=== PATIENT | female | born 1980 ===

== ENCOUNTER 2017-03-09 15:51 | Inpatient (IN) | payer OTHER ==
[2017-03-09 15:51] VITALS: BMI 27.9
--- NOTE | 2017-03-09 16:33 | C.PDOC ---
History Of Present Illness 36 y/o female with PMHx of Asthma presents to ED with complaints of productive cough, nasal congestion and wheezing with worsening for x3 days. Patient reports home nebulizer not working and subjective fever of 100.1 last night. Patient denies N/V/D, weakness or any other complaints at this time. Time Seen by Provider: 03/09/17 16:10 Chief Complaint (Nursing): Respiratory Distress History Per: Patient History/Exam Limitations: no limitations Onset/Duration Of Symptoms: Days Current Symptoms Are (Timing): Still Present Past Medical History Reviewed: Historical Data, Nursing Documentation, Vital Signs Vital Signs: Last Vital Signs Temp 98.2 F 03/10/17 16:00 Pulse 118 H 03/10/17 16:41 Resp 20 03/10/17 16:00 BP 132/85 03/10/17 16:41 Pulse Ox 96 03/10/17 18:01 - Medical History PMH: Anxiety, Arthritis, Asthma, CAD, Diabetes, Fractures (right middle finger, right foot), Gastritis, HTN, Hypercholesterolemia, Hypothyroidism, Kidney Stones , Sleep Apnea (mild) Surgical History: Endoscopy (2013) - [facility] Procedures HIGHLY SELECT VAGOTOMY (04/18/14) LAPAROSCOPIC GASTROENTEROSTOMY (04/18/14) LINEAR REP LID LACER (03/06/13) OTHER ENDOSCOPY OF SM INTEST (04/18/14) Family History: States: Unknown Family Hx - Social History Hx Tobacco Use: Yes Hx Alcohol Use: No Hx Substance Use: No - Immunization History Hx Tetanus Toxoid Vaccination: Yes Hx Influenza Vaccination: Yes Hx Pneumococcal Vaccination: No Review Of Systems Except As Marked, All Systems Reviewed And Found Negative. Constitutional: Negative for: Fever, Chills ENT: Positive for: Nose Congestion Cardiovascular: Negative for: Chest Pain Respiratory: Positive for: Cough. Negative for: Shortness of Breath Gastrointestinal: Negative for: Nausea, Vomiting, Diarrhea Neurological: Negative for: Weakness, Numbness Physical Exam - Physical Exam Appears: Non-toxic, No Acute Distress Skin: Normal Color, Warm Head: Atraumatic, Normacephalic Oral Mucosa: Moist Cardiovascular: Rhythm Regular Respiratory: No Rales, No Rhonchi, Wheezing (Difusse wheezing) Gastrointestinal/Abdominal: Soft, No Tenderness, No Guarding, No Rebound Extremity: Normal ROM Neurological/Psych: Oriented x3, Normal Speech, Normal Cognition, Other (No focal deficits) ED Course And Treatment - Laboratory Results Result Diagrams: 03/10/17 07:18 03/10/17 07:18 O2 Sat by Pulse Oximetry: 96 (RA) Pulse Ox Interpretation: Normal Medical Decision Making Medical Decision Making: pt still w sig wheezing, decreased air movement, sob after duoneb x3 disc w hosp who will admit Disposition - Disposition Disposition: HOSPITALIZED Disposition Time: 18:49 Condition: STABLE - Clinical Impression Clinical Impression: Exacerbation of asthma - PA / TECHNICAL SERVICE REP / Resident Statement MD/DO has reviewed & agrees with the documentation as recorded. MD/DO has examined the patient and agrees with the treatment plan. - Scribe Statement The provider has reviewed the documentation as recorded by the Anurag Brooks All medical record entries made by the Anurag were at my direction and personally dictated by me. I have reviewed the chart and agree that the record accurately reflects my personal performance of the history, physical exam, medical decision making, and the department course for this patient. I have also personally directed, reviewed, and agree with the discharge instructions and disposition.
[2017-03-09] MEDS: Albuterol-Ipratrop 3 mg / 0.5 (3 ml) UD IH SCH ×3 (16:40→16:49)
[2017-03-09] MEDS ORDERED: Albuterol-Ipratrop 3 mg / 0.5 (3 ml) UD ONE (16:42)
[2017-03-09 18:26] LABS: BASO % 0.1 % (0.0-2.0); EOS % 0.1 % (0.0-4.0); HEMATOCRIT 33.2 % (34.0-47.0); LYMPH # 0.6 K/uL (1.0-4.3); LYMPH % 2.9 % (20.0-40.0); MEAN CORPUSCULAR HEMOGLOBIN 27.1 pg (27.0-31.0); MEAN CORPUSCULAR HGB CONC 31.7 g/dL (33.0-37.0); MEAN PLATELET VOLUME 7.5 fL (7.2-11.7); MONO # 0.3 K/uL (0.0-0.8); MONO % 1.4 % (0.0-10.0); PLATELET COUNT 360 K/uL (130-400); RED CELL DISTRIBUTION WIDTH 17.6 % (11.5-14.5)
[2017-03-09 18:28] LABS: MEAN CELL VOLUME 85.5 fL (81.0-99.0); WHITE BLOOD COUNT 20.4 K/uL (4.8-10.8)
[2017-03-09 18:34] LABS: CHLORIDE 99 mmol/L (98-107); POTASSIUM 3.9 mmol/L (3.6-5.2); SODIUM 135 mmol/L (132-148)
[2017-03-09 18:37] LABS: ALB/GLOB RATIO 1.4 (1.0-2.1); ALKALINE PHOSPHATASE 109 U/L (38-126); ALT/SGPT 35 U/L (9-52); AST/SGOT 38 U/L (14-36); BILIRUBIN,TOTAL 0.6 mg/dL (0.2-1.3); BLOOD UREA NITROGEN 8 mg/dL (7-17); CARBON DIOXIDE 24 mmol/L (22-30); GFR AFRICAN-AMERICAN > 60; GLUCOSE,RANDOM 248 mg/dL (65-105); TOTAL PROTEIN 6.8 g/dL (6.3-8.3)
[2017-03-09 18:38] LABS: CALCIUM 8.5 mg/dl (8.6-10.4)
[2017-03-09 19:17] LABS: NEUTROPHIL 94 % (50-75); TOTAL CELLS COUNTED 100
[2017-03-09] MEDS ORDERED: Albuterol-Ipratrop 3 mg / 0.5 (3 ml) UD INH STA (21:00)
--- NOTE | 2017-03-09 21:13 | CP.PCM.HP ---
<Saravanan Pierce - Last Filed: 03/10/17 07:39> History of Present Illness - History of Present Illness History of Present Illness: HPI: Patient is a 36 yo female, with PMHx of asthma, anxiety, HTN, T2DM, hyperlipidemia, gastritis, KEM, hypothyroid, who presents to ED with 3 day history of productive cough, SOB, and wheezing. She admits to multiple hospitalizations/ED visits for asthma exacerbations, the most recent being in [place]. She denies previous intubation, but admits to 'close-call' at [facility] in May of 2016. Patient states she usually has asthma exacerbations with 'weather changes' and during tree pollen allergy season. She admits productive cough with yellow-green sputum for last two days, but denies worsening of cough at night. She reports taking Claritin and Em, and using her nebulizer four times daily without improvement. Wheezing started last night , and was unresponsive to home meds. Patient denies recent sick contacts, recent travel, recent antibiotic use. As above, pt last admission/ED visit was to [place] on 02/09/17, that resulted in discharge with 5 days of Prednisone taper. On that visit pt was called back for xray finding showing 11mm nodular opacity, and radiologist recommended repeat CXR or CT Chest w/o contrast as follow-up. Pt denies having this test performed. She admits non-compliance with diabetes, hypothyroid, or vitamins post-gastric bypass. Denies CP, abd pain, fevers, chills, n/v/d/c, rashes, headache, dizziness, fatigue. 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 absent: Chest Pain, Lightheadedness , Palpitations - Respiratory Respiratory: Cough (productive, yellow-green sputum), Wheezing - Gastrointestinal Gastrointestinal: absent: Abdominal Pain, Nausea, Vomiting - Genitourinary Genitourinary: absent: Difficulty Urinating, Dysuria - Musculoskeletal Musculoskeletal: absent: Back Pain, Numbness, Tingling - Neurological Neurological: absent: Tingling, Weakness - Psychiatric Psychiatric: Anxiety. absent: Depression - Endocrine Endocrine: absent: Polydipsia, Polyphagia, Polyuria Past Patient History - Infectious Disease Hx of Infectious Diseases: None - Past Medical History & Family History Past Medical History?: Yes - Past Social History Smoking Status: Light Smoker < 10 Cigarettes Daily - CARDIAC Hx Hypercholesterolemia: Yes Hx Hypertension: Yes - PULMONARY Hx Asthma: Yes Hx Sleep Apnea: Yes (mild) - RENAL Hx Kidney Stones: Yes - ENDOCRINE/METABOLIC Hx Hypothyroidism: Yes - MUSCULOSKELETAL/RHEUMATOLOGICAL Hx Arthritis: Yes Hx Falls: No Hx Fractures: Yes (right middle finger, right foot) - GASTROINTESTINAL Hx Gastritis: Yes - PSYCHIATRIC Hx Anxiety: Yes Hx Substance Use: No - SURGICAL HISTORY Hx Gastric Bypass Surgery: Yes Hx Orthopedic Surgery: Yes (right knee) - ANESTHESIA Hx Anesthesia: Yes Hx Anesthesia Reactions: No Hx Malignant Hyperthermia: No Meds Allergies/Adverse Reactions: Allergies Allergy/AdvReac Type Severity Reaction Status Date / Time moxifloxacin [From Avelox] Allergy SHORTNESS Verified 03/09/17 16:06 OF BREATH moxifloxacin HCl Allergy Verified 03/09/17 16:06 [From Avelox] Physical Exam - Constitutional Appears: Non-toxic, No Acute Distress Additional comments: pt uncomfortable, but able to speak in full sentences - Head Exam Head Exam: ATRAUMATIC, NORMAL INSPECTION, NORMOCEPHALIC - Eye Exam Eye Exam: EOMI Pupil Exam: PERRL - ENT Exam ENT Exam: Mucous Membranes Moist - Respiratory Exam Respiratory Exam: Accessory Muscle Use, Chest Wall Tenderness, Wheezes, Respiratory Distress (mild). absent: Clear to Auscultation Bilateral - Cardiovascular Exam Cardiovascular Exam: Tachycardia, +S1, +S2 - GI/Abdominal Exam GI & Abdominal Exam: Normal Bowel Sounds, Soft. absent: Distended, Guarding, Tenderness - Extremities Exam Extremities exam: Positive for: normal inspection. Negative for: pedal edema - Back Exam Back exam: vertebral tenderness. absent: CVA tenderness (L), CVA tenderness (R) Additional comments: T2-T6 SrRr - Neurological Exam Neurological exam: Alert, CN II-XII Intact, Oriented x3 - Psychiatric Exam Psychiatric exam: Normal Affect, Normal Mood - Skin Skin Exam: Dry, Normal Color, Warm Results - Vital Signs Recent Vital Signs: Last Vital Signs Temp 98.5 F 03/09/17 20:00 Pulse 115 H 03/09/17 21:11 Resp 20 03/09/17 20:00 BP 130/70 03/09/17 20:00 Pulse Ox 93 L 03/09/17 19:18 - Labs Result Diagrams: 03/10/17 07:18 03/09/17 18:20 Assessment & Plan - Assessment and Plan (Free Text) Assessment: 36 y/o female with PMHx of asthma, anxiety, HTN, T2DM, hyperlipidemia, gastritis, KEM, hypothyroid presents to ED with complaints of productive cough, nasal congestion and wheezing with worsening for x3 days. Plan: Asthma Exacerbation Observation on Med-surg Moderate persistent Asthma Never intubated, multiple ED/hospitalizations - latest [place] 02/09/17, called back for opacity on X-ray but did not follow PCXR (03/09/17): NAD (wetread, f/u official) O2 2L Duoneb Q6H [facility] Pulmicort Respules 0.5mg INH Q12H Solu-medrol 40mg IV Q12H Singulair 10 mg po hs Cough yellow-green sputum elevated WBC, left shift Azithromycin 250 mg PO PCXR (03/09/17): NAD (wetread, f/u official) Leukocytosis WBC 20.4 Left shift, 2 bands Azithromycin 250 mg PO Diabetes Mellitus (Type 2) Admittedly non-compliant - has not taken Januvia for one year Regular Insulin sliding scale SC Accuchecks f/u A1C Hx of HTN (hypertension) Since Gastric Bypass has not taken meds Normotensive Monitor Hx of Hypothyroid Pt admits non-compliance f/u TSH Hypercholesterolemia Pt not taking meds f/u fasting lipid panel Hx gastric bypass for obesity Gastric bypass (2003) Denies taking MV/supplementation f/u iron studies, Vit B12, folate, Vit D Anemia Hgb: 10.5 on admission f/u iron studies Anxiety Alprazolam 1mg PO TID Hx of KEM No hx of bipap Smoker 1ppd x 20 yrs, 1/2 ppd x 3 yrs Pt refusing nicotine patch Prophylaxis B/L SCD Pepcid 20mg PO BID heparin 5000 u SC Q12H <Dre Davidson - Last Filed: 03/13/17 23:27> Results - Vital Signs Recent Vital Signs: Last Vital Signs Temp 97.5 F L 03/13/17 21:46 Pulse 100 H 03/13/17 21:46 Resp 20 03/13/17 21:46 BP 101/67 03/13/17 21:46 Pulse Ox 95 03/13/17 21:46 - Labs Result Diagrams: 03/13/17 08:26 03/13/17 08:26 Labs: Laboratory Results - last 24 hr 03/13/17 03/13/17 03/13/17 07:20 08:26 08:26 WBC 13.7 H RBC 4.13 Hgb 11.3 Hct 35.1 MCV 85.0 MCH 27.4 MCHC 32.3 L RDW 17.9 H Plt Count 386 MPV 7.6 Neut % (Auto) 73.1 Lymph % (Auto) 20.8 [place] % (Auto) 5.6 Eos % (Auto) 0.0 Baso % (Auto) 0.5 Neut # 10.0 H Lymph # 2.8 [place] # 0.8 Eos # 0.0 Baso # 0.1 Sodium 135 Potassium 3.9 Chloride 97 L Carbon Dioxide 27 Anion Gap 15 BUN 14 Creatinine 0.6 L Est GFR ( Amer) > 60 Est GFR (Non-Af Amer) > 60 POC Glucose (mg/dL) 196 H Random Glucose 177 H Calcium 8.4 L Phosphorus 3.7 Magnesium 2.3 Total Bilirubin 0.6 AST 63 H D ALT 91 H D Alkaline Phosphatase 99 Total Protein 6.8 Albumin 3.9 Globulin 2.9 Albumin/Globulin Ratio 1.4 03/13/17 03/13/17 03/13/17 11:10 16:46 21:25 WBC RBC Hgb Hct MCV MCH MCHC RDW Plt Count MPV Neut % (Auto) Lymph % (Auto) [place] % (Auto) Eos % (Auto) Baso % (Auto) Neut # Lymph # [place] # Eos # Baso # Sodium Potassium Chloride Carbon Dioxide Anion Gap BUN Creatinine Est GFR ( Amer) Est GFR (Non-Af Amer) POC Glucose (mg/dL) 145 H 363 H 173 H Random Glucose Calcium Phosphorus Magnesium Total Bilirubin AST ALT Alkaline Phosphatase Total Protein Albumin Globulin Albumin/Globulin Ratio Attending/Attestation - Attestation I have personally seen and examined this patient.: Yes I have fully participated in the care of the patient.: Yes I have reviewed all pertinent clinical information: Yes
[2017-03-09] MEDS ORDERED: MethylPREDNISolone 40 mg Vial IVP SCH (21:15)
[2017-03-09 21:26] LABS: ARTERIAL BLOOD HGB O2 SAT 94.9 % (95.0-98.0); CARBOXYHEMOGLOBIN 0 % (0.5-1.5); DRAW SITE RRA; HHB 4.8 % (0.0-5.0); METHEMOGLOBIN 0.3 % (0.0-3.0)
[2017-03-09] MEDS ORDERED: Fluticasone-Salmeterol 250-50mcg Diskus IH SCH (22:00)
[2017-03-10 07:34] LABS: BASO % 0.1 % (0.0-2.0); LYMPH % 7.2 % (20.0-40.0); MEAN CELL VOLUME 84.2 fL (81.0-99.0); MEAN CORPUSCULAR HEMOGLOBIN 27.6 pg (27.0-31.0); MEAN CORPUSCULAR HGB CONC 32.8 g/dL (33.0-37.0); MEAN PLATELET VOLUME 7.8 fL (7.2-11.7); MONO # 0.4 K/uL (0.0-0.8); MONO % 3.2 % (0.0-10.0); PLATELET COUNT 347 K/uL (130-400); RED CELL DISTRIBUTION WIDTH 17.8 % (11.5-14.5); WHITE BLOOD COUNT 13.9 K/uL (4.8-10.8)
[2017-03-10 07:59] LABS: CHLORIDE 103 mmol/L (98-107); POTASSIUM 4.3 mmol/L (3.6-5.2); SODIUM 138 mmol/L (132-148)
[2017-03-10] MEDS ORDERED: Albuterol-Ipratrop 3 mg / 0.5 (3 ml) UD INH SCH (08:00)
[2017-03-10] MEDS ORDERED: Budesonide 0.5 mg/2 ml Inhal Susp UD INH SCH (08:00)
[2017-03-10 08:01] LABS: ALB/GLOB RATIO 1.3 (1.0-2.1); ALKALINE PHOSPHATASE 105 U/L (38-126); AST/SGOT 29 U/L (14-36); BILIRUBIN,TOTAL 0.7 mg/dL (0.2-1.3); BLOOD UREA NITROGEN 11 mg/dL (7-17); CARBON DIOXIDE 24 mmol/L (22-30); CHOLESTEROL 220 mg/dL (0-199); GFR AFRICAN-AMERICAN > 60; TOTAL PROTEIN 6.9 g/dL (6.3-8.3)
[2017-03-10 08:02] LABS: ALT/SGPT 31 U/L (9-52); CALCIUM 8.8 mg/dl (8.6-10.4); GLUCOSE,RANDOM 165 mg/dL (65-105); MAGNESIUM 2.1 mg/dL (1.6-2.3); PHOSPHOROUS 3.3 mg/dL (2.5-4.5)
[2017-03-10 08:03] LABS: IRON 25 ug/dL (37-170)
[2017-03-10] MEDS: (Novolin R) Insulin Human Regular 100 units/ml vial SC SCH ×4 (08:05→21:50)
[2017-03-10 08:32] LABS: THYROID STIMULATING HORMONE 0.63 mIU/L (0.46-4.68)
[2017-03-10 09:07] LABS: FOLATE 10.3 ng/mL
[2017-03-10 09:14] LABS: NEUTROPHIL 84 % (50-75); TOTAL CELLS COUNTED 100
--- NOTE | 2017-03-10 09:27 | RAD ---
HISTORY: sob COMPARISON: 08/16/2016 FINDINGS: LUNGS: Again identified are small nodules and or nodular densities at the left lung base. This may be better evaluated with chest CT. Mild venous congestion. PLEURA: No significant pleural effusion identified, no pneumothorax apparent. CARDIOVASCULAR: Normal. OSSEOUS STRUCTURES: No significant abnormalities. VISUALIZED UPPER ABDOMEN: Normal. OTHER FINDINGS: None. IMPRESSION: Again identified are small nodules and or nodular densities at the left lung base. This may be better evaluated with chest CT. Mild venous congestion.
[2017-03-10] MEDS ORDERED: MethylPREDNISolone 40 mg Vial IVP SCH (10:00)
[2017-03-10] MEDS: Ergocalciferol 50,000 Intl Units Cap PO SCH (12:21)
--- NOTE | 2017-03-10 13:36 | CP.PCM.PN ---
<Layla Poe - Last Filed: 03/10/17 13:46> Subjective - Date & Time of Evaluation Date of Evaluation: 03/10/17 Time of Evaluation: 07:20 - Subjective Subjective: Patient seen and examined at bedside this morning. She admits to being short of breath and still wheezing. She states that she is using her albuterol inhaler multiple ties a day as well as Ventolin and Advair as prescribed. She denies fever/chills but admits to a productive cough with yellow mucus. She denies chest pain but admits to chest tightness. She denies all other complaints. Objective - Vital Signs/Intake and Output Vital Signs (last 24 hours): Temp Pulse Resp BP Pulse Ox 98.3 F 130 H 20 129/92 H 93 L 03/10/17 08:22 03/10/17 08:22 03/10/17 08:22 03/10/17 08:22 03/10/17 08:22 Intake and Output: 03/10/17 03/10/17 06:59 18:59 Intake Total 300 Balance 300 - Medications Medications: Current Medications Albuterol/Ipratropium (Duoneb 3 Mg/0.5 Mg (3 Ml) Ud) 3 ml INH RQ3 [facility] Alprazolam (Xanax) 1 mg PO TID [facility] Last Admin: 03/10/17 09:33 Dose: 1 mg Ascorbic Acid (Vitamin C 250 Mg Tab) 250 mg PO DAILY [facility] Last Admin: 03/10/17 12:26 Dose: 250 mg Azithromycin (Zithromax) 250 mg PO DAILY [facility] Last Admin: 03/10/17 09:33 Dose: 250 mg Ergocalciferol (Drisdol 50,000 Intl Units Cap) 1 cap PO Q7D [facility] Last Admin: 03/10/17 12:21 Dose: 1 cap Famotidine (Pepcid) 20 mg PO BID [facility] Last Admin: 03/10/17 09:33 Dose: 20 mg Ferrous Sulfate (Feosol) 325 mg PO BID [facility] Last Admin: 03/10/17 10:30 Dose: 325 mg Heparin Sodium (Porcine) (Heparin) 5,000 units SC Q12 [facility] Last Admin: 03/10/17 09:32 Dose: 5,000 units Insulin Human Regular (Novolin R) 0 unit SC ACHS [facility] PRN Reason: Protocol Last Admin: 03/10/17 12:16 Dose: Not Given Methylprednisolone (Solu-Medrol) 40 mg IVP Q8 [facility] Montelukast Sodium (Singulair) 10 mg PO HS [facility] Last Admin: 03/09/17 22:13 Dose: 10 mg Fluticasone/Salmeterol (Advair Diskus 500/50) 1 puff INH RQ12 [facility] - Labs Labs: 03/10/17 07:18 03/10/17 07:18 - Constitutional Appears: Non-toxic (speaking in full sentences), No Acute Distress - Head Exam Head Exam: ATRAUMATIC, NORMAL INSPECTION - Eye Exam Eye Exam: EOMI, Normal appearance Pupil Exam: NORMAL ACCOMODATION - ENT Exam ENT Exam: Mucous Membranes Moist - Respiratory Exam Respiratory Exam: Wheezes (in all lung carbone bilaterally). absent: Accessory Muscle Use, Respiratory Distress - Cardiovascular Exam Cardiovascular Exam: REGULAR RHYTHM, +S1, +S2 - GI/Abdominal Exam GI & Abdominal Exam: Soft, Normal Bowel Sounds. absent: Distended, Firm, Guarding, Tenderness - Extremities Exam Extremities Exam: Normal Inspection - Back Exam Back Exam: NORMAL INSPECTION. absent: CVA tenderness (L), CVA tenderness (R), paraspinal tenderness - Neurological Exam Neurological Exam: Alert, Awake, Oriented x3 - Psychiatric Exam Psychiatric exam: Normal Affect, Normal Mood - Skin Skin Exam: Dry, Intact, Normal Color, Warm Assessment and Plan - Assessment and Plan (Free Text) Assessment: 36 y/o female with PMHx of asthma, anxiety, HTN, T2DM, hyperlipidemia, gastritis, KEM, hypothyroid presents to ED with complaints of productive cough, nasal congestion and wheezing with worsening for x3 days. Plan: Asthma Exacerbation Observation on Med-surg Moderate persistent Asthma Never intubated, multiple ED/hospitalizations - latest [place] 02/09/17, called back for opacity on X-ray but did not follow PCXR (03/09/17): left nodular densities at left lung base O2 2L prn Duoneb Q3H [facility] Advair 500/50 INh RQ12 Solu-medrol 40mg IV [id number] Singulair 10 mg po hs Peak flow 120 f/u am labs f/u CT chest Cough yellow-green sputum elevated WBC, left shift Azithromycin 250 mg PO daily Leukocytosis WBC 13.9 from 20.4 Left shift, 2 bands on admisison, 0 bands today Azithromycin 250 mg PO daily Diabetes Mellitus (Type 2) Admittedly non-compliant - has not taken Januvia for one year Regular Insulin sliding scale SC Accuchecks HbA1c - 6.3 Crestor 5 mg PO HS added Hx of HTN (hypertension) Since Gastric Bypass has not taken meds Normotensive Monitor Hx of Hypothyroid Pt admits non-compliance TSH 0.63 f/u free T4, T3 Hypercholesterolemia Pt not taking meds LDL 138, HDL 67, Tchol 220, Trig 112 Crestor 5 mg PO HS added Hx gastric bypass for obesity Gastric bypass (2003) Denies taking MV/supplementation Fe 25, TIBC 407, %sat 6, Michael 8.7 Ferrous sulfate 325 mg PO BID Vit B12 562 Folate 10.4 Vit D 14 - With give 50,000 U Vit D weekly first dose (03/10) Anemia Hgb: 10.5 on admission see above monitor Anxiety Alprazolam 1mg PO TID Hx of KEM No hx of bipap Smoker 1ppd x 20 yrs, 1/2 ppd x 3 yrs Pt refusing nicotine patch Prophylaxis B/L SCD Pepcid 20mg PO BID heparin 5000 u SC Q12H <Mk Villanueva H - Last Filed: 03/10/17 14:31> Objective - Vital Signs/Intake and Output Vital Signs (last 24 hours): Temp Pulse Resp BP Pulse Ox 98.3 F 130 H 20 129/92 H 93 L 03/10/17 08:22 03/10/17 08:22 03/10/17 08:22 03/10/17 08:22 03/10/17 08:22 Intake and Output: 03/10/17 03/10/17 06:59 18:59 Intake Total 300 Balance 300 - Medications Medications: Current Medications Albuterol/Ipratropium (Duoneb 3 Mg/0.5 Mg (3 Ml) Ud) 3 ml INH RQ3 [facility] Last Admin: 03/10/17 13:46 Dose: 3 ml Alprazolam (Xanax) 1 mg PO TID [facility] Last Admin: 03/10/17 14:26 Dose: 1 mg Ascorbic Acid (Vitamin C 250 Mg Tab) 250 mg PO DAILY [facility] Last Admin: 03/10/17 12:26 Dose: 250 mg Azithromycin (Zithromax) 250 mg PO DAILY [facility] Last Admin: 03/10/17 09:33 Dose: 250 mg Ergocalciferol (Drisdol 50,000 Intl Units Cap) 1 cap PO Q7D [facility] Last Admin: 03/10/17 12:21 Dose: 1 cap Famotidine (Pepcid) 20 mg PO BID [facility] Last Admin: 03/10/17 09:33 Dose: 20 mg Ferrous Sulfate (Feosol) 325 mg PO BID [facility] Last Admin: 03/10/17 10:30 Dose: 325 mg Heparin Sodium (Porcine) (Heparin) 5,000 units SC Q12 [facility] Last Admin: 03/10/17 09:32 Dose: 5,000 units Insulin Human Regular (Novolin R) 0 unit SC ACHS [facility] PRN Reason: Protocol Last Admin: 03/10/17 12:16 Dose: Not Given Methylprednisolone (Solu-Medrol) 40 mg IVP Q8 [facility] Last Admin: 03/10/17 14:26 Dose: 40 mg Montelukast Sodium (Singulair) 10 mg PO HS [facility] Last Admin: 03/09/17 22:13 Dose: 10 mg Rosuvastatin Calcium (Crestor) 5 mg PO HS [facility] Fluticasone/Salmeterol (Advair Diskus 500/50) 1 puff INH RQ12 [facility] Last Admin: 03/10/17 13:45 Dose: Not Given - Labs Labs: 03/10/17 07:18 03/10/17 07:18 Attending/Attestation - Attestation I have personally seen and examined this patient.: Yes I have fully participated in the care of the patient.: Yes I have reviewed all pertinent clinical information, including history, physical exam and plan: Yes Notes (Text): 03/10/17 14:29 Medical Attending: Patient was seen and examined by me. Agree with the above note by the resident The patient was reporting breathing was somewhat easier today but still heavy wheezing. Will change Advair, also increase the IV solumedrol to TID I tried to find a peak flow meter but it was not readily available. thank you kM Villanueva
[2017-03-10] MEDS: Fluticasone-Salmeterol 500-50mcg Diskus INH SCH ×2 (13:45→19:47)
[2017-03-10] MEDS: Albuterol-Ipratrop 3 mg / 0.5 (3 ml) UD INH SCH ×6 (13:46→23:56)
[2017-03-10] MEDS: MethylPREDNISolone 40 mg Vial IVP SCH ×2 (14:26→21:47)
--- NOTE | 2017-03-10 15:29 | CT ---
PROCEDURE: CT Chest without contrast HISTORY: nodular opacities seen on Xray LLung base COMPARISON: None. TECHNIQUE: Contiguous axial images were obtained through the chest without intravenous contrast enhancement. Sagittal and coronal reconstructions were performed. Radiation dose (DLP): 655.38 mGy-cm. This CT exam was performed using one or more of the following dose reduction techniques: Automated exposure control, adjustment of the mA and/or kV according to patient size, and/or use of iterative reconstruction technique. FINDINGS: LUNGS: There is no pulmonary consolidation. There are multiple small bilateral areas of ground-glass opacity, somewhat ill-defined, in both upper lobes and in the right lower lobe. This is nonspecific. This may represent a multifocal infectious or inflammatory process. This is unlikely to represent neoplastic process. Followup with noncontrast chest CT is advised. There is no pulmonary mass. MEDIASTINUM: Unremarkable thoracic aorta. No aneurysm. Normal sized heart. Main pulmonary artery unremarkable. No vascular congestion. No lymphadenopathy. There is circumferential mural thickening of the distal esophagus. There are postsurgical changes at the region of the gastroesophageal junction and in the gastric fundus. Consider further evaluation of the distal esophagus with endoscopy to exclude neoplasm. PLEURA: No pleural fluid. No pneumothorax. BONES: There is a rounded densely sclerotic focus in the anterior end of the left 6th rib. This is likely responsible for the nodular opacity seen on chest radiograph. Most likely this represents a bone island. No other sclerotic foci are appreciated elsewhere. UPPER ABDOMEN: Aside from postoperative changes of stomach as above common no additional abnormality. OTHER FINDINGS: None. IMPRESSION: Circumscribed sclerotic focus in the anterior end of the left 6th rib, most likely a bone island, accounts for the nodular opacity on chest radiograph. Postsurgical changes in stomach and in the region of the gastroesophageal junction. Circumferential mural thickening of distal esophagus. Consider further evaluation with endoscopy. Multifocal small ill-defined areas of ground-glass opacity in both lungs. Nonspecific. Consider infectious or inflammatory etiology. Followup with noncontrast chest CT examination is advised.
[2017-03-10] MEDS ORDERED: Oxycodone/Acetaminophen 5/325 mg Tab PO STA (22:13)
[2017-03-11] MEDS: Albuterol-Ipratrop 3 mg / 0.5 (3 ml) UD INH SCH ×7 (02:54→20:26)
[2017-03-11] MEDS: MethylPREDNISolone 40 mg Vial IVP SCH ×3 (06:04→21:46)
[2017-03-11] MEDS: (Novolin R) Insulin Human Regular 100 units/ml vial SC SCH ×4 (07:59→21:46)
[2017-03-11 08:08] LABS: BASO # 0.1 K/uL (0.0-0.2); BASO % 0.3 % (0.0-2.0); LYMPH # 1.6 K/uL (1.0-4.3); LYMPH % 8.2 % (20.0-40.0); MEAN CELL VOLUME 84.7 fL (81.0-99.0); MEAN CORPUSCULAR HEMOGLOBIN 27.2 pg (27.0-31.0); MEAN CORPUSCULAR HGB CONC 32.1 g/dL (33.0-37.0); MONO # 0.6 K/uL (0.0-0.8); MONO % 2.8 % (0.0-10.0); PLATELET COUNT 354 K/uL (130-400); RED CELL DISTRIBUTION WIDTH 17.6 % (11.5-14.5); WHITE BLOOD COUNT 19.7 K/uL (4.8-10.8)
[2017-03-11 08:16] LABS: CHLORIDE 102 mmol/L (98-107); POTASSIUM 4.2 mmol/L (3.6-5.2); SODIUM 136 mmol/L (132-148)
[2017-03-11 08:18] LABS: GFR AFRICAN-AMERICAN > 60
[2017-03-11 08:19] LABS: ALB/GLOB RATIO 1.3 (1.0-2.1); ALKALINE PHOSPHATASE 110 U/L (38-126); ALT/SGPT 29 U/L (9-52); AST/SGOT 22 U/L (14-36); BILIRUBIN,TOTAL 0.6 mg/dL (0.2-1.3); BLOOD UREA NITROGEN 17 mg/dL (7-17); CALCIUM 8.6 mg/dl (8.6-10.4); CARBON DIOXIDE 24 mmol/L (22-30); GLUCOSE,RANDOM 155 mg/dL (65-105); MAGNESIUM 2.2 mg/dL (1.6-2.3); PHOSPHOROUS 3.6 mg/dL (2.5-4.5); TOTAL PROTEIN 6.7 g/dL (6.3-8.3)
[2017-03-11 08:58] LABS: NEUTROPHIL 94 % (50-75); TOTAL CELLS COUNTED 100
[2017-03-11] MEDS: Promethazine 12.5 mg/10 ml Syrup PO PRN ×2 (10:28→18:17)
[2017-03-11] MEDS: Fluticasone-Salmeterol 500-50mcg Diskus INH SCH ×2 (10:46→20:26)
--- NOTE | 2017-03-11 12:49 | CP.PCM.PN ---
<Layla Poe - Last Filed: 03/11/17 13:03> Subjective - Date & Time of Evaluation Date of Evaluation: 03/11/17 Time of Evaluation: 07:00 - Subjective Subjective: Patient seen and examined at bedside this morning. She admits to being short of breath and still wheezing but have improved since yesterday. She is still coughing. She denies fever/chills. She denies chest pain but admits to chest tightness. She denies all other complaints. She was requesting oxycodone stating she take 2-3 a day which is given to her from pain management. Objective - Vital Signs/Intake and Output Vital Signs (last 24 hours): Temp Pulse Resp BP Pulse Ox 98 F 92 H 20 138/90 97 03/11/17 07:43 03/11/17 07:43 03/11/17 07:43 03/11/17 07:43 03/11/17 07:43 Intake and Output: 03/11/17 03/11/17 06:59 18:59 Intake Total 700 Balance 700 - Medications Medications: Current Medications Albuterol/Ipratropium (Duoneb 3 Mg/0.5 Mg (3 Ml) Ud) 3 ml INH RQ3 [facility] Last Admin: 03/11/17 11:05 Dose: 3 ml Alprazolam (Xanax) 1 mg PO TID [facility] Last Admin: 03/11/17 10:29 Dose: 1 mg Ascorbic Acid (Vitamin C 250 Mg Tab) 250 mg PO DAILY [facility] Last Admin: 03/11/17 10:29 Dose: 250 mg Azithromycin (Zithromax) 250 mg PO DAILY [facility] Last Admin: 03/11/17 10:29 Dose: 250 mg Ergocalciferol (Drisdol 50,000 Intl Units Cap) 1 cap PO Q7D [facility] Last Admin: 03/10/17 12:21 Dose: 1 cap Famotidine (Pepcid) 20 mg PO BID [facility] Last Admin: 03/11/17 10:29 Dose: 20 mg Ferrous Sulfate (Feosol) 325 mg PO BID [facility] Last Admin: 03/11/17 10:29 Dose: 325 mg Heparin Sodium (Porcine) (Heparin) 5,000 units SC Q12 [facility] Last Admin: 03/11/17 10:30 Dose: 5,000 units Insulin Human Regular (Novolin R) 0 unit SC ACHS [facility] PRN Reason: Protocol Last Admin: 03/11/17 12:31 Dose: 4 unit Methylprednisolone (Solu-Medrol) 40 mg IVP Q12 [facility] Last Admin: 03/11/17 10:30 Dose: 40 mg Montelukast Sodium (Singulair) 10 mg PO HS [facility] Last Admin: 03/10/17 21:48 Dose: 10 mg Promethazine HCl (Phenergan Syrup) 12.5 mg PO Q6 PRN PRN Reason: Cough Last Admin: 03/11/17 10:28 Dose: 12.5 mg Rosuvastatin Calcium (Crestor) 5 mg PO HS [facility] Last Admin: 03/10/17 21:48 Dose: 5 mg Fluticasone/Salmeterol (Advair Diskus 500/50) 1 puff INH RQ12 [facility] Last Admin: 03/11/17 10:46 Dose: 1 puff - Labs Labs: 03/11/17 07:37 03/11/17 07:37 - Constitutional Appears: Non-toxic, No Acute Distress - Head Exam Head Exam: NORMAL INSPECTION - Eye Exam Eye Exam: EOMI - ENT Exam ENT Exam: Mucous Membranes Moist - Respiratory Exam Respiratory Exam: Decreased Breath Sounds, Clear to Ausculation Bilateral, Wheezes, NORMAL BREATHING PATTERN. absent: Accessory Muscle Use, Respiratory Distress - Cardiovascular Exam Cardiovascular Exam: REGULAR RHYTHM, +S1, +S2 - GI/Abdominal Exam GI & Abdominal Exam: Soft, Normal Bowel Sounds. absent: Distended, Firm, Guarding, Tenderness - Extremities Exam Extremities Exam: Normal Inspection. absent: Calf Tenderness - Back Exam Back Exam: NORMAL INSPECTION. absent: CVA tenderness (L), CVA tenderness (R), paraspinal tenderness - Neurological Exam Neurological Exam: Alert, Awake. absent: Oriented x3 Neuro motor strength exam: Left Upper Extremity: 5, Right Upper Extremity: 5, Left Lower Extremity: 5, Right Lower Extremity: 5 - Psychiatric Exam Psychiatric exam: Anxious, Normal Affect, Normal Mood - Skin Skin Exam: Dry, Intact, Normal Color, Warm Assessment and Plan - Assessment and Plan (Free Text) Assessment: 36 y/o female with PMHx of asthma, anxiety, HTN, T2DM, hyperlipidemia, gastritis, KEM, hypothyroid presents to ED with complaints of productive cough, nasal congestion and wheezing with worsening for x3 days. Plan: Asthma Exacerbation Observation on Med-surg Moderate persistent Asthma Never intubated, multiple ED/hospitalizations - latest [place] 02/09/17, called back for opacity on X-ray but did not follow PCXR (03/09/17): left nodular densities at left lung base O2 2L prn Duoneb Q4H [facility] Advair 500/50 INh RQ12 Solu-medrol 40mg IV [id number] Singulair 10 mg po hs Peak flow 200, was 120 yesterday, improving CT - Circumscribed sclerotic focus in the anterior end of the left 6th rib most likely a bone island, accounts for nodular opacity on chest radiograph. Postsurgical changes. Mural thickening of the distal esophagus. Consider endoscopy. Multifocal small ill-defined areas of groundglass opacity in both lungs. nonspecific. Consider infectious or inflammatory etiology. Follow up with noncontrast CT exam is advised. f/u am labs Cough yellow-green sputum elevated WBC, left shift, no bands - could be due to steroids Azithromycin 250 mg PO daily Phenergen prn cough Leukocytosis WBC 19.7 from 13.9 from 20.4 on admission Left shift, 2 bands on admisison, 0 bands today Azithromycin 250 mg PO daily Diabetes Mellitus (Type 2) Admittedly non-compliant - has not taken Januvia for one year Regular Insulin sliding scale SC Accuchecks HbA1c - 6.3 Crestor 5 mg PO HS Hx of HTN (hypertension) Since Gastric Bypass has not taken meds Normotensive Monitor Hx of Hypothyroid Pt admits non-compliance TSH 0.63 T4 - 0.63 T3 - 1.07 Will ask patient about previous thyroid meds, will consider medical therapy Hypercholesterolemia Pt not taking meds LDL 138, HDL 67, Tchol 220, Trig 112 Crestor 5 mg PO HS Hx gastric bypass for obesity Gastric bypass (2003) Denies taking MV/supplementation Fe 25, TIBC 407, %sat 6, Michael 8.7 Ferrous sulfate 325 mg PO BID Vit B12 562 Folate 10.4 Vit D 14 - With give 50,000 U Vit D weekly first dose (03/10) Anemia Hgb: 10.5 on admission see above monitor Anxiety Alprazolam 1mg PO TID Hx of KEM No hx of bipap Smoker 1ppd x 20 yrs, 1/2 ppd x 3 yrs Pt refusing nicotine patch Prophylaxis B/L SCD Pepcid 20mg PO BID heparin 5000 u SC Q12H <Mk Villanueva H - Last Filed: 03/11/17 14:59> Objective - Vital Signs/Intake and Output Vital Signs (last 24 hours): Temp Pulse Resp BP Pulse Ox 98 F 92 H 20 138/90 97 03/11/17 07:43 03/11/17 07:43 03/11/17 07:43 03/11/17 07:43 03/11/17 07:43 - Medications Medications: Current Medications Albuterol/Ipratropium (Duoneb 3 Mg/0.5 Mg (3 Ml) Ud) 3 ml INH RQ3 [facility] Last Admin: 03/11/17 11:05 Dose: 3 ml Alprazolam (Xanax) 1 mg PO TID [facility] Last Admin: 03/11/17 13:43 Dose: 1 mg Ascorbic Acid (Vitamin C 250 Mg Tab) 250 mg PO DAILY [facility] Last Admin: 03/11/17 10:29 Dose: 250 mg Azithromycin (Zithromax) 250 mg PO DAILY [facility] Last Admin: 03/11/17 10:29 Dose: 250 mg Ergocalciferol (Drisdol 50,000 Intl Units Cap) 1 cap PO Q7D [facility] Last Admin: 03/10/17 12:21 Dose: 1 cap Famotidine (Pepcid) 20 mg PO BID [facility] Last Admin: 03/11/17 10:29 Dose: 20 mg Ferrous Sulfate (Feosol) 325 mg PO BID [facility] Last Admin: 03/11/17 10:29 Dose: 325 mg Heparin Sodium (Porcine) (Heparin) 5,000 units SC Q12 [facility] Last Admin: 03/11/17 10:30 Dose: 5,000 units Insulin Human Regular (Novolin R) 0 unit SC ACHS [facility] PRN Reason: Protocol Last Admin: 03/11/17 12:31 Dose: 4 unit Methylprednisolone (Solu-Medrol) 40 mg IVP Q12 [facility] Last Admin: 03/11/17 10:30 Dose: 40 mg Montelukast Sodium (Singulair) 10 mg PO HS [facility] Last Admin: 03/10/17 21:48 Dose: 10 mg Oxycodone/Acetaminophen (Percocet 5/325 Mg Tab) 1 tab PO Q4 PRN PRN Reason: Pain, moderate (4-7) Stop: 03/14/17 16:01 Last Admin: 03/11/17 13:43 Dose: 1 tab Promethazine HCl (Phenergan Syrup) 12.5 mg PO Q6 PRN PRN Reason: Cough Last Admin: 03/11/17 10:28 Dose: 12.5 mg Rosuvastatin Calcium (Crestor) 5 mg PO HS [facility] Last Admin: 03/10/17 21:48 Dose: 5 mg Fluticasone/Salmeterol (Advair Diskus 500/50) 1 puff INH RQ12 [facility] Last Admin: 03/11/17 10:46 Dose: 1 puff Attending/Attestation - Attestation I have personally seen and examined this patient.: Yes I have fully participated in the care of the patient.: Yes I have reviewed all pertinent clinical information, including history, physical exam and plan: Yes Notes (Text): 03/11/17 14:52 Medical attending: Patient was seen and examined by me, agrees the above note by medical physiologist. Something new that I did not know about yesterday that the patient today was that she takes large amounts of OxyContin 30 mg tablets several times a day and she was worried that without the pain medication she did go into withdrawal. I explained to the patient very frankly that it is not good that she is taking narcotics on top of being in the hospital for what appears to be an asthma exacerbation. I explained to her that we will not be giving her 30 mg tablets of OxyContin but we will be providing Percocet in place of that. In the meantime her to continue to monitor the patient's respiratory status. At bedside today we did a random peak flow and it was about 210 which was an improvement from before. In the meantime she remains on IV Solu-Medrol, long- acting inhalers, short acting inhalers, and Singulair Thank you very much, Mk Villanueva
[2017-03-11] MEDS: Oxycodone/Acetaminophen 5/325 mg Tab PO PRN ×2 (13:43→18:16)
[2017-03-11 20:56] LABS: URINE BACTERIA OCC (<OCC); URINE BILIRUBIN NEGATIVE (NEGATIVE); URINE BLOOD NEGATIVE (NEGATIVE); URINE COLOR Yellow (YELLOW); URINE GLUCOSE (UA) NORMAL (Normal); URINE KETONE NEGATIVE (NEGATIVE); URINE LEUKOCYTE ESTERASE NEG Leu/uL (Negative); URINE PROTEIN NEGATIVE (NEGATIVE); URINE UROBILINOGEN NORMAL mg/dL (0.2-1.0); WBC URINE < 1 /hpf (0-5)
[2017-03-12] MEDS: Oxycodone/Acetaminophen 5/325 mg Tab PO PRN ×5 (00:07→18:32)
[2017-03-12] MEDS: Albuterol-Ipratrop 3 mg / 0.5 (3 ml) UD INH SCH ×9 (00:40→20:18)
[2017-03-12 08:23] LABS: HEMATOCRIT 35.5 % (34.0-47.0); LYMPH # 3.1 K/uL (1.0-4.3); LYMPH % 18.7 % (20.0-40.0); MEAN CELL VOLUME 85.1 fL (81.0-99.0); MEAN CORPUSCULAR HEMOGLOBIN 27.6 pg (27.0-31.0); MEAN CORPUSCULAR HGB CONC 32.4 g/dL (33.0-37.0); MEAN PLATELET VOLUME 7.3 fL (7.2-11.7); MONO # 0.7 K/uL (0.0-0.8); MONO % 4.2 % (0.0-10.0); RED CELL DISTRIBUTION WIDTH 17.6 % (11.5-14.5); WHITE BLOOD COUNT 16.5 K/uL (4.8-10.8)
[2017-03-12] MEDS: (Novolin R) Insulin Human Regular 100 units/ml vial SC SCH ×4 (08:34→21:51)
[2017-03-12 08:40] LABS: CHLORIDE 98 mmol/L (98-107); POTASSIUM 4.2 mmol/L (3.6-5.2); SODIUM 135 mmol/L (132-148)
[2017-03-12 08:42] LABS: BILIRUBIN,TOTAL 0.6 mg/dL (0.2-1.3); GFR AFRICAN-AMERICAN > 60
[2017-03-12 08:43] LABS: ALB/GLOB RATIO 1.4 (1.0-2.1); ALKALINE PHOSPHATASE 105 U/L (38-126); ALT/SGPT 50 U/L (9-52); AST/SGOT 49 U/L (14-36); BLOOD UREA NITROGEN 15 mg/dL (7-17); CALCIUM 8.6 mg/dl (8.6-10.4); CARBON DIOXIDE 25 mmol/L (22-30); GLUCOSE,RANDOM 158 mg/dL (65-105); PHOSPHOROUS 3.7 mg/dL (2.5-4.5)
[2017-03-12 08:44] LABS: MAGNESIUM 1.9 mg/dL (1.6-2.3)
[2017-03-12] MEDS: MethylPREDNISolone 40 mg Vial IVP SCH ×2 (10:06→21:41)
[2017-03-12] MEDS: Promethazine 12.5 mg/10 ml Syrup PO PRN (10:12)
[2017-03-12] MEDS: Fluticasone-Salmeterol 500-50mcg Diskus INH SCH ×2 (10:32→20:18)
--- NOTE | 2017-03-12 18:14 | CP.PCM.PN ---
<TetoRayna - Last Filed: 03/12/17 18:14> Subjective - Date & Time of Evaluation Date of Evaluation: 03/12/17 Time of Evaluation: 09:30 - Subjective Subjective: PGY1 Medicine note for Dr. Villanueva Patient seen and examined at bedside this morning. She admits to being SOB with exertion and wheezing and coughing. She denies fever/chills but admits to chest tightness. Patient denied headache, dizziness, abd pain, nausea, vomiting, bowel /bladder complaints. She was complaining of left sided back pain for which she reports getting oxycodone from a pain management doctor. Objective - Vital Signs/Intake and Output Vital Signs (last 24 hours): Temp Pulse Resp BP Pulse Ox 97.9 F 100 H 20 115/78 95 03/12/17 16:00 03/12/17 16:00 03/12/17 16:00 03/12/17 16:00 03/12/17 16:00 Intake and Output: 03/12/17 03/12/17 06:59 18:59 Intake Total 500 240 Output Total 700 Balance -200 240 - Medications Medications: Current Medications Albuterol/Ipratropium (Duoneb 3 Mg/0.5 Mg (3 Ml) Ud) 3 ml INH RQ3 [facility] Last Admin: 03/12/17 18:04 Dose: 3 ml Alprazolam (Xanax) 1 mg PO TID [facility] Last Admin: 03/12/17 17:16 Dose: 1 mg Ascorbic Acid (Vitamin C 250 Mg Tab) 250 mg PO DAILY [facility] Last Admin: 03/12/17 10:06 Dose: 250 mg Azithromycin (Zithromax) 250 mg PO DAILY [facility] Last Admin: 03/12/17 10:05 Dose: 250 mg Ergocalciferol (Drisdol 50,000 Intl Units Cap) 1 cap PO Q7D [facility] Last Admin: 03/10/17 12:21 Dose: 1 cap Famotidine (Pepcid) 20 mg PO BID [facility] Last Admin: 03/12/17 17:16 Dose: 20 mg Ferrous Sulfate (Feosol) 325 mg PO BID [facility] Last Admin: 03/12/17 17:16 Dose: 325 mg Guaifenesin (Robitussin) 100 mg PO Q4H PRN PRN Reason: Cough Heparin Sodium (Porcine) (Heparin) 5,000 units SC Q12 [facility] Last Admin: 03/12/17 10:06 Dose: 5,000 units Insulin Human Regular (Novolin R) 0 unit SC ACHS [facility] PRN Reason: Protocol Last Admin: 03/12/17 17:17 Dose: 3 unit Methylprednisolone (Solu-Medrol) 40 mg IVP Q12 [facility] Last Admin: 03/12/17 10:06 Dose: 40 mg Montelukast Sodium (Singulair) 10 mg PO [facility] Last Admin: 03/11/17 21:46 Dose: 10 mg Oxycodone/Acetaminophen (Percocet 5/325 Mg Tab) 1 tab PO Q4 PRN PRN Reason: Pain, moderate (4-7) Stop: 03/14/17 16:01 Last Admin: 03/12/17 14:51 Dose: 1 tab Rosuvastatin Calcium (Crestor) 5 mg PO [facility] Last Admin: 03/11/17 21:46 Dose: 5 mg Fluticasone/Salmeterol (Advair Diskus 500/50) 1 puff INH RQ12 [facility] Last Admin: 03/12/17 10:32 Dose: 1 puff - Labs Labs: 03/12/17 08:15 03/12/17 08:15 - Constitutional Appears: Non-toxic, No Acute Distress - Head Exam Head Exam: ATRAUMATIC, NORMAL INSPECTION, NORMOCEPHALIC - Eye Exam Eye Exam: Normal appearance. absent: Conjunctival injection, Scleral icterus - ENT Exam ENT Exam: Mucous Membranes Moist - Neck Exam Neck Exam: Full ROM, Normal Inspection. absent: Tenderness - Respiratory Exam Respiratory Exam: Prolonged Expiratory Phase, Wheezes, NORMAL BREATHING PATTERN. absent: Accessory Muscle Use, Chest Wall Tenderness, Decreased Breath Sounds, Clear to Ausculation Bilateral, Rales, Rhonchi, Respiratory Distress - Cardiovascular Exam Cardiovascular Exam: REGULAR RHYTHM, RRR, +S1, +S2 - GI/Abdominal Exam GI & Abdominal Exam: Soft, Normal Bowel Sounds. absent: Firm, Guarding, Rigid, Tenderness - Extremities Exam Extremities Exam: Normal Capillary Refill, Normal Inspection. absent: Pedal Edema, Tenderness - Back Exam Back Exam: paraspinal tenderness. absent: CVA tenderness (L), CVA tenderness (R ) - Neurological Exam Neurological Exam: Alert, Awake, Oriented x3 - Psychiatric Exam Psychiatric exam: Normal Affect, Normal Mood - Skin Skin Exam: Dry, Intact, Normal Color, Warm Assessment and Plan - Assessment and Plan (Free Text) Assessment: 36 y/o female with PMHx of asthma, anxiety, HTN, T2DM, hyperlipidemia, gastritis, KEM, hypothyroid presents to ED with complaints of productive cough, nasal congestion and wheezing with worsening for x3 days. Plan: Asthma Exacerbation Observation on Med-surg Moderate persistent Asthma Never intubated, multiple ED/hospitalizations - latest [place] 02/09/17, called back for opacity on X-ray but did not follow PCXR (03/09/17): left nodular densities at left lung base O2 2L prn Duoneb Q4H [facility] Advair 500/50 INh RQ12 Solu-medrol 40mg IV [id number] Singulair 10 mg po hs Peak flow 200, was 120 yesterday, improving CT - Circumscribed sclerotic focus in the anterior end of the left 6th rib most likely a bone island, accounts for nodular opacity on chest radiograph. Postsurgical changes. Mural thickening of the distal esophagus. Consider endoscopy. Multifocal small ill-defined areas of groundglass opacity in both lungs. nonspecific. Consider infectious or inflammatory etiology. Follow up with noncontrast CT exam is advised. f/u am labs Cough yellow-green sputum elevated WBC, left shift, no bands - could be due to steroids Azithromycin 250 mg PO daily Phenergen prn cough Leukocytosis WBC 19.7 from 13.9 from 20.4 on admission Left shift, 2 bands on admisison, 0 bands today Azithromycin 250 mg PO daily Diabetes Mellitus (Type 2) Admittedly non-compliant - has not taken Januvia for one year Regular Insulin sliding scale SC Accuchecks HbA1c - 6.3 Crestor 5 mg PO HS Hx of HTN (hypertension) Since Gastric Bypass has not taken meds Normotensive Monitor Hx of Hypothyroid Pt admits non-compliance TSH 0.63 T4 - 0.63 T3 - 1.07 Will ask patient about previous thyroid meds, will consider medical therapy Hypercholesterolemia Pt not taking meds LDL 138, HDL 67, Tchol 220, Trig 112 Crestor 5 mg PO HS Hx gastric bypass for obesity Gastric bypass (2003) Denies taking MV/supplementation Fe 25, TIBC 407, %sat 6, Michael 8.7 Ferrous sulfate 325 mg PO BID Vit B12 562 Folate 10.4 Vit D 14 - With give 50,000 U Vit D weekly first dose (03/10) Anemia Hgb: 10.5 on admission see above monitor Anxiety Alprazolam 1mg PO TID Hx of KEM No hx of bipap Smoker 1ppd x 20 yrs, 1/2 ppd x 3 yrs Pt refusing nicotine patch Prophylaxis B/L SCD Pepcid 20mg PO BID heparin 5000 u SC Q12H Plan discussed with Dr Kay Irene PGY1 <Mk Villanueva H - Last Filed: 03/13/17 07:11> Objective - Vital Signs/Intake and Output Vital Signs (last 24 hours): Temp Pulse Resp BP Pulse Ox 98 F 86 18 130/88 97 03/13/17 00:07 03/13/17 00:07 03/13/17 00:07 03/13/17 00:07 03/13/17 00:07 Intake and Output: 03/13/17 03/13/17 06:59 18:59 Intake Total 500 Balance 500 - Medications Medications: Current Medications Albuterol/Ipratropium (Duoneb 3 Mg/0.5 Mg (3 Ml) Ud) 3 ml INH RQ3 [facility] Last Admin: 03/13/17 05:45 Dose: 3 ml Alprazolam (Xanax) 1 mg PO TID [facility] Last Admin: 03/12/17 17:16 Dose: 1 mg Ascorbic Acid (Vitamin C 250 Mg Tab) 250 mg PO DAILY [facility] Last Admin: 03/12/17 10:06 Dose: 250 mg Azithromycin (Zithromax) 250 mg PO DAILY [facility] Last Admin: 03/12/17 10:05 Dose: 250 mg Ergocalciferol (Drisdol 50,000 Intl Units Cap) 1 cap PO Q7D [facility] Last Admin: 03/10/17 12:21 Dose: 1 cap Famotidine (Pepcid) 20 mg PO BID [facility] Last Admin: 03/12/17 17:16 Dose: 20 mg Ferrous Sulfate (Feosol) 325 mg PO BID [facility] Last Admin: 03/12/17 17:16 Dose: 325 mg Guaifenesin (Robitussin) 100 mg PO Q4H PRN PRN Reason: Cough Last Admin: 03/13/17 06:35 Dose: 100 mg Heparin Sodium (Porcine) (Heparin) 5,000 units SC Q12 [facility] Last Admin: 03/12/17 21:41 Dose: 5,000 units Insulin Human Regular (Novolin R) 0 unit SC ACHS [facility] PRN Reason: Protocol Last Admin: 03/12/17 21:51 Dose: Not Given Methylprednisolone (Solu-Medrol) 40 mg IVP Q12 [facility] Last Admin: 03/12/17 21:41 Dose: 40 mg Montelukast Sodium (Singulair) 10 mg PO HS [facility] Last Admin: 03/12/17 21:41 Dose: 10 mg Oxycodone/Acetaminophen (Percocet 5/325 Mg Tab) 1 tab PO Q4 PRN PRN Reason: Pain, moderate (4-7) Stop: 03/14/17 16:01 Last Admin: 03/13/17 06:30 Dose: 1 tab Rosuvastatin Calcium (Crestor) 5 mg PO [facility] Last Admin: 03/12/17 21:41 Dose: 5 mg Fluticasone/Salmeterol (Advair Diskus 500/50) 1 puff INH RQ12 [facility] Last Admin: 03/12/17 20:18 Dose: 1 puff - Labs Labs: 03/12/17 08:15 03/12/17 08:15 Attending/Attestation - Attestation I have personally seen and examined this patient.: Yes I have fully participated in the care of the patient.: Yes I have reviewed all pertinent clinical information, including history, physical exam and plan: Yes
[2017-03-12] MEDS: guaiFENesin 100 mg/5 ml Syrup UD PO PRN (18:32)
[2017-03-13] MEDS: Albuterol-Ipratrop 3 mg / 0.5 (3 ml) UD INH SCH ×9 (01:07→23:33)
[2017-03-13] MEDS: Oxycodone/Acetaminophen 5/325 mg Tab PO PRN ×5 (01:15→21:17)
[2017-03-13] MEDS: guaiFENesin 100 mg/5 ml Syrup UD PO PRN ×2 (01:19→06:35)
[2017-03-13 08:19] VITALS: RESP 20
[2017-03-13] MEDS: (Novolin R) Insulin Human Regular 100 units/ml vial SC SCH ×4 (08:32→21:40)
[2017-03-13 08:33] LABS: BASO # 0.1 K/uL (0.0-0.2); BASO % 0.5 % (0.0-2.0); HEMATOCRIT 35.1 % (34.0-47.0); LYMPH # 2.8 K/uL (1.0-4.3); LYMPH % 20.8 % (20.0-40.0); MEAN CORPUSCULAR HEMOGLOBIN 27.4 pg (27.0-31.0); MEAN CORPUSCULAR HGB CONC 32.3 g/dL (33.0-37.0); MEAN PLATELET VOLUME 7.6 fL (7.2-11.7); MONO # 0.8 K/uL (0.0-0.8); MONO % 5.6 % (0.0-10.0); NRBC % 0.2 % (0.0-2.0); RED CELL DISTRIBUTION WIDTH 17.9 % (11.5-14.5); WHITE BLOOD COUNT 13.7 K/uL (4.8-10.8)
[2017-03-13] MEDS: Fluticasone-Salmeterol 500-50mcg Diskus INH SCH ×2 (08:50→20:14)
[2017-03-13 08:51] LABS: CHLORIDE 97 mmol/L (98-107); POTASSIUM 3.9 mmol/L (3.6-5.2); SODIUM 135 mmol/L (132-148)
[2017-03-13 08:53] LABS: BILIRUBIN,TOTAL 0.6 mg/dL (0.2-1.3); GFR AFRICAN-AMERICAN > 60
[2017-03-13 08:54] LABS: ALB/GLOB RATIO 1.4 (1.0-2.1); ALKALINE PHOSPHATASE 99 U/L (38-126); ALT/SGPT 91 U/L (9-52); AST/SGOT 63 U/L (14-36); BLOOD UREA NITROGEN 14 mg/dL (7-17); CARBON DIOXIDE 27 mmol/L (22-30); GLUCOSE,RANDOM 177 mg/dL (65-105); PHOSPHOROUS 3.7 mg/dL (2.5-4.5); TOTAL PROTEIN 6.8 g/dL (6.3-8.3)
[2017-03-13 08:55] LABS: CALCIUM 8.4 mg/dl (8.6-10.4); MAGNESIUM 2.3 mg/dL (1.6-2.3)
[2017-03-13] MEDS: MethylPREDNISolone 40 mg Vial IVP SCH ×2 (09:30→21:26)
--- NOTE | 2017-03-13 16:39 | US ---
HISTORY: RUQ PAIN COMPARISON: CT abdomen and pelvis 09/09/2015 TECHNIQUE: Sonographic evaluation of the abdomen. FINDINGS: LIVER: Liver demonstrates mild increased echogenicity, likely representing hepatic parenchymal disease or fatty infiltration. This limits evaluation for small masses. No focal large liver mass is identified. No intrahepatic biliary ductal dilatation is identified. Portal vein is patent with normal hepatopetal flow. GALLBLADDER: The gallbladder is physiologically distended. No gallstones or gallbladder wall thickening is identified. Trace pericholecystic fluid noted. No sonographic Diaz's sign was appreciated during the exam. COMMON BILE DUCT: Normal in caliber measuring 0.2 cm. PANCREAS: Not visualized due to overlying bowel gas. RIGHT KIDNEY: Measures 9.4cm. Unremarkable in echogenicity. No shadowing renal stone, cyst, or hydronephrosis is identified AORTA: No aneurysmal dilatation of the visualized portions. IVC: Visualized portions are unremarkable.. OTHER FINDINGS: None. IMPRESSION: Mildly Echogenic liver, likely representing fatty infiltration or hepatic parenchymal disease. Trace pericholecystic fluid .
--- NOTE | 2017-03-13 19:32 | CP.PCM.PN ---
<Christopher Moise - Last Filed: 03/13/17 19:29> Subjective - Date & Time of Evaluation Date of Evaluation: 03/13/17 Time of Evaluation: 16:00 - Subjective Subjective: Medicine Note- Hospitalist Service Patient was seen and examined at bedside. Patient reports that her breathing is better than when was first admitted, but is not at baseline yet. She still reports some dyspnea. Patient appears comfortable off of nasal cannula. No events overnight, per nursing. Objective - Vital Signs/Intake and Output Vital Signs (last 24 hours): Temp Pulse Resp BP Pulse Ox 98.1 F 119 H 20 135/93 H 95 03/13/17 08:18 03/13/17 08:18 03/13/17 08:18 03/13/17 08:18 03/13/17 08:18 Intake and Output: 03/13/17 03/14/17 18:59 06:59 Intake Total 300 Output Total 600 Balance -300 - Medications Medications: Current Medications Albuterol/Ipratropium (Duoneb 3 Mg/0.5 Mg (3 Ml) Ud) 3 ml INH RQ3 [facility] Last Admin: 03/13/17 15:48 Dose: Not Given Alprazolam (Xanax) 1 mg PO TID [facility] Last Admin: 03/13/17 13:52 Dose: 1 mg Ascorbic Acid (Vitamin C 250 Mg Tab) 250 mg PO DAILY [facility] Last Admin: 03/13/17 09:28 Dose: 250 mg Azithromycin (Zithromax) 250 mg PO DAILY [facility] Last Admin: 03/13/17 09:28 Dose: 250 mg Docusate Sodium (Colace) 100 mg PO BID [facility] Ergocalciferol (Drisdol 50,000 Intl Units Cap) 1 cap PO Q7D [facility] Last Admin: 03/10/17 12:21 Dose: 1 cap Famotidine (Pepcid) 20 mg PO BID [facility] Last Admin: 03/13/17 09:28 Dose: 20 mg Ferrous Sulfate (Feosol) 325 mg PO BID [facility] Last Admin: 03/13/17 09:28 Dose: 325 mg Guaifenesin (Robitussin) 100 mg PO Q4H PRN PRN Reason: Cough Last Admin: 03/13/17 06:35 Dose: 100 mg Insulin Human Regular (Novolin R) 0 unit SC ACHS [facility] PRN Reason: Protocol Last Admin: 03/13/17 17:51 Dose: 8 unit Methylprednisolone (Solu-Medrol) 40 mg IVP Q12 [facility] Last Admin: 03/13/17 09:30 Dose: 40 mg Montelukast Sodium (Singulair) 10 mg PO HS [facility] Last Admin: 03/12/17 21:41 Dose: 10 mg Oxycodone/Acetaminophen (Percocet 5/325 Mg Tab) 1 tab PO Q4 PRN PRN Reason: Pain, moderate (4-7) Stop: 03/14/17 16:01 Last Admin: 03/13/17 15:56 Dose: 1 tab Rosuvastatin Calcium (Crestor) 5 mg PO [facility] Last Admin: 03/12/17 21:41 Dose: 5 mg Fluticasone/Salmeterol (Advair Diskus 500/50) 1 puff INH RQ12 [facility] Last Admin: 03/13/17 08:50 Dose: 1 puff - Labs Labs: 03/13/17 08:26 03/13/17 08:26 - Constitutional Appears: Non-toxic, No Acute Distress - Head Exam Head Exam: ATRAUMATIC, NORMAL INSPECTION, NORMOCEPHALIC - Eye Exam Pupil Exam: NORMAL ACCOMODATION, PERRL - ENT Exam ENT Exam: Mucous Membranes Moist - Respiratory Exam Respiratory Exam: Clear to Ausculation Bilateral, NORMAL BREATHING PATTERN. absent: Prolonged Expiratory Phase, Rales, Rhonchi, Wheezes - Cardiovascular Exam Cardiovascular Exam: REGULAR RHYTHM, +S1, +S2 - GI/Abdominal Exam GI & Abdominal Exam: Soft, Tenderness (RUQ tenderness), Normal Bowel Sounds. absent: Diminished Bowel Sounds, Hernia, Hyperactive Bowel Sounds, Hypoactive Bowel Sounds - Extremities Exam Extremities Exam: Normal Capillary Refill, Normal Inspection - Neurological Exam Neurological Exam: Alert, Awake, Oriented x3 - Psychiatric Exam Psychiatric exam: Normal Affect, Normal Mood - Skin Skin Exam: Dry, Intact, Normal Color, Warm Assessment and Plan - Assessment and Plan (Free Text) Assessment: Asthma Exacerbation Observation on Med-surg Moderate persistent Asthma Never intubated, multiple ED/hospitalizations - latest [place] 02/09/17, called back for opacity on X-ray but did not follow PCXR (03/09/17): left nodular densities at left lung base O2 2L prn Duoneb Q4H [facility] Advair 500/50 INh RQ12 Solu-medrol 40mg IV [id number] Singulair 10 mg po hs Peak flow 200, was 120 yesterday, improving CT - Circumscribed sclerotic focus in the anterior end of the left 6th rib most likely a bone island, accounts for nodular opacity on chest radiograph. Postsurgical changes. Mural thickening of the distal esophagus. Consider endoscopy. Multifocal small ill-defined areas of groundglass opacity in both lungs. nonspecific. Consider infectious or inflammatory etiology. Follow up with noncontrast CT exam is advised. f/u am labs Cough yellow-green sputum elevated WBC, left shift, no bands - could be due to steroids Azithromycin 250 mg PO daily Phenergen prn cough Leukocytosis WBC 19.7 from 13.9 from 20.4 on admission Left shift, 2 bands on admisison, 0 bands today Azithromycin 250 mg PO daily Diabetes Mellitus (Type 2) Admittedly non-compliant - has not taken Januvia for one year Regular Insulin sliding scale SC Accuchecks HbA1c - 6.3 Crestor 5 mg PO HS Hx of HTN (hypertension) Since Gastric Bypass has not taken meds Normotensive Monitor Hx of Hypothyroid Pt admits non-compliance TSH 0.63 T4 - 0.63 T3 - 1.07 Will ask patient about previous thyroid meds, will consider medical therapy Hypercholesterolemia Pt not taking meds LDL 138, HDL 67, Tchol 220, Trig 112 Crestor 5 mg PO HS Hx gastric bypass for obesity Gastric bypass (2003) Denies taking MV/supplementation Fe 25, TIBC 407, %sat 6, Michael 8.7 Ferrous sulfate 325 mg PO BID Vit B12 562 Folate 10.4 Vit D 14 - With give 50,000 U Vit D weekly first dose (03/10) Anemia Hgb: 11.3 on admission see above monitor Anxiety Alprazolam 1mg PO TID Hx of KEM No hx of bipap Smoker 1ppd x 20 yrs, 1/2 ppd x 3 yrs Pt refusing nicotine patch RUQ pain Abdominal Ultrasound- Mildly echogenic liver, likely fatty infiltration or hepatic parenchymal disease. trace pericholecystic fluid. Prophylaxis B/L SCD Pepcid 20mg PO BID heparin 5000 u SC Q12H <Mk Villanueva - Last Filed: 03/14/17 07:41> Objective - Vital Signs/Intake and Output Vital Signs (last 24 hours): Temp Pulse Resp BP Pulse Ox 98.3 F 86 20 117/81 96 03/13/17 23:56 03/13/17 23:56 03/13/17 23:56 03/13/17 23:56 03/13/17 23:56 Intake and Output: 03/14/17 03/14/17 06:59 18:59 Intake Total 550 Output Total 700 Balance -150 - Medications Medications: Current Medications Albuterol/Ipratropium (Duoneb 3 Mg/0.5 Mg (3 Ml) Ud) 3 ml INH RQ3 [facility] Last Admin: 03/14/17 05:04 Dose: 3 ml Alprazolam (Xanax) 1 mg PO TID [facility] Last Admin: 03/13/17 21:17 Dose: 1 mg Ascorbic Acid (Vitamin C 250 Mg Tab) 250 mg PO DAILY [facility] Last Admin: 03/13/17 09:28 Dose: 250 mg Azithromycin (Zithromax) 250 mg PO DAILY [facility] Last Admin: 03/13/17 09:28 Dose: 250 mg Docusate Sodium (Colace) 100 mg PO BID [facility] Last Admin: 03/13/17 21:17 Dose: 100 mg Ergocalciferol (Drisdol 50,000 Intl Units Cap) 1 cap PO Q7D [facility] Last Admin: 03/10/17 12:21 Dose: 1 cap Famotidine (Pepcid) 20 mg PO BID [facility] Last Admin: 03/13/17 21:19 Dose: 20 mg Ferrous Sulfate (Feosol) 325 mg PO BID [facility] Last Admin: 03/13/17 21:18 Dose: 325 mg Guaifenesin (Robitussin) 100 mg PO Q4H PRN PRN Reason: Cough Last Admin: 03/13/17 06:35 Dose: 100 mg Insulin Human Regular (Novolin R) 0 unit SC ACHS [facility] PRN Reason: Protocol Last Admin: 03/13/17 21:40 Dose: Not Given Methylprednisolone (Solu-Medrol) 40 mg IVP Q12 [facility] Last Admin: 03/13/17 21:26 Dose: 40 mg Montelukast Sodium (Singulair) 10 mg PO HS [facility] Last Admin: 03/13/17 21:26 Dose: 10 mg Oxycodone/Acetaminophen (Percocet 5/325 Mg Tab) 1 tab PO Q4 PRN PRN Reason: Pain, moderate (4-7) Stop: 03/14/17 16:01 Last Admin: 03/14/17 02:43 Dose: 1 tab Rosuvastatin Calcium (Crestor) 5 mg PO HS [facility] Last Admin: 03/12/17 21:41 Dose: 5 mg Fluticasone/Salmeterol (Advair Diskus 500/50) 1 puff INH RQ12 [facility] Last Admin: 03/13/17 20:14 Dose: 1 puff - Labs Labs: 03/13/17 08:26 03/13/17 08:26 Attending/Attestation - Attestation I have personally seen and examined this patient.: Yes I have fully participated in the care of the patient.: Yes I have reviewed all pertinent clinical information, including history, physical exam and plan: Yes Notes (Text): Medical Attenidng: Patient was seen and examnined by me as well. Agree with the above note by the resident. At this time continue with the solumedrol IV as well as breathing treatments. The random peakflows when we see her show 200 to 220, better than before. She still has wheezing, she reports it seems easier to breath now thank you Mk Villanueva
[2017-03-14] MEDS: Albuterol-Ipratrop 3 mg / 0.5 (3 ml) UD INH SCH ×8 (02:17→23:39)
[2017-03-14] MEDS: Oxycodone/Acetaminophen 5/325 mg Tab PO PRN ×5 (02:43→21:01)
[2017-03-14] MEDS: guaiFENesin 100 mg/5 ml Syrup UD PO PRN ×2 (07:52→12:14)
[2017-03-14] MEDS: (Novolin R) Insulin Human Regular 100 units/ml vial SC SCH ×4 (07:54→21:31)
[2017-03-14] MEDS: Acetylcysteine 20% Inhal Soln (4ml) INH SCH ×2 (09:50→20:38)
[2017-03-14] MEDS: Fluticasone-Salmeterol 500-50mcg Diskus INH SCH ×2 (09:50→20:38)
--- NOTE | 2017-03-14 10:12 | CP.PCM.PN ---
<Jose MariaChristopher - Last Filed: 03/14/17 10:10> Subjective - Date & Time of Evaluation Date of Evaluation: 03/14/17 Time of Evaluation: 10:00 - Subjective Subjective: Medicine Note- Hospitalist Service Patient was seen and examined at bedside. Patient reports no acute complaints at this time. She says her breathing continues to improve. She was able to walk up to the nurse's station yesterday, but then started getting short of breath and tired and stopped, where as previously she was barely able to make it to the bathroom. Tolerating PO intake, moving bowels normally. No events overnight , per nursing. Objective - Vital Signs/Intake and Output Vital Signs (last 24 hours): Temp Pulse Resp BP Pulse Ox 98.2 F 117 H 20 109/71 96 03/14/17 07:48 03/14/17 07:48 03/14/17 07:48 03/14/17 07:48 03/14/17 07:48 Intake and Output: 03/14/17 03/14/17 06:59 18:59 Intake Total 550 Output Total 700 Balance -150 - Medications Medications: Current Medications Acetylcysteine (Acetylcysteine 20%) 4 ml INH RQ6 [facility] Albuterol/Ipratropium (Duoneb 3 Mg/0.5 Mg (3 Ml) Ud) 3 ml INH RQ3 [facility] Last Admin: 03/14/17 05:04 Dose: 3 ml Alprazolam (Xanax) 1 mg PO TID [facility] Last Admin: 03/13/17 21:17 Dose: 1 mg Ascorbic Acid (Vitamin C 250 Mg Tab) 250 mg PO DAILY [facility] Last Admin: 03/13/17 09:28 Dose: 250 mg Azithromycin (Zithromax) 250 mg PO DAILY [facility] Last Admin: 03/13/17 09:28 Dose: 250 mg Docusate Sodium (Colace) 100 mg PO BID [facility] Last Admin: 03/13/17 21:17 Dose: 100 mg Ergocalciferol (Drisdol 50,000 Intl Units Cap) 1 cap PO Q7D [facility] Last Admin: 03/10/17 12:21 Dose: 1 cap Famotidine (Pepcid) 20 mg PO BID [facility] Last Admin: 03/13/17 21:19 Dose: 20 mg Ferrous Sulfate (Feosol) 325 mg PO BID [facility] Last Admin: 03/13/17 21:18 Dose: 325 mg Guaifenesin (Robitussin) 100 mg PO Q4H PRN PRN Reason: Cough Last Admin: 03/14/17 07:52 Dose: 100 mg Insulin Human Regular (Novolin R) 0 unit SC ACHS [facility] PRN Reason: Protocol Last Admin: 03/14/17 07:54 Dose: Not Given Methylprednisolone (Solu-Medrol) 40 mg IVP Q12 [facility] Last Admin: 03/13/17 21:26 Dose: 40 mg Montelukast Sodium (Singulair) 10 mg PO [facility] Last Admin: 03/13/17 21:26 Dose: 10 mg Oxycodone/Acetaminophen (Percocet 5/325 Mg Tab) 1 tab PO Q4 PRN PRN Reason: Pain, moderate (4-7) Stop: 03/14/17 16:01 Last Admin: 03/14/17 07:51 Dose: 1 tab Rosuvastatin Calcium (Crestor) 5 mg PO [facility] Last Admin: 03/12/17 21:41 Dose: 5 mg Fluticasone/Salmeterol (Advair Diskus 500/50) 1 puff INH RQ12 [facility] Last Admin: 03/13/17 20:14 Dose: 1 puff - Labs Labs: 03/13/17 08:26 03/13/17 08:26 - Constitutional Appears: Non-toxic, No Acute Distress - Head Exam Head Exam: ATRAUMATIC, NORMAL INSPECTION, NORMOCEPHALIC - Eye Exam Pupil Exam: NORMAL ACCOMODATION, PERRL - ENT Exam ENT Exam: Mucous Membranes Moist - Respiratory Exam Respiratory Exam: Wheezes, NORMAL BREATHING PATTERN - Cardiovascular Exam Cardiovascular Exam: REGULAR RHYTHM, +S1, +S2 - GI/Abdominal Exam GI & Abdominal Exam: Soft, Normal Bowel Sounds. absent: Tenderness, Diminished Bowel Sounds, Hernia, Hypoactive Bowel Sounds, Pulsatile Mass - Extremities Exam Extremities Exam: Normal Capillary Refill, Normal Inspection - Neurological Exam Neurological Exam: Alert, Awake, Oriented x3 - Psychiatric Exam Psychiatric exam: Normal Affect, Normal Mood - Skin Skin Exam: Dry, Intact, Normal Color, Warm Assessment and Plan - Assessment and Plan (Free Text) Assessment: Asthma Exacerbation Moderate persistent Asthma WBC 13.7- trending down Never intubated, multiple ED/hospitalizations - latest [place] 02/09/17, called back for opacity on X-ray but did not follow PCXR (03/09/17): left nodular densities at left lung base O2 2L prn Duoneb Q4H [facility] Advair 500/50 INh RQ12 Solu-medrol 40mg IV [id number] Singulair 10 mg po hs Peak flow 200, was 120 yesterday, improving CT - Circumscribed sclerotic focus in the anterior end of the left 6th rib most likely a bone island, accounts for nodular opacity on chest radiograph. Postsurgical changes. Mural thickening of the distal esophagus. Consider endoscopy. Multifocal small ill-defined areas of groundglass opacity in both lungs. nonspecific. Consider infectious or inflammatory etiology. Follow up with noncontrast CT exam is advised. Cough yellow-green sputum Azithromycin 250 mg PO daily Phenergen prn cough Leukocytosis WBC 13.7- trending down, no left shift Left shift, 2 bands on admisison, 0 bands Azithromycin 250 mg PO daily Diabetes Mellitus (Type 2) Admittedly non-compliant - has not taken Januvia for one year Regular Insulin sliding scale SC Accuchecks HbA1c - 6.3 Crestor 5 mg PO HS Hx of HTN (hypertension) Since Gastric Bypass has not taken meds Normotensive Monitor Hx of Hypothyroid Pt admits non-compliance TSH 0.63 T4 - 0.63 T3 - 1.07 Will ask patient about previous thyroid meds, will consider medical therapy Hypercholesterolemia Pt not taking meds LDL 138, HDL 67, Tchol 220, Trig 112 Crestor 5 mg PO HS Hx gastric bypass for obesity Gastric bypass (2003) Denies taking MV/supplementation Fe 25, TIBC 407, %sat 6, Michael 8.7 Ferrous sulfate 325 mg PO BID Vit B12 562 Folate 10.4 Vit D 14 - With give 50,000 U Vit D weekly first dose (03/10) Anemia Hgb: 11.3 see above monitor Anxiety Alprazolam 1mg PO TID Hx of KEM No hx of bipap Smoker 1ppd x 20 yrs, 1/2 ppd x 3 yrs Pt refusing nicotine patch RUQ pain Abdominal Ultrasound- Mildly echogenic liver, likely fatty infiltration or hepatic parenchymal disease. trace pericholecystic fluid. Pain is resolving. Will monitor for now. Prophylaxis B/L SCD Pepcid 20mg PO BID heparin 5000 u SC Q12H <Villanueva,Peter H - Last Filed: 03/14/17 10:38> Objective - Vital Signs/Intake and Output Vital Signs (last 24 hours): Temp Pulse Resp BP Pulse Ox 98.2 F 117 H 20 109/71 96 03/14/17 07:48 03/14/17 07:48 03/14/17 07:48 03/14/17 07:48 03/14/17 07:48 Intake and Output: 03/14/17 03/14/17 06:59 18:59 Intake Total 550 Output Total 700 Balance -150 - Medications Medications: Current Medications Acetylcysteine (Acetylcysteine 20%) 4 ml INH RQ6 [facility] Albuterol/Ipratropium (Duoneb 3 Mg/0.5 Mg (3 Ml) Ud) 3 ml INH RQ3 [facility] Last Admin: 03/14/17 05:04 Dose: 3 ml Alprazolam (Xanax) 1 mg PO TID [facility] Last Admin: 03/14/17 10:20 Dose: 1 mg Ascorbic Acid (Vitamin C 250 Mg Tab) 250 mg PO DAILY [facility] Last Admin: 03/14/17 10:17 Dose: 250 mg Azithromycin (Zithromax) 250 mg PO DAILY [facility] Last Admin: 03/14/17 10:17 Dose: 250 mg Docusate Sodium (Colace) 100 mg PO BID [facility] Last Admin: 03/14/17 10:17 Dose: 100 mg Ergocalciferol (Drisdol 50,000 Intl Units Cap) 1 cap PO Q7D [facility] Last Admin: 03/14/17 10:17 Dose: 1 cap Famotidine (Pepcid) 20 mg PO BID [facility] Last Admin: 03/14/17 10:17 Dose: 20 mg Ferrous Sulfate (Feosol) 325 mg PO BID [facility] Last Admin: 03/14/17 10:17 Dose: 325 mg Guaifenesin (Robitussin) 100 mg PO Q4H PRN PRN Reason: Cough Last Admin: 03/14/17 07:52 Dose: 100 mg Insulin Human Regular (Novolin R) 0 unit SC [facility] PRN Reason: Protocol Last Admin: 03/14/17 07:54 Dose: Not Given Methylprednisolone (Solu-Medrol) 40 mg IVP Q12 [facility] Last Admin: 03/14/17 10:18 Dose: 40 mg Montelukast Sodium (Singulair) 10 mg PO HS [facility] Last Admin: 03/13/17 21:26 Dose: 10 mg Oxycodone/Acetaminophen (Percocet 5/325 Mg Tab) 1 tab PO Q4 PRN PRN Reason: Pain, moderate (4-7) Stop: 03/14/17 16:01 Last Admin: 03/14/17 07:51 Dose: 1 tab Rosuvastatin Calcium (Crestor) 5 mg PO HS [facility] Last Admin: 03/12/17 21:41 Dose: 5 mg Fluticasone/Salmeterol (Advair Diskus 500/50) 1 puff INH RQ12 [facility] Last Admin: 03/13/17 20:14 Dose: 1 puff - Labs Labs: 03/13/17 08:26 03/13/17 08:26 Attending/Attestation - Attestation I have personally seen and examined this patient.: Yes I have fully participated in the care of the patient.: Yes I have reviewed all pertinent clinical information, including history, physical exam and plan: Yes Notes (Text): 03/14/17 10:35 Medical Attending: Patient was seen and examined by me - agree with the above note by the resident. The patient reports breathing is better - she is still wheezing a lot on exam. She tells us she is walking further. Will add on mucomyst nebuizers as well to see if this helps with the phelgm she reports In the mean time continue solumedrol and inhaled corticosteroids thank you Mk Villanueva
[2017-03-14] MEDS: Ergocalciferol 50,000 Intl Units Cap PO SCH (10:17)
[2017-03-14] MEDS: MethylPREDNISolone 40 mg Vial IVP SCH ×2 (10:18→21:03)
[2017-03-15] MEDS: Oxycodone/Acetaminophen 5/325 mg Tab PO PRN ×3 (01:40→10:37)
[2017-03-15] MEDS: Albuterol-Ipratrop 3 mg / 0.5 (3 ml) UD INH SCH ×4 (02:02→11:21)
[2017-03-15] MEDS: Acetylcysteine 20% Inhal Soln (4ml) INH SCH ×2 (05:16→07:47)
[2017-03-15] MEDS: (Novolin R) Insulin Human Regular 100 units/ml vial SC SCH ×2 (07:56→14:39)
[2017-03-15 08:07] LABS: BASO % 0.1 % (0.0-2.0); EOS % 0.1 % (0.0-4.0); HEMATOCRIT 39.1 % (34.0-47.0); LYMPH # 4.3 K/uL (1.0-4.3); LYMPH % 17.4 % (20.0-40.0); MEAN CORPUSCULAR HEMOGLOBIN 26.7 pg (27.0-31.0); MEAN CORPUSCULAR HGB CONC 31.5 g/dL (33.0-37.0); MEAN PLATELET VOLUME 7.2 fL (7.2-11.7); MONO # 1.3 K/uL (0.0-0.8); MONO % 5.1 % (0.0-10.0); RED CELL DISTRIBUTION WIDTH 17.7 % (11.5-14.5)
[2017-03-15 08:10] LABS: WHITE BLOOD COUNT 24.8 K/uL (4.8-10.8)
[2017-03-15 08:15] LABS: CHLORIDE 94 mmol/L (98-107); POTASSIUM 4.4 mmol/L (3.6-5.2); SODIUM 134 mmol/L (132-148)
[2017-03-15 08:17] LABS: GFR AFRICAN-AMERICAN > 60
[2017-03-15 08:18] VITALS: BP 133/80; PULSE 110; TEMP 98; O2SAT 96
[2017-03-15 08:18] LABS: ALB/GLOB RATIO 1.4 (1.0-2.1); ALKALINE PHOSPHATASE 104 U/L (38-126); ALT/SGPT 89 U/L (9-52); AST/SGOT 32 U/L (14-36); BILIRUBIN,TOTAL 0.7 mg/dL (0.2-1.3); BLOOD UREA NITROGEN 18 mg/dL (7-17); CALCIUM 8.6 mg/dl (8.6-10.4); CARBON DIOXIDE 29 mmol/L (22-30); GLUCOSE,RANDOM 163 mg/dL (65-105); TOTAL PROTEIN 7.2 g/dL (6.3-8.3)
[2017-03-15] MEDS: Fluticasone-Salmeterol 500-50mcg Diskus INH SCH (10:06)
[2017-03-15] MEDS: MethylPREDNISolone 40 mg Vial IVP SCH (10:08)
[2017-03-15] MEDS: guaiFENesin 100 mg/5 ml Syrup UD PO PRN (10:43)
--- NOTE | 2017-03-15 16:30 | CP.PCM.PN ---
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 She admits to multiple hospitalizations/ED visits for asthma exacerbations, the most recent being in [place]. She denies previous intubation, but admits to 'close-call' at [facility] in May of 2016. Patient states she usually has asthma exacerbations with 'weather changes' and during tree pollen allergy season. She admits productive cough with yellow-green sputum for last two days, but denies worsening of cough at night. She reports taking Claritin and Em, and using her nebulizer four times daily without improvement. Wheezing started last night , and was unresponsive to home meds. Patient denies recent sick contacts, recent travel, recent antibiotic use. As above, pt last admission/ED visit was to [place] on 02/09/17, that resulted in discharge with 5 days of Prednisone taper. On that visit pt was called back for xray finding showing 11mm nodular opacity, and radiologist recommended repeat CXR or CT Chest w/o contrast as follow-up. Pt denies having this test performed. She admits non-compliance with diabetes, hypothyroid, or vitamins post-gastric bypass. Denies CP, abd pain, fevers, chills, n/v/d/c, rashes, headache, dizziness, fatigue. During hospital Stay: Patient is stable for discharge home. Patient is to follow up in the [facility] on April 15 at 10:00 AM for post hospital care. She is to take the following medications: Ventolin inhaler as needed every 4 hours for shortness of breath Medrol dose pack - take as instructed on the pack Singulair 10mg one by mouth at bedtime Advair 500/50 one puff every 12 hours Simvastatin 20mg one by mouth at bedtime Vitamin D 26753 U one by mouth weekly - to start on 03/17 Ferrous Sulfate 325mg one by mouth twice a day All prescriptions were sent to the [facility] outpatient pharmacy. Patient is to return to the emergency room if symptoms return. All instructions explained to the patient and she agrees. Objective - Vital Signs/Intake and Output Vital Signs (last 24 hours): Temp Pulse Resp BP Pulse Ox 98.0 F 110 H 20 133/80 96 03/15/17 08:15 03/15/17 08:15 03/15/17 08:15 03/15/17 08:15 03/15/17 08:15 Intake and Output: 03/15/17 03/15/17 06:59 18:59 Intake Total 550 500 Output Total 800 Balance -250 500 - Labs Labs: 03/15/17 07:51 03/15/17 07:51
--- NOTE | 2017-03-15 16:45 | CP.PCM.DIS ---
<BurkeDoretha V - Last Filed: 03/15/17 22:24> Provider - Provider Date of Admission: 03/11/17 14:05 Attending physician: Mk Villanueva DO Hospital Course - Lab Results Lab Results: Most Recent Lab Values WBC 24.8 K/uL (4.8-10.8) H D 03/15/17 07:51 RBC 4.60 Mil/uL (3.80-5.20) 03/15/17 07:51 Hgb 12.3 g/dL (11.0-16.0) 03/15/17 07:51 Hct 39.1 % (34.0-47.0) 03/15/17 07:51 MCV 85.0 fL (81.0-99.0) 03/15/17 07:51 MCH 26.7 pg (27.0-31.0) L 03/15/17 07:51 MCHC 31.5 g/dL (33.0-37.0) L 03/15/17 07:51 RDW 17.7 % (11.5-14.5) H 03/15/17 07:51 Plt Count 446 K/uL (130-400) H 03/15/17 07:51 MPV 7.2 fL (7.2-11.7) 03/15/17 07:51 Neut % (Auto) 77.3 % (50.0-75.0) H 03/15/17 07:51 Lymph % (Auto) 17.4 % (20.0-40.0) L 03/15/17 07:51 Gregory % (Auto) 5.1 % (0.0-10.0) 03/15/17 07:51 Eos % (Auto) 0.1 % (0.0-4.0) 03/15/17 07:51 Baso % (Auto) 0.1 % (0.0-2.0) 03/15/17 07:51 Neut # 19.2 K/uL (1.8-7.0) H 03/15/17 07:51 Lymph # 4.3 K/uL (1.0-4.3) 03/15/17 07:51 Gregory # 1.3 K/uL (0.0-0.8) H 03/15/17 07:51 Eos # 0.0 K/uL (0.0-0.7) 03/15/17 07:51 Baso # 0.0 K/uL (0.0-0.2) 03/15/17 07:51 Neutrophils % (Manual) 94 % (50-75) H 03/11/17 07:37 Band Neutrophils % 2 % (0-2) 03/09/17 18:20 Lymphocytes % (Manual) 5 % (20-40) L 03/11/17 07:37 Monocytes % (Manual) 1 % (0-10) 03/11/17 07:37 Platelet Estimate Normal (NORMAL) 03/11/17 07:37 Polychromasia Slight 03/11/17 07:37 Hypochromasia (manual) Slight 03/11/17 07:37 Poikilocytosis (manual Slight 03/10/17 07:18 Anisocytosis (manual) Slight 03/11/17 07:37 Puncture Site Rra 03/09/17 21:20 pCO2 36 mm/Hg (35-45) 03/09/17 21:20 pO2 94 mm/Hg (80-100) 03/09/17 21:20 HCO3 22.8 mmol/L (21-28) 03/09/17 21:20 ABG pH 7.39 (7.35-7.45) 03/09/17 21:20 ABG Total CO2 22.9 mmol/L (22-28) 03/09/17 21:20 ABG O2 Saturation 95.2 % (95-98) 03/09/17 21:20 ABG Base Excess -2.7 mmol/L (-2.0-3.0) L 03/09/17 21:20 ABG Hemoglobin 10.8 g/dL (11.7-17.4) L 03/09/17 21:20 ABG Carboxyhemoglobin 0 % (0.5-1.5) L 03/09/17 21:20 POC ABG HHb (Measured) 4.8 % (0.0-5.0) 03/09/17 21:20 ABG Methemoglobin 0.3 % (0.0-3.0) 03/09/17 21:20 Jonathan Test Na 03/09/17 21:20 A-a O2 Difference 125.0 mm/Hg 03/09/17 21:20 Respiratory Index 1.3 03/09/17 21:20 Hgb O2 Saturation 94.9 % (95.0-98.0) L 03/09/17 21:20 Liter Flow 4.0 03/09/17 21:20 FiO2 37.0 % 03/09/17 21:20 Sodium 134 mmol/L (132-148) 03/15/17 07:51 Potassium 4.4 mmol/L (3.6-5.2) 03/15/17 07:51 Chloride 94 mmol/L (98-107) L 03/15/17 07:51 Carbon Dioxide 29 mmol/L (22-30) 03/15/17 07:51 Anion Gap 16 (10-20) 03/15/17 07:51 BUN 18 mg/dL (7-17) H 03/15/17 07:51 Creatinine 0.6 MG/DL (0.7-1.2) L 03/15/17 07:51 Est GFR ( Amer) > 60 03/15/17 07:51 Est GFR (Non-Af Amer) > 60 03/15/17 07:51 POC Glucose (mg/dL) 82 mg/dL (65-110) 03/15/17 11:23 Random Glucose 163 mg/dL (65-105) H 03/15/17 07:51 Hemoglobin A1c 6.3 % (4.2-6.5) 03/10/17 07:18 Calcium 8.6 mg/dl (8.6-10.4) 03/15/17 07:51 Phosphorus 3.7 mg/dL (2.5-4.5) 03/13/17 08:26 Magnesium 2.3 mg/dL (1.6-2.3) 03/13/17 08:26 Iron 25 ug/dL (37-170) L 03/10/17 07:18 TIBC 407 ug/dL (250-450) 03/10/17 07:18 % Saturation 6 (20-55) L 03/10/17 07:18 Ferritin 8.7 ng/mL 03/10/17 07:18 Total Bilirubin 0.7 mg/dL (0.2-1.3) 03/15/17 07:51 AST 32 U/L (14-36) 03/15/17 07:51 ALT 89 U/L (9-52) H 03/15/17 07:51 Alkaline Phosphatase 104 U/L (38-126) 03/15/17 07:51 Total Protein 7.2 g/dL (6.3-8.3) 03/15/17 07:51 Albumin 4.2 g/dL (3.5-5.0) 03/15/17 07:51 Globulin 3.0 gm/dL (2.2-3.9) 03/15/17 07:51 Albumin/Globulin Ratio 1.4 (1.0-2.1) 03/15/17 07:51 Triglycerides 112 mg/dL (0-149) 03/10/17 07:18 Cholesterol 220 mg/dL (0-199) H 03/10/17 07:18 LDL Cholesterol Direct 138 mg/dL (0-129) H 03/10/17 07:18 HDL Cholesterol 67 mg/dL (30-70) 03/10/17 07:18 Vitamin B12 562 pg/mL (239-931) 03/10/17 07:18 25-OH Vitamin D Total 14.6 NG/ML (30.0-100.0) L 03/10/17 07:18 Folate 10.3 ng/mL 03/10/17 07:18 Free T4 0.63 ng/dL (0.78-2.19) L 03/11/17 07:37 Total T3 1.07 nmol/L (1.49-2.60) L 03/11/17 07:37 TSH 3rd Generation 0.63 mIU/L (0.46-4.68) 03/10/17 07:18 Urine Color Yellow (YELLOW) 03/11/17 20:42 Urine Clarity Hazy (Clear) 03/11/17 20:42 Urine pH 6.0 (5.0-8.0) 03/11/17 20:42 Ur Specific [place] 1.008 (1.003-1.030) 03/11/17 20:42 Urine Protein Negative mg/dL (NEGATIVE) 03/11/17 20:42 Urine Glucose (UA) Normal mg/dL (Normal) 03/11/17 20:42 Urine Ketones Negative mg/dL (NEGATIVE) 03/11/17 20:42 Urine Blood Negative (NEGATIVE) 03/11/17 20:42 Urine Nitrate Positive (NEGATIVE) H 03/11/17 20:42 Urine Bilirubin Negative (NEGATIVE) 03/11/17 20:42 Urine Urobilinogen Normal mg/dL (0.2-1.0) 03/11/17 20:42 Ur Leukocyte Esterase Neg Mauro/uL (Negative) 03/11/17 20:42 Urine WBC (Auto) < 1 /hpf (0-5) 03/11/17 20:42 Ur Squamous Epith Cells 1 /hpf (0-5) 03/11/17 20:42 Urine Bacteria Occ (<OCC) H 03/11/17 20:42 Urine HCG, Qual Negative (NEGATIVE) 03/11/17 20:42 Discharge Plan - Discharge Medications Prescriptions: Albuterol HFA [Ventolin HFA 90 mcg/actuation (8 g)] 2 puff INH PRN PRN #1 inhaler PRN Reason: Wheezing Ergocalciferol [Drisdol 50,000 Intl Units Cap] 1 cap PO Q7D #11 cap Ferrous Sulfate [Feosol] 325 mg PO BID #60 tab Fluticasone/Salmeterol 500/50 [Advair Diskus 500/50] 1 puff INH RQ12 #1 dsk Methylprednisolone [Medrol Dose Pack (21 tabs)] 4 mg PO DAILY #21 mg Montelukast [Singulair] 10 mg PO HS #30 tab Simvastatin 20 mg PO HS #30 tablet - Follow Up Plan Condition: STABLE Disposition: HOME/ ROUTINE Instructions: Iron Supplements (By mouth), Albuterol (By breathing), Ergocalciferol (By mouth), Methylprednisolone (By mouth), Simvastatin (By mouth) , Montelukast (By mouth), Fluticasone/Salmeterol (By breathing), Asthma (DC) Additional Instructions: Patient is stable for discharge home. Patient is to follow up in the [facility] on April 15 at 10:00 AM for post hospital care. She is to take the following medications: Ventolin inhaler as needed every 4 hours for shortness of breath Medrol dose pack - take as instructed on the pack Singulair 10mg one by mouth at bedtime Advair 500/50 one puff every 12 hours Simvastatin 20mg one by mouth at bedtime Vitamin D 28498 U one by mouth weekly - to start on 03/17 Ferrous Sulfate 325mg one by mouth twice a day All prescriptions were sent to the [facility] outpatient pharmacy. Patient is to return to the emergency room if symptoms return. All instructions explained to the patient and she agrees. Referrals: [facility] [Outside] Attending/Attestation - Attestation I have personally seen and examined this patient.: Yes I have fully participated in the care of the patient.: Yes I have reviewed all pertinent clinical information, including history, physical exam and plan: Yes Notes (Text): Patient seen, examined and case discussed with day-time resident. Patient seen at bedside this morning. Patient reports breathing is much improved and reporting she is walking better than she has yesterday. Patient has currently been on IV steroids since 03/11/17 to account for leukocytosis and afebrile. Peak flow improved from 120 on admission to 220 during hospitalization. Patient recommended follow-up a the [facility] to establish care and follow-up post hospitalization, appointment on April 15 2017 at 10:00AM , will need repeat blood work including CBC, iron studies, and Vitamin D level and possible GI consult given mural thickening noted on CT scan and pulm referrals for asthma and KEM history. New prescriptions upon discharge: 1) Medrol dose pack (use as described) 2) Albuterol HFA 2 puff Q 4hour PRN shortness of breathe 3) Advair 500/50 1 puff inhaled Q 12hours 4) Singular 10mg PO qHS 5) Simvastatin 20mg PO qHS 6) Vitamin D 50,000 IU once a week for 11 weeks 7) Ferrous sulfate 325mg PO BID Discharge order and discharge instructions discussed with day-time resident and with patient at bedside. This is a summary of patient's hospitalization. Please see EMR for further details Assessment/Plan 1) Moderate persistent Asthma WBC 13.7- trending down Never intubated, multiple ED/hospitalizations - latest [place] 02/09/17, called back for opacity on X-ray but did not follow PCXR (03/09/17): left nodular densities at left lung base O2 2L prn Duoneb Q4H KATELYN Advair 500/50 INh RQ12 Solu-medrol 40mg IV [id number] Singulair 10 mg po hs Peak flow 200, was 120 yesterday, improving CT - Circumscribed sclerotic focus in the anterior end of the left 6th rib most likely a bone island, accounts for nodular opacity on chest radiograph. Postsurgical changes. Mural thickening of the distal esophagus. Consider endoscopy. Multifocal small ill-defined areas of groundglass opacity in both lungs. nonspecific. Consider infectious or inflammatory etiology. Follow up with noncontrast CT exam is advised. 2) Cough OTC cough medicine Completed 6 day course of Azithromycin 3) Leukocytosis Likely due to IV steroids Will need repeat CBC on follow-up after completed Medrol dose pack for asthma exacerbation 4) Diabetes Mellitus (Type 2) Admittedly non-compliant - has not taken Januvia for one year Regular Insulin sliding scale SC Accuchecks HbA1c - 6.3 Crestor 5 mg PO HS switched to Simvastatin on discharge due to affordability History of gastric bypass 5) Hx of HTN (hypertension) Since Gastric Bypass has not taken meds Normotensive off medications Monitor 6) Hx of Hypothyroid Pt admits non-compliance TSH 0.63 T4 - 0.63 T3 - 1.07 7) Hypercholesterolemia Pt not taking meds LDL 138, HDL 67, Tchol 220, Trig 112 Crestor 5 mg PO HS -->Switch to Simvastatin 20mg POqHS History of gastric bypass surgery 8) Hx gastric bypass for obesity Gastric bypass (2003) Denies taking MV/supplementation Fe 25, TIBC 407, %sat 6, Michael 8.7 Ferrous sulfate 325 mg PO BID Vit B12 562 Folate 10.4 Vit D 14 - With give 50,000 U Vit D weekly first dose (03/10) to complete total 12 week for vitamin V deficiency 9) Anxiety Alprazolam 1mg PO TID during hospitalization 10) Hx of KEM No hx of bipap Will need to follow-up outpatient 11) Smoker 1ppd x 20 yrs, 1/2 ppd x 3 yrs Pt refusing nicotine patch Contributing factor to her asthma exacerbation 12) RUQ pain Abdominal Ultrasound- Mildly echogenic liver, likely fatty infiltration or hepatic parenchymal disease. trace pericholecystic fluid. Resolved 13) Prophylaxis B/L SCD Pepcid 20mg PO BID heparin 5000 u SC Q12H <Layla Poe - Last Filed: 03/16/17 07:20> Provider - Provider Date of Admission: 03/11/17 14:05 Attending physician: Mk Villanueva DO Primary care physician: none Consults: none Time Spent in preparation of Discharge (in minutes): 35 Diagnosis - Discharge Diagnosis (1) Asthma exacerbation Status: Acute Hospital Course - Lab Results Lab Results: Most Recent Lab Values WBC 24.8 K/uL (4.8-10.8) H D 03/15/17 07:51 RBC 4.60 Mil/uL (3.80-5.20) 03/15/17 07:51 Hgb 12.3 g/dL (11.0-16.0) 03/15/17 07:51 Hct 39.1 % (34.0-47.0) 03/15/17 07:51 MCV 85.0 fL (81.0-99.0) 03/15/17 07:51 MCH 26.7 pg (27.0-31.0) L 03/15/17 07:51 MCHC 31.5 g/dL (33.0-37.0) L 03/15/17 07:51 RDW 17.7 % (11.5-14.5) H 03/15/17 07:51 Plt Count 446 K/uL (130-400) H 03/15/17 07:51 MPV 7.2 fL (7.2-11.7) 03/15/17 07:51 Neut % (Auto) 77.3 % (50.0-75.0) H 03/15/17 07:51 Lymph % (Auto) 17.4 % (20.0-40.0) L 03/15/17 07:51 Gregory % (Auto) 5.1 % (0.0-10.0) 03/15/17 07:51 Eos % (Auto) 0.1 % (0.0-4.0) 03/15/17 07:51 Baso % (Auto) 0.1 % (0.0-2.0) 03/15/17 07:51 Neut # 19.2 K/uL (1.8-7.0) H 03/15/17 07:51 Lymph # 4.3 K/uL (1.0-4.3) 03/15/17 07:51 Gregory # 1.3 K/uL (0.0-0.8) H 03/15/17 07:51 Eos # 0.0 K/uL (0.0-0.7) 03/15/17 07:51 Baso # 0.0 K/uL (0.0-0.2) 03/15/17 07:51 Neutrophils % (Manual) 94 % (50-75) H 03/11/17 07:37 Band Neutrophils % 2 % (0-2) 03/09/17 18:20 Lymphocytes % (Manual) 5 % (20-40) L 03/11/17 07:37 Monocytes % (Manual) 1 % (0-10) 03/11/17 07:37 Platelet Estimate Normal (NORMAL) 03/11/17 07:37 Polychromasia Slight 03/11/17 07:37 Hypochromasia (manual) Slight 03/11/17 07:37 Poikilocytosis (manual Slight 03/10/17 07:18 Anisocytosis (manual) Slight 03/11/17 07:37 Puncture Site Rra 03/09/17 21:20 pCO2 36 mm/Hg (35-45) 03/09/17 21:20 pO2 94 mm/Hg (80-100) 03/09/17 21:20 HCO3 22.8 mmol/L (21-28) 03/09/17 21:20 ABG pH 7.39 (7.35-7.45) 03/09/17 21:20 ABG Total CO2 22.9 mmol/L (22-28) 03/09/17 21:20 ABG O2 Saturation 95.2 % (95-98) 03/09/17 21:20 ABG Base Excess -2.7 mmol/L (-2.0-3.0) L 03/09/17 21:20 ABG Hemoglobin 10.8 g/dL (11.7-17.4) L 03/09/17 21:20 ABG Carboxyhemoglobin 0 % (0.5-1.5) L 03/09/17 21:20 POC ABG HHb (Measured) 4.8 % (0.0-5.0) 03/09/17 21:20 ABG Methemoglobin 0.3 % (0.0-3.0) 03/09/17 21:20 Jonathan Test Na 03/09/17 21:20 A-a O2 Difference 125.0 mm/Hg 03/09/17 21:20 Respiratory Index 1.3 03/09/17 21:20 Hgb O2 Saturation 94.9 % (95.0-98.0) L 03/09/17 21:20 Liter Flow 4.0 03/09/17 21:20 FiO2 37.0 % 03/09/17 21:20 Sodium 134 mmol/L (132-148) 03/15/17 07:51 Potassium 4.4 mmol/L (3.6-5.2) 03/15/17 07:51 Chloride 94 mmol/L (98-107) L 03/15/17 07:51 Carbon Dioxide 29 mmol/L (22-30) 03/15/17 07:51 Anion Gap 16 (10-20) 03/15/17 07:51 BUN 18 mg/dL (7-17) H 03/15/17 07:51 Creatinine 0.6 MG/DL (0.7-1.2) L 03/15/17 07:51 Est GFR ( Amer) > 60 03/15/17 07:51 Est GFR (Non-Af Amer) > 60 03/15/17 07:51 POC Glucose (mg/dL) 82 mg/dL (65-110) 03/15/17 11:23 Random Glucose 163 mg/dL (65-105) H 03/15/17 07:51 Hemoglobin A1c 6.3 % (4.2-6.5) 03/10/17 07:18 Calcium 8.6 mg/dl (8.6-10.4) 03/15/17 07:51 Phosphorus 3.7 mg/dL (2.5-4.5) 03/13/17 08:26 Magnesium 2.3 mg/dL (1.6-2.3) 03/13/17 08:26 Iron 25 ug/dL (37-170) L 03/10/17 07:18 TIBC 407 ug/dL (250-450) 03/10/17 07:18 % Saturation 6 (20-55) L 03/10/17 07:18 Ferritin 8.7 ng/mL 03/10/17 07:18 Total Bilirubin 0.7 mg/dL (0.2-1.3) 03/15/17 07:51 AST 32 U/L (14-36) 03/15/17 07:51 ALT 89 U/L (9-52) H 03/15/17 07:51 Alkaline Phosphatase 104 U/L (38-126) 03/15/17 07:51 Total Protein 7.2 g/dL (6.3-8.3) 03/15/17 07:51 Albumin 4.2 g/dL (3.5-5.0) 03/15/17 07:51 Globulin 3.0 gm/dL (2.2-3.9) 03/15/17 07:51 Albumin/Globulin Ratio 1.4 (1.0-2.1) 03/15/17 07:51 Triglycerides 112 mg/dL (0-149) 03/10/17 07:18 Cholesterol 220 mg/dL (0-199) H 03/10/17 07:18 LDL Cholesterol Direct 138 mg/dL (0-129) H 03/10/17 07:18 HDL Cholesterol 67 mg/dL (30-70) 03/10/17 07:18 Vitamin B12 562 pg/mL (239-931) 03/10/17 07:18 25-OH Vitamin D Total 14.6 NG/ML (30.0-100.0) L 03/10/17 07:18 Folate 10.3 ng/mL 03/10/17 07:18 Free T4 0.63 ng/dL (0.78-2.19) L 03/11/17 07:37 Total T3 1.07 nmol/L (1.49-2.60) L 03/11/17 07:37 TSH 3rd Generation 0.63 mIU/L (0.46-4.68) 03/10/17 07:18 Urine Color Yellow (YELLOW) 03/11/17 20:42 Urine Clarity Hazy (Clear) 03/11/17 20:42 Urine pH 6.0 (5.0-8.0) 03/11/17 20:42 Ur Specific [place] 1.008 (1.003-1.030) 03/11/17 20:42 Urine Protein Negative mg/dL (NEGATIVE) 03/11/17 20:42 Urine Glucose (UA) Normal mg/dL (Normal) 03/11/17 20:42 Urine Ketones Negative mg/dL (NEGATIVE) 03/11/17 20:42 Urine Blood Negative (NEGATIVE) 03/11/17 20:42 Urine Nitrate Positive (NEGATIVE) H 03/11/17 20:42 Urine Bilirubin Negative (NEGATIVE) 03/11/17 20:42 Urine Urobilinogen Normal mg/dL (0.2-1.0) 03/11/17 20:42 Ur Leukocyte Esterase Neg Mauro/uL (Negative) 03/11/17 20:42 Urine WBC (Auto) < 1 /hpf (0-5) 03/11/17 20:42 Ur Squamous Epith Cells 1 /hpf (0-5) 03/11/17 20:42 Urine Bacteria Occ (<OCC) H 03/11/17 20:42 Urine HCG, Qual Negative (NEGATIVE) 03/11/17 20:42 - Hospital Course Hospital Course: PMHx: Hypothyroid, KEM, Gastritis, Hyperlipidemia, Anxiety, CAD, T2DM, HTN PSHx: Endoscopy (2013), Bariatric Sx (Binta-en-Y 2013) Allergies: Avelox SHx: Smoked 1ppd from 13 to 33, approx 1/2 ppd x 3 years ~ 23.5 pack history; denies alcohol/illicit drug use; works from [facility] [employer]am Hx: Mom - Asthma, Father - Colon CA, T2DM, HTN, CVA PMD: [facility] Home meds: Advair Diskus 250/50, Xanax 1mg TID, Albuterol HFA 90mcg On admission: Patient is a 36 yo female, with PMHx of asthma, anxiety, HTN, T2DM, hyperlipidemia, gastritis, KEM, hypothyroid, who presents to ED with 3 day history of productive cough, SOB, and wheezing. She admits to multiple hospitalizations/ED visits for asthma exacerbations, the most recent being in [place]. She denies previous intubation, but admits to 'close-call' at [facility] in May of 2016. Patient states she usually has asthma exacerbations with 'weather changes' and during tree pollen allergy season. She admits productive cough with yellow-green sputum for last two days, but denies worsening of cough at night. She reports taking Claritin and Em, and using her nebulizer four times daily without improvement. Wheezing started last night , and was unresponsive to home meds. Patient denies recent sick contacts, recent travel, recent antibiotic use. As above, pt last admission/ED visit was to [place] on 02/09/17, that resulted in discharge with 5 days of Prednisone taper. On that visit pt was called back for xray finding showing 11mm nodular opacity, and radiologist recommended repeat CXR or CT Chest w/o contrast as follow-up. Pt denies having this test performed. She admits non-compliance with diabetes, hypothyroid, or vitamins post-gastric bypass. Denies CP, abd pain, fevers, chills, n/v/d/c, rashes, headache, dizziness, fatigue. During hospital Stay: Patient was admitted for Asthma exacerbation. CT chets showed Circumscribed sclerotic focus in the anterior end of the left 6th rib most likely a bone island, accounts for nodular opacity on chest radiograph. Postsurgical changes. Mural thickening of the distal esophagus. Consider endoscopy. Multifocal small ill-defined areas of groundglass opacity in both lungs. nonspecific. Consider infectious or inflammatory etiology. Follow up with noncontrast CT exam is advised. She was given Duoneb Q4H KATELYN, Advair 500/ 50 INh RQ12, Solu-medrol 40mg IV [id number] and Singulair 10 mg po hs. Her wheezing and SOb improved. She was given Azithromycin to cover for potential pneumonia due to the fact that she had leukocytosi and a productive cough with green/ywlloe sputum. She was put on ISS to control her sugars ad well as given a statin. BP was controlled. She was given weekly vitamin D and electrolytes were replaced as indicated. Patient is stable for discharge home. Patient is to follow up in the [facility] on April 15 at 10:00 AM for post hospital care. She is to take the following medications: Ventolin inhaler as needed every 4 hours for shortness of breath Medrol dose pack - take as instructed on the pack Singulair 10mg one by mouth at bedtime Advair 500/50 one puff every 12 hours Simvastatin 20mg one by mouth at bedtime Vitamin D 55986 U one by mouth weekly - to start on 03/17 Ferrous Sulfate 325mg one by mouth twice a day All prescriptions were sent to the [facility] outpatient pharmacy. Patient is to return to the emergency room if symptoms return. All instructions explained to the patient and she agrees. Discharge Exam - Head Exam Head Exam: ATRAUMATIC, NORMAL INSPECTION, NORMOCEPHALIC - Eye Exam Eye Exam: EOMI, Normal appearance, PERRL Pupil Exam: NORMAL ACCOMODATION - ENT Exam ENT Exam: Mucous Membranes Moist - Respiratory Exam Respiratory Exam: Wheezes, NORMAL BREATHING PATTERN. absent: Accessory Muscle Use, Decreased Breath Sounds, Respiratory Distress - GI/Abdominal Exam GI & Abdominal Exam: Normal Bowel Sounds, Soft. absent: Distended, Firm, Guarding, Unremarkable - Extremities Exam Extremities exam: normal inspection - Back Exam Back exam: NORMAL INSPECTION. absent: CVA tenderness (L), CVA tenderness (R), paraspinal tenderness - Neurological Exam Neurological exam: Alert, CN II-XII Intact, Normal Gait, Oriented x3 - Psychiatric Exam Psychiatric exam: Normal Affect, Normal Mood - Skin Skin Exam: Dry, Intact, Normal Color, Warm
== END 2017-03-15 15:10 | disposition home or self-care (01) | DRG 97 ==
LOC: C.ER 15:51 → C.3T 18:49 → OBSVTOIN 03-11 14:05 → C.3T 03-13 22:38
PROVIDERS: ADMIT Hospitalist; ATTEND Hospitalist
DX: J45.41 Moderate persistent asthma with (acute) exacerbation (principal); E11.9 Type 2 diabetes mellitus without complications; I10 Essential (primary) hypertension; E03.9 Hypothyroidism, unspecified; D64.9 Anemia, unspecified; E78.5 Hyperlipidemia, unspecified; D72.829 Elevated white blood cell count, unspecified; E78.00 Pure hypercholesterolemia, unspecified; F17.200 Nicotine dependence, unspecified, uncomplicated; Z98.84 Bariatric surgery status; T38.0X5A Adverse effect of glucocorticoids and synthetic analogues, initial encounter; Z83.3 Family history of diabetes mellitus; Z80.0 Family history of malignant neoplasm of digestive organs; Z82.3 Family history of stroke; Z87.442 Personal history of urinary calculi; Z91.19 Patient's noncompliance with other medical treatment and regimen; I25.10 Atherosclerotic heart disease of native coronary artery without angina pectoris; F41.9 Anxiety disorder, unspecified; G47.33 Obstructive sleep apnea (adult) (pediatric); Z79.4 Long term (current) use of insulin

== ENCOUNTER 2017-05-10 09:51 | Observation (INO) | payer OTHER ==
[2017-05-10 09:51] VITALS: BMI 27.9
[2017-05-10] MEDS ORDERED: Sodium Chloride 0.9% 1,000 ML IV ONE (10:15)
[2017-05-10] MEDS ORDERED: Sodium Chloride 0.9% 1,000 ML ONE (10:28)
[2017-05-10 10:34] LABS: BASO # 0.1 K/uL (0.0-0.2); BASO % 0.9 % (0.0-2.0); EOS # 0.6 K/uL (0.0-0.7); EOS % 7.3 % (0.0-4.0); HEMATOCRIT 33.5 % (34.0-47.0); LYMPH # 2.6 K/uL (1.0-4.3); LYMPH % 31.9 % (20.0-40.0); MEAN CORPUSCULAR HEMOGLOBIN 28.1 pg (27.0-31.0); MEAN CORPUSCULAR HGB CONC 33.1 g/dL (33.0-37.0); MEAN PLATELET VOLUME 7.5 fL (7.2-11.7); MONO # 0.6 K/uL (0.0-0.8); MONO % 7.5 % (0.0-10.0); RED CELL DISTRIBUTION WIDTH 17.9 % (11.5-14.5)
[2017-05-10 10:36] LABS: WHITE BLOOD COUNT 8.3 K/uL (4.8-10.8)
[2017-05-10 10:53] LABS: URINE BILIRUBIN NEGATIVE (NEGATIVE); URINE BLOOD NEGATIVE (NEGATIVE); URINE COLOR Yellow (YELLOW); URINE GLUCOSE (UA) NORMAL (Normal); URINE KETONE NEGATIVE (NEGATIVE); URINE LEUKOCYTE ESTERASE NEG Leu/uL (Negative); URINE PROTEIN NEGATIVE (NEGATIVE); URINE UROBILINOGEN NORMAL mg/dL (0.2-1.0)
[2017-05-10 10:54] LABS: CHLORIDE 100 mmol/L (98-107); POTASSIUM 3.9 mmol/L (3.6-5.2); SODIUM 138 mmol/L (132-148)
[2017-05-10 10:56] LABS: BILIRUBIN,TOTAL 0.6 mg/dL (0.2-1.3); CARBON DIOXIDE 25 mmol/L (22-30); GFR AFRICAN-AMERICAN > 60
[2017-05-10 10:57] LABS: ALB/GLOB RATIO 1.3 (1.0-2.1); ALKALINE PHOSPHATASE 119 U/L (38-126); ALT/SGPT 25 U/L (9-52); AST/SGOT 21 U/L (14-36); BLOOD UREA NITROGEN 4 mg/dL (7-17); CALCIUM 8.5 mg/dl (8.6-10.4); GLUCOSE,RANDOM 111 mg/dL (65-105); TOTAL PROTEIN 6.3 g/dL (6.3-8.3)
--- NOTE | 2017-05-10 11:47 | C.PDOC ---
History Of Present Illness 36 yo female w/PMhx of gastric bypass 3 yrs ago, come in for evaluation of epigastric pain, nausea gradually developed for past 2-3 days, decrease appetite. Pt sts, " did not have bowel movement for few days and took Miralax yesterday. Today in AM, had BM with black stool". Otherwise, pt denies fever, chills, headache, dizziness, weakness, neck pain, CP, SOB, dyspnea, diaphoresis , hematemesis, vomiting, back pain, UTI sx. Ambulate to ED. PMHx: Hypothyroid, KEM, Gastritis, Hyperlipidemia, Anxiety, CAD, T2DM, HTN PSHx: Endoscopy (2013), Bariatric Sx (Binta-en-Y 2013) Allergies: Avelox SHx: Smoked 1ppd from 13 to 33, approx 1/2 ppd x 3 years ~ 23.5 pack history; denies alcohol/illicit drug use; works from [employer] [facility] Hx: Mom - Asthma, Father - Colon CA, T2DM, HTN, CVA PMD: [employer] [facility] [employer] Home meds: Advair Diskus 250/50, Xanax 1mg TID, Albuterol HFA 90mcg Time Seen by Provider: 05/10/17 10:12 Chief Complaint (Nursing): Abdominal Pain History Per: Patient Onset/Duration Of Symptoms: Days, Gradual Current Symptoms Are (Timing): Still Present Severity: Mild Location Of Pain/Discomfort: Epigastric Radiation Of Pain To:: None Quality Of Discomfort: "Pain" Associated Symptoms: Nausea. denies: Fever, Chills, Vomiting, Diarrhea, Back Pain, Chest Pain, Urinary Symptoms Exacerbating Factors: None Alleviating Factors: None Recent travel outside of the [place]: No Past Medical History Reviewed: Historical Data, Nursing Documentation, Vital Signs Vital Signs: Last Vital Signs Temp 97.8 F 05/10/17 16:30 Pulse 107 H 05/10/17 16:30 Resp 20 05/10/17 16:30 BP 108/76 05/10/17 16:30 Pulse Ox 97 05/10/17 16:52 - Medical History PMH: Anxiety, Arthritis, Asthma, CAD, Diabetes, Fractures (right middle finger, right foot), Gastritis, HTN, Hypercholesterolemia, Hypothyroidism, Kidney Stones , Sleep Apnea (mild) Surgical History: Endoscopy (2013) - [facility] Procedures HIGHLY SELECT VAGOTOMY (04/18/14) LAPAROSCOPIC GASTROENTEROSTOMY (04/18/14) LINEAR REP LID LACER (03/06/13) OTHER ENDOSCOPY OF SM INTEST (04/18/14) Family History: States: No Known Family Hx - Social History Hx Tobacco Use: Yes Hx Alcohol Use: No Hx Substance Use: No - Immunization History Hx Tetanus Toxoid Vaccination: Yes Hx Influenza Vaccination: Yes Hx Pneumococcal Vaccination: No Review Of Systems Except As Marked, All Systems Reviewed And Found Negative. Constitutional: Negative for: Fever, Chills ENT: Negative for: Throat Pain Cardiovascular: Negative for: Chest Pain, Edema, Light Headedness Respiratory: Negative for: Cough, Shortness of Breath, Wheezing Gastrointestinal: Positive for: Nausea, Abdominal Pain, Melena. Negative for: Vomiting, Hematochezia, Hematemesis Genitourinary: Negative for: Dysuria, Frequency, Incontinence Musculoskeletal: Negative for: Neck Pain, Back Pain Skin: Negative for: Rash Neurological: Negative for: Weakness, Numbness, Altered Mental Status, Headache Physical Exam - Physical Exam Appears: Well, Non-toxic, No Acute Distress Skin: Normal Color, Warm, Dry, No Rash Eye(s): bilateral: PERRL Nose: No Flaring, No Discharge Oral Mucosa: Moist Throat: No Erythema, No Drooling Neck: Supple Cardiovascular: Rhythm Regular Respiratory: No Decreased Breath Sounds, No Accessory Muscle Use, No Stridor, No Wheezing Gastrointestinal/Abdominal: Soft, Tenderness (mild epigstric tenderness.), No Distention, No Guarding, No Rebound Back: No CVA Tenderness Extremity: No Pedal Edema Neurological/Psych: Oriented x3, Normal Speech ED Course And Treatment - Laboratory Results Result Diagrams: 05/10/17 10:26 05/10/17 10:26 O2 Sat by Pulse Oximetry: 97 (room air) Pulse Ox Interpretation: Normal - CT Scan/US CT abd/pelvis Other Rad Studies (CT/US): Radiology Report Reviewed CT/US Interpretation: Accession No. : [id number]. Patient Name / ID : RADHA BRIDGES / [id number]. Exam Date : 05/10/2017 14:30:53 ( Approved ). Study Comment : Sex / Age : F / 36Y. Creator : Pat Marino MD. Dictator : Pharmacist Technician : Data Entry Technician : Pat Marino MD. Approver2 : Report Date : 05/10/2017 15:49:54. My Comment : . PROCEDURE: CT Abdomen and Pelvis with contrast. HISTORY: flank pain. COMPARISON: Limited abdominal ultrasound performed 03/10/17. TECHNIQUE: Contrast dose: 100 mL Visipaque. Radiation dose: Total exam DLP = 1020.95 MGy-cm. This CT exam was performed using one or more of the following dose reduction techniques: Automated exposure control, adjustment of the mA and/or kV according to patient size, and/or use of iterative reconstruction technique. FINDINGS: LOWER THORAX : No visible consolidation, pleural effusion, or pneumothorax. LIVER: Hypoattenuation of the liver compatible with hepatic steatosis. GALLBLADDER AND BILE DUCTS: Unremarkable. PANCREAS: Unremarkable. SPLEEN: Unremarkable. ADRENALS: Unremarkable. KIDNEYS AND URETERS: The kidneys enhance symmetrically. No hydronephrosis or obstructing calculus identified. VASCULATURE: No aortic aneurysm. BOWEL: Postsurgical gastric changes. Stomach is nondistended. Small amount of ingested oral contrast, possibly from prior outside imaging- correlate clinically. Inadequate oral contrast for evaluation of bowel pathology. Anastomotic suture material noted within the mid abdomen. Bowel loops appear within normal limits of caliber without evidence of obstruction. APPENDIX: The appendix is not identified. No secondary signs of acute appendicitis. PERITONEUM: Trace fluid in the cul-de-sac. No definite free air. LYMPH NODES: Prominent mesenteric lymph nodes, nonspecific. No bulky adenopathy identified. BLADDER: Unremarkable. REPRODUCTIVE: The uterus is present. BONES: No acute osseous abnormality is detected. OTHER FINDINGS: None. IMPRESSION: Whirling appearance of mesenteric vessels. Mesenteric edema. No evidence of bowel obstruction. Whirling appearance of mesenteric vessels is nonspecific appearance however may be seen in the setting of internal hernia. Correlate clinically. Prominent mesenteric lymph nodes. Correlate clinically for possibility of mesenteric adenitis. Trace fluid in the cul-de-sac. Additional findings as above. Medical Decision Making Medical Decision Making: US Gallbladder from 03/13/17: IMPRESSION: Mildly Echogenic liver, likely representing fatty infiltration or hepatic parenchymal disease. Trace pericholecystic fluid . ED OBSERVATION Discharge: Yes Date of observation admission: 05/10/17 Time of observation admission: 10:15 - Observation admission statement Patient is being placed in observation because:: Abdominal pain, nausea - Goals of Observation Goals of observation are:: Diagnostics, sx tx, re-eval - Progress Note Progress Note: 05/10/17 At 12:10, pt c/o epigastric pain. Abd: (+) mild epigastric tenderness. Toradol, Tylenol order. At 13:02, as per RN, pt refused previous pain medication. On re-eval, pt reports, " This medication does not help me with pain. I usually take Oxycodone for pain". Pt appears unhappy, cursing. Pt now states that epigastric pain is slightly better but have lower back pain now. Blood work review from today and appears without acute abnormalities. AU- normal. Occult stool (-) for blood. US of gallbladder performed recently on 03/17/17 and appears normal. results were explained to pt. Pt request CT abdomen now. At 16:10, Diagnostics of CT abd/pelvis review and appears without acute abnormalities. PMPNJ: Multiple rx noted with last 05/03/17 [id number]#90 and [id number]#120 by , pain management. Case discussed/results review with ED attending and no further evaluation recommend at present time. On re-eval, pt was comfortably sleeping, when I woke her up and tried to explain results she became aggressive, started to curse me " I know something is wrong". Attempted to explain all results and findings to patient, no acute abnormalities noted at present time. Case was also discussed with , pain management, and notified about patient visit. Results also reviewed and discussed. Pt recommend to F/u with PMD, GI and surgery for re-evaluation. Pt appears very unhappy. Disposition Counseled Patient/Family Regarding: Studies Performed, Diagnosis, Need For Followup, Rx Given - Disposition Disposition: HOME/ ROUTINE Disposition Time: 16:35 Condition: STABLE - Clinical Impression Clinical Impression: Epigastric abdominal pain
[2017-05-10] MEDS ORDERED: HYDROmorphone 1 mg/ml ISec IVP STA (13:28)
[2017-05-10] MEDS ORDERED: HYDROmorphone 1 mg/ml ISec ONE (14:13)
[2017-05-10] MEDS ORDERED: Iodixanol 320 MG/ML 100 ML BOTTLE IV ONE (14:28)
[2017-05-10 15:02] VITALS: PULSE 107
--- NOTE | 2017-05-10 16:00 | CT ---
PROCEDURE: CT Abdomen and Pelvis with contrast HISTORY: flank pain COMPARISON: Limited abdominal ultrasound performed 03/10/17 TECHNIQUE: Contrast dose: 100 mL Visipaque Radiation dose: Total exam DLP = 1020.95 MGy-cm. This CT exam was performed using one or more of the following dose reduction techniques: Automated exposure control, adjustment of the mA and/or kV according to patient size, and/or use of iterative reconstruction technique. FINDINGS: LOWER THORAX: No visible consolidation, pleural effusion, or pneumothorax. LIVER: Hypoattenuation of the liver compatible with hepatic steatosis. GALLBLADDER AND BILE DUCTS: Unremarkable. PANCREAS: Unremarkable. SPLEEN: Unremarkable. ADRENALS: Unremarkable. KIDNEYS AND URETERS: The kidneys enhance symmetrically. No hydronephrosis or obstructing calculus identified. VASCULATURE: No aortic aneurysm. BOWEL: Postsurgical gastric changes. Stomach is nondistended. Small amount of ingested oral contrast, possibly from prior outside imaging- correlate clinically. Inadequate oral contrast for evaluation of bowel pathology. Anastomotic suture material noted within the mid abdomen. Bowel loops appear within normal limits of caliber without evidence of obstruction. APPENDIX: The appendix is not identified. No secondary signs of acute appendicitis. PERITONEUM: Trace fluid in the cul-de-sac. No definite free air. LYMPH NODES: Prominent mesenteric lymph nodes, nonspecific. No bulky adenopathy identified. BLADDER: Unremarkable. REPRODUCTIVE: The uterus is present. BONES: No acute osseous abnormality is detected. OTHER FINDINGS: None. IMPRESSION: Whirling appearance of mesenteric vessels. Mesenteric edema. No evidence of bowel obstruction. Whirling appearance of mesenteric vessels is nonspecific appearance however may be seen in the setting of internal hernia. Correlate clinically. Prominent mesenteric lymph nodes. Correlate clinically for possibility of mesenteric adenitis. Trace fluid in the cul-de-sac. Additional findings as above.
[2017-05-10 16:31] VITALS: BP 108/76; RESP 20; TEMP 97.8
[2017-05-10 16:36] VITALS: O2SAT 97
== END 2017-05-10 17:33 | disposition home or self-care (01) ==
LOC: C.ER 09:51 → C.9OBSV 10:15
PROVIDERS: ADMIT Emergency Medicine; ATTEND Emergency Medicine
DX: R10.13 Epigastric pain (principal); E03.9 Hypothyroidism, unspecified; E11.9 Type 2 diabetes mellitus without complications; E78.00 Pure hypercholesterolemia, unspecified; G47.33 Obstructive sleep apnea (adult) (pediatric); I10 Essential (primary) hypertension; J45.909 Unspecified asthma, uncomplicated; Z98.84 Bariatric surgery status
CPT/HCPCS: 74177; 80053; 81001; 83690; 84703; 85025; 96374; 96375; 99285; C9113; G0328; G0378; J1170; J2405; J7040; Q9967

== ENCOUNTER 2018-05-13 23:15 | Inpatient (IN) | payer MEDICAID, OTHER ==
[2018-05-13 23:15] VITALS: BMI 27.9
[2018-05-13] MEDS ORDERED: Sodium Chloride 0.9% 1,000 ML IV ONE (23:30)
[2018-05-13 23:34] LABS: BASO # 0.1 K/uL (0.0-0.2); BASO % 0.8 % (0.0-2.0); EOS # 0.1 K/uL (0.0-0.7); EOS % 0.9 % (0.0-4.0); HEMOGLOBIN 12.4 g/dL (11.0-16.0); LYMPH # 5.9 K/uL (1.0-4.3); LYMPH % 36.5 % (20.0-40.0); MEAN PLATELET VOLUME 6.9 fL (7.2-11.7); MONO # 0.7 K/uL (0.0-0.8); MONO % 4.3 % (0.0-10.0); NEUT # 9.3 K/uL (1.8-7.0); NEUT % 57.5 % (50.0-75.0); RBC 4.41 Mil/uL (3.80-5.20); RED CELL DISTRIBUTION WIDTH 18.9 % (11.5-14.5); WHITE BLOOD COUNT 16.2 K/uL (4.8-10.8)
[2018-05-13] MEDS ORDERED: Sodium Chloride 0.9% 1,000 ML ONE (23:34)
[2018-05-13 23:36] LABS: MEAN CELL VOLUME 82.6 fL (81.0-99.0)
[2018-05-13 23:46] LABS: SQUAMOUS EPITHIAL 30 /hpf (0-5); URINE BACTERIA FEW (<OCC); URINE BILIRUBIN NEGATIVE (NEGATIVE); URINE BLOOD NEGATIVE (NEGATIVE); URINE CLARITY Hazy (Clear); URINE COLOR Yellow (YELLOW); URINE GLUCOSE (UA) NORMAL (Normal); URINE LEUKOCYTE ESTERASE TRACE Leu/uL (Negative); URINE PROTEIN NEGATIVE (NEGATIVE); URINE UROBILINOGEN NORMAL mg/dL (0.2-1.0)
[2018-05-13 23:47] LABS: HCG,QUALITATIVE URINE NEGATIVE (NEGATIVE)
--- NOTE | 2018-05-13 23:55 | C.PDOC ---
History Of Present Illness 37 year old female presents to the ER with a complaint of abdominal pain and 3 episodes of vomiting that began today. Patient has a Hx of chronic back pain and anxiety, she was noted to be on an extensive codeine and [place]anax regiment on [place]. Denies chest pain or SOB. Time Seen by Provider: 05/13/18 23:27 Chief Complaint (Nursing): Abdominal Pain History Per: Patient History/Exam Limitations: no limitations Onset/Duration Of Symptoms: Hrs Current Symptoms Are (Timing): Still Present Location Of Pain/Discomfort: Diffuse Quality Of Discomfort: Unable To Describe Associated Symptoms: Vomiting. denies: Fever, Chills Exacerbating Factors: None Alleviating Factors: None Recent travel outside of the [place]: No Abnormal Vaginal Bleeding: No Past Medical History Reviewed: Historical Data, Nursing Documentation, Vital Signs Vital Signs: Last Vital Signs Temp 98.4 F 05/14/18 03:42 Pulse 129 H 05/14/18 04:00 Resp 20 05/14/18 04:00 BP 128/89 05/14/18 03:42 Pulse Ox 100 05/14/18 04:00 - Medical History PMH: Anxiety, Arthritis, Asthma, CAD, Diabetes, Fractures (right middle finger, right foot), Gastritis, HTN, Hypercholesterolemia, Hypothyroidism, Kidney Stones , Sleep Apnea (mild) [facility] History[facility] Procedures HIGHLY SELECT VAGOTOMY (04/18/14) LAPAROSCOPIC GASTROENTEROSTOMY (04/18/14) LINEAR REP LID LACER (03/06/13) OTHER ENDOSCOPY OF SM INTEST (04/18/14) Family History: States: Unknown Family Hx - Social History Hx Tobacco Use: Yes Hx Alcohol Use: No Hx Substance Use: No - Immunization History Hx Tetanus Toxoid Vaccination: Yes Hx Influenza Vaccination: Yes Hx Pneumococcal Vaccination: No Review Of Systems Constitutional: Negative for: Fever, Chills Cardiovascular: Negative for: Chest Pain, Palpitations Respiratory: Negative for: Cough, Shortness of Breath Gastrointestinal: Positive for: Vomiting, Abdominal Pain Physical Exam - Physical Exam Appears: Other (Anxious, tearful) Skin: Normal Color, Warm, Dry Head: Atraumatic, Normacephalic Eye(s): bilateral: Normal Inspection Oral Mucosa: Moist Chest: Symmetrical, No Tenderness Cardiovascular: Rhythm Regular Respiratory: Normal Breath Sounds, No Rales, No Rhonchi, No Wheezing Gastrointestinal/Abdominal: Bowel Sounds (Active), Soft, Tenderness (Vague), No Guarding, No Rebound Back: No CVA Tenderness Neurological/Psych: Oriented x3, Normal Speech ED Course And Treatment - Laboratory Results Result Diagrams: 05/13/18 23:32 05/13/18 23:32 Lab Interpretation: Abnormal (ghk-[id number] leukocytosis, prob due to prednisone 10 mg QD) O2 Sat by Pulse Oximetry: 99 (Room air) Pulse Ox Interpretation: Normal - CT Scan/US CT abd/pel Other Rad Studies (CT/US): Read By Radiologist, Radiology Report Reviewed CT/US Interpretation: IMPRESSION: There are air fluid levels identified in the small bowel in the pelvis concerning for developing. obstructive pattern. A small volume of free fluid in the pelvis. There is some wall thickening of loops in. the right lower quadrant which appears to be small bowel, correlate for enteritis. There may be an. obstructing adhesion in this patient who has undergone previous gastric bypass and probable. appendectomy. Swirling appearance of the vessels in the right abdomen is stable. There does appear. to be some mesenteric edema. Correlate for an internal hernia. Reevaluation Time: 02:40 Reassessment Condition: Improved - Physician Consult Information Outcome Of Conversation: 0200: d/w Surgical Howard, will eval. 0230: d/w Dr. Roche, Hospitalist Chargemaster Specialist- covering self- pay pts, ok to admit. Medical Decision Making Medical Decision Making: consider SBO vs mesenteric defect/ischemia from internal hernia related to GPB surgery Disposition Doctor Will See Patient In The: Hospital Counseled Patient/Family Regarding: Studies Performed, Diagnosis - Disposition Disposition: HOSPITALIZED Disposition Time: 02:30 Condition: GOOD - Clinical Impression Clinical Impression: Small bowel obstruction due to adhesions - Scribe Statement The provider has reviewed the documentation as recorded by the Scribsuzan Whatley All medical record entries made by the Fabbyibsuzan were at my direction and personally dictated by me. I have reviewed the chart and agree that the record accurately reflects my personal performance of the history, physical exam, medical decision making, and the department course for this patient. I have also personally directed, reviewed, and agree with the discharge instructions and disposition.
[2018-05-13] MEDS ORDERED: Morphine 4 MG/ML VIAL ONE (23:57)
[2018-05-13 23:58] LABS: ALB/GLOB RATIO 1.4 (1.0-2.1); ALBUMIN 4.5 g/dL (3.5-5.0); ALT/SGPT 43 U/L (9-52); AST/SGOT 38 U/L (14-36); BLOOD UREA NITROGEN 7 mg/dL (7-17); CALCIUM 9.9 mg/dl (8.6-10.4); GFR NON-AFRICAN AMERICAN > 60; LIPASE 109 U/L (23-300)
[2018-05-14] MEDS ORDERED: Iodixanol 320 MG/ML 100 ML BOTTLE IV ONE (00:08)
[2018-05-14] MEDS ORDERED: Morphine 4 MG/ML VIAL ONE (01:21)
[2018-05-14 03:06] LABS: BARBITURATES, UR NEGATIVE (NEGATIVE); OPIATES, UR NEGATIVE (NEGATIVE); PHENCYCLIDINE, UR NEGATIVE (NEGATIVE)
[2018-05-14] MEDS ORDERED: Lactated Ringer's 1,000 ML IV SCH (03:15)
--- NOTE | 2018-05-14 03:23 | CP.PCM.CON ---
<Madalyn Leeah - Last Filed: 05/14/18 08:56> History of Present Illness - History of Present Illness History of Present Illness: General Surgery consult note for Dr. Harley Consulted for SBO Mrs. Dong is a 37 yr old F s/p Gastric bypass surgery with Dr. Hamilton 4 yrs ago. patient states that she began having cramping abdominal pain yesterday associated with nausea vomiting (x3) and chills. She had a similar episode almost exactly one year ago which resolved spontaneously without hospital admission. Before her bypass she was approximately 280 lbs. She states that she has also stopped taking her nutritional supplements over the last year. She otherwise denies fevers, diarrhea, bloody stool, bloody or coffee grounds emesis and SOB or Chest pain. PMH: HTN, DM, CAD, Asthma, anxiety, hypothyroidism, HLD, chronic back pain, obesity, gastritis PSH: appendectomy, Gastric bypass 2013 Allergies: moxifloxacin Review of Systems - Review of Systems All systems: reviewed and no additional remarkable complaints except Review of Systems: as per HPI Past Patient History - Infectious Disease Hx of Infectious Diseases: None - Past Medical History & Family History Past Medical History?: Yes - Past Social History Smoking Status: Light Smoker < 10 Cigarettes Daily - CARDIAC Hx Hypercholesterolemia: Yes Hx Hypertension: Yes - PULMONARY Hx Asthma: Yes Hx Sleep Apnea: Yes (mild) - RENAL Hx Kidney Stones: Yes - ENDOCRINE/METABOLIC Hx Hypothyroidism: Yes - MUSCULOSKELETAL/RHEUMATOLOGICAL Hx Arthritis: Yes Hx Fractures: Yes (right middle finger, right foot) - GASTROINTESTINAL Hx Gastritis: Yes - PSYCHIATRIC Hx Anxiety: Yes Hx Substance Use: No - SURGICAL HISTORY Hx Gastric Bypass Surgery: Yes (2013) - ANESTHESIA Hx Anesthesia: Yes Hx Anesthesia Reactions: No Hx Malignant Hyperthermia: No Meds Allergies/Adverse Reactions: Allergies Allergy/AdvReac Type Severity Reaction Status Date / Time moxifloxacin [From Avelox] Allergy Severe RASH Verified 05/13/18 23:21 - Medications Medications: Current Medications Lactated Ringer's (Lactated Ringer's) 1,000 mls @ 150 mls/hr IV .Q6H40M [facility] Ondansetron HCl (Zofran Inj) 4 mg IVP Q4 PRN PRN Reason: Nausea/Vomiting Physical Exam - Constitutional Appears: Well, Non-toxic, No Acute Distress, Chronically Ill - Head Exam Head Exam: ATRAUMATIC, NORMOCEPHALIC - ENT Exam ENT Exam: Mucous Membranes Moist - Respiratory Exam Respiratory Exam: NORMAL BREATHING PATTERN - Cardiovascular Exam Cardiovascular Exam: +S1, +S2 - GI/Abdominal Exam GI & Abdominal Exam: Soft, Tenderness. absent: Distended, Firm, Guarding, Rebound, Rigid Additional comments: diffuse mild to moderate tenderness worst in the LLQ with no rebound guarding or rigidity - Extremities Exam Extremities exam: Positive for: pedal pulses present. Negative for: calf tenderness, pedal edema - Back Exam Back exam: CVA tenderness (L), CVA tenderness (R) - Neurological Exam Neurological exam: Alert, Oriented x3 - Psychiatric Exam Psychiatric exam: Normal Affect, Normal Mood - Skin Skin Exam: Dry, Intact, Normal Color, Warm Results - Vital Signs Recent Vital Signs: Last Vital Signs Temp 98.5 F 05/14/18 02:31 Pulse 100 H 05/14/18 02:31 Resp 18 05/14/18 02:31 BP 156/108 H 05/14/18 02:31 Pulse Ox 99 05/14/18 02:48 - Labs Result Diagrams: 05/13/18 23:32 05/13/18 23:32 Labs: Laboratory Results - last 24 hr 05/13/18 05/13/18 05/13/18 23:32 23:32 23:46 WBC 16.2 H D RBC 4.41 Hgb 12.4 Hct 36.4 MCV 82.6 D MCH 28.0 MCHC 34.0 RDW 18.9 H Plt Count 521 H D MPV 6.9 L Neut % (Auto) 57.5 Lymph % (Auto) 36.5 [place] % (Auto) 4.3 Eos % (Auto) 0.9 Baso % (Auto) 0.8 Neut # (Auto) 9.3 H Lymph # (Auto) 5.9 H [place] # (Auto) 0.7 Eos # (Auto) 0.1 Baso # (Auto) 0.1 Sodium 138 Potassium 3.2 L Chloride 101 Carbon Dioxide 23 Anion Gap 17 BUN 7 Creatinine 0.7 Est GFR ( Amer) > 60 Est GFR (Non-Af Amer) > 60 Random Glucose 127 H Calcium 9.9 Total Bilirubin 0.5 AST 38 H ALT 43 Alkaline Phosphatase 134 H Total Protein 7.8 Albumin 4.5 Globulin 3.3 Albumin/Globulin Ratio 1.4 Lipase 109 Urine Color Yellow Urine Clarity Hazy Urine pH 7.0 Ur Specific [place] 1.010 Urine Protein Negative Urine Glucose (UA) Normal Urine Ketones Negative Urine Blood Negative Urine Nitrate Negative Urine Bilirubin Negative Urine Urobilinogen Normal Ur Leukocyte Esterase Trace H Urine WBC (Auto) 2 Urine RBC (Auto) 1 Ur Squamous Epith Cells 30 H Urine Bacteria Few H Urine HCG, Qual Negative Urine Opiates Screen Urine Methadone Screen Ur Barbiturates Screen Ur Phencyclidine Scrn Ur Amphetamines Screen U Oth Cocaine Metabols U Cannabinoids Screen 05/14/18 02:43 WBC RBC Hgb Hct MCV MCH MCHC RDW Plt Count MPV Neut % (Auto) Lymph % (Auto) [place] % (Auto) Eos % (Auto) Baso % (Auto) Neut # (Auto) Lymph # (Auto) [place] # (Auto) Eos # (Auto) Baso # (Auto) Sodium Potassium Chloride Carbon Dioxide Anion Gap BUN Creatinine Est GFR ( Amer) Est GFR (Non-Af Amer) Random Glucose Calcium Total Bilirubin AST ALT Alkaline Phosphatase Total Protein Albumin Globulin Albumin/Globulin Ratio Lipase Urine Color Urine Clarity Urine pH Ur Specific [place] Urine Protein Urine Glucose (UA) Urine Ketones Urine Blood Urine Nitrate Urine Bilirubin Urine Urobilinogen Ur Leukocyte Esterase Urine WBC (Auto) Urine RBC (Auto) Ur Squamous Epith Cells Urine Bacteria Urine HCG, Qual Urine Opiates Screen Negative Urine Methadone Screen Negative Ur Barbiturates Screen Negative Ur Phencyclidine Scrn Negative Ur Amphetamines Screen Negative U Oth Cocaine Metabols Negative U Cannabinoids Screen Negative Assessment & Plan - Assessment and Plan (Free Text) Assessment: 37 yr old female s/p gastric bypass 4 years ago with findings on CT scan concerning for SBO Plan: - make pt NPO except meds, bowel rest - IVF LR @ 150 - pain control, control is difficult in this patient due to her extensive home narcotic use, patient recieved 18 mg of Morphine in ED, discussed with patient that her pain will be difficult to control d/t narcotic use, she verbalized understanding. - will monitor for flatus and BM or increasing N/V - possible NGT is N/V increases/ persists - begin zosyn and flagyl - will consult Dr. Denise for Bariatric specialty recs - discussed plan with Dr. Harley, all further recs per him Nella Lee, PGY 1 - Date & Time Date: 05/14/18 Time: 02:30 <Gómez Harley B - Last Filed: 05/18/18 16:32> Meds - Medications Medications: Current Medications Dextrose (Dextrose 50% Inj) 0 ml IV STAT PRN; Protocol PRN Reason: Hypoglycemia Protocol Last Admin: 05/16/18 23:40 Dose: 50 ml Dextrose (Glutose 15) 0 gm PO ONCE PRN; Protocol PRN Reason: Hypoglycemia Protocol Glucagon (Glucagen Diagnostic Kit) 0 mg IM STAT PRN; Protocol PRN Reason: Hypoglycemia Protocol Heparin Sodium (Porcine) (Heparin) 5,000 units SC Q12 [facility] Last Admin: 05/18/18 10:13 Dose: 5,000 units Hydromorphone HCl (Dilaudid) 1 mg IVP Q4H [facility] Last Admin: 05/18/18 14:57 Dose: 1 mg Dextrose (Dextrose 5% In Water 1000 Ml) 1,000 mls @ 0 mls/hr IV .Q0M PRN; Protocol; Per Protocol PRN Reason: Hypoglycemia Protocol Metronidazole (Flagyl) 500 mg in 100 mls @ 100 mls/hr IVPB Q8H [facility] PRN Reason: Protocol Last Admin: 05/18/18 11:47 Dose: 100 mls/hr Meropenem 1 gm/ Sodium (Chloride) 100 mls @ 100 mls/hr IVPB Q8H [facility] PRN Reason: Protocol Last Admin: 05/18/18 11:02 Dose: 100 mls/hr Aztreonam 2 gm/ Sodium (Chloride) 100 mls @ 100 mls/hr IVPB Q8H [facility] PRN Reason: Protocol Last Admin: 05/18/18 14:31 Dose: 100 mls/hr Multivitamins/Vitamin C 10 ml/Chromium/Copper/Manganese/Zinc 1 ml/ Amino Acids 1,011 mls @ 42 mls/hr IV .Q24H ONE Stop: 05/18/18 17:59 Last Admin: 05/17/18 17:25 Dose: 42 mls/hr Sodium Chloride 35 meq/Potassium Phosphate 30 mmole/Magnesium Sulfate 6 meq/ Calcium Chloride 330 mg/Chromium/Copper/Manganese/Zinc 1 ml/ Multivitamins/ Vitamin C 10 ml/ Heparin Sodium ( Porcine) 1,000 units/ Amino Acids 1,035.5278 mls @ 42 mls/hr IV .Q24H ONE Stop: 05/19/18 17:59 Vancomycin/Sodium Chloride (Vancomycin 1 Gm/Ns 200 Ml) 1 gm in 200 mls @ 133.333 mls/hr IVPB Q12H [facility] PRN Reason: Protocol Stop: 05/23/18 17:01 Ipratropium [place] (Atrovent) 0.5 mg IH RQ6 [facility] Last Admin: 05/18/18 14:00 Dose: 0.5 mg Lorazepam (Ativan) 0.5 mg IVP Q12 PRN PRN Reason: Anxiety Last Admin: 05/18/18 10:29 Dose: 0.5 mg Morphine Sulfate (Morphine) 1 mg IVP Q4 PRN PRN Reason: Pain, severe (8-10) Last Admin: 05/18/18 15:51 Dose: 1 mg Nicotine (Nicoderm Cq) 1 patch TD DAILY [facility] Last Admin: 05/18/18 10:08 Dose: 1 patch Ondansetron HCl (Zofran Inj) 4 mg IVP Q4 PRN PRN Reason: Nausea/Vomiting Pantoprazole Sodium (Protonix Inj) 40 mg IVP Q12H [facility] Last Admin: 05/18/18 09:15 Dose: 40 mg Results - Vital Signs Recent Vital Signs: Last Vital Signs Temp 100.5 F H 05/18/18 12:00 Pulse 128 H 05/18/18 14:03 Resp 19 05/18/18 12:01 BP 152/92 H 05/18/18 14:00 Pulse Ox 98 05/18/18 12:01 - Labs Result Diagrams: 05/18/18 15:39 05/18/18 06:25 Labs: Laboratory Results - last 24 hr 05/17/18 05/18/18 05/18/18 17:50 00:41 05:32 WBC RBC Hgb Hct MCV MCH MCHC RDW Plt Count MPV Neut % (Auto) Lymph % (Auto) [place] % (Auto) Eos % (Auto) Baso % (Auto) Neut # (Auto) Lymph # (Auto) [place] # (Auto) Eos # (Auto) Baso # (Auto) Neutrophils % (Manual) Band Neutrophils % Lymphocytes % (Manual) Monocytes % (Manual) Platelet Estimate RBC Morphology PT INR Sodium Potassium Chloride Carbon Dioxide Anion Gap BUN Creatinine Est GFR ( Amer) Est GFR (Non-Af Amer) POC Glucose (mg/dL) 91 182 H 122 H Random Glucose Calcium Phosphorus Magnesium Total Bilirubin AST ALT Alkaline Phosphatase Total Protein Albumin Globulin Albumin/Globulin Ratio 05/18/18 05/18/18 05/18/18 06:25 06:25 06:25 WBC 15.8 H RBC 2.99 L Hgb 8.6 L Hct 25.8 L MCV 86.5 MCH 28.8 MCHC 33.3 RDW 17.2 H Plt Count 135 MPV 7.1 L Neut % (Auto) 84.7 H Lymph % (Auto) 8.3 L [place] % (Auto) 6.0 Eos % (Auto) 0.7 Baso % (Auto) 0.3 Neut # (Auto) 13.4 H Lymph # (Auto) 1.3 [place] # (Auto) 0.9 H Eos # (Auto) 0.1 Baso # (Auto) 0.0 Neutrophils % (Manual) 79 H Band Neutrophils % 12 H* Lymphocytes % (Manual) 6 L Monocytes % (Manual) 3 Platelet Estimate Normal RBC Morphology Normal PT 14.3 H INR 1.3 Sodium 140 Potassium 3.0 L Chloride 106 Carbon Dioxide 31 H Anion Gap 6 L BUN 7 Creatinine 0.5 L Est GFR ( Amer) > 60 Est GFR (Non-Af Amer) > 60 POC Glucose (mg/dL) Random Glucose 117 H Calcium 7.1 L Phosphorus 1.9 L Magnesium 1.8 Total Bilirubin 2.5 H AST 68 H D ALT 133 H D Alkaline Phosphatase 118 Total Protein 4.3 L Albumin 2.2 L Globulin 2.1 L Albumin/Globulin Ratio 1.1 05/18/18 05/18/18 11:27 15:39 WBC 15.0 H RBC 3.14 L Hgb 9.0 L Hct 26.7 L MCV 85.2 MCH 28.6 MCHC 33.6 RDW 16.6 H Plt Count 150 MPV 7.1 L Neut % (Auto) Lymph % (Auto) [place] % (Auto) Eos % (Auto) Baso % (Auto) Neut # (Auto) Lymph # (Auto) [place] # (Auto) Eos # (Auto) Baso # (Auto) Neutrophils % (Manual) Band Neutrophils % Lymphocytes % (Manual) Monocytes % (Manual) Platelet Estimate RBC Morphology PT INR Sodium Potassium Chloride Carbon Dioxide Anion Gap BUN Creatinine Est GFR ( Amer) Est GFR (Non-Af Amer) POC Glucose (mg/dL) 139 H Random Glucose Calcium Phosphorus Magnesium Total Bilirubin AST ALT Alkaline Phosphatase Total Protein Albumin Globulin Albumin/Globulin Ratio Attending/Attestation - Attestation I have personally seen and examined this patient.: Yes I have fully participated in the care of the patient.: Yes I have reviewed all pertinent clinical information: Yes Notes (Text): Pt was seen and examined at bedside Agree with above note and assessment Pt with severe abdominal pain and vomiting Abdomen : Soft, Tender, Rebound tenderness present Pt has bloody BM Labs and radiology reviewed Ass: Internal hernia with Mesenteric ischemia Plan: OR for Exp Lap and Reduction of internal hernia Possible Bowel resection IV antibiotics Consent NPO, IVF Plan d.w pt in detail Risk and benefit explained in detail.
--- NOTE | 2018-05-14 03:33 | CP.PCM.HP ---
<Beverly Lee - Last Filed: 05/14/18 04:14> History of Present Illness - History of Present Illness History of Present Illness: 37 yo F w/ PMHx of chronic abdominal pain and recurrent SBOs s/p gastric bypass( 2013), asthma, HTN, HLD, DM2 presents to ED with severe abdominal pain x1 day. Pt states the pain is isolated to the R/L UQ, radiates bilaterally around to her back, and not associated w/ food. Pt states she has had 3 episodes of NBNB emesis, denies chest pain, SOB, diarrhea, constipation; pt states she has been able to pass flatus. Patient admits that she only began having these episodes of abdominal pain requiring frequent hospitalizations after her gastric bypass surgery 4 yrs ago. Present on Admission - Present on Admission Any Indicators Present on Admission: No Review of Systems - Constitutional Constitutional: Anorexia - Cardiovascular Cardiovascular: absent: Chest Pain, Dyspnea, Leg Edema - Respiratory Respiratory: absent: Cough, Dyspnea, Wheezing, Chest Congestion - Gastrointestinal Gastrointestinal: Abdominal Pain, Vomiting. absent: Diarrhea - Genitourinary Genitourinary: absent: Dysuria - Psychiatric Psychiatric: Anxiety Past Patient History - Infectious Disease Hx of Infectious Diseases: None - Past Medical History & Family History Past Medical History?: Yes - Past Social History Smoking Status: Light Smoker < 10 Cigarettes Daily - CARDIAC Hx Hypercholesterolemia: Yes Hx Hypertension: Yes - PULMONARY Hx Asthma: Yes Hx Sleep Apnea: Yes (mild) - RENAL Hx Kidney Stones: Yes - ENDOCRINE/METABOLIC Hx Hypothyroidism: Yes - MUSCULOSKELETAL/RHEUMATOLOGICAL Hx Arthritis: Yes Hx Fractures: Yes (right middle finger, right foot) - GASTROINTESTINAL Hx Gastritis: Yes - PSYCHIATRIC Hx Anxiety: Yes Hx Substance Use: No - SURGICAL HISTORY Hx Gastric Bypass Surgery: Yes (2013) - ANESTHESIA Hx Anesthesia: Yes Hx Anesthesia Reactions: No Hx Malignant Hyperthermia: No Meds Allergies/Adverse Reactions: Allergies Allergy/AdvReac Type Severity Reaction Status Date / Time moxifloxacin [From Avelox] Allergy Severe RASH Verified 05/13/18 23:21 Physical Exam - Constitutional Appears: Well - Head Exam Head Exam: ATRAUMATIC, NORMAL INSPECTION, NORMOCEPHALIC - Eye Exam Eye Exam: EOMI, Normal appearance - ENT Exam ENT Exam: Mucous Membranes Moist - Respiratory Exam Respiratory Exam: Clear to Auscultation Bilateral, NORMAL BREATHING PATTERN - Cardiovascular Exam Cardiovascular Exam: REGULAR RHYTHM, +S1, +S2 - GI/Abdominal Exam GI & Abdominal Exam: Normal Bowel Sounds, Soft, Tenderness. absent: Diminished Bowel Sounds - Extremities Exam Extremities exam: Positive for: normal capillary refill, normal inspection. Negative for: calf tenderness, pedal edema - Back Exam Back exam: tenderness (diffuse) - Neurological Exam Neurological exam: Alert, Oriented x3 - Psychiatric Exam Psychiatric exam: Anxious - Skin Skin Exam: Normal Color Results - Vital Signs Recent Vital Signs: Last Vital Signs Temp 98.5 F 05/14/18 02:31 Pulse 100 H 05/14/18 02:31 Resp 18 05/14/18 02:31 BP 156/108 H 05/14/18 02:31 Pulse Ox 99 05/14/18 02:48 - Labs Result Diagrams: 05/13/18 23:32 05/13/18 23:32 Labs: Laboratory Results - last 24 hr 05/13/18 05/13/18 05/13/18 23:32 23:32 23:46 WBC 16.2 H D RBC 4.41 Hgb 12.4 Hct 36.4 MCV 82.6 D MCH 28.0 MCHC 34.0 RDW 18.9 H Plt Count 521 H D MPV 6.9 L Neut % (Auto) 57.5 Lymph % (Auto) 36.5 [place] % (Auto) 4.3 Eos % (Auto) 0.9 Baso % (Auto) 0.8 Neut # (Auto) 9.3 H Lymph # (Auto) 5.[address] [place] # (Auto) 0.7 Eos # (Auto) 0.1 Baso # (Auto) 0.1 Sodium 138 Potassium 3.2 L Chloride 101 Carbon Dioxide 23 Anion Gap 17 BUN 7 Creatinine 0.7 Est GFR ( Amer) > 60 Est GFR (Non-Af Amer) > 60 Random Glucose 127 H Calcium 9.9 Total Bilirubin 0.5 AST 38 H ALT 43 Alkaline Phosphatase 134 H Total Protein 7.8 Albumin 4.5 Globulin 3.3 Albumin/Globulin Ratio 1.4 Lipase 109 Urine Color Yellow Urine Clarity Hazy Urine pH 7.0 Ur Specific [place] 1.010 Urine Protein Negative Urine Glucose (UA) Normal Urine Ketones Negative Urine Blood Negative Urine Nitrate Negative Urine Bilirubin Negative Urine Urobilinogen Normal Ur Leukocyte Esterase Trace H Urine WBC (Auto) 2 Urine RBC (Auto) 1 Ur Squamous Epith Cells 30 H Urine Bacteria Few H Urine HCG, Qual Negative Urine Opiates Screen Urine Methadone Screen Ur Barbiturates Screen Ur Phencyclidine Scrn Ur Amphetamines Screen U Oth Cocaine Metabols U Cannabinoids Screen 05/14/18 02:43 WBC RBC Hgb Hct MCV MCH MCHC RDW Plt Count MPV Neut % (Auto) Lymph % (Auto) [place] % (Auto) Eos % (Auto) Baso % (Auto) Neut # (Auto) Lymph # (Auto) [place] # (Auto) Eos # (Auto) Baso # (Auto) Sodium Potassium Chloride Carbon Dioxide Anion Gap BUN Creatinine Est GFR ( Amer) Est GFR (Non-Af Amer) Random Glucose Calcium Total Bilirubin AST ALT Alkaline Phosphatase Total Protein Albumin Globulin Albumin/Globulin Ratio Lipase Urine Color Urine Clarity Urine pH Ur Specific [place] Urine Protein Urine Glucose (UA) Urine Ketones Urine Blood Urine Nitrate Urine Bilirubin Urine Urobilinogen Ur Leukocyte Esterase Urine WBC (Auto) Urine RBC (Auto) Ur Squamous Epith Cells Urine Bacteria Urine HCG, Qual Urine Opiates Screen Negative Urine Methadone Screen Negative Ur Barbiturates Screen Negative Ur Phencyclidine Scrn Negative Ur Amphetamines Screen Negative U Oth Cocaine Metabols Negative U Cannabinoids Screen Negative Assessment & Plan - Assessment and Plan (Free Text) Assessment: 37 yo F admitted w/ recurrent SBO 1. SBO -NPO -D51/2 + 40K @150/hr -sx consult Asthma -albuterol 2 puffs q6 PRN HTN -initially hypertensive, but WNL now -monitor DM2 -glucose WNL, 127 Hypokalemia -K 3.2 -40mEG -monitor and replete as needed Anxiety -xanax 1mg TID PRN Dispo: d/c home when stable Decision To Admit - Pt Status Changed To: Hospital Disposition Of: Observation - . Bed Request Type: Telemetry <Brian Roche - Last Filed: 05/14/18 06:39> Results - Vital Signs Recent Vital Signs: Last Vital Signs Temp 98.4 F 05/14/18 03:42 Pulse 129 H 05/14/18 04:00 Resp 20 05/14/18 04:00 BP 128/89 05/14/18 03:42 Pulse Ox 99 05/14/18 05:54 - Labs Result Diagrams: 05/13/18 23:32 05/13/18 23:32 Labs: Laboratory Results - last 24 hr 05/13/18 05/13/18 05/13/18 23:32 23:32 23:46 WBC 16.2 H D RBC 4.41 Hgb 12.4 Hct 36.4 MCV 82.6 D MCH 28.0 MCHC 34.0 RDW 18.9 H Plt Count 521 H D MPV 6.9 L Neut % (Auto) 57.5 Lymph % (Auto) 36.5 [place] % (Auto) 4.3 Eos % (Auto) 0.9 Baso % (Auto) 0.8 Neut # (Auto) 9.3 H Lymph # (Auto) 5.[address] [place] # (Auto) 0.7 Eos # (Auto) 0.1 Baso # (Auto) 0.1 Sodium 138 Potassium 3.2 L Chloride 101 Carbon Dioxide 23 Anion Gap 17 BUN 7 Creatinine 0.7 Est GFR ( Amer) > 60 Est GFR (Non-Af Amer) > 60 Random Glucose 127 H Calcium 9.9 Total Bilirubin 0.5 AST 38 H ALT 43 Alkaline Phosphatase 134 H Total Protein 7.8 Albumin 4.5 Globulin 3.3 Albumin/Globulin Ratio 1.4 Lipase 109 Urine Color Yellow Urine Clarity Hazy Urine pH 7.0 Ur Specific [place] 1.010 Urine Protein Negative Urine Glucose (UA) Normal Urine Ketones Negative Urine Blood Negative Urine Nitrate Negative Urine Bilirubin Negative Urine Urobilinogen Normal Ur Leukocyte Esterase Trace H Urine WBC (Auto) 2 Urine RBC (Auto) 1 Ur Squamous Epith Cells 30 H Urine Bacteria Few H Urine HCG, Qual Negative Urine Opiates Screen Urine Methadone Screen Ur Barbiturates Screen Ur Phencyclidine Scrn Ur Amphetamines Screen U Benzodiazepines Scrn U Oth Cocaine Metabols U Cannabinoids Screen 05/14/18 02:43 WBC RBC Hgb Hct MCV MCH MCHC RDW Plt Count MPV Neut % (Auto) Lymph % (Auto) [place] % (Auto) Eos % (Auto) Baso % (Auto) Neut # (Auto) Lymph # (Auto) [place] # (Auto) Eos # (Auto) Baso # (Auto) Sodium Potassium Chloride Carbon Dioxide Anion Gap BUN Creatinine Est GFR ( Amer) Est GFR (Non-Af Amer) Random Glucose Calcium Total Bilirubin AST ALT Alkaline Phosphatase Total Protein Albumin Globulin Albumin/Globulin Ratio Lipase Urine Color Urine Clarity Urine pH Ur Specific [place] Urine Protein Urine Glucose (UA) Urine Ketones Urine Blood Urine Nitrate Urine Bilirubin Urine Urobilinogen Ur Leukocyte Esterase Urine WBC (Auto) Urine RBC (Auto) Ur Squamous Epith Cells Urine Bacteria Urine HCG, Qual Urine Opiates Screen Negative Urine Methadone Screen Negative Ur Barbiturates Screen Negative Ur Phencyclidine Scrn Negative Ur Amphetamines Screen Negative U Benzodiazepines Scrn Positive U Oth Cocaine Metabols Negative U Cannabinoids Screen Negative Assessment & Plan - Date & Time Date: 05/14/18 (I have seen and examined the patient. I agree with the findings and plan of care as documented by Dr. Barrett. Patient with SBO. Consult to surgery. History of hypertension and asthma. Continue home meds. Hypertension initially uncontrolled in ED. Hydralazine given. Pain meds given. Pain may be contributing to hypertensive episodes. Monitor for acute changes.) Time: 06:37 Attending/Attestation - Attestation I have personally seen and examined this patient.: Yes I have fully participated in the care of the patient.: Yes I have reviewed all pertinent clinical information: Yes
[2018-05-14 03:45] LABS: BENZODIAZEPINES, UR POSITIVE (NEGATIVE)
[2018-05-14] MEDS ORDERED: Potassium Chl 40 mEq in D5-1/2 1,000 ML IV SCH ×2 (03:45→04:00)
[2018-05-14] MEDS ORDERED: Albuterol HFA 90 mcg/actuation (8 g) INH PRN (04:01)
[2018-05-14] MEDS ORDERED: Fluticasone-Salmeterol 500-50mcg Diskus INH SCH (08:00)
[2018-05-14] MEDS: Lactated Ringer's 1,000 ML IV SCH ×3 (08:09→22:42)
--- NOTE | 2018-05-14 09:40 | RAD ---
Date of service: 05/14/2018 HISTORY: abd pain, r/o pulm path.. poss or COMPARISON: No prior. FINDINGS: LUNGS: Potential diminished pulmonary volume versus technical differences in positioning. No acute infiltrate bilaterally. PLEURA: No significant pleural effusion identified, no pneumothorax apparent. CARDIOVASCULAR: Normal. OSSEOUS STRUCTURES: No significant abnormalities. VISUALIZED UPPER ABDOMEN: Normal. OTHER FINDINGS: None. IMPRESSION: No infiltrate, pleural effusion or pneumothorax bilaterally. Diminished inspiratory volume question. No acute cardio vascular disease.
[2018-05-14] MEDS: Piperacillin/Tazobact 3.375 GM in Sodium Chloride 100 ML IVPB SCH ×3 (11:04→20:31)
--- NOTE | 2018-05-14 11:49 | CP.PCM.PN ---
Subjective - Date & Time of Evaluation Date of Evaluation: 05/14/18 Time of Evaluation: 07:00 - Subjective Subjective: PGY2- Progress Note for Dr. Turk Patient seen and examined at bedside and in acute distress. Patient writhing in pain. Patient had multiple episodes of bloody bowel movements. Patient says she has never had a bloody bowel movement in the past and the first episode was this morning. Patient has never had a colonoscopy. Patient had an endoscopy in 2013 prior to her gastric bypass, but has not had one since. Patient has not been following up with GI. Patient denies nausea and vomiting. Patient admits to 07/20 diffuse abdominal pain. Objective - Vital Signs/Intake and Output Vital Signs (last 24 hours): Temp Pulse Resp BP Pulse Ox 98.3 F 134 H 20 137/95 H 99 05/14/18 04:05 05/14/18 04:08 05/14/18 04:05 05/14/18 04:05 05/14/18 05:54 - Medications Medications: Current Medications Albuterol (Ventolin Hfa 90 Mcg/Actuation (8 G)) 2 puff INH RQ6 PRN PRN Reason: Wheezing Alprazolam (Xanax) 1 mg PO TID PRN PRN Reason: Anxiety Famotidine (Pepcid) 20 mg IVP Q12 [facility] Last Admin: 05/14/18 11:04 Dose: 20 mg Fentanyl (Duragesic) 1 patch TD Q72H [facility] Last Admin: 05/14/18 11:02 Dose: 1 patch Lactated Ringer's (Lactated Ringer's) 1,000 mls @ 150 mls/hr IV .Q6H40M [facility] Last Admin: 05/14/18 08:09 Dose: 150 mls/hr Piperacillin Sod/Tazobactam (Sod 3.375 gm/ Sodium Chloride) 100 mls @ 200 mls/ hr IVPB Q6H [facility] PRN Reason: Protocol Last Admin: 05/14/18 11:04 Dose: 200 mls/hr Ketorolac Tromethamine (Toradol) 30 mg IVP Q6 PRN PRN Reason: Pain, severe (8-10) Metronidazole (Flagyl) 500 mg PO Q8H [facility] PRN Reason: Protocol Last Admin: 05/14/18 11:04 Dose: 500 mg Morphine Sulfate (Morphine) 2 mg IVP Q6 [facility] Ondansetron HCl (Zofran Inj) 4 mg IVP Q4 PRN PRN Reason: Nausea/Vomiting Pneumococcal Polyvalent Vaccine (Pneumovax 23 Vaccine) 0.5 ml IM .ONCE ONE Stop: 05/16/18 14:01 Fluticasone/Salmeterol (Advair Diskus 500/50) 1 puff INH RQ12 [facility] Last Admin: 05/14/18 11:09 Dose: 1 puff - Labs Labs: 05/13/18 23:32 05/13/18 23:32 - Constitutional Appears: In Acute Distress - Head Exam Head Exam: ATRAUMATIC, NORMAL INSPECTION, NORMOCEPHALIC - Eye Exam Eye Exam: EOMI, Normal appearance - ENT Exam ENT Exam: Mucous Membranes Moist - Respiratory Exam Respiratory Exam: Clear to Ausculation Bilateral, NORMAL BREATHING PATTERN - Cardiovascular Exam Cardiovascular Exam: Tachycardia, REGULAR RHYTHM, +S1, +S2 - GI/Abdominal Exam GI & Abdominal Exam: Soft, Tenderness, Hyperactive Bowel Sounds. absent: Firm, Rigid - Rectal Exam Rectal Exam: Bloody Stool. absent: Hemorrhoids - Extremities Exam Extremities Exam: absent: Pedal Edema, Tenderness - Back Exam Back Exam: NORMAL INSPECTION - Neurological Exam Neurological Exam: Alert, Awake, Oriented x3 - Psychiatric Exam Psychiatric exam: Normal Affect, Normal Mood - Skin Skin Exam: Intact, Pallor, Warm
[2018-05-14 12:07] LABS: BASO # 0.1 K/uL (0.0-0.2); BASO % 0.2 % (0.0-2.0); EOS # 0.1 K/uL (0.0-0.7); EOS % 0.2 % (0.0-4.0); HEMOGLOBIN 11.8 g/dL (11.0-16.0); LYMPH # 3.5 K/uL (1.0-4.3); LYMPH % 11.7 % (20.0-40.0); MEAN CELL VOLUME 83.1 fL (81.0-99.0); MEAN CORPUSCULAR HEMOGLOBIN 27.2 pg (27.0-31.0); MEAN CORPUSCULAR HGB CONC 32.7 g/dL (33.0-37.0); MEAN PLATELET VOLUME 7.3 fL (7.2-11.7); MONO # 1.1 K/uL (0.0-0.8); MONO % 3.6 % (0.0-10.0); NEUT # 25.1 K/uL (1.8-7.0); NEUT % 84.3 % (50.0-75.0); PLATELET COUNT 581 K/uL (130-400); RBC 4.35 Mil/uL (3.80-5.20); RED CELL DISTRIBUTION WIDTH 18.5 % (11.5-14.5)
[2018-05-14 12:08] LABS: WHITE BLOOD COUNT 29.8 K/uL (4.8-10.8)
[2018-05-14 12:16] LABS: INR 1.1; PROTHROMBIN TIME 12.2 SECONDS (9.7-12.2)
[2018-05-14 12:34] LABS: ANISOCYTOSIS SLIGHT; BANDS 5 % (0-2); BASOPHIL 1 % (0-2); LYMPHOCYTE 14 % (20-40); MONOCYTE 6 % (0-10); NEUTROPHIL 74 % (50-75); PLATELET ESTIMATE SLIGHTLY INCREASED (NORMAL); POIKILOCYTOSIS SLIGHT; TOTAL CELLS COUNTED 100
[2018-05-14 12:35] LABS: HYPOCHROMIC SLIGHT; PLATELET CLUMPS PRESENT
--- NOTE | 2018-05-14 12:35 | CP.PCM.CON ---
History of Present Illness - History of Present Illness History of Present Illness: 37 yo female h/o obesity, bariatric surgery 2014, HTN.,CAD, ASTHMA. nOW 1 DAY ABdom pain- significant lower abdomen. Today- worse and severe abdom pain. Today developed BRBPR significant amount. Has sl nausea. Review of Systems - Constitutional Constitutional: Weight Loss, Weakness. absent: Headache - EENT Eyes: absent: Photophobia - Cardiovascular Cardiovascular: absent: Chest Pain, Dyspnea - Respiratory Respiratory: absent: Dyspnea, Hemoptysis, Wheezing - Gastrointestinal Gastrointestinal: Abdominal Pain, Bloating, Hematochezia, Nausea. absent: Diarrhea, Dysphagia, Hematemesis, Loose Stools, Melena, Vomiting Additional comments: lower and mid abdom pain- med to severe. - Genitourinary Genitourinary: absent: Hematuria - Musculoskeletal Musculoskeletal: absent: Muscle Cramps - Integumentary Integumentary: absent: Jaundice - Neurological Neurological: absent: Convulsions, Syncope - Psychiatric Psychiatric: absent: Hallucinations Past Patient History - Infectious Disease Hx of Infectious Diseases: None - Past Medical History & Family History Past Medical History?: Yes - Past Social History Smoking Status: Light Smoker < 10 Cigarettes Daily - CARDIAC Hx Hypercholesterolemia: Yes Hx Hypertension: Yes - PULMONARY Hx Asthma: Yes Hx Sleep Apnea: Yes (mild) - NEUROLOGICAL Hx Neurological Disorder: No - HEENT Hx HEENT Problems: No - RENAL Hx Kidney Stones: Yes - ENDOCRINE/METABOLIC Hx Hypothyroidism: Yes - HEMATOLOGICAL/ONCOLOGICAL Hx Blood Disorders: No - INTEGUMENTARY Hx Dermatological Problems: No - MUSCULOSKELETAL/RHEUMATOLOGICAL Hx Arthritis: Yes Hx Fractures: Yes (right middle finger, right foot) - GASTROINTESTINAL Hx Gastritis: Yes - GENITOURINARY/GYNECOLOGICAL Hx Genitourinary Disorders: No - PSYCHIATRIC Hx Anxiety: Yes Hx Substance Use: No - SURGICAL HISTORY Hx Gastric Bypass Surgery: Yes (2013) - ANESTHESIA Hx Anesthesia: Yes Hx Anesthesia Reactions: No Hx Malignant Hyperthermia: No Meds Allergies/Adverse Reactions: Allergies Allergy/AdvReac Type Severity Reaction Status Date / Time moxifloxacin [From Avelox] Allergy Severe RASH Verified 05/13/18 23:21 - Medications Medications: Current Medications Albuterol (Ventolin Hfa 90 Mcg/Actuation (8 G)) 2 puff INH RQ6 PRN PRN Reason: Wheezing Alprazolam (Xanax) 1 mg PO TID PRN PRN Reason: Anxiety Famotidine (Pepcid) 20 mg IVP Q12 [facility] Last Admin: 05/14/18 11:04 Dose: 20 mg Fentanyl (Duragesic) 1 patch TD Q72H [facility] Last Admin: 05/14/18 11:02 Dose: 1 patch Lactated Ringer's (Lactated Ringer's) 1,000 mls @ 150 mls/hr IV .Q6H40M [facility] Last Admin: 05/14/18 08:09 Dose: 150 mls/hr Piperacillin Sod/Tazobactam (Sod 3.375 gm/ Sodium Chloride) 100 mls @ 200 mls/ hr IVPB Q6H [facility] PRN Reason: Protocol Last Admin: 05/14/18 11:04 Dose: 200 mls/hr Pantoprazole Sodium 80 mg/ (Sodium Chloride) 100 mls @ 10 mls/hr IVP .Q10H [facility] PRN Reason: 8 MG/HR Ketorolac Tromethamine (Toradol) 30 mg IVP Q6 PRN PRN Reason: Pain, severe (8-10) Metronidazole (Flagyl) 500 mg PO Q8H [facility] PRN Reason: Protocol Last Admin: 05/14/18 11:04 Dose: 500 mg Morphine Sulfate (Morphine) 2 mg IVP Q6 [facility] Ondansetron HCl (Zofran Inj) 4 mg IVP Q4 PRN PRN Reason: Nausea/Vomiting Pneumococcal Polyvalent Vaccine (Pneumovax 23 Vaccine) 0.5 ml IM .ONCE ONE Stop: 05/16/18 14:01 Fluticasone/Salmeterol (Advair Diskus 500/50) 1 puff INH RQ12 [facility] Last Admin: 05/14/18 11:09 Dose: 1 puff Physical Exam - Constitutional Appears: In Acute Distress - Neck Exam Neck exam: Negative for: Tenderness - Respiratory Exam Respiratory Exam: Clear to Auscultation Bilateral - Cardiovascular Exam Cardiovascular Exam: Tachycardia - GI/Abdominal Exam GI & Abdominal Exam: Distended, Normal Bowel Sounds, Tenderness. absent: Mass, Rigid - Extremities Exam Extremities exam: Negative for: calf tenderness - Neurological Exam Neurological exam: Alert, Oriented x3 - Psychiatric Exam Psychiatric exam: Anxious - Skin Skin Exam: Dry Results - Vital Signs Recent Vital Signs: Last Vital Signs Temp 98.3 F 05/14/18 04:05 Pulse 134 H 05/14/18 04:08 Resp 20 05/14/18 04:05 BP 137/95 H 05/14/18 04:05 Pulse Ox 99 05/14/18 05:54 - Labs Result Diagrams: 05/14/18 11:56 05/13/18 23:32 Labs: Laboratory Results - last 24 hr 05/13/18 05/13/18 05/13/18 23:32 23:32 23:46 WBC 16.2 H D RBC 4.41 Hgb 12.4 Hct 36.4 MCV 82.6 D MCH 28.0 MCHC 34.0 RDW 18.9 H Plt Count 521 H D MPV 6.9 L Neut % (Auto) 57.5 Lymph % (Auto) 36.5 [place] % (Auto) 4.3 Eos % (Auto) 0.9 Baso % (Auto) 0.8 Neut # (Auto) 9.3 H Lymph # (Auto) 5.9 H [place] # (Auto) 0.7 Eos # (Auto) 0.1 Baso # (Auto) 0.1 PT INR APTT Sodium 138 Potassium 3.2 L Chloride 101 Carbon Dioxide 23 Anion Gap 17 BUN 7 Creatinine 0.7 Est GFR ( Amer) > 60 Est GFR (Non-Af Amer) > 60 Random Glucose 127 H Calcium 9.9 Total Bilirubin 0.5 AST 38 H ALT 43 Alkaline Phosphatase 134 H Total Protein 7.8 Albumin 4.5 Globulin 3.3 Albumin/Globulin Ratio 1.4 Lipase 109 Urine Color Yellow Urine Clarity Hazy Urine pH 7.0 Ur Specific [place] 1.010 Urine Protein Negative Urine Glucose (UA) Normal Urine Ketones Negative Urine Blood Negative Urine Nitrate Negative Urine Bilirubin Negative Urine Urobilinogen Normal Ur Leukocyte Esterase Trace H Urine WBC (Auto) 2 Urine RBC (Auto) 1 Ur Squamous Epith Cells 30 H Urine Bacteria Few H Urine HCG, Qual Negative Urine Opiates Screen Urine Methadone Screen Ur Barbiturates Screen Ur Phencyclidine Scrn Ur Amphetamines Screen U Benzodiazepines Scrn U Oth Cocaine Metabols U Cannabinoids Screen 05/14/18 05/14/18 05/14/18 02:43 11:56 11:56 WBC 29.8 H D RBC 4.35 Hgb 11.8 Hct 36.2 MCV 83.1 MCH 27.2 MCHC 32.7 L RDW 18.5 H Plt Count 581 H MPV 7.3 Neut % (Auto) 84.3 H Lymph % (Auto) 11.7 L [place] % (Auto) 3.6 Eos % (Auto) 0.2 Baso % (Auto) 0.2 Neut # (Auto) 25.1 H Lymph # (Auto) 3.5 [place] # (Auto) 1.1 H Eos # (Auto) 0.1 Baso # (Auto) 0.1 PT 12.2 INR 1.1 APTT 25 Sodium Potassium Chloride Carbon Dioxide Anion Gap BUN Creatinine Est GFR ( Amer) Est GFR (Non-Af Amer) Random Glucose Calcium Total Bilirubin AST ALT Alkaline Phosphatase Total Protein Albumin Globulin Albumin/Globulin Ratio Lipase Urine Color Urine Clarity Urine pH Ur Specific [place] Urine Protein Urine Glucose (UA) Urine Ketones Urine Blood Urine Nitrate Urine Bilirubin Urine Urobilinogen Ur Leukocyte Esterase Urine WBC (Auto) Urine RBC (Auto) Ur Squamous Epith Cells Urine Bacteria Urine HCG, Qual Urine Opiates Screen Negative Urine Methadone Screen Negative Ur Barbiturates Screen Negative Ur Phencyclidine Scrn Negative Ur Amphetamines Screen Negative U Benzodiazepines Scrn Positive U Oth Cocaine Metabols Negative U Cannabinoids Screen Negative Assessment & Plan (1) Rectal bleeding Assessment and Plan: With abdom pain, dil loops and SBO- consider ischemia bowel. No prior diarrhea- i doubt IBD colitis or infection. Elev WBC- c/w bowel ischemia Status: Acute (2) Leucocytosis Status: Acute (3) Small bowel obstruction due to adhesions Assessment and Plan: dil loops and air fluid levels on CT. No colon disease on CT. REc- surgery Discussed with 2nd year Med Resident and Dr Turk. Protonix. Check stool c difficile Status: Acute (4) Abdominal pain Assessment and Plan: SBO, consider bowel ischemia Status: Acute (5) Asthma Status: Acute (6) HTN (hypertension) Status: Acute (7) Obesity (BMI 30-39.9) Status: Acute
[2018-05-14 12:37] LABS: ALB/GLOB RATIO 1.5 (1.0-2.1); ALBUMIN 3.7 g/dL (3.5-5.0); ALT/SGPT 34 U/L (9-52); AMYLASE 97 U/L (30-110); AST/SGOT 26 U/L (14-36); BLOOD UREA NITROGEN 11 mg/dL (7-17); CALCIUM 8.5 mg/dl (8.6-10.4); GFR NON-AFRICAN AMERICAN > 60; LIPASE 117 U/L (23-300)
--- NOTE | 2018-05-14 12:41 | CP.PCM.PN ---
Subjective - Date & Time of Evaluation Date of Evaluation: 05/14/18 Time of Evaluation: 11:45 - Subjective Subjective: Medical Attending Note: Patient seen and examined at bedside. Patient is writhing in pain. Patient denies headache, denies chest pain, denies palpitations, reports diffuse abdominal pain, denies nausea, denies vomitting, has had two bloody bowel movements. In the toilet bowl, patient has had gross bright red blood with clots at the bedside. She is writhing in pain. Patient reports she has gastric bypass 4 years ago. She has not had followup since that surgery. She has not taken outpatient MVI, calcium, and vitamin D supplements since the surgery. She has lost about 100lbs since the surgery. She has not had the post-op endoscopy or small bowel through to the best of his knowledge. Patient has allowed for the rectal witnessed by Dylan, her nurse and my resident , Dr Bright, patient has blood and clots from rectum. No masses appreciated. I have spoke with GI and General surgery. Patient will go to OR today. Objective - Vital Signs/Intake and Output Vital Signs (last 24 hours): Temp Pulse Resp BP Pulse Ox 98.3 F 134 H 20 137/95 H 99 05/14/18 04:05 05/14/18 04:08 05/14/18 04:05 05/14/18 04:05 05/14/18 05:54 - Medications Medications: Current Medications Albuterol (Ventolin Hfa 90 Mcg/Actuation (8 G)) 2 puff INH RQ6 PRN PRN Reason: Wheezing Famotidine (Pepcid) 20 mg IVP Q12 [facility] Last Admin: 05/14/18 11:04 Dose: 20 mg Fentanyl (Duragesic) 1 patch TD Q72H [facility] Last Admin: 05/14/18 11:02 Dose: 1 patch Lactated Ringer's (Lactated Ringer's) 1,000 mls @ 150 mls/hr IV .Q6H40M [facility] Last Admin: 05/14/18 08:09 Dose: 150 mls/hr Piperacillin Sod/Tazobactam (Sod 3.375 gm/ Sodium Chloride) 100 mls @ 200 mls/ hr IVPB Q6H [facility] PRN Reason: Protocol Last Admin: 05/14/18 11:04 Dose: 200 mls/hr Pantoprazole Sodium 80 mg/ (Sodium Chloride) 100 mls @ 10 mls/hr IVPB .Q10H [facility] PRN Reason: 8 MG/HR Metronidazole (Flagyl) 500 mg PO Q8H [facility] PRN Reason: Protocol Last Admin: 05/14/18 11:04 Dose: 500 mg Morphine Sulfate (Morphine) 2 mg IVP Q6 [facility] Ondansetron HCl (Zofran Inj) 4 mg IVP Q4 PRN PRN Reason: Nausea/Vomiting Fluticasone/Salmeterol (Advair Diskus 500/50) 1 puff INH RQ12 [facility] Last Admin: 05/14/18 11:09 Dose: 1 puff - Labs Labs: 05/14/18 11:56 05/14/18 12:12 PT 12.2 SECONDS (9.7-12.2) 05/14/18 11:56 INR 1.1 05/14/18 11:56 APTT 25 SECONDS (21-34) 05/14/18 11:56 - Constitutional Appears: In Acute Distress, Combative, Chronically Ill - Head Exam Head Exam: NORMAL INSPECTION - Eye Exam Eye Exam: EOMI - ENT Exam ENT Exam: Mucous Membranes Dry - Respiratory Exam Respiratory Exam: Clear to Ausculation Bilateral, NORMAL BREATHING PATTERN. absent: Rales, Rhonchi, Wheezes - Cardiovascular Exam Cardiovascular Exam: Tachycardia, +S1, +S2 - GI/Abdominal Exam GI & Abdominal Exam: Guarding, Soft, Tenderness, Hypoactive Bowel Sounds, Rebound. absent: Distended, Rigid - Neurological Exam Neurological Exam: Alert, Awake, Oriented x3 - Psychiatric Exam Psychiatric exam: Agitated, Anxious - Skin Skin Exam: Intact, Pallor, Warm Assessment and Plan (1) Ischemic bowel disease Assessment & Plan: Dr. Harley (surgery) on the case-->help appreciated Dr. Samara Denise (Surgery) on the case-->help appreciated GI (Dr. Alvarado) on the case-->help appreciated Chest xray (05/14/18): no infiltrate, pleural effusion, or pneumothorax b/l. Diminished inspiratory volume question. No acute cardiovascular disease. Patient has had 2 bloody bowel movements. Started 05/14/18 this morning Patient's rectal: blood. She has reported abdominal pain has worsening since last night. I have spoken with surgery and GI, patient will need immediate surgery intervention. Surgery and anesthesia to discuss risk and benefits of procedure prior to procedure Patient is type and crossed 2 units of PRBC and 2 FFP on hold. Medicine resident has discussed risk and benefits for PRBC transfusion which has allowed and consented for. White count has risen.Platelets risen. H/H mild drop; but I have suspecting further drop in light of H/H in light of rectal bleeding. Pending Lactic acid Type and cross ordered 2 unit of PRBC and 2 FFP ordered Status: Acute (2) Obesity (BMI 30-39.9) Assessment & Plan: s/p gastric bypass surgery Status: Acute (3) Status post gastric bypass for obesity Assessment & Plan: status post gastric bypass 2013 Status: Acute (4) Small bowel obstruction Assessment & Plan: CT abdomen/Pelvis (05/13/18): Writhing appearance of mesentric vessels. Mesentric edema. No evidence of bowel obstruction. Whirling appearance of mesentric vessels is nonspecific. Prominent mesentric lymph nodes. Mesentric edema. Patient is going to OR today in light of worsening abdominal pain, rectal bleeding, 2 bloody bowel movements, and rise in WBC. Awaiting lactic acid. Status: Acute (5) Prophylactic measure Assessment & Plan: Chemical anticoagulation held secondary to rectal bleeding/preoperative Protonix on board. Status: Acute
[2018-05-14] MEDS: Pantoprazole 80 MG in Sodium Chloride 0.9% 100 ML IVPB SCH ×3 (13:19→22:41)
--- NOTE | 2018-05-14 13:29 | CP.PCM.PN ---
Subjective - Date & Time of Evaluation Date of Evaluation: 05/14/18 Time of Evaluation: 12:30 - Subjective Subjective: BARIATRIC SURGERY CONSULT NOTE FOR DR. BONILLA 37 yr old F s/p Gastric bypass surgery with Dr. Hamilton 4 yrs ago presented to the ED with abdominal pain last night. patient states that she began having cramping abdominal pain yesterday associated with nausea vomiting (x3) and chills. She had a similar episode almost exactly one year ago which resolved spontaneously without hospital admission. Before her bypass she was approximately 280 lbs. She states that she has also stopped taking her nutritional supplements over the last year. She otherwise denies fevers, diarrhea, and SOB or Chest pain. This AM, pt's pain worsened and she had 7 episodes of bright red bloody diarrhea. Pt's tachycardia and WBC increasing. PMH: HTN, DM, Asthma, anxiety, hypothyroidism, HLD, chronic back pain, obesity, gastritis PSH: appendectomy, Laparoscopic Binta-en-Y Gastric bypass & highly selective vagotomy on 04/18/[address] Hamilton Allergies: moxifloxacin Objective - Vital Signs/Intake and Output Vital Signs (last 24 hours): Temp Pulse Resp BP Pulse Ox 98.3 F 134 H 20 137/95 H 99 05/14/18 04:05 05/14/18 04:08 05/14/18 04:05 05/14/18 04:05 05/14/18 05:54 - Medications Medications: Current Medications Albuterol (Ventolin Hfa 90 Mcg/Actuation (8 G)) 2 puff INH RQ6 PRN PRN Reason: Wheezing Famotidine (Pepcid) 20 mg IVP Q12 [facility] Last Admin: 05/14/18 11:04 Dose: 20 mg Fentanyl (Duragesic) 1 patch TD Q72H [facility] Last Admin: 05/14/18 11:02 Dose: 1 patch Lactated Ringer's (Lactated Ringer's) 1,000 mls @ 150 mls/hr IV .Q6H40M [facility] Last Admin: 05/14/18 08:09 Dose: 150 mls/hr Piperacillin Sod/Tazobactam (Sod 3.375 gm/ Sodium Chloride) 100 mls @ 200 mls/ hr IVPB Q6H [facility] PRN Reason: Protocol Last Admin: 05/14/18 11:04 Dose: 200 mls/hr Pantoprazole Sodium 80 mg/ (Sodium Chloride) 100 mls @ 10 mls/hr IVPB .Q10H [facility] PRN Reason: 8 MG/HR Last Admin: 05/14/18 13:19 Dose: Not Given Metronidazole (Flagyl) 500 mg PO Q8H [facility] PRN Reason: Protocol Last Admin: 05/14/18 11:04 Dose: 500 mg Morphine Sulfate (Morphine) 2 mg IVP Q6 [facility] Last Admin: 05/14/18 12:49 Dose: 2 mg Ondansetron HCl (Zofran Inj) 4 mg IVP Q4 PRN PRN Reason: Nausea/Vomiting Fluticasone/Salmeterol (Advair Diskus 500/50) 1 puff INH RQ12 [facility] Last Admin: 05/14/18 11:09 Dose: 1 puff - Labs Labs: 05/14/18 11:56 05/14/18 12:12 PT 12.2 SECONDS (9.7-12.2) 05/14/18 11:56 INR 1.1 05/14/18 11:56 APTT 25 SECONDS (21-34) 05/14/18 11:56 - Constitutional Appears: In Acute Distress - Respiratory Exam Respiratory Exam: NORMAL BREATHING PATTERN. absent: Respiratory Distress - Cardiovascular Exam Cardiovascular Exam: Tachycardia - GI/Abdominal Exam GI & Abdominal Exam: Soft, Tenderness (diffusely tender). absent: Distended, Firm, Guarding, Rigid, Rebound - Neurological Exam Neurological Exam: Alert, Awake - Psychiatric Exam Psychiatric exam: Anxious - Skin Skin Exam: Dry, Normal Color, Warm Assessment and Plan - Assessment and Plan (Free Text) Assessment: 37yo F with PMHx of HTN, DM, Asthma, anxiety, hypothyroidism, HLD, chronic back pain, gastritis, obesity s/p laparoscopic gastric bypass in 2013 who presents with diffuse abdominal pain, likely secondary to internal hernia - Afebrile, now tachycardic to 136 - Leukocytosis increased from 16.2 to 29.8 - CT showed whirling mesenteric appearance of mesenteric vessels with mesenteric edema, possible internal hernia - Pt with acute abdomen, new onset bloody diarrhea, pain out of proportion to exam, concern for internal hernia, possible ischemic bowel - Will take for emergent diagnostic laparoscopy, possible exploratory laparotomy , possible bowel resection - Continue NPO, IV fluids, pain medication PRN - Discussed plan with Dr. Howie Dailey PGY-4
--- NOTE | 2018-05-14 13:42 | CP.PCM.CON ---
<Maggie Dailey - Last Filed: 05/14/18 13:42> History of Present Illness - History of Present Illness History of Present Illness: BARIATRIC SURGERY CONSULT NOTE FOR DR. DENISE 37 yr old F s/p Gastric bypass surgery with Dr. Hamilton 4 yrs ago presented to the ED with abdominal pain last night. patient states that she began having cramping abdominal pain yesterday associated with nausea vomiting (x3) and chills. She had a similar episode almost exactly one year ago which resolved spontaneously without hospital admission. Before her bypass she was approximately 280 lbs. She states that she has also stopped taking her nutritional supplements over the last year. She otherwise denies fevers, diarrhea, and SOB or Chest pain. This AM, pt's pain worsened and she had 7 episodes of bright red bloody diarrhea. Pt's tachycardia and WBC increasing. PMH: HTN, DM, Asthma, anxiety, hypothyroidism, HLD, chronic back pain, obesity, gastritis PSH: appendectomy, Laparoscopic Yenni-en-Y Gastric bypass & highly selective vagotomy on 04/18/[address] Hamilton Allergies: moxifloxacin Review of Systems - Review of Systems All systems: reviewed and no additional remarkable complaints except (as perh hpi) Past Patient History - Infectious Disease Hx of Infectious Diseases: None - Past Medical History & Family History Past Medical History?: Yes - Past Social History Smoking Status: Light Smoker < 10 Cigarettes Daily - CARDIAC Hx Hypercholesterolemia: Yes Hx Hypertension: Yes - PULMONARY Hx Asthma: Yes Hx Sleep Apnea: Yes (mild) - NEUROLOGICAL Hx Neurological Disorder: No - HEENT Hx HEENT Problems: No - RENAL Hx Kidney Stones: Yes - ENDOCRINE/METABOLIC Hx Hypothyroidism: Yes - HEMATOLOGICAL/ONCOLOGICAL Hx Blood Disorders: No - INTEGUMENTARY Hx Dermatological Problems: No - MUSCULOSKELETAL/RHEUMATOLOGICAL Hx Arthritis: Yes Hx Fractures: Yes (right middle finger, right foot) - GASTROINTESTINAL Hx Gastritis: Yes - GENITOURINARY/GYNECOLOGICAL Hx Genitourinary Disorders: No - PSYCHIATRIC Hx Anxiety: Yes Hx Substance Use: No - SURGICAL HISTORY Hx Gastric Bypass Surgery: Yes (2013) - ANESTHESIA Hx Anesthesia: Yes Hx Anesthesia Reactions: No Hx Malignant Hyperthermia: No Meds Allergies/Adverse Reactions: Allergies Allergy/AdvReac Type Severity Reaction Status Date / Time moxifloxacin [From Avelox] Allergy Severe RASH Verified 05/13/18 23:21 - Medications Medications: Current Medications Albuterol (Ventolin Hfa 90 Mcg/Actuation (8 G)) 2 puff INH RQ6 PRN PRN Reason: Wheezing Famotidine (Pepcid) 20 mg IVP Q12 [facility] Last Admin: 05/14/18 11:04 Dose: 20 mg Fentanyl (Duragesic) 1 patch TD Q72H [facility] Last Admin: 05/14/18 11:02 Dose: 1 patch Lactated Ringer's (Lactated Ringer's) 1,000 mls @ 150 mls/hr IV .Q6H40M [facility] Last Admin: 05/14/18 08:09 Dose: 150 mls/hr Piperacillin Sod/Tazobactam (Sod 3.375 gm/ Sodium Chloride) 100 mls @ 200 mls/ hr IVPB Q6H [facility] PRN Reason: Protocol Last Admin: 05/14/18 11:04 Dose: 200 mls/hr Pantoprazole Sodium 80 mg/ (Sodium Chloride) 100 mls @ 10 mls/hr IVPB .Q10H [facility] PRN Reason: 8 MG/HR Last Admin: 05/14/18 13:19 Dose: Not Given Metronidazole (Flagyl) 500 mg PO Q8H [facility] PRN Reason: Protocol Last Admin: 05/14/18 11:04 Dose: 500 mg Morphine Sulfate (Morphine) 2 mg IVP Q6 [facility] Last Admin: 05/14/18 12:49 Dose: 2 mg Ondansetron HCl (Zofran Inj) 4 mg IVP Q4 PRN PRN Reason: Nausea/Vomiting Fluticasone/Salmeterol (Advair Diskus 500/50) 1 puff INH RQ12 [facility] Last Admin: 05/14/18 11:09 Dose: 1 puff Physical Exam - Constitutional Appears: In Acute Distress - Head Exam Head Exam: ATRAUMATIC, NORMAL INSPECTION - Eye Exam Eye Exam: EOMI, Normal appearance - ENT Exam ENT Exam: Mucous Membranes Moist - Respiratory Exam Respiratory Exam: NORMAL BREATHING PATTERN. absent: Respiratory Distress - Cardiovascular Exam Cardiovascular Exam: Tachycardia - GI/Abdominal Exam GI & Abdominal Exam: Guarding, Soft, Tenderness (diffusely tender). absent: Distended, Firm, Rebound - Neurological Exam Neurological exam: Alert, Oriented x3 - Psychiatric Exam Psychiatric exam: Anxious - Skin Skin Exam: Dry, Normal Color, Warm Results - Vital Signs Recent Vital Signs: Last Vital Signs Temp 98.3 F 05/14/18 04:05 Pulse 134 H 05/14/18 04:08 Resp 20 05/14/18 04:05 BP 137/95 H 05/14/18 04:05 Pulse Ox 99 05/14/18 05:54 - Labs Result Diagrams: 05/14/18 11:56 05/14/18 12:12 Labs: Laboratory Results - last 24 hr 05/13/18 05/13/18 05/13/18 23:32 23:32 23:46 WBC 16.2 H D RBC 4.41 Hgb 12.4 Hct 36.4 MCV 82.6 D MCH 28.0 MCHC 34.0 RDW 18.9 H Plt Count 521 H D MPV 6.9 L Neut % (Auto) 57.5 Lymph % (Auto) 36.5 [place] % (Auto) 4.3 Eos % (Auto) 0.9 Baso % (Auto) 0.8 Neut # (Auto) 9.3 H Lymph # (Auto) 5.9 H [place] # (Auto) 0.7 Eos # (Auto) 0.1 Baso # (Auto) 0.1 Neutrophils % (Manual) Band Neutrophils % Lymphocytes % (Manual) Monocytes % (Manual) Basophils % (Manual) Platelet Estimate Plt Clumps, EDTA Hypochromasia (manual) Poikilocytosis (manual Anisocytosis (manual) PT INR APTT Sodium 138 Potassium 3.2 L Chloride 101 Carbon Dioxide 23 Anion Gap 17 BUN 7 Creatinine 0.7 Est GFR ( Amer) > 60 Est GFR (Non-Af Amer) > 60 Random Glucose 127 H Lactic Acid Calcium 9.9 Total Bilirubin 0.5 AST 38 H ALT 43 Alkaline Phosphatase 134 H Total Protein 7.8 Albumin 4.5 Globulin 3.3 Albumin/Globulin Ratio 1.4 Amylase Lipase 109 Urine Color Yellow Urine Clarity Hazy Urine pH 7.0 Ur Specific [place] 1.010 Urine Protein Negative Urine Glucose (UA) Normal Urine Ketones Negative Urine Blood Negative Urine Nitrate Negative Urine Bilirubin Negative Urine Urobilinogen Normal Ur Leukocyte Esterase Trace H Urine WBC (Auto) 2 Urine RBC (Auto) 1 Ur Squamous Epith Cells 30 H Urine Bacteria Few H Urine HCG, Qual Negative Stool Occult Blood Urine Opiates Screen Urine Methadone Screen Ur Barbiturates Screen Ur Phencyclidine Scrn Ur Amphetamines Screen U Benzodiazepines Scrn U Oth Cocaine Metabols U Cannabinoids Screen Blood Type 05/14/18 05/14/18 05/14/18 02:43 11:56 11:56 WBC 29.8 H D RBC 4.35 Hgb 11.8 Hct 36.2 MCV 83.1 MCH 27.2 MCHC 32.7 L RDW 18.5 H Plt Count 581 H MPV 7.3 Neut % (Auto) 84.3 H Lymph % (Auto) 11.7 L [place] % (Auto) 3.6 Eos % (Auto) 0.2 Baso % (Auto) 0.2 Neut # (Auto) 25.1 H Lymph # (Auto) 3.5 [place] # (Auto) 1.1 H Eos # (Auto) 0.1 Baso # (Auto) 0.1 Neutrophils % (Manual) 74 Band Neutrophils % 5 H Lymphocytes % (Manual) 14 L Monocytes % (Manual) 6 Basophils % (Manual) 1 Platelet Estimate Slightly increased H Plt Clumps, EDTA Present Hypochromasia (manual) Slight Poikilocytosis (manual Slight Anisocytosis (manual) Slight PT 12.2 INR 1.1 APTT 25 Sodium Potassium Chloride Carbon Dioxide Anion Gap BUN Creatinine Est GFR ( Amer) Est GFR (Non-Af Amer) Random Glucose Lactic Acid Calcium Total Bilirubin AST ALT Alkaline Phosphatase Total Protein Albumin Globulin Albumin/Globulin Ratio Amylase Lipase Urine Color Urine Clarity Urine pH Ur Specific [place] Urine Protein Urine Glucose (UA) Urine Ketones Urine Blood Urine Nitrate Urine Bilirubin Urine Urobilinogen Ur Leukocyte Esterase Urine WBC (Auto) Urine RBC (Auto) Ur Squamous Epith Cells Urine Bacteria Urine HCG, Qual Stool Occult Blood Urine Opiates Screen Negative Urine Methadone Screen Negative Ur Barbiturates Screen Negative Ur Phencyclidine Scrn Negative Ur Amphetamines Screen Negative U Benzodiazepines Scrn Positive U Oth Cocaine Metabols Negative U Cannabinoids Screen Negative Blood Type 05/14/18 05/14/18 05/14/18 12:12 12:56 12:56 WBC RBC Hgb Hct MCV MCH MCHC RDW Plt Count MPV Neut % (Auto) Lymph % (Auto) [place] % (Auto) Eos % (Auto) Baso % (Auto) Neut # (Auto) Lymph # (Auto) [place] # (Auto) Eos # (Auto) Baso # (Auto) Neutrophils % (Manual) Band Neutrophils % Lymphocytes % (Manual) Monocytes % (Manual) Basophils % (Manual) Platelet Estimate Plt Clumps, EDTA Hypochromasia (manual) Poikilocytosis (manual Anisocytosis (manual) PT INR APTT Sodium 137 Potassium 4.1 Chloride 106 Carbon Dioxide 22 Anion Gap 13 BUN 11 Creatinine 0.6 L Est GFR ( Amer) > 60 Est GFR (Non-Af Amer) > 60 Random Glucose 189 H Lactic Acid Calcium 8.5 L Total Bilirubin 0.7 AST 26 ALT 34 Alkaline Phosphatase 112 Total Protein 6.2 L Albumin 3.7 Globulin 2.5 Albumin/Globulin Ratio 1.5 Amylase 97 Lipase 117 Urine Color Urine Clarity Urine pH Ur Specific [place] Urine Protein Urine Glucose (UA) Urine Ketones Urine Blood Urine Nitrate Urine Bilirubin Urine Urobilinogen Ur Leukocyte Esterase Urine WBC (Auto) Urine RBC (Auto) Ur Squamous Epith Cells Urine Bacteria Urine HCG, Qual Stool Occult Blood Positive H Urine Opiates Screen Urine Methadone Screen Ur Barbiturates Screen Ur Phencyclidine Scrn Ur Amphetamines Screen U Benzodiazepines Scrn U Oth Cocaine Metabols U Cannabinoids Screen Blood Type O POSITIVE 05/14/18 12:56 WBC RBC Hgb Hct MCV MCH MCHC RDW Plt Count MPV Neut % (Auto) Lymph % (Auto) [place] % (Auto) Eos % (Auto) Baso % (Auto) Neut # (Auto) Lymph # (Auto) [place] # (Auto) Eos # (Auto) Baso # (Auto) Neutrophils % (Manual) Band Neutrophils % Lymphocytes % (Manual) Monocytes % (Manual) Basophils % (Manual) Platelet Estimate Plt Clumps, EDTA Hypochromasia (manual) Poikilocytosis (manual Anisocytosis (manual) PT INR APTT Sodium Potassium Chloride Carbon Dioxide Anion Gap BUN Creatinine Est GFR ( Amer) Est GFR (Non-Af Amer) Random Glucose Lactic Acid 3.6 H Calcium Total Bilirubin AST ALT Alkaline Phosphatase Total Protein Albumin Globulin Albumin/Globulin Ratio Amylase Lipase Urine Color Urine Clarity Urine pH Ur Specific [place] Urine Protein Urine Glucose (UA) Urine Ketones Urine Blood Urine Nitrate Urine Bilirubin Urine Urobilinogen Ur Leukocyte Esterase Urine WBC (Auto) Urine RBC (Auto) Ur Squamous Epith Cells Urine Bacteria Urine HCG, Qual Stool Occult Blood Urine Opiates Screen Urine Methadone Screen Ur Barbiturates Screen Ur Phencyclidine Scrn Ur Amphetamines Screen U Benzodiazepines Scrn U Oth Cocaine Metabols U Cannabinoids Screen Blood Type Assessment & Plan - Assessment and Plan (Free Text) Assessment: 37yo F with PMHx of HTN, DM, Asthma, anxiety, hypothyroidism, HLD, chronic back pain, gastritis, obesity s/p laparoscopic gastric bypass in 2013 who presents with diffuse abdominal pain, likely secondary to internal hernia Plan: - Afebrile, now tachycardic to 136 - Leukocytosis increased from 16.2 to 29.8 - CT showed whirling mesenteric appearance of mesenteric vessels with mesenteric edema, possible internal hernia - Pt with acute abdomen, new onset bloody diarrhea, pain out of proportion to exam, concern for internal hernia, possible ischemic bowel - Will take for emergent diagnostic laparoscopy, possible exploratory laparotomy , possible bowel resection - Continue NPO, IV fluids, pain medication PRN - Discussed plan with Dr. Howie Dailey PGY-4 <Roz Denise - Last Filed: 05/14/18 19:21> Meds - Medications Medications: Current Medications Famotidine (Pepcid) 20 mg IVP Q12 [facility] Last Admin: 05/14/18 11:04 Dose: 20 mg Lactated Ringer's (Lactated Ringer's) 1,000 mls @ 150 mls/hr IV .Q6H40M [facility] Last Admin: 05/14/18 14:51 Dose: Not Given Piperacillin Sod/Tazobactam (Sod 3.375 gm/ Sodium Chloride) 100 mls @ 200 mls/ hr IVPB Q6H [facility] PRN Reason: Protocol Last Admin: 05/14/18 16:25 Dose: Not Given Pantoprazole Sodium 80 mg/ (Sodium Chloride) 100 mls @ 10 mls/hr IVPB .Q10H [facility] PRN Reason: 8 MG/HR Last Admin: 05/14/18 18:59 Dose: 10 mls/hr Cisatracurium Besylate 100 mg/ (Dextrose) 250 mls @ 36.74 mls/hr IV .Q6H49M [facility] ; 3 MCG/KG/MIN PRN Reason: Protocol Last Admin: 05/14/18 18:48 Dose: 3 mcg/kg/min, 36.74 mls/hr Fentanyl Citrate 2,500 mcg/ (Sodium Chloride) 250 mls @ 16.32 mls/hr IV .[id number] [facility]; 2 MCG/KG/HR PRN Reason: Protocol Last Admin: 05/14/18 18:47 Dose: 3 mcg/kg/hr, 24.49 mls/hr Propofol (Diprivan) 1,000 mg in 100 mls @ 2.449 mls/hr IV .Q24H PRN; Protocol; 5 MCG/KG/MIN PRN Reason: TITRATE PER MD ORDER Last Titration: 05/14/18 18:30 Dose: 30 mcg/kg/min, 14.696 mls/hr Ondansetron HCl (Zofran Inj) 4 mg IVP Q4 PRN PRN Reason: Nausea/Vomiting Results - Vital Signs Recent Vital Signs: Last Vital Signs Temp 98.3 F 05/14/18 04:05 Pulse 130 H 05/14/18 17:19 Resp 20 05/14/18 04:05 BP 137/95 H 05/14/18 04:05 Pulse Ox 99 05/14/18 05:54 - Labs Result Diagrams: 05/14/18 11:56 05/14/18 12:12 Labs: Laboratory Results - last 24 hr 05/13/18 05/13/18 05/13/18 23:32 23:32 23:46 WBC 16.2 H D RBC 4.41 Hgb 12.4 Hct 36.4 MCV 82.6 D MCH 28.0 MCHC 34.0 RDW 18.9 H Plt Count 521 H D MPV 6.9 L Neut % (Auto) 57.5 Lymph % (Auto) 36.5 [place] % (Auto) 4.3 Eos % (Auto) 0.9 Baso % (Auto) 0.8 Neut # (Auto) 9.3 H Lymph # (Auto) 5.9 H [place] # (Auto) 0.7 Eos # (Auto) 0.1 Baso # (Auto) 0.1 Neutrophils % (Manual) Band Neutrophils % Lymphocytes % (Manual) Monocytes % (Manual) Basophils % (Manual) Platelet Estimate Plt Clumps, EDTA Hypochromasia (manual) Poikilocytosis (manual Anisocytosis (manual) PT INR APTT Sodium 138 Potassium 3.2 L Chloride 101 Carbon Dioxide 23 Anion Gap 17 BUN 7 Creatinine 0.7 Est GFR ( Amer) > 60 Est GFR (Non-Af Amer) > 60 Random Glucose 127 H Lactic Acid Calcium 9.9 Total Bilirubin 0.5 AST 38 H ALT 43 Alkaline Phosphatase 134 H Total Protein 7.8 Albumin 4.5 Globulin 3.3 Albumin/Globulin Ratio 1.4 Amylase Lipase 109 Urine Color Yellow Urine Clarity Hazy Urine pH 7.0 Ur Specific [place] 1.010 Urine Protein Negative Urine Glucose (UA) Normal Urine Ketones Negative Urine Blood Negative Urine Nitrate Negative Urine Bilirubin Negative Urine Urobilinogen Normal Ur Leukocyte Esterase Trace H Urine WBC (Auto) 2 Urine RBC (Auto) 1 Ur Squamous Epith Cells 30 H Urine Bacteria Few H Urine HCG, Qual Negative Stool Occult Blood Urine Opiates Screen Urine Methadone Screen Ur Barbiturates Screen Ur Phencyclidine Scrn Ur Amphetamines Screen U Benzodiazepines Scrn U Oth Cocaine Metabols U Cannabinoids Screen Blood Type Antibody Screen 05/14/18 05/14/18 05/14/18 02:43 11:56 11:56 WBC 29.8 H D RBC 4.35 Hgb 11.8 Hct 36.2 MCV 83.1 MCH 27.2 MCHC 32.7 L RDW 18.5 H Plt Count 581 H MPV 7.3 Neut % (Auto) 84.3 H Lymph % (Auto) 11.7 L [place] % (Auto) 3.6 Eos % (Auto) 0.2 Baso % (Auto) 0.2 Neut # (Auto) 25.1 H Lymph # (Auto) 3.5 [place] # (Auto) 1.1 H Eos # (Auto) 0.1 Baso # (Auto) 0.1 Neutrophils % (Manual) 74 Band Neutrophils % 5 H Lymphocytes % (Manual) 14 L Monocytes % (Manual) 6 Basophils % (Manual) 1 Platelet Estimate Slightly increased H Plt Clumps, EDTA Present Hypochromasia (manual) Slight Poikilocytosis (manual Slight Anisocytosis (manual) Slight PT 12.2 INR 1.1 APTT 25 Sodium Potassium Chloride Carbon Dioxide Anion Gap BUN Creatinine Est GFR ( Amer) Est GFR (Non-Af Amer) Random Glucose Lactic Acid Calcium Total Bilirubin AST ALT Alkaline Phosphatase Total Protein Albumin Globulin Albumin/Globulin Ratio Amylase Lipase Urine Color Urine Clarity Urine pH Ur Specific [place] Urine Protein Urine Glucose (UA) Urine Ketones Urine Blood Urine Nitrate Urine Bilirubin Urine Urobilinogen Ur Leukocyte Esterase Urine WBC (Auto) Urine RBC (Auto) Ur Squamous Epith Cells Urine Bacteria Urine HCG, Qual Stool Occult Blood Urine Opiates Screen Negative Urine Methadone Screen Negative Ur Barbiturates Screen Negative Ur Phencyclidine Scrn Negative Ur Amphetamines Screen Negative U Benzodiazepines Scrn Positive U Oth Cocaine Metabols Negative U Cannabinoids Screen Negative Blood Type Antibody Screen 05/14/18 05/14/18 05/14/18 12:12 12:56 12:56 WBC RBC Hgb Hct MCV MCH MCHC RDW Plt Count MPV Neut % (Auto) Lymph % (Auto) [place] % (Auto) Eos % (Auto) Baso % (Auto) Neut # (Auto) Lymph # (Auto) [place] # (Auto) Eos # (Auto) Baso # (Auto) Neutrophils % (Manual) Band Neutrophils % Lymphocytes % (Manual) Monocytes % (Manual) Basophils % (Manual) Platelet Estimate Plt Clumps, EDTA Hypochromasia (manual) Poikilocytosis (manual Anisocytosis (manual) PT INR APTT Sodium 137 Potassium 4.1 Chloride 106 Carbon Dioxide 22 Anion Gap 13 BUN 11 Creatinine 0.6 L Est GFR ( Amer) > 60 Est GFR (Non-Af Amer) > 60 Random Glucose 189 H Lactic Acid Calcium 8.5 L Total Bilirubin 0.7 AST 26 ALT 34 Alkaline Phosphatase 112 Total Protein 6.2 L Albumin 3.7 Globulin 2.5 Albumin/Globulin Ratio 1.5 Amylase 97 Lipase 117 Urine Color Urine Clarity Urine pH Ur Specific [place] Urine Protein Urine Glucose (UA) Urine Ketones Urine Blood Urine Nitrate Urine Bilirubin Urine Urobilinogen Ur Leukocyte Esterase Urine WBC (Auto) Urine RBC (Auto) Ur Squamous Epith Cells Urine Bacteria Urine HCG, Qual Stool Occult Blood Positive H Urine Opiates Screen Urine Methadone Screen Ur Barbiturates Screen Ur Phencyclidine Scrn Ur Amphetamines Screen U Benzodiazepines Scrn U Oth Cocaine Metabols U Cannabinoids Screen Blood Type O POSITIVE Antibody Screen Negative 05/14/18 12:56 WBC RBC Hgb Hct MCV MCH MCHC RDW Plt Count MPV Neut % (Auto) Lymph % (Auto) [place] % (Auto) Eos % (Auto) Baso % (Auto) Neut # (Auto) Lymph # (Auto) [place] # (Auto) Eos # (Auto) Baso # (Auto) Neutrophils % (Manual) Band Neutrophils % Lymphocytes % (Manual) Monocytes % (Manual) Basophils % (Manual) Platelet Estimate Plt Clumps, EDTA Hypochromasia (manual) Poikilocytosis (manual Anisocytosis (manual) PT INR APTT Sodium Potassium Chloride Carbon Dioxide Anion Gap BUN Creatinine Est GFR ( Amer) Est GFR (Non-Af Amer) Random Glucose Lactic Acid 3.6 H Calcium Total Bilirubin AST ALT Alkaline Phosphatase Total Protein Albumin Globulin Albumin/Globulin Ratio Amylase Lipase Urine Color Urine Clarity Urine pH Ur Specific [place] Urine Protein Urine Glucose (UA) Urine Ketones Urine Blood Urine Nitrate Urine Bilirubin Urine Urobilinogen Ur Leukocyte Esterase Urine WBC (Auto) Urine RBC (Auto) Ur Squamous Epith Cells Urine Bacteria Urine HCG, Qual Stool Occult Blood Urine Opiates Screen Urine Methadone Screen Ur Barbiturates Screen Ur Phencyclidine Scrn Ur Amphetamines Screen U Benzodiazepines Scrn U Oth Cocaine Metabols U Cannabinoids Screen Blood Type Antibody Screen Assessment & Plan - Assessment and Plan (Free Text) Plan: Asked to see patient by Dr. Harley for evaluation regarding internal hernia s/p gastric bypass. I personally saw and examined the patient at bedside with the resident staff and agree with the above assessment and plan. CT images were personally reviewed. 37 Female previous [id number] bypass many several years ago presented with acute abdominal pain, CT shows internal hernia and concerning findings for ischemia. Site of internal hernia appears to be at Jejunojenuostomy mesenteric site. On evaluation patient tachycardic 130, significant abdominal pain and diffuse tenderness, elevated WBC count. Needs urgent exploration. Findings and recommendations discussed with Dr. Harley. Will plan to assist in him in surgery. Operative report for gastric bypass from 2013, reviewed - 40cm BP limb from ligament of treitz, 120cm yenni-limb, stapled JJ anastomosis and mesenteric defect sutured closed, ante-colic yenni-limb and EEA stapled gastrojejostomy, vagotomy performed. - Date & Time Date: 05/14/18 Time: 12:15
[2018-05-14] MEDS ORDERED: Midazolam 2 MG/2 ML VIAL ONE ×2 (13:48→16:35)
[2018-05-14] MEDS ORDERED: Propofol 10 mg/ml Inj (20 ML) ONE (13:49)
[2018-05-14] MEDS ORDERED: Succinylcholine Chloride 20 mg/ml Syr (5 ml) IV ONE (13:51)
[2018-05-14] MEDS ORDERED: Phenylephrine 10 mg/ml Inj ONE (13:51)
[2018-05-14] MEDS ORDERED: Rocuronium 10 mg/ml (5 ml) ONE ×2 (13:51→14:51)
--- NOTE | 2018-05-14 15:26 | CT ---
Date of service: 05/14/2018 PROCEDURE: CT Abdomen and Pelvis with contrast HISTORY: abd pain COMPARISON: None. TECHNIQUE: Following the intravenous administration of iodinated contrast material, a CT examination of the abdomen and pelvis performed from the domes of the diaphragms to the symphysis pubis with reformatted datasets provided in axial, sagittal and coronal planes. Oral contrast was not administered as per referring physician request. Contrast dose: Visipaque 320, 100 cc Radiation dose: Total exam DLP = 044.98 mGy-cm. This CT exam was performed using one or more of the following dose reduction techniques: Automated exposure control, adjustment of the mA and/or kV according to patient size, and/or use of iterative reconstruction technique. FINDINGS: LOWER THORAX: Unremarkable. LIVER: Unremarkable. No gross lesion or ductal dilatation. GALLBLADDER AND BILE DUCTS: Unremarkable. PANCREAS: Unremarkable. No gross lesion or ductal dilatation. SPLEEN: Unremarkable. ADRENALS: Unremarkable. No mass. KIDNEYS AND URETERS: Unremarkable. No hydronephrosis. No solid mass. VASCULATURE: Unremarkable. No aortic aneurysm. BOWEL: Postoperative changes are again identified involving the stomach and small bowel suggestive of gastric bypass procedure in the past once again. A swirling pattern related to the central small bowel Mesentery is reiterated and is questionable though this may have increased in the interval. There is prominent central mesenteric edema identified as well as numerous lymph nodes at the central Mesentery and thickening of the distal small-bowel loop in the right lower quadrant is not excluded. The stomach is decompressed and a solitary loop of small bowel appears somewhat distended at the inferior abdomen/upper pelvis with the majority small-bowel appear relatively collapsed. Prominent retained fecal material seen in the ascending colon with lesser volume of contents otherwise throughout the remainder of the colon. Bowel obstruction is not favored at this time. Consider possible mesenteric adenitis with distal segmental enteritis not excluded. Consider follow-up contrast abdomen pelvis CT in 24 hours. APPENDIX: Not clearly identified PERITONEUM: Unremarkable. No free fluid. No free air. LYMPH NODES: Unremarkable. No enlarged lymph nodes. BLADDER: Unremarkable. REPRODUCTIVE: Unremarkable. BONES: No acute fracture. OTHER FINDINGS: None. IMPRESSION: 1. Postoperative changes likely related to gastric bypass surgery reiterated however prominent central mesenteric edema is appreciate with potential intra increased internal swirling of the small bowel mesenteric pedicle in the interval. Small-bowel obstruction is not clearly evident however increased internal hernia pattern is not excluded and further clinical correlation is recommended. Mesenteric adenitis is relatively prominent. Segmental enteritis affecting right lower quadrant small bowel loop is questioned as well. 2. No free intra peritoneal gas or abscess appreciated. Discordant from preliminary report given by Fannie cuadra 05/14/2018.
[2018-05-14] MEDS ORDERED: Piperacillin/Tazobact 3.375 gm 100 ML IVPB ONE (16:31)
--- NOTE | 2018-05-14 17:49 | PCM.SURG1 ---
Surgeon's Initial Post Op Note - Surgeon's Notes Surgeon: Dr. Harley Freezing Room Worker: Dr. Denise, Dr. Dailey PGY-4 Type of Anesthesia: General Endo Anesthesia Administered By: Dr. Miller Pre-Operative Diagnosis: Internal hernia s/p binta-en-Y gastric bypass Operative Findings: ischemia of binta limb, internal hernia. Naveed drain stitched to distal common limb Post-Operative Diagnosis: Internal hernia s/p binta-en-Y gastric bypass, Ischemia of Binta limb Operation Performed: Diagnostic laparoscopy, Exploratory laparotomy, Reduction of internal hernia, Lysis of adhesions, Drainage of abdominal collections, temporary abdominal closure, EGD Specimen/Specimens Removed: peritoneal fluid Estimated Blood Loss: EBL {In ML}: 50 Blood Products Given: N/A Drains Used: No Drains, Sky Post-Op Condition: Poor Date of Surgery/Procedure: 05/14/18 Time of Surgery/Procedure: 14:00
--- NOTE | 2018-05-14 17:50 | PCM.PROC ---
Procedures Attestation:: I certify that I have explained the specified Operation(s) or Procedure(s), risks, benefits and reasonable alternatives to the Patient and/or other person responsible. The opportunity was given to ask questions and all questions answered - Central Line Placement Right Internal Jugular Triple Lumen Catheter Aseptic technique was employed throughout the procedure: Hand Hygiene done prior to procedure, Full sterile barriers (mask, hair cover, sterile gown, sterile gloves), Full body sterile drape, Chloraprep Antiseptic: 30 second prep for IJ or SC sites CVP Time Out Performed: Yes Pt. Placed on Pulse Ox Monitor: Yes Central Line Prep: Chlorhexidine-Alcohol Combination Amount of Anesthesia Used (mls): 0 Ultrasound Used for Placement: Yes Central Line Lumen Inserted: triple Central Line Length: 16 cm Post Procedure: Sutured in Place, Good Blood Return, All Ports Aspirated, Flushed, Capped, Sterile Dressing Applied Secured by: Suture Post procedure dressing: Clear vapor permeable, Chlorhexidine disc (Biopatch) Post Procedure X-Ray: Yes Patient Tolerated Procedure: Well, No Complications Immediate Complications: None
[2018-05-14] MEDS: Propofol 10 mg/ml 1,000 MG/100 ML VIAL IV PRN ×2 (18:00→23:46)
--- NOTE | 2018-05-14 18:18 | RAD ---
Date of service: 05/14/2018 HISTORY: intubation COMPARISON: Portable chest 05/14/2018. FINDINGS: LUNGS: No active pulmonary disease. PLEURA: No significant pleural effusion identified, no pneumothorax apparent. CARDIOVASCULAR: Normal. OSSEOUS STRUCTURES: No significant abnormalities. VISUALIZED UPPER ABDOMEN: Normal. OTHER FINDINGS: There is interval insertion of a right center venous catheter by an internal jugular approach with tip turning at the cavoatrial junction. Further, an endotracheal tube is placed with the tip terminating approximately 5 cm above the dinh in the plane of the trachea at the level of clavicles. Finally, a nasogastric tube is in place with tip terminating at the esophagogastric junction region. Advancement further into the stomach 10-15 cm is recommended. IMPRESSION: No acute cardiopulmonary disease appreciated. Please see tubes and catheter descriptions above. NG tube terminates at esophagogastric junction. Advancement further into the stomach is advised.
[2018-05-14] MEDS: Cisatracurium Besylate 100 MG in Dextrose 5% In Water 240 ML IV SCH (18:48)
[2018-05-14 19:45] LABS: ABG ALLEN TEST POS; ARTERIAL BLOOD GAS HCO3 20.5 mmol/L (21-28); ARTERIAL BLOOD GAS O2 SAT 98.7 % (95-98); ARTERIAL BLOOD GAS PCO2 40 mm/Hg (35-45); ARTERIAL BLOOD GAS PH 7.31 (7.35-7.45); ARTERIAL BLOOD GAS PO2 217 mm/Hg (80-100); ARTERIAL BLOOD GAS TCO2 21.3 mmol/L (22-28)
[2018-05-14 19:45] LABS: BASO # 0.1 K/uL (0.0-0.2); BASO % 0.2 % (0.0-2.0); HEMOGLOBIN 10.7 g/dL (11.0-16.0); LYMPH # 2.7 K/uL (1.0-4.3); LYMPH % 10.5 % (20.0-40.0); MEAN CELL VOLUME 83.4 fL (81.0-99.0); MEAN CORPUSCULAR HEMOGLOBIN 26.9 pg (27.0-31.0); MEAN CORPUSCULAR HGB CONC 32.3 g/dL (33.0-37.0); MEAN PLATELET VOLUME 6.6 fL (7.2-11.7); MONO # 1.4 K/uL (0.0-0.8); MONO % 5.6 % (0.0-10.0); NEUT # 21.6 K/uL (1.8-7.0); NEUT % 83.7 % (50.0-75.0); RBC 3.96 Mil/uL (3.80-5.20); RED CELL DISTRIBUTION WIDTH 18.9 % (11.5-14.5); WHITE BLOOD COUNT 25.8 K/uL (4.8-10.8)
[2018-05-14] MEDS ORDERED: Albumin Human 25% (12.5 gm/50 ml) IV ONE (20:07)
[2018-05-14] MEDS ORDERED: Vancomycin 1 gm/NS 200 ml 1 GM/200 ML BAG IVPB SCH (20:15)
[2018-05-14 20:26] LABS: ALB/GLOB RATIO 1.2 (1.0-2.1); ALBUMIN 2.2 g/dL (3.5-5.0); ALT/SGPT 32 U/L (9-52); AST/SGOT 31 U/L (14-36); BLOOD UREA NITROGEN 13 mg/dL (7-17); CALCIUM 7.1 mg/dl (8.6-10.4); GFR NON-AFRICAN AMERICAN > 60
[2018-05-14] MEDS ORDERED: Sodium Chloride 0.9% 500 ML IV ONE (20:38)
--- NOTE | 2018-05-14 20:43 | CP.PCM.CON ---
History of Present Illness - History of Present Illness History of Present Illness: Patient is a 37-year-old female, admitted with abdominal pain, seen by surgeon, and needed emergency laparotomy today. Patient underwent emergency laparotomy for possible ischemic bowel. Patient had GI bleed. In the operating room patient underwent extensive exploratory laparotomy. Significant gangrene of the small bowel noted. Hernia was identified, which was reduced. After that the significant improvement in the vasculature noted. But there is still a segment of bowel not healthy. As per the surgeon the wound was not closed. Abdominal wall wound open at this time. Patient was brought to the ICU for close monitoring. Patient is intubated. Currently on paralytics. Also on sedation. And pain management. Currently patient is tachycardic. Sweating noted. Blood sugar checked up which was normal. Blood gas analysis showing evidence of mild acidosis, otherwise good oxygenation noted. Temperature is afebrile. Urinary output is 40-50ml/hr noted. Currently blood pressure is 91/60. Tachycardic 149. Per minute. Labs currently pending. Meanwhile will give the IV fluid bolus. Albumin. May need a blood transfusion. Add vancomycin. Infectious disease evaluation. Close monitoring. Overall prognosis is poor. I spoke to the surgeon. Possible reexploration patient may be needed to have. DVT GI prophylaxis Past Patient History - Infectious Disease Hx of Infectious Diseases: None - Past Medical History & Family History Past Medical History?: Yes - Past Social History Smoking Status: Light Smoker < 10 Cigarettes Daily - CARDIAC Hx Hypercholesterolemia: Yes Hx Hypertension: Yes - PULMONARY Hx Asthma: Yes Hx Sleep Apnea: Yes (mild) - NEUROLOGICAL Hx Neurological Disorder: No - HEENT Hx HEENT Problems: No - RENAL Hx Kidney Stones: Yes - ENDOCRINE/METABOLIC Hx Hypothyroidism: Yes - HEMATOLOGICAL/ONCOLOGICAL Hx Blood Disorders: No - INTEGUMENTARY Hx Dermatological Problems: No - MUSCULOSKELETAL/RHEUMATOLOGICAL Hx Arthritis: Yes Hx Fractures: Yes (right middle finger, right foot) - GASTROINTESTINAL Hx Gastritis: Yes - GENITOURINARY/GYNECOLOGICAL Hx Genitourinary Disorders: No - PSYCHIATRIC Hx Anxiety: Yes Hx Substance Use: No - SURGICAL HISTORY Hx Gastric Bypass Surgery: Yes (2013) - ANESTHESIA Hx Anesthesia: Yes Hx Anesthesia Reactions: No Hx Malignant Hyperthermia: No Meds Allergies/Adverse Reactions: Allergies Allergy/AdvReac Type Severity Reaction Status Date / Time moxifloxacin [From Avelox] Allergy Severe RASH Verified 05/13/18 23:21 - Medications Medications: Current Medications Sodium Chloride (Sodium Chloride 0.9%) 500 mls @ 1,000 mls/hr IV .Q30M ONE Stop: 05/14/18 21:07 Results - Vital Signs Recent Vital Signs: Last Vital Signs Temp 98.3 F 05/14/18 04:05 Pulse 130 H 05/14/18 17:19 Resp 20 05/14/18 04:05 BP 137/95 H 05/14/18 04:05 Pulse Ox 99 05/14/18 05:54 - Labs Result Diagrams: 05/14/18 19:41 05/14/18 19:41 Labs: Laboratory Results - last 24 hr 05/13/18 05/13/18 05/13/18 23:32 23:32 23:46 WBC 16.2 H D RBC 4.41 Hgb 12.4 Hct 36.4 MCV 82.6 D MCH 28.0 MCHC 34.0 RDW 18.9 H Plt Count 521 H D MPV 6.9 L Neut % (Auto) 57.5 Lymph % (Auto) 36.5 [place] % (Auto) 4.3 Eos % (Auto) 0.9 Baso % (Auto) 0.8 Neut # (Auto) 9.3 H Lymph # (Auto) 5.9 H [place] # (Auto) 0.7 Eos # (Auto) 0.1 Baso # (Auto) 0.1 Neutrophils % (Manual) Band Neutrophils % Lymphocytes % (Manual) Monocytes % (Manual) Basophils % (Manual) Platelet Estimate Plt Clumps, EDTA Hypochromasia (manual) Poikilocytosis (manual Anisocytosis (manual) PT INR APTT Puncture Site pCO2 pO2 HCO3 ABG pH ABG Total CO2 ABG O2 Saturation ABG Base Excess Jonathan Test ABG Potassium A-a O2 Difference Respiratory Index Glucose Lactate Vent Mode Mechanical Rate FiO2 Tidal Volume PEEP Sodium 138 Potassium 3.2 L Chloride 101 Carbon Dioxide 23 Anion Gap 17 BUN 7 Creatinine 0.7 Est GFR ( Amer) > 60 Est GFR (Non-Af Amer) > 60 Random Glucose 127 H Lactic Acid Calcium 9.9 Phosphorus Magnesium Total Bilirubin 0.5 AST 38 H ALT 43 Alkaline Phosphatase 134 H Total Protein 7.8 Albumin 4.5 Globulin 3.3 Albumin/Globulin Ratio 1.4 Amylase Lipase 109 Arterial Blood Potassium Urine Color Yellow Urine Clarity Hazy Urine pH 7.0 Ur Specific [place] 1.010 Urine Protein Negative Urine Glucose (UA) Normal Urine Ketones Negative Urine Blood Negative Urine Nitrate Negative Urine Bilirubin Negative Urine Urobilinogen Normal Ur Leukocyte Esterase Trace H Urine WBC (Auto) 2 Urine RBC (Auto) 1 Ur Squamous Epith Cells 30 H Urine Bacteria Few H Urine HCG, Qual Negative Stool Occult Blood Urine Opiates Screen Urine Methadone Screen Ur Barbiturates Screen Ur Phencyclidine Scrn Ur Amphetamines Screen U Benzodiazepines Scrn U Oth Cocaine Metabols U Cannabinoids Screen Blood Type Antibody Screen 05/14/18 05/14/18 05/14/18 02:43 11:56 11:56 WBC 29.8 H D RBC 4.35 Hgb 11.8 Hct 36.2 MCV 83.1 MCH 27.2 MCHC 32.7 L RDW 18.5 H Plt Count 581 H MPV 7.3 Neut % (Auto) 84.3 H Lymph % (Auto) 11.7 L [place] % (Auto) 3.6 Eos % (Auto) 0.2 Baso % (Auto) 0.2 Neut # (Auto) 25.1 H Lymph # (Auto) 3.5 [place] # (Auto) 1.1 H Eos # (Auto) 0.1 Baso # (Auto) 0.1 Neutrophils % (Manual) 74 Band Neutrophils % 5 H Lymphocytes % (Manual) 14 L Monocytes % (Manual) 6 Basophils % (Manual) 1 Platelet Estimate Slightly increased H Plt Clumps, EDTA Present Hypochromasia (manual) Slight Poikilocytosis (manual Slight Anisocytosis (manual) Slight PT 12.2 INR 1.1 APTT 25 Puncture Site pCO2 pO2 HCO3 ABG pH ABG Total CO2 ABG O2 Saturation ABG Base Excess Jonathan Test ABG Potassium A-a O2 Difference Respiratory Index Glucose Lactate Vent Mode Mechanical Rate FiO2 Tidal Volume PEEP Sodium Potassium Chloride Carbon Dioxide Anion Gap BUN Creatinine Est GFR ( Amer) Est GFR (Non-Af Amer) Random Glucose Lactic Acid Calcium Phosphorus Magnesium Total Bilirubin AST ALT Alkaline Phosphatase Total Protein Albumin Globulin Albumin/Globulin Ratio Amylase Lipase Arterial Blood Potassium Urine Color Urine Clarity Urine pH Ur Specific [place] Urine Protein Urine Glucose (UA) Urine Ketones Urine Blood Urine Nitrate Urine Bilirubin Urine Urobilinogen Ur Leukocyte Esterase Urine WBC (Auto) Urine RBC (Auto) Ur Squamous Epith Cells Urine Bacteria Urine HCG, Qual Stool Occult Blood Urine Opiates Screen Negative Urine Methadone Screen Negative Ur Barbiturates Screen Negative Ur Phencyclidine Scrn Negative Ur Amphetamines Screen Negative U Benzodiazepines Scrn Positive U Oth Cocaine Metabols Negative U Cannabinoids Screen Negative Blood Type Antibody Screen 05/14/18 05/14/18 05/14/18 12:12 12:56 12:56 WBC RBC Hgb Hct MCV MCH MCHC RDW Plt Count MPV Neut % (Auto) Lymph % (Auto) [place] % (Auto) Eos % (Auto) Baso % (Auto) Neut # (Auto) Lymph # (Auto) [place] # (Auto) Eos # (Auto) Baso # (Auto) Neutrophils % (Manual) Band Neutrophils % Lymphocytes % (Manual) Monocytes % (Manual) Basophils % (Manual) Platelet Estimate Plt Clumps, EDTA Hypochromasia (manual) Poikilocytosis (manual Anisocytosis (manual) PT INR APTT Puncture Site pCO2 pO2 HCO3 ABG pH ABG Total CO2 ABG O2 Saturation ABG Base Excess Jonathan Test ABG Potassium A-a O2 Difference Respiratory Index Glucose Lactate Vent Mode Mechanical Rate FiO2 Tidal Volume PEEP Sodium 137 Potassium 4.1 Chloride 106 Carbon Dioxide 22 Anion Gap 13 BUN 11 Creatinine 0.6 L Est GFR ( Amer) > 60 Est GFR (Non-Af Amer) > 60 Random Glucose 189 H Lactic Acid Calcium 8.5 L Phosphorus Magnesium Total Bilirubin 0.7 AST 26 ALT 34 Alkaline Phosphatase 112 Total Protein 6.2 L Albumin 3.7 Globulin 2.5 Albumin/Globulin Ratio 1.5 Amylase 97 Lipase 117 Arterial Blood Potassium Urine Color Urine Clarity Urine pH Ur Specific [place] Urine Protein Urine Glucose (UA) Urine Ketones Urine Blood Urine Nitrate Urine Bilirubin Urine Urobilinogen Ur Leukocyte Esterase Urine WBC (Auto) Urine RBC (Auto) Ur Squamous Epith Cells Urine Bacteria Urine HCG, Qual Stool Occult Blood Positive H Urine Opiates Screen Urine Methadone Screen Ur Barbiturates Screen Ur Phencyclidine Scrn Ur Amphetamines Screen U Benzodiazepines Scrn U Oth Cocaine Metabols U Cannabinoids Screen Blood Type O POSITIVE Antibody Screen Negative 05/14/18 05/14/18 05/14/18 12:56 19:34 19:41 WBC 25.8 H RBC 3.96 Hgb 10.7 L Hct 33.0 L MCV 83.4 MCH 26.9 L MCHC 32.3 L RDW 18.9 H Plt Count 317 D MPV 6.6 L Neut % (Auto) 83.7 H Lymph % (Auto) 10.5 L [place] % (Auto) 5.6 Eos % (Auto) 0.0 Baso % (Auto) 0.2 Neut # (Auto) 21.6 H Lymph # (Auto) 2.7 [place] # (Auto) 1.4 H Eos # (Auto) 0.0 Baso # (Auto) 0.1 Neutrophils % (Manual) Band Neutrophils % Lymphocytes % (Manual) Monocytes % (Manual) Basophils % (Manual) Platelet Estimate Plt Clumps, EDTA Hypochromasia (manual) Poikilocytosis (manual Anisocytosis (manual) PT INR APTT Puncture Site Rra pCO2 40 pO2 217 H HCO3 20.5 L ABG pH 7.31 L ABG Total CO2 21.3 L ABG O2 Saturation 98.7 H ABG Base Excess -5.8 L Jonathan Test Pos ABG Potassium 5.1 A-a O2 Difference 90.0 Respiratory Index 0.4 Glucose 154 H Lactate 2.4 H Vent Mode Prvc Mechanical Rate 20 FiO2 50.0 Tidal Volume 500 PEEP 5 Sodium 133.0 Potassium Chloride 109.0 H Carbon Dioxide Anion Gap BUN Creatinine Est GFR ( Amer) Est GFR (Non-Af Amer) Random Glucose Lactic Acid 3.6 H Calcium Phosphorus Magnesium Total Bilirubin AST ALT Alkaline Phosphatase Total Protein Albumin Globulin Albumin/Globulin Ratio Amylase Lipase Arterial Blood Potassium 5.1 Urine Color Urine Clarity Urine pH Ur Specific [place] Urine Protein Urine Glucose (UA) Urine Ketones Urine Blood Urine Nitrate Urine Bilirubin Urine Urobilinogen Ur Leukocyte Esterase Urine WBC (Auto) Urine RBC (Auto) Ur Squamous Epith Cells Urine Bacteria Urine HCG, Qual Stool Occult Blood Urine Opiates Screen Urine Methadone Screen Ur Barbiturates Screen Ur Phencyclidine Scrn Ur Amphetamines Screen U Benzodiazepines Scrn U Oth Cocaine Metabols U Cannabinoids Screen Blood Type Antibody Screen 05/14/18 19:41 WBC RBC Hgb Hct MCV MCH MCHC RDW Plt Count MPV Neut % (Auto) Lymph % (Auto) [place] % (Auto) Eos % (Auto) Baso % (Auto) Neut # (Auto) Lymph # (Auto) [place] # (Auto) Eos # (Auto) Baso # (Auto) Neutrophils % (Manual) Band Neutrophils % Lymphocytes % (Manual) Monocytes % (Manual) Basophils % (Manual) Platelet Estimate Plt Clumps, EDTA Hypochromasia (manual) Poikilocytosis (manual Anisocytosis (manual) PT INR APTT Puncture Site pCO2 pO2 HCO3 ABG pH ABG Total CO2 ABG O2 Saturation ABG Base Excess Jonathan Test ABG Potassium A-a O2 Difference Respiratory Index Glucose Lactate Vent Mode Mechanical Rate FiO2 Tidal Volume PEEP Sodium 135 Potassium 5.3 H Chloride 106 Carbon Dioxide 22 Anion Gap 11 BUN 13 Creatinine 0.8 Est GFR ( Amer) > 60 Est GFR (Non-Af Amer) > 60 Random Glucose 141 H Lactic Acid Calcium 7.1 L Phosphorus 4.0 Magnesium 1.1 L Total Bilirubin 0.6 AST 31 ALT 32 Alkaline Phosphatase 55 Total Protein 4.1 L Albumin 2.2 L D Globulin 1.9 L Albumin/Globulin Ratio 1.2 Amylase Lipase Arterial Blood Potassium Urine Color Urine Clarity Urine pH Ur Specific [place] Urine Protein Urine Glucose (UA) Urine Ketones Urine Blood Urine Nitrate Urine Bilirubin Urine Urobilinogen Ur Leukocyte Esterase Urine WBC (Auto) Urine RBC (Auto) Ur Squamous Epith Cells Urine Bacteria Urine HCG, Qual Stool Occult Blood Urine Opiates Screen Urine Methadone Screen Ur Barbiturates Screen Ur Phencyclidine Scrn Ur Amphetamines Screen U Benzodiazepines Scrn U Oth Cocaine Metabols U Cannabinoids Screen Blood Type Antibody Screen
[2018-05-14] MEDS: Magnesium Sulfate 1 gm in D5W 1 GM/100 ML BAG IVPB SCH ×2 (20:55→21:55)
[2018-05-15 00:55] LABS: BASO % 0.1 % (0.0-2.0); EOS % 0.1 % (0.0-4.0); LYMPH # 3.1 K/uL (1.0-4.3); LYMPH % 12.2 % (20.0-40.0); MEAN CELL VOLUME 83.8 fL (81.0-99.0); MEAN CORPUSCULAR HEMOGLOBIN 26.8 pg (27.0-31.0); MEAN PLATELET VOLUME 6.8 fL (7.2-11.7); MONO # 1.2 K/uL (0.0-0.8); MONO % 4.9 % (0.0-10.0); NEUT # 20.8 K/uL (1.8-7.0); NEUT % 82.7 % (50.0-75.0); RBC 3.34 Mil/uL (3.80-5.20); RED CELL DISTRIBUTION WIDTH 18.9 % (11.5-14.5); WHITE BLOOD COUNT 25.2 K/uL (4.8-10.8)
[2018-05-15] MEDS: Cisatracurium Besylate 100 MG in Dextrose 5% In Water 240 ML IV SCH ×4 (01:49→21:33)
[2018-05-15 01:52] LABS: ALB/GLOB RATIO 1.2 (1.0-2.1); ALBUMIN 2.1 g/dL (3.5-5.0); ALT/SGPT 36 U/L (9-52); AST/SGOT 22 U/L (14-36); BLOOD UREA NITROGEN 15 mg/dL (7-17); CALCIUM 7.2 mg/dl (8.6-10.4); GFR NON-AFRICAN AMERICAN > 60
[2018-05-15] MEDS: Lactated Ringer's 1,000 ML IV SCH ×2 (02:18→04:52)
[2018-05-15] MEDS: Piperacillin/Tazobact 3.375 GM in Sodium Chloride 100 ML IVPB SCH ×2 (04:00→09:03)
--- NOTE | 2018-05-15 04:32 | OP ---
Copied To: Gómez Harley MD Attending MD: Gómez Harley MD PROCEDURE DATE: 05/14/2018 PREOPERATIVE DIAGNOSES: 1. Internal hernia, status post gastric bypass. 2. Mesenteric ischemia. POSTOPERATIVE DIAGNOSES: 1. Internal hernia, status post gastric bypass. 2. Mesenteric ischemia. PROCEDURES DONE: 1. Exploratory laparoscopy. 2. Exploratory laparotomy and reduction of internal hernia. 3. Drainage of intra-abdominal multiple collections. 4. Temporary abdominal closure. 5. Esophagogastroduodenoscopy done by Dr. Denise. SURGEON: Gómez Harley MD ASSISTANTS: 1. Roz Denise MD 2. Maggie Dailey DO, PGY-4 Resident. ANESTHESIA: General endotracheal tube anesthesia. ESTIMATED BLOOD LOSS: Around 100 mL. DRAINS: One JONAH drain was placed in the pelvis. COMPLICATIONS: None. INTRAOPERATIVE FINDINGS: 1. Laparoscopic exploration was suggestive of complete ischemia of the small bowel and multiple fluid collections in the pelvis as well as in both paracolic gutters. 2. Exploratory laparotomy suggestive of ischemia of all small bowel and after reduction of the internal hernia, 80% of the small bowl was viable with normal blood supply and the [place] limb was mildly ischemic and temporary abdominal closure was done for the proper resuscitation and optimization of the patient to see the demarcation of the ischemia of the [place] limb. DESCRIPTION OF PROCEDURE: On intraoperative steps, this 37-year-old female was admitted in the hospital with a diagnosis of mesenteric ischemia. The patient had a gastric bypass done in 2013. The patient was consented for the urgent exploratory laparotomy. The patient was brought to the OR, placed supine on the operating table. Using the Visiport technique, the peritoneal cavity was entered, pneumo was created, and the patient was found to have complete ischemia of the small bowel with multiple collections in the pelvis as well as both paracolic gutters. After that, the decision was made to do the exploratory laparotomy. Incision was made and the peritoneal cavity was entered. The patient was found to have complete ischemia of the full length of the small bowel, and first internal hernia was reduced. The full length of small bowel regained the blood supply, and it was pink with normal blood flow. The [place] limb still appeared to be ischemic. Some part of the [place] limb also appeared to be regaining the blood supply, so decision was made to do the temporary closure, and now the suction irrigation of all the abdominal collections was done. The lysis of adhesions was done also where the internal hernia causing adhesion. After that the Sky drain was placed, and the skin only closure was done. The esophagogastroduodenoscopy was done by Dr. Denise. The stomach pouch appeared to be viable. The mucosal necrosis in the proximal part of the jejunum was identified, and suction irrigation of the jejunal limb was done. The patient kept intubated and paralyzed and was sent to the ICU for further care. Counts of the instrument and gauze were correct. There was a [place] drain that was kept to gustavo the main alimentary limb that was left in the abdominal cavity to remove it during the second operation that was planned after 48 to 72 hours after proper resuscitation and optimization of the patient. The patient tolerated the procedure well. Counts of the instrument and gauze were correct. There were no apparent complications. Gómez Harley MD MTDTasha
[2018-05-15] MEDS: Pantoprazole 80 MG in Sodium Chloride 0.9% 100 ML IVPB SCH (04:53)
[2018-05-15] MEDS: White Petrolatum/Mineral Oil Ophth Oint(3.5 gm) OU SCH ×5 (05:00→19:28)
[2018-05-15] MEDS ORDERED: Lactated Ringer's 1,000 ML IV ONE (05:21)
[2018-05-15] MEDS ORDERED: Sodium Chloride 0.9% 1,000 ML IV ONE (05:22)
[2018-05-15 05:56] LABS: ARTERIAL BLOOD GAS HCO3 19.8 mmol/L (21-28); ARTERIAL BLOOD GAS O2 SAT 98.4 % (95-98); ARTERIAL BLOOD GAS PCO2 38 mm/Hg (35-45); ARTERIAL BLOOD GAS PH 7.31 (7.35-7.45); ARTERIAL BLOOD GAS PO2 132 mm/Hg (80-100); ARTERIAL BLOOD GAS TCO2 20.3 mmol/L (22-28)
[2018-05-15] MEDS: Sodium Chloride 0.9% 1,000 ML IV SCH ×3 (07:11→19:43)
[2018-05-15] MEDS ORDERED: Albumin Human 25% (12.5 gm/50 ml) IV ONE (08:19)
--- NOTE | 2018-05-15 08:22 | RAD ---
Date of service: 05/15/2018 HISTORY: intubated COMPARISON: Portable chest 05/14/2018. FINDINGS: LUNGS: Endotracheal tube unchanged in position as well as right central venous line. No acute pulmonary disease appreciable bilaterally. PLEURA: No significant pleural effusion identified, no pneumothorax apparent. CARDIOVASCULAR: Normal. OSSEOUS STRUCTURES: No significant abnormalities. VISUALIZED UPPER ABDOMEN: Normal. OTHER FINDINGS: None. IMPRESSION: No interval acute cardiopulmonary disease appreciated.
--- NOTE | 2018-05-15 08:22 | CP.PCM.PN ---
Subjective - Date & Time of Evaluation Date of Evaluation: 05/15/18 Time of Evaluation: 08:00 - Subjective Subjective: Medical Attending Note: Patient seen and examined this morning. Patient remains intubated, sedated, paralayzed post-op day 1 for emergent surgery for ischemic bowel/small bowel obstruction. Unable to review ROS given severity of clinical status. Discussed with surgery resident, Lorraine Dailey PGY-4, patient to have second surgery tomorrow with assistance of bariatric surgeon, Dr Jimenez. Objective - Vital Signs/Intake and Output Vital Signs (last 24 hours): Temp Pulse Resp BP Pulse Ox 99.1 F 146 H 20 103/74 100 05/15/18 04:00 05/15/18 07:20 05/15/18 07:20 05/15/18 07:00 05/15/18 07:20 Intake and Output: 05/15/18 05/15/18 06:59 18:59 Intake Total 3878.6 238.1 Output Total 1025 Balance 2853.6 238.1 - Medications Medications: Current Medications Albumin Human (Albumin Human 25% (12.5 Gm/50 Ml)) 50 gm IV ONCE ONE Stop: 05/15/18 08:20 Artificial Tears (Lacri-Lube) 1 gm OU Q4H KATELYN Last Admin: 05/15/18 05:00 Dose: 1 gm Famotidine (Pepcid) 20 mg IVP Q12 KATELYN Last Admin: 05/14/18 22:41 Dose: Not Given Piperacillin Sod/Tazobactam (Sod 3.375 gm/ Sodium Chloride) 100 mls @ 200 mls/ hr IVPB Q6H KATELYN PRN Reason: Protocol Last Admin: 05/15/18 04:00 Dose: 200 mls/hr Pantoprazole Sodium 80 mg/ (Sodium Chloride) 100 mls @ 10 mls/hr IVPB .Q10H KATELYN PRN Reason: 8 MG/HR Last Admin: 05/15/18 04:53 Dose: 10 mls/hr Cisatracurium Besylate 100 mg/ (Dextrose) 250 mls @ 36.74 mls/hr IV .Q6H49M KATELYN ; 3 MCG/KG/MIN PRN Reason: Protocol Last Admin: 05/15/18 01:49 Dose: 3 mcg/kg/min, 36.74 mls/hr Fentanyl Citrate 2,500 mcg/ (Sodium Chloride) 250 mls @ 16.32 mls/hr IV .[id number] KATELYN; 2 MCG/KG/HR PRN Reason: Protocol Last Admin: 05/15/18 08:04 Dose: 2 mcg/kg/hr, 16.32 mls/hr Propofol (Diprivan) 1,000 mg in 100 mls @ 2.449 mls/hr IV .Q24H PRN; Protocol; 5 MCG/KG/MIN PRN Reason: TITRATE PER MD ORDER Last Titration: 05/15/18 03:26 Dose: 20 mcg/kg/min, 9.798 mls/hr Vancomycin/Sodium Chloride (Vancomycin 1 Gm/Ns 200 Ml) 1 gm in 200 mls @ 166.7 mls/hr IVPB Q24H KATELYN PRN Reason: Protocol Stop: 05/19/18 20:16 Last Admin: 05/14/18 20:34 Dose: 166.7 mls/hr Norepinephrine Bitartrate 4 mg (/ Sodium Chloride) 254 mls @ 15.24 mls/hr IV .[id number] PRN; Protocol; 4 MCG/MIN PRN Reason: TITRATE PER MD ORDER Last Admin: 05/15/18 05:44 Dose: 4 mcg/min, 15.24 mls/hr Sodium Chloride (Sodium Chloride 0.9%) 1,000 mls @ 150 mls/hr IV .Q6H40M [facility] Last Admin: 05/15/18 07:11 Dose: 150 mls/hr Ondansetron HCl (Zofran Inj) 4 mg IVP Q4 PRN PRN Reason: Nausea/Vomiting - Labs Labs: 05/15/18 00:50 05/15/18 00:13 PT 12.2 SECONDS (9.7-12.2) 05/14/18 11:56 INR 1.1 05/14/18 11:56 APTT 25 SECONDS (21-34) 05/14/18 11:56 - Constitutional Appears: In Acute Distress, Chronically Ill - Head Exam Head Exam: NORMAL INSPECTION Additional comments: sweating intubated - Eye Exam Eye Exam: EOMI - ENT Exam ENT Exam: Mucous Membranes Dry - Respiratory Exam Respiratory Exam: Decreased Breath Sounds. absent: Rales, Rhonchi - Cardiovascular Exam Cardiovascular Exam: Tachycardia, +S1, +S2 - GI/Abdominal Exam GI & Abdominal Exam: Hypoactive Bowel Sounds Additional comments: Patient's abdomen is in abdominal binder; is dirty with abdominal fluid +ojeda - Exam Additional comments: +ojeda - Neurological Exam Additional comments: sedated - Skin Skin Exam: Pallor Assessment and Plan (1) Ischemic bowel disease Status: Acute (2) Obesity (BMI 30-39.9) Status: Acute (3) Status post gastric bypass for obesity Status: Acute (4) Small bowel obstruction Status: Acute (5) Prophylactic measure Status: Acute Attending/Attestation - Attestation I have personally seen and examined this patient.: Yes I have fully participated in the care of the patient.: Yes I have reviewed all pertinent clinical information, including history, physical exam and plan: Yes Notes (Text): (1) Ischemic bowel disease Assessment & Plan: * Dr. Harley (surgery) on the case-->help appreciated * Dr. Samara Denise (Surgery) on the case-->help appreciated * Preoperative/intraoperative/postoperative management per surgery * Dr. Alvarado (GI) on the case-->help appreciated * Dr. Rivera (ID) on the case-->help appreciated * Chest xray (05/14/18): no infiltrate, pleural effusion, or pneumothorax b/l. Diminished inspiratory volume question. No acute cardiovascular disease. * Lactic: 3.6 (prior OR)-->2.4 (post OR)-->2.3 * Patient has had 2 bloody bowel movements started 05/14/18. Patient's rectal: blood. She had reported abdominal pain has worsening since night of admission. Patient required emergent surgical intervention on 05/14/18 and transferred to ICU. Patient will need a second surgery likely tomorrow on 05/16/18. * Per operative note (05/14/18): Diagnostic laparoscopy, Exploratory laparotomy, Reduction of internal hernia, Lysis of adhesions, Drainage of abdominal collections, temporary abdominal closure, EGD * Ischemia of yenni limb, internal hernia. Naveed drain stitched to distal common limb * ICU evaluation noted: Patient underwent emergency laparotomy for possible ischemic bowel. Patient had GI bleed. In the operating room patient underwent extensive exploratory laparotomy. Significant gangrene of the small bowel noted. Hernia was identified, which was reduced.After that the significant improvement in the vasculature noted. But there is still a segment of bowel not healthy (portion of the alimentary canal from prior gastric bypass surgery--> clarified with surgery resident), As per the surgeon the wound was not closed. Abdominal wall wound open at this time. Patient is intubated. Currently on paralytics. Also on sedation.And pain management. * Patient to have second surgery procedure tomorrow 05/16/18 with bariatric surgeon, Dr Jimenez give the nature of the bowel involved per discussion with surgery resident. * IIV abx. Zosyn 3/375 IV Q6H (active since 05/14/18) and Vancomycin 1gram IV Q24H (active 05/14/18) * Placed ID consult Status: Acute (2) Small bowel obstruction Assessment & Plan: * Secondary to hernia * CT abdomen/Pelvis (05/13/18): Writhing appearance of mesentric vessels. Mesentric edema. No evidence of bowel obstruction. Whirling appearance of mesentric vessels is nonspecific. Prominent mesentric lymph nodes. Mesentric edema. (preop) * Patient has had 2 bloody bowel movements started 05/14/18. Patient's rectal: blood. She had reported abdominal pain has worsening since night of admission. Patient required emergent surgical intervention on 05/14/18 and transferred to ICU. Patient will need a second surgery likely tomorrow on 05/16/18. * Per operative note (05/14/18): Diagnostic laparoscopy, Exploratory laparotomy, Reduction of internal hernia, Lysis of adhesions, Drainage of abdominal collections, temporary abdominal closure, EGD * Ischemia of yenni limb, internal hernia. Naveed drain stitched to distal common limb * ICU evaluation noted: Patient underwent emergency laparotomy for possible ischemic bowel. Patient had GI bleed. In the operating room patient underwent extensive exploratory laparotomy. Significant gangrene of the small bowel noted. Hernia was identified, which was reduced.After that the significant improvement in the vasculature noted. But there is still a segment of bowel not healthy (portion of the alimentary canal from prior gastric bypass surgery--> clarified with surgery resident), As per the surgeon the wound was not closed. Abdominal wall wound open at this time. Patient is intubated. Currently on paralytics. Also on sedation.And pain management. * Patient to have second surgery procedure tomorrow 05/16/18 with bariatric surgeon, Dr Jimenez give the nature of the bowel involved per discussion with surgery resident. Status: Acute (3) Obesity (BMI 30-39.9) Assessment & Plan: * s/p gastric bypass surgery in 2013 * Operative note (2013): Yenni-en-Y gastric bypass surgery Status: Acute (4) Status post gastric bypass for obesity Assessment & Plan: * status post gastric bypass 2013 * Operative note (2013): Yenni-en-Y gastric bypass surgery Status: Acute (5) History of Asthma Assessment & Plan: * Patient not in acute exacerbation prior to OR * Patient is intubated on vent at this time post operative day 1 (6) Leukocytosis Assessment & Plan: * Likely secondary to ischemic bowel secondary to small bowel obstruction () * Patient is postoperative day 1 will require further surgery intervention (7) Diabetes Mellitus (Type 2) Assessment & Plan: * From prior note: * Admittedly non-compliant - has not taken Januvia for one year * Accuchecks Q6H * Hypoglycemic protocol * HbA1c - 6.3 (03/10/17) * Repeat Hgba1c * History of gastric bypass surgery (8) Hx of HTN (hypertension) Assessment & Plan: * Since Gastric Bypass has not taken meds (9) Hx of Hypothyroid Assessment & Plan: * From prior note: * Pt admits non-compliance (10) Hypercholesterolemia Assessment & Plan: * From prior note: * Pt not taking meds * LDL 138, HDL 67, Tchol 220, Trig 112 * History of gastric bypass surgery (11) Anxiety Assessment & Plan: * Patient was taking Xanax for anxiety noted in prior note (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
[2018-05-15] MEDS: Propofol 10 mg/ml 1,000 MG/100 ML VIAL IV PRN ×3 (08:24→23:20)
[2018-05-15] MEDS ORDERED: Dextrose 50% SYRINGE Inj (50 ml) IV PRN (08:36)
[2018-05-15] MEDS ORDERED: Glucagon Recombinant 1 mg Inj IM PRN (08:36)
[2018-05-15] MEDS ORDERED: Acetaminophen IV 1,000 MG in Premixed IV 1 EA IV ONE (08:39)
--- NOTE | 2018-05-15 09:07 | CP.PCM.PN ---
Subjective - Date & Time of Evaluation Date of Evaluation: 05/15/18 Time of Evaluation: 09:05 - Subjective Subjective: F/u GI bleed. Above noted. s/p OR - SB gangrene. Intubated. +RB. + fever No hematemesis, SZ, hematuria, hemoptysis, tremor, rash, arthralgia, cough Objective - Vital Signs/Intake and Output Vital Signs (last 24 hours): Temp Pulse Resp BP Pulse Ox 99.1 F 146 H 20 103/74 100 05/15/18 04:00 05/15/18 07:20 05/15/18 07:20 05/15/18 07:00 05/15/18 07:20 Intake and Output: 05/15/18 05/15/18 06:59 18:59 Intake Total 3878.6 533.2 Output Total 1025 70 Balance 2853.6 463.2 - Medications Medications: Current Medications Artificial Tears (Lacri-Lube) 1 gm OU Q4H KATELYN Last Admin: 05/15/18 08:24 Dose: 1 gm Dextrose (Dextrose 50% Inj) 0 ml IV STAT PRN; Protocol PRN Reason: Hypoglycemia Protocol Dextrose (Glutose 15) 0 gm PO ONCE PRN; Protocol PRN Reason: Hypoglycemia Protocol Glucagon (Glucagen Diagnostic Kit) 0 mg IM STAT PRN; Protocol PRN Reason: Hypoglycemia Protocol Piperacillin Sod/Tazobactam (Sod 3.375 gm/ Sodium Chloride) 100 mls @ 200 mls/ hr IVPB Q6H KATELYN PRN Reason: Protocol Last Admin: 05/15/18 09:03 Dose: 200 mls/hr Pantoprazole Sodium 80 mg/ (Sodium Chloride) 100 mls @ 10 mls/hr IVPB .Q10H KATELYN PRN Reason: 8 MG/HR Last Admin: 05/15/18 04:53 Dose: 10 mls/hr Cisatracurium Besylate 100 mg/ (Dextrose) 250 mls @ 36.74 mls/hr IV .Q6H49M KATELYN ; 3 MCG/KG/MIN PRN Reason: Protocol Last Admin: 05/15/18 01:49 Dose: 3 mcg/kg/min, 36.74 mls/hr Fentanyl Citrate 2,500 mcg/ (Sodium Chloride) 250 mls @ 16.32 mls/hr IV .[id number] AKTELYN; 2 MCG/KG/HR PRN Reason: Protocol Last Titration: 05/15/18 08:20 Dose: 4 mcg/kg/hr, 32.65 mls/hr Propofol (Diprivan) 1,000 mg in 100 mls @ 2.449 mls/hr IV .Q24H PRN; Protocol; 5 MCG/KG/MIN PRN Reason: TITRATE PER MD ORDER Last Admin: 05/15/18 08:24 Dose: 20 mcg/kg/min, 9.798 mls/hr Vancomycin/Sodium Chloride (Vancomycin 1 Gm/Ns 200 Ml) 1 gm in 200 mls @ 166.7 mls/hr IVPB Q24H KATELYN PRN Reason: Protocol Stop: 05/19/18 20:16 Last Admin: 05/14/18 20:34 Dose: 166.7 mls/hr Norepinephrine Bitartrate 4 mg (/ Sodium Chloride) 254 mls @ 15.24 mls/hr IV .[id number] PRN; Protocol; 4 MCG/MIN PRN Reason: TITRATE PER MD ORDER Last Admin: 05/15/18 05:44 Dose: 4 mcg/min, 15.24 mls/hr Sodium Chloride (Sodium Chloride 0.9%) 1,000 mls @ 150 mls/hr IV .Q6H40M [facility] Last Admin: 05/15/18 07:11 Dose: 150 mls/hr Dextrose (Dextrose 5% In Water 1000 Ml) 1,000 mls @ 0 mls/hr IV .Q0M PRN; Protocol; Per Protocol PRN Reason: Hypoglycemia Protocol Ondansetron HCl (Zofran Inj) 4 mg IVP Q4 PRN PRN Reason: Nausea/Vomiting - Labs Labs: 05/15/18 00:50 05/15/18 00:13 PT 12.2 SECONDS (9.7-12.2) 05/14/18 11:56 INR 1.1 05/14/18 11:56 APTT 25 SECONDS (21-34) 05/14/18 11:56 - ENT Exam Additional comments: intubated - Respiratory Exam Respiratory Exam: Clear to Ausculation Bilateral - Cardiovascular Exam Cardiovascular Exam: Tachycardia - GI/Abdominal Exam GI & Abdominal Exam: absent: Normal Bowel Sounds Additional comments: s/p surg. - Neurological Exam Neurological Exam: absent: Alert, Awake - Skin Skin Exam: Intact Assessment and Plan (1) Rectal bleeding Assessment & Plan: Due to ischemic bowel. Further plans as per surgery team. Status: Acute (2) Leucocytosis Assessment & Plan: Sl decreased Status: Acute (3) Small bowel obstruction due to adhesions Assessment & Plan: SB gangrene seen at surgery Status: Acute (4) Abdominal pain Status: Acute (5) Asthma Status: Acute (6) HTN (hypertension) Status: Acute (7) Obesity (BMI 30-39.9) Status: Acute
--- NOTE | 2018-05-15 09:32 | CP.PCM.PN ---
Subjective - Date & Time of Evaluation Date of Evaluation: 05/15/18 Time of Evaluation: 09:19 - Subjective Subjective: POD1, relief of internal hernia and lysis of adhesions, opening of fluid pockets , abd closed without closure of facia with intention of going back to assess bowel, h/o gastric bypass, last night reduced urine ouput improved with bolus fluid this morning, drop in albumin, hemoglobin, temp 101F, rectal, patient is paralysed, sedated with fentanyl and propofol, levophed 4mcg going, leukocytosis. Zosyn, ppi drip other meds noted. Objective - Vital Signs/Intake and Output Vital Signs (last 24 hours): Temp Pulse Resp BP Pulse Ox 99.1 F 146 H 20 103/74 100 05/15/18 04:00 05/15/18 07:20 05/15/18 07:20 05/15/18 07:00 05/15/18 07:20 Intake and Output: 05/15/18 05/15/18 06:59 18:59 Intake Total 3878.6 533.2 Output Total 1025 70 Balance 2853.6 463.2 - Medications Medications: Current Medications Artificial Tears (Lacri-Lube) 1 gm OU Q4H KATELYN Last Admin: 05/15/18 08:24 Dose: 1 gm Dextrose (Dextrose 50% Inj) 0 ml IV STAT PRN; Protocol PRN Reason: Hypoglycemia Protocol Dextrose (Glutose 15) 0 gm PO ONCE PRN; Protocol PRN Reason: Hypoglycemia Protocol Glucagon (Glucagen Diagnostic Kit) 0 mg IM STAT PRN; Protocol PRN Reason: Hypoglycemia Protocol Piperacillin Sod/Tazobactam (Sod 3.375 gm/ Sodium Chloride) 100 mls @ 200 mls/ hr IVPB Q6H KATELYN PRN Reason: Protocol Last Admin: 05/15/18 09:03 Dose: 200 mls/hr Pantoprazole Sodium 80 mg/ (Sodium Chloride) 100 mls @ 10 mls/hr IVPB .Q10H KATELYN PRN Reason: 8 MG/HR Last Admin: 05/15/18 04:53 Dose: 10 mls/hr Cisatracurium Besylate 100 mg/ (Dextrose) 250 mls @ 36.74 mls/hr IV .Q6H49M KATELYN ; 3 MCG/KG/MIN PRN Reason: Protocol Last Admin: 05/15/18 01:49 Dose: 3 mcg/kg/min, 36.74 mls/hr Fentanyl Citrate 2,500 mcg/ (Sodium Chloride) 250 mls @ 16.32 mls/hr IV .[id number] KATELYN; 2 MCG/KG/HR PRN Reason: Protocol Last Titration: 05/15/18 08:20 Dose: 4 mcg/kg/hr, 32.65 mls/hr Propofol (Diprivan) 1,000 mg in 100 mls @ 2.449 mls/hr IV .Q24H PRN; Protocol; 5 MCG/KG/MIN PRN Reason: TITRATE PER MD ORDER Last Admin: 05/15/18 08:24 Dose: 20 mcg/kg/min, 9.798 mls/hr Vancomycin/Sodium Chloride (Vancomycin 1 Gm/Ns 200 Ml) 1 gm in 200 mls @ 166.7 mls/hr IVPB Q24H KATELYN PRN Reason: Protocol Stop: 05/19/18 20:16 Last Admin: 05/14/18 20:34 Dose: 166.7 mls/hr Norepinephrine Bitartrate 4 mg (/ Sodium Chloride) 254 mls @ 15.24 mls/hr IV .[id number] PRN; Protocol; 4 MCG/MIN PRN Reason: TITRATE PER MD ORDER Last Admin: 05/15/18 05:44 Dose: 4 mcg/min, 15.24 mls/hr Sodium Chloride (Sodium Chloride 0.9%) 1,000 mls @ 150 mls/hr IV .Q6H40M [facility] Last Admin: 05/15/18 07:11 Dose: 150 mls/hr Dextrose (Dextrose 5% In Water 1000 Ml) 1,000 mls @ 0 mls/hr IV .Q0M PRN; Protocol; Per Protocol PRN Reason: Hypoglycemia Protocol Albumin Human (Albumin Human 25% (12.5 Gm/50 Ml)) 50 mls @ 100 mls/hr IV Q30M [facility] Stop: 05/15/18 11:59 Last Admin: 05/15/18 09:15 Dose: 100 mls/hr Ondansetron HCl (Zofran Inj) 4 mg IVP Q4 PRN PRN Reason: Nausea/Vomiting - Labs Labs: 05/15/18 00:50 05/15/18 00:13 PT 12.2 SECONDS (9.7-12.2) 05/14/18 11:56 INR 1.1 05/14/18 11:56 APTT 25 SECONDS (21-34) 05/14/18 11:56 - Additional Findings Additional findings: * Patient is unresponsive, febrile, sedated as she is paralysed * NG cofee ground look but small amount on canister * Neck TLC on right side * CVS regular tachycardia * PA dressing noticed, had drain, abdominal bider * Ext 1+ edema * WORK [employer] paralysed * Skin turgor jaguar Assessment and Plan - Assessment and Plan (Free Text) Assessment: POD1, relief of internal hernia and lysis of adhesions, opening of fluid pockets , abd closed without closure of facia with intention of going back to assess bowel, h/o gastric bypass, last night reduced urine ouput improved with bolus fluid this morning, drop in albumin, hemoglobin, temp 101F, rectal, patient is paralysed, sedated with fentanyl and propofol, levophed 4mcg going, leukocytosis. Zosyn, ppi drip other meds noted. Plan: * Albumin 50 g, then fluid bolus, to improve intravascular volume and prevent 3rd spacing at total protein is 3.9g. * Monitor urine output * Continue empiric abx, ppi * Titrate nimbex with TO4 to 1-2 stimulus, sedate mean while. * Surgery following up with patient if persistent, worsening acidosis, sepsis, may need sooner lap eval * SCD for dvt prophylaxis * See orders for detail.
[2018-05-15 10:07] LABS: BASO % 0.1 % (0.0-2.0); EOS % 0.1 % (0.0-4.0); HEMOGLOBIN 8.1 g/dL (11.0-16.0); LYMPH # 2.7 K/uL (1.0-4.3); LYMPH % 8.7 % (20.0-40.0); MEAN CELL VOLUME 84.3 fL (81.0-99.0); MEAN CORPUSCULAR HGB CONC 32.1 g/dL (33.0-37.0); MEAN PLATELET VOLUME 7.2 fL (7.2-11.7); MONO # 1.3 K/uL (0.0-0.8); MONO % 4.1 % (0.0-10.0); NEUT # 26.4 K/uL (1.8-7.0); PLATELET COUNT 201 K/uL (130-400); RED CELL DISTRIBUTION WIDTH 18.2 % (11.5-14.5)
[2018-05-15 10:14] LABS: WHITE BLOOD COUNT 30.3 K/uL (4.8-10.8)
[2018-05-15 10:43] LABS: ALB/GLOB RATIO 1.1 (1.0-2.1); CALCIUM 6.8 mg/dl (8.6-10.4)
[2018-05-15 10:58] LABS: INR 1.8; PROTHROMBIN TIME 19.7 SECONDS (9.7-12.2)
--- NOTE | 2018-05-15 11:42 | CP.PCM.PN ---
<Maggie Dailey - Last Filed: 05/15/18 12:19> Subjective - Date & Time of Evaluation Date of Evaluation: 05/15/18 Time of Evaluation: 07:00 - Subjective Subjective: GENERAL SURGERY PROGRESS NOTE FOR DR. HARLEY Patient seen and examined at bedside in ICU. Pt remains intubated, sedated on propofol, fentanyl, paralyzed on Nimbex. Overnight, pt became hypotensive to 70s systolic, started on levo. This Am, on Levo 4 which was titrated down to 2 this AM. Poor urine output overnight, bolused with some improvement in urine output. Objective - Vital Signs/Intake and Output Vital Signs (last 24 hours): Temp Pulse Resp BP Pulse Ox 99.1 F 138 H 20 95/65 L 100 05/15/18 04:00 05/15/18 09:30 05/15/18 09:30 05/15/18 09:30 05/15/18 09:30 Intake and Output: 05/15/18 05/15/18 06:59 18:59 Intake Total 4114.9 1385.9 Output Total 1325 280 Balance 2789.9 1105.9 - Medications Medications: Current Medications Artificial Tears (Lacri-Lube) 1 gm OU Q4H [facility]AT[facility]N Last Admin: 05/15/18 08:24 Dose: 1 gm Dextrose (Dextrose 50% Inj) 0 ml IV STAT PRN; Protocol PRN Reason: Hypoglycemia Protocol Dextrose (Glutose 15) 0 gm PO ONCE PRN; Protocol PRN Reason: Hypoglycemia Protocol Glucagon (Glucagen Diagnostic Kit) 0 mg IM STAT PRN; Protocol PRN Reason: Hypoglycemia Protocol Pantoprazole Sodium 80 mg/ (Sodium Chloride) 100 mls @ 10 mls/hr IVPB .Q10H KAT[facility]N PRN Reason: 8 MG/HR Last Admin: 05/15/18 04:53 Dose: 10 mls/hr Cisatracurium Besylate 100 mg/ (Dextrose) 250 mls @ 36.74 mls/hr IV .Q6H49M KATELYN ; 3 MCG/KG/MIN PRN Reason: Protocol Last Titration: 05/15/18 10:00 Dose: 2 mcg/kg/min, 24.49 mls/hr Fentanyl Citrate 2,500 mcg/ (Sodium Chloride) 250 mls @ 16.32 mls/hr IV .[id number] KATELYN; 2 MCG/KG/HR PRN Reason: Protocol Last Titration: 05/15/18 08:20 Dose: 4 mcg/kg/hr, 32.65 mls/hr Propofol (Diprivan) 1,000 mg in 100 mls @ 2.449 mls/hr IV .Q24H PRN; Protocol; 5 MCG/KG/MIN PRN Reason: TITRATE PER MD ORDER Last Admin: 05/15/18 08:24 Dose: 20 mcg/kg/min, 9.798 mls/hr Norepinephrine Bitartrate 4 mg (/ Sodium Chloride) 254 mls @ 15.24 mls/hr IV .[id number] PRN; Protocol; 4 MCG/MIN PRN Reason: TITRATE PER MD ORDER Last Titration: 05/15/18 11:00 Dose: 2 mcg/min, 7.62 mls/hr Sodium Chloride (Sodium Chloride 0.9%) 1,000 mls @ 150 mls/hr IV .Q6H40M [facility] Last Admin: 05/15/18 07:11 Dose: 150 mls/hr Dextrose (Dextrose 5% In Water 1000 Ml) 1,000 mls @ 0 mls/hr IV .Q0M PRN; Protocol; Per Protocol PRN Reason: Hypoglycemia Protocol Albumin Human (Albumin Human 25% (12.5 Gm/50 Ml)) 50 mls @ 100 mls/hr IV Q30M [facility] Stop: 05/15/18 11:59 Last Admin: 05/15/18 10:03 Dose: 100 mls/hr Metronidazole (Flagyl) 500 mg in 100 mls @ 100 mls/hr IVPB Q8H [facility] PRN Reason: Protocol Gentamicin Sulfate 350 mg/ (Sodium Chloride) 108.75 mls @ 100 mls/hr IVPB ONCE ONE PRN Reason: Protocol Stop: 05/15/18 12:05 Meropenem 1 gm/ Sodium (Chloride) 100 mls @ 100 mls/hr IVPB Q8H [facility] PRN Reason: Protocol Ondansetron HCl (Zofran Inj) 4 mg IVP Q4 PRN PRN Reason: Nausea/Vomiting - Labs Labs: 05/15/18 09:54 05/15/18 09:54 PT 19.7 SECONDS (9.7-12.2) H D 05/15/18 09:54 INR 1.8 D 05/15/18 09:54 APTT 32 SECONDS (21-34) D 05/15/18 09:54 - Constitutional Appears: Toxic - Head Exam Additional comments: diaphoretic - Respiratory Exam Additional comments: on mechanical ventilation - Cardiovascular Exam Cardiovascular Exam: Tachycardia - GI/Abdominal Exam GI & Abdominal Exam: Soft Additional comments: Dressing clean/dry/intact Abdominal binder in place Sky drain in place with serosanguinous drainage, 230cc overnight - Neurological Exam Neurological Exam: absent: Awake Additional comments: sedated - Skin Skin Exam: Pallor Assessment and Plan - Assessment and Plan (Free Text) Assessment: 37yo F with PMHx of yenni-en-Y gastric bypass in 2014 now with bowel ischemia secondary to internal hernia. Pt POD#1 s/p Exploratory laparotomy, Reduction of internal hernia, LOS, Drainage of abdominal collections, temporary abdominal closure, EGD. Pt now in septic shock - Febrile, tachycardic, hypotensive on Levophed - BP improving, on low dose pressors, recommend titrate off pressors - Continue nimbex - WBC increased to 30, antibiotics changed to Flagyl, Gentamycin, Merrem per ID - INR increased to 1.8, transfuse 2 FFP - Hgb decreased to 8.1, transfuse 2 PRBC - Monitor urine output to keep >0.5mg/kg/hr - Fluids switched from LR to NS due to hyperkalemia, EKG ordered - Cr and LFTs trending up - Labs Q6 - Repeat ABG - Continue NPO w/ NG tube to low intermittent suction, pt on protonix drip for upper GI bleed - Monitor for abdominal compartment syndrome - Will FU cx from OR of peritoneal fluid - Plan for 2nd look tomorrow in OR with Dr. Mccray, bariatric surgeon - Discussed plan with Dr. Cricket Dailey PGY-4 <Gómez Harley - Last Filed: 05/18/18 16:51> Objective - Vital Signs/Intake and Output Vital Signs (last 24 hours): Temp Pulse Resp BP Pulse Ox 100.5 F H 128 H 19 152/92 H 98 05/18/18 12:00 05/18/18 14:03 05/18/18 12:01 05/18/18 14:00 05/18/18 12:01 Intake and Output: 05/18/18 05/18/18 06:59 18:59 Intake Total 1933.7 904 Output Total 1870 745 Balance 63.7 159 - Medications Medications: Current Medications Dextrose (Dextrose 50% Inj) 0 ml IV STAT PRN; Protocol PRN Reason: Hypoglycemia Protocol Last Admin: 05/16/18 23:40 Dose: 50 ml Dextrose (Glutose 15) 0 gm PO ONCE PRN; Protocol PRN Reason: Hypoglycemia Protocol Glucagon (Glucagen Diagnostic Kit) 0 mg IM STAT PRN; Protocol PRN Reason: Hypoglycemia Protocol Heparin Sodium (Porcine) (Heparin) 5,000 units SC Q12 [facility] Last Admin: 05/18/18 10:13 Dose: 5,000 units Hydromorphone HCl (Dilaudid) 1 mg IVP Q4H [facility] Last Admin: 05/18/18 14:57 Dose: 1 mg Dextrose (Dextrose 5% In Water 1000 Ml) 1,000 mls @ 0 mls/hr IV .Q0M PRN; Protocol; Per Protocol PRN Reason: Hypoglycemia Protocol Metronidazole (Flagyl) 500 mg in 100 mls @ 100 mls/hr IVPB Q8H [facility] PRN Reason: Protocol Last Admin: 05/18/18 11:47 Dose: 100 mls/hr Meropenem 1 gm/ Sodium (Chloride) 100 mls @ 100 mls/hr IVPB Q8H [facility] PRN Reason: Protocol Last Admin: 05/18/18 11:02 Dose: 100 mls/hr Aztreonam 2 gm/ Sodium (Chloride) 100 mls @ 100 mls/hr IVPB Q8H [facility] PRN Reason: Protocol Last Admin: 05/18/18 14:31 Dose: 100 mls/hr Multivitamins/Vitamin C 10 ml/Chromium/Copper/Manganese/Zinc 1 ml/ Amino Acids 1,011 mls @ 42 mls/hr IV .Q24H ONE Stop: 05/18/18 17:59 Last Admin: 05/17/18 17:25 Dose: 42 mls/hr Sodium Chloride 35 meq/Potassium Phosphate 30 mmole/Magnesium Sulfate 6 meq/ Calcium Chloride 330 mg/Chromium/Copper/Manganese/Zinc 1 ml/ Multivitamins/ Vitamin C 10 ml/ Heparin Sodium ( Porcine) 1,000 units/ Amino Acids 1,035.5278 mls @ 42 mls/hr IV .Q24H [facility] Stop: 05/19/18 17:59 Vancomycin/Sodium Chloride (Vancomycin 1 Gm/Ns 200 Ml) 1 gm in 200 mls @ 133.333 mls/hr IVPB Q12H [facility] PRN Reason: Protocol Stop: 05/23/18 17:01 Ipratropium [place] (Atrovent) 0.5 mg IH RQ6 [facility] Last Admin: 05/18/18 14:00 Dose: 0.5 mg Lorazepam (Ativan) 0.5 mg IVP Q12 PRN PRN Reason: Anxiety Last Admin: 05/18/18 10:29 Dose: 0.5 mg Morphine Sulfate (Morphine) 1 mg IVP Q4 PRN PRN Reason: Pain, severe (8-10) Last Admin: 05/18/18 15:51 Dose: 1 mg Nicotine (Nicoderm Cq) 1 patch TD DAILY [facility] Last Admin: 05/18/18 10:08 Dose: 1 patch Ondansetron HCl (Zofran Inj) 4 mg IVP Q4 PRN PRN Reason: Nausea/Vomiting Pantoprazole Sodium (Protonix Inj) 40 mg IVP Q12H [facility] Last Admin: 05/18/18 09:15 Dose: 40 mg - Labs Labs: 05/18/18 15:39 05/18/18 06:25 PT 14.3 SECONDS (9.7-12.2) H 05/18/18 06:25 INR 1.3 05/18/18 06:25 APTT 33 SECONDS (21-34) 05/16/18 18:56 Attending/Attestation - Attestation I have personally seen and examined this patient.: Yes I have fully participated in the care of the patient.: Yes I have reviewed all pertinent clinical information, including history, physical exam and plan: Yes Notes (Text): Pt was seen and examined at bedside Agree with above note and assessment Pt is clinically stable, Intubated and sedated Off Pressors Abdomen : Soft, distended Labs and radiology reviewed Plan : OR for Reexploration on wednesday with Possible Bowel resection Plan d.w mother and son at bedside IV antibiotics Consent NPO, IVF C/w ICU management Plan d.w ICU team in detail Risk and benefit explained in detail.
[2018-05-15] MEDS: metroNIDAZOLE IV 500 mg/100 ml 500 MG/100 ML BAG IVPB SCH ×2 (11:49→19:25)
[2018-05-15 11:52] LABS: BANDS 47 % (0-2); LYMPHOCYTE 14 % (20-40); METAMYELOCYTE 2 % (0-0); MONOCYTE 1 % (0-10); NEUTROPHIL 36 % (50-75); TOTAL CELLS COUNTED 100
[2018-05-15 11:54] LABS: ANISOCYTOSIS SLIGHT; HYPOCHROMIC SLIGHT; PLATELET ESTIMATE NORMAL (NORMAL)
[2018-05-15 11:55] LABS: POLYCHROMIC SLIGHT
[2018-05-15 11:56] LABS: OVALOCYTES SLIGHT; TEARDROP CELLS SLIGHT
[2018-05-15 12:34] LABS: ABG ALLEN TEST POS; ARTERIAL BLOOD GAS HCO3 20.6 mmol/L (21-28); ARTERIAL BLOOD GAS O2 SAT 96.3 % (95-98); ARTERIAL BLOOD GAS PCO2 30 mm/Hg (35-45); ARTERIAL BLOOD GAS PH 7.39 (7.35-7.45); ARTERIAL BLOOD GAS PO2 107 mm/Hg (80-100); ARTERIAL BLOOD GAS TCO2 19.1 mmol/L (22-28)
[2018-05-15] MEDS: Meropenem 1 GM in Sodium Chloride 0.9% 100 ML IVPB SCH ×2 (13:07→19:23)
--- NOTE | 2018-05-15 13:15 | CP.PCM.CON ---
History of Present Illness - History of Present Illness History of Present Illness: dictated Past Patient History - Infectious Disease Hx of Infectious Diseases: None - Past Medical History & Family History Past Medical History?: Yes - Past Social History Smoking Status: Light Smoker < 10 Cigarettes Daily - CARDIAC Hx Hypercholesterolemia: Yes Hx Hypertension: Yes - PULMONARY Hx Asthma: Yes Hx Sleep Apnea: Yes (mild) - NEUROLOGICAL Hx Neurological Disorder: No - HEENT Hx HEENT Problems: No - RENAL Hx Kidney Stones: Yes - ENDOCRINE/METABOLIC Hx Hypothyroidism: Yes - HEMATOLOGICAL/ONCOLOGICAL Hx Blood Disorders: No - INTEGUMENTARY Hx Dermatological Problems: No - MUSCULOSKELETAL/RHEUMATOLOGICAL Hx Arthritis: Yes Hx Fractures: Yes (right middle finger, right foot) - GASTROINTESTINAL Hx Gastritis: Yes - GENITOURINARY/GYNECOLOGICAL Hx Genitourinary Disorders: No - PSYCHIATRIC Hx Anxiety: Yes Hx Substance Use: No - SURGICAL HISTORY Hx Gastric Bypass Surgery: Yes (2013) - ANESTHESIA Hx Anesthesia: Yes Hx Anesthesia Reactions: No Hx Malignant Hyperthermia: No Meds Allergies/Adverse Reactions: Allergies Allergy/AdvReac Type Severity Reaction Status Date / Time moxifloxacin [From Avelox] Allergy Severe RASH Verified 05/13/18 23:21 - Medications Medications: Current Medications Artificial Tears (Lacri-Lube) 1 gm OU Q4H [facility] Last Admin: 05/15/18 12:23 Dose: 1 gm Dextrose (Dextrose 50% Inj) 0 ml IV STAT PRN; Protocol PRN Reason: Hypoglycemia Protocol Dextrose (Glutose 15) 0 gm PO ONCE PRN; Protocol PRN Reason: Hypoglycemia Protocol Glucagon (Glucagen Diagnostic Kit) 0 mg IM STAT PRN; Protocol PRN Reason: Hypoglycemia Protocol Pantoprazole Sodium 80 mg/ (Sodium Chloride) 100 mls @ 10 mls/hr IVPB .Q10H [facility] PRN Reason: 8 MG/HR Last Admin: 05/15/18 04:53 Dose: 10 mls/hr Cisatracurium Besylate 100 mg/ (Dextrose) 250 mls @ 36.74 mls/hr IV .Q6H49M [facility] ; 3 MCG/KG/MIN PRN Reason: Protocol Last Titration: 05/15/18 12:00 Dose: 1.5 mcg/kg/min, 18.37 mls/hr Fentanyl Citrate 2,500 mcg/ (Sodium Chloride) 250 mls @ 16.32 mls/hr IV .[id number] [facility]N; 2 MCG/KG/HR PRN Reason: Protocol Last Titration: 05/15/18 08:20 Dose: 4 mcg/kg/hr, 32.65 mls/hr Propofol (Diprivan) 1,000 mg in 100 mls @ 2.449 mls/hr IV .Q24H PRN; Protocol; 5 MCG/KG/MIN PRN Reason: TITRATE PER MD ORDER Last Admin: 05/15/18 08:24 Dose: 20 mcg/kg/min, 9.798 mls/hr Norepinephrine Bitartrate 4 mg (/ Sodium Chloride) 254 mls @ 15.24 mls/hr IV .[id number] PRN; Protocol; 4 MCG/MIN PRN Reason: TITRATE PER MD ORDER Last Titration: 05/15/18 11:00 Dose: 2 mcg/min, 7.62 mls/hr Sodium Chloride (Sodium Chloride 0.9%) 1,000 mls @ 150 mls/hr IV .Q6H40M [facility] Last Admin: 05/15/18 07:11 Dose: 150 mls/hr Dextrose (Dextrose 5% In Water 1000 Ml) 1,000 mls @ 0 mls/hr IV .Q0M PRN; Protocol; Per Protocol PRN Reason: Hypoglycemia Protocol Metronidazole (Flagyl) 500 mg in 100 mls @ 100 mls/hr IVPB Q8H [facility] PRN Reason: Protocol Last Admin: 05/15/18 11:49 Dose: 100 mls/hr Meropenem 1 gm/ Sodium (Chloride) 100 mls @ 100 mls/hr IVPB Q8H [facility] PRN Reason: Protocol Last Admin: 05/15/18 13:07 Dose: 100 mls/hr Ondansetron HCl (Zofran Inj) 4 mg IVP Q4 PRN PRN Reason: Nausea/Vomiting Results - Vital Signs Recent Vital Signs: Last Vital Signs Temp 99.8 F H 05/15/18 12:00 Pulse 133 H 05/15/18 12:20 Resp 20 05/15/18 12:20 BP 119/75 05/15/18 12:00 Pulse Ox 100 05/15/18 12:20 - Labs Result Diagrams: 05/15/18 09:54 05/15/18 09:54 Labs: Laboratory Results - last 24 hr 05/14/18 05/14/1818 12:56 12:56 19:34 WBC RBC Hgb Hct MCV MCH MCHC RDW Plt Count MPV Neut % (Auto) Lymph % (Auto) [place] % (Auto) Eos % (Auto) Baso % (Auto) Neut # (Auto) Lymph # (Auto) [place] # (Auto) Eos # (Auto) Baso # (Auto) Neutrophils % (Manual) Band Neutrophils % Lymphocytes % (Manual) Monocytes % (Manual) Metamyelocytes % Platelet Estimate Polychromasia Hypochromasia (manual) Anisocytosis (manual) Tear Drop Cells Ovalocytes PT INR APTT Puncture Site Rra pCO2 40 pO2 217 H HCO3 20.5 L ABG pH 7.31 L ABG Total CO2 21.3 L ABG O2 Saturation 98.7 H ABG Base Excess -5.8 L Jonathan Test Pos ABG Potassium 5.1 A-a O2 Difference 90.0 Respiratory Index 0.4 Sodium 133.0 Chloride 109.0 H Glucose 154 H Lactate 2.4 H Vent Mode Prvc Mechanical Rate 20 FiO2 50.0 Tidal Volume 500 PEEP 5 Crit Value Called To Crit Value Called By Crit Value Read Back Blood Gas Notified Time Potassium Carbon Dioxide Anion Gap BUN Creatinine Est GFR ( Amer) Est GFR (Non-Af Amer) Random Glucose Lactic Acid 3.6 H Calcium Phosphorus Magnesium Total Bilirubin AST ALT Alkaline Phosphatase Total Protein Albumin Globulin Albumin/Globulin Ratio Arterial Blood Potassium 5.1 Blood Type O POSITIVE Antibody Screen Negative 05/14/18 05/14/18 05/15/18 19:41 19:41 00:13 WBC 25.8 H RBC 3.96 Hgb 10.7 L Hct 33.0 L MCV 83.4 MCH 26.9 L MCHC 32.3 L RDW 18.9 H Plt Count 317 D MPV 6.6 L Neut % (Auto) 83.7 H Lymph % (Auto) 10.5 L [place] % (Auto) 5.6 Eos % (Auto) 0.0 Baso % (Auto) 0.2 Neut # (Auto) 21.6 H Lymph # (Auto) 2.7 [place] # (Auto) 1.4 H Eos # (Auto) 0.0 Baso # (Auto) 0.1 Neutrophils % (Manual) Band Neutrophils % Lymphocytes % (Manual) Monocytes % (Manual) Metamyelocytes % Platelet Estimate Polychromasia Hypochromasia (manual) Anisocytosis (manual) Tear Drop Cells Ovalocytes PT INR APTT Puncture Site pCO2 pO2 HCO3 ABG pH ABG Total CO2 ABG O2 Saturation ABG Base Excess Jonathan Test ABG Potassium A-a O2 Difference Respiratory Index Sodium 135 136 Chloride 106 109 H Glucose Lactate Vent Mode Mechanical Rate FiO2 Tidal Volume PEEP Crit Value Called To Crit Value Called By Crit Value Read Back Blood Gas Notified Time Potassium 5.3 H 5.3 H Carbon Dioxide 22 20 L Anion Gap 11 12 BUN 13 15 Creatinine 0.8 0.9 Est GFR ( Amer) > 60 > 60 Est GFR (Non-Af Amer) > 60 > 60 Random Glucose 141 H 134 H Lactic Acid Calcium 7.1 L 7.2 L Phosphorus 4.0 4.0 Magnesium 1.1 L 1.9 Total Bilirubin 0.6 0.6 AST 31 22 ALT 32 36 Alkaline Phosphatase 55 47 Total Protein 4.1 L 3.9 L Albumin 2.2 L D 2.1 L Globulin 1.9 L 1.8 L Albumin/Globulin Ratio 1.2 1.2 Arterial Blood Potassium Blood Type Antibody Screen 05/15/18 05/15/18 05/15/18 00:50 05:15 09:54 WBC 25.2 H 30.3 H RBC 3.34 L 3.00 L Hgb 9.0 L 8.1 L Hct 28.0 L 25.3 L MCV 83.8 84.3 MCH 26.8 L 27.0 MCHC 32.0 L 32.1 L RDW 18.9 H 18.2 H Plt Count 225 201 MPV 6.8 L 7.2 Neut % (Auto) 82.7 H 87.0 H Lymph % (Auto) 12.2 L 8.7 L [place] % (Auto) 4.9 4.1 Eos % (Auto) 0.1 0.1 Baso % (Auto) 0.1 0.1 Neut # (Auto) 20.8 H 26.4 H Lymph # (Auto) 3.1 2.7 [place] # (Auto) 1.2 H 1.3 H Eos # (Auto) 0.0 0.0 Baso # (Auto) 0.0 0.0 Neutrophils % (Manual) 36 L Band Neutrophils % 47 H* Lymphocytes % (Manual) 14 L Monocytes % (Manual) 1 Metamyelocytes % 2 H Platelet Estimate Normal Polychromasia Slight Hypochromasia (manual) Slight Anisocytosis (manual) Slight Tear Drop Cells Slight Ovalocytes Slight PT INR APTT Puncture Site R brac pCO2 38 pO2 132 H HCO3 19.8 L ABG pH 7.31 L ABG Total CO2 20.3 L ABG O2 Saturation 98.4 H ABG Base Excess -6.6 L Jonathan Test Na ABG Potassium 5.8 H A-a O2 Difference 177.0 Respiratory Index 1.3 Sodium 134.0 Chloride 111.0 H Glucose 125 H Lactate 2.3 H Vent Mode Prvc Mechanical Rate 20 FiO2 50.0 Tidal Volume 500 PEEP 5 Crit Value Called To Crit Value Called By Crit Value Read Back Blood Gas Notified Time Potassium Carbon Dioxide Anion Gap BUN Creatinine Est GFR ( Amer) Est GFR (Non-Af Amer) Random Glucose Lactic Acid Calcium Phosphorus Magnesium Total Bilirubin AST ALT Alkaline Phosphatase Total Protein Albumin Globulin Albumin/Globulin Ratio Arterial Blood Potassium 5.8 H Blood Type Antibody Screen 05/15/18 05/15/18 05/15/18 09:54 09:54 09:54 WBC RBC Hgb Hct MCV MCH MCHC RDW Plt Count MPV Neut % (Auto) Lymph % (Auto) [place] % (Auto) Eos % (Auto) Baso % (Auto) Neut # (Auto) Lymph # (Auto) [place] # (Auto) Eos # (Auto) Baso # (Auto) Neutrophils % (Manual) Band Neutrophils % Lymphocytes % (Manual) Monocytes % (Manual) Metamyelocytes % Platelet Estimate Polychromasia Hypochromasia (manual) Anisocytosis (manual) Tear Drop Cells Ovalocytes PT 19.7 H D INR 1.8 D APTT 32 D Puncture Site pCO2 pO2 HCO3 ABG pH ABG Total CO2 ABG O2 Saturation ABG Base Excess Jonathan Test ABG Potassium A-a O2 Difference Respiratory Index Sodium 136 Chloride 109 H Glucose Lactate Vent Mode Mechanical Rate FiO2 Tidal Volume PEEP Crit Value Called To Crit Value Called By Crit Value Read Back Blood Gas Notified Time Potassium 5.8 H Carbon Dioxide 21 L Anion Gap 11 BUN 21 H Creatinine 1.3 H Est GFR ( Amer) 56 Est GFR (Non-Af Amer) 46 Random Glucose 96 Lactic Acid 1.9 Calcium 6.8 L Phosphorus 4.8 H Magnesium 1.8 Total Bilirubin 0.7 AST 639 H D ALT 521 H D Alkaline Phosphatase 45 Total Protein 3.9 L Albumin 2.0 L Globulin 1.9 L Albumin/Globulin Ratio 1.1 Arterial Blood Potassium Blood Type Antibody Screen 05/15/18 12:18 WBC RBC Hgb Hct MCV MCH MCHC RDW Plt Count MPV Neut % (Auto) Lymph % (Auto) [place] % (Auto) Eos % (Auto) Baso % (Auto) Neut # (Auto) Lymph # (Auto) [place] # (Auto) Eos # (Auto) Baso # (Auto) Neutrophils % (Manual) Band Neutrophils % Lymphocytes % (Manual) Monocytes % (Manual) Metamyelocytes % Platelet Estimate Polychromasia Hypochromasia (manual) Anisocytosis (manual) Tear Drop Cells Ovalocytes PT INR APTT Puncture Site Rba pCO2 30 L pO2 107 H HCO3 20.6 L ABG pH 7.39 ABG Total CO2 19.1 L ABG O2 Saturation 96.3 ABG Base Excess -5.6 L Jonathan Test Pos ABG Potassium 6.7 H* A-a O2 Difference 212.0 Respiratory Index 2.0 Sodium 135.0 Chloride 114.0 H Glucose 91 Lactate 1.5 Vent Mode Prvc Mechanical Rate 20 FiO2 50.0 Tidal Volume 500 PEEP 5 Crit Value Called To Dr esqueda Crit Value Called By Aneudy luna commercial property manager Crit Value Read Back Y Blood Gas Notified Time 1234 Potassium Carbon Dioxide Anion Gap BUN Creatinine Est GFR ( Amer) Est GFR (Non-Af Amer) Random Glucose Lactic Acid Calcium Phosphorus Magnesium Total Bilirubin AST ALT Alkaline Phosphatase Total Protein Albumin Globulin Albumin/Globulin Ratio Arterial Blood Potassium 6.7 H* Blood Type Antibody Screen
[2018-05-15 14:20] LABS: BLOOD UREA NITROGEN 20 mg/dL (7-17); CALCIUM 6.7 mg/dl (8.6-10.4); GFR NON-AFRICAN AMERICAN 51
[2018-05-15] MEDS: Aztreonam 2 GM in Sodium Chloride 0.9% 100 ML IVPB SCH ×2 (16:17→21:32)
[2018-05-15 16:39] LABS: BASO % 0.2 % (0.0-2.0); EOS # 0.1 K/uL (0.0-0.7); EOS % 0.3 % (0.0-4.0); HEMOGLOBIN 7.7 g/dL (11.0-16.0); LYMPH # 1.2 K/uL (1.0-4.3); LYMPH % 6.3 % (20.0-40.0); MEAN CELL VOLUME 84.7 fL (81.0-99.0); MEAN CORPUSCULAR HEMOGLOBIN 27.1 pg (27.0-31.0); MEAN PLATELET VOLUME 7.1 fL (7.2-11.7); MONO # 0.5 K/uL (0.0-0.8); MONO % 2.6 % (0.0-10.0); NEUT # 17.8 K/uL (1.8-7.0); NEUT % 90.6 % (50.0-75.0); PLATELET COUNT 156 K/uL (130-400); RBC 2.85 Mil/uL (3.80-5.20); RED CELL DISTRIBUTION WIDTH 18.3 % (11.5-14.5); WHITE BLOOD COUNT 19.6 K/uL (4.8-10.8)
[2018-05-15 16:58] LABS: ALB/GLOB RATIO 1.3 (1.0-2.1); ALBUMIN 2.5 g/dL (3.5-5.0); ALT/SGPT 460 U/L (9-52); BLOOD UREA NITROGEN 19 mg/dL (7-17); GFR NON-AFRICAN AMERICAN > 60
[2018-05-15 17:10] LABS: AST/SGOT 914 U/L (14-36)
[2018-05-15 17:19] LABS: ANISOCYTOSIS SLIGHT; BANDS 44 % (0-2); EOSINOPHIL 1 % (0-4); LYMPHOCYTE 7 % (20-40); METAMYELOCYTE 3 % (0-0); MONOCYTE 1 % (0-10); MYELOCYTE 3 % (0-0); NEUTROPHIL 41 % (50-75); PLATELET ESTIMATE NORMAL (NORMAL); TOTAL CELLS COUNTED 100
[2018-05-15 17:20] LABS: HYPOCHROMIC SLIGHT; LARGE PLATELETS PRESENT; MICROCYTOSIS SLIGHT; OVALOCYTES SLIGHT; POIKILOCYTOSIS SLIGHT; POLYCHROMIC SLIGHT; TOXIC GRANULATION PRESENT
[2018-05-15 22:14] LABS: BASO % 0.1 % (0.0-2.0); EOS # 0.1 K/uL (0.0-0.7); EOS % 0.7 % (0.0-4.0); HEMOGLOBIN 9.1 g/dL (11.0-16.0); LYMPH # 0.7 K/uL (1.0-4.3); LYMPH % 4.2 % (20.0-40.0); MEAN CELL VOLUME 85.2 fL (81.0-99.0); MEAN CORPUSCULAR HEMOGLOBIN 28.1 pg (27.0-31.0); MEAN PLATELET VOLUME 6.7 fL (7.2-11.7); MONO # 0.4 K/uL (0.0-0.8); MONO % 2.6 % (0.0-10.0); NEUT % 92.4 % (50.0-75.0); PLATELET COUNT 141 K/uL (130-400); RBC 3.22 Mil/uL (3.80-5.20); RED CELL DISTRIBUTION WIDTH 17.6 % (11.5-14.5); WHITE BLOOD COUNT 16.3 K/uL (4.8-10.8)
[2018-05-15 22:30] LABS: ALB/GLOB RATIO 1.3 (1.0-2.1); ALBUMIN 2.5 g/dL (3.5-5.0); ALT/SGPT 367 U/L (9-52); AST/SGOT 560 U/L (14-36); BLOOD UREA NITROGEN 17 mg/dL (7-17); GFR NON-AFRICAN AMERICAN > 60
[2018-05-15 22:40] LABS: ANISOCYTOSIS SLIGHT; BANDS 36 % (0-2); EOSINOPHIL 1 % (0-4); HYPOCHROMIC SLIGHT; LYMPHOCYTE 5 % (20-40); METAMYELOCYTE 3 % (0-0); MONOCYTE 6 % (0-10); MYELOCYTE 2 % (0-0); NEUTROPHIL 47 % (50-75); OVALOCYTES SLIGHT; PLATELET ESTIMATE NORMAL (NORMAL); POIKILOCYTOSIS SLIGHT; POLYCHROMIC SLIGHT; TOTAL CELLS COUNTED 100
[2018-05-15 22:41] LABS: LARGE PLATELETS PRESENT; TOXIC GRANULATION PRESENT
[2018-05-16] MEDS: White Petrolatum/Mineral Oil Ophth Oint(3.5 gm) OU SCH ×7 (00:43→23:38)
[2018-05-16] MEDS: Pantoprazole 80 MG in Sodium Chloride 0.9% 100 ML IVPB SCH ×2 (02:58→05:56)
[2018-05-16] MEDS: metroNIDAZOLE IV 500 mg/100 ml 500 MG/100 ML BAG IVPB SCH ×3 (03:08→21:00)
[2018-05-16] MEDS: Meropenem 1 GM in Sodium Chloride 0.9% 100 ML IVPB SCH ×3 (03:13→18:44)
--- NOTE | 2018-05-16 03:29 | CON ---
Copied To: Guero Rivera MD Attending MD: Guero Rivera MD DATE: 05/15/2018 HISTORY OF PRESENT ILLNESS: The patient is a 37-year-old female who has past medical history of chronic abdominal pain, presented to the ER with abdominal pain and has had recurrent small bowel obstruction status post gastric bypass surgery in 2013, history is taken from the chart as she is intubated and hypotensive, on cooling blanket. Has history of asthma, hypertension, hyperlipidemia, diabetes type 2. She came with severe abdominal pain, it was localized to right lower quadrant radiating bilaterally around to her back and not associated with food. She had three episodes of non-bloody, non-bilious vomiting before. She stated when she came in that she was passing flatus and she came in with abdominal pain and has had frequent hospitalizations after the bypass surgery with these kinds of pain. The patient at present is postop, she had emergency surgery, abdominal surgery following and is intubated at this time. The postop note says Dr. Dailey wrote ischemic internal hernia status post Binta-en-Y gastric bypass. They found ischemia of the Binta limb, internal hernia, Naveed drain, stage II distal common limb and postop day had the same diagnosis, ischemia of the [place] limb. She had ischemic bowel and I am told that this week they have to go in again, so they left the fascia open and the skin sutures have been closed. The patient is on medications. She was hypotensive and I was asked for antibiotic management this morning and I have changed the antibiotics to Merrem as well as Flagyl. We gave a dose of gentamicin. We have also added Azactam as she does have 47% bandemia and remains on Levophed and is sedated. ALLERGIES: SHE IS ALLERGIC TO MOXIFLOXACIN. MEDICATIONS: Include artificial tears. We added Azactam and she is on dextrose. She is on fentanyl, meropenem 1 g every 8 hours, and Flagyl. She is on Levophed, Zofran as needed, pantoprazole, Diprivan IV. REVIEW OF SYSTEMS: Unable to obtain, but whatever I can look over; she is a life smoker, less than 10 cigarettes a day. History of anxiety is there. She had no infections. High cholesterol, hypertension. She has history of asthma, sleep apnea, kidney stones, hypothyroidism, arthritis, history of fracture right middle finger right foot, gastritis, anxiety. Substance abuse, no. Bypass surgery in 2014, has had anesthesia. Moxifloxacin causes severe rash. PHYSICAL EXAMINATION: VITAL SIGNS: I find her vitals, T-max is still 100.6, heart rate of 145, blood pressure 138/93, respirations are 22. GENERAL: She remains acutely ill and sedated, intubated. HEENT: Head is atraumatic, normocephalic. NECK: Supple. LUNGS: Clear to auscultation. HEART: S1, S2 is regular. ABDOMEN: Remains with a binder as well as JONAH drain is present which is sanguinous. Bowel sounds are absent. EXTREMITIES: Have no edema. LABORATORY DATA: Labs are noted. Labs show white count was 30.3 this morning, now it is 19.6; hemoglobin 7.7, hematocrit 24.2, platelet count is 156; bands were 47 before, now it is 44, still remains high. INR is 1.8. ABG showed potassium was 6.7 and intensivists are managing that. Chemistry was again repeated at 4 o'clock and shows potassium is 4.8 now. AST is 914, ALT is 460. Liver enzymes are increasing, most likely ischemia. Her blood pressure has come up though, and on fluids. She was making some urine when I saw. Labs are noted and clinically she was seen, now potassium is better. She did have urine benzodiazepines positive when she came and occult blood was positive when she was admitted. Her CAT scan which was done on 05/13/2018 revealed postop changes likely related to gastric bypass; however, prominent central mesenteric edema is appreciated with potential interval increase in internal swelling of the small bowel mesenteric pedicle in the interval, small bowel obstruction is not clearly evident; however, increased internal hernia pattern is not excluded, and further clinical correlation is recommended. Mesenteric adenitis is relatively prominent. Segmental enteritis affecting right lower quadrant small bowel is questioned. No free intraperitoneal gas or abscess appreciated. ASSESSMENT AND PLAN: So at this time, she did have some internal hernia which probably led to ischemia, she had surgery and she is postop with severe bandemia, hypotensive, and is now covered with multiple IV antibiotics. Prognosis is guarded. We will follow with the surgeon and septic workup was done. We will follow that. Guero Rivera MD [facility] # [id number]
[2018-05-16] MEDS: Propofol 10 mg/ml 1,000 MG/100 ML VIAL IV PRN ×3 (04:33→18:40)
[2018-05-16 05:40] LABS: ARTERIAL BLOOD GAS HCO3 20.8 mmol/L (21-28); ARTERIAL BLOOD GAS HEMOGLOBIN 9.5 g/dL (11.7-17.4); ARTERIAL BLOOD GAS O2 SAT 95.7 % (95-98); ARTERIAL BLOOD GAS PCO2 37 mm/Hg (35-45); ARTERIAL BLOOD GAS PH 7.34 (7.35-7.45); ARTERIAL BLOOD GAS PO2 172 mm/Hg (80-100); ARTERIAL BLOOD GAS TCO2 21.1 mmol/L (22-28)
[2018-05-16] MEDS: Aztreonam 2 GM in Sodium Chloride 0.9% 100 ML IVPB SCH ×3 (05:40→21:08)
[2018-05-16] MEDS: Sodium Chloride 0.9% 1,000 ML IV SCH ×3 (05:57→21:07)
[2018-05-16] MEDS: Cisatracurium Besylate 100 MG in Dextrose 5% In Water 240 ML IV SCH ×3 (05:59→18:45)
[2018-05-16 06:15] LABS: BASO % 0.1 % (0.0-2.0); EOS # 0.2 K/uL (0.0-0.7); EOS % 1.3 % (0.0-4.0); HEMOGLOBIN 9.2 g/dL (11.0-16.0); LYMPH # 0.9 K/uL (1.0-4.3); LYMPH % 5.5 % (20.0-40.0); MEAN CELL VOLUME 85.9 fL (81.0-99.0); MEAN CORPUSCULAR HEMOGLOBIN 28.1 pg (27.0-31.0); MEAN CORPUSCULAR HGB CONC 32.8 g/dL (33.0-37.0); MEAN PLATELET VOLUME 7.2 fL (7.2-11.7); MONO # 0.5 K/uL (0.0-0.8); MONO % 2.8 % (0.0-10.0); NEUT # 15.1 K/uL (1.8-7.0); NEUT % 90.3 % (50.0-75.0); NRBC % 0.1 % (0.0-2.0); PLATELET COUNT 151 K/uL (130-400); RBC 3.27 Mil/uL (3.80-5.20); RED CELL DISTRIBUTION WIDTH 17.9 % (11.5-14.5); WHITE BLOOD COUNT 16.7 K/uL (4.8-10.8)
[2018-05-16 06:20] LABS: INR 1.7; PROTHROMBIN TIME 18.2 SECONDS (9.7-12.2)
[2018-05-16 06:35] LABS: ALB/GLOB RATIO 1.2 (1.0-2.1); ALBUMIN 2.5 g/dL (3.5-5.0); ALT/SGPT 324 U/L (9-52); AST/SGOT 263 U/L (14-36); BLOOD UREA NITROGEN 18 mg/dL (7-17); CALCIUM 7.2 mg/dl (8.6-10.4); GFR NON-AFRICAN AMERICAN > 60
--- NOTE | 2018-05-16 08:01 | CP.CCUPN ---
CCU Subjective - Physician Review Subjective (Free Text): Jose Angel Cornelius DO PGY-1, ICU progress note for Dr. Araiza Pt was seen and examined at bedside. Pt was noted to be febrile last night, tmax 101, which was treated with hypothermia blanket. ROS was unobtainable due to pt being intubated and sedated. Levophed was discontinued at 1 pm 05/15/18. Pt is currently receiving Fentanyl 4.3 mcg/kg/min, Propofol 20 mcg/kg/min, Nimbex 1.5 mcg/kg/min, Protonix 8 mg/hr. Pt received 2 units of FFP and 2 units of pRBCs yesterday, with adequate response. Pt produced 2570 mL of urine over the past 24 hours. A 12-point ROS was unobtainable due to intubation and sedation. CCU Objective - Vital Signs / Intake & Output Vital Signs (Last 4 hours): Vital Signs Pulse Resp BP Pulse Ox 05/16/18 06:05 131 H 20 124/86 100 05/16/18 05:39 132 H 20 128/82 100 05/16/18 05:30 132 H 20 100 05/16/18 05:05 134 H 20 124/84 100 05/16/18 04:35 135 H 20 132/85 100 05/16/18 04:05 137 H 20 128/78 100 Intake and Output (Last 8hrs): Intake & Output 05/15/18 05/16/18 05/16/18 22:59 06:59 14:59 Intake Total 3661.0 2449.7 Output Total 940 810 Balance 2721.0 1639.7 Weight 87.09 kg Intake: IV 310 669 Intake, IV Amount 2691.0 1780.7 Left Antecubital 1050 300 Left Forearm 230 90 Left Wrist 50 Right Distal Port 663.5 203.1 Internal Jugular Right Forearm 240 720 Right Medial Port 208.2 295.2 Internal Jugular Right Proximal Port 102.7 172.4 Rt Medial Port 146.6 Blood Product 650 Red Blood Cells Cpd As1 325 Lr Unit [id number] Red Blood Cells Cpd As1 325 Lr Unit [id number] Other 10 Red Blood Cells Cpd As1 10 Lr Unit [id number] Output: Drainage 260 140 Abdomen 260 140 Urine 680 670 Urine, Voided 680 670 - Physical Exam Physical Exam Limitations: Positive for: Other ((+) intubated, sedated and paralyzed) Head: Positive for: Atraumatic, Normocephalic Pupils: Positive for: Non-Reactive (pt sedated) Extroacular Muscles: Negative for: EOMI (pt chemically paralyzed) Conjunctiva: Positive for: Normal Mouth: Positive for: Moist Mucous Membranes, Other ((+) ETT) Nose (External): Positive for: Other ((+) NGT with small amount of coffee ground material in cannister) Respiratory/Chest: Positive for: Clear to Auscultation. Negative for: Wheezes, Rales, Rhonchi Cardiovascular: Positive for: Normal S1, S2, Tachycardic Abdomen: Positive for: Other (unable to exam abdomen: (+) open surgical wound with abdominal binder in place, (+) drain with serosanguinous fluid) Upper Extremity: Positive for: Normal Inspection, NORMAL PULSES Lower Extremity: Positive for: Edema ((+) 1+ pitting edema) Neurological: Positive for: Other ((+) intubated, sedated and paralyzed). Negative for: GCS=15 (GCS= 6T; pt is on paralytic gent and intubated) Skin: Positive for: Warm, Dry Psychiatric: Positive for: Other (unable able to evaluated due to intubation, sedation, and paralysis) - Medications Active Medications: Active Medications Generic Name Dose Route Start Last Admin Trade Name Freq PRN Reason Stop Dose Admin Artificial Tears 1 gm 05/15/18 04:00 05/16/18 03:10 Lacri-Lube OU 1 gm Q4H KATELYN Administration Dextrose 0 ml 05/15/18 08:36 Dextrose 50% Inj IV STAT PRN Hypoglycemia Protocol Protocol Dextrose 0 gm 05/15/18 08:36 Glutose 15 PO ONCE PRN Hypoglycemia Protocol Protocol Glucagon 0 mg 05/15/18 08:36 Glucagen Diagnostic Kit IM STAT PRN Hypoglycemia Protocol Protocol Pantoprazole Sodium 80 mg/ 100 mls @ 10 mls/hr 05/14/18 12:15 05/16/18 05:56 Sodium Chloride IVPB Not Given .Q10H KATELYN 8 MG/HR Cisatracurium Besylate 100 mg/ 250 mls @ 36.74 mls/hr 05/14/18 17:45 05:59 Dextrose IV 1.5 mcg/kg/min .[id number] KATELYN 18.37 mls/hr Protocol Administration 3 MCG/KG/MIN Fentanyl Citrate 2,500 mcg/ 250 mls @ 16.32 mls/hr 05/14/18 17:45 05/16/18 00 :50 Sodium Chloride IV 4 mcg/kg/hr .[id number] KATELYN 32.65 mls/hr Protocol Administration 2 MCG/KG/HR Propofol 1,000 mg in 100 mls @ 2.449 mls/hr 05/14/18 17:40 05/16/18 06:00 Diprivan IV 30 mcg/kg/min .Q24H PRN 14.696 mls/hr TITRATE PER MD ORDER Titration Protocol 5 MCG/KG/MIN Norepinephrine Bitartrate 4 mg 254 mls @ 15.24 mls/hr 05/15/18 05:22 13:00 / Sodium Chloride IV 0 mcg/min .[id number] PRN 0 mls/hr TITRATE PER MD ORDER Titration Protocol 4 MCG/MIN Dextrose 1,000 mls @ 0 mls/hr 05/15/18 08:36 Dextrose 5% In Water 1000 Ml IV .Q0M PRN Hypoglycemia Protocol Protocol Per Protocol Metronidazole 500 mg in 100 mls @ 100 mls/hr 05/15/18 12:00 05/16/18 03:08 Flagyl IVPB 100 mls/hr Q8H KATELYN Administration Protocol Meropenem 1 gm/ Sodium 100 mls @ 100 mls/hr 05/15/18 11:00 05/16/18 03:13 Chloride IVPB 100 mls/hr Q8H KATELYN Administration Protocol Aztreonam 2 gm/ Sodium 100 mls @ 100 mls/hr 05/15/18 14:00 05/16/18 05:40 Chloride IVPB 100 mls/hr Q8H KATELYN Administration Protocol Sodium Chloride 1,000 mls @ 80 mls/hr 05/15/18 16:00 05/16/18 05:57 Sodium Chloride 0.9% IV 80 mls/hr .[id number] KATELYN Administration Ondansetron HCl 4 mg 05/14/18 02:57 Zofran Inj IVP Q4 PRN Nausea/Vomiting - Patient Studies Lab Studies: Microbiology Studies 05/14/18 16:56 Gram Stain - Preliminary Peritoneal Fluid Lab Studies 05/16/18 05/16/18 05/16/18 Range/Units 06:08 06:08 06:08 WBC 16.7 H (4.8-10.8) K/uL RBC 3.27 L (3.80-5.20) Mil/uL Hgb 9.2 L (11.0-16.0) g/dL Hct 28.1 L (34.0-47.0) % MCV 85.9 (81.0-99.0) fL MCH 28.1 (27.0-31.0) pg MCHC 32.8 L (33.0-37.0) g/dL RDW 17.9 H (11.5-14.5) % Plt Count 151 (130-400) K/uL MPV 7.2 (7.2-11.7) fL Neut % (Auto) 90.3 H (50.0-75.0) % Lymph % (Auto) 5.5 L (20.0-40.0) % Turner % (Auto) 2.8 (0.0-10.0) % Eos % (Auto) 1.3 (0.0-4.0) % Baso % (Auto) 0.1 (0.0-2.0) % Neut # (Auto) 15.1 H (1.8-7.0) K/uL Lymph # (Auto) 0.9 L (1.0-4.3) K/uL Turner # (Auto) 0.5 (0.0-0.8) K/uL Eos # (Auto) 0.2 (0.0-0.7) K/uL Baso # (Auto) 0.0 (0.0-0.2) K/uL Neutrophils % (Manual) (50-75) % Band Neutrophils % (0-2) % Lymphocytes % (Manual) (20-40) % Monocytes % (Manual) (0-10) % Eosinophils % (Manual) (0-4) % Metamyelocytes % (0-0) % Myelocytes % (0-0) % Toxic Granulation Platelet Estimate (NORMAL) Large Platelets Polychromasia Hypochromasia (manual) Poikilocytosis (manual Anisocytosis (manual) Microcytosis (manual) Macrocytosis (manual) Tear Drop Cells Ovalocytes PT 18.2 H (9.7-12.2) SECONDS INR 1.7 APTT 32 (21-34) SECONDS Puncture Site pCO2 (35-45) mm/Hg pO2 (80-100) mm/Hg HCO3 (21-28) mmol/L ABG pH (7.35-7.45) ABG Total CO2 (22-28) mmol/L ABG O2 Saturation (95-98) % ABG Base Excess (-2.0-3.0) mmol/L ABG Hemoglobin (11.7-17.4) g/dL ABG Carboxyhemoglobin (0.5-1.5) % POC ABG HHb (Measured) (0.0-5.0) % ABG Methemoglobin (0.0-3.0) % Jonathan Test ABG Potassium (3.6-5.2) mmol/L A-a O2 Difference mm/Hg Respiratory Index Hgb O2 Saturation (95.0-98.0) % Glucose (65-105) mg/dl Lactate (0.7-2.1) mmol/L Vent Mode Mechanical Rate FiO2 % Tidal Volume PEEP Crit Value Called To Crit Value Called By Crit Value Read Back Blood Gas Notified Time Sodium 139 (132-148) mmol/L Potassium 4.6 (3.6-5.2) mmol/L Chloride 110 H (98-107) mmol/L Carbon Dioxide 24 (22-30) mmol/L Anion Gap 10 (10-20) BUN 18 H (7-17) mg/dL Creatinine 0.7 (0.7-1.2) mg/dL Est GFR ( Amer) > 60 Est GFR (Non-Af Amer) > 60 Random Glucose 84 (65-105) mg/dL Lactic Acid (0.7-2.1) mmol/L Calcium 7.2 L (8.6-10.4) mg/dl Phosphorus 3.1 (2.5-4.5) mg/dL Magnesium 1.8 (1.6-2.3) mg/dL Total Bilirubin 1.5 H (0.2-1.3) mg/dL AST 263 H D (14-36) U/L ALT 324 H (9-52) U/L Alkaline Phosphatase 63 (38-126) U/L Total Protein 4.5 L (6.3-8.3) g/dL Albumin 2.5 L (3.5-5.0) g/dL Globulin 2.1 L (2.2-3.9) gm/dL Albumin/Globulin Ratio 1.2 (1.0-2.1) Arterial Blood Potassium (3.6-5.2) mmol/L Blood Type Antibody Screen 05/16/18 05/15/18 05/15/18 Range/Units 05:14 22:12 22:12 WBC 16.3 H (4.8-10.8) K/uL RBC 3.22 L (3.80-5.20) Mil/uL Hgb 9.1 L (11.0-16.0) g/dL Hct 27.4 L (34.0-47.0) % MCV 85.2 (81.0-99.0) fL MCH 28.1 (27.0-31.0) pg MCHC 33.0 (33.0-37.0) g/dL RDW 17.6 H (11.5-14.5) % Plt Count 141 (130-400) K/uL MPV 6.7 L (7.2-11.7) fL Neut % (Auto) 92.4 H (50.0-75.0) % Lymph % (Auto) 4.2 L (20.0-40.0) % Turner % (Auto) 2.6 (0.0-10.0) % Eos % (Auto) 0.7 (0.0-4.0) % Baso % (Auto) 0.1 (0.0-2.0) % Neut # (Auto) 15.0 H (1.8-7.0) K/uL Lymph # (Auto) 0.7 L (1.0-4.3) K/uL Turner # (Auto) 0.4 (0.0-0.8) K/uL Eos # (Auto) 0.1 (0.0-0.7) K/uL Baso # (Auto) 0.0 (0.0-0.2) K/uL Neutrophils % (Manual) 47 L (50-75) % Band Neutrophils % 36 H* (0-2) % Lymphocytes % (Manual) 5 L (20-40) % Monocytes % (Manual) 6 (0-10) % Eosinophils % (Manual) 1 (0-4) % Metamyelocytes % 3 H (0-0) % Myelocytes % 2 H (0-0) % Toxic Granulation Present Platelet Estimate Normal (NORMAL) Large Platelets Present Polychromasia Slight Hypochromasia (manual) Slight Poikilocytosis (manual Slight Anisocytosis (manual) Slight Microcytosis (manual) Macrocytosis (manual) Tear Drop Cells Ovalocytes Slight PT (9.7-12.2) SECONDS INR APTT (21-34) SECONDS Puncture Site R bra pCO2 37 (35-45) mm/Hg pO2 172 H (80-100) mm/Hg HCO3 20.8 L (21-28) mmol/L ABG pH 7.34 L (7.35-7.45) ABG Total CO2 21.1 L (22-28) mmol/L ABG O2 Saturation 95.7 (95-98) % ABG Base Excess -5.3 L (-2.0-3.0) mmol/L ABG Hemoglobin 9.5 L (11.7-17.4) g/dL ABG Carboxyhemoglobin 0 L (0.5-1.5) % POC ABG HHb (Measured) 4.3 (0.0-5.0) % ABG Methemoglobin 0.0 (0.0-3.0) % Jonathan Test Na ABG Potassium (3.6-5.2) mmol/L A-a O2 Difference 138.0 mm/Hg Respiratory Index 0.8 Hgb O2 Saturation 95.7 (95.0-98.0) % Glucose (65-105) mg/dl Lactate (0.7-2.1) mmol/L Vent Mode Prvc Mechanical Rate 20 FiO2 50.0 % Tidal Volume 500 PEEP 5 Crit Value Called To Crit Value Called By Crit Value Read Back Blood Gas Notified Time Sodium 139 (132-148) mmol/L Potassium 4.5 (3.6-5.2) mmol/L Chloride 110 H (98-107) mmol/L Carbon Dioxide 23 (22-30) mmol/L Anion Gap 10 (10-20) BUN 17 (7-17) mg/dL Creatinine 0.8 (0.7-1.2) mg/dL Est GFR ( Amer) > 60 Est GFR (Non-Af Amer) > 60 Random Glucose 93 (65-105) mg/dL Lactic Acid (0.7-2.1) mmol/L Calcium 7.0 L (8.6-10.4) mg/dl Phosphorus (2.5-4.5) mg/dL Magnesium (1.6-2.3) mg/dL Total Bilirubin 1.6 H (0.2-1.3) mg/dL AST 560 H D (14-36) U/L ALT 367 H D (9-52) U/L Alkaline Phosphatase 55 (38-126) U/L Total Protein 4.5 L (6.3-8.3) g/dL Albumin 2.5 L (3.5-5.0) g/dL Globulin 2.0 L (2.2-3.9) gm/dL Albumin/Globulin Ratio 1.3 (1.0-2.1) Arterial Blood Potassium (3.6-5.2) mmol/L Blood Type Antibody Screen 05/15/18 05/15/18 05/15/18 Range/Units 16:37 16:37 13:34 WBC 19.6 H (4.8-10.8) K/uL RBC 2.85 L (3.80-5.20) Mil/uL Hgb 7.7 L (11.0-16.0) g/dL Hct 24.2 L (34.0-47.0) % MCV 84.7 (81.0-99.0) fL MCH 27.1 (27.0-31.0) pg MCHC 32.0 L (33.0-37.0) g/dL RDW 18.3 H (11.5-14.5) % Plt Count 156 (130-400) K/uL MPV 7.1 L (7.2-11.7) fL Neut % (Auto) 90.6 H (50.0-75.0) % Lymph % (Auto) 6.3 L (20.0-40.0) % Turner % (Auto) 2.6 (0.0-10.0) % Eos % (Auto) 0.3 (0.0-4.0) % Baso % (Auto) 0.2 (0.0-2.0) % Neut # (Auto) 17.8 H (1.8-7.0) K/uL Lymph # (Auto) 1.2 (1.0-4.3) K/uL Turner # (Auto) 0.5 (0.0-0.8) K/uL Eos # (Auto) 0.1 (0.0-0.7) K/uL Baso # (Auto) 0.0 (0.0-0.2) K/uL Neutrophils % (Manual) 41 L (50-75) % Band Neutrophils % 44 H* (0-2) % Lymphocytes % (Manual) 7 L (20-40) % Monocytes % (Manual) 1 (0-10) % Eosinophils % (Manual) 1 (0-4) % Metamyelocytes % 3 H (0-0) % Myelocytes % 3 H (0-0) % Toxic Granulation Present Platelet Estimate Normal (NORMAL) Large Platelets Present Polychromasia Slight Hypochromasia (manual) Slight Poikilocytosis (manual Slight Anisocytosis (manual) Slight Microcytosis (manual) Slight Macrocytosis (manual) Slight Tear Drop Cells Ovalocytes Slight PT (9.7-12.2) SECONDS INR APTT (21-34) SECONDS Puncture Site pCO2 (35-45) mm/Hg pO2 (80-100) mm/Hg HCO3 (21-28) mmol/L ABG pH (7.35-7.45) ABG Total CO2 (22-28) mmol/L ABG O2 Saturation (95-98) % ABG Base Excess (-2.0-3.0) mmol/L ABG Hemoglobin (11.7-17.4) g/dL ABG Carboxyhemoglobin (0.5-1.5) % POC ABG HHb (Measured) (0.0-5.0) % ABG Methemoglobin (0.0-3.0) % Jonathan Test ABG Potassium (3.6-5.2) mmol/L A-a O2 Difference mm/Hg Respiratory Index Hgb O2 Saturation (95.0-98.0) % Glucose (65-105) mg/dl Lactate (0.7-2.1) mmol/L Vent Mode Mechanical Rate FiO2 % Tidal Volume PEEP Crit Value Called To Crit Value Called By Crit Value Read Back Blood Gas Notified Time Sodium 138 138 (132-148) mmol/L Potassium 4.8 5.1 (3.6-5.2) mmol/L Chloride 110 H 110 H (98-107) mmol/L Carbon Dioxide 21 L 20 L (22-30) mmol/L Anion Gap 12 13 (10-20) BUN 19 H 20 H (7-17) mg/dL Creatinine 1.0 1.2 (0.7-1.2) mg/dL Est GFR ( Amer) > 60 > 60 Est GFR (Non-Af Amer) > 60 51 Random Glucose 103 94 (65-105) mg/dL Lactic Acid (0.7-2.1) mmol/L Calcium 7.0 L 6.7 L (8.6-10.4) mg/dl Phosphorus (2.5-4.5) mg/dL Magnesium (1.6-2.3) mg/dL Total Bilirubin 1.1 (0.2-1.3) mg/dL AST 914 H D (14-36) U/L ALT 460 H (9-52) U/L Alkaline Phosphatase 48 (38-126) U/L Total Protein 4.3 L (6.3-8.3) g/dL Albumin 2.5 L D (3.5-5.0) g/dL Globulin 1.8 L (2.2-3.9) gm/dL Albumin/Globulin Ratio 1.3 (1.0-2.1) Arterial Blood Potassium (3.6-5.2) mmol/L Blood Type Antibody Screen 05/15/18 05/15/18 05/15/18 Range/Units 12:18 09:54 09:54 WBC (4.8-10.8) K/uL RBC (3.80-5.20) Mil/uL Hgb (11.0-16.0) g/dL Hct (34.0-47.0) % MCV (81.0-99.0) fL MCH (27.0-31.0) pg MCHC (33.0-37.0) g/dL RDW (11.5-14.5) % Plt Count (130-400) K/uL MPV (7.2-11.7) fL Neut % (Auto) (50.0-75.0) % Lymph % (Auto) (20.0-40.0) % Turner % (Auto) (0.0-10.0) % Eos % (Auto) (0.0-4.0) % Baso % (Auto) (0.0-2.0) % Neut # (Auto) (1.8-7.0) K/uL Lymph # (Auto) (1.0-4.3) K/uL Turner # (Auto) (0.0-0.8) K/uL Eos # (Auto) (0.0-0.7) K/uL Baso # (Auto) (0.0-0.2) K/uL Neutrophils % (Manual) (50-75) % Band Neutrophils % (0-2) % Lymphocytes % (Manual) (20-40) % Monocytes % (Manual) (0-10) % Eosinophils % (Manual) (0-4) % Metamyelocytes % (0-0) % Myelocytes % (0-0) % Toxic Granulation Platelet Estimate (NORMAL) Large Platelets Polychromasia Hypochromasia (manual) Poikilocytosis (manual Anisocytosis (manual) Microcytosis (manual) Macrocytosis (manual) Tear Drop Cells Ovalocytes PT 19.7 H D (9.7-12.2) SECONDS INR 1.8 D APTT 32 D (21-34) SECONDS Puncture Site Rba pCO2 30 L (35-45) mm/Hg pO2 107 H (80-100) mm/Hg HCO3 20.6 L (21-28) mmol/L ABG pH 7.39 (7.35-7.45) ABG Total CO2 19.1 L (22-28) mmol/L ABG O2 Saturation 96.3 (95-98) % ABG Base Excess -5.6 L (-2.0-3.0) mmol/L ABG Hemoglobin (11.7-17.4) g/dL ABG Carboxyhemoglobin (0.5-1.5) % POC ABG HHb (Measured) (0.0-5.0) % ABG Methemoglobin (0.0-3.0) % Jonathan Test Pos ABG Potassium 6.7 H* (3.6-5.2) mmol/L A-a O2 Difference 212.0 mm/Hg Respiratory Index 2.0 Hgb O2 Saturation (95.0-98.0) % Glucose 91 (65-105) mg/dl Lactate 1.5 (0.7-2.1) mmol/L Vent Mode Prvc Mechanical Rate 20 FiO2 50.0 % Tidal Volume 500 PEEP 5 Crit Value Called To Dr esqueda Crit Value Called By Aneudy luna [employer] faculty member Crit Value Read Back Y Blood Gas Notified Time 1234 Sodium 135.0 (132-148) mmol/L Potassium (3.6-5.2) mmol/L Chloride 114.0 H (98-107) mmol/L Carbon Dioxide (22-30) mmol/L Anion Gap (10-20) BUN (7-17) mg/dL Creatinine (0.7-1.2) mg/dL Est GFR ( Amer) Est GFR (Non-Af Amer) Random Glucose (65-105) mg/dL Lactic Acid 1.9 (0.7-2.1) mmol/L Calcium (8.6-10.4) mg/dl Phosphorus (2.5-4.5) mg/dL Magnesium (1.6-2.3) mg/dL Total Bilirubin (0.2-1.3) mg/dL AST (14-36) U/L ALT (9-52) U/L Alkaline Phosphatase (38-126) U/L Total Protein (6.3-8.3) g/dL Albumin (3.5-5.0) g/dL Globulin (2.2-3.9) gm/dL Albumin/Globulin Ratio (1.0-2.1) Arterial Blood Potassium 6.7 H* (3.6-5.2) mmol/L Blood Type Antibody Screen 05/15/18 05/15/18 05/14/18 Range/Units 09:54 09:54 12:56 WBC 30.3 H (4.8-10.8) K/uL RBC 3.00 L (3.80-5.20) Mil/uL Hgb 8.1 L (11.0-16.0) g/dL Hct 25.3 L (34.0-47.0) % MCV 84.3 (81.0-99.0) fL MCH 27.0 (27.0-31.0) pg MCHC 32.1 L (33.0-37.0) g/dL RDW 18.2 H (11.5-14.5) % Plt Count 201 (130-400) K/uL MPV 7.2 (7.2-11.7) fL Neut % (Auto) 87.0 H (50.0-75.0) % Lymph % (Auto) 8.7 L (20.0-40.0) % Turner % (Auto) 4.1 (0.0-10.0) % Eos % (Auto) 0.1 (0.0-4.0) % Baso % (Auto) 0.1 (0.0-2.0) % Neut # (Auto) 26.4 H (1.8-7.0) K/uL Lymph # (Auto) 2.7 (1.0-4.3) K/uL Turner # (Auto) 1.3 H (0.0-0.8) K/uL Eos # (Auto) 0.0 (0.0-0.7) K/uL Baso # (Auto) 0.0 (0.0-0.2) K/uL Neutrophils % (Manual) 36 L (50-75) % Band Neutrophils % 47 H* (0-2) % Lymphocytes % (Manual) 14 L (20-40) % Monocytes % (Manual) 1 (0-10) % Eosinophils % (Manual) (0-4) % Metamyelocytes % 2 H (0-0) % Myelocytes % (0-0) % Toxic Granulation Platelet Estimate Normal (NORMAL) Large Platelets Polychromasia Slight Hypochromasia (manual) Slight Poikilocytosis (manual Anisocytosis (manual) Slight Microcytosis (manual) Macrocytosis (manual) Tear Drop Cells Slight Ovalocytes Slight PT (9.7-12.2) SECONDS INR APTT (21-34) SECONDS Puncture Site pCO2 (35-45) mm/Hg pO2 (80-100) mm/Hg HCO3 (21-28) mmol/L ABG pH (7.35-7.45) ABG Total CO2 (22-28) mmol/L ABG O2 Saturation (95-98) % ABG Base Excess (-2.0-3.0) mmol/L ABG Hemoglobin (11.7-17.4) g/dL ABG Carboxyhemoglobin (0.5-1.5) % POC ABG HHb (Measured) (0.0-5.0) % ABG Methemoglobin (0.0-3.0) % Jonathan Test ABG Potassium (3.6-5.2) mmol/L A-a O2 Difference mm/Hg Respiratory Index Hgb O2 Saturation (95.0-98.0) % Glucose (65-105) mg/dl Lactate (0.7-2.1) mmol/L Vent Mode Mechanical Rate FiO2 % Tidal Volume PEEP Crit Value Called To Crit Value Called By Crit Value Read Back Blood Gas Notified Time Sodium 136 (132-148) mmol/L Potassium 5.8 H (3.6-5.2) mmol/L Chloride 109 H (98-107) mmol/L Carbon Dioxide 21 L (22-30) mmol/L Anion Gap 11 (10-20) BUN 21 H (7-17) mg/dL Creatinine 1.3 H (0.7-1.2) mg/dL Est GFR ( Amer) 56 Est GFR (Non-Af Amer) 46 Random Glucose 96 (65-105) mg/dL Lactic Acid (0.7-2.1) mmol/L Calcium 6.8 L (8.6-10.4) mg/dl Phosphorus 4.8 H (2.5-4.5) mg/dL Magnesium 1.8 (1.6-2.3) mg/dL Total Bilirubin 0.7 (0.2-1.3) mg/dL AST 639 H D (14-36) U/L ALT 521 H D (9-52) U/L Alkaline Phosphatase 45 (38-126) U/L Total Protein 3.9 L (6.3-8.3) g/dL Albumin 2.0 L (3.5-5.0) g/dL Globulin 1.9 L (2.2-3.9) gm/dL Albumin/Globulin Ratio 1.1 (1.0-2.1) Arterial Blood Potassium (3.6-5.2) mmol/L Blood Type O POSITIVE Antibody Screen Negative Laboratory Results - last 24 hr 05/14/18 05/15/18 05/15/18 12:56 09:54 09:54 WBC 30.3 H RBC 3.00 L Hgb 8.1 L Hct 25.3 L MCV 84.3 MCH 27.0 MCHC 32.1 L RDW 18.2 H Plt Count 201 MPV 7.2 Neut % (Auto) 87.0 H Lymph % (Auto) 8.7 L Turner % (Auto) 4.1 Eos % (Auto) 0.1 Baso % (Auto) 0.1 Neut # (Auto) 26.4 H Lymph # (Auto) 2.7 Turner # (Auto) 1.3 H Eos # (Auto) 0.0 Baso # (Auto) 0.0 Neutrophils % (Manual) 36 L Band Neutrophils % 47 H* Lymphocytes % (Manual) 14 L Monocytes % (Manual) 1 Eosinophils % (Manual) Metamyelocytes % 2 H Myelocytes % Toxic Granulation Platelet Estimate Normal Large Platelets Polychromasia Slight Hypochromasia (manual) Slight Poikilocytosis (manual Anisocytosis (manual) Slight Microcytosis (manual) Macrocytosis (manual) Tear Drop Cells Slight Ovalocytes Slight PT INR APTT Puncture Site pCO2 pO2 HCO3 ABG pH ABG Total CO2 ABG O2 Saturation ABG Base Excess ABG Hemoglobin ABG Carboxyhemoglobin POC ABG HHb (Measured) ABG Methemoglobin Jonathan Test ABG Potassium A-a O2 Difference Respiratory Index Hgb O2 Saturation Glucose Lactate Vent Mode Mechanical Rate FiO2 Tidal Volume PEEP Crit Value Called To Crit Value Called By Crit Value Read Back Blood Gas Notified Time Sodium 136 Potassium 5.8 H Chloride 109 H Carbon Dioxide 21 L Anion Gap 11 BUN 21 H Creatinine 1.3 H Est GFR ( Amer) 56 Est GFR (Non-Af Amer) 46 Random Glucose 96 Lactic Acid Calcium 6.8 L Phosphorus 4.8 H Magnesium 1.8 Total Bilirubin 0.7 AST 639 H D ALT 521 H D Alkaline Phosphatase 45 Total Protein 3.9 L Albumin 2.0 L Globulin 1.9 L Albumin/Globulin Ratio 1.1 Arterial Blood Potassium Blood Type O POSITIVE Antibody Screen Negative 05/15/18 05/15/18 05/15/18 09:54 09:54 12:18 WBC RBC Hgb Hct MCV MCH MCHC RDW Plt Count MPV Neut % (Auto) Lymph % (Auto) Turner % (Auto) Eos % (Auto) Baso % (Auto) Neut # (Auto) Lymph # (Auto) Turner # (Auto) Eos # (Auto) Baso # (Auto) Neutrophils % (Manual) Band Neutrophils % Lymphocytes % (Manual) Monocytes % (Manual) Eosinophils % (Manual) Metamyelocytes % Myelocytes % Toxic Granulation Platelet Estimate Large Platelets Polychromasia Hypochromasia (manual) Poikilocytosis (manual Anisocytosis (manual) Microcytosis (manual) Macrocytosis (manual) Tear Drop Cells Ovalocytes PT 19.7 H D INR 1.8 D APTT 32 D Puncture Site Rba pCO2 30 L pO2 107 H HCO3 20.6 L ABG pH 7.39 ABG Total CO2 19.1 L ABG O2 Saturation 96.3 ABG Base Excess -5.6 L ABG Hemoglobin ABG Carboxyhemoglobin POC ABG HHb (Measured) ABG Methemoglobin Jonathan Test Pos ABG Potassium 6.7 H* A-a O2 Difference 212.0 Respiratory Index 2.0 Hgb O2 Saturation Glucose 91 Lactate 1.5 Vent Mode Prvc Mechanical Rate 20 FiO2 50.0 Tidal Volume 500 PEEP 5 Crit Value Called To Dr esqueda Crit Value Called By Aneudy [employer]una [employer] faculty member Crit Value Read Back Y Blood Gas Notified Time 1234 Sodium 135.0 Potassium Chloride 114.0 H Carbon Dioxide Anion Gap BUN Creatinine Est GFR ( Amer) Est GFR (Non-Af Amer) Random Glucose Lactic Acid 1.9 Calcium Phosphorus Magnesium Total Bilirubin AST ALT Alkaline Phosphatase Total Protein Albumin Globulin Albumin/Globulin Ratio Arterial Blood Potassium 6.7 H* Blood Type Antibody Screen 05/15/18 05/15/18 05/15/18 13:34 16:37 16:37 WBC 19.6 H RBC 2.85 L Hgb 7.7 L Hct 24.2 L MCV 84.7 MCH 27.1 MCHC 32.0 L RDW 18.3 H Plt Count 156 MPV 7.1 L Neut % (Auto) 90.6 H Lymph % (Auto) 6.3 L Turner % (Auto) 2.6 Eos % (Auto) 0.3 Baso % (Auto) 0.2 Neut # (Auto) 17.8 H Lymph # (Auto) 1.2 Turner # (Auto) 0.5 Eos # (Auto) 0.1 Baso # (Auto) 0.0 Neutrophils % (Manual) 41 L Band Neutrophils % 44 H* Lymphocytes % (Manual) 7 L Monocytes % (Manual) 1 Eosinophils % (Manual) 1 Metamyelocytes % 3 H Myelocytes % 3 H Toxic Granulation Present Platelet Estimate Normal Large Platelets Present Polychromasia Slight Hypochromasia (manual) Slight Poikilocytosis (manual Slight Anisocytosis (manual) Slight Microcytosis (manual) Slight Macrocytosis (manual) Slight Tear Drop Cells Ovalocytes Slight PT INR APTT Puncture Site pCO2 pO2 HCO3 ABG pH ABG Total CO2 ABG O2 Saturation ABG Base Excess ABG Hemoglobin ABG Carboxyhemoglobin POC ABG HHb (Measured) ABG Methemoglobin Jonathan Test ABG Potassium A-a O2 Difference Respiratory Index Hgb O2 Saturation Glucose Lactate Vent Mode Mechanical Rate FiO2 Tidal Volume PEEP Crit Value Called To Crit Value Called By Crit Value Read Back Blood Gas Notified Time Sodium 138 138 Potassium 5.1 4.8 Chloride 110 H 110 H Carbon Dioxide 20 L 21 L Anion Gap 13 12 BUN 20 H 19 H Creatinine 1.2 1.0 Est GFR ( Amer) > 60 > 60 Est GFR (Non-Af Amer) 51 > 60 Random Glucose 94 103 Lactic Acid Calcium 6.7 L 7.0 L Phosphorus Magnesium Total Bilirubin 1.1 AST 914 H D ALT 460 H Alkaline Phosphatase 48 Total Protein 4.3 L Albumin 2.5 L D Globulin 1.8 L Albumin/Globulin Ratio 1.3 Arterial Blood Potassium Blood Type Antibody Screen 05/15/18 05/15/18 05/16/18 22:12 22:12 05:14 WBC 16.3 H RBC 3.22 L Hgb 9.1 L Hct 27.4 L MCV 85.2 MCH 28.1 MCHC 33.0 RDW 17.6 H Plt Count 141 MPV 6.7 L Neut % (Auto) 92.4 H Lymph % (Auto) 4.2 L Turner % (Auto) 2.6 Eos % (Auto) 0.7 Baso % (Auto) 0.1 Neut # (Auto) 15.0 H Lymph # (Auto) 0.7 L Turner # (Auto) 0.4 Eos # (Auto) 0.1 Baso # (Auto) 0.0 Neutrophils % (Manual) 47 L Band Neutrophils % 36 H* Lymphocytes % (Manual) 5 L Monocytes % (Manual) 6 Eosinophils % (Manual) 1 Metamyelocytes % 3 H Myelocytes % 2 H Toxic Granulation Present Platelet Estimate Normal Large Platelets Present Polychromasia Slight Hypochromasia (manual) Slight Poikilocytosis (manual Slight Anisocytosis (manual) Slight Microcytosis (manual) Macrocytosis (manual) Tear Drop Cells Ovalocytes Slight PT INR APTT Puncture Site R bra pCO2 37 pO2 172 H HCO3 20.8 L ABG pH 7.34 L ABG Total CO2 21.1 L ABG O2 Saturation 95.7 ABG Base Excess -5.3 L ABG Hemoglobin 9.5 L ABG Carboxyhemoglobin 0 L POC ABG HHb (Measured) 4.3 ABG Methemoglobin 0.0 Jonathan Test Na ABG Potassium A-a O2 Difference 138.0 Respiratory Index 0.8 Hgb O2 Saturation 95.7 Glucose Lactate Vent Mode Prvc Mechanical Rate 20 FiO2 50.0 Tidal Volume 500 PEEP 5 Crit Value Called To Crit Value Called By Crit Value Read Back Blood Gas Notified Time Sodium 139 Potassium 4.5 Chloride 110 H Carbon Dioxide 23 Anion Gap 10 BUN 17 Creatinine 0.8 Est GFR ( Amer) > 60 Est GFR (Non-Af Amer) > 60 Random Glucose 93 Lactic Acid Calcium 7.0 L Phosphorus Magnesium Total Bilirubin 1.6 H AST 560 H D ALT 367 H D Alkaline Phosphatase 55 Total Protein 4.5 L Albumin 2.5 L Globulin 2.0 L Albumin/Globulin Ratio 1.3 Arterial Blood Potassium Blood Type Antibody Screen 05/16/18 05/16/18 05/16/18 06:08 06:08 06:08 WBC 16.7 H RBC 3.27 L Hgb 9.2 L Hct 28.1 L MCV 85.9 MCH 28.1 MCHC 32.8 L RDW 17.9 H Plt Count 151 MPV 7.2 Neut % (Auto) 90.3 H Lymph % (Auto) 5.5 L Turner % (Auto) 2.8 Eos % (Auto) 1.3 Baso % (Auto) 0.1 Neut # (Auto) 15.1 H Lymph # (Auto) 0.9 L Turner # (Auto) 0.5 Eos # (Auto) 0.2 Baso # (Auto) 0.0 Neutrophils % (Manual) Band Neutrophils % Lymphocytes % (Manual) Monocytes % (Manual) Eosinophils % (Manual) Metamyelocytes % Myelocytes % Toxic Granulation Platelet Estimate Large Platelets Polychromasia Hypochromasia (manual) Poikilocytosis (manual Anisocytosis (manual) Microcytosis (manual) Macrocytosis (manual) Tear Drop Cells Ovalocytes PT 18.2 H INR 1.7 APTT 32 Puncture Site pCO2 pO2 HCO3 ABG pH ABG Total CO2 ABG O2 Saturation ABG Base Excess ABG Hemoglobin ABG Carboxyhemoglobin POC ABG HHb (Measured) ABG Methemoglobin Jonathan Test ABG Potassium A-a O2 Difference Respiratory Index Hgb O2 Saturation Glucose Lactate Vent Mode Mechanical Rate FiO2 Tidal Volume PEEP Crit Value Called To Crit Value Called By Crit Value Read Back Blood Gas Notified Time Sodium 139 Potassium 4.6 Chloride 110 H Carbon Dioxide 24 Anion Gap 10 BUN 18 H Creatinine 0.7 Est GFR ( Amer) > 60 Est GFR (Non-Af Amer) > 60 Random Glucose 84 Lactic Acid Calcium 7.2 L Phosphorus 3.1 Magnesium 1.8 Total Bilirubin 1.5 H AST 263 H D ALT 324 H Alkaline Phosphatase 63 Total Protein 4.5 L Albumin 2.5 L Globulin 2.1 L Albumin/Globulin Ratio 1.2 Arterial Blood Potassium Blood Type Antibody Screen EKG/Cardiology Studies: Cardiology / EKG Studies 05/15/18 11:22 EKG [ELECTROCARDIOGRAM] Stat Comment: Mode Of Transportation: Reason For Exam: hyperkalemia Fingerstick Blood Sugar Results: 97 Review of Systems - Review of Systems Systems not reviewed;Unavailable: Intubated All systems: reviewed and no additional remarkable complaints except (see HPI) Critical Care Progress Note - Ventilator Checklist Head of Bed 30 Degrees: No (open surgical abdominal wound) Daily Sedation Vacation: Yes Daily Assessment of Readiness to Wean: Yes Daily Spontaneous Breathing Trial: Yes PUD Prophalyxis: Yes DVT Prophylaxis: Yes Oral Care with Chlorhexidine Gluconate {CHG}: Yes - Vent Settings MODE:: PRVC TIDAL VOLUME:: 500 RESP RATE:: 20 FIO2:: 50 PEEP:: 5 - Extremities/Vascular Does the Patient have a Central Venous Catheter?: Yes Insertion Site: Internal Jugular Vein (right tlc) Does the Patient have a Srivastava Catheter?: Yes - Prophylaxis GI Prophylaxis GI: PPI (gtt) - Prophylaxis DVT Prophylaxis DVT: SCDs - Nutrition Nutrition: Nutrition Category Date Time Status NPO Diet [DIET] Diets 05/14/18 Breakfast Active Assessment/Plan - Assessment and Plan (Free Text) Assessment: This is a 37 year old female with PMH of recurrent SBOs s/p gastric bypass (2013 ), HTN, HLD, DM2, obesity, gastritis, asthma who was BIBA to ED on 05/14/18 with complaints of 1 day history of severe abdominal pain associated with 3 episodes of NBNB emesis. Abd/pelv CT was positive for SBO, with small amount of free fluid in the pelvis, enteritis, mesenteric edema and internal hernia. Pt noted to have BRB RI, with hypotension, and placed on levophed gtt and was taken to the OR for emergency ex lap for possible bowel ischemia. In the OR, internal hernia was reduced, lysis of adhesions, and pt was noted to have mesenteric ischemia of yenni limb. One JONAH drain was placed into pelvis, and pt was brought to ICU with open surgical abdominal wound, intubation, checmical paralysis, and sedation. Pt has plans to return to OR on 05/16/18. On 05/15 POD#1, pt anemic (hgb 7.7) and received 2 units of FFP and 2 units of pRBCs with adequate response. Levophed was discontinuated on 05/15 at 1pm. Pt is currently intubated, sedated with fentanyl/propofol and paralyzed with nimbex. Plan: Neuro: - continue to monitor for mental status changes - pt is AAOx3 at baseline - GCS 6T; opens eyes spontaneously, no verbal response but does nod her head that she can hear me, no motor response but pt is on paralytic agent - continue sedation with fentanyl and propofol - decrease fentanyl rate as high doses may lead to further obstruction/ischemia - concomitant increase in propofol rate - continue nimbex Cardio: - pt is off levophed with SBPs in the 120s, DBPs in the 80s; tachycardic - maintain MAP > 65 mmHg Pulm: - PRVC: 500/20rr/5/50%, spo2 100% - maintain spo2 >95% - ABG wnl - CXR (05/16) shows no acute cardiopulmonary disease. GI: - Pt is POD #2 - Abd/Pelv CT (05/13 prior to surgery) : There are air fluid levels identified in the small bowel in the pelvis concerning for developing. obstructive pattern. A small volume of free fluid in the pelvis. There is some wall thickening of loops in. the right lower quadrant which appears to be small bowel, correlate for enteritis. There may be an obstructing adhesion in this patient who has undergone previous gastric bypass and probable appendectomy. Swirling appearance of the vessels in the right abdomen is stable. There does appear to be some mesenteric edema. Correlate for an internal hernia. - open abdominal surgical wound wth abdominal binder as per surgery; plan to return to OR this afternoon - JONAH drain with minimal amount of serosanguinous fluid - NPO - NGT on low int suction as per surgery - AST/ALT/ALP are downtrending (263/324/63) - protonix gtt discontinued - protonic 40 mg IVP q12h for pud ppx Heme: - H/h stable s/p transfusion of 2 units FFP and 2 units pRBCs on 05/15 - PT is downtrending, but remains slightly elevated - Pt will receive 2 units of FFP as per surgery prior to returning to OR today - pt will likely need heparin for vte ppx 24 hours after today's surgery; not needed at this time ID: - pt currently afebrile - leukocytosis (16) stable with increasing bandemia (54) - continue Aztreonam, Merrem, Metronidazole as per ID - intraoperative periotoneal fluid gram stain prelim is negative - f/u peritoneal fluid culture - f/u bood cultures - f/u urine culture Renal: - strict Is and Os - pt is producing about 1.2 mL/kg/hour of urine in the past 24 hours - maintain minimum of 0.5 mL/kg/hr - BUN/Cr is stable and wnl - maintain euvolemia - continue NS IVF at 80 mL/hr - replete electrolytes as needed Endo: - maintain euglycemia; blood sugar has been WNL - Hgb A1c is 5.8 - accucheck q6h Ppx: protonix for pud; SCDs for vte ppx Dispo: Prognosis guarded; pt will return to OR today Case was reviewed and discussed with attending physician, Dr. Araiza
[2018-05-16 08:48] LABS: ANISOCYTOSIS SLIGHT; BANDS 54 % (0-2); EOSINOPHIL 1 % (0-4); HYPOCHROMIC SLIGHT; LYMPHOCYTE 6 % (20-40); MONOCYTE 2 % (0-10); NEUTROPHIL 37 % (50-75); PLATELET ESTIMATE NORMAL (NORMAL); POIKILOCYTOSIS SLIGHT; TOTAL CELLS COUNTED 100
--- NOTE | 2018-05-16 09:11 | CP.PCM.PN ---
Subjective - Date & Time of Evaluation Date of Evaluation: 05/16/18 Time of Evaluation: 09:00 - Subjective Subjective: Hospitalist Progress Note Patient was seen and examined at 9:00 AM 37 year old female with history of Yenni En Y Gastric Bypass Surgery in the past who presented with complaints of abdominal pain and rectal bleeding. She is S/P Exploratory Lapartomy 05/14/18 and was noted intraoperatively:gangrene of small bowel, internal hernia that was reduced, and evidence that segment of alimentary canal from prior gastric bypass surgery was not closed. She is pending surgery again later today 05/16/18 . Please see Assessment and Plans below for further details. ROS is not possible secondary to patient being intubated and on vent. General: intubated/on vent and nonresponsive HEENT: Pupils are pinpoint and sluggishly reactive to light, NCA, Nasal Turbinates and oral mucosa are dry, NO lympadenopathy Cardio: NS1 and NS2, NO M/R/G Respiratory: Few scattered course breath sounds with expiration diffusely GI: Abdomen is soft with abdominal binder and large ventral surgical site covered with clean dry bandages, Decreased breath sounds Ext: Pulses are strong and equal Bilateral UE and LE, NO edema, Capillary Refill is 2 second (1) Ischemic bowel disease Assessment & Plan: * Dr. Harley (surgery) on the case-->help appreciated * Dr. Samara Denise (Surgery) on the case-->help appreciated * Preoperative/intraoperative/postoperative management per surgery * Dr. Alvarado (GI) on the case-->help appreciated * Dr. Rivera (ID) on the case-->help appreciated * Chest xray (05/14/18): no infiltrate, pleural effusion, or pneumothorax b/l. Diminished inspiratory volume question. No acute cardiovascular disease. * Lactic: 3.6 (prior OR)-->2.4 (post OR)-->2.3 * Patient has had 2 bloody bowel movements started 05/14/18. Patient's rectal: blood. She had reported abdominal pain has worsening since night of admission. Patient required emergent surgical intervention on 05/14/18 and transferred to ICU. Patient will need a second surgery and this is planned for later on 05/16/18 * Per operative note (05/14/18): Diagnostic laparoscopy, Exploratory laparotomy, Reduction of internal hernia, Lysis of adhesions, Drainage of abdominal collections, temporary abdominal closure, EGD * Ischemia of yenni limb, internal hernia. Crowheart drain stitched to distal common limb * ICU evaluation noted: Patient underwent emergency laparotomy for possible ischemic bowel. Patient had GI bleed. In the operating room patient underwent extensive exploratory laparotomy. Significant gangrene of the small bowel noted. Hernia was identified, which was reduced.After that the significant improvement in the vasculature noted. But there is still a segment of bowel not healthy (portion of the alimentary canal from prior gastric bypass surgery--> clarified with surgery resident), As per the surgeon the wound was not closed. Abdominal wall wound open at this time. Patient is intubated. Currently on paralytics. Also on sedation and pain management. Status: Acute (2) Small bowel obstruction Assessment & Plan: * Secondary to hernia * CT abdomen/Pelvis (05/13/18): Writhing appearance of mesentric vessels. Mesentric edema. No evidence of bowel obstruction. Whirling appearance of mesentric vessels is nonspecific. Prominent mesentric lymph nodes. Mesentric edema. (preop) * Patient has had 2 bloody bowel movements started 05/14/18. Patient's rectal: blood. She had reported abdominal pain has worsening since night of admission. Patient required emergent surgical intervention on 05/14/18 and transferred to ICU. Patient will need a second surgery likely tomorrow on 05/16/18. * Per operative note (05/14/18): Diagnostic laparoscopy, Exploratory laparotomy, Reduction of internal hernia, Lysis of adhesions, Drainage of abdominal collections, temporary abdominal closure, EGD * Ischemia of yenni limb, internal hernia. Naveed drain stitched to distal common limb * ICU evaluation noted: Patient underwent emergency laparotomy for possible ischemic bowel. Patient had GI bleed. In the operating room patient underwent extensive exploratory laparotomy. Significant gangrene of the small bowel noted. Hernia was identified, which was reduced.After that the significant improvement in the vasculature noted. But there is still a segment of bowel not healthy (portion of the alimentary canal from prior gastric bypass surgery--> clarified with surgery resident), As per the surgeon the wound was not closed. Abdominal wall wound open at this time. Patient is intubated. Currently on paralytics. Also on sedation.And pain management. * Patient to have second surgery procedure tomorrow 05/16/18 with bariatric surgeon, Dr Jimenez give the nature of the bowel involved per discussion with surgery resident. Status: Acute (3) Obesity (BMI 30-39.9) Assessment & Plan: * s/p gastric bypass surgery in 2013 * Operative note (2013): Yenni-en-Y gastric bypass surgery Status: Acute (4) Status post gastric bypass for obesity Assessment & Plan: * status post gastric bypass 2013 * Operative note (2013): Yenni-en-Y gastric bypass surgery Status: Acute (5) History of Asthma Assessment & Plan: * Patient not in acute exacerbation prior to OR * Patient is intubated on vent at this time post operative day 1 (6) Leukocytosis Assessment & Plan: * Likely secondary to ischemic bowel secondary to small bowel obstruction () * IV antibiotics: Aztreonam 2 gm IV Q8H, Flagyl 500 mg IV Q8H, Meropenem 1 gm IV Q8H * F/U intraoperative peritoneal fluid culture from surgery #1 on 05/14/18 * Chest X Ray 05/16/18 with no active disease * F/U Blood and Urine Cultures (7) Diabetes Mellitus (Type 2) Assessment & Plan: * From prior note: * Admittedly non-compliant - has not taken Januvia for one year * Accuchecks Q6H * Hypoglycemic protocol * HbA1c - 6.3 (03/10/17) * Repeat Hgba1c for 05/17/18 * History of gastric bypass surgery (8) Hx of HTN (hypertension) Assessment & Plan: * Since Gastric Bypass has not taken meds (9) Hx of Hypothyroid Assessment & Plan: * From prior note: * Pt admitted non-compliance (10) Hypercholesterolemia Assessment & Plan: * From prior note: * Pt not taking meds * LDL 138, HDL 67, Tchol 220, Trig 112 * History of gastric bypass surgery (11) Anxiety Assessment & Plan: * Patient was taking Xanax for anxiety noted in prior note (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 Assessment & Plan: * 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 and from my prior note from last hospitalization (13) Smoker Assessment & Plan: * From my prior note: 1ppd x 20 yrs, 1/2 ppd x 3 yrs (14) Prophylactic measure Assessment & Plan: * Chemical anticoagulation held secondary to rectal bleeding/preoperative * RIJ TLC 05/14/18 * NGT Tube * Srivastava * On pressor * On Paralytic * On Fentanyl * On Protonix Drip Status: Acute Franki Denise D.O. Objective - Vital Signs/Intake and Output Vital Signs (last 24 hours): Temp Pulse Resp BP Pulse Ox 97 F L 132 H 20 132/77 100 05/16/18 08:00 05/16/18 08:00 05/16/18 08:00 05/16/18 07:51 05/16/18 08:00 Intake and Output: 05/16/18 05/16/18 06:59 18:59 Intake Total 3938.4 408.4 Output Total 1270 80 Balance 2668.4 328.4 - Medications Medications: Current Medications Artificial Tears (Lacri-Lube) 1 gm OU Q4H KATELYN Last Admin: 05/16/18 08:08 Dose: 1 gm Dextrose (Dextrose 50% Inj) 0 ml IV STAT PRN; Protocol PRN Reason: Hypoglycemia Protocol Dextrose (Glutose 15) 0 gm PO ONCE PRN; Protocol PRN Reason: Hypoglycemia Protocol Glucagon (Glucagen Diagnostic Kit) 0 mg IM STAT PRN; Protocol PRN Reason: Hypoglycemia Protocol Pantoprazole Sodium 80 mg/ (Sodium Chloride) 100 mls @ 10 mls/hr IVPB .Q10H KATELYN PRN Reason: 8 MG/HR Last Admin: 05/16/18 05:56 Dose: Not Given Cisatracurium Besylate 100 mg/ (Dextrose) 250 mls @ 36.74 mls/hr IV .Q6H49M KATELYN ; 3 MCG/KG/MIN PRN Reason: Protocol Last Admin: 05/16/18 05:59 Dose: 1.5 mcg/kg/min, 18.37 mls/hr Fentanyl Citrate 2,500 mcg/ (Sodium Chloride) 250 mls @ 16.32 mls/hr IV .[id number] KATELYN; 2 MCG/KG/HR PRN Reason: Protocol Last Titration: 05/16/18 08:00 Dose: 4.29 mcg/kg/hr, 35.1 mls/hr Propofol (Diprivan) 1,000 mg in 100 mls @ 2.449 mls/hr IV .Q24H PRN; Protocol; 5 MCG/KG/MIN PRN Reason: TITRATE PER MD ORDER Last Titration: 05/16/18 08:00 Dose: 20 mcg/kg/min, 9.8 mls/hr Norepinephrine Bitartrate 4 mg (/ Sodium Chloride) 254 mls @ 15.24 mls/hr IV .[id number] PRN; Protocol; 4 MCG/MIN PRN Reason: TITRATE PER MD ORDER Last Titration: 05/15/18 13:00 Dose: 0 mcg/min, 0 mls/hr Dextrose (Dextrose 5% In Water 1000 Ml) 1,000 mls @ 0 mls/hr IV .Q0M PRN; Protocol; Per Protocol PRN Reason: Hypoglycemia Protocol Metronidazole (Flagyl) 500 mg in 100 mls @ 100 mls/hr IVPB Q8H KATELYN PRN Reason: Protocol Last Admin: 05/16/18 03:08 Dose: 100 mls/hr Meropenem 1 gm/ Sodium (Chloride) 100 mls @ 100 mls/hr IVPB Q8H KATELYN PRN Reason: Protocol Last Admin: 05/16/18 03:13 Dose: 100 mls/hr Aztreonam 2 gm/ Sodium (Chloride) 100 mls @ 100 mls/hr IVPB Q8H KATELYN PRN Reason: Protocol Last Admin: 05/16/18 05:40 Dose: 100 mls/hr Sodium Chloride (Sodium Chloride 0.9%) 1,000 mls @ 80 mls/hr IV .[id number] [facility] Last Admin: 05/16/18 05:57 Dose: 80 mls/hr Ondansetron HCl (Zofran Inj) 4 mg IVP Q4 PRN PRN Reason: Nausea/Vomiting - Labs Labs: 05/16/18 06:08 05/16/18 06:08 PT 18.2 SECONDS (9.7-12.2) H 05/16/18 06:08 INR 1.7 05/16/18 06:08 APTT 32 SECONDS (21-34) 05/16/18 06:08
--- NOTE | 2018-05-16 09:43 | PCM.OP ---
Operative Report - Operative Report Date of Surgery/Procedure: 05/14/18 Time of Surgery/Procedure: 13:30 Surgeon: Roz Denise MD Anesthesia/Sedation: General Endotracheal Pre-Operative Diagnosis: Internal hernia s/p laparoscopic gastric bypass. Bowel Ischemia Post-Operative Diagnosis: Internal hernia with bowel ischemia Indication for Surgery: I was asked by Dr. Harley to assist in exploration for this patient who had previous laparoscopic gastric bypass in 2013 and now presents with acute abdomen, CT evidence of internal hernia and concerns for ishcemic bowel.During abdominal exploration, the alimentary limb of gastric bypass showed pachy areas of ischemic changes. An Intra-operative endoscopy was performed to assess the gastro-jejunal anastomosis and mucosal integrity of promixal jejunum. Operative Findings: See Operative details below Procedure/Operation Description: Procedure: Intra-operative upper endoscopy. Details: The patient was already intubated and sedated. Details of abdominal exploration witll be dictated separately by Dr. Stanford Harley. With the patient supine, an olympus endoscope was advanced under direct vision through the oropharynx into the esophagus. Esophagus was noted to have multiple slightly raised papillary lesions throughout the entirety of its length. Bloody fuid aspirated from within esophagus and gastric pouch. GEJ noted at 38-40cm. No hiatal hernia noted. Gastric pouch appears normal, measuring approxmiately 3cm length. Gastrojejunal anastomosis appears intact, without ulcers. Proximal jejunum evaluated, circumferential mucosal ischemia noted for approixmiately 5cm and what could be seen distally. Scope was not advanced any further into jejunum. Insufflation gas suctioned out of jejunum and gastric pouch for decompression. 18 Fr nasogastric tube was placed under direct endoscopic guidance into the distal gastric pouch. Again, clotted blood and debris was suctioned out of the gastric pouch and esophagus on the way out, being sure not to dislodge NGT that was secured to the nare at 45cm. The endoscope was removed. Patient remained intubated for Dr. Harley to continue abdominal exploration. I was present for the entirety of the procedure. Patient tolerated the endoscopy without complication or changes in hemodynamics. Estimated Blood Loss: 10mL Complications: none Discharge & Condition: See above details.
--- NOTE | 2018-05-16 10:18 | RAD ---
Date of service: 05/16/2018 HISTORY: vent COMPARISON: No prior. FINDINGS: In situ ETT, tip of which lies approximately 3.9 cm above dinh. No change right IJ central venous line with tip in the SVC. Situ NGT, tip of which appears to terminate at or just above the level of the EG junction. This should be advanced. LUNGS: No active pulmonary disease. PLEURA: No significant pleural effusion identified, no pneumothorax apparent. CARDIOVASCULAR: Normal. OSSEOUS STRUCTURES: No significant abnormalities. VISUALIZED UPPER ABDOMEN: Normal. OTHER FINDINGS: None. IMPRESSION: ETT and right IJ central line as above. The tip of the NGT appears to terminate at or just above the level of the EG junction and should be advanced. No acute cardiopulmonary disease. Findings discussed with ICU international trade compliance manager Dr. Hernandez at 10:10 a.m. with written down and read back verification.
[2018-05-16 13:53] LABS: ARTERIAL BLOOD GAS HCO3 20.1 mmol/L (21-28); ARTERIAL BLOOD GAS HEMOGLOBIN 7.7 g/dL (11.7-17.4); ARTERIAL BLOOD GAS O2 SAT 95.9 % (95-98); ARTERIAL BLOOD GAS PCO2 33 mm/Hg (35-45); ARTERIAL BLOOD GAS PH 7.36 (7.35-7.45); ARTERIAL BLOOD GAS PO2 278 mm/Hg (80-100); ARTERIAL BLOOD GAS TCO2 19.6 mmol/L (22-28)
[2018-05-16] MEDS ORDERED: Pneumococcal 23-Valent Vaccine IM ONE (14:00)
[2018-05-16] MEDS ORDERED: Rocuronium 10 mg/ml (5 ml) ONE (16:19)
--- NOTE | 2018-05-16 18:29 | PCM.SURG1 ---
Surgeon's Initial Post Op Note - Surgeon's Notes Surgeon: Dr. Mahendra Yang Home Housekeeper: Dr. Dailey PGY-4, Madid RICHARDS Type of Anesthesia: General Endo Anesthesia Administered By: Dr. Poe Pre-Operative Diagnosis: Mesenteric ischemia due to internal hernia Operative Findings: ischemic alimentary limb, parts of pancreatico-biliary limb and common limb Post-Operative Diagnosis: Mesenteric ischemia secondary to internal hernia s/p Gastric bypass Operation Performed: 1) Re-exploration. 2) Small bowel resection of ileum, small bowel resection of Binta limb with gastrojejunostomy, reversal of bypass, primary anastomosis of ileum-ileum, ileum-ileum, and ileum-jejunum. 3) Gastrostomy tube. 4) EGD by Dr. Denise Specimen/Specimens Removed: small bowel x3 Estimated Blood Loss: EBL {In ML}: 500 Blood Products Given: PRBC, FFP Drains Used: Sky, Wound Vac Post-Op Condition: Critical Date of Surgery/Procedure: 05/16/18 Time of Surgery/Procedure: 12:30
[2018-05-16 18:32] LABS: ARTERIAL BLOOD GAS HCO3 21.8 mmol/L (21-28); ARTERIAL BLOOD GAS O2 SAT 96.3 % (95-98); ARTERIAL BLOOD GAS PCO2 44 mm/Hg (35-45); ARTERIAL BLOOD GAS PH 7.31 (7.35-7.45); ARTERIAL BLOOD GAS PO2 148 mm/Hg (80-100); ARTERIAL BLOOD GAS TCO2 23.6 mmol/L (22-28)
[2018-05-16 19:01] LABS: BASO % 0.2 % (0.0-2.0); EOS # 0.1 K/uL (0.0-0.7); RBC 3.91 Mil/uL (3.80-5.20)
[2018-05-16 19:12] LABS: INR 1.3; PROTHROMBIN TIME 14.6 SECONDS (9.7-12.2)
[2018-05-16 19:17] LABS: EOS % 0.9 % (0.0-4.0); LYMPH # 0.5 K/uL (1.0-4.3); LYMPH % 3.7 % (20.0-40.0); MEAN CELL VOLUME 86.2 fL (81.0-99.0); MEAN CORPUSCULAR HEMOGLOBIN 28.6 pg (27.0-31.0); MEAN CORPUSCULAR HGB CONC 33.2 g/dL (33.0-37.0); MEAN PLATELET VOLUME 7.2 fL (7.2-11.7); MONO # 0.4 K/uL (0.0-0.8); MONO % 2.5 % (0.0-10.0); NEUT # 13.3 K/uL (1.8-7.0); NEUT % 92.7 % (50.0-75.0); NRBC % 0.1 % (0.0-2.0); PLATELET COUNT 132 K/uL (130-400); RED CELL DISTRIBUTION WIDTH 16.7 % (11.5-14.5); WHITE BLOOD COUNT 14.3 K/uL (4.8-10.8)
[2018-05-16 19:19] LABS: ALB/GLOB RATIO 1.2 (1.0-2.1); ALBUMIN 2.4 g/dL (3.5-5.0); ALT/SGPT 219 U/L (9-52); AST/SGOT 155 U/L (14-36); BLOOD UREA NITROGEN 17 mg/dL (7-17); CALCIUM 7.2 mg/dl (8.6-10.4); GFR NON-AFRICAN AMERICAN > 60
[2018-05-16 19:23] LABS: HEMOGLOBIN 11.2 g/dL (11.0-16.0)
[2018-05-16 20:00] LABS: BANDS 17 % (0-2); EOSINOPHIL 3 % (0-4); LYMPHOCYTE 4 % (20-40); MONOCYTE 5 % (0-10); NEUTROPHIL 71 % (50-75); TOTAL CELLS COUNTED 100
[2018-05-16 20:01] LABS: ANISOCYTOSIS SLIGHT; HYPOCHROMIC SLIGHT; PLATELET ESTIMATE NORMAL (NORMAL); POIKILOCYTOSIS SLIGHT
[2018-05-16 20:02] LABS: POLYCHROMIC SLIGHT; TARGET CELLS SLIGHT
--- NOTE | 2018-05-17 00:08 | CARD ---
APPROVED REPORT Date of service: 05/15/2018 EKG Measurement Heart [id number] <Conclusion> Sinus tachycardia Otherwise normal ECG
[2018-05-17] MEDS: Propofol 10 mg/ml 1,000 MG/100 ML VIAL IV PRN ×2 (00:19→09:45)
[2018-05-17] MEDS: Meropenem 1 GM in Sodium Chloride 0.9% 100 ML IVPB SCH ×3 (02:00→17:59)
[2018-05-17] MEDS: White Petrolatum/Mineral Oil Ophth Oint(3.5 gm) OU SCH ×5 (03:00→21:01)
[2018-05-17] MEDS: metroNIDAZOLE IV 500 mg/100 ml 500 MG/100 ML BAG IVPB SCH ×3 (03:00→19:51)
[2018-05-17] MEDS: Aztreonam 2 GM in Sodium Chloride 0.9% 100 ML IVPB SCH ×3 (05:07→21:07)
[2018-05-17 05:33] LABS: ARTERIAL BLOOD GAS O2 SAT 96.5 % (95-98); ARTERIAL BLOOD GAS PCO2 36 mm/Hg (35-45); ARTERIAL BLOOD GAS PH 7.39 (7.35-7.45); ARTERIAL BLOOD GAS PO2 171 mm/Hg (80-100); ARTERIAL BLOOD GAS TCO2 22.9 mmol/L (22-28)
[2018-05-17] MEDS: Sodium Chloride 0.9% 1,000 ML IV SCH (06:14)
[2018-05-17] MEDS: Cisatracurium Besylate 100 MG in Dextrose 5% In Water 240 ML IV SCH (06:14)
[2018-05-17 06:39] LABS: INR 1.4; PROTHROMBIN TIME 15.1 SECONDS (9.7-12.2)
[2018-05-17 06:41] LABS: BASO # 0.1 K/uL (0.0-0.2); BASO % 0.4 % (0.0-2.0); EOS # 0.3 K/uL (0.0-0.7); EOS % 1.8 % (0.0-4.0); HEMOGLOBIN 10.4 g/dL (11.0-16.0); LYMPH # 1.2 K/uL (1.0-4.3); LYMPH % 6.7 % (20.0-40.0); MEAN CELL VOLUME 86.4 fL (81.0-99.0); MEAN CORPUSCULAR HEMOGLOBIN 28.8 pg (27.0-31.0); MEAN CORPUSCULAR HGB CONC 33.4 g/dL (33.0-37.0); MEAN PLATELET VOLUME 7.4 fL (7.2-11.7); MONO # 0.6 K/uL (0.0-0.8); MONO % 3.6 % (0.0-10.0); NEUT % 87.5 % (50.0-75.0); NRBC % 0.2 % (0.0-2.0); PLATELET COUNT 136 K/uL (130-400); RBC 3.62 Mil/uL (3.80-5.20); WHITE BLOOD COUNT 17.1 K/uL (4.8-10.8)
[2018-05-17 06:47] LABS: ALB/GLOB RATIO 1.1 (1.0-2.1); ALBUMIN 2.2 g/dL (3.5-5.0); ALT/SGPT 186 U/L (9-52); AST/SGOT 89 U/L (14-36); BLOOD UREA NITROGEN 13 mg/dL (7-17); CALCIUM 7.2 mg/dl (8.6-10.4); GFR NON-AFRICAN AMERICAN > 60
--- NOTE | 2018-05-17 06:59 | OP ---
Copied To: Gómez Harley MD Attending MD: Gómez Harley MD PROCEDURE DATE: 05/16/2018 PREOPERATIVE DIAGNOSES: 1. Reduction of Internal hernia, status post gastric bypass. 2. Mesenteric ischemia. 3. Temporary abdominal closure. 4. Septic shock. POSTOPERATIVE DIAGNOSES: 1. 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 2. Gangrene of proximal ileum, mid ileum and mid jejunum. 2. Multiple abdominal collections. 3. Status post temporary abdominal closure after reduction of internal hernia. 4. Septic shock. PROCEDURES DONE: 1. Reexploration of recent laparotomy. 2. Drainage of pelvic and paracolic collections. 3. Resection of the terminal ileum, approximately 150 cm. 4. Resection of the gastrojejunostomy site, approximately 150 cm. 5. Resection of Binta limb of gastric bypass, approximately 110 cm. 6. Small bowel anastomosis of Jejunum to jejunum, jejunum to ileum, and the third anastomosis was from ileum to ileum. 7. Gastrostomy tube placement. 8. Esophagogastroduodenoscopy, done by Dr. Samara Denise. 9. Negative pressure wound VAC therapy of approximately 30 x 5 cm wound. SURGEON: The procedure was done by, Gómez Harley MD. ASSISTANTS: 1. Pola Mccray MD, bariatric surgeon. 2. Roz Denise MD, bariatric surgeon. ANESTHESIA: General endotracheal tube anesthesia. ESTIMATED BLOOD LOSS: Around 500 mL. DRAINS: The gastrostomy tube was placed as a drain and another JONAH drain was placed in the left upper quadrant. COMPLICATIONS: None. INTRAOPERATIVE FINDINGS: 1. The patient had a complete necrosis of the Binta limb of the gastric bypass, approximately 110 cm length. 2. The patient had a complete necrosis of the proximal ileum as well as mid part of the ileum approximately 150 cm. 3. The patient also had a complete necrosis of jejunojejunostomy site with necrosis of approximately 10 cm of distal biliopancreatic limb. 4. The patient had a pelvic collection and paracolic gutter collection in the left as well as the right side. 5. During the EGD, the patient had a viable stomach proximally, and there was no leak after the resection of the gastrojejunostomy site. DESCRIPTION OF PROCEDURE: On intraoperative steps, this is a 37-year-old female who was diagnosed with mesenteric ischemia, and the patient had internal hernia, status post gastric bypass, and after reduction of the internal hernia, the patient had a reperfusion of the small bowel except the Binta limb and temporary abdominal closure for optimization and resuscitation was done 2 days ago, and the patient's mother as well as the family were consented. The patient was taken to the OR both for reexploration as well as possible small-bowel resection, possible G-tube, possible gastrogastric anastomosis. The patient was brought to the OR, placed supine on the operating table. After induction of the anesthesia, the abdomen was prepped and draped in the usual sterile fashion. The temporary abdominal closure of leonila as well as sutures was taken out, and the patient was found to have necrosed Binta limb of approximately 110 cm and again exploration of the peritoneal cavity was done. There was a fluid collection in the pelvis, paracolic gutter that was drained and suction and irrigation as well as a washout was done. The patient also had ischemia of the mid ileum as well as proximal ileum at 50 cm, and the patient also had necrosis of the jejunojejunostomy site with biliopancreatic limb necrosis. First resection of the mid ileum as well as proximal ileum was done with Endo BEE and mesenteric was resected with LigaSure, and it was sent off the table for pathology. Then, the rest of the procedure was done by Dr. Mccray, and the resection of the Binta limb was done from the jejunojejunostomy site up to the gastrojejunostomy site. An EGD was done by Dr. Roz Denise to make sure there is no leak from the resection site of the gastrojejunostomy site, and there was no leak identified, and after that, the jejunojejunostomy site with some part of the biliopancreatic limb was also resected and it was sent off the table for pathology. Now, the biliopancreatic limb was connected to the remaining jejunum. Jejunum was connected to the ileum and ileum was connect to the ileum, and the patient had a total three small bowel anastomoses to prevent short bowel syndrome in the future, and now the gastrostomy tube was placed, and it was secured to the anterior abdominal wall and the drain was secured at the skin level and another drain was placed in the left upper quadrant. The drain was secured to the skin, and again, the washout of the abdominal cavity was done. The NG tube was placed in proximal Pouch of stomach. The peritoneal cavity was closed in two layer, the fascia with #1 Loop PDS continuous sutures with interrupted Prolene sutures, and wound VAC was applied. The patient tolerated the procedure well. Count of the instrument and gauze was correct. There was no apparent complication. The patient remained intubated and sent to ICU for further care. Gómez Harley MD JUWAN
--- NOTE | 2018-05-17 07:11 | CP.PCM.PN ---
<Maggie Dailey - Last Filed: 05/17/18 10:32> Subjective - Date & Time of Evaluation Date of Evaluation: 05/17/18 Time of Evaluation: 06:40 - Subjective Subjective: GENERAL SURGERY PROGRESS NOTE FOR DR. HARLEY Patient seen and examined at bedside in ICU. No acute events overnight other than fever of 100.6. Cooling blankets were applied. Pt remains intubated, sedated on propofol with fantanyl. Remains on Nimbex. She is off protonix drip. Overnight outputs: NG tube: minimal Gastrostomy tube: 350cc L Sky: 270cc R sky: 160cc Objective - Vital Signs/Intake and Output Vital Signs (last 24 hours): Temp Pulse Resp BP Pulse Ox 98.5 F 130 H 20 125/91 H 100 05/17/18 04:00 05/17/18 06:06 05/17/18 04:00 05/17/18 06:06 05/17/18 06:06 Intake and Output: 05/17/18 05/17/18 06:59 18:59 Intake Total 2713.7 Output Total 1870 Balance 843.7 - Medications Medications: Current Medications Artificial Tears (Lacri-Lube) 1 gm OU Q4H KATELYN Last Admin: 05/17/18 03:00 Dose: 1 gm Dextrose (Dextrose 50% Inj) 0 ml IV STAT PRN; Protocol PRN Reason: Hypoglycemia Protocol Last Admin: 05/16/18 23:40 Dose: 50 ml Dextrose (Glutose 15) 0 gm PO ONCE PRN; Protocol PRN Reason: Hypoglycemia Protocol Glucagon (Glucagen Diagnostic Kit) 0 mg IM STAT PRN; Protocol PRN Reason: Hypoglycemia Protocol Cisatracurium Besylate 100 mg/ (Dextrose) 250 mls @ 36.74 mls/hr IV .Q6H49M KATELYN ; 3 MCG/KG/MIN PRN Reason: Protocol Last Titration: 05/17/18 06:30 Dose: 0 mcg/kg/min, 0 mls/hr Fentanyl Citrate 2,500 mcg/ (Sodium Chloride) 250 mls @ 16.32 mls/hr IV .[id number] KATELYN; 2 MCG/KG/HR PRN Reason: Protocol Last Titration: 05/17/18 06:00 Dose: 3 mcg/kg/hr, 24.49 mls/hr Propofol (Diprivan) 1,000 mg in 100 mls @ 2.449 mls/hr IV .Q24H PRN; Protocol; 5 MCG/KG/MIN PRN Reason: TITRATE PER MD ORDER Last Titration: 05/17/18 02:00 Dose: 20 mcg/kg/min, 9.798 mls/hr Dextrose (Dextrose 5% In Water 1000 Ml) 1,000 mls @ 0 mls/hr IV .Q0M PRN; Protocol; Per Protocol PRN Reason: Hypoglycemia Protocol Metronidazole (Flagyl) 500 mg in 100 mls @ 100 mls/hr IVPB Q8H KATELYN PRN Reason: Protocol Last Admin: 05/17/18 03:00 Dose: 100 mls/hr Meropenem 1 gm/ Sodium (Chloride) 100 mls @ 100 mls/hr IVPB Q8H [facility] PRN Reason: Protocol Last Admin: 05/17/18 02:00 Dose: 100 mls/hr Aztreonam 2 gm/ Sodium (Chloride) 100 mls @ 100 mls/hr IVPB Q8H [facility] PRN Reason: Protocol Last Admin: 05/17/18 05:07 Dose: 100 mls/hr Sodium Chloride (Sodium Chloride 0.9%) 1,000 mls @ 125 mls/hr IV .Q8H [facility] Last Admin: 05/17/18 06:14 Dose: Not Given Ondansetron HCl (Zofran Inj) 4 mg IVP Q4 PRN PRN Reason: Nausea/Vomiting Pantoprazole Sodium (Protonix Inj) 40 mg IVP Q12H [facility] Last Admin: 05/17/18 00:00 Dose: 40 mg - Labs Labs: 05/17/18 06:27 05/17/18 06:27 PT 15.1 SECONDS (9.7-12.2) H 05/17/18 06:27 INR 1.4 05/17/18 06:27 APTT 33 SECONDS (21-34) 05/16/18 18:56 - Constitutional Appears: Toxic - Respiratory Exam Additional comments: on mechanical ventilation - Cardiovascular Exam Cardiovascular Exam: Tachycardia - GI/Abdominal Exam GI & Abdominal Exam: Soft. absent: Distended, Firm, Rigid Additional comments: Dressing clean/dry/intact over midline dressing Sky drain x2, NG tube, gastrostomy tubes in place - Neurological Exam Neurological Exam: absent: Alert, Awake Additional comments: sedated and paralyzed Assessment and Plan - Assessment and Plan (Free Text) Assessment: 37yo F with PMHx of [id number]-Y gastric bypass in 2014 now with bowel ischemia secondary to internal hernia. POD#3 s/p Exploratory laparotomy, Reduction of internal hernia, DANNI, Drainage of abdominal collections, temporary abdominal closure (fascia left open), EGD. POD#1 s/p Re-exploration, Small bowel resection of ileum, small bowel resection of Yenni limb with gastrojejunostomy, reversal of bypass, primary anastomosis of ileum-ileum, ileum-ileum, and ileum-jejunum, Gastrostomy tube in bypassed stomach, EGD Outputs: NG tube in gastric pouch: minimal Gastrostomy tube in bypassed stomach: 350cc from 7p-7a Right Sky: 160cc serous from 7p-7a Left Sky: 270cc serous from 7p-7a - Febrile to 100.6, remains tachycardic, off pressors since Wednesday - WBC 17, on Flagyl, Aztreonam, Merrem per ID - Cx from OR of peritoneal fluid: no growth so far - INR and H&H improved after PRBC and FFP - Monitor urine output to keep >0.5mg/kg/hr - Continue NPO w/ NG tube to low intermittent suction in gastric pouch and gastrostomy tube to gravity - Monitor for abdominal compartment syndrome - May stop nimbex - Wean sedation as per ICU team - Recommend TPN - Started on Heparin prophylaxis - Extubate per ICU team - Will need surgery in 4-6 weeks to restore GI continuity - Discussed plan with Dr. Cricket Dailey PGY-4 <Gómez Harley - Last Filed: 05/18/18 16:50> Objective - Vital Signs/Intake and Output Vital Signs (last 24 hours): Temp Pulse Resp BP Pulse Ox 100.9 F H 128 H 26 H 166/88 H 97 05/18/18 16:00 05/18/18 16:00 05/18/18 16:00 05/18/18 16:00 05/18/18 16:00 Intake and Output: 05/18/18 05/18/18 06:59 18:59 Intake Total 1933.7 946 Output Total 1870 745 Balance 63.7 201 - Medications Medications: Current Medications Dextrose (Dextrose 50% Inj) 0 ml IV STAT PRN; Protocol PRN Reason: Hypoglycemia Protocol Last Admin: 05/16/18 23:40 Dose: 50 ml Dextrose (Glutose 15) 0 gm PO ONCE PRN; Protocol PRN Reason: Hypoglycemia Protocol Glucagon (Glucagen Diagnostic Kit) 0 mg IM STAT PRN; Protocol PRN Reason: Hypoglycemia Protocol Heparin Sodium (Porcine) (Heparin) 5,000 units SC Q12 [facility] Last Admin: 05/18/18 10:13 Dose: 5,000 units Hydromorphone HCl (Dilaudid) 1 mg IVP Q2H [facility] Dextrose (Dextrose 5% In Water 1000 Ml) 1,000 mls @ 0 mls/hr IV .Q0M PRN; Protocol; Per Protocol PRN Reason: Hypoglycemia Protocol Metronidazole (Flagyl) 500 mg in 100 mls @ 100 mls/hr IVPB Q8H [facility] PRN Reason: Protocol Last Admin: 05/18/18 11:47 Dose: 100 mls/hr Meropenem 1 gm/ Sodium (Chloride) 100 mls @ 100 mls/hr IVPB Q8H [facility] PRN Reason: Protocol Last Admin: 05/18/18 11:02 Dose: 100 mls/hr Aztreonam 2 gm/ Sodium (Chloride) 100 mls @ 100 mls/hr IVPB Q8H [facility] PRN Reason: Protocol Last Admin: 05/18/18 14:31 Dose: 100 mls/hr Multivitamins/Vitamin C 10 ml/Chromium/Copper/Manganese/Zinc 1 ml/ Amino Acids 1,011 mls @ 42 mls/hr IV .Q24H ONE Stop: 05/18/18 17:59 Last Admin: 05/17/18 17:25 Dose: 42 mls/hr Sodium Chloride 35 meq/Potassium Phosphate 30 mmole/Magnesium Sulfate 6 meq/ Calcium Chloride 330 mg/Chromium/Copper/Manganese/Zinc 1 ml/ Multivitamins/ Vitamin C 10 ml/ Heparin Sodium ( Porcine) 1,000 units/ Amino Acids 1,035.5278 mls @ 42 mls/hr IV .Q24H ONE Stop: 05/19/18 17:59 Vancomycin/Sodium Chloride (Vancomycin 1 Gm/Ns 200 Ml) 1 gm in 200 mls @ 133.333 mls/hr IVPB Q12H [facility] PRN Reason: Protocol Stop: 05/23/18 17:01 Ipratropium [place] (Atrovent) 0.5 mg IH RQ6 [facility] Last Admin: 05/18/18 14:00 Dose: 0.5 mg Lorazepam (Ativan) 0.5 mg IVP Q12 PRN PRN Reason: Anxiety Last Admin: 05/18/18 10:29 Dose: 0.5 mg Morphine Sulfate (Morphine) 1 mg IVP Q4 PRN PRN Reason: Pain, severe (8-10) Last Admin: 05/18/18 15:51 Dose: 1 mg Nicotine (Nicoderm Cq) 1 patch TD DAILY [facility] Last Admin: 05/18/18 10:08 Dose: 1 patch Ondansetron HCl (Zofran Inj) 4 mg IVP Q4 PRN PRN Reason: Nausea/Vomiting Pantoprazole Sodium (Protonix Inj) 40 mg IVP Q12H [facility] Last Admin: 05/18/18 09:15 Dose: 40 mg - Labs Labs: 05/18/18 15:39 05/18/18 06:25 PT 14.3 SECONDS (9.7-12.2) H 05/18/18 06:25 INR 1.3 05/18/18 06:25 APTT 33 SECONDS (21-34) 05/16/18 18:56 Attending/Attestation - Attestation I have personally seen and examined this patient.: Yes I have fully participated in the care of the patient.: Yes I have reviewed all pertinent clinical information, including history, physical exam and plan: Yes Notes (Text): Pt was seen and examined at bedside Agree with above note and assessment Pt is improving clinically Possible Extubation today Drain serous c.w IV antibiotics DVT prophylaxis Plan d.w ICU attending in detail
[2018-05-17] MEDS: Dextrose 5%/0.45% NS 1,000 ML IV SCH ×3 (07:35→22:58)
[2018-05-17] MEDS ORDERED: Potassium Phosphate 15 MMOLE in Dextrose 5% In Water 250 ML IVPB ONE (08:00)
[2018-05-17 08:25] LABS: BANDS 23 % (0-2); EOSINOPHIL 4 % (0-4); LYMPHOCYTE 10 % (20-40); METAMYELOCYTE 1 % (0-0); MONOCYTE 2 % (0-10); NEUTROPHIL 60 % (50-75); PLATELET ESTIMATE NORMAL (NORMAL); TOTAL CELLS COUNTED 100
[2018-05-17 08:26] LABS: ANISOCYTOSIS SLIGHT; TOXIC GRANULATION PRESENT
--- NOTE | 2018-05-17 08:27 | RAD ---
Date of service: 05/16/2018 HISTORY: intubated COMPARISON: 05/16/2018 at 0659 hours FINDINGS: LUNGS: Interval subsegmental bandlike opacity projecting of the left heart probable subsegmental atelectasis here. Current lung volumes are shallow-similar to before. PLEURA: No significant pleural effusion identified, no pneumothorax apparent. CARDIOVASCULAR: Heart size normal. No jose pulmonary venous congestion suspect. OSSEOUS STRUCTURES: Mild thoracic spondylosis. VISUALIZED UPPER ABDOMEN: Surgical clips near GE junction OTHER FINDINGS: Endotracheal tube tip approximately 4 cm dinh-similar. Right internal jugular central catheter tip at SVC right atrial junction as before. NG tube tip still at distal esophagus probably just proximal to the GE junction -as mentioned previously it advancement is advised. This recommend advancement was already previously conveyed -please no prior report IMPRESSION: Interval subsegmental atelectasis left retrocardiac region. As before the NG tube tip is estimated at the distal esophagus. As before its advancement has been recommended. Please note prior report from chest x-ray 05/16/2018 at 0615 hours Sign
--- NOTE | 2018-05-17 08:38 | CP.CCUPN ---
<Jose Angel Cornelius - Last Filed: 05/17/18 15:12> CCU Subjective - Physician Review Subjective (Free Text): Jose Angel Cornelius DO PGY-1, ICU progress note for Dr. Thomas Pt was seen and examined at bedside. Nimbex and propofol has been discontinued, and pt was extubated shortly prior to examination. Pt was noted to be febrile last night, tmax 100.7, which was treated with hypothermia blanket. Pt is currently receiving Fentanyl 4mcg/kg/min for pain control. Pt only complains of moderate diffuse abdominal pain at this time. Pt denies headache, weakness, dizziness, lightheadedness, chest pain, shortness of breath, n/v/d. Pt has produced 3470 mL of urine over the past 24 hours. A 12-point ROS was reviewed and is otherwise unremarkable. CCU Objective - Vital Signs / Intake & Output Vital Signs (Last 4 hours): Vital Signs Pulse BP BP Pulse Ox 05/17/18 07:00 124 H 158/84 H 100 05/17/18 06:56 135/92 H 05/17/18 06:06 130 H 125/91 H 100 05/17/18 06:00 164/89 H 05/17/18 05:00 129 H 156/86 H 100 05/17/18 04:56 132/88 Intake and Output (Last 8hrs): Intake & Output 05/16/18 05/17/18 05/17/18 22:59 06:59 14:59 Intake Total 2425.5 2094.2 234.9 Output Total 1750 1370 100 Balance 675.5 724.2 134.9 Weight 87.09 kg 86.183 kg Intake: IV 1341.2 710 75.8 Intake, IV Amount 759.3 1384.2 159.1 Right Distal Port 61.5 98.4 Internal Jugular Right Forearm 460 925 125 Right Medial Port 164.0 262.4 24.3 Internal Jugular Right Proximal Port 73.8 98.4 9.8 Blood Product 325 Output: Gastric Amount 0 Right Nares 0 Drainage 1020 610 Left Lower Abdomen 240 140 Left Upper Abdomen 700 350 Medial Abdomen 0 0 Right Lower Abdomen 80 120 Urine 730 760 100 Urine, Voided 730 760 100 - Physical Exam Head: Positive for: Atraumatic, Normocephalic Pupils: Positive for: PERRL Extroacular Muscles: Positive for: EOMI Conjunctiva: Positive for: Normal Mouth: Positive for: Moist Mucous Membranes Nose (External): Positive for: Other ((+) NGT with small amount of black material in cannister (unchanged from prior examination)) Neck: Positive for: Other ((+) central line in right IJ) Respiratory/Chest: Positive for: Clear to Auscultation, Other ((+) upper airway sounds heard throughout lung examination). Negative for: Wheezes, Rales Cardiovascular: Positive for: Normal S1, S2, Tachycardic Abdomen: Positive for: Tenderness (diffuse tenderness), Other ( (+) large vertical incision with wound vac draining scant serous fluid, (+) bilateral min drains with serosanguinous fluid, (+) g-tube draining dark, bilious fluid) Upper Extremity: Positive for: Normal Inspection, NORMAL PULSES Lower Extremity: Positive for: Edema ((+) 1+ pitting edema) Neurological: Positive for: Other ((+) intubated, sedated and paralyzed). Negative for: GCS=15 (GCS= 6T; pt is on paralytic gent and intubated) Skin: Positive for: Warm, Dry Psychiatric: Positive for: Other (unable able to evaluated due to intubation, sedation, and paralysis) - Medications Active Medications: Active Medications Generic Name Dose Route Start Last Admin Trade Name Freq PRN Reason Stop Dose Admin Artificial Tears 1 gm 05/15/18 04:00 05/17/18 07:37 Lacri-Lube OU 1 gm Q4H KATELYN Administration Dextrose 0 ml 05/15/18 08:36 05/16/18 23:40 Dextrose 50% Inj IV 50 ml STAT PRN Administration Hypoglycemia Protocol Protocol Dextrose 0 gm 05/15/18 08:36 Glutose 15 PO ONCE PRN Hypoglycemia Protocol Protocol Glucagon 0 mg 05/15/18 08:36 Glucagen Diagnostic Kit IM STAT PRN Hypoglycemia Protocol Protocol Heparin Sodium (Porcine) 5,000 units 05/17/18 10:00 Heparin SC Q12 KATELYN Cisatracurium Besylate 100 mg/ 250 mls @ 36.74 mls/hr 05/14/18 17:45 06:30 Dextrose IV 0 mcg/kg/min .[id number] KATELYN 0 mls/hr Protocol Titration 3 MCG/KG/MIN Fentanyl Citrate 2,500 mcg/ 250 mls @ 16.32 mls/hr 05/14/18 17:45 05/17/18 07 :30 Sodium Chloride IV 3.5 mcg/kg/hr .[id number] KATELYN 28.57 mls/hr Protocol Titration 2 MCG/KG/HR Propofol 1,000 mg in 100 mls @ 2.449 mls/hr 05/14/18 17:40 05/17/18 07:52 Diprivan IV 10 mcg/kg/min .Q24H PRN 4.9 mls/hr TITRATE PER MD ORDER Titration Protocol 5 MCG/KG/MIN Dextrose 1,000 mls @ 0 mls/hr 05/15/18 08:36 Dextrose 5% In Water 1000 Ml IV .Q0M PRN Hypoglycemia Protocol Protocol Per Protocol Metronidazole 500 mg in 100 mls @ 100 mls/hr 05/15/18 12:00 05/17/18 03:00 Flagyl IVPB 100 mls/hr Q8H KATELYN Administration Protocol Meropenem 1 gm/ Sodium 100 mls @ 100 mls/hr 05/15/18 11:00 05/17/18 02:00 Chloride IVPB 100 mls/hr Q8H KATELYN Administration Protocol Aztreonam 2 gm/ Sodium 100 mls @ 100 mls/hr 05/15/18 14:00 05/17/18 05:07 Chloride IVPB 100 mls/hr Q8H KATELYN Administration Protocol Sodium Chloride 1,000 mls @ 125 mls/hr 05/16/18 20:57 05/17/18 06:14 Sodium Chloride 0.9% IV Not Given .Q8H KATELYN Potassium Phosphate 15 mmole/ 255 mls @ 42.5 mls/hr 05/17/18 08:00 05/17/18 08:23 Dextrose IVPB 05/17/18 13:59 42.5 mls/hr ONCE ONE Administration Dextrose/Sodium Chloride 1,000 mls @ 125 mls/hr 05/17/18 07:30 05/17/18 07:35 Dextrose 5%/0.45% Ns 1000 Ml IV 125 mls/hr .Q8H KATELYN Administration Ondansetron HCl 4 mg 05/14/18 02:57 Zofran Inj IVP Q4 PRN Nausea/Vomiting Pantoprazole Sodium 40 mg 05/16/18 10:00 05/17/18 00:00 Protonix Inj IVP 40 mg Q12H KATELYN Administration - Patient Studies Lab Studies: Microbiology Studies 05/14/18 20:37 MRSA Culture (Admit) - Final Naris MRSA NOT DETECTED 05/15/18 17:39 Urine Culture - Final Urine No Growth (<1,000 CFU/ML) 05/14/18 16:56 Gram Stain - Preliminary Peritoneal Fluid Body Fluid Culture - Preliminary No growth. 05/15/18 12:51 Blood Culture - Preliminary Blood-Thru Central Line NO GROWTH AFTER 24 HOURS 05/15/18 12:51 Blood Culture - Preliminary Blood-Thru Central Line NO GROWTH AFTER 24 HOURS Lab Studies 05/17/18 05/17/18 05/17/18 Range/Units 06:27 06:27 06:27 WBC 17.1 H (4.8-10.8) K/uL RBC 3.62 L (3.80-5.20) Mil/uL Hgb 10.4 L (11.0-16.0) g/dL Hct 31.3 L (34.0-47.0) % MCV 86.4 (81.0-99.0) fL MCH 28.8 (27.0-31.0) pg MCHC 33.4 (33.0-37.0) g/dL RDW 17.0 H (11.5-14.5) % Plt Count 136 (130-400) K/uL MPV 7.4 (7.2-11.7) fL Neut % (Auto) 87.5 H (50.0-75.0) % Lymph % (Auto) 6.7 L (20.0-40.0) % [place] % (Auto) 3.6 (0.0-10.0) % Eos % (Auto) 1.8 (0.0-4.0) % Baso % (Auto) 0.4 (0.0-2.0) % Neut # (Auto) 15.0 H (1.8-7.0) K/uL Lymph # (Auto) 1.2 (1.0-4.3) K/uL [place] # (Auto) 0.6 (0.0-0.8) K/uL Eos # (Auto) 0.3 (0.0-0.7) K/uL Baso # (Auto) 0.1 (0.0-0.2) K/uL Neutrophils % (Manual) 60 (50-75) % Band Neutrophils % 23 H* (0-2) % Lymphocytes % (Manual) 10 L (20-40) % Monocytes % (Manual) 2 (0-10) % Eosinophils % (Manual) 4 (0-4) % Metamyelocytes % 1 H (0-0) % Toxic Granulation Present Dohle Bodies Present Platelet Estimate Normal (NORMAL) Polychromasia Hypochromasia (manual) Poikilocytosis (manual Anisocytosis (manual) Slight Target Cells PT 15.1 H (9.7-12.2) SECONDS INR 1.4 APTT (21-34) SECONDS Puncture Site pCO2 (35-45) mm/Hg pO2 (80-100) mm/Hg HCO3 (21-28) mmol/L ABG pH (7.35-7.45) ABG Total CO2 (22-28) mmol/L ABG O2 Saturation (95-98) % ABG Base Excess (-2.0-3.0) mmol/L ABG Hemoglobin (11.7-17.4) g/dL ABG Carboxyhemoglobin (0.5-1.5) % POC ABG HHb (Measured) (0.0-5.0) % ABG Methemoglobin (0.0-3.0) % Jonathan Test ABG Potassium (3.6-5.2) mmol/L A-a O2 Difference mm/Hg Respiratory Index Hgb O2 Saturation (95.0-98.0) % Sodium 140 (132-148) mmol/l Chloride 110 H (98-107) mmol/L Glucose (65-105) mg/dl Lactate (0.7-2.1) mmol/L Vent Mode Mechanical Rate FiO2 % Tidal Volume PEEP Potassium 4.0 (3.6-5.2) mmol/L Carbon Dioxide 25 (22-30) mmol/L Anion Gap 10 (10-20) BUN 13 (7-17) mg/dL Creatinine 0.6 L (0.7-1.2) mg/dL Est GFR ( Amer) > 60 Est GFR (Non-Af Amer) > 60 POC Glucose (mg/dL) (65-110) mg/dL Random Glucose 62 L (65-105) mg/dL Hemoglobin A1c (4.2-6.5) % Calcium 7.2 L (8.6-10.4) mg/dl Phosphorus 1.9 L (2.5-4.5) mg/dL Magnesium 1.9 (1.6-2.3) mg/dL Total Bilirubin 2.2 H (0.2-1.3) mg/dL AST 89 H D (14-36) U/L ALT 186 H (9-52) U/L Alkaline Phosphatase 89 (38-126) U/L Total Protein 4.3 L (6.3-8.3) g/dL Albumin 2.2 L (3.5-5.0) g/dL Globulin 2.0 L (2.2-3.9) gm/dL Albumin/Globulin Ratio 1.1 (1.0-2.1) Arterial Blood Potassium (3.6-5.2) mmol/L Blood Type Antibody Screen 05/17/18 05/17/18 05/16/18 Range/Units 06:27 05:15 18:57 WBC (4.8-10.8) K/uL RBC (3.80-5.20) Mil/uL Hgb (11.0-16.0) g/dL Hct (34.0-47.0) % MCV (81.0-99.0) fL MCH (27.0-31.0) pg MCHC (33.0-37.0) g/dL RDW (11.5-14.5) % Plt Count (130-400) K/uL MPV (7.2-11.7) fL Neut % (Auto) (50.0-75.0) % Lymph % (Auto) (20.0-40.0) % [place] % (Auto) (0.0-10.0) % Eos % (Auto) (0.0-4.0) % Baso % (Auto) (0.0-2.0) % Neut # (Auto) (1.8-7.0) K/uL Lymph # (Auto) (1.0-4.3) K/uL [place] # (Auto) (0.0-0.8) K/uL Eos # (Auto) (0.0-0.7) K/uL Baso # (Auto) (0.0-0.2) K/uL Neutrophils % (Manual) (50-75) % Band Neutrophils % (0-2) % Lymphocytes % (Manual) (20-40) % Monocytes % (Manual) (0-10) % Eosinophils % (Manual) (0-4) % Metamyelocytes % (0-0) % Toxic Granulation Dohle Bodies Platelet Estimate (NORMAL) Polychromasia Hypochromasia (manual) Poikilocytosis (manual Anisocytosis (manual) Target Cells PT (9.7-12.2) SECONDS INR APTT (21-34) SECONDS Puncture Site [place] pCO2 36 (35-45) mm/Hg pO2 171 H (80-100) mm/Hg HCO3 23.0 (21-28) mmol/L ABG pH 7.39 (7.35-7.45) ABG Total CO2 22.9 (22-28) mmol/L ABG O2 Saturation 96.5 (95-98) % ABG Base Excess -2.6 L (-2.0-3.0) mmol/L ABG Hemoglobin (11.7-17.4) g/dL ABG Carboxyhemoglobin (0.5-1.5) % POC ABG HHb (Measured) (0.0-5.0) % ABG Methemoglobin (0.0-3.0) % Jonathan Test Na ABG Potassium 3.8 (3.6-5.2) mmol/L A-a O2 Difference 141.0 mm/Hg Respiratory Index 0.8 Hgb O2 Saturation (95.0-98.0) % Sodium 139.0 139 (132-148) mmol/l Chloride 115.0 H 113 H (98-107) mmol/L Glucose 76 (65-105) mg/dl Lactate 0.9 (0.7-2.1) mmol/L Vent Mode Prvc Mechanical Rate 20 FiO2 50.0 % Tidal Volume 500 PEEP 5 Potassium 4.7 (3.6-5.2) mmol/L Carbon Dioxide 21 L (22-30) mmol/L Anion Gap 11 (10-20) BUN 17 (7-17) mg/dL Creatinine 0.6 L (0.7-1.2) mg/dL Est GFR ( Amer) > 60 Est GFR (Non-Af Amer) > 60 POC Glucose (mg/dL) (65-110) mg/dL Random Glucose 76 (65-105) mg/dL Hemoglobin A1c 5.7 (4.2-6.5) % Calcium 7.2 L (8.6-10.4) mg/dl Phosphorus (2.5-4.5) mg/dL Magnesium (1.6-2.3) mg/dL Total Bilirubin 2.9 H (0.2-1.3) mg/dL AST 155 H D (14-36) U/L ALT 219 H D (9-52) U/L Alkaline Phosphatase 75 (38-126) U/L Total Protein 4.4 L (6.3-8.3) g/dL Albumin 2.4 L (3.5-5.0) g/dL Globulin 2.0 L (2.2-3.9) gm/dL Albumin/Globulin Ratio 1.2 (1.0-2.1) Arterial Blood Potassium 3.8 (3.6-5.2) mmol/L Blood Type Antibody Screen 05/16/18 05/16/18 05/16/18 Range/Units 18:57 18:56 18:28 WBC 14.3 H (4.8-10.8) K/uL RBC 3.91 (3.80-5.20) Mil/uL Hgb 11.2 D (11.0-16.0) g/dL Hct 33.7 L (34.0-47.0) % MCV 86.2 (81.0-99.0) fL MCH 28.6 (27.0-31.0) pg MCHC 33.2 (33.0-37.0) g/dL RDW 16.7 H (11.5-14.5) % Plt Count 132 (130-400) K/uL MPV 7.2 (7.2-11.7) fL Neut % (Auto) 92.7 H (50.0-75.0) % Lymph % (Auto) 3.7 L (20.0-40.0) % [place] % (Auto) 2.5 (0.0-10.0) % Eos % (Auto) 0.9 (0.0-4.0) % Baso % (Auto) 0.2 (0.0-2.0) % Neut # (Auto) 13.3 H (1.8-7.0) K/uL Lymph # (Auto) 0.5 L (1.0-4.3) K/uL [place] # (Auto) 0.4 (0.0-0.8) K/uL Eos # (Auto) 0.1 (0.0-0.7) K/uL Baso # (Auto) 0.0 (0.0-0.2) K/uL Neutrophils % (Manual) 71 (50-75) % Band Neutrophils % 17 H* (0-2) % Lymphocytes % (Manual) 4 L (20-40) % Monocytes % (Manual) 5 (0-10) % Eosinophils % (Manual) 3 (0-4) % Metamyelocytes % (0-0) % Toxic Granulation Dohle Bodies Platelet Estimate Normal (NORMAL) Polychromasia Slight Hypochromasia (manual) Slight Poikilocytosis (manual Slight Anisocytosis (manual) Slight Target Cells Slight PT 14.6 H (9.7-12.2) SECONDS INR 1.3 APTT 33 (21-34) SECONDS Puncture Site [place] pCO2 44 (35-45) mm/Hg pO2 148 H (80-100) mm/Hg HCO3 21.8 (21-28) mmol/L ABG pH 7.31 L (7.35-7.45) ABG Total CO2 23.6 (22-28) mmol/L ABG O2 Saturation 96.3 (95-98) % ABG Base Excess -4.1 L (-2.0-3.0) mmol/L ABG Hemoglobin (11.7-17.4) g/dL ABG Carboxyhemoglobin (0.5-1.5) % POC ABG HHb (Measured) (0.0-5.0) % ABG Methemoglobin (0.0-3.0) % Jonathan Test Na ABG Potassium 4.8 (3.6-5.2) mmol/L A-a O2 Difference 154.0 mm/Hg Respiratory Index 1.0 Hgb O2 Saturation (95.0-98.0) % Sodium 138.0 (132-148) mmol/l Chloride 113.0 H (98-107) mmol/L Glucose 79 (65-105) mg/dl Lactate 1.6 (0.7-2.1) mmol/L Vent Mode Prvc Mechanical Rate 20 FiO2 50.0 % Tidal Volume 500 PEEP 5 Potassium (3.6-5.2) mmol/L Carbon Dioxide (22-30) mmol/L Anion Gap (10-20) BUN (7-17) mg/dL Creatinine (0.7-1.2) mg/dL Est GFR ( Amer) Est GFR (Non-Af Amer) POC Glucose (mg/dL) (65-110) mg/dL Random Glucose (65-105) mg/dL Hemoglobin A1c (4.2-6.5) % Calcium (8.6-10.4) mg/dl Phosphorus (2.5-4.5) mg/dL Magnesium (1.6-2.3) mg/dL Total Bilirubin (0.2-1.3) mg/dL AST (14-36) U/L ALT (9-52) U/L Alkaline Phosphatase (38-126) U/L Total Protein (6.3-8.3) g/dL Albumin (3.5-5.0) g/dL Globulin (2.2-3.9) gm/dL Albumin/Globulin Ratio (1.0-2.1) Arterial Blood Potassium 4.8 (3.6-5.2) mmol/L Blood Type Antibody Screen 05/16/18 05/16/18 05/16/18 Range/Units 13:49 11:31 06:08 WBC (4.8-10.8) K/uL RBC (3.80-5.20) Mil/uL Hgb (11.0-16.0) g/dL Hct (34.0-47.0) % MCV (81.0-99.0) fL MCH (27.0-31.0) pg MCHC (33.0-37.0) g/dL RDW (11.5-14.5) % Plt Count (130-400) K/uL MPV (7.2-11.7) fL Neut % (Auto) (50.0-75.0) % Lymph % (Auto) (20.0-40.0) % [place] % (Auto) (0.0-10.0) % Eos % (Auto) (0.0-4.0) % Baso % (Auto) (0.0-2.0) % Neut # (Auto) (1.8-7.0) K/uL Lymph # (Auto) (1.0-4.3) K/uL [place] # (Auto) (0.0-0.8) K/uL Eos # (Auto) (0.0-0.7) K/uL Baso # (Auto) (0.0-0.2) K/uL Neutrophils % (Manual) 37 L (50-75) % Band Neutrophils % 54 H* (0-2) % Lymphocytes % (Manual) 6 L (20-40) % Monocytes % (Manual) 2 (0-10) % Eosinophils % (Manual) 1 (0-4) % Metamyelocytes % (0-0) % Toxic Granulation Dohle Bodies Platelet Estimate Normal (NORMAL) Polychromasia Hypochromasia (manual) Slight Poikilocytosis (manual Slight Anisocytosis (manual) Slight Target Cells PT (9.7-12.2) SECONDS INR APTT (21-34) SECONDS Puncture Site [place] pCO2 33 L (35-45) mm/Hg pO2 278 H (80-100) mm/Hg HCO3 20.1 L (21-28) mmol/L ABG pH 7.36 (7.35-7.45) ABG Total CO2 19.6 L (22-28) mmol/L ABG O2 Saturation 95.9 (95-98) % ABG Base Excess -6.2 L (-2.0-3.0) mmol/L ABG Hemoglobin 7.7 L (11.7-17.4) g/dL ABG Carboxyhemoglobin 0 L (0.5-1.5) % POC ABG HHb (Measured) 4.1 (0.0-5.0) % ABG Methemoglobin 0.4 (0.0-3.0) % Jonathan Test Na ABG Potassium (3.6-5.2) mmol/L A-a O2 Difference 394.0 mm/Hg Respiratory Index 1.4 Hgb O2 Saturation 95.5 (95.0-98.0) % Sodium (132-148) mmol/l Chloride (98-107) mmol/L Glucose (65-105) mg/dl Lactate (0.7-2.1) mmol/L Vent Mode Prvc Mechanical Rate 14 FiO2 100.0 % Tidal Volume 500 PEEP Potassium (3.6-5.2) mmol/L Carbon Dioxide (22-30) mmol/L Anion Gap (10-20) BUN (7-17) mg/dL Creatinine (0.7-1.2) mg/dL Est GFR ( Amer) Est GFR (Non-Af Amer) POC Glucose (mg/dL) 94 (65-110) mg/dL Random Glucose (65-105) mg/dL Hemoglobin A1c (4.2-6.5) % Calcium (8.6-10.4) mg/dl Phosphorus (2.5-4.5) mg/dL Magnesium (1.6-2.3) mg/dL Total Bilirubin (0.2-1.3) mg/dL AST (14-36) U/L ALT (9-52) U/L Alkaline Phosphatase (38-126) U/L Total Protein (6.3-8.3) g/dL Albumin (3.5-5.0) g/dL Globulin (2.2-3.9) gm/dL Albumin/Globulin Ratio (1.0-2.1) Arterial Blood Potassium (3.6-5.2) mmol/L Blood Type Antibody Screen 05/16/18 05/15/18 05/15/18 Range/Units 00:13 17:54 11:30 WBC (4.8-10.8) K/uL RBC (3.80-5.20) Mil/uL Hgb (11.0-16.0) g/dL Hct (34.0-47.0) % MCV (81.0-99.0) fL MCH (27.0-31.0) pg MCHC (33.0-37.0) g/dL RDW (11.5-14.5) % Plt Count (130-400) K/uL MPV (7.2-11.7) fL Neut % (Auto) (50.0-75.0) % Lymph % (Auto) (20.0-40.0) % [place] % (Auto) (0.0-10.0) % Eos % (Auto) (0.0-4.0) % Baso % (Auto) (0.0-2.0) % Neut # (Auto) (1.8-7.0) K/uL Lymph # (Auto) (1.0-4.3) K/uL [place] # (Auto) (0.0-0.8) K/uL Eos # (Auto) (0.0-0.7) K/uL Baso # (Auto) (0.0-0.2) K/uL Neutrophils % (Manual) (50-75) % Band Neutrophils % (0-2) % Lymphocytes % (Manual) (20-40) % Monocytes % (Manual) (0-10) % Eosinophils % (Manual) (0-4) % Metamyelocytes % (0-0) % Toxic Granulation Dohle Bodies Platelet Estimate (NORMAL) Polychromasia Hypochromasia (manual) Poikilocytosis (manual Anisocytosis (manual) Target Cells PT (9.7-12.2) SECONDS INR APTT (21-34) SECONDS Puncture Site pCO2 (35-45) mm/Hg pO2 (80-100) mm/Hg HCO3 (21-28) mmol/L ABG pH (7.35-7.45) ABG Total CO2 (22-28) mmol/L ABG O2 Saturation (95-98) % ABG Base Excess (-2.0-3.0) mmol/L ABG Hemoglobin (11.7-17.4) g/dL ABG Carboxyhemoglobin (0.5-1.5) % POC ABG HHb (Measured) (0.0-5.0) % ABG Methemoglobin (0.0-3.0) % Jonathan Test ABG Potassium (3.6-5.2) mmol/L A-a O2 Difference mm/Hg Respiratory Index Hgb O2 Saturation (95.0-98.0) % Sodium (132-148) mmol/l Chloride (98-107) mmol/L Glucose (65-105) mg/dl Lactate (0.7-2.1) mmol/L Vent Mode Mechanical Rate FiO2 % Tidal Volume PEEP Potassium (3.6-5.2) mmol/L Carbon Dioxide (22-30) mmol/L Anion Gap (10-20) BUN (7-17) mg/dL Creatinine (0.7-1.2) mg/dL Est GFR ( Amer) Est GFR (Non-Af Amer) POC Glucose (mg/dL) 93 103 84 (65-110) mg/dL Random Glucose (65-105) mg/dL Hemoglobin A1c (4.2-6.5) % Calcium (8.6-10.4) mg/dl Phosphorus (2.5-4.5) mg/dL Magnesium (1.6-2.3) mg/dL Total Bilirubin (0.2-1.3) mg/dL AST (14-36) U/L ALT (9-52) U/L Alkaline Phosphatase (38-126) U/L Total Protein (6.3-8.3) g/dL Albumin (3.5-5.0) g/dL Globulin (2.2-3.9) gm/dL Albumin/Globulin Ratio (1.0-2.1) Arterial Blood Potassium (3.6-5.2) mmol/L Blood Type Antibody Screen 05/14/18 05/14/18 Range/Units 19:52 12:56 WBC (4.8-10.8) K/uL RBC (3.80-5.20) Mil/uL Hgb (11.0-16.0) g/dL Hct (34.0-47.0) % MCV (81.0-99.0) fL MCH (27.0-31.0) pg MCHC (33.0-37.0) g/dL RDW (11.5-14.5) % Plt Count (130-400) K/uL MPV (7.2-11.7) fL Neut % (Auto) (50.0-75.0) % Lymph % (Auto) (20.0-40.0) % [place] % (Auto) (0.0-10.0) % Eos % (Auto) (0.0-4.0) % Baso % (Auto) (0.0-2.0) % Neut # (Auto) (1.8-7.0) K/uL Lymph # (Auto) (1.0-4.3) K/uL [place] # (Auto) (0.0-0.8) K/uL Eos # (Auto) (0.0-0.7) K/uL Baso # (Auto) (0.0-0.2) K/uL Neutrophils % (Manual) (50-75) % Band Neutrophils % (0-2) % Lymphocytes % (Manual) (20-40) % Monocytes % (Manual) (0-10) % Eosinophils % (Manual) (0-4) % Metamyelocytes % (0-0) % Toxic Granulation Dohle Bodies Platelet Estimate (NORMAL) Polychromasia Hypochromasia (manual) Poikilocytosis (manual Anisocytosis (manual) Target Cells PT (9.7-12.2) SECONDS INR APTT (21-34) SECONDS Puncture Site pCO2 (35-45) mm/Hg pO2 (80-100) mm/Hg HCO3 (21-28) mmol/L ABG pH (7.35-7.45) ABG Total CO2 (22-28) mmol/L ABG O2 Saturation (95-98) % ABG Base Excess (-2.0-3.0) mmol/L ABG Hemoglobin (11.7-17.4) g/dL ABG Carboxyhemoglobin (0.5-1.5) % POC ABG HHb (Measured) (0.0-5.0) % ABG Methemoglobin (0.0-3.0) % Jonathan Test ABG Potassium (3.6-5.2) mmol/L A-a O2 Difference mm/Hg Respiratory Index Hgb O2 Saturation (95.0-98.0) % Sodium (132-148) mmol/l Chloride (98-107) mmol/L Glucose (65-105) mg/dl Lactate (0.7-2.1) mmol/L Vent Mode Mechanical Rate FiO2 % Tidal Volume PEEP Potassium (3.6-5.2) mmol/L Carbon Dioxide (22-30) mmol/L Anion Gap (10-20) BUN (7-17) mg/dL Creatinine (0.7-1.2) mg/dL Est GFR ( Amer) Est GFR (Non-Af Amer) POC Glucose (mg/dL) 162 H (65-110) mg/dL Random Glucose (65-105) mg/dL Hemoglobin A1c (4.2-6.5) % Calcium (8.6-10.4) mg/dl Phosphorus (2.5-4.5) mg/dL Magnesium (1.6-2.3) mg/dL Total Bilirubin (0.2-1.3) mg/dL AST (14-36) U/L ALT (9-52) U/L Alkaline Phosphatase (38-126) U/L Total Protein (6.3-8.3) g/dL Albumin (3.5-5.0) g/dL Globulin (2.2-3.9) gm/dL Albumin/Globulin Ratio (1.0-2.1) Arterial Blood Potassium (3.6-5.2) mmol/L Blood Type O POSITIVE Antibody Screen Negative Laboratory Results - last 24 hr 05/14/18 05/14/18 05/15/18 12:56 19:52 11:30 WBC RBC Hgb Hct MCV MCH MCHC RDW Plt Count MPV Neut % (Auto) Lymph % (Auto) [place] % (Auto) Eos % (Auto) Baso % (Auto) Neut # (Auto) Lymph # (Auto) [place] # (Auto) Eos # (Auto) Baso # (Auto) Neutrophils % (Manual) Band Neutrophils % Lymphocytes % (Manual) Monocytes % (Manual) Eosinophils % (Manual) Metamyelocytes % Toxic Granulation Dohle Bodies Platelet Estimate Polychromasia Hypochromasia (manual) Poikilocytosis (manual Anisocytosis (manual) Target Cells PT INR APTT Puncture Site pCO2 pO2 HCO3 ABG pH ABG Total CO2 ABG O2 Saturation ABG Base Excess ABG Hemoglobin ABG Carboxyhemoglobin POC ABG HHb (Measured) ABG Methemoglobin Jonathan Test ABG Potassium A-a O2 Difference Respiratory Index Hgb O2 Saturation Sodium Chloride Glucose Lactate Vent Mode Mechanical Rate FiO2 Tidal Volume PEEP Potassium Carbon Dioxide Anion Gap BUN Creatinine Est GFR ( Amer) Est GFR (Non-Af Amer) POC Glucose (mg/dL) 162 H 84 Random Glucose Hemoglobin A1c Calcium Phosphorus Magnesium Total Bilirubin AST ALT Alkaline Phosphatase Total Protein Albumin Globulin Albumin/Globulin Ratio Arterial Blood Potassium Blood Type O POSITIVE Antibody Screen Negative 05/15/18 05/16/18 05/16/18 17:54 00:13 06:08 WBC RBC Hgb Hct MCV MCH MCHC RDW Plt Count MPV Neut % (Auto) Lymph % (Auto) [place] % (Auto) Eos % (Auto) Baso % (Auto) Neut # (Auto) Lymph # (Auto) [place] # (Auto) Eos # (Auto) Baso # (Auto) Neutrophils % (Manual) 37 L Band Neutrophils % 54 H* Lymphocytes % (Manual) 6 L Monocytes % (Manual) 2 Eosinophils % (Manual) 1 Metamyelocytes % Toxic Granulation Dohle Bodies Platelet Estimate Normal Polychromasia Hypochromasia (manual) Slight Poikilocytosis (manual Slight Anisocytosis (manual) Slight Target Cells PT INR APTT Puncture Site pCO2 pO2 HCO3 ABG pH ABG Total CO2 ABG O2 Saturation ABG Base Excess ABG Hemoglobin ABG Carboxyhemoglobin POC ABG HHb (Measured) ABG Methemoglobin Jonathan Test ABG Potassium A-a O2 Difference Respiratory Index Hgb O2 Saturation Sodium Chloride Glucose Lactate Vent Mode Mechanical Rate FiO2 Tidal Volume PEEP Potassium Carbon Dioxide Anion Gap BUN Creatinine Est GFR ( Amer) Est GFR (Non-Af Amer) POC Glucose (mg/dL) 103 93 Random Glucose Hemoglobin A1c Calcium Phosphorus Magnesium Total Bilirubin AST ALT Alkaline Phosphatase Total Protein Albumin Globulin Albumin/Globulin Ratio Arterial Blood Potassium Blood Type Antibody Screen 05/16/18 05/16/18 05/16/18 11:31 13:49 18:28 WBC RBC Hgb Hct MCV MCH MCHC RDW Plt Count MPV Neut % (Auto) Lymph % (Auto) [place] % (Auto) Eos % (Auto) Baso % (Auto) Neut # (Auto) Lymph # (Auto) [place] # (Auto) Eos # (Auto) Baso # (Auto) Neutrophils % (Manual) Band Neutrophils % Lymphocytes % (Manual) Monocytes % (Manual) Eosinophils % (Manual) Metamyelocytes % Toxic Granulation Dohle Bodies Platelet Estimate Polychromasia Hypochromasia (manual) Poikilocytosis (manual Anisocytosis (manual) Target Cells PT INR APTT Puncture Site Line Barbara pCO2 33 L 44 pO2 278 H 148 H HCO3 20.1 L 21.8 ABG pH 7.36 7.31 L ABG Total CO2 19.6 L 23.6 ABG O2 Saturation 95.9 96.3 ABG Base Excess -6.2 L -4.1 L ABG Hemoglobin 7.7 L ABG Carboxyhemoglobin 0 L POC ABG HHb (Measured) 4.1 ABG Methemoglobin 0.4 Jonathan Test Na Na ABG Potassium 4.8 A-a O2 Difference 394.0 154.0 Respiratory Index 1.4 1.0 Hgb O2 Saturation 95.5 Sodium 138.0 Chloride 113.0 H Glucose 79 Lactate 1.6 Vent Mode Prvc Prvc Mechanical Rate 14 20 FiO2 100.0 50.0 Tidal Volume 500 500 PEEP 5 Potassium Carbon Dioxide Anion Gap BUN Creatinine Est GFR ( Amer) Est GFR (Non-Af Amer) POC Glucose (mg/dL) 94 Random Glucose Hemoglobin A1c Calcium Phosphorus Magnesium Total Bilirubin AST ALT Alkaline Phosphatase Total Protein Albumin Globulin Albumin/Globulin Ratio Arterial Blood Potassium 4.8 Blood Type Antibody Screen 05/16/18 05/16/18 05/16/18 18:56 18:57 18:57 WBC 14.3 H RBC 3.91 Hgb 11.2 D Hct 33.7 L MCV 86.2 MCH 28.6 MCHC 33.2 RDW 16.7 H Plt Count 132 MPV 7.2 Neut % (Auto) 92.7 H Lymph % (Auto) 3.7 L [place] % (Auto) 2.5 Eos % (Auto) 0.9 Baso % (Auto) 0.2 Neut # (Auto) 13.3 H Lymph # (Auto) 0.5 L [place] # (Auto) 0.4 Eos # (Auto) 0.1 Baso # (Auto) 0.0 Neutrophils % (Manual) 71 Band Neutrophils % 17 H* Lymphocytes % (Manual) 4 L Monocytes % (Manual) 5 Eosinophils % (Manual) 3 Metamyelocytes % Toxic Granulation Dohle Bodies Platelet Estimate Normal Polychromasia Slight Hypochromasia (manual) Slight Poikilocytosis (manual Slight Anisocytosis (manual) Slight Target Cells Slight PT 14.6 H INR 1.3 APTT 33 Puncture Site pCO2 pO2 HCO3 ABG pH ABG Total CO2 ABG O2 Saturation ABG Base Excess ABG Hemoglobin ABG Carboxyhemoglobin POC ABG HHb (Measured) ABG Methemoglobin Jonathan Test ABG Potassium A-a O2 Difference Respiratory Index Hgb O2 Saturation Sodium 139 Chloride 113 H Glucose Lactate Vent Mode Mechanical Rate FiO2 Tidal Volume PEEP Potassium 4.7 Carbon Dioxide 21 L Anion Gap 11 BUN 17 Creatinine 0.6 L Est GFR ( Amer) > 60 Est GFR (Non-Af Amer) > 60 POC Glucose (mg/dL) Random Glucose 76 Hemoglobin A1c Calcium 7.2 L Phosphorus Magnesium Total Bilirubin 2.9 H AST 155 H D ALT 219 H D Alkaline Phosphatase 75 Total Protein 4.4 L Albumin 2.4 L Globulin 2.0 L Albumin/Globulin Ratio 1.2 Arterial Blood Potassium Blood Type Antibody Screen 05/17/18 05/17/18 05/17/18 05:15 06:27 06:27 WBC 17.1 H RBC 3.62 L Hgb 10.4 L Hct 31.3 L MCV 86.4 MCH 28.8 MCHC 33.4 RDW 17.0 H Plt Count 136 MPV 7.4 Neut % (Auto) 87.5 H Lymph % (Auto) 6.7 L [place] % (Auto) 3.6 Eos % (Auto) 1.8 Baso % (Auto) 0.4 Neut # (Auto) 15.0 H Lymph # (Auto) 1.2 [place] # (Auto) 0.6 Eos # (Auto) 0.3 Baso # (Auto) 0.1 Neutrophils % (Manual) 60 Band Neutrophils % 23 H* Lymphocytes % (Manual) 10 L Monocytes % (Manual) 2 Eosinophils % (Manual) 4 Metamyelocytes % 1 H Toxic Granulation Present Dohle Bodies Present Platelet Estimate Normal Polychromasia Hypochromasia (manual) Poikilocytosis (manual Anisocytosis (manual) Slight Target Cells PT INR APTT Puncture Site [place] pCO2 36 pO2 171 H HCO3 23.0 ABG pH 7.39 ABG Total CO2 22.9 ABG O2 Saturation 96.5 ABG Base Excess -2.6 L ABG Hemoglobin ABG Carboxyhemoglobin POC ABG HHb (Measured) ABG Methemoglobin Jonathan Test Na ABG Potassium 3.8 A-a O2 Difference 141.0 Respiratory Index 0.8 Hgb O2 Saturation Sodium 139.0 Chloride 115.0 H Glucose 76 Lactate 0.9 Vent Mode Prvc Mechanical Rate 20 FiO2 50.0 Tidal Volume 500 PEEP 5 Potassium Carbon Dioxide Anion Gap BUN Creatinine Est GFR ( Amer) Est GFR (Non-Af Amer) POC Glucose (mg/dL) Random Glucose Hemoglobin A1c 5.7 Calcium Phosphorus Magnesium Total Bilirubin AST ALT Alkaline Phosphatase Total Protein Albumin Globulin Albumin/Globulin Ratio Arterial Blood Potassium 3.8 Blood Type Antibody Screen 05/17/18 05/17/18 06:27 06:27 WBC RBC Hgb Hct MCV MCH MCHC RDW Plt Count MPV Neut % (Auto) Lymph % (Auto) [place] % (Auto) Eos % (Auto) Baso % (Auto) Neut # (Auto) Lymph # (Auto) [place] # (Auto) Eos # (Auto) Baso # (Auto) Neutrophils % (Manual) Band Neutrophils % Lymphocytes % (Manual) Monocytes % (Manual) Eosinophils % (Manual) Metamyelocytes % Toxic Granulation Dohle Bodies Platelet Estimate Polychromasia Hypochromasia (manual) Poikilocytosis (manual Anisocytosis (manual) Target Cells PT 15.1 H INR 1.4 APTT Puncture Site pCO2 pO2 HCO3 ABG pH ABG Total CO2 ABG O2 Saturation ABG Base Excess ABG Hemoglobin ABG Carboxyhemoglobin POC ABG HHb (Measured) ABG Methemoglobin Jonathan Test ABG Potassium A-a O2 Difference Respiratory Index Hgb O2 Saturation Sodium 140 Chloride 110 H Glucose Lactate Vent Mode Mechanical Rate FiO2 Tidal Volume PEEP Potassium 4.0 Carbon Dioxide 25 Anion Gap 10 BUN 13 Creatinine 0.6 L Est GFR ( Amer) > 60 Est GFR (Non-Af Amer) > 60 POC Glucose (mg/dL) Random Glucose 62 L Hemoglobin A1c Calcium 7.2 L Phosphorus 1.9 L Magnesium 1.9 Total Bilirubin 2.2 H AST 89 H D ALT 186 H Alkaline Phosphatase 89 Total Protein 4.3 L Albumin 2.2 L Globulin 2.0 L Albumin/Globulin Ratio 1.1 Arterial Blood Potassium Blood Type Antibody Screen Fingerstick Blood Sugar Results: 78 Review of Systems - Review of Systems All systems: reviewed and no additional remarkable complaints except (as per HPI ) Critical Care Progress Note - Extremities/Vascular Does the Patient have a Central Venous Catheter?: Yes Insertion Site: Internal Jugular Vein (right side) Does the Patient have a Srivastava Catheter?: Yes - Prophylaxis GI Prophylaxis GI: PPI - Prophylaxis DVT Prophylaxis DVT: Heparin SQ - Nutrition Nutrition: Nutrition Category Date Time Status NPO Diet [DIET] Diets 05/14/18 Breakfast Active Assessment/Plan - Assessment and Plan (Free Text) Assessment: This is a 37 year old female with PMH of recurrent SBOs s/p gastric bypass (2013 ), HTN, HLD, DM2, obesity, gastritis, asthma who was BIBA to ED on 05/14/18 with complaints of 1 day history of severe abdominal pain associated with 3 episodes of NBNB emesis. Abd/pelv CT was positive for SBO, with small amount of free fluid in the pelvis, enteritis, mesenteric edema and internal hernia. Pt noted to have BRB MN, with hypotension (placed on levophed gtt) and was taken to the OR for emergency ex lap for possible bowel ischemia. In the OR, internal hernia was reduced, lysis of adhesions, and pt was noted to have mesenteric ischemia of yenni limb. One JONAH drain was placed into pelvis, and pt was brought to ICU with open surgical abdominal wound, intubation, checmical paralysis, and sedation. Pt has plans to return to OR on 05/16/18. On 05/15 POD#1, pt anemic (hgb 7.7) and received 2 units of FFP and 2 units of pRBCs with adequate response. Levophed was discontinuated on 05/15 at 1pm. On 05/16, pt returned to OR for re- exploration, Small bowel resection of ileum, small bowel resection of Yenni limb with gastrojejunostomy, reversal of bypass, primary anastomosis of ileum-ileum, ileum-ileum, and ileum-jejunum, Gastrostomy tube in bypassed stomach, EGD. Pt is in the ICU for monitoring s/p abdominal surgery and pain control with fentanyl gtt. Plan: Neuro: - continue to monitor for mental status changes - pt is AAOx3 at baseline - pt has been extubated and is GCS15 - wean off of fentanyl gtt - dilaudid 1 mg q6 for pain; morphine 1 mg prn breakthrough pain Cardio: - maintain MAP > 65 mmHg - pt has arterial line in place; continue to manage BP as needed Pulm: - maintain spo2 >95% - NC prn - CXR (05/17) shows no significant effusions, or cardiopulmonary disease. - atrovent GI: - POD#3 s/p Exploratory laparotomy, Reduction of internal hernia, Lysis of adhesions, Drainage of abdominal collections, temporary abdominal closure ( fascia left open), EGD. - POD#1 s/p Re-exploration, Small bowel resection of ileum, small bowel resection of Yenni limb with gastrojejunostomy, reversal of bypass, primary anastomosis of ileum-ileum, ileum-ileum, and ileum-jejunum, Gastrostomy tube in bypassed stomach, EGD - wound-vac over midline vertical incision, bilateral min drains, g-tube in place - standard TPN will start tonight - NPO - NGT on low int suction as per surgery - AST/ALT/ALP are downtrending (89/186/89) - protonix for pud ppx Heme: - H/h stable s/p transfusion of total of 4 pRBCs and 4 FFP - PT is downtrending, but remains slightly elevated - heparin sc for vte ppx ID: - pt currently afebrile - leukocytosis untrending (17.1) wth increasing bandemia (23) - continue Aztreonam, Merrem, Metronidazole as per ID - intra-operative peritoneal fluid gram stain prelim is negative - peritoneal fluid culture prelim shows no growth x 2 days - blood cultures x2 shows no growth after 48 hours - urine culture final shows no growth - f/u ID recs Renal: - strict Is and Os - pt is producing about 1.7 mL/kg/hour of urine in the past 24 hours - maintain minimum of 0.5 mL/kg/hr - BUN/Cr is stable and wnl - maintain euvolemia - replete electrolytes as needed Endo: - maintain euglycemia; pt noted to be hypoglycemia - fluids changed to d5 1/2 ns - Hgb A1c is 5.8 - accucheck q6h while on d5 1/2 ns Ppx: protonix for pud; heparin/SCDs for vte ppx Dispo: Pt will remain in ICU Case was reviewed and discussed with attending physician, Dr. Thomas <Alonso Thomas S - Last Filed: 05/17/18 16:48> CCU Objective - Vital Signs / Intake & Output Vital Signs (Last 4 hours): Vital Signs Temp Pulse Resp BP BP Pulse Ox 05/17/18 16:01 99.6 F 113 H 16 100 05/17/18 16:00 141/75 05/17/18 15:56 109 H 11 L 100 05/17/18 15:00 100.2 F H 130 H 16 158/78 H 100 05/17/18 14:00 148/75 05/17/18 13:56 130 H 15 128/75 98 05/17/18 13:00 139/77 05/17/18 12:56 129 H 11 L 125/82 100 Intake and Output (Last 8hrs): Intake & Output 05/17/18 05/17/18 05/17/18 06:59 14:59 22:59 Intake Total 2094.2 1659.8 280.8 Output Total 1370 935 125 Balance 724.2 724.8 155.8 Weight 190 lb Intake: IV 710 211.4 123 Intake, IV Amount 1384.2 1448.4 157.8 Right Distal Port 98.4 252 Internal Jugular Right Forearm 925 925 125 Right Medial Port 262.4 237.1 32.8 Internal Jugular Right Proximal Port 98.4 34.3 Output: Gastric Amount 0 Right Nares 0 Drainage 610 280 Left Lower Abdomen 140 80 Left Upper Abdomen 350 Medial Abdomen 0 Right Lower Abdomen 120 200 Urine 760 655 125 Urine, Voided 760 655 125 - Medications Active Medications: Active Medications Generic Name Dose Route Start Last Admin Trade Name Freq PRN Reason Stop Dose Admin Artificial Tears 1 gm 05/15/18 04:00 05/17/18 15:47 Lacri-Lube OU 1 gm Q4H KATELYN Administration Dextrose 0 ml 05/15/18 08:36 05/16/18 23:40 Dextrose 50% Inj IV 50 ml STAT PRN Administration Hypoglycemia Protocol Protocol Dextrose 0 gm 05/15/18 08:36 Glutose 15 PO ONCE PRN Hypoglycemia Protocol Protocol Glucagon 0 mg 05/15/18 08:36 Glucagen Diagnostic Kit IM STAT PRN Hypoglycemia Protocol Protocol Heparin Sodium (Porcine) 5,000 units 05/17/18 10:00 05/17/18 09:57 Heparin SC 5,000 units Q12 KATELYN Administration Hydromorphone HCl 1 mg 05/17/18 21:00 Dilaudid IVP Q6H KATELYN Fentanyl Citrate 2,500 mcg/ 250 mls @ 16.32 mls/hr 05/14/18 17:45 05/17/18 15 :56 Sodium Chloride IV 2 mcg/kg/hr .[id number] KATELYN 16.32 mls/hr Protocol Titration 2 MCG/KG/HR Dextrose 1,000 mls @ 0 mls/hr 05/15/18 08:36 Dextrose 5% In Water 1000 Ml IV .Q0M PRN Hypoglycemia Protocol Protocol Per Protocol Metronidazole 500 mg in 100 mls @ 100 mls/hr 05/15/18 12:00 05/17/18 11:41 Flagyl IVPB 100 mls/hr Q8H KATELYN Administration Protocol Meropenem 1 gm/ Sodium 100 mls @ 100 mls/hr 05/15/18 11:00 05/17/18 11:01 Chloride IVPB 100 mls/hr Q8H KATELYN Administration Protocol Aztreonam 2 gm/ Sodium 100 mls @ 100 mls/hr 05/15/18 14:00 05/17/18 13:27 Chloride IVPB 100 mls/hr Q8H KATELYN Administration Protocol Dextrose/Sodium Chloride 1,000 mls @ 125 mls/hr 05/17/18 07:30 05/17/18 07:35 Dextrose 5%/0.45% Ns 1000 Ml IV 125 mls/hr .Q8H KATELYN Administration Multivitamins/Vitamin C 10 ml/ 1,011 mls @ 42 mls/hr 05/17/18 18:00 Chromium/Copper/Manganese/ IV 05/18/18 17:59 Zinc 1 ml/ Amino Acids .Q24H ONE Ipratropium [place] 0.5 mg 05/17/18 14:00 05/17/18 14:13 Atrovent IH 0.5 mg RQ6 KATELYN Administration Morphine Sulfate 1 mg 05/17/18 16:00 05/17/18 16:20 Morphine IVP 1 mg Q4 KATELYN Administration Ondansetron HCl 4 mg 05/14/18 02:57 Zofran Inj IVP Q4 PRN Nausea/Vomiting Pantoprazole Sodium 40 mg 05/16/18 10:00 05/17/18 09:13 Protonix Inj IVP 40 mg Q12H KATELYN Administration - Patient Studies Lab Studies: Microbiology Studies 05/15/18 12:51 Blood Culture - Preliminary Blood-Thru Central Line NO GROWTH AFTER 48 HOURS 05/15/18 12:51 Blood Culture - Preliminary Blood-Thru Central Line NO GROWTH AFTER 48 HOURS 05/14/18 16:56 Gram Stain - Final Peritoneal Fluid Body Fluid Culture - Preliminary NO GROWTH AFTER 2 DAYS 05/14/18 20:37 MRSA Culture (Admit) - Final [place] MRSA NOT DETECTED 05/15/18 17:39 Urine Culture - Final Urine No Growth (<1,000 CFU/ML) Lab Studies 05/17/18 05/17/18 05/17/18 Range/Units 13:28 11:38 06:27 WBC (4.8-10.8) K/uL RBC (3.80-5.20) Mil/uL Hgb (11.0-16.0) g/dL Hct (34.0-47.0) % MCV (81.0-99.0) fL MCH (27.0-31.0) pg MCHC (33.0-37.0) g/dL RDW (11.5-14.5) % Plt Count (130-400) K/uL MPV (7.2-11.7) fL Neut % (Auto) (50.0-75.0) % Lymph % (Auto) (20.0-40.0) % [place] % (Auto) (0.0-10.0) % Eos % (Auto) (0.0-4.0) % Baso % (Auto) (0.0-2.0) % Neut # (Auto) (1.8-7.0) K/uL Lymph # (Auto) (1.0-4.3) K/uL [place] # (Auto) (0.0-0.8) K/uL Eos # (Auto) (0.0-0.7) K/uL Baso # (Auto) (0.0-0.2) K/uL Neutrophils % (Manual) (50-75) % Band Neutrophils % (0-2) % Lymphocytes % (Manual) (20-40) % Monocytes % (Manual) (0-10) % Eosinophils % (Manual) (0-4) % Metamyelocytes % (0-0) % Toxic Granulation Dohle Bodies Platelet Estimate (NORMAL) Polychromasia Hypochromasia (manual) Poikilocytosis (manual Anisocytosis (manual) Target Cells PT 15.1 H (9.7-12.2) SECONDS INR 1.4 APTT (21-34) SECONDS Puncture Site A line pCO2 39 (35-45) mm/Hg pO2 148 H (80-100) mm/Hg HCO3 23.0 (21-28) mmol/L ABG pH 7.37 (7.35-7.45) ABG Total CO2 23.7 (22-28) mmol/L ABG O2 Saturation 96.5 (95-98) % ABG Base Excess -2.5 L (-2.0-3.0) mmol/L ABG Hemoglobin 9.2 L (11.7-17.4) g/dL ABG Carboxyhemoglobin 0 L (0.5-1.5) % POC ABG HHb (Measured) 3.5 (0.0-5.0) % ABG Methemoglobin 0.0 (0.0-3.0) % Jonathan Test Na ABG Potassium (3.6-5.2) mmol/L A-a O2 Difference 160.0 mm/Hg Respiratory Index 1.1 Hgb O2 Saturation 96.5 (95.0-98.0) % Sodium (132-148) mmol/l Chloride (98-107) mmol/L Glucose (65-105) mg/dl Lactate (0.7-2.1) mmol/L Vent Mode Mechanical Rate FiO2 50.0 % Tidal Volume PEEP Potassium (3.6-5.2) mmol/L Carbon Dioxide (22-30) mmol/L Anion Gap (10-20) BUN (7-17) mg/dL Creatinine (0.7-1.2) mg/dL Est GFR ( Amer) Est GFR (Non-Af Amer) POC Glucose (mg/dL) 95 (65-110) mg/dL Random Glucose (65-105) mg/dL Hemoglobin A1c (4.2-6.5) % Calcium (8.6-10.4) mg/dl Phosphorus (2.5-4.5) mg/dL Magnesium (1.6-2.3) mg/dL Total Bilirubin (0.2-1.3) mg/dL AST (14-36) U/L ALT (9-52) U/L Alkaline Phosphatase (38-126) U/L Total Protein (6.3-8.3) g/dL Albumin (3.5-5.0) g/dL Globulin (2.2-3.9) gm/dL Albumin/Globulin Ratio (1.0-2.1) Arterial Blood Potassium (3.6-5.2) mmol/L Blood Type Antibody Screen 05/17/18 05/17/18 05/17/18 Range/Units 06:27 06:27 06:27 WBC 17.1 H (4.8-10.8) K/uL RBC 3.62 L (3.80-5.20) Mil/uL Hgb 10.4 L (11.0-16.0) g/dL Hct 31.3 L (34.0-47.0) % MCV 86.4 (81.0-99.0) fL MCH 28.8 (27.0-31.0) pg MCHC 33.4 (33.0-37.0) g/dL RDW 17.0 H (11.5-14.5) % Plt Count 136 (130-400) K/uL MPV 7.4 (7.2-11.7) fL Neut % (Auto) 87.5 H (50.0-75.0) % Lymph % (Auto) 6.7 L (20.0-40.0) % [place] % (Auto) 3.6 (0.0-10.0) % Eos % (Auto) 1.8 (0.0-4.0) % Baso % (Auto) 0.4 (0.0-2.0) % Neut # (Auto) 15.0 H (1.8-7.0) K/uL Lymph # (Auto) 1.2 (1.0-4.3) K/uL [place] # (Auto) 0.6 (0.0-0.8) K/uL Eos # (Auto) 0.3 (0.0-0.7) K/uL Baso # (Auto) 0.1 (0.0-0.2) K/uL Neutrophils % (Manual) 60 (50-75) % Band Neutrophils % 23 H* (0-2) % Lymphocytes % (Manual) 10 L (20-40) % Monocytes % (Manual) 2 (0-10) % Eosinophils % (Manual) 4 (0-4) % Metamyelocytes % 1 H (0-0) % Toxic Granulation Present Dohle Bodies Present Platelet Estimate Normal (NORMAL) Polychromasia Hypochromasia (manual) Poikilocytosis (manual Anisocytosis (manual) Slight Target Cells PT (9.7-12.2) SECONDS INR APTT (21-34) SECONDS Puncture Site pCO2 (35-45) mm/Hg pO2 (80-100) mm/Hg HCO3 (21-28) mmol/L ABG pH (7.35-7.45) ABG Total CO2 (22-28) mmol/L ABG O2 Saturation (95-98) % ABG Base Excess (-2.0-3.0) mmol/L ABG Hemoglobin (11.7-17.4) g/dL ABG Carboxyhemoglobin (0.5-1.5) % POC ABG HHb (Measured) (0.0-5.0) % ABG Methemoglobin (0.0-3.0) % Jonathan Test ABG Potassium (3.6-5.2) mmol/L A-a O2 Difference mm/Hg Respiratory Index Hgb O2 Saturation (95.0-98.0) % Sodium 140 (132-148) mmol/l Chloride 110 H (98-107) mmol/L Glucose (65-105) mg/dl Lactate (0.7-2.1) mmol/L Vent Mode Mechanical Rate FiO2 % Tidal Volume PEEP Potassium 4.0 (3.6-5.2) mmol/L Carbon Dioxide 25 (22-30) mmol/L Anion Gap 10 (10-20) BUN 13 (7-17) mg/dL Creatinine 0.6 L (0.7-1.2) mg/dL Est GFR ( Amer) > 60 Est GFR (Non-Af Amer) > 60 POC Glucose (mg/dL) (65-110) mg/dL Random Glucose 62 L (65-105) mg/dL Hemoglobin A1c 5.7 (4.2-6.5) % Calcium 7.2 L (8.6-10.4) mg/dl Phosphorus 1.9 L (2.5-4.5) mg/dL Magnesium 1.9 (1.6-2.3) mg/dL Total Bilirubin 2.2 H (0.2-1.3) mg/dL AST 89 H D (14-36) U/L ALT 186 H (9-52) U/L Alkaline Phosphatase 89 (38-126) U/L Total Protein 4.3 L (6.3-8.3) g/dL Albumin 2.2 L (3.5-5.0) g/dL Globulin 2.0 L (2.2-3.9) gm/dL Albumin/Globulin Ratio 1.1 (1.0-2.1) Arterial Blood Potassium (3.6-5.2) mmol/L Blood Type Antibody Screen 05/17/18 05/17/18 05/17/18 Range/Units 05:15 04:54 00:11 WBC (4.8-10.8) K/uL RBC (3.80-5.20) Mil/uL Hgb (11.0-16.0) g/dL Hct (34.0-47.0) % MCV (81.0-99.0) fL MCH (27.0-31.0) pg MCHC (33.0-37.0) g/dL RDW (11.5-14.5) % Plt Count (130-400) K/uL MPV (7.2-11.7) fL Neut % (Auto) (50.0-75.0) % Lymph % (Auto) (20.0-40.0) % [place] % (Auto) (0.0-10.0) % Eos % (Auto) (0.0-4.0) % Baso % (Auto) (0.0-2.0) % Neut # (Auto) (1.8-7.0) K/uL Lymph # (Auto) (1.0-4.3) K/uL [place] # (Auto) (0.0-0.8) K/uL Eos # (Auto) (0.0-0.7) K/uL Baso # (Auto) (0.0-0.2) K/uL Neutrophils % (Manual) (50-75) % Band Neutrophils % (0-2) % Lymphocytes % (Manual) (20-40) % Monocytes % (Manual) (0-10) % Eosinophils % (Manual) (0-4) % Metamyelocytes % (0-0) % Toxic Granulation Dohle Bodies Platelet Estimate (NORMAL) Polychromasia Hypochromasia (manual) Poikilocytosis (manual Anisocytosis (manual) Target Cells PT (9.7-12.2) SECONDS INR APTT (21-34) SECONDS Puncture Site [place] pCO2 36 (35-45) mm/Hg pO2 171 H (80-100) mm/Hg HCO3 23.0 (21-28) mmol/L ABG pH 7.39 (7.35-7.45) ABG Total CO2 22.9 (22-28) mmol/L ABG O2 Saturation 96.5 (95-98) % ABG Base Excess -2.6 L (-2.0-3.0) mmol/L ABG Hemoglobin (11.7-17.4) g/dL ABG Carboxyhemoglobin (0.5-1.5) % POC ABG HHb (Measured) (0.0-5.0) % ABG Methemoglobin (0.0-3.0) % Jonathan Test Na ABG Potassium 3.8 (3.6-5.2) mmol/L A-a O2 Difference 141.0 mm/Hg Respiratory Index 0.8 Hgb O2 Saturation (95.0-98.0) % Sodium 139.0 (132-148) mmol/l Chloride 115.0 H (98-107) mmol/L Glucose 76 (65-105) mg/dl Lactate 0.9 (0.7-2.1) mmol/L Vent Mode Prvc Mechanical Rate 20 FiO2 50.0 % Tidal Volume 500 PEEP 5 Potassium (3.6-5.2) mmol/L Carbon Dioxide (22-30) mmol/L Anion Gap (10-20) BUN (7-17) mg/dL Creatinine (0.7-1.2) mg/dL Est GFR ( Amer) Est GFR (Non-Af Amer) POC Glucose (mg/dL) 78 107 (65-110) mg/dL Random Glucose (65-105) mg/dL Hemoglobin A1c (4.2-6.5) % Calcium (8.6-10.4) mg/dl Phosphorus (2.5-4.5) mg/dL Magnesium (1.6-2.3) mg/dL Total Bilirubin (0.2-1.3) mg/dL AST (14-36) U/L ALT (9-52) U/L Alkaline Phosphatase (38-126) U/L Total Protein (6.3-8.3) g/dL Albumin (3.5-5.0) g/dL Globulin (2.2-3.9) gm/dL Albumin/Globulin Ratio (1.0-2.1) Arterial Blood Potassium 3.8 (3.6-5.2) mmol/L Blood Type Antibody Screen 05/16/18 05/16/18 05/16/18 Range/Units 23:39 23:35 18:57 WBC (4.8-10.8) K/uL RBC (3.80-5.20) Mil/uL Hgb (11.0-16.0) g/dL Hct (34.0-47.0) % MCV (81.0-99.0) fL MCH (27.0-31.0) pg MCHC (33.0-37.0) g/dL RDW (11.5-14.5) % Plt Count (130-400) K/uL MPV (7.2-11.7) fL Neut % (Auto) (50.0-75.0) % Lymph % (Auto) (20.0-40.0) % [place] % (Auto) (0.0-10.0) % Eos % (Auto) (0.0-4.0) % Baso % (Auto) (0.0-2.0) % Neut # (Auto) (1.8-7.0) K/uL Lymph # (Auto) (1.0-4.3) K/uL [place] # (Auto) (0.0-0.8) K/uL Eos # (Auto) (0.0-0.7) K/uL Baso # (Auto) (0.0-0.2) K/uL Neutrophils % (Manual) (50-75) % Band Neutrophils % (0-2) % Lymphocytes % (Manual) (20-40) % Monocytes % (Manual) (0-10) % Eosinophils % (Manual) (0-4) % Metamyelocytes % (0-0) % Toxic Granulation Dohle Bodies Platelet Estimate (NORMAL) Polychromasia Hypochromasia (manual) Poikilocytosis (manual Anisocytosis (manual) Target Cells PT (9.7-12.2) SECONDS INR APTT (21-34) SECONDS Puncture Site pCO2 (35-45) mm/Hg pO2 (80-100) mm/Hg HCO3 (21-28) mmol/L ABG pH (7.35-7.45) ABG Total CO2 (22-28) mmol/L ABG O2 Saturation (95-98) % ABG Base Excess (-2.0-3.0) mmol/L ABG Hemoglobin (11.7-17.4) g/dL ABG Carboxyhemoglobin (0.5-1.5) % POC ABG HHb (Measured) (0.0-5.0) % ABG Methemoglobin (0.0-3.0) % Jonathan Test ABG Potassium (3.6-5.2) mmol/L A-a O2 Difference mm/Hg Respiratory Index Hgb O2 Saturation (95.0-98.0) % Sodium 139 (132-148) mmol/l Chloride 113 H (98-107) mmol/L Glucose (65-105) mg/dl Lactate (0.7-2.1) mmol/L Vent Mode Mechanical Rate FiO2 % Tidal Volume PEEP Potassium 4.7 (3.6-5.2) mmol/L Carbon Dioxide 21 L (22-30) mmol/L Anion Gap 11 (10-20) BUN 17 (7-17) mg/dL Creatinine 0.6 L (0.7-1.2) mg/dL Est GFR ( Amer) > 60 Est GFR (Non-Af Amer) > 60 POC Glucose (mg/dL) 68 54 L (65-110) mg/dL Random Glucose 76 (65-105) mg/dL Hemoglobin A1c (4.2-6.5) % Calcium 7.2 L (8.6-10.4) mg/dl Phosphorus (2.5-4.5) mg/dL Magnesium (1.6-2.3) mg/dL Total Bilirubin 2.9 H (0.2-1.3) mg/dL AST 155 H D (14-36) U/L ALT 219 H D (9-52) U/L Alkaline Phosphatase 75 (38-126) U/L Total Protein 4.4 L (6.3-8.3) g/dL Albumin 2.4 L (3.5-5.0) g/dL Globulin 2.0 L (2.2-3.9) gm/dL Albumin/Globulin Ratio 1.2 (1.0-2.1) Arterial Blood Potassium (3.6-5.2) mmol/L Blood Type Antibody Screen 05/16/18 05/16/18 05/16/18 Range/Units 18:57 18:56 18:28 WBC 14.3 H (4.8-10.8) K/uL RBC 3.91 (3.80-5.20) Mil/uL Hgb 11.2 D (11.0-16.0) g/dL Hct 33.7 L (34.0-47.0) % MCV 86.2 (81.0-99.0) fL MCH 28.6 (27.0-31.0) pg MCHC 33.2 (33.0-37.0) g/dL RDW 16.7 H (11.5-14.5) % Plt Count 132 (130-400) K/uL MPV 7.2 (7.2-11.7) fL Neut % (Auto) 92.7 H (50.0-75.0) % Lymph % (Auto) 3.7 L (20.0-40.0) % [place] % (Auto) 2.5 (0.0-10.0) % Eos % (Auto) 0.9 (0.0-4.0) % Baso % (Auto) 0.2 (0.0-2.0) % Neut # (Auto) 13.3 H (1.8-7.0) K/uL Lymph # (Auto) 0.5 L (1.0-4.3) K/uL [place] # (Auto) 0.4 (0.0-0.8) K/uL Eos # (Auto) 0.1 (0.0-0.7) K/uL Baso # (Auto) 0.0 (0.0-0.2) K/uL Neutrophils % (Manual) 71 (50-75) % Band Neutrophils % 17 H* (0-2) % Lymphocytes % (Manual) 4 L (20-40) % Monocytes % (Manual) 5 (0-10) % Eosinophils % (Manual) 3 (0-4) % Metamyelocytes % (0-0) % Toxic Granulation Dohle Bodies Platelet Estimate Normal (NORMAL) Polychromasia Slight Hypochromasia (manual) Slight Poikilocytosis (manual Slight Anisocytosis (manual) Slight Target Cells Slight PT 14.6 H (9.7-12.2) SECONDS INR 1.3 APTT 33 (21-34) SECONDS Puncture Site [place] pCO2 44 (35-45) mm/Hg pO2 148 H (80-100) mm/Hg HCO3 21.8 (21-28) mmol/L ABG pH 7.31 L (7.35-7.45) ABG Total CO2 23.6 (22-28) mmol/L ABG O2 Saturation 96.3 (95-98) % ABG Base Excess -4.1 L (-2.0-3.0) mmol/L ABG Hemoglobin (11.7-17.4) g/dL ABG Carboxyhemoglobin (0.5-1.5) % POC ABG HHb (Measured) (0.0-5.0) % ABG Methemoglobin (0.0-3.0) % Jonathan Test Na ABG Potassium 4.8 (3.6-5.2) mmol/L A-a O2 Difference 154.0 mm/Hg Respiratory Index 1.0 Hgb O2 Saturation (95.0-98.0) % Sodium 138.0 (132-148) mmol/l Chloride 113.0 H (98-107) mmol/L Glucose 79 (65-105) mg/dl Lactate 1.6 (0.7-2.1) mmol/L Vent Mode Prvc Mechanical Rate 20 FiO2 50.0 % Tidal Volume 500 PEEP 5 Potassium (3.6-5.2) mmol/L Carbon Dioxide (22-30) mmol/L Anion Gap (10-20) BUN (7-17) mg/dL Creatinine (0.7-1.2) mg/dL Est GFR ( Amer) Est GFR (Non-Af Amer) POC Glucose (mg/dL) (65-110) mg/dL Random Glucose (65-105) mg/dL Hemoglobin A1c (4.2-6.5) % Calcium (8.6-10.4) mg/dl Phosphorus (2.5-4.5) mg/dL Magnesium (1.6-2.3) mg/dL Total Bilirubin (0.2-1.3) mg/dL AST (14-36) U/L ALT (9-52) U/L Alkaline Phosphatase (38-126) U/L Total Protein (6.3-8.3) g/dL Albumin (3.5-5.0) g/dL Globulin (2.2-3.9) gm/dL Albumin/Globulin Ratio (1.0-2.1) Arterial Blood Potassium 4.8 (3.6-5.2) mmol/L Blood Type Antibody Screen 05/16/18 05/16/18 05/16/18 Range/Units 18:04 18:02 05:31 WBC (4.8-10.8) K/uL RBC (3.80-5.20) Mil/uL Hgb (11.0-16.0) g/dL Hct (34.0-47.0) % MCV (81.0-99.0) fL MCH (27.0-31.0) pg MCHC (33.0-37.0) g/dL RDW (11.5-14.5) % Plt Count (130-400) K/uL MPV (7.2-11.7) fL Neut % (Auto) (50.0-75.0) % Lymph % (Auto) (20.0-40.0) % [place] % (Auto) (0.0-10.0) % Eos % (Auto) (0.0-4.0) % Baso % (Auto) (0.0-2.0) % Neut # (Auto) (1.8-7.0) K/uL Lymph # (Auto) (1.0-4.3) K/uL [place] # (Auto) (0.0-0.8) K/uL Eos # (Auto) (0.0-0.7) K/uL Baso # (Auto) (0.0-0.2) K/uL Neutrophils % (Manual) (50-75) % Band Neutrophils % (0-2) % Lymphocytes % (Manual) (20-40) % Monocytes % (Manual) (0-10) % Eosinophils % (Manual) (0-4) % Metamyelocytes % (0-0) % Toxic Granulation Dohle Bodies Platelet Estimate (NORMAL) Polychromasia Hypochromasia (manual) Poikilocytosis (manual Anisocytosis (manual) Target Cells PT (9.7-12.2) SECONDS INR APTT (21-34) SECONDS Puncture Site pCO2 (35-45) mm/Hg pO2 (80-100) mm/Hg HCO3 (21-28) mmol/L ABG pH (7.35-7.45) ABG Total CO2 (22-28) mmol/L ABG O2 Saturation (95-98) % ABG Base Excess (-2.0-3.0) mmol/L ABG Hemoglobin (11.7-17.4) g/dL ABG Carboxyhemoglobin (0.5-1.5) % POC ABG HHb (Measured) (0.0-5.0) % ABG Methemoglobin (0.0-3.0) % Jonathan Test ABG Potassium (3.6-5.2) mmol/L A-a O2 Difference mm/Hg Respiratory Index Hgb O2 Saturation (95.0-98.0) % Sodium (132-148) mmol/l Chloride (98-107) mmol/L Glucose (65-105) mg/dl Lactate (0.7-2.1) mmol/L Vent Mode Mechanical Rate FiO2 % Tidal Volume PEEP Potassium (3.6-5.2) mmol/L Carbon Dioxide (22-30) mmol/L Anion Gap (10-20) BUN (7-17) mg/dL Creatinine (0.7-1.2) mg/dL Est GFR ( Amer) Est GFR (Non-Af Amer) POC Glucose (mg/dL) 76 67 97 (65-110) mg/dL Random Glucose (65-105) mg/dL Hemoglobin A1c (4.2-6.5) % Calcium (8.6-10.4) mg/dl Phosphorus (2.5-4.5) mg/dL Magnesium (1.6-2.3) mg/dL Total Bilirubin (0.2-1.3) mg/dL AST (14-36) U/L ALT (9-52) U/L Alkaline Phosphatase (38-126) U/L Total Protein (6.3-8.3) g/dL Albumin (3.5-5.0) g/dL Globulin (2.2-3.9) gm/dL Albumin/Globulin Ratio (1.0-2.1) Arterial Blood Potassium (3.6-5.2) mmol/L Blood Type Antibody Screen 05/14/18 Range/Units 12:56 WBC (4.8-10.8) K/uL RBC (3.80-5.20) Mil/uL Hgb (11.0-16.0) g/dL Hct (34.0-47.0) % MCV (81.0-99.0) fL MCH (27.0-31.0) pg MCHC (33.0-37.0) g/dL RDW (11.5-14.5) % Plt Count (130-400) K/uL MPV (7.2-11.7) fL Neut % (Auto) (50.0-75.0) % Lymph % (Auto) (20.0-40.0) % [place] % (Auto) (0.0-10.0) % Eos % (Auto) (0.0-4.0) % Baso % (Auto) (0.0-2.0) % Neut # (Auto) (1.8-7.0) K/uL Lymph # (Auto) (1.0-4.3) K/uL [place] # (Auto) (0.0-0.8) K/uL Eos # (Auto) (0.0-0.7) K/uL Baso # (Auto) (0.0-0.2) K/uL Neutrophils % (Manual) (50-75) % Band Neutrophils % (0-2) % Lymphocytes % (Manual) (20-40) % Monocytes % (Manual) (0-10) % Eosinophils % (Manual) (0-4) % Metamyelocytes % (0-0) % Toxic Granulation Dohle Bodies Platelet Estimate (NORMAL) Polychromasia Hypochromasia (manual) Poikilocytosis (manual Anisocytosis (manual) Target Cells PT (9.7-12.2) SECONDS INR APTT (21-34) SECONDS Puncture Site pCO2 (35-45) mm/Hg pO2 (80-100) mm/Hg HCO3 (21-28) mmol/L ABG pH (7.35-7.45) ABG Total CO2 (22-28) mmol/L ABG O2 Saturation (95-98) % ABG Base Excess (-2.0-3.0) mmol/L ABG Hemoglobin (11.7-17.4) g/dL ABG Carboxyhemoglobin (0.5-1.5) % POC ABG HHb (Measured) (0.0-5.0) % ABG Methemoglobin (0.0-3.0) % Jonathan Test ABG Potassium (3.6-5.2) mmol/L A-a O2 Difference mm/Hg Respiratory Index Hgb O2 Saturation (95.0-98.0) % Sodium (132-148) mmol/l Chloride (98-107) mmol/L Glucose (65-105) mg/dl Lactate (0.7-2.1) mmol/L Vent Mode Mechanical Rate FiO2 % Tidal Volume PEEP Potassium (3.6-5.2) mmol/L Carbon Dioxide (22-30) mmol/L Anion Gap (10-20) BUN (7-17) mg/dL Creatinine (0.7-1.2) mg/dL Est GFR ( Amer) Est GFR (Non-Af Amer) POC Glucose (mg/dL) (65-110) mg/dL Random Glucose (65-105) mg/dL Hemoglobin A1c (4.2-6.5) % Calcium (8.6-10.4) mg/dl Phosphorus (2.5-4.5) mg/dL Magnesium (1.6-2.3) mg/dL Total Bilirubin (0.2-1.3) mg/dL AST (14-36) U/L ALT (9-52) U/L Alkaline Phosphatase (38-126) U/L Total Protein (6.3-8.3) g/dL Albumin (3.5-5.0) g/dL Globulin (2.2-3.9) gm/dL Albumin/Globulin Ratio (1.0-2.1) Arterial Blood Potassium (3.6-5.2) mmol/L Blood Type O POSITIVE Antibody Screen Negative Laboratory Results - last 24 hr 05/14/18 05/16/18 05/16/18 12:56 05:31 18:02 WBC RBC Hgb Hct MCV MCH MCHC RDW Plt Count MPV Neut % (Auto) Lymph % (Auto) [place] % (Auto) Eos % (Auto) Baso % (Auto) Neut # (Auto) Lymph # (Auto) [place] # (Auto) Eos # (Auto) Baso # (Auto) Neutrophils % (Manual) Band Neutrophils % Lymphocytes % (Manual) Monocytes % (Manual) Eosinophils % (Manual) Metamyelocytes % Toxic Granulation Dohle Bodies Platelet Estimate Polychromasia Hypochromasia (manual) Poikilocytosis (manual Anisocytosis (manual) Target Cells PT INR APTT Puncture Site pCO2 pO2 HCO3 ABG pH ABG Total CO2 ABG O2 Saturation ABG Base Excess ABG Hemoglobin ABG Carboxyhemoglobin POC ABG HHb (Measured) ABG Methemoglobin Jonathan Test ABG Potassium A-a O2 Difference Respiratory Index Hgb O2 Saturation Sodium Chloride Glucose Lactate Vent Mode Mechanical Rate FiO2 Tidal Volume PEEP Potassium Carbon Dioxide Anion Gap BUN Creatinine Est GFR ( Amer) Est GFR (Non-Af Amer) POC Glucose (mg/dL) 97 67 Random Glucose Hemoglobin A1c Calcium Phosphorus Magnesium Total Bilirubin AST ALT Alkaline Phosphatase Total Protein Albumin Globulin Albumin/Globulin Ratio Arterial Blood Potassium Blood Type O POSITIVE Antibody Screen Negative 05/16/18 05/16/18 05/16/18 18:04 18:28 18:56 WBC RBC Hgb Hct MCV MCH MCHC RDW Plt Count MPV Neut % (Auto) Lymph % (Auto) [place] % (Auto) Eos % (Auto) Baso % (Auto) Neut # (Auto) Lymph # (Auto) [place] # (Auto) Eos # (Auto) Baso # (Auto) Neutrophils % (Manual) Band Neutrophils % Lymphocytes % (Manual) Monocytes % (Manual) Eosinophils % (Manual) Metamyelocytes % Toxic Granulation Dohle Bodies Platelet Estimate Polychromasia Hypochromasia (manual) Poikilocytosis (manual Anisocytosis (manual) Target Cells PT 14.6 H INR 1.3 APTT 33 Puncture Site [place] pCO2 44 pO2 148 H HCO3 21.8 ABG pH 7.31 L ABG Total CO2 23.6 ABG O2 Saturation 96.3 ABG Base Excess -4.1 L ABG Hemoglobin ABG Carboxyhemoglobin POC ABG HHb (Measured) ABG Methemoglobin Jonathan Test Na ABG Potassium 4.8 A-a O2 Difference 154.0 Respiratory Index 1.0 Hgb O2 Saturation Sodium 138.0 Chloride 113.0 H Glucose 79 Lactate 1.6 Vent Mode Prvc Mechanical Rate 20 FiO2 50.0 Tidal Volume 500 PEEP 5 Potassium Carbon Dioxide Anion Gap BUN Creatinine Est GFR ( Amer) Est GFR (Non-Af Amer) POC Glucose (mg/dL) 76 Random Glucose Hemoglobin A1c Calcium Phosphorus Magnesium Total Bilirubin AST ALT Alkaline Phosphatase Total Protein Albumin Globulin Albumin/Globulin Ratio Arterial Blood Potassium 4.8 Blood Type Antibody Screen 05/16/18 05/16/18 05/16/18 18:57 18:57 23:35 WBC 14.3 H RBC 3.91 Hgb 11.2 D Hct 33.7 L MCV 86.2 MCH 28.6 MCHC 33.2 RDW 16.7 H Plt Count 132 MPV 7.2 Neut % (Auto) 92.7 H Lymph % (Auto) 3.7 L [place] % (Auto) 2.5 Eos % (Auto) 0.9 Baso % (Auto) 0.2 Neut # (Auto) 13.3 H Lymph # (Auto) 0.5 L [place] # (Auto) 0.4 Eos # (Auto) 0.1 Baso # (Auto) 0.0 Neutrophils % (Manual) 71 Band Neutrophils % 17 H* Lymphocytes % (Manual) 4 L Monocytes % (Manual) 5 Eosinophils % (Manual) 3 Metamyelocytes % Toxic Granulation Dohle Bodies Platelet Estimate Normal Polychromasia Slight Hypochromasia (manual) Slight Poikilocytosis (manual Slight Anisocytosis (manual) Slight Target Cells Slight PT INR APTT Puncture Site pCO2 pO2 HCO3 ABG pH ABG Total CO2 ABG O2 Saturation ABG Base Excess ABG Hemoglobin ABG Carboxyhemoglobin POC ABG HHb (Measured) ABG Methemoglobin Jonathan Test ABG Potassium A-a O2 Difference Respiratory Index Hgb O2 Saturation Sodium 139 Chloride 113 H Glucose Lactate Vent Mode Mechanical Rate FiO2 Tidal Volume PEEP Potassium 4.7 Carbon Dioxide 21 L Anion Gap 11 BUN 17 Creatinine 0.6 L Est GFR ( Amer) > 60 Est GFR (Non-Af Amer) > 60 POC Glucose (mg/dL) 54 L Random Glucose 76 Hemoglobin A1c Calcium 7.2 L Phosphorus Magnesium Total Bilirubin 2.9 H AST 155 H D ALT 219 H D Alkaline Phosphatase 75 Total Protein 4.4 L Albumin 2.4 L Globulin 2.0 L Albumin/Globulin Ratio 1.2 Arterial Blood Potassium Blood Type Antibody Screen 05/16/18 05/17/18 05/17/18 23:39 00:11 04:54 WBC RBC Hgb Hct MCV MCH MCHC RDW Plt Count MPV Neut % (Auto) Lymph % (Auto) [place] % (Auto) Eos % (Auto) Baso % (Auto) Neut # (Auto) Lymph # (Auto) [place] # (Auto) Eos # (Auto) Baso # (Auto) Neutrophils % (Manual) Band Neutrophils % Lymphocytes % (Manual) Monocytes % (Manual) Eosinophils % (Manual) Metamyelocytes % Toxic Granulation Dohle Bodies Platelet Estimate Polychromasia Hypochromasia (manual) Poikilocytosis (manual Anisocytosis (manual) Target Cells PT INR APTT Puncture Site pCO2 pO2 HCO3 ABG pH ABG Total CO2 ABG O2 Saturation ABG Base Excess ABG Hemoglobin ABG Carboxyhemoglobin POC ABG HHb (Measured) ABG Methemoglobin Jonathan Test ABG Potassium A-a O2 Difference Respiratory Index Hgb O2 Saturation Sodium Chloride Glucose Lactate Vent Mode Mechanical Rate FiO2 Tidal Volume PEEP Potassium Carbon Dioxide Anion Gap BUN Creatinine Est GFR ( Amer) Est GFR (Non-Af Amer) POC Glucose (mg/dL) 68 107 78 Random Glucose Hemoglobin A1c Calcium Phosphorus Magnesium Total Bilirubin AST ALT Alkaline Phosphatase Total Protein Albumin Globulin Albumin/Globulin Ratio Arterial Blood Potassium Blood Type Antibody Screen 05/17/18 05/17/18 05/17/18 05:15 06:27 06:27 WBC 17.1 H RBC 3.62 L Hgb 10.4 L Hct 31.3 L MCV 86.4 MCH 28.8 MCHC 33.4 RDW 17.0 H Plt Count 136 MPV 7.4 Neut % (Auto) 87.5 H Lymph % (Auto) 6.7 L [place] % (Auto) 3.6 Eos % (Auto) 1.8 Baso % (Auto) 0.4 Neut # (Auto) 15.0 H Lymph # (Auto) 1.2 [place] # (Auto) 0.6 Eos # (Auto) 0.3 Baso # (Auto) 0.1 Neutrophils % (Manual) 60 Band Neutrophils % 23 H* Lymphocytes % (Manual) 10 L Monocytes % (Manual) 2 Eosinophils % (Manual) 4 Metamyelocytes % 1 H Toxic Granulation Present Dohle Bodies Present Platelet Estimate Normal Polychromasia Hypochromasia (manual) Poikilocytosis (manual Anisocytosis (manual) Slight Target Cells PT INR APTT Puncture Site [place] pCO2 36 pO2 171 H HCO3 23.0 ABG pH 7.39 ABG Total CO2 22.9 ABG O2 Saturation 96.5 ABG Base Excess -2.6 L ABG Hemoglobin ABG Carboxyhemoglobin POC ABG HHb (Measured) ABG Methemoglobin Jonathan Test Na ABG Potassium 3.8 A-a O2 Difference 141.0 Respiratory Index 0.8 Hgb O2 Saturation Sodium 139.0 Chloride 115.0 H Glucose 76 Lactate 0.9 Vent Mode Prvc Mechanical Rate 20 FiO2 50.0 Tidal Volume 500 PEEP 5 Potassium Carbon Dioxide Anion Gap BUN Creatinine Est GFR ( Amer) Est GFR (Non-Af Amer) POC Glucose (mg/dL) Random Glucose Hemoglobin A1c 5.7 Calcium Phosphorus Magnesium Total Bilirubin AST ALT Alkaline Phosphatase Total Protein Albumin Globulin Albumin/Globulin Ratio Arterial Blood Potassium 3.8 Blood Type Antibody Screen 05/17/18 05/17/18 05/17/18 06:27 06:27 11:38 WBC RBC Hgb Hct MCV MCH MCHC RDW Plt Count MPV Neut % (Auto) Lymph % (Auto) [place] % (Auto) Eos % (Auto) Baso % (Auto) Neut # (Auto) Lymph # (Auto) [place] # (Auto) Eos # (Auto) Baso # (Auto) Neutrophils % (Manual) Band Neutrophils % Lymphocytes % (Manual) Monocytes % (Manual) Eosinophils % (Manual) Metamyelocytes % Toxic Granulation Dohle Bodies Platelet Estimate Polychromasia Hypochromasia (manual) Poikilocytosis (manual Anisocytosis (manual) Target Cells PT 15.1 H INR 1.4 APTT Puncture Site pCO2 pO2 HCO3 ABG pH ABG Total CO2 ABG O2 Saturation ABG Base Excess ABG Hemoglobin ABG Carboxyhemoglobin POC ABG HHb (Measured) ABG Methemoglobin Jonathan Test ABG Potassium A-a O2 Difference Respiratory Index Hgb O2 Saturation Sodium 140 Chloride 110 H Glucose Lactate Vent Mode Mechanical Rate FiO2 Tidal Volume PEEP Potassium 4.0 Carbon Dioxide 25 Anion Gap 10 BUN 13 Creatinine 0.6 L Est GFR ( Amer) > 60 Est GFR (Non-Af Amer) > 60 POC Glucose (mg/dL) 95 Random Glucose 62 L Hemoglobin A1c Calcium 7.2 L Phosphorus 1.9 L Magnesium 1.9 Total Bilirubin 2.2 H AST 89 H D ALT 186 H Alkaline Phosphatase 89 Total Protein 4.3 L Albumin 2.2 L Globulin 2.0 L Albumin/Globulin Ratio 1.1 Arterial Blood Potassium Blood Type Antibody Screen 05/17/18 13:28 WBC RBC Hgb Hct MCV MCH MCHC RDW Plt Count MPV Neut % (Auto) Lymph % (Auto) [place] % (Auto) Eos % (Auto) Baso % (Auto) Neut # (Auto) Lymph # (Auto) [place] # (Auto) Eos # (Auto) Baso # (Auto) Neutrophils % (Manual) Band Neutrophils % Lymphocytes % (Manual) Monocytes % (Manual) Eosinophils % (Manual) Metamyelocytes % Toxic Granulation Dohle Bodies Platelet Estimate Polychromasia Hypochromasia (manual) Poikilocytosis (manual Anisocytosis (manual) Target Cells PT INR APTT Puncture Site A line pCO2 39 pO2 148 H HCO3 23.0 ABG pH 7.37 ABG Total CO2 23.7 ABG O2 Saturation 96.5 ABG Base Excess -2.5 L ABG Hemoglobin 9.2 L ABG Carboxyhemoglobin 0 L POC ABG HHb (Measured) 3.5 ABG Methemoglobin 0.0 Jonathan Test Na ABG Potassium A-a O2 Difference 160.0 Respiratory Index 1.1 Hgb O2 Saturation 96.5 Sodium Chloride Glucose Lactate Vent Mode Mechanical Rate FiO2 50.0 Tidal Volume PEEP Potassium Carbon Dioxide Anion Gap BUN Creatinine Est GFR ( Amer) Est GFR (Non-Af Amer) POC Glucose (mg/dL) Random Glucose Hemoglobin A1c Calcium Phosphorus Magnesium Total Bilirubin AST ALT Alkaline Phosphatase Total Protein Albumin Globulin Albumin/Globulin Ratio Arterial Blood Potassium Blood Type Antibody Screen Critical Care Progress Note - Nutrition Nutrition: Nutrition Category Date Time Status NPO Diet [DIET] Diets 05/14/18 Breakfast Active Attending/Attestation - Attestation I have personally seen and examined this patient.: Yes I have fully participated in the care of the patient.: Yes I have reviewed all pertinent clinical information: Yes Notes (Text): 05/17/18 16:44 Patient seen and examined Chart reviewed Patient extubated after weaning trial off sedation. taper off Fentanyl drip patient started on TPN Continue antibiotics Good urine output Follow-up lytes and H&H
--- NOTE | 2018-05-17 08:41 | CP.PCM.PN ---
Subjective - Date & Time of Evaluation Date of Evaluation: 05/17/18 Time of Evaluation: 08:39 - Subjective Subjective: F/u r bleeding. Above noted. SB gangrene. s/p surgery yest. Decreased bleeding. No SZ, cough, HURT, hematuria, hemoptysis, tremors, rigors Objective - Vital Signs/Intake and Output Vital Signs (last 24 hours): Temp Pulse Resp BP Pulse Ox 98.5 F 124 H 20 158/84 H 100 05/17/18 04:00 05/17/18 07:00 05/17/18 04:00 05/17/18 07:00 05/17/18 07:00 Intake and Output: 05/17/18 05/17/18 06:59 18:59 Intake Total 2713.7 234.9 Output Total 1870 100 Balance 843.7 134.9 - Medications Medications: Current Medications Artificial Tears (Lacri-Lube) 1 gm OU Q4H KATELYN Last Admin: 05/17/18 07:37 Dose: 1 gm Dextrose (Dextrose 50% Inj) 0 ml IV STAT PRN; Protocol PRN Reason: Hypoglycemia Protocol Last Admin: 05/16/18 23:40 Dose: 50 ml Dextrose (Glutose 15) 0 gm PO ONCE PRN; Protocol PRN Reason: Hypoglycemia Protocol Glucagon (Glucagen Diagnostic Kit) 0 mg IM STAT PRN; Protocol PRN Reason: Hypoglycemia Protocol Heparin Sodium (Porcine) (Heparin) 5,000 units SC Q12 KATELYN Cisatracurium Besylate 100 mg/ (Dextrose) 250 mls @ 36.74 mls/hr IV .Q6H49M KATELYN ; 3 MCG/KG/MIN PRN Reason: Protocol Last Titration: 05/17/18 06:30 Dose: 0 mcg/kg/min, 0 mls/hr Fentanyl Citrate 2,500 mcg/ (Sodium Chloride) 250 mls @ 16.32 mls/hr IV .[id number] KATELYN; 2 MCG/KG/HR PRN Reason: Protocol Last Titration: 05/17/18 07:30 Dose: 3.5 mcg/kg/hr, 28.57 mls/hr Propofol (Diprivan) 1,000 mg in 100 mls @ 2.449 mls/hr IV .Q24H PRN; Protocol; 5 MCG/KG/MIN PRN Reason: TITRATE PER MD ORDER Last Titration: 05/17/18 07:52 Dose: 10 mcg/kg/min, 4.9 mls/hr Dextrose (Dextrose 5% In Water 1000 Ml) 1,000 mls @ 0 mls/hr IV .Q0M PRN; Protocol; Per Protocol PRN Reason: Hypoglycemia Protocol Metronidazole (Flagyl) 500 mg in 100 mls @ 100 mls/hr IVPB Q8H KATELYN PRN Reason: Protocol Last Admin: 05/17/18 03:00 Dose: 100 mls/hr Meropenem 1 gm/ Sodium (Chloride) 100 mls @ 100 mls/hr IVPB Q8H KATELYN PRN Reason: Protocol Last Admin: 05/17/18 02:00 Dose: 100 mls/hr Aztreonam 2 gm/ Sodium (Chloride) 100 mls @ 100 mls/hr IVPB Q8H KATELYN PRN Reason: Protocol Last Admin: 05/17/18 05:07 Dose: 100 mls/hr Sodium Chloride (Sodium Chloride 0.9%) 1,000 mls @ 125 mls/hr IV .Q8H [facility] Last Admin: 05/17/18 06:14 Dose: Not Given Potassium Phosphate 15 mmole/ (Dextrose) 255 mls @ 42.5 mls/hr IVPB ONCE ONE Stop: 05/17/18 13:59 Last Admin: 05/17/18 08:23 Dose: 42.5 mls/hr Dextrose/Sodium Chloride (Dextrose 5%/0.45% Ns 1000 Ml) 1,000 mls @ 125 mls/hr IV .Q8H [facility] Last Admin: 05/17/18 07:35 Dose: 125 mls/hr Ondansetron HCl (Zofran Inj) 4 mg IVP Q4 PRN PRN Reason: Nausea/Vomiting Pantoprazole Sodium (Protonix Inj) 40 mg IVP Q12H [facility] Last Admin: 05/17/18 00:00 Dose: 40 mg - Labs Labs: 05/17/18 06:27 05/17/18 06:27 PT 15.1 SECONDS (9.7-12.2) H 05/17/18 06:27 INR 1.4 05/17/18 06:27 APTT 33 SECONDS (21-34) 05/16/18 18:56 - Constitutional Appears: Agitated - Respiratory Exam Respiratory Exam: Clear to Ausculation Bilateral - Cardiovascular Exam Cardiovascular Exam: Tachycardia - GI/Abdominal Exam GI & Abdominal Exam: Tenderness. absent: Normal Bowel Sounds Additional comments: softer - Neurological Exam Neurological Exam: Awake Assessment and Plan (1) Rectal bleeding Assessment & Plan: Sb gangrene Status: Acute (2) Leucocytosis Assessment & Plan: Improving Status: Acute (3) Small bowel obstruction due to adhesions Assessment & Plan: Further treatment as per Surgeons. Status: Acute (4) Abdominal pain Status: Acute (5) Asthma Status: Acute (6) HTN (hypertension) Status: Acute (7) Obesity (BMI 30-39.9) Status: Acute
--- NOTE | 2018-05-17 10:30 | RAD ---
Date of service: 05/17/2018 HISTORY: intubated COMPARISON: Portable chest 05/16/2018. FINDINGS: Endotracheal tube is unchanged in position as well as right central venous line. Nasogastric tube is been retracted terminating in the distal esophagus. Advancing the NG tube into the stomach is advised follow-up by confirmation radiography. LUNGS: Trace atelectasis at the left base with none on the right. PLEURA: No significant pleural effusion identified, no pneumothorax apparent. CARDIOVASCULAR: Normal. OSSEOUS STRUCTURES: No significant abnormalities. VISUALIZED UPPER ABDOMEN: Normal. OTHER FINDINGS: None. IMPRESSION: NG tube terminates in the esophagus. Advancing the catheter into the stomach is advised as discussed above follow-up by confirmation radiography. Endotracheal tube and central venous line are unchanged in position. Limited left basilar atelectasis noted. Discussed with ICU Nurse Mendy with written down and read back verification 05/17/2018 10:15 a.m..
[2018-05-17 13:32] LABS: ARTERIAL BLOOD GAS HEMOGLOBIN 9.2 g/dL (11.7-17.4); ARTERIAL BLOOD GAS O2 SAT 96.5 % (95-98); ARTERIAL BLOOD GAS PCO2 39 mm/Hg (35-45); ARTERIAL BLOOD GAS PH 7.37 (7.35-7.45); ARTERIAL BLOOD GAS PO2 148 mm/Hg (80-100); ARTERIAL BLOOD GAS TCO2 23.7 mmol/L (22-28)
[2018-05-17] MEDS: Ipratropium 0.02% Inhal Soln (0.5 mg/2.5 ml) UD IH SCH ×2 (14:13→19:39)
[2018-05-17] MEDS ORDERED: Metoprolol 1 mg/ml Inj IVP ONE (15:26)
[2018-05-17] MEDS ORDERED: HYDROmorphone 1 mg/ml ISec IVP ONE (15:30)
--- NOTE | 2018-05-17 15:39 | PCM.OP ---
Operative Report - Operative Report Date of Surgery/Procedure: 05/16/18 Time of Surgery/Procedure: 15:00 Surgeon: Roz Denise MD Anesthesia/Sedation: General endotracheal Pre-Operative Diagnosis: small bowel ischemia and takedown of previous gastrojejunostomy. s/p exploratory laparotomy and reduction of internal hernia. s/p laparoscopic gastric bypass Post-Operative Diagnosis: small bowel ischemia and takedown of previous gastrojejunostomy. s/p exploratory laparotomy and reduction of internal hernia. s/p laparoscopic gastric bypass Indication for Surgery: I was called into the operating room by Dr. Harley and Dr. Mccray to assist them by performing intra-operative uppe endoscopy to assess gastric pouch and perform leak test following resection of ischemia bowel including stapling off of previous gastrojejunostomy. Abdominal exploration will be dictated separately by Dr. Harley / Dr. Mccray Operative Findings: See below Procedure/Operation Description: Procedure performed: Diagnostic esophagogastroscopy. Details of Procedure: The patient had been previsouly intubated and sedated. A diagnpstic Olympus upper endoscope was inserted into the oropharyxn and esophagus canulated under direct vision. Thee esophagus appeared grossly normal. GEJ was again noted approximately at 38cm. Scope was advanced into the gastric pouch will appeared grossly normal, approximately 3- 4cm in length, before reaching abrupt cut from staple line. Pneumoperitoenum used to maximally dilate the gastric pouch. Dr. Mccray and Dr. Harley confirmed negative leak test intra-abdominally using saline. Once confirmed the gastric pouch was decompressed and any fluid suctioned out. The endoscope was then withdrawn and the oropharynx suctioned on the way out. The patient tolerated the procedure well without any complications or changes in hemodynamics. She remained intubated to allow Dr. Harley and Dr. Mccray to finish the abdominal portion of the operation. Estimated Blood Loss: none Complications: none Discharge & Condition: See above
--- NOTE | 2018-05-17 16:27 | CP.PCM.PN ---
Subjective - Date & Time of Evaluation Date of Evaluation: 05/17/18 Time of Evaluation: 14:30 - Subjective Subjective: Medical attending note: Patient extubated, on nasal cannula. Patient is off profol. Patient reporting mainly abdominal pain. She reports she does remember prior to her procedures. She has three drains. Note output from wound is greenish. j drains are serosauginous. Patient requires cooling blanket to relieve fever at bedside. Objective - Vital Signs/Intake and Output Vital Signs (last 24 hours): Temp Pulse Resp BP Pulse Ox 99.4 F 130 H 13 158/78 H 100 05/17/18 12:00 05/17/18 15:00 05/17/18 15:00 05/17/18 15:00 05/17/18 15:00 Intake and Output: 05/17/18 05/17/18 06:59 18:59 Intake Total 2713.7 1817.6 Output Total 1870 1060 Balance 843.7 757.6 - Medications Medications: Current Medications Artificial Tears (Lacri-Lube) 1 gm OU Q4H [facility] Last Admin: 05/17/18 15:47 Dose: 1 gm Dextrose (Dextrose 50% Inj) 0 ml IV STAT PRN; Protocol PRN Reason: Hypoglycemia Protocol Last Admin: 05/16/18 23:40 Dose: 50 ml Dextrose (Glutose 15) 0 gm PO ONCE PRN; Protocol PRN Reason: Hypoglycemia Protocol Glucagon (Glucagen Diagnostic Kit) 0 mg IM STAT PRN; Protocol PRN Reason: Hypoglycemia Protocol Heparin Sodium (Porcine) (Heparin) 5,000 units SC Q12 [facility] Last Admin: 05/17/18 09:57 Dose: 5,000 units Hydromorphone HCl (Dilaudid) 1 mg IVP Q6H [facility] Fentanyl Citrate 2,500 mcg/ (Sodium Chloride) 250 mls @ 16.32 mls/hr IV .[id number] [facility]; 2 MCG/KG/HR PRN Reason: Protocol Last Titration: 05/17/18 12:00 Dose: 4 mcg/kg/hr, 32.65 mls/hr Dextrose (Dextrose 5% In Water 1000 Ml) 1,000 mls @ 0 mls/hr IV .Q0M PRN; Protocol; Per Protocol PRN Reason: Hypoglycemia Protocol Metronidazole (Flagyl) 500 mg in 100 mls @ 100 mls/hr IVPB Q8H [facility] PRN Reason: Protocol Last Admin: 05/17/18 11:41 Dose: 100 mls/hr Meropenem 1 gm/ Sodium (Chloride) 100 mls @ 100 mls/hr IVPB Q8H [facility] PRN Reason: Protocol Last Admin: 05/17/18 11:01 Dose: 100 mls/hr Aztreonam 2 gm/ Sodium (Chloride) 100 mls @ 100 mls/hr IVPB Q8H [facility] PRN Reason: Protocol Last Admin: 05/17/18 13:27 Dose: 100 mls/hr Dextrose/Sodium Chloride (Dextrose 5%/0.45% Ns 1000 Ml) 1,000 mls @ 125 mls/hr IV .Q8H [facility] Last Admin: 05/17/18 07:35 Dose: 125 mls/hr Multivitamins/Vitamin C 10 ml/Chromium/Copper/Manganese/Zinc 1 ml/ Amino Acids 1,011 mls @ 42 mls/hr IV .Q24H ONE Stop: 05/18/18 17:59 Ipratropium [place] (Atrovent) 0.5 mg IH RQ6 [facility] Last Admin: 05/17/18 14:13 Dose: 0.5 mg Morphine Sulfate (Morphine) 1 mg IVP Q4 [facility] Ondansetron HCl (Zofran Inj) 4 mg IVP Q4 PRN PRN Reason: Nausea/Vomiting Pantoprazole Sodium (Protonix Inj) 40 mg IVP Q12H [facility] Last Admin: 05/17/18 09:13 Dose: 40 mg - Labs Labs: 05/17/18 06:27 05/17/18 06:27 PT 15.1 SECONDS (9.7-12.2) H 05/17/18 06:27 INR 1.4 05/17/18 06:27 APTT 33 SECONDS (21-34) 05/16/18 18:56 - Constitutional Appears: In Acute Distress, Older Than Stated Age, Chronically Ill - Head Exam Head Exam: NORMAL INSPECTION - Eye Exam Eye Exam: EOMI - Respiratory Exam Respiratory Exam: Decreased Breath Sounds, Rales, Respiratory Distress (pain related), NORMAL BREATHING PATTERN. absent: Stridor - Cardiovascular Exam Cardiovascular Exam: Tachycardia, +S1, +S2 - GI/Abdominal Exam GI & Abdominal Exam: Guarding, Soft, Tenderness, Hypoactive Bowel Sounds, Rebound. absent: Firm Additional comments: pain on palpation, soft belly, has two j-p drains serosaguinous and third noted greenish material - Extremities Exam Additional comments: scds b/l lynette present - Neurological Exam Neurological Exam: Alert, Awake - Psychiatric Exam Psychiatric exam: Agitated, Anxious - Skin Skin Exam: Diaphoretic, Dry, Normal Color, Warm. absent: Rash Assessment and Plan (1) Ischemic bowel disease Status: Acute (2) Obesity (BMI 30-39.9) Status: Acute (3) Status post gastric bypass for obesity Status: Acute (4) Small bowel obstruction Status: Acute (5) Prophylactic measure Status: Acute Attending/Attestation - Attestation I have personally seen and examined this patient.: Yes I have fully participated in the care of the patient.: Yes I have reviewed all pertinent clinical information, including history, physical exam and plan: Yes Notes (Text): (1) Ischemic bowel disease Assessment & Plan: * Dr. Harley (surgery) on the case-->help appreciated * Dr. Samara Denise (Surgery) on the case-->help appreciated * Preoperative/intraoperative/postoperative management per surgery * Dr. Alvarado (GI) on the case-->help appreciated * Dr. Rivera (ID) on the case-->help appreciated * Chest xray (05/14/18): no infiltrate, pleural effusion, or pneumothorax b/l. Diminished inspiratory volume question. No acute cardiovascular disease. * Lactic: 3.6 (prior OR)-->2.4 (post OR)-->2.3-->1.5-->1.6-->0.9 * Patient has had 2 bloody bowel movements started 05/14/18. Patient's rectal: blood. She had reported abdominal pain has worsening since night of admission. Patient required emergent surgical intervention on 05/14/18 and transferred to ICU. Patient will need a second surgery likely tomorrow on 05/16/18. * Per operative note (05/14/18): Diagnostic laparoscopy, Exploratory laparotomy, Reduction of internal hernia, Lysis of adhesions, Drainage of abdominal collections, temporary abdominal closure, EGD * Ischemia of yenni limb, internal hernia. [place] drain stitched to distal common limb * ICU evaluation noted: Patient underwent emergency laparotomy for possible ischemic bowel. Patient had GI bleed. In the operating room patient underwent extensive exploratory laparotomy. Significant gangrene of the small bowel noted. Hernia was identified, which was reduced.After that the significant improvement in the vasculature noted. * Patient underwent surgery again on 05/16/18.Re-exploration, Small bowel resection of ileum, small bowel resection of Yenni limb with gastrojejunostomy, reversal of bypass, primary anastomosis of ileum-ileum, ileum-ileum, and ileum- jejunum, Gastrostomy tube in bypassed stomach, EGD * Per surgery, monitor for abdominal compartment syndrome * Recommend TPN. * Will need f/u surgery in 4-6 weeks to restore GI * Patient extubated today 05/16/18. Patient is off Proprol. Patient remains on Fentanyl for diffuse abdominal pain. She reports she does remember me from prior to surgery. Main complaint is abdominal pain. * Drains included: NGT Tube, right min, left min, gastrostomy tube. * IV abx: * Aztreonam 2 gm IVPB Q8H (Active since 05/15/18) * Flagyl 500mg IVPB Q8H (active since 05/15/18) * Meropenem 1 gm IVPB Q8H (active 05/15/18) * pain prn: Dilaudid 1mg IV 6H PRN and Fentanyl drip * Cultures: * Peritoneal Fluid : no growth after 2days * Blood culture (05/15/18): no growth after 48 hours X2 * Urine culture: no growth Status: Acute (2) Small bowel obstruction Assessment & Plan: * Secondary to hernia * CT abdomen/Pelvis (05/13/18): Writhing appearance of mesentric vessels. Mesentric edema. No evidence of bowel obstruction. Whirling appearance of mesentric vessels is nonspecific. Prominent mesentric lymph nodes. Mesentric edema. (preop) * Patient has had 2 bloody bowel movements started 05/14/18. Patient's rectal: blood. She had reported abdominal pain has worsening since night of admission. Patient required emergent surgical intervention on 05/14/18 and transferred to ICU. Patient will need a second surgery likely tomorrow on 05/16/18. * Per operative note (05/14/18): Diagnostic laparoscopy, Exploratory laparotomy, Reduction of internal hernia, Lysis of adhesions, Drainage of abdominal collections, temporary abdominal closure, EGD * Ischemia of yenni limb, internal hernia. [place] drain stitched to distal common limb * ICU evaluation noted: Patient underwent emergency laparotomy for possible ischemic bowel. Patient had GI bleed. In the operating room patient underwent extensive exploratory laparotomy. Significant gangrene of the small bowel noted. Hernia was identified, which was reduced.After that the significant improvement in the vasculature noted. But there is still a segment of bowel not healthy (portion of the alimentary canal from prior gastric bypass surgery--> clarified with surgery resident), * Patient underwent surgery again on 05/16/18.Re-exploration, Small bowel resection of ileum, small bowel resection of Yenni limb with gastrojejunostomy, reversal of bypass, primary anastomosis of ileum-ileum, ileum-ileum, and ileum- jejunum, Gastrostomy tube in bypassed stomach, EGD * Per surgery, monitor for abdominal compartment syndrome * Recommend TPN. * Will need f/u surgery in 4-6 weeks to restore GI Status: Acute (3) Obesity (BMI 30-39.9) Assessment & Plan: * s/p gastric bypass surgery in 2013 * Operative note (2013): Yenni-en-Y gastric bypass surgery Status: Acute (4) Status post gastric bypass for obesity Assessment & Plan: * status post gastric bypass 2013 * Operative note (2013): Yenni-en-Y gastric bypass surgery Status: Acute (5) History of Asthma Assessment & Plan: * Patient not in acute exacerbation prior to OR (6) Leukocytosis Assessment & Plan: * Likely secondary to ischemic bowel secondary to small bowel obstruction () and had surgery (05/16/18) * IV abx: * Aztreonam 2 gm IVPB Q8H (Active since 05/15/18) * Flagyl 500mg IVPB Q8H (active since 05/15/18) * Meropenem 1 gm IVPB Q8H (active 05/15/18) * pain prn: Dilaudid 1mg IV 6H PRN and Fentanyl drip * Cultures: * Peritoneal Fluid : no growth after 2days * Blood culture (05/15/18): no growth after 48 hours X2 * Urine culture: no growth (7) Diabetes Mellitus (Type 2); controlled Assessment & Plan: * From prior note: * Admittedly non-compliant - has not taken Januvia for one year * Accuchecks Q6H * Hypoglycemic protocol * HbA1c - 6.3 (03/10/17) * hgba1c: 02/15 * History of gastric bypass surgery (8) Hx of HTN (hypertension) Assessment & Plan: * Since Gastric Bypass has not taken meds (9) Hx of Hypothyroid Assessment & Plan: * From prior note: * Pt admits non-compliance (10) Hypercholesterolemia Assessment & Plan: * From prior note: * Pt not taking meds * LDL 138, HDL 67, Tchol 220, Trig 112 * History of gastric bypass surgery (11) Anxiety Assessment & Plan: * Patient was taking Xanax for anxiety noted in prior note (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
[2018-05-17] MEDS ORDERED: TPN #1 IV ONE (18:00)
[2018-05-17] MEDS: HYDROmorphone 1 mg/ml ISec IVP SCH (21:08)
--- NOTE | 2018-05-17 21:42 | CP.PCM.PN ---
Subjective - Date & Time of Evaluation Date of Evaluation: 05/17/18 Time of Evaluation: 04:00 - Subjective Subjective: dictated Objective - Vital Signs/Intake and Output Vital Signs (last 24 hours): Temp Pulse Resp BP Pulse Ox 99.9 F H 130 H 16 146/72 100 05/17/18 20:00 05/17/18 21:00 05/17/18 21:00 05/17/18 21:00 05/17/18 21:00 Intake and Output: 05/17/18 05/18/18 18:59 06:59 Intake Total 2379.1 488 Output Total 1975 460 Balance 404.1 28 - Medications Medications: Current Medications Artificial Tears (Lacri-Lube) 1 gm OU Q4H [facility] Last Admin: 05/17/18 21:01 Dose: Not Given Dextrose (Dextrose 50% Inj) 0 ml IV STAT PRN; Protocol PRN Reason: Hypoglycemia Protocol Last Admin: 05/16/18 23:40 Dose: 50 ml Dextrose (Glutose 15) 0 gm PO ONCE PRN; Protocol PRN Reason: Hypoglycemia Protocol Glucagon (Glucagen Diagnostic Kit) 0 mg IM STAT PRN; Protocol PRN Reason: Hypoglycemia Protocol Heparin Sodium (Porcine) (Heparin) 5,000 units SC Q12 [facility] Last Admin: 05/17/18 09:57 Dose: 5,000 units Hydromorphone HCl (Dilaudid) 1 mg IVP Q6H [facility] Last Admin: 05/17/18 21:08 Dose: 1 mg Fentanyl Citrate 2,500 mcg/ (Sodium Chloride) 250 mls @ 16.32 mls/hr IV .[id number] [facility]; 2 MCG/KG/HR PRN Reason: Protocol Last Titration: 05/17/18 17:30 Dose: 0.5 mcg/kg/hr, 4.08 mls/hr Dextrose (Dextrose 5% In Water 1000 Ml) 1,000 mls @ 0 mls/hr IV .Q0M PRN; Protocol; Per Protocol PRN Reason: Hypoglycemia Protocol Metronidazole (Flagyl) 500 mg in 100 mls @ 100 mls/hr IVPB Q8H [facility] PRN Reason: Protocol Last Admin: 05/17/18 19:51 Dose: 100 mls/hr Meropenem 1 gm/ Sodium (Chloride) 100 mls @ 100 mls/hr IVPB Q8H [facility] PRN Reason: Protocol Last Admin: 05/17/18 17:59 Dose: 100 mls/hr Aztreonam 2 gm/ Sodium (Chloride) 100 mls @ 100 mls/hr IVPB Q8H [facility] PRN Reason: Protocol Last Admin: 05/17/18 21:07 Dose: 100 mls/hr Dextrose/Sodium Chloride (Dextrose 5%/0.45% Ns 1000 Ml) 1,000 mls @ 125 mls/hr IV .Q8H [facility] Last Admin: 05/17/18 16:00 Dose: Not Given Multivitamins/Vitamin C 10 ml/Chromium/Copper/Manganese/Zinc 1 ml/ Amino Acids 1,011 mls @ 42 mls/hr IV .Q24H ONE Stop: 05/18/18 17:59 Last Admin: 05/17/18 17:25 Dose: 42 mls/hr Ipratropium [place] (Atrovent) 0.5 mg IH RQ6 [facility] Last Admin: 05/17/18 19:39 Dose: 0.5 mg Morphine Sulfate (Morphine) 1 mg IVP Q4 [facility] Last Admin: 05/17/18 19:51 Dose: 1 mg Nicotine (Nicoderm Cq) 1 patch TD DAILY [facility] Ondansetron HCl (Zofran Inj) 4 mg IVP Q4 PRN PRN Reason: Nausea/Vomiting Pantoprazole Sodium (Protonix Inj) 40 mg IVP Q12H [facility] Last Admin: 05/17/18 21:07 Dose: 40 mg - Labs Labs: 05/17/18 06:27 05/17/18 06:27 PT 15.1 SECONDS (9.7-12.2) H 05/17/18 06:27 INR 1.4 05/17/18 06:27 APTT 33 SECONDS (21-34) 05/16/18 18:56
[2018-05-18] MEDS: White Petrolatum/Mineral Oil Ophth Oint(3.5 gm) OU SCH ×3 (00:35→07:58)
[2018-05-18] MEDS: Ipratropium 0.02% Inhal Soln (0.5 mg/2.5 ml) UD IH SCH ×4 (01:18→20:25)
[2018-05-18] MEDS: Meropenem 1 GM in Sodium Chloride 0.9% 100 ML IVPB SCH ×3 (03:19→18:36)
[2018-05-18] MEDS: HYDROmorphone 1 mg/ml ISec IVP SCH ×6 (03:20→22:34)
[2018-05-18] MEDS: metroNIDAZOLE IV 500 mg/100 ml 500 MG/100 ML BAG IVPB SCH ×3 (03:23→19:51)
[2018-05-18] MEDS: Aztreonam 2 GM in Sodium Chloride 0.9% 100 ML IVPB SCH ×3 (05:10→21:01)
[2018-05-18 06:29] LABS: BASO % 0.3 % (0.0-2.0); EOS # 0.1 K/uL (0.0-0.7); EOS % 0.7 % (0.0-4.0); HEMOGLOBIN 8.6 g/dL (11.0-16.0); LYMPH # 1.3 K/uL (1.0-4.3); LYMPH % 8.3 % (20.0-40.0); MEAN CELL VOLUME 86.5 fL (81.0-99.0); MEAN CORPUSCULAR HEMOGLOBIN 28.8 pg (27.0-31.0); MEAN CORPUSCULAR HGB CONC 33.3 g/dL (33.0-37.0); MEAN PLATELET VOLUME 7.1 fL (7.2-11.7); MONO # 0.9 K/uL (0.0-0.8); NEUT # 13.4 K/uL (1.8-7.0); NEUT % 84.7 % (50.0-75.0); NRBC % 0.1 % (0.0-2.0); PLATELET COUNT 135 K/uL (130-400); RBC 2.99 Mil/uL (3.80-5.20); RED CELL DISTRIBUTION WIDTH 17.2 % (11.5-14.5); WHITE BLOOD COUNT 15.8 K/uL (4.8-10.8)
[2018-05-18 06:38] LABS: INR 1.3; PROTHROMBIN TIME 14.3 SECONDS (9.7-12.2)
--- NOTE | 2018-05-18 06:46 | PN ---
Copied To: Guero Rivera MD Attending MD: Guero Rivera MD DATE: 05/17/2018 SUBJECTIVE: The patient's T-max is 100.2. Remains with heart rate of 113, respirations are 16. She was extubated when I saw her. Blood pressure was 141/75. The patient underwent extensive surgery yesterday and operative report, I am going to read that. Postop, there was small bowel ischemia and takedown of previous gastrojejunostomy, status post exploratory laparotomy, and reduction of internal hernia, status post laparoscopic gastric bypass, and so this patient had extensive surgery yesterday. She remains with little fever and still tachycardic, and was on nasal cannula. She was drowsy when I saw her, and she has drains. OBJECTIVE: GENERAL: She is on cooling blanket at times, according to the nurse. HEENT: Head is atraumatic, normocephalic. NECK: Supple. LUNGS: Clear. No crackles or rales present. HEART: S1, S2, tachycardic. ABDOMEN: Remains with guarding and tenderness. Postop tenderness is there, has JONAH drains. EXTREMITIES: Have no edema, and she is still very drowsy. Labs are noted. Labs show white count is 17.1, hemoglobin 10.4, hematocrit 31.3, platelet count is 136,000. She has 23 bands, INR is 1.4. ABG was done which showed the pO2 was 148, and this is from the A-line, pCO2 is 39, pH is 7.37, CO2 is 23.7 . Sodium was 140, potassium 4, chloride of 110. Her total bili is 2.2, AST is 89, alk phos is 186. Micro cultures have all been negative, blood, urine. She is on medications. We had left her on Azactam, Flagyl and meropenem so we have double covering for the gram-negatives, and she still has slight fever. We will monitor, and if she remains febrile, we will add antifungal coverage to Mycamine. The patient did come with ischemic bowel, and she had a history of gastric bypass, was in respiratory failure and status post extubation right now, and her x-ray today showed NG tube terminates in the esophagus, advancing the catheter into stomach, is advised followup by confirmation and ET tube and CVC are unchanged in position and limited left basilar atelectasis is noted, and the findings were discussed with the nurse, Mendy. Since then probably, she has been extubated. We will follow. Continue these three antibiotics for now. Guero Rivera MD
[2018-05-18 06:56] LABS: ALB/GLOB RATIO 1.1 (1.0-2.1); ALBUMIN 2.2 g/dL (3.5-5.0); ALT/SGPT 133 U/L (9-52); AST/SGOT 68 U/L (14-36); BLOOD UREA NITROGEN 7 mg/dL (7-17); CALCIUM 7.1 mg/dl (8.6-10.4); GFR NON-AFRICAN AMERICAN > 60
[2018-05-18] MEDS: Dextrose 5%/0.45% NS 1,000 ML IV SCH (07:35)
[2018-05-18 08:24] LABS: BANDS 12 % (0-2); LYMPHOCYTE 6 % (20-40); MONOCYTE 3 % (0-10); NEUTROPHIL 79 % (50-75); TOTAL CELLS COUNTED 100
[2018-05-18 08:26] LABS: PLATELET ESTIMATE NORMAL (NORMAL)
--- NOTE | 2018-05-18 09:09 | CP.PCM.PN ---
Subjective - Date & Time of Evaluation Date of Evaluation: 05/18/18 Time of Evaluation: 09:07 - Subjective Subjective: F/u GI bleed. Extubated. Decresed bleeding. No melena, hemoptysis, hematemesis, hematuria, chills, SZ, tremor, HURT, cough Objective - Vital Signs/Intake and Output Vital Signs (last 24 hours): Temp Pulse Resp BP Pulse Ox 100.3 F H 123 H 17 148/76 100 05/18/18 08:00 05/18/18 08:00 05/18/18 08:00 05/18/18 08:00 05/18/18 08:00 Intake and Output: 05/18/18 05/18/18 06:59 18:59 Intake Total 1933.7 184 Output Total 1870 100 Balance 63.7 84 - Medications Medications: Current Medications Artificial Tears (Lacri-Lube) 1 gm OU Q4H [facility] Last Admin: 05/18/18 07:58 Dose: 1 gm Dextrose (Dextrose 50% Inj) 0 ml IV STAT PRN; Protocol PRN Reason: Hypoglycemia Protocol Last Admin: 05/16/18 23:40 Dose: 50 ml Dextrose (Glutose 15) 0 gm PO ONCE PRN; Protocol PRN Reason: Hypoglycemia Protocol Glucagon (Glucagen Diagnostic Kit) 0 mg IM STAT PRN; Protocol PRN Reason: Hypoglycemia Protocol Heparin Sodium (Porcine) (Heparin) 5,000 units SC Q12 [facility] Last Admin: 05/17/18 22:00 Dose: 5,000 units Hydromorphone HCl (Dilaudid) 1 mg IVP Q6H [facility] Last Admin: 05/18/18 08:51 Dose: 1 mg Fentanyl Citrate 2,500 mcg/ (Sodium Chloride) 250 mls @ 16.32 mls/hr IV .[id number] [facility]; 2 MCG/KG/HR PRN Reason: Protocol Last Admin: 05/18/18 00:53 Dose: Not Given Dextrose (Dextrose 5% In Water 1000 Ml) 1,000 mls @ 0 mls/hr IV .Q0M PRN; Protocol; Per Protocol PRN Reason: Hypoglycemia Protocol Metronidazole (Flagyl) 500 mg in 100 mls @ 100 mls/hr IVPB Q8H [facility] PRN Reason: Protocol Last Admin: 05/18/18 03:23 Dose: 100 mls/hr Meropenem 1 gm/ Sodium (Chloride) 100 mls @ 100 mls/hr IVPB Q8H [facility] PRN Reason: Protocol Last Admin: 05/18/18 03:19 Dose: 100 mls/hr Aztreonam 2 gm/ Sodium (Chloride) 100 mls @ 100 mls/hr IVPB Q8H [facility] PRN Reason: Protocol Last Admin: 05/18/18 05:10 Dose: 100 mls/hr Multivitamins/Vitamin C 10 ml/Chromium/Copper/Manganese/Zinc 1 ml/ Amino Acids 1,011 mls @ 42 mls/hr IV .Q24H ONE Stop: 05/18/18 17:59 Last Admin: 05/17/18 17:25 Dose: 42 mls/hr Ipratropium [place] (Atrovent) 0.5 mg IH RQ6 [facility] Last Admin: 05/18/18 08:08 Dose: 0.5 mg Morphine Sulfate (Morphine) 1 mg IVP Q4 [facility] Last Admin: 05/18/18 07:37 Dose: 1 mg Nicotine (Nicoderm Cq) 1 patch TD DAILY [facility] Ondansetron HCl (Zofran Inj) 4 mg IVP Q4 PRN PRN Reason: Nausea/Vomiting Pantoprazole Sodium (Protonix Inj) 40 mg IVP Q12H [facility] Last Admin: 05/17/18 21:07 Dose: 40 mg - Labs Labs: 05/18/18 06:25 05/18/18 06:25 PT 14.3 SECONDS (9.7-12.2) H 05/18/18 06:25 INR 1.3 05/18/18 06:25 APTT 33 SECONDS (21-34) 05/16/18 18:56 - Neck Exam Neck Exam: absent: Tenderness - Respiratory Exam Respiratory Exam: Clear to Ausculation Bilateral - Cardiovascular Exam Cardiovascular Exam: Tachycardia - GI/Abdominal Exam GI & Abdominal Exam: Tenderness. absent: Normal Bowel Sounds - Neurological Exam Neurological Exam: Awake Assessment and Plan (1) Rectal bleeding Assessment & Plan: SB gangrene. Status: Acute (2) Leucocytosis Assessment & Plan: Improving Status: Acute (3) Small bowel obstruction due to adhesions Status: Acute (4) Abdominal pain Status: Acute (5) Asthma Status: Acute (6) HTN (hypertension) Status: Acute (7) Obesity (BMI 30-39.9) Status: Acute (8) Abnormal LFTs Assessment & Plan: sepsis, hypotension. LFTs are improving. Status: Acute
--- NOTE | 2018-05-18 09:51 | CP.CCUPN ---
<Jose Angel Cornelius - Last Filed: 05/18/18 13:15> CCU Subjective - Physician Review Subjective (Free Text): Jose Angel Cornelius DO PGY-1, ICU progress note for Dr. Thomas Pt was seen and examined at bedside. Pt reports moderate diffuse abdominal pain , and states that she had 1 episode of bubbly spit up which has now resolved. Pt is also complaining of some shortness of breath. Pt was noted to be febrile last night, tmax 100.4. Pt only complains of moderate diffuse abdominal pain at this time. Pt denies headache, new onset weakness, dizziness, new onset lightheadedness, chest pain, n/v/d. Pt has produced 2930 mL of urine over the past 24 hours. A 12-point ROS was reviewed and is otherwise unremarkable. CCU Objective - Vital Signs / Intake & Output Vital Signs (Last 4 hours): Vital Signs Temp Pulse Resp BP BP Pulse Ox 05/18/18 09:00 126 H 22 161/89 H 98 05/18/18 08:56 123 H 17 135/88 99 05/18/18 08:00 100.3 F H 123 H 17 148/76 100 05/18/18 07:56 125 H 17 135/88 100 05/18/18 07:00 123 H 21 100 05/18/18 06:56 122 H 18 143/92 H 100 05/18/18 06:00 121 H 15 160/80 H 100 05/18/18 05:56 128/86 Intake and Output (Last 8hrs): Intake & Output 05/17/18 05/18/18 05/18/18 22:59 06:59 14:59 Intake Total 1392.0 1261 226 Output Total 1790 1120 235 Balance -398.0 141 -9 Weight 86.183 kg 86.636 kg Intake: IV 186.0 Intake, IV Amount 1206.0 1261 226 Right Distal Port 550 925 100 Internal Jugular Right Forearm 375 Right Medial Port 71.0 Internal Jugular Right Proximal Port 210 336 126 Output: Drainage 635 Left Lower Abdomen 160 Left Upper Abdomen 325 Medial Abdomen 50 Right Lower Abdomen 100 Urine 1155 1120 235 Urine, Voided 1155 1120 235 - Physical Exam Head: Positive for: Atraumatic, Normocephalic Pupils: Positive for: PERRL Extroacular Muscles: Positive for: EOMI Conjunctiva: Positive for: Normal Mouth: Positive for: Moist Mucous Membranes Nose (External): Positive for: Other ((+) NGT with small amount of black material in cannister (unchanged from prior examination)) Neck: Positive for: Other ((+) central line in right IJ) Respiratory/Chest: Positive for: Clear to Auscultation, Good Air Exchange, Accessory Muscle Use. Negative for: Respiratory Distress (tachypneic at 24 but maintaining spo2>95%), Wheezes, Rales Cardiovascular: Positive for: Normal S1, S2, Tachycardic Abdomen: Positive for: Tenderness (diffuse tenderness), Other ( (+) large vertical incision with wound vac draining scant serous fluid, (+) bilateral min drains with serosanguinous fluid, (+) g-tube draining dark, bilious fluid) Upper Extremity: Positive for: Normal Inspection, NORMAL PULSES Lower Extremity: Positive for: Edema ((+) non-pitting edema), NORMAL PULSES. Negative for: CALF TENDERNESS Neurological: Positive for: GCS=15, CN II-XII Intact, Other ((+) intubated, sedated and paralyzed) Skin: Positive for: Warm, Dry Psychiatric: Positive for: Alert, Oriented x 3 - Medications Active Medications: Active Medications Generic Name Dose Route Start Last Admin Trade Name Freq PRN Reason Stop Dose Admin Artificial Tears 1 gm 05/15/18 04:00 05/18/18 07:58 Lacri-Lube OU 1 gm Q4H KATELYN Administration Dextrose 0 ml 05/15/18 08:36 05/16/18 23:40 Dextrose 50% Inj IV 50 ml STAT PRN Administration Hypoglycemia Protocol Protocol Dextrose 0 gm 05/15/18 08:36 Glutose 15 PO ONCE PRN Hypoglycemia Protocol Protocol Glucagon 0 mg 05/15/18 08:36 Glucagen Diagnostic Kit IM STAT PRN Hypoglycemia Protocol Protocol Heparin Sodium (Porcine) 5,000 units 05/17/18 10:00 05/17/18 22:00 Heparin SC 5,000 units Q12 KATELYN Administration Hydromorphone HCl 1 mg 05/17/18 21:00 05/18/18 08:51 Dilaudid IVP 1 mg Q6H KATELYN Administration Fentanyl Citrate 2,500 mcg/ 250 mls @ 16.32 mls/hr 05/14/18 17:45 05/18/18 00 :53 Sodium Chloride IV Not Given .[id number] KATELYN Protocol 2 MCG/KG/HR Dextrose 1,000 mls @ 0 mls/hr 05/15/18 08:36 Dextrose 5% In Water 1000 Ml IV .Q0M PRN Hypoglycemia Protocol Protocol Per Protocol Metronidazole 500 mg in 100 mls @ 100 mls/hr 05/15/18 12:00 05/18/18 03:23 Flagyl IVPB 100 mls/hr Q8H KATELYN Administration Protocol Meropenem 1 gm/ Sodium 100 mls @ 100 mls/hr 05/15/18 11:00 05/18/18 03:19 Chloride IVPB 100 mls/hr Q8H KATELYN Administration Protocol Aztreonam 2 gm/ Sodium 100 mls @ 100 mls/hr 05/15/18 14:00 05/18/18 05:10 Chloride IVPB 100 mls/hr Q8H KATELYN Administration Protocol Multivitamins/Vitamin C 10 ml/ 1,011 mls @ 42 mls/hr 05/17/18 18:00 05/17/18 17:25 Chromium/Copper/Manganese/ IV 05/18/18 17:59 42 mls/hr Zinc 1 ml/ Amino Acids .Q24H ONE Administration Ipratropium [place] 0.5 mg 05/17/18 14:00 05/18/18 08:08 Atrovent IH 0.5 mg RQ6 KATELYN Administration Morphine Sulfate 1 mg 05/17/18 16:00 05/18/18 07:37 Morphine IVP 1 mg Q4 KATELYN Administration Nicotine 1 patch 05/18/18 10:00 Nicoderm Cq TD DAILY KATELYN Ondansetron HCl 4 mg 05/14/18 02:57 Zofran Inj IVP Q4 PRN Nausea/Vomiting Pantoprazole Sodium 40 mg 05/16/18 10:00 05/18/18 09:15 Protonix Inj IVP 40 mg Q12H KATELYN Administration - Patient Studies Lab Studies: Microbiology Studies 05/15/18 12:51 Blood Culture - Preliminary Blood-Thru Central Line NO GROWTH AFTER 48 HOURS 05/15/18 12:51 Blood Culture - Preliminary Blood-Thru Central Line NO GROWTH AFTER 48 HOURS 05/14/18 16:56 Gram Stain - Final Peritoneal Fluid Body Fluid Culture - Preliminary NO GROWTH AFTER 2 DAYS Lab Studies 05/18/18 05/18/18 05/18/18 Range/Units 06:25 06:25 06:25 WBC 15.8 H (4.8-10.8) K/uL RBC 2.99 L (3.80-5.20) Mil/uL Hgb 8.6 L (11.0-16.0) g/dL Hct 25.8 L (34.0-47.0) % MCV 86.5 (81.0-99.0) fL MCH 28.8 (27.0-31.0) pg MCHC 33.3 (33.0-37.0) g/dL RDW 17.2 H (11.5-14.5) % Plt Count 135 (130-400) K/uL MPV 7.1 L (7.2-11.7) fL Neut % (Auto) 84.7 H (50.0-75.0) % Lymph % (Auto) 8.3 L (20.0-40.0) % [place] % (Auto) 6.0 (0.0-10.0) % Eos % (Auto) 0.7 (0.0-4.0) % Baso % (Auto) 0.3 (0.0-2.0) % Neut # (Auto) 13.4 H (1.8-7.0) K/uL Lymph # (Auto) 1.3 (1.0-4.3) K/uL [place] # (Auto) 0.9 H (0.0-0.8) K/uL Eos # (Auto) 0.1 (0.0-0.7) K/uL Baso # (Auto) 0.0 (0.0-0.2) K/uL Neutrophils % (Manual) 79 H (50-75) % Band Neutrophils % 12 H* (0-2) % Lymphocytes % (Manual) 6 L (20-40) % Monocytes % (Manual) 3 (0-10) % Platelet Estimate Normal (NORMAL) RBC Morphology Normal PT 14.3 H (9.7-12.2) SECONDS INR 1.3 Puncture Site pCO2 (35-45) mm/Hg pO2 (80-100) mm/Hg HCO3 (21-28) mmol/L ABG pH (7.35-7.45) ABG Total CO2 (22-28) mmol/L ABG O2 Saturation (95-98) % ABG Base Excess (-2.0-3.0) mmol/L ABG Hemoglobin (11.7-17.4) g/dL ABG Carboxyhemoglobin (0.5-1.5) % POC ABG HHb (Measured) (0.0-5.0) % ABG Methemoglobin (0.0-3.0) % Jonathan Test A-a O2 Difference mm/Hg Respiratory Index Hgb O2 Saturation (95.0-98.0) % FiO2 % Sodium 140 (132-148) mmol/L Potassium 3.0 L (3.6-5.2) mmol/L Chloride 106 (98-107) mmol/L Carbon Dioxide 31 H (22-30) mmol/L Anion Gap 6 L (10-20) BUN 7 (7-17) mg/dL Creatinine 0.5 L (0.7-1.2) mg/dL Est GFR ( Amer) > 60 Est GFR (Non-Af Amer) > 60 POC Glucose (mg/dL) (65-110) mg/dL Random Glucose 117 H (65-105) mg/dL Calcium 7.1 L (8.6-10.4) mg/dl Phosphorus 1.9 L (2.5-4.5) mg/dL Magnesium 1.8 (1.6-2.3) mg/dL Total Bilirubin 2.5 H (0.2-1.3) mg/dL AST 68 H D (14-36) U/L ALT 133 H D (9-52) U/L Alkaline Phosphatase 118 (38-126) U/L Total Protein 4.3 L (6.3-8.3) g/dL Albumin 2.2 L (3.5-5.0) g/dL Globulin 2.1 L (2.2-3.9) gm/dL Albumin/Globulin Ratio 1.1 (1.0-2.1) 05/18/18 05/17/18 05/17/18 Range/Units 00:41 17:50 13:28 WBC (4.8-10.8) K/uL RBC (3.80-5.20) Mil/uL Hgb (11.0-16.0) g/dL Hct (34.0-47.0) % MCV (81.0-99.0) fL MCH (27.0-31.0) pg MCHC (33.0-37.0) g/dL RDW (11.5-14.5) % Plt Count (130-400) K/uL MPV (7.2-11.7) fL Neut % (Auto) (50.0-75.0) % Lymph % (Auto) (20.0-40.0) % [place] % (Auto) (0.0-10.0) % Eos % (Auto) (0.0-4.0) % Baso % (Auto) (0.0-2.0) % Neut # (Auto) (1.8-7.0) K/uL Lymph # (Auto) (1.0-4.3) K/uL [place] # (Auto) (0.0-0.8) K/uL Eos # (Auto) (0.0-0.7) K/uL Baso # (Auto) (0.0-0.2) K/uL Neutrophils % (Manual) (50-75) % Band Neutrophils % (0-2) % Lymphocytes % (Manual) (20-40) % Monocytes % (Manual) (0-10) % Platelet Estimate (NORMAL) RBC Morphology PT (9.7-12.2) SECONDS INR Puncture Site A line pCO2 39 (35-45) mm/Hg pO2 148 H (80-100) mm/Hg HCO3 23.0 (21-28) mmol/L ABG pH 7.37 (7.35-7.45) ABG Total CO2 23.7 (22-28) mmol/L ABG O2 Saturation 96.5 (95-98) % ABG Base Excess -2.5 L (-2.0-3.0) mmol/L ABG Hemoglobin 9.2 L (11.7-17.4) g/dL ABG Carboxyhemoglobin 0 L (0.5-1.5) % POC ABG HHb (Measured) 3.5 (0.0-5.0) % ABG Methemoglobin 0.0 (0.0-3.0) % Ojnathan Test Na A-a O2 Difference 160.0 mm/Hg Respiratory Index 1.1 Hgb O2 Saturation 96.5 (95.0-98.0) % FiO2 50.0 % Sodium (132-148) mmol/L Potassium (3.6-5.2) mmol/L Chloride (98-107) mmol/L Carbon Dioxide (22-30) mmol/L Anion Gap (10-20) BUN (7-17) mg/dL Creatinine (0.7-1.2) mg/dL Est GFR ( Amer) Est GFR (Non-Af Amer) POC Glucose (mg/dL) 182 H 91 (65-110) mg/dL Random Glucose (65-105) mg/dL Calcium (8.6-10.4) mg/dl Phosphorus (2.5-4.5) mg/dL Magnesium (1.6-2.3) mg/dL Total Bilirubin (0.2-1.3) mg/dL AST (14-36) U/L ALT (9-52) U/L Alkaline Phosphatase (38-126) U/L Total Protein (6.3-8.3) g/dL Albumin (3.5-5.0) g/dL Globulin (2.2-3.9) gm/dL Albumin/Globulin Ratio (1.0-2.1) 05/17/18 05/17/18 05/17/18 Range/Units 11:38 04:54 00:11 WBC (4.8-10.8) K/uL RBC (3.80-5.20) Mil/uL Hgb (11.0-16.0) g/dL Hct (34.0-47.0) % MCV (81.0-99.0) fL MCH (27.0-31.0) pg MCHC (33.0-37.0) g/dL RDW (11.5-14.5) % Plt Count (130-400) K/uL MPV (7.2-11.7) fL Neut % (Auto) (50.0-75.0) % Lymph % (Auto) (20.0-40.0) % [place] % (Auto) (0.0-10.0) % Eos % (Auto) (0.0-4.0) % Baso % (Auto) (0.0-2.0) % Neut # (Auto) (1.8-7.0) K/uL Lymph # (Auto) (1.0-4.3) K/uL [place] # (Auto) (0.0-0.8) K/uL Eos # (Auto) (0.0-0.7) K/uL Baso # (Auto) (0.0-0.2) K/uL Neutrophils % (Manual) (50-75) % Band Neutrophils % (0-2) % Lymphocytes % (Manual) (20-40) % Monocytes % (Manual) (0-10) % Platelet Estimate (NORMAL) RBC Morphology PT (9.7-12.2) SECONDS INR Puncture Site pCO2 (35-45) mm/Hg pO2 (80-100) mm/Hg HCO3 (21-28) mmol/L ABG pH (7.35-7.45) ABG Total CO2 (22-28) mmol/L ABG O2 Saturation (95-98) % ABG Base Excess (-2.0-3.0) mmol/L ABG Hemoglobin (11.7-17.4) g/dL ABG Carboxyhemoglobin (0.5-1.5) % POC ABG HHb (Measured) (0.0-5.0) % ABG Methemoglobin (0.0-3.0) % Jonathan Test A-a O2 Difference mm/Hg Respiratory Index Hgb O2 Saturation (95.0-98.0) % FiO2 % Sodium (132-148) mmol/L Potassium (3.6-5.2) mmol/L Chloride (98-107) mmol/L Carbon Dioxide (22-30) mmol/L Anion Gap (10-20) BUN (7-17) mg/dL Creatinine (0.7-1.2) mg/dL Est GFR ( Amer) Est GFR (Non-Af Amer) POC Glucose (mg/dL) 95 78 107 (65-110) mg/dL Random Glucose (65-105) mg/dL Calcium (8.6-10.4) mg/dl Phosphorus (2.5-4.5) mg/dL Magnesium (1.6-2.3) mg/dL Total Bilirubin (0.2-1.3) mg/dL AST (14-36) U/L ALT (9-52) U/L Alkaline Phosphatase (38-126) U/L Total Protein (6.3-8.3) g/dL Albumin (3.5-5.0) g/dL Globulin (2.2-3.9) gm/dL Albumin/Globulin Ratio (1.0-2.1) 05/16/18 05/16/18 05/16/18 Range/Units 23:39 23:35 18:04 WBC (4.8-10.8) K/uL RBC (3.80-5.20) Mil/uL Hgb (11.0-16.0) g/dL Hct (34.0-47.0) % MCV (81.0-99.0) fL MCH (27.0-31.0) pg MCHC (33.0-37.0) g/dL RDW (11.5-14.5) % Plt Count (130-400) K/uL MPV (7.2-11.7) fL Neut % (Auto) (50.0-75.0) % Lymph % (Auto) (20.0-40.0) % [place] % (Auto) (0.0-10.0) % Eos % (Auto) (0.0-4.0) % Baso % (Auto) (0.0-2.0) % Neut # (Auto) (1.8-7.0) K/uL Lymph # (Auto) (1.0-4.3) K/uL [place] # (Auto) (0.0-0.8) K/uL Eos # (Auto) (0.0-0.7) K/uL Baso # (Auto) (0.0-0.2) K/uL Neutrophils % (Manual) (50-75) % Band Neutrophils % (0-2) % Lymphocytes % (Manual) (20-40) % Monocytes % (Manual) (0-10) % Platelet Estimate (NORMAL) RBC Morphology PT (9.7-12.2) SECONDS INR Puncture Site pCO2 (35-45) mm/Hg pO2 (80-100) mm/Hg HCO3 (21-28) mmol/L ABG pH (7.35-7.45) ABG Total CO2 (22-28) mmol/L ABG O2 Saturation (95-98) % ABG Base Excess (-2.0-3.0) mmol/L ABG Hemoglobin (11.7-17.4) g/dL ABG Carboxyhemoglobin (0.5-1.5) % POC ABG HHb (Measured) (0.0-5.0) % ABG Methemoglobin (0.0-3.0) % Jonathan Test A-a O2 Difference mm/Hg Respiratory Index Hgb O2 Saturation (95.0-98.0) % FiO2 % Sodium (132-148) mmol/L Potassium (3.6-5.2) mmol/L Chloride (98-107) mmol/L Carbon Dioxide (22-30) mmol/L Anion Gap (10-20) BUN (7-17) mg/dL Creatinine (0.7-1.2) mg/dL Est GFR ( Amer) Est GFR (Non-Af Amer) POC Glucose (mg/dL) 68 54 L 76 (65-110) mg/dL Random Glucose (65-105) mg/dL Calcium (8.6-10.4) mg/dl Phosphorus (2.5-4.5) mg/dL Magnesium (1.6-2.3) mg/dL Total Bilirubin (0.2-1.3) mg/dL AST (14-36) U/L ALT (9-52) U/L Alkaline Phosphatase (38-126) U/L Total Protein (6.3-8.3) g/dL Albumin (3.5-5.0) g/dL Globulin (2.2-3.9) gm/dL Albumin/Globulin Ratio (1.0-2.1) 05/16/18 05/16/18 Range/Units 18:02 05:31 WBC (4.8-10.8) K/uL RBC (3.80-5.20) Mil/uL Hgb (11.0-16.0) g/dL Hct (34.0-47.0) % MCV (81.0-99.0) fL MCH (27.0-31.0) pg MCHC (33.0-37.0) g/dL RDW (11.5-14.5) % Plt Count (130-400) K/uL MPV (7.2-11.7) fL Neut % (Auto) (50.0-75.0) % Lymph % (Auto) (20.0-40.0) % [place] % (Auto) (0.0-10.0) % Eos % (Auto) (0.0-4.0) % Baso % (Auto) (0.0-2.0) % Neut # (Auto) (1.8-7.0) K/uL Lymph # (Auto) (1.0-4.3) K/uL [place] # (Auto) (0.0-0.8) K/uL Eos # (Auto) (0.0-0.7) K/uL Baso # (Auto) (0.0-0.2) K/uL Neutrophils % (Manual) (50-75) % Band Neutrophils % (0-2) % Lymphocytes % (Manual) (20-40) % Monocytes % (Manual) (0-10) % Platelet Estimate (NORMAL) RBC Morphology PT (9.7-12.2) SECONDS INR Puncture Site pCO2 (35-45) mm/Hg pO2 (80-100) mm/Hg HCO3 (21-28) mmol/L ABG pH (7.35-7.45) ABG Total CO2 (22-28) mmol/L ABG O2 Saturation (95-98) % ABG Base Excess (-2.0-3.0) mmol/L ABG Hemoglobin (11.7-17.4) g/dL ABG Carboxyhemoglobin (0.5-1.5) % POC ABG HHb (Measured) (0.0-5.0) % ABG Methemoglobin (0.0-3.0) % Jonathan Test A-a O2 Difference mm/Hg Respiratory Index Hgb O2 Saturation (95.0-98.0) % FiO2 % Sodium (132-148) mmol/L Potassium (3.6-5.2) mmol/L Chloride (98-107) mmol/L Carbon Dioxide (22-30) mmol/L Anion Gap (10-20) BUN (7-17) mg/dL Creatinine (0.7-1.2) mg/dL Est GFR ( Amer) Est GFR (Non-Af Amer) POC Glucose (mg/dL) 67 97 (65-110) mg/dL Random Glucose (65-105) mg/dL Calcium (8.6-10.4) mg/dl Phosphorus (2.5-4.5) mg/dL Magnesium (1.6-2.3) mg/dL Total Bilirubin (0.2-1.3) mg/dL AST (14-36) U/L ALT (9-52) U/L Alkaline Phosphatase (38-126) U/L Total Protein (6.3-8.3) g/dL Albumin (3.5-5.0) g/dL Globulin (2.2-3.9) gm/dL Albumin/Globulin Ratio (1.0-2.1) Laboratory Results - last 24 hr 05/16/18 05/16/18 05/16/18 05:31 18:02 18:04 WBC RBC Hgb Hct MCV MCH MCHC RDW Plt Count MPV Neut % (Auto) Lymph % (Auto) [place] % (Auto) Eos % (Auto) Baso % (Auto) Neut # (Auto) Lymph # (Auto) [place] # (Auto) Eos # (Auto) Baso # (Auto) Neutrophils % (Manual) Band Neutrophils % Lymphocytes % (Manual) Monocytes % (Manual) Platelet Estimate RBC Morphology PT INR Puncture Site pCO2 pO2 HCO3 ABG pH ABG Total CO2 ABG O2 Saturation ABG Base Excess ABG Hemoglobin ABG Carboxyhemoglobin POC ABG HHb (Measured) ABG Methemoglobin Jonathan Test A-a O2 Difference Respiratory Index Hgb O2 Saturation FiO2 Sodium Potassium Chloride Carbon Dioxide Anion Gap BUN Creatinine Est GFR ( Amer) Est GFR (Non-Af Amer) POC Glucose (mg/dL) 97 67 76 Random Glucose Calcium Phosphorus Magnesium Total Bilirubin AST ALT Alkaline Phosphatase Total Protein Albumin Globulin Albumin/Globulin Ratio 05/16/18 05/16/18 05/17/18 23:35 23:39 00:11 WBC RBC Hgb Hct MCV MCH MCHC RDW Plt Count MPV Neut % (Auto) Lymph % (Auto) [place] % (Auto) Eos % (Auto) Baso % (Auto) Neut # (Auto) Lymph # (Auto) [place] # (Auto) Eos # (Auto) Baso # (Auto) Neutrophils % (Manual) Band Neutrophils % Lymphocytes % (Manual) Monocytes % (Manual) Platelet Estimate RBC Morphology PT INR Puncture Site pCO2 pO2 HCO3 ABG pH ABG Total CO2 ABG O2 Saturation ABG Base Excess ABG Hemoglobin ABG Carboxyhemoglobin POC ABG HHb (Measured) ABG Methemoglobin Jonathan Test A-a O2 Difference Respiratory Index Hgb O2 Saturation FiO2 Sodium Potassium Chloride Carbon Dioxide Anion Gap BUN Creatinine Est GFR ( Amer) Est GFR (Non-Af Amer) POC Glucose (mg/dL) 54 L 68 107 Random Glucose Calcium Phosphorus Magnesium Total Bilirubin AST ALT Alkaline Phosphatase Total Protein Albumin Globulin Albumin/Globulin Ratio 05/17/18 05/17/18 05/17/18 04:54 11:38 13:28 WBC RBC Hgb Hct MCV MCH MCHC RDW Plt Count MPV Neut % (Auto) Lymph % (Auto) [place] % (Auto) Eos % (Auto) Baso % (Auto) Neut # (Auto) Lymph # (Auto) [place] # (Auto) Eos # (Auto) Baso # (Auto) Neutrophils % (Manual) Band Neutrophils % Lymphocytes % (Manual) Monocytes % (Manual) Platelet Estimate RBC Morphology PT INR Puncture Site A line pCO2 39 pO2 148 H HCO3 23.0 ABG pH 7.37 ABG Total CO2 23.7 ABG O2 Saturation 96.5 ABG Base Excess -2.5 L ABG Hemoglobin 9.2 L ABG Carboxyhemoglobin 0 L POC ABG HHb (Measured) 3.5 ABG Methemoglobin 0.0 Jonathan Test Na A-a O2 Difference 160.0 Respiratory Index 1.1 Hgb O2 Saturation 96.5 FiO2 50.0 Sodium Potassium Chloride Carbon Dioxide Anion Gap BUN Creatinine Est GFR ( Amer) Est GFR (Non-Af Amer) POC Glucose (mg/dL) 78 95 Random Glucose Calcium Phosphorus Magnesium Total Bilirubin AST ALT Alkaline Phosphatase Total Protein Albumin Globulin Albumin/Globulin Ratio 05/17/18 05/18/18 05/18/18 17:50 00:41 06:25 WBC 15.8 H RBC 2.99 L Hgb 8.6 L Hct 25.8 L MCV 86.5 MCH 28.8 MCHC 33.3 RDW 17.2 H Plt Count 135 MPV 7.1 L Neut % (Auto) 84.7 H Lymph % (Auto) 8.3 L [place] % (Auto) 6.0 Eos % (Auto) 0.7 Baso % (Auto) 0.3 Neut # (Auto) 13.4 H Lymph # (Auto) 1.3 [place] # (Auto) 0.9 H Eos # (Auto) 0.1 Baso # (Auto) 0.0 Neutrophils % (Manual) 79 H Band Neutrophils % 12 H* Lymphocytes % (Manual) 6 L Monocytes % (Manual) 3 Platelet Estimate Normal RBC Morphology Normal PT INR Puncture Site pCO2 pO2 HCO3 ABG pH ABG Total CO2 ABG O2 Saturation ABG Base Excess ABG Hemoglobin ABG Carboxyhemoglobin POC ABG HHb (Measured) ABG Methemoglobin Jonathan Test A-a O2 Difference Respiratory Index Hgb O2 Saturation FiO2 Sodium Potassium Chloride Carbon Dioxide Anion Gap BUN Creatinine Est GFR ( Amer) Est GFR (Non-Af Amer) POC Glucose (mg/dL) 91 182 H Random Glucose Calcium Phosphorus Magnesium Total Bilirubin AST ALT Alkaline Phosphatase Total Protein Albumin Globulin Albumin/Globulin Ratio 05/18/18 05/18/18 06:25 06:25 WBC RBC Hgb Hct MCV MCH MCHC RDW Plt Count MPV Neut % (Auto) Lymph % (Auto) [place] % (Auto) Eos % (Auto) Baso % (Auto) Neut # (Auto) Lymph # (Auto) [place] # (Auto) Eos # (Auto) Baso # (Auto) Neutrophils % (Manual) Band Neutrophils % Lymphocytes % (Manual) Monocytes % (Manual) Platelet Estimate RBC Morphology PT 14.3 H INR 1.3 Puncture Site pCO2 pO2 HCO3 ABG pH ABG Total CO2 ABG O2 Saturation ABG Base Excess ABG Hemoglobin ABG Carboxyhemoglobin POC ABG HHb (Measured) ABG Methemoglobin Jonathan Test A-a O2 Difference Respiratory Index Hgb O2 Saturation FiO2 Sodium 140 Potassium 3.0 L Chloride 106 Carbon Dioxide 31 H Anion Gap 6 L BUN 7 Creatinine 0.5 L Est GFR ( Amer) > 60 Est GFR (Non-Af Amer) > 60 POC Glucose (mg/dL) Random Glucose 117 H Calcium 7.1 L Phosphorus 1.9 L Magnesium 1.8 Total Bilirubin 2.5 H AST 68 H D ALT 133 H D Alkaline Phosphatase 118 Total Protein 4.3 L Albumin 2.2 L Globulin 2.1 L Albumin/Globulin Ratio 1.1 Fingerstick Blood Sugar Results: 122 Review of Systems - Review of Systems All systems: reviewed and no additional remarkable complaints except (as per hpi ) Critical Care Progress Note - Extremities/Vascular Does the Patient have a Central Venous Catheter?: Yes Does the Patient have a Srivastava Catheter?: Yes - Prophylaxis GI Prophylaxis GI: PPI - Prophylaxis DVT Prophylaxis DVT: Heparin SQ - Nutrition Nutrition: Nutrition Category Date Time Status NPO Diet [DIET] Diets 05/14/18 Breakfast Active Assessment/Plan - Assessment and Plan (Free Text) Assessment: This is a 37 year old female with PMH of recurrent SBOs s/p gastric bypass (2013 ), HTN, HLD, DM2, obesity, gastritis, asthma who was BIBA to ED on 05/14/18 with complaints of 1 day history of severe abdominal pain associated with 3 episodes of NBNB emesis. Abd/pelv CT was positive for SBO, with small amount of free fluid in the pelvis, enteritis, mesenteric edema and internal hernia. Pt noted to have BRB DC, with hypotension (placed on levophed gtt) and was taken to the OR for emergency ex lap for possible bowel ischemia. In the OR, internal hernia was reduced, lysis of adhesions, and pt was noted to have mesenteric ischemia of yenni limb. One JONAH drain was placed into pelvis, and pt was brought to ICU with open surgical abdominal wound, intubation, checmical paralysis, and sedation. Pt has plans to return to OR on 05/16/18. On 05/15 POD#1, pt anemic (hgb 7.7) and received 2 units of FFP and 2 units of pRBCs with adequate response. Levophed was discontinuated on 05/15 at 1pm. On 05/16, pt returned to OR for re- exploration, Small bowel resection of ileum, small bowel resection of Yenni limb with gastrojejunostomy, reversal of bypass, primary anastomosis of ileum-ileum, ileum-ileum, and ileum-jejunum, Gastrostomy tube in bypassed stomach, EGD. Pt is in the ICU for monitoring s/p abdominal surgery. Plan: Neuro: - continue to monitor for mental status changes - pt is AAOx3 at baseline - fentanyl has been discontinued - dilaudid 1 mg q6 for pain; morphine 1 mg prn breakthrough pain Cardio: - maintain MAP > 65 mmHg - metoprolol ivp for management of BP and tachycardia Pulm: - maintain spo2 >95% - place on bipap (09/15, 30%) due to increased work of breathing; f/u abg and cxr - CXR (05/18) shows limited left basilar atelectasis favored over infiltrate. Limited right perihilar patchy density now identified suspicious for infiltrate. - atrovent GI: - POD#4 s/p Exploratory laparotomy, Reduction of internal hernia, Lysis of adhesions, Drainage of abdominal collections, temporary abdominal closure ( fascia left open), EGD. - POD#2 s/p Re-exploration, Small bowel resection of ileum, small bowel resection of Yenni limb with gastrojejunostomy, reversal of bypass, primary anastomosis of ileum-ileum, ileum-ileum, and ileum-jejunum, Gastrostomy tube in bypassed stomach, EGD - wound-vac over midline vertical incision, bilateral min drains, g-tube in place - continue TPN - NPO - NGT on low int suction as per surgery - AST/ALT/ALP are downtrending (68/133/118) - protonix for pud ppx Heme: - H/h stable - PT is downtrending, but remains slightly elevated - heparin sc for vte ppx ID: - treat fever with hypothermia blanket/ice packs to forehead as liver enzymes are elevated - leukocytosis and bandemia is downtrending (15.8/12) - continue antibiotics as per ID - intra-operative peritoneal fluid gram stain prelim is negative - peritoneal fluid culture prelim showsgram negative jose growth - blood cultures x2 shows no growth after 3 days - urine culture final shows no growth - f/u ID recs Renal: - strict Is and Os - pt is producing about 1.4 mL/kg/hour of urine in the past 24 hours - maintain minimum of 0.5 mL/kg/hr - BUN/Cr is stable and wnl - maintain euvolemia - replete electrolytes as needed Endo: - maintain euglycemia - d5 1/2 ns has been discontinued - accucheck q6h Ppx: protonix for pud; heparin/SCDs for vte ppx Dispo: Pt will remain in ICU Case was reviewed and discussed with attending physician, Dr. Thomas <Alonso Thomas - Last Filed: 05/18/18 16:27> CCU Objective - Vital Signs / Intake & Output Vital Signs (Last 4 hours): Vital Signs Pulse BP BP 05/18/18 14:03 128 H 05/18/18 14:00 152/92 H 05/18/18 13:15 126 H 145/91 H 05/18/18 13:00 150/89 Intake and Output (Last 8hrs): Intake & Output 05/18/18 05/18/18 05/18/18 06:59 14:59 22:59 Intake Total 1261 862 42 Output Total 1120 745 Balance 141 117 42 Weight 191 lb Intake: Intake, IV Amount 1261 862 42 Right Distal Port 925 226 Internal Jugular Right Medial Port 300 Internal Jugular Right Proximal Port 336 336 42 Output: Drainage 70 Left Lower Abdomen 40 Right Lower Abdomen 30 Urine 1120 675 Urine, Voided 1120 675 - Medications Active Medications: Active Medications Generic Name Dose Route Start Last Admin Trade Name Freq PRN Reason Stop Dose Admin Dextrose 0 ml 05/15/18 08:36 05/16/18 23:40 Dextrose 50% Inj IV 50 ml STAT PRN Administration Hypoglycemia Protocol Protocol Dextrose 0 gm 05/15/18 08:36 Glutose 15 PO ONCE PRN Hypoglycemia Protocol Protocol Glucagon 0 mg 05/15/18 08:36 Glucagen Diagnostic Kit IM STAT PRN Hypoglycemia Protocol Protocol Heparin Sodium (Porcine) 5,000 units 05/17/18 10:00 05/18/18 10:13 Heparin SC 5,000 units Q12 KATELYN Administration Hydromorphone HCl 1 mg 05/18/18 14:30 05/18/18 14:57 Dilaudid IVP 1 mg Q4H KATELYN Administration Dextrose 1,000 mls @ 0 mls/hr 05/15/18 08:36 Dextrose 5% In Water 1000 Ml IV .Q0M PRN Hypoglycemia Protocol Protocol Per Protocol Metronidazole 500 mg in 100 mls @ 100 mls/hr 05/15/18 12:00 05/18/18 11:47 Flagyl IVPB 100 mls/hr Q8H KATELYN Administration Protocol Meropenem 1 gm/ Sodium 100 mls @ 100 mls/hr 05/15/18 11:00 05/18/18 11:02 Chloride IVPB 100 mls/hr Q8H KATELYN Administration Protocol Aztreonam 2 gm/ Sodium 100 mls @ 100 mls/hr 05/15/18 14:00 05/18/18 14:31 Chloride IVPB 100 mls/hr Q8H KATELYN Administration Protocol Multivitamins/Vitamin C 10 ml/ 1,011 mls @ 42 mls/hr 05/17/18 18:00 05/17/18 17:25 Chromium/Copper/Manganese/ IV 05/18/18 17:59 42 mls/hr Zinc 1 ml/ Amino Acids .Q24H ONE Administration Sodium Chloride 35 meq/ 1,035.5278 mls @ 42 mls/hr 05/18/18 18:00 Potassium Phosphate 30 mmole/ IV 05/19/18 17:59 Magnesium Sulfate 6 meq/ .Q24H ONE Calcium Chloride 330 mg/ Chromium/Copper/Manganese/Zinc 1 ml/ Multivitamins/Vitamin C 10 ml/ Heparin Sodium ( Porcine) 1,000 units/ Amino Acids Vancomycin/Sodium Chloride 1 gm in 200 mls @ 133.333 mls/hr 05/18/18 17:00 Vancomycin 1 Gm/Ns 200 Ml IVPB 05/23/18 17:01 Q12H KATELYN Protocol Ipratropium Eden 0.5 mg 05/17/18 14:00 05/18/18 14:00 Atrovent IH 0.5 mg RQ6 KATELYN Administration Lorazepam 0.5 mg 05/18/18 10:06 05/18/18 10:29 Ativan IVP 0.5 mg Q12 PRN Administration Anxiety Morphine Sulfate 1 mg 05/18/18 14:45 05/18/18 15:51 Morphine IVP 1 mg Q4 PRN Administration Pain, severe (8-10) Nicotine 1 patch 05/18/18 10:00 05/18/18 10:08 Nicoderm Cq TD 1 patch DAILY KATELYN Administration Ondansetron HCl 4 mg 05/14/18 02:57 Zofran Inj IVP Q4 PRN Nausea/Vomiting Pantoprazole Sodium 40 mg 05/16/18 10:00 05/18/18 09:15 Protonix Inj IVP 40 mg Q12H KATELYN Administration - Patient Studies Lab Studies: Microbiology Studies 05/15/18 12:51 Blood Culture - Preliminary Blood-Thru Central Line NO GROWTH AFTER 3 DAYS 05/15/18 12:51 Blood Culture - Preliminary Blood-Thru Central Line NO GROWTH AFTER 3 DAYS 05/14/18 16:56 Gram Stain - Final Peritoneal Fluid Body Fluid Culture - Preliminary Gram Negative Jose Lab Studies 05/18/18 05/18/18 05/18/18 Range/Units 15:39 11:27 06:25 WBC 15.0 H (4.8-10.8) K/uL RBC 3.14 L (3.80-5.20) Mil/uL Hgb 9.0 L (11.0-16.0) g/dL Hct 26.7 L (34.0-47.0) % MCV 85.2 (81.0-99.0) fL MCH 28.6 (27.0-31.0) pg MCHC 33.6 (33.0-37.0) g/dL RDW 16.6 H (11.5-14.5) % Plt Count 150 (130-400) K/uL MPV 7.1 L (7.2-11.7) fL Neut % (Auto) (50.0-75.0) % Lymph % (Auto) (20.0-40.0) % [place] % (Auto) (0.0-10.0) % Eos % (Auto) (0.0-4.0) % Baso % (Auto) (0.0-2.0) % Neut # (Auto) (1.8-7.0) K/uL Lymph # (Auto) (1.0-4.3) K/uL [place] # (Auto) (0.0-0.8) K/uL Eos # (Auto) (0.0-0.7) K/uL Baso # (Auto) (0.0-0.2) K/uL Neutrophils % (Manual) (50-75) % Band Neutrophils % (0-2) % Lymphocytes % (Manual) (20-40) % Monocytes % (Manual) (0-10) % Platelet Estimate (NORMAL) RBC Morphology PT 14.3 H (9.7-12.2) SECONDS INR 1.3 Sodium (132-148) mmol/L Potassium (3.6-5.2) mmol/L Chloride (98-107) mmol/L Carbon Dioxide (22-30) mmol/L Anion Gap (10-20) BUN (7-17) mg/dL Creatinine (0.7-1.2) mg/dL Est GFR ( Amer) Est GFR (Non-Af Amer) POC Glucose (mg/dL) 139 H (65-110) mg/dL Random Glucose (65-105) mg/dL Calcium (8.6-10.4) mg/dl Phosphorus (2.5-4.5) mg/dL Magnesium (1.6-2.3) mg/dL Total Bilirubin (0.2-1.3) mg/dL AST (14-36) U/L ALT (9-52) U/L Alkaline Phosphatase (38-126) U/L Total Protein (6.3-8.3) g/dL Albumin (3.5-5.0) g/dL Globulin (2.2-3.9) gm/dL Albumin/Globulin Ratio (1.0-2.1) 05/18/18 05/18/18 05/18/18 Range/Units 06:25 06:25 05:32 WBC 15.8 H (4.8-10.8) K/uL RBC 2.99 L (3.80-5.20) Mil/uL Hgb 8.6 L (11.0-16.0) g/dL Hct 25.8 L (34.0-47.0) % MCV 86.5 (81.0-99.0) fL MCH 28.8 (27.0-31.0) pg MCHC 33.3 (33.0-37.0) g/dL RDW 17.2 H (11.5-14.5) % Plt Count 135 (130-400) K/uL MPV 7.1 L (7.2-11.7) fL Neut % (Auto) 84.7 H (50.0-75.0) % Lymph % (Auto) 8.3 L (20.0-40.0) % [place] % (Auto) 6.0 (0.0-10.0) % Eos % (Auto) 0.7 (0.0-4.0) % Baso % (Auto) 0.3 (0.0-2.0) % Neut # (Auto) 13.4 H (1.8-7.0) K/uL Lymph # (Auto) 1.3 (1.0-4.3) K/uL [place] # (Auto) 0.9 H (0.0-0.8) K/uL Eos # (Auto) 0.1 (0.0-0.7) K/uL Baso # (Auto) 0.0 (0.0-0.2) K/uL Neutrophils % (Manual) 79 H (50-75) % Band Neutrophils % 12 H* (0-2) % Lymphocytes % (Manual) 6 L (20-40) % Monocytes % (Manual) 3 (0-10) % Platelet Estimate Normal (NORMAL) RBC Morphology Normal PT (9.7-12.2) SECONDS INR Sodium 140 (132-148) mmol/L Potassium 3.0 L (3.6-5.2) mmol/L Chloride 106 (98-107) mmol/L Carbon Dioxide 31 H (22-30) mmol/L Anion Gap 6 L (10-20) BUN 7 (7-17) mg/dL Creatinine 0.5 L (0.7-1.2) mg/dL Est GFR ( Amer) > 60 Est GFR (Non-Af Amer) > 60 POC Glucose (mg/dL) 122 H (65-110) mg/dL Random Glucose 117 H (65-105) mg/dL Calcium 7.1 L (8.6-10.4) mg/dl Phosphorus 1.9 L (2.5-4.5) mg/dL Magnesium 1.8 (1.6-2.3) mg/dL Total Bilirubin 2.5 H (0.2-1.3) mg/dL AST 68 H D (14-36) U/L ALT 133 H D (9-52) U/L Alkaline Phosphatase 118 (38-126) U/L Total Protein 4.3 L (6.3-8.3) g/dL Albumin 2.2 L (3.5-5.0) g/dL Globulin 2.1 L (2.2-3.9) gm/dL Albumin/Globulin Ratio 1.1 (1.0-2.1) 05/18/18 05/17/18 Range/Units 00:41 17:50 WBC (4.8-10.8) K/uL RBC (3.80-5.20) Mil/uL Hgb (11.0-16.0) g/dL Hct (34.0-47.0) % MCV (81.0-99.0) fL MCH (27.0-31.0) pg MCHC (33.0-37.0) g/dL RDW (11.5-14.5) % Plt Count (130-400) K/uL MPV (7.2-11.7) fL Neut % (Auto) (50.0-75.0) % Lymph % (Auto) (20.0-40.0) % [place] % (Auto) (0.0-10.0) % Eos % (Auto) (0.0-4.0) % Baso % (Auto) (0.0-2.0) % Neut # (Auto) (1.8-7.0) K/uL Lymph # (Auto) (1.0-4.3) K/uL [place] # (Auto) (0.0-0.8) K/uL Eos # (Auto) (0.0-0.7) K/uL Baso # (Auto) (0.0-0.2) K/uL Neutrophils % (Manual) (50-75) % Band Neutrophils % (0-2) % Lymphocytes % (Manual) (20-40) % Monocytes % (Manual) (0-10) % Platelet Estimate (NORMAL) RBC Morphology PT (9.7-12.2) SECONDS INR Sodium (132-148) mmol/L Potassium (3.6-5.2) mmol/L Chloride (98-107) mmol/L Carbon Dioxide (22-30) mmol/L Anion Gap (10-20) BUN (7-17) mg/dL Creatinine (0.7-1.2) mg/dL Est GFR ( Amer) Est GFR (Non-Af Amer) POC Glucose (mg/dL) 182 H 91 (65-110) mg/dL Random Glucose (65-105) mg/dL Calcium (8.6-10.4) mg/dl Phosphorus (2.5-4.5) mg/dL Magnesium (1.6-2.3) mg/dL Total Bilirubin (0.2-1.3) mg/dL AST (14-36) U/L ALT (9-52) U/L Alkaline Phosphatase (38-126) U/L Total Protein (6.3-8.3) g/dL Albumin (3.5-5.0) g/dL Globulin (2.2-3.9) gm/dL Albumin/Globulin Ratio (1.0-2.1) Laboratory Results - last 24 hr 05/17/18 05/18/18 05/18/18 17:50 00:41 05:32 WBC RBC Hgb Hct MCV MCH MCHC RDW Plt Count MPV Neut % (Auto) Lymph % (Auto) [place] % (Auto) Eos % (Auto) Baso % (Auto) Neut # (Auto) Lymph # (Auto) [place] # (Auto) Eos # (Auto) Baso # (Auto) Neutrophils % (Manual) Band Neutrophils % Lymphocytes % (Manual) Monocytes % (Manual) Platelet Estimate RBC Morphology PT INR Sodium Potassium Chloride Carbon Dioxide Anion Gap BUN Creatinine Est GFR ( Amer) Est GFR (Non-Af Amer) POC Glucose (mg/dL) 91 182 H 122 H Random Glucose Calcium Phosphorus Magnesium Total Bilirubin AST ALT Alkaline Phosphatase Total Protein Albumin Globulin Albumin/Globulin Ratio 05/18/18 05/18/18 05/18/18 06:25 06:25 06:25 WBC 15.8 H RBC 2.99 L Hgb 8.6 L Hct 25.8 L MCV 86.5 MCH 28.8 MCHC 33.3 RDW 17.2 H Plt Count 135 MPV 7.1 L Neut % (Auto) 84.7 H Lymph % (Auto) 8.3 L [place] % (Auto) 6.0 Eos % (Auto) 0.7 Baso % (Auto) 0.3 Neut # (Auto) 13.4 H Lymph # (Auto) 1.3 [place] # (Auto) 0.9 H Eos # (Auto) 0.1 Baso # (Auto) 0.0 Neutrophils % (Manual) 79 H Band Neutrophils % 12 H* Lymphocytes % (Manual) 6 L Monocytes % (Manual) 3 Platelet Estimate Normal RBC Morphology Normal PT 14.3 H INR 1.3 Sodium 140 Potassium 3.0 L Chloride 106 Carbon Dioxide 31 H Anion Gap 6 L BUN 7 Creatinine 0.5 L Est GFR ( Amer) > 60 Est GFR (Non-Af Amer) > 60 POC Glucose (mg/dL) Random Glucose 117 H Calcium 7.1 L Phosphorus 1.9 L Magnesium 1.8 Total Bilirubin 2.5 H AST 68 H D ALT 133 H D Alkaline Phosphatase 118 Total Protein 4.3 L Albumin 2.2 L Globulin 2.1 L Albumin/Globulin Ratio 1.1 05/18/18 05/18/18 11:27 15:39 WBC 15.0 H RBC 3.14 L Hgb 9.0 L Hct 26.7 L MCV 85.2 MCH 28.6 MCHC 33.6 RDW 16.6 H Plt Count 150 MPV 7.1 L Neut % (Auto) Lymph % (Auto) [place] % (Auto) Eos % (Auto) Baso % (Auto) Neut # (Auto) Lymph # (Auto) [place] # (Auto) Eos # (Auto) Baso # (Auto) Neutrophils % (Manual) Band Neutrophils % Lymphocytes % (Manual) Monocytes % (Manual) Platelet Estimate RBC Morphology PT INR Sodium Potassium Chloride Carbon Dioxide Anion Gap BUN Creatinine Est GFR ( Amer) Est GFR (Non-Af Amer) POC Glucose (mg/dL) 139 H Random Glucose Calcium Phosphorus Magnesium Total Bilirubin AST ALT Alkaline Phosphatase Total Protein Albumin Globulin Albumin/Globulin Ratio Critical Care Progress Note - Nutrition Nutrition: Nutrition Category Date Time Status NPO Diet [DIET] Diets 05/14/18 Breakfast Active Attending/Attestation - Attestation I have personally seen and examined this patient.: Yes I have fully participated in the care of the patient.: Yes I have reviewed all pertinent clinical information: Yes Notes (Text): 05/18/18 16:25 patient seen and examined in the intensive care unit. Patient is awake and responsive serosanguineous drainage from the JONAH drain Normotensive in no respiratory distress Complaining of abdominal pain Febrile on multiple antibiotics Continue ICU monitoring Continue intake and output 40 mg Lasix given. follow-up CBC and transfuse as necessary
[2018-05-18] MEDS ORDERED: Potassium Phosphate 20 MMOLE in Sodium Chloride 0.9% 250 ML IV ONE (10:00)
--- NOTE | 2018-05-18 10:07 | RAD ---
Date of service: 05/18/2018 HISTORY: r/o infiltrate COMPARISON: Portable chest 05/17/2018. FINDINGS: Endotracheal tube is not identified. Clinically correlate. Nasogastric tube again is seen terminating at the distal esophagus. Advancement into the stomach is recommended follow-up by confirmation radiography. Right center venous line unchanged. LUNGS: Borderline patchy atelectasis left base. Limited patchy right perihilar and infiltrate suspected. PLEURA: No significant pleural effusion identified, no pneumothorax apparent. CARDIOVASCULAR: Stable cardiac silhouette. No pulmonary vascular congestion. OSSEOUS STRUCTURES: No significant abnormalities. VISUALIZED UPPER ABDOMEN: Surgical clips again noted left upper quadrant abdomen. OTHER FINDINGS: None. IMPRESSION: Limited left basilar atelectasis favored over infiltrate. Limited right perihilar patchy density now identified suspicious for infiltrate. ET tube not identified.
--- NOTE | 2018-05-18 12:03 | CARD ---
APPROVED REPORT Date of service: 05/13/2018 EKG Measurement Heart [id number] <Conclusion> Normal sinus rhythm with sinus arrhythmia Possible Left atrial enlargement Cannot rule out Anterior infarct, age undetermined Abnormal ECG
[2018-05-18] MEDS ORDERED: HYDROmorphone 1 mg/ml ISec IVP SCH (14:30)
[2018-05-18 15:42] LABS: MEAN CELL VOLUME 85.2 fL (81.0-99.0); MEAN CORPUSCULAR HEMOGLOBIN 28.6 pg (27.0-31.0); MEAN CORPUSCULAR HGB CONC 33.6 g/dL (33.0-37.0); MEAN PLATELET VOLUME 7.1 fL (7.2-11.7); RBC 3.14 Mil/uL (3.80-5.20); RED CELL DISTRIBUTION WIDTH 16.6 % (11.5-14.5)
--- NOTE | 2018-05-18 17:26 | CP.PCM.PN ---
<Maggie Dailey - Last Filed: 05/18/18 17:37> Subjective - Date & Time of Evaluation Date of Evaluation: 05/18/18 Time of Evaluation: 07:00 - Subjective Subjective: GENERAL SURGERY PROGRESS NOTE FOR DR. HARLEY Patient seen and examined at bedside in ICU. No acute events overnight other than fever of 100.3. Pt was extubated yesterday and is AAOx3. She vomited once this AM. Reports pain in her abdomen. No flatus or BM. Overnight outputs: NG tube: minimal Gastrostomy tube: 250cc L Sky: 170cc R sky: 120cc Objective - Vital Signs/Intake and Output Vital Signs (last 24 hours): Temp Pulse Resp BP Pulse Ox 100.9 F H 121 H 23 130/97 H 100 05/18/18 16:00 05/18/18 17:00 05/18/18 17:00 05/18/18 16:56 05/18/18 17:00 Intake and Output: 05/18/18 05/18/18 06:59 18:59 Intake Total 1933.7 946 Output Total 1870 3645 Balance 63.7 -2699 - Medications Medications: Current Medications Dextrose (Dextrose 50% Inj) 0 ml IV STAT PRN; Protocol PRN Reason: Hypoglycemia Protocol Last Admin: 05/16/18 23:40 Dose: 50 ml Dextrose (Glutose 15) 0 gm PO ONCE PRN; Protocol PRN Reason: Hypoglycemia Protocol Enoxaparin Sodium (Lovenox) 40 mg SC DAILY KATELYN Glucagon (Glucagen Diagnostic Kit) 0 mg IM STAT PRN; Protocol PRN Reason: Hypoglycemia Protocol Hydromorphone HCl (Dilaudid) 1 mg IVP Q2H KATELYN Dextrose (Dextrose 5% In Water 1000 Ml) 1,000 mls @ 0 mls/hr IV .Q0M PRN; Protocol; Per Protocol PRN Reason: Hypoglycemia Protocol Metronidazole (Flagyl) 500 mg in 100 mls @ 100 mls/hr IVPB Q8H KATELYN PRN Reason: Protocol Last Admin: 05/18/18 11:47 Dose: 100 mls/hr Meropenem 1 gm/ Sodium (Chloride) 100 mls @ 100 mls/hr IVPB Q8H KATELYN PRN Reason: Protocol Last Admin: 05/18/18 11:02 Dose: 100 mls/hr Aztreonam 2 gm/ Sodium (Chloride) 100 mls @ 100 mls/hr IVPB Q8H [facility] PRN Reason: Protocol Last Admin: 05/18/18 14:31 Dose: 100 mls/hr Multivitamins/Vitamin C 10 ml/Chromium/Copper/Manganese/Zinc 1 ml/ Amino Acids 1,011 mls @ 42 mls/hr IV .Q24H ONE Stop: 05/18/18 17:59 Last Admin: 05/17/18 17:25 Dose: 42 mls/hr Sodium Chloride 35 meq/Potassium Phosphate 30 mmole/Magnesium Sulfate 6 meq/ Calcium Chloride 330 mg/Chromium/Copper/Manganese/Zinc 1 ml/ Multivitamins/ Vitamin C 10 ml/ Heparin Sodium ( Porcine) 1,000 units/ Amino Acids 1,035.5278 mls @ 42 mls/hr IV .Q24H ONE Stop: 05/19/18 17:59 Vancomycin/Sodium Chloride (Vancomycin 1 Gm/Ns 200 Ml) 1 gm in 200 mls @ 133.333 mls/hr IVPB Q12H [facility] PRN Reason: Protocol Stop: 05/23/18 17:01 Ipratropium Harper (Atrovent) 0.5 mg IH RQ6 [facility] Last Admin: 05/18/18 14:00 Dose: 0.5 mg Lorazepam (Ativan) 0.5 mg IVP Q12 PRN PRN Reason: Anxiety Last Admin: 05/18/18 10:29 Dose: 0.5 mg Morphine Sulfate (Morphine) 1 mg IVP Q4 PRN PRN Reason: Pain, severe (8-10) Last Admin: 05/18/18 15:51 Dose: 1 mg Nicotine (Nicoderm Cq) 1 patch TD DAILY [facility] Last Admin: 05/18/18 10:08 Dose: 1 patch Ondansetron HCl (Zofran Inj) 4 mg IVP Q4 PRN PRN Reason: Nausea/Vomiting Pantoprazole Sodium (Protonix Inj) 40 mg IVP Q12H [facility] Last Admin: 05/18/18 09:15 Dose: 40 mg - Labs Labs: 05/18/18 15:39 05/18/18 06:25 PT 14.3 SECONDS (9.7-12.2) H 05/18/18 06:25 INR 1.3 05/18/18 06:25 APTT 33 SECONDS (21-34) 05/16/18 18:56 - Constitutional Appears: Non-toxic, No Acute Distress - Respiratory Exam Respiratory Exam: NORMAL BREATHING PATTERN. absent: Respiratory Distress - Cardiovascular Exam Cardiovascular Exam: Tachycardia - GI/Abdominal Exam GI & Abdominal Exam: Soft, Tenderness. absent: Distended, Firm, Guarding, Rigid Additional comments: Wound vac in place to suction @125mmhg Bilateral Sky drains in place with serous output Gastrostomy tube in place to gravity NG tube in place - Neurological Exam Neurological Exam: Alert, Awake, Oriented x3 - Psychiatric Exam Psychiatric exam: Normal Affect, Normal Mood - Skin Skin Exam: Dry, Normal Color, Warm Assessment and Plan - Assessment and Plan (Free Text) Assessment: 37yo F with PMHx of yenni-en-Y gastric bypass in 2013 now with bowel ischemia secondary to internal hernia. POD#4 s/p Exploratory laparotomy, Reduction of internal hernia, DANNI, Drainage of abdominal collections, temporary abdominal closure (fascia left open), EGD. POD#2 s/p Re-exploration, Small bowel resection of ileum, small bowel resection of Yenni limb with gastrojejunostomy, reversal of bypass, primary anastomosis of ileum-ileum, ileum-ileum, and ileum-jejunum, Gastrostomy tube in bypassed stomach, EGD Outputs: NG tube in gastric pouch: minimal Gastrostomy tube in bypassed stomach: 250cc from 7p-7a Right Sky: 120cc serous from 7p-7a Left Sky: 170cc serous from 7p-7a - Low grade fevers, remains tachycardic, off pressors since Wednesday - Leukocytosis improved to 15.8 from 17.1, on Flagyl, Aztreonam, Merrem per ID - Cx from OR of peritoneal fluid: gram negative rods - Blood & Urine cx negative - Monitor urine output to keep >0.5mg/kg/hr - Continue strict NPO w/ NG tube to low intermittent suction in gastric pouch and gastrostomy tube to gravity - Possible trickle feeds through G tube on Wednesday - Started on TPN by ICU team - DVT Prophylaxis: Lovenox - Will need surgery in 4-6 weeks to restore GI continuity - Discussed plan with Dr. Cricket Dailey PGY-4 <Gómez Harley - Last Filed: 05/29/18 19:10> Objective - Vital Signs/Intake and Output Vital Signs (last 24 hours): Temp Pulse Resp BP Pulse Ox 98.2 F 123 H 20 102/72 97 05/29/18 15:00 05/29/18 15:00 05/29/18 15:00 05/29/18 15:00 05/29/18 15:00 Intake and Output: 05/29/18 05/30/18 18:59 06:59 Intake Total 600 Output Total 3000 Balance -2400 - Medications Medications: Current Medications Acetaminophen (Tylenol 650mg/20.3ml Solution Ud) 975 mg GT Q8 [facility] Last Admin: 05/29/18 15:59 Dose: 975 mg Cholestyramine Resin (Questran) 4 gm PO BID [facility] Last Admin: 05/29/18 11:21 Dose: 4 gm Dextrose (Dextrose 50% Inj) 0 ml IV STAT PRN; Protocol PRN Reason: Hypoglycemia Protocol Last Admin: 05/16/18 23:40 Dose: 50 ml Dextrose (Glutose 15) 0 gm PO ONCE PRN; Protocol PRN Reason: Hypoglycemia Protocol Enoxaparin Sodium (Lovenox) 40 mg SC DAILY [facility] Last Admin: 05/29/18 10:23 Dose: 40 mg Fentanyl (Duragesic) 1 patch TD Q72H [facility] Last Admin: 05/28/18 13:49 Dose: 1 patch Glucagon (Glucagen Diagnostic Kit) 0 mg IM STAT PRN; Protocol PRN Reason: Hypoglycemia Protocol Hydrocortisone (Cortizone 1% Cream) 0 gm TOP TID PRN PRN Reason: Rash Hydromorphone HCl (Dilaudid) 1 mg IVP Q3 PRN PRN Reason: Pain, SEVERE (8-10) Last Admin: 05/29/18 17:48 Dose: 1 mg Dextrose (Dextrose 5% In Water 1000 Ml) 1,000 mls @ 0 mls/hr IV .Q0M PRN; Protocol; Per Protocol PRN Reason: Hypoglycemia Protocol Metronidazole (Flagyl) 500 mg in 100 mls @ 100 mls/hr IVPB Q8H [facility] PRN Reason: Protocol Last Admin: 05/29/18 12:27 Dose: 100 mls/hr Fluconazole 100 mg/ (Miscellaneous) 50 mls @ 100 mls/hr IVPB Q24H [facility] PRN Reason: Protocol Last Admin: 05/29/18 13:05 Dose: 100 mls/hr Insulin Human Regular (Novolin R) 0 unit SC Q6 [facility] PRN Reason: Protocol Last Admin: 05/29/18 19:03 Dose: Not Given Ipratropium Harper (Atrovent) 0.5 mg IH RQ6 [facility] Last Admin: 05/29/18 13:04 Dose: Not Given Lactobacillus Acidophilus (Bacid Acidophilus) 1 cap PEG BID [facility]N Last Admin: 05/29/18 10:23 Dose: 1 cap Loperamide HCl (Imodium) 1 mg PO Q2H PRN PRN Reason: Diarrhea Last Admin: 05/29/18 12:32 Dose: 1 mg Lorazepam (Ativan) 0.5 mg IVP Q8H PRN PRN Reason: Anxiety Last Admin: 05/29/18 08:46 Dose: 0.5 mg Metoprolol Tartrate (Lopressor) 50 mg NG BID [facility] Last Admin: 05/29/18 10:26 Dose: 50 mg Nicotine (Nicoderm Cq) 1 patch TD DAILY [facility] Last Admin: 05/29/18 10:23 Dose: 1 patch Pantoprazole Sodium (Protonix Inj) 40 mg IVP DAILY [facility] Last Admin: 05/29/18 10:22 Dose: 40 mg Saliva Substitute (Mouth Kote 236 Ml) 0 ml MM Q6 PRN PRN Reason: Dry mouth Vitamin A (Vitamin A & D Oint Ud Foilpak) 1 ea TOP Q8 PRN PRN Reason: dry lips Last Admin: 05/20/18 11:10 Dose: 1 ea - Labs Labs: 05/29/18 08:21 05/29/18 08:21 PT 16.0 SECONDS (9.7-12.2) H 05/26/18 06:32 INR 1.5 05/26/18 06:32 APTT 33 SECONDS (21-34) 05/25/18 06:16 Attending/Attestation - Attestation I have personally seen and examined this patient.: Yes I have fully participated in the care of the patient.: Yes I have reviewed all pertinent clinical information, including history, physical exam and plan: Yes Notes (Text): Pt was seen and examined at bedside Agree with above note and assessment Pt is improving clinically Labs and radiology reviewed C.w current mx as per ICU team Plan d.w pt and family Risk and benefit explained in detail.
[2018-05-18] MEDS: Vancomycin 1 gm/NS 200 ml 1 GM/200 ML BAG IVPB SCH (17:30)
[2018-05-18] MEDS ORDERED: TPN #2 IV ONE (18:00)
--- NOTE | 2018-05-18 18:16 | CP.PCM.PN ---
Subjective - Date & Time of Evaluation Date of Evaluation: 05/18/18 Time of Evaluation: 14:15 - Subjective Subjective: Hospitalist Progress Note Patient was seen and examined at 2:15 PM 05/18/18 ICU Bed 1 Please see Assessment and Plans for details. Currently upon FULL ROS: Abdominal Pain diffuse and requesting more pain medication General: AAOx3, Does not appear to be level of pain that she is describing () HEENT: PERRLA, NCA, Nasal Turbinates and oral mucosa are dry, NO Pharyneal erythema/exudate, NO thyromegly, NO lympadenopathy Cardio: NS1 and NS2, NO M/R/G Respiratory: Few scattered course breath sounds with expiration diffusely GI: 2 Sky Drains and G Tubes in place, Soft, ND, BSx4 are dreased Ext: Pulses are strong and equal Bilateral UE and LE, NO edema, Capillary Refill is 2 second Neuro: CN II through XII are grossly intact (1) Ischemic bowel disease Assessment & Plan: * Dr. Harley (surgery) on the case-->help appreciated * Dr. Samara Denise (Surgery) on the case-->help appreciated * Preoperative/intraoperative/postoperative management per surgery * Dr. Alvarado (GI) on the case-->help appreciated * Dr. Rivera (ID) on the case-->help appreciated * Chest xray (05/14/18): no infiltrate, pleural effusion, or pneumothorax b/l. Diminished inspiratory volume question. No acute cardiovascular disease. * Lactic: 3.6 (prior OR)-->2.4 (post OR)-->2.3-->1.5-->1.6-->0.9 * Patient has had 2 bloody bowel movements started 05/14/18. Patient's rectal: blood. She had reported abdominal pain has worsening since night of admission. Patient required emergent surgical intervention on 05/14/18 and transferred to ICU. * Per operative note (05/14/18): Diagnostic laparoscopy, Exploratory laparotomy, Reduction of internal hernia, Lysis of adhesions, Drainage of abdominal collections, temporary abdominal closure, EGD * Ischemia of yenni limb, internal hernia. Largo drain stitched to distal common limb * ICU evaluation noted: Patient underwent emergency laparotomy for possible ischemic bowel. Patient had GI bleed. In the operating room patient underwent extensive exploratory laparotomy. Significant gangrene of the small bowel noted. Hernia was identified, which was reduced.After that the significant improvement in the vasculature noted. * Patient underwent surgery again on 05/16/18.Re-exploration, Small bowel resection of ileum, small bowel resection of Yenni limb with gastrojejunostomy, reversal of bypass, primary anastomosis of ileum-ileum, ileum-ileum, and ileum- jejunum, Gastrostomy tube in bypassed stomach, EGD * Per surgery, monitor for abdominal compartment syndrome * Recommend TPN. * Will need f/u surgery in 4-6 weeks to restore GI * Patient extubated today 05/16/18. Patient is off Propofol. Patient is currently on Dialudid 1 mg IV Q2H * Drains included: NGT Tube, right sky, left sky, gastrostomy tube. * IV abx: * Aztreonam 2 gm IVPB Q8H (active since 05/15/18) * Flagyl 500mg IVPB Q8H (active since 05/15/18) * Meropenem 1 gm IVPB Q8H (active 05/15/18) * Cultures: * Peritoneal Fluid : no growth after 2days * Blood culture (05/15/18): no growth after 48 hours X2 * Urine culture: no growth Status: Acute (2) Small bowel obstruction Assessment & Plan: * Secondary to hernia * CT abdomen/Pelvis (05/13/18): Writhing appearance of mesentric vessels. Mesentric edema. No evidence of bowel obstruction. Whirling appearance of mesentric vessels is nonspecific. Prominent mesentric lymph nodes. Mesentric edema. (preop) * Patient has had 2 bloody bowel movements started 05/14/18. Patient's rectal: blood. She had reported abdominal pain has worsening since night of admission. Patient required emergent surgical intervention on 05/14/18 and transferred to ICU. Patient will need a second surgery likely tomorrow on 05/16/18. * Per operative note (05/14/18): Diagnostic laparoscopy, Exploratory laparotomy, Reduction of internal hernia, Lysis of adhesions, Drainage of abdominal collections, temporary abdominal closure, EGD * Ischemia of yenni limb, internal hernia. Largo drain stitched to distal common limb * ICU evaluation noted: Patient underwent emergency laparotomy for possible ischemic bowel. Patient had GI bleed. In the operating room patient underwent extensive exploratory laparotomy. Significant gangrene of the small bowel noted. Hernia was identified, which was reduced.After that the significant improvement in the vasculature noted. But there is still a segment of bowel not healthy (portion of the alimentary canal from prior gastric bypass surgery--> clarified with surgery resident), * Patient underwent surgery again on 05/16/18.Re-exploration, Small bowel resection of ileum, small bowel resection of Yenni limb with gastrojejunostomy, reversal of bypass, primary anastomosis of ileum-ileum, ileum-ileum, and ileum- jejunum, Gastrostomy tube in bypassed stomach, EGD * Per surgery, monitor for abdominal compartment syndrome * Recommend TPN. * Will need f/u surgery in 4-6 weeks to restore GI Status: Acute (3) Obesity (BMI 30-39.9) Assessment & Plan: * Status post gastric bypass surgery in 2013 * Operative note (2013): Yenni-en-Y gastric bypass surgery Status: Acute (4) Status post gastric bypass for obesity Assessment & Plan: * Status post gastric bypass 2013 * Operative note (2013): Yenni-en-Y gastric bypass surgery Status: Acute (5) History of Asthma Assessment & Plan: * Patient not in acute exacerbation (6) Leukocytosis Assessment & Plan: * Likely secondary to ischemic bowel secondary to small bowel obstruction () and had surgery (05/16/18) * IV abx: * Aztreonam 2 gm IVPB Q8H (Active since 05/15/18) * Flagyl 500mg IVPB Q8H (active since 05/15/18) * Meropenem 1 gm IVPB Q8H (active 05/15/18) * Cultures: * Peritoneal Fluid (05/14/18) : Gram negative rods * Blood culture (05/15/18): NO growth to date * Urine culture (05/15/18): NO growth (7) Diabetes Mellitus (Type 2); controlled Assessment & Plan: * From prior note: * Admittedly non-compliant - has not taken Januvia for one year * Accuchecks Q6H * Hypoglycemic protocol * HbA1c - 6.3 (03/10/17) * hgba1c: 02/15 * History of gastric bypass surgery (8) Hx of HTN (hypertension) Assessment & Plan: * Since Gastric Bypass has not taken meds (9) Hx of Hypothyroid Assessment & Plan: * From prior note: * Pt admitted non-compliance (10) Hypercholesterolemia Assessment & Plan: * From prior note: * Pt not taking meds * LDL 138, HDL 67, Tchol 220, Trig 112 * History of gastric bypass surgery (11) Anxiety Assessment & Plan: * Patient was taking Xanax for anxiety noted in prior note * Ativan 0.5 mg IV PRN Anxiety (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 Assessment & Plan: * 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 and from my prior note from last hospitalization (13) Smoker Assessment & Plan: * From my prior note: 1ppd x 20 yrs, 1/2 ppd x 3 yrs * Nicotine Patch 21 mg TD 1x/day (14) Prophylactic measure Assessment & Plan: * D51/2 125cc/hr * Heparin 5000 units subq12 dvt ppx * RIJ TLC 05/14/18 * NGT Tube * Srivastava * Off pressor * Off Paralytic * Off Fentanyl * Protonix 40mg IV Q12H * Zofran 4 mg IV Q4H PRN n/v * Florastor 250 mg NGT 2x/day * Extubated 05/16/18 Status: Acute Objective - Vital Signs/Intake and Output Vital Signs (last 24 hours): Temp Pulse Resp BP Pulse Ox 100.9 F H 121 H 23 130/97 H 100 05/18/18 16:00 05/18/18 17:00 05/18/18 17:00 05/18/18 16:56 05/18/18 17:00 Intake and Output: 05/18/18 05/18/18 06:59 18:59 Intake Total 1933.7 1214 Output Total 1870 3820 Balance 63.7 -2606 - Medications Medications: Current Medications Dextrose (Dextrose 50% Inj) 0 ml IV STAT PRN; Protocol PRN Reason: Hypoglycemia Protocol Last Admin: 05/16/18 23:40 Dose: 50 ml Dextrose (Glutose 15) 0 gm PO ONCE PRN; Protocol PRN Reason: Hypoglycemia Protocol Enoxaparin Sodium (Lovenox) 40 mg SC DAILY [facility] Glucagon (Glucagen Diagnostic Kit) 0 mg IM STAT PRN; Protocol PRN Reason: Hypoglycemia Protocol Hydromorphone HCl (Dilaudid) 1 mg IVP Q2H [facility] Dextrose (Dextrose 5% In Water 1000 Ml) 1,000 mls @ 0 mls/hr IV .Q0M PRN; Protocol; Per Protocol PRN Reason: Hypoglycemia Protocol Metronidazole (Flagyl) 500 mg in 100 mls @ 100 mls/hr IVPB Q8H [facility] PRN Reason: Protocol Last Admin: 05/18/18 11:47 Dose: 100 mls/hr Meropenem 1 gm/ Sodium (Chloride) 100 mls @ 100 mls/hr IVPB Q8H [facility] PRN Reason: Protocol Last Admin: 05/18/18 11:02 Dose: 100 mls/hr Aztreonam 2 gm/ Sodium (Chloride) 100 mls @ 100 mls/hr IVPB Q8H [facility] PRN Reason: Protocol Last Admin: 05/18/18 14:31 Dose: 100 mls/hr Sodium Chloride 35 meq/Potassium Phosphate 30 mmole/Magnesium Sulfate 6 meq/ Calcium Chloride 330 mg/Chromium/Copper/Manganese/Zinc 1 ml/ Multivitamins/ Vitamin C 10 ml/ Heparin Sodium ( Porcine) 1,000 units/ Amino Acids 1,035.5278 mls @ 42 mls/hr IV .Q24H ONE Stop: 05/19/18 17:59 Vancomycin/Sodium Chloride (Vancomycin 1 Gm/Ns 200 Ml) 1 gm in 200 mls @ 133.333 mls/hr IVPB Q12H [facility] PRN Reason: Protocol Stop: 05/23/18 17:01 Ipratropium [place] (Atrovent) 0.5 mg IH RQ6 [facility] Last Admin: 05/18/18 14:00 Dose: 0.5 mg Lorazepam (Ativan) 0.5 mg IVP Q12 PRN PRN Reason: Anxiety Last Admin: 05/18/18 10:29 Dose: 0.5 mg Morphine Sulfate (Morphine) 1 mg IVP Q4 PRN PRN Reason: Pain, severe (8-10) Last Admin: 05/18/18 15:51 Dose: 1 mg Nicotine (Nicoderm Cq) 1 patch TD DAILY [facility] Last Admin: 05/18/18 10:08 Dose: 1 patch Ondansetron HCl (Zofran Inj) 4 mg IVP Q4 PRN PRN Reason: Nausea/Vomiting Pantoprazole Sodium (Protonix Inj) 40 mg IVP Q12H [facility] Last Admin: 05/18/18 09:15 Dose: 40 mg - Labs Labs: 05/18/18 15:39 05/18/18 06:25 PT 14.3 SECONDS (9.7-12.2) H 05/18/18 06:25 INR 1.3 05/18/18 06:25 APTT 33 SECONDS (21-34) 05/16/18 18:56
--- NOTE | 2018-05-18 22:20 | CP.PCM.PN ---
Subjective - Date & Time of Evaluation Date of Evaluation: 05/18/18 Time of Evaluation: 15:00 - Subjective Subjective: dictated Objective - Vital Signs/Intake and Output Vital Signs (last 24 hours): Temp Pulse Resp BP Pulse Ox 100 F H 114 H 19 137/94 H 100 05/18/18 20:00 05/18/18 22:00 05/18/18 22:00 05/18/18 21:56 05/18/18 22:00 Intake and Output: 05/18/18 05/19/18 18:59 06:59 Intake Total 1456 468 Output Total 6000 340 Balance -4544 128 - Medications Medications: Current Medications Dextrose (Dextrose 50% Inj) 0 ml IV STAT PRN; Protocol PRN Reason: Hypoglycemia Protocol Last Admin: 05/16/18 23:40 Dose: 50 ml Dextrose (Glutose 15) 0 gm PO ONCE PRN; Protocol PRN Reason: Hypoglycemia Protocol Enoxaparin Sodium (Lovenox) 40 mg SC DAILY [facility] Glucagon (Glucagen Diagnostic Kit) 0 mg IM STAT PRN; Protocol PRN Reason: Hypoglycemia Protocol Hydrocortisone (Cortizone 1% Cream) 0 gm TOP TID [facility] Hydromorphone HCl (Dilaudid) 1 mg IVP Q2H [facility] Last Admin: 05/18/18 20:31 Dose: 1 mg Dextrose (Dextrose 5% In Water 1000 Ml) 1,000 mls @ 0 mls/hr IV .Q0M PRN; Protocol; Per Protocol PRN Reason: Hypoglycemia Protocol Metronidazole (Flagyl) 500 mg in 100 mls @ 100 mls/hr IVPB Q8H [facility] PRN Reason: Protocol Last Admin: 05/18/18 19:51 Dose: 100 mls/hr Meropenem 1 gm/ Sodium (Chloride) 100 mls @ 100 mls/hr IVPB Q8H [facility] PRN Reason: Protocol Last Admin: 05/18/18 18:36 Dose: 100 mls/hr Aztreonam 2 gm/ Sodium (Chloride) 100 mls @ 100 mls/hr IVPB Q8H [facility] PRN Reason: Protocol Last Admin: 05/18/18 21:01 Dose: 100 mls/hr Sodium Chloride 35 meq/Potassium Phosphate 30 mmole/Magnesium Sulfate 6 meq/ Calcium Chloride 330 mg/Chromium/Copper/Manganese/Zinc 1 ml/ Multivitamins/ Vitamin C 10 ml/ Heparin Sodium ( Porcine) 1,000 units/ Amino Acids 1,035.5278 mls @ 42 mls/hr IV .Q24H ONE Stop: 05/19/18 17:59 Last Admin: 05/18/18 18:38 Dose: 42 mls/hr Vancomycin/Sodium Chloride (Vancomycin 1 Gm/Ns 200 Ml) 1 gm in 200 mls @ 133.333 mls/hr IVPB Q12H [facility] PRN Reason: Protocol Stop: 05/23/18 17:01 Last Admin: 05/18/18 17:30 Dose: 133.333 mls/hr Ipratropium [place] (Atrovent) 0.5 mg IH RQ6 [facility] Last Admin: 05/18/18 20:25 Dose: 0.5 mg Lorazepam (Ativan) 0.5 mg IVP Q12 PRN PRN Reason: Anxiety Last Admin: 05/18/18 10:29 Dose: 0.5 mg Morphine Sulfate (Morphine) 1 mg IVP Q4 PRN PRN Reason: Pain, severe (8-10) Last Admin: 05/18/18 15:51 Dose: 1 mg Nicotine (Nicoderm Cq) 1 patch TD DAILY [facility] Last Admin: 05/18/18 10:08 Dose: 1 patch Ondansetron HCl (Zofran Inj) 4 mg IVP Q4 PRN PRN Reason: Nausea/Vomiting Pantoprazole Sodium (Protonix Inj) 40 mg IVP Q12H [facility] Last Admin: 05/18/18 21:00 Dose: 40 mg Saccharomyces Boulardii (Florastor) 250 mg NG BID [facility] - Labs Labs: 05/18/18 15:39 05/18/18 06:25 PT 14.3 SECONDS (9.7-12.2) H 05/18/18 06:25 INR 1.3 05/18/18 06:25 APTT 33 SECONDS (21-34) 05/16/18 18:56
[2018-05-19] MEDS: HYDROmorphone 1 mg/ml ISec IVP SCH ×4 (00:33→06:45)
[2018-05-19] MEDS: Ipratropium 0.02% Inhal Soln (0.5 mg/2.5 ml) UD IH SCH ×4 (01:21→20:09)
[2018-05-19] MEDS: Meropenem 1 GM in Sodium Chloride 0.9% 100 ML IVPB SCH ×3 (02:02→18:27)
[2018-05-19] MEDS: metroNIDAZOLE IV 500 mg/100 ml 500 MG/100 ML BAG IVPB SCH ×3 (03:02→19:41)
--- NOTE | 2018-05-19 03:46 | PN ---
Copied To: Guero Rivera MD Attending MD: Guero Rivera MD DATE: 05/18/2018 SUBJECTIVE: The patient was seen today. She was on a Ventimask, and she was kind of a vague. She did say she was having abdominal pain, and she had vomited once this morning, and she still had pain. She has not passed any flatus or bowel movement. After I left, they also called me that she was still febrile and remained tachycardic with T-max of 100, pulse of 120, blood pressure 139/96, respirations are 17. OBJECTIVE: HEENT: Head is atraumatic. NECK: Supple. LUNGS: Had coarse breath sounds. HEART: S1, tachy. ABDOMEN: Had this wound VAC which was covering the wound, and there were two drains, and then he had another drain which was draining bilious liquid. EXTREMITIES: Remain with Venodyne boots and had some edema. White count is 15, hemoglobin 9 today, hematocrit 26.7, platelets of 150, so platelets are a little better but she still had 12 bands, and her potassium was 3. Sodium 140 this morning, BUN is 7, creatinine 0.5. She is on meropenem, Azactam as well as Flagyl, and her OR body fluid showed gram-negative rods. ID and sensitivity pending. Blood and urine cultures have all been negative. She does have a triple lumen in the right IJ and has surgery for ischemic bowel, has been to OR twice. Chest x-ray was done today which shows limited left basilar atelectasis favored over infiltrate, limited right perihilar patchy density, now identified suspicious for infiltrate, ET tube not identified now. She may have aspirated as she did vomit. We will add vancomycin at this time, and continue the other antibiotics till the bandemia decreases, and she is more stable. She has ischemic bowel, acute respiratory failure, infiltrate. She has a history of gastric bypass surgery in the past. SHE IS ALLERGIC TO MOXIFLOXACIN, and still in intensive care. Guero Rivera MD
[2018-05-19] MEDS: Vancomycin 1 gm/NS 200 ml 1 GM/200 ML BAG IVPB SCH ×2 (04:33→16:45)
[2018-05-19] MEDS: Aztreonam 2 GM in Sodium Chloride 0.9% 100 ML IVPB SCH ×3 (05:38→21:50)
[2018-05-19] MEDS ORDERED: Acetaminophen IV 1,000 MG in Premixed IV 1 EA IV ONE (05:47)
[2018-05-19 06:30] LABS: BASO % 0.1 % (0.0-2.0); EOS # 0.1 K/uL (0.0-0.7); HEMOGLOBIN 8.3 g/dL (11.0-16.0); LYMPH # 1.3 K/uL (1.0-4.3); LYMPH % 11.2 % (20.0-40.0); MEAN CELL VOLUME 85.4 fL (81.0-99.0); MEAN CORPUSCULAR HEMOGLOBIN 28.8 pg (27.0-31.0); MEAN CORPUSCULAR HGB CONC 33.7 g/dL (33.0-37.0); MEAN PLATELET VOLUME 7.7 fL (7.2-11.7); MONO % 8.5 % (0.0-10.0); NEUT # 9.1 K/uL (1.8-7.0); NEUT % 79.2 % (50.0-75.0); NRBC % 0.1 % (0.0-2.0); RBC 2.89 Mil/uL (3.80-5.20); RED CELL DISTRIBUTION WIDTH 16.9 % (11.5-14.5); WHITE BLOOD COUNT 11.6 K/uL (4.8-10.8)
[2018-05-19 06:33] LABS: INR 1.3; PROTHROMBIN TIME 14.6 SECONDS (9.7-12.2)
[2018-05-19 06:42] LABS: ALBUMIN 2.4 g/dL (3.5-5.0); ALT/SGPT 108 U/L (9-52); AST/SGOT 63 U/L (14-36); BLOOD UREA NITROGEN 9 mg/dL (7-17); CALCIUM 7.5 mg/dl (8.6-10.4); GFR NON-AFRICAN AMERICAN > 60
--- NOTE | 2018-05-19 07:55 | CP.PCM.PN ---
Subjective - Date & Time of Evaluation Date of Evaluation: 05/19/18 Time of Evaluation: 07:00 - Subjective Subjective: GENERAL SURGERY PROGRESS NOTE FOR DR. ALAMO (covering for Dr. Haas) Patient seen and examined at bedside in ICU. No acute events overnight other than continued low grade fevers. Reports pain in her abdomen. Denies nausea or vomiting. No flatus or BM. Overnight outputs: NG tube: 700 Gastrostomy tube: 600cc L Sky: 50cc R sky: 60cc Objective - Vital Signs/Intake and Output Vital Signs (last 24 hours): Temp Pulse Resp BP Pulse Ox 100 F H 111 H 17 138/95 H 99 05/19/18 04:00 05/19/18 06:00 05/19/18 06:00 05/19/18 05:56 05/19/18 06:00 Intake and Output: 05/19/18 05/19/18 06:59 18:59 Intake Total 1446 Output Total 3310 Balance -1864 - Medications Medications: Current Medications Dextrose (Dextrose 50% Inj) 0 ml IV STAT PRN; Protocol PRN Reason: Hypoglycemia Protocol Last Admin: 05/16/18 23:40 Dose: 50 ml Dextrose (Glutose 15) 0 gm PO ONCE PRN; Protocol PRN Reason: Hypoglycemia Protocol Enoxaparin Sodium (Lovenox) 40 mg SC DAILY [facility] Glucagon (Glucagen Diagnostic Kit) 0 mg IM STAT PRN; Protocol PRN Reason: Hypoglycemia Protocol Hydrocortisone (Cortizone 1% Cream) 0 gm TOP TID [facility] Hydromorphone HCl (Dilaudid) 1 mg IVP Q2H [facility] Last Admin: 05/19/18 06:45 Dose: 1 mg Dextrose (Dextrose 5% In Water 1000 Ml) 1,000 mls @ 0 mls/hr IV .Q0M PRN; Protocol; Per Protocol PRN Reason: Hypoglycemia Protocol Metronidazole (Flagyl) 500 mg in 100 mls @ 100 mls/hr IVPB Q8H [facility] PRN Reason: Protocol Last Admin: 05/19/18 03:02 Dose: 100 mls/hr Meropenem 1 gm/ Sodium (Chloride) 100 mls @ 100 mls/hr IVPB Q8H [facility] PRN Reason: Protocol Last Admin: 05/19/18 02:02 Dose: 100 mls/hr Aztreonam 2 gm/ Sodium (Chloride) 100 mls @ 100 mls/hr IVPB Q8H [facility] PRN Reason: Protocol Last Admin: 05/19/18 05:38 Dose: 100 mls/hr Sodium Chloride 35 meq/Potassium Phosphate 30 mmole/Magnesium Sulfate 6 meq/ Calcium Chloride 330 mg/Chromium/Copper/Manganese/Zinc 1 ml/ Multivitamins/ Vitamin C 10 ml/ Heparin Sodium ( Porcine) 1,000 units/ Amino Acids 1,035.5278 mls @ 42 mls/hr IV .Q24H ONE Stop: 05/19/18 17:59 Last Admin: 05/18/18 18:38 Dose: 42 mls/hr Vancomycin/Sodium Chloride (Vancomycin 1 Gm/Ns 200 Ml) 1 gm in 200 mls @ 133.333 mls/hr IVPB Q12H [facility] PRN Reason: Protocol Stop: 05/23/18 17:01 Last Admin: 05/19/18 04:33 Dose: 133.333 mls/hr Potassium Phosphate 20 mmole/ (Sodium Chloride) 256.6667 mls @ 63 mls/hr IV ONCE ONE Stop: 05/19/18 12:04 Ipratropium [place] (Atrovent) 0.5 mg IH RQ6 [facility] Last Admin: 05/19/18 07:41 Dose: 0.5 mg Lorazepam (Ativan) 0.5 mg IVP Q12 PRN PRN Reason: Anxiety Last Admin: 05/18/18 22:34 Dose: 0.5 mg Morphine Sulfate (Morphine) 1 mg IVP Q4 PRN PRN Reason: Pain, severe (8-10) Last Admin: 05/19/18 05:39 Dose: 1 mg Nicotine (Nicoderm Cq) 1 patch TD DAILY [facility] Last Admin: 05/18/18 10:08 Dose: 1 patch Ondansetron HCl (Zofran Inj) 4 mg IVP Q4 PRN PRN Reason: Nausea/Vomiting Pantoprazole Sodium (Protonix Inj) 40 mg IVP Q12H [facility] Last Admin: 05/18/18 21:00 Dose: 40 mg Saccharomyces Boulardii (Florastor) 250 mg NG BID [facility] - Labs Labs: 05/19/18 06:21 05/19/18 06:21 PT 14.6 SECONDS (9.7-12.2) H 05/19/18 06:21 INR 1.3 05/19/18 06:21 APTT 29 SECONDS (21-34) 05/19/18 06:21 - Constitutional Appears: Non-toxic, No Acute Distress - Head Exam Head Exam: ATRAUMATIC, NORMAL INSPECTION - Respiratory Exam Respiratory Exam: NORMAL BREATHING PATTERN. absent: Respiratory Distress - Cardiovascular Exam Cardiovascular Exam: Tachycardia - GI/Abdominal Exam GI & Abdominal Exam: Soft, Tenderness (mild luana-incisional tenderness). absent : Distended, Firm, Guarding, Rigid, Rebound Additional comments: Wound vac in place to suction @100 mmhg Bilateral Sky drains in place with serous output Gastrostomy tube in place to gravity NG tube in place - Neurological Exam Neurological Exam: Alert, Awake, Oriented x3 - Psychiatric Exam Psychiatric exam: Normal Affect, Normal Mood - Skin Skin Exam: Dry, Normal Color, Warm Assessment and Plan - Assessment and Plan (Free Text) Assessment: 37yo F with PMHx of yenni-en-Y gastric bypass in 2014 now with bowel ischemia secondary to internal hernia. POD#5 s/p Exploratory laparotomy, Reduction of internal hernia, DANNI, Drainage of abdominal collections, temporary abdominal closure (fascia left open), EGD. POD#3 s/p Re-exploration, Small bowel resection of ileum, small bowel resection of Yenni limb including previous gastrojejunostomy, reversal of bypass, primary anastomosis of ileum-ileum, ileum-ileum, and ileum-jejunum, Gastrostomy tube in bypassed stomach, EGD Outputs: NG tube in gastric pouch: 700 Gastrostomy tube in bypassed stomach: 600cc from 7p-7a Right Sky: 60cc serous from 7p-7a Left Sky: 50cc serous from 7p-7a - Continues to have low grade fevers, remains tachycardic - Leukocytosis improved to 11.6 from 15.8, on Flagyl, Aztreonam, Merrem, Vanco per ID - Cx from OR of peritoneal fluid: gram negative rods (light growth) - Blood & Urine cx negative - Monitor urine output to keep >0.5mg/kg/hr - Continue strict NPO w/ NG tube to low intermittent suction in gastric pouch and gastrostomy tube to gravity - Possible trickle feeds through G tube on Wednesday - On TPN by ICU team - On Dilaudid 1Q2 by ICU team (pt has opioid dependence). Recommend changing pain regimen and decreasing Dilaudid frequency - DVT Prophylaxis: Lovenox - Will need surgery in 4-6 weeks to restore GI continuity - Wound vac removed today. Skin loosely closed with vertical mattress sutures and iodaform packing in between - Encouraged OOB, ambulation and IS use - PT ordered - Discussed plan with Dr. Mack Dailey PGY-4
[2018-05-19] MEDS ORDERED: Potassium Phosphate 20 MMOLE in Sodium Chloride 0.9% 250 ML IV ONE (08:00)
--- NOTE | 2018-05-19 08:01 | CP.CCUPN ---
<Nickolas Ruffin - Last Filed: 05/19/18 12:30> CCU Objective - Vital Signs / Intake & Output Intake and Output (Last 8hrs): Intake & Output 05/18/18 05/19/18 05/19/18 22:59 06:59 14:59 Intake Total 936 978 Output Total 3995 2970 Balance -3058 Weight 190 lb Intake: Intake, IV Amount 936 978 Right Distal Port 500 600 Internal Jugular Right Medial Port 100 Internal Jugular Right Proximal Port 336 378 Output: Gastric Amount 400 700 Right Nares 400 700 Drainage 480 710 Left Lower Abdomen 40 50 Left Upper Abdomen 400 600 Right Lower Abdomen 40 60 Urine 3115 1560 Urine, Voided 3115 1560 - Medications Active Medications: Active Medications Generic Name Dose Route Start Last Admin Trade Name Freq PRN Reason Stop Dose Admin Dextrose 0 ml 05/15/18 08:36 05/16/18 23:40 Dextrose 50% Inj IV 50 ml STAT PRN Administration Hypoglycemia Protocol Protocol Dextrose 0 gm 05/15/18 08:36 Glutose 15 PO ONCE PRN Hypoglycemia Protocol Protocol Enoxaparin Sodium 40 mg 05/19/18 10:00 05/19/18 10:00 Lovenox SC 40 mg DAILY KATELYN Administration Glucagon 0 mg 05/15/18 08:36 Glucagen Diagnostic Kit IM STAT PRN Hypoglycemia Protocol Protocol Hydrocortisone 0 gm 05/19/18 10:00 Cortizone 1% Cream TOP TID KATELYN Hydromorphone HCl 1 mg 05/19/18 08:19 05/19/18 10:56 Dilaudid IVP 1 mg Q2H PRN Administration Pain, moderate (4-7) Dextrose 1,000 mls @ 0 mls/hr 05/15/18 08:36 Dextrose 5% In Water 1000 Ml IV .Q0M PRN Hypoglycemia Protocol Protocol Per Protocol Metronidazole 500 mg in 100 mls @ 100 mls/hr 05/15/18 12:00 05/19/18 11:03 Flagyl IVPB 100 mls/hr Q8H KATELYN Administration Protocol Meropenem 1 gm/ Sodium 100 mls @ 100 mls/hr 05/15/18 11:00 05/19/18 10:00 Chloride IVPB 100 mls/hr Q8H KATELYN Administration Protocol Aztreonam 2 gm/ Sodium 100 mls @ 100 mls/hr 05/15/18 14:00 05/19/18 05:38 Chloride IVPB 100 mls/hr Q8H KATELYN Administration Protocol Sodium Chloride 35 meq/ 1,035.5278 mls @ 42 mls/hr 05/18/18 18:00 05/18/18 18 :38 Potassium Phosphate 30 mmole/ IV 05/19/18 17:59 42 mls/hr Magnesium Sulfate 6 meq/ .Q24H ONE Administration Calcium Chloride 330 mg/ Chromium/Copper/Manganese/Zinc 1 ml/ Multivitamins/Vitamin C 10 ml/ Heparin Sodium ( Porcine) 1,000 units/ Amino Acids Vancomycin/Sodium Chloride 1 gm in 200 mls @ 133.333 mls/hr 05/18/18 17:00 04:33 Vancomycin 1 Gm/Ns 200 Ml IVPB 05/23/18 17:01 133.333 mls/hr Q12H KATELYN Administration Protocol Acetaminophen 100 mls @ 400 mls/hr 05/19/18 12:00 Ofirmev IV 05/20/18 12:01 Q6 KATELYN Potassium Chloride 20 meq in 100 mls @ 50 mls/hr 05/19/18 11:30 Potassium Chloride 20 Meq/100 Ml IVPB 05/19/18 15:29 Q2H KATELYN Sodium Chloride 35 meq/ 1,035.4278 mls @ 42 mls/hr 05/19/18 18:00 Potassium Phosphate 30 mmole/ IV 05/20/18 17:59 Magnesium Sulfate 6 meq/ .Q24H ONE Calcium Chloride 320 mg/ Multivitamins/Vitamin C 10 ml/ Chromium/Copper/Manganese/ Seleni/Zn 1 ml/ Heparin Sodium (Porcine) 1,000 units/ Amino Acids Ipratropium [place] 0.5 mg 05/17/18 14:00 05/19/18 07:41 Atrovent IH 0.5 mg RQ6 KATELYN Administration Lorazepam 0.5 mg 05/18/18 10:06 05/19/18 10:56 Ativan IVP 0.5 mg Q12 PRN Administration Anxiety Morphine Sulfate 1 mg 05/18/18 14:45 05/19/18 05:39 Morphine IVP 1 mg Q4 PRN Administration Pain, severe (8-10) Nicotine 1 patch 05/18/18 10:00 05/19/18 09:58 Nicoderm Cq TD 1 patch DAILY KATELYN Administration Ondansetron HCl 4 mg 05/14/18 02:57 Zofran Inj IVP Q4 PRN Nausea/Vomiting Pantoprazole Sodium 40 mg 05/16/18 10:00 05/19/18 10:00 Protonix Inj IVP 40 mg Q12H KATELYN Administration - Patient Studies Lab Studies: Microbiology Studies 05/14/18 16:56 Gram Stain - Final Peritoneal Fluid Body Fluid Culture - Final Pseudomonas Aeruginosa 05/15/18 12:51 Blood Culture - Preliminary Blood-Thru Central Line NO GROWTH AFTER 3 DAYS 05/15/18 12:51 Blood Culture - Preliminary Blood-Thru Central Line NO GROWTH AFTER 3 DAYS Lab Studies 05/19/18 05/19/18 05/19/18 Range/Units 06:21 06:21 06:21 WBC 11.6 H (4.8-10.8) K/uL RBC 2.89 L (3.80-5.20) Mil/uL Hgb 8.3 L (11.0-16.0) g/dL Hct 24.7 L (34.0-47.0) % MCV 85.4 (81.0-99.0) fL MCH 28.8 (27.0-31.0) pg MCHC 33.7 (33.0-37.0) g/dL RDW 16.9 H (11.5-14.5) % Plt Count 164 (130-400) K/uL MPV 7.7 (7.2-11.7) fL Neut % (Auto) 79.2 H (50.0-75.0) % Lymph % (Auto) 11.2 L (20.0-40.0) % [place] % (Auto) 8.5 (0.0-10.0) % Eos % (Auto) 1.0 (0.0-4.0) % Baso % (Auto) 0.1 (0.0-2.0) % Neut # (Auto) 9.1 H (1.8-7.0) K/uL Lymph # (Auto) 1.3 (1.0-4.3) K/uL [place] # (Auto) 1.0 H (0.0-0.8) K/uL Eos # (Auto) 0.1 (0.0-0.7) K/uL Baso # (Auto) 0.0 (0.0-0.2) K/uL PT 14.6 H (9.7-12.2) SECONDS INR 1.3 APTT 29 (21-34) SECONDS Sodium 140 (132-148) mmol/L Potassium 2.6 L (3.6-5.2) mmol/L Chloride 100 (98-107) mmol/L Carbon Dioxide 34 H (22-30) mmol/L Anion Gap 8 L (10-20) BUN 9 (7-17) mg/dL Creatinine 0.5 L (0.7-1.2) mg/dL Est GFR ( Amer) > 60 Est GFR (Non-Af Amer) > 60 POC Glucose (mg/dL) (65-110) mg/dL Random Glucose 141 H (65-105) mg/dL Calcium 7.5 L (8.6-10.4) mg/dl Phosphorus 2.0 L (2.5-4.5) mg/dL Magnesium 1.8 (1.6-2.3) mg/dL Total Bilirubin 1.9 H (0.2-1.3) mg/dL AST 63 H (14-36) U/L ALT 108 H (9-52) U/L Alkaline Phosphatase 117 (38-126) U/L Total Protein 4.7 L (6.3-8.3) g/dL Albumin 2.4 L (3.5-5.0) g/dL Globulin 2.3 (2.2-3.9) gm/dL Albumin/Globulin Ratio 1.0 (1.0-2.1) Triglycerides 226 H D (0-149) mg/dL Cholesterol 104 (0-199) mg/dL LDL Cholesterol Direct 38 (0-129) mg/dL HDL Cholesterol 14 L (30-70) mg/dL 05/19/18 05/18/18 05/18/18 Range/Units 05:47 23:35 17:31 WBC (4.8-10.8) K/uL RBC (3.80-5.20) Mil/uL Hgb (11.0-16.0) g/dL Hct (34.0-47.0) % MCV (81.0-99.0) fL MCH (27.0-31.0) pg MCHC (33.0-37.0) g/dL RDW (11.5-14.5) % Plt Count (130-400) K/uL MPV (7.2-11.7) fL Neut % (Auto) (50.0-75.0) % Lymph % (Auto) (20.0-40.0) % [place] % (Auto) (0.0-10.0) % Eos % (Auto) (0.0-4.0) % Baso % (Auto) (0.0-2.0) % Neut # (Auto) (1.8-7.0) K/uL Lymph # (Auto) (1.0-4.3) K/uL [place] # (Auto) (0.0-0.8) K/uL Eos # (Auto) (0.0-0.7) K/uL Baso # (Auto) (0.0-0.2) K/uL PT (9.7-12.2) SECONDS INR APTT (21-34) SECONDS Sodium (132-148) mmol/L Potassium (3.6-5.2) mmol/L Chloride (98-107) mmol/L Carbon Dioxide (22-30) mmol/L Anion Gap (10-20) BUN (7-17) mg/dL Creatinine (0.7-1.2) mg/dL Est GFR ( Amer) Est GFR (Non-Af Amer) POC Glucose (mg/dL) 171 H 141 H 134 H (65-110) mg/dL Random Glucose (65-105) mg/dL Calcium (8.6-10.4) mg/dl Phosphorus (2.5-4.5) mg/dL Magnesium (1.6-2.3) mg/dL Total Bilirubin (0.2-1.3) mg/dL AST (14-36) U/L ALT (9-52) U/L Alkaline Phosphatase (38-126) U/L Total Protein (6.3-8.3) g/dL Albumin (3.5-5.0) g/dL Globulin (2.2-3.9) gm/dL Albumin/Globulin Ratio (1.0-2.1) Triglycerides (0-149) mg/dL Cholesterol (0-199) mg/dL LDL Cholesterol Direct (0-129) mg/dL HDL Cholesterol (30-70) mg/dL 05/18/18 Range/Units 15:39 WBC 15.0 H (4.8-10.8) K/uL RBC 3.14 L (3.80-5.20) Mil/uL Hgb 9.0 L (11.0-16.0) g/dL Hct 26.7 L (34.0-47.0) % MCV 85.2 (81.0-99.0) fL MCH 28.6 (27.0-31.0) pg MCHC 33.6 (33.0-37.0) g/dL RDW 16.6 H (11.5-14.5) % Plt Count 150 (130-400) K/uL MPV 7.1 L (7.2-11.7) fL Neut % (Auto) (50.0-75.0) % Lymph % (Auto) (20.0-40.0) % [place] % (Auto) (0.0-10.0) % Eos % (Auto) (0.0-4.0) % Baso % (Auto) (0.0-2.0) % Neut # (Auto) (1.8-7.0) K/uL Lymph # (Auto) (1.0-4.3) K/uL [place] # (Auto) (0.0-0.8) K/uL Eos # (Auto) (0.0-0.7) K/uL Baso # (Auto) (0.0-0.2) K/uL PT (9.7-12.2) SECONDS INR APTT (21-34) SECONDS Sodium (132-148) mmol/L Potassium (3.6-5.2) mmol/L Chloride (98-107) mmol/L Carbon Dioxide (22-30) mmol/L Anion Gap (10-20) BUN (7-17) mg/dL Creatinine (0.7-1.2) mg/dL Est GFR ( Amer) Est GFR (Non-Af Amer) POC Glucose (mg/dL) (65-110) mg/dL Random Glucose (65-105) mg/dL Calcium (8.6-10.4) mg/dl Phosphorus (2.5-4.5) mg/dL Magnesium (1.6-2.3) mg/dL Total Bilirubin (0.2-1.3) mg/dL AST (14-36) U/L ALT (9-52) U/L Alkaline Phosphatase (38-126) U/L Total Protein (6.3-8.3) g/dL Albumin (3.5-5.0) g/dL Globulin (2.2-3.9) gm/dL Albumin/Globulin Ratio (1.0-2.1) Triglycerides (0-149) mg/dL Cholesterol (0-199) mg/dL LDL Cholesterol Direct (0-129) mg/dL HDL Cholesterol (30-70) mg/dL Laboratory Results - last 24 hr 05/18/18 05/18/18 05/18/18 15:39 17:31 23:35 WBC 15.0 H RBC 3.14 L Hgb 9.0 L Hct 26.7 L MCV 85.2 MCH 28.6 MCHC 33.6 RDW 16.6 H Plt Count 150 MPV 7.1 L Neut % (Auto) Lymph % (Auto) [place] % (Auto) Eos % (Auto) Baso % (Auto) Neut # (Auto) Lymph # (Auto) [place] # (Auto) Eos # (Auto) Baso # (Auto) PT INR APTT Sodium Potassium Chloride Carbon Dioxide Anion Gap BUN Creatinine Est GFR ( Amer) Est GFR (Non-Af Amer) POC Glucose (mg/dL) 134 H 141 H Random Glucose Calcium Phosphorus Magnesium Total Bilirubin AST ALT Alkaline Phosphatase Total Protein Albumin Globulin Albumin/Globulin Ratio Triglycerides Cholesterol LDL Cholesterol Direct HDL Cholesterol 05/19/18 05/19/18 05/19/18 05:47 06:21 06:21 WBC 11.6 H RBC 2.89 L Hgb 8.3 L Hct 24.7 L MCV 85.4 MCH 28.8 MCHC 33.7 RDW 16.9 H Plt Count 164 MPV 7.7 Neut % (Auto) 79.2 H Lymph % (Auto) 11.2 L [place] % (Auto) 8.5 Eos % (Auto) 1.0 Baso % (Auto) 0.1 Neut # (Auto) 9.1 H Lymph # (Auto) 1.3 [place] # (Auto) 1.0 H Eos # (Auto) 0.1 Baso # (Auto) 0.0 PT INR APTT Sodium 140 Potassium 2.6 L Chloride 100 Carbon Dioxide 34 H Anion Gap 8 L BUN 9 Creatinine 0.5 L Est GFR ( Amer) > 60 Est GFR (Non-Af Amer) > 60 POC Glucose (mg/dL) 171 H Random Glucose 141 H Calcium 7.5 L Phosphorus 2.0 L Magnesium 1.8 Total Bilirubin 1.9 H AST 63 H ALT 108 H Alkaline Phosphatase 117 Total Protein 4.7 L Albumin 2.4 L Globulin 2.3 Albumin/Globulin Ratio 1.0 Triglycerides 226 H D Cholesterol 104 LDL Cholesterol Direct 38 HDL Cholesterol 14 L 05/19/18 06:21 WBC RBC Hgb Hct MCV MCH MCHC RDW Plt Count MPV Neut % (Auto) Lymph % (Auto) [place] % (Auto) Eos % (Auto) Baso % (Auto) Neut # (Auto) Lymph # (Auto) [place] # (Auto) Eos # (Auto) Baso # (Auto) PT 14.6 H INR 1.3 APTT 29 Sodium Potassium Chloride Carbon Dioxide Anion Gap BUN Creatinine Est GFR ( Amer) Est GFR (Non-Af Amer) POC Glucose (mg/dL) Random Glucose Calcium Phosphorus Magnesium Total Bilirubin AST ALT Alkaline Phosphatase Total Protein Albumin Globulin Albumin/Globulin Ratio Triglycerides Cholesterol LDL Cholesterol Direct HDL Cholesterol Critical Care Progress Note - Nutrition Nutrition: Nutrition Category Date Time Status NPO Diet [DIET] Diets 05/14/18 Breakfast Active Attending/Attestation - Attestation I have personally seen and examined this patient.: Yes I have fully participated in the care of the patient.: Yes I have reviewed all pertinent clinical information: Yes Notes (Text): 05/19/18 12:30 I have seen and examined the patient. Medical records, lab studies, and imaging were reviewed by me and a management plan was formulated on multidisciplinary rounds with resident Dr. Cornelius. I agree with their documented assessment and plan. Critical Care Time 35 minutes. Multi-disciplinary rounds were performed with house staff, nursing, speech therapy, respiratory therapy, pharmacy and nutrition with integrated input from the primary team/attending and other consulting services. The documented time is cumulative and includes review of patient data/exams/labs/chart review and examination of the patient on rounds and throughout the day; time is exclusive of any procedures or teaching time. <Jose Angel Cornelius - Last Filed: 05/19/18 13:41> CCU Subjective - Physician Review Subjective (Free Text): Jose Angel Cornelius DO PGY-1, ICU progress note for Dr. Ruffin Pt was seen and examined at bedside. Pt reports moderate diffuse abdominal pain. Pt was noted to be febrile last night, tmax 100.9, and treated with Acetominophen IV. Pt denies headache, weakness, dizziness, lightheadedness, chest pain, shortness of breath, n/v/d. Pt has produced 2600 mL of urine over the past 24 hours. A 12-point ROS was reviewed and is otherwise unremarkable. CCU Objective - Vital Signs / Intake & Output Vital Signs (Last 4 hours): Vital Signs Pulse Resp BP Pulse Ox 05/19/18 06:00 111 H 17 99 05/19/18 05:56 138/95 H 05/19/18 05:00 125 H 25 H 98 05/19/18 04:56 132/81 Intake and Output (Last 8hrs): Intake & Output 05/18/18 05/19/18 05/19/18 22:59 06:59 14:59 Intake Total 936 978 Output Total 3995 2970 Balance -3058 Weight 86.183 kg Intake: Intake, IV Amount 936 978 Right Distal Port 500 600 Internal Jugular Right Medial Port 100 Internal Jugular Right Proximal Port 336 378 Output: Gastric Amount 400 700 Right Nares 400 700 Drainage 480 710 Left Lower Abdomen 40 50 Left Upper Abdomen 400 600 Right Lower Abdomen 40 60 Urine 3115 1560 Urine, Voided 3115 1560 - Physical Exam Head: Positive for: Atraumatic, Normocephalic Pupils: Positive for: PERRL Extroacular Muscles: Positive for: EOMI Conjunctiva: Positive for: Normal Mouth: Positive for: Moist Mucous Membranes Nose (External): Positive for: Other ((+) NGT on low int suction) Neck: Positive for: Normal Range of Motion, Other ((+) central line in right IJ) Respiratory/Chest: Positive for: Clear to Auscultation, Good Air Exchange. Negative for: Wheezes, Rales Cardiovascular: Positive for: Normal S1, S2, Tachycardic Abdomen: Positive for: Tenderness (diffuse tenderness; soft abdomen), Other ( (+ ) large vertical incision has been closed; no signs of local infection, (+) bilateral anali drains with serosanguinous fluid, (+) g-tube draining dark, bilious fluid). Negative for: Peritoneal Signs Upper Extremity: Positive for: Normal Inspection, NORMAL PULSES Lower Extremity: Positive for: Normal Inspection, NORMAL PULSES. Negative for: CALF TENDERNESS Neurological: Positive for: GCS=15, CN II-XII Intact Skin: Positive for: Warm, Dry Psychiatric: Positive for: Alert, Oriented x 3 - Medications Active Medications: Active Medications Generic Name Dose Route Start Last Admin Trade Name Freq PRN Reason Stop Dose Admin Dextrose 0 ml 05/15/18 08:36 05/16/18 23:40 Dextrose 50% Inj IV 50 ml STAT PRN Administration Hypoglycemia Protocol Protocol Dextrose 0 gm 05/15/18 08:36 Glutose 15 PO ONCE PRN Hypoglycemia Protocol Protocol Enoxaparin Sodium 40 mg 05/19/18 10:00 Lovenox SC DAILY KATELYN Glucagon 0 mg 05/15/18 08:36 Glucagen Diagnostic Kit IM STAT PRN Hypoglycemia Protocol Protocol Hydrocortisone 0 gm 05/19/18 10:00 Cortizone 1% Cream TOP TID KATELYN Hydromorphone HCl 1 mg 05/18/18 16:45 05/19/18 06:45 Dilaudid IVP 1 mg Q2H KATELYN Administration Dextrose 1,000 mls @ 0 mls/hr 05/15/18 08:36 Dextrose 5% In Water 1000 Ml IV .Q0M PRN Hypoglycemia Protocol Protocol Per Protocol Metronidazole 500 mg in 100 mls @ 100 mls/hr 05/15/18 12:00 05/19/18 03:02 Flagyl IVPB 100 mls/hr Q8H KATELYN Administration Protocol Meropenem 1 gm/ Sodium 100 mls @ 100 mls/hr 05/15/18 11:00 05/19/18 02:02 Chloride IVPB 100 mls/hr Q8H KATELYN Administration Protocol Aztreonam 2 gm/ Sodium 100 mls @ 100 mls/hr 05/15/18 14:00 05/19/18 05:38 Chloride IVPB 100 mls/hr Q8H KATELYN Administration Protocol Sodium Chloride 35 meq/ 1,035.5278 mls @ 42 mls/hr 05/18/18 18:00 05/18/18 18 :38 Potassium Phosphate 30 mmole/ IV 05/19/18 17:59 42 mls/hr Magnesium Sulfate 6 meq/ .Q24H ONE Administration Calcium Chloride 330 mg/ Chromium/Copper/Manganese/Zinc 1 ml/ Multivitamins/Vitamin C 10 ml/ Heparin Sodium ( Porcine) 1,000 units/ Amino Acids Vancomycin/Sodium Chloride 1 gm in 200 mls @ 133.333 mls/hr 05/18/18 17:00 04:33 Vancomycin 1 Gm/Ns 200 Ml IVPB 05/23/18 17:01 133.333 mls/hr Q12H KATELYN Administration Protocol Potassium Phosphate 20 mmole/ 256.6667 mls @ 63 mls/hr 05/19/18 08:00 Sodium Chloride IV 05/19/18 12:04 ONCE ONE Ipratropium [place] 0.5 mg 05/17/18 14:00 05/19/18 07:41 Atrovent IH 0.5 mg RQ6 KATELYN Administration Lorazepam 0.5 mg 05/18/18 10:06 05/18/18 22:34 Ativan IVP 0.5 mg Q12 PRN Administration Anxiety Morphine Sulfate 1 mg 05/18/18 14:45 05/19/18 05:39 Morphine IVP 1 mg Q4 PRN Administration Pain, severe (8-10) Nicotine 1 patch 05/18/18 10:00 05/18/18 10:08 Nicoderm Cq TD 1 patch DAILY KATELYN Administration Ondansetron HCl 4 mg 05/14/18 02:57 Zofran Inj IVP Q4 PRN Nausea/Vomiting Pantoprazole Sodium 40 mg 05/16/18 10:00 05/18/18 21:00 Protonix Inj IVP 40 mg Q12H KATELYN Administration Saccharomyces Boulardii 250 mg 05/19/18 10:00 Florastor NG BID KATELYN - Patient Studies Lab Studies: Microbiology Studies 05/15/18 12:51 Blood Culture - Preliminary Blood-Thru Central Line NO GROWTH AFTER 3 DAYS 05/15/18 12:51 Blood Culture - Preliminary Blood-Thru Central Line NO GROWTH AFTER 3 DAYS 05/14/18 16:56 Gram Stain - Final Peritoneal Fluid Body Fluid Culture - Preliminary Gram Negative Jose Lab Studies 05/19/18 05/19/18 05/19/18 Range/Units 06:21 06:21 06:21 WBC 11.6 H (4.8-10.8) K/uL RBC 2.89 L (3.80-5.20) Mil/uL Hgb 8.3 L (11.0-16.0) g/dL Hct 24.7 L (34.0-47.0) % MCV 85.4 (81.0-99.0) fL MCH 28.8 (27.0-31.0) pg MCHC 33.7 (33.0-37.0) g/dL RDW 16.9 H (11.5-14.5) % Plt Count 164 (130-400) K/uL MPV 7.7 (7.2-11.7) fL Neut % (Auto) 79.2 H (50.0-75.0) % Lymph % (Auto) 11.2 L (20.0-40.0) % [place] % (Auto) 8.5 (0.0-10.0) % Eos % (Auto) 1.0 (0.0-4.0) % Baso % (Auto) 0.1 (0.0-2.0) % Neut # (Auto) 9.1 H (1.8-7.0) K/uL Lymph # (Auto) 1.3 (1.0-4.3) K/uL [place] # (Auto) 1.0 H (0.0-0.8) K/uL Eos # (Auto) 0.1 (0.0-0.7) K/uL Baso # (Auto) 0.0 (0.0-0.2) K/uL Neutrophils % (Manual) (50-75) % Band Neutrophils % (0-2) % Lymphocytes % (Manual) (20-40) % Monocytes % (Manual) (0-10) % Platelet Estimate (NORMAL) RBC Morphology PT 14.6 H (9.7-12.2) SECONDS INR 1.3 APTT 29 (21-34) SECONDS Sodium 140 (132-148) mmol/L Potassium 2.6 L (3.6-5.2) mmol/L Chloride 100 (98-107) mmol/L Carbon Dioxide 34 H (22-30) mmol/L Anion Gap 8 L (10-20) BUN 9 (7-17) mg/dL Creatinine 0.5 L (0.7-1.2) mg/dL Est GFR ( Amer) > 60 Est GFR (Non-Af Amer) > 60 POC Glucose (mg/dL) (65-110) mg/dL Random Glucose 141 H (65-105) mg/dL Calcium 7.5 L (8.6-10.4) mg/dl Phosphorus 2.0 L (2.5-4.5) mg/dL Magnesium 1.8 (1.6-2.3) mg/dL Total Bilirubin 1.9 H (0.2-1.3) mg/dL AST 63 H (14-36) U/L ALT 108 H (9-52) U/L Alkaline Phosphatase 117 (38-126) U/L Total Protein 4.7 L (6.3-8.3) g/dL Albumin 2.4 L (3.5-5.0) g/dL Globulin 2.3 (2.2-3.9) gm/dL Albumin/Globulin Ratio 1.0 (1.0-2.1) 05/19/18 05/18/18 05/18/18 Range/Units 05:47 23:35 17:31 WBC (4.8-10.8) K/uL RBC (3.80-5.20) Mil/uL Hgb (11.0-16.0) g/dL Hct (34.0-47.0) % MCV (81.0-99.0) fL MCH (27.0-31.0) pg MCHC (33.0-37.0) g/dL RDW (11.5-14.5) % Plt Count (130-400) K/uL MPV (7.2-11.7) fL Neut % (Auto) (50.0-75.0) % Lymph % (Auto) (20.0-40.0) % [place] % (Auto) (0.0-10.0) % Eos % (Auto) (0.0-4.0) % Baso % (Auto) (0.0-2.0) % Neut # (Auto) (1.8-7.0) K/uL Lymph # (Auto) (1.0-4.3) K/uL [place] # (Auto) (0.0-0.8) K/uL Eos # (Auto) (0.0-0.7) K/uL Baso # (Auto) (0.0-0.2) K/uL Neutrophils % (Manual) (50-75) % Band Neutrophils % (0-2) % Lymphocytes % (Manual) (20-40) % Monocytes % (Manual) (0-10) % Platelet Estimate (NORMAL) RBC Morphology PT (9.7-12.2) SECONDS INR APTT (21-34) SECONDS Sodium (132-148) mmol/L Potassium (3.6-5.2) mmol/L Chloride (98-107) mmol/L Carbon Dioxide (22-30) mmol/L Anion Gap (10-20) BUN (7-17) mg/dL Creatinine (0.7-1.2) mg/dL Est GFR ( Amer) Est GFR (Non-Af Amer) POC Glucose (mg/dL) 171 H 141 H 134 H (65-110) mg/dL Random Glucose (65-105) mg/dL Calcium (8.6-10.4) mg/dl Phosphorus (2.5-4.5) mg/dL Magnesium (1.6-2.3) mg/dL Total Bilirubin (0.2-1.3) mg/dL AST (14-36) U/L ALT (9-52) U/L Alkaline Phosphatase (38-126) U/L Total Protein (6.3-8.3) g/dL Albumin (3.5-5.0) g/dL Globulin (2.2-3.9) gm/dL Albumin/Globulin Ratio (1.0-2.1) 05/18/18 05/18/18 05/18/18 Range/Units 15:39 11:27 06:25 WBC 15.0 H (4.8-10.8) K/uL RBC 3.14 L (3.80-5.20) Mil/uL Hgb 9.0 L (11.0-16.0) g/dL Hct 26.7 L (34.0-47.0) % MCV 85.2 (81.0-99.0) fL MCH 28.6 (27.0-31.0) pg MCHC 33.6 (33.0-37.0) g/dL RDW 16.6 H (11.5-14.5) % Plt Count 150 (130-400) K/uL MPV 7.1 L (7.2-11.7) fL Neut % (Auto) (50.0-75.0) % Lymph % (Auto) (20.0-40.0) % [place] % (Auto) (0.0-10.0) % Eos % (Auto) (0.0-4.0) % Baso % (Auto) (0.0-2.0) % Neut # (Auto) (1.8-7.0) K/uL Lymph # (Auto) (1.0-4.3) K/uL [place] # (Auto) (0.0-0.8) K/uL Eos # (Auto) (0.0-0.7) K/uL Baso # (Auto) (0.0-0.2) K/uL Neutrophils % (Manual) 79 H (50-75) % Band Neutrophils % 12 H* (0-2) % Lymphocytes % (Manual) 6 L (20-40) % Monocytes % (Manual) 3 (0-10) % Platelet Estimate Normal (NORMAL) RBC Morphology Normal PT (9.7-12.2) SECONDS INR APTT (21-34) SECONDS Sodium (132-148) mmol/L Potassium (3.6-5.2) mmol/L Chloride (98-107) mmol/L Carbon Dioxide (22-30) mmol/L Anion Gap (10-20) BUN (7-17) mg/dL Creatinine (0.7-1.2) mg/dL Est GFR ( Amer) Est GFR (Non-Af Amer) POC Glucose (mg/dL) 139 H (65-110) mg/dL Random Glucose (65-105) mg/dL Calcium (8.6-10.4) mg/dl Phosphorus (2.5-4.5) mg/dL Magnesium (1.6-2.3) mg/dL Total Bilirubin (0.2-1.3) mg/dL AST (14-36) U/L ALT (9-52) U/L Alkaline Phosphatase (38-126) U/L Total Protein (6.3-8.3) g/dL Albumin (3.5-5.0) g/dL Globulin (2.2-3.9) gm/dL Albumin/Globulin Ratio (1.0-2.1) 05/18/18 Range/Units 05:32 WBC (4.8-10.8) K/uL RBC (3.80-5.20) Mil/uL Hgb (11.0-16.0) g/dL Hct (34.0-47.0) % MCV (81.0-99.0) fL MCH (27.0-31.0) pg MCHC (33.0-37.0) g/dL RDW (11.5-14.5) % Plt Count (130-400) K/uL MPV (7.2-11.7) fL Neut % (Auto) (50.0-75.0) % Lymph % (Auto) (20.0-40.0) % [place] % (Auto) (0.0-10.0) % Eos % (Auto) (0.0-4.0) % Baso % (Auto) (0.0-2.0) % Neut # (Auto) (1.8-7.0) K/uL Lymph # (Auto) (1.0-4.3) K/uL [place] # (Auto) (0.0-0.8) K/uL Eos # (Auto) (0.0-0.7) K/uL Baso # (Auto) (0.0-0.2) K/uL Neutrophils % (Manual) (50-75) % Band Neutrophils % (0-2) % Lymphocytes % (Manual) (20-40) % Monocytes % (Manual) (0-10) % Platelet Estimate (NORMAL) RBC Morphology PT (9.7-12.2) SECONDS INR APTT (21-34) SECONDS Sodium (132-148) mmol/L Potassium (3.6-5.2) mmol/L Chloride (98-107) mmol/L Carbon Dioxide (22-30) mmol/L Anion Gap (10-20) BUN (7-17) mg/dL Creatinine (0.7-1.2) mg/dL Est GFR ( Amer) Est GFR (Non-Af Amer) POC Glucose (mg/dL) 122 H (65-110) mg/dL Random Glucose (65-105) mg/dL Calcium (8.6-10.4) mg/dl Phosphorus (2.5-4.5) mg/dL Magnesium (1.6-2.3) mg/dL Total Bilirubin (0.2-1.3) mg/dL AST (14-36) U/L ALT (9-52) U/L Alkaline Phosphatase (38-126) U/L Total Protein (6.3-8.3) g/dL Albumin (3.5-5.0) g/dL Globulin (2.2-3.9) gm/dL Albumin/Globulin Ratio (1.0-2.1) Laboratory Results - last 24 hr 05/18/18 05/18/18 05/18/18 05:32 06:25 11:27 WBC RBC Hgb Hct MCV MCH MCHC RDW Plt Count MPV Neut % (Auto) Lymph % (Auto) [place] % (Auto) Eos % (Auto) Baso % (Auto) Neut # (Auto) Lymph # (Auto) [place] # (Auto) Eos # (Auto) Baso # (Auto) Neutrophils % (Manual) 79 H Band Neutrophils % 12 H* Lymphocytes % (Manual) 6 L Monocytes % (Manual) 3 Platelet Estimate Normal RBC Morphology Normal PT INR APTT Sodium Potassium Chloride Carbon Dioxide Anion Gap BUN Creatinine Est GFR ( Amer) Est GFR (Non-Af Amer) POC Glucose (mg/dL) 122 H 139 H Random Glucose Calcium Phosphorus Magnesium Total Bilirubin AST ALT Alkaline Phosphatase Total Protein Albumin Globulin Albumin/Globulin Ratio 05/18/18 05/18/18 05/18/18 15:39 17:31 23:35 WBC 15.0 H RBC 3.14 L Hgb 9.0 L Hct 26.7 L MCV 85.2 MCH 28.6 MCHC 33.6 RDW 16.6 H Plt Count 150 MPV 7.1 L Neut % (Auto) Lymph % (Auto) [place] % (Auto) Eos % (Auto) Baso % (Auto) Neut # (Auto) Lymph # (Auto) [place] # (Auto) Eos # (Auto) Baso # (Auto) Neutrophils % (Manual) Band Neutrophils % Lymphocytes % (Manual) Monocytes % (Manual) Platelet Estimate RBC Morphology PT INR APTT Sodium Potassium Chloride Carbon Dioxide Anion Gap BUN Creatinine Est GFR ( Amer) Est GFR (Non-Af Amer) POC Glucose (mg/dL) 134 H 141 H Random Glucose Calcium Phosphorus Magnesium Total Bilirubin AST ALT Alkaline Phosphatase Total Protein Albumin Globulin Albumin/Globulin Ratio 05/19/18 05/19/18 05/19/18 05:47 06:21 06:21 WBC 11.6 H RBC 2.89 L Hgb 8.3 L Hct 24.7 L MCV 85.4 MCH 28.8 MCHC 33.7 RDW 16.9 H Plt Count 164 MPV 7.7 Neut % (Auto) 79.2 H Lymph % (Auto) 11.2 L [place] % (Auto) 8.5 Eos % (Auto) 1.0 Baso % (Auto) 0.1 Neut # (Auto) 9.1 H Lymph # (Auto) 1.3 [place] # (Auto) 1.0 H Eos # (Auto) 0.1 Baso # (Auto) 0.0 Neutrophils % (Manual) Band Neutrophils % Lymphocytes % (Manual) Monocytes % (Manual) Platelet Estimate RBC Morphology PT INR APTT Sodium 140 Potassium 2.6 L Chloride 100 Carbon Dioxide 34 H Anion Gap 8 L BUN 9 Creatinine 0.5 L Est GFR ( Amer) > 60 Est GFR (Non-Af Amer) > 60 POC Glucose (mg/dL) 171 H Random Glucose 141 H Calcium 7.5 L Phosphorus 2.0 L Magnesium 1.8 Total Bilirubin 1.9 H AST 63 H ALT 108 H Alkaline Phosphatase 117 Total Protein 4.7 L Albumin 2.4 L Globulin 2.3 Albumin/Globulin Ratio 1.0 05/19/18 06:21 WBC RBC Hgb Hct MCV MCH MCHC RDW Plt Count MPV Neut % (Auto) Lymph % (Auto) [place] % (Auto) Eos % (Auto) Baso % (Auto) Neut # (Auto) Lymph # (Auto) [place] # (Auto) Eos # (Auto) Baso # (Auto) Neutrophils % (Manual) Band Neutrophils % Lymphocytes % (Manual) Monocytes % (Manual) Platelet Estimate RBC Morphology PT 14.6 H INR 1.3 APTT 29 Sodium Potassium Chloride Carbon Dioxide Anion Gap BUN Creatinine Est GFR ( Amer) Est GFR (Non-Af Amer) POC Glucose (mg/dL) Random Glucose Calcium Phosphorus Magnesium Total Bilirubin AST ALT Alkaline Phosphatase Total Protein Albumin Globulin Albumin/Globulin Ratio Fingerstick Blood Sugar Results: 171 Review of Systems - Review of Systems All systems: reviewed and no additional remarkable complaints except (as per HPI ) Critical Care Progress Note - Extremities/Vascular Does the Patient have a Central Venous Catheter?: Yes Does the Patient have a Srivastava Catheter?: Yes - Prophylaxis GI Prophylaxis GI: PPI - Prophylaxis DVT Prophylaxis DVT: Lovenox - Nutrition Nutrition: Nutrition Category Date Time Status NPO Diet [DIET] Diets 05/14/18 Breakfast Active Assessment/Plan - Assessment and Plan (Free Text) Assessment: This is a 37 year old female with PMH of recurrent SBOs s/p gastric bypass (2013 ), HTN, HLD, DM2, obesity, gastritis, asthma who was BIBA to ED on 05/14/18 with complaints of 1 day history of severe abdominal pain associated with 3 episodes of NBNB emesis. Abd/pelv CT was positive for SBO, with small amount of free fluid in the pelvis, enteritis, mesenteric edema and internal hernia. Pt noted to have BRB OH, with hypotension (placed on levophed gtt) and was taken to the OR for emergency ex lap for possible bowel ischemia. In the OR, internal hernia was reduced, lysis of adhesions, and pt was noted to have mesenteric ischemia of binta limb. One ANALI drain was placed into pelvis, and pt was brought to ICU with open surgical abdominal wound, intubation, checmical paralysis, and sedation. Pt has plans to return to OR on 05/16/18. On 05/15 POD#1, pt anemic (hgb 7.7) and received 2 units of FFP and 2 units of pRBCs with adequate response. Levophed was discontinuated on 05/15 at 1pm. On 05/16, pt returned to OR for re- exploration, Small bowel resection of ileum, small bowel resection of Binta limb with gastrojejunostomy, reversal of bypass, primary anastomosis of ileum-ileum, ileum-ileum, and ileum-jejunum, Gastrostomy tube in bypassed stomach, EGD. Pt is in the ICU for monitoring s/p abdominal surgery. On 05/17, pt was placed on bpap, with lasix given, due to increased work of breathing, and increased pulmonary congestion on cxr. Pt continues to be managed in the ICU for post-op care. Plan: Neuro: - continue to monitor for mental status changes - pt is AAOx3 - analgesia with acetominophen 1g IV q6, dilaudid 1 mg q62 prn, morphine 1 mg prn breakthrough pain Cardio: - maintain MAP > 65 mmHg - BP has been stable, pt remains tachycardia (likely secondary to intermittent pain and fever) Pulm: - maintain spo2 >95% - CXR (05/19) shows improved aeration in the prior low-density vague opacity - mid lung zone -inferred infiltrate. Cardiomegaly and mild pulmonary venous congestion. Bilateral small pleural effusions. - bpap was discontinued yesterday, pt is not in any respiratory distress - encouraged use of incentive spirometer - oral care - continue atrovent GI: - POD#5 s/p Exploratory laparotomy, Reduction of internal hernia, Lysis of adhesions, Drainage of abdominal collections, temporary abdominal closure ( fascia left open), EGD. 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 aeruginosa (pt on merrem) - blood cultures x2 shows no growth after 4 days - urine culture final shows no growth - f/u ID recs Renal: - strict Is and Os - maintain minimum of 0.5 mL/kg/hr - BUN/Cr is stable and wnl - maintain euvolemia - replete electrolytes as needed Endo: - maintain euglycemia - accucheck q6h - ISS low q6h Ppx: protonix for pud; lovenox/SCDs for vte ppx Dispo: Pt will remain in ICU Case was reviewed and discussed with attending physician, Dr. Ruffin
--- NOTE | 2018-05-19 08:38 | RAD ---
Date of service: 05/19/2018 HISTORY: f/u pneumonia COMPARISON: 05/18/2018 at 0712 hours FINDINGS: LUNGS: Ill-defined low-density opacity mid right lung zone previously referenced as infiltrate -now with patchy improved aeration here. Residual pleural parenchymal pathology here mid to right lower lung zone still likely present. . Although study labeled as semi-erect AP -some layering fluid greater right side than left could also contribute to this. PLEURA: Probable small bilateral pleural effusions that on the right may be layering posteriorly. No pneumothorax apparent. CARDIOVASCULAR: Cardiomegaly -similar. Background pulmonary venous congestion -similar OSSEOUS STRUCTURES: No significant abnormalities. VISUALIZED UPPER ABDOMEN: Normal. OTHER FINDINGS: Right internal jugular venous catheter tip in right atrium -as before. NG tube at the GE junction consider advancement of 2 cm. -correlate with surgical procedure regarding the regional left upper quadrant surgical clips here IMPRESSION: Improved aeration in the prior low-density vague opacity -mid lung zone -inferred infiltrate. Correlate clinically Coalescent pulmonary edema can simulate this. Follow-up to complete resolution recommended. Cardiomegaly and mild pulmonary venous congestion findings compatible with mild concomitant pulmonary venous congestion. . Bilateral small pleural effusions that on the right may be layering. Catheters and tubes as above
[2018-05-19] MEDS: HYDROmorphone 1 mg/ml ISec IVP PRN ×6 (08:45→22:03)
[2018-05-19] MEDS: Hydrocortisone 1% Cream (30 GM) TOP SCH ×3 (09:35→17:42)
[2018-05-19] MEDS: Enoxaparin 40 mg Syringe SC SCH (10:00)
[2018-05-19] MEDS ORDERED: Saccharomyces Boulardi 250 mg Cap NG SCH (10:00)
[2018-05-19 10:15] LABS: HDL CHOLESTEROL 14 mg/dL (30-70)
[2018-05-19 10:26] LABS: LDL CHOLESTEROL 38 mg/dL (0-129)
[2018-05-19] MEDS ORDERED: Lidocaine 1% (10 ml) Inj INFIL ONE (11:31)
[2018-05-19] MEDS ORDERED: Lidocaine 1% Inj (20ml) INFIL ONE (12:15)
--- NOTE | 2018-05-19 16:10 | CP.PCM.PN ---
Subjective - Date & Time of Evaluation Date of Evaluation: 05/19/18 Time of Evaluation: 03:35 - Subjective Subjective: dictated Objective - Vital Signs/Intake and Output Vital Signs (last 24 hours): Temp Pulse Resp BP Pulse Ox 100 F H 116 H 23 146/97 H 100 05/19/18 04:00 05/19/18 15:00 05/19/18 15:00 05/19/18 14:56 05/19/18 15:00 Intake and Output: 05/19/18 05/19/18 06:59 18:59 Intake Total 1446 1138 Output Total 3310 1000 Balance -1864 138 - Medications Medications: Current Medications Dextrose (Dextrose 50% Inj) 0 ml IV STAT PRN; Protocol PRN Reason: Hypoglycemia Protocol Last Admin: 05/16/18 23:40 Dose: 50 ml Dextrose (Glutose 15) 0 gm PO ONCE PRN; Protocol PRN Reason: Hypoglycemia Protocol Enoxaparin Sodium (Lovenox) 40 mg SC DAILY [facility] Last Admin: 05/19/18 10:00 Dose: 40 mg Glucagon (Glucagen Diagnostic Kit) 0 mg IM STAT PRN; Protocol PRN Reason: Hypoglycemia Protocol Hydrocortisone (Cortizone 1% Cream) 0 gm TOP TID KATELYN Hydromorphone HCl (Dilaudid) 1 mg IVP Q2H PRN PRN Reason: Pain, moderate (4-7) Last Admin: 05/19/18 13:09 Dose: 1 mg Dextrose (Dextrose 5% In Water 1000 Ml) 1,000 mls @ 0 mls/hr IV .Q0M PRN; Protocol; Per Protocol PRN Reason: Hypoglycemia Protocol Metronidazole (Flagyl) 500 mg in 100 mls @ 100 mls/hr IVPB Q8H KATELYN PRN Reason: Protocol Last Admin: 05/19/18 11:03 Dose: 100 mls/hr Meropenem 1 gm/ Sodium (Chloride) 100 mls @ 100 mls/hr IVPB Q8H [facility] PRN Reason: Protocol Last Admin: 05/19/18 10:00 Dose: 100 mls/hr Aztreonam 2 gm/ Sodium (Chloride) 100 mls @ 100 mls/hr IVPB Q8H [facility] PRN Reason: Protocol Last Admin: 05/19/18 14:34 Dose: 100 mls/hr Sodium Chloride 35 meq/Potassium Phosphate 30 mmole/Magnesium Sulfate 6 meq/ Calcium Chloride 330 mg/Chromium/Copper/Manganese/Zinc 1 ml/ Multivitamins/ Vitamin C 10 ml/ Heparin Sodium ( Porcine) 1,000 units/ Amino Acids 1,035.5278 mls @ 42 mls/hr IV .Q24H ONE Stop: 05/19/18 17:59 Last Admin: 05/18/18 18:38 Dose: 42 mls/hr Vancomycin/Sodium Chloride (Vancomycin 1 Gm/Ns 200 Ml) 1 gm in 200 mls @ 133.333 mls/hr IVPB Q12H [facility] PRN Reason: Protocol Stop: 05/23/18 17:01 Last Admin: 05/19/18 04:33 Dose: 133.333 mls/hr Acetaminophen (Ofirmev) 100 mls @ 400 mls/hr IV Q6 [facility] Stop: 05/20/18 12:01 Last Admin: 05/19/18 13:10 Dose: 400 mls/hr Sodium Chloride 35 meq/Potassium Phosphate 30 mmole/Magnesium Sulfate 6 meq/ Calcium Chloride 320 mg/Multivitamins/Vitamin C 10 ml/Chromium/Copper/Manganese/ Seleni/Zn 1 ml/ Heparin Sodium (Porcine) 1,000 units/ Amino Acids 1,035.4278 mls @ 42 mls/hr IV .Q24H ONE Stop: 05/20/18 17:59 Fat Emulsion Intravenous (Intralipid 20%) 250 mls @ 42 mls/hr IV DAILY@1800 KATELYN Insulin Human Regular (Novolin R) 0 unit SC ACHS [facility] PRN Reason: Protocol Ipratropium Vest (Atrovent) 0.5 mg IH RQ6 [facility] Last Admin: 05/19/18 13:13 Dose: 0.5 mg Lorazepam (Ativan) 0.5 mg IVP Q12 PRN PRN Reason: Anxiety Last Admin: 05/19/18 10:56 Dose: 0.5 mg Morphine Sulfate (Morphine) 1 mg IVP Q4 PRN PRN Reason: Pain, severe (8-10) Last Admin: 05/19/18 14:34 Dose: 1 mg Nicotine (Nicoderm Cq) 1 patch TD DAILY [facility] Last Admin: 05/19/18 09:58 Dose: 1 patch Ondansetron HCl (Zofran Inj) 4 mg IVP Q4 PRN PRN Reason: Nausea/Vomiting Pantoprazole Sodium (Protonix Inj) 40 mg IVP Q12H KATELYN Last Admin: 05/19/18 10:00 Dose: 40 mg - Labs Labs: 05/19/18 06:21 05/19/18 06:21 PT 14.6 SECONDS (9.7-12.2) H 05/19/18 06:21 INR 1.3 05/19/18 06:21 APTT 29 SECONDS (21-34) 05/19/18 06:21
[2018-05-19] MEDS ORDERED: (Novolin R) Insulin Human Regular 100 units/ml vial SC SCH ×2 (16:30→18:00)
[2018-05-19] MEDS: Fat Emulsion 20% IV 250 ML IV SCH (17:41)
[2018-05-19] MEDS ORDERED: TPN#3 IV ONE (18:00)
[2018-05-19] MEDS ORDERED: Saccharomyces Boulardi 250 mg Cap GT SCH (18:00)
--- NOTE | 2018-05-19 20:13 | CP.PCM.PN ---
Subjective - Date & Time of Evaluation Date of Evaluation: 05/19/18 Time of Evaluation: 17:30 - Subjective Subjective: Hospitalist Progress Note Patient was seen and examined at 5:30 PM 05/19/18 ICU Bed 1 Please see Assessment and Plans for details. Currently upon FULL ROS: Diffuse abdominal pain continues (however please note that at the time of my exam patient is able to maintain normal conversation and does not appear to be in any distress). General: AAOx3, Does not appear to be level of pain that she is describing () HEENT: PERRLA, NCA, Nasal Turbinates and oral mucosa are dry, NO Pharyneal erythema/exudate, NO thyromegly, NO lympadenopathy Cardio: NS1 and NS2, NO M/R/G Respiratory: Few scattered course breath sounds with expiration diffusely GI: 1 Sky Drain on Right and 1 Sky Drain on Left and G Tubes in place, Soft , ND, BSx4 are decreased Ext: Pulses are strong and equal Bilateral UE and LE, NO edema, Capillary Refill is 2 second Neuro: CN II through XII are grossly intact (1) Ischemic bowel disease Assessment & Plan: * Dr. Harley (surgery) on the case-->help appreciated * Dr. Samara Denise (Surgery) on the case-->help appreciated * Preoperative/intraoperative/postoperative management per surgery * Dr. Alvarado (GI) on the case-->help appreciated * Dr. Rivera (ID) on the case-->help appreciated * Chest xray (05/14/18): no infiltrate, pleural effusion, or pneumothorax b/l. Diminished inspiratory volume question. No acute cardiovascular disease. * Lactic: 3.6 (prior OR)-->2.4 (post OR)-->2.3-->1.5-->1.6-->0.9 * Patient has had 2 bloody bowel movements started 05/14/18. Patient's rectal: blood. She had reported abdominal pain has worsening since night of admission. Patient required emergent surgical intervention on 05/14/18 and transferred to ICU. * Per operative note (05/14/18): Diagnostic laparoscopy, Exploratory laparotomy, Reduction of internal hernia, Lysis of adhesions, Drainage of abdominal collections, temporary abdominal closure, EGD * Ischemia of yenni limb, internal hernia. Clif[place] drain stitched to distal common limb * ICU evaluation noted: Patient underwent emergency laparotomy for possible ischemic bowel. Patient had GI bleed. In the operating room patient underwent extensive exploratory laparotomy. Significant gangrene of the small bowel noted. Hernia was identified, which was reduced.After that the significant improvement in the vasculature noted. * Patient underwent surgery again on 05/16/18.Re-exploration, Small bowel resection of ileum, small bowel resection of Yenni limb with gastrojejunostomy, reversal of bypass, primary anastomosis of ileum-ileum, ileum-ileum, and ileum- jejunum, Gastrostomy tube in bypassed stomach, EGD * Per surgery, monitor for abdominal compartment syndrome * Recommend TPN. * Will need f/u surgery in 4-6 weeks to restore GI * Patient extubated 05/16/18. Patient is off Propofol. Patient is currently on Dialudid 1 mg IV Q2H * Drains included: NGT Tube, right sky, left sky, gastrostomy tube. * IV abx: * Aztreonam 2 gm IVPB Q8H (active since 05/15/18) * Flagyl 500mg IVPB Q8H (active since 05/15/18) * Meropenem 1 gm IVPB Q8H (active 05/15/18) * Cultures: * Intraoperative Peritoneal Fluid (05/14/18): Pseudomonas sesitive to Meropenem which patient is on * Blood culture (05/15/18): no growth to date * Urine culture: no growth Status: Acute (2) Small bowel obstruction Assessment & Plan: * Secondary to hernia * CT abdomen/Pelvis (05/13/18): Writhing appearance of mesentric vessels. Mesentric edema. No evidence of bowel obstruction. Whirling appearance of mesentric vessels is nonspecific. Prominent mesentric lymph nodes. Mesentric edema. (preop) * Patient has had 2 bloody bowel movements started 05/14/18. Patient's rectal: blood. She had reported abdominal pain has worsening since night of admission. Patient required emergent surgical intervention on 05/14/18 and transferred to ICU. Patient will need a second surgery likely tomorrow on 05/16/18. * Per operative note (05/14/18): Diagnostic laparoscopy, Exploratory laparotomy, Reduction of internal hernia, Lysis of adhesions, Drainage of abdominal collections, temporary abdominal closure, EGD * Ischemia of yenni limb, internal hernia. Clifton drain stitched to distal common limb * ICU evaluation noted: Patient underwent emergency laparotomy for possible ischemic bowel. Patient had GI bleed. In the operating room patient underwent extensive exploratory laparotomy. Significant gangrene of the small bowel noted. Hernia was identified, which was reduced.After that the significant improvement in the vasculature noted. But there is still a segment of bowel not healthy (portion of the alimentary canal from prior gastric bypass surgery--> clarified with surgery resident), * Patient underwent surgery again on 05/16/18.Re-exploration, Small bowel resection of ileum, small bowel resection of Yenni limb with gastrojejunostomy, reversal of bypass, primary anastomosis of ileum-ileum, ileum-ileum, and ileum- jejunum, Gastrostomy tube in bypassed stomach, EGD * Per surgery, monitor for abdominal compartment syndrome * Will need f/u surgery in 4-6 weeks to restore GI Status: Acute (3) Obesity (BMI 30-39.9) Assessment & Plan: * Status post gastric bypass surgery in 2013 * Operative note (2013): Yenni-en-Y gastric bypass surgery Status: Acute (4) Status post gastric bypass for obesity Assessment & Plan: * Status post gastric bypass 2013 * Operative note (2013): Yenni-en-Y gastric bypass surgery Status: Acute (5) History of Asthma Assessment & Plan: * Patient not in acute exacerbation (6) Leukocytosis Assessment & Plan: * Likely secondary to ischemic bowel secondary to small bowel obstruction () and had surgery (05/16/18) * IV abx: * Aztreonam 2 gm IVPB Q8H (active since 05/15/18) * Flagyl 500mg IVPB Q8H (active since 05/15/18) * Meropenem 1 gm IVPB Q8H (active since 05/15/18) * Cultures: * Intraoperative Peritoneal Fluid (05/14/18) : Pseudomonas which is sensitive to Meropenem * Blood culture (05/15/18): NO growth to date * Urine culture (05/15/18): NO growth (7) Diabetes Mellitus (Type 2); controlled Assessment & Plan: * From prior note: * Admittedly non-compliant - has not taken Januvia for one year * Accuchecks Q6H * Hypoglycemic protocol * HbA1c - 6.3 (03/10/17) * hgba1c: /8 * History of gastric bypass surgery (8) Hx of HTN (hypertension) Assessment & Plan: * Since Gastric Bypass has not taken meds (9) Hx of Hypothyroid Assessment & Plan: * From prior note: * Pt admitted non-compliance (10) Hypercholesterolemia Assessment & Plan: * From prior note: * Pt not taking meds * LDL 138, HDL 67, Tchol 220, Trig 112 * History of gastric bypass surgery (11) Anxiety Assessment & Plan: * Patient was taking Xanax for anxiety noted in prior note * Ativan 0.5 mg IV PRN Anxiety (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 Assessment & Plan: * 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 and from my prior note from last hospitalization (13) Smoker Assessment & Plan: * From my prior note: 1ppd x 20 yrs, 1/2 ppd x 3 yrs * Nicotine Patch 21 mg TD 1x/day (14) Prophylactic measure Assessment & Plan: * Lovenox 40 mg SC 1x/day * RIJ TLC 05/14/18 * NGT Tube * Srivastava * Off pressor * Off Paralytic * Off Fentanyl * Protonix 40mg IV Q12H * Zofran 4 mg IV Q4H PRN n/v * Clinimix 5%-25% @ 42 ml/hr * Will start Lactobacillus once patient is able to take material through G tube * Hydrocortisone 1% Cream Topical TID (abdomen around surgical sites) PRN pruritis * Wound vac removed 05/19/18 * Extubated 05/16/18 Status: Acute Franki Denise D.O. Objective - Vital Signs/Intake and Output Vital Signs (last 24 hours): Temp Pulse Resp BP Pulse Ox 99.7 F H 114 H 20 157/101 H 100 05/19/18 16:00 05/19/18 19:00 05/19/18 19:00 05/19/18 18:56 05/19/18 19:00 Intake and Output: 05/19/18 05/20/18 18:59 06:59 Intake Total 1580 Output Total 1900 Balance -320 - Medications Medications: Current Medications Dextrose (Dextrose 50% Inj) 0 ml IV STAT PRN; Protocol PRN Reason: Hypoglycemia Protocol Last Admin: 05/16/18 23:40 Dose: 50 ml Dextrose (Glutose 15) 0 gm PO ONCE PRN; Protocol PRN Reason: Hypoglycemia Protocol Enoxaparin Sodium (Lovenox) 40 mg SC DAILY COUNTS INCLUDE 234 BEDS AT [facility] Last Admin: 05/19/18 10:00 Dose: 40 mg Glucagon (Glucagen Diagnostic Kit) 0 mg IM STAT PRN; Protocol PRN Reason: Hypoglycemia Protocol Hydrocortisone (Cortizone 1% Cream) 0 gm TOP TID COUNTS INCLUDE 234 BEDS AT THE [facility] Last Admin: 05/19/18 17:42 Dose: 1 applic Hydromorphone HCl (Dilaudid) 1 mg IVP Q2H PRN PRN Reason: Pain, moderate (4-7) Last Admin: 05/19/18 19:48 Dose: 1 mg Dextrose (Dextrose 5% In Water 1000 Ml) 1,000 mls @ 0 mls/hr IV .Q0M PRN; Protocol; Per Protocol PRN Reason: Hypoglycemia Protocol Metronidazole (Flagyl) 500 mg in 100 mls @ 100 mls/hr IVPB Q8H KATELYN PRN Reason: Protocol Last Admin: 05/19/18 19:41 Dose: 100 mls/hr Meropenem 1 gm/ Sodium (Chloride) 100 mls @ 100 mls/hr IVPB Q8H COUNTS INCLUDE 234 BEDS AT THE [facility] PRN Reason: Protocol Last Admin: 05/19/18 18:27 Dose: 100 mls/hr Aztreonam 2 gm/ Sodium (Chloride) 100 mls @ 100 mls/hr IVPB Q8H COUNTS INCLUDE 234 BEDS AT THE [facility] PRN Reason: Protocol Last Admin: 05/19/18 14:34 Dose: 100 mls/hr Vancomycin/Sodium Chloride (Vancomycin 1 Gm/Ns 200 Ml) 1 gm in 200 mls @ 133.333 mls/hr IVPB Q12H COUNTS INCLUDE 234 BEDS AT [facility] PRN Reason: Protocol Stop: 05/23/18 17:01 Last Admin: 05/19/18 16:45 Dose: 133.333 mls/hr Acetaminophen (Ofirmev) 100 mls @ 400 mls/hr IV Q6 COUNTS INCLUDE 234 BEDS AT THE [facility] Stop: 05/20/18 12:01 Last Admin: 05/19/18 17:40 Dose: 400 mls/hr Sodium Chloride 35 meq/Potassium Phosphate 30 mmole/Magnesium Sulfate 6 meq/ Calcium Chloride 320 mg/Multivitamins/Vitamin C 10 ml/Chromium/Copper/Manganese/ Seleni/Zn 1 ml/ Heparin Sodium (Porcine) 1,000 units/ Amino Acids 1,035.4278 mls @ 42 mls/hr IV .Q24H ONE Stop: 05/20/18 17:59 Last Admin: 05/19/18 17:42 Dose: 42 mls/hr Fat Emulsion Intravenous (Intralipid 20%) 250 mls @ 42 mls/hr IV DAILY@1800 COUNTS INCLUDE 234 BEDS AT [facility] Last Admin: 05/19/18 17:41 Dose: 42 mls/hr Insulin Human Regular (Novolin R) 0 unit SC Q6 K[facility]ELYN PRN Reason: Protocol Last Admin: 05/19/18 18:26 Dose: Not Given Ipratropium [place] (Atrovent) 0.5 mg IH RQ6 COUNTS INCLUDE 234 BEDS AT THE [facility] Last Admin: 05/19/18 13:13 Dose: 0.5 mg Lorazepam (Ativan) 0.5 mg IVP Q12 PRN PRN Reason: Anxiety Last Admin: 05/19/18 10:56 Dose: 0.5 mg Morphine Sulfate (Morphine) 1 mg IVP Q4 PRN PRN Reason: Pain, severe (8-10) Last Admin: 05/19/18 18:36 Dose: 1 mg Nicotine (Nicoderm Cq) 1 patch TD DAILY COUNTS INCLUDE 234 BEDS AT [facility] Last Admin: 05/19/18 09:58 Dose: 1 patch Ondansetron HCl (Zofran Inj) 4 mg IVP Q4 PRN PRN Reason: Nausea/Vomiting Pantoprazole Sodium (Protonix Inj) 40 mg IVP Q12H COUNTS INCLUDE 234 BEDS AT THE [facility] Last Admin: 05/19/18 10:00 Dose: 40 mg - Labs Labs: 05/19/18 06:21 05/19/18 06:21 PT 14.6 SECONDS (9.7-12.2) H 05/19/18 06:21 INR 1.3 05/19/18 06:21 APTT 29 SECONDS (21-34) 05/19/18 06:21
[2018-05-19 21:35] LABS: ALB/GLOB RATIO 1.1 (1.0-2.1); ALBUMIN 2.5 g/dL (3.5-5.0); ALT/SGPT 99 U/L (9-52); AST/SGOT 42 U/L (14-36); BLOOD UREA NITROGEN 10 mg/dL (7-17); CALCIUM 7.6 mg/dl (8.6-10.4); GFR NON-AFRICAN AMERICAN > 60
[2018-05-19] MEDS ORDERED: Magnesium Sulfate 1 gm in D5W 1 GM/100 ML BAG IVPB ONE (21:41)
[2018-05-19] MEDS: (Novolin R) Insulin Human Regular 100 units/ml vial SC SCH (23:44)
[2018-05-20] MEDS: HYDROmorphone 1 mg/ml ISec IVP PRN ×9 (00:38→23:45)
--- NOTE | 2018-05-20 01:35 | PN ---
Copied To: Guero Rivera MD Attending MD: Guero Rivera MD DATE: 05/19/2018 SUBJECTIVE: The patient was sitting in the chair today, out of bed but she was complaining of abdominal pain. She still has diffuse pain. She, however, did not appear in any distress but she kept on complaining of pain. OBJECTIVE: VITAL SIGNS: T-max is 99.7, heart rate remains 125, blood pressure 137/100, respirations are 21. HEENT: Head is atraumatic, normocephalic. She had oxygen on and has a TLC in the right IJ. NECK: Supple. LUNGS: Clear. HEART: S1, S2 tachycardic. ABDOMEN: Had this wound VAC as well as the drains are still present, and she also had bilious drainage in one of the urinary bags that was also coming out. EXTREMITIES: Had no edema. White count dropped to 11.6 today, hemoglobin is 8.3, hematocrit 24.7, platelet count is 164. INR is 1.3. Sodium is 140; potassium still remains low at 2.6, I guess because lot of secretions are being suctioned, potassium 2.6, being supplemented; chloride 100; anion gap is 8, BUN is 9, and her bandemia has decreased. on the CBC, there are no bands now, and her body fluid culture came out Pseudomonas which is sensitive to meropenem so I have renewed meropenem, Flagyl, and vancomycin for now, and we will continue those. We will probably discontinue Azactam and it is done in the morning, and hopefully, she recovered from this. She still continues to have pain and has asthma from before but the lungs are clear at this time, and she is status post surgery for ischemic bowel x2, and we will follow. Guero Rivera MD
[2018-05-20] MEDS: Ipratropium 0.02% Inhal Soln (0.5 mg/2.5 ml) UD IH SCH ×5 (02:34→19:28)
[2018-05-20] MEDS: Meropenem 1 GM in Sodium Chloride 0.9% 100 ML IVPB SCH ×3 (02:51→19:37)
[2018-05-20] MEDS: metroNIDAZOLE IV 500 mg/100 ml 500 MG/100 ML BAG IVPB SCH ×3 (03:56→20:38)
[2018-05-20] MEDS: Vancomycin 1 gm/NS 200 ml 1 GM/200 ML BAG IVPB SCH ×2 (05:00→16:41)
[2018-05-20 06:07] LABS: BASO % 0.3 % (0.0-2.0); EOS # 0.2 K/uL (0.0-0.7); EOS % 1.7 % (0.0-4.0); HEMOGLOBIN 8.7 g/dL (11.0-16.0); LYMPH # 1.3 K/uL (1.0-4.3); LYMPH % 10.9 % (20.0-40.0); MEAN CELL VOLUME 84.8 fL (81.0-99.0); MEAN CORPUSCULAR HEMOGLOBIN 28.7 pg (27.0-31.0); MEAN CORPUSCULAR HGB CONC 33.8 g/dL (33.0-37.0); MEAN PLATELET VOLUME 7.7 fL (7.2-11.7); MONO # 1.2 K/uL (0.0-0.8); MONO % 10.5 % (0.0-10.0); NEUT % 76.6 % (50.0-75.0); RBC 3.02 Mil/uL (3.80-5.20); RED CELL DISTRIBUTION WIDTH 16.9 % (11.5-14.5); WHITE BLOOD COUNT 11.7 K/uL (4.8-10.8)
[2018-05-20 06:14] LABS: INR 1.4; PROTHROMBIN TIME 14.8 SECONDS (9.7-12.2)
[2018-05-20 06:29] LABS: ALBUMIN 2.5 g/dL (3.5-5.0); ALT/SGPT 88 U/L (9-52); AST/SGOT 40 U/L (14-36); BLOOD UREA NITROGEN 9 mg/dL (7-17); GFR NON-AFRICAN AMERICAN > 60
[2018-05-20] MEDS: Aztreonam 2 GM in Sodium Chloride 0.9% 100 ML IVPB SCH (06:29)
[2018-05-20] MEDS: (Novolin R) Insulin Human Regular 100 units/ml vial SC SCH ×3 (06:30→18:19)
--- NOTE | 2018-05-20 07:53 | CP.PCM.PN ---
Subjective - Date & Time of Evaluation Date of Evaluation: 05/20/18 Time of Evaluation: 07:15 - Subjective Subjective: f/u RB. Denies RB, melena, chills, SZ, cough, hematuria, hemoptysis, tremor Objective - Vital Signs/Intake and Output Vital Signs (last 24 hours): Temp Pulse Resp BP Pulse Ox 98.7 F 122 H 27 H 146/102 H 99 05/20/18 04:00 05/20/18 06:12 05/20/18 06:12 05/20/18 06:12 05/20/18 06:12 Intake and Output: 05/20/18 05/20/18 06:59 18:59 Intake Total 2864 Output Total 4710 Balance -1846 - Medications Medications: Current Medications Dextrose (Dextrose 50% Inj) 0 ml IV STAT PRN; Protocol PRN Reason: Hypoglycemia Protocol Last Admin: 05/16/18 23:40 Dose: 50 ml Dextrose (Glutose 15) 0 gm PO ONCE PRN; Protocol PRN Reason: Hypoglycemia Protocol Enoxaparin Sodium (Lovenox) 40 mg SC DAILY [facility] Last Admin: 05/19/18 10:00 Dose: 40 mg Glucagon (Glucagen Diagnostic Kit) 0 mg IM STAT PRN; Protocol PRN Reason: Hypoglycemia Protocol Hydrocortisone (Cortizone 1% Cream) 0 gm TOP TID [facility] Last Admin: 05/19/18 17:42 Dose: 1 applic Hydromorphone HCl (Dilaudid) 1 mg IVP Q3 PRN PRN Reason: Pain, moderate (4-7) Dextrose (Dextrose 5% In Water 1000 Ml) 1,000 mls @ 0 mls/hr IV .Q0M PRN; Protocol; Per Protocol PRN Reason: Hypoglycemia Protocol Metronidazole (Flagyl) 500 mg in 100 mls @ 100 mls/hr IVPB Q8H [facility] PRN Reason: Protocol Last Admin: 05/20/18 03:56 Dose: 100 mls/hr Meropenem 1 gm/ Sodium (Chloride) 100 mls @ 100 mls/hr IVPB Q8H [facility] PRN Reason: Protocol Last Admin: 05/20/18 02:51 Dose: 100 mls/hr Aztreonam 2 gm/ Sodium (Chloride) 100 mls @ 100 mls/hr IVPB Q8H [facility] PRN Reason: Protocol Last Admin: 05/20/18 06:29 Dose: 100 mls/hr Vancomycin/Sodium Chloride (Vancomycin 1 Gm/Ns 200 Ml) 1 gm in 200 mls @ 133.333 mls/hr IVPB Q12H [facility] PRN Reason: Protocol Stop: 05/23/18 17:01 Last Admin: 05/20/18 05:00 Dose: 133.333 mls/hr Acetaminophen (Ofirmev) 100 mls @ 400 mls/hr IV Q6 [facility] Stop: 05/20/18 12:01 Last Admin: 05/20/18 06:30 Dose: 400 mls/hr Sodium Chloride 35 meq/Potassium Phosphate 30 mmole/Magnesium Sulfate 6 meq/ Calcium Chloride 320 mg/Multivitamins/Vitamin C 10 ml/Chromium/Copper/Manganese/ Seleni/Zn 1 ml/ Heparin Sodium (Porcine) 1,000 units/ Amino Acids 1,035.4278 mls @ 42 mls/hr IV .Q24H [facility] Stop: 05/20/18 17:59 Last Admin: 05/19/18 17:42 Dose: 42 mls/hr Fat Emulsion Intravenous (Intralipid 20%) 250 mls @ 42 mls/hr IV DAILY@1800 [facility] Last Admin: 05/19/18 17:41 Dose: 42 mls/hr Potassium Chloride (Potassium Chloride 20 Meq/100 Ml) 20 meq in 100 mls @ 50 mls/hr IVPB Q1H [facility] Stop: 05/20/18 10:46 Insulin Human Regular (Novolin R) 0 unit SC Q6 [facility] PRN Reason: Protocol Last Admin: 05/20/18 06:30 Dose: Not Given Ipratropium [place] (Atrovent) 0.5 mg IH RQ6 [facility] Last Admin: 05/20/18 02:34 Dose: 0.5 mg Lorazepam (Ativan) 0.5 mg IVP Q12 PRN PRN Reason: Anxiety Last Admin: 05/19/18 23:00 Dose: 0.5 mg Morphine Sulfate (Morphine) 1 mg IVP Q4 PRN PRN Reason: Pain, severe (8-10) Last Admin: 05/20/18 04:10 Dose: 1 mg Nicotine (Nicoderm Cq) 1 patch TD DAILY [facility] Last Admin: 05/19/18 09:58 Dose: 1 patch Ondansetron HCl (Zofran Inj) 4 mg IVP Q4 PRN PRN Reason: Nausea/Vomiting Pantoprazole Sodium (Protonix Inj) 40 mg IVP Q12H [facility] Last Admin: 05/19/18 21:52 Dose: 40 mg - Labs Labs: 05/20/18 05:57 05/20/18 05:57 PT 14.8 SECONDS (9.7-12.2) H 05/20/18 05:57 INR 1.4 05/20/18 05:57 APTT 30 SECONDS (21-34) 05/20/18 05:57 - Respiratory Exam Respiratory Exam: Clear to Ausculation Bilateral - Cardiovascular Exam Cardiovascular Exam: RRR - GI/Abdominal Exam GI & Abdominal Exam: Soft, Tenderness, Normal Bowel Sounds. absent: Rebound - Neurological Exam Neurological Exam: Alert, Awake Assessment and Plan (1) Rectal bleeding Assessment & Plan: intestinal ischemia. s/p SB gangrene. s/p surgery Status: Acute (2) Leucocytosis Assessment & Plan: improving Status: Acute (3) Small bowel obstruction due to adhesions Status: Acute (4) Abdominal pain Status: Acute (5) Asthma Status: Acute (6) HTN (hypertension) Status: Acute (7) Obesity (BMI 30-39.9) Status: Acute (8) Abnormal LFTs Assessment & Plan: improving Status: Acute
--- NOTE | 2018-05-20 08:16 | RAD ---
Date of service: 05/20/2018 HISTORY: f/u pneumonia COMPARISON: 05/19/2018. FINDINGS: Nasogastric tube terminates in the distal esophagus. The right IJV line terminates at the cavoatrial junction LUNGS: There are low lung volumes. There is interval improved aeration in the right lower lobe. PLEURA: Small pleural, no pneumothorax apparent. CARDIOVASCULAR: Normal. OSSEOUS STRUCTURES: No significant abnormalities. VISUALIZED UPPER ABDOMEN: Normal. OTHER FINDINGS: Surgical clips in the left upper quadrant. IMPRESSION: Effusions improving right lower lobe pneumonia. Small pleural effusions. Nasogastric tube terminates in the distal esophagus and further advancement is recommended.
--- NOTE | 2018-05-20 08:27 | CP.PCM.PN ---
Subjective - Date & Time of Evaluation Date of Evaluation: 05/20/18 Time of Evaluation: 07:00 - Subjective Subjective: GENERAL SURGERY PROGRESS NOTE FOR DR. ALAMO (covering for Dr. Haas) Patient seen and examined at bedside in ICU. No acute events overnight. Pt has been afebrile. Reports pain "all over". Denies nausea or vomiting. She passed flatus but has not had a BM since surgery. Pt did PT yesterday. Wound vac removed yesterday and skin sutured with iodaform in between. Iodaform removed this AM. Overnight outputs: NG tube: 1750 Gastrostomy tube: 700cc L Sky: 40cc R sky: 45cc Objective - Vital Signs/Intake and Output Vital Signs (last 24 hours): Temp Pulse Resp BP Pulse Ox 98.7 F 122 H 27 H 146/102 H 99 05/20/18 04:00 05/20/18 06:12 05/20/18 06:12 05/20/18 06:12 05/20/18 06:12 Intake and Output: 05/20/18 05/20/18 06:59 18:59 Intake Total 2864 Output Total 4710 Balance -1846 - Medications Medications: Current Medications Dextrose (Dextrose 50% Inj) 0 ml IV STAT PRN; Protocol PRN Reason: Hypoglycemia Protocol Last Admin: 05/16/18 23:40 Dose: 50 ml Dextrose (Glutose 15) 0 gm PO ONCE PRN; Protocol PRN Reason: Hypoglycemia Protocol Enoxaparin Sodium (Lovenox) 40 mg SC DAILY [facility] Last Admin: 05/19/18 10:00 Dose: 40 mg Glucagon (Glucagen Diagnostic Kit) 0 mg IM STAT PRN; Protocol PRN Reason: Hypoglycemia Protocol Hydrocortisone (Cortizone 1% Cream) 0 gm TOP TID [facility] Last Admin: 05/19/18 17:42 Dose: 1 applic Hydromorphone HCl (Dilaudid) 1 mg IVP Q3 PRN PRN Reason: Pain, moderate (4-7) Dextrose (Dextrose 5% In Water 1000 Ml) 1,000 mls @ 0 mls/hr IV .Q0M PRN; Protocol; Per Protocol PRN Reason: Hypoglycemia Protocol Metronidazole (Flagyl) 500 mg in 100 mls @ 100 mls/hr IVPB Q8H [facility] PRN Reason: Protocol Last Admin: 05/20/18 03:56 Dose: 100 mls/hr Meropenem 1 gm/ Sodium (Chloride) 100 mls @ 100 mls/hr IVPB Q8H [facility] PRN Reason: Protocol Last Admin: 05/20/18 02:51 Dose: 100 mls/hr Aztreonam 2 gm/ Sodium (Chloride) 100 mls @ 100 mls/hr IVPB Q8H [facility] PRN Reason: Protocol Last Admin: 05/20/18 06:29 Dose: 100 mls/hr Vancomycin/Sodium Chloride (Vancomycin 1 Gm/Ns 200 Ml) 1 gm in 200 mls @ 133.333 mls/hr IVPB Q12H [facility] PRN Reason: Protocol Stop: 05/23/18 17:01 Last Admin: 05/20/18 05:00 Dose: 133.333 mls/hr Acetaminophen (Ofirmev) 100 mls @ 400 mls/hr IV Q6 [facility] Stop: 05/20/18 12:01 Last Admin: 05/20/18 06:30 Dose: 400 mls/hr Sodium Chloride 35 meq/Potassium Phosphate 30 mmole/Magnesium Sulfate 6 meq/ Calcium Chloride 320 mg/Multivitamins/Vitamin C 10 ml/Chromium/Copper/Manganese/ Seleni/Zn 1 ml/ Heparin Sodium (Porcine) 1,000 units/ Amino Acids 1,035.4278 mls @ 42 mls/hr IV .Q24H [facility] Stop: 05/20/18 17:59 Last Admin: 05/19/18 17:42 Dose: 42 mls/hr Fat Emulsion Intravenous (Intralipid 20%) 250 mls @ 42 mls/hr IV DAILY@1800 [facility] Last Admin: 05/19/18 17:41 Dose: 42 mls/hr Potassium Chloride (Potassium Chloride 20 Meq/100 Ml) 20 meq in 100 mls @ 50 mls/hr IVPB Q1H [facility] Stop: 05/20/18 10:46 Insulin Human Regular (Novolin R) 0 unit SC Q6 [facility] PRN Reason: Protocol Last Admin: 05/20/18 06:30 Dose: Not Given Ipratropium [place] (Atrovent) 0.5 mg IH RQ6 [facility] Last Admin: 05/20/18 02:34 Dose: 0.5 mg Lorazepam (Ativan) 0.5 mg IVP Q12 PRN PRN Reason: Anxiety Last Admin: 05/19/18 23:00 Dose: 0.5 mg Morphine Sulfate (Morphine) 1 mg IVP Q4 PRN PRN Reason: Pain, severe (8-10) Last Admin: 05/20/18 04:10 Dose: 1 mg Nicotine (Nicoderm Cq) 1 patch TD DAILY [facility] Last Admin: 05/19/18 09:58 Dose: 1 patch Ondansetron HCl (Zofran Inj) 4 mg IVP Q4 PRN PRN Reason: Nausea/Vomiting Pantoprazole Sodium (Protonix Inj) 40 mg IVP Q12H [facility] Last Admin: 05/19/18 21:52 Dose: 40 mg - Labs Labs: 05/20/18 05:57 05/20/18 05:57 PT 14.8 SECONDS (9.7-12.2) H 05/20/18 05:57 INR 1.4 05/20/18 05:57 APTT 30 SECONDS (21-34) 05/20/18 05:57 - Constitutional Appears: Non-toxic, No Acute Distress - Head Exam Head Exam: ATRAUMATIC, NORMAL INSPECTION - Respiratory Exam Respiratory Exam: NORMAL BREATHING PATTERN. absent: Respiratory Distress - Cardiovascular Exam Cardiovascular Exam: Tachycardia - GI/Abdominal Exam GI & Abdominal Exam: Soft, Tenderness (luana-incisional tenderness). absent: Distended, Firm, Guarding, Rigid Additional comments: Bilateral Sky drains in place with serous output Gastrostomy tube in place to gravity NG tube in place - Neurological Exam Neurological Exam: Alert, Awake, Oriented x3 - Psychiatric Exam Psychiatric exam: Normal Affect, Normal Mood - Skin Skin Exam: Dry, Normal Color, Warm Assessment and Plan - Assessment and Plan (Free Text) Assessment: 37yo F with PMHx of [id number] gastric bypass in 2013 now with bowel ischemia secondary to internal hernia. POD#6 s/p Exploratory laparotomy, Reduction of internal hernia, DANNI, Drainage of abdominal collections, temporary abdominal closure (fascia left open), EGD. POD#4 s/p Re-exploration, Small bowel resection of ileum, small bowel resection of Yenni limb including previous gastrojejunostomy, reversal of bypass, primary anastomosis of ileum-ileum, ileum-ileum, and ileum-jejunum, Gastrostomy tube in bypassed stomach, EGD Outputs: NG tube in gastric pouch: 1750 Gastrostomy tube in bypassed stomach: 700cc from 7p-7a Right Sky: 45cc serous from 7p-7a Left Sky: 40cc serous from 7p-7a - Afebrile over past 24 hrs, remains tachycardic - Leukocytosis 11.7, on Flagyl, Aztreonam, Merrem, Vanco per ID - Cx from OR of peritoneal fluid: pseudomonas aeruginosa - Blood & Urine cx negative - Continue strict NPO w/ NG tube to low intermittent suction in gastric pouch and gastrostomy tube to gravity - Possible trickle feeds through G tube on Wednesday - Will do CT with PO contrast prior to tube feeds - On TPN by ICU team - Ofirmev was added yesterday. Decreased dilaudid to 1Q3 - DVT Prophylaxis: Lovenox - Will need surgery in 4-6 weeks to restore GI continuity - Wound vac removed yesterday. Skin loosely closed with vertical mattress sutures. - May remove Srivastava - Encouraged OOB, ambulation and IS use - Continue PT - Continue ICU care - Discussed plan with Dr. Mack Dailey PGY-4
[2018-05-20] MEDS: Enoxaparin 40 mg Syringe SC SCH (09:32)
[2018-05-20] MEDS: Hydrocortisone 1% Cream (30 GM) TOP SCH ×3 (09:46→18:44)
--- NOTE | 2018-05-20 09:57 | CP.CCUPN ---
<Jose Angel Cornelius - Last Filed: 05/20/18 11:33> CCU Subjective - Physician Review Subjective (Free Text): Jose Angel Cornelius DO PGY-1, ICU progress note for Dr. Hunter Denise Pt was seen and examined at bedside. Pt reports moderate diffuse abdominal pain. Pt was noted to have a dark tarry bowel movement prior to evaluation, with bright red blood on the tissue after wiping. Pt denies fever, chills, headache, weakness, dizziness, lightheadedness, chest pain, shortness of breath , n/v, hematemasis. Pt is producing adequate amount of clear urine via ojeda catheter. Pt also endorses that her menstrual cycle started today, but adamantly denies the possibility of accidentally wiping her vagina while cleaning her rectum. A 12-point ROS was reviewed and is otherwise unremarkable. CCU Objective - Vital Signs / Intake & Output Vital Signs (Last 4 hours): Vital Signs Temp Pulse Resp BP Pulse Ox 05/20/18 08:00 100.2 F H 05/20/18 07:56 119 H 22 144/101 H 99 05/20/18 06:56 114 H 22 147/99 H 99 05/20/18 06:12 122 H 27 H 146/102 H 99 Intake and Output (Last 8hrs): Intake & Output 05/19/18 05/20/18 05/20/18 22:59 06:59 14:59 Intake Total 1512 1878 Output Total 2075 3535 Balance -563 -1657 Weight 80 kg Intake: Intake, IV Amount 1262 1178 R prox port 100 100 Right Distal Port 300 100 Internal Jugular Right Medial Port 300 600 Internal Jugular Right Proximal Port 462 378 Right Proximal Port 100 Internal Jugular Oral 250 700 Output: Gastric Amount 300 700 Right Nares 300 Stomach 700 Drainage 300 1535 Left Lower Abdomen 40 Right Lower Abdomen 45 Right Nare 300 1450 Urine 1475 1300 Urine, Voided 1475 1300 - Physical Exam Head: Positive for: Atraumatic, Normocephalic Pupils: Positive for: PERRL Extroacular Muscles: Positive for: EOMI Conjunctiva: Positive for: Normal Mouth: Positive for: Moist Mucous Membranes Nose (External): Positive for: Other ((+) NGT on low int suction) Neck: Positive for: Normal Range of Motion, Other ((+) central line in right IJ) Respiratory/Chest: Positive for: Clear to Auscultation, Good Air Exchange. Negative for: Respiratory Distress, Wheezes, Rales Cardiovascular: Positive for: Normal S1, S2, Tachycardic Abdomen: Positive for: Tenderness (diffuse tenderness; soft abdomen), Other ( (+ ) large vertical incision with sutures in place; no signs of local infection; C/ D/I, no erythema, (+) bilateral anali drains with serosanguinous fluid, (+) g-tube draining dark, bilious fluid). Negative for: Peritoneal Signs Rectal: Positive for: Rectal Tenderness, Normal Rectal Tone, Other ((+) thin dark black liquid on glove after examination; fobt sent). Negative for: Occult Blood, Gross Blood, Hemorrhoids ((-) external hemorrhoids), Fissures Upper Extremity: Positive for: Normal Inspection, NORMAL PULSES Lower Extremity: Positive for: Normal Inspection, NORMAL PULSES. Negative for: CALF TENDERNESS Neurological: Positive for: GCS=15 Skin: Positive for: Warm, Dry Psychiatric: Positive for: Alert, Oriented x 3 - Medications Active Medications: Active Medications Generic Name Dose Route Start Last Admin Trade Name Freq PRN Reason Stop Dose Admin Dextrose 0 ml 05/15/18 08:36 05/16/18 23:40 Dextrose 50% Inj IV 50 ml STAT PRN Administration Hypoglycemia Protocol Protocol Dextrose 0 gm 05/15/18 08:36 Glutose 15 PO ONCE PRN Hypoglycemia Protocol Protocol Enoxaparin Sodium 40 mg 05/19/18 10:00 05/20/18 09:32 Lovenox SC 40 mg DAILY KATELYN Administration Glucagon 0 mg 05/15/18 08:36 Glucagen Diagnostic Kit IM STAT PRN Hypoglycemia Protocol Protocol Hydrocortisone 0 gm 05/19/18 10:00 05/20/18 09:46 Cortizone 1% Cream TOP 1 applic TID KATELYN Administration Hydromorphone HCl 1 mg 05/20/18 07:36 Dilaudid IVP Q3 PRN Pain, moderate (4-7) Dextrose 1,000 mls @ 0 mls/hr 05/15/18 08:36 Dextrose 5% In Water 1000 Ml IV .Q0M PRN Hypoglycemia Protocol Protocol Per Protocol Metronidazole 500 mg in 100 mls @ 100 mls/hr 05/15/18 12:00 05/20/18 03:56 Flagyl IVPB 100 mls/hr Q8H KATELYN Administration Protocol Meropenem 1 gm/ Sodium 100 mls @ 100 mls/hr 05/15/18 11:00 05/20/18 02:51 Chloride IVPB 100 mls/hr Q8H KATELYN Administration Protocol Aztreonam 2 gm/ Sodium 100 mls @ 100 mls/hr 05/15/18 14:00 05/20/18 06:29 Chloride IVPB 100 mls/hr Q8H KATELYN Administration Protocol Vancomycin/Sodium Chloride 1 gm in 200 mls @ 133.333 mls/hr 05/18/18 17:00 05:00 Vancomycin 1 Gm/Ns 200 Ml IVPB 05/23/18 17:01 133.333 mls/hr Q12H KATELYN Administration Protocol Acetaminophen 100 mls @ 400 mls/hr 05/19/18 12:00 05/20/18 06:30 Ofirmev IV 05/20/18 12:01 400 mls/hr Q6 KATELYN Administration Sodium Chloride 35 meq/ 1,035.4278 mls @ 42 mls/hr 05/19/18 18:00 05/19/18 17 :42 Potassium Phosphate 30 mmole/ IV 05/20/18 17:59 42 mls/hr Magnesium Sulfate 6 meq/ .Q24H ONE Administration Calcium Chloride 320 mg/ Multivitamins/Vitamin C 10 ml/ Chromium/Copper/Manganese/ Seleni/Zn 1 ml/ Heparin Sodium (Porcine) 1,000 units/ Amino Acids Fat Emulsion Intravenous 250 mls @ 42 mls/hr 05/19/18 18:00 05/19/18 17:41 Intralipid 20% IV 42 mls/hr DAILY@1800 KATELYN Administration Potassium Chloride 20 meq in 100 mls @ 50 mls/hr 05/20/18 07:45 05/20/18 09: 32 Potassium Chloride 20 Meq/100 Ml IVPB 05/20/18 10:46 50 mls/hr Q1H KATELYN Administration Insulin Human Regular 0 unit 05/20/18 00:00 05/20/18 06:30 Novolin R SC Not Given Q6 KATELYN Protocol Ipratropium [place] 0.5 mg 05/17/18 14:00 05/20/18 02:34 Atrovent IH 0.5 mg RQ6 KATELYN Administration Lorazepam 0.5 mg 05/18/18 10:06 05/19/18 23:00 Ativan IVP 0.5 mg Q12 PRN Administration Anxiety Morphine Sulfate 1 mg 05/18/18 14:45 05/20/18 08:46 Morphine IVP 1 mg Q4 PRN Administration Pain, severe (8-10) Nicotine 1 patch 05/18/18 10:00 05/20/18 09:32 Nicoderm Cq TD 1 patch DAILY KATELYN Administration Ondansetron HCl 4 mg 05/14/18 02:57 Zofran Inj IVP Q4 PRN Nausea/Vomiting Pantoprazole Sodium 40 mg 05/16/18 10:00 05/20/18 09:32 Protonix Inj IVP 40 mg Q12H KATELYN Administration - Patient Studies Lab Studies: Microbiology Studies 05/15/18 12:51 Blood Culture - Preliminary Blood-Thru Central Line NO GROWTH AFTER 4 DAYS 05/15/18 12:51 Blood Culture - Preliminary Blood-Thru Central Line NO GROWTH AFTER 4 DAYS 05/14/18 16:56 Gram Stain - Final Peritoneal Fluid Body Fluid Culture - Final Pseudomonas Aeruginosa Lab Studies 05/20/18 05/20/18 05/20/18 Range/Units 05:57 05:57 05:57 WBC 11.7 H (4.8-10.8) K/uL RBC 3.02 L (3.80-5.20) Mil/uL Hgb 8.7 L (11.0-16.0) g/dL Hct 25.6 L (34.0-47.0) % MCV 84.8 (81.0-99.0) fL MCH 28.7 (27.0-31.0) pg MCHC 33.8 (33.0-37.0) g/dL RDW 16.9 H (11.5-14.5) % Plt Count 218 (130-400) K/uL MPV 7.7 (7.2-11.7) fL Neut % (Auto) 76.6 H (50.0-75.0) % Lymph % (Auto) 10.9 L (20.0-40.0) % Ralls % (Auto) 10.5 H (0.0-10.0) % Eos % (Auto) 1.7 (0.0-4.0) % Baso % (Auto) 0.3 (0.0-2.0) % Neut # (Auto) 9.0 H (1.8-7.0) K/uL Lymph # (Auto) 1.3 (1.0-4.3) K/uL Ralls # (Auto) 1.2 H (0.0-0.8) K/uL Eos # (Auto) 0.2 (0.0-0.7) K/uL Baso # (Auto) 0.0 (0.0-0.2) K/uL PT 14.8 H (9.7-12.2) SECONDS INR 1.4 APTT 30 (21-34) SECONDS Sodium 138 (132-148) mmol/L Potassium 3.4 L (3.6-5.2) mmol/L Chloride 101 (98-107) mmol/L Carbon Dioxide 30 (22-30) mmol/L Anion Gap 10 (10-20) BUN 9 (7-17) mg/dL Creatinine 0.4 L (0.7-1.2) mg/dL Est GFR ( Amer) > 60 Est GFR (Non-Af Amer) > 60 POC Glucose (mg/dL) (65-110) mg/dL Random Glucose 132 H (65-105) mg/dL Calcium 8.0 L (8.6-10.4) mg/dl Phosphorus 2.7 (2.5-4.5) mg/dL Magnesium 1.9 (1.6-2.3) mg/dL Total Bilirubin 1.1 (0.2-1.3) mg/dL AST 40 H (14-36) U/L ALT 88 H (9-52) U/L Alkaline Phosphatase 129 H (38-126) U/L Total Protein 5.0 L (6.3-8.3) g/dL Albumin 2.5 L (3.5-5.0) g/dL Globulin 2.5 (2.2-3.9) gm/dL Albumin/Globulin Ratio 1.0 (1.0-2.1) Triglycerides (0-149) mg/dL Cholesterol (0-199) mg/dL LDL Cholesterol Direct (0-129) mg/dL HDL Cholesterol (30-70) mg/dL 05/19/18 05/19/18 05/19/18 Range/Units 23:17 21:17 17:46 WBC (4.8-10.8) K/uL RBC (3.80-5.20) Mil/uL Hgb (11.0-16.0) g/dL Hct (34.0-47.0) % MCV (81.0-99.0) fL MCH (27.0-31.0) pg MCHC (33.0-37.0) g/dL RDW (11.5-14.5) % Plt Count (130-400) K/uL MPV (7.2-11.7) fL Neut % (Auto) (50.0-75.0) % Lymph % (Auto) (20.0-40.0) % Ralls % (Auto) (0.0-10.0) % Eos % (Auto) (0.0-4.0) % Baso % (Auto) (0.0-2.0) % Neut # (Auto) (1.8-7.0) K/uL Lymph # (Auto) (1.0-4.3) K/uL Ralls # (Auto) (0.0-0.8) K/uL Eos # (Auto) (0.0-0.7) K/uL Baso # (Auto) (0.0-0.2) K/uL PT (9.7-12.2) SECONDS INR APTT (21-34) SECONDS Sodium 137 (132-148) mmol/L Potassium 3.2 L (3.6-5.2) mmol/L Chloride 102 (98-107) mmol/L Carbon Dioxide 29 (22-30) mmol/L Anion Gap 10 (10-20) BUN 10 (7-17) mg/dL Creatinine 0.4 L (0.7-1.2) mg/dL Est GFR ( Amer) > 60 Est GFR (Non-Af Amer) > 60 POC Glucose (mg/dL) 145 H 150 H (65-110) mg/dL Random Glucose 149 H (65-105) mg/dL Calcium 7.6 L (8.6-10.4) mg/dl Phosphorus 2.8 (2.5-4.5) mg/dL Magnesium 1.8 (1.6-2.3) mg/dL Total Bilirubin 1.3 (0.2-1.3) mg/dL AST 42 H D (14-36) U/L ALT 99 H (9-52) U/L Alkaline Phosphatase 117 (38-126) U/L Total Protein 4.8 L (6.3-8.3) g/dL Albumin 2.5 L (3.5-5.0) g/dL Globulin 2.3 (2.2-3.9) gm/dL Albumin/Globulin Ratio 1.1 (1.0-2.1) Triglycerides (0-149) mg/dL Cholesterol (0-199) mg/dL LDL Cholesterol Direct (0-129) mg/dL HDL Cholesterol (30-70) mg/dL 05/19/18 05/19/18 Range/Units 13:23 06:21 WBC (4.8-10.8) K/uL RBC (3.80-5.20) Mil/uL Hgb (11.0-16.0) g/dL Hct (34.0-47.0) % MCV (81.0-99.0) fL MCH (27.0-31.0) pg MCHC (33.0-37.0) g/dL RDW (11.5-14.5) % Plt Count (130-400) K/uL MPV (7.2-11.7) fL Neut % (Auto) (50.0-75.0) % Lymph % (Auto) (20.0-40.0) % Ralls % (Auto) (0.0-10.0) % Eos % (Auto) (0.0-4.0) % Baso % (Auto) (0.0-2.0) % Neut # (Auto) (1.8-7.0) K/uL Lymph # (Auto) (1.0-4.3) K/uL Ralls # (Auto) (0.0-0.8) K/uL Eos # (Auto) (0.0-0.7) K/uL Baso # (Auto) (0.0-0.2) K/uL PT (9.7-12.2) SECONDS INR APTT (21-34) SECONDS Sodium (132-148) mmol/L Potassium (3.6-5.2) mmol/L Chloride (98-107) mmol/L Carbon Dioxide (22-30) mmol/L Anion Gap (10-20) BUN (7-17) mg/dL Creatinine (0.7-1.2) mg/dL Est GFR ( Amer) Est GFR (Non-Af Amer) POC Glucose (mg/dL) 133 H (65-110) mg/dL Random Glucose (65-105) mg/dL Calcium (8.6-10.4) mg/dl Phosphorus (2.5-4.5) mg/dL Magnesium (1.6-2.3) mg/dL Total Bilirubin (0.2-1.3) mg/dL AST (14-36) U/L ALT (9-52) U/L Alkaline Phosphatase (38-126) U/L Total Protein (6.3-8.3) g/dL Albumin (3.5-5.0) g/dL Globulin (2.2-3.9) gm/dL Albumin/Globulin Ratio (1.0-2.1) Triglycerides 226 H D (0-149) mg/dL Cholesterol 104 (0-199) mg/dL LDL Cholesterol Direct 38 (0-129) mg/dL HDL Cholesterol 14 L (30-70) mg/dL Laboratory Results - last 24 hr 05/19/18 05/19/18 05/19/18 06:21 13:23 17:46 WBC RBC Hgb Hct MCV MCH MCHC RDW Plt Count MPV Neut % (Auto) Lymph % (Auto) Ralls % (Auto) Eos % (Auto) Baso % (Auto) Neut # (Auto) Lymph # (Auto) Ralls # (Auto) Eos # (Auto) Baso # (Auto) PT INR APTT Sodium Potassium Chloride Carbon Dioxide Anion Gap BUN Creatinine Est GFR ( Amer) Est GFR (Non-Af Amer) POC Glucose (mg/dL) 133 H 150 H Random Glucose Calcium Phosphorus Magnesium Total Bilirubin AST ALT Alkaline Phosphatase Total Protein Albumin Globulin Albumin/Globulin Ratio Triglycerides 226 H D Cholesterol 104 LDL Cholesterol Direct 38 HDL Cholesterol 14 L 05/19/18 05/19/18 05/20/18 21:17 23:17 05:57 WBC 11.7 H RBC 3.02 L Hgb 8.7 L Hct 25.6 L MCV 84.8 MCH 28.7 MCHC 33.8 RDW 16.9 H Plt Count 218 MPV 7.7 Neut % (Auto) 76.6 H Lymph % (Auto) 10.9 L Ralls % (Auto) 10.5 H Eos % (Auto) 1.7 Baso % (Auto) 0.3 Neut # (Auto) 9.0 H Lymph # (Auto) 1.3 Ralls # (Auto) 1.2 H Eos # (Auto) 0.2 Baso # (Auto) 0.0 PT INR APTT Sodium 137 Potassium 3.2 L Chloride 102 Carbon Dioxide 29 Anion Gap 10 BUN 10 Creatinine 0.4 L Est GFR ( Amer) > 60 Est GFR (Non-Af Amer) > 60 POC Glucose (mg/dL) 145 H Random Glucose 149 H Calcium 7.6 L Phosphorus 2.8 Magnesium 1.8 Total Bilirubin 1.3 AST 42 H D ALT 99 H Alkaline Phosphatase 117 Total Protein 4.8 L Albumin 2.5 L Globulin 2.3 Albumin/Globulin Ratio 1.1 Triglycerides Cholesterol LDL Cholesterol Direct HDL Cholesterol 05/20/18 05/20/18 05:57 05:57 WBC RBC Hgb Hct MCV MCH MCHC RDW Plt Count MPV Neut % (Auto) Lymph % (Auto) Ralls % (Auto) Eos % (Auto) Baso % (Auto) Neut # (Auto) Lymph # (Auto) Ralls # (Auto) Eos # (Auto) Baso # (Auto) PT 14.8 H INR 1.4 APTT 30 Sodium 138 Potassium 3.4 L Chloride 101 Carbon Dioxide 30 Anion Gap 10 BUN 9 Creatinine 0.4 L Est GFR ( Amer) > 60 Est GFR (Non-Af Amer) > 60 POC Glucose (mg/dL) Random Glucose 132 H Calcium 8.0 L Phosphorus 2.7 Magnesium 1.9 Total Bilirubin 1.1 AST 40 H ALT 88 H Alkaline Phosphatase 129 H Total Protein 5.0 L Albumin 2.5 L Globulin 2.5 Albumin/Globulin Ratio 1.0 Triglycerides Cholesterol LDL Cholesterol Direct HDL Cholesterol Fingerstick Blood Sugar Results: 125 Review of Systems - Review of Systems All systems: reviewed and no additional remarkable complaints except (as per HPI ) Critical Care Progress Note - Extremities/Vascular Does the Patient have a Central Venous Catheter?: Yes Insertion Site: Internal Jugular Vein (will be removed today, PICC line to be placed) Does the Patient have a Ojeda Catheter?: Yes (will be removed todat) - Prophylaxis GI Prophylaxis GI: PPI - Prophylaxis DVT Prophylaxis DVT: SCDs - Nutrition Nutrition: Nutrition Category Date Time Status NPO Diet [DIET] Diets 05/14/18 Breakfast Active Assessment/Plan - Assessment and Plan (Free Text) Assessment: This is a 37 year old female with PMH of recurrent SBOs s/p gastric bypass (2013 ), HTN, HLD, DM2, obesity, gastritis, asthma who was BIBA to ED on 05/14/18 with complaints of 1 day history of severe abdominal pain associated with 3 episodes of NBNB emesis. Abd/pelv CT was positive for SBO, with small amount of free fluid in the pelvis, enteritis, mesenteric edema and internal hernia. Pt noted to have BRB [place], with hypotension (placed on levophed gtt) and was taken to the OR for emergency ex lap for possible bowel ischemia. In the OR, internal hernia was reduced, lysis of adhesions, and pt was noted to have mesenteric ischemia of yenni limb. One ANALI drain was placed into pelvis, and pt was brought to ICU with open surgical abdominal wound, intubation, checmical paralysis, and sedation. Pt has plans to return to OR on 05/16/18. On 05/15 POD#1, pt anemic (hgb 7.7) and received 2 units of FFP and 2 units of pRBCs with adequate response. Levophed was discontinuated on 05/15 at 1pm. On 05/16, pt returned to OR for re- exploration, Small bowel resection of ileum, small bowel resection of Yenni limb with gastrojejunostomy, reversal of bypass, primary anastomosis of ileum-ileum, ileum-ileum, and ileum-jejunum, Gastrostomy tube in bypassed stomach, EGD. Pt is in the ICU for monitoring s/p abdominal surgery. On 05/17, pt was placed on bpap, with lasix given, due to increased work of breathing, and increased pulmonary congestion on cxr. Pt noted to have melanous bowel movement today, with BRB on tissue after wiping. Surgical team was made aware. Pt continues to be managed in the ICU for post-op care. Plan: Neuro: - continue to monitor for mental status changes - pt is AAOx3 - analgesia with acetominophen 1g IV q6, dilaudid 1 mg q3 prn, morphine 1 mg prn breakthrough pain Cardio: - maintain MAP > 65 mmHg - BP is stable, Pt tachycardic in the 110s (possibly due to pain, or occult bleeding) - plan to remove right IJ central line and insert PICC line Pulm: - maintain spo2 >92% - CXR (05/20) shows effusions improving right lower love pneumonia, small pleural effusions. - continue to encourage use of incentive spirometer - oral care - continue atrovent GI: - POD#6 s/p Exploratory laparotomy, Reduction of internal hernia, Lysis of adhesions, Drainage of abdominal collections, temporary abdominal closure ( fascia left open), EGD. - POD#4 s/p Re-exploration, Small bowel resection of ileum, small bowel resection of Yenni limb with gastrojejunostomy, reversal of bypass, primary anastomosis of ileum-ileum, ileum-ileum, and ileum-jejunum, Gastrostomy tube in bypassed stomach, EGD - large midline vertical incision, no signs of infection at this time - bilateral anali drains, g-tube in place - TPN feeds will continue through newly inserted PICC line - NPO - no meds or feeding through g-tube until POD #5 as per surgery - NGT on low int suction as per surgery - AST/ALT/ALP are downtrending (40/88/129) - protonix for pud ppx - Pt noted to have melanous bm today, with positive FOBT, surgery team has been notified - OOB to chair via PT - f/u surgery recs Heme: - H/h stable - lovenox 40 sc for vte ppx ID: - tmax 100.2; continue acetominophen 1g IV q6 - leukocytosis is uptrending (14.9), with bandemia (10) - discontinue azactam - continue vanco, merrem, flagyl - peritoneal fluid culture final shows P. aeruginosa (pt on merrem) - blood cultures x2 shows no growth after 4 days - urine culture final shows no growth - f/u ID recs Renal: - strict Is and Os - maintain minimum of 0.5 mL/kg/hr - BUN/Cr is stable and wnl - maintain euvolemia - replete electrolytes as needed Endo: - maintain euglycemia - accucheck q6h - ISS low q6h Ppx: protonix for pud; lovenox/SCDs for vte ppx Dispo: Pt will remain in ICU Case was reviewed and discussed with attending physician, Dr. Hunter Denise <Isha Denise M - Last Filed: 05/20/18 17:45> CCU Objective - Vital Signs / Intake & Output Vital Signs (Last 4 hours): Vital Signs Temp Pulse Resp BP Pulse Ox 05/20/18 16:36 122 H 27 H 147/99 H 99 05/20/18 16:11 123 H 31 H 97 05/20/18 16:00 98.4 F 121 H 27 H 99 05/20/18 15:32 119 H 29 H 140/99 H 98 05/20/18 15:14 119 H 24 99 05/20/18 15:10 122 H 25 H 05/20/18 15:00 117 H 26 H 99 05/20/18 14:10 121 H 12 155/90 H 99 05/20/18 14:00 114 H 22 99 Intake and Output (Last 8hrs): Intake & Output 05/20/18 05/20/18 05/20/18 06:59 14:59 22:59 Intake Total 1878 1036 84 Output Total 3535 900 Balance -1657 136 84 Weight 176 lb 5.917 oz Intake: Intake, IV Amount 1178 1036 84 R prox port 100 Right Distal Port 100 500 Internal Jugular Right Medial Port 600 200 Internal Jugular Right Proximal Port 378 336 84 Oral 700 Output: Gastric Amount 700 Stomach 700 Drainage 1535 Left Lower Abdomen 40 Right Lower Abdomen 45 Right Nare 1450 Urine 1300 900 Urethral (Ojeda) 700 Urine, Voided 1300 200 Other: # Bowel Movements 1 - Medications Active Medications: Active Medications Generic Name Dose Route Start Last Admin Trade Name Freq PRN Reason Stop Dose Admin Dextrose 0 ml 05/15/18 08:36 05/16/18 23:40 Dextrose 50% Inj IV 50 ml STAT PRN Administration Hypoglycemia Protocol Protocol Dextrose 0 gm 05/15/18 08:36 Glutose 15 PO ONCE PRN Hypoglycemia Protocol Protocol Enoxaparin Sodium 40 mg 05/19/18 10:00 05/20/18 09:32 Lovenox SC 40 mg DAILY KATELYN Administration Glucagon 0 mg 05/15/18 08:36 Glucagen Diagnostic Kit IM STAT PRN Hypoglycemia Protocol Protocol Hydrocortisone 0 gm 05/19/18 10:00 05/20/18 13:58 Cortizone 1% Cream TOP 1 applic TID KATELYN Administration Hydromorphone HCl 1 mg 05/20/18 07:36 05/20/18 17:09 Dilaudid IVP 1 mg Q3 PRN Administration Pain, moderate (4-7) Dextrose 1,000 mls @ 0 mls/hr 05/15/18 08:36 Dextrose 5% In Water 1000 Ml IV .Q0M PRN Hypoglycemia Protocol Protocol Per Protocol Metronidazole 500 mg in 100 mls @ 100 mls/hr 05/15/18 12:00 05/20/18 12:32 Flagyl IVPB 100 mls/hr Q8H KATELYN Administration Protocol Meropenem 1 gm/ Sodium 100 mls @ 100 mls/hr 05/15/18 11:00 05/20/18 11:14 Chloride IVPB 100 mls/hr Q8H KATELYN Administration Protocol Vancomycin/Sodium Chloride 1 gm in 200 mls @ 133.333 mls/hr 05/18/18 17:00 16:41 Vancomycin 1 Gm/Ns 200 Ml IVPB 05/23/18 17:01 133.333 mls/hr Q12H KATELYN Administration Protocol Sodium Chloride 35 meq/ 1,035.4278 mls @ 42 mls/hr 05/19/18 18:00 05/19/18 17 :42 Potassium Phosphate 30 mmole/ IV 05/20/18 17:59 42 mls/hr Magnesium Sulfate 6 meq/ .Q24H ONE Administration Calcium Chloride 320 mg/ Multivitamins/Vitamin C 10 ml/ Chromium/Copper/Manganese/ Seleni/Zn 1 ml/ Heparin Sodium (Porcine) 1,000 units/ Amino Acids Fat Emulsion Intravenous 250 mls @ 42 mls/hr 05/19/18 18:00 05/20/18 16:59 Intralipid 20% IV 42 mls/hr DAILY@1800 KATELYN Administration Sodium Chloride 35 meq/ 1,032.2278 mls @ 42 mls/hr 05/20/18 18:00 05/20/18 17 :00 Potassium Phosphate 30 mmole/ IV 05/21/18 17:59 42 mls/hr Magnesium Sulfate 6 meq/ .Q24H ONE Administration Multivitamins/Vitamin C 10 ml/ Chromium/Copper/Manganese/ Seleni/Zn 1 ml/ Heparin Sodium (Porcine) 1,000 units/ Amino Acids Insulin Human Regular 0 unit 05/20/18 00:00 05/20/18 12:40 Novolin R SC 1 unit Q6 KATELYN Administration Protocol Ipratropium [place] 0.5 mg 05/20/18 15:15 05/20/18 16:35 Atrovent IH 0.5 mg RQ6 KATELYN Administration Lorazepam 0.5 mg 05/18/18 10:06 05/20/18 12:27 Ativan IVP 0.5 mg Q12 PRN Administration Anxiety Morphine Sulfate 1 mg 05/18/18 14:45 05/20/18 15:56 Morphine IVP 1 mg Q4 PRN Administration Pain, severe (8-10) Nicotine 1 patch 05/18/18 10:00 05/20/18 09:32 Nicoderm Cq TD 1 patch DAILY KATELYN Administration Ondansetron HCl 4 mg 05/14/18 02:57 Zofran Inj IVP Q4 PRN Nausea/Vomiting Pantoprazole Sodium 40 mg 05/16/18 10:00 05/20/18 09:32 Protonix Inj IVP 40 mg Q12H KATELYN Administration Vitamin A 1 ea 05/20/18 10:26 05/20/18 11:10 Vitamin A & D Oint Ud Foilpak TOP 1 ea Q8 PRN Administration dry lips - Patient Studies Lab Studies: Microbiology Studies 05/15/18 12:51 Blood Culture - Final Blood-Thru Central Line NO GROWTH AFTER 5 DAYS Gram Stain - Final TEST NOT PERFORMED 05/15/18 12:51 Blood Culture - Final Blood-Thru Central Line NO GROWTH AFTER 5 DAYS Gram Stain - Final TEST NOT PERFORMED Lab Studies 05/20/18 05/20/18 05/20/18 Range/Units 15:53 15:53 11:47 WBC (4.8-10.8) K/uL RBC (3.80-5.20) Mil/uL Hgb (11.0-16.0) g/dL Hct (34.0-47.0) % MCV (81.0-99.0) fL MCH (27.0-31.0) pg MCHC (33.0-37.0) g/dL RDW (11.5-14.5) % Plt Count (130-400) K/uL MPV (7.2-11.7) fL Neut % (Auto) (50.0-75.0) % Lymph % (Auto) (20.0-40.0) % Ralls % (Auto) (0.0-10.0) % Eos % (Auto) (0.0-4.0) % Baso % (Auto) (0.0-2.0) % Neut # (Auto) (1.8-7.0) K/uL Lymph # (Auto) (1.0-4.3) K/uL Ralls # (Auto) (0.0-0.8) K/uL Eos # (Auto) (0.0-0.7) K/uL Baso # (Auto) (0.0-0.2) K/uL Neutrophils % (Manual) (50-75) % Band Neutrophils % (0-2) % Lymphocytes % (Manual) (20-40) % Reactive Lymphs % (0-0) % Monocytes % (Manual) (0-10) % Eosinophils % (Manual) (0-4) % Toxic Granulation Platelet Estimate (NORMAL) Large Platelets Hypochromasia (manual) Anisocytosis (manual) PT (9.7-12.2) SECONDS INR APTT (21-34) SECONDS Sodium 138 (132-148) mmol/L Potassium 4.2 (3.6-5.2) mmol/L Chloride 103 (98-107) mmol/L Carbon Dioxide 26 (22-30) mmol/L Anion Gap 13 (10-20) BUN 11 (7-17) mg/dL Creatinine 0.4 L (0.7-1.2) mg/dL Est GFR ( Amer) > 60 Est GFR (Non-Af Amer) > 60 POC Glucose (mg/dL) 152 H (65-110) mg/dL Random Glucose 178 H (65-105) mg/dL Calcium 8.1 L (8.6-10.4) mg/dl Phosphorus (2.5-4.5) mg/dL Magnesium 1.8 (1.6-2.3) mg/dL Total Bilirubin (0.2-1.3) mg/dL AST (14-36) U/L ALT (9-52) U/L Alkaline Phosphatase (38-126) U/L Total Protein (6.3-8.3) g/dL Albumin (3.5-5.0) g/dL Globulin (2.2-3.9) gm/dL Albumin/Globulin Ratio (1.0-2.1) Stool Occult Blood (NEGATIVE) Random Vancomycin < 5.0 ug/mL 05/20/18 05/20/18 05/20/18 Range/Units 10:41 10:41 05:57 WBC 14.9 H (4.8-10.8) K/uL RBC 3.12 L (3.80-5.20) Mil/uL Hgb 9.0 L (11.0-16.0) g/dL Hct 26.8 L (34.0-47.0) % MCV 85.8 (81.0-99.0) fL MCH 28.7 (27.0-31.0) pg MCHC 33.5 (33.0-37.0) g/dL RDW 17.2 H (11.5-14.5) % Plt Count 237 (130-400) K/uL MPV 7.8 (7.2-11.7) fL Neut % (Auto) 81.6 H (50.0-75.0) % Lymph % (Auto) 9.4 L (20.0-40.0) % Ralls % (Auto) 7.6 (0.0-10.0) % Eos % (Auto) 1.1 (0.0-4.0) % Baso % (Auto) 0.3 (0.0-2.0) % Neut # (Auto) 12.2 H (1.8-7.0) K/uL Lymph # (Auto) 1.4 (1.0-4.3) K/uL Ralls # (Auto) 1.1 H (0.0-0.8) K/uL Eos # (Auto) 0.2 (0.0-0.7) K/uL Baso # (Auto) 0.0 (0.0-0.2) K/uL Neutrophils % (Manual) 69 (50-75) % Band Neutrophils % 10 H (0-2) % Lymphocytes % (Manual) 10 L (20-40) % Reactive Lymphs % 1 H (0-0) % Monocytes % (Manual) 8 (0-10) % Eosinophils % (Manual) 2 (0-4) % Toxic Granulation Present Platelet Estimate Normal (NORMAL) Large Platelets Present Hypochromasia (manual) Slight Anisocytosis (manual) Slight PT 14.8 H (9.7-12.2) SECONDS INR 1.4 APTT 30 (21-34) SECONDS Sodium (132-148) mmol/L Potassium (3.6-5.2) mmol/L Chloride (98-107) mmol/L Carbon Dioxide (22-30) mmol/L Anion Gap (10-20) BUN (7-17) mg/dL Creatinine (0.7-1.2) mg/dL Est GFR ( Amer) Est GFR (Non-Af Amer) POC Glucose (mg/dL) (65-110) mg/dL Random Glucose (65-105) mg/dL Calcium (8.6-10.4) mg/dl Phosphorus (2.5-4.5) mg/dL Magnesium (1.6-2.3) mg/dL Total Bilirubin (0.2-1.3) mg/dL AST (14-36) U/L ALT (9-52) U/L Alkaline Phosphatase (38-126) U/L Total Protein (6.3-8.3) g/dL Albumin (3.5-5.0) g/dL Globulin (2.2-3.9) gm/dL Albumin/Globulin Ratio (1.0-2.1) Stool Occult Blood Positive H (NEGATIVE) Random Vancomycin ug/mL 05/20/18 05/20/18 05/20/18 Range/Units 05:57 05:57 05:14 WBC 11.7 H (4.8-10.8) K/uL RBC 3.02 L (3.80-5.20) Mil/uL Hgb 8.7 L (11.0-16.0) g/dL Hct 25.6 L (34.0-47.0) % MCV 84.8 (81.0-99.0) fL MCH 28.7 (27.0-31.0) pg MCHC 33.8 (33.0-37.0) g/dL RDW 16.9 H (11.5-14.5) % Plt Count 218 (130-400) K/uL MPV 7.7 (7.2-11.7) fL Neut % (Auto) 76.6 H (50.0-75.0) % Lymph % (Auto) 10.9 L (20.0-40.0) % Ralls % (Auto) 10.5 H (0.0-10.0) % Eos % (Auto) 1.7 (0.0-4.0) % Baso % (Auto) 0.3 (0.0-2.0) % Neut # (Auto) 9.0 H (1.8-7.0) K/uL Lymph # (Auto) 1.3 (1.0-4.3) K/uL Ralls # (Auto) 1.2 H (0.0-0.8) K/uL Eos # (Auto) 0.2 (0.0-0.7) K/uL Baso # (Auto) 0.0 (0.0-0.2) K/uL Neutrophils % (Manual) (50-75) % Band Neutrophils % (0-2) % Lymphocytes % (Manual) (20-40) % Reactive Lymphs % (0-0) % Monocytes % (Manual) (0-10) % Eosinophils % (Manual) (0-4) % Toxic Granulation Platelet Estimate (NORMAL) Large Platelets Hypochromasia (manual) Anisocytosis (manual) PT (9.7-12.2) SECONDS INR APTT (21-34) SECONDS Sodium 138 (132-148) mmol/L Potassium 3.4 L (3.6-5.2) mmol/L Chloride 101 (98-107) mmol/L Carbon Dioxide 30 (22-30) mmol/L Anion Gap 10 (10-20) BUN 9 (7-17) mg/dL Creatinine 0.4 L (0.7-1.2) mg/dL Est GFR ( Amer) > 60 Est GFR (Non-Af Amer) > 60 POC Glucose (mg/dL) 125 H (65-110) mg/dL Random Glucose 132 H (65-105) mg/dL Calcium 8.0 L (8.6-10.4) mg/dl Phosphorus 2.7 (2.5-4.5) mg/dL Magnesium 1.9 (1.6-2.3) mg/dL Total Bilirubin 1.1 (0.2-1.3) mg/dL AST 40 H (14-36) U/L ALT 88 H (9-52) U/L Alkaline Phosphatase 129 H (38-126) U/L Total Protein 5.0 L (6.3-8.3) g/dL Albumin 2.5 L (3.5-5.0) g/dL Globulin 2.5 (2.2-3.9) gm/dL Albumin/Globulin Ratio 1.0 (1.0-2.1) Stool Occult Blood (NEGATIVE) Random Vancomycin ug/mL 05/19/18 05/19/18 05/19/18 Range/Units 23:17 21:17 17:46 WBC (4.8-10.8) K/uL RBC (3.80-5.20) Mil/uL Hgb (11.0-16.0) g/dL Hct (34.0-47.0) % MCV (81.0-99.0) fL MCH (27.0-31.0) pg MCHC (33.0-37.0) g/dL RDW (11.5-14.5) % Plt Count (130-400) K/uL MPV (7.2-11.7) fL Neut % (Auto) (50.0-75.0) % Lymph % (Auto) (20.0-40.0) % Ralls % (Auto) (0.0-10.0) % Eos % (Auto) (0.0-4.0) % Baso % (Auto) (0.0-2.0) % Neut # (Auto) (1.8-7.0) K/uL Lymph # (Auto) (1.0-4.3) K/uL Ralls # (Auto) (0.0-0.8) K/uL Eos # (Auto) (0.0-0.7) K/uL Baso # (Auto) (0.0-0.2) K/uL Neutrophils % (Manual) (50-75) % Band Neutrophils % (0-2) % Lymphocytes % (Manual) (20-40) % Reactive Lymphs % (0-0) % Monocytes % (Manual) (0-10) % Eosinophils % (Manual) (0-4) % Toxic Granulation Platelet Estimate (NORMAL) Large Platelets Hypochromasia (manual) Anisocytosis (manual) PT (9.7-12.2) SECONDS INR APTT (21-34) SECONDS Sodium 137 (132-148) mmol/L Potassium 3.2 L (3.6-5.2) mmol/L Chloride 102 (98-107) mmol/L Carbon Dioxide 29 (22-30) mmol/L Anion Gap 10 (10-20) BUN 10 (7-17) mg/dL Creatinine 0.4 L (0.7-1.2) mg/dL Est GFR ( Amer) > 60 Est GFR (Non-Af Amer) > 60 POC Glucose (mg/dL) 145 H 150 H (65-110) mg/dL Random Glucose 149 H (65-105) mg/dL Calcium 7.6 L (8.6-10.4) mg/dl Phosphorus 2.8 (2.5-4.5) mg/dL Magnesium 1.8 (1.6-2.3) mg/dL Total Bilirubin 1.3 (0.2-1.3) mg/dL AST 42 H D (14-36) U/L ALT 99 H (9-52) U/L Alkaline Phosphatase 117 (38-126) U/L Total Protein 4.8 L (6.3-8.3) g/dL Albumin 2.5 L (3.5-5.0) g/dL Globulin 2.3 (2.2-3.9) gm/dL Albumin/Globulin Ratio 1.1 (1.0-2.1) Stool Occult Blood (NEGATIVE) Random Vancomycin ug/mL Laboratory Results - last 24 hr 05/19/18 05/19/18 05/19/18 17:46 21:17 23:17 WBC RBC Hgb Hct MCV MCH MCHC RDW Plt Count MPV Neut % (Auto) Lymph % (Auto) Ralls % (Auto) Eos % (Auto) Baso % (Auto) Neut # (Auto) Lymph # (Auto) Ralls # (Auto) Eos # (Auto) Baso # (Auto) Neutrophils % (Manual) Band Neutrophils % Lymphocytes % (Manual) Reactive Lymphs % Monocytes % (Manual) Eosinophils % (Manual) Toxic Granulation Platelet Estimate Large Platelets Hypochromasia (manual) Anisocytosis (manual) PT INR APTT Sodium 137 Potassium 3.2 L Chloride 102 Carbon Dioxide 29 Anion Gap 10 BUN 10 Creatinine 0.4 L Est GFR ( Amer) > 60 Est GFR (Non-Af Amer) > 60 POC Glucose (mg/dL) 150 H 145 H Random Glucose 149 H Calcium 7.6 L Phosphorus 2.8 Magnesium 1.8 Total Bilirubin 1.3 AST 42 H D ALT 99 H Alkaline Phosphatase 117 Total Protein 4.8 L Albumin 2.5 L Globulin 2.3 Albumin/Globulin Ratio 1.1 Stool Occult Blood Random Vancomycin 05/20/18 05/20/18 05/20/18 05:14 05:57 05:57 WBC 11.7 H RBC 3.02 L Hgb 8.7 L Hct 25.6 L MCV 84.8 MCH 28.7 MCHC 33.8 RDW 16.9 H Plt Count 218 MPV 7.7 Neut % (Auto) 76.6 H Lymph % (Auto) 10.9 L Ralls % (Auto) 10.5 H Eos % (Auto) 1.7 Baso % (Auto) 0.3 Neut # (Auto) 9.0 H Lymph # (Auto) 1.3 Ralls # (Auto) 1.2 H Eos # (Auto) 0.2 Baso # (Auto) 0.0 Neutrophils % (Manual) Band Neutrophils % Lymphocytes % (Manual) Reactive Lymphs % Monocytes % (Manual) Eosinophils % (Manual) Toxic Granulation Platelet Estimate Large Platelets Hypochromasia (manual) Anisocytosis (manual) PT INR APTT Sodium 138 Potassium 3.4 L Chloride 101 Carbon Dioxide 30 Anion Gap 10 BUN 9 Creatinine 0.4 L Est GFR ( Amer) > 60 Est GFR (Non-Af Amer) > 60 POC Glucose (mg/dL) 125 H Random Glucose 132 H Calcium 8.0 L Phosphorus 2.7 Magnesium 1.9 Total Bilirubin 1.1 AST 40 H ALT 88 H Alkaline Phosphatase 129 H Total Protein 5.0 L Albumin 2.5 L Globulin 2.5 Albumin/Globulin Ratio 1.0 Stool Occult Blood Random Vancomycin 05/20/18 05/20/18 05/20/18 05:57 10:41 10:41 WBC 14.9 H RBC 3.12 L Hgb 9.0 L Hct 26.8 L MCV 85.8 MCH 28.7 MCHC 33.5 RDW 17.2 H Plt Count 237 MPV 7.8 Neut % (Auto) 81.6 H Lymph % (Auto) 9.4 L Ralls % (Auto) 7.6 Eos % (Auto) 1.1 Baso % (Auto) 0.3 Neut # (Auto) 12.2 H Lymph # (Auto) 1.4 Ralls # (Auto) 1.1 H Eos # (Auto) 0.2 Baso # (Auto) 0.0 Neutrophils % (Manual) 69 Band Neutrophils % 10 H Lymphocytes % (Manual) 10 L Reactive Lymphs % 1 H Monocytes % (Manual) 8 Eosinophils % (Manual) 2 Toxic Granulation Present Platelet Estimate Normal Large Platelets Present Hypochromasia (manual) Slight Anisocytosis (manual) Slight PT 14.8 H INR 1.4 APTT 30 Sodium Potassium Chloride Carbon Dioxide Anion Gap BUN Creatinine Est GFR ( Amer) Est GFR (Non-Af Amer) POC Glucose (mg/dL) Random Glucose Calcium Phosphorus Magnesium Total Bilirubin AST ALT Alkaline Phosphatase Total Protein Albumin Globulin Albumin/Globulin Ratio Stool Occult Blood Positive H Random Vancomycin 05/20/18 05/20/18 05/20/18 11:47 15:53 15:53 WBC RBC Hgb Hct MCV MCH MCHC RDW Plt Count MPV Neut % (Auto) Lymph % (Auto) Ralls % (Auto) Eos % (Auto) Baso % (Auto) Neut # (Auto) Lymph # (Auto) Ralls # (Auto) Eos # (Auto) Baso # (Auto) Neutrophils % (Manual) Band Neutrophils % Lymphocytes % (Manual) Reactive Lymphs % Monocytes % (Manual) Eosinophils % (Manual) Toxic Granulation Platelet Estimate Large Platelets Hypochromasia (manual) Anisocytosis (manual) PT INR APTT Sodium 138 Potassium 4.2 Chloride 103 Carbon Dioxide 26 Anion Gap 13 BUN 11 Creatinine 0.4 L Est GFR ( Amer) > 60 Est GFR (Non-Af Amer) > 60 POC Glucose (mg/dL) 152 H Random Glucose 178 H Calcium 8.1 L Phosphorus Magnesium 1.8 Total Bilirubin AST ALT Alkaline Phosphatase Total Protein Albumin Globulin Albumin/Globulin Ratio Stool Occult Blood Random Vancomycin < 5.0 Critical Care Progress Note - Nutrition Nutrition: Nutrition Category Date Time Status NPO Diet [DIET] Diets 05/14/18 Breakfast Active Assessment/Plan - Assessment and Plan (Free Text) Assessment: Above resident note reviewed and verified. Patient with long post op course. Patient currently NPO, being managed by surgery for post op drainage. -Patient tolerating IVF and TPN -PICC line placement today and possible removal of central line -will d/c ojeda -Patient currently on double pseudomonsl coverage, will switch to single abx agent -check vanco level, continue abx as per ID -(+)FOB, hb/stable, unknown possible 2nd menstruation, check -Patient remains off pressors -continue dvt/pud ppx -monitor serial cbc and chemistry -Start tube feeds when surgery agrees. d/w ICU team and surgery team. - Date & Time Date: 05/20/18 Time: 17:45
[2018-05-20] MEDS ORDERED: Vitamins A & D Oint UD Foilpak TOP PRN (10:26)
[2018-05-20 10:46] LABS: BASO % 0.3 % (0.0-2.0); EOS # 0.2 K/uL (0.0-0.7); EOS % 1.1 % (0.0-4.0); LYMPH # 1.4 K/uL (1.0-4.3); LYMPH % 9.4 % (20.0-40.0); MEAN CELL VOLUME 85.8 fL (81.0-99.0); MEAN CORPUSCULAR HEMOGLOBIN 28.7 pg (27.0-31.0); MEAN CORPUSCULAR HGB CONC 33.5 g/dL (33.0-37.0); MEAN PLATELET VOLUME 7.8 fL (7.2-11.7); MONO # 1.1 K/uL (0.0-0.8); MONO % 7.6 % (0.0-10.0); NEUT # 12.2 K/uL (1.8-7.0); NEUT % 81.6 % (50.0-75.0); PLATELET COUNT 237 K/uL (130-400); RBC 3.12 Mil/uL (3.80-5.20); RED CELL DISTRIBUTION WIDTH 17.2 % (11.5-14.5); WHITE BLOOD COUNT 14.9 K/uL (4.8-10.8)
[2018-05-20 11:14] LABS: BANDS 10 % (0-2); EOSINOPHIL 2 % (0-4); LYMPHOCYTE 10 % (20-40); MONOCYTE 8 % (0-10); NEUTROPHIL 69 % (50-75); PLATELET ESTIMATE NORMAL (NORMAL); REACTIVE LYMPHOCYTES 1 % (0-0); TOTAL CELLS COUNTED 100
[2018-05-20 11:15] LABS: ANISOCYTOSIS SLIGHT; HYPOCHROMIC SLIGHT; LARGE PLATELETS PRESENT; TOXIC GRANULATION PRESENT
--- NOTE | 2018-05-20 14:06 | RAD ---
Date of service: 05/20/2018 HISTORY: s/p picc line placement COMPARISON: 05/20/2018 at 7:14 a.m. FINDINGS: The left PICC line is detected cranially and likely terminates in the left IJV. The right IJV line terminates at the cavoatrial junction. The nasogastric tube terminates in the distal esophagus. LUNGS: The lungs are well inflated. There is persistent airspace disease in the right lower lobe. There is mild pulmonary venous congestion. PLEURA: Suspect small pleural effusions, no pneumothorax apparent. CARDIOVASCULAR: Normal. OSSEOUS STRUCTURES: No significant abnormalities. VISUALIZED UPPER ABDOMEN: Normal. OTHER FINDINGS: None. IMPRESSION: Left PICC line is directed cranially and likely terminates in the left IJV. The right IJV line terminates at the cavoatrial junction. The naso gastric tube terminates in the distal esophagus. No change in presumable right lower lobe pneumonia and small effusions.
--- NOTE | 2018-05-20 15:26 | CP.PCM.PN ---
Subjective - Date & Time of Evaluation Date of Evaluation: 05/20/18 Time of Evaluation: 03:00 - Subjective Subjective: dictated Objective - Vital Signs/Intake and Output Vital Signs (last 24 hours): Temp Pulse Resp BP Pulse Ox 98.9 F 117 H 26 H 155/90 H 99 05/20/18 12:00 05/20/18 15:00 05/20/18 15:00 05/20/18 14:10 05/20/18 15:00 Intake and Output: 05/20/18 05/20/18 06:59 18:59 Intake Total 2864 1078 Output Total 4710 900 Balance -1846 178 - Medications Medications: Current Medications Dextrose (Dextrose 50% Inj) 0 ml IV STAT PRN; Protocol PRN Reason: Hypoglycemia Protocol Last Admin: 05/16/18 23:40 Dose: 50 ml Dextrose (Glutose 15) 0 gm PO ONCE PRN; Protocol PRN Reason: Hypoglycemia Protocol Enoxaparin Sodium (Lovenox) 40 mg SC DAILY [facility] Last Admin: 05/20/18 09:32 Dose: 40 mg Glucagon (Glucagen Diagnostic Kit) 0 mg IM STAT PRN; Protocol PRN Reason: Hypoglycemia Protocol Hydrocortisone (Cortizone 1% Cream) 0 gm TOP TID [facility] Last Admin: 05/20/18 13:58 Dose: 1 applic Hydromorphone HCl (Dilaudid) 1 mg IVP Q3 PRN PRN Reason: Pain, moderate (4-7) Last Admin: 05/20/18 13:54 Dose: 1 mg Dextrose (Dextrose 5% In Water 1000 Ml) 1,000 mls @ 0 mls/hr IV .Q0M PRN; Protocol; Per Protocol PRN Reason: Hypoglycemia Protocol Metronidazole (Flagyl) 500 mg in 100 mls @ 100 mls/hr IVPB Q8H [facility] PRN Reason: Protocol Last Admin: 05/20/18 12:32 Dose: 100 mls/hr Meropenem 1 gm/ Sodium (Chloride) 100 mls @ 100 mls/hr IVPB Q8H [facility] PRN Reason: Protocol Last Admin: 05/20/18 11:14 Dose: 100 mls/hr Vancomycin/Sodium Chloride (Vancomycin 1 Gm/Ns 200 Ml) 1 gm in 200 mls @ 133.333 mls/hr IVPB Q12H [facility] PRN Reason: Protocol Stop: 05/23/18 17:01 Last Admin: 05/20/18 05:00 Dose: 133.333 mls/hr Sodium Chloride 35 meq/Potassium Phosphate 30 mmole/Magnesium Sulfate 6 meq/ Calcium Chloride 320 mg/Multivitamins/Vitamin C 10 ml/Chromium/Copper/Manganese/ Seleni/Zn 1 ml/ Heparin Sodium (Porcine) 1,000 units/ Amino Acids 1,035.4278 mls @ 42 mls/hr IV .Q24H ONE Stop: 05/20/18 17:59 Last Admin: 05/19/18 17:42 Dose: 42 mls/hr Fat Emulsion Intravenous (Intralipid 20%) 250 mls @ 42 mls/hr IV DAILY@1800 [facility] Last Admin: 05/19/18 17:41 Dose: 42 mls/hr Sodium Chloride 35 meq/Potassium Phosphate 30 mmole/Magnesium Sulfate 6 meq/ Multivitamins/Vitamin C 10 ml/Chromium/Copper/Manganese/Seleni/Zn 1 ml/ Heparin Sodium (Porcine) 1,000 units/ Amino Acids 1,032.2278 mls @ 42 mls/hr IV .Q24H ONE Stop: 05/21/18 17:59 Insulin Human Regular (Novolin R) 0 unit SC Q6 [facility] PRN Reason: Protocol Last Admin: 05/20/18 12:40 Dose: 1 unit Ipratropium [place] (Atrovent) 0.5 mg IH [id number] [facility] Lorazepam (Ativan) 0.5 mg IVP Q12 PRN PRN Reason: Anxiety Last Admin: 05/20/18 12:27 Dose: 0.5 mg Morphine Sulfate (Morphine) 1 mg IVP Q4 PRN PRN Reason: Pain, severe (8-10) Last Admin: 05/20/18 08:46 Dose: 1 mg Nicotine (Nicoderm Cq) 1 patch TD DAILY [facility] Last Admin: 05/20/18 09:32 Dose: 1 patch Ondansetron HCl (Zofran Inj) 4 mg IVP Q4 PRN PRN Reason: Nausea/Vomiting Pantoprazole Sodium (Protonix Inj) 40 mg IVP Q12H [facility] Last Admin: 05/20/18 09:32 Dose: 40 mg Vitamin A (Vitamin A & D Oint Ud Foilpak) 1 ea TOP Q8 PRN PRN Reason: dry lips Last Admin: 05/20/18 11:10 Dose: 1 ea - Labs Labs: 05/20/18 10:41 05/20/18 05:57 PT 14.8 SECONDS (9.7-12.2) H 05/20/18 05:57 INR 1.4 05/20/18 05:57 APTT 30 SECONDS (21-34) 05/20/18 05:57
[2018-05-20 16:35] LABS: BLOOD UREA NITROGEN 11 mg/dL (7-17); GFR NON-AFRICAN AMERICAN > 60
[2018-05-20 16:36] LABS: CALCIUM 8.1 mg/dl (8.6-10.4)
[2018-05-20] MEDS: Fat Emulsion 20% IV 250 ML IV SCH (16:59)
[2018-05-20] MEDS ORDERED: TPN#4 IV ONE (18:00)
--- NOTE | 2018-05-20 20:12 | CP.PCM.PN ---
Subjective - Date & Time of Evaluation Date of Evaluation: 05/20/18 Time of Evaluation: 18:15 - Subjective Subjective: Hospitalist Progress Note Patient was seen and examined at 6:15 PM 05/20/18 ICU Bed 1 Please see Assessment and Plans for details. Currently upon FULL ROS: Patine continues to complain of diffuse abdominal pain continues (however please note that at the time of my exam patient is able to maintain normal conversation and does not appear to be in any distress) and prior to me entering her room, patient was witnessed using her phone and smiling. General: AAOx3, Does not appear to be level of pain at the time of my exam HEENT: PERRLA, NCA, Nasal Turbinates and oral mucosa are dry, NO Pharyneal erythema/exudate, NO thyromegly, NO lympadenopathy Cardio: NS1 and NS2, NO M/R/G Respiratory: Few scattered course breath sounds with expiration diffusely GI: 1 Sky Drain on Right and 1 Sky Drain on Left and G Tubes in place, Soft , ND, BSx4 are decreased Ext: Pulses are strong and equal Bilateral UE and LE, NO edema, Capillary Refill is 2 second Neuro: CN II through XII are grossly intact (1) Ischemic bowel disease Assessment & Plan: * Dr. Harley (surgery) on the case-->help appreciated * Dr. Samara Denise (Surgery) on the case-->help appreciated * Preoperative/intraoperative/postoperative management per surgery * Dr. Alvarado (GI) on the case-->help appreciated * Dr. Rivera (ID) on the case-->help appreciated * Chest xray (05/14/18): no infiltrate, pleural effusion, or pneumothorax b/l. Diminished inspiratory volume question. No acute cardiovascular disease. * Lactic: 3.6 (prior OR)-->2.4 (post OR)-->2.3-->1.5-->1.6-->0.9 * Patient has had 2 bloody bowel movements started 05/14/18. Patient's rectal: blood. She had reported abdominal pain has worsening since night of admission. Patient required emergent surgical intervention on 05/14/18 and transferred to ICU. * Per operative note (05/14/18): Diagnostic laparoscopy, Exploratory laparotomy, Reduction of internal hernia, Lysis of adhesions, Drainage of abdominal collections, temporary abdominal closure, EGD * Ischemia of yenni limb, internal hernia. Venus drain stitched to distal common limb * ICU evaluation noted: Patient underwent emergency laparotomy for possible ischemic bowel. Patient had GI bleed. In the operating room patient underwent extensive exploratory laparotomy. Significant gangrene of the small bowel noted. Hernia was identified, which was reduced.After that the significant improvement in the vasculature noted. * Patient underwent surgery again on 05/16/18.Re-exploration, Small bowel resection of ileum, small bowel resection of Yenni limb with gastrojejunostomy, reversal of bypass, primary anastomosis of ileum-ileum, ileum-ileum, and ileum- jejunum, Gastrostomy tube in bypassed stomach, EGD * Per surgery, monitor for abdominal compartment syndrome * Recommend TPN. * Will need f/u surgery in 4-6 weeks to restore GI * Patient extubated 05/16/18. Patient is off Propofol. Patient is currently on Dialudid 1 mg IV Q2H * Drains included: NGT Tube, right sky, left sky, gastrostomy tube. * IV abx: * Vancomycin 1 gm IV Q12H (active since 05/18/18) * Flagyl 500mg IVPB Q8H (active since 05/15/18) * Meropenem 1 gm IVPB Q8H (active 05/15/18) * Cultures: * Intraoperative Peritoneal Fluid (05/14/18): Pseudomonas sesitive to Meropenem which patient is on * Blood culture (05/15/18): no growth to date * Urine culture: no growth Status: Acute (2) Small bowel obstruction Assessment & Plan: * Secondary to hernia * CT abdomen/Pelvis (05/13/18): Writhing appearance of mesentric vessels. Mesentric edema. No evidence of bowel obstruction. Whirling appearance of mesentric vessels is nonspecific. Prominent mesentric lymph nodes. Mesentric edema. (preop) * Patient has had 2 bloody bowel movements started 05/14/18. Patient's rectal: blood. She had reported abdominal pain has worsening since night of admission. Patient required emergent surgical intervention on 05/14/18 and transferred to ICU. Patient will need a second surgery likely tomorrow on 05/16/18. * Per operative note (05/14/18): Diagnostic laparoscopy, Exploratory laparotomy, Reduction of internal hernia, Lysis of adhesions, Drainage of abdominal collections, temporary abdominal closure, EGD * Ischemia of yenni limb, internal hernia. Venus drain stitched to distal common limb * ICU evaluation noted: Patient underwent emergency laparotomy for possible ischemic bowel. Patient had GI bleed. In the operating room patient underwent extensive exploratory laparotomy. Significant gangrene of the small bowel noted. Hernia was identified, which was reduced.After that the significant improvement in the vasculature noted. But there is still a segment of bowel not healthy (portion of the alimentary canal from prior gastric bypass surgery--> clarified with surgery resident), * Patient underwent surgery again on 05/16/18.Re-exploration, Small bowel resection of ileum, small bowel resection of Yenni limb with gastrojejunostomy, reversal of bypass, primary anastomosis of ileum-ileum, ileum-ileum, and ileum- jejunum, Gastrostomy tube in bypassed stomach, EGD * Per surgery, monitor for abdominal compartment syndrome * Will need f/u surgery in 4-6 weeks to restore GI Status: Acute (3) Obesity (BMI 30-39.9) Assessment & Plan: * Status post gastric bypass surgery in 2013 * Operative note (2013): Yenni-en-Y gastric bypass surgery Status: Acute (4) Status post gastric bypass for obesity Assessment & Plan: * Status post gastric bypass 2013 * Operative note (2013): Yenni-en-Y gastric bypass surgery Status: Acute (5) History of Asthma Assessment & Plan: * Patient not in acute exacerbation (6) Leukocytosis Assessment & Plan: * Likely secondary to ischemic bowel secondary to small bowel obstruction () and had surgery (05/16/18) * IV abx: * Vancomycin 1 gm IV Q12H (active since 05/18/18) * Flagyl 500mg IVPB Q8H (active since 05/15/18) * Meropenem 1 gm IVPB Q8H (active since 05/15/18) * Cultures: * Intraoperative Peritoneal Fluid (05/14/18) : Pseudomonas which is sensitive to Meropenem * Blood culture (05/15/18): NO growth to date * Urine culture (05/15/18): NO growth (7) Diabetes Mellitus (Type 2); controlled Assessment & Plan: * From prior note: * Admittedly non-compliant - has not taken Januvia for one year * Accuchecks Q6H * Hypoglycemic protocol * HbA1c - 6.3 (03/10/17) * hgba1c: 02/15 * History of gastric bypass surgery (8) Hx of HTN (hypertension) Assessment & Plan: * Since Gastric Bypass has not taken meds (9) Hx of Hypothyroid Assessment & Plan: * From prior note: * Pt admitted non-compliance (10) Hypercholesterolemia Assessment & Plan: * From prior note: * Pt not taking meds * LDL 138, HDL 67, Tchol 220, Trig 112 * History of gastric bypass surgery (11) Anxiety Assessment & Plan: * Patient was taking Xanax for anxiety noted in prior note * Ativan 0.5 mg IV PRN Anxiety (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 Assessment & Plan: * 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 and from my prior note from last hospitalization (13) Smoker Assessment & Plan: * From my prior note: 1ppd x 20 yrs, 1/2 ppd x 3 yrs * Nicotine Patch 21 mg TD 1x/day (14) Prophylactic measure Assessment & Plan: * Lovenox 40 mg SC 1x/day * RIJ TLC 05/14/18 * NGT Tube * Srivastava * Off pressor * Off Paralytic * Off Fentanyl * Protonix 40mg IV Q12H * Zofran 4 mg IV Q4H PRN n/v * Clinimix 5%-25% @ 42 ml/hr * Will start Lactobacillus once patient is able to take material through G tube * Hydrocortisone 1% Cream Topical TID (abdomen around surgical sites) PRN pruritis * Wound vac removed 05/19/18 * Extubated 05/16/18 * Srivastava Catheter removed 05/20/18 Status: Acute F/U repeat CT Abdomen/Pelvis morning 05/21/18. Franki Denise D.O. Objective - Vital Signs/Intake and Output Vital Signs (last 24 hours): Temp Pulse Resp BP Pulse Ox 98.4 F 127 H 21 145/104 H 100 05/20/18 16:00 05/20/18 18:00 05/20/18 18:00 05/20/18 17:10 05/20/18 18:00 Intake and Output: 05/20/18 05/21/18 18:59 06:59 Intake Total 1446 84 Output Total 3400 Balance -1954 84 - Medications Medications: Current Medications Dextrose (Dextrose 50% Inj) 0 ml IV STAT PRN; Protocol PRN Reason: Hypoglycemia Protocol Last Admin: 05/16/18 23:40 Dose: 50 ml Dextrose (Glutose 15) 0 gm PO ONCE PRN; Protocol PRN Reason: Hypoglycemia Protocol Enoxaparin Sodium (Lovenox) 40 mg SC DAILY [facility] Last Admin: 05/20/18 09:32 Dose: 40 mg Glucagon (Glucagen Diagnostic Kit) 0 mg IM STAT PRN; Protocol PRN Reason: Hypoglycemia Protocol Hydrocortisone (Cortizone 1% Cream) 0 gm TOP TID [facility] Last Admin: 05/20/18 18:44 Dose: 1 applic Hydromorphone HCl (Dilaudid) 1 mg IVP Q3 PRN PRN Reason: Pain, moderate (4-7) Last Admin: 05/20/18 17:09 Dose: 1 mg Dextrose (Dextrose 5% In Water 1000 Ml) 1,000 mls @ 0 mls/hr IV .Q0M PRN; Protocol; Per Protocol PRN Reason: Hypoglycemia Protocol Metronidazole (Flagyl) 500 mg in 100 mls @ 100 mls/hr IVPB Q8H [facility] PRN Reason: Protocol Last Admin: 05/20/18 12:32 Dose: 100 mls/hr Meropenem 1 gm/ Sodium (Chloride) 100 mls @ 100 mls/hr IVPB Q8H [facility] PRN Reason: Protocol Last Admin: 05/20/18 19:37 Dose: 100 mls/hr Vancomycin/Sodium Chloride (Vancomycin 1 Gm/Ns 200 Ml) 1 gm in 200 mls @ 133.333 mls/hr IVPB Q12H [facility] PRN Reason: Protocol Stop: 05/23/18 17:01 Last Admin: 05/20/18 16:41 Dose: 133.333 mls/hr Fat Emulsion Intravenous (Intralipid 20%) 250 mls @ 42 mls/hr IV DAILY@1800 [facility] Last Admin: 05/20/18 16:59 Dose: 42 mls/hr Sodium Chloride 35 meq/Potassium Phosphate 30 mmole/Magnesium Sulfate 6 meq/ Multivitamins/Vitamin C 10 ml/Chromium/Copper/Manganese/Seleni/Zn 1 ml/ Heparin Sodium (Porcine) 1,000 units/ Amino Acids 1,032.2278 mls @ 42 mls/hr IV .Q24H ONE Stop: 05/21/18 17:59 Last Admin: 05/20/18 17:00 Dose: 42 mls/hr Insulin Human Regular (Novolin R) 0 unit SC Q6 [facility] PRN Reason: Protocol Last Admin: 05/20/18 18:19 Dose: Not Given Ipratropium [place] (Atrovent) 0.5 mg IH RQ6 [facility] Last Admin: 05/20/18 19:28 Dose: 0.5 mg Lorazepam (Ativan) 0.5 mg IVP Q12 PRN PRN Reason: Anxiety Last Admin: 05/20/18 12:27 Dose: 0.5 mg Morphine Sulfate (Morphine) 1 mg IVP Q4 PRN PRN Reason: Pain, severe (8-10) Last Admin: 05/20/18 15:56 Dose: 1 mg Nicotine (Nicoderm Cq) 1 patch TD DAILY [facility] Last Admin: 05/20/18 09:32 Dose: 1 patch Ondansetron HCl (Zofran Inj) 4 mg IVP Q4 PRN PRN Reason: Nausea/Vomiting Pantoprazole Sodium (Protonix Inj) 40 mg IVP Q12H [facility] Last Admin: 05/20/18 09:32 Dose: 40 mg Vitamin A (Vitamin A & D Oint Ud Foilpak) 1 ea TOP Q8 PRN PRN Reason: dry lips Last Admin: 05/20/18 11:10 Dose: 1 ea - Labs Labs: 05/20/18 10:41 05/20/18 15:53 PT 14.8 SECONDS (9.7-12.2) H 05/20/18 05:57 INR 1.4 05/20/18 05:57 APTT 30 SECONDS (21-34) 05/20/18 05:57
[2018-05-21] MEDS: (Novolin R) Insulin Human Regular 100 units/ml vial SC SCH ×4 (00:31→18:00)
[2018-05-21] MEDS: HYDROmorphone 1 mg/ml ISec IVP PRN ×7 (01:34→21:02)
[2018-05-21] MEDS: Ipratropium 0.02% Inhal Soln (0.5 mg/2.5 ml) UD IH SCH ×4 (02:24→20:13)
--- NOTE | 2018-05-21 02:28 | PN ---
Copied To: Guero Rivera MD Attending MD: Guero Rivera MD DATE: 05/20/2018 SUBJECTIVE: The patient has an NG tube to suction. She said she passed some blood per rectum, and she is concerned. She is otherwise awake, alert. I was called by the primary attending to modify the antibiotics as Pseudomonas is sensitive to meropenem and they want to give one drug. PHYSICAL EXAMINATION: VITAL SIGNS: T-max is 98.4, heart rate of 122, blood pressure 147/99, respirations are 27. HEENT: Head is atraumatic. NG tube is present. Triple-lumen is present. NECK: Supple. LUNGS: Clear. HEART: S1, S2. Tachycardic. ABDOMEN: Remains with a surgical scar. The wound VAC has been discontinued and she has dressing. She has stay sutures there. She also has bilateral drains present. She also has a PEG tube present which is draining bile at this time. EXTREMITIES: Remain with no edema. LABORATORY DATA: Labs are noted. Labs show white count at 14.9 today, it increased from 11.7; hemoglobin 9; hematocrit 26.8; platelet count is 237 and is better; neutrophils remain 81.8; bands are still 10, lymphs are 10. ASSESSMENT AND PLAN: Chest x-ray, the body fluid culture from the showed Pseudomonas, and we are covering it. Her medications include vancomycin, Merrem as well as metronidazole at this time. We will follow. She has had a bypass surgery in the past and that has just changed the anatomy and she went through ischemic bowel laparotomy twice and is on antibiotics and in intensive care unit. Guero Rivera MD
[2018-05-21] MEDS: Meropenem 1 GM in Sodium Chloride 0.9% 100 ML IVPB SCH ×3 (03:04→18:55)
[2018-05-21] MEDS: metroNIDAZOLE IV 500 mg/100 ml 500 MG/100 ML BAG IVPB SCH ×3 (04:08→19:52)
[2018-05-21] MEDS: Vancomycin 1 gm/NS 200 ml 1 GM/200 ML BAG IVPB SCH ×2 (04:08→16:42)
[2018-05-21 06:30] LABS: BASO % 0.3 % (0.0-2.0); EOS # 0.2 K/uL (0.0-0.7); EOS % 1.3 % (0.0-4.0); HEMOGLOBIN 8.9 g/dL (11.0-16.0); LYMPH # 1.9 K/uL (1.0-4.3); LYMPH % 10.5 % (20.0-40.0); MEAN CELL VOLUME 86.1 fL (81.0-99.0); MEAN CORPUSCULAR HEMOGLOBIN 28.9 pg (27.0-31.0); MEAN CORPUSCULAR HGB CONC 33.5 g/dL (33.0-37.0); MEAN PLATELET VOLUME 8.2 fL (7.2-11.7); MONO # 1.4 K/uL (0.0-0.8); MONO % 8.2 % (0.0-10.0); NEUT # 14.2 K/uL (1.8-7.0); NEUT % 79.7 % (50.0-75.0); RBC 3.09 Mil/uL (3.80-5.20); RED CELL DISTRIBUTION WIDTH 16.5 % (11.5-14.5); WHITE BLOOD COUNT 17.7 K/uL (4.8-10.8)
[2018-05-21 06:36] LABS: INR 1.4; PROTHROMBIN TIME 15.2 SECONDS (9.7-12.2)
[2018-05-21 06:44] LABS: ALB/GLOB RATIO 0.9 (1.0-2.1); ALBUMIN 2.5 g/dL (3.5-5.0); ALT/SGPT 56 U/L (9-52); AST/SGOT 23 U/L (14-36); BLOOD UREA NITROGEN 12 mg/dL (7-17); CALCIUM 7.8 mg/dl (8.6-10.4); GFR NON-AFRICAN AMERICAN > 60
[2018-05-21] MEDS ORDERED: Iohexol 240 (50 ml) PO ONE (08:30)
--- NOTE | 2018-05-21 08:54 | CP.PCM.PN ---
Subjective - Date & Time of Evaluation Date of Evaluation: 05/21/18 Time of Evaluation: 07:00 - Subjective Subjective: GENERAL SURGERY PROGRESS NOTE FOR DR. ALAMO (covering for Dr. Haas) Patient seen and examined at bedside in ICU. No acute events overnight. Pt has been afebrile. Continues to report pain "all over". Denies nausea or vomiting. Had 2 BMs yesterday, with dark red mixed with stool. Discussed with patient importance of using IS and getting out of bed. Overnight outputs: NG tube: 600 Gastrostomy tube: 800cc L Sky: 35cc R sky: 5cc Objective - Vital Signs/Intake and Output Vital Signs (last 24 hours): Temp Pulse Resp BP Pulse Ox 99.7 F H 124 H 26 H 142/98 H 98 05/21/18 04:00 05/21/18 07:10 05/21/18 07:10 05/21/18 07:10 05/21/18 07:10 Intake and Output: 05/21/18 05/21/18 06:59 18:59 Intake Total 1498 42 Balance 1498 42 - Medications Medications: Current Medications Dextrose (Dextrose 50% Inj) 0 ml IV STAT PRN; Protocol PRN Reason: Hypoglycemia Protocol Last Admin: 05/16/18 23:40 Dose: 50 ml Dextrose (Glutose 15) 0 gm PO ONCE PRN; Protocol PRN Reason: Hypoglycemia Protocol Enoxaparin Sodium (Lovenox) 40 mg SC DAILY [facility] Last Admin: 05/20/18 09:32 Dose: 40 mg Glucagon (Glucagen Diagnostic Kit) 0 mg IM STAT PRN; Protocol PRN Reason: Hypoglycemia Protocol Hydrocortisone (Cortizone 1% Cream) 0 gm TOP TID [facility] Last Admin: 05/20/18 18:44 Dose: 1 applic Hydromorphone HCl (Dilaudid) 1.5 mg IVP Q3 PRN PRN Reason: Pain, moderate (4-7) Last Admin: 05/21/18 08:11 Dose: 1.5 mg Dextrose (Dextrose 5% In Water 1000 Ml) 1,000 mls @ 0 mls/hr IV .Q0M PRN; Protocol; Per Protocol PRN Reason: Hypoglycemia Protocol Metronidazole (Flagyl) 500 mg in 100 mls @ 100 mls/hr IVPB Q8H [facility] PRN Reason: Protocol Last Admin: 05/21/18 04:08 Dose: 100 mls/hr Meropenem 1 gm/ Sodium (Chloride) 100 mls @ 100 mls/hr IVPB Q8H [facility] PRN Reason: Protocol Last Admin: 05/21/18 03:04 Dose: 100 mls/hr Vancomycin/Sodium Chloride (Vancomycin 1 Gm/Ns 200 Ml) 1 gm in 200 mls @ 133.333 mls/hr IVPB Q12H [facility] PRN Reason: Protocol Stop: 05/23/18 17:01 Last Admin: 05/21/18 04:08 Dose: 133.333 mls/hr Fat Emulsion Intravenous (Intralipid 20%) 250 mls @ 42 mls/hr IV DAILY@1800 [facility] Last Admin: 05/20/18 16:59 Dose: 42 mls/hr Sodium Chloride 35 meq/Potassium Phosphate 30 mmole/Magnesium Sulfate 6 meq/ Multivitamins/Vitamin C 10 ml/Chromium/Copper/Manganese/Seleni/Zn 1 ml/ Heparin Sodium (Porcine) 1,000 units/ Amino Acids 1,032.2278 mls @ 42 mls/hr IV .Q24H ONE Stop: 05/21/18 17:59 Last Admin: 05/20/18 17:00 Dose: 42 mls/hr Acetaminophen (Ofirmev) 100 mls @ 400 mls/hr IV Q6 [facility] Stop: 05/23/18 06:01 Last Admin: 05/21/18 05:04 Dose: 400 mls/hr Insulin Human Regular (Novolin R) 0 unit SC Q6 [facility] PRN Reason: Protocol Last Admin: 05/21/18 06:40 Dose: Not Given Ipratropium [place] (Atrovent) 0.5 mg IH RQ6 [facility] Last Admin: 05/21/18 02:24 Dose: Not Given Lorazepam (Ativan) 0.5 mg IVP Q12 PRN PRN Reason: Anxiety Last Admin: 05/20/18 22:56 Dose: 0.5 mg Nicotine (Nicoderm Cq) 1 patch TD DAILY [facility] Last Admin: 05/20/18 09:32 Dose: 1 patch Ondansetron HCl (Zofran Inj) 4 mg IVP Q4 PRN PRN Reason: Nausea/Vomiting Pantoprazole Sodium (Protonix Inj) 40 mg IVP Q12H [facility] Last Admin: 05/20/18 22:57 Dose: 40 mg Vitamin A (Vitamin A & D Oint Ud Foilpak) 1 ea TOP Q8 PRN PRN Reason: dry lips Last Admin: 05/20/18 11:10 Dose: 1 ea - Labs Labs: 05/21/18 06:21 05/21/18 06:17 PT 15.2 SECONDS (9.7-12.2) H 05/21/18 06:24 INR 1.4 05/21/18 06:24 APTT 32 SECONDS (21-34) 05/21/18 06:24 - Constitutional Appears: Non-toxic, No Acute Distress - Head Exam Head Exam: ATRAUMATIC, NORMAL INSPECTION - Eye Exam Eye Exam: EOMI, Normal appearance - Respiratory Exam Respiratory Exam: NORMAL BREATHING PATTERN. absent: Respiratory Distress - Cardiovascular Exam Cardiovascular Exam: Tachycardia - GI/Abdominal Exam GI & Abdominal Exam: Soft, Tenderness (mild incisional tenderness) Additional comments: Bilateral Sky drains in place with serous output Gastrostomy tube in place to gravity NG tube in place - Neurological Exam Neurological Exam: Alert, Awake, Oriented x3 - Psychiatric Exam Psychiatric exam: Normal Affect, Normal Mood - Skin Skin Exam: Normal Color, Warm Assessment and Plan - Assessment and Plan (Free Text) Assessment: 37yo F with PMHx of [id number]-[id number] gastric bypass in 2013 now with bowel ischemia secondary to internal hernia. POD#7 s/p Exploratory laparotomy, Reduction of internal hernia, DANNI, Drainage of abdominal collections, temporary abdominal closure (fascia left open), EGD. POD#5 s/p Re-exploration, Small bowel resection of ileum, small bowel resection of Yenni limb including previous gastrojejunostomy, reversal of bypass, primary anastomosis of ileum-ileum, ileum-ileum, and ileum-jejunum, Gastrostomy tube in bypassed stomach, EGD Outputs: NG tube in gastric pouch: 600 Gastrostomy tube in bypassed stomach: 800cc from 7p-7a Right Sky: 5cc serous from 7p-7a Left Sky: 35cc serous from 7p-7a - Continues to be afebrile, remains tachycardic - Leukocytosis trending up to 17.7, on Flagyl, Merrem, Vanco per ID - Cx from OR of peritoneal fluid: pseudomonas aeruginosa, sensitive to Merrem - Blood & Urine cx negative - Continue strict NPO w/ NG tube to low intermittent suction in gastric pouch and gastrostomy tube to gravity - Possible trickle feeds through G tube on Wednesday - CT with PO contrast through G tube ordered, will FU prior to starting tube feeds - On TPN by ICU team - Ofirmev was added yesterday. DCed Morphine for breakthrough pain and increased dilaudid dose to 1.5mg Q3 - DVT Prophylaxis: Lovenox - Will need surgery in 4-6 weeks to restore GI continuity - Dressing changed, packed in between sutures - Encouraged OOB, ambulation and IS use. Stressed importance to patient on OOB to chair - Continue PT - Discussed plan with Dr. Mack Dailey PGY-4
[2018-05-21] MEDS: Enoxaparin 40 mg Syringe SC SCH (09:55)
[2018-05-21] MEDS: Hydrocortisone 1% Cream (30 GM) TOP SCH ×3 (09:56→18:45)
--- NOTE | 2018-05-21 12:26 | CP.PCM.PN ---
Subjective - Date & Time of Evaluation Date of Evaluation: 05/21/18 Time of Evaluation: 12:24 - Subjective Subjective: COVERING DR ALVAREZ/JUAN No bleeding or pain. Feeling better. CT Scan done an pending Objective - Vital Signs/Intake and Output Vital Signs (last 24 hours): Temp Pulse Resp BP Pulse Ox 98.2 F 127 H 26 H 142/108 H 100 05/21/18 08:00 05/21/18 09:00 05/21/18 09:00 05/21/18 08:10 05/21/18 09:00 Intake and Output: 05/21/18 05/21/18 06:59 18:59 Intake Total 1498 168 Output Total 250 Balance 1498 -82 - Medications Medications: Current Medications Dextrose (Dextrose 50% Inj) 0 ml IV STAT PRN; Protocol PRN Reason: Hypoglycemia Protocol Last Admin: 05/16/18 23:40 Dose: 50 ml Dextrose (Glutose 15) 0 gm PO ONCE PRN; Protocol PRN Reason: Hypoglycemia Protocol Enoxaparin Sodium (Lovenox) 40 mg SC DAILY [facility] Last Admin: 05/21/18 09:55 Dose: 40 mg Glucagon (Glucagen Diagnostic Kit) 0 mg IM STAT PRN; Protocol PRN Reason: Hypoglycemia Protocol Hydrocortisone (Cortizone 1% Cream) 0 gm TOP TID [facility] Last Admin: 05/21/18 09:56 Dose: 1 applic Hydromorphone HCl (Dilaudid) 1.5 mg IVP Q3 PRN PRN Reason: Pain, moderate (4-7) Last Admin: 05/21/18 11:09 Dose: 1.5 mg Dextrose (Dextrose 5% In Water 1000 Ml) 1,000 mls @ 0 mls/hr IV .Q0M PRN; Protocol; Per Protocol PRN Reason: Hypoglycemia Protocol Metronidazole (Flagyl) 500 mg in 100 mls @ 100 mls/hr IVPB Q8H [facility] PRN Reason: Protocol Last Admin: 05/21/18 04:08 Dose: 100 mls/hr Meropenem 1 gm/ Sodium (Chloride) 100 mls @ 100 mls/hr IVPB Q8H [facility] PRN Reason: Protocol Last Admin: 05/21/18 11:15 Dose: 100 mls/hr Vancomycin/Sodium Chloride (Vancomycin 1 Gm/Ns 200 Ml) 1 gm in 200 mls @ 133.333 mls/hr IVPB Q12H [facility] PRN Reason: Protocol Stop: 05/23/18 17:01 Last Admin: 05/21/18 04:08 Dose: 133.333 mls/hr Fat Emulsion Intravenous (Intralipid 20%) 250 mls @ 42 mls/hr IV DAILY@1800 [facility] Last Admin: 05/20/18 16:59 Dose: 42 mls/hr Sodium Chloride 35 meq/Potassium Phosphate 30 mmole/Magnesium Sulfate 6 meq/ Multivitamins/Vitamin C 10 ml/Chromium/Copper/Manganese/Seleni/Zn 1 ml/ Heparin Sodium (Porcine) 1,000 units/ Amino Acids 1,032.2278 mls @ 42 mls/hr IV .Q24H [facility] Stop: 05/21/18 17:59 Last Admin: 05/20/18 17:00 Dose: 42 mls/hr Acetaminophen (Ofirmev) 100 mls @ 400 mls/hr IV Q6 [facility] Stop: 05/23/18 06:01 Last Admin: 05/21/18 10:59 Dose: 400 mls/hr Sodium Chloride 35 meq/Magnesium Sulfate 6 meq/Multivitamins/Vitamin C 10 ml/ Chromium/Copper/Manganese/Seleni/Zn 1 ml/ Heparin Sodium (Porcine) 1,000 units/ Calcium Chloride 330 mg/ Amino Acids 1,025.5278 mls @ 42 mls/hr IV .Q24H [facility] Stop: 05/22/18 17:59 Insulin Human Regular (Novolin R) 0 unit SC Q6 [facility] PRN Reason: Protocol Last Admin: 05/21/18 06:40 Dose: Not Given Ipratropium [place] (Atrovent) 0.5 mg IH RQ6 [facility] Last Admin: 05/21/18 02:24 Dose: Not Given Lorazepam (Ativan) 0.5 mg IVP Q12 PRN PRN Reason: Anxiety Last Admin: 05/21/18 10:09 Dose: 0.5 mg Nicotine (Nicoderm Cq) 1 patch TD DAILY [facility] Last Admin: 05/21/18 09:55 Dose: 1 patch Ondansetron HCl (Zofran Inj) 4 mg IVP Q4 PRN PRN Reason: Nausea/Vomiting Pantoprazole Sodium (Protonix Inj) 40 mg IVP Q12H [facility] Last Admin: 05/21/18 09:55 Dose: 40 mg Vitamin A (Vitamin A & D Oint Ud Foilpak) 1 ea TOP Q8 PRN PRN Reason: dry lips Last Admin: 05/20/18 11:10 Dose: 1 ea - Labs Labs: 05/21/18 06:21 05/21/18 06:17 PT 15.2 SECONDS (9.7-12.2) H 05/21/18 06:24 INR 1.4 05/21/18 06:24 APTT 32 SECONDS (21-34) 05/21/18 06:24 - Constitutional Appears: No Acute Distress - Respiratory Exam Respiratory Exam: NORMAL BREATHING PATTERN - Cardiovascular Exam Cardiovascular Exam: REGULAR RHYTHM - GI/Abdominal Exam GI & Abdominal Exam: Distended, Soft, Hypoactive Bowel Sounds. absent: Tenderness Additional comments: incisional dressing clean and dry. - Extremities Exam Extremities Exam: Normal Inspection Assessment and Plan (1) Ischemic bowel disease Assessment & Plan: Post op care per surgical team. ]Clinically improving. Advance diet when stable CT Scan pending Status: Acute (2) Rectal bleeding Assessment & Plan: No bleeding noted. Status: Acute (3) Status post gastric bypass for obesity Status: Resolved
[2018-05-21] MEDS ORDERED: Fat Emulsion 20% IV 250 ML IV ONE ×2 (13:00→18:00)
--- NOTE | 2018-05-21 16:32 | CP.PCM.PN ---
Subjective - Date & Time of Evaluation Date of Evaluation: 05/21/18 Time of Evaluation: 16:28 - Subjective Subjective: PAtient has no specific complaints. no acute events overnight Objective - Vital Signs/Intake and Output Vital Signs (last 24 hours): Temp Pulse Resp BP Pulse Ox 98.6 F 126 H 22 133/105 H 98 05/21/18 12:00 05/21/18 14:10 05/21/18 14:10 05/21/18 14:10 05/21/18 14:10 Intake and Output: 05/21/18 05/21/18 06:59 18:59 Intake Total 1498 636 Output Total 250 Balance 1498 386 - Medications Medications: Current Medications Dextrose (Dextrose 50% Inj) 0 ml IV STAT PRN; Protocol PRN Reason: Hypoglycemia Protocol Last Admin: 05/16/18 23:40 Dose: 50 ml Dextrose (Glutose 15) 0 gm PO ONCE PRN; Protocol PRN Reason: Hypoglycemia Protocol Enoxaparin Sodium (Lovenox) 40 mg SC DAILY [facility] Last Admin: 05/21/18 09:55 Dose: 40 mg Glucagon (Glucagen Diagnostic Kit) 0 mg IM STAT PRN; Protocol PRN Reason: Hypoglycemia Protocol Hydrocortisone (Cortizone 1% Cream) 0 gm TOP TID [facility] Last Admin: 05/21/18 09:56 Dose: 1 applic Hydromorphone HCl (Dilaudid) 1.5 mg IVP Q3 PRN PRN Reason: Pain, moderate (4-7) Last Admin: 05/21/18 14:27 Dose: 1.5 mg Dextrose (Dextrose 5% In Water 1000 Ml) 1,000 mls @ 0 mls/hr IV .Q0M PRN; Protocol; Per Protocol PRN Reason: Hypoglycemia Protocol Metronidazole (Flagyl) 500 mg in 100 mls @ 100 mls/hr IVPB Q8H [facility] PRN Reason: Protocol Last Admin: 05/21/18 12:30 Dose: 100 mls/hr Meropenem 1 gm/ Sodium (Chloride) 100 mls @ 100 mls/hr IVPB Q8H [facility] PRN Reason: Protocol Last Admin: 05/21/18 11:15 Dose: 100 mls/hr Vancomycin/Sodium Chloride (Vancomycin 1 Gm/Ns 200 Ml) 1 gm in 200 mls @ 133.333 mls/hr IVPB Q12H [facility] PRN Reason: Protocol Stop: 05/23/18 17:01 Last Admin: 05/21/18 04:08 Dose: 133.333 mls/hr Sodium Chloride 35 meq/Potassium Phosphate 30 mmole/Magnesium Sulfate 6 meq/ Multivitamins/Vitamin C 10 ml/Chromium/Copper/Manganese/Seleni/Zn 1 ml/ Heparin Sodium (Porcine) 1,000 units/ Amino Acids 1,032.2278 mls @ 42 mls/hr IV .Q24H [facility] Stop: 05/21/18 17:59 Last Admin: 05/20/18 17:00 Dose: 42 mls/hr Acetaminophen (Ofirmev) 100 mls @ 400 mls/hr IV Q6 [facility] Stop: 05/23/18 06:01 Last Admin: 05/21/18 10:59 Dose: 400 mls/hr Sodium Chloride 35 meq/Magnesium Sulfate 6 meq/Multivitamins/Vitamin C 10 ml/ Chromium/Copper/Manganese/Seleni/Zn 1 ml/ Heparin Sodium (Porcine) 1,000 units/ Calcium Chloride 330 mg/ Amino Acids 1,025.5278 mls @ 42 mls/hr IV .Q24H [facility] Stop: 05/22/18 17:59 Insulin Human Regular (Novolin R) 0 unit SC Q6 [facility] PRN Reason: Protocol Last Admin: 05/21/18 12:30 Dose: 2 unit Ipratropium [place] (Atrovent) 0.5 mg IH RQ6 [facility] Last Admin: 05/21/18 14:34 Dose: 0.5 mg Lorazepam (Ativan) 0.5 mg IVP Q12 PRN PRN Reason: Anxiety Last Admin: 05/21/18 10:09 Dose: 0.5 mg Nicotine (Nicoderm Cq) 1 patch TD DAILY [facility] Last Admin: 05/21/18 09:55 Dose: 1 patch Ondansetron HCl (Zofran Inj) 4 mg IVP Q4 PRN PRN Reason: Nausea/Vomiting Pantoprazole Sodium (Protonix Inj) 40 mg IVP Q12H [facility] Last Admin: 05/21/18 09:55 Dose: 40 mg Vitamin A (Vitamin A & D Oint Ud Foilpak) 1 ea TOP Q8 PRN PRN Reason: dry lips Last Admin: 05/20/18 11:10 Dose: 1 ea - Labs Labs: 05/21/18 06:21 08/11/18 06:17 PT 15.2 SECONDS (9.7-12.2) H 05/21/18 06:24 INR 1.4 05/21/18 06:24 APTT 32 SECONDS (21-34) 05/21/18 06:24 Assessment and Plan - Assessment and Plan (Free Text) Assessment: 37 year old female with PMH of recurrent SBOs s/p gastric bypass (2013), HTN, HLD, DM2, obesity, gastritis, asthma admitted to ICU for post op care: -POst op: to restart tube feeding as per surgery -maintains MAP >65, off pressors, will request IR to place PICC line and remove central line -continue to monitor to keep spo2 >92 -continue dvt/pud ppx -wound care as per surgery -continue current management -oob to chair -monitor serial cbc and cmp/mag/phos
--- NOTE | 2018-05-21 17:18 | CP.PCM.PN ---
Subjective - Date & Time of Evaluation Date of Evaluation: 05/21/18 Time of Evaluation: 15:00 - Subjective Subjective: dictated Objective - Vital Signs/Intake and Output Vital Signs (last 24 hours): Temp Pulse Resp BP Pulse Ox 98.6 F 132 H 29 H 135/100 H 87 L 05/21/18 12:00 05/21/18 16:00 05/21/18 16:00 05/21/18 15:10 05/21/18 16:00 Intake and Output: 05/21/18 05/21/18 06:59 18:59 Intake Total 1498 920 Output Total 250 Balance 1498 670 - Medications Medications: Current Medications Dextrose (Dextrose 50% Inj) 0 ml IV STAT PRN; Protocol PRN Reason: Hypoglycemia Protocol Last Admin: 05/16/18 23:40 Dose: 50 ml Dextrose (Glutose 15) 0 gm PO ONCE PRN; Protocol PRN Reason: Hypoglycemia Protocol Enoxaparin Sodium (Lovenox) 40 mg SC DAILY [facility] Last Admin: 05/21/18 09:55 Dose: 40 mg Glucagon (Glucagen Diagnostic Kit) 0 mg IM STAT PRN; Protocol PRN Reason: Hypoglycemia Protocol Hydrocortisone (Cortizone 1% Cream) 0 gm TOP TID [facility] Last Admin: 05/21/18 14:00 Dose: 1 applic Hydromorphone HCl (Dilaudid) 1.5 mg IVP Q3 PRN PRN Reason: Pain, moderate (4-7) Last Admin: 05/21/18 14:27 Dose: 1.5 mg Dextrose (Dextrose 5% In Water 1000 Ml) 1,000 mls @ 0 mls/hr IV .Q0M PRN; Protocol; Per Protocol PRN Reason: Hypoglycemia Protocol Metronidazole (Flagyl) 500 mg in 100 mls @ 100 mls/hr IVPB Q8H [facility] PRN Reason: Protocol Last Admin: 05/21/18 12:30 Dose: 100 mls/hr Meropenem 1 gm/ Sodium (Chloride) 100 mls @ 100 mls/hr IVPB Q8H [facility] PRN Reason: Protocol Last Admin: 05/21/18 11:15 Dose: 100 mls/hr Vancomycin/Sodium Chloride (Vancomycin 1 Gm/Ns 200 Ml) 1 gm in 200 mls @ 133.333 mls/hr IVPB Q12H [facility] PRN Reason: Protocol Stop: 05/23/18 17:01 Last Admin: 05/21/18 16:42 Dose: 133.333 mls/hr Sodium Chloride 35 meq/Potassium Phosphate 30 mmole/Magnesium Sulfate 6 meq/ Multivitamins/Vitamin C 10 ml/Chromium/Copper/Manganese/Seleni/Zn 1 ml/ Heparin Sodium (Porcine) 1,000 units/ Amino Acids 1,032.2278 mls @ 42 mls/hr IV .Q24H [facility] Stop: 05/21/18 17:59 Last Admin: 05/20/18 17:00 Dose: 42 mls/hr Acetaminophen (Ofirmev) 100 mls @ 400 mls/hr IV Q6 [facility] Stop: 05/23/18 06:01 Last Admin: 05/21/18 10:59 Dose: 400 mls/hr Sodium Chloride 35 meq/Magnesium Sulfate 6 meq/Multivitamins/Vitamin C 10 ml/ Chromium/Copper/Manganese/Seleni/Zn 1 ml/ Heparin Sodium (Porcine) 1,000 units/ Calcium Chloride 330 mg/ Amino Acids 1,025.5278 mls @ 42 mls/hr IV .Q24H [facility] Stop: 05/22/18 17:59 Insulin Human Regular (Novolin R) 0 unit SC Q6 [facility] PRN Reason: Protocol Last Admin: 05/21/18 12:30 Dose: 2 unit Ipratropium [place] (Atrovent) 0.5 mg IH RQ6 [facility] Last Admin: 05/21/18 14:34 Dose: 0.5 mg Lorazepam (Ativan) 0.5 mg IVP Q12 PRN PRN Reason: Anxiety Last Admin: 05/21/18 10:09 Dose: 0.5 mg Nicotine (Nicoderm Cq) 1 patch TD DAILY [facility] Last Admin: 05/21/18 09:55 Dose: 1 patch Ondansetron HCl (Zofran Inj) 4 mg IVP Q4 PRN PRN Reason: Nausea/Vomiting Pantoprazole Sodium (Protonix Inj) 40 mg IVP Q12H [facility] Last Admin: 05/21/18 09:55 Dose: 40 mg Vitamin A (Vitamin A & D Oint Ud Foilpak) 1 ea TOP Q8 PRN PRN Reason: dry lips Last Admin: 05/20/18 11:10 Dose: 1 ea - Labs Labs: 05/21/18 06:21 05/21/18 06:17 PT 15.2 SECONDS (9.7-12.2) H 05/21/18 06:24 INR 1.4 05/21/18 06:24 APTT 32 SECONDS (21-34) 05/21/18 06:24
[2018-05-21] MEDS ORDERED: TPN#5 IV ONE (18:00)
--- NOTE | 2018-05-21 18:18 | CT ---
Date of service: 05/21/2018 PROCEDURE: CT Abdomen and Pelvis with Oral contrast. HISTORY: s/p gastric bypass reversal, SB resection COMPARISON: Comparison is made to the previous study dated 05/14/2018 TECHNIQUE: Contiguous axial images of the abdomen and pelvis. Oral contrast was administered. No IV contrast given. Coronal and Sagittal reformats generated. Radiation dose: Total exam DLP = 733.18 mGy-cm. This CT exam was performed using one or more of the following dose reduction techniques: Automated exposure control, adjustment of the mA and/or kV according to patient size, and/or use of iterative reconstruction technique. FINDINGS: LOWER THORAX: Airspace consolidation noted at the right lower lobe may represent atelectasis or pneumonia. The differential consideration also includes aspiration. Possible trace right pleural effusion. Small pleural thickening and trace left pleural effusion is also noted. There is NG tube seen in the distal esophagus LIVER: Mild hepatomegaly is again noted. GALLBLADDER AND BILE DUCTS: The gallbladder is distended. Slight high attenuation noted at the posterior dependent portion of the gallbladder may represent sludge or small gallstones. No definite evidence of acute cholecystitis. PANCREAS: No evidence of pancreatitis. SPLEEN: Unremarkable. No splenomegaly. ADRENALS: Unremarkable. KIDNEYS AND URETERS: Unremarkable. No stone or hydronephrosis. BLADDER: Grossly unremarkable. REPRODUCTIVE: Unremarkable. APPENDIX: No evidence of appendicitis. BOWEL: Postsurgical changes adjacent to the proximal stomach is again noted. There is percutaneous tube extending to the stomach. No evidence of high-grade bowel obstruction. Small bowel small bowel anastomosis is noted at the mid abdomen. There are surgical drainage at both side of the abdomen noted. PERITONEUM: Diffuse mesenteric edema and mildly enlarged mesenteric lymph nodes are noted. Trace free fluid seen. No evidence of free air. LYMPH NODES: Unremarkable. No enlarged lymph nodes. VASCULATURE: Unremarkable. No aortic aneurysm. BONES: No fracture or destructive lesion. OTHER FINDINGS: Postsurgical changes and surgical incision are noted at the midline anterior abdominal wall. IMPRESSION: Postsurgical changes. No evidence of high-grade bowel obstruction. Previously noted increased internal swirling of the small bowel and mesenteric pedicles in the previous study are not seen in the current exam. Diffuse mesenteric edema and mildly enlarged mesenteric lymph nodes are noted. Additional acute post surgical changes in the abdomen and upper pelvis as described above. Continuous follow-up reassessment is recommended. Right lower lobe airspace consolidation may represent a pneumonia or atelectasis or aspiration.
--- NOTE | 2018-05-21 19:32 | CP.PCM.PN ---
Subjective - Date & Time of Evaluation Date of Evaluation: 05/21/18 Time of Evaluation: 19:15 - Subjective Subjective: Hospitalist Progress Note Patient was seen and examined at 7:15 PM 05/21/18 ICU Bed 1 Please see Assessment and Plans for details. Currently upon FULL ROS: Patient again continues to complain of diffuse abdominal pain continues ( however please note that at the time of my exam patient is able to maintain normal conversation and does not appear to be in any distress) and prior to me entering her room, patient edith was witnessed using her phone and smiling and talking without any signs of distress. She also states that today is the second day of her menses Complains of discomfort at the back of the throat because of the NGT NO other complaints upon FULL ROS General: AAOx3, Does not appear to be level of pain at the time of my exam HEENT: PERRLA, NCA, Nasal Turbinates and oral mucosa are dry, NO Pharyneal erythema/exudate, NO thyromegly, NO lympadenopathy Cardio: NS1 and NS2, NO M/R/G Respiratory: Few scattered course breath sounds with expiration diffusely GI: 1 Sky Drain on Right and 1 Sky Drain on Left and G Tubes in place, Soft , ND, BSx4 are decreased Ext: Pulses are strong and equal Bilateral UE and LE, NO edema, Capillary Refill is 2 second Neuro: CN II through XII are grossly intact (1) Ischemic bowel disease Assessment & Plan: * Dr. Harley (surgery) on the case-->help appreciated * Dr. Samara Denise (Surgery) on the case-->help appreciated * Preoperative/intraoperative/postoperative management per surgery * Dr. Alvarado (GI) on the case-->help appreciated * Dr. Rivera (ID) on the case-->help appreciated * Chest xray (05/14/18): no infiltrate, pleural effusion, or pneumothorax b/l. Diminished inspiratory volume question. No acute cardiovascular disease. * Lactic: 3.6 (prior OR)-->2.4 (post OR)-->2.3-->1.5-->1.6-->0.9 * Patient has had 2 bloody bowel movements started 05/14/18. Patient's rectal: blood. She had reported abdominal pain has worsening since night of admission. Patient required emergent surgical intervention on 05/14/18 and transferred to ICU. * Per operative note (05/14/18): Diagnostic laparoscopy, Exploratory laparotomy, Reduction of internal hernia, Lysis of adhesions, Drainage of abdominal collections, temporary abdominal closure, EGD * Ischemia of yenni limb, internal hernia. Naveed drain stitched to distal common limb * ICU evaluation noted: Patient underwent emergency laparotomy for possible ischemic bowel. Patient had GI bleed. In the operating room patient underwent extensive exploratory laparotomy. Significant gangrene of the small bowel noted. Hernia was identified, which was reduced.After that the significant improvement in the vasculature noted. * Patient underwent surgery again on 05/16/18.Re-exploration, Small bowel resection of ileum, small bowel resection of Yenni limb with gastrojejunostomy, reversal of bypass, primary anastomosis of ileum-ileum, ileum-ileum, and ileum- jejunum, Gastrostomy tube in bypassed stomach, EGD * Per surgery, monitor for abdominal compartment syndrome * Recommend TPN. * Will need f/u surgery in 4-6 weeks to restore GI * Patient extubated 05/16/18. Patient is off Propofol. Patient is currently on Dialudid 1.5 mg IV Q3H * Drains included: NGT Tube, right sky, left sky, gastrostomy tube. * IV abx: * Vancomycin 1 gm IV Q12H (active since 05/18/18) * Flagyl 500mg IVPB Q8H (active since 05/15/18) * Meropenem 1 gm IVPB Q8H (active 05/15/18) * Cultures: * Intraoperative Peritoneal Fluid (05/14/18): Pseudomonas sesitive to Meropenem which patient is on * Blood culture (05/15/18): no growth to date * Urine culture: no growth Status: Acute (2) Small bowel obstruction Assessment & Plan: * Secondary to hernia * CT abdomen/Pelvis (05/13/18): Writhing appearance of mesentric vessels. Mesentric edema. No evidence of bowel obstruction. Whirling appearance of mesentric vessels is nonspecific. Prominent mesentric lymph nodes. Mesentric edema. (preop) * Patient has had 2 bloody bowel movements started 05/14/18. Patient's rectal: blood. She had reported abdominal pain has worsening since night of admission. Patient required emergent surgical intervention on 05/14/18 and transferred to ICU. Patient will need a second surgery likely tomorrow on 05/16/18. * Per operative note (05/14/18): Diagnostic laparoscopy, Exploratory laparotomy, Reduction of internal hernia, Lysis of adhesions, Drainage of abdominal collections, temporary abdominal closure, EGD * Ischemia of yenni limb, internal hernia. Naveed drain stitched to distal common limb * ICU evaluation noted: Patient underwent emergency laparotomy for possible ischemic bowel. Patient had GI bleed. In the operating room patient underwent extensive exploratory laparotomy. Significant gangrene of the small bowel noted. Hernia was identified, which was reduced.After that the significant improvement in the vasculature noted. But there is still a segment of bowel not healthy (portion of the alimentary canal from prior gastric bypass surgery--> clarified with surgery resident), * Patient underwent surgery again on 05/16/18.Re-exploration, Small bowel resection of ileum, small bowel resection of Yenni limb with gastrojejunostomy, reversal of bypass, primary anastomosis of ileum-ileum, ileum-ileum, and ileum- jejunum, Gastrostomy tube in bypassed stomach, EGD * Per surgery, monitor for abdominal compartment syndrome * Will need f/u surgery in 4-6 weeks to restore GI Status: Acute (3) Obesity (BMI 30-39.9) Assessment & Plan: * Status post gastric bypass surgery in 2013 * Operative note (2013): Yenni-en-Y gastric bypass surgery Status: Acute (4) Status post gastric bypass for obesity Assessment & Plan: * Status post gastric bypass 2013 * Operative note (2013): Yenni-en-Y gastric bypass surgery Status: Acute (5) History of Asthma Assessment & Plan: * Patient not in acute exacerbation (6) Leukocytosis Assessment & Plan: * Likely secondary to ischemic bowel secondary to small bowel obstruction () and had surgery (05/16/18) * IV abx: * Vancomycin 1 gm IV Q12H (active since 05/18/18) * Flagyl 500mg IVPB Q8H (active since 05/15/18) * Meropenem 1 gm IVPB Q8H (active since 05/15/18) * Cultures: * Intraoperative Peritoneal Fluid (05/14/18) : Pseudomonas which is sensitive to Meropenem * Blood culture (05/15/18): NO growth to date * Urine culture (05/15/18): NO growth (7) Diabetes Mellitus (Type 2); controlled Assessment & Plan: * From prior note: * Admittedly non-compliant - has not taken Januvia for one year * Accuchecks Q6H * Hypoglycemic protocol * HbA1c - 6.3 (03/10/17) * hgba1c: 02/15 * History of gastric bypass surgery (8) Hx of HTN (hypertension) Assessment & Plan: * Since Gastric Bypass has not taken meds (9) Hx of Hypothyroid Assessment & Plan: * From prior note: * Pt admitted non-compliance (10) Hypercholesterolemia Assessment & Plan: * From prior note: * Pt not taking meds * LDL 138, HDL 67, Tchol 220, Trig 112 * History of gastric bypass surgery (11) Anxiety Assessment & Plan: * Patient was taking Xanax for anxiety noted in prior note * Ativan 0.5 mg IV PRN Anxiety (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 Assessment & Plan: * 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 and from my prior note from last hospitalization (13) Smoker Assessment & Plan: * From my prior note: 1ppd x 20 yrs, 1/2 ppd x 3 yrs * Nicotine Patch 21 mg TD 1x/day (14) Prophylactic measure Assessment & Plan: * Lovenox 40 mg SC 1x/day * RIJ TLC 05/14/18 * NGT Tube * Srivastava * Off pressor * Off Paralytic * Off Fentanyl * Protonix 40mg IV Q12H * Zofran 4 mg IV Q4H PRN n/v * Clinimix 5%-25% @ 42 ml/hr * Will start Lactobacillus once patient is able to take material through G tube * Hydrocortisone 1% Cream Topical TID (abdomen around surgical sites) PRN pruritis * Wound vac removed 05/19/18 * Extubated 05/16/18 * Srivastava Catheter removed 05/20/18 Status: Acute CT Abdomen/Pelvis 05/21/18: shows postsurgical changes. No evidence of high grade bowel obstruction. Previously noted increased internal swirling of the small bowel and mesenteric pedicles in the previous study are note seen in the current exam. Diffuse mesenteric edema and mildly enlarged mesenteric lymph nodes are noted. Right Lower Lobe airspace consolidation may represent a pneumonia or atelectasis or aspiration. Franki J. Denise, D.O. Objective - Vital Signs/Intake and Output Vital Signs (last 24 hours): Temp Pulse Resp BP Pulse Ox 98.6 F 132 H 29 H 135/100 H 87 L 05/21/18 12:00 05/21/18 16:00 05/21/18 16:00 05/21/18 15:10 05/21/18 16:00 Intake and Output: 05/21/18 05/22/18 18:59 06:59 Intake Total 1004 63 Output Total 2695 Balance -1691 63 - Medications Medications: Current Medications Dextrose (Dextrose 50% Inj) 0 ml IV STAT PRN; Protocol PRN Reason: Hypoglycemia Protocol Last Admin: 05/16/18 23:40 Dose: 50 ml Dextrose (Glutose 15) 0 gm PO ONCE PRN; Protocol PRN Reason: Hypoglycemia Protocol Enoxaparin Sodium (Lovenox) 40 mg SC DAILY [facility] Last Admin: 05/21/18 09:55 Dose: 40 mg Glucagon (Glucagen Diagnostic Kit) 0 mg IM STAT PRN; Protocol PRN Reason: Hypoglycemia Protocol Hydrocortisone (Cortizone 1% Cream) 0 gm TOP TID [facility] Last Admin: 05/21/18 18:45 Dose: 1 applic Hydromorphone HCl (Dilaudid) 1.5 mg IVP Q3 PRN PRN Reason: Pain, moderate (4-7) Last Admin: 05/21/18 17:20 Dose: 1.5 mg Dextrose (Dextrose 5% In Water 1000 Ml) 1,000 mls @ 0 mls/hr IV .Q0M PRN; Protocol; Per Protocol PRN Reason: Hypoglycemia Protocol Metronidazole (Flagyl) 500 mg in 100 mls @ 100 mls/hr IVPB Q8H [facility] PRN Reason: Protocol Last Admin: 05/21/18 12:30 Dose: 100 mls/hr Meropenem 1 gm/ Sodium (Chloride) 100 mls @ 100 mls/hr IVPB Q8H [facility] PRN Reason: Protocol Last Admin: 05/21/18 18:55 Dose: 100 mls/hr Vancomycin/Sodium Chloride (Vancomycin 1 Gm/Ns 200 Ml) 1 gm in 200 mls @ 133.333 mls/hr IVPB Q12H [facility]N PRN Reason: Protocol Stop: 05/23/18 17:01 Last Admin: 05/21/18 16:42 Dose: 133.333 mls/hr Acetaminophen (Ofirmev) 100 mls @ 400 mls/hr IV Q6 [facility] Stop: 05/23/18 06:01 Last Admin: 05/21/18 17:30 Dose: 400 mls/hr Sodium Chloride 35 meq/Magnesium Sulfate 6 meq/Multivitamins/Vitamin C 10 ml/ Chromium/Copper/Manganese/Seleni/Zn 1 ml/ Heparin Sodium (Porcine) 1,000 units/ Calcium Chloride 330 mg/ Amino Acids 1,025.5278 mls @ 42 mls/hr IV .Q24H ONE Stop: 05/22/18 17:59 Fat Emulsion Intravenous (Intralipid 20%) 250 mls @ 21 mls/hr IV ONCE ONE Stop: 05/22/18 05:54 Last Admin: 05/21/18 18:56 Dose: 21 mls/hr Insulin Human Regular (Novolin R) 0 unit SC Q6 KATELYN PRN Reason: Protocol Last Admin: 05/21/18 18:00 Dose: Not Given Ipratropium [place] (Atrovent) 0.5 mg IH RQ6 [facility] Last Admin: 05/21/18 14:34 Dose: 0.5 mg Lorazepam (Ativan) 0.5 mg IVP Q12 PRN PRN Reason: Anxiety Last Admin: 05/21/18 10:09 Dose: 0.5 mg Nicotine (Nicoderm Cq) 1 patch TD DAILY [facility] Last Admin: 05/21/18 09:55 Dose: 1 patch Ondansetron HCl (Zofran Inj) 4 mg IVP Q4 PRN PRN Reason: Nausea/Vomiting Pantoprazole Sodium (Protonix Inj) 40 mg IVP Q12H [facility] Last Admin: 05/21/18 09:55 Dose: 40 mg Vitamin A (Vitamin A & D Oint Ud Foilpak) 1 ea TOP Q8 PRN PRN Reason: dry lips Last Admin: 05/20/18 11:10 Dose: 1 ea - Labs Labs: 05/21/18 06:21 05/21/18 06:17 PT 15.2 SECONDS (9.7-12.2) H 05/21/18 06:24 INR 1.4 05/21/18 06:24 APTT 32 SECONDS (21-34) 05/21/18 06:24
--- NOTE | 2018-05-21 23:16 | PN ---
Copied To: Guero Rivera MD Attending MD: Guero Rivera MD DATE: 05/21/2018 PHYSICAL EXAMINATION VITAL SIGNS: Patient is afebrile, pulse is 126, blood pressure 133/105, and respirations are 22. GENERAL: Patient is sitting with her NG tube. She does complain of some throat pain. I looked over. There is minimal redness and tube is seen in the posterior pharynx, otherwise, is unremarkable. She still complains of generalized pain, back pain. She was seen by the Surgery also and is unremarkable by them. HEENT: Head is atraumatic. NECK: Supple. LUNGS: Have decreased breath sounds on both bases. HEART: S1, S2 is tachy. ABDOMEN: Has surgical scar. JONAH drain. A dressing present over the surgical scar. She also has bile draining from the big stomach tube. She said she had bowel movement with blood, but they said it was old blood. EXTREMITIES: Have no edema. LABORATORY DATA: White count today jumped to 17.7, hemoglobin is 8.9, hematocrit 26.9, platelet count is however better at 344, neutrophils are 79.7, and there are no bands reported. ASSESSMENT AND PLAN: So, we will continue vancomycin, Merrem as well as Flagyl at this time. She had an x-ray and CAT scan report of which are pending at this time. We will continue present treatment as clinically she is looking little better, even though the white count has increased. Patient is status post ischemic colitis, has had laparotomy x2, and has a history of gastric bypass in the past Guero Rivera MD
[2018-05-22] MEDS: (Novolin R) Insulin Human Regular 100 units/ml vial SC SCH ×5 (00:05→18:08)
[2018-05-22] MEDS: HYDROmorphone 1 mg/ml ISec IVP PRN ×3 (00:19→07:43)
[2018-05-22] MEDS: Meropenem 1 GM in Sodium Chloride 0.9% 100 ML IVPB SCH ×3 (02:23→18:02)
[2018-05-22] MEDS: Ipratropium 0.02% Inhal Soln (0.5 mg/2.5 ml) UD IH SCH ×4 (02:34→20:18)
[2018-05-22] MEDS: metroNIDAZOLE IV 500 mg/100 ml 500 MG/100 ML BAG IVPB SCH ×3 (03:40→20:04)
[2018-05-22] MEDS: Vancomycin 1 gm/NS 200 ml 1 GM/200 ML BAG IVPB SCH ×2 (04:37→17:52)
[2018-05-22 06:45] LABS: INR 1.4; PROTHROMBIN TIME 15.5 SECONDS (9.7-12.2)
[2018-05-22 06:45] LABS: BASO # 0.1 K/uL (0.0-0.2); BASO % 0.3 % (0.0-2.0); EOS # 0.4 K/uL (0.0-0.7); EOS % 1.7 % (0.0-4.0); HEMOGLOBIN 9.4 g/dL (11.0-16.0); LYMPH # 2.2 K/uL (1.0-4.3); LYMPH % 9.9 % (20.0-40.0); MEAN CELL VOLUME 85.6 fL (81.0-99.0); MEAN CORPUSCULAR HEMOGLOBIN 28.6 pg (27.0-31.0); MEAN CORPUSCULAR HGB CONC 33.4 g/dL (33.0-37.0); MEAN PLATELET VOLUME 8.4 fL (7.2-11.7); MONO # 1.3 K/uL (0.0-0.8); MONO % 6.1 % (0.0-10.0); NEUT # 18.1 K/uL (1.8-7.0); PLATELET COUNT 438 K/uL (130-400); RED CELL DISTRIBUTION WIDTH 16.9 % (11.5-14.5)
[2018-05-22 06:53] LABS: ALBUMIN 2.9 g/dL (3.5-5.0); ALT/SGPT 51 U/L (9-52); AST/SGOT 25 U/L (14-36); BLOOD UREA NITROGEN 13 mg/dL (7-17); GFR NON-AFRICAN AMERICAN > 60
--- NOTE | 2018-05-22 08:12 | CP.PCM.PN ---
Subjective - Date & Time of Evaluation Date of Evaluation: 05/22/18 Time of Evaluation: 08:09 - Subjective Subjective: Surgery: Dr. Giron covering for Dr. Harley Pt seen and examined. CT yesterday showed now constrast exrtrav. TF were started , pt now has inreased abd pain and elevated wbc, no fever. Objective - Vital Signs/Intake and Output Vital Signs (last 24 hours): Temp Pulse Resp BP Pulse Ox 98.7 F 135 H 22 143/109 H 99 05/22/18 04:00 05/22/18 06:10 05/22/18 06:10 05/22/18 06:10 05/22/18 06:10 Intake and Output: 05/22/18 05/22/18 06:59 18:59 Intake Total 1506 Output Total 800 Balance 706 - Medications Medications: Current Medications Dextrose (Dextrose 50% Inj) 0 ml IV STAT PRN; Protocol PRN Reason: Hypoglycemia Protocol Last Admin: 05/16/18 23:40 Dose: 50 ml Dextrose (Glutose 15) 0 gm PO ONCE PRN; Protocol PRN Reason: Hypoglycemia Protocol Enoxaparin Sodium (Lovenox) 40 mg SC DAILY [facility] Last Admin: 05/21/18 09:55 Dose: 40 mg Glucagon (Glucagen Diagnostic Kit) 0 mg IM STAT PRN; Protocol PRN Reason: Hypoglycemia Protocol Hydrocortisone (Cortizone 1% Cream) 0 gm TOP TID [facility] Last Admin: 05/21/18 18:45 Dose: 1 applic Hydromorphone HCl (Dilaudid) 1.5 mg IVP Q3 PRN PRN Reason: Pain, moderate (4-7) Last Admin: 05/22/18 07:43 Dose: 1.5 mg Dextrose (Dextrose 5% In Water 1000 Ml) 1,000 mls @ 0 mls/hr IV .Q0M PRN; Protocol; Per Protocol PRN Reason: Hypoglycemia Protocol Metronidazole (Flagyl) 500 mg in 100 mls @ 100 mls/hr IVPB Q8H [facility] PRN Reason: Protocol Last Admin: 05/22/18 03:40 Dose: 100 mls/hr Meropenem 1 gm/ Sodium (Chloride) 100 mls @ 100 mls/hr IVPB Q8H [facility] PRN Reason: Protocol Last Admin: 05/22/18 02:23 Dose: 100 mls/hr Vancomycin/Sodium Chloride (Vancomycin 1 Gm/Ns 200 Ml) 1 gm in 200 mls @ 133.333 mls/hr IVPB Q12H [facility] PRN Reason: Protocol Stop: 05/23/18 17:01 Last Admin: 05/22/18 04:37 Dose: 133.333 mls/hr Acetaminophen (Ofirmev) 100 mls @ 400 mls/hr IV Q6 [facility] Stop: 05/23/18 06:01 Last Admin: 05/22/18 06:09 Dose: 400 mls/hr Sodium Chloride 35 meq/Magnesium Sulfate 6 meq/Multivitamins/Vitamin C 10 ml/ Chromium/Copper/Manganese/Seleni/Zn 1 ml/ Heparin Sodium (Porcine) 1,000 units/ Calcium Chloride 330 mg/ Amino Acids 1,025.5278 mls @ 42 mls/hr IV .Q24H ONE Stop: 05/22/18 17:59 Last Admin: 05/21/18 19:00 Dose: 42 mls/hr Potassium Chloride (Potassium Chloride 20 Meq/100 Ml) 20 meq in 100 mls @ 50 mls/hr IVPB ONCE ONE Stop: 05/22/18 09:35 Potassium Chloride (Potassium Chloride 20 Meq/100 Ml) 20 meq in 100 mls @ 50 mls/hr IVPB ONCE ONE Stop: 05/22/18 11:35 Insulin Human Regular (Novolin R) 0 unit SC Q6 [facility] PRN Reason: Protocol Last Admin: 05/22/18 06:58 Dose: 1 unit Ipratropium [place] (Atrovent) 0.5 mg IH RQ6 [facility] Last Admin: 05/22/18 02:34 Dose: Not Given Lorazepam (Ativan) 0.5 mg IVP Q12 PRN PRN Reason: Anxiety Last Admin: 05/21/18 22:20 Dose: 0.5 mg Nicotine (Nicoderm Cq) 1 patch TD DAILY [facility] Last Admin: 05/21/18 09:55 Dose: 1 patch Ondansetron HCl (Zofran Inj) 4 mg IVP Q4 PRN PRN Reason: Nausea/Vomiting Pantoprazole Sodium (Protonix Inj) 40 mg IVP Q12H [facility] Last Admin: 05/21/18 22:20 Dose: 40 mg Vitamin A (Vitamin A & D Oint Ud Foilpak) 1 ea TOP Q8 PRN PRN Reason: dry lips Last Admin: 05/20/18 11:10 Dose: 1 ea - Labs Labs: 05/22/18 06:26 05/22/18 06:26 PT 15.5 SECONDS (9.7-12.2) H 05/22/18 06:00 INR 1.4 05/22/18 06:00 APTT 32 SECONDS (21-34) 05/22/18 06:00 - Constitutional Appears: Non-toxic, No Acute Distress - Head Exam Head Exam: ATRAUMATIC, NORMOCEPHALIC - Eye Exam Eye Exam: EOMI - ENT Exam ENT Exam: Mucous Membranes Moist - Neck Exam Neck Exam: Full ROM - Respiratory Exam Respiratory Exam: NORMAL BREATHING PATTERN. absent: Accessory Muscle Use, Respiratory Distress - Cardiovascular Exam Cardiovascular Exam: Tachycardia - GI/Abdominal Exam Additional comments: soft, mildly tender, midline incision w. scant drainage, B/L blakes in place, G- tube in place, mild discomfort at G-tube site - Extremities Exam Extremities Exam: absent: Calf Tenderness, Pedal Edema - Neurological Exam Neurological Exam: Alert, Awake, Oriented x3 Assessment and Plan - Assessment and Plan (Free Text) Assessment: 37yo F with PMHx of yenni-en-Y gastric bypass in 2014 now with bowel ischemia secondary to internal hernia. POD#8 s/p Exploratory laparotomy, Reduction of internal hernia, DANNI, Drainage of abdominal collections, temporary abdominal closure (fascia left open), EGD. POD#6 s/p Re-exploration, Small bowel resection of ileum, small bowel resection of Yenni limb including previous gastrojejunostomy, reversal of bypass, primary anastomosis of ileum-ileum, ileum-ileum, and ileum-jejunum, Gastrostomy tube in bypassed stomach, EGD -R min: 5cc/12hr serosang, L min 10cc/12hr serosang -Will decrease TF to trophic 10cc/hr, c/w TPN until pt is at goal TF -Recommend transitioning from IV pain meds to PO via G-tube -Daily packing changes of midline abdominal incision -Encourage OOB, IS use, PT -will need take back to OR in 4-6 weeks from initial operation -c/w GI/dvt ppx -d/w attending Adenitis PGY4
[2018-05-22 08:25] LABS: BANDS 5 % (0-2); EOSINOPHIL 2 % (0-4); LYMPHOCYTE 8 % (20-40); MONOCYTE 6 % (0-10); NEUTROPHIL 79 % (50-75); PLATELET ESTIMATE SLIGHTLY INCREASED (NORMAL); TOTAL CELLS COUNTED 100
[2018-05-22 08:26] LABS: ANISOCYTOSIS SLIGHT; HYPOCHROMIC SLIGHT; LARGE PLATELETS PRESENT; POLYCHROMIC SLIGHT
[2018-05-22 08:27] LABS: TOXIC GRANULATION PRESENT
[2018-05-22] MEDS: Enoxaparin 40 mg Syringe SC SCH (09:21)
[2018-05-22] MEDS: Hydrocortisone 1% Cream (30 GM) TOP SCH ×3 (09:25→18:10)
--- NOTE | 2018-05-22 11:18 | CP.PCM.PN ---
Subjective - Date & Time of Evaluation Date of Evaluation: 05/22/18 Time of Evaluation: 11:15 - Subjective Subjective: Hospitalist Progress Note Patient was seen and examined at 11:15 PM 05/22/18 ICU Bed 1 Please see Assessment and Plans for details. Currently upon FULL ROS: Patient's complaint of diffuse abdominal pain continues. She is currently receiving nebulizer treatment and interacting with her son and family friend and again there are NO signs of any distress from patient. She is speaking in normal tone but states that her pain is currently 9/10. During my exam and conversation with her and her interactions with her family friend and son she is smiling. Today is the third day of her menses and she normally has 5 days NO other complaints upon FULL ROS CT Abdomen/Pelvis 05/21/18: shows postsurgical changes. No evidence of high grade bowel obstruction. Previously noted increased internal swirling of the small bowel and mesenteric pedicles in the previous study are note seen in the current exam. Diffuse mesenteric edema and mildly enlarged mesenteric lymph nodes are noted. Right Lower Lobe airspace consolidation may represent a pneumonia or atelectasis or aspiration. General: AAOx3, Does not appear to be level of pain at the time of my exam HEENT: PERRLA, NCA, Nasal Turbinates and oral mucosa are dry, NO Pharyneal erythema/exudate, NO thyromegly, NO lympadenopathy Cardio: NS1 and NS2, NO M/R/G Respiratory: Few scattered course breath sounds with expiration diffusely GI: 1 Sky Drain on Right and 1 Sky Drain on Left and G Tubes in place, Soft , ND, BSx4 are decreased Ext: Pulses are strong and equal Bilateral UE and LE, NO edema, Capillary Refill is 2 second Neuro: CN II through XII are grossly intact (1) Ischemic bowel disease Assessment & Plan: * Dr. Harley (surgery) on the case-->help appreciated * Dr. Samara Denise (Surgery) on the case-->help appreciated * Preoperative/intraoperative/postoperative management per surgery * Dr. Alvarado (GI) on the case-->help appreciated * Dr. Rivera (ID) on the case-->help appreciated * Chest xray (05/14/18): no infiltrate, pleural effusion, or pneumothorax b/l. Diminished inspiratory volume question. No acute cardiovascular disease. * Lactic: 3.6 (prior OR)-->2.4 (post OR)-->2.3-->1.5-->1.6-->0.9 * Patient has had 2 bloody bowel movements started 05/14/18. Patient's rectal: blood. She had reported abdominal pain has worsening since night of admission. Patient required emergent surgical intervention on 05/14/18 and transferred to ICU. * Per operative note (05/14/18): Diagnostic laparoscopy, Exploratory laparotomy, Reduction of internal hernia, Lysis of adhesions, Drainage of abdominal collections, temporary abdominal closure, EGD * Ischemia of yenni limb, internal hernia. Naveed drain stitched to distal common limb * ICU evaluation noted: Patient underwent emergency laparotomy for possible ischemic bowel. Patient had GI bleed. In the operating room patient underwent extensive exploratory laparotomy. Significant gangrene of the small bowel noted. Hernia was identified, which was reduced.After that the significant improvement in the vasculature noted. * Patient underwent surgery again on 05/16/18.Re-exploration, Small bowel resection of ileum, small bowel resection of Yenni limb with gastrojejunostomy, reversal of bypass, primary anastomosis of ileum-ileum, ileum-ileum, and ileum- jejunum, Gastrostomy tube in bypassed stomach, EGD * Per surgery, monitor for abdominal compartment syndrome * Recommend TPN. * Will need f/u surgery in 4-6 weeks to restore GI * Patient extubated 05/16/18. Patient is off Propofol. Patient is currently on Dialudid 1.5 mg IV Q3H * Drains included: NGT Tube, right sky, left sky, gastrostomy tube. * IV abx: * Vancomycin 1 gm IV Q12H (active since 05/18/18) * Flagyl 500mg IVPB Q8H (active since 05/15/18) * Meropenem 1 gm IVPB Q8H (active 05/15/18) * Cultures: * Intraoperative Peritoneal Fluid (05/14/18): Pseudomonas sesitive to Meropenem which patient is on * Blood culture (05/15/18): no growth to date * Urine culture: no growth Status: Acute (2) Small bowel obstruction Assessment & Plan: * Secondary to hernia * CT abdomen/Pelvis (05/13/18): Writhing appearance of mesentric vessels. Mesentric edema. No evidence of bowel obstruction. Whirling appearance of mesentric vessels is nonspecific. Prominent mesentric lymph nodes. Mesentric edema. (preop) * Patient has had 2 bloody bowel movements started 05/14/18. Patient's rectal: blood. She had reported abdominal pain has worsening since night of admission. Patient required emergent surgical intervention on 05/14/18 and transferred to ICU. Patient will need a second surgery likely tomorrow on 05/16/18. * Per operative note (05/14/18): Diagnostic laparoscopy, Exploratory laparotomy, Reduction of internal hernia, Lysis of adhesions, Drainage of abdominal collections, temporary abdominal closure, EGD * Ischemia of yenni limb, internal hernia. Naveed drain stitched to distal common limb * ICU evaluation noted: Patient underwent emergency laparotomy for possible ischemic bowel. Patient had GI bleed. In the operating room patient underwent extensive exploratory laparotomy. Significant gangrene of the small bowel noted. Hernia was identified, which was reduced.After that the significant improvement in the vasculature noted. But there is still a segment of bowel not healthy (portion of the alimentary canal from prior gastric bypass surgery--> clarified with surgery resident), * Patient underwent surgery again on 05/16/18.Re-exploration, Small bowel resection of ileum, small bowel resection of Yenni limb with gastrojejunostomy, reversal of bypass, primary anastomosis of ileum-ileum, ileum-ileum, and ileum- jejunum, Gastrostomy tube in bypassed stomach, EGD * Per surgery, monitor for abdominal compartment syndrome * Will need f/u surgery in 4-6 weeks to restore GI Status: Acute (3) Obesity (BMI 30-39.9) Assessment & Plan: * Status post gastric bypass surgery in 2013 * Operative note (2013): Yenni-en-Y gastric bypass surgery Status: Acute (4) Status post gastric bypass for obesity Assessment & Plan: * Status post gastric bypass 2013 * Operative note (2013): Yenni-en-Y gastric bypass surgery Status: Acute (5) History of Asthma Assessment & Plan: * Patient not in acute exacerbation (6) Leukocytosis Assessment & Plan: * Likely secondary to ischemic bowel secondary to small bowel obstruction () and had surgery (05/16/18) * IV abx: * Vancomycin 1 gm IV Q12H (active since 05/18/18) * Flagyl 500mg IVPB Q8H (active since 05/15/18) * Meropenem 1 gm IVPB Q8H (active since 05/15/18) * Cultures: * Intraoperative Peritoneal Fluid (05/14/18) : Pseudomonas which is sensitive to Meropenem * Blood culture (05/15/18): NO growth to date * Urine culture (05/15/18): NO growth (7) Diabetes Mellitus (Type 2); controlled Assessment & Plan: * From prior note: * Admittedly non-compliant - has not taken Januvia for one year * Accuchecks Q6H * Hypoglycemic protocol * HbA1c - 6.3 (03/10/17) * hgba1c: 02/15 * History of gastric bypass surgery (8) Hx of HTN (hypertension) Assessment & Plan: * Since Gastric Bypass has not taken meds (9) Hx of Hypothyroid Assessment & Plan: * From prior note: * Pt admitted non-compliance (10) Hypercholesterolemia Assessment & Plan: * From prior note: * Pt not taking meds * LDL 138, HDL 67, Tchol 220, Trig 112 * History of gastric bypass surgery (11) Anxiety Assessment & Plan: * Patient was taking Xanax for anxiety noted in prior note * Ativan 0.5 mg IV PRN Anxiety (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 Assessment & Plan: * 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 and from my prior note from last hospitalization (13) Smoker Assessment & Plan: * From my prior note: 1ppd x 20 yrs, 1/2 ppd x 3 yrs * Nicotine Patch 21 mg TD 1x/day (14) Prophylactic measure Assessment & Plan: * Lovenox 40 mg SC 1x/day * RIJ TLC 05/14/18 * NGT Tube * Srivastava * Off pressor * Off Paralytic * Off Fentanyl * Protonix 40mg IV Q12H * Zofran 4 mg IV Q4H PRN n/v * Clinimix 5%-25% @ 10 ml/hour * Will start Lactobacillus once patient is able to take material through G tube * Hydrocortisone 1% Cream Topical TID (abdomen around surgical sites) PRN pruritis * Wound vac removed 05/19/18 * Extubated 05/16/18 * Srivastava Catheter removed 05/20/18 Status: Acute Franki J. Denise, D.O. Objective - Vital Signs/Intake and Output Vital Signs (last 24 hours): Temp Pulse Resp BP Pulse Ox 97.6 F 127 H 25 H 140/105 H 97 05/22/18 08:00 05/22/18 09:00 05/22/18 09:00 05/22/18 08:10 05/22/18 09:00 Intake and Output: 05/22/18 05/22/18 06:59 18:59 Intake Total 1506 409 Output Total 800 965 Balance 706 -556 - Medications Medications: Current Medications Dextrose (Dextrose 50% Inj) 0 ml IV STAT PRN; Protocol PRN Reason: Hypoglycemia Protocol Last Admin: 05/16/18 23:40 Dose: 50 ml Dextrose (Glutose 15) 0 gm PO ONCE PRN; Protocol PRN Reason: Hypoglycemia Protocol Enoxaparin Sodium (Lovenox) 40 mg SC DAILY [facility] Last Admin: 05/22/18 09:21 Dose: 40 mg Glucagon (Glucagen Diagnostic Kit) 0 mg IM STAT PRN; Protocol PRN Reason: Hypoglycemia Protocol Hydrocortisone (Cortizone 1% Cream) 0 gm TOP TID [facility] Last Admin: 05/22/18 09:25 Dose: 1 applic Hydromorphone HCl (Dilaudid) 1.5 mg IVP Q3 PRN PRN Reason: Pain, moderate (4-7) Last Admin: 05/22/18 07:43 Dose: 1.5 mg Dextrose (Dextrose 5% In Water 1000 Ml) 1,000 mls @ 0 mls/hr IV .Q0M PRN; Protocol; Per Protocol PRN Reason: Hypoglycemia Protocol Metronidazole (Flagyl) 500 mg in 100 mls @ 100 mls/hr IVPB Q8H [facility] PRN Reason: Protocol Last Admin: 05/22/18 03:40 Dose: 100 mls/hr Meropenem 1 gm/ Sodium (Chloride) 100 mls @ 100 mls/hr IVPB Q8H [facility] PRN Reason: Protocol Last Admin: 05/22/18 10:37 Dose: 100 mls/hr Vancomycin/Sodium Chloride (Vancomycin 1 Gm/Ns 200 Ml) 1 gm in 200 mls @ 133.333 mls/hr IVPB Q12H [facility] PRN Reason: Protocol Stop: 05/23/18 17:01 Last Admin: 05/22/18 04:37 Dose: 133.333 mls/hr Acetaminophen (Ofirmev) 100 mls @ 400 mls/hr IV Q6 [facility] Stop: 05/23/18 06:01 Last Admin: 05/22/18 06:09 Dose: 400 mls/hr Sodium Chloride 35 meq/Magnesium Sulfate 6 meq/Multivitamins/Vitamin C 10 ml/ Chromium/Copper/Manganese/Seleni/Zn 1 ml/ Heparin Sodium (Porcine) 1,000 units/ Calcium Chloride 330 mg/ Amino Acids 1,025.5278 mls @ 42 mls/hr IV .Q24H ONE Stop: 05/22/18 17:59 Last Admin: 05/21/18 19:00 Dose: 42 mls/hr Potassium Chloride (Potassium Chloride 20 Meq/100 Ml) 20 meq in 100 mls @ 50 mls/hr IVPB ONCE ONE Stop: 05/22/18 11:35 Last Admin: 05/22/18 10:36 Dose: 50 mls/hr Insulin Human Regular (Novolin R) 0 unit SC Q6 [facility] PRN Reason: Protocol Last Admin: 05/22/18 06:58 Dose: 1 unit Ipratropium [place] (Atrovent) 0.5 mg IH RQ6 [facility] Last Admin: 05/22/18 08:40 Dose: 0.5 mg Lorazepam (Ativan) 0.5 mg IVP Q12 PRN PRN Reason: Anxiety Last Admin: 05/22/18 09:21 Dose: 0.5 mg Nicotine (Nicoderm Cq) 1 patch TD DAILY [facility] Last Admin: 05/22/18 09:21 Dose: 1 patch Ondansetron HCl (Zofran Inj) 4 mg IVP Q4 PRN PRN Reason: Nausea/Vomiting Pantoprazole Sodium (Protonix Inj) 40 mg IVP Q12H [facility] Last Admin: 05/22/18 09:21 Dose: 40 mg Vitamin A (Vitamin A & D Oint Ud Foilpak) 1 ea TOP Q8 PRN PRN Reason: dry lips Last Admin: 05/20/18 11:10 Dose: 1 ea - Labs Labs: 05/22/18 06:26 05/22/18 06:26 PT 15.5 SECONDS (9.7-12.2) H 05/22/18 06:00 INR 1.4 05/22/18 06:00 APTT 32 SECONDS (21-34) 05/22/18 06:00
[2018-05-22] MEDS: HYDROmorphone 0.5 mg/0.5 ml ISec IVP PRN ×5 (11:41→22:55)
[2018-05-22] MEDS: Fluconazole IV 200mg/100 ml NS 100 MG in Premixed IV 1 EA IVPB SCH (14:09)
--- NOTE | 2018-05-22 15:31 | CP.PCM.PN ---
Subjective - Date & Time of Evaluation Date of Evaluation: 05/22/18 Time of Evaluation: 15:31 - Subjective Subjective: Patient had no acute events overnight Objective - Vital Signs/Intake and Output Vital Signs (last 24 hours): Temp Pulse Resp BP Pulse Ox 97.6 F 134 H 20 144/91 H 75 L 05/22/18 12:00 05/22/18 14:11 05/22/18 14:11 05/22/18 14:11 05/22/18 14:11 Intake and Output: 05/22/18 05/22/18 06:59 18:59 Intake Total 1506 1974 Output Total 800 2265 Balance 706 -291 - Medications Medications: Current Medications Dextrose (Dextrose 50% Inj) 0 ml IV STAT PRN; Protocol PRN Reason: Hypoglycemia Protocol Last Admin: 05/16/18 23:40 Dose: 50 ml Dextrose (Glutose 15) 0 gm PO ONCE PRN; Protocol PRN Reason: Hypoglycemia Protocol Enoxaparin Sodium (Lovenox) 40 mg SC DAILY [facility] Last Admin: 05/22/18 09:21 Dose: 40 mg Glucagon (Glucagen Diagnostic Kit) 0 mg IM STAT PRN; Protocol PRN Reason: Hypoglycemia Protocol Hydrocortisone (Cortizone 1% Cream) 0 gm TOP TID [facility] Last Admin: 05/22/18 14:10 Dose: 1 applic Hydromorphone HCl (Dilaudid) 1.5 mg IVP Q2H PRN PRN Reason: Pain, moderate (4-7) Last Admin: 05/22/18 14:08 Dose: 1.5 mg Dextrose (Dextrose 5% In Water 1000 Ml) 1,000 mls @ 0 mls/hr IV .Q0M PRN; Protocol; Per Protocol PRN Reason: Hypoglycemia Protocol Metronidazole (Flagyl) 500 mg in 100 mls @ 100 mls/hr IVPB Q8H [facility] PRN Reason: Protocol Last Admin: 05/22/18 11:40 Dose: 100 mls/hr Meropenem 1 gm/ Sodium (Chloride) 100 mls @ 100 mls/hr IVPB Q8H [facility] PRN Reason: Protocol Last Admin: 05/22/18 10:37 Dose: 100 mls/hr Vancomycin/Sodium Chloride (Vancomycin 1 Gm/Ns 200 Ml) 1 gm in 200 mls @ 133.333 mls/hr IVPB Q12H [facility] PRN Reason: Protocol Stop: 05/23/18 17:01 Last Admin: 05/22/18 04:37 Dose: 133.333 mls/hr Acetaminophen (Ofirmev) 100 mls @ 400 mls/hr IV Q6 [facility] Stop: 05/23/18 06:01 Last Admin: 05/22/18 11:40 Dose: 400 mls/hr Sodium Chloride 35 meq/Magnesium Sulfate 6 meq/Multivitamins/Vitamin C 10 ml/ Chromium/Copper/Manganese/Seleni/Zn 1 ml/ Heparin Sodium (Porcine) 1,000 units/ Calcium Chloride 330 mg/ Amino Acids 1,025.5278 mls @ 42 mls/hr IV .Q24H ONE Stop: 05/22/18 17:59 Last Admin: 05/21/18 19:00 Dose: 42 mls/hr Parenteral Electrolytes 20 ml/Chromium/Copper/Manganese/Seleni/Zn 1 ml/ Heparin Sodium (Porcine) 1,000 units/ Amino Acids 1,022 mls @ 42 mls/hr IV .Q24H ONE Stop: 05/23/18 17:59 Fat Emulsion Intravenous (Intralipid 20%) 250 mls @ 42 mls/hr IV ONCE ONE Stop: 05/22/18 23:57 Fluconazole 100 mg/ (Miscellaneous) 50 mls @ 100 mls/hr IVPB Q24H [facility] PRN Reason: Protocol Last Admin: 05/22/18 14:09 Dose: 100 mls/hr Insulin Human Regular (Novolin R) 0 unit SC Q6 [facility] PRN Reason: Protocol Last Admin: 05/22/18 11:42 Dose: 1 unit Ipratropium [place] (Atrovent) 0.5 mg IH RQ6 [facility] Last Admin: 05/22/18 14:11 Dose: 0.5 mg Lorazepam (Ativan) 0.5 mg IVP Q12 PRN PRN Reason: Anxiety Last Admin: 05/22/18 09:21 Dose: 0.5 mg Nicotine (Nicoderm Cq) 1 patch TD DAILY [facility] Last Admin: 05/22/18 09:21 Dose: 1 patch Ondansetron HCl (Zofran Inj) 4 mg IVP Q4 PRN PRN Reason: Nausea/Vomiting Pantoprazole Sodium (Protonix Inj) 40 mg IVP Q12H [facility] Last Admin: 05/22/18 09:21 Dose: 40 mg Vitamin A (Vitamin A & D Oint Ud Foilpak) 1 ea TOP Q8 PRN PRN Reason: dry lips Last Admin: 05/20/18 11:10 Dose: 1 ea - Labs Labs: 05/22/18 06:26 05/22/18 06:26 PT 15.5 SECONDS (9.7-12.2) H 05/22/18 06:00 INR 1.4 05/22/18 06:00 APTT 32 SECONDS (21-34) 05/22/18 06:00 Assessment and Plan - Assessment and Plan (Free Text) Assessment: 37 year old female with PMH of recurrent SBOs s/p gastric bypass (2013), HTN, HLD, DM2, obesity, gastritis, asthma admitted to ICU for post op care: -POst op: to restart tube feeding as per surgery, at low rate -maintains MAP >65, off pressors, will request IR to place PICC line and remove central line -WBC iincreasing, continue abx as per ID -continue to monitor to keep spo2 >92 -continue dvt/pud ppx -wound care as per surgery -continue current management -oob to chair -monitor serial cbc and cmp/mag/phos
[2018-05-22 15:51] LABS: SQUAMOUS EPITHIAL 6 /hpf (0-5); URINE BACTERIA RARE (<OCC); URINE BILIRUBIN NEGATIVE (NEGATIVE); URINE BLOOD 2+ (NEGATIVE); URINE CALCIUM OXALATE CRYSTALS RARE /hpf (<OCC); URINE CLARITY Hazy (Clear); URINE COLOR Amber (YELLOW); URINE GLUCOSE (UA) 2+ mg/dL (Normal); URINE LEUKOCYTE ESTERASE NEG Leu/uL (Negative); URINE PROTEIN NEGATIVE (NEGATIVE); URINE UROBILINOGEN NORMAL mg/dL (0.2-1.0)
--- NOTE | 2018-05-22 16:57 | RAD ---
Date of service: 05/21/2018 HISTORY: pneumonia COMPARISON: Chest radiograph dated 05/20/2018. FINDINGS: LUNGS: Right basilar consolidation, unchanged. PLEURA: No significant pleural effusion identified, no pneumothorax apparent. CARDIOVASCULAR: Normal. OSSEOUS STRUCTURES: Unchanged. VISUALIZED UPPER ABDOMEN: Left upper quadrant surgical clips redemonstrated. OTHER FINDINGS: Enteric tube again with side hole in the esophagus and tip at the gastroesophageal junction. Right internal jugular access central venous catheter, unchanged. Partially imaged surgical drain in the left upper quadrant laterally. IMPRESSION: Malpositioned enteric tube. Stable right basilar consolidation.
--- NOTE | 2018-05-22 17:37 | RAD ---
Date of service: 05/22/2018 HISTORY: pneumonia COMPARISON: Comparison is made with FINDINGS: LUNGS: No significant interval change in the lungs noted since the previous exam. Persistent heterogeneous opacity at the right lower lung. PLEURA: No significant pleural effusion identified, no pneumothorax apparent. CARDIOVASCULAR: Normal. OSSEOUS STRUCTURES: No significant abnormalities. VISUALIZED UPPER ABDOMEN: Normal. OTHER FINDINGS: Right jugular central line is again seen in place. IMPRESSION: No significant interval change noted.
[2018-05-22] MEDS ORDERED: Fat Emulsion 20% IV 250 ML IV ONE (18:00)
[2018-05-22] MEDS ORDERED: TPN#6 IV ONE (18:00)
[2018-05-23] MEDS: (Novolin R) Insulin Human Regular 100 units/ml vial SC SCH ×5 (00:08→23:51)
[2018-05-23] MEDS: Meropenem 1 GM in Sodium Chloride 0.9% 100 ML IVPB SCH ×3 (02:46→18:03)
[2018-05-23] MEDS: Vancomycin 1 gm/NS 200 ml 1 GM/200 ML BAG IVPB SCH ×2 (04:25→17:00)
[2018-05-23] MEDS: metroNIDAZOLE IV 500 mg/100 ml 500 MG/100 ML BAG IVPB SCH ×3 (04:25→20:51)
[2018-05-23] MEDS: Ipratropium 0.02% Inhal Soln (0.5 mg/2.5 ml) UD IH SCH ×4 (05:10→21:24)
[2018-05-23 06:30] LABS: BASO # 0.1 K/uL (0.0-0.2); BASO % 0.4 % (0.0-2.0); EOS # 0.6 K/uL (0.0-0.7); EOS % 2.7 % (0.0-4.0); LYMPH # 2.5 K/uL (1.0-4.3); MEAN CELL VOLUME 86.4 fL (81.0-99.0); MEAN CORPUSCULAR HEMOGLOBIN 28.7 pg (27.0-31.0); MEAN CORPUSCULAR HGB CONC 33.2 g/dL (33.0-37.0); MEAN PLATELET VOLUME 8.7 fL (7.2-11.7); MONO % 4.8 % (0.0-10.0); NEUT # 16.3 K/uL (1.8-7.0); NEUT % 80.1 % (50.0-75.0); RBC 3.13 Mil/uL (3.80-5.20); RED CELL DISTRIBUTION WIDTH 16.7 % (11.5-14.5); WHITE BLOOD COUNT 20.3 K/uL (4.8-10.8)
[2018-05-23 06:42] LABS: ALBUMIN 2.8 g/dL (3.5-5.0); ALT/SGPT 42 U/L (9-52); AST/SGOT 15 U/L (14-36); BLOOD UREA NITROGEN 11 mg/dL (7-17); GFR NON-AFRICAN AMERICAN > 60
[2018-05-23 06:48] LABS: INR 1.4
--- NOTE | 2018-05-23 08:02 | CP.PCM.PN ---
Subjective - Date & Time of Evaluation Date of Evaluation: 05/23/18 Time of Evaluation: 07:00 - Subjective Subjective: GENERAL SURGERY PROGRESS NOTE FOR DR. ALAMO (covering for Dr. Haas) Patient seen and examined at bedside in ICU. No acute events overnight. Pt has been afebrile. Continues to report pain "all over". Denies nausea or vomiting. Having regular bowel movements. Pt has been getting OOB to drink water even though she has been instructed to remain NPO. Overnight outputs: NG tube: 400 L Sky: 20cc serous R sky: 10cc serous Objective - Vital Signs/Intake and Output Vital Signs (last 24 hours): Temp Pulse Resp BP Pulse Ox 97.2 F L 125 H 22 120/90 97 05/23/18 04:00 05/23/18 07:10 05/23/18 07:10 05/23/18 07:10 05/23/18 07:10 Intake and Output: 05/23/18 05/23/18 06:59 18:59 Intake Total 1064 52 Output Total 830 Balance 1064 -778 - Medications Medications: Current Medications Dextrose (Dextrose 50% Inj) 0 ml IV STAT PRN; Protocol PRN Reason: Hypoglycemia Protocol Last Admin: 05/16/18 23:40 Dose: 50 ml Dextrose (Glutose 15) 0 gm PO ONCE PRN; Protocol PRN Reason: Hypoglycemia Protocol Enoxaparin Sodium (Lovenox) 40 mg SC DAILY [facility] B[facility]S AT [facility] Last Admin: 05/22/18 09:21 Dose: 40 mg Glucagon (Glucagen Diagnostic Kit) 0 mg IM STAT PRN; Protocol PRN Reason: Hypoglycemia Protocol Hydrocortisone (Cortizone 1% Cream) 0 gm TOP TID [facility]S INCLUDE 234 BEDS AT [facility] Last Admin: 05/22/18 18:10 Dose: 1 applic Hydromorphone HCl (Dilaudid) 1.5 mg IVP Q2H PRN PRN Reason: Pain, moderate (4-7) Last Admin: 05/23/18 05:08 Dose: 1.5 mg Dextrose (Dextrose 5% In Water 1000 Ml) 1,000 mls @ 0 mls/hr IV .Q0M PRN; Protocol; Per Protocol PRN Reason: Hypoglycemia Protocol Metronidazole (Flagyl) 500 mg in 100 mls @ 100 mls/hr IVPB Q8H [facility] PRN Reason: Protocol Last Admin: 05/23/18 04:25 Dose: 100 mls/hr Meropenem 1 gm/ Sodium (Chloride) 100 mls @ 100 mls/hr IVPB Q8H [facility] PRN Reason: Protocol Last Admin: 05/23/18 02:46 Dose: 100 mls/hr Vancomycin/Sodium Chloride (Vancomycin 1 Gm/Ns 200 Ml) 1 gm in 200 mls @ 133.333 mls/hr IVPB Q12H [facility] PRN Reason: Protocol Stop: 05/23/18 17:01 Last Admin: 05/23/18 04:25 Dose: 133.333 mls/hr Parenteral Electrolytes 20 ml/Chromium/Copper/Manganese/Seleni/Zn 1 ml/ Heparin Sodium (Porcine) 1,000 units/ Amino Acids 1,022 mls @ 42 mls/hr IV .Q24H ONE Stop: 05/23/18 17:59 Last Admin: 05/22/18 18:12 Dose: 42 mls/hr Fluconazole 100 mg/ (Miscellaneous) 50 mls @ 100 mls/hr IVPB Q24H [facility] PRN Reason: Protocol Last Admin: 05/22/18 14:09 Dose: 100 mls/hr Insulin Human Regular (Novolin R) 0 unit SC Q6 [facility] PRN Reason: Protocol Last Admin: 05/23/18 06:12 Dose: 2 unit Ipratropium [place] (Atrovent) 0.5 mg IH RQ6 [facility] 234 BEDS AT [facility] Last Admin: 05/23/18 05:10 Dose: Not Given Lorazepam (Ativan) 0.5 mg IVP Q12 PRN PRN Reason: Anxiety Last Admin: 05/22/18 23:58 Dose: 0.5 mg Nicotine (Nicoderm Cq) 1 patch TD DAILY [facility] 234 BEDS AT [facility] Last Admin: 05/22/18 09:21 Dose: 1 patch Ondansetron HCl (Zofran Inj) 4 mg IVP Q4 PRN PRN Reason: Nausea/Vomiting Pantoprazole Sodium (Protonix Inj) 40 mg IVP Q12H [facility]S [facility]CLUDE 234 BEDS AT [facility] Last Admin: 05/22/18 22:55 Dose: 40 mg Saliva Substitute (Mouth Kote 236 Ml) 0 ml MM Q6 PRN PRN Reason: Dry mouth Vitamin A (Vitamin A & D Oint Ud Foilpak) 1 ea TOP Q8 PRN PRN Reason: dry lips Last Admin: 08/10/18 11:10 Dose: 1 ea - Labs Labs: 05/23/18 06:17 18 06:17 PT 15.0 SECONDS (9.7-12.2) H 05/23/18 06:17 INR 1.4 05/23/18 06:17 APTT 47 SECONDS (21-34) H D 05/23/18 06:17 - Constitutional Appears: Non-toxic, No Acute Distress - Respiratory Exam Respiratory Exam: NORMAL BREATHING PATTERN. absent: Respiratory Distress - Cardiovascular Exam Cardiovascular Exam: Tachycardia - GI/Abdominal Exam GI & Abdominal Exam: Soft, Tenderness (mild incisional tenderness). absent: Distended, Firm, Guarding, Rigid, Rebound - Neurological Exam Neurological Exam: Alert, Awake, Oriented x3 - Psychiatric Exam Psychiatric exam: Normal Affect, Normal Mood - Skin Skin Exam: Dry, Normal Color, Warm Assessment and Plan - Assessment and Plan (Free Text) Assessment: 37yo F with PMHx of yenni-en-Y gastric bypass in 2014 now with bowel ischemia secondary to internal hernia. POD#9 s/p Exploratory laparotomy, Reduction of internal hernia, DANNI, Drainage of abdominal collections, temporary abdominal closure (fascia left open), EGD. POD#7 s/p Re-exploration, Small bowel resection of ileum, small bowel resection of Yenni limb including previous gastrojejunostomy, reversal of bypass, primary anastomosis of ileum-ileum, ileum-ileum, and ileum-jejunum, Gastrostomy tube in bypassed stomach, EGD Outputs: NG tube in gastric pouch: 400 Right Sky: 10cc serous from 7p-7a Left Sky: 20cc serous from 7p-7a - Right sky drain was removed today - Continue strict NPO w/ NG tube to low intermittent suction in gastric pouch - On tube feeds @10cc via Gastrostomy tube - Ordered gastrograffin study to evaluate stomach/small bowel prior to increasing tube feed rate - On TPN by ICU team - Continue Ofirmev for additional pain control - DVT Prophylaxis: Lovenox - Will need surgery in 4 weeks to restore GI continuity - Dressing changed, packed in between sutures - Encouraged OOB, ambulation and IS use. Stressed importance to patient on OOB to chair - Continue PT - Discussed plan with Dr. Mack Dailey PGY-4
[2018-05-23] MEDS: Enoxaparin 40 mg Syringe SC SCH (09:50)
[2018-05-23] MEDS: Hydrocortisone 1% Cream (30 GM) TOP SCH ×3 (09:52→18:46)
--- NOTE | 2018-05-23 11:36 | CP.CCUPN ---
CCU Subjective - Physician Review Subjective (Free Text): Jose Angel Cornelius DO PGY-1, ICU progress note for Dr. Araiza Pt was seen and examined at bedside. Pt is POD #7, and continues to have diffuse abdominal pain. Pt reports having loose bowel movements, green and liquid. Pt denies fever, chills, headache, weakness, dizziness, lightheadedness , chest pain, shortness of breath, n/v, hematemasis, hematochezia, melena. Pt is producing adequate amount of clear urine via ojeda catheter. A 12-point ROS was reviewed and is otherwise unremarkable. CCU Objective - Vital Signs / Intake & Output Intake and Output (Last 8hrs): Intake & Output 05/22/05/23/18 05/23/18 22:59 06:59 14:59 Intake Total 809 896 52 Output Total 1435 830 Balance -626 896 -778 Intake: Intake, IV Amount 601 836 42 R prox port 133 Right Distal Port 168 336 42 Internal Jugular Right Proximal Port 300 500 Tube Feeding 40 60 10 TPN/PPN 168 Output: Drainage 1035 430 Left Abdomen 15 30 Left Lower Abdomen 150 Right Lower Abdomen 20 Right Nare 850 400 Urine 200 400 Urine, Voided 200 400 Stool 200 Other: # Bowel Movements 1 1 - Physical Exam Head: Positive for: Atraumatic, Normocephalic Pupils: Positive for: PERRL Extroacular Muscles: Positive for: EOMI Conjunctiva: Positive for: Normal Mouth: Positive for: Moist Mucous Membranes Nose (External): Positive for: Other ((+) NGT on low int suction) Neck: Positive for: Normal Range of Motion, Other ((+) central line in right IJ) Respiratory/Chest: Positive for: Clear to Auscultation, Good Air Exchange. Negative for: Respiratory Distress, Wheezes, Rales Cardiovascular: Positive for: Normal S1, S2, Tachycardic Abdomen: Positive for: Tenderness (diffuse tenderness; soft abdomen), Other ( (+ ) large vertical incision with dressing in place, no signs of infection, C/D/I, no erythema, (+) left anali drain with serosanguinous fluid, (+) g-tube for feeds) . Negative for: Peritoneal Signs Upper Extremity: Positive for: Normal Inspection, NORMAL PULSES Lower Extremity: Positive for: Normal Inspection, NORMAL PULSES. Negative for: CALF TENDERNESS Neurological: Positive for: GCS=15 Skin: Positive for: Warm, Dry Psychiatric: Positive for: Alert, Oriented x 3 - Medications Active Medications: Active Medications Generic Name Dose Route Start Last Admin Trade Name Freq PRN Reason Stop Dose Admin Dextrose 0 ml 05/15/18 08:36 05/16/18 23:40 Dextrose 50% Inj IV 50 ml STAT PRN Administration Hypoglycemia Protocol Protocol Dextrose 0 gm 05/15/18 08:36 Glutose 15 PO ONCE PRN Hypoglycemia Protocol Protocol Enoxaparin Sodium 40 mg 05/19/18 10:00 05/23/18 09:50 Lovenox SC 40 mg DAILY KATELYN Administration Glucagon 0 mg 05/15/18 08:36 Glucagen Diagnostic Kit IM STAT PRN Hypoglycemia Protocol Protocol Hydrocortisone 0 gm 05/19/18 10:00 05/23/18 09:52 Cortizone 1% Cream TOP 1 applic TID KATELYN Administration Hydromorphone HCl 1.5 mg 05/23/18 02:15 05/23/18 10:49 Dilaudid IVP 1.5 mg Q2H PRN Administration Pain, moderate (4-7) Dextrose 1,000 mls @ 0 mls/hr 05/15/18 08:36 Dextrose 5% In Water 1000 Ml IV .Q0M PRN Hypoglycemia Protocol Protocol Per Protocol Metronidazole 500 mg in 100 mls @ 100 mls/hr 05/15/18 12:00 05/23/18 11:24 Flagyl IVPB 100 mls/hr Q8H KATELYN Administration Protocol Meropenem 1 gm/ Sodium 100 mls @ 100 mls/hr 05/15/18 11:00 05/23/18 10:15 Chloride IVPB 100 mls/hr Q8H KATELYN Administration Protocol Vancomycin/Sodium Chloride 1 gm in 200 mls @ 133.333 mls/hr 05/18/18 17:00 04:25 Vancomycin 1 Gm/Ns 200 Ml IVPB 05/23/18 17:01 133.333 mls/hr Q12H KATELYN Administration Protocol Parenteral Electrolytes 20 ml/ 1,022 mls @ 42 mls/hr 05/22/18 18:00 05/22/18 18:12 Chromium/Copper/Manganese/ IV 05/23/18 17:59 42 mls/hr Seleni/Zn 1 ml/ Heparin Sodium .Q24H ONE Administration (Porcine) 1,000 units/ Amino Acids Fluconazole 100 mg/ 50 mls @ 100 mls/hr 05/22/18 13:30 05/22/18 14:09 Miscellaneous IVPB 100 mls/hr Q24H KATELYN Administration Protocol Insulin Human Regular 0 unit 05/20/18 00:00 05/23/18 06:12 Novolin R SC 2 unit Q6 KATELYN Administration Protocol Ipratropium [place] 0.5 mg 05/20/18 15:15 05/23/18 05:10 Atrovent IH Not Given RQ6 KATELYN Nicotine 1 patch 05/18/18 10:00 05/23/18 09:51 Nicoderm Cq TD 1 patch DAILY KATELYN Administration Pantoprazole Sodium 40 mg 05/23/18 10:00 05/23/18 09:51 Protonix Inj IVP 40 mg DAILY KATELYN Administration Saliva Substitute 0 ml 05/22/18 21:45 Mouth Kote 236 Ml MM Q6 PRN Dry mouth Vitamin A 1 ea 05/20/18 10:26 05/20/18 11:10 Vitamin A & D Oint Ud Foilpak TOP 1 ea Q8 PRN Administration dry lips - Patient Studies Lab Studies: Microbiology Studies 05/22/18 15:33 Urine Culture - Final Urine,Clean Catch No Growth (<1,000 CFU/ML) Lab Studies 05/23/18 05/23/18 05/23/18 Range/Units 06:17 06:17 06:17 WBC 20.3 H (4.8-10.8) K/uL RBC 3.13 L (3.80-5.20) Mil/uL Hgb 9.0 L (11.0-16.0) g/dL Hct 27.0 L (34.0-47.0) % MCV 86.4 (81.0-99.0) fL MCH 28.7 (27.0-31.0) pg MCHC 33.2 (33.0-37.0) g/dL RDW 16.7 H (11.5-14.5) % Plt Count 517 H (130-400) K/uL MPV 8.7 (7.2-11.7) fL Neut % (Auto) 80.1 H (50.0-75.0) % Lymph % (Auto) 12.0 L (20.0-40.0) % [place] % (Auto) 4.8 (0.0-10.0) % Eos % (Auto) 2.7 (0.0-4.0) % Baso % (Auto) 0.4 (0.0-2.0) % Neut # (Auto) 16.3 H (1.8-7.0) K/uL Lymph # (Auto) 2.5 (1.0-4.3) K/uL [place] # (Auto) 1.0 H (0.0-0.8) K/uL Eos # (Auto) 0.6 (0.0-0.7) K/uL Baso # (Auto) 0.1 (0.0-0.2) K/uL PT 15.0 H (9.7-12.2) SECONDS INR 1.4 APTT 47 H D (21-34) SECONDS Sodium 141 (132-148) mmol/L Potassium 3.4 L (3.6-5.2) mmol/L Chloride 104 (98-107) mmol/L Carbon Dioxide 25 (22-30) mmol/L Anion Gap 16 (10-20) BUN 11 (7-17) mg/dL Creatinine 0.5 L (0.7-1.2) mg/dL Est GFR ( Amer) > 60 Est GFR (Non-Af Amer) > 60 Random Glucose 179 H (65-105) mg/dL Calcium 8.0 L (8.6-10.4) mg/dl Phosphorus 3.6 (2.5-4.5) mg/dL Magnesium 2.0 (1.6-2.3) mg/dL Total Bilirubin 0.5 (0.2-1.3) mg/dL AST 15 (14-36) U/L ALT 42 (9-52) U/L Alkaline Phosphatase 205 H (38-126) U/L Total Protein 5.8 L (6.3-8.3) g/dL Albumin 2.8 L (3.5-5.0) g/dL Globulin 2.9 (2.2-3.9) gm/dL Albumin/Globulin Ratio 1.0 (1.0-2.1) Urine Color (YELLOW) Urine Clarity (Clear) Urine pH (5.0-8.0) Ur Specific Call (1.003-1.030) Urine Protein (NEGATIVE) mg/dL Urine Glucose (UA) (Normal) mg/dL Urine Ketones (NEGATIVE) mg/dL Urine Blood (NEGATIVE) Urine Nitrate (NEGATIVE) Urine Bilirubin (NEGATIVE) Urine Urobilinogen (0.2-1.0) mg/dL Ur Leukocyte Esterase (Negative) Mauro/uL Urine WBC (Auto) (0-5) /hpf Urine RBC (Auto) (0-3) /hpf Ur Squamous Epith Cells (0-5) /hpf Calcium Oxalate Crystal (<OCC) /hpf Urine Bacteria (<OCC) Vancomycin Trough (5.0-10.0) ug/mL C. difficile Ag & Toxin (NEGATIVE) 05/22/18 05/22/18 05/22/18 Range/Units 18:14 13:30 13:30 WBC (4.8-10.8) K/uL RBC (3.80-5.20) Mil/uL Hgb (11.0-16.0) g/dL Hct (34.0-47.0) % MCV (81.0-99.0) fL MCH (27.0-31.0) pg MCHC (33.0-37.0) g/dL RDW (11.5-14.5) % Plt Count (130-400) K/uL MPV (7.2-11.7) fL Neut % (Auto) (50.0-75.0) % Lymph % (Auto) (20.0-40.0) % Childress % (Auto) (0.0-10.0) % Eos % (Auto) (0.0-4.0) % Baso % (Auto) (0.0-2.0) % Neut # (Auto) (1.8-7.0) K/uL Lymph # (Auto) (1.0-4.3) K/uL Childress # (Auto) (0.0-0.8) K/uL Eos # (Auto) (0.0-0.7) K/uL Baso # (Auto) (0.0-0.2) K/uL PT (9.7-12.2) SECONDS INR APTT (21-34) SECONDS Sodium (132-148) mmol/L Potassium (3.6-5.2) mmol/L Chloride (98-107) mmol/L Carbon Dioxide (22-30) mmol/L Anion Gap (10-20) BUN (7-17) mg/dL Creatinine (0.7-1.2) mg/dL Est GFR ( Amer) Est GFR (Non-Af Amer) Random Glucose (65-105) mg/dL Calcium (8.6-10.4) mg/dl Phosphorus (2.5-4.5) mg/dL Magnesium (1.6-2.3) mg/dL Total Bilirubin (0.2-1.3) mg/dL AST (14-36) U/L ALT (9-52) U/L Alkaline Phosphatase (38-126) U/L Total Protein (6.3-8.3) g/dL Albumin (3.5-5.0) g/dL Globulin (2.2-3.9) gm/dL Albumin/Globulin Ratio (1.0-2.1) Urine Color Helen (YELLOW) Urine Clarity Hazy (Clear) Urine pH 5.0 (5.0-8.0) Ur Specific Call 1.026 (1.003-1.030) Urine Protein Negative (NEGATIVE) mg/dL Urine Glucose (UA) 2+ H (Normal) mg/dL Urine Ketones Negative (NEGATIVE) mg/dL Urine Blood 2+ H (NEGATIVE) Urine Nitrate Negative (NEGATIVE) Urine Bilirubin Negative (NEGATIVE) Urine Urobilinogen Normal (0.2-1.0) mg/dL Ur Leukocyte Esterase Neg (Negative) Mauro/uL Urine WBC (Auto) 10 H (0-5) /hpf Urine RBC (Auto) 23 H (0-3) /hpf Ur Squamous Epith Cells 6 H (0-5) /hpf Calcium Oxalate Crystal Rare (<OCC) /hpf Urine Bacteria Rare (<OCC) Vancomycin Trough 5.2 (5.0-10.0) ug/mL C. difficile Ag & Toxin Negative (NEGATIVE) Laboratory Results - last 24 hr 05/22/18 05/22/18 05/22/18 13:30 13:30 18:14 WBC RBC Hgb Hct MCV MCH MCHC RDW Plt Count MPV Neut % (Auto) Lymph % (Auto) [place] % (Auto) Eos % (Auto) Baso % (Auto) Neut # (Auto) Lymph # (Auto) [place] # (Auto) Eos # (Auto) Baso # (Auto) PT INR APTT Sodium Potassium Chloride Carbon Dioxide Anion Gap BUN Creatinine Est GFR ( Amer) Est GFR (Non-Af Amer) Random Glucose Calcium Phosphorus Magnesium Total Bilirubin AST ALT Alkaline Phosphatase Total Protein Albumin Globulin Albumin/Globulin Ratio Urine Color Helen Urine Clarity Hazy Urine pH 5.0 Ur Specific Call 1.026 Urine Protein Negative Urine Glucose (UA) 2+ H Urine Ketones Negative Urine Blood 2+ H Urine Nitrate Negative Urine Bilirubin Negative Urine Urobilinogen Normal Ur Leukocyte Esterase Neg Urine WBC (Auto) 10 H Urine RBC (Auto) 23 H Ur Squamous Epith Cells 6 H Calcium Oxalate Crystal Rare Urine Bacteria Rare Vancomycin Trough 5.2 C. difficile Ag & Toxin Negative 05/23/18 05/23/18 05/23/18 06:17 06:17 06:17 WBC 20.3 H RBC 3.13 L Hgb 9.0 L Hct 27.0 L MCV 86.4 MCH 28.7 MCHC 33.2 RDW 16.7 H Plt Count 517 H MPV 8.7 Neut % (Auto) 80.1 H Lymph % (Auto) 12.0 L [place] % (Auto) 4.8 Eos % (Auto) 2.7 Baso % (Auto) 0.4 Neut # (Auto) 16.3 H Lymph # (Auto) 2.5 [place] # (Auto) 1.0 H Eos # (Auto) 0.6 Baso # (Auto) 0.1 PT 15.0 H INR 1.4 APTT 47 H D Sodium 141 Potassium 3.4 L Chloride 104 Carbon Dioxide 25 Anion Gap 16 BUN 11 Creatinine 0.5 L Est GFR ( Amer) > 60 Est GFR (Non-Af Amer) > 60 Random Glucose 179 H Calcium 8.0 L Phosphorus 3.6 Magnesium 2.0 Total Bilirubin 0.5 AST 15 ALT 42 Alkaline Phosphatase 205 H Total Protein 5.8 L Albumin 2.8 L Globulin 2.9 Albumin/Globulin Ratio 1.0 Urine Color Urine Clarity Urine pH Ur Specific Call Urine Protein Urine Glucose (UA) Urine Ketones Urine Blood Urine Nitrate Urine Bilirubin Urine Urobilinogen Ur Leukocyte Esterase Urine WBC (Auto) Urine RBC (Auto) Ur Squamous Epith Cells Calcium Oxalate Crystal Urine Bacteria Vancomycin Trough C. difficile Ag & Toxin Fingerstick Blood Sugar Results: 169 Review of Systems - Review of Systems All systems: reviewed and no additional remarkable complaints except (as per HPI ) Critical Care Progress Note - Prophylaxis GI Prophylaxis GI: PPI - Prophylaxis DVT Prophylaxis DVT: Lovenox - Nutrition Nutrition: Nutrition Category Date Time Status NPO Diet [DIET] Diets 05/14/18 Breakfast Active Assessment/Plan - Assessment and Plan (Free Text) Assessment: This is a 37 year old female with PMH of recurrent SBOs s/p gastric bypass (2013 ), HTN, HLD, DM2, obesity, gastritis, asthma who was BIBA to ED on 05/14/18 with complaints of 1 day history of severe abdominal pain associated with 3 episodes of NBNB emesis. Abd/pelv CT was positive for SBO, with small amount of free fluid in the pelvis, enteritis, mesenteric edema and internal hernia. Pt noted to have BRB CT, with hypotension (placed on levophed gtt) and was taken to the OR for emergency ex lap for possible bowel ischemia. In the OR, internal hernia was reduced, lysis of adhesions, and pt was noted to have mesenteric ischemia of yenni limb. One ANALI drain was placed into pelvis, and pt was brought to ICU with open surgical abdominal wound, intubation, checmical paralysis, and sedation. Pt has plans to return to OR on 05/16/18. On 05/15 POD#1, pt anemic (hgb 7.7) and received 2 units of FFP and 2 units of pRBCs with adequate response. Levophed was discontinuated on 05/15 at 1pm. On 05/16, pt returned to OR for re- exploration, Small bowel resection of ileum, small bowel resection of Yenni limb with gastrojejunostomy, reversal of bypass, primary anastomosis of ileum-ileum, ileum-ileum, and ileum-jejunum, Gastrostomy tube in bypassed stomach, EGD. Pt is in the ICU for monitoring s/p abdominal surgery. On 05/17, pt was placed on bpap, with lasix given, due to increased work of breathing, and increased pulmonary congestion on cxr. 05/20, Pt noted to have melanous bowel movement, with BRB on tissue after wiping. Pt was started on tube feeds on 05/21. Pt continues to be managed in the ICU for post-op care. Plan: Neuro: - continue to monitor for mental status changes - pt is AAOx3 - analgesia with dilaudid 1.5 mg q2 prn - Nicotine patch QD for tobacco dependance Cardio: - maintain MAP > 65 mmHg - plan to remove right IJ central line, and insert PICC line via IR Pulm: - maintain spo2 >92% - CXR (05/23) shows some improvement. - continue to encourage use of incentive spirometer - oral care - continue atrovent GI: - POD#9 s/p Exploratory laparotomy, Reduction of internal hernia, Lysis of adhesions, Drainage of abdominal collections, temporary abdominal closure ( fascia left open), EGD. - POD#7 s/p Re-exploration, Small bowel resection of ileum, small bowel resection of Yenni limb with gastrojejunostomy, reversal of bypass, primary anastomosis of ileum-ileum, ileum-ileum, and ileum-jejunum, Gastrostomy tube in bypassed stomach, EGD - large midline vertical incision, no signs of infection at this time - right anali drain, g-tube in place - Pt was started on TF over the weekend - TPN feeds will continue until pt is at goal TF - NPO; pt strictly informed to not drink or eat anything; saliva substitute - NGT on low int suction as per surgery - Transaminitis has resolved - protonix for pud ppx - continue OOB to chair via PT - f/u surgery recs Heme: - H/h stable - lovenox 40 sc for vte ppx ID: - afebrile - leukocytosis is downtrending - continue vanco, merrem, flagyl, fluconazole as per ID - peritoneal fluid culture final shows P. aeruginosa (pt on merrem) - blood cultures x2 final shows no growth - urine culture final shows no growth - f/u ID recs Renal: - strict Is and Os - maintain minimum of 0.5 mL/kg/hr - BUN/Cr is stable and wnl - maintain euvolemia - replete electrolytes as needed Endo: - maintain euglycemia - accucheck q6h - ISS low q6h Ppx: protonix for pud; lovenox/SCDs for vte ppx Dispo: Pt will remain in ICU Case was reviewed and discussed with attending physician, Dr. Araiza
[2018-05-23] MEDS: Fluconazole IV 200mg/100 ml NS 100 MG in Premixed IV 1 EA IVPB SCH (12:30)
[2018-05-23] MEDS ORDERED: HYDROmorphone 1 mg/ml ISec IVP PRN (12:59)
--- NOTE | 2018-05-23 13:10 | RAD ---
Date of service: 05/23/2018 HISTORY: pneumonia COMPARISON: 05/21/2018 CT abdomen and pelvis. May 22, 2018. Single-view chest FINDINGS: LUNGS: No active pulmonary disease. PLEURA: No significant pleural effusion identified, no pneumothorax apparent. CARDIOVASCULAR: No radiographic findings to suggest acute or significant cardiovascular disease. Venous access catheter in stable, satisfactory position. OSSEOUS STRUCTURES: No significant abnormalities. VISUALIZED UPPER ABDOMEN: Normal. OTHER FINDINGS: Stable position of nasogastric tube, the tip appears at the gastroesophageal junction. IMPRESSION: No active pulmonary disease. Stable position of venous access catheter. Nasogastric tube tip at the gastroesophageal junction a finding confirmed on prior CT of the abdomen and pelvis.
--- NOTE | 2018-05-23 17:40 | CP.PCM.PN ---
Subjective - Date & Time of Evaluation Date of Evaluation: 05/23/18 Time of Evaluation: 05:00 - Subjective Subjective: dictated Objective - Vital Signs/Intake and Output Vital Signs (last 24 hours): Temp Pulse Resp BP Pulse Ox 97.2 F L 132 H 18 128/96 H 99 05/23/18 04:00 05/23/18 12:10 05/23/18 12:10 05/23/18 12:10 05/23/18 12:10 Intake and Output: 05/23/18 05/23/18 06:59 18:59 Intake Total 1064 913 Output Total 830 Balance 1064 83 - Medications Medications: Current Medications Dextrose (Dextrose 50% Inj) 0 ml IV STAT PRN; Protocol PRN Reason: Hypoglycemia Protocol Last Admin: 05/16/18 23:40 Dose: 50 ml Dextrose (Glutose 15) 0 gm PO ONCE PRN; Protocol PRN Reason: Hypoglycemia Protocol Enoxaparin Sodium (Lovenox) 40 mg SC DAILY [facility] Last Admin: 05/23/18 09:50 Dose: 40 mg Glucagon (Glucagen Diagnostic Kit) 0 mg IM STAT PRN; Protocol PRN Reason: Hypoglycemia Protocol Hydrocortisone (Cortizone 1% Cream) 0 gm TOP TID [facility] Last Admin: 05/23/18 09:52 Dose: 1 applic Hydromorphone HCl (Dilaudid) 1.5 mg IVP Q3 PRN PRN Reason: Pain, moderate (4-7) Last Admin: 05/23/18 14:14 Dose: 1.5 mg Dextrose (Dextrose 5% In Water 1000 Ml) 1,000 mls @ 0 mls/hr IV .Q0M PRN; Protocol; Per Protocol PRN Reason: Hypoglycemia Protocol Metronidazole (Flagyl) 500 mg in 100 mls @ 100 mls/hr IVPB Q8H KATELYN PRN Reason: Protocol Last Admin: 05/23/18 11:24 Dose: 100 mls/hr Meropenem 1 gm/ Sodium (Chloride) 100 mls @ 100 mls/hr IVPB Q8H KATELYN PRN Reason: Protocol Last Admin: 05/23/18 10:15 Dose: 100 mls/hr Parenteral Electrolytes 20 ml/Chromium/Copper/Manganese/Seleni/Zn 1 ml/ Heparin Sodium (Porcine) 1,000 units/ Amino Acids 1,022 mls @ 42 mls/hr IV .Q24H ONE Stop: 05/23/18 17:59 Last Admin: 05/22/18 18:12 Dose: 42 mls/hr Fluconazole 100 mg/ (Miscellaneous) 50 mls @ 100 mls/hr IVPB Q24H KATELYN PRN Reason: Protocol Last Admin: 05/23/18 12:30 Dose: 100 mls/hr Acetaminophen (Ofirmev) 100 mls @ 400 mls/hr IV Q6 KATELYN Stop: 05/25/18 18:01 Potassium Chloride 20 meq/Insulin Human Regular 10 unit/Heparin Sodium (Porcine ) 1, 000 units/ Chromium/Copper/Manganese/Zinc 1 ml/Multivitamins/Vitamin C 10 ml/Amino Acids/Electrolytes/Dextrose 1,022.1 mls @ 63 mls/hr IV .[id number] [facility] Stop: 05/24/18 10:00 Potassium Chloride 20 meq/Insulin Human Regular 10 unit/Heparin Sodium (Porcine ) 1, 000 units/ Chromium/Copper/Manganese/Zinc 1 ml/ Amino Acids/Electrolytes/ Dextrose 1,012.1 mls @ 63 mls/hr IV .[id number] [facility] Stop: 05/24/18 18:00 Insulin Human Regular (Novolin R) 0 unit SC Q6 KATELYN PRN Reason: Protocol Last Admin: 05/23/18 12:44 Dose: 1 unit Ipratropium [place] (Atrovent) 0.5 mg IH RQ6 [facility] Last Admin: 05/23/18 14:00 Dose: 0.5 mg Nicotine (Nicoderm Cq) 1 patch TD DAILY [facility] Last Admin: 05/23/18 09:51 Dose: 1 patch Pantoprazole Sodium (Protonix Inj) 40 mg IVP DAILY [facility] Last Admin: 05/23/18 09:51 Dose: 40 mg Saliva Substitute (Mouth Kote 236 Ml) 0 ml MM Q6 PRN PRN Reason: Dry mouth Vitamin A (Vitamin A & D Oint Ud Foilpak) 1 ea TOP Q8 PRN PRN Reason: dry lips Last Admin: 05/20/18 11:10 Dose: 1 ea - Labs Labs: 05/23/18 06:17 05/23/18 06:17 PT 15.0 SECONDS (9.7-12.2) H 05/23/18 06:17 INR 1.4 05/23/18 06:17 APTT 47 SECONDS (21-34) H D 05/23/18 06:17
--- NOTE | 2018-05-23 17:47 | CP.PCM.PN ---
Subjective - Date & Time of Evaluation Date of Evaluation: 05/23/18 Time of Evaluation: 17:45 - Subjective Subjective: Medical Attending Note: Patient denies fever, denies chills, denies chest pain, denies palpitations, reports abdominal pain (however, she is extremely comfortable at bedside), reports she is having bowel movement at bedside on bedpn, and reports she has completed her menstruation. Patient is aware she needs to re-establish her health care maintenace. She reports she hasnt seen a PMD/clinic for 2 years. She reports she sees a pain management doctor, will need to check [place]PMP to see which narcotic/anxiety she takes to prevent withdrawal. She understands gastric bypass surgery requires lifelong vitamin supplementation. Objective - Vital Signs/Intake and Output Vital Signs (last 24 hours): Temp Pulse Resp BP Pulse Ox 97.2 F L 132 H 18 128/96 H 99 05/23/18 04:00 05/23/18 12:10 05/23/18 12:10 05/23/18 12:10 05/23/18 12:10 Intake and Output: 05/23/18 05/23/18 06:59 18:59 Intake Total 1064 913 Output Total 830 Balance 1064 83 - Medications Medications: Current Medications Dextrose (Dextrose 50% Inj) 0 ml IV STAT PRN; Protocol PRN Reason: Hypoglycemia Protocol Last Admin: 05/16/18 23:40 Dose: 50 ml Dextrose (Glutose 15) 0 gm PO ONCE PRN; Protocol PRN Reason: Hypoglycemia Protocol Enoxaparin Sodium (Lovenox) 40 mg SC DAILY [facility] Last Admin: 05/23/18 09:50 Dose: 40 mg Glucagon (Glucagen Diagnostic Kit) 0 mg IM STAT PRN; Protocol PRN Reason: Hypoglycemia Protocol Hydrocortisone (Cortizone 1% Cream) 0 gm TOP TID [facility] Last Admin: 05/23/18 09:52 Dose: 1 applic Hydromorphone HCl (Dilaudid) 1.5 mg IVP Q3 PRN PRN Reason: Pain, moderate (4-7) Last Admin: 05/23/18 14:14 Dose: 1.5 mg Dextrose (Dextrose 5% In Water 1000 Ml) 1,000 mls @ 0 mls/hr IV .Q0M PRN; Protocol; Per Protocol PRN Reason: Hypoglycemia Protocol Metronidazole (Flagyl) 500 mg in 100 mls @ 100 mls/hr IVPB Q8H KATELYN PRN Reason: Protocol Last Admin: 05/23/18 11:24 Dose: 100 mls/hr Meropenem 1 gm/ Sodium (Chloride) 100 mls @ 100 mls/hr IVPB Q8H KATELYN PRN Reason: Protocol Last Admin: 05/23/18 10:15 Dose: 100 mls/hr Parenteral Electrolytes 20 ml/Chromium/Copper/Manganese/Seleni/Zn 1 ml/ Heparin Sodium (Porcine) 1,000 units/ Amino Acids 1,022 mls @ 42 mls/hr IV .Q24H ONE Stop: 05/23/18 17:59 Last Admin: 05/22/18 18:12 Dose: 42 mls/hr Fluconazole 100 mg/ (Miscellaneous) 50 mls @ 100 mls/hr IVPB Q24H [facility] PRN Reason: Protocol Last Admin: 05/23/18 12:30 Dose: 100 mls/hr Acetaminophen (Ofirmev) 100 mls @ 400 mls/hr IV Q6 [facility] Stop: 05/25/18 18:01 Potassium Chloride 20 meq/Insulin Human Regular 10 unit/Heparin Sodium (Porcine ) 1, 000 units/ Chromium/Copper/Manganese/Zinc 1 ml/Multivitamins/Vitamin C 10 ml/Amino Acids/Electrolytes/Dextrose 1,022.1 mls @ 63 mls/hr IV .[id number] [facility] Stop: 05/24/18 10:00 Potassium Chloride 20 meq/Insulin Human Regular 10 unit/Heparin Sodium (Porcine ) 1, 000 units/ Chromium/Copper/Manganese/Zinc 1 ml/ Amino Acids/Electrolytes/ Dextrose 1,012.1 mls @ 63 mls/hr IV .[id number] [facility] Stop: 05/24/18 18:00 Insulin Human Regular (Novolin R) 0 unit SC Q6 [facility] PRN Reason: Protocol Last Admin: 05/23/18 12:44 Dose: 1 unit Ipratropium [place] (Atrovent) 0.5 mg IH RQ6 [facility] Last Admin: 05/23/18 14:00 Dose: 0.5 mg Nicotine (Nicoderm Cq) 1 patch TD DAILY [facility] Last Admin: 05/23/18 09:51 Dose: 1 patch Pantoprazole Sodium (Protonix Inj) 40 mg IVP DAILY [facility] Last Admin: 05/23/18 09:51 Dose: 40 mg Saliva Substitute (Mouth Kote 236 Ml) 0 ml MM Q6 PRN PRN Reason: Dry mouth Vitamin A (Vitamin A & D Oint Ud Foilpak) 1 ea TOP Q8 PRN PRN Reason: dry lips Last Admin: 05/20/18 11:10 Dose: 1 ea - Labs Labs: 05/23/18 06:17 05/23/18 06:17 PT 15.0 SECONDS (9.7-12.2) H 05/23/18 06:17 INR 1.4 05/23/18 06:17 APTT 47 SECONDS (21-34) H D 05/23/18 06:17 - Constitutional Appears: Non-toxic, No Acute Distress - Head Exam Head Exam: NORMAL INSPECTION Additional comments: +NGT - Eye Exam Eye Exam: EOMI - Respiratory Exam Respiratory Exam: Clear to Ausculation Bilateral, NORMAL BREATHING PATTERN. absent: Rales, Rhonchi, Wheezes - Cardiovascular Exam Cardiovascular Exam: Tachycardia (-), +S1, +S2 - GI/Abdominal Exam GI & Abdominal Exam: Guarding, Soft, Hypoactive Bowel Sounds, Rebound (mild rebound with stethoscope). absent: Distended, Firm, Rigid Additional comments: dressing over the abdomen: mild drainage: no blood; left min; serosaginuious gastrotomy tube connect for feeding tube - Extremities Exam Extremities Exam: absent: Pedal Edema, Tenderness - Neurological Exam Neurological Exam: Alert, Awake, Oriented x3 - Skin Skin Exam: Dry, Normal Color, Warm Assessment and Plan (1) Ischemic bowel disease Status: Acute (2) Obesity (BMI 30-39.9) Status: Acute (3) Status post gastric bypass for obesity Status: Resolved (4) Small bowel obstruction Status: Acute (5) Prophylactic measure Status: Acute Attending/Attestation - Attestation I have personally seen and examined this patient.: Yes I have fully participated in the care of the patient.: Yes I have reviewed all pertinent clinical information, including history, physical exam and plan: Yes Notes (Text): (1) Ischemic bowel disease Assessment & Plan: * Dr. Harley (surgery) on the case-->help appreciated * Dr. Giron covering. * Dr. Samara Denise (Surgery) on the case-->help appreciated * Preoperative/intraoperative/postoperative management per surgery * Dr. Alvarado (GI) on the case-->help appreciated * Dr. Rivera (ID) on the case-->help appreciated * Chest xray (05/14/18): no infiltrate, pleural effusion, or pneumothorax b/l. Diminished inspiratory volume question. No acute cardiovascular disease. * Lactic: 3.6 (prior OR)-->2.4 (post OR)-->2.3-->1.5-->1.6-->0.9 * Patient has had 2 bloody bowel movements started 05/14/18. Patient's rectal: blood. She had reported abdominal pain has worsening since night of admission. Patient required emergent surgical intervention on 05/14/18 and transferred to ICU. Patient will need a second surgery likely tomorrow on 05/16/18. * Per operative note (05/14/18): Diagnostic laparoscopy, Exploratory laparotomy, Reduction of internal hernia, Lysis of adhesions, Drainage of abdominal collections, temporary abdominal closure, EGD * Ischemia of yenni limb, internal hernia. [place] drain stitched to distal common limb * ICU evaluation noted: Patient underwent emergency laparotomy for possible ischemic bowel. Patient had GI bleed. In the operating room patient underwent extensive exploratory laparotomy. Significant gangrene of the small bowel noted. Hernia was identified, which was reduced.After that the significant improvement in the vasculature noted. * Patient underwent surgery again on 05/16/18.Re-exploration, Small bowel resection of ileum, small bowel resection of Yenni limb with gastrojejunostomy, reversal of bypass, primary anastomosis of ileum-ileum, ileum-ileum, and ileum- jejunum, Gastrostomy tube in bypassed stomach, EGD * Per surgery, monitor for abdominal compartment syndrome * Surgery has recommended for gastrograffin study to eval stomac/small bowel prior to increase feeding tube * Dressing changed, packed in between sutures * Orimev added by surgery for pain control * Will need f/u surgery in 4-6 weeks to restore GI * Patient extubated 05/16/18. Main complaint is abdominal pain, however she is quite comfortable compared to when I met her the day she required emergent surgery. * Drains included: NGT Tube, gastrostomy tube, left nlake; right min was removed 05/23/18 * IV abx: * Flagyl 500mg IVPB Q8H (active since 05/15/18) * Meropenem 1 gm IVPB Q8H (active 05/15/18) * Cultures: * Peritoneal Fluid : Pseudomonas Aeruginosa sensitive to Meropenem * Wound Culture (05/23): pending * Blood culture (05/15/18): no growth after 5 days X2 * Blood culture (05/22/18): no growth after 5 days X2 * Urine culture: no growth Status: Acute (2) Small bowel obstruction Assessment & Plan: * Secondary to hernia * CT abdomen/Pelvis (05/13/18): Writhing appearance of mesentric vessels. Mesentric edema. No evidence of bowel obstruction. Whirling appearance of mesentric vessels is nonspecific. Prominent mesentric lymph nodes. Mesentric edema. (preop) * Patient has had 2 bloody bowel movements started 05/14/18. Patient's rectal: blood. She had reported abdominal pain has worsening since night of admission. Patient required emergent surgical intervention on 05/14/18 and transferred to ICU. Patient will need a second surgery likely tomorrow on 05/16/18. * Per operative note (05/14/18): Diagnostic laparoscopy, Exploratory laparotomy, Reduction of internal hernia, Lysis of adhesions, Drainage of abdominal collections, temporary abdominal closure, EGD * Ischemia of yenni limb, internal hernia. [place] drain stitched to distal common limb * ICU evaluation noted: Patient underwent emergency laparotomy for possible ischemic bowel. Patient had GI bleed. In the operating room patient underwent extensive exploratory laparotomy. Significant gangrene of the small bowel noted. Hernia was identified, which was reduced.After that the significant improvement in the vasculature noted. But there is still a segment of bowel not healthy (portion of the alimentary canal from prior gastric bypass surgery--> clarified with surgery resident), * Patient underwent surgery again on 05/16/18.Re-exploration, Small bowel resection of ileum, small bowel resection of Yenni limb with gastrojejunostomy, reversal of bypass, primary anastomosis of ileum-ileum, ileum-ileum, and ileum- jejunum, Gastrostomy tube in bypassed stomach, EGD * Per surgery, monitor for abdominal compartment syndrome * Recommend TPN. * Will need f/u surgery in 4-6 weeks to restore GI Status: Acute (3) Obesity (BMI 30-39.9) Assessment & Plan: * s/p gastric bypass surgery in 2013 * Operative note (2013): Yenni-en-Y gastric bypass surgery Status: Acute (4) Status post gastric bypass for obesity Assessment & Plan: * status post gastric bypass 2013 * Operative note (2013): Yenni-en-Y gastric bypass surgery Status: Acute (5) History of Asthma Assessment & Plan: * Patient not in acute exacerbation prior to OR * Atrovent Q6H (6) Leukocytosis Assessment & Plan: * Likely secondary to ischemic bowel secondary to small bowel obstruction () and had surgery (05/16/18)----- * Flagyl 500mg IVPB Q8H (active since 05/15/18) * Meropenem 1 gm IVPB Q8H (active 05/15/18) * Fluconazole IVPB * Peritoneal Fluid : Pseudomonas Aeruginosa sensitive to Meropenem * Wound Culture (05/23): pending * Blood culture (05/15/18): no growth after 5 days X2 * Blood culture (05/22/18): no growth after 5 days X2 * Urine culture: no growth (7) Diabetes Mellitus (Type 2); controlled Assessment & Plan: * From prior note: * Admittedly non-compliant - has not taken Januvia for one year * Accuchecks Q6H * Hypoglycemic protocol * HbA1c - 6.3 (03/10/17) * hgba1c: 02/15 * History of gastric bypass surgery (8) Hx of HTN (hypertension) Assessment & Plan: * Since Gastric Bypass has not taken meds (9) Hx of Hypothyroid Assessment & Plan: * From prior note: * Pt admits non-compliance (10) Hypercholesterolemia Assessment & Plan: * From prior note: * Pt not taking meds * LDL 138, HDL 67, Tchol 220, Trig 112 * History of gastric bypass surgery (11) Anxiety Assessment & Plan: * Patient was taking Xanax for anxiety noted in prior note (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 Assessment & Plan: * 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 and from my prior note from last hospitalization (13) Smoker Assessment & Plan: * From my prior note: 1ppd x 20 yrs, 1/2 ppd x 3 yrs * Nicoderm 1 patch TD patchy (14) Prophylactic measure Assessment & Plan: * Lovenox 40mg subqdaily for DVT ppx * Srivastava removed 8/10/18 * Wound vac removed 05/19/18 * on PPN on 05/23/18 * RIJ TLC 05/14/18 * NGT Tube * Srivastava * Off pressor * Off Paralytic * Protonix 40mg IV Q12H * Extubated 05/16/18 Status: Acute Disposition: f/u white count, f/u wound culture; surgery has gastrograffin study ; will need to confirm narcotic/ativan with pain management to prevent withdrawal given noted dependence.
--- NOTE | 2018-05-23 22:39 | PN ---
Copied To: Guero Rivera MD Attending MD: Guero Rivera MD DATE: 05/23/2018 SUBJECTIVE: The is asking for pain medication. She remains tachycardic. She says she used to be on anxiety medicines and pain medicine is needed at this time; however clinically, she is looking much better. Her one drain has been removed from the right abdomen. She says her throat is little better. They have started feedings via the PEG tube at this time. She has no cough but remains tachycardic. No fevers present. PHYSICAL EXAMINATION: VITAL SIGNS: T-max is 97.2, heart rate of 132, blood pressure is 128/96, respirations are 18. HEENT: Head is atraumatic, normocephalic. NECK: Supple. LUNGS: Clear. HEART: S1, S2 are regular. Tachycardia present. ABDOMEN: Has a surgical scar. There is a dressing on the PEG tube site which appears to have minimal drainage. Left side Sky is serosanguineous. The right JONAH drain has been removed. Wound has a dressing at this time. EXTREMITIES: Remain with no edema. IMPRESSION AND PLAN: My impression is that her white count is not decreasing, it is 20.3; hemoglobin 9; hematocrit 27; platelet count is 517. I ordered all the cultures yesterday, and they are pending. Urine culture is negative. Blood cultures x2 are negative. Wound culture is pending at this time which was done from the tube which was draining bile. Chest x-ray shows no active disease, so I am going to cut off vancomycin at this time as we were covering that, and we will start to taper the antibiotics as soon as the white count comes down, but at this time I have discontinued the vancomycin as x-ray has no infiltrate. She still is on total parenteral nutrition, so needs to be followed up with a repeat count tomorrow. Guero Rivera MD
[2018-05-24] MEDS: Ipratropium 0.02% Inhal Soln (0.5 mg/2.5 ml) UD IH SCH ×4 (01:08→20:31)
[2018-05-24] MEDS: Meropenem 1 GM in Sodium Chloride 0.9% 100 ML IVPB SCH ×3 (02:46→18:52)
[2018-05-24] MEDS: metroNIDAZOLE IV 500 mg/100 ml 500 MG/100 ML BAG IVPB SCH ×3 (03:52→20:55)
--- NOTE | 2018-05-24 04:52 | CP.CCUPN ---
CCU Subjective - Physician Review Subjective (Free Text): Jose Angel Cornelius DO PGY-1, ICU progress note for Dr. Thomas Pt was seen and examined at bedside. Pt is POD #8, and continues to have diffuse , nonspecific abdominal pain. Pt also continues to have report having loose bowel movements, green and liquid. Pt denies fever, chills, headache, weakness , dizziness, lightheadedness, chest pain, shortness of breath, n/v, hematemasis , hematochezia, melena. Pt is producing adequate amount of clear urine via ojeda catheter. Pt afebrile overnight. A 12-point ROS was reviewed and is otherwise unremarkable. CCU Objective - Vital Signs / Intake & Output Vital Signs (Last 4 hours): Vital Signs Temp Pulse Resp BP Pulse Ox 05/24/18 04:10 122 H 20 123/87 100 05/24/18 04:00 98.5 F 05/24/18 03:10 126 H 21 132/95 H 96 05/24/18 02:10 120 H 17 115/70 97 05/24/18 01:10 122 H 17 117/76 96 Intake and Output (Last 8hrs): Intake & Output 05/23/18 05/23/18 05/24/18 14:59 22:59 06:59 Intake Total 696 929 698 Output Total 1730 400 Balance -1034 529 698 Intake: Intake, IV Amount 686 899 678 Right Distal Port 336 399 378 Internal Jugular Right Proximal Port 350 400 Right Proximal Port 100 300 Internal Jugular Tube Feeding 10 30 20 Output: Drainage 430 Left Abdomen 30 Right Nare 400 Urine 1300 400 Urine, Voided 1300 400 Other: # Voids Urine, Voided 1 1 1 # Bowel Movements 1 1 1 - Physical Exam Head: Positive for: Atraumatic, Normocephalic Pupils: Positive for: PERRL Extroacular Muscles: Positive for: EOMI Conjunctiva: Positive for: Normal Mouth: Positive for: Moist Mucous Membranes Nose (External): Positive for: Other ((+) NGT on low int suction) Neck: Positive for: Normal Range of Motion, Other ((+) central line in right IJ) Respiratory/Chest: Positive for: Clear to Auscultation, Good Air Exchange. Negative for: Respiratory Distress, Wheezes, Rales Cardiovascular: Positive for: Normal S1, S2, Tachycardic Abdomen: Positive for: Tenderness (diffuse tenderness; soft abdomen), Other ( (+ ) large vertical incision with dressing in place, C/D/I; (+) left anali drain with scant amount of serosanguinous fluid, (+) g-tube for feeds). Negative for: Distention, Peritoneal Signs, Rebound Upper Extremity: Positive for: Normal Inspection, NORMAL PULSES Lower Extremity: Positive for: Normal Inspection, NORMAL PULSES. Negative for: CALF TENDERNESS Neurological: Positive for: GCS=15 Skin: Positive for: Warm, Dry Psychiatric: Positive for: Alert, Oriented x 3 - Medications Active Medications: Active Medications Generic Name Dose Route Start Last Admin Trade Name Freq PRN Reason Stop Dose Admin Dextrose 0 ml 05/15/18 08:36 05/16/18 23:40 Dextrose 50% Inj IV 50 ml STAT PRN Administration Hypoglycemia Protocol Protocol Dextrose 0 gm 05/15/18 08:36 Glutose 15 PO ONCE PRN Hypoglycemia Protocol Protocol Enoxaparin Sodium 40 mg 05/19/18 10:00 05/23/18 09:50 Lovenox SC 40 mg DAILY KATELYN Administration Glucagon 0 mg 05/15/18 08:36 Glucagen Diagnostic Kit IM STAT PRN Hypoglycemia Protocol Protocol Hydrocortisone 0 gm 05/19/18 10:00 05/23/18 18:46 Cortizone 1% Cream TOP 1 applic TID KATELYN Administration Hydromorphone HCl 1.5 mg 05/23/18 13:15 05/24/18 03:51 Dilaudid IVP 1.5 mg Q3 PRN Administration Pain, moderate (4-7) Dextrose 1,000 mls @ 0 mls/hr 05/15/18 08:36 Dextrose 5% In Water 1000 Ml IV .Q0M PRN Hypoglycemia Protocol Protocol Per Protocol Metronidazole 500 mg in 100 mls @ 100 mls/hr 05/15/18 12:00 05/24/18 03:52 Flagyl IVPB 100 mls/hr Q8H KATELYN Administration Protocol Meropenem 1 gm/ Sodium 100 mls @ 100 mls/hr 05/15/18 11:00 05/24/18 02:46 Chloride IVPB 100 mls/hr Q8H KATEYLN Administration Protocol Fluconazole 100 mg/ 50 mls @ 100 mls/hr 05/22/18 13:30 05/23/18 12:30 Miscellaneous IVPB 100 mls/hr Q24H KATELYN Administration Protocol Acetaminophen 100 mls @ 400 mls/hr 05/23/18 18:00 05/23/18 23:34 Ofirmev IV 05/25/18 18:01 400 mls/hr Q6 KATELYN Administration Potassium Chloride 20 meq/ 1,022.1 mls @ 63 mls/hr 05/23/18 18:00 05/23/18 18 :52 Insulin Human Regular 10 unit/ IV 05/24/18 10:00 63 mls/hr Heparin Sodium (Porcine) 1, .[id number] KATELYN Administration 000 units/ Chromium/Copper/ Manganese/Zinc 1 ml/ Multivitamins/Vitamin C 10 ml/ Amino Acids/Electrolytes/ Dextrose Potassium Chloride 20 meq/ 1,012.1 mls @ 63 mls/hr 05/24/18 10:00 Insulin Human Regular 10 unit/ IV 05/24/18 18:00 Heparin Sodium (Porcine) 1, .[id number] KATELYN 000 units/ Chromium/Copper/ Manganese/Zinc 1 ml/ Amino Acids/Electrolytes/Dextrose Insulin Human Regular 0 unit 05/20/18 00:00 05/23/18 23:51 Novolin R SC 1 unit Q6 KATELYN Administration Protocol Ipratropium [place] 0.5 mg 05/20/18 15:15 05/24/18 01:08 Atrovent IH Not Given RQ6 KATELYN Nicotine 1 patch 05/18/18 10:00 05/23/18 09:51 Nicoderm Cq TD 1 patch DAILY KATELYN Administration Pantoprazole Sodium 40 mg 05/23/18 10:00 05/23/18 09:51 Protonix Inj IVP 40 mg DAILY KATELYN Administration Saliva Substitute 0 ml 05/22/18 21:45 Mouth Kote 236 Ml MM Q6 PRN Dry mouth Vitamin A 1 ea 05/20/18 10:26 05/20/18 11:10 Vitamin A & D Oint Ud Foilpak TOP 1 ea Q8 PRN Administration dry lips - Patient Studies Lab Studies: Microbiology Studies 05/22/18 13:30 Blood Culture - Preliminary Blood-Thru Central Line NO GROWTH AFTER 24 HOURS 05/22/18 14:10 Blood Culture - Preliminary Blood-Venous NO GROWTH AFTER 24 HOURS 05/22/18 14:40 Blood Culture - Preliminary Blood-Venous NO GROWTH AFTER 24 HOURS 05/22/18 14:00 Blood Culture - Preliminary Blood-Thru Central Line NO GROWTH AFTER 24 HOURS 05/23/18 08:02 Gram Stain - Final Other: Please Indicate 05/22/18 15:33 Urine Culture - Final Urine,Clean Catch No Growth (<1,000 CFU/ML) Lab Studies 05/23/18 05/23/18 05/23/18 Range/Units 23:42 17:27 16:29 WBC (4.8-10.8) K/uL RBC (3.80-5.20) Mil/uL Hgb (11.0-16.0) g/dL Hct (34.0-47.0) % MCV (81.0-99.0) fL MCH (27.0-31.0) pg MCHC (33.0-37.0) g/dL RDW (11.5-14.5) % Plt Count (130-400) K/uL MPV (7.2-11.7) fL Neut % (Auto) (50.0-75.0) % Lymph % (Auto) (20.0-40.0) % Lane % (Auto) (0.0-10.0) % Eos % (Auto) (0.0-4.0) % Baso % (Auto) (0.0-2.0) % Neut # (Auto) (1.8-7.0) K/uL Lymph # (Auto) (1.0-4.3) K/uL Lane # (Auto) (0.0-0.8) K/uL Eos # (Auto) (0.0-0.7) K/uL Baso # (Auto) (0.0-0.2) K/uL PT (9.7-12.2) SECONDS INR APTT (21-34) SECONDS Sodium (132-148) mmol/L Potassium (3.6-5.2) mmol/L Chloride (98-107) mmol/L Carbon Dioxide (22-30) mmol/L Anion Gap (10-20) BUN (7-17) mg/dL Creatinine (0.7-1.2) mg/dL Est GFR ( Amer) Est GFR (Non-Af Amer) POC Glucose (mg/dL) 170 H 189 H (65-110) mg/dL Random Glucose (65-105) mg/dL Calcium (8.6-10.4) mg/dl Phosphorus (2.5-4.5) mg/dL Magnesium (1.6-2.3) mg/dL Total Bilirubin (0.2-1.3) mg/dL AST (14-36) U/L ALT (9-52) U/L Alkaline Phosphatase (38-126) U/L Total Protein (6.3-8.3) g/dL Albumin (3.5-5.0) g/dL Globulin (2.2-3.9) gm/dL Albumin/Globulin Ratio (1.0-2.1) Vancomycin Trough < 5.0 L (5.0-10.0) ug/mL 05/23/18 05/23/18 05/23/18 Range/Units 12:27 06:17 06:17 WBC (4.8-10.8) K/uL RBC (3.80-5.20) Mil/uL Hgb (11.0-16.0) g/dL Hct (34.0-47.0) % MCV (81.0-99.0) fL MCH (27.0-31.0) pg MCHC (33.0-37.0) g/dL RDW (11.5-14.5) % Plt Count (130-400) K/uL MPV (7.2-11.7) fL Neut % (Auto) (50.0-75.0) % Lymph % (Auto) (20.0-40.0) % Lane % (Auto) (0.0-10.0) % Eos % (Auto) (0.0-4.0) % Baso % (Auto) (0.0-2.0) % Neut # (Auto) (1.8-7.0) K/uL Lymph # (Auto) (1.0-4.3) K/uL Lane # (Auto) (0.0-0.8) K/uL Eos # (Auto) (0.0-0.7) K/uL Baso # (Auto) (0.0-0.2) K/uL PT 15.0 H (9.7-12.2) SECONDS INR 1.4 APTT 47 H D (21-34) SECONDS Sodium 141 (132-148) mmol/L Potassium 3.4 L (3.6-5.2) mmol/L Chloride 104 (98-107) mmol/L Carbon Dioxide 25 (22-30) mmol/L Anion Gap 16 (10-20) BUN 11 (7-17) mg/dL Creatinine 0.5 L (0.7-1.2) mg/dL Est GFR ( Amer) > 60 Est GFR (Non-Af Amer) > 60 POC Glucose (mg/dL) 183 H (65-110) mg/dL Random Glucose 179 H (65-105) mg/dL Calcium 8.0 L (8.6-10.4) mg/dl Phosphorus 3.6 (2.5-4.5) mg/dL Magnesium 2.0 (1.6-2.3) mg/dL Total Bilirubin 0.5 (0.2-1.3) mg/dL AST 15 (14-36) U/L ALT 42 (9-52) U/L Alkaline Phosphatase 205 H (38-126) U/L Total Protein 5.8 L (6.3-8.3) g/dL Albumin 2.8 L (3.5-5.0) g/dL Globulin 2.9 (2.2-3.9) gm/dL Albumin/Globulin Ratio 1.0 (1.0-2.1) Vancomycin Trough (5.0-10.0) ug/mL 05/23/18 05/23/18 05/23/18 Range/Units 06:17 05:31 05:29 WBC 20.3 H (4.8-10.8) K/uL RBC 3.13 L (3.80-5.20) Mil/uL Hgb 9.0 L (11.0-16.0) g/dL Hct 27.0 L (34.0-47.0) % MCV 86.4 (81.0-99.0) fL MCH 28.7 (27.0-31.0) pg MCHC 33.2 (33.0-37.0) g/dL RDW 16.7 H (11.5-14.5) % Plt Count 517 H (130-400) K/uL MPV 8.7 (7.2-11.7) fL Neut % (Auto) 80.1 H (50.0-75.0) % Lymph % (Auto) 12.0 L (20.0-40.0) % Lane % (Auto) 4.8 (0.0-10.0) % Eos % (Auto) 2.7 (0.0-4.0) % Baso % (Auto) 0.4 (0.0-2.0) % Neut # (Auto) 16.3 H (1.8-7.0) K/uL Lymph # (Auto) 2.5 (1.0-4.3) K/uL Lane # (Auto) 1.0 H (0.0-0.8) K/uL Eos # (Auto) 0.6 (0.0-0.7) K/uL Baso # (Auto) 0.1 (0.0-0.2) K/uL PT (9.7-12.2) SECONDS INR APTT (21-34) SECONDS Sodium (132-148) mmol/L Potassium (3.6-5.2) mmol/L Chloride (98-107) mmol/L Carbon Dioxide (22-30) mmol/L Anion Gap (10-20) BUN (7-17) mg/dL Creatinine (0.7-1.2) mg/dL Est GFR ( Amer) Est GFR (Non-Af Amer) POC Glucose (mg/dL) 211 H 251 H (65-110) mg/dL Random Glucose (65-105) mg/dL Calcium (8.6-10.4) mg/dl Phosphorus (2.5-4.5) mg/dL Magnesium (1.6-2.3) mg/dL Total Bilirubin (0.2-1.3) mg/dL AST (14-36) U/L ALT (9-52) U/L Alkaline Phosphatase (38-126) U/L Total Protein (6.3-8.3) g/dL Albumin (3.5-5.0) g/dL Globulin (2.2-3.9) gm/dL Albumin/Globulin Ratio (1.0-2.1) Vancomycin Trough (5.0-10.0) ug/mL 05/23/18 05/22/18 05/22/18 Range/Units 00:05 17:36 11:35 WBC (4.8-10.8) K/uL RBC (3.80-5.20) Mil/uL Hgb (11.0-16.0) g/dL Hct (34.0-47.0) % MCV (81.0-99.0) fL MCH (27.0-31.0) pg MCHC (33.0-37.0) g/dL RDW (11.5-14.5) % Plt Count (130-400) K/uL MPV (7.2-11.7) fL Neut % (Auto) (50.0-75.0) % Lymph % (Auto) (20.0-40.0) % Lane % (Auto) (0.0-10.0) % Eos % (Auto) (0.0-4.0) % Baso % (Auto) (0.0-2.0) % Neut # (Auto) (1.8-7.0) K/uL Lymph # (Auto) (1.0-4.3) K/uL Lane # (Auto) (0.0-0.8) K/uL Eos # (Auto) (0.0-0.7) K/uL Baso # (Auto) (0.0-0.2) K/uL PT (9.7-12.2) SECONDS INR APTT (21-34) SECONDS Sodium (132-148) mmol/L Potassium (3.6-5.2) mmol/L Chloride (98-107) mmol/L Carbon Dioxide (22-30) mmol/L Anion Gap (10-20) BUN (7-17) mg/dL Creatinine (0.7-1.2) mg/dL Est GFR ( Amer) Est GFR (Non-Af Amer) POC Glucose (mg/dL) 125 H 169 H 183 H (65-110) mg/dL Random Glucose (65-105) mg/dL Calcium (8.6-10.4) mg/dl Phosphorus (2.5-4.5) mg/dL Magnesium (1.6-2.3) mg/dL Total Bilirubin (0.2-1.3) mg/dL AST (14-36) U/L ALT (9-52) U/L Alkaline Phosphatase (38-126) U/L Total Protein (6.3-8.3) g/dL Albumin (3.5-5.0) g/dL Globulin (2.2-3.9) gm/dL Albumin/Globulin Ratio (1.0-2.1) Vancomycin Trough (5.0-10.0) ug/mL 05/22/18 05/21/18 05/21/18 Range/Units 06:16 23:59 17:41 WBC (4.8-10.8) K/uL RBC (3.80-5.20) Mil/uL Hgb (11.0-16.0) g/dL Hct (34.0-47.0) % MCV (81.0-99.0) fL MCH (27.0-31.0) pg MCHC (33.0-37.0) g/dL RDW (11.5-14.5) % Plt Count (130-400) K/uL MPV (7.2-11.7) fL Neut % (Auto) (50.0-75.0) % Lymph % (Auto) (20.0-40.0) % Lane % (Auto) (0.0-10.0) % Eos % (Auto) (0.0-4.0) % Baso % (Auto) (0.0-2.0) % Neut # (Auto) (1.8-7.0) K/uL Lymph # (Auto) (1.0-4.3) K/uL Lane # (Auto) (0.0-0.8) K/uL Eos # (Auto) (0.0-0.7) K/uL Baso # (Auto) (0.0-0.2) K/uL PT (9.7-12.2) SECONDS INR APTT (21-34) SECONDS Sodium (132-148) mmol/L Potassium (3.6-5.2) mmol/L Chloride (98-107) mmol/L Carbon Dioxide (22-30) mmol/L Anion Gap (10-20) BUN (7-17) mg/dL Creatinine (0.7-1.2) mg/dL Est GFR ( Amer) Est GFR (Non-Af Amer) POC Glucose (mg/dL) 169 H 180 H 149 H (65-110) mg/dL Random Glucose (65-105) mg/dL Calcium (8.6-10.4) mg/dl Phosphorus (2.5-4.5) mg/dL Magnesium (1.6-2.3) mg/dL Total Bilirubin (0.2-1.3) mg/dL AST (14-36) U/L ALT (9-52) U/L Alkaline Phosphatase (38-126) U/L Total Protein (6.3-8.3) g/dL Albumin (3.5-5.0) g/dL Globulin (2.2-3.9) gm/dL Albumin/Globulin Ratio (1.0-2.1) Vancomycin Trough (5.0-10.0) ug/mL 05/21/18 05/21/18 05/21/18 Range/Units 11:04 05:56 00:30 WBC (4.8-10.8) K/uL RBC (3.80-5.20) Mil/uL Hgb (11.0-16.0) g/dL Hct (34.0-47.0) % MCV (81.0-99.0) fL MCH (27.0-31.0) pg MCHC (33.0-37.0) g/dL RDW (11.5-14.5) % Plt Count (130-400) K/uL MPV (7.2-11.7) fL Neut % (Auto) (50.0-75.0) % Lymph % (Auto) (20.0-40.0) % Lane % (Auto) (0.0-10.0) % Eos % (Auto) (0.0-4.0) % Baso % (Auto) (0.0-2.0) % Neut # (Auto) (1.8-7.0) K/uL Lymph # (Auto) (1.0-4.3) K/uL Lane # (Auto) (0.0-0.8) K/uL Eos # (Auto) (0.0-0.7) K/uL Baso # (Auto) (0.0-0.2) K/uL PT (9.7-12.2) SECONDS INR APTT (21-34) SECONDS Sodium (132-148) mmol/L Potassium (3.6-5.2) mmol/L Chloride (98-107) mmol/L Carbon Dioxide (22-30) mmol/L Anion Gap (10-20) BUN (7-17) mg/dL Creatinine (0.7-1.2) mg/dL Est GFR ( Amer) Est GFR (Non-Af Amer) POC Glucose (mg/dL) 154 H 179 H 147 H (65-110) mg/dL Random Glucose (65-105) mg/dL Calcium (8.6-10.4) mg/dl Phosphorus (2.5-4.5) mg/dL Magnesium (1.6-2.3) mg/dL Total Bilirubin (0.2-1.3) mg/dL AST (14-36) U/L ALT (9-52) U/L Alkaline Phosphatase (38-126) U/L Total Protein (6.3-8.3) g/dL Albumin (3.5-5.0) g/dL Globulin (2.2-3.9) gm/dL Albumin/Globulin Ratio (1.0-2.1) Vancomycin Trough (5.0-10.0) ug/mL Laboratory Results - last 24 hr 05/21/18 05/21/18 05/21/18 00:30 05:56 11:04 WBC RBC Hgb Hct MCV MCH MCHC RDW Plt Count MPV Neut % (Auto) Lymph % (Auto) Lane % (Auto) Eos % (Auto) Baso % (Auto) Neut # (Auto) Lymph # (Auto) Lane # (Auto) Eos # (Auto) Baso # (Auto) PT INR APTT Sodium Potassium Chloride Carbon Dioxide Anion Gap BUN Creatinine Est GFR ( Amer) Est GFR (Non-Af Amer) POC Glucose (mg/dL) 147 H 179 H 154 H Random Glucose Calcium Phosphorus Magnesium Total Bilirubin AST ALT Alkaline Phosphatase Total Protein Albumin Globulin Albumin/Globulin Ratio Vancomycin Trough 05/21/18 05/21/18 05/22/18 17:41 23:59 06:16 WBC RBC Hgb Hct MCV MCH MCHC RDW Plt Count MPV Neut % (Auto) Lymph % (Auto) Lane % (Auto) Eos % (Auto) Baso % (Auto) Neut # (Auto) Lymph # (Auto) Lane # (Auto) Eos # (Auto) Baso # (Auto) PT INR APTT Sodium Potassium Chloride Carbon Dioxide Anion Gap BUN Creatinine Est GFR ( Amer) Est GFR (Non-Af Amer) POC Glucose (mg/dL) 149 H 180 H 169 H Random Glucose Calcium Phosphorus Magnesium Total Bilirubin AST ALT Alkaline Phosphatase Total Protein Albumin Globulin Albumin/Globulin Ratio Vancomycin Trough 05/22/18 05/22/18 05/23/18 11:35 17:36 00:05 WBC RBC Hgb Hct MCV MCH MCHC RDW Plt Count MPV Neut % (Auto) Lymph % (Auto) Lane % (Auto) Eos % (Auto) Baso % (Auto) Neut # (Auto) Lymph # (Auto) Lane # (Auto) Eos # (Auto) Baso # (Auto) PT INR APTT Sodium Potassium Chloride Carbon Dioxide Anion Gap BUN Creatinine Est GFR ( Amer) Est GFR (Non-Af Amer) POC Glucose (mg/dL) 183 H 169 H 125 H Random Glucose Calcium Phosphorus Magnesium Total Bilirubin AST ALT Alkaline Phosphatase Total Protein Albumin Globulin Albumin/Globulin Ratio Vancomycin Trough 05/23/18 05/23/18 05/23/18 05:29 05:31 06:17 WBC 20.3 H RBC 3.13 L Hgb 9.0 L Hct 27.0 L MCV 86.4 MCH 28.7 MCHC 33.2 RDW 16.7 H Plt Count 517 H MPV 8.7 Neut % (Auto) 80.1 H Lymph % (Auto) 12.[address] % (Auto) 4.8 Eos % (Auto) 2.7 Baso % (Auto) 0.4 Neut # (Auto) 16.3 H Lymph # (Auto) 2.5 Lane # (Auto) 1.0 H Eos # (Auto) 0.6 Baso # (Auto) 0.1 PT INR APTT Sodium Potassium Chloride Carbon Dioxide Anion Gap BUN Creatinine Est GFR ( Amer) Est GFR (Non-Af Amer) POC Glucose (mg/dL) 251 H 211 H Random Glucose Calcium Phosphorus Magnesium Total Bilirubin AST ALT Alkaline Phosphatase Total Protein Albumin Globulin Albumin/Globulin Ratio Vancomycin Trough 05/23/18 05/23/18 05/23/18 06:17 06:17 12:27 WBC RBC Hgb Hct MCV MCH MCHC RDW Plt Count MPV Neut % (Auto) Lymph % (Auto) Lane % (Auto) Eos % (Auto) Baso % (Auto) Neut # (Auto) Lymph # (Auto) Lane # (Auto) Eos # (Auto) Baso # (Auto) PT 15.0 H INR 1.4 APTT 47 H D Sodium 141 Potassium 3.4 L Chloride 104 Carbon Dioxide 25 Anion Gap 16 BUN 11 Creatinine 0.5 L Est GFR ( Amer) > 60 Est GFR (Non-Af Amer) > 60 POC Glucose (mg/dL) 183 H Random Glucose 179 H Calcium 8.0 L Phosphorus 3.6 Magnesium 2.0 Total Bilirubin 0.5 AST 15 ALT 42 Alkaline Phosphatase 205 H Total Protein 5.8 L Albumin 2.8 L Globulin 2.9 Albumin/Globulin Ratio 1.0 Vancomycin Trough 05/23/18 05/23/18 05/23/18 16:29 17:27 23:42 WBC RBC Hgb Hct MCV MCH MCHC RDW Plt Count MPV Neut % (Auto) Lymph % (Auto) Lane % (Auto) Eos % (Auto) Baso % (Auto) Neut # (Auto) Lymph # (Auto) Lane # (Auto) Eos # (Auto) Baso # (Auto) PT INR APTT Sodium Potassium Chloride Carbon Dioxide Anion Gap BUN Creatinine Est GFR ( Amer) Est GFR (Non-Af Amer) POC Glucose (mg/dL) 189 H 170 H Random Glucose Calcium Phosphorus Magnesium Total Bilirubin AST ALT Alkaline Phosphatase Total Protein Albumin Globulin Albumin/Globulin Ratio Vancomycin Trough < 5.0 L Fingerstick Blood Sugar Results: 170 Review of Systems - Review of Systems All systems: reviewed and no additional remarkable complaints except (as per HPI ) Critical Care Progress Note - Extremities/Vascular Insertion Site: Internal Jugular Vein - Prophylaxis GI Prophylaxis GI: PPI - Prophylaxis DVT Prophylaxis DVT: Lovenox - Nutrition Nutrition: Nutrition Category Date Time Status NPO Diet [DIET] Diets 05/14/18 Breakfast Active Assessment/Plan - Assessment and Plan (Free Text) Assessment: This is a 37 year old female with PMH of recurrent SBOs s/p gastric bypass (2013 ), HTN, HLD, DM2, obesity, gastritis, asthma who was BIBA to ED on 05/14/18 with complaints of 1 day history of severe abdominal pain associated with 3 episodes of NBNB emesis. Abd/pelv CT was positive for SBO, with small amount of free fluid in the pelvis, enteritis, mesenteric edema and internal hernia. Pt noted to have BRB HI, with hypotension (placed on levophed gtt) and was taken to the OR for emergency ex lap for possible bowel ischemia. In the OR, internal hernia was reduced, lysis of adhesions, and pt was noted to have mesenteric ischemia of yenni limb. One ANALI drain was placed into pelvis, and pt was brought to ICU with open surgical abdominal wound, intubation, checmical paralysis, and sedation. Pt has plans to return to OR on 05/16/18. On 05/15 POD#1, pt anemic (hgb 7.7) and received 2 units of FFP and 2 units of pRBCs with adequate response. Levophed was discontinuated on 05/15 at 1pm. On 05/16, pt returned to OR for re- exploration, Small bowel resection of ileum, small bowel resection of Yenni limb with gastrojejunostomy, reversal of bypass, primary anastomosis of ileum-ileum, ileum-ileum, and ileum-jejunum, Gastrostomy tube in bypassed stomach, EGD. Pt is in the ICU for monitoring s/p abdominal surgery. On 05/17, pt was placed on bpap, with lasix given, due to increased work of breathing, and increased pulmonary congestion on cxr. 05/20, Pt noted to have melanous bowel movement, with BRB on tissue after wiping. Pt was started on tube feeds on 05/21. Pt continues to be tachycardic, with abdominal pain, surgery has ordered a GI series. Pt continues to be managed in the ICU for post-op care. Plan: Neuro: - continue to monitor for mental status changes - pt is AAOx3 - analgesia with dilaudid - Nicotine patch QD for tobacco dependance Cardio: - maintain MAP > 65 mmHg Pulm: - maintain spo2 >92% - CXR (05/23) shows some improvement. - continue to encourage use of incentive spirometer - oral care - continue atrovent GI: - POD#10 s/p Exploratory laparotomy, Reduction of internal hernia, Lysis of adhesions, Drainage of abdominal collections, temporary abdominal closure ( fascia left open), EGD. - POD#8 s/p Re-exploration, Small bowel resection of ileum, small bowel resection of Yenni limb with gastrojejunostomy, reversal of bypass, primary anastomosis of ileum-ileum, ileum-ileum, and ileum-jejunum, Gastrostomy tube in bypassed stomach, EGD - large midline vertical incision, no signs of infection at this time - right anali drain, g-tube in place - Pt was started on TF over the weekend - TPN feeds will continue until pt is at goal TF - NPO; pt strictly informed to not drink or eat anything; saliva substitute - NGT on low int suction as per surgery - Transaminitis has resolved - protonix for pud ppx - continue OOB to chair via PT - GI series shows no evidence of postsurgical leak - f/u surgery recs Heme: - H/h stable - lovenox for vte ppx ID: - afebrile - leukocytosis is downtrending - continue vanco, merrem, flagyl, fluconazole as per ID - peritoneal fluid culture final shows P. aeruginosa (pt on merrem) - abdominal wound culture prelim shows gram positive cocci - blood cultures x2 final shows no growth - urine culture final shows no growth - f/u procalcitonin - f/u ID recs Renal: - maintain minimum of 0.5 mL/kg/hr - BUN/Cr is stable and wnl - maintain euvolemia - replete electrolytes as needed Endo: - maintain euglycemia - accucheck q6h - ISS low q6h Ppx: protonix for pud; lovenox/SCDs for vte ppx Dispo: Pt will remain in ICU Case was reviewed and discussed with attending physician, Dr. Thomas
[2018-05-24] MEDS: (Novolin R) Insulin Human Regular 100 units/ml vial SC SCH ×3 (05:44→18:51)
[2018-05-24 06:32] LABS: BASO # 0.1 K/uL (0.0-0.2); BASO % 0.3 % (0.0-2.0); EOS # 0.3 K/uL (0.0-0.7); EOS % 1.7 % (0.0-4.0); HEMOGLOBIN 8.4 g/dL (11.0-16.0); INR 1.5; LYMPH # 2.4 K/uL (1.0-4.3); LYMPH % 12.2 % (20.0-40.0); MEAN CELL VOLUME 86.9 fL (81.0-99.0); MEAN CORPUSCULAR HEMOGLOBIN 29.7 pg (27.0-31.0); MEAN CORPUSCULAR HGB CONC 34.2 g/dL (33.0-37.0); MEAN PLATELET VOLUME 8.4 fL (7.2-11.7); MONO # 1.1 K/uL (0.0-0.8); MONO % 5.5 % (0.0-10.0); NEUT # 15.6 K/uL (1.8-7.0); NEUT % 80.3 % (50.0-75.0); PROTHROMBIN TIME 15.9 SECONDS (9.7-12.2); RBC 2.83 Mil/uL (3.80-5.20); RED CELL DISTRIBUTION WIDTH 16.7 % (11.5-14.5); WHITE BLOOD COUNT 19.4 K/uL (4.8-10.8)
[2018-05-24 06:36] LABS: ALB/GLOB RATIO 0.8 (1.0-2.1); ALBUMIN 2.6 g/dL (3.5-5.0); ALT/SGPT 35 U/L (9-52); AST/SGOT 15 U/L (14-36); BLOOD UREA NITROGEN 12 mg/dL (7-17); CALCIUM 7.8 mg/dl (8.6-10.4); GFR NON-AFRICAN AMERICAN > 60
[2018-05-24] MEDS: Hydrocortisone 1% Cream (30 GM) TOP SCH ×3 (10:27→18:51)
[2018-05-24] MEDS: Enoxaparin 40 mg Syringe SC SCH (10:27)
--- NOTE | 2018-05-24 11:13 | CP.PCM.PN ---
Subjective - Date & Time of Evaluation Date of Evaluation: 05/24/18 Time of Evaluation: 07:00 - Subjective Subjective: GENERAL SURGERY PROGRESS NOTE FOR DR. ALAMO (covering for Dr. Haas) Patient seen and examined at bedside in ICU. No acute events overnight. She is feeling better today than on previous days. Denies nausea or vomiting. She had 4 mucousy BMs overnight. Overnight outputs: NG tube: 1050cc L Sky: 15cc serous Objective - Vital Signs/Intake and Output Vital Signs (last 24 hours): Temp Pulse Resp BP Pulse Ox 98.5 F 111 H 19 125/95 H 97 05/24/18 04:00 05/24/18 07:10 05/24/18 07:10 05/24/18 07:10 05/24/18 07:10 Intake and Output: 05/24/18 05/24/18 06:59 18:59 Intake Total 1405 73 Output Total 1305 Balance 1405 -1232 - Medications Medications: Current Medications Dextrose (Dextrose 50% Inj) 0 ml IV STAT PRN; Protocol PRN Reason: Hypoglycemia Protocol Last Admin: 05/16/18 23:40 Dose: 50 ml Dextrose (Glutose 15) 0 gm PO ONCE PRN; Protocol PRN Reason: Hypoglycemia Protocol Enoxaparin Sodium (Lovenox) 40 mg SC DAILY [facility] Last Admin: 05/24/18 10:27 Dose: 40 mg Glucagon (Glucagen Diagnostic Kit) 0 mg IM STAT PRN; Protocol PRN Reason: Hypoglycemia Protocol Hydrocortisone (Cortizone 1% Cream) 0 gm TOP TID [facility] Last Admin: 05/24/18 10:27 Dose: 1 applic Hydromorphone HCl (Dilaudid) 1.5 mg IVP Q3 PRN PRN Reason: Pain, moderate (4-7) Last Admin: 05/24/18 09:15 Dose: 1.5 mg Dextrose (Dextrose 5% In Water 1000 Ml) 1,000 mls @ 0 mls/hr IV .Q0M PRN; Protocol; Per Protocol PRN Reason: Hypoglycemia Protocol Metronidazole (Flagyl) 500 mg in 100 mls @ 100 mls/hr IVPB Q8H [facility]AT[facility]N PRN Reason: Protocol Last Admin: 05/24/18 03:52 Dose: 100 mls/hr Meropenem 1 gm/ Sodium (Chloride) 100 mls @ 100 mls/hr IVPB Q8H KAT[facility]N PRN Reason: Protocol Last Admin: 05/24/18 10:28 Dose: 100 mls/hr Fluconazole 100 mg/ (Miscellaneous) 50 mls @ 100 mls/hr IVPB Q24H KATELYN PRN Reason: Protocol Last Admin: 05/23/18 12:30 Dose: 100 mls/hr Acetaminophen (Ofirmev) 100 mls @ 400 mls/hr IV Q6 [facility] Stop: 05/25/18 18:01 Last Admin: 05/24/18 05:01 Dose: 400 mls/hr Potassium Chloride 20 meq/Insulin Human Regular 10 unit/Heparin Sodium (Porcine ) 1, 000 units/ Chromium/Copper/Manganese/Zinc 1 ml/ Amino Acids/Electrolytes/ Dextrose 1,012.1 mls @ 63 mls/hr IV .Q16H4M [facility] Stop: 05/24/18 18:00 Potassium Chloride 20 meq/Multivitamins/Vitamin C 10 ml/Chromium/Copper/ Manganese/Seleni/Zn 1 ml/ Insulin Human Regular 10 unit/ Heparin Sodium (Porcine ) 1,000 units/Amino Acids/Electrolytes/Dextrose 1,022.1 mls @ 63 mls/hr IV .[id number] ONE Stop: 05/25/18 10:13 Potassium Chloride 20 meq/Chromium/Copper/Manganese/Seleni/Zn 1 ml/ Insulin Human Regular 10 unit/ Heparin Sodium (Porcine) 1,000 units/Amino Acids/ Electrolytes/Dextrose 1,012.1 mls @ 63 mls/hr IV .Q16H4M [facility] Stop: 05/25/18 17:59 Fat Emulsion Intravenous (Intralipid 20%) 500 mls @ 42 mls/hr IV ONCE ONE Stop: 05/25/18 05:54 Insulin Human Regular (Novolin R) 0 unit SC Q6 [facility]N PRN Reason: Protocol Last Admin: 05/24/18 05:44 Dose: 1 unit Ipratropium [place] (Atrovent) 0.5 mg IH RQ6 [facility] Last Admin: 05/24/18 09:06 Dose: 0.5 mg Lorazepam (Ativan) 1 mg IVP ONCE PRN PRN Reason: Anxiety Nicotine (Nicoderm Cq) 1 patch TD DAILY [facility] Last Admin: 05/23/18 09:51 Dose: 1 patch Pantoprazole Sodium (Protonix Inj) 40 mg IVP DAILY [facility] Last Admin: 05/24/18 10:27 Dose: 40 mg Saliva Substitute (Mouth Kote 236 Ml) 0 ml MM Q6 PRN PRN Reason: Dry mouth Vitamin A (Vitamin A & D Oint Ud Foilpak) 1 ea TOP Q8 PRN PRN Reason: dry lips Last Admin: 05/20/18 11:10 Dose: 1 ea - Labs Labs: 05/24/18 06:07 05/24/18 06:07 PT 15.9 SECONDS (9.7-12.2) H 05/24/18 06:07 INR 1.5 05/24/18 06:07 APTT 32 SECONDS (21-34) D 05/24/18 06:07 - Constitutional Appears: Non-toxic, No Acute Distress - Head Exam Head Exam: ATRAUMATIC, NORMAL INSPECTION - Eye Exam Eye Exam: EOMI, Normal appearance - Respiratory Exam Respiratory Exam: NORMAL BREATHING PATTERN. absent: Respiratory Distress - Cardiovascular Exam Cardiovascular Exam: Tachycardia - GI/Abdominal Exam GI & Abdominal Exam: Soft, Tenderness (luana-incisional tenderness). absent: Distended, Firm, Guarding, Rigid, Rebound Additional comments: Gastrostomy tube in place Left sky with 15cc serous - Neurological Exam Neurological Exam: Alert, Awake, Oriented x3 - Psychiatric Exam Psychiatric exam: Normal Affect, Normal Mood - Skin Skin Exam: Dry, Normal Color, Warm Assessment and Plan - Assessment and Plan (Free Text) Assessment: 37yo F with PMHx of yenni-en-Y gastric bypass in 2013 now with bowel ischemia secondary to internal hernia. POD#10 s/p Exploratory laparotomy, Reduction of internal hernia, DANNI, Drainage of abdominal collections, temporary abdominal closure (fascia left open), EGD. POD#7 s/p Re-exploration, Small bowel resection of ileum, small bowel resection of Yenni limb including previous gastrojejunostomy, reversal of bypass, primary anastomosis of ileum-ileum, ileum-ileum, and ileum-jejunum, Gastrostomy tube in bypassed stomach, EGD Outputs: NG tube in gastric pouch: 1050 Left Sky: 15cc serous from 7p-7a - Continue strict NPO w/ NG tube to low intermittent suction in gastric pouch - On tube feeds @10cc via Gastrostomy tube - Ordered gastrograffin study to evaluate stomach/small bowel prior to increasing tube feed rate - On TPN by ICU team - Start fabi for additional pain control - DVT Prophylaxis: Lovenox - Will need surgery in 4 weeks to restore GI continuity - Dressing changed, packed in between sutures - Encouraged OOB, ambulation and IS use. Stressed importance to patient on OOB to chair - Continue PT - Discussed plan with Dr. Mack Dailey PGY-4
--- NOTE | 2018-05-24 11:50 | RAD ---
Chest x-ray single frontal view History: Follow-up. Comparison: 05/23/2018 Findings: Rounded nodule/nodular density at the left lung base. Lines and tubes in stable position. Venous congestion. Linear atelectasis at the right lung base. Degenerative changes in the spine and shoulders. Impression: Rounded nodule/nodular density at the left lung base. Lines and tubes in stable position. Venous congestion. Linear atelectasis at the right lung base. Degenerative changes in the spine and shoulders.
[2018-05-24] MEDS ORDERED: Iohexol 240 200 ML ONE (12:08)
[2018-05-24] MEDS: Fluconazole IV 200mg/100 ml NS 100 MG in Premixed IV 1 EA IVPB SCH (14:13)
--- NOTE | 2018-05-24 16:23 | RAD ---
Date of service: 05/24/2018 PROCEDURE: Upper GI with small bowel series. HISTORY: Status post gastric bypass revision. Rule out leak. COMPARISON: CT dated 05/21/2018 TECHNIQUE: Fluoroscopic evaluation of the esophagus, stomach, and small bowel was performed following administration of oral contrast. FINDINGS: Study was limited. Single contrast Gastrografin was administered through the gastrostomy tube. Contrast filled the stomach. No evidence of postsurgical leak. Subsequently, contrast extended into the small bowel without evidence of gross obstruction. IMPRESSION: No evidence of postsurgical leak.
--- NOTE | 2018-05-24 17:38 | CP.PCM.PN ---
Subjective - Date & Time of Evaluation Date of Evaluation: 05/24/18 Time of Evaluation: 16:00 - Subjective Subjective: Medical attending Note; Patient seen and examined at bedside. Patient underwent gastrograffin study and just came back. Patient denies headache, denies chest pain, denies palpitations, denies abdominal pain, reports she has been having the "runs" on the bedpain because she feels like she has to go. Patient reports she feels very dry in her mouth and feels like she is breaking out. I have ask the icu resident to f/u with patient's pain management doctor to see what regimen she is on as outpatient to prevent withdrawal. Patient noted to have some bright blood in the NGT, i have spoken with the surgery resident in regards to eval. Objective - Vital Signs/Intake and Output Vital Signs (last 24 hours): Temp Pulse Resp BP Pulse Ox 98.5 F 142 H 23 135/90 97 05/24/18 04:00 05/24/18 14:23 05/24/18 14:23 05/24/18 14:23 05/24/18 14:23 Intake and Output: 05/24/18 05/24/18 06:59 18:59 Intake Total 1405 901 Output Total 1809 Balance 1405 -908 - Medications Medications: Current Medications Dextrose (Dextrose 50% Inj) 0 ml IV STAT PRN; Protocol PRN Reason: Hypoglycemia Protocol Last Admin: 05/16/18 23:40 Dose: 50 ml Dextrose (Glutose 15) 0 gm PO ONCE PRN; Protocol PRN Reason: Hypoglycemia Protocol Enoxaparin Sodium (Lovenox) 40 mg SC DAILY [facility] Last Admin: 05/24/18 10:27 Dose: 40 mg Glucagon (Glucagen Diagnostic Kit) 0 mg IM STAT PRN; Protocol PRN Reason: Hypoglycemia Protocol Hydrocortisone (Cortizone 1% Cream) 0 gm TOP TID [facility] Last Admin: 05/24/18 14:16 Dose: 1 applic Hydromorphone HCl (Dilaudid) 1.5 mg IVP Q3 PRN PRN Reason: Pain, SEVERE (8-10) Last Admin: 05/24/18 15:44 Dose: 1.5 mg Dextrose (Dextrose 5% In Water 1000 Ml) 1,000 mls @ 0 mls/hr IV .Q0M PRN; Protocol; Per Protocol PRN Reason: Hypoglycemia Protocol Metronidazole (Flagyl) 500 mg in 100 mls @ 100 mls/hr IVPB Q8H [facility]N PRN Reason: Protocol Last Admin: 05/24/18 13:52 Dose: 100 mls/hr Meropenem 1 gm/ Sodium (Chloride) 100 mls @ 100 mls/hr IVPB Q8H [facility]AT[facility]N PRN Reason: Protocol Last Admin: 05/24/18 10:28 Dose: 100 mls/hr Fluconazole 100 mg/ (Miscellaneous) 50 mls @ 100 mls/hr IVPB Q24H [facility]ATELYN PRN Reason: Protocol Last Admin: 05/24/18 14:13 Dose: 100 mls/hr Acetaminophen (Ofirmev) 100 mls @ 400 mls/hr IV Q6 [facility] Stop: 05/25/18 18:01 Last Admin: 05/24/18 14:26 Dose: 400 mls/hr Potassium Chloride 20 meq/Insulin Human Regular 10 unit/Heparin Sodium (Porcine ) 1, 000 units/ Chromium/Copper/Manganese/Zinc 1 ml/ Amino Acids/Electrolytes/ Dextrose 1,012.1 mls @ 63 mls/hr IV .Q16H4M [facility] Stop: 05/24/18 18:00 Last Admin: 05/24/18 11:25 Dose: 63 mls/hr Potassium Chloride 20 meq/Multivitamins/Vitamin C 10 ml/Chromium/Copper/ Manganese/Seleni/Zn 1 ml/ Insulin Human Regular 10 unit/ Heparin Sodium (Porcine ) 1,000 units/Amino Acids/Electrolytes/Dextrose 1,022.1 mls @ 63 mls/hr IV .[id number] ONE Stop: 05/25/18 10:13 Potassium Chloride 20 meq/Chromium/Copper/Manganese/Seleni/Zn 1 ml/ Insulin Human Regular 10 unit/ Heparin Sodium (Porcine) 1,000 units/Amino Acids/ Electrolytes/Dextrose 1,012.1 mls @ 63 mls/hr IV .Q16H4M [facility] Stop: 05/25/18 17:59 Fat Emulsion Intravenous (Intralipid 20%) 500 mls @ 42 mls/hr IV ONCE ONE Stop: 05/25/18 05:54 Insulin Human Regular (Novolin R) 0 unit SC Q6 [facility] PRN Reason: Protocol Last Admin: 05/24/18 14:16 Dose: 1 unit Ipratropium [place] (Atrovent) 0.5 mg IH RQ6 [facility] Last Admin: 05/24/18 14:12 Dose: 0.5 mg Lorazepam (Ativan) 1 mg IVP ONCE PRN PRN Reason: Anxiety Last Admin: 05/24/18 11:27 Dose: 1 mg Nicotine (Nicoderm Cq) 1 patch TD DAILY [facility] Last Admin: 05/24/18 14:14 Dose: 1 patch Pantoprazole Sodium (Protonix Inj) 40 mg IVP DAILY [facility] Last Admin: 05/24/18 10:27 Dose: 40 mg Saliva Substitute (Mouth Kote 236 Ml) 0 ml MM Q6 PRN PRN Reason: Dry mouth Vitamin A (Vitamin A & D Oint Ud Foilpak) 1 ea TOP Q8 PRN PRN Reason: dry lips Last Admin: 05/20/18 11:10 Dose: 1 ea - Labs Labs: 05/24/18 06:07 05/24/18 06:07 PT 15.9 SECONDS (9.7-12.2) H 05/24/18 06:07 INR 1.5 05/24/18 06:07 APTT 32 SECONDS (21-34) D 05/24/18 06:07 - Constitutional Appears: Non-toxic, No Acute Distress - Head Exam Head Exam: NORMAL INSPECTION Additional comments: +NGT tube: streakings of bright red blood - Eye Exam Eye Exam: EOMI - ENT Exam ENT Exam: Mucous Membranes Moist - Respiratory Exam Respiratory Exam: Decreased Breath Sounds, NORMAL BREATHING PATTERN - Cardiovascular Exam Cardiovascular Exam: Tachycardia, +S1, +S2 - GI/Abdominal Exam GI & Abdominal Exam: Soft, Hypoactive Bowel Sounds Additional comments: no rebound, no guarding, left min serosagunious gastrostomy tube present - Extremities Exam Additional comments: scds b/l - Neurological Exam Neurological Exam: Alert, Awake, Oriented x3 - Psychiatric Exam Psychiatric exam: Normal Affect, Normal Mood - Skin Skin Exam: Dry, Pallor, Warm Assessment and Plan (1) Ischemic bowel disease Status: Acute (2) Obesity (BMI 30-39.9) Status: Acute (3) Status post gastric bypass for obesity Status: Resolved (4) Small bowel obstruction Status: Acute (5) Prophylactic measure Status: Acute Attending/Attestation - Attestation I have personally seen and examined this patient.: Yes I have fully participated in the care of the patient.: Yes I have reviewed all pertinent clinical information, including history, physical exam and plan: Yes Notes (Text): (1) Ischemic bowel disease Assessment & Plan: * Dr. Harley (surgery) on the case-->help appreciated * Dr. Giron covering. * Dr. Samara Denise (Surgery) on the case-->help appreciated * Preoperative/intraoperative/postoperative management per surgery * Dr. Alvarado (GI) on the case-->help appreciated * Dr. Rivera (ID) on the case-->help appreciated * Chest xray (05/14/18): no infiltrate, pleural effusion, or pneumothorax b/l. Diminished inspiratory volume question. No acute cardiovascular disease. * Lactic: 3.6 (prior OR)-->2.4 (post OR)-->2.3-->1.5-->1.6-->0.9 * Patient has had 2 bloody bowel movements started 05/14/18. Patient's rectal: blood. She had reported abdominal pain has worsening since night of admission. Patient required emergent surgical intervention on 05/14/18 and transferred to ICU. Patient will need a second surgery likely tomorrow on 05/16/18. * Per operative note (05/14/18): Diagnostic laparoscopy, Exploratory laparotomy, Reduction of internal hernia, Lysis of adhesions, Drainage of abdominal collections, temporary abdominal closure, EGD * Ischemia of yenni limb, internal hernia. Naveed drain stitched to distal common limb * ICU evaluation noted: Patient underwent emergency laparotomy for possible ischemic bowel. Patient had GI bleed. In the operating room patient underwent extensive exploratory laparotomy. Significant gangrene of the small bowel noted. Hernia was identified, which was reduced.After that the significant improvement in the vasculature noted. * Patient underwent surgery again on 05/16/18.Re-exploration, Small bowel resection of ileum, small bowel resection of Yenni limb with gastrojejunostomy, reversal of bypass, primary anastomosis of ileum-ileum, ileum-ileum, and ileum- jejunum, Gastrostomy tube in bypassed stomach, EGD * Per surgery, monitor for abdominal compartment syndrome * Surgery has recommended for gastrograffin study to eval stomac/small bowel prior to increase feeding tube * Dressing changed, packed in between sutures * Orimev added by surgery for pain control * Will need f/u surgery in 4-6 weeks to restore GI * Patient extubated 05/16/18. Main complaint is abdominal pain, however she is quite comfortable compared to when I met her the day she required emergent surgery. * Drains included: NGT Tube, gastrostomy tube, left nlake; right min was removed 05/23/18 * GI series w/ small bowel: no evidence of postsurgical leak * IV abx: * Flagyl 500mg IVPB Q8H (active since 05/15/18) * Meropenem 1 gm IVPB Q8H (active 05/15/18) * Cultures: * Peritoneal Fluid : Pseudomonas Aeruginosa sensitive to Meropenem * Wound Culture (05/23): gram positive cocci * Blood culture (05/15/18): no growth after 5 days X2 * Blood culture (05/22/18): no growth after 5 days X2 * Urine culture: no growth Status: Acute (2) Small bowel obstruction Assessment & Plan: * Secondary to hernia * CT abdomen/Pelvis (05/13/18): Writhing appearance of mesentric vessels. Mesentric edema. No evidence of bowel obstruction. Whirling appearance of mesentric vessels is nonspecific. Prominent mesentric lymph nodes. Mesentric edema. (preop) * Patient has had 2 bloody bowel movements started 05/14/18. Patient's rectal: blood. She had reported abdominal pain has worsening since night of admission. Patient required emergent surgical intervention on 05/14/18 and transferred to ICU. Patient will need a second surgery likely tomorrow on 05/16/18. * Per operative note (05/14/18): Diagnostic laparoscopy, Exploratory laparotomy, Reduction of internal hernia, Lysis of adhesions, Drainage of abdominal collections, temporary abdominal closure, EGD * Ischemia of yenni limb, internal hernia. Naveed drain stitched to distal common limb * ICU evaluation noted: Patient underwent emergency laparotomy for possible ischemic bowel. Patient had GI bleed. In the operating room patient underwent extensive exploratory laparotomy. Significant gangrene of the small bowel noted. Hernia was identified, which was reduced.After that the significant improvement in the vasculature noted. But there is still a segment of bowel not healthy (portion of the alimentary canal from prior gastric bypass surgery--> clarified with surgery resident), * Patient underwent surgery again on 05/16/18.Re-exploration, Small bowel resection of ileum, small bowel resection of Yenni limb with gastrojejunostomy, reversal of bypass, primary anastomosis of ileum-ileum, ileum-ileum, and ileum- jejunum, Gastrostomy tube in bypassed stomach, EGD * Per surgery, monitor for abdominal compartment syndrome * Recommend TPN. * Will need f/u surgery in 4-6 weeks to restore GI * GI series w/ small bowel: no evidence of postsurgical leak Status: Acute (3) Obesity (BMI 30-39.9) Assessment & Plan: * s/p gastric bypass surgery in 2013 * Operative note (2013): Yenni-en-Y gastric bypass surgery Status: Acute (4) Status post gastric bypass for obesity Assessment & Plan: * status post gastric bypass 2013 * Operative note (2013): Yenni-en-Y gastric bypass surgery Status: Acute (5) History of Asthma Assessment & Plan: * Patient not in acute exacerbation prior to OR * Atrovent Q6H (6) Leukocytosis Assessment & Plan: * Likely secondary to ischemic bowel secondary to small bowel obstruction () and had surgery (05/16/18)----- * Flagyl 500mg IVPB Q8H (active since 05/15/18) * Meropenem 1 gm IVPB Q8H (active 05/15/18) * Fluconazole IVPB * Peritoneal Fluid : Pseudomonas Aeruginosa sensitive to Meropenem * Wound Culture (05/23): * Blood culture (05/15/18): no growth after 5 days X2 * Blood culture (05/22/18): no growth after 5 days X2 * Urine culture: no growth * procalcitonin: 0.44 (7) Diabetes Mellitus (Type 2); controlled Assessment & Plan: * From prior note: * Admittedly non-compliant - has not taken Januvia for one year * Accuchecks Q6H * Hypoglycemic protocol * HbA1c - 6.3 (03/10/17) * hgba1c: 02/15 * History of gastric bypass surgery (8) Hx of HTN (hypertension) Assessment & Plan: * Since Gastric Bypass has not taken meds (9) Hx of Hypothyroid Assessment & Plan: * From prior note: * Pt admits non-compliance (10) Hypercholesterolemia Assessment & Plan: * From prior note: * Pt not taking meds * LDL 138, HDL 67, Tchol 220, Trig 112 * History of gastric bypass surgery (11) Anxiety Assessment & Plan: * Patient was taking Xanax for anxiety noted in prior note (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 Assessment & Plan: * 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 and from my prior note from last hospitalization (13) Smoker Assessment & Plan: * From my prior note: 1ppd x 20 yrs, 1/2 ppd x 3 yrs * Nicoderm 1 patch TD patchy (14) Prophylactic measure Assessment & Plan: * Lovenox 40mg subqdaily for DVT ppx * Srivastava removed 05/20/18 * Wound vac removed 05/19/18 * on PPN on 05/23/18 * RIJ TLC 05/14/18 * NGT Tube * Srivastava * Off pressor * Off Paralytic * Protonix 40mg IV Q12H * Extubated 05/16/18 Status: Acute Disposition: f/u white count, f/u wound culture: gram positive cocci-->discussed with ID, awaiting final cultures patient underwent GI series w/ small bowel: no evidence of postsurgical leak
[2018-05-24] MEDS ORDERED: Fat Emulsion 20% IV 500 ML IV ONE (18:00)
[2018-05-24] MEDS ORDERED: TPN IV ONE (18:00)
--- NOTE | 2018-05-24 22:55 | CP.PCM.PN ---
Subjective - Date & Time of Evaluation Date of Evaluation: 05/24/18 Time of Evaluation: 18:00 - Subjective Subjective: dictated Objective - Vital Signs/Intake and Output Vital Signs (last 24 hours): Temp Pulse Resp BP Pulse Ox 97.7 F 131 H 17 136/92 H 96 05/24/18 16:00 05/24/18 19:00 05/24/18 19:00 05/24/18 18:58 05/24/18 19:00 Intake and Output: 05/24/18 05/25/18 18:59 06:59 Intake Total 1057 216 Output Total 2059 10 Balance -1002 206 - Medications Medications: Current Medications Dextrose (Dextrose 50% Inj) 0 ml IV STAT PRN; Protocol PRN Reason: Hypoglycemia Protocol Last Admin: 05/16/18 23:40 Dose: 50 ml Dextrose (Glutose 15) 0 gm PO ONCE PRN; Protocol PRN Reason: Hypoglycemia Protocol Enoxaparin Sodium (Lovenox) 40 mg SC DAILY [facility] Last Admin: 05/24/18 10:27 Dose: 40 mg Glucagon (Glucagen Diagnostic Kit) 0 mg IM STAT PRN; Protocol PRN Reason: Hypoglycemia Protocol Hydrocortisone (Cortizone 1% Cream) 0 gm TOP TID [facility] Last Admin: 05/24/18 18:51 Dose: 1 applic Hydromorphone HCl (Dilaudid) 1.5 mg IVP Q3 PRN PRN Reason: Pain, SEVERE (8-10) Last Admin: 05/24/18 22:01 Dose: 1.5 mg Dextrose (Dextrose 5% In Water 1000 Ml) 1,000 mls @ 0 mls/hr IV .Q0M PRN; Protocol; Per Protocol PRN Reason: Hypoglycemia Protocol Metronidazole (Flagyl) 500 mg in 100 mls @ 100 mls/hr IVPB Q8H KAT[facility]N PRN Reason: Protocol Last Admin: 05/24/18 20:55 Dose: 100 mls/hr Meropenem 1 gm/ Sodium (Chloride) 100 mls @ 100 mls/hr IVPB Q8H KATELYN PRN Reason: Protocol Last Admin: 05/24/18 18:52 Dose: 100 mls/hr Fluconazole 100 mg/ (Miscellaneous) 50 mls @ 100 mls/hr IVPB Q24H KATELYN PRN Reason: Protocol Last Admin: 05/24/18 14:13 Dose: 100 mls/hr Potassium Chloride 20 meq/Multivitamins/Vitamin C 10 ml/Chromium/Copper/ Manganese/Seleni/Zn 1 ml/ Insulin Human Regular 10 unit/ Heparin Sodium (Porcine ) 1,000 units/Amino Acids/Electrolytes/Dextrose 1,022.1 mls @ 63 mls/hr IV .[id number] ONE Stop: 05/25/18 10:13 Last Admin: 05/24/18 18:25 Dose: 63 mls/hr Potassium Chloride 20 meq/Chromium/Copper/Manganese/Seleni/Zn 1 ml/ Insulin Human Regular 10 unit/ Heparin Sodium (Porcine) 1,000 units/Amino Acids/ Electrolytes/Dextrose 1,012.1 mls @ 63 mls/hr IV .Q16H4M [facility] Stop: 05/25/18 17:59 Fat Emulsion Intravenous (Intralipid 20%) 500 mls @ 42 mls/hr IV ONCE ONE Stop: 05/25/18 05:54 Last Admin: 05/24/18 18:24 Dose: 42 mls/hr Acetaminophen (Ofirmev) 100 mls @ 400 mls/hr IV Q6H [facility] Stop: 05/25/18 20:31 Last Admin: 05/24/18 20:55 Dose: 400 mls/hr Insulin Human Regular (Novolin R) 0 unit SC Q6 [facility]AT[facility]N PRN Reason: Protocol Last Admin: 05/24/18 18:51 Dose: 1 unit Ipratropium [place] (Atrovent) 0.5 mg IH RQ6 [facility] Last Admin: 05/24/18 20:31 Dose: 0.5 mg Lorazepam (Ativan) 1 mg IVP ONCE PRN PRN Reason: Anxiety Last Admin: 05/24/18 11:27 Dose: 1 mg Nicotine (Nicoderm Cq) 1 patch TD DAILY [facility] Last Admin: 05/24/18 14:14 Dose: 1 patch Pantoprazole Sodium (Protonix Inj) 40 mg IVP DAILY [facility] Last Admin: 05/24/18 10:27 Dose: 40 mg Saliva Substitute (Mouth Kote 236 Ml) 0 ml MM Q6 PRN PRN Reason: Dry mouth Vitamin A (Vitamin A & D Oint Ud Foilpak) 1 ea TOP Q8 PRN PRN Reason: dry lips Last Admin: 05/20/18 11:10 Dose: 1 ea - Labs Labs: 05/24/18 06:07 05/24/18 06:07 PT 15.9 SECONDS (9.7-12.2) H 05/24/18 06:07 INR 1.5 05/24/18 06:07 APTT 32 SECONDS (21-34) D 05/24/18 06:07
[2018-05-25] MEDS: Ipratropium 0.02% Inhal Soln (0.5 mg/2.5 ml) UD IH SCH ×5 (00:54→20:19)
[2018-05-25] MEDS: (Novolin R) Insulin Human Regular 100 units/ml vial SC SCH ×4 (01:37→18:14)
[2018-05-25] MEDS: Meropenem 1 GM in Sodium Chloride 0.9% 100 ML IVPB SCH ×3 (03:40→20:00)
--- NOTE | 2018-05-25 04:03 | PN ---
Copied To: Guero Rivera MD Attending MD: Guero Rivera MD DATE: 05/24/2018 SUBJECTIVE: The patient was seen today. She seemed comfortable but she still has an NG tube for suction, and she is getting feedings through the PEG tube in the belly, and there are no fevers, no chills. She has no other complaints except for abdominal pain, nonspecific, and she remains little tachycardic as she suffers from anxiety disorder, has been on pain medications and on opioids in the past. OBJECTIVE: GENERAL: She is awake and alert, gives a smile. VITAL SIGNS: She is afebrile, temperature 97.7, heart rate varies between 120s and 130s. NECK: Supple. LUNGS: Clear. HEART: S1 is tachycardic. ABDOMEN: The tube where the feeding is going from, there was some discharge from there which we are waiting to be finalized. Otherwise, the belly looks better. EXTREMITIES: Have no edema. White count is 19.4 today, hemoglobin 8.4, hematocrit 24.6, platelet count is 581, neutrophils are 80.3, and lymphs are 12.2. INR is 1.5. Micro osorio, there is only one culture positive which is on PEG side, and we will look into that, and the attending told me that they did a GI procedure to look for a leak. Radiological procedure: She has had a previous bypass, and now this ischemic bowels, and the upper GI with small-bowel series study was limited and contrast filled the stomach. No evidence of postsurgical leak, subsequently contrast extending into the small bowel without evidence of gross obstruction, maybe interesting to see this. So at this time, I am hoping that once this culture report comes by, white count will decrease, and I can probably get her off the antibiotics. Guero Rivera MD
[2018-05-25] MEDS: metroNIDAZOLE IV 500 mg/100 ml 500 MG/100 ML BAG IVPB SCH ×3 (05:00→21:00)
[2018-05-25 06:33] LABS: BASO # 0.1 K/uL (0.0-0.2); BASO % 0.6 % (0.0-2.0); EOS # 0.6 K/uL (0.0-0.7); EOS % 2.9 % (0.0-4.0); HEMOGLOBIN 8.4 g/dL (11.0-16.0); LYMPH # 2.5 K/uL (1.0-4.3); LYMPH % 11.6 % (20.0-40.0); MEAN CELL VOLUME 86.9 fL (81.0-99.0); MEAN CORPUSCULAR HEMOGLOBIN 29.3 pg (27.0-31.0); MEAN CORPUSCULAR HGB CONC 33.7 g/dL (33.0-37.0); MEAN PLATELET VOLUME 8.6 fL (7.2-11.7); MONO # 1.1 K/uL (0.0-0.8); MONO % 5.1 % (0.0-10.0); NEUT # 17.4 K/uL (1.8-7.0); NEUT % 79.8 % (50.0-75.0); RBC 2.87 Mil/uL (3.80-5.20); RED CELL DISTRIBUTION WIDTH 16.8 % (11.5-14.5); WHITE BLOOD COUNT 21.8 K/uL (4.8-10.8)
[2018-05-25 06:39] LABS: INR 1.4; PROTHROMBIN TIME 15.2 SECONDS (9.7-12.2)
[2018-05-25 06:51] LABS: ALB/GLOB RATIO 0.9 (1.0-2.1); ALBUMIN 2.6 g/dL (3.5-5.0); ALT/SGPT 26 U/L (9-52); AST/SGOT 23 U/L (14-36); BLOOD UREA NITROGEN 11 mg/dL (7-17); CALCIUM 7.7 mg/dl (8.6-10.4); GFR NON-AFRICAN AMERICAN > 60
[2018-05-25] MEDS ORDERED: Potassium Chloride 20 mEq/15 ml LIQ UD PEG ONE (08:15)
--- NOTE | 2018-05-25 08:30 | CP.PCM.PN ---
Subjective - Date & Time of Evaluation Date of Evaluation: 05/25/18 Time of Evaluation: 08:30 - Subjective Subjective: Hospitalist Progress Note Patient was seen and examined at 8:30 AM 05/25/18 ICU Bed #1 Upon FULL ROS: Her menses stopped on some time on Wednesday05/23/18 Complains of itchy rash right inner upper arm from where blood pressure cuff was Complains of mass left upper arm anterior mid biceps area Complain of anxiousness with all that is going on with her Complains of abundant abdominal pain diffusely Multiple watery bowel movements throughout the day General: AAOx3, Does not appear to be in any level of pain at the time of my exam and again was noted to be resting comfortably prior to me entering her room and having a normal conversation with me throughout the time of my exam HEENT: PERRLA, NCA, Nasal Turbinates and oral mucosa are dry, NO Pharyneal erythema/exudate, NO thyromegly, NO lympadenopathy Cardio: NS1 and NS2, NO M/R/G Respiratory: Few scattered course breath sounds with expiration diffusely GI: 1 Sky Drain on Left and G Tubes in place, Soft, ND, BSx4 are decreased, Patient expresses tenderness to palpation in all 4 quadrants with NO guarding/ rebound tenderness Ext: Pulses are strong and equal Bilateral UE and LE, NO edema, Capillary Refill is 2 second, Macular erythematous rash right inner upper arm, 1 cm blister filled with maroon colored fluid on left upper arm mid-anterior biceps Neuro: CN II through XII are grossly intact (1) Ischemic bowel disease Assessment & Plan: * Dr. Harley (surgery) on the case-->help appreciated * Dr. Giron covering. * Dr. Samara Denise (Surgery) on the case-->help appreciated * Preoperative/intraoperative/postoperative management per surgery * Dr. Alvarado (GI) on the case-->help appreciated * Dr. Rivera (ID) on the case-->help appreciated * Chest xray (05/14/18): no infiltrate, pleural effusion, or pneumothorax b/l. Diminished inspiratory volume question. No acute cardiovascular disease. * Lactic: 3.6 (prior OR)-->2.4 (post OR)-->2.3-->1.5-->1.6-->0.9 * Patient has had 2 bloody bowel movements started 05/14/18. Patient's rectal: blood. She had reported abdominal pain has worsening since night of admission. Patient required emergent surgical intervention on 05/14/18 and transferred to ICU. Patient will need a second surgery likely tomorrow on 05/16/18. * Per operative note (05/14/18): Diagnostic laparoscopy, Exploratory laparotomy, Reduction of internal hernia, Lysis of adhesions, Drainage of abdominal collections, temporary abdominal closure, EGD * Ischemia of yenni limb, internal hernia. Naveed drain stitched to distal common limb * ICU evaluation noted: Patient underwent emergency laparotomy for possible ischemic bowel. Patient had GI bleed. In the operating room patient underwent extensive exploratory laparotomy. Significant gangrene of the small bowel noted. Hernia was identified, which was reduced.After that the significant improvement in the vasculature noted. * Patient underwent surgery again on 05/16/18.Re-exploration, Small bowel resection of ileum, small bowel resection of Yenni limb with gastrojejunostomy, reversal of bypass, primary anastomosis of ileum-ileum, ileum-ileum, and ileum- jejunum, Gastrostomy tube in bypassed stomach, EGD * Per surgery, monitor for abdominal compartment syndrome * Surgery has recommended for gastrograffin study to eval stomac/small bowel prior to increase feeding tube * Dressing changed, packed in between sutures * Orimev added by surgery for pain control * Will need f/u surgery in 4-6 weeks to restore GI * Patient extubated 05/16/18. Main complaint is abdominal pain, however she is quite comfortable compared to when I met her the day she required emergent surgery. * Drains included: NGT Tube, gastrostomy tube, left nlake; right sky was removed 05/23/18 * GI series w/ small bowel: no evidence of postsurgical leak * IV abx: * Flagyl 500mg IVPB Q8H (active since 05/15/18) * Meropenem 1 gm IVPB Q8H (active since 05/15/18) * Fluconazole 200 mg IV Q24H (active since 05/22/18) * Cultures: * Peritoneal Fluid : Pseudomonas Aeruginosa sensitive to Meropenem * Wound Culture (05/23): Gram Positive Cocci (follow up sensitivities) * Blood culture (05/15/18): no growth after 5 days X2 * Blood culture (05/22/18): no growth to date X2 * Urine culture (05/22/18) : no growth Status: Acute (2) Small bowel obstruction Assessment & Plan: * Secondary to hernia * CT abdomen/Pelvis (05/13/18): Writhing appearance of mesentric vessels. Mesentric edema. No evidence of bowel obstruction. Whirling appearance of mesentric vessels is nonspecific. Prominent mesentric lymph nodes. Mesentric edema. (preop) * Patient has had 2 bloody bowel movements started 05/14/18. Patient's rectal: blood. She had reported abdominal pain has worsening since night of admission. Patient required emergent surgical intervention on 05/14/18 and transferred to ICU. Patient will need a second surgery likely tomorrow on 05/16/18. * Per operative note (05/14/18): Diagnostic laparoscopy, Exploratory laparotomy, Reduction of internal hernia, Lysis of adhesions, Drainage of abdominal collections, temporary abdominal closure, EGD * Ischemia of yenni limb, internal hernia. Naveed drain stitched to distal common limb * ICU evaluation noted: Patient underwent emergency laparotomy for possible ischemic bowel. Patient had GI bleed. In the operating room patient underwent extensive exploratory laparotomy. Significant gangrene of the small bowel noted. Hernia was identified, which was reduced.After that the significant improvement in the vasculature noted. But there is still a segment of bowel not healthy (portion of the alimentary canal from prior gastric bypass surgery--> clarified with surgery resident), * Patient underwent surgery again on 05/16/18.Re-exploration, Small bowel resection of ileum, small bowel resection of Yenni limb with gastrojejunostomy, reversal of bypass, primary anastomosis of ileum-ileum, ileum-ileum, and ileum- jejunum, Gastrostomy tube in bypassed stomach, EGD * Per surgery, monitor for abdominal compartment syndrome * Recommend TPN. * Will need f/u surgery in 4-6 weeks to restore GI * GI series w/ small bowel (05/24/18): no evidence of postsurgical leak Status: Acute (3) Obesity (BMI 30-39.9) Assessment & Plan: * s/p gastric bypass surgery in 2013 * Operative note (2013): Yenni-en-Y gastric bypass surgery Status: Acute (4) Status post gastric bypass for obesity Assessment & Plan: * status post gastric bypass 2013 * Operative note (2013): Yenni-en-Y gastric bypass surgery Status: Acute (5) History of Asthma Assessment & Plan: * Patient not in acute exacerbation prior to OR * Atrovent Q6H (6) Leukocytosis Assessment & Plan: * Likely secondary to ischemic bowel secondary to small bowel obstruction () and had surgery (05/16/18)----- * Flagyl 500mg IVPB Q8H (active since 05/15/18) * Meropenem 1 gm IVPB Q8H (active 05/15/18) * Fluconazole 200 IVPB * Peritoneal Fluid : Pseudomonas Aeruginosa sensitive to Meropenem * Wound Culture (05/23): Gram Positive Cocci (follow up sensitivities) * Blood culture (05/15/18): no growth after 5 days X2 * Blood culture (05/22/18): no growth to date x 2 * Urine culture (05/22/18): no growth * procalcitonin: 0.44 (7) Diabetes Mellitus (Type 2); controlled Assessment & Plan: * From prior note: * Admittedly non-compliant - has not taken Januvia for one year * Accuchecks Q6H * Hypoglycemic protocol * HbA1c - 6.3 (03/10/17) * hgba1c: 02/15 * History of gastric bypass surgery (8) Hx of HTN (hypertension) Assessment & Plan: * Since Gastric Bypass has not taken meds (9) Hx of Hypothyroid Assessment & Plan: * From prior note: * Pt admits non-compliance (10) Hypercholesterolemia Assessment & Plan: * From prior note: * Pt not taking meds * LDL 138, HDL 67, Tchol 220, Trig 112 * History of gastric bypass surgery (11) Anxiety Assessment & Plan: * Patient was taking Xanax for anxiety noted in prior note * Ativan 0.5 mg IV Q8H PRN Anxiety (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 Assessment & Plan: * 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 and from my prior note from last hospitalization (13) Smoker Assessment & Plan: * From my prior note: 1ppd x 20 yrs, 1/2 ppd x 3 yrs * Nicoderm 1 patch TD patchy (14) Tachycardia * Secondary to infection? vs Secondary to anxiety? vs Secondary to pain? * She is being treated for Left G Tube fluid infection. She has been started on Ativan PRN. She has Dialuadid on board to be used PRN * Metoprolol Tartrate 25 mg NG Q12H with holding parmeters (started on 05/25/18) (15) Prophylactic measure Assessment & Plan: * Lovenox 40mg subqdaily for DVT ppx * Srivastava removed 05/20/18 * Wound vac removed 05/19/18 * on PPN on 05/23/18 * RIJ TLC 05/14/18 * Right Sky was removed and Left Sky and G tube remain as of 05/25/18 * NGT Tube * Srivastava * Off pressor * Off Paralytic * Protonix 40mg IV Q12H * Hydrocortisone 1% Cream topical TID for Right Upper Inner Arm macular rash ( likely secondary to blood pressure cuff) * Extubated 05/16/18 Status: Acute Disposition: WBC elevated at 21.9 however there are no recent fevers F/U Wound Culture sensitivities: gram positive cocci--> discussed with ID, awaiting final cultures F/U Stool Studies Patient underwent GI series w/ small bowel 05/24/18: no evidence of postsurgical leak Started on Ativan 0.5 mg IV Q8H PRN Anxiety Started on Metoprolol Tartrate 25 mg NGT Q12H Keep an eye on the 1 cm maroon colored blister on Left Upper Arm Franki Denise D.O. Objective - Vital Signs/Intake and Output Vital Signs (last 24 hours): Temp Pulse Resp BP Pulse Ox 98.8 F 120 H 16 140/102 H 99 05/25/18 04:00 05/25/18 07:00 05/25/18 07:00 05/25/18 06:58 05/25/18 07:00 Intake and Output: 05/25/18 05/25/18 06:59 18:59 Intake Total 1992 73 Output Total 1820 Balance 172 73 - Medications Medications: Current Medications Dextrose (Dextrose 50% Inj) 0 ml IV STAT PRN; Protocol PRN Reason: Hypoglycemia Protocol Last Admin: 05/16/18 23:40 Dose: 50 ml Dextrose (Glutose 15) 0 gm PO ONCE PRN; Protocol PRN Reason: Hypoglycemia Protocol Enoxaparin Sodium (Lovenox) 40 mg SC DAILY [facility] Last Admin: 05/24/18 10:27 Dose: 40 mg Glucagon (Glucagen Diagnostic Kit) 0 mg IM STAT PRN; Protocol PRN Reason: Hypoglycemia Protocol Hydrocortisone (Cortizone 1% Cream) 0 gm TOP TID [facility] Last Admin: 05/24/18 18:51 Dose: 1 applic Hydromorphone HCl (Dilaudid) 1.5 mg IVP Q3 PRN PRN Reason: Pain, SEVERE (8-10) Last Admin: 05/25/18 05:00 Dose: 1.5 mg Dextrose (Dextrose 5% In Water 1000 Ml) 1,000 mls @ 0 mls/hr IV .Q0M PRN; Protocol; Per Protocol PRN Reason: Hypoglycemia Protocol Metronidazole (Flagyl) 500 mg in 100 mls @ 100 mls/hr IVPB Q8H [facility] PRN Reason: Protocol Last Admin: 05/25/18 05:00 Dose: 100 mls/hr Meropenem 1 gm/ Sodium (Chloride) 100 mls @ 100 mls/hr IVPB Q8H [facility] PRN Reason: Protocol Last Admin: 05/25/18 03:40 Dose: 100 mls/hr Fluconazole 100 mg/ (Miscellaneous) 50 mls @ 100 mls/hr IVPB Q24H [facility] PRN Reason: Protocol Last Admin: 05/24/18 14:13 Dose: 100 mls/hr Potassium Chloride 20 meq/Multivitamins/Vitamin C 10 ml/Chromium/Copper/ Manganese/Seleni/Zn 1 ml/ Insulin Human Regular 10 unit/ Heparin Sodium (Porcine ) 1,000 units/Amino Acids/Electrolytes/Dextrose 1,022.1 mls @ 63 mls/hr IV .[id number] ONE Stop: 05/25/18 10:13 Last Admin: 05/24/18 18:25 Dose: 63 mls/hr Potassium Chloride 20 meq/Chromium/Copper/Manganese/Seleni/Zn 1 ml/ Insulin Human Regular 10 unit/ Heparin Sodium (Porcine) 1,000 units/Amino Acids/ Electrolytes/Dextrose 1,012.1 mls @ 63 mls/hr IV .Q16H4M [facility] Stop: 05/25/18 17:59 Acetaminophen (Ofirmev) 100 mls @ 400 mls/hr IV Q6H [facility] Stop: 05/25/18 20:31 Last Admin: 05/25/18 01:36 Dose: 400 mls/hr Insulin Human Regular (Novolin R) 0 unit SC Q6 [facility] PRN Reason: Protocol Last Admin: 05/25/18 05:31 Dose: 2 unit Ipratropium [place] (Atrovent) 0.5 mg IH RQ6 [facility] Last Admin: 05/25/18 08:15 Dose: 0.5 mg Lorazepam (Ativan) 1 mg IVP ONCE PRN PRN Reason: Anxiety Last Admin: 05/24/18 11:27 Dose: 1 mg Nicotine (Nicoderm Cq) 1 patch TD DAILY [facility] Last Admin: 05/24/18 14:14 Dose: 1 patch Pantoprazole Sodium (Protonix Inj) 40 mg IVP DAILY [facility] Last Admin: 05/24/18 10:27 Dose: 40 mg Saliva Substitute (Mouth Kote 236 Ml) 0 ml MM Q6 PRN PRN Reason: Dry mouth Vitamin A (Vitamin A & D Oint Ud Foilpak) 1 ea TOP Q8 PRN PRN Reason: dry lips Last Admin: 05/20/18 11:10 Dose: 1 ea - Labs Labs: 05/25/18 06:16 05/25/18 06:16 PT 15.2 SECONDS (9.7-12.2) H 05/25/18 06:16 INR 1.4 05/25/18 06:16 APTT 33 SECONDS (21-34) 05/25/18 06:16
[2018-05-25] MEDS: Enoxaparin 40 mg Syringe SC SCH (09:36)
[2018-05-25] MEDS: Lactobacillus Acidophilus 500 MU Cap PEG SCH ×2 (09:52→18:12)
[2018-05-25] MEDS: Hydrocortisone 1% Cream (30 GM) TOP SCH ×3 (10:13→18:14)
[2018-05-25] MEDS ORDERED: TPN#10 IV SCH (10:15)
[2018-05-25] MEDS: Fluconazole IV 200mg/100 ml NS 100 MG in Premixed IV 1 EA IVPB SCH (13:01)
[2018-05-25] MEDS ORDERED: Acetaminophen 650mg/20.3ml solution UD PO SCH ×2 (14:00→15:05)
--- NOTE | 2018-05-25 15:13 | CP.PCM.PN ---
Subjective - Date & Time of Evaluation Date of Evaluation: 05/25/18 Time of Evaluation: 11:00 - Subjective Subjective: Patient seen and examined. Reports feeling better. Ambulating hallway with physical therapy. Tolerating GT feeds. Pt reports having BMs. Scant drainage from left JONAH drain. Midline incision dressings saturated with serous drainage. Objective - Vital Signs/Intake and Output Vital Signs (last 24 hours): Temp Pulse Resp BP Pulse Ox 97.9 F 124 H 20 131/85 95 05/25/18 12:45 05/25/18 12:45 05/25/18 12:45 05/25/18 12:45 05/25/18 12:45 Intake and Output: 05/25/18 05/25/18 06:59 18:59 Intake Total 1992 219 Output Total 1820 Balance 172 219 - Medications Medications: Current Medications Acetaminophen (Tylenol 650mg/20.3ml Solution Ud) 975 mg GT Q8 [facility] Dextrose (Dextrose 50% Inj) 0 ml IV STAT PRN; Protocol PRN Reason: Hypoglycemia Protocol Last Admin: 05/16/18 23:40 Dose: 50 ml Dextrose (Glutose 15) 0 gm PO ONCE PRN; Protocol PRN Reason: Hypoglycemia Protocol Enoxaparin Sodium (Lovenox) 40 mg SC DAILY [facility] Last Admin: 05/25/18 09:36 Dose: 40 mg Glucagon (Glucagen Diagnostic Kit) 0 mg IM STAT PRN; Protocol PRN Reason: Hypoglycemia Protocol Hydrocortisone (Cortizone 1% Cream) 0 gm TOP TID [facility] Last Admin: 05/25/18 13:26 Dose: Not Given Hydromorphone HCl (Dilaudid) 1.5 mg IVP Q3 PRN PRN Reason: Pain, SEVERE (8-10) Last Admin: 05/25/18 13:22 Dose: 1.5 mg Dextrose (Dextrose 5% In Water 1000 Ml) 1,000 mls @ 0 mls/hr IV .Q0M PRN; Protocol; Per Protocol PRN Reason: Hypoglycemia Protocol Metronidazole (Flagyl) 500 mg in 100 mls @ 100 mls/hr IVPB Q8H [facility] PRN Reason: Protocol Last Admin: 05/25/18 11:54 Dose: 100 mls/hr Meropenem 1 gm/ Sodium (Chloride) 100 mls @ 100 mls/hr IVPB Q8H [facility] PRN Reason: Protocol Last Admin: 05/25/18 10:14 Dose: 100 mls/hr Fluconazole 100 mg/ (Miscellaneous) 50 mls @ 100 mls/hr IVPB Q24H [facility] PRN Reason: Protocol Last Admin: 05/25/18 13:01 Dose: 100 mls/hr Potassium Chloride 20 meq/Chromium/Copper/Manganese/Seleni/Zn 1 ml/ Insulin Human Regular 10 unit/ Heparin Sodium (Porcine) 1,000 units/Amino Acids/ Electrolytes/Dextrose 1,012.1 mls @ 63 mls/hr IV .Q16H4M [facility] Stop: 05/25/18 17:59 Last Admin: 05/25/18 11:23 Dose: 63 mls/hr Potassium Chloride 20 meq/Multivitamins/Vitamin C 10 ml/Chromium/Copper/ Manganese/Seleni/Zn 1 ml/ Insulin Human Regular 10 unit/ Heparin Sodium (Porcine ) 1,000 units/Amino Acids/Electrolytes/Dextrose 1,022.1 mls @ 63 mls/hr IV .[id number] ONE Stop: 05/26/18 10:13 Potassium Chloride 20 meq/Chromium/Copper/Manganese/Seleni/Zn 1 ml/ Insulin Human Regular 10 unit/ Heparin Sodium (Porcine) 1,000 units/Amino Acids/ Electrolytes/Dextrose 1,012.1 mls @ 63 mls/hr IV .Q16H4M [facility] Stop: 05/26/18 17:59 Insulin Human Regular (Novolin R) 0 unit SC Q6 [facility] PRN Reason: Protocol Last Admin: 05/25/18 12:07 Dose: 2 unit Ipratropium [place] (Atrovent) 0.5 mg IH RQ6 [facility] Last Admin: 05/25/18 14:03 Dose: Not Given Lactobacillus Acidophilus (Bacid Acidophilus) 1 cap PEG BID [facility] Last Admin: 05/25/18 09:52 Dose: 1 cap Lorazepam (Ativan) 0.5 mg IVP Q8H PRN PRN Reason: Anxiety Last Admin: 05/25/18 11:30 Dose: 0.5 mg Metoprolol Tartrate (Lopressor) 25 mg NG BID [facility] Last Admin: 05/25/18 09:37 Dose: 25 mg Nicotine (Nicoderm Cq) 1 patch TD DAILY [facility] Last Admin: 05/25/18 09:37 Dose: 1 patch Pantoprazole Sodium (Protonix Inj) 40 mg IVP DAILY [facility] Last Admin: 05/25/18 09:37 Dose: 40 mg Saliva Substitute (Mouth Kote 236 Ml) 0 ml MM Q6 PRN PRN Reason: Dry mouth Vitamin A (Vitamin A & D Oint Ud Foilpak) 1 ea TOP Q8 PRN PRN Reason: dry lips Last Admin: 05/20/18 11:10 Dose: 1 ea - Labs Labs: 05/25/18 06:16 05/25/18 06:16 PT 15.2 SECONDS (9.7-12.2) H 05/25/18 06:16 INR 1.4 05/25/18 06:16 APTT 33 SECONDS (21-34) 05/25/18 06:16 - Constitutional Appears: No Acute Distress - Head Exam Head Exam: NORMOCEPHALIC - Eye Exam Eye Exam: Normal appearance - ENT Exam ENT Exam: Mucous Membranes Moist - Respiratory Exam Respiratory Exam: NORMAL BREATHING PATTERN - Cardiovascular Exam Cardiovascular Exam: Tachycardia, +S1, +S2 - GI/Abdominal Exam GI & Abdominal Exam: Soft. absent: Distended, Firm, Guarding, Rigid Additional comments: Midline incision packed with iodoform packing - Neurological Exam Neurological Exam: Alert, Awake, Oriented x3 - Psychiatric Exam Psychiatric exam: Normal Mood - Skin Skin Exam: Dry, Warm Assessment and Plan - Assessment and Plan (Free Text) Assessment: 37yo F with PMHx of yenni-en-Y gastric bypass in 2013 now with bowel ischemia secondary to internal hernia. POD#11 s/p Exploratory laparotomy, Reduction of internal hernia, DANNI, Drainage of abdominal collections, temporary abdominal closure (fascia left open), EGD. POD#8 s/p Re-exploration, Small bowel resection of ileum, small bowel resection of Yenni limb including previous gastrojejunostomy, reversal of bypass, primary anastomosis of ileum-ileum, ileum-ileum, and ileum-jejunum, Gastrostomy tube in bypassed stomach, EGD Plan: -STRICT NPO w/ NG tube to low intermittent suction in gastric pouch -Left JONAH drain removed - Advance tube feeds to goal via gastrostomy tube -Liquid Tylenol via Gtube q8 [facility] - DVT Prophylaxis: Lovenox - Will need surgery in 4 weeks to restore GI continuity - Dressing changed, iodoform packing between sutures - Encouraged OOB, ambulation and IS use. - Continue physical therapy - Discussed plan with Dr. Mack Jimenez PGY3
[2018-05-25] MEDS ORDERED: TPN CENTRAL LINE IV ONE (18:00)
--- NOTE | 2018-05-25 21:18 | CP.PCM.PN ---
Subjective - Date & Time of Evaluation Date of Evaluation: 05/25/18 Time of Evaluation: 18:00 - Subjective Subjective: dictated Objective - Vital Signs/Intake and Output Vital Signs (last 24 hours): Temp Pulse Resp BP Pulse Ox 98.3 F 124 H 20 138/70 100 05/25/18 16:00 05/25/18 16:00 05/25/18 16:00 05/25/18 18:12 05/25/18 16:00 Intake and Output: 05/25/18 05/26/18 18:59 06:59 Intake Total 219 Balance 219 - Medications Medications: Current Medications Acetaminophen (Tylenol 650mg/20.3ml Solution Ud) 975 mg GT Q8 [facility] Dextrose (Dextrose 50% Inj) 0 ml IV STAT PRN; Protocol PRN Reason: Hypoglycemia Protocol Last Admin: 05/16/18 23:40 Dose: 50 ml Dextrose (Glutose 15) 0 gm PO ONCE PRN; Protocol PRN Reason: Hypoglycemia Protocol Enoxaparin Sodium (Lovenox) 40 mg SC DAILY [facility] Last Admin: 05/25/18 09:36 Dose: 40 mg Glucagon (Glucagen Diagnostic Kit) 0 mg IM STAT PRN; Protocol PRN Reason: Hypoglycemia Protocol Hydrocortisone (Cortizone 1% Cream) 0 gm TOP TID [facility] Last Admin: 05/25/18 18:14 Dose: 1 applic Hydromorphone HCl (Dilaudid) 1.5 mg IVP Q3 PRN PRN Reason: Pain, SEVERE (8-10) Last Admin: 05/25/18 19:37 Dose: 1.5 mg Dextrose (Dextrose 5% In Water 1000 Ml) 1,000 mls @ 0 mls/hr IV .Q0M PRN; Protocol; Per Protocol PRN Reason: Hypoglycemia Protocol Metronidazole (Flagyl) 500 mg in 100 mls @ 100 mls/hr IVPB Q8H [facility] PRN Reason: Protocol Last Admin: 05/25/18 11:54 Dose: 100 mls/hr Meropenem 1 gm/ Sodium (Chloride) 100 mls @ 100 mls/hr IVPB Q8H [facility] PRN Reason: Protocol Last Admin: 05/25/18 10:14 Dose: 100 mls/hr Fluconazole 100 mg/ (Miscellaneous) 50 mls @ 100 mls/hr IVPB Q24H [facility] PRN Reason: Protocol Last Admin: 05/25/18 13:01 Dose: 100 mls/hr Potassium Chloride 20 meq/Multivitamins/Vitamin C 10 ml/Chromium/Copper/ Manganese/Seleni/Zn 1 ml/ Insulin Human Regular 10 unit/ Heparin Sodium (Porcine ) 1,000 units/Amino Acids/Electrolytes/Dextrose 1,022.1 mls @ 63 mls/hr IV .[id number] ONE Stop: 05/26/18 10:13 Last Admin: 05/25/18 18:12 Dose: 63 mls/hr Potassium Chloride 20 meq/Chromium/Copper/Manganese/Seleni/Zn 1 ml/ Insulin Human Regular 10 unit/ Heparin Sodium (Porcine) 1,000 units/Amino Acids/ Electrolytes/Dextrose 1,012.1 mls @ 63 mls/hr IV .Q16H4M [facility] Stop: 05/26/18 17:59 Insulin Human Regular (Novolin R) 0 unit SC Q6 [facility] PRN Reason: Protocol Last Admin: 05/25/18 18:14 Dose: 1 unit Ipratropium [place] (Atrovent) 0.5 mg IH RQ6 [facility] Last Admin: 05/25/18 20:19 Dose: 0.5 mg Lactobacillus Acidophilus (Bacid Acidophilus) 1 cap PEG BID [facility] Last Admin: 05/25/18 18:12 Dose: 1 cap Lorazepam (Ativan) 0.5 mg IVP Q8H PRN PRN Reason: Anxiety Last Admin: 05/25/18 19:39 Dose: 0.5 mg Metoprolol Tartrate (Lopressor) 25 mg NG BID [facility] Last Admin: 05/25/18 18:12 Dose: 25 mg Nicotine (Nicoderm Cq) 1 patch TD DAILY [facility] Last Admin: 05/25/18 09:37 Dose: 1 patch Pantoprazole Sodium (Protonix Inj) 40 mg IVP DAILY [facility] Last Admin: 05/25/18 09:37 Dose: 40 mg Saliva Substitute (Mouth Kote 236 Ml) 0 ml MM Q6 PRN PRN Reason: Dry mouth Vitamin A (Vitamin A & D Oint Ud Foilpak) 1 ea TOP Q8 PRN PRN Reason: dry lips Last Admin: 05/20/18 11:10 Dose: 1 ea - Labs Labs: 05/25/18 06:16 05/25/18 06:16 PT 15.2 SECONDS (9.7-12.2) H 05/25/18 06:16 INR 1.4 05/25/18 06:16 APTT 33 SECONDS (21-34) 05/25/18 06:16
[2018-05-25] MEDS: Acetaminophen 650mg/20.3ml solution UD GT SCH (21:53)
[2018-05-26] MEDS: (Novolin R) Insulin Human Regular 100 units/ml vial SC SCH ×5 (00:14→23:59)
[2018-05-26] MEDS: Ipratropium 0.02% Inhal Soln (0.5 mg/2.5 ml) UD IH SCH ×4 (01:17→19:16)
[2018-05-26] MEDS: Meropenem 1 GM in Sodium Chloride 0.9% 100 ML IVPB SCH ×3 (02:00→19:31)
--- NOTE | 2018-05-26 02:19 | PN ---
Copied To: Guero Rivera MD Attending MD: Guero Rivera MD DATE: 05/25/2018 The patient was seen today. She has been moved from the unit to the floor now. She still has NG tube to suction. She said that they are suctioning her, but they are feeding her from the bottom as there is no connection in between. They need to do other surgeries to make it better, but she denied any other symptoms. Now, they are giving Tylenol IV, was changed to rectal every 6 hours. May be she does have fevers and they are suppressing it. The patient continues to complain of abdominal pain, but she was quiet when I went in there, and she did have a suction from the nasal tube and she complains of pain. She had multiple bowel movements, so we will look into C. difficile. She also has a rash on the right inner arm, which I missed to see. At this time, she is on antibiotics. She had ischemic bowel disease and because she has had a bypass surgery. She may need another surgery, which is pending. Her white count still remains high at 21.8. Hemoglobin 8.4, hematocrit 24.9, platelet count 620; it is still high. Potassium is low. Alk phos . Albumin is 2.8. So I think because of the diarrheas, we did a stool for C. difficile recently which was negative, but this white count being elevated, they did study for . She still has a triple lumen. The line should be removed or changed if this white count remains persistent. She is on meropenem and Flagyl at this time. We just discontinued the vancomycin as chest x-ray was negative. Now, the wound culture came out yeast and she is on Diflucan. I want to see. This is from the tube where they are feeding her from, so we want to make sure that we have been giving her fluconazole since 05/22/2018 and even before, but she is also on Diflucan at this time. We will continue present treatment and we will follow. Guero Rivera MD [facility] # [phone]
[2018-05-26] MEDS: metroNIDAZOLE IV 500 mg/100 ml 500 MG/100 ML BAG IVPB SCH ×3 (04:28→19:34)
[2018-05-26] MEDS: Acetaminophen 650mg/20.3ml solution UD GT SCH ×3 (05:19→22:55)
[2018-05-26 06:40] LABS: BASO # 0.1 K/uL (0.0-0.2); BASO % 0.5 % (0.0-2.0); EOS # 0.4 K/uL (0.0-0.7); EOS % 1.9 % (0.0-4.0); HEMOGLOBIN 8.2 g/dL (11.0-16.0); LYMPH # 2.4 K/uL (1.0-4.3); LYMPH % 13.4 % (20.0-40.0); MEAN CELL VOLUME 86.6 fL (81.0-99.0); MEAN CORPUSCULAR HEMOGLOBIN 29.2 pg (27.0-31.0); MEAN CORPUSCULAR HGB CONC 33.7 g/dL (33.0-37.0); MONO # 0.8 K/uL (0.0-0.8); MONO % 4.5 % (0.0-10.0); NEUT # 14.4 K/uL (1.8-7.0); NEUT % 79.7 % (50.0-75.0); RBC 2.82 Mil/uL (3.80-5.20); RED CELL DISTRIBUTION WIDTH 16.6 % (11.5-14.5); WHITE BLOOD COUNT 18.1 K/uL (4.8-10.8)
[2018-05-26 06:42] LABS: INR 1.5
[2018-05-26 07:32] LABS: ALB/GLOB RATIO 0.9 (1.0-2.1); ALBUMIN 2.8 g/dL (3.5-5.0); ALT/SGPT 21 U/L (9-52); AST/SGOT 29 U/L (14-36); BLOOD UREA NITROGEN 13 mg/dL (7-17); CALCIUM 8.1 mg/dl (8.6-10.4); GFR NON-AFRICAN AMERICAN > 60
--- NOTE | 2018-05-26 09:19 | CP.PCM.PN ---
<Doretha Turk V - Last Filed: 05/26/18 14:53> Objective - Vital Signs/Intake and Output Vital Signs (last 24 hours): Temp Pulse Resp BP Pulse Ox 98.3 F 131 H 18 122/81 98 05/26/18 07:15 05/26/18 08:00 05/26/18 07:15 05/26/18 09:40 05/26/18 07:15 Intake and Output: 05/26/18 05/26/18 06:59 18:59 Intake Total 1030 Output Total 500 Balance 530 - Medications Medications: Current Medications Acetaminophen (Tylenol 650mg/20.3ml Solution Ud) 975 mg GT Q8 KATELYN Last Admin: 05/26/18 05:19 Dose: 975 mg Dextrose (Dextrose 50% Inj) 0 ml IV STAT PRN; Protocol PRN Reason: Hypoglycemia Protocol Last Admin: 05/16/18 23:40 Dose: 50 ml Dextrose (Glutose 15) 0 gm PO ONCE PRN; Protocol PRN Reason: Hypoglycemia Protocol Glucagon (Glucagen Diagnostic Kit) 0 mg IM STAT PRN; Protocol PRN Reason: Hypoglycemia Protocol Hydrocortisone (Cortizone 1% Cream) 0 gm TOP TID [facility] Last Admin: 05/26/18 09:41 Dose: 1 applic Hydromorphone HCl (Dilaudid) 1.5 mg IVP Q3 PRN PRN Reason: Pain, SEVERE (8-10) Last Admin: 05/26/18 14:22 Dose: 1.5 mg Dextrose (Dextrose 5% In Water 1000 Ml) 1,000 mls @ 0 mls/hr IV .Q0M PRN; Protocol; Per Protocol PRN Reason: Hypoglycemia Protocol Metronidazole (Flagyl) 500 mg in 100 mls @ 100 mls/hr IVPB Q8H KATELYN PRN Reason: Protocol Last Admin: 05/26/18 04:28 Dose: 100 mls/hr Meropenem 1 gm/ Sodium (Chloride) 100 mls @ 100 mls/hr IVPB Q8H KATELYN PRN Reason: Protocol Last Admin: 05/26/18 10:50 Dose: 100 mls/hr Fluconazole 100 mg/ (Miscellaneous) 50 mls @ 100 mls/hr IVPB Q24H KATELYN PRN Reason: Protocol Last Admin: 05/26/18 14:21 Dose: 100 mls/hr Potassium Chloride 20 meq/Chromium/Copper/Manganese/Seleni/Zn 1 ml/ Insulin Human Regular 10 unit/ Heparin Sodium (Porcine) 1,000 units/Amino Acids/ Electrolytes/Dextrose 1,012.1 mls @ 63 mls/hr IV .Q16H4M [facility] Stop: 05/26/18 17:59 Last Admin: 05/26/18 09:44 Dose: 63 mls/hr Potassium Chloride 20 meq/Chromium/Copper/Manganese/Seleni/Zn 1 ml/ Insulin Human Regular 10 unit/ Heparin Sodium (Porcine) 1,000 units/Multivitamins/ Vitamin C 10 ml/Amino Acids/Electrolytes/Dextrose 1,022.1 mls @ 63 mls/hr IV .[id number] ONE Stop: 05/27/18 10:13 Potassium Chloride 20 meq/Chromium/Copper/Manganese/Seleni/Zn 1 ml/ Insulin Human Regular 10 unit/ Heparin Sodium (Porcine) 1,000 units/Amino Acids/ Electrolytes/Dextrose 1,012.1 mls @ 63 mls/hr IV .Q16H4M [facility] Stop: 05/27/18 17:59 Fat Emulsion Intravenous (Intralipid 20%) 500 mls @ 42 mls/hr IV QOD@1800 [facility] Insulin Human Regular (Novolin R) 0 unit SC Q6 [facility] PRN Reason: Protocol Last Admin: 05/26/18 12:20 Dose: 2 unit Ipratropium [place] (Atrovent) 0.5 mg IH RQ6 [facility] Last Admin: 05/26/18 12:30 Dose: 0.5 mg Lactobacillus Acidophilus (Bacid Acidophilus) 1 cap PEG BID [facility] Last Admin: 05/26/18 09:34 Dose: 1 cap Lorazepam (Ativan) 0.5 mg IVP Q8H PRN PRN Reason: Anxiety Last Admin: 05/26/18 12:37 Dose: 0.5 mg Metoprolol Tartrate (Lopressor) 25 mg NG BID [facility] Last Admin: 05/26/18 09:40 Dose: 25 mg Nicotine (Nicoderm Cq) 1 patch TD DAILY [facility] Last Admin: 05/26/18 09:41 Dose: 1 patch Pantoprazole Sodium (Protonix Inj) 40 mg IVP DAILY [facility] Last Admin: 05/26/18 09:34 Dose: 40 mg Saliva Substitute (Mouth Kote 236 Ml) 0 ml MM Q6 PRN PRN Reason: Dry mouth Vitamin A (Vitamin A & D Oint Ud Foilpak) 1 ea TOP Q8 PRN PRN Reason: dry lips Last Admin: 05/20/18 11:10 Dose: 1 ea - Labs Labs: 05/26/18 06:32 05/26/18 06:32 PT 16.0 SECONDS (9.7-12.2) H 05/26/18 06:32 INR 1.5 05/26/18 06:32 APTT 33 SECONDS (21-34) 05/25/18 06:16 Assessment and Plan (1) Ischemic bowel disease Status: Acute (2) Obesity (BMI 30-39.9) Status: Acute (3) Status post gastric bypass for obesity Status: Resolved (4) Small bowel obstruction Status: Acute (5) Prophylactic measure Status: Acute Attending/Attestation - Attestation I have personally seen and examined this patient.: Yes I have fully participated in the care of the patient.: Yes I have reviewed all pertinent clinical information, including history, physical exam and plan: Yes Notes (Text): Patient seen, examined and case discussed with regional medical director. Patient seen this morning during rounds. She was transferred out from the unit yesterday. Patient has blood blister over the left upper extremity. Patient is very comfortable at bedside.. She is aware we will not be touching her pain regiment. She has noted to ask for Ativan 2mg IV overnight and I did remind her I will not be increasing her medications. As outpatient, patient oxycodone 30mg PO Q6H and Xanax 1mg PO Q8H confirmed with pain management. Patient reports diarrhea is less, denies anal irritation. Abdomen: soft, nontender, dressing noted mid-line. both right and left min drains are removed. and tylenol changed to liquid from rectal from surgery. Patient is currently on Flagyl, Vancomycin, and Meropenem and Diflucan. White count downtrending. Will continue to monitor. (1) Ischemic bowel disease Assessment & Plan: * Dr. Harley (surgery) on the case-->help appreciated * Dr. Giron covering. * Dr. Samara Denise (Surgery) on the case-->help appreciated * Preoperative/intraoperative/postoperative management per surgery * Dr. Alvarado (GI) on the case-->help appreciated * Dr. Rivera (ID) on the case-->help appreciated * Chest xray (05/14/18): no infiltrate, pleural effusion, or pneumothorax b/l. Diminished inspiratory volume question. No acute cardiovascular disease. * Lactic: 3.6 (prior OR)-->2.4 (post OR)-->2.3-->1.5-->1.6-->0.9 * Patient has had 2 bloody bowel movements started 05/14/18. Patient's rectal: blood. She had reported abdominal pain has worsening since night of admission. Patient required emergent surgical intervention on 05/14/18 and transferred to ICU. Patient will need a second surgery likely tomorrow on 05/16/18. * Per operative note (05/14/18): Diagnostic laparoscopy, Exploratory laparotomy, Reduction of internal hernia, Lysis of adhesions, Drainage of abdominal collections, temporary abdominal closure, EGD * Ischemia of yenni limb, internal hernia. Naveed drain stitched to distal common limb * ICU evaluation noted: Patient underwent emergency laparotomy for possible ischemic bowel. Patient had GI bleed. In the operating room patient underwent extensive exploratory laparotomy. Significant gangrene of the small bowel noted. Hernia was identified, which was reduced.After that the significant improvement in the vasculature noted. * Patient underwent surgery again on 05/16/18.Re-exploration, Small bowel resection of ileum, small bowel resection of Yenni limb with gastrojejunostomy, reversal of bypass, primary anastomosis of ileum-ileum, ileum-ileum, and ileum- jejunum, Gastrostomy tube in bypassed stomach, EGD * Per surgery, monitor for abdominal compartment syndrome * Surgery has recommended for gastrograffin study to eval stomac/small bowel prior to increase feeding tube * Dressing changed, packed in between sutures * Orimev added by surgery for pain control * Will need f/u surgery in 4-6 weeks to restore GI * Patient extubated 05/16/18. Main complaint is abdominal pain, however she is quite comfortable compared to when I met her the day she required emergent surgery. * Drains included: NGT Tube, gastrostomy tube, left min removed 05/25/18; right min was removed 05/23/18 * GI series w/ small bowel: no evidence of postsurgical leak * IV abx: * Flagyl 500mg IVPB Q8H (active since 05/15/18) * Meropenem 1 gm IVPB Q8H (active 05/15/18) * Fluconazole 100mg IVPB Q24H (active 05/22/18) * Cultures: * Peritoneal Fluid : Pseudomonas Aeruginosa sensitive to Meropenem * Wound Culture (05/23): Yudith Albican--->Diflucan since 05/22/18 * Blood culture (05/15/18): no growth after 5 days X2 * Blood culture (05/22/18): no growth after 5 days X2 * Urine culture: no growth Status: Acute (2) Small bowel obstruction Assessment & Plan: * Secondary to hernia * CT abdomen/Pelvis (05/13/18): Writhing appearance of mesentric vessels. Mesentric edema. No evidence of bowel obstruction. Whirling appearance of mesentric vessels is nonspecific. Prominent mesentric lymph nodes. Mesentric edema. (preop) * Patient has had 2 bloody bowel movements started 05/14/18. Patient's rectal: blood. She had reported abdominal pain has worsening since night of admission. Patient required emergent surgical intervention on 05/14/18 and transferred to ICU. Patient will need a second surgery likely tomorrow on 05/16/18. * Per operative note (05/14/18): Diagnostic laparoscopy, Exploratory laparotomy, Reduction of internal hernia, Lysis of adhesions, Drainage of abdominal collections, temporary abdominal closure, EGD * Ischemia of yenni limb, internal hernia. Naveed drain stitched to distal common limb * ICU evaluation noted: Patient underwent emergency laparotomy for possible ischemic bowel. Patient had GI bleed. In the operating room patient underwent extensive exploratory laparotomy. Significant gangrene of the small bowel noted. Hernia was identified, which was reduced.After that the significant improvement in the vasculature noted. But there is still a segment of bowel not healthy (portion of the alimentary canal from prior gastric bypass surgery--> clarified with surgery resident), * Patient underwent surgery again on 05/16/18.Re-exploration, Small bowel resection of ileum, small bowel resection of Yenni limb with gastrojejunostomy, reversal of bypass, primary anastomosis of ileum-ileum, ileum-ileum, and ileum- jejunum, Gastrostomy tube in bypassed stomach, EGD * Per surgery, monitor for abdominal compartment syndrome * Recommend TPN. * Will need f/u surgery in 4-6 weeks to restore GI * GI series w/ small bowel: no evidence of postsurgical leak Status: Acute (3) Obesity (BMI 30-39.9) Assessment & Plan: * s/p gastric bypass surgery in 2013 * Operative note (2013): Yenni-en-Y gastric bypass surgery Status: Acute (4) Status post gastric bypass for obesity Assessment & Plan: * status post gastric bypass 2013 * Operative note (2013): Yenni-en-Y gastric bypass surgery Status: Acute (5) History of Asthma Assessment & Plan: * Patient not in acute exacerbation prior to OR * Atrovent Q6H (6) Leukocytosis Assessment & Plan: * Likely secondary to ischemic bowel secondary to small bowel obstruction () and had surgery (05/16/18)----- * Flagyl 500mg IVPB Q8H (active since 05/15/18) * Meropenem 1 gm IVPB Q8H (active 05/15/18) * Fluconazole IVPB * Peritoneal Fluid : Pseudomonas Aeruginosa sensitive to Meropenem * Wound Culture (05/23): * Blood culture (05/15/18): no growth after 5 days X2 * Blood culture (05/22/18): no growth after 5 days X2 * Urine culture: no growth * procalcitonin: 0.44 (7) Diabetes Mellitus (Type 2); controlled Assessment & Plan: * From prior note: * Admittedly non-compliant - has not taken Januvia for one year * Accuchecks Q6H * Hypoglycemic protocol * HbA1c - 6.3 (03/10/17) * hgba1c: 02/15 * History of gastric bypass surgery (8) Hx of HTN (hypertension) Assessment & Plan: * Since Gastric Bypass has not taken meds (9) Hx of Hypothyroid Assessment & Plan: * From prior note: * Pt admits non-compliance (10) Hypercholesterolemia Assessment & Plan: * From prior note: * Pt not taking meds * LDL 138, HDL 67, Tchol 220, Trig 112 * History of gastric bypass surgery (11) Anxiety Assessment & Plan: * Patient was taking Xanax for anxiety noted in prior note (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 Assessment & Plan: * 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 and from my prior note from last hospitalization (13) Smoker Assessment & Plan: * From my prior note: 1ppd x 20 yrs, 1/2 ppd x 3 yrs * Nicoderm 1 patch TD patchy (14) Prophylactic measure Assessment & Plan: * Lovenox 40mg subqdaily for DVT ppx * Srivastava removed 05/20/18 * Wound vac removed 05/19/18 * on PPN on 05/23/18 * RIJ TLC 05/14/18 * NGT Tube * Srivastava * Off pressor * Off Paralytic * Protonix 40mg IV Q12H * Extubated 05/16/18 * STRICT NPO Status: Acute Disposition: f/u white count, monitor diarrhea which is less, patient is pending surgery in 4weeks to re-establish GI motility <Yanelis Hudson - Last Filed: 05/26/18 17:29> Subjective - Date & Time of Evaluation Date of Evaluation: 05/26/18 Time of Evaluation: 09:25 - Subjective Subjective: PGY-1 Yanelis Hudson D.O. Medicien progress note for Dr. Turk's service: Patient is seen and examined this morning. She is not in acute distress. She reports pain ins tolerable, but increases significantly when she moves around/ works with PT. She states she is still having diarrhea, but she is going less frequently. Other min drain was removed yesterday (left side). Patient reports that her upper arm rash is resolved. Objective - Vital Signs/Intake and Output Vital Signs (last 24 hours): Temp Pulse Resp BP Pulse Ox 98.3 F 130 H 18 130/88 98 05/26/18 07:15 05/26/18 07:15 05/26/18 07:15 05/26/18 07:15 05/26/18 07:15 Intake and Output: 05/26/18 05/26/18 06:59 18:59 Intake Total 1030 Output Total 500 Balance 530 - Medications Medications: Current Medications Acetaminophen (Tylenol 650mg/20.3ml Solution Ud) 975 mg GT Q8 KATELYN Last Admin: 05/26/18 05:19 Dose: 975 mg Dextrose (Dextrose 50% Inj) 0 ml IV STAT PRN; Protocol PRN Reason: Hypoglycemia Protocol Last Admin: 05/16/18 23:40 Dose: 50 ml Dextrose (Glutose 15) 0 gm PO ONCE PRN; Protocol PRN Reason: Hypoglycemia Protocol Enoxaparin Sodium (Lovenox) 40 mg SC DAILY [facility] Last Admin: 05/25/18 09:36 Dose: 40 mg Glucagon (Glucagen Diagnostic Kit) 0 mg IM STAT PRN; Protocol PRN Reason: Hypoglycemia Protocol Hydrocortisone (Cortizone 1% Cream) 0 gm TOP TID [facility] Last Admin: 05/25/18 18:14 Dose: 1 applic Hydromorphone HCl (Dilaudid) 1.5 mg IVP Q3 PRN PRN Reason: Pain, SEVERE (8-10) Last Admin: 05/26/18 07:52 Dose: 1.5 mg Dextrose (Dextrose 5% In Water 1000 Ml) 1,000 mls @ 0 mls/hr IV .Q0M PRN; Protocol; Per Protocol PRN Reason: Hypoglycemia Protocol Metronidazole (Flagyl) 500 mg in 100 mls @ 100 mls/hr IVPB Q8H [facility] PRN Reason: Protocol Last Admin: 05/26/18 04:28 Dose: 100 mls/hr Meropenem 1 gm/ Sodium (Chloride) 100 mls @ 100 mls/hr IVPB Q8H [facility] PRN Reason: Protocol Last Admin: 05/26/18 02:00 Dose: 100 mls/hr Fluconazole 100 mg/ (Miscellaneous) 50 mls @ 100 mls/hr IVPB Q24H [facility] PRN Reason: Protocol Last Admin: 05/25/18 13:01 Dose: 100 mls/hr Potassium Chloride 20 meq/Multivitamins/Vitamin C 10 ml/Chromium/Copper/ Manganese/Seleni/Zn 1 ml/ Insulin Human Regular 10 unit/ Heparin Sodium (Porcine ) 1,000 units/Amino Acids/Electrolytes/Dextrose 1,022.1 mls @ 63 mls/hr IV .[id number] ONE Stop: 05/26/18 10:13 Last Admin: 05/25/18 18:12 Dose: 63 mls/hr Potassium Chloride 20 meq/Chromium/Copper/Manganese/Seleni/Zn 1 ml/ Insulin Human Regular 10 unit/ Heparin Sodium (Porcine) 1,000 units/Amino Acids/ Electrolytes/Dextrose 1,012.1 mls @ 63 mls/hr IV .Q16H4M [facility] Stop: 05/26/18 17:59 Insulin Human Regular (Novolin R) 0 unit SC Q6 [facility] PRN Reason: Protocol Last Admin: 05/26/18 06:41 Dose: 1 unit Ipratropium [place] (Atrovent) 0.5 mg IH RQ6 [facility] Last Admin: 05/26/18 06:40 Dose: 0.5 mg Lactobacillus Acidophilus (Bacid Acidophilus) 1 cap PEG BID [facility] Last Admin: 05/25/18 18:12 Dose: 1 cap Lorazepam (Ativan) 0.5 mg IVP Q8H PRN PRN Reason: Anxiety Last Admin: 05/26/18 04:22 Dose: 0.5 mg Metoprolol Tartrate (Lopressor) 25 mg NG BID [facility] Last Admin: 05/25/18 18:12 Dose: 25 mg Nicotine (Nicoderm Cq) 1 patch TD DAILY [facility] Last Admin: 05/25/18 09:37 Dose: 1 patch Pantoprazole Sodium (Protonix Inj) 40 mg IVP DAILY [facility] Last Admin: 05/25/18 09:37 Dose: 40 mg Saliva Substitute (Mouth Kote 236 Ml) 0 ml MM Q6 PRN PRN Reason: Dry mouth Vitamin A (Vitamin A & D Oint Ud Foilpak) 1 ea TOP Q8 PRN PRN Reason: dry lips Last Admin: 05/20/18 11:10 Dose: 1 ea - Labs Labs: 05/26/18 06:32 05/26/18 06:32 PT 16.0 SECONDS (9.7-12.2) H 05/26/18 06:32 INR 1.5 05/26/18 06:32 APTT 33 SECONDS (21-34) 05/25/18 06:16 - Constitutional Appears: Well, Non-toxic, No Acute Distress - Head Exam Head Exam: ATRAUMATIC, NORMAL INSPECTION, NORMOCEPHALIC - Eye Exam Eye Exam: EOMI, Normal appearance - ENT Exam ENT Exam: Mucous Membranes Moist, Normal Exam Additional comments: NGT in right nare - Neck Exam Neck Exam: Normal Inspection - Respiratory Exam Respiratory Exam: Clear to Ausculation Bilateral, NORMAL BREATHING PATTERN - Cardiovascular Exam Cardiovascular Exam: REGULAR RHYTHM, +S1, +S2 - GI/Abdominal Exam GI & Abdominal Exam: Soft, Tenderness (mild diffuse), Normal Bowel Sounds. absent: Distended, Guarding, Rebound Additional comments: midline surgical scar covered in dressing, gastrostomy tube in place on left side - Rectal Exam Rectal Exam: Deferred - Extremities Exam Extremities Exam: Normal Capillary Refill, Normal Inspection. absent: Pedal Edema - Back Exam Back Exam: NORMAL INSPECTION - Neurological Exam Neurological Exam: Alert, Awake, Oriented x3 - Psychiatric Exam Psychiatric exam: Normal Affect, Normal Mood - Skin Skin Exam: Dry, Intact, Normal Color, Warm Assessment and Plan - Assessment and Plan (Free Text) Assessment: Patient is a 37 yo female with a history of gastric bypass in 2013 who presented with severe abdominal pain. She was found to have bowel ischemia 2/2 internal hernia. Patient underwent ex lap on 05/14 and again on 05/16. She will need a repeat surgery 4-6 weeks from the first. She currently has an NGT and is utilizing a G tube for nutrition/meds. Plan: Ischemic bowel disease- 2/2 to internal hernias producing bowel obstruction - Surgery consulted (Dr. Harley- Mack jean baptiste, Dr. Samara Denise)- preoperative/intraoperative/postoperative management per surgery - GI consulted (Dr. Alvarado) - ID consulted (Dr. Rivera) - CXR (05/14/18): no infiltrate, pleural effusion, or pneumothorax b/l. Diminished inspiratory volume question. No acute cardiovascular disease. - Lactate: 3.6 (prior OR)-->2.4 (post OR)-->2.3-->1.5-->1.6-->0.9 - Initially stool occult blood positive- patient denies bloody BMs presently , Hgb stable - Patient required emergent surgical intervention on 05/14/18 and transferred to ICU. Patient had a second surgery on 05/16/18. - Per operative note (05/14/18): Diagnostic laparoscopy, Exploratory laparotomy, Reduction of internal hernia, Lysis of adhesions, Drainage of abdominal collections, temporary abdominal closure, EGD. Ischemia of yenni limb, internal hernia. [place] drain stitched to distal common limb - Per ICU evaluation noted: Patient underwent emergency laparotomy for possible ischemic bowel. Patient had GI bleed. In the operating room patient underwent extensive exploratory laparotomy. Significant gangrene of the small bowel noted. Hernia was identified, which was reduced. After that the significant improvement in the vasculature noted. - Per operative note (05/16/18): Re-exploration, Small bowel resection of ileum, small bowel resection of Yenni limb with gastrojejunostomy, reversal of bypass, primary anastomosis of ileum-ileum, ileum-ileum, and ileum- jejunum, Gastrostomy tube in bypassed stomach, EGD - Per surgery, monitor for abdominal compartment syndrome - Will need f/u surgery in 4-6 weeks to restore GI - Patient extubated 05/16/18 - Current drains includ: NGT Tube, gastrostomy tube, left min removed , right min removed 05/23/18 - GI series w/ small bowel: no evidence of postsurgical leak - Current IV abx: Flagyl 500mg IVPB Q8H (active since 05/15/18) Meropenem 1 gm IVPB Q8H (active since 05/15/18) Fluconazole 200 mg IV Q24H (active since 05/22/18) - Cultures: Peritoneal Fluid (05/14/18): Pseudomonas Aeruginosa sensitive to Meropenem Wound Culture (05/23/18): Yudith albicans Blood culture (05/15/18): no growth Blood culture (05/22/18): no growth >4 days Urine culture (05/22/18) : no growth - Tylenol 975 mg liq q8hrs - Dilaudid 1.5 mg IV q3hrs PRN Small bowel obstruction- 2/2 to internal hernia - Pre-op CT A/P (05/13/18): Writhing appearance of mesentric vessels. Mesentric edema. No evidence of bowel obstruction. Whirling appearance of mesentric vessels is nonspecific. Prominent mesentric lymph nodes. Mesentric edema. - GI series w/ small bowel (05/24/18): no evidence of postsurgical leak Leukocytosis- likely 2/2 to ischemic bowel 2/2 to small bowel obstruction and surgeries - Procalcitonin: 0.44 - Current IV abx: Flagyl 500mg IVPB Q8H (active since 05/15/18) Meropenem 1 gm IVPB Q8H (active since 05/15/18) Fluconazole 200 mg IV Q24H (active since 05/22/18) - Cultures: Peritoneal Fluid (05/14/18): Pseudomonas Aeruginosa sensitive to Meropenem Wound Culture (05/23/18): Yudith albicans Blood culture (05/15/18): no growth Blood culture (05/22/18): no growth >4 days Urine culture (05/22/18) : no growth Anemia, acute, stable- pt denies blood in stool - Hgb 05/26: 8.2 - Patient received a total of 2 PRBC and 4 FFP Tachycardia, persistent- possibly etiologies include pain, infection, anxiety - She is being treated for Left G Tube fluid infection. She has been started on Ativan PRN. She has Dialuadid on board to be used PRN - Metoprolol Tartrate 25 mg NG Q12H with holding parmeters (started on ) Diarrhea, acute, improving - Stool O&P (05/25/18): negative - C. Diff (05/22/18): negative - C. Diff (05/24/18): negative - Stool leukocytes (05/25/18): negative Thombocytosis- suspect reactive - Plt 05/26: 722 Anxiety - Patient was taking Xanax for anxiety noted in prior note - Ativan 0.5 mg IV Q8H PRN Hx of Obesity, resolved- s/p gastric bypass surgery in 2013 History of Asthma- patient not in acute exacerbation - Atrovent Q6H T2DM, controlled - From prior note: Admittedly non-compliant - has not taken Januvia for one year - Accuchecks Q6H - Hypoglycemic protocol - HbA1c 5.8 - History of gastric bypass surgery Hypercholesterolemia - From prior note: Pt not taking meds - LDL 38, HDL 14, Chol 104, TG 226 - History of gastric bypass surgery Hx of HTN- since gastric bypass has not taken meds Hx of Hypothyroidism - From prior note: Pt admits non-compliance Hx of KEM- 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 and from prior note from last hospitalization Nicotine use disorder - From prior note: 1ppd x 20 yrs, 1/2 ppd x 3 yrs - Nicoderm 1 patch TD QD Hydrocortisone 1% Cream topical TID for Right Upper Inner Arm macular rash- likely 2/2 to blood pressure cuff Vitamin A&D topical q8hrs PRN for dry lips Saliva substitute q6hrs PRN for dry mouth IVF: not indicated VTE ppx: Lovenox 40 mg SC daily GI ppx: Protonix 40 mg IV BID Diet: complete bowel rest, feeds via gastrostomy Code status: full code
[2018-05-26] MEDS: Enoxaparin 40 mg Syringe SC SCH (09:34)
[2018-05-26] MEDS: Lactobacillus Acidophilus 500 MU Cap PEG SCH ×2 (09:34→17:31)
[2018-05-26] MEDS: Hydrocortisone 1% Cream (30 GM) TOP SCH ×2 (09:41→14:57)
--- NOTE | 2018-05-26 09:58 | RAD ---
Date of service: 05/26/2018 HISTORY: f/u COMPARISON: 05/24/2008 FINDINGS: LUNGS: The right basal discoid atelectasis and or scarring is as before. No interval progressive consolidation seen. The prior nodular opacity projecting of the left lung base is no longer seen in this position. On this exam, it appears to project below the left hemidiaphragm ; per the CT abdomen and pelvic 05/21/2018 study- a large bone island within the anterior left 6th rib is its apparent origin PLEURA: Possible trace costophrenic angle pleural thickening and/or trace effusions here -shallow inspiration accentuating this. No worsening or more significant appearing pleural effusions appreciated. CARDIOVASCULAR: Normal. No pulmonary venous significant appearing congestion appreciated OSSEOUS STRUCTURES: Thoracic spondylosis. VISUALIZED UPPER ABDOMEN: Surgical changes GE junction NG tube tip appears in distal esophagus. Correlate clinically -surgical are clips are seen just distal to this OTHER FINDINGS: Right internal jugular vein catheter tip in cavoatrial junction. IMPRESSION: No interval cardiopulmonary pathology noted findings referenced above NG tube tip in distal esophagus. Distal to this are postsurgical changes near GE junction gastric fundus. Clinical correlation with the intention of NG tube tip placement postsurgical patient is advised. Right internal jugular vein catheter tip as above.
[2018-05-26] MEDS ORDERED: [UNRECOGNIZED DRUG - NUTRITION] IV SCH (10:15)
--- NOTE | 2018-05-26 10:19 | CP.PCM.PN ---
Subjective - Date & Time of Evaluation Date of Evaluation: 05/26/18 Time of Evaluation: 07:00 - Subjective Subjective: GENERAL SURGERY PROGRESS NOTE FOR DR. ALAMO (covering for Dr. Haas) Patient seen and examined at bedside. She was transferred from ICU to the floor yesterday. She complains of pain all over, same as before. Denies nausea or vomiting. Continues to have diarrhea but states that it is improved since starting the lactobacillus. Ambulated with PT yesterday. Objective - Vital Signs/Intake and Output Vital Signs (last 24 hours): Temp Pulse Resp BP Pulse Ox 98.3 F 130 H 18 122/81 98 05/26/18 07:15 05/26/18 07:15 05/26/18 07:15 05/26/18 09:40 05/26/18 07:15 Intake and Output: 05/26/18 05/26/18 06:59 18:59 Intake Total 1030 Output Total 500 Balance 530 - Medications Medications: Current Medications Acetaminophen (Tylenol 650mg/20.3ml Solution Ud) 975 mg GT Q8 [facility] Last Admin: 05/26/18 05:19 Dose: 975 mg Dextrose (Dextrose 50% Inj) 0 ml IV STAT PRN; Protocol PRN Reason: Hypoglycemia Protocol Last Admin: 05/16/18 23:40 Dose: 50 ml Dextrose (Glutose 15) 0 gm PO ONCE PRN; Protocol PRN Reason: Hypoglycemia Protocol Enoxaparin Sodium (Lovenox) 40 mg SC DAILY [facility] Last Admin: 05/26/18 09:34 Dose: 40 mg Glucagon (Glucagen Diagnostic Kit) 0 mg IM STAT PRN; Protocol PRN Reason: Hypoglycemia Protocol Hydrocortisone (Cortizone 1% Cream) 0 gm TOP TID [facility] Last Admin: 05/26/18 09:41 Dose: 1 applic Hydromorphone HCl (Dilaudid) 1.5 mg IVP Q3 PRN PRN Reason: Pain, SEVERE (8-10) Last Admin: 05/26/18 07:52 Dose: 1.5 mg Dextrose (Dextrose 5% In Water 1000 Ml) 1,000 mls @ 0 mls/hr IV .Q0M PRN; Protocol; Per Protocol PRN Reason: Hypoglycemia Protocol Metronidazole (Flagyl) 500 mg in 100 mls @ 100 mls/hr IVPB Q8H [facility] PRN Reason: Protocol Last Admin: 05/26/18 04:28 Dose: 100 mls/hr Meropenem 1 gm/ Sodium (Chloride) 100 mls @ 100 mls/hr IVPB Q8H [facility] PRN Reason: Protocol Last Admin: 05/26/18 02:00 Dose: 100 mls/hr Fluconazole 100 mg/ (Miscellaneous) 50 mls @ 100 mls/hr IVPB Q24H [facility] PRN Reason: Protocol Last Admin: 05/25/18 13:01 Dose: 100 mls/hr Potassium Chloride 20 meq/Chromium/Copper/Manganese/Seleni/Zn 1 ml/ Insulin Human Regular 10 unit/ Heparin Sodium (Porcine) 1,000 units/Amino Acids/ Electrolytes/Dextrose 1,012.1 mls @ 63 mls/hr IV .Q16H4M [facility] Stop: 05/26/18 17:59 Last Admin: 05/26/18 09:44 Dose: 63 mls/hr Insulin Human Regular (Novolin R) 0 unit SC Q6 [facility] PRN Reason: Protocol Last Admin: 05/26/18 06:41 Dose: 1 unit Ipratropium [place] (Atrovent) 0.5 mg IH RQ6 [facility] Last Admin: 05/26/18 06:40 Dose: 0.5 mg Lactobacillus Acidophilus (Bacid Acidophilus) 1 cap PEG BID [facility] Last Admin: 05/26/18 09:34 Dose: 1 cap Lorazepam (Ativan) 0.5 mg IVP Q8H PRN PRN Reason: Anxiety Last Admin: 05/26/18 04:22 Dose: 0.5 mg Metoprolol Tartrate (Lopressor) 25 mg NG BID [facility] Last Admin: 05/26/18 09:40 Dose: 25 mg Nicotine (Nicoderm Cq) 1 patch TD DAILY [facility] Last Admin: 05/26/18 09:41 Dose: 1 patch Pantoprazole Sodium (Protonix Inj) 40 mg IVP DAILY [facility] Last Admin: 05/26/18 09:34 Dose: 40 mg Saliva Substitute (Mouth Kote 236 Ml) 0 ml MM Q6 PRN PRN Reason: Dry mouth Vitamin A (Vitamin A & D Oint Ud Foilpak) 1 ea TOP Q8 PRN PRN Reason: dry lips Last Admin: 05/20/18 11:10 Dose: 1 ea - Labs Labs: 05/26/18 06:32 05/26/18 06:32 PT 16.0 SECONDS (9.7-12.2) H 05/26/18 06:32 INR 1.5 05/26/18 06:32 APTT 33 SECONDS (21-34) 05/25/18 06:16 - Constitutional Appears: Well, Non-toxic, No Acute Distress - Head Exam Head Exam: ATRAUMATIC, NORMAL INSPECTION - Eye Exam Eye Exam: EOMI, Normal appearance - Respiratory Exam Respiratory Exam: NORMAL BREATHING PATTERN. absent: Respiratory Distress - Cardiovascular Exam Cardiovascular Exam: Tachycardia - GI/Abdominal Exam GI & Abdominal Exam: Soft, Tenderness (mild tenderness around incision site). absent: Distended, Firm, Guarding, Rigid, Rebound Additional comments: NG tube and Gastrostomy tube in place Midline incision with intermittent sutures and packing in between - Neurological Exam Neurological Exam: Alert, Awake, Oriented x3 - Psychiatric Exam Psychiatric exam: Normal Affect, Normal Mood - Skin Skin Exam: Dry, Normal Color, Warm Assessment and Plan - Assessment and Plan (Free Text) Assessment: 37yo F with PMHx of [id number]-Y gastric bypass in 2013 now with bowel ischemia secondary to internal hernia. POD#12 s/p Exploratory laparotomy, Reduction of internal hernia, DANNI, Drainage of abdominal collections, temporary abdominal closure (fascia left open), EGD. POD#9 s/p Re-exploration, Small bowel resection of ileum, small bowel resection of Yenni limb including previous gastrojejunostomy, reversal of bypass, primary anastomosis of ileum-ileum, ileum-ileum, and ileum-jejunum, Gastrostomy tube in bypassed stomach, EGD - Sky drains both removed - Continue strict NPO w/ NG tube - On tube feeds @30cc via Gastrostomy tube - On TPN - On Tylenol Q6 + Dilaudid for pain control - Continue lactobacillus - Cx from G tube site: yeast, pt on fluconazole - Will need surgery in 4 weeks to restore GI continuity - Dressing changed, packed in between sutures - Encouraged OOB, ambulation and IS use. - Continue PT - Discussed plan with Dr. Mack Dailey PGY-4
[2018-05-26] MEDS: Fluconazole IV 200mg/100 ml NS 100 MG in Premixed IV 1 EA IVPB SCH (14:21)
[2018-05-26] MEDS ORDERED: Hydrocortisone 1% Cream (30 GM) TOP PRN (17:27)
[2018-05-26] MEDS ORDERED: TPN IV ONE (18:00)
[2018-05-26] MEDS ORDERED: Fat Emulsion 20% IV 500 ML IV SCH (18:00)
[2018-05-26 18:34] LABS: FOLATE 7.5 ng/mL
--- NOTE | 2018-05-26 21:17 | CP.PCM.PN ---
Subjective - Date & Time of Evaluation Date of Evaluation: 05/26/18 Time of Evaluation: 17:15 - Subjective Subjective: dictated Objective - Vital Signs/Intake and Output Vital Signs (last 24 hours): Temp Pulse Resp BP Pulse Ox 99.1 F 128 H 20 127/83 97 05/26/18 16:00 05/26/18 16:00 05/26/18 16:00 05/26/18 17:31 05/26/18 16:00 Intake and Output: 05/26/18 05/27/18 18:59 06:59 Intake Total 490 Output Total 1000 Balance -510 - Medications Medications: Current Medications Acetaminophen (Tylenol 650mg/20.3ml Solution Ud) 975 mg GT Q8 [facility] Last Admin: 05/26/18 14:59 Dose: 975 mg Dextrose (Dextrose 50% Inj) 0 ml IV STAT PRN; Protocol PRN Reason: Hypoglycemia Protocol Last Admin: 05/16/18 23:40 Dose: 50 ml Dextrose (Glutose 15) 0 gm PO ONCE PRN; Protocol PRN Reason: Hypoglycemia Protocol Enoxaparin Sodium (Lovenox) 40 mg SC DAILY [facility] Glucagon (Glucagen Diagnostic Kit) 0 mg IM STAT PRN; Protocol PRN Reason: Hypoglycemia Protocol Hydrocortisone (Cortizone 1% Cream) 0 gm TOP TID PRN PRN Reason: Rash Hydromorphone HCl (Dilaudid) 1.5 mg IVP Q3 PRN PRN Reason: Pain, SEVERE (8-10) Last Admin: 05/26/18 20:36 Dose: 1.5 mg Dextrose (Dextrose 5% In Water 1000 Ml) 1,000 mls @ 0 mls/hr IV .Q0M PRN; Protocol; Per Protocol PRN Reason: Hypoglycemia Protocol Metronidazole (Flagyl) 500 mg in 100 mls @ 100 mls/hr IVPB Q8H [facility] PRN Reason: Protocol Last Admin: 05/26/18 19:34 Dose: 100 mls/hr Meropenem 1 gm/ Sodium (Chloride) 100 mls @ 100 mls/hr IVPB Q8H [facility] PRN Reason: Protocol Last Admin: 05/26/18 19:31 Dose: 100 mls/hr Fluconazole 100 mg/ (Miscellaneous) 50 mls @ 100 mls/hr IVPB Q24H [facility] PRN Reason: Protocol Last Admin: 05/26/18 14:21 Dose: 100 mls/hr Potassium Chloride 20 meq/Chromium/Copper/Manganese/Seleni/Zn 1 ml/ Insulin Human Regular 10 unit/ Heparin Sodium (Porcine) 1,000 units/Multivitamins/ Vitamin C 10 ml/Amino Acids/Electrolytes/Dextrose 1,022.1 mls @ 63 mls/hr IV .[id number] [facility] Stop: 05/27/18 10:13 Last Admin: 05/26/18 18:30 Dose: 63 mls/hr Potassium Chloride 20 meq/Chromium/Copper/Manganese/Seleni/Zn 1 ml/ Insulin Human Regular 10 unit/ Heparin Sodium (Porcine) 1,000 units/Amino Acids/ Electrolytes/Dextrose 1,012.1 mls @ 63 mls/hr IV .Q16H4M [facility] Stop: 05/27/18 17:59 Fat Emulsion Intravenous (Intralipid 20%) 500 mls @ 42 mls/hr IV QOD@1800 [facility] Last Admin: 05/26/18 19:00 Dose: 42 mls/hr Insulin Human Regular (Novolin R) 0 unit SC Q6 [facility] PRN Reason: Protocol Last Admin: 05/26/18 17:32 Dose: 1 unit Ipratropium [place] (Atrovent) 0.5 mg IH RQ6 [facility] Last Admin: 05/26/18 19:16 Dose: 0.5 mg Lactobacillus Acidophilus (Bacid Acidophilus) 1 cap PEG BID [facility] Last Admin: 05/26/18 17:31 Dose: 1 cap Lorazepam (Ativan) 0.5 mg IVP Q8H PRN PRN Reason: Anxiety Last Admin: 05/26/18 20:39 Dose: 0.5 mg Metoprolol Tartrate (Lopressor) 25 mg NG BID [facility] Last Admin: 05/26/18 17:31 Dose: 25 mg Nicotine (Nicoderm Cq) 1 patch TD DAILY [facility] Last Admin: 05/26/18 09:41 Dose: 1 patch Pantoprazole Sodium (Protonix Inj) 40 mg IVP DAILY [facility] Last Admin: 05/26/18 09:34 Dose: 40 mg Saliva Substitute (Mouth Kote 236 Ml) 0 ml MM Q6 PRN PRN Reason: Dry mouth Vitamin A (Vitamin A & D Oint Ud Foilpak) 1 ea TOP Q8 PRN PRN Reason: dry lips Last Admin: 05/20/18 11:10 Dose: 1 ea - Labs Labs: 05/26/18 06:32 05/26/18 06:32 PT 16.0 SECONDS (9.7-12.2) H 05/26/18 06:32 INR 1.5 05/26/18 06:32 APTT 33 SECONDS (21-34) 05/25/18 06:16
[2018-05-27] MEDS ORDERED: Metoprolol 1 mg/ml Inj IVP ONE (00:36)
[2018-05-27] MEDS: Ipratropium 0.02% Inhal Soln (0.5 mg/2.5 ml) UD IH SCH ×4 (01:11→19:27)
[2018-05-27] MEDS: Meropenem 1 GM in Sodium Chloride 0.9% 100 ML IVPB SCH ×2 (02:40→11:20)
--- NOTE | 2018-05-27 02:48 | PN ---
Copied To: Guero Rivera MD Attending MD: Guero Rivera MD DATE: 05/26/2018 PHYSICAL EXAMINATION: VITAL SIGNS: She is afebrile. T-max was 99.1, blood pressure was 127/83, heart rate is 128, this is always tachycardic as an NG-tube was clamped today, but she had suction from there. LUNGS: Clear. HEART: S1, S2 regular. ABDOMEN: Has surgical scar. LABORATORY DATA: Her white count today was 18.1, hemoglobin 8.2, hematocrit 24.4, platelet count still remains 722. She had ischemic bowel and wound culture which was at the gastrostomy site, catheter showed Yudith albicans and she has been on Diflucan. She still has a triple-lumen on the right side, in her right IJ looks like and she is on Lovenox, fluconazole, hydrocortisone, hydromorphone, lactobacillus, lorazepam, metoprolol. She still remains on Flagyl and she was on Merrem. I have to see if she is still on Merrem or not, and still on meropenem. So we are waiting to see what is the next move of the surgery and she says she will be along here and I want to see the surgical note by Dr. Giron. The patient is status post exploratory laparotomy, reduction of internal hernia, drainage of abdominal collections, temporary abdominal closure. She will have 2 pins that was her first surgery and then she had a re-exploration and has a gastrostomy tube vein bypass in stomach and EGD was done. She has anastomosis of ileum of ileum to ileum, and ileum to duodenum. She has a very complicated surgery and we will continue antibiotics at this time and actually if the white count comes down further, I just would leave her on Diflucan and discontinue the rest of the medications, antibiotics, and monitor off antibiotics. She will be getting the other surgery done in 4 weeks. We will follow. Discuss this plan with the primary. Guero Rivera MD
[2018-05-27] MEDS: metroNIDAZOLE IV 500 mg/100 ml 500 MG/100 ML BAG IVPB SCH ×3 (04:25→22:00)
[2018-05-27] MEDS: Acetaminophen 650mg/20.3ml solution UD GT SCH ×3 (05:40→23:11)
[2018-05-27] MEDS: (Novolin R) Insulin Human Regular 100 units/ml vial SC SCH ×3 (06:15→19:46)
--- NOTE | 2018-05-27 06:18 | CP.PCM.PN ---
<Yanelis Hudson - Last Filed: 05/27/18 18:41> Subjective - Date & Time of Evaluation Date of Evaluation: 05/27/18 Time of Evaluation: 09:00 - Subjective Subjective: PGY-1 Yanelis Hudson D.O. Medicine progress note for Dr. Turk's service: Patient is seen and examined this morning. She is resting comfortably. She is still complaining of watery diarrhea. She denies N/V. She is also complaining of a new lesion on her L heel. Objective - Vital Signs/Intake and Output Vital Signs (last 24 hours): Temp Pulse Resp BP Pulse Ox 99.3 F 128 H 20 115/73 97 05/27/18 04:27 05/27/18 04:27 05/27/18 04:27 05/27/18 04:27 05/27/18 04:27 Intake and Output: 05/26/18 05/27/18 18:59 06:59 Intake Total 490 972 Output Total 1000 1000 Balance -510 -28 - Medications Medications: Current Medications Acetaminophen (Tylenol 650mg/20.3ml Solution Ud) 975 mg GT Q8 KATELYN Last Admin: 05/27/18 05:40 Dose: 975 mg Dextrose (Dextrose 50% Inj) 0 ml IV STAT PRN; Protocol PRN Reason: Hypoglycemia Protocol Last Admin: 05/16/18 23:40 Dose: 50 ml Dextrose (Glutose 15) 0 gm PO ONCE PRN; Protocol PRN Reason: Hypoglycemia Protocol Enoxaparin Sodium (Lovenox) 40 mg SC DAILY KATELYN Glucagon (Glucagen Diagnostic Kit) 0 mg IM STAT PRN; Protocol PRN Reason: Hypoglycemia Protocol Hydrocortisone (Cortizone 1% Cream) 0 gm TOP TID PRN PRN Reason: Rash Hydromorphone HCl (Dilaudid) 1.5 mg IVP Q3 PRN PRN Reason: Pain, SEVERE (8-10) Last Admin: 05/27/18 05:39 Dose: 1.5 mg Dextrose (Dextrose 5% In Water 1000 Ml) 1,000 mls @ 0 mls/hr IV .Q0M PRN; Protocol; Per Protocol PRN Reason: Hypoglycemia Protocol Metronidazole (Flagyl) 500 mg in 100 mls @ 100 mls/hr IVPB Q8H KATELYN PRN Reason: Protocol Last Admin: 05/27/18 04:25 Dose: 100 mls/hr Meropenem 1 gm/ Sodium (Chloride) 100 mls @ 100 mls/hr IVPB Q8H KATELYN PRN Reason: Protocol Last Admin: 05/27/18 02:40 Dose: 100 mls/hr Fluconazole 100 mg/ (Miscellaneous) 50 mls @ 100 mls/hr IVPB Q24H KATELYN PRN Reason: Protocol Last Admin: 05/26/18 14:21 Dose: 100 mls/hr Potassium Chloride 20 meq/Chromium/Copper/Manganese/Seleni/Zn 1 ml/ Insulin Human Regular 10 unit/ Heparin Sodium (Porcine) 1,000 units/Multivitamins/ Vitamin C 10 ml/Amino Acids/Electrolytes/Dextrose 1,022.1 mls @ 63 mls/hr IV .[id number] ONE Stop: 05/27/18 10:13 Last Admin: 05/26/18 18:30 Dose: 63 mls/hr Potassium Chloride 20 meq/Chromium/Copper/Manganese/Seleni/Zn 1 ml/ Insulin Human Regular 10 unit/ Heparin Sodium (Porcine) 1,000 units/Amino Acids/ Electrolytes/Dextrose 1,012.1 mls @ 63 mls/hr IV .Q16H4M [facility] Stop: 05/27/18 17:59 Fat Emulsion Intravenous (Intralipid 20%) 500 mls @ 42 mls/hr IV QOD@1800 [facility] Last Admin: 05/26/18 19:00 Dose: 42 mls/hr Insulin Human Regular (Novolin R) 0 unit SC Q6 KATELYN PRN Reason: Protocol Last Admin: 05/27/18 06:15 Dose: 2 unit Ipratropium [place] (Atrovent) 0.5 mg IH RQ6 [facility] Last Admin: 05/27/18 01:11 Dose: 0.5 mg Lactobacillus Acidophilus (Bacid Acidophilus) 1 cap PEG BID [facility] Last Admin: 05/26/18 17:31 Dose: 1 cap Lorazepam (Ativan) 0.5 mg IVP Q8H PRN PRN Reason: Anxiety Last Admin: 05/27/18 04:32 Dose: 0.5 mg Metoprolol Tartrate (Lopressor) 25 mg NG BID [facility] Last Admin: 05/26/18 17:31 Dose: 25 mg Nicotine (Nicoderm Cq) 1 patch TD DAILY [facility] Last Admin: 05/26/18 09:41 Dose: 1 patch Pantoprazole Sodium (Protonix Inj) 40 mg IVP DAILY [facility] Last Admin: 05/26/18 09:34 Dose: 40 mg Saliva Substitute (Mouth Kote 236 Ml) 0 ml MM Q6 PRN PRN Reason: Dry mouth Vitamin A (Vitamin A & D Oint Ud Foilpak) 1 ea TOP Q8 PRN PRN Reason: dry lips Last Admin: 05/20/18 11:10 Dose: 1 ea - Labs Labs: 05/26/18 06:32 05/26/18 06:32 PT 16.0 SECONDS (9.7-12.2) H 05/26/18 06:32 INR 1.5 05/26/18 06:32 APTT 33 SECONDS (21-34) 05/25/18 06:16 - Constitutional Appears: Well, Non-toxic, No Acute Distress - Head Exam Head Exam: ATRAUMATIC, NORMAL INSPECTION, NORMOCEPHALIC - Eye Exam Eye Exam: EOMI, Normal appearance - ENT Exam ENT Exam: Mucous Membranes Moist, Normal Exam Additional comments: NGT in R nare - Neck Exam Neck Exam: Normal Inspection - Respiratory Exam Respiratory Exam: Clear to Ausculation Bilateral, NORMAL BREATHING PATTERN - Cardiovascular Exam Cardiovascular Exam: REGULAR RHYTHM, +S1, +S2 - GI/Abdominal Exam GI & Abdominal Exam: Soft, Tenderness, Normal Bowel Sounds Additional comments: midline surgical scar covered in dressing, gastrostomy tube in place on left side - Rectal Exam Rectal Exam: Deferred - Extremities Exam Extremities Exam: Normal Capillary Refill, Normal Inspection - Back Exam Back Exam: NORMAL INSPECTION - Neurological Exam Neurological Exam: Alert, Awake, CN II-XII Intact, Oriented x3 - Psychiatric Exam Psychiatric exam: Normal Affect, Normal Mood - Skin Skin Exam: Dry, Intact, Normal Color, Warm Additional comments: L heel excoriated lesion 1 cm Assessment and Plan - Assessment and Plan (Free Text) Assessment: Patient is a 37 yo female with a history of gastric bypass in 2013 who presented with severe abdominal pain. She was found to have bowel ischemia 2/2 internal hernia. Patient underwent ex lap on 05/14 and again on 05/16. She will need a repeat surgery 4-6 weeks from the first. She currently has an NGT and is utilizing a G tube for nutrition/meds. Plan: Ischemic bowel disease- 2/2 to internal hernias producing bowel obstruction - CXR (05/14/18): no infiltrate, pleural effusion, or pneumothorax b/l. Diminished inspiratory volume question. No acute cardiovascular disease. - Lactate: 3.6 (prior OR)-->2.4 (post OR)-->2.3-->1.5-->1.6-->0.9 - Initially stool occult blood positive- patient denies bloody BMs presently , Hgb stable - Patient required emergent surgical intervention on 05/14/18 and transferred to ICU. Patient had a second surgery on 05/16/18. - Per operative note (05/14/18): Diagnostic laparoscopy, Exploratory laparotomy, Reduction of internal hernia, Lysis of adhesions, Drainage of abdominal collections, temporary abdominal closure, EGD. Ischemia of yenni limb, internal hernia. Roma drain stitched to distal common limb - Per ICU evaluation noted: Patient underwent emergency laparotomy for possible ischemic bowel. Patient had GI bleed. In the operating room patient underwent extensive exploratory laparotomy. Significant gangrene of the small bowel noted. Hernia was identified, which was reduced. After that the significant improvement in the vasculature noted. - Per operative note (05/16/18): Re-exploration, Small bowel resection of ileum, small bowel resection of Yenni limb with gastrojejunostomy, reversal of bypass, primary anastomosis of ileum-ileum, ileum-ileum, and ileum- jejunum, Gastrostomy tube in bypassed stomach, EGD - Per surgery, monitor for abdominal compartment syndrome - Will need f/u surgery in 4-6 weeks to restore GI - Patient extubated 05/16/18 - Current drains include: NGT, gastrostomy tube, left min removed 05/25/18, right min removed 05/23/18 - GI series w/ small bowel (05/24/18): no evidence of postsurgical leak - Discontinued Flagyl 500mg IVPB Q8H (active since 05/15/18-05/27/18) - Discontinued Meropenem 1 gm IVPB Q8H (active since 05/15/18-05/27/18) - Fluconazole 200 mg IV Q24H (active since 05/22/18) - Cultures: Peritoneal Fluid (05/14/18): Pseudomonas Aeruginosa sensitive to Meropenem Wound Culture (05/23/18): Yudith albicans Blood culture (05/15/18, 05/22/18): no growth Urine culture (05/22/18): no growth - Tylenol 975 mg liq q8hrs - Dilaudid 1.5 mg IV q3hrs PRN - Surgery consulted (Dr. Harley- Mack covering, Dr. Samara Denise)- preoperative/intraoperative/postoperative management per surgery, repeat surgery in mid June - GI consulted (Dr. Alvarado) - ID consulted (Dr. Rivera)- d/c abx, continue Diflucan - PT consulted Small bowel obstruction- 2/2 to internal hernia - Pre-op CT A/P (05/13/18): Writhing appearance of mesentric vessels. Mesentric edema. No evidence of bowel obstruction. Whirling appearance of mesentric vessels is nonspecific. Prominent mesentric lymph nodes. Mesentric edema. - GI series w/ small bowel (05/24/18): no evidence of postsurgical leak Leukocytosis, improving- likely 2/2 to ischemic bowel 2/2 to small bowel obstruction and surgeries - Procalcitonin: 0.44 - Cultures: Peritoneal Fluid (05/14/18): Pseudomonas Aeruginosa sensitive to Meropenem Wound Culture (05/23/18): Yudith albicans Blood culture (05/15/18, 05/22/18): no growth Urine culture (05/22/18): no growth Anemia, acute, stable- pt denies blood in stool - Hgb 05/27: 8.4 - Patient received a total of 2 PRBC and 4 FFP - Iron studies pending Tachycardia, persistent- possibly etiologies include pain, infection, anxiety - She is being treated for Left G Tube fluid infection. She has been started on Ativan PRN. She has Dialuadid on board to be used PRN. - Increase Metoprolol Tartrate to 50 mg NG BID with holding parameters Diarrhea, acute - Stool O&P (05/25/18): negative - C. Diff (05/22/18): negative - C. Diff (05/24/18): negative - Stool leukocytes (05/25/18): negative Thombocytosis, improving- suspect reactive - Plt 05/26: 722->620 Anxiety - Patient was taking Xanax for anxiety noted in prior note - Ativan 0.5 mg IV Q8H PRN Hx of Obesity, resolved- s/p gastric bypass surgery in 2013 History of Asthma- patient not in acute exacerbation - Atrovent Q6H T2DM, controlled - From prior note: Admittedly non-compliant - has not taken Januvia for one year - Accuchecks Q6H - Hypoglycemic protocol - HbA1c 5.8 - History of gastric bypass surgery Hypercholesterolemia - From prior note: Pt not taking meds - LDL 38, HDL 14, Chol 104, TG 226 - History of gastric bypass surgery Hx of HTN- since gastric bypass has not taken meds Hx of Hypothyroidism - From prior note: Pt admits non-compliance Hx of KEM- 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 and from prior note from last hospitalization Nicotine use disorder - From prior note: 1ppd x 20 yrs, 1/2 ppd x 3 yrs - Nicoderm 1 patch TD QD Monitor lesion on L heel Hydrocortisone 1% Cream topical TID for Right Upper Inner Arm macular rash- likely 2/2 to blood pressure cuff Vitamin A&D topical q8hrs PRN for dry lips Saliva substitute q6hrs PRN for dry mouth IVF: not indicated VTE ppx: Lovenox 40 mg SC daily, SCDs GI ppx: Protonix 40 mg IV BID, Florastor BID Diet: complete bowel rest, feeds via gastrostomy Code status: full code <Doretha Turk V - Last Filed: 05/28/18 18:54> Objective - Vital Signs/Intake and Output Vital Signs (last 24 hours): Temp Pulse Resp BP Pulse Ox 97.3 F L 129 H 22 115/78 98 05/28/18 15:00 05/28/18 17:00 05/28/18 15:00 05/28/18 15:00 05/28/18 15:00 Intake and Output: 05/28/18 05/28/18 06:59 18:59 Intake Total 760 770 Output Total 1500 1500 Balance -740 -730 - Medications Medications: Current Medications Acetaminophen (Tylenol 650mg/20.3ml Solution Ud) 975 mg GT Q8 KATELYN Last Admin: 05/28/18 14:24 Dose: 975 mg Dextrose (Dextrose 50% Inj) 0 ml IV STAT PRN; Protocol PRN Reason: Hypoglycemia Protocol Last Admin: 05/16/18 23:40 Dose: 50 ml Dextrose (Glutose 15) 0 gm PO ONCE PRN; Protocol PRN Reason: Hypoglycemia Protocol Enoxaparin Sodium (Lovenox) 40 mg SC DAILY [facility] Last Admin: 05/28/18 09:01 Dose: 40 mg Fentanyl (Duragesic) 1 patch TD Q72H KATELYN Last Admin: 05/28/18 13:49 Dose: 1 patch Glucagon (Glucagen Diagnostic Kit) 0 mg IM STAT PRN; Protocol PRN Reason: Hypoglycemia Protocol Hydrocortisone (Cortizone 1% Cream) 0 gm TOP TID PRN PRN Reason: Rash Hydromorphone HCl (Dilaudid) 1 mg IVP Q3 PRN PRN Reason: Pain, SEVERE (8-10) Last Admin: 05/28/18 16:01 Dose: 1 mg Dextrose (Dextrose 5% In Water 1000 Ml) 1,000 mls @ 0 mls/hr IV .Q0M PRN; Protocol; Per Protocol PRN Reason: Hypoglycemia Protocol Metronidazole (Flagyl) 500 mg in 100 mls @ 100 mls/hr IVPB Q8H KATELYN PRN Reason: Protocol Last Admin: 05/28/18 11:40 Dose: 100 mls/hr Fluconazole 100 mg/ (Miscellaneous) 50 mls @ 100 mls/hr IVPB Q24H KATELYN PRN Reason: Protocol Last Admin: 05/28/18 13:11 Dose: 100 mls/hr Fat Emulsion Intravenous (Intralipid 20%) 500 mls @ 42 mls/hr IV QOD@1800 KATELYN Last Admin: 05/26/18 19:00 Dose: 42 mls/hr Insulin Human Regular (Novolin R) 0 unit SC Q6 KATELYN PRN Reason: Protocol Last Admin: 05/28/18 12:54 Dose: 1 unit Ipratropium [place] (Atrovent) 0.5 mg IH RQ6 [facility] Last Admin: 05/28/18 13:37 Dose: 0.5 mg Lactobacillus Acidophilus (Bacid Acidophilus) 1 cap PEG BID [facility] Last Admin: 05/28/18 09:00 Dose: 1 cap Loperamide HCl (Imodium) 1 mg PO Q2H PRN PRN Reason: Diarrhea Last Admin: 05/28/18 14:25 Dose: 1 mg Lorazepam (Ativan) 0.5 mg IVP Q8H PRN PRN Reason: Anxiety Last Admin: 05/28/18 13:09 Dose: 0.5 mg Metoprolol Tartrate (Lopressor) 50 mg NG BID [facility] Last Admin: 05/28/18 09:02 Dose: 50 mg Nicotine (Nicoderm Cq) 1 patch TD DAILY [facility] Last Admin: 05/28/18 09:00 Dose: 1 patch Pantoprazole Sodium (Protonix Inj) 40 mg IVP DAILY [facility] Last Admin: 05/28/18 09:02 Dose: 40 mg Saliva Substitute (Mouth Kote 236 Ml) 0 ml MM Q6 PRN PRN Reason: Dry mouth Vitamin A (Vitamin A & D Oint Ud Foilpak) 1 ea TOP Q8 PRN PRN Reason: dry lips Last Admin: 05/20/18 11:10 Dose: 1 ea - Labs Labs: 05/28/18 06:36 05/28/18 06:36 PT 16.0 SECONDS (9.7-12.2) H 05/26/18 06:32 INR 1.5 05/26/18 06:32 APTT 33 SECONDS (21-34) 05/25/18 06:16 Assessment and Plan (1) Ischemic bowel disease Status: Acute (2) Obesity (BMI 30-39.9) Status: Acute (3) Small bowel obstruction Status: Acute (4) Prophylactic measure Status: Acute Attending/Attestation - Attestation I have personally seen and examined this patient.: Yes I have fully participated in the care of the patient.: Yes I have reviewed all pertinent clinical information, including history, physical exam and plan: Yes Notes (Text): This is late computer entry for 05/27/18. Patient seen, examined and case discussed with medical educator. Patient seen this morning during rounds. Patient has blood blister over the left upper extremity. Patient is very comfortable at bedside. Patient reports diarrhea. Patient is tachycardic: will increase Lopresspr 50mg GT BID. Abdomen: soft, nontender, dressing noted mid-line. both right and left min drains are removed. and tylenol changed to liquid from rectal from surgery. Patient is currently on Flagyl and Diflucan. Monitor white count. (1) Ischemic bowel disease Assessment & Plan: * Dr. Harley (surgery) on the case-->help appreciated * Dr. Giron covering. * Dr. Samara Denise (Surgery) on the case-->help appreciated * Preoperative/intraoperative/postoperative management per surgery * Dr. Alvarado (GI) on the case-->help appreciated * Dr. Rivera (ID) on the case-->help appreciated * Chest xray (05/14/18): no infiltrate, pleural effusion, or pneumothorax b/l. Diminished inspiratory volume question. No acute cardiovascular disease. * Lactic: 3.6 (prior OR)-->2.4 (post OR)-->2.3-->1.5-->1.6-->0.9 * Patient has had 2 bloody bowel movements started 05/14/18. Patient's rectal: blood. She had reported abdominal pain has worsening since night of admission. Patient required emergent surgical intervention on 05/14/18 and transferred to ICU. Patient will need a second surgery likely tomorrow on 05/16/18. * Per operative note (05/14/18): Diagnostic laparoscopy, Exploratory laparotomy, Reduction of internal hernia, Lysis of adhesions, Drainage of abdominal collections, temporary abdominal closure, EGD * Ischemia of yenni limb, internal hernia. Roma drain stitched to distal common limb * ICU evaluation noted: Patient underwent emergency laparotomy for possible ischemic bowel. Patient had GI bleed. In the operating room patient underwent extensive exploratory laparotomy. Significant gangrene of the small bowel noted. Hernia was identified, which was reduced.After that the significant improvement in the vasculature noted. * Patient underwent surgery again on 05/16/18.Re-exploration, Small bowel resection of ileum, small bowel resection of Yenni limb with gastrojejunostomy, reversal of bypass, primary anastomosis of ileum-ileum, ileum-ileum, and ileum- jejunum, Gastrostomy tube in bypassed stomach, EGD * Per surgery, monitor for abdominal compartment syndrome * Surgery has recommended for gastrograffin study to eval stomac/small bowel prior to increase feeding tube * Dressing changed, packed in between sutures * Orimev added by surgery for pain control * Will need f/u surgery in 4-6 weeks to restore GI * Patient extubated 05/16/18. Main complaint is abdominal pain, however she is quite comfortable compared to when I met her the day she required emergent surgery. * Drains included: NGT Tube, gastrostomy tube, left min removed 05/25/18; right min was removed 05/23/18 * GI series w/ small bowel: no evidence of postsurgical leak * IV abx: * Flagyl 500mg IVPB Q8H (active since 05/15/18) * Fluconazole 100mg IVPB Q24H (active 05/22/18) * Cultures: * Peritoneal Fluid : Pseudomonas Aeruginosa sensitive to Meropenem (05/15-05/27) * Wound Culture (05/23): Yudith Albican--->Diflucan since 05/22/18 * Blood culture (05/15/18): no growth after 5 days X2 * Blood culture (05/22/18): no growth after 5 days X2 * Urine culture: no growth Status: Acute (2) Small bowel obstruction Assessment & Plan: * Secondary to hernia * CT abdomen/Pelvis (05/13/18): Writhing appearance of mesentric vessels. Mesentric edema. No evidence of bowel obstruction. Whirling appearance of mesentric vessels is nonspecific. Prominent mesentric lymph nodes. Mesentric edema. (preop) * Patient has had 2 bloody bowel movements started 05/14/18. Patient's rectal: blood. She had reported abdominal pain has worsening since night of admission. Patient required emergent surgical intervention on 05/14/18 and transferred to ICU. Patient will need a second surgery likely tomorrow on 05/16/18. * Per operative note (05/14/18): Diagnostic laparoscopy, Exploratory laparotomy, Reduction of internal hernia, Lysis of adhesions, Drainage of abdominal collections, temporary abdominal closure, EGD * Ischemia of yenni limb, internal hernia. Roma drain stitched to distal common limb * ICU evaluation noted: Patient underwent emergency laparotomy for possible ischemic bowel. Patient had GI bleed. In the operating room patient underwent extensive exploratory laparotomy. Significant gangrene of the small bowel noted. Hernia was identified, which was reduced.After that the significant improvement in the vasculature noted. But there is still a segment of bowel not healthy (portion of the alimentary canal from prior gastric bypass surgery--> clarified with surgery resident), * Patient underwent surgery again on 05/16/18.Re-exploration, Small bowel resection of ileum, small bowel resection of Yenni limb with gastrojejunostomy, reversal of bypass, primary anastomosis of ileum-ileum, ileum-ileum, and ileum- jejunum, Gastrostomy tube in bypassed stomach, EGD * Per surgery, monitor for abdominal compartment syndrome * Recommend TPN. * Will need f/u surgery in 4-6 weeks to restore GI * GI series w/ small bowel: no evidence of postsurgical leak Status: Acute (3) Obesity (BMI 30-39.9) Assessment & Plan: * s/p gastric bypass surgery in 2013 * Operative note (2013): Yenni-en-Y gastric bypass surgery Status: Acute (4) Status post gastric bypass for obesity Assessment & Plan: * status post gastric bypass 2013 * Operative note (2013): Yenni-en-Y gastric bypass surgery Status: Acute (5) History of Asthma Assessment & Plan: * Patient not in acute exacerbation prior to OR * Atrovent Q6H (6) Leukocytosis Assessment & Plan: * Downtrending * Likely secondary to ischemic bowel secondary to small bowel obstruction () and had surgery (05/16/18) * Peritoneal Fluid : Pseudomonas Aeruginosa sensitive to Meropenem * Blood culture (05/15/18): no growth after 5 days X2 * Blood culture (05/22/18): no growth after 5 days X2 * Urine culture: no growth * procalcitonin: 0.44 (7) Diabetes Mellitus (Type 2); controlled Assessment & Plan: * From prior note: * Admittedly non-compliant - has not taken Januvia for one year * Accuchecks Q6H * Hypoglycemic protocol * HbA1c - 6.3 (03/10/17) * hgba1c: 02/15 * History of gastric bypass surgery (8) Hx of HTN (hypertension) Assessment & Plan: * Since Gastric Bypass has not taken meds (9) Hx of Hypothyroid Assessment & Plan: * From prior note: * Pt admits non-compliance (10) Hypercholesterolemia Assessment & Plan: * From prior note: * Pt not taking meds * LDL 138, HDL 67, Tchol 220, Trig 112 * History of gastric bypass surgery (11) Anxiety Assessment & Plan: * Patient was taking Xanax for anxiety noted in prior note (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 Assessment & Plan: * 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 and from my prior note from last hospitalization (13) Smoker Assessment & Plan: * From my prior note: 1ppd x 20 yrs, 1/2 ppd x 3 yrs * Nicoderm 1 patch TD patchy (14) Prophylactic measure Assessment & Plan: * Lovenox 40mg subqdaily for DVT ppx * Srivastava removed 05/20/18 * Wound vac removed 05/19/18 * on PPN on 05/23/18 * RIJ TLC 05/14/18 * Off pressor * Off Paralytic * Protonix 40mg IV Q12H * Extubated 05/16/18 * STRICT NPO * SCDS b/l (15) Tachycardia Assessment & Plan: * increase Lopressor 50mg NGT BID. Status: Acute Disposition: f/u white count, monitor diarrhea, patient is pending surgery in 4weeks to re-establish GI motility
[2018-05-27 06:52] LABS: BASO # 0.2 K/uL (0.0-0.2); BASO % 1.1 % (0.0-2.0); EOS # 0.6 K/uL (0.0-0.7); EOS % 3.2 % (0.0-4.0); HEMOGLOBIN 8.5 g/dL (11.0-16.0); LYMPH # 2.9 K/uL (1.0-4.3); LYMPH % 15.3 % (20.0-40.0); MEAN CELL VOLUME 86.6 fL (81.0-99.0); MEAN CORPUSCULAR HEMOGLOBIN 30.5 pg (27.0-31.0); MEAN CORPUSCULAR HGB CONC 35.2 g/dL (33.0-37.0); MONO # 1.2 K/uL (0.0-0.8); MONO % 6.1 % (0.0-10.0); NEUT # 14.3 K/uL (1.8-7.0); NEUT % 74.3 % (50.0-75.0); RBC 2.79 Mil/uL (3.80-5.20); RED CELL DISTRIBUTION WIDTH 16.6 % (11.5-14.5); WHITE BLOOD COUNT 19.2 K/uL (4.8-10.8)
[2018-05-27 07:37] LABS: ALB/GLOB RATIO 0.8 (1.0-2.1); ALBUMIN 2.8 g/dL (3.5-5.0); ALT/SGPT 22 U/L (9-52); AST/SGOT 29 U/L (14-36); BLOOD UREA NITROGEN 12 mg/dL (7-17); GFR NON-AFRICAN AMERICAN > 60
[2018-05-27] MEDS ORDERED: TPN IV SCH (10:14)
[2018-05-27] MEDS: Enoxaparin 40 mg Syringe SC SCH (11:12)
[2018-05-27] MEDS: Lactobacillus Acidophilus 500 MU Cap PEG SCH ×2 (11:33→19:47)
--- NOTE | 2018-05-27 12:24 | CP.PCM.PN ---
Subjective - Date & Time of Evaluation Date of Evaluation: 05/27/18 Time of Evaluation: 06:45 - Subjective Subjective: Patient seen and examined. No acute events over night. Abdominal packing and dressing changed. Tube feeds at goal. G tube residuals: 100cc. Objective - Vital Signs/Intake and Output Vital Signs (last 24 hours): Temp Pulse Resp BP Pulse Ox 97.9 F 136 H 18 135/69 97 05/27/18 07:00 05/27/18 07:00 05/27/18 07:00 05/27/18 11:13 05/27/18 07:00 Intake and Output: 05/27/18 05/27/18 06:59 18:59 Intake Total 2492 Output Total 1900 Balance 592 - Medications Medications: Current Medications Acetaminophen (Tylenol 650mg/20.3ml Solution Ud) 975 mg GT Q8 [facility] Last Admin: 05/27/18 05:40 Dose: 975 mg Dextrose (Dextrose 50% Inj) 0 ml IV STAT PRN; Protocol PRN Reason: Hypoglycemia Protocol Last Admin: 05/16/18 23:40 Dose: 50 ml Dextrose (Glutose 15) 0 gm PO ONCE PRN; Protocol PRN Reason: Hypoglycemia Protocol Enoxaparin Sodium (Lovenox) 40 mg SC DAILY [facility] Last Admin: 05/27/18 11:12 Dose: 40 mg Glucagon (Glucagen Diagnostic Kit) 0 mg IM STAT PRN; Protocol PRN Reason: Hypoglycemia Protocol Hydrocortisone (Cortizone 1% Cream) 0 gm TOP TID PRN PRN Reason: Rash Hydromorphone HCl (Dilaudid) 1.5 mg IVP Q3 PRN PRN Reason: Pain, SEVERE (8-10) Last Admin: 05/27/18 11:30 Dose: 1.5 mg Dextrose (Dextrose 5% In Water 1000 Ml) 1,000 mls @ 0 mls/hr IV .Q0M PRN; Protocol; Per Protocol PRN Reason: Hypoglycemia Protocol Metronidazole (Flagyl) 500 mg in 100 mls @ 100 mls/hr IVPB Q8H [facility] PRN Reason: Protocol Last Admin: 05/27/18 11:55 Dose: 100 mls/hr Meropenem 1 gm/ Sodium (Chloride) 100 mls @ 100 mls/hr IVPB Q8H [facility] PRN Reason: Protocol Last Admin: 05/27/18 11:20 Dose: 100 mls/hr Fluconazole 100 mg/ (Miscellaneous) 50 mls @ 100 mls/hr IVPB Q24H [facility] PRN Reason: Protocol Last Admin: 05/26/18 14:21 Dose: 100 mls/hr Potassium Chloride 20 meq/Chromium/Copper/Manganese/Seleni/Zn 1 ml/ Insulin Human Regular 10 unit/ Heparin Sodium (Porcine) 1,000 units/Amino Acids/ Electrolytes/Dextrose 1,012.1 mls @ 63 mls/hr IV .Q16H4M [facility] Stop: 05/27/18 17:59 Last Admin: 05/27/18 11:37 Dose: 63 mls/hr Fat Emulsion Intravenous (Intralipid 20%) 500 mls @ 42 mls/hr IV QOD@1800 [facility] Last Admin: 05/26/18 19:00 Dose: 42 mls/hr Insulin Human Regular (Novolin R) 0 unit SC Q6 [facility] PRN Reason: Protocol Last Admin: 05/27/18 11:59 Dose: 2 unit Ipratropium [place] (Atrovent) 0.5 mg IH RQ6 [facility] Last Admin: 05/27/18 06:50 Dose: 0.5 mg Lactobacillus Acidophilus (Bacid Acidophilus) 1 cap PEG BID [facility] Last Admin: 05/27/18 11:33 Dose: 1 cap Lorazepam (Ativan) 0.5 mg IVP Q8H PRN PRN Reason: Anxiety Last Admin: 05/27/18 04:32 Dose: 0.5 mg Metoprolol Tartrate (Lopressor) 25 mg NG BID [facility] Last Admin: 05/27/18 11:13 Dose: 25 mg Nicotine (Nicoderm Cq) 1 patch TD DAILY [facility] Last Admin: 05/27/18 11:12 Dose: 1 patch Pantoprazole Sodium (Protonix Inj) 40 mg IVP DAILY [facility] Last Admin: 05/27/18 11:12 Dose: 40 mg Saliva Substitute (Mouth Kote 236 Ml) 0 ml MM Q6 PRN PRN Reason: Dry mouth Vitamin A (Vitamin A & D Oint Ud Foilpak) 1 ea TOP Q8 PRN PRN Reason: dry lips Last Admin: 05/20/18 11:10 Dose: 1 ea - Labs Labs: 05/27/18 06:45 05/27/18 06:45 PT 16.0 SECONDS (9.7-12.2) H 05/26/18 06:32 INR 1.5 05/26/18 06:32 APTT 33 SECONDS (21-34) 05/25/18 06:16 - Constitutional Appears: No Acute Distress - Head Exam Head Exam: NORMOCEPHALIC - Eye Exam Eye Exam: EOMI, Normal appearance - ENT Exam ENT Exam: Mucous Membranes Moist - Respiratory Exam Respiratory Exam: NORMAL BREATHING PATTERN - Cardiovascular Exam Cardiovascular Exam: Tachycardia, +S1, +S2 - GI/Abdominal Exam GI & Abdominal Exam: Soft Additional comments: midline incision packed with iodoform draining serosanguinous drainage - Rectal Exam Rectal Exam: NORMAL INSPECTION - Neurological Exam Neurological Exam: Alert, Awake, Oriented x3 - Psychiatric Exam Psychiatric exam: Normal Mood - Skin Skin Exam: Dry, Intact, Warm Assessment and Plan - Assessment and Plan (Free Text) Assessment: 37yo F with PMHx of [id number] gastric bypass in 2013 now with bowel ischemia secondary to internal hernia. POD#13 s/p Exploratory laparotomy, Reduction of internal hernia, DANNI, Drainage of abdominal collections, temporary abdominal closure (fascia left open), EGD. POD#10 s/p Re-exploration, Small bowel resection of ileum, small bowel resection of Yenni limb including previous gastrojejunostomy, reversal of bypass , primary anastomosis of ileum-ileum, ileum-ileum, and ileum-jejunum, Gastrostomy tube in bypassed stomach, EGD Plan: - Continue strict NPO w/ NG tube - On tube feeds at goal of @50cc via Gastrostomy tube - Will 1/2 TPN -Recommend Iron studies - On Tylenol Q6 + Dilaudid for pain control - Continue lactobacillus - Cx from G tube site: yeast, pt on fluconazole - Will need surgery in 4 weeks to restore GI continuity - Dressing changed, iodoform packed in between sutures - Encouraged OOB, ambulation and IS use. - Continue PT - Discussed plan with Dr. Mack Jimenez PGY3
[2018-05-27] MEDS: Fluconazole IV 200mg/100 ml NS 100 MG in Premixed IV 1 EA IVPB SCH (13:30)
[2018-05-27 16:53] LABS: IRON 16 ug/dL (37-170)
[2018-05-27 17:03] LABS: % IRON SATURATION 8 (20-55); TOTAL IRON BINDING CAPACITY 205 ug/dL (250-450)
[2018-05-27] MEDS ORDERED: TPN IV ONE (18:00)
[2018-05-28] MEDS: (Novolin R) Insulin Human Regular 100 units/ml vial SC SCH ×5 (00:29→23:34)
[2018-05-28] MEDS: Ipratropium 0.02% Inhal Soln (0.5 mg/2.5 ml) UD IH SCH ×4 (01:36→20:39)
--- NOTE | 2018-05-28 02:47 | CP.PCM.PN ---
<Fahad Romano L - Last Filed: 05/28/18 03:07> Subjective - Date & Time of Evaluation Date of Evaluation: 05/28/18 Time of Evaluation: 02:43 - Subjective Subjective: Resident Progress Note for Hospitalist Service Patient examined at bedside. States that she is experiencing some diffuse abdominal pain in addition to pain on her left heel. Has no other complaints at this time. Denies chest pain, shortness of breath, nausea, vomiting, changes in bowel movements, dysuria. Objective - Vital Signs/Intake and Output Vital Signs (last 24 hours): Temp Pulse Resp BP Pulse Ox 97.6 F 126 H 20 112/79 96 05/27/18 23:05 05/27/18 23:05 05/27/18 23:05 05/27/18 23:05 05/27/18 23:05 - Medications Medications: Current Medications Acetaminophen (Tylenol 650mg/20.3ml Solution Ud) 975 mg GT Q8 [facility] Last Admin: 05/27/18 23:11 Dose: 975 mg Dextrose (Dextrose 50% Inj) 0 ml IV STAT PRN; Protocol PRN Reason: Hypoglycemia Protocol Last Admin: 05/16/18 23:40 Dose: 50 ml Dextrose (Glutose 15) 0 gm PO ONCE PRN; Protocol PRN Reason: Hypoglycemia Protocol Enoxaparin Sodium (Lovenox) 40 mg SC DAILY [facility] Last Admin: 05/27/18 11:12 Dose: 40 mg Glucagon (Glucagen Diagnostic Kit) 0 mg IM STAT PRN; Protocol PRN Reason: Hypoglycemia Protocol Hydrocortisone (Cortizone 1% Cream) 0 gm TOP TID PRN PRN Reason: Rash Hydromorphone HCl (Dilaudid) 1.5 mg IVP Q3 PRN PRN Reason: Pain, SEVERE (8-10) Last Admin: 05/27/18 23:59 Dose: 1.5 mg Dextrose (Dextrose 5% In Water 1000 Ml) 1,000 mls @ 0 mls/hr IV .Q0M PRN; Protocol; Per Protocol PRN Reason: Hypoglycemia Protocol Metronidazole (Flagyl) 500 mg in 100 mls @ 100 mls/hr IVPB Q8H [facility] PRN Reason: Protocol Last Admin: 05/27/18 22:00 Dose: 100 mls/hr Fluconazole 100 mg/ (Miscellaneous) 50 mls @ 100 mls/hr IVPB Q24H [facility] PRN Reason: Protocol Last Admin: 05/27/18 13:30 Dose: 100 mls/hr Fat Emulsion Intravenous (Intralipid 20%) 500 mls @ 42 mls/hr IV QOD@1800 [facility] Last Admin: 05/26/18 19:00 Dose: 42 mls/hr Potassium Chloride 20 meq/Chromium/Copper/Manganese/Seleni/Zn 1 ml/ Insulin Human Regular 10 unit/ Heparin Sodium (Porcine) 1,000 units/Multivitamins/ Vitamin C 10 ml/Amino Acids/Electrolytes/Dextrose 1,022.1 mls @ 30 mls/hr IV .Q24H ONE Stop: 05/28/18 17:59 Last Admin: 05/27/18 19:48 Dose: 30 mls/hr Insulin Human Regular (Novolin R) 0 unit SC Q6 [facility] PRN Reason: Protocol Last Admin: 05/28/18 00:29 Dose: Not Given Ipratropium [place] (Atrovent) 0.5 mg IH RQ6 [facility] Last Admin: 05/27/18 19:27 Dose: 0.5 mg Lactobacillus Acidophilus (Bacid Acidophilus) 1 cap PEG BID [facility] Last Admin: 05/27/18 19:47 Dose: 1 cap Lorazepam (Ativan) 0.5 mg IVP Q8H PRN PRN Reason: Anxiety Last Admin: 05/27/18 20:37 Dose: 0.5 mg Metoprolol Tartrate (Lopressor) 50 mg NG BID [facility] Nicotine (Nicoderm Cq) 1 patch TD DAILY [facility] Last Admin: 05/27/18 11:12 Dose: 1 patch Pantoprazole Sodium (Protonix Inj) 40 mg IVP DAILY [facility] Last Admin: 05/27/18 11:12 Dose: 40 mg Saliva Substitute (Mouth Kote 236 Ml) 0 ml MM Q6 PRN PRN Reason: Dry mouth Vitamin A (Vitamin A & D Oint Ud Foilpak) 1 ea TOP Q8 PRN PRN Reason: dry lips Last Admin: 05/20/18 11:10 Dose: 1 ea - Labs Labs: 05/27/18 06:45 05/27/18 06:45 PT 16.0 SECONDS (9.7-12.2) H 05/26/18 06:32 INR 1.5 05/26/18 06:32 APTT 33 SECONDS (21-34) 05/25/18 06:16 - Additional Findings Additional findings: - Constitutional Appears: Well, No Acute Distress - Head Exam Head Exam: ATRAUMATIC, NORMOCEPHALIC - Eye Exam Eye Exam: EOMI, Normal appearance - ENT Exam ENT Exam: Mucous Membranes Moist, Normal Exam Additional comments: NGT in right nare - Respiratory Exam Respiratory Exam: Clear to Ausculation Bilateral, NORMAL BREATHING PATTERN - Cardiovascular Exam Cardiovascular Exam: REGULAR RHYTHM, +S1, +S2 - GI/Abdominal Exam GI & Abdominal Exam: Soft, Tenderness, Normal Bowel Sounds Additional comments: abdominal dressing clean, dry, intact, gastrostomy tube in place on left side - Extremities Exam Extremities Exam: Normal Capillary Refill, Normal Inspection - Back Exam Back Exam: NORMAL INSPECTION - Neurological Exam Neurological Exam: Alert, Awake, Oriented x3 - Psychiatric Exam Psychiatric exam: Anxious - Skin Skin Exam: Dry, Intact, Normal Color Additional comments: 1 cm wide abrasion on left heel Assessment and Plan - Assessment and Plan (Free Text) Plan: Ischemic bowel disease- 2/2 to internal hernias producing bowel obstruction - CXR (05/14/18): no infiltrate, pleural effusion, or pneumothorax b/l. Diminished inspiratory volume question. No acute cardiovascular disease. - Lactate: 3.6 (prior OR)-->2.4 (post OR)-->2.3-->1.5-->1.6-->0.9 - Initially stool occult blood positive- patient denies bloody BMs presently, Hgb stable - Patient required emergent surgical intervention on 05/14/18 and transferred to ICU. Patient had a second surgery on 05/16/18. - Per operative note (05/14/18): Diagnostic laparoscopy, Exploratory laparotomy, Reduction of internal hernia, Lysis of adhesions, Drainage of abdominal collections, temporary abdominal closure, EGD. Ischemia of yenni limb, internal hernia. Naveed drain stitched to distal common limb - Per ICU evaluation noted: Patient underwent emergency laparotomy for possible ischemic bowel. Patient had GI bleed. In the operating room patient underwent extensive exploratory laparotomy. Significant gangrene of the small bowel noted. Hernia was identified, which was reduced. After that the significant improvement in the vasculature noted. - Per operative note (05/16/18): Re-exploration, Small bowel resection of ileum, small bowel resection of Yenni limb with gastrojejunostomy, reversal of bypass, primary anastomosis of ileum-ileum, ileum-ileum, and ileum- jejunum, Gastrostomy tube in bypassed stomach, EGD - Per surgery, monitor for abdominal compartment syndrome - Will need f/u surgery in 4-6 weeks to restore GI - Patient extubated 05/16/18 - Current drains include: NGT, gastrostomy tube, left min removed 05/25/18, right min removed 05/23/18 - GI series w/ small bowel (05/24/18): no evidence of postsurgical leak - Fluconazole 200 mg IV Q24H (active since 05/22/18) - Cultures: Peritoneal Fluid (05/14/18): Pseudomonas Aeruginosa sensitive to Meropenem Wound Culture (05/23/18): Yudith albicans Blood culture (05/15/18, 05/22/18): no growth Urine culture (05/22/18): no growth - Tylenol 975 mg liq q8hrs - Dilaudid 1.5 mg IV q3hrs PRN - Surgery consulted (Dr. Harley- [place] covering, Dr. Samara Denise)- preoperative /intraoperative/postoperative management per surgery, repeat surgery in mid June - GI consulted (Dr. Alvarado) - ID consulted (Dr. Rivera)- d/c abx, continue Diflucan - PT consulted Small bowel obstruction- 2/2 to internal hernia - Pre-op CT A/P (05/13/18): Writhing appearance of mesentric vessels. Mesentric edema. No evidence of bowel obstruction. Whirling appearance of mesentric vessels is nonspecific. Prominent mesentric lymph nodes. Mesentric edema. - GI series w/ small bowel (05/24/18): no evidence of postsurgical leak Leukocytosis, improving- likely 2/2 to ischemic bowel 2/2 to small bowel obstruction and surgeries - Procalcitonin: 0.44 - Cultures: Peritoneal Fluid (05/14/18): Pseudomonas Aeruginosa sensitive to Meropenem Wound Culture (05/23/18): Yudith albicans Blood culture (05/15/18, 05/22/18): no growth Urine culture (05/22/18): no growth Acute anemia- stable - Patient denies blood in stool - Hgb 05/27: 8.5 - Patient received a total of 2 PRBC and 4 FFP - Followup iron studies Persistent tachycardia - Pain vs. infection vs. anxiety - She is being treated for Left G Tube fluid infection. She has been started on - Ativan 0.5 mg IVP Q8H PRN - Dilaudid 1.5 mg IVP Q3 PRN - Increase Metoprolol Tartrate to 50 mg NG BID with holding parameters Diarrhea - Stool O&P (05/25/18): negative - C. Diff (05/22/18): negative - C. Diff (05/24/18): negative - Stool leukocytes (05/25/18): negative Thombocytosis- improving - Suspect reactive - Platelets 722 -> 591 Anxiety - Ativan 0.5 mg IV Q8H PRN Hx of Obesity- resolved - s/p gastric bypass surgery 2014 History of Asthma - Atrovent Q6H T2DM, controlled - From prior note: Admittedly non-compliant - has not taken Januvia for one year - Accuchecks Q6H - Hypoglycemic protocol - Hgba1c 5.8 - History of gastric bypass surgery Hypercholesterolemia - From prior note: Pt not taking meds - LDL 38, HDL 14, Chol 104, TG 226 - History of gastric bypass surgery Hx of HTN - History of gastric bypass surgery Hx of Hypothyroidism - From prior note: Pt admits non-compliance Hx of KEM - 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 and from prior note from last hospitalization Nicotine use disorder - From prior note: 1ppd x 20 yrs, 1/2 ppd x 3 yrs - Nicoderm 1 patch TD QD Monitor lesion on L heel - Hydrocortisone 1% Cream topical TID for Right Upper Inner Arm macular rash- likely 2/2 to blood pressure cuff - Vitamin A&D topical q8hrs PRN for dry lips - Saliva substitute q6hrs PRN for dry mouth PPX - Lovenox 40 mg SC daily, SCDs - Protonix 40 mg IV BID - Florastor BID Dispo: Pending followup surgery to restore GI. Fahad Romano PGY-1 <Doretha Turk V - Last Filed: 05/28/18 18:51> Objective - Vital Signs/Intake and Output Vital Signs (last 24 hours): Temp Pulse Resp BP Pulse Ox 97.3 F L 129 H 22 115/78 98 05/28/18 15:00 05/28/18 17:00 08/18/18 15:00 05/28/18 15:00 05/28/18 15:00 Intake and Output: 05/28/18 05/28/18 06:59 18:59 Intake Total 760 770 Output Total 1500 1500 Balance -740 -730 - Medications Medications: Current Medications Acetaminophen (Tylenol 650mg/20.3ml Solution Ud) 975 mg GT Q8 [facility] Last Admin: 05/28/18 14:24 Dose: 975 mg Dextrose (Dextrose 50% Inj) 0 ml IV STAT PRN; Protocol PRN Reason: Hypoglycemia Protocol Last Admin: 05/16/18 23:40 Dose: 50 ml Dextrose (Glutose 15) 0 gm PO ONCE PRN; Protocol PRN Reason: Hypoglycemia Protocol Enoxaparin Sodium (Lovenox) 40 mg SC DAILY [facility] Last Admin: 05/28/18 09:01 Dose: 40 mg Fentanyl (Duragesic) 1 patch TD Q72H [facility] Last Admin: 05/28/18 13:49 Dose: 1 patch Glucagon (Glucagen Diagnostic Kit) 0 mg IM STAT PRN; Protocol PRN Reason: Hypoglycemia Protocol Hydrocortisone (Cortizone 1% Cream) 0 gm TOP TID PRN PRN Reason: Rash Hydromorphone HCl (Dilaudid) 1 mg IVP Q3 PRN PRN Reason: Pain, SEVERE (8-10) Last Admin: 05/28/18 16:01 Dose: 1 mg Dextrose (Dextrose 5% In Water 1000 Ml) 1,000 mls @ 0 mls/hr IV .Q0M PRN; Protocol; Per Protocol PRN Reason: Hypoglycemia Protocol Metronidazole (Flagyl) 500 mg in 100 mls @ 100 mls/hr IVPB Q8H [facility] PRN Reason: Protocol Last Admin: 05/28/18 11:40 Dose: 100 mls/hr Fluconazole 100 mg/ (Miscellaneous) 50 mls @ 100 mls/hr IVPB Q24H [facility] PRN Reason: Protocol Last Admin: 05/28/18 13:11 Dose: 100 mls/hr Fat Emulsion Intravenous (Intralipid 20%) 500 mls @ 42 mls/hr IV QOD@1800 [facility] Last Admin: 05/26/18 19:00 Dose: 42 mls/hr Insulin Human Regular (Novolin R) 0 unit SC Q6 [facility] PRN Reason: Protocol Last Admin: 05/28/18 12:54 Dose: 1 unit Ipratropium [place] (Atrovent) 0.5 mg IH RQ6 [facility] Last Admin: 05/28/18 13:37 Dose: 0.5 mg Lactobacillus Acidophilus (Bacid Acidophilus) 1 cap PEG BID [facility] Last Admin: 05/28/18 09:00 Dose: 1 cap Loperamide HCl (Imodium) 1 mg PO Q2H PRN PRN Reason: Diarrhea Last Admin: 05/28/18 14:25 Dose: 1 mg Lorazepam (Ativan) 0.5 mg IVP Q8H PRN PRN Reason: Anxiety Last Admin: 05/28/18 13:09 Dose: 0.5 mg Metoprolol Tartrate (Lopressor) 50 mg NG BID [facility] Last Admin: 05/28/18 09:02 Dose: 50 mg Nicotine (Nicoderm Cq) 1 patch TD DAILY [facility] Last Admin: 05/28/18 09:00 Dose: 1 patch Pantoprazole Sodium (Protonix Inj) 40 mg IVP DAILY [facility] Last Admin: 05/28/18 09:02 Dose: 40 mg Saliva Substitute (Mouth Kote 236 Ml) 0 ml MM Q6 PRN PRN Reason: Dry mouth Vitamin A (Vitamin A & D Oint Ud Foilpak) 1 ea TOP Q8 PRN PRN Reason: dry lips Last Admin: 05/20/18 11:10 Dose: 1 ea - Labs Labs: 05/28/18 06:36 05/28/18 06:36 PT 16.0 SECONDS (9.7-12.2) H 05/26/18 06:32 INR 1.5 05/26/18 06:32 APTT 33 SECONDS (21-34) 05/25/18 06:16 Assessment and Plan (1) Ischemic bowel disease Status: Acute (2) Obesity (BMI 30-39.9) Status: Acute (3) Status post gastric bypass for obesity Status: Resolved (4) Small bowel obstruction Status: Acute (5) Prophylactic measure Status: Acute Attending/Attestation - Attestation I have personally seen and examined this patient.: Yes I have fully participated in the care of the patient.: Yes I have reviewed all pertinent clinical information, including history, physical exam and plan: Yes Notes (Text): Patient seen, examined and case discussed with medical educator. Patient seen this morning during rounds. Patient has blood blister over the left upper extremity. Patient is very comfortable at bedside. Patient reports diarrhea is frequent. Surgery has added immodium today. Dilaudid d/c; switch to Fentanyl patch. Abdomen: soft, nontender, dressing noted mid-line. both right and left min drains are removed. and tylenol changed to liquid from rectal from surgery. Patient is currently on Flagyl and Diflucan. White count downtrending. Will continue to monitor. (1) Ischemic bowel disease Assessment & Plan: * Dr. Harley (surgery) on the case-->help appreciated * Dr. Giron covering. * Dr. Samara Denise (Surgery) on the case-->help appreciated * Preoperative/intraoperative/postoperative management per surgery * Dr. Alvarado (GI) on the case-->help appreciated * Dr. Rivera (ID) on the case-->help appreciated * Chest xray (05/14/18): no infiltrate, pleural effusion, or pneumothorax b/l. Diminished inspiratory volume question. No acute cardiovascular disease. * Lactic: 3.6 (prior OR)-->2.4 (post OR)-->2.3-->1.5-->1.6-->0.9 * Patient has had 2 bloody bowel movements started 05/14/18. Patient's rectal: blood. She had reported abdominal pain has worsening since night of admission. Patient required emergent surgical intervention on 05/14/18 and transferred to ICU. Patient will need a second surgery likely tomorrow on 05/16/18. * Per operative note (05/14/18): Diagnostic laparoscopy, Exploratory laparotomy, Reduction of internal hernia, Lysis of adhesions, Drainage of abdominal collections, temporary abdominal closure, EGD * Ischemia of yenni limb, internal hernia. [place] drain stitched to distal common limb * ICU evaluation noted: Patient underwent emergency laparotomy for possible ischemic bowel. Patient had GI bleed. In the operating room patient underwent extensive exploratory laparotomy. Significant gangrene of the small bowel noted. Hernia was identified, which was reduced.After that the significant improvement in the vasculature noted. * Patient underwent surgery again on 05/16/18.Re-exploration, Small bowel resection of ileum, small bowel resection of Yenni limb with gastrojejunostomy, reversal of bypass, primary anastomosis of ileum-ileum, ileum-ileum, and ileum- jejunum, Gastrostomy tube in bypassed stomach, EGD * Per surgery, monitor for abdominal compartment syndrome * Surgery has recommended for gastrograffin study to eval stomac/small bowel prior to increase feeding tube * Dressing changed, packed in between sutures * Orimev added by surgery for pain control * Will need f/u surgery in 4-6 weeks to restore GI * Patient extubated 05/16/18. Main complaint is abdominal pain, however she is quite comfortable compared to when I met her the day she required emergent surgery. * Drains included: NGT Tube, gastrostomy tube, left min removed 05/25/18; right min was removed 05/23/18 * GI series w/ small bowel: no evidence of postsurgical leak * IV abx: * Flagyl 500mg IVPB Q8H (active since 05/15/18) * Fluconazole 100mg IVPB Q24H (active 05/22/18) * Cultures: * Peritoneal Fluid : Pseudomonas Aeruginosa sensitive to Meropenem (05/15-05/27) * Wound Culture (05/23): Yudith Albican--->Diflucan since 05/22/18 * Blood culture (05/15/18): no growth after 5 days X2 * Blood culture (05/22/18): no growth after 5 days X2 * Urine culture: no growth Status: Acute (2) Small bowel obstruction Assessment & Plan: * Secondary to hernia * CT abdomen/Pelvis (05/13/18): Writhing appearance of mesentric vessels. Mesentric edema. No evidence of bowel obstruction. Whirling appearance of mesentric vessels is nonspecific. Prominent mesentric lymph nodes. Mesentric edema. (preop) * Patient has had 2 bloody bowel movements started 05/14/18. Patient's rectal: blood. She had reported abdominal pain has worsening since night of admission. Patient required emergent surgical intervention on 05/14/18 and transferred to ICU. Patient will need a second surgery likely tomorrow on 05/16/18. * Per operative note (05/14/18): Diagnostic laparoscopy, Exploratory laparotomy, Reduction of internal hernia, Lysis of adhesions, Drainage of abdominal collections, temporary abdominal closure, EGD * Ischemia of yenni limb, internal hernia. Naveed drain stitched to distal common limb * ICU evaluation noted: Patient underwent emergency laparotomy for possible ischemic bowel. Patient had GI bleed. In the operating room patient underwent extensive exploratory laparotomy. Significant gangrene of the small bowel noted. Hernia was identified, which was reduced.After that the significant improvement in the vasculature noted. But there is still a segment of bowel not healthy (portion of the alimentary canal from prior gastric bypass surgery--> clarified with surgery resident), * Patient underwent surgery again on 05/16/18.Re-exploration, Small bowel resection of ileum, small bowel resection of Yenni limb with gastrojejunostomy, reversal of bypass, primary anastomosis of ileum-ileum, ileum-ileum, and ileum- jejunum, Gastrostomy tube in bypassed stomach, EGD * Per surgery, monitor for abdominal compartment syndrome * Recommend TPN. * Will need f/u surgery in 4-6 weeks to restore GI * GI series w/ small bowel: no evidence of postsurgical leak Status: Acute (3) Obesity (BMI 30-39.9) Assessment & Plan: * s/p gastric bypass surgery in 2013 * Operative note (2013): Yenni-en-Y gastric bypass surgery Status: Acute (4) Status post gastric bypass for obesity Assessment & Plan: * status post gastric bypass 2013 * Operative note (2013): Yenni-en-Y gastric bypass surgery Status: Acute (5) History of Asthma Assessment & Plan: * Patient not in acute exacerbation prior to OR * Atrovent Q6H (6) Leukocytosis Assessment & Plan: * Downtrending * Likely secondary to ischemic bowel secondary to small bowel obstruction () and had surgery (05/16/18) * Peritoneal Fluid : Pseudomonas Aeruginosa sensitive to Meropenem * Blood culture (05/15/18): no growth after 5 days X2 * Blood culture (05/22/18): no growth after 5 days X2 * Urine culture: no growth * procalcitonin: 0.44 (7) Diabetes Mellitus (Type 2); controlled Assessment & Plan: * From prior note: * Admittedly non-compliant - has not taken Januvia for one year * Accuchecks Q6H * Hypoglycemic protocol * HbA1c - 6.3 (03/10/17) * hgba1c: 02/15 * History of gastric bypass surgery (8) Hx of HTN (hypertension) Assessment & Plan: * Since Gastric Bypass has not taken meds (9) Hx of Hypothyroid Assessment & Plan: * From prior note: * Pt admits non-compliance (10) Hypercholesterolemia Assessment & Plan: * From prior note: * Pt not taking meds * LDL 138, HDL 67, Tchol 220, Trig 112 * History of gastric bypass surgery (11) Anxiety Assessment & Plan: * Patient was taking Xanax for anxiety noted in prior note (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 Assessment & Plan: * 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 and from my prior note from last hospitalization (13) Smoker Assessment & Plan: * From my prior note: 1ppd x 20 yrs, 1/2 ppd x 3 yrs * Nicoderm 1 patch TD patchy (14) Prophylactic measure Assessment & Plan: * Lovenox 40mg subqdaily for DVT ppx * Srivastava removed 05/20/18 * Wound vac removed 05/19/18 * Dilaudid d/c 05/28 * on PPN on 05/23/18 * possible d/c tomorrow * RIJ TLC 05/14/18 * Off pressor * Off Paralytic * Protonix 40mg IV Q12H * Extubated 05/16/18 * STRICT NPO (15) Tachycardia Assessment & Plan: * Lopressor 50mg NGT BID. Status: Acute Disposition: f/u white count, monitor diarrhea, patient is pending surgery in 4weeks to re-establish GI motility
[2018-05-28] MEDS: metroNIDAZOLE IV 500 mg/100 ml 500 MG/100 ML BAG IVPB SCH ×3 (03:06→21:03)
[2018-05-28] MEDS: Acetaminophen 650mg/20.3ml solution UD GT SCH ×3 (06:02→22:58)
[2018-05-28 06:47] LABS: BASO # 0.1 K/uL (0.0-0.2); BASO % 0.5 % (0.0-2.0); EOS # 0.4 K/uL (0.0-0.7); EOS % 2.7 % (0.0-4.0); HEMOGLOBIN 8.1 g/dL (11.0-16.0); LYMPH # 2.7 K/uL (1.0-4.3); LYMPH % 16.9 % (20.0-40.0); MEAN CELL VOLUME 86.5 fL (81.0-99.0); MEAN CORPUSCULAR HEMOGLOBIN 28.3 pg (27.0-31.0); MEAN CORPUSCULAR HGB CONC 32.7 g/dL (33.0-37.0); MEAN PLATELET VOLUME 7.7 fL (7.2-11.7); MONO # 0.9 K/uL (0.0-0.8); MONO % 5.9 % (0.0-10.0); NEUT # 11.6 K/uL (1.8-7.0); RBC 2.88 Mil/uL (3.80-5.20); RED CELL DISTRIBUTION WIDTH 16.1 % (11.5-14.5); WHITE BLOOD COUNT 15.7 K/uL (4.8-10.8)
[2018-05-28 07:40] LABS: ALB/GLOB RATIO 0.8 (1.0-2.1); ALT/SGPT 11 U/L (9-52); AST/SGOT 11 U/L (14-36); BLOOD UREA NITROGEN 15 mg/dL (7-17); CALCIUM 8.6 mg/dl (8.6-10.4); GFR NON-AFRICAN AMERICAN > 60
[2018-05-28 07:46] LABS: FERRITIN 75.3 ng/mL
--- NOTE | 2018-05-28 08:22 | CP.PCM.PN ---
Subjective - Date & Time of Evaluation Date of Evaluation: 05/28/18 Time of Evaluation: 07:30 - Subjective Subjective: General Surgery progress note for Dr. Giron covering Dr. Harley Patient seen and examined this AM, no adverse events overnight, though patient complains of increased discharge from around the jejunostomy tube since yesterday. Denies any nausea, vomiting, or pain, she is having diarrhea with no blood Objective - Vital Signs/Intake and Output Vital Signs (last 24 hours): Temp Pulse Resp BP Pulse Ox 98.7 F 136 H 18 113/77 97 05/28/18 07:00 05/28/18 07:00 05/28/18 07:00 05/28/18 07:00 05/28/18 07:00 Intake and Output: 05/28/18 05/28/18 06:59 18:59 Intake Total 760 Output Total 1500 Balance -740 - Medications Medications: Current Medications Acetaminophen (Tylenol 650mg/20.3ml Solution Ud) 975 mg GT Q8 [facility] Last Admin: 05/28/18 06:02 Dose: 975 mg Dextrose (Dextrose 50% Inj) 0 ml IV STAT PRN; Protocol PRN Reason: Hypoglycemia Protocol Last Admin: 05/16/18 23:40 Dose: 50 ml Dextrose (Glutose 15) 0 gm PO ONCE PRN; Protocol PRN Reason: Hypoglycemia Protocol Enoxaparin Sodium (Lovenox) 40 mg SC DAILY [facility] Last Admin: 05/27/18 11:12 Dose: 40 mg Glucagon (Glucagen Diagnostic Kit) 0 mg IM STAT PRN; Protocol PRN Reason: Hypoglycemia Protocol Hydrocortisone (Cortizone 1% Cream) 0 gm TOP TID PRN PRN Reason: Rash Hydromorphone HCl (Dilaudid) 1.5 mg IVP Q3 PRN PRN Reason: Pain, SEVERE (8-10) Last Admin: 05/28/18 06:01 Dose: 1.5 mg Dextrose (Dextrose 5% In Water 1000 Ml) 1,000 mls @ 0 mls/hr IV .Q0M PRN; Protocol; Per Protocol PRN Reason: Hypoglycemia Protocol Metronidazole (Flagyl) 500 mg in 100 mls @ 100 mls/hr IVPB Q8H KATELYN PRN Reason: Protocol Last Admin: 05/28/18 03:06 Dose: 100 mls/hr Fluconazole 100 mg/ (Miscellaneous) 50 mls @ 100 mls/hr IVPB Q24H KATELYN PRN Reason: Protocol Last Admin: 05/27/18 13:30 Dose: 100 mls/hr Fat Emulsion Intravenous (Intralipid 20%) 500 mls @ 42 mls/hr IV QOD@1800 [facility] Last Admin: 05/26/18 19:00 Dose: 42 mls/hr Potassium Chloride 20 meq/Chromium/Copper/Manganese/Seleni/Zn 1 ml/ Insulin Human Regular 10 unit/ Heparin Sodium (Porcine) 1,000 units/Multivitamins/ Vitamin C 10 ml/Amino Acids/Electrolytes/Dextrose 1,022.1 mls @ 30 mls/hr IV .Q24H ONE Stop: 05/28/18 17:59 Last Admin: 05/27/18 19:48 Dose: 30 mls/hr Insulin Human Regular (Novolin R) 0 unit SC Q6 KATELYN PRN Reason: Protocol Last Admin: 05/28/18 06:08 Dose: 1 unit Ipratropium [place] (Atrovent) 0.5 mg IH RQ6 [facility] Last Admin: 05/28/18 01:36 Dose: Not Given Lactobacillus Acidophilus (Bacid Acidophilus) 1 cap PEG BID [facility] Last Admin: 05/27/18 19:47 Dose: 1 cap Lorazepam (Ativan) 0.5 mg IVP Q8H PRN PRN Reason: Anxiety Last Admin: 05/28/18 04:34 Dose: 0.5 mg Metoprolol Tartrate (Lopressor) 50 mg NG BID [facility] Nicotine (Nicoderm Cq) 1 patch TD DAILY [facility] Last Admin: 05/27/18 11:12 Dose: 1 patch Pantoprazole Sodium (Protonix Inj) 40 mg IVP DAILY [facility] Last Admin: 05/27/18 11:12 Dose: 40 mg Saliva Substitute (Mouth Kote 236 Ml) 0 ml MM Q6 PRN PRN Reason: Dry mouth Vitamin A (Vitamin A & D Oint Ud Foilpak) 1 ea TOP Q8 PRN PRN Reason: dry lips Last Admin: 05/20/18 11:10 Dose: 1 ea - Labs Labs: 05/28/18 06:36 05/28/18 06:36 PT 16.0 SECONDS (9.7-12.2) H 05/26/18 06:32 INR 1.5 05/26/18 06:32 APTT 33 SECONDS (21-34) 05/25/18 06:16 - Constitutional Appears: Well, Non-toxic, No Acute Distress - Head Exam Head Exam: ATRAUMATIC, NORMOCEPHALIC - Eye Exam Eye Exam: Normal appearance. absent: Conjunctival injection, Scleral icterus - Respiratory Exam Respiratory Exam: NORMAL BREATHING PATTERN. absent: Accessory Muscle Use, Respiratory Distress - Cardiovascular Exam Cardiovascular Exam: Tachycardia - GI/Abdominal Exam GI & Abdominal Exam: Soft. absent: Distended Additional comments: midline incision intermittent approximated with sutures, packed with iodoform gauze with moderate amount of dark, brown serous drainage. feeding tube in place with no surrounding erythema but moderate thick yellow, non-foul smelling drainage around it - Extremities Exam Extremities Exam: absent: Calf Tenderness, Pedal Edema, Tenderness Additional comments: right heel with superficial pressure wound - Neurological Exam Neurological Exam: Alert, Awake, Oriented x3 - Psychiatric Exam Psychiatric exam: Normal Affect, Normal Mood - Skin Skin Exam: Dry, Normal Color, Warm Assessment and Plan - Assessment and Plan (Free Text) Assessment: 38yo F with PMHx of yenni-en-Y gastric bypass in 2014, current bowel ischemia secondary to internal hernia. POD#14 s/p Exploratory laparotomy, Reduction of internal hernia, DANNI, Drainage of abdominal collections, temporary abdominal closure (fascia left open), EGD. POD#11 s/p Re-exploration, Small bowel resection of ileum, small bowel resection of Yenni limb including previous gastrojejunostomy, reversal of bypass , primary anastomosis of ileum-ileum, ileum-ileum, and ileum-jejunum, Gastrostomy tube in bypassed stomach, EGD Plan: Continue to trend labs Continue strict intake and output of bowel, bladder, and NGT output Continue strict nothing by mouth Continue NGT to wall suction Continue tube feeds at 50cc/h and monitor residuals Decrease TPN to 15ml/h today, likely D/C tomorrow Continue antibiotics Add imodium to regimen for diarrha Add fentanyl patch, decrease dilaudid dose Encourage ambulation Discussed with Dr. Giron, who examined the patient and agrees with above Marti Mo, PGY2
[2018-05-28] MEDS: Lactobacillus Acidophilus 500 MU Cap PEG SCH ×2 (09:00→18:54)
[2018-05-28] MEDS: Enoxaparin 40 mg Syringe SC SCH (09:01)
[2018-05-28] MEDS: Fluconazole IV 200mg/100 ml NS 100 MG in Premixed IV 1 EA IVPB SCH (13:11)
[2018-05-28] MEDS: Loperamide Hydrochloride 1 mg/5 ml Cup PO PRN ×3 (14:25→23:04)
--- NOTE | 2018-05-29 00:57 | CP.PCM.PN ---
<Fahad Romano L - Last Filed: 05/29/18 01:05> Subjective - Date & Time of Evaluation Date of Evaluation: 05/29/18 Time of Evaluation: 00:54 - Subjective Subjective: Resident Note for Hospitalist Service Patient examined at bedside. She is resting comfortably in bed. States that her abdominal pain is currently well managed and her abdominal wound dressing was just recently changed. She also states her heel wound feels better with dressing wrapped around her foot. Admits to diarrhea. Denies fevers, chills, headache, dizziness, chest pain, shortness of breath. Objective - Vital Signs/Intake and Output Vital Signs (last 24 hours): Temp Pulse Resp BP Pulse Ox 97.3 F L 129 H 22 115/78 98 05/28/18 15:00 05/28/18 17:00 05/28/18 15:00 05/28/18 15:00 05/28/18 15:00 Intake and Output: 05/28/18 05/29/18 18:59 06:59 Intake Total 770 Output Total 1500 Balance -730 - Medications Medications: Current Medications Acetaminophen (Tylenol 650mg/20.3ml Solution Ud) 975 mg GT Q8 [facility] Last Admin: 05/28/18 22:58 Dose: 975 mg Dextrose (Dextrose 50% Inj) 0 ml IV STAT PRN; Protocol PRN Reason: Hypoglycemia Protocol Last Admin: 05/16/18 23:40 Dose: 50 ml Dextrose (Glutose 15) 0 gm PO ONCE PRN; Protocol PRN Reason: Hypoglycemia Protocol Enoxaparin Sodium (Lovenox) 40 mg SC DAILY [facility] Last Admin: 05/28/18 09:01 Dose: 40 mg Fentanyl (Duragesic) 1 patch TD Q72H [facility] Last Admin: 05/28/18 13:49 Dose: 1 patch Glucagon (Glucagen Diagnostic Kit) 0 mg IM STAT PRN; Protocol PRN Reason: Hypoglycemia Protocol Hydrocortisone (Cortizone 1% Cream) 0 gm TOP TID PRN PRN Reason: Rash Hydromorphone HCl (Dilaudid) 1 mg IVP Q3 PRN PRN Reason: Pain, SEVERE (8-10) Last Admin: 05/28/18 22:54 Dose: 1 mg Dextrose (Dextrose 5% In Water 1000 Ml) 1,000 mls @ 0 mls/hr IV .Q0M PRN; Protocol; Per Protocol PRN Reason: Hypoglycemia Protocol Metronidazole (Flagyl) 500 mg in 100 mls @ 100 mls/hr IVPB Q8H KATELYN PRN Reason: Protocol Last Admin: 05/28/18 21:03 Dose: 100 mls/hr Fluconazole 100 mg/ (Miscellaneous) 50 mls @ 100 mls/hr IVPB Q24H KATELYN PRN Reason: Protocol Last Admin: 05/28/18 13:11 Dose: 100 mls/hr Fat Emulsion Intravenous (Intralipid 20%) 500 mls @ 42 mls/hr IV QOD@1800 [facility] Last Admin: 05/26/18 19:00 Dose: 42 mls/hr Insulin Human Regular (Novolin R) 0 unit SC Q6 [facility]ATELYN PRN Reason: Protocol Last Admin: 05/28/18 23:34 Dose: Not Given Ipratropium [place] (Atrovent) 0.5 mg IH RQ6 [facility] Last Admin: 05/28/18 20:39 Dose: 0.5 mg Lactobacillus Acidophilus (Bacid Acidophilus) 1 cap PEG BID [facility] Last Admin: 05/28/18 18:54 Dose: 1 cap Loperamide HCl (Imodium) 1 mg PO Q2H PRN PRN Reason: Diarrhea Last Admin: 05/28/18 23:04 Dose: 1 mg Lorazepam (Ativan) 0.5 mg IVP Q8H PRN PRN Reason: Anxiety Last Admin: 05/28/18 13:09 Dose: 0.5 mg Metoprolol Tartrate (Lopressor) 50 mg NG BID [facility] Last Admin: 05/28/18 18:54 Dose: 50 mg Nicotine (Nicoderm Cq) 1 patch TD DAILY [facility] Last Admin: 05/28/18 09:00 Dose: 1 patch Pantoprazole Sodium (Protonix Inj) 40 mg IVP DAILY [facility] Last Admin: 05/28/18 09:02 Dose: 40 mg Saliva Substitute (Mouth Kote 236 Ml) 0 ml MM Q6 PRN PRN Reason: Dry mouth Vitamin A (Vitamin A & D Oint Ud Foilpak) 1 ea TOP Q8 PRN PRN Reason: dry lips Last Admin: 05/20/18 11:10 Dose: 1 ea - Labs Labs: 05/28/18 06:36 05/28/18 06:36 PT 16.0 SECONDS (9.7-12.2) H 05/26/18 06:32 INR 1.5 05/26/18 06:32 APTT 33 SECONDS (21-34) 05/25/18 06:16 - Additional Findings Additional findings: - Constitutional Appears: Well, No Acute Distress - Head Exam Head Exam: ATRAUMATIC, NORMOCEPHALIC - Eye Exam Eye Exam: EOMI, Normal appearance - ENT Exam ENT Exam: Mucous Membranes Moist, Normal Exam Additional comments: NGT in right nare - Respiratory Exam Respiratory Exam: Clear to Ausculation Bilateral, NORMAL BREATHING PATTERN - Cardiovascular Exam Cardiovascular Exam: REGULAR RHYTHM, +S1, +S2 - GI/Abdominal Exam GI & Abdominal Exam: Soft, Tenderness, Normal Bowel Sounds Additional comments: abdominal dressing clean, dry, intact, gastrostomy tube in place on left side - Extremities Exam Extremities Exam: Normal Capillary Refill, Normal Inspection - Back Exam Back Exam: NORMAL INSPECTION - Neurological Exam Neurological Exam: Alert, Awake, Oriented x3 - Psychiatric Exam Psychiatric exam: Anxious - Skin Skin Exam: Dry, Intact, Normal Color Additional comments: 1 cm wide abrasion on left heel wrapped in dressing Assessment and Plan - Assessment and Plan (Free Text) Plan: Ischemic bowel disease- 2/2 to internal hernias producing bowel obstruction - CXR (05/14/18): no infiltrate, pleural effusion, or pneumothorax b/l. Diminished inspiratory volume question. No acute cardiovascular disease. - Lactate: 3.6 (prior OR)-->2.4 (post OR)-->2.3-->1.5-->1.6-->0.9 - Initially stool occult blood positive- patient denies bloody BMs presently, Hgb stable - Patient required emergent surgical intervention on 05/14/18 and transferred to ICU. Patient had a second surgery on 05/16/18. - Per operative note (05/14/18): Diagnostic laparoscopy, Exploratory laparotomy, Reduction of internal hernia, Lysis of adhesions, Drainage of abdominal collections, temporary abdominal closure, EGD. Ischemia of yenni limb, internal hernia. Naveed drain stitched to distal common limb - Per ICU evaluation noted: Patient underwent emergency laparotomy for possible ischemic bowel. Patient had GI bleed. In the operating room patient underwent extensive exploratory laparotomy. Significant gangrene of the small bowel noted. Hernia was identified, which was reduced. After that the significant improvement in the vasculature noted. - Per operative note (05/16/18): Re-exploration, Small bowel resection of ileum, small bowel resection of Yenni limb with gastrojejunostomy, reversal of bypass, primary anastomosis of ileum-ileum, ileum-ileum, and ileum- jejunum, Gastrostomy tube in bypassed stomach, EGD - Per surgery, monitor for abdominal compartment syndrome - Will need f/u surgery in 4-6 weeks to restore GI - Patient extubated 05/16/18 - Current drains include: NGT, gastrostomy tube, left min removed 05/25/18, right min removed 05/23/18 - GI series w/ small bowel (05/24/18): no evidence of postsurgical leak - Fluconazole 200 mg IV Q24H (active since 05/22/18) - Cultures: Peritoneal Fluid (05/14/18): Pseudomonas Aeruginosa sensitive to Meropenem Wound Culture (05/23/18): Yudith albicans Blood culture (05/15/18, 05/22/18): no growth Urine culture (05/22/18): no growth - Tylenol 975 mg liq q8hrs - Fentanyl 25 mcg/hr 1 patch TD Q72H - Surgery consulted (Dr. Harley- Giron covering, Dr. Samara Denise)- preoperative /intraoperative/postoperative management per surgery, repeat surgery in mid June - GI consulted (Dr. Alvarado) - ID consulted (Dr. Rivera)- d/c abx, continue Diflucan - PT consulted Small bowel obstruction- 2/2 to internal hernia - Pre-op CT A/P (05/13/18): Writhing appearance of mesentric vessels. Mesentric edema. No evidence of bowel obstruction. Whirling appearance of mesentric vessels is nonspecific. Prominent mesentric lymph nodes. Mesentric edema. - GI series w/ small bowel (05/24/18): no evidence of postsurgical leak Leukocytosis, improving- likely 2/2 to ischemic bowel 2/2 to small bowel obstruction and surgeries - Procalcitonin: 0.44 - Cultures: Peritoneal Fluid (05/14/18): Pseudomonas Aeruginosa sensitive to Meropenem Wound Culture (05/23/18): Yudith albicans Blood culture (05/15/18, 05/22/18): no growth Urine culture (05/22/18): no growth Acute anemia- stable - Patient denies blood in stool - Patient received a total of 2 PRBC and 4 FFP - Iron 16, TIBC 205, %saturation 8, Ferritin 75.3 Persistent tachycardia - Pain vs. infection vs. anxiety - She is being treated for Left G Tube fluid infection. She has been started on - Ativan 0.5 mg IVP Q8H PRN - Increase Metoprolol Tartrate to 50 mg NG BID with holding parameters Diarrhea - Stool O&P (05/25/18): negative - C. Diff (05/22/18): negative - C. Diff (05/24/18): negative - Stool leukocytes (05/25/18): negative Thombocytosis- improving - Suspect reactive - Platelets 591->788 Anxiety - Ativan 0.5 mg IV Q8H PRN Hx of Obesity- resolved - s/p gastric bypass surgery 2013 History of Asthma - Atrovent Q6H T2DM, controlled - From prior note: Admittedly non-compliant - has not taken Januvia for one year - Accuchecks Q6H - Hypoglycemic protocol - Hgba1c 5.8 - History of gastric bypass surgery Hypercholesterolemia - From prior note: Pt not taking meds - LDL 38, HDL 14, Chol 104, TG 226 - History of gastric bypass surgery Hx of HTN - History of gastric bypass surgery Hx of Hypothyroidism - From prior note: Pt admits non-compliance Hx of KEM - 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 and from prior note from last hospitalization Nicotine use disorder - From prior note: 1ppd x 20 yrs, 1/2 ppd x 3 yrs - Nicoderm 1 patch TD QD Monitor lesion on L heel - Hydrocortisone 1% Cream topical TID for Right Upper Inner Arm macular rash- likely 2/2 to blood pressure cuff - Vitamin A&D topical q8hrs PRN for dry lips - Saliva substitute q6hrs PRN for dry mouth PPX - Lovenox 40 mg SC daily, SCDs - Protonix 40 mg IV BID - Florastor BID Dispo: Pending followup surgery to restore GI. Fahad Romano PGY-1 <Doretha Turk V - Last Filed: 05/29/18 09:54> Objective - Vital Signs/Intake and Output Vital Signs (last 24 hours): Temp Pulse Resp BP Pulse Ox 98.2 F 133 H 20 96/69 L 99 05/29/18 08:38 05/29/18 08:38 05/29/18 08:38 05/29/18 08:38 05/29/18 08:38 - Medications Medications: Current Medications Acetaminophen (Tylenol 650mg/20.3ml Solution Ud) 975 mg GT Q8 [facility] Last Admin: 05/29/18 05:10 Dose: 975 mg Cholestyramine Resin (Questran) 4 gm PO BID [facility] Dextrose (Dextrose 50% Inj) 0 ml IV STAT PRN; Protocol PRN Reason: Hypoglycemia Protocol Last Admin: 05/16/18 23:40 Dose: 50 ml Dextrose (Glutose 15) 0 gm PO ONCE PRN; Protocol PRN Reason: Hypoglycemia Protocol Enoxaparin Sodium (Lovenox) 40 mg SC DAILY [facility] Last Admin: 05/28/18 09:01 Dose: 40 mg Fentanyl (Duragesic) 1 patch TD Q72H [facility] Last Admin: 05/28/18 13:49 Dose: 1 patch Glucagon (Glucagen Diagnostic Kit) 0 mg IM STAT PRN; Protocol PRN Reason: Hypoglycemia Protocol Hydrocortisone (Cortizone 1% Cream) 0 gm TOP TID PRN PRN Reason: Rash Hydromorphone HCl (Dilaudid) 1 mg IVP Q3 PRN PRN Reason: Pain, SEVERE (8-10) Last Admin: 05/29/18 08:19 Dose: 1 mg Dextrose (Dextrose 5% In Water 1000 Ml) 1,000 mls @ 0 mls/hr IV .Q0M PRN; Protocol; Per Protocol PRN Reason: Hypoglycemia Protocol Metronidazole (Flagyl) 500 mg in 100 mls @ 100 mls/hr IVPB Q8H [facility] PRN Reason: Protocol Last Admin: 05/29/18 05:10 Dose: 100 mls/hr Fluconazole 100 mg/ (Miscellaneous) 50 mls @ 100 mls/hr IVPB Q24H [facility] PRN Reason: Protocol Last Admin: 05/28/18 13:11 Dose: 100 mls/hr Fat Emulsion Intravenous (Intralipid 20%) 500 mls @ 42 mls/hr IV QOD@1800 [facility] Last Admin: 05/26/18 19:00 Dose: 42 mls/hr Insulin Human Regular (Novolin R) 0 unit SC Q6 [facility] PRN Reason: Protocol Last Admin: 05/28/18 23:34 Dose: Not Given Ipratropium [place] (Atrovent) 0.5 mg IH RQ6 [facility] Last Admin: 05/29/18 08:04 Dose: 0.5 mg Lactobacillus Acidophilus (Bacid Acidophilus) 1 cap PEG BID [facility] Last Admin: 05/28/18 18:54 Dose: 1 cap Loperamide HCl (Imodium) 1 mg PO Q2H PRN PRN Reason: Diarrhea Last Admin: 05/29/18 08:53 Dose: 1 mg Lorazepam (Ativan) 0.5 mg IVP Q8H PRN PRN Reason: Anxiety Last Admin: 05/29/18 08:46 Dose: 0.5 mg Metoprolol Tartrate (Lopressor) 50 mg NG BID [facility] Last Admin: 05/28/18 18:54 Dose: 50 mg Nicotine (Nicoderm Cq) 1 patch TD DAILY [facility] Last Admin: 05/28/18 09:00 Dose: 1 patch Pantoprazole Sodium (Protonix Inj) 40 mg IVP DAILY [facility] Last Admin: 05/28/18 09:02 Dose: 40 mg Saliva Substitute (Mouth Kote 236 Ml) 0 ml MM Q6 PRN PRN Reason: Dry mouth Vitamin A (Vitamin A & D Oint Ud Foilpak) 1 ea TOP Q8 PRN PRN Reason: dry lips Last Admin: 05/20/18 11:10 Dose: 1 ea - Labs Labs: 05/29/18 08:21 05/29/18 08:21 PT 16.0 SECONDS (9.7-12.2) H 05/26/18 06:32 INR 1.5 05/26/18 06:32 APTT 33 SECONDS (21-34) 05/25/18 06:16 Assessment and Plan (1) Ischemic bowel disease Status: Acute (2) Obesity (BMI 30-39.9) Status: Acute (3) Small bowel obstruction Status: Acute (4) Prophylactic measure Status: Acute Attending/Attestation - Attestation I have personally seen and examined this patient.: Yes I have fully participated in the care of the patient.: Yes I have reviewed all pertinent clinical information, including history, physical exam and plan: Yes Notes (Text): Patient seen, examined, and case discussed with day-time resident. Patient reports yesterday she had "twenty times" diarrhea. Today, she reports 8 times diarrhea yellow and watery. She reports she did get the immodium but does not see any change. Patient started on Questran 4mg PO bid today. patient is on Diflucan since 05/22/18 wound culture from 05/23/18 and Flagyl 500mg IVPB Q8H since 05/15/18. Repeat stool ova and parasite 05/28 and Stool culture and C. Dif on 05/29/18 ordered. Pain regiment: Fentanyl and decrease dilaudid per surgery. patient last seen by physical therapy on 05/25/18. Will reconsult PT/OT to encourage ambulation. Patient is on DVT ppx and SCDS. Patient has NGT tube, and gastrostomy tube. No min drains. Patient's surgery dressings were changed by surgery this morning.
[2018-05-29] MEDS: Ipratropium 0.02% Inhal Soln (0.5 mg/2.5 ml) UD IH SCH ×4 (01:10→19:11)
[2018-05-29] MEDS: Loperamide Hydrochloride 1 mg/5 ml Cup PO PRN ×3 (02:18→12:32)
[2018-05-29] MEDS: metroNIDAZOLE IV 500 mg/100 ml 500 MG/100 ML BAG IVPB SCH ×3 (05:10→19:49)
[2018-05-29] MEDS: Acetaminophen 650mg/20.3ml solution UD GT SCH ×2 (05:10→15:59)
[2018-05-29 08:33] LABS: BASO # 0.1 K/uL (0.0-0.2); BASO % 0.7 % (0.0-2.0); EOS # 0.3 K/uL (0.0-0.7); EOS % 2.4 % (0.0-4.0); HEMOGLOBIN 8.8 g/dL (11.0-16.0); LYMPH # 2.2 K/uL (1.0-4.3); LYMPH % 16.2 % (20.0-40.0); MEAN CELL VOLUME 87.5 fL (81.0-99.0); MEAN CORPUSCULAR HGB CONC 33.2 g/dL (33.0-37.0); MEAN PLATELET VOLUME 7.5 fL (7.2-11.7); MONO % 7.3 % (0.0-10.0); NEUT # 9.9 K/uL (1.8-7.0); NEUT % 73.4 % (50.0-75.0); RBC 3.04 Mil/uL (3.80-5.20); RED CELL DISTRIBUTION WIDTH 16.9 % (11.5-14.5); WHITE BLOOD COUNT 13.5 K/uL (4.8-10.8)
[2018-05-29 09:23] LABS: ALB/GLOB RATIO 0.8 (1.0-2.1); ALBUMIN 3.1 g/dL (3.5-5.0); ALT/SGPT 19 U/L (9-52); AST/SGOT 26 U/L (14-36); BLOOD UREA NITROGEN 19 mg/dL (7-17); CALCIUM 8.9 mg/dl (8.6-10.4); GFR NON-AFRICAN AMERICAN > 60
[2018-05-29] MEDS: Enoxaparin 40 mg Syringe SC SCH (10:23)
[2018-05-29] MEDS: Lactobacillus Acidophilus 500 MU Cap PEG SCH ×2 (10:23→19:09)
[2018-05-29] MEDS: Cholestyramine 4 gm/Pkt UD PO SCH ×2 (11:21→19:09)
[2018-05-29] MEDS: (Novolin R) Insulin Human Regular 100 units/ml vial SC SCH ×2 (11:52→19:03)
--- NOTE | 2018-05-29 11:52 | CP.PCM.PN ---
Subjective - Date & Time of Evaluation Date of Evaluation: 05/29/18 Time of Evaluation: 11:48 - Subjective Subjective: Surgery: Dr. Giron Pt seen and examined. No acute events overnight. Pt continues to have pain. Mildly improved. No N/V. Persistent diarrhea. Objective - Vital Signs/Intake and Output Vital Signs (last 24 hours): Temp Pulse Resp BP Pulse Ox 98.2 F 133 H 20 96/69 L 99 05/29/18 07:45 05/29/18 07:45 05/29/18 07:45 05/29/18 07:45 05/29/18 07:45 - Medications Medications: Current Medications Acetaminophen (Tylenol 650mg/20.3ml Solution Ud) 975 mg GT Q8 [facility] Last Admin: 05/29/18 05:10 Dose: 975 mg Cholestyramine Resin (Questran) 4 gm PO BID [facility] Last Admin: 05/29/18 11:21 Dose: 4 gm Dextrose (Dextrose 50% Inj) 0 ml IV STAT PRN; Protocol PRN Reason: Hypoglycemia Protocol Last Admin: 05/16/18 23:40 Dose: 50 ml Dextrose (Glutose 15) 0 gm PO ONCE PRN; Protocol PRN Reason: Hypoglycemia Protocol Enoxaparin Sodium (Lovenox) 40 mg SC DAILY [facility] Last Admin: 05/29/18 10:23 Dose: 40 mg Fentanyl (Duragesic) 1 patch TD Q72H [facility] Last Admin: 05/28/18 13:49 Dose: 1 patch Glucagon (Glucagen Diagnostic Kit) 0 mg IM STAT PRN; Protocol PRN Reason: Hypoglycemia Protocol Hydrocortisone (Cortizone 1% Cream) 0 gm TOP TID PRN PRN Reason: Rash Hydromorphone HCl (Dilaudid) 1 mg IVP Q3 PRN PRN Reason: Pain, SEVERE (8-10) Last Admin: 05/29/18 11:19 Dose: 1 mg Dextrose (Dextrose 5% In Water 1000 Ml) 1,000 mls @ 0 mls/hr IV .Q0M PRN; Protocol; Per Protocol PRN Reason: Hypoglycemia Protocol Metronidazole (Flagyl) 500 mg in 100 mls @ 100 mls/hr IVPB Q8H [facility] PRN Reason: Protocol Last Admin: 05/29/18 05:10 Dose: 100 mls/hr Fluconazole 100 mg/ (Miscellaneous) 50 mls @ 100 mls/hr IVPB Q24H [facility] PRN Reason: Protocol Last Admin: 05/28/18 13:11 Dose: 100 mls/hr Insulin Human Regular (Novolin R) 0 unit SC Q6 [facility] PRN Reason: Protocol Last Admin: 05/28/18 23:34 Dose: Not Given Ipratropium [place] (Atrovent) 0.5 mg IH RQ6 [facility] Last Admin: 05/29/18 08:04 Dose: 0.5 mg Lactobacillus Acidophilus (Bacid Acidophilus) 1 cap PEG BID [facility] Last Admin: 05/29/18 10:23 Dose: 1 cap Loperamide HCl (Imodium) 1 mg PO Q2H PRN PRN Reason: Diarrhea Last Admin: 05/29/18 08:53 Dose: 1 mg Lorazepam (Ativan) 0.5 mg IVP Q8H PRN PRN Reason: Anxiety Last Admin: 05/29/18 08:46 Dose: 0.5 mg Metoprolol Tartrate (Lopressor) 50 mg NG BID [facility] Last Admin: 05/29/18 10:26 Dose: 50 mg Nicotine (Nicoderm Cq) 1 patch TD DAILY [facility] Last Admin: 05/29/18 10:23 Dose: 1 patch Pantoprazole Sodium (Protonix Inj) 40 mg IVP DAILY [facility] Last Admin: 05/29/18 10:22 Dose: 40 mg Saliva Substitute (Mouth Kote 236 Ml) 0 ml MM Q6 PRN PRN Reason: Dry mouth Vitamin A (Vitamin A & D Oint Ud Foilpak) 1 ea TOP Q8 PRN PRN Reason: dry lips Last Admin: 05/20/18 11:10 Dose: 1 ea - Labs Labs: 05/29/18 08:21 05/29/18 08:21 PT 16.0 SECONDS (9.7-12.2) H 05/26/18 06:32 INR 1.5 05/26/18 06:32 APTT 33 SECONDS (21-34) 05/25/18 06:16 - Constitutional Appears: Non-toxic, No Acute Distress - Head Exam Head Exam: ATRAUMATIC, NORMOCEPHALIC - Eye Exam Eye Exam: EOMI Pupil Exam: NORMAL ACCOMODATION - ENT Exam ENT Exam: Mucous Membranes Moist - Neck Exam Neck Exam: Full ROM - Respiratory Exam Respiratory Exam: NORMAL BREATHING PATTERN. absent: Accessory Muscle Use, Respiratory Distress - Cardiovascular Exam Cardiovascular Exam: Tachycardia - GI/Abdominal Exam GI & Abdominal Exam: Soft, Tenderness (luana-incisional ). absent: Distended, Firm, Guarding, Rigid, Rebound Additional comments: Midline incision w. fat necrosis, G tube in place - Extremities Exam Extremities Exam: absent: Calf Tenderness, Pedal Edema - Neurological Exam Neurological Exam: Alert, Awake, Oriented x3 - Psychiatric Exam Psychiatric exam: Normal Affect, Normal Mood - Skin Skin Exam: Dry, Normal Color, Warm Assessment and Plan - Assessment and Plan (Free Text) Assessment: 38yo F with PMHx of yenni-en-Y gastric bypass in 2014, current bowel ischemia secondary to internal hernia. POD#15 s/p Exploratory laparotomy, Reduction of internal hernia, DANNI, Drainage of abdominal collections, temporary abdominal closure (fascia left open), EGD. POD#12 s/p Re-exploration, Small bowel resection of ileum, small bowel resection of Yenni limb including previous gastrojejunostomy, reversal of bypass , primary anastomosis of ileum-ileum, ileum-ileum, and ileum-jejunum, Gastrostomy tube in bypassed stomach, EGD -c/w TF at goal -will start cholestyramine for diarrhea -c/w pain management -local wound care for midline incision -abx per ID -c/w DVT ppx -d/w attending Mona PGY4
[2018-05-29] MEDS: Fluconazole IV 200mg/100 ml NS 100 MG in Premixed IV 1 EA IVPB SCH (13:05)
[2018-05-29] MEDS ORDERED: Sodium Chloride 0.9% 1,000 ML IV ONE (15:05)
[2018-05-30] MEDS: Ipratropium 0.02% Inhal Soln (0.5 mg/2.5 ml) UD IH SCH ×4 (01:15→19:31)
[2018-05-30] MEDS: (Novolin R) Insulin Human Regular 100 units/ml vial SC SCH ×3 (01:31→18:26)
[2018-05-30] MEDS: Loperamide Hydrochloride 1 mg/5 ml Cup PO PRN ×3 (02:11→22:06)
[2018-05-30] MEDS: metroNIDAZOLE IV 500 mg/100 ml 500 MG/100 ML BAG IVPB SCH ×3 (04:37→21:59)
[2018-05-30] MEDS: Acetaminophen 650mg/20.3ml solution UD GT SCH ×2 (05:28→22:01)
--- NOTE | 2018-05-30 06:12 | CP.PCM.PN ---
Subjective - Date & Time of Evaluation Date of Evaluation: 05/30/18 Time of Evaluation: 09:15 - Subjective Subjective: PGY-1 Yanelis Hudson D.O. Medicine progress note: Objective - Vital Signs/Intake and Output Vital Signs (last 24 hours): Temp Pulse Resp BP Pulse Ox 98.6 F 126 H 20 103/73 99 05/29/18 23:10 05/30/18 01:40 05/29/18 23:10 05/29/18 23:10 05/29/18 23:10 Intake and Output: 05/29/18 05/30/18 18:59 06:59 Intake Total 2007 Output Total 4999 Balance -2992 - Medications Medications: Current Medications Acetaminophen (Tylenol 650mg/20.3ml Solution Ud) 975 mg GT Q8 [facility] Last Admin: 05/30/18 05:28 Dose: 975 mg Cholestyramine Resin (Questran) 4 gm PO BID [facility] Last Admin: 05/29/18 19:09 Dose: 4 gm Dextrose (Dextrose 50% Inj) 0 ml IV STAT PRN; Protocol PRN Reason: Hypoglycemia Protocol Last Admin: 05/16/18 23:40 Dose: 50 ml Dextrose (Glutose 15) 0 gm PO ONCE PRN; Protocol PRN Reason: Hypoglycemia Protocol Enoxaparin Sodium (Lovenox) 40 mg SC DAILY [facility] Last Admin: 05/29/18 10:23 Dose: 40 mg Fentanyl (Duragesic) 1 patch TD Q72H [facility] Last Admin: 05/28/18 13:49 Dose: 1 patch Glucagon (Glucagen Diagnostic Kit) 0 mg IM STAT PRN; Protocol PRN Reason: Hypoglycemia Protocol Hydrocortisone (Cortizone 1% Cream) 0 gm TOP TID PRN PRN Reason: Rash Hydromorphone HCl (Dilaudid) 1 mg IVP Q3 PRN PRN Reason: Pain, SEVERE (8-10) Last Admin: 05/30/18 04:32 Dose: 1 mg Dextrose (Dextrose 5% In Water 1000 Ml) 1,000 mls @ 0 mls/hr IV .Q0M PRN; Protocol; Per Protocol PRN Reason: Hypoglycemia Protocol Metronidazole (Flagyl) 500 mg in 100 mls @ 100 mls/hr IVPB Q8H [facility] PRN Reason: Protocol Last Admin: 05/30/18 04:37 Dose: 100 mls/hr Fluconazole 100 mg/ (Miscellaneous) 50 mls @ 100 mls/hr IVPB Q24H [facility] PRN Reason: Protocol Last Admin: 05/29/18 13:05 Dose: 100 mls/hr Insulin Human Regular (Novolin R) 0 unit SC Q6 [facility] PRN Reason: Protocol Last Admin: 05/30/18 01:31 Dose: Not Given Ipratropium [place] (Atrovent) 0.5 mg IH RQ6 [facility] Last Admin: 05/30/18 01:15 Dose: Not Given Lactobacillus Acidophilus (Bacid Acidophilus) 1 cap PEG BID [facility] Last Admin: 05/29/18 19:09 Dose: 1 cap Loperamide HCl (Imodium) 1 mg PO Q2H PRN PRN Reason: Diarrhea Last Admin: 05/30/18 05:28 Dose: 1 mg Lorazepam (Ativan) 0.5 mg IVP Q8H PRN PRN Reason: Anxiety Last Admin: 05/29/18 22:46 Dose: 0.5 mg Metoprolol Tartrate (Lopressor) 50 mg NG BID [facility] Last Admin: 05/29/18 19:08 Dose: 50 mg Nicotine (Nicoderm Cq) 1 patch TD DAILY [facility] Last Admin: 05/29/18 10:23 Dose: 1 patch Pantoprazole Sodium (Protonix Inj) 40 mg IVP DAILY [facility] Last Admin: 05/29/18 10:22 Dose: 40 mg Saliva Substitute (Mouth Kote 236 Ml) 0 ml MM Q6 PRN PRN Reason: Dry mouth Vitamin A (Vitamin A & D Oint Ud Foilpak) 1 ea TOP Q8 PRN PRN Reason: dry lips Last Admin: 05/20/18 11:10 Dose: 1 ea - Labs Labs: 05/29/18 08:21 05/29/18 08:21 PT 16.0 SECONDS (9.7-12.2) H 05/26/18 06:32 INR 1.5 05/26/18 06:32 APTT 33 SECONDS (21-34) 05/25/18 06:16 - Constitutional Appears: Non-toxic, No Acute Distress - Head Exam Head Exam: ATRAUMATIC, NORMAL INSPECTION, NORMOCEPHALIC - Eye Exam Eye Exam: EOMI, Normal appearance - ENT Exam ENT Exam: Mucous Membranes Moist, Normal Exam - Neck Exam Neck Exam: Normal Inspection - Respiratory Exam Respiratory Exam: Clear to Ausculation Bilateral, NORMAL BREATHING PATTERN - Cardiovascular Exam Cardiovascular Exam: REGULAR RHYTHM, +S1, +S2 - GI/Abdominal Exam GI & Abdominal Exam: Soft, Tenderness, Normal Bowel Sounds Additional comments: gastrostomy in place, midline surgical scar with dressing - Rectal Exam Rectal Exam: Deferred - Extremities Exam Extremities Exam: Normal Capillary Refill, Normal Inspection - Back Exam Back Exam: NORMAL INSPECTION - Neurological Exam Neurological Exam: Alert, Awake, CN II-XII Intact, Oriented x3 - Psychiatric Exam Psychiatric exam: Normal Affect, Normal Mood - Skin Skin Exam: Dry, Intact, Normal Color, Warm Assessment and Plan - Assessment and Plan (Free Text) Assessment: Patient is a 37 yo female with a history of gastric bypass in 2013 who presented with severe abdominal pain. She was found to have bowel ischemia 2/2 internal hernia. Patient underwent ex lap on 05/14 and again on 05/16. She will need a repeat surgery 4-6 weeks from the first. She currently has an NGT and is utilizing a G tube for nutrition/meds. Plan: Ischemic bowel disease- 2/2 to internal hernias producing bowel obstruction - CXR (05/14/18): no infiltrate, pleural effusion, or pneumothorax b/l. Diminished inspiratory volume question. No acute cardiovascular disease. - Lactate: 3.6 (prior OR)-->2.4 (post OR)-->2.3-->1.5-->1.6-->0.9 - Initially stool occult blood positive- patient denies bloody BMs presently , Hgb stable - Patient required emergent surgical intervention on 05/14/18 and transferred to ICU. Patient had a second surgery on 05/16/18. - Per operative note (05/14/18): Diagnostic laparoscopy, Exploratory laparotomy, Reduction of internal hernia, Lysis of adhesions, Drainage of abdominal collections, temporary abdominal closure, EGD. Ischemia of yenni limb, internal hernia. Naveed drain stitched to distal common limb - Per ICU evaluation noted: Patient underwent emergency laparotomy for possible ischemic bowel. Patient had GI bleed. In the operating room patient underwent extensive exploratory laparotomy. Significant gangrene of the small bowel noted. Hernia was identified, which was reduced. After that the significant improvement in the vasculature noted. - Per operative note (05/16/18): Re-exploration, Small bowel resection of ileum, small bowel resection of Yenni limb with gastrojejunostomy, reversal of bypass, primary anastomosis of ileum-ileum, ileum-ileum, and ileum- jejunum, Gastrostomy tube in bypassed stomach, EGD - Per surgery, monitor for abdominal compartment syndrome - Will need f/u surgery in 4-6 weeks to restore GI - Patient extubated 05/16/18 - Current drains include: NGT, gastrostomy tube, left min removed 05/25/18, right min removed 05/23/18 - GI series w/ small bowel (05/24/18): no evidence of postsurgical leak - Discontinued Flagyl 500mg IVPB Q8H (active since 05/15/18-05/27/18) - Discontinued Meropenem 1 gm IVPB Q8H (active since 05/15/18-05/27/18) - Fluconazole 200 mg IV Q24H (active since 05/22/18) - Cultures: Peritoneal Fluid (05/14/18): Pseudomonas Aeruginosa sensitive to Meropenem Wound Culture (05/23/18): Yudith albicans Blood culture (05/15/18, 05/22/18): no growth Urine culture (05/22/18): no growth - Tylenol 975 mg liq q8hrs - Dilaudid 1 mg IV q3hrs PRN - Fentanyl patch q72hrs - Surgery consulted (Dr. Harley- Giron covering, Dr. Samara Denise)- preoperative/intraoperative/postoperative management per surgery, repeat surgery in mid June - GI consulted (Dr. Alvarado) - ID consulted (Dr. Rivera)- d/c abx, continue Diflucan - PT consulted Small bowel obstruction- 2/2 to internal hernia - Pre-op CT A/P (05/13/18): Writhing appearance of mesentric vessels. Mesentric edema. No evidence of bowel obstruction. Whirling appearance of mesentric vessels is nonspecific. Prominent mesentric lymph nodes. Mesentric edema. - GI series w/ small bowel (05/24/18): no evidence of postsurgical leak Leukocytosis, improving- likely 2/2 to ischemic bowel 2/2 to small bowel obstruction and surgeries - Procalcitonin: 0.44 - Cultures: Peritoneal Fluid (05/14/18): Pseudomonas Aeruginosa sensitive to Meropenem Wound Culture (05/23/18): Yudith albicans Blood culture (05/15/18, 05/22/18): no growth Urine culture (05/22/18): no growth Anemia, acute, stable- pt denies blood in stool - Hgb 05/27: 8.4 - Patient received a total of 2 PRBC and 4 FFP - Iron studies pending Tachycardia, persistent- possibly etiologies include pain, infection, anxiety - She is being treated for Left G Tube fluid infection. She has been started on Ativan PRN. She has Dialuadid on board to be used PRN. - Increase Metoprolol Tartrate to 50 mg NG BID with holding parameters Diarrhea, acute - Stool O&P (05/25/18): negative - C. Diff (05/22/18): negative - C. Diff (05/24/18): negative - Stool leukocytes (05/25/18): negative Thombocytosis, improving- suspect reactive - Plt 05/26: 722->620 Anxiety - Patient was taking Xanax for anxiety noted in prior note - Ativan 0.5 mg IV Q8H PRN Hx of Obesity, resolved- s/p gastric bypass surgery in 2013 History of Asthma- patient not in acute exacerbation - Atrovent Q6H T2DM, controlled - From prior note: Admittedly non-compliant - has not taken Januvia for one year - Accuchecks Q6H - Hypoglycemic protocol - HbA1c 5.8 - History of gastric bypass surgery Hypercholesterolemia - From prior note: Pt not taking meds - LDL 38, HDL 14, Chol 104, TG 226 - History of gastric bypass surgery Hx of HTN- since gastric bypass has not taken meds Hx of Hypothyroidism - From prior note: Pt admits non-compliance Hx of KEM- 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 and from prior note from last hospitalization Nicotine use disorder - From prior note: 1ppd x 20 yrs, 1/2 ppd x 3 yrs - Nicoderm 1 patch TD QD V
[2018-05-30 06:28] LABS: BASO # 0.1 K/uL (0.0-0.2); EOS # 0.4 K/uL (0.0-0.7); EOS % 2.8 % (0.0-4.0); HEMOGLOBIN 8.4 g/dL (11.0-16.0); LYMPH # 2.4 K/uL (1.0-4.3); LYMPH % 19.4 % (20.0-40.0); MEAN CELL VOLUME 87.3 fL (81.0-99.0); MEAN CORPUSCULAR HEMOGLOBIN 28.7 pg (27.0-31.0); MEAN CORPUSCULAR HGB CONC 32.9 g/dL (33.0-37.0); MEAN PLATELET VOLUME 7.6 fL (7.2-11.7); MONO % 8.2 % (0.0-10.0); NEUT # 8.5 K/uL (1.8-7.0); NEUT % 68.6 % (50.0-75.0); NRBC % 0.1 % (0.0-2.0); RBC 2.91 Mil/uL (3.80-5.20); RED CELL DISTRIBUTION WIDTH 16.8 % (11.5-14.5); WHITE BLOOD COUNT 12.4 K/uL (4.8-10.8)
[2018-05-30 07:11] LABS: ALB/GLOB RATIO 0.9 (1.0-2.1); ALBUMIN 3.2 g/dL (3.5-5.0); ALT/SGPT 17 U/L (9-52); AST/SGOT 13 U/L (14-36); BLOOD UREA NITROGEN 18 mg/dL (7-17); CALCIUM 8.7 mg/dl (8.6-10.4); GFR NON-AFRICAN AMERICAN > 60
[2018-05-30] MEDS ORDERED: Iohexol 300 100 ML IJ ONE (08:12)
[2018-05-30] MEDS ORDERED: Iohexol 240 (50 ml) ONE (08:14)
--- NOTE | 2018-05-30 08:26 | CP.PCM.PN ---
<Maggie Dailey - Last Filed: 05/30/18 16:46> Subjective - Date & Time of Evaluation Date of Evaluation: 05/30/18 Time of Evaluation: 07:00 - Subjective Subjective: GENERAL SURGERY PROGRESS NOTE FOR DR. TIAN Patient seen and examined at bedside. Denies nausea or vomiting. Reports continued diarrhea despite cholestyramine, immodium. Gastrostomy tube was noted to be dislodged so tube feeds were stopped, the tube was removed, and a Srivastava was placed into the stomach via the formed tract. Objective - Vital Signs/Intake and Output Vital Signs (last 24 hours): Temp Pulse Resp BP Pulse Ox 98.6 F 126 H 20 103/73 99 05/29/18 23:10 05/30/18 01:40 05/29/18 23:10 05/29/18 23:10 05/29/18 23:10 Intake and Output: 05/30/18 05/30/18 06:59 18:59 Intake Total 450 Balance 450 - Medications Medications: Current Medications Acetaminophen (Tylenol 650mg/20.3ml Solution Ud) 975 mg GT Q8 [facility] Last Admin: 05/30/18 05:28 Dose: 975 mg Cholestyramine Resin (Questran) 4 gm PO BID [facility] Last Admin: 05/29/18 19:09 Dose: 4 gm Dextrose (Dextrose 50% Inj) 0 ml IV STAT PRN; Protocol PRN Reason: Hypoglycemia Protocol Last Admin: 05/16/18 23:40 Dose: 50 ml Dextrose (Glutose 15) 0 gm PO ONCE PRN; Protocol PRN Reason: Hypoglycemia Protocol Enoxaparin Sodium (Lovenox) 40 mg SC DAILY [facility] Last Admin: 05/29/18 10:23 Dose: 40 mg Fentanyl (Duragesic) 1 patch TD Q72H [facility] Last Admin: 05/28/18 13:49 Dose: 1 patch Glucagon (Glucagen Diagnostic Kit) 0 mg IM STAT PRN; Protocol PRN Reason: Hypoglycemia Protocol Hydrocortisone (Cortizone 1% Cream) 0 gm TOP TID PRN PRN Reason: Rash Hydromorphone HCl (Dilaudid) 1 mg IVP Q3 PRN PRN Reason: Pain, SEVERE (8-10) Last Admin: 05/30/18 04:32 Dose: 1 mg Dextrose (Dextrose 5% In Water 1000 Ml) 1,000 mls @ 0 mls/hr IV .Q0M PRN; Protocol; Per Protocol PRN Reason: Hypoglycemia Protocol Metronidazole (Flagyl) 500 mg in 100 mls @ 100 mls/hr IVPB Q8H [facility] PRN Reason: Protocol Last Admin: 05/30/18 04:37 Dose: 100 mls/hr Fluconazole 100 mg/ (Miscellaneous) 50 mls @ 100 mls/hr IVPB Q24H [facility] PRN Reason: Protocol Last Admin: 05/29/18 13:05 Dose: 100 mls/hr Insulin Human Regular (Novolin R) 0 unit SC Q6 [facility] PRN Reason: Protocol Last Admin: 05/30/18 06:00 Dose: Not Given Ipratropium [place] (Atrovent) 0.5 mg IH RQ6 [facility] Last Admin: 05/30/18 01:15 Dose: Not Given Lactobacillus Acidophilus (Bacid Acidophilus) 1 cap PEG BID [facility] Last Admin: 05/29/18 19:09 Dose: 1 cap Loperamide HCl (Imodium) 1 mg PO Q2H PRN PRN Reason: Diarrhea Last Admin: 05/30/18 05:28 Dose: 1 mg Lorazepam (Ativan) 0.5 mg IVP Q8H PRN PRN Reason: Anxiety Last Admin: 05/29/18 22:46 Dose: 0.5 mg Metoprolol Tartrate (Lopressor) 50 mg NG BID [facility] Last Admin: 05/29/18 19:08 Dose: 50 mg Nicotine (Nicoderm Cq) 1 patch TD DAILY [facility] Last Admin: 05/29/18 10:23 Dose: 1 patch Pantoprazole Sodium (Protonix Inj) 40 mg IVP DAILY [facility] Last Admin: 05/29/18 10:22 Dose: 40 mg Saliva Substitute (Mouth Kote 236 Ml) 0 ml MM Q6 PRN PRN Reason: Dry mouth Vitamin A (Vitamin A & D Oint Ud Foilpak) 1 ea TOP Q8 PRN PRN Reason: dry lips Last Admin: 05/20/18 11:10 Dose: 1 ea - Labs Labs: 05/30/18 06:16 05/30/18 06:16 PT 16.0 SECONDS (9.7-12.2) H 05/26/18 06:32 INR 1.5 05/26/18 06:32 APTT 33 SECONDS (21-34) 05/25/18 06:16 - Constitutional Appears: Non-toxic, No Acute Distress - Head Exam Head Exam: ATRAUMATIC, NORMAL INSPECTION - Respiratory Exam Respiratory Exam: NORMAL BREATHING PATTERN. absent: Respiratory Distress - Cardiovascular Exam Cardiovascular Exam: Tachycardia - GI/Abdominal Exam GI & Abdominal Exam: Soft, Tenderness (luana-incisional tenderness). absent: Distended, Firm, Guarding, Rigid, Rebound Additional comments: Midline abdominal incision with iodaform packing in between sutures - Neurological Exam Neurological Exam: Alert, Awake, Oriented x3 - Psychiatric Exam Psychiatric exam: Normal Affect, Normal Mood - Skin Skin Exam: Dry, Normal Color, Warm Assessment and Plan - Assessment and Plan (Free Text) Assessment: 38yo F with PMHx of yenni-en-Y gastric bypass in 2014, found to have bowel ischemia secondary to internal hernia. POD#16 s/p Exploratory laparotomy, Reduction of internal hernia, DANNI, Drainage of abdominal collections, temporary abdominal closure (fascia left open), EGD. POD#13 s/p Re-exploration, Small bowel resection of ileum, small bowel resection of Yenni limb including previous gastrojejunostomy, reversal of bypass , primary anastomosis of ileum-ileum, ileum-ileum, and ileum-jejunum, Gastrostomy tube in bypassed stomach, EGD - Tube study = tube in stomach - May resume tube feeds - Packing removed and replaced and dressing changed on midline incision - Continue abx per ID - C/w DVT ppx - Discussed plan with Dr. Cricket Dailey PGY-4 <Gómez Harley - Last Filed: 06/01/18 14:17> Objective - Vital Signs/Intake and Output Vital Signs (last 24 hours): Temp Pulse Resp BP Pulse Ox 97.9 F 122 H 20 121/86 98 06/01/18 07:00 06/01/18 08:00 06/01/18 07:00 06/01/18 07:00 06/01/18 07:00 Intake and Output: 06/01/18 06/01/18 06:59 18:59 Intake Total 720 Output Total 900 Balance -180 - Medications Medications: Current Medications Acetaminophen (Tylenol 650mg/20.3ml Solution Ud) 975 mg GT Q8 [facility] Last Admin: 06/01/18 13:50 Dose: 975 mg Cholestyramine Resin (Questran) 4 gm PO BID [facility] Last Admin: 06/01/18 10:02 Dose: 4 gm Dextrose (Dextrose 50% Inj) 0 ml IV STAT PRN; Protocol PRN Reason: Hypoglycemia Protocol Last Admin: 05/16/18 23:40 Dose: 50 ml Dextrose (Glutose 15) 0 gm PO ONCE PRN; Protocol PRN Reason: Hypoglycemia Protocol Diphenhydramine HCl (Benadryl) 25 mg IVP HS PRN PRN Reason: Insomnia Last Admin: 05/31/18 23:46 Dose: 25 mg Enoxaparin Sodium (Lovenox) 40 mg SC DAILY [facility] Last Admin: 06/01/18 10:02 Dose: 40 mg Ergocalciferol (Drisdol 50,000 Intl Units Cap) 1 cap PO Q7D [facility] Stop: 07/20/18 10:31 Last Admin: 06/01/18 12:13 Dose: 1 cap Escitalopram Oxalate (Lexapro) 5 mg NG DAILY [facility] Last Admin: 06/01/18 10:02 Dose: 5 mg Glucagon (Glucagen Diagnostic Kit) 0 mg IM STAT PRN; Protocol PRN Reason: Hypoglycemia Protocol Hydrocortisone (Cortizone 1% Cream) 0 gm TOP TID PRN PRN Reason: Rash Hydromorphone HCl (Dilaudid) 1.5 mg IVP Q3 PRN PRN Reason: Pain, SEVERE (8-10) Last Admin: 06/01/18 13:49 Dose: 1.5 mg Metronidazole (Flagyl) 500 mg in 100 mls @ 100 mls/hr IVPB Q8H [facility] PRN Reason: Protocol Last Admin: 06/01/18 12:12 Dose: 100 mls/hr Potassium Chloride/Dextrose/Sod Cl (Potassium Chl 30 Meq In D5-1/2ns) 1,000 mls @ 80 mls/hr IV .[id number] [facility] Last Admin: 06/01/18 05:26 Dose: Not Given Insulin Human Regular (Novolin R) 0 unit SC Q6 [facility] PRN Reason: Protocol Last Admin: 06/01/18 12:13 Dose: Not Given Ipratropium [place] (Atrovent) 0.5 mg IH RQ6 [facility] Last Admin: 06/01/18 08:01 Dose: 0.5 mg Lactobacillus Acidophilus (Bacid Acidophilus) 1 cap PEG BID [facility] Last Admin: 06/01/18 10:02 Dose: 1 cap Loperamide HCl (Imodium) 1 mg PO Q2H PRN PRN Reason: Diarrhea Last Admin: 06/01/18 10:01 Dose: 1 mg Lorazepam (Ativan) 1 mg IVP BID [facility] Last Admin: 06/01/18 10:01 Dose: 1 mg Metoprolol Tartrate (Lopressor) 5 mg IVP Q6H [facility] Last Admin: 06/01/18 10:01 Dose: 5 mg Nicotine (Nicoderm Cq) 1 patch TD DAILY [facility] Last Admin: 06/01/18 10:02 Dose: 1 patch Nystatin (Mycostatin Cream) 0 ea TOP TID [facility] Last Admin: 06/01/18 13:50 Dose: 1 dose Pantoprazole Sodium (Protonix Inj) 40 mg IVP DAILY [facility] Last Admin: 06/01/18 10:02 Dose: 40 mg Saliva Substitute (Mouth Kote 236 Ml) 0 ml MM Q6 PRN PRN Reason: Dry mouth Vitamin A (Vitamin A & D Oint Ud Foilpak) 1 ea TOP Q8 PRN PRN Reason: dry lips Last Admin: 05/20/18 11:10 Dose: 1 ea - Labs Labs: 06/01/18 07:14 06/01/18 07:14 PT 16.0 SECONDS (9.7-12.2) H 05/26/18 06:32 INR 1.5 05/26/18 06:32 APTT 33 SECONDS (21-34) 05/25/18 06:16 Attending/Attestation - Attestation I have personally seen and examined this patient.: Yes I have fully participated in the care of the patient.: Yes I have reviewed all pertinent clinical information, including history, physical exam and plan: Yes Notes (Text): Pt was seen and examined at bedside Agree with above note and assessment Pt is doing much better Pt was transferred to floor Last week Pt is tolerating tube feed Will discuss optimal timing with for reoperation Plan d.w pt and primary team in detail Risk and benefit explained in detail.
[2018-05-30] MEDS: Enoxaparin 40 mg Syringe SC SCH (10:47)
[2018-05-30] MEDS: Lactobacillus Acidophilus 500 MU Cap PEG SCH ×2 (10:51→18:25)
[2018-05-30] MEDS: Cholestyramine 4 gm/Pkt UD PO SCH ×2 (10:52→18:27)
--- NOTE | 2018-05-30 12:17 | RAD ---
Abdomen four views History: G tube displacement. Comparison: None available. Findings: Gastrostomy tube in place. Contrast extending into the stomach. Relative paucity of bowel gas. Surgical clips in the left upper abdomen. Nodular radiopaque density projecting over the left upper abdomen. Impression: Gastrostomy tube in place. Contrast extending into the stomach. Relative paucity of bowel gas. Surgical clips in the left upper abdomen. Nodular radiopaque density projecting over the left upper abdomen.
--- NOTE | 2018-05-30 12:24 | CP.PCM.PN ---
Subjective - Date & Time of Evaluation Date of Evaluation: 05/30/18 Time of Evaluation: 12:12 - Subjective Subjective: Medical Attending Note: Patient seen and examined at bedside this AM. Ojeda in place of gastrostomy tube fell out this morning per patient. She reports she is doing well. No complaints except for discharge around the tube. I was informed by my resident, Dr. Yanelis Abarca, when I spoke with surgery resident, Dr Tamia Romano that patient has output 4800 L viaher NGT tube, which there is strong suspicion that patient is taking oral intake in spite of her strict NPO. I was informed by the tank charger, Mikayla and her day-time Rn, Gale Mars that she was witnessed overnight by the evening staff going to the ice machine and drinking fluid. Again, patient is strict NPO given the nature of her surgery. Patient seen and re-examined with her Rn, Gale Smith. I spoke with the patient following this conversation and I asked her if she is taking ice chips which she denied and if she taking liquids which she denies. I told her the findings regarding that she was witnessed taking ice chips and drinking fluid, which prompted her to get very angry, very agitated, demanding for surgery today and tomorrow though she has been told 4-6 weeks to wait to restore GI motiliy and she was further upset that I am willing to put [facility] system given she is not abiding by the strict NPO order. She also reports the gastrostomy tube fell out this morning. I was informed that the gastrostomy tube is usually inflated and stitched so its difficult for it to fall out. It was replaced by Ojeda by surgery to maintain patency. Patient has had overlying yeast which she has been on antifungal medication for. Patient proceed to curse at me and her nurse Gale Cordova reporting "fuck you guys, fuck the hospital, i want to fucking leave and and I dont care" and that we are witholding her pain medications and she is being "endorsed between nursing staff that she is pain addict" and that "she had asked for pain medication 5:30AM but was told to wait until 7:30AM". Please note: patient over the weekend, was added Fentanyl patch which is a strong narcotic pain medication in addition to Dilaudid Iv. I updated the surgeon, Dr. Harley regarding this outburst and circumstances ; he reports the feeding tube is ok, needs the TLC removed and switched to PICC line to prevent infection suggested by IR, and that he will speak with the bariatric surgeon, Dr. Mccray to plan for future surgery; but he reports she cannot AMA, and to please ask psych and speak with patient's mother. I spoke with patient's mother, Conrad over the phone, she too cursed me out with multiple "fucks", reports her daughter was upset, she has going through her own medical problems, unable to move to and from, and has her own battles with pain medication from she has been successful from. She also admits that her daughter is addicted to pain medication, that she would steal percocets in addition to pain medication received from Dr. Zhou's office. She also accused me of "performing the initial gastric bypass surgery" which I told her I was not involved in, and she reports no one is addressing the discharge from peg, which we have, and that in the iCU she was on IV fentanyl; which I did explained that her pain medications has been changed throughout the admission given the clinical condition, we understand that she has pain tolerance contributing to her narcotic medications, and we are balancing that with her post-operative pain which she is still recovering from. She reports "her daughter threaten to go home and " and she does not want that to happen; and I agree and I told her that i dont want that to happen neither. The mother's concern is the gastrostomy tube being out and I did tell her that is a ojeda place in, but will re-evaluate to make sure. I also let her know that the patient needs to allow to speak with her which I have no problems updating her in regards to her daughter's hospitalization with which she reports she does not, that she has been signing all the consents. Please note during the course of this conversation, she was threaten to blog about this experience that we are not treating this yeast from the gastrostomy tube, and she is also asking to stop all her pain medications. I told her that I cannot abruptly stop her narcotic pain mediations. Patient seen and [id number] following request by patient's Mother, Conrad to see the area where the gastrostomy tube was and the ojeda is in place. Patient is very agitated threatening to leave, and upset over the [facility] system , which we have not placed inside of her room. I spoke with patient's advocate Ana, and I updated her as well in regards to above. She saw the patient, the patient will admitted that she did drink liquids and ice chips and that she does not care. She wants the surgery today or tomorrow. I saw her again--->I re-evaluated the are of the gastrostomy tube, the ojeda in place; there is yeast; dressing was changed this morning. Teddy did finally admit to me that she took ice chips and water. She reports she refuses the Saliva because it caused mouth sores whiich she does not have any. She also wants the Dilaudid increased to 2mg IV Q3H and Ativan 1 IV Q8H which I told her I will not. She reports she does not want the Fentanyl patch, I explained to her that it is a strong pain medication like Dilaudid but she does not want. I did RE-EXPLAIN that she cannot take ice chips/liquids that it will prevent her recovery and future surgery and that although she thinks her belly is getting better with water, she was recommended for complete bowel rest which means nothing by mouth until the surgeon tells us so. I also did tell her that I will ask psychiatry to come see her, that they are familiar with pain medications, and her underlying anxiety. I also explained to her that her future surgery is dependent on "homework" from both medicine and her. She cannot take liquids/ice chips because that will prevent her surgery and that medically see her daily. Patient is aware that we will remove the TLC to replace with PICC line via IR which she is amenable to. I did follow-up with her Rn, Gale and patient advocate Ana. I also followed up with the surgeon as well. Objective - Vital Signs/Intake and Output Vital Signs (last 24 hours): Temp Pulse Resp BP Pulse Ox 97.9 F 134 H 18 114/82 99 05/30/18 07:00 05/30/18 08:32 05/30/18 07:00 05/30/18 08:32 05/30/18 07:00 Intake and Output: 05/30/18 05/30/18 06:59 18:59 Intake Total 450 Balance 450 - Medications Medications: Current Medications Acetaminophen (Tylenol 650mg/20.3ml Solution Ud) 975 mg GT Q8 [facility] Last Admin: 05/30/18 05:28 Dose: 975 mg Cholestyramine Resin (Questran) 4 gm PO BID [facility] Last Admin: 05/30/18 10:52 Dose: Not Given Dextrose (Dextrose 50% Inj) 0 ml IV STAT PRN; Protocol PRN Reason: Hypoglycemia Protocol Last Admin: 05/16/18 23:40 Dose: 50 ml Dextrose (Glutose 15) 0 gm PO ONCE PRN; Protocol PRN Reason: Hypoglycemia Protocol Enoxaparin Sodium (Lovenox) 40 mg SC DAILY [facility] Last Admin: 05/30/18 10:47 Dose: 40 mg Fentanyl (Duragesic) 1 patch TD Q72H [facility] Last Admin: 05/28/18 13:49 Dose: 1 patch Glucagon (Glucagen Diagnostic Kit) 0 mg IM STAT PRN; Protocol PRN Reason: Hypoglycemia Protocol Hydrocortisone (Cortizone 1% Cream) 0 gm TOP TID PRN PRN Reason: Rash Hydromorphone HCl (Dilaudid) 1 mg IVP Q3 PRN PRN Reason: Pain, SEVERE (8-10) Last Admin: 05/30/18 11:41 Dose: 1 mg Dextrose (Dextrose 5% In Water 1000 Ml) 1,000 mls @ 0 mls/hr IV .Q0M PRN; Protocol; Per Protocol PRN Reason: Hypoglycemia Protocol Metronidazole (Flagyl) 500 mg in 100 mls @ 100 mls/hr IVPB Q8H [facility] PRN Reason: Protocol Last Admin: 05/30/18 04:37 Dose: 100 mls/hr Fluconazole 100 mg/ (Miscellaneous) 50 mls @ 100 mls/hr IVPB Q24H [facility] PRN Reason: Protocol Last Admin: 05/29/18 13:05 Dose: 100 mls/hr Insulin Human Regular (Novolin R) 0 unit SC Q6 [facility] PRN Reason: Protocol Last Admin: 05/30/18 06:00 Dose: Not Given Ipratropium [place] (Atrovent) 0.5 mg IH RQ6 [facility] Last Admin: 05/30/18 01:15 Dose: Not Given Lactobacillus Acidophilus (Bacid Acidophilus) 1 cap PEG BID [facility] Last Admin: 05/30/18 10:51 Dose: Not Given Loperamide HCl (Imodium) 1 mg PO Q2H PRN PRN Reason: Diarrhea Last Admin: 05/30/18 05:28 Dose: 1 mg Lorazepam (Ativan) 0.5 mg IVP Q8H PRN PRN Reason: Anxiety Last Admin: 05/30/18 10:03 Dose: 0.5 mg Metoprolol Tartrate (Lopressor) 50 mg NG BID [facility] Last Admin: 05/30/18 10:51 Dose: Not Given Nicotine (Nicoderm Cq) 1 patch TD DAILY [facility] Last Admin: 05/30/18 10:50 Dose: Not Given Pantoprazole Sodium (Protonix Inj) 40 mg IVP DAILY [facility] Last Admin: 05/30/18 10:46 Dose: 40 mg Saliva Substitute (Mouth Kote 236 Ml) 0 ml MM Q6 PRN PRN Reason: Dry mouth Vitamin A (Vitamin A & D Oint Ud Foilpak) 1 ea TOP Q8 PRN PRN Reason: dry lips Last Admin: 05/20/18 11:10 Dose: 1 ea - Labs Labs: 05/30/18 06:16 05/30/18 06:16 PT 16.0 SECONDS (9.7-12.2) H 05/26/18 06:32 INR 1.5 05/26/18 06:32 APTT 33 SECONDS (21-34) 05/25/18 06:16 - Constitutional Appears: Non-toxic, No Acute Distress, Agitated - Eye Exam Eye Exam: EOMI - ENT Exam ENT Exam: Mucous Membranes Moist - Respiratory Exam Respiratory Exam: Clear to Ausculation Bilateral, NORMAL BREATHING PATTERN. absent: Rales, Rhonchi, Wheezes - Cardiovascular Exam Cardiovascular Exam: Tachycardia, +S1, +S2 - GI/Abdominal Exam GI & Abdominal Exam: Soft, Normal Bowel Sounds. absent: Distended, Firm, Guarding, Tenderness, Rebound Additional comments: midline dress; white dressing discharge noted. ojeda in place - Extremities Exam Extremities Exam: absent: Pedal Edema, Tenderness - Neurological Exam Neurological Exam: Alert, Awake - Psychiatric Exam Psychiatric exam: Agitated, Anxious, Manic - Skin Skin Exam: Dry, Intact, Normal Color, Warm Assessment and Plan (1) Ischemic bowel disease Status: Acute (2) Obesity (BMI 30-39.9) Status: Acute (3) Small bowel obstruction Status: Acute (4) Prophylactic measure Status: Acute
--- NOTE | 2018-05-30 14:37 | PCM.PSYCH ---
Initial Psychiatric Evaluation - Initial Psychiatric Evaluation Type of Admission: Voluntary Legal Status: Capacity Chief Complaint (in patient's own words): "I am very very anxious" History of Present Illness and Precipitating Events: Th ept is seen, chart reviewed and case discussed Consultation is requested bc she was threatening to leave AMA due to excessive anxiety She is a 38 y/o WF, single, has two adult children, lives with one of them She has been here for more than a week and takes 0.5 ativan IV (she is NPO) She reports anxiety, tension, irritability and depression. Not suicidal/homicidal She knows her illness and consequences of not getting treatment She is OK with staying provided she is helped for her anxiety The pt claims she was on xanax 1 mg TID outside No SSRIS No past psych hx except for xanax Family hx : Brother has bipolar d/o and one son has psych issues too Medical hx: DM, Asthm and HTN Current Medications: Active Medications Generic Name Dose Route Start Last Admin Trade Name Freq PRN Reason Stop Dose Admin Acetaminophen 975 mg 05/25/18 15:08 05/30/18 05:28 Tylenol 650mg/20.3ml Solution Ud GT 975 mg Q8 [facility] Administration Cholestyramine Resin 4 gm 05/29/18 10:00 05/30/18 10:52 Questran PO Not Given BID [facility] Dextrose 0 ml 05/15/18 08:36 05/16/18 23:40 Dextrose 50% Inj IV 50 ml STAT PRN Administration Hypoglycemia Protocol Protocol Dextrose 0 gm 05/15/18 08:36 Glutose 15 PO ONCE PRN Hypoglycemia Protocol Protocol Enoxaparin Sodium 40 mg 05/27/18 10:00 05/30/18 10:47 Lovenox SC 40 mg DAILY [facility] Administration Glucagon 0 mg 05/15/18 08:36 Glucagen Diagnostic Kit IM STAT PRN Hypoglycemia Protocol Protocol Hydrocortisone 0 gm 05/26/18 17:27 Cortizone 1% Cream TOP TID PRN Rash Hydromorphone HCl 1.5 mg 05/30/18 13:22 Dilaudid IVP Q3 PRN Pain, SEVERE (8-10) Metronidazole 500 mg in 100 mls @ 100 mls/hr 05/15/18 12:00 05/30/18 12:55 Flagyl IVPB 100 mls/hr Q8H [facility] Administration Protocol Fluconazole 100 mg/ 50 mls @ 100 mls/hr 05/22/18 13:30 05/29/18 13:05 Miscellaneous IVPB 100 mls/hr Q24H [facility] Administration Protocol Insulin Human Regular 0 unit 05/20/18 00:00 05/30/18 06:00 Novolin R SC Not Given Q6 [facility] Protocol Ipratropium [place] 0.5 mg 05/20/18 15:15 05/30/18 14:31 Atrovent IH Not Given RQ6 [facility] Lactobacillus Acidophilus 1 cap 05/25/18 10:00 05/30/18 10:51 Bacid Acidophilus PEG Not Given BID [facility] Loperamide HCl 1 mg 05/28/18 13:13 05/30/18 05:28 Imodium PO 1 mg Q2H PRN Administration Diarrhea Lorazepam 0.5 mg 05/25/18 09:00 05/30/18 10:03 Ativan IVP 0.5 mg Q8H PRN Administration Anxiety Metoprolol Tartrate 50 mg 05/27/18 23:28 05/30/18 10:51 Lopressor NG Not Given BID [facility] Nicotine 1 patch 05/18/18 10:00 05/30/18 10:50 Nicoderm Cq TD Not Given DAILY [facility] Pantoprazole Sodium 40 mg 05/23/18 10:00 05/30/18 10:46 Protonix Inj IVP 40 mg DAILY [facility] Administration Saliva Substitute 0 ml 05/22/18 21:45 Mouth Kote 236 Ml MM Q6 PRN Dry mouth Vitamin A 1 ea 05/20/18 10:26 05/20/18 11:10 Vitamin A & D Oint Ud Foilpak TOP 1 ea Q8 PRN Administration dry lips Past Psychiatric History - Past Psychiatric History Previous Treatment History: None Pertinent Medical Hx (Current Medical&Sleep Prob, Allergies): Allergies Allergy/AdvReac Type Severity Reaction Status Date / Time moxifloxacin [From Avelox] Allergy Severe RASH Verified 05/13/18 23:21 Albuterol HFA [Ventolin HFA 90 mcg/actuation (8 g)] 2 puff INH PRN PRN #1 inhaler 03/15/17 Fluticasone/Salmeterol 500/50 [Advair Diskus 500/50] 1 puff INH RQ12 #1 dsk 02/24 ALPRAZolam [Xanax] 1 mg PO TID 05/10/17 Omeprazole 40 mg PO DAILY 05/10/17 Ranitidine HCl [Zantac] 150 mg PO DAILY 05/10/17 Tizanidine HCl [Zanaflex] 4 mg PO BID 05/10/17 oxyCODONE [oxyCODONE Immediate Release Tab] 30 mg PO TID PRN 05/10/17 Review of Systems - Psychiatric Psychiatric: Abnormal Sleep Pattern, Anhedonia, Anxiety, Depression, Difficulty Concentrating, Irritability. absent: Hallucinations, Homicidal Ideation, Suicidal Ideation Mental Status Examination - Personal Presentation Personal Presentation: Looks stated age - Affect Affect: Constricted - Motor Activity Motor Activity: Calm - Reliability in Providing Information Reliability in Providing Information: Good - Speech Speech: Organized - Mood Mood: Depressed, Anxious - Formal Thought Process Formal Thought Process: No Impairment - Cognitive Functions Orientation: Person, Place, Situation, Time Sensorium: Alert Attention/Concentration: Attentive Estimate of Intelligence: Average Judgement: Intact, as evidence by: Insight regarding need for hospitalization Memory: Recent intact, as evidence by: Ability to recall events of the day, Remote intact, as evidenced by: Abilit to recall sig. life events - Risk Risk: Diminished functioning - Strength & Assets Inventory Strength & Assets Inventory: Cooperative DSM 5 DX - DSM 5 DSM 5 Diagnosis: Panic disorder r/o KATINA r/o personality d/o Depressive d/o - unspecified - Recommended/Plan of Treatment Treatment Recommendations and Plan of Treatment: Increase ativan to 1 mg IVP BID Lexapro thru NGT Support and psychoed Benadryl for insomnia CBT 31 min
[2018-05-30] MEDS ORDERED: DiphenhydrAMINE 50 mg/ml Inj IM PRN (14:39)
[2018-05-30] MEDS: Fluconazole IV 200mg/100 ml NS 100 MG in Premixed IV 1 EA IVPB SCH (14:49)
--- NOTE | 2018-05-30 20:34 | CP.PCM.PN ---
Subjective - Date & Time of Evaluation Date of Evaluation: 05/30/18 Time of Evaluation: 17:35 - Subjective Subjective: dictated Objective - Vital Signs/Intake and Output Vital Signs (last 24 hours): Temp Pulse Resp BP Pulse Ox 98.4 F 130 H 20 110/76 97 05/30/18 15:43 05/30/18 16:00 05/30/18 15:43 05/30/18 15:43 05/30/18 15:43 Intake and Output: 05/30/18 05/31/18 18:59 06:59 Intake Total 650 Output Total 2375 Balance -1725 - Medications Medications: Current Medications Acetaminophen (Tylenol 650mg/20.3ml Solution Ud) 975 mg GT Q8 [facility] Last Admin: 05/30/18 05:28 Dose: 975 mg Cholestyramine Resin (Questran) 4 gm PO BID [facility] Last Admin: 05/30/18 18:27 Dose: 4 gm Dextrose (Dextrose 50% Inj) 0 ml IV STAT PRN; Protocol PRN Reason: Hypoglycemia Protocol Last Admin: 05/16/18 23:40 Dose: 50 ml Dextrose (Glutose 15) 0 gm PO ONCE PRN; Protocol PRN Reason: Hypoglycemia Protocol Diphenhydramine HCl (Benadryl) 25 mg IM HS PRN PRN Reason: Insomnia Enoxaparin Sodium (Lovenox) 40 mg SC DAILY [facility] Last Admin: 05/30/18 10:47 Dose: 40 mg Escitalopram Oxalate (Lexapro) 5 mg NG DAILY [facility] Glucagon (Glucagen Diagnostic Kit) 0 mg IM STAT PRN; Protocol PRN Reason: Hypoglycemia Protocol Hydrocortisone (Cortizone 1% Cream) 0 gm TOP TID PRN PRN Reason: Rash Hydromorphone HCl (Dilaudid) 1.5 mg IVP Q3 PRN PRN Reason: Pain, SEVERE (8-10) Last Admin: 05/30/18 17:53 Dose: 1.5 mg Metronidazole (Flagyl) 500 mg in 100 mls @ 100 mls/hr IVPB Q8H [facility] PRN Reason: Protocol Last Admin: 05/30/18 12:55 Dose: 100 mls/hr Fluconazole 100 mg/ (Miscellaneous) 50 mls @ 100 mls/hr IVPB Q24H [facility] PRN Reason: Protocol Last Admin: 05/30/18 14:49 Dose: 100 mls/hr Insulin Human Regular (Novolin R) 0 unit SC Q6 [facility] PRN Reason: Protocol Last Admin: 05/30/18 18:26 Dose: 1 unit Ipratropium [place] (Atrovent) 0.5 mg IH RQ6 [facility] Last Admin: 05/30/18 19:31 Dose: 0.5 mg Lactobacillus Acidophilus (Bacid Acidophilus) 1 cap PEG BID [facility] Last Admin: 05/30/18 18:25 Dose: 1 cap Loperamide HCl (Imodium) 1 mg PO Q2H PRN PRN Reason: Diarrhea Last Admin: 05/30/18 05:28 Dose: 1 mg Lorazepam (Ativan) 1 mg IVP BID [facility] Last Admin: 05/30/18 19:10 Dose: 1 mg Metoprolol Tartrate (Lopressor) 50 mg NG BID [facility] Last Admin: 05/30/18 18:26 Dose: 50 mg Nicotine (Nicoderm Cq) 1 patch TD DAILY [facility] Last Admin: 05/30/18 10:50 Dose: Not Given Pantoprazole Sodium (Protonix Inj) 40 mg IVP DAILY [facility] Last Admin: 05/30/18 10:46 Dose: 40 mg Saliva Substitute (Mouth Kote 236 Ml) 0 ml MM Q6 PRN PRN Reason: Dry mouth Vitamin A (Vitamin A & D Oint Ud Foilpak) 1 ea TOP Q8 PRN PRN Reason: dry lips Last Admin: 05/20/18 11:10 Dose: 1 ea - Labs Labs: 05/30/18 06:16 05/30/18 06:16 PT 16.0 SECONDS (9.7-12.2) H 05/26/18 06:32 INR 1.5 05/26/18 06:32 APTT 33 SECONDS (21-34) 05/25/18 06:16
[2018-05-30] MEDS ORDERED: DiphenhydrAMINE 50 mg/ml Inj IVP STA (22:12)
[2018-05-31] MEDS: (Novolin R) Insulin Human Regular 100 units/ml vial SC SCH ×5 (00:48→23:53)
[2018-05-31] MEDS: Ipratropium 0.02% Inhal Soln (0.5 mg/2.5 ml) UD IH SCH ×4 (02:29→20:12)
[2018-05-31] MEDS: metroNIDAZOLE IV 500 mg/100 ml 500 MG/100 ML BAG IVPB SCH ×4 (04:00→21:15)
[2018-05-31] MEDS: Acetaminophen 650mg/20.3ml solution UD GT SCH ×3 (06:09→21:35)
[2018-05-31] MEDS: Loperamide Hydrochloride 1 mg/5 ml Cup PO PRN ×3 (06:09→13:43)
--- NOTE | 2018-05-31 06:16 | CP.PCM.PN ---
<Yanelis Hudson - Last Filed: 05/31/18 19:14> Subjective - Date & Time of Evaluation Date of Evaluation: 05/31/18 Time of Evaluation: 09:10 - Subjective Subjective: PGY-1 Yanelis Hudson D.O. Medicine progress note for Dr. Franki Denise's service: Patient is seen and examined this morning. The team had a long discussion with patient yesterday regarding strict NPO status. This was also reiterated to the patients day nurse. Patient reports feeling a little better than yesterday and more calm. She continues to feel as though her mouth is excessively dry. Per surgery, patient is currently able to be fed and receive meds through the Srivastava in place of the gastrostomy tube. The patient also reports that her incision site is draining a lot and that surgery has to keep replacing her dressings. Patient's diarrhea is decreasing in frequency- 5x yesterday. Patient re-examined in afternoon. Surgery has placed a colostomy bag over open incision site as they believe possibly fecal matter is draining through fistula. Objective - Vital Signs/Intake and Output Vital Signs (last 24 hours): Temp Pulse Resp BP Pulse Ox 98.1 F 120 H 20 109/79 96 05/31/18 04:30 05/31/18 04:30 05/31/18 04:30 05/31/18 04:30 05/31/18 04:30 Intake and Output: 05/30/18 05/31/18 18:59 06:59 Intake Total 650 Output Total 2375 Balance -1725 - Medications Medications: Current Medications Acetaminophen (Tylenol 650mg/20.3ml Solution Ud) 975 mg GT Q8 [facility] Last Admin: 05/31/18 06:09 Dose: 975 mg Cholestyramine Resin (Questran) 4 gm PO BID [facility] Last Admin: 05/30/18 18:27 Dose: 4 gm Dextrose (Dextrose 50% Inj) 0 ml IV STAT PRN; Protocol PRN Reason: Hypoglycemia Protocol Last Admin: 05/16/18 23:40 Dose: 50 ml Dextrose (Glutose 15) 0 gm PO ONCE PRN; Protocol PRN Reason: Hypoglycemia Protocol Diphenhydramine HCl (Benadryl) 25 mg IM HS PRN PRN Reason: Insomnia Enoxaparin Sodium (Lovenox) 40 mg SC DAILY [facility] Last Admin: 05/30/18 10:47 Dose: 40 mg Escitalopram Oxalate (Lexapro) 5 mg NG DAILY [facility] Last Admin: 05/30/18 22:01 Dose: 5 mg Glucagon (Glucagen Diagnostic Kit) 0 mg IM STAT PRN; Protocol PRN Reason: Hypoglycemia Protocol Hydrocortisone (Cortizone 1% Cream) 0 gm TOP TID PRN PRN Reason: Rash Hydromorphone HCl (Dilaudid) 1.5 mg IVP Q3 PRN PRN Reason: Pain, SEVERE (8-10) Last Admin: 05/31/18 03:59 Dose: 1.5 mg Metronidazole (Flagyl) 500 mg in 100 mls @ 100 mls/hr IVPB Q8H [facility] PRN Reason: Protocol Last Admin: 05/31/18 04:00 Dose: 100 mls/hr Insulin Human Regular (Novolin R) 0 unit SC Q6 [facility] PRN Reason: Protocol Last Admin: 05/31/18 00:48 Dose: Not Given Ipratropium [place] (Atrovent) 0.5 mg IH RQ6 [facility] Last Admin: 05/31/18 02:29 Dose: Not Given Lactobacillus Acidophilus (Bacid Acidophilus) 1 cap PEG BID [facility] Last Admin: 05/30/18 18:25 Dose: 1 cap Loperamide HCl (Imodium) 1 mg PO Q2H PRN PRN Reason: Diarrhea Last Admin: 05/31/18 06:09 Dose: 1 mg Lorazepam (Ativan) 1 mg IVP BID [facility] Last Admin: 05/30/18 19:10 Dose: 1 mg Metoprolol Tartrate (Lopressor) 50 mg NG BID [facility] Last Admin: 05/30/18 18:26 Dose: 50 mg Nicotine (Nicoderm Cq) 1 patch TD DAILY [facility] Last Admin: 05/30/18 10:50 Dose: Not Given Nystatin (Mycostatin Cream) 0 ea TOP TID [facility] Pantoprazole Sodium (Protonix Susp) 40 mg PO DAILY [facility] Saliva Substitute (Mouth Kote 236 Ml) 0 ml MM Q6 PRN PRN Reason: Dry mouth Vitamin A (Vitamin A & D Oint Ud Foilpak) 1 ea TOP Q8 PRN PRN Reason: dry lips Last Admin: 05/20/18 11:10 Dose: 1 ea - Labs Labs: 05/30/18 06:16 05/30/18 06:16 PT 16.0 SECONDS (9.7-12.2) H 05/26/18 06:32 INR 1.5 05/26/18 06:32 APTT 33 SECONDS (21-34) 05/25/18 06:16 - Constitutional Appears: Non-toxic, No Acute Distress - Head Exam Head Exam: ATRAUMATIC, NORMAL INSPECTION, NORMOCEPHALIC - Eye Exam Eye Exam: EOMI, Normal appearance, PERRL - ENT Exam ENT Exam: Mucous Membranes Moist, Normal Exam - Neck Exam Neck Exam: Normal Inspection Additional comments: TLC on R side - Respiratory Exam Respiratory Exam: Clear to Ausculation Bilateral, NORMAL BREATHING PATTERN - Cardiovascular Exam Cardiovascular Exam: REGULAR RHYTHM, +S1, +S2 - GI/Abdominal Exam GI & Abdominal Exam: Soft, Normal Bowel Sounds Additional comments: Srivastava cath in place of G-tube, bandages over cath and surgical incision midline - Rectal Exam Rectal Exam: Deferred - Extremities Exam Extremities Exam: Normal Capillary Refill, Normal Inspection Additional comments: healing lesion on L heel- no signs of infection blood blister on upper L arm improving- dried, raised, no signs of infection - Back Exam Back Exam: NORMAL INSPECTION - Neurological Exam Neurological Exam: Alert, Awake, CN II-XII Intact, Oriented x3 - Psychiatric Exam Psychiatric exam: Normal Affect, Normal Mood - Skin Skin Exam: Dry, Intact, Normal Color, Warm. absent: Rash Assessment and Plan - Assessment and Plan (Free Text) Assessment: Patient is a 37 yo female with a history of gastric bypass in 2013 who presented with severe abdominal pain. She was found to have bowel ischemia 2/2 internal hernia. Patient underwent ex lap on 05/14 and again on 05/16. She will need a repeat surgery 4-6 weeks from the first. She currently has an NGT and is utilizing a G tube for nutrition/meds. Strict NPO was reinforced with both patient and nurses. Plan: Ischemic bowel disease- 2/2 to internal hernias producing bowel obstruction - CXR (05/14/18): no infiltrate, pleural effusion, or pneumothorax b/l. Diminished inspiratory volume question. No acute cardiovascular disease. - Lactate: 3.6 (pre-op)-->2.4 (post-op)-->2.3-->1.5-->1.6-->0.9 - Initially stool occult blood positive- patient denies bloody BMs presently , Hgb stable - Patient required emergent surgical intervention on 05/14/18 and transferred to ICU. Patient had a second surgery on 05/16/18. - Per operative note (05/14/18): Diagnostic laparoscopy, Exploratory laparotomy, Reduction of internal hernia, Lysis of adhesions, Drainage of abdominal collections, temporary abdominal closure, EGD. Ischemia of yenni limb, internal hernia. Naveed drain stitched to distal common limb - Per ICU evaluation noted: Patient underwent emergency laparotomy for possible ischemic bowel. Patient had GI bleed. In the operating room patient underwent extensive exploratory laparotomy. Significant gangrene of the small bowel noted. Hernia was identified, which was reduced. After that the significant improvement in the vasculature noted. - Per operative note (05/16/18): Re-exploration, Small bowel resection of ileum, small bowel resection of Yenni limb with gastrojejunostomy, reversal of bypass, primary anastomosis of ileum-ileum, ileum-ileum, and ileum- jejunum, Gastrostomy tube in bypassed stomach, EGD - Per surgery, monitor for abdominal compartment syndrome - Will need f/u surgery in 4-6 weeks from original surgery date (05/14) to restore GI - Patient extubated 05/16/18 - Current drains include: NGT, gastrostomy tube- temporary Srivastava, left min removed 05/25/18, right min removed 05/23/18 - GI series w/ small bowel (05/24/18): no evidence of postsurgical leak - Discontinued Meropenem 1 gm IVPB Q8H (active since 05/15/18-05/27/18) - Flagyl 500mg IVPB Q8H (active since 05/15/18) - Fluconazole cream TID for G-tube site - Cultures: Peritoneal Fluid (05/14/18): Pseudomonas Aeruginosa sensitive to Meropenem Wound Culture (05/23/18): Yudith albicans Blood culture (05/15/18, 05/22/18): no growth Urine culture (05/22/18): no growth - F/u wound Cx from incision site 05/31 - Tylenol 975 mg liq q8hrs - Dilaudid 1.5 mg IV q3hrs PRN - Surgery consulted (Dr. Harley, Dr. Samara Denise)- preoperative/ intraoperative/postoperative management per surgery, repeat surgery in mid June - GI consulted (Dr. Alvarado) - ID consulted (Dr. Rivera)- d/c abx, continue Diflucan - PT consulted- working with patient, current rec TCU following discharge Small bowel obstruction- 2/2 to internal hernia - Pre-op CT A/P (05/13/18): Writhing appearance of mesenteric vessels. Mesenteric edema. No evidence of bowel obstruction. Whirling appearance of mesenteric vessels is nonspecific. Prominent mesenteric lymph nodes. Mesenteric edema. - GI series w/ small bowel (05/24/18): no evidence of postsurgical leak Leukocytosis, improving- likely 2/2 to ischemic bowel 2/2 to small bowel obstruction and surgeries - Procalcitonin: 0.44 - Cultures: Peritoneal Fluid (05/14/18): Pseudomonas Aeruginosa sensitive to Meropenem Wound Culture (05/23/18): Yudith albicans Blood culture (05/15/18, 05/22/18): no growth Urine culture (05/22/18): no growth Anemia, acute, stable (Hgb 8.7)- pt denies blood in stool - Patient received a total of 2 PRBC and 4 FFP - Iron 16, TIBC 205, % sat 4.7, ferritin 75.3 Tachycardia, persistent- possibly etiologies include pain, infection, anxiety - She is being treated for Left G Tube fluid infection. She has been started on Ativan PRN. She has Dilaudid on board to be used PRN. - Increase Metoprolol Tartrate to 50 mg NG BID with holding parameters Diarrhea, acute, resolving- suspect 2/2 PO intake by pt - Stool O&P (05/25/18): negative - C. Diff (05/22/18): negative - C. Diff (05/24/18): negative - Stool leukocytes (05/25/18): negative Thombocytosis, improving (609)- suspect reactive to pain, surgery - Monitor CBC daily Anxiety - Patient was taking Xanax for anxiety noted in prior note - Ativan 1 mg IV BID - Lexapro 5 mg PO daily (started 05/31) - Electric Switch Tester consulted- pt refused - Psychiatry consulted (Dr. Reyez) Hx of Obesity, resolved - s/p gastric bypass surgery in 2013 History of Asthma- patient not in acute exacerbation - Atrovent Q6H T2DM, controlled - From prior note: Admittedly non-compliant, has not taken Januvia for one year - Accuchecks Q6H - Hypoglycemic protocol - ISS regular - HbA1c 5.8 - History of gastric bypass surgery Hypercholesterolemia - From prior note: Pt not taking meds - LDL 38, HDL 14, Chol 104, TG 226 - History of gastric bypass surgery Hx of HTN, controlled- since gastric bypass has not taken meds - Metoprolol 50 mg PO BID Hx of Hypothyroidism - From prior note: Pt admits non-compliance Nicotine use disorder - From prior note: 1ppd x 20 yrs, 1/2 ppd x 3 yrs - Nicoderm 1 patch TD QD Monitor lesion on L heel- improving Hydrocortisone 1% Cream topical TID for Right Upper Inner Arm macular rash- likely 2/2 to blood pressure cuff, improving Vitamin A&D topical q8hrs PRN for dry lips Saliva substitute q6hrs PRN for dry mouth IVF: not indicated VTE ppx: Lovenox 40 mg SC daily, SCDs GI ppx: Protonix 40 mg IV BID, Florastor BID Diet: complete bowel rest, feeds via gastrostomy- HELD 05/31, monitor colostomy output Code status: full code <Franki Denise - Last Filed: 06/04/18 14:10> Objective - Vital Signs/Intake and Output Vital Signs (last 24 hours): Temp Pulse Resp BP Pulse Ox 98.3 F 110 H 20 119/80 96 06/04/18 07:26 06/04/18 12:04 06/04/18 07:26 06/04/18 07:26 06/04/18 07:26 Intake and Output: 06/04/18 06/04/18 06:59 18:59 Intake Total 800 Output Total 1200 Balance -400 - Medications Medications: Current Medications Acetaminophen (Tylenol 650mg/20.3ml Solution Ud) 975 mg GT Q8 [facility] Last Admin: 06/04/18 13:54 Dose: 975 mg Cholestyramine Resin (Questran) 4 gm PO BID [facility] Last Admin: 06/04/18 10:22 Dose: 4 gm Dextrose (Dextrose 50% Inj) 0 ml IV STAT PRN; Protocol PRN Reason: Hypoglycemia Protocol Last Admin: 05/16/18 23:40 Dose: 50 ml Dextrose (Glutose 15) 0 gm PO ONCE PRN; Protocol PRN Reason: Hypoglycemia Protocol Diphenhydramine HCl (Benadryl) 25 mg IVP HS PRN PRN Reason: Insomnia Last Admin: 06/03/18 22:06 Dose: 25 mg Enoxaparin Sodium (Lovenox) 40 mg SC DAILY [facility] Last Admin: 06/04/18 10:22 Dose: 40 mg Ergocalciferol (Drisdol 50,000 Intl Units Cap) 1 cap PO Q7D [facility] Stop: 07/20/18 10:31 Last Admin: 06/01/18 12:13 Dose: 1 cap Escitalopram Oxalate (Lexapro) 5 mg NG DAILY [facility] Last Admin: 06/04/18 10:22 Dose: 5 mg Glucagon (Glucagen Diagnostic Kit) 0 mg IM STAT PRN; Protocol PRN Reason: Hypoglycemia Protocol Hydrocortisone (Cortizone 1% Cream) 0 gm TOP TID PRN PRN Reason: Rash Hydromorphone HCl (Dilaudid) 1.5 mg IVP Q3 PRN PRN Reason: Pain, SEVERE (8-10) Last Admin: 06/04/18 13:37 Dose: 1.5 mg Metronidazole (Flagyl) 500 mg in 100 mls @ 100 mls/hr IVPB Q8H [facility] PRN Reason: Protocol Last Admin: 06/04/18 11:54 Dose: 100 mls/hr Ciprofloxacin (Cipro 400mg/200ml Dsw) 400 mg in 200 mls @ 133 mls/hr IVPB Q12H [facility] PRN Reason: Protocol Last Admin: 06/04/18 13:55 Dose: 133 mls/hr Insulin Human Regular (Novolin R) 0 unit SC Q6 [facility] PRN Reason: Protocol Last Admin: 06/04/18 12:16 Dose: Not Given Ipratropium [place] (Atrovent) 0.5 mg IH RQ6 [facility] Last Admin: 06/04/18 13:22 Dose: Not Given Lactobacillus Acidophilus (Bacid Acidophilus) 1 cap PEG BID [facility] Last Admin: 06/04/18 10:20 Dose: 1 cap Loperamide HCl (Imodium) 1 mg PO Q2H PRN PRN Reason: Diarrhea Last Admin: 06/03/18 18:30 Dose: 1 mg Lorazepam (Ativan) 1 mg IVP BID [facility] Last Admin: 06/04/18 10:20 Dose: 1 mg Metoprolol Tartrate (Lopressor) 5 mg IVP Q6H [facility] Last Admin: 06/04/18 10:21 Dose: 5 mg Nicotine (Nicoderm Cq) 1 patch TD DAILY [facility] Last Admin: 06/04/18 10:21 Dose: 1 patch Nystatin (Mycostatin Cream) 0 ea TOP TID [facility] Last Admin: 06/04/18 13:55 Dose: 1 dose Ondansetron HCl (Zofran Inj) 4 mg IVP Q6H PRN PRN Reason: Nausea/Vomiting Last Admin: 06/04/18 10:20 Dose: 4 mg Pantoprazole Sodium (Protonix Inj) 40 mg IVP DAILY [facility] Last Admin: 06/04/18 10:21 Dose: 40 mg Saliva Substitute (Mouth Kote 236 Ml) 0 ml MM Q6 PRN PRN Reason: Dry mouth Vitamin A (Vitamin A & D Oint Ud Foilpak) 1 ea TOP Q8 PRN PRN Reason: dry lips Last Admin: 05/20/18 11:10 Dose: 1 ea - Labs Labs: 06/03/18 06:54 06/03/18 06:54 PT 16.0 SECONDS (9.7-12.2) H 05/26/18 06:32 INR 1.5 05/26/18 06:32 APTT 33 SECONDS (21-34) 05/25/18 06:16 Attending/Attestation - Attestation I have personally seen and examined this patient.: Yes I have fully participated in the care of the patient.: Yes I have reviewed all pertinent clinical information, including history, physical exam and plan: Yes Notes (Text): 06/04/18 14:09 This is a late entry Care of this patient was gone over in detail with the resident Franki Denise D.O.
[2018-05-31 07:09] LABS: BASO # 0.1 K/uL (0.0-0.2); BASO % 0.9 % (0.0-2.0); EOS # 0.3 K/uL (0.0-0.7); EOS % 2.5 % (0.0-4.0); HEMOGLOBIN 8.7 g/dL (11.0-16.0); LYMPH # 2.3 K/uL (1.0-4.3); LYMPH % 20.1 % (20.0-40.0); MEAN CELL VOLUME 86.9 fL (81.0-99.0); MEAN CORPUSCULAR HEMOGLOBIN 28.3 pg (27.0-31.0); MEAN CORPUSCULAR HGB CONC 32.6 g/dL (33.0-37.0); MEAN PLATELET VOLUME 7.4 fL (7.2-11.7); MONO # 0.9 K/uL (0.0-0.8); MONO % 8.1 % (0.0-10.0); NEUT # 7.7 K/uL (1.8-7.0); NEUT % 68.4 % (50.0-75.0); RBC 3.07 Mil/uL (3.80-5.20); RED CELL DISTRIBUTION WIDTH 16.7 % (11.5-14.5); WHITE BLOOD COUNT 11.3 K/uL (4.8-10.8)
[2018-05-31 07:21] LABS: ALB/GLOB RATIO 0.9 (1.0-2.1); ALBUMIN 3.1 g/dL (3.5-5.0); ALT/SGPT 18 U/L (9-52); AST/SGOT 11 U/L (14-36); BLOOD UREA NITROGEN 20 mg/dL (7-17); CALCIUM 8.6 mg/dl (8.6-10.4); GFR NON-AFRICAN AMERICAN > 60
[2018-05-31] MEDS: Enoxaparin 40 mg Syringe SC SCH (09:45)
[2018-05-31] MEDS: Lactobacillus Acidophilus 500 MU Cap PEG SCH ×2 (09:47→17:49)
[2018-05-31] MEDS: Cholestyramine 4 gm/Pkt UD PO SCH ×2 (09:48→17:51)
[2018-05-31] MEDS ORDERED: Pantoprazole 40 mg Susp UD PO SCH (10:00)
[2018-05-31] MEDS: Nystatin 100,000 Units/gm Cream(15 gm) TOP SCH ×3 (10:17→17:50)
--- NOTE | 2018-05-31 12:33 | PCM.PYCHPN ---
Psychiatric Progress Note - Psychiatric Progress Note Patient seen today, length of contact: 15 min Patient Chief Complaint: "I am better" Problems Identified/Issues Discussed: The pt is seen, chart reviewed, case discussed with staff. Support and psychoeducation given No new symptoms reported, improving slowly and needs more time No SEs from medications, risks discussed, incl. risks of ongoing benzo use Medication Change: No Medical Record Reviewed: Yes Mental Status Examination - Cognitive Function Orientation: Person, Place, Situation, Time Memory: Intact Attention: Poor Concentration: Poor Association: WNL Fund of Knowledge: WNL - Mood Mood: Depressed, Anxious - Affect Affect: Constricted - Speech Speech: Appropriate - Formal Thought Process Formal Thought Process: No Impairment - Suicidal Ideation Suicidal Ideation: No - Homicidal Ideation Homicidal Ideation: No Goal/Treatment Plan - Goal/Treatment Plan Need for Continued Stay: Severe depression anxiety, Other (medical) Progress Toward Problem(s) and Goals/Treatment Plan: Increase ativan to 1 mg IVP BID Lexapro for anxiety and depression Support and psychoed Benadryl for insomnia CBT
[2018-05-31] MEDS: Metoprolol 1 mg/ml Inj IVP SCH ×2 (16:44→21:14)
[2018-05-31] MEDS: Potassium Chl 30 mEq in D5-1/2 1,000 ML IV SCH (18:06)
--- NOTE | 2018-05-31 19:41 | CP.PCM.PN ---
<Anam Dunn - Last Filed: 05/31/18 19:41> Subjective - Date & Time of Evaluation Date of Evaluation: 05/31/18 Time of Evaluation: 19:39 - Subjective Subjective: Surgery: Dr. Harley Pt seen and examined. Resting comfortably in bed. Increased drainage from midline incision. Objective - Vital Signs/Intake and Output Vital Signs (last 24 hours): Temp Pulse Resp BP Pulse Ox 97.6 F 122 H 20 129/70 97 05/31/18 15:46 05/31/18 16:24 05/31/18 15:46 05/31/18 15:46 05/31/18 15:46 - Medications Medications: Current Medications Acetaminophen (Tylenol 650mg/20.3ml Solution Ud) 975 mg GT Q8 [facility] Last Admin: 05/31/18 13:36 Dose: 975 mg Cholestyramine Resin (Questran) 4 gm PO BID [facility] Last Admin: 05/31/18 17:51 Dose: Not Given Dextrose (Dextrose 50% Inj) 0 ml IV STAT PRN; Protocol PRN Reason: Hypoglycemia Protocol Last Admin: 05/16/18 23:40 Dose: 50 ml Dextrose (Glutose 15) 0 gm PO ONCE PRN; Protocol PRN Reason: Hypoglycemia Protocol Diphenhydramine HCl (Benadryl) 25 mg IVP HS PRN PRN Reason: Insomnia Enoxaparin Sodium (Lovenox) 40 mg SC DAILY [facility] Last Admin: 05/31/18 09:45 Dose: 40 mg Escitalopram Oxalate (Lexapro) 5 mg NG DAILY [facility] Last Admin: 05/31/18 09:46 Dose: 5 mg Glucagon (Glucagen Diagnostic Kit) 0 mg IM STAT PRN; Protocol PRN Reason: Hypoglycemia Protocol Hydrocortisone (Cortizone 1% Cream) 0 gm TOP TID PRN PRN Reason: Rash Hydromorphone HCl (Dilaudid) 1.5 mg IVP Q3 PRN PRN Reason: Pain, SEVERE (8-10) Last Admin: 05/31/18 19:07 Dose: 1.5 mg Metronidazole (Flagyl) 500 mg in 100 mls @ 100 mls/hr IVPB Q8H [facility] PRN Reason: Protocol Last Admin: 05/31/18 18:05 Dose: 100 mls/hr Potassium Chloride/Dextrose/Sod Cl (Potassium Chl 30 Meq In D5-1/2ns) 1,000 mls @ 80 mls/hr IV .[id number] [facility] Last Admin: 05/31/18 18:06 Dose: 80 mls/hr Insulin Human Regular (Novolin R) 0 unit SC Q6 [facility] PRN Reason: Protocol Last Admin: 05/31/18 17:50 Dose: Not Given Ipratropium [place] (Atrovent) 0.5 mg IH RQ6 [facility] Last Admin: 05/31/18 13:22 Dose: Not Given Lactobacillus Acidophilus (Bacid Acidophilus) 1 cap PEG BID [facility] Last Admin: 05/31/18 17:49 Dose: Not Given Loperamide HCl (Imodium) 1 mg PO Q2H PRN PRN Reason: Diarrhea Last Admin: 05/31/18 13:43 Dose: 1 mg Lorazepam (Ativan) 1 mg IVP BID [facility] Last Admin: 05/31/18 18:06 Dose: 1 mg Metoprolol Tartrate (Lopressor) 5 mg IVP Q6H [facility] Last Admin: 05/31/18 16:44 Dose: 5 mg Nicotine (Nicoderm Cq) 1 patch TD DAILY [facility] Last Admin: 05/31/18 09:48 Dose: 1 patch Nystatin (Mycostatin Cream) 0 ea TOP TID [facility] Last Admin: 05/31/18 17:50 Dose: Not Given Pantoprazole Sodium (Protonix Susp) 40 mg PO DAILY [facility] Last Admin: 05/31/18 09:45 Dose: 40 mg Saliva Substitute (Mouth Kote 236 Ml) 0 ml MM Q6 PRN PRN Reason: Dry mouth Vitamin A (Vitamin A & D Oint Ud Foilpak) 1 ea TOP Q8 PRN PRN Reason: dry lips Last Admin: 05/20/18 11:10 Dose: 1 ea - Labs Labs: 05/31/18 06:56 05/31/18 06:56 PT 16.0 SECONDS (9.7-12.2) H 05/26/18 06:32 INR 1.5 05/26/18 06:32 APTT 33 SECONDS (21-34) 05/25/18 06:16 - Constitutional Appears: Non-toxic, No Acute Distress - Head Exam Head Exam: ATRAUMATIC, NORMOCEPHALIC - Eye Exam Eye Exam: EOMI - ENT Exam ENT Exam: Mucous Membranes Moist - Neck Exam Neck Exam: Full ROM, Normal Inspection - Respiratory Exam Respiratory Exam: NORMAL BREATHING PATTERN. absent: Accessory Muscle Use, Respiratory Distress - GI/Abdominal Exam GI & Abdominal Exam: Soft. absent: Distended, Firm, Guarding, Rigid, Tenderness Additional comments: midline incision draining thick reddish/brown fluid, no odor, no surrounding erythema, no fluctuance - Neurological Exam Neurological Exam: Alert, Awake, Oriented x3 - Psychiatric Exam Psychiatric exam: Normal Affect, Normal Mood - Skin Skin Exam: Dry, Warm Assessment and Plan - Assessment and Plan (Free Text) Assessment: 38yo F with PMHx of yenni-en-Y gastric bypass in 2014, found to have bowel ischemia secondary to internal hernia. POD#17 s/p Exploratory laparotomy, Reduction of internal hernia, DANNI, Drainage of abdominal collections, temporary abdominal closure (fascia left open), EGD. POD#14 s/p Re-exploration, Small bowel resection of ileum, small bowel resection of Yenni limb including previous gastrojejunostomy, reversal of bypass , primary anastomosis of ileum-ileum, ileum-ileum, and ileum-jejunum, Gastrostomy tube in bypassed stomach, EGD -concerns for EC fistula, will hold TF -Ostomy device over midline incision -Vitamin studies ordered, will follow up results -Will Tentatively plan for OR when nutritional status fully optimized -d/w attending Mona PGY4 <Gómez Harely B - Last Filed: 06/01/18 14:26> Objective - Vital Signs/Intake and Output Vital Signs (last 24 hours): Temp Pulse Resp BP Pulse Ox 97.9 F 122 H 20 121/86 98 06/01/18 07:00 06/01/18 08:00 06/01/18 07:00 06/01/18 07:00 06/01/18 07:00 Intake and Output: 06/01/18 06/01/18 06:59 18:59 Intake Total 720 Output Total 900 Balance -180 - Medications Medications: Current Medications Acetaminophen (Tylenol 650mg/20.3ml Solution Ud) 975 mg GT Q8 [facility] Last Admin: 06/01/18 13:50 Dose: 975 mg Cholestyramine Resin (Questran) 4 gm PO BID [facility] Last Admin: 06/01/18 10:02 Dose: 4 gm Dextrose (Dextrose 50% Inj) 0 ml IV STAT PRN; Protocol PRN Reason: Hypoglycemia Protocol Last Admin: 05/16/18 23:40 Dose: 50 ml Dextrose (Glutose 15) 0 gm PO ONCE PRN; Protocol PRN Reason: Hypoglycemia Protocol Diphenhydramine HCl (Benadryl) 25 mg IVP HS PRN PRN Reason: Insomnia Last Admin: 05/31/18 23:46 Dose: 25 mg Enoxaparin Sodium (Lovenox) 40 mg SC DAILY [facility] Last Admin: 06/01/18 10:02 Dose: 40 mg Ergocalciferol (Drisdol 50,000 Intl Units Cap) 1 cap PO Q7D [facility] Stop: 07/20/18 10:31 Last Admin: 06/01/18 12:13 Dose: 1 cap Escitalopram Oxalate (Lexapro) 5 mg NG DAILY [facility] Last Admin: 06/01/18 10:02 Dose: 5 mg Glucagon (Glucagen Diagnostic Kit) 0 mg IM STAT PRN; Protocol PRN Reason: Hypoglycemia Protocol Hydrocortisone (Cortizone 1% Cream) 0 gm TOP TID PRN PRN Reason: Rash Hydromorphone HCl (Dilaudid) 1.5 mg IVP Q3 PRN PRN Reason: Pain, SEVERE (8-10) Last Admin: 06/01/18 13:49 Dose: 1.5 mg Metronidazole (Flagyl) 500 mg in 100 mls @ 100 mls/hr IVPB Q8H [facility] PRN Reason: Protocol Last Admin: 06/01/18 12:12 Dose: 100 mls/hr Potassium Chloride/Dextrose/Sod Cl (Potassium Chl 30 Meq In D5-1/2ns) 1,000 mls @ 80 mls/hr IV .[id number] [facility] Last Admin: 06/01/18 05:26 Dose: Not Given Insulin Human Regular (Novolin R) 0 unit SC Q6 [facility] PRN Reason: Protocol Last Admin: 06/01/18 12:13 Dose: Not Given Ipratropium [place] (Atrovent) 0.5 mg IH RQ6 [facility] Last Admin: 06/01/18 14:14 Dose: Not Given Lactobacillus Acidophilus (Bacid Acidophilus) 1 cap PEG BID [facility] Last Admin: 06/01/18 10:02 Dose: 1 cap Loperamide HCl (Imodium) 1 mg PO Q2H PRN PRN Reason: Diarrhea Last Admin: 06/01/18 10:01 Dose: 1 mg Lorazepam (Ativan) 1 mg IVP BID [facility] Last Admin: 06/01/18 10:01 Dose: 1 mg Metoprolol Tartrate (Lopressor) 5 mg IVP Q6H [facility] Last Admin: 06/01/18 10:01 Dose: 5 mg Nicotine (Nicoderm Cq) 1 patch TD DAILY [facility] Last Admin: 06/01/18 10:02 Dose: 1 patch Nystatin (Mycostatin Cream) 0 ea TOP TID [facility] Last Admin: 06/01/18 13:50 Dose: 1 dose Pantoprazole Sodium (Protonix Inj) 40 mg IVP DAILY [facility] Last Admin: 06/01/18 10:02 Dose: 40 mg Saliva Substitute (Mouth Kote 236 Ml) 0 ml MM Q6 PRN PRN Reason: Dry mouth Vitamin A (Vitamin A & D Oint Ud Foilpak) 1 ea TOP Q8 PRN PRN Reason: dry lips Last Admin: 05/20/18 11:10 Dose: 1 ea - Labs Labs: 06/01/18 07:14 06/01/18 07:14 PT 16.0 SECONDS (9.7-12.2) H 05/26/18 06:32 INR 1.5 05/26/18 06:32 APTT 33 SECONDS (21-34) 05/25/18 06:16 Attending/Attestation - Attestation I have personally seen and examined this patient.: Yes I have fully participated in the care of the patient.: Yes I have reviewed all pertinent clinical information, including history, physical exam and plan: Yes Notes (Text): Pt was seen and examined at bedside Agree with above note and assessment Pt is stable clinically Prealbumin and Vit B12 and folate level we will f.u Plan d.w pt and primary team in detail Risk and benefit explained in detail.
[2018-05-31] MEDS: DiphenhydrAMINE 50 mg/ml Inj IVP PRN (23:46)
[2018-06-01] MEDS: Ipratropium 0.02% Inhal Soln (0.5 mg/2.5 ml) UD IH SCH ×4 (01:05→19:36)
[2018-06-01] MEDS: Metoprolol 1 mg/ml Inj IVP SCH ×4 (03:59→21:32)
[2018-06-01] MEDS: metroNIDAZOLE IV 500 mg/100 ml 500 MG/100 ML BAG IVPB SCH ×3 (04:00→19:54)
[2018-06-01] MEDS: Potassium Chl 30 mEq in D5-1/2 1,000 ML IV SCH ×3 (05:26→23:49)
[2018-06-01] MEDS: Acetaminophen 650mg/20.3ml solution UD GT SCH ×3 (05:27→21:31)
[2018-06-01] MEDS: (Novolin R) Insulin Human Regular 100 units/ml vial SC SCH ×4 (06:37→23:50)
[2018-06-01 07:27] LABS: BASO # 0.1 K/uL (0.0-0.2); BASO % 0.8 % (0.0-2.0); EOS # 0.3 K/uL (0.0-0.7); EOS % 3.6 % (0.0-4.0); HEMOGLOBIN 8.1 g/dL (11.0-16.0); LYMPH % 22.6 % (20.0-40.0); MEAN CELL VOLUME 86.5 fL (81.0-99.0); MEAN CORPUSCULAR HGB CONC 33.6 g/dL (33.0-37.0); MEAN PLATELET VOLUME 7.1 fL (7.2-11.7); MONO # 0.7 K/uL (0.0-0.8); NEUT # 5.8 K/uL (1.8-7.0); RBC 2.8 Mil/uL (3.80-5.20); RED CELL DISTRIBUTION WIDTH 16.2 % (11.5-14.5); WHITE BLOOD COUNT 8.9 K/uL (4.8-10.8)
[2018-06-01 07:51] LABS: ALB/GLOB RATIO 0.8 (1.0-2.1); ALBUMIN 2.9 g/dL (3.5-5.0); ALT/SGPT 18 U/L (9-52); AST/SGOT 20 U/L (14-36); BLOOD UREA NITROGEN 16 mg/dL (7-17); CALCIUM 8.3 mg/dl (8.6-10.4); GFR NON-AFRICAN AMERICAN > 60
[2018-06-01 08:48] LABS: FOLATE 12.6 ng/mL
[2018-06-01] MEDS: Loperamide Hydrochloride 1 mg/5 ml Cup PO PRN (10:01)
[2018-06-01] MEDS: Enoxaparin 40 mg Syringe SC SCH (10:02)
[2018-06-01] MEDS: Cholestyramine 4 gm/Pkt UD PO SCH ×2 (10:02→17:06)
[2018-06-01] MEDS: Lactobacillus Acidophilus 500 MU Cap PEG SCH ×2 (10:02→17:06)
[2018-06-01] MEDS: Nystatin 100,000 Units/gm Cream(15 gm) TOP SCH ×3 (10:02→17:06)
--- NOTE | 2018-06-01 10:15 | CP.PCM.PN ---
<Yanelis Hudson - Last Filed: 06/01/18 15:44> Subjective - Date & Time of Evaluation Date of Evaluation: 06/01/18 Time of Evaluation: 07:20 - Subjective Subjective: PGY-1 Yanelis Hudson D.O. Medicine progress note for Dr. Franki Denise's service: Patient is seen and examined this morning. She is not currently in significant pain. She is concerned about her incision drainage. Her diarrhea is improving- her stools are loose but she is going less frequently than before. She denies drinking or eating ice chips. She is continuing to work with PT to walk. Objective - Vital Signs/Intake and Output Vital Signs (last 24 hours): Temp Pulse Resp BP Pulse Ox 97.9 F 122 H 20 121/86 98 06/01/18 07:00 06/01/18 08:00 06/01/18 07:00 06/01/18 07:00 06/01/18 07:00 Intake and Output: 06/01/18 06/01/18 06:59 18:59 Intake Total 720 Output Total 900 Balance -180 - Medications Medications: Current Medications Acetaminophen (Tylenol 650mg/20.3ml Solution Ud) 975 mg GT Q8 [facility] Last Admin: 06/01/18 05:27 Dose: Not Given Cholestyramine Resin (Questran) 4 gm PO BID [facility] Last Admin: 06/01/18 10:02 Dose: 4 gm Dextrose (Dextrose 50% Inj) 0 ml IV STAT PRN; Protocol PRN Reason: Hypoglycemia Protocol Last Admin: 05/16/18 23:40 Dose: 50 ml Dextrose (Glutose 15) 0 gm PO ONCE PRN; Protocol PRN Reason: Hypoglycemia Protocol Diphenhydramine HCl (Benadryl) 25 mg IVP HS PRN PRN Reason: Insomnia Last Admin: 05/31/18 23:46 Dose: 25 mg Enoxaparin Sodium (Lovenox) 40 mg SC DAILY [facility] Last Admin: 06/01/18 10:02 Dose: 40 mg Escitalopram Oxalate (Lexapro) 5 mg NG DAILY [facility] Last Admin: 06/01/18 10:02 Dose: 5 mg Glucagon (Glucagen Diagnostic Kit) 0 mg IM STAT PRN; Protocol PRN Reason: Hypoglycemia Protocol Hydrocortisone (Cortizone 1% Cream) 0 gm TOP TID PRN PRN Reason: Rash Hydromorphone HCl (Dilaudid) 1.5 mg IVP Q3 PRN PRN Reason: Pain, SEVERE (8-10) Last Admin: 06/01/18 07:42 Dose: 1.5 mg Metronidazole (Flagyl) 500 mg in 100 mls @ 100 mls/hr IVPB Q8H [facility] PRN Reason: Protocol Last Admin: 06/01/18 04:00 Dose: 100 mls/hr Potassium Chloride/Dextrose/Sod Cl (Potassium Chl 30 Meq In D5-1/2ns) 1,000 mls @ 80 mls/hr IV .[id number] [facility] Last Admin: 06/01/18 05:26 Dose: Not Given Insulin Human Regular (Novolin R) 0 unit SC Q6 [facility] PRN Reason: Protocol Last Admin: 06/01/18 06:37 Dose: Not Given Ipratropium [place] (Atrovent) 0.5 mg IH RQ6 [facility] Last Admin: 06/01/18 08:01 Dose: 0.5 mg Lactobacillus Acidophilus (Bacid Acidophilus) 1 cap PEG BID [facility] Last Admin: 06/01/18 10:02 Dose: 1 cap Loperamide HCl (Imodium) 1 mg PO Q2H PRN PRN Reason: Diarrhea Last Admin: 06/01/18 10:01 Dose: 1 mg Lorazepam (Ativan) 1 mg IVP BID [facility] Last Admin: 06/01/18 10:01 Dose: 1 mg Metoprolol Tartrate (Lopressor) 5 mg IVP Q6H [facility] Last Admin: 06/01/18 10:01 Dose: 5 mg Nicotine (Nicoderm Cq) 1 patch TD DAILY [facility] Last Admin: 06/01/18 10:02 Dose: 1 patch Nystatin (Mycostatin Cream) 0 ea TOP TID [facility] Last Admin: 06/01/18 10:02 Dose: 1 dose Pantoprazole Sodium (Protonix Inj) 40 mg IVP DAILY [facility] Last Admin: 06/01/18 10:02 Dose: 40 mg Saliva Substitute (Mouth Kote 236 Ml) 0 ml MM Q6 PRN PRN Reason: Dry mouth Vitamin A (Vitamin A & D Oint Ud Foilpak) 1 ea TOP Q8 PRN PRN Reason: dry lips Last Admin: 05/20/18 11:10 Dose: 1 ea - Labs Labs: 06/01/18 07:14 06/01/18 07:14 PT 16.0 SECONDS (9.7-12.2) H 05/26/18 06:32 INR 1.5 05/26/18 06:32 APTT 33 SECONDS (21-34) 05/25/18 06:16 - Constitutional Appears: Non-toxic, No Acute Distress - Head Exam Head Exam: ATRAUMATIC, NORMAL INSPECTION, NORMOCEPHALIC - Eye Exam Eye Exam: EOMI, Normal appearance - ENT Exam ENT Exam: Mucous Membranes Moist, Normal Exam - Neck Exam Neck Exam: Normal Inspection - Respiratory Exam Respiratory Exam: Clear to Ausculation Bilateral, NORMAL BREATHING PATTERN - Cardiovascular Exam Cardiovascular Exam: REGULAR RHYTHM, +S1, +S2 - GI/Abdominal Exam GI & Abdominal Exam: Soft, Tenderness, Normal Bowel Sounds Additional comments: Srivastava cath in place of G-tube, bandages over cath and surgical incision midline , colostomy bag placed over portion of incision, clear-green drainage from incision - Rectal Exam Rectal Exam: Deferred - Extremities Exam Extremities Exam: Normal Capillary Refill, Normal Inspection - Back Exam Back Exam: NORMAL INSPECTION - Neurological Exam Neurological Exam: Alert, Awake, Oriented x3 - Psychiatric Exam Psychiatric exam: Normal Affect, Normal Mood - Skin Skin Exam: Dry, Intact, Normal Color, Warm Assessment and Plan - Assessment and Plan (Free Text) Assessment: Patient is a 37 yo female with a history of gastric bypass in 2013 who presented with severe abdominal pain. She was found to have bowel ischemia 2/2 internal hernia. Patient underwent ex lap on 05/14 and again on 05/16. She will need a repeat surgery 4-6 weeks from the first. She currently has an NGT and is utilizing a G tube for nutrition/meds. Plan: As per surgery- patient will resume feeds via Srivastava in G-tube site today. Continue NPO. Awaiting all vitamin studies to be complete. Continue Imodium as needed- suspect 2/2 to shortened bowel as all stool studies were negative. Strict NPO was reinforced with both patient and nurses. PICC line placed in R arm today. TLC removed. Measure vitamin levels and replace as needed - Vit D <12.8- vit D 50,000 units q1wk x8 wks - Prealbumin 18.1 - B12 707 - Folate 12.6 - F/u A, B1, B6, E Ischemic bowel disease- 2/2 to internal hernias producing bowel obstruction - Pre-op CT A/P (05/13/18): Writhing appearance of mesenteric vessels. Mesenteric edema. No evidence of bowel obstruction. Whirling appearance of mesenteric vessels is nonspecific. Prominent mesenteric lymph nodes. Mesenteric edema. - Lactate: 3.6 (pre-op)-->2.4 (post-op)-->0.9 - Initially stool occult blood positive- patient denies bloody BMs presently , Hgb stable - Patient required emergent surgical intervention on 05/14/18 and transferred to ICU. Patient had a second surgery on 05/16/18. - Per operative note (05/14/18): Diagnostic laparoscopy, Exploratory laparotomy, Reduction of internal hernia, Lysis of adhesions, Drainage of abdominal collections, temporary abdominal closure, EGD. Ischemia of yenni limb, internal hernia. Mccaskill drain stitched to distal common limb - Per operative note (05/16/18): Re-exploration, Small bowel resection of ileum, small bowel resection of Yenni limb with gastrojejunostomy, reversal of bypass, primary anastomosis of ileum-ileum, ileum-ileum, and ileum- jejunum, Gastrostomy tube in bypassed stomach, EGD - Will need f/u surgery in 4-6 weeks from original surgery date (05/14) to restore GI - GI series w/ small bowel (05/24/18): no evidence of postsurgical leak - Current drains include: NGT, gastrostomy tube- temporary Srivastava in place after G-tube "fell out" on 05/30 - Cultures: Peritoneal Fluid (05/14/18): Pseudomonas Aeruginosa sensitive to Meropenem Wound Culture (05/23/18): Yudith albicans Blood culture (05/15/18, 05/22/18): no growth Urine culture (05/22/18): no growth - F/u wound Cx from incision site 05/31 - Discontinued Meropenem 1 gm IVPB Q8H (active since 05/15/18-05/27/18) - Flagyl 500mg IVPB Q8H (active since 05/15/18) - Fluconazole cream TID for G-tube site (Yudith) - Tylenol 975 mg liq q8hrs - Dilaudid 1.5 mg IV q3hrs PRN - Surgery consulted (Dr. Harley) - GI consulted (Dr. Alvaardo) - ID consulted (Dr. Rivera)- d/c abx, continue Diflucan - PT consulted- working with patient, current rec TCU following discharge Tachycardia, persistent (110s-130s)- possibly etiologies include pain, infection , anxiety - She is being treated for Left G Tube fluid infection. She has been started on Ativan PRN. She has Dilaudid on board to be used PRN. - Increase Metoprolol tartrate to 5 mg IV q6hrs with holding parameters (SBP <100, HR <60) Leukocytosis, improved (8.9)- likely 2/2 to ischemic bowel 2/2 to small bowel obstruction and surgeries - Procalcitonin: 0.44 - Cultures: Peritoneal Fluid (05/14/18): Pseudomonas Aeruginosa sensitive to Meropenem Wound Culture (05/23/18): Yudith albicans Blood culture (05/15/18, 05/22/18): no growth Urine culture (05/22/18): no growth - F/u wound Cx from incision site 05/31 Diarrhea, acute, improving- suspect 2/2 PO intake by pt - C. Diff (05/22, 05/24, 05/28): negative - Stool O&P (05/25/18): negative - Stool leukocytes (05/25/18): negative Anxiety - Patient was taking Xanax for anxiety noted in prior note - Ativan 1 mg IV BID - Lexapro 5 mg PO daily (started 05/31) - Physician Office Clin Asst consulted- pt initially refused but then accepted - Psychiatry consulted (Dr. Reyez)- managing Ativan Anemia, acute, stable (Hgb 8.1)- pt denies blood in stool - Patient received a total of 2 PRBC and 4 FFP - Iron 16, TIBC 205, % sat 4.7, ferritin 75.3 Thombocytosis, improving (504)- suspect reactive to pain, surgery - Monitor CBC daily T2DM, controlled - From prior note: Admittedly non-compliant, has not taken Januvia for one year - Accuchecks q6hrs - Hypoglycemic protocol - ISS regular - HbA1c 5.8 - History of gastric bypass surgery Hypercholesterolemia- untreated - LDL 38, HDL 14, Chol 104, TG 226 - History of gastric bypass surgery Hx of HTN, controlled- since gastric bypass has not taken meds - Metoprolol 5 mg IV q6hrs Hx of Obesity, resolved - s/p gastric bypass surgery in 2013 Hx of Asthma- patient not in acute exacerbation - Atrovent q6hrs Nicotine use disorder - From prior note: 1ppd x 20 yrs, 1/2 ppd x 3 yrs - Nicoderm 1 patch TD QD Monitor lesion on L heel- improving Hydrocortisone 1% Cream topical TID for Right Upper Inner Arm macular rash- likely 2/2 to blood pressure cuff, improved Vitamin A&D topical q8hrs PRN for dry lips Saliva substitute q6hrs PRN for dry mouth IVF: KCl/D5/1/2NS @ 80 mL/hr- d/c when feeds restart VTE ppx: Lovenox 40 mg SC daily, SCDs GI ppx: Protonix 40 mg IV BID, Florastor BID Diet: feeds via gastrostomy (temporary Srivastava in place) Code status: full code <Franki Denise - Last Filed: 06/04/18 14:10> Objective - Vital Signs/Intake and Output Vital Signs (last 24 hours): Temp Pulse Resp BP Pulse Ox 98.3 F 110 H 20 119/80 96 06/04/18 07:26 06/04/18 12:04 06/04/18 07:26 06/04/18 07:26 06/04/18 07:26 Intake and Output: 06/04/18 06/04/18 06:59 18:59 Intake Total 800 Output Total 1200 Balance -400 - Medications Medications: Current Medications Acetaminophen (Tylenol 650mg/20.3ml Solution Ud) 975 mg GT Q8 [facility] Last Admin: 06/04/18 13:54 Dose: 975 mg Cholestyramine Resin (Questran) 4 gm PO BID [facility] Last Admin: 06/04/18 10:22 Dose: 4 gm Dextrose (Dextrose 50% Inj) 0 ml IV STAT PRN; Protocol PRN Reason: Hypoglycemia Protocol Last Admin: 05/16/18 23:40 Dose: 50 ml Dextrose (Glutose 15) 0 gm PO ONCE PRN; Protocol PRN Reason: Hypoglycemia Protocol Diphenhydramine HCl (Benadryl) 25 mg IVP HS PRN PRN Reason: Insomnia Last Admin: 06/03/18 22:06 Dose: 25 mg Enoxaparin Sodium (Lovenox) 40 mg SC DAILY [facility] Last Admin: 06/04/18 10:22 Dose: 40 mg Ergocalciferol (Drisdol 50,000 Intl Units Cap) 1 cap PO Q7D [facility] Stop: 07/20/18 10:31 Last Admin: 06/01/18 12:13 Dose: 1 cap Escitalopram Oxalate (Lexapro) 5 mg NG DAILY [facility] Last Admin: 06/04/18 10:22 Dose: 5 mg Glucagon (Glucagen Diagnostic Kit) 0 mg IM STAT PRN; Protocol PRN Reason: Hypoglycemia Protocol Hydrocortisone (Cortizone 1% Cream) 0 gm TOP TID PRN PRN Reason: Rash Hydromorphone HCl (Dilaudid) 1.5 mg IVP Q3 PRN PRN Reason: Pain, SEVERE (8-10) Last Admin: 06/04/18 13:37 Dose: 1.5 mg Metronidazole (Flagyl) 500 mg in 100 mls @ 100 mls/hr IVPB Q8H [facility] PRN Reason: Protocol Last Admin: 06/04/18 11:54 Dose: 100 mls/hr Ciprofloxacin (Cipro 400mg/200ml Dsw) 400 mg in 200 mls @ 133 mls/hr IVPB Q12H [facility] PRN Reason: Protocol Last Admin: 06/04/18 13:55 Dose: 133 mls/hr Insulin Human Regular (Novolin R) 0 unit SC Q6 [facility] PRN Reason: Protocol Last Admin: 06/04/18 12:16 Dose: Not Given Ipratropium [place] (Atrovent) 0.5 mg IH RQ6 [facility] Last Admin: 06/04/18 13:22 Dose: Not Given Lactobacillus Acidophilus (Bacid Acidophilus) 1 cap PEG BID [facility] Last Admin: 06/04/18 10:20 Dose: 1 cap Loperamide HCl (Imodium) 1 mg PO Q2H PRN PRN Reason: Diarrhea Last Admin: 06/03/18 18:30 Dose: 1 mg Lorazepam (Ativan) 1 mg IVP BID [facility] Last Admin: 06/04/18 10:20 Dose: 1 mg Metoprolol Tartrate (Lopressor) 5 mg IVP Q6H [facility] Last Admin: 06/04/18 10:21 Dose: 5 mg Nicotine (Nicoderm Cq) 1 patch TD DAILY [facility] Last Admin: 06/04/18 10:21 Dose: 1 patch Nystatin (Mycostatin Cream) 0 ea TOP TID [facility] Last Admin: 06/04/18 13:55 Dose: 1 dose Ondansetron HCl (Zofran Inj) 4 mg IVP Q6H PRN PRN Reason: Nausea/Vomiting Last Admin: 06/04/18 10:20 Dose: 4 mg Pantoprazole Sodium (Protonix Inj) 40 mg IVP DAILY [facility] Last Admin: 06/04/18 10:21 Dose: 40 mg Saliva Substitute (Mouth Kote 236 Ml) 0 ml MM Q6 PRN PRN Reason: Dry mouth Vitamin A (Vitamin A & D Oint Ud Foilpak) 1 ea TOP Q8 PRN PRN Reason: dry lips Last Admin: 05/20/18 11:10 Dose: 1 ea - Labs Labs: 06/03/18 06:54 06/03/18 06:54 PT 16.0 SECONDS (9.7-12.2) H 05/26/18 06:32 INR 1.5 05/26/18 06:32 APTT 33 SECONDS (21-34) 05/25/18 06:16 Attending/Attestation - Attestation I have personally seen and examined this patient.: Yes I have fully participated in the care of the patient.: Yes I have reviewed all pertinent clinical information, including history, physical exam and plan: Yes Notes (Text): 06/04/18 14:10 This is a late entry Care of this patient was gone over in detail with the resident Franki Denise D.O.
[2018-06-01] MEDS: Ergocalciferol 50,000 Intl Units Cap PO SCH ×2 (11:26→12:13)
--- NOTE | 2018-06-01 12:54 | RAD ---
Date of service: 06/01/2018 HISTORY: verify right PICC COMPARISON: 05/26/2018 FINDINGS: LUNGS: No active pulmonary disease. PLEURA: No significant pleural effusion identified, no pneumothorax apparent. CARDIOVASCULAR: New right PICC catheter terminating in the region of the cavoatrial junction. Right IJ central venous catheter remains unchanged. Nasogastric tube noted terminating above the level of the diaphragm. This should be advanced or replaced. OSSEOUS STRUCTURES: No significant abnormalities. VISUALIZED UPPER ABDOMEN: Normal. OTHER FINDINGS: None. IMPRESSION: New right PICC catheter terminating in the level of the cavoatrial junction. Nasogastric tube terminates above the diaphragm and should be repositioned or replaced. No infiltrate or pneumothorax prior.
--- NOTE | 2018-06-01 17:50 | CP.PCM.PN ---
<Maggie Dailey - Last Filed: 06/01/18 17:53> Subjective - Date & Time of Evaluation Date of Evaluation: 06/01/18 Time of Evaluation: 10:00 - Subjective Subjective: GENERAL SURGERY PROGRESS NOTE FOR DR. TIAN Patient seen and examined at bedside. Denies nausea or vomiting. States that she still has some diarrhea but it is improved from before. Objective - Vital Signs/Intake and Output Vital Signs (last 24 hours): Temp Pulse Resp BP Pulse Ox 98.8 F 123 H 20 105/73 95 06/01/18 15:34 06/01/18 16:00 06/01/18 15:34 06/01/18 15:34 06/01/18 15:34 Intake and Output: 06/01/18 06/01/18 06:59 18:59 Intake Total 720 Output Total 900 Balance -180 - Medications Medications: Current Medications Acetaminophen (Tylenol 650mg/20.3ml Solution Ud) 975 mg GT Q8 [facility] Last Admin: 06/01/18 13:50 Dose: 975 mg Cholestyramine Resin (Questran) 4 gm PO BID [facility] Last Admin: 06/01/18 17:06 Dose: 4 gm Dextrose (Dextrose 50% Inj) 0 ml IV STAT PRN; Protocol PRN Reason: Hypoglycemia Protocol Last Admin: 05/16/18 23:40 Dose: 50 ml Dextrose (Glutose 15) 0 gm PO ONCE PRN; Protocol PRN Reason: Hypoglycemia Protocol Diphenhydramine HCl (Benadryl) 25 mg IVP HS PRN PRN Reason: Insomnia Last Admin: 05/31/18 23:46 Dose: 25 mg Enoxaparin Sodium (Lovenox) 40 mg SC DAILY [facility] Last Admin: 06/01/18 10:02 Dose: 40 mg Ergocalciferol (Drisdol 50,000 Intl Units Cap) 1 cap PO Q7D [facility] Stop: 07/20/18 10:31 Last Admin: 06/01/18 12:13 Dose: 1 cap Escitalopram Oxalate (Lexapro) 5 mg NG DAILY [facility] Last Admin: 06/01/18 10:02 Dose: 5 mg Glucagon (Glucagen Diagnostic Kit) 0 mg IM STAT PRN; Protocol PRN Reason: Hypoglycemia Protocol Hydrocortisone (Cortizone 1% Cream) 0 gm TOP TID PRN PRN Reason: Rash Hydromorphone HCl (Dilaudid) 1.5 mg IVP Q3 PRN PRN Reason: Pain, SEVERE (8-10) Last Admin: 06/01/18 17:03 Dose: 1.5 mg Metronidazole (Flagyl) 500 mg in 100 mls @ 100 mls/hr IVPB Q8H [facility] PRN Reason: Protocol Last Admin: 06/01/18 12:12 Dose: 100 mls/hr Potassium Chloride/Dextrose/Sod Cl (Potassium Chl 30 Meq In D5-1/2ns) 1,000 mls @ 80 mls/hr IV .[id number] [facility] Last Admin: 06/01/18 05:26 Dose: Not Given Insulin Human Regular (Novolin R) 0 unit SC Q6 [facility] PRN Reason: Protocol Last Admin: 06/01/18 12:13 Dose: Not Given Ipratropium [place] (Atrovent) 0.5 mg IH RQ6 [facility] Last Admin: 06/01/18 14:14 Dose: Not Given Lactobacillus Acidophilus (Bacid Acidophilus) 1 cap PEG BID [facility] Last Admin: 06/01/18 17:06 Dose: 1 cap Loperamide HCl (Imodium) 1 mg PO Q2H PRN PRN Reason: Diarrhea Last Admin: 06/01/18 10:01 Dose: 1 mg Lorazepam (Ativan) 1 mg IVP BID [facility] Last Admin: 06/01/18 10:01 Dose: 1 mg Metoprolol Tartrate (Lopressor) 5 mg IVP Q6H [facility] Last Admin: 06/01/18 17:06 Dose: Not Given Nicotine (Nicoderm Cq) 1 patch TD DAILY [facility] Last Admin: 06/01/18 10:02 Dose: 1 patch Nystatin (Mycostatin Cream) 0 ea TOP TID [facility] Last Admin: 06/01/18 17:06 Dose: 1 dose Pantoprazole Sodium (Protonix Inj) 40 mg IVP DAILY [facility] Last Admin: 06/01/18 10:02 Dose: 40 mg Saliva Substitute (Mouth Kote 236 Ml) 0 ml MM Q6 PRN PRN Reason: Dry mouth Vitamin A (Vitamin A & D Oint Ud Foilpak) 1 ea TOP Q8 PRN PRN Reason: dry lips Last Admin: 05/20/18 11:10 Dose: 1 ea - Labs Labs: 06/01/18 07:14 06/01/18 07:14 PT 16.0 SECONDS (9.7-12.2) H 05/26/18 06:32 INR 1.5 05/26/18 06:32 APTT 33 SECONDS (21-34) 05/25/18 06:16 - Constitutional Appears: Non-toxic, No Acute Distress - Head Exam Head Exam: ATRAUMATIC, NORMAL INSPECTION - Eye Exam Eye Exam: EOMI, Normal appearance - Respiratory Exam Respiratory Exam: NORMAL BREATHING PATTERN. absent: Respiratory Distress - Cardiovascular Exam Cardiovascular Exam: Tachycardia - GI/Abdominal Exam GI & Abdominal Exam: Soft. absent: Distended, Firm, Guarding, Rigid, Tenderness Additional comments: Midline incision with iodaform loosely packed in between sutures G tube in place with tube feeds - Neurological Exam Neurological Exam: Alert, Awake, Oriented x3 - Psychiatric Exam Psychiatric exam: Normal Affect, Normal Mood - Skin Skin Exam: Normal Color, Warm Assessment and Plan - Assessment and Plan (Free Text) Assessment: 38yo F with PMHx of yenni-en-Y gastric bypass in 2013, found to have bowel ischemia secondary to internal hernia. POD#18 s/p Exploratory laparotomy, Reduction of internal hernia, DANNI, Drainage of abdominal collections, temporary abdominal closure (fascia left open), EGD. POD#15 s/p Re-exploration, Small bowel resection of ileum, small bowel resection of Yenni limb including previous gastrojejunostomy, reversal of bypass , primary anastomosis of ileum-ileum, ileum-ileum, and ileum-jejunum, Gastrostomy tube in bypassed stomach, EGD - Continue tube feeds - PICC placement today, remove TLC - Packing removed and replaced and dressing changed on midline incision - Will return to OR to restore GI continuity once pt nutritionally optimized - Continue abx per ID - C/w DVT ppx - Discussed plan with Dr. Cricket Dailey PGY-4 <Gómez Harley - Last Filed: 06/06/18 15:19> Objective - Vital Signs/Intake and Output Vital Signs (last 24 hours): Temp Pulse Resp BP Pulse Ox 98.4 F 99 H 18 104/74 94 L 06/06/18 07:35 06/06/18 07:35 06/06/18 07:35 06/06/18 07:35 06/06/18 07:35 Intake and Output: 06/06/18 06/06/18 06:59 18:59 Intake Total 700 Output Total 360 Balance 340 - Medications Medications: Current Medications Acetaminophen (Tylenol 650mg/20.3ml Solution Ud) 975 mg GT Q8 [facility] Last Admin: 06/06/18 13:46 Dose: 975 mg Cholestyramine Resin (Questran) 4 gm PO BID [facility] Last Admin: 06/06/18 10:44 Dose: 4 gm Dextrose (Dextrose 50% Inj) 0 ml IV STAT PRN; Protocol PRN Reason: Hypoglycemia Protocol Last Admin: 05/16/18 23:40 Dose: 50 ml Dextrose (Glutose 15) 0 gm PO ONCE PRN; Protocol PRN Reason: Hypoglycemia Protocol Diphenhydramine HCl (Benadryl) 25 mg IVP HS PRN PRN Reason: Insomnia Last Admin: 06/05/18 22:25 Dose: 25 mg Enoxaparin Sodium (Lovenox) 40 mg SC DAILY [facility] Last Admin: 06/06/18 10:44 Dose: 40 mg Ergocalciferol (Drisdol 50,000 Intl Units Cap) 1 cap PO Q7D [facility] Stop: 07/20/18 10:31 Last Admin: 06/01/18 12:13 Dose: 1 cap Escitalopram Oxalate (Lexapro) 10 mg GT DAILY [facility] Last Admin: 06/06/18 10:44 Dose: 10 mg Glucagon (Glucagen Diagnostic Kit) 0 mg IM STAT PRN; Protocol PRN Reason: Hypoglycemia Protocol Hydrocortisone (Cortizone 1% Cream) 0 gm TOP TID PRN PRN Reason: Rash Hydromorphone HCl (Dilaudid) 1.5 mg IVP Q3 PRN PRN Reason: Pain, SEVERE (8-10) Last Admin: 06/06/18 13:43 Dose: 1.5 mg Metronidazole (Flagyl) 500 mg in 100 mls @ 100 mls/hr IVPB Q8H [facility] PRN Reason: Protocol Last Admin: 06/06/18 12:45 Dose: 100 mls/hr Ciprofloxacin (Cipro 400mg/200ml Dsw) 400 mg in 200 mls @ 133 mls/hr IVPB Q12H [facility] PRN Reason: Protocol Last Admin: 06/06/18 13:47 Dose: 133 mls/hr Insulin Human Regular (Novolin R) 0 unit SC Q6 [facility] PRN Reason: Protocol Last Admin: 06/06/18 12:17 Dose: Not Given Ipratropium [place] (Atrovent) 0.5 mg IH RQ6 [facility] Last Admin: 06/06/18 13:10 Dose: Not Given Lactobacillus Acidophilus (Bacid Acidophilus) 1 cap PEG BID [facility] Last Admin: 06/06/18 10:44 Dose: 1 cap Loperamide HCl (Imodium) 1 mg PO Q2H PRN PRN Reason: Diarrhea Last Admin: 06/06/18 11:26 Dose: 1 mg Lorazepam (Ativan) 1 mg IVP BID [facility] Last Admin: 06/06/18 10:42 Dose: 1 mg Metoprolol Tartrate (Lopressor) 5 mg IVP Q6H [facility] Last Admin: 06/06/18 10:42 Dose: 5 mg Nicotine (Nicoderm Cq) 1 patch TD DAILY [facility] Last Admin: 06/06/18 10:44 Dose: 1 patch Nystatin (Mycostatin Cream) 0 ea TOP TID [facility] Last Admin: 06/06/18 14:58 Dose: Not Given Ondansetron HCl (Zofran Inj) 4 mg IVP Q6H PRN PRN Reason: Nausea/Vomiting Last Admin: 06/06/18 11:26 Dose: 4 mg Pantoprazole Sodium (Protonix Inj) 40 mg IVP DAILY [facility] Last Admin: 06/06/18 10:42 Dose: 40 mg Saliva Substitute (Mouth Kote 236 Ml) 0 ml MM Q6 PRN PRN Reason: Dry mouth Vitamin A (Vitamin A & D Oint Ud Foilpak) 1 ea TOP Q8 PRN PRN Reason: dry lips Last Admin: 05/20/18 11:10 Dose: 1 ea - Labs Labs: 06/05/18 07:44 06/05/18 07:44 PT 16.0 SECONDS (9.7-12.2) H 05/26/18 06:32 INR 1.5 05/26/18 06:32 APTT 33 SECONDS (21-34) 05/25/18 06:16 Attending/Attestation - Attestation I have personally seen and examined this patient.: Yes I have fully participated in the care of the patient.: Yes I have reviewed all pertinent clinical information, including history, physical exam and plan: Yes Notes (Text): Pt was seen and examined at bedside Agree with above note and assessment Pt is improving clinically Place wound vac on midline wound c.w current mx Plan d.w pt and primary team in detail
[2018-06-01] MEDS: DiphenhydrAMINE 50 mg/ml Inj IVP PRN (21:32)
--- NOTE | 2018-06-01 22:52 | CP.PCM.PN ---
Subjective - Date & Time of Evaluation Date of Evaluation: 06/01/18 Time of Evaluation: 18:25 - Subjective Subjective: dictated Objective - Vital Signs/Intake and Output Vital Signs (last 24 hours): Temp Pulse Resp BP Pulse Ox 98.8 F 124 H 20 105/73 95 06/01/18 15:34 06/01/18 20:00 06/01/18 15:34 06/01/18 15:34 06/01/18 15:34 Intake and Output: 06/01/18 06/02/18 18:59 06:59 Output Total 550 Balance -550 - Medications Medications: Current Medications Acetaminophen (Tylenol 650mg/20.3ml Solution Ud) 975 mg GT Q8 [facility] Last Admin: 06/01/18 21:31 Dose: 975 mg Cholestyramine Resin (Questran) 4 gm PO BID [facility] Last Admin: 06/01/18 17:06 Dose: 4 gm Dextrose (Dextrose 50% Inj) 0 ml IV STAT PRN; Protocol PRN Reason: Hypoglycemia Protocol Last Admin: 05/16/18 23:40 Dose: 50 ml Dextrose (Glutose 15) 0 gm PO ONCE PRN; Protocol PRN Reason: Hypoglycemia Protocol Diphenhydramine HCl (Benadryl) 25 mg IVP HS PRN PRN Reason: Insomnia Last Admin: 06/01/18 21:32 Dose: 25 mg Enoxaparin Sodium (Lovenox) 40 mg SC DAILY [facility] Last Admin: 06/01/18 10:02 Dose: 40 mg Ergocalciferol (Drisdol 50,000 Intl Units Cap) 1 cap PO Q7D [facility] Stop: 07/20/18 10:31 Last Admin: 06/01/18 12:13 Dose: 1 cap Escitalopram Oxalate (Lexapro) 5 mg NG DAILY [facility] Last Admin: 06/01/18 10:02 Dose: 5 mg Glucagon (Glucagen Diagnostic Kit) 0 mg IM STAT PRN; Protocol PRN Reason: Hypoglycemia Protocol Hydrocortisone (Cortizone 1% Cream) 0 gm TOP TID PRN PRN Reason: Rash Hydromorphone HCl (Dilaudid) 1.5 mg IVP Q3 PRN PRN Reason: Pain, SEVERE (8-10) Last Admin: 06/01/18 20:08 Dose: 1.5 mg Metronidazole (Flagyl) 500 mg in 100 mls @ 100 mls/hr IVPB Q8H [facility] PRN Reason: Protocol Last Admin: 06/01/18 19:54 Dose: 100 mls/hr Potassium Chloride/Dextrose/Sod Cl (Potassium Chl 30 Meq In D5-1/2ns) 1,000 mls @ 80 mls/hr IV .[id number] [facility] Last Admin: 06/01/18 20:16 Dose: Not Given Insulin Human Regular (Novolin R) 0 unit SC Q6 [facility] PRN Reason: Protocol Last Admin: 06/01/18 17:53 Dose: Not Given Ipratropium [place] (Atrovent) 0.5 mg IH RQ6 [facility] Last Admin: 06/01/18 19:36 Dose: 0.5 mg Lactobacillus Acidophilus (Bacid Acidophilus) 1 cap PEG BID [facility] Last Admin: 06/01/18 17:06 Dose: 1 cap Loperamide HCl (Imodium) 1 mg PO Q2H PRN PRN Reason: Diarrhea Last Admin: 06/01/18 10:01 Dose: 1 mg Lorazepam (Ativan) 1 mg IVP BID [facility] Last Admin: 06/01/18 18:35 Dose: 1 mg Metoprolol Tartrate (Lopressor) 5 mg IVP Q6H [facility] Last Admin: 06/01/18 21:32 Dose: 5 mg Nicotine (Nicoderm Cq) 1 patch TD DAILY [facility] Last Admin: 06/01/18 10:02 Dose: 1 patch Nystatin (Mycostatin Cream) 0 ea TOP TID [facility] Last Admin: 06/01/18 17:06 Dose: 1 dose Pantoprazole Sodium (Protonix Inj) 40 mg IVP DAILY [facility] Last Admin: 06/01/18 10:02 Dose: 40 mg Saliva Substitute (Mouth Kote 236 Ml) 0 ml MM Q6 PRN PRN Reason: Dry mouth Vitamin A (Vitamin A & D Oint Ud Foilpak) 1 ea TOP Q8 PRN PRN Reason: dry lips Last Admin: 05/20/18 11:10 Dose: 1 ea - Labs Labs: 06/01/18 07:14 06/01/18 07:14 PT 16.0 SECONDS (9.7-12.2) H 05/26/18 06:32 INR 1.5 05/26/18 06:32 APTT 33 SECONDS (21-34) 05/25/18 06:16
[2018-06-02] MEDS: Ipratropium 0.02% Inhal Soln (0.5 mg/2.5 ml) UD IH SCH ×4 (01:33→19:18)
[2018-06-02] MEDS: Metoprolol 1 mg/ml Inj IVP SCH ×4 (04:27→21:15)
[2018-06-02] MEDS: metroNIDAZOLE IV 500 mg/100 ml 500 MG/100 ML BAG IVPB SCH ×3 (04:27→19:01)
[2018-06-02] MEDS: Acetaminophen 650mg/20.3ml solution UD GT SCH ×4 (05:29→22:47)
[2018-06-02] MEDS: Loperamide Hydrochloride 1 mg/5 ml Cup PO PRN ×3 (05:36→22:29)
[2018-06-02] MEDS: (Novolin R) Insulin Human Regular 100 units/ml vial SC SCH ×3 (06:36→17:22)
[2018-06-02] MEDS: Potassium Chl 30 mEq in D5-1/2 1,000 ML IV SCH (06:37)
--- NOTE | 2018-06-02 07:02 | PN ---
Copied To: Guero Rivera MD Attending MD: Guero Rivera MD DATE: 06/01/2018 SUBJECTIVE: The patient was seen late this evening. She was getting ready. She looks . She was getting respiratory treatment. PHYSICAL EXAMINATION: VITAL SIGNS: T-max 98.8, heart rate remains 119, blood pressure 105/73, respirations are 20. HEENT: Head is atraumatic and normocephalic. She has NG tube there. LUNGS: Clear. HEART: S1 and S2, tachycardiac. ABDOMEN: She said the surgical dressing was just changed, and the J-tube remained intact. EXTREMITIES: No edema. Labs are noted. White count is 8.9, hemoglobin 8.1, hematocrit 24.1, platelet count is 504. Creatinine 0.5 and BUN is 21, and her alkaline phosphatase is 153. Albumin is 2.9. Her other medications, she remains on cholestyramine, Dextrose, and she was on Flagyl and Diflucan alone only fell off, but has made no difference right now. So, we will continue Flagyl at this time, and I think the Diflucan and keep her on Flagyl for few days more, and I will begin to discontinue this also if she is stable. The patient is status post ischemic bowel disease and has had bypass before and still looking for other surgery, and we will follow. Guero Rivera MD
--- NOTE | 2018-06-02 07:39 | CP.PCM.PN ---
<Maggie Dailey - Last Filed: 06/02/18 07:41> Subjective - Date & Time of Evaluation Date of Evaluation: 06/02/18 Time of Evaluation: 07:00 - Subjective Subjective: GENERAL SURGERY PROGRESS NOTE FOR DR. TIAN Patient seen and examined at bedside. She denies nausea or vomiting. She reports that her diarrhea has improved. Objective - Vital Signs/Intake and Output Vital Signs (last 24 hours): Temp Pulse Resp BP Pulse Ox 98.6 F 115 H 20 116/83 97 06/02/18 04:05 06/02/18 04:05 06/02/18 04:05 06/02/18 04:05 06/02/18 04:05 Intake and Output: 06/02/18 06/02/18 06:59 18:59 Intake Total 1300 Output Total 2300 Balance -1000 - Medications Medications: Current Medications Acetaminophen (Tylenol 650mg/20.3ml Solution Ud) 975 mg GT Q8 [facility] Last Admin: 06/02/18 05:29 Dose: 975 mg Cholestyramine Resin (Questran) 4 gm PO BID [facility] Last Admin: 06/01/18 17:06 Dose: 4 gm Dextrose (Dextrose 50% Inj) 0 ml IV STAT PRN; Protocol PRN Reason: Hypoglycemia Protocol Last Admin: 05/16/18 23:40 Dose: 50 ml Dextrose (Glutose 15) 0 gm PO ONCE PRN; Protocol PRN Reason: Hypoglycemia Protocol Diphenhydramine HCl (Benadryl) 25 mg IVP HS PRN PRN Reason: Insomnia Last Admin: 06/01/18 21:32 Dose: 25 mg Enoxaparin Sodium (Lovenox) 40 mg SC DAILY [facility] Last Admin: 06/01/18 10:02 Dose: 40 mg Ergocalciferol (Drisdol 50,000 Intl Units Cap) 1 cap PO Q7D [facility] Stop: 07/20/18 10:31 Last Admin: 06/01/18 12:13 Dose: 1 cap Escitalopram Oxalate (Lexapro) 5 mg NG DAILY [facility] Last Admin: 06/01/18 10:02 Dose: 5 mg Glucagon (Glucagen Diagnostic Kit) 0 mg IM STAT PRN; Protocol PRN Reason: Hypoglycemia Protocol Hydrocortisone (Cortizone 1% Cream) 0 gm TOP TID PRN PRN Reason: Rash Hydromorphone HCl (Dilaudid) 1.5 mg IVP Q3 PRN PRN Reason: Pain, SEVERE (8-10) Last Admin: 06/02/18 05:28 Dose: 1.5 mg Metronidazole (Flagyl) 500 mg in 100 mls @ 100 mls/hr IVPB Q8H [facility] PRN Reason: Protocol Last Admin: 06/02/18 04:27 Dose: 100 mls/hr Potassium Chloride/Dextrose/Sod Cl (Potassium Chl 30 Meq In D5-1/2ns) 1,000 mls @ 80 mls/hr IV .[id number] [facility] Last Admin: 06/02/18 06:37 Dose: Not Given Insulin Human Regular (Novolin R) 0 unit SC Q6 [facility] PRN Reason: Protocol Last Admin: 06/02/18 06:36 Dose: Not Given Ipratropium [place] (Atrovent) 0.5 mg IH RQ6 [facility] Last Admin: 06/02/18 01:33 Dose: Not Given Lactobacillus Acidophilus (Bacid Acidophilus) 1 cap PEG BID [facility] Last Admin: 06/01/18 17:06 Dose: 1 cap Loperamide HCl (Imodium) 1 mg PO Q2H PRN PRN Reason: Diarrhea Last Admin: 06/02/18 05:36 Dose: 1 mg Lorazepam (Ativan) 1 mg IVP BID [facility] Last Admin: 06/01/18 18:35 Dose: 1 mg Metoprolol Tartrate (Lopressor) 5 mg IVP Q6H [facility] Last Admin: 06/02/18 04:27 Dose: 5 mg Nicotine (Nicoderm Cq) 1 patch TD DAILY [facility] Last Admin: 06/01/18 10:02 Dose: 1 patch Nystatin (Mycostatin Cream) 0 ea TOP TID [facility] Last Admin: 06/01/18 17:06 Dose: 1 dose Pantoprazole Sodium (Protonix Inj) 40 mg IVP DAILY [facility] Last Admin: 06/01/18 10:02 Dose: 40 mg Saliva Substitute (Mouth Kote 236 Ml) 0 ml MM Q6 PRN PRN Reason: Dry mouth Vitamin A (Vitamin A & D Oint Ud Foilpak) 1 ea TOP Q8 PRN PRN Reason: dry lips Last Admin: 05/20/18 11:10 Dose: 1 ea - Labs Labs: 06/01/18 07:14 06/01/18 07:14 PT 16.0 SECONDS (9.7-12.2) H 05/26/18 06:32 INR 1.5 05/26/18 06:32 APTT 33 SECONDS (21-34) 05/25/18 06:16 - Constitutional Appears: Non-toxic, No Acute Distress - Head Exam Head Exam: ATRAUMATIC, NORMAL INSPECTION - Eye Exam Eye Exam: EOMI, Normal appearance - Respiratory Exam Respiratory Exam: NORMAL BREATHING PATTERN. absent: Respiratory Distress - Cardiovascular Exam Cardiovascular Exam: Tachycardia - GI/Abdominal Exam GI & Abdominal Exam: Soft. absent: Distended, Firm, Guarding, Rigid, Tenderness , Rebound Additional comments: Gastrostomy tube in place with tube feeds @45cc/hr Midline incision dressing changed, iodaform removed and re-packed - Neurological Exam Neurological Exam: Alert, Awake, Oriented x3 - Psychiatric Exam Psychiatric exam: Normal Affect, Normal Mood - Skin Skin Exam: Normal Color, Warm Assessment and Plan - Assessment and Plan (Free Text) Assessment: 38yo F with PMHx of yenni-en-Y gastric bypass in 2013, found to have bowel ischemia secondary to internal hernia. POD#19 s/p Exploratory laparotomy, Reduction of internal hernia, DANNI, Drainage of abdominal collections, temporary abdominal closure (fascia left open), EGD. POD#16 s/p Re-exploration, Small bowel resection of ileum, small bowel resection of Yenni limb including previous gastrojejunostomy, reversal of bypass , primary anastomosis of ileum-ileum, ileum-ileum, and ileum-jejunum, Gastrostomy tube in bypassed stomach, EGD - Continue tube feeds - PICC was placed yesterday, will remove TLC - Packing removed and replaced and dressing changed on midline incision - Will return to OR to restore GI continuity once pt nutritionally optimized - Continue abx per ID - C/w DVT ppx - Discussed plan with Dr. Cricket Dailey PGY-4 <Gómez Harley - Last Filed: 06/06/18 15:29> Objective - Vital Signs/Intake and Output Vital Signs (last 24 hours): Temp Pulse Resp BP Pulse Ox 98.4 F 99 H 18 104/74 94 L 06/06/18 07:35 06/06/18 07:35 06/06/18 07:35 06/06/18 07:35 06/06/18 07:35 Intake and Output: 06/06/18 06/06/18 06:59 18:59 Intake Total 700 Output Total 360 Balance 340 - Medications Medications: Current Medications Acetaminophen (Tylenol 650mg/20.3ml Solution Ud) 975 mg GT Q8 [facility] Last Admin: 06/06/18 13:46 Dose: 975 mg Cholestyramine Resin (Questran) 4 gm PO BID [facility] Last Admin: 06/06/18 10:44 Dose: 4 gm Dextrose (Dextrose 50% Inj) 0 ml IV STAT PRN; Protocol PRN Reason: Hypoglycemia Protocol Last Admin: 05/16/18 23:40 Dose: 50 ml Dextrose (Glutose 15) 0 gm PO ONCE PRN; Protocol PRN Reason: Hypoglycemia Protocol Diphenhydramine HCl (Benadryl) 25 mg IVP HS PRN PRN Reason: Insomnia Last Admin: 06/05/18 22:25 Dose: 25 mg Enoxaparin Sodium (Lovenox) 40 mg SC DAILY [facility] Last Admin: 06/06/18 10:44 Dose: 40 mg Ergocalciferol (Drisdol 50,000 Intl Units Cap) 1 cap PO Q7D [facility] Stop: 07/20/18 10:31 Last Admin: 06/01/18 12:13 Dose: 1 cap Escitalopram Oxalate (Lexapro) 10 mg GT DAILY [facility] Last Admin: 06/06/18 10:44 Dose: 10 mg Glucagon (Glucagen Diagnostic Kit) 0 mg IM STAT PRN; Protocol PRN Reason: Hypoglycemia Protocol Hydrocortisone (Cortizone 1% Cream) 0 gm TOP TID PRN PRN Reason: Rash Hydromorphone HCl (Dilaudid) 1.5 mg IVP Q3 PRN PRN Reason: Pain, SEVERE (8-10) Last Admin: 06/06/18 13:43 Dose: 1.5 mg Metronidazole (Flagyl) 500 mg in 100 mls @ 100 mls/hr IVPB Q8H [facility] PRN Reason: Protocol Last Admin: 06/06/18 12:45 Dose: 100 mls/hr Ciprofloxacin (Cipro 400mg/200ml Dsw) 400 mg in 200 mls @ 133 mls/hr IVPB Q12H [facility] PRN Reason: Protocol Last Admin: 06/06/18 13:47 Dose: 133 mls/hr Insulin Human Regular (Novolin R) 0 unit SC Q6 [facility] PRN Reason: Protocol Last Admin: 06/06/18 12:17 Dose: Not Given Ipratropium [place] (Atrovent) 0.5 mg IH RQ6 [facility] Last Admin: 06/06/18 13:10 Dose: Not Given Lactobacillus Acidophilus (Bacid Acidophilus) 1 cap PEG BID [facility] Last Admin: 06/06/18 10:44 Dose: 1 cap Loperamide HCl (Imodium) 1 mg PO Q2H PRN PRN Reason: Diarrhea Last Admin: 06/06/18 11:26 Dose: 1 mg Lorazepam (Ativan) 1 mg IVP BID [facility] Last Admin: 06/06/18 10:42 Dose: 1 mg Metoprolol Tartrate (Lopressor) 5 mg IVP Q6H [facility] Last Admin: 06/06/18 10:42 Dose: 5 mg Nicotine (Nicoderm Cq) 1 patch TD DAILY [facility] Last Admin: 06/06/18 10:44 Dose: 1 patch Nystatin (Mycostatin Cream) 0 ea TOP TID [facility] Last Admin: 06/06/18 14:58 Dose: Not Given Ondansetron HCl (Zofran Inj) 4 mg IVP Q6H PRN PRN Reason: Nausea/Vomiting Last Admin: 06/06/18 11:26 Dose: 4 mg Pantoprazole Sodium (Protonix Inj) 40 mg IVP DAILY [facility] Last Admin: 06/06/18 10:42 Dose: 40 mg Saliva Substitute (Mouth Kote 236 Ml) 0 ml MM Q6 PRN PRN Reason: Dry mouth Vitamin A (Vitamin A & D Oint Ud Foilpak) 1 ea TOP Q8 PRN PRN Reason: dry lips Last Admin: 05/20/18 11:10 Dose: 1 ea - Labs Labs: 06/05/18 07:44 06/05/18 07:44 PT 16.0 SECONDS (9.7-12.2) H 05/26/18 06:32 INR 1.5 05/26/18 06:32 APTT 33 SECONDS (21-34) 05/25/18 06:16 Attending/Attestation - Attestation I have personally seen and examined this patient.: Yes I have fully participated in the care of the patient.: Yes I have reviewed all pertinent clinical information, including history, physical exam and plan: Yes Notes (Text): Pt was seen and examined at bedside Agree with above note and assessment Tolerating tube feds Local wound care c.w current mx Plan d.w pt and primary team in detail
[2018-06-02 07:40] LABS: BASO # 0.1 K/uL (0.0-0.2); BASO % 0.8 % (0.0-2.0); EOS # 0.3 K/uL (0.0-0.7); EOS % 3.9 % (0.0-4.0); HEMOGLOBIN 7.9 g/dL (11.0-16.0); LYMPH # 2.2 K/uL (1.0-4.3); LYMPH % 28.1 % (20.0-40.0); MEAN CELL VOLUME 86.9 fL (81.0-99.0); MEAN CORPUSCULAR HEMOGLOBIN 29.2 pg (27.0-31.0); MEAN CORPUSCULAR HGB CONC 33.6 g/dL (33.0-37.0); MEAN PLATELET VOLUME 7.8 fL (7.2-11.7); MONO # 0.7 K/uL (0.0-0.8); MONO % 8.7 % (0.0-10.0); NEUT # 4.7 K/uL (1.8-7.0); NEUT % 58.5 % (50.0-75.0); NRBC % 0.1 % (0.0-2.0); RBC 2.7 Mil/uL (3.80-5.20); RED CELL DISTRIBUTION WIDTH 16.4 % (11.5-14.5)
[2018-06-02 07:53] LABS: ALB/GLOB RATIO 0.9 (1.0-2.1); ALBUMIN 2.7 g/dL (3.5-5.0); ALT/SGPT 23 U/L (9-52); AST/SGOT 27 U/L (14-36); BLOOD UREA NITROGEN 13 mg/dL (7-17); CALCIUM 8.3 mg/dl (8.6-10.4); GFR NON-AFRICAN AMERICAN > 60
[2018-06-02] MEDS: Enoxaparin 40 mg Syringe SC SCH (10:08)
[2018-06-02] MEDS: Nystatin 100,000 Units/gm Cream(15 gm) TOP SCH ×3 (10:08→17:54)
[2018-06-02] MEDS: Lactobacillus Acidophilus 500 MU Cap PEG SCH ×2 (10:09→17:50)
[2018-06-02] MEDS: Cholestyramine 4 gm/Pkt UD PO SCH ×2 (10:09→17:50)
[2018-06-02] MEDS ORDERED: Ciprofloxacin 200mg/100ml D5W 100 ML IVPB SCH (13:00)
--- NOTE | 2018-06-02 18:22 | CP.PCM.PN ---
<Yanelis Hudson - Last Filed: 06/02/18 18:19> Subjective - Date & Time of Evaluation Date of Evaluation: 06/02/18 Time of Evaluation: 07:20 - Subjective Subjective: PGY-1 Yanelis Hudson D.O. Medicine progress note for Dr. Franki Denise's service: Patient is seen and examined this morning. She is not in acute distress. She is tearful throughout the exam. She expresses frustrating with being in the hospital for so long. Her diarrhea is improving. She denies any PO intake. She is complaining of abdominal pain and drainage from the surgical incision site. Objective - Vital Signs/Intake and Output Vital Signs (last 24 hours): Temp Pulse Resp BP Pulse Ox 98.2 F 118 H 20 111/77 97 06/02/18 15:00 06/02/18 16:00 06/02/18 15:00 06/02/18 15:00 06/02/18 15:00 Intake and Output: 06/02/18 06/02/18 06:59 18:59 Intake Total 1300 Output Total 2300 800 Balance -1000 -800 - Medications Medications: Current Medications Acetaminophen (Tylenol 650mg/20.3ml Solution Ud) 975 mg GT Q8 [facility] Last Admin: 06/02/18 14:18 Dose: 975 mg Cholestyramine Resin (Questran) 4 gm PO BID [facility] Last Admin: 06/02/18 17:50 Dose: 4 gm Dextrose (Dextrose 50% Inj) 0 ml IV STAT PRN; Protocol PRN Reason: Hypoglycemia Protocol Last Admin: 05/16/18 23:40 Dose: 50 ml Dextrose (Glutose 15) 0 gm PO ONCE PRN; Protocol PRN Reason: Hypoglycemia Protocol Diphenhydramine HCl (Benadryl) 25 mg IVP HS PRN PRN Reason: Insomnia Last Admin: 06/01/18 21:32 Dose: 25 mg Enoxaparin Sodium (Lovenox) 40 mg SC DAILY [facility] Last Admin: 06/02/18 10:08 Dose: 40 mg Ergocalciferol (Drisdol 50,000 Intl Units Cap) 1 cap PO Q7D [facility] Stop: 07/20/18 10:31 Last Admin: 06/01/18 12:13 Dose: 1 cap Escitalopram Oxalate (Lexapro) 5 mg NG DAILY [facility] Last Admin: 06/02/18 10:09 Dose: 5 mg Glucagon (Glucagen Diagnostic Kit) 0 mg IM STAT PRN; Protocol PRN Reason: Hypoglycemia Protocol Hydrocortisone (Cortizone 1% Cream) 0 gm TOP TID PRN PRN Reason: Rash Hydromorphone HCl (Dilaudid) 1.5 mg IVP Q3 PRN PRN Reason: Pain, SEVERE (8-10) Last Admin: 06/02/18 17:50 Dose: 1.5 mg Metronidazole (Flagyl) 500 mg in 100 mls @ 100 mls/hr IVPB Q8H [facility] PRN Reason: Protocol Last Admin: 06/02/18 12:13 Dose: 100 mls/hr Potassium Chloride/Dextrose/Sod Cl (Potassium Chl 30 Meq In D5-1/2ns) 1,000 mls @ 80 mls/hr IV .[id number] [facility] Last Admin: 06/02/18 06:37 Dose: Not Given Ciprofloxacin (Cipro 400mg/200ml Dsw) 400 mg in 200 mls @ 133 mls/hr IVPB Q12H [facility] PRN Reason: Protocol Insulin Human Regular (Novolin R) 0 unit SC Q6 [facility] PRN Reason: Protocol Last Admin: 06/02/18 17:22 Dose: Not Given Ipratropium [place] (Atrovent) 0.5 mg IH RQ6 [facility] Last Admin: 06/02/18 13:02 Dose: 0.5 mg Lactobacillus Acidophilus (Bacid Acidophilus) 1 cap PEG BID [facility] Last Admin: 06/02/18 17:50 Dose: 1 cap Loperamide HCl (Imodium) 1 mg PO Q2H PRN PRN Reason: Diarrhea Last Admin: 06/02/18 10:08 Dose: 1 mg Lorazepam (Ativan) 1 mg IVP BID [facility] Last Admin: 06/02/18 10:08 Dose: 1 mg Metoprolol Tartrate (Lopressor) 5 mg IVP Q6H [facility] Last Admin: 06/02/18 17:50 Dose: 5 mg Nicotine (Nicoderm Cq) 1 patch TD DAILY [facility] Last Admin: 06/02/18 10:09 Dose: 1 patch Nystatin (Mycostatin Cream) 0 ea TOP TID [facility] Last Admin: 06/02/18 17:54 Dose: 1 dose Pantoprazole Sodium (Protonix Inj) 40 mg IVP DAILY [facility] Last Admin: 06/02/18 10:11 Dose: 40 mg Saliva Substitute (Mouth Kote 236 Ml) 0 ml MM Q6 PRN PRN Reason: Dry mouth Vitamin A (Vitamin A & D Oint Ud Foilpak) 1 ea TOP Q8 PRN PRN Reason: dry lips Last Admin: 05/20/18 11:10 Dose: 1 ea - Labs Labs: 06/02/18 07:25 06/02/18 07:25 PT 16.0 SECONDS (9.7-12.2) H 05/26/18 06:32 INR 1.5 05/26/18 06:32 APTT 33 SECONDS (21-34) 05/25/18 06:16 - Constitutional Appears: Non-toxic, No Acute Distress - Head Exam Head Exam: ATRAUMATIC, NORMAL INSPECTION, NORMOCEPHALIC - Eye Exam Eye Exam: EOMI, Normal appearance - ENT Exam ENT Exam: Mucous Membranes Moist, Normal Exam - Neck Exam Neck Exam: Normal Inspection - Respiratory Exam Respiratory Exam: Clear to Ausculation Bilateral, NORMAL BREATHING PATTERN - Cardiovascular Exam Cardiovascular Exam: REGULAR RHYTHM - GI/Abdominal Exam GI & Abdominal Exam: Soft, Tenderness, Hypoactive Bowel Sounds Additional comments: Srivastava cath in place of G-tube, clean dressings over cath and surgical incision midline - Rectal Exam Rectal Exam: Deferred - Extremities Exam Extremities Exam: Normal Capillary Refill, Normal Inspection - Back Exam Back Exam: NORMAL INSPECTION - Neurological Exam Neurological Exam: Alert, Awake, CN II-XII Intact, Oriented x3 - Psychiatric Exam Psychiatric exam: Depressed - Skin Skin Exam: Dry, Intact, Normal Color, Warm Assessment and Plan - Assessment and Plan (Free Text) Assessment: Patient is a 37 yo female with a history of gastric bypass in 2013 who presented with severe abdominal pain. She was found to have bowel ischemia 2/2 internal hernia. Patient underwent ex lap on 05/14 and again on 05/16. She will need a repeat surgery 4-6 weeks from the first. She currently has an NGT and is utilizing a G tube for nutrition/meds. Plan: Patient's midline incision is poorly healing and continues to have drainage. Suspect patient developed a fistula. Plan as per surgery is still to resume feeds via gastrostomy site and change abdominal dressing frequently. PICC line in R arm. Blood work now every other day. Measure vitamin levels and replace as needed - Vit D <12.8- vit D 50,000 units q1wk x8 wks - Prealbumin 18.1 - B12 707 - Folate 12.6 - F/u A, B1, B6, E Ischemic bowel disease- 2/2 to internal hernias producing bowel obstruction - Pre-op CT A/P (05/13/18): Writhing appearance of mesenteric vessels. Mesenteric edema. No evidence of bowel obstruction. Whirling appearance of mesenteric vessels is nonspecific. Prominent mesenteric lymph nodes. Mesenteric edema. - Lactate: 3.6 (pre-op)-->2.4 (post-op)-->0.9 - Initially stool occult blood positive- patient denies bloody BMs presently , Hgb stable - Patient required emergent surgical intervention on 05/14/18 and transferred to ICU. Patient had a second surgery on 05/16/18. - Per operative note (05/14/18): Diagnostic laparoscopy, Exploratory laparotomy, Reduction of internal hernia, Lysis of adhesions, Drainage of abdominal collections, temporary abdominal closure, EGD. Ischemia of yenni limb, internal hernia. [place] drain stitched to distal common limb - Per operative note (05/16/18): Re-exploration, Small bowel resection of ileum, small bowel resection of Yenni limb with gastrojejunostomy, reversal of bypass, primary anastomosis of ileum-ileum, ileum-ileum, and ileum- jejunum, Gastrostomy tube in bypassed stomach, EGD - Will need f/u surgery in 4-6 weeks from original surgery date (05/14) to restore GI - GI series w/ small bowel (05/24/18): no evidence of postsurgical leak - Current drains include: NGT, gastrostomy tube- temporary Srivastava in place after G-tube "fell out" on 05/30 - Cultures: Peritoneal Fluid (05/14/18): Pseudomonas Aeruginosa sensitive to Meropenem Wound Culture (05/23/18): Yudith albicans Blood culture (05/15/18, 05/22/18): no growth Urine culture (05/22/18): no growth - F/u wound Cx from incision site 05/31: Enterococcus faecalis, Acinetobacter baumannii - Start Cipro 400 mg IV q12hrs (started 06/02) - Discontinued Meropenem 1 gm IVPB Q8H (active since 05/15/18-05/27/18) - Flagyl 500mg IVPB Q8H (active since 05/15/18) - Nystatin cream TID for G-tube site (Yudith) - Tylenol 975 mg liq q8hrs - Dilaudid 1.5 mg IV q3hrs PRN - Surgery consulted (Dr. Harley) - GI consulted (Dr. Alvarado) - ID consulted (Dr. Rivera)- d/c abx, continue Diflucan - PT consulted- working with patient, current rec TCU following discharge Tachycardia, persistent (110s-130s)- possibly etiologies include pain, infection , anxiety - She is being treated for Left G Tube fluid infection. She has been started on Ativan PRN. She has Dilaudid on board to be used PRN. - Metoprolol tartrate 5 mg IV q6hrs with holding parameters (SBP <100, HR <60 ) Leukocytosis, improved (8.9)- likely 2/2 to ischemic bowel 2/2 to small bowel obstruction and surgeries - Procalcitonin: 0.44 - Cultures: Peritoneal Fluid (05/14/18): Pseudomonas Aeruginosa sensitive to Meropenem Wound Culture (05/23/18): Yudith albicans Blood culture (05/15/18, 05/22/18): no growth Urine culture (05/22/18): no growth - Wound Cx from incision site 05/31: Enterococcus faecalis, Acinetobacter baumannii - Monitor CBC QOD Diarrhea, acute, improving- suspect 2/2 PO intake by pt - C. Diff (05/22, 05/24, 05/28): negative - Stool O&P (05/25/18): negative - Stool leukocytes (05/25/18): negative Anxiety - Patient was taking Xanax for anxiety noted in prior note - Ativan 1 mg IV BID - Lexapro 5 mg PO daily (started 05/31) - Director Medical Writing consulted- pt initially refused but then accepted - Psychiatry consulted (Dr. Reyez)- managing Ativan Anemia, acute, stable (Hgb 7.9)- pt denies blood in stool - Patient received a total of 2 PRBC and 4 FFP - Iron 16, TIBC 205, % sat 4.7, ferritin 75.3 - Monitor CBC QOD Thombocytosis, improving (504)- suspect reactive to pain, surgery - Monitor CBC QOD T2DM, controlled - From prior note: Admittedly non-compliant, has not taken Januvia for one year - Accuchecks q6hrs - Hypoglycemic protocol - ISS regular - HbA1c 5.8 - History of gastric bypass surgery Hypercholesterolemia- untreated - LDL 38, HDL 14, Chol 104, TG 226 - History of gastric bypass surgery - F/u lipid panel 06/03 Hx of HTN, controlled- since gastric bypass has not taken meds - Metoprolol 5 mg IV q6hrs Hx of Obesity, resolved - s/p gastric bypass surgery in 2013 Hx of Asthma- patient not in acute exacerbation - Atrovent q6hrs Nicotine use disorder - From prior note: 1ppd x 20 yrs, 1/2 ppd x 3 yrs - Nicoderm 1 patch TD QD Hydrocortisone 1% Cream topical TID for Right Upper Inner Arm macular rash- improved Vitamin A&D topical q8hrs PRN for dry lips Saliva substitute q6hrs PRN for dry mouth IVF: not indicated VTE ppx: Lovenox 40 mg SC daily, SCDs GI ppx: Protonix 40 mg IV BID, Florastor BID Diet: feeds via gastrostomy (temporary Srivastava in place)- managed by surgery Code status: full code Dispo: awaiting follow-up surgery and surgical team's recs <Franki Denise - Last Filed: 06/02/18 18:57> Objective - Vital Signs/Intake and Output Vital Signs (last 24 hours): Temp Pulse Resp BP Pulse Ox 98.2 F 118 H 20 111/77 97 06/02/18 15:00 06/02/18 16:00 06/02/18 15:00 06/02/18 15:00 06/02/18 15:00 Intake and Output: 06/02/18 06/02/18 06:59 18:59 Intake Total 1300 Output Total 2300 800 Balance -1000 -800 - Medications Medications: Current Medications Acetaminophen (Tylenol 650mg/20.3ml Solution Ud) 975 mg GT Q8 [facility] Last Admin: 06/02/18 14:18 Dose: 975 mg Cholestyramine Resin (Questran) 4 gm PO BID [facility] Last Admin: 06/02/18 17:50 Dose: 4 gm Dextrose (Dextrose 50% Inj) 0 ml IV STAT PRN; Protocol PRN Reason: Hypoglycemia Protocol Last Admin: 05/16/18 23:40 Dose: 50 ml Dextrose (Glutose 15) 0 gm PO ONCE PRN; Protocol PRN Reason: Hypoglycemia Protocol Diphenhydramine HCl (Benadryl) 25 mg IVP HS PRN PRN Reason: Insomnia Last Admin: 06/01/18 21:32 Dose: 25 mg Enoxaparin Sodium (Lovenox) 40 mg SC DAILY [facility] Last Admin: 06/02/18 10:08 Dose: 40 mg Ergocalciferol (Drisdol 50,000 Intl Units Cap) 1 cap PO Q7D [facility] Stop: 07/20/18 10:31 Last Admin: 06/01/18 12:13 Dose: 1 cap Escitalopram Oxalate (Lexapro) 5 mg NG DAILY [facility] Last Admin: 06/02/18 10:09 Dose: 5 mg Glucagon (Glucagen Diagnostic Kit) 0 mg IM STAT PRN; Protocol PRN Reason: Hypoglycemia Protocol Hydrocortisone (Cortizone 1% Cream) 0 gm TOP TID PRN PRN Reason: Rash Hydromorphone HCl (Dilaudid) 1.5 mg IVP Q3 PRN PRN Reason: Pain, SEVERE (8-10) Last Admin: 06/02/18 17:50 Dose: 1.5 mg Metronidazole (Flagyl) 500 mg in 100 mls @ 100 mls/hr IVPB Q8H [facility] PRN Reason: Protocol Last Admin: 06/02/18 12:13 Dose: 100 mls/hr Ciprofloxacin (Cipro 400mg/200ml Dsw) 400 mg in 200 mls @ 133 mls/hr IVPB Q12H [facility] PRN Reason: Protocol Insulin Human Regular (Novolin R) 0 unit SC Q6 [facility] PRN Reason: Protocol Last Admin: 06/02/18 17:22 Dose: Not Given Ipratropium [place] (Atrovent) 0.5 mg IH RQ6 [facility] Last Admin: 06/02/18 13:02 Dose: 0.5 mg Lactobacillus Acidophilus (Bacid Acidophilus) 1 cap PEG BID [facility] Last Admin: 06/02/18 17:50 Dose: 1 cap Loperamide HCl (Imodium) 1 mg PO Q2H PRN PRN Reason: Diarrhea Last Admin: 08/23/18 10:08 Dose: 1 mg Lorazepam (Ativan) 1 mg IVP BID [facility] Last Admin: 06/02/18 10:08 Dose: 1 mg Metoprolol Tartrate (Lopressor) 5 mg IVP Q6H [facility] Last Admin: 06/02/18 17:50 Dose: 5 mg Nicotine (Nicoderm Cq) 1 patch TD DAILY [facility] Last Admin: 06/02/18 10:09 Dose: 1 patch Nystatin (Mycostatin Cream) 0 ea TOP TID [facility] Last Admin: 06/02/18 17:54 Dose: 1 dose Pantoprazole Sodium (Protonix Inj) 40 mg IVP DAILY [facility] Last Admin: 06/02/18 10:11 Dose: 40 mg Saliva Substitute (Mouth Kote 236 Ml) 0 ml MM Q6 PRN PRN Reason: Dry mouth Vitamin A (Vitamin A & D Oint Ud Foilpak) 1 ea TOP Q8 PRN PRN Reason: dry lips Last Admin: 05/20/18 11:10 Dose: 1 ea - Labs Labs: 06/02/18 07:25 06/02/18 07:25 PT 16.0 SECONDS (9.7-12.2) H 05/26/18 06:32 INR 1.5 05/26/18 06:32 APTT 33 SECONDS (21-34) 05/25/18 06:16 Attending/Attestation - Attestation I have personally seen and examined this patient.: Yes I have fully participated in the care of the patient.: Yes I have reviewed all pertinent clinical information, including history, physical exam and plan: Yes Notes (Text): 06/02/18 18:43 Patient was seen and examined at 11:45 AM 06/02/18 Exam, assessment and plan were gone over with the resident Franki Denise D.O.
[2018-06-02] MEDS: DiphenhydrAMINE 50 mg/ml Inj IVP PRN (22:27)
[2018-06-03] MEDS: (Novolin R) Insulin Human Regular 100 units/ml vial SC SCH ×4 (00:19→17:41)
[2018-06-03] MEDS: Ciprofloxacin 400mg/200ml D5W 400 MG/200 ML BAG IVPB SCH ×2 (02:03→13:34)
[2018-06-03] MEDS: Ipratropium 0.02% Inhal Soln (0.5 mg/2.5 ml) UD IH SCH ×4 (02:55→19:29)
[2018-06-03] MEDS: Metoprolol 1 mg/ml Inj IVP SCH ×4 (03:53→22:06)
[2018-06-03] MEDS: metroNIDAZOLE IV 500 mg/100 ml 500 MG/100 ML BAG IVPB SCH ×3 (04:00→20:07)
[2018-06-03] MEDS: Loperamide Hydrochloride 1 mg/5 ml Cup PO PRN ×2 (04:57→18:30)
[2018-06-03] MEDS: Acetaminophen 650mg/20.3ml solution UD GT SCH ×3 (05:06→22:37)
[2018-06-03 07:22] LABS: BASO # 0.1 K/uL (0.0-0.2); EOS # 0.3 K/uL (0.0-0.7); EOS % 3.1 % (0.0-4.0); HEMOGLOBIN 8.1 g/dL (11.0-16.0)
--- NOTE | 2018-06-03 07:24 | CP.PCM.PN ---
<Beverly Lee - Last Filed: 06/03/18 19:58> Subjective - Date & Time of Evaluation Date of Evaluation: 06/03/18 Time of Evaluation: 07:30 - Subjective Subjective: Patient examined at bedside. No acute events overnight. Patient denies chest pain, SOB, nausea, vomiting. 1 loose BM today Objective - Vital Signs/Intake and Output Vital Signs (last 24 hours): Temp Pulse Resp BP Pulse Ox 99.7 F H 100 H 20 123/84 97 06/02/18 23:25 06/03/18 04:05 06/02/18 23:25 06/03/18 03:45 06/02/18 23:25 Intake and Output: 06/03/18 06/03/18 06:59 18:59 Intake Total 1560 Output Total 500 Balance 1060 - Medications Medications: Current Medications Acetaminophen (Tylenol 650mg/20.3ml Solution Ud) 975 mg GT Q8 [facility] Last Admin: 06/03/18 05:06 Dose: 975 mg Cholestyramine Resin (Questran) 4 gm PO BID [facility] Last Admin: 06/02/18 17:50 Dose: 4 gm Dextrose (Dextrose 50% Inj) 0 ml IV STAT PRN; Protocol PRN Reason: Hypoglycemia Protocol Last Admin: 05/16/18 23:40 Dose: 50 ml Dextrose (Glutose 15) 0 gm PO ONCE PRN; Protocol PRN Reason: Hypoglycemia Protocol Diphenhydramine HCl (Benadryl) 25 mg IVP HS PRN PRN Reason: Insomnia Last Admin: 06/02/18 22:27 Dose: 25 mg Enoxaparin Sodium (Lovenox) 40 mg SC DAILY [facility] Last Admin: 06/02/18 10:08 Dose: 40 mg Ergocalciferol (Drisdol 50,000 Intl Units Cap) 1 cap PO Q7D [facility] Stop: 07/20/18 10:31 Last Admin: 06/01/18 12:13 Dose: 1 cap Escitalopram Oxalate (Lexapro) 5 mg NG DAILY [facility] Last Admin: 06/02/18 10:09 Dose: 5 mg Glucagon (Glucagen Diagnostic Kit) 0 mg IM STAT PRN; Protocol PRN Reason: Hypoglycemia Protocol Hydrocortisone (Cortizone 1% Cream) 0 gm TOP TID PRN PRN Reason: Rash Hydromorphone HCl (Dilaudid) 1.5 mg IVP Q3 PRN PRN Reason: Pain, SEVERE (8-10) Last Admin: 06/03/18 06:49 Dose: 1.5 mg Metronidazole (Flagyl) 500 mg in 100 mls @ 100 mls/hr IVPB Q8H [facility] PRN Reason: Protocol Last Admin: 06/03/18 04:00 Dose: 100 mls/hr Ciprofloxacin (Cipro 400mg/200ml Dsw) 400 mg in 200 mls @ 133 mls/hr IVPB Q12H [facility] PRN Reason: Protocol Last Admin: 06/03/18 02:03 Dose: 133 mls/hr Insulin Human Regular (Novolin R) 0 unit SC Q6 [facility] PRN Reason: Protocol Last Admin: 06/03/18 06:54 Dose: Not Given Ipratropium [place] (Atrovent) 0.5 mg IH RQ6 [facility] Last Admin: 06/03/18 02:55 Dose: Not Given Lactobacillus Acidophilus (Bacid Acidophilus) 1 cap PEG BID [facility] Last Admin: 06/02/18 17:50 Dose: 1 cap Loperamide HCl (Imodium) 1 mg PO Q2H PRN PRN Reason: Diarrhea Last Admin: 06/03/18 04:57 Dose: 1 mg Lorazepam (Ativan) 1 mg IVP BID [facility] Last Admin: 06/02/18 18:59 Dose: 1 mg Metoprolol Tartrate (Lopressor) 5 mg IVP Q6H [facility] Last Admin: 06/03/18 03:53 Dose: 5 mg Nicotine (Nicoderm Cq) 1 patch TD DAILY [facility] Last Admin: 06/02/18 10:09 Dose: 1 patch Nystatin (Mycostatin Cream) 0 ea TOP TID [facility] Last Admin: 06/02/18 17:54 Dose: 1 dose Pantoprazole Sodium (Protonix Inj) 40 mg IVP DAILY [facility] Last Admin: 06/02/18 10:11 Dose: 40 mg Saliva Substitute (Mouth Kote 236 Ml) 0 ml MM Q6 PRN PRN Reason: Dry mouth Vitamin A (Vitamin A & D Oint Ud Foilpak) 1 ea TOP Q8 PRN PRN Reason: dry lips Last Admin: 05/20/18 11:10 Dose: 1 ea - Labs Labs: 06/02/18 07:25 06/02/18 07:25 PT 16.0 SECONDS (9.7-12.2) H 05/26/18 06:32 INR 1.5 05/26/18 06:32 APTT 33 SECONDS (21-34) 05/25/18 06:16 - Constitutional Appears: Non-toxic, No Acute Distress - Head Exam Head Exam: ATRAUMATIC, NORMAL INSPECTION, NORMOCEPHALIC - Eye Exam Eye Exam: EOMI, Normal appearance - ENT Exam ENT Exam: Mucous Membranes Moist, Normal Exam - Neck Exam Neck Exam: Normal Inspection. absent: Lymphadenopathy - Respiratory Exam Respiratory Exam: Clear to Ausculation Bilateral, Wheezes, NORMAL BREATHING PATTERN. absent: Rales - Cardiovascular Exam Cardiovascular Exam: Tachycardia, REGULAR RHYTHM, +S1, +S2 - GI/Abdominal Exam GI & Abdominal Exam: Soft, Tenderness. absent: Distended Additional comments: midline incision draining light brown drainage - Extremities Exam Extremities Exam: Normal Inspection. absent: Calf Tenderness, Pedal Edema - Back Exam Back Exam: NORMAL INSPECTION - Neurological Exam Neurological Exam: Alert, Awake, Oriented x3 - Psychiatric Exam Psychiatric exam: Normal Affect, Normal Mood - Skin Skin Exam: Dry, Intact, Normal Color, Warm Assessment and Plan - Assessment and Plan (Free Text) Assessment: 38 year old female s/p ex lap -npo -continue tube feeds as tolerated -wound vac per sx -IV Abx, Cipro 400 q12, flagyl 500mg q8 -dilaudid 1.5 q3 prn -sx consult Dr. Knutson tachycardia -metoprolol 5mg IVP q6 Ppx -lovenox 40mg sc qd -protonix 40mg IV qd -lactobacillus BID Dispo: f/u sx recs <Franki Denise - Last Filed: 06/04/18 14:03> Objective - Vital Signs/Intake and Output Vital Signs (last 24 hours): Temp Pulse Resp BP Pulse Ox 98.3 F 110 H 20 119/80 96 06/04/18 07:26 06/04/18 12:04 06/04/18 07:26 06/04/18 07:26 06/04/18 07:26 Intake and Output: 06/04/18 06/04/18 06:59 18:59 Intake Total 800 Output Total 1200 Balance -400 - Medications Medications: Current Medications Acetaminophen (Tylenol 650mg/20.3ml Solution Ud) 975 mg GT Q8 [facility] Last Admin: 06/04/18 13:54 Dose: 975 mg Cholestyramine Resin (Questran) 4 gm PO BID [facility] Last Admin: 06/04/18 10:22 Dose: 4 gm Dextrose (Dextrose 50% Inj) 0 ml IV STAT PRN; Protocol PRN Reason: Hypoglycemia Protocol Last Admin: 05/16/18 23:40 Dose: 50 ml Dextrose (Glutose 15) 0 gm PO ONCE PRN; Protocol PRN Reason: Hypoglycemia Protocol Diphenhydramine HCl (Benadryl) 25 mg IVP HS PRN PRN Reason: Insomnia Last Admin: 06/03/18 22:06 Dose: 25 mg Enoxaparin Sodium (Lovenox) 40 mg SC DAILY [facility] Last Admin: 06/04/18 10:22 Dose: 40 mg Ergocalciferol (Drisdol 50,000 Intl Units Cap) 1 cap PO Q7D [facility] Stop: 07/20/18 10:31 Last Admin: 06/01/18 12:13 Dose: 1 cap Escitalopram Oxalate (Lexapro) 5 mg NG DAILY [facility] Last Admin: 06/04/18 10:22 Dose: 5 mg Glucagon (Glucagen Diagnostic Kit) 0 mg IM STAT PRN; Protocol PRN Reason: Hypoglycemia Protocol Hydrocortisone (Cortizone 1% Cream) 0 gm TOP TID PRN PRN Reason: Rash Hydromorphone HCl (Dilaudid) 1.5 mg IVP Q3 PRN PRN Reason: Pain, SEVERE (8-10) Last Admin: 06/04/18 13:37 Dose: 1.5 mg Metronidazole (Flagyl) 500 mg in 100 mls @ 100 mls/hr IVPB Q8H [facility] PRN Reason: Protocol Last Admin: 06/04/18 11:54 Dose: 100 mls/hr Ciprofloxacin (Cipro 400mg/200ml Dsw) 400 mg in 200 mls @ 133 mls/hr IVPB Q12H [facility] PRN Reason: Protocol Last Admin: 06/04/18 13:55 Dose: 133 mls/hr Insulin Human Regular (Novolin R) 0 unit SC Q6 [facility] PRN Reason: Protocol Last Admin: 06/04/18 12:16 Dose: Not Given Ipratropium [place] (Atrovent) 0.5 mg IH RQ6 [facility] Last Admin: 06/04/18 13:22 Dose: Not Given Lactobacillus Acidophilus (Bacid Acidophilus) 1 cap PEG BID [facility] Last Admin: 06/04/18 10:20 Dose: 1 cap Loperamide HCl (Imodium) 1 mg PO Q2H PRN PRN Reason: Diarrhea Last Admin: 06/03/18 18:30 Dose: 1 mg Lorazepam (Ativan) 1 mg IVP BID [facility] Last Admin: 06/04/18 10:20 Dose: 1 mg Metoprolol Tartrate (Lopressor) 5 mg IVP Q6H [facility] Last Admin: 06/04/18 10:21 Dose: 5 mg Nicotine (Nicoderm Cq) 1 patch TD DAILY [facility] Last Admin: 06/04/18 10:21 Dose: 1 patch Nystatin (Mycostatin Cream) 0 ea TOP TID [facility] Last Admin: 06/04/18 13:55 Dose: 1 dose Ondansetron HCl (Zofran Inj) 4 mg IVP Q6H PRN PRN Reason: Nausea/Vomiting Last Admin: 06/04/18 10:20 Dose: 4 mg Pantoprazole Sodium (Protonix Inj) 40 mg IVP DAILY [facility] Last Admin: 06/04/18 10:21 Dose: 40 mg Saliva Substitute (Mouth Kote 236 Ml) 0 ml MM Q6 PRN PRN Reason: Dry mouth Vitamin A (Vitamin A & D Oint Ud Foilpak) 1 ea TOP Q8 PRN PRN Reason: dry lips Last Admin: 05/20/18 11:10 Dose: 1 ea - Labs Labs: 06/03/18 06:54 06/03/18 06:54 PT 16.0 SECONDS (9.7-12.2) H 05/26/18 06:32 INR 1.5 05/26/18 06:32 APTT 33 SECONDS (21-34) 05/25/18 06:16 Attending/Attestation - Attestation I have personally seen and examined this patient.: Yes I have fully participated in the care of the patient.: Yes I have reviewed all pertinent clinical information, including history, physical exam and plan: Yes Notes (Text): 06/04/18 14:03 This is a late entry Care of this patient was gone over in detail with the resident Franki Denise D.O.
[2018-06-03 07:31] LABS: LYMPH # 2.7 K/uL (1.0-4.3); LYMPH % 24.6 % (20.0-40.0); MEAN CELL VOLUME 86.9 fL (81.0-99.0); MEAN CORPUSCULAR HGB CONC 33.4 g/dL (33.0-37.0); MEAN PLATELET VOLUME 7.5 fL (7.2-11.7); MONO % 8.7 % (0.0-10.0); NEUT % 62.6 % (50.0-75.0); NRBC % 0.3 % (0.0-2.0); RBC 2.78 Mil/uL (3.80-5.20); RED CELL DISTRIBUTION WIDTH 16.4 % (11.5-14.5); WHITE BLOOD COUNT 11.1 K/uL (4.8-10.8)
[2018-06-03 07:34] LABS: BLOOD UREA NITROGEN 10 mg/dL (7-17); GFR NON-AFRICAN AMERICAN > 60
[2018-06-03 07:35] LABS: ALB/GLOB RATIO 0.9 (1.0-2.1); ALBUMIN 2.7 g/dL (3.5-5.0); ALT/SGPT 27 U/L (9-52); AST/SGOT 15 U/L (14-36); HDL CHOLESTEROL 23 mg/dL (30-70); LDL CHOLESTEROL < 30 mg/dL (0-129)
[2018-06-03] MEDS: Enoxaparin 40 mg Syringe SC SCH (10:01)
[2018-06-03] MEDS: Lactobacillus Acidophilus 500 MU Cap PEG SCH ×2 (10:01→18:30)
[2018-06-03] MEDS: Cholestyramine 4 gm/Pkt UD PO SCH ×2 (10:18→18:30)
[2018-06-03] MEDS: Nystatin 100,000 Units/gm Cream(15 gm) TOP SCH ×3 (10:20→18:54)
--- NOTE | 2018-06-03 10:23 | CP.PCM.PN ---
<Maggie Dailey - Last Filed: 06/03/18 10:27> Subjective - Date & Time of Evaluation Date of Evaluation: 06/03/18 Time of Evaluation: 07:00 - Subjective Subjective: GENERAL SURGERY PROGRESS NOTE FOR DR. TIAN Patient seen and examined at bedside. She continues to have drainage from midline wound. She complains of not getting enough pain medicine as frequently as she would like. She is threatening to AMA if she does not get her surgery today and states that she wants to leave. 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 In order to ensure the best chance of a good outcome, it is better to do the surgery when she is nutritionally optimized. Objective - Vital Signs/Intake and Output Vital Signs (last 24 hours): Temp Pulse Resp BP Pulse Ox 98.0 F 120 H 18 120/82 98 06/03/18 07:00 06/03/18 07:35 06/03/18 07:00 06/03/18 07:00 06/03/18 07:00 Intake and Output: 06/03/18 06/03/18 06:59 18:59 Intake Total 1560 Output Total 500 Balance 1060 - Medications Medications: Current Medications Acetaminophen (Tylenol 650mg/20.3ml Solution Ud) 975 mg GT Q8 [facility] Last Admin: 06/03/18 05:06 Dose: 975 mg Cholestyramine Resin (Questran) 4 gm PO BID [facility] Last Admin: 06/02/18 17:50 Dose: 4 gm Dextrose (Dextrose 50% Inj) 0 ml IV STAT PRN; Protocol PRN Reason: Hypoglycemia Protocol Last Admin: 05/16/18 23:40 Dose: 50 ml Dextrose (Glutose 15) 0 gm PO ONCE PRN; Protocol PRN Reason: Hypoglycemia Protocol Diphenhydramine HCl (Benadryl) 25 mg IVP HS PRN PRN Reason: Insomnia Last Admin: 06/02/18 22:27 Dose: 25 mg Enoxaparin Sodium (Lovenox) 40 mg SC DAILY [facility] Last Admin: 06/02/18 10:08 Dose: 40 mg Ergocalciferol (Drisdol 50,000 Intl Units Cap) 1 cap PO Q7D [facility] Stop: 07/20/18 10:31 Last Admin: 06/01/18 12:13 Dose: 1 cap Escitalopram Oxalate (Lexapro) 5 mg NG DAILY [facility] Last Admin: 06/02/18 10:09 Dose: 5 mg Glucagon (Glucagen Diagnostic Kit) 0 mg IM STAT PRN; Protocol PRN Reason: Hypoglycemia Protocol Hydrocortisone (Cortizone 1% Cream) 0 gm TOP TID PRN PRN Reason: Rash Hydromorphone HCl (Dilaudid) 1.5 mg IVP Q3 PRN PRN Reason: Pain, SEVERE (8-10) Last Admin: 06/03/18 06:49 Dose: 1.5 mg Metronidazole (Flagyl) 500 mg in 100 mls @ 100 mls/hr IVPB Q8H [facility]AT[facility]N PRN Reason: Protocol Last Admin: 06/03/18 04:00 Dose: 100 mls/hr Ciprofloxacin (Cipro 400mg/200ml Dsw) 400 mg in 200 mls @ 133 mls/hr IVPB Q12H [facility]N PRN Reason: Protocol Last Admin: 06/03/18 02:03 Dose: 133 mls/hr Insulin Human Regular (Novolin R) 0 unit SC Q6 [facility]N PRN Reason: Protocol Last Admin: 06/03/18 06:54 Dose: Not Given Ipratropium [place] (Atrovent) 0.5 mg IH RQ6 [facility] Last Admin: 06/03/18 08:26 Dose: 0.5 mg Lactobacillus Acidophilus (Bacid Acidophilus) 1 cap PEG BID [facility] Last Admin: 06/02/18 17:50 Dose: 1 cap Loperamide HCl (Imodium) 1 mg PO Q2H PRN PRN Reason: Diarrhea Last Admin: 06/03/18 04:57 Dose: 1 mg Lorazepam (Ativan) 1 mg IVP BID [facility] Last Admin: 06/02/18 18:59 Dose: 1 mg Metoprolol Tartrate (Lopressor) 5 mg IVP Q6H [facility] Last Admin: 06/03/18 03:53 Dose: 5 mg Nicotine (Nicoderm Cq) 1 patch TD DAILY [facility] Last Admin: 06/02/18 10:09 Dose: 1 patch Nystatin (Mycostatin Cream) 0 ea TOP TID [facility] Last Admin: 06/02/18 17:54 Dose: 1 dose Pantoprazole Sodium (Protonix Inj) 40 mg IVP DAILY [facility] Last Admin: 06/02/18 10:11 Dose: 40 mg Saliva Substitute (Mouth Kote 236 Ml) 0 ml MM Q6 PRN PRN Reason: Dry mouth Vitamin A (Vitamin A & D Oint Ud Foilpak) 1 ea TOP Q8 PRN PRN Reason: dry lips Last Admin: 05/20/18 11:10 Dose: 1 ea - Labs Labs: 06/03/18 06:54 06/03/18 06:54 PT 16.0 SECONDS (9.7-12.2) H 05/26/18 06:32 INR 1.5 05/26/18 06:32 APTT 33 SECONDS (21-34) 05/25/18 06:16 - Constitutional Appears: Non-toxic, No Acute Distress - Head Exam Head Exam: ATRAUMATIC, NORMAL INSPECTION - Eye Exam Eye Exam: EOMI, Normal appearance - Respiratory Exam Respiratory Exam: NORMAL BREATHING PATTERN. absent: Respiratory Distress - Cardiovascular Exam Cardiovascular Exam: Tachycardia - GI/Abdominal Exam GI & Abdominal Exam: Soft. absent: Distended, Firm, Guarding, Rigid, Tenderness , Rebound Additional comments: Midline incision with iodaform loosely packed in between sutures Drainage continues from midline wound G tube in place with tube feeds - Neurological Exam Neurological Exam: Alert, Awake, Oriented x3 - Psychiatric Exam Psychiatric exam: Agitated - Skin Skin Exam: Warm Assessment and Plan - Assessment and Plan (Free Text) Assessment: 38yo F with PMHx of [id number] gastric bypass in 2014, found to have bowel ischemia secondary to internal hernia. POD#20 s/p Exploratory laparotomy, Reduction of internal hernia, DANNI, Drainage of abdominal collections, temporary abdominal closure (fascia left open), EGD. POD#17 s/p Re-exploration, Small bowel resection of ileum, small bowel resection of Yenni limb including previous gastrojejunostomy, reversal of bypass , primary anastomosis of ileum-ileum, ileum-ileum, and ileum-jejunum, Gastrostomy tube in bypassed stomach, EGD - Continue tube feeds - Cx = enterococcus faecalis, acinetobacter baumannii - Continue Abx per ID - Packing removed and replaced and dressing changed on midline incision - Will return to OR to restore GI continuity once pt nutritionally optimized, some vitamin studies still pending - Will place wound vac due to continued drainage from midline wound - Discussed plan with Dr. Cricket Dailey PGY-4 <Gómez Harley - Last Filed: 06/06/18 15:36> Objective - Vital Signs/Intake and Output Vital Signs (last 24 hours): Temp Pulse Resp BP Pulse Ox 98.4 F 99 H 18 104/74 94 L 06/06/18 07:35 06/06/18 07:35 06/06/18 07:35 06/06/18 07:35 06/06/18 07:35 Intake and Output: 06/06/18 06/06/18 06:59 18:59 Intake Total 700 Output Total 360 Balance 340 - Medications Medications: Current Medications Acetaminophen (Tylenol 650mg/20.3ml Solution Ud) 975 mg GT Q8 [facility] Last Admin: 06/06/18 13:46 Dose: 975 mg Cholestyramine Resin (Questran) 4 gm PO BID [facility] Last Admin: 06/06/18 10:44 Dose: 4 gm Dextrose (Dextrose 50% Inj) 0 ml IV STAT PRN; Protocol PRN Reason: Hypoglycemia Protocol Last Admin: 05/16/18 23:40 Dose: 50 ml Dextrose (Glutose 15) 0 gm PO ONCE PRN; Protocol PRN Reason: Hypoglycemia Protocol Diphenhydramine HCl (Benadryl) 25 mg IVP HS PRN PRN Reason: Insomnia Last Admin: 06/05/18 22:25 Dose: 25 mg Enoxaparin Sodium (Lovenox) 40 mg SC DAILY [facility] Last Admin: 06/06/18 10:44 Dose: 40 mg Ergocalciferol (Drisdol 50,000 Intl Units Cap) 1 cap PO Q7D [facility] Stop: 07/20/18 10:31 Last Admin: 06/01/18 12:13 Dose: 1 cap Escitalopram Oxalate (Lexapro) 10 mg GT DAILY [facility] Last Admin: 06/06/18 10:44 Dose: 10 mg Glucagon (Glucagen Diagnostic Kit) 0 mg IM STAT PRN; Protocol PRN Reason: Hypoglycemia Protocol Hydrocortisone (Cortizone 1% Cream) 0 gm TOP TID PRN PRN Reason: Rash Hydromorphone HCl (Dilaudid) 1.5 mg IVP Q3 PRN PRN Reason: Pain, SEVERE (8-10) Last Admin: 06/06/18 13:43 Dose: 1.5 mg Metronidazole (Flagyl) 500 mg in 100 mls @ 100 mls/hr IVPB Q8H [facility]N PRN Reason: Protocol Last Admin: 06/06/18 12:45 Dose: 100 mls/hr Ciprofloxacin (Cipro 400mg/200ml Dsw) 400 mg in 200 mls @ 133 mls/hr IVPB Q12H [facility]N PRN Reason: Protocol Last Admin: 06/06/18 13:47 Dose: 133 mls/hr Insulin Human Regular (Novolin R) 0 unit SC Q6 [facility]N PRN Reason: Protocol Last Admin: 06/06/18 12:17 Dose: Not Given Ipratropium [place] (Atrovent) 0.5 mg IH RQ6 [facility] Last Admin: 06/06/18 13:10 Dose: Not Given Lactobacillus Acidophilus (Bacid Acidophilus) 1 cap PEG BID [facility] Last Admin: 06/06/18 10:44 Dose: 1 cap Loperamide HCl (Imodium) 1 mg PO Q2H PRN PRN Reason: Diarrhea Last Admin: 06/06/18 11:26 Dose: 1 mg Lorazepam (Ativan) 1 mg IVP BID [facility] Last Admin: 06/06/18 10:42 Dose: 1 mg Metoprolol Tartrate (Lopressor) 5 mg IVP Q6H [facility] Last Admin: 06/06/18 10:42 Dose: 5 mg Nicotine (Nicoderm Cq) 1 patch TD DAILY [facility] Last Admin: 06/06/18 10:44 Dose: 1 patch Nystatin (Mycostatin Cream) 0 ea TOP TID [facility] Last Admin: 06/06/18 14:58 Dose: Not Given Ondansetron HCl (Zofran Inj) 4 mg IVP Q6H PRN PRN Reason: Nausea/Vomiting Last Admin: 06/06/18 11:26 Dose: 4 mg Pantoprazole Sodium (Protonix Inj) 40 mg IVP DAILY [facility] Last Admin: 06/06/18 10:42 Dose: 40 mg Saliva Substitute (Mouth Kote 236 Ml) 0 ml MM Q6 PRN PRN Reason: Dry mouth Vitamin A (Vitamin A & D Oint Ud Foilpak) 1 ea TOP Q8 PRN PRN Reason: dry lips Last Admin: 05/20/18 11:10 Dose: 1 ea - Labs Labs: 06/05/18 07:44 06/05/18 07:44 PT 16.0 SECONDS (9.7-12.2) H 05/26/18 06:32 INR 1.5 05/26/18 06:32 APTT 33 SECONDS (21-34) 05/25/18 06:16 Attending/Attestation - Attestation I have fully participated in the care of the patient.: Yes I have reviewed all pertinent clinical information, including history, physical exam and plan: Yes Notes (Text): Pt is improving clinically C/w Tube feeds Reoperation after 3 weeks for Gastrogastric anastomosis c.w current mx Plan d.w pt and primary team in detail
[2018-06-03] MEDS: Magnesium Sulfate 1 gm in D5W 1 GM/100 ML BAG IVPB SCH ×2 (17:31→18:31)
--- NOTE | 2018-06-03 18:46 | CP.PCM.PN ---
Subjective - Date & Time of Evaluation Date of Evaluation: 06/03/18 Time of Evaluation: 15:00 - Subjective Subjective: dictated Objective - Vital Signs/Intake and Output Vital Signs (last 24 hours): Temp Pulse Resp BP Pulse Ox 98.4 F 112 H 20 109/75 98 06/03/18 17:07 06/03/18 17:07 06/03/18 17:07 06/03/18 17:07 06/03/18 17:07 Intake and Output: 06/03/18 06/03/18 06:59 18:59 Intake Total 1560 300 Output Total 500 1600 Balance 1060 -1300 - Medications Medications: Current Medications Acetaminophen (Tylenol 650mg/20.3ml Solution Ud) 975 mg GT Q8 [facility] Last Admin: 06/03/18 15:00 Dose: 975 mg Cholestyramine Resin (Questran) 4 gm PO BID [facility] Last Admin: 06/03/18 18:30 Dose: 4 gm Dextrose (Dextrose 50% Inj) 0 ml IV STAT PRN; Protocol PRN Reason: Hypoglycemia Protocol Last Admin: 05/16/18 23:40 Dose: 50 ml Dextrose (Glutose 15) 0 gm PO ONCE PRN; Protocol PRN Reason: Hypoglycemia Protocol Diphenhydramine HCl (Benadryl) 25 mg IVP HS PRN PRN Reason: Insomnia Last Admin: 06/02/18 22:27 Dose: 25 mg Enoxaparin Sodium (Lovenox) 40 mg SC DAILY [facility] Last Admin: 06/03/18 10:01 Dose: 40 mg Ergocalciferol (Drisdol 50,000 Intl Units Cap) 1 cap PO Q7D [facility] Stop: 07/20/18 10:31 Last Admin: 06/01/18 12:13 Dose: 1 cap Escitalopram Oxalate (Lexapro) 5 mg NG DAILY [facility] Last Admin: 06/03/18 10:01 Dose: 5 mg Glucagon (Glucagen Diagnostic Kit) 0 mg IM STAT PRN; Protocol PRN Reason: Hypoglycemia Protocol Hydrocortisone (Cortizone 1% Cream) 0 gm TOP TID PRN PRN Reason: Rash Hydromorphone HCl (Dilaudid) 1.5 mg IVP Q3 PRN PRN Reason: Pain, SEVERE (8-10) Last Admin: 06/03/18 16:07 Dose: 1.5 mg Metronidazole (Flagyl) 500 mg in 100 mls @ 100 mls/hr IVPB Q8H [facility] PRN Reason: Protocol Last Admin: 06/03/18 11:12 Dose: 100 mls/hr Ciprofloxacin (Cipro 400mg/200ml Dsw) 400 mg in 200 mls @ 133 mls/hr IVPB Q12H [facility]N PRN Reason: Protocol Last Admin: 06/03/18 13:34 Dose: 133 mls/hr Potassium Chloride (Potassium Chloride 20 Meq/100 Ml) 20 meq in 100 mls @ 50 mls/hr IVPB ONCE ONE Stop: 06/03/18 21:59 Insulin Human Regular (Novolin R) 0 unit SC Q6 [facility] PRN Reason: Protocol Last Admin: 06/03/18 17:41 Dose: Not Given Ipratropium [place] (Atrovent) 0.5 mg IH RQ6 [facility] Last Admin: 06/03/18 14:28 Dose: 0.5 mg Lactobacillus Acidophilus (Bacid Acidophilus) 1 cap PEG BID [facility] Last Admin: 06/03/18 18:30 Dose: 1 cap Loperamide HCl (Imodium) 1 mg PO Q2H PRN PRN Reason: Diarrhea Last Admin: 06/03/18 18:30 Dose: 1 mg Lorazepam (Ativan) 1 mg IVP BID [facility] Last Admin: 06/03/18 18:30 Dose: 1 mg Metoprolol Tartrate (Lopressor) 5 mg IVP Q6H [facility] Last Admin: 06/03/18 16:25 Dose: 5 mg Nicotine (Nicoderm Cq) 1 patch TD DAILY [facility] Last Admin: 06/03/18 10:02 Dose: 1 patch Nystatin (Mycostatin Cream) 0 ea TOP TID [facility] Last Admin: 06/03/18 13:04 Dose: 1 dose Pantoprazole Sodium (Protonix Inj) 40 mg IVP DAILY [facility] Last Admin: 06/03/18 10:02 Dose: 40 mg Saliva Substitute (Mouth Kote 236 Ml) 0 ml MM Q6 PRN PRN Reason: Dry mouth Vitamin A (Vitamin A & D Oint Ud Foilpak) 1 ea TOP Q8 PRN PRN Reason: dry lips Last Admin: 05/20/18 11:10 Dose: 1 ea - Labs Labs: 06/03/18 06:54 06/03/18 06:54 PT 16.0 SECONDS (9.7-12.2) H 05/26/18 06:32 INR 1.5 05/26/18 06:32 APTT 33 SECONDS (21-34) 05/25/18 06:16
[2018-06-03] MEDS: DiphenhydrAMINE 50 mg/ml Inj IVP PRN (22:06)
[2018-06-04] MEDS: (Novolin R) Insulin Human Regular 100 units/ml vial SC SCH ×5 (00:15→23:41)
[2018-06-04] MEDS: Ipratropium 0.02% Inhal Soln (0.5 mg/2.5 ml) UD IH SCH ×4 (01:13→19:54)
[2018-06-04] MEDS: Ciprofloxacin 400mg/200ml D5W 400 MG/200 ML BAG IVPB SCH ×2 (01:18→13:55)
--- NOTE | 2018-06-04 02:23 | PN ---
Copied To: Guero Rivera MD Attending MD: Guero Rivera MD DATE: 06/03/2018 SUBJECTIVE: The patient is afebrile. She was complaining of pain, and she wanted more medications and primary is looking into it. She remains tachycardic. Yesterday, we got a report that she has had Acinetobacter and Enterococcus in the abdominal wall which makes me to feel she is leaking from the bowel, I am not sure. PHYSICAL EXAMINATION: VITAL SIGNS: Blood pressure is 109/75, respirations are 20. GENERAL: She is alert and awake. They have removed the triple-lumen. She got a PICC line now. HEENT: Head is atraumatic, normocephalic. NECK: Supple. LUNGS: Clear. HEART: S1 and S2. Tachy. ABDOMEN: Remains with a midline wound which is draining, and they are going to put a wound VAC today, she says. EXTREMITIES: Have no edema. LABORATORY DATA: Labs are noted. Lab shows white count is 11.1, hemoglobin 8.1, hematocrit is 24.2, platelet count is 344. Sodium is 140, potassium is 3.4, chlorides are 110, carbon dioxide is 21, BUN is 10, creatinine is 0.4. Sodium is 143, potassium 5.9. Albumin is 2.7. ASSESSMENT AND PLAN: Her culture yesterday had Acinetobacter which is hospital acquired organism and has Enterococcus faecalis which is from the bowel. I want to make sure there is no leak. Surgery is following. It had moderate gram variable bacilli and few . Both were sensitive to Cipro, so I have added Cipro at this time. She is being isolated in a single room, so she is on Cipro antibiotics at this time. The patient was here with ischemic bowel. She has a bypass surgery in the past and is waiting for further definitive surgery to connect the loops of her bowel. Has a lot of serious organisms in the wound. We will follow. Guero Rivera MD
[2018-06-04] MEDS: metroNIDAZOLE IV 500 mg/100 ml 500 MG/100 ML BAG IVPB SCH ×3 (03:59→19:38)
[2018-06-04] MEDS: Metoprolol 1 mg/ml Inj IVP SCH ×4 (03:59→21:30)
--- NOTE | 2018-06-04 04:53 | CP.PCM.PN ---
<Yanelis Hudson - Last Filed: 06/04/18 06:35> Subjective - Date & Time of Evaluation Date of Evaluation: 06/04/18 Time of Evaluation: 05:30 - Subjective Subjective: PGY-1 Yanelis Hudson D.O. Medicine progress note: Patient is seen and examined this morning. She is not in acute distress. Wound vac was place don abdomen yesterday. Patient is still complaining of pain, but does not appear in any distress. She is calm but expressed significant frustration with still being in the hospital and not getting her follow-up surgery. Objective - Vital Signs/Intake and Output Vital Signs (last 24 hours): Temp Pulse Resp BP Pulse Ox 98.2 F 116 H 20 122/80 97 06/03/18 23:20 06/04/18 03:57 06/03/18 23:20 06/04/18 03:57 06/03/18 23:20 Intake and Output: 06/03/18 06/04/18 18:59 06:59 Intake Total 300 800 Output Total 1600 1200 Balance -1300 -400 - Medications Medications: Current Medications Acetaminophen (Tylenol 650mg/20.3ml Solution Ud) 975 mg GT Q8 [facility] Last Admin: 06/03/18 22:37 Dose: Not Given Cholestyramine Resin (Questran) 4 gm PO BID [facility] Last Admin: 06/03/18 18:30 Dose: 4 gm Dextrose (Dextrose 50% Inj) 0 ml IV STAT PRN; Protocol PRN Reason: Hypoglycemia Protocol Last Admin: 05/16/18 23:40 Dose: 50 ml Dextrose (Glutose 15) 0 gm PO ONCE PRN; Protocol PRN Reason: Hypoglycemia Protocol Diphenhydramine HCl (Benadryl) 25 mg IVP HS PRN PRN Reason: Insomnia Last Admin: 06/03/18 22:06 Dose: 25 mg Enoxaparin Sodium (Lovenox) 40 mg SC DAILY [facility] Last Admin: 06/03/18 10:01 Dose: 40 mg Ergocalciferol (Drisdol 50,000 Intl Units Cap) 1 cap PO Q7D [facility] Stop: 07/20/18 10:31 Last Admin: 06/01/18 12:13 Dose: 1 cap Escitalopram Oxalate (Lexapro) 5 mg NG DAILY [facility] Last Admin: 06/03/18 10:01 Dose: 5 mg Glucagon (Glucagen Diagnostic Kit) 0 mg IM STAT PRN; Protocol PRN Reason: Hypoglycemia Protocol Hydrocortisone (Cortizone 1% Cream) 0 gm TOP TID PRN PRN Reason: Rash Hydromorphone HCl (Dilaudid) 1.5 mg IVP Q3 PRN PRN Reason: Pain, SEVERE (8-10) Last Admin: 06/04/18 03:58 Dose: 1.5 mg Metronidazole (Flagyl) 500 mg in 100 mls @ 100 mls/hr IVPB Q8H [facility] PRN Reason: Protocol Last Admin: 06/04/18 03:59 Dose: 100 mls/hr Ciprofloxacin (Cipro 400mg/200ml Dsw) 400 mg in 200 mls @ 133 mls/hr IVPB Q12H [facility] PRN Reason: Protocol Last Admin: 06/04/18 01:18 Dose: 133 mls/hr Insulin Human Regular (Novolin R) 0 unit SC Q6 [facility] PRN Reason: Protocol Last Admin: 06/04/18 00:15 Dose: Not Given Ipratropium [place] (Atrovent) 0.5 mg IH RQ6 [facility] Last Admin: 06/04/18 01:13 Dose: Not Given Lactobacillus Acidophilus (Bacid Acidophilus) 1 cap PEG BID [facility] Last Admin: 06/03/18 18:30 Dose: 1 cap Loperamide HCl (Imodium) 1 mg PO Q2H PRN PRN Reason: Diarrhea Last Admin: 06/03/18 18:30 Dose: 1 mg Lorazepam (Ativan) 1 mg IVP BID [facility] Last Admin: 06/03/18 18:30 Dose: 1 mg Metoprolol Tartrate (Lopressor) 5 mg IVP Q6H [facility] Last Admin: 06/04/18 03:59 Dose: 5 mg Nicotine (Nicoderm Cq) 1 patch TD DAILY [facility] Last Admin: 06/03/18 10:02 Dose: 1 patch Nystatin (Mycostatin Cream) 0 ea TOP TID [facility] Last Admin: 06/03/18 18:54 Dose: 1 dose Pantoprazole Sodium (Protonix Inj) 40 mg IVP DAILY [facility] Last Admin: 06/03/18 10:02 Dose: 40 mg Saliva Substitute (Mouth Kote 236 Ml) 0 ml MM Q6 PRN PRN Reason: Dry mouth Vitamin A (Vitamin A & D Oint Ud Foilpak) 1 ea TOP Q8 PRN PRN Reason: dry lips Last Admin: 05/20/18 11:10 Dose: 1 ea - Labs Labs: 06/03/18 06:54 06/03/18 06:54 PT 16.0 SECONDS (9.7-12.2) H 05/26/18 06:32 INR 1.5 05/26/18 06:32 APTT 33 SECONDS (21-34) 05/25/18 06:16 - Constitutional Appears: Non-toxic, No Acute Distress - Head Exam Head Exam: ATRAUMATIC, NORMAL INSPECTION, NORMOCEPHALIC - Eye Exam Eye Exam: EOMI, Normal appearance - ENT Exam ENT Exam: Mucous Membranes Moist, Normal Exam - Neck Exam Neck Exam: Normal Inspection - Respiratory Exam Respiratory Exam: Clear to Ausculation Bilateral, NORMAL BREATHING PATTERN - Cardiovascular Exam Cardiovascular Exam: REGULAR RHYTHM, +S1, +S2 - GI/Abdominal Exam Additional comments: wound vac - Rectal Exam Rectal Exam: Deferred - Extremities Exam Extremities Exam: Normal Capillary Refill, Normal Inspection. absent: Pedal Edema - Back Exam Back Exam: NORMAL INSPECTION - Neurological Exam Neurological Exam: Alert, Awake, CN II-XII Intact, Oriented x3 - Psychiatric Exam Psychiatric exam: Anxious - Skin Skin Exam: Dry, Intact, Normal Color, Warm Assessment and Plan - Assessment and Plan (Free Text) Assessment: Patient is a 37 yo female with a history of gastric bypass in 2013 who presented with severe abdominal pain. She was found to have bowel ischemia 2/2 internal hernia. Patient underwent ex lap on 05/14 and again on 05/16. She will need a repeat surgery 4-6 weeks from the first. She currently has an NGT and is utilizing a G tube for nutrition/meds. Plan: Patient place din isolated room 06/03/18. Wound vac placed 06/03/18. PICC line in R arm. Blood work now every other day. Measure vitamin levels and replace as needed - Vit D <12.8- vit D 50,000 units q1wk x8 wks - Prealbumin 18.1 - B12 707 - Folate 12.6 - F/u A, B1, B6, E Ischemic bowel disease- 2/2 to internal hernias producing bowel obstruction - Pre-op CT A/P (05/13/18): Writhing appearance of mesenteric vessels. Mesenteric edema. No evidence of bowel obstruction. Whirling appearance of mesenteric vessels is nonspecific. Prominent mesenteric lymph nodes. Mesenteric edema. - Lactate: 3.6 (pre-op)-->2.4 (post-op)-->0.9 - Initially stool occult blood positive- patient denies bloody BMs presently , Hgb stable - Patient required emergent surgical intervention on 05/14/18 and transferred to ICU. Patient had a second surgery on 05/16/18. - Per operative note (05/14/18): Diagnostic laparoscopy, Exploratory laparotomy, Reduction of internal hernia, Lysis of adhesions, Drainage of abdominal collections, temporary abdominal closure, EGD. Ischemia of yenni limb, internal hernia. Naveed drain stitched to distal common limb - Per operative note (05/16/18): Re-exploration, Small bowel resection of ileum, small bowel resection of Yenni limb with gastrojejunostomy, reversal of bypass, primary anastomosis of ileum-ileum, ileum-ileum, and ileum- jejunum, Gastrostomy tube in bypassed stomach, EGD - Will need f/u surgery in 4-6 weeks from original surgery date (05/14) to restore GI - GI series w/ small bowel (05/24/18): no evidence of postsurgical leak - Current drains include: NGT, gastrostomy tube- temporary Srivastava in place after G-tube "fell out" on 05/30 - Cultures: Peritoneal Fluid (05/14/18): Pseudomonas Aeruginosa sensitive to Meropenem Wound Culture (05/23/18): Yudith albicans Blood culture (05/15/18, 05/22/18): no growth Urine culture (05/22/18): no growth - F/u wound Cx from incision site 05/31: Enterococcus faecalis, Acinetobacter baumannii - Start Cipro 400 mg IV q12hrs (started 06/02) - Discontinued Meropenem 1 gm IVPB Q8H (active since 05/15/18-05/27/18) - Flagyl 500mg IVPB Q8H (active since 05/15/18) - Nystatin cream TID for G-tube site (Yudith) - Tylenol 975 mg liq q8hrs - Dilaudid 1.5 mg IV q3hrs PRN - Surgery consulted (Dr. Harley) - GI consulted (Dr. Alvarado) - ID consulted (Dr. Rivera)- d/c abx, continue Diflucan - PT consulted- working with patient, current rec TCU following discharge Tachycardia, persistent (110s-130s)- possibly etiologies include pain, infection , anxiety - She is being treated for Left G Tube fluid infection. She has been started on Ativan PRN. She has Dilaudid on board to be used PRN. - Metoprolol tartrate 5 mg IV q6hrs with holding parameters (SBP <100, HR <60 ) Leukocytosis, improved (8.9)- likely 2/2 to ischemic bowel 2/2 to small bowel obstruction and surgeries - Procalcitonin: 0.44 - Cultures: Peritoneal Fluid (05/14/18): Pseudomonas Aeruginosa sensitive to Meropenem Wound Culture (05/23/18): Yudith albicans Blood culture (05/15/18, 05/22/18): no growth Urine culture (05/22/18): no growth - Wound Cx from incision site 05/31: Enterococcus faecalis, Acinetobacter baumannii - Monitor CBC QOD Diarrhea, acute, improving- suspect 2/2 PO intake by pt - C. Diff (05/22, 05/24, 05/28): negative - Stool O&P (05/25/18): negative - Stool leukocytes (05/25/18): negative Anxiety - Patient was taking Xanax for anxiety noted in prior note - Ativan 1 mg IV BID - Lexapro 5 mg PO daily (started 05/31) - Lumber Estimator consulted- pt initially refused but then accepted - Psychiatry consulted (Dr. Reyez)- managing Ativan Anemia, acute, stable (Hgb 7.9)- pt denies blood in stool - Patient received a total of 2 PRBC and 4 FFP - Iron 16, TIBC 205, % sat 4.7, ferritin 75.3 - Monitor CBC QOD Thombocytosis, improving (504)- suspect reactive to pain, surgery - Monitor CBC QOD T2DM, controlled - From prior note: Admittedly non-compliant, has not taken Januvia for one year - Accuchecks q6hrs - Hypoglycemic protocol - ISS regular - HbA1c 5.8 - History of gastric bypass surgery Hypercholesterolemia- untreated - LDL 38, HDL 14, Chol 104, TG 226 - History of gastric bypass surgery - F/u lipid panel 06/03 Hx of HTN, controlled- since gastric bypass has not taken meds - Metoprolol 5 mg IV q6hrs Hx of Obesity, resolved - s/p gastric bypass surgery in 2013 Hx of Asthma- patient not in acute exacerbation - Atrovent q6hrs Nicotine use disorder - From prior note: 1ppd x 20 yrs, 1/2 ppd x 3 yrs - Nicoderm 1 patch TD QD Hydrocortisone 1% Cream topical TID for Right Upper Inner Arm macular rash- improved Vitamin A&D topical q8hrs PRN for dry lips Saliva substitute q6hrs PRN for dry mouth IVF: not indicated VTE ppx: Lovenox 40 mg SC daily, SCDs GI ppx: Protonix 40 mg IV BID, Florastor BID Diet: feeds via gastrostomy (temporary Srivastava in place)- managed by surgery Code status: full code Dispo: awaiting follow-up surgery and surgical team's recs <Franki Denise - Last Filed: 06/04/18 14:06> Objective - Vital Signs/Intake and Output Vital Signs (last 24 hours): Temp Pulse Resp BP Pulse Ox 98.3 F 110 H 20 119/80 96 06/04/18 07:26 06/04/18 12:04 06/04/18 07:26 06/04/18 07:26 06/04/18 07:26 Intake and Output: 06/04/18 06/04/18 06:59 18:59 Intake Total 800 Output Total 1200 Balance -400 - Medications Medications: Current Medications Acetaminophen (Tylenol 650mg/20.3ml Solution Ud) 975 mg GT Q8 [facility] Last Admin: 06/04/18 13:54 Dose: 975 mg Cholestyramine Resin (Questran) 4 gm PO BID [facility] Last Admin: 06/04/18 10:22 Dose: 4 gm Dextrose (Dextrose 50% Inj) 0 ml IV STAT PRN; Protocol PRN Reason: Hypoglycemia Protocol Last Admin: 05/16/18 23:40 Dose: 50 ml Dextrose (Glutose 15) 0 gm PO ONCE PRN; Protocol PRN Reason: Hypoglycemia Protocol Diphenhydramine HCl (Benadryl) 25 mg IVP HS PRN PRN Reason: Insomnia Last Admin: 06/03/18 22:06 Dose: 25 mg Enoxaparin Sodium (Lovenox) 40 mg SC DAILY [facility] Last Admin: 06/04/18 10:22 Dose: 40 mg Ergocalciferol (Drisdol 50,000 Intl Units Cap) 1 cap PO Q7D [facility] Stop: 07/20/18 10:31 Last Admin: 06/01/18 12:13 Dose: 1 cap Escitalopram Oxalate (Lexapro) 5 mg NG DAILY [facility] Last Admin: 06/04/18 10:22 Dose: 5 mg Glucagon (Glucagen Diagnostic Kit) 0 mg IM STAT PRN; Protocol PRN Reason: Hypoglycemia Protocol Hydrocortisone (Cortizone 1% Cream) 0 gm TOP TID PRN PRN Reason: Rash Hydromorphone HCl (Dilaudid) 1.5 mg IVP Q3 PRN PRN Reason: Pain, SEVERE (8-10) Last Admin: 06/04/18 13:37 Dose: 1.5 mg Metronidazole (Flagyl) 500 mg in 100 mls @ 100 mls/hr IVPB Q8H [facility] PRN Reason: Protocol Last Admin: 06/04/18 11:54 Dose: 100 mls/hr Ciprofloxacin (Cipro 400mg/200ml Dsw) 400 mg in 200 mls @ 133 mls/hr IVPB Q12H [facility] PRN Reason: Protocol Last Admin: 06/04/18 13:55 Dose: 133 mls/hr Insulin Human Regular (Novolin R) 0 unit SC Q6 [facility] PRN Reason: Protocol Last Admin: 06/04/18 12:16 Dose: Not Given Ipratropium [place] (Atrovent) 0.5 mg IH RQ6 [facility] Last Admin: 06/04/18 13:22 Dose: Not Given Lactobacillus Acidophilus (Bacid Acidophilus) 1 cap PEG BID [facility] Last Admin: 06/04/18 10:20 Dose: 1 cap Loperamide HCl (Imodium) 1 mg PO Q2H PRN PRN Reason: Diarrhea Last Admin: 06/03/18 18:30 Dose: 1 mg Lorazepam (Ativan) 1 mg IVP BID [facility] Last Admin: 06/04/18 10:20 Dose: 1 mg Metoprolol Tartrate (Lopressor) 5 mg IVP Q6H [facility] Last Admin: 06/04/18 10:21 Dose: 5 mg Nicotine (Nicoderm Cq) 1 patch TD DAILY [facility] Last Admin: 06/04/18 10:21 Dose: 1 patch Nystatin (Mycostatin Cream) 0 ea TOP TID [facility] Last Admin: 06/04/18 13:55 Dose: 1 dose Ondansetron HCl (Zofran Inj) 4 mg IVP Q6H PRN PRN Reason: Nausea/Vomiting Last Admin: 06/04/18 10:20 Dose: 4 mg Pantoprazole Sodium (Protonix Inj) 40 mg IVP DAILY [facility] Last Admin: 06/04/18 10:21 Dose: 40 mg Saliva Substitute (Mouth Kote 236 Ml) 0 ml MM Q6 PRN PRN Reason: Dry mouth Vitamin A (Vitamin A & D Oint Ud Foilpak) 1 ea TOP Q8 PRN PRN Reason: dry lips Last Admin: 05/20/18 11:10 Dose: 1 ea - Labs Labs: 06/03/18 06:54 06/03/18 06:54 PT 16.0 SECONDS (9.7-12.2) H 05/26/18 06:32 INR 1.5 05/26/18 06:32 APTT 33 SECONDS (21-34) 05/25/18 06:16 Attending/Attestation - Attestation I have personally seen and examined this patient.: Yes I have fully participated in the care of the patient.: Yes I have reviewed all pertinent clinical information, including history, physical exam and plan: Yes Notes (Text): 06/04/18 14:04 Patient was seen and examined at 9:00 AM. Continues to ask me to increase her Dilaudid and again I explained to her that we would not be doing so. Please note that the patient continues to not be any form of distress during my exam Awaiting surgery Franki Denise D.O.
[2018-06-04] MEDS: Acetaminophen 650mg/20.3ml solution UD GT SCH ×4 (07:45→21:19)
[2018-06-04] MEDS: Lactobacillus Acidophilus 500 MU Cap PEG SCH ×2 (10:20→18:12)
[2018-06-04] MEDS: Enoxaparin 40 mg Syringe SC SCH (10:22)
[2018-06-04] MEDS: Nystatin 100,000 Units/gm Cream(15 gm) TOP SCH ×3 (10:22→18:13)
[2018-06-04] MEDS: Cholestyramine 4 gm/Pkt UD PO SCH ×2 (10:22→18:12)
--- NOTE | 2018-06-04 10:56 | CP.PCM.PN ---
<Maggie Dailey - Last Filed: 06/04/18 10:59> Subjective - Date & Time of Evaluation Date of Evaluation: 06/04/18 Time of Evaluation: 07:00 - Subjective Subjective: GENERAL SURGERY PROGRESS NOTE FOR DR. TIAN Patient seen and examined at bedside. She states that her diarrhea has improved and she only had 1 BM last night. Denies nausea or vomiting. Wound vac was placed yesterday over midline wound due to increased drainage. Objective - Vital Signs/Intake and Output Vital Signs (last 24 hours): Temp Pulse Resp BP Pulse Ox 98.3 F 109 H 20 119/80 96 06/04/18 07:26 06/04/18 07:28 06/04/18 07:26 06/04/18 07:26 06/04/18 07:26 Intake and Output: 06/04/18 06/04/18 06:59 18:59 Intake Total 800 Output Total 1200 Balance -400 - Medications Medications: Current Medications Acetaminophen (Tylenol 650mg/20.3ml Solution Ud) 975 mg GT Q8 [facility] Last Admin: 06/04/18 08:13 Dose: 975 mg Cholestyramine Resin (Questran) 4 gm PO BID [facility] Last Admin: 06/04/18 10:22 Dose: 4 gm Dextrose (Dextrose 50% Inj) 0 ml IV STAT PRN; Protocol PRN Reason: Hypoglycemia Protocol Last Admin: 05/16/18 23:40 Dose: 50 ml Dextrose (Glutose 15) 0 gm PO ONCE PRN; Protocol PRN Reason: Hypoglycemia Protocol Diphenhydramine HCl (Benadryl) 25 mg IVP HS PRN PRN Reason: Insomnia Last Admin: 06/03/18 22:06 Dose: 25 mg Enoxaparin Sodium (Lovenox) 40 mg SC DAILY [facility] Last Admin: 06/04/18 10:22 Dose: 40 mg Ergocalciferol (Drisdol 50,000 Intl Units Cap) 1 cap PO Q7D [facility] Stop: 07/20/18 10:31 Last Admin: 06/01/18 12:13 Dose: 1 cap Escitalopram Oxalate (Lexapro) 5 mg NG DAILY [facility] Last Admin: 06/04/18 10:22 Dose: 5 mg Glucagon (Glucagen Diagnostic Kit) 0 mg IM STAT PRN; Protocol PRN Reason: Hypoglycemia Protocol Hydrocortisone (Cortizone 1% Cream) 0 gm TOP TID PRN PRN Reason: Rash Hydromorphone HCl (Dilaudid) 1.5 mg IVP Q3 PRN PRN Reason: Pain, SEVERE (8-10) Last Admin: 06/04/18 10:11 Dose: 1.5 mg Metronidazole (Flagyl) 500 mg in 100 mls @ 100 mls/hr IVPB Q8H [facility] PRN Reason: Protocol Last Admin: 06/04/18 03:59 Dose: 100 mls/hr Ciprofloxacin (Cipro 400mg/200ml Dsw) 400 mg in 200 mls @ 133 mls/hr IVPB Q12H [facility] PRN Reason: Protocol Last Admin: 06/04/18 01:18 Dose: 133 mls/hr Insulin Human Regular (Novolin R) 0 unit SC Q6 [facility] PRN Reason: Protocol Last Admin: 06/04/18 07:38 Dose: Not Given Ipratropium [place]cova (Atrovent) 0.5 mg IH RQ6 [facility] Last Admin: 06/04/18 07:38 Dose: 0.5 mg Lactobacillus Acidophilus (Bacid Acidophilus) 1 cap PEG BID [facility] Last Admin: 06/04/18 10:20 Dose: 1 cap Loperamide HCl (Imodium) 1 mg PO Q2H PRN PRN Reason: Diarrhea Last Admin: 06/03/18 18:30 Dose: 1 mg Lorazepam (Ativan) 1 mg IVP BID [facility] Last Admin: 06/04/18 10:20 Dose: 1 mg Metoprolol Tartrate (Lopressor) 5 mg IVP Q6H [facility] Last Admin: 06/04/18 10:21 Dose: 5 mg Nicotine (Nicoderm Cq) 1 patch TD DAILY [facility] Last Admin: 06/04/18 10:21 Dose: 1 patch Nystatin (Mycostatin Cream) 0 ea TOP TID [facility] Last Admin: 06/04/18 10:22 Dose: 1 dose Ondansetron HCl (Zofran Inj) 4 mg IVP Q6H PRN PRN Reason: Nausea/Vomiting Last Admin: 06/04/18 10:20 Dose: 4 mg Pantoprazole Sodium (Protonix Inj) 40 mg IVP DAILY [facility] Last Admin: 06/04/18 10:21 Dose: 40 mg Saliva Substitute (Mouth Kote 236 Ml) 0 ml MM Q6 PRN PRN Reason: Dry mouth Vitamin A (Vitamin A & D Oint Ud Foilpak) 1 ea TOP Q8 PRN PRN Reason: dry lips Last Admin: 05/20/18 11:10 Dose: 1 ea - Labs Labs: 06/03/18 06:54 06/03/18 06:54 PT 16.0 SECONDS (9.7-12.2) H 05/26/18 06:32 INR 1.5 05/26/18 06:32 APTT 33 SECONDS (21-34) 05/25/18 06:16 - Constitutional Appears: Non-toxic, No Acute Distress - Head Exam Head Exam: ATRAUMATIC, NORMAL INSPECTION - Eye Exam Eye Exam: EOMI, Normal appearance - ENT Exam Additional comments: NG tube in place - Respiratory Exam Respiratory Exam: NORMAL BREATHING PATTERN. absent: Respiratory Distress - Cardiovascular Exam Cardiovascular Exam: Tachycardia - GI/Abdominal Exam GI & Abdominal Exam: Soft. absent: Distended, Firm, Guarding, Rigid, Tenderness , Rebound Additional comments: Wound vac in place on 125mmHg, no leak - Neurological Exam Neurological Exam: Alert, CN II-XII Intact, Oriented x3 - Psychiatric Exam Psychiatric exam: Normal Affect, Normal Mood Assessment and Plan - Assessment and Plan (Free Text) Assessment: 38yo F with PMHx of yenni-en-Y gastric bypass in 2014, found to have bowel ischemia secondary to internal hernia. POD#21 s/p Exploratory laparotomy, Reduction of internal hernia, DANNI, Drainage of abdominal collections, temporary abdominal closure (fascia left open), EGD. POD#18 s/p Re-exploration, Small bowel resection of ileum, small bowel resection of Yenni limb including previous gastrojejunostomy, reversal of bypass , primary anastomosis of ileum-ileum, ileum-ileum, and ileum-jejunum, Gastrostomy tube in bypassed stomach, EGD - Continue tube feeds - Cx = enterococcus faecalis, acinetobacter baumannii - Continue Abx per ID - Wound vac placed due to increased drainage from midline wound, possible fistula - Will return to OR to restore GI continuity once pt nutritionally optimized, some vitamin studies still pending - Discussed plan with Dr. Cricket Dailey PGY-4 <Gómez Harley - Last Filed: 06/06/18 15:51> Objective - Vital Signs/Intake and Output Vital Signs (last 24 hours): Temp Pulse Resp BP Pulse Ox 98.4 F 99 H 18 104/74 94 L 06/06/18 07:35 06/06/18 07:35 06/06/18 07:35 06/06/18 07:35 06/06/18 07:35 Intake and Output: 06/06/18 06/06/18 06:59 18:59 Intake Total 700 Output Total 360 Balance 340 - Medications Medications: Current Medications Acetaminophen (Tylenol 650mg/20.3ml Solution Ud) 975 mg GT Q8 [facility] Last Admin: 06/06/18 13:46 Dose: 975 mg Cholestyramine Resin (Questran) 4 gm PO BID [facility] Last Admin: 06/06/18 10:44 Dose: 4 gm Dextrose (Dextrose 50% Inj) 0 ml IV STAT PRN; Protocol PRN Reason: Hypoglycemia Protocol Last Admin: 05/16/18 23:40 Dose: 50 ml Dextrose (Glutose 15) 0 gm PO ONCE PRN; Protocol PRN Reason: Hypoglycemia Protocol Diphenhydramine HCl (Benadryl) 25 mg IVP HS PRN PRN Reason: Insomnia Last Admin: 06/05/18 22:25 Dose: 25 mg Enoxaparin Sodium (Lovenox) 40 mg SC DAILY [facility] Last Admin: 06/06/18 10:44 Dose: 40 mg Ergocalciferol (Drisdol 50,000 Intl Units Cap) 1 cap PO Q7D [facility] Stop: 07/20/18 10:31 Last Admin: 06/01/18 12:13 Dose: 1 cap Escitalopram Oxalate (Lexapro) 10 mg GT DAILY [facility] Last Admin: 06/06/18 10:44 Dose: 10 mg Glucagon (Glucagen Diagnostic Kit) 0 mg IM STAT PRN; Protocol PRN Reason: Hypoglycemia Protocol Hydrocortisone (Cortizone 1% Cream) 0 gm TOP TID PRN PRN Reason: Rash Hydromorphone HCl (Dilaudid) 1.5 mg IVP Q3 PRN PRN Reason: Pain, SEVERE (8-10) Last Admin: 06/06/18 13:43 Dose: 1.5 mg Metronidazole (Flagyl) 500 mg in 100 mls @ 100 mls/hr IVPB Q8H [facility] PRN Reason: Protocol Last Admin: 06/06/18 12:45 Dose: 100 mls/hr Ciprofloxacin (Cipro 400mg/200ml Dsw) 400 mg in 200 mls @ 133 mls/hr IVPB Q12H [facility] PRN Reason: Protocol Last Admin: 06/06/18 13:47 Dose: 133 mls/hr Insulin Human Regular (Novolin R) 0 unit SC Q6 [facility] PRN Reason: Protocol Last Admin: 06/06/18 12:17 Dose: Not Given Ipratropium Alcova (Atrovent) 0.5 mg IH RQ6 [facility] Last Admin: 06/06/18 13:10 Dose: Not Given Lactobacillus Acidophilus (Bacid Acidophilus) 1 cap PEG BID [facility] Last Admin: 06/06/18 10:44 Dose: 1 cap Loperamide HCl (Imodium) 1 mg PO Q2H PRN PRN Reason: Diarrhea Last Admin: 06/06/18 11:26 Dose: 1 mg Lorazepam (Ativan) 1 mg IVP BID [facility] Last Admin: 06/06/18 10:42 Dose: 1 mg Metoprolol Tartrate (Lopressor) 5 mg IVP Q6H [facility] Last Admin: 06/06/18 10:42 Dose: 5 mg Nicotine (Nicoderm Cq) 1 patch TD DAILY [facility] Last Admin: 06/06/18 10:44 Dose: 1 patch Nystatin (Mycostatin Cream) 0 ea TOP TID [facility] Last Admin: 06/06/18 14:58 Dose: Not Given Ondansetron HCl (Zofran Inj) 4 mg IVP Q6H PRN PRN Reason: Nausea/Vomiting Last Admin: 06/06/18 11:26 Dose: 4 mg Pantoprazole Sodium (Protonix Inj) 40 mg IVP DAILY [facility] Last Admin: 06/06/18 10:42 Dose: 40 mg Saliva Substitute (Mouth Kote 236 Ml) 0 ml MM Q6 PRN PRN Reason: Dry mouth Vitamin A (Vitamin A & D Oint Ud Foilpak) 1 ea TOP Q8 PRN PRN Reason: dry lips Last Admin: 05/20/18 11:10 Dose: 1 ea - Labs Labs: 06/05/18 07:44 06/05/18 07:44 PT 16.0 SECONDS (9.7-12.2) H 05/26/18 06:32 INR 1.5 05/26/18 06:32 APTT 33 SECONDS (21-34) 05/25/18 06:16 Attending/Attestation - Attestation I have personally seen and examined this patient.: Yes I have fully participated in the care of the patient.: Yes I have reviewed all pertinent clinical information, including history, physical exam and plan: Yes Notes (Text): Pt was seen and examined at bedside Agree with above note and assessment Pt is improving clinically C/w wound vac on midline wound c.w current mx Plan d.w pt and primary team in detail
[2018-06-04] MEDS ORDERED: Potassium Phosphate 15 MMOLE in Sodium Chloride 0.9% 250 ML IV ONE (12:03)
[2018-06-04] MEDS ORDERED: Magnesium Oxide 400 mg Tab UD PO SCH (18:00)
[2018-06-04] MEDS: DiphenhydrAMINE 50 mg/ml Inj IVP PRN (21:20)
[2018-06-04] MEDS: Loperamide Hydrochloride 1 mg/5 ml Cup PO PRN (21:22)
--- NOTE | 2018-06-05 00:26 | CP.PCM.PN ---
<Yanelis Hudson - Last Filed: 06/05/18 05:36> Subjective - Date & Time of Evaluation Date of Evaluation: 06/05/18 Time of Evaluation: 06:10 - Subjective Subjective: PGY-1 Yanelis Hudson D.O. Medicine progress note: Patient is seen and examined. She is lying comfortably in bed. She states she is feeling a little better. She complains that her wound vac is leaking slightly. She asks for Dilaudid because she states she is "due" for her pain meds. NGT still with elevated drainage- patient adamantly denies drinking/ eating. She reports her diarrhea has improved. Objective - Vital Signs/Intake and Output Vital Signs (last 24 hours): Temp Pulse Resp BP Pulse Ox 97.9 F 116 H 20 108/74 97 06/04/18 15:00 06/04/18 21:33 06/04/18 15:00 06/04/18 21:33 06/04/18 15:00 Intake and Output: 06/04/18 06/05/18 18:59 06:59 Intake Total 350 500 Output Total 600 1901 Balance -250 -1401 - Medications Medications: Current Medications Acetaminophen (Tylenol 650mg/20.3ml Solution Ud) 975 mg GT Q8 [facility] Last Admin: 06/04/18 21:19 Dose: 975 mg Cholestyramine Resin (Questran) 4 gm PO BID [facility] [place] Last Admin: 06/04/18 18:12 Dose: 4 gm Dextrose (Dextrose 50% Inj) 0 ml IV STAT PRN; Protocol PRN Reason: Hypoglycemia Protocol Last Admin: 05/16/18 23:40 Dose: 50 ml Dextrose (Glutose 15) 0 gm PO ONCE PRN; Protocol PRN Reason: Hypoglycemia Protocol Diphenhydramine HCl (Benadryl) 25 mg IVP HS PRN PRN Reason: Insomnia Last Admin: 06/04/18 21:20 Dose: 25 mg Enoxaparin Sodium (Lovenox) 40 mg SC DAILY [facility] [place] Last Admin: 06/04/18 10:22 Dose: 40 mg Ergocalciferol (Drisdol 50,000 Intl Units Cap) 1 cap PO Q7D [facility] Stop: 07/20/18 10:31 Last Admin: 06/01/18 12:13 Dose: 1 cap Escitalopram Oxalate (Lexapro) 5 mg NG DAILY [facility] [place] Last Admin: 06/04/18 10:22 Dose: 5 mg Glucagon (Glucagen Diagnostic Kit) 0 mg IM STAT PRN; Protocol PRN Reason: Hypoglycemia Protocol Hydrocortisone (Cortizone 1% Cream) 0 gm TOP TID PRN PRN Reason: Rash Hydromorphone HCl (Dilaudid) 1.5 mg IVP Q3 PRN PRN Reason: Pain, SEVERE (8-10) Last Admin: 06/04/18 22:32 Dose: 1.5 mg Metronidazole (Flagyl) 500 mg in 100 mls @ 100 mls/hr IVPB Q8H [facility] PRN Reason: Protocol Last Admin: 06/04/18 19:38 Dose: 100 mls/hr Ciprofloxacin (Cipro 400mg/200ml Dsw) 400 mg in 200 mls @ 133 mls/hr IVPB Q12H [facility] PRN Reason: Protocol Last Admin: 06/04/18 13:55 Dose: 133 mls/hr Insulin Human Regular (Novolin R) 0 unit SC Q6 [facility] PRN Reason: Protocol Last Admin: 06/04/18 23:41 Dose: Not Given Ipratropium Darby (Atrovent) 0.5 mg IH RQ6 [facility] Last Admin: 06/04/18 19:54 Dose: 0.5 mg Lactobacillus Acidophilus (Bacid Acidophilus) 1 cap PEG BID [facility] Last Admin: 06/04/18 18:12 Dose: 1 cap Loperamide HCl (Imodium) 1 mg PO Q2H PRN PRN Reason: Diarrhea Last Admin: 06/04/18 21:22 Dose: 1 mg Lorazepam (Ativan) 1 mg IVP BID [facility] Last Admin: 06/04/18 18:13 Dose: 1 mg Metoprolol Tartrate (Lopressor) 5 mg IVP Q6H [facility] Last Admin: 06/04/18 21:30 Dose: 5 mg Nicotine (Nicoderm Cq) 1 patch TD DAILY [facility] [place] Last Admin: 06/04/18 10:21 Dose: 1 patch Nystatin (Mycostatin Cream) 0 ea TOP TID [facility] Last Admin: 06/04/18 18:13 Dose: 1 dose Ondansetron HCl (Zofran Inj) 4 mg IVP Q6H PRN PRN Reason: Nausea/Vomiting Last Admin: 06/04/18 10:20 Dose: 4 mg Pantoprazole Sodium (Protonix Inj) 40 mg IVP DAILY [facility] Last Admin: 06/04/18 10:21 Dose: 40 mg Saliva Substitute (Mouth Kote 236 Ml) 0 ml MM Q6 PRN PRN Reason: Dry mouth Vitamin A (Vitamin A & D Oint Ud Foilpak) 1 ea TOP Q8 PRN PRN Reason: dry lips Last Admin: 05/20/18 11:10 Dose: 1 ea - Labs Labs: 06/03/18 06:54 06/03/18 06:54 PT 16.0 SECONDS (9.7-12.2) H 05/26/18 06:32 INR 1.5 05/26/18 06:32 APTT 33 SECONDS (21-34) 05/25/18 06:16 - Constitutional Appears: Non-toxic, No Acute Distress - Head Exam Head Exam: ATRAUMATIC, NORMAL INSPECTION, NORMOCEPHALIC - Eye Exam Eye Exam: EOMI, Normal appearance - ENT Exam ENT Exam: Mucous Membranes Moist, Normal Exam Additional comments: NGT - Neck Exam Neck Exam: Normal Inspection - Respiratory Exam Respiratory Exam: Clear to Ausculation Bilateral, NORMAL BREATHING PATTERN - Cardiovascular Exam Cardiovascular Exam: REGULAR RHYTHM, +S1, +S2 - GI/Abdominal Exam GI & Abdominal Exam: Soft, Tenderness. absent: Firm, Rigid Additional comments: wound vac in place - Rectal Exam Rectal Exam: Deferred - Back Exam Back Exam: NORMAL INSPECTION - Neurological Exam Neurological Exam: Alert, Awake, CN II-XII Intact, Oriented x3 - Psychiatric Exam Psychiatric exam: Normal Affect, Normal Mood - Skin Skin Exam: Dry, Intact, Normal Color, Warm Assessment and Plan - Assessment and Plan (Free Text) Assessment: Patient is a 37 yo female with a history of gastric bypass in 2013 who presented with severe abdominal pain. She was found to have bowel ischemia 2/2 internal hernia. Patient underwent ex lap on 05/14 and again on 05/16. She will need a repeat surgery 4-6 weeks from the first. She currently has an NGT and is utilizing a G tube for nutrition/meds. Plan: Wound vac placed 06/03/18. PICC line in R arm. Blood work now every other day. Measure vitamin levels and replace as needed - Vit D <12.8- vit D 50,000 units q1wk x8 wks - Prealbumin 18.1 - B12 707 - Folate 12.6 - F/u A, B1, B6, E Ischemic bowel disease- 2/2 to internal hernias producing bowel obstruction - Pre-op CT A/P (05/13/18): Writhing appearance of mesenteric vessels. Mesenteric edema. No evidence of bowel obstruction. Whirling appearance of mesenteric vessels is nonspecific. Prominent mesenteric lymph nodes. Mesenteric edema. - Lactate: 3.6 (pre-op)-->2.4 (post-op)-->0.9 - Initially stool occult blood positive- patient denies bloody BMs presently , Hgb stable - Patient required emergent surgical intervention on 05/14/18 and transferred to ICU. Patient had a second surgery on 05/16/18. - Per operative note (05/14/18): Diagnostic laparoscopy, Exploratory laparotomy, Reduction of internal hernia, Lysis of adhesions, Drainage of abdominal collections, temporary abdominal closure, EGD. Ischemia of yenni limb, internal hernia. Erbacon drain stitched to distal common limb - Per operative note (05/16/18): Re-exploration, Small bowel resection of ileum, small bowel resection of Yenni limb with gastrojejunostomy, reversal of bypass, primary anastomosis of ileum-ileum, ileum-ileum, and ileum- jejunum, Gastrostomy tube in bypassed stomach, EGD - Will need f/u surgery in 4-6 weeks from original surgery date (05/14) to restore GI - GI series w/ small bowel (05/24/18): no evidence of postsurgical leak - Current drains include: NGT, gastrostomy tube- temporary Srivastava in place after G-tube "fell out" on 05/30 - Cultures: Peritoneal Fluid (05/14/18): Pseudomonas Aeruginosa sensitive to Meropenem Wound Culture (05/23/18): Yudith albicans Blood culture (05/15/18, 05/22/18): no growth Urine culture (05/22/18): no growth - F/u wound Cx from incision site 05/31: Enterococcus faecalis, Acinetobacter baumannii- contact precautions in effect - Start Cipro 400 mg IV q12hrs (started 06/02) - Discontinued Meropenem 1 gm IVPB Q8H (active since 05/15/18-05/27/18) - Flagyl 500mg IVPB Q8H (active since 05/15/18) - Nystatin cream TID for G-tube site (Yudith) - Tylenol 975 mg liq q8hrs - Dilaudid 1.5 mg IV q3hrs PRN - Surgery consulted (Dr. Harley) - GI consulted (Dr. Alvarado) - ID consulted (Dr. Rivera)- d/c abx, continue Diflucan - PT consulted- working with patient, current rec TCU following discharge Tachycardia, improving (100s-110s)- possibly etiologies include pain, infection , anxiety - Metoprolol tartrate 5 mg IV q6hrs with holding parameters (SBP <100, HR <60 ) Leukocytosis, improving (08/11)- likely 2/2 to ischemic bowel 2/2 to small bowel obstruction, surgeries, and abdominal incision infection/?fistula - Procalcitonin: 0.44 - Cultures: Peritoneal Fluid (05/14/18): Pseudomonas Aeruginosa sensitive to Meropenem Wound Culture (05/23/18): Yudith albicans Blood culture (05/15/18, 05/22/18): no growth Urine culture (05/22/18): no growth - Wound Cx from incision site 05/31: Enterococcus faecalis, Acinetobacter baumannii - Monitor CBC QOD Diarrhea, acute, improved- suspect 2/2 PO intake by pt - C. Diff (05/22, 05/24, 05/28): negative - Stool O&P (05/25/18): negative - Stool leukocytes (05/25/18): negative Anxiety- Patient was taking Xanax for anxiety noted in prior note - Ativan 1 mg IV BID - Lexapro 5 mg PO daily (started 05/31) - Director Of Sales consulted- pt initially refused but then accepted - Psychiatry consulted (Dr. Reyez)- managing Ativan Anemia, acute, stable (Hgb 7.9)- pt denies blood in stool - Patient received a total of 2 PRBC and 4 FFP - Iron 16, TIBC 205, % sat 4.7, ferritin 75.3 - Monitor CBC QOD Thombocytosis, improved (344)- suspect reactive to pain, surgery - Monitor CBC QOD T2DM, controlled- From prior note: Admittedly non-compliant, has not taken Januvia for one year - Accuchecks q6hrs - Hypoglycemic protocol - ISS regular - HbA1c 5.8 - History of gastric bypass surgery Hypercholesterolemia- untreated - LDL 38, HDL 14, Chol 104, TG 226 - History of gastric bypass surgery - F/u lipid panel 06/03 Hx of HTN, controlled- since gastric bypass has not taken meds - Metoprolol 5 mg IV q6hrs Hx of Obesity, resolved - s/p gastric bypass surgery in 2013 Hx of Asthma- patient not in acute exacerbation - Atrovent q6hrs Nicotine use disorder- From prior note: 1ppd x 20 yrs, 1/2 ppd x 3 yrs - Nicoderm 1 patch TD QD Hydrocortisone 1% Cream topical TID PRN for arm rash- improved Vitamin A&D topical q8hrs PRN for dry lips Saliva substitute q6hrs PRN for dry mouth IVF: not indicated VTE ppx: Lovenox 40 mg SC daily, SCDs GI ppx: Protonix 40 mg IV BID, Florastor BID Diet: feeds via gastrostomy (temporary Srivastava in place)- managed by surgery Code status: full code Dispo: awaiting follow-up surgery and surgical team's recs <Franki Denise - Last Filed: 06/05/18 09:57> Objective - Vital Signs/Intake and Output Vital Signs (last 24 hours): Temp Pulse Resp BP Pulse Ox 98.8 F 110 H 20 108/67 97 06/05/18 06:24 06/05/18 07:35 06/05/18 06:24 06/05/18 06:24 06/05/18 06:24 Intake and Output: 06/05/18 06/05/18 06:59 18:59 Intake Total 1000 Output Total 2151 Balance -1151 - Medications Medications: Current Medications Acetaminophen (Tylenol 650mg/20.3ml Solution Ud) 975 mg GT Q8 [facility] Last Admin: 06/05/18 05:38 Dose: 975 mg Cholestyramine Resin (Questran) 4 gm PO BID [facility] Last Admin: 06/04/18 18:12 Dose: 4 gm Dextrose (Dextrose 50% Inj) 0 ml IV STAT PRN; Protocol PRN Reason: Hypoglycemia Protocol Last Admin: 05/16/18 23:40 Dose: 50 ml Dextrose (Glutose 15) 0 gm PO ONCE PRN; Protocol PRN Reason: Hypoglycemia Protocol Diphenhydramine HCl (Benadryl) 25 mg IVP HS PRN PRN Reason: Insomnia Last Admin: 06/04/18 21:20 Dose: 25 mg Enoxaparin Sodium (Lovenox) 40 mg SC DAILY [facility] Last Admin: 06/04/18 10:22 Dose: 40 mg Ergocalciferol (Drisdol 50,000 Intl Units Cap) 1 cap PO Q7D [facility] Stop: 07/20/18 10:31 Last Admin: 06/01/18 12:13 Dose: 1 cap Escitalopram Oxalate (Lexapro) 5 mg NG DAILY [facility] [place] Last Admin: 06/04/18 10:22 Dose: 5 mg Glucagon (Glucagen Diagnostic Kit) 0 mg IM STAT PRN; Protocol PRN Reason: Hypoglycemia Protocol Hydrocortisone (Cortizone 1% Cream) 0 gm TOP TID PRN PRN Reason: Rash Hydromorphone HCl (Dilaudid) 1.5 mg IVP Q3 PRN PRN Reason: Pain, SEVERE (8-10) Last Admin: 06/05/18 07:35 Dose: 1.5 mg Metronidazole (Flagyl) 500 mg in 100 mls @ 100 mls/hr IVPB Q8H [facility] PRN Reason: Protocol Last Admin: 06/05/18 04:40 Dose: 100 mls/hr Ciprofloxacin (Cipro 400mg/200ml Dsw) 400 mg in 200 mls @ 133 mls/hr IVPB Q12H [facility] PRN Reason: Protocol Last Admin: 06/05/18 01:24 Dose: 133 mls/hr Potassium Chloride (Potassium Chloride 20 Meq/100 Ml) 20 meq in 100 mls @ 50 mls/hr IVPB ONCE ONE Stop: 06/05/18 11:24 Potassium Chloride (Potassium Chloride 20 Meq/100 Ml) 20 meq in 100 mls @ 50 mls/hr IVPB ONCE ONE Stop: 06/05/18 13:59 Insulin Human Regular (Novolin R) 0 unit SC Q6 [facility] PRN Reason: Protocol Last Admin: 06/05/18 06:40 Dose: Not Given Ipratropium Darby (Atrovent) 0.5 mg IH RQ6 [facility] Last Admin: 06/05/18 07:39 Dose: 0.5 mg Lactobacillus Acidophilus (Bacid Acidophilus) 1 cap PEG BID [facility] Last Admin: 06/04/18 18:12 Dose: 1 cap Loperamide HCl (Imodium) 1 mg PO Q2H PRN PRN Reason: Diarrhea Last Admin: 06/04/18 21:22 Dose: 1 mg Lorazepam (Ativan) 1 mg IVP BID [facility] Last Admin: 06/04/18 18:13 Dose: 1 mg Metoprolol Tartrate (Lopressor) 5 mg IVP Q6H [facility] Last Admin: 06/05/18 04:40 Dose: 5 mg Nicotine (Nicoderm Cq) 1 patch TD DAILY [facility] Last Admin: 06/04/18 10:21 Dose: 1 patch Nystatin (Mycostatin Cream) 0 ea TOP TID [facility] Last Admin: 06/04/18 18:13 Dose: 1 dose Ondansetron HCl (Zofran Inj) 4 mg IVP Q6H PRN PRN Reason: Nausea/Vomiting Last Admin: 06/04/18 10:20 Dose: 4 mg Pantoprazole Sodium (Protonix Inj) 40 mg IVP DAILY [facility] [place] Last Admin: 06/04/18 10:21 Dose: 40 mg Saliva Substitute (Mouth Kote 236 Ml) 0 ml MM Q6 PRN PRN Reason: Dry mouth Vitamin A (Vitamin A & D Oint Ud Foilpak) 1 ea TOP Q8 PRN PRN Reason: dry lips Last Admin: 05/20/18 11:10 Dose: 1 ea - Labs Labs: 06/05/18 07:44 06/05/18 07:44 PT 16.0 SECONDS (9.7-12.2) H 05/26/18 06:32 INR 1.5 05/26/18 06:32 APTT 33 SECONDS (21-34) 05/25/18 06:16 Attending/Attestation - Attestation I have personally seen and examined this patient.: Yes I have fully participated in the care of the patient.: Yes I have reviewed all pertinent clinical information, including history, physical exam and plan: Yes Notes (Text): 06/05/18 09:45 Patient was seen and examined at 9:30 AM 06/05/18 Patient has had just 1 watery bowel movement this morning. Looking at her phone at times to determine when her next pain medication is due. Again no form of distress is noted at the time of my exam Complains that the abdominal wound vac is leaking: will notify surgical team Left heal lesion has resolved Left upper arm blood blister has resolved Right upper arm rash has resolved Abdominal Wound Culture 05/31/18 grew Acinobacter baumannii and Enterococcus faecalis sensitive to Ciprofloxacin and she is on 400 mg IV Q12H since 06/01/18. She has ALL to Moxifloxacin but NOT to Ciprofloxacin. Medicine Team please speak with ID Dr. Rivera about whether Flagyl can be discontinued or not as she has been on this since 05/15/18. She has NO fevers and blood pressure is stable despite being slightly tachycardic Iron Level is low at 16 however holding off on repleting this due to the theoretical risk of providing nutrient to infection. Vitamin B12 is normal at 707 Vitamin B1, B6, A, E are pending Vitamin D is low at 12.8 and it is being repleted at 50,000 Units once a week on Wednesday starting on 06/01/18 for a total of 8 doses Folate is normal at 12.6 Patient is currently on Osmolite via G Tube which has the following components: MCT Oil (benefits in situations with malabsorption and is low residue) 1440 calories 70 gm protein 914 ml free water Should at any time the patient require TPN then we can try the following options : 83 ml/hr: 2100 tete, 100 gm protein 63 ml/hr: 1575 tete, 75 gm protein 20% Intrilipid every other day with either one of the TPN rates mentioned above Awaiting surgical reconnection Franki Denise D.O. 06/05/18 09:56
[2018-06-05] MEDS: Ipratropium 0.02% Inhal Soln (0.5 mg/2.5 ml) UD IH SCH ×4 (01:21→20:43)
[2018-06-05] MEDS: Ciprofloxacin 400mg/200ml D5W 400 MG/200 ML BAG IVPB SCH ×2 (01:24→14:01)
[2018-06-05] MEDS: Metoprolol 1 mg/ml Inj IVP SCH ×4 (04:40→22:27)
[2018-06-05] MEDS: metroNIDAZOLE IV 500 mg/100 ml 500 MG/100 ML BAG IVPB SCH ×3 (04:40→19:42)
[2018-06-05] MEDS: Acetaminophen 650mg/20.3ml solution UD GT SCH ×3 (05:38→22:25)
[2018-06-05] MEDS: (Novolin R) Insulin Human Regular 100 units/ml vial SC SCH ×4 (06:40→23:48)
[2018-06-05 07:58] LABS: BASO # 0.1 K/uL (0.0-0.2); BASO % 0.8 % (0.0-2.0); EOS # 0.3 K/uL (0.0-0.7); EOS % 3.4 % (0.0-4.0); HEMOGLOBIN 8.3 g/dL (11.0-16.0); LYMPH # 1.7 K/uL (1.0-4.3); LYMPH % 23.5 % (20.0-40.0); MEAN CORPUSCULAR HEMOGLOBIN 28.7 pg (27.0-31.0); MEAN CORPUSCULAR HGB CONC 33.4 g/dL (33.0-37.0); MONO # 0.7 K/uL (0.0-0.8); MONO % 9.3 % (0.0-10.0); NEUT # 4.6 K/uL (1.8-7.0); NRBC % 0.3 % (0.0-2.0); RBC 2.9 Mil/uL (3.80-5.20); RED CELL DISTRIBUTION WIDTH 16.7 % (11.5-14.5); WHITE BLOOD COUNT 7.4 K/uL (4.8-10.8)
[2018-06-05 08:12] LABS: ALB/GLOB RATIO 0.9 (1.0-2.1); ALBUMIN 2.6 g/dL (3.5-5.0); ALT/SGPT 16 U/L (9-52); AST/SGOT 19 U/L (14-36); BLOOD UREA NITROGEN 8 mg/dL (7-17); GFR NON-AFRICAN AMERICAN > 60
[2018-06-05] MEDS: Enoxaparin 40 mg Syringe SC SCH (10:19)
[2018-06-05] MEDS: Cholestyramine 4 gm/Pkt UD PO SCH ×2 (10:21→18:00)
[2018-06-05] MEDS: Lactobacillus Acidophilus 500 MU Cap PEG SCH ×2 (10:21→18:00)
[2018-06-05] MEDS: Nystatin 100,000 Units/gm Cream(15 gm) TOP SCH ×3 (10:21→18:00)
--- NOTE | 2018-06-05 10:30 | CP.PCM.PN ---
<Marti Mo - Last Filed: 06/05/18 10:31> Subjective - Date & Time of Evaluation Date of Evaluation: 06/05/18 Time of Evaluation: 08:20 - Subjective Subjective: General Surgery progress note for Dr. Harley Patient seen and examined at bedside this AM. Overnight patient had small leak of fluid from fistula under the wound vac dressing, with wound vac seal still intact. Was reinforced but again has liquid sitting underneath plastic dressing this AM. Patient states that diarrhea is lessening, denies abdominal pain, nausea or vomiting. Objective - Vital Signs/Intake and Output Vital Signs (last 24 hours): Temp Pulse Resp BP Pulse Ox 98.8 F 110 H 20 108/67 97 06/05/18 06:24 06/05/18 07:35 06/05/18 06:24 06/05/18 06:24 06/05/18 06:24 Intake and Output: 06/05/18 06/05/18 06:59 18:59 Intake Total 1000 Output Total 2151 Balance -1151 - Medications Medications: Current Medications Acetaminophen (Tylenol 650mg/20.3ml Solution Ud) 975 mg GT Q8 [facility] Last Admin: 06/05/18 05:38 Dose: 975 mg Cholestyramine Resin (Questran) 4 gm PO BID KATELYN Last Admin: 06/04/18 18:12 Dose: 4 gm Dextrose (Dextrose 50% Inj) 0 ml IV STAT PRN; Protocol PRN Reason: Hypoglycemia Protocol Last Admin: 05/16/18 23:40 Dose: 50 ml Dextrose (Glutose 15) 0 gm PO ONCE PRN; Protocol PRN Reason: Hypoglycemia Protocol Diphenhydramine HCl (Benadryl) 25 mg IVP HS PRN PRN Reason: Insomnia Last Admin: 06/04/18 21:20 Dose: 25 mg Enoxaparin Sodium (Lovenox) 40 mg SC DAILY [facility] Last Admin: 06/04/18 10:22 Dose: 40 mg Ergocalciferol (Drisdol 50,000 Intl Units Cap) 1 cap PO Q7D [facility] Stop: 07/20/18 10:31 Last Admin: 06/01/18 12:13 Dose: 1 cap Escitalopram Oxalate (Lexapro) 5 mg NG DAILY [facility] Last Admin: 06/04/18 10:22 Dose: 5 mg Glucagon (Glucagen Diagnostic Kit) 0 mg IM STAT PRN; Protocol PRN Reason: Hypoglycemia Protocol Hydrocortisone (Cortizone 1% Cream) 0 gm TOP TID PRN PRN Reason: Rash Hydromorphone HCl (Dilaudid) 1.5 mg IVP Q3 PRN PRN Reason: Pain, SEVERE (8-10) Last Admin: 06/05/18 07:35 Dose: 1.5 mg Metronidazole (Flagyl) 500 mg in 100 mls @ 100 mls/hr IVPB Q8H KAT[facility]N PRN Reason: Protocol Last Admin: 06/05/18 04:40 Dose: 100 mls/hr Ciprofloxacin (Cipro 400mg/200ml Dsw) 400 mg in 200 mls @ 133 mls/hr IVPB Q12H KAT[facility]N PRN Reason: Protocol Last Admin: 06/05/18 01:24 Dose: 133 mls/hr Potassium Chloride (Potassium Chloride 20 Meq/100 Ml) 20 meq in 100 mls @ 50 mls/hr IVPB ONCE ONE Stop: 06/05/18 11:59 Potassium Chloride (Potassium Chloride 20 Meq/100 Ml) 20 meq in 100 mls @ 50 mls/hr IVPB ONCE ONE Stop: 06/05/18 13:59 Insulin Human Regular (Novolin R) 0 unit SC Q6 [facility] PRN Reason: Protocol Last Admin: 06/05/18 06:40 Dose: Not Given Ipratropium Defiance (Atrovent) 0.5 mg IH RQ6 [facility] Last Admin: 06/05/18 07:39 Dose: 0.5 mg Lactobacillus Acidophilus (Bacid Acidophilus) 1 cap PEG BID [facility] Last Admin: 06/04/18 18:12 Dose: 1 cap Loperamide HCl (Imodium) 1 mg PO Q2H PRN PRN Reason: Diarrhea Last Admin: 06/04/18 21:22 Dose: 1 mg Lorazepam (Ativan) 1 mg IVP BID [facility] Last Admin: 06/04/18 18:13 Dose: 1 mg Metoprolol Tartrate (Lopressor) 5 mg IVP Q6H [facility] Last Admin: 06/05/18 04:40 Dose: 5 mg Nicotine (Nicoderm Cq) 1 patch TD DAILY [facility] Last Admin: 06/04/18 10:21 Dose: 1 patch Nystatin (Mycostatin Cream) 0 ea TOP TID [facility] Last Admin: 06/04/18 18:13 Dose: 1 dose Ondansetron HCl (Zofran Inj) 4 mg IVP Q6H PRN PRN Reason: Nausea/Vomiting Last Admin: 06/04/18 10:20 Dose: 4 mg Pantoprazole Sodium (Protonix Inj) 40 mg IVP DAILY [facility] Last Admin: 06/04/18 10:21 Dose: 40 mg Saliva Substitute (Mouth Kote 236 Ml) 0 ml MM Q6 PRN PRN Reason: Dry mouth Vitamin A (Vitamin A & D Oint Ud Foilpak) 1 ea TOP Q8 PRN PRN Reason: dry lips Last Admin: 05/20/18 11:10 Dose: 1 ea - Labs Labs: 06/05/18 07:44 06/05/18 07:44 PT 16.0 SECONDS (9.7-12.2) H 05/26/18 06:32 INR 1.5 05/26/18 06:32 APTT 33 SECONDS (21-34) 05/25/18 06:16 - Constitutional Appears: Well, Non-toxic, No Acute Distress - Head Exam Head Exam: ATRAUMATIC, NORMOCEPHALIC - Eye Exam Eye Exam: Normal appearance. absent: Conjunctival injection, Scleral icterus - ENT Exam ENT Exam: Mucous Membranes Moist, Normal Oropharynx - Respiratory Exam Respiratory Exam: NORMAL BREATHING PATTERN. absent: Accessory Muscle Use, Respiratory Distress - GI/Abdominal Exam GI & Abdominal Exam: Soft, Tenderness (diffuse mild tenderness to palpation). absent: Distended Additional comments: mildline incision covered in wound vac with good seal. Small amount of yellow serous fluid underneat the tegaderm dressing in the right inferior portion. Good seal intact. Approximately 100cc serous output/24 hours - Extremities Exam Extremities Exam: absent: Calf Tenderness, Tenderness - Neurological Exam Neurological Exam: Alert, Awake, Oriented x3 - Psychiatric Exam Psychiatric exam: Normal Affect, Normal Mood - Skin Skin Exam: Dry, Normal Color, Warm Assessment and Plan - Assessment and Plan (Free Text) Assessment: 38yo F with PMHx of [id number] gastric bypass in 2013, presented with bowel ischemia secondary to internal hernia. POD#22 s/p Exploratory laparotomy, Reduction of internal hernia, DANNI, Drainage of abdominal collections, temporary abdominal closure, and EGD. POD#18 s/p Re-exploration, resection of ileum and Yenni limb including previous gastrojejunostomy, reversal of bypass, primary anastomosis of ileum-ileum, ileum -ileum, and ileum-jejunum, Gastrostomy tube in bypassed stomach, EGD Current drainage from mildine incision possibly d/t leak of tube feed contents from around gastrostomy tube vs fistula--wound vac in place Plan: Continue to monitor labs Q2days Continue wound vac to continuous suction and following output--will change on Wednesday Continue tube feeds for nutrition Continue NGT to continuous suctin Continue antibiotics, PRN pain medications Encourage ambulation Following Bariatric surgeon recommendations--current recommending no hinduism of continuity operation until 5 weeks after most recent surgery-- patient needs to fully medically optimized prior to OR Discussed with Dr. Harley, who agrees with above Marti Mo PGY2 <Gómez Harley B - Last Filed: 06/06/18 15:53> Objective - Vital Signs/Intake and Output Vital Signs (last 24 hours): Temp Pulse Resp BP Pulse Ox 98.4 F 99 H 18 104/74 94 L 06/06/18 07:35 06/06/18 07:35 06/06/18 07:35 06/06/18 07:35 06/06/18 07:35 Intake and Output: 06/06/18 06/06/18 06:59 18:59 Intake Total 700 Output Total 360 Balance 340 - Medications Medications: Current Medications Acetaminophen (Tylenol 650mg/20.3ml Solution Ud) 975 mg GT Q8 [facility] Last Admin: 06/06/18 13:46 Dose: 975 mg Cholestyramine Resin (Questran) 4 gm PO BID [facility] Last Admin: 06/06/18 10:44 Dose: 4 gm Dextrose (Dextrose 50% Inj) 0 ml IV STAT PRN; Protocol PRN Reason: Hypoglycemia Protocol Last Admin: 05/16/18 23:40 Dose: 50 ml Dextrose (Glutose 15) 0 gm PO ONCE PRN; Protocol PRN Reason: Hypoglycemia Protocol Diphenhydramine HCl (Benadryl) 25 mg IVP HS PRN PRN Reason: Insomnia Last Admin: 06/05/18 22:25 Dose: 25 mg Enoxaparin Sodium (Lovenox) 40 mg SC DAILY [facility] Last Admin: 06/06/18 10:44 Dose: 40 mg Ergocalciferol (Drisdol 50,000 Intl Units Cap) 1 cap PO Q7D [facility] Stop: 07/20/18 10:31 Last Admin: 06/01/18 12:13 Dose: 1 cap Escitalopram Oxalate (Lexapro) 10 mg GT DAILY [facility] Last Admin: 06/06/18 10:44 Dose: 10 mg Glucagon (Glucagen Diagnostic Kit) 0 mg IM STAT PRN; Protocol PRN Reason: Hypoglycemia Protocol Hydrocortisone (Cortizone 1% Cream) 0 gm TOP TID PRN PRN Reason: Rash Hydromorphone HCl (Dilaudid) 1.5 mg IVP Q3 PRN PRN Reason: Pain, SEVERE (8-10) Last Admin: 06/06/18 13:43 Dose: 1.5 mg Metronidazole (Flagyl) 500 mg in 100 mls @ 100 mls/hr IVPB Q8H [facility]N PRN Reason: Protocol Last Admin: 06/06/18 12:45 Dose: 100 mls/hr Ciprofloxacin (Cipro 400mg/200ml Dsw) 400 mg in 200 mls @ 133 mls/hr IVPB Q12H [facility]N PRN Reason: Protocol Last Admin: 06/06/18 13:47 Dose: 133 mls/hr Insulin Human Regular (Novolin R) 0 unit SC Q6 [facility] PRN Reason: Protocol Last Admin: 06/06/18 12:17 Dose: Not Given Ipratropium [place] (Atrovent) 0.5 mg IH RQ6 [facility] Last Admin: 06/06/18 13:10 Dose: Not Given Lactobacillus Acidophilus (Bacid Acidophilus) 1 cap PEG BID [facility] Last Admin: 06/06/18 10:44 Dose: 1 cap Loperamide HCl (Imodium) 1 mg PO Q2H PRN PRN Reason: Diarrhea Last Admin: 06/06/18 11:26 Dose: 1 mg Lorazepam (Ativan) 1 mg IVP BID [facility] Last Admin: 06/06/18 10:42 Dose: 1 mg Metoprolol Tartrate (Lopressor) 5 mg IVP Q6H [facility] Last Admin: 06/06/18 10:42 Dose: 5 mg Nicotine (Nicoderm Cq) 1 patch TD DAILY [facility] Last Admin: 06/06/18 10:44 Dose: 1 patch Nystatin (Mycostatin Cream) 0 ea TOP TID [facility] Last Admin: 06/06/18 14:58 Dose: Not Given Ondansetron HCl (Zofran Inj) 4 mg IVP Q6H PRN PRN Reason: Nausea/Vomiting Last Admin: 06/06/18 11:26 Dose: 4 mg Pantoprazole Sodium (Protonix Inj) 40 mg IVP DAILY [facility] Last Admin: 06/06/18 10:42 Dose: 40 mg Saliva Substitute (Mouth Kote 236 Ml) 0 ml MM Q6 PRN PRN Reason: Dry mouth Vitamin A (Vitamin A & D Oint Ud Foilpak) 1 ea TOP Q8 PRN PRN Reason: dry lips Last Admin: 05/20/18 11:10 Dose: 1 ea - Labs Labs: 06/05/18 07:44 06/05/18 07:44 PT 16.0 SECONDS (9.7-12.2) H 05/26/18 06:32 INR 1.5 05/26/18 06:32 APTT 33 SECONDS (21-34) 05/25/18 06:16 Attending/Attestation - Attestation I have personally seen and examined this patient.: Yes I have fully participated in the care of the patient.: Yes I have reviewed all pertinent clinical information, including history, physical exam and plan: Yes Notes (Text): Pt is stable clinically C/w wound vac c.w current mx Plan d.w pt and primary team in detail
[2018-06-05] MEDS: Loperamide Hydrochloride 1 mg/5 ml Cup PO PRN ×2 (13:13→18:00)
[2018-06-05] MEDS: DiphenhydrAMINE 50 mg/ml Inj IVP PRN (22:25)
[2018-06-06] MEDS: Ipratropium 0.02% Inhal Soln (0.5 mg/2.5 ml) UD IH SCH ×5 (01:15→20:15)
[2018-06-06] MEDS: Ciprofloxacin 400mg/200ml D5W 400 MG/200 ML BAG IVPB SCH ×2 (01:37→13:47)
[2018-06-06] MEDS: Metoprolol 1 mg/ml Inj IVP SCH ×4 (04:21→21:56)
[2018-06-06] MEDS: metroNIDAZOLE IV 500 mg/100 ml 500 MG/100 ML BAG IVPB SCH ×3 (04:21→19:47)
[2018-06-06] MEDS: Acetaminophen 650mg/20.3ml solution UD GT SCH ×3 (05:49→21:50)
[2018-06-06] MEDS: (Novolin R) Insulin Human Regular 100 units/ml vial SC SCH ×3 (06:28→18:15)
--- NOTE | 2018-06-06 07:41 | CP.PCM.PN ---
<Sarbjit Torres M - Last Filed: 06/06/18 19:03> Subjective - Date & Time of Evaluation Date of Evaluation: 06/06/18 Time of Evaluation: 08:00 - Subjective Subjective: PGY 1 Medicine Resident Note for Dr. Turk. Patient seen and examined at bedside. Patient is in no acute distress. Wound vac was placed 3 days ago (06/03) and per patient, has been draining fluid since placement. She keeps a towel over the wound vac to absorb the leaking fluid. She denies pain at the site and denies drainage at the g-tube site where ojeda is in place for feeds. Patient is concerned that her NG tube may not be draining properly as nothing has come out since yesterday. She states she has continued sharp stabbing abdominal pain but it only occurs when her pain medication starts to wear off. She also complains of a 2-3 day history of left ear pain that she notes feels similar to her prior TMJ pain. She states she has not taken anything by mouth over the last 24 hours. The frequency of her bowel movements has decreased; she had 3 episodes of non-bloody diarrhea overnight. She denies shortness of breath, chest pain, palpitations, dizziness, headaches, vision changes, constipation, cough, congestion, or sore throat. Objective - Vital Signs/Intake and Output Vital Signs (last 24 hours): Temp Pulse Resp BP Pulse Ox 98.5 F 118 H 20 116/77 95 06/05/18 23:20 06/06/18 04:25 06/05/18 23:20 06/06/18 04:25 06/05/18 23:20 Intake and Output: 06/06/18 06/06/18 06:59 18:59 Intake Total 700 Output Total 360 Balance 340 - Medications Medications: Current Medications Acetaminophen (Tylenol 650mg/20.3ml Solution Ud) 975 mg GT Q8 [facility] Last Admin: 06/06/18 05:49 Dose: 975 mg Cholestyramine Resin (Questran) 4 gm PO BID [facility] Last Admin: 06/05/18 18:00 Dose: 4 gm Dextrose (Dextrose 50% Inj) 0 ml IV STAT PRN; Protocol PRN Reason: Hypoglycemia Protocol Last Admin: 05/16/18 23:40 Dose: 50 ml Dextrose (Glutose 15) 0 gm PO ONCE PRN; Protocol PRN Reason: Hypoglycemia Protocol Diphenhydramine HCl (Benadryl) 25 mg IVP HS PRN PRN Reason: Insomnia Last Admin: 06/05/18 22:25 Dose: 25 mg Enoxaparin Sodium (Lovenox) 40 mg SC DAILY [facility] Last Admin: 06/05/18 10:19 Dose: 40 mg Ergocalciferol (Drisdol 50,000 Intl Units Cap) 1 cap PO Q7D [facility] Stop: 07/20/18 10:31 Last Admin: 06/01/18 12:13 Dose: 1 cap Escitalopram Oxalate (Lexapro) 10 mg NG DAILY [facility] Glucagon (Glucagen Diagnostic Kit) 0 mg IM STAT PRN; Protocol PRN Reason: Hypoglycemia Protocol Hydrocortisone (Cortizone 1% Cream) 0 gm TOP TID PRN PRN Reason: Rash Hydromorphone HCl (Dilaudid) 1.5 mg IVP Q3 PRN PRN Reason: Pain, SEVERE (8-10) Last Admin: 06/06/18 07:34 Dose: 1.5 mg Metronidazole (Flagyl) 500 mg in 100 mls @ 100 mls/hr IVPB Q8H [facility] PRN Reason: Protocol Last Admin: 06/06/18 04:21 Dose: 100 mls/hr Ciprofloxacin (Cipro 400mg/200ml Dsw) 400 mg in 200 mls @ 133 mls/hr IVPB Q12H [facility] PRN Reason: Protocol Last Admin: 06/06/18 01:37 Dose: 133 mls/hr Insulin Human Regular (Novolin R) 0 unit SC Q6 [facility] PRN Reason: Protocol Last Admin: 06/06/18 06:28 Dose: Not Given Ipratropium [place] (Atrovent) 0.5 mg IH RQ6 [facility] Last Admin: 06/06/18 07:24 Dose: Not Given Lactobacillus Acidophilus (Bacid Acidophilus) 1 cap PEG BID [facility] Last Admin: 06/05/18 18:00 Dose: 1 cap Loperamide HCl (Imodium) 1 mg PO Q2H PRN PRN Reason: Diarrhea Last Admin: 06/05/18 18:00 Dose: 1 mg Lorazepam (Ativan) 1 mg IVP BID [facility] Last Admin: 06/05/18 18:00 Dose: 1 mg Metoprolol Tartrate (Lopressor) 5 mg IVP Q6H [facility] Last Admin: 08/27/18 04:21 Dose: 5 mg Nicotine (Nicoderm Cq) 1 patch TD DAILY [facility] Last Admin: 06/05/18 10:21 Dose: 1 patch Nystatin (Mycostatin Cream) 0 ea TOP TID [facility] Last Admin: 06/05/18 18:00 Dose: 1 applic Ondansetron HCl (Zofran Inj) 4 mg IVP Q6H PRN PRN Reason: Nausea/Vomiting Last Admin: 06/05/18 12:32 Dose: 4 mg Pantoprazole Sodium (Protonix Inj) 40 mg IVP DAILY [facility] Last Admin: 06/05/18 10:20 Dose: 40 mg Saliva Substitute (Mouth Kote 236 Ml) 0 ml MM Q6 PRN PRN Reason: Dry mouth Vitamin A (Vitamin A & D Oint Ud Foilpak) 1 ea TOP Q8 PRN PRN Reason: dry lips Last Admin: 05/20/18 11:10 Dose: 1 ea - Labs Labs: 06/05/18 07:44 06/05/18 07:44 PT 16.0 SECONDS (9.7-12.2) H 05/26/18 06:32 INR 1.5 05/26/18 06:32 APTT 33 SECONDS (21-34) 05/25/18 06:16 - Constitutional Appears: Non-toxic, No Acute Distress - Head Exam Head Exam: NORMAL INSPECTION - Eye Exam Eye Exam: EOMI, Normal appearance, PERRL - ENT Exam ENT Exam: Normal External Ear Exam Additional comments: Non-erythematous, non-bulging TMs, w/ no exudate bilaterally, tenderness over the left TMJ - Respiratory Exam Respiratory Exam: Clear to Ausculation Bilateral, NORMAL BREATHING PATTERN. absent: Rales, Rhonchi, Wheezes - Cardiovascular Exam Cardiovascular Exam: +S1, +S2 - GI/Abdominal Exam Additional comments: Healing midline linear surgical wound with overlying wound vac in place draining brown/yellow discharge; no surrounding erythema, edema or tenderness; Ojeda in place at gastrostomy site with no surrounding erythema, edema, or tenderness. No suprapubic tenderness, no distention or guarding - Extremities Exam Additional comments: PICC line in place to right upper extremity without surrounding edema, erythema or ecchymotic changes - Neurological Exam Neurological Exam: Alert, Awake - Psychiatric Exam Psychiatric exam: Normal Affect, Normal Mood - Skin Skin Exam: Dry, Erythema, Intact, Normal Color Assessment and Plan - Assessment and Plan (Free Text) Assessment: Patient is a 37 year old female with a history of gastric bypass in 2013 who presented with several abdominal pain. She was found to have bowel ischemia 2/2 internal hernia. Patient underwent ex lap on 05/14 and again on 05/16. She will need a repeat surgery 4-6 weeks from the first. She currently has an NGT, is utilizing a ojeda at her gastrostomy site for nutrition/meds. Wound vac is in place over the incision site on 06/03 (will be changed on Wednesday), because wound is draining fecal matter, has a R arm PICC for Abx: Measure vitamin levels and replace as needed - Vit D <12.8- vit D 50,000 units q1wk x8 wks - Prealbumin 18.1 - B12 707 - Folate 12.6 - F/u A, B1, B6, E 1) Ischemic bowel disease- 2/2 to internal hernias producing bowel obstruction - Pre-op CT A/P (05/13/18): Writhing appearance of mesenteric vessels. Mesenteric edema. No evidence of bowel obstruction. Whirling appearance of mesenteric vessels is nonspecific. Prominent mesenteric lymph nodes. Mesenteric edema. - Lactate: 3.6 (pre-op)-->2.4 (post-op)-->0.9 - Initially stool occult blood positive- patient denies bloody BMs presently, Hgb stable - Patient required emergent surgical intervention on 05/14/18 and transferred to ICU. Patient had a second surgery on 05/16/18. - Per operative note (05/14/18): Diagnostic laparoscopy, Exploratory laparotomy, Reduction of internal hernia, Lysis of adhesions, Drainage of abdominal collections, temporary abdominal closure, EGD. Ischemia of yenni limb, internal hernia. Naveed drain stitched to distal common limb - Per operative note (05/16/18): Re-exploration, Small bowel resection of ileum, small bowel resection of Yenni limb with gastrojejunostomy, reversal of bypass, primary anastomosis of ileum-ileum, ileum-ileum, and ileum- jejunum, Gastrostomy tube in bypassed stomach, EGD - GI series w/ small bowel (05/24/18): no evidence of postsurgical leak - Current drains include: NGT (have on continuos suction), gastrostomy tube- temporary Ojeda in place after G-tube "fell out" on 05/30 - Will need f/u surgery in 4-6 weeks from original surgery date (05/14) to restore GI - Cultures: Peritoneal Fluid (05/14/18): Pseudomonas Aeruginosa sensitive to Meropenem Wound Culture (05/23/18): Yudith albicans Blood culture (05/15/18, 05/22/18): no growth Urine culture (05/22/18): no growth Incision site 05/31: Enterococcus faecalis, Acinetobacter baumannii - Start Cipro 400 mg IV q12hrs (started 06/02) - Flagyl 500mg IVPB Q8H (active since 05/15/18) - Nystatin cream TID for G-tube site (Yudith) - Discontinued Meropenem 1 gm IVPB Q8H (active since 05/15/18-05/27/18) - Tylenol 975 mg liq q8hrs - Dilaudid 1.5 mg IV q3hrs PRN - Zofran 4mg IV q6hrs PRN - PT consulted- working with patient, current rec TCU following discharge 2) Tachycardia, persistent (110s-130s)- possibly etiologies include pain, infection, anxiety - She is being treated for Left G Tube fluid infection. She has been started on Ativan PRN. She has Dilaudid on board to be used PRN. - Metoprolol tartrate 5 mg IV q6hrs with holding parameters (SBP <100, HR <60) 3) Leukocytosis, improved (8.9)- likely 2/2 to ischemic bowel 2/2 to small bowel obstruction and surgeries - Cultures: Peritoneal Fluid (05/14/18): Pseudomonas Aeruginosa sensitive to Meropenem Wound Culture (05/23/18): Yudith albicans Blood culture (05/15/18, 05/22/18): no growth Urine culture (05/22/18): no growth - Wound Cx from incision site 05/31: Enterococcus faecalis, Acinetobacter baumannii, on ciprofloxacin 400 mg (started 06/02) - Monitor CBC QOD 4) Diarrhea, acute, improving- suspect 2/2 PO intake by pt - C. Diff (05/22, 05/24, 05/28): negative - Stool O&P (05/25/18): negative - Stool leukocytes (05/25/18): negative - per ID continue flagyl for 2-3 additional days due to leak around wound vac 5) Anxiety - Sow Manager consulted- pt initially refused but then accepted - Psychiatry consulted (Dr. Reyez)- managing Ativan - Ativan 1 mg IV BID - Lexapro 10 mg PO daily (started 05/31) 6) Anemia, acute, stable (Hgb 8.3)- pt denies blood in stool - Patient received a total of 2 PRBC (on 05/16) and 4 FFP (on 05/15 to 05/16) - Iron 16, TIBC 205, % sat 4.7, ferritin 75.3 - Monitor CBC QOD 7) Thombocytosis, improving (504)- suspect reactive to pain, surgery - Monitor CBC every other day 8) T2DM, controlled - From prior note: Admittedly non-compliant, has not taken Januvia for one year - Accuchecks q6hrs - Hypoglycemic protocol - ISS regular - HbA1c 5.8 - History of gastric bypass surgery 9) Hypercholesterolemia- untreated - LDL 38, HDL 14, Chol 104, TG 226 - History of gastric bypass surgery 10) Hx of HTN, controlled- since gastric bypass has not taken meds - Metoprolol 5 mg IV q6hrs 11) Hx of Obesity, resolved - s/p gastric bypass surgery in 2013 12) Hx of Asthma - Atrovent q6hrs 13) Nicotine use disorder - From prior note: 1ppd x 20 yrs, 1/2 ppd x 3 yrs - Nicoderm 1 patch TD QD 14) Prophylaxis - Hydrocortisone 1% Cream topical TID for Right Upper Inner Arm macular rash- improved - Vitamin A&D topical q8hrs PRN for dry lips - Saliva substitute q6hrs PRN for dry mouth - IVF: not indicated - VTE ppx: Lovenox 40 mg SC daily, SCDs - GI ppx: Protonix 40 mg IV BID, Florastor BID - Diet: feeds via gastrostomy - Osmolite (temporary Ojeda in place)- managed by surgery - Code status: full code Dispo: awaiting follow-up surgery and surgical team's recs, will talk to senior treasury consultant for number for Dr. Bosch to contact. <Doretha Turk V - Last Filed: 06/06/18 22:50> Objective - Vital Signs/Intake and Output Vital Signs (last 24 hours): Temp Pulse Resp BP Pulse Ox 98.4 F 110 H 20 121/86 97 06/06/18 15:00 06/06/18 16:00 06/06/18 15:00 06/06/18 15:00 06/06/18 15:00 Intake and Output: 06/06/18 06/07/18 18:59 06:59 Intake Total 540 Output Total 0 Balance 540 - Medications Medications: Current Medications Acetaminophen (Tylenol 650mg/20.3ml Solution Ud) 975 mg GT Q8 [facility] Last Admin: 06/06/18 21:50 Dose: 975 mg Cholestyramine Resin (Questran) 4 gm PO BID [facility] Last Admin: 06/06/18 18:10 Dose: 4 gm Dextrose (Dextrose 50% Inj) 0 ml IV STAT PRN; Protocol PRN Reason: Hypoglycemia Protocol Last Admin: 05/16/18 23:40 Dose: 50 ml Dextrose (Glutose 15) 0 gm PO ONCE PRN; Protocol PRN Reason: Hypoglycemia Protocol Diphenhydramine HCl (Benadryl) 25 mg IVP HS PRN PRN Reason: Insomnia Last Admin: 06/06/18 21:50 Dose: 25 mg Enoxaparin Sodium (Lovenox) 40 mg SC DAILY [facility] Last Admin: 06/06/18 10:44 Dose: 40 mg Ergocalciferol (Drisdol 50,000 Intl Units Cap) 1 cap PO Q7D [facility] Stop: 07/20/18 10:31 Last Admin: 06/01/18 12:13 Dose: 1 cap Escitalopram Oxalate (Lexapro) 10 mg GT DAILY [facility] Last Admin: 06/06/18 10:44 Dose: 10 mg Glucagon (Glucagen Diagnostic Kit) 0 mg IM STAT PRN; Protocol PRN Reason: Hypoglycemia Protocol Hydrocortisone (Cortizone 1% Cream) 0 gm TOP TID PRN PRN Reason: Rash Hydromorphone HCl (Dilaudid) 1.5 mg IVP Q3 PRN PRN Reason: Pain, SEVERE (8-10) Last Admin: 06/06/18 19:46 Dose: 1.5 mg Metronidazole (Flagyl) 500 mg in 100 mls @ 100 mls/hr IVPB Q8H [facility] PRN Reason: Protocol Last Admin: 06/06/18 19:47 Dose: 100 mls/hr Ciprofloxacin (Cipro 400mg/200ml Dsw) 400 mg in 200 mls @ 133 mls/hr IVPB Q12H [facility] PRN Reason: Protocol Last Admin: 06/06/18 13:47 Dose: 133 mls/hr Insulin Human Regular (Novolin R) 0 unit SC Q6 [facility] PRN Reason: Protocol Last Admin: 06/06/18 18:15 Dose: Not Given Ipratropium [place] (Atrovent) 0.5 mg IH RQ6 [facility] Last Admin: 06/06/18 20:15 Dose: 0.5 mg Lactobacillus Acidophilus (Bacid Acidophilus) 1 cap PEG BID [facility] Last Admin: 06/06/18 18:13 Dose: 1 cap Loperamide HCl (Imodium) 1 mg PO Q2H PRN PRN Reason: Diarrhea Last Admin: 06/06/18 18:11 Dose: 1 mg Lorazepam (Ativan) 1 mg IVP BID [facility] Last Admin: 06/06/18 18:11 Dose: 1 mg Metoprolol Tartrate (Lopressor) 5 mg IVP Q6H [facility] Last Admin: 06/06/18 21:56 Dose: Not Given Nicotine (Nicoderm Cq) 1 patch TD DAILY [facility] Last Admin: 06/06/18 10:44 Dose: 1 patch Nystatin (Mycostatin Cream) 0 ea TOP TID [facility] Last Admin: 06/06/18 18:12 Dose: 1 applic Ondansetron HCl (Zofran Inj) 4 mg IVP Q6H PRN PRN Reason: Nausea/Vomiting Last Admin: 06/06/18 18:44 Dose: 4 mg Pantoprazole Sodium (Protonix Inj) 40 mg IVP DAILY [facility] Last Admin: 06/06/18 10:42 Dose: 40 mg Saliva Substitute (Mouth Kote 236 Ml) 0 ml MM Q6 PRN PRN Reason: Dry mouth Vitamin A (Vitamin A & D Oint Ud Foilpak) 1 ea TOP Q8 PRN PRN Reason: dry lips Last Admin: 05/20/18 11:10 Dose: 1 ea - Labs Labs: 06/05/18 07:44 06/05/18 07:44 PT 16.0 SECONDS (9.7-12.2) H 05/26/18 06:32 INR 1.5 05/26/18 06:32 APTT 33 SECONDS (21-34) 05/25/18 06:16 Assessment and Plan (1) Ischemic bowel disease Status: Acute (2) Obesity (BMI 30-39.9) Status: Acute (3) Small bowel obstruction Status: Acute (4) Prophylactic measure Status: Acute Attending/Attestation - Attestation I have personally seen and examined this patient.: Yes I have fully participated in the care of the patient.: Yes I have reviewed all pertinent clinical information, including history, physical exam and plan: Yes Notes (Text): Patient seen, examined and case discussed with day-time resident. Patient seen this morning. Patient reports diarrhea has improved, reports only 4 episodes of diarrhea. Patient reports drainage noted under the wound vac; spoke with nurseVasquez noted surgery team is aware. No events noted over night. Patient is on Ciprofloxacin for incisional wound infection since 06/03/18. We are awaiting pending Vitamin Studies in attempt to nutritionally optimize the patient. Note: patient on exam, was complaining of left Ear pain, localized on mastoid process and exacerbated upon bruxism. Patient notes history of TMJ dysfunction. Assessment/Plan (1) Ischemic bowel disease Assessment & Plan: * Dr. Harley (surgery) on the case-->help appreciated * Preoperative/intraoperative/postoperative management per surgery * wound vac to continuous suction and following output--will change on Wednesday * Following Bariatric surgeon (Dr. Mccray) recommendations--current recommending no catholic of continuity operation until 5 weeks after most recent surgery--patient needs to fully medically optimized prior to OR * Current drainage from mildine incision possibly d/t leak of tube feed contents from around gastrostomy tube vs fistula--wound vac in place * Dr. Alvarado (GI) on the case-->help appreciated * Dr. Rivera (ID) on the case-->help appreciated * Brief summary of: * Patient has had 2 bloody bowel movements started 05/14/18. Patient's rectal: blood. She had reported abdominal pain has worsening since night of admission. Patient required emergent surgical intervention on 05/14/18 and transferred to ICU. Per operative note (05/14/18): Diagnostic laparoscopy, Exploratory laparotomy , Reduction of internal hernia, Lysis of adhesions, Drainage of abdominal collections, temporary abdominal closure, EGD * Ischemia of yenni limb, internal hernia. Naveed drain stitched to distal common limb * Patient underwent surgery again on 05/16/18.Re-exploration, Small bowel resection of ileum, small bowel resection of Yenni limb with gastrojejunostomy, reversal of bypass, primary anastomosis of ileum-ileum, ileum-ileum, and ileum- jejunum, Gastrostomy tube in bypassed stomach, EGD. Patient extubated 05/16/18. Patient is pending surgery intervention to restore GI motility in 5 weeks pending nutritional status. Measure vitamin levels and replace as needed * Vit D <12.8- vit D 50,000 units q1wk x8 wks * Prealbumin 18.1 * B12 707 * Folate 12.6 * F/u A, B1, B6, E-->pending * Drains included: NGT Tube in place, Ojeda in place of gastrostomy tube, left min removed 05/25/18; right min was removed 05/23/18; no ojeda; wound vac placed on * IV abx: * Flagyl 500mg IVPB Q8H (active since 05/15/18)-->Per ID to continue given diarrhea. * Cultures: * Peritoneal Fluid : Pseudomonas Aeruginosa sensitive to Meropenem (05/15-05/27) * Wound Culture (05/23): Yudith Albican--->Diflucan since 05/22/18 until 05/30/18 * Incision site 05/31: Enterococcus faecalis, Acinetobacter baumannii---> Ciprofloxacin 400mg IVPB Q12H (active since 06/03/18) * Blood culture (05/15/18): no growth after 5 days X2 * Blood culture (05/22/18): no growth after 5 days X2 * Urine culture: no growth * PRNS: * Tylenol 975 mg liq q8hrs * Dilaudid 1.5 mg IV q3hrs PRN * Zofran 4mg IV q6hrs PRN * Ativan 1mg IV BID anxiety-->per psych * Diarrhea * Patient is Questran 4gm PO BID * Patient is on Flagyl to cover for C. Dif. C. Dif Negative X3 Status: Acute (2) Small bowel obstruction Assessment & Plan: * Secondary to hernia * Further details noted in #1 Status: Acute (3) Obesity (BMI 30-39.9) Assessment & Plan: * s/p gastric bypass surgery in 2013 * Operative note (2013): Yenni-en-Y gastric bypass surgery * Given nature of ischemic bowel affecting portioning of the gastric limb, she will need to wait at least 5 weeks to restoring GI motility when she is nutritionally optimized Status: Acute (4) Status post gastric bypass for obesity Assessment & Plan: * status post gastric bypass 2013 * Operative note (2013): Yenni-en-Y gastric bypass surgery * Patient noncomplaint with following up postoperative. Status: Acute (5) History of Asthma Assessment & Plan: * Patient not in acute exacerbation prior to OR * Atrovent Q6H (6) Diabetes Mellitus (Type 2); controlled Assessment & Plan: * From prior note: * Admittedly non-compliant - has not taken Januvia for one year * Accuchecks Q6H * Hypoglycemic protocol * HbA1c - 6.3 (03/10/17) * hgba1c: 5.8 * History of gastric bypass surgery (8) Hx of HTN (hypertension) Assessment & Plan: * Since Gastric Bypass has not taken meds (9) Hx of Hypothyroid Assessment & Plan: * From prior note: * Pt admits non-compliance (10) Hypercholesterolemia Assessment & Plan: * From prior note: * Pt not taking meds * LDL 138, HDL 67, Tchol 220, Trig 112 * History of gastric bypass surgery (11) Anxiety Assessment & Plan: * Psychiatry (Dr. 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 Assessment & Plan: * 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 and from my prior note from last hospitalization (13) Smoker Assessment & Plan: * From my prior note: 1ppd x 20 yrs, 1/2 ppd x 3 yrs * Nicoderm 1 patch TD patchy (14) Tachycardia Assessment & Plan: * Lopressor 5mg IVQ6H xavier (15) Prophylactic measure Assessment & Plan: * Bacid Acidophilus 1 cap PEG BID * Lovenox 40mg subqdaily for DVT ppx * PICC line 06/01/18 * protonix 40mg IV Qdaily * Vitamin A&D ointment 1 each top Q8H * NGT Tube * Ojeda in place of gastro tube * Wound vac 06/03/18 * Feed orders: * Patient is currently on Osmolite via G Tube which has the following components. * MCT Oil (benefits in situations with malabsorption and is low residue) * 1440 calories; 70 gm protein; 914 ml free water * Should at any time the patient require TPN then we can try the following options: * 83 ml/hr: 2100 tete, 100 gm protein * 63 ml/hr: 1575 tete, 75 gm protein * 20% Intrilipid every other day with either one of the TPN rates mentioned above Status: Acute Disposition: Follow-up remain Vitamin levels for repletion. f/u senior treasury consultant, monitor diarreha, f/u postoperative management with surgery.
[2018-06-06] MEDS: Lactobacillus Acidophilus 500 MU Cap PEG SCH ×2 (10:44→18:13)
[2018-06-06] MEDS: Enoxaparin 40 mg Syringe SC SCH (10:44)
[2018-06-06] MEDS: Cholestyramine 4 gm/Pkt UD PO SCH ×2 (10:44→18:10)
[2018-06-06] MEDS: Nystatin 100,000 Units/gm Cream(15 gm) TOP SCH ×4 (10:45→18:12)
[2018-06-06] MEDS: Loperamide Hydrochloride 1 mg/5 ml Cup PO PRN ×2 (11:26→18:11)
--- NOTE | 2018-06-06 16:40 | CP.PCM.PN ---
<Maggie Dailey - Last Filed: 06/06/18 16:40> Subjective - Date & Time of Evaluation Date of Evaluation: 06/06/18 Time of Evaluation: 07:00 - Subjective Subjective: GENERAL SURGERY PROGRESS NOTE FOR DR. TIAN Patient seen and examined at bedside. She states that she only had 1 BM overnight. Denies nausea or vomiting. Wound vac in place but leaking. Cannister full. Will change wound vac today. Objective - Vital Signs/Intake and Output Vital Signs (last 24 hours): Temp Pulse Resp BP Pulse Ox 98.4 F 110 H 18 110/77 97 06/06/18 07:35 06/06/18 16:00 06/06/18 07:35 06/06/18 11:30 06/06/18 11:30 Intake and Output: 06/06/18 06/06/18 06:59 18:59 Intake Total 700 540 Output Total 360 0 Balance 340 540 - Medications Medications: Current Medications Acetaminophen (Tylenol 650mg/20.3ml Solution Ud) 975 mg GT Q8 [facility] Last Admin: 06/06/18 13:46 Dose: 975 mg Cholestyramine Resin (Questran) 4 gm PO BID [facility] Last Admin: 06/06/18 10:44 Dose: 4 gm Dextrose (Dextrose 50% Inj) 0 ml IV STAT PRN; Protocol PRN Reason: Hypoglycemia Protocol Last Admin: 05/16/18 23:40 Dose: 50 ml Dextrose (Glutose 15) 0 gm PO ONCE PRN; Protocol PRN Reason: Hypoglycemia Protocol Diphenhydramine HCl (Benadryl) 25 mg IVP HS PRN PRN Reason: Insomnia Last Admin: 06/05/18 22:25 Dose: 25 mg Enoxaparin Sodium (Lovenox) 40 mg SC DAILY [facility] Last Admin: 06/06/18 10:44 Dose: 40 mg Ergocalciferol (Drisdol 50,000 Intl Units Cap) 1 cap PO Q7D [facility] Stop: 07/20/18 10:31 Last Admin: 06/01/18 12:13 Dose: 1 cap Escitalopram Oxalate (Lexapro) 10 mg GT DAILY [facility] Last Admin: 06/06/18 10:44 Dose: 10 mg Glucagon (Glucagen Diagnostic Kit) 0 mg IM STAT PRN; Protocol PRN Reason: Hypoglycemia Protocol Hydrocortisone (Cortizone 1% Cream) 0 gm TOP TID PRN PRN Reason: Rash Hydromorphone HCl (Dilaudid) 1.5 mg IVP Q3 PRN PRN Reason: Pain, SEVERE (8-10) Last Admin: 06/06/18 13:43 Dose: 1.5 mg Metronidazole (Flagyl) 500 mg in 100 mls @ 100 mls/hr IVPB Q8H [facility] PRN Reason: Protocol Last Admin: 06/06/18 12:45 Dose: 100 mls/hr Ciprofloxacin (Cipro 400mg/200ml Dsw) 400 mg in 200 mls @ 133 mls/hr IVPB Q12H [facility] PRN Reason: Protocol Last Admin: 06/06/18 13:47 Dose: 133 mls/hr Insulin Human Regular (Novolin R) 0 unit SC Q6 [facility] PRN Reason: Protocol Last Admin: 06/06/18 12:17 Dose: Not Given Ipratropium [place] (Atrovent) 0.5 mg IH RQ6 [facility] Last Admin: 06/06/18 13:10 Dose: Not Given Lactobacillus Acidophilus (Bacid Acidophilus) 1 cap PEG BID [facility] Last Admin: 06/06/18 10:44 Dose: 1 cap Loperamide HCl (Imodium) 1 mg PO Q2H PRN PRN Reason: Diarrhea Last Admin: 06/06/18 11:26 Dose: 1 mg Lorazepam (Ativan) 1 mg IVP BID [facility] Last Admin: 06/06/18 10:42 Dose: 1 mg Metoprolol Tartrate (Lopressor) 5 mg IVP Q6H [facility] Last Admin: 06/06/18 10:42 Dose: 5 mg Nicotine (Nicoderm Cq) 1 patch TD DAILY [facility] Last Admin: 06/06/18 10:44 Dose: 1 patch Nystatin (Mycostatin Cream) 0 ea TOP TID [facility] Last Admin: 06/06/18 14:58 Dose: Not Given Ondansetron HCl (Zofran Inj) 4 mg IVP Q6H PRN PRN Reason: Nausea/Vomiting Last Admin: 06/06/18 11:26 Dose: 4 mg Pantoprazole Sodium (Protonix Inj) 40 mg IVP DAILY [facility] Last Admin: 06/06/18 10:42 Dose: 40 mg Saliva Substitute (Mouth Kote 236 Ml) 0 ml MM Q6 PRN PRN Reason: Dry mouth Vitamin A (Vitamin A & D Oint Ud Foilpak) 1 ea TOP Q8 PRN PRN Reason: dry lips Last Admin: 05/20/18 11:10 Dose: 1 ea - Labs Labs: 06/05/18 07:44 06/05/18 07:44 PT 16.0 SECONDS (9.7-12.2) H 05/26/18 06:32 INR 1.5 05/26/18 06:32 APTT 33 SECONDS (21-34) 05/25/18 06:16 - Constitutional Appears: Non-toxic, No Acute Distress - Respiratory Exam Respiratory Exam: NORMAL BREATHING PATTERN. absent: Respiratory Distress - Cardiovascular Exam Cardiovascular Exam: Tachycardia - GI/Abdominal Exam GI & Abdominal Exam: Soft. absent: Distended, Firm, Guarding, Rigid, Tenderness , Rebound Additional comments: Wound vac in place on suction G tube in place with tube feeds running NG tube in place - Neurological Exam Neurological Exam: Alert, Awake, Oriented x3 - Psychiatric Exam Psychiatric exam: Normal Affect - Skin Skin Exam: Dry, Normal Color Assessment and Plan - Assessment and Plan (Free Text) Assessment: 38yo F with PMHx of yenni-en-Y gastric bypass in 2014, presented with bowel ischemia secondary to internal hernia. POD#23 s/p Exploratory laparotomy, Reduction of internal hernia, DANNI, Drainage of abdominal collections, temporary abdominal closure, and EGD. POD#19 s/p Re-exploration, resection of ileum and Yenni limb including previous gastrojejunostomy, reversal of bypass, primary anastomosis of ileum-ileum, ileum -ileum, and ileum-jejunum, Gastrostomy tube in bypassed stomach, EGD Current drainage from mildine incision possibly d/t leak of tube feed contents from around gastrostomy tube vs fistula--wound vac in place Plan: - Continue to monitor labs Q2days - Continue wound vac to suction --will change today - Continue tube feeds for nutrition - Continue NGT to intermittent suction - Continue antibiotics, PRN pain medications - Encourage ambulation with PT - Dr. Harley discussed timing for re-operation with Dr. Mccray, bariatric surgeons--no yazidi of continuity operation until 5-6 weeks after most recent surgery--patient needs to fully medically/nutritionally optimized prior to OR - Discussed plan with Dr. Cricket Dailey PGY-4 <Gómez Harley B - Last Filed: 06/19/18 09:08> Objective - Vital Signs/Intake and Output Vital Signs (last 24 hours): Temp Pulse Resp BP Pulse Ox 98.8 F 99 H 20 99/66 L 97 06/19/18 07:00 06/19/18 07:00 06/19/18 07:00 06/19/18 07:00 06/19/18 07:00 Intake and Output: 06/19/18 06/19/18 06:59 18:59 Intake Total 1000 Output Total 615 Balance 385 - Medications Medications: Current Medications Acetaminophen (Tylenol 650mg/20.3ml Solution Ud) 975 mg GT Q8 PRN PRN Reason: Pain, Mild (1-3) Last Admin: 06/16/18 09:25 Dose: 975 mg Cholestyramine Resin (Questran) 4 gm PO BID [facility] Last Admin: 06/18/18 18:13 Dose: 4 gm Dextrose (Dextrose 50% Inj) 0 ml IV STAT PRN; Protocol PRN Reason: Hypoglycemia Protocol Last Admin: 05/16/18 23:40 Dose: 50 ml Dextrose (Glutose 15) 0 gm PO ONCE PRN; Protocol PRN Reason: Hypoglycemia Protocol Diphenhydramine HCl (Benadryl) 25 mg IVP QPM PRN PRN Reason: Insomnia Last Admin: 06/18/18 19:30 Dose: 25 mg Enoxaparin Sodium (Lovenox) 40 mg SC DAILY [facility] Last Admin: 06/18/18 10:01 Dose: 40 mg Ergocalciferol (Drisdol 50,000 Intl Units Cap) 1 cap PO Q7D [facility] Stop: 07/20/18 10:31 Last Admin: 06/15/18 10:40 Dose: 1 cap Escitalopram Oxalate (Lexapro) 10 mg GT DAILY [facility] Last Admin: 06/18/18 10:03 Dose: 10 mg Glucagon (Glucagen Diagnostic Kit) 0 mg IM STAT PRN; Protocol PRN Reason: Hypoglycemia Protocol Hydrocortisone (Cortizone 1% Cream) 0 gm TOP TID PRN PRN Reason: Rash Hydromorphone HCl (Dilaudid) 1.5 mg IVP Q3 PRN PRN Reason: Pain, SEVERE (8-10) Last Admin: 06/19/18 07:50 Dose: 1.5 mg Metronidazole (Flagyl) 500 mg in 100 mls @ 100 mls/hr IVPB Q8H [facility] PRN Reason: Protocol Last Admin: 06/19/18 04:34 Dose: 100 mls/hr Vancomycin HCl 1.5 gm/ Sodium (Chloride) 500 mls @ 333.333 mls/hr IVPB Q12H [facility] PRN Reason: Protocol Last Admin: 06/19/18 00:18 Dose: 333.333 mls/hr Insulin Human Regular (Novolin R) 0 unit SC Q6 [facility] PRN Reason: Protocol Last Admin: 06/19/18 06:20 Dose: Not Given Ipratropium [place] (Atrovent) 0.5 mg IH RQ6 [facility] Last Admin: 06/19/18 08:35 Dose: 0.5 mg Lactobacillus Acidophilus (Bacid Acidophilus) 1 cap PEG BID [facility] Last Admin: 06/18/18 18:13 Dose: 1 cap Loperamide HCl (Imodium) 1 mg PO Q2H PRN PRN Reason: Diarrhea Last Admin: 06/18/18 10:03 Dose: 1 mg Lorazepam (Ativan) 1 mg IVP BID [facility] Last Admin: 06/18/18 18:13 Dose: 1 mg Metoprolol Tartrate (Lopressor) 5 mg IVP Q6H [facility] Last Admin: 06/19/18 04:24 Dose: 5 mg Nicotine (Nicoderm Cq) 1 patch TD DAILY [facility] Last Admin: 06/18/18 10:01 Dose: 1 patch Ondansetron HCl (Zofran Inj) 4 mg IVP Q6H PRN PRN Reason: Nausea/Vomiting Last Admin: 06/18/18 11:50 Dose: 4 mg Pantoprazole Sodium (Protonix Susp) 40 mg PO Q24H [facility] Saliva Substitute (Mouth Kote 236 Ml) 0 ml MM Q6 PRN PRN Reason: Dry mouth Vitamin A (Vitamin A & D Oint Ud Foilpak) 1 ea TOP Q8 PRN PRN Reason: dry lips Last Admin: 05/20/18 11:10 Dose: 1 ea Vitamin E (Vitamin E 400 Units Cap) 400 intlu GT DAILY [facility] Last Admin: 06/18/18 10:40 Dose: 400 intlu - Labs Labs: 06/19/18 07:06 06/19/18 07:06 PT 14.3 SECONDS (9.7-12.2) H 06/10/18 07:05 INR 1.3 06/10/18 07:05 APTT 33 SECONDS (21-34) 05/25/18 06:16 Attending/Attestation - Attestation I have personally seen and examined this patient.: Yes I have fully participated in the care of the patient.: Yes I have reviewed all pertinent clinical information, including history, physical exam and plan: Yes Notes (Text): Pt was seen and examined at bedside Agree with above note and assessment Pt is improving clinically C.w Current mx OOB to walk Plan d.w pt in detail Risk and benefit explained in detail.
[2018-06-06] MEDS: DiphenhydrAMINE 50 mg/ml Inj IVP PRN (21:50)
[2018-06-07] MEDS: (Novolin R) Insulin Human Regular 100 units/ml vial SC SCH ×4 (00:23→17:46)
[2018-06-07] MEDS: Ciprofloxacin 400mg/200ml D5W 400 MG/200 ML BAG IVPB SCH ×2 (01:52→13:37)
[2018-06-07] MEDS: Ipratropium 0.02% Inhal Soln (0.5 mg/2.5 ml) UD IH SCH ×4 (02:44→19:16)
[2018-06-07] MEDS: metroNIDAZOLE IV 500 mg/100 ml 500 MG/100 ML BAG IVPB SCH ×3 (04:37→21:00)
[2018-06-07] MEDS: Metoprolol 1 mg/ml Inj IVP SCH ×4 (04:37→22:35)
[2018-06-07] MEDS: Acetaminophen 650mg/20.3ml solution UD GT SCH ×3 (05:51→22:43)
--- NOTE | 2018-06-07 06:20 | CP.PCM.PN ---
<Sarbjit Torres M - Last Filed: 06/07/18 20:23> Subjective - Date & Time of Evaluation Date of Evaluation: 06/07/18 Time of Evaluation: 07:45 - Subjective Subjective: PGY-1 Medicine Progress Note for Dr. Kirby Patient seen and examined at bedside. Patient is in no acute distress. Wound vac was placed 4 days ago (06/03) but it had been draining fluid since placement. Yesterday, 06/06/2018, surgical team replaced the wound vac and bandaged the incision site. Patient notes since wound vac replacement she has had no more leakage, neither from the incision site nor from the wound vac. She denies pain at the site and denies drainage at the g-tube site where ojeda is in place for feeds. She states she has continued sharp stabbing abdominal pain but it only occurs when her pain medication starts to wear off. She notes her left ear pain, that feels similar to her prior TMJ pain, is improving. She states she has not taken anything by mouth over the last 24 hours. The frequency of her bowel movements has decreased; she had 3 episodes of non-bloody diarrhea over the last 24 hours. She denies shortness of breath, chest pain, palpitations, dizziness, headaches, vision changes, constipation, cough, congestion, or sore throat. Objective - Vital Signs/Intake and Output Vital Signs (last 24 hours): Temp Pulse Resp BP Pulse Ox 98.5 F 115 H 20 117/75 96 06/07/18 04:00 06/07/18 04:00 06/07/18 04:00 06/07/18 04:00 06/07/18 04:00 Intake and Output: 06/06/18 06/07/18 18:59 06:59 Intake Total 540 Output Total 0 600 Balance 540 -600 - Medications Medications: Current Medications Acetaminophen (Tylenol 650mg/20.3ml Solution Ud) 975 mg GT Q8 [facility] Last Admin: 06/07/18 05:51 Dose: 975 mg Cholestyramine Resin (Questran) 4 gm PO BID [facility] Last Admin: 06/06/18 18:10 Dose: 4 gm Dextrose (Dextrose 50% Inj) 0 ml IV STAT PRN; Protocol PRN Reason: Hypoglycemia Protocol Last Admin: 05/16/18 23:40 Dose: 50 ml Dextrose (Glutose 15) 0 gm PO ONCE PRN; Protocol PRN Reason: Hypoglycemia Protocol Diphenhydramine HCl (Benadryl) 25 mg IVP HS PRN PRN Reason: Insomnia Last Admin: 06/06/18 21:50 Dose: 25 mg Enoxaparin Sodium (Lovenox) 40 mg SC DAILY [facility] Last Admin: 06/06/18 10:44 Dose: 40 mg Ergocalciferol (Drisdol 50,000 Intl Units Cap) 1 cap PO Q7D [facility] Stop: 07/20/18 10:31 Last Admin: 06/01/18 12:13 Dose: 1 cap Escitalopram Oxalate (Lexapro) 10 mg GT DAILY [facility] Last Admin: 06/06/18 10:44 Dose: 10 mg Glucagon (Glucagen Diagnostic Kit) 0 mg IM STAT PRN; Protocol PRN Reason: Hypoglycemia Protocol Hydrocortisone (Cortizone 1% Cream) 0 gm TOP TID PRN PRN Reason: Rash Hydromorphone HCl (Dilaudid) 1.5 mg IVP Q3 PRN PRN Reason: Pain, SEVERE (8-10) Last Admin: 06/07/18 04:36 Dose: 1.5 mg Metronidazole (Flagyl) 500 mg in 100 mls @ 100 mls/hr IVPB Q8H [facility] PRN Reason: Protocol Last Admin: 06/07/18 04:37 Dose: 100 mls/hr Ciprofloxacin (Cipro 400mg/200ml Dsw) 400 mg in 200 mls @ 133 mls/hr IVPB Q12H [facility] PRN Reason: Protocol Last Admin: 06/07/18 01:52 Dose: 133 mls/hr Insulin Human Regular (Novolin R) 0 unit SC Q6 [facility] PRN Reason: Protocol Last Admin: 06/07/18 00:23 Dose: Not Given Ipratropium [place] (Atrovent) 0.5 mg IH RQ6 [facility] Last Admin: 06/07/18 02:44 Dose: Not Given Lactobacillus Acidophilus (Bacid Acidophilus) 1 cap PEG BID [facility] Last Admin: 06/06/18 18:13 Dose: 1 cap Loperamide HCl (Imodium) 1 mg PO Q2H PRN PRN Reason: Diarrhea Last Admin: 06/06/18 18:11 Dose: 1 mg Lorazepam (Ativan) 1 mg IVP BID [facility] Last Admin: 06/06/18 18:11 Dose: 1 mg Metoprolol Tartrate (Lopressor) 5 mg IVP Q6H [facility] Last Admin: 06/07/18 04:37 Dose: 5 mg Nicotine (Nicoderm Cq) 1 patch TD DAILY [facility] Last Admin: 06/06/18 10:44 Dose: 1 patch Nystatin (Mycostatin Cream) 0 ea TOP TID [facility] Last Admin: 06/06/18 18:12 Dose: 1 applic Ondansetron HCl (Zofran Inj) 4 mg IVP Q6H PRN PRN Reason: Nausea/Vomiting Last Admin: 06/06/18 18:44 Dose: 4 mg Pantoprazole Sodium (Protonix Inj) 40 mg IVP DAILY [facility] Last Admin: 06/06/18 10:42 Dose: 40 mg Saliva Substitute (Mouth Kote 236 Ml) 0 ml MM Q6 PRN PRN Reason: Dry mouth Vitamin A (Vitamin A & D Oint Ud Foilpak) 1 ea TOP Q8 PRN PRN Reason: dry lips Last Admin: 05/20/18 11:10 Dose: 1 ea - Labs Labs: 06/05/18 07:44 06/05/18 07:44 PT 16.0 SECONDS (9.7-12.2) H 05/26/18 06:32 INR 1.5 05/26/18 06:32 APTT 33 SECONDS (21-34) 05/25/18 06:16 - Constitutional Appears: Non-toxic, No Acute Distress - Head Exam Head Exam: ATRAUMATIC, NORMAL INSPECTION, NORMOCEPHALIC - Eye Exam Eye Exam: EOMI, Normal appearance - ENT Exam ENT Exam: Mucous Membranes Moist - Respiratory Exam Respiratory Exam: Clear to Ausculation Bilateral, NORMAL BREATHING PATTERN. absent: Rales, Rhonchi, Wheezes - GI/Abdominal Exam GI & Abdominal Exam: Guarding, Normal Bowel Sounds. absent: Distended, Firm, Rigid Additional comments: Wound vac in place at inferior edge of surgical incision with packing overlying remainder of surgical incision; no surrounding erythema, edema or tenderness; Ojeda in place at gastrostomy site with no surrounding erythema, edema, or tenderness. No suprapubic tenderness, no distention or guarding - Extremities Exam Extremities Exam: Normal Inspection. absent: Calf Tenderness, Pedal Edema, Tenderness Additional comments: PICC line in place to right upper extremity without surrounding edema, erythema or ecchymotic changes - Neurological Exam Neurological Exam: Alert, Awake, Oriented x3 - Psychiatric Exam Psychiatric exam: Normal Affect, Normal Mood - Skin Skin Exam: Dry, Intact, Normal Color, Warm Assessment and Plan - Assessment and Plan (Free Text) Assessment: Patient is a 37 year old female with a history of gastric bypass in 2013 who presented with several abdominal pain. She was found to have bowel ischemia 2/2 internal hernia. Patient underwent ex lap on 05/14 and again on 05/16. She will need a repeat surgery 4-6 weeks from the first. She currently has an NGT, is utilizing a ojeda at her gastrostomy site for nutrition/meds. Wound vac is in place over the incision site on 06/03, changed yesterday 06/06, with no more leakage at site, has a R arm PICC for Abx: 1) Ischemic bowel disease- 2/2 to internal hernias producing bowel obstruction - Summary of course: Patient required emergent surgical intervention on 05/14/18 and transferred to ICU. Patient had a second surgery on 05/16/18. - Per operative note (05/14/18): Diagnostic laparoscopy, Exploratory lapar otomy, Reduction of internal hernia, Lysis of adhesions, Drainage of abdominal collections, temporary abdominal closure, EGD. Ischemia of yenni limb, internal hernia. Naveed drain stitched to distal common limb - Per operative note (05/16/18): Re-exploration, Small bowel resection of ileum, small bowel resection of Yenni limb with gastrojejunostomy, reversal of bypass, primary anastomosis of ileum-ileum, ileum-ileum, and ileum- jejunum, Gastrostomy tube in bypassed stomach, EGD - Dr. Harley (surgery) on the case - Preoperative/intraoperative/postoperative management per surgery - wound vac to continuous suction and following output (changed on 06/06/18) - Following Bariatric surgeon (Dr. Mccray) recs--current recs no samaritan of continuity operation until 5 weeks after 05/16 surgery - Current drainage from mildine incision possibly d/t leak of tube feed contents from around gastrostomy tube vs fistula--wound vac in place - Current drains include: NGT (have on continuos suction), gastrostomy tube- temporary Ojeda in place after G-tube "fell out" on 05/30, wound vac replaced on 06/06/2018 - Cultures: - Peritoneal Fluid (05/14/18): Pseudomonas Aeruginosa sensitive to Meropenem - Wound Culture (05/23/18): Yudith albicans - Blood culture (05/15/18, 05/22/18): no growth - Urine culture (05/22/18): no growth - Incision site 05/31: Enterococcus faecalis, Acinetobacter baumannii Abxs: - Cipro 400 mg IV q12hrs (started 06/02) - Flagyl 500mg IVPB Q8H (active since 05/15/18) - Nystatin cream TID for G-tube site (Yudith) - Discontinued Meropenem 1 gm IVPB Q8H (active since 05/15/18-05/27/18) Measure vitamin levels and replace as needed - Vit D <12.8- vit D 50,000 units q1wk x8 wks - Prealbumin 18.1 - B12 707 - Folate 12.6 - F/u A, B1, B6, E-->pending PRN meds: - Tylenol 975 mg liq q8hrs - Dilaudid 1.5 mg IV q3hrs PRN - Zofran 4mg IV q6hrs PRN - PT consulted- working with patient, current rec TCU following discharge 2) Tachycardia, persistent (110s-130s)- possibly etiologies include pain, infection, anxiety - She is being treated for Left G Tube fluid infection. She has been started on Ativan PRN. She has Dilaudid on board to be used PRN. - Metoprolol tartrate 5 mg IV q6hrs with holding parameters (SBP <100, HR <60) 3) Hypokalemia - AM K+ 3.2 - Replenished w/ 40 meq KCl - Will F/u AM labs 4) Leukocytosis, improved (8.9)- likely 2/2 to ischemic bowel 2/2 to small bowel obstruction and surgeries - Cultures: Peritoneal Fluid (05/14/18): Pseudomonas Aeruginosa sensitive to Meropenem Wound Culture (05/23/18): Yudith albicans Blood culture (05/15/18, 05/22/18): no growth Urine culture (05/22/18): no growth - Wound Cx from incision site 05/31: Enterococcus faecalis, Acinetobacter baumannii, on ciprofloxacin 400 mg (started 06/02) - Monitor CBC QOD 5) Diarrhea, acute, improving- suspect 2/2 PO intake by pt - C. Diff (05/22, 05/24, 05/28): negative - Stool O&P (05/25/18): negative - Stool leukocytes (05/25/18): negative - per ID continue flagyl for 2-3 additional days due to leak around wound vac 6) Anxiety - Material Requirements Planning Manager consulted- pt initially refused but then accepted - Psychiatry consulted (Dr. Reyez)- managing Ativan - Ativan 1 mg IV BID - Lexapro 10 mg PO daily (started 05/31) 7) Anemia, acute, stable (Hgb 8.3)- pt denies blood in stool - Patient received a total of 2 PRBC (on 05/16) and 4 FFP (on 05/15 to 05/16) - Iron 16, TIBC 205, % sat 4.7, ferritin 75.3 - Monitor CBC QOD 8) Thombocytosis, improving (504)- suspect reactive to pain, surgery - Monitor CBC every other day 9) T2DM, controlled - From prior note: Admittedly non-compliant, has not taken Januvia for one year - Accuchecks q6hrs - Hypoglycemic protocol - ISS regular - HbA1c 5.8 - History of gastric bypass surgery 10) Hypercholesterolemia- untreated - LDL 38, HDL 14, Chol 104, TG 226 - History of gastric bypass surgery 11) Hx of HTN, controlled- since gastric bypass has not taken meds - Metoprolol 5 mg IV q6hrs 12) Hx of Obesity, resolved - s/p gastric bypass surgery in 2013 13) Hx of Asthma - Atrovent q6hrs 14) Nicotine use disorder - From prior note: 1ppd x 20 yrs, 1/2 ppd x 3 yrs - Nicoderm 1 patch TD QD 15) Prophylaxis - Hydrocortisone 1% Cream topical TID for Right Upper Inner Arm macular rash- improved - Vitamin A&D topical q8hrs PRN for dry lips - Saliva substitute q6hrs PRN for dry mouth - IVF: not indicated - VTE ppx: Lovenox 40 mg SC daily, SCDs - GI ppx: Protonix 40 mg IV BID, Florastor BID - Diet: feeds via gastrostomy - Osmolite (temporary Ojeda in place)- managed by surgery - Code status: full code Dispo: awaiting follow-up surgery and surgical team's recs. <Wesley Kirby - Last Filed: 08/04/18 13:43> Attending/Attestation - Attestation I have personally seen and examined this patient.: Yes I have fully participated in the care of the patient.: Yes I have reviewed all pertinent clinical information, including history, physical exam and plan: Yes Notes (Text): Ischemic bowel disease 2/2 internal hernia producing bowel obstruction Chronic pain syndrome Diarrhea awaiting final decision re surgery to connect stomach with bowel based on nutritional status to be determined by surgery
[2018-06-07 06:49] LABS: BASO % 0.5 % (0.0-2.0); EOS # 0.3 K/uL (0.0-0.7); HEMOGLOBIN 8.2 g/dL (11.0-16.0); LYMPH # 1.7 K/uL (1.0-4.3); LYMPH % 26.3 % (20.0-40.0); MEAN CELL VOLUME 85.9 fL (81.0-99.0); MEAN CORPUSCULAR HEMOGLOBIN 28.3 pg (27.0-31.0); MEAN CORPUSCULAR HGB CONC 32.9 g/dL (33.0-37.0); MEAN PLATELET VOLUME 7.7 fL (7.2-11.7); MONO # 0.8 K/uL (0.0-0.8); MONO % 12.2 % (0.0-10.0); NEUT # 3.7 K/uL (1.8-7.0); NRBC % 0.1 % (0.0-2.0); RBC 2.88 Mil/uL (3.80-5.20); RED CELL DISTRIBUTION WIDTH 17.2 % (11.5-14.5); WHITE BLOOD COUNT 6.5 K/uL (4.8-10.8)
[2018-06-07 07:42] LABS: ALB/GLOB RATIO 0.9 (1.0-2.1); ALBUMIN 2.5 g/dL (3.5-5.0); ALT/SGPT 21 U/L (9-52); AST/SGOT 11 U/L (14-36); BLOOD UREA NITROGEN 6 mg/dL (7-17); CALCIUM 7.9 mg/dl (8.6-10.4); GFR NON-AFRICAN AMERICAN > 60
--- NOTE | 2018-06-07 07:51 | CP.PCM.PN ---
<Maggie Dailey - Last Filed: 06/07/18 08:06> Subjective - Date & Time of Evaluation Date of Evaluation: 06/07/18 Time of Evaluation: 07:00 - Subjective Subjective: GENERAL SURGERY PROGRESS NOTE FOR DR. TIAN Patient seen and examined at bedside. Wound vac was changed yesterday because it was leaking. She denies nausea or vomiting. Still some diarrhea. Objective - Vital Signs/Intake and Output Vital Signs (last 24 hours): Temp Pulse Resp BP Pulse Ox 98.5 F 115 H 20 117/75 96 06/07/18 04:00 06/07/18 04:00 06/07/18 04:00 06/07/18 04:00 06/07/18 04:00 Intake and Output: 06/07/18 06/07/18 06:59 18:59 Intake Total 500 Output Total 615 Balance -115 - Medications Medications: Current Medications Acetaminophen (Tylenol 650mg/20.3ml Solution Ud) 975 mg GT Q8 [facility] Last Admin: 06/07/18 05:51 Dose: 975 mg Cholestyramine Resin (Questran) 4 gm PO BID [facility] Last Admin: 06/06/18 18:10 Dose: 4 gm Dextrose (Dextrose 50% Inj) 0 ml IV STAT PRN; Protocol PRN Reason: Hypoglycemia Protocol Last Admin: 05/16/18 23:40 Dose: 50 ml Dextrose (Glutose 15) 0 gm PO ONCE PRN; Protocol PRN Reason: Hypoglycemia Protocol Diphenhydramine HCl (Benadryl) 25 mg IVP HS PRN PRN Reason: Insomnia Last Admin: 06/06/18 21:50 Dose: 25 mg Enoxaparin Sodium (Lovenox) 40 mg SC DAILY [facility] Last Admin: 06/06/18 10:44 Dose: 40 mg Ergocalciferol (Drisdol 50,000 Intl Units Cap) 1 cap PO Q7D [facility] Stop: 07/20/18 10:31 Last Admin: 06/01/18 12:13 Dose: 1 cap Escitalopram Oxalate (Lexapro) 10 mg GT DAILY [facility] Last Admin: 06/06/18 10:44 Dose: 10 mg Glucagon (Glucagen Diagnostic Kit) 0 mg IM STAT PRN; Protocol PRN Reason: Hypoglycemia Protocol Hydrocortisone (Cortizone 1% Cream) 0 gm TOP TID PRN PRN Reason: Rash Hydromorphone HCl (Dilaudid) 1.5 mg IVP Q3 PRN PRN Reason: Pain, SEVERE (8-10) Last Admin: 06/07/18 07:26 Dose: 1.5 mg Metronidazole (Flagyl) 500 mg in 100 mls @ 100 mls/hr IVPB Q8H [facility] PRN Reason: Protocol Last Admin: 06/07/18 04:37 Dose: 100 mls/hr Ciprofloxacin (Cipro 400mg/200ml Dsw) 400 mg in 200 mls @ 133 mls/hr IVPB Q12H [facility] PRN Reason: Protocol Last Admin: 06/07/18 01:52 Dose: 133 mls/hr Insulin Human Regular (Novolin R) 0 unit SC Q6 [facility] PRN Reason: Protocol Last Admin: 06/07/18 06:21 Dose: Not Given Ipratropium [place] (Atrovent) 0.5 mg IH RQ6 [facility] Last Admin: 06/07/18 02:44 Dose: Not Given Lactobacillus Acidophilus (Bacid Acidophilus) 1 cap PEG BID [facility] Last Admin: 06/06/18 18:13 Dose: 1 cap Loperamide HCl (Imodium) 1 mg PO Q2H PRN PRN Reason: Diarrhea Last Admin: 06/06/18 18:11 Dose: 1 mg Lorazepam (Ativan) 1 mg IVP BID [facility] Last Admin: 06/06/18 18:11 Dose: 1 mg Metoprolol Tartrate (Lopressor) 5 mg IVP Q6H [facility] Last Admin: 06/07/18 04:37 Dose: 5 mg Nicotine (Nicoderm Cq) 1 patch TD DAILY [facility] Last Admin: 06/06/18 10:44 Dose: 1 patch Nystatin (Mycostatin Cream) 0 ea TOP TID [facility] Last Admin: 06/06/18 18:12 Dose: 1 applic Ondansetron HCl (Zofran Inj) 4 mg IVP Q6H PRN PRN Reason: Nausea/Vomiting Last Admin: 06/06/18 18:44 Dose: 4 mg Pantoprazole Sodium (Protonix Inj) 40 mg IVP DAILY [facility] Last Admin: 06/06/18 10:42 Dose: 40 mg Saliva Substitute (Mouth Kote 236 Ml) 0 ml MM Q6 PRN PRN Reason: Dry mouth Vitamin A (Vitamin A & D Oint Ud Foilpak) 1 ea TOP Q8 PRN PRN Reason: dry lips Last Admin: 05/20/18 11:10 Dose: 1 ea - Labs Labs: 06/07/18 05:20 06/07/18 05:20 PT 16.0 SECONDS (9.7-12.2) H 05/26/18 06:32 INR 1.5 05/26/18 06:32 APTT 33 SECONDS (21-34) 05/25/18 06:16 - Constitutional Appears: Non-toxic, No Acute Distress - Head Exam Head Exam: ATRAUMATIC, NORMAL INSPECTION - Eye Exam Eye Exam: EOMI, Normal appearance - Respiratory Exam Respiratory Exam: NORMAL BREATHING PATTERN. absent: Respiratory Distress - Cardiovascular Exam Cardiovascular Exam: Tachycardia (baseline) - GI/Abdominal Exam GI & Abdominal Exam: Soft. absent: Distended, Firm, Guarding, Rigid, Tenderness , Rebound Additional comments: Wound vac in place on suction - Neurological Exam Neurological Exam: Alert, Awake, Oriented x3 - Psychiatric Exam Psychiatric exam: Normal Affect, Normal Mood - Skin Skin Exam: Dry, Normal Color, Warm Assessment and Plan - Assessment and Plan (Free Text) Assessment: 38yo F with PMHx of [id number] gastric bypass in 2014, presented with bowel ischemia secondary to internal hernia. POD#24 s/p Exploratory laparotomy, Reduction of internal hernia, DANNI, Drainage of abdominal collections, temporary abdominal closure, and EGD. POD#20 s/p Re-exploration, resection of ileum and Yenni limb including previous gastrojejunostomy, reversal of bypass, primary anastomosis of ileum-ileum, ileum -ileum, and ileum-jejunum, Gastrostomy tube in bypassed stomach, EGD Current drainage from mildine incision possibly d/t leak of tube feed contents from around gastrostomy tube vs fistula--wound vac in place Plan: - Continue to monitor labs Q2days - Continue wound vac to suction --changed yesterday - Continue tube feeds for nutrition - Continue NGT to intermittent suction - Continue antibiotics, PRN pain medications - Encourage ambulation with PT - Dr. Harley discussed timing for re-operation with Dr. Mccray, bariatric surgeons--no advent of continuity operation until 5-6 weeks after most recent surgery--patient needs to fully medically/nutritionally optimized prior to OR - Discussed plan with Dr. Cricket Dailey PGY-4 <Gómez Harley - Last Filed: 06/19/18 09:10> Objective - Vital Signs/Intake and Output Vital Signs (last 24 hours): Temp Pulse Resp BP Pulse Ox 98.8 F 99 H 20 99/66 L 97 06/19/18 07:00 06/19/18 07:00 06/19/18 07:00 06/19/18 07:00 06/19/18 07:00 Intake and Output: 06/19/18 06/19/18 06:59 18:59 Intake Total 1000 Output Total 615 Balance 385 - Medications Medications: Current Medications Acetaminophen (Tylenol 650mg/20.3ml Solution Ud) 975 mg GT Q8 PRN PRN Reason: Pain, Mild (1-3) Last Admin: 06/16/18 09:25 Dose: 975 mg Cholestyramine Resin (Questran) 4 gm PO BID [facility] Last Admin: 06/19/18 09:07 Dose: 4 gm Dextrose (Dextrose 50% Inj) 0 ml IV STAT PRN; Protocol PRN Reason: Hypoglycemia Protocol Last Admin: 05/16/18 23:40 Dose: 50 ml Dextrose (Glutose 15) 0 gm PO ONCE PRN; Protocol PRN Reason: Hypoglycemia Protocol Diphenhydramine HCl (Benadryl) 25 mg IVP QPM PRN PRN Reason: Insomnia Last Admin: 06/18/18 19:30 Dose: 25 mg Enoxaparin Sodium (Lovenox) 40 mg SC DAILY [facility] Last Admin: 06/19/18 09:08 Dose: 40 mg Ergocalciferol (Drisdol 50,000 Intl Units Cap) 1 cap PO Q7D [facility] Stop: 07/20/18 10:31 Last Admin: 06/15/18 10:40 Dose: 1 cap Escitalopram Oxalate (Lexapro) 10 mg GT DAILY [facility] Last Admin: 06/19/18 09:07 Dose: 10 mg Glucagon (Glucagen Diagnostic Kit) 0 mg IM STAT PRN; Protocol PRN Reason: Hypoglycemia Protocol Hydrocortisone (Cortizone 1% Cream) 0 gm TOP TID PRN PRN Reason: Rash Hydromorphone HCl (Dilaudid) 1.5 mg IVP Q3 PRN PRN Reason: Pain, SEVERE (8-10) Last Admin: 06/19/18 07:50 Dose: 1.5 mg Metronidazole (Flagyl) 500 mg in 100 mls @ 100 mls/hr IVPB Q8H [facility] PRN Reason: Protocol Last Admin: 06/19/18 04:34 Dose: 100 mls/hr Vancomycin HCl 1.5 gm/ Sodium (Chloride) 500 mls @ 333.333 mls/hr IVPB Q12H [facility] PRN Reason: Protocol Last Admin: 06/19/18 00:18 Dose: 333.333 mls/hr Insulin Human Regular (Novolin R) 0 unit SC Q6 [facility] PRN Reason: Protocol Last Admin: 06/19/18 06:20 Dose: Not Given Ipratropium [place] (Atrovent) 0.5 mg IH RQ6 [facility] Last Admin: 06/19/18 08:35 Dose: 0.5 mg Lactobacillus Acidophilus (Bacid Acidophilus) 1 cap PEG BID [facility] Last Admin: 06/19/18 09:07 Dose: 1 cap Loperamide HCl (Imodium) 1 mg PO Q2H PRN PRN Reason: Diarrhea Last Admin: 06/18/18 10:03 Dose: 1 mg Lorazepam (Ativan) 1 mg IVP BID [facility] Last Admin: 06/19/18 09:08 Dose: 1 mg Metoprolol Tartrate (Lopressor) 5 mg IVP Q6H [facility] Last Admin: 06/19/18 04:24 Dose: 5 mg Nicotine (Nicoderm Cq) 1 patch TD DAILY [facility] Last Admin: 06/19/18 09:07 Dose: 1 patch Ondansetron HCl (Zofran Inj) 4 mg IVP Q6H PRN PRN Reason: Nausea/Vomiting Last Admin: 06/18/18 11:50 Dose: 4 mg Pantoprazole Sodium (Protonix Susp) 40 mg PO Q24H [facility] Last Admin: 06/19/18 09:08 Dose: 40 mg Saliva Substitute (Mouth Kote 236 Ml) 0 ml MM Q6 PRN PRN Reason: Dry mouth Vitamin A (Vitamin A & D Oint Ud Foilpak) 1 ea TOP Q8 PRN PRN Reason: dry lips Last Admin: 05/20/18 11:10 Dose: 1 ea Vitamin E (Vitamin E 400 Units Cap) 400 intlu GT DAILY [facility] Last Admin: 06/19/18 09:07 Dose: 400 intlu - Labs Labs: 06/19/18 07:06 06/19/18 07:06 PT 14.3 SECONDS (9.7-12.2) H 06/10/18 07:05 INR 1.3 06/10/18 07:05 APTT 33 SECONDS (21-34) 05/25/18 06:16 Attending/Attestation - Attestation I have personally seen and examined this patient.: Yes I have fully participated in the care of the patient.: Yes I have reviewed all pertinent clinical information, including history, physical exam and plan: Yes Notes (Text): Pt was seen and examined at bedside Agree with above note and assessment Pt is improving clinically C.w tube feed Wound vac locally OOB to walk Plan d.w pt in detail
[2018-06-07] MEDS: Enoxaparin 40 mg Syringe SC SCH (09:13)
[2018-06-07] MEDS: Cholestyramine 4 gm/Pkt UD PO SCH ×2 (09:17→18:15)
[2018-06-07] MEDS: Lactobacillus Acidophilus 500 MU Cap PEG SCH ×2 (09:18→18:15)
[2018-06-07] MEDS: Loperamide Hydrochloride 1 mg/5 ml Cup PO PRN (09:25)
--- NOTE | 2018-06-07 10:51 | CP.PCM.PN ---
Subjective - Date & Time of Evaluation Date of Evaluation: 06/07/18 Time of Evaluation: 10:15 - Subjective Subjective: dictated Objective - Vital Signs/Intake and Output Vital Signs (last 24 hours): Temp Pulse Resp BP Pulse Ox 98.4 F 100 H 20 110/74 96 06/07/18 07:35 06/07/18 07:35 06/07/18 07:35 06/07/18 07:35 06/07/18 07:35 Intake and Output: 06/07/18 06/07/18 06:59 18:59 Intake Total 500 Output Total 615 Balance -115 - Medications Medications: Current Medications Acetaminophen (Tylenol 650mg/20.3ml Solution Ud) 975 mg GT Q8 [facility] Last Admin: 06/07/18 05:51 Dose: 975 mg Cholestyramine Resin (Questran) 4 gm PO BID [facility] Last Admin: 06/07/18 09:17 Dose: 4 gm Dextrose (Dextrose 50% Inj) 0 ml IV STAT PRN; Protocol PRN Reason: Hypoglycemia Protocol Last Admin: 05/16/18 23:40 Dose: 50 ml Dextrose (Glutose 15) 0 gm PO ONCE PRN; Protocol PRN Reason: Hypoglycemia Protocol Diphenhydramine HCl (Benadryl) 25 mg IVP HS PRN PRN Reason: Insomnia Last Admin: 06/06/18 21:50 Dose: 25 mg Enoxaparin Sodium (Lovenox) 40 mg SC DAILY [facility] Last Admin: 06/07/18 09:13 Dose: 40 mg Ergocalciferol (Drisdol 50,000 Intl Units Cap) 1 cap PO Q7D [facility] Stop: 07/20/18 10:31 Last Admin: 06/01/18 12:13 Dose: 1 cap Escitalopram Oxalate (Lexapro) 10 mg GT DAILY [facility] Last Admin: 06/07/18 09:17 Dose: 10 mg Glucagon (Glucagen Diagnostic Kit) 0 mg IM STAT PRN; Protocol PRN Reason: Hypoglycemia Protocol Hydrocortisone (Cortizone 1% Cream) 0 gm TOP TID PRN PRN Reason: Rash Hydromorphone HCl (Dilaudid) 1.5 mg IVP Q3 PRN PRN Reason: Pain, SEVERE (8-10) Last Admin: 06/07/18 10:34 Dose: 1.5 mg Metronidazole (Flagyl) 500 mg in 100 mls @ 100 mls/hr IVPB Q8H [facility] PRN Reason: Protocol Last Admin: 06/07/18 04:37 Dose: 100 mls/hr Ciprofloxacin (Cipro 400mg/200ml Dsw) 400 mg in 200 mls @ 133 mls/hr IVPB Q12H [facility] PRN Reason: Protocol Last Admin: 06/07/18 01:52 Dose: 133 mls/hr Potassium Chloride (Potassium Chloride 20 Meq/100 Ml) 20 meq in 100 mls @ 50 mls/hr IVPB ONCE ONE Stop: 06/07/18 11:19 Last Admin: 06/07/18 10:35 Dose: 50 mls/hr Insulin Human Regular (Novolin R) 0 unit SC Q6 [facility] PRN Reason: Protocol Last Admin: 06/07/18 06:21 Dose: Not Given Ipratropium [place] (Atrovent) 0.5 mg IH RQ6 [facility] Last Admin: 06/07/18 08:04 Dose: 0.5 mg Lactobacillus Acidophilus (Bacid Acidophilus) 1 cap PEG BID [facility] Last Admin: 06/07/18 09:18 Dose: 1 cap Loperamide HCl (Imodium) 1 mg PO Q2H PRN PRN Reason: Diarrhea Last Admin: 06/07/18 09:25 Dose: 1 mg Lorazepam (Ativan) 1 mg IVP BID [facility] Last Admin: 06/07/18 09:25 Dose: 1 mg Metoprolol Tartrate (Lopressor) 5 mg IVP Q6H [facility] Last Admin: 06/07/18 04:37 Dose: 5 mg Nicotine (Nicoderm Cq) 1 patch TD DAILY [facility] Last Admin: 06/07/18 09:17 Dose: 1 patch Nystatin (Mycostatin Cream) 0 ea TOP TID [facility] Last Admin: 06/06/18 18:12 Dose: 1 applic Ondansetron HCl (Zofran Inj) 4 mg IVP Q6H PRN PRN Reason: Nausea/Vomiting Last Admin: 06/06/18 18:44 Dose: 4 mg Pantoprazole Sodium (Protonix Inj) 40 mg IVP DAILY [facility] Last Admin: 06/07/18 09:12 Dose: 40 mg Saliva Substitute (Mouth Kote 236 Ml) 0 ml MM Q6 PRN PRN Reason: Dry mouth Vitamin A (Vitamin A & D Oint Ud Foilpak) 1 ea TOP Q8 PRN PRN Reason: dry lips Last Admin: 05/20/18 11:10 Dose: 1 ea - Labs Labs: 06/07/18 05:20 06/07/18 05:20 PT 16.0 SECONDS (9.7-12.2) H 05/26/18 06:32 INR 1.5 05/26/18 06:32 APTT 33 SECONDS (21-34) 05/25/18 06:16
[2018-06-07] MEDS: Nystatin 100,000 Units/gm Cream(15 gm) TOP SCH ×3 (11:00→18:16)
--- NOTE | 2018-06-07 15:00 | PN ---
Copied To: Guero Rivera MD Attending MD: Guero Rivera MD DATE: 06/07/2018 SUBJECTIVE: The patient was seen today. She has been on antibiotics and had ischemic bowel, now has a wound VAC on the abdominal wall and she says the dressing is getting less. She was seen to be pain free today and she is getting feeding through the jejunostomy tube. PHYSICAL EXAMINATION: VITAL SIGNS: T-max is 98.4, pulse 100, blood pressure 110/74, and respirations are 20. HEENT: Head is atraumatic, normocephalic. She has an NG tube for suction and she has an esophageal pouch, history of gastric bypass surgery. LUNGS: Clear. HEART: S1 and S2 regular. ABDOMEN: Has a dressing and a jejunostomy tube. EXTREMITIES: Have no edema. LABORATORY DATA: Labs are noted. Labs show white count is 6.5, hemoglobin 8.2. Her wound had Acinetobacter and Enterococcus, which were both sensitive to Cipro and she is on Cipro. ASSESSMENT AND PLAN: We will follow. We will continue present antibiotic as she has a wound vacuum-assisted closure, and she is also on Diflucan, I would leave it on that. Guero Rivera MD
[2018-06-07] MEDS: DiphenhydrAMINE 50 mg/ml Inj IVP PRN (22:35)
[2018-06-08] MEDS: Ciprofloxacin 400mg/200ml D5W 400 MG/200 ML BAG IVPB SCH ×2 (01:46→14:58)
[2018-06-08] MEDS: Ipratropium 0.02% Inhal Soln (0.5 mg/2.5 ml) UD IH SCH ×3 (02:46→19:26)
[2018-06-08] MEDS: metroNIDAZOLE IV 500 mg/100 ml 500 MG/100 ML BAG IVPB SCH ×3 (03:30→20:09)
[2018-06-08] MEDS: Metoprolol 1 mg/ml Inj IVP SCH ×4 (04:48→22:19)
[2018-06-08] MEDS: (Novolin R) Insulin Human Regular 100 units/ml vial SC SCH ×4 (06:00→17:50)
[2018-06-08] MEDS: Acetaminophen 650mg/20.3ml solution UD GT SCH ×3 (07:00→23:13)
--- NOTE | 2018-06-08 07:34 | CP.PCM.PN ---
<Esther Angulo - Last Filed: 06/08/18 19:09> Subjective - Date & Time of Evaluation Date of Evaluation: 06/08/18 Time of Evaluation: 07:22 - Subjective Subjective: Esther Angulo PGY-1--Medicine Progress Note for Dr. Kirby Patient seen and examined at bedside. Patient is in no acute distress. Wound vac was placed 5 days ago (06/03) but it had been draining fluid since placement. On 06/06/2018, surgical team replaced the wound vac and bandaged the incision site. Patient notes since wound vac replacement she has had no more leakage, neither from the incision site nor from the wound vac. She denies pain at the site and denies drainage at the g-tube site where ojeda is in place for feeds. The frequency of her bowel movements has decreased; Patient admits to having 2 episodes of non-bloody diarrhea over the last 24 hours. She denies shortness of breath, chest pain, palpitations, dizziness, headaches, vision changes, constipation, cough, congestion, or sore throat. Objective - Vital Signs/Intake and Output Vital Signs (last 24 hours): Temp Pulse Resp BP Pulse Ox 98.5 F 111 H 20 124/85 96 06/08/18 04:00 06/08/18 04:00 06/08/18 04:00 06/08/18 04:00 06/08/18 04:00 Intake and Output: 06/08/18 06/08/18 06:59 18:59 Intake Total 200 Output Total 710 Balance -510 - Medications Medications: Current Medications Acetaminophen (Tylenol 650mg/20.3ml Solution Ud) 975 mg GT Q8 [facility] Last Admin: 06/08/18 07:00 Dose: 975 mg Cholestyramine Resin (Questran) 4 gm PO BID [facility] Last Admin: 06/07/18 18:15 Dose: 4 gm Dextrose (Dextrose 50% Inj) 0 ml IV STAT PRN; Protocol PRN Reason: Hypoglycemia Protocol Last Admin: 05/16/18 23:40 Dose: 50 ml Dextrose (Glutose 15) 0 gm PO ONCE PRN; Protocol PRN Reason: Hypoglycemia Protocol Diphenhydramine HCl (Benadryl) 25 mg IVP HS PRN PRN Reason: Insomnia Last Admin: 06/07/18 22:35 Dose: 25 mg Enoxaparin Sodium (Lovenox) 40 mg SC DAILY [facility] Last Admin: 06/07/18 09:13 Dose: 40 mg Ergocalciferol (Drisdol 50,000 Intl Units Cap) 1 cap PO Q7D [facility] Stop: 07/20/18 10:31 Last Admin: 06/01/18 12:13 Dose: 1 cap Escitalopram Oxalate (Lexapro) 10 mg GT DAILY [facility] Last Admin: 06/07/18 09:17 Dose: 10 mg Glucagon (Glucagen Diagnostic Kit) 0 mg IM STAT PRN; Protocol PRN Reason: Hypoglycemia Protocol Hydrocortisone (Cortizone 1% Cream) 0 gm TOP TID PRN PRN Reason: Rash Hydromorphone HCl (Dilaudid) 1.5 mg IVP Q3 PRN PRN Reason: Pain, SEVERE (8-10) Last Admin: 06/08/18 04:44 Dose: 1.5 mg Metronidazole (Flagyl) 500 mg in 100 mls @ 100 mls/hr IVPB Q8H [facility] PRN Reason: Protocol Last Admin: 06/08/18 03:30 Dose: 100 mls/hr Ciprofloxacin (Cipro 400mg/200ml Dsw) 400 mg in 200 mls @ 133 mls/hr IVPB Q12H [facility] PRN Reason: Protocol Last Admin: 06/08/18 01:46 Dose: 133 mls/hr Insulin Human Regular (Novolin R) 0 unit SC Q6 [facility] PRN Reason: Protocol Last Admin: 06/08/18 00:00 Dose: Not Given Ipratropium [place] (Atrovent) 0.5 mg IH RQ6 [facility] Last Admin: 06/08/18 02:46 Dose: Not Given Lactobacillus Acidophilus (Bacid Acidophilus) 1 cap PEG BID [facility] Last Admin: 06/07/18 18:15 Dose: 1 cap Loperamide HCl (Imodium) 1 mg PO Q2H PRN PRN Reason: Diarrhea Last Admin: 06/07/18 09:25 Dose: 1 mg Lorazepam (Ativan) 1 mg IVP BID [facility] Last Admin: 06/07/18 18:15 Dose: 1 mg Metoprolol Tartrate (Lopressor) 5 mg IVP Q6H [facility] Last Admin: 06/08/18 04:48 Dose: 5 mg Nicotine (Nicoderm Cq) 1 patch TD DAILY [facility] Last Admin: 06/07/18 09:17 Dose: 1 patch Nystatin (Mycostatin Cream) 0 ea TOP TID [facility] Last Admin: 06/07/18 18:16 Dose: 1 applic Ondansetron HCl (Zofran Inj) 4 mg IVP Q6H PRN PRN Reason: Nausea/Vomiting Last Admin: 06/07/18 12:41 Dose: 4 mg Pantoprazole Sodium (Protonix Inj) 40 mg IVP DAILY [facility] Last Admin: 06/07/18 09:12 Dose: 40 mg Saliva Substitute (Mouth Kote 236 Ml) 0 ml MM Q6 PRN PRN Reason: Dry mouth Vitamin A (Vitamin A & D Oint Ud Foilpak) 1 ea TOP Q8 PRN PRN Reason: dry lips Last Admin: 05/20/18 11:10 Dose: 1 ea - Labs Labs: 06/07/18 05:20 06/07/18 05:20 PT 16.0 SECONDS (9.7-12.2) H 05/26/18 06:32 INR 1.5 05/26/18 06:32 APTT 33 SECONDS (21-34) 05/25/18 06:16 - Additional Findings Additional findings: - Constitutional Appears: Non-toxic, No Acute Distress - Head Exam Head Exam: ATRAUMATIC, NORMAL INSPECTION, NORMOCEPHALIC - Eye Exam Eye Exam: EOMI, Normal appearance - ENT Exam ENT Exam: Mucous Membranes Moist - Respiratory Exam Respiratory Exam: Clear to Ausculation Bilateral, NORMAL BREATHING PATTERN. absent: Rales, Rhonchi, Wheezes - GI/Abdominal Exam GI & Abdominal Exam: Guarding, Normal Bowel Sounds. absent: Distended, Firm, Rigid Additional comments: Wound vac in place at inferior edge of surgical incision with packing overlying remainder of surgical incision; no surrounding erythema, edema or tenderness; Ojeda in place at gastrostomy site with no surrounding erythema, edema, or tenderness. No suprapubic tenderness, no distention or guarding - Extremities Exam Extremities Exam: Normal Inspection. absent: Calf Tenderness, Pedal Edema, Tenderness Additional comments: PICC line in place to right upper extremity without surrounding edema, erythema or ecchymotic changes - Neurological Exam Neurological Exam: Alert, Awake, Oriented x3 - Psychiatric Exam Psychiatric exam: Normal Affect, Normal Mood - Skin Skin Exam: Dry, Intact, Normal Color, Warm Assessment and Plan - Assessment and Plan (Free Text) Assessment: Patient is a 37 year old female with a history of gastric bypass in 2013 who presented with several abdominal pain. She was found to have bowel ischemia 2/2 internal hernia. Patient underwent ex lap on 05/14 and again on 05/16. She will need a repeat surgery 4-6 weeks from the first. She currently has an NGT, is utilizing a ojeda at her gastrostomy site for nutrition/meds. Wound vac is in place over the incision site on 06/03, changed yesterday 06/06, with no more leakage at site, has a R arm PICC for Abx: Ischemic bowel disease secondary to to internal hernias producing bowel obstruction - Summary of course: Patient required emergent surgical intervention on 05/14/18 and transferred to ICU. Patient had a second surgery on 05/16/18. - Per operative note (05/14/18): Diagnostic laparoscopy, Exploratory laparotomy, Reduction of internal hernia, Lysis of adhesions, Drainage of abdominal collections, temporary abdominal closure, EGD. Ischemia of yenni limb, internal hernia. Pray drain stitched to distal common limb - Per operative note (05/16/18): Re-exploration, Small bowel resection of il eum, small bowel resection of Yenni limb with gastrojejunostomy, reversal of bypass, primary anastomosis of ileum-ileum, ileum-ileum, and ileum- jejunum, Gastrostomy tube in bypassed stomach, EGD - Dr. Harley (surgery) on the case - Preoperative/intraoperative/postoperative management per surgery - wound vac to continuous suction and following output (changed on 06/06/18) - Following Bariatric surgeon (Dr. Mccray) recs---Will plan for exchange of ojeda G-tube for a larger size Gtube preferably at least 24Fr in size with IR. current recs no taoism of continuity operation until 5 weeks after 05/16 surgery - Current drainage from mildine incision possibly d/t leak of tube feed contents from around gastrostomy tube vs fistula--wound vac in place - Current drains include: NGT (have on continuos suction), gastrostomy tube- temporary Ojeda in place after G-tube "fell out" on 05/30, wound vac replaced on 06/06/2018 - Cultures: - Peritoneal Fluid (05/14/18): Pseudomonas Aeruginosa sensitive to Meropenem - Wound Culture (05/23/18): Yudith albicans - Blood culture (05/15/18, 05/22/18): no growth - Urine culture (05/22/18): no growth - Incision site 05/31: Enterococcus faecalis, Acinetobacter baumannii Abxs: - Continue Cipro 400 mg IV q12hrs (started 06/02) - Continue Flagyl 500mg IVPB Q8H (active since 05/15/18) - Continue Nystatin cream TID for G-tube site (Yudith) - Discontinued Meropenem 1 gm IVPB Q8H (active since 05/15/18-05/27/18) Measure vitamin levels and replace as needed - Vit D <12.8- vit D 50,000 units q1wk x8 wks - B12 707 - Folate 12.6 - Follow-up on vitamins A, B1, B6, E (pending) PRN meds: - Continue Tylenol 975 mg liq q8hrs - Continue Dilaudid 1.5 mg IV q3hrs PRN - Continue Zofran 4mg IV q6hrs PRN - PT consulted- working with patient, current rec TCU following discharge Tachycardia, persistent (110s-130s)- possibly etiologies include pain, infection, anxiety - She is being treated for Left G Tube fluid infection. - Continue ativan PRN. - Continue Dilaudid on board to be used PRN. - Continue Metoprolol tartrate 5 mg IV q6hrs with holding parameters (SBP <100, HR <60) Hypokalemia, stable - Repeat CMP ordered for AM - Replenished w/ 40 meq KCl - Monitor and replete as necessary with morning labs Leukocytosis, trending downwards - likely secondary to to ischemic bowel secondary to small bowel obstruction and surgeries - Cultures: Peritoneal Fluid (05/14/18): Pseudomonas Aeruginosa sensitive to Meropenem Wound Culture (05/23/18): Yudith albicans Blood culture (05/15/18, 05/22/18): no growth Urine culture (05/22/18): no growth - Wound Cx from incision site 05/31: Enterococcus faecalis, Acinetobacter baumannii, on ciprofloxacin 400 mg (started 06/02) - Monitor CBC QOD Diarrhea, acute, improving- suspect secondary to PO intake by pt - C. Diff (05/22, 05/24, 05/28): negative - Stool O&P (05/25/18): negative - Stool leukocytes (05/25/18): negative - per ID continue flagyl for 2-3 additional days due to leak around wound vac Anxiety - Casino [employer] consulted- pt initially refused but then accepted - Psychiatry consulted (Dr. Reyez)- managing Ativan - Continue Ativan 1 mg IV BID - Continue Lexapro 10 mg PO daily (started 05/31) Anemia, acute, stable, pt denies blood in stool - Patient received a total of 2 PRBC (on 05/16) and 4 FFP (on 05/15 to 05/16) - Iron 16, TIBC 205, % sat 4.7, ferritin 75.3 - Monitor CBC every other day Thombocytosis, improving (504)- suspect reactive to pain, surgery - Monitor CBC every other day Diabetes Mellitus, Type 2, controlled - From prior note: Admittedly non-compliant, has not taken Januvia for one year - Accuchecks q6hrs - Hypoglycemic protocol - ISS regular - HbA1c 5.8 - History of gastric bypass surgery Hypercholesterolemia- untreated - LDL 38, HDL 14, Chol 104, TG 226 - History of gastric bypass surgery History of Hypertension, controlled- since gastric bypass has not taken meds - Metoprolol 5 mg IV q6hrs History of Obesity, resolved - s/p gastric bypass surgery in 2013 History of Asthma - Atrovent q6hrs Nicotine use disorder - From prior note: 1ppd x 20 yrs, 1/2 ppd x 3 yrs - Continue Nicoderm 1 patch TD QD Prophylaxis - Hydrocortisone 1% Cream topical TID for Right Upper Inner Arm macular rash- improved - Vitamin A&D topical q8hrs PRN for dry lips - Saliva substitute q6hrs PRN for dry mouth - IVF: not indicated - VTE ppx: Lovenox 40 mg SC daily, SCDs - GI ppx: Protonix 40 mg IV BID, Florastor BID - Diet: feeds via gastrostomy - Osmolite (temporary Ojeda in place)- managed by surgery - Code status: full code Dispo: awaiting follow-up surgery and surgical team's recs. Patient was seen and evaluated with and case discussed in detail with Attending Physician, Dr. Mirta Angulo PGY-1 <Wesley Kirby - Last Filed: 08/04/18 13:42> Attending/Attestation - Attestation I have personally seen and examined this patient.: Yes I have fully participated in the care of the patient.: Yes I have reviewed all pertinent clinical information, including history, physical exam and plan: Yes Notes (Text): Ischemic bowel disease 2/2 internal hernia producing bowel obstruction Chronic pain syndrome Diarrhea awaiting final decision re surgery to connect stomach with bowel based on nutritional status to be determined by surgery
[2018-06-08] MEDS: Cholestyramine 4 gm/Pkt UD PO SCH ×2 (10:24→17:26)
[2018-06-08] MEDS: Enoxaparin 40 mg Syringe SC SCH (10:24)
[2018-06-08] MEDS: Loperamide Hydrochloride 1 mg/5 ml Cup PO PRN ×2 (10:25→17:26)
[2018-06-08] MEDS: Lactobacillus Acidophilus 500 MU Cap PEG SCH ×3 (10:25→23:00)
[2018-06-08] MEDS: Nystatin 100,000 Units/gm Cream(15 gm) TOP SCH ×3 (10:28→20:10)
[2018-06-08] MEDS: Ergocalciferol 50,000 Intl Units Cap PO SCH (10:55)
--- NOTE | 2018-06-08 11:28 | CP.PCM.PN ---
<Duran Jimenez - Last Filed: 06/08/18 11:28> Subjective - Date & Time of Evaluation Date of Evaluation: 06/08/18 Time of Evaluation: 10:15 - Subjective Subjective: Patient seen and examined. No acute events over night. Midline incision is c/d/ i. Wound vac canister with 150cc of tube feed liquid. No erythema noted along incision. Ojeda OG tube in place. Tolerating tube feeds. Patient reports diarrhea frequency has decreased to about 2 times a day. Objective - Vital Signs/Intake and Output Vital Signs (last 24 hours): Temp Pulse Resp BP Pulse Ox 98.3 F 112 H 20 135/88 97 06/08/18 07:00 06/08/18 07:05 06/08/18 07:00 06/08/18 07:00 06/08/18 07:00 Intake and Output: 06/08/18 06/08/18 06:59 18:59 Intake Total 200 Output Total 710 Balance -510 - Medications Medications: Current Medications Acetaminophen (Tylenol 650mg/20.3ml Solution Ud) 975 mg GT Q8 [facility] Last Admin: 06/08/18 07:00 Dose: 975 mg Cholestyramine Resin (Questran) 4 gm PO BID [facility] Last Admin: 06/08/18 10:24 Dose: 4 gm Dextrose (Dextrose 50% Inj) 0 ml IV STAT PRN; Protocol PRN Reason: Hypoglycemia Protocol Last Admin: 05/16/18 23:40 Dose: 50 ml Dextrose (Glutose 15) 0 gm PO ONCE PRN; Protocol PRN Reason: Hypoglycemia Protocol Diphenhydramine HCl (Benadryl) 25 mg IVP HS PRN PRN Reason: Insomnia Last Admin: 06/07/18 22:35 Dose: 25 mg Enoxaparin Sodium (Lovenox) 40 mg SC DAILY [facility] Last Admin: 06/08/18 10:24 Dose: 40 mg Ergocalciferol (Drisdol 50,000 Intl Units Cap) 1 cap PO Q7D [facility] Stop: 07/20/18 10:31 Last Admin: 06/08/18 10:55 Dose: 1 cap Escitalopram Oxalate (Lexapro) 10 mg GT DAILY [facility] Last Admin: 06/08/18 10:25 Dose: 10 mg Glucagon (Glucagen Diagnostic Kit) 0 mg IM STAT PRN; Protocol PRN Reason: Hypoglycemia Protocol Hydrocortisone (Cortizone 1% Cream) 0 gm TOP TID PRN PRN Reason: Rash Hydromorphone HCl (Dilaudid) 1.5 mg IVP Q3 PRN PRN Reason: Pain, SEVERE (8-10) Last Admin: 06/08/18 11:05 Dose: 1.5 mg Metronidazole (Flagyl) 500 mg in 100 mls @ 100 mls/hr IVPB Q8H [facility] PRN Reason: Protocol Last Admin: 06/08/18 03:30 Dose: 100 mls/hr Insulin Human Regular (Novolin R) 0 unit SC Q6 [facility] PRN Reason: Protocol Last Admin: 06/08/18 06:00 Dose: Not Given Ipratropium [place] (Atrovent) 0.5 mg IH RQ6 [facility] Last Admin: 06/08/18 02:46 Dose: Not Given Lactobacillus Acidophilus (Bacid Acidophilus) 1 cap PEG BID [facility] Last Admin: 06/08/18 10:25 Dose: 1 cap Loperamide HCl (Imodium) 1 mg PO Q2H PRN PRN Reason: Diarrhea Last Admin: 06/08/18 10:25 Dose: 1 mg Lorazepam (Ativan) 1 mg IVP BID [facility] Last Admin: 06/08/18 10:26 Dose: 1 mg Metoprolol Tartrate (Lopressor) 5 mg IVP Q6H [facility] Last Admin: 06/08/18 10:45 Dose: 5 mg Nicotine (Nicoderm Cq) 1 patch TD DAILY [facility] Last Admin: 06/08/18 10:24 Dose: 1 patch Nystatin (Mycostatin Cream) 0 ea TOP TID [facility] Last Admin: 06/08/18 10:28 Dose: 1 applic Ondansetron HCl (Zofran Inj) 4 mg IVP Q6H PRN PRN Reason: Nausea/Vomiting Last Admin: 06/08/18 10:36 Dose: 4 mg Pantoprazole Sodium (Protonix Inj) 40 mg IVP DAILY [facility] Last Admin: 06/08/18 10:24 Dose: 40 mg Saliva Substitute (Mouth Kote 236 Ml) 0 ml MM Q6 PRN PRN Reason: Dry mouth Vitamin A (Vitamin A & D Oint Ud Foilpak) 1 ea TOP Q8 PRN PRN Reason: dry lips Last Admin: 05/20/18 11:10 Dose: 1 ea - Labs Labs: 08/28/18 05:20 06/07/18 05:20 PT 16.0 SECONDS (9.7-12.2) H 05/26/18 06:32 INR 1.5 05/26/18 06:32 APTT 33 SECONDS (21-34) 05/25/18 06:16 - Constitutional Appears: No Acute Distress - Head Exam Head Exam: NORMOCEPHALIC - Eye Exam Eye Exam: Normal appearance - ENT Exam ENT Exam: Mucous Membranes Moist - Respiratory Exam Respiratory Exam: NORMAL BREATHING PATTERN - Cardiovascular Exam Cardiovascular Exam: +S1, +S2 - GI/Abdominal Exam GI & Abdominal Exam: Soft - Neurological Exam Neurological Exam: Alert, Awake, Oriented x3 - Psychiatric Exam Psychiatric exam: Normal Mood - Skin Skin Exam: Dry, Intact, Warm Assessment and Plan - Assessment and Plan (Free Text) Assessment: 38yo F with PMHx of yenni-en-Y gastric bypass in 2013, presented with bowel ischemia secondary to internal hernia. POD#25 s/p Exploratory laparotomy, Reduction of internal hernia, DANNI, Drainage of abdominal collections, temporary abdominal closure, and EGD. POD#21 s/p Re-exploration, resection of ileum and Yenni limb including previous gastrojejunostomy, reversal of bypass, primary anastomosis of ileum-ileum, ileum -ileum, and ileum-jejunum, Gastrostomy tube in bypassed stomach, EGD Current drainage from mildine incision possibly d/t leak of tube feed contents from around gastrostomy tube vs fistula--wound vac in place Plan: - Continue to monitor labs Q2days - Continue wound vac to suction --will change on 06/09/2018 - Continue tube feeds for nutrition - Continue NGT to intermittent suction - Continue antibiotics, PRN pain medications - Encourage ambulation with PT - Dr. Harley discussed timing for re-operation with Dr. Mccray, bariatric surgeons--no spiritism of continuity operation until 5-6 weeks after most recent surgery--patient needs to fully medically/nutritionally optimized prior to OR -Will plan for exchange of ojeda G-tube for a larger size Gtube preferably at least 24Fr in size with IR. - Discussed plan with Dr. Cricket Jimenez PGY3 <Gómze Harley - Last Filed: 06/19/18 09:12> Objective - Vital Signs/Intake and Output Vital Signs (last 24 hours): Temp Pulse Resp BP Pulse Ox 98.8 F 99 H 20 99/66 L 97 06/19/18 07:00 06/19/18 07:00 06/19/18 07:00 06/19/18 07:00 06/19/18 07:00 Intake and Output: 06/19/18 06/19/18 06:59 18:59 Intake Total 1000 Output Total 615 Balance 385 - Medications Medications: Current Medications Acetaminophen (Tylenol 650mg/20.3ml Solution Ud) 975 mg GT Q8 PRN PRN Reason: Pain, Mild (1-3) Last Admin: 06/16/18 09:25 Dose: 975 mg Cholestyramine Resin (Questran) 4 gm PO BID [facility] Last Admin: 06/19/18 09:07 Dose: 4 gm Dextrose (Dextrose 50% Inj) 0 ml IV STAT PRN; Protocol PRN Reason: Hypoglycemia Protocol Last Admin: 05/16/18 23:40 Dose: 50 ml Dextrose (Glutose 15) 0 gm PO ONCE PRN; Protocol PRN Reason: Hypoglycemia Protocol Diphenhydramine HCl (Benadryl) 25 mg IVP QPM PRN PRN Reason: Insomnia Last Admin: 06/18/18 19:30 Dose: 25 mg Enoxaparin Sodium (Lovenox) 40 mg SC DAILY [facility] Last Admin: 06/19/18 09:08 Dose: 40 mg Ergocalciferol (Drisdol 50,000 Intl Units Cap) 1 cap PO Q7D [facility] Stop: 07/20/18 10:31 Last Admin: 06/15/18 10:40 Dose: 1 cap Escitalopram Oxalate (Lexapro) 10 mg GT DAILY [facility] Last Admin: 06/19/18 09:07 Dose: 10 mg Glucagon (Glucagen Diagnostic Kit) 0 mg IM STAT PRN; Protocol PRN Reason: Hypoglycemia Protocol Hydrocortisone (Cortizone 1% Cream) 0 gm TOP TID PRN PRN Reason: Rash Hydromorphone HCl (Dilaudid) 1.5 mg IVP Q3 PRN PRN Reason: Pain, SEVERE (8-10) Last Admin: 06/19/18 07:50 Dose: 1.5 mg Metronidazole (Flagyl) 500 mg in 100 mls @ 100 mls/hr IVPB Q8H [facility] PRN Reason: Protocol Last Admin: 06/19/18 04:34 Dose: 100 mls/hr Vancomycin HCl 1.5 gm/ Sodium (Chloride) 500 mls @ 333.333 mls/hr IVPB Q12H [facility] PRN Reason: Protocol Last Admin: 06/19/18 00:18 Dose: 333.333 mls/hr Insulin Human Regular (Novolin R) 0 unit SC Q6 [facility] PRN Reason: Protocol Last Admin: 06/19/18 06:20 Dose: Not Given Ipratropium [place] (Atrovent) 0.5 mg IH RQ6 [facility] Last Admin: 06/19/18 08:35 Dose: 0.5 mg Lactobacillus Acidophilus (Bacid Acidophilus) 1 cap PEG BID [facility] Last Admin: 06/19/18 09:07 Dose: 1 cap Loperamide HCl (Imodium) 1 mg PO Q2H PRN PRN Reason: Diarrhea Last Admin: 06/18/18 10:03 Dose: 1 mg Lorazepam (Ativan) 1 mg IVP BID [facility] Last Admin: 06/19/18 09:08 Dose: 1 mg Metoprolol Tartrate (Lopressor) 5 mg IVP Q6H [facility] Last Admin: 06/19/18 04:24 Dose: 5 mg Nicotine (Nicoderm Cq) 1 patch TD DAILY [facility] Last Admin: 06/19/18 09:07 Dose: 1 patch Ondansetron HCl (Zofran Inj) 4 mg IVP Q6H PRN PRN Reason: Nausea/Vomiting Last Admin: 06/18/18 11:50 Dose: 4 mg Pantoprazole Sodium (Protonix Susp) 40 mg PO Q24H [facility] Last Admin: 06/19/18 09:08 Dose: 40 mg Saliva Substitute (Mouth Kote 236 Ml) 0 ml MM Q6 PRN PRN Reason: Dry mouth Vitamin A (Vitamin A & D Oint Ud Foilpak) 1 ea TOP Q8 PRN PRN Reason: dry lips Last Admin: 05/20/18 11:10 Dose: 1 ea Vitamin E (Vitamin E 400 Units Cap) 400 intlu GT DAILY [facility] Last Admin: 06/19/18 09:07 Dose: 400 intlu - Labs Labs: 06/19/18 07:06 06/19/18 07:06 PT 14.3 SECONDS (9.7-12.2) H 06/10/18 07:05 INR 1.3 06/10/18 07:05 APTT 33 SECONDS (21-34) 05/25/18 06:16 Attending/Attestation - Attestation I have personally seen and examined this patient.: Yes I have fully participated in the care of the patient.: Yes I have reviewed all pertinent clinical information, including history, physical exam and plan: Yes Notes (Text): Pt was seen and examined at bedside Agree with above note and assessment Pt is clinically same c.w current mx we will f.u Plan d.w pt in detail
[2018-06-08] MEDS: Pantoprazole 40 mg Susp UD PO SCH (17:26)
[2018-06-08] MEDS: DiphenhydrAMINE 50 mg/ml Inj IVP PRN (23:13)
[2018-06-09] MEDS: (Novolin R) Insulin Human Regular 100 units/ml vial SC SCH ×5 (00:23→23:00)
[2018-06-09] MEDS: Ipratropium 0.02% Inhal Soln (0.5 mg/2.5 ml) UD IH SCH ×3 (01:47→19:29)
[2018-06-09] MEDS: Ciprofloxacin 400mg/200ml D5W 400 MG/200 ML BAG IVPB SCH ×2 (02:20→14:40)
[2018-06-09] MEDS: metroNIDAZOLE IV 500 mg/100 ml 500 MG/100 ML BAG IVPB SCH ×3 (04:35→21:00)
[2018-06-09] MEDS: Metoprolol 1 mg/ml Inj IVP SCH ×4 (05:28→23:09)
[2018-06-09] MEDS: Acetaminophen 650mg/20.3ml solution UD GT SCH ×3 (05:40→23:00)
[2018-06-09 07:48] LABS: BASO % 0.6 % (0.0-2.0); EOS # 0.2 K/uL (0.0-0.7); EOS % 3.5 % (0.0-4.0); HEMOGLOBIN 8.8 g/dL (11.0-16.0); LYMPH # 1.9 K/uL (1.0-4.3); LYMPH % 28.8 % (20.0-40.0); MEAN CELL VOLUME 85.5 fL (81.0-99.0); MEAN CORPUSCULAR HEMOGLOBIN 28.3 pg (27.0-31.0); MEAN CORPUSCULAR HGB CONC 33.1 g/dL (33.0-37.0); MEAN PLATELET VOLUME 7.7 fL (7.2-11.7); MONO # 0.7 K/uL (0.0-0.8); MONO % 10.7 % (0.0-10.0); NEUT # 3.7 K/uL (1.8-7.0); NEUT % 56.4 % (50.0-75.0); NRBC % 0.2 % (0.0-2.0); RBC 3.11 Mil/uL (3.80-5.20); RED CELL DISTRIBUTION WIDTH 17.4 % (11.5-14.5); WHITE BLOOD COUNT 6.5 K/uL (4.8-10.8)
[2018-06-09 07:57] LABS: ALB/GLOB RATIO 0.9 (1.0-2.1)
[2018-06-09 07:58] LABS: ALBUMIN 2.7 g/dL (3.5-5.0); ALT/SGPT 23 U/L (9-52); AST/SGOT 13 U/L (14-36); BLOOD UREA NITROGEN 7 mg/dL (7-17); CALCIUM 8.1 mg/dl (8.6-10.4); GFR NON-AFRICAN AMERICAN > 60
--- NOTE | 2018-06-09 08:51 | CP.PCM.PN ---
<Maggie Dailey - Last Filed: 06/09/18 08:58> Subjective - Date & Time of Evaluation Date of Evaluation: 06/09/18 Time of Evaluation: 07:00 - Subjective Subjective: GENERAL SURGERY PROGRESS NOTE FOR DR. TIAN Patient seen and examined at bedside. Wound vac was leaking small amount. She denies nausea or vomiting. Twice had diarrhea overnight. Objective - Vital Signs/Intake and Output Vital Signs (last 24 hours): Temp Pulse Resp BP Pulse Ox 98.6 F 104 H 20 120/82 97 06/08/18 23:25 06/09/18 07:00 06/08/18 23:25 06/08/18 23:25 06/08/18 23:25 Intake and Output: 06/09/18 06/09/18 06:59 18:59 Intake Total 500 Output Total 300 Balance 200 - Medications Medications: Current Medications Acetaminophen (Tylenol 650mg/20.3ml Solution Ud) 975 mg GT Q8 [facility] Last Admin: 06/09/18 05:40 Dose: 975 mg Cholestyramine Resin (Questran) 4 gm PO BID [facility] [place] Last Admin: 06/08/18 17:26 Dose: 4 gm Dextrose (Dextrose 50% Inj) 0 ml IV STAT PRN; Protocol PRN Reason: Hypoglycemia Protocol Last Admin: 05/16/18 23:40 Dose: 50 ml Dextrose (Glutose 15) 0 gm PO ONCE PRN; Protocol PRN Reason: Hypoglycemia Protocol Diphenhydramine HCl (Benadryl) 25 mg IVP HS PRN PRN Reason: Insomnia Last Admin: 06/08/18 23:13 Dose: 25 mg Enoxaparin Sodium (Lovenox) 40 mg SC DAILY [facility] [place] Last Admin: 06/08/18 10:24 Dose: 40 mg Ergocalciferol (Drisdol 50,000 Intl Units Cap) 1 cap PO Q7D [facility] Stop: 07/20/18 10:31 Last Admin: 06/08/18 10:55 Dose: 1 cap Escitalopram Oxalate (Lexapro) 10 mg GT DAILY [facility] [place] Last Admin: 06/08/18 10:25 Dose: 10 mg Glucagon (Glucagen Diagnostic Kit) 0 mg IM STAT PRN; Protocol PRN Reason: Hypoglycemia Protocol Hydrocortisone (Cortizone 1% Cream) 0 gm TOP TID PRN PRN Reason: Rash Hydromorphone HCl (Dilaudid) 1.5 mg IVP Q3 PRN PRN Reason: Pain, SEVERE (8-10) Last Admin: 06/09/18 08:40 Dose: 1.5 mg Metronidazole (Flagyl) 500 mg in 100 mls @ 100 mls/hr IVPB Q8H [facility] PRN Reason: Protocol Last Admin: 06/09/18 04:35 Dose: 100 mls/hr Ciprofloxacin (Cipro 400mg/200ml Dsw) 400 mg in 200 mls @ 133 mls/hr IVPB Q12H [facility] PRN Reason: Protocol Last Admin: 06/09/18 02:20 Dose: 133 mls/hr Insulin Human Regular (Novolin R) 0 unit SC Q6 [facility] PRN Reason: Protocol Last Admin: 06/09/18 07:24 Dose: Not Given Ipratropium [place] (Atrovent) 0.5 mg IH RQ6 [facility] Last Admin: 06/09/18 07:10 Dose: 0.5 mg Lactobacillus Acidophilus (Bacid Acidophilus) 1 cap PEG BID [facility] [place] Last Admin: 06/08/18 23:00 Dose: Not Given Loperamide HCl (Imodium) 1 mg PO Q2H PRN PRN Reason: Diarrhea Last Admin: 06/08/18 17:26 Dose: 1 mg Lorazepam (Ativan) 1 mg IVP BID [facility] Last Admin: 06/08/18 17:14 Dose: 1 mg Metoprolol Tartrate (Lopressor) 5 mg IVP Q6H [facility] [place] Last Admin: 06/09/18 05:28 Dose: 5 mg Nicotine (Nicoderm Cq) 1 patch TD DAILY [facility] [place] Last Admin: 06/08/18 10:24 Dose: 1 patch Nystatin (Mycostatin Cream) 0 ea TOP TID [facility] Last Admin: 06/08/18 20:10 Dose: 1 applic Ondansetron HCl (Zofran Inj) 4 mg IVP Q6H PRN PRN Reason: Nausea/Vomiting Last Admin: 06/08/18 10:36 Dose: 4 mg Pantoprazole Sodium (Protonix Susp) 40 mg PO DAILY [facility] [place] Last Admin: 06/08/18 17:26 Dose: 40 mg Saliva Substitute (Mouth Kote 236 Ml) 0 ml MM Q6 PRN PRN Reason: Dry mouth Vitamin A (Vitamin A & D Oint Ud Foilpak) 1 ea TOP Q8 PRN PRN Reason: dry lips Last Admin: 05/20/18 11:10 Dose: 1 ea - Labs Labs: 06/09/18 07:35 06/09/18 07:35 PT 16.0 SECONDS (9.7-12.2) H 05/26/18 06:32 INR 1.5 05/26/18 06:32 APTT 33 SECONDS (21-34) 05/25/18 06:16 - Constitutional Appears: Non-toxic, No Acute Distress - Head Exam Head Exam: ATRAUMATIC, NORMAL INSPECTION - Respiratory Exam Respiratory Exam: NORMAL BREATHING PATTERN. absent: Respiratory Distress - Cardiovascular Exam Cardiovascular Exam: Tachycardia (baseline) - GI/Abdominal Exam GI & Abdominal Exam: Soft. absent: Distended, Firm, Guarding, Rigid, Tenderness , Rebound Additional comments: Wound vac in place on suction G tube in place - Neurological Exam Neurological Exam: Alert, Awake, Oriented x3 - Psychiatric Exam Psychiatric exam: Normal Affect, Normal Mood - Skin Skin Exam: Dry, Normal Color, Warm Assessment and Plan - Assessment and Plan (Free Text) Assessment: 38yo F with PMHx of [id number] gastric bypass in 2014, presented with bowel ischemia secondary to internal hernia. POD#26 s/p Exploratory laparotomy, Reduction of internal hernia, DANNI, Drainage of abdominal collections, temporary abdominal closure, and EGD. POD#22 s/p Re-exploration, resection of ileum and Yenni limb including previous gastrojejunostomy, reversal of bypass, primary anastomosis of ileum-ileum, ileum -ileum, and ileum-jejunum, Gastrostomy tube in bypassed stomach, EGD Current drainage from mildine incision possibly d/t leak of tube feed contents from around gastrostomy tube vs fistula--wound vac in place Plan: - Continue to monitor labs Q2days - Continue wound vac to suction --will change today 06/09/2018 - Continue tube feeds for nutrition - Continue NGT to intermittent suction - Continue antibiotics, PRN pain medications - Encourage ambulation with PT - Dr. Harley discussed timing for re-operation with Dr. Mccray, bariatric surgeon--no voodoo of continuity operation until 5-6 weeks after most recent surgery--patient needs to fully medically/nutritionally optimized prior to OR - IR planning for exchange with bigger G tube tomorrow - Discussed plan with Dr. Cricket Dailey PGY-4 <Gómez Harley - Last Filed: 06/19/18 09:32> Objective - Vital Signs/Intake and Output Vital Signs (last 24 hours): Temp Pulse Resp BP Pulse Ox 98.8 F 99 H 20 99/66 L 97 06/19/18 07:00 06/19/18 07:00 06/19/18 07:00 06/19/18 07:00 06/19/18 07:00 Intake and Output: 06/19/18 06/19/18 06:59 18:59 Intake Total 1000 Output Total 615 Balance 385 - Medications Medications: Current Medications Acetaminophen (Tylenol 650mg/20.3ml Solution Ud) 975 mg GT Q8 PRN PRN Reason: Pain, Mild (1-3) Last Admin: 06/16/18 09:25 Dose: 975 mg Bacitracin (Bacitracin) 1 ea TOP BID ONE Stop: 06/19/18 09:14 Cholestyramine Resin (Questran) 4 gm PO BID [facility] Last Admin: 06/19/18 09:07 Dose: 4 gm Dextrose (Dextrose 50% Inj) 0 ml IV STAT PRN; Protocol PRN Reason: Hypoglycemia Protocol Last Admin: 05/16/18 23:40 Dose: 50 ml Dextrose (Glutose 15) 0 gm PO ONCE PRN; Protocol PRN Reason: Hypoglycemia Protocol Diphenhydramine HCl (Benadryl) 25 mg IVP QPM PRN PRN Reason: Insomnia Last Admin: 06/18/18 19:30 Dose: 25 mg Enoxaparin Sodium (Lovenox) 40 mg SC DAILY [facility] Last Admin: 06/19/18 09:08 Dose: 40 mg Ergocalciferol (Drisdol 50,000 Intl Units Cap) 1 cap PO Q7D [facility] Stop: 07/20/18 10:31 Last Admin: 06/15/18 10:40 Dose: 1 cap Escitalopram Oxalate (Lexapro) 10 mg GT DAILY [facility] Last Admin: 06/19/18 09:07 Dose: 10 mg Glucagon (Glucagen Diagnostic Kit) 0 mg IM STAT PRN; Protocol PRN Reason: Hypoglycemia Protocol Hydrocortisone (Cortizone 1% Cream) 0 gm TOP TID PRN PRN Reason: Rash Hydromorphone HCl (Dilaudid) 1.5 mg IVP Q3 PRN PRN Reason: Pain, SEVERE (8-10) Last Admin: 06/19/18 07:50 Dose: 1.5 mg Vancomycin HCl 1.5 gm/ Sodium (Chloride) 500 mls @ 333.333 mls/hr IVPB Q12H [facility] PRN Reason: Protocol Last Admin: 06/19/18 00:18 Dose: 333.333 mls/hr Insulin Human Regular (Novolin R) 0 unit SC Q6 [facility] PRN Reason: Protocol Last Admin: 06/19/18 06:20 Dose: Not Given Ipratropium [place] (Atrovent) 0.5 mg IH RQ6 [facility] Last Admin: 06/19/18 08:35 Dose: 0.5 mg Lactobacillus Acidophilus (Bacid Acidophilus) 1 cap PEG BID [facility] Last Admin: 06/19/18 09:07 Dose: 1 cap Loperamide HCl (Imodium) 1 mg PO Q2H PRN PRN Reason: Diarrhea Last Admin: 06/18/18 10:03 Dose: 1 mg Lorazepam (Ativan) 1 mg IVP BID [facility] Last Admin: 06/19/18 09:08 Dose: 1 mg Metoprolol Tartrate (Lopressor) 5 mg IVP Q6H [facility] Last Admin: 06/19/18 09:26 Dose: Not Given Nicotine (Nicoderm Cq) 1 patch TD DAILY [facility] Last Admin: 06/19/18 09:07 Dose: 1 patch Ondansetron HCl (Zofran Inj) 4 mg IVP Q6H PRN PRN Reason: Nausea/Vomiting Last Admin: 06/18/18 11:50 Dose: 4 mg Pantoprazole Sodium (Protonix Susp) 40 mg PO Q24H [facility] Last Admin: 06/19/18 09:08 Dose: 40 mg Saliva Substitute (Mouth Kote 236 Ml) 0 ml MM Q6 PRN PRN Reason: Dry mouth Vitamin A (Vitamin A & D Oint Ud Foilpak) 1 ea TOP Q8 PRN PRN Reason: dry lips Last Admin: 05/20/18 11:10 Dose: 1 ea Vitamin E (Vitamin E 400 Units Cap) 400 intlu GT DAILY [facility] Last Admin: 06/19/18 09:07 Dose: 400 intlu - Labs Labs: 06/19/18 07:06 06/19/18 07:06 PT 14.3 SECONDS (9.7-12.2) H 06/10/18 07:05 INR 1.3 06/10/18 07:05 APTT 33 SECONDS (21-34) 05/25/18 06:16 Attending/Attestation - Attestation I have personally seen and examined this patient.: Yes I have fully participated in the care of the patient.: Yes I have reviewed all pertinent clinical information, including history, physical exam and plan: Yes Notes (Text): Pt was seen and examined at bedside Agree with above note and assessment Pt is clinically same c.w current mx repeat Labs in am Plan d.w pt in detail
--- NOTE | 2018-06-09 09:43 | CP.PCM.PN ---
<Sarbjit Torres M - Last Filed: 06/09/18 16:13> Subjective - Date & Time of Evaluation Date of Evaluation: 06/09/18 Time of Evaluation: 07:00 - Subjective Subjective: PGY 1 Medicine Progress Note for Dr. Turk Patient seen and examined at bedside. Patient appeared initially mildly anxious following her physical therapy session where she walked without a walker for the first time; however, was calmer following her ativan dose. Pt continues to have sharp intermittent abdominal pain remains unchanged from previous days; it increases when pain medications wear off and subsides when the medications are given. She continues to have occasional nausea, but this resolved with Zofran. She denies current symptoms of vomiting, constipation, chest pain, shortness of breath, dizziness, or numbness/tingling in her extremities. She notes her new wound vac, that was placed on 06/06/2018, started leaking yesterday and thus surgery is due to replace it today. Additionally overnight her NG tube was draining small amounts of bloody fluid, similar upon her original surgery. Objective - Vital Signs/Intake and Output Vital Signs (last 24 hours): Temp Pulse Resp BP Pulse Ox 98.2 F 99 H 20 123/80 100 06/09/18 07:35 06/09/18 07:35 06/09/18 07:35 06/09/18 07:35 06/09/18 07:35 Intake and Output: 06/09/18 06/09/18 06:59 18:59 Intake Total 500 Output Total 300 Balance 200 - Medications Medications: Current Medications Acetaminophen (Tylenol 650mg/20.3ml Solution Ud) 975 mg GT Q8 [facility] Last Admin: 06/09/18 05:40 Dose: 975 mg Cholestyramine Resin (Questran) 4 gm PO BID [facility] Last Admin: 06/08/18 17:26 Dose: 4 gm Dextrose (Dextrose 50% Inj) 0 ml IV STAT PRN; Protocol PRN Reason: Hypoglycemia Protocol Last Admin: 05/16/18 23:40 Dose: 50 ml Dextrose (Glutose 15) 0 gm PO ONCE PRN; Protocol PRN Reason: Hypoglycemia Protocol Diphenhydramine HCl (Benadryl) 25 mg IVP HS PRN PRN Reason: Insomnia Last Admin: 06/08/18 23:13 Dose: 25 mg Enoxaparin Sodium (Lovenox) 40 mg SC DAILY [facility] Last Admin: 06/08/18 10:24 Dose: 40 mg Ergocalciferol (Drisdol 50,000 Intl Units Cap) 1 cap PO Q7D [facility] Stop: 07/20/18 10:31 Last Admin: 06/08/18 10:55 Dose: 1 cap Escitalopram Oxalate (Lexapro) 10 mg GT DAILY [facility] Last Admin: 06/08/18 10:25 Dose: 10 mg Glucagon (Glucagen Diagnostic Kit) 0 mg IM STAT PRN; Protocol PRN Reason: Hypoglycemia Protocol Hydrocortisone (Cortizone 1% Cream) 0 gm TOP TID PRN PRN Reason: Rash Hydromorphone HCl (Dilaudid) 1.5 mg IVP Q3 PRN PRN Reason: Pain, SEVERE (8-10) Last Admin: 06/09/18 08:40 Dose: 1.5 mg Metronidazole (Flagyl) 500 mg in 100 mls @ 100 mls/hr IVPB Q8H [facility] PRN Reason: Protocol Last Admin: 06/09/18 04:35 Dose: 100 mls/hr Ciprofloxacin (Cipro 400mg/200ml Dsw) 400 mg in 200 mls @ 133 mls/hr IVPB Q12H [facility] PRN Reason: Protocol Last Admin: 06/09/18 02:20 Dose: 133 mls/hr Potassium Chloride (Potassium Chloride 20 Meq/100 Ml) 20 meq in 100 mls @ 50 mls/hr IVPB ONCE ONE Stop: 06/09/18 11:40 Insulin Human Regular (Novolin R) 0 unit SC Q6 [facility] PRN Reason: Protocol Last Admin: 06/09/18 07:24 Dose: Not Given Ipratropium [place] (Atrovent) 0.5 mg IH RQ6 [facility] Last Admin: 06/09/18 07:10 Dose: 0.5 mg Lactobacillus Acidophilus (Bacid Acidophilus) 1 cap PEG BID [facility] Last Admin: 06/08/18 23:00 Dose: Not Given Loperamide HCl (Imodium) 1 mg PO Q2H PRN PRN Reason: Diarrhea Last Admin: 06/08/18 17:26 Dose: 1 mg Lorazepam (Ativan) 1 mg IVP BID [facility] Last Admin: 06/08/18 17:14 Dose: 1 mg Metoprolol Tartrate (Lopressor) 5 mg IVP Q6H [facility] Last Admin: 06/09/18 05:28 Dose: 5 mg Nicotine (Nicoderm Cq) 1 patch TD DAILY [facility] Last Admin: 06/08/18 10:24 Dose: 1 patch Nystatin (Mycostatin Cream) 0 ea TOP TID [facility] Last Admin: 06/08/18 20:10 Dose: 1 applic Ondansetron HCl (Zofran Inj) 4 mg IVP Q6H PRN PRN Reason: Nausea/Vomiting Last Admin: 06/08/18 10:36 Dose: 4 mg Pantoprazole Sodium (Protonix Susp) 40 mg PO DAILY [facility] Last Admin: 06/08/18 17:26 Dose: 40 mg Saliva Substitute (Mouth Kote 236 Ml) 0 ml MM Q6 PRN PRN Reason: Dry mouth Vitamin A (Vitamin A & D Oint Ud Foilpak) 1 ea TOP Q8 PRN PRN Reason: dry lips Last Admin: 05/20/18 11:10 Dose: 1 ea - Labs Labs: 06/09/18 07:35 06/09/18 07:35 PT 16.0 SECONDS (9.7-12.2) H 05/26/18 06:32 INR 1.5 05/26/18 06:32 APTT 33 SECONDS (21-34) 05/25/18 06:16 - Constitutional Appears: Non-toxic, No Acute Distress - Head Exam Head Exam: ATRAUMATIC, NORMAL INSPECTION, NORMOCEPHALIC - Eye Exam Eye Exam: EOMI, Normal appearance - ENT Exam Additional comments: Left sided TMJ tenderness - Respiratory Exam Respiratory Exam: Clear to Ausculation Bilateral, NORMAL BREATHING PATTERN. absent: Rales, Rhonchi, Wheezes - Cardiovascular Exam Cardiovascular Exam: Tachycardia, +S1, +S2. absent: Irregular Rhythm, Murmur - GI/Abdominal Exam GI & Abdominal Exam: Guarding, Soft, Tenderness Additional comments: Wound vac in place at inferior edge of surgical incision with packing overlying remainder of surgical incision; yellow/green drainage noted around the packing; No surrounding erythema, edema, or tenderness; Ojeda in place at gastrostomy site with no surrounding erythema, edema or tenderness. - Extremities Exam Extremities Exam: Full ROM, Normal Capillary Refill, Normal Inspection. absent : Calf Tenderness, Pedal Edema, Tenderness - Psychiatric Exam Psychiatric exam: Normal Affect, Normal Mood - Skin Skin Exam: Dry, Intact, Normal Color, Warm Assessment and Plan - Assessment and Plan (Free Text) Assessment: Patient is a 37 year old female with a history of gastric bypass in 2013 who presented with several abdominal pain. She was found to have bowel ischemia 2/2 internal hernia. Patient underwent ex lap on 05/14 and again on 05/16. She will need a repeat surgery 4-6 weeks from the first. She currently has an NGT, is utilizing a ojeda at her gastrostomy site for nutrition/meds. Wound vac is in place over the incision site on 06/03, changed yesterday 06/06, with no more leakage at site, has a R arm PICC for Abx: 1) Ischemic bowel disease secondary to to internal hernias producing bowel obstruction Current Management: - wound vac from 06/06 began to leak on 06/08, will be replaced by surgery on 06/09 - scheduled for G- tube replacement with IR on 06/10, lovenox held in AM, tube feedings held after midnight, accuchecks Q6h, D5 1/2NS @ 75 ml/hr - repeat CBC @ 3pm for blood in NG tube suction, surgery made aware - PT/ INR ordered for AM - surgery 5 weeks after 05/16 for gastric by pass reversal - Summary of initial hospital course: Patient required emergent surgical intervention on 05/14/18 and transferred to ICU. Patient had a second surgery on 05/16/18. - Per operative note (05/14/18): Diagnostic laparoscopy, Exploratory laparotomy , Reduction of internal hernia, Lysis of adhesions, Drainage of abdominal collections, temporary abdominal closure, EGD. Ischemia of yenni limb, internal hernia. Naveed drain stitched to distal common limb - Per operative note (05/16/18): Re-exploration, Small bowel resection of ileum , small bowel resection of Yenni limb with gastrojejunostomy, reversal of bypass, primary anastomosis of ileum-ileum, ileum-ileum, and ileum-jejunum , Gastrostomy tube in bypassed stomach, EGD - Dr. Harley (surgery) on the case - Preoperative/intraoperative/postoperative management per surgery - wound vac to continuous suction and following output (changed on 06/06/18), will change on 06/09 2/2 leakage again - Following Bariatric surgeon (Dr. Mccray) recs---Will plan for exchange of ojeda G-tube for a larger size Gtube preferably at least 24Fr in size with IR. current recs no samaritan of continuity operation until 5 weeks after 05/16 surgery - Current drainage from mildine incision possibly d/t leak of tube feed contents from around gastrostomy tube vs fistula--wound vac in place - Current drains include: NGT (have on continuos suction), gastrostomy tube- temporary Ojeda in place after G-tube "fell out" on 05/30, wound vac replaced on 06/06/2018 - Cultures: - Peritoneal Fluid (05/14/18): Pseudomonas Aeruginosa sensitive to Meropenem - Wound Culture (05/23/18): Yudith albicans - Blood culture (05/15/18, 05/22/18): no growth - Urine culture (05/22/18): no growth - Incision site 05/31: Enterococcus faecalis, Acinetobacter baumannii Abxs: - Continue Cipro 400 mg IV q12hrs (started 06/02) - Continue Flagyl 500mg IVPB Q8H (active since 05/15/18) - Continue Nystatin cream TID for G-tube site (Yudith) - Discontinued Meropenem 1 gm IVPB Q8H (active since 05/15/18-05/27/18) Measure vitamin levels and replace as needed - Vit D <12.8- vit D 50,000 units q1wk x8 wks - B12 707, wnl - Folate 12.6, wnl - Vit A 42, wnl - Alpha Vit E 5.6, wnl PRN meds: - Continue Tylenol 975 mg liq q8hrs - Continue Dilaudid 1.5 mg IV q3hrs PRN - Continue Zofran 4mg IV q6hrs PRN - PT consulted- working with patient, current rec TCU following discharge 2) Tachycardia, persistent (110s-130s)- possibly etiologies include pain, infection, anxiety - She is being treated for Left G Tube fluid infection. - Continue ativan PRN. - Continue Dilaudid on board to be used PRN. - Continue Metoprolol tartrate 5 mg IV q6hrs with holding parameters (SBP <100, HR <60) 3) Hypokalemia - 3.5 in AM, replenished w/ 20 meq KCl IVP, f/u w/ Q2D labs 4) Hypomagnesemia - 1.5 in AM, replenished w/ 1gm in AM, will f/u w/ Q2D labs 4) Leukocytosis, trending downwards - likely secondary to to ischemic bowel secondary to small bowel obstruction and surgeries - Cultures: Peritoneal Fluid (05/14/18): Pseudomonas Aeruginosa sensitive to Meropenem Wound Culture (05/23/18): Yudith albicans Blood culture (05/15/18, 05/22/18): no growth Urine culture (05/22/18): no growth - Wound Cx from incision site 05/31: Enterococcus faecalis, Acinetobacter baumannii, on ciprofloxacin 400 mg (started 06/02) - Monitor CBC QOD 5) Diarrhea, acute, improving- suspect secondary to PO intake by pt - C. Diff (05/22, 05/24, 05/28): negative - Stool O&P (05/25/18): negative - Stool leukocytes (05/25/18): negative - per ID continue flagyl for 2-3 additional days due to leak around wound vac 6) Anxiety - Foreign Exchange Services Manager consulted- pt initially refused but then accepted - Psychiatry consulted (Dr. Reyez)- managing Ativan - Continue Ativan 1 mg IV BID - Continue Lexapro 10 mg PO daily (started 05/31) 7 )Anemia, acute, stable, pt denies blood in stool - Patient received a total of 2 PRBC (on 05/16) and 4 FFP (on 05/15 to 05/16) - Iron 16, TIBC 205, % sat 4.7, ferritin 75.3 - Monitor CBC every other day 8) Thombocytosis, improving (504)- suspect reactive to pain, surgery - Monitor CBC every other day 9) Diabetes Mellitus, Type 2, controlled - From prior note: Admittedly non-compliant, has not taken Januvia for one year - Accuchecks q6hrs - Hypoglycemic protocol - ISS regular - HbA1c 5.8 - History of gastric bypass surgery 10) Hypercholesterolemia- untreated - LDL 38, HDL 14, Chol 104, TG 226 - History of gastric bypass surgery 11) History of Hypertension, controlled- since gastric bypass has not taken meds - Metoprolol 5 mg IV q6hrs 12) History of Obesity, resolved - s/p gastric bypass surgery in 2013 13) History of Asthma - Chronic - Atrovent q6hrs 14) Nicotine use disorder - Chronic - From prior note: 1ppd x 20 yrs, 1/2 ppd x 3 yrs - Continue Nicoderm 1 patch TD QD 15) Prophylaxis - Hydrocortisone 1% Cream topical TID for Right Upper Inner Arm macular rash- improved - Vitamin A&D topical q8hrs PRN for dry lips - Saliva substitute q6hrs PRN for dry mouth - IVF: not indicated - VTE ppx: Lovenox 40 mg SC daily, SCDs - GI ppx: Protonix 40 mg IV BID, Florastor BID - Diet: feeds via gastrostomy - Osmolite (temporary Ojeda in place)- managed by surgery - Code status: full code <Doretha Turk V - Last Filed: 06/09/18 18:16> Objective - Vital Signs/Intake and Output Vital Signs (last 24 hours): Temp Pulse Resp BP Pulse Ox 98.3 F 105 H 20 113/78 97 06/09/18 15:00 06/09/18 15:00 06/09/18 15:00 06/09/18 15:00 06/09/18 15:00 Intake and Output: 06/09/18 06/09/18 06:59 18:59 Intake Total 500 700 Output Total 300 150 Balance 200 550 - Medications Medications: Current Medications Acetaminophen (Tylenol 650mg/20.3ml Solution Ud) 975 mg GT Q8 [facility] Last Admin: 06/09/18 14:39 Dose: 975 mg Cholestyramine Resin (Questran) 4 gm PO BID [facility] Last Admin: 06/09/18 10:33 Dose: 4 gm Dextrose (Dextrose 50% Inj) 0 ml IV STAT PRN; Protocol PRN Reason: Hypoglycemia Protocol Last Admin: 05/16/18 23:40 Dose: 50 ml Dextrose (Glutose 15) 0 gm PO ONCE PRN; Protocol PRN Reason: Hypoglycemia Protocol Diphenhydramine HCl (Benadryl) 25 mg IVP HS PRN PRN Reason: Insomnia Last Admin: 06/08/18 23:13 Dose: 25 mg Enoxaparin Sodium (Lovenox) 40 mg SC DAILY [facility] Last Admin: 06/09/18 10:31 Dose: 40 mg Ergocalciferol (Drisdol 50,000 Intl Units Cap) 1 cap PO Q7D [facility] Stop: 07/20/18 10:31 Last Admin: 06/08/18 10:55 Dose: 1 cap Escitalopram Oxalate (Lexapro) 10 mg GT DAILY [facility] Last Admin: 06/09/18 10:40 Dose: 10 mg Glucagon (Glucagen Diagnostic Kit) 0 mg IM STAT PRN; Protocol PRN Reason: Hypoglycemia Protocol Hydrocortisone (Cortizone 1% Cream) 0 gm TOP TID PRN PRN Reason: Rash Hydromorphone HCl (Dilaudid) 1.5 mg IVP Q3 PRN PRN Reason: Pain, SEVERE (8-10) Last Admin: 06/09/18 14:49 Dose: 1.5 mg Metronidazole (Flagyl) 500 mg in 100 mls @ 100 mls/hr IVPB Q8H [facility] PRN Reason: Protocol Last Admin: 06/09/18 11:55 Dose: 100 mls/hr Ciprofloxacin (Cipro 400mg/200ml Dsw) 400 mg in 200 mls @ 133 mls/hr IVPB Q12H [facility] PRN Reason: Protocol Last Admin: 06/09/18 14:40 Dose: 133 mls/hr Dextrose/Sodium Chloride (Dextrose 5%/0.45% Ns 1000 Ml) 1,000 mls @ 75 mls/hr IV .[id number] [facility] Last Admin: 06/09/18 14:38 Dose: 75 mls/hr Insulin Human Regular (Novolin R) 0 unit SC Q6 [facility] PRN Reason: Protocol Last Admin: 06/09/18 12:05 Dose: Not Given Ipratropium [place] (Atrovent) 0.5 mg IH RQ6 [facility] Last Admin: 06/09/18 07:10 Dose: 0.5 mg Lactobacillus Acidophilus (Bacid Acidophilus) 1 cap PEG BID [facility] Last Admin: 06/09/18 10:32 Dose: 1 cap Loperamide HCl (Imodium) 1 mg PO Q2H PRN PRN Reason: Diarrhea Last Admin: 06/09/18 10:33 Dose: 1 mg Lorazepam (Ativan) 1 mg IVP BID [facility] Last Admin: 06/09/18 09:49 Dose: 1 mg Metoprolol Tartrate (Lopressor) 5 mg IVP Q6H [facility] Last Admin: 06/09/18 16:13 Dose: 5 mg Nicotine (Nicoderm Cq) 1 patch TD DAILY [facility] Last Admin: 06/09/18 10:33 Dose: 1 patch Nystatin (Mycostatin Cream) 0 ea TOP TID [facility] Last Admin: 06/09/18 13:52 Dose: Not Given Ondansetron HCl (Zofran Inj) 4 mg IVP Q6H PRN PRN Reason: Nausea/Vomiting Last Admin: 06/09/18 10:30 Dose: 4 mg Pantoprazole Sodium (Protonix Susp) 40 mg PO DAILY [facility] Last Admin: 06/09/18 10:32 Dose: 40 mg Saliva Substitute (Mouth Kote 236 Ml) 0 ml MM Q6 PRN PRN Reason: Dry mouth Vitamin A (Vitamin A & D Oint Ud Foilpak) 1 ea TOP Q8 PRN PRN Reason: dry lips Last Admin: 05/20/18 11:10 Dose: 1 ea - Labs Labs: 06/09/18 07:35 06/09/18 07:35 PT 13.9 SECONDS (9.7-12.2) H 06/09/18 11:49 INR 1.3 06/09/18 11:49 APTT 33 SECONDS (21-34) 05/25/18 06:16 Assessment and Plan (1) Ischemic bowel disease Status: Acute (2) Obesity (BMI 30-39.9) Status: Acute (3) Small bowel obstruction Status: Acute (4) Prophylactic measure Status: Acute Attending/Attestation - Attestation I have personally seen and examined this patient.: Yes I have fully participated in the care of the patient.: Yes I have reviewed all pertinent clinical information, including history, physical exam and plan: Yes Notes (Text): Patient seen, examined and case discussed with day-time resident. Patient seen this morning. Patient reports diarrhea has improved, reports only 2 episodes of diarrhea. Patient reports drainage noted under the wound vac; patient to have wound vac redressed by surgery today. Patient worked with physical therapy today without assistive device. Patient to have ojeda exchange to bigger tube via IR tomorrow. Will hold feedings tonight for IR to exchange tube tomorrow. Lovenox held for exchange tomorrow. Patient noted to have "blood" from the NGt cannister unclear if blood or bile given dark color. We have put in for repeat CBC to monitor H/H. Since feeds will be held for tonight, we will place for accuchecks Q6H and gentle iv hydration to prevent hypoglycemic episode. Patient is on Ciprofloxacin for incisional wound infection since 06/03/18 and Flagyl 500mg IV Q8H. We are awaiting pending Vitamin Studies in attempt to nutritionally optimize the patient for surgery procedure in 5-6 weeks from last procedure. Also we have spoken with case management, patient has received Medicaid today. Electrolytes repleted Vitamin B1 and 6 are received-->pending results. Assessment/Plan (1) Ischemic bowel disease Assessment & Plan: * Dr. Harley (surgery) on the case-->help appreciated * Preoperative/intraoperative/postoperative management per surgery * Following Bariatric surgeon (Dr. Mccray) recommendations--current recommending no samaritan of continuity operation until 5 weeks after most recent surgery--patient needs to fully medically optimized prior to OR * Continue wound vac to suction --will change today 06/09/2018 * Continue tube feeds for nutrition * Continue NGT to intermittent suction * Continue antibiotics, PRN pain medications * Dr. Alvarado (GI) on the case-->help appreciated * Dr. Rivera (ID) on the case-->help appreciated * Brief summary of: * Patient has had 2 bloody bowel movements started 05/14/18. Patient's rectal: blood. She had reported abdominal pain has worsening since night of admission. Patient required emergent surgical intervention on 05/14/18 and transferred to ICU. Per operative note (05/14/18): Diagnostic laparoscopy, Exploratory laparotomy , Reduction of internal hernia, Lysis of adhesions, Drainage of abdominal collections, temporary abdominal closure, EGD * Ischemia of yenni limb, internal hernia. Naveed drain stitched to distal common limb * Patient underwent surgery again on 05/16/18.Re-exploration, Small bowel resection of ileum, small bowel resection of Yenni limb with gastrojejunostomy, reversal of bypass, primary anastomosis of ileum-ileum, ileum-ileum, and ileum- jejunum, Gastrostomy tube in bypassed stomach, EGD. Patient extubated 05/16/18. Patient is pending surgery intervention to restore GI motility in 5 weeks pending nutritional status. Measure vitamin levels and replace as needed * Vit D <12.8- vit D 50,000 units q1wk x8 wks * Prealbumin 18.1 * B12 707 * Folate 12.6 * F/u A, B1, B6, E-->pending * Drains included: NGT Tube in place, Ojeda in place of gastrostomy tube, left min removed 05/25/18; right min was removed 05/23/18; no ojeda; wound vac placed on * IV abx: * Flagyl 500mg IVPB Q8H (active since 05/15/18)-->Per ID to continue given diarrhea and anaerobic coverage for wound infection * Cultures: * Peritoneal Fluid : Pseudomonas Aeruginosa sensitive to Meropenem (05/15-05/27) * Wound Culture (05/23): Yudith Albican--->Diflucan since 05/22/18 until 05/30/18 * Incision site 05/31: Enterococcus faecalis, Acinetobacter baumannii---> Ciprofloxacin 400mg IVPB Q12H (active since 06/03/18) * Blood culture (05/15/18): no growth after 5 days X2 * Blood culture (05/22/18): no growth after 5 days X2 * Urine culture: no growth * PRNS: * Tylenol 975 mg liq q8hrs * Dilaudid 1.5 mg IV q3hrs PRN * Zofran 4mg IV q6hrs PRN * Ativan 1mg IV BID anxiety-->per psych * Diarrhea * Patient is Questran 4gm PO BID * Patient is on Flagyl to cover for C. Dif. C. Dif Negative X3 Status: Acute (2) Small bowel obstruction Assessment & Plan: * Secondary to hernia * Further details noted in #1 Status: Acute (3) Obesity (BMI 30-39.9) Assessment & Plan: * s/p gastric bypass surgery in 2013 * Operative note (2013): Yenni-en-Y gastric bypass surgery * Given nature of ischemic bowel affecting portioning of the gastric limb, she will need to wait at least 5 weeks to restoring GI motility when she is nutritionally optimized Status: Acute (4) Status post gastric bypass for obesity Assessment & Plan: * status post gastric bypass 2013 * Operative note (2013): Yenni-en-Y gastric bypass surgery * Patient noncomplaint with following up postoperative. Status: Acute (5) History of Asthma Assessment & Plan: * Patient not in acute exacerbation prior to OR * Atrovent Q6H (6) Diabetes Mellitus (Type 2); controlled Assessment & Plan: * From prior note: * Admittedly non-compliant - has not taken Januvia for one year * Accuchecks Q6H * Hypoglycemic protocol * HbA1c - 6.3 (03/10/17) * hgba1c: 5.8 * History of gastric bypass surgery (8) Hx of HTN (hypertension) Assessment & Plan: * Since Gastric Bypass has not taken meds (9) Hx of Hypothyroid Assessment & Plan: * From prior note: * Pt admits non-compliance (10) Hypercholesterolemia Assessment & Plan: * From prior note: * Pt not taking meds * LDL 138, HDL 67, Tchol 220, Trig 112 * History of gastric bypass surgery (11) Anxiety Assessment & Plan: * Psychiatry (Dr. 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 Assessment & Plan: * 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 and from my prior note from last hospitalization (13) Smoker Assessment & Plan: * From my prior note: 1ppd x 20 yrs, 1/2 ppd x 3 yrs * Nicoderm 1 patch TD patchy (14) Tachycardia Assessment & Plan: * Lopressor 5mg IVQ6H [facility] (15) Prophylactic measure Assessment & Plan: * Bacid Acidophilus 1 cap PEG BID * Lovenox 40mg subqdaily for DVT ppx-->hold for IR exchange of tube * PICC line 06/01/18 * protonix 40mg IV Qdaily * Vitamin A&D ointment 1 each top Q8H * NGT Tube * Ojeda in place of gastro tube * Wound vac 06/03/18 * hold feeds for tonight for anticipated IR exchange of ojeda for bigger tube to replace gastrostomy tube * Feed orders: * Patient is currently on Osmolite via G Tube which has the following components. * MCT Oil (benefits in situations with malabsorption and is low residue) * 1440 calories; 70 gm protein; 914 ml free water * Should at any time the patient require TPN then we can try the following options: * 83 ml/hr: 2100 tete, 100 gm protein * 63 ml/hr: 1575 tete, 75 gm protein * 20% Intrilipid every other day with either one of the TPN rates mentioned above Status: Acute Disposition: Follow-up remain Vitamin levels for repletion. hold feeds tonight for anticipation IR exchange of ojeda for gastrostomy tube. Patient has received Medicaid today. Monitor diarrhea. Lovenox on hold for IR exchange; resume post procedure.
[2018-06-09] MEDS ORDERED: Magnesium Sulfate 1 gm in D5W 1 GM/100 ML BAG IVPB ONE (09:45)
[2018-06-09] MEDS: Enoxaparin 40 mg Syringe SC SCH (10:31)
[2018-06-09] MEDS: Pantoprazole 40 mg Susp UD PO SCH (10:32)
[2018-06-09] MEDS: Lactobacillus Acidophilus 500 MU Cap PEG SCH ×2 (10:32→17:54)
[2018-06-09] MEDS: Cholestyramine 4 gm/Pkt UD PO SCH ×2 (10:33→17:54)
[2018-06-09] MEDS: Loperamide Hydrochloride 1 mg/5 ml Cup PO PRN (10:33)
[2018-06-09] MEDS: Nystatin 100,000 Units/gm Cream(15 gm) TOP SCH ×3 (10:59→17:55)
[2018-06-09 12:06] LABS: INR 1.3; PROTHROMBIN TIME 13.9 SECONDS (9.7-12.2)
[2018-06-09] MEDS: Dextrose 5%/0.45% NS 1,000 ML IV SCH (14:38)
[2018-06-09 20:40] LABS: BASO # 0.1 K/uL (0.0-0.2); BASO % 0.8 % (0.0-2.0); EOS # 0.2 K/uL (0.0-0.7); EOS % 2.9 % (0.0-4.0); HEMOGLOBIN 8.4 g/dL (11.0-16.0); LYMPH % 25.4 % (20.0-40.0); MEAN CELL VOLUME 84.3 fL (81.0-99.0); MEAN CORPUSCULAR HEMOGLOBIN 27.8 pg (27.0-31.0); MONO # 0.8 K/uL (0.0-0.8); MONO % 10.2 % (0.0-10.0); NEUT # 4.7 K/uL (1.8-7.0); NEUT % 60.7 % (50.0-75.0); RBC 3.01 Mil/uL (3.80-5.20); WHITE BLOOD COUNT 7.8 K/uL (4.8-10.8)
[2018-06-09] MEDS: DiphenhydrAMINE 50 mg/ml Inj IVP PRN (20:54)
[2018-06-10] MEDS: Ipratropium 0.02% Inhal Soln (0.5 mg/2.5 ml) UD IH SCH ×4 (01:15→19:31)
[2018-06-10] MEDS: Ciprofloxacin 400mg/200ml D5W 400 MG/200 ML BAG IVPB SCH (02:24)
[2018-06-10] MEDS: Dextrose 5%/0.45% NS 1,000 ML IV SCH ×2 (03:00→14:03)
[2018-06-10] MEDS: Metoprolol 1 mg/ml Inj IVP SCH ×4 (03:20→21:18)
[2018-06-10] MEDS: metroNIDAZOLE IV 500 mg/100 ml 500 MG/100 ML BAG IVPB SCH ×3 (03:23→19:10)
--- NOTE | 2018-06-10 06:11 | CP.PCM.PN ---
<Sarbjit Torres M - Last Filed: 06/10/18 17:53> Subjective - Date & Time of Evaluation Date of Evaluation: 06/10/18 Time of Evaluation: 07:00 - Subjective Subjective: PGY-1 Medicine Progress Note for Dr. Turk Patient seen and examined today at bedside. Patient is in no acute distress. She notes her abdominal pain remains unchanged; the sharp stabbing central abdominal pain reoccurs when her medication wears offs and subsides when she gets her pain medications. She notes she has had a few episodes of nausea throughout the evening, well controlled with Zofran. Lastly her left TMJ discomfort remains unchanged. She denies current symptoms of vomiting, constipation, chest pain, shortness of breath, dizziness, or numbness/tingling in her extremities. She had 2 episodes of diarrhea overnight. Her wound vac, replaced by surgery for the second time on 06/09/2018, continues to leak. She notes she has had no recurrence of blood in her NG tube. Objective - Vital Signs/Intake and Output Vital Signs (last 24 hours): Temp Pulse Resp BP Pulse Ox 98.1 F 99 H 20 123/83 98 06/09/18 23:25 06/09/18 23:25 06/09/18 23:25 06/09/18 23:25 06/09/18 23:25 Intake and Output: 06/09/18 06/10/18 18:59 06:59 Intake Total 700 1025 Output Total 150 154 Balance 550 871 - Medications Medications: Current Medications Acetaminophen (Tylenol 650mg/20.3ml Solution Ud) 975 mg GT Q8 [facility] Last Admin: 06/09/18 23:00 Dose: 975 mg Cholestyramine Resin (Questran) 4 gm PO BID [facility] Last Admin: 06/09/18 17:54 Dose: 4 gm Dextrose (Dextrose 50% Inj) 0 ml IV STAT PRN; Protocol PRN Reason: Hypoglycemia Protocol Last Admin: 05/16/18 23:40 Dose: 50 ml Dextrose (Glutose 15) 0 gm PO ONCE PRN; Protocol PRN Reason: Hypoglycemia Protocol Diphenhydramine HCl (Benadryl) 25 mg IVP HS PRN PRN Reason: Insomnia Last Admin: 06/09/18 20:54 Dose: 25 mg Enoxaparin Sodium (Lovenox) 40 mg SC DAILY [facility] Last Admin: 06/09/18 10:31 Dose: 40 mg Ergocalciferol (Drisdol 50,000 Intl Units Cap) 1 cap PO Q7D [facility] Stop: 07/20/18 10:31 Last Admin: 06/08/18 10:55 Dose: 1 cap Escitalopram Oxalate (Lexapro) 10 mg GT DAILY [facility] Last Admin: 06/09/18 10:40 Dose: 10 mg Glucagon (Glucagen Diagnostic Kit) 0 mg IM STAT PRN; Protocol PRN Reason: Hypoglycemia Protocol Hydrocortisone (Cortizone 1% Cream) 0 gm TOP TID PRN PRN Reason: Rash Hydromorphone HCl (Dilaudid) 1.5 mg IVP Q3 PRN PRN Reason: Pain, SEVERE (8-10) Last Admin: 06/10/18 03:18 Dose: 1.5 mg Metronidazole (Flagyl) 500 mg in 100 mls @ 100 mls/hr IVPB Q8H XAVIER PRN Reason: Protocol Last Admin: 06/10/18 03:23 Dose: 100 mls/hr Ciprofloxacin (Cipro 400mg/200ml Dsw) 400 mg in 200 mls @ 133 mls/hr IVPB Q12H XAVIER PRN Reason: Protocol Last Admin: 06/10/18 02:24 Dose: 133 mls/hr Dextrose/Sodium Chloride (Dextrose 5%/0.45% Ns 1000 Ml) 1,000 mls @ 75 mls/hr IV .[id number] [facility] Last Admin: 06/09/18 14:38 Dose: 75 mls/hr Insulin Human Regular (Novolin R) 0 unit SC Q6 [facility]IER PRN Reason: Protocol Last Admin: 06/09/18 23:00 Dose: Not Given Ipratropium [place] (Atrovent) 0.5 mg IH RQ6 [facility] Last Admin: 06/10/18 01:15 Dose: Not Given Lactobacillus Acidophilus (Bacid Acidophilus) 1 cap PEG BID [facility] Last Admin: 06/09/18 17:54 Dose: 1 cap Loperamide HCl (Imodium) 1 mg PO Q2H PRN PRN Reason: Diarrhea Last Admin: 06/09/18 10:33 Dose: 1 mg Lorazepam (Ativan) 1 mg IVP BID [facility] Last Admin: 06/09/18 17:53 Dose: 1 mg Metoprolol Tartrate (Lopressor) 5 mg IVP Q6H [facility] Last Admin: 06/10/18 03:20 Dose: 5 mg Nicotine (Nicoderm Cq) 1 patch TD DAILY [facility] Last Admin: 06/09/18 10:33 Dose: 1 patch Nystatin (Mycostatin Cream) 0 ea TOP TID [facility] Last Admin: 06/09/18 17:55 Dose: Not Given Ondansetron HCl (Zofran Inj) 4 mg IVP Q6H PRN PRN Reason: Nausea/Vomiting Last Admin: 06/09/18 10:30 Dose: 4 mg Pantoprazole Sodium (Protonix Susp) 40 mg PO DAILY [facility] Last Admin: 06/09/18 10:32 Dose: 40 mg Saliva Substitute (Mouth Kote 236 Ml) 0 ml MM Q6 PRN PRN Reason: Dry mouth Vitamin A (Vitamin A & D Oint Ud Foilpak) 1 ea TOP Q8 PRN PRN Reason: dry lips Last Admin: 05/20/18 11:10 Dose: 1 ea - Labs Labs: 06/09/18 20:31 06/09/18 07:35 PT 13.9 SECONDS (9.7-12.2) H 06/09/18 11:49 INR 1.3 06/09/18 11:49 APTT 33 SECONDS (21-34) 05/25/18 06:16 - Constitutional Appears: Non-toxic, No Acute Distress - Head Exam Head Exam: NORMAL INSPECTION, NORMOCEPHALIC Additional comments: NG Tube in place draining clear fluid - Eye Exam Eye Exam: EOMI, Normal appearance - ENT Exam ENT Exam: Mucous Membranes Dry - Respiratory Exam Respiratory Exam: Clear to Ausculation Bilateral, NORMAL BREATHING PATTERN. absent: Rales, Rhonchi, Wheezes - Cardiovascular Exam Cardiovascular Exam: Tachycardia, +S1, +S2. absent: Murmur - GI/Abdominal Exam GI & Abdominal Exam: Soft, Tenderness Additional comments: Wound vac in place at inferior edge of surgical incision; yellow/green drainage noted above the wound vac below the packing placed over the superior edge of the surgical incision; No surrounding erythema, edema, or tenderness; Ojeda in place at gastrostomy site with no surrounding erythema, edema or tenderness. - Extremities Exam Extremities Exam: Full ROM, Normal Inspection. absent: Calf Tenderness, Pedal Edema, Tenderness - Neurological Exam Neurological Exam: Alert, Awake, Oriented x3 - Psychiatric Exam Psychiatric exam: Normal Affect, Normal Mood - Skin Skin Exam: Dry, Intact, Normal Color, Warm Assessment and Plan - Assessment and Plan (Free Text) Assessment: Patient is a 37 year old female with a history of gastric bypass in 2013 who presented with several abdominal pain. She was found to have bowel ischemia 2/2 internal hernia. Patient underwent ex lap on 05/14 and again on 05/16. She will need a repeat surgery 4-6 weeks from the first. She currently has an NGT, is utilizing a ojeda at her gastrostomy site for nutrition/meds. Wound vac is in place over the incision site on 06/03, changed multiple times due to leakage, has a R arm PICC for Abx: Ischemic bowel disease secondary to to internal hernias producing bowel obstruction Current Management: - wound vac from 06/06, replaced 06/09 & will get replaced 06/10 due to leakage - Pt had IR procedure to replace G tube, [address], continue feeds - surgery 5 weeks after 05/16 for gastric by pass reversal - Labs Q2D per surgery - F/u B1 & B6 vitamins - Summary of initial hospital course: Patient required emergent surgical intervention on 05/14/18 and transferred to ICU. Patient had a second surgery on 05/16/18. - Per operative note (05/14/18): Diagnostic laparoscopy, Exploratory laparotomy , Reduction of internal hernia, Lysis of adhesions, Drainage of abdominal collections, temporary abdominal closure, EGD. Ischemia of yenni limb, internal hernia. [place] drain stitched to distal common limb - Per operative note (05/16/18): Re-exploration, Small bowel resection of ileum , small bowel resection of Yenni limb with gastrojejunostomy, reversal of bypass, primary anastomosis of ileum-ileum, ileum-ileum, and ileum-jejunum , Gastrostomy tube in bypassed stomach, EGD - Dr. Harley (surgery) on the case - Preoperative/intraoperative/postoperative management per surgery - wound vac to continuous suction and following output (changed on 06/06/18), will change on 06/09 2/2 leakage again - Following Bariatric surgeon (Dr. Mccray) recs---Will plan for exchange of ojeda G-tube for a larger size Gtube preferably at least 24Fr in size with IR. current recs no adventist of continuity operation until 5 weeks after 05/16 surgery - Current drainage from mildine incision possibly d/t leak of tube feed contents from around gastrostomy tube vs fistula--wound vac in place - Current drains include: NGT (have on continuos suction), gastrostomy tube- temporary Ojeda in place after G-tube "fell out" on 05/30, wound vac replaced on 06/06/2018 - Cultures: - Peritoneal Fluid (05/14/18): Pseudomonas Aeruginosa sensitive to Meropenem - Wound Culture (05/23/18): Yudith albicans - Blood culture (05/15/18, 05/22/18): no growth - Urine culture (05/22/18): no growth - Incision site 05/31: Enterococcus faecalis, Acinetobacter baumannii Abxs: - Continue Cipro 400 mg IV q12hrs (started 06/02) - Continue Flagyl 500mg IVPB Q8H (active since 05/15/18) - Continue Nystatin cream TID for G-tube site (Yudith) - Discontinued Meropenem 1 gm IVPB Q8H (active since 05/15/18-05/27/18) Measure vitamin levels and replace as needed - Vit D <12.8- vit D 50,000 units q1wk x8 wks - B12 707, wnl - Folate 12.6, wnl - Vit A 42, wnl - Alpha Vit E 5.6, wnl PRN meds: - Continue Tylenol 975 mg liq q8hrs - Continue Dilaudid 1.5 mg IV q3hrs PRN - Continue Zofran 4mg IV q6hrs PRN - PT consulted- working with patient, current rec TCU following discharge Tachycardia, persistent (110s-130s)- possibly etiologies include pain, infection , anxiety - She is being treated for Left G Tube fluid infection. - Continue ativan PRN. - Continue Dilaudid on board to be used PRN. - Continue Metoprolol tartrate 5 mg IV q6hrs with holding parameters (SBP <100, HR <60) Diarrhea, acute, improving- suspect secondary to PO intake by pt - C. Diff (05/22, 05/24, 05/28): negative - Stool O&P (05/25/18): negative - Stool leukocytes (05/25/18): negative - per ID continue flagyl due to leak around wound vac Anxiety - Mapping Analyst consulted- pt initially refused but then accepted - Psychiatry consulted (Dr. Reyez)- managing Ativan - Continue Ativan 1 mg IV BID - Continue Lexapro 10 mg PO daily (started 05/31) Anemia, acute, stable, pt denies blood in stool - Patient received a total of 2 PRBC (on 05/16) and 4 FFP (on 05/15 to 05/16) - Iron 16, TIBC 205, % sat 4.7, ferritin 75.3 - Monitor CBC Q2D Thombocytosis, improving (504)- suspect reactive to pain, surgery - Resolved - Monitor CBC Q2D Diabetes Mellitus, Type 2, controlled - From prior note: Admittedly non-compliant, has not taken Januvia for one year - Accuchecks q6hrs - Hypoglycemic protocol - ISS regular - HbA1c 5.8 - History of gastric bypass surgery Hypercholesterolemia- untreated - LDL 38, HDL 14, Chol 104, TG 226 - History of gastric bypass surgery History of Hypertension, controlled- since gastric bypass has not taken meds - Metoprolol 5 mg IV q6hrs History of Obesity, resolved - s/p gastric bypass surgery in 2013 History of Asthma - Chronic - Atrovent q6hrs Nicotine use disorder - Chronic - From prior note: 1ppd x 20 yrs, 1/2 ppd x 3 yrs - Continue Nicoderm 1 patch TD QD Hypokalemia - Resolved - 3.6 WNL on 06/10 - 3.5 on 06/09, replenished w/ 20 meq KCl IVP, f/u w/ Q2D labs Hypomagnesemia - Resolved - 1.6 on 06/10 repleanished w/ 1gm in AM, will f/u w/ Q2D labs - 1.5 on 06/09, replenished w/ 1gm in AM, will f/u w/ Q2D labs Leukocytosis, trending downwards - likely secondary to to ischemic bowel secondary to small bowel obstruction and surgeries - Resolved - Cultures: Peritoneal Fluid (05/14/18): Pseudomonas Aeruginosa sensitive to Meropenem Wound Culture (05/23/18): Yudith albicans Blood culture (05/15/18, 05/22/18): no growth Urine culture (05/22/18): no growth - Wound Cx from incision site 05/31: Enterococcus faecalis, Acinetobacter baumannii, on ciprofloxacin 400 mg (started 06/02) - Monitor CBC Q2D Prophylaxis - Hydrocortisone 1% Cream topical TID for Right Upper Inner Arm macular rash- improved - Vitamin A&D topical q8hrs PRN for dry lips - Saliva substitute q6hrs PRN for dry mouth - IVF: not indicated - VTE ppx: Lovenox 40 mg SC daily, SCDs - GI ppx: Protonix 40 mg IV BID, Florastor BID - Diet: feeds via gastrostomy - Osmolite (temporary Ojeda in place)- managed by surgery - Code status: full code <Doretha Turk V - Last Filed: 06/10/18 21:07> Objective - Vital Signs/Intake and Output Vital Signs (last 24 hours): Temp Pulse Resp BP Pulse Ox 98.3 F 105 H 20 123/85 99 06/10/18 15:02 06/10/18 16:00 06/10/18 15:02 06/10/18 15:02 06/10/18 15:02 Intake and Output: 06/10/18 06/11/18 18:59 06:59 Intake Total 850 Output Total 50 Balance 800 - Medications Medications: Current Medications Acetaminophen (Tylenol 650mg/20.3ml Solution Ud) 975 mg GT Q8 [facility] Last Admin: 06/10/18 13:50 Dose: Not Given Cholestyramine Resin (Questran) 4 gm PO BID [facility] Last Admin: 06/10/18 17:58 Dose: 4 gm Dextrose (Dextrose 50% Inj) 0 ml IV STAT PRN; Protocol PRN Reason: Hypoglycemia Protocol Last Admin: 05/16/18 23:40 Dose: 50 ml Dextrose (Glutose 15) 0 gm PO ONCE PRN; Protocol PRN Reason: Hypoglycemia Protocol Diphenhydramine HCl (Benadryl) 25 mg IVP HS PRN PRN Reason: Insomnia Last Admin: 06/09/18 20:54 Dose: 25 mg Enoxaparin Sodium (Lovenox) 40 mg SC DAILY [facility] Last Admin: 06/09/18 10:31 Dose: 40 mg Ergocalciferol (Drisdol 50,000 Intl Units Cap) 1 cap PO Q7D [facility] Stop: 07/20/18 10:31 Last Admin: 06/08/18 10:55 Dose: 1 cap Escitalopram Oxalate (Lexapro) 10 mg GT DAILY [facility] Glucagon (Glucagen Diagnostic Kit) 0 mg IM STAT PRN; Protocol PRN Reason: Hypoglycemia Protocol Hydrocortisone (Cortizone 1% Cream) 0 gm TOP TID PRN PRN Reason: Rash Hydromorphone HCl (Dilaudid) 1.5 mg IVP Q3 PRN PRN Reason: Pain, SEVERE (8-10) Last Admin: 06/10/18 18:59 Dose: 1.5 mg Metronidazole (Flagyl) 500 mg in 100 mls @ 100 mls/hr IVPB Q8H [facility] PRN Reason: Protocol Last Admin: 06/10/18 19:10 Dose: 100 mls/hr Insulin Human Regular (Novolin R) 0 unit SC Q6 [facility] PRN Reason: Protocol Last Admin: 06/10/18 17:30 Dose: Not Given Ipratropium [place] (Atrovent) 0.5 mg IH RQ6 [facility] Last Admin: 06/10/18 19:31 Dose: Not Given Lactobacillus Acidophilus (Bacid Acidophilus) 1 cap PEG BID [facility] Last Admin: 06/10/18 17:58 Dose: 1 cap Loperamide HCl (Imodium) 1 mg PO Q2H PRN PRN Reason: Diarrhea Last Admin: 06/09/18 10:33 Dose: 1 mg Lorazepam (Ativan) 1 mg IVP BID [facility] Last Admin: 06/10/18 17:58 Dose: 1 mg Metoprolol Tartrate (Lopressor) 5 mg IVP Q6H [facility] Last Admin: 06/10/18 16:36 Dose: 5 mg Nicotine (Nicoderm Cq) 1 patch TD DAILY [facility] Last Admin: 06/10/18 11:59 Dose: 1 patch Nystatin (Mycostatin Cream) 0 ea TOP TID [facility] Last Admin: 06/10/18 17:52 Dose: Not Given Ondansetron HCl (Zofran Inj) 4 mg IVP Q6H PRN PRN Reason: Nausea/Vomiting Last Admin: 06/10/18 06:28 Dose: 4 mg Pantoprazole Sodium (Protonix Susp) 40 mg PO DAILY [facility] Last Admin: 06/10/18 13:50 Dose: Not Given Saliva Substitute (Mouth Kote 236 Ml) 0 ml MM Q6 PRN PRN Reason: Dry mouth Vitamin A (Vitamin A & D Oint Ud Foilpak) 1 ea TOP Q8 PRN PRN Reason: dry lips Last Admin: 05/20/18 11:10 Dose: 1 ea - Labs Labs: 06/10/18 07:05 06/10/18 07:05 PT 14.3 SECONDS (9.7-12.2) H 06/10/18 07:05 INR 1.3 06/10/18 07:05 APTT 33 SECONDS (21-34) 05/25/18 06:16 Assessment and Plan (1) Ischemic bowel disease Status: Acute (2) Obesity (BMI 30-39.9) Status: Acute (3) Small bowel obstruction Status: Acute (4) Prophylactic measure Status: Acute Attending/Attestation - Attestation I have personally seen and examined this patient.: Yes I have fully participated in the care of the patient.: Yes I have reviewed all pertinent clinical information, including history, physical exam and plan: Yes Notes (Text): Patient seen, examined and case discussed with day-time resident. Patient seen this afternoon. Patient reports diarrhea has improved, reports only 2 episodes of diarrhea. Patient feeds were held at midnight with gentle IV hydration for IR exchange of ojeda for the former gastrstomy tube. Patient has new tube present no leaking present. Resident will f/u with IR to ensure we can resume feedings and meds through the new 24 indonesian gauge tube. Patient noted mild leaking from the wound vac. Per surgery note there is over the superior portion which they will reinforce with larger dressing. Will restart dvt ppx post IR placement of drain. I spoke with patient's mother and son at bedside, with patient's permission, patient is having less diarrhea, and remains on IV abx to cover for wound infection. We are awaiting vitamin levels yet to result in order to be able to replete. We have not changed her pain regiment nor her ativan per psych. I did re-emphasize with patient and mother her pain is both from her narcotic dependence and recovery from surgery; however also please note patient is very comfortable at bedside. She is not writhing in pain. She is aware that she will eventually need to be tapered off. NGT no noted blood. will continue to monitor. Assessment/Plan (1) Ischemic bowel disease Assessment & Plan: * Dr. Harley (surgery) on the case-->help appreciated * Preoperative/intraoperative/postoperative management per surgery * Following Bariatric surgeon (Dr. Mccray) recommendations--current recommending no adventist of continuity operation until 5 weeks after most recent surgery--patient needs to fully medically optimized prior to OR * Continue wound vac to suction --will change today 06/09/2018 * Continue tube feeds for nutrition * Continue NGT to intermittent suction * Continue antibiotics, PRN pain medications * Dr. Alvarado (GI) on the case-->help appreciated * Dr. Rivera (ID) on the case-->help appreciated * Brief summary of: * Patient has had 2 bloody bowel movements started 05/14/18. Patient's rectal: blood. She had reported abdominal pain has worsening since night of admission. Patient required emergent surgical intervention on 05/14/18 and transferred to ICU. Per operative note (05/14/18): Diagnostic laparoscopy, Exploratory laparotomy , Reduction of internal hernia, Lysis of adhesions, Drainage of abdominal collections, temporary abdominal closure, EGD * Ischemia of yenni limb, internal hernia. [place] drain stitched to distal common limb * Patient underwent surgery again on 05/16/18.Re-exploration, Small bowel resection of ileum, small bowel resection of Yenni limb with gastrojejunostomy, reversal of bypass, primary anastomosis of ileum-ileum, ileum-ileum, and ileum- jejunum, Gastrostomy tube in bypassed stomach, EGD. Patient extubated 05/16/18. Patient is pending surgery intervention to restore GI motility in 5 weeks pending nutritional status. Measure vitamin levels and replace as needed * Vit D <12.8- vit D 50,000 units q1wk x8 wks * Prealbumin 18.1 * B12 707 * Folate 12.6 * F/u A, B1, B6, E-->pending * Drains included: NGT Tube in place, Ojeda in place of gastrostomy tube, left min removed 05/25/18; right min was removed 05/23/18; no ojeda; wound vac placed on * IV abx: * Flagyl 500mg IVPB Q8H (active since 05/15/18)-->Per ID to continue given diarrhea and anaerobic coverage for wound infection * Cultures: * Peritoneal Fluid : Pseudomonas Aeruginosa sensitive to Meropenem (05/15-05/27) * Wound Culture (05/23): Yudith Albican--->Diflucan since 05/22/18 until 05/30/18 * Incision site 05/31: Enterococcus faecalis, Acinetobacter baumannii---> Ciprofloxacin 400mg IVPB Q12H (active since 06/03/18) * Blood culture (05/15/18): no growth after 5 days X2 * Blood culture (05/22/18): no growth after 5 days X2 * Urine culture: no growth * PRNS: * Tylenol 975 mg liq q8hrs * Dilaudid 1.5 mg IV q3hrs PRN * Zofran 4mg IV q6hrs PRN * Ativan 1mg IV BID anxiety-->per psych * Diarrhea * Patient is Questran 4gm PO BID * Patient is on Flagyl to cover for C. Dif. C. Dif Negative X3 Status: Acute (2) Small bowel obstruction Assessment & Plan: * Secondary to hernia * Further details noted in #1 Status: Acute (3) Obesity (BMI 30-39.9) Assessment & Plan: * s/p gastric bypass surgery in 2013 * Operative note (2013): Yenni-en-Y gastric bypass surgery * Given nature of ischemic bowel affecting portioning of the gastric limb, she will need to wait at least 5 weeks to restoring GI motility when she is nutritionally optimized Status: Acute (4) Status post gastric bypass for obesity Assessment & Plan: * status post gastric bypass 2013 * Operative note (2013): Yenni-en-Y gastric bypass surgery * Patient noncomplaint with following up postoperative. Status: Acute (5) History of Asthma Assessment & Plan: * Patient not in acute exacerbation prior to OR * Atrovent Q6H (6) Diabetes Mellitus (Type 2); controlled Assessment & Plan: * From prior note: * Admittedly non-compliant - has not taken Januvia for one year * Accuchecks Q6H * Hypoglycemic protocol * HbA1c - 6.3 (03/10/17) * hgba1c: 5.8 * History of gastric bypass surgery (8) Hx of HTN (hypertension) Assessment & Plan: * Since Gastric Bypass has not taken meds (9) Hx of Hypothyroid Assessment & Plan: * From prior note: * Pt admits non-compliance (10) Hypercholesterolemia Assessment & Plan: * From prior note: * Pt not taking meds * LDL 138, HDL 67, Tchol 220, Trig 112 * History of gastric bypass surgery (11) Anxiety Assessment & Plan: * Psychiatry (Dr. 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 Assessment & Plan: * 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 and from my prior note from last hospitalization (13) Smoker Assessment & Plan: * From my prior note: 1ppd x 20 yrs, 1/2 ppd x 3 yrs * Nicoderm 1 patch TD patchy (14) Tachycardia Assessment & Plan: * Lopressor 5mg IVQ6H xavier (15) Prophylactic measure Assessment & Plan: * Bacid Acidophilus 1 cap PEG BID * Lovenox 40mg subqdaily for DVT ppx-->resume * PICC line 06/01/18 * protonix 40mg IV Qdaily * Vitamin A&D ointment 1 each top Q8H * NGT Tube * IR exchange of Ojeda to 24 indonesian gauge 06/10/18 * Wound vac 06/03/18 placed * Dressing changed * Feed orders: * Patient is currently on Osmolite via G Tube which has the following components. * MCT Oil (benefits in situations with malabsorption and is low residue) * 1440 calories; 70 gm protein; 914 ml free water * Should at any time the patient require TPN then we can try the following options: * 83 ml/hr: 2100 tete, 100 gm protein * 63 ml/hr: 1575 tete, 75 gm protein * 20% Intrilipid every other day with either one of the TPN rates mentioned above Status: Acute Disposition: Follow-up remain Vitamin levels for repletion. Patient has received Medicaid yesterday. Monitor diarrhea. Resume dvt ppx post IR exchange ; patient is pain controlled.
[2018-06-10] MEDS: Acetaminophen 650mg/20.3ml solution UD GT SCH ×3 (06:31→21:05)
[2018-06-10] MEDS: (Novolin R) Insulin Human Regular 100 units/ml vial SC SCH ×3 (06:42→17:30)
[2018-06-10 07:29] LABS: INR 1.3; PROTHROMBIN TIME 14.3 SECONDS (9.7-12.2)
[2018-06-10 07:32] LABS: ALB/GLOB RATIO 0.9 (1.0-2.1); ALBUMIN 2.6 g/dL (3.5-5.0); ALT/SGPT 21 U/L (9-52); AST/SGOT 29 U/L (14-36); BLOOD UREA NITROGEN 5 mg/dL (7-17); CALCIUM 8.3 mg/dl (8.6-10.4); GFR NON-AFRICAN AMERICAN > 60
[2018-06-10 07:38] LABS: BASO % 0.6 % (0.0-2.0); EOS # 0.3 K/uL (0.0-0.7); EOS % 3.5 % (0.0-4.0); LYMPH # 2.1 K/uL (1.0-4.3); LYMPH % 25.7 % (20.0-40.0); MEAN CELL VOLUME 84.8 fL (81.0-99.0); MEAN CORPUSCULAR HEMOGLOBIN 28.8 pg (27.0-31.0); MEAN CORPUSCULAR HGB CONC 33.9 g/dL (33.0-37.0); MEAN PLATELET VOLUME 7.5 fL (7.2-11.7); MONO # 0.9 K/uL (0.0-0.8); MONO % 10.8 % (0.0-10.0); NEUT # 4.8 K/uL (1.8-7.0); NEUT % 59.4 % (50.0-75.0); NRBC % 0.1 % (0.0-2.0); RBC 2.77 Mil/uL (3.80-5.20); RED CELL DISTRIBUTION WIDTH 17.2 % (11.5-14.5)
[2018-06-10] MEDS ORDERED: Bupivacaine 0.25% 20 ML INJ IJ ONE (09:35)
[2018-06-10] MEDS: Nystatin 100,000 Units/gm Cream(15 gm) TOP SCH ×3 (10:00→17:52)
[2018-06-10] MEDS: Lactobacillus Acidophilus 500 MU Cap PEG SCH ×2 (10:00→17:58)
[2018-06-10] MEDS: Cholestyramine 4 gm/Pkt UD PO SCH ×2 (10:00→17:58)
[2018-06-10] MEDS ORDERED: Midazolam 2 MG/2 ML VIAL ONE (10:27)
[2018-06-10] MEDS ORDERED: Iohexol 240 (50 ml) ONE (10:31)
[2018-06-10] MEDS ORDERED: Propofol 10 mg/ml Inj (20 ML) ONE (10:34)
[2018-06-10] MEDS ORDERED: HYDROmorphone 0.5 mg/0.5 ml ISec IVP PRN (10:48)
--- NOTE | 2018-06-10 11:08 | PCM.SURG1 ---
Surgeon's Initial Post Op Note - Surgeon's Notes Surgeon: Mehdi Peraza MD Client Insights Consultant: NONE Type of Anesthesia: IV Sedation Pre-Operative Diagnosis: Bowel necrosis Operative Findings: Srivastava in stomach confirmed with contrast injection. Post-Operative Diagnosis: Bowel necrosis Operation Performed: Placement of a 24 fr gastrostomy tube. Specimen/Specimens Removed: none Estimated Blood Loss: EBL {In ML}: 1 Blood Products Given: N/A Drains Used: No Drains Post-Op Condition: Fair Date of Surgery/Procedure: 06/10/18 Time of Surgery/Procedure: 10:40
[2018-06-10] MEDS: Pantoprazole 40 mg Susp UD PO SCH (13:50)
--- NOTE | 2018-06-10 14:32 | RAD ---
Date of service: 06/10/2018 PROCEDURE: Intraoperative Fluoroscopy. HISTORY: BOWEL NECROSIS FINDINGS: Fluoroscopic assistance was provided for gastrostomy tube placement. Please refer to the operative report from JAMIL Fonseca.
--- NOTE | 2018-06-10 15:09 | CP.PCM.PN ---
<Maggie Dailey - Last Filed: 06/10/18 15:10> Subjective - Date & Time of Evaluation Date of Evaluation: 06/10/18 Time of Evaluation: 07:00 - Subjective Subjective: GENERAL SURGERY PROGRESS NOTE FOR DR. TIAN Patient seen and examined at bedside. Wound vac in place on suction. Wound leaking small amount from superior portion without a vac on. She denies nausea or vomiting. Twice had diarrhea overnight. Going for IR procedure today for larger G tube. Objective - Vital Signs/Intake and Output Vital Signs (last 24 hours): Temp Pulse Resp BP Pulse Ox 98.1 F 95 H 18 115/79 99 06/10/18 11:40 06/10/18 11:40 06/10/18 11:40 06/10/18 11:40 06/10/18 11:40 Intake and Output: 06/10/18 06/10/18 06:59 18:59 Intake Total 1812.5 250 Output Total 904 Balance 908.5 250 - Medications Medications: Current Medications Acetaminophen (Tylenol 650mg/20.3ml Solution Ud) 975 mg GT Q8 [facility] Last Admin: 06/10/18 13:50 Dose: Not Given Cholestyramine Resin (Questran) 4 gm PO BID [facility] Last Admin: 06/10/18 10:00 Dose: Not Given Dextrose (Dextrose 50% Inj) 0 ml IV STAT PRN; Protocol PRN Reason: Hypoglycemia Protocol Last Admin: 05/16/18 23:40 Dose: 50 ml Dextrose (Glutose 15) 0 gm PO ONCE PRN; Protocol PRN Reason: Hypoglycemia Protocol Diphenhydramine HCl (Benadryl) 25 mg IVP HS PRN PRN Reason: Insomnia Last Admin: 06/09/18 20:54 Dose: 25 mg Enoxaparin Sodium (Lovenox) 40 mg SC DAILY [facility] Last Admin: 06/09/18 10:31 Dose: 40 mg Ergocalciferol (Drisdol 50,000 Intl Units Cap) 1 cap PO Q7D [facility] Stop: 07/20/18 10:31 Last Admin: 06/08/18 10:55 Dose: 1 cap Escitalopram Oxalate (Lexapro) 10 mg GT DAILY [facility] Glucagon (Glucagen Diagnostic Kit) 0 mg IM STAT PRN; Protocol PRN Reason: Hypoglycemia Protocol Hydrocortisone (Cortizone 1% Cream) 0 gm TOP TID PRN PRN Reason: Rash Hydromorphone HCl (Dilaudid) 1.5 mg IVP Q3 PRN PRN Reason: Pain, SEVERE (8-10) Last Admin: 06/10/18 12:43 Dose: 1.5 mg Metronidazole (Flagyl) 500 mg in 100 mls @ 100 mls/hr IVPB Q8H [facility] PRN Reason: Protocol Last Admin: 06/10/18 11:50 Dose: 100 mls/hr Dextrose/Sodium Chloride (Dextrose 5%/0.45% Ns 1000 Ml) 1,000 mls @ 75 mls/hr IV .[id number] [facility] Last Admin: 06/10/18 14:03 Dose: 75 mls/hr Insulin Human Regular (Novolin R) 0 unit SC Q6 [facility] PRN Reason: Protocol Last Admin: 06/10/18 11:51 Dose: Not Given Ipratropium [place] (Atrovent) 0.5 mg IH RQ6 [facility] Last Admin: 06/10/18 13:55 Dose: 0.5 mg Lactobacillus Acidophilus (Bacid Acidophilus) 1 cap PEG BID [facility] Last Admin: 06/10/18 10:00 Dose: Not Given Loperamide HCl (Imodium) 1 mg PO Q2H PRN PRN Reason: Diarrhea Last Admin: 06/09/18 10:33 Dose: 1 mg Lorazepam (Ativan) 1 mg IVP BID [facility] Last Admin: 06/10/18 11:37 Dose: 1 mg Metoprolol Tartrate (Lopressor) 5 mg IVP Q6H [facility] Last Admin: 06/10/18 10:00 Dose: Not Given Nicotine (Nicoderm Cq) 1 patch TD DAILY [facility] Last Admin: 06/10/18 11:59 Dose: 1 patch Nystatin (Mycostatin Cream) 0 ea TOP TID [facility] Last Admin: 06/10/18 14:32 Dose: Not Given Ondansetron HCl (Zofran Inj) 4 mg IVP Q6H PRN PRN Reason: Nausea/Vomiting Last Admin: 06/10/18 06:28 Dose: 4 mg Pantoprazole Sodium (Protonix Susp) 40 mg PO DAILY [facility] Last Admin: 06/10/18 13:50 Dose: Not Given Saliva Substitute (Mouth Kote 236 Ml) 0 ml MM Q6 PRN PRN Reason: Dry mouth Vitamin A (Vitamin A & D Oint Ud Foilpak) 1 ea TOP Q8 PRN PRN Reason: dry lips Last Admin: 05/20/18 11:10 Dose: 1 ea - Labs Labs: 06/10/18 07:05 06/10/18 07:05 PT 14.3 SECONDS (9.7-12.2) H 06/10/18 07:05 INR 1.3 06/10/18 07:05 APTT 33 SECONDS (21-34) 05/25/18 06:16 - Constitutional Appears: Non-toxic, No Acute Distress - Head Exam Head Exam: ATRAUMATIC, NORMAL INSPECTION - Eye Exam Eye Exam: EOMI, Normal appearance - Respiratory Exam Respiratory Exam: NORMAL BREATHING PATTERN. absent: Respiratory Distress - Cardiovascular Exam Cardiovascular Exam: Tachycardia, +S1, +S2 - GI/Abdominal Exam GI & Abdominal Exam: Soft. absent: Distended, Firm, Guarding, Rigid, Tenderness , Rebound Additional comments: Wound vac in place on suction G tube in place - Neurological Exam Neurological Exam: Alert, Awake, Oriented x3 - Psychiatric Exam Psychiatric exam: Normal Affect, Normal Mood - Skin Skin Exam: Dry, Warm Assessment and Plan - Assessment and Plan (Free Text) Assessment: 38yo F with PMHx of [id number] gastric bypass in 2014, presented with bowel ischemia secondary to internal hernia. POD#27 s/p Exploratory laparotomy, Reduction of internal hernia, DANNI, Drainage of abdominal collections, temporary abdominal closure, and EGD. POD#23 s/p Re-exploration, resection of ileum and Yenni limb including previous gastrojejunostomy, reversal of bypass, primary anastomosis of ileum-ileum, ileum -ileum, and ileum-jejunum, Gastrostomy tube in bypassed stomach, EGD Current drainage from mildine incision possibly d/t leak of tube feed contents from around gastrostomy tube vs fistula--wound vac in place Plan: - Continue to monitor labs Q2days - Continue wound vac to suction --will replace today with larger sponge to cover entire length of wound given that superior portion is leaking - Continue tube feeds for nutrition - Continue NGT to intermittent suction - Continue antibiotics, PRN pain medications - Encourage ambulation with PT - Dr. Harley discussed timing for re-operation with Dr. Mccray, bariatric surgeon--no nondenominational of continuity operation until 6 weeks after most recent surgery--patient needs to fully medically/nutritionally optimized prior to OR - IR placed a 24 fr gastrostomy tube today - Discussed plan with Dr. Cricket Dailey PGY-4 <Gómez Harley - Last Filed: 06/19/18 09:42> Objective - Vital Signs/Intake and Output Vital Signs (last 24 hours): Temp Pulse Resp BP Pulse Ox 98.8 F 99 H 20 99/66 L 97 06/19/18 07:00 06/19/18 07:00 06/19/18 07:00 06/19/18 07:00 06/19/18 07:00 Intake and Output: 06/19/18 06/19/18 06:59 18:59 Intake Total 1000 Output Total 615 Balance 385 - Medications Medications: Current Medications Acetaminophen (Tylenol 650mg/20.3ml Solution Ud) 975 mg GT Q8 PRN PRN Reason: Pain, Mild (1-3) Last Admin: 06/16/18 09:25 Dose: 975 mg Cholestyramine Resin (Questran) 4 gm PO BID [facility] Last Admin: 06/19/18 09:07 Dose: 4 gm Dextrose (Dextrose 50% Inj) 0 ml IV STAT PRN; Protocol PRN Reason: Hypoglycemia Protocol Last Admin: 05/16/18 23:40 Dose: 50 ml Dextrose (Glutose 15) 0 gm PO ONCE PRN; Protocol PRN Reason: Hypoglycemia Protocol Diphenhydramine HCl (Benadryl) 25 mg IVP QPM PRN PRN Reason: Insomnia Last Admin: 06/18/18 19:30 Dose: 25 mg Enoxaparin Sodium (Lovenox) 40 mg SC DAILY [facility] Last Admin: 06/19/18 09:08 Dose: 40 mg Ergocalciferol (Drisdol 50,000 Intl Units Cap) 1 cap PO Q7D [facility] Stop: 07/20/18 10:31 Last Admin: 06/15/18 10:40 Dose: 1 cap Escitalopram Oxalate (Lexapro) 10 mg GT DAILY [facility] Last Admin: 06/19/18 09:07 Dose: 10 mg Glucagon (Glucagen Diagnostic Kit) 0 mg IM STAT PRN; Protocol PRN Reason: Hypoglycemia Protocol Hydrocortisone (Cortizone 1% Cream) 0 gm TOP TID PRN PRN Reason: Rash Hydromorphone HCl (Dilaudid) 1.5 mg IVP Q3 PRN PRN Reason: Pain, SEVERE (8-10) Last Admin: 06/19/18 07:50 Dose: 1.5 mg Vancomycin HCl 1.5 gm/ Sodium (Chloride) 500 mls @ 333.333 mls/hr IVPB Q12H [facility] PRN Reason: Protocol Last Admin: 06/19/18 00:18 Dose: 333.333 mls/hr Insulin Human Regular (Novolin R) 0 unit SC Q6 [facility] PRN Reason: Protocol Last Admin: 06/19/18 06:20 Dose: Not Given Ipratropium [place] (Atrovent) 0.5 mg IH RQ6 [facility] Last Admin: 06/19/18 08:35 Dose: 0.5 mg Lactobacillus Acidophilus (Bacid Acidophilus) 1 cap PEG BID [facility] Last Admin: 06/19/18 09:07 Dose: 1 cap Loperamide HCl (Imodium) 1 mg PO Q2H PRN PRN Reason: Diarrhea Last Admin: 06/18/18 10:03 Dose: 1 mg Lorazepam (Ativan) 1 mg IVP BID [facility] Last Admin: 06/19/18 09:08 Dose: 1 mg Metoprolol Tartrate (Lopressor) 5 mg IVP Q6H [facility] Last Admin: 06/19/18 09:26 Dose: Not Given Nicotine (Nicoderm Cq) 1 patch TD DAILY [facility] Last Admin: 06/19/18 09:07 Dose: 1 patch Ondansetron HCl (Zofran Inj) 4 mg IVP Q6H PRN PRN Reason: Nausea/Vomiting Last Admin: 06/18/18 11:50 Dose: 4 mg Pantoprazole Sodium (Protonix Susp) 40 mg PO Q24H [facility] Last Admin: 06/19/18 09:08 Dose: 40 mg Saliva Substitute (Mouth Kote 236 Ml) 0 ml MM Q6 PRN PRN Reason: Dry mouth Vitamin A (Vitamin A & D Oint Ud Foilpak) 1 ea TOP Q8 PRN PRN Reason: dry lips Last Admin: 05/20/18 11:10 Dose: 1 ea Vitamin E (Vitamin E 400 Units Cap) 400 intlu GT DAILY [facility] Last Admin: 06/19/18 09:07 Dose: 400 intlu - Labs Labs: 06/19/18 07:06 09/09/18 07:06 PT 14.3 SECONDS (9.7-12.2) H 06/10/18 07:05 INR 1.3 06/10/18 07:05 APTT 33 SECONDS (21-34) 05/25/18 06:16 Attending/Attestation - Attestation I have fully participated in the care of the patient.: Yes I have reviewed all pertinent clinical information, including history, physical exam and plan: Yes Notes (Text): Pt is stable c.w wound vac and tube feeds IV antibiotics repeat Labs in am Plan d.w pt in detail
[2018-06-10] MEDS ORDERED: Magnesium Sulfate 1 gm in D5W 1 GM/100 ML BAG IVPB ONE (15:40)
[2018-06-10] MEDS: DiphenhydrAMINE 50 mg/ml Inj IVP PRN (21:06)
[2018-06-11] MEDS: (Novolin R) Insulin Human Regular 100 units/ml vial SC SCH ×5 (00:52→23:44)
[2018-06-11] MEDS: Ipratropium 0.02% Inhal Soln (0.5 mg/2.5 ml) UD IH SCH ×4 (01:24→19:38)
[2018-06-11] MEDS: Metoprolol 1 mg/ml Inj IVP SCH ×4 (04:09→23:15)
[2018-06-11] MEDS: metroNIDAZOLE IV 500 mg/100 ml 500 MG/100 ML BAG IVPB SCH ×3 (04:11→19:58)
[2018-06-11] MEDS: Acetaminophen 650mg/20.3ml solution UD GT SCH ×5 (06:03→21:44)
[2018-06-11 07:59] LABS: BASO % 0.5 % (0.0-2.0); EOS # 0.3 K/uL (0.0-0.7); EOS % 3.1 % (0.0-4.0); HEMOGLOBIN 9.5 g/dL (11.0-16.0); LYMPH # 1.9 K/uL (1.0-4.3); LYMPH % 23.1 % (20.0-40.0); MEAN CELL VOLUME 85.4 fL (81.0-99.0); MEAN PLATELET VOLUME 7.5 fL (7.2-11.7); MONO # 0.8 K/uL (0.0-0.8); MONO % 10.1 % (0.0-10.0); NEUT # 5.1 K/uL (1.8-7.0); NEUT % 63.2 % (50.0-75.0); NRBC % 0.1 % (0.0-2.0); RBC 3.26 Mil/uL (3.80-5.20); RED CELL DISTRIBUTION WIDTH 17.2 % (11.5-14.5); WHITE BLOOD COUNT 8.1 K/uL (4.8-10.8)
[2018-06-11 08:22] LABS: ALB/GLOB RATIO 0.9 (1.0-2.1); ALBUMIN 2.8 g/dL (3.5-5.0); ALT/SGPT 22 U/L (9-52); AST/SGOT 17 U/L (14-36); BLOOD UREA NITROGEN 5 mg/dL (7-17); CALCIUM 8.1 mg/dl (8.6-10.4); GFR NON-AFRICAN AMERICAN > 60
--- NOTE | 2018-06-11 09:28 | CP.PCM.PN ---
<MargaritoNina - Last Filed: 06/11/18 21:24> Subjective - Date & Time of Evaluation Date of Evaluation: 06/11/18 Time of Evaluation: 08:00 - Subjective Subjective: Medicine Progress Note: Patient was seen and examined at bedside in the AM. No acute events overnight. Patient states her pain comes and goes. She states she had 2 episodes of diarrhea yesterday. She denies current symptoms of vomiting, constipation, chest pain, shortness of breath, dizziness, or numbness. Objective - Vital Signs/Intake and Output Vital Signs (last 24 hours): Temp Pulse Resp BP Pulse Ox 98.5 F 99 H 20 105/71 95 06/11/18 07:10 06/11/18 07:10 06/11/18 07:10 06/11/18 07:10 06/11/18 07:10 Intake and Output: 06/11/18 06/11/18 06:59 18:59 Intake Total 360 Output Total 1700 Balance -1340 - Medications Medications: Current Medications Acetaminophen (Tylenol 650mg/20.3ml Solution Ud) 975 mg GT Q8 [facility] Last Admin: 06/11/18 06:03 Dose: 975 mg Cholestyramine Resin (Questran) 4 gm PO BID [facility] Last Admin: 06/10/18 17:58 Dose: 4 gm Dextrose (Dextrose 50% Inj) 0 ml IV STAT PRN; Protocol PRN Reason: Hypoglycemia Protocol Last Admin: 05/16/18 23:40 Dose: 50 ml Dextrose (Glutose 15) 0 gm PO ONCE PRN; Protocol PRN Reason: Hypoglycemia Protocol Diphenhydramine HCl (Benadryl) 25 mg IVP HS PRN PRN Reason: Insomnia Last Admin: 06/10/18 21:06 Dose: 25 mg Enoxaparin Sodium (Lovenox) 40 mg SC DAILY [facility] Ergocalciferol (Drisdol 50,000 Intl Units Cap) 1 cap PO Q7D [facility] Stop: 07/20/18 10:31 Last Admin: 06/08/18 10:55 Dose: 1 cap Escitalopram Oxalate (Lexapro) 10 mg GT DAILY [facility] Glucagon (Glucagen Diagnostic Kit) 0 mg IM STAT PRN; Protocol PRN Reason: Hypoglycemia Protocol Hydrocortisone (Cortizone 1% Cream) 0 gm TOP TID PRN PRN Reason: Rash Hydromorphone HCl (Dilaudid) 1.5 mg IVP Q3 PRN PRN Reason: Pain, SEVERE (8-10) Last Admin: 06/11/18 06:58 Dose: 1.5 mg Metronidazole (Flagyl) 500 mg in 100 mls @ 100 mls/hr IVPB Q8H [facility] PRN Reason: Protocol Last Admin: 06/11/18 04:11 Dose: 100 mls/hr Ciprofloxacin (Cipro 400mg/200ml Dsw) 400 mg in 200 mls @ 133 mls/hr IVPB Q12H [facility] PRN Reason: Protocol Insulin Human Regular (Novolin R) 0 unit SC Q6 [facility] PRN Reason: Protocol Last Admin: 06/11/18 06:05 Dose: Not Given Ipratropium Sulphur (Atrovent) 0.5 mg IH RQ6 [facility] Last Admin: 06/11/18 08:52 Dose: 0.5 mg Lactobacillus Acidophilus (Bacid Acidophilus) 1 cap PEG BID [facility] Last Admin: 06/10/18 17:58 Dose: 1 cap Loperamide HCl (Imodium) 1 mg PO Q2H PRN PRN Reason: Diarrhea Last Admin: 06/09/18 10:33 Dose: 1 mg Lorazepam (Ativan) 1 mg IVP BID [facility] Last Admin: 06/10/18 17:58 Dose: 1 mg Metoprolol Tartrate (Lopressor) 5 mg IVP Q6H [facility] Last Admin: 06/11/18 04:09 Dose: 5 mg Nicotine (Nicoderm Cq) 1 patch TD DAILY [facility] Last Admin: 06/10/18 11:59 Dose: 1 patch Nystatin (Mycostatin Cream) 0 ea TOP TID [facility] Last Admin: 06/10/18 17:52 Dose: Not Given Ondansetron HCl (Zofran Inj) 4 mg IVP Q6H PRN PRN Reason: Nausea/Vomiting Last Admin: 06/10/18 06:28 Dose: 4 mg Pantoprazole Sodium (Protonix Susp) 40 mg PO DAILY [facility] Last Admin: 06/10/18 13:50 Dose: Not Given Saliva Substitute (Mouth Kote 236 Ml) 0 ml MM Q6 PRN PRN Reason: Dry mouth Vitamin A (Vitamin A & D Oint Ud Foilpak) 1 ea TOP Q8 PRN PRN Reason: dry lips Last Admin: 05/20/18 11:10 Dose: 1 ea - Labs Labs: 06/11/18 07:33 06/11/18 07:33 PT 14.3 SECONDS (9.7-12.2) H 06/10/18 07:05 INR 1.3 06/10/18 07:05 APTT 33 SECONDS (21-34) 05/25/18 06:16 - Constitutional Appears: No Acute Distress, Chronically Ill - Head Exam Head Exam: ATRAUMATIC, NORMAL INSPECTION - Eye Exam Eye Exam: EOMI, Normal appearance - ENT Exam ENT Exam: Mucous Membranes Moist - Respiratory Exam Respiratory Exam: Clear to Ausculation Bilateral, NORMAL BREATHING PATTERN - Cardiovascular Exam Cardiovascular Exam: REGULAR RHYTHM, +S1, +S2 - GI/Abdominal Exam GI & Abdominal Exam: Soft, Tenderness Additional comments: Wound vac in place at inferior edge of surgical incision; No surrounding erythema, edema, or tenderness. gastrostomy tube in place c/d/i - Extremities Exam Extremities Exam: Normal Inspection - Neurological Exam Neurological Exam: Alert, Awake, Oriented x3 - Psychiatric Exam Psychiatric exam: Normal Affect - Skin Skin Exam: Normal Color Assessment and Plan - Assessment and Plan (Free Text) Assessment: Ischemic bowel disease secondary to to internal hernias producing bowel obstruction Current Management: - Current drains include: NGT (have on continuos suction), gastrostomy tube * wound vac from 06/06, replaced 06/09 & 06/10 due to leakage * Pt had IR procedure to replace G tube (06/10/18), [address], tolerating feeds - Dr. Harley (surgery) on the case * wound vac to continuous suction * Following Bariatric surgeon (Dr. Mccray) recs---Will plan for exchange of ojeda G-tube for a larger size Gtube preferably at least 24Fr in size with IR. current recs no samaritan of continuity operation until 5 weeks after 05/16 surgery * Current drainage from mildine incision possibly d/t leak of tube feed contents from around gastrostomy tube vs fistula--wound vac in place Cultures: * Peritoneal Fluid (05/14/18): Pseudomonas Aeruginosa sensitive to Meropenem * Wound Culture (05/23/18): Yudith albicans * Blood culture (05/15/18, 05/22/18): no growth * Urine culture (05/22/18): no growth * Incision site 05/31: Enterococcus faecalis, Acinetobacter baumannii Antibiotics - Continue Cipro 400 mg IV q12hrs (started 06/02) - Continue Flagyl 500mg IVPB Q8H (active since 05/15/18) - Continue Nystatin cream TID for G-tube site (Yudith) - Discontinued Meropenem 1 gm IVPB Q8H (active since 05/15/18-05/27/18) Measure vitamin levels and replace as needed - Vit D <12.8- vit D 50,000 units q1wk x8 wks - B12 707, wnl - Folate 12.6, wnl - Vit A 42, wnl - Alpha Vit E 5.6, wnl Medications: - Continue Tylenol 975 mg liq q8hrs - Continue Dilaudid 1.5 mg IV q3hrs PRN - Continue Zofran 4mg IV q6hrs PRN - PT consulted- working with patient, current rec TCU following discharge Tachycardia, persistent (110s-130s)- possibly etiologies include pain, infection , anxiety - She is being treated for Left G Tube fluid infection. - Continue ativan PRN. - Continue Dilaudid on board to be used PRN. - Continue Metoprolol tartrate 5 mg IV q6hrs with holding parameters (SBP <100, HR <60) Diarrhea, acute, improving- suspect secondary to PO intake by pt - C. Diff (05/22, 05/24, 05/28): negative - Stool O&P (05/25/18): negative - Stool leukocytes (05/25/18): negative - per ID continue flagyl due to leak around wound vac Anxiety - [employer] Consultant consulted- pt initially refused but then accepted - Psychiatry consulted (Dr. Reyez)- managing Ativan - Continue Ativan 1 mg IV BID - Continue Lexapro 10 mg PO daily (started 05/31) Anemia, acute, stable, pt denies blood in stool - Patient received a total of 2 PRBC (on 05/16) and 4 FFP (on 05/15 to 05/16) - Iron 16, TIBC 205, % sat 4.7, ferritin 75.3 - Monitor CBC Q2D Thombocytosis, improving (504)- suspect reactive to pain, surgery - Resolved - Monitor CBC Q2D Diabetes Mellitus, Type 2, controlled - From prior note: Admittedly non-compliant, has not taken Januvia for one year - Accuchecks q6hrs - Hypoglycemic protocol - ISS regular - HbA1c 5.8 - History of gastric bypass surgery Hypercholesterolemia- untreated - LDL 38, HDL 14, Chol 104, TG 226 - History of gastric bypass surgery History of Hypertension, controlled- since gastric bypass has not taken meds - Metoprolol 5 mg IV q6hrs History of Obesity, resolved - s/p gastric bypass surgery in 2013 History of Asthma - Chronic - Atrovent q6hrs Nicotine use disorder - Chronic - From prior note: 1ppd x 20 yrs, 1/2 ppd x 3 yrs - Continue Nicoderm 1 patch TD QD Hypokalemia - Resolved - 3.6 WNL on 06/10 - 3.5 on 06/09, replenished w/ 20 meq KCl IVP, f/u w/ Q2D labs Hypomagnesemia - Resolved - 1.6 on 06/10 repleanished w/ 1gm in AM, will f/u w/ Q2D labs - 1.5 on 06/09, replenished w/ 1gm in AM, will f/u w/ Q2D labs Leukocytosis, trending downwards - likely secondary to to ischemic bowel secondary to small bowel obstruction and surgeries - Resolved - Cultures: Peritoneal Fluid (05/14/18): Pseudomonas Aeruginosa sensitive to Meropenem Wound Culture (05/23/18): Yudith albicans Blood culture (05/15/18, 05/22/18): no growth Urine culture (05/22/18): no growth - Wound Cx from incision site 05/31: Enterococcus faecalis, Acinetobacter baumannii, on ciprofloxacin 400 mg (started 06/02) - Monitor CBC Q2D Prophylaxis - Hydrocortisone 1% Cream topical TID for Right Upper Inner Arm macular rash- improved - Vitamin A&D topical q8hrs PRN for dry lips - Saliva substitute q6hrs PRN for dry mouth - IVF: not indicated - VTE ppx: Lovenox 40 mg SC daily, SCDs; encourage ambulation - GI ppx: Protonix 40 mg IV BID, Florastor BID - Code status: full code Case discussed with Dr. Burke Pimentel PGY-2 <Doretha Turk V - Last Filed: 06/12/18 08:54> Objective - Vital Signs/Intake and Output Vital Signs (last 24 hours): Temp Pulse Resp BP Pulse Ox 99.6 F 100 H 18 113/79 96 06/12/18 07:00 06/12/18 07:59 06/12/18 07:00 06/12/18 07:00 06/12/18 07:00 Intake and Output: 06/12/18 06/12/18 06:59 18:59 Intake Total 750 Output Total 800 Balance -50 - Medications Medications: Current Medications Acetaminophen (Tylenol 650mg/20.3ml Solution Ud) 975 mg GT Q8 [facility] Last Admin: 06/12/18 05:43 Dose: 975 mg Cholestyramine Resin (Questran) 4 gm PO BID [facility] Last Admin: 06/11/18 17:48 Dose: 4 gm Dextrose (Dextrose 50% Inj) 0 ml IV STAT PRN; Protocol PRN Reason: Hypoglycemia Protocol Last Admin: 05/16/18 23:40 Dose: 50 ml Dextrose (Glutose 15) 0 gm PO ONCE PRN; Protocol PRN Reason: Hypoglycemia Protocol Diphenhydramine HCl (Benadryl) 25 mg IVP HS PRN PRN Reason: Insomnia Last Admin: 06/11/18 21:32 Dose: 25 mg Enoxaparin Sodium (Lovenox) 40 mg SC DAILY [facility] Last Admin: 06/11/18 10:43 Dose: 40 mg Ergocalciferol (Drisdol 50,000 Intl Units Cap) 1 cap PO Q7D [facility] Stop: 07/20/18 10:31 Last Admin: 06/08/18 10:55 Dose: 1 cap Escitalopram Oxalate (Lexapro) 10 mg GT DAILY [facility] Last Admin: 06/11/18 10:44 Dose: 10 mg Glucagon (Glucagen Diagnostic Kit) 0 mg IM STAT PRN; Protocol PRN Reason: Hypoglycemia Protocol Hydrocortisone (Cortizone 1% Cream) 0 gm TOP TID PRN PRN Reason: Rash Hydromorphone HCl (Dilaudid) 1.5 mg IVP Q3 PRN PRN Reason: Pain, SEVERE (8-10) Last Admin: 06/12/18 07:02 Dose: 1.5 mg Metronidazole (Flagyl) 500 mg in 100 mls @ 100 mls/hr IVPB Q8H [facility] PRN Reason: Protocol Last Admin: 06/12/18 03:28 Dose: 100 mls/hr Ciprofloxacin (Cipro 400mg/200ml Dsw) 400 mg in 200 mls @ 133 mls/hr IVPB Q12H [facility] PRN Reason: Protocol Last Admin: 06/12/18 01:30 Dose: 133 mls/hr Insulin Human Regular (Novolin R) 0 unit SC Q6 [facility] PRN Reason: Protocol Last Admin: 06/12/18 06:25 Dose: Not Given Ipratropium Sulphur (Atrovent) 0.5 mg IH RQ6 [facility] Last Admin: 06/12/18 01:22 Dose: Not Given Lactobacillus Acidophilus (Bacid Acidophilus) 1 cap PEG BID [facility] Last Admin: 06/11/18 17:47 Dose: 1 cap Loperamide HCl (Imodium) 1 mg PO Q2H PRN PRN Reason: Diarrhea Last Admin: 06/11/18 10:41 Dose: 1 mg Lorazepam (Ativan) 1 mg IVP BID [facility] Last Admin: 06/11/18 17:47 Dose: 1 mg Metoprolol Tartrate (Lopressor) 5 mg IVP Q6H [facility] Last Admin: 06/12/18 03:28 Dose: 5 mg Nicotine (Nicoderm Cq) 1 patch TD DAILY [facility] Last Admin: 06/11/18 10:41 Dose: 1 patch Nystatin (Mycostatin Cream) 0 ea TOP TID [facility] Last Admin: 06/11/18 21:46 Dose: Not Given Ondansetron HCl (Zofran Inj) 4 mg IVP Q6H PRN PRN Reason: Nausea/Vomiting Last Admin: 06/12/18 07:01 Dose: 4 mg Pantoprazole Sodium (Protonix Susp) 40 mg PO DAILY [facility] Last Admin: 06/11/18 10:43 Dose: 40 mg Saliva Substitute (Mouth Kote 236 Ml) 0 ml MM Q6 PRN PRN Reason: Dry mouth Vitamin A (Vitamin A & D Oint Ud Foilpak) 1 ea TOP Q8 PRN PRN Reason: dry lips Last Admin: 05/20/18 11:10 Dose: 1 ea - Labs Labs: 06/11/18 07:33 06/11/18 07:33 PT 14.3 SECONDS (9.7-12.2) H 06/10/18 07:05 INR 1.3 06/10/18 07:05 APTT 33 SECONDS (21-34) 05/25/18 06:16 Assessment and Plan (1) Ischemic bowel disease Status: Acute (2) Obesity (BMI 30-39.9) Status: Acute (3) Small bowel obstruction Status: Acute (4) Prophylactic measure Status: Acute Attending/Attestation - Attestation I have personally seen and examined this patient.: Yes I have fully participated in the care of the patient.: Yes I have reviewed all pertinent clinical information, including history, physical exam and plan: Yes Notes (Text): This is late computer entry for 06/11/18. Patient seen, examined and case discussed with day-time resident. Patient seen this afternoon. Patient reports diarrhea has improved, reports only 2 episodes of diarrhea. Patient appears pain controlled. Patient appears very comfortable. Patient does not have any leaking over the surgery site on the abdomen. Discussed with patient's overall health with her and her permission with her mother on the phone. Patient is aware she will eventually need to be taper off her narcotic medication (Used to be on Oycodone 30mg POq6 and Xanax 1mg POq8H) and that it is a balancing act given her body chemistry is used to level of narcotic medication versus post operative pain. Assessment/Plan (1) Ischemic bowel disease Assessment & Plan: * Dr. Harley (surgery) on the case-->help appreciated * Preoperative/intraoperative/postoperative management per surgery * Following Bariatric surgeon (Dr. Mccray) recommendations--current recommending no samaritan of continuity operation until 5 weeks after most recent surgery--patient needs to fully medically optimized prior to OR * Continue wound vac to suction * Continue tube feeds for nutrition * Continue NGT to intermittent suction * Continue antibiotics, PRN pain medications * Dr. Alvarado (GI) on the case-->help appreciated * Dr. Rivera (ID) on the case-->help appreciated * Brief summary of: * Patient has had 2 bloody bowel movements started 05/14/18. Patient's rectal: blood. She had reported abdominal pain has worsening since night of admission. Patient required emergent surgical intervention on 05/14/18 and transferred to ICU. Per operative note (05/14/18): Diagnostic laparoscopy, Exploratory laparotomy , Reduction of internal hernia, Lysis of adhesions, Drainage of abdominal collections, temporary abdominal closure, EGD * Ischemia of yenni limb, internal hernia. Naveed drain stitched to distal common limb * Patient underwent surgery again on 05/16/18.Re-exploration, Small bowel resection of ileum, small bowel resection of Yenni limb with gastrojejunostomy, reversal of bypass, primary anastomosis of ileum-ileum, ileum-ileum, and ileum- jejunum, Gastrostomy tube in bypassed stomach, EGD. Patient extubated 05/16/18. Patient is pending surgery intervention to restore GI motility in 5 weeks pending nutritional status. Measure vitamin levels and replace as needed * Vit D <12.8- vit D 50,000 units q1wk x8 wks * Prealbumin 18.1 * B12 707 * Folate 12.6 * F/u A, B1, B6, E-->pending * Drains included: NGT Tube in place, Ojeda in place of gastrostomy tube, left min removed 05/25/18; right min was removed 05/23/18; no ojeda; wound vac placed on * IV abx: * Flagyl 500mg IVPB Q8H (active since 05/15/18)-->Per ID to continue given diarrhea and anaerobic coverage for wound infection * Cultures: * Peritoneal Fluid : Pseudomonas Aeruginosa sensitive to Meropenem (05/15-05/27) * Wound Culture (05/23): Yudith Albican--->Diflucan since 05/22/18 until 05/30/18 * Incision site 05/31: Enterococcus faecalis, Acinetobacter baumannii---> Ciprofloxacin 400mg IVPB Q12H (active since 06/03/18) * Blood culture (05/15/18): no growth after 5 days X2 * Blood culture (05/22/18): no growth after 5 days X2 * Urine culture: no growth * PRNS: * Tylenol 975 mg liq q8hrs * Dilaudid 1.5 mg IV q3hrs PRN * Zofran 4mg IV q6hrs PRN * Ativan 1mg IV BID anxiety-->per psych * Diarrhea * Patient is Questran 4gm PO BID * Patient is on Flagyl to cover for C. Dif. C. Dif Negative X3 Status: Acute (2) Small bowel obstruction Assessment & Plan: * Secondary to hernia * Further details noted in #1 Status: Acute (3) Obesity (BMI 30-39.9) Assessment & Plan: * s/p gastric bypass surgery in 2013 * Operative note (2013): Yenni-en-Y gastric bypass surgery * Given nature of ischemic bowel affecting portioning of the gastric limb, she will need to wait at least 5 weeks to restoring GI motility when she is nutritionally optimized Status: Acute (4) Status post gastric bypass for obesity Assessment & Plan: * status post gastric bypass 2013 * Operative note (2013): Yenni-en-Y gastric bypass surgery * Patient noncomplaint with following up postoperative. Status: Acute (5) History of Asthma Assessment & Plan: * Patient not in acute exacerbation prior to OR * Atrovent Q6H (6) Diabetes Mellitus (Type 2); controlled Assessment & Plan: * From prior note: * Admittedly non-compliant - has not taken Januvia for one year * Accuchecks Q6H * Hypoglycemic protocol * HbA1c - 6.3 (03/10/17) * hgba1c: 5.8 * History of gastric bypass surgery (8) Hx of HTN (hypertension) Assessment & Plan: * Since Gastric Bypass has not taken meds (9) Hx of Hypothyroid Assessment & Plan: * From prior note: * Pt admits non-compliance (10) Hypercholesterolemia Assessment & Plan: * From prior note: * Pt not taking meds * LDL 138, HDL 67, Tchol 220, Trig 112 * History of gastric bypass surgery (11) Anxiety Assessment & Plan: * Psychiatry (Dr. 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 Assessment & Plan: * 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 and from my prior note from last hospitalization (13) Smoker Assessment & Plan: * From my prior note: 1ppd x 20 yrs, 1/2 ppd x 3 yrs * Nicoderm 1 patch TD patchy (14) Tachycardia Assessment & Plan: * Lopressor 5mg IVQ6H xavier (15) Prophylactic measure Assessment & Plan: * Bacid Acidophilus 1 cap PEG BID * Lovenox 40mg subqdaily for DVT ppx * PICC line 06/01/18 * protonix 40mg IV Qdaily * Vitamin A&D ointment 1 each top Q8H * NGT Tube * IR exchange of Ojeda to 24 greek gauge 06/10/18 * Wound vac 06/03/18 placed * Dressing changed * Feed orders: * Patient is currently on Osmolite via G Tube which has the following components. * MCT Oil (benefits in situations with malabsorption and is low residue) * 1440 calories; 70 gm protein; 914 ml free water * Should at any time the patient require TPN then we can try the following options: * 83 ml/hr: 2100 tete, 100 gm protein * 63 ml/hr: 1575 tete, 75 gm protein * 20% Intrilipid every other day with either one of the TPN rates mentioned above Status: Acute Disposition: Follow-up remain Vitamin levels for repletion. Patient has received Medicaid. Monitor diarrhea.
--- NOTE | 2018-06-11 09:52 | CP.PCM.PN ---
<Duran Jimenez - Last Filed: 06/11/18 09:55> Subjective - Date & Time of Evaluation Date of Evaluation: 06/11/18 Time of Evaluation: 07:00 - Subjective Subjective: Patient seen and examined. No acute events over night. Tolerating feeds. 50cc/ 12hrs drainage into wound vac canister. Objective - Vital Signs/Intake and Output Vital Signs (last 24 hours): Temp Pulse Resp BP Pulse Ox 98.5 F 99 H 20 105/71 95 06/11/18 07:10 06/11/18 07:10 06/11/18 07:10 06/11/18 07:10 06/11/18 07:10 Intake and Output: 06/11/18 06/11/18 06:59 18:59 Intake Total 360 Output Total 1700 Balance -1340 - Medications Medications: Current Medications Acetaminophen (Tylenol 650mg/20.3ml Solution Ud) 975 mg GT Q8 [facility] Last Admin: 06/11/18 06:03 Dose: 975 mg Cholestyramine Resin (Questran) 4 gm PO BID [facility] Last Admin: 06/10/18 17:58 Dose: 4 gm Dextrose (Dextrose 50% Inj) 0 ml IV STAT PRN; Protocol PRN Reason: Hypoglycemia Protocol Last Admin: 05/16/18 23:40 Dose: 50 ml Dextrose (Glutose 15) 0 gm PO ONCE PRN; Protocol PRN Reason: Hypoglycemia Protocol Diphenhydramine HCl (Benadryl) 25 mg IVP HS PRN PRN Reason: Insomnia Last Admin: 06/10/18 21:06 Dose: 25 mg Enoxaparin Sodium (Lovenox) 40 mg SC DAILY [facility] Ergocalciferol (Drisdol 50,000 Intl Units Cap) 1 cap PO Q7D [facility] Stop: 07/20/18 10:31 Last Admin: 06/08/18 10:55 Dose: 1 cap Escitalopram Oxalate (Lexapro) 10 mg GT DAILY [facility] Glucagon (Glucagen Diagnostic Kit) 0 mg IM STAT PRN; Protocol PRN Reason: Hypoglycemia Protocol Hydrocortisone (Cortizone 1% Cream) 0 gm TOP TID PRN PRN Reason: Rash Hydromorphone HCl (Dilaudid) 1.5 mg IVP Q3 PRN PRN Reason: Pain, SEVERE (8-10) Last Admin: 06/11/18 06:58 Dose: 1.5 mg Metronidazole (Flagyl) 500 mg in 100 mls @ 100 mls/hr IVPB Q8H [facility] PRN Reason: Protocol Last Admin: 06/11/18 04:11 Dose: 100 mls/hr Ciprofloxacin (Cipro 400mg/200ml Dsw) 400 mg in 200 mls @ 133 mls/hr IVPB Q12H [facility] PRN Reason: Protocol Potassium Chloride (Potassium Chloride 10 Meq/100 Ml) 10 meq in 100 mls @ 100 mls/hr IVPB ONCE ONE Stop: 06/11/18 10:59 Insulin Human Regular (Novolin R) 0 unit SC Q6 [facility] PRN Reason: Protocol Last Admin: 06/11/18 06:05 Dose: Not Given Ipratropium [place] (Atrovent) 0.5 mg IH RQ6 [facility] Last Admin: 06/11/18 08:52 Dose: 0.5 mg Lactobacillus Acidophilus (Bacid Acidophilus) 1 cap PEG BID [facility] Last Admin: 06/10/18 17:58 Dose: 1 cap Loperamide HCl (Imodium) 1 mg PO Q2H PRN PRN Reason: Diarrhea Last Admin: 06/09/18 10:33 Dose: 1 mg Lorazepam (Ativan) 1 mg IVP BID [facility] Last Admin: 06/10/18 17:58 Dose: 1 mg Metoprolol Tartrate (Lopressor) 5 mg IVP Q6H [facility] Last Admin: 06/11/18 04:09 Dose: 5 mg Nicotine (Nicoderm Cq) 1 patch TD DAILY [facility] Last Admin: 06/10/18 11:59 Dose: 1 patch Nystatin (Mycostatin Cream) 0 ea TOP TID [facility] Last Admin: 06/10/18 17:52 Dose: Not Given Ondansetron HCl (Zofran Inj) 4 mg IVP Q6H PRN PRN Reason: Nausea/Vomiting Last Admin: 06/10/18 06:28 Dose: 4 mg Pantoprazole Sodium (Protonix Susp) 40 mg PO DAILY [facility] Last Admin: 06/10/18 13:50 Dose: Not Given Saliva Substitute (Mouth Kote 236 Ml) 0 ml MM Q6 PRN PRN Reason: Dry mouth Vitamin A (Vitamin A & D Oint Ud Foilpak) 1 ea TOP Q8 PRN PRN Reason: dry lips Last Admin: 05/20/18 11:10 Dose: 1 ea - Labs Labs: 06/11/18 07:33 06/11/18 07:33 PT 14.3 SECONDS (9.7-12.2) H 06/10/18 07:05 INR 1.3 06/10/18 07:05 APTT 33 SECONDS (21-34) 05/25/18 06:16 - Constitutional Appears: No Acute Distress - Head Exam Head Exam: NORMOCEPHALIC - Eye Exam Eye Exam: EOMI, Normal appearance - ENT Exam ENT Exam: Mucous Membranes Moist - Respiratory Exam Respiratory Exam: NORMAL BREATHING PATTERN - Cardiovascular Exam Cardiovascular Exam: +S1, +S2 - GI/Abdominal Exam GI & Abdominal Exam: Soft. absent: Distended, Firm, Guarding, Rigid, Tenderness - Neurological Exam Neurological Exam: Alert, Oriented x3 - Skin Skin Exam: Dry, Intact, Warm Assessment and Plan - Assessment and Plan (Free Text) Assessment: 38yo F with PMHx of [id number] gastric bypass in 2013, presented with bowel ischemia secondary to internal hernia. POD#28 s/p Exploratory laparotomy, Reduction of internal hernia, DANNI, Drainage of abdominal collections, temporary abdominal closure, and EGD. POD#24 s/p Re-exploration, resection of ileum and Yenni limb including previous gastrojejunostomy, reversal of bypass, primary anastomosis of ileum-ileum, ileum -ileum, and ileum-jejunum, Gastrostomy tube in bypassed stomach, EGD Current drainage from mildine incision possibly d/t leak of tube feed contents from around gastrostomy tube vs fistula--wound vac in place Plan: - Continue to monitor labs Q2days - Continue wound vac to suction --will replace today with larger sponge to cover entire length of wound given that superior portion is leaking - Continue tube feeds for nutrition - Continue NGT to intermittent suction - Continue antibiotics, PRN pain medications - Encourage ambulation with PT - Dr. Harley discussed timing for re-operation with Dr. Mccray, bariatric surgeon--no zoroastrian of continuity operation until 6 weeks after most recent surgery--patient needs to fully medically/nutritionally optimized prior to OR - IR placed a 24 fr gastrostomy tube-- tolerating feeds - Discussed plan with Dr. Cricket Jimenez PGY3 <Gómez Harley - Last Filed: 06/19/18 09:46> Objective - Vital Signs/Intake and Output Vital Signs (last 24 hours): Temp Pulse Resp BP Pulse Ox 98.8 F 99 H 20 99/66 L 97 06/19/18 07:00 06/19/18 07:00 06/19/18 07:00 06/19/18 07:00 06/19/18 07:00 Intake and Output: 06/19/18 06/19/18 06:59 18:59 Intake Total 1000 Output Total 615 Balance 385 - Medications Medications: Current Medications Acetaminophen (Tylenol 650mg/20.3ml Solution Ud) 975 mg GT Q8 PRN PRN Reason: Pain, Mild (1-3) Last Admin: 06/16/18 09:25 Dose: 975 mg Cholestyramine Resin (Questran) 4 gm PO BID [facility] Last Admin: 06/19/18 09:07 Dose: 4 gm Dextrose (Dextrose 50% Inj) 0 ml IV STAT PRN; Protocol PRN Reason: Hypoglycemia Protocol Last Admin: 05/16/18 23:40 Dose: 50 ml Dextrose (Glutose 15) 0 gm PO ONCE PRN; Protocol PRN Reason: Hypoglycemia Protocol Diphenhydramine HCl (Benadryl) 25 mg IVP QPM PRN PRN Reason: Insomnia Last Admin: 06/18/18 19:30 Dose: 25 mg Enoxaparin Sodium (Lovenox) 40 mg SC DAILY [facility] Last Admin: 06/19/18 09:08 Dose: 40 mg Ergocalciferol (Drisdol 50,000 Intl Units Cap) 1 cap PO Q7D [facility] Stop: 07/20/18 10:31 Last Admin: 06/15/18 10:40 Dose: 1 cap Escitalopram Oxalate (Lexapro) 10 mg GT DAILY [facility] Last Admin: 06/19/18 09:07 Dose: 10 mg Glucagon (Glucagen Diagnostic Kit) 0 mg IM STAT PRN; Protocol PRN Reason: Hypoglycemia Protocol Hydrocortisone (Cortizone 1% Cream) 0 gm TOP TID PRN PRN Reason: Rash Hydromorphone HCl (Dilaudid) 1.5 mg IVP Q3 PRN PRN Reason: Pain, SEVERE (8-10) Last Admin: 06/19/18 07:50 Dose: 1.5 mg Vancomycin HCl 1.5 gm/ Sodium (Chloride) 500 mls @ 333.333 mls/hr IVPB Q12H [facility] PRN Reason: Protocol Last Admin: 06/19/18 00:18 Dose: 333.333 mls/hr Insulin Human Regular (Novolin R) 0 unit SC Q6 [facility] PRN Reason: Protocol Last Admin: 06/19/18 06:20 Dose: Not Given Ipratropium [place] (Atrovent) 0.5 mg IH RQ6 [facility] Last Admin: 06/19/18 08:35 Dose: 0.5 mg Lactobacillus Acidophilus (Bacid Acidophilus) 1 cap PEG BID [facility] Last Admin: 06/19/18 09:07 Dose: 1 cap Loperamide HCl (Imodium) 1 mg PO Q2H PRN PRN Reason: Diarrhea Last Admin: 06/18/18 10:03 Dose: 1 mg Lorazepam (Ativan) 1 mg IVP BID [facility] Last Admin: 06/19/18 09:08 Dose: 1 mg Metoprolol Tartrate (Lopressor) 5 mg IVP Q6H [facility] Last Admin: 06/19/18 09:26 Dose: Not Given Nicotine (Nicoderm Cq) 1 patch TD DAILY [facility] Last Admin: 06/19/18 09:07 Dose: 1 patch Ondansetron HCl (Zofran Inj) 4 mg IVP Q6H PRN PRN Reason: Nausea/Vomiting Last Admin: 06/18/18 11:50 Dose: 4 mg Pantoprazole Sodium (Protonix Susp) 40 mg PO Q24H [facility] Last Admin: 06/19/18 09:08 Dose: 40 mg Saliva Substitute (Mouth Kote 236 Ml) 0 ml MM Q6 PRN PRN Reason: Dry mouth Vitamin A (Vitamin A & D Oint Ud Foilpak) 1 ea TOP Q8 PRN PRN Reason: dry lips Last Admin: 05/20/18 11:10 Dose: 1 ea Vitamin E (Vitamin E 400 Units Cap) 400 intlu GT DAILY [facility] Last Admin: 06/19/18 09:07 Dose: 400 intlu - Labs Labs: 06/19/18 07:06 06/19/18 07:06 PT 14.3 SECONDS (9.7-12.2) H 06/10/18 07:05 INR 1.3 06/10/18 07:05 APTT 33 SECONDS (21-34) 05/25/18 06:16 Attending/Attestation - Attestation I have personally seen and examined this patient.: Yes I have fully participated in the care of the patient.: Yes I have reviewed all pertinent clinical information, including history, physical exam and plan: Yes Notes (Text): Pt was seen and examined at bedside Agree with above note and assessment Pt is improving clinically c/w wound vac and tube feed OOB to walk Plan d.w pt in detail Risk and benefit explained in detail.
[2018-06-11] MEDS: Loperamide Hydrochloride 1 mg/5 ml Cup PO PRN (10:41)
[2018-06-11] MEDS: Pantoprazole 40 mg Susp UD PO SCH (10:43)
[2018-06-11] MEDS: Lactobacillus Acidophilus 500 MU Cap PEG SCH ×2 (10:43→17:47)
[2018-06-11] MEDS: Enoxaparin 40 mg Syringe SC SCH (10:43)
[2018-06-11] MEDS: Cholestyramine 4 gm/Pkt UD PO SCH ×2 (10:43→17:48)
[2018-06-11] MEDS: Nystatin 100,000 Units/gm Cream(15 gm) TOP SCH ×3 (10:44→21:46)
[2018-06-11] MEDS ORDERED: Magnesium Sulfate 1 gm in D5W 1 GM/100 ML BAG IVPB ONE (11:00)
[2018-06-11] MEDS: Ciprofloxacin 400mg/200ml D5W 400 MG/200 ML BAG IVPB SCH (13:40)
[2018-06-11] MEDS: DiphenhydrAMINE 50 mg/ml Inj IVP PRN (21:32)
--- NOTE | 2018-06-11 22:12 | CP.PCM.PN ---
Subjective - Date & Time of Evaluation Date of Evaluation: 06/11/18 Time of Evaluation: 14:15 - Subjective Subjective: dictated Objective - Vital Signs/Intake and Output Vital Signs (last 24 hours): Temp Pulse Resp BP Pulse Ox 98.4 F 102 H 20 122/82 97 06/11/18 15:00 06/11/18 17:15 06/11/18 17:15 06/11/18 17:15 06/11/18 15:00 - Medications Medications: Current Medications Acetaminophen (Tylenol 650mg/20.3ml Solution Ud) 975 mg GT Q8 [facility] Last Admin: 06/11/18 21:44 Dose: Not Given Cholestyramine Resin (Questran) 4 gm PO BID [facility] Last Admin: 06/11/18 17:48 Dose: 4 gm Dextrose (Dextrose 50% Inj) 0 ml IV STAT PRN; Protocol PRN Reason: Hypoglycemia Protocol Last Admin: 05/16/18 23:40 Dose: 50 ml Dextrose (Glutose 15) 0 gm PO ONCE PRN; Protocol PRN Reason: Hypoglycemia Protocol Diphenhydramine HCl (Benadryl) 25 mg IVP HS PRN PRN Reason: Insomnia Last Admin: 06/11/18 21:32 Dose: 25 mg Enoxaparin Sodium (Lovenox) 40 mg SC DAILY [facility] Last Admin: 06/11/18 10:43 Dose: 40 mg Ergocalciferol (Drisdol 50,000 Intl Units Cap) 1 cap PO Q7D [facility] Stop: 07/20/18 10:31 Last Admin: 06/08/18 10:55 Dose: 1 cap Escitalopram Oxalate (Lexapro) 10 mg GT DAILY [facility] Last Admin: 06/11/18 10:44 Dose: 10 mg Glucagon (Glucagen Diagnostic Kit) 0 mg IM STAT PRN; Protocol PRN Reason: Hypoglycemia Protocol Hydrocortisone (Cortizone 1% Cream) 0 gm TOP TID PRN PRN Reason: Rash Hydromorphone HCl (Dilaudid) 1.5 mg IVP Q3 PRN PRN Reason: Pain, SEVERE (8-10) Last Admin: 06/11/18 19:52 Dose: 1.5 mg Metronidazole (Flagyl) 500 mg in 100 mls @ 100 mls/hr IVPB Q8H [facility] PRN Reason: Protocol Last Admin: 09/01/18 19:58 Dose: 100 mls/hr Ciprofloxacin (Cipro 400mg/200ml Dsw) 400 mg in 200 mls @ 133 mls/hr IVPB Q12H [facility] PRN Reason: Protocol Last Admin: 06/11/18 13:40 Dose: 133 mls/hr Insulin Human Regular (Novolin R) 0 unit SC Q6 [facility] PRN Reason: Protocol Last Admin: 06/11/18 18:07 Dose: Not Given Ipratropium [place] (Atrovent) 0.5 mg IH RQ6 [facility] Last Admin: 06/11/18 19:38 Dose: 0.5 mg Lactobacillus Acidophilus (Bacid Acidophilus) 1 cap PEG BID [facility] Last Admin: 06/11/18 17:47 Dose: 1 cap Loperamide HCl (Imodium) 1 mg PO Q2H PRN PRN Reason: Diarrhea Last Admin: 06/11/18 10:41 Dose: 1 mg Lorazepam (Ativan) 1 mg IVP BID [facility] Last Admin: 06/11/18 17:47 Dose: 1 mg Metoprolol Tartrate (Lopressor) 5 mg IVP Q6H [facility] Last Admin: 06/11/18 17:15 Dose: 5 mg Nicotine (Nicoderm Cq) 1 patch TD DAILY [facility] Last Admin: 06/11/18 10:41 Dose: 1 patch Nystatin (Mycostatin Cream) 0 ea TOP TID [facility] Last Admin: 06/11/18 21:46 Dose: Not Given Ondansetron HCl (Zofran Inj) 4 mg IVP Q6H PRN PRN Reason: Nausea/Vomiting Last Admin: 06/11/18 20:03 Dose: 4 mg Pantoprazole Sodium (Protonix Susp) 40 mg PO DAILY [facility] Last Admin: 06/11/18 10:43 Dose: 40 mg Saliva Substitute (Mouth Kote 236 Ml) 0 ml MM Q6 PRN PRN Reason: Dry mouth Vitamin A (Vitamin A & D Oint Ud Foilpak) 1 ea TOP Q8 PRN PRN Reason: dry lips Last Admin: 05/20/18 11:10 Dose: 1 ea - Labs Labs: 06/11/18 07:33 06/11/18 07:33 PT 14.3 SECONDS (9.7-12.2) H 06/10/18 07:05 INR 1.3 06/10/18 07:05 APTT 33 SECONDS (21-34) 05/25/18 06:16
--- NOTE | 2018-06-12 00:50 | PN ---
Copied To: Guero Rivera MD Attending MD: Guero Rivera MD DATE: 06/11/2018 SUBJECTIVE: The patient was seen. She says that tube was changed recently, and she showed me her abdominal wound. The wound VAC was changed as it was leaking, but it was intact now. She has developed some excoriation around the skin which is improving now. She is still with the NG tube and has been getting feedings through the jejunostomy tube but seemed to be comfortable and pain seemed to be controlled. PHYSICAL EXAMINATION: VITAL SIGNS: T-max is 98.4, pulse of 101, blood pressure 119/80, respirations 20. HEENT: Head is atraumatic, normocephalic. NECK: Supple. LUNGS: Clear to auscultation. HEART: S1, S2 are regular. ABDOMEN: Soft, nontender. No guarding, no rigidity present. She does have a jejunostomy tube and has a wound VAC to the midline surgical wound. EXTREMITIES: Had no edema. LABORATORY DATA: Labs are noted. Labs show white count is 8.1, hemoglobin 9.5, hematocrit 27.8, platelet count is 379. BUN is 5, creatinine 0.5. ASSESSMENT AND PLAN: She is still on the antibiotics, Cipro and Flagyl. She is getting Mycostatin cream. Diflucan fell off. On 05/31/2018, had Acinetobacter and Enterococcus which were Cipro sensitive, and she was placed on that, so we will follow and hopefully will repeat the wound culture again to see if they are improving and disappearing on the next wound dressing change which will be probably on Wednesday. Guero Rivera MD
[2018-06-12] MEDS: Ipratropium 0.02% Inhal Soln (0.5 mg/2.5 ml) UD IH SCH ×4 (01:22→19:12)
[2018-06-12] MEDS: Ciprofloxacin 400mg/200ml D5W 400 MG/200 ML BAG IVPB SCH ×2 (01:30→14:26)
--- NOTE | 2018-06-12 02:48 | CP.PCM.PN ---
<Tamia Romano Y - Last Filed: 06/12/18 02:45> Subjective - Date & Time of Evaluation Date of Evaluation: 06/12/18 Time of Evaluation: 02:45 - Subjective Subjective: PGY-1 Medicine Progress Note for Dr. Turk Patient was seen and examined at bedside in no acute distress. Patient appears comfortable despite 2 episode of vomiting overnight, each about 50mL per nurse. It was the same color and consistency of what has been suctioned out of her NGT , which is on intermittent suctioning. Admits to 3 episodes of diarrhea in the last 24 hours. Denies chest pain, headache, dizziness, fever, chills. Abdominal soreness unchanged. Objective - Vital Signs/Intake and Output Vital Signs (last 24 hours): Temp Pulse Resp BP Pulse Ox 98.8 F 110 H 20 135/82 99 06/11/18 23:00 06/11/18 23:00 06/11/18 23:00 06/11/18 23:00 06/11/18 23:00 Intake and Output: 06/11/18 06/12/18 18:59 06:59 Intake Total 290 Output Total 300 Balance -10 - Medications Medications: Current Medications Acetaminophen (Tylenol 650mg/20.3ml Solution Ud) 975 mg GT Q8 [facility] Last Admin: 06/11/18 21:44 Dose: Not Given Cholestyramine Resin (Questran) 4 gm PO BID [facility] Last Admin: 06/11/18 17:48 Dose: 4 gm Dextrose (Dextrose 50% Inj) 0 ml IV STAT PRN; Protocol PRN Reason: Hypoglycemia Protocol Last Admin: 05/16/18 23:40 Dose: 50 ml Dextrose (Glutose 15) 0 gm PO ONCE PRN; Protocol PRN Reason: Hypoglycemia Protocol Diphenhydramine HCl (Benadryl) 25 mg IVP HS PRN PRN Reason: Insomnia Last Admin: 06/11/18 21:32 Dose: 25 mg Enoxaparin Sodium (Lovenox) 40 mg SC DAILY [facility] Last Admin: 06/11/18 10:43 Dose: 40 mg Ergocalciferol (Drisdol 50,000 Intl Units Cap) 1 cap PO Q7D [facility] Stop: 07/20/18 10:31 Last Admin: 06/08/18 10:55 Dose: 1 cap Escitalopram Oxalate (Lexapro) 10 mg GT DAILY [facility] Last Admin: 06/11/18 10:44 Dose: 10 mg Glucagon (Glucagen Diagnostic Kit) 0 mg IM STAT PRN; Protocol PRN Reason: Hypoglycemia Protocol Hydrocortisone (Cortizone 1% Cream) 0 gm TOP TID PRN PRN Reason: Rash Hydromorphone HCl (Dilaudid) 1.5 mg IVP Q3 PRN PRN Reason: Pain, SEVERE (8-10) Last Admin: 06/12/18 01:29 Dose: 1.5 mg Metronidazole (Flagyl) 500 mg in 100 mls @ 100 mls/hr IVPB Q8H [facility] PRN Reason: Protocol Last Admin: 06/11/18 19:58 Dose: 100 mls/hr Ciprofloxacin (Cipro 400mg/200ml Dsw) 400 mg in 200 mls @ 133 mls/hr IVPB Q12H [facility] PRN Reason: Protocol Last Admin: 06/12/18 01:30 Dose: 133 mls/hr Insulin Human Regular (Novolin R) 0 unit SC Q6 [facility] PRN Reason: Protocol Last Admin: 06/11/18 23:44 Dose: Not Given Ipratropium Tappan (Atrovent) 0.5 mg IH RQ6 [facility] Last Admin: 06/12/18 01:22 Dose: Not Given Lactobacillus Acidophilus (Bacid Acidophilus) 1 cap PEG BID [facility] Last Admin: 06/11/18 17:47 Dose: 1 cap Loperamide HCl (Imodium) 1 mg PO Q2H PRN PRN Reason: Diarrhea Last Admin: 06/11/18 10:41 Dose: 1 mg Lorazepam (Ativan) 1 mg IVP BID [facility] Last Admin: 06/11/18 17:47 Dose: 1 mg Metoprolol Tartrate (Lopressor) 5 mg IVP Q6H [facility] Last Admin: 06/11/18 23:15 Dose: 5 mg Nicotine (Nicoderm Cq) 1 patch TD DAILY [facility] Last Admin: 06/11/18 10:41 Dose: 1 patch Nystatin (Mycostatin Cream) 0 ea TOP TID [facility] Last Admin: 06/11/18 21:46 Dose: Not Given Ondansetron HCl (Zofran Inj) 4 mg IVP Q6H PRN PRN Reason: Nausea/Vomiting Last Admin: 06/11/18 20:03 Dose: 4 mg Pantoprazole Sodium (Protonix Susp) 40 mg PO DAILY [facility] Last Admin: 06/11/18 10:43 Dose: 40 mg Saliva Substitute (Mouth Kote 236 Ml) 0 ml MM Q6 PRN PRN Reason: Dry mouth Vitamin A (Vitamin A & D Oint Ud Foilpak) 1 ea TOP Q8 PRN PRN Reason: dry lips Last Admin: 05/20/18 11:10 Dose: 1 ea - Labs Labs: 06/11/18 07:33 06/11/18 07:33 PT 14.3 SECONDS (9.7-12.2) H 06/10/18 07:05 INR 1.3 06/10/18 07:05 APTT 33 SECONDS (21-34) 05/25/18 06:16 - Constitutional Appears: No Acute Distress, Chronically Ill - Head Exam Head Exam: ATRAUMATIC, NORMOCEPHALIC - Eye Exam Eye Exam: EOMI, Normal appearance - ENT Exam ENT Exam: Mucous Membranes Moist - Respiratory Exam Respiratory Exam: Clear to Ausculation Bilateral, NORMAL BREATHING PATTERN. absent: Rales, Rhonchi, Wheezes - Cardiovascular Exam Cardiovascular Exam: REGULAR RHYTHM, +S1, +S2. absent: Murmur - GI/Abdominal Exam GI & Abdominal Exam: Soft, Normal Bowel Sounds. absent: Tenderness Additional comments: wound vac in place, not leaking, no surrounding erythema, edema. 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 Harley (surgery) on the case * wound vac to continuous suction * Following Bariatric surgeon (Dr. Mccray) recs---Will plan for exchange of ojeda G-tube for a larger size Gtube preferably at least 24Fr in size with IR. current recs no worship of continuity operation until 5 weeks after 05/16 surgery * Current drainage from mildine incision possibly d/t leak of tube feed contents from around gastrostomy tube vs fistula--wound vac in place Cultures: * Peritoneal Fluid (05/14/18): Pseudomonas Aeruginosa sensitive to Meropenem * Wound Culture (05/23/18): Yudith albicans * Blood culture (05/15/18, 05/22/18): no growth * Urine culture (05/22/18): no growth * Incision site 05/31: Enterococcus faecalis, Acinetobacter baumannii * repeat wound culture during next wound vac change per ID Antibiotics - Continue Cipro 400 mg IV q12hrs (started 06/02) - Continue Flagyl 500mg IVPB Q8H (active since 05/15/18) - Continue Nystatin cream TID for G-tube site (Yudith) - Discontinued Meropenem 1 gm IVPB Q8H (active since 05/15/18-05/27/18) Measure vitamin levels and replace as needed - Vit D <12.8- vit D 50,000 units q1wk x8 wks - B12 707, wnl - Folate 12.6, wnl - Vit A 42, wnl - Alpha Vit E 5.6, wnl Medications: - Continue Tylenol 975 mg liq q8hrs - Continue Dilaudid 1.5 mg IV q3hrs PRN - Continue Zofran 4mg IV q6hrs PRN - PT consulted- working with patient, current rec TCU following discharge Tachycardia, persistent (110s-130s)- possibly etiologies include pain, infection , anxiety - She is being treated for Left G Tube fluid infection. - Continue Ativan PRN. - Continue Dilaudid on board to be used PRN. - Continue Metoprolol tartrate 5 mg IV q6hrs with holding parameters (SBP <100, HR <60) Diarrhea, acute, improving- suspect secondary to PO intake by pt - C. Diff (05/22, 05/24, 05/28): negative - Stool O&P (05/25/18): negative - Stool leukocytes (05/25/18): negative - per ID continue Flagyl due to leak around wound vac Anxiety - [employer] consulted- pt initially refused but then accepted - Psychiatry consulted (Dr. Reyez)- managing Ativan - Continue Ativan 1 mg IV BID - Continue Lexapro 10 mg GT daily (started 05/31) Anemia, acute, stable, pt denies blood in stool - Patient received a total of 2 PRBC (on 05/16) and 4 FFP (on 05/15 to 05/16) - Iron 16, TIBC 205, % sat 4.7, ferritin 75.3 - Monitor CBC Q2D Thombocytosis, improving (504)- suspect reactive to pain, surgery - Resolved - Monitor CBC Q2D Diabetes Mellitus, Type 2, controlled - From prior note: Admittedly non-compliant, has not taken Januvia for one year - Accuchecks q6hrs - Hypoglycemic protocol - ISS regular - HbA1c 5.8 - History of gastric bypass surgery Hypercholesterolemia- untreated - LDL 38, HDL 14, Chol 104, TG 226 - History of gastric bypass surgery History of Hypertension, controlled- since gastric bypass has not taken meds - Metoprolol 5 mg IV q6hrs History of Obesity, resolved - s/p gastric bypass surgery in 2013 History of Asthma - Chronic - Atrovent q6hrs Nicotine use disorder - Chronic - From prior note: 1ppd x 20 yrs, 1/2 ppd x 3 yrs - Continue Nicoderm 1 patch TD QD Hypokalemia - Resolved - 3.6 WNL on 06/10 - 3.5 on 06/09, replenished w/ 20 meq KCl IVP, f/u w/ Q2D labs Hypomagnesemia - Resolved - 1.6 on 06/10 repleanished w/ 1gm in AM, will f/u w/ Q2D labs - 1.5 on 06/09, replenished w/ 1gm in AM, will f/u w/ Q2D labs Leukocytosis, trending downwards - likely secondary to to ischemic bowel secondary to small bowel obstruction and surgeries - Resolved - Cultures: Peritoneal Fluid (05/14/18): Pseudomonas Aeruginosa sensitive to Meropenem Wound Culture (05/23/18): Yudith albicans Blood culture (05/15/18, 05/22/18): no growth Urine culture (05/22/18): no growth - Wound Cx from incision site 05/31: Enterococcus faecalis, Acinetobacter baumannii, on ciprofloxacin 400 mg (started 06/02) - Monitor CBC Q2D Prophylaxis - Hydrocortisone 1% Cream topical TID for Right Upper Inner Arm macular rash- improved - Vitamin A&D topical q8hrs PRN for dry lips - Saliva substitute q6hrs PRN for dry mouth - IVF: not indicated - VTE ppx: Lovenox 40 mg SC daily, SCDs; encourage ambulation - GI ppx: Protonix 40 mg IV BID, Florastor BID - Code status: full code will d/w Dr. Burke Romano PGY-1 <Doretha Turk V - Last Filed: 06/12/18 09:09> Objective - Vital Signs/Intake and Output Vital Signs (last 24 hours): Temp Pulse Resp BP Pulse Ox 99.6 F 100 H 18 113/79 96 06/12/18 07:00 06/12/18 07:59 06/12/18 07:00 06/12/18 07:00 06/12/18 07:00 Intake and Output: 06/12/18 06/12/18 06:59 18:59 Intake Total 750 Output Total 800 Balance -50 - Medications Medications: Current Medications Acetaminophen (Tylenol 650mg/20.3ml Solution Ud) 975 mg GT Q8 [facility] Last Admin: 06/12/18 05:43 Dose: 975 mg Cholestyramine Resin (Questran) 4 gm PO BID [facility] Last Admin: 06/11/18 17:48 Dose: 4 gm Dextrose (Dextrose 50% Inj) 0 ml IV STAT PRN; Protocol PRN Reason: Hypoglycemia Protocol Last Admin: 05/16/18 23:40 Dose: 50 ml Dextrose (Glutose 15) 0 gm PO ONCE PRN; Protocol PRN Reason: Hypoglycemia Protocol Diphenhydramine HCl (Benadryl) 25 mg IVP HS PRN PRN Reason: Insomnia Last Admin: 06/11/18 21:32 Dose: 25 mg Enoxaparin Sodium (Lovenox) 40 mg SC DAILY [facility] Last Admin: 06/11/18 10:43 Dose: 40 mg Ergocalciferol (Drisdol 50,000 Intl Units Cap) 1 cap PO Q7D [facility] Stop: 07/20/18 10:31 Last Admin: 06/08/18 10:55 Dose: 1 cap Escitalopram Oxalate (Lexapro) 10 mg GT DAILY [facility] Last Admin: 06/11/18 10:44 Dose: 10 mg Glucagon (Glucagen Diagnostic Kit) 0 mg IM STAT PRN; Protocol PRN Reason: Hypoglycemia Protocol Hydrocortisone (Cortizone 1% Cream) 0 gm TOP TID PRN PRN Reason: Rash Hydromorphone HCl (Dilaudid) 1.5 mg IVP Q3 PRN PRN Reason: Pain, SEVERE (8-10) Last Admin: 06/12/18 07:02 Dose: 1.5 mg Metronidazole (Flagyl) 500 mg in 100 mls @ 100 mls/hr IVPB Q8H [facility] PRN Reason: Protocol Last Admin: 06/12/18 03:28 Dose: 100 mls/hr Ciprofloxacin (Cipro 400mg/200ml Dsw) 400 mg in 200 mls @ 133 mls/hr IVPB Q12H [facility] PRN Reason: Protocol Last Admin: 06/12/18 01:30 Dose: 133 mls/hr Insulin Human Regular (Novolin R) 0 unit SC Q6 [facility] PRN Reason: Protocol Last Admin: 06/12/18 06:25 Dose: Not Given Ipratropium Tappan (Atrovent) 0.5 mg IH RQ6 [facility] Last Admin: 06/12/18 01:22 Dose: Not Given Lactobacillus Acidophilus (Bacid Acidophilus) 1 cap PEG BID [facility] Last Admin: 06/11/18 17:47 Dose: 1 cap Loperamide HCl (Imodium) 1 mg PO Q2H PRN PRN Reason: Diarrhea Last Admin: 06/11/18 10:41 Dose: 1 mg Lorazepam (Ativan) 1 mg IVP BID [facility] Last Admin: 06/11/18 17:47 Dose: 1 mg Metoprolol Tartrate (Lopressor) 5 mg IVP Q6H [facility] Last Admin: 06/12/18 03:28 Dose: 5 mg Nicotine (Nicoderm Cq) 1 patch TD DAILY [facility] Last Admin: 06/11/18 10:41 Dose: 1 patch Nystatin (Mycostatin Cream) 0 ea TOP TID [facility] Last Admin: 06/11/18 21:46 Dose: Not Given Ondansetron HCl (Zofran Inj) 4 mg IVP Q6H PRN PRN Reason: Nausea/Vomiting Last Admin: 06/12/18 07:01 Dose: 4 mg Pantoprazole Sodium (Protonix Susp) 40 mg PO DAILY [facility] Last Admin: 06/11/18 10:43 Dose: 40 mg Saliva Substitute (Mouth Kote 236 Ml) 0 ml MM Q6 PRN PRN Reason: Dry mouth Vitamin A (Vitamin A & D Oint Ud Foilpak) 1 ea TOP Q8 PRN PRN Reason: dry lips Last Admin: 05/20/18 11:10 Dose: 1 ea - Labs Labs: 06/11/18 07:33 06/11/18 07:33 PT 14.3 SECONDS (9.7-12.2) H 06/10/18 07:05 INR 1.3 06/10/18 07:05 APTT 33 SECONDS (21-34) 05/25/18 06:16 Assessment and Plan (1) Ischemic bowel disease Status: Acute (2) Obesity (BMI 30-39.9) Status: Acute (3) Small bowel obstruction Status: Acute (4) Prophylactic measure Status: Acute Attending/Attestation - Attestation I have personally seen and examined this patient.: Yes I have fully participated in the care of the patient.: Yes I have reviewed all pertinent clinical information, including history, physical exam and plan: Yes Notes (Text): Patient seen, examined and case discussed with day-time resident. Patient seen this morning. Patient reports diarrhea, is about twice overnight. Patient reports she vomitted twice this morning. Discussed with RN, confirmed. There is not leaking over the surgery site, but I did advised the Rn to reinforced by surgery since it is starting to peel. I have check her backside no sacral decub. Patient appears pain controlled. Patient appears very comfortable. Patient does not have any leaking over the surgery site on the abdomen. +bowel sounds. Per ID, Will need a repeat wound culture at next dressing change. Start Vitamin E supplementation Pending B1, B6 for supplementation If wound culture shows clearance, suggest iron supplementation. Assessment/Plan (1) Ischemic bowel disease Assessment & Plan: * Dr. Harley (surgery) on the case-->help appreciated * Preoperative/intraoperative/postoperative management per surgery * Following Bariatric surgeon (Dr. Mccray) recommendations--current recommending no worship of continuity operation until 5 weeks after most recent surgery--patient needs to fully medically optimized prior to OR * Continue wound vac to suction * Continue tube feeds for nutrition * Continue NGT to intermittent suction * Continue antibiotics, PRN pain medications * Dr. Alvarado (GI) on the case-->help appreciated * Dr. Rivera (ID) on the case-->help appreciated * Brief summary of: * Patient has had 2 bloody bowel movements started 05/14/18. Patient's rectal: blood. She had reported abdominal pain has worsening since night of admission. Patient required emergent surgical intervention on 05/14/18 and transferred to ICU. Per operative note (05/14/18): Diagnostic laparoscopy, Exploratory laparotomy , Reduction of internal hernia, Lysis of adhesions, Drainage of abdominal collections, temporary abdominal closure, EGD * Ischemia of yenni limb, internal hernia. Naveed drain stitched to distal common limb * Patient underwent surgery again on 05/16/18.Re-exploration, Small bowel resection of ileum, small bowel resection of Yenni limb with gastrojejunostomy, reversal of bypass, primary anastomosis of ileum-ileum, ileum-ileum, and ileum- jejunum, Gastrostomy tube in bypassed stomach, EGD. Patient extubated 05/16/18. Patient is pending surgery intervention to restore GI motility in 5 weeks pending nutritional status. Measure vitamin levels and replace as needed * Vit D <12.8- vit D 50,000 units q1wk x8 wks * Prealbumin 18.1 * B12 707 * Folate 12.6 * Vitamin A: 42 * Vitamin E: 5.6 (low)-->replete * Pending B1 and B6 * Drains included: NGT Tube in place, Ojeda in place of gastrostomy tube, left min removed 05/25/18; right min was removed 05/23/18; no ojeda; wound vac placed on * IV abx: * Flagyl 500mg IVPB Q8H (active since 05/15/18)-->Per ID to continue given diarrhea and anaerobic coverage for wound infection * Cultures: * Peritoneal Fluid : Pseudomonas Aeruginosa sensitive to Meropenem (05/15-05/27) * Wound Culture (05/23): Yudith Albican--->Diflucan since 05/22/18 until 05/30/18 * Incision site 05/31: Enterococcus faecalis, Acinetobacter baumannii---> Ciprofloxacin 400mg IVPB Q12H (active since 06/03/18) * Blood culture (05/15/18): no growth after 5 days X2 * Blood culture (05/22/18): no growth after 5 days X2 * Urine culture: no growth * PRNS: * Tylenol 975 mg liq q8hrs * Dilaudid 1.5 mg IV q3hrs PRN * Zofran 4mg IV q6hrs PRN * Ativan 1mg IV BID anxiety-->per psych * Diarrhea * Patient is Questran 4gm PO BID * Patient is on Flagyl to cover for C. Dif. C. Dif Negative X3 Status: Acute (2) Small bowel obstruction Assessment & Plan: * Secondary to hernia * Further details noted in #1 Status: Acute (3) Obesity (BMI 30-39.9) Assessment & Plan: * s/p gastric bypass surgery in 2013 * Operative note (2013): Yenni-en-Y gastric bypass surgery * Given nature of ischemic bowel affecting portioning of the gastric limb, she will need to wait at least 5 weeks to restoring GI motility when she is nutritionally optimized Status: Acute (4) Status post gastric bypass for obesity Assessment & Plan: * status post gastric bypass 2013 * Operative note (2013): Yenni-en-Y gastric bypass surgery * Patient noncomplaint with following up postoperative. Status: Acute (5) History of Asthma Assessment & Plan: * Patient not in acute exacerbation prior to OR * Atrovent Q6H (6) Diabetes Mellitus (Type 2); controlled Assessment & Plan: * From prior note: * Admittedly non-compliant - has not taken Januvia for one year * Accuchecks Q6H * Hypoglycemic protocol * HbA1c - 6.3 (03/10/17) * hgba1c: 5.8 * History of gastric bypass surgery (8) Hx of HTN (hypertension) Assessment & Plan: * Since Gastric Bypass has not taken meds (9) Hx of Hypothyroid Assessment & Plan: * From prior note: * Pt admits non-compliance (10) Hypercholesterolemia Assessment & Plan: * From prior note: * Pt not taking meds * LDL 138, HDL 67, Tchol 220, Trig 112 * History of gastric bypass surgery (11) Anxiety Assessment & Plan: * Psychiatry (Dr. 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 Assessment & Plan: * 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 and from my prior note from last hospitalization (13) Smoker Assessment & Plan: * From my prior note: 1ppd x 20 yrs, 1/2 ppd x 3 yrs * Nicoderm 1 patch TD patchy (14) Tachycardia Assessment & Plan: * Lopressor 5mg IVQ6H xavier (15) Prophylactic measure Assessment & Plan: * Bacid Acidophilus 1 cap PEG BID * Lovenox 40mg subqdaily for DVT ppx * PICC line 06/01/18 * protonix 40mg IV Qdaily * Vitamin A&D ointment 1 each top Q8H * NGT Tube * IR exchange of Ojeda to 24 slovenian gauge 06/10/18 * Wound vac 06/03/18 placed * Dressing changed * Feed orders: * Patient is currently on Osmolite via G Tube which has the following components. * MCT Oil (benefits in situations with malabsorption and is low residue) * 1440 calories; 70 gm protein; 914 ml free water * Should at any time the patient require TPN then we can try the following options: * 83 ml/hr: 2100 tete, 100 gm protein * 63 ml/hr: 1575 tete, 75 gm protein * 20% Intrilipid every other day with either one of the TPN rates mentioned above Status: Acute Disposition: Follow-up remain Vitamin levels for repletion. Patient has received Medicaid. Monitor diarrhea.
[2018-06-12] MEDS: metroNIDAZOLE IV 500 mg/100 ml 500 MG/100 ML BAG IVPB SCH ×3 (03:28→19:35)
[2018-06-12] MEDS: Metoprolol 1 mg/ml Inj IVP SCH ×4 (03:28→22:16)
[2018-06-12] MEDS: Acetaminophen 650mg/20.3ml solution UD GT SCH ×3 (05:43→22:15)
[2018-06-12] MEDS: (Novolin R) Insulin Human Regular 100 units/ml vial SC SCH ×3 (06:25→18:51)
--- NOTE | 2018-06-12 09:06 | CP.PCM.PN ---
<Barbara Badillo - Last Filed: 06/12/18 21:41> Subjective - Date & Time of Evaluation Date of Evaluation: 06/12/18 Time of Evaluation: 09:04 - Subjective Subjective: General surgery progress note for Dr. Harley-Barbara Badillo, PGY-2 Pt S & E at bedside at 0645 Pt reports nausea with NGT now putting out 700 cc light brownish thick output/ 12hrs. Continues with abdominal pain, reports emesis yesterday evening. 400 UOP over 12 hrs. On tube feeds at 30 cc/hr. Denies F & C. Wound vac cannister without output over 12hrs. Objective - Vital Signs/Intake and Output Vital Signs (last 24 hours): Temp Pulse Resp BP Pulse Ox 99.6 F 100 H 18 113/79 96 06/12/18 07:00 06/12/18 07:59 06/12/18 07:00 06/12/18 07:00 06/12/18 07:00 Intake and Output: 06/12/18 06/12/18 06:59 18:59 Intake Total 750 Output Total 800 Balance -50 - Medications Medications: Current Medications Acetaminophen (Tylenol 650mg/20.3ml Solution Ud) 975 mg GT Q8 [facility] Last Admin: 06/12/18 05:43 Dose: 975 mg Cholestyramine Resin (Questran) 4 gm PO BID [facility] Last Admin: 06/11/18 17:48 Dose: 4 gm Dextrose (Dextrose 50% Inj) 0 ml IV STAT PRN; Protocol PRN Reason: Hypoglycemia Protocol Last Admin: 05/16/18 23:40 Dose: 50 ml Dextrose (Glutose 15) 0 gm PO ONCE PRN; Protocol PRN Reason: Hypoglycemia Protocol Diphenhydramine HCl (Benadryl) 25 mg IVP HS PRN PRN Reason: Insomnia Last Admin: 06/11/18 21:32 Dose: 25 mg Enoxaparin Sodium (Lovenox) 40 mg SC DAILY [facility] Last Admin: 06/11/18 10:43 Dose: 40 mg Ergocalciferol (Drisdol 50,000 Intl Units Cap) 1 cap PO Q7D [facility] Stop: 07/20/18 10:31 Last Admin: 06/08/18 10:55 Dose: 1 cap Escitalopram Oxalate (Lexapro) 10 mg GT DAILY [facility] Last Admin: 06/11/18 10:44 Dose: 10 mg Glucagon (Glucagen Diagnostic Kit) 0 mg IM STAT PRN; Protocol PRN Reason: Hypoglycemia Protocol Hydrocortisone (Cortizone 1% Cream) 0 gm TOP TID PRN PRN Reason: Rash Hydromorphone HCl (Dilaudid) 1.5 mg IVP Q3 PRN PRN Reason: Pain, SEVERE (8-10) Last Admin: 06/12/18 07:02 Dose: 1.5 mg Metronidazole (Flagyl) 500 mg in 100 mls @ 100 mls/hr IVPB Q8H [facility] PRN Reason: Protocol Last Admin: 06/12/18 03:28 Dose: 100 mls/hr Ciprofloxacin (Cipro 400mg/200ml Dsw) 400 mg in 200 mls @ 133 mls/hr IVPB Q12H [facility]AT[facility]N PRN Reason: Protocol Last Admin: 06/12/18 01:30 Dose: 133 mls/hr Insulin Human Regular (Novolin R) 0 unit SC Q6 [facility]N PRN Reason: Protocol Last Admin: 06/12/18 06:25 Dose: Not Given Ipratropium [place] (Atrovent) 0.5 mg IH RQ6 [facility] Last Admin: 06/12/18 01:22 Dose: Not Given Lactobacillus Acidophilus (Bacid Acidophilus) 1 cap PEG BID [facility] Last Admin: 06/11/18 17:47 Dose: 1 cap Loperamide HCl (Imodium) 1 mg PO Q2H PRN PRN Reason: Diarrhea Last Admin: 06/11/18 10:41 Dose: 1 mg Lorazepam (Ativan) 1 mg IVP BID [facility] Last Admin: 06/11/18 17:47 Dose: 1 mg Metoprolol Tartrate (Lopressor) 5 mg IVP Q6H [facility] Last Admin: 06/12/18 03:28 Dose: 5 mg Nicotine (Nicoderm Cq) 1 patch TD DAILY [facility] Last Admin: 06/11/18 10:41 Dose: 1 patch Nystatin (Mycostatin Cream) 0 ea TOP TID [facility] Last Admin: 06/11/18 21:46 Dose: Not Given Ondansetron HCl (Zofran Inj) 4 mg IVP Q6H PRN PRN Reason: Nausea/Vomiting Last Admin: 06/12/18 07:01 Dose: 4 mg Pantoprazole Sodium (Protonix Susp) 40 mg PO DAILY [facility] Last Admin: 06/11/18 10:43 Dose: 40 mg Saliva Substitute (Mouth Kote 236 Ml) 0 ml MM Q6 PRN PRN Reason: Dry mouth Vitamin A (Vitamin A & D Oint Ud Foilpak) 1 ea TOP Q8 PRN PRN Reason: dry lips Last Admin: 05/20/18 11:10 Dose: 1 ea - Labs Labs: 06/11/18 07:33 06/11/18 07:33 PT 14.3 SECONDS (9.7-12.2) H 06/10/18 07:05 INR 1.3 06/10/18 07:05 APTT 33 SECONDS (21-34) 05/25/18 06:16 - Constitutional Appears: Non-toxic, No Acute Distress - Head Exam Head Exam: ATRAUMATIC, NORMAL INSPECTION, NORMOCEPHALIC Additional comments: NGT in place - Eye Exam Eye Exam: EOMI, Normal appearance - ENT Exam ENT Exam: Mucous Membranes Moist, Normal Exam - Neck Exam Neck Exam: Full ROM, Normal Inspection - Respiratory Exam Respiratory Exam: NORMAL BREATHING PATTERN - Cardiovascular Exam Cardiovascular Exam: REGULAR RHYTHM, +S1, +S2 - GI/Abdominal Exam GI & Abdominal Exam: Distended, Soft, Tenderness (diffuse, mild. ). absent: Guarding Additional comments: Wound vac in place over midline incision, G tube in place - Neurological Exam Neurological Exam: Alert, Awake, CN II-XII Intact, Oriented x3 - Psychiatric Exam Psychiatric exam: Normal Affect, Normal Mood - Skin Skin Exam: Dry, Intact, Normal Color, Warm Assessment and Plan - Assessment and Plan (Free Text) Assessment: 38F s/p Binta-en-Y gastric bypass (2013) w/bowel ischemic 2/2 internal hernia POD#28 s/p ex lap, reduction of internal hernia, DANNI, drainage of abdominal collections, temporary abdominal closure & EGD POD#24 s/p re-exploration, resection of ileum & Binta limb including previous gastrojejunostomy, reversal of bypass, primary anastomosis of ileum-ileum, ileum -ileum, and ileum-jejunum. Gastrostomy tube in bypassed stomach, EGD Wound vac in place over midline incision Plan: Labs Q2D Cont wound vac to suction- plan to change 9/3 Cont tube feeds Cont NGT to low intermittent suction Cont Abx Pain control PRN Encourage ambulation OOBTC Encourage IS use need to fully medically/nutritionally optimize prior to re-operation as per Dr. Mahendra Badillo, PGY-2 <Gómez Harley - Last Filed: 06/19/18 10:14> Objective - Vital Signs/Intake and Output Vital Signs (last 24 hours): Temp Pulse Resp BP Pulse Ox 98.8 F 99 H 20 99/66 L 97 06/19/18 07:00 06/19/18 07:00 06/19/18 07:00 06/19/18 07:00 06/19/18 07:00 Intake and Output: 06/19/18 06/19/18 06:59 18:59 Intake Total 1000 Output Total 615 Balance 385 - Medications Medications: Current Medications Acetaminophen (Tylenol 650mg/20.3ml Solution Ud) 975 mg GT Q8 PRN PRN Reason: Pain, Mild (1-3) Last Admin: 06/16/18 09:25 Dose: 975 mg Cholestyramine Resin (Questran) 4 gm PO BID [facility] Last Admin: 06/19/18 09:07 Dose: 4 gm Dextrose (Dextrose 50% Inj) 0 ml IV STAT PRN; Protocol PRN Reason: Hypoglycemia Protocol Last Admin: 05/16/18 23:40 Dose: 50 ml Dextrose (Glutose 15) 0 gm PO ONCE PRN; Protocol PRN Reason: Hypoglycemia Protocol Diphenhydramine HCl (Benadryl) 25 mg IVP QPM PRN PRN Reason: Insomnia Last Admin: 06/18/18 19:30 Dose: 25 mg Enoxaparin Sodium (Lovenox) 40 mg SC DAILY [facility] Last Admin: 06/19/18 09:08 Dose: 40 mg Ergocalciferol (Drisdol 50,000 Intl Units Cap) 1 cap PO Q7D [facility] Stop: 07/20/18 10:31 Last Admin: 06/15/18 10:40 Dose: 1 cap Escitalopram Oxalate (Lexapro) 10 mg GT DAILY [facility] Last Admin: 06/19/18 09:07 Dose: 10 mg Glucagon (Glucagen Diagnostic Kit) 0 mg IM STAT PRN; Protocol PRN Reason: Hypoglycemia Protocol Hydrocortisone (Cortizone 1% Cream) 0 gm TOP TID PRN PRN Reason: Rash Hydromorphone HCl (Dilaudid) 1.5 mg IVP Q3 PRN PRN Reason: Pain, SEVERE (8-10) Last Admin: 06/19/18 07:50 Dose: 1.5 mg Vancomycin HCl 1.5 gm/ Sodium (Chloride) 500 mls @ 333.333 mls/hr IVPB Q12H [facility]N PRN Reason: Protocol Last Admin: 06/19/18 00:18 Dose: 333.333 mls/hr Insulin Human Regular (Novolin R) 0 unit SC Q6 [facility]N PRN Reason: Protocol Last Admin: 06/19/18 06:20 Dose: Not Given Ipratropium [place] (Atrovent) 0.5 mg IH RQ6 [facility] Last Admin: 06/19/18 08:35 Dose: 0.5 mg Lactobacillus Acidophilus (Bacid Acidophilus) 1 cap PEG BID [facility] Last Admin: 06/19/18 09:07 Dose: 1 cap Loperamide HCl (Imodium) 1 mg PO Q2H PRN PRN Reason: Diarrhea Last Admin: 06/18/18 10:03 Dose: 1 mg Lorazepam (Ativan) 1 mg IVP BID [facility] Last Admin: 06/19/18 09:08 Dose: 1 mg Metoprolol Tartrate (Lopressor) 5 mg IVP Q6H [facility] Last Admin: 06/19/18 09:26 Dose: Not Given Nicotine (Nicoderm Cq) 1 patch TD DAILY [facility] Last Admin: 06/19/18 09:07 Dose: 1 patch Ondansetron HCl (Zofran Inj) 4 mg IVP Q6H PRN PRN Reason: Nausea/Vomiting Last Admin: 06/18/18 11:50 Dose: 4 mg Pantoprazole Sodium (Protonix Susp) 40 mg PO Q24H [facility] Last Admin: 06/19/18 09:08 Dose: 40 mg Saliva Substitute (Mouth Kote 236 Ml) 0 ml MM Q6 PRN PRN Reason: Dry mouth Vitamin A (Vitamin A & D Oint Ud Foilpak) 1 ea TOP Q8 PRN PRN Reason: dry lips Last Admin: 05/20/18 11:10 Dose: 1 ea Vitamin E (Vitamin E 400 Units Cap) 400 intlu GT DAILY [facility] Last Admin: 06/19/18 09:07 Dose: 400 intlu - Labs Labs: 06/19/18 07:06 06/19/18 07:06 PT 14.3 SECONDS (9.7-12.2) H 06/10/18 07:05 INR 1.3 06/10/18 07:05 APTT 33 SECONDS (21-34) 05/25/18 06:16 Attending/Attestation - Attestation I have personally seen and examined this patient.: Yes I have fully participated in the care of the patient.: Yes I have reviewed all pertinent clinical information, including history, physical exam and plan: Yes Notes (Text): Pt was seen and examined at bedside Agree with above note and assessment Pt is same clinically OOB to walk c.w current mx Re-consult Dr. Mccray Plan d.w pt in detail Risk and benefit explained in detail.
[2018-06-12] MEDS: Loperamide Hydrochloride 1 mg/5 ml Cup PO PRN (10:11)
[2018-06-12] MEDS: Nystatin 100,000 Units/gm Cream(15 gm) TOP SCH ×3 (10:11→19:48)
[2018-06-12] MEDS: Lactobacillus Acidophilus 500 MU Cap PEG SCH ×2 (10:12→19:34)
[2018-06-12] MEDS: Cholestyramine 4 gm/Pkt UD PO SCH ×2 (10:12→19:49)
[2018-06-12] MEDS: Pantoprazole 40 mg Susp UD PO SCH (10:12)
[2018-06-12] MEDS: Enoxaparin 40 mg Syringe SC SCH (10:12)
[2018-06-12] MEDS: DiphenhydrAMINE 50 mg/ml Inj IVP PRN (22:16)
[2018-06-13] MEDS: (Novolin R) Insulin Human Regular 100 units/ml vial SC SCH ×4 (00:27→17:41)
[2018-06-13] MEDS: Ciprofloxacin 400mg/200ml D5W 400 MG/200 ML BAG IVPB SCH ×2 (01:36→13:31)
[2018-06-13] MEDS: Ipratropium 0.02% Inhal Soln (0.5 mg/2.5 ml) UD IH SCH ×4 (02:18→19:16)
[2018-06-13] MEDS: metroNIDAZOLE IV 500 mg/100 ml 500 MG/100 ML BAG IVPB SCH ×3 (04:43→19:34)
[2018-06-13] MEDS: Metoprolol 1 mg/ml Inj IVP SCH ×4 (04:43→21:59)
--- NOTE | 2018-06-13 05:38 | CP.PCM.PN ---
Subjective - Date & Time of Evaluation Date of Evaluation: 06/13/18 Time of Evaluation: 05:35 - Subjective Subjective: PGY2 Medicine Note for Dr. Jose Denise Patient seen and examined this morning at bedside. No acute events overnight. Patient is still vomiting, when her NG tube becomes clogged. Her abdominal pain is improving as well as her diarrhea. She experienced 2 episodes of diarrhea. Patient has no other complaints at this time. Denies fevers, chills, chest pian , shortness of breath, numbness or tingling. Objective - Vital Signs/Intake and Output Vital Signs (last 24 hours): Temp Pulse Resp BP Pulse Ox 98.8 F 103 H 20 103/65 98 06/12/18 23:05 06/13/18 01:00 06/12/18 23:05 06/12/18 23:05 06/12/18 23:05 - Medications Medications: Current Medications Acetaminophen (Tylenol 650mg/20.3ml Solution Ud) 975 mg GT Q8 [facility] Last Admin: 06/12/18 22:15 Dose: 975 mg Cholestyramine Resin (Questran) 4 gm PO BID [facility] Last Admin: 06/12/18 19:49 Dose: 4 gm Dextrose (Dextrose 50% Inj) 0 ml IV STAT PRN; Protocol PRN Reason: Hypoglycemia Protocol Last Admin: 05/16/18 23:40 Dose: 50 ml Dextrose (Glutose 15) 0 gm PO ONCE PRN; Protocol PRN Reason: Hypoglycemia Protocol Diphenhydramine HCl (Benadryl) 25 mg IVP HS PRN PRN Reason: Insomnia Last Admin: 06/12/18 22:16 Dose: 25 mg Enoxaparin Sodium (Lovenox) 40 mg SC DAILY [facility] Last Admin: 06/12/18 10:12 Dose: 40 mg Ergocalciferol (Drisdol 50,000 Intl Units Cap) 1 cap PO Q7D [facility] Stop: 07/20/18 10:31 Last Admin: 06/08/18 10:55 Dose: 1 cap Escitalopram Oxalate (Lexapro) 10 mg GT DAILY [facility] Last Admin: 06/12/18 10:11 Dose: 10 mg Glucagon (Glucagen Diagnostic Kit) 0 mg IM STAT PRN; Protocol PRN Reason: Hypoglycemia Protocol Hydrocortisone (Cortizone 1% Cream) 0 gm TOP TID PRN PRN Reason: Rash Hydromorphone HCl (Dilaudid) 1.5 mg IVP Q3 PRN PRN Reason: Pain, SEVERE (8-10) Last Admin: 06/13/18 04:42 Dose: 1.5 mg Metronidazole (Flagyl) 500 mg in 100 mls @ 100 mls/hr IVPB Q8H [facility] PRN Reason: Protocol Last Admin: 06/13/18 04:43 Dose: 100 mls/hr Ciprofloxacin (Cipro 400mg/200ml Dsw) 400 mg in 200 mls @ 133 mls/hr IVPB Q12H [facility]N PRN Reason: Protocol Last Admin: 06/13/18 01:36 Dose: 133 mls/hr Insulin Human Regular (Novolin R) 0 unit SC Q6 [facility] PRN Reason: Protocol Last Admin: 06/13/18 00:27 Dose: Not Given Ipratropium [place] (Atrovent) 0.5 mg IH RQ6 [facility] Last Admin: 06/13/18 02:18 Dose: Not Given Lactobacillus Acidophilus (Bacid Acidophilus) 1 cap PEG BID [facility] Last Admin: 06/12/18 19:34 Dose: 1 cap Loperamide HCl (Imodium) 1 mg PO Q2H PRN PRN Reason: Diarrhea Last Admin: 06/12/18 10:11 Dose: 1 mg Lorazepam (Ativan) 1 mg IVP BID [facility] Last Admin: 06/12/18 17:51 Dose: 1 mg Metoprolol Tartrate (Lopressor) 5 mg IVP Q6H [facility] Last Admin: 06/13/18 04:43 Dose: 5 mg Nicotine (Nicoderm Cq) 1 patch TD DAILY [facility] Last Admin: 06/12/18 10:12 Dose: 1 patch Nystatin (Mycostatin Cream) 0 ea TOP TID [facility] Last Admin: 06/12/18 19:48 Dose: 1 applic Ondansetron HCl (Zofran Inj) 4 mg IVP Q6H PRN PRN Reason: Nausea/Vomiting Last Admin: 06/13/18 04:51 Dose: 4 mg Pantoprazole Sodium (Protonix Susp) 40 mg PO DAILY [facility] Last Admin: 06/12/18 10:12 Dose: 40 mg Saliva Substitute (Mouth Kote 236 Ml) 0 ml MM Q6 PRN PRN Reason: Dry mouth Vitamin A (Vitamin A & D Oint Ud Foilpak) 1 ea TOP Q8 PRN PRN Reason: dry lips Last Admin: 05/20/18 11:10 Dose: 1 ea Vitamin E (Vitamin E 400 Units Cap) 400 intlu GT DAILY [facility] - Labs Labs: 06/11/18 07:33 06/11/18 07:33 PT 14.3 SECONDS (9.7-12.2) H 06/10/18 07:05 INR 1.3 06/10/18 07:05 APTT 33 SECONDS (21-34) 05/25/18 06:16 - Additional Findings Additional findings: - Constitutional Appears: No Acute Distress, Chronically Ill - Head Exam Head Exam: ATRAUMATIC, NORMOCEPHALIC - Eye Exam Eye Exam: EOMI, Normal appearance - ENT Exam ENT Exam: Mucous Membranes Moist - Respiratory Exam Respiratory Exam: Clear to Ausculation Bilateral, NORMAL BREATHING PATTERN. absent: Rales, Rhonchi, Wheezes - Cardiovascular Exam Cardiovascular Exam: REGULAR RHYTHM, +S1, +S2. absent: Murmur - GI/Abdominal Exam GI & Abdominal Exam: Soft, Normal Bowel Sounds. absent: Tenderness Additional comments: wound vac in place, not leaking, no surrounding erythema, edema. 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 Harley (surgery) on the case * wound vac to continuous suction * Following Bariatric surgeon (Dr. Mccray) recs---Will plan for exchange of ojeda G-tube for a larger size Gtube preferably at least 24Fr in size with IR. current recs no [facility] operation until 5 weeks after 05/16 surgery * Current drainage from mildine incision possibly d/t leak of tube feed contents from around gastrostomy tube vs fistula--wound vac in place Cultures: * Peritoneal Fluid (05/14/18): Pseudomonas Aeruginosa sensitive to Meropenem * Wound Culture (05/23/18): Yudith albicans * Blood culture (05/15/18, 05/22/18): no growth * Urine culture (05/22/18): no growth * Incision site 05/31: Enterococcus faecalis, Acinetobacter baumannii * repeat wound culture during next wound vac change per ID Antibiotics - Continue Cipro 400 mg IV q12hrs (started 06/02) - Continue Flagyl 500mg IVPB Q8H (active since 05/15/18) - Continue Nystatin cream TID for G-tube site (Yudith) - Discontinued Meropenem 1 gm IVPB Q8H (active since 05/15/18-05/27/18) Measure vitamin levels and replace as needed - Vit D <12.8- vit D 50,000 units q1wk x8 wks - B12 707, wnl - Folate 12.6, wnl - Vit A 42, wnl - Alpha Vit E 5.6, wnl Medications: - Continue Tylenol 975 mg liq q8hrs - Continue Dilaudid 1.5 mg IV q3hrs PRN - Continue Zofran 4mg IV q6hrs PRN - PT consulted- working with patient, current rec TCU following discharge Tachycardia, persistent (110s-130s)- possibly etiologies include pain, infection , anxiety - She is being treated for Left G Tube fluid infection. - Continue Ativan PRN. - Continue Dilaudid on board to be used PRN. - Continue Metoprolol tartrate 5 mg IV q6hrs with holding parameters (SBP <100, HR <60) Diarrhea, acute, improving- suspect secondary to PO intake by pt - C. Diff (05/22, 05/24, 05/28): negative - Stool O&P (05/25/18): negative - Stool leukocytes (05/25/18): negative - per ID continue Flagyl due to leak around wound vac Anxiety - [employer]ch[employer] consulted- pt initially refused but then accepted - Psychiatry consulted (Dr. Reyez)- managing Ativan - Continue Ativan 1 mg IV BID - Continue Lexapro 10 mg GT daily (started 05/31) Anemia, acute, stable, pt denies blood in stool - Patient received a total of 2 PRBC (on 05/16) and 4 FFP (on 05/15 to 05/16) - Iron 16, TIBC 205, % sat 4.7, ferritin 75.3 - Monitor CBC Q2D Thombocytosis, improving (504)- suspect reactive to pain, surgery - Resolved - Monitor CBC Q2D Diabetes Mellitus, Type 2, controlled - From prior note: Admittedly non-compliant, has not taken Januvia for one year - Accuchecks q6hrs - Hypoglycemic protocol - ISS regular - HbA1c 5.8 - History of gastric bypass surgery Hypercholesterolemia- untreated - LDL 38, HDL 14, Chol 104, TG 226 - History of gastric bypass surgery History of Hypertension, controlled- since gastric bypass has not taken meds - Metoprolol 5 mg IV q6hrs History of Obesity, resolved - s/p gastric bypass surgery in 2013 History of Asthma - Chronic - Atrovent q6hrs Nicotine use disorder - Chronic - From prior note: 1ppd x 20 yrs, 1/2 ppd x 3 yrs - Continue Nicoderm 1 patch TD QD Hypokalemia - Resolved - 3.6 WNL on 06/10 - 3.5 on 06/09, replenished w/ 20 meq KCl IVP, f/u w/ Q2D labs Hypomagnesemia - Resolved - 1.6 on 06/10 repleanished w/ 1gm in AM, will f/u w/ Q2D labs - 1.5 on 06/09, replenished w/ 1gm in AM, will f/u w/ Q2D labs Leukocytosis, trending downwards - likely secondary to to ischemic bowel secondary to small bowel obstruction and surgeries - Resolved - Cultures: Peritoneal Fluid (05/14/18): Pseudomonas Aeruginosa sensitive to Meropenem Wound Culture (05/23/18): Yudith albicans Blood culture (05/15/18, 05/22/18): no growth Urine culture (05/22/18): no growth - Wound Cx from incision site 05/31: Enterococcus faecalis, Acinetobacter baumannii, on ciprofloxacin 400 mg (started 06/02) - Monitor CBC Q2D Prophylaxis - Hydrocortisone 1% Cream topical TID for Right Upper Inner Arm macular rash- improved - Vitamin A&D topical q8hrs PRN for dry lips - Saliva substitute q6hrs PRN for dry mouth - IVF: not indicated - VTE ppx: Lovenox 40 mg SC daily, SCDs; encourage ambulation - GI ppx: Protonix 40 mg IV BID, Florastor BID - Code status: full code Will discuss with Dr. Jose Gregory Lavon PGY2
[2018-06-13] MEDS: Acetaminophen 650mg/20.3ml solution UD GT SCH ×4 (06:27→22:07)
[2018-06-13 06:55] LABS: BASO # 0.1 K/uL (0.0-0.2); BASO % 0.5 % (0.0-2.0); EOS # 0.2 K/uL (0.0-0.7); HEMOGLOBIN 9.1 g/dL (11.0-16.0); LYMPH % 20.8 % (20.0-40.0); MEAN CELL VOLUME 86.2 fL (81.0-99.0); MEAN CORPUSCULAR HEMOGLOBIN 28.2 pg (27.0-31.0); MEAN CORPUSCULAR HGB CONC 32.7 g/dL (33.0-37.0); MEAN PLATELET VOLUME 7.3 fL (7.2-11.7); MONO # 0.9 K/uL (0.0-0.8); MONO % 8.9 % (0.0-10.0); NEUT # 6.6 K/uL (1.8-7.0); NEUT % 67.8 % (50.0-75.0); NRBC % 0.1 % (0.0-2.0); RBC 3.23 Mil/uL (3.80-5.20); RED CELL DISTRIBUTION WIDTH 17.9 % (11.5-14.5); WHITE BLOOD COUNT 9.8 K/uL (4.8-10.8)
[2018-06-13] MEDS ORDERED: HYDROmorphone 0.5 mg/0.5 ml ISec IVP ONE (07:00)
[2018-06-13 07:30] LABS: ALB/GLOB RATIO 0.9 (1.0-2.1); ALBUMIN 2.8 g/dL (3.5-5.0); ALT/SGPT 19 U/L (9-52); AST/SGOT 28 U/L (14-36); BLOOD UREA NITROGEN 7 mg/dL (7-17); CALCIUM 8.2 mg/dl (8.6-10.4); GFR NON-AFRICAN AMERICAN > 60
--- NOTE | 2018-06-13 08:29 | CP.PCM.PN ---
<Barbara Badillo - Last Filed: 06/13/18 08:29> Subjective - Date & Time of Evaluation Date of Evaluation: 06/13/18 Time of Evaluation: 08:26 - Subjective Subjective: General surgery progress note for Dr. Harley-Barbara Badillo, PGY-2 Pt S & E at bedside at 0650 Pt reports continued nausea, emesis around NGT. Ab pain controlled. Denies F & C. On Tube feeds at 30cc/hr. NGT w/250/12hrs wound vac w/300cc since 3pm yesterday Objective - Vital Signs/Intake and Output Vital Signs (last 24 hours): Temp Pulse Resp BP Pulse Ox 98.9 F 100 H 18 114/78 98 06/13/18 07:00 06/13/18 07:00 06/13/18 07:00 06/13/18 07:00 06/13/18 07:00 - Medications Medications: Current Medications Acetaminophen (Tylenol 650mg/20.3ml Solution Ud) 975 mg GT Q8 [facility] Last Admin: 06/13/18 06:27 Dose: 975 mg Cholestyramine Resin (Questran) 4 gm PO BID [facility] Last Admin: 06/12/18 19:49 Dose: 4 gm Dextrose (Dextrose 50% Inj) 0 ml IV STAT PRN; Protocol PRN Reason: Hypoglycemia Protocol Last Admin: 05/16/18 23:40 Dose: 50 ml Dextrose (Glutose 15) 0 gm PO ONCE PRN; Protocol PRN Reason: Hypoglycemia Protocol Diphenhydramine HCl (Benadryl) 25 mg IVP HS PRN PRN Reason: Insomnia Last Admin: 06/12/18 22:16 Dose: 25 mg Enoxaparin Sodium (Lovenox) 40 mg SC DAILY [facility] Last Admin: 06/12/18 10:12 Dose: 40 mg Ergocalciferol (Drisdol 50,000 Intl Units Cap) 1 cap PO Q7D [facility] Stop: 07/20/18 10:31 Last Admin: 06/08/18 10:55 Dose: 1 cap Escitalopram Oxalate (Lexapro) 10 mg GT DAILY [facility] Last Admin: 06/12/18 10:11 Dose: 10 mg Glucagon (Glucagen Diagnostic Kit) 0 mg IM STAT PRN; Protocol PRN Reason: Hypoglycemia Protocol Hydrocortisone (Cortizone 1% Cream) 0 gm TOP TID PRN PRN Reason: Rash Hydromorphone HCl (Dilaudid) 1.5 mg IVP Q3 PRN PRN Reason: Pain, SEVERE (8-10) Last Admin: 06/13/18 07:41 Dose: 1.5 mg Metronidazole (Flagyl) 500 mg in 100 mls @ 100 mls/hr IVPB Q8H [facility] PRN Reason: Protocol Last Admin: 06/13/18 04:43 Dose: 100 mls/hr Ciprofloxacin (Cipro 400mg/200ml Dsw) 400 mg in 200 mls @ 133 mls/hr IVPB Q12H [facility] PRN Reason: Protocol Last Admin: 06/13/18 01:36 Dose: 133 mls/hr Insulin Human Regular (Novolin R) 0 unit SC Q6 [facility] PRN Reason: Protocol Last Admin: 06/13/18 07:30 Dose: Not Given Ipratropium [place] (Atrovent) 0.5 mg IH RQ6 [facility] Last Admin: 06/13/18 07:47 Dose: 0.5 mg Lactobacillus Acidophilus (Bacid Acidophilus) 1 cap PEG BID [facility] Last Admin: 06/12/18 19:34 Dose: 1 cap Loperamide HCl (Imodium) 1 mg PO Q2H PRN PRN Reason: Diarrhea Last Admin: 06/12/18 10:11 Dose: 1 mg Lorazepam (Ativan) 1 mg IVP BID [facility] Last Admin: 06/12/18 17:51 Dose: 1 mg Metoprolol Tartrate (Lopressor) 5 mg IVP Q6H [facility] Last Admin: 06/13/18 04:43 Dose: 5 mg Nicotine (Nicoderm Cq) 1 patch TD DAILY [facility] Last Admin: 06/12/18 10:12 Dose: 1 patch Nystatin (Mycostatin Cream) 0 ea TOP TID [facility] Last Admin: 06/12/18 19:48 Dose: 1 applic Ondansetron HCl (Zofran Inj) 4 mg IVP Q6H PRN PRN Reason: Nausea/Vomiting Last Admin: 06/13/18 04:51 Dose: 4 mg Pantoprazole Sodium (Protonix Susp) 40 mg PO DAILY [facility] Last Admin: 06/12/18 10:12 Dose: 40 mg Saliva Substitute (Mouth Kote 236 Ml) 0 ml MM Q6 PRN PRN Reason: Dry mouth Vitamin A (Vitamin A & D Oint Ud Foilpak) 1 ea TOP Q8 PRN PRN Reason: dry lips Last Admin: 05/20/18 11:10 Dose: 1 ea Vitamin E (Vitamin E 400 Units Cap) 400 intlu GT DAILY [facility] - Labs Labs: 06/13/18 06:34 06/13/18 06:34 PT 14.3 SECONDS (9.7-12.2) H 06/10/18 07:05 INR 1.3 06/10/18 07:05 APTT 33 SECONDS (21-34) 05/25/18 06:16 - Constitutional Appears: Non-toxic, No Acute Distress - Head Exam Head Exam: ATRAUMATIC, NORMAL INSPECTION, NORMOCEPHALIC Additional comments: NGT in place - Eye Exam Eye Exam: EOMI, Normal appearance - ENT Exam ENT Exam: Mucous Membranes Moist, Normal Exam - Neck Exam Neck Exam: Full ROM, Normal Inspection - Respiratory Exam Respiratory Exam: NORMAL BREATHING PATTERN - Cardiovascular Exam Cardiovascular Exam: REGULAR RHYTHM, +S1, +S2 - GI/Abdominal Exam GI & Abdominal Exam: Soft, Tenderness (mild, diffuse). absent: Distended, Firm , Guarding, Rigid Additional comments: wound vac replaced today, drainage noted from umbilicus- sent for cx, able to express drainage with pressure to superior aspect of incision, drainage smells sweet, is yellow - Extremities Exam Extremities Exam: Normal Inspection - Neurological Exam Neurological Exam: Alert, Awake, CN II-XII Intact, Oriented x3 - Psychiatric Exam Psychiatric exam: Normal Affect, Normal Mood - Skin Skin Exam: Dry, Normal Color, Warm Assessment and Plan - Assessment and Plan (Free Text) Assessment: 38F s/p Binta-en-Y gastric bypass (2013) w/bowel ischemic 2/2 internal hernia POD#29 s/p ex lap, reduction of internal hernia, DANNI, drainage of abdominal collections, temporary abdominal closure & EGD POD#25 s/p re-exploration, resection of ileum & Binta limb including previous gastrojejunostomy, reversal of bypass, primary anastomosis of ileum-ileum, ileum -ileum, and ileum-jejunum. Gastrostomy tube in bypassed stomach, EGD Wound vac in place over midline incision Plan: Labs ok today Cont wound vac to suction FU wound cx from wound vac site Wound vac changed today Monitor NGT output Cont tube feeds NGT to low intermittent suction, flush with saline & air PRN Cont Abx Pain control PRN OOBTC Encourage IS use need to fully medically/nutritionally optimize prior to re-operation as per Dr. Mahendra Badillo, PGY-2 <Gómez Harley - Last Filed: 06/19/18 10:20> Objective - Vital Signs/Intake and Output Vital Signs (last 24 hours): Temp Pulse Resp BP Pulse Ox 98.8 F 99 H 20 99/66 L 97 06/19/18 07:00 06/19/18 07:00 06/19/18 07:00 06/19/18 07:00 06/19/18 07:00 Intake and Output: 06/19/18 06/19/18 06:59 18:59 Intake Total 1000 Output Total 615 Balance 385 - Medications Medications: Current Medications Acetaminophen (Tylenol 650mg/20.3ml Solution Ud) 975 mg GT Q8 PRN PRN Reason: Pain, Mild (1-3) Last Admin: 06/16/18 09:25 Dose: 975 mg Cholestyramine Resin (Questran) 4 gm PO BID [facility] Last Admin: 06/19/18 09:07 Dose: 4 gm Dextrose (Dextrose 50% Inj) 0 ml IV STAT PRN; Protocol PRN Reason: Hypoglycemia Protocol Last Admin: 05/16/18 23:40 Dose: 50 ml Dextrose (Glutose 15) 0 gm PO ONCE PRN; Protocol PRN Reason: Hypoglycemia Protocol Diphenhydramine HCl (Benadryl) 25 mg IVP QPM PRN PRN Reason: Insomnia Last Admin: 06/18/18 19:30 Dose: 25 mg Enoxaparin Sodium (Lovenox) 40 mg SC DAILY [facility] Last Admin: 06/19/18 09:08 Dose: 40 mg Ergocalciferol (Drisdol 50,000 Intl Units Cap) 1 cap PO Q7D [facility] Stop: 07/20/18 10:31 Last Admin: 06/15/18 10:40 Dose: 1 cap Escitalopram Oxalate (Lexapro) 10 mg GT DAILY [facility] Last Admin: 06/19/18 09:07 Dose: 10 mg Glucagon (Glucagen Diagnostic Kit) 0 mg IM STAT PRN; Protocol PRN Reason: Hypoglycemia Protocol Hydrocortisone (Cortizone 1% Cream) 0 gm TOP TID PRN PRN Reason: Rash Hydromorphone HCl (Dilaudid) 1.5 mg IVP Q3 PRN PRN Reason: Pain, SEVERE (8-10) Last Admin: 06/19/18 07:50 Dose: 1.5 mg Vancomycin HCl 1.5 gm/ Sodium (Chloride) 500 mls @ 333.333 mls/hr IVPB Q12H [facility] PRN Reason: Protocol Last Admin: 06/19/18 00:18 Dose: 333.333 mls/hr Insulin Human Regular (Novolin R) 0 unit SC Q6 [facility] PRN Reason: Protocol Last Admin: 06/19/18 06:20 Dose: Not Given Ipratropium [place] (Atrovent) 0.5 mg IH RQ6 [facility] Last Admin: 06/19/18 08:35 Dose: 0.5 mg Lactobacillus Acidophilus (Bacid Acidophilus) 1 cap PEG BID [facility] Last Admin: 06/19/18 09:07 Dose: 1 cap Loperamide HCl (Imodium) 1 mg PO Q2H PRN PRN Reason: Diarrhea Last Admin: 06/18/18 10:03 Dose: 1 mg Lorazepam (Ativan) 1 mg IVP BID [facility] Last Admin: 06/19/18 09:08 Dose: 1 mg Metoprolol Tartrate (Lopressor) 5 mg IVP Q6H [facility] Last Admin: 06/19/18 09:26 Dose: Not Given Nicotine (Nicoderm Cq) 1 patch TD DAILY [facility] Last Admin: 06/19/18 09:07 Dose: 1 patch Ondansetron HCl (Zofran Inj) 4 mg IVP Q6H PRN PRN Reason: Nausea/Vomiting Last Admin: 06/18/18 11:50 Dose: 4 mg Pantoprazole Sodium (Protonix Susp) 40 mg PO Q24H [facility] Last Admin: 06/19/18 09:08 Dose: 40 mg Saliva Substitute (Mouth Kote 236 Ml) 0 ml MM Q6 PRN PRN Reason: Dry mouth Vitamin A (Vitamin A & D Oint Ud Foilpak) 1 ea TOP Q8 PRN PRN Reason: dry lips Last Admin: 05/20/18 11:10 Dose: 1 ea Vitamin E (Vitamin E 400 Units Cap) 400 intlu GT DAILY [facility] Last Admin: 06/19/18 09:07 Dose: 400 intlu - Labs Labs: 06/19/18 07:06 06/19/18 07:06 PT 14.3 SECONDS (9.7-12.2) H 06/10/18 07:05 INR 1.3 06/10/18 07:05 APTT 33 SECONDS (21-34) 05/25/18 06:16 Attending/Attestation - Attestation I have fully participated in the care of the patient.: Yes I have reviewed all pertinent clinical information, including history, physical exam and plan: Yes Notes (Text): Pt is clinically same c/w wound vac and tube feeds IV antibiotics repeat Labs in am Plan d.w pt in detail
[2018-06-13] MEDS: Loperamide Hydrochloride 1 mg/5 ml Cup PO PRN (09:29)
[2018-06-13] MEDS: Enoxaparin 40 mg Syringe SC SCH (09:29)
[2018-06-13] MEDS: Lactobacillus Acidophilus 500 MU Cap PEG SCH ×2 (09:30→17:50)
[2018-06-13] MEDS: Pantoprazole 40 mg Susp UD PO SCH ×2 (09:30)
[2018-06-13] MEDS: Cholestyramine 4 gm/Pkt UD PO SCH ×2 (09:30→17:50)
[2018-06-13] MEDS: Nystatin 100,000 Units/gm Cream(15 gm) TOP SCH ×2 (09:45→13:34)
--- NOTE | 2018-06-13 19:51 | CP.PCM.PN ---
Subjective - Date & Time of Evaluation Date of Evaluation: 06/13/18 Time of Evaluation: 14:15 - Subjective Subjective: dictated Objective - Vital Signs/Intake and Output Vital Signs (last 24 hours): Temp Pulse Resp BP Pulse Ox 98.7 F 107 H 20 108/67 97 06/13/18 15:39 06/13/18 16:00 06/13/18 15:39 06/13/18 15:39 06/13/18 15:39 Intake and Output: 06/13/18 06/14/18 18:59 06:59 Intake Total 850 Output Total 100 Balance 750 - Medications Medications: Current Medications Acetaminophen (Tylenol 650mg/20.3ml Solution Ud) 975 mg GT Q8 [facility] Last Admin: 06/13/18 13:38 Dose: 975 mg Cholestyramine Resin (Questran) 4 gm PO BID [facility] Last Admin: 06/13/18 17:50 Dose: 4 gm Dextrose (Dextrose 50% Inj) 0 ml IV STAT PRN; Protocol PRN Reason: Hypoglycemia Protocol Last Admin: 05/16/18 23:40 Dose: 50 ml Dextrose (Glutose 15) 0 gm PO ONCE PRN; Protocol PRN Reason: Hypoglycemia Protocol Diphenhydramine HCl (Benadryl) 25 mg IVP HS PRN PRN Reason: Insomnia Last Admin: 06/12/18 22:16 Dose: 25 mg Enoxaparin Sodium (Lovenox) 40 mg SC DAILY [facility] Last Admin: 06/13/18 09:29 Dose: 40 mg Ergocalciferol (Drisdol 50,000 Intl Units Cap) 1 cap PO Q7D [facility] Stop: 07/20/18 10:31 Last Admin: 06/08/18 10:55 Dose: 1 cap Escitalopram Oxalate (Lexapro) 10 mg GT DAILY [facility] Last Admin: 06/13/18 09:45 Dose: 10 mg Glucagon (Glucagen Diagnostic Kit) 0 mg IM STAT PRN; Protocol PRN Reason: Hypoglycemia Protocol Hydrocortisone (Cortizone 1% Cream) 0 gm TOP TID PRN PRN Reason: Rash Hydromorphone HCl (Dilaudid) 1.5 mg IVP Q3 PRN PRN Reason: Pain, SEVERE (8-10) Last Admin: 06/13/18 19:41 Dose: 1.5 mg Metronidazole (Flagyl) 500 mg in 100 mls @ 100 mls/hr IVPB Q8H [facility] PRN Reason: Protocol Last Admin: 06/13/18 19:34 Dose: 100 mls/hr Ciprofloxacin (Cipro 400mg/200ml Dsw) 400 mg in 200 mls @ 133 mls/hr IVPB Q12H [facility] PRN Reason: Protocol Last Admin: 06/13/18 13:31 Dose: 133 mls/hr Insulin Human Regular (Novolin R) 0 unit SC Q6 [facility] PRN Reason: Protocol Last Admin: 06/13/18 17:41 Dose: Not Given Ipratropium [place] (Atrovent) 0.5 mg IH RQ6 [facility] Last Admin: 06/13/18 19:16 Dose: 0.5 mg Lactobacillus Acidophilus (Bacid Acidophilus) 1 cap PEG BID [facility] Last Admin: 06/13/18 17:50 Dose: 1 cap Loperamide HCl (Imodium) 1 mg PO Q2H PRN PRN Reason: Diarrhea Last Admin: 06/13/18 09:29 Dose: 1 mg Lorazepam (Ativan) 1 mg IVP BID [facility] Last Admin: 06/13/18 17:50 Dose: 1 mg Metoprolol Tartrate (Lopressor) 5 mg IVP Q6H [facility] Last Admin: 06/13/18 16:34 Dose: 5 mg Nicotine (Nicoderm Cq) 1 patch TD DAILY [facility] Last Admin: 06/13/18 09:30 Dose: 1 patch Ondansetron HCl (Zofran Inj) 4 mg IVP Q6H PRN PRN Reason: Nausea/Vomiting Last Admin: 06/13/18 14:21 Dose: 4 mg Pantoprazole Sodium (Protonix Inj) 40 mg IVP Q24H [facility] Last Admin: 06/13/18 14:46 Dose: 40 mg Saliva Substitute (Mouth Kote 236 Ml) 0 ml MM Q6 PRN PRN Reason: Dry mouth Vitamin A (Vitamin A & D Oint Ud Foilpak) 1 ea TOP Q8 PRN PRN Reason: dry lips Last Admin: 05/20/18 11:10 Dose: 1 ea Vitamin E (Vitamin E 400 Units Cap) 400 intlu GT DAILY [facility] Last Admin: 06/13/18 09:30 Dose: 400 intlu - Labs Labs: 06/13/18 06:34 06/13/18 06:34 PT 14.3 SECONDS (9.7-12.2) H 06/10/18 07:05 INR 1.3 06/10/18 07:05 APTT 33 SECONDS (21-34) 05/25/18 06:16
[2018-06-13] MEDS: DiphenhydrAMINE 50 mg/ml Inj IVP PRN (22:00)
[2018-06-14] MEDS: (Novolin R) Insulin Human Regular 100 units/ml vial SC SCH ×4 (00:07→17:33)
--- NOTE | 2018-06-14 00:40 | PN ---
Copied To: Guero Rivera MD Attending MD: Guero Rivera MD DATE: 06/13/2018 SUBJECTIVE: The patient is afebrile. She said she had some vomiting. She has NG tube present, I told her not to take anything by mouth, she says she has not been doing that. PHYSICAL EXAMINATION: VITAL SIGNS: T-max is 98.7, heart rate of 109, blood pressure 108/67, respirations are 18 to 20. GENERAL: She is not in pain. HEENT: Head is atraumatic. NECK: Supple. LUNGS: Clear. HEART: S1, S2 are regular. ABDOMEN: Has a wound VAC present and a J-tube present. EXTREMITIES: Have no edema. LABORATORY DATA: Labs are noted. Labs show white count is 9.8. We are waiting for the wound culture that was ordered. Her BUN is 7, creatinine 0.5. The patient's wound culture is pending. ASSESSMENT AND PLAN: For now, we renewed both Cipro and Flagyl that she is on and the culture is pending at this time, and we will follow and probably at that point she can come off the antibiotics and she is waiting for it. She is waiting for the other surgery which may take place in few weeks. We will follow. Guero Rivera MD
[2018-06-14] MEDS: Ipratropium 0.02% Inhal Soln (0.5 mg/2.5 ml) UD IH SCH ×4 (01:11→21:01)
[2018-06-14] MEDS: Ciprofloxacin 400mg/200ml D5W 400 MG/200 ML BAG IVPB SCH ×2 (01:33→13:32)
[2018-06-14] MEDS: metroNIDAZOLE IV 500 mg/100 ml 500 MG/100 ML BAG IVPB SCH ×3 (04:24→19:53)
[2018-06-14] MEDS: Metoprolol 1 mg/ml Inj IVP SCH ×4 (04:24→22:57)
[2018-06-14] MEDS: Acetaminophen 650mg/20.3ml solution UD GT SCH (05:00)
--- NOTE | 2018-06-14 08:28 | CP.PCM.PN ---
<Barbara Badillo - Last Filed: 06/15/18 22:49> Subjective - Date & Time of Evaluation Date of Evaluation: 06/14/18 Time of Evaluation: 08:26 - Subjective Subjective: General surgery progress note for Dr. Harley-Barbara Badillo, PGY-2 Pt S & E at bedside at 0620 Pt reports nausea improved, not having as much emesis. Ab pain controlled. Notes that she is having drainage of superior aspect of midline incision. Denies F & C. Tube feeds at 30cc/hr NGT -650/24H Wound vac - 320/24H since 3pm yesterday Objective - Vital Signs/Intake and Output Vital Signs (last 24 hours): Temp Pulse Resp BP Pulse Ox 98.3 F 105 H 20 116/77 96 06/14/18 07:00 06/14/18 07:00 06/14/18 07:00 06/14/18 07:00 06/14/18 07:00 Intake and Output: 06/14/18 06/14/18 06:59 18:59 Intake Total 400 Output Total 970 Balance -570 - Medications Medications: Current Medications Acetaminophen (Tylenol 650mg/20.3ml Solution Ud) 975 mg GT Q8 [facility] Last Admin: 06/14/18 05:00 Dose: Not Given Cholestyramine Resin (Questran) 4 gm PO BID [facility] Last Admin: 06/13/18 17:50 Dose: 4 gm Dextrose (Dextrose 50% Inj) 0 ml IV STAT PRN; Protocol PRN Reason: Hypoglycemia Protocol Last Admin: 05/16/18 23:40 Dose: 50 ml Dextrose (Glutose 15) 0 gm PO ONCE PRN; Protocol PRN Reason: Hypoglycemia Protocol Diphenhydramine HCl (Benadryl) 25 mg IVP HS PRN PRN Reason: Insomnia Last Admin: 06/13/18 22:00 Dose: 25 mg Enoxaparin Sodium (Lovenox) 40 mg SC DAILY [facility] Last Admin: 06/13/18 09:29 Dose: 40 mg Ergocalciferol (Drisdol 50,000 Intl Units Cap) 1 cap PO Q7D [facility] Stop: 07/20/18 10:31 Last Admin: 06/08/18 10:55 Dose: 1 cap Escitalopram Oxalate (Lexapro) 10 mg GT DAILY [facility] Last Admin: 06/13/18 09:45 Dose: 10 mg Glucagon (Glucagen Diagnostic Kit) 0 mg IM STAT PRN; Protocol PRN Reason: Hypoglycemia Protocol Hydrocortisone (Cortizone 1% Cream) 0 gm TOP TID PRN PRN Reason: Rash Hydromorphone HCl (Dilaudid) 1.5 mg IVP Q3 PRN PRN Reason: Pain, SEVERE (8-10) Last Admin: 06/14/18 07:41 Dose: 1.5 mg Metronidazole (Flagyl) 500 mg in 100 mls @ 100 mls/hr IVPB Q8H [facility] PRN Reason: Protocol Last Admin: 06/14/18 04:24 Dose: 100 mls/hr Ciprofloxacin (Cipro 400mg/200ml Dsw) 400 mg in 200 mls @ 133 mls/hr IVPB Q12H [facility] PRN Reason: Protocol Last Admin: 06/14/18 01:33 Dose: 133 mls/hr Insulin Human Regular (Novolin R) 0 unit SC Q6 [facility] PRN Reason: Protocol Last Admin: 06/14/18 06:19 Dose: Not Given Ipratropium [place] (Atrovent) 0.5 mg IH RQ6 [facility] Last Admin: 06/14/18 07:14 Dose: Not Given Lactobacillus Acidophilus (Bacid Acidophilus) 1 cap PEG BID [facility] Last Admin: 06/13/18 17:50 Dose: 1 cap Loperamide HCl (Imodium) 1 mg PO Q2H PRN PRN Reason: Diarrhea Last Admin: 06/13/18 09:29 Dose: 1 mg Lorazepam (Ativan) 1 mg IVP BID [facility] Last Admin: 06/13/18 17:50 Dose: 1 mg Metoprolol Tartrate (Lopressor) 5 mg IVP Q6H [facility] Last Admin: 06/14/18 04:24 Dose: 5 mg Nicotine (Nicoderm Cq) 1 patch TD DAILY [facility] Last Admin: 06/13/18 09:30 Dose: 1 patch Ondansetron HCl (Zofran Inj) 4 mg IVP Q6H PRN PRN Reason: Nausea/Vomiting Last Admin: 06/14/18 06:39 Dose: 4 mg Pantoprazole Sodium (Protonix Inj) 40 mg IVP Q24H [facility] Last Admin: 06/13/18 14:46 Dose: 40 mg Saliva Substitute (Mouth Kote 236 Ml) 0 ml MM Q6 PRN PRN Reason: Dry mouth Vitamin A (Vitamin A & D Oint Ud Foilpak) 1 ea TOP Q8 PRN PRN Reason: dry lips Last Admin: 05/20/18 11:10 Dose: 1 ea Vitamin E (Vitamin E 400 Units Cap) 400 intlu GT DAILY [facility] Last Admin: 06/13/18 09:30 Dose: 400 intlu - Labs Labs: 06/13/18 06:34 06/13/18 06:34 PT 14.3 SECONDS (9.7-12.2) H 06/10/18 07:05 INR 1.3 06/10/18 07:05 APTT 33 SECONDS (21-34) 05/25/18 06:16 - Constitutional Appears: Non-toxic, No Acute Distress - Head Exam Head Exam: ATRAUMATIC, NORMAL INSPECTION, NORMOCEPHALIC - Eye Exam Eye Exam: EOMI, Normal appearance - ENT Exam ENT Exam: Mucous Membranes Moist, Normal Exam - Neck Exam Neck Exam: Full ROM, Normal Inspection - Respiratory Exam Respiratory Exam: NORMAL BREATHING PATTERN - Cardiovascular Exam Cardiovascular Exam: REGULAR RHYTHM, +S1, +S2 - GI/Abdominal Exam GI & Abdominal Exam: Soft. absent: Distended, Firm, Guarding, Tenderness, Hernia Additional comments: G tube in place Wound vac in place over midline incision, superior aspect with yellow discharge , added sponge and connected to remaining wound vac. - Neurological Exam Neurological Exam: Alert, Awake, CN II-XII Intact, Oriented x3 - Psychiatric Exam Psychiatric exam: Normal Affect, Normal Mood - Skin Skin Exam: Normal Color, Warm Assessment and Plan - Assessment and Plan (Free Text) Assessment: 38F s/p Binta-en-Y gastric bypass (2013) w/bowel ischemic 2/2 internal hernia POD#30 s/p ex lap, reduction of internal hernia, DANNI, drainage of abdominal collections, temporary abdominal closure & EGD POD#26 s/p re-exploration, resection of ileum & Binta limb including previous gastrojejunostomy, reversal of bypass, primary anastomosis of ileum-ileum, ileum -ileum, and ileum-jejunum. 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 Mahendra Badillo, PGY-2 <Gómez Harley - Last Filed: 06/19/18 10:38> Objective - Vital Signs/Intake and Output Vital Signs (last 24 hours): Temp Pulse Resp BP Pulse Ox 98.8 F 99 H 20 99/66 L 97 06/19/18 07:00 06/19/18 07:00 06/19/18 07:00 06/19/18 07:00 06/19/18 07:00 Intake and Output: 06/19/18 06/19/18 06:59 18:59 Intake Total 1000 Output Total 615 Balance 385 - Medications Medications: Current Medications Acetaminophen (Tylenol 650mg/20.3ml Solution Ud) 975 mg GT Q8 PRN PRN Reason: Pain, Mild (1-3) Last Admin: 06/16/18 09:25 Dose: 975 mg Bacitracin (Bacitracin) 2 ea TOP BID [facility] Stop: 06/19/18 18:01 Cholestyramine Resin (Questran) 4 gm PO BID [facility] Last Admin: 06/19/18 09:07 Dose: 4 gm Dextrose (Dextrose 50% Inj) 0 ml IV STAT PRN; Protocol PRN Reason: Hypoglycemia Protocol Last Admin: 05/16/18 23:40 Dose: 50 ml Dextrose (Glutose 15) 0 gm PO ONCE PRN; Protocol PRN Reason: Hypoglycemia Protocol Diphenhydramine HCl (Benadryl) 25 mg IVP QPM PRN PRN Reason: Insomnia Last Admin: 06/18/18 19:30 Dose: 25 mg Enoxaparin Sodium (Lovenox) 40 mg SC DAILY [facility] Last Admin: 06/19/18 09:08 Dose: 40 mg Ergocalciferol (Drisdol 50,000 Intl Units Cap) 1 cap PO Q7D [facility] Stop: 07/20/18 10:31 Last Admin: 06/15/18 10:40 Dose: 1 cap Escitalopram Oxalate (Lexapro) 10 mg GT DAILY [facility] Last Admin: 06/19/18 09:07 Dose: 10 mg Glucagon (Glucagen Diagnostic Kit) 0 mg IM STAT PRN; Protocol PRN Reason: Hypoglycemia Protocol Hydrocortisone (Cortizone 1% Cream) 0 gm TOP TID PRN PRN Reason: Rash Hydromorphone HCl (Dilaudid) 1.5 mg IVP Q3 PRN PRN Reason: Pain, SEVERE (8-10) Last Admin: 06/19/18 07:50 Dose: 1.5 mg Vancomycin HCl 1.5 gm/ Sodium (Chloride) 500 mls @ 333.333 mls/hr IVPB Q12H [facility] PRN Reason: Protocol Last Admin: 06/19/18 00:18 Dose: 333.333 mls/hr Insulin Human Regular (Novolin R) 0 unit SC Q6 [facility] PRN Reason: Protocol Last Admin: 06/19/18 06:20 Dose: Not Given Ipratropium [place] (Atrovent) 0.5 mg IH RQ6 [facility] Last Admin: 06/19/18 08:35 Dose: 0.5 mg Lactobacillus Acidophilus (Bacid Acidophilus) 1 cap PEG BID [facility] Last Admin: 06/19/18 09:07 Dose: 1 cap Loperamide HCl (Imodium) 1 mg PO Q2H PRN PRN Reason: Diarrhea Last Admin: 06/18/18 10:03 Dose: 1 mg Lorazepam (Ativan) 1 mg IVP BID [facility] Last Admin: 06/19/18 09:08 Dose: 1 mg Metoprolol Tartrate (Lopressor) 5 mg IVP Q6H [facility] Last Admin: 06/19/18 09:26 Dose: Not Given Nicotine (Nicoderm Cq) 1 patch TD DAILY [facility] Last Admin: 06/19/18 09:07 Dose: 1 patch Ondansetron HCl (Zofran Inj) 4 mg IVP Q6H PRN PRN Reason: Nausea/Vomiting Last Admin: 06/18/18 11:50 Dose: 4 mg Pantoprazole Sodium (Protonix Susp) 40 mg PO Q24H [facility] Last Admin: 06/19/18 09:08 Dose: 40 mg Saliva Substitute (Mouth Kote 236 Ml) 0 ml MM Q6 PRN PRN Reason: Dry mouth Vitamin A (Vitamin A & D Oint Ud Foilpak) 1 ea TOP Q8 PRN PRN Reason: dry lips Last Admin: 05/20/18 11:10 Dose: 1 ea Vitamin E (Vitamin E 400 Units Cap) 400 intlu GT DAILY KATELYN Last Admin: 06/19/18 09:07 Dose: 400 intlu - Labs Labs: 06/19/18 07:06 06/19/18 07:06 PT 14.3 SECONDS (9.7-12.2) H 06/10/18 07:05 INR 1.3 06/10/18 07:05 APTT 33 SECONDS (21-34) 05/25/18 06:16 Attending/Attestation - Attestation I have personally seen and examined this patient.: Yes I have fully participated in the care of the patient.: Yes I have reviewed all pertinent clinical information, including history, physical exam and plan: Yes Notes (Text): Pt was seen and examined at bedside Agree with above note and assessment Pt is same clinically C.w Tube feeds OOB to walk Plan d.w pt in detail
[2018-06-14] MEDS: Enoxaparin 40 mg Syringe SC SCH (09:24)
[2018-06-14] MEDS: Cholestyramine 4 gm/Pkt UD PO SCH ×2 (09:27→17:52)
[2018-06-14] MEDS: Lactobacillus Acidophilus 500 MU Cap PEG SCH ×2 (09:28→17:52)
[2018-06-14] MEDS: Loperamide Hydrochloride 1 mg/5 ml Cup PO PRN (09:28)
[2018-06-14] MEDS ORDERED: HYDROmorphone 0.5 mg/0.5 ml ISec IVP ONE (10:00)
--- NOTE | 2018-06-14 19:26 | CP.PCM.PN ---
Subjective - Date & Time of Evaluation Date of Evaluation: 06/14/18 Time of Evaluation: 10:15 - Subjective Subjective: PGY-1 Medicine Progress Note for Dr. Denise Patient was seen and examined today at bedside in no acute distress. She had just received 0.5 Dilaudid for breakthrough pain and became increasingly lethargic through interview. Nurse reports no overnight events. Patient has no new complaints. No longer vomiting and had only one episode of diarrhea the previous night. Denies chest pain, shortness of breath, abdominal pain, fever, chills. Objective - Vital Signs/Intake and Output Vital Signs (last 24 hours): Temp Pulse Resp BP Pulse Ox 98.8 F 106 H 96 H 106/80 97 06/14/18 15:59 06/14/18 16:50 06/14/18 17:00 06/14/18 17:00 06/14/18 15:59 Intake and Output: 06/14/18 06/15/18 18:59 06:59 Intake Total 300 Output Total 420 Balance -120 - Medications Medications: Current Medications Acetaminophen (Tylenol 650mg/20.3ml Solution Ud) 975 mg GT Q8 PRN PRN Reason: Pain, Mild (1-3) Cholestyramine Resin (Questran) 4 gm PO BID [facility] Last Admin: 06/14/18 17:52 Dose: 4 gm Dextrose (Dextrose 50% Inj) 0 ml IV STAT PRN; Protocol PRN Reason: Hypoglycemia Protocol Last Admin: 05/16/18 23:40 Dose: 50 ml Dextrose (Glutose 15) 0 gm PO ONCE PRN; Protocol PRN Reason: Hypoglycemia Protocol Diphenhydramine HCl (Benadryl) 25 mg IVP HS PRN PRN Reason: Insomnia Last Admin: 06/13/18 22:00 Dose: 25 mg Enoxaparin Sodium (Lovenox) 40 mg SC DAILY [facility] Last Admin: 06/14/18 09:24 Dose: 40 mg Ergocalciferol (Drisdol 50,000 Intl Units Cap) 1 cap PO Q7D [facility] Stop: 07/20/18 10:31 Last Admin: 06/08/18 10:55 Dose: 1 cap Escitalopram Oxalate (Lexapro) 10 mg GT DAILY [facility] Last Admin: 06/14/18 09:28 Dose: 10 mg Glucagon (Glucagen Diagnostic Kit) 0 mg IM STAT PRN; Protocol PRN Reason: Hypoglycemia Protocol Hydrocortisone (Cortizone 1% Cream) 0 gm TOP TID PRN PRN Reason: Rash Hydromorphone HCl (Dilaudid) 1.5 mg IVP Q3 PRN PRN Reason: Pain, SEVERE (8-10) Last Admin: 06/14/18 16:56 Dose: 1.5 mg Metronidazole (Flagyl) 500 mg in 100 mls @ 100 mls/hr IVPB Q8H [facility] PRN Reason: Protocol Last Admin: 06/14/18 12:00 Dose: 100 mls/hr Ciprofloxacin (Cipro 400mg/200ml Dsw) 400 mg in 200 mls @ 133 mls/hr IVPB Q12H [facility] PRN Reason: Protocol Last Admin: 06/14/18 13:32 Dose: 133 mls/hr Insulin Human Regular (Novolin R) 0 unit SC Q6 [facility] PRN Reason: Protocol Last Admin: 06/14/18 17:33 Dose: Not Given Ipratropium [place] (Atrovent) 0.5 mg IH RQ6 [facility] Last Admin: 06/14/18 13:28 Dose: 0.5 mg Lactobacillus Acidophilus (Bacid Acidophilus) 1 cap PEG BID [facility] Last Admin: 06/14/18 17:52 Dose: 1 cap Loperamide HCl (Imodium) 1 mg PO Q2H PRN PRN Reason: Diarrhea Last Admin: 06/14/18 09:28 Dose: 1 mg Lorazepam (Ativan) 1 mg IVP BID [facility] Last Admin: 06/14/18 17:51 Dose: 1 mg Metoprolol Tartrate (Lopressor) 5 mg IVP Q6H [facility] Last Admin: 06/14/18 16:57 Dose: 5 mg Nicotine (Nicoderm Cq) 1 patch TD DAILY [facility] Last Admin: 06/14/18 09:24 Dose: 1 patch Ondansetron HCl (Zofran Inj) 4 mg IVP Q6H PRN PRN Reason: Nausea/Vomiting Last Admin: 06/14/18 14:16 Dose: 4 mg Pantoprazole Sodium (Protonix Inj) 40 mg IVP Q24H [facility] Last Admin: 06/14/18 15:54 Dose: Not Given Saliva Substitute (Mouth Kote 236 Ml) 0 ml MM Q6 PRN PRN Reason: Dry mouth Vitamin A (Vitamin A & D Oint Ud Foilpak) 1 ea TOP Q8 PRN PRN Reason: dry lips Last Admin: 05/20/18 11:10 Dose: 1 ea Vitamin E (Vitamin E 400 Units Cap) 400 intlu GT DAILY [facility] Last Admin: 06/14/18 09:28 Dose: 400 intlu - Labs Labs: 06/13/18 06:34 06/13/18 06:34 PT 14.3 SECONDS (9.7-12.2) H 06/10/18 07:05 INR 1.3 06/10/18 07:05 APTT 33 SECONDS (21-34) 05/25/18 06:16 - Constitutional Appears: Non-toxic, No Acute Distress - Head Exam Head Exam: ATRAUMATIC, NORMOCEPHALIC - Eye Exam Eye Exam: EOMI, Normal appearance - ENT Exam ENT Exam: Mucous Membranes Moist, Normal Exam Additional comments: NGT in place on intermittent suction - Respiratory Exam Respiratory Exam: Clear to Ausculation Bilateral, NORMAL BREATHING PATTERN. absent: Rales, Rhonchi, Wheezes - Cardiovascular Exam Cardiovascular Exam: Tachycardia, REGULAR RHYTHM, +S1, +S2. absent: Murmur - GI/Abdominal Exam GI & Abdominal Exam: Soft. absent: Firm, Guarding, Rigid Additional comments: Gtube in place. Abdominal incisions covered by wound vac, no air leak Tenderness to palpation in the R side of torso. No skin changes, temperature changes - Extremities Exam Extremities Exam: Full ROM, Normal Capillary Refill. 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 Harley (surgery) on the case * wound vac to continuous suction * Following Bariatric surgeon (Dr. Mccray) recs---Will plan for exchange of ojeda G-tube for a larger size Gtube preferably at least 24Fr in size with IR. current recs no hoahaoism of continuity operation until 5 weeks after 05/16 surgery * Current drainage from mildine incision possibly d/t leak of tube feed contents from around gastrostomy tube vs fistula--wound vac in place Cultures: * Peritoneal Fluid (05/14/18): Pseudomonas Aeruginosa sensitive to Meropenem * Wound Culture (05/23/18): Yudith albicans * Blood culture (05/15/18, 05/22/18): no growth * Urine culture (05/22/18): no growth * Incision site 05/31: Enterococcus faecalis, Acinetobacter baumannii * repeat wound culture during next wound vac change per ID Antibiotics - Continue Cipro 400 mg IV q12hrs (started 06/02) - Continue Flagyl 500mg IVPB Q8H (active since 05/15/18) - Discontinued Meropenem 1 gm IVPB Q8H (active since 05/15/18-05/27/18) Measure vitamin levels and replace as needed - Vit D <12.8- vit D 50,000 units q1wk x8 wks - B12 707, wnl - Folate 12.6, wnl - Vit A 42, wnl - Alpha Vit E 5.6, wnl Medications: - Continue Tylenol 975 mg liq q8hrs - Continue Dilaudid 1.5 mg IV q3hrs PRN - Continue Zofran 4mg IV q6hrs PRN - PT consulted- working with patient, current rec TCU following discharge Tachycardia, persistent (110s-130s)- possibly etiologies include pain, infection , anxiety - She is being treated for Left G Tube fluid infection. - Continue Ativan PRN. - Continue Dilaudid on board to be used PRN. - Continue Metoprolol tartrate 5 mg IV q6hrs with holding parameters (SBP <100, HR <60) Diarrhea, acute, improving- suspect secondary to PO intake by pt - C. Diff (05/22, 05/24, 05/28): negative - Stool O&P (05/25/18): negative - Stool leukocytes (05/25/18): negative - per ID continue Flagyl due to leak around wound vac Anxiety - Public Address System Installer consulted- pt initially refused but then accepted - Psychiatry consulted (Dr. Reyez)- managing Ativan - Continue Ativan 1 mg IV BID - Continue Lexapro 10 mg GT daily (started 05/31) Anemia, acute, stable, pt denies blood in stool - Patient received a total of 2 PRBC (on 05/16) and 4 FFP (on 05/15 to 05/16) - Iron 16, TIBC 205, % sat 4.7, ferritin 75.3 - Monitor CBC Q2D Thombocytosis, improving (504)- suspect reactive to pain, surgery - Resolved - Monitor CBC Q2D Diabetes Mellitus, Type 2, controlled - From prior note: Admittedly non-compliant, has not taken Januvia for one year - Accuchecks q6hrs - Hypoglycemic protocol - ISS regular - HbA1c 5.8 - History of gastric bypass surgery Hypercholesterolemia- untreated - LDL 38, HDL 14, Chol 104, TG 226 - History of gastric bypass surgery History of Hypertension, controlled- since gastric bypass has not taken meds - Metoprolol 5 mg IV q6hrs History of Obesity, resolved - s/p gastric bypass surgery in 2013 History of Asthma - Chronic - Atrovent q6hrs Nicotine use disorder - Chronic - From prior note: 1ppd x 20 yrs, 1/2 ppd x 3 yrs - Continue Nicoderm 1 patch TD QD Hypokalemia - Resolved - 3.6 WNL on 06/10 - 3.5 on 06/09, replenished w/ 20 meq KCl IVP, f/u w/ Q2D labs Hypomagnesemia - Resolved - 1.6 on 06/10 repleanished w/ 1gm in AM, will f/u w/ Q2D labs - 1.5 on 06/09, replenished w/ 1gm in AM, will f/u w/ Q2D labs Leukocytosis, trending downwards - likely secondary to to ischemic bowel secondary to small bowel obstruction and surgeries - Resolved - Cultures: Peritoneal Fluid (05/14/18): Pseudomonas Aeruginosa sensitive to Meropenem Wound Culture (05/23/18): Yudith albicans Blood culture (05/15/18, 05/22/18): no growth Urine culture (05/22/18): no growth - Wound Cx from incision site 05/31: Enterococcus faecalis, Acinetobacter baumannii, on ciprofloxacin 400 mg (started 06/02) - Monitor CBC Q2D Prophylaxis - Hydrocortisone 1% Cream topical TID for Right Upper Inner Arm macular rash- improved - Vitamin A&D topical q8hrs PRN for dry lips - Saliva substitute q6hrs PRN for dry mouth - IVF: not indicated - VTE ppx: Lovenox 40 mg SC daily, SCDs; encourage ambulation - GI ppx: Protonix 40 mg IV BID, Florastor BID - Code status: full code Dispo: will talk with SW tomorrow about getting her LTAC care until her surgery d/w Dr. Howie Romano PGY-1
[2018-06-14] MEDS: DiphenhydrAMINE 50 mg/ml Inj IVP PRN (20:05)
[2018-06-15] MEDS: (Novolin R) Insulin Human Regular 100 units/ml vial SC SCH ×4 (00:10→17:28)
[2018-06-15] MEDS: Ciprofloxacin 400mg/200ml D5W 400 MG/200 ML BAG IVPB SCH ×2 (02:09→14:27)
[2018-06-15] MEDS: Ipratropium 0.02% Inhal Soln (0.5 mg/2.5 ml) UD IH SCH ×3 (02:33→20:03)
[2018-06-15] MEDS: Metoprolol 1 mg/ml Inj IVP SCH ×4 (04:38→23:15)
[2018-06-15] MEDS: metroNIDAZOLE IV 500 mg/100 ml 500 MG/100 ML BAG IVPB SCH ×3 (04:44→20:06)
[2018-06-15 07:22] LABS: ALB/GLOB RATIO 0.9 (1.0-2.1); ALBUMIN 2.5 g/dL (3.5-5.0); ALT/SGPT 23 U/L (9-52); AST/SGOT 14 U/L (14-36); BASO # 0.1 K/uL (0.0-0.2); BASO % 0.6 % (0.0-2.0); BLOOD UREA NITROGEN 8 mg/dL (7-17); CALCIUM 8.1 mg/dl (8.6-10.4); EOS # 0.2 K/uL (0.0-0.7); EOS % 2.2 % (0.0-4.0); GFR NON-AFRICAN AMERICAN > 60; HEMOGLOBIN 8.7 g/dL (11.0-16.0); LYMPH # 2.2 K/uL (1.0-4.3); LYMPH % 21.7 % (20.0-40.0); MEAN CELL VOLUME 85.7 fL (81.0-99.0); MEAN CORPUSCULAR HEMOGLOBIN 28.2 pg (27.0-31.0); MEAN CORPUSCULAR HGB CONC 32.9 g/dL (33.0-37.0); MEAN PLATELET VOLUME 7.4 fL (7.2-11.7); MONO # 0.9 K/uL (0.0-0.8); MONO % 8.5 % (0.0-10.0); NEUT # 6.8 K/uL (1.8-7.0); RBC 3.09 Mil/uL (3.80-5.20); RED CELL DISTRIBUTION WIDTH 17.7 % (11.5-14.5); WHITE BLOOD COUNT 10.2 K/uL (4.8-10.8)
[2018-06-15] MEDS: Cholestyramine 4 gm/Pkt UD PO SCH ×2 (10:19→18:00)
[2018-06-15] MEDS: Enoxaparin 40 mg Syringe SC SCH (10:20)
[2018-06-15] MEDS: Lactobacillus Acidophilus 500 MU Cap PEG SCH ×2 (10:20→18:00)
[2018-06-15] MEDS: Ergocalciferol 50,000 Intl Units Cap PO SCH (10:40)
--- NOTE | 2018-06-15 10:52 | CP.PCM.PN ---
Subjective - Date & Time of Evaluation Date of Evaluation: 06/15/18 Time of Evaluation: 07:05 - Subjective Subjective: PGY-1 Medicine Progress Note for Dr. Denise Patient was seen and examined today at bedside. Patient is in no acute distress. As per nurse, there were no acute overnight events. Patient states she had one episode of diarrhea last night. Patient states there still some constant pain at the site of abdominal incision wound, but it is no different than it was previously. Patient states that she has increased appetite despite having increased her tube feedings to 50 from 40mls; Gtube leak is no longer occurring. Patient states she is ambulating well and has no other complaints. Patient denies fever, chills, headache, dizziness, chest pain, palpitations, SOB , nausea, vomiting, constipation or changes in urinary habits. Objective - Vital Signs/Intake and Output Vital Signs (last 24 hours): Temp Pulse Resp BP Pulse Ox 98.9 F 100 H 18 112/76 97 06/15/18 07:00 06/15/18 07:00 06/15/18 07:00 06/15/18 07:00 06/15/18 07:00 Intake and Output: 06/15/18 06/15/18 06:59 18:59 Intake Total 600 Output Total 270 Balance 330 - Medications Medications: Current Medications Acetaminophen (Tylenol 650mg/20.3ml Solution Ud) 975 mg GT Q8 PRN PRN Reason: Pain, Mild (1-3) Cholestyramine Resin (Questran) 4 gm PO BID [facility] Last Admin: 06/15/18 10:19 Dose: 4 gm Dextrose (Dextrose 50% Inj) 0 ml IV STAT PRN; Protocol PRN Reason: Hypoglycemia Protocol Last Admin: 05/16/18 23:40 Dose: 50 ml Dextrose (Glutose 15) 0 gm PO ONCE PRN; Protocol PRN Reason: Hypoglycemia Protocol Diphenhydramine HCl (Benadryl) 25 mg IVP HS PRN PRN Reason: Insomnia Last Admin: 06/14/18 20:05 Dose: 25 mg Enoxaparin Sodium (Lovenox) 40 mg SC DAILY [facility] Last Admin: 06/15/18 10:20 Dose: 40 mg Ergocalciferol (Drisdol 50,000 Intl Units Cap) 1 cap PO Q7D [facility] Stop: 07/20/18 10:31 Last Admin: 06/15/18 10:40 Dose: 1 cap Escitalopram Oxalate (Lexapro) 10 mg GT DAILY [facility] Last Admin: 06/15/18 10:19 Dose: 10 mg Glucagon (Glucagen Diagnostic Kit) 0 mg IM STAT PRN; Protocol PRN Reason: Hypoglycemia Protocol Hydrocortisone (Cortizone 1% Cream) 0 gm TOP TID PRN PRN Reason: Rash Hydromorphone HCl (Dilaudid) 1.5 mg IVP Q3 PRN PRN Reason: Pain, SEVERE (8-10) Last Admin: 06/15/18 08:08 Dose: 1.5 mg Metronidazole (Flagyl) 500 mg in 100 mls @ 100 mls/hr IVPB Q8H [facility] PRN Reason: Protocol Last Admin: 06/15/18 04:44 Dose: 100 mls/hr Ciprofloxacin (Cipro 400mg/200ml Dsw) 400 mg in 200 mls @ 133 mls/hr IVPB Q12H [facility] PRN Reason: Protocol Last Admin: 06/15/18 02:09 Dose: 133 mls/hr Insulin Human Regular (Novolin R) 0 unit SC Q6 [facility] PRN Reason: Protocol Last Admin: 06/15/18 06:10 Dose: Not Given Ipratropium [place] (Atrovent) 0.5 mg IH RQ6 [facility] Last Admin: 06/15/18 02:33 Dose: Not Given Lactobacillus Acidophilus (Bacid Acidophilus) 1 cap PEG BID [facility] Last Admin: 06/15/18 10:20 Dose: 1 cap Loperamide HCl (Imodium) 1 mg PO Q2H PRN PRN Reason: Diarrhea Last Admin: 06/14/18 09:28 Dose: 1 mg Lorazepam (Ativan) 1 mg IVP BID [facility] Last Admin: 06/15/18 10:25 Dose: 1 mg Metoprolol Tartrate (Lopressor) 5 mg IVP Q6H [facility] Last Admin: 06/15/18 10:18 Dose: 5 mg Nicotine (Nicoderm Cq) 1 patch TD DAILY [facility] Last Admin: 06/15/18 10:37 Dose: 1 patch Ondansetron HCl (Zofran Inj) 4 mg IVP Q6H PRN PRN Reason: Nausea/Vomiting Last Admin: 06/14/18 14:16 Dose: 4 mg Pantoprazole Sodium (Protonix Inj) 40 mg IVP Q24H [facility] Last Admin: 06/14/18 15:54 Dose: Not Given Saliva Substitute (Mouth Kote 236 Ml) 0 ml MM Q6 PRN PRN Reason: Dry mouth Vitamin A (Vitamin A & D Oint Ud Foilpak) 1 ea TOP Q8 PRN PRN Reason: dry lips Last Admin: 05/20/18 11:10 Dose: 1 ea Vitamin E (Vitamin E 400 Units Cap) 400 intlu GT DAILY [facility] Last Admin: 06/15/18 10:19 Dose: 400 intlu - Labs Labs: 06/15/18 06:38 06/15/18 06:38 PT 14.3 SECONDS (9.7-12.2) H 06/10/18 07:05 INR 1.3 06/10/18 07:05 APTT 33 SECONDS (21-34) 05/25/18 06:16 - Constitutional Appears: Non-toxic, No Acute Distress - Head Exam Head Exam: ATRAUMATIC, NORMAL INSPECTION, NORMOCEPHALIC - Eye Exam Eye Exam: EOMI, Normal appearance - ENT Exam ENT Exam: Mucous Membranes Moist Additional comments: NGT draining on intermittent suction - Respiratory Exam Respiratory Exam: Clear to Ausculation Bilateral. absent: Rales, Rhonchi, Wheezes Additional comments: gurgling in R middle lobe - Cardiovascular Exam Cardiovascular Exam: Tachycardia, REGULAR RHYTHM, +S1, +S2 - GI/Abdominal Exam GI & Abdominal Exam: Soft, Tenderness. absent: Distended, Firm, Guarding, Rigid , Rebound Additional comments: Tenderness to palpation along abdominal incision site. wound vac in place, air seal intact. Gtube in place, flushing well. dressing c/d/i - Extremities Exam Extremities Exam: Normal Capillary Refill, Normal Inspection. absent: Calf Tenderness, Pedal Edema, Tenderness Additional comments: R PICC in place, flushing well peripheral pulses palpable bilaterally (radial, PT) R IJ dressing removed. wound healing well - Back Exam Back Exam: absent: CVA tenderness (L), CVA tenderness (R) - Neurological Exam Neurological Exam: Alert, Awake, Oriented x3 - Psychiatric Exam Psychiatric exam: Normal Affect, Normal Mood - Skin Skin Exam: Dry, Normal Color, Warm Assessment and Plan - Assessment and Plan (Free Text) Assessment: 38F with a PMH of HTN, HLD, DM2, asthma s/p bowel resection (05/14, 05/16) 2/2 internal hernia s/p [id number] gastric bypass in 2014 admitted for medical optimization prior to reversal of bypass. Plan: Ischemic bowel disease secondary to internal hernias producing bowel obstruction Current Management: -Current drains include: NGT (have on intermittent suction per surgery), gastrostomy tube wound vac from 06/06, replaced 06/09 & 06/09 due to leakage Pt had IR procedure to replace G tube (06/10/18), [address], tolerating feeds - Dr. Harley (surgery) on the case Wound vac to continuous suction Following Bariatric surgeon (Dr. Mccray) recs-- Will plan for exchange of ojeda, G-tube for a larger size G-tube preferably at least 24Fr in size with IR. current recs no orthodox of continuity operation until 5 weeks after 05/16 surgery Current drainage from mid-line incision possibly d/t leak of tube feed contents form around gastrostomy tube vs fistula -- would vac in place Cultures: Peritoneal Fluid (05/14/18): Pseudomonas Aeruginosa sensitive to Meropenem Wound Culture (05/23/18): Yudith Albicans Blood Culture (05/15/18, 05/22/18): no growth Urine Culture (05/22/18): no growth Incision Site (05/31/18): Enterococcus faecalis, Acinetobacter baumannii repeat Incision Site (06/13/18): rare polymorphonuclear WBCs with no organisms seen, Coag neg Staph, enterococcus raffinosus. Antibiotics: will d/w ID (Dr. Rivera) about antibiotic regimen since sensitivities have come back - considering restarting Vanc and d/c'ing cipro Currently on Cipro 400 mg IV q12hrs (started 06/02, day 13) Continue Flagyl 500mg IVPB q8hrs (active since 05/15/18, day 31) Discontinued Meropenem 1gm IVPB q8hr (active since 05/15/18-05/27/18) Measure vitamin levels and replace as needed: Vit D <12.8- vid D 50,000 unites q1wk x8 wks B12 707, wnl Folate 12.6, wnl Vit A 42, wnl Alpha Vit E 5.6, wnl Tabitha, B1, B6, E levels reordered Medication: Continue Tylenol 975 mg liq q8hrs Continue Dilaudad 1.5mg IV q3hrs PRN Continue Zofran 4mg IV q6hrs PRN Tachycardia, persistent (110s-130s)- possibly etiologies include pain, infection , anxiety -She is being treated for Left G Tube fluid infection. -Continue Ativan PRN -Continue Dilaudid on board to be used PRN. -Continue Metoprolol tartrate 5mg IV q6hrs with holding parameters (SBP <100, HR <60) Diarrhea, acute, improving- suspect secondary to PO intake by pt -C.Diff (05/22, 05/24, 05/28): negative -Stool O&P (05/25/18): negative -Stool leukocytes (05/25/18): negative -per ID continue Flagyl due to leak around wound vac -Imodium 1mg PO Q2H PRN Anxiety -Hogshead Liner consulted- pt initially refused but then accepted -Psychiatry consulted (Dr. Reyez)- managing Ativan -Continue Ativan 1mg IV BID -Continue Lexapro 10mg GT daily (started 05/31) Insomnia -Benadryl 25 mg IVP HS PRN Anemia, acute, stable, pt denies blood in stool -Patient received a total of 2 PRBC (on 05/16) and 4 FFP (on 05/15 and 05/16) -Iron 16, TIBC 205, %sat 4.7, ferritin 75.3 -Monitor CBC Q2D Thrombocytosis, improving (504)- suspect reactive to pain, surgery- Resolved -Monitory CBC Q2D Diabetes Mellitus, Type 2- controlled -From prior note: Admittedly non-compliant, has not taken Januvia for one year -Accuchecks q6hrs -Hypoglycemic protocol -ISS regular -HbA1c 5.8 -History of gastric bypass surgery Hypercholesterolemia- untreated - LDL <30, HDL 23, Chol 59, TG 195 (06/03/18) - LDL 38, HDL 14, Chol 104, TG 226 (05/19/18) -History of gastric bypass surgery -Questran 4gm PO BID History of Hypertension, controlled- since gastric bypass has not taken meds -Metoprolol 5mg IV q6hrs History Obesity- Resolved -s/p gastric bypass surgery in 2013 History of Asthma- Chronic -Atrovent q6hrs Nicotine use disorder- Chronic -From prior note: 1ppd x 20 yrs, 1/2ppd x3 yrs -Continue Nicoderm 1 patch TD QD Electrolyte Imbalance: hypokalemia, hypomagnesiemia - resolved - continue to monitor with AM labs, replete as needed Leukocytosis, trending downwards- likely secondary to ischemic bowel secondary to small bowel obstruction and surgeries- Resolved -Cultures: Peritoneal Fluid (05/14/18): Pseudomonas Aeruginosa sensitive to Meropenem Wound Culture (05/23/18): Yudith albicans Blood Culture (05/15/18, 05/22/18): no growth Urine Culture (05/22/18): no growth -Wound Cx from incision site 05/31: Enterococcus faecalis, Acinetobacter baumanii , on ciprofloxacin 400mg (started 06/02) -Monitor CBC Q2D Prophylaxis -Hydrocortisone 1% Cream topical TID for Right Upper Inner Arm macular rash- improved -Vitamin A&D topical q8hrs PRN for dry lips -Saliva substitute q6hrs PRN for dry mouth -IVF: not indicated -VTE ppx: Lovenox 40mg SC daily, SCDs; encourage ambulation -GI ppx: Protonix 40mg IV BID, Bacid BID -Code status: full code Dispo: PT consulted - working with patient daily, rec home PT with services. Will stay at [facility] until bypass reversal surgery. Pending Dr. Mccray recs. d/w Dr. Howie Romano PGY-1
--- NOTE | 2018-06-15 17:25 | CP.PCM.PN ---
<Barbara Badillo - Last Filed: 06/15/18 22:50> Subjective - Date & Time of Evaluation Date of Evaluation: 06/15/18 Time of Evaluation: 17:24 - Subjective Subjective: General surgery progress note for Dr. Harley-Barbara Badillo, PGY-2 Pt S & E at bedside at 1450 Pt reports that nausea has resolved, no more episodes of emesis since yesterday. Ab pain is well controlled. Denies F & C. NGT w/500cc/24Hrs clear liquid output Wound vac with 75cc/12 hrs Tube feeds at 30cc hr Objective - Vital Signs/Intake and Output Vital Signs (last 24 hours): Temp Pulse Resp BP Pulse Ox 98.4 F 104 H 20 100/66 96 06/15/18 15:00 06/15/18 15:00 06/15/18 15:00 06/15/18 15:00 06/15/18 15:00 Intake and Output: 06/15/18 06/15/18 06:59 18:59 Intake Total 600 800 Output Total 270 575 Balance 330 225 - Medications Medications: Current Medications Acetaminophen (Tylenol 650mg/20.3ml Solution Ud) 975 mg GT Q8 PRN PRN Reason: Pain, Mild (1-3) Cholestyramine Resin (Questran) 4 gm PO BID [facility] Last Admin: 06/15/18 10:19 Dose: 4 gm Dextrose (Dextrose 50% Inj) 0 ml IV STAT PRN; Protocol PRN Reason: Hypoglycemia Protocol Last Admin: 05/16/18 23:40 Dose: 50 ml Dextrose (Glutose 15) 0 gm PO ONCE PRN; Protocol PRN Reason: Hypoglycemia Protocol Diphenhydramine HCl (Benadryl) 25 mg IVP HS PRN PRN Reason: Insomnia Last Admin: 06/14/18 20:05 Dose: 25 mg Enoxaparin Sodium (Lovenox) 40 mg SC DAILY [facility] Last Admin: 06/15/18 10:20 Dose: 40 mg Ergocalciferol (Drisdol 50,000 Intl Units Cap) 1 cap PO Q7D [facility] Stop: 07/20/18 10:31 Last Admin: 06/15/18 10:40 Dose: 1 cap Escitalopram Oxalate (Lexapro) 10 mg GT DAILY [facility] Last Admin: 06/15/18 10:19 Dose: 10 mg Glucagon (Glucagen Diagnostic Kit) 0 mg IM STAT PRN; Protocol PRN Reason: Hypoglycemia Protocol Hydrocortisone (Cortizone 1% Cream) 0 gm TOP TID PRN PRN Reason: Rash Hydromorphone HCl (Dilaudid) 1.5 mg IVP Q3 PRN PRN Reason: Pain, SEVERE (8-10) Last Admin: 06/15/18 14:08 Dose: 1.5 mg Metronidazole (Flagyl) 500 mg in 100 mls @ 100 mls/hr IVPB Q8H [facility] PRN Reason: Protocol Last Admin: 06/15/18 11:08 Dose: 100 mls/hr Ciprofloxacin (Cipro 400mg/200ml Dsw) 400 mg in 200 mls @ 133 mls/hr IVPB Q12H [facility] PRN Reason: Protocol Last Admin: 06/15/18 14:27 Dose: 133 mls/hr Insulin Human Regular (Novolin R) 0 unit SC Q6 [facility] PRN Reason: Protocol Last Admin: 06/15/18 12:30 Dose: Not Given Ipratropium [place] (Atrovent) 0.5 mg IH RQ6 [facility] Last Admin: 06/15/18 10:39 Dose: 0.5 mg Lactobacillus Acidophilus (Bacid Acidophilus) 1 cap PEG BID [facility] Last Admin: 06/15/18 10:20 Dose: 1 cap Loperamide HCl (Imodium) 1 mg PO Q2H PRN PRN Reason: Diarrhea Last Admin: 06/14/18 09:28 Dose: 1 mg Lorazepam (Ativan) 1 mg IVP BID [facility] Last Admin: 06/15/18 10:25 Dose: 1 mg Metoprolol Tartrate (Lopressor) 5 mg IVP Q6H [facility] Last Admin: 06/15/18 10:18 Dose: 5 mg Nicotine (Nicoderm Cq) 1 patch TD DAILY [facility] Last Admin: 06/15/18 10:37 Dose: 1 patch Ondansetron HCl (Zofran Inj) 4 mg IVP Q6H PRN PRN Reason: Nausea/Vomiting Last Admin: 06/14/18 14:16 Dose: 4 mg Pantoprazole Sodium (Protonix Inj) 40 mg IVP Q24H [facility] Last Admin: 06/15/18 15:00 Dose: 40 mg Saliva Substitute (Mouth Kote 236 Ml) 0 ml MM Q6 PRN PRN Reason: Dry mouth Vitamin A (Vitamin A & D Oint Ud Foilpak) 1 ea TOP Q8 PRN PRN Reason: dry lips Last Admin: 05/20/18 11:10 Dose: 1 ea Vitamin E (Vitamin E 400 Units Cap) 400 intlu GT DAILY [facility] Last Admin: 06/15/18 10:19 Dose: 400 intlu - Labs Labs: 06/15/18 06:38 06/15/18 06:38 PT 14.3 SECONDS (9.7-12.2) H 06/10/18 07:05 INR 1.3 06/10/18 07:05 APTT 33 SECONDS (21-34) 05/25/18 06:16 - Constitutional Appears: Non-toxic, No Acute Distress - Head Exam Head Exam: ATRAUMATIC, NORMAL INSPECTION, NORMOCEPHALIC Additional comments: NGT in place - Eye Exam Eye Exam: EOMI, Normal appearance - ENT Exam ENT Exam: Mucous Membranes Moist, Normal Exam - Respiratory Exam Respiratory Exam: NORMAL BREATHING PATTERN - Cardiovascular Exam Cardiovascular Exam: REGULAR RHYTHM, +S1, +S2 - GI/Abdominal Exam GI & Abdominal Exam: Soft. absent: Distended, Firm, Tenderness Additional comments: Midline wound with wound vac in place G tube in place with tube feeds running - Extremities Exam Extremities Exam: Normal Inspection - Neurological Exam Neurological Exam: Alert, Awake, CN II-XII Intact, Oriented x3 - Psychiatric Exam Psychiatric exam: Normal Affect, Normal Mood - Skin Skin Exam: Dry, Intact, Normal Color, Warm Assessment and Plan - Assessment and Plan (Free Text) Assessment: 38F s/p Binta-en-Y gastric bypass (2013) w/bowel ischemic 2/2 internal hernia POD#31 s/p ex lap, reduction of internal hernia, DANNI, drainage of abdominal collections, temporary abdominal closure & EGD POD#27 s/p re-exploration, resection of ileum & Binta limb including previous gastrojejunostomy, reversal of bypass, primary anastomosis of ileum-ileum, ileum -ileum, and ileum-jejunum. Gastrostomy tube in bypassed stomach, EGD Wound vac in place over midline incision Plan: Monitor electrolytes daily Cont wound vac to suction & change cannister PRN Plan to change wound vac tomorrow wound cx from wound vac site with coagulase neg staph & enterococcus raffinosus Monitor NGT output Cont tube feeds NGT to low intermittent suction, flush with saline & air PRN Cont Abx Pain control PRN OOBTC Encourage IS use need to fully medically/nutritionally optimize prior to re-operation as per Dr. Mahendra Badillo, PGY-2 <Gómez Harley - Last Filed: 06/19/18 10:51> Objective - Vital Signs/Intake and Output Vital Signs (last 24 hours): Temp Pulse Resp BP Pulse Ox 98.8 F 99 H 20 99/66 L 97 06/19/18 07:00 06/19/18 07:00 06/19/18 07:00 06/19/18 07:00 06/19/18 07:00 Intake and Output: 06/19/18 06/19/18 06:59 18:59 Intake Total 1000 Output Total 615 Balance 385 - Medications Medications: Current Medications Acetaminophen (Tylenol 650mg/20.3ml Solution Ud) 975 mg GT Q8 PRN PRN Reason: Pain, Mild (1-3) Last Admin: 06/16/18 09:25 Dose: 975 mg Bacitracin (Bacitracin) 2 ea TOP BID [facility] Stop: 06/19/18 18:01 Last Admin: 06/19/18 10:42 Dose: 2 ea Cholestyramine Resin (Questran) 4 gm PO BID [facility] Last Admin: 06/19/18 09:07 Dose: 4 gm Dextrose (Dextrose 50% Inj) 0 ml IV STAT PRN; Protocol PRN Reason: Hypoglycemia Protocol Last Admin: 05/16/18 23:40 Dose: 50 ml Dextrose (Glutose 15) 0 gm PO ONCE PRN; Protocol PRN Reason: Hypoglycemia Protocol Diphenhydramine HCl (Benadryl) 25 mg IVP QPM PRN PRN Reason: Insomnia Last Admin: 06/18/18 19:30 Dose: 25 mg Enoxaparin Sodium (Lovenox) 40 mg SC DAILY [facility] Last Admin: 06/19/18 09:08 Dose: 40 mg Ergocalciferol (Drisdol 50,000 Intl Units Cap) 1 cap PO Q7D [facility] Stop: 07/20/18 10:31 Last Admin: 06/15/18 10:40 Dose: 1 cap Escitalopram Oxalate (Lexapro) 10 mg GT DAILY [facility] Last Admin: 06/19/18 09:07 Dose: 10 mg Glucagon (Glucagen Diagnostic Kit) 0 mg IM STAT PRN; Protocol PRN Reason: Hypoglycemia Protocol Hydrocortisone (Cortizone 1% Cream) 0 gm TOP TID PRN PRN Reason: Rash Hydromorphone HCl (Dilaudid) 1.5 mg IVP Q3 PRN PRN Reason: Pain, SEVERE (8-10) Last Admin: 06/19/18 07:50 Dose: 1.5 mg Vancomycin HCl 1.5 gm/ Sodium (Chloride) 500 mls @ 333.333 mls/hr IVPB Q12H [facility] PRN Reason: Protocol Last Admin: 06/19/18 00:18 Dose: 333.333 mls/hr Insulin Human Regular (Novolin R) 0 unit SC Q6 [facility] PRN Reason: Protocol Last Admin: 06/19/18 06:20 Dose: Not Given Ipratropium [place] (Atrovent) 0.5 mg IH RQ6 [facility] Last Admin: 06/19/18 08:35 Dose: 0.5 mg Lactobacillus Acidophilus (Bacid Acidophilus) 1 cap PEG BID [facility] Last Admin: 06/19/18 09:07 Dose: 1 cap Loperamide HCl (Imodium) 1 mg PO Q2H PRN PRN Reason: Diarrhea Last Admin: 06/18/18 10:03 Dose: 1 mg Lorazepam (Ativan) 1 mg IVP BID [facility] Last Admin: 06/19/18 09:08 Dose: 1 mg Metoprolol Tartrate (Lopressor) 5 mg IVP Q6H [facility] Last Admin: 06/19/18 09:26 Dose: Not Given Nicotine (Nicoderm Cq) 1 patch TD DAILY [facility] Last Admin: 06/19/18 09:07 Dose: 1 patch Ondansetron HCl (Zofran Inj) 4 mg IVP Q6H PRN PRN Reason: Nausea/Vomiting Last Admin: 06/18/18 11:50 Dose: 4 mg Pantoprazole Sodium (Protonix Susp) 40 mg PO Q24H [facility] Last Admin: 06/19/18 09:08 Dose: 40 mg Saliva Substitute (Mouth Kote 236 Ml) 0 ml MM Q6 PRN PRN Reason: Dry mouth Vitamin A (Vitamin A & D Oint Ud Foilpak) 1 ea TOP Q8 PRN PRN Reason: dry lips Last Admin: 05/20/18 11:10 Dose: 1 ea Vitamin E (Vitamin E 400 Units Cap) 400 intlu GT DAILY [facility] Last Admin: 06/19/18 09:07 Dose: 400 intlu - Labs Labs: 06/19/18 07:06 06/19/18 07:06 PT 14.3 SECONDS (9.7-12.2) H 06/10/18 07:05 INR 1.3 06/10/18 07:05 APTT 33 SECONDS (21-34) 05/25/18 06:16 Attending/Attestation - Attestation I have fully participated in the care of the patient.: Yes I have reviewed all pertinent clinical information, including history, physical exam and plan: Yes Notes (Text): Pt is improving clinically Less leak from wound vac Pt is walking two times per day feeling much better Plan d.w pt in detail
[2018-06-15] MEDS: DiphenhydrAMINE 50 mg/ml Inj IVP PRN (20:06)
[2018-06-16] MEDS: (Novolin R) Insulin Human Regular 100 units/ml vial SC SCH ×5 (01:28→23:40)
[2018-06-16] MEDS: Ipratropium 0.02% Inhal Soln (0.5 mg/2.5 ml) UD IH SCH ×4 (01:39→19:49)
[2018-06-16] MEDS: Ciprofloxacin 400mg/200ml D5W 400 MG/200 ML BAG IVPB SCH (02:14)
[2018-06-16] MEDS: metroNIDAZOLE IV 500 mg/100 ml 500 MG/100 ML BAG IVPB SCH ×3 (04:51→19:59)
[2018-06-16] MEDS: Metoprolol 1 mg/ml Inj IVP SCH ×4 (05:15→21:36)
[2018-06-16 07:42] LABS: BLOOD UREA NITROGEN 8 mg/dL (7-17); CALCIUM 8.2 mg/dl (8.6-10.4); GFR NON-AFRICAN AMERICAN > 60
--- NOTE | 2018-06-16 08:42 | CP.PCM.PN ---
<Marcelino Moore Anel - Last Filed: 06/16/18 08:40> Subjective - Date & Time of Evaluation Date of Evaluation: 06/16/18 Time of Evaluation: 08:40 - Subjective Subjective: Gen Sx: Dr Harley Pt S&E. TRIPP. Resting comfortably. Wound vac changed at bedside. Minimal output. Objective - Vital Signs/Intake and Output Vital Signs (last 24 hours): Temp Pulse Resp BP Pulse Ox 98.8 F 96 H 18 108/77 98 06/16/18 08:19 06/16/18 08:19 06/16/18 08:19 06/16/18 08:19 06/16/18 08:19 Intake and Output: 06/16/18 06/16/18 06:59 18:59 Intake Total 100 800 Output Total 480 500 Balance -380 300 - Medications Medications: Current Medications Acetaminophen (Tylenol 650mg/20.3ml Solution Ud) 975 mg GT Q8 PRN PRN Reason: Pain, Mild (1-3) Cholestyramine Resin (Questran) 4 gm PO BID [facility] Last Admin: 06/15/18 18:00 Dose: 4 gm Dextrose (Dextrose 50% Inj) 0 ml IV STAT PRN; Protocol PRN Reason: Hypoglycemia Protocol Last Admin: 05/16/18 23:40 Dose: 50 ml Dextrose (Glutose 15) 0 gm PO ONCE PRN; Protocol PRN Reason: Hypoglycemia Protocol Diphenhydramine HCl (Benadryl) 25 mg IVP HS PRN PRN Reason: Insomnia Last Admin: 06/15/18 20:06 Dose: 25 mg Enoxaparin Sodium (Lovenox) 40 mg SC DAILY [facility] Last Admin: 06/15/18 10:20 Dose: 40 mg Ergocalciferol (Drisdol 50,000 Intl Units Cap) 1 cap PO Q7D [facility] Stop: 07/20/18 10:31 Last Admin: 06/15/18 10:40 Dose: 1 cap Escitalopram Oxalate (Lexapro) 10 mg GT DAILY [facility] Last Admin: 06/15/18 10:19 Dose: 10 mg Glucagon (Glucagen Diagnostic Kit) 0 mg IM STAT PRN; Protocol PRN Reason: Hypoglycemia Protocol Hydrocortisone (Cortizone 1% Cream) 0 gm TOP TID PRN PRN Reason: Rash Hydromorphone HCl (Dilaudid) 1.5 mg IVP Q3 PRN PRN Reason: Pain, SEVERE (8-10) Last Admin: 06/16/18 08:04 Dose: 1.5 mg Metronidazole (Flagyl) 500 mg in 100 mls @ 100 mls/hr IVPB Q8H [facility] PRN Reason: Protocol Last Admin: 06/16/18 04:51 Dose: 100 mls/hr Ciprofloxacin (Cipro 400mg/200ml Dsw) 400 mg in 200 mls @ 133 mls/hr IVPB Q12H [facility] PRN Reason: Protocol Last Admin: 06/16/18 02:14 Dose: 133 mls/hr Insulin Human Regular (Novolin R) 0 unit SC Q6 [facility] PRN Reason: Protocol Last Admin: 06/16/18 06:00 Dose: Not Given Ipratropium [place] (Atrovent) 0.5 mg IH RQ6 [facility] Last Admin: 06/16/18 08:34 Dose: 0.5 mg Lactobacillus Acidophilus (Bacid Acidophilus) 1 cap PEG BID [facility] Last Admin: 06/15/18 18:00 Dose: 1 cap Loperamide HCl (Imodium) 1 mg PO Q2H PRN PRN Reason: Diarrhea Last Admin: 06/14/18 09:28 Dose: 1 mg Lorazepam (Ativan) 1 mg IVP BID [facility] Last Admin: 06/15/18 18:04 Dose: 1 mg Metoprolol Tartrate (Lopressor) 5 mg IVP Q6H [facility] Last Admin: 06/16/18 05:15 Dose: 5 mg Nicotine (Nicoderm Cq) 1 patch TD DAILY [facility] Last Admin: 06/15/18 10:37 Dose: 1 patch Ondansetron HCl (Zofran Inj) 4 mg IVP Q6H PRN PRN Reason: Nausea/Vomiting Last Admin: 06/14/18 14:16 Dose: 4 mg Pantoprazole Sodium (Protonix Inj) 40 mg IVP Q24H [facility] Last Admin: 06/15/18 15:00 Dose: 40 mg Saliva Substitute (Mouth Kote 236 Ml) 0 ml MM Q6 PRN PRN Reason: Dry mouth Vitamin A (Vitamin A & D Oint Ud Foilpak) 1 ea TOP Q8 PRN PRN Reason: dry lips Last Admin: 05/20/18 11:10 Dose: 1 ea Vitamin E (Vitamin E 400 Units Cap) 400 intlu GT DAILY [facility] Last Admin: 06/15/18 10:19 Dose: 400 intlu - Labs Labs: 06/15/18 06:38 06/16/18 06:35 PT 14.3 SECONDS (9.7-12.2) H 06/10/18 07:05 INR 1.3 06/10/18 07:05 APTT 33 SECONDS (21-34) 05/25/18 06:16 - Constitutional Appears: Non-toxic - Head Exam Head Exam: NORMAL INSPECTION - ENT Exam ENT Exam: Mucous Membranes Moist - Respiratory Exam Respiratory Exam: absent: Accessory Muscle Use, Respiratory Distress - Cardiovascular Exam Cardiovascular Exam: REGULAR RHYTHM - GI/Abdominal Exam GI & Abdominal Exam: Soft. absent: Distended, Firm, Tenderness Assessment and Plan - Assessment and Plan (Free Text) Assessment: 38F s/p extensive sb resection, now in discontinuity Plan: cont TPN, cont wound vac cont NGT to suction will plan appropriate date to re-establish bowel continuity w/ Dr Mahendra Moore, PGY4 <Gómez Harley B - Last Filed: 06/19/18 11:01> Objective - Vital Signs/Intake and Output Vital Signs (last 24 hours): Temp Pulse Resp BP Pulse Ox 98.8 F 99 H 20 99/66 L 97 06/19/18 07:00 06/19/18 07:00 06/19/18 07:00 06/19/18 07:00 06/19/18 07:00 Intake and Output: 06/19/18 06/19/18 06:59 18:59 Intake Total 1000 Output Total 615 Balance 385 - Medications Medications: Current Medications Acetaminophen (Tylenol 650mg/20.3ml Solution Ud) 975 mg GT Q8 PRN PRN Reason: Pain, Mild (1-3) Last Admin: 06/16/18 09:25 Dose: 975 mg Bacitracin (Bacitracin) 2 ea TOP BID [facility] Stop: 06/19/18 18:01 Last Admin: 06/19/18 10:42 Dose: 2 ea Cholestyramine Resin (Questran) 4 gm PO BID [facility] Last Admin: 06/19/18 09:07 Dose: 4 gm Dextrose (Dextrose 50% Inj) 0 ml IV STAT PRN; Protocol PRN Reason: Hypoglycemia Protocol Last Admin: 05/16/18 23:40 Dose: 50 ml Dextrose (Glutose 15) 0 gm PO ONCE PRN; Protocol PRN Reason: Hypoglycemia Protocol Diphenhydramine HCl (Benadryl) 25 mg IVP QPM PRN PRN Reason: Insomnia Last Admin: 06/18/18 19:30 Dose: 25 mg Enoxaparin Sodium (Lovenox) 40 mg SC DAILY [facility] Last Admin: 06/19/18 09:08 Dose: 40 mg Ergocalciferol (Drisdol 50,000 Intl Units Cap) 1 cap PO Q7D [facility] Stop: 07/20/18 10:31 Last Admin: 06/15/18 10:40 Dose: 1 cap Escitalopram Oxalate (Lexapro) 10 mg GT DAILY [facility] Last Admin: 06/19/18 09:07 Dose: 10 mg Glucagon (Glucagen Diagnostic Kit) 0 mg IM STAT PRN; Protocol PRN Reason: Hypoglycemia Protocol Hydrocortisone (Cortizone 1% Cream) 0 gm TOP TID PRN PRN Reason: Rash Hydromorphone HCl (Dilaudid) 1.5 mg IVP Q3 PRN PRN Reason: Pain, SEVERE (8-10) Last Admin: 06/19/18 10:51 Dose: 1.5 mg Vancomycin HCl 1.5 gm/ Sodium (Chloride) 500 mls @ 333.333 mls/hr IVPB Q12H [facility] PRN Reason: Protocol Last Admin: 06/19/18 00:18 Dose: 333.333 mls/hr Insulin Human Regular (Novolin R) 0 unit SC Q6 [facility] PRN Reason: Protocol Last Admin: 06/19/18 06:20 Dose: Not Given Ipratropium [place] (Atrovent) 0.5 mg IH RQ6 [facility] Last Admin: 06/19/18 08:35 Dose: 0.5 mg Lactobacillus Acidophilus (Bacid Acidophilus) 1 cap PEG BID [facility] Last Admin: 06/19/18 09:07 Dose: 1 cap Loperamide HCl (Imodium) 1 mg PO Q2H PRN PRN Reason: Diarrhea Last Admin: 06/18/18 10:03 Dose: 1 mg Lorazepam (Ativan) 1 mg IVP BID [facility] Last Admin: 06/19/18 09:08 Dose: 1 mg Metoprolol Tartrate (Lopressor) 5 mg IVP Q6H [facility] Last Admin: 06/19/18 09:26 Dose: Not Given Nicotine (Nicoderm Cq) 1 patch TD DAILY [facility] Last Admin: 06/19/18 09:07 Dose: 1 patch Ondansetron HCl (Zofran Inj) 4 mg IVP Q6H PRN PRN Reason: Nausea/Vomiting Last Admin: 06/18/18 11:50 Dose: 4 mg Pantoprazole Sodium (Protonix Susp) 40 mg PO Q24H [facility] Last Admin: 06/19/18 09:08 Dose: 40 mg Saliva Substitute (Mouth Kote 236 Ml) 0 ml MM Q6 PRN PRN Reason: Dry mouth Vitamin A (Vitamin A & D Oint Ud Foilpak) 1 ea TOP Q8 PRN PRN Reason: dry lips Last Admin: 05/20/18 11:10 Dose: 1 ea Vitamin E (Vitamin E 400 Units Cap) 400 intlu GT DAILY [facility] Last Admin: 06/19/18 09:07 Dose: 400 intlu - Labs Labs: 06/19/18 07:06 06/19/18 07:06 PT 14.3 SECONDS (9.7-12.2) H 06/10/18 07:05 INR 1.3 06/10/18 07:05 APTT 33 SECONDS (21-34) 05/25/18 06:16 Attending/Attestation - Attestation I have personally seen and examined this patient.: Yes I have fully participated in the care of the patient.: Yes I have reviewed all pertinent clinical information, including history, physical exam and plan: Yes Notes (Text): Pt was seen and examined at bedside Agree with above note and assessment Pt is stable clinically Pt walking daily tolerating TF Prealbumin and Vitamins levels c/w current mx Plan d.w pt in detail Risk and benefit explained in detail.
[2018-06-16] MEDS: Enoxaparin 40 mg Syringe SC SCH (09:09)
[2018-06-16] MEDS: Lactobacillus Acidophilus 500 MU Cap PEG SCH ×2 (09:14→17:00)
[2018-06-16] MEDS: Loperamide Hydrochloride 1 mg/5 ml Cup PO PRN (09:14)
[2018-06-16] MEDS: Cholestyramine 4 gm/Pkt UD PO SCH ×2 (09:14→17:00)
[2018-06-16] MEDS: Acetaminophen 650mg/20.3ml solution UD GT PRN (09:25)
--- NOTE | 2018-06-16 09:34 | CP.PCM.PN ---
Subjective - Date & Time of Evaluation Date of Evaluation: 06/16/18 Time of Evaluation: 07:00 - Subjective Subjective: PGY-[address] Denise's Service Patient was seen and examined at bedside. Patient is in no acute distress. As per overnight nurse, there were no acute events overnight. Patient states she is doing well, had one episode of diarrhea last night. Patient states she has been ambulating well and has no other complaints. Patient denies fever, chills, headache, dizziness, chest pain, palpitations, SOB, nausea, vomiting, or changes in urinary habits. Objective - Vital Signs/Intake and Output Vital Signs (last 24 hours): Temp Pulse Resp BP Pulse Ox 98.8 F 96 H 18 108/77 98 06/16/18 08:19 06/16/18 08:19 06/16/18 08:19 06/16/18 08:19 06/16/18 08:19 Intake and Output: 06/16/18 06/16/18 06:59 18:59 Intake Total 100 800 Output Total 480 500 Balance -380 300 - Medications Medications: Current Medications Acetaminophen (Tylenol 650mg/20.3ml Solution Ud) 975 mg GT Q8 PRN PRN Reason: Pain, Mild (1-3) Cholestyramine Resin (Questran) 4 gm PO BID [facility] Last Admin: 06/16/18 09:14 Dose: 4 gm Dextrose (Dextrose 50% Inj) 0 ml IV STAT PRN; Protocol PRN Reason: Hypoglycemia Protocol Last Admin: 05/16/18 23:40 Dose: 50 ml Dextrose (Glutose 15) 0 gm PO ONCE PRN; Protocol PRN Reason: Hypoglycemia Protocol Diphenhydramine HCl (Benadryl) 25 mg IVP HS PRN PRN Reason: Insomnia Last Admin: 06/15/18 20:06 Dose: 25 mg Enoxaparin Sodium (Lovenox) 40 mg SC DAILY [facility] Last Admin: 06/16/18 09:09 Dose: 40 mg Ergocalciferol (Drisdol 50,000 Intl Units Cap) 1 cap PO Q7D [facility] Stop: 07/20/18 10:31 Last Admin: 06/15/18 10:40 Dose: 1 cap Escitalopram Oxalate (Lexapro) 10 mg GT DAILY [facility] Last Admin: 06/16/18 09:13 Dose: 10 mg Glucagon (Glucagen Diagnostic Kit) 0 mg IM STAT PRN; Protocol PRN Reason: Hypoglycemia Protocol Hydrocortisone (Cortizone 1% Cream) 0 gm TOP TID PRN PRN Reason: Rash Hydromorphone HCl (Dilaudid) 1.5 mg IVP Q3 PRN PRN Reason: Pain, SEVERE (8-10) Last Admin: 06/16/18 08:04 Dose: 1.5 mg Metronidazole (Flagyl) 500 mg in 100 mls @ 100 mls/hr IVPB Q8H [facility] PRN Reason: Protocol Last Admin: 06/16/18 04:51 Dose: 100 mls/hr Ciprofloxacin (Cipro 400mg/200ml Dsw) 400 mg in 200 mls @ 133 mls/hr IVPB Q12H [facility] PRN Reason: Protocol Last Admin: 06/16/18 02:14 Dose: 133 mls/hr Insulin Human Regular (Novolin R) 0 unit SC Q6 [facility] PRN Reason: Protocol Last Admin: 06/16/18 06:00 Dose: Not Given Ipratropium [place] (Atrovent) 0.5 mg IH RQ6 [facility] Last Admin: 06/16/18 08:34 Dose: 0.5 mg Lactobacillus Acidophilus (Bacid Acidophilus) 1 cap PEG BID [facility] Last Admin: 06/16/18 09:14 Dose: 1 cap Loperamide HCl (Imodium) 1 mg PO Q2H PRN PRN Reason: Diarrhea Last Admin: 06/16/18 09:14 Dose: 1 mg Lorazepam (Ativan) 1 mg IVP BID [facility] Last Admin: 06/16/18 09:08 Dose: 1 mg Metoprolol Tartrate (Lopressor) 5 mg IVP Q6H [facility] Last Admin: 06/16/18 05:15 Dose: 5 mg Nicotine (Nicoderm Cq) 1 patch TD DAILY [facility] Last Admin: 06/16/18 09:13 Dose: 1 patch Ondansetron HCl (Zofran Inj) 4 mg IVP Q6H PRN PRN Reason: Nausea/Vomiting Last Admin: 06/14/18 14:16 Dose: 4 mg Pantoprazole Sodium (Protonix Inj) 40 mg IVP Q24H [facility] Last Admin: 06/16/18 09:09 Dose: 40 mg Saliva Substitute (Mouth Kote 236 Ml) 0 ml MM Q6 PRN PRN Reason: Dry mouth Vitamin A (Vitamin A & D Oint Ud Foilpak) 1 ea TOP Q8 PRN PRN Reason: dry lips Last Admin: 05/20/18 11:10 Dose: 1 ea Vitamin E (Vitamin E 400 Units Cap) 400 intlu GT DAILY [facility] Last Admin: 06/16/18 09:14 Dose: 400 intlu - Labs Labs: 06/15/18 06:38 06/16/18 06:35 PT 14.3 SECONDS (9.7-12.2) H 06/10/18 07:05 INR 1.3 06/10/18 07:05 APTT 33 SECONDS (21-34) 05/25/18 06:16 - Constitutional Appears: Non-toxic, No Acute Distress - Head Exam Head Exam: ATRAUMATIC, NORMAL INSPECTION, NORMOCEPHALIC - ENT Exam ENT Exam: Mucous Membranes Moist Additional comments: NG tube in place, on suction, suctional white/ light yellow phlegm - Neck Exam Neck Exam: Normal Inspection - Respiratory Exam Respiratory Exam: Clear to Ausculation Bilateral. absent: Rales, Rhonchi, Wheezes - Cardiovascular Exam Cardiovascular Exam: +S1, +S2. absent: Irregular Rhythm, Murmur - GI/Abdominal Exam GI & Abdominal Exam: Soft, Tenderness, Normal Bowel Sounds Additional comments: 24 F G tube in place, wound vac in place suctioning, incision sites, clean, dry intact - Extremities Exam Extremities Exam: Full ROM. absent: Calf Tenderness, Pedal Edema, Tenderness Additional comments: R PICC in place, flushing well peripheral pulses palpable bilaterally (radial, PT) R IJ dressing removed. wound healing well - Neurological Exam Neurological Exam: Alert, Awake, Oriented x3 - Psychiatric Exam Psychiatric exam: Normal Affect, Normal Mood - Skin Skin Exam: Dry, Intact, Normal Color Assessment and Plan - Assessment and Plan (Free Text) Assessment: 38F with a PMH of HTN, HLD, DM2, asthma s/p bowel resection (05/14, 05/16) 2/2 internal hernia s/p Binta-en-Y gastric bypass in 2013 admitted for medical optimization prior to reversal of bypass Ischemic bowel disease secondary to internal hernias producing bowel obstruction Current Management: - Current drains include: NGT (have on intermittent suction per surgery), gastrostomy tube (replaced 06/10), wound vac replaced again today 06/16 - Repeat wound culture (06/13/18): Coag neg Staph, enterococcus raffinosus, Abx - sensative to vancomyocin - D/C cipro, start vanco 1g Q12 - F/u vanc troph on 06/17 @ 11:30pm - Dr. Harley (surgery) on the case Wound vac to continuous suction Following Bariatric surgeon (Dr. Mccray) recs-- Current recs no quaker of continuity operation until 5 weeks after 05/16 surgery Current drainage from mid-line incision possibly d/t leak of tube feed contents form around gastrostomy tube vs fistula -- would vac in place Repeat wound culture (06/13/18): Coag neg Staph, enterococcus raffinosus, Abx - cirpro to vancomyocin for coverage Cultures: Peritoneal Fluid (05/14/18): Pseudomonas Aeruginosa sensitive to Meropenem Wound Culture (05/23/18): Yudith Albicans Blood Culture (05/15/18, 05/22/18): no growth Urine Culture (05/22/18): no growth Incision Site (05/31/18): Enterococcus faecalis, Acinetobacter baumannii Stool Cultures (06/03/18): No salmonella, shigella, or campylobacteria isolates Repeat wound culture (06/13/18): Coag neg Staph, enterococcus raffinosus Antibiotics Continue Vancomycin 1gm IV Q12Hr (started 06/16 @ 12pm), ideal vanc troph 15-20 Discontinued Cipro 400 mg IV q12hrs (started 06/02, last day 06/16/18) Continue Flagyl 500mg IVPB q8hrs (active since 05/15/18. day 31) Discontinued Meropenem 1gm IVPB q8hr (active since 05/15/18-05/27/18) Measure vitamin levels and replace as needed Vit D <12.8- vid D 50,000 unites q1wk x8 wks B12 707, wnl Folate 12.6, wnl Vit A 42, wnl Alpha Vit E 5.6, wnl Vit A, B1, B6, E levels reordered on 06/15 Medication: Continue Tylenol 975 mg liq q8hrs Continue Dilaudad 1.5mg IV q3hrs PRN Continue Zofran 4mg IV q6hrs PRN Tachycardia, persistent (110s-130s)- possibly etiologies include pain, infection , anxiety -She is being treated for Left G Tube fluid infection. -Continue Ativan PRN -Continue Dilaudid on board to be used PRN. -Continue Metoprolol tartrate 5mg IV q6hrs with holding parameters (SBP <100, HR <60) Diarrhea, acute, improving- suspect secondary to PO intake by pt -C.Diff (05/22, 05/24, 05/28): negative -Stool O&P (05/25/18): negative -Stool leukocytes (05/25/18): negative -per ID continue Flagyl due to leak around wound vac -Imodium 1mg PO Q2H PRN Anxiety -Real Estate Teacher consulted- pt initially refused but then accepted -Psychiatry consulted (Dr. Reyez)- managing Ativan -Continue Ativan 1mg IV BID -Continue Lexapro 10mg GT daily (started 05/31) Insomnia - Discontinue, Benadryl 25 mg IVP HS PRN, clinically not indicated Anemia, acute, stable, pt denies blood in stool -Patient received a total of 2 PRBC (on 05/16) and 4 FFP (on 05/15 and 05/16) -Iron 16, TIBC 205, %sat 4.7, ferritin 75.3 -Monitor CBC Q2D Thrombocytosis, improving (504)- suspect reactive to pain, surgery- Resolved -Monitory CBC Q2D Diabetes Mellitus, Type 2- controlled -From prior note: Admittedly non-compliant, has not taken Januvia for one year -Accuchecks q6hrs -Hypoglycemic protocol -ISS regular -HbA1c 5.8 -History of gastric bypass surgery Hypercholesterolemia- untreated - LDL <30, HDL 23, Chol 59, TG 195 (06/03/18) - LDL 38, HDL 14, Chol 104, TG 226 (05/19/18) - History of gastric bypass surgery - Questran 4gm PO BID History of Hypertension, controlled- since gastric bypass has not taken meds -Metoprolol 5mg IV q6hrs History Obesity- Resolved -s/p gastric bypass surgery in 2013 History of Asthma- Chronic -Atrovent q6hrs Nicotine use disorder- Chronic - From prior note: 1ppd x 20 yrs, 1/2ppd x3 yrs - Continue Nicoderm 1 patch TD QD Electrolyte Imbalance: hypokalemia, hypomagnesemia - resolved - continue to monitor with AM labs, replete as needed Leukocytosis, trending downwards- likely secondary to ischemic bowel secondary to small bowel obstruction and surgeries- Resolved - Cultures: Peritoneal Fluid (05/14/18): Pseudomonas Aeruginosa sensitive to Meropenem Wound Culture (05/23/18): Yudith albicans Blood Culture (05/15/18, 05/22/18): no growth Urine Culture (05/22/18): no growth Wound Cx from incision site 05/31: Enterococcus faecalis, Acinetobacter baumanii, on ciprofloxacin 400mg (started 06/02) - Monitor CBC Q2D Prophylaxis -Hydrocortisone 1% Cream topical TID for Right Upper Inner Arm macular rash- improved -Vitamin A&D topical q8hrs PRN for dry lips -Saliva substitute q6hrs PRN for dry mouth -IVF: not indicated -VTE ppx: Lovenox 40mg SC daily, SCDs; encourage ambulation -GI ppx: Protonix 40mg IV BID, Florastor BID -Code status: full code Dispo: PT consulted- working with patient daily, rec home PT with services. Will stay at [facility], [place] until bypass reversal surgery. Pending Dr. Mccray recs. d/w Dr. Howie Torres PGY-1
[2018-06-16] MEDS: Vancomycin 1 gm/NS 200 ml 1 GM/200 ML BAG IVPB SCH (13:00)
[2018-06-17] MEDS: Ipratropium 0.02% Inhal Soln (0.5 mg/2.5 ml) UD IH SCH ×4 (01:39→13:28)
[2018-06-17] MEDS: Vancomycin 1 gm/NS 200 ml 1 GM/200 ML BAG IVPB SCH ×2 (01:42→13:27)
[2018-06-17] MEDS: Metoprolol 1 mg/ml Inj IVP SCH ×4 (03:31→22:36)
[2018-06-17] MEDS: metroNIDAZOLE IV 500 mg/100 ml 500 MG/100 ML BAG IVPB SCH ×2 (03:31→19:34)
[2018-06-17 06:00] LABS: BASO # 0.1 K/uL (0.0-0.2); BASO % 0.9 % (0.0-2.0); EOS # 0.2 K/uL (0.0-0.7); HEMOGLOBIN 8.6 g/dL (11.0-16.0); LYMPH % 19.3 % (20.0-40.0); MEAN CELL VOLUME 86.4 fL (81.0-99.0); MEAN CORPUSCULAR HEMOGLOBIN 28.7 pg (27.0-31.0); MEAN CORPUSCULAR HGB CONC 33.2 g/dL (33.0-37.0); MEAN PLATELET VOLUME 7.1 fL (7.2-11.7); MONO # 0.8 K/uL (0.0-0.8); MONO % 7.4 % (0.0-10.0); NEUT # 7.2 K/uL (1.8-7.0); NEUT % 70.4 % (50.0-75.0); NRBC % 0.1 % (0.0-2.0); RED CELL DISTRIBUTION WIDTH 17.9 % (11.5-14.5); WHITE BLOOD COUNT 10.2 K/uL (4.8-10.8)
[2018-06-17 06:17] LABS: ALB/GLOB RATIO 0.9 (1.0-2.1); ALBUMIN 2.5 g/dL (3.5-5.0); ALT/SGPT 23 U/L (9-52); AST/SGOT 14 U/L (14-36); BLOOD UREA NITROGEN 8 mg/dL (7-17); CALCIUM 7.8 mg/dl (8.6-10.4); GFR NON-AFRICAN AMERICAN > 60
--- NOTE | 2018-06-17 09:33 | CP.PCM.PN ---
Subjective - Date & Time of Evaluation Date of Evaluation: 06/17/18 Time of Evaluation: 07:50 - Subjective Subjective: PGY-1 Medicine Progress Note for Dr. Denise Patient was seen and examined today at bedside in no acute distress. Nurse reports no overnight events; states that patient is very aggressive about asking for pain medication before her prescribed time. Patient remains clinically same. The wound vac that was changed yesterday has lifting tape, however airseal remains. Gtube is not leaking and functioning properly. Patient had only 1 BM in the last 24 hours, no urinary complaints. Patient complains of staying asleep due to loud noises of the hospital, but is tired enough to fall asleep without difficulty. Denies chest pain, shortness of breath, headache, cough, nausea, vomiting, numbness, tingling, fever, chills. Objective - Vital Signs/Intake and Output Vital Signs (last 24 hours): Temp Pulse Resp BP Pulse Ox 98.6 F 100 H 18 99/67 L 98 06/17/18 07:00 06/17/18 07:00 06/17/18 07:00 06/17/18 07:00 06/17/18 07:00 Intake and Output: 06/17/18 06/17/18 06:59 18:59 Intake Total 1200 Output Total 750 Balance 450 - Medications Medications: Current Medications Acetaminophen (Tylenol 650mg/20.3ml Solution Ud) 975 mg GT Q8 PRN PRN Reason: Pain, Mild (1-3) Last Admin: 06/16/18 09:25 Dose: 975 mg Cholestyramine Resin (Questran) 4 gm PO BID [facility] Last Admin: 06/16/18 17:00 Dose: 4 gm Dextrose (Dextrose 50% Inj) 0 ml IV STAT PRN; Protocol PRN Reason: Hypoglycemia Protocol Last Admin: 05/16/18 23:40 Dose: 50 ml Dextrose (Glutose 15) 0 gm PO ONCE PRN; Protocol PRN Reason: Hypoglycemia Protocol Enoxaparin Sodium (Lovenox) 40 mg SC DAILY [facility] Last Admin: 06/16/18 09:09 Dose: 40 mg Ergocalciferol (Drisdol 50,000 Intl Units Cap) 1 cap PO Q7D [facility] Stop: 07/20/18 10:31 Last Admin: 06/15/18 10:40 Dose: 1 cap Escitalopram Oxalate (Lexapro) 10 mg GT DAILY [facility] Last Admin: 06/16/18 09:13 Dose: 10 mg Glucagon (Glucagen Diagnostic Kit) 0 mg IM STAT PRN; Protocol PRN Reason: Hypoglycemia Protocol Hydrocortisone (Cortizone 1% Cream) 0 gm TOP TID PRN PRN Reason: Rash Hydromorphone HCl (Dilaudid) 1.5 mg IVP Q3 PRN PRN Reason: Pain, SEVERE (8-10) Last Admin: 06/17/18 06:58 Dose: 1.5 mg Metronidazole (Flagyl) 500 mg in 100 mls @ 100 mls/hr IVPB Q8H [facility] PRN Reason: Protocol Last Admin: 06/17/18 03:31 Dose: 100 mls/hr Vancomycin/Sodium Chloride (Vancomycin 1 Gm/Ns 200 Ml) 1 gm in 200 mls @ 133 mls/hr IVPB Q12H [facility] PRN Reason: Protocol Stop: 06/21/18 13:01 Last Admin: 06/17/18 01:42 Dose: 133 mls/hr Insulin Human Regular (Novolin R) 0 unit SC Q6 [facility] PRN Reason: Protocol Last Admin: 06/16/18 23:40 Dose: Not Given Ipratropium [place] (Atrovent) 0.5 mg IH RQ6 [facility] Last Admin: 06/17/18 07:28 Dose: Not Given Lactobacillus Acidophilus (Bacid Acidophilus) 1 cap PEG BID [facility] Last Admin: 06/16/18 17:00 Dose: 1 cap Loperamide HCl (Imodium) 1 mg PO Q2H PRN PRN Reason: Diarrhea Last Admin: 06/16/18 09:14 Dose: 1 mg Lorazepam (Ativan) 1 mg IVP BID [facility] Last Admin: 06/16/18 17:00 Dose: 1 mg Metoprolol Tartrate (Lopressor) 5 mg IVP Q6H [facility] Last Admin: 06/17/18 03:31 Dose: 5 mg Nicotine (Nicoderm Cq) 1 patch TD DAILY [facility] Last Admin: 06/16/18 09:13 Dose: 1 patch Ondansetron HCl (Zofran Inj) 4 mg IVP Q6H PRN PRN Reason: Nausea/Vomiting Last Admin: 06/17/18 01:45 Dose: 4 mg Pantoprazole Sodium (Protonix Inj) 40 mg IVP Q24H [facility] Last Admin: 06/16/18 15:53 Dose: 40 mg Saliva Substitute (Mouth Kote 236 Ml) 0 ml MM Q6 PRN PRN Reason: Dry mouth Vitamin A (Vitamin A & D Oint Ud Foilpak) 1 ea TOP Q8 PRN PRN Reason: dry lips Last Admin: 05/20/18 11:10 Dose: 1 ea Vitamin E (Vitamin E 400 Units Cap) 400 intlu GT DAILY [facility] Last Admin: 06/16/18 09:14 Dose: 400 intlu - Labs Labs: 06/17/18 05:56 06/17/18 05:56 PT 14.3 SECONDS (9.7-12.2) H 06/10/18 07:05 INR 1.3 06/10/18 07:05 APTT 33 SECONDS (21-34) 05/25/18 06:16 - Constitutional Appears: Non-toxic, No Acute Distress, Chronically Ill - Head Exam Head Exam: ATRAUMATIC, NORMOCEPHALIC - Eye Exam Eye Exam: EOMI, Normal appearance - ENT Exam ENT Exam: Mucous Membranes Moist, Normal Exam Additional comments: NGT in place, intermittent suction, suctioning well - Respiratory Exam Respiratory Exam: Clear to Ausculation Bilateral, NORMAL BREATHING PATTERN. absent: Rales, Rhonchi, Wheezes - Cardiovascular Exam Cardiovascular Exam: REGULAR RHYTHM, +S1, +S2. absent: Murmur - GI/Abdominal Exam GI & Abdominal Exam: Soft, Normal Bowel Sounds. absent: Tenderness Additional comments: midline abdominal incision wound suctioned by wound vac, draining well Gtube in place, flushing well. tube feeds at 50 all dressing c/d/i - Extremities Exam Extremities Exam: Full ROM, Normal Capillary Refill Additional comments: R PICC in place, flushing well peripheral pulses present bilaterally (radial, PT, DP) - Neurological Exam Neurological Exam: Alert, Awake, Oriented x3 - Psychiatric Exam Psychiatric exam: Normal Affect, Normal Mood - Skin Skin Exam: Dry, Intact, Normal Color Assessment and Plan - Assessment and Plan (Free Text) Assessment: 38F with a PMH of HTN, HLD, DM2, asthma s/p bowel resection (05/14, 05/16) 2/2 internal hernia s/p Binta-en-Y gastric bypass in 2013 admitted for medical optimization prior to reversal of bypass Plan: Ischemic bowel disease secondary to internal hernias producing bowel obstruction Current Management: - Current drains include: NGT (have on intermittent suction per surgery), gastrostomy tube (replaced 06/10), wound vac replaced again today 06/16 - Repeat wound culture (06/13/18): Coag neg Staph, enterococcus raffinosus, Abx - sensative to vancomyocin - D/C cipro, start vanco 1g Q12 - F/u vanc trough on 06/17 @ 11:30pm - Dr. Harley (surgery) on the case Wound vac to continuous suction Following Bariatric surgeon (Dr. Mccray) recs-- Current recs no christianity of continuity operation until 5 weeks after 05/16 surgery Current drainage from mid-line incision possibly d/t leak of tube feed contents form around gastrostomy tube vs fistula -- would vac in place Repeat wound culture (06/13/18): Coag neg Staph, enterococcus raffinosus, Abx - cirpro to vancomyocin for coverage Cultures: Peritoneal Fluid (05/14/18): Pseudomonas Aeruginosa sensitive to Meropenem Wound Culture (05/23/18): Yudith Albicans Blood Culture (05/15/18, 05/22/18): no growth Urine Culture (05/22/18): no growth Incision Site (05/31/18): Enterococcus faecalis, Acinetobacter baumannii Stool Cultures (06/03/18): No salmonella, shigella, or campylobacteria isolates Repeat wound culture (06/13/18): Coag neg Staph, enterococcus raffinosus Antibiotics Continue Vancomycin 1gm IV Q12Hr (started 06/16 @ 12pm), goal vanc trough 15-20 Discontinued Cipro 400 mg IV q12hrs (started 06/02, last day 06/16/18) Continue Flagyl 500mg IVPB q8hrs (active since 05/15/18. day 31) Discontinued Meropenem 1gm IVPB q8hr (active since 05/15/18-05/27/18) Measure vitamin levels and replace as needed Vit D <12.8- vid D 50,000 unites q1wk x8 wks B12 707, wnl Folate 12.6, wnl Vit A 42, wnl Alpha Vit E 5.6, wnl Vit A, B1, B6, E levels reordered on 06/15. VitB1, B6 received-send out. Tabitha, E collected Medication: Continue Tylenol 975 mg liq q8hrs Continue Dilaudad 1.5mg IV q3hrs PRN Continue Zofran 4mg IV q6hrs PRN Tachycardia, persistent (110s-130s)- possibly etiologies include pain, infection , anxiety -She is being treated for Left G Tube fluid infection. -Continue Ativan PRN -Continue Dilaudid on board to be used PRN. -Continue Metoprolol tartrate 5mg IV q6hrs with holding parameters (SBP <100, HR <60) Diarrhea, acute, improving- suspect secondary to PO intake by pt -C.Diff (05/22, 05/24, 05/28): negative -Stool O&P (05/25/18): negative -Stool leukocytes (05/25/18): negative -per ID continue Flagyl due to leak around wound vac -Imodium 1mg PO Q2H PRN Anxiety -C[employer]arette [employer] Chief Inspector consulted- pt initially refused but then accepted -Psychiatry consulted (Dr. Reyez)- managing Ativan -Continue Ativan 1mg IV BID -Continue Lexapro 10mg GT daily (started 05/31) Insomnia - Discontinue, Benadryl 25 mg IVP HS PRN, clinically not indicated Anemia, acute, stable, pt denies blood in stool -Patient received a total of 2 PRBC (on 05/16) and 4 FFP (on 05/15 and 05/16) -Iron 16, TIBC 205, %sat 4.7, ferritin 75.3 -Monitor CBC Q2D Thrombocytosis, improving (504)- suspect reactive to pain, surgery- Resolved -Monitory CBC Q2D Diabetes Mellitus, Type 2- controlled -From prior note: Admittedly non-compliant, has not taken Januvia for one year -Accuchecks q6hrs -Hypoglycemic protocol -ISS regular -HbA1c 5.8 -History of gastric bypass surgery Hypercholesterolemia- untreated - LDL <30, HDL 23, Chol 59, TG 195 (06/03/18) - LDL 38, HDL 14, Chol 104, TG 226 (05/19/18) - History of gastric bypass surgery - Questran 4gm PO BID History of Hypertension, controlled- since gastric bypass has not taken meds -Metoprolol 5mg IV q6hrs History Obesity- Resolved -s/p gastric bypass surgery in 2013 History of Asthma- Chronic -Atrovent q6hrs Nicotine use disorder- Chronic - From prior note: 1ppd x 20 yrs, 1/2ppd x3 yrs - Continue Nicoderm 1 patch TD QD Electrolyte Imbalance: hypokalemia, hypomagnesemia - resolved - continue to monitor with AM labs, replete as needed Leukocytosis, trending downwards- likely secondary to ischemic bowel secondary to small bowel obstruction and surgeries- Resolved - Cultures: Peritoneal Fluid (05/14/18): Pseudomonas Aeruginosa sensitive to Meropenem Wound Culture (05/23/18): Yudith albicans Blood Culture (05/15/18, 05/22/18): no growth Urine Culture (05/22/18): no growth Wound Cx from incision site 05/31: Enterococcus faecalis, Acinetobacter baumanii, on ciprofloxacin 400mg (started 06/02) - Monitor CBC Q2D Prophylaxis -Hydrocortisone 1% Cream topical TID for Right Upper Inner Arm macular rash- improved -Vitamin A&D topical q8hrs PRN for dry lips -Saliva substitute q6hrs PRN for dry mouth -IVF: not indicated -VTE ppx: Lovenox 40mg SC daily, SCDs; encourage ambulation -GI ppx: Protonix 40mg IV BID, Florastor BID -Code status: full code Dispo: PT consulted- working with patient daily, rec home PT with services. Will stay at [facility] [place] until bypass reversal surgery. Pending Dr. Mccray recs. d/w Dr. Howie Romano PGY-1
[2018-06-17] MEDS ORDERED: Magnesium Sulfate 1 gm in D5W 1 GM/100 ML BAG IVPB ONE (09:57)
[2018-06-17] MEDS: Enoxaparin 40 mg Syringe SC SCH (10:35)
[2018-06-17] MEDS: Lactobacillus Acidophilus 500 MU Cap PEG SCH ×2 (10:37→19:34)
[2018-06-17] MEDS: Cholestyramine 4 gm/Pkt UD PO SCH ×2 (10:38→19:34)
[2018-06-17] MEDS ORDERED: Bacitracin 500 Units/gm Oint Foilpak UD TOP ONE (13:39)
[2018-06-17] MEDS: (Novolin R) Insulin Human Regular 100 units/ml vial SC SCH (18:00)
[2018-06-17] MEDS: DiphenhydrAMINE 50 mg/ml Inj IVP PRN (21:44)
[2018-06-18] MEDS: (Novolin R) Insulin Human Regular 100 units/ml vial SC SCH ×4 (00:12→18:00)
--- NOTE | 2018-06-18 01:15 | CP.PCM.PN ---
<Sarbjit Torres - Last Filed: 06/18/18 06:55> Subjective - Date & Time of Evaluation Date of Evaluation: 06/18/18 Time of Evaluation: 06:00 - Subjective Subjective: PGY-1 Medicine Progress Note for Dr. Denise Patient was seen and examined today at bedside in no acute distress. No overnight events reported. Patient remains clinically same. Patient states she has roughly 3 bowel movements yesterday, one today. Patient states she has some tenderness on palpation on stomach but denies chest pain, shortness of breath, headache, cough, nausea, vomiting, numbness, tingling, fever, chills. Patient has no leaking from wound vac. Objective - Vital Signs/Intake and Output Vital Signs (last 24 hours): Temp Pulse Resp BP Pulse Ox 98.4 F 96 H 20 101/68 96 06/17/18 23:05 06/17/18 23:05 06/17/18 23:05 06/17/18 23:05 06/17/18 23:05 Intake and Output: 06/17/18 06/18/18 18:59 06:59 Intake Total 800 100 Output Total 1250 425 Balance -450 -325 - Medications Medications: Current Medications Acetaminophen (Tylenol 650mg/20.3ml Solution Ud) 975 mg GT Q8 PRN PRN Reason: Pain, Mild (1-3) Last Admin: 06/16/18 09:25 Dose: 975 mg Cholestyramine Resin (Questran) 4 gm PO BID [facility] Last Admin: 06/17/18 19:34 Dose: 4 gm Dextrose (Dextrose 50% Inj) 0 ml IV STAT PRN; Protocol PRN Reason: Hypoglycemia Protocol Last Admin: 05/16/18 23:40 Dose: 50 ml Dextrose (Glutose 15) 0 gm PO ONCE PRN; Protocol PRN Reason: Hypoglycemia Protocol Diphenhydramine HCl (Benadryl) 25 mg IVP QPM PRN PRN Reason: Insomnia Last Admin: 06/17/18 21:44 Dose: 25 mg Enoxaparin Sodium (Lovenox) 40 mg SC DAILY [facility] Last Admin: 06/17/18 10:35 Dose: 40 mg Ergocalciferol (Drisdol 50,000 Intl Units Cap) 1 cap PO Q7D [facility] Stop: 07/20/18 10:31 Last Admin: 06/15/18 10:40 Dose: 1 cap Escitalopram Oxalate (Lexapro) 10 mg GT DAILY [facility] Last Admin: 06/17/18 10:38 Dose: 10 mg Glucagon (Glucagen Diagnostic Kit) 0 mg IM STAT PRN; Protocol PRN Reason: Hypoglycemia Protocol Hydrocortisone (Cortizone 1% Cream) 0 gm TOP TID PRN PRN Reason: Rash Hydromorphone HCl (Dilaudid) 1.5 mg IVP Q3 PRN PRN Reason: Pain, SEVERE (8-10) Last Admin: 06/17/18 22:32 Dose: 1.5 mg Metronidazole (Flagyl) 500 mg in 100 mls @ 100 mls/hr IVPB Q8H [facility] PRN Reason: Protocol Last Admin: 06/17/18 19:34 Dose: 100 mls/hr Vancomycin/Sodium Chloride (Vancomycin 1 Gm/Ns 200 Ml) 1 gm in 200 mls @ 133 mls/hr IVPB Q12H [facility] PRN Reason: Protocol Stop: 06/21/18 13:01 Last Admin: 06/17/18 13:27 Dose: 133 mls/hr Insulin Human Regular (Novolin R) 0 unit SC Q6 [facility] PRN Reason: Protocol Last Admin: 06/17/18 18:00 Dose: Not Given Ipratropium [place] (Atrovent) 0.5 mg IH RQ6 [facility] Last Admin: 06/17/18 13:28 Dose: 0.5 mg Lactobacillus Acidophilus (Bacid Acidophilus) 1 cap PEG BID [facility] Last Admin: 06/17/18 19:34 Dose: 1 cap Loperamide HCl (Imodium) 1 mg PO Q2H PRN PRN Reason: Diarrhea Last Admin: 06/16/18 09:14 Dose: 1 mg Lorazepam (Ativan) 1 mg IVP BID [facility] Last Admin: 06/17/18 19:34 Dose: 1 mg Metoprolol Tartrate (Lopressor) 5 mg IVP Q6H [facility] Last Admin: 06/17/18 22:36 Dose: Not Given Nicotine (Nicoderm Cq) 1 patch TD DAILY [facility] Last Admin: 06/17/18 10:38 Dose: 1 patch Ondansetron HCl (Zofran Inj) 4 mg IVP Q6H PRN PRN Reason: Nausea/Vomiting Last Admin: 06/17/18 01:45 Dose: 4 mg Pantoprazole Sodium (Protonix Inj) 40 mg IVP Q24H [facility] Last Admin: 06/17/18 16:35 Dose: 40 mg Saliva Substitute (Mouth Kote 236 Ml) 0 ml MM Q6 PRN PRN Reason: Dry mouth Vitamin A (Vitamin A & D Oint Ud Foilpak) 1 ea TOP Q8 PRN PRN Reason: dry lips Last Admin: 05/20/18 11:10 Dose: 1 ea Vitamin E (Vitamin E 400 Units Cap) 400 intlu GT DAILY [facility] Last Admin: 06/17/18 10:38 Dose: 400 intlu - Labs Labs: 06/17/18 05:56 06/17/18 05:56 PT 14.3 SECONDS (9.7-12.2) H 06/10/18 07:05 INR 1.3 06/10/18 07:05 APTT 33 SECONDS (21-34) 05/25/18 06:16 - Constitutional Appears: Non-toxic, No Acute Distress - Head Exam Head Exam: ATRAUMATIC, NORMAL INSPECTION, NORMOCEPHALIC - Eye Exam Eye Exam: EOMI, Normal appearance Pupil Exam: NORMAL ACCOMODATION - ENT Exam ENT Exam: Mucous Membranes Moist Additional comments: NGT in place, intermittent suction, suctioning well - Respiratory Exam Respiratory Exam: Clear to Ausculation Bilateral, NORMAL BREATHING PATTERN. absent: Rales, Rhonchi, Wheezes - Cardiovascular Exam Cardiovascular Exam: Tachycardia, +S1, +S2. absent: Irregular Rhythm - GI/Abdominal Exam GI & Abdominal Exam: Soft, Tenderness, Normal Bowel Sounds. absent: Guarding, Rigid Additional comments: G tube in place Wound vac in place No erythema present - Extremities Exam Extremities Exam: Full ROM, Normal Inspection. 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 Harley (surgery) on the case Wound vac to continuous suction Following Bariatric surgeon (Dr. Mccray) recs-- Current recs no hoahaoism of continuity operation until 5 weeks after 05/16 surgery Current drainage from mid-line incision possibly d/t leak of tube feed contents form around gastrostomy tube vs fistula -- would vac in place Repeat wound culture (06/13/18): Coag neg Staph, enterococcus raffinosus, Abx - cirpro to vancomyocin for coverage Cultures: Peritoneal Fluid (05/14/18): Pseudomonas Aeruginosa sensitive to Meropenem Wound Culture (05/23/18): Yudith Albicans Blood Culture (05/15/18, 05/22/18): no growth Urine Culture (05/22/18): no growth Incision Site (05/31/18): Enterococcus faecalis, Acinetobacter baumannii Stool Cultures (06/03/18): No salmonella, shigella, or campylobacteria isolates Repeat wound culture (06/13/18): Coag neg Staph, enterococcus raffinosus Antibiotics Continue Vancomycin 1gm IV Q12Hr (started 06/16 @ 12pm), goal vanc trough 15-20 Discontinued Cipro 400 mg IV q12hrs (started 06/02, last day 06/16/18) Continue Flagyl 500mg IVPB q8hrs (active since 05/15/18. day 31) Discontinued Meropenem 1gm IVPB q8hr (active since 05/15/18-05/27/18) Measure vitamin levels and replace as needed Vit D <12.8- vid D 50,000 unites q1wk x8 wks B12 707, wnl Folate 12.6, wnl Vit A 42, wnl Alpha Vit E 5.6, wnl Vit A, B1, B6, E levels reordered on 06/15. VitB1, B6 received-send out. Tabitha, E collected Medication: Continue Tylenol 975 mg liq q8hrs Continue Dilaudad 1.5mg IV q3hrs PRN Continue Zofran 4mg IV q6hrs PRN Tachycardia, persistent (110s-130s)- possibly etiologies include pain, infection , anxiety -She is being treated for Left G Tube fluid infection. -Continue Ativan PRN -Continue Dilaudid on board to be used PRN. -Continue Metoprolol tartrate 5mg IV q6hrs with holding parameters (SBP <100, HR <60) Diarrhea, acute, improving- suspect secondary to PO intake by pt -C.Diff (05/22, 05/24, 05/28): negative -Stool O&P (05/25/18): negative -Stool leukocytes (05/25/18): negative -per ID continue Flagyl due to leak around wound vac -Imodium 1mg PO Q2H PRN Anxiety -Manager Change consulted- pt initially refused but then accepted -Psychiatry consulted (Dr. Reyez)- managing Ativan -Continue Ativan 1mg IV BID -Continue Lexapro 10mg GT daily (started 05/31) Insomnia - Discontinue, Benadryl 25 mg IVP HS PRN, clinically not indicated Anemia, acute, stable, pt denies blood in stool -Patient received a total of 2 PRBC (on 05/16) and 4 FFP (on 05/15 and 05/16) -Iron 16, TIBC 205, %sat 4.7, ferritin 75.3 -Monitor CBC Q2D Thrombocytosis, improving (504)- suspect reactive to pain, surgery- Resolved -Monitory CBC Q2D Diabetes Mellitus, Type 2- controlled -From prior note: Admittedly non-compliant, has not taken Januvia for one year -Accuchecks q6hrs -Hypoglycemic protocol -ISS regular -HbA1c 5.8 -History of gastric bypass surgery Hypercholesterolemia- untreated - LDL <30, HDL 23, Chol 59, TG 195 (06/03/18) - LDL 38, HDL 14, Chol 104, TG 226 (05/19/18) - History of gastric bypass surgery - Questran 4gm PO BID History of Hypertension, controlled- since gastric bypass has not taken meds -Metoprolol 5mg IV q6hrs History Obesity- Resolved -s/p gastric bypass surgery in 2013 History of Asthma- Chronic -Atrovent q6hrs Nicotine use disorder- Chronic - From prior note: 1ppd x 20 yrs, 1/2ppd x3 yrs - Continue Nicoderm 1 patch TD QD Electrolyte Imbalance: hypokalemia, hypomagnesemia - resolved - continue to monitor with AM labs, replete as needed Leukocytosis, trending downwards- likely secondary to ischemic bowel secondary to small bowel obstruction and surgeries- Resolved - Cultures: Peritoneal Fluid (05/14/18): Pseudomonas Aeruginosa sensitive to Meropenem Wound Culture (05/23/18): Yudith albicans Blood Culture (05/15/18, 05/22/18): no growth Urine Culture (05/22/18): no growth Wound Cx from incision site 05/31: Enterococcus faecalis, Acinetobacter baumanii, on ciprofloxacin 400mg (started 06/02) - Monitor CBC Q2D Prophylaxis -Hydrocortisone 1% Cream topical TID for Right Upper Inner Arm macular rash- improved -Vitamin A&D topical q8hrs PRN for dry lips -Saliva substitute q6hrs PRN for dry mouth -IVF: not indicated -VTE ppx: Lovenox 40mg SC daily, SCDs; encourage ambulation -GI ppx: Protonix 40mg IV BID, Florastor BID -Code status: full code Dispo: PT consulted- working with patient daily, rec home PT with services. Will stay at [facility] until bypass reversal surgery. Pending Dr. Mccray recs. will d/w Dr. Howie Torres PGY-1 <Franki Denise - Last Filed: 06/18/18 12:03> Objective - Vital Signs/Intake and Output Vital Signs (last 24 hours): Temp Pulse Resp BP Pulse Ox 99.8 F H 95 H 20 111/73 100 06/18/18 07:00 06/18/18 07:00 06/18/18 07:00 06/18/18 07:00 06/18/18 07:00 Intake and Output: 06/18/18 06/18/18 06:59 18:59 Intake Total 600 Output Total 435 Balance 165 - Medications Medications: Current Medications Acetaminophen (Tylenol 650mg/20.3ml Solution Ud) 975 mg GT Q8 PRN PRN Reason: Pain, Mild (1-3) Last Admin: 06/16/18 09:25 Dose: 975 mg Cholestyramine Resin (Questran) 4 gm PO BID [facility] Last Admin: 06/18/18 10:01 Dose: 4 gm Dextrose (Dextrose 50% Inj) 0 ml IV STAT PRN; Protocol PRN Reason: Hypoglycemia Protocol Last Admin: 05/16/18 23:40 Dose: 50 ml Dextrose (Glutose 15) 0 gm PO ONCE PRN; Protocol PRN Reason: Hypoglycemia Protocol Diphenhydramine HCl (Benadryl) 25 mg IVP QPM PRN PRN Reason: Insomnia Last Admin: 06/17/18 21:44 Dose: 25 mg Enoxaparin Sodium (Lovenox) 40 mg SC DAILY [facility] Last Admin: 06/18/18 10:01 Dose: 40 mg Ergocalciferol (Drisdol 50,000 Intl Units Cap) 1 cap PO Q7D [facility] Stop: 07/20/18 10:31 Last Admin: 06/15/18 10:40 Dose: 1 cap Escitalopram Oxalate (Lexapro) 10 mg GT DAILY [facility] Last Admin: 06/18/18 10:03 Dose: 10 mg Glucagon (Glucagen Diagnostic Kit) 0 mg IM STAT PRN; Protocol PRN Reason: Hypoglycemia Protocol Hydrocortisone (Cortizone 1% Cream) 0 gm TOP TID PRN PRN Reason: Rash Hydromorphone HCl (Dilaudid) 1.5 mg IVP Q3 PRN PRN Reason: Pain, SEVERE (8-10) Last Admin: 06/18/18 10:38 Dose: 1.5 mg Metronidazole (Flagyl) 500 mg in 100 mls @ 100 mls/hr IVPB Q8H [facility] PRN Reason: Protocol Last Admin: 06/18/18 04:35 Dose: 100 mls/hr Vancomycin HCl 1.5 gm/ Sodium (Chloride) 500 mls @ 333.333 mls/hr IVPB Q12H [facility] PRN Reason: Protocol Insulin Human Regular (Novolin R) 0 unit SC Q6 [facility] PRN Reason: Protocol Last Admin: 06/18/18 06:01 Dose: Not Given Ipratropium [place] (Atrovent) 0.5 mg IH RQ6 [facility] Last Admin: 06/18/18 07:14 Dose: 0.5 mg Lactobacillus Acidophilus (Bacid Acidophilus) 1 cap PEG BID [facility] Last Admin: 06/18/18 10:03 Dose: 1 cap Loperamide HCl (Imodium) 1 mg PO Q2H PRN PRN Reason: Diarrhea Last Admin: 06/18/18 10:03 Dose: 1 mg Lorazepam (Ativan) 1 mg IVP BID [facility] Last Admin: 06/18/18 09:58 Dose: 1 mg Metoprolol Tartrate (Lopressor) 5 mg IVP Q6H [facility] Last Admin: 06/18/18 10:48 Dose: 5 mg Nicotine (Nicoderm Cq) 1 patch TD DAILY [facility] Last Admin: 06/18/18 10:01 Dose: 1 patch Ondansetron HCl (Zofran Inj) 4 mg IVP Q6H PRN PRN Reason: Nausea/Vomiting Last Admin: 06/18/18 11:50 Dose: 4 mg Pantoprazole Sodium (Protonix Inj) 40 mg IVP Q24H [facility] Last Admin: 06/18/18 09:59 Dose: 40 mg Saliva Substitute (Mouth Kote 236 Ml) 0 ml MM Q6 PRN PRN Reason: Dry mouth Vitamin A (Vitamin A & D Oint Ud Foilpak) 1 ea TOP Q8 PRN PRN Reason: dry lips Last Admin: 05/20/18 11:10 Dose: 1 ea Vitamin E (Vitamin E 400 Units Cap) 400 intlu GT DAILY [facility] Last Admin: 06/18/18 10:40 Dose: 400 intlu - Labs Labs: 06/17/18 05:56 06/17/18 05:56 PT 14.3 SECONDS (9.7-12.2) H 06/10/18 07:05 INR 1.3 06/10/18 07:05 APTT 33 SECONDS (21-34) 05/25/18 06:16 Attending/Attestation - Attestation I have personally seen and examined this patient.: Yes I have fully participated in the care of the patient.: Yes I have reviewed all pertinent clinical information, including history, physical exam and plan: Yes Notes (Text): 06/18/18 12:02 Patient was seen and examined at 11:[address] [facility] 06/20/18 at 12:30 AM. Franki Denise D.O.
[2018-06-18] MEDS: Ipratropium 0.02% Inhal Soln (0.5 mg/2.5 ml) UD IH SCH ×4 (01:23→19:23)
[2018-06-18] MEDS: Vancomycin 1 gm/NS 200 ml 1 GM/200 ML BAG IVPB SCH (01:34)
[2018-06-18] MEDS: metroNIDAZOLE IV 500 mg/100 ml 500 MG/100 ML BAG IVPB SCH ×3 (04:35→19:31)
[2018-06-18] MEDS: Metoprolol 1 mg/ml Inj IVP SCH ×4 (05:52→22:42)
--- NOTE | 2018-06-18 08:15 | CP.PCM.PN ---
<Barbara Badillo - Last Filed: 06/18/18 08:15> Subjective - Date & Time of Evaluation Date of Evaluation: 06/18/18 Time of Evaluation: 08:14 - Subjective Subjective: General surgery progress note for Dr. Harley-Barbara Badillo, PGY-2 Pt S & E at bedside at 0650 Pt reports abdominal pain well controlled. Denies N & V, F & C. Is getting OOBTC. Wound vac with no output over 12hr NGT - 410 output/24hrs Objective - Vital Signs/Intake and Output Vital Signs (last 24 hours): Temp Pulse Resp BP Pulse Ox 98.2 F 108 H 20 105/68 96 06/18/18 04:00 06/18/18 05:49 06/18/18 05:49 06/18/18 05:49 06/18/18 04:00 Intake and Output: 06/18/18 06/18/18 06:59 18:59 Intake Total 600 Output Total 435 Balance 165 - Medications Medications: Current Medications Acetaminophen (Tylenol 650mg/20.3ml Solution Ud) 975 mg GT Q8 PRN PRN Reason: Pain, Mild (1-3) Last Admin: 06/16/18 09:25 Dose: 975 mg Cholestyramine Resin (Questran) 4 gm PO BID [facility] Last Admin: 06/17/18 19:34 Dose: 4 gm Dextrose (Dextrose 50% Inj) 0 ml IV STAT PRN; Protocol PRN Reason: Hypoglycemia Protocol Last Admin: 05/16/18 23:40 Dose: 50 ml Dextrose (Glutose 15) 0 gm PO ONCE PRN; Protocol PRN Reason: Hypoglycemia Protocol Diphenhydramine HCl (Benadryl) 25 mg IVP QPM PRN PRN Reason: Insomnia Last Admin: 06/17/18 21:44 Dose: 25 mg Enoxaparin Sodium (Lovenox) 40 mg SC DAILY [facility] Last Admin: 06/17/18 10:35 Dose: 40 mg Ergocalciferol (Drisdol 50,000 Intl Units Cap) 1 cap PO Q7D [facility] Stop: 07/20/18 10:31 Last Admin: 06/15/18 10:40 Dose: 1 cap Escitalopram Oxalate (Lexapro) 10 mg GT DAILY [facility] Last Admin: 06/17/18 10:38 Dose: 10 mg Glucagon (Glucagen Diagnostic Kit) 0 mg IM STAT PRN; Protocol PRN Reason: Hypoglycemia Protocol Hydrocortisone (Cortizone 1% Cream) 0 gm TOP TID PRN PRN Reason: Rash Hydromorphone HCl (Dilaudid) 1.5 mg IVP Q3 PRN PRN Reason: Pain, SEVERE (8-10) Last Admin: 06/18/18 07:35 Dose: 1.5 mg Metronidazole (Flagyl) 500 mg in 100 mls @ 100 mls/hr IVPB Q8H [facility] PRN Reason: Protocol Last Admin: 06/18/18 04:35 Dose: 100 mls/hr Vancomycin HCl 1.5 gm/ Sodium (Chloride) 500 mls @ 333.333 mls/hr IVPB Q12H [facility] PRN Reason: Protocol Insulin Human Regular (Novolin R) 0 unit SC Q6 [facility] PRN Reason: Protocol Last Admin: 06/18/18 06:01 Dose: Not Given Ipratropium [place] (Atrovent) 0.5 mg IH RQ6 [facility] Last Admin: 06/18/18 07:14 Dose: 0.5 mg Lactobacillus Acidophilus (Bacid Acidophilus) 1 cap PEG BID [facility] Last Admin: 06/17/18 19:34 Dose: 1 cap Loperamide HCl (Imodium) 1 mg PO Q2H PRN PRN Reason: Diarrhea Last Admin: 06/16/18 09:14 Dose: 1 mg Lorazepam (Ativan) 1 mg IVP BID [facility] Last Admin: 06/17/18 19:34 Dose: 1 mg Metoprolol Tartrate (Lopressor) 5 mg IVP Q6H [facility] Last Admin: 06/18/18 05:52 Dose: 5 mg Nicotine (Nicoderm Cq) 1 patch TD DAILY [facility] Last Admin: 06/17/18 10:38 Dose: 1 patch Ondansetron HCl (Zofran Inj) 4 mg IVP Q6H PRN PRN Reason: Nausea/Vomiting Last Admin: 06/17/18 01:45 Dose: 4 mg Pantoprazole Sodium (Protonix Inj) 40 mg IVP Q24H [facility] Last Admin: 06/17/18 16:35 Dose: 40 mg Saliva Substitute (Mouth Kote 236 Ml) 0 ml MM Q6 PRN PRN Reason: Dry mouth Vitamin A (Vitamin A & D Oint Ud Foilpak) 1 ea TOP Q8 PRN PRN Reason: dry lips Last Admin: 05/20/18 11:10 Dose: 1 ea Vitamin E (Vitamin E 400 Units Cap) 400 intlu GT DAILY [facility] Last Admin: 06/17/18 10:38 Dose: 400 intlu - Labs Labs: 06/17/18 05:56 06/17/18 05:56 PT 14.3 SECONDS (9.7-12.2) H 06/10/18 07:05 INR 1.3 06/10/18 07:05 APTT 33 SECONDS (21-34) 05/25/18 06:16 - Constitutional Appears: Non-toxic, No Acute Distress - Head Exam Head Exam: ATRAUMATIC, NORMAL INSPECTION, NORMOCEPHALIC Additional comments: NGT in place - Eye Exam Eye Exam: EOMI, Normal appearance - ENT Exam ENT Exam: Mucous Membranes Moist, Normal Exam - Neck Exam Neck Exam: Full ROM, Normal Inspection - Respiratory Exam Respiratory Exam: NORMAL BREATHING PATTERN - Cardiovascular Exam Cardiovascular Exam: REGULAR RHYTHM, +S1, +S2 - GI/Abdominal Exam GI & Abdominal Exam: Soft. absent: Distended, Firm, Guarding, Tenderness Additional comments: midline wound vac in place- superior aspect with small non adherent portion- covered with tegederm G tube in place with tube feeds running - Extremities Exam Extremities Exam: Normal Inspection - Neurological Exam Neurological Exam: Alert, Awake, CN II-XII Intact, Oriented x3 - Psychiatric Exam Psychiatric exam: Normal Affect, Normal Mood - Skin Skin Exam: Dry, Normal Color, Warm Assessment and Plan - Assessment and Plan (Free Text) Assessment: 38F s/p Binta-en-Y gastric bypass (2013) w/bowel ischemic 2/2 internal hernia POD#33 s/p ex lap, reduction of internal hernia, DANNI, drainage of abdominal collections, temporary abdominal closure & EGD POD#29 s/p re-exploration, resection of ileum & Binta limb including previous gastrojejunostomy, reversal of bypass, primary anastomosis of ileum-ileum, ileum -ileum, and ileum-jejunum. Gastrostomy tube in bypassed stomach, EGD Wound vac in place over midline incision Plan: Monitor wound vac output Plan to change wound vac on 06/20 Monitor NGT output NGT to low-intermittent wall suction Cont TPN FU labs OOBTC Ambulate with assistance Encourage IS use Will plan appropriate date for surgery w/Dr. Mccray Will DW Dr. Cricket Badillo, PGY-2 <Gómez Harley - Last Filed: 06/19/18 11:08> Objective - Vital Signs/Intake and Output Vital Signs (last 24 hours): Temp Pulse Resp BP Pulse Ox 98.8 F 99 H 20 99/66 L 97 06/19/18 07:00 06/19/18 07:00 06/19/18 07:00 06/19/18 07:00 06/19/18 07:00 Intake and Output: 06/19/18 06/19/18 06:59 18:59 Intake Total 1000 Output Total 615 Balance 385 - Medications Medications: Current Medications Acetaminophen (Tylenol 650mg/20.3ml Solution Ud) 975 mg GT Q8 PRN PRN Reason: Pain, Mild (1-3) Last Admin: 06/16/18 09:25 Dose: 975 mg Bacitracin (Bacitracin) 2 ea TOP BID [facility] Stop: 06/19/18 18:01 Last Admin: 06/19/18 10:42 Dose: 2 ea Cholestyramine Resin (Questran) 4 gm PO BID [facility] Last Admin: 06/19/18 09:07 Dose: 4 gm Dextrose (Dextrose 50% Inj) 0 ml IV STAT PRN; Protocol PRN Reason: Hypoglycemia Protocol Last Admin: 05/16/18 23:40 Dose: 50 ml Dextrose (Glutose 15) 0 gm PO ONCE PRN; Protocol PRN Reason: Hypoglycemia Protocol Diphenhydramine HCl (Benadryl) 25 mg IVP QPM PRN PRN Reason: Insomnia Last Admin: 06/18/18 19:30 Dose: 25 mg Enoxaparin Sodium (Lovenox) 40 mg SC DAILY [facility] Last Admin: 06/19/18 09:08 Dose: 40 mg Ergocalciferol (Drisdol 50,000 Intl Units Cap) 1 cap PO Q7D [facility] Stop: 07/20/18 10:31 Last Admin: 06/15/18 10:40 Dose: 1 cap Escitalopram Oxalate (Lexapro) 10 mg GT DAILY [facility] Last Admin: 06/19/18 09:07 Dose: 10 mg Glucagon (Glucagen Diagnostic Kit) 0 mg IM STAT PRN; Protocol PRN Reason: Hypoglycemia Protocol Hydrocortisone (Cortizone 1% Cream) 0 gm TOP TID PRN PRN Reason: Rash Hydromorphone HCl (Dilaudid) 1.5 mg IVP Q3 PRN PRN Reason: Pain, SEVERE (8-10) Last Admin: 06/19/18 10:51 Dose: 1.5 mg Vancomycin HCl 1.5 gm/ Sodium (Chloride) 500 mls @ 333.333 mls/hr IVPB Q12H [facility] PRN Reason: Protocol Last Admin: 06/19/18 00:18 Dose: 333.333 mls/hr Insulin Human Regular (Novolin R) 0 unit SC Q6 [facility] PRN Reason: Protocol Last Admin: 06/19/18 06:20 Dose: Not Given Ipratropium [place] (Atrovent) 0.5 mg IH RQ6 [facility] Last Admin: 06/19/18 08:35 Dose: 0.5 mg Lactobacillus Acidophilus (Bacid Acidophilus) 1 cap PEG BID [facility] Last Admin: 06/19/18 09:07 Dose: 1 cap Loperamide HCl (Imodium) 1 mg PO Q2H PRN PRN Reason: Diarrhea Last Admin: 06/18/18 10:03 Dose: 1 mg Lorazepam (Ativan) 1 mg IVP BID [facility] Last Admin: 06/19/18 09:08 Dose: 1 mg Metoprolol Tartrate (Lopressor) 5 mg IVP Q6H [facility] Last Admin: 06/19/18 09:26 Dose: Not Given Nicotine (Nicoderm Cq) 1 patch TD DAILY [facility] Last Admin: 06/19/18 09:07 Dose: 1 patch Ondansetron HCl (Zofran Inj) 4 mg IVP Q6H PRN PRN Reason: Nausea/Vomiting Last Admin: 06/18/18 11:50 Dose: 4 mg Pantoprazole Sodium (Protonix Susp) 40 mg PO Q24H [facility] Last Admin: 06/19/18 09:08 Dose: 40 mg Saliva Substitute (Mouth Kote 236 Ml) 0 ml MM Q6 PRN PRN Reason: Dry mouth Vitamin A (Vitamin A & D Oint Ud Foilpak) 1 ea TOP Q8 PRN PRN Reason: dry lips Last Admin: 05/20/18 11:10 Dose: 1 ea Vitamin E (Vitamin E 400 Units Cap) 400 intlu GT DAILY [facility] Last Admin: 06/19/18 09:07 Dose: 400 intlu - Labs Labs: 06/19/18 07:06 06/19/18 07:06 PT 14.3 SECONDS (9.7-12.2) H 06/10/18 07:05 INR 1.3 06/10/18 07:05 APTT 33 SECONDS (21-34) 05/25/18 06:16 Attending/Attestation - Attestation I have fully participated in the care of the patient.: Yes I have reviewed all pertinent clinical information, including history, physical exam and plan: Yes Notes (Text): Pt is improving clinically Passing Gas and had BM DC NG tube Start liquid diet DC plan Plan d.w pt in detail
[2018-06-18] MEDS: Cholestyramine 4 gm/Pkt UD PO SCH ×2 (10:01→18:13)
[2018-06-18] MEDS: Enoxaparin 40 mg Syringe SC SCH (10:01)
[2018-06-18] MEDS: Lactobacillus Acidophilus 500 MU Cap PEG SCH ×2 (10:03→18:13)
[2018-06-18] MEDS: Loperamide Hydrochloride 1 mg/5 ml Cup PO PRN (10:03)
[2018-06-18] MEDS: Vancomycin 1.5 GM in Sodium Chloride 0.9% 500 ML IVPB SCH (13:00)
[2018-06-18] MEDS: DiphenhydrAMINE 50 mg/ml Inj IVP PRN (19:30)
[2018-06-19] MEDS: Vancomycin 1.5 GM in Sodium Chloride 0.9% 500 ML IVPB SCH ×2 (00:18→12:15)
[2018-06-19] MEDS: (Novolin R) Insulin Human Regular 100 units/ml vial SC SCH ×4 (00:20→17:08)
--- NOTE | 2018-06-19 01:33 | CP.PCM.PN ---
<Sarbjit Torres - Last Filed: 06/19/18 08:17> Subjective - Date & Time of Evaluation Date of Evaluation: 06/19/18 Time of Evaluation: 05:00 - Subjective Subjective: PGY-1 Medicine Progress Note for Dr. Denise Patient was seen and examined today at bedside in no acute distress. No overnight events reported. Patient remains clinically same. Patient states she has roughly 2-3 bowel movements a day (diarrhea). Patient states she has some tenderness on palpation on stomach but denies chest pain, shortness of breath, headache, cough, nausea, vomiting, numbness, tingling, fever, chills. Patient has no leaking from wound vac. Objective - Vital Signs/Intake and Output Vital Signs (last 24 hours): Temp Pulse Resp BP Pulse Ox 98.7 F 89 20 110/74 96 06/18/18 23:00 06/18/18 23:00 06/18/18 23:00 06/18/18 23:00 06/18/18 23:00 Intake and Output: 06/18/18 06/19/18 18:59 06:59 Intake Total 650 500 Output Total 1040 315 Balance -390 185 - Medications Medications: Current Medications Acetaminophen (Tylenol 650mg/20.3ml Solution Ud) 975 mg GT Q8 PRN PRN Reason: Pain, Mild (1-3) Last Admin: 06/16/18 09:25 Dose: 975 mg Cholestyramine Resin (Questran) 4 gm PO BID [facility] Last Admin: 06/18/18 18:13 Dose: 4 gm Dextrose (Dextrose 50% Inj) 0 ml IV STAT PRN; Protocol PRN Reason: Hypoglycemia Protocol Last Admin: 05/16/18 23:40 Dose: 50 ml Dextrose (Glutose 15) 0 gm PO ONCE PRN; Protocol PRN Reason: Hypoglycemia Protocol Diphenhydramine HCl (Benadryl) 25 mg IVP QPM PRN PRN Reason: Insomnia Last Admin: 06/18/18 19:30 Dose: 25 mg Enoxaparin Sodium (Lovenox) 40 mg SC DAILY [facility] Last Admin: 06/18/18 10:01 Dose: 40 mg Ergocalciferol (Drisdol 50,000 Intl Units Cap) 1 cap PO Q7D [facility] Stop: 07/20/18 10:31 Last Admin: 06/15/18 10:40 Dose: 1 cap Escitalopram Oxalate (Lexapro) 10 mg GT DAILY [facility] Last Admin: 06/18/18 10:03 Dose: 10 mg Glucagon (Glucagen Diagnostic Kit) 0 mg IM STAT PRN; Protocol PRN Reason: Hypoglycemia Protocol Hydrocortisone (Cortizone 1% Cream) 0 gm TOP TID PRN PRN Reason: Rash Hydromorphone HCl (Dilaudid) 1.5 mg IVP Q3 PRN PRN Reason: Pain, SEVERE (8-10) Last Admin: 06/18/18 22:35 Dose: 1.5 mg Metronidazole (Flagyl) 500 mg in 100 mls @ 100 mls/hr IVPB Q8H [facility] PRN Reason: Protocol Last Admin: 06/18/18 19:31 Dose: 100 mls/hr Vancomycin HCl 1.5 gm/ Sodium (Chloride) 500 mls @ 333.333 mls/hr IVPB Q12H [facility] PRN Reason: Protocol Last Admin: 06/19/18 00:18 Dose: 333.333 mls/hr Insulin Human Regular (Novolin R) 0 unit SC Q6 [facility] PRN Reason: Protocol Last Admin: 06/18/18 18:00 Dose: Not Given Ipratropium Boaz (Atrovent) 0.5 mg IH RQ6 [facility] Last Admin: 06/18/18 19:23 Dose: Not Given Lactobacillus Acidophilus (Bacid Acidophilus) 1 cap PEG BID [facility] Last Admin: 06/18/18 18:13 Dose: 1 cap Loperamide HCl (Imodium) 1 mg PO Q2H PRN PRN Reason: Diarrhea Last Admin: 06/18/18 10:03 Dose: 1 mg Lorazepam (Ativan) 1 mg IVP BID [facility] Last Admin: 06/18/18 18:13 Dose: 1 mg Metoprolol Tartrate (Lopressor) 5 mg IVP Q6H [facility] Last Admin: 06/18/18 22:42 Dose: 5 mg Nicotine (Nicoderm Cq) 1 patch TD DAILY [facility] Last Admin: 06/18/18 10:01 Dose: 1 patch Ondansetron HCl (Zofran Inj) 4 mg IVP Q6H PRN PRN Reason: Nausea/Vomiting Last Admin: 06/18/18 11:50 Dose: 4 mg Pantoprazole Sodium (Protonix Inj) 40 mg IVP Q24H [facility] Last Admin: 06/18/18 16:32 Dose: 40 mg Saliva Substitute (Mouth Kote 236 Ml) 0 ml MM Q6 PRN PRN Reason: Dry mouth Vitamin A (Vitamin A & D Oint Ud Foilpak) 1 ea TOP Q8 PRN PRN Reason: dry lips Last Admin: 05/20/18 11:10 Dose: 1 ea Vitamin E (Vitamin E 400 Units Cap) 400 intlu GT DAILY [facility] Last Admin: 06/18/18 10:40 Dose: 400 intlu - Labs Labs: 06/17/18 05:56 06/17/18 05:56 PT 14.3 SECONDS (9.7-12.2) H 06/10/18 07:05 INR 1.3 06/10/18 07:05 APTT 33 SECONDS (21-34) 05/25/18 06:16 - Head Exam Head Exam: ATRAUMATIC, NORMAL INSPECTION, NORMOCEPHALIC - Eye Exam Eye Exam: EOMI, Normal appearance - ENT Exam Additional comments: NGT in place, intermittent suction, suctioning well - GI/Abdominal Exam GI & Abdominal Exam: Soft, Tenderness, Normal Bowel Sounds. absent: Guarding, Rigid Additional comments: G tube in place Wound vac in place No erythema present - Extremities Exam Extremities Exam: Full ROM, Normal Inspection. 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 Harley (surgery) on the case Wound vac to continuous suction Following Bariatric surgeon (Dr. Mccray) recs-- Current recs no congregation of continuity operation until 5 weeks after 05/16 surgery Current drainage from mid-line incision possibly d/t leak of tube feed contents form around gastrostomy tube vs fistula -- would vac in place Repeat wound culture (06/13/18): Coag neg Staph, enterococcus raffinosus, Abx - cirpro to vancomyocin for coverage Cultures: Peritoneal Fluid (05/14/18): Pseudomonas Aeruginosa sensitive to Meropenem Wound Culture (05/23/18): Yudith Albicans Blood Culture (05/15/18, 05/22/18): no growth Urine Culture (05/22/18): no growth Incision Site (05/31/18): Enterococcus faecalis, Acinetobacter baumannii Stool Cultures (06/03/18): No salmonella, shigella, or campylobacteria isolates Repeat wound culture (06/13/18): Coag neg Staph, enterococcus raffinosus Antibiotics Continue Vancomycin 1gm IV Q12Hr (started 06/16 @ 12pm), goal vanc trough 15-20 Discontinued Cipro 400 mg IV q12hrs (started 06/02, last day 06/16/18) Continue Flagyl 500mg IVPB q8hrs (active since 05/15/18. day 31) Discontinued Meropenem 1gm IVPB q8hr (active since 05/15/18-05/27/18) Measure vitamin levels and replace as needed Vit D <12.8- vid D 50,000 unites q1wk x8 wks B12 707, wnl Folate 12.6, wnl Vit A 42, wnl Alpha Vit E 5.6, wnl Vit A, B1, B6, E levels reordered on 06/15. VitB1, B6 received-send out. Tabitha, E collected Medication: Continue Tylenol 975 mg liq q8hrs Continue Dilaudad 1.5mg IV q3hrs PRN Continue Zofran 4mg IV q6hrs PRN Tachycardia, persistent (110s-130s)- possibly etiologies include pain, infection , anxiety -She is being treated for Left G Tube fluid infection. -Continue Ativan PRN -Continue Dilaudid on board to be used PRN. -Continue Metoprolol tartrate 5mg IV q6hrs with holding parameters (SBP <100, HR <60) Diarrhea, acute, improving- suspect secondary to PO intake by pt -C.Diff (05/22, 05/24, 05/28): negative -Stool O&P (05/25/18): negative -Stool leukocytes (05/25/18): negative -per ID continue Flagyl due to leak around wound vac -Imodium 1mg PO Q2H PRN Anxiety -Director Of [employer] consulted- pt initially refused but then accepted -Psychiatry consulted (Dr. Reyez)- managing Ativan -Continue Ativan 1mg IV BID -Continue Lexapro 10mg GT daily (started 05/31) Insomnia - Discontinue, Benadryl 25 mg IVP HS PRN, clinically not indicated Anemia, acute, stable, pt denies blood in stool -Patient received a total of 2 PRBC (on 05/16) and 4 FFP (on 05/15 and 05/16) -Iron 16, TIBC 205, %sat 4.7, ferritin 75.3 -Monitor CBC Q2D Thrombocytosis, improving (504)- suspect reactive to pain, surgery- Resolved -Monitory CBC Q2D Diabetes Mellitus, Type 2- controlled -From prior note: Admittedly non-compliant, has not taken Januvia for one year -Accuchecks q6hrs -Hypoglycemic protocol -ISS regular -HbA1c 5.8 -History of gastric bypass surgery Hypercholesterolemia- untreated - LDL <30, HDL 23, Chol 59, TG 195 (06/03/18) - LDL 38, HDL 14, Chol 104, TG 226 (05/19/18) - History of gastric bypass surgery - Questran 4gm PO BID History of Hypertension, controlled- since gastric bypass has not taken meds -Metoprolol 5mg IV q6hrs History Obesity- Resolved -s/p gastric bypass surgery in 2013 History of Asthma- Chronic -Atrovent q6hrs Nicotine use disorder- Chronic - From prior note: 1ppd x 20 yrs, 1/2ppd x3 yrs - Continue Nicoderm 1 patch TD QD Electrolyte Imbalance: hypokalemia, hypomagnesemia - resolved - continue to monitor with AM labs, replete as needed Leukocytosis, trending downwards- likely secondary to ischemic bowel secondary to small bowel obstruction and surgeries- Resolved - Cultures: Peritoneal Fluid (05/14/18): Pseudomonas Aeruginosa sensitive to Meropenem Wound Culture (05/23/18): Yudith albicans Blood Culture (05/15/18, 05/22/18): no growth Urine Culture (05/22/18): no growth Wound Cx from incision site 05/31: Enterococcus faecalis, Acinetobacter baumanii, on ciprofloxacin 400mg (started 06/02) - Monitor CBC Q2D Prophylaxis -Hydrocortisone 1% Cream topical TID for Right Upper Inner Arm macular rash- improved -Vitamin A&D topical q8hrs PRN for dry lips -Saliva substitute q6hrs PRN for dry mouth -IVF: not indicated -VTE ppx: Lovenox 40mg SC daily, SCDs; encourage ambulation -GI ppx: Protonix 40mg IV BID, Florastor BID -Code status: full code Dispo: PT consulted- working with patient daily, rec home PT with services. Will stay at [facility] until bypass reversal surgery. Pending Dr. Mccray recs. will d/w Dr. Howie Torres PGY-1 <Franki Denise - Last Filed: 06/19/18 09:12> Objective - Vital Signs/Intake and Output Vital Signs (last 24 hours): Temp Pulse Resp BP Pulse Ox 98.8 F 99 H 20 99/66 L 97 06/19/18 07:00 06/19/18 07:00 06/19/18 07:00 06/19/18 07:00 06/19/18 07:00 Intake and Output: 06/19/18 06/19/18 06:59 18:59 Intake Total 1000 Output Total 615 Balance 385 - Medications Medications: Current Medications Acetaminophen (Tylenol 650mg/20.3ml Solution Ud) 975 mg GT Q8 PRN PRN Reason: Pain, Mild (1-3) Last Admin: 06/16/18 09:25 Dose: 975 mg Cholestyramine Resin (Questran) 4 gm PO BID [facility] Last Admin: 06/18/18 18:13 Dose: 4 gm Dextrose (Dextrose 50% Inj) 0 ml IV STAT PRN; Protocol PRN Reason: Hypoglycemia Protocol Last Admin: 05/16/18 23:40 Dose: 50 ml Dextrose (Glutose 15) 0 gm PO ONCE PRN; Protocol PRN Reason: Hypoglycemia Protocol Diphenhydramine HCl (Benadryl) 25 mg IVP QPM PRN PRN Reason: Insomnia Last Admin: 06/18/18 19:30 Dose: 25 mg Enoxaparin Sodium (Lovenox) 40 mg SC DAILY [facility] Last Admin: 06/18/18 10:01 Dose: 40 mg Ergocalciferol (Drisdol 50,000 Intl Units Cap) 1 cap PO Q7D [facility] Stop: 07/20/18 10:31 Last Admin: 06/15/18 10:40 Dose: 1 cap Escitalopram Oxalate (Lexapro) 10 mg GT DAILY [facility] Last Admin: 06/18/18 10:03 Dose: 10 mg Glucagon (Glucagen Diagnostic Kit) 0 mg IM STAT PRN; Protocol PRN Reason: Hypoglycemia Protocol Hydrocortisone (Cortizone 1% Cream) 0 gm TOP TID PRN PRN Reason: Rash Hydromorphone HCl (Dilaudid) 1.5 mg IVP Q3 PRN PRN Reason: Pain, SEVERE (8-10) Last Admin: 06/19/18 07:50 Dose: 1.5 mg Metronidazole (Flagyl) 500 mg in 100 mls @ 100 mls/hr IVPB Q8H [facility] PRN Reason: Protocol Last Admin: 06/19/18 04:34 Dose: 100 mls/hr Vancomycin HCl 1.5 gm/ Sodium (Chloride) 500 mls @ 333.333 mls/hr IVPB Q12H [facility] PRN Reason: Protocol Last Admin: 06/19/18 00:18 Dose: 333.333 mls/hr Insulin Human Regular (Novolin R) 0 unit SC Q6 [facility] PRN Reason: Protocol Last Admin: 06/19/18 06:20 Dose: Not Given Ipratropium Boaz (Atrovent) 0.5 mg IH RQ6 [facility] Last Admin: 06/19/18 08:35 Dose: 0.5 mg Lactobacillus Acidophilus (Bacid Acidophilus) 1 cap PEG BID [facility] Last Admin: 06/18/18 18:13 Dose: 1 cap Loperamide HCl (Imodium) 1 mg PO Q2H PRN PRN Reason: Diarrhea Last Admin: 06/18/18 10:03 Dose: 1 mg Lorazepam (Ativan) 1 mg IVP BID [facility] Last Admin: 06/18/18 18:13 Dose: 1 mg Metoprolol Tartrate (Lopressor) 5 mg IVP Q6H [facility] Last Admin: 06/19/18 04:24 Dose: 5 mg Nicotine (Nicoderm Cq) 1 patch TD DAILY [facility] Last Admin: 06/18/18 10:01 Dose: 1 patch Ondansetron HCl (Zofran Inj) 4 mg IVP Q6H PRN PRN Reason: Nausea/Vomiting Last Admin: 06/18/18 11:50 Dose: 4 mg Pantoprazole Sodium (Protonix Susp) 40 mg PO Q24H [facility] Saliva Substitute (Mouth Kote 236 Ml) 0 ml MM Q6 PRN PRN Reason: Dry mouth Vitamin A (Vitamin A & D Oint Ud Foilpak) 1 ea TOP Q8 PRN PRN Reason: dry lips Last Admin: 05/20/18 11:10 Dose: 1 ea Vitamin E (Vitamin E 400 Units Cap) 400 intlu GT DAILY [facility] Last Admin: 06/18/18 10:40 Dose: 400 intlu - Labs Labs: 06/19/18 07:06 06/19/18 07:06 PT 14.3 SECONDS (9.7-12.2) H 06/10/18 07:05 INR 1.3 06/10/18 07:05 APTT 33 SECONDS (21-34) 05/25/18 06:16 Attending/Attestation - Attestation I have personally seen and examined this patient.: Yes I have fully participated in the care of the patient.: Yes I have reviewed all pertinent clinical information, including history, physical exam and plan: Yes Notes (Text): 06/19/18 08:52 Patient was seen and examined at 8:40 AM 06/19/18 Upon FULL ROS: Nausea is less Bringing up less white phlegm Had two nonbloody/nonblack watery bowel movements yesterday evening and 1 this morning Pain in the abdominal are is controlled at the moment NO other complaints upon FULL ROS Exam: General: AAOX3, NAD, She is resting comfortably in bed and there is no indication of any pain HEENT: NGT in place via right nostril, NCA, PERRLA, EOMI, NO pharyngeal erythema /exudate, NO lymphadenopathy, NO thyromegaly Cardio: NS1 and NS2, NO M/R/G Resp: CTA B/L, NO R/R/W GI: Wound Vac in place with the superior aspect of ventral surgical incision site scarred over with no surrounding signs of cellulitis, G Tube in place in LUQ with no surrounding signs of cellulitis at insertion site with small amount of light yellow discharge, BS x 4 are present but reduced, NO distenion, Soft, Some mild tenderness to palpation in the bilateral lower quadrants but NO guarding/rebound tenderness Ext: NO edema, Capillary Refill is 2 seconds, Pulses are strong and equal, PICC Line in the Right Upper Arm with no signs of cellulitis at insertion site Neuro: CN II through XII are grossly intact Assessments: 1). Ischemic Bowel S/P Rue N Y Gastric Bypass with Surgical Wound Culture Positive for Acinetobacter and Enterococcus on 05/31/18 and Coagulase Neg Staph and Enterococcus on 06/13/18 2). Small Bowel Obstruction 3). Obesity 4). Asthma 5). DM 2 6). HTN 7). Hypothyroidism 8). HLD 9). Anxiety 10). KEM 11). Nicotine Addiction 12). Tachycardia 13). Low Vitamin D Currently on Vancomycin 1.5 gm IV Q12H for the positive surgical wound culture . Follow up Vancomycin Trough at 12:30 AM 06/20/18. Bacitracin topical ordered for G Tube insertion site Flagyl was discontinued Follow up repeat Vitamin B1, B6 which were reordered Vitamin A 06/01/18 normal at 42 Vitamin E 06/01/18 slightly low at 5.6 Pre Albumin 20.5 Awaiting surgery and Surgical Team to coordinate. Franki Denise D.O. 06/19/18 09:12
[2018-06-19] MEDS: Ipratropium 0.02% Inhal Soln (0.5 mg/2.5 ml) UD IH SCH ×4 (01:37→20:08)
[2018-06-19] MEDS: Metoprolol 1 mg/ml Inj IVP SCH ×4 (04:24→22:46)
[2018-06-19] MEDS: metroNIDAZOLE IV 500 mg/100 ml 500 MG/100 ML BAG IVPB SCH (04:34)
[2018-06-19 07:26] LABS: BASO # 0.1 K/uL (0.0-0.2); BASO % 0.6 % (0.0-2.0); EOS # 0.3 K/uL (0.0-0.7); EOS % 2.6 % (0.0-4.0); HEMOGLOBIN 8.7 g/dL (11.0-16.0); LYMPH # 1.9 K/uL (1.0-4.3); LYMPH % 19.6 % (20.0-40.0); MEAN CELL VOLUME 85.7 fL (81.0-99.0); MEAN CORPUSCULAR HEMOGLOBIN 27.8 pg (27.0-31.0); MEAN CORPUSCULAR HGB CONC 32.5 g/dL (33.0-37.0); MEAN PLATELET VOLUME 7.3 fL (7.2-11.7); MONO # 0.6 K/uL (0.0-0.8); MONO % 6.4 % (0.0-10.0); NEUT % 70.8 % (50.0-75.0); NRBC % 0.1 % (0.0-2.0); RBC 3.13 Mil/uL (3.80-5.20); RED CELL DISTRIBUTION WIDTH 18.2 % (11.5-14.5); WHITE BLOOD COUNT 9.9 K/uL (4.8-10.8)
[2018-06-19 07:40] LABS: ALB/GLOB RATIO 0.9 (1.0-2.1); ALBUMIN 2.6 g/dL (3.5-5.0); ALT/SGPT 20 U/L (9-52); AST/SGOT 16 U/L (14-36); BLOOD UREA NITROGEN 6 mg/dL (7-17); CALCIUM 8.2 mg/dl (8.6-10.4); GFR NON-AFRICAN AMERICAN > 60
[2018-06-19] MEDS ORDERED: Pantoprazole 40 mg EC Tab PO SCH (09:00)
[2018-06-19] MEDS: Lactobacillus Acidophilus 500 MU Cap PEG SCH ×2 (09:07→17:03)
[2018-06-19] MEDS: Cholestyramine 4 gm/Pkt UD PO SCH ×2 (09:07→17:03)
[2018-06-19] MEDS: Enoxaparin 40 mg Syringe SC SCH (09:08)
[2018-06-19] MEDS: Pantoprazole 40 mg Susp UD PO SCH (09:08)
[2018-06-19] MEDS ORDERED: Bacitracin 500 Units/gm Oint Foilpak UD TOP ONE (09:13)
[2018-06-19] MEDS: Bacitracin 500 Units/gm Oint Foilpak UD TOP SCH ×2 (10:42→17:42)
--- NOTE | 2018-06-19 19:30 | CP.PCM.PCO ---
Physician Communication Note - Physician Communication Note Physician Communication Note: Required CathFlo earlier to right arm PICC. Good blood return afterwards
[2018-06-19] MEDS: DiphenhydrAMINE 50 mg/ml Inj IVP PRN (19:51)
[2018-06-20] MEDS: Vancomycin 1.5 GM in Sodium Chloride 0.9% 500 ML IVPB SCH ×2 (00:38→12:17)
[2018-06-20] MEDS: (Novolin R) Insulin Human Regular 100 units/ml vial SC SCH ×4 (00:45→18:27)
[2018-06-20] MEDS: Ipratropium 0.02% Inhal Soln (0.5 mg/2.5 ml) UD IH SCH ×3 (03:05→13:50)
[2018-06-20] MEDS: Metoprolol 1 mg/ml Inj IVP SCH ×2 (04:30→10:13)
--- NOTE | 2018-06-20 07:34 | CP.PCM.PN ---
<Doretha Turk V - Last Filed: 06/20/18 15:20> Objective - Vital Signs/Intake and Output Vital Signs (last 24 hours): Temp Pulse Resp BP Pulse Ox 99.0 F 90 18 108/73 97 06/20/18 07:00 06/20/18 07:00 06/20/18 07:00 06/20/18 07:00 06/20/18 07:00 Intake and Output: 06/20/18 06/20/18 06:59 18:59 Intake Total 500 Output Total 1555 Balance -1055 - Medications Medications: Current Medications Acetaminophen (Tylenol 650mg/20.3ml Solution Ud) 975 mg GT Q8 PRN PRN Reason: Pain, Mild (1-3) Last Admin: 06/16/18 09:25 Dose: 975 mg Cholestyramine Resin (Questran) 4 gm PO BID [facility] Last Admin: 06/20/18 10:14 Dose: 4 gm Dextrose (Dextrose 50% Inj) 0 ml IV STAT PRN; Protocol PRN Reason: Hypoglycemia Protocol Last Admin: 05/16/18 23:40 Dose: 50 ml Dextrose (Glutose 15) 0 gm PO ONCE PRN; Protocol PRN Reason: Hypoglycemia Protocol Enoxaparin Sodium (Lovenox) 40 mg SC DAILY [facility] Last Admin: 06/20/18 10:14 Dose: 40 mg Ergocalciferol (Drisdol 50,000 Intl Units Cap) 1 cap PO Q7D [facility] Stop: 07/20/18 10:31 Last Admin: 06/15/18 10:40 Dose: 1 cap Escitalopram Oxalate (Lexapro) 10 mg GT DAILY [facility] Last Admin: 06/20/18 10:14 Dose: 10 mg Glucagon (Glucagen Diagnostic Kit) 0 mg IM STAT PRN; Protocol PRN Reason: Hypoglycemia Protocol Hydrocortisone (Cortizone 1% Cream) 0 gm TOP TID PRN PRN Reason: Rash Hydromorphone HCl (Dilaudid) 1 mg IVP Q3 PRN PRN Reason: Pain, SEVERE (8-10) Last Admin: 06/20/18 13:54 Dose: 1 mg Vancomycin HCl 1.5 gm/ Sodium (Chloride) 500 mls @ 333.333 mls/hr IVPB Q12H KATELYN PRN Reason: Protocol Last Admin: 06/20/18 12:17 Dose: 333.333 mls/hr Insulin Human Regular (Novolin R) 0 unit SC Q6 KATELYN PRN Reason: Protocol Last Admin: 06/20/18 12:18 Dose: Not Given Ipratropium [place] (Atrovent) 0.5 mg IH RQ6 [facility] Last Admin: 06/20/18 13:50 Dose: Not Given Lactobacillus Acidophilus (Bacid Acidophilus) 1 cap PEG BID [facility] Last Admin: 06/20/18 10:13 Dose: 1 cap Loperamide HCl (Imodium) 1 mg PO Q2H PRN PRN Reason: Diarrhea Last Admin: 06/18/18 10:03 Dose: 1 mg Lorazepam (Ativan) 1 mg IVP BID [facility] Last Admin: 06/20/18 10:13 Dose: 1 mg Metoprolol Tartrate (Lopressor) 5 mg IVP Q6H [facility] Last Admin: 06/20/18 10:13 Dose: 5 mg Nicotine (Nicoderm Cq) 1 patch TD DAILY [facility] Last Admin: 06/20/18 10:13 Dose: 1 patch Ondansetron HCl (Zofran Inj) 4 mg IVP Q6H PRN PRN Reason: Nausea/Vomiting Last Admin: 06/18/18 11:50 Dose: 4 mg Pantoprazole Sodium (Protonix Susp) 40 mg PO Q24H [facility] Last Admin: 06/20/18 10:14 Dose: 40 mg Saliva Substitute (Mouth Kote 236 Ml) 0 ml MM Q6 PRN PRN Reason: Dry mouth Vitamin A (Vitamin A & D Oint Ud Foilpak) 1 ea TOP Q8 PRN PRN Reason: dry lips Last Admin: 05/20/18 11:10 Dose: 1 ea Vitamin E (Vitamin E 400 Units Cap) 400 intlu GT DAILY [facility] Last Admin: 06/20/18 10:14 Dose: 400 intlu - Labs Labs: 06/19/18 07:06 06/19/18 07:06 PT 14.3 SECONDS (9.7-12.2) H 06/10/18 07:05 INR 1.3 06/10/18 07:05 APTT 33 SECONDS (21-34) 05/25/18 06:16 Assessment and Plan (1) Ischemic bowel disease Status: Acute (2) Obesity (BMI 30-39.9) Status: Acute (3) Small bowel obstruction Status: Acute (4) Prophylactic measure Status: Acute Attending/Attestation - Attestation I have personally seen and examined this patient.: Yes I have fully participated in the care of the patient.: Yes I have reviewed all pertinent clinical information, including history, physical exam and plan: Yes Notes (Text): Patient seen, examined and case discussed with day-time resident. Patient seen this morning. Patient reports diarrhea, is about twice overnight. Patient is very comfortable on exam. Patient is not in acute distress. Patient' s actual wound vac was changed by surgery this morning. patient reports she is due for menstruation some time this week; reports last time on May 19. Patient is aware that we will need to taper her off the Dilaudid; will start from 1.5mg to 1mg IV Q3H. patient is awaiting vitamin B1 and Vitamin B6 levels; I will speak with the lab again today since these are send out tests. Vitamin B6: 11.1 (normal) and Vitamin B1: 93 from June 01. Chemistry will send via fax to the floor for copy for the chart. We will repeat iron studies and consult heme-oncology to see if we can start iron replete since patient is also being treated for abdominal wound infection. Assessment/Plan (1) Ischemic bowel disease Assessment & Plan: * Dr. Harley (surgery) on the case-->help appreciated * Preoperative/intraoperative/postoperative management per surgery * Following Bariatric surgeon (Dr. Mccray) to determine reversal bariatric surgery * Continue wound vac to suction-->replaced today * Continue tube feeds for nutrition * Continue NGT to intermittent suction * Continue antibiotics, PRN pain medications * Dr. Alvarado (GI) on the case-->help appreciated * Dr. Rivera (ID) on the case-->help appreciated * Brief summary of: * Patient has had 2 bloody bowel movements started 05/14/18. Patient's rectal: blood. She had reported abdominal pain has worsening since night of admission. Patient required emergent surgical intervention on 05/14/18 and transferred to ICU. Per operative note (05/14/18): Diagnostic laparoscopy, Exploratory laparotomy , Reduction of internal hernia, Lysis of adhesions, Drainage of abdominal collections, temporary abdominal closure, EGD * Ischemia of yenni limb, internal hernia. [place] drain stitched to distal common limb * Patient underwent surgery again on 05/16/18.Re-exploration, Small bowel resection of ileum, small bowel resection of Yenni limb with gastrojejunostomy, reversal of bypass, primary anastomosis of ileum-ileum, ileum-ileum, and ileum- jejunum, Gastrostomy tube in bypassed stomach, EGD. Patient extubated 05/16/18. Patient is pending surgery intervention to restore GI motility in 5 weeks pending nutritional status. Measure vitamin levels and replace as needed * Vit D <12.8- vit D 50,000 units q1wk x8 wks * Prealbumin 18.1 * B12 707 * Folate 12.6 * Vitamin A: 42 * Vitamin E: 5.6 (low)-->replete * Vitamin B6: 11.1 (normal) and Vitamin B1: 93 (from 06/01/18) * Drains included: NGT Tube in place, Ojeda in place of gastrostomy tube, left min removed 05/25/18; right min was removed 05/23/18; no ojeda; wound vac replaced on 06/20/18 * IV abx: * Flagyl 500mg IVPB Q8H (active since 05/15/18)- d/c * Cultures: * Peritoneal Fluid : Pseudomonas Aeruginosa sensitive to Meropenem (05/15-05/27) * Wound Culture (05/23): Yudith Albican--->Diflucan since 05/22/18 until 05/30/18 * Incision site 05/31: Enterococcus faecalis, Acinetobacter baumannii---> Ciprofloxacin 400mg IVPB Q12H (active since 06/03/18) * Incision site 06/13/18: Coagulase Neg Staph, Enterococcus Raffinosus--> Vancomcycin 1.5mg IVPB Q12H (active since 06/18/18; started on 06/16/18) * Blood culture (05/15/18): no growth after 5 days X2 * Blood culture (05/22/18): no growth after 5 days X2 * Urine culture: no growth * PRNS: * Tylenol 975 mg liq q8hrs * Dilaudid 1.5 mg IV q3hrs PRN-->Dilaudid 1mg IV Q3H PRN * Zofran 4mg IV q6hrs PRN * Ativan 1mg IV BID anxiety-->per psych * Diarrhea * Patient is Questran 4gm PO BID Status: Acute (2) Small bowel obstruction Assessment & Plan: * Secondary to hernia * Further details noted in #1 Status: Acute (3) Obesity (BMI 30-39.9) Assessment & Plan: * s/p gastric bypass surgery in 2013 * Operative note (2013): Yenni-en-Y gastric bypass surgery * Given nature of ischemic bowel affecting portioning of the gastric limb, she will need to wait at least 5 weeks to restoring GI motility when she is nutritionally optimized Status: Acute (4) Status post gastric bypass for obesity Assessment & Plan: * status post gastric bypass 2013 * Operative note (2013): Yenni-en-Y gastric bypass surgery * Patient noncomplaint with following up postoperative. Status: Acute (5) History of Asthma Assessment & Plan: * Patient not in acute exacerbation prior to OR * Atrovent Q6H (6) Diabetes Mellitus (Type 2); controlled Assessment & Plan: * From prior note: * Admittedly non-compliant - has not taken Januvia for one year * Accuchecks Q6H * Hypoglycemic protocol * HbA1c - 6.3 (03/10/17) * hgba1c: 5.8 * History of gastric bypass surgery (8) Hx of HTN (hypertension) Assessment & Plan: * Since Gastric Bypass has not taken meds (9) Hx of Hypothyroid Assessment & Plan: * From prior note: * Pt admits non-compliance (10) Hypercholesterolemia Assessment & Plan: * From prior note: * Pt not taking meds * LDL 138, HDL 67, Tchol 220, Trig 112 * History of gastric bypass surgery (11) Anxiety Assessment & Plan: * Psychiatry (Dr. 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 Assessment & Plan: * 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 and from my prior note from last hospitalization (13) Smoker Assessment & Plan: * From my prior note: 1ppd x 20 yrs, 1/2 ppd x 3 yrs * Nicoderm 1 patch TD patchy (14) Tachycardia Assessment & Plan: * Lopressor 5mg IVQ6H PRN HR>130s (15) Prophylactic measure Assessment & Plan: * Bacid Acidophilus 1 cap PEG BID * Lovenox 40mg subqdaily for DVT ppx * PICC line 06/01/18 * need cathflo given clogging; monitor * protonix 40mg IV Qdaily * Vitamin A&D ointment 1 each top Q8H * NGT Tube * IR exchange of Ojeda to 24 maori gauge 06/10/18 * Wound vac 06/20/18 replaced * Dressing changed * Feed orders: * Patient is currently on Osmolite via G Tube which has the following components. * MCT Oil (benefits in situations with malabsorption and is low residue) * 1440 calories; 70 gm protein; 914 ml free water * Should at any time the patient require TPN then we can try the following options: * 83 ml/hr: 2100 tete, 100 gm protein * 63 ml/hr: 1575 tete, 75 gm protein * 20% Intrilipid every other day with either one of the TPN rates mentioned above Status: Acute Disposition: Awaiting coordination from surgery and bariatric surgery for reversal since there is GI dysmotility. Patient is on vancomycin for abdominal wound infection since 06/16/18. Will f/u with heme to determine iron replacement in light of infection. <Tamia Romano - Last Filed: 06/20/18 16:28> Subjective - Date & Time of Evaluation Date of Evaluation: 06/20/18 Time of Evaluation: 07:28 - Subjective Subjective: PGY-1 Medicine Progress note for Dr. Turk Patient was seen and examined today at bedside in no acute distress. Nurse reports no overnight events. Patient denies any new complaints. She had 3 BM overnight and says the consistency is watery, unformed, and her new usual. The wound vac became clogged over the weekend and will be replaced this AM. NGT is still suctioning translucent brown material. Denies chest pain, shortness of breath, abdominal pain, fever, chills, nausea, vomiting. Objective - Vital Signs/Intake and Output Vital Signs (last 24 hours): Temp Pulse Resp BP Pulse Ox 98.7 F 89 20 114/82 95 06/20/18 04:50 06/20/18 04:50 06/20/18 04:50 06/20/18 04:50 09/10/18 04:50 Intake and Output: 06/20/18 06/20/18 06:59 18:59 Intake Total 500 Output Total 1555 Balance -1055 - Medications Medications: Current Medications Acetaminophen (Tylenol 650mg/20.3ml Solution Ud) 975 mg GT Q8 PRN PRN Reason: Pain, Mild (1-3) Last Admin: 06/16/18 09:25 Dose: 975 mg Cholestyramine Resin (Questran) 4 gm PO BID [facility] Last Admin: 06/19/18 17:03 Dose: 4 gm Dextrose (Dextrose 50% Inj) 0 ml IV STAT PRN; Protocol PRN Reason: Hypoglycemia Protocol Last Admin: 05/16/18 23:40 Dose: 50 ml Dextrose (Glutose 15) 0 gm PO ONCE PRN; Protocol PRN Reason: Hypoglycemia Protocol Diphenhydramine HCl (Benadryl) 25 mg IVP QPM PRN PRN Reason: Insomnia Last Admin: 06/19/18 19:51 Dose: 25 mg Enoxaparin Sodium (Lovenox) 40 mg SC DAILY [facility] Last Admin: 06/19/18 09:08 Dose: 40 mg Ergocalciferol (Drisdol 50,000 Intl Units Cap) 1 cap PO Q7D [facility] Stop: 07/20/18 10:31 Last Admin: 06/15/18 10:40 Dose: 1 cap Escitalopram Oxalate (Lexapro) 10 mg GT DAILY [facility] Last Admin: 06/19/18 09:07 Dose: 10 mg Glucagon (Glucagen Diagnostic Kit) 0 mg IM STAT PRN; Protocol PRN Reason: Hypoglycemia Protocol Hydrocortisone (Cortizone 1% Cream) 0 gm TOP TID PRN PRN Reason: Rash Hydromorphone HCl (Dilaudid) 1.5 mg IVP Q3 PRN PRN Reason: Pain, SEVERE (8-10) Last Admin: 06/20/18 04:46 Dose: 1.5 mg Vancomycin HCl 1.5 gm/ Sodium (Chloride) 500 mls @ 333.333 mls/hr IVPB Q12H KATELYN PRN Reason: Protocol Last Admin: 06/20/18 00:38 Dose: 333.333 mls/hr Insulin Human Regular (Novolin R) 0 unit SC Q6 KATELYN PRN Reason: Protocol Last Admin: 06/20/18 06:05 Dose: Not Given Ipratropium [place] (Atrovent) 0.5 mg IH RQ6 [facility] Last Admin: 06/20/18 03:05 Dose: Not Given Lactobacillus Acidophilus (Bacid Acidophilus) 1 cap PEG BID [facility] Last Admin: 06/19/18 17:03 Dose: 1 cap Loperamide HCl (Imodium) 1 mg PO Q2H PRN PRN Reason: Diarrhea Last Admin: 06/18/18 10:03 Dose: 1 mg Lorazepam (Ativan) 1 mg IVP BID [facility] Last Admin: 06/19/18 17:03 Dose: 1 mg Metoprolol Tartrate (Lopressor) 5 mg IVP Q6H [facility] Last Admin: 06/20/18 04:30 Dose: 5 mg Nicotine (Nicoderm Cq) 1 patch TD DAILY [facility] Last Admin: 06/19/18 09:07 Dose: 1 patch Ondansetron HCl (Zofran Inj) 4 mg IVP Q6H PRN PRN Reason: Nausea/Vomiting Last Admin: 06/18/18 11:50 Dose: 4 mg Pantoprazole Sodium (Protonix Susp) 40 mg PO Q24H [facility] Last Admin: 06/19/18 09:08 Dose: 40 mg Saliva Substitute (Mouth Kote 236 Ml) 0 ml MM Q6 PRN PRN Reason: Dry mouth Vitamin A (Vitamin A & D Oint Ud Foilpak) 1 ea TOP Q8 PRN PRN Reason: dry lips Last Admin: 05/20/18 11:10 Dose: 1 ea Vitamin E (Vitamin E 400 Units Cap) 400 intlu GT DAILY [facility] Last Admin: 06/19/18 09:07 Dose: 400 intlu - Labs Labs: 06/19/18 07:06 06/19/18 07:06 PT 14.3 SECONDS (9.7-12.2) H 06/10/18 07:05 INR 1.3 06/10/18 07:05 APTT 33 SECONDS (21-34) 05/25/18 06:16 - Constitutional Appears: Non-toxic, No Acute Distress - Head Exam Head Exam: ATRAUMATIC, NORMOCEPHALIC - Eye Exam Eye Exam: EOMI, Normal appearance - ENT Exam ENT Exam: Mucous Membranes Moist, Normal Exam Additional comments: NGT in place, intermittent suction - Respiratory Exam Respiratory Exam: Clear to Ausculation Bilateral, NORMAL BREATHING PATTERN. absent: Rales, Rhonchi, Wheezes - Cardiovascular Exam Cardiovascular Exam: Tachycardia, REGULAR RHYTHM, +S1, +S2 - GI/Abdominal Exam GI & Abdominal Exam: Soft, Normal Bowel Sounds. absent: Firm, Guarding, Rigid, Tenderness Additional comments: midline abdominal incision healing well. Wound vac covering air seal intact, tubing clear, vac to be changed this AM secondary to clog. Gtube in place, flushing well - dressings c/d/i - Extremities Exam Extremities Exam: Full ROM, Normal Capillary Refill Additional comments: peripheral pulses palpable bilaterally (radial, DP, PT) R PICC line in place - Neurological Exam Neurological Exam: Alert, Awake, Normal Gait, Oriented x3 - Psychiatric Exam Psychiatric exam: Normal Affect, Normal Mood - Skin Skin Exam: Dry, Intact, Normal Color Assessment and Plan - Assessment and Plan (Free Text) Assessment: 38F with a PMH of HTN, HLD, DM2, asthma s/p bowel resection (05/14, 05/16) 2/2 internal hernia s/p Yenni-en-Y gastric bypass in 2013 admitted for medical optimization prior to reversal of bypass Plan: Ischemic bowel disease secondary to internal hernias producing bowel obstruction Current Management: - Current drains include: NGT (have on intermittent suction per surgery), gastrostomy tube (replaced 06/10), wound vac replaced again today 06/16 - Repeat wound culture (06/13/18): Coag neg Staph, enterococcus raffinosus, Abx - sensative to vancomyocin - D/C cipro, start vanco 1g Q12 - 06/18 Vanc troph 6.7, ideal range 15- 20, adjusted vanc to 1.5g q12 (first dose 06/18 13:00) - repeat vanc trough 06/20 @ 12:30AM 10.2 - repeat vanc trough 06/22 @ 12:05AM (30 mins prior to 8th dose) - surgical plan to replace wound vac later this AM - Dr. Harley (surgery) on the case Wound vac to continuous suction Following Bariatric surgeon (Dr. Mccray) recs-- Current recs no jew of continuity operation until 5 weeks after 05/16 surgery Current drainage from mid-line incision possibly d/t leak of tube feed contents form around gastrostomy tube vs fistula -- would vac in place Repeat wound culture (06/13/18): Coag neg Staph, enterococcus raffinosus, Abx - cirpro to vancomyocin for coverage Cultures: Peritoneal Fluid (05/14/18): Pseudomonas Aeruginosa sensitive to Meropenem Wound Culture (05/23/18): Yudith Albicans Blood Culture (05/15/18, 05/22/18): no growth Urine Culture (05/22/18): no growth Incision Site (05/31/18): Enterococcus faecalis, Acinetobacter baumannii Stool Cultures (06/03/18): No salmonella, shigella, or campylobacteria isolates Repeat wound culture (06/13/18): Coag neg Staph, enterococcus raffinosus Antibiotics Continue Vancomycin 1gm IV Q12Hr (started 06/16 @ 12pm), goal vanc trough 15-20 Discontinued Cipro 400 mg IV q12hrs (started 06/02, last day 06/16/18) Completed Flagyl 500mg IVPB q8hrs (active since 05/15/18-06/19/18) Discontinued Meropenem 1gm IVPB q8hr (active since 05/15/18-05/27/18) Measure vitamin levels and replace as needed Vit D <12.8- vid D 50,000 unites q1wk x8 wks B12 707, wnl Folate 12.6, wnl Vit A 42, wnl Alpha Vit E 5.6, wnl Vit A, B1, B6, E levels reordered on 06/15. - VitB1: inapproapriately submitted, will reorder - VitB6: 5.9, wnl - Tabitha, E collected Medication: Continue Tylenol 975 mg liq q8hrs Continue Dilaudad 1.5mg IV q3hrs PRN Continue Zofran 4mg IV q6hrs PRN Tachycardia, persistent (110s-130s)- possibly etiologies include pain, infection , anxiety -She is being treated for Left G Tube fluid infection. -Continue Ativan PRN -Continue Dilaudid on board to be used PRN. -Continue Metoprolol tartrate 5mg IV q6hrs with holding parameters (SBP <100, HR <60) Diarrhea, acute, improving- suspect secondary to PO intake by pt -C.Diff (05/22, 05/24, 05/28): negative -Stool O&P (05/25/18): negative -Stool leukocytes (05/25/18): negative -per ID continue Flagyl due to leak around wound vac -Imodium 1mg PO Q2H PRN Anxiety -Template Storage Clerk consulted- pt initially refused but then accepted -Psychiatry consulted (Dr. Reyez)- managing Ativan -Continue Ativan 1mg IV BID -Continue Lexapro 10mg GT daily (started 05/31) Insomnia - Discontinue, Benadryl 25 mg IVP HS PRN, clinically not indicated Anemia, acute, stable, pt denies blood in stool -Patient received a total of 2 PRBC (on 05/16) and 4 FFP (on 05/15 and 05/16) -Iron 16, TIBC 205, %sat 4.7, ferritin 75.3 -Monitor CBC Q2D Thrombocytosis, improving (504)- suspect reactive to pain, surgery- Resolved -Monitory CBC Q2D Diabetes Mellitus, Type 2- controlled -From prior note: Admittedly non-compliant, has not taken Januvia for one year -Accuchecks q6hrs -Hypoglycemic protocol -ISS regular -HbA1c 5.8 -History of gastric bypass surgery Hypercholesterolemia- untreated - LDL <30, HDL 23, Chol 59, TG 195 (06/03/18) - LDL 38, HDL 14, Chol 104, TG 226 (05/19/18) - History of gastric bypass surgery - Questran 4gm PO BID History of Hypertension, controlled- since gastric bypass has not taken meds -Metoprolol 5mg IV q6hrs History Obesity- Resolved -s/p gastric bypass surgery in 2013 History of Asthma- Chronic -Atrovent q6hrs Nicotine use disorder- Chronic - From prior note: 1ppd x 20 yrs, 1/2ppd x3 yrs - Continue Nicoderm 1 patch TD QD Electrolyte Imbalance: hypokalemia, hypomagnesemia - resolved - continue to monitor with AM labs, replete as needed Leukocytosis, trending downwards- likely secondary to ischemic bowel secondary to small bowel obstruction and surgeries- Resolved - Cultures: Peritoneal Fluid (05/14/18): Pseudomonas Aeruginosa sensitive to Meropenem Wound Culture (05/23/18): Yudith albicans Blood Culture (05/15/18, 05/22/18): no growth Urine Culture (05/22/18): no growth Wound Cx from incision site 05/31: Enterococcus faecalis, Acinetobacter baumanii, on ciprofloxacin 400mg (started 06/02) - Monitor CBC Q2D Prophylaxis -Hydrocortisone 1% Cream topical TID for Right Upper Inner Arm macular rash- improved -Vitamin A&D topical q8hrs PRN for dry lips -Saliva substitute q6hrs PRN for dry mouth -IVF: not indicated -VTE ppx: Lovenox 40mg SC daily, SCDs; encourage ambulation -GI ppx: Protonix 40mg IV BID, Florastor BID -Code status: full code Dispo: PT consulted- working with patient daily, rec home PT with services. Will stay at [facility] until bypass reversal surgery. Pending Dr. Mccray recs. d/w Dr. Burke Romano PGY-1
--- NOTE | 2018-06-20 07:53 | CP.PCM.PN ---
<Jose MariaOscar - Last Filed: 06/20/18 07:50> Subjective - Date & Time of Evaluation Date of Evaluation: 06/20/18 Time of Evaluation: 07:50 - Subjective Subjective: Surgery Pt seen and examined. Wound vac clogged over the weekend. Vac changed this AM. Tolerated it well. Reports BM. Denies nausea, vomiting. Tolerating tube feeds. Objective - Vital Signs/Intake and Output Vital Signs (last 24 hours): Temp Pulse Resp BP Pulse Ox 98.7 F 89 20 114/82 95 06/20/18 04:50 06/20/18 04:50 06/20/18 04:50 06/20/18 04:50 06/20/18 04:50 Intake and Output: 06/20/18 06/20/18 06:59 18:59 Intake Total 500 Output Total 1555 Balance -1055 - Medications Medications: Current Medications Acetaminophen (Tylenol 650mg/20.3ml Solution Ud) 975 mg GT Q8 PRN PRN Reason: Pain, Mild (1-3) Last Admin: 06/16/18 09:25 Dose: 975 mg Cholestyramine Resin (Questran) 4 gm PO BID [facility]N Last Admin: 06/19/18 17:03 Dose: 4 gm Dextrose (Dextrose 50% Inj) 0 ml IV STAT PRN; Protocol PRN Reason: Hypoglycemia Protocol Last Admin: 05/16/18 23:40 Dose: 50 ml Dextrose (Glutose 15) 0 gm PO ONCE PRN; Protocol PRN Reason: Hypoglycemia Protocol Diphenhydramine HCl (Benadryl) 25 mg IVP QPM PRN PRN Reason: Insomnia Last Admin: 06/19/18 19:51 Dose: 25 mg Enoxaparin Sodium (Lovenox) 40 mg SC DAILY [facility] Last Admin: 06/19/18 09:08 Dose: 40 mg Ergocalciferol (Drisdol 50,000 Intl Units Cap) 1 cap PO Q7D [facility] Stop: 07/20/18 10:31 Last Admin: 06/15/18 10:40 Dose: 1 cap Escitalopram Oxalate (Lexapro) 10 mg GT DAILY [facility] Last Admin: 06/19/18 09:07 Dose: 10 mg Glucagon (Glucagen Diagnostic Kit) 0 mg IM STAT PRN; Protocol PRN Reason: Hypoglycemia Protocol Hydrocortisone (Cortizone 1% Cream) 0 gm TOP TID PRN PRN Reason: Rash Hydromorphone HCl (Dilaudid) 1.5 mg IVP Q3 PRN PRN Reason: Pain, SEVERE (8-10) Last Admin: 06/20/18 07:41 Dose: 1.5 mg Vancomycin HCl 1.5 gm/ Sodium (Chloride) 500 mls @ 333.333 mls/hr IVPB Q12H [facility] PRN Reason: Protocol Last Admin: 06/20/18 00:38 Dose: 333.333 mls/hr Insulin Human Regular (Novolin R) 0 unit SC Q6 [facility]N PRN Reason: Protocol Last Admin: 06/20/18 06:05 Dose: Not Given Ipratropium [place] (Atrovent) 0.5 mg IH RQ6 [facility] Last Admin: 06/20/18 03:05 Dose: Not Given Lactobacillus Acidophilus (Bacid Acidophilus) 1 cap PEG BID [facility] Last Admin: 06/19/18 17:03 Dose: 1 cap Loperamide HCl (Imodium) 1 mg PO Q2H PRN PRN Reason: Diarrhea Last Admin: 06/18/18 10:03 Dose: 1 mg Lorazepam (Ativan) 1 mg IVP BID [facility] Last Admin: 06/19/18 17:03 Dose: 1 mg Metoprolol Tartrate (Lopressor) 5 mg IVP Q6H [facility] Last Admin: 06/20/18 04:30 Dose: 5 mg Nicotine (Nicoderm Cq) 1 patch TD DAILY [facility] Last Admin: 06/19/18 09:07 Dose: 1 patch Ondansetron HCl (Zofran Inj) 4 mg IVP Q6H PRN PRN Reason: Nausea/Vomiting Last Admin: 06/18/18 11:50 Dose: 4 mg Pantoprazole Sodium (Protonix Susp) 40 mg PO Q24H [facility] Last Admin: 06/19/18 09:08 Dose: 40 mg Saliva Substitute (Mouth Kote 236 Ml) 0 ml MM Q6 PRN PRN Reason: Dry mouth Vitamin A (Vitamin A & D Oint Ud Foilpak) 1 ea TOP Q8 PRN PRN Reason: dry lips Last Admin: 05/20/18 11:10 Dose: 1 ea Vitamin E (Vitamin E 400 Units Cap) 400 intlu GT DAILY [facility] Last Admin: 06/19/18 09:07 Dose: 400 intlu - Labs Labs: 06/19/18 07:06 06/19/18 07:06 PT 14.3 SECONDS (9.7-12.2) H 06/10/18 07:05 INR 1.3 06/10/18 07:05 APTT 33 SECONDS (21-34) 05/25/18 06:16 - Constitutional Appears: No Acute Distress - Head Exam Head Exam: ATRAUMATIC, NORMAL INSPECTION, NORMOCEPHALIC - Eye Exam Eye Exam: EOMI, Normal appearance, PERRL Pupil Exam: NORMAL ACCOMODATION, PERRL - ENT Exam ENT Exam: Mucous Membranes Moist, Normal Exam Additional comments: NGT in place. 50cc saliva/24hrs - Neck Exam Neck Exam: Full ROM, Normal Inspection. absent: Lymphadenopathy - Respiratory Exam Respiratory Exam: NORMAL BREATHING PATTERN - Cardiovascular Exam Cardiovascular Exam: REGULAR RHYTHM - GI/Abdominal Exam GI & Abdominal Exam: Soft, Normal Bowel Sounds. absent: Distended, Tenderness Additional comments: umbilical draining white fluids. Wound vac in place. MInimal output in vac. PEG in place. Tube feed. - Extremities Exam Extremities Exam: Full ROM - Back Exam Back Exam: NORMAL INSPECTION - Neurological Exam Neurological Exam: Alert, Awake, CN II-XII Intact, Normal Gait, Oriented x3 - Psychiatric Exam Psychiatric exam: Normal Affect, Normal Mood - Skin Skin Exam: Normal Color, Warm. absent: Dry, Intact Assessment and Plan - Assessment and Plan (Free Text) Assessment: 38F s/p Binta-en-Y gastric bypass (2013) w/bowel ischemic 2/2 internal hernia POD#33 s/p ex lap, reduction of internal hernia, DANNI, drainage of abdominal collections, temporary abdominal closure & EGD POD#29 s/p re-exploration, resection of ileum & Binta limb including previous gastrojejunostomy, reversal of bypass, primary anastomosis of ileum-ileum, ileum -ileum, and ileum-jejunum. Gastrostomy tube in bypassed stomach, EGD Wound vac in place over midline incision Plan: Monitor wound vac output Plan to change wound vac on 06/23 Monitor NGT output NGT to low-intermittent wall suction Cont Tube feed FU labs OOBTC Ambulate with assistance Encourage IS use Will plan appropriate date for surgery w/Dr. Mahendra Harley <Gómez Harley - Last Filed: 06/26/18 13:29> Objective - Vital Signs/Intake and Output Vital Signs (last 24 hours): Temp Pulse Resp BP Pulse Ox 97.9 F 80 18 114/79 97 06/26/18 07:00 06/26/18 07:00 06/26/18 07:00 06/26/18 07:00 06/26/18 07:00 Intake and Output: 06/26/18 06/26/18 06:59 18:59 Intake Total 1100 800 Output Total 170 Balance 930 800 - Medications Medications: Current Medications Acetaminophen (Tylenol 650mg/20.3ml Solution Ud) 975 mg GT Q8H PRN PRN Reason: Pain, Mild (1-3) Last Admin: 06/25/18 18:42 Dose: 975 mg Calcium Acetate (Phoslo) 667 mg GT TIDCC [facility] Last Admin: 06/26/18 11:02 Dose: 667 mg Cholestyramine Resin (Questran) 4 gm PO BID [facility] Last Admin: 06/26/18 10:10 Dose: 4 gm Dextrose (Dextrose 50% Inj) 0 ml IV STAT PRN; Protocol PRN Reason: Hypoglycemia Protocol Dextrose (Glutose 15) 0 gm PO ONCE PRN; Protocol PRN Reason: Hypoglycemia Protocol Enoxaparin Sodium (Lovenox) 40 mg SC DAILY [facility] Last Admin: 06/26/18 09:53 Dose: 40 mg Ergocalciferol (Drisdol 50,000 Intl Units Cap) 1 cap PO Q7D [facility] Stop: 07/20/18 10:01 Escitalopram Oxalate (Lexapro) 10 mg GT DAILY [facility] Last Admin: 06/26/18 10:57 Dose: 10 mg Gentamicin Sulfate (Gentamicin 0.1%) 0 gm TOP TID [facility] Glucagon (Glucagen Diagnostic Kit) 0 mg IM STAT PRN; Protocol PRN Reason: Hypoglycemia Protocol Hydrocortisone (Cortizone 1% Cream) 0 gm TOP TID PRN PRN Reason: Rash Hydromorphone HCl (Dilaudid) 1 mg IVP Q3 PRN PRN Reason: Pain, SEVERE (8-10) Last Admin: 06/26/18 12:48 Dose: 1 mg Ferric Sodium Gluconate Complex 125 mg/ Sodium Chloride 110 mls @ 100 mls/hr IVPB Q24H [facility] Stop: 06/29/18 14:31 Last Admin: 06/25/18 14:56 Dose: 100 mls/hr Vancomycin HCl 1,500 mg/ (Sodium Chloride) 500 mls @ 166.6 mls/hr IVPB Q12H [facility] PRN Reason: Protocol Last Admin: 06/26/18 04:45 Dose: 166.6 mls/hr Meropenem 1 gm/ Sodium (Chloride) 100 mls @ 100 mls/hr IVPB Q8H [facility] PRN Reason: Protocol Last Admin: 06/26/18 08:11 Dose: 100 mls/hr Insulin Human Regular (Novolin R) 0 unit SC Q6 [facility] PRN Reason: Protocol Last Admin: 06/26/18 11:33 Dose: Not Given Ipratropium [place] (Atrovent) 0.5 mg IH RQ6 [facility] Last Admin: 06/26/18 07:56 Dose: Not Given Lactobacillus Acidophilus (Bacid Acidophilus) 1 cap PEG BID [facility] Last Admin: 06/26/18 10:57 Dose: 1 cap Loperamide HCl (Imodium) 1 mg PO Q2H PRN PRN Reason: Diarrhea Last Admin: 06/26/18 09:56 Dose: 1 mg Lorazepam (Ativan) 1 mg IVP BID [facility] Last Admin: 06/26/18 10:57 Dose: 1 mg Metoprolol Tartrate (Lopressor) 12.5 mg PEG BID [facility] Last Admin: 06/26/18 09:54 Dose: 12.5 mg Nicotine (Nicoderm Cq) 1 patch TD DAILY [facility] Last Admin: 06/26/18 09:53 Dose: 1 patch Ondansetron HCl (Zofran Inj) 4 mg IVP Q6H PRN PRN Reason: Nausea/Vomiting Last Admin: 06/26/18 10:01 Dose: 4 mg Pantoprazole Sodium (Protonix Susp) 40 mg PO Q24H [facility] Last Admin: 06/26/18 09:53 Dose: 40 mg Saliva Substitute (Mouth Kote 236 Ml) 0 ml MM Q6 PRN PRN Reason: Dry mouth Vitamin A (Vitamin A & D Oint Ud Foilpak) 1 ea TOP Q8 PRN PRN Reason: dry lips Vitamin E (Vitamin E 400 Units Cap) 400 intlu GT DAILY [facility] Last Admin: 06/26/18 09:54 Dose: 400 intlu - Labs Labs: 06/26/18 04:55 06/26/18 04:55 PT 14.3 SECONDS (9.7-12.2) H 06/10/18 07:05 INR 1.3 06/10/18 07:05 APTT 33 SECONDS (21-34) 05/25/18 06:16 Attending/Attestation - Attestation I have personally seen and examined this patient.: Yes I have fully participated in the care of the patient.: Yes I have reviewed all pertinent clinical information, including history, physical exam and plan: Yes Notes (Text): Pt was seen and examined at bedside Agree with above note and assessment Pt is same clinically Wound vac change c.w current mx Plan d.w pt in detail Risk and benefit explained in detail.
[2018-06-20] MEDS: Lactobacillus Acidophilus 500 MU Cap PEG SCH ×2 (10:13→18:26)
[2018-06-20] MEDS: Pantoprazole 40 mg Susp UD PO SCH (10:14)
[2018-06-20] MEDS: Cholestyramine 4 gm/Pkt UD PO SCH ×2 (10:14→18:28)
[2018-06-20] MEDS: Enoxaparin 40 mg Syringe SC SCH (10:14)
[2018-06-20] MEDS: HYDROmorphone 1 mg/ml ISec IVP PRN ×3 (13:54→21:05)
--- NOTE | 2018-06-20 20:04 | CP.PCM.PN ---
Subjective - Date & Time of Evaluation Date of Evaluation: 06/20/18 Time of Evaluation: 12:20 - Subjective Subjective: dictated Objective - Vital Signs/Intake and Output Vital Signs (last 24 hours): Temp Pulse Resp BP Pulse Ox 99.1 F 101 H 20 125/85 98 06/20/18 15:00 06/20/18 18:00 06/20/18 15:00 06/20/18 18:00 06/20/18 15:00 Intake and Output: 06/20/18 06/21/18 18:59 06:59 Intake Total 350 Output Total 825 Balance -475 - Medications Medications: Current Medications Acetaminophen (Tylenol 650mg/20.3ml Solution Ud) 975 mg GT Q8 PRN PRN Reason: Pain, Mild (1-3) Last Admin: 06/16/18 09:25 Dose: 975 mg Cholestyramine Resin (Questran) 4 gm PO BID [facility] Last Admin: 06/20/18 18:28 Dose: 4 gm Dextrose (Dextrose 50% Inj) 0 ml IV STAT PRN; Protocol PRN Reason: Hypoglycemia Protocol Last Admin: 05/16/18 23:40 Dose: 50 ml Dextrose (Glutose 15) 0 gm PO ONCE PRN; Protocol PRN Reason: Hypoglycemia Protocol Enoxaparin Sodium (Lovenox) 40 mg SC DAILY [facility] Last Admin: 06/20/18 10:14 Dose: 40 mg Ergocalciferol (Drisdol 50,000 Intl Units Cap) 1 cap PO Q7D [facility] Stop: 07/20/18 10:31 Last Admin: 06/15/18 10:40 Dose: 1 cap Escitalopram Oxalate (Lexapro) 10 mg GT DAILY [facility] Last Admin: 06/20/18 10:14 Dose: 10 mg Glucagon (Glucagen Diagnostic Kit) 0 mg IM STAT PRN; Protocol PRN Reason: Hypoglycemia Protocol Hydrocortisone (Cortizone 1% Cream) 0 gm TOP TID PRN PRN Reason: Rash Hydromorphone HCl (Dilaudid) 1 mg IVP Q3 PRN PRN Reason: Pain, SEVERE (8-10) Last Admin: 06/20/18 16:56 Dose: 1 mg Vancomycin HCl 1.5 gm/ Sodium (Chloride) 500 mls @ 333.333 mls/hr IVPB Q12H [facility] PRN Reason: Protocol Last Admin: 06/20/18 12:17 Dose: 333.333 mls/hr Insulin Human Regular (Novolin R) 0 unit SC Q6 [facility] PRN Reason: Protocol Last Admin: 06/20/18 18:27 Dose: Not Given Ipratropium [place] (Atrovent) 0.5 mg IH RQ6 [facility] Last Admin: 06/20/18 13:50 Dose: Not Given Lactobacillus Acidophilus (Bacid Acidophilus) 1 cap PEG BID [facility] Last Admin: 06/20/18 18:26 Dose: 1 cap Loperamide HCl (Imodium) 1 mg PO Q2H PRN PRN Reason: Diarrhea Last Admin: 06/18/18 10:03 Dose: 1 mg Lorazepam (Ativan) 1 mg IVP BID [facility] Last Admin: 06/20/18 18:26 Dose: 1 mg Metoprolol Tartrate (Lopressor) 12.5 mg PEG BID [facility] Last Admin: 06/20/18 18:28 Dose: 12.5 mg Nicotine (Nicoderm Cq) 1 patch TD DAILY [facility] Last Admin: 06/20/18 10:13 Dose: 1 patch Ondansetron HCl (Zofran Inj) 4 mg IVP Q6H PRN PRN Reason: Nausea/Vomiting Last Admin: 06/18/18 11:50 Dose: 4 mg Pantoprazole Sodium (Protonix Susp) 40 mg PO Q24H [facility] Last Admin: 06/20/18 10:14 Dose: 40 mg Saliva Substitute (Mouth Kote 236 Ml) 0 ml MM Q6 PRN PRN Reason: Dry mouth Vitamin A (Vitamin A & D Oint Ud Foilpak) 1 ea TOP Q8 PRN PRN Reason: dry lips Last Admin: 05/20/18 11:10 Dose: 1 ea Vitamin E (Vitamin E 400 Units Cap) 400 intlu GT DAILY [facility] Last Admin: 06/20/18 10:14 Dose: 400 intlu - Labs Labs: 06/19/18 07:06 06/19/18 07:06 PT 14.3 SECONDS (9.7-12.2) H 06/10/18 07:05 INR 1.3 06/10/18 07:05 APTT 33 SECONDS (21-34) 05/25/18 06:16
[2018-06-20] MEDS ORDERED: DiphenhydrAMINE 12.5 mg/5 ml LIQ UD (5 ml) PEG ONE (21:46)
[2018-06-21] MEDS: HYDROmorphone 1 mg/ml ISec IVP PRN ×7 (00:06→21:59)
[2018-06-21] MEDS: Vancomycin 1.5 GM in Sodium Chloride 0.9% 500 ML IVPB SCH ×2 (00:13→16:07)
[2018-06-21] MEDS: (Novolin R) Insulin Human Regular 100 units/ml vial SC SCH ×4 (00:15→18:21)
--- NOTE | 2018-06-21 00:29 | PN ---
DATE: 06/20/2018 SUBJECTIVE: The patient was awake and alert lying in bed. She has still NG tube and she remains afebrile. She has been getting feedings through the jejunostomy tube. PHYSICAL EXAMINATION: VITAL SIGNS: T-max is 99.1, heart rate of 102, blood pressure 122/83, respirations are 20. HEENT: Head is atraumatic, normocephalic. NG tube present. LUNGS: Clear. HEART: S1, S2 are regular. ABDOMEN: Has this wound VAC and the size of the wound VAC dressing is decreasing now, much improved and she also has jejunostomy tube. EXTREMITIES: Have no edema. LABORATORY DATA: White count is 9.9, hemoglobin 8.7, hematocrit 26.8, platelet count is 355. This patient's wound culture last came out Enterococcus raffinosus and was also coagulase-negative staph, so they have started her on vancomycin now and there is no more gram-negative Acinetobacter, so we will continue with vancomycin. Discontinue the Flagyl at this time and dressings are getting smaller with the wound VAC and we will continue to follow. IMPRESSION: She came in with ischemic colitis and she had a gastrectomy for weight loss in the past and so she has a complicated procedure and they did twice debridement and she needs another surgery to reconnect her gastrointestinal tract. Guero Rivera MD
[2018-06-21] MEDS: Ipratropium 0.02% Inhal Soln (0.5 mg/2.5 ml) UD IH SCH ×4 (01:02→19:41)
[2018-06-21 07:00] LABS: BASO # 0.1 K/uL (0.0-0.2); BASO % 0.8 % (0.0-2.0); EOS # 0.3 K/uL (0.0-0.7); EOS % 3.1 % (0.0-4.0); HEMOGLOBIN 8.4 g/dL (11.0-16.0); LYMPH # 2.1 K/uL (1.0-4.3); MEAN CELL VOLUME 85.1 fL (81.0-99.0); MEAN CORPUSCULAR HGB CONC 32.9 g/dL (33.0-37.0); MEAN PLATELET VOLUME 7.5 fL (7.2-11.7); MONO # 0.6 K/uL (0.0-0.8); MONO % 6.6 % (0.0-10.0); NEUT # 5.3 K/uL (1.8-7.0); NEUT % 64.5 % (50.0-75.0); NRBC % 0.1 % (0.0-2.0); RBC 2.99 Mil/uL (3.80-5.20); RED CELL DISTRIBUTION WIDTH 17.6 % (11.5-14.5); WHITE BLOOD COUNT 8.3 K/uL (4.8-10.8)
--- NOTE | 2018-06-21 07:52 | CP.PCM.PN ---
<Tamia Romano - Last Filed: 06/21/18 16:17> Subjective - Date & Time of Evaluation Date of Evaluation: 06/21/18 Time of Evaluation: 07:52 - Subjective Subjective: PGY-1 Medicine Progress Note for Dr. Turk Patient was seen and examined today at bedside in no acute distress. Nursing reports no overnight events. Patient reports 4 episodes of BM, watery, loose. Pain is tolerable on decreased pain regimen. Wound vac sponge replaced, suctioning well. NGT is still suctioning over 300ml of material in a 24 hour period. Denies chest pain, shortness of breath, abdominal pain, fever, chills, nausea, vomiting. Objective - Vital Signs/Intake and Output Vital Signs (last 24 hours): Temp Pulse Resp BP Pulse Ox 98.6 F 92 H 20 106/68 98 06/20/18 23:05 06/20/18 23:05 06/20/18 23:05 06/20/18 23:05 06/20/18 23:05 Intake and Output: 06/21/18 06/21/18 06:59 18:59 Output Total 500 Balance -500 - Medications Medications: Current Medications Acetaminophen (Tylenol 650mg/20.3ml Solution Ud) 975 mg GT Q8 PRN PRN Reason: Pain, Mild (1-3) Last Admin: 06/16/18 09:25 Dose: 975 mg Cholestyramine Resin (Questran) 4 gm PO BID [facility] Last Admin: 06/20/18 18:28 Dose: 4 gm Dextrose (Dextrose 50% Inj) 0 ml IV STAT PRN; Protocol PRN Reason: Hypoglycemia Protocol Last Admin: 05/16/18 23:40 Dose: 50 ml Dextrose (Glutose 15) 0 gm PO ONCE PRN; Protocol PRN Reason: Hypoglycemia Protocol Enoxaparin Sodium (Lovenox) 40 mg SC DAILY [facility] Last Admin: 06/20/18 10:14 Dose: 40 mg Ergocalciferol (Drisdol 50,000 Intl Units Cap) 1 cap PO Q7D [facility] Stop: 07/20/18 10:31 Last Admin: 06/15/18 10:40 Dose: 1 cap Escitalopram Oxalate (Lexapro) 10 mg GT DAILY [facility] Last Admin: 06/20/18 10:14 Dose: 10 mg Glucagon (Glucagen Diagnostic Kit) 0 mg IM STAT PRN; Protocol PRN Reason: Hypoglycemia Protocol Hydrocortisone (Cortizone 1% Cream) 0 gm TOP TID PRN PRN Reason: Rash Hydromorphone HCl (Dilaudid) 1 mg IVP Q3 PRN PRN Reason: Pain, SEVERE (8-10) Last Admin: 06/21/18 06:07 Dose: 1 mg Vancomycin HCl 1.5 gm/ Sodium (Chloride) 500 mls @ 333.333 mls/hr IVPB Q12H KATELYN PRN Reason: Protocol Last Admin: 06/21/18 00:13 Dose: 333.333 mls/hr Insulin Human Regular (Novolin R) 0 unit SC Q6 KATELYN PRN Reason: Protocol Last Admin: 06/21/18 06:00 Dose: Not Given Ipratropium [place] (Atrovent) 0.5 mg IH RQ6 [facility] Last Admin: 06/21/18 07:26 Dose: 0.5 mg Lactobacillus Acidophilus (Bacid Acidophilus) 1 cap PEG BID [facility] Last Admin: 06/20/18 18:26 Dose: 1 cap Loperamide HCl (Imodium) 1 mg PO Q2H PRN PRN Reason: Diarrhea Last Admin: 06/18/18 10:03 Dose: 1 mg Lorazepam (Ativan) 1 mg IVP BID [facility] Last Admin: 06/20/18 18:26 Dose: 1 mg Metoprolol Tartrate (Lopressor) 12.5 mg PEG BID [facility] Last Admin: 06/20/18 18:28 Dose: 12.5 mg Nicotine (Nicoderm Cq) 1 patch TD DAILY [facility] Last Admin: 06/20/18 10:13 Dose: 1 patch Ondansetron HCl (Zofran Inj) 4 mg IVP Q6H PRN PRN Reason: Nausea/Vomiting Last Admin: 06/20/18 22:45 Dose: 4 mg Pantoprazole Sodium (Protonix Susp) 40 mg PO Q24H [facility] Last Admin: 06/20/18 10:14 Dose: 40 mg Saliva Substitute (Mouth Kote 236 Ml) 0 ml MM Q6 PRN PRN Reason: Dry mouth Vitamin A (Vitamin A & D Oint Ud Foilpak) 1 ea TOP Q8 PRN PRN Reason: dry lips Last Admin: 05/20/18 11:10 Dose: 1 ea Vitamin E (Vitamin E 400 Units Cap) 400 intlu GT DAILY [facility] Last Admin: 06/20/18 10:14 Dose: 400 intlu - Labs Labs: 06/21/18 06:52 06/19/18 07:06 PT 14.3 SECONDS (9.7-12.2) H 06/10/18 07:05 INR 1.3 06/10/18 07:05 APTT 33 SECONDS (21-34) 05/25/18 06:16 - Constitutional Appears: Non-toxic, No Acute Distress, Chronically Ill - Head Exam Head Exam: ATRAUMATIC, NORMOCEPHALIC - Eye Exam Eye Exam: EOMI, Normal appearance - ENT Exam ENT Exam: Mucous Membranes Moist, Normal Exam Additional comments: NGT in place, intermittent suction - Respiratory Exam Respiratory Exam: Clear to Ausculation Bilateral, NORMAL BREATHING PATTERN. absent: Rales, Rhonchi, Wheezes - Cardiovascular Exam Cardiovascular Exam: REGULAR RHYTHM, +S1, +S2. absent: Gallop, Rubs, Murmur - GI/Abdominal Exam GI & Abdominal Exam: Soft, Normal Bowel Sounds. absent: Firm, Guarding Additional comments: midline abdominal incision healing well. Wound vac covering air seal intact, tubing clear Gtube in place, flushing well - dressings c/d/i - Extremities Exam Extremities Exam: Full ROM, Normal Capillary Refill Additional comments: peripheral pulses palpable bilaterally (radial, DP, PT) R PICC line in place - Neurological Exam Neurological Exam: Alert, Awake, Normal Gait, Oriented x3 - Psychiatric Exam Psychiatric exam: Normal Affect, Normal Mood - Skin Skin Exam: Intact, Normal Color, Warm Assessment and Plan - Assessment and Plan (Free Text) Assessment: 38F with a PMH of HTN, HLD, DM2, asthma s/p bowel resection (05/14, 05/16) 2/2 internal hernia s/p Yenni-en-Y gastric bypass in 2013 admitted for medical optimization prior to reversal of bypass Plan: Ischemic bowel disease secondary to internal hernias producing bowel obstruction Current Management: - Current drains include: NGT (have on intermittent suction per surgery), gastrostomy tube (replaced 06/10) - Repeat wound culture (06/13/18): Coag neg Staph, enterococcus raffinosus, Abx - sensative to vancomyocin - D/C cipro, start vanco 1g Q12 - 06/18 Vanc troph 6.7, ideal range 15- 20, adjusted vanc to 1.5g q12 (first dose 06/18 13:00) - repeat vanc trough 06/20 @ 12:30AM 10.2 - repeat vanc trough 06/22 @ 4:30AM (30 mins prior to 8th dose) - Dr. Harley (surgery) on the case Wound vac to continuous suction Following Bariatric surgeon (Dr. Mccray) recs-- Current recs no mu-ism of continuity operation until 5 weeks after 05/16 surgery Current drainage from mid-line incision possibly d/t leak of tube feed contents form around gastrostomy tube vs fistula -- would vac in place Repeat wound culture (06/13/18): Coag neg Staph, enterococcus raffinosus, Abx - cipro to vancomyocin for coverage - Heme consulted: Dr. Cash for Fe status - help appreciated Iron 17, TIBC 238, % sat 7, ferritin 14.5, pending retic count Cultures: Peritoneal Fluid (05/14/18): Pseudomonas Aeruginosa sensitive to Meropenem Wound Culture (05/23/18): Yudith Albicans Blood Culture (05/15/18, 05/22/18): no growth Urine Culture (05/22/18): no growth Incision Site (05/31/18): Enterococcus faecalis, Acinetobacter baumannii Stool Cultures (06/03/18): No salmonella, shigella, or campylobacteria isolates Repeat wound culture (06/13/18): Coag neg Staph, enterococcus raffinosus Antibiotics Continue Vancomycin 1gm IV Q12Hr (started 06/16 @ 12pm), goal vanc trough 15-20 Discontinued Cipro 400 mg IV q12hrs (started 06/02, last day 06/16/18) Completed Flagyl 500mg IVPB q8hrs (active since 05/15/18-06/19/18) Discontinued Meropenem 1gm IVPB q8hr (active since 05/15/18-05/27/18) Measure vitamin levels and replace as needed Vit D <12.8- vid D 50,000 unites q1wk x8 wks B12 707, wnl Folate 12.6, wnl Vit A 42, wnl Alpha Vit E 5.6, wnl Vit A, B1, B6, E levels reordered on 9/5. - VitB1: inappropriately submitted, 06/01 value acceptable - VitB6: 5.9, wnl - Tabitha, E collected Medication: Continue Tylenol 975 mg liq q8hrs Continue Dilaudad 1mg IV q3hrs PRN Continue Zofran 4mg IV q6hrs PRN Tachycardia, persistent (110s-130s)- possibly etiologies include pain, infection , anxiety -She is being treated for Left G Tube fluid infection. -Continue Ativan PRN -Continue Dilaudid on board to be used PRN. -Continue Metoprolol tartrate 5mg IV q6hrs with holding parameters (SBP <100, HR <60) Diarrhea, acute, improving- suspect secondary to PO intake by pt -C.Diff (05/22, 05/24, 05/28): negative -Stool O&P (05/25/18): negative -Stool leukocytes (05/25/18): negative -per ID continue Flagyl due to leak around wound vac -Imodium 1mg PO Q2H PRN Anxiety -[facility] consulted- pt initially refused but then accepted -Psychiatry consulted (Dr. Reyez)- managing Ativan -Continue Ativan 1mg IV BID -Continue Lexapro 10mg GT daily (started 05/31) Insomnia - Discontinue, Benadryl 25 mg IVP HS PRN, clinically not indicated Anemia, acute, stable, pt denies blood in stool -Patient received a total of 2 PRBC (on 05/16) and 4 FFP (on 05/15 and 05/16) -Iron 16, TIBC 205, %sat 4.7, ferritin 75.3 -Monitor CBC Q2D Thrombocytosis, improving (504)- suspect reactive to pain, surgery- Resolved -Monitory CBC Q2D Diabetes Mellitus, Type 2- controlled -From prior note: Admittedly non-compliant, has not taken Januvia for one year -Accuchecks q6hrs -Hypoglycemic protocol -ISS regular -HbA1c 5.8 -History of gastric bypass surgery Hypercholesterolemia- untreated - LDL <30, HDL 23, Chol 59, TG 195 (06/03/18) - LDL 38, HDL 14, Chol 104, TG 226 (05/19/18) - History of gastric bypass surgery - Questran 4gm PO BID History of Hypertension, controlled- since gastric bypass has not taken meds -Metoprolol 5mg IV q6hrs History Obesity- Resolved -s/p gastric bypass surgery in 2013 History of Asthma- Chronic -Atrovent q6hrs Nicotine use disorder- Chronic - From prior note: 1ppd x 20 yrs, 1/2ppd x3 yrs - Continue Nicoderm 1 patch TD QD Electrolyte Imbalance: hypokalemia, hypomagnesemia - resolved - continue to monitor with AM labs, replete as needed Leukocytosis, trending downwards- likely secondary to ischemic bowel secondary to small bowel obstruction and surgeries- Resolved - Cultures: Peritoneal Fluid (05/14/18): Pseudomonas Aeruginosa sensitive to Meropenem Wound Culture (05/23/18): Yudith albicans Blood Culture (05/15/18, 05/22/18): no growth Urine Culture (05/22/18): no growth Wound Cx from incision site 05/31: Enterococcus faecalis, Acinetobacter baumanii, on ciprofloxacin 400mg (started 06/02) - Monitor CBC Q2D Prophylaxis -Hydrocortisone 1% Cream topical TID for Right Upper Inner Arm macular rash- improved -Vitamin A&D topical q8hrs PRN for dry lips -Saliva substitute q6hrs PRN for dry mouth -IVF: not indicated -VTE ppx: Lovenox 40mg SC daily, SCDs; encourage ambulation -GI ppx: Protonix 40mg IV BID, Florastor BID -Code status: full code Dispo: PT consulted- working with patient daily, rec home PT with services. Will stay at [facility] [place] until bypass reversal surgery. Pending Dr. Mccray recs. d/w Dr. Burke Romano PGY-1 <Doretha Turk V - Last Filed: 06/21/18 21:37> Objective - Vital Signs/Intake and Output Vital Signs (last 24 hours): Temp Pulse Resp BP Pulse Ox 98.6 F 88 20 111/77 98 06/21/18 15:28 06/21/18 15:28 06/21/18 15:28 06/21/18 15:28 06/21/18 15:28 Intake and Output: 06/21/18 06/22/18 18:59 06:59 Intake Total 100 Output Total 300 Balance -200 - Medications Medications: Current Medications Acetaminophen (Tylenol 650mg/20.3ml Solution Ud) 975 mg GT Q8 PRN PRN Reason: Pain, Mild (1-3) Last Admin: 06/21/18 18:29 Dose: 975 mg Cholestyramine Resin (Questran) 4 gm PO BID [facility] Last Admin: 06/21/18 18:31 Dose: 4 gm Dextrose (Dextrose 50% Inj) 0 ml IV STAT PRN; Protocol PRN Reason: Hypoglycemia Protocol Last Admin: 05/16/18 23:40 Dose: 50 ml Dextrose (Glutose 15) 0 gm PO ONCE PRN; Protocol PRN Reason: Hypoglycemia Protocol Enoxaparin Sodium (Lovenox) 40 mg SC DAILY [facility] Last Admin: 06/21/18 09:59 Dose: 40 mg Ergocalciferol (Drisdol 50,000 Intl Units Cap) 1 cap PO Q7D [facility] Stop: 07/20/18 10:31 Last Admin: 06/15/18 10:40 Dose: 1 cap Escitalopram Oxalate (Lexapro) 10 mg GT DAILY [facility] Last Admin: 06/21/18 10:02 Dose: 10 mg Glucagon (Glucagen Diagnostic Kit) 0 mg IM STAT PRN; Protocol PRN Reason: Hypoglycemia Protocol Hydrocortisone (Cortizone 1% Cream) 0 gm TOP TID PRN PRN Reason: Rash Hydromorphone HCl (Dilaudid) 1 mg IVP Q3 PRN PRN Reason: Pain, SEVERE (8-10) Last Admin: 06/21/18 18:58 Dose: 1 mg Ferric Sodium Gluconate Complex 125 mg/ Sodium Chloride 110 mls @ 100 mls/hr IVPB Q24H [facility] Stop: 06/29/18 14:31 Last Admin: 06/21/18 14:48 Dose: 100 mls/hr Vancomycin HCl 1,500 mg/ (Sodium Chloride) 500 mls @ 166.6 mls/hr IVPB Q12H KATELYN PRN Reason: Protocol Last Admin: 06/21/18 18:25 Dose: 166.6 mls/hr Insulin Human Regular (Novolin R) 0 unit SC Q6 KATELYN PRN Reason: Protocol Last Admin: 06/21/18 18:21 Dose: Not Given Ipratropium [place] (Atrovent) 0.5 mg IH RQ6 [facility] Last Admin: 06/21/18 19:41 Dose: 0.5 mg Lactobacillus Acidophilus (Bacid Acidophilus) 1 cap PEG BID [facility] Last Admin: 06/21/18 18:31 Dose: 1 cap Loperamide HCl (Imodium) 1 mg PO Q2H PRN PRN Reason: Diarrhea Last Admin: 06/18/18 10:03 Dose: 1 mg Lorazepam (Ativan) 1 mg IVP BID [facility] Last Admin: 06/21/18 18:21 Dose: 1 mg Metoprolol Tartrate (Lopressor) 12.5 mg PEG BID [facility] Last Admin: 06/21/18 18:29 Dose: 12.5 mg Nicotine (Nicoderm Cq) 1 patch TD DAILY [facility] Last Admin: 06/21/18 09:59 Dose: 1 patch Ondansetron HCl (Zofran Inj) 4 mg IVP Q6H PRN PRN Reason: Nausea/Vomiting Last Admin: 06/21/18 09:47 Dose: 4 mg Pantoprazole Sodium (Protonix Susp) 40 mg PO Q24H [facility] Last Admin: 06/21/18 09:58 Dose: 40 mg Saliva Substitute (Mouth Kote 236 Ml) 0 ml MM Q6 PRN PRN Reason: Dry mouth Vitamin A (Vitamin A & D Oint Ud Foilpak) 1 ea TOP Q8 PRN PRN Reason: dry lips Last Admin: 05/20/18 11:10 Dose: 1 ea Vitamin E (Vitamin E 400 Units Cap) 400 intlu GT DAILY [facility] Last Admin: 06/21/18 10:01 Dose: 400 intlu - Labs Labs: 06/21/18 06:52 06/21/18 06:52 PT 14.3 SECONDS (9.7-12.2) H 06/10/18 07:05 INR 1.3 06/10/18 07:05 APTT 33 SECONDS (21-34) 05/25/18 06:16 Assessment and Plan (1) Ischemic bowel disease Status: Acute (2) Obesity (BMI 30-39.9) Status: Acute (3) Small bowel obstruction Status: Acute (4) Prophylactic measure Status: Acute Attending/Attestation - Attestation I have personally seen and examined this patient.: Yes I have fully participated in the care of the patient.: Yes I have reviewed all pertinent clinical information, including history, physical exam and plan: Yes Notes (Text): Patient seen, examined and case discussed with day-time resident. Patient seen this morning. Patient reports diarrhea, is about four times overnight. Patient is very comfortable on exam. Patient is not in acute distress. Patient's actual wound dressing was changed by surgery this morning. Surgery wound appears to healing well. patient reports she is due for menstruation some time this week; reports last time on May 19. Patient is aware that we will need to taper her off the Dilaudid; will started from 1.5mg to 1mg IV Q3H. Patient understands why she needs to be tapered given there is a level of opiod dependence she has. patient is awaiting vitamin B1 and Vitamin B6 levels; I will speak with the lab again today since these are send out tests. We have repeat iron studies, reti, ferritin, patient has been seen and evaluated by heme-oncology, agree with for IV iron supplementation. Assessment/Plan (1) Ischemic bowel disease Assessment & Plan: * Dr. Harley (surgery) on the case-->help appreciated * Preoperative/intraoperative/postoperative management per surgery * Following Bariatric surgeon (Dr. Mccray) to determine reversal bariatric surgery * Continue wound vac to suction-->replaced today * Continue tube feeds for nutrition * Continue NGT to intermittent suction * Continue antibiotics, PRN pain medications * Dr. Alvarado (GI) on the case-->help appreciated * Dr. Rivera (ID) on the case-->help appreciated * Brief summary of: * Patient has had 2 bloody bowel movements started 05/14/18. Patient's rectal: blood. She had reported abdominal pain has worsening since night of admission. Patient required emergent surgical intervention on 05/14/18 and transferred to ICU. Per operative note (05/14/18): Diagnostic laparoscopy, Exploratory laparotomy , Reduction of internal hernia, Lysis of adhesions, Drainage of abdominal collections, temporary abdominal closure, EGD * Ischemia of yenni limb, internal hernia. [place] drain stitched to distal common limb * Patient underwent surgery again on 05/16/18.Re-exploration, Small bowel resection of ileum, small bowel resection of Yenni limb with gastrojejunostomy, reversal of bypass, primary anastomosis of ileum-ileum, ileum-ileum, and ileum- jejunum, Gastrostomy tube in bypassed stomach, EGD. Patient extubated 05/16/18. Patient is pending surgery intervention to restore GI motility in 5 weeks pending nutritional status. Measure vitamin levels and replace as needed * Vit D <12.8- vit D 50,000 units q1wk x8 wks * Prealbumin 18.1 * B12 707 * Folate 12.6 * Vitamin A: 42 * Vitamin E: 5.6 (low)-->replete * Vitamin B6: 11.1 (normal) and Vitamin B1: 93 (from 06/01/18) * Drains included: NGT Tube in place, Ojeda in place of gastrostomy tube, left min removed 05/25/18; right min was removed 05/23/18; no ojeda; wound vac replaced on 06/20/18 * IV abx: * Flagyl 500mg IVPB Q8H (active since 05/15/18)- discontinued * Cultures: * Peritoneal Fluid : Pseudomonas Aeruginosa sensitive to Meropenem (05/15-05/27) * Wound Culture (05/23): Yudith Albican--->Diflucan since 05/22/18 until 05/30/18 * Incision site 05/31: Enterococcus faecalis, Acinetobacter baumannii---> Ciprofloxacin 400mg IVPB Q12H (active since 06/03/18) * Incision site 06/13/18: Coagulase Neg Staph, Enterococcus Raffinosus--> Vancomcycin 1.5mg IVPB Q12H (active since 06/18/18; started on 06/16/18) pending vancomycin trough in AM * Blood culture (05/15/18): no growth after 5 days X2 * Blood culture (05/22/18): no growth after 5 days X2 * Urine culture: no growth * PRNS: * Tylenol 975 mg liq q8hrs * Dilaudid 1.5 mg IV q3hrs PRN-->Dilaudid 1mg IV Q3H PRN * Zofran 4mg IV q6hrs PRN * Ativan 1mg IV BID anxiety-->per psych * Diarrhea * Patient is Questran 4gm PO BID Status: Acute (2) Small bowel obstruction Assessment & Plan: * Secondary to hernia * Further details noted in #1 Status: Acute (3) Obesity (BMI 30-39.9) Assessment & Plan: * s/p gastric bypass surgery in 2013 * Operative note (2013): Yenni-en-Y gastric bypass surgery * Given nature of ischemic bowel affecting portioning of the gastric limb, she will need to wait at least 5 weeks to restoring GI motility when she is nutritionally optimized Status: Acute (4) Status post gastric bypass for obesity Assessment & Plan: * status post gastric bypass 2013 * Operative note (2013): Yenni-en-Y gastric bypass surgery * Patient noncomplaint with following up postoperative. Status: Acute (5) History of Asthma Assessment & Plan: * Patient not in acute exacerbation prior to OR * Atrovent Q6H (6) Diabetes Mellitus (Type 2); controlled Assessment & Plan: * From prior note: * Admittedly non-compliant - has not taken Januvia for one year * Accuchecks Q6H * Hypoglycemic protocol * HbA1c - 6.3 (03/10/17) * hgba1c: 5.8 * History of gastric bypass surgery (8) Hx of HTN (hypertension) Assessment & Plan: * Since Gastric Bypass has not taken meds (9) Hx of Hypothyroid Assessment & Plan: * From prior note: * Pt admits non-compliance (10) Hypercholesterolemia Assessment & Plan: * From prior note: * Pt not taking meds * LDL 138, HDL 67, Tchol 220, Trig 112 * History of gastric bypass surgery (11) Anxiety Assessment & Plan: * Psychiatry (Dr. 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 Assessment & Plan: * 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 and from my prior note from last hospitalization (13) Smoker Assessment & Plan: * From my prior note: 1ppd x 20 yrs, 1/2 ppd x 3 yrs * Nicoderm 1 patch TD patchy (14) Tachycardia Assessment & Plan: * Lopressor 12.5mg PO BID (15) Prophylactic measure Assessment & Plan: * Bacid Acidophilus 1 cap PEG BID * Lovenox 40mg subqdaily for DVT ppx * PICC line 06/01/18 * need cathflo given clogging 06/19/18 * protonix 40mg IV Qdaily * Vitamin A&D ointment 1 each top Q8H * NGT Tube * IR exchange of Ojeda to 24 monegasque gauge 06/10/18 * Wound vac 06/20/18 replaced * Dressing changed per surgery * Feed orders: * Patient is currently on Osmolite via G Tube which has the following components. * MCT Oil (benefits in situations with malabsorption and is low residue) * 1440 calories; 70 gm protein; 914 ml free water * Should at any time the patient require TPN then we can try the following options: * 83 ml/hr: 2100 tete, 100 gm protein * 63 ml/hr: 1575 tete, 75 gm protein * 20% Intrilipid every other day with either one of the TPN rates mentioned above Status: Acute Disposition: Awaiting coordination from surgery and bariatric surgery for reversal since there is GI dysmotility. Patient is on vancomycin for abdominal wound infection since 06/16/18. Will f/u with heme to determine iron replacement in light of infection.
[2018-06-21 08:06] LABS: ALB/GLOB RATIO 0.9 (1.0-2.1); ALBUMIN 2.6 g/dL (3.5-5.0); ALT/SGPT 17 U/L (9-52); AST/SGOT 18 U/L (14-36); BLOOD UREA NITROGEN 4 mg/dL (7-17); CALCIUM 8.2 mg/dl (8.6-10.4); GFR NON-AFRICAN AMERICAN > 60
[2018-06-21] MEDS: Pantoprazole 40 mg Susp UD PO SCH (09:58)
[2018-06-21] MEDS: Enoxaparin 40 mg Syringe SC SCH (09:59)
[2018-06-21] MEDS: Cholestyramine 4 gm/Pkt UD PO SCH ×2 (10:00→18:31)
[2018-06-21] MEDS: Lactobacillus Acidophilus 500 MU Cap PEG SCH ×2 (10:02→18:31)
--- NOTE | 2018-06-21 10:54 | CP.PCM.CON ---
<Morris Connolly - Last Filed: 06/21/18 16:14> History of Present Illness - History of Present Illness History of Present Illness: Morris Connolly DO PGY-1, Clerk Manager Consult Note for Hematology/Oncology, Dr. Cash's Service This is a 38 y o female with PMHx chronic abd pain, and recurrent SBOs s/p gastric bypass (2013), asthma, HTN, HLD, DM2, who presented on 05/13/18 with severe abd pain x 1 day. Per chart review, pt presented with ischemic colitis, had hx Yenni-en-Y gastric bypass for weight loss in past, and had complicated procedure. Pt is s/p debridement x2, and needs additional surgery, as per surgical team, to reconnect GI tract; pt states that this surgical procedure will occur in about another week. Pt currently has NG tube in place, and is getting feedings from gastrostomy tube. Reason for consult was anemia, hx gastric bypass, and possible need for ferric-elt. Pt seen and examined at bedside today. States she is feeling a little nauseous, states Zofran has been helping with symptoms. Reports several episodes of watery diarrhea/day, but states that has been occurring since she was admitted. Admits to feeling fatigued, but otherwise denies any acute complaints. Denies headache, fever, chills, chest pain, shortness of breath, vomiting, constipation, urinary complaints, or other symptoms. Pt denied any hx of being dx with anemia prior to hospital admission or hx of taking iron supplements in the past. PMhx: Chronic abd pain, recurrent SBOs, asthma, HTN, HLD, DM2 PSurghx: Yenni-en-Y gastric bypass in 2013; s/p dx laparoscopy, ex-lap, reduction of internal hernia, lysis of adhesions, drainage of abd collections, temporary abd closure + EGD on 05/14/18; s/p re-exploration, small bowel resection of ileum, small bowel resection of Yenni limb with gastrojejunostomy, reversal of bypass, primary anastomosis of ileum-ileum, ileum-ileum, and ileum- jejunum, gastrostomy tube and EGD on 05/16/18. Allergies: Moxifloxacin Current meds: Tylenol 975 mg GT q8h prn, Cholestyramine 4 g PO bid, Lovenox 40 mg subQ qd, Ergocalciferol q7d, Lexapro 10 mg GT qd, Hydrocortisone 1% cream, Atrovent 0.5 mg IH q6h, ISS, Loperamide 1 mg q2h prn, Ativan 1 mg IVP bid, Lopressor 12.5 mg PEG bid, Zofran prn, Protonix 40 mg PO qd, Saliva substitute q6h prn, Vanco 1.5 g q12h, Vit A+D top q8h prn, Vit E 400 IU GT daily SocHx: Prior to admission, admitted to smoking 3-4 cigarettes/day; denies alcohol or illicit drug use LMP approx 1 mo prior, reports regular periods with no hx heavy bleeding Review of Systems - Constitutional Constitutional: Fatigue. absent: Chills, Fever, Night Sweats - EENT Nose/Mouth/Throat: absent: Epistaxis - Cardiovascular Cardiovascular: absent: Chest Pain, Dyspnea - Respiratory Respiratory: absent: Cough, Dyspnea, Wheezing - Gastrointestinal Gastrointestinal: Abdominal Pain, Diarrhea, Nausea. absent: Vomiting - Genitourinary Genitourinary: absent: Change in Urinary Stream, Difficulty Urinating, Urinary Frequency - Reproductive: Female Reproductive:Female: Normal Menses. absent: Heavy Menses, Abnormal Vaginal Bleeding - Menstruation Menstruation: As Per HPI. absent: Dysmenorrhea - Integumentary Integumentary: absent: Rash, Unusual Bruising - Hematologic/Lymphatic Hematologic: As Per HPI. absent: Easy Bleeding, Easy Bruising Past Patient History - Infectious Disease Hx of Infectious Diseases: None - Past Medical History & Family History Past Medical History?: Yes - Past Social History Smoking Status: Light Smoker < 10 Cigarettes Daily - CARDIAC Hx Cardiac Disorders: Yes (CAD) Hx Hypercholesterolemia: Yes Hx Hypertension: Yes - PULMONARY Hx Asthma: Yes Hx Sleep Apnea: Yes (mild) - NEUROLOGICAL Hx Neurological Disorder: No - HEENT Hx HEENT Problems: No - RENAL Hx Kidney Stones: Yes - ENDOCRINE/METABOLIC Hx Diabetes Mellitus Type 2: Yes Hx Hypothyroidism: Yes - HEMATOLOGICAL/ONCOLOGICAL Hx Blood Disorders: No - INTEGUMENTARY Hx Dermatological Problems: No - MUSCULOSKELETAL/RHEUMATOLOGICAL Hx Arthritis: Yes - GASTROINTESTINAL Hx Gastritis: Yes - GENITOURINARY/GYNECOLOGICAL Hx Genitourinary Disorders: No - PSYCHIATRIC Hx Anxiety: Yes Hx Substance Use: No - SURGICAL HISTORY Hx Gastric Bypass Surgery: Yes (2013) - ANESTHESIA Hx Anesthesia: Yes Hx Anesthesia Reactions: No Hx Malignant Hyperthermia: No Meds Allergies/Adverse Reactions: Allergies Allergy/AdvReac Type Severity Reaction Status Date / Time moxifloxacin [From Avelox] Allergy Severe RASH Verified 05/13/18 23:21 - Medications Medications: Current Medications Acetaminophen (Tylenol 650mg/20.3ml Solution Ud) 975 mg GT Q8 PRN PRN Reason: Pain, Mild (1-3) Last Admin: 06/16/18 09:25 Dose: 975 mg Cholestyramine Resin (Questran) 4 gm PO BID [facility] Last Admin: 06/21/18 10:00 Dose: 4 gm Dextrose (Dextrose 50% Inj) 0 ml IV STAT PRN; Protocol PRN Reason: Hypoglycemia Protocol Last Admin: 05/16/18 23:40 Dose: 50 ml Dextrose (Glutose 15) 0 gm PO ONCE PRN; Protocol PRN Reason: Hypoglycemia Protocol Enoxaparin Sodium (Lovenox) 40 mg SC DAILY [facility] Last Admin: 06/21/18 09:59 Dose: 40 mg Ergocalciferol (Drisdol 50,000 Intl Units Cap) 1 cap PO Q7D [facility] Stop: 07/20/18 10:31 Last Admin: 06/15/18 10:40 Dose: 1 cap Escitalopram Oxalate (Lexapro) 10 mg GT DAILY [facility] Last Admin: 06/21/18 10:02 Dose: 10 mg Glucagon (Glucagen Diagnostic Kit) 0 mg IM STAT PRN; Protocol PRN Reason: Hypoglycemia Protocol Hydrocortisone (Cortizone 1% Cream) 0 gm TOP TID PRN PRN Reason: Rash Hydromorphone HCl (Dilaudid) 1 mg IVP Q3 PRN PRN Reason: Pain, SEVERE (8-10) Last Admin: 06/21/18 09:35 Dose: 1 mg Vancomycin HCl 1.5 gm/ Sodium (Chloride) 500 mls @ 333.333 mls/hr IVPB Q12H [facility] PRN Reason: Protocol Last Admin: 06/21/18 00:13 Dose: 333.333 mls/hr Insulin Human Regular (Novolin R) 0 unit SC Q6 [facility] PRN Reason: Protocol Last Admin: 06/21/18 06:00 Dose: Not Given Ipratropium [place] (Atrovent) 0.5 mg IH RQ6 [facility] Last Admin: 06/21/18 07:26 Dose: 0.5 mg Lactobacillus Acidophilus (Bacid Acidophilus) 1 cap PEG BID [facility] Last Admin: 06/21/18 10:02 Dose: 1 cap Loperamide HCl (Imodium) 1 mg PO Q2H PRN PRN Reason: Diarrhea Last Admin: 06/18/18 10:03 Dose: 1 mg Lorazepam (Ativan) 1 mg IVP BID [facility] Last Admin: 06/21/18 09:48 Dose: 1 mg Metoprolol Tartrate (Lopressor) 12.5 mg PEG BID [facility] Last Admin: 06/21/18 10:23 Dose: Not Given Nicotine (Nicoderm Cq) 1 patch TD DAILY [facility] Last Admin: 06/21/18 09:59 Dose: 1 patch Ondansetron HCl (Zofran Inj) 4 mg IVP Q6H PRN PRN Reason: Nausea/Vomiting Last Admin: 06/21/18 09:47 Dose: 4 mg Pantoprazole Sodium (Protonix Susp) 40 mg PO Q24H [facility] Last Admin: 06/21/18 09:58 Dose: 40 mg Saliva Substitute (Mouth Kote 236 Ml) 0 ml MM Q6 PRN PRN Reason: Dry mouth Vitamin A (Vitamin A & D Oint Ud Foilpak) 1 ea TOP Q8 PRN PRN Reason: dry lips Last Admin: 05/20/18 11:10 Dose: 1 ea Vitamin E (Vitamin E 400 Units Cap) 400 intlu GT DAILY [facility] Last Admin: 06/21/18 10:01 Dose: 400 intlu Physical Exam - Constitutional Appears: Non-toxic, No Acute Distress - Eye Exam Eye Exam: EOMI, Normal appearance, PERRL - ENT Exam ENT Exam: Mucous Membranes Moist Additional comments: NG tube in place, intact, not dislodged - Respiratory Exam Respiratory Exam: Clear to Auscultation Bilateral, NORMAL BREATHING PATTERN - Cardiovascular Exam Cardiovascular Exam: REGULAR RHYTHM, +S1, +S2 - GI/Abdominal Exam GI & Abdominal Exam: Rigid, Soft. absent: Distended, Guarding Additional comments: Mild tenderness to palpation in area adjacent to jejunostomy tube - Extremities Exam Extremities exam: Positive for: full ROM, normal capillary refill, normal inspection, pedal pulses present - Back Exam Back exam: FULL ROM, NORMAL INSPECTION. absent: tenderness - Neurological Exam Neurological exam: Alert, CN II-XII Intact, Oriented x3 - Psychiatric Exam Psychiatric exam: Normal Affect, Normal Mood - Skin Skin Exam: Dry, Intact, Warm Additional comments: No abnormal drainage observed from jejunostomy site Results - Vital Signs Recent Vital Signs: Last Vital Signs Temp 98.4 F 06/21/18 07:30 Pulse 98 H 06/21/18 07:30 Resp 18 06/21/18 07:30 BP 100/61 06/21/18 07:30 Pulse Ox 97 06/21/18 07:30 - Labs Result Diagrams: 06/21/18 06:52 06/21/18 06:52 Labs: Laboratory Results - last 24 hr 06/20/18 06/20/18 06/21/18 10:57 16:53 00:07 WBC RBC Hgb Hct MCV MCH MCHC RDW Plt Count MPV Neut % (Auto) Lymph % (Auto) [place] % (Auto) Eos % (Auto) Baso % (Auto) Neut # (Auto) Lymph # (Auto) [place] # (Auto) Eos # (Auto) Baso # (Auto) Sodium Potassium Chloride Carbon Dioxide Anion Gap BUN Creatinine Est GFR ( Amer) Est GFR (Non-Af Amer) POC Glucose (mg/dL) 122 H 102 129 H Random Glucose Calcium Phosphorus Magnesium Total Bilirubin AST ALT Alkaline Phosphatase Total Protein Albumin Globulin Albumin/Globulin Ratio 06/21/18 06/21/18 06/21/18 06:14 06:52 06:52 WBC 8.3 RBC 2.99 L Hgb 8.4 L Hct 25.4 L MCV 85.1 MCH 28.0 MCHC 32.9 L RDW 17.6 H Plt Count 332 MPV 7.5 Neut % (Auto) 64.5 Lymph % (Auto) 25.0 [place] % (Auto) 6.6 Eos % (Auto) 3.1 Baso % (Auto) 0.8 Neut # (Auto) 5.3 Lymph # (Auto) 2.1 [place] # (Auto) 0.6 Eos # (Auto) 0.3 Baso # (Auto) 0.1 Sodium 137 Potassium 3.8 Chloride 103 Carbon Dioxide 27 Anion Gap 10 BUN 4 L Creatinine 0.4 L Est GFR ( Amer) > 60 Est GFR (Non-Af Amer) > 60 POC Glucose (mg/dL) 102 Random Glucose 93 Calcium 8.2 L Phosphorus 4.6 H Magnesium 1.6 Total Bilirubin 0.4 AST 18 ALT 17 Alkaline Phosphatase 125 Total Protein 5.5 L Albumin 2.6 L Globulin 2.9 Albumin/Globulin Ratio 0.9 L Assessment & Plan - Assessment and Plan (Free Text) Assessment: This is a 38 y o female with PMHx chronic abd pain, and recurrent SBOs s/p gastric bypass (2013), s/p debridements x2 for internal hernia and removal of yenni limb, asthma, HTN, HLD, DM2, who presented on 05/13/18 with severe abd pain x 1 day. Reason for heme/onc consult was anemia, hx gastric bypass, and possible need for ferric-elt. Anemia likely 2/2 to iron-deficiency. Plan: Iron-Deficiency Anemia -Will start Ferrlecit daily -Pt can have iron levels monitored as outpatient after d/c -Further recommendations as per Dr. Cash <Addison Cash - Last Filed: 06/23/18 23:32> Meds - Medications Medications: Current Medications Acetaminophen (Tylenol 650mg/20.3ml Solution Ud) 975 mg GT Q8 PRN PRN Reason: Pain, Mild (1-3) Last Admin: 06/21/18 18:29 Dose: 975 mg Cholestyramine Resin (Questran) 4 gm PO BID [facility] Last Admin: 06/23/18 17:15 Dose: 4 gm Dextrose (Dextrose 50% Inj) 0 ml IV STAT PRN; Protocol PRN Reason: Hypoglycemia Protocol Last Admin: 05/16/18 23:40 Dose: 50 ml Dextrose (Glutose 15) 0 gm PO ONCE PRN; Protocol PRN Reason: Hypoglycemia Protocol Enoxaparin Sodium (Lovenox) 40 mg SC DAILY [facility] Last Admin: 06/23/18 10:21 Dose: 40 mg Ergocalciferol (Drisdol 50,000 Intl Units Cap) 1 cap PO Q7D [facility] Stop: 07/20/18 10:31 Last Admin: 06/22/18 09:46 Dose: 1 cap Escitalopram Oxalate (Lexapro) 10 mg GT DAILY [facility] Last Admin: 06/23/18 10:21 Dose: 10 mg Glucagon (Glucagen Diagnostic Kit) 0 mg IM STAT PRN; Protocol PRN Reason: Hypoglycemia Protocol Hydrocortisone (Cortizone 1% Cream) 0 gm TOP TID PRN PRN Reason: Rash Hydromorphone HCl (Dilaudid) 1 mg IVP Q3 PRN PRN Reason: Pain, SEVERE (8-10) Last Admin: 06/23/18 20:47 Dose: 1 mg Ferric Sodium Gluconate Complex 125 mg/ Sodium Chloride 110 mls @ 100 mls/hr IVPB Q24H [facility] Stop: 06/29/18 14:31 Last Admin: 06/23/18 15:23 Dose: 100 mls/hr Vancomycin HCl 1,500 mg/ (Sodium Chloride) 500 mls @ 166.6 mls/hr IVPB Q12H [facility] PRN Reason: Protocol Last Admin: 06/23/18 17:13 Dose: 166.6 mls/hr Insulin Human Regular (Novolin R) 0 unit SC Q6 [facility] PRN Reason: Protocol Last Admin: 06/23/18 17:16 Dose: Not Given Ipratropium [place] (Atrovent) 0.5 mg IH RQ6 [facility] Last Admin: 06/23/18 13:21 Dose: 0.5 mg Lactobacillus Acidophilus (Bacid Acidophilus) 1 cap PEG BID [facility] Last Admin: 06/23/18 17:15 Dose: 1 cap Loperamide HCl (Imodium) 1 mg PO Q2H PRN PRN Reason: Diarrhea Last Admin: 06/23/18 17:15 Dose: 1 mg Lorazepam (Ativan) 1 mg IVP BID [facility] Last Admin: 06/23/18 17:15 Dose: 1 mg Metoprolol Tartrate (Lopressor) 12.5 mg PEG BID [facility] Last Admin: 06/23/18 17:15 Dose: 12.5 mg Nicotine (Nicoderm Cq) 1 patch TD DAILY [facility] Last Admin: 06/23/18 10:21 Dose: 1 patch Ondansetron HCl (Zofran Inj) 4 mg IVP Q6H PRN PRN Reason: Nausea/Vomiting Last Admin: 06/23/18 08:26 Dose: 4 mg Pantoprazole Sodium (Protonix Susp) 40 mg PO Q24H [facility] Last Admin: 06/23/18 10:21 Dose: 40 mg Saliva Substitute (Mouth Kote 236 Ml) 0 ml MM Q6 PRN PRN Reason: Dry mouth Vitamin A (Vitamin A & D Oint Ud Foilpak) 1 ea TOP Q8 PRN PRN Reason: dry lips Last Admin: 05/20/18 11:10 Dose: 1 ea Vitamin E (Vitamin E 400 Units Cap) 400 intlu GT DAILY [facility] Last Admin: 06/23/18 10:21 Dose: 400 intlu Results - Vital Signs Recent Vital Signs: Last Vital Signs Temp 98.7 F 06/23/18 15:00 Pulse 85 06/23/18 17:12 Resp 20 06/23/18 15:00 BP 124/87 06/23/18 17:12 Pulse Ox 97 06/23/18 15:00 - Labs Result Diagrams: 06/23/18 07:00 06/23/18 07:00 Labs: Laboratory Results - last 24 hr 06/22/18 06/23/18 06/23/18 23:52 06:04 07:00 WBC 7.9 RBC 3.07 L Hgb 8.7 L Hct 26.1 L MCV 85.0 MCH 28.3 MCHC 33.3 RDW 17.8 H Plt Count 350 MPV 6.9 L Neut % (Auto) 64.0 Lymph % (Auto) 23.3 [place] % (Auto) 6.4 Eos % (Auto) 5.4 H Baso % (Auto) 0.9 Neut # (Auto) 5.0 Lymph # (Auto) 1.8 [place] # (Auto) 0.5 Eos # (Auto) 0.4 Baso # (Auto) 0.1 Sodium Potassium Chloride Carbon Dioxide Anion Gap BUN Creatinine Est GFR ( Amer) Est GFR (Non-Af Amer) POC Glucose (mg/dL) 96 108 Random Glucose Calcium Phosphorus Magnesium Total Bilirubin AST ALT Alkaline Phosphatase Total Protein Albumin Globulin Albumin/Globulin Ratio 06/23/18 06/23/18 06/23/18 07:00 11:52 16:52 WBC RBC Hgb Hct MCV MCH MCHC RDW Plt Count MPV Neut % (Auto) Lymph % (Auto) [place] % (Auto) Eos % (Auto) Baso % (Auto) Neut # (Auto) Lymph # (Auto) [place] # (Auto) Eos # (Auto) Baso # (Auto) Sodium 138 Potassium 3.6 Chloride 103 Carbon Dioxide 28 Anion Gap 11 BUN 3 L Creatinine 0.4 L Est GFR ( Amer) > 60 Est GFR (Non-Af Amer) > 60 POC Glucose (mg/dL) 109 85 Random Glucose 106 H Calcium 8.3 L Phosphorus 5.2 H Magnesium 1.6 Total Bilirubin 0.3 AST 17 ALT 25 Alkaline Phosphatase 128 H Total Protein 5.5 L Albumin 2.7 L Globulin 2.8 Albumin/Globulin Ratio 0.9 L 06/23/18 20:52 WBC RBC Hgb Hct MCV MCH MCHC RDW Plt Count MPV Neut % (Auto) Lymph % (Auto) [place] % (Auto) Eos % (Auto) Baso % (Auto) Neut # (Auto) Lymph # (Auto) [place] # (Auto) Eos # (Auto) Baso # (Auto) Sodium Potassium Chloride Carbon Dioxide Anion Gap BUN Creatinine Est GFR ( Amer) Est GFR (Non-Af Amer) POC Glucose (mg/dL) 93 Random Glucose Calcium Phosphorus Magnesium Total Bilirubin AST ALT Alkaline Phosphatase Total Protein Albumin Globulin Albumin/Globulin Ratio Assessment & Plan - Assessment and Plan (Free Text) Plan: Pt seen and examined, agree with Dr. Connolly's consult. 38 year old female with a history of DM, HTN, HL, yenni n Y gastric bypass admitted with ischemic bowel requiring surgical intervention with iron deficiency anemia. Will start the patient on IV iron. Normal b12/folate. Recommend checking copper level. Thank you for this interesting consult.
[2018-06-21 12:23] LABS: IRON 17 ug/dL (37-170)
[2018-06-21 12:34] LABS: % IRON SATURATION 7 (20-55); TOTAL IRON BINDING CAPACITY 238 ug/dL (250-450)
[2018-06-21] MEDS ORDERED: Ferric Sodium Gluconat Complex 62.5 mg/5 ml Vial IVPB SCH (13:30)
[2018-06-21] MEDS: Ferric Sodium Gluconat Complex 125 MG in Sodium Chloride 0.9% 100 ML IVPB SCH (14:48)
[2018-06-21] MEDS: Acetaminophen 650mg/20.3ml solution UD GT PRN (18:29)
[2018-06-21] MEDS ORDERED: DiphenhydrAMINE 12.5 mg/5 ml LIQ UD (5 ml) PEG ONE (20:37)
[2018-06-22] MEDS: (Novolin R) Insulin Human Regular 100 units/ml vial SC SCH ×4 (00:03→18:04)
[2018-06-22] MEDS: Ipratropium 0.02% Inhal Soln (0.5 mg/2.5 ml) UD IH SCH ×4 (01:06→19:05)
[2018-06-22] MEDS: HYDROmorphone 1 mg/ml ISec IVP PRN ×8 (01:19→23:09)
--- NOTE | 2018-06-22 07:00 | CP.PCM.PN ---
<Esther Angulo - Last Filed: 06/22/18 14:37> Subjective - Date & Time of Evaluation Date of Evaluation: 06/22/18 Time of Evaluation: 06:59 - Subjective Subjective: PGY-1 Medicine Progress Note for Dr. Turk Patient was seen and examined today at bedside. Patient is in no acute distress. Nursing reports no overnight events. Patient endorses 4 episodes of bowel movement that she describes as watery and loose. Pain is tolerable on decreased pain regimen. Wound vac sponge replaced, suctioning well. NGT is still suctioning over 300ml of material in a 24 hour period. Patient otherwise denies chest pain, shortness of breath, abdominal pain, fever, chills, nausea, vomiting. Of note later in the afternoon, was notified by nurse that the patient complained of fluid collection along abdominal incision. Returned to evaluate the patient with Dr. Turk, and per patient, the area is tender to touch. Objective - Vital Signs/Intake and Output Vital Signs (last 24 hours): Temp Pulse Resp BP Pulse Ox 97.9 F 96 H 20 121/80 98 06/22/18 04:20 06/22/18 04:20 06/22/18 04:20 06/22/18 04:20 06/22/18 04:20 Intake and Output: 06/21/18 06/22/18 18:59 06:59 Intake Total 100 930 Output Total 300 300 Balance -200 630 - Medications Medications: Current Medications Acetaminophen (Tylenol 650mg/20.3ml Solution Ud) 975 mg GT Q8 PRN PRN Reason: Pain, Mild (1-3) Last Admin: 06/21/18 18:29 Dose: 975 mg Cholestyramine Resin (Questran) 4 gm PO BID [facility] Last Admin: 06/21/18 18:31 Dose: 4 gm Dextrose (Dextrose 50% Inj) 0 ml IV STAT PRN; Protocol PRN Reason: Hypoglycemia Protocol Last Admin: 05/16/18 23:40 Dose: 50 ml Dextrose (Glutose 15) 0 gm PO ONCE PRN; Protocol PRN Reason: Hypoglycemia Protocol Enoxaparin Sodium (Lovenox) 40 mg SC DAILY [facility] Last Admin: 06/21/18 09:59 Dose: 40 mg Ergocalciferol (Drisdol 50,000 Intl Units Cap) 1 cap PO Q7D [facility] Stop: 07/20/18 10:31 Last Admin: 06/15/18 10:40 Dose: 1 cap Escitalopram Oxalate (Lexapro) 10 mg GT DAILY [facility] Last Admin: 06/21/18 10:02 Dose: 10 mg Glucagon (Glucagen Diagnostic Kit) 0 mg IM STAT PRN; Protocol PRN Reason: Hypoglycemia Protocol Hydrocortisone (Cortizone 1% Cream) 0 gm TOP TID PRN PRN Reason: Rash Hydromorphone HCl (Dilaudid) 1 mg IVP Q3 PRN PRN Reason: Pain, SEVERE (8-10) Last Admin: 06/22/18 04:30 Dose: 1 mg Ferric Sodium Gluconate Complex 125 mg/ Sodium Chloride 110 mls @ 100 mls/hr IVPB Q24H [facility] Stop: 06/29/18 14:31 Last Admin: 06/21/18 14:48 Dose: 100 mls/hr Vancomycin HCl 1,500 mg/ (Sodium Chloride) 500 mls @ 166.6 mls/hr IVPB Q12H [facility] PRN Reason: Protocol Last Admin: 06/22/18 05:13 Dose: 166.6 mls/hr Insulin Human Regular (Novolin R) 0 unit SC Q6 KATELYN PRN Reason: Protocol Last Admin: 06/22/18 00:03 Dose: Not Given Ipratropium [place] (Atrovent) 0.5 mg IH RQ6 [facility] Last Admin: 06/22/18 01:06 Dose: Not Given Lactobacillus Acidophilus (Bacid Acidophilus) 1 cap PEG BID [facility] Last Admin: 06/21/18 18:31 Dose: 1 cap Loperamide HCl (Imodium) 1 mg PO Q2H PRN PRN Reason: Diarrhea Last Admin: 06/18/18 10:03 Dose: 1 mg Lorazepam (Ativan) 1 mg IVP BID [facility] Last Admin: 06/21/18 18:21 Dose: 1 mg Metoprolol Tartrate (Lopressor) 12.5 mg PEG BID [facility] Last Admin: 06/21/18 18:29 Dose: 12.5 mg Nicotine (Nicoderm Cq) 1 patch TD DAILY [facility] Last Admin: 06/21/18 09:59 Dose: 1 patch Ondansetron HCl (Zofran Inj) 4 mg IVP Q6H PRN PRN Reason: Nausea/Vomiting Last Admin: 06/21/18 09:47 Dose: 4 mg Pantoprazole Sodium (Protonix Susp) 40 mg PO Q24H [facility] Last Admin: 06/21/18 09:58 Dose: 40 mg Saliva Substitute (Mouth Kote 236 Ml) 0 ml MM Q6 PRN PRN Reason: Dry mouth Vitamin A (Vitamin A & D Oint Ud Foilpak) 1 ea TOP Q8 PRN PRN Reason: dry lips Last Admin: 05/20/18 11:10 Dose: 1 ea Vitamin E (Vitamin E 400 Units Cap) 400 intlu GT DAILY [facility] Last Admin: 06/21/18 10:01 Dose: 400 intlu - Labs Labs: 06/21/18 06:52 06/21/18 06:52 PT 14.3 SECONDS (9.7-12.2) H 06/10/18 07:05 INR 1.3 06/10/18 07:05 APTT 33 SECONDS (21-34) 05/25/18 06:16 - Additional Findings Additional findings: - Constitutional Appears: Non-toxic, No Acute Distress, Chronically Ill - Head Exam Head Exam: ATRAUMATIC, NORMOCEPHALIC - Eye Exam Eye Exam: EOMI, Normal appearance - ENT Exam ENT Exam: Mucous Membranes Moist, Normal Exam Additional comments: NGT in place, intermittent suction - Respiratory Exam Respiratory Exam: Clear to Ausculation Bilateral, NORMAL BREATHING PATTERN. absent: Rales, Rhonchi, Wheezes - Cardiovascular Exam Cardiovascular Exam: REGULAR RHYTHM, +S1, +S2. absent: Gallop, Rubs, Murmur - GI/Abdominal Exam GI & Abdominal Exam: Soft, Normal Bowel Sounds. absent: Firm, Guarding Additional comments: midline abdominal incision healing well. Wound vac covering air seal with a pool of drainage. Gtube in place, flushing well - dressing appears reddish with some crusting. - Extremities Exam Extremities Exam: Full ROM, Normal Capillary Refill Additional comments: peripheral pulses palpable bilaterally (radial, DP, PT) R PICC line in place - Neurological Exam Neurological Exam: Alert, Awake, Normal Gait, Oriented x3 - Psychiatric Exam Psychiatric exam: Normal Affect, Normal Mood - Skin Skin Exam: Intact, Normal Color, Warm Assessment and Plan - Assessment and Plan (Free Text) Assessment: Assessment: 38F with a PMH of HTN, HLD, DM2, asthma s/p bowel resection (05/14, 05/16) 2/2 internal hernia s/p Yenni-en-Y gastric bypass in 2014 admitted for medical optimization prior to reversal of bypass Plan: Ischemic bowel disease secondary to internal hernias producing bowel obstruction Current Management: - Current drains include: NGT (have on intermittent suction per surgery), gastrostomy tube (replaced 06/10) - Repeat wound culture (06/13/18): Coag neg Staph, enterococcus raffinosus, Abx - sensative to vancomyocin - Continue vanco 1g Q12 - 06/22 Vanc troph 11.1 ideal range 15- 20, adjusted vanc to 1.5g q12 (first dose 06/18 13:00) - Repeat vanc trough 06/20 @ 12:30AM = 10.2 - Repeat vanc trough 06/22 @ 4:30AM (30 mins prior to 8th dose) = 11.1 - Dr. Harley (surgery) on the case Wound vac to continuous suction (Surgery aware of fluid collection and will change wound vac, per nurse) Following Bariatric surgeon (Dr. Mccray) recs-- Current recs no adventist of continuity operation until 5 weeks after 05/16 surgery Current drainage from mid-line incision possibly d/t leak of tube feed contents form around gastrostomy tube vs fistula -- wound vac in place Repeat wound culture (06/13/18): Coag neg Staph, enterococcus raffinosus, Abx - cipro to vancomyocin for coverage - Heme consulted: Dr. Cash for Fe status - appreciated recommendations Iron 17, TIBC 238, % sat 7, ferritin 14.5, pending retic count Cultures: New (06/22/18): Wound Culture with gram stain of abdominal incision: collected and pending results New (06/22/18): Wound Culture with gram stain of Peg site: collected and pending results Peritoneal Fluid (05/14/18): Pseudomonas Aeruginosa sensitive to Meropenem Wound Culture (05/23/18): Yudith Albicans Blood Culture (05/15/18, 05/22/18): no growth Urine Culture (05/22/18): no growth Incision Site (05/31/18): Enterococcus faecalis, Acinetobacter baumannii Stool Cultures (06/03/18): No salmonella, shigella, or campylobacteria isolates Repeat wound culture (06/13/18): Coag neg Staph, enterococcus raffinosus Antibiotics Continue Vancomycin 1gm IV Q12Hr (started 06/16 @ 12pm), goal vanc trough 15-20 Discontinued Cipro 400 mg IV q12hrs (started 06/02, last day 06/16/18) Completed Flagyl 500mg IVPB q8hrs (active since 05/15/18-06/19/18) Discontinued Meropenem 1gm IVPB q8hr (active since 05/15/18-05/27/18) Measure vitamin levels and replace as needed Vit D <12.8- vid D 50,000 unites q1wk x8 wks B12 707, wnl Folate 12.6, wnl Vit A 42, wnl Alpha Vit E 5.6, wnl Vit A, B1, B6, E levels reordered on 06/15. - VitB1: inappropriately submitted, 06/01 value acceptable - VitB6: 5.9, wnl - Tabitha, E collected Medication: Continue Tylenol 975 mg liq q8hrs Continue Dilaudad 1mg IV q3hrs PRN Continue Zofran 4mg IV q6hrs PRN Tachycardia, persistent (110s-130s)- possibly etiologies include pain, infection , anxiety -She is being treated for Left G Tube fluid infection. -Continue Ativan PRN -Continue Dilaudid on board to be used PRN. -Continue Metoprolol tartrate 5mg IV q6hrs with holding parameters (SBP <100, HR <60) Diarrhea, acute, improving- suspect secondary to PO intake by pt -C.Diff (05/22, 05/24, 05/28): negative -Stool O&P (05/25/18): negative -Stool leukocytes (05/25/18): negative -per ID continue Flagyl due to leak around wound vac -Imodium 1mg PO Q2H PRN Anxiety -[employer] consulted- pt initially refused but then accepted -Psychiatry consulted (Dr. Reyez)- managing Ativan -Continue Ativan 1mg IV BID -Continue Lexapro 10mg GT daily (started 05/31) Insomnia - Discontinue, Benadryl 25 mg IVP HS PRN, clinically not indicated Anemia, acute, stable, pt denies blood in stool -Patient received a total of 2 PRBC (on 05/16) and 4 FFP (on 05/15 and 05/16) -Iron 16, TIBC 205, %sat 4.7, ferritin 75.3 -Monitor CBC Q2D Thrombocytosis, improving (504)- suspect reactive to pain, surgery- Resolved -Monitory CBC Q2D Diabetes Mellitus, Type 2- controlled -From prior note: Admittedly non-compliant, has not taken Januvia for one year -Accuchecks q6hrs -Hypoglycemic protocol -ISS regular -HbA1c 5.8 -History of gastric bypass surgery Hypercholesterolemia- untreated - LDL <30, HDL 23, Chol 59, TG 195 (06/03/18) - LDL 38, HDL 14, Chol 104, TG 226 (05/19/18) - History of gastric bypass surgery - Questran 4gm PO BID History of Hypertension, controlled- since gastric bypass has not taken meds -Metoprolol 5mg IV q6hrs History Obesity- Resolved -s/p gastric bypass surgery in 2013 History of Asthma- Chronic -Atrovent q6hrs Nicotine use disorder- Chronic - From prior note: 1ppd x 20 yrs, 1/2ppd x3 yrs - Continue Nicoderm 1 patch TD QD Electrolyte Imbalance: hypokalemia, hypomagnesemia - resolved - continue to monitor with AM labs, replete as needed Leukocytosis, trending downwards- likely secondary to ischemic bowel secondary to small bowel obstruction and surgeries- Resolved - Cultures: Peritoneal Fluid (05/14/18): Pseudomonas Aeruginosa sensitive to Meropenem Wound Culture (05/23/18): Yudith albicans Blood Culture (05/15/18, 05/22/18): no growth Urine Culture (05/22/18): no growth Wound Cx from incision site 05/31: Enterococcus faecalis, Acinetobacter baumanii, on ciprofloxacin 400mg (started 06/02) - Monitor CBC Q2D Prophylaxis -Hydrocortisone 1% Cream topical TID for Right Upper Inner Arm macular rash- improved -Vitamin A&D topical q8hrs PRN for dry lips -Saliva substitute q6hrs PRN for dry mouth -IVF: not indicated -VTE ppx: Lovenox 40mg SC daily, SCDs; encourage ambulation -GI ppx: Protonix 40mg IV BID, Florastor BID -Code status: full code Dispo: PT consulted- working with patient daily, rec home PT with services. Will stay at [facility] until bypass reversal surgery. Pending Dr. Mccray recs. Patient seen and case discussed with Attending Physician, Dr. Burke Angulo, PGY-1 <Doretha Turk V - Last Filed: 06/23/18 07:30> Objective - Vital Signs/Intake and Output Vital Signs (last 24 hours): Temp Pulse Resp BP Pulse Ox 98.8 F 117 H 20 130/88 98 06/22/18 15:00 06/22/18 17:05 06/22/18 15:00 06/22/18 17:05 06/22/18 15:00 Intake and Output: 06/23/18 06/23/18 06:59 18:59 Intake Total 1400 Output Total 415 Balance 985 - Medications Medications: Current Medications Acetaminophen (Tylenol 650mg/20.3ml Solution Ud) 975 mg GT Q8 PRN PRN Reason: Pain, Mild (1-3) Last Admin: 06/21/18 18:29 Dose: 975 mg Cholestyramine Resin (Questran) 4 gm PO BID [facility] Last Admin: 06/22/18 18:03 Dose: 4 gm Dextrose (Dextrose 50% Inj) 0 ml IV STAT PRN; Protocol PRN Reason: Hypoglycemia Protocol Last Admin: 05/16/18 23:40 Dose: 50 ml Dextrose (Glutose 15) 0 gm PO ONCE PRN; Protocol PRN Reason: Hypoglycemia Protocol Enoxaparin Sodium (Lovenox) 40 mg SC DAILY [facility] Last Admin: 06/22/18 09:45 Dose: 40 mg Ergocalciferol (Drisdol 50,000 Intl Units Cap) 1 cap PO Q7D [facility] Stop: 07/20/18 10:31 Last Admin: 06/22/18 09:46 Dose: 1 cap Escitalopram Oxalate (Lexapro) 10 mg GT DAILY [facility] Last Admin: 06/22/18 09:46 Dose: 10 mg Glucagon (Glucagen Diagnostic Kit) 0 mg IM STAT PRN; Protocol PRN Reason: Hypoglycemia Protocol Hydrocortisone (Cortizone 1% Cream) 0 gm TOP TID PRN PRN Reason: Rash Hydromorphone HCl (Dilaudid) 1 mg IVP Q3 PRN PRN Reason: Pain, SEVERE (8-10) Last Admin: 06/23/18 05:08 Dose: 1 mg Ferric Sodium Gluconate Complex 125 mg/ Sodium Chloride 110 mls @ 100 mls/hr IVPB Q24H [facility] Stop: 06/29/18 14:31 Last Admin: 06/22/18 14:05 Dose: 100 mls/hr Vancomycin HCl 1,500 mg/ (Sodium Chloride) 500 mls @ 166.6 mls/hr IVPB Q12H [facility] PRN Reason: Protocol Last Admin: 06/23/18 05:11 Dose: 166.6 mls/hr Insulin Human Regular (Novolin R) 0 unit SC Q6 [facility] PRN Reason: Protocol Last Admin: 06/23/18 06:07 Dose: Not Given Ipratropium [place] (Atrovent) 0.5 mg IH RQ6 [facility] Last Admin: 06/23/18 07:19 Dose: Not Given Lactobacillus Acidophilus (Bacid Acidophilus) 1 cap PEG BID [facility] Last Admin: 06/22/18 18:03 Dose: 1 cap Loperamide HCl (Imodium) 1 mg PO Q2H PRN PRN Reason: Diarrhea Last Admin: 06/22/18 18:18 Dose: 1 mg Lorazepam (Ativan) 1 mg IVP BID [facility] Last Admin: 06/22/18 18:03 Dose: 1 mg Metoprolol Tartrate (Lopressor) 12.5 mg PEG BID [facility] Last Admin: 06/22/18 18:03 Dose: 12.5 mg Nicotine (Nicoderm Cq) 1 patch TD DAILY [facility] Last Admin: 06/22/18 09:46 Dose: 1 patch Ondansetron HCl (Zofran Inj) 4 mg IVP Q6H PRN PRN Reason: Nausea/Vomiting Last Admin: 06/22/18 18:03 Dose: 4 mg Pantoprazole Sodium (Protonix Susp) 40 mg PO Q24H [facility] Last Admin: 06/22/18 09:46 Dose: 40 mg Saliva Substitute (Mouth Kote 236 Ml) 0 ml MM Q6 PRN PRN Reason: Dry mouth Vitamin A (Vitamin A & D Oint Ud Foilpak) 1 ea TOP Q8 PRN PRN Reason: dry lips Last Admin: 05/20/18 11:10 Dose: 1 ea Vitamin E (Vitamin E 400 Units Cap) 400 intlu GT DAILY [facility] Last Admin: 06/22/18 09:46 Dose: 400 intlu - Labs Labs: 06/21/18 06:52 06/21/18 06:52 PT 14.3 SECONDS (9.7-12.2) H 06/10/18 07:05 INR 1.3 06/10/18 07:05 APTT 33 SECONDS (21-34) 05/25/18 06:16 Assessment and Plan (1) Ischemic bowel disease Status: Acute (2) Obesity (BMI 30-39.9) Status: Acute (3) Small bowel obstruction Status: Acute (4) Prophylactic measure Status: Acute Attending/Attestation - Attestation I have personally seen and examined this patient.: Yes I have fully participated in the care of the patient.: Yes I have reviewed all pertinent clinical information, including history, physical exam and plan: Yes Notes (Text): This is a late computer entry for 06/22/2018. Patient seen, examined and case discussed with day-time resident. Patient seen this afternoon with resident. Patient denies acute complaints. Patient is is understanding of the fact that we do need to taper her very high- dose narcotic medication and that this will be a process. Patient remains antibiotic 1 mg IV every 3 hours and Ativan 1 mg IV twice a day. Noted over patient's abdominal incision there is some fluid that will be changed by surgical instrument mechanic. We have obtained third wound culture to see what the fluid represents. Patient also to noted to have mild discharge over the gastric tube is well which we have obtained cultures well. Patient will continue IV Ferrlecit to restore iron stores prior to surgery. Patient will continue IV vancomycin which was initially started on June 16 to see if will culture his clearing or not. Physical copies of patient's vitamin B1 and B6 obtained and will be placed in the chart. Surgeon bariatric surgeon to coordinate plan intended date for GI reversal surgery. We'll continue to medically optimize and restore nutritional status prior to surgery. Assessment/Plan (1) Ischemic bowel disease Assessment & Plan: * Dr. Harley (surgery) on the case-->help appreciated * Preoperative/intraoperative/postoperative management per surgery * Following Bariatric surgeon (Dr. Mccray) to determine reversal bariatric surgery * Continue wound vac to suction-->replaced today * Continue tube feeds for nutrition * Continue NGT to intermittent suction * Continue antibiotics, PRN pain medications * Dr. Alvarado (GI) on the case-->help appreciated * Dr. Rivera (ID) on the case-->help appreciated * Brief summary of: * Patient has had 2 bloody bowel movements started 05/14/18. Patient's rectal: blood. She had reported abdominal pain has worsening since night of admission. Patient required emergent surgical intervention on 05/14/18 and transferred to ICU. Per operative note (05/14/18): Diagnostic laparoscopy, Exploratory laparotomy , Reduction of internal hernia, Lysis of adhesions, Drainage of abdominal collections, temporary abdominal closure, EGD * Ischemia of yenni limb, internal hernia. [place] drain stitched to distal common limb * Patient underwent surgery again on 05/16/18.Re-exploration, Small bowel resection of ileum, small bowel resection of Yenni limb with gastrojejunostomy, reversal of bypass, primary anastomosis of ileum-ileum, ileum-ileum, and ileum- jejunum, Gastrostomy tube in bypassed stomach, EGD. Patient extubated 05/16/18. Patient is pending surgery intervention to restore GI motility in 5 weeks pending nutritional status. Measure vitamin levels and replace as needed * Vit D <12.8- vit D 50,000 units q1wk x8 wks * Prealbumin 18.1 * B12 707 * Folate 12.6 * Vitamin A: 42 * Vitamin E: 5.6 (low)-->replete * Vitamin B6: 11.1 (normal) and Vitamin B1: 93 (from 06/01/18) * Drains included: NGT Tube in place, Ojeda in place of gastrostomy tube, left min removed 05/25/18; right min was removed 05/23/18; no ojeda; wound vac replaced on 06/20/18 * IV abx: * Flagyl 500mg IVPB Q8H (active since 05/15/18)- discontinued * Vancomycin 1.5 g IV piggyback every 12 hours * Continue to monitor Vanco trough and monitor renal function * Cultures: * Peritoneal Fluid : Pseudomonas Aeruginosa sensitive to Meropenem (05/15-05/27) * Wound Culture (05/23): Yudith Albican--->Diflucan since 05/22/18 until 05/30/18 * Wound culture #1 June 22 from surgical site: Pending result * We'll culture #2 June 22 from gastrostomy tube: Pending result * Incision site 05/31: Enterococcus faecalis, Acinetobacter baumannii---> Ciprofloxacin 400mg IVPB Q12H (active since 06/03/18) * Incision site 06/13/18: Coagulase Neg Staph, Enterococcus Raffinosus--> Vancomcycin 1.5g IVPB Q12H (active since 06/18/18; started on 06/16/18) * Blood culture (05/15/18): no growth after 5 days X2 * Blood culture (05/22/18): no growth after 5 days X2 * Urine culture: no growth * PRNS: * Tylenol 975 mg liq q8hrs * Dilaudid 1.5 mg IV q3hrs PRN-->Dilaudid 1mg IV Q3H PRN * Zofran 4mg IV q6hrs PRN * Ativan 1mg IV BID anxiety-->per psych * Diarrhea * Patient is Questran 4gm PO BID Status: Acute (2) Small bowel obstruction Assessment & Plan: * Secondary to hernia * Further details noted in #1 Status: Acute (3) Obesity (BMI 30-39.9) Assessment & Plan: * s/p gastric bypass surgery in 2013 * Operative note (2013): Yenni-en-Y gastric bypass surgery * Given nature of ischemic bowel affecting portioning of the gastric limb, she will need to wait at least 5 weeks to restoring GI motility when she is nutritionally optimized Status: Acute (4) Status post gastric bypass for obesity Assessment & Plan: * status post gastric bypass 2013 * Operative note (2013): Yenni-en-Y gastric bypass surgery * Patient noncomplaint with following up postoperative. Status: Acute (5) History of Asthma Assessment & Plan: * Patient not in acute exacerbation prior to OR * Atrovent Q6H (6) Diabetes Mellitus (Type 2); controlled Assessment & Plan: * From prior note: * Admittedly non-compliant - has not taken Januvia for one year * Accuchecks Q6H * Hypoglycemic protocol * HbA1c - 6.3 (03/10/17) * hgba1c: 5.8 * History of gastric bypass surgery (8) Hx of HTN (hypertension) Assessment & Plan: * Since Gastric Bypass has not taken meds (9) Hx of Hypothyroid Assessment & Plan: * From prior note: * Pt admits non-compliance (10) Hypercholesterolemia Assessment & Plan: * From prior note: * Pt not taking meds * LDL 138, HDL 67, Tchol 220, Trig 112 * History of gastric bypass surgery (11) Anxiety Assessment & Plan: * Psychiatry (Dr. 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 Assessment & Plan: * 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 and from my prior note from last hospitalization (13) Smoker Assessment & Plan: * From my prior note: 1ppd x 20 yrs, 1/2 ppd x 3 yrs * Nicoderm 1 patch TD patchy (14) Tachycardia Assessment & Plan: * Lopressor 12.5mg PO BID (15) Prophylactic measure Assessment & Plan: * Bacid Acidophilus 1 cap PEG BID * Lovenox 40mg subqdaily for DVT ppx * PICC line 06/01/18 * need cathflo given clogging 06/19/18 * protonix 40mg IV Qdaily * Vitamin A&D ointment 1 each top Q8H * NGT Tube * IR exchange of Ojeda to 24 upper sorbian gauge 06/10/18 * Wound vac 06/20/18 replaced * Dressing changed per surgery * Feed orders: * Patient is currently on Osmolite via G Tube which has the following components. * MCT Oil (benefits in situations with malabsorption and is low residue) * 1440 calories; 70 gm protein; 914 ml free water * Should at any time the patient require TPN then we can try the following options: * 83 ml/hr: 2100 tete, 100 gm protein * 63 ml/hr: 1575 tete, 75 gm protein * 20% Intrilipid every other day with either one of the TPN rates mentioned above Status: Acute Disposition: Awaiting coordination from surgery and bariatric surgery for reversal since there is GI dysmotility. Patient is on vancomycin for abdominal wound infection since 06/16/18. Patient had 2 new wound cultures obtained 1 from surgery site second from the NG tube. Patient is currently on IV Ferrlecit to help replace iron stores. We will continue to monitor.
[2018-06-22] MEDS: Enoxaparin 40 mg Syringe SC SCH (09:45)
[2018-06-22] MEDS: Cholestyramine 4 gm/Pkt UD PO SCH ×2 (09:46→18:03)
[2018-06-22] MEDS: Pantoprazole 40 mg Susp UD PO SCH (09:46)
[2018-06-22] MEDS: Ergocalciferol 50,000 Intl Units Cap PO SCH (09:46)
[2018-06-22] MEDS: Lactobacillus Acidophilus 500 MU Cap PEG SCH ×2 (09:46→18:03)
[2018-06-22] MEDS: Ferric Sodium Gluconat Complex 125 MG in Sodium Chloride 0.9% 100 ML IVPB SCH (14:05)
--- NOTE | 2018-06-22 15:00 | CP.PCM.PN ---
Addendum entered and electronically signed by Humberto Banegas 06/22/18 19:14: wound vac changed today, setting on 125 mmHg Original Note: <Humberto Banegas - Last Filed: 06/22/18 18:44> Subjective - Date & Time of Evaluation Date of Evaluation: 06/22/18 Time of Evaluation: 15:30 - Subjective Subjective: PGY-1 general surgery note for Dr Harley Patient was seen and examined at bedside. Patient reports unchanged abdominal pain. Patient says she sees a "bubble" under area covered by tape holding wound vac sponge. Patient is out of bed and walking. patient denies fevers, chills, nausea or vomiting. Patient admits to 5 episodes of diarrhea. Wound vac output/ 24 hrs was 100ml. NGT output/24 hours was 950ml. Objective - Vital Signs/Intake and Output Vital Signs (last 24 hours): Temp Pulse Resp BP Pulse Ox 97.9 F 99 H 18 109/74 98 06/22/18 07:00 06/22/18 09:48 06/22/18 07:00 06/22/18 09:48 06/22/18 07:00 Intake and Output: 06/22/18 06/22/18 06:59 18:59 Intake Total 1430 Output Total 490 Balance 940 - Medications Medications: Current Medications Acetaminophen (Tylenol 650mg/20.3ml Solution Ud) 975 mg GT Q8 PRN PRN Reason: Pain, Mild (1-3) Last Admin: 06/21/18 18:29 Dose: 975 mg Cholestyramine Resin (Questran) 4 gm PO BID [facility] Last Admin: 06/22/18 09:46 Dose: 4 gm Dextrose (Dextrose 50% Inj) 0 ml IV STAT PRN; Protocol PRN Reason: Hypoglycemia Protocol Last Admin: 05/16/18 23:40 Dose: 50 ml Dextrose (Glutose 15) 0 gm PO ONCE PRN; Protocol PRN Reason: Hypoglycemia Protocol Enoxaparin Sodium (Lovenox) 40 mg SC DAILY [facility] Last Admin: 06/22/18 09:45 Dose: 40 mg Ergocalciferol (Drisdol 50,000 Intl Units Cap) 1 cap PO Q7D [facility] Stop: 07/20/18 10:31 Last Admin: 06/22/18 09:46 Dose: 1 cap Escitalopram Oxalate (Lexapro) 10 mg GT DAILY [facility] Last Admin: 06/22/18 09:46 Dose: 10 mg Glucagon (Glucagen Diagnostic Kit) 0 mg IM STAT PRN; Protocol PRN Reason: Hypoglycemia Protocol Hydrocortisone (Cortizone 1% Cream) 0 gm TOP TID PRN PRN Reason: Rash Hydromorphone HCl (Dilaudid) 1 mg IVP Q3 PRN PRN Reason: Pain, SEVERE (8-10) Last Admin: 06/22/18 14:04 Dose: 1 mg Ferric Sodium Gluconate Complex 125 mg/ Sodium Chloride 110 mls @ 100 mls/hr IVPB Q24H [facility] Stop: 06/29/18 14:31 Last Admin: 06/22/18 14:05 Dose: 100 mls/hr Vancomycin HCl 1,500 mg/ (Sodium Chloride) 500 mls @ 166.6 mls/hr IVPB Q12H [facility] PRN Reason: Protocol Last Admin: 06/22/18 05:13 Dose: 166.6 mls/hr Insulin Human Regular (Novolin R) 0 unit SC Q6 [facility] PRN Reason: Protocol Last Admin: 06/22/18 11:47 Dose: Not Given Ipratropium [place] (Atrovent) 0.5 mg IH RQ6 [facility] Last Admin: 06/22/18 13:24 Dose: 0.5 mg Lactobacillus Acidophilus (Bacid Acidophilus) 1 cap PEG BID [facility] Last Admin: 06/22/18 09:46 Dose: 1 cap Loperamide HCl (Imodium) 1 mg PO Q2H PRN PRN Reason: Diarrhea Last Admin: 06/18/18 10:03 Dose: 1 mg Lorazepam (Ativan) 1 mg IVP BID [facility] Last Admin: 06/22/18 09:45 Dose: 1 mg Metoprolol Tartrate (Lopressor) 12.5 mg PEG BID [facility] Last Admin: 06/22/18 09:46 Dose: 12.5 mg Nicotine (Nicoderm Cq) 1 patch TD DAILY [facility] Last Admin: 06/22/18 09:46 Dose: 1 patch Ondansetron HCl (Zofran Inj) 4 mg IVP Q6H PRN PRN Reason: Nausea/Vomiting Last Admin: 06/21/18 09:47 Dose: 4 mg Pantoprazole Sodium (Protonix Susp) 40 mg PO Q24H [facility] Last Admin: 06/22/18 09:46 Dose: 40 mg Saliva Substitute (Mouth Kote 236 Ml) 0 ml MM Q6 PRN PRN Reason: Dry mouth Vitamin A (Vitamin A & D Oint Ud Foilpak) 1 ea TOP Q8 PRN PRN Reason: dry lips Last Admin: 05/20/18 11:10 Dose: 1 ea Vitamin E (Vitamin E 400 Units Cap) 400 intlu GT DAILY [facility] Last Admin: 06/22/18 09:46 Dose: 400 intlu - Labs Labs: 06/21/18 06:52 06/21/18 06:52 PT 14.3 SECONDS (9.7-12.2) H 06/10/18 07:05 INR 1.3 06/10/18 07:05 APTT 33 SECONDS (21-34) 05/25/18 06:16 - Constitutional Appears: No Acute Distress - Head Exam Head Exam: ATRAUMATIC, NORMAL INSPECTION, NORMOCEPHALIC - Eye Exam Eye Exam: EOMI, Normal appearance - ENT Exam ENT Exam: Mucous Membranes Moist, Normal Exam Additional comments: NGT in place - Neck Exam Neck Exam: Full ROM - Respiratory Exam Respiratory Exam: NORMAL BREATHING PATTERN. absent: Accessory Muscle Use, Respiratory Distress - GI/Abdominal Exam GI & Abdominal Exam: Soft. absent: Distended, Tenderness Additional comments: Wound vac in place. PEG in place. Tube feed. - Extremities Exam Extremities Exam: Full ROM - Neurological Exam Neurological Exam: Alert, Awake, Oriented x3 - Psychiatric Exam Psychiatric exam: Normal Affect, Normal Mood - Skin Skin Exam: Normal Color, Warm Assessment and Plan - Assessment and Plan (Free Text) Assessment: 38F s/p Binta-en-Y gastric bypass (2013) w/bowel ischemic 2/2 internal hernia POD#33 s/p ex lap, reduction of internal hernia, DANNI, drainage of abdominal collections, temporary abdominal closure & EGD POD#29 s/p re-exploration, resection of ileum & Binta limb including previous gastrojejunostomy, reversal of bypass, primary anastomosis of ileum-ileum, ileum -ileum, and ileum-jejunum. Gastrostomy tube in bypassed stomach, EGD Wound vac in place over midline incision Plan: Plan to change wound today 06/22 - Monitor wound vac output x 24 hours Monitor NGT output, continue NGT to low-intermittent wall suction Cont Tube feed FU labs encourage ambulation with assistance Encourage IS use Will plan appropriate date for surgery w/Dr. Mccray Will discuss with Dr. Cricket Banegas PGY-1 <Gómez Harley - Last Filed: 06/26/18 14:03> Objective - Vital Signs/Intake and Output Vital Signs (last 24 hours): Temp Pulse Resp BP Pulse Ox 97.9 F 80 18 114/79 97 06/26/18 07:00 06/26/18 07:00 06/26/18 07:00 06/26/18 07:00 06/26/18 07:00 Intake and Output: 06/26/18 06/26/18 06:59 18:59 Intake Total 1100 800 Output Total 170 Balance 930 800 - Medications Medications: Current Medications Acetaminophen (Tylenol 650mg/20.3ml Solution Ud) 975 mg GT Q8H PRN PRN Reason: Pain, Mild (1-3) Last Admin: 06/25/18 18:42 Dose: 975 mg Calcium Acetate (Phoslo) 667 mg GT TIDCC [facility] Last Admin: 06/26/18 11:02 Dose: 667 mg Cholestyramine Resin (Questran) 4 gm PO BID [facility] Last Admin: 06/26/18 10:10 Dose: 4 gm Dextrose (Dextrose 50% Inj) 0 ml IV STAT PRN; Protocol PRN Reason: Hypoglycemia Protocol Dextrose (Glutose 15) 0 gm PO ONCE PRN; Protocol PRN Reason: Hypoglycemia Protocol Enoxaparin Sodium (Lovenox) 40 mg SC DAILY [facility] Last Admin: 06/26/18 09:53 Dose: 40 mg Ergocalciferol (Drisdol 50,000 Intl Units Cap) 1 cap PO Q7D [facility] Stop: 07/20/18 10:01 Escitalopram Oxalate (Lexapro) 10 mg GT DAILY [facility] Last Admin: 06/26/18 10:57 Dose: 10 mg Gentamicin Sulfate (Gentamicin 0.1%) 0 gm TOP TID [facility] Last Admin: 06/26/18 13:43 Dose: 1 oin Glucagon (Glucagen Diagnostic Kit) 0 mg IM STAT PRN; Protocol PRN Reason: Hypoglycemia Protocol Hydrocortisone (Cortizone 1% Cream) 0 gm TOP TID PRN PRN Reason: Rash Hydromorphone HCl (Dilaudid) 1 mg IVP Q3 PRN PRN Reason: Pain, SEVERE (8-10) Last Admin: 06/26/18 12:48 Dose: 1 mg Ferric Sodium Gluconate Complex 125 mg/ Sodium Chloride 110 mls @ 100 mls/hr IVPB Q24H [facility] Stop: 06/29/18 14:31 Last Admin: 06/25/18 14:56 Dose: 100 mls/hr Vancomycin HCl 1,500 mg/ (Sodium Chloride) 500 mls @ 166.6 mls/hr IVPB Q12H [facility] PRN Reason: Protocol Last Admin: 06/26/18 04:45 Dose: 166.6 mls/hr Meropenem 1 gm/ Sodium (Chloride) 100 mls @ 100 mls/hr IVPB Q8H [facility] PRN Reason: Protocol Last Admin: 06/26/18 08:11 Dose: 100 mls/hr Insulin Human Regular (Novolin R) 0 unit SC Q6 [facility] PRN Reason: Protocol Last Admin: 06/26/18 11:33 Dose: Not Given Ipratropium [place] (Atrovent) 0.5 mg IH RQ6 [facility] Last Admin: 06/26/18 13:55 Dose: 0.5 mg Lactobacillus Acidophilus (Bacid Acidophilus) 1 cap PEG BID [facility] Last Admin: 06/26/18 10:57 Dose: 1 cap Loperamide HCl (Imodium) 1 mg PO Q2H PRN PRN Reason: Diarrhea Last Admin: 06/26/18 09:56 Dose: 1 mg Lorazepam (Ativan) 1 mg IVP BID [facility] Last Admin: 06/26/18 10:57 Dose: 1 mg Metoprolol Tartrate (Lopressor) 12.5 mg PEG BID [facility] Last Admin: 06/26/18 09:54 Dose: 12.5 mg Nicotine (Nicoderm Cq) 1 patch TD DAILY [facility] Last Admin: 06/26/18 09:53 Dose: 1 patch Ondansetron HCl (Zofran Inj) 4 mg IVP Q6H PRN PRN Reason: Nausea/Vomiting Last Admin: 06/26/18 10:01 Dose: 4 mg Pantoprazole Sodium (Protonix Susp) 40 mg PO Q24H [facility] Last Admin: 06/26/18 09:53 Dose: 40 mg Saliva Substitute (Mouth Kote 236 Ml) 0 ml MM Q6 PRN PRN Reason: Dry mouth Vitamin A (Vitamin A & D Oint Ud Foilpak) 1 ea TOP Q8 PRN PRN Reason: dry lips Vitamin E (Vitamin E 400 Units Cap) 400 intlu GT DAILY [facility] Last Admin: 06/26/18 09:54 Dose: 400 intlu - Labs Labs: 06/26/18 04:55 06/26/18 04:55 PT 14.3 SECONDS (9.7-12.2) H 06/10/18 07:05 INR 1.3 06/10/18 07:05 APTT 33 SECONDS (21-34) 05/25/18 06:16 Attending/Attestation - Attestation I have personally seen and examined this patient.: Yes I have fully participated in the care of the patient.: Yes I have reviewed all pertinent clinical information, including history, physical exam and plan: Yes Notes (Text): Pt was seen and examined at bedside Agree with above note and assessment Pt is clinically same Local wound care c.w current mx Plan d.w pt in detail
[2018-06-22] MEDS: Loperamide Hydrochloride 1 mg/5 ml Cup PO PRN (18:18)
[2018-06-23] MEDS: (Novolin R) Insulin Human Regular 100 units/ml vial SC SCH ×4 (00:06→17:16)
[2018-06-23] MEDS: HYDROmorphone 1 mg/ml ISec IVP PRN ×8 (02:12→23:57)
[2018-06-23] MEDS: Ipratropium 0.02% Inhal Soln (0.5 mg/2.5 ml) UD IH SCH ×3 (02:22→13:21)
--- NOTE | 2018-06-23 07:17 | CP.PCM.PN ---
<Esther Angulo - Last Filed: 06/23/18 15:07> Subjective - Date & Time of Evaluation Date of Evaluation: 06/23/18 Time of Evaluation: 07:15 - Subjective Subjective: PGY-1 Medicine Progress Note for Dr. Turk Patient was seen and examined today at bedside. Patient is in no acute distress. Nursing reports no overnight events. Patient endorses 4 episodes of bowel movement that she describes as watery and loose. Pain is tolerable on decreased pain regimen. Wound vac replaced by surgery team 06/22. Objective - Vital Signs/Intake and Output Vital Signs (last 24 hours): Temp Pulse Resp BP Pulse Ox 98.8 F 117 H 20 130/88 98 06/22/18 15:00 06/22/18 17:05 06/22/18 15:00 06/22/18 17:05 06/22/18 15:00 Intake and Output: 06/23/18 06/23/18 06:59 18:59 Intake Total 1400 Output Total 415 Balance 985 - Medications Medications: Current Medications Acetaminophen (Tylenol 650mg/20.3ml Solution Ud) 975 mg GT Q8 PRN PRN Reason: Pain, Mild (1-3) Last Admin: 06/21/18 18:29 Dose: 975 mg Cholestyramine Resin (Questran) 4 gm PO BID [facility] Last Admin: 06/22/18 18:03 Dose: 4 gm Dextrose (Dextrose 50% Inj) 0 ml IV STAT PRN; Protocol PRN Reason: Hypoglycemia Protocol Last Admin: 05/16/18 23:40 Dose: 50 ml Dextrose (Glutose 15) 0 gm PO ONCE PRN; Protocol PRN Reason: Hypoglycemia Protocol Enoxaparin Sodium (Lovenox) 40 mg SC DAILY [facility] Last Admin: 06/22/18 09:45 Dose: 40 mg Ergocalciferol (Drisdol 50,000 Intl Units Cap) 1 cap PO Q7D [facility] Stop: 07/20/18 10:31 Last Admin: 06/22/18 09:46 Dose: 1 cap Escitalopram Oxalate (Lexapro) 10 mg GT DAILY [facility] Last Admin: 06/22/18 09:46 Dose: 10 mg Glucagon (Glucagen Diagnostic Kit) 0 mg IM STAT PRN; Protocol PRN Reason: Hypoglycemia Protocol Hydrocortisone (Cortizone 1% Cream) 0 gm TOP TID PRN PRN Reason: Rash Hydromorphone HCl (Dilaudid) 1 mg IVP Q3 PRN PRN Reason: Pain, SEVERE (8-10) Last Admin: 06/23/18 05:08 Dose: 1 mg Ferric Sodium Gluconate Complex 125 mg/ Sodium Chloride 110 mls @ 100 mls/hr IVPB Q24H [facility] Stop: 06/29/18 14:31 Last Admin: 06/22/18 14:05 Dose: 100 mls/hr Vancomycin HCl 1,500 mg/ (Sodium Chloride) 500 mls @ 166.6 mls/hr IVPB Q12H [facility] PRN Reason: Protocol Last Admin: 06/23/18 05:11 Dose: 166.6 mls/hr Insulin Human Regular (Novolin R) 0 unit SC Q6 [facility] PRN Reason: Protocol Last Admin: 06/23/18 06:07 Dose: Not Given Ipratropium Bethesda (Atrovent) 0.5 mg IH RQ6 [facility] Last Admin: 06/23/18 02:22 Dose: Not Given Lactobacillus Acidophilus (Bacid Acidophilus) 1 cap PEG BID [facility] Last Admin: 06/22/18 18:03 Dose: 1 cap Loperamide HCl (Imodium) 1 mg PO Q2H PRN PRN Reason: Diarrhea Last Admin: 06/22/18 18:18 Dose: 1 mg Lorazepam (Ativan) 1 mg IVP BID [facility] Last Admin: 06/22/18 18:03 Dose: 1 mg Metoprolol Tartrate (Lopressor) 12.5 mg PEG BID [facility] Last Admin: 06/22/18 18:03 Dose: 12.5 mg Nicotine (Nicoderm Cq) 1 patch TD DAILY [facility] Last Admin: 06/22/18 09:46 Dose: 1 patch Ondansetron HCl (Zofran Inj) 4 mg IVP Q6H PRN PRN Reason: Nausea/Vomiting Last Admin: 06/22/18 18:03 Dose: 4 mg Pantoprazole Sodium (Protonix Susp) 40 mg PO Q24H [facility] Last Admin: 06/22/18 09:46 Dose: 40 mg Saliva Substitute (Mouth Kote 236 Ml) 0 ml MM Q6 PRN PRN Reason: Dry mouth Vitamin A (Vitamin A & D Oint Ud Foilpak) 1 ea TOP Q8 PRN PRN Reason: dry lips Last Admin: 05/20/18 11:10 Dose: 1 ea Vitamin E (Vitamin E 400 Units Cap) 400 intlu GT DAILY [facility] Last Admin: 06/22/18 09:46 Dose: 400 intlu - Labs Labs: 06/21/18 06:52 06/21/18 06:52 PT 14.3 SECONDS (9.7-12.2) H 06/10/18 07:05 INR 1.3 06/10/18 07:05 APTT 33 SECONDS (21-34) 05/25/18 06:16 - Additional Findings Additional findings: - Constitutional Appears: Non-toxic, No Acute Distress, Chronically Ill - Head Exam Head Exam: ATRAUMATIC, NORMOCEPHALIC - Eye Exam Eye Exam: EOMI, Normal appearance - ENT Exam ENT Exam: Mucous Membranes Moist, Normal Exam Additional comments: NGT in place draining > 700cc of clear yellow liquid. - Respiratory Exam Respiratory Exam: Clear to Ausculation Bilateral, NORMAL BREATHING PATTERN. absent: Rales, Rhonchi, Wheezes - Cardiovascular Exam Cardiovascular Exam: REGULAR RHYTHM, +S1, +S2. absent: Gallop, Rubs, Murmur - GI/Abdominal Exam GI & Abdominal Exam: Soft, Normal Bowel Sounds. absent: Firm, Guarding Additional comments: midline abdominal incision healing well. Wound vac covering air seal intact, tubing clear Gtube in place, flushing well - dressings c/d/i - Extremities Exam Extremities Exam: Full ROM, Normal Capillary Refill Additional comments: peripheral pulses palpable bilaterally (radial, DP, PT) R PICC line in place - Neurological Exam Neurological Exam: Alert, Awake, Normal Gait, Oriented x3 - Psychiatric Exam Psychiatric exam: Normal Affect, Normal Mood - Skin Skin Exam: Intact, Normal Color, Warm Assessment and Plan - Assessment and Plan (Free Text) Assessment: Assessment: 38F with a PMH of HTN, HLD, DM2, asthma s/p bowel resection (05/14, 05/16) 2/2 internal hernia s/p Yenni-en-Y gastric bypass in 2013 admitted for medical optimization prior to reversal of bypass. Of note, patient was evaluated later in the afternoon with myself and Dr. Turk. Patient denied eating ice chips and/or drinking water while using the restroom, however her NG tube was draining into canister. > 700cc of clear yellow liquid collected. Surgery made aware. Reinforced NPO status. Will monitor. Plan: Ischemic bowel disease secondary to internal hernias producing bowel obstruction Current Management: - Current drains include: NGT (have on intermittent suction per surgery), gastrostomy tube (replaced 06/10) - Repeat wound culture (06/13/18): Coag neg Staph, enterococcus raffinosus, Abx - sensative to vancomyocin - Continue vanco 1g Q12 - 06/22 Vanc troph 11.1 ideal range 15- 20, adjusted vanc to 1.5g q12 (first dose 06/18 13:00) - Repeat vanc trough 06/20 @ 12:30AM = 10.2 - Repeat vanc trough 06/22 @ 4:30AM (30 mins prior to 8th dose) = 11.1 - Dr. Harley (surgery) on the case Wound vac to continuous suction - replaced on 06/22 by surgery Following Bariatric surgeon (Dr. Mccray) recs-- Current recs no denominational of continuity operation until 5 weeks after 05/16 surgery Current drainage from mid-line incision possibly d/t leak of tube feed contents form around gastrostomy tube vs fistula -- wound vac in place Repeat wound culture (06/13/18): Coag neg Staph, enterococcus raffinosus, Abx - cipro to vancomyocin for coverage - Heme consulted: Dr. Cash for Fe status - appreciated recommendations Iron 17, TIBC 238, % sat 7, ferritin 14.5, pending retic count Cultures: New (06/22/18): Wound Culture with gram stain of abdominal incision: collected and pending results New (06/22/18): Wound Culture with gram stain of Peg site: collected and pending results Peritoneal Fluid (05/14/18): Pseudomonas Aeruginosa sensitive to Meropenem Wound Culture (05/23/18): Yudith Albicans Blood Culture (05/15/18, 05/22/18): no growth Urine Culture (05/22/18): no growth Incision Site (05/31/18): Enterococcus faecalis, Acinetobacter baumannii Stool Cultures (06/03/18): No salmonella, shigella, or campylobacteria isolates Repeat wound culture (06/13/18): Coag neg Staph, enterococcus raffinosus Antibiotics Continue Vancomycin 1gm IV Q12Hr (started 06/16 @ 12pm), goal vanc trough 15-20 Discontinued Cipro 400 mg IV q12hrs (started 06/02, last day 06/16/18) Completed Flagyl 500mg IVPB q8hrs (active since 05/15/18-06/19/18) Discontinued Meropenem 1gm IVPB q8hr (active since 05/15/18-05/27/18) Measure vitamin levels and replace as needed Vit D <12.8- vid D 50,000 unites q1wk x8 wks B12 707, wnl Folate 12.6, wnl Vit A 42, wnl Alpha Vit E 5.6, wnl Vit A, B1, B6, E levels reordered on 06/15. - VitB1: inappropriately submitted, 06/01 value acceptable - VitB6: 5.9, wnl - Tabitha, E collected Medication: Continue Tylenol 975 mg liq q8hrs Continue Dilaudad 1mg IV q3hrs PRN Continue Zofran 4mg IV q6hrs PRN Tachycardia, persistent (110s-130s)- possibly etiologies include pain, infection , anxiety -She is being treated for Left G Tube fluid infection. -Continue Ativan PRN -Continue Dilaudid on board to be used PRN. -Continue Metoprolol tartrate 5mg IV q6hrs with holding parameters (SBP <100, HR <60) Diarrhea, acute, improving- suspect secondary to PO intake by pt -C.Diff (05/22, 05/24, 05/28): negative -Stool O&P (05/25/18): negative -Stool leukocytes (05/25/18): negative -per ID continue Flagyl due to leak around wound vac -Imodium 1mg PO Q2H PRN Anxiety -Commercial Maintenance Technician consulted- pt initially refused but then accepted -Psychiatry consulted (Dr. Reyez)- managing Ativan -Continue Ativan 1mg IV BID -Continue Lexapro 10mg GT daily (started 05/31) Insomnia - Discontinue, Benadryl 25 mg IVP HS PRN, clinically not indicated Anemia, acute, stable, pt denies blood in stool -Patient received a total of 2 PRBC (on 05/16) and 4 FFP (on 05/15 and 05/16) -Iron 16, TIBC 205, %sat 4.7, ferritin 75.3 -Monitor CBC Q2D Thrombocytosis, improving (504)- suspect reactive to pain, surgery- Resolved -Monitory CBC Q2D Diabetes Mellitus, Type 2- controlled -From prior note: Admittedly non-compliant, has not taken Januvia for one year -Accuchecks q6hrs -Hypoglycemic protocol -ISS regular -HbA1c 5.8 -History of gastric bypass surgery Hypercholesterolemia- untreated - LDL <30, HDL 23, Chol 59, TG 195 (06/03/18) - LDL 38, HDL 14, Chol 104, TG 226 (05/19/18) - History of gastric bypass surgery - Questran 4gm PO BID History of Hypertension, controlled- since gastric bypass has not taken meds -Metoprolol 5mg IV q6hrs History Obesity- Resolved -s/p gastric bypass surgery in 2013 History of Asthma- Chronic -Atrovent q6hrs Nicotine use disorder- Chronic - From prior note: 1ppd x 20 yrs, 1/2ppd x3 yrs - Continue Nicoderm 1 patch TD QD Electrolyte Imbalance: hypokalemia, hypomagnesemia - resolved - continue to monitor with AM labs, replete as needed Leukocytosis, trending downwards- likely secondary to ischemic bowel secondary to small bowel obstruction and surgeries- Resolved - Cultures: Peritoneal Fluid (05/14/18): Pseudomonas Aeruginosa sensitive to Meropenem Wound Culture (05/23/18): Yudith albicans Blood Culture (05/15/18, 05/22/18): no growth Urine Culture (05/22/18): no growth Wound Cx from incision site 05/31: Enterococcus faecalis, Acinetobacter baumanii, on ciprofloxacin 400mg (started 06/02) - Monitor CBC Q2D Prophylaxis -Hydrocortisone 1% Cream topical TID for Right Upper Inner Arm macular rash- improved -Vitamin A&D topical q8hrs PRN for dry lips -Saliva substitute q6hrs PRN for dry mouth -IVF: not indicated -VTE ppx: Lovenox 40mg SC daily, SCDs; encourage ambulation -GI ppx: Protonix 40mg IV BID, Florastor BID -Code status: full code Dispo: PT consulted- working with patient daily, rec home PT with services. Will stay at [facility] until bypass reversal surgery. Pending Dr. Mccray recs. Patient seen and case discussed with Attending Physician, Dr. Burke Angulo, PGY-1 <Doretha Turk V - Last Filed: 06/24/18 07:29> Objective - Vital Signs/Intake and Output Vital Signs (last 24 hours): Temp Pulse Resp BP Pulse Ox 98.9 F 101 H 20 123/81 98 06/23/18 23:05 06/23/18 23:05 06/23/18 23:05 06/23/18 23:05 06/23/18 23:05 Intake and Output: 06/24/18 06/24/18 06:59 18:59 Intake Total 1400 Output Total 720 Balance 680 - Medications Medications: Current Medications Acetaminophen (Tylenol 650mg/20.3ml Solution Ud) 975 mg GT Q8 PRN PRN Reason: Pain, Mild (1-3) Last Admin: 06/21/18 18:29 Dose: 975 mg Cholestyramine Resin (Questran) 4 gm PO BID [facility] Last Admin: 06/23/18 17:15 Dose: 4 gm Dextrose (Dextrose 50% Inj) 0 ml IV STAT PRN; Protocol PRN Reason: Hypoglycemia Protocol Last Admin: 05/16/18 23:40 Dose: 50 ml Dextrose (Glutose 15) 0 gm PO ONCE PRN; Protocol PRN Reason: Hypoglycemia Protocol Enoxaparin Sodium (Lovenox) 40 mg SC DAILY [facility] Last Admin: 06/23/18 10:21 Dose: 40 mg Ergocalciferol (Drisdol 50,000 Intl Units Cap) 1 cap PO Q7D [facility] Stop: 07/20/18 10:31 Last Admin: 06/22/18 09:46 Dose: 1 cap Escitalopram Oxalate (Lexapro) 10 mg GT DAILY [facility] Last Admin: 06/23/18 10:21 Dose: 10 mg Glucagon (Glucagen Diagnostic Kit) 0 mg IM STAT PRN; Protocol PRN Reason: Hypoglycemia Protocol Hydrocortisone (Cortizone 1% Cream) 0 gm TOP TID PRN PRN Reason: Rash Hydromorphone HCl (Dilaudid) 1 mg IVP Q3 PRN PRN Reason: Pain, SEVERE (8-10) Last Admin: 06/24/18 06:05 Dose: 1 mg Ferric Sodium Gluconate Complex 125 mg/ Sodium Chloride 110 mls @ 100 mls/hr IVPB Q24H [facility] Stop: 06/29/18 14:31 Last Admin: 06/23/18 15:23 Dose: 100 mls/hr Vancomycin HCl 1,500 mg/ (Sodium Chloride) 500 mls @ 166.6 mls/hr IVPB Q12H [facility] PRN Reason: Protocol Last Admin: 06/24/18 05:11 Dose: 166.6 mls/hr Insulin Human Regular (Novolin R) 0 unit SC Q6 [facility] PRN Reason: Protocol Last Admin: 06/24/18 00:37 Dose: Not Given Ipratropium Bethesda (Atrovent) 0.5 mg IH RQ6 [facility] Last Admin: 06/24/18 01:02 Dose: Not Given Lactobacillus Acidophilus (Bacid Acidophilus) 1 cap PEG BID [facility] Last Admin: 06/23/18 17:15 Dose: 1 cap Loperamide HCl (Imodium) 1 mg PO Q2H PRN PRN Reason: Diarrhea Last Admin: 06/23/18 17:15 Dose: 1 mg Lorazepam (Ativan) 1 mg IVP BID [facility] Last Admin: 06/23/18 17:15 Dose: 1 mg Metoprolol Tartrate (Lopressor) 12.5 mg PEG BID [facility] Last Admin: 06/23/18 17:15 Dose: 12.5 mg Nicotine (Nicoderm Cq) 1 patch TD DAILY [facility] Last Admin: 06/23/18 10:21 Dose: 1 patch Ondansetron HCl (Zofran Inj) 4 mg IVP Q6H PRN PRN Reason: Nausea/Vomiting Last Admin: 06/24/18 06:10 Dose: 4 mg Pantoprazole Sodium (Protonix Susp) 40 mg PO Q24H [facility] Last Admin: 06/23/18 10:21 Dose: 40 mg Saliva Substitute (Mouth Kote 236 Ml) 0 ml MM Q6 PRN PRN Reason: Dry mouth Vitamin A (Vitamin A & D Oint Ud Foilpak) 1 ea TOP Q8 PRN PRN Reason: dry lips Last Admin: 05/20/18 11:10 Dose: 1 ea Vitamin E (Vitamin E 400 Units Cap) 400 intlu GT DAILY [facility] Last Admin: 06/23/18 10:21 Dose: 400 intlu - Labs Labs: 06/23/18 07:00 06/23/18 07:00 PT 14.3 SECONDS (9.7-12.2) H 06/10/18 07:05 INR 1.3 06/10/18 07:05 APTT 33 SECONDS (21-34) 05/25/18 06:16 Assessment and Plan (1) Ischemic bowel disease Status: Acute (2) Obesity (BMI 30-39.9) Status: Acute (3) Small bowel obstruction Status: Acute (4) Prophylactic measure Status: Acute Attending/Attestation - Attestation I have personally seen and examined this patient.: Yes I have fully participated in the care of the patient.: Yes I have reviewed all pertinent clinical information, including history, physical exam and plan: Yes Notes (Text): This is a late computer entry for 06/23/2018. Patient seen, examined and case discussed with day-time resident. Patient seen this afternoon with resident. Patient denies acute complaints. She reports that her wound site was changed and now she's back on wound VAC. We are awaiting cultures from June 22 to see if will change antibiotic regimen or not. She is currently on IV Ferrlecit to help restore iron. However I have also noted that in her NG tube canister that the fluid is higher than should be expected. I have reiterated to her again that she should not be drinking fluids at this will delay her surgery and I have indicated with her nurse as well who notes a prior chair shift the fluid level was around 200-50 but has come up by 3 lines. I have expressed to the medicine resident indicated to the surgery team at 2 for the patient to remain strict nothing by mouth if she does not comply and will put our on the [facility] system. Assessment/Plan (1) Ischemic bowel disease Assessment & Plan: * Dr. Harley (surgery) on the case-->help appreciated * Preoperative/intraoperative/postoperative management per surgery * Following Bariatric surgeon (Dr. Mccray) to determine reversal bariatric surgery * Continue wound vac to suction-->replaced today * Continue tube feeds for nutrition * Continue NGT to intermittent suction * Continue antibiotics, PRN pain medications * Dr. Alvarado (GI) on the case-->help appreciated * Dr. Rivera (ID) on the case-->help appreciated * Brief summary of: * Patient has had 2 bloody bowel movements started 05/14/18. Patient's rectal: blood. She had reported abdominal pain has worsening since night of admission. Patient required emergent surgical intervention on 05/14/18 and transferred to ICU. Per operative note (05/14/18): Diagnostic laparoscopy, Exploratory laparotomy , Reduction of internal hernia, Lysis of adhesions, Drainage of abdominal collections, temporary abdominal closure, EGD * Ischemia of yenni limb, internal hernia. Naveed drain stitched to distal common limb * Patient underwent surgery again on 05/16/18.Re-exploration, Small bowel resection of ileum, small bowel resection of Yenni limb with gastrojejunostomy, reversal of bypass, primary anastomosis of ileum-ileum, ileum-ileum, and ileum- jejunum, Gastrostomy tube in bypassed stomach, EGD. Patient extubated 05/16/18. Patient is pending surgery intervention to restore GI motility in 5 weeks pending nutritional status. Measure vitamin levels and replace as needed * Vit D <12.8- vit D 50,000 units q1wk x8 wks * Prealbumin 18.1 * B12 707 * Folate 12.6 * Vitamin A: 42 * Vitamin E: 5.6 (low)-->replete * Vitamin B6: 11.1 (normal) and Vitamin B1: 93 (from 06/01/18) * Drains included: NGT Tube in place, Ojeda in place of gastrostomy tube, left min removed 05/25/18; right min was removed 05/23/18; no ojeda; wound vac replaced on 06/22/18 * IV abx: * Flagyl 500mg IVPB Q8H (active since 05/15/18)- discontinued * Vancomycin 1.5 g IV piggyback every 12 hours * Continue to monitor Vanco trough and monitor renal function * Cultures: * Peritoneal Fluid : Pseudomonas Aeruginosa sensitive to Meropenem (05/15-05/27) * Wound Culture (05/23): Yudith Albican--->Diflucan since 05/22/18 until 05/30/18 * Wound culture #1 June 22 from surgical site: Pending result * We'll culture #2 June 22 from gastrostomy tube: Pending result * Incision site 05/31: Enterococcus faecalis, Acinetobacter baumannii---> Ciprofloxacin 400mg IVPB Q12H (active since 06/03/18) * Incision site 06/13/18: Coagulase Neg Staph, Enterococcus Raffinosus--> Vancomcycin 1.5g IVPB Q12H (active since 06/18/18; started on 06/16/18) * Blood culture (05/15/18): no growth after 5 days X2 * Blood culture (05/22/18): no growth after 5 days X2 * Urine culture: no growth * PRNS: * Tylenol 975 mg liq q8hrs * Dilaudid 1.5 mg IV q3hrs PRN-->Dilaudid 1mg IV Q3H PRN * Zofran 4mg IV q6hrs PRN * Ativan 1mg IV BID anxiety-->per psych * Diarrhea * Patient is Questran 4gm PO BID Status: Acute (2) Small bowel obstruction Assessment & Plan: * Secondary to hernia * Further details noted in #1 Status: Acute (3) Obesity (BMI 30-39.9) Assessment & Plan: * s/p gastric bypass surgery in 2013 * Operative note (2013): Yenni-en-Y gastric bypass surgery * Given nature of ischemic bowel affecting portioning of the gastric limb, she will need to wait at least 5 weeks to restoring GI motility when she is nutritionally optimized Status: Acute (4) Status post gastric bypass for obesity Assessment & Plan: * status post gastric bypass 2013 * Operative note (2013): Yenni-en-Y gastric bypass surgery * Patient noncomplaint with following up postoperative. Status: Acute (5) History of Asthma Assessment & Plan: * Patient not in acute exacerbation prior to OR * Atrovent Q6H (6) Diabetes Mellitus (Type 2); controlled Assessment & Plan: * From prior note: * Admittedly non-compliant - has not taken Januvia for one year * Accuchecks Q6H * Hypoglycemic protocol * HbA1c - 6.3 (03/10/17) * hgba1c: 5.8 * History of gastric bypass surgery (8) Hx of HTN (hypertension) Assessment & Plan: * Since Gastric Bypass has not taken meds (9) Hx of Hypothyroid Assessment & Plan: * From prior note: * Pt admits non-compliance (10) Hypercholesterolemia Assessment & Plan: * From prior note: * Pt not taking meds * LDL 138, HDL 67, Tchol 220, Trig 112 * History of gastric bypass surgery (11) Anxiety Assessment & Plan: * Psychiatry (Dr. 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 Assessment & Plan: * 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 and from my prior note from last hospitalization (13) Smoker Assessment & Plan: * From my prior note: 1ppd x 20 yrs, 1/2 ppd x 3 yrs * Nicoderm 1 patch TD patchy (14) Tachycardia Assessment & Plan: * Lopressor 12.5mg PO BID (15) Prophylactic measure Assessment & Plan: * Bacid Acidophilus 1 cap PEG BID * Lovenox 40mg subqdaily for DVT ppx * PICC line 06/01/18 * need cathflo given clogging 06/19/18 * protonix 40mg IV Qdaily * Vitamin A&D ointment 1 each top Q8H * NGT Tube * IR exchange of Ojeda to 24 hungarian gauge 06/10/18 * Wound vac 06/20/18 replaced * Dressing changed per surgery * Feed orders: * Patient is currently on Osmolite via G Tube which has the following components. * MCT Oil (benefits in situations with malabsorption and is low residue) * 1440 calories; 70 gm protein; 914 ml free water * Should at any time the patient require TPN then we can try the following options: * 83 ml/hr: 2100 tete, 100 gm protein * 63 ml/hr: 1575 tete, 75 gm protein * 20% Intrilipid every other day with either one of the TPN rates mentioned above Status: Acute Disposition: Awaiting coordination from surgery and bariatric surgery for reversal since there is GI dysmotility. Patient is on vancomycin for abdominal wound infection since 06/16/18. Patient had 2 new wound cultures obtained 1 from surgery site second from the NG tube on June 22. Patient is currently on IV Ferrlecit to help replace iron stores. We will continue to monitor. We have reiterated to the patient to remain strict nothing by mouth and have echo at this nursing staff as well as to my resident. Patient is fully aware that this could delay her surgery and she has been reminded by myself daily.
[2018-06-23 07:28] LABS: BASO # 0.1 K/uL (0.0-0.2); BASO % 0.9 % (0.0-2.0); EOS # 0.4 K/uL (0.0-0.7); EOS % 5.4 % (0.0-4.0); HEMOGLOBIN 8.7 g/dL (11.0-16.0); LYMPH # 1.8 K/uL (1.0-4.3); LYMPH % 23.3 % (20.0-40.0); MEAN CORPUSCULAR HEMOGLOBIN 28.3 pg (27.0-31.0); MEAN CORPUSCULAR HGB CONC 33.3 g/dL (33.0-37.0); MEAN PLATELET VOLUME 6.9 fL (7.2-11.7); MONO # 0.5 K/uL (0.0-0.8); MONO % 6.4 % (0.0-10.0); RBC 3.07 Mil/uL (3.80-5.20); RED CELL DISTRIBUTION WIDTH 17.8 % (11.5-14.5); WHITE BLOOD COUNT 7.9 K/uL (4.8-10.8)
[2018-06-23 07:36] LABS: BLOOD UREA NITROGEN 3 mg/dL (7-17); GFR NON-AFRICAN AMERICAN > 60
[2018-06-23 07:37] LABS: ALB/GLOB RATIO 0.9 (1.0-2.1); ALBUMIN 2.7 g/dL (3.5-5.0); ALT/SGPT 25 U/L (9-52); AST/SGOT 17 U/L (14-36); CALCIUM 8.3 mg/dl (8.6-10.4)
[2018-06-23] MEDS: Cholestyramine 4 gm/Pkt UD PO SCH ×2 (10:21→17:15)
[2018-06-23] MEDS: Lactobacillus Acidophilus 500 MU Cap PEG SCH ×2 (10:21→17:15)
[2018-06-23] MEDS: Enoxaparin 40 mg Syringe SC SCH (10:21)
[2018-06-23] MEDS: Pantoprazole 40 mg Susp UD PO SCH (10:21)
[2018-06-23] MEDS: Ferric Sodium Gluconat Complex 125 MG in Sodium Chloride 0.9% 100 ML IVPB SCH (15:23)
[2018-06-23] MEDS: Loperamide Hydrochloride 1 mg/5 ml Cup PO PRN (17:15)
--- NOTE | 2018-06-23 17:39 | CP.PCM.PN ---
Subjective - Date & Time of Evaluation Date of Evaluation: 06/23/18 Time of Evaluation: 13:00 - Subjective Subjective: dictated Objective - Vital Signs/Intake and Output Vital Signs (last 24 hours): Temp Pulse Resp BP Pulse Ox 98.7 F 85 20 124/87 97 06/23/18 15:00 06/23/18 17:12 06/23/18 15:00 06/23/18 17:12 06/23/18 15:00 Intake and Output: 06/23/18 06/23/18 06:59 18:59 Intake Total 1400 100 Output Total 415 505 Balance 985 -405 - Medications Medications: Current Medications Acetaminophen (Tylenol 650mg/20.3ml Solution Ud) 975 mg GT Q8 PRN PRN Reason: Pain, Mild (1-3) Last Admin: 06/21/18 18:29 Dose: 975 mg Cholestyramine Resin (Questran) 4 gm PO BID [facility] Last Admin: 06/23/18 17:15 Dose: 4 gm Dextrose (Dextrose 50% Inj) 0 ml IV STAT PRN; Protocol PRN Reason: Hypoglycemia Protocol Last Admin: 05/16/18 23:40 Dose: 50 ml Dextrose (Glutose 15) 0 gm PO ONCE PRN; Protocol PRN Reason: Hypoglycemia Protocol Enoxaparin Sodium (Lovenox) 40 mg SC DAILY [facility] Last Admin: 06/23/18 10:21 Dose: 40 mg Ergocalciferol (Drisdol 50,000 Intl Units Cap) 1 cap PO Q7D [facility] Stop: 07/20/18 10:31 Last Admin: 06/22/18 09:46 Dose: 1 cap Escitalopram Oxalate (Lexapro) 10 mg GT DAILY [facility] Last Admin: 06/23/18 10:21 Dose: 10 mg Glucagon (Glucagen Diagnostic Kit) 0 mg IM STAT PRN; Protocol PRN Reason: Hypoglycemia Protocol Hydrocortisone (Cortizone 1% Cream) 0 gm TOP TID PRN PRN Reason: Rash Hydromorphone HCl (Dilaudid) 1 mg IVP Q3 PRN PRN Reason: Pain, SEVERE (8-10) Last Admin: 06/23/18 17:34 Dose: 1 mg Ferric Sodium Gluconate Complex 125 mg/ Sodium Chloride 110 mls @ 100 mls/hr IVPB Q24H [facility] Stop: 06/29/18 14:31 Last Admin: 06/23/18 15:23 Dose: 100 mls/hr Vancomycin HCl 1,500 mg/ (Sodium Chloride) 500 mls @ 166.6 mls/hr IVPB Q12H [facility] PRN Reason: Protocol Last Admin: 06/23/18 17:13 Dose: 166.6 mls/hr Insulin Human Regular (Novolin R) 0 unit SC Q6 [facility] PRN Reason: Protocol Last Admin: 06/23/18 17:16 Dose: Not Given Ipratropium [place] (Atrovent) 0.5 mg IH RQ6 [facility] Last Admin: 06/23/18 13:21 Dose: 0.5 mg Lactobacillus Acidophilus (Bacid Acidophilus) 1 cap PEG BID [facility] Last Admin: 06/23/18 17:15 Dose: 1 cap Loperamide HCl (Imodium) 1 mg PO Q2H PRN PRN Reason: Diarrhea Last Admin: 06/23/18 17:15 Dose: 1 mg Lorazepam (Ativan) 1 mg IVP BID [facility] Last Admin: 06/23/18 17:15 Dose: 1 mg Metoprolol Tartrate (Lopressor) 12.5 mg PEG BID [facility] Last Admin: 06/23/18 17:15 Dose: 12.5 mg Nicotine (Nicoderm Cq) 1 patch TD DAILY [facility] Last Admin: 06/23/18 10:21 Dose: 1 patch Ondansetron HCl (Zofran Inj) 4 mg IVP Q6H PRN PRN Reason: Nausea/Vomiting Last Admin: 06/23/18 08:26 Dose: 4 mg Pantoprazole Sodium (Protonix Susp) 40 mg PO Q24H [facility] Last Admin: 06/23/18 10:21 Dose: 40 mg Saliva Substitute (Mouth Kote 236 Ml) 0 ml MM Q6 PRN PRN Reason: Dry mouth Vitamin A (Vitamin A & D Oint Ud Foilpak) 1 ea TOP Q8 PRN PRN Reason: dry lips Last Admin: 05/20/18 11:10 Dose: 1 ea Vitamin E (Vitamin E 400 Units Cap) 400 intlu GT DAILY [facility] Last Admin: 06/23/18 10:21 Dose: 400 intlu - Labs Labs: 06/23/18 07:00 06/23/18 07:00 PT 14.3 SECONDS (9.7-12.2) H 06/10/18 07:05 INR 1.3 08/31/18 07:05 APTT 33 SECONDS (21-34) 05/25/18 06:16
--- NOTE | 2018-06-23 23:07 | PN ---
DATE: 06/23/2018 The patient, Dolores Dong, was seen today. She continues have the NG tube. She is still getting feeding through the jejunostomy tube, but now her middle wound had a larger dressing with the wound VAC. She told me that somehow it opened up more, and it has been sent for culture again from the jejunostomy site as well as from the wound. The patient remains on IV antibiotics at this time, but she was only getting vancomycin based on the culture reports. She is on cholestyramine also. She has partial . 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 She is on Lovenox. She is on ergocalciferol. Otherwise, she appears stable, but the wound looks bigger and with the bigger dressing of wound VAC and her medication. She is only on vancomycin 1 g every 12 hours. The last cultures did not have gram negative, but wound culture is pending. Before that, she did have Acinetobacter, so will be cautious and may have to add a gram negative coverage soon. We will await for the culture reports. We will follow. Guero Rivrea MD
--- NOTE | 2018-06-23 23:41 | CP.PCM.PN ---
Subjective - Date & Time of Evaluation Date of Evaluation: 06/22/18 Time of Evaluation: 14:00 - Subjective Subjective: No complaints. Objective - Vital Signs/Intake and Output Vital Signs (last 24 hours): Temp Pulse Resp BP Pulse Ox 98.7 F 85 20 124/87 97 06/23/18 15:00 06/23/18 17:12 06/23/18 15:00 06/23/18 17:12 06/23/18 15:00 Intake and Output: 06/23/18 06/24/18 18:59 06:59 Intake Total 100 900 Output Total 505 620 Balance -405 280 - Medications Medications: Current Medications Acetaminophen (Tylenol 650mg/20.3ml Solution Ud) 975 mg GT Q8 PRN PRN Reason: Pain, Mild (1-3) Last Admin: 06/21/18 18:29 Dose: 975 mg Cholestyramine Resin (Questran) 4 gm PO BID [facility] Last Admin: 06/23/18 17:15 Dose: 4 gm Dextrose (Dextrose 50% Inj) 0 ml IV STAT PRN; Protocol PRN Reason: Hypoglycemia Protocol Last Admin: 05/16/18 23:40 Dose: 50 ml Dextrose (Glutose 15) 0 gm PO ONCE PRN; Protocol PRN Reason: Hypoglycemia Protocol Enoxaparin Sodium (Lovenox) 40 mg SC DAILY [facility] Last Admin: 06/23/18 10:21 Dose: 40 mg Ergocalciferol (Drisdol 50,000 Intl Units Cap) 1 cap PO Q7D [facility] Stop: 07/20/18 10:31 Last Admin: 06/22/18 09:46 Dose: 1 cap Escitalopram Oxalate (Lexapro) 10 mg GT DAILY [facility] Last Admin: 06/23/18 10:21 Dose: 10 mg Glucagon (Glucagen Diagnostic Kit) 0 mg IM STAT PRN; Protocol PRN Reason: Hypoglycemia Protocol Hydrocortisone (Cortizone 1% Cream) 0 gm TOP TID PRN PRN Reason: Rash Hydromorphone HCl (Dilaudid) 1 mg IVP Q3 PRN PRN Reason: Pain, SEVERE (8-10) Last Admin: 06/23/18 20:47 Dose: 1 mg Ferric Sodium Gluconate Complex 125 mg/ Sodium Chloride 110 mls @ 100 mls/hr IVPB Q24H [facility] Stop: 09/19/18 14:31 Last Admin: 06/23/18 15:23 Dose: 100 mls/hr Vancomycin HCl 1,500 mg/ (Sodium Chloride) 500 mls @ 166.6 mls/hr IVPB Q12H [facility] PRN Reason: Protocol Last Admin: 06/23/18 17:13 Dose: 166.6 mls/hr Insulin Human Regular (Novolin R) 0 unit SC Q6 [facility] PRN Reason: Protocol Last Admin: 06/23/18 17:16 Dose: Not Given Ipratropium [place] (Atrovent) 0.5 mg IH RQ6 [facility] Last Admin: 06/23/18 13:21 Dose: 0.5 mg Lactobacillus Acidophilus (Bacid Acidophilus) 1 cap PEG BID [facility] Last Admin: 06/23/18 17:15 Dose: 1 cap Loperamide HCl (Imodium) 1 mg PO Q2H PRN PRN Reason: Diarrhea Last Admin: 06/23/18 17:15 Dose: 1 mg Lorazepam (Ativan) 1 mg IVP BID [facility] Last Admin: 06/23/18 17:15 Dose: 1 mg Metoprolol Tartrate (Lopressor) 12.5 mg PEG BID [facility] Last Admin: 06/23/18 17:15 Dose: 12.5 mg Nicotine (Nicoderm Cq) 1 patch TD DAILY [facility] Last Admin: 06/23/18 10:21 Dose: 1 patch Ondansetron HCl (Zofran Inj) 4 mg IVP Q6H PRN PRN Reason: Nausea/Vomiting Last Admin: 06/23/18 08:26 Dose: 4 mg Pantoprazole Sodium (Protonix Susp) 40 mg PO Q24H [facility] Last Admin: 06/23/18 10:21 Dose: 40 mg Saliva Substitute (Mouth Kote 236 Ml) 0 ml MM Q6 PRN PRN Reason: Dry mouth Vitamin A (Vitamin A & D Oint Ud Foilpak) 1 ea TOP Q8 PRN PRN Reason: dry lips Last Admin: 05/20/18 11:10 Dose: 1 ea Vitamin E (Vitamin E 400 Units Cap) 400 intlu GT DAILY [facility] Last Admin: 06/23/18 10:21 Dose: 400 intlu - Labs Labs: 06/23/18 07:00 06/23/18 07:00 PT 14.3 SECONDS (9.7-12.2) H 06/10/18 07:05 INR 1.3 06/10/18 07:05 APTT 33 SECONDS (21-34) 05/25/18 06:16 - Head Exam Head Exam: ATRAUMATIC - Eye Exam Eye Exam: Normal appearance - ENT Exam ENT Exam: Mucous Membranes Dry - Respiratory Exam Respiratory Exam: NORMAL BREATHING PATTERN - Cardiovascular Exam Cardiovascular Exam: +S1, +S2 - GI/Abdominal Exam GI & Abdominal Exam: Normal Bowel Sounds Assessment and Plan (1) Iron deficiency anemia Assessment & Plan: likely malabsorption from gastric bypass surgery on IV ferrlecit Status: Acute
--- NOTE | 2018-06-23 23:43 | CP.PCM.PN ---
Subjective - Date & Time of Evaluation Date of Evaluation: 06/23/18 Time of Evaluation: 16:00 - Subjective Subjective: No complaints. Objective - Vital Signs/Intake and Output Vital Signs (last 24 hours): Temp Pulse Resp BP Pulse Ox 98.7 F 85 20 124/87 97 06/23/18 15:00 06/23/18 17:12 06/23/18 15:00 06/23/18 17:12 06/23/18 15:00 Intake and Output: 06/23/18 06/24/18 18:59 06:59 Intake Total 100 900 Output Total 505 620 Balance -405 280 - Medications Medications: Current Medications Acetaminophen (Tylenol 650mg/20.3ml Solution Ud) 975 mg GT Q8 PRN PRN Reason: Pain, Mild (1-3) Last Admin: 06/21/18 18:29 Dose: 975 mg Cholestyramine Resin (Questran) 4 gm PO BID [facility] Last Admin: 06/23/18 17:15 Dose: 4 gm Dextrose (Dextrose 50% Inj) 0 ml IV STAT PRN; Protocol PRN Reason: Hypoglycemia Protocol Last Admin: 05/16/18 23:40 Dose: 50 ml Dextrose (Glutose 15) 0 gm PO ONCE PRN; Protocol PRN Reason: Hypoglycemia Protocol Enoxaparin Sodium (Lovenox) 40 mg SC DAILY [facility] Last Admin: 06/23/18 10:21 Dose: 40 mg Ergocalciferol (Drisdol 50,000 Intl Units Cap) 1 cap PO Q7D [facility] Stop: 07/20/18 10:31 Last Admin: 06/22/18 09:46 Dose: 1 cap Escitalopram Oxalate (Lexapro) 10 mg GT DAILY [facility] Last Admin: 06/23/18 10:21 Dose: 10 mg Glucagon (Glucagen Diagnostic Kit) 0 mg IM STAT PRN; Protocol PRN Reason: Hypoglycemia Protocol Hydrocortisone (Cortizone 1% Cream) 0 gm TOP TID PRN PRN Reason: Rash Hydromorphone HCl (Dilaudid) 1 mg IVP Q3 PRN PRN Reason: Pain, SEVERE (8-10) Last Admin: 06/23/18 20:47 Dose: 1 mg Ferric Sodium Gluconate Complex 125 mg/ Sodium Chloride 110 mls @ 100 mls/hr IVPB Q24H [facility] Stop: 09/19/18 14:31 Last Admin: 06/23/18 15:23 Dose: 100 mls/hr Vancomycin HCl 1,500 mg/ (Sodium Chloride) 500 mls @ 166.6 mls/hr IVPB Q12H [facility] PRN Reason: Protocol Last Admin: 06/23/18 17:13 Dose: 166.6 mls/hr Insulin Human Regular (Novolin R) 0 unit SC Q6 [facility] PRN Reason: Protocol Last Admin: 06/23/18 17:16 Dose: Not Given Ipratropium [place] (Atrovent) 0.5 mg IH RQ6 [facility] Last Admin: 06/23/18 13:21 Dose: 0.5 mg Lactobacillus Acidophilus (Bacid Acidophilus) 1 cap PEG BID [facility] Last Admin: 06/23/18 17:15 Dose: 1 cap Loperamide HCl (Imodium) 1 mg PO Q2H PRN PRN Reason: Diarrhea Last Admin: 06/23/18 17:15 Dose: 1 mg Lorazepam (Ativan) 1 mg IVP BID [facility] Last Admin: 06/23/18 17:15 Dose: 1 mg Metoprolol Tartrate (Lopressor) 12.5 mg PEG BID [facility] Last Admin: 06/23/18 17:15 Dose: 12.5 mg Nicotine (Nicoderm Cq) 1 patch TD DAILY [facility] Last Admin: 06/23/18 10:21 Dose: 1 patch Ondansetron HCl (Zofran Inj) 4 mg IVP Q6H PRN PRN Reason: Nausea/Vomiting Last Admin: 06/23/18 08:26 Dose: 4 mg Pantoprazole Sodium (Protonix Susp) 40 mg PO Q24H [facility] Last Admin: 06/23/18 10:21 Dose: 40 mg Saliva Substitute (Mouth Kote 236 Ml) 0 ml MM Q6 PRN PRN Reason: Dry mouth Vitamin A (Vitamin A & D Oint Ud Foilpak) 1 ea TOP Q8 PRN PRN Reason: dry lips Last Admin: 05/20/18 11:10 Dose: 1 ea Vitamin E (Vitamin E 400 Units Cap) 400 intlu GT DAILY [facility] Last Admin: 06/23/18 10:21 Dose: 400 intlu - Labs Labs: 06/23/18 07:00 06/23/18 07:00 PT 14.3 SECONDS (9.7-12.2) H 06/10/18 07:05 INR 1.3 06/10/18 07:05 APTT 33 SECONDS (21-34) 05/25/18 06:16 - Head Exam Head Exam: ATRAUMATIC - Eye Exam Eye Exam: Normal appearance - ENT Exam ENT Exam: Mucous Membranes Dry - Respiratory Exam Respiratory Exam: NORMAL BREATHING PATTERN - Cardiovascular Exam Cardiovascular Exam: +S1, +S2 - GI/Abdominal Exam GI & Abdominal Exam: Normal Bowel Sounds Assessment and Plan (1) Iron deficiency anemia Assessment & Plan: secondary to malabsorption from gastric bypass on IV iron Status: Acute
[2018-06-24] MEDS: (Novolin R) Insulin Human Regular 100 units/ml vial SC SCH ×4 (00:37→17:27)
[2018-06-24] MEDS: Ipratropium 0.02% Inhal Soln (0.5 mg/2.5 ml) UD IH SCH ×4 (01:02→19:10)
[2018-06-24] MEDS: HYDROmorphone 1 mg/ml ISec IVP PRN ×7 (03:04→22:07)
--- NOTE | 2018-06-24 07:08 | CP.PCM.PN ---
Addendum entered and electronically signed by Esther Angulo DO 06/24/18 21: 32: Addendum to PGY1 note from 06/24: Vancomycin troph completed =14.4 Original Note: <Esther Angulo - Last Filed: 06/24/18 15:27> Subjective - Date & Time of Evaluation Date of Evaluation: 06/24/18 Time of Evaluation: 07:07 - Subjective Subjective: PGY-1 Medicine Progress Note for Dr. Turk Patient was seen and examined today at bedside. Patient is in no acute distress. Nursing reports no overnight events. Patient endorses 1 episode of bowel movement today that she describes as watery and loose. Patient did not start her period as of today. Pain is tolerable on decreased pain regimen. Wound vac replaced by surgery team 06/22. Objective - Vital Signs/Intake and Output Vital Signs (last 24 hours): Temp Pulse Resp BP Pulse Ox 98.9 F 101 H 20 123/81 98 06/23/18 23:05 06/23/18 23:05 06/23/18 23:05 06/23/18 23:05 06/23/18 23:05 Intake and Output: 06/24/18 06/24/18 06:59 18:59 Intake Total 1400 Output Total 720 Balance 680 - Medications Medications: Current Medications Acetaminophen (Tylenol 650mg/20.3ml Solution Ud) 975 mg GT Q8 PRN PRN Reason: Pain, Mild (1-3) Last Admin: 06/21/18 18:29 Dose: 975 mg Cholestyramine Resin (Questran) 4 gm PO BID [facility] Last Admin: 06/23/18 17:15 Dose: 4 gm Dextrose (Dextrose 50% Inj) 0 ml IV STAT PRN; Protocol PRN Reason: Hypoglycemia Protocol Last Admin: 05/16/18 23:40 Dose: 50 ml Dextrose (Glutose 15) 0 gm PO ONCE PRN; Protocol PRN Reason: Hypoglycemia Protocol Enoxaparin Sodium (Lovenox) 40 mg SC DAILY [facility] Last Admin: 06/23/18 10:21 Dose: 40 mg Ergocalciferol (Drisdol 50,000 Intl Units Cap) 1 cap PO Q7D [facility] Stop: 07/20/18 10:31 Last Admin: 06/22/18 09:46 Dose: 1 cap Escitalopram Oxalate (Lexapro) 10 mg GT DAILY [facility] Last Admin: 06/23/18 10:21 Dose: 10 mg Glucagon (Glucagen Diagnostic Kit) 0 mg IM STAT PRN; Protocol PRN Reason: Hypoglycemia Protocol Hydrocortisone (Cortizone 1% Cream) 0 gm TOP TID PRN PRN Reason: Rash Hydromorphone HCl (Dilaudid) 1 mg IVP Q3 PRN PRN Reason: Pain, SEVERE (8-10) Last Admin: 06/24/18 06:05 Dose: 1 mg Ferric Sodium Gluconate Complex 125 mg/ Sodium Chloride 110 mls @ 100 mls/hr IVPB Q24H [facility] Stop: 06/29/18 14:31 Last Admin: 06/23/18 15:23 Dose: 100 mls/hr Vancomycin HCl 1,500 mg/ (Sodium Chloride) 500 mls @ 166.6 mls/hr IVPB Q12H [facility] PRN Reason: Protocol Last Admin: 06/24/18 05:11 Dose: 166.6 mls/hr Insulin Human Regular (Novolin R) 0 unit SC Q6 [facility] PRN Reason: Protocol Last Admin: 06/24/18 00:37 Dose: Not Given Ipratropium Midway (Atrovent) 0.5 mg IH RQ6 [facility] Last Admin: 06/24/18 01:02 Dose: Not Given Lactobacillus Acidophilus (Bacid Acidophilus) 1 cap PEG BID [facility] Last Admin: 06/23/18 17:15 Dose: 1 cap Loperamide HCl (Imodium) 1 mg PO Q2H PRN PRN Reason: Diarrhea Last Admin: 06/23/18 17:15 Dose: 1 mg Lorazepam (Ativan) 1 mg IVP BID [facility] Last Admin: 06/23/18 17:15 Dose: 1 mg Metoprolol Tartrate (Lopressor) 12.5 mg PEG BID [facility] Last Admin: 06/23/18 17:15 Dose: 12.5 mg Nicotine (Nicoderm Cq) 1 patch TD DAILY [facility] Last Admin: 06/23/18 10:21 Dose: 1 patch Ondansetron HCl (Zofran Inj) 4 mg IVP Q6H PRN PRN Reason: Nausea/Vomiting Last Admin: 06/24/18 06:10 Dose: 4 mg Pantoprazole Sodium (Protonix Susp) 40 mg PO Q24H [facility] Last Admin: 06/23/18 10:21 Dose: 40 mg Saliva Substitute (Mouth Kote 236 Ml) 0 ml MM Q6 PRN PRN Reason: Dry mouth Vitamin A (Vitamin A & D Oint Ud Foilpak) 1 ea TOP Q8 PRN PRN Reason: dry lips Last Admin: 05/20/18 11:10 Dose: 1 ea Vitamin E (Vitamin E 400 Units Cap) 400 intlu GT DAILY [facility] Last Admin: 06/23/18 10:21 Dose: 400 intlu - Labs Labs: 06/23/18 07:00 06/23/18 07:00 PT 14.3 SECONDS (9.7-12.2) H 06/10/18 07:05 INR 1.3 06/10/18 07:05 APTT 33 SECONDS (21-34) 05/25/18 06:16 - Additional Findings Additional findings: - Constitutional Appears: Non-toxic, No Acute Distress, Chronically Ill - Head Exam Head Exam: ATRAUMATIC, NORMOCEPHALIC - Eye Exam Eye Exam: EOMI, Normal appearance - ENT Exam ENT Exam: Mucous Membranes Moist, Normal Exam Additional comments: NGT in place draining > 700cc of clear yellow liquid. - Respiratory Exam Respiratory Exam: Clear to Ausculation Bilateral, NORMAL BREATHING PATTERN. absent: Rales, Rhonchi, Wheezes - Cardiovascular Exam Cardiovascular Exam: REGULAR RHYTHM, +S1, +S2. absent: Gallop, Rubs, Murmur - GI/Abdominal Exam GI & Abdominal Exam: Soft, Normal Bowel Sounds. absent: Firm, Guarding Additional comments: midline abdominal incision healing well. Wound vac covering air seal intact, tubing clear Gtube in place, flushing well - dressings c/d/i - Extremities Exam Extremities Exam: Full ROM, Normal Capillary Refill Additional comments: peripheral pulses palpable bilaterally (radial, DP, PT) R PICC line in place - Neurological Exam Neurological Exam: Alert, Awake, Normal Gait, Oriented x3 - Psychiatric Exam Psychiatric exam: Normal Affect, Normal Mood - Skin Skin Exam: Intact, Normal Color, Warm Assessment and Plan - Assessment and Plan (Free Text) Assessment: 38F with a PMH of HTN, HLD, DM2, asthma s/p bowel resection (05/14, 05/16) 2/2 internal hernia s/p Yenni-en-Y gastric bypass in 2013 admitted for medical optimization prior to reversal of bypass. Of note, NG tube was draining into canister. > 700cc of clear yellow liquid collected on 06/22. Surgery made aware. Reinforced NPO status. Patient with 100cc collected in canister as of this morning. Per surgery note: Spoke to patient about importance of not drinking/eating as she is in discontinuity and this can lead to life threatening situations. Awaiting Dr. Mccray's response to coordinate take back surgery. Plan: Ischemic bowel disease secondary to internal hernias producing bowel obstruction Current Management: - Current drains include: NGT (have on intermittent suction per surgery), gastrostomy tube (replaced 06/10) - Repeat wound culture (06/13/18): Coag neg Staph, enterococcus raffinosus, Abx - sensative to vancomyocin - Continue vanco 1g Q12 - 06/22 Vanc troph 11.1 ideal range 15- 20, adjusted vanc to 1.5g q12 (first dose 06/18 13:00) - Repeat vanc trough 06/20 @ 12:30AM = 10.2 - Repeat vanc trough 06/22 @ 4:30AM (30 mins prior to 8th dose) = 11.1 - Repeat vanc trough 06/24: ordered - Dr. Harley (surgery) on the case Wound vac to continuous suction - replaced on 06/22 by surgery Following Bariatric surgeon (Dr. Mccray) recs-- Current recs no zoroastrian of continuity operation until 5 weeks after 05/16 surgery Current drainage from mid-line incision possibly d/t leak of tube feed contents form around gastrostomy tube vs fistula -- wound vac in place Repeat wound culture (06/13/18): Coag neg Staph, enterococcus raffinosus, Abx - cipro to vancomyocin for coverage - Heme consulted: Dr. Cash for Fe status - appreciated recommendations Iron 17, TIBC 238, % sat 7, ferritin 14.5, pending retic count Cultures: New (06/22/18): Wound Culture prelim gram stain of abdominal incision: gram negative rods. Final results pending. New (06/22/18): Wound Culture final gram stain of Peg site: Pseudomonas Peritoneal Fluid (05/14/18): Pseudomonas Aeruginosa sensitive to Meropenem Wound Culture (05/23/18): Yudith Albicans Blood Culture (05/15/18, 05/22/18): no growth Urine Culture (05/22/18): no growth Incision Site (05/31/18): Enterococcus faecalis, Acinetobacter baumannii Stool Cultures (06/03/18): No salmonella, shigella, or campylobacteria isolates Repeat wound culture (06/13/18): Coag neg Staph, enterococcus raffinosus Antibiotics Continue Vancomycin 1gm IV Q12Hr (started 06/16 @ 12pm), goal vanc trough 15-20 Discontinued Cipro 400 mg IV q12hrs (started 06/02, last day 06/16/18) Completed Flagyl 500mg IVPB q8hrs (active since 05/15/18-06/19/18) Discontinued Meropenem 1gm IVPB q8hr (active since 05/15/18-05/27/18) Measure vitamin levels and replace as needed Vit D <12.8- vid D 50,000 unites q1wk x8 wks B12 707, wnl Folate 12.6, wnl Vit A 42, wnl Alpha Vit E 5.6, wnl Vit A, B1, B6, E levels reordered on 06/15. - VitB1: inappropriately submitted, 06/01 value acceptable - VitB6: 5.9, wnl - Tabitha, E collected Medication: Continue Tylenol 975 mg liq q8hrs Continue Dilaudad 1mg IV q3hrs PRN Continue Zofran 4mg IV q6hrs PRN Tachycardia, persistent (110s-130s)- possibly etiologies include pain, infection , anxiety -She is being treated for Left G Tube fluid infection. -Continue Ativan PRN -Continue Dilaudid on board to be used PRN. -Continue Metoprolol tartrate 5mg IV q6hrs with holding parameters (SBP <100, HR <60) Diarrhea, acute, improving- suspect secondary to PO intake by pt -C.Diff (05/22, 05/24, 05/28): negative -Stool O&P (05/25/18): negative -Stool leukocytes (05/25/18): negative -per ID continue Flagyl due to leak around wound vac -Imodium 1mg PO Q2H PRN Anxiety -Information Security Manager consulted- pt initially refused but then accepted -Psychiatry consulted (Dr. Reyez)- managing Ativan -Continue Ativan 1mg IV BID -Continue Lexapro 10mg GT daily (started 05/31) Insomnia - Discontinue, Benadryl 25 mg IVP HS PRN, clinically not indicated Anemia, acute, stable, pt denies blood in stool -Patient received a total of 2 PRBC (on 05/16) and 4 FFP (on 05/15 and 05/16) -Iron 16, TIBC 205, %sat 4.7, ferritin 75.3 -Monitor CBC Q2D Thrombocytosis, improving (504)- suspect reactive to pain, surgery- Resolved -Monitory CBC Q2D Diabetes Mellitus, Type 2- controlled -From prior note: Admittedly non-compliant, has not taken Januvia for one year -Accuchecks q6hrs -Hypoglycemic protocol -ISS regular -HbA1c 5.8 -History of gastric bypass surgery Hypercholesterolemia- untreated - LDL <30, HDL 23, Chol 59, TG 195 (06/03/18) - LDL 38, HDL 14, Chol 104, TG 226 (05/19/18) - History of gastric bypass surgery - Questran 4gm PO BID History of Hypertension, controlled- since gastric bypass has not taken meds -Metoprolol 5mg IV q6hrs History Obesity- Resolved -s/p gastric bypass surgery in 2013 History of Asthma- Chronic -Atrovent q6hrs Nicotine use disorder- Chronic - From prior note: 1ppd x 20 yrs, 1/2ppd x3 yrs - Continue Nicoderm 1 patch TD QD Electrolyte Imbalance: hypokalemia, hypomagnesemia - resolved - continue to monitor with AM labs, replete as needed Leukocytosis, trending downwards- likely secondary to ischemic bowel secondary to small bowel obstruction and surgeries- Resolved - Cultures: Peritoneal Fluid (05/14/18): Pseudomonas Aeruginosa sensitive to Meropenem Wound Culture (05/23/18): Yudith albicans Blood Culture (05/15/18, 05/22/18): no growth Urine Culture (05/22/18): no growth Wound Cx from incision site 05/31: Enterococcus faecalis, Acinetobacter baumanii, on ciprofloxacin 400mg (started 06/02) - Monitor CBC Q2D Prophylaxis -Hydrocortisone 1% Cream topical TID for Right Upper Inner Arm macular rash- improved -Vitamin A&D topical q8hrs PRN for dry lips -Saliva substitute q6hrs PRN for dry mouth -IVF: not indicated -VTE ppx: Lovenox 40mg SC daily, SCDs; encourage ambulation -GI ppx: Protonix 40mg IV BID, Florastor BID -Code status: full code Dispo: PT consulted- working with patient daily, rec home PT with services. Will stay at [facility] until bypass reversal surgery. Pending Dr. Mccray recs. Patient seen and case discussed with Attending Physician, Dr. Burke Angulo, PGY-1 <Doretha Turk V - Last Filed: 06/25/18 09:08> Objective - Vital Signs/Intake and Output Vital Signs (last 24 hours): Temp Pulse Resp BP Pulse Ox 98.3 F 82 18 113/80 98 06/25/18 07:30 06/25/18 07:30 06/25/18 07:30 06/25/18 07:30 06/25/18 07:30 Intake and Output: 06/25/18 06/25/18 06:59 18:59 Intake Total 2000 Output Total 200 Balance 1800 - Medications Medications: Current Medications Acetaminophen (Tylenol 650mg/20.3ml Solution Ud) 975 mg GT Q8 PRN PRN Reason: Pain, Mild (1-3) Last Admin: 06/24/18 11:34 Dose: 975 mg Cholestyramine Resin (Questran) 4 gm PO BID [facility] Last Admin: 06/24/18 17:41 Dose: 4 gm Dextrose (Dextrose 50% Inj) 0 ml IV STAT PRN; Protocol PRN Reason: Hypoglycemia Protocol Dextrose (Glutose 15) 0 gm PO ONCE PRN; Protocol PRN Reason: Hypoglycemia Protocol Enoxaparin Sodium (Lovenox) 40 mg SC DAILY [facility] Ergocalciferol (Drisdol 50,000 Intl Units Cap) 1 cap PO Q7D [facility] Stop: 07/20/18 10:01 Escitalopram Oxalate (Lexapro) 10 mg GT DAILY [facility] Last Admin: 06/24/18 09:50 Dose: 10 mg Glucagon (Glucagen Diagnostic Kit) 0 mg IM STAT PRN; Protocol PRN Reason: Hypoglycemia Protocol Hydrocortisone (Cortizone 1% Cream) 0 gm TOP TID PRN PRN Reason: Rash Hydromorphone HCl (Dilaudid) 1 mg IVP Q3 PRN PRN Reason: Pain, SEVERE (8-10) Last Admin: 06/25/18 08:01 Dose: 1 mg Ferric Sodium Gluconate Complex 125 mg/ Sodium Chloride 110 mls @ 100 mls/hr IVPB Q24H [facility] Stop: 06/29/18 14:31 Last Admin: 06/24/18 16:06 Dose: 100 mls/hr Vancomycin HCl 1,500 mg/ (Sodium Chloride) 500 mls @ 166.6 mls/hr IVPB Q12H [facility] PRN Reason: Protocol Last Admin: 06/25/18 04:52 Dose: 166.6 mls/hr Meropenem 1 gm/ Sodium (Chloride) 100 mls @ 100 mls/hr IVPB Q8H [facility] PRN Reason: Protocol Last Admin: 06/25/18 08:07 Dose: 100 mls/hr Insulin Human Regular (Novolin R) 0 unit SC Q6 [facility] PRN Reason: Protocol Last Admin: 06/25/18 06:48 Dose: Not Given Ipratropium Midway (Atrovent) 0.5 mg IH RQ6 [facility] Last Admin: 06/25/18 07:24 Dose: Not Given Lactobacillus Acidophilus (Bacid Acidophilus) 1 cap PEG BID [facility] Last Admin: 06/24/18 18:54 Dose: 1 cap Loperamide HCl (Imodium) 1 mg PO Q2H PRN PRN Reason: Diarrhea Last Admin: 06/24/18 09:49 Dose: 1 mg Lorazepam (Ativan) 1 mg IVP BID [facility] Last Admin: 06/24/18 17:42 Dose: 1 mg Metoprolol Tartrate (Lopressor) 12.5 mg PEG BID [facility] Last Admin: 06/24/18 17:42 Dose: 12.5 mg Nicotine (Nicoderm Cq) 1 patch TD DAILY [facility] Last Admin: 06/24/18 09:49 Dose: 1 patch Ondansetron HCl (Zofran Inj) 4 mg IVP Q6H PRN PRN Reason: Nausea/Vomiting Last Admin: 06/25/18 08:00 Dose: 4 mg Pantoprazole Sodium (Protonix Susp) 40 mg PO Q24H [facility] Saliva Substitute (Mouth Kote 236 Ml) 0 ml MM Q6 PRN PRN Reason: Dry mouth Vitamin A (Vitamin A & D Oint Ud Foilpak) 1 ea TOP Q8 PRN PRN Reason: dry lips Vitamin E (Vitamin E 400 Units Cap) 400 intlu GT DAILY [facility] Last Admin: 06/24/18 09:50 Dose: 400 intlu - Labs Labs: 06/24/18 07:35 06/24/18 07:35 PT 14.3 SECONDS (9.7-12.2) H 06/10/18 07:05 INR 1.3 06/10/18 07:05 APTT 33 SECONDS (21-34) 05/25/18 06:16 Assessment and Plan (1) Ischemic bowel disease Status: Acute (2) Obesity (BMI 30-39.9) Status: Acute (3) Small bowel obstruction Status: Acute (4) Prophylactic measure Status: Acute Attending/Attestation - Attestation I have personally seen and examined this patient.: Yes I have fully participated in the care of the patient.: Yes I have reviewed all pertinent clinical information, including history, physical exam and plan: Yes Notes (Text): This is a late computer entry for 06/24/2018. Patient seen, examined and case discussed with day-time resident. Patient seen this afternoon with resident. Patient denies acute complaints. There is less output from the NGT than yesterday's amount. We have reiterated to the patient she has to remain strict nothing by mouth because we do not want to delay surgery for her. She is aware. We are following up wound cultures from Jun 22. Patient is on Vancomycin. Infectious disease has added back Meropenem later this evening. Vancomycin trough: 14.4 She is currently on IV Ferrlecit to help restore iron. Patient is due to have her menstruation this week but has not her period yet. Assessment/Plan (1) Ischemic bowel disease Assessment & Plan: * Dr. Harley (surgery) on the case-->help appreciated * Preoperative/intraoperative/postoperative management per surgery * Following Bariatric surgeon (Dr. Mccray) to determine reversal bariatric surgery * Continue wound vac to suction-->replaced 06/22 * Continue tube feeds for nutrition * Continue NGT to intermittent suction * Continue antibiotics, PRN pain medications * Dr. Alvarado (GI) on the case-->help appreciated * Dr. Rivera (ID) on the case-->help appreciated * Brief summary of: * Patient has had 2 bloody bowel movements started 05/14/18. Patient's rectal: blood. She had reported abdominal pain has worsening since night of admission. Patient required emergent surgical intervention on 05/14/18 and transferred to ICU. Per operative note (05/14/18): Diagnostic laparoscopy, Exploratory laparotomy , Reduction of internal hernia, Lysis of adhesions, Drainage of abdominal collections, temporary abdominal closure, EGD * Ischemia of yenni limb, internal hernia. Naveed drain stitched to distal common limb * Patient underwent surgery again on 05/16/18.Re-exploration, Small bowel resection of ileum, small bowel resection of Yenni limb with gastrojejunostomy, reversal of bypass, primary anastomosis of ileum-ileum, ileum-ileum, and ileum- jejunum, Gastrostomy tube in bypassed stomach, EGD. Patient extubated 05/16/18. Patient is pending surgery intervention to restore GI motility in 5 weeks pending nutritional status. Measure vitamin levels and replace as needed * Vit D <12.8- vit D 50,000 units q1wk x8 wks * Prealbumin 18.1 * B12 707 * Folate 12.6 * Vitamin A: 42 * Vitamin E: 5.6 (low)-->replete * Vitamin B6: 11.1 (normal) and Vitamin B1: 93 (from 06/01/18) * Drains included: NGT Tube in place, Ojeda in place of gastrostomy tube, left min removed 05/25/18; right min was removed 05/23/18; no ojeda; wound vac replaced on 06/22/18 * IV abx: * Flagyl 500mg IVPB Q8H (active since 05/15/18)- discontinued * Vancomycin 1.5 g IV piggyback every 12 hours (since 06/16/18)-->vancomycin trough: 14.4 * Continue to monitor Vanco trough and monitor renal function * Cultures: * Peritoneal Fluid : Pseudomonas Aeruginosa sensitive to Meropenem (05/15-05/27) * Wound Culture (05/23): Yudith Albican--->Diflucan since 05/22/18 until 05/30/18 * Wound culture #1 Abdomen: June 22: gram negative wolf * Wound culture #2 Peg site june 22: Pseudomonas Aeruginosa-->sensitive to Meropenem (active 06/24/18) * Incision site 05/31: Enterococcus faecalis, Acinetobacter baumannii---> Ciprofloxacin 400mg IVPB Q12H (active since 06/03/18-06/16/18) * Incision site 06/13/18: Coagulase Neg Staph, Enterococcus Raffinosus--> Vancomcycin 1.5g IVPB Q12H (active since 06/18/18; started on 06/16/18) * Blood culture (05/15/18): no growth after 5 days X2 * Blood culture (05/22/18): no growth after 5 days X2 * Urine culture: no growth * PRNS: * Tylenol 975 mg liq q8hrs * Dilaudid 1.5 mg IV q3hrs PRN-->Dilaudid 1mg IV Q3H PRN * Zofran 4mg IV q6hrs PRN * Ativan 1mg IV BID anxiety-->per psych * Diarrhea * Patient is Questran 4gm PO BID Status: Acute (2) Small bowel obstruction Assessment & Plan: * Secondary to hernia * Further details noted in #1 Status: Acute (3) Obesity (BMI 30-39.9) Assessment & Plan: * s/p gastric bypass surgery in 2013 * Operative note (2013): Yenni-en-Y gastric bypass surgery * Given nature of ischemic bowel affecting portioning of the gastric limb, she will need to wait at least 5 weeks to restoring GI motility when she is nutritionally optimized Status: Acute (4) Status post gastric bypass for obesity Assessment & Plan: * status post gastric bypass 2013 * Operative note (2013): Yenni-en-Y gastric bypass surgery * Patient noncomplaint with following up postoperative. Status: Acute (5) History of Asthma Assessment & Plan: * Patient not in acute exacerbation prior to OR * Atrovent Q6H (6) Diabetes Mellitus (Type 2); controlled Assessment & Plan: * From prior note: * Admittedly non-compliant - has not taken Januvia for one year * Accuchecks Q6H * Hypoglycemic protocol * HbA1c - 6.3 (03/10/17) * hgba1c: 5.8 * History of gastric bypass surgery (8) Hx of HTN (hypertension) Assessment & Plan: * Since Gastric Bypass has not taken meds (9) Hx of Hypothyroid Assessment & Plan: * From prior note: * Pt admits non-compliance (10) Hypercholesterolemia Assessment & Plan: * From prior note: * Pt not taking meds * LDL 138, HDL 67, Tchol 220, Trig 112 * History of gastric bypass surgery (11) Anxiety Assessment & Plan: * Psychiatry (Dr. 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 Assessment & Plan: * 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 and from my prior note from last hospitalization (13) Smoker Assessment & Plan: * From my prior note: 1ppd x 20 yrs, 1/2 ppd x 3 yrs * Nicoderm 1 patch TD patchy (14) Tachycardia Assessment & Plan: * Lopressor 12.5mg PO BID (15) Prophylactic measure Assessment & Plan: * Bacid Acidophilus 1 cap PEG BID * Lovenox 40mg subqdaily for DVT ppx * PICC line 06/01/18 * need cathflo given clogging 06/19/18 * protonix 40mg IV Qdaily * Vitamin A&D ointment 1 each top Q8H * NGT Tube * IR exchange of Ojeda to 24 vietnamese gauge 06/10/18 * Wound vac 06/20/18 replaced * Dressing changed per surgery * Feed orders: * Patient is currently on Osmolite via G Tube which has the following components. * MCT Oil (benefits in situations with malabsorption and is low residue) * 1440 calories; 70 gm protein; 914 ml free water * Should at any time the patient require TPN then we can try the following options: * 83 ml/hr: 2100 tete, 100 gm protein * 63 ml/hr: 1575 tete, 75 gm protein * 20% Intrilipid every other day with either one of the TPN rates mentioned above Status: Acute Disposition: Awaiting coordination from surgery and bariatric surgery for reversal since there is GI dysmotility. Patient is on vancomycin for abdominal wound infection since 06/16/18. Patient had 2 new wound cultures obtained 1 from surgery site second from the NG tube on June 22. Patient is currently on IV Ferrlecit to help replace iron stores. We will continue to monitor. We have reiterated to the patient to remain strict nothing by mouth and have echo at this nursing staff as well as to my resident. Patient is fully aware that this could delay her surgery and she has been reminded by myself daily.
[2018-06-24 07:46] LABS: BASO # 0.1 K/uL (0.0-0.2); EOS # 0.4 K/uL (0.0-0.7); EOS % 4.7 % (0.0-4.0); HEMOGLOBIN 8.7 g/dL (11.0-16.0); LYMPH # 2.3 K/uL (1.0-4.3); LYMPH % 26.4 % (20.0-40.0); MEAN CELL VOLUME 85.8 fL (81.0-99.0); MEAN CORPUSCULAR HEMOGLOBIN 28.2 pg (27.0-31.0); MEAN CORPUSCULAR HGB CONC 32.9 g/dL (33.0-37.0); MEAN PLATELET VOLUME 7.2 fL (7.2-11.7); MONO # 0.6 K/uL (0.0-0.8); NEUT # 5.3 K/uL (1.8-7.0); NEUT % 60.9 % (50.0-75.0); NRBC % 0.2 % (0.0-2.0); RBC 3.06 Mil/uL (3.80-5.20); WHITE BLOOD COUNT 8.6 K/uL (4.8-10.8)
[2018-06-24 07:57] LABS: ALBUMIN 2.8 g/dL (3.5-5.0); BLOOD UREA NITROGEN 3 mg/dL (7-17); CALCIUM 8.3 mg/dl (8.6-10.4); GFR NON-AFRICAN AMERICAN > 60
[2018-06-24 07:58] LABS: ALT/SGPT 22 U/L (9-52); AST/SGOT 16 U/L (14-36)
[2018-06-24] MEDS: Lactobacillus Acidophilus 500 MU Cap PEG SCH ×2 (09:49→18:54)
[2018-06-24] MEDS: Loperamide Hydrochloride 1 mg/5 ml Cup PO PRN (09:49)
[2018-06-24] MEDS: Pantoprazole 40 mg Susp UD PO SCH (09:49)
[2018-06-24] MEDS: Enoxaparin 40 mg Syringe SC SCH (09:49)
[2018-06-24] MEDS: Acetaminophen 650mg/20.3ml solution UD GT PRN (11:34)
--- NOTE | 2018-06-24 11:45 | CP.PCM.PN ---
<Morris Connolly - Last Filed: 06/24/18 22:50> Subjective - Date & Time of Evaluation Date of Evaluation: 06/24/18 Time of Evaluation: 10:30 - Subjective Subjective: Pt seen and examined at bedside this am. States she has been tolerating iron infusions well, denies any associated side effects. Denies dark stool or any active bleeding. 12-point ROS obtained, otherwise neg as per pt. Objective - Vital Signs/Intake and Output Vital Signs (last 24 hours): Temp Pulse Resp BP Pulse Ox 98.6 F 71 20 125/75 97 06/24/18 07:00 06/24/18 07:00 06/24/18 07:00 06/24/18 07:00 06/24/18 07:00 Intake and Output: 06/24/18 06/24/18 06:59 18:59 Intake Total 1400 Output Total 720 Balance 680 - Medications Medications: Current Medications Acetaminophen (Tylenol 650mg/20.3ml Solution Ud) 975 mg GT Q8 PRN PRN Reason: Pain, Mild (1-3) Last Admin: 06/24/18 11:34 Dose: 975 mg Cholestyramine Resin (Questran) 4 gm PO BID [facility] Last Admin: 06/23/18 17:15 Dose: 4 gm Dextrose (Dextrose 50% Inj) 0 ml IV STAT PRN; Protocol PRN Reason: Hypoglycemia Protocol Last Admin: 05/16/18 23:40 Dose: 50 ml Dextrose (Glutose 15) 0 gm PO ONCE PRN; Protocol PRN Reason: Hypoglycemia Protocol Enoxaparin Sodium (Lovenox) 40 mg SC DAILY [facility] Last Admin: 06/24/18 09:49 Dose: 40 mg Ergocalciferol (Drisdol 50,000 Intl Units Cap) 1 cap PO Q7D [facility] Stop: 07/20/18 10:31 Last Admin: 06/22/18 09:46 Dose: 1 cap Escitalopram Oxalate (Lexapro) 10 mg GT DAILY [facility] Last Admin: 06/24/18 09:50 Dose: 10 mg Glucagon (Glucagen Diagnostic Kit) 0 mg IM STAT PRN; Protocol PRN Reason: Hypoglycemia Protocol Hydrocortisone (Cortizone 1% Cream) 0 gm TOP TID PRN PRN Reason: Rash Hydromorphone HCl (Dilaudid) 1 mg IVP Q3 PRN PRN Reason: Pain, SEVERE (8-10) Last Admin: 06/24/18 09:05 Dose: 1 mg Ferric Sodium Gluconate Complex 125 mg/ Sodium Chloride 110 mls @ 100 mls/hr IVPB Q24H [facility] Stop: 06/29/18 14:31 Last Admin: 06/23/18 15:23 Dose: 100 mls/hr Vancomycin HCl 1,500 mg/ (Sodium Chloride) 500 mls @ 166.6 mls/hr IVPB Q12H [facility] PRN Reason: Protocol Last Admin: 06/24/18 05:11 Dose: 166.6 mls/hr Insulin Human Regular (Novolin R) 0 unit SC Q6 [facility] PRN Reason: Protocol Last Admin: 06/24/18 07:00 Dose: Not Given Ipratropium [place] (Atrovent) 0.5 mg IH RQ6 [facility] Last Admin: 06/24/18 08:05 Dose: 0.5 mg Lactobacillus Acidophilus (Bacid Acidophilus) 1 cap PEG BID [facility] Last Admin: 06/24/18 09:49 Dose: 1 cap Loperamide HCl (Imodium) 1 mg PO Q2H PRN PRN Reason: Diarrhea Last Admin: 06/24/18 09:49 Dose: 1 mg Lorazepam (Ativan) 1 mg IVP BID [facility] Last Admin: 06/24/18 09:46 Dose: 1 mg Metoprolol Tartrate (Lopressor) 12.5 mg PEG BID [facility] Last Admin: 06/24/18 09:49 Dose: 12.5 mg Nicotine (Nicoderm Cq) 1 patch TD DAILY [facility] Last Admin: 06/24/18 09:49 Dose: 1 patch Ondansetron HCl (Zofran Inj) 4 mg IVP Q6H PRN PRN Reason: Nausea/Vomiting Last Admin: 06/24/18 11:35 Dose: 4 mg Pantoprazole Sodium (Protonix Susp) 40 mg PO Q24H [facility] Last Admin: 06/24/18 09:49 Dose: 40 mg Saliva Substitute (Mouth Kote 236 Ml) 0 ml MM Q6 PRN PRN Reason: Dry mouth Vitamin A (Vitamin A & D Oint Ud Foilpak) 1 ea TOP Q8 PRN PRN Reason: dry lips Last Admin: 05/20/18 11:10 Dose: 1 ea Vitamin E (Vitamin E 400 Units Cap) 400 intlu GT DAILY [facility] Last Admin: 06/24/18 09:50 Dose: 400 intlu - Labs Labs: 06/24/18 07:35 06/24/18 07:35 PT 14.3 SECONDS (9.7-12.2) H 06/10/18 07:05 INR 1.3 06/10/18 07:05 APTT 33 SECONDS (21-34) 05/25/18 06:16 - Constitutional Appears: Non-toxic, No Acute Distress - Head Exam Head Exam: ATRAUMATIC, NORMAL INSPECTION - Eye Exam Eye Exam: EOMI, Normal appearance, PERRL - ENT Exam ENT Exam: Mucous Membranes Moist - Respiratory Exam Respiratory Exam: Clear to Ausculation Bilateral, NORMAL BREATHING PATTERN - Cardiovascular Exam Cardiovascular Exam: REGULAR RHYTHM, +S1, +S2 - GI/Abdominal Exam GI & Abdominal Exam: Soft. absent: Distended, Guarding - Extremities Exam Extremities Exam: Normal Capillary Refill - Neurological Exam Neurological Exam: Alert, Awake, CN II-XII Intact, Oriented x3 - Skin Skin Exam: Dry, Intact, Warm. absent: Pallor, Petechiae, Rash Assessment and Plan - Assessment and Plan (Free Text) Assessment: 38F PMHx chronic abd pain, gastric bypass, s/p debridement of bowel x2 for internal hernia, with iron-deficiency anemia. Plan: Iron-deficiency anemia -2/2 malabsorption from gastric bypass surgery -C/w IV iron Further recs as per Dr. Cash, attending. Morris Connolly DO PGY-1 <Addison Cash - Last Filed: 06/26/18 18:23> Objective - Vital Signs/Intake and Output Vital Signs (last 24 hours): Temp Pulse Resp BP Pulse Ox 98.1 F 88 20 112/81 98 06/26/18 15:00 06/26/18 15:00 06/26/18 15:00 06/26/18 15:00 06/26/18 15:00 Intake and Output: 06/26/18 06/26/18 06:59 18:59 Intake Total 1100 950 Output Total 170 415 Balance 930 535 - Medications Medications: Current Medications Acetaminophen (Tylenol 650mg/20.3ml Solution Ud) 975 mg GT Q8H PRN PRN Reason: Pain, Mild (1-3) Last Admin: 06/25/18 18:42 Dose: 975 mg Calcium Acetate (Phoslo) 667 mg GT TIDCC [facility] Last Admin: 06/26/18 17:54 Dose: 667 mg Cholestyramine Resin (Questran) 4 gm PO BID [facility] Last Admin: 06/26/18 18:00 Dose: 4 gm Dextrose (Dextrose 50% Inj) 0 ml IV STAT PRN; Protocol PRN Reason: Hypoglycemia Protocol Dextrose (Glutose 15) 0 gm PO ONCE PRN; Protocol PRN Reason: Hypoglycemia Protocol Enoxaparin Sodium (Lovenox) 40 mg SC DAILY [facility] Last Admin: 06/26/18 09:53 Dose: 40 mg Ergocalciferol (Drisdol 50,000 Intl Units Cap) 1 cap PO Q7D [facility] Stop: 07/20/18 10:01 Escitalopram Oxalate (Lexapro) 10 mg GT DAILY [facility] Last Admin: 06/26/18 10:57 Dose: 10 mg Gentamicin Sulfate (Gentamicin 0.1%) 0 gm TOP TID [facility] Last Admin: 06/26/18 18:01 Dose: 1 oin Glucagon (Glucagen Diagnostic Kit) 0 mg IM STAT PRN; Protocol PRN Reason: Hypoglycemia Protocol Hydrocortisone (Cortizone 1% Cream) 0 gm TOP TID PRN PRN Reason: Rash Hydromorphone HCl (Dilaudid) 1 mg IVP Q3 PRN PRN Reason: Pain, SEVERE (8-10) Last Admin: 06/26/18 16:14 Dose: 1 mg Ferric Sodium Gluconate Complex 125 mg/ Sodium Chloride 110 mls @ 100 mls/hr IVPB Q24H [facility] Stop: 06/29/18 14:31 Last Admin: 06/26/18 15:05 Dose: 100 mls/hr Vancomycin HCl 1,500 mg/ (Sodium Chloride) 500 mls @ 166.6 mls/hr IVPB Q12H [facility] PRN Reason: Protocol Last Admin: 06/26/18 17:55 Dose: 166.6 mls/hr Meropenem 1 gm/ Sodium (Chloride) 100 mls @ 100 mls/hr IVPB Q8H [facility] PRN Reason: Protocol Last Admin: 06/26/18 16:30 Dose: 100 mls/hr Insulin Human Regular (Novolin R) 0 unit SC Q6 [facility] PRN Reason: Protocol Last Admin: 06/26/18 18:00 Dose: Not Given Ipratropium [place] (Atrovent) 0.5 mg IH RQ6 [facility] Last Admin: 06/26/18 13:55 Dose: 0.5 mg Lactobacillus Acidophilus (Bacid Acidophilus) 1 cap PEG BID [facility] Last Admin: 06/26/18 17:54 Dose: 1 cap Loperamide HCl (Imodium) 1 mg PO Q2H PRN PRN Reason: Diarrhea Last Admin: 06/26/18 09:56 Dose: 1 mg Lorazepam (Ativan) 1 mg IVP BID [facility] Last Admin: 06/26/18 17:54 Dose: 1 mg Metoprolol Tartrate (Lopressor) 12.5 mg PEG BID [facility] Last Admin: 06/26/18 17:54 Dose: 12.5 mg Nicotine (Nicoderm Cq) 1 patch TD DAILY [facility] Last Admin: 06/26/18 09:53 Dose: 1 patch Ondansetron HCl (Zofran Inj) 4 mg IVP Q6H PRN PRN Reason: Nausea/Vomiting Last Admin: 06/26/18 10:01 Dose: 4 mg Pantoprazole Sodium (Protonix Susp) 40 mg PO Q24H [facility] Last Admin: 06/26/18 09:53 Dose: 40 mg Saliva Substitute (Mouth Kote 236 Ml) 0 ml MM Q6 PRN PRN Reason: Dry mouth Vitamin A (Vitamin A & D Oint Ud Foilpak) 1 ea TOP Q8 PRN PRN Reason: dry lips Vitamin E (Vitamin E 400 Units Cap) 400 intlu GT DAILY [facility] Last Admin: 06/26/18 09:54 Dose: 400 intlu - Labs Labs: 06/26/18 04:55 06/26/18 04:55 PT 14.3 SECONDS (9.7-12.2) H 06/10/18 07:05 INR 1.3 06/10/18 07:05 APTT 33 SECONDS (21-34) 05/25/18 06:16 Assessment and Plan (1) Iron deficiency anemia Status: Acute - Assessment and Plan (Free Text) Plan: Pt seen and examined, agree with residents note.
[2018-06-24] MEDS: Cholestyramine 4 gm/Pkt UD PO SCH ×2 (12:24→17:41)
--- NOTE | 2018-06-24 14:48 | CP.PCM.PN ---
<Duran Jimenez - Last Filed: 06/24/18 14:54> Subjective - Date & Time of Evaluation Date of Evaluation: 06/24/18 Time of Evaluation: 06:30 - Subjective Subjective: Patient seen and examined. No complaints. Scant output from NGT. Denies headache /dizziness. Wound vac nicely sealed. Objective - Vital Signs/Intake and Output Vital Signs (last 24 hours): Temp Pulse Resp BP Pulse Ox 98.6 F 71 20 125/75 97 06/24/18 07:00 06/24/18 07:00 06/24/18 07:00 06/24/18 07:00 06/24/18 07:00 Intake and Output: 06/24/18 06/24/18 06:59 18:59 Intake Total 1400 600 Output Total 720 Balance 680 600 - Medications Medications: Current Medications Acetaminophen (Tylenol 650mg/20.3ml Solution Ud) 975 mg GT Q8 PRN PRN Reason: Pain, Mild (1-3) Last Admin: 06/24/18 11:34 Dose: 975 mg Cholestyramine Resin (Questran) 4 gm PO BID [facility] Last Admin: 06/24/18 12:24 Dose: 4 gm Dextrose (Dextrose 50% Inj) 0 ml IV STAT PRN; Protocol PRN Reason: Hypoglycemia Protocol Last Admin: 05/16/18 23:40 Dose: 50 ml Dextrose (Glutose 15) 0 gm PO ONCE PRN; Protocol PRN Reason: Hypoglycemia Protocol Enoxaparin Sodium (Lovenox) 40 mg SC DAILY [facility] Last Admin: 06/24/18 09:49 Dose: 40 mg Ergocalciferol (Drisdol 50,000 Intl Units Cap) 1 cap PO Q7D [facility] Stop: 07/20/18 10:31 Last Admin: 06/22/18 09:46 Dose: 1 cap Escitalopram Oxalate (Lexapro) 10 mg GT DAILY [facility] Last Admin: 06/24/18 09:50 Dose: 10 mg Glucagon (Glucagen Diagnostic Kit) 0 mg IM STAT PRN; Protocol PRN Reason: Hypoglycemia Protocol Hydrocortisone (Cortizone 1% Cream) 0 gm TOP TID PRN PRN Reason: Rash Hydromorphone HCl (Dilaudid) 1 mg IVP Q3 PRN PRN Reason: Pain, SEVERE (8-10) Last Admin: 06/24/18 12:06 Dose: 1 mg Ferric Sodium Gluconate Complex 125 mg/ Sodium Chloride 110 mls @ 100 mls/hr IVPB Q24H [facility] Stop: 06/29/18 14:31 Last Admin: 06/23/18 15:23 Dose: 100 mls/hr Vancomycin HCl 1,500 mg/ (Sodium Chloride) 500 mls @ 166.6 mls/hr IVPB Q12H [facility] PRN Reason: Protocol Last Admin: 06/24/18 05:11 Dose: 166.6 mls/hr Insulin Human Regular (Novolin R) 0 unit SC Q6 [facility] PRN Reason: Protocol Last Admin: 06/24/18 11:45 Dose: Not Given Ipratropium [place] (Atrovent) 0.5 mg IH RQ6 [facility] Last Admin: 06/24/18 13:55 Dose: Not Given Lactobacillus Acidophilus (Bacid Acidophilus) 1 cap PEG BID [facility] Last Admin: 06/24/18 09:49 Dose: 1 cap Loperamide HCl (Imodium) 1 mg PO Q2H PRN PRN Reason: Diarrhea Last Admin: 06/24/18 09:49 Dose: 1 mg Lorazepam (Ativan) 1 mg IVP BID [facility] Last Admin: 06/24/18 09:46 Dose: 1 mg Metoprolol Tartrate (Lopressor) 12.5 mg PEG BID [facility] Last Admin: 06/24/18 09:49 Dose: 12.5 mg Nicotine (Nicoderm Cq) 1 patch TD DAILY [facility] Last Admin: 06/24/18 09:49 Dose: 1 patch Ondansetron HCl (Zofran Inj) 4 mg IVP Q6H PRN PRN Reason: Nausea/Vomiting Last Admin: 06/24/18 11:35 Dose: 4 mg Pantoprazole Sodium (Protonix Susp) 40 mg PO Q24H [facility] Last Admin: 06/24/18 09:49 Dose: 40 mg Saliva Substitute (Mouth Kote 236 Ml) 0 ml MM Q6 PRN PRN Reason: Dry mouth Vitamin A (Vitamin A & D Oint Ud Foilpak) 1 ea TOP Q8 PRN PRN Reason: dry lips Last Admin: 05/20/18 11:10 Dose: 1 ea Vitamin E (Vitamin E 400 Units Cap) 400 intlu GT DAILY [facility] Last Admin: 06/24/18 09:50 Dose: 400 intlu - Labs Labs: 06/24/18 07:35 06/24/18 07:35 PT 14.3 SECONDS (9.7-12.2) H 06/10/18 07:05 INR 1.3 06/10/18 07:05 APTT 33 SECONDS (21-34) 05/25/18 06:16 - Constitutional Appears: No Acute Distress - Head Exam Head Exam: NORMOCEPHALIC - Eye Exam Eye Exam: Normal appearance - ENT Exam ENT Exam: Mucous Membranes Moist - Respiratory Exam Respiratory Exam: NORMAL BREATHING PATTERN - Cardiovascular Exam Cardiovascular Exam: +S1, +S2 - GI/Abdominal Exam GI & Abdominal Exam: Soft - Neurological Exam Neurological Exam: Alert, Awake, Oriented x3 - Psychiatric Exam Psychiatric exam: Normal Mood - Skin Skin Exam: Dry, Intact, Warm Assessment and Plan - Assessment and Plan (Free Text) Assessment: 38F s/p Binta-en-Y gastric bypass (2013) w/bowel ischemic 2/2 internal hernia POD#42 s/p ex lap, reduction of internal hernia, DANNI, drainage of abdominal collections, temporary abdominal closure & EGD POD#39 s/p re-exploration, resection of ileum & Binta limb including previous gastrojejunostomy, reversal of bypass, primary anastomosis of ileum-ileum, ileum -ileum, and ileum-jejunum. Gastrostomy tube in bypassed stomach, EGD Wound vac in place over midline incision Plan: Monitor wound vac output Wound vac changes Q72H Monitor NGT output Spoke to patient about importance of not drinking/eating as she is in discontinuity and this can lead to life threatening situations NGT to low-intermittent wall suction Cont TPN OOBTC Ambulate with assistance Encourage IS use Awaiting Dr. Mccray's response to coordinate take back surgery D/w Dr. Cricket Jimenez PGY3 <Gómez Harley B - Last Filed: 06/26/18 14:11> Objective - Vital Signs/Intake and Output Vital Signs (last 24 hours): Temp Pulse Resp BP Pulse Ox 97.9 F 80 18 114/79 97 06/26/18 07:00 06/26/18 07:00 06/26/18 07:00 06/26/18 07:00 06/26/18 07:00 Intake and Output: 06/26/18 06/26/18 06:59 18:59 Intake Total 1100 800 Output Total 170 Balance 930 800 - Medications Medications: Current Medications Acetaminophen (Tylenol 650mg/20.3ml Solution Ud) 975 mg GT Q8H PRN PRN Reason: Pain, Mild (1-3) Last Admin: 06/25/18 18:42 Dose: 975 mg Calcium Acetate (Phoslo) 667 mg GT TIDCC [facility] Last Admin: 06/26/18 11:02 Dose: 667 mg Cholestyramine Resin (Questran) 4 gm PO BID [facility] Last Admin: 06/26/18 10:10 Dose: 4 gm Dextrose (Dextrose 50% Inj) 0 ml IV STAT PRN; Protocol PRN Reason: Hypoglycemia Protocol Dextrose (Glutose 15) 0 gm PO ONCE PRN; Protocol PRN Reason: Hypoglycemia Protocol Enoxaparin Sodium (Lovenox) 40 mg SC DAILY [facility] Last Admin: 06/26/18 09:53 Dose: 40 mg Ergocalciferol (Drisdol 50,000 Intl Units Cap) 1 cap PO Q7D [facility] Stop: 07/20/18 10:01 Escitalopram Oxalate (Lexapro) 10 mg GT DAILY [facility] Last Admin: 06/26/18 10:57 Dose: 10 mg Gentamicin Sulfate (Gentamicin 0.1%) 0 gm TOP TID [facility] Last Admin: 06/26/18 13:43 Dose: 1 oin Glucagon (Glucagen Diagnostic Kit) 0 mg IM STAT PRN; Protocol PRN Reason: Hypoglycemia Protocol Hydrocortisone (Cortizone 1% Cream) 0 gm TOP TID PRN PRN Reason: Rash Hydromorphone HCl (Dilaudid) 1 mg IVP Q3 PRN PRN Reason: Pain, SEVERE (8-10) Last Admin: 06/26/18 12:48 Dose: 1 mg Ferric Sodium Gluconate Complex 125 mg/ Sodium Chloride 110 mls @ 100 mls/hr IVPB Q24H [facility] Stop: 06/29/18 14:31 Last Admin: 06/25/18 14:56 Dose: 100 mls/hr Vancomycin HCl 1,500 mg/ (Sodium Chloride) 500 mls @ 166.6 mls/hr IVPB Q12H [facility] PRN Reason: Protocol Last Admin: 06/26/18 04:45 Dose: 166.6 mls/hr Meropenem 1 gm/ Sodium (Chloride) 100 mls @ 100 mls/hr IVPB Q8H [facility] PRN Reason: Protocol Last Admin: 06/26/18 08:11 Dose: 100 mls/hr Insulin Human Regular (Novolin R) 0 unit SC Q6 [facility] PRN Reason: Protocol Last Admin: 06/26/18 11:33 Dose: Not Given Ipratropium [place] (Atrovent) 0.5 mg IH RQ6 [facility] Last Admin: 06/26/18 13:55 Dose: 0.5 mg Lactobacillus Acidophilus (Bacid Acidophilus) 1 cap PEG BID [facility] Last Admin: 06/26/18 10:57 Dose: 1 cap Loperamide HCl (Imodium) 1 mg PO Q2H PRN PRN Reason: Diarrhea Last Admin: 06/26/18 09:56 Dose: 1 mg Lorazepam (Ativan) 1 mg IVP BID [facility] Last Admin: 06/26/18 10:57 Dose: 1 mg Metoprolol Tartrate (Lopressor) 12.5 mg PEG BID [facility] Last Admin: 06/26/18 09:54 Dose: 12.5 mg Nicotine (Nicoderm Cq) 1 patch TD DAILY [facility] Last Admin: 06/26/18 09:53 Dose: 1 patch Ondansetron HCl (Zofran Inj) 4 mg IVP Q6H PRN PRN Reason: Nausea/Vomiting Last Admin: 06/26/18 10:01 Dose: 4 mg Pantoprazole Sodium (Protonix Susp) 40 mg PO Q24H [facility] Last Admin: 06/26/18 09:53 Dose: 40 mg Saliva Substitute (Mouth Kote 236 Ml) 0 ml MM Q6 PRN PRN Reason: Dry mouth Vitamin A (Vitamin A & D Oint Ud Foilpak) 1 ea TOP Q8 PRN PRN Reason: dry lips Vitamin E (Vitamin E 400 Units Cap) 400 intlu GT DAILY [facility] Last Admin: 06/26/18 09:54 Dose: 400 intlu - Labs Labs: 06/26/18 04:55 06/26/18 04:55 PT 14.3 SECONDS (9.7-12.2) H 06/10/18 07:05 INR 1.3 06/10/18 07:05 APTT 33 SECONDS (21-34) 05/25/18 06:16 Attending/Attestation - Attestation I have personally seen and examined this patient.: Yes I have fully participated in the care of the patient.: Yes I have reviewed all pertinent clinical information, including history, physical exam and plan: Yes Notes (Text): Pt was seen and examined at bedside Agree with above note and assessment Pt is stable clinically Local wound care c.w current mx Plan d.w pt in detail
[2018-06-24] MEDS ORDERED: HYDROmorphone 1 mg/ml ISec IVP PRN (15:13)
[2018-06-24] MEDS ORDERED: Vitamins A & D Oint UD Foilpak TOP PRN (15:58)
[2018-06-24] MEDS ORDERED: Glucagon Recombinant 1 mg Inj IM PRN (15:58)
[2018-06-24] MEDS ORDERED: Pantoprazole 40 mg Susp UD PO SCH (16:00)
[2018-06-24] MEDS ORDERED: Ergocalciferol 50,000 Intl Units Cap PO SCH (16:00)
[2018-06-24] MEDS: Ferric Sodium Gluconat Complex 125 MG in Sodium Chloride 0.9% 100 ML IVPB SCH (16:06)
--- NOTE | 2018-06-24 23:02 | CP.PCM.PN ---
Subjective - Date & Time of Evaluation Date of Evaluation: 06/24/18 Time of Evaluation: 15:00 - Subjective Subjective: dictated Objective - Vital Signs/Intake and Output Vital Signs (last 24 hours): Temp Pulse Resp BP Pulse Ox 98.0 F 84 20 106/71 97 06/24/18 15:00 06/24/18 15:00 06/24/18 15:00 06/24/18 15:00 06/24/18 15:00 Intake and Output: 06/24/18 06/25/18 18:59 06:59 Intake Total 600 Output Total 300 Balance 300 - Medications Medications: Current Medications Acetaminophen (Tylenol 650mg/20.3ml Solution Ud) 975 mg GT Q8 PRN PRN Reason: Pain, Mild (1-3) Last Admin: 06/24/18 11:34 Dose: 975 mg Cholestyramine Resin (Questran) 4 gm PO BID [facility] Last Admin: 06/24/18 17:41 Dose: 4 gm Dextrose (Dextrose 50% Inj) 0 ml IV STAT PRN; Protocol PRN Reason: Hypoglycemia Protocol Dextrose (Glutose 15) 0 gm PO ONCE PRN; Protocol PRN Reason: Hypoglycemia Protocol Enoxaparin Sodium (Lovenox) 40 mg SC DAILY [facility] Ergocalciferol (Drisdol 50,000 Intl Units Cap) 1 cap PO Q7D [facility] Stop: 07/20/18 10:01 Escitalopram Oxalate (Lexapro) 10 mg GT DAILY [facility] Last Admin: 06/24/18 09:50 Dose: 10 mg Glucagon (Glucagen Diagnostic Kit) 0 mg IM STAT PRN; Protocol PRN Reason: Hypoglycemia Protocol Hydrocortisone (Cortizone 1% Cream) 0 gm TOP TID PRN PRN Reason: Rash Hydromorphone HCl (Dilaudid) 1 mg IVP Q3 PRN PRN Reason: Pain, SEVERE (8-10) Last Admin: 06/24/18 22:07 Dose: 1 mg Ferric Sodium Gluconate Complex 125 mg/ Sodium Chloride 110 mls @ 100 mls/hr IVPB Q24H [facility] Stop: 06/29/18 14:31 Last Admin: 06/24/18 16:06 Dose: 100 mls/hr Vancomycin HCl 1,500 mg/ (Sodium Chloride) 500 mls @ 166.6 mls/hr IVPB Q12H [facility] PRN Reason: Protocol Last Admin: 06/24/18 18:34 Dose: 166.6 mls/hr Insulin Human Regular (Novolin R) 0 unit SC Q6 [facility] PRN Reason: Protocol Last Admin: 06/24/18 17:27 Dose: Not Given Ipratropium [place] (Atrovent) 0.5 mg IH RQ6 [facility] Last Admin: 06/24/18 19:10 Dose: 0.5 mg Lactobacillus Acidophilus (Bacid Acidophilus) 1 cap PEG BID [facility] Last Admin: 06/24/18 18:54 Dose: 1 cap Loperamide HCl (Imodium) 1 mg PO Q2H PRN PRN Reason: Diarrhea Last Admin: 06/24/18 09:49 Dose: 1 mg Lorazepam (Ativan) 1 mg IVP BID [facility] Last Admin: 06/24/18 17:42 Dose: 1 mg Metoprolol Tartrate (Lopressor) 12.5 mg PEG BID [facility] Last Admin: 06/24/18 17:42 Dose: 12.5 mg Nicotine (Nicoderm Cq) 1 patch TD DAILY [facility] Last Admin: 06/24/18 09:49 Dose: 1 patch Ondansetron HCl (Zofran Inj) 4 mg IVP Q6H PRN PRN Reason: Nausea/Vomiting Pantoprazole Sodium (Protonix Susp) 40 mg PO Q24H [facility] Saliva Substitute (Mouth Kote 236 Ml) 0 ml MM Q6 PRN PRN Reason: Dry mouth Vitamin A (Vitamin A & D Oint Ud Foilpak) 1 ea TOP Q8 PRN PRN Reason: dry lips Vitamin E (Vitamin E 400 Units Cap) 400 intlu GT DAILY [facility] Last Admin: 06/24/18 09:50 Dose: 400 intlu - Labs Labs: 06/24/18 07:35 06/24/18 07:35 PT 14.3 SECONDS (9.7-12.2) H 06/10/18 07:05 INR 1.3 06/10/18 07:05 APTT 33 SECONDS (21-34) 05/25/18 06:16
[2018-06-25] MEDS: (Novolin R) Insulin Human Regular 100 units/ml vial SC SCH ×4 (00:59→18:20)
[2018-06-25] MEDS: HYDROmorphone 1 mg/ml ISec IVP PRN ×8 (01:16→23:43)
[2018-06-25] MEDS: Meropenem 1 GM in Sodium Chloride 0.9% 100 ML IVPB SCH ×4 (01:20→22:38)
--- NOTE | 2018-06-25 01:28 | CP.PCM.PN ---
Addendum entered and electronically signed by Cj Tucker DO 06/25/18 06:38 : Correction - PGY-1 Medicine Progress Note for Dr. Turk Original Note: <Cj Tucker - Last Filed: 06/25/18 01:25> Subjective - Date & Time of Evaluation Date of Evaluation: 06/25/18 Time of Evaluation: 01:25 - Subjective Subjective: PGY-1 Medicine Progress Note for Dr. Roche Patient was seen and examined today at bedside. Patient is in no acute distress. Patient has no complaints, denies any pain except for over her incision site, which has improved. Patient denies any shortness of breath, chest pain, headache, dizziness, palpitations. Objective - Vital Signs/Intake and Output Vital Signs (last 24 hours): Temp Pulse Resp BP Pulse Ox 98.0 F 84 20 106/71 97 06/24/18 15:00 06/24/18 15:00 06/24/18 15:00 06/24/18 15:00 06/24/18 15:00 Intake and Output: 06/24/18 06/25/18 18:59 06:59 Intake Total 600 900 Output Total 300 150 Balance 300 750 - Medications Medications: Current Medications Acetaminophen (Tylenol 650mg/20.3ml Solution Ud) 975 mg GT Q8 PRN PRN Reason: Pain, Mild (1-3) Last Admin: 06/24/18 11:34 Dose: 975 mg Cholestyramine Resin (Questran) 4 gm PO BID [facility] Last Admin: 06/24/18 17:41 Dose: 4 gm Dextrose (Dextrose 50% Inj) 0 ml IV STAT PRN; Protocol PRN Reason: Hypoglycemia Protocol Dextrose (Glutose 15) 0 gm PO ONCE PRN; Protocol PRN Reason: Hypoglycemia Protocol Enoxaparin Sodium (Lovenox) 40 mg SC DAILY [facility] Ergocalciferol (Drisdol 50,000 Intl Units Cap) 1 cap PO Q7D [facility] Stop: 07/20/18 10:01 Escitalopram Oxalate (Lexapro) 10 mg GT DAILY [facility] Last Admin: 06/24/18 09:50 Dose: 10 mg Glucagon (Glucagen Diagnostic Kit) 0 mg IM STAT PRN; Protocol PRN Reason: Hypoglycemia Protocol Hydrocortisone (Cortizone 1% Cream) 0 gm TOP TID PRN PRN Reason: Rash Hydromorphone HCl (Dilaudid) 1 mg IVP Q3 PRN PRN Reason: Pain, SEVERE (8-10) Last Admin: 06/25/18 01:16 Dose: 1 mg Ferric Sodium Gluconate Complex 125 mg/ Sodium Chloride 110 mls @ 100 mls/hr IVPB Q24H [facility] Stop: 06/29/18 14:31 Last Admin: 06/24/18 16:06 Dose: 100 mls/hr Vancomycin HCl 1,500 mg/ (Sodium Chloride) 500 mls @ 166.6 mls/hr IVPB Q12H [facility] PRN Reason: Protocol Last Admin: 06/24/18 18:34 Dose: 166.6 mls/hr Meropenem 1 gm/ Sodium (Chloride) 100 mls @ 100 mls/hr IVPB Q8H [facility] PRN Reason: Protocol Last Admin: 06/25/18 01:20 Dose: 100 mls/hr Insulin Human Regular (Novolin R) 0 unit SC Q6 [facility] PRN Reason: Protocol Last Admin: 06/24/18 17:27 Dose: Not Given Ipratropium [place] (Atrovent) 0.5 mg IH RQ6 [facility] Last Admin: 06/24/18 19:10 Dose: 0.5 mg Lactobacillus Acidophilus (Bacid Acidophilus) 1 cap PEG BID [facility] Last Admin: 06/24/18 18:54 Dose: 1 cap Loperamide HCl (Imodium) 1 mg PO Q2H PRN PRN Reason: Diarrhea Last Admin: 06/24/18 09:49 Dose: 1 mg Lorazepam (Ativan) 1 mg IVP BID [facility] Last Admin: 06/24/18 17:42 Dose: 1 mg Metoprolol Tartrate (Lopressor) 12.5 mg PEG BID [facility] Last Admin: 06/24/18 17:42 Dose: 12.5 mg Nicotine (Nicoderm Cq) 1 patch TD DAILY [facility] Last Admin: 06/24/18 09:49 Dose: 1 patch Ondansetron HCl (Zofran Inj) 4 mg IVP Q6H PRN PRN Reason: Nausea/Vomiting Pantoprazole Sodium (Protonix Susp) 40 mg PO Q24H [facility] Saliva Substitute (Mouth Kote 236 Ml) 0 ml MM Q6 PRN PRN Reason: Dry mouth Vitamin A (Vitamin A & D Oint Ud Foilpak) 1 ea TOP Q8 PRN PRN Reason: dry lips Vitamin E (Vitamin E 400 Units Cap) 400 intlu GT DAILY [facility] Last Admin: 06/24/18 09:50 Dose: 400 intlu - Labs Labs: 06/24/18 07:35 06/24/18 07:35 PT 14.3 SECONDS (9.7-12.2) H 06/10/18 07:05 INR 1.3 06/10/18 07:05 APTT 33 SECONDS (21-34) 05/25/18 06:16 - Head Exam Head Exam: ATRAUMATIC, NORMAL INSPECTION - Eye Exam Eye Exam: EOMI, Normal appearance - ENT Exam ENT Exam: Mucous Membranes Moist, Normal Exam - Respiratory Exam Respiratory Exam: Clear to Ausculation Bilateral, NORMAL BREATHING PATTERN - Cardiovascular Exam Cardiovascular Exam: REGULAR RHYTHM, +S1, +S2 - GI/Abdominal Exam GI & Abdominal Exam: Soft, Tenderness Additional comments: +tenderness over incision site. wound vac in place. - Extremities Exam Extremities Exam: Normal Capillary Refill, Normal Inspection. absent: Pedal Edema - Back Exam Back Exam: NORMAL INSPECTION - Neurological Exam Neurological Exam: Alert, Awake, CN II-XII Intact, Oriented x3 - Psychiatric Exam Psychiatric exam: Normal Affect, Normal Mood - Skin Skin Exam: Dry, Intact, Normal Color, Warm Assessment and Plan - Assessment and Plan (Free Text) Assessment: Assessment: 38F with a PMH of HTN, HLD, DM2, asthma s/p bowel resection (05/14, 05/16) 2/2 internal hernia s/p Yenni-en-Y gastric bypass in 2013 admitted for medical optimization prior to reversal of bypass. Of note, NG tube was draining into canister. > 700cc of clear yellow liquid collected on 06/22. Surgery made aware. Reinforced NPO status. Patient with 100cc collected in canister as of this morning. Per surgery note: Spoke to patient about importance of not drinking/eating as she is in discontinuity and this can lead to life threatening situations. Awaiting Dr. Mccray's response to coordinate take back surgery. Plan: Ischemic bowel disease secondary to internal hernias producing bowel obstruction Current Management: - Current drains include: NGT (have on intermittent suction per surgery), gastrostomy tube (replaced 06/10) - Repeat wound culture (06/13/18): Coag neg Staph, enterococcus raffinosus, Abx - sensative to vancomyocin - Continue vanco 1g Q12 - 06/22 Vanc troph 11.1 ideal range 15- 20, adjusted vanc to 1.5g q12 (first dose 06/18 13:00) - Repeat vanc trough 06/20 @ 12:30AM = 10.2 - Repeat vanc trough 06/22 @ 4:30AM (30 mins prior to 8th dose) = 11.1 - Repeat vanc trough 06/24: ordered - Dr. Harley (surgery) on the case Wound vac to continuous suction - replaced on 06/22 by surgery Following Bariatric surgeon (Dr. Mccray) recs-- Current recs no lutheran of continuity operation until 5 weeks after 05/16 surgery Current drainage from mid-line incision possibly d/t leak of tube feed contents form around gastrostomy tube vs fistula -- wound vac in place Repeat wound culture (06/13/18): Coag neg Staph, enterococcus raffinosus, Abx - cipro to vancomyocin for coverage - Heme consulted: Dr. Cash for Fe status - appreciated recommendations Iron 17, TIBC 238, % sat 7, ferritin 14.5, pending retic count Cultures: New (06/22/18): Wound Culture prelim gram stain of abdominal incision: gram negative rods. Final results pending. New (06/22/18): Wound Culture final gram stain of Peg site: Pseudomonas Peritoneal Fluid (05/14/18): Pseudomonas Aeruginosa sensitive to Meropenem Wound Culture (05/23/18): Yudith Albicans Blood Culture (05/15/18, 05/22/18): no growth Urine Culture (05/22/18): no growth Incision Site (05/31/18): Enterococcus faecalis, Acinetobacter baumannii Stool Cultures (06/03/18): No salmonella, shigella, or campylobacteria isolates Repeat wound culture (06/13/18): Coag neg Staph, enterococcus raffinosus Antibiotics Continue Vancomycin 1gm IV Q12Hr (started 06/16 @ 12pm), goal vanc trough 15-20 Discontinued Cipro 400 mg IV q12hrs (started 06/02, last day 06/16/18) Completed Flagyl 500mg IVPB q8hrs (active since 05/15/18-06/19/18) Discontinued Meropenem 1gm IVPB q8hr (active since 05/15/18-05/27/18) Measure vitamin levels and replace as needed Vit D <12.8- vid D 50,000 unites q1wk x8 wks B12 707, wnl Folate 12.6, wnl Vit A 42, wnl Alpha Vit E 5.6, wnl Vit A, B1, B6, E levels reordered on 06/15. - VitB1: inappropriately submitted, 06/01 value acceptable - VitB6: 5.9, wnl - Tabitha, E collected Medication: Continue Tylenol 975 mg liq q8hrs Continue Dilaudad 1mg IV q3hrs PRN Continue Zofran 4mg IV q6hrs PRN Tachycardia, persistent (110s-130s)- possibly etiologies include pain, infection , anxiety -She is being treated for Left G Tube fluid infection. -Continue Ativan PRN -Continue Dilaudid on board to be used PRN. -Continue Metoprolol tartrate 5mg IV q6hrs with holding parameters (SBP <100, HR <60) Diarrhea, acute, improving- suspect secondary to PO intake by pt -C.Diff (05/22, 05/24, 05/28): negative -Stool O&P (05/25/18): negative -Stool leukocytes (05/25/18): negative -per ID continue Flagyl due to leak around wound vac -Imodium 1mg PO Q2H PRN Anxiety -Storekeeper Steward consulted- pt initially refused but then accepted -Psychiatry consulted (Dr. Reyez)- managing Ativan -Continue Ativan 1mg IV BID -Continue Lexapro 10mg GT daily (started 05/31) Insomnia - Discontinue, Benadryl 25 mg IVP HS PRN, clinically not indicated Anemia, acute, stable, pt denies blood in stool -Patient received a total of 2 PRBC (on 05/16) and 4 FFP (on 05/15 and 05/16) -Iron 16, TIBC 205, %sat 4.7, ferritin 75.3 -Monitor CBC Q2D Thrombocytosis, improving (504)- suspect reactive to pain, surgery- Resolved -Monitory CBC Q2D Diabetes Mellitus, Type 2- controlled -From prior note: Admittedly non-compliant, has not taken Januvia for one year -Accuchecks q6hrs -Hypoglycemic protocol -ISS regular -HbA1c 5.8 -History of gastric bypass surgery Hypercholesterolemia- untreated - LDL <30, HDL 23, Chol 59, TG 195 (06/03/18) - LDL 38, HDL 14, Chol 104, TG 226 (05/19/18) - History of gastric bypass surgery - Questran 4gm PO BID History of Hypertension, controlled- since gastric bypass has not taken meds -Metoprolol 5mg IV q6hrs History Obesity- Resolved -s/p gastric bypass surgery in 2013 History of Asthma- Chronic -Atrovent q6hrs Nicotine use disorder- Chronic - From prior note: 1ppd x 20 yrs, 1/2ppd x3 yrs - Continue Nicoderm 1 patch TD QD Electrolyte Imbalance: hypokalemia, hypomagnesemia - resolved - continue to monitor with AM labs, replete as needed Leukocytosis, trending downwards- likely secondary to ischemic bowel secondary to small bowel obstruction and surgeries- Resolved - Cultures: Peritoneal Fluid (05/14/18): Pseudomonas Aeruginosa sensitive to Meropenem Wound Culture (05/23/18): Yudith albicans Blood Culture (05/15/18, 05/22/18): no growth Urine Culture (05/22/18): no growth Wound Cx from incision site 05/31: Enterococcus faecalis, Acinetobacter baumanii, on ciprofloxacin 400mg (started 06/02) - Monitor CBC Q2D Prophylaxis -Hydrocortisone 1% Cream topical TID for Right Upper Inner Arm macular rash- improved -Vitamin A&D topical q8hrs PRN for dry lips -Saliva substitute q6hrs PRN for dry mouth -IVF: not indicated -VTE ppx: Lovenox 40mg SC daily, SCDs; encourage ambulation -GI ppx: Protonix 40mg IV BID, Florastor BID -Code status: full code Dispo: PT consulted- working with patient daily, rec home PT with services. Will stay at [facility] until bypass reversal surgery. Pending Dr. Mccray recs. Assessment/Plan Discussed with Dr. Kaley Tucker, PGY-1 <Doretha Turk V - Last Filed: 06/25/18 09:11> Objective - Vital Signs/Intake and Output Vital Signs (last 24 hours): Temp Pulse Resp BP Pulse Ox 98.3 F 82 18 113/80 98 06/25/18 07:30 06/25/18 07:30 06/25/18 07:30 06/25/18 07:30 06/25/18 07:30 Intake and Output: 06/25/18 06/25/18 06:59 18:59 Intake Total 2000 Output Total 200 Balance 1800 - Medications Medications: Current Medications Acetaminophen (Tylenol 650mg/20.3ml Solution Ud) 975 mg GT Q8 PRN PRN Reason: Pain, Mild (1-3) Last Admin: 06/24/18 11:34 Dose: 975 mg Cholestyramine Resin (Questran) 4 gm PO BID [facility] Last Admin: 06/24/18 17:41 Dose: 4 gm Dextrose (Dextrose 50% Inj) 0 ml IV STAT PRN; Protocol PRN Reason: Hypoglycemia Protocol Dextrose (Glutose 15) 0 gm PO ONCE PRN; Protocol PRN Reason: Hypoglycemia Protocol Enoxaparin Sodium (Lovenox) 40 mg SC DAILY [facility] Ergocalciferol (Drisdol 50,000 Intl Units Cap) 1 cap PO Q7D [facility] Stop: 07/20/18 10:01 Escitalopram Oxalate (Lexapro) 10 mg GT DAILY [facility] Last Admin: 06/24/18 09:50 Dose: 10 mg Glucagon (Glucagen Diagnostic Kit) 0 mg IM STAT PRN; Protocol PRN Reason: Hypoglycemia Protocol Hydrocortisone (Cortizone 1% Cream) 0 gm TOP TID PRN PRN Reason: Rash Hydromorphone HCl (Dilaudid) 1 mg IVP Q3 PRN PRN Reason: Pain, SEVERE (8-10) Last Admin: 06/25/18 08:01 Dose: 1 mg Ferric Sodium Gluconate Complex 125 mg/ Sodium Chloride 110 mls @ 100 mls/hr IVPB Q24H [facility] Stop: 06/29/18 14:31 Last Admin: 06/24/18 16:06 Dose: 100 mls/hr Vancomycin HCl 1,500 mg/ (Sodium Chloride) 500 mls @ 166.6 mls/hr IVPB Q12H [facility] PRN Reason: Protocol Last Admin: 06/25/18 04:52 Dose: 166.6 mls/hr Meropenem 1 gm/ Sodium (Chloride) 100 mls @ 100 mls/hr IVPB Q8H [facility] PRN Reason: Protocol Last Admin: 06/25/18 08:07 Dose: 100 mls/hr Insulin Human Regular (Novolin R) 0 unit SC Q6 [facility] PRN Reason: Protocol Last Admin: 06/25/18 06:48 Dose: Not Given Ipratropium [place] (Atrovent) 0.5 mg IH RQ6 [facility] Last Admin: 06/25/18 07:24 Dose: Not Given Lactobacillus Acidophilus (Bacid Acidophilus) 1 cap PEG BID [facility] Last Admin: 06/24/18 18:54 Dose: 1 cap Loperamide HCl (Imodium) 1 mg PO Q2H PRN PRN Reason: Diarrhea Last Admin: 06/24/18 09:49 Dose: 1 mg Lorazepam (Ativan) 1 mg IVP BID [facility] Last Admin: 06/24/18 17:42 Dose: 1 mg Metoprolol Tartrate (Lopressor) 12.5 mg PEG BID [facility] Last Admin: 06/24/18 17:42 Dose: 12.5 mg Nicotine (Nicoderm Cq) 1 patch TD DAILY [facility] Last Admin: 06/24/18 09:49 Dose: 1 patch Ondansetron HCl (Zofran Inj) 4 mg IVP Q6H PRN PRN Reason: Nausea/Vomiting Last Admin: 06/25/18 08:00 Dose: 4 mg Pantoprazole Sodium (Protonix Susp) 40 mg PO Q24H [facility] Saliva Substitute (Mouth Kote 236 Ml) 0 ml MM Q6 PRN PRN Reason: Dry mouth Vitamin A (Vitamin A & D Oint Ud Foilpak) 1 ea TOP Q8 PRN PRN Reason: dry lips Vitamin E (Vitamin E 400 Units Cap) 400 intlu GT DAILY [facility] Last Admin: 06/24/18 09:50 Dose: 400 intlu - Labs Labs: 06/24/18 07:35 06/24/18 07:35 PT 14.3 SECONDS (9.7-12.2) H 06/10/18 07:05 INR 1.3 06/10/18 07:05 APTT 33 SECONDS (21-34) 05/25/18 06:16 Assessment and Plan (1) Ischemic bowel disease Status: Acute (2) Obesity (BMI 30-39.9) Status: Acute (3) Small bowel obstruction Status: Acute (4) Prophylactic measure Status: Acute Attending/Attestation - Attestation I have personally seen and examined this patient.: Yes I have fully participated in the care of the patient.: Yes I have reviewed all pertinent clinical information, including history, physical exam and plan: Yes Notes (Text): Patient seen, examined, and case discussed with day-time resident. Patient reports she has had one bowel movement overnight. She was reminded again strict NPO status. Patient's wound (abdomen) on wound vac present) and gastrotube site no erythema , no discharge. Patient reminded to not touch her dressing to reduce risk of further infection. Patient has not had menstruation yet this week. I have reminded her to get out of bed since I see her in bed during my rounds this week. Assessment/Plan (1) Ischemic bowel disease Assessment & Plan: * Dr. Harley (surgery) on the case-->help appreciated * Preoperative/intraoperative/postoperative management per surgery * Following Bariatric surgeon (Dr. Mccray) to determine reversal bariatric surgery * Continue wound vac to suction-->replaced 06/22 * Continue tube feeds for nutrition * Continue NGT to intermittent suction * Continue antibiotics, PRN pain medications * Dr. Alvarado (GI) on the case-->help appreciated * Dr. Rivera (ID) on the case-->help appreciated * Brief summary of: * Patient has had 2 bloody bowel movements started 05/14/18. Patient's rectal: blood. She had reported abdominal pain has worsening since night of admission. Patient required emergent surgical intervention on 05/14/18 and transferred to ICU. Per operative note (05/14/18): Diagnostic laparoscopy, Exploratory laparotomy , Reduction of internal hernia, Lysis of adhesions, Drainage of abdominal collections, temporary abdominal closure, EGD * Ischemia of yenni limb, internal hernia. Orange drain stitched to distal common limb * Patient underwent surgery again on 05/16/18.Re-exploration, Small bowel resection of ileum, small bowel resection of Yenni limb with gastrojejunostomy, reversal of bypass, primary anastomosis of ileum-ileum, ileum-ileum, and ileum- jejunum, Gastrostomy tube in bypassed stomach, EGD. Patient extubated 05/16/18. Patient is pending surgery intervention to restore GI motility in 5 weeks pending nutritional status. Measure vitamin levels and replace as needed * Vit D <12.8- vit D 50,000 units q1wk x8 wks * Prealbumin 18.1 * B12 707 * Folate 12.6 * Vitamin A: 42 * Vitamin E: 5.6 (low)-->replete * Vitamin B6: 11.1 (normal) and Vitamin B1: 93 (from 06/01/18) * Drains included: NGT Tube in place, Ojeda in place of gastrostomy tube, left min removed 05/25/18; right min was removed 05/23/18; no ojeda; wound vac replaced on 06/22/18 * IV abx: * Flagyl 500mg IVPB Q8H (active since 05/15/18)- discontinued * Vancomycin 1.5 g IV piggyback every 12 hours (since 06/16/18)-->vancomycin trough: 14.4 * Continue to monitor Vanco trough and monitor renal function * Cultures: * Peritoneal Fluid : Pseudomonas Aeruginosa sensitive to Meropenem (05/15-05/27) * Wound Culture (05/23): Yudith Albican--->Diflucan since 05/22/18 until 05/30/18 * Wound culture #1 Abdomen: June 22: gram negative wolf * Wound culture #2 Peg site june 22: Pseudomonas Aeruginosa-->sensitive to Meropenem (active 06/24/18) * Incision site 05/31: Enterococcus faecalis, Acinetobacter baumannii---> Ciprofloxacin 400mg IVPB Q12H (active since 06/03/18-06/16/18) * Incision site 06/13/18: Coagulase Neg Staph, Enterococcus Raffinosus--> Vancomcycin 1.5g IVPB Q12H (active since 06/18/18; started on 06/16/18) * Blood culture (05/15/18): no growth after 5 days X2 * Blood culture (05/22/18): no growth after 5 days X2 * Urine culture: no growth * PRNS: * Tylenol 975 mg liq q8hrs * Dilaudid 1.5 mg IV q3hrs PRN-->Dilaudid 1mg IV Q3H PRN * Zofran 4mg IV q6hrs PRN * Ativan 1mg IV BID anxiety-->per psych * Diarrhea * Patient is Questran 4gm PO BID Status: Acute (2) Small bowel obstruction Assessment & Plan: * Secondary to hernia * Further details noted in #1 Status: Acute (3) Obesity (BMI 30-39.9) Assessment & Plan: * s/p gastric bypass surgery in 2013 * Operative note (2013): Yenni-en-Y gastric bypass surgery * Given nature of ischemic bowel affecting portioning of the gastric limb, she will need to wait at least 5 weeks to restoring GI motility when she is nutritionally optimized Status: Acute (4) Status post gastric bypass for obesity Assessment & Plan: * status post gastric bypass 2013 * Operative note (2013): Yenni-en-Y gastric bypass surgery * Patient noncomplaint with following up postoperative. Status: Acute (5) History of Asthma Assessment & Plan: * Patient not in acute exacerbation prior to OR * Atrovent Q6H (6) Diabetes Mellitus (Type 2); controlled Assessment & Plan: * From prior note: * Admittedly non-compliant - has not taken Januvia for one year * Accuchecks Q6H * Hypoglycemic protocol * HbA1c - 6.3 (03/10/17) * hgba1c: 5.8 * History of gastric bypass surgery (8) Hx of HTN (hypertension) Assessment & Plan: * Since Gastric Bypass has not taken meds (9) Hx of Hypothyroid Assessment & Plan: * From prior note: * Pt admits non-compliance (10) Hypercholesterolemia Assessment & Plan: * From prior note: * Pt not taking meds * LDL 138, HDL 67, Tchol 220, Trig 112 * History of gastric bypass surgery (11) Anxiety Assessment & Plan: * Psychiatry (Dr. 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 Assessment & Plan: * 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 and from my prior note from last hospitalization (13) Smoker Assessment & Plan: * From my prior note: 1ppd x 20 yrs, 1/2 ppd x 3 yrs * Nicoderm 1 patch TD patchy (14) Tachycardia Assessment & Plan: * Lopressor 12.5mg PO BID (15) Prophylactic measure Assessment & Plan: * Bacid Acidophilus 1 cap PEG BID * Lovenox 40mg subqdaily for DVT ppx * PICC line 06/01/18 * need cathflo given clogging 06/19/18 * protonix 40mg IV Qdaily * Vitamin A&D ointment 1 each top Q8H * NGT Tube * IR exchange of Ojeda to 24 japanese gauge 06/10/18 * Wound vac 06/20/18 replaced * Dressing changed per surgery * Feed orders: * Patient is currently on Osmolite via G Tube which has the following components. * MCT Oil (benefits in situations with malabsorption and is low residue) * 1440 calories; 70 gm protein; 914 ml free water * Should at any time the patient require TPN then we can try the following options: * 83 ml/hr: 2100 tete, 100 gm protein * 63 ml/hr: 1575 tete, 75 gm protein * 20% Intrilipid every other day with either one of the TPN rates mentioned above Status: Acute Disposition: Awaiting coordination from surgery and bariatric surgery for reversal since there is GI dysmotility. Patient is on vancomycin for abdominal wound infection (06/13/18) since 06/16/18 and meropenem since 06/24/18 for wound culture (06/22/18). Patient is currently on IV Ferrlecit to help replace iron stores. We will continue to monitor. We have reiterated to the patient to remain strict nothing by mouth and have echo at this nursing staff as well as to my resident. Patient is fully aware that this could delay her surgery and she has been reminded by myself daily.
[2018-06-25] MEDS: Ipratropium 0.02% Inhal Soln (0.5 mg/2.5 ml) UD IH SCH ×4 (02:35→19:22)
--- NOTE | 2018-06-25 03:05 | PN ---
DATE: 06/24/2018 SUBJECTIVE: The patient remains with the NG tube and with the vacuum to the abdominal wall. She denies any complaints. Has a PICC line which is stable. OBJECTIVE: VITAL SIGNS: T-max is 98, pulse 84, blood pressure 106/71, respirations are 20. HEENT: Head is atraumatic, normocephalic. NECK: Supple. LUNGS: Clear. HEART: S1, S2 regular. ABDOMEN: Soft. Has ostomy tube as well as wound VAC present. EXTREMITIES: Have no edema. Her wound culture came back positive for Pseudomonas this time, and Pseudomonas is meropenem sensitive, so we will put her back on meropenem, and we will follow. She had ischemic bowel and is waiting for a definitive surgery for reconciliation. We will follow. Her white count is 8.6, and chemistry shows her BUN is 3 and creatinine 0.4. Her medications should include meropenem. We will follow. She was on vancomycin as before, was gram-positive. We will leave her on that along with the meropenem. Guero Rivera MD
[2018-06-25] MEDS: Lactobacillus Acidophilus 500 MU Cap PEG SCH ×2 (12:09→18:01)
[2018-06-25] MEDS: Enoxaparin 40 mg Syringe SC SCH (12:09)
[2018-06-25] MEDS: Pantoprazole 40 mg Susp UD PO SCH (12:11)
[2018-06-25] MEDS: Cholestyramine 4 gm/Pkt UD PO SCH ×2 (12:12→18:01)
[2018-06-25] MEDS: Ferric Sodium Gluconat Complex 125 MG in Sodium Chloride 0.9% 100 ML IVPB SCH (14:56)
[2018-06-25] MEDS ORDERED: Acetaminophen 650mg/20.3ml solution UD GT PRN (18:30)
--- NOTE | 2018-06-25 20:08 | CP.PCM.PN ---
Subjective - Date & Time of Evaluation Date of Evaluation: 06/25/18 Time of Evaluation: 14:30 - Subjective Subjective: dictated Objective - Vital Signs/Intake and Output Vital Signs (last 24 hours): Temp Pulse Resp BP Pulse Ox 98.4 F 88 20 104/69 97 06/25/18 16:00 06/25/18 16:00 06/25/18 16:00 06/25/18 16:00 06/25/18 16:00 Intake and Output: 06/25/18 06/26/18 18:59 06:59 Intake Total 650 Output Total 200 Balance 450 - Medications Medications: Current Medications Acetaminophen (Tylenol 650mg/20.3ml Solution Ud) 975 mg GT Q8H PRN PRN Reason: Pain, Mild (1-3) Last Admin: 06/25/18 18:42 Dose: 975 mg Cholestyramine Resin (Questran) 4 gm PO BID [facility] Last Admin: 06/25/18 18:01 Dose: 4 gm Dextrose (Dextrose 50% Inj) 0 ml IV STAT PRN; Protocol PRN Reason: Hypoglycemia Protocol Dextrose (Glutose 15) 0 gm PO ONCE PRN; Protocol PRN Reason: Hypoglycemia Protocol Enoxaparin Sodium (Lovenox) 40 mg SC DAILY [facility] Last Admin: 06/25/18 12:09 Dose: 40 mg Ergocalciferol (Drisdol 50,000 Intl Units Cap) 1 cap PO Q7D [facility] Stop: 07/20/18 10:01 Escitalopram Oxalate (Lexapro) 10 mg GT DAILY [facility] Last Admin: 06/25/18 12:10 Dose: 10 mg Glucagon (Glucagen Diagnostic Kit) 0 mg IM STAT PRN; Protocol PRN Reason: Hypoglycemia Protocol Hydrocortisone (Cortizone 1% Cream) 0 gm TOP TID PRN PRN Reason: Rash Hydromorphone HCl (Dilaudid) 1 mg IVP Q3 PRN PRN Reason: Pain, SEVERE (8-10) Last Admin: 06/25/18 17:30 Dose: 1 mg Ferric Sodium Gluconate Complex 125 mg/ Sodium Chloride 110 mls @ 100 mls/hr IVPB Q24H [facility] Stop: 06/29/18 14:31 Last Admin: 06/25/18 14:56 Dose: 100 mls/hr Vancomycin HCl 1,500 mg/ (Sodium Chloride) 500 mls @ 166.6 mls/hr IVPB Q12H [facility] PRN Reason: Protocol Last Admin: 06/25/18 18:01 Dose: 166.6 mls/hr Meropenem 1 gm/ Sodium (Chloride) 100 mls @ 100 mls/hr IVPB Q8H [facility] PRN Reason: Protocol Last Admin: 06/25/18 16:30 Dose: 100 mls/hr Insulin Human Regular (Novolin R) 0 unit SC Q6 [facility] PRN Reason: Protocol Last Admin: 06/25/18 18:20 Dose: Not Given Ipratropium [place] (Atrovent) 0.5 mg IH RQ6 [facility] Last Admin: 06/25/18 19:22 Dose: 0.5 mg Lactobacillus Acidophilus (Bacid Acidophilus) 1 cap PEG BID [facility] Last Admin: 06/25/18 18:01 Dose: 1 cap Loperamide HCl (Imodium) 1 mg PO Q2H PRN PRN Reason: Diarrhea Last Admin: 06/24/18 09:49 Dose: 1 mg Lorazepam (Ativan) 1 mg IVP BID [facility] Last Admin: 06/25/18 18:02 Dose: 1 mg Metoprolol Tartrate (Lopressor) 12.5 mg PEG BID [facility] Last Admin: 06/25/18 18:01 Dose: 12.5 mg Nicotine (Nicoderm Cq) 1 patch TD DAILY [facility] Last Admin: 06/25/18 12:10 Dose: 1 patch Ondansetron HCl (Zofran Inj) 4 mg IVP Q6H PRN PRN Reason: Nausea/Vomiting Last Admin: 06/25/18 08:00 Dose: 4 mg Pantoprazole Sodium (Protonix Susp) 40 mg PO Q24H [facility] Last Admin: 06/25/18 12:11 Dose: 40 mg Saliva Substitute (Mouth Kote 236 Ml) 0 ml MM Q6 PRN PRN Reason: Dry mouth Vitamin A (Vitamin A & D Oint Ud Foilpak) 1 ea TOP Q8 PRN PRN Reason: dry lips Vitamin E (Vitamin E 400 Units Cap) 400 intlu GT DAILY [facility] Last Admin: 06/25/18 12:09 Dose: 400 intlu - Labs Labs: 06/24/18 07:35 06/24/18 07:35 PT 14.3 SECONDS (9.7-12.2) H 08/31/18 07:05 INR 1.3 06/10/18 07:05 APTT 33 SECONDS (21-34) 05/25/18 06:16
--- NOTE | 2018-06-26 00:06 | PN ---
DATE: 06/25/2018 SUBJECTIVE: The patient is afebrile. She was awake, alert, has an NG tube. I told her that the culture came out positive and will need another antibiotic, which I have already added last night. PHYSICAL EXAMINATION: VITAL SIGNS: T-max is 98.4, pulse 88, blood pressure 104/69, respirations 20. HEENT: Head is atraumatic and normocephalic. NECK: Supple. LUNGS: Clear. HEART: S1 and S2 are regular. ABDOMEN: Soft. Nontender. Has a wound VAC present and has a J tube present. EXTREMITIES: Has no edema. LABORATORY DATA: Labs are noted. ASSESSMENT AND PLAN: She does have pseudomonas on her wound, now both the wounds seem to have the same thing and I have added meropenem and also to continue with vancomycin at this time as she did have Enterococcus fecalis. Since she has Enterococcus fecalis, and she is connected to the wound VAC is this a leak from the bowel before, but right now it is Pseudomonas, so we will hold the antibiotics. Continue wound VAC and follow with the surgeon. We need to see what their plan is. The patient came in with ischemic bowel secondary to internal hernias which produced bowel obstruction and she will need some reconstruction surgery for her bowel. She also has anxiety, tachycardia, high cholesterol, hypertension and her white count was high before, it was repeated it yesterday it was 8.6 and we will follow. Random vancomycin trough is due for tomorrow. Guero Rivera MD
[2018-06-26] MEDS: Ipratropium 0.02% Inhal Soln (0.5 mg/2.5 ml) UD IH SCH ×4 (02:00→20:17)
[2018-06-26] MEDS: HYDROmorphone 1 mg/ml ISec IVP PRN ×4 (03:24→12:48)
[2018-06-26 04:58] LABS: BASO # 0.1 K/uL (0.0-0.2); BASO % 1.1 % (0.0-2.0); EOS # 0.4 K/uL (0.0-0.7); EOS % 6.1 % (0.0-4.0); HEMOGLOBIN 8.7 g/dL (11.0-16.0); LYMPH % 29.2 % (20.0-40.0); MEAN CELL VOLUME 86.8 fL (81.0-99.0); MEAN CORPUSCULAR HEMOGLOBIN 27.8 pg (27.0-31.0); MEAN CORPUSCULAR HGB CONC 32.1 g/dL (33.0-37.0); MEAN PLATELET VOLUME 7.2 fL (7.2-11.7); MONO # 0.5 K/uL (0.0-0.8); MONO % 7.3 % (0.0-10.0); NEUT # 3.9 K/uL (1.8-7.0); NEUT % 56.3 % (50.0-75.0); NRBC % 0.2 % (0.0-2.0); RBC 3.12 Mil/uL (3.80-5.20); RED CELL DISTRIBUTION WIDTH 18.2 % (11.5-14.5); WHITE BLOOD COUNT 6.9 K/uL (4.8-10.8)
[2018-06-26 05:59] LABS: ALB/GLOB RATIO 0.9 (1.0-2.1); ALBUMIN 2.5 g/dL (3.5-5.0); ALT/SGPT 23 U/L (9-52); AST/SGOT 18 U/L (14-36); BLOOD UREA NITROGEN 4 mg/dL (7-17); CALCIUM 7.9 mg/dl (8.6-10.4); GFR NON-AFRICAN AMERICAN > 60
[2018-06-26] MEDS: (Novolin R) Insulin Human Regular 100 units/ml vial SC SCH ×4 (06:00→18:00)
[2018-06-26] MEDS: Meropenem 1 GM in Sodium Chloride 0.9% 100 ML IVPB SCH ×3 (08:11→22:43)
--- NOTE | 2018-06-26 09:11 | CP.PCM.PN ---
Subjective - Date & Time of Evaluation Date of Evaluation: 06/26/18 Time of Evaluation: 08:45 - Subjective Subjective: Medical Attending Note: Patient seen and examined. Patient seen this morning. Patient denies headache, denies chest pain, denies palpitations, denies abdominal pain, reports one bowel movement, denies nausea, denies vomitting. Patient noted to have 10 cc in the canister overnight. I spoke with nurse Peyton who was with the patient yesterday at the end of her shift , 400cc in the canister. Patient reports when her daughter came by yesterday she walked around with her. Objective - Vital Signs/Intake and Output Vital Signs (last 24 hours): Temp Pulse Resp BP Pulse Ox 97.9 F 80 18 114/79 97 06/26/18 07:00 06/26/18 07:00 06/26/18 07:00 06/26/18 07:00 06/26/18 07:00 Intake and Output: 06/26/18 06/26/18 06:59 18:59 Intake Total 1100 Output Total 170 Balance 930 - Medications Medications: Current Medications Acetaminophen (Tylenol 650mg/20.3ml Solution Ud) 975 mg GT Q8H PRN PRN Reason: Pain, Mild (1-3) Last Admin: 06/25/18 18:42 Dose: 975 mg Cholestyramine Resin (Questran) 4 gm PO BID [facility] Last Admin: 06/25/18 18:01 Dose: 4 gm Dextrose (Dextrose 50% Inj) 0 ml IV STAT PRN; Protocol PRN Reason: Hypoglycemia Protocol Dextrose (Glutose 15) 0 gm PO ONCE PRN; Protocol PRN Reason: Hypoglycemia Protocol Enoxaparin Sodium (Lovenox) 40 mg SC DAILY [facility] Last Admin: 06/25/18 12:09 Dose: 40 mg Ergocalciferol (Drisdol 50,000 Intl Units Cap) 1 cap PO Q7D [facility] Stop: 07/20/18 10:01 Escitalopram Oxalate (Lexapro) 10 mg GT DAILY [facility] Last Admin: 06/25/18 12:10 Dose: 10 mg Glucagon (Glucagen Diagnostic Kit) 0 mg IM STAT PRN; Protocol PRN Reason: Hypoglycemia Protocol Hydrocortisone (Cortizone 1% Cream) 0 gm TOP TID PRN PRN Reason: Rash Hydromorphone HCl (Dilaudid) 1 mg IVP Q3 PRN PRN Reason: Pain, SEVERE (8-10) Last Admin: 06/26/18 06:33 Dose: 1 mg Ferric Sodium Gluconate Complex 125 mg/ Sodium Chloride 110 mls @ 100 mls/hr IVPB Q24H [facility] Stop: 06/29/18 14:31 Last Admin: 06/25/18 14:56 Dose: 100 mls/hr Vancomycin HCl 1,500 mg/ (Sodium Chloride) 500 mls @ 166.6 mls/hr IVPB Q12H [facility] PRN Reason: Protocol Last Admin: 06/26/18 04:45 Dose: 166.6 mls/hr Meropenem 1 gm/ Sodium (Chloride) 100 mls @ 100 mls/hr IVPB Q8H [facility] PRN Reason: Protocol Last Admin: 06/26/18 08:11 Dose: 100 mls/hr Insulin Human Regular (Novolin R) 0 unit SC Q6 [facility] PRN Reason: Protocol Last Admin: 06/26/18 06:00 Dose: Not Given Ipratropium [place] (Atrovent) 0.5 mg IH RQ6 [facility] Last Admin: 06/26/18 07:56 Dose: Not Given Lactobacillus Acidophilus (Bacid Acidophilus) 1 cap PEG BID [facility] Last Admin: 06/25/18 18:01 Dose: 1 cap Loperamide HCl (Imodium) 1 mg PO Q2H PRN PRN Reason: Diarrhea Last Admin: 06/24/18 09:49 Dose: 1 mg Lorazepam (Ativan) 1 mg IVP BID [facility] Last Admin: 06/25/18 18:02 Dose: 1 mg Metoprolol Tartrate (Lopressor) 12.5 mg PEG BID [facility] Last Admin: 06/25/18 18:01 Dose: 12.5 mg Nicotine (Nicoderm Cq) 1 patch TD DAILY [facility] Last Admin: 06/25/18 12:10 Dose: 1 patch Ondansetron HCl (Zofran Inj) 4 mg IVP Q6H PRN PRN Reason: Nausea/Vomiting Last Admin: 06/25/18 08:00 Dose: 4 mg Pantoprazole Sodium (Protonix Susp) 40 mg PO Q24H [facility] Last Admin: 06/25/18 12:11 Dose: 40 mg Saliva Substitute (Mouth Kote 236 Ml) 0 ml MM Q6 PRN PRN Reason: Dry mouth Vitamin A (Vitamin A & D Oint Ud Foilpak) 1 ea TOP Q8 PRN PRN Reason: dry lips Vitamin E (Vitamin E 400 Units Cap) 400 intlu GT DAILY [facility] Last Admin: 06/25/18 12:09 Dose: 400 intlu - Labs Labs: 06/26/18 04:55 06/26/18 04:55 PT 14.3 SECONDS (9.7-12.2) H 06/10/18 07:05 INR 1.3 06/10/18 07:05 APTT 33 SECONDS (21-34) 05/25/18 06:16 - Constitutional Appears: Non-toxic, No Acute Distress - Head Exam Head Exam: NORMAL INSPECTION - Eye Exam Eye Exam: EOMI - ENT Exam ENT Exam: Mucous Membranes Moist - Respiratory Exam Respiratory Exam: Clear to Ausculation Bilateral, NORMAL BREATHING PATTERN. absent: Rales, Rhonchi, Wheezes - Cardiovascular Exam Cardiovascular Exam: REGULAR RHYTHM, +S1, +S2 - GI/Abdominal Exam GI & Abdominal Exam: Soft, Normal Bowel Sounds. absent: Distended, Firm, Guarding, Rigid, Rebound Additional comments: 1. midline surgery wound on wound vac (no noted discharge, no erythema) 2. Gastrostomy tube with dressing over the tube, mild discharge with one stitch - Extremities Exam Extremities Exam: absent: Pedal Edema, Tenderness - Neurological Exam Neurological Exam: Alert, Awake, Oriented x3 - Psychiatric Exam Psychiatric exam: Normal Affect, Normal Mood - Skin Skin Exam: Dry, Normal Color, Warm Assessment and Plan (1) Ischemic bowel disease Status: Acute (2) Obesity (BMI 30-39.9) Status: Acute (3) Small bowel obstruction Status: Acute (4) Prophylactic measure Status: Acute Attending/Attestation - Attestation I have personally seen and examined this patient.: Yes I have fully participated in the care of the patient.: Yes I have reviewed all pertinent clinical information, including history, physical exam and plan: Yes Notes (Text): Patient seen, examined, and case discussed with day-time resident. Patient reports she has had one bowel movement overnight. She was reminded again strict NPO status. There was 10cc overnight from the NGT canister. I spoke with Nurse who has confirmed that the canister is old. Patient's wound (abdomen) on wound vac present) and gastrotube site mild discharge. Patient reminded to not touch her dressing to reduce risk of further infection. Patient has not had menstruation yet this week. Assessment/Plan (1) Ischemic bowel disease Assessment & Plan: * Dr. Harley (surgery) on the case-->help appreciated * Preoperative/intraoperative/postoperative management per surgery * Following Bariatric surgeon (Dr. Mccray) to determine reversal bariatric surgery * Continue wound vac to suction-->replaced 06/22 * Continue tube feeds for nutrition * Continue NGT to intermittent suction * Continue antibiotics, PRN pain medications * Dr. Alvarado (GI) on the case-->help appreciated * Dr. Rivera (ID) on the case-->help appreciated * Brief summary of: * Patient has had 2 bloody bowel movements started 05/14/18. Patient's rectal: blood. She had reported abdominal pain has worsening since night of admission. Patient required emergent surgical intervention on 05/14/18 and transferred to ICU. Per operative note (05/14/18): Diagnostic laparoscopy, Exploratory laparotomy , Reduction of internal hernia, Lysis of adhesions, Drainage of abdominal collections, temporary abdominal closure, EGD * Ischemia of yenni limb, internal hernia. Naveed drain stitched to distal common limb * Patient underwent surgery again on 05/16/18.Re-exploration, Small bowel resection of ileum, small bowel resection of Yenni limb with gastrojejunostomy, reversal of bypass, primary anastomosis of ileum-ileum, ileum-ileum, and ileum- jejunum, Gastrostomy tube in bypassed stomach, EGD. Patient extubated 05/16/18. Patient is pending surgery intervention to restore GI motility in 5 weeks pending nutritional status. Measure vitamin levels and replace as needed * Vit D <12.8- vit D 50,000 units q1wk x8 wks * Prealbumin 18.1 * B12 707 * Folate 12.6 * Vitamin A: 42 * Vitamin E: 5.6 (low)-->replete * Vitamin B6: 11.1 (normal) and Vitamin B1: 93 (from 06/01/18) * Drains included: NGT Tube in place, Ojeda in place of gastrostomy tube, left min removed 05/25/18; right min was removed 05/23/18; no ojeda; wound vac replaced on 06/22/18 * IV abx: * Flagyl 500mg IVPB Q8H (active since 05/15/18)- discontinued * Vancomycin 1.5 g IV piggyback every 12 hours (since 06/16/18)-->vancomycin trough: 14.4 * Continue to monitor Vanco trough and monitor renal function * Cultures: * Peritoneal Fluid : Pseudomonas Aeruginosa sensitive to Meropenem (05/15-05/27) * Wound Culture (05/23): Yudith Albican--->Diflucan since 05/22/18 until 05/30/18 * Wound culture #1 Abdomen: June 22: gram negative wolf * Wound culture #2 Peg site june 22: Pseudomonas Aeruginosa-->sensitive to Meropenem (active 06/24/18) * Incision site 05/31: Enterococcus faecalis, Acinetobacter baumannii---> Ciprofloxacin 400mg IVPB Q12H (active since 06/03/18-06/16/18) * Incision site 06/13/18: Coagulase Neg Staph, Enterococcus Raffinosus--> Vancomcycin 1.5g IVPB Q12H (active since 06/18/18; started on 06/16/18) * Blood culture (05/15/18): no growth after 5 days X2 * Blood culture (05/22/18): no growth after 5 days X2 * Urine culture: no growth * PRNS: * Tylenol 975 mg liq q8hrs * Dilaudid 1.5 mg IV q3hrs PRN-->Dilaudid 1mg IV Q3H PRN * Zofran 4mg IV q6hrs PRN * Ativan 1mg IV BID anxiety-->per psych * Diarrhea * Patient is Questran 4gm PO BID Status: Acute (2) Small bowel obstruction Assessment & Plan: * Secondary to hernia * Further details noted in #1 Status: Acute (3) Obesity (BMI 30-39.9) Assessment & Plan: * s/p gastric bypass surgery in 2013 * Operative note (2013): Yenni-en-Y gastric bypass surgery * Given nature of ischemic bowel affecting portioning of the gastric limb, she will need to wait at least 5 weeks to restoring GI motility when she is nutritionally optimized Status: Acute (4) Status post gastric bypass for obesity Assessment & Plan: * status post gastric bypass 2013 * Operative note (2013): Yenni-en-Y gastric bypass surgery * Patient noncomplaint with following up postoperative. Status: Acute (5) History of Asthma Assessment & Plan: * Patient not in acute exacerbation prior to OR * Atrovent Q6H (6) Diabetes Mellitus (Type 2); controlled Assessment & Plan: * From prior note: * Admittedly non-compliant - has not taken Januvia for one year * Accuchecks Q6H * Hypoglycemic protocol * HbA1c - 6.3 (03/10/17) * hgba1c: 5.8 * History of gastric bypass surgery (8) Hx of HTN (hypertension) Assessment & Plan: * Since Gastric Bypass has not taken meds (9) Hx of Hypothyroid Assessment & Plan: * From prior note: * Pt admits non-compliance (10) Hypercholesterolemia Assessment & Plan: * From prior note: * Pt not taking meds * LDL 138, HDL 67, Tchol 220, Trig 112 * History of gastric bypass surgery (11) Anxiety Assessment & Plan: * Psychiatry (Dr. 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 Assessment & Plan: * 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 and from my prior note from last hospitalization (13) Smoker Assessment & Plan: * From my prior note: 1ppd x 20 yrs, 1/2 ppd x 3 yrs * Nicoderm 1 patch TD patchy (14) Tachycardia Assessment & Plan: * Lopressor 12.5mg PO BID (15) Prophylactic measure Assessment & Plan: * Bacid Acidophilus 1 cap PEG BID * Lovenox 40mg subqdaily for DVT ppx * PICC line 06/01/18 * need cathflo given clogging 06/19/18 * protonix 40mg IV Qdaily * Vitamin A&D ointment 1 each top Q8H * NGT Tube * IR exchange of Ojeda to 24 djiboutian gauge 06/10/18 * Wound vac 06/20/18 replaced * Dressing changed per surgery * Feed orders: * Patient is currently on Osmolite via G Tube which has the following components. * MCT Oil (benefits in situations with malabsorption and is low residue) * 1440 calories; 70 gm protein; 914 ml free water * Should at any time the patient require TPN then we can try the following options: * 83 ml/hr: 2100 tete, 100 gm protein * 63 ml/hr: 1575 tete, 75 gm protein * 20% Intrilipid every other day with either one of the TPN rates mentioned above Status: Acute Disposition: Awaiting coordination from surgery and bariatric surgery for reversal since there is GI dysmotility. Patient is on vancomycin for abdominal wound infection (06/13/18) since 06/16/18 and meropenem since 06/24/18 for wound culture (06/22/18). Patient is currently on IV Ferrlecit to help replace iron stores. We will continue to monitor. We have reiterated to the patient to remain strict nothing by mouth and have echo at this nursing staff as well as to my resident. Patient is fully aware that this could delay her surgery and she has been reminded by myself daily.
[2018-06-26] MEDS: Enoxaparin 40 mg Syringe SC SCH (09:53)
[2018-06-26] MEDS: Pantoprazole 40 mg Susp UD PO SCH (09:53)
[2018-06-26] MEDS: Loperamide Hydrochloride 1 mg/5 ml Cup PO PRN (09:56)
[2018-06-26] MEDS: Cholestyramine 4 gm/Pkt UD PO SCH ×2 (10:10→18:00)
[2018-06-26] MEDS: Lactobacillus Acidophilus 500 MU Cap PEG SCH ×2 (10:57→17:54)
[2018-06-26] MEDS: GENTAMICIN 0.1% TOP SCH ×2 (13:43→18:01)
[2018-06-26] MEDS ORDERED: GENTAMICIN 0.1% TOP SCH (14:00)
[2018-06-26] MEDS: Ferric Sodium Gluconat Complex 125 MG in Sodium Chloride 0.9% 100 ML IVPB SCH (15:05)
--- NOTE | 2018-06-26 18:25 | CP.PCM.PN ---
Subjective - Date & Time of Evaluation Date of Evaluation: 06/25/18 Time of Evaluation: 16:00 - Subjective Subjective: No complaints. Objective - Vital Signs/Intake and Output Vital Signs (last 24 hours): Temp Pulse Resp BP Pulse Ox 98.1 F 88 20 112/81 98 06/26/18 15:00 06/26/18 15:00 06/26/18 15:00 06/26/18 15:00 06/26/18 15:00 Intake and Output: 06/26/18 06/26/18 06:59 18:59 Intake Total 1100 950 Output Total 170 415 Balance 930 535 - Medications Medications: Current Medications Acetaminophen (Tylenol 650mg/20.3ml Solution Ud) 975 mg GT Q8H PRN PRN Reason: Pain, Mild (1-3) Last Admin: 06/25/18 18:42 Dose: 975 mg Calcium Acetate (Phoslo) 667 mg GT TIDCC [facility] Last Admin: 06/26/18 17:54 Dose: 667 mg Cholestyramine Resin (Questran) 4 gm PO BID [facility] Last Admin: 06/26/18 18:00 Dose: 4 gm Dextrose (Dextrose 50% Inj) 0 ml IV STAT PRN; Protocol PRN Reason: Hypoglycemia Protocol Dextrose (Glutose 15) 0 gm PO ONCE PRN; Protocol PRN Reason: Hypoglycemia Protocol Enoxaparin Sodium (Lovenox) 40 mg SC DAILY [facility] Last Admin: 06/26/18 09:53 Dose: 40 mg Ergocalciferol (Drisdol 50,000 Intl Units Cap) 1 cap PO Q7D [facility] Stop: 07/20/18 10:01 Escitalopram Oxalate (Lexapro) 10 mg GT DAILY [facility] Last Admin: 06/26/18 10:57 Dose: 10 mg Gentamicin Sulfate (Gentamicin 0.1%) 0 gm TOP TID [facility] Last Admin: 06/26/18 18:01 Dose: 1 oin Glucagon (Glucagen Diagnostic Kit) 0 mg IM STAT PRN; Protocol PRN Reason: Hypoglycemia Protocol Hydrocortisone (Cortizone 1% Cream) 0 gm TOP TID PRN PRN Reason: Rash Hydromorphone HCl (Dilaudid) 1 mg IVP Q3 PRN PRN Reason: Pain, SEVERE (8-10) Last Admin: 06/26/18 16:14 Dose: 1 mg Ferric Sodium Gluconate Complex 125 mg/ Sodium Chloride 110 mls @ 100 mls/hr IVPB Q24H [facility] Stop: 06/29/18 14:31 Last Admin: 06/26/18 15:05 Dose: 100 mls/hr Vancomycin HCl 1,500 mg/ (Sodium Chloride) 500 mls @ 166.6 mls/hr IVPB Q12H [facility] PRN Reason: Protocol Last Admin: 06/26/18 17:55 Dose: 166.6 mls/hr Meropenem 1 gm/ Sodium (Chloride) 100 mls @ 100 mls/hr IVPB Q8H [facility] PRN Reason: Protocol Last Admin: 06/26/18 16:30 Dose: 100 mls/hr Insulin Human Regular (Novolin R) 0 unit SC Q6 [facility] PRN Reason: Protocol Last Admin: 06/26/18 18:00 Dose: Not Given Ipratropium [place] (Atrovent) 0.5 mg IH RQ6 [facility] Last Admin: 06/26/18 13:55 Dose: 0.5 mg Lactobacillus Acidophilus (Bacid Acidophilus) 1 cap PEG BID [facility] Last Admin: 06/26/18 17:54 Dose: 1 cap Loperamide HCl (Imodium) 1 mg PO Q2H PRN PRN Reason: Diarrhea Last Admin: 06/26/18 09:56 Dose: 1 mg Lorazepam (Ativan) 1 mg IVP BID [facility] Last Admin: 06/26/18 17:54 Dose: 1 mg Metoprolol Tartrate (Lopressor) 12.5 mg PEG BID [facility] Last Admin: 06/26/18 17:54 Dose: 12.5 mg Nicotine (Nicoderm Cq) 1 patch TD DAILY [facility] Last Admin: 06/26/18 09:53 Dose: 1 patch Ondansetron HCl (Zofran Inj) 4 mg IVP Q6H PRN PRN Reason: Nausea/Vomiting Last Admin: 06/26/18 10:01 Dose: 4 mg Pantoprazole Sodium (Protonix Susp) 40 mg PO Q24H [facility] Last Admin: 06/26/18 09:53 Dose: 40 mg Saliva Substitute (Mouth Kote 236 Ml) 0 ml MM Q6 PRN PRN Reason: Dry mouth Vitamin A (Vitamin A & D Oint Ud Foilpak) 1 ea TOP Q8 PRN PRN Reason: dry lips Vitamin E (Vitamin E 400 Units Cap) 400 intlu GT DAILY [facility] Last Admin: 06/26/18 09:54 Dose: 400 intlu - Labs Labs: 06/26/18 04:55 06/26/18 04:55 PT 14.3 SECONDS (9.7-12.2) H 06/10/18 07:05 INR 1.3 06/10/18 07:05 APTT 33 SECONDS (21-34) 05/25/18 06:16 - Head Exam Head Exam: ATRAUMATIC - Eye Exam Eye Exam: Normal appearance - ENT Exam ENT Exam: Mucous Membranes Dry - Respiratory Exam Respiratory Exam: NORMAL BREATHING PATTERN - Cardiovascular Exam Cardiovascular Exam: +S1, +S2 - GI/Abdominal Exam GI & Abdominal Exam: Normal Bowel Sounds Assessment and Plan (1) Iron deficiency anemia Assessment & Plan: on IV iron Status: Acute
--- NOTE | 2018-06-26 18:26 | CP.PCM.PN ---
Subjective - Date & Time of Evaluation Date of Evaluation: 06/26/18 Time of Evaluation: 18:00 - Subjective Subjective: No complaints. Objective - Vital Signs/Intake and Output Vital Signs (last 24 hours): Temp Pulse Resp BP Pulse Ox 98.1 F 88 20 112/81 98 06/26/18 15:00 06/26/18 15:00 06/26/18 15:00 06/26/18 15:00 06/26/18 15:00 Intake and Output: 06/26/18 06/26/18 06:59 18:59 Intake Total 1100 950 Output Total 170 415 Balance 930 535 - Medications Medications: Current Medications Acetaminophen (Tylenol 650mg/20.3ml Solution Ud) 975 mg GT Q8H PRN PRN Reason: Pain, Mild (1-3) Last Admin: 06/25/18 18:42 Dose: 975 mg Calcium Acetate (Phoslo) 667 mg GT TIDCC [facility] Last Admin: 06/26/18 17:54 Dose: 667 mg Cholestyramine Resin (Questran) 4 gm PO BID [facility] Last Admin: 06/26/18 18:00 Dose: 4 gm Dextrose (Dextrose 50% Inj) 0 ml IV STAT PRN; Protocol PRN Reason: Hypoglycemia Protocol Dextrose (Glutose 15) 0 gm PO ONCE PRN; Protocol PRN Reason: Hypoglycemia Protocol Enoxaparin Sodium (Lovenox) 40 mg SC DAILY [facility] Last Admin: 06/26/18 09:53 Dose: 40 mg Ergocalciferol (Drisdol 50,000 Intl Units Cap) 1 cap PO Q7D [facility] Stop: 07/20/18 10:01 Escitalopram Oxalate (Lexapro) 10 mg GT DAILY [facility] Last Admin: 06/26/18 10:57 Dose: 10 mg Gentamicin Sulfate (Gentamicin 0.1%) 0 gm TOP TID [facility] Last Admin: 06/26/18 18:01 Dose: 1 oin Glucagon (Glucagen Diagnostic Kit) 0 mg IM STAT PRN; Protocol PRN Reason: Hypoglycemia Protocol Hydrocortisone (Cortizone 1% Cream) 0 gm TOP TID PRN PRN Reason: Rash Hydromorphone HCl (Dilaudid) 1 mg IVP Q3 PRN PRN Reason: Pain, SEVERE (8-10) Last Admin: 06/26/18 16:14 Dose: 1 mg Ferric Sodium Gluconate Complex 125 mg/ Sodium Chloride 110 mls @ 100 mls/hr IVPB Q24H [facility] Stop: 06/29/18 14:31 Last Admin: 06/26/18 15:05 Dose: 100 mls/hr Vancomycin HCl 1,500 mg/ (Sodium Chloride) 500 mls @ 166.6 mls/hr IVPB Q12H [facility] PRN Reason: Protocol Last Admin: 06/26/18 17:55 Dose: 166.6 mls/hr Meropenem 1 gm/ Sodium (Chloride) 100 mls @ 100 mls/hr IVPB Q8H [facility] PRN Reason: Protocol Last Admin: 06/26/18 16:30 Dose: 100 mls/hr Insulin Human Regular (Novolin R) 0 unit SC Q6 [facility] PRN Reason: Protocol Last Admin: 06/26/18 18:00 Dose: Not Given Ipratropium Reader (Atrovent) 0.5 mg IH RQ6 [facility] Last Admin: 06/26/18 13:55 Dose: 0.5 mg Lactobacillus Acidophilus (Bacid Acidophilus) 1 cap PEG BID [facility] Last Admin: 06/26/18 17:54 Dose: 1 cap Loperamide HCl (Imodium) 1 mg PO Q2H PRN PRN Reason: Diarrhea Last Admin: 06/26/18 09:56 Dose: 1 mg Lorazepam (Ativan) 1 mg IVP BID [facility] Last Admin: 06/26/18 17:54 Dose: 1 mg Metoprolol Tartrate (Lopressor) 12.5 mg PEG BID [facility] Last Admin: 06/26/18 17:54 Dose: 12.5 mg Nicotine (Nicoderm Cq) 1 patch TD DAILY [facility] Last Admin: 06/26/18 09:53 Dose: 1 patch Ondansetron HCl (Zofran Inj) 4 mg IVP Q6H PRN PRN Reason: Nausea/Vomiting Last Admin: 06/26/18 10:01 Dose: 4 mg Pantoprazole Sodium (Protonix Susp) 40 mg PO Q24H [facility] Last Admin: 06/26/18 09:53 Dose: 40 mg Saliva Substitute (Mouth Kote 236 Ml) 0 ml MM Q6 PRN PRN Reason: Dry mouth Vitamin A (Vitamin A & D Oint Ud Foilpak) 1 ea TOP Q8 PRN PRN Reason: dry lips Vitamin E (Vitamin E 400 Units Cap) 400 intlu GT DAILY [facility] Last Admin: 06/26/18 09:54 Dose: 400 intlu - Labs Labs: 06/26/18 04:55 06/26/18 04:55 PT 14.3 SECONDS (9.7-12.2) H 06/10/18 07:05 INR 1.3 06/10/18 07:05 APTT 33 SECONDS (21-34) 05/25/18 06:16 - Head Exam Head Exam: ATRAUMATIC - Eye Exam Eye Exam: Normal appearance - ENT Exam ENT Exam: Mucous Membranes Dry - Respiratory Exam Respiratory Exam: NORMAL BREATHING PATTERN - Cardiovascular Exam Cardiovascular Exam: +S1, +S2 - GI/Abdominal Exam GI & Abdominal Exam: Normal Bowel Sounds Assessment and Plan (1) Iron deficiency anemia Assessment & Plan: on IV iron hx of gastric bypass Status: Acute
[2018-06-27] MEDS: (Novolin R) Insulin Human Regular 100 units/ml vial SC SCH ×4 (00:20→19:00)
[2018-06-27] MEDS: Ipratropium 0.02% Inhal Soln (0.5 mg/2.5 ml) UD IH SCH ×2 (02:29→07:37)
--- NOTE | 2018-06-27 07:40 | CP.PCM.PN ---
<Esther Angulo - Last Filed: 06/27/18 20:23> Subjective - Date & Time of Evaluation Date of Evaluation: 06/27/18 Time of Evaluation: 07:40 - Subjective Subjective: PGY1 Progress Note for Franki Madden Patient seen this morning. Patient denies headache, denies chest pain, denies palpitations, denies abdominal pain, reports one bowel movement, denies nausea, denies vomiting. Patient noted to have yellowish liquid in the canister as of this morning. Surgery aware. Patient was able to get out of bed. Patient denies drinking water and/or eating ice chips. Objective - Vital Signs/Intake and Output Vital Signs (last 24 hours): Temp Pulse Resp BP Pulse Ox 98.4 F 88 20 117/81 96 06/26/18 23:00 06/26/18 23:00 06/26/18 23:00 06/26/18 23:00 06/26/18 23:00 Intake and Output: 06/27/18 06/27/18 06:59 18:59 Intake Total 1100 Output Total 460 Balance 640 - Medications Medications: Current Medications Acetaminophen (Tylenol 650mg/20.3ml Solution Ud) 975 mg GT Q8H PRN PRN Reason: Pain, Mild (1-3) Last Admin: 06/25/18 18:42 Dose: 975 mg Calcium Acetate (Phoslo) 667 mg GT TIDCC [facility] Last Admin: 06/26/18 17:54 Dose: 667 mg Cholestyramine Resin (Questran) 4 gm PO BID [facility] Last Admin: 06/26/18 18:00 Dose: 4 gm Dextrose (Dextrose 50% Inj) 0 ml IV STAT PRN; Protocol PRN Reason: Hypoglycemia Protocol Dextrose (Glutose 15) 0 gm PO ONCE PRN; Protocol PRN Reason: Hypoglycemia Protocol Enoxaparin Sodium (Lovenox) 40 mg SC DAILY [facility] Last Admin: 06/26/18 09:53 Dose: 40 mg Ergocalciferol (Drisdol 50,000 Intl Units Cap) 1 cap PO Q7D [facility] Stop: 07/20/18 10:01 Escitalopram Oxalate (Lexapro) 10 mg GT DAILY [facility] Last Admin: 06/26/18 10:57 Dose: 10 mg Gentamicin Sulfate (Gentamicin 0.1%) 0 gm TOP TID [facility] Last Admin: 06/26/18 18:01 Dose: 1 oin Glucagon (Glucagen Diagnostic Kit) 0 mg IM STAT PRN; Protocol PRN Reason: Hypoglycemia Protocol Hydrocortisone (Cortizone 1% Cream) 0 gm TOP TID PRN PRN Reason: Rash Hydromorphone HCl (Dilaudid) 1 mg IVP Q3 PRN PRN Reason: Pain, SEVERE (8-10) Last Admin: 06/27/18 04:45 Dose: 1 mg Ferric Sodium Gluconate Complex 125 mg/ Sodium Chloride 110 mls @ 100 mls/hr IVPB Q24H [facility] Stop: 06/29/18 14:31 Last Admin: 06/26/18 15:05 Dose: 100 mls/hr Vancomycin HCl 1,500 mg/ (Sodium Chloride) 500 mls @ 166.6 mls/hr IVPB Q12H [facility] PRN Reason: Protocol Last Admin: 06/27/18 04:48 Dose: 166.6 mls/hr Meropenem 1 gm/ Sodium (Chloride) 100 mls @ 100 mls/hr IVPB Q8H [facility] PRN Reason: Protocol Last Admin: 06/26/18 22:43 Dose: 100 mls/hr Insulin Human Regular (Novolin R) 0 unit SC Q6 [facility] PRN Reason: Protocol Last Admin: 06/27/18 06:30 Dose: Not Given Ipratropium Geraldine (Atrovent) 0.5 mg IH RQ6 [facility] Last Admin: 06/27/18 07:37 Dose: 0.5 mg Lactobacillus Acidophilus (Bacid Acidophilus) 1 cap PEG BID [facility] Last Admin: 06/26/18 17:54 Dose: 1 cap Loperamide HCl (Imodium) 1 mg PO Q2H PRN PRN Reason: Diarrhea Last Admin: 06/26/18 09:56 Dose: 1 mg Lorazepam (Ativan) 1 mg IVP BID [facility] Last Admin: 06/26/18 17:54 Dose: 1 mg Metoprolol Tartrate (Lopressor) 12.5 mg PEG BID [facility] Last Admin: 06/26/18 17:54 Dose: 12.5 mg Nicotine (Nicoderm Cq) 1 patch TD DAILY [facility] Last Admin: 06/26/18 09:53 Dose: 1 patch Ondansetron HCl (Zofran Inj) 4 mg IVP Q6H PRN PRN Reason: Nausea/Vomiting Last Admin: 06/26/18 10:01 Dose: 4 mg Pantoprazole Sodium (Protonix Susp) 40 mg PO Q24H [facility] Last Admin: 06/26/18 09:53 Dose: 40 mg Saliva Substitute (Mouth Kote 236 Ml) 0 ml MM Q6 PRN PRN Reason: Dry mouth Vitamin A (Vitamin A & D Oint Ud Foilpak) 1 ea TOP Q8 PRN PRN Reason: dry lips Vitamin E (Vitamin E 400 Units Cap) 400 intlu GT DAILY [facility] Last Admin: 06/26/18 09:54 Dose: 400 intlu - Labs Labs: 06/26/18 04:55 06/26/18 04:55 PT 14.3 SECONDS (9.7-12.2) H 06/10/18 07:05 INR 1.3 06/10/18 07:05 APTT 33 SECONDS (21-34) 05/25/18 06:16 - Additional Findings Additional findings: - Constitutional Appears: Non-toxic, No Acute Distress - Head Exam Head Exam: NORMAL INSPECTION - Eye Exam Eye Exam: EOMI - ENT Exam ENT Exam: Mucous Membranes Moist - Respiratory Exam Respiratory Exam: Clear to Ausculation Bilateral, NORMAL BREATHING PATTERN. absent: Rales, Rhonchi, Wheezes - Cardiovascular Exam Cardiovascular Exam: REGULAR RHYTHM, +S1, +S2 - GI/Abdominal Exam GI & Abdominal Exam: Soft, Normal Bowel Sounds. absent: Distended, Firm, Guarding, Rigid, Rebound Additional comments: 1. midline surgery wound on wound vac (no noted discharge, no erythema) 2. Gastrostomy tube with dressing over the tube, mild discharge with one stitch - Extremities Exam Extremities Exam: absent: Pedal Edema, Tenderness - Neurological Exam Neurological Exam: Alert, Awake, Oriented x3 - Psychiatric Exam Psychiatric exam: Normal Affect, Normal Mood - Skin Skin Exam: Dry, Normal Color, Warm Assessment and Plan - Assessment and Plan (Free Text) Assessment: 38F with a PMH of HTN, HLD, DM2, asthma s/p bowel resection (05/14, 05/16) 2/2 internal hernia s/p [id number] gastric bypass in 2013 admitted for medical optimization prior to reversal of bypass. Of note, NG tube was draining into canister. > 700cc of clear yellow liquid collected on 06/22. Surgery made aware. Reinforced NPO status. Patient continued to collect fluid into canister as of this morning. Per surgery note: Spoke to patient about importance of not drinking/eating as she is in discontinuity and this can lead to life threatening situations. Awaiting Dr. Mccray's response to coordinate take back surgery. 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 Harley (surgery) on the case - Wound vac to continuous suction - replaced on 06/22 by surgery - Dr. Cash ([facility] onc) consulted for Fe status - appreciated recommendations * Iron 17, TIBC 238, % sat 7, ferritin 14.5, pending retic count Other cultures: New (06/22/18): abdominal incision: Pseudomonas Aeruginosa sensitive to Meropenem New (06/22/18): Peg site: Pseudomonas Aeruginosa sensitive to Meropenem Peritoneal Fluid (05/14/18): Pseudomonas Aeruginosa sensitive to Meropenem Wound Culture (05/23/18): Yudith Albicans Blood Culture (05/15/18, 05/22/18): no growth Urine Culture (05/22/18): no growth Incision Site (05/31/18): Enterococcus faecalis, Acinetobacter baumannii Stool Cultures (06/03/18): No salmonella, shigella, or campylobacteria isolates Repeat wound culture (06/13/18): Coag neg Staph, enterococcus raffinosus Antibiotics: Continue Vancomycin 1gm IV Q12Hr (started 06/16 @ 12pm), goal vanc trough 15-20 Discontinued Cipro 400 mg IV q12hrs (started 06/02, last day 06/16/18) Completed Flagyl 500mg IVPB q8hrs (active since 05/15/18-06/19/18) Measure vitamin levels and replace as needed: Vit D <12.8- vid D 50,000 unites q1wk x8 wks B12 707, wnl Folate 12.6, wnl Vit A 42, wnl Alpha Vit E 5.6, wnl Vit A, B1, B6, E levels reordered on 06/15. - VitB1: inappropriately submitted, 06/01 value acceptable - VitB6: 5.9, wnl - Tabitha, E collected Medication: Continue Tylenol 975 mg liq q8hrs Continue Dilaudad 1mg IV q3hrs PRN Continue Zofran 4mg IV q6hrs PRN Tachycardia, persistent (110s-130s)- possibly etiologies include pain, infection , anxiety -She is being treated for Left G Tube fluid infection. -Continue Ativan PRN -Continue Dilaudid on board to be used PRN. -Continue Metoprolol tartrate 5mg IV q6hrs with holding parameters (SBP <100, HR <60) Diarrhea, acute, improving- suspect secondary to PO intake by pt -C.Diff (05/22, 05/24, 05/28): negative -Stool O&P (05/25/18): negative -Stool leukocytes (05/25/18): negative -per ID continue Flagyl due to leak around wound vac -Imodium 1mg PO Q2H PRN Anxiety -[employer] consulted- pt initially refused but then accepted -Psychiatry consulted (Dr. Reyez)- managing Ativan -Continue Ativan 1mg IV BID -Continue Lexapro 10mg GT daily (started 05/31) Insomnia - Discontinue, Benadryl 25 mg IVP HS PRN, clinically not indicated Anemia, acute, stable, pt denies blood in stool -Patient received a total of 2 PRBC (on 05/16) and 4 FFP (on 05/15 and 05/16) -Iron 16, TIBC 205, %sat 4.7, ferritin 75.3 -Monitor CBC Q2D Thrombocytosis, improving (504)- suspect reactive to pain, surgery- Resolved -Monitory CBC Q2D Diabetes Mellitus, Type 2- controlled -From prior note: Admittedly non-compliant, has not taken Januvia for one year -Accuchecks q6hrs -Hypoglycemic protocol -ISS regular -HbA1c 5.8 -History of gastric bypass surgery Hypercholesterolemia- untreated - LDL <30, HDL 23, Chol 59, TG 195 (06/03/18) - History of gastric bypass surgery - Questran 4gm PO BID History of Hypertension, controlled - Since gastric bypass has not taken meds - Metoprolol 5mg IV q6hrs History of Asthma- Chronic - Atrovent q6hrs Nicotine use disorder- Chronic - From prior note: 1ppd x 20 yrs, 1/2ppd x3 yrs - Continue Nicoderm 1 patch TD QD Electrolyte Imbalance: hypokalemia, hypomagnesemia - resolved - Continue to monitor with AM labs, replete as needed Prophylaxis -Hydrocortisone 1% Cream topical TID for Right Upper Inner Arm macular rash- improved -Vitamin A&D topical q8hrs PRN for dry lips -Saliva substitute q6hrs PRN for dry mouth -IVF: not indicated -VTE ppx: Lovenox 40mg SC daily, SCDs; encourage ambulation -GI ppx: Protonix 40mg IV BID, Florastor BID -Code status: full code Dispo: PT consulted- working with patient daily, rec home PT with services. Will stay at [facility] until bypass reversal surgery. Pending Dr. Mccray recs. Assessment/Plan Discussed with Franki Madden PGY-1 <Franki Denise - Last Filed: 06/29/18 19:00> Objective - Vital Signs/Intake and Output Vital Signs (last 24 hours): Temp Pulse Resp BP Pulse Ox 98.1 F 106 H 20 115/77 95 06/29/18 15:00 06/29/18 15:00 06/29/18 15:00 06/29/18 15:00 06/29/18 15:00 Intake and Output: 06/29/18 06/30/18 18:59 06:59 Intake Total 150 Output Total 0 Balance 150 - Medications Medications: Current Medications Acetaminophen (Tylenol 650mg/20.3ml Solution Ud) 975 mg GT Q8H PRN PRN Reason: Pain, Mild (1-3) Last Admin: 06/25/18 18:42 Dose: 975 mg Calcium Acetate (Phoslo) 667 mg GT TIDCC [facility] Last Admin: 06/29/18 18:29 Dose: 667 mg Cholestyramine Resin (Questran) 4 gm PO BID [facility] Last Admin: 06/29/18 18:31 Dose: 4 gm Dextrose (Dextrose 50% Inj) 0 ml IV STAT PRN; Protocol PRN Reason: Hypoglycemia Protocol Dextrose (Glutose 15) 0 gm PO ONCE PRN; Protocol PRN Reason: Hypoglycemia Protocol Enoxaparin Sodium (Lovenox) 40 mg SC DAILY [facility] Last Admin: 06/29/18 10:31 Dose: 40 mg Ergocalciferol (Drisdol 50,000 Intl Units Cap) 1 cap PO Q7D [facility] Stop: 07/20/18 10:01 Last Admin: 06/29/18 10:46 Dose: 1 cap Escitalopram Oxalate (Lexapro) 10 mg GT DAILY [facility] Last Admin: 06/29/18 10:39 Dose: 10 mg Gentamicin Sulfate (Gentamicin 0.1%) 0 gm TOP TID [facility] Last Admin: 06/29/18 18:35 Dose: 1 oin Glucagon (Glucagen Diagnostic Kit) 0 mg IM STAT PRN; Protocol PRN Reason: Hypoglycemia Protocol Hydrocortisone (Cortizone 1% Cream) 0 gm TOP TID PRN PRN Reason: Rash Hydromorphone HCl (Dilaudid) 1 mg IVP Q3 PRN PRN Reason: Pain, SEVERE (8-10) Last Admin: 06/29/18 16:56 Dose: 1 mg Vancomycin HCl 1,500 mg/ (Sodium Chloride) 500 mls @ 166.6 mls/hr IVPB Q12H [facility] PRN Reason: Protocol Last Admin: 06/29/18 18:31 Dose: 166.6 mls/hr Meropenem 1 gm/ Sodium (Chloride) 100 mls @ 100 mls/hr IVPB Q8H [facility] PRN Reason: Protocol Last Admin: 06/29/18 18:31 Dose: 100 mls/hr Insulin Human Regular (Novolin R) 0 unit SC ACHS [facility] PRN Reason: Protocol Last Admin: 06/29/18 18:29 Dose: Not Given Ipratropium Geraldine (Atrovent) 0.5 mg IH RQ6 [facility] Last Admin: 06/29/18 13:26 Dose: Not Given Lactobacillus Acidophilus (Bacid Acidophilus) 1 cap PEG BID [facility] Last Admin: 06/29/18 10:40 Dose: 1 cap Loperamide HCl (Imodium) 1 mg PO Q2H PRN PRN Reason: Diarrhea Last Admin: 06/29/18 18:34 Dose: 1 mg Lorazepam (Ativan) 1 mg IVP BID [facility] Last Admin: 06/29/18 18:29 Dose: 1 mg Metoprolol Tartrate (Lopressor) 12.5 mg PEG BID [facility] Last Admin: 06/29/18 18:29 Dose: 12.5 mg Nicotine (Nicoderm Cq) 1 patch TD DAILY [facility] Last Admin: 06/29/18 10:29 Dose: 1 patch Ondansetron HCl (Zofran Inj) 4 mg IVP Q6H PRN PRN Reason: Nausea/Vomiting Last Admin: 06/29/18 07:41 Dose: 4 mg Pantoprazole Sodium (Protonix Susp) 40 mg PO Q24H [facility] Last Admin: 06/29/18 10:50 Dose: 40 mg Saliva Substitute (Mouth Kote 236 Ml) 0 ml MM Q6 PRN PRN Reason: Dry mouth Vitamin A (Vitamin A & D Oint Ud Foilpak) 1 ea TOP Q8 PRN PRN Reason: dry lips Vitamin E (Vitamin E 400 Units Cap) 400 intlu GT DAILY [facility] Last Admin: 06/29/18 10:52 Dose: 400 intlu - Labs Labs: 06/28/18 06:45 06/28/18 06:45 PT 14.3 SECONDS (9.7-12.2) H 06/10/18 07:05 INR 1.3 06/10/18 07:05 APTT 33 SECONDS (21-34) 05/25/18 06:16 Attending/Attestation - Attestation I have personally seen and examined this patient.: Yes I have fully participated in the care of the patient.: Yes I have reviewed all pertinent clinical information, including history, physical exam and plan: Yes Notes (Text): 06/29/18 19:00 This is a late entry. Care of this patient was discussed with the resident. Patient is also on Meropenem 500 mg IV Q8H Franki Denise D.O.
[2018-06-27] MEDS: Meropenem 1 GM in Sodium Chloride 0.9% 100 ML IVPB SCH ×3 (07:47→22:00)
--- NOTE | 2018-06-27 08:05 | CP.PCM.PN ---
<Barbara Badillo - Last Filed: 06/27/18 08:04> Subjective - Date & Time of Evaluation Date of Evaluation: 06/27/18 Time of Evaluation: 08:04 - Subjective Subjective: General surgery progress note for Dr. Harley-Barbara Badillo, PGY-2 Pt S & E at bedside at 0705 Pt reports minimal abdominal pain, states that wound vac leaks when she moves. Denies N & V, F & C. NGT 815cc clear output/24hrs Objective - Vital Signs/Intake and Output Vital Signs (last 24 hours): Temp Pulse Resp BP Pulse Ox 97.9 F 88 20 117/80 97 06/27/18 07:00 06/27/18 07:00 06/27/18 07:00 06/27/18 07:00 06/27/18 07:00 Intake and Output: 06/27/18 06/27/18 06:59 18:59 Intake Total 1100 Output Total 460 Balance 640 - Medications Medications: Current Medications Acetaminophen (Tylenol 650mg/20.3ml Solution Ud) 975 mg GT Q8H PRN PRN Reason: Pain, Mild (1-3) Last Admin: 06/25/18 18:42 Dose: 975 mg Calcium Acetate (Phoslo) 667 mg GT TIDCC [facility] Last Admin: 06/26/18 17:54 Dose: 667 mg Cholestyramine Resin (Questran) 4 gm PO BID [facility] Last Admin: 06/26/18 18:00 Dose: 4 gm Dextrose (Dextrose 50% Inj) 0 ml IV STAT PRN; Protocol PRN Reason: Hypoglycemia Protocol Dextrose (Glutose 15) 0 gm PO ONCE PRN; Protocol PRN Reason: Hypoglycemia Protocol Enoxaparin Sodium (Lovenox) 40 mg SC DAILY [facility] Last Admin: 06/26/18 09:53 Dose: 40 mg Ergocalciferol (Drisdol 50,000 Intl Units Cap) 1 cap PO Q7D [facility] Stop: 07/20/18 10:01 Escitalopram Oxalate (Lexapro) 10 mg GT DAILY [facility] Last Admin: 06/26/18 10:57 Dose: 10 mg Gentamicin Sulfate (Gentamicin 0.1%) 0 gm TOP TID [facility] Last Admin: 06/26/18 18:01 Dose: 1 oin Glucagon (Glucagen Diagnostic Kit) 0 mg IM STAT PRN; Protocol PRN Reason: Hypoglycemia Protocol Hydrocortisone (Cortizone 1% Cream) 0 gm TOP TID PRN PRN Reason: Rash Hydromorphone HCl (Dilaudid) 1 mg IVP Q3 PRN PRN Reason: Pain, SEVERE (8-10) Last Admin: 06/27/18 07:44 Dose: 1 mg Ferric Sodium Gluconate Complex 125 mg/ Sodium Chloride 110 mls @ 100 mls/hr IVPB Q24H [facility] Stop: 06/29/18 14:31 Last Admin: 06/26/18 15:05 Dose: 100 mls/hr Vancomycin HCl 1,500 mg/ (Sodium Chloride) 500 mls @ 166.6 mls/hr IVPB Q12H [facility] PRN Reason: Protocol Last Admin: 06/27/18 04:48 Dose: 166.6 mls/hr Meropenem 1 gm/ Sodium (Chloride) 100 mls @ 100 mls/hr IVPB Q8H [facility] PRN Reason: Protocol Last Admin: 06/27/18 07:47 Dose: 100 mls/hr Insulin Human Regular (Novolin R) 0 unit SC Q6 [facility] PRN Reason: Protocol Last Admin: 06/27/18 06:30 Dose: Not Given Ipratropium Chilcoot (Atrovent) 0.5 mg IH RQ6 [facility] Last Admin: 06/27/18 07:37 Dose: 0.5 mg Lactobacillus Acidophilus (Bacid Acidophilus) 1 cap PEG BID [facility] Last Admin: 06/26/18 17:54 Dose: 1 cap Loperamide HCl (Imodium) 1 mg PO Q2H PRN PRN Reason: Diarrhea Last Admin: 06/26/18 09:56 Dose: 1 mg Lorazepam (Ativan) 1 mg IVP BID [facility] Last Admin: 06/26/18 17:54 Dose: 1 mg Metoprolol Tartrate (Lopressor) 12.5 mg PEG BID [facility] Last Admin: 06/26/18 17:54 Dose: 12.5 mg Nicotine (Nicoderm Cq) 1 patch TD DAILY [facility] Last Admin: 06/26/18 09:53 Dose: 1 patch Ondansetron HCl (Zofran Inj) 4 mg IVP Q6H PRN PRN Reason: Nausea/Vomiting Last Admin: 06/26/18 10:01 Dose: 4 mg Pantoprazole Sodium (Protonix Susp) 40 mg PO Q24H [facility] Last Admin: 06/26/18 09:53 Dose: 40 mg Saliva Substitute (Mouth Kote 236 Ml) 0 ml MM Q6 PRN PRN Reason: Dry mouth Vitamin A (Vitamin A & D Oint Ud Foilpak) 1 ea TOP Q8 PRN PRN Reason: dry lips Vitamin E (Vitamin E 400 Units Cap) 400 intlu GT DAILY [facility] Last Admin: 06/26/18 09:54 Dose: 400 intlu - Labs Labs: 06/26/18 04:55 06/26/18 04:55 PT 14.3 SECONDS (9.7-12.2) H 06/10/18 07:05 INR 1.3 06/10/18 07:05 APTT 33 SECONDS (21-34) 05/25/18 06:16 - Constitutional Appears: Non-toxic, No Acute Distress - Head Exam Head Exam: ATRAUMATIC, NORMAL INSPECTION, NORMOCEPHALIC Additional comments: NGT in place Clear liquid output to suction cannister, ~500cc - Eye Exam Eye Exam: EOMI, Normal appearance - ENT Exam ENT Exam: Mucous Membranes Moist, Normal Exam - Neck Exam Neck Exam: Full ROM, Normal Inspection - Respiratory Exam Respiratory Exam: NORMAL BREATHING PATTERN - Cardiovascular Exam Cardiovascular Exam: REGULAR RHYTHM, +S1, +S2 - GI/Abdominal Exam GI & Abdominal Exam: Soft. absent: Tenderness Additional comments: wound vac in place - Neurological Exam Neurological Exam: Alert, Awake, CN II-XII Intact, Oriented x3 - Psychiatric Exam Psychiatric exam: Normal Affect, Normal Mood - Skin Skin Exam: Dry, Intact, Normal Color, Warm Assessment and Plan - Assessment and Plan (Free Text) Assessment: 38F s/p Binta-en-Y gastric bypass (2013) w/bowel ischemic 2/2 internal hernia POD#44 s/p ex lap, reduction of internal hernia, DANNI, drainage of abdominal collections, temporary abdominal closure & EGD POD#41 s/p re-exploration, resection of ileum & Binta limb including previous gastrojejunostomy, reversal of bypass, primary anastomosis of ileum-ileum, ileum -ileum, and ileum-jejunum. Gastrostomy tube in bypassed stomach, EGD Wound vac in place over midline incision Plan: Monitor wound vac output Wound vac changes Q72H Wound vac changed today Cont NPO/NGT Monitor NGT output NGT to low-intermittent wall suction Cont TPN OOBTC Ambulate with assistance Encourage IS use Awaiting Dr. Mccray's response to coordinate take back surgery Will DW Dr. Cricket Badillo, PGY-2 <Gómez Harley - Last Filed: 06/28/18 17:34> Objective - Vital Signs/Intake and Output Vital Signs (last 24 hours): Temp Pulse Resp BP Pulse Ox 98.2 F 97 H 20 110/77 97 06/28/18 15:00 06/28/18 15:00 06/28/18 15:00 06/28/18 15:00 06/28/18 15:00 Intake and Output: 06/28/18 06/28/18 06:59 18:59 Intake Total 400 Output Total 110 60 Balance 290 -60 - Medications Medications: Current Medications Acetaminophen (Tylenol 650mg/20.3ml Solution Ud) 975 mg GT Q8H PRN PRN Reason: Pain, Mild (1-3) Last Admin: 06/25/18 18:42 Dose: 975 mg Calcium Acetate (Phoslo) 667 mg GT TIDCC [facility] Last Admin: 06/28/18 13:00 Dose: 667 mg Cholestyramine Resin (Questran) 4 gm PO BID [facility] Last Admin: 06/28/18 09:28 Dose: 4 gm Dextrose (Dextrose 50% Inj) 0 ml IV STAT PRN; Protocol PRN Reason: Hypoglycemia Protocol Dextrose (Glutose 15) 0 gm PO ONCE PRN; Protocol PRN Reason: Hypoglycemia Protocol Enoxaparin Sodium (Lovenox) 40 mg SC DAILY [facility] Last Admin: 06/28/18 09:27 Dose: 40 mg Ergocalciferol (Drisdol 50,000 Intl Units Cap) 1 cap PO Q7D [facility] Stop: 07/20/18 10:01 Escitalopram Oxalate (Lexapro) 10 mg GT DAILY [facility] Last Admin: 06/28/18 09:29 Dose: 10 mg Gentamicin Sulfate (Gentamicin 0.1%) 0 gm TOP TID [facility] Last Admin: 06/28/18 14:00 Dose: 1 oin Glucagon (Glucagen Diagnostic Kit) 0 mg IM STAT PRN; Protocol PRN Reason: Hypoglycemia Protocol Hydrocortisone (Cortizone 1% Cream) 0 gm TOP TID PRN PRN Reason: Rash Hydromorphone HCl (Dilaudid) 1 mg IVP Q3 PRN PRN Reason: Pain, SEVERE (8-10) Last Admin: 06/28/18 15:31 Dose: 1 mg Ferric Sodium Gluconate Complex 125 mg/ Sodium Chloride 110 mls @ 100 mls/hr IVPB Q24H [facility] Stop: 06/29/18 14:31 Last Admin: 06/27/18 14:30 Dose: 100 mls/hr Vancomycin HCl 1,500 mg/ (Sodium Chloride) 500 mls @ 166.6 mls/hr IVPB Q12H [facility] PRN Reason: Protocol Last Admin: 06/28/18 04:57 Dose: 166.6 mls/hr Meropenem 1 gm/ Sodium (Chloride) 100 mls @ 100 mls/hr IVPB Q8H [facility] PRN Reason: Protocol Last Admin: 06/28/18 15:27 Dose: 100 mls/hr Insulin Human Regular (Novolin R) 0 unit SC ACHS [facility] PRN Reason: Protocol Ipratropium Chilcoot (Atrovent) 0.5 mg IH RQ6 [facility] Last Admin: 06/28/18 13:36 Dose: 0.5 mg Lactobacillus Acidophilus (Bacid Acidophilus) 1 cap PEG BID [facility] Last Admin: 06/28/18 09:28 Dose: 1 cap Loperamide HCl (Imodium) 1 mg PO Q2H PRN PRN Reason: Diarrhea Last Admin: 06/28/18 09:29 Dose: 1 mg Lorazepam (Ativan) 1 mg IVP BID [facility] Last Admin: 06/28/18 09:50 Dose: 1 mg Metoprolol Tartrate (Lopressor) 12.5 mg PEG BID [facility] Last Admin: 06/28/18 09:28 Dose: 12.5 mg Nicotine (Nicoderm Cq) 1 patch TD DAILY [facility] Last Admin: 06/28/18 09:28 Dose: 1 patch Ondansetron HCl (Zofran Inj) 4 mg IVP Q6H PRN PRN Reason: Nausea/Vomiting Last Admin: 06/28/18 12:30 Dose: 4 mg Pantoprazole Sodium (Protonix Susp) 40 mg PO Q24H [facility] Last Admin: 06/28/18 09:28 Dose: 40 mg Saliva Substitute (Mouth Kote 236 Ml) 0 ml MM Q6 PRN PRN Reason: Dry mouth Vitamin A (Vitamin A & D Oint Ud Foilpak) 1 ea TOP Q8 PRN PRN Reason: dry lips Vitamin E (Vitamin E 400 Units Cap) 400 intlu GT DAILY [facility] Last Admin: 06/28/18 09:28 Dose: 400 intlu - Labs Labs: 06/28/18 06:45 06/28/18 06:45 PT 14.3 SECONDS (9.7-12.2) H 06/10/18 07:05 INR 1.3 06/10/18 07:05 APTT 33 SECONDS (21-34) 05/25/18 06:16 Attending/Attestation - Attestation I have personally seen and examined this patient.: Yes I have fully participated in the care of the patient.: Yes I have reviewed all pertinent clinical information, including history, physical exam and plan: Yes Notes (Text): Pt was seen and examined at bedside Agree with above note and assessment Pt is stable clinically c.w current mx Avoid narcotics Plan d.w pt in detail Risk and benefit explained in detail.
[2018-06-27] MEDS: Enoxaparin 40 mg Syringe SC SCH (09:08)
[2018-06-27] MEDS: Pantoprazole 40 mg Susp UD PO SCH (09:08)
[2018-06-27] MEDS: Lactobacillus Acidophilus 500 MU Cap PEG SCH ×2 (09:10→17:36)
[2018-06-27] MEDS: Cholestyramine 4 gm/Pkt UD PO SCH ×2 (09:10→17:37)
[2018-06-27] MEDS: Loperamide Hydrochloride 1 mg/5 ml Cup PO PRN (09:11)
[2018-06-27] MEDS: GENTAMICIN 0.1% TOP SCH ×3 (10:00→17:42)
[2018-06-27] MEDS: Ferric Sodium Gluconat Complex 125 MG in Sodium Chloride 0.9% 100 ML IVPB SCH (14:30)
--- NOTE | 2018-06-27 19:39 | CP.PCM.PN ---
Subjective - Date & Time of Evaluation Date of Evaluation: 06/27/18 Time of Evaluation: 12:00 - Subjective Subjective: dictated Objective - Vital Signs/Intake and Output Vital Signs (last 24 hours): Temp Pulse Resp BP Pulse Ox 98.5 F 88 20 117/80 98 06/27/18 15:00 06/27/18 15:00 06/27/18 15:00 06/27/18 15:00 06/27/18 15:00 - Medications Medications: Current Medications Acetaminophen (Tylenol 650mg/20.3ml Solution Ud) 975 mg GT Q8H PRN PRN Reason: Pain, Mild (1-3) Last Admin: 06/25/18 18:42 Dose: 975 mg Calcium Acetate (Phoslo) 667 mg GT TIDCC [facility] Last Admin: 06/27/18 17:35 Dose: 667 mg Cholestyramine Resin (Questran) 4 gm PO BID [facility] Last Admin: 06/27/18 17:37 Dose: 4 gm Dextrose (Dextrose 50% Inj) 0 ml IV STAT PRN; Protocol PRN Reason: Hypoglycemia Protocol Dextrose (Glutose 15) 0 gm PO ONCE PRN; Protocol PRN Reason: Hypoglycemia Protocol Enoxaparin Sodium (Lovenox) 40 mg SC DAILY [facility] Last Admin: 06/27/18 09:08 Dose: 40 mg Ergocalciferol (Drisdol 50,000 Intl Units Cap) 1 cap PO Q7D [facility] Stop: 07/20/18 10:01 Escitalopram Oxalate (Lexapro) 10 mg GT DAILY [facility] Last Admin: 06/27/18 09:10 Dose: 10 mg Gentamicin Sulfate (Gentamicin 0.1%) 0 gm TOP TID [facility] Last Admin: 06/27/18 17:42 Dose: 1 oin Glucagon (Glucagen Diagnostic Kit) 0 mg IM STAT PRN; Protocol PRN Reason: Hypoglycemia Protocol Hydrocortisone (Cortizone 1% Cream) 0 gm TOP TID PRN PRN Reason: Rash Hydromorphone HCl (Dilaudid) 1 mg IVP Q3 PRN PRN Reason: Pain, SEVERE (8-10) Last Admin: 06/27/18 17:30 Dose: 1 mg Ferric Sodium Gluconate Complex 125 mg/ Sodium Chloride 110 mls @ 100 mls/hr IVPB Q24H [facility] Stop: 06/29/18 14:31 Last Admin: 06/27/18 14:30 Dose: 100 mls/hr Vancomycin HCl 1,500 mg/ (Sodium Chloride) 500 mls @ 166.6 mls/hr IVPB Q12H [facility] PRN Reason: Protocol Last Admin: 06/27/18 17:40 Dose: 166.6 mls/hr Meropenem 1 gm/ Sodium (Chloride) 100 mls @ 100 mls/hr IVPB Q8H [facility] PRN Reason: Protocol Last Admin: 06/27/18 14:57 Dose: 100 mls/hr Insulin Human Regular (Novolin R) 0 unit SC Q6 [facility] PRN Reason: Protocol Last Admin: 06/27/18 12:00 Dose: Not Given Ipratropium Latexo (Atrovent) 0.5 mg IH RQ6 [facility] Last Admin: 06/27/18 07:37 Dose: 0.5 mg Lactobacillus Acidophilus (Bacid Acidophilus) 1 cap PEG BID [facility] Last Admin: 06/27/18 17:36 Dose: 1 cap Loperamide HCl (Imodium) 1 mg PO Q2H PRN PRN Reason: Diarrhea Last Admin: 06/27/18 09:11 Dose: 1 mg Lorazepam (Ativan) 1 mg IVP BID [facility] Last Admin: 06/27/18 17:31 Dose: 1 mg Metoprolol Tartrate (Lopressor) 12.5 mg PEG BID [facility] Last Admin: 06/27/18 17:35 Dose: 12.5 mg Nicotine (Nicoderm Cq) 1 patch TD DAILY [facility] Last Admin: 06/27/18 09:08 Dose: 1 patch Ondansetron HCl (Zofran Inj) 4 mg IVP Q6H PRN PRN Reason: Nausea/Vomiting Last Admin: 06/26/18 10:01 Dose: 4 mg Pantoprazole Sodium (Protonix Susp) 40 mg PO Q24H [facility] Last Admin: 06/27/18 09:08 Dose: 40 mg Saliva Substitute (Mouth Kote 236 Ml) 0 ml MM Q6 PRN PRN Reason: Dry mouth Vitamin A (Vitamin A & D Oint Ud Foilpak) 1 ea TOP Q8 PRN PRN Reason: dry lips Vitamin E (Vitamin E 400 Units Cap) 400 intlu GT DAILY [facility] Last Admin: 06/27/18 09:10 Dose: 400 intlu - Labs Labs: 06/26/18 04:55 06/26/18 04:55 PT 14.3 SECONDS (9.7-12.2) H 06/10/18 07:05 INR 1.3 06/10/18 07:05 APTT 33 SECONDS (21-34) 05/25/18 06:16
--- NOTE | 2018-06-28 00:19 | PN ---
DATE: 06/27/2018 SUBJECTIVE: Iker Bernal was awake, alert. She said the wound VAC was changed today and she was asking me what bacteria she has, I told her not to play around with J tube site and we are going to put a cream there. She is also left on vancomycin and sometimes she has gram negative and other times she has gram positive and this time it is pseudomonas on both the wounds, before was enterococcus. We will need to follow the surgical note and we will continue IV antibiotics and would like to know further plans on this patient. I am covering with both antibiotics at this time. PHYSICAL EXAMINATION: VITAL SIGNS: Stable. HEENT: Head is atraumatic. NECK: Supple. NG tube is there. LUNGS: Clear. HEART: S1, S2 are regular. ABDOMEN: Soft. Has a vacuum there and has a jejunostomy tube. EXTREMITIES: Have no edema. ASSESSMENT AND PLAN: She had ischemic bowel and she has had bypass surgery in the past monitor wound VAC and spoken to the patient about not eating or drinking. Awaiting Dr. Mccray's response to coordinate to take back to surgery, so they were waiting for these; meanwhile, she is on antibiotics at this time for the organisms which have been isolated from the openings. Guero Rivera MD
[2018-06-28] MEDS: (Novolin R) Insulin Human Regular 100 units/ml vial SC SCH ×6 (00:47→22:00)
[2018-06-28] MEDS: Ipratropium 0.02% Inhal Soln (0.5 mg/2.5 ml) UD IH SCH ×4 (01:08→19:18)
[2018-06-28 06:53] LABS: BASO # 0.1 K/uL (0.0-0.2); EOS # 0.5 K/uL (0.0-0.7); EOS % 6.7 % (0.0-4.0); HEMOGLOBIN 9.2 g/dL (11.0-16.0); LYMPH # 2.2 K/uL (1.0-4.3); MEAN CELL VOLUME 87.7 fL (81.0-99.0); MEAN PLATELET VOLUME 7.3 fL (7.2-11.7); MONO # 0.6 K/uL (0.0-0.8); MONO % 7.8 % (0.0-10.0); NEUT % 54.5 % (50.0-75.0); RBC 3.27 Mil/uL (3.80-5.20); RED CELL DISTRIBUTION WIDTH 19.8 % (11.5-14.5); WHITE BLOOD COUNT 7.3 K/uL (4.8-10.8)
[2018-06-28] MEDS: Meropenem 1 GM in Sodium Chloride 0.9% 100 ML IVPB SCH ×3 (07:30→23:53)
[2018-06-28 07:38] LABS: ALB/GLOB RATIO 0.9 (1.0-2.1); ALBUMIN 2.5 g/dL (3.5-5.0); ALT/SGPT 25 U/L (9-52); AST/SGOT 17 U/L (14-36); BLOOD UREA NITROGEN 3 mg/dL (7-17); GFR NON-AFRICAN AMERICAN > 60
[2018-06-28] MEDS: Enoxaparin 40 mg Syringe SC SCH (09:27)
[2018-06-28] MEDS: Pantoprazole 40 mg Susp UD PO SCH (09:28)
[2018-06-28] MEDS: Cholestyramine 4 gm/Pkt UD PO SCH ×2 (09:28→17:43)
[2018-06-28] MEDS: Lactobacillus Acidophilus 500 MU Cap PEG SCH ×2 (09:28→17:42)
[2018-06-28] MEDS: Loperamide Hydrochloride 1 mg/5 ml Cup PO PRN ×2 (09:29→17:42)
[2018-06-28] MEDS: GENTAMICIN 0.1% TOP SCH ×3 (10:00→17:52)
--- NOTE | 2018-06-28 11:28 | CP.PCM.PN ---
<Morris Connolly - Last Filed: 06/28/18 16:40> Subjective - Date & Time of Evaluation Date of Evaluation: 06/28/18 Time of Evaluation: 10:15 - Subjective Subjective: Pt seen and examined at bedside this am. States she has been tolerating iron infusions well, denies any associated side effects. Denies dark stool or any active bleeding. No acute events reported overnight. 12-point ROS obtained, otherwise neg as per pt. Objective - Vital Signs/Intake and Output Vital Signs (last 24 hours): Temp Pulse Resp BP Pulse Ox 98.7 F 94 H 20 126/80 96 06/28/18 07:00 06/28/18 07:00 06/28/18 07:00 06/28/18 07:00 06/28/18 07:00 Intake and Output: 06/28/18 06/28/18 06:59 18:59 Intake Total 400 Output Total 110 60 Balance 290 -60 - Medications Medications: Current Medications Acetaminophen (Tylenol 650mg/20.3ml Solution Ud) 975 mg GT Q8H PRN PRN Reason: Pain, Mild (1-3) Last Admin: 06/25/18 18:42 Dose: 975 mg Calcium Acetate (Phoslo) 667 mg GT TIDCC [facility] Last Admin: 06/28/18 08:00 Dose: 667 mg Cholestyramine Resin (Questran) 4 gm PO BID [facility] Last Admin: 06/28/18 09:28 Dose: 4 gm Dextrose (Dextrose 50% Inj) 0 ml IV STAT PRN; Protocol PRN Reason: Hypoglycemia Protocol Dextrose (Glutose 15) 0 gm PO ONCE PRN; Protocol PRN Reason: Hypoglycemia Protocol Enoxaparin Sodium (Lovenox) 40 mg SC DAILY [facility] Last Admin: 06/28/18 09:27 Dose: 40 mg Ergocalciferol (Drisdol 50,000 Intl Units Cap) 1 cap PO Q7D [facility] Stop: 07/20/18 10:01 Escitalopram Oxalate (Lexapro) 10 mg GT DAILY [facility] Last Admin: 06/28/18 09:29 Dose: 10 mg Gentamicin Sulfate (Gentamicin 0.1%) 0 gm TOP TID [facility] Last Admin: 06/27/18 17:42 Dose: 1 oin Glucagon (Glucagen Diagnostic Kit) 0 mg IM STAT PRN; Protocol PRN Reason: Hypoglycemia Protocol Hydrocortisone (Cortizone 1% Cream) 0 gm TOP TID PRN PRN Reason: Rash Hydromorphone HCl (Dilaudid) 1 mg IVP Q3 PRN PRN Reason: Pain, SEVERE (8-10) Last Admin: 06/28/18 09:15 Dose: 1 mg Ferric Sodium Gluconate Complex 125 mg/ Sodium Chloride 110 mls @ 100 mls/hr IVPB Q24H [facility] Stop: 06/29/18 14:31 Last Admin: 06/27/18 14:30 Dose: 100 mls/hr Vancomycin HCl 1,500 mg/ (Sodium Chloride) 500 mls @ 166.6 mls/hr IVPB Q12H [facility] PRN Reason: Protocol Last Admin: 06/28/18 04:57 Dose: 166.6 mls/hr Meropenem 1 gm/ Sodium (Chloride) 100 mls @ 100 mls/hr IVPB Q8H [facility] PRN Reason: Protocol Last Admin: 06/27/18 22:00 Dose: 100 mls/hr Insulin Human Regular (Novolin R) 0 unit SC Q6 [facility] PRN Reason: Protocol Last Admin: 06/28/18 00:47 Dose: Not Given Ipratropium [place] (Atrovent) 0.5 mg IH RQ6 [facility] Last Admin: 06/28/18 08:04 Dose: Not Given Lactobacillus Acidophilus (Bacid Acidophilus) 1 cap PEG BID [facility] Last Admin: 06/28/18 09:28 Dose: 1 cap Loperamide HCl (Imodium) 1 mg PO Q2H PRN PRN Reason: Diarrhea Last Admin: 06/28/18 09:29 Dose: 1 mg Lorazepam (Ativan) 1 mg IVP BID [facility] Last Admin: 06/28/18 09:50 Dose: 1 mg Metoprolol Tartrate (Lopressor) 12.5 mg PEG BID [facility] Last Admin: 06/28/18 09:28 Dose: 12.5 mg Nicotine (Nicoderm Cq) 1 patch TD DAILY [facility] Last Admin: 06/28/18 09:28 Dose: 1 patch Ondansetron HCl (Zofran Inj) 4 mg IVP Q6H PRN PRN Reason: Nausea/Vomiting Last Admin: 06/26/18 10:01 Dose: 4 mg Pantoprazole Sodium (Protonix Susp) 40 mg PO Q24H [facility] Last Admin: 06/28/18 09:28 Dose: 40 mg Saliva Substitute (Mouth Kote 236 Ml) 0 ml MM Q6 PRN PRN Reason: Dry mouth Vitamin A (Vitamin A & D Oint Ud Foilpak) 1 ea TOP Q8 PRN PRN Reason: dry lips Vitamin E (Vitamin E 400 Units Cap) 400 intlu GT DAILY [facility] Last Admin: 06/28/18 09:28 Dose: 400 intlu - Labs Labs: 06/28/18 06:45 06/28/18 06:45 PT 14.3 SECONDS (9.7-12.2) H 06/10/18 07:05 INR 1.3 06/10/18 07:05 APTT 33 SECONDS (21-34) 05/25/18 06:16 - Constitutional Appears: Non-toxic, No Acute Distress - Head Exam Head Exam: ATRAUMATIC, NORMOCEPHALIC - Eye Exam Eye Exam: EOMI, Normal appearance, PERRL - ENT Exam ENT Exam: Mucous Membranes Moist - Respiratory Exam Respiratory Exam: Clear to Ausculation Bilateral, NORMAL BREATHING PATTERN - Cardiovascular Exam Cardiovascular Exam: REGULAR RHYTHM, +S1, +S2 - GI/Abdominal Exam GI & Abdominal Exam: Soft. absent: Guarding, Rigid, Tenderness, Rebound Additional comments: Gastrostomy tube in place - Extremities Exam Extremities Exam: Normal Capillary Refill, Normal Inspection. absent: Pedal Edema - Neurological Exam Neurological Exam: Alert, Awake, CN II-XII Intact, Oriented x3 - Psychiatric Exam Psychiatric exam: Normal Affect, Normal Mood - Skin Skin Exam: Dry, Intact, Normal Color, Warm Assessment and Plan - Assessment and Plan (Free Text) Assessment: 38F PMHx chronic abd pain, gastric bypass, s/p debridement of bowel x2 for internal hernia, with iron-deficiency anemia. Plan: Iron-deficiency anemia -2/2 malabsorption from gastric bypass surgery -C/w IV iron Further recs as per Dr. Cash, attending. Morris Connolly, DO PGY-1 <Addison Cash - Last Filed: 06/29/18 23:41> Objective - Vital Signs/Intake and Output Vital Signs (last 24 hours): Temp Pulse Resp BP Pulse Ox 98.1 F 106 H 20 115/77 95 06/29/18 15:00 06/29/18 15:00 06/29/18 15:00 06/29/18 15:00 06/29/18 15:00 Intake and Output: 06/29/18 06/30/18 18:59 06:59 Intake Total 150 1100 Output Total 0 50 Balance 150 1050 - Medications Medications: Current Medications Acetaminophen (Tylenol 650mg/20.3ml Solution Ud) 975 mg GT Q8H PRN PRN Reason: Pain, Mild (1-3) Last Admin: 06/25/18 18:42 Dose: 975 mg Calcium Acetate (Phoslo) 667 mg GT TIDCC [facility] Last Admin: 06/29/18 18:29 Dose: 667 mg Cholestyramine Resin (Questran) 4 gm PO BID [facility] Last Admin: 06/29/18 18:31 Dose: 4 gm Dextrose (Dextrose 50% Inj) 0 ml IV STAT PRN; Protocol PRN Reason: Hypoglycemia Protocol Dextrose (Glutose 15) 0 gm PO ONCE PRN; Protocol PRN Reason: Hypoglycemia Protocol Enoxaparin Sodium (Lovenox) 40 mg SC DAILY [facility] Last Admin: 06/29/18 10:31 Dose: 40 mg Ergocalciferol (Drisdol 50,000 Intl Units Cap) 1 cap PO Q7D [facility] Stop: 07/20/18 10:01 Last Admin: 06/29/18 10:46 Dose: 1 cap Escitalopram Oxalate (Lexapro) 10 mg GT DAILY [facility] Last Admin: 06/29/18 10:39 Dose: 10 mg Gentamicin Sulfate (Gentamicin 0.1%) 0 gm TOP TID [facility] Last Admin: 06/29/18 18:35 Dose: 1 oin Glucagon (Glucagen Diagnostic Kit) 0 mg IM STAT PRN; Protocol PRN Reason: Hypoglycemia Protocol Hydrocortisone (Cortizone 1% Cream) 0 gm TOP TID PRN PRN Reason: Rash Hydromorphone HCl (Dilaudid) 1 mg IVP Q3 PRN PRN Reason: Pain, SEVERE (8-10) Last Admin: 06/29/18 22:57 Dose: 1 mg Vancomycin HCl 1,500 mg/ (Sodium Chloride) 500 mls @ 166.6 mls/hr IVPB Q12H [facility] PRN Reason: Protocol Last Admin: 06/29/18 18:31 Dose: 166.6 mls/hr Meropenem 1 gm/ Sodium (Chloride) 100 mls @ 100 mls/hr IVPB Q8H [facility] PRN Reason: Protocol Last Admin: 06/29/18 18:31 Dose: 100 mls/hr Insulin Human Regular (Novolin R) 0 unit SC ACHS [facility] PRN Reason: Protocol Last Admin: 06/29/18 22:50 Dose: Not Given Ipratropium [place] (Atrovent) 0.5 mg IH RQ6 [facility] Last Admin: 06/29/18 13:26 Dose: Not Given Lactobacillus Acidophilus (Bacid Acidophilus) 1 cap PEG BID [facility] Last Admin: 06/29/18 19:56 Dose: 1 cap Loperamide HCl (Imodium) 1 mg PO Q2H PRN PRN Reason: Diarrhea Last Admin: 06/29/18 18:34 Dose: 1 mg Lorazepam (Ativan) 1 mg IVP BID [facility] Last Admin: 06/29/18 18:29 Dose: 1 mg Metoprolol Tartrate (Lopressor) 12.5 mg PEG BID [facility] Last Admin: 06/29/18 18:29 Dose: 12.5 mg Nicotine (Nicoderm Cq) 1 patch TD DAILY [facility] Last Admin: 06/29/18 10:29 Dose: 1 patch Ondansetron HCl (Zofran Inj) 4 mg IVP Q6H PRN PRN Reason: Nausea/Vomiting Last Admin: 06/29/18 07:41 Dose: 4 mg Pantoprazole Sodium (Protonix Susp) 40 mg PO Q24H [facility] Last Admin: 06/29/18 10:50 Dose: 40 mg Saliva Substitute (Mouth Kote 236 Ml) 0 ml MM Q6 PRN PRN Reason: Dry mouth Vitamin A (Vitamin A & D Oint Ud Foilpak) 1 ea TOP Q8 PRN PRN Reason: dry lips Vitamin E (Vitamin E 400 Units Cap) 400 intlu GT DAILY [facility] Last Admin: 06/29/18 10:52 Dose: 400 intlu - Labs Labs: 06/28/18 06:45 06/28/18 06:45 PT 14.3 SECONDS (9.7-12.2) H 06/10/18 07:05 INR 1.3 06/10/18 07:05 APTT 33 SECONDS (21-34) 05/25/18 06:16 Assessment and Plan (1) Iron deficiency anemia Status: Acute - Assessment and Plan (Free Text) Plan: Pt seen and examined, agree with residents note.
[2018-06-28] MEDS: Ferric Sodium Gluconat Complex 125 MG in Sodium Chloride 0.9% 100 ML IVPB SCH (16:30)
--- NOTE | 2018-06-28 18:51 | CP.PCM.PN ---
<Tamia Romano Y - Last Filed: 06/28/18 18:47> Subjective - Date & Time of Evaluation Date of Evaluation: 06/28/18 Time of Evaluation: 11:40 - Subjective Subjective: PGY-1 Medicine Progress note for Dr. Denise Patient was seen and examined today at bedside in no acute distress. Nurse reports no overnight events. Patient complains of difficulty sleeping due to construction noises and flipped sleeping schedule. The wound vac was replaced and still drained 200ml in the last 24 hours. The NGT still suctioned 350ml of clear fluid, likely water/ice chips, in the last 24 hours. She had one loose BM overnight. Gtube is no longer given her any trouble, but reports still feeling hungry despite being at goal feeds. Denies chest pain, shortness of breath, cough, wheezing, fever, chills. Objective - Vital Signs/Intake and Output Vital Signs (last 24 hours): Temp Pulse Resp BP Pulse Ox 98.2 F 97 H 20 110/77 97 06/28/18 15:00 06/28/18 15:00 06/28/18 15:00 06/28/18 15:00 06/28/18 15:00 Intake and Output: 06/28/18 06/28/18 06:59 18:59 Intake Total 400 Output Total 110 60 Balance 290 -60 - Medications Medications: Current Medications Acetaminophen (Tylenol 650mg/20.3ml Solution Ud) 975 mg GT Q8H PRN PRN Reason: Pain, Mild (1-3) Last Admin: 06/25/18 18:42 Dose: 975 mg Calcium Acetate (Phoslo) 667 mg GT TIDCC [facility] Last Admin: 06/28/18 17:41 Dose: 667 mg Cholestyramine Resin (Questran) 4 gm PO BID [facility] Last Admin: 06/28/18 17:43 Dose: 4 gm Dextrose (Dextrose 50% Inj) 0 ml IV STAT PRN; Protocol PRN Reason: Hypoglycemia Protocol Dextrose (Glutose 15) 0 gm PO ONCE PRN; Protocol PRN Reason: Hypoglycemia Protocol Enoxaparin Sodium (Lovenox) 40 mg SC DAILY [facility] Last Admin: 06/28/18 09:27 Dose: 40 mg Ergocalciferol (Drisdol 50,000 Intl Units Cap) 1 cap PO Q7D [facility] Stop: 07/20/18 10:01 Escitalopram Oxalate (Lexapro) 10 mg GT DAILY [facility] Last Admin: 06/28/18 09:29 Dose: 10 mg Gentamicin Sulfate (Gentamicin 0.1%) 0 gm TOP TID [facility] Last Admin: 06/28/18 17:52 Dose: 1 oin Glucagon (Glucagen Diagnostic Kit) 0 mg IM STAT PRN; Protocol PRN Reason: Hypoglycemia Protocol Hydrocortisone (Cortizone 1% Cream) 0 gm TOP TID PRN PRN Reason: Rash Hydromorphone HCl (Dilaudid) 1 mg IVP Q3 PRN PRN Reason: Pain, SEVERE (8-10) Last Admin: 06/28/18 18:36 Dose: 1 mg Ferric Sodium Gluconate Complex 125 mg/ Sodium Chloride 110 mls @ 100 mls/hr IVPB Q24H [facility] Stop: 06/29/18 14:31 Last Admin: 06/28/18 16:30 Dose: 100 mls/hr Vancomycin HCl 1,500 mg/ (Sodium Chloride) 500 mls @ 166.6 mls/hr IVPB Q12H [facility] PRN Reason: Protocol Last Admin: 06/28/18 17:00 Dose: 166.6 mls/hr Meropenem 1 gm/ Sodium (Chloride) 100 mls @ 100 mls/hr IVPB Q8H [facility] PRN Reason: Protocol Last Admin: 06/28/18 15:27 Dose: 100 mls/hr Insulin Human Regular (Novolin R) 0 unit SC ACHS [facility] PRN Reason: Protocol Ipratropium [place] (Atrovent) 0.5 mg IH RQ6 [facility] Last Admin: 06/28/18 13:36 Dose: 0.5 mg Lactobacillus Acidophilus (Bacid Acidophilus) 1 cap PEG BID [facility] Last Admin: 06/28/18 17:42 Dose: 1 cap Loperamide HCl (Imodium) 1 mg PO Q2H PRN PRN Reason: Diarrhea Last Admin: 06/28/18 17:42 Dose: 1 mg Lorazepam (Ativan) 1 mg IVP BID [facility] Last Admin: 06/28/18 17:39 Dose: 1 mg Metoprolol Tartrate (Lopressor) 12.5 mg PEG BID [facility] Last Admin: 06/28/18 17:42 Dose: 12.5 mg Nicotine (Nicoderm Cq) 1 patch TD DAILY [facility] Last Admin: 06/28/18 09:28 Dose: 1 patch Ondansetron HCl (Zofran Inj) 4 mg IVP Q6H PRN PRN Reason: Nausea/Vomiting Last Admin: 06/28/18 12:30 Dose: 4 mg Pantoprazole Sodium (Protonix Susp) 40 mg PO Q24H [facility] Last Admin: 06/28/18 09:28 Dose: 40 mg Saliva Substitute (Mouth Kote 236 Ml) 0 ml MM Q6 PRN PRN Reason: Dry mouth Vitamin A (Vitamin A & D Oint Ud Foilpak) 1 ea TOP Q8 PRN PRN Reason: dry lips Vitamin E (Vitamin E 400 Units Cap) 400 intlu GT DAILY [facility] Last Admin: 06/28/18 09:28 Dose: 400 intlu - Labs Labs: 06/28/18 06:45 06/28/18 06:45 PT 14.3 SECONDS (9.7-12.2) H 06/10/18 07:05 INR 1.3 06/10/18 07:05 APTT 33 SECONDS (21-34) 05/25/18 06:16 - Constitutional Appears: Non-toxic, No Acute Distress, Chronically Ill - Head Exam Head Exam: ATRAUMATIC, NORMOCEPHALIC - Eye Exam Eye Exam: EOMI, Normal appearance - ENT Exam ENT Exam: Mucous Membranes Moist, Normal Exam - Respiratory Exam Respiratory Exam: Clear to Ausculation Bilateral, NORMAL BREATHING PATTERN. absent: Rales, Rhonchi, Wheezes - Cardiovascular Exam Cardiovascular Exam: REGULAR RHYTHM, +S1, +S2. absent: Murmur - GI/Abdominal Exam GI & Abdominal Exam: Soft, Normal Bowel Sounds. absent: Firm, Guarding, Rigid, Tenderness Additional comments: wound vac in place, Gtube in place both dressings c/d/i - Extremities Exam Extremities Exam: Full ROM, Normal Capillary Refill, Normal Inspection Additional comments: peripheral pulses palpable (radial, PT, DP) R PICC in place - Neurological Exam Neurological Exam: Alert, Awake, Normal Gait, Oriented x3 - Skin Skin Exam: Dry, Intact, Normal Color Assessment and Plan - Assessment and Plan (Free Text) Assessment: 38F with a PMH of HTN, HLD, DM2, asthma s/p bowel resection (05/14, 05/16) 2/2 internal hernia s/p [id number] gastric bypass in 2013 admitted for medical optimization prior to reversal of bypass. 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 Harley (surgery) on the case - Wound vac to continuous suction - replaced on 06/22 by surgery - Dr. Cash ([facility]) consulted for Fe status - appreciated recommendations * Iron 17, TIBC 238, % sat 7, ferritin 14.5, retic 3.2 Other cultures: New (06/22/18): abdominal incision: Pseudomonas Aeruginosa sensitive to Meropenem New (06/22/18): Peg site: Pseudomonas Aeruginosa sensitive to Meropenem Peritoneal Fluid (05/14/18): Pseudomonas Aeruginosa sensitive to Meropenem Wound Culture (05/23/18): Yudith Albicans Blood Culture (05/15/18, 05/22/18): no growth Urine Culture (05/22/18): no growth Incision Site (05/31/18): Enterococcus faecalis, Acinetobacter baumannii Stool Cultures (06/03/18): No salmonella, shigella, or campylobacteria isolates Repeat wound culture (06/13/18): Coag neg Staph, enterococcus raffinosus Antibiotics: Continue Vancomycin 1gm IV Q12Hr (started 06/16 @ 12pm), goal vanc trough 15-20 Discontinued Cipro 400 mg IV q12hrs (started 06/02, last day 06/16/18) Completed Flagyl 500mg IVPB q8hrs (active since 05/15/18-06/19/18) Measure vitamin levels and replace as needed: Vit D <12.8- vid D 50,000 unites q1wk x8 wks B12 707, wnl Folate 12.6, wnl Vit A 42, wnl Alpha Vit E 5.6, wnl Vit A, B1, B6, E levels reordered on 06/15. - VitB1: inappropriately submitted, 06/01 value acceptable - VitB6: 5.9, wnl - Tabitha, E collected Medication: Continue Tylenol 975 mg liq q8hrs Continue Dilaudad 1mg IV q3hrs PRN Continue Zofran 4mg IV q6hrs PRN Tachycardia, persistent (110s-130s)- possibly etiologies include pain, infection , anxiety -She is being treated for Left G Tube fluid infection. -Continue Ativan PRN -Continue Dilaudid on board to be used PRN. -Continue Metoprolol tartrate 5mg IV q6hrs with holding parameters (SBP <100, HR <60) Diarrhea, acute, improving- suspect secondary to PO intake by pt -C.Diff (05/22, 05/24, 05/28): negative -Stool O&P (05/25/18): negative -Stool leukocytes (05/25/18): negative -per ID continue Flagyl due to leak around wound vac -Imodium 1mg PO Q2H PRN Anxiety -Geriatric Aide consulted- pt initially refused but then accepted -Psychiatry consulted (Dr. Reyez)- managing Ativan -Continue Ativan 1mg IV BID -Continue Lexapro 10mg GT daily (started 05/31) Insomnia - Discontinue, Benadryl 25 mg IVP HS PRN, clinically not indicated Anemia, acute, stable, pt denies blood in stool -Patient received a total of 2 PRBC (on 05/16) and 4 FFP (on 05/15 and 05/16) -Iron 16, TIBC 205, %sat 4.7, ferritin 75.3 -Monitor CBC Q2D Thrombocytosis, improving (504)- suspect reactive to pain, surgery- Resolved -Monitory CBC Q2D Diabetes Mellitus, Type 2- controlled -From prior note: Admittedly non-compliant, has not taken Januvia for one year -Accuchecks q6hrs -Hypoglycemic protocol -ISS regular -HbA1c 5.8 -History of gastric bypass surgery Hypercholesterolemia- untreated - LDL <30, HDL 23, Chol 59, TG 195 (06/03/18) - History of gastric bypass surgery - Questran 4gm PO BID History of Hypertension, controlled - Since gastric bypass has not taken meds - Metoprolol 5mg IV q6hrs History of Asthma- Chronic - Atrovent q6hrs Nicotine use disorder- Chronic - From prior note: 1ppd x 20 yrs, 1/2ppd x3 yrs - Continue Nicoderm 1 patch TD QD Electrolyte Imbalance: hypokalemia, hypomagnesemia - resolved - Continue to monitor with AM labs, replete as needed Prophylaxis -Hydrocortisone 1% Cream topical TID for Right Upper Inner Arm macular rash- improved -Vitamin A&D topical q8hrs PRN for dry lips -Saliva substitute q6hrs PRN for dry mouth -IVF: not indicated -VTE ppx: Lovenox 40mg SC daily, SCDs; encourage ambulation -GI ppx: Protonix 40mg IV BID, Florastor BID -Code status: full code Dispo: PT consulted- working with patient daily, rec home PT with services. Will stay at [facility] until bypass reversal surgery. Pending Dr. Mccray recs. d/w Dr. Howie Romano PGY-1 <Franki Denise - Last Filed: 06/29/18 19:02> Objective - Vital Signs/Intake and Output Vital Signs (last 24 hours): Temp Pulse Resp BP Pulse Ox 98.1 F 106 H 20 115/77 95 06/29/18 15:00 06/29/18 15:00 06/29/18 15:00 06/29/18 15:00 06/29/18 15:00 Intake and Output: 06/29/18 06/30/18 18:59 06:59 Intake Total 150 Output Total 0 Balance 150 - Medications Medications: Current Medications Acetaminophen (Tylenol 650mg/20.3ml Solution Ud) 975 mg GT Q8H PRN PRN Reason: Pain, Mild (1-3) Last Admin: 06/25/18 18:42 Dose: 975 mg Calcium Acetate (Phoslo) 667 mg GT TIDCC [facility] Last Admin: 06/29/18 18:29 Dose: 667 mg Cholestyramine Resin (Questran) 4 gm PO BID [facility] Last Admin: 06/29/18 18:31 Dose: 4 gm Dextrose (Dextrose 50% Inj) 0 ml IV STAT PRN; Protocol PRN Reason: Hypoglycemia Protocol Dextrose (Glutose 15) 0 gm PO ONCE PRN; Protocol PRN Reason: Hypoglycemia Protocol Enoxaparin Sodium (Lovenox) 40 mg SC DAILY [facility] Last Admin: 06/29/18 10:31 Dose: 40 mg Ergocalciferol (Drisdol 50,000 Intl Units Cap) 1 cap PO Q7D [facility] Stop: 07/20/18 10:01 Last Admin: 06/29/18 10:46 Dose: 1 cap Escitalopram Oxalate (Lexapro) 10 mg GT DAILY [facility] Last Admin: 06/29/18 10:39 Dose: 10 mg Gentamicin Sulfate (Gentamicin 0.1%) 0 gm TOP TID [facility] Last Admin: 06/29/18 18:35 Dose: 1 oin Glucagon (Glucagen Diagnostic Kit) 0 mg IM STAT PRN; Protocol PRN Reason: Hypoglycemia Protocol Hydrocortisone (Cortizone 1% Cream) 0 gm TOP TID PRN PRN Reason: Rash Hydromorphone HCl (Dilaudid) 1 mg IVP Q3 PRN PRN Reason: Pain, SEVERE (8-10) Last Admin: 06/29/18 16:56 Dose: 1 mg Vancomycin HCl 1,500 mg/ (Sodium Chloride) 500 mls @ 166.6 mls/hr IVPB Q12H [facility] PRN Reason: Protocol Last Admin: 06/29/18 18:31 Dose: 166.6 mls/hr Meropenem 1 gm/ Sodium (Chloride) 100 mls @ 100 mls/hr IVPB Q8H [facility] PRN Reason: Protocol Last Admin: 06/29/18 18:31 Dose: 100 mls/hr Insulin Human Regular (Novolin R) 0 unit SC ACHS [facility] PRN Reason: Protocol Last Admin: 06/29/18 18:29 Dose: Not Given Ipratropium [place] (Atrovent) 0.5 mg IH RQ6 [facility] Last Admin: 06/29/18 13:26 Dose: Not Given Lactobacillus Acidophilus (Bacid Acidophilus) 1 cap PEG BID [facility] Last Admin: 06/29/18 10:40 Dose: 1 cap Loperamide HCl (Imodium) 1 mg PO Q2H PRN PRN Reason: Diarrhea Last Admin: 06/29/18 18:34 Dose: 1 mg Lorazepam (Ativan) 1 mg IVP BID [facility] Last Admin: 06/29/18 18:29 Dose: 1 mg Metoprolol Tartrate (Lopressor) 12.5 mg PEG BID [facility] Last Admin: 06/29/18 18:29 Dose: 12.5 mg Nicotine (Nicoderm Cq) 1 patch TD DAILY [facility] Last Admin: 06/29/18 10:29 Dose: 1 patch Ondansetron HCl (Zofran Inj) 4 mg IVP Q6H PRN PRN Reason: Nausea/Vomiting Last Admin: 06/29/18 07:41 Dose: 4 mg Pantoprazole Sodium (Protonix Susp) 40 mg PO Q24H [facility] Last Admin: 06/29/18 10:50 Dose: 40 mg Saliva Substitute (Mouth Kote 236 Ml) 0 ml MM Q6 PRN PRN Reason: Dry mouth Vitamin A (Vitamin A & D Oint Ud Foilpak) 1 ea TOP Q8 PRN PRN Reason: dry lips Vitamin E (Vitamin E 400 Units Cap) 400 intlu GT DAILY [facility] Last Admin: 06/29/18 10:52 Dose: 400 intlu - Labs Labs: 06/28/18 06:45 06/28/18 06:45 PT 14.3 SECONDS (9.7-12.2) H 06/10/18 07:05 INR 1.3 06/10/18 07:05 APTT 33 SECONDS (21-34) 05/25/18 06:16 Attending/Attestation - Attestation I have personally seen and examined this patient.: Yes I have fully participated in the care of the patient.: Yes I have reviewed all pertinent clinical information, including history, physical exam and plan: Yes Notes (Text): 06/29/18 19:01 This is a late entry. Care of this patient was discussed with the resident. Patient is also on Meropenem 500 mg IV Q8H Franki Denise D.O.
[2018-06-29] MEDS: Ipratropium 0.02% Inhal Soln (0.5 mg/2.5 ml) UD IH SCH ×3 (01:33→13:26)
[2018-06-29] MEDS: Meropenem 1 GM in Sodium Chloride 0.9% 100 ML IVPB SCH ×2 (07:30→18:31)
[2018-06-29] MEDS: (Novolin R) Insulin Human Regular 100 units/ml vial SC SCH ×4 (07:30→22:50)
--- NOTE | 2018-06-29 09:09 | CP.PCM.PN ---
<Morris Connolly - Last Filed: 06/29/18 09:50> Subjective - Date & Time of Evaluation Date of Evaluation: 06/29/18 Time of Evaluation: 09:30 - Subjective Subjective: Pt seen and examined at bedside this am. States she has been tolerating iron infusions well, denies any associated side effects. 12-point ROS obtained, otherwise neg as per pt. Objective - Vital Signs/Intake and Output Vital Signs (last 24 hours): Temp Pulse Resp BP Pulse Ox 98.1 F 92 H 18 121/81 95 06/29/18 07:00 06/29/18 07:00 06/29/18 07:00 06/29/18 07:00 06/29/18 07:00 Intake and Output: 06/29/18 06/29/18 06:59 18:59 Intake Total 1100 Output Total 325 Balance 775 - Medications Medications: Current Medications Acetaminophen (Tylenol 650mg/20.3ml Solution Ud) 975 mg GT Q8H PRN PRN Reason: Pain, Mild (1-3) Last Admin: 06/25/18 18:42 Dose: 975 mg Calcium Acetate (Phoslo) 667 mg GT TIDCC [facility] Last Admin: 06/29/18 07:36 Dose: 667 mg Cholestyramine Resin (Questran) 4 gm PO BID [facility] Last Admin: 06/28/18 17:43 Dose: 4 gm Dextrose (Dextrose 50% Inj) 0 ml IV STAT PRN; Protocol PRN Reason: Hypoglycemia Protocol Dextrose (Glutose 15) 0 gm PO ONCE PRN; Protocol PRN Reason: Hypoglycemia Protocol Enoxaparin Sodium (Lovenox) 40 mg SC DAILY [facility] Last Admin: 06/28/18 09:27 Dose: 40 mg Ergocalciferol (Drisdol 50,000 Intl Units Cap) 1 cap PO Q7D [facility] Stop: 07/20/18 10:01 Escitalopram Oxalate (Lexapro) 10 mg GT DAILY [facility] Last Admin: 06/28/18 09:29 Dose: 10 mg Gentamicin Sulfate (Gentamicin 0.1%) 0 gm TOP TID [facility] Last Admin: 06/28/18 17:52 Dose: 1 oin Glucagon (Glucagen Diagnostic Kit) 0 mg IM STAT PRN; Protocol PRN Reason: Hypoglycemia Protocol Hydrocortisone (Cortizone 1% Cream) 0 gm TOP TID PRN PRN Reason: Rash Hydromorphone HCl (Dilaudid) 1 mg IVP Q3 PRN PRN Reason: Pain, SEVERE (8-10) Last Admin: 06/29/18 07:34 Dose: 1 mg Ferric Sodium Gluconate Complex 125 mg/ Sodium Chloride 110 mls @ 100 mls/hr IVPB Q24H [facility] Stop: 06/29/18 14:31 Last Admin: 06/28/18 16:30 Dose: 100 mls/hr Vancomycin HCl 1,500 mg/ (Sodium Chloride) 500 mls @ 166.6 mls/hr IVPB Q12H [facility] PRN Reason: Protocol Last Admin: 06/29/18 04:28 Dose: 166.6 mls/hr Meropenem 1 gm/ Sodium (Chloride) 100 mls @ 100 mls/hr IVPB Q8H [facility] PRN Reason: Protocol Last Admin: 06/28/18 23:53 Dose: 100 mls/hr Insulin Human Regular (Novolin R) 0 unit SC ACHS [facility] PRN Reason: Protocol Ipratropium [place] (Atrovent) 0.5 mg IH RQ6 [facility] Last Admin: 06/29/18 08:05 Dose: 0.5 mg Lactobacillus Acidophilus (Bacid Acidophilus) 1 cap PEG BID [facility] Last Admin: 06/28/18 17:42 Dose: 1 cap Loperamide HCl (Imodium) 1 mg PO Q2H PRN PRN Reason: Diarrhea Last Admin: 06/28/18 17:42 Dose: 1 mg Lorazepam (Ativan) 1 mg IVP BID [facility] Last Admin: 06/28/18 17:39 Dose: 1 mg Metoprolol Tartrate (Lopressor) 12.5 mg PEG BID [facility] Last Admin: 06/28/18 17:42 Dose: 12.5 mg Nicotine (Nicoderm Cq) 1 patch TD DAILY [facility] Last Admin: 06/28/18 09:28 Dose: 1 patch Ondansetron HCl (Zofran Inj) 4 mg IVP Q6H PRN PRN Reason: Nausea/Vomiting Last Admin: 06/29/18 07:41 Dose: 4 mg Pantoprazole Sodium (Protonix Susp) 40 mg PO Q24H [facility] Last Admin: 06/28/18 09:28 Dose: 40 mg Saliva Substitute (Mouth Kote 236 Ml) 0 ml MM Q6 PRN PRN Reason: Dry mouth Vitamin A (Vitamin A & D Oint Ud Foilpak) 1 ea TOP Q8 PRN PRN Reason: dry lips Vitamin E (Vitamin E 400 Units Cap) 400 intlu GT DAILY [facility] Last Admin: 06/28/18 09:28 Dose: 400 intlu - Labs Labs: 06/28/18 06:45 06/28/18 06:45 PT 14.3 SECONDS (9.7-12.2) H 06/10/18 07:05 INR 1.3 06/10/18 07:05 APTT 33 SECONDS (21-34) 05/25/18 06:16 - Constitutional Appears: Non-toxic, No Acute Distress - Head Exam Head Exam: ATRAUMATIC, NORMOCEPHALIC - Eye Exam Eye Exam: EOMI, Normal appearance, PERRL - ENT Exam ENT Exam: Mucous Membranes Moist - Respiratory Exam Respiratory Exam: Clear to Ausculation Bilateral, NORMAL BREATHING PATTERN - Cardiovascular Exam Cardiovascular Exam: REGULAR RHYTHM, +S1, +S2 - GI/Abdominal Exam GI & Abdominal Exam: Soft, Normal Bowel Sounds. absent: Tenderness Additional comments: Gastrostomy tube in place, c/d/i - Extremities Exam Extremities Exam: Normal Capillary Refill, Normal Inspection. absent: Calf Tenderness, Joint Swelling, Pedal Edema - Neurological Exam Neurological Exam: Alert, Awake, CN II-XII Intact, Oriented x3 - Psychiatric Exam Psychiatric exam: Normal Affect, Normal Mood - Skin Skin Exam: Dry, Intact, Warm Assessment and Plan - Assessment and Plan (Free Text) Assessment: 38F PMHx chronic abd pain, gastric bypass, s/p debridement of bowel x2 for internal hernia, with iron-deficiency anemia. Plan: Iron-deficiency anemia -2/2 malabsorption from gastric bypass surgery -C/w IV iron -Hgb improving this am Further recs as per Dr. Cash, attending. Morris Connolly, DO PGY-1 <Addison Cash - Last Filed: 06/29/18 23:41> Objective - Vital Signs/Intake and Output Vital Signs (last 24 hours): Temp Pulse Resp BP Pulse Ox 98.1 F 106 H 20 115/77 95 06/29/18 15:00 06/29/18 15:00 06/29/18 15:00 06/29/18 15:00 06/29/18 15:00 Intake and Output: 09/19/18 09/20/18 18:59 06:59 Intake Total 150 1100 Output Total 0 50 Balance 150 1050 - Medications Medications: Current Medications Acetaminophen (Tylenol 650mg/20.3ml Solution Ud) 975 mg GT Q8H PRN PRN Reason: Pain, Mild (1-3) Last Admin: 06/25/18 18:42 Dose: 975 mg Calcium Acetate (Phoslo) 667 mg GT TIDCC [facility] Last Admin: 06/29/18 18:29 Dose: 667 mg Cholestyramine Resin (Questran) 4 gm PO BID [facility] Last Admin: 06/29/18 18:31 Dose: 4 gm Dextrose (Dextrose 50% Inj) 0 ml IV STAT PRN; Protocol PRN Reason: Hypoglycemia Protocol Dextrose (Glutose 15) 0 gm PO ONCE PRN; Protocol PRN Reason: Hypoglycemia Protocol Enoxaparin Sodium (Lovenox) 40 mg SC DAILY [facility] Last Admin: 06/29/18 10:31 Dose: 40 mg Ergocalciferol (Drisdol 50,000 Intl Units Cap) 1 cap PO Q7D [facility] Stop: 07/20/18 10:01 Last Admin: 06/29/18 10:46 Dose: 1 cap Escitalopram Oxalate (Lexapro) 10 mg GT DAILY [facility] Last Admin: 06/29/18 10:39 Dose: 10 mg Gentamicin Sulfate (Gentamicin 0.1%) 0 gm TOP TID [facility] Last Admin: 06/29/18 18:35 Dose: 1 oin Glucagon (Glucagen Diagnostic Kit) 0 mg IM STAT PRN; Protocol PRN Reason: Hypoglycemia Protocol Hydrocortisone (Cortizone 1% Cream) 0 gm TOP TID PRN PRN Reason: Rash Hydromorphone HCl (Dilaudid) 1 mg IVP Q3 PRN PRN Reason: Pain, SEVERE (8-10) Last Admin: 06/29/18 22:57 Dose: 1 mg Vancomycin HCl 1,500 mg/ (Sodium Chloride) 500 mls @ 166.6 mls/hr IVPB Q12H [facility] PRN Reason: Protocol Last Admin: 06/29/18 18:31 Dose: 166.6 mls/hr Meropenem 1 gm/ Sodium (Chloride) 100 mls @ 100 mls/hr IVPB Q8H [facility] PRN Reason: Protocol Last Admin: 06/29/18 18:31 Dose: 100 mls/hr Insulin Human Regular (Novolin R) 0 unit SC ACHS [facility] PRN Reason: Protocol Last Admin: 06/29/18 22:50 Dose: Not Given Ipratropium [place] (Atrovent) 0.5 mg IH RQ6 [facility] Last Admin: 06/29/18 13:26 Dose: Not Given Lactobacillus Acidophilus (Bacid Acidophilus) 1 cap PEG BID [facility] Last Admin: 06/29/18 19:56 Dose: 1 cap Loperamide HCl (Imodium) 1 mg PO Q2H PRN PRN Reason: Diarrhea Last Admin: 06/29/18 18:34 Dose: 1 mg Lorazepam (Ativan) 1 mg IVP BID [facility] Last Admin: 06/29/18 18:29 Dose: 1 mg Metoprolol Tartrate (Lopressor) 12.5 mg PEG BID [facility] Last Admin: 06/29/18 18:29 Dose: 12.5 mg Nicotine (Nicoderm Cq) 1 patch TD DAILY [facility] Last Admin: 06/29/18 10:29 Dose: 1 patch Ondansetron HCl (Zofran Inj) 4 mg IVP Q6H PRN PRN Reason: Nausea/Vomiting Last Admin: 06/29/18 07:41 Dose: 4 mg Pantoprazole Sodium (Protonix Susp) 40 mg PO Q24H [facility] Last Admin: 06/29/18 10:50 Dose: 40 mg Saliva Substitute (Mouth Kote 236 Ml) 0 ml MM Q6 PRN PRN Reason: Dry mouth Vitamin A (Vitamin A & D Oint Ud Foilpak) 1 ea TOP Q8 PRN PRN Reason: dry lips Vitamin E (Vitamin E 400 Units Cap) 400 intlu GT DAILY [facility] Last Admin: 06/29/18 10:52 Dose: 400 intlu - Labs Labs: 06/28/18 06:45 06/28/18 06:45 PT 14.3 SECONDS (9.7-12.2) H 06/10/18 07:05 INR 1.3 06/10/18 07:05 APTT 33 SECONDS (21-34) 05/25/18 06:16 Assessment and Plan (1) Iron deficiency anemia Status: Acute - Assessment and Plan (Free Text) Plan: Pt seen and examined, agree with residents note.
--- NOTE | 2018-06-29 09:30 | CP.PCM.PN ---
<Esther Angulo - Last Filed: 06/29/18 14:19> Subjective - Date & Time of Evaluation Date of Evaluation: 06/29/18 Time of Evaluation: 09:29 - Subjective Subjective: PGY-1 Medicine Progress note for Dr. Denise Patient was seen and examined today at bedside in no acute distress. Nurse reports no overnight events. Patient complains of difficulty sleeping due to construction noises and flipped sleeping schedule. The wound vac was replaced and still drained 200ml in the last 24 hours. The NGT still suctioned about 500ml of clear fluid, likely water/ice chips, in the last 24 hours. Patient was able to get out of bed and walk around the floor. She had 3 loose bowel movements today. Denies chest pain, shortness of breath, sore throat, dizziness, headache, numbness, weakness, cough, wheezing, fever, chills. Objective - Vital Signs/Intake and Output Vital Signs (last 24 hours): Temp Pulse Resp BP Pulse Ox 98.1 F 92 H 18 121/81 95 06/29/18 07:00 06/29/18 07:00 06/29/18 07:00 06/29/18 07:00 06/29/18 07:00 Intake and Output: 06/29/18 06/29/18 06:59 18:59 Intake Total 1100 Output Total 325 Balance 775 - Medications Medications: Current Medications Acetaminophen (Tylenol 650mg/20.3ml Solution Ud) 975 mg GT Q8H PRN PRN Reason: Pain, Mild (1-3) Last Admin: 06/25/18 18:42 Dose: 975 mg Calcium Acetate (Phoslo) 667 mg GT TIDCC [facility] Last Admin: 06/29/18 07:36 Dose: 667 mg Cholestyramine Resin (Questran) 4 gm PO BID [facility] Last Admin: 06/28/18 17:43 Dose: 4 gm Dextrose (Dextrose 50% Inj) 0 ml IV STAT PRN; Protocol PRN Reason: Hypoglycemia Protocol Dextrose (Glutose 15) 0 gm PO ONCE PRN; Protocol PRN Reason: Hypoglycemia Protocol Enoxaparin Sodium (Lovenox) 40 mg SC DAILY [facility] Last Admin: 06/28/18 09:27 Dose: 40 mg Ergocalciferol (Drisdol 50,000 Intl Units Cap) 1 cap PO Q7D [facility] Stop: 07/20/18 10:01 Escitalopram Oxalate (Lexapro) 10 mg GT DAILY [facility] Last Admin: 06/28/18 09:29 Dose: 10 mg Gentamicin Sulfate (Gentamicin 0.1%) 0 gm TOP TID [facility] Last Admin: 06/28/18 17:52 Dose: 1 oin Glucagon (Glucagen Diagnostic Kit) 0 mg IM STAT PRN; Protocol PRN Reason: Hypoglycemia Protocol Hydrocortisone (Cortizone 1% Cream) 0 gm TOP TID PRN PRN Reason: Rash Hydromorphone HCl (Dilaudid) 1 mg IVP Q3 PRN PRN Reason: Pain, SEVERE (8-10) Last Admin: 06/29/18 07:34 Dose: 1 mg Ferric Sodium Gluconate Complex 125 mg/ Sodium Chloride 110 mls @ 100 mls/hr IVPB Q24H [facility] Stop: 06/29/18 14:31 Last Admin: 06/28/18 16:30 Dose: 100 mls/hr Vancomycin HCl 1,500 mg/ (Sodium Chloride) 500 mls @ 166.6 mls/hr IVPB Q12H [facility] PRN Reason: Protocol Last Admin: 06/29/18 04:28 Dose: 166.6 mls/hr Meropenem 1 gm/ Sodium (Chloride) 100 mls @ 100 mls/hr IVPB Q8H [facility] PRN Reason: Protocol Last Admin: 06/28/18 23:53 Dose: 100 mls/hr Insulin Human Regular (Novolin R) 0 unit SC ACHS [facility] PRN Reason: Protocol Ipratropium [place] (Atrovent) 0.5 mg IH RQ6 [facility] Last Admin: 06/29/18 08:05 Dose: 0.5 mg Lactobacillus Acidophilus (Bacid Acidophilus) 1 cap PEG BID [facility] Last Admin: 06/28/18 17:42 Dose: 1 cap Loperamide HCl (Imodium) 1 mg PO Q2H PRN PRN Reason: Diarrhea Last Admin: 06/28/18 17:42 Dose: 1 mg Lorazepam (Ativan) 1 mg IVP BID [facility] Last Admin: 06/28/18 17:39 Dose: 1 mg Metoprolol Tartrate (Lopressor) 12.5 mg PEG BID [facility] Last Admin: 06/28/18 17:42 Dose: 12.5 mg Nicotine (Nicoderm Cq) 1 patch TD DAILY [facility] Last Admin: 06/28/18 09:28 Dose: 1 patch Ondansetron HCl (Zofran Inj) 4 mg IVP Q6H PRN PRN Reason: Nausea/Vomiting Last Admin: 06/29/18 07:41 Dose: 4 mg Pantoprazole Sodium (Protonix Susp) 40 mg PO Q24H [facility] Last Admin: 06/28/18 09:28 Dose: 40 mg Saliva Substitute (Mouth Kote 236 Ml) 0 ml MM Q6 PRN PRN Reason: Dry mouth Vitamin A (Vitamin A & D Oint Ud Foilpak) 1 ea TOP Q8 PRN PRN Reason: dry lips Vitamin E (Vitamin E 400 Units Cap) 400 intlu GT DAILY [facility] Last Admin: 06/28/18 09:28 Dose: 400 intlu - Labs Labs: 06/28/18 06:45 06/28/18 06:45 PT 14.3 SECONDS (9.7-12.2) H 06/10/18 07:05 INR 1.3 06/10/18 07:05 APTT 33 SECONDS (21-34) 05/25/18 06:16 - Additional Findings Additional findings: - Constitutional Appears: Non-toxic, No Acute Distress, Chronically Ill - Head Exam Head Exam: ATRAUMATIC, NORMOCEPHALIC - Eye Exam Eye Exam: EOMI, Normal appearance - ENT Exam ENT Exam: Mucous Membranes Moist, Normal Exam - Respiratory Exam Respiratory Exam: Clear to Ausculation Bilateral, NORMAL BREATHING PATTERN. absent: Rales, Rhonchi, Wheezes - Cardiovascular Exam Cardiovascular Exam: REGULAR RHYTHM, +S1, +S2. absent: Murmur - GI/Abdominal Exam GI & Abdominal Exam: Soft, Normal Bowel Sounds. absent: Firm, Guarding, Rigid, Tenderness Additional comments: wound vac in place, Gtube in place both dressings c/d/i - Extremities Exam Extremities Exam: Full ROM, Normal Capillary Refill, Normal Inspection Additional comments: peripheral pulses palpable (radial, PT, DP) R PICC in place - Neurological Exam Neurological Exam: Alert, Awake, Normal Gait, Oriented x3 - Skin Skin Exam: Dry, Intact, Normal Color Assessment and Plan - Assessment and Plan (Free Text) Assessment: 38F with a PMH of HTN, HLD, DM2, asthma s/p bowel resection (05/14, 05/16) 2/2 internal hernia s/p [id number] gastric bypass in 2014 admitted for medical optimization prior to reversal of bypass. 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 Harley (surgery) on the case - Wound vac to continuous suction - replaced on 06/22 by surgery - Dr. Cash ([facility]) consulted for Fe status - appreciated recommendations * Iron 17, TIBC 238, % sat 7, ferritin 14.5, retic 3.2 Other cultures: New (06/22/18): abdominal incision: Pseudomonas Aeruginosa sensitive to Meropenem New (06/22/18): Peg site: Pseudomonas Aeruginosa sensitive to Meropenem Peritoneal Fluid (05/14/18): Pseudomonas Aeruginosa sensitive to Meropenem Wound Culture (05/23/18): Yudith Albicans Blood Culture (05/15/18, 05/22/18): no growth Urine Culture (05/22/18): no growth Incision Site (05/31/18): Enterococcus faecalis, Acinetobacter baumannii Stool Cultures (06/03/18): No salmonella, shigella, or campylobacteria isolates Repeat wound culture (06/13/18): Coag neg Staph, enterococcus raffinosus Antibiotics: Continue Vancomycin 1gm IV Q12Hr (started 06/16 @ 12pm), goal vanc trough 15-20 Discontinued Cipro 400 mg IV q12hrs (started 06/02, last day 06/16/18) Completed Flagyl 500mg IVPB q8hrs (active since 05/15/18-06/19/18) Measure vitamin levels and replace as needed: Vit D <12.8- vid D 50,000 unites q1wk x8 wks B12 707, wnl Folate 12.6, wnl Vit A 42, wnl Alpha Vit E 5.6, wnl Vit A, B1, B6, E levels reordered on 06/15. - VitB1: inappropriately submitted, 06/01 value acceptable - VitB6: 5.9, wnl - Tabitha, E collected Medication: Continue Tylenol 975 mg liq q8hrs Continue Dilaudad 1mg IV q3hrs PRN Continue Zofran 4mg IV q6hrs PRN Tachycardia, persistent (110s-130s)- possibly etiologies include pain, infection , anxiety -She is being treated for Left G Tube fluid infection. -Continue Ativan PRN -Continue Dilaudid on board to be used PRN. -Continue Metoprolol tartrate 5mg IV q6hrs with holding parameters (SBP <100, HR <60) Diarrhea, acute, improving- suspect secondary to PO intake by pt -C.Diff (05/22, 05/24, 05/28): negative -Stool O&P (05/25/18): negative -Stool leukocytes (05/25/18): negative -per ID continue Flagyl due to leak around wound vac -Imodium 1mg PO Q2H PRN Anxiety -[facility] consulted- pt initially refused but then accepted -Psychiatry consulted (Dr. Reyez)- managing Ativan -Continue Ativan 1mg IV BID -Continue Lexapro 10mg GT daily (started 05/31) Insomnia - Discontinue, Benadryl 25 mg IVP HS PRN, clinically not indicated Anemia, acute, stable, pt denies blood in stool -Patient received a total of 2 PRBC (on 05/16) and 4 FFP (on 05/15 and 05/16) -Iron 16, TIBC 205, %sat 4.7, ferritin 75.3 -Monitor CBC Q2D Thrombocytosis, improving (504)- suspect reactive to pain, surgery- Resolved -Monitory CBC Q2D Diabetes Mellitus, Type 2- controlled -From prior note: Admittedly non-compliant, has not taken Januvia for one year -Accuchecks q6hrs -Hypoglycemic protocol -ISS regular -HbA1c 5.8 -History of gastric bypass surgery Hypercholesterolemia- untreated - LDL <30, HDL 23, Chol 59, TG 195 (06/03/18) - History of gastric bypass surgery - Questran 4gm PO BID History of Hypertension, controlled - Since gastric bypass has not taken meds - Metoprolol 5mg IV q6hrs History of Asthma- Chronic - Atrovent q6hrs Nicotine use disorder- Chronic - From prior note: 1ppd x 20 yrs, 1/2ppd x3 yrs - Continue Nicoderm 1 patch TD QD Electrolyte Imbalance: hypokalemia, hypomagnesemia - resolved - Continue to monitor with AM labs, replete as needed Prophylaxis -Hydrocortisone 1% Cream topical TID for Right Upper Inner Arm macular rash- improved -Vitamin A&D topical q8hrs PRN for dry lips -Saliva substitute q6hrs PRN for dry mouth -IVF: not indicated -VTE ppx: Lovenox 40mg SC daily, SCDs; encourage ambulation -GI ppx: Protonix 40mg IV BID, Florastor BID -Code status: full code Dispo: PT consulted- working with patient daily, rec home PT with services. Will stay at [facility] until bypass reversal surgery. Pending Dr. Mccray recs. d/w Dr. Howie Angulo PGY1 <Franki Denise - Last Filed: 06/29/18 18:59> Objective - Vital Signs/Intake and Output Vital Signs (last 24 hours): Temp Pulse Resp BP Pulse Ox 98.1 F 106 H 20 115/77 95 06/29/18 15:00 06/29/18 15:00 06/29/18 15:00 06/29/18 15:00 06/29/18 15:00 Intake and Output: 06/29/18 06/29/18 06:59 18:59 Intake Total 1100 150 Output Total 325 0 Balance 775 150 - Medications Medications: Current Medications Acetaminophen (Tylenol 650mg/20.3ml Solution Ud) 975 mg GT Q8H PRN PRN Reason: Pain, Mild (1-3) Last Admin: 06/25/18 18:42 Dose: 975 mg Calcium Acetate (Phoslo) 667 mg GT TIDCC [facility] Last Admin: 06/29/18 18:29 Dose: 667 mg Cholestyramine Resin (Questran) 4 gm PO BID [facility] Last Admin: 06/29/18 18:31 Dose: 4 gm Dextrose (Dextrose 50% Inj) 0 ml IV STAT PRN; Protocol PRN Reason: Hypoglycemia Protocol Dextrose (Glutose 15) 0 gm PO ONCE PRN; Protocol PRN Reason: Hypoglycemia Protocol Enoxaparin Sodium (Lovenox) 40 mg SC DAILY [facility] Last Admin: 06/29/18 10:31 Dose: 40 mg Ergocalciferol (Drisdol 50,000 Intl Units Cap) 1 cap PO Q7D [facility] Stop: 07/20/18 10:01 Last Admin: 06/29/18 10:46 Dose: 1 cap Escitalopram Oxalate (Lexapro) 10 mg GT DAILY [facility] Last Admin: 06/29/18 10:39 Dose: 10 mg Gentamicin Sulfate (Gentamicin 0.1%) 0 gm TOP TID [facility] Last Admin: 06/29/18 18:35 Dose: 1 oin Glucagon (Glucagen Diagnostic Kit) 0 mg IM STAT PRN; Protocol PRN Reason: Hypoglycemia Protocol Hydrocortisone (Cortizone 1% Cream) 0 gm TOP TID PRN PRN Reason: Rash Hydromorphone HCl (Dilaudid) 1 mg IVP Q3 PRN PRN Reason: Pain, SEVERE (8-10) Last Admin: 06/29/18 16:56 Dose: 1 mg Vancomycin HCl 1,500 mg/ (Sodium Chloride) 500 mls @ 166.6 mls/hr IVPB Q12H [facility] PRN Reason: Protocol Last Admin: 06/29/18 18:31 Dose: 166.6 mls/hr Meropenem 1 gm/ Sodium (Chloride) 100 mls @ 100 mls/hr IVPB Q8H [facility] PRN Reason: Protocol Last Admin: 06/29/18 18:31 Dose: 100 mls/hr Insulin Human Regular (Novolin R) 0 unit SC ACHS [facility] PRN Reason: Protocol Last Admin: 06/29/18 18:29 Dose: Not Given Ipratropium [place] (Atrovent) 0.5 mg IH RQ6 [facility] Last Admin: 06/29/18 13:26 Dose: Not Given Lactobacillus Acidophilus (Bacid Acidophilus) 1 cap PEG BID [facility] Last Admin: 06/29/18 10:40 Dose: 1 cap Loperamide HCl (Imodium) 1 mg PO Q2H PRN PRN Reason: Diarrhea Last Admin: 06/29/18 18:34 Dose: 1 mg Lorazepam (Ativan) 1 mg IVP BID [facility] Last Admin: 06/29/18 18:29 Dose: 1 mg Metoprolol Tartrate (Lopressor) 12.5 mg PEG BID [facility] Last Admin: 06/29/18 18:29 Dose: 12.5 mg Nicotine (Nicoderm Cq) 1 patch TD DAILY [facility] Last Admin: 06/29/18 10:29 Dose: 1 patch Ondansetron HCl (Zofran Inj) 4 mg IVP Q6H PRN PRN Reason: Nausea/Vomiting Last Admin: 06/29/18 07:41 Dose: 4 mg Pantoprazole Sodium (Protonix Susp) 40 mg PO Q24H [facility] Last Admin: 06/29/18 10:50 Dose: 40 mg Saliva Substitute (Mouth Kote 236 Ml) 0 ml MM Q6 PRN PRN Reason: Dry mouth Vitamin A (Vitamin A & D Oint Ud Foilpak) 1 ea TOP Q8 PRN PRN Reason: dry lips Vitamin E (Vitamin E 400 Units Cap) 400 intlu GT DAILY [facility] Last Admin: 06/29/18 10:52 Dose: 400 intlu - Labs Labs: 06/28/18 06:45 06/28/18 06:45 PT 14.3 SECONDS (9.7-12.2) H 06/10/18 07:05 INR 1.3 06/10/18 07:05 APTT 33 SECONDS (21-34) 05/25/18 06:16 Attending/Attestation - Attestation I have personally seen and examined this patient.: Yes I have fully participated in the care of the patient.: Yes I have reviewed all pertinent clinical information, including history, physical exam and plan: Yes Notes (Text): 06/29/18 18:57 Patient was seen and examined at 9:45 AM 06/29/18 Care of this patient was gone over with the resident. Please note that the patient is also on Meropenem 500 mg IV Q8H in addition to the Vancomycin 1.5 gm IV Q12H to treat the surgical wound site positive cultures Wound Vac to be changed by Surgery Team on 06/30/18. Franki Denise D.O.
[2018-06-29] MEDS: Enoxaparin 40 mg Syringe SC SCH (10:31)
[2018-06-29] MEDS: Loperamide Hydrochloride 1 mg/5 ml Cup PO PRN ×2 (10:33→18:34)
[2018-06-29] MEDS: Lactobacillus Acidophilus 500 MU Cap PEG SCH ×2 (10:40→19:56)
[2018-06-29] MEDS: Ergocalciferol 50,000 Intl Units Cap PO SCH (10:46)
[2018-06-29] MEDS: GENTAMICIN 0.1% TOP SCH ×3 (10:48→18:35)
[2018-06-29] MEDS: Pantoprazole 40 mg Susp UD PO SCH (10:50)
[2018-06-29] MEDS: Cholestyramine 4 gm/Pkt UD PO SCH ×2 (10:50→18:31)
[2018-06-29] MEDS: Ferric Sodium Gluconat Complex 125 MG in Sodium Chloride 0.9% 100 ML IVPB SCH (14:00)
[2018-06-30] MEDS: Meropenem 1 GM in Sodium Chloride 0.9% 100 ML IVPB SCH ×4 (00:30→23:57)
[2018-06-30] MEDS: Ipratropium 0.02% Inhal Soln (0.5 mg/2.5 ml) UD IH SCH ×4 (01:17→19:16)
[2018-06-30 06:52] LABS: BASO # 0.1 K/uL (0.0-0.2); BASO % 0.9 % (0.0-2.0); EOS # 0.5 K/uL (0.0-0.7); EOS % 6.7 % (0.0-4.0); LYMPH % 24.8 % (20.0-40.0); MEAN CELL VOLUME 88.8 fL (81.0-99.0); MEAN CORPUSCULAR HEMOGLOBIN 29.2 pg (27.0-31.0); MEAN CORPUSCULAR HGB CONC 32.9 g/dL (33.0-37.0); MEAN PLATELET VOLUME 7.3 fL (7.2-11.7); MONO # 0.6 K/uL (0.0-0.8); NEUT # 4.8 K/uL (1.8-7.0); NEUT % 60.6 % (50.0-75.0); NRBC % 0.2 % (0.0-2.0); RBC 3.07 Mil/uL (3.80-5.20); RED CELL DISTRIBUTION WIDTH 19.7 % (11.5-14.5); WHITE BLOOD COUNT 7.9 K/uL (4.8-10.8)
--- NOTE | 2018-06-30 07:17 | CP.PCM.PN ---
<Esther Angulo - Last Filed: 06/30/18 17:31> Subjective - Date & Time of Evaluation Date of Evaluation: 06/30/18 Time of Evaluation: 07:11 - Subjective Subjective: PGY-1 Medicine Progress note for Dr. Denise Patient was seen and examined today at bedside in no acute distress. Nurse reports no overnight events. Patient complains of difficulty sleeping due to construction noises and flipped sleeping schedule. The wound vac was replaced, and clean. last The NGT still suctioned 350cc of clear fluid, likely water/ice chips, in the last 24 hours. Patient was able to get out of bed and walk around the floor with friend who was visiting. wound vac replaced today by surgical team. Patient has no other complaints. She had 2 bowel movements with loose watery stool today. Denies chest pain, shortness of breath, sore throat, dizziness, headache, numbness, weakness, cough, wheezing, fever, chills. Objective - Vital Signs/Intake and Output Vital Signs (last 24 hours): Temp Pulse Resp BP Pulse Ox 98.7 F 96 H 20 109/76 95 06/29/18 23:15 06/29/18 23:15 06/29/18 23:15 06/29/18 23:15 06/29/18 23:15 Intake and Output: 06/30/18 06/30/18 06:59 18:59 Intake Total 2100 Output Total 225 Balance 1875 - Medications Medications: Current Medications Acetaminophen (Tylenol 650mg/20.3ml Solution Ud) 975 mg GT Q8H PRN PRN Reason: Pain, Mild (1-3) Last Admin: 06/25/18 18:42 Dose: 975 mg Calcium Acetate (Phoslo) 667 mg GT TIDCC [facility] Last Admin: 06/29/18 18:29 Dose: 667 mg Cholestyramine Resin (Questran) 4 gm PO BID [facility] [place] Last Admin: 06/29/18 18:31 Dose: 4 gm Dextrose (Dextrose 50% Inj) 0 ml IV STAT PRN; Protocol PRN Reason: Hypoglycemia Protocol Dextrose (Glutose 15) 0 gm PO ONCE PRN; Protocol PRN Reason: Hypoglycemia Protocol Enoxaparin Sodium (Lovenox) 40 mg SC DAILY [facility] Last Admin: 06/29/18 10:31 Dose: 40 mg Ergocalciferol (Drisdol 50,000 Intl Units Cap) 1 cap PO Q7D [facility] [place] Stop: 07/20/18 10:01 Last Admin: 06/29/18 10:46 Dose: 1 cap Escitalopram Oxalate (Lexapro) 10 mg GT DAILY [facility] [place] Last Admin: 06/29/18 10:39 Dose: 10 mg Gentamicin Sulfate (Gentamicin 0.1%) 0 gm TOP TID [facility] [place] Last Admin: 06/29/18 18:35 Dose: 1 oin Glucagon (Glucagen Diagnostic Kit) 0 mg IM STAT PRN; Protocol PRN Reason: Hypoglycemia Protocol Hydrocortisone (Cortizone 1% Cream) 0 gm TOP TID PRN PRN Reason: Rash Hydromorphone HCl (Dilaudid) 1 mg IVP Q3 PRN PRN Reason: Pain, SEVERE (8-10) Last Admin: 06/30/18 05:10 Dose: 1 mg Vancomycin HCl 1,500 mg/ (Sodium Chloride) 500 mls @ 166.6 mls/hr IVPB Q12H [facility] PRN Reason: Protocol Last Admin: 06/30/18 05:13 Dose: 166.6 mls/hr Meropenem 1 gm/ Sodium (Chloride) 100 mls @ 100 mls/hr IVPB Q8H [facility] PRN Reason: Protocol Last Admin: 06/30/18 00:30 Dose: 100 mls/hr Insulin Human Regular (Novolin R) 0 unit SC ACHS [facility] PRN Reason: Protocol Last Admin: 06/29/18 22:50 Dose: Not Given Ipratropium [place] (Atrovent) 0.5 mg IH RQ6 [facility] [place] Last Admin: 06/30/18 01:17 Dose: Not Given Lactobacillus Acidophilus (Bacid Acidophilus) 1 cap PEG BID [facility] Last Admin: 06/29/18 19:56 Dose: 1 cap Loperamide HCl (Imodium) 1 mg PO Q2H PRN PRN Reason: Diarrhea Last Admin: 06/29/18 18:34 Dose: 1 mg Lorazepam (Ativan) 1 mg IVP BID [facility] [place] Last Admin: 06/29/18 18:29 Dose: 1 mg Metoprolol Tartrate (Lopressor) 12.5 mg PEG BID [facility] [place] Last Admin: 06/29/18 18:29 Dose: 12.5 mg Nicotine (Nicoderm Cq) 1 patch TD DAILY [facility] Last Admin: 06/29/18 10:29 Dose: 1 patch Ondansetron HCl (Zofran Inj) 4 mg IVP Q6H PRN PRN Reason: Nausea/Vomiting Last Admin: 06/29/18 07:41 Dose: 4 mg Pantoprazole Sodium (Protonix Susp) 40 mg PO Q24H [facility] Last Admin: 06/29/18 10:50 Dose: 40 mg Saliva Substitute (Mouth Kote 236 Ml) 0 ml MM Q6 PRN PRN Reason: Dry mouth Vitamin A (Vitamin A & D Oint Ud Foilpak) 1 ea TOP Q8 PRN PRN Reason: dry lips Vitamin E (Vitamin E 400 Units Cap) 400 intlu GT DAILY [facility] Last Admin: 06/29/18 10:52 Dose: 400 intlu - Labs Labs: 06/30/18 06:33 06/28/18 06:45 PT 14.3 SECONDS (9.7-12.2) H 06/10/18 07:05 INR 1.3 06/10/18 07:05 APTT 33 SECONDS (21-34) 05/25/18 06:16 - Additional Findings Additional findings: - Constitutional Appears: Non-toxic, No Acute Distress, Chronically Ill - Head Exam Head Exam: ATRAUMATIC, NORMOCEPHALIC - Eye Exam Eye Exam: EOMI, Normal appearance - ENT Exam ENT Exam: Mucous Membranes Moist, Normal Exam - Respiratory Exam Respiratory Exam: Clear to Ausculation Bilateral, NORMAL BREATHING PATTERN. absent: Rales, Rhonchi, Wheezes - Cardiovascular Exam Cardiovascular Exam: REGULAR RHYTHM, +S1, +S2. absent: Murmur - GI/Abdominal Exam GI & Abdominal Exam: Soft, Normal Bowel Sounds. absent: Firm, Guarding, Rigid, Tenderness Additional comments: wound vac in place, Gtube in place both dressings c/d/i - Extremities Exam Extremities Exam: Full ROM, Normal Capillary Refill, Normal Inspection Additional comments: peripheral pulses palpable (radial, PT, DP) R PICC in place - Neurological Exam Neurological Exam: Alert, Awake, Normal Gait, Oriented x3 - Skin Skin Exam: Dry, Intact, Normal Color Assessment and Plan - Assessment and Plan (Free Text) Assessment: 38F with a PMH of HTN, HLD, DM2, asthma s/p bowel resection (05/14, 05/16) 2/2 internal hernia s/p [id number] gastric bypass in 2014 admitted for medical optimization prior to reversal of bypass. 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 Harley (surgery) on the case - Wound vac to continuous suction - replaced on 06/22 by surgery - Dr. Cash ([facility] onc) consulted for Fe status - appreciated recommendations * Iron 17, TIBC 238, % sat 7, ferritin 14.5, retic 3.2 Other cultures: New (06/22/18): abdominal incision: Pseudomonas Aeruginosa sensitive to Meropenem New (06/22/18): Peg site: Pseudomonas Aeruginosa sensitive to Meropenem Peritoneal Fluid (05/14/18): Pseudomonas Aeruginosa sensitive to Meropenem Wound Culture (05/23/18): Yudith Albicans Blood Culture (05/15/18, 05/22/18): no growth Urine Culture (05/22/18): no growth Incision Site (05/31/18): Enterococcus faecalis, Acinetobacter baumannii Stool Cultures (06/03/18): No salmonella, shigella, or campylobacteria isolates Repeat wound culture (06/13/18): Coag neg Staph, enterococcus raffinosus Antibiotics: Continue Vancomycin 1gm IV Q12Hr (started 06/16 @ 12pm), goal vanc trough 15-20 Discontinued Cipro 400 mg IV q12hrs (started 06/02, last day 06/16/18) Completed Flagyl 500mg IVPB q8hrs (active since 05/15/18-06/19/18) Measure vitamin levels and replace as needed: Vit D <12.8- vid D 50,000 unites q1wk x8 wks B12 707, wnl Folate 12.6, wnl Vit A 42, wnl Alpha Vit E 5.6, wnl Vit A, B1, B6, E levels reordered on 06/15. - VitB1: inappropriately submitted, 06/01 value acceptable - VitB6: 5.9, wnl - Tabitha, E collected Medication: Continue Tylenol 975 mg liq q8hrs Continue Dilaudad 1mg IV q3hrs PRN Continue Zofran 4mg IV q6hrs PRN Tachycardia, persistent (110s-130s)- possibly etiologies include pain, infection , anxiety -She is being treated for Left G Tube fluid infection. -Continue Ativan PRN -Continue Dilaudid on board to be used PRN. -Continue Metoprolol tartrate 5mg IV q6hrs with holding parameters (SBP <100, HR <60) Diarrhea, acute, improving- suspect secondary to PO intake by pt -C.Diff (05/22, 05/24, 05/28): negative -Stool O&P (05/25/18): negative -Stool leukocytes (05/25/18): negative -per ID continue Flagyl due to leak around wound vac -Imodium 1mg PO Q2H PRN Anxiety -[employer] consulted- pt initially refused but then accepted -Psychiatry consulted (Dr. Reyez)- managing Ativan -Continue Ativan 1mg IV BID -Continue Lexapro 10mg GT daily (started 05/31) Insomnia - Discontinue, Benadryl 25 mg IVP HS PRN, clinically not indicated Anemia, acute, stable, pt denies blood in stool -Patient received a total of 2 PRBC (on 05/16) and 4 FFP (on 05/15 and 05/16) -Iron 16, TIBC 205, %sat 4.7, ferritin 75.3 -Monitor CBC Q2D Thrombocytosis, improving (504)- suspect reactive to pain, surgery- Resolved -Monitory CBC Q2D Diabetes Mellitus, Type 2- controlled -From prior note: Admittedly non-compliant, has not taken Januvia for one year -Accuchecks q6hrs -Hypoglycemic protocol -ISS regular -HbA1c 5.8 -History of gastric bypass surgery Hypercholesterolemia- untreated - LDL <30, HDL 23, Chol 59, TG 195 (06/03/18) - History of gastric bypass surgery - Questran 4gm PO BID History of Hypertension, controlled - Since gastric bypass has not taken meds - Metoprolol 5mg IV q6hrs History of Asthma- Chronic - Atrovent q6hrs Nicotine use disorder- Chronic - From prior note: 1ppd x 20 yrs, 1/2ppd x3 yrs - Continue Nicoderm 1 patch TD QD Electrolyte Imbalance: hypokalemia, hypomagnesemia - resolved - Continue to monitor with AM labs, replete as needed Prophylaxis -Hydrocortisone 1% Cream topical TID for Right Upper Inner Arm macular rash- improved -Vitamin A&D topical q8hrs PRN for dry lips -Saliva substitute q6hrs PRN for dry mouth -IVF: not indicated -VTE ppx: Lovenox 40mg SC daily, SCDs; encourage ambulation -GI ppx: Protonix 40mg IV BID, Florastor BID -Code status: full code Dispo: PT consulted- working with patient daily, rec home PT with services. Will stay at [facility] until bypass reversal surgery. Pending Dr. Mccray recs. d/w Dr. Howie Angulo PGY1 <Franki Denise - Last Filed: 07/01/18 21:06> Objective - Vital Signs/Intake and Output Vital Signs (last 24 hours): Temp Pulse Resp BP Pulse Ox 99 F 95 H 18 119/80 95 07/01/18 15:48 07/01/18 15:48 07/01/18 15:48 07/01/18 15:48 07/01/18 15:48 Intake and Output: 07/01/1818 18:59 06:59 Intake Total 443 Output Total 185 Balance 258 - Medications Medications: Current Medications Acetaminophen (Tylenol 650mg/20.3ml Solution Ud) 975 mg GT Q8H PRN PRN Reason: Pain, Mild (1-3) Calcium Acetate (Phoslo) 667 mg GT TIDCC [facility] [place] Last Admin: 07/01/18 18:19 Dose: 667 mg Cholestyramine Resin (Questran) 4 gm PO BID [facility] [place] Last Admin: 07/01/18 18:21 Dose: 4 gm Dextrose (Dextrose 50% Inj) 0 ml IV STAT PRN; Protocol PRN Reason: Hypoglycemia Protocol Dextrose (Glutose 15) 0 gm PO ONCE PRN; Protocol PRN Reason: Hypoglycemia Protocol Enoxaparin Sodium (Lovenox) 40 mg SC DAILY [facility] [place] Last Admin: 07/01/18 10:11 Dose: 40 mg Ergocalciferol (Drisdol 50,000 Intl Units Cap) 1 cap PO Q7D [facility] [place] Stop: 07/20/18 10:01 Last Admin: 06/29/18 10:46 Dose: 1 cap Escitalopram Oxalate (Lexapro) 10 mg GT DAILY [facility] Last Admin: 07/01/18 10:10 Dose: 10 mg Gentamicin Sulfate (Gentamicin 0.1%) 0 gm TOP TID [facility] [place] Last Admin: 07/01/18 18:22 Dose: 1 oin Glucagon (Glucagen Diagnostic Kit) 0 mg IM STAT PRN; Protocol PRN Reason: Hypoglycemia Protocol Hydrocortisone (Cortizone 1% Cream) 0 gm TOP TID PRN PRN Reason: Rash Hydromorphone HCl (Dilaudid) 1 mg IVP Q3 PRN PRN Reason: Pain, SEVERE (8-10) Last Admin: 07/01/18 20:46 Dose: 1 mg Vancomycin HCl 1,500 mg/ (Sodium Chloride) 500 mls @ 166.6 mls/hr IVPB Q12H [facility] [place] PRN Reason: Protocol Last Admin: 07/01/18 18:22 Dose: 166.6 mls/hr Meropenem 1 gm/ Sodium (Chloride) 100 mls @ 100 mls/hr IVPB Q8H [facility] PRN Reason: Protocol Last Admin: 07/01/18 14:44 Dose: 100 mls/hr Insulin Human Regular (Novolin R) 0 unit SC ACHS [facility] [place] PRN Reason: Protocol Last Admin: 07/01/18 18:20 Dose: Not Given Ipratropium [place] (Atrovent) 0.5 mg IH RQ6 [facility] Last Admin: 07/01/18 19:31 Dose: 0.5 mg Lactobacillus Acidophilus (Bacid Acidophilus) 1 cap PEG BID [facility] [place] Last Admin: 07/01/18 18:19 Dose: 1 cap Loperamide HCl (Imodium) 1 mg PO Q2H PRN PRN Reason: Diarrhea Last Admin: 07/01/18 18:31 Dose: 1 mg Lorazepam (Ativan) 1 mg IVP BID [facility] [place] Last Admin: 07/01/18 18:19 Dose: 1 mg Metoprolol Tartrate (Lopressor) 12.5 mg PEG BID [facility] [place] Last Admin: 07/01/18 18:19 Dose: 12.5 mg Nicotine (Nicoderm Cq) 1 patch TD DAILY [facility] [place] [place] Last Admin: 07/01/18 10:13 Dose: 1 patch Ondansetron HCl (Zofran Inj) 4 mg IVP Q6H PRN PRN Reason: Nausea/Vomiting Last Admin: 06/30/18 20:42 Dose: 4 mg Pantoprazole Sodium (Protonix Susp) 40 mg PO DAILY [facility] Last Admin: 07/01/18 10:10 Dose: 40 mg Saliva Substitute (Mouth Kote 236 Ml) 0 ml MM Q6 PRN PRN Reason: Dry mouth Vitamin A (Vitamin A & D Oint Ud Foilpak) 1 ea TOP Q8 PRN PRN Reason: dry lips Vitamin E (Vitamin E 400 Units Cap) 400 intlu GT DAILY [facility] Last Admin: 07/01/18 10:11 Dose: 400 intlu - Labs Labs: 06/30/18 06:33 06/30/18 07:16 PT 14.3 SECONDS (9.7-12.2) H 06/10/18 07:05 INR 1.3 06/10/18 07:05 APTT 33 SECONDS (21-34) 05/25/18 06:16 Attending/Attestation - Attestation I have personally seen and examined this patient.: Yes I have fully participated in the care of the patient.: Yes I have reviewed all pertinent clinical information, including history, physical exam and plan: Yes Notes (Text): 07/01/18 20:59 This is a late entry. Care of this patient was gone over in detail with the resident. Franki Denise D.O.
[2018-06-30 07:37] LABS: BLOOD UREA NITROGEN 4 mg/dL (7-17)
[2018-06-30 07:38] LABS: ALB/GLOB RATIO 0.9 (1.0-2.1); ALBUMIN 2.5 g/dL (3.5-5.0); ALT/SGPT 25 U/L (9-52); AST/SGOT 16 U/L (14-36); CALCIUM 8.1 mg/dl (8.6-10.4); GFR NON-AFRICAN AMERICAN > 60
[2018-06-30] MEDS: (Novolin R) Insulin Human Regular 100 units/ml vial SC SCH ×4 (07:50→21:27)
[2018-06-30] MEDS ORDERED: Potassium Chloride 20 mEq/15 ml LIQ UD PO ONE (09:15)
[2018-06-30] MEDS: Pantoprazole 40 mg Susp UD PO SCH (09:20)
[2018-06-30] MEDS: Enoxaparin 40 mg Syringe SC SCH (09:20)
[2018-06-30] MEDS: Cholestyramine 4 gm/Pkt UD PO SCH ×2 (09:20→17:43)
[2018-06-30] MEDS: Lactobacillus Acidophilus 500 MU Cap PEG SCH ×2 (09:20→17:43)
[2018-06-30] MEDS: GENTAMICIN 0.1% TOP SCH ×3 (09:26→17:59)
--- NOTE | 2018-06-30 10:27 | CP.PCM.PN ---
<Morris Connolly - Last Filed: 06/30/18 10:24> Subjective - Date & Time of Evaluation Date of Evaluation: 06/30/18 Time of Evaluation: 10:10 - Subjective Subjective: Pt seen and examined at bedside this am. Tolerating iron infusions without concerns, denies any associated side effects. 12-point ROS obtained, otherwise neg as per pt. Objective - Vital Signs/Intake and Output Vital Signs (last 24 hours): Temp Pulse Resp BP Pulse Ox 98.7 F 87 18 114/79 94 L 06/30/18 07:30 06/30/18 09:26 06/30/18 07:30 06/30/18 09:26 06/30/18 07:30 Intake and Output: 06/30/18 06/30/18 06:59 18:59 Intake Total 2100 Output Total 225 Balance 1875 - Medications Medications: Current Medications Acetaminophen (Tylenol 650mg/20.3ml Solution Ud) 975 mg GT Q8H PRN PRN Reason: Pain, Mild (1-3) Last Admin: 06/25/18 18:42 Dose: 975 mg Calcium Acetate (Phoslo) 667 mg GT TIDCC [facility] Last Admin: 06/30/18 08:10 Dose: 667 mg Cholestyramine Resin (Questran) 4 gm PO BID [facility] Last Admin: 06/30/18 09:20 Dose: 4 gm Dextrose (Dextrose 50% Inj) 0 ml IV STAT PRN; Protocol PRN Reason: Hypoglycemia Protocol Dextrose (Glutose 15) 0 gm PO ONCE PRN; Protocol PRN Reason: Hypoglycemia Protocol Enoxaparin Sodium (Lovenox) 40 mg SC DAILY [facility] Last Admin: 06/30/18 09:20 Dose: 40 mg Ergocalciferol (Drisdol 50,000 Intl Units Cap) 1 cap PO Q7D [facility] Stop: 07/20/18 10:01 Last Admin: 06/29/18 10:46 Dose: 1 cap Escitalopram Oxalate (Lexapro) 10 mg GT DAILY [facility] Last Admin: 06/30/18 09:20 Dose: 10 mg Gentamicin Sulfate (Gentamicin 0.1%) 0 gm TOP TID [facility] Last Admin: 06/30/18 09:26 Dose: 1 oin Glucagon (Glucagen Diagnostic Kit) 0 mg IM STAT PRN; Protocol PRN Reason: Hypoglycemia Protocol Hydrocortisone (Cortizone 1% Cream) 0 gm TOP TID PRN PRN Reason: Rash Hydromorphone HCl (Dilaudid) 1 mg IVP Q3 PRN PRN Reason: Pain, SEVERE (8-10) Last Admin: 06/30/18 08:10 Dose: 1 mg Vancomycin HCl 1,500 mg/ (Sodium Chloride) 500 mls @ 166.6 mls/hr IVPB Q12H [facility] PRN Reason: Protocol Last Admin: 06/30/18 05:13 Dose: 166.6 mls/hr Meropenem 1 gm/ Sodium (Chloride) 100 mls @ 100 mls/hr IVPB Q8H [facility] PRN Reason: Protocol Last Admin: 06/30/18 08:09 Dose: 100 mls/hr Insulin Human Regular (Novolin R) 0 unit SC ACHS [facility] PRN Reason: Protocol Last Admin: 06/30/18 07:50 Dose: Not Given Ipratropium [place] (Atrovent) 0.5 mg IH RQ6 [facility] Last Admin: 06/30/18 01:17 Dose: Not Given Lactobacillus Acidophilus (Bacid Acidophilus) 1 cap PEG BID [facility] Last Admin: 06/30/18 09:20 Dose: 1 cap Loperamide HCl (Imodium) 1 mg PO Q2H PRN PRN Reason: Diarrhea Last Admin: 06/29/18 18:34 Dose: 1 mg Lorazepam (Ativan) 1 mg IVP BID [facility] Last Admin: 06/30/18 09:20 Dose: 1 mg Metoprolol Tartrate (Lopressor) 12.5 mg PEG BID [facility] Last Admin: 06/30/18 09:25 Dose: 12.5 mg Nicotine (Nicoderm Cq) 1 patch TD DAILY [facility] Last Admin: 06/30/18 09:19 Dose: 1 patch Ondansetron HCl (Zofran Inj) 4 mg IVP Q6H PRN PRN Reason: Nausea/Vomiting Last Admin: 06/29/18 07:41 Dose: 4 mg Pantoprazole Sodium (Protonix Susp) 40 mg PO Q24H [facility] Last Admin: 06/30/18 09:20 Dose: 40 mg Saliva Substitute (Mouth Kote 236 Ml) 0 ml MM Q6 PRN PRN Reason: Dry mouth Vitamin A (Vitamin A & D Oint Ud Foilpak) 1 ea TOP Q8 PRN PRN Reason: dry lips Vitamin E (Vitamin E 400 Units Cap) 400 intlu GT DAILY [facility] Last Admin: 06/30/18 09:20 Dose: 400 intlu - Labs Labs: 06/30/18 06:33 06/30/18 07:16 PT 14.3 SECONDS (9.7-12.2) H 06/10/18 07:05 INR 1.3 06/10/18 07:05 APTT 33 SECONDS (21-34) 05/25/18 06:16 - Constitutional Appears: Non-toxic, No Acute Distress - Head Exam Head Exam: ATRAUMATIC, NORMOCEPHALIC - Eye Exam Eye Exam: EOMI, Normal appearance, PERRL - ENT Exam ENT Exam: Mucous Membranes Moist - Respiratory Exam Respiratory Exam: Clear to Ausculation Bilateral, NORMAL BREATHING PATTERN - Cardiovascular Exam Cardiovascular Exam: REGULAR RHYTHM, +S1, +S2 - GI/Abdominal Exam GI & Abdominal Exam: Soft. absent: Distended, Guarding, Rigid, Tenderness, Rebound Additional comments: Gastrostomy tube in place c/d/i - Extremities Exam Extremities Exam: Full ROM, Normal Capillary Refill, Normal Inspection - Neurological Exam Neurological Exam: Alert, Awake, CN II-XII Intact, Oriented x3 - Psychiatric Exam Psychiatric exam: Normal Affect, Normal Mood - Skin Skin Exam: Dry, Intact, Normal Color, Warm Assessment and Plan - Assessment and Plan (Free Text) Assessment: 38F PMHx chronic abd pain, gastric bypass, s/p debridement of bowel x2 for internal hernia, with iron-deficiency anemia. Plan: Iron-deficiency anemia -2/2 malabsorption from gastric bypass surgery -C/w IV iron -Hgb 9.0 today, continue to trend Further recs as per Dr. Cash, attending. Morris Connolly, DO PGY-1 <Addison Cash - Last Filed: 07/01/18 08:59> Objective - Vital Signs/Intake and Output Vital Signs (last 24 hours): Temp Pulse Resp BP Pulse Ox 98.6 F 91 H 18 109/75 97 07/01/18 08:00 07/01/18 08:00 07/01/18 08:00 07/01/18 08:00 07/01/18 08:00 Intake and Output: 07/01/18 07/01/18 06:59 18:59 Intake Total 900 Output Total 675 Balance 225 - Medications Medications: Current Medications Acetaminophen (Tylenol 650mg/20.3ml Solution Ud) 975 mg GT Q8H PRN PRN Reason: Pain, Mild (1-3) Calcium Acetate (Phoslo) 667 mg GT TIDCC [facility] Last Admin: 07/01/18 08:42 Dose: 667 mg Cholestyramine Resin (Questran) 4 gm PO BID [facility] Last Admin: 06/30/18 17:43 Dose: 4 gm Dextrose (Dextrose 50% Inj) 0 ml IV STAT PRN; Protocol PRN Reason: Hypoglycemia Protocol Dextrose (Glutose 15) 0 gm PO ONCE PRN; Protocol PRN Reason: Hypoglycemia Protocol Enoxaparin Sodium (Lovenox) 40 mg SC DAILY [facility] Ergocalciferol (Drisdol 50,000 Intl Units Cap) 1 cap PO Q7D [facility] Stop: 07/20/18 10:01 Last Admin: 06/29/18 10:46 Dose: 1 cap Escitalopram Oxalate (Lexapro) 10 mg GT DAILY [facility] Gentamicin Sulfate (Gentamicin 0.1%) 0 gm TOP TID [facility] Last Admin: 06/30/18 17:59 Dose: 1 oin Glucagon (Glucagen Diagnostic Kit) 0 mg IM STAT PRN; Protocol PRN Reason: Hypoglycemia Protocol Hydrocortisone (Cortizone 1% Cream) 0 gm TOP TID PRN PRN Reason: Rash Hydromorphone HCl (Dilaudid) 1 mg IVP Q3 PRN PRN Reason: Pain, SEVERE (8-10) Last Admin: 07/01/18 08:43 Dose: 1 mg Vancomycin HCl 1,500 mg/ (Sodium Chloride) 500 mls @ 166.6 mls/hr IVPB Q12H [facility] PRN Reason: Protocol Last Admin: 07/01/18 04:10 Dose: 166.6 mls/hr Meropenem 1 gm/ Sodium (Chloride) 100 mls @ 100 mls/hr IVPB Q8H [facility] PRN Reason: Protocol Last Admin: 07/01/18 08:42 Dose: 100 mls/hr Insulin Human Regular (Novolin R) 0 unit SC ACHS [facility] PRN Reason: Protocol Last Admin: 07/01/18 07:25 Dose: Not Given Ipratropium [place] (Atrovent) 0.5 mg RQ6 [facility] Last Admin: 07/01/18 07:58 Dose: 0.5 mg Lactobacillus Acidophilus (Bacid Acidophilus) 1 cap PEG BID [facility] Last Admin: 06/30/18 17:43 Dose: 1 cap Loperamide HCl (Imodium) 1 mg PO Q2H PRN PRN Reason: Diarrhea Last Admin: 06/29/18 18:34 Dose: 1 mg Lorazepam (Ativan) 1 mg IVP BID [facility] Last Admin: 06/30/18 17:30 Dose: 1 mg Metoprolol Tartrate (Lopressor) 12.5 mg PEG BID [facility] Last Admin: 06/30/18 17:44 Dose: 12.5 mg Nicotine (Nicoderm Cq) 1 patch TD DAILY [facility] Last Admin: 06/30/18 09:19 Dose: 1 patch Ondansetron HCl (Zofran Inj) 4 mg IVP Q6H PRN PRN Reason: Nausea/Vomiting Last Admin: 06/30/18 20:42 Dose: 4 mg Pantoprazole Sodium (Protonix Susp) 40 mg PO DAILY [facility] Saliva Substitute (Mouth Kote 236 Ml) 0 ml MM Q6 PRN PRN Reason: Dry mouth Vitamin A (Vitamin A & D Oint Ud Foilpak) 1 ea TOP Q8 PRN PRN Reason: dry lips Vitamin E (Vitamin E 400 Units Cap) 400 intlu GT DAILY [facility] Last Admin: 06/30/18 09:20 Dose: 400 intlu - Labs Labs: 06/30/18 06:33 06/30/18 07:16 PT 14.3 SECONDS (9.7-12.2) H 06/10/18 07:05 INR 1.3 06/10/18 07:05 APTT 33 SECONDS (21-34) 05/25/18 06:16 Assessment and Plan (1) Iron deficiency anemia Status: Acute - Assessment and Plan (Free Text) Plan: Pt seen and examined, agree with residents note.
--- NOTE | 2018-06-30 10:54 | CP.PCM.PN ---
<Barbara Badillo - Last Filed: 07/01/18 21:39> Subjective - Date & Time of Evaluation Date of Evaluation: 06/30/18 Time of Evaluation: 10:51 - Subjective Subjective: General surgery progress note for Dr. Harley-Barbara Badillo, PGY-2 Pt S & E at bedside 1030 Pt reports occasional nausea, no emesis. No abdominal pain, other complaints. NGT - 200 cc/24hrs Objective - Vital Signs/Intake and Output Vital Signs (last 24 hours): Temp Pulse Resp BP Pulse Ox 98.7 F 87 18 114/79 94 L 06/30/18 07:30 06/30/18 09:26 06/30/18 07:30 06/30/18 09:26 06/30/18 07:30 Intake and Output: 06/30/18 06/30/18 06:59 18:59 Intake Total 2100 Output Total 225 Balance 1875 - Medications Medications: Current Medications Acetaminophen (Tylenol 650mg/20.3ml Solution Ud) 975 mg GT Q8H PRN PRN Reason: Pain, Mild (1-3) Last Admin: 06/25/18 18:42 Dose: 975 mg Calcium Acetate (Phoslo) 667 mg GT TIDCC [facility] Last Admin: 06/30/18 08:10 Dose: 667 mg Cholestyramine Resin (Questran) 4 gm PO BID [facility] Last Admin: 06/30/18 09:20 Dose: 4 gm Dextrose (Dextrose 50% Inj) 0 ml IV STAT PRN; Protocol PRN Reason: Hypoglycemia Protocol Dextrose (Glutose 15) 0 gm PO ONCE PRN; Protocol PRN Reason: Hypoglycemia Protocol Enoxaparin Sodium (Lovenox) 40 mg SC DAILY [facility] Last Admin: 06/30/18 09:20 Dose: 40 mg Ergocalciferol (Drisdol 50,000 Intl Units Cap) 1 cap PO Q7D [facility] Stop: 07/20/18 10:01 Last Admin: 06/29/18 10:46 Dose: 1 cap Escitalopram Oxalate (Lexapro) 10 mg GT DAILY [facility] Last Admin: 06/30/18 09:20 Dose: 10 mg Gentamicin Sulfate (Gentamicin 0.1%) 0 gm TOP TID [facility] Last Admin: 06/30/18 09:26 Dose: 1 oin Glucagon (Glucagen Diagnostic Kit) 0 mg IM STAT PRN; Protocol PRN Reason: Hypoglycemia Protocol Hydrocortisone (Cortizone 1% Cream) 0 gm TOP TID PRN PRN Reason: Rash Hydromorphone HCl (Dilaudid) 1 mg IVP Q3 PRN PRN Reason: Pain, SEVERE (8-10) Last Admin: 06/30/18 08:10 Dose: 1 mg Vancomycin HCl 1,500 mg/ (Sodium Chloride) 500 mls @ 166.6 mls/hr IVPB Q12H [facility] PRN Reason: Protocol Last Admin: 06/30/18 05:13 Dose: 166.6 mls/hr Meropenem 1 gm/ Sodium (Chloride) 100 mls @ 100 mls/hr IVPB Q8H [facility] PRN Reason: Protocol Last Admin: 06/30/18 08:09 Dose: 100 mls/hr Insulin Human Regular (Novolin R) 0 unit SC ACHS [facility] PRN Reason: Protocol Last Admin: 06/30/18 07:50 Dose: Not Given Ipratropium [place] (Atrovent) 0.5 mg IH RQ6 [facility] Last Admin: 06/30/18 01:17 Dose: Not Given Lactobacillus Acidophilus (Bacid Acidophilus) 1 cap PEG BID [facility] Last Admin: 06/30/18 09:20 Dose: 1 cap Loperamide HCl (Imodium) 1 mg PO Q2H PRN PRN Reason: Diarrhea Last Admin: 06/29/18 18:34 Dose: 1 mg Lorazepam (Ativan) 1 mg IVP BID [facility] Last Admin: 06/30/18 09:20 Dose: 1 mg Metoprolol Tartrate (Lopressor) 12.5 mg PEG BID [facility] Last Admin: 06/30/18 09:25 Dose: 12.5 mg Nicotine (Nicoderm Cq) 1 patch TD DAILY [facility] Last Admin: 06/30/18 09:19 Dose: 1 patch Ondansetron HCl (Zofran Inj) 4 mg IVP Q6H PRN PRN Reason: Nausea/Vomiting Last Admin: 06/29/18 07:41 Dose: 4 mg Pantoprazole Sodium (Protonix Susp) 40 mg PO Q24H [facility] Last Admin: 06/30/18 09:20 Dose: 40 mg Saliva Substitute (Mouth Kote 236 Ml) 0 ml MM Q6 PRN PRN Reason: Dry mouth Vitamin A (Vitamin A & D Oint Ud Foilpak) 1 ea TOP Q8 PRN PRN Reason: dry lips Vitamin E (Vitamin E 400 Units Cap) 400 intlu GT DAILY [facility] Last Admin: 06/30/18 09:20 Dose: 400 intlu - Labs Labs: 06/30/18 06:33 06/30/18 07:16 PT 14.3 SECONDS (9.7-12.2) H 06/10/18 07:05 INR 1.3 06/10/18 07:05 APTT 33 SECONDS (21-34) 05/25/18 06:16 - Constitutional Appears: Non-toxic, No Acute Distress - Head Exam Head Exam: ATRAUMATIC, NORMAL INSPECTION, NORMOCEPHALIC Additional comments: NGT in place - Eye Exam Eye Exam: EOMI, Normal appearance - ENT Exam ENT Exam: Mucous Membranes Moist, Normal Exam - Respiratory Exam Respiratory Exam: NORMAL BREATHING PATTERN - Cardiovascular Exam Cardiovascular Exam: REGULAR RHYTHM, +S1, +S2 - GI/Abdominal Exam GI & Abdominal Exam: Soft. 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 Gastrostomy tube in bypassed stomach, EGD Wound vac in place over midline incision Plan: Monitor wound vac output Wound vac changes Q72H Wound vac changed today Cont NPO/NGT Monitor NGT output NGT to low-intermittent wall suction Cont TPN OOBTC Ambulate with assistance Encourage IS use Awaiting Dr. Mccray's response to coordinate take back surgery Will DW Dr. Cricket Badillo, PGY-2 <Gómez Harley - Last Filed: 07/03/18 19:08> Objective - Vital Signs/Intake and Output Vital Signs (last 24 hours): Temp Pulse Resp BP Pulse Ox 98.2 F 103 H 18 123/85 96 07/03/18 16:00 07/03/18 16:00 07/03/18 16:00 07/03/18 16:00 07/03/18 16:00 Intake and Output: 07/03/18 07/04/18 18:59 06:59 Intake Total 100 Output Total 100 Balance 0 - Medications Medications: Current Medications Acetaminophen (Tylenol 650mg/20.3ml Solution Ud) 975 mg GT Q8H PRN PRN Reason: Pain, Mild (1-3) Calcium Acetate (Phoslo) 667 mg GT TIDCC [facility] Last Admin: 07/03/18 17:21 Dose: 667 mg Cholestyramine Resin (Questran) 4 gm PO BID [facility] Last Admin: 07/03/18 17:24 Dose: 4 gm Dextrose (Dextrose 50% Inj) 0 ml IV STAT PRN; Protocol PRN Reason: Hypoglycemia Protocol Dextrose (Glutose 15) 0 gm PO ONCE PRN; Protocol PRN Reason: Hypoglycemia Protocol Enoxaparin Sodium (Lovenox) 40 mg SC DAILY [facility] Last Admin: 07/03/18 10:52 Dose: 40 mg Ergocalciferol (Drisdol 50,000 Intl Units Cap) 1 cap PO Q7D [facility] Stop: 07/20/18 10:01 Last Admin: 06/29/18 10:46 Dose: 1 cap Escitalopram Oxalate (Lexapro) 10 mg GT DAILY [facility] Last Admin: 07/03/18 10:51 Dose: 10 mg Gentamicin Sulfate (Gentamicin 0.1%) 0 gm TOP TID [facility] Last Admin: 07/03/18 17:23 Dose: 1 oin Glucagon (Glucagen Diagnostic Kit) 0 mg IM STAT PRN; Protocol PRN Reason: Hypoglycemia Protocol Hydrocortisone (Cortizone 1% Cream) 0 gm TOP TID PRN PRN Reason: Rash Hydromorphone HCl (Dilaudid) 1 mg IVP Q3 PRN PRN Reason: Pain, SEVERE (8-10) Last Admin: 07/03/18 17:20 Dose: 1 mg Vancomycin HCl 1,500 mg/ (Sodium Chloride) 500 mls @ 166.6 mls/hr IVPB Q12H [facility] PRN Reason: Protocol Last Admin: 07/03/18 18:29 Dose: 166.6 mls/hr Meropenem 1 gm/ Sodium (Chloride) 100 mls @ 100 mls/hr IVPB Q8H [facility] PRN Reason: Protocol Last Admin: 07/03/18 17:21 Dose: 100 mls/hr Insulin Human Regular (Novolin R) 0 unit SC ACHS [facility] PRN Reason: Protocol Last Admin: 07/03/18 17:06 Dose: Not Given Ipratropium [place] (Atrovent) 0.5 mg IH RQ6 [facility] Last Admin: 07/03/18 13:28 Dose: 0.5 mg Lactobacillus Acidophilus (Bacid Acidophilus) 1 cap PEG BID [facility] Last Admin: 07/03/18 17:21 Dose: 1 cap Loperamide HCl (Imodium) 1 mg PO Q2H PRN PRN Reason: Diarrhea Last Admin: 07/03/18 08:12 Dose: 1 mg Lorazepam (Ativan) 1 mg IVP BID [facility] Last Admin: 07/03/18 18:29 Dose: 1 mg Metoprolol Tartrate (Lopressor) 12.5 mg PEG BID [facility] Last Admin: 07/03/18 17:21 Dose: 12.5 mg Nicotine (Nicoderm Cq) 1 patch TD DAILY [facility] Last Admin: 07/03/18 10:52 Dose: 1 patch Ondansetron HCl (Zofran Inj) 4 mg IVP Q6H PRN PRN Reason: Nausea/Vomiting Last Admin: 07/03/18 18:33 Dose: 4 mg Pantoprazole Sodium (Protonix Susp) 40 mg PO DAILY [facility] Last Admin: 07/03/18 10:52 Dose: 40 mg Saliva Substitute (Mouth Kote 236 Ml) 0 ml MM Q6 PRN PRN Reason: Dry mouth Vitamin A (Vitamin A & D Oint Ud Foilpak) 1 ea TOP Q8 PRN PRN Reason: dry lips Vitamin E (Vitamin E 400 Units Cap) 400 intlu GT DAILY [facility] Last Admin: 07/03/18 10:51 Dose: 400 intlu - Labs Labs: 07/02/18 04:52 07/02/18 04:52 PT 14.3 SECONDS (9.7-12.2) H 06/10/18 07:05 INR 1.3 06/10/18 07:05 APTT 33 SECONDS (21-34) 05/25/18 06:16 Attending/Attestation - Attestation I have personally seen and examined this patient.: Yes I have fully participated in the care of the patient.: Yes I have reviewed all pertinent clinical information, including history, physical exam and plan: Yes Notes (Text): Pt was seen and examined at bedside Agree with above note and assessment Pt is improving clinically c.w local wound care c.w current mx Plan d.w pt in detail
[2018-06-30] MEDS ORDERED: Vitamins A & D Oint UD Foilpak TOP PRN (14:19)
[2018-06-30] MEDS ORDERED: Pantoprazole 40 mg Susp UD PO SCH (14:30)
--- NOTE | 2018-06-30 20:41 | CP.PCM.PN ---
Subjective - Date & Time of Evaluation Date of Evaluation: 06/30/18 Time of Evaluation: 13:00 - Subjective Subjective: dictated Objective - Vital Signs/Intake and Output Vital Signs (last 24 hours): Temp Pulse Resp BP Pulse Ox 98.3 F 106 H 20 112/72 98 06/30/18 15:00 06/30/18 15:00 06/30/18 15:00 06/30/18 15:00 06/30/18 15:00 Intake and Output: 06/30/18 07/01/18 18:59 06:59 Intake Total 508 Output Total 350 Balance 158 - Medications Medications: Current Medications Acetaminophen (Tylenol 650mg/20.3ml Solution Ud) 975 mg GT Q8H PRN PRN Reason: Pain, Mild (1-3) Calcium Acetate (Phoslo) 667 mg GT TIDCC [facility] Last Admin: 06/30/18 17:44 Dose: 667 mg Cholestyramine Resin (Questran) 4 gm PO BID [facility] Last Admin: 06/30/18 17:43 Dose: 4 gm Dextrose (Dextrose 50% Inj) 0 ml IV STAT PRN; Protocol PRN Reason: Hypoglycemia Protocol Dextrose (Glutose 15) 0 gm PO ONCE PRN; Protocol PRN Reason: Hypoglycemia Protocol Enoxaparin Sodium (Lovenox) 40 mg SC DAILY [facility] Ergocalciferol (Drisdol 50,000 Intl Units Cap) 1 cap PO Q7D [facility] Stop: 07/20/18 10:01 Last Admin: 06/29/18 10:46 Dose: 1 cap Escitalopram Oxalate (Lexapro) 10 mg GT DAILY [facility] Gentamicin Sulfate (Gentamicin 0.1%) 0 gm TOP TID [facility] Last Admin: 06/30/18 17:59 Dose: 1 oin Glucagon (Glucagen Diagnostic Kit) 0 mg IM STAT PRN; Protocol PRN Reason: Hypoglycemia Protocol Hydrocortisone (Cortizone 1% Cream) 0 gm TOP TID PRN PRN Reason: Rash Hydromorphone HCl (Dilaudid) 1 mg IVP Q3 PRN PRN Reason: Pain, SEVERE (8-10) Last Admin: 06/30/18 20:36 Dose: 1 mg Vancomycin HCl 1,500 mg/ (Sodium Chloride) 500 mls @ 166.6 mls/hr IVPB Q12H [facility] PRN Reason: Protocol Last Admin: 06/30/18 17:59 Dose: 166.6 mls/hr Meropenem 1 gm/ Sodium (Chloride) 100 mls @ 100 mls/hr IVPB Q8H [facility] PRN Reason: Protocol Last Admin: 06/30/18 15:17 Dose: 100 mls/hr Insulin Human Regular (Novolin R) 0 unit SC ACHS [facility] PRN Reason: Protocol Last Admin: 06/30/18 16:13 Dose: Not Given Ipratropium [place] (Atrovent) 0.5 mg IH RQ6 [facility] Last Admin: 06/30/18 19:16 Dose: 0.5 mg Lactobacillus Acidophilus (Bacid Acidophilus) 1 cap PEG BID [facility] Last Admin: 06/30/18 17:43 Dose: 1 cap Loperamide HCl (Imodium) 1 mg PO Q2H PRN PRN Reason: Diarrhea Last Admin: 06/29/18 18:34 Dose: 1 mg Lorazepam (Ativan) 1 mg IVP BID [facility] Last Admin: 06/30/18 17:30 Dose: 1 mg Metoprolol Tartrate (Lopressor) 12.5 mg PEG BID [facility] Last Admin: 06/30/18 17:44 Dose: 12.5 mg Nicotine (Nicoderm Cq) 1 patch TD DAILY [facility] Last Admin: 06/30/18 09:19 Dose: 1 patch Ondansetron HCl (Zofran Inj) 4 mg IVP Q6H PRN PRN Reason: Nausea/Vomiting Pantoprazole Sodium (Protonix Susp) 40 mg PO DAILY [facility] Saliva Substitute (Mouth Kote 236 Ml) 0 ml MM Q6 PRN PRN Reason: Dry mouth Vitamin A (Vitamin A & D Oint Ud Foilpak) 1 ea TOP Q8 PRN PRN Reason: dry lips Vitamin E (Vitamin E 400 Units Cap) 400 intlu GT DAILY [facility] Last Admin: 06/30/18 09:20 Dose: 400 intlu - Labs Labs: 06/30/18 06:33 06/30/18 07:16 PT 14.3 SECONDS (9.7-12.2) H 06/10/18 07:05 INR 1.3 06/10/18 07:05 APTT 33 SECONDS (21-34) 05/25/18 06:16
--- NOTE | 2018-07-01 01:48 | PN ---
DATE: 06/30/2018INFECTIOUS DISEASE FOLLOWUP NOTE SUBJECTIVE: The patient was comfortable. She had a company today. She denied any pain. She has been tolerating food. She thinks she is ready for the next surgery. PHYSICAL EXAMINATION: GENERAL: She is afebrile. She has PICC line. She said they had to open it because it was clogged. VITAL SIGNS: T-max is 98.4. Pulse is 87, blood pressure 114/79, respirations are 18. HEAD: Head is atraumatic, normocephalic. NECK: Supple. LUNGS: Clear. No crackles or rales present. HEART: S1, S2 are regular. NG tube is present. ABDOMEN: She has a vacuum to the midline surgical scar. Also has a jejunostomy tube at this time. EXTREMITIES: Have no edema. LABORATORY DATA: Labs are noted. Labs show white count is 7.9, hemoglobin 9, hematocrit 27.2, platelet count is 263. Chemistry shows potassium is 3.5, BUN is 4, creatinine 0.4. Her cultures were Pseudomonas aeruginosa on both the wounds. ASSESSMENT AND PLAN: It could be that there is a leak there at the jejunostomy tube which Dr. Harley was mentioning, but he is waiting for her to recuperate from the first surgery as she has extensive debridement and surgery for an ischemic bowel and went to operating room several times. At this time, we will continue with vancomycin and meropenem. We will give Merrem for 10 days for now and vancomycin. We will think of discontinuing it after the weekend. We will follow the plans with the surgical team, and this patient is status post ischemic bowel surgery and is status post gastric bypass and has multiple bacteria on the surgical wounds. Guero Rivera MD
[2018-07-01] MEDS: Ipratropium 0.02% Inhal Soln (0.5 mg/2.5 ml) UD IH SCH ×4 (02:35→19:31)
--- NOTE | 2018-07-01 06:56 | CP.PCM.PN ---
<Esther Angulo - Last Filed: 07/01/18 18:24> Subjective - Date & Time of Evaluation Date of Evaluation: 07/01/18 Time of Evaluation: 06:54 - Subjective Subjective: PGY-1 Medicine Progress note for Dr. Denise Patient was seen and examined today at bedside in no acute distress. Nurse reports no overnight events. Patient complains of difficulty sleeping due to construction noises and flipped sleeping schedule. Last The NGT still suctioned 350cc of clear fluid, likely water/ice chips, in the last 24 hours. Wound vac replaced today by surgical team. Patient has no other complaints. She had 2 bowel movements with loose watery stool today. Denies chest pain, shortness of breath, sore throat, dizziness, headache, numbness, weakness, cough, wheezing, fever, chills. Objective - Vital Signs/Intake and Output Vital Signs (last 24 hours): Temp Pulse Resp BP Pulse Ox 98.4 F 103 H 20 107/65 97 06/30/18 23:30 06/30/18 23:30 06/30/18 23:30 06/30/18 23:30 06/30/18 23:30 Intake and Output: 06/30/18 07/01/18 18:59 06:59 Intake Total 508 900 Output Total 350 675 Balance 158 225 - Medications Medications: Current Medications Acetaminophen (Tylenol 650mg/20.3ml Solution Ud) 975 mg GT Q8H PRN PRN Reason: Pain, Mild (1-3) Calcium Acetate (Phoslo) 667 mg GT TIDCC [facility] Last Admin: 06/30/18 17:44 Dose: 667 mg Cholestyramine Resin (Questran) 4 gm PO BID [facility] Last Admin: 06/30/18 17:43 Dose: 4 gm Dextrose (Dextrose 50% Inj) 0 ml IV STAT PRN; Protocol PRN Reason: Hypoglycemia Protocol Dextrose (Glutose 15) 0 gm PO ONCE PRN; Protocol PRN Reason: Hypoglycemia Protocol Enoxaparin Sodium (Lovenox) 40 mg SC DAILY [facility] Ergocalciferol (Drisdol 50,000 Intl Units Cap) 1 cap PO Q7D [facility] Stop: 07/20/18 10:01 Last Admin: 06/29/18 10:46 Dose: 1 cap Escitalopram Oxalate (Lexapro) 10 mg GT DAILY [facility] Gentamicin Sulfate (Gentamicin 0.1%) 0 gm TOP TID [facility] Last Admin: 06/30/18 17:59 Dose: 1 oin Glucagon (Glucagen Diagnostic Kit) 0 mg IM STAT PRN; Protocol PRN Reason: Hypoglycemia Protocol Hydrocortisone (Cortizone 1% Cream) 0 gm TOP TID PRN PRN Reason: Rash Hydromorphone HCl (Dilaudid) 1 mg IVP Q3 PRN PRN Reason: Pain, SEVERE (8-10) Last Admin: 07/01/18 05:53 Dose: 1 mg Vancomycin HCl 1,500 mg/ (Sodium Chloride) 500 mls @ 166.6 mls/hr IVPB Q12H [facility] PRN Reason: Protocol Last Admin: 07/01/18 04:10 Dose: 166.6 mls/hr Meropenem 1 gm/ Sodium (Chloride) 100 mls @ 100 mls/hr IVPB Q8H [facility] PRN Reason: Protocol Last Admin: 06/30/18 23:57 Dose: 100 mls/hr Insulin Human Regular (Novolin R) 0 unit SC ACHS [facility] PRN Reason: Protocol Last Admin: 06/30/18 21:27 Dose: Not Given Ipratropium [place] (Atrovent) 0.5 mg IH RQ6 [facility] Last Admin: 07/01/18 02:35 Dose: Not Given Lactobacillus Acidophilus (Bacid Acidophilus) 1 cap PEG BID [facility] Last Admin: 06/30/18 17:43 Dose: 1 cap Loperamide HCl (Imodium) 1 mg PO Q2H PRN PRN Reason: Diarrhea Last Admin: 06/29/18 18:34 Dose: 1 mg Lorazepam (Ativan) 1 mg IVP BID [facility] Last Admin: 06/30/18 17:30 Dose: 1 mg Metoprolol Tartrate (Lopressor) 12.5 mg PEG BID [facility] Last Admin: 06/30/18 17:44 Dose: 12.5 mg Nicotine (Nicoderm Cq) 1 patch TD DAILY [facility] Last Admin: 06/30/18 09:19 Dose: 1 patch Ondansetron HCl (Zofran Inj) 4 mg IVP Q6H PRN PRN Reason: Nausea/Vomiting Last Admin: 06/30/18 20:42 Dose: 4 mg Pantoprazole Sodium (Protonix Susp) 40 mg PO DAILY [facility] Saliva Substitute (Mouth Kote 236 Ml) 0 ml MM Q6 PRN PRN Reason: Dry mouth Vitamin A (Vitamin A & D Oint Ud Foilpak) 1 ea TOP Q8 PRN PRN Reason: dry lips Vitamin E (Vitamin E 400 Units Cap) 400 intlu GT DAILY [facility] Last Admin: 06/30/18 09:20 Dose: 400 intlu - Labs Labs: 06/30/18 06:33 06/30/18 07:16 PT 14.3 SECONDS (9.7-12.2) H 06/10/18 07:05 INR 1.3 06/10/18 07:05 APTT 33 SECONDS (21-34) 05/25/18 06:16 - Additional Findings Additional findings: - Constitutional Appears: Non-toxic, No Acute Distress, Chronically Ill - Head Exam Head Exam: ATRAUMATIC, NORMOCEPHALIC - Eye Exam Eye Exam: EOMI, Normal appearance - ENT Exam ENT Exam: Mucous Membranes Moist, Normal Exam - Respiratory Exam Respiratory Exam: Clear to Ausculation Bilateral, NORMAL BREATHING PATTERN. absent: Rales, Rhonchi, Wheezes - Cardiovascular Exam Cardiovascular Exam: REGULAR RHYTHM, +S1, +S2. absent: Murmur - GI/Abdominal Exam GI & Abdominal Exam: Soft, Normal Bowel Sounds. absent: Firm, Guarding, Rigid, Tenderness Additional comments: wound vac in place, Gtube in place both dressings c/d/i - Extremities Exam Extremities Exam: Full ROM, Normal Capillary Refill, Normal Inspection Additional comments: peripheral pulses palpable (radial, PT, DP) R PICC in place - Neurological Exam Neurological Exam: Alert, Awake, Normal Gait, Oriented x3 - Skin Skin Exam: Dry, Intact, Normal Color Assessment and Plan - Assessment and Plan (Free Text) Assessment: 38F with a PMH of HTN, HLD, DM2, asthma s/p bowel resection (05/14, 05/16) 2/2 internal hernia s/p [id number] gastric bypass in 2013 admitted for medical optimization prior to reversal of bypass. 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 Harley (surgery) on the case - Wound vac to continuous suction - replaced on 06/22 by surgery - Dr. Cash ([facility] onc) consulted for Fe status - appreciated recommendations * Iron 17, TIBC 238, % sat 7, ferritin 14.5, retic 3.2 Other cultures: New (06/22/18): abdominal incision: Pseudomonas Aeruginosa sensitive to Meropenem New (06/22/18): Peg site: Pseudomonas Aeruginosa sensitive to Meropenem Peritoneal Fluid (05/14/18): Pseudomonas Aeruginosa sensitive to Meropenem Wound Culture (05/23/18): Yudith Albicans Blood Culture (05/15/18, 05/22/18): no growth Urine Culture (05/22/18): no growth Incision Site (05/31/18): Enterococcus faecalis, Acinetobacter baumannii Stool Cultures (06/03/18): No salmonella, shigella, or campylobacteria isolates Repeat wound culture (06/13/18): Coag neg Staph, enterococcus raffinosus Antibiotics: Continue Meropenem 1g Q8H IVPB Continue Vancomycin 1gm IV Q12Hr (started 06/16 @ 12pm), goal vanc trough 15-20 Discontinued Cipro 400 mg IV q12hrs (started 06/02, last day 06/16/18) Completed Flagyl 500mg IVPB q8hrs (active since 05/15/18-06/19/18) Measure vitamin levels and replace as needed: Vit D <12.8- vid D 50,000 unites q1wk x8 wks B12 707, wnl Folate 12.6, wnl Vit A 42, wnl Alpha Vit E 5.6, wnl Vit A, B1, B6, E levels reordered on 06/15. - VitB1: inappropriately submitted, 06/01 value acceptable - VitB6: 5.9, wnl - Tabitha, E collected Medication: Continue Tylenol 975 mg liq q8hrs Continue Dilaudad 1mg IV q3hrs PRN Continue Zofran 4mg IV q6hrs PRN Tachycardia, persistent (110s-130s)- possibly etiologies include pain, infection , anxiety -She is being treated for Left G Tube fluid infection. -Continue Ativan PRN -Continue Dilaudid on board to be used PRN. -Continue Metoprolol tartrate 5mg IV q6hrs with holding parameters (SBP <100, HR <60) Diarrhea, acute, improving- suspect secondary to PO intake by pt -C.Diff (05/22, 05/24, 05/28): negative -Stool O&P (05/25/18): negative -Stool leukocytes (05/25/18): negative -per ID continue Flagyl due to leak around wound vac -Imodium 1mg PO Q2H PRN Anxiety -Triage Register Nurse consulted- pt initially refused but then accepted -Psychiatry consulted (Dr. Reyez)- managing Ativan -Continue Ativan 1mg IV BID -Continue Lexapro 10mg GT daily (started 05/31) Insomnia - Discontinue, Benadryl 25 mg IVP HS PRN, clinically not indicated Anemia, acute, stable, pt denies blood in stool -Patient received a total of 2 PRBC (on 05/16) and 4 FFP (on 05/15 and 05/16) -Iron 16, TIBC 205, %sat 4.7, ferritin 75.3 -Monitor CBC Q2D Thrombocytosis, improving (504)- suspect reactive to pain, surgery- Resolved -Monitory CBC Q2D Diabetes Mellitus, Type 2- controlled -From prior note: Admittedly non-compliant, has not taken Januvia for one year -Accuchecks q6hrs -Hypoglycemic protocol -ISS regular -HbA1c 5.8 -History of gastric bypass surgery Hypercholesterolemia- untreated - LDL <30, HDL 23, Chol 59, TG 195 (06/03/18) - History of gastric bypass surgery - Questran 4gm PO BID History of Hypertension, controlled - Since gastric bypass has not taken meds - Metoprolol 5mg IV q6hrs History of Asthma- Chronic - Atrovent q6hrs Nicotine use disorder- Chronic - From prior note: 1ppd x 20 yrs, 1/2ppd x3 yrs - Continue Nicoderm 1 patch TD QD Electrolyte Imbalance: hypokalemia, hypomagnesemia - resolved - Continue to monitor with AM labs, replete as needed Prophylaxis -Hydrocortisone 1% Cream topical TID for Right Upper Inner Arm macular rash- improved -Vitamin A&D topical q8hrs PRN for dry lips -Saliva substitute q6hrs PRN for dry mouth -IVF: not indicated -VTE ppx: Lovenox 40mg SC daily, SCDs; encourage ambulation -GI ppx: Protonix 40mg IV BID, Florastor BID -Code status: full code Dispo: PT consulted- working with patient daily, rec home PT with services. Will stay at [facility] until bypass reversal surgery. Pending Dr. Mccray recs. d/w Dr. Howie Angulo PGY1 <Franki Denise - Last Filed: 07/01/18 20:58> Objective - Vital Signs/Intake and Output Vital Signs (last 24 hours): Temp Pulse Resp BP Pulse Ox 99 F 95 H 18 119/80 95 07/01/18 15:48 07/01/18 15:48 07/01/18 15:48 07/01/18 15:48 07/01/18 15:48 Intake and Output: 07/01/18 07/02/18 18:59 06:59 Intake Total 443 Output Total 185 Balance 258 - Medications Medications: Current Medications Acetaminophen (Tylenol 650mg/20.3ml Solution Ud) 975 mg GT Q8H PRN PRN Reason: Pain, Mild (1-3) Calcium Acetate (Phoslo) 667 mg GT TIDCC [facility] Last Admin: 07/01/18 18:19 Dose: 667 mg Cholestyramine Resin (Questran) 4 gm PO BID [facility] Last Admin: 07/01/18 18:21 Dose: 4 gm Dextrose (Dextrose 50% Inj) 0 ml IV STAT PRN; Protocol PRN Reason: Hypoglycemia Protocol Dextrose (Glutose 15) 0 gm PO ONCE PRN; Protocol PRN Reason: Hypoglycemia Protocol Enoxaparin Sodium (Lovenox) 40 mg SC DAILY [facility] Last Admin: 07/01/18 10:11 Dose: 40 mg Ergocalciferol (Drisdol 50,000 Intl Units Cap) 1 cap PO Q7D [facility] Stop: 07/20/18 10:01 Last Admin: 06/29/18 10:46 Dose: 1 cap Escitalopram Oxalate (Lexapro) 10 mg GT DAILY [facility] Last Admin: 07/01/18 10:10 Dose: 10 mg Gentamicin Sulfate (Gentamicin 0.1%) 0 gm TOP TID [facility] Last Admin: 07/01/18 18:22 Dose: 1 oin Glucagon (Glucagen Diagnostic Kit) 0 mg IM STAT PRN; Protocol PRN Reason: Hypoglycemia Protocol Hydrocortisone (Cortizone 1% Cream) 0 gm TOP TID PRN PRN Reason: Rash Hydromorphone HCl (Dilaudid) 1 mg IVP Q3 PRN PRN Reason: Pain, SEVERE (8-10) Last Admin: 07/01/18 20:46 Dose: 1 mg Vancomycin HCl 1,500 mg/ (Sodium Chloride) 500 mls @ 166.6 mls/hr IVPB Q12H [facility] PRN Reason: Protocol Last Admin: 07/01/18 18:22 Dose: 166.6 mls/hr Meropenem 1 gm/ Sodium (Chloride) 100 mls @ 100 mls/hr IVPB Q8H [facility] PRN Reason: Protocol Last Admin: 07/01/18 14:44 Dose: 100 mls/hr Insulin Human Regular (Novolin R) 0 unit SC ACHS [facility] PRN Reason: Protocol Last Admin: 07/01/18 18:20 Dose: Not Given Ipratropium [place] (Atrovent) 0.5 mg IH RQ6 [facility] Last Admin: 07/01/18 19:31 Dose: 0.5 mg Lactobacillus Acidophilus (Bacid Acidophilus) 1 cap PEG BID [facility] Last Admin: 07/01/18 18:19 Dose: 1 cap Loperamide HCl (Imodium) 1 mg PO Q2H PRN PRN Reason: Diarrhea Last Admin: 07/01/18 18:31 Dose: 1 mg Lorazepam (Ativan) 1 mg IVP BID [facility] Last Admin: 07/01/18 18:19 Dose: 1 mg Metoprolol Tartrate (Lopressor) 12.5 mg PEG BID [facility] Last Admin: 07/01/18 18:19 Dose: 12.5 mg Nicotine (Nicoderm Cq) 1 patch TD DAILY [facility] Last Admin: 07/01/18 10:13 Dose: 1 patch Ondansetron HCl (Zofran Inj) 4 mg IVP Q6H PRN PRN Reason: Nausea/Vomiting Last Admin: 06/30/18 20:42 Dose: 4 mg Pantoprazole Sodium (Protonix Susp) 40 mg PO DAILY [facility] Last Admin: 07/01/18 10:10 Dose: 40 mg Saliva Substitute (Mouth Kote 236 Ml) 0 ml MM Q6 PRN PRN Reason: Dry mouth Vitamin A (Vitamin A & D Oint Ud Foilpak) 1 ea TOP Q8 PRN PRN Reason: dry lips Vitamin E (Vitamin E 400 Units Cap) 400 intlu GT DAILY [facility] Last Admin: 07/01/18 10:11 Dose: 400 intlu - Labs Labs: 06/30/18 06:33 06/30/18 07:16 PT 14.3 SECONDS (9.7-12.2) H 06/10/18 07:05 INR 1.3 06/10/18 07:05 APTT 33 SECONDS (21-34) 05/25/18 06:16 Attending/Attestation - Attestation I have personally seen and examined this patient.: Yes I have fully participated in the care of the patient.: Yes I have reviewed all pertinent clinical information, including history, physical exam and plan: Yes Notes (Text): 07/01/18 20:57 Patient was seen and examined at 2:00 PM Care of this patient was gone over with the resident. I have discussed with Splitting Machine Operator Lilian concerning patient's request for unspecified letter for her living arrangements. Franki Denise D.O.
[2018-07-01] MEDS: (Novolin R) Insulin Human Regular 100 units/ml vial SC SCH ×4 (07:25→21:35)
[2018-07-01] MEDS: Meropenem 1 GM in Sodium Chloride 0.9% 100 ML IVPB SCH ×3 (08:42→22:45)
[2018-07-01] MEDS: Pantoprazole 40 mg Susp UD PO SCH (10:10)
[2018-07-01] MEDS: Loperamide Hydrochloride 1 mg/5 ml Cup PO PRN ×2 (10:11→18:31)
[2018-07-01] MEDS: Lactobacillus Acidophilus 500 MU Cap PEG SCH ×2 (10:11→18:19)
[2018-07-01] MEDS: Enoxaparin 40 mg Syringe SC SCH (10:11)
[2018-07-01] MEDS: Cholestyramine 4 gm/Pkt UD PO SCH ×2 (10:14→18:21)
[2018-07-01] MEDS: GENTAMICIN 0.1% TOP SCH ×3 (10:15→18:22)
--- NOTE | 2018-07-01 10:41 | CP.PCM.PN ---
Subjective - Date & Time of Evaluation Date of Evaluation: 07/01/18 Time of Evaluation: 09:45 - Subjective Subjective: Pt seen and examined at bedside, denies any acute complaints, resting comfortably at bedside. 12-point ROS obtained, otherwise neg as per pt. Objective - Vital Signs/Intake and Output Vital Signs (last 24 hours): Temp Pulse Resp BP Pulse Ox 98.6 F 91 H 18 109/75 97 07/01/18 08:00 07/01/18 08:00 07/01/18 08:00 07/01/18 08:00 07/01/18 08:00 Intake and Output: 07/01/18 07/01/18 06:59 18:59 Intake Total 900 Output Total 675 Balance 225 - Medications Medications: Current Medications Acetaminophen (Tylenol 650mg/20.3ml Solution Ud) 975 mg GT Q8H PRN PRN Reason: Pain, Mild (1-3) Calcium Acetate (Phoslo) 667 mg GT TIDCC [facility] Last Admin: 07/01/18 08:42 Dose: 667 mg Cholestyramine Resin (Questran) 4 gm PO BID [facility] Last Admin: 07/01/18 10:14 Dose: 4 gm Dextrose (Dextrose 50% Inj) 0 ml IV STAT PRN; Protocol PRN Reason: Hypoglycemia Protocol Dextrose (Glutose 15) 0 gm PO ONCE PRN; Protocol PRN Reason: Hypoglycemia Protocol Enoxaparin Sodium (Lovenox) 40 mg SC DAILY [facility] Last Admin: 07/01/18 10:11 Dose: 40 mg Ergocalciferol (Drisdol 50,000 Intl Units Cap) 1 cap PO Q7D [facility] Stop: 07/20/18 10:01 Last Admin: 06/29/18 10:46 Dose: 1 cap Escitalopram Oxalate (Lexapro) 10 mg GT DAILY [facility] Last Admin: 07/01/18 10:10 Dose: 10 mg Gentamicin Sulfate (Gentamicin 0.1%) 0 gm TOP TID [facility] Last Admin: 07/01/18 10:15 Dose: 1 oin Glucagon (Glucagen Diagnostic Kit) 0 mg IM STAT PRN; Protocol PRN Reason: Hypoglycemia Protocol Hydrocortisone (Cortizone 1% Cream) 0 gm TOP TID PRN PRN Reason: Rash Hydromorphone HCl (Dilaudid) 1 mg IVP Q3 PRN PRN Reason: Pain, SEVERE (8-10) Last Admin: 07/01/18 08:43 Dose: 1 mg Vancomycin HCl 1,500 mg/ (Sodium Chloride) 500 mls @ 166.6 mls/hr IVPB Q12H [facility] PRN Reason: Protocol Last Admin: 07/01/18 04:10 Dose: 166.6 mls/hr Meropenem 1 gm/ Sodium (Chloride) 100 mls @ 100 mls/hr IVPB Q8H [facility] PRN Reason: Protocol Last Admin: 07/01/18 08:42 Dose: 100 mls/hr Insulin Human Regular (Novolin R) 0 unit SC ACHS [facility] PRN Reason: Protocol Last Admin: 07/01/18 07:25 Dose: Not Given Ipratropium [place] (Atrovent) 0.5 mg IH RQ6 [facility] Last Admin: 07/01/18 07:58 Dose: 0.5 mg Lactobacillus Acidophilus (Bacid Acidophilus) 1 cap PEG BID [facility] Last Admin: 07/01/18 10:11 Dose: 1 cap Loperamide HCl (Imodium) 1 mg PO Q2H PRN PRN Reason: Diarrhea Last Admin: 07/01/18 10:11 Dose: 1 mg Lorazepam (Ativan) 1 mg IVP BID [facility] Last Admin: 07/01/18 10:10 Dose: 1 mg Metoprolol Tartrate (Lopressor) 12.5 mg PEG BID [facility] Last Admin: 07/01/18 10:11 Dose: 12.5 mg Nicotine (Nicoderm Cq) 1 patch TD DAILY [facility] Last Admin: 07/01/18 10:13 Dose: 1 patch Ondansetron HCl (Zofran Inj) 4 mg IVP Q6H PRN PRN Reason: Nausea/Vomiting Last Admin: 06/30/18 20:42 Dose: 4 mg Pantoprazole Sodium (Protonix Susp) 40 mg PO DAILY [facility] Last Admin: 07/01/18 10:10 Dose: 40 mg Saliva Substitute (Mouth Kote 236 Ml) 0 ml MM Q6 PRN PRN Reason: Dry mouth Vitamin A (Vitamin A & D Oint Ud Foilpak) 1 ea TOP Q8 PRN PRN Reason: dry lips Vitamin E (Vitamin E 400 Units Cap) 400 intlu GT DAILY [facility] Last Admin: 07/01/18 10:11 Dose: 400 intlu - Labs Labs: 06/30/18 06:33 06/30/18 07:16 PT 14.3 SECONDS (9.7-12.2) H 06/10/18 07:05 INR 1.3 06/10/18 07:05 APTT 33 SECONDS (21-34) 05/25/18 06:16 - Constitutional Appears: Non-toxic, No Acute Distress - Head Exam Head Exam: ATRAUMATIC, NORMOCEPHALIC - Eye Exam Eye Exam: EOMI, Normal appearance, PERRL - ENT Exam ENT Exam: Mucous Membranes Moist - Respiratory Exam Respiratory Exam: Clear to Ausculation Bilateral, NORMAL BREATHING PATTERN - Cardiovascular Exam Cardiovascular Exam: REGULAR RHYTHM, +S1, +S2 - GI/Abdominal Exam GI & Abdominal Exam: Soft, Normal Bowel Sounds. absent: Distended, Firm, Rigid , Tenderness Additional comments: Gastrostomy tube in place - Extremities Exam Extremities Exam: Full ROM, Normal Capillary Refill, Normal Inspection. absent : Calf Tenderness, Pedal Edema - Neurological Exam Neurological Exam: Alert, Awake, CN II-XII Intact, Oriented x3 - Psychiatric Exam Psychiatric exam: Normal Affect, Normal Mood - Skin Skin Exam: Dry, Intact, Normal Color, Warm Assessment and Plan - Assessment and Plan (Free Text) Assessment: 38F PMHx chronic abd pain, gastric bypass, s/p debridement of bowel x2 for internal hernia, with iron-deficiency anemia. Plan: Iron-deficiency anemia -2/2 malabsorption from gastric bypass surgery -Hgb 9.0 yesterday, continue to trend -F/u repeat ferritin level Further recs as per Dr. Cash, attending. Morris Connolly, PGY-1
--- NOTE | 2018-07-01 21:06 | CP.PCM.PN ---
Subjective - Date & Time of Evaluation Date of Evaluation: 07/01/18 Time of Evaluation: 14:30 - Subjective Subjective: dictated Objective - Vital Signs/Intake and Output Vital Signs (last 24 hours): Temp Pulse Resp BP Pulse Ox 99 F 95 H 18 119/80 95 07/01/18 15:48 07/01/18 15:48 07/01/18 15:48 07/01/18 15:48 07/01/18 15:48 Intake and Output: 07/01/18 07/02/18 18:59 06:59 Intake Total 443 Output Total 185 Balance 258 - Medications Medications: Current Medications Acetaminophen (Tylenol 650mg/20.3ml Solution Ud) 975 mg GT Q8H PRN PRN Reason: Pain, Mild (1-3) Calcium Acetate (Phoslo) 667 mg GT TIDCC [facility] Last Admin: 07/01/18 18:19 Dose: 667 mg Cholestyramine Resin (Questran) 4 gm PO BID [facility] Last Admin: 07/01/18 18:21 Dose: 4 gm Dextrose (Dextrose 50% Inj) 0 ml IV STAT PRN; Protocol PRN Reason: Hypoglycemia Protocol Dextrose (Glutose 15) 0 gm PO ONCE PRN; Protocol PRN Reason: Hypoglycemia Protocol Enoxaparin Sodium (Lovenox) 40 mg SC DAILY [facility] Last Admin: 07/01/18 10:11 Dose: 40 mg Ergocalciferol (Drisdol 50,000 Intl Units Cap) 1 cap PO Q7D [facility] Stop: 07/20/18 10:01 Last Admin: 06/29/18 10:46 Dose: 1 cap Escitalopram Oxalate (Lexapro) 10 mg GT DAILY [facility] Last Admin: 07/01/18 10:10 Dose: 10 mg Gentamicin Sulfate (Gentamicin 0.1%) 0 gm TOP TID [facility] Last Admin: 07/01/18 18:22 Dose: 1 oin Glucagon (Glucagen Diagnostic Kit) 0 mg IM STAT PRN; Protocol PRN Reason: Hypoglycemia Protocol Hydrocortisone (Cortizone 1% Cream) 0 gm TOP TID PRN PRN Reason: Rash Hydromorphone HCl (Dilaudid) 1 mg IVP Q3 PRN PRN Reason: Pain, SEVERE (8-10) Last Admin: 07/01/18 20:46 Dose: 1 mg Vancomycin HCl 1,500 mg/ (Sodium Chloride) 500 mls @ 166.6 mls/hr IVPB Q12H [facility] PRN Reason: Protocol Last Admin: 07/01/18 18:22 Dose: 166.6 mls/hr Meropenem 1 gm/ Sodium (Chloride) 100 mls @ 100 mls/hr IVPB Q8H [facility] PRN Reason: Protocol Last Admin: 07/01/18 14:44 Dose: 100 mls/hr Insulin Human Regular (Novolin R) 0 unit SC ACHS [facility] PRN Reason: Protocol Last Admin: 07/01/18 18:20 Dose: Not Given Ipratropium [place] (Atrovent) 0.5 mg IH RQ6 [facility] Last Admin: 07/01/18 19:31 Dose: 0.5 mg Lactobacillus Acidophilus (Bacid Acidophilus) 1 cap PEG BID [facility] Last Admin: 07/01/18 18:19 Dose: 1 cap Loperamide HCl (Imodium) 1 mg PO Q2H PRN PRN Reason: Diarrhea Last Admin: 07/01/18 18:31 Dose: 1 mg Lorazepam (Ativan) 1 mg IVP BID [facility] Last Admin: 07/01/18 18:19 Dose: 1 mg Metoprolol Tartrate (Lopressor) 12.5 mg PEG BID [facility] Last Admin: 07/01/18 18:19 Dose: 12.5 mg Nicotine (Nicoderm Cq) 1 patch TD DAILY [facility] Last Admin: 07/01/18 10:13 Dose: 1 patch Ondansetron HCl (Zofran Inj) 4 mg IVP Q6H PRN PRN Reason: Nausea/Vomiting Last Admin: 06/30/18 20:42 Dose: 4 mg Pantoprazole Sodium (Protonix Susp) 40 mg PO DAILY [facility] Last Admin: 07/01/18 10:10 Dose: 40 mg Saliva Substitute (Mouth Kote 236 Ml) 0 ml MM Q6 PRN PRN Reason: Dry mouth Vitamin A (Vitamin A & D Oint Ud Foilpak) 1 ea TOP Q8 PRN PRN Reason: dry lips Vitamin E (Vitamin E 400 Units Cap) 400 intlu GT DAILY [facility] Last Admin: 07/01/18 10:11 Dose: 400 intlu - Labs Labs: 06/30/18 06:33 06/30/18 07:16 PT 14.3 SECONDS (9.7-12.2) H 06/10/18 07:05 INR 1.3 06/10/18 07:05 APTT 33 SECONDS (21-34) 05/25/18 06:16
--- NOTE | 2018-07-02 00:55 | PN ---
DATE: 07/01/2018 SUBJECTIVE: The patient was awake, alert. She offered no new complaints. She is getting IV antibiotics. She remains afebrile. PHYSICAL EXAMINATION: HEENT: Head is atraumatic. NECK: She has NG tube. LUNGS: Clear. HEART: S1 and S2 are regular. ABDOMEN: Soft, nontender. She does have a wound VAC attached. She has a jejunotomy tube. They have been applying gentamicin to the site of the jejunotomy tube. EXTREMITIES: Have no edema. ASSESSMENT AND PLAN: She is patiently waiting for her neck surgery, which would be decided by the surgical team. At this time, I will continue both the antibiotics, vancomycin and meropenem. Guero Rivera MD
[2018-07-02] MEDS: Ipratropium 0.02% Inhal Soln (0.5 mg/2.5 ml) UD IH SCH ×4 (01:40→19:25)
--- NOTE | 2018-07-02 02:36 | CP.PCM.PN ---
<Don Wilson - Last Filed: 07/02/18 08:13> Subjective - Date & Time of Evaluation Date of Evaluation: 07/02/18 Time of Evaluation: 02:30 - Subjective Subjective: PGY-1 Medicine Progress Note for Dr. Castillo Patient was seen and examined at bedside, resting comfortably and in no acute distress. Has had difficulty sleeping the past two days, otherwise no acute complaints. Denies chest pain, shortness of breath, sore throat, dizziness, headache, numbness, weakness, cough, wheezing, fever, chills. Objective - Vital Signs/Intake and Output Vital Signs (last 24 hours): Temp Pulse Resp BP Pulse Ox 98 F 88 20 119/78 96 07/01/18 23:20 07/01/18 23:20 07/01/18 23:20 07/01/18 23:20 07/01/18 23:20 Intake and Output: 07/01/18 07/02/18 18:59 06:59 Intake Total 443 Output Total 185 Balance 258 - Medications Medications: Current Medications Acetaminophen (Tylenol 650mg/20.3ml Solution Ud) 975 mg GT Q8H PRN PRN Reason: Pain, Mild (1-3) Calcium Acetate (Phoslo) 667 mg GT TIDCC [facility] Last Admin: 07/01/18 18:19 Dose: 667 mg Cholestyramine Resin (Questran) 4 gm PO BID [facility] Last Admin: 07/01/18 18:21 Dose: 4 gm Dextrose (Dextrose 50% Inj) 0 ml IV STAT PRN; Protocol PRN Reason: Hypoglycemia Protocol Dextrose (Glutose 15) 0 gm PO ONCE PRN; Protocol PRN Reason: Hypoglycemia Protocol Enoxaparin Sodium (Lovenox) 40 mg SC DAILY [facility] Last Admin: 07/01/18 10:11 Dose: 40 mg Ergocalciferol (Drisdol 50,000 Intl Units Cap) 1 cap PO Q7D [facility] Stop: 07/20/18 10:01 Last Admin: 06/29/18 10:46 Dose: 1 cap Escitalopram Oxalate (Lexapro) 10 mg GT DAILY [facility] Last Admin: 07/01/18 10:10 Dose: 10 mg Gentamicin Sulfate (Gentamicin 0.1%) 0 gm TOP TID [facility] Last Admin: 07/01/18 18:22 Dose: 1 oin Glucagon (Glucagen Diagnostic Kit) 0 mg IM STAT PRN; Protocol PRN Reason: Hypoglycemia Protocol Hydrocortisone (Cortizone 1% Cream) 0 gm TOP TID PRN PRN Reason: Rash Hydromorphone HCl (Dilaudid) 1 mg IVP Q3 PRN PRN Reason: Pain, SEVERE (8-10) Last Admin: 07/01/18 23:45 Dose: 1 mg Vancomycin HCl 1,500 mg/ (Sodium Chloride) 500 mls @ 166.6 mls/hr IVPB Q12H [facility] PRN Reason: Protocol Last Admin: 07/01/18 18:22 Dose: 166.6 mls/hr Meropenem 1 gm/ Sodium (Chloride) 100 mls @ 100 mls/hr IVPB Q8H [facility] PRN Reason: Protocol Last Admin: 07/01/18 22:45 Dose: 100 mls/hr Insulin Human Regular (Novolin R) 0 unit SC ACHS [facility] PRN Reason: Protocol Last Admin: 07/01/18 21:35 Dose: Not Given Ipratropium [place] (Atrovent) 0.5 mg IH RQ6 [facility] Last Admin: 07/01/18 19:31 Dose: 0.5 mg Lactobacillus Acidophilus (Bacid Acidophilus) 1 cap PEG BID [facility] Last Admin: 07/01/18 18:19 Dose: 1 cap Loperamide HCl (Imodium) 1 mg PO Q2H PRN PRN Reason: Diarrhea Last Admin: 07/01/18 18:31 Dose: 1 mg Lorazepam (Ativan) 1 mg IVP BID [facility] Last Admin: 07/01/18 18:19 Dose: 1 mg Metoprolol Tartrate (Lopressor) 12.5 mg PEG BID [facility] Last Admin: 07/01/18 18:19 Dose: 12.5 mg Nicotine (Nicoderm Cq) 1 patch TD DAILY [facility] Last Admin: 07/01/18 10:13 Dose: 1 patch Ondansetron HCl (Zofran Inj) 4 mg IVP Q6H PRN PRN Reason: Nausea/Vomiting Last Admin: 06/30/18 20:42 Dose: 4 mg Pantoprazole Sodium (Protonix Susp) 40 mg PO DAILY [facility] Last Admin: 07/01/18 10:10 Dose: 40 mg Saliva Substitute (Mouth Kote 236 Ml) 0 ml MM Q6 PRN PRN Reason: Dry mouth Vitamin A (Vitamin A & D Oint Ud Foilpak) 1 ea TOP Q8 PRN PRN Reason: dry lips Vitamin E (Vitamin E 400 Units Cap) 400 intlu GT DAILY [facility] Last Admin: 07/01/18 10:11 Dose: 400 intlu - Labs Labs: 06/30/18 06:33 06/30/18 07:16 PT 14.3 SECONDS (9.7-12.2) H 06/10/18 07:05 INR 1.3 06/10/18 07:05 APTT 33 SECONDS (21-34) 05/25/18 06:16 - Constitutional Appears: Non-toxic, No Acute Distress, Chronically Ill - Head Exam Head Exam: ATRAUMATIC, NORMAL INSPECTION, NORMOCEPHALIC - Eye Exam Eye Exam: EOMI, Normal appearance Pupil Exam: NORMAL ACCOMODATION - ENT Exam ENT Exam: Mucous Membranes Moist, Normal Exam - Neck Exam Neck Exam: Full ROM, Normal Inspection - Respiratory Exam Respiratory Exam: Clear to Ausculation Bilateral, NORMAL BREATHING PATTERN. absent: Rales, Rhonchi, Wheezes - Cardiovascular Exam Cardiovascular Exam: REGULAR RHYTHM, +S1, +S2 - GI/Abdominal Exam GI & Abdominal Exam: Soft, Normal Bowel Sounds Additional comments: wound vac in place clean/dry/intact, Gtube in place clean/dry/intact - Extremities Exam Extremities Exam: Full ROM, Normal Capillary Refill, Normal Inspection Additional comments: peripheral pulses palpable (radial, PT, DP) R PICC in place - Back Exam Back Exam: NORMAL INSPECTION - Neurological Exam Neurological Exam: Alert, Awake, Normal Gait, Oriented x3 - Psychiatric Exam Psychiatric exam: Normal Affect, Normal Mood - Skin Skin Exam: Dry, Intact, Normal Color, Warm Assessment and Plan - Assessment and Plan (Free Text) Assessment: 38F with a PMH of HTN, HLD, DM2, asthma s/p bowel resection (05/14, 05/16) 2/2 internal hernia s/p [id number] gastric bypass in 2013 admitted for medical optimization prior to reversal of bypass. 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 Harley (surgery) on the case - Wound vac to continuous suction - replaced on 06/22 by surgery - Dr. Cash ([facility] onc) consulted for Fe status - appreciated recommendations * Iron 17, TIBC 238, % sat 7, ferritin 14.5, retic 3.2 Other cultures: New (06/22/18): abdominal incision: Pseudomonas Aeruginosa sensitive to Meropenem New (06/22/18): Peg site: Pseudomonas Aeruginosa sensitive to Meropenem Peritoneal Fluid (05/14/18): Pseudomonas Aeruginosa sensitive to Meropenem Wound Culture (05/23/18): Yudith Albicans Blood Culture (05/15/18, 05/22/18): no growth Urine Culture (05/22/18): no growth Incision Site (05/31/18): Enterococcus faecalis, Acinetobacter baumannii Stool Cultures (06/03/18): No salmonella, shigella, or campylobacteria isolates Repeat wound culture (06/13/18): Coag neg Staph, enterococcus raffinosus Antibiotics: Continue Meropenem 1g Q8H IVPB Continue Vancomycin 1gm IV Q12Hr (started 06/16 @ 12pm), goal vanc trough 15-20 Discontinued Cipro 400 mg IV q12hrs (started 06/02, last day 06/16/18) Completed Flagyl 500mg IVPB q8hrs (active since 05/15/18-06/19/18) Measure vitamin levels and replace as needed: Vit D <12.8- vid D 50,000 unites q1wk x8 wks B12 707, wnl Folate 12.6, wnl Vit A 42, wnl Alpha Vit E 5.6, wnl Vit A, B1, B6, E levels reordered on 06/15. - VitB1: inappropriately submitted, 06/01 value acceptable - VitB6: 5.9, wnl - Tabitha, E collected Medication: Continue Tylenol 975 mg liq q8hrs Continue Dilaudad 1mg IV q3hrs PRN Continue Zofran 4mg IV q6hrs PRN Tachycardia, persistent (110s-130s)- possibly etiologies include pain, infection , anxiety -She is being treated for Left G Tube fluid infection. -Continue Ativan PRN -Continue Dilaudid on board to be used PRN. -Continue Metoprolol tartrate 5mg IV q6hrs with holding parameters (SBP <100, HR <60) Diarrhea, acute, improving- suspect secondary to PO intake by pt -C.Diff (05/22, 05/24, 05/28): negative -Stool O&P (05/25/18): negative -Stool leukocytes (05/25/18): negative -per ID continue Flagyl due to leak around wound vac -Imodium 1mg PO Q2H PRN Anxiety -[employer] consulted- pt initially refused but then accepted -Psychiatry consulted (Dr. Reyez)- managing Ativan -Continue Ativan 1mg IV BID -Continue Lexapro 10mg GT daily (started 05/31) Insomnia - Discontinue, Benadryl 25 mg IVP HS PRN, clinically not indicated Anemia, acute, stable, pt denies blood in stool -Patient received a total of 2 PRBC (on 05/16) and 4 FFP (on 05/15 and 05/16) -Iron 16, TIBC 205, %sat 4.7, ferritin 75.3 -Monitor CBC Q2D Thrombocytosis, improving (504)- suspect reactive to pain, surgery- Resolved -Monitory CBC Q2D Diabetes Mellitus, Type 2- controlled -From prior note: Admittedly non-compliant, has not taken Januvia for one year -Accuchecks q6hrs -Hypoglycemic protocol -ISS regular -HbA1c 5.8 -History of gastric bypass surgery Hypercholesterolemia- untreated - LDL <30, HDL 23, Chol 59, TG 195 (06/03/18) - History of gastric bypass surgery - Questran 4gm PO BID History of Hypertension, controlled - Since gastric bypass has not taken meds - Metoprolol 5mg IV q6hrs History of Asthma- Chronic - Atrovent q6hrs Nicotine use disorder- Chronic - From prior note: 1ppd x 20 yrs, 1/2ppd x3 yrs - Continue Nicoderm 1 patch TD QD Electrolyte Imbalance: hypokalemia, hypomagnesemia - resolved - Continue to monitor with AM labs, replete as needed Prophylaxis, Diet, Disposition -Hydrocortisone 1% Cream topical TID for Right Upper Inner Arm macular rash- improved -Vitamin A&D topical q8hrs PRN for dry lips -Saliva substitute q6hrs PRN for dry mouth -IVF: not indicated -VTE ppx: Lovenox 40mg SC daily, SCDs; encourage ambulation -GI ppx: Protonix 40mg IV BID, Florastor BID -Code status: full code -Dispo: PT consulted: working with patient daily, rec home PT with services. Will stay at [facility] until bypass reversal surgery. Pending Dr. Mccray recs. Case to be discussed with Dr. Anna Wilson DO, PGY-1 <Lena Castillo - Last Filed: 07/02/18 16:27> Objective - Vital Signs/Intake and Output Vital Signs (last 24 hours): Temp Pulse Resp BP Pulse Ox 98.5 F 87 20 137/94 H 96 07/02/18 08:06 07/02/18 12:25 07/02/18 08:06 07/02/18 12:25 07/02/18 08:06 Intake and Output: 07/02/18 07/02/18 06:59 18:59 Intake Total 1550 Output Total 350 Balance 1200 - Medications Medications: Current Medications Acetaminophen (Tylenol 650mg/20.3ml Solution Ud) 975 mg GT Q8H PRN PRN Reason: Pain, Mild (1-3) Calcium Acetate (Phoslo) 667 mg GT TIDCC [facility] Last Admin: 07/02/18 12:04 Dose: 667 mg Cholestyramine Resin (Questran) 4 gm PO BID [facility] Last Admin: 07/02/18 09:34 Dose: 4 gm Dextrose (Dextrose 50% Inj) 0 ml IV STAT PRN; Protocol PRN Reason: Hypoglycemia Protocol Dextrose (Glutose 15) 0 gm PO ONCE PRN; Protocol PRN Reason: Hypoglycemia Protocol Enoxaparin Sodium (Lovenox) 40 mg SC DAILY [facility] Last Admin: 07/02/18 09:21 Dose: 40 mg Ergocalciferol (Drisdol 50,000 Intl Units Cap) 1 cap PO Q7D [facility] Stop: 07/20/18 10:01 Last Admin: 06/29/18 10:46 Dose: 1 cap Escitalopram Oxalate (Lexapro) 10 mg GT DAILY [facility] Last Admin: 07/02/18 09:33 Dose: 10 mg Gentamicin Sulfate (Gentamicin 0.1%) 0 gm TOP TID [facility] Last Admin: 07/02/18 13:52 Dose: 1 oin Glucagon (Glucagen Diagnostic Kit) 0 mg IM STAT PRN; Protocol PRN Reason: Hypoglycemia Protocol Hydrocortisone (Cortizone 1% Cream) 0 gm TOP TID PRN PRN Reason: Rash Hydromorphone HCl (Dilaudid) 1 mg IVP Q3 PRN PRN Reason: Pain, SEVERE (8-10) Last Admin: 07/02/18 15:54 Dose: 1 mg Vancomycin HCl 1,500 mg/ (Sodium Chloride) 500 mls @ 166.6 mls/hr IVPB Q12H [facility] PRN Reason: Protocol Last Admin: 07/02/18 04:50 Dose: 166.6 mls/hr Meropenem 1 gm/ Sodium (Chloride) 100 mls @ 100 mls/hr IVPB Q8H [facility] PRN Reason: Protocol Last Admin: 07/02/18 15:54 Dose: 100 mls/hr Insulin Human Regular (Novolin R) 0 unit SC ACHS [facility] PRN Reason: Protocol Last Admin: 07/02/18 11:53 Dose: Not Given Ipratropium [place] (Atrovent) 0.5 mg IH RQ6 [facility] Last Admin: 07/02/18 13:08 Dose: 0.5 mg Lactobacillus Acidophilus (Bacid Acidophilus) 1 cap PEG BID [facility] Last Admin: 07/02/18 09:33 Dose: 1 cap Loperamide HCl (Imodium) 1 mg PO Q2H PRN PRN Reason: Diarrhea Last Admin: 07/02/18 09:34 Dose: 1 mg Lorazepam (Ativan) 1 mg IVP BID [facility] Last Admin: 07/02/18 09:22 Dose: 1 mg Metoprolol Tartrate (Lopressor) 12.5 mg PEG BID [facility] Last Admin: 07/02/18 09:33 Dose: 12.5 mg Nicotine (Nicoderm Cq) 1 patch TD DAILY [facility] Last Admin: 07/02/18 09:33 Dose: 1 patch Ondansetron HCl (Zofran Inj) 4 mg IVP Q6H PRN PRN Reason: Nausea/Vomiting Last Admin: 06/30/18 20:42 Dose: 4 mg Pantoprazole Sodium (Protonix Susp) 40 mg PO DAILY [facility] Last Admin: 07/02/18 09:21 Dose: 40 mg Saliva Substitute (Mouth Kote 236 Ml) 0 ml MM Q6 PRN PRN Reason: Dry mouth Vitamin A (Vitamin A & D Oint Ud Foilpak) 1 ea TOP Q8 PRN PRN Reason: dry lips Vitamin E (Vitamin E 400 Units Cap) 400 intlu GT DAILY [facility] Last Admin: 07/02/18 09:33 Dose: 400 intlu - Labs Labs: 07/02/18 04:52 07/02/18 04:52 PT 14.3 SECONDS (9.7-12.2) H 06/10/18 07:05 INR 1.3 06/10/18 07:05 APTT 33 SECONDS (21-34) 05/25/18 06:16 Attending/Attestation - Attestation I have personally seen and examined this patient.: Yes I have fully participated in the care of the patient.: Yes I have reviewed all pertinent clinical information, including history, physical exam and plan: Yes Notes (Text): Seen and examined by me this morning.lying on bed without discomfort Her abdominal pain is better. Her Bowel movements are improving/less frequent than before on examination her abdomen is soft and nontender.Wound vac and PEG in place.Lungs clear We will continue her Vancomycin and Meropenem.Her vancomycin trough level is 14 Dr Rivera's follow up noted Magnesium and K replaced I agree with the documentation of the resident's assessment and the plan
[2018-07-02 04:55] LABS: BASO # 0.1 K/uL (0.0-0.2); BASO % 1.1 % (0.0-2.0); EOS # 0.5 K/uL (0.0-0.7); EOS % 7.1 % (0.0-4.0); HEMOGLOBIN 8.6 g/dL (11.0-16.0); LYMPH # 1.6 K/uL (1.0-4.3); LYMPH % 23.6 % (20.0-40.0); MEAN CELL VOLUME 87.7 fL (81.0-99.0); MEAN CORPUSCULAR HEMOGLOBIN 28.5 pg (27.0-31.0); MEAN CORPUSCULAR HGB CONC 32.5 g/dL (33.0-37.0); MEAN PLATELET VOLUME 7.1 fL (7.2-11.7); MONO # 0.5 K/uL (0.0-0.8); MONO % 7.4 % (0.0-10.0); NEUT # 4.2 K/uL (1.8-7.0); NEUT % 60.8 % (50.0-75.0); RED CELL DISTRIBUTION WIDTH 19.6 % (11.5-14.5); WHITE BLOOD COUNT 6.9 K/uL (4.8-10.8)
[2018-07-02 05:20] LABS: ALB/GLOB RATIO 0.9 (1.0-2.1); ALBUMIN 2.4 g/dL (3.5-5.0); ALT/SGPT 18 U/L (9-52); AST/SGOT 13 U/L (14-36); BLOOD UREA NITROGEN 3 mg/dL (7-17); GFR NON-AFRICAN AMERICAN > 60
[2018-07-02] MEDS: (Novolin R) Insulin Human Regular 100 units/ml vial SC SCH ×4 (07:20→21:03)
[2018-07-02] MEDS: Meropenem 1 GM in Sodium Chloride 0.9% 100 ML IVPB SCH ×3 (08:12→22:41)
[2018-07-02] MEDS: Enoxaparin 40 mg Syringe SC SCH (09:21)
[2018-07-02] MEDS: Pantoprazole 40 mg Susp UD PO SCH (09:21)
[2018-07-02] MEDS: Lactobacillus Acidophilus 500 MU Cap PEG SCH ×2 (09:33→18:12)
[2018-07-02] MEDS: GENTAMICIN 0.1% TOP SCH ×3 (09:34→18:13)
[2018-07-02] MEDS: Cholestyramine 4 gm/Pkt UD PO SCH ×2 (09:34→18:13)
[2018-07-02] MEDS: Loperamide Hydrochloride 1 mg/5 ml Cup PO PRN (09:34)
[2018-07-02] MEDS ORDERED: Magnesium Sulfate 1 gm in D5W 1 GM/100 ML BAG IVPB STA (11:25)
[2018-07-02] MEDS ORDERED: Magnesium Sulfate 1 gm in D5W 1 GM/100 ML BAG IVPB ONE (12:00)
--- NOTE | 2018-07-02 18:50 | CP.PCM.PN ---
Subjective - Date & Time of Evaluation Date of Evaluation: 07/02/18 Time of Evaluation: 17:00 - Subjective Subjective: dictated Objective - Vital Signs/Intake and Output Vital Signs (last 24 hours): Temp Pulse Resp BP Pulse Ox 98.4 F 95 H 20 124/85 98 07/02/18 15:35 07/02/18 15:35 07/02/18 15:35 07/02/18 15:35 07/02/18 15:35 Intake and Output: 07/02/18 07/02/18 06:59 18:59 Intake Total 1550 Output Total 350 Balance 1200 - Medications Medications: Current Medications Acetaminophen (Tylenol 650mg/20.3ml Solution Ud) 975 mg GT Q8H PRN PRN Reason: Pain, Mild (1-3) Calcium Acetate (Phoslo) 667 mg GT TIDCC [facility] Last Admin: 07/02/18 18:13 Dose: 667 mg Cholestyramine Resin (Questran) 4 gm PO BID [facility] Last Admin: 07/02/18 18:13 Dose: 4 gm Dextrose (Dextrose 50% Inj) 0 ml IV STAT PRN; Protocol PRN Reason: Hypoglycemia Protocol Dextrose (Glutose 15) 0 gm PO ONCE PRN; Protocol PRN Reason: Hypoglycemia Protocol Enoxaparin Sodium (Lovenox) 40 mg SC DAILY [facility] Last Admin: 07/02/18 09:21 Dose: 40 mg Ergocalciferol (Drisdol 50,000 Intl Units Cap) 1 cap PO Q7D [facility] Stop: 07/20/18 10:01 Last Admin: 06/29/18 10:46 Dose: 1 cap Escitalopram Oxalate (Lexapro) 10 mg GT DAILY [facility] Last Admin: 07/02/18 09:33 Dose: 10 mg Gentamicin Sulfate (Gentamicin 0.1%) 0 gm TOP TID [facility] Last Admin: 07/02/18 18:13 Dose: 1 oin Glucagon (Glucagen Diagnostic Kit) 0 mg IM STAT PRN; Protocol PRN Reason: Hypoglycemia Protocol Hydrocortisone (Cortizone 1% Cream) 0 gm TOP TID PRN PRN Reason: Rash Hydromorphone HCl (Dilaudid) 1 mg IVP Q3 PRN PRN Reason: Pain, SEVERE (8-10) Last Admin: 07/02/18 15:54 Dose: 1 mg Vancomycin HCl 1,500 mg/ (Sodium Chloride) 500 mls @ 166.6 mls/hr IVPB Q12H [facility] PRN Reason: Protocol Last Admin: 07/02/18 18:11 Dose: 166.6 mls/hr Meropenem 1 gm/ Sodium (Chloride) 100 mls @ 100 mls/hr IVPB Q8H [facility] PRN Reason: Protocol Last Admin: 07/02/18 15:54 Dose: 100 mls/hr Insulin Human Regular (Novolin R) 0 unit SC ACHS [facility] PRN Reason: Protocol Last Admin: 07/02/18 18:12 Dose: Not Given Ipratropium [place] (Atrovent) 0.5 mg IH RQ6 [facility] Last Admin: 07/02/18 13:08 Dose: 0.5 mg Lactobacillus Acidophilus (Bacid Acidophilus) 1 cap PEG BID [facility] Last Admin: 07/02/18 18:12 Dose: 1 cap Loperamide HCl (Imodium) 1 mg PO Q2H PRN PRN Reason: Diarrhea Last Admin: 07/02/18 09:34 Dose: 1 mg Lorazepam (Ativan) 1 mg IVP BID [facility] Last Admin: 07/02/18 18:12 Dose: 1 mg Metoprolol Tartrate (Lopressor) 12.5 mg PEG BID [facility] Last Admin: 07/02/18 18:12 Dose: 12.5 mg Nicotine (Nicoderm Cq) 1 patch TD DAILY [facility] Last Admin: 07/02/18 09:33 Dose: 1 patch Ondansetron HCl (Zofran Inj) 4 mg IVP Q6H PRN PRN Reason: Nausea/Vomiting Last Admin: 06/30/18 20:42 Dose: 4 mg Pantoprazole Sodium (Protonix Susp) 40 mg PO DAILY [facility] Last Admin: 07/02/18 09:21 Dose: 40 mg Saliva Substitute (Mouth Kote 236 Ml) 0 ml MM Q6 PRN PRN Reason: Dry mouth Vitamin A (Vitamin A & D Oint Ud Foilpak) 1 ea TOP Q8 PRN PRN Reason: dry lips Vitamin E (Vitamin E 400 Units Cap) 400 intlu GT DAILY [facility] Last Admin: 07/02/18 09:33 Dose: 400 intlu - Labs Labs: 07/02/18 04:52 07/02/18 04:52 PT 14.3 SECONDS (9.7-12.2) H 06/10/18 07:05 INR 1.3 06/10/18 07:05 APTT 33 SECONDS (21-34) 05/25/18 06:16
--- NOTE | 2018-07-02 22:19 | PN ---
DATE: 07/02/2018 SUBJECTIVE: The patient was seen today. She was awake and alert. She says she almost 8 weeks. She wants her surgery done next week. She offers no new complaints. She remains on jejunostomy feeding and she still has an NG tube. OBJECTIVE: VITAL SIGNS: Stable. HEENT: Head is atraumatic, normocephalic. NECK: Supple. LUNGS: Clear. HEART: S1, S2 regular. ABDOMEN: Soft. Has a wound VAC attached and has a jejunostomy tube, feeding was going through it. EXTREMITIES: Have no edema. Her white count is 6.9, hemoglobin 8.6, hematocrit 26.3, platelet count is 237. Potassium is 3.4, creatinine 0.3. She still remains on IV antibiotics, and she had Pseudomonas, last on 06/22, and she has been on the treatment. We will continue those for 10 days , so we will look into it, and we are waiting for the surgical plan. The patient had ischemic colitis and status post bypass surgery before and had a necrotizing ischemic colitis, and she needs reconnection of her bowel. Guero Rivera MD
[2018-07-03] MEDS: Ipratropium 0.02% Inhal Soln (0.5 mg/2.5 ml) UD IH SCH ×4 (01:32→20:01)
--- NOTE | 2018-07-03 07:14 | CP.PCM.PN ---
<Don Wilson - Last Filed: 07/03/18 07:11> Subjective - Date & Time of Evaluation Date of Evaluation: 07/03/18 Time of Evaluation: 07:11 - Subjective Subjective: PGY-1 Medicine Progress Note for Dr. Turk Patient was seen and examined at bedside, resting comfortably and in no acute distress. No acute complaints. Denies chest pain, shortness of breath, sore throat, dizziness, headache, numbness, weakness, cough, wheezing, fever, chills. Objective - Vital Signs/Intake and Output Vital Signs (last 24 hours): Temp Pulse Resp BP Pulse Ox 98.5 F 98 H 20 121/79 97 07/03/18 04:28 07/03/18 04:28 07/03/18 04:28 07/03/18 04:28 07/03/18 04:28 Intake and Output: 07/03/18 07/03/18 06:59 18:59 Intake Total 700 Output Total 300 Balance 400 - Medications Medications: Current Medications Acetaminophen (Tylenol 650mg/20.3ml Solution Ud) 975 mg GT Q8H PRN PRN Reason: Pain, Mild (1-3) Calcium Acetate (Phoslo) 667 mg GT TIDCC [facility] Last Admin: 07/02/18 18:13 Dose: 667 mg Cholestyramine Resin (Questran) 4 gm PO BID [facility] Last Admin: 07/02/18 18:13 Dose: 4 gm Dextrose (Dextrose 50% Inj) 0 ml IV STAT PRN; Protocol PRN Reason: Hypoglycemia Protocol Dextrose (Glutose 15) 0 gm PO ONCE PRN; Protocol PRN Reason: Hypoglycemia Protocol Enoxaparin Sodium (Lovenox) 40 mg SC DAILY [facility] Last Admin: 07/02/18 09:21 Dose: 40 mg Ergocalciferol (Drisdol 50,000 Intl Units Cap) 1 cap PO Q7D [facility] Stop: 07/20/18 10:01 Last Admin: 06/29/18 10:46 Dose: 1 cap Escitalopram Oxalate (Lexapro) 10 mg GT DAILY [facility] Last Admin: 07/02/18 09:33 Dose: 10 mg Gentamicin Sulfate (Gentamicin 0.1%) 0 gm TOP TID [facility] Last Admin: 07/02/18 18:13 Dose: 1 oin Glucagon (Glucagen Diagnostic Kit) 0 mg IM STAT PRN; Protocol PRN Reason: Hypoglycemia Protocol Hydrocortisone (Cortizone 1% Cream) 0 gm TOP TID PRN PRN Reason: Rash Hydromorphone HCl (Dilaudid) 1 mg IVP Q3 PRN PRN Reason: Pain, SEVERE (8-10) Last Admin: 07/03/18 07:01 Dose: 1 mg Vancomycin HCl 1,500 mg/ (Sodium Chloride) 500 mls @ 166.6 mls/hr IVPB Q12H KAT[facility]N PRN Reason: Protocol Last Admin: 07/03/18 04:00 Dose: 166.6 mls/hr Meropenem 1 gm/ Sodium (Chloride) 100 mls @ 100 mls/hr IVPB Q8H KATELNY PRN Reason: Protocol Last Admin: 07/02/18 22:41 Dose: 100 mls/hr Insulin Human Regular (Novolin R) 0 unit SC ACHS K[facility]N PRN Reason: Protocol Last Admin: 07/02/18 21:03 Dose: Not Given Ipratropium [place] (Atrovent) 0.5 mg IH RQ6 [facility] Last Admin: 07/03/18 01:32 Dose: Not Given Lactobacillus Acidophilus (Bacid Acidophilus) 1 cap PEG BID [facility] Last Admin: 07/02/18 18:12 Dose: 1 cap Loperamide HCl (Imodium) 1 mg PO Q2H PRN PRN Reason: Diarrhea Last Admin: 07/02/18 09:34 Dose: 1 mg Lorazepam (Ativan) 1 mg IVP BID [facility] Last Admin: 07/02/18 18:12 Dose: 1 mg Metoprolol Tartrate (Lopressor) 12.5 mg PEG BID [facility] Last Admin: 07/02/18 18:12 Dose: 12.5 mg Nicotine (Nicoderm Cq) 1 patch TD DAILY [facility] Last Admin: 07/02/18 09:33 Dose: 1 patch Ondansetron HCl (Zofran Inj) 4 mg IVP Q6H PRN PRN Reason: Nausea/Vomiting Last Admin: 06/30/18 20:42 Dose: 4 mg Pantoprazole Sodium (Protonix Susp) 40 mg PO DAILY [facility] Last Admin: 07/02/18 09:21 Dose: 40 mg Saliva Substitute (Mouth Kote 236 Ml) 0 ml MM Q6 PRN PRN Reason: Dry mouth Vitamin A (Vitamin A & D Oint Ud Foilpak) 1 ea TOP Q8 PRN PRN Reason: dry lips Vitamin E (Vitamin E 400 Units Cap) 400 intlu GT DAILY [facility] Last Admin: 07/02/18 09:33 Dose: 400 intlu - Labs Labs: 07/02/18 04:52 07/02/18 04:52 PT 14.3 SECONDS (9.7-12.2) H 06/10/18 07:05 INR 1.3 06/10/18 07:05 APTT 33 SECONDS (21-34) 05/25/18 06:16 - Constitutional Appears: Non-toxic, No Acute Distress, Chronically Ill - Head Exam Head Exam: ATRAUMATIC, NORMAL INSPECTION, NORMOCEPHALIC - Eye Exam Eye Exam: EOMI, Normal appearance Pupil Exam: NORMAL ACCOMODATION - ENT Exam ENT Exam: Mucous Membranes Moist, Normal Exam - Neck Exam Neck Exam: Full ROM, Normal Inspection. absent: Tenderness - Respiratory Exam Respiratory Exam: Clear to Ausculation Bilateral, NORMAL BREATHING PATTERN. absent: Rales, Rhonchi, Wheezes, Respiratory Distress, Stridor - Cardiovascular Exam Cardiovascular Exam: REGULAR RHYTHM, +S1, +S2 Additional comments: wound vac in place clean/dry/intact, Gtube in place clean/dry/intact - GI/Abdominal Exam GI & Abdominal Exam: Soft, Normal Bowel Sounds - Extremities Exam Extremities Exam: Full ROM, Normal Capillary Refill, Normal Inspection. absent : Pedal Edema, Tenderness Additional comments: peripheral pulses palpable (radial, PT, DP) R PICC in place - Back Exam Back Exam: NORMAL INSPECTION - Neurological Exam Neurological Exam: Alert, Awake, CN II-XII Intact, Oriented x3 - Psychiatric Exam Psychiatric exam: Normal Affect, Normal Mood - Skin Skin Exam: Dry, Intact, Normal Color, Warm Assessment and Plan - Assessment and Plan (Free Text) Assessment: 38F with a PMH of HTN, HLD, DM2, asthma s/p bowel resection (05/14, 05/16) 2/2 internal hernia s/p [id number] gastric bypass in 2013 admitted for medical optimization prior to reversal of bypass. Plan: Ischemic bowel disease secondary to internal hernias producing bowel obstruction Current Management: - Current drains include: NGT (have on intermittent suction per surgery), gastrostomy tube (replaced 06/10) - Latest Wound Cultures: * abdominal incision * peg incision site * Both sites finalized--> Pseudomonas Aeruginosa * sensitive to Meropenem * Per ID start Meropenem 1gm IVPB q8hr * Continue Vancomycin * Repeat Vanc troph 30 minutes prior to administration of every 4th dose * [place] range 15- 20, adjusted vanc to 1.5g q12 * Vanc Troph 06/30=17.2 --> - Dr. Harley (surgery) on the case - Wound vac to continuous suction - replaced on 06/22 by surgery - Dr. Cash ([facility] onc) consulted for Fe status - appreciated recommendations * Iron 17, TIBC 238, % sat 7, ferritin 14.5, retic 3.2 Other cultures: New (06/22/18): abdominal incision: Pseudomonas Aeruginosa sensitive to Meropenem New (06/22/18): Peg site: Pseudomonas Aeruginosa sensitive to Meropenem Peritoneal Fluid (05/14/18): Pseudomonas Aeruginosa sensitive to Meropenem Wound Culture (05/23/18): Yudith Albicans Blood Culture (05/15/18, 05/22/18): no growth Urine Culture (05/22/18): no growth Incision Site (05/31/18): Enterococcus faecalis, Acinetobacter baumannii Stool Cultures (06/03/18): No salmonella, shigella, or campylobacteria isolates Repeat wound culture (06/13/18): Coag neg Staph, enterococcus raffinosus Antibiotics: Continue Meropenem 1g Q8H IVPB Continue Vancomycin 1gm IV Q12Hr (started 06/16 @ 12pm), goal vanc trough 15-20 Discontinued Cipro 400 mg IV q12hrs (started 06/02, last day 06/16/18) Completed Flagyl 500mg IVPB q8hrs (active since 05/15/18-06/19/18) Measure vitamin levels and replace as needed: Vit D <12.8- vid D 50,000 unites q1wk x8 wks B12 707, wnl Folate 12.6, wnl Vit A 42, wnl Alpha Vit E 5.6, wnl Vit A, B1, B6, E levels reordered on 06/15. - VitB1: inappropriately submitted, 06/01 value acceptable - VitB6: 5.9, wnl - Tabitha, E collected Medication: Continue Tylenol 975 mg liq q8hrs Continue Dilaudad 1mg IV q3hrs PRN Continue Zofran 4mg IV q6hrs PRN Tachycardia, persistent (110s-130s)- possibly etiologies include pain, infection , anxiety -She is being treated for Left G Tube fluid infection. -Continue Ativan PRN -Continue Dilaudid on board to be used PRN. -Continue Metoprolol tartrate 5mg IV q6hrs with holding parameters (SBP <100, HR <60) Diarrhea, acute, improving- suspect secondary to PO intake by pt -C.Diff (05/22, 05/24, 05/28): negative -Stool O&P (05/25/18): negative -Stool leukocytes (05/25/18): negative -per ID continue Flagyl due to leak around wound vac -Imodium 1mg PO Q2H PRN Anxiety -[employer] Supervisor consulted- pt initially refused but then accepted -Psychiatry consulted (Dr. Reyez)- managing Ativan -Continue Ativan 1mg IV BID -Continue Lexapro 10mg GT daily (started 05/31) Insomnia - Discontinue, Benadryl 25 mg IVP HS PRN, clinically not indicated Anemia, acute, stable, pt denies blood in stool -Patient received a total of 2 PRBC (on 05/16) and 4 FFP (on 05/15 and 05/16) -Iron 16, TIBC 205, %sat 4.7, ferritin 75.3 -Monitor CBC Q2D Thrombocytosis, improving (504)- suspect reactive to pain, surgery- Resolved -Monitory CBC Q2D Diabetes Mellitus, Type 2- controlled -From prior note: Admittedly non-compliant, has not taken Januvia for one year -Accuchecks q6hrs -Hypoglycemic protocol -ISS regular -HbA1c 5.8 -History of gastric bypass surgery Hypercholesterolemia- untreated - LDL <30, HDL 23, Chol 59, TG 195 (06/03/18) - History of gastric bypass surgery - Questran 4gm PO BID History of Hypertension, controlled - Since gastric bypass has not taken meds - Metoprolol 5mg IV q6hrs History of Asthma- Chronic - Atrovent q6hrs Nicotine use disorder- Chronic - From prior note: 1ppd x 20 yrs, 1/2ppd x3 yrs - Continue Nicoderm 1 patch TD QD Electrolyte Imbalance: hypokalemia, hypomagnesemia - resolved - Continue to monitor with AM labs, replete as needed Prophylaxis, Diet, Disposition -Hydrocortisone 1% Cream topical TID for Right Upper Inner Arm macular rash- improved -Vitamin A&D topical q8hrs PRN for dry lips -Saliva substitute q6hrs PRN for dry mouth -IVF: not indicated -VTE ppx: Lovenox 40mg SC daily, SCDs; encourage ambulation -GI ppx: Protonix 40mg IV BID, Florastor BID -Code status: full code -Dispo: PT consulted: working with patient daily, rec home PT with services. Will stay at [facility] until bypass reversal surgery. Pending Dr. Mccray recs. Case to be discussed with Dr. Burke Wilson DO, PGY-1 <Doretha Turk V - Last Filed: 07/03/18 15:34> Objective - Vital Signs/Intake and Output Vital Signs (last 24 hours): Temp Pulse Resp BP Pulse Ox 98.1 F 103 H 20 121/83 97 07/03/18 07:40 07/03/18 14:06 07/03/18 07:40 07/03/18 14:06 07/03/18 07:40 Intake and Output: 07/03/18 07/03/18 06:59 18:59 Intake Total 1800 100 Output Total 350 100 Balance 1450 0 - Medications Medications: Current Medications Acetaminophen (Tylenol 650mg/20.3ml Solution Ud) 975 mg GT Q8H PRN PRN Reason: Pain, Mild (1-3) Calcium Acetate (Phoslo) 667 mg GT TIDCC [facility] Last Admin: 07/03/18 13:00 Dose: 667 mg Cholestyramine Resin (Questran) 4 gm PO BID [facility] Last Admin: 07/03/18 10:52 Dose: 4 gm Dextrose (Dextrose 50% Inj) 0 ml IV STAT PRN; Protocol PRN Reason: Hypoglycemia Protocol Dextrose (Glutose 15) 0 gm PO ONCE PRN; Protocol PRN Reason: Hypoglycemia Protocol Enoxaparin Sodium (Lovenox) 40 mg SC DAILY [facility] Last Admin: 07/03/18 10:52 Dose: 40 mg Ergocalciferol (Drisdol 50,000 Intl Units Cap) 1 cap PO Q7D [facility] Stop: 07/20/18 10:01 Last Admin: 06/29/18 10:46 Dose: 1 cap Escitalopram Oxalate (Lexapro) 10 mg GT DAILY [facility] Last Admin: 07/03/18 10:51 Dose: 10 mg Gentamicin Sulfate (Gentamicin 0.1%) 0 gm TOP TID [facility] Last Admin: 07/03/18 14:07 Dose: 1 oin Glucagon (Glucagen Diagnostic Kit) 0 mg IM STAT PRN; Protocol PRN Reason: Hypoglycemia Protocol Hydrocortisone (Cortizone 1% Cream) 0 gm TOP TID PRN PRN Reason: Rash Hydromorphone HCl (Dilaudid) 1 mg IVP Q3 PRN PRN Reason: Pain, SEVERE (8-10) Last Admin: 07/03/18 14:07 Dose: 1 mg Vancomycin HCl 1,500 mg/ (Sodium Chloride) 500 mls @ 166.6 mls/hr IVPB Q12H [facility]N PRN Reason: Protocol Last Admin: 07/03/18 04:00 Dose: 166.6 mls/hr Meropenem 1 gm/ Sodium (Chloride) 100 mls @ 100 mls/hr IVPB Q8H KAT[facility]N PRN Reason: Protocol Last Admin: 07/03/18 08:00 Dose: 100 mls/hr Insulin Human Regular (Novolin R) 0 unit SC ACHS [facility] PRN Reason: Protocol Last Admin: 07/03/18 12:18 Dose: Not Given Ipratropium [place] (Atrovent) 0.5 mg IH RQ6 [facility] Last Admin: 07/03/18 13:28 Dose: 0.5 mg Lactobacillus Acidophilus (Bacid Acidophilus) 1 cap PEG BID [facility] Last Admin: 07/03/18 10:51 Dose: 1 cap Loperamide HCl (Imodium) 1 mg PO Q2H PRN PRN Reason: Diarrhea Last Admin: 07/03/18 08:12 Dose: 1 mg Lorazepam (Ativan) 1 mg IVP BID [facility] Last Admin: 07/03/18 10:53 Dose: 1 mg Metoprolol Tartrate (Lopressor) 12.5 mg PEG BID [facility] Last Admin: 07/03/18 10:52 Dose: 12.5 mg Nicotine (Nicoderm Cq) 1 patch TD DAILY [facility] Last Admin: 07/03/18 10:52 Dose: 1 patch Ondansetron HCl (Zofran Inj) 4 mg IVP Q6H PRN PRN Reason: Nausea/Vomiting Last Admin: 06/30/18 20:42 Dose: 4 mg Pantoprazole Sodium (Protonix Susp) 40 mg PO DAILY [facility] Last Admin: 07/03/18 10:52 Dose: 40 mg Saliva Substitute (Mouth Kote 236 Ml) 0 ml MM Q6 PRN PRN Reason: Dry mouth Vitamin A (Vitamin A & D Oint Ud Foilpak) 1 ea TOP Q8 PRN PRN Reason: dry lips Vitamin E (Vitamin E 400 Units Cap) 400 intlu GT DAILY [facility] Last Admin: 07/03/18 10:51 Dose: 400 intlu - Labs Labs: 07/02/18 04:52 07/02/18 04:52 PT 14.3 SECONDS (9.7-12.2) H 06/10/18 07:05 INR 1.3 06/10/18 07:05 APTT 33 SECONDS (21-34) 05/25/18 06:16 Assessment and Plan (1) Ischemic bowel disease Status: Acute (2) Obesity (BMI 30-39.9) Status: Acute (3) Small bowel obstruction Status: Acute (4) Prophylactic measure Status: Acute Attending/Attestation - Attestation I have personally seen and examined this patient.: Yes I have fully participated in the care of the patient.: Yes I have reviewed all pertinent clinical information, including history, physical exam and plan: Yes Notes (Text): Patient seen, examined, and case discussed with day-time resident. Patient reports she has had one bowel movement overnight. She was reminded again strict NPO status. Patient noted to have in the NG tube canister about 350 mL and I did discuss with nurse of 100 mL a shift. Patient strongly emphasized to maintain nothing by mouth status she is aware that this can delay her surgery and she is reminded every single time. Noted in patients of abdominal exam wound VAC connected its of lower lower area that is taking up. No erythema. No discharge. Dressing over the gastric tube being replaced by nursing staff mild discharge noted. Per ID to continue IV antibiotics for at least 10 days. Per last surgery no from June 30 wound dressing changed every 72 hours. Vanco trough of 14 yesterday. Order for random Vanco level today 19.3. Patient may remains on vitamin supplementation occluding vitamin D and E. She has finished IV Ferrlecit. Patient is on vancomycin since June 21 and on meropenem since June 24. She is also on topical gentamicin. When surgery does elect stressing change we will need to repeat wound culture to see if infection has cleared. Patient to have blood work drawn tomorrow. Pending surgery plan with bariatric surgeon to determine when the patient is eligible for the reversal surgery to conduct her GI tract.
[2018-07-03] MEDS: (Novolin R) Insulin Human Regular 100 units/ml vial SC SCH ×4 (07:21→22:02)
[2018-07-03] MEDS: Meropenem 1 GM in Sodium Chloride 0.9% 100 ML IVPB SCH ×3 (08:00→22:34)
[2018-07-03] MEDS: Loperamide Hydrochloride 1 mg/5 ml Cup PO PRN (08:12)
[2018-07-03] MEDS: Lactobacillus Acidophilus 500 MU Cap PEG SCH ×2 (10:51→17:21)
[2018-07-03] MEDS: Cholestyramine 4 gm/Pkt UD PO SCH ×2 (10:52→17:24)
[2018-07-03] MEDS: Pantoprazole 40 mg Susp UD PO SCH (10:52)
[2018-07-03] MEDS: Enoxaparin 40 mg Syringe SC SCH (10:52)
[2018-07-03] MEDS: GENTAMICIN 0.1% TOP SCH ×3 (10:53→17:23)
[2018-07-04] MEDS: Ipratropium 0.02% Inhal Soln (0.5 mg/2.5 ml) UD IH SCH ×4 (01:21→19:48)
[2018-07-04] MEDS: (Novolin R) Insulin Human Regular 100 units/ml vial SC SCH ×4 (07:21→22:23)
[2018-07-04] MEDS: Meropenem 1 GM in Sodium Chloride 0.9% 100 ML IVPB SCH ×3 (07:59→23:29)
[2018-07-04] MEDS: Loperamide Hydrochloride 1 mg/5 ml Cup PO PRN (08:01)
[2018-07-04 08:27] LABS: BASO # 0.1 K/uL (0.0-0.2); EOS # 0.5 K/uL (0.0-0.7); EOS % 8.5 % (0.0-4.0); HEMOGLOBIN 8.9 g/dL (11.0-16.0); LYMPH # 1.8 K/uL (1.0-4.3); LYMPH % 31.1 % (20.0-40.0); MEAN CELL VOLUME 88.4 fL (81.0-99.0); MEAN CORPUSCULAR HEMOGLOBIN 29.3 pg (27.0-31.0); MEAN CORPUSCULAR HGB CONC 33.2 g/dL (33.0-37.0); MEAN PLATELET VOLUME 7.7 fL (7.2-11.7); MONO # 0.4 K/uL (0.0-0.8); MONO % 7.4 % (0.0-10.0); NRBC % 0.1 % (0.0-2.0); RBC 3.03 Mil/uL (3.80-5.20); RED CELL DISTRIBUTION WIDTH 18.9 % (11.5-14.5); WHITE BLOOD COUNT 5.9 K/uL (4.8-10.8)
[2018-07-04 08:49] LABS: ALB/GLOB RATIO 0.9 (1.0-2.1); ALBUMIN 2.5 g/dL (3.5-5.0); ALT/SGPT 22 U/L (9-52); AST/SGOT 14 U/L (14-36); BLOOD UREA NITROGEN 3 mg/dL (7-17); GFR NON-AFRICAN AMERICAN > 60
--- NOTE | 2018-07-04 09:25 | CP.PCM.PN ---
<Morris Connolly - Last Filed: 07/04/18 19:43> Subjective - Date & Time of Evaluation Date of Evaluation: 07/04/18 Time of Evaluation: 10:30 - Subjective Subjective: Progress Note for Hospitalist Service Pt seen and examined at bedside this am. Denies any acute complaints, resting comfortably at bedside. Per report pt had additional 300 cc fluid aspirated from NGT, pt denied any PO intake of fluids or ice chips. Denies fever, chills, chest pain, shortness of breath, n/v/d/c, abd pain, urinary complaints, or other symptoms. Objective - Vital Signs/Intake and Output Vital Signs (last 24 hours): Temp Pulse Resp BP Pulse Ox 97.9 F 91 H 20 108/74 95 07/04/18 07:00 07/04/18 07:00 07/04/18 07:00 07/04/18 07:00 07/04/18 07:00 Intake and Output: 07/04/18 07/04/18 06:59 18:59 Intake Total 1400 Output Total 350 Balance 1050 - Medications Medications: Current Medications Acetaminophen (Tylenol 650mg/20.3ml Solution Ud) 975 mg GT Q8H PRN PRN Reason: Pain, Mild (1-3) Calcium Acetate (Phoslo) 667 mg GT TIDCC [facility] Last Admin: 07/04/18 07:58 Dose: 667 mg Cholestyramine Resin (Questran) 4 gm PO BID [facility] Last Admin: 07/03/18 17:24 Dose: 4 gm Dextrose (Dextrose 50% Inj) 0 ml IV STAT PRN; Protocol PRN Reason: Hypoglycemia Protocol Dextrose (Glutose 15) 0 gm PO ONCE PRN; Protocol PRN Reason: Hypoglycemia Protocol Enoxaparin Sodium (Lovenox) 40 mg SC DAILY [facility] Last Admin: 07/03/18 10:52 Dose: 40 mg Ergocalciferol (Drisdol 50,000 Intl Units Cap) 1 cap PO Q7D [facility] Stop: 07/20/18 10:01 Last Admin: 06/29/18 10:46 Dose: 1 cap Escitalopram Oxalate (Lexapro) 10 mg GT DAILY [facility] Last Admin: 07/03/18 10:51 Dose: 10 mg Gentamicin Sulfate (Gentamicin 0.1%) 0 gm TOP TID [facility] Last Admin: 07/03/18 17:23 Dose: 1 oin Glucagon (Glucagen Diagnostic Kit) 0 mg IM STAT PRN; Protocol PRN Reason: Hypoglycemia Protocol Hydrocortisone (Cortizone 1% Cream) 0 gm TOP TID PRN PRN Reason: Rash Hydromorphone HCl (Dilaudid) 1 mg IVP Q3 PRN PRN Reason: Pain, SEVERE (8-10) Last Admin: 07/04/18 06:42 Dose: 1 mg Vancomycin HCl 1,500 mg/ (Sodium Chloride) 500 mls @ 166.6 mls/hr IVPB Q12H [facility] PRN Reason: Protocol Last Admin: 07/04/18 04:14 Dose: 166.6 mls/hr Meropenem 1 gm/ Sodium (Chloride) 100 mls @ 100 mls/hr IVPB Q8H [facility] PRN Reason: Protocol Last Admin: 07/04/18 07:59 Dose: 100 mls/hr Insulin Human Regular (Novolin R) 0 unit SC ACHS [facility] PRN Reason: Protocol Last Admin: 07/04/18 07:21 Dose: Not Given Ipratropium [place] (Atrovent) 0.5 mg IH RQ6 [facility] Last Admin: 07/04/18 01:21 Dose: Not Given Lactobacillus Acidophilus (Bacid Acidophilus) 1 cap PEG BID [facility] Last Admin: 07/03/18 17:21 Dose: 1 cap Loperamide HCl (Imodium) 1 mg PO Q2H PRN PRN Reason: Diarrhea Last Admin: 07/04/18 08:01 Dose: 1 mg Lorazepam (Ativan) 1 mg IVP BID [facility] Last Admin: 07/03/18 18:29 Dose: 1 mg Metoprolol Tartrate (Lopressor) 12.5 mg PEG BID [facility] Last Admin: 07/03/18 17:21 Dose: 12.5 mg Nicotine (Nicoderm Cq) 1 patch TD DAILY [facility] Last Admin: 07/03/18 10:52 Dose: 1 patch Ondansetron HCl (Zofran Inj) 4 mg IVP Q6H PRN PRN Reason: Nausea/Vomiting Last Admin: 07/04/18 08:01 Dose: 4 mg Pantoprazole Sodium (Protonix Susp) 40 mg PO DAILY [facility] Last Admin: 07/03/18 10:52 Dose: 40 mg Saliva Substitute (Mouth Kote 236 Ml) 0 ml MM Q6 PRN PRN Reason: Dry mouth Vitamin A (Vitamin A & D Oint Ud Foilpak) 1 ea TOP Q8 PRN PRN Reason: dry lips Vitamin E (Vitamin E 400 Units Cap) 400 intlu GT DAILY [facility] Last Admin: 07/03/18 10:51 Dose: 400 intlu - Labs Labs: 07/04/18 08:16 07/04/18 08:16 PT 14.3 SECONDS (9.7-12.2) H 06/10/18 07:05 INR 1.3 06/10/18 07:05 APTT 33 SECONDS (21-34) 05/25/18 06:16 - Constitutional Appears: Non-toxic, No Acute Distress, Chronically Ill - Head Exam Head Exam: ATRAUMATIC, NORMOCEPHALIC - Eye Exam Eye Exam: EOMI, Normal appearance, PERRL - ENT Exam ENT Exam: Mucous Membranes Moist Additional comments: NGT in place, intact - Respiratory Exam Respiratory Exam: Clear to Ausculation Bilateral, NORMAL BREATHING PATTERN. absent: Rales, Rhonchi, Wheezes - Cardiovascular Exam Cardiovascular Exam: REGULAR RHYTHM, +S1, +S2. absent: Gallop, Rubs, Murmur - GI/Abdominal Exam GI & Abdominal Exam: Soft, Normal Bowel Sounds Additional comments: Wound vac in place clean and intact, gastrostomy tube intact - Extremities Exam Extremities Exam: Full ROM, Normal Capillary Refill, Normal Inspection Additional comments: R PICC in place, intact - Neurological Exam Neurological Exam: Alert, Awake, CN II-XII Intact, Oriented x3 - Skin Skin Exam: Dry, Intact, Warm Assessment and Plan - Assessment and Plan (Free Text) Assessment: 38 y o female with PMHx HTN, HLD, DM2, asthma, s/p bowel resection (05/14/18, ) 2/2 internal hernia s/p Binta-en-[id number] gastric bypass in 2013, admitted for medical optimization prior to reveral of bypass. Plan: Ischemic bowel disease 2/2 internal hernia producing bowel obstruction Current drains include: NGT (intermittent suction per surgery recs), gastrostomy tube (replaced 06/10/18) Latest wound cultures: -Abd incision, Peg incision site => Pseudomonas aeruginosa, sensitive to Meropenem -Per ID: Meropenem 1 g q 8 h, Vancomycin 1.5 g IVPB q 12 h -Repeat vanco trough prior to administration of 4th dose; ideal range 15-20 Surgery (Dr. Harley) consulted Wound vac to continuous suction, to be replaced by surgery today Heme/onc (Dr. Cash) consulted for Fe status - repeat ferritin 185, no need for iron infusion at this time, anemia stable today Other cultures: 06/22/18: abd incision => Pseudomonas aeruginosa sensitive to Meropenem 06/22/18: Peg site => Pseudomonas aeruginosa sensitive to Meropenem 05/14/18: Peritoneal fluid => Pseudomonas aeruginosa sensitive to Meropenem 05/23/18: Wound cx => Yudith albicans 05/15/18, 05/22/18: Blood cx => no growth 05/22/18: Urine cx => no growth 05/31/18: Incision site => Enterococcus faecalis, Acinetobacter baumannii 06/03/18: Stool cxs => No Salmonella, Shigella, or Campylobacter isolates 06/13/18: Repeat wound cx => Coag-neg Staph, Enterococcus raffinosus Antibiotics: Meropenem 1 g q 8 h IVPB Vancomycin 1.5 g IV q 12 h (started 06/16 at 12 pm), goal vanc trough 15-20 Cipro 400 mg IV q 12h d/c'd (started 06/02/18, last day 06/16/18) Flagyl 500 mg IVPB q 8 h completed (active from 05/15/18-06/19/18) F/u vitamin levels and replace as needed: Vit D < 12.8, 53599 U q1 wk x 8 wks B12 707, wnl Folate 12.6, wnl Vit A 42, wnl Alpha vit E 5.6, wnl Vit A, B1, B6, E levels reordered on 06/15 Vit B1: inappropriately submitted, 06/01/18 valve acceptable Vit B6: 5.9, wnl Vit A, E collected C/w Tylenol 975 mg liquid q 8h, Dilaudid 1 mg q 3 h prn, Zofran 4 mg IV q 6 h prn Tachycardia, persistent, hx into 110s-130s - possible etiologies include pain, infection, anxiety Tx for L G tube fluid infection Ativan prn, Dilaudid prn C/w metoprolol tartrate 12.5 mg bid Diarrhea, acute improving - suspect 2/2 PO intake by patient C. Diff (05/22, 05/24, 05/28) neg Stool ova and parasites (05/25/18) neg Stool leukocytes (05/25/18) neg Flagyl course finished Imodium 1 mg PO q 2h prn Anxiety Card Grinder [employer] consulted - pt initially refused but then accepted Psych consulted (Dr. Reyez) - managing Ativan, c/w prn Lexapro 10 mg GT daily (started 05/31) Insomnia - Benadryl d/c'd, clinically not indicated Anemia, acute, stable, pt denies blood in stool Total 2 PRBC (on 05/16) and 4 FFP (on 05/15 and 05/16) Iron 16, TIBC 205, % sat 4.7, repeat ferritin 185 after Ferrlecit Monitor CBC q2d Thrombocytosis - suspect reactive to pain, surgery; resolved Monitor CBC q2d DM2, controlled From prior note: admittedly non-compliant, has not taken Januvia for 1 y Accuchecks q6h Hypoglycemic protocol ISS regular HgbA1c 5.8 Hx gastric bypass surgery Hypercholesterolemia, untx LDL < 30, HDL < 23, Chol 59, TG 195 (06/03/18) Hx gastric bypass surgery Questran 4 g PO bid Hx HTN, controlled Since gastric bypass has not taken meds Metoprolol 12.5 mg bid Hx Asthma - Chronic Continue to monitor Nicotine use disorder - Chronic From prior note: 1 ppd x 20 y, 1/2 ppd x 3 y C/w Nicoderm patch Electrolyte imbalance - Hypokalemia, Hypomagnesemia - Resolved F/u am labs, replete as needed PPX, Diet, Dispo Hydrocortisone 1% cream top tid for R upper inner arm macular rash - improved Vitamin A+D top q 8h prn for dry lips Saliva substitute q 6 h prn for dry mouth IVF not indicated at this time VTE ppx: Lovenox 40 subQ d, SCDs, encourage ambulation GI ppx: Protonic 40 mg IV bid, Florastor bid Code status: Full code Dispo: PT consulted, working with pt daily, rec home w/ PT services. Will stay at [facility] [place] until bypass reversal surgery, f/u surgical recs. Pt seen, examined with, and plan discussed with Dr. Turk, attending. Morris Connolly DO PGY-1, Board Setter Pager #[phone] <Doretha Turk V - Last Filed: 07/04/18 21:21> Objective - Vital Signs/Intake and Output Vital Signs (last 24 hours): Temp Pulse Resp BP Pulse Ox 98.3 F 95 H 20 115/80 96 07/04/18 15:00 07/04/18 15:00 07/04/18 15:00 07/04/18 15:00 07/04/18 15:00 Intake and Output: 07/04/18 07/05/18 18:59 06:59 Intake Total 500 Output Total 100 Balance 400 - Medications Medications: Current Medications Acetaminophen (Tylenol 650mg/20.3ml Solution Ud) 975 mg GT Q8H PRN PRN Reason: Pain, Mild (1-3) Calcium Acetate (Phoslo) 667 mg GT TIDCC [facility] Last Admin: 07/04/18 18:00 Dose: 667 mg Cholestyramine Resin (Questran) 4 gm PO BID [facility] Last Admin: 07/04/18 18:02 Dose: 4 gm Dextrose (Dextrose 50% Inj) 0 ml IV STAT PRN; Protocol PRN Reason: Hypoglycemia Protocol Dextrose (Glutose 15) 0 gm PO ONCE PRN; Protocol PRN Reason: Hypoglycemia Protocol Enoxaparin Sodium (Lovenox) 40 mg SC DAILY [facility] Last Admin: 07/04/18 09:55 Dose: 40 mg Ergocalciferol (Drisdol 50,000 Intl Units Cap) 1 cap PO Q7D [facility] Stop: 07/20/18 10:01 Last Admin: 06/29/18 10:46 Dose: 1 cap Escitalopram Oxalate (Lexapro) 10 mg GT DAILY [facility] Last Admin: 07/04/18 09:56 Dose: 10 mg Gentamicin Sulfate (Gentamicin 0.1%) 0 gm TOP TID [facility] Last Admin: 07/04/18 18:05 Dose: 1 oin Glucagon (Glucagen Diagnostic Kit) 0 mg IM STAT PRN; Protocol PRN Reason: Hypoglycemia Protocol Hydrocortisone (Cortizone 1% Cream) 0 gm TOP TID PRN PRN Reason: Rash Hydromorphone HCl (Dilaudid) 1 mg IVP Q3 PRN PRN Reason: Pain, SEVERE (8-10) Last Admin: 07/04/18 18:19 Dose: 1 mg Vancomycin HCl 1,500 mg/ (Sodium Chloride) 500 mls @ 166.6 mls/hr IVPB Q12H [facility] PRN Reason: Protocol Last Admin: 07/04/18 18:00 Dose: 166.6 mls/hr Meropenem 1 gm/ Sodium (Chloride) 100 mls @ 100 mls/hr IVPB Q8H [facility] PRN Reason: Protocol Last Admin: 07/04/18 14:39 Dose: 100 mls/hr Insulin Human Regular (Novolin R) 0 unit SC ACHS [facility] PRN Reason: Protocol Last Admin: 07/04/18 16:32 Dose: Not Given Ipratropium [place] (Atrovent) 0.5 mg IH RQ6 [facility] Last Admin: 07/04/18 19:48 Dose: 0.5 mg Lactobacillus Acidophilus (Bacid Acidophilus) 1 cap PEG BID [facility] Last Admin: 07/04/18 18:02 Dose: 1 cap Loperamide HCl (Imodium) 1 mg PO Q2H PRN PRN Reason: Diarrhea Last Admin: 07/04/18 08:01 Dose: 1 mg Lorazepam (Ativan) 1 mg IVP BID [facility] Last Admin: 07/04/18 18:02 Dose: 1 mg Metoprolol Tartrate (Lopressor) 12.5 mg PEG BID [facility] Last Admin: 07/04/18 18:02 Dose: 12.5 mg Nicotine (Nicoderm Cq) 1 patch TD DAILY [facility] Last Admin: 07/04/18 09:55 Dose: 1 patch Ondansetron HCl (Zofran Inj) 4 mg IVP Q6H PRN PRN Reason: Nausea/Vomiting Last Admin: 07/04/18 08:01 Dose: 4 mg Pantoprazole Sodium (Protonix Susp) 40 mg PO DAILY [facility] Last Admin: 07/04/18 09:57 Dose: 40 mg Saliva Substitute (Mouth Kote 236 Ml) 0 ml MM Q6 PRN PRN Reason: Dry mouth Vitamin A (Vitamin A & D Oint Ud Foilpak) 1 ea TOP Q8 PRN PRN Reason: dry lips Vitamin E (Vitamin E 400 Units Cap) 400 intlu GT DAILY [facility] Last Admin: 07/04/18 09:57 Dose: 400 intlu - Labs Labs: 07/04/18 08:16 09/24/18 08:16 PT 14.3 SECONDS (9.7-12.2) H 06/10/18 07:05 INR 1.3 06/10/18 07:05 APTT 33 SECONDS (21-34) 05/25/18 06:16 Assessment and Plan (1) Ischemic bowel disease Status: Acute (2) Obesity (BMI 30-39.9) Status: Acute (3) Small bowel obstruction Status: Acute (4) Prophylactic measure Status: Acute Attending/Attestation - Attestation I have personally seen and examined this patient.: Yes I have fully participated in the care of the patient.: Yes I have reviewed all pertinent clinical information, including history, physical exam and plan: Yes Notes (Text): Patient seen, examined, case discussed with dental assistant medical assistant. Patient seen at bedside this morning with medical team. Discussed with patient' s nurse this morning noting about 300 mL in the NG tube container in about 400 mL coming from the wound VAC. I had a rather jose discussion with the patient with permission given by the patient for mother to be present during exam by of a cell phone in regards to the output noted in the NG tube. Patient is fully aware that she needs to be strict nothing by mouth which means no ice and no water and I reminded her time in time again using with accidental in terms of ice in terms of water in terms if she is cleaning her face or sipping water that these measures will prevent her from having future surgery and I've indicated to her in the past that if she is not going to be compliant that would consider using [facility] system given that this is a behavioral issue if she does not choose to be compliant with the management needed for her to receive the surgery to promote GI motility. Second discussion, patient is aware that she is recovering from her abdominal infections located both with her wound VAC as well as her gastric tube and that she is currently on IV antibiotics for at least 10 days. Have also indicated to her until these infections clear that likely surgery will not pursue surgery to give her every opportunity to recover since we do not want to patient to have an infection source prior to or. Patient has completed 1 week of Ferrlecit and patient is aware she is so considering getting vitamin supplementation for both her vitamin E, for vitamin D as well. Patient was obviously upset she did not want the [facility] system and she did disconnect disconnected herself from the wound VAC as well as reported by the resident and as well as she is also informed the surgery team. I did come by and see the patient later she is much more calmer than this morning and though I commiserate that she has been the hospital for quite some time which is one of her points of frustration did remind her that the type of surgery that she needs to be done when she is without infection and that her nutritional status is better and I commended her for feeling better since how she initially came in. Patient's mother requested for some type is a personal letter for specific housing and it did indicate to her I've over furthest to case finisher since I'm not sure in terms of which specifications are needed in this letter she is requesting. Patient's H&H in the 8. We will continue to monitor renal function letter patient is on IV vancomycin. When patient is next to her for wound change we will obtain a wound culture. Patient's PICC line noted to be clogged per nursing staff received Cathflo and has adequate blood return.
[2018-07-04] MEDS: Enoxaparin 40 mg Syringe SC SCH (09:55)
[2018-07-04] MEDS: Lactobacillus Acidophilus 500 MU Cap PEG SCH ×2 (09:56→18:02)
[2018-07-04] MEDS: Cholestyramine 4 gm/Pkt UD PO SCH ×2 (09:57→18:02)
[2018-07-04] MEDS: Pantoprazole 40 mg Susp UD PO SCH (09:57)
[2018-07-04] MEDS: GENTAMICIN 0.1% TOP SCH ×3 (09:57→18:05)
--- NOTE | 2018-07-04 16:28 | CP.PCM.PN ---
<Barbara Badillo - Last Filed: 07/05/18 08:32> Subjective - Date & Time of Evaluation Date of Evaluation: 07/04/18 Time of Evaluation: 16:25 - Subjective Subjective: General surgery progress note for Dr. Harley-Barbara Badillo, PGY-2 Pt S & E at bedside 1350 Pt resting comfortably in bed. No current complaints. [id number] cc/24hrs Objective - Vital Signs/Intake and Output Vital Signs (last 24 hours): Temp Pulse Resp BP Pulse Ox 98.3 F 95 H 20 115/80 96 07/04/18 15:00 07/04/18 15:00 07/04/18 15:00 07/04/18 15:00 07/04/18 15:00 Intake and Output: 07/04/18 07/04/18 06:59 18:59 Intake Total 1400 500 Output Total 350 100 Balance 1050 400 - Medications Medications: Current Medications Acetaminophen (Tylenol 650mg/20.3ml Solution Ud) 975 mg GT Q8H PRN PRN Reason: Pain, Mild (1-3) Calcium Acetate (Phoslo) 667 mg GT TIDCC [facility] Last Admin: 07/04/18 12:45 Dose: 667 mg Cholestyramine Resin (Questran) 4 gm PO BID [facility] Last Admin: 07/04/18 09:57 Dose: 4 gm Dextrose (Dextrose 50% Inj) 0 ml IV STAT PRN; Protocol PRN Reason: Hypoglycemia Protocol Dextrose (Glutose 15) 0 gm PO ONCE PRN; Protocol PRN Reason: Hypoglycemia Protocol Enoxaparin Sodium (Lovenox) 40 mg SC DAILY [facility] Last Admin: 07/04/18 09:55 Dose: 40 mg Ergocalciferol (Drisdol 50,000 Intl Units Cap) 1 cap PO Q7D [facility] Stop: 07/20/18 10:01 Last Admin: 06/29/18 10:46 Dose: 1 cap Escitalopram Oxalate (Lexapro) 10 mg GT DAILY [facility] Last Admin: 07/04/18 09:56 Dose: 10 mg Gentamicin Sulfate (Gentamicin 0.1%) 0 gm TOP TID [facility] Last Admin: 07/04/18 14:39 Dose: 1 oin Glucagon (Glucagen Diagnostic Kit) 0 mg IM STAT PRN; Protocol PRN Reason: Hypoglycemia Protocol Hydrocortisone (Cortizone 1% Cream) 0 gm TOP TID PRN PRN Reason: Rash Hydromorphone HCl (Dilaudid) 1 mg IVP Q3 PRN PRN Reason: Pain, SEVERE (8-10) Last Admin: 07/04/18 15:51 Dose: 1 mg Vancomycin HCl 1,500 mg/ (Sodium Chloride) 500 mls @ 166.6 mls/hr IVPB Q12H [facility] PRN Reason: Protocol Last Admin: 07/04/18 04:14 Dose: 166.6 mls/hr Meropenem 1 gm/ Sodium (Chloride) 100 mls @ 100 mls/hr IVPB Q8H [facility] PRN Reason: Protocol Last Admin: 07/04/18 14:39 Dose: 100 mls/hr Insulin Human Regular (Novolin R) 0 unit SC ACHS [facility] PRN Reason: Protocol Last Admin: 07/04/18 12:03 Dose: Not Given Ipratropium [place] (Atrovent) 0.5 mg IH RQ6 [facility] Last Admin: 07/04/18 13:15 Dose: 0.5 mg Lactobacillus Acidophilus (Bacid Acidophilus) 1 cap PEG BID [facility] Last Admin: 07/04/18 09:56 Dose: 1 cap Loperamide HCl (Imodium) 1 mg PO Q2H PRN PRN Reason: Diarrhea Last Admin: 07/04/18 08:01 Dose: 1 mg Lorazepam (Ativan) 1 mg IVP BID [facility] Last Admin: 07/04/18 09:53 Dose: 1 mg Metoprolol Tartrate (Lopressor) 12.5 mg PEG BID [facility] Last Admin: 07/04/18 09:56 Dose: 12.5 mg Nicotine (Nicoderm Cq) 1 patch TD DAILY [facility] Last Admin: 07/04/18 09:55 Dose: 1 patch Ondansetron HCl (Zofran Inj) 4 mg IVP Q6H PRN PRN Reason: Nausea/Vomiting Last Admin: 07/04/18 08:01 Dose: 4 mg Pantoprazole Sodium (Protonix Susp) 40 mg PO DAILY [facility] Last Admin: 07/04/18 09:57 Dose: 40 mg Saliva Substitute (Mouth Kote 236 Ml) 0 ml MM Q6 PRN PRN Reason: Dry mouth Vitamin A (Vitamin A & D Oint Ud Foilpak) 1 ea TOP Q8 PRN PRN Reason: dry lips Vitamin E (Vitamin E 400 Units Cap) 400 intlu GT DAILY [facility] Last Admin: 07/04/18 09:57 Dose: 400 intlu - Labs Labs: 07/04/18 08:16 07/04/18 08:16 PT 14.3 SECONDS (9.7-12.2) H 06/10/18 07:05 INR 1.3 06/10/18 07:05 APTT 33 SECONDS (21-34) 05/25/18 06:16 - Constitutional Appears: Non-toxic, No Acute Distress - Head Exam Head Exam: ATRAUMATIC, NORMAL INSPECTION, NORMOCEPHALIC Additional comments: NGT in place - Eye Exam Eye Exam: EOMI, Normal appearance - ENT Exam ENT Exam: Mucous Membranes Moist, Normal Exam - Neck Exam Neck Exam: Full ROM, Normal Inspection - Respiratory Exam Respiratory Exam: NORMAL BREATHING PATTERN - Cardiovascular Exam Cardiovascular Exam: REGULAR RHYTHM, +S1, +S2 - GI/Abdominal Exam GI & Abdominal Exam: Soft. absent: Distended, Firm, Guarding, Rigid, Tenderness Additional comments: wound vac in place- changed today PEG tube with TF in place - Extremities Exam Extremities Exam: Normal Inspection - Neurological Exam Neurological Exam: Alert, Awake, CN II-XII Intact, Oriented x3 - Psychiatric Exam Psychiatric exam: Normal Affect, Normal Mood - Skin Skin Exam: Dry, Normal Color, Warm Assessment and Plan - Assessment and Plan (Free Text) Assessment: 38F s/p Binta-en-Y gastric bypass (2013) w/bowel ischemic 2/2 internal hernia POD#51 s/p ex lap, reduction of internal hernia, DANNI, drainage of abdominal collections, temporary abdominal closure & EGD POD#47 s/p re-exploration, resection of ileum & Binta limb including previous gastrojejunostomy, reversal of bypass, primary anastomosis of ileum-ileum, ileum-ileum, and ileum-jejunum. Gastrostomy tube in bypassed stomach, EGD Wound vac in place over midline incision Plan: Monitor wound vac output Wound vac changes Q72H Wound vac changed today Cont NPO/NGT Monitor NGT output NGT to low-intermittent wall suction Cont TPN OOBTC Ambulate with assistance Encourage IS use Awaiting Dr. Mccray's response to coordinate take back surgery Will DW Dr. Cricket Badillo, PGY-2 <Gómez Harley - Last Filed: 07/10/18 20:28> Objective - Vital Signs/Intake and Output Vital Signs (last 24 hours): Temp Pulse Resp BP Pulse Ox 98.4 F 93 H 20 113/77 96 07/10/18 15:45 07/10/18 15:45 07/10/18 15:45 07/10/18 15:45 07/10/18 15:45 Intake and Output: 07/10/18 07/11/18 18:59 06:59 Intake Total 600 Output Total 100 Balance 500 - Medications Medications: Current Medications Acetaminophen (Tylenol 650mg/20.3ml Solution Ud) 975 mg GT Q8H PRN PRN Reason: Pain, Mild (1-3) Last Admin: 07/10/18 18:30 Dose: 975 mg Benzocaine/Menthol (Cepacol Sore Throat) 1 sravan MT Q2H PRN PRN Reason: Sore Throat Last Admin: 07/10/18 18:30 Dose: 1 sravan Calcium Acetate (Phoslo) 667 mg GT TIDCC [facility] Last Admin: 07/10/18 18:25 Dose: 667 mg Cholestyramine Resin (Questran) 4 gm PO BID [facility] Last Admin: 07/10/18 18:25 Dose: 4 gm Dextrose (Dextrose 50% Inj) 0 ml IV STAT PRN; Protocol PRN Reason: Hypoglycemia Protocol Last Admin: 07/10/18 18:22 Dose: 25 ml Dextrose (Glutose 15) 0 gm PO ONCE PRN; Protocol PRN Reason: Hypoglycemia Protocol Enoxaparin Sodium (Lovenox) 40 mg SC DAILY [facility] Last Admin: 07/10/18 11:03 Dose: 40 mg Ergocalciferol (Drisdol 50,000 Intl Units Cap) 1 cap PO Q7D [facility] Stop: 07/20/18 10:01 Last Admin: 07/06/18 13:12 Dose: 1 cap Escitalopram Oxalate (Lexapro) 10 mg GT DAILY [facility] Last Admin: 07/10/18 11:03 Dose: 10 mg Gentamicin Sulfate (Gentamicin 0.1%) 0 gm TOP TID [facility] Last Admin: 07/10/18 14:03 Dose: 1 oin Glucagon (Glucagen Diagnostic Kit) 0 mg IM STAT PRN; Protocol PRN Reason: Hypoglycemia Protocol Guaifenesin (Robitussin) 100 mg PO Q4H PRN PRN Reason: Cough Last Admin: 07/10/18 18:31 Dose: 100 mg Hydromorphone HCl (Dilaudid) 1 mg IVP Q3 PRN PRN Reason: Pain, SEVERE (8-10) Last Admin: 07/10/18 20:01 Dose: 1 mg Meropenem 1 gm/ Sodium (Chloride) 100 mls @ 100 mls/hr IVPB Q8H [facility]; Protocol Last Admin: 07/10/18 15:24 Dose: 100 mls/hr Influenza Virus Vaccine (Fluzone Quad 7380-0414) 60 mcg IM .ONCE ONE Stop: 07/11/18 18:01 Insulin Human Regular (Novolin R) 0 unit SC ACHS [facility]; Protocol Last Admin: 07/10/18 18:25 Dose: Not Given Ipratropium [place] (Atrovent) 0.5 mg IH RQ6 [facility] Last Admin: 07/10/18 19:34 Dose: 0.5 mg Loperamide HCl (Imodium) 1 mg PO Q2H PRN PRN Reason: Diarrhea Last Admin: 07/10/18 18:25 Dose: 1 mg Lorazepam (Ativan) 1 mg IVP BID [facility] Last Admin: 07/10/18 17:05 Dose: 1 mg Metoprolol Tartrate (Lopressor) 12.5 mg PEG BID [facility] Last Admin: 07/10/18 18:25 Dose: 12.5 mg Nicotine (Nicoderm Cq) 1 patch TD DAILY [facility] Last Admin: 07/10/18 11:03 Dose: 1 patch Ondansetron HCl (Zofran Inj) 4 mg IVP Q6H PRN PRN Reason: Nausea/Vomiting Last Admin: 07/10/18 11:03 Dose: 4 mg Pantoprazole Sodium (Protonix Susp) 40 mg PO DAILY [facility] Last Admin: 07/10/18 11:03 Dose: 40 mg Saliva Substitute (Mouth Kote 236 Ml) 0 ml MM Q6 PRN PRN Reason: Dry mouth Vitamin A (Vitamin A & D Oint Ud Foilpak) 1 ea TOP Q8 PRN PRN Reason: dry lips Vitamin E (Vitamin E 400 Units Cap) 400 intlu GT DAILY [facility] Last Admin: 07/10/18 11:03 Dose: 400 intlu - Labs Labs: 07/10/18 07:23 07/10/18 07:23 PT 14.3 SECONDS (9.7-12.2) H 06/10/18 07:05 INR 1.3 06/10/18 07:05 APTT 33 SECONDS (21-34) 05/25/18 06:16 Attending/Attestation - Attestation I have fully participated in the care of the patient.: Yes I have reviewed all pertinent clinical information, including history, physical exam and plan: Yes Notes (Text): Pt is stable clinically c.w current mx Local wound care Plan d.w pt in detail
--- NOTE | 2018-07-04 21:27 | CP.PCM.PN ---
Subjective - Date & Time of Evaluation Date of Evaluation: 07/04/18 Time of Evaluation: 17:00 - Subjective Subjective: dictated Objective - Vital Signs/Intake and Output Vital Signs (last 24 hours): Temp Pulse Resp BP Pulse Ox 98.3 F 95 H 20 115/80 96 07/04/18 15:00 07/04/18 15:00 07/04/18 15:00 07/04/18 15:00 07/04/18 15:00 Intake and Output: 07/04/18 07/05/18 18:59 06:59 Intake Total 500 Output Total 100 Balance 400 - Medications Medications: Current Medications Acetaminophen (Tylenol 650mg/20.3ml Solution Ud) 975 mg GT Q8H PRN PRN Reason: Pain, Mild (1-3) Calcium Acetate (Phoslo) 667 mg GT TIDCC [facility] Last Admin: 07/04/18 18:00 Dose: 667 mg Cholestyramine Resin (Questran) 4 gm PO BID [facility] Last Admin: 07/04/18 18:02 Dose: 4 gm Dextrose (Dextrose 50% Inj) 0 ml IV STAT PRN; Protocol PRN Reason: Hypoglycemia Protocol Dextrose (Glutose 15) 0 gm PO ONCE PRN; Protocol PRN Reason: Hypoglycemia Protocol Enoxaparin Sodium (Lovenox) 40 mg SC DAILY [facility] Last Admin: 07/04/18 09:55 Dose: 40 mg Ergocalciferol (Drisdol 50,000 Intl Units Cap) 1 cap PO Q7D [facility] Stop: 07/20/18 10:01 Last Admin: 06/29/18 10:46 Dose: 1 cap Escitalopram Oxalate (Lexapro) 10 mg GT DAILY [facility] Last Admin: 07/04/18 09:56 Dose: 10 mg Gentamicin Sulfate (Gentamicin 0.1%) 0 gm TOP TID [facility] Last Admin: 07/04/18 18:05 Dose: 1 oin Glucagon (Glucagen Diagnostic Kit) 0 mg IM STAT PRN; Protocol PRN Reason: Hypoglycemia Protocol Hydrocortisone (Cortizone 1% Cream) 0 gm TOP TID PRN PRN Reason: Rash Hydromorphone HCl (Dilaudid) 1 mg IVP Q3 PRN PRN Reason: Pain, SEVERE (8-10) Last Admin: 07/04/18 21:24 Dose: 1 mg Vancomycin HCl 1,500 mg/ (Sodium Chloride) 500 mls @ 166.6 mls/hr IVPB Q12H [facility] PRN Reason: Protocol Last Admin: 07/04/18 18:00 Dose: 166.6 mls/hr Meropenem 1 gm/ Sodium (Chloride) 100 mls @ 100 mls/hr IVPB Q8H [facility] PRN Reason: Protocol Last Admin: 07/04/18 14:39 Dose: 100 mls/hr Insulin Human Regular (Novolin R) 0 unit SC ACHS [facility] PRN Reason: Protocol Last Admin: 07/04/18 16:32 Dose: Not Given Ipratropium [place] (Atrovent) 0.5 mg IH RQ6 [facility] Last Admin: 07/04/18 19:48 Dose: 0.5 mg Lactobacillus Acidophilus (Bacid Acidophilus) 1 cap PEG BID [facility] Last Admin: 07/04/18 18:02 Dose: 1 cap Loperamide HCl (Imodium) 1 mg PO Q2H PRN PRN Reason: Diarrhea Last Admin: 07/04/18 08:01 Dose: 1 mg Lorazepam (Ativan) 1 mg IVP BID [facility] Last Admin: 07/04/18 18:02 Dose: 1 mg Metoprolol Tartrate (Lopressor) 12.5 mg PEG BID [facility] Last Admin: 07/04/18 18:02 Dose: 12.5 mg Nicotine (Nicoderm Cq) 1 patch TD DAILY [facility] Last Admin: 07/04/18 09:55 Dose: 1 patch Ondansetron HCl (Zofran Inj) 4 mg IVP Q6H PRN PRN Reason: Nausea/Vomiting Last Admin: 07/04/18 08:01 Dose: 4 mg Pantoprazole Sodium (Protonix Susp) 40 mg PO DAILY [facility] Last Admin: 07/04/18 09:57 Dose: 40 mg Saliva Substitute (Mouth Kote 236 Ml) 0 ml MM Q6 PRN PRN Reason: Dry mouth Vitamin A (Vitamin A & D Oint Ud Foilpak) 1 ea TOP Q8 PRN PRN Reason: dry lips Vitamin E (Vitamin E 400 Units Cap) 400 intlu GT DAILY [facility] Last Admin: 07/04/18 09:57 Dose: 400 intlu - Labs Labs: 07/04/18 08:16 07/04/18 08:16 PT 14.3 SECONDS (9.7-12.2) H 06/10/18 07:05 INR 1.3 06/10/18 07:05 APTT 33 SECONDS (21-34) 05/25/18 06:16
--- NOTE | 2018-07-04 23:35 | CP.PCM.PN ---
Subjective - Date & Time of Evaluation Date of Evaluation: 07/02/18 Time of Evaluation: 17:00 - Subjective Subjective: No complaints. Objective - Vital Signs/Intake and Output Vital Signs (last 24 hours): Temp Pulse Resp BP Pulse Ox 98.3 F 95 H 20 115/80 96 07/04/18 15:00 07/04/18 15:00 07/04/18 15:00 07/04/18 15:00 07/04/18 15:00 Intake and Output: 07/04/18 07/05/18 18:59 06:59 Intake Total 500 Output Total 100 500 Balance 400 -500 - Medications Medications: Current Medications Acetaminophen (Tylenol 650mg/20.3ml Solution Ud) 975 mg GT Q8H PRN PRN Reason: Pain, Mild (1-3) Calcium Acetate (Phoslo) 667 mg GT TIDCC [facility] Last Admin: 07/04/18 18:00 Dose: 667 mg Cholestyramine Resin (Questran) 4 gm PO BID [facility] Last Admin: 07/04/18 18:02 Dose: 4 gm Dextrose (Dextrose 50% Inj) 0 ml IV STAT PRN; Protocol PRN Reason: Hypoglycemia Protocol Dextrose (Glutose 15) 0 gm PO ONCE PRN; Protocol PRN Reason: Hypoglycemia Protocol Enoxaparin Sodium (Lovenox) 40 mg SC DAILY [facility] Last Admin: 07/04/18 09:55 Dose: 40 mg Ergocalciferol (Drisdol 50,000 Intl Units Cap) 1 cap PO Q7D [facility] Stop: 07/20/18 10:01 Last Admin: 06/29/18 10:46 Dose: 1 cap Escitalopram Oxalate (Lexapro) 10 mg GT DAILY [facility] Last Admin: 07/04/18 09:56 Dose: 10 mg Gentamicin Sulfate (Gentamicin 0.1%) 0 gm TOP TID [facility] Last Admin: 07/04/18 18:05 Dose: 1 oin Glucagon (Glucagen Diagnostic Kit) 0 mg IM STAT PRN; Protocol PRN Reason: Hypoglycemia Protocol Hydrocortisone (Cortizone 1% Cream) 0 gm TOP TID PRN PRN Reason: Rash Hydromorphone HCl (Dilaudid) 1 mg IVP Q3 PRN PRN Reason: Pain, SEVERE (8-10) Last Admin: 07/04/18 21:24 Dose: 1 mg Vancomycin HCl 1,500 mg/ (Sodium Chloride) 500 mls @ 166.6 mls/hr IVPB Q12H [facility] PRN Reason: Protocol Last Admin: 07/04/18 18:00 Dose: 166.6 mls/hr Meropenem 1 gm/ Sodium (Chloride) 100 mls @ 100 mls/hr IVPB Q8H [facility] PRN Reason: Protocol Last Admin: 07/04/18 23:29 Dose: 100 mls/hr Insulin Human Regular (Novolin R) 0 unit SC ACHS [facility] PRN Reason: Protocol Last Admin: 07/04/18 16:32 Dose: Not Given Ipratropium [place] (Atrovent) 0.5 mg IH RQ6 [facility] Last Admin: 07/04/18 19:48 Dose: 0.5 mg Lactobacillus Acidophilus (Bacid Acidophilus) 1 cap PEG BID [facility] Last Admin: 07/04/18 18:02 Dose: 1 cap Loperamide HCl (Imodium) 1 mg PO Q2H PRN PRN Reason: Diarrhea Last Admin: 07/04/18 08:01 Dose: 1 mg Lorazepam (Ativan) 1 mg IVP BID [facility] Last Admin: 07/04/18 18:02 Dose: 1 mg Metoprolol Tartrate (Lopressor) 12.5 mg PEG BID [facility] Last Admin: 07/04/18 18:02 Dose: 12.5 mg Nicotine (Nicoderm Cq) 1 patch TD DAILY [facility] Last Admin: 07/04/18 09:55 Dose: 1 patch Ondansetron HCl (Zofran Inj) 4 mg IVP Q6H PRN PRN Reason: Nausea/Vomiting Last Admin: 07/04/18 08:01 Dose: 4 mg Pantoprazole Sodium (Protonix Susp) 40 mg PO DAILY [facility] Last Admin: 07/04/18 09:57 Dose: 40 mg Saliva Substitute (Mouth Kote 236 Ml) 0 ml MM Q6 PRN PRN Reason: Dry mouth Vitamin A (Vitamin A & D Oint Ud Foilpak) 1 ea TOP Q8 PRN PRN Reason: dry lips Vitamin E (Vitamin E 400 Units Cap) 400 intlu GT DAILY [facility] Last Admin: 07/04/18 09:57 Dose: 400 intlu - Labs Labs: 07/04/18 08:16 07/04/18 08:16 PT 14.3 SECONDS (9.7-12.2) H 08/31/18 07:05 INR 1.3 06/10/18 07:05 APTT 33 SECONDS (21-34) 05/25/18 06:16 - Head Exam Head Exam: ATRAUMATIC - Eye Exam Eye Exam: Normal appearance - ENT Exam ENT Exam: Mucous Membranes Dry - Respiratory Exam Respiratory Exam: NORMAL BREATHING PATTERN - Cardiovascular Exam Cardiovascular Exam: +S1, +S2 - GI/Abdominal Exam GI & Abdominal Exam: Normal Bowel Sounds Assessment and Plan (1) Anemia Assessment & Plan: iron deficiency anemia resolved s/p IV iron anemia of chronic disease; will consider Procrit supplementation in an attempt to avoid further transfusions FOBT positive transfuse PRN Status: Acute
--- NOTE | 2018-07-04 23:36 | CP.PCM.PN ---
Subjective - Date & Time of Evaluation Date of Evaluation: 07/04/18 Time of Evaluation: 20:00 - Subjective Subjective: No complaints. Objective - Vital Signs/Intake and Output Vital Signs (last 24 hours): Temp Pulse Resp BP Pulse Ox 98.3 F 95 H 20 115/80 96 07/04/18 15:00 07/04/18 15:00 07/04/18 15:00 07/04/18 15:00 07/04/18 15:00 Intake and Output: 07/04/18 07/05/18 18:59 06:59 Intake Total 500 Output Total 100 500 Balance 400 -500 - Medications Medications: Current Medications Acetaminophen (Tylenol 650mg/20.3ml Solution Ud) 975 mg GT Q8H PRN PRN Reason: Pain, Mild (1-3) Calcium Acetate (Phoslo) 667 mg GT TIDCC [facility] Last Admin: 07/04/18 18:00 Dose: 667 mg Cholestyramine Resin (Questran) 4 gm PO BID [facility] Last Admin: 07/04/18 18:02 Dose: 4 gm Dextrose (Dextrose 50% Inj) 0 ml IV STAT PRN; Protocol PRN Reason: Hypoglycemia Protocol Dextrose (Glutose 15) 0 gm PO ONCE PRN; Protocol PRN Reason: Hypoglycemia Protocol Enoxaparin Sodium (Lovenox) 40 mg SC DAILY [facility] Last Admin: 07/04/18 09:55 Dose: 40 mg Ergocalciferol (Drisdol 50,000 Intl Units Cap) 1 cap PO Q7D [facility] Stop: 07/20/18 10:01 Last Admin: 06/29/18 10:46 Dose: 1 cap Escitalopram Oxalate (Lexapro) 10 mg GT DAILY [facility] Last Admin: 07/04/18 09:56 Dose: 10 mg Gentamicin Sulfate (Gentamicin 0.1%) 0 gm TOP TID [facility] Last Admin: 07/04/18 18:05 Dose: 1 oin Glucagon (Glucagen Diagnostic Kit) 0 mg IM STAT PRN; Protocol PRN Reason: Hypoglycemia Protocol Hydrocortisone (Cortizone 1% Cream) 0 gm TOP TID PRN PRN Reason: Rash Hydromorphone HCl (Dilaudid) 1 mg IVP Q3 PRN PRN Reason: Pain, SEVERE (8-10) Last Admin: 07/04/18 21:24 Dose: 1 mg Vancomycin HCl 1,500 mg/ (Sodium Chloride) 500 mls @ 166.6 mls/hr IVPB Q12H [facility] PRN Reason: Protocol Last Admin: 07/04/18 18:00 Dose: 166.6 mls/hr Meropenem 1 gm/ Sodium (Chloride) 100 mls @ 100 mls/hr IVPB Q8H [facility] PRN Reason: Protocol Last Admin: 07/04/18 23:29 Dose: 100 mls/hr Insulin Human Regular (Novolin R) 0 unit SC ACHS [facility] PRN Reason: Protocol Last Admin: 07/04/18 16:32 Dose: Not Given Ipratropium [place] (Atrovent) 0.5 mg IH RQ6 [facility] Last Admin: 07/04/18 19:48 Dose: 0.5 mg Lactobacillus Acidophilus (Bacid Acidophilus) 1 cap PEG BID [facility] Last Admin: 07/04/18 18:02 Dose: 1 cap Loperamide HCl (Imodium) 1 mg PO Q2H PRN PRN Reason: Diarrhea Last Admin: 07/04/18 08:01 Dose: 1 mg Lorazepam (Ativan) 1 mg IVP BID [facility] Last Admin: 07/04/18 18:02 Dose: 1 mg Metoprolol Tartrate (Lopressor) 12.5 mg PEG BID [facility] Last Admin: 07/04/18 18:02 Dose: 12.5 mg Nicotine (Nicoderm Cq) 1 patch TD DAILY [facility] Last Admin: 07/04/18 09:55 Dose: 1 patch Ondansetron HCl (Zofran Inj) 4 mg IVP Q6H PRN PRN Reason: Nausea/Vomiting Last Admin: 07/04/18 08:01 Dose: 4 mg Pantoprazole Sodium (Protonix Susp) 40 mg PO DAILY [facility] Last Admin: 07/04/18 09:57 Dose: 40 mg Saliva Substitute (Mouth Kote 236 Ml) 0 ml MM Q6 PRN PRN Reason: Dry mouth Vitamin A (Vitamin A & D Oint Ud Foilpak) 1 ea TOP Q8 PRN PRN Reason: dry lips Vitamin E (Vitamin E 400 Units Cap) 400 intlu GT DAILY [facility] Last Admin: 07/04/18 09:57 Dose: 400 intlu - Labs Labs: 07/04/18 08:16 07/04/18 08:16 PT 14.3 SECONDS (9.7-12.2) H 08/31/18 07:05 INR 1.3 06/10/18 07:05 APTT 33 SECONDS (21-34) 05/25/18 06:16 - Head Exam Head Exam: ATRAUMATIC - Eye Exam Eye Exam: Normal appearance - ENT Exam ENT Exam: Mucous Membranes Dry - Respiratory Exam Respiratory Exam: NORMAL BREATHING PATTERN - Cardiovascular Exam Cardiovascular Exam: +S1, +S2 - GI/Abdominal Exam GI & Abdominal Exam: Normal Bowel Sounds Assessment and Plan (1) Anemia Assessment & Plan: iron deficiency anemia resolved s/p IV iron anemia of chronic disease; will consider Procrit supplementation in an attempt to avoid further transfusions FOBT positive transfuse PRN Status: Acute
[2018-07-05] MEDS: Ipratropium 0.02% Inhal Soln (0.5 mg/2.5 ml) UD IH SCH ×4 (01:41→20:41)
--- NOTE | 2018-07-05 02:58 | PN ---
DATE: 07/04/2018 SUBJECTIVE: When I went to see the patient, the residents were trying to put a wound VAC. I saw the center wound. It only has two small areas of opening with minimal drainage. Otherwise, the whole surgical scar was looking better and healing. Jejunostomy tube is present on the other site; however, there was issue as she has been taking orally liquids, and Dr. Turk has confronted her. She also is getting tired of being in the hospital and wants to get over it. Dr. Moore was there, and he said he is going to discuss with the surgical team as well as the attending about future plans whether they need to do the surgery here or need to transfer elsewhere. PHYSICAL EXAMINATION: VITAL SIGNS: T-max is 98.3, pulse 95, blood pressure 115/80, respirations are 20. HEENT: Head is atraumatic, normocephalic. NECK: Supple. She has a PICC line. LUNGS: Clear. HEART: S1 and S2 are regular. Dressing, I saw the wound which has two small opening flaps, so it is mostly healing. EXTREMITIES: Have no edema. She has been trying to ambulate now. LABORATORY DATA: White count is 5.9, hemoglobin 8.9, hematocrit 26.8, platelet count is 246. BUN is 3 and creatinine 0.3. ASSESSMENT AND PLAN: She remains on vancomycin as well as meropenem. She remains on Lovenox also and on vancomycin and meropenem at this time. We will continue the same. Plan is to follow with the surgical service for the future plans. Impression is that she is status post ischemic bowel surgery. She has had two laparotomies already and is on intravenous Hyperal and needs a definitive surgery for reconstruction of her gastrointestinal tract. Guero Rivera MD
[2018-07-05] MEDS: Meropenem 1 GM in Sodium Chloride 0.9% 100 ML IVPB SCH ×3 (08:25→23:30)
[2018-07-05] MEDS: (Novolin R) Insulin Human Regular 100 units/ml vial SC SCH ×3 (08:26→17:30)
--- NOTE | 2018-07-05 15:22 | CP.PCM.PN ---
Subjective - Date & Time of Evaluation Date of Evaluation: 07/05/18 Time of Evaluation: 14:35 - Subjective Subjective: dictated Objective - Vital Signs/Intake and Output Vital Signs (last 24 hours): Temp Pulse Resp BP Pulse Ox 98.0 F 99 H 20 120/78 95 07/05/18 07:00 07/05/18 07:00 07/05/18 07:00 07/05/18 07:00 07/05/18 07:00 Intake and Output: 07/05/18 07/05/18 06:59 18:59 Intake Total 500 Output Total 500 Balance 0 - Medications Medications: Current Medications Acetaminophen (Tylenol 650mg/20.3ml Solution Ud) 975 mg GT Q8H PRN PRN Reason: Pain, Mild (1-3) Calcium Acetate (Phoslo) 667 mg GT TIDCC [facility] Last Admin: 07/05/18 08:26 Dose: 667 mg Cholestyramine Resin (Questran) 4 gm PO BID [facility] Last Admin: 07/04/18 18:02 Dose: 4 gm Dextrose (Dextrose 50% Inj) 0 ml IV STAT PRN; Protocol PRN Reason: Hypoglycemia Protocol Dextrose (Glutose 15) 0 gm PO ONCE PRN; Protocol PRN Reason: Hypoglycemia Protocol Enoxaparin Sodium (Lovenox) 40 mg SC DAILY [facility] Last Admin: 07/04/18 09:55 Dose: 40 mg Ergocalciferol (Drisdol 50,000 Intl Units Cap) 1 cap PO Q7D [facility] Stop: 07/20/18 10:01 Last Admin: 06/29/18 10:46 Dose: 1 cap Escitalopram Oxalate (Lexapro) 10 mg GT DAILY [facility] Last Admin: 07/04/18 09:56 Dose: 10 mg Gentamicin Sulfate (Gentamicin 0.1%) 0 gm TOP TID [facility] Last Admin: 07/04/18 18:05 Dose: 1 oin Glucagon (Glucagen Diagnostic Kit) 0 mg IM STAT PRN; Protocol PRN Reason: Hypoglycemia Protocol Hydrocortisone (Cortizone 1% Cream) 0 gm TOP TID PRN PRN Reason: Rash Hydromorphone HCl (Dilaudid) 1 mg IVP Q3 PRN PRN Reason: Pain, SEVERE (8-10) Last Admin: 07/05/18 09:20 Dose: 1 mg Vancomycin HCl 1,500 mg/ (Sodium Chloride) 500 mls @ 166.6 mls/hr IVPB Q12H [facility]; Protocol Last Admin: 07/05/18 05:00 Dose: 166.6 mls/hr Meropenem 1 gm/ Sodium (Chloride) 100 mls @ 100 mls/hr IVPB Q8H [facility]; Protocol Last Admin: 07/05/18 08:25 Dose: 100 mls/hr Insulin Human Regular (Novolin R) 0 unit SC ACHS [facility]; Protocol Last Admin: 07/05/18 08:26 Dose: Not Given Ipratropium [place] (Atrovent) 0.5 mg IH RQ6 [facility] Last Admin: 07/05/18 13:43 Dose: 0.5 mg Lactobacillus Acidophilus (Bacid Acidophilus) 1 cap PEG BID [facility] Last Admin: 07/04/18 18:02 Dose: 1 cap Loperamide HCl (Imodium) 1 mg PO Q2H PRN PRN Reason: Diarrhea Last Admin: 07/04/18 08:01 Dose: 1 mg Lorazepam (Ativan) 1 mg IVP BID [facility] Last Admin: 07/04/18 18:02 Dose: 1 mg Metoprolol Tartrate (Lopressor) 12.5 mg PEG BID [facility] Last Admin: 07/04/18 18:02 Dose: 12.5 mg Nicotine (Nicoderm Cq) 1 patch TD DAILY [facility] Last Admin: 07/04/18 09:55 Dose: 1 patch Ondansetron HCl (Zofran Inj) 4 mg IVP Q6H PRN PRN Reason: Nausea/Vomiting Last Admin: 07/04/18 08:01 Dose: 4 mg Pantoprazole Sodium (Protonix Susp) 40 mg PO DAILY [facility] Last Admin: 07/04/18 09:57 Dose: 40 mg Saliva Substitute (Mouth Kote 236 Ml) 0 ml MM Q6 PRN PRN Reason: Dry mouth Vitamin A (Vitamin A & D Oint Ud Foilpak) 1 ea TOP Q8 PRN PRN Reason: dry lips Vitamin E (Vitamin E 400 Units Cap) 400 intlu GT DAILY [facility] Last Admin: 07/04/18 09:57 Dose: 400 intlu - Labs Labs: 07/04/18 08:16 07/04/18 08:16 PT 14.3 SECONDS (9.7-12.2) H 06/10/18 07:05 INR 1.3 06/10/18 07:05 APTT 33 SECONDS (21-34) 05/25/18 06:16
[2018-07-05] MEDS: Lactobacillus Acidophilus 500 MU Cap PEG SCH ×2 (16:24→18:42)
[2018-07-05] MEDS: GENTAMICIN 0.1% TOP SCH ×2 (16:24→18:42)
[2018-07-05] MEDS: Enoxaparin 40 mg Syringe SC SCH (16:25)
[2018-07-05] MEDS: Cholestyramine 4 gm/Pkt UD PO SCH ×2 (16:26→18:42)
[2018-07-05] MEDS: Pantoprazole 40 mg Susp UD PO SCH (16:26)
--- NOTE | 2018-07-05 23:13 | CP.PCM.PN ---
<Humberto Banegas - Last Filed: 07/05/18 23:14> Subjective - Date & Time of Evaluation Date of Evaluation: 07/05/18 Time of Evaluation: 09:30 - Subjective Subjective: PGY-[address] Turk service Patient is seen and examined at bedside. Patient complains of throat pain and discomfort that worsens when patient coughs. Patient admits this discomfort has happened in the past and resolved on its own. Patient denies any other pain. Patient denies fever or chills, chest pain, shortness of breath, nausea or vomiting. patient is ambulating and having bowel movements. Patient continues to be NPO. NGT tube output was 600 cc/24 hrs. wound vac has 0 CC/24 hours. Objective - Vital Signs/Intake and Output Vital Signs (last 24 hours): Temp Pulse Resp BP Pulse Ox 99 F 99 H 20 122/84 94 L 07/05/18 15:00 07/05/18 15:00 07/05/18 15:00 07/05/18 15:00 07/05/18 15:00 Intake and Output: 07/05/18 07/06/18 18:59 06:59 Intake Total 500 900 Output Total 0 0 Balance 500 900 - Medications Medications: Current Medications Acetaminophen (Tylenol 650mg/20.3ml Solution Ud) 975 mg GT Q8H PRN PRN Reason: Pain, Mild (1-3) Calcium Acetate (Phoslo) 667 mg GT TIDCC [facility] Last Admin: 07/05/18 18:42 Dose: 667 mg Cholestyramine Resin (Questran) 4 gm PO BID [facility] Last Admin: 07/05/18 18:42 Dose: 4 gm Dextrose (Dextrose 50% Inj) 0 ml IV STAT PRN; Protocol PRN Reason: Hypoglycemia Protocol Dextrose (Glutose 15) 0 gm PO ONCE PRN; Protocol PRN Reason: Hypoglycemia Protocol Enoxaparin Sodium (Lovenox) 40 mg SC DAILY [facility] Last Admin: 07/05/18 16:25 Dose: Not Given Ergocalciferol (Drisdol 50,000 Intl Units Cap) 1 cap PO Q7D [facility] Stop: 07/20/18 10:01 Last Admin: 06/29/18 10:46 Dose: 1 cap Escitalopram Oxalate (Lexapro) 10 mg GT DAILY [facility] Last Admin: 07/05/18 16:25 Dose: Not Given Gentamicin Sulfate (Gentamicin 0.1%) 0 gm TOP TID [facility] Last Admin: 07/05/18 18:42 Dose: 1 oin Glucagon (Glucagen Diagnostic Kit) 0 mg IM STAT PRN; Protocol PRN Reason: Hypoglycemia Protocol Hydrocortisone (Cortizone 1% Cream) 0 gm TOP TID PRN PRN Reason: Rash Hydromorphone HCl (Dilaudid) 1 mg IVP Q3 PRN PRN Reason: Pain, SEVERE (8-10) Last Admin: 07/05/18 21:26 Dose: 1 mg Meropenem 1 gm/ Sodium (Chloride) 100 mls @ 100 mls/hr IVPB Q8H [facility]; Protocol Last Admin: 07/05/18 16:25 Dose: Not Given Insulin Human Regular (Novolin R) 0 unit SC ACHS [facility]; Protocol Last Admin: 07/05/18 17:30 Dose: Not Given Ipratropium [place] (Atrovent) 0.5 mg IH RQ6 [facility] Last Admin: 07/05/18 20:41 Dose: 0.5 mg Lactobacillus Acidophilus (Bacid Acidophilus) 1 cap PEG BID [facility] Last Admin: 07/05/18 18:42 Dose: 1 cap Loperamide HCl (Imodium) 1 mg PO Q2H PRN PRN Reason: Diarrhea Last Admin: 07/04/18 08:01 Dose: 1 mg Lorazepam (Ativan) 1 mg IVP BID [facility] Last Admin: 07/05/18 18:24 Dose: 1 mg Metoprolol Tartrate (Lopressor) 12.5 mg PEG BID [facility] Last Admin: 07/05/18 18:42 Dose: 12.5 mg Nicotine (Nicoderm Cq) 1 patch TD DAILY [facility] Last Admin: 07/05/18 16:25 Dose: Not Given Ondansetron HCl (Zofran Inj) 4 mg IVP Q6H PRN PRN Reason: Nausea/Vomiting Last Admin: 07/05/18 21:31 Dose: 4 mg Pantoprazole Sodium (Protonix Susp) 40 mg PO DAILY [facility] Last Admin: 07/05/18 16:26 Dose: Not Given Saliva Substitute (Mouth Kote 236 Ml) 0 ml MM Q6 PRN PRN Reason: Dry mouth Vitamin A (Vitamin A & D Oint Ud Foilpak) 1 ea TOP Q8 PRN PRN Reason: dry lips Vitamin E (Vitamin E 400 Units Cap) 400 intlu GT DAILY [facility] Last Admin: 07/05/18 16:27 Dose: Not Given - Labs Labs: 07/04/18 08:16 07/04/18 08:16 PT 14.3 SECONDS (9.7-12.2) H 06/10/18 07:05 INR 1.3 06/10/18 07:05 APTT 33 SECONDS (21-34) 05/25/18 06:16 - Constitutional Appears: Non-toxic, No Acute Distress - Head Exam Head Exam: ATRAUMATIC, NORMAL INSPECTION, NORMOCEPHALIC - Eye Exam Eye Exam: EOMI, Normal appearance - ENT Exam ENT Exam: Mucous Membranes Moist, Normal Exam Additional comments: NG tube on right nare in place, intact Ng tube observed in oropharynx area, with mucous material surrounding it. oropharynx non erythematous, no plaques or exudates observed. - Neck Exam Neck Exam: Full ROM, Normal Inspection - Respiratory Exam Respiratory Exam: Clear to Ausculation Bilateral, NORMAL BREATHING PATTERN. absent: Accessory Muscle Use, Rales, Rhonchi, Wheezes, Respiratory Distress - Cardiovascular Exam Cardiovascular Exam: REGULAR RHYTHM, +S1, +S2 - GI/Abdominal Exam GI & Abdominal Exam: Soft, Normal Bowel Sounds. absent: Distended, Guarding, Tenderness Additional comments: grastostomy tube in place, intact Wound vac in place at midline abdomen, clean and intact, not leaking - Extremities Exam Extremities Exam: Full ROM, Normal Capillary Refill, Normal Inspection - Back Exam Back Exam: Full ROM, NORMAL INSPECTION - Neurological Exam Neurological Exam: Alert, Awake, Oriented x3 - Psychiatric Exam Psychiatric exam: Normal Affect, Normal Mood - Skin Skin Exam: Dry, Intact, Normal Color, Warm Assessment and Plan - Assessment and Plan (Free Text) Plan: Ischemic bowel disease 2/2 internal hernia producing bowel obstruction Current drains include: NGT (intermittent suction per surgery recs), gastrostomy tube (replaced 06/10/18) Latest wound cultures: -Abd incision, Peg incision site => Pseudomonas aeruginosa, sensitive to Meropenem -Per ID: Meropenem 1 g q 8 h, Vancomycin 1.5 g IVPB q 12 h (d/c on 07/05/18) -vanco trough 07/05 -- 15.1 Surgery (Dr. Harley) consulted - awaiting Dr Mccray's response on surgical intervention Wound vac to continuous suction, to be replaced Q72hrs, next change 07/07 -- obtain wound culture on next wound vac change. Heme/onc (Dr. Cash) consulted for Fe status - repeat ferritin 185, no need for iron infusion at this time, anemia stable today Other cultures: 06/22/18: abd incision => Pseudomonas aeruginosa sensitive to Meropenem 06/22/18: Peg site => Pseudomonas aeruginosa sensitive to Meropenem 05/14/18: Peritoneal fluid => Pseudomonas aeruginosa sensitive to Meropenem 05/23/18: Wound cx => Yudith albicans 05/15/18, 05/22/18: Blood cx => no growth 05/22/18: Urine cx => no growth 05/31/18: Incision site => Enterococcus faecalis, Acinetobacter baumannii 06/03/18: Stool cxs => No Salmonella, Shigella, or Campylobacter isolates 06/13/18: Repeat wound cx => Coag-neg Staph, Enterococcus raffinosus Antibiotics: Meropenem 1 g q 8 h IVPB Vancomycin 1.5 g IV q 12 h (started 06/16 at 12 pm), discontinued as per Dr Rivera on 07/05 Cipro 400 mg IV q 12h d/c'd (started 06/02/18, last day 06/16/18) Flagyl 500 mg IVPB q 8 h completed (active from 05/15/18-06/19/18) gentamicin 0.1% TOP TID apply cream to peg tube site F/u vitamin levels and replace as needed: Vit D < 12.8, 03952 U q1 wk x 8 wks B12 707, wnl Folate 12.6, wnl Vit A 42, wnl Alpha vit E 5.6, wnl Vit A, B1, B6, E levels reordered on 06/15 Vit B1: inappropriately submitted, 06/01/18 valve acceptable Vit B6: 5.9, wnl Vit A, E collected C/w Tylenol 975 mg liquid q 8h, Dilaudid 1 mg q 3 h prn, Zofran 4 mg IV q 6 h prn Tachycardia, persistent, hx into 110s-130s - possible etiologies include pain, infection, anxiety 07/05 HR - 98 Tx for L G tube fluid infection Ativan prn, Dilaudid prn C/w metoprolol tartrate 12.5 mg bid Diarrhea, acute improving - suspect 2/2 PO intake by patient C. Diff (05/22, 05/24, 05/28) neg Stool ova and parasites (05/25/18) neg Stool leukocytes (05/25/18) neg Flagyl course finished Imodium 1 mg PO q 2h prn Anxiety Training And Development Professional consulted - pt initially refused but then accepted Psych consulted (Dr. Reyez) - managing Ativan, c/w prn Lexapro 10 mg GT daily (started 05/31) Insomnia - Benadryl d/c'd, clinically not indicated Anemia, acute, stable, pt denies blood in stool Total 2 PRBC (on 05/16) and 4 FFP (on 05/15 and 05/16) 07/04 hb 8.9, hct: 26.8 Iron 16, TIBC 205, % sat 4.7, repeat ferritin 185 after Ferrlecit Monitor CBC q2d Thrombocytosis - suspect reactive to pain, surgery; resolved 07/04 platelets: 246 Monitor CBC q2d DM2, controlled From prior note: admittedly non-compliant, has not taken Januvia for 1 y Accuchecks q6h Hypoglycemic protocol ISS regular HgbA1c 5.8 Hx gastric bypass surgery Hypercholesterolemia, untx LDL < 30, HDL < 23, Chol 59, TG 195 (06/03/18) Hx gastric bypass surgery Questran 4 g PO bid Hx HTN, controlled Since gastric bypass has not taken meds Metoprolol 12.5 mg bid Hx Asthma - Chronic Continue to monitor Nicotine use disorder - Chronic From prior note: 1 ppd x 20 y, 1/2 ppd x 3 y C/w Nicoderm patch Electrolyte imbalance - Hypokalemia, Hypomagnesemia - Resolved 06/03 labs - Na 139, K 3.8, Cl 103, Bicarb 30, BUN 3, Cr 0.3, glucose 75 F/u am labs, replete as needed PPX, Diet, Dispo Hydrocortisone 1% cream top tid for R upper inner arm macular rash - improved Vitamin A+D top q 8h prn for dry lips Saliva substitute q 6 h prn for dry mouth IVF not indicated at this time VTE ppx: Lovenox 40 subQ d, SCDs, encourage ambulation GI ppx: Protonic 40 mg IV bid, Florastor bid Code status: Full code Continue PT services, follow up recs. Plan discussed with Dr Burke Banegas, PGY-1 <Doretha Turk V - Last Filed: 07/06/18 16:56> Objective - Vital Signs/Intake and Output Vital Signs (last 24 hours): Temp Pulse Resp BP Pulse Ox 97.9 F 90 18 119/84 96 07/06/18 07:00 07/06/18 07:00 07/06/18 07:00 07/06/18 07:00 07/06/18 07:00 Intake and Output: 07/06/18 07/06/18 06:59 18:59 Intake Total 1400 350 Output Total 100 160 Balance 1300 190 - Medications Medications: Current Medications Acetaminophen (Tylenol 650mg/20.3ml Solution Ud) 975 mg GT Q8H PRN PRN Reason: Pain, Mild (1-3) Calcium Acetate (Phoslo) 667 mg GT TIDCC [facility] Last Admin: 07/06/18 13:12 Dose: 667 mg Cholestyramine Resin (Questran) 4 gm PO BID [facility] Last Admin: 07/06/18 10:13 Dose: 4 gm Dextrose (Dextrose 50% Inj) 0 ml IV STAT PRN; Protocol PRN Reason: Hypoglycemia Protocol Dextrose (Glutose 15) 0 gm PO ONCE PRN; Protocol PRN Reason: Hypoglycemia Protocol Enoxaparin Sodium (Lovenox) 40 mg SC DAILY [facility] Last Admin: 07/06/18 10:13 Dose: 40 mg Ergocalciferol (Drisdol 50,000 Intl Units Cap) 1 cap PO Q7D [facility] Stop: 07/20/18 10:01 Last Admin: 07/06/18 13:12 Dose: 1 cap Escitalopram Oxalate (Lexapro) 10 mg GT DAILY [facility] Last Admin: 07/06/18 10:09 Dose: 10 mg Gentamicin Sulfate (Gentamicin 0.1%) 0 gm TOP TID [facility] Last Admin: 07/06/18 13:15 Dose: 1 oin Glucagon (Glucagen Diagnostic Kit) 0 mg IM STAT PRN; Protocol PRN Reason: Hypoglycemia Protocol Hydrocortisone (Cortizone 1% Cream) 0 gm TOP TID PRN PRN Reason: Rash Hydromorphone HCl (Dilaudid) 1 mg IVP Q3 PRN PRN Reason: Pain, SEVERE (8-10) Last Admin: 07/06/18 16:01 Dose: 1 mg Meropenem 1 gm/ Sodium (Chloride) 100 mls @ 100 mls/hr IVPB Q8H [facility]; Protocol Last Admin: 07/06/18 16:01 Dose: 100 mls/hr Insulin Human Regular (Novolin R) 0 unit SC ACHS [facility]; Protocol Last Admin: 07/06/18 12:22 Dose: Not Given Ipratropium [place] (Atrovent) 0.5 mg IH RQ6 [facility] Last Admin: 07/06/18 13:09 Dose: 0.5 mg Lactobacillus Acidophilus (Bacid Acidophilus) 1 cap PEG BID [facility] Last Admin: 07/06/18 10:13 Dose: 1 cap Loperamide HCl (Imodium) 1 mg PO Q2H PRN PRN Reason: Diarrhea Last Admin: 07/06/18 10:21 Dose: 1 mg Lorazepam (Ativan) 1 mg IVP BID [facility] Last Admin: 07/06/18 10:09 Dose: 1 mg Metoprolol Tartrate (Lopressor) 12.5 mg PEG BID [facility] Last Admin: 07/06/18 10:09 Dose: 12.5 mg Nicotine (Nicoderm Cq) 1 patch TD DAILY [facility] Last Admin: 07/06/18 10:13 Dose: 1 patch Ondansetron HCl (Zofran Inj) 4 mg IVP Q6H PRN PRN Reason: Nausea/Vomiting Last Admin: 07/06/18 13:13 Dose: 4 mg Pantoprazole Sodium (Protonix Susp) 40 mg PO DAILY [facility] Last Admin: 07/06/18 10:13 Dose: 40 mg Saliva Substitute (Mouth Kote 236 Ml) 0 ml MM Q6 PRN PRN Reason: Dry mouth Vitamin A (Vitamin A & D Oint Ud Foilpak) 1 ea TOP Q8 PRN PRN Reason: dry lips Vitamin E (Vitamin E 400 Units Cap) 400 intlu GT DAILY [facility] Last Admin: 07/06/18 10:13 Dose: 400 intlu - Labs Labs: 07/06/18 07:37 07/06/18 07:37 PT 14.3 SECONDS (9.7-12.2) H 06/10/18 07:05 INR 1.3 06/10/18 07:05 APTT 33 SECONDS (21-34) 05/25/18 06:16 Assessment and Plan (1) Ischemic bowel disease Status: Acute (2) Obesity (BMI 30-39.9) Status: Acute (3) Small bowel obstruction Status: Acute (4) Prophylactic measure Status: Acute Attending/Attestation - Attestation I have personally seen and examined this patient.: Yes I have fully participated in the care of the patient.: Yes I have reviewed all pertinent clinical information, including history, physical exam and plan: Yes Notes (Text): This is a late computer entry for 07/05/2018. Please note delay given the EMR was partially shut down for the first half of this day. Patient seen, examined, case discussed with medical assisting program director. Patient seen at bedside this morning with medical team. Discussed with patient's nurse. Patient's NG tube continues to have high output in spite of nothing by mouth status as well as there is output from the wound VAC as well. Patient has been reiterated many many many times to stop drinking fluids and to stop having ice chips. She continues to deny that she has anything by mouth however when I speak with the surgery resident indicated to me that she should not be having this high output if she is truly strict nothing by mouth. Patient is aware that she will prevent having future surgery if she does not remain compliant this has been indicated to her many times personally by me throughout [facility]. Patient is currently in on IV antibiotics to cover for abdominal wound infections he will need to follow-up with ID. It Is unclear when patient's takeback surgery would be this point. I did attempt to speak with patient's mother on rounds however she is not available on the phone.. I did speak with case management it appears that letter that the mother is requesting is more a medical necessity for the patient to have a separate room however it's quite unclear if patient requires a separate room since she is not medically stable to leave the hospital given that she will need further surgery to reconnect her bowel. Patient is presently in a separate room to isolate infection that could be spread by contact. We'll need to indicate that to mother. Also did speak with surgically resident since patient has had NG tube and noting some discomfort in back of the mouth. There is no lesions behind the mouth. And noted by instructor adjunct surgical technician Thomas Moise, have patient has nasal necrosis is a right to keep the NG tube there for quite some time.
[2018-07-06] MEDS: Ipratropium 0.02% Inhal Soln (0.5 mg/2.5 ml) UD IH SCH ×4 (01:27→19:51)
--- NOTE | 2018-07-06 03:46 | PN ---
DATE: 07/05/2018 SUBJECTIVE: The patient was afebrile. She has been asking to get the surgery done. PHYSICAL EXAMINATION VITAL SIGNS: T-max is 99, pulse 99, blood pressure 122/84, respirations are 20. GENERAL: She, otherwise, has no pains. No new complaints. She just wants to get over her GI tract surgery. HEENT: Head is atraumatic and normocephalic. NECK: Supple. LUNGS: Clear. HEART: S1 and S2 regular. ABDOMEN: Has a surgical dressing. The wound has been healing well and two areas are left. Otherwise, it is practically healed. Laparoscopic jejunostomy tube is present. EXTREMITIES: No edema. I have seen the wound yesterday, and the patient remains on antibiotic, and she is waiting for her surgery as she is not able to eat by mouth. We will continue meropenem for now and she is on meropenem, and we will continue that and probably can discontinue vancomycin as wound is appropriately healing. Guero Rivera MD
[2018-07-06] MEDS: Meropenem 1 GM in Sodium Chloride 0.9% 100 ML IVPB SCH ×3 (07:10→22:43)
[2018-07-06 07:44] LABS: BASO # 0.1 K/uL (0.0-0.2); EOS # 0.5 K/uL (0.0-0.7); EOS % 8.7 % (0.0-4.0); LYMPH # 1.8 K/uL (1.0-4.3); LYMPH % 30.7 % (20.0-40.0); MEAN CELL VOLUME 88.2 fL (81.0-99.0); MEAN CORPUSCULAR HEMOGLOBIN 29.4 pg (27.0-31.0); MEAN CORPUSCULAR HGB CONC 33.3 g/dL (33.0-37.0); MEAN PLATELET VOLUME 7.6 fL (7.2-11.7); MONO # 0.4 K/uL (0.0-0.8); MONO % 7.4 % (0.0-10.0); NEUT # 3.1 K/uL (1.8-7.0); NEUT % 52.2 % (50.0-75.0); RBC 3.06 Mil/uL (3.80-5.20); RED CELL DISTRIBUTION WIDTH 17.9 % (11.5-14.5)
[2018-07-06 08:02] LABS: ALB/GLOB RATIO 0.9 (1.0-2.1); ALBUMIN 2.6 g/dL (3.5-5.0); ALT/SGPT 25 U/L (9-52); AST/SGOT 17 U/L (14-36); BLOOD UREA NITROGEN 3 mg/dL (7-17); CALCIUM 8.1 mg/dl (8.6-10.4); GFR NON-AFRICAN AMERICAN > 60
[2018-07-06] MEDS: Lactobacillus Acidophilus 500 MU Cap PEG SCH ×2 (10:13→17:57)
[2018-07-06] MEDS: Pantoprazole 40 mg Susp UD PO SCH (10:13)
[2018-07-06] MEDS: Cholestyramine 4 gm/Pkt UD PO SCH ×2 (10:13→17:57)
[2018-07-06] MEDS: Enoxaparin 40 mg Syringe SC SCH (10:13)
[2018-07-06] MEDS: GENTAMICIN 0.1% TOP SCH ×3 (10:14→17:58)
[2018-07-06] MEDS: (Novolin R) Insulin Human Regular 100 units/ml vial SC SCH ×4 (10:14→21:15)
[2018-07-06] MEDS: Loperamide Hydrochloride 1 mg/5 ml Cup PO PRN ×2 (10:21→18:03)
[2018-07-06] MEDS: Ergocalciferol 50,000 Intl Units Cap PO SCH (13:12)
--- NOTE | 2018-07-06 18:58 | CP.PCM.PN ---
<Morris Connolly - Last Filed: 07/06/18 19:03> Subjective - Date & Time of Evaluation Date of Evaluation: 07/06/18 Time of Evaluation: 09:10 - Subjective Subjective: Progress Note for Hospitalist Service Pt seen and examined at bedside this am. Observed resting comfortably at bedside, denies any acute complaints. No acute events reported overnight by tax staff accountant. Pt denies fever, chills, chest pain, shortness of breath, n/v/d/c, abd pain, urinary complaints, or other symptoms. 600 cc expressed from NGT over past 12 hrs. Objective - Vital Signs/Intake and Output Vital Signs (last 24 hours): Temp Pulse Resp BP Pulse Ox 99.2 F 89 20 133/91 H 96 07/06/18 15:00 07/06/18 15:00 07/06/18 15:00 07/06/18 15:00 07/06/18 15:00 Intake and Output: 07/06/18 07/06/18 06:59 18:59 Intake Total 1400 350 Output Total 100 160 Balance 1300 190 - Medications Medications: Current Medications Acetaminophen (Tylenol 650mg/20.3ml Solution Ud) 975 mg GT Q8H PRN PRN Reason: Pain, Mild (1-3) Calcium Acetate (Phoslo) 667 mg GT TIDCC [facility] Last Admin: 07/06/18 17:57 Dose: 667 mg Cholestyramine Resin (Questran) 4 gm PO BID [facility] Last Admin: 07/06/18 17:57 Dose: 4 gm Dextrose (Dextrose 50% Inj) 0 ml IV STAT PRN; Protocol PRN Reason: Hypoglycemia Protocol Dextrose (Glutose 15) 0 gm PO ONCE PRN; Protocol PRN Reason: Hypoglycemia Protocol Enoxaparin Sodium (Lovenox) 40 mg SC DAILY [facility] Last Admin: 07/06/18 10:13 Dose: 40 mg Ergocalciferol (Drisdol 50,000 Intl Units Cap) 1 cap PO Q7D [facility] Stop: 07/20/18 10:01 Last Admin: 07/06/18 13:12 Dose: 1 cap Escitalopram Oxalate (Lexapro) 10 mg GT DAILY [facility] Last Admin: 07/06/18 10:09 Dose: 10 mg Gentamicin Sulfate (Gentamicin 0.1%) 0 gm TOP TID [facility] Last Admin: 07/06/18 17:58 Dose: 1 oin Glucagon (Glucagen Diagnostic Kit) 0 mg IM STAT PRN; Protocol PRN Reason: Hypoglycemia Protocol Hydrocortisone (Cortizone 1% Cream) 0 gm TOP TID PRN PRN Reason: Rash Hydromorphone HCl (Dilaudid) 1 mg IVP Q3 PRN PRN Reason: Pain, SEVERE (8-10) Last Admin: 07/06/18 16:01 Dose: 1 mg Meropenem 1 gm/ Sodium (Chloride) 100 mls @ 100 mls/hr IVPB Q8H [facility]; Protocol Last Admin: 07/06/18 16:01 Dose: 100 mls/hr Insulin Human Regular (Novolin R) 0 unit SC ACHS [facility]; Protocol Last Admin: 07/06/18 17:46 Dose: Not Given Ipratropium [place] (Atrovent) 0.5 mg IH RQ6 [facility] Last Admin: 07/06/18 13:09 Dose: 0.5 mg Lactobacillus Acidophilus (Bacid Acidophilus) 1 cap PEG BID [facility] Last Admin: 07/06/18 17:57 Dose: 1 cap Loperamide HCl (Imodium) 1 mg PO Q2H PRN PRN Reason: Diarrhea Last Admin: 07/06/18 18:03 Dose: 1 mg Lorazepam (Ativan) 1 mg IVP BID [facility] Last Admin: 07/06/18 17:57 Dose: 1 mg Metoprolol Tartrate (Lopressor) 12.5 mg PEG BID [facility] Last Admin: 07/06/18 17:58 Dose: 12.5 mg Nicotine (Nicoderm Cq) 1 patch TD DAILY [facility] Last Admin: 07/06/18 10:13 Dose: 1 patch Ondansetron HCl (Zofran Inj) 4 mg IVP Q6H PRN PRN Reason: Nausea/Vomiting Last Admin: 07/06/18 13:13 Dose: 4 mg Pantoprazole Sodium (Protonix Susp) 40 mg PO DAILY [facility] Last Admin: 07/06/18 10:13 Dose: 40 mg Saliva Substitute (Mouth Kote 236 Ml) 0 ml MM Q6 PRN PRN Reason: Dry mouth Vitamin A (Vitamin A & D Oint Ud Foilpak) 1 ea TOP Q8 PRN PRN Reason: dry lips Vitamin E (Vitamin E 400 Units Cap) 400 intlu GT DAILY [facility] Last Admin: 07/06/18 10:13 Dose: 400 intlu - Labs Labs: 07/06/18 07:37 07/06/18 07:37 PT 14.3 SECONDS (9.7-12.2) H 06/10/18 07:05 INR 1.3 06/10/18 07:05 APTT 33 SECONDS (21-34) 05/25/18 06:16 - Head Exam Head Exam: ATRAUMATIC, NORMOCEPHALIC - Eye Exam Eye Exam: EOMI, Normal appearance, PERRL - ENT Exam ENT Exam: Mucous Membranes Moist Additional comments: NGT in place, not dislodged - Respiratory Exam Respiratory Exam: Clear to Ausculation Bilateral, NORMAL BREATHING PATTERN. absent: Rales, Rhonchi, Wheezes - Cardiovascular Exam Cardiovascular Exam: REGULAR RHYTHM, +S1, +S2. absent: Gallop, Rubs, Murmur - GI/Abdominal Exam GI & Abdominal Exam: Soft, Normal Bowel Sounds. absent: Rigid, Tenderness Additional comments: Abdominal wound vac in place c/d/i, gastrostomy tube in place - Extremities Exam Extremities Exam: Full ROM, Normal Capillary Refill, Normal Inspection. absent: Pedal Edema - Neurological Exam Neurological Exam: Alert, Awake, CN II-XII Intact, Oriented x3 - Skin Skin Exam: Dry, Intact, Warm Assessment and Plan - Assessment and Plan (Free Text) Assessment: 38 y o female with PMHx HTN, HLD, DM2, asthma, s/p bowel resection (05/14/18, 05/16/18) 2/2 internal hernia s/p Binta-en-[id number] gastric bypass in 2013, admitted for medical optimization prior to reveral of bypass. Plan: Ischemic bowel disease 2/2 internal hernia producing bowel obstruction Current drains include: NGT (intermittent suction per surgery recs), gastrostomy tube (replaced 06/10/18) Latest wound cultures: -Abd incision, Peg incision site => Pseudomonas aeruginosa, sensitive to Meropenem -Per ID: Meropenem 1 g q 8 h, Vancomycin 1.5 g IVPB q 12 h (d/c on 07/05/18) -vanco trough 07/05 -- 15.1 Surgery (Dr. Harley) consulted - awaiting Dr Mccray's response on surgical intervention; f/u with surgical team regarding dispo Wound vac to continuous suction, to be replaced Q72hrs, next change 07/07 -- obtain wound culture on next wound vac change Heme/onc (Dr. Cash) consulted for Fe status - repeat ferritin 185, no need for iron infusion at this time, anemia stable today, continue to monitor Other cultures: 06/22/18: abd incision => Pseudomonas aeruginosa sensitive to Meropenem 06/22/18: Peg site => Pseudomonas aeruginosa sensitive to Meropenem 05/14/18: Peritoneal fluid => Pseudomonas aeruginosa sensitive to Meropenem 05/23/18: Wound cx => Yudith albicans 05/15/18, 05/22/18: Blood cx => no growth 05/22/18: Urine cx => no growth 05/31/18: Incision site => Enterococcus faecalis, Acinetobacter baumannii 06/03/18: Stool cxs => No Salmonella, Shigella, or Campylobacter isolates 06/13/18: Repeat wound cx => Coag-neg Staph, Enterococcus raffinosus Antibiotics: Meropenem 1 g q 8 h IVPB Vancomycin 1.5 g IV q 12 h (started 06/16 at 12 pm), discontinued as per Dr Rivera on 07/05 Cipro 400 mg IV q 12h d/c'd (started 06/02/18, last day 06/16/18) Flagyl 500 mg IVPB q 8 h completed (active from 05/15/18-06/19/18) Gentamicin 0.1% TOP TID apply cream to peg tube site F/u vitamin levels and replace as needed: Vit D < 12.8, 26739 U q1 wk x 8 wks B12 707, wnl Folate 12.6, wnl Vit A 42, wnl Alpha vit E 5.6, wnl Vit A, B1, B6, E levels reordered on 06/15 Vit B1: inappropriately submitted, 06/01/18 valve acceptable Vit B6: 5.9, wnl Vit A, E collected C/w Tylenol 975 mg liquid q 8h, Dilaudid 1 mg q 3 h prn d/c'd (pt not c/o pain at this time), Zofran 4 mg IV q 6 h prn Tachycardia, persistent, hx into 110s-130s - possible etiologies include pain, infection, anxiety 07/05 HR - 104 Tx for L G tube fluid infection Ativan prn, Dilaudid d/c'd C/w metoprolol tartrate 12.5 mg bid Diarrhea, acute improving - suspect 2/2 PO intake by patient C. Diff (05/22, 05/24, 05/28) neg Stool ova and parasites (05/25/18) neg Stool leukocytes (05/25/18) neg Flagyl course finished Imodium 1 mg PO q 2h prn Anxiety Intelligence Agent consulted - pt initially refused but then accepted Psych consulted (Dr. Reyez) - managing Ativan, c/w prn Lexapro 10 mg GT daily (started 05/31) Insomnia - Benadryl d/c'd, clinically not indicated Anemia, acute, stable, pt denies blood in stool Total 2 PRBC (on 05/16) and 4 FFP (on 05/15 and 05/16) 07/06 hb 9, hct: 27 Iron 16, TIBC 205, % sat 4.7, repeat ferritin 185 after Ferrlecit Monitor CBC q2d Thrombocytosis - suspect reactive to pain, surgery; resolved 07/06 platelets: 267 Monitor CBC q2d DM2, controlled From prior note: admittedly non-compliant, has not taken Januvia for 1 y Accuchecks q6h Hypoglycemic protocol ISS regular HgbA1c 5.8 Hx gastric bypass surgery Hypercholesterolemia, untx LDL < 30, HDL < 23, Chol 59, TG 195 (06/03/18) Hx gastric bypass surgery Questran 4 g PO bid Hx HTN, controlled Since gastric bypass has not taken meds Metoprolol 12.5 mg bid Hx Asthma - Chronic Continue to monitor Nicotine use disorder - Chronic From prior note: 1 ppd x 20 y, 1/2 ppd x 3 y C/w Nicoderm patch Electrolyte imbalance - Hypokalemia, Hypomagnesemia - Resolved F/u am labs, replete as needed PPX, Diet, Dispo Hydrocortisone 1% cream top tid for R upper inner arm macular rash - improved Vitamin A+D top q 8h prn for dry lips Saliva substitute q 6 h prn for dry mouth IVF not indicated at this time VTE ppx: Lovenox 40 subQ d, SCDs, encourage ambulation GI ppx: Protonic 40 mg IV bid, Florastor bid Code status: Full code Continue PT services, follow up recs Pending surgery recs regarding dispo for planned reversal of surgical procedure Pt seen, examined with and plan discussed with Dr. Kirby, attending. Morris Connolly DO PGY-1, Metal Patternmaker Apprentice Pager #[phone] <Wesley Kirby - Last Filed: 08/04/18 13:42> Attending/Attestation - Attestation I have personally seen and examined this patient.: Yes I have fully participated in the care of the patient.: Yes I have reviewed all pertinent clinical information, including history, physical exam and plan: Yes Notes (Text): Ischemic bowel disease 2/2 internal hernia producing bowel obstruction Chronic pain syndrome Diarrhea awaiting final decision re surgery to connect stomach with bowel based on nutritional status to be determined by surgery
--- NOTE | 2018-07-06 20:42 | CP.PCM.PN ---
Subjective - Date & Time of Evaluation Date of Evaluation: 07/05/18 Time of Evaluation: 13:00 - Subjective Subjective: No complaints. Objective - Vital Signs/Intake and Output Vital Signs (last 24 hours): Temp Pulse Resp BP Pulse Ox 99.2 F 89 20 133/91 H 96 07/06/18 15:00 07/06/18 15:00 07/06/18 15:00 07/06/18 15:00 07/06/18 15:00 Intake and Output: 07/06/18 07/07/18 18:59 06:59 Intake Total 350 Output Total 160 Balance 190 - Medications Medications: Current Medications Acetaminophen (Tylenol 650mg/20.3ml Solution Ud) 975 mg GT Q8H PRN PRN Reason: Pain, Mild (1-3) Calcium Acetate (Phoslo) 667 mg GT TIDCC [facility] Last Admin: 07/06/18 17:57 Dose: 667 mg Cholestyramine Resin (Questran) 4 gm PO BID [facility] Last Admin: 07/06/18 17:57 Dose: 4 gm Dextrose (Dextrose 50% Inj) 0 ml IV STAT PRN; Protocol PRN Reason: Hypoglycemia Protocol Dextrose (Glutose 15) 0 gm PO ONCE PRN; Protocol PRN Reason: Hypoglycemia Protocol Enoxaparin Sodium (Lovenox) 40 mg SC DAILY [facility] Last Admin: 07/06/18 10:13 Dose: 40 mg Ergocalciferol (Drisdol 50,000 Intl Units Cap) 1 cap PO Q7D [facility] Stop: 07/20/18 10:01 Last Admin: 07/06/18 13:12 Dose: 1 cap Escitalopram Oxalate (Lexapro) 10 mg GT DAILY [facility] Last Admin: 07/06/18 10:09 Dose: 10 mg Gentamicin Sulfate (Gentamicin 0.1%) 0 gm TOP TID [facility] Last Admin: 07/06/18 17:58 Dose: 1 oin Glucagon (Glucagen Diagnostic Kit) 0 mg IM STAT PRN; Protocol PRN Reason: Hypoglycemia Protocol Hydrocortisone (Cortizone 1% Cream) 0 gm TOP TID PRN PRN Reason: Rash Hydromorphone HCl (Dilaudid) 1 mg IVP Q3 PRN PRN Reason: Pain, SEVERE (8-10) Last Admin: 07/06/18 18:58 Dose: 1 mg Meropenem 1 gm/ Sodium (Chloride) 100 mls @ 100 mls/hr IVPB Q8H [facility]; Protocol Last Admin: 07/06/18 16:01 Dose: 100 mls/hr Insulin Human Regular (Novolin R) 0 unit SC ACHS [facility]; Protocol Last Admin: 07/06/18 17:46 Dose: Not Given Ipratropium [place] (Atrovent) 0.5 mg IH RQ6 [facility] Last Admin: 07/06/18 19:51 Dose: 0.5 mg Lactobacillus Acidophilus (Bacid Acidophilus) 1 cap PEG BID [facility] Last Admin: 07/06/18 17:57 Dose: 1 cap Loperamide HCl (Imodium) 1 mg PO Q2H PRN PRN Reason: Diarrhea Last Admin: 07/06/18 18:03 Dose: 1 mg Lorazepam (Ativan) 1 mg IVP BID [facility] Last Admin: 07/06/18 17:57 Dose: 1 mg Metoprolol Tartrate (Lopressor) 12.5 mg PEG BID [facility] Last Admin: 07/06/18 17:58 Dose: 12.5 mg Nicotine (Nicoderm Cq) 1 patch TD DAILY [facility] Last Admin: 07/06/18 10:13 Dose: 1 patch Ondansetron HCl (Zofran Inj) 4 mg IVP Q6H PRN PRN Reason: Nausea/Vomiting Last Admin: 07/06/18 13:13 Dose: 4 mg Pantoprazole Sodium (Protonix Susp) 40 mg PO DAILY [facility] Last Admin: 07/06/18 10:13 Dose: 40 mg Saliva Substitute (Mouth Kote 236 Ml) 0 ml MM Q6 PRN PRN Reason: Dry mouth Vitamin A (Vitamin A & D Oint Ud Foilpak) 1 ea TOP Q8 PRN PRN Reason: dry lips Vitamin E (Vitamin E 400 Units Cap) 400 intlu GT DAILY [facility] Last Admin: 07/06/18 10:13 Dose: 400 intlu - Labs Labs: 07/06/18 07:37 07/06/18 07:37 PT 14.3 SECONDS (9.7-12.2) H 06/10/18 07:05 INR 1.3 06/10/18 07:05 APTT 33 SECONDS (21-34) 05/25/18 06:16 - Head Exam Head Exam: ATRAUMATIC - Eye Exam Eye Exam: Normal appearance - ENT Exam ENT Exam: Mucous Membranes Dry - Respiratory Exam Respiratory Exam: NORMAL BREATHING PATTERN - Cardiovascular Exam Cardiovascular Exam: +S1, +S2 - GI/Abdominal Exam GI & Abdominal Exam: Normal Bowel Sounds Assessment and Plan (1) Anemia Assessment & Plan: iron deficiency anemia resolved s/p IV iron anemia of chronic disease; will consider Procrit supplementation in an attempt to avoid further transfusions FOBT positive transfuse PRN Status: Acute
--- NOTE | 2018-07-06 20:43 | CP.PCM.PN ---
Subjective - Date & Time of Evaluation Date of Evaluation: 07/06/18 Time of Evaluation: 17:00 - Subjective Subjective: No complaints. Objective - Vital Signs/Intake and Output Vital Signs (last 24 hours): Temp Pulse Resp BP Pulse Ox 99.2 F 89 20 133/91 H 96 07/06/18 15:00 07/06/18 15:00 07/06/18 15:00 07/06/18 15:00 07/06/18 15:00 Intake and Output: 07/06/18 07/07/18 18:59 06:59 Intake Total 350 Output Total 160 Balance 190 - Medications Medications: Current Medications Acetaminophen (Tylenol 650mg/20.3ml Solution Ud) 975 mg GT Q8H PRN PRN Reason: Pain, Mild (1-3) Calcium Acetate (Phoslo) 667 mg GT TIDCC [facility] Last Admin: 07/06/18 17:57 Dose: 667 mg Cholestyramine Resin (Questran) 4 gm PO BID [facility] Last Admin: 07/06/18 17:57 Dose: 4 gm Dextrose (Dextrose 50% Inj) 0 ml IV STAT PRN; Protocol PRN Reason: Hypoglycemia Protocol Dextrose (Glutose 15) 0 gm PO ONCE PRN; Protocol PRN Reason: Hypoglycemia Protocol Enoxaparin Sodium (Lovenox) 40 mg SC DAILY [facility] Last Admin: 07/06/18 10:13 Dose: 40 mg Ergocalciferol (Drisdol 50,000 Intl Units Cap) 1 cap PO Q7D [facility] Stop: 07/20/18 10:01 Last Admin: 07/06/18 13:12 Dose: 1 cap Escitalopram Oxalate (Lexapro) 10 mg GT DAILY [facility] Last Admin: 07/06/18 10:09 Dose: 10 mg Gentamicin Sulfate (Gentamicin 0.1%) 0 gm TOP TID [facility] Last Admin: 07/06/18 17:58 Dose: 1 oin Glucagon (Glucagen Diagnostic Kit) 0 mg IM STAT PRN; Protocol PRN Reason: Hypoglycemia Protocol Hydrocortisone (Cortizone 1% Cream) 0 gm TOP TID PRN PRN Reason: Rash Hydromorphone HCl (Dilaudid) 1 mg IVP Q3 PRN PRN Reason: Pain, SEVERE (8-10) Last Admin: 07/06/18 18:58 Dose: 1 mg Meropenem 1 gm/ Sodium (Chloride) 100 mls @ 100 mls/hr IVPB Q8H [facility]; Protocol Last Admin: 07/06/18 16:01 Dose: 100 mls/hr Insulin Human Regular (Novolin R) 0 unit SC ACHS [facility]; Protocol Last Admin: 07/06/18 17:46 Dose: Not Given Ipratropium [place] (Atrovent) 0.5 mg IH RQ6 [facility] Last Admin: 07/06/18 19:51 Dose: 0.5 mg Lactobacillus Acidophilus (Bacid Acidophilus) 1 cap PEG BID [facility] Last Admin: 07/06/18 17:57 Dose: 1 cap Loperamide HCl (Imodium) 1 mg PO Q2H PRN PRN Reason: Diarrhea Last Admin: 07/06/18 18:03 Dose: 1 mg Lorazepam (Ativan) 1 mg IVP BID [facility] Last Admin: 07/06/18 17:57 Dose: 1 mg Metoprolol Tartrate (Lopressor) 12.5 mg PEG BID [facility] Last Admin: 07/06/18 17:58 Dose: 12.5 mg Nicotine (Nicoderm Cq) 1 patch TD DAILY [facility] Last Admin: 07/06/18 10:13 Dose: 1 patch Ondansetron HCl (Zofran Inj) 4 mg IVP Q6H PRN PRN Reason: Nausea/Vomiting Last Admin: 07/06/18 13:13 Dose: 4 mg Pantoprazole Sodium (Protonix Susp) 40 mg PO DAILY [facility] Last Admin: 07/06/18 10:13 Dose: 40 mg Saliva Substitute (Mouth Kote 236 Ml) 0 ml MM Q6 PRN PRN Reason: Dry mouth Vitamin A (Vitamin A & D Oint Ud Foilpak) 1 ea TOP Q8 PRN PRN Reason: dry lips Vitamin E (Vitamin E 400 Units Cap) 400 intlu GT DAILY [facility] Last Admin: 07/06/18 10:13 Dose: 400 intlu - Labs Labs: 07/06/18 07:37 07/06/18 07:37 PT 14.3 SECONDS (9.7-12.2) H 06/10/18 07:05 INR 1.3 06/10/18 07:05 APTT 33 SECONDS (21-34) 05/25/18 06:16 - Head Exam Head Exam: ATRAUMATIC - Eye Exam Eye Exam: Normal appearance - ENT Exam ENT Exam: Mucous Membranes Dry - Respiratory Exam Respiratory Exam: NORMAL BREATHING PATTERN - Cardiovascular Exam Cardiovascular Exam: +S1, +S2 - GI/Abdominal Exam GI & Abdominal Exam: Normal Bowel Sounds Assessment and Plan (1) Anemia Assessment & Plan: iron deficiency anemia resolved s/p IV iron anemia of chronic disease; will consider Procrit supplementation in an attempt to avoid further transfusions FOBT positive transfuse PRN Status: Acute
--- NOTE | 2018-07-06 21:31 | CP.PCM.PN ---
Subjective - Date & Time of Evaluation Date of Evaluation: 07/06/18 Time of Evaluation: 14:20 - Subjective Subjective: dictated Objective - Vital Signs/Intake and Output Vital Signs (last 24 hours): Temp Pulse Resp BP Pulse Ox 99.2 F 89 20 133/91 H 96 07/06/18 15:00 07/06/18 15:00 07/06/18 15:00 07/06/18 15:00 07/06/18 15:00 Intake and Output: 07/06/18 07/07/18 18:59 06:59 Intake Total 350 Output Total 160 Balance 190 - Medications Medications: Current Medications Acetaminophen (Tylenol 650mg/20.3ml Solution Ud) 975 mg GT Q8H PRN PRN Reason: Pain, Mild (1-3) Calcium Acetate (Phoslo) 667 mg GT TIDCC [facility] Last Admin: 07/06/18 17:57 Dose: 667 mg Cholestyramine Resin (Questran) 4 gm PO BID [facility] Last Admin: 07/06/18 17:57 Dose: 4 gm Dextrose (Dextrose 50% Inj) 0 ml IV STAT PRN; Protocol PRN Reason: Hypoglycemia Protocol Dextrose (Glutose 15) 0 gm PO ONCE PRN; Protocol PRN Reason: Hypoglycemia Protocol Enoxaparin Sodium (Lovenox) 40 mg SC DAILY [facility] Last Admin: 07/06/18 10:13 Dose: 40 mg Ergocalciferol (Drisdol 50,000 Intl Units Cap) 1 cap PO Q7D [facility] Stop: 07/20/18 10:01 Last Admin: 07/06/18 13:12 Dose: 1 cap Escitalopram Oxalate (Lexapro) 10 mg GT DAILY [facility] Last Admin: 07/06/18 10:09 Dose: 10 mg Gentamicin Sulfate (Gentamicin 0.1%) 0 gm TOP TID [facility] Last Admin: 07/06/18 17:58 Dose: 1 oin Glucagon (Glucagen Diagnostic Kit) 0 mg IM STAT PRN; Protocol PRN Reason: Hypoglycemia Protocol Hydrocortisone (Cortizone 1% Cream) 0 gm TOP TID PRN PRN Reason: Rash Hydromorphone HCl (Dilaudid) 1 mg IVP Q3 PRN PRN Reason: Pain, SEVERE (8-10) Last Admin: 07/06/18 18:58 Dose: 1 mg Meropenem 1 gm/ Sodium (Chloride) 100 mls @ 100 mls/hr IVPB Q8H [facility]; Protocol Last Admin: 07/06/18 16:01 Dose: 100 mls/hr Insulin Human Regular (Novolin R) 0 unit SC ACHS [facility]; Protocol Last Admin: 07/06/18 21:15 Dose: Not Given Ipratropium [place] (Atrovent) 0.5 mg IH RQ6 [facility] Last Admin: 07/06/18 19:51 Dose: 0.5 mg Lactobacillus Acidophilus (Bacid Acidophilus) 1 cap PEG BID [facility] Last Admin: 07/06/18 17:57 Dose: 1 cap Loperamide HCl (Imodium) 1 mg PO Q2H PRN PRN Reason: Diarrhea Last Admin: 07/06/18 18:03 Dose: 1 mg Lorazepam (Ativan) 1 mg IVP BID [facility] Last Admin: 07/06/18 17:57 Dose: 1 mg Metoprolol Tartrate (Lopressor) 12.5 mg PEG BID [facility] Last Admin: 07/06/18 17:58 Dose: 12.5 mg Nicotine (Nicoderm Cq) 1 patch TD DAILY [facility] Last Admin: 07/06/18 10:13 Dose: 1 patch Ondansetron HCl (Zofran Inj) 4 mg IVP Q6H PRN PRN Reason: Nausea/Vomiting Last Admin: 07/06/18 13:13 Dose: 4 mg Pantoprazole Sodium (Protonix Susp) 40 mg PO DAILY [facility] Last Admin: 07/06/18 10:13 Dose: 40 mg Saliva Substitute (Mouth Kote 236 Ml) 0 ml MM Q6 PRN PRN Reason: Dry mouth Vitamin A (Vitamin A & D Oint Ud Foilpak) 1 ea TOP Q8 PRN PRN Reason: dry lips Vitamin E (Vitamin E 400 Units Cap) 400 intlu GT DAILY [facility] Last Admin: 07/06/18 10:13 Dose: 400 intlu - Labs Labs: 07/06/18 07:37 07/06/18 07:37 PT 14.3 SECONDS (9.7-12.2) H 06/10/18 07:05 INR 1.3 06/10/18 07:05 APTT 33 SECONDS (21-34) 05/25/18 06:16
[2018-07-07] MEDS: Ipratropium 0.02% Inhal Soln (0.5 mg/2.5 ml) UD IH SCH ×3 (01:10→19:41)
--- NOTE | 2018-07-07 02:47 | PN ---
DATE: 07/06/2018 SUBJECTIVE: The patient is still waiting for the plan for the surgery for GI She is still with the NG tube to suction, offers no new complaints. PHYSICAL EXAMINATION: HEENT: Head is atraumatic. NECK: Supple. LUNGS: Clear. HEART: S1, S2 are regular. EXTREMITIES: Remain without edema. Has dressing on the wound, but wound has mostly healed only two spot remaining, so I have discontinued vancomycin and left her on meropenem. She also has a jejunostomy tube site which has a dressing. LABORATORY DATA: Labs are noted. Labs show white count is 6, hemoglobin 9, hematocrit 27, platelet count is 267 and BUN is 3, creatinine 0.3. ASSESSMENT AND PLAN: The patient had ischemic bowel necrosis and is status post gastric bypass and is waiting for a final reconstructive surgery and the wounds had Pseudomonas, so she is on meropenem and we will continue the meropenem at this time. Guero Rivera MD
[2018-07-07] MEDS: Meropenem 1 GM in Sodium Chloride 0.9% 100 ML IVPB SCH ×3 (06:35→23:30)
[2018-07-07] MEDS: (Novolin R) Insulin Human Regular 100 units/ml vial SC SCH ×4 (08:40→21:40)
[2018-07-07] MEDS: Enoxaparin 40 mg Syringe SC SCH (09:41)
[2018-07-07] MEDS: Pantoprazole 40 mg Susp UD PO SCH (09:41)
[2018-07-07] MEDS: GENTAMICIN 0.1% TOP SCH ×3 (09:43→18:14)
[2018-07-07] MEDS: Cholestyramine 4 gm/Pkt UD PO SCH ×2 (09:46→17:44)
[2018-07-07] MEDS: Loperamide Hydrochloride 1 mg/5 ml Cup PO PRN (10:16)
[2018-07-07] MEDS ORDERED: Magnesium Oxide 400 mg Tab UD PO ONE ×2 (14:53→16:45)
--- NOTE | 2018-07-07 15:00 | CP.PCM.PN ---
<Morris Connolly - Last Filed: 07/07/18 18:04> Subjective - Date & Time of Evaluation Date of Evaluation: 07/07/18 Time of Evaluation: 09:15 - Subjective Subjective: Medicine Progress Note for Hospitalist Service Pt seen and examined at bedside this am. No acute events reported overnight. 50 cc fluids from NGT aspirated in past 12 hrs. Pt c/o productive cough with associated shortness of breath, worsening since last night, requesting steroid tx. Discussed with pt that she cannot take steroids often for symptoms due to concerns about wound healing s/p surgical procedures. Denies fever, chills, chest pain, n/v/d/c, urinary complaints, leg swelling, or other symptoms. Objective - Vital Signs/Intake and Output Vital Signs (last 24 hours): Temp Pulse Resp BP Pulse Ox 98.7 F 92 H 18 110/74 96 07/07/18 08:15 07/07/18 08:15 07/07/18 08:15 07/07/18 08:15 07/07/18 08:15 Intake and Output: 07/07/18 07/07/18 06:59 18:59 Intake Total 1000 Output Total 325 Balance 675 - Medications Medications: Current Medications Acetaminophen (Tylenol 650mg/20.3ml Solution Ud) 975 mg GT Q8H PRN PRN Reason: Pain, Mild (1-3) Calcium Acetate (Phoslo) 667 mg GT TIDCC [facility] Last Admin: 07/07/18 12:43 Dose: 667 mg Cholestyramine Resin (Questran) 4 gm PO BID [facility] Last Admin: 07/07/18 09:46 Dose: 4 gm Dextrose (Dextrose 50% Inj) 0 ml IV STAT PRN; Protocol PRN Reason: Hypoglycemia Protocol Dextrose (Glutose 15) 0 gm PO ONCE PRN; Protocol PRN Reason: Hypoglycemia Protocol Enoxaparin Sodium (Lovenox) 40 mg SC DAILY [facility] Last Admin: 07/07/18 09:41 Dose: 40 mg Ergocalciferol (Drisdol 50,000 Intl Units Cap) 1 cap PO Q7D [facility] Stop: 07/20/18 10:01 Last Admin: 07/06/18 13:12 Dose: 1 cap Escitalopram Oxalate (Lexapro) 10 mg GT DAILY [facility] Last Admin: 07/07/18 09:40 Dose: 10 mg Gentamicin Sulfate (Gentamicin 0.1%) 0 gm TOP TID [facility] Last Admin: 07/07/18 14:11 Dose: 1 oin Glucagon (Glucagen Diagnostic Kit) 0 mg IM STAT PRN; Protocol PRN Reason: Hypoglycemia Protocol Guaifenesin (Robitussin) 100 mg PO Q4H PRN PRN Reason: Cough Hydromorphone HCl (Dilaudid) 1 mg IVP Q3 PRN PRN Reason: Pain, SEVERE (8-10) Last Admin: 07/07/18 12:38 Dose: 1 mg Meropenem 1 gm/ Sodium (Chloride) 100 mls @ 100 mls/hr IVPB Q8H [facility]; Protocol Last Admin: 07/07/18 06:35 Dose: 100 mls/hr Potassium Chloride (Potassium Chloride 20 Meq/100 Ml) 20 meq in 100 mls @ 50 mls/hr IVPB ONCE ONE Stop: 07/07/18 16:54 Insulin Human Regular (Novolin R) 0 unit SC ACHS [facility]; Protocol Last Admin: 07/07/18 12:05 Dose: Not Given Ipratropium Isabella (Atrovent) 0.5 mg IH RQ6 [facility] Last Admin: 07/07/18 04:02 Dose: 0.5 mg Loperamide HCl (Imodium) 1 mg PO Q2H PRN PRN Reason: Diarrhea Last Admin: 07/07/18 10:16 Dose: 1 mg Lorazepam (Ativan) 1 mg IVP BID [facility] Last Admin: 07/07/18 09:31 Dose: 1 mg Metoprolol Tartrate (Lopressor) 12.5 mg PEG BID [facility] Last Admin: 07/07/18 09:40 Dose: 12.5 mg Nicotine (Nicoderm Cq) 1 patch TD DAILY [facility] Last Admin: 07/07/18 09:43 Dose: 1 patch Ondansetron HCl (Zofran Inj) 4 mg IVP Q6H PRN PRN Reason: Nausea/Vomiting Last Admin: 07/06/18 13:13 Dose: 4 mg Pantoprazole Sodium (Protonix Susp) 40 mg PO DAILY [facility] Last Admin: 07/07/18 09:41 Dose: 40 mg Saliva Substitute (Mouth Kote 236 Ml) 0 ml MM Q6 PRN PRN Reason: Dry mouth Vitamin A (Vitamin A & D Oint Ud Foilpak) 1 ea TOP Q8 PRN PRN Reason: dry lips Vitamin E (Vitamin E 400 Units Cap) 400 intlu GT DAILY [facility] Last Admin: 07/07/18 09:40 Dose: 400 intlu - Labs Labs: 07/06/18 07:37 07/06/18 07:37 PT 14.3 SECONDS (9.7-12.2) H 06/10/18 07:05 INR 1.3 06/10/18 07:05 APTT 33 SECONDS (21-34) 05/25/18 06:16 - Constitutional Appears: Non-toxic, No Acute Distress - Head Exam Head Exam: ATRAUMATIC, NORMOCEPHALIC - Eye Exam Eye Exam: EOMI, Normal appearance, PERRL - ENT Exam ENT Exam: Mucous Membranes Moist Additional comments: NGT in place, not dislodged - Respiratory Exam Respiratory Exam: Clear to Ausculation Bilateral, NORMAL BREATHING PATTERN. absent: Rales, Rhonchi, Wheezes - Cardiovascular Exam Cardiovascular Exam: Tachycardia, REGULAR RHYTHM, +S1, +S2 - GI/Abdominal Exam GI & Abdominal Exam: Soft. absent: Distended, Firm, Guarding, Rigid, Tenderness, Rebound Additional comments: Gastrostomy tube and abd wound vac in place, c/d/i - Extremities Exam Extremities Exam: Full ROM, Normal Capillary Refill, Normal Inspection. absent: Calf Tenderness, Pedal Edema - Neurological Exam Neurological Exam: Alert, Awake, CN II-XII Intact, Oriented x3 - Psychiatric Exam Psychiatric exam: Anxious - Skin Skin Exam: Dry, Intact, Warm Assessment and Plan - Assessment and Plan (Free Text) Assessment: 38 y o female with PMHx HTN, HLD, DM2, asthma, s/p bowel resection (05/14/18, 05/16/18) 2/2 internal hernia s/p Binta-en-[id number] gastric bypass in 2013, admitted for medical optimization prior to reversal of bypass. Plan: Ischemic bowel disease 2/2 internal hernia producing bowel obstruction Current drains include: NGT (intermittent suction per surgery recs), gastrostomy tube (replaced 06/10/18) Latest wound cultures: -Abd incision, Peg incision site => Pseudomonas aeruginosa, sensitive to Meropenem -Per ID: Meropenem 1 g q 8 h, Vancomycin 1.5 g IVPB q 12 h (d/c on 07/05/18) -vanco trough 07/05 -- 15.1 Surgery (Dr. Harley) consulted - awaiting Dr Mccray's response on surgical intervention; f/u with surgical team regarding dispo Wound vac to continuous suction, to be replaced Q72hrs, next change 07/07 -- obtain wound culture on next wound vac change Heme/onc (Dr. Cash) consulted for Fe status - repeat ferritin 185, no need for iron infusion at this time, anemia stable today, continue to monitor Other cultures: 06/22/18: abd incision => Pseudomonas aeruginosa sensitive to Meropenem 06/22/18: Peg site => Pseudomonas aeruginosa sensitive to Meropenem 05/14/18: Peritoneal fluid => Pseudomonas aeruginosa sensitive to Meropenem 05/23/18: Wound cx => Yudith albicans 05/15/18, 05/22/18: Blood cx => no growth 05/22/18: Urine cx => no growth 05/31/18: Incision site => Enterococcus faecalis, Acinetobacter baumannii 06/03/18: Stool cxs => No Salmonella, Shigella, or Campylobacter isolates 06/13/18: Repeat wound cx => Coag-neg Staph, Enterococcus raffinosus Antibiotics: Meropenem 1 g q 8 h IVPB Vancomycin 1.5 g IV q 12 h (started 06/16 at 12 pm), discontinued as per Dr Rivera on 07/05 Cipro 400 mg IV q 12h d/c'd (started 06/02/18, last day 06/16/18) Flagyl 500 mg IVPB q 8 h completed (active from 05/15/18-06/19/18) Gentamicin 0.1% TOP TID apply cream to peg tube site F/u vitamin levels and replace as needed: Vit D < 12.8, 13543 U q1 wk x 8 wks B12 707, wnl Folate 12.6, wnl Vit A 42, wnl Alpha vit E 5.6, wnl Vit A, B1, B6, E levels reordered on 06/15 Vit B1: inappropriately submitted, 06/01/18 valve acceptable Vit B6: 5.9, wnl Vit A, E collected C/w Tylenol 975 mg liquid q 8h, Dilaudid 1 mg q 3 h prn d/c'd (pt not c/o pain at this time), Zofran 4 mg IV q 6 h prn Tachycardia, persistent, hx into 110s-130s - possible etiologies include pain, infection, anxiety 07/05 HR - 104 Tx for L G tube fluid infection Ativan prn, Dilaudid d/c'd C/w metoprolol tartrate 12.5 mg bid Diarrhea, acute improving - suspect 2/2 PO intake by patient C. Diff (05/22, 05/24, 05/28) neg Stool ova and parasites (05/25/18) neg Stool leukocytes (05/25/18) neg Flagyl course finished Imodium 1 mg PO q 2h prn Anxiety [employer]fter Electrical consulted - pt initially refused but then accepted Psych consulted (Dr. Reyez) - managing Ativan, c/w prn Lexapro 10 mg GT daily (started 05/31) Insomnia - Benadryl d/c'd, clinically not indicated Anemia, acute, stable, pt denies blood in stool Total 2 PRBC (on 05/16) and 4 FFP (on 05/15 and 05/16) 07/06 hb 9, hct: 27 Iron 16, TIBC 205, % sat 4.7, repeat ferritin 185 after Ferrlecit Monitor CBC q2d Thrombocytosis - suspect reactive to pain, surgery; resolved 07/06 platelets: 267 Monitor CBC q2d DM2, controlled From prior note: admittedly non-compliant, has not taken Januvia for 1 y Accuchecks q6h Hypoglycemic protocol ISS regular HgbA1c 5.8 Hx gastric bypass surgery Hypercholesterolemia, untx LDL < 30, HDL < 23, Chol 59, TG 195 (06/03/18) Hx gastric bypass surgery Questran 4 g PO bid Hx HTN, controlled Since gastric bypass has not taken meds Metoprolol 12.5 mg bid Hx Asthma - Chronic Continue to monitor Atrovent prn Pt was c/o productive cough with phlegm today, Robitussin prn added, defer steroids at this time due to concern for wound healing s/p surgical procedures Nicotine use disorder - Chronic From prior note: 1 ppd x 20 y, 1/2 ppd x 3 y C/w Nicoderm patch Electrolyte imbalance - Hypokalemia, Hypomagnesemia F/u am labs, replete as needed Mg 1.6 today, K 3.5; s/p replacement, continue to trend on labs PPX, Diet, Dispo Hydrocortisone 1% cream top tid for R upper inner arm macular rash - improved Vitamin A+D top q 8h prn for dry lips Saliva substitute q 6 h prn for dry mouth IVF not indicated at this time VTE ppx: Lovenox 40 subQ d, SCDs, encourage ambulation GI ppx: Protonix 40 mg IV bid, Florastor bid Code status: Full code Continue PT services, follow up recs Pending surgery recs regarding dispo for planned reversal of surgical procedure; reached out to Dr. Mccray's office today regarding plan, waiting for callback. Pt seen, examined with and plan discussed with Dr. Kirby, attending. Morris Connolly DO PGY-1, [employer] Pager #[phone] <Wesley Kirby - Last Filed: 08/04/18 13:41> Attending/Attestation - Attestation I have personally seen and examined this patient.: Yes I have fully participated in the care of the patient.: Yes I have reviewed all pertinent clinical information, including history, physical exam and plan: Yes Notes (Text): Ischemic bowel disease 2/2 internal hernia producing bowel obstruction Chronic pain syndrome Diarrhea awaiting final decision re surgery to connect stomach with bowel based on nutritional status to be determined by surgery
--- NOTE | 2018-07-07 17:22 | CP.PCM.PN ---
Subjective - Date & Time of Evaluation Date of Evaluation: 07/07/18 Time of Evaluation: 15:00 - Subjective Subjective: dictated Objective - Vital Signs/Intake and Output Vital Signs (last 24 hours): Temp Pulse Resp BP Pulse Ox 98.2 F 83 18 138/97 H 97 07/07/18 15:05 07/07/18 15:05 07/07/18 15:05 07/07/18 15:05 07/07/18 15:05 Intake and Output: 07/07/18 07/07/18 06:59 18:59 Intake Total 1000 Output Total 325 Balance 675 - Medications Medications: Current Medications Acetaminophen (Tylenol 650mg/20.3ml Solution Ud) 975 mg GT Q8H PRN PRN Reason: Pain, Mild (1-3) Calcium Acetate (Phoslo) 667 mg GT TIDCC [facility] Last Admin: 07/07/18 12:43 Dose: 667 mg Cholestyramine Resin (Questran) 4 gm PO BID [facility] Last Admin: 07/07/18 09:46 Dose: 4 gm Dextrose (Dextrose 50% Inj) 0 ml IV STAT PRN; Protocol PRN Reason: Hypoglycemia Protocol Dextrose (Glutose 15) 0 gm PO ONCE PRN; Protocol PRN Reason: Hypoglycemia Protocol Enoxaparin Sodium (Lovenox) 40 mg SC DAILY [facility] Last Admin: 07/07/18 09:41 Dose: 40 mg Ergocalciferol (Drisdol 50,000 Intl Units Cap) 1 cap PO Q7D [facility] Stop: 07/20/18 10:01 Last Admin: 07/06/18 13:12 Dose: 1 cap Escitalopram Oxalate (Lexapro) 10 mg GT DAILY [facility] Last Admin: 07/07/18 09:40 Dose: 10 mg Gentamicin Sulfate (Gentamicin 0.1%) 0 gm TOP TID [facility] Last Admin: 07/07/18 14:11 Dose: 1 oin Glucagon (Glucagen Diagnostic Kit) 0 mg IM STAT PRN; Protocol PRN Reason: Hypoglycemia Protocol Guaifenesin (Robitussin) 100 mg PO Q4H PRN PRN Reason: Cough Hydromorphone HCl (Dilaudid) 1 mg IVP Q3 PRN PRN Reason: Pain, SEVERE (8-10) Last Admin: 07/07/18 15:48 Dose: 1 mg Meropenem 1 gm/ Sodium (Chloride) 100 mls @ 100 mls/hr IVPB Q8H [facility]; Protocol Last Admin: 07/07/18 16:30 Dose: 100 mls/hr Potassium Chloride (Potassium Chloride 20 Meq/100 Ml) 20 meq in 100 mls @ 50 mls/hr IVPB ONCE ONE Stop: 07/07/18 17:59 Insulin Human Regular (Novolin R) 0 unit SC ACHS [facility]; Protocol Last Admin: 07/07/18 12:05 Dose: Not Given Ipratropium [place] (Atrovent) 0.5 mg IH RQ6 [facility] Last Admin: 07/07/18 04:02 Dose: 0.5 mg Loperamide HCl (Imodium) 1 mg PO Q2H PRN PRN Reason: Diarrhea Last Admin: 07/07/18 10:16 Dose: 1 mg Lorazepam (Ativan) 1 mg IVP BID [facility] Last Admin: 07/07/18 09:31 Dose: 1 mg Metoprolol Tartrate (Lopressor) 12.5 mg PEG BID [facility] Last Admin: 07/07/18 09:40 Dose: 12.5 mg Nicotine (Nicoderm Cq) 1 patch TD DAILY [facility] Last Admin: 07/07/18 09:43 Dose: 1 patch Ondansetron HCl (Zofran Inj) 4 mg IVP Q6H PRN PRN Reason: Nausea/Vomiting Last Admin: 07/06/18 13:13 Dose: 4 mg Pantoprazole Sodium (Protonix Susp) 40 mg PO DAILY [facility] Last Admin: 07/07/18 09:41 Dose: 40 mg Saliva Substitute (Mouth Kote 236 Ml) 0 ml MM Q6 PRN PRN Reason: Dry mouth Vitamin A (Vitamin A & D Oint Ud Foilpak) 1 ea TOP Q8 PRN PRN Reason: dry lips Vitamin E (Vitamin E 400 Units Cap) 400 intlu GT DAILY [facility] Last Admin: 07/07/18 09:40 Dose: 400 intlu - Labs Labs: 07/06/18 07:37 07/06/18 07:37 PT 14.3 SECONDS (9.7-12.2) H 06/10/18 07:05 INR 1.3 06/10/18 07:05 APTT 33 SECONDS (21-34) 05/25/18 06:16
--- NOTE | 2018-07-07 20:37 | PN ---
DATE: 07/07/2018 SUBJECTIVE: The patient was awake and alert. She was with the NG tube, lying in bed. The nurse was going to change her tube feeding, and she is still getting tube feedings, and I have discontinued vancomycin. She was aware of it, and she is on meropenem at this time, and she has received meropenem since she had the Pseudomonas on the wound culture, but the wounds are improving. There are only two open areas remaining on the midline surgical wound, and she is waiting for reconstructive surgery. OBJECTIVE: VITAL SIGNS: T-max is 98.2, pulse 83, blood pressure 138/97, respirations are 18. HEENT: Head is atraumatic and normocephalic. NECK: Supple. LUNGS: Clear. HEART: S1, S2 regular. ABDOMEN: Soft. Has a jejunostomy tube. EXTREMITIES: Have no edema. White count is 6, hemoglobin is 9, hematocrit 27, platelet count is 267 she got for 10 days already. We will recheck the wound again, and if the wound is healing further, then probably she can come off the antibiotics early next week and need to be having her GI surgery by the surgeon. She came in with ischemic bowel, status post bypass surgery, and has Pseudomonas on the abdominal wound, and I am following that, and I have renewed the meropenem for now. Guero Rivera MD
[2018-07-08] MEDS: Ipratropium 0.02% Inhal Soln (0.5 mg/2.5 ml) UD IH SCH ×4 (01:13→19:23)
[2018-07-08] MEDS: Meropenem 1 GM in Sodium Chloride 0.9% 100 ML IVPB SCH ×3 (06:55→22:53)
[2018-07-08] MEDS: (Novolin R) Insulin Human Regular 100 units/ml vial SC SCH ×4 (07:19→22:56)
[2018-07-08 07:22] LABS: BASO # 0.1 K/uL (0.0-0.2); BASO % 1.1 % (0.0-2.0); EOS # 0.5 K/uL (0.0-0.7); EOS % 9.4 % (0.0-4.0); HEMOGLOBIN 9.7 g/dL (11.0-16.0); LYMPH # 2.1 K/uL (1.0-4.3); LYMPH % 36.5 % (20.0-40.0); MEAN CELL VOLUME 87.8 fL (81.0-99.0); MEAN CORPUSCULAR HEMOGLOBIN 28.2 pg (27.0-31.0); MEAN CORPUSCULAR HGB CONC 32.2 g/dL (33.0-37.0); MEAN PLATELET VOLUME 7.6 fL (7.2-11.7); MONO # 0.3 K/uL (0.0-0.8); MONO % 5.7 % (0.0-10.0); NEUT # 2.7 K/uL (1.8-7.0); NEUT % 47.3 % (50.0-75.0); NRBC % 0.2 % (0.0-2.0); RBC 3.45 Mil/uL (3.80-5.20); RED CELL DISTRIBUTION WIDTH 18.5 % (11.5-14.5); WHITE BLOOD COUNT 5.8 K/uL (4.8-10.8)
[2018-07-08 08:04] LABS: ALB/GLOB RATIO 0.9 (1.0-2.1); ALBUMIN 2.7 g/dL (3.5-5.0); ALT/SGPT 26 U/L (9-52); AST/SGOT 22 U/L (14-36); BLOOD UREA NITROGEN 4 mg/dL (7-17); CALCIUM 8.4 mg/dl (8.6-10.4); GFR NON-AFRICAN AMERICAN > 60
[2018-07-08] MEDS ORDERED: Magnesium Oxide 400 mg Tab UD PO ONE (10:07)
[2018-07-08] MEDS: Cholestyramine 4 gm/Pkt UD PO SCH ×2 (11:00→19:16)
[2018-07-08] MEDS: Pantoprazole 40 mg Susp UD PO SCH (11:00)
[2018-07-08] MEDS: Enoxaparin 40 mg Syringe SC SCH (11:00)
[2018-07-08] MEDS: GENTAMICIN 0.1% TOP SCH ×3 (11:08→19:45)
[2018-07-08] MEDS: Loperamide Hydrochloride 1 mg/5 ml Cup PO PRN (14:47)
[2018-07-08] MEDS: guaiFENesin 100 mg/5 ml Syrup UD PO PRN (14:47)
--- NOTE | 2018-07-08 19:43 | CP.PCM.PN ---
<Morris Connloly - Last Filed: 07/08/18 19:40> Subjective - Date & Time of Evaluation Date of Evaluation: 07/08/18 Time of Evaluation: 09:40 - Subjective Subjective: Medicine Progress Note for Hospitalist Service Pt seen and examined at bedside this am. Observed resting comfortably at bedside, in no acute distress. No acute events reported overnight. Pt states surgical team changed wound vac today, reports no issues with that or the gastrostomy tube at this time. Reported 400 cc from NGT as per RN today. Denies fever, chills, headache, chest pain, shortness of breath, n/v, abd pain, urinary complaints, or other symptoms. Reports diarrhea improving today, 2 episodes so far in am. C/o productive cough with phlegm today, currently on Robitussin prn. Objective - Vital Signs/Intake and Output Vital Signs (last 24 hours): Temp Pulse Resp BP Pulse Ox 98.6 F 92 H 20 120/85 95 07/08/18 15:15 07/08/18 15:15 07/08/18 15:15 07/08/18 15:15 07/08/18 15:15 Intake and Output: 07/08/18 07/09/18 18:59 06:59 Intake Total 269 Output Total 90 Balance 179 - Medications Medications: Current Medications Acetaminophen (Tylenol 650mg/20.3ml Solution Ud) 975 mg GT Q8H PRN PRN Reason: Pain, Mild (1-3) Calcium Acetate (Phoslo) 667 mg GT TIDCC [facility] Last Admin: 07/08/18 19:38 Dose: 667 mg Cholestyramine Resin (Questran) 4 gm PO BID [facility] Last Admin: 07/08/18 19:16 Dose: 4 gm Dextrose (Dextrose 50% Inj) 0 ml IV STAT PRN; Protocol PRN Reason: Hypoglycemia Protocol Dextrose (Glutose 15) 0 gm PO ONCE PRN; Protocol PRN Reason: Hypoglycemia Protocol Enoxaparin Sodium (Lovenox) 40 mg SC DAILY [facility] Last Admin: 07/08/18 11:00 Dose: 40 mg Ergocalciferol (Drisdol 50,000 Intl Units Cap) 1 cap PO Q7D [facility] Stop: 07/20/18 10:01 Last Admin: 07/06/18 13:12 Dose: 1 cap Escitalopram Oxalate (Lexapro) 10 mg GT DAILY [facility] Last Admin: 07/08/18 11:00 Dose: 10 mg Gentamicin Sulfate (Gentamicin 0.1%) 0 gm TOP TID [facility] Last Admin: 07/08/18 14:29 Dose: 1 oin Glucagon (Glucagen Diagnostic Kit) 0 mg IM STAT PRN; Protocol PRN Reason: Hypoglycemia Protocol Guaifenesin (Robitussin) 100 mg PO Q4H PRN PRN Reason: Cough Last Admin: 07/08/18 14:47 Dose: 100 mg Hydromorphone HCl (Dilaudid) 1 mg IVP Q3 PRN PRN Reason: Pain, SEVERE (8-10) Last Admin: 07/08/18 17:33 Dose: 1 mg Meropenem 1 gm/ Sodium (Chloride) 100 mls @ 100 mls/hr IVPB Q8H [facility]; Protocol Last Admin: 07/08/18 14:30 Dose: 100 mls/hr Insulin Human Regular (Novolin R) 0 unit SC ACHS [facility]; Protocol Last Admin: 07/08/18 11:31 Dose: Not Given Ipratropium [place] (Atrovent) 0.5 mg IH RQ6 [facility] Last Admin: 07/08/18 19:23 Dose: 0.5 mg Loperamide HCl (Imodium) 1 mg PO Q2H PRN PRN Reason: Diarrhea Last Admin: 07/08/18 14:47 Dose: 1 mg Lorazepam (Ativan) 1 mg IVP BID [facility] Last Admin: 07/08/18 19:38 Dose: 1 mg Metoprolol Tartrate (Lopressor) 12.5 mg PEG BID [facility] Last Admin: 07/08/18 19:16 Dose: 12.5 mg Nicotine (Nicoderm Cq) 1 patch TD DAILY [facility] Last Admin: 07/08/18 11:00 Dose: 1 patch Ondansetron HCl (Zofran Inj) 4 mg IVP Q6H PRN PRN Reason: Nausea/Vomiting Last Admin: 07/06/18 13:13 Dose: 4 mg Pantoprazole Sodium (Protonix Susp) 40 mg PO DAILY [facility] Last Admin: 07/08/18 11:00 Dose: 40 mg Saliva Substitute (Mouth Kote 236 Ml) 0 ml MM Q6 PRN PRN Reason: Dry mouth Vitamin A (Vitamin A & D Oint Ud Foilpak) 1 ea TOP Q8 PRN PRN Reason: dry lips Vitamin E (Vitamin E 400 Units Cap) 400 intlu GT DAILY [facility] Last Admin: 07/08/18 11:00 Dose: 400 intlu - Labs Labs: 07/08/18 07:02 07/08/18 07:02 PT 14.3 SECONDS (9.7-12.2) H 06/10/18 07:05 INR 1.3 06/10/18 07:05 APTT 33 SECONDS (21-34) 05/25/18 06:16 - Constitutional Appears: Non-toxic, No Acute Distress, Chronically Ill - Head Exam Head Exam: ATRAUMATIC, NORMOCEPHALIC - Eye Exam Eye Exam: EOMI, Normal appearance, PERRL - ENT Exam ENT Exam: Mucous Membranes Moist Additional comments: NGT in place, not dislodged - Neck Exam Neck Exam: Full ROM, Normal Inspection - Respiratory Exam Respiratory Exam: Clear to Ausculation Bilateral, NORMAL BREATHING PATTERN. absent: Rales, Rhonchi, Wheezes - Cardiovascular Exam Cardiovascular Exam: REGULAR RHYTHM, +S1, +S2. absent: Gallop, Rubs, Murmur - GI/Abdominal Exam GI & Abdominal Exam: Soft. absent: Tenderness Additional comments: Abdominal wound vac and gastrostomy tube in place, c/d/i - Extremities Exam Extremities Exam: Full ROM, Normal Capillary Refill, Normal Inspection. absent: Calf Tenderness, Joint Swelling, Pedal Edema - Neurological Exam Neurological Exam: Alert, Awake, CN II-XII Intact, Oriented x3 - Psychiatric Exam Psychiatric exam: Normal Affect, Normal Mood - Skin Skin Exam: Dry, Intact, Warm Assessment and Plan - Assessment and Plan (Free Text) Assessment: 38 y o female with PMHx HTN, HLD, DM2, asthma, s/p bowel resection (05/14/18, 05/16/18) 2/2 internal hernia s/p Binta-en-Y gastric bypass in 2013, admitted for medical optimization prior to reversal of bypass. Plan: Ischemic bowel disease 2/2 internal hernia producing bowel obstruction Current drains include: NGT (intermittent suction per surgery recs), gastrostomy tube (replaced 06/10/18) Latest wound cultures: -Abd incision, Peg incision site => Pseudomonas aeruginosa, sensitive to Meropenem -Per ID: Meropenem 1 g q 8 h, Vancomycin 1.5 g IVPB q 12 h (d/c on 07/05/18) -vanco trough 07/05 -- 15.1 Surgery (Dr. Harley) consulted - awaiting Dr Mccray's response on surgical intervention; f/u with surgical team regarding dispo Wound vac to continuous suction, to be replaced Q72hrs, obtain wound culture on next wound vac change Heme/onc (Dr. Cash) consulted for Fe status - repeat ferritin 185, no need for iron infusion at this time, anemia stable today, continue to monitor Other cultures: 06/22/18: abd incision => Pseudomonas aeruginosa sensitive to Meropenem 06/22/18: Peg site => Pseudomonas aeruginosa sensitive to Meropenem 05/14/18: Peritoneal fluid => Pseudomonas aeruginosa sensitive to Meropenem 05/23/18: Wound cx => Yudith albicans 05/15/18, 05/22/18: Blood cx => no growth 05/22/18: Urine cx => no growth 05/31/18: Incision site => Enterococcus faecalis, Acinetobacter baumannii 06/03/18: Stool cxs => No Salmonella, Shigella, or Campylobacter isolates 06/13/18: Repeat wound cx => Coag-neg Staph, Enterococcus raffinosus Antibiotics: Meropenem 1 g q 8 h IVPB Vancomycin 1.5 g IV q 12 h (started 06/16 at 12 pm), discontinued as per Dr Rivera on 07/05 Cipro 400 mg IV q 12h d/c'd (started 06/02/18, last day 06/16/18) Flagyl 500 mg IVPB q 8 h completed (active from 05/15/18-06/19/18) Gentamicin 0.1% TOP TID apply cream to peg tube site F/u vitamin levels and replace as needed: Vit D < 12.8, 35058 U q1 wk x 8 wks B12 707, wnl Folate 12.6, wnl Vit A 42, wnl Alpha vit E 5.6, wnl Vit A, B1, B6, E levels reordered on 06/15 Vit B1: inappropriately submitted, 06/01/18 valve acceptable Vit B6: 5.9, wnl Vit A, E collected Repeat Vitamin levels ordered today, f/u results, replete as needed C/w Tylenol 975 mg liquid q 8h, Dilaudid 1 mg q 3 h prn, Zofran 4 mg IV q 6 h prn Tachycardia, persistent, hx into 110s-130s - possible etiologies include pain, infection, anxiety 07/08 HR - 90s, continue to monitor and trend Tx for L G tube fluid infection Ativan prn, Dilaudid prn C/w metoprolol tartrate 12.5 mg bid Diarrhea, acute improving - suspect 2/2 PO intake by patient C. Diff (05/22, 05/24, 05/28) neg Stool ova and parasites (05/25/18) neg Stool leukocytes (05/25/18) neg Flagyl course finished Imodium 1 mg PO q 2h prn Anxiety Hospice Home Care Coordinator consulted - pt initially refused but then accepted Psych consulted (Dr. Reyez) - managing Ativan, c/w prn Lexapro 10 mg GT daily (started 05/31) Insomnia - Benadryl d/c'd, clinically not indicated Anemia, acute, stable, pt denies blood in stool Total 2 PRBC (on 05/16) and 4 FFP (on 05/15 and 05/16) 07/08 hb 9.7, hct: 30.3 Iron 16, TIBC 205, % sat 4.7, repeat ferritin 185 after Ferrlecit Monitor CBC q2d Spoke with Dr. Cash, no need for Ferrlecit/Procrit at this time Thrombocytosis - suspect reactive to pain, surgery; resolved 07/06 platelets: 309 Monitor CBC q2d DM2, controlled From prior note: admittedly non-compliant, has not taken Januvia for 1 y Accuchecks q6h Hypoglycemic protocol ISS regular HgbA1c 5.8 Hx gastric bypass surgery Hypercholesterolemia, untx LDL < 30, HDL < 23, Chol 59, TG 195 (06/03/18) Hx gastric bypass surgery Questran 4 g PO bid Hx HTN, controlled Since gastric bypass has not taken meds Metoprolol 12.5 mg bid Hx Asthma - Chronic Continue to monitor Atrovent prn Pt was c/o productive cough, Robitussin prn, defer steroids at this time due to concern for wound healing s/p surgical procedures Nicotine use disorder - Chronic From prior note: 1 ppd x 20 y, 1/2 ppd x 3 y C/w Nicoderm patch Electrolyte imbalance - Hypokalemia, Hypomagnesemia F/u am labs, replete as needed Mg 1.6 today, K 4.2 PPX, Diet, Dispo Hydrocortisone 1% cream top tid for R upper inner arm macular rash - improved Vitamin A+D top q 8h prn for dry lips Saliva substitute q 6 h prn for dry mouth IVF not indicated at this time VTE ppx: Lovenox 40 subQ d, SCDs, encourage ambulation GI ppx: Protonix 40 mg IV bid, Florastor bid Code status: Full code Continue PT services, follow up recs Dispo: Continue to optimize patient for reversal surgery. Dr. Harley to coordinate with Dr. Mccray plan for intervention. Pt to remain inpatient until reversal procedure performed by surgical team. Pt seen, examined with, and plan discussed with Dr. Turk, attending. Morris Connolly DO PGY-1, Pump Room Operator Pager #[phone] <Doretha Turk V - Last Filed: 07/08/18 23:47> Objective - Vital Signs/Intake and Output Vital Signs (last 24 hours): Temp Pulse Resp BP Pulse Ox 98.6 F 92 H 20 120/85 95 07/08/18 15:15 07/08/18 15:15 07/08/18 15:15 07/08/18 15:15 07/08/18 15:15 Intake and Output: 07/08/18 07/09/18 18:59 06:59 Intake Total 269 Output Total 90 Balance 179 - Medications Medications: Current Medications Acetaminophen (Tylenol 650mg/20.3ml Solution Ud) 975 mg GT Q8H PRN PRN Reason: Pain, Mild (1-3) Calcium Acetate (Phoslo) 667 mg GT TIDCC [facility] Last Admin: 07/08/18 19:38 Dose: 667 mg Cholestyramine Resin (Questran) 4 gm PO BID [facility] Last Admin: 07/08/18 19:16 Dose: 4 gm Dextrose (Dextrose 50% Inj) 0 ml IV STAT PRN; Protocol PRN Reason: Hypoglycemia Protocol Dextrose (Glutose 15) 0 gm PO ONCE PRN; Protocol PRN Reason: Hypoglycemia Protocol Enoxaparin Sodium (Lovenox) 40 mg SC DAILY [facility] Last Admin: 07/08/18 11:00 Dose: 40 mg Ergocalciferol (Drisdol 50,000 Intl Units Cap) 1 cap PO Q7D [facility] Stop: 07/20/18 10:01 Last Admin: 07/06/18 13:12 Dose: 1 cap Escitalopram Oxalate (Lexapro) 10 mg GT DAILY [facility] Last Admin: 07/08/18 11:00 Dose: 10 mg Gentamicin Sulfate (Gentamicin 0.1%) 0 gm TOP TID [facility] Last Admin: 07/08/18 19:45 Dose: 1 oin Glucagon (Glucagen Diagnostic Kit) 0 mg IM STAT PRN; Protocol PRN Reason: Hypoglycemia Protocol Guaifenesin (Robitussin) 100 mg PO Q4H PRN PRN Reason: Cough Last Admin: 07/08/18 14:47 Dose: 100 mg Hydromorphone HCl (Dilaudid) 1 mg IVP Q3 PRN PRN Reason: Pain, SEVERE (8-10) Last Admin: 07/08/18 20:28 Dose: 1 mg Meropenem 1 gm/ Sodium (Chloride) 100 mls @ 100 mls/hr IVPB Q8H [facility]; Protocol Last Admin: 07/08/18 22:53 Dose: 100 mls/hr Insulin Human Regular (Novolin R) 0 unit SC ACHS [facility]; Protocol Last Admin: 07/08/18 22:56 Dose: Not Given Ipratropium [place] (Atrovent) 0.5 mg IH RQ6 [facility] Last Admin: 07/08/18 19:23 Dose: 0.5 mg Loperamide HCl (Imodium) 1 mg PO Q2H PRN PRN Reason: Diarrhea Last Admin: 07/08/18 14:47 Dose: 1 mg Lorazepam (Ativan) 1 mg IVP BID [facility] Last Admin: 07/08/18 19:38 Dose: 1 mg Metoprolol Tartrate (Lopressor) 12.5 mg PEG BID [facility] Last Admin: 07/08/18 19:16 Dose: 12.5 mg Nicotine (Nicoderm Cq) 1 patch TD DAILY [facility] Last Admin: 07/08/18 11:00 Dose: 1 patch Ondansetron HCl (Zofran Inj) 4 mg IVP Q6H PRN PRN Reason: Nausea/Vomiting Last Admin: 07/06/18 13:13 Dose: 4 mg Pantoprazole Sodium (Protonix Susp) 40 mg PO DAILY [facility] Last Admin: 07/08/18 11:00 Dose: 40 mg Saliva Substitute (Mouth Kote 236 Ml) 0 ml MM Q6 PRN PRN Reason: Dry mouth Vitamin A (Vitamin A & D Oint Ud Foilpak) 1 ea TOP Q8 PRN PRN Reason: dry lips Vitamin E (Vitamin E 400 Units Cap) 400 intlu GT DAILY [facility] Last Admin: 07/08/18 11:00 Dose: 400 intlu - Labs Labs: 07/08/18 07:02 07/08/18 07:02 PT 14.3 SECONDS (9.7-12.2) H 06/10/18 07:05 INR 1.3 06/10/18 07:05 APTT 33 SECONDS (21-34) 05/25/18 06:16 Assessment and Plan (1) Ischemic bowel disease Status: Acute (2) Obesity (BMI 30-39.9) Status: Acute (3) Small bowel obstruction Status: Acute (4) Prophylactic measure Status: Acute Attending/Attestation - Attestation I have personally seen and examined this patient.: Yes I have fully participated in the care of the patient.: Yes I have reviewed all pertinent clinical information, including history, physical exam and plan: Yes Notes (Text): Patient seen, examined, and case discussed with day-time resident. Patient seen this afternoon. Discussed with RN at bedside, patient has minimal wound vac output. NGT tube output improving. Patient is currently on Meropenem. Patient's vancomycin was discontinued by ID earlier in the week. Wound vac was changed by surgery earlier today. No noted discharge from either the wound vac nor the IR tube during my exam this afternoon. Patient has had NGT tube since beginning of admission; no signs of nasal necrosis. Patient's hemoglobin improved to 9.7. Patient will be 8 weeks from surgery on July 11. I discussed case with Dr. Harley, he will reach out to Dr. Mccray the following week to plan for surgery. He has recommended to repeat vitamins and prealbumin. Patient is currently on Vitamin E, Vitamin D supplementation and has finished Ferriclet last week per heme-onco with improved ferritin; recommended for Procit PRN if hemoglobin falls below 9. Note: patient has not had her menstruation; patient has requested test though she reports she has not been sexually active during hospitalization. I have reordered vitamins including: A, B12, B1, B6, Vitamin D, Vitamin E, zinc, prealbumin, folate; discussed case with senior resident, Dr. Biswas and [facility] geon: Dr. Harley. Patient's surgery coordinated with Dr. Harley who will follow-up with Dr. Mccray, bariatric surgery since patient came in ischemic bowel, secondary to hernias cause necrosis involving gastric limb. Patient is awaiting follow-up surgery to essentially correct/connect bowel; however per surgery, her surgery is complex given patient's anatomy.
--- NOTE | 2018-07-08 22:35 | CP.PCM.PN ---
Subjective - Date & Time of Evaluation Date of Evaluation: 07/07/18 Time of Evaluation: 14:00 - Subjective Subjective: No complaints. Objective - Vital Signs/Intake and Output Vital Signs (last 24 hours): Temp Pulse Resp BP Pulse Ox 98.6 F 92 H 20 120/85 95 07/08/18 15:15 07/08/18 15:15 07/08/18 15:15 07/08/18 15:15 07/08/18 15:15 Intake and Output: 07/08/18 07/09/18 18:59 06:59 Intake Total 269 Output Total 90 Balance 179 - Medications Medications: Current Medications Acetaminophen (Tylenol 650mg/20.3ml Solution Ud) 975 mg GT Q8H PRN PRN Reason: Pain, Mild (1-3) Calcium Acetate (Phoslo) 667 mg GT TIDCC [facility] Last Admin: 07/08/18 19:38 Dose: 667 mg Cholestyramine Resin (Questran) 4 gm PO BID [facility] Last Admin: 07/08/18 19:16 Dose: 4 gm Dextrose (Dextrose 50% Inj) 0 ml IV STAT PRN; Protocol PRN Reason: Hypoglycemia Protocol Dextrose (Glutose 15) 0 gm PO ONCE PRN; Protocol PRN Reason: Hypoglycemia Protocol Enoxaparin Sodium (Lovenox) 40 mg SC DAILY [facility] Last Admin: 07/08/18 11:00 Dose: 40 mg Ergocalciferol (Drisdol 50,000 Intl Units Cap) 1 cap PO Q7D [facility] Stop: 07/20/18 10:01 Last Admin: 07/06/18 13:12 Dose: 1 cap Escitalopram Oxalate (Lexapro) 10 mg GT DAILY [facility] Last Admin: 07/08/18 11:00 Dose: 10 mg Gentamicin Sulfate (Gentamicin 0.1%) 0 gm TOP TID [facility] Last Admin: 07/08/18 19:45 Dose: 1 oin Glucagon (Glucagen Diagnostic Kit) 0 mg IM STAT PRN; Protocol PRN Reason: Hypoglycemia Protocol Guaifenesin (Robitussin) 100 mg PO Q4H PRN PRN Reason: Cough Last Admin: 07/08/18 14:47 Dose: 100 mg Hydromorphone HCl (Dilaudid) 1 mg IVP Q3 PRN PRN Reason: Pain, SEVERE (8-10) Last Admin: 07/08/18 20:28 Dose: 1 mg Meropenem 1 gm/ Sodium (Chloride) 100 mls @ 100 mls/hr IVPB Q8H [facility]; Protocol Last Admin: 07/08/18 14:30 Dose: 100 mls/hr Insulin Human Regular (Novolin R) 0 unit SC ACHS [facility]; Protocol Last Admin: 07/08/18 17:14 Dose: Not Given Ipratropium [place] (Atrovent) 0.5 mg IH RQ6 [facility] Last Admin: 07/08/18 19:23 Dose: 0.5 mg Loperamide HCl (Imodium) 1 mg PO Q2H PRN PRN Reason: Diarrhea Last Admin: 07/08/18 14:47 Dose: 1 mg Lorazepam (Ativan) 1 mg IVP BID [facility] Last Admin: 07/08/18 19:38 Dose: 1 mg Metoprolol Tartrate (Lopressor) 12.5 mg PEG BID [facility] Last Admin: 07/08/18 19:16 Dose: 12.5 mg Nicotine (Nicoderm Cq) 1 patch TD DAILY [facility] Last Admin: 07/08/18 11:00 Dose: 1 patch Ondansetron HCl (Zofran Inj) 4 mg IVP Q6H PRN PRN Reason: Nausea/Vomiting Last Admin: 07/06/18 13:13 Dose: 4 mg Pantoprazole Sodium (Protonix Susp) 40 mg PO DAILY [facility] Last Admin: 07/08/18 11:00 Dose: 40 mg Saliva Substitute (Mouth Kote 236 Ml) 0 ml MM Q6 PRN PRN Reason: Dry mouth Vitamin A (Vitamin A & D Oint Ud Foilpak) 1 ea TOP Q8 PRN PRN Reason: dry lips Vitamin E (Vitamin E 400 Units Cap) 400 intlu GT DAILY [facility] Last Admin: 07/08/18 11:00 Dose: 400 intlu - Labs Labs: 07/08/18 07:02 07/08/18 07:02 PT 14.3 SECONDS (9.7-12.2) H 06/10/18 07:05 INR 1.3 06/10/18 07:05 APTT 33 SECONDS (21-34) 05/25/18 06:16 - Head Exam Head Exam: ATRAUMATIC - Eye Exam Eye Exam: Normal appearance - ENT Exam ENT Exam: Mucous Membranes Dry - Respiratory Exam Respiratory Exam: NORMAL BREATHING PATTERN - Cardiovascular Exam Cardiovascular Exam: +S1, +S2 - GI/Abdominal Exam GI & Abdominal Exam: Normal Bowel Sounds Assessment and Plan (1) Anemia Assessment & Plan: iron deficiency anemia resolved s/p IV iron anemia of chronic disease; will consider Procrit supplementation in an attempt to avoid further transfusions FOBT positive transfuse PRN Status: Acute
--- NOTE | 2018-07-08 22:36 | CP.PCM.PN ---
Subjective - Date & Time of Evaluation Date of Evaluation: 07/08/18 Time of Evaluation: 19:00 - Subjective Subjective: No complaints. Objective - Vital Signs/Intake and Output Vital Signs (last 24 hours): Temp Pulse Resp BP Pulse Ox 98.6 F 92 H 20 120/85 95 07/08/18 15:15 07/08/18 15:15 07/08/18 15:15 07/08/18 15:15 07/08/18 15:15 Intake and Output: 07/08/18 07/09/18 18:59 06:59 Intake Total 269 Output Total 90 Balance 179 - Medications Medications: Current Medications Acetaminophen (Tylenol 650mg/20.3ml Solution Ud) 975 mg GT Q8H PRN PRN Reason: Pain, Mild (1-3) Calcium Acetate (Phoslo) 667 mg GT TIDCC [facility] Last Admin: 07/08/18 19:38 Dose: 667 mg Cholestyramine Resin (Questran) 4 gm PO BID [facility] Last Admin: 07/08/18 19:16 Dose: 4 gm Dextrose (Dextrose 50% Inj) 0 ml IV STAT PRN; Protocol PRN Reason: Hypoglycemia Protocol Dextrose (Glutose 15) 0 gm PO ONCE PRN; Protocol PRN Reason: Hypoglycemia Protocol Enoxaparin Sodium (Lovenox) 40 mg SC DAILY [facility] Last Admin: 07/08/18 11:00 Dose: 40 mg Ergocalciferol (Drisdol 50,000 Intl Units Cap) 1 cap PO Q7D [facility] Stop: 07/20/18 10:01 Last Admin: 07/06/18 13:12 Dose: 1 cap Escitalopram Oxalate (Lexapro) 10 mg GT DAILY [facility] Last Admin: 07/08/18 11:00 Dose: 10 mg Gentamicin Sulfate (Gentamicin 0.1%) 0 gm TOP TID [facility] Last Admin: 07/08/18 19:45 Dose: 1 oin Glucagon (Glucagen Diagnostic Kit) 0 mg IM STAT PRN; Protocol PRN Reason: Hypoglycemia Protocol Guaifenesin (Robitussin) 100 mg PO Q4H PRN PRN Reason: Cough Last Admin: 07/08/18 14:47 Dose: 100 mg Hydromorphone HCl (Dilaudid) 1 mg IVP Q3 PRN PRN Reason: Pain, SEVERE (8-10) Last Admin: 07/08/18 20:28 Dose: 1 mg Meropenem 1 gm/ Sodium (Chloride) 100 mls @ 100 mls/hr IVPB Q8H [facility]; Protocol Last Admin: 07/08/18 14:30 Dose: 100 mls/hr Insulin Human Regular (Novolin R) 0 unit SC ACHS [facility]; Protocol Last Admin: 07/08/18 17:14 Dose: Not Given Ipratropium [place] (Atrovent) 0.5 mg IH RQ6 [facility] Last Admin: 07/08/18 19:23 Dose: 0.5 mg Loperamide HCl (Imodium) 1 mg PO Q2H PRN PRN Reason: Diarrhea Last Admin: 07/08/18 14:47 Dose: 1 mg Lorazepam (Ativan) 1 mg IVP BID [facility] Last Admin: 07/08/18 19:38 Dose: 1 mg Metoprolol Tartrate (Lopressor) 12.5 mg PEG BID [facility] Last Admin: 07/08/18 19:16 Dose: 12.5 mg Nicotine (Nicoderm Cq) 1 patch TD DAILY [facility] Last Admin: 07/08/18 11:00 Dose: 1 patch Ondansetron HCl (Zofran Inj) 4 mg IVP Q6H PRN PRN Reason: Nausea/Vomiting Last Admin: 07/06/18 13:13 Dose: 4 mg Pantoprazole Sodium (Protonix Susp) 40 mg PO DAILY [facility] Last Admin: 07/08/18 11:00 Dose: 40 mg Saliva Substitute (Mouth Kote 236 Ml) 0 ml MM Q6 PRN PRN Reason: Dry mouth Vitamin A (Vitamin A & D Oint Ud Foilpak) 1 ea TOP Q8 PRN PRN Reason: dry lips Vitamin E (Vitamin E 400 Units Cap) 400 intlu GT DAILY [facility] Last Admin: 07/08/18 11:00 Dose: 400 intlu - Labs Labs: 07/08/18 07:02 07/08/18 07:02 PT 14.3 SECONDS (9.7-12.2) H 06/10/18 07:05 INR 1.3 06/10/18 07:05 APTT 33 SECONDS (21-34) 05/25/18 06:16 - Head Exam Head Exam: ATRAUMATIC - Eye Exam Eye Exam: Normal appearance - ENT Exam ENT Exam: Mucous Membranes Dry - Respiratory Exam Respiratory Exam: NORMAL BREATHING PATTERN - Cardiovascular Exam Cardiovascular Exam: +S1, +S2 - GI/Abdominal Exam GI & Abdominal Exam: Normal Bowel Sounds Assessment and Plan (1) Anemia Assessment & Plan: iron deficiency anemia resolved s/p IV iron anemia of chronic disease; will consider Procrit supplementation in an attempt to avoid further transfusions if hgb < 9 FOBT positive transfuse PRN Status: Acute
[2018-07-09] MEDS: Ipratropium 0.02% Inhal Soln (0.5 mg/2.5 ml) UD IH SCH ×4 (02:01→19:31)
[2018-07-09] MEDS: Meropenem 1 GM in Sodium Chloride 0.9% 100 ML IVPB SCH ×3 (06:50→23:05)
[2018-07-09] MEDS: (Novolin R) Insulin Human Regular 100 units/ml vial SC SCH ×4 (08:21→23:06)
[2018-07-09] MEDS: guaiFENesin 100 mg/5 ml Syrup UD PO PRN ×2 (09:02→18:40)
[2018-07-09] MEDS: Pantoprazole 40 mg Susp UD PO SCH (09:02)
[2018-07-09] MEDS: Loperamide Hydrochloride 1 mg/5 ml Cup PO PRN ×2 (09:02→18:40)
[2018-07-09] MEDS: Cholestyramine 4 gm/Pkt UD PO SCH ×2 (09:02→18:40)
[2018-07-09] MEDS: Enoxaparin 40 mg Syringe SC SCH (09:03)
[2018-07-09] MEDS: GENTAMICIN 0.1% TOP SCH ×3 (09:04→19:55)
[2018-07-09] MEDS: Benzocaine/Menthol (Cepacol) Lozenge MT PRN ×2 (13:08→18:41)
--- NOTE | 2018-07-09 14:57 | RAD ---
Date of service: 07/09/2018 HISTORY: s/p NGT replacement COMPARISON: Comparison chest 06/01/2018 FINDINGS: No change right sided PICC line. In situ NGT, the tip of which lies in the mid mediastinal region slightly more proximal than was seen in the prior study with the tip was located in the lower mediastinum. This should be withdrawn or advanced. LUNGS: Minor left basilar atelectasis and or scarring PLEURA: No significant pleural effusion identified, no pneumothorax apparent. CARDIOVASCULAR: Heart appears mildly enlarged. OSSEOUS STRUCTURES: No significant abnormalities. VISUALIZED UPPER ABDOMEN: Normal. OTHER FINDINGS: None. IMPRESSION: No change right sided PICC line. In situ NGT, the tip of which lies in the mid mediastinal region slightly more proximal than was seen in the prior study with the tip was located in the lower mediastinum. This should be withdrawn or advanced. Minor left basilar atelectasis or scarring. Findings discussed with 6 T nurse RADHA at approximately 2:55 p.m. with written down and read back verification.
[2018-07-09] MEDS ORDERED: Lidocaine 2% Jelly (Uro-Jet) TOP ONE (18:52)
--- NOTE | 2018-07-09 18:54 | CP.PCM.PN ---
<Barbara Badillo - Last Filed: 07/09/18 19:00> Subjective - Date & Time of Evaluation Date of Evaluation: 07/09/18 Time of Evaluation: 11:30 - Subjective Subjective: General surgery progress note for Dr. Harley-Barbara Badillo, PGY-2 Pt S & E at bedside at 1130 Per nursing - pt with episode of emesis, little output via NGT, NGT in poor repair- cracking with holes in it. Pt resting comfortably in bed. No distress, no current complaints. Objective - Vital Signs/Intake and Output Vital Signs (last 24 hours): Temp Pulse Resp BP Pulse Ox 98.0 F 79 20 106/70 97 07/09/18 07:00 07/09/18 07:00 07/09/18 07:00 07/09/18 07:00 07/09/18 07:00 Intake and Output: 07/09/18 07/09/18 06:59 18:59 Intake Total 1050 313 Output Total 200 200 Balance 850 113 - Medications Medications: Current Medications Acetaminophen (Tylenol 650mg/20.3ml Solution Ud) 975 mg GT Q8H PRN PRN Reason: Pain, Mild (1-3) Benzocaine/Menthol (Cepacol Sore Throat) 1 sravan MT Q2H PRN PRN Reason: Sore Throat Last Admin: 07/09/18 13:08 Dose: 1 sravan Calcium Acetate (Phoslo) 667 mg GT TIDCC [facility] Last Admin: 07/09/18 12:52 Dose: 667 mg Cholestyramine Resin (Questran) 4 gm PO BID [facility] Last Admin: 07/09/18 09:02 Dose: 4 gm Dextrose (Dextrose 50% Inj) 0 ml IV STAT PRN; Protocol PRN Reason: Hypoglycemia Protocol Dextrose (Glutose 15) 0 gm PO ONCE PRN; Protocol PRN Reason: Hypoglycemia Protocol Enoxaparin Sodium (Lovenox) 40 mg SC DAILY [facility] Last Admin: 07/09/18 09:03 Dose: 40 mg Ergocalciferol (Drisdol 50,000 Intl Units Cap) 1 cap PO Q7D [facility] Stop: 07/20/18 10:01 Last Admin: 07/06/18 13:12 Dose: 1 cap Escitalopram Oxalate (Lexapro) 10 mg GT DAILY [facility] Last Admin: 07/09/18 09:02 Dose: 10 mg Gentamicin Sulfate (Gentamicin 0.1%) 0 gm TOP TID [facility] Last Admin: 07/09/18 09:04 Dose: 1 oin Glucagon (Glucagen Diagnostic Kit) 0 mg IM STAT PRN; Protocol PRN Reason: Hypoglycemia Protocol Guaifenesin (Robitussin) 100 mg PO Q4H PRN PRN Reason: Cough Last Admin: 07/09/18 09:02 Dose: 100 mg Hydromorphone HCl (Dilaudid) 1 mg IVP Q3 PRN PRN Reason: Pain, SEVERE (8-10) Last Admin: 07/09/18 18:25 Dose: 1 mg Meropenem 1 gm/ Sodium (Chloride) 100 mls @ 100 mls/hr IVPB Q8H [facility]; Protocol Last Admin: 07/09/18 15:21 Dose: 100 mls/hr Influenza Virus Vaccine (Fluzone Quad [id number]) 60 mcg IM .ONCE ONE Stop: 07/11/18 18:01 Insulin Human Regular (Novolin R) 0 unit SC ACHS [facility]; Protocol Last Admin: 07/09/18 12:52 Dose: Not Given Ipratropium [place] (Atrovent) 0.5 mg IH RQ6 [facility] Last Admin: 07/09/18 08:00 Dose: 0.5 mg Lidocaine HCl (Xylocaine 2% (Uro-Jet)) 1 ea TOP ONCE ONE Stop: 07/09/18 18:53 Loperamide HCl (Imodium) 1 mg PO Q2H PRN PRN Reason: Diarrhea Last Admin: 07/09/18 09:02 Dose: 1 mg Lorazepam (Ativan) 1 mg IVP BID [facility] Last Admin: 07/09/18 18:26 Dose: 1 mg Metoprolol Tartrate (Lopressor) 12.5 mg PEG BID [facility] Last Admin: 07/09/18 09:02 Dose: 12.5 mg Nicotine (Nicoderm Cq) 1 patch TD DAILY [facility] Last Admin: 07/09/18 09:02 Dose: 1 patch Ondansetron HCl (Zofran Inj) 4 mg IVP Q6H PRN PRN Reason: Nausea/Vomiting Last Admin: 07/09/18 09:04 Dose: 4 mg Pantoprazole Sodium (Protonix Susp) 40 mg PO DAILY [facility] Last Admin: 07/09/18 09:02 Dose: 40 mg Pneumococcal Polyvalent Vaccine (Pneumovax 23 Vaccine) 0.5 ml IM .ONCE ONE Stop: 07/10/18 10:01 Saliva Substitute (Mouth Kote 236 Ml) 0 ml MM Q6 PRN PRN Reason: Dry mouth Vitamin A (Vitamin A & D Oint Ud Foilpak) 1 ea TOP Q8 PRN PRN Reason: dry lips Vitamin E (Vitamin E 400 Units Cap) 400 intlu GT DAILY [facility] Last Admin: 07/09/18 09:02 Dose: 400 intlu - Labs Labs: 07/08/18 07:02 07/08/18 07:02 PT 14.3 SECONDS (9.7-12.2) H 06/10/18 07:05 INR 1.3 06/10/18 07:05 APTT 33 SECONDS (21-34) 05/25/18 06:16 - Constitutional Appears: Non-toxic, No Acute Distress - Head Exam Head Exam: ATRAUMATIC, NORMAL INSPECTION, NORMOCEPHALIC Additional comments: NGT in place - Eye Exam Eye Exam: EOMI, Normal appearance - ENT Exam ENT Exam: Mucous Membranes Moist, Normal Exam - Neck Exam Neck Exam: Full ROM, Normal Inspection - Respiratory Exam Respiratory Exam: NORMAL BREATHING PATTERN - Cardiovascular Exam Cardiovascular Exam: REGULAR RHYTHM, +S1, +S2 - GI/Abdominal Exam GI & Abdominal Exam: Soft. absent: Distended, Firm, Guarding, Tenderness Additional comments: PEG tube in place Wound vac in place- no airleaks - Extremities Exam Extremities Exam: Normal Inspection - Neurological Exam Neurological Exam: Alert, Awake, CN II-XII Intact, Oriented x3 - Psychiatric Exam Psychiatric exam: Normal Affect, Normal Mood - Skin Skin Exam: Dry, Normal Color, Warm Assessment and Plan - Assessment and Plan (Free Text) Assessment: 38F s/p Binta-en-Y gastric bypass (2013) w/bowel ischemic 2/2 internal hernia POD#56 s/p ex lap, reduction of internal hernia, DANNI, drainage of abdominal collections, temporary abdominal closure & EGD POD#52 s/p re-exploration, resection of ileum & Binta limb including previous gastrojejunostomy, reversal of bypass, primary anastomosis of ileum-ileum, ileum-ileum, and ileum-jejunum. Gastrostomy tube in bypassed stomach, EGD Wound vac in place over midline incision Plan: Wound vac changed yesterday Wound vac changed Q72H Monitor wound vac output NGT changed today- cepacol, urojet CXR indicates it is in similar position to previous NGT to low intermittent wall suction Monitor NGT output Cont TPN OOBTC Ambulate w/assistance Encourage IS use Awaiting Dr. Mccray's response to coordinate take back surgery Will DW Dr. Cricket Badillo, PGY-2 <Gómez Harley - Last Filed: 07/10/18 19:03> Objective - Vital Signs/Intake and Output Vital Signs (last 24 hours): Temp Pulse Resp BP Pulse Ox 98.4 F 93 H 20 113/77 96 07/10/18 15:45 07/10/18 15:45 07/10/18 15:45 07/10/18 15:45 07/10/18 15:45 Intake and Output: 07/10/18 07/11/18 18:59 06:59 Intake Total 600 Output Total 100 Balance 500 - Medications Medications: Current Medications Acetaminophen (Tylenol 650mg/20.3ml Solution Ud) 975 mg GT Q8H PRN PRN Reason: Pain, Mild (1-3) Last Admin: 07/10/18 18:30 Dose: 975 mg Benzocaine/Menthol (Cepacol Sore Throat) 1 sravan MT Q2H PRN PRN Reason: Sore Throat Last Admin: 07/10/18 18:30 Dose: 1 sravan Calcium Acetate (Phoslo) 667 mg GT TIDCC [facility] Last Admin: 07/10/18 18:25 Dose: 667 mg Cholestyramine Resin (Questran) 4 gm PO BID [facility] Last Admin: 07/10/18 18:25 Dose: 4 gm Dextrose (Dextrose 50% Inj) 0 ml IV STAT PRN; Protocol PRN Reason: Hypoglycemia Protocol Last Admin: 07/10/18 18:22 Dose: 25 ml Dextrose (Glutose 15) 0 gm PO ONCE PRN; Protocol PRN Reason: Hypoglycemia Protocol Enoxaparin Sodium (Lovenox) 40 mg SC DAILY [facility] Last Admin: 07/10/18 11:03 Dose: 40 mg Ergocalciferol (Drisdol 50,000 Intl Units Cap) 1 cap PO Q7D [facility] Stop: 07/20/18 10:01 Last Admin: 07/06/18 13:12 Dose: 1 cap Escitalopram Oxalate (Lexapro) 10 mg GT DAILY [facility] Last Admin: 07/10/18 11:03 Dose: 10 mg Gentamicin Sulfate (Gentamicin 0.1%) 0 gm TOP TID [facility] Last Admin: 07/10/18 14:03 Dose: 1 oin Glucagon (Glucagen Diagnostic Kit) 0 mg IM STAT PRN; Protocol PRN Reason: Hypoglycemia Protocol Guaifenesin (Robitussin) 100 mg PO Q4H PRN PRN Reason: Cough Last Admin: 07/10/18 18:31 Dose: 100 mg Hydromorphone HCl (Dilaudid) 1 mg IVP Q3 PRN PRN Reason: Pain, SEVERE (8-10) Last Admin: 07/10/18 17:05 Dose: 1 mg Meropenem 1 gm/ Sodium (Chloride) 100 mls @ 100 mls/hr IVPB Q8H [facility]; Protocol Last Admin: 07/10/18 15:24 Dose: 100 mls/hr Influenza Virus Vaccine (Fluzone Quad [id number]) 60 mcg IM .ONCE ONE Stop: 07/11/18 18:01 Insulin Human Regular (Novolin R) 0 unit SC ACHS [facility]; Protocol Last Admin: 07/10/18 18:25 Dose: Not Given Ipratropium [place] (Atrovent) 0.5 mg IH RQ6 [facility] Last Admin: 07/10/18 13:34 Dose: 0.5 mg Loperamide HCl (Imodium) 1 mg PO Q2H PRN PRN Reason: Diarrhea Last Admin: 07/10/18 18:25 Dose: 1 mg Lorazepam (Ativan) 1 mg IVP BID [facility] Last Admin: 07/10/18 17:05 Dose: 1 mg Metoprolol Tartrate (Lopressor) 12.5 mg PEG BID [facility] Last Admin: 07/10/18 18:25 Dose: 12.5 mg Nicotine (Nicoderm Cq) 1 patch TD DAILY [facility] Last Admin: 07/10/18 11:03 Dose: 1 patch Ondansetron HCl (Zofran Inj) 4 mg IVP Q6H PRN PRN Reason: Nausea/Vomiting Last Admin: 07/10/18 11:03 Dose: 4 mg Pantoprazole Sodium (Protonix Susp) 40 mg PO DAILY [facility] Last Admin: 07/10/18 11:03 Dose: 40 mg Saliva Substitute (Mouth Kote 236 Ml) 0 ml MM Q6 PRN PRN Reason: Dry mouth Vitamin A (Vitamin A & D Oint Ud Foilpak) 1 ea TOP Q8 PRN PRN Reason: dry lips Vitamin E (Vitamin E 400 Units Cap) 400 intlu GT DAILY [facility] Last Admin: 07/10/18 11:03 Dose: 400 intlu - Labs Labs: 07/10/18 07:23 07/10/18 07:23 PT 14.3 SECONDS (9.7-12.2) H 06/10/18 07:05 INR 1.3 06/10/18 07:05 APTT 33 SECONDS (21-34) 05/25/18 06:16 Attending/Attestation - Attestation I have fully participated in the care of the patient.: Yes I have reviewed all pertinent clinical information, including history, physical exam and plan: Yes Notes (Text): Pt is improving clinically C/w current mx OOB to walk Plan d.w pt in detail
--- NOTE | 2018-07-09 19:39 | CP.PCM.PN ---
<Morris Connolly - Last Filed: 07/09/18 19:39> Subjective - Date & Time of Evaluation Date of Evaluation: 07/09/18 Time of Evaluation: 09:15 - Subjective Subjective: Medicine Progress Note for Hospitalist Service Pt seen and examined at bedside this am. Reports NGT not suctioning fluids today. Otherwise denies any acute complaints. No acute events reported overnight. 100 cc from overnight into NGT, minimal drainage reported from abdominal wound vac. Denies fever, chills, chest pain, sob, n/v/d/c, abd pain, urinary complaints or other symptoms. Objective - Vital Signs/Intake and Output Vital Signs (last 24 hours): Temp Pulse Resp BP Pulse Ox 98.6 F 94 H 20 99/64 L 96 07/09/18 15:00 07/09/18 15:00 07/09/18 15:00 07/09/18 15:00 07/09/18 15:00 Intake and Output: 07/09/18 07/10/18 18:59 06:59 Intake Total 313 Output Total 200 Balance 113 - Medications Medications: Current Medications Acetaminophen (Tylenol 650mg/20.3ml Solution Ud) 975 mg GT Q8H PRN PRN Reason: Pain, Mild (1-3) Benzocaine/Menthol (Cepacol Sore Throat) 1 sravan MT Q2H PRN PRN Reason: Sore Throat Last Admin: 07/09/18 13:08 Dose: 1 sravan Calcium Acetate (Phoslo) 667 mg GT TIDCC [facility] [place] Last Admin: 07/09/18 12:52 Dose: 667 mg Cholestyramine Resin (Questran) 4 gm PO BID [facility] [place] Last Admin: 07/09/18 09:02 Dose: 4 gm Dextrose (Dextrose 50% Inj) 0 ml IV STAT PRN; Protocol PRN Reason: Hypoglycemia Protocol Dextrose (Glutose 15) 0 gm PO ONCE PRN; Protocol PRN Reason: Hypoglycemia Protocol Enoxaparin Sodium (Lovenox) 40 mg SC DAILY [facility] [place] Last Admin: 07/09/18 09:03 Dose: 40 mg Ergocalciferol (Drisdol 50,000 Intl Units Cap) 1 cap PO Q7D [facility] [place] Stop: 07/20/18 10:01 Last Admin: 07/06/18 13:12 Dose: 1 cap Escitalopram Oxalate (Lexapro) 10 mg GT DAILY [facility] [place] Last Admin: 07/09/18 09:02 Dose: 10 mg Gentamicin Sulfate (Gentamicin 0.1%) 0 gm TOP TID [facility] [place] Last Admin: 07/09/18 09:04 Dose: 1 oin Glucagon (Glucagen Diagnostic Kit) 0 mg IM STAT PRN; Protocol PRN Reason: Hypoglycemia Protocol Guaifenesin (Robitussin) 100 mg PO Q4H PRN PRN Reason: Cough Last Admin: 07/09/18 09:02 Dose: 100 mg Hydromorphone HCl (Dilaudid) 1 mg IVP Q3 PRN PRN Reason: Pain, SEVERE (8-10) Last Admin: 07/09/18 18:25 Dose: 1 mg Meropenem 1 gm/ Sodium (Chloride) 100 mls @ 100 mls/hr IVPB Q8H [facility] [place]; Protocol Last Admin: 07/09/18 15:21 Dose: 100 mls/hr Influenza Virus Vaccine (Fluzone Quad [id number]) 60 mcg IM .ONCE ONE Stop: 07/11/18 18:01 Insulin Human Regular (Novolin R) 0 unit SC ACHS [facility] [place]; Protocol Last Admin: 07/09/18 12:52 Dose: Not Given Ipratropium [place] (Atrovent) 0.5 mg IH RQ6 [facility] [place] Last Admin: 07/09/18 19:31 Dose: 0.5 mg Loperamide HCl (Imodium) 1 mg PO Q2H PRN PRN Reason: Diarrhea Last Admin: 07/09/18 09:02 Dose: 1 mg Lorazepam (Ativan) 1 mg IVP BID [facility] [place] Last Admin: 07/09/18 18:26 Dose: 1 mg Metoprolol Tartrate (Lopressor) 12.5 mg PEG BID [facility] [place] Last Admin: 07/09/18 09:02 Dose: 12.5 mg Nicotine (Nicoderm Cq) 1 patch TD DAILY [facility] [place] Last Admin: 07/09/18 09:02 Dose: 1 patch Ondansetron HCl (Zofran Inj) 4 mg IVP Q6H PRN PRN Reason: Nausea/Vomiting Last Admin: 07/09/18 09:04 Dose: 4 mg Pantoprazole Sodium (Protonix Susp) 40 mg PO DAILY [facility] [place] Last Admin: 07/09/18 09:02 Dose: 40 mg Pneumococcal Polyvalent Vaccine (Pneumovax 23 Vaccine) 0.5 ml IM .ONCE ONE Stop: 07/10/18 10:01 Saliva Substitute (Mouth Kote 236 Ml) 0 ml MM Q6 PRN PRN Reason: Dry mouth Vitamin A (Vitamin A & D Oint Ud Foilpak) 1 ea TOP Q8 PRN PRN Reason: dry lips Vitamin E (Vitamin E 400 Units Cap) 400 intlu GT DAILY [facility] Last Admin: 07/09/18 09:02 Dose: 400 intlu - Labs Labs: 07/08/18 07:02 07/08/18 07:02 PT 14.3 SECONDS (9.7-12.2) H 06/10/18 07:05 INR 1.3 06/10/18 07:05 APTT 33 SECONDS (21-34) 05/25/18 06:16 - Constitutional Appears: Non-toxic, No Acute Distress - Head Exam Head Exam: ATRAUMATIC, NORMOCEPHALIC - Eye Exam Eye Exam: EOMI, Normal appearance, PERRL - ENT Exam ENT Exam: Mucous Membranes Moist - Respiratory Exam Respiratory Exam: Clear to Ausculation Bilateral, NORMAL BREATHING PATTERN - Cardiovascular Exam Cardiovascular Exam: REGULAR RHYTHM, +S1, +S2 - GI/Abdominal Exam GI & Abdominal Exam: Soft. absent: Distended, Firm, Guarding, Rigid, Tenderness, Rebound Additional comments: Abdominal wound vac and gastrostomy tube in place, c/d/i - Extremities Exam Extremities Exam: Full ROM, Normal Capillary Refill, Normal Inspection. absent: Calf Tenderness, Pedal Edema - Neurological Exam Neurological Exam: Alert, CN II-XII Intact, Oriented x3 - Skin Skin Exam: Dry, Intact, Warm Assessment and Plan - Assessment and Plan (Free Text) Assessment: 38 y o female with PMHx HTN, HLD, DM2, asthma, s/p bowel resection (05/14/18, 05/16/18) 2/2 internal hernia s/p Binta-en-Y gastric bypass in 2013, admitted for medical optimization prior to reversal of bypass. Plan: Ischemic bowel disease 2/2 internal hernia producing bowel obstruction Current drains include: NGT (intermittent suction per surgery recs) replaced today by surgery team, gastrostomy tube (replaced 06/10/18) Latest wound cultures: -Abd incision, Peg incision site => Pseudomonas aeruginosa, sensitive to Meropenem -Per ID: Meropenem 1 g q 8 h, Vancomycin 1.5 g IVPB q 12 h (d/c on 07/05/18) -vanco trough 07/05 -- 15.1 Surgery (Dr. Harley) consulted - awaiting Dr Mccray's response on surgical intervention; f/u with surgical team regarding dispo Wound vac to continuous suction, to be replaced Q72hrs, obtain wound culture on next wound vac change Heme/onc (Dr. Cash) consulted for Fe status - repeat ferritin 185, no need for iron infusion at this time, anemia stable today, continue to monitor Other cultures: 06/22/18: abd incision => Pseudomonas aeruginosa sensitive to Meropenem 06/22/18: Peg site => Pseudomonas aeruginosa sensitive to Meropenem 05/14/18: Peritoneal fluid => Pseudomonas aeruginosa sensitive to Meropenem 05/23/18: Wound cx => Yudith albicans 05/15/18, 05/22/18: Blood cx => no growth 05/22/18: Urine cx => no growth 05/31/18: Incision site => Enterococcus faecalis, Acinetobacter baumannii 06/03/18: Stool cxs => No Salmonella, Shigella, or Campylobacter isolates 06/13/18: Repeat wound cx => Coag-neg Staph, Enterococcus raffinosus Antibiotics: Meropenem 1 g q 8 h IVPB, will f/u with ID regarding duration of tx Vancomycin 1.5 g IV q 12 h (started 06/16 at 12 pm), discontinued as per Dr Rivera on 07/05 Cipro 400 mg IV q 12h d/c'd (started 06/02/18, last day 06/16/18) Flagyl 500 mg IVPB q 8 h completed (active from 05/15/18-06/19/18) Gentamicin 0.1% TOP TID apply cream to peg tube site F/u vitamin levels and replace as needed: Vit D < 12.8, 56097 U q1 wk x 8 wks B12 707, wnl Folate 12.6, wnl Vit A 42, wnl Alpha vit E 5.6, wnl Vit A, B1, B6, E levels reordered on 06/15 Vit B1: inappropriately submitted, 06/01/18 valve acceptable Vit B6: 5.9, wnl Vit A, E collected Repeat Vitamin levels ordered on 07/08, f/u results 07/08: Pre-albumin 11.6, B12 508, 25-OH vit D < 12.8 Will discuss with lead java programmer C/w Tylenol 975 mg liquid q 8h, Dilaudid 1 mg q 3 h prn, Zofran 4 mg IV q 6 h prn Tachycardia, persistent, hx into 110s-130s - possible etiologies include pain, infection, anxiety 07/09 HR - 80s-90s, continue to monitor and trend Tx for L G tube fluid infection Ativan prn, Dilaudid prn C/w metoprolol tartrate 12.5 mg bid Diarrhea, acute improving - suspect 2/ PO intake by patient C. Diff (05/22, 05/24, 05/28) neg Stool ova and parasites (05/25/18) neg Stool leukocytes (05/25/18) neg Flagyl course finished Imodium 1 mg PO q 2h prn Anxiety Carpentry Supervisor consulted - pt initially refused but then accepted Psych consulted (Dr. Reyez) - managing Ativan, c/w prn Lexapro 10 mg GT daily (started 05/31) Insomnia - Benadryl d/c'd, clinically not indicated Anemia, acute, stable, pt denies blood in stool Total 2 PRBC (on 05/16) and 4 FFP (on 05/15 and 05/16) 07/08 hb 9.7, hct: 30.3 Iron 16, TIBC 205, % sat 4.7, repeat ferritin 185 after Ferrlecit Monitor CBC q2d Per Dr. Cash, consider Procrit supplementation in attempt to avoid further transfusions if Hgb < 9 Thrombocytosis - suspect reactive to pain, surgery; resolved 07/08 platelets: 309 Monitor CBC q2d DM2, controlled From prior note: admittedly non-compliant, has not taken Januvia for 1 y Accuchecks q6h Hypoglycemic protocol ISS regular HgbA1c 5.8 Hx gastric bypass surgery Hypercholesterolemia, untx LDL < 30, HDL < 23, Chol 59, TG 195 (06/03/18) Hx gastric bypass surgery Questran 4 g PO bid Hx HTN, controlled Since gastric bypass has not taken meds Metoprolol 12.5 mg bid Hx Asthma - Chronic Continue to monitor Atrovent prn Not c/o productive cough today, Robitussin prn, defer steroids at this time due to concern for wound healing s/p surgical procedures Nicotine use disorder - Chronic From prior note: 1 ppd x 20 y, 1/2 ppd x 3 y C/w Nicoderm patch Electrolyte imbalance - Hypokalemia, Hypomagnesemia F/u am labs, replete as needed Mg 1.6 on 07/08, K 4.2 PPX, Diet, Dispo Hydrocortisone 1% cream top tid for R upper inner arm macular rash - improved Vitamin A+D top q 8h prn for dry lips Saliva substitute q 6 h prn for dry mouth IVF not indicated at this time VTE ppx: Lovenox 40 subQ d, SCDs, encourage ambulation GI ppx: Protonix 40 mg IV bid, Florastor bid Code status: Full code Continue PT services, follow up recs Dispo: Continue to optimize patient for reversal surgery. Dr. Harley to coordinate with Dr. Mccray plan for intervention. Pt to remain inpatient until reversal procedure performed by surgical team. Pt seen, examined with, and plan discussed with Dr. Turk, attending. Morris Connolly DO PGY-1, Fur Repairer Pager #[phone] <Doretha Turk V - Last Filed: 07/10/18 18:26> Objective - Vital Signs/Intake and Output Vital Signs (last 24 hours): Temp Pulse Resp BP Pulse Ox 98.4 F 93 H 20 113/77 96 07/10/18 15:45 07/10/18 15:45 07/10/18 15:45 07/10/18 15:45 07/10/18 15:45 Intake and Output: 07/10/18 07/10/18 06:59 18:59 Intake Total 268 600 Output Total 150 100 Balance 118 500 - Medications Medications: Current Medications Acetaminophen (Tylenol 650mg/20.3ml Solution Ud) 975 mg GT Q8H PRN PRN Reason: Pain, Mild (1-3) Benzocaine/Menthol (Cepacol Sore Throat) 1 sravan MT Q2H PRN PRN Reason: Sore Throat Last Admin: 07/10/18 11:03 Dose: 1 sravan Calcium Acetate (Phoslo) 667 mg GT TIDCC [facility] Last Admin: 07/10/18 11:03 Dose: 667 mg Cholestyramine Resin (Questran) 4 gm PO BID [facility] [place] Last Admin: 07/10/18 11:02 Dose: 4 gm Dextrose (Dextrose 50% Inj) 0 ml IV STAT PRN; Protocol PRN Reason: Hypoglycemia Protocol Dextrose (Glutose 15) 0 gm PO ONCE PRN; Protocol PRN Reason: Hypoglycemia Protocol Enoxaparin Sodium (Lovenox) 40 mg SC DAILY [facility] [place] Last Admin: 07/10/18 11:03 Dose: 40 mg Ergocalciferol (Drisdol 50,000 Intl Units Cap) 1 cap PO Q7D [facility] [place] Stop: 07/20/18 10:01 Last Admin: 07/06/18 13:12 Dose: 1 cap Escitalopram Oxalate (Lexapro) 10 mg GT DAILY [facility] [place] Last Admin: 07/10/18 11:03 Dose: 10 mg Gentamicin Sulfate (Gentamicin 0.1%) 0 gm TOP TID [facility] [place] Last Admin: 07/10/18 14:03 Dose: 1 oin Glucagon (Glucagen Diagnostic Kit) 0 mg IM STAT PRN; Protocol PRN Reason: Hypoglycemia Protocol Guaifenesin (Robitussin) 100 mg PO Q4H PRN PRN Reason: Cough Last Admin: 07/10/18 11:03 Dose: 100 mg Hydromorphone HCl (Dilaudid) 1 mg IVP Q3 PRN PRN Reason: Pain, SEVERE (8-10) Last Admin: 07/10/18 17:05 Dose: 1 mg Meropenem 1 gm/ Sodium (Chloride) 100 mls @ 100 mls/hr IVPB Q8H [facility] [place]; Protocol Last Admin: 07/10/18 15:24 Dose: 100 mls/hr Influenza Virus Vaccine (Fluzone Quad [id number]) 60 mcg IM .ONCE ONE Stop: 07/11/18 18:01 Insulin Human Regular (Novolin R) 0 unit SC ACHS [facility] [place]; Protocol Last Admin: 07/10/18 07:47 Dose: Not Given Ipratropium [place] (Atrovent) 0.5 mg IH RQ6 [facility] [place] Last Admin: 07/10/18 13:34 Dose: 0.5 mg Loperamide HCl (Imodium) 1 mg PO Q2H PRN PRN Reason: Diarrhea Last Admin: 07/10/18 11:02 Dose: 1 mg Lorazepam (Ativan) 1 mg IVP BID [facility] [place] Last Admin: 07/10/18 17:05 Dose: 1 mg Metoprolol Tartrate (Lopressor) 12.5 mg PEG BID [facility] [place] Last Admin: 07/10/18 11:03 Dose: 12.5 mg Nicotine (Nicoderm Cq) 1 patch TD DAILY [facility] [place] Last Admin: 07/10/18 11:03 Dose: 1 patch Ondansetron HCl (Zofran Inj) 4 mg IVP Q6H PRN PRN Reason: Nausea/Vomiting Last Admin: 07/10/18 11:03 Dose: 4 mg Pantoprazole Sodium (Protonix Susp) 40 mg PO DAILY [facility] [place] Last Admin: 07/10/18 11:03 Dose: 40 mg Saliva Substitute (Mouth Kote 236 Ml) 0 ml MM Q6 PRN PRN Reason: Dry mouth Vitamin A (Vitamin A & D Oint Ud Foilpak) 1 ea TOP Q8 PRN PRN Reason: dry lips Vitamin E (Vitamin E 400 Units Cap) 400 intlu GT DAILY [facility] [place] Last Admin: 07/10/18 11:03 Dose: 400 intlu - Labs Labs: 07/10/18 07:23 07/10/18 07:23 PT 14.3 SECONDS (9.7-12.2) H 06/10/18 07:05 INR 1.3 06/10/18 07:05 APTT 33 SECONDS (21-34) 05/25/18 06:16 Assessment and Plan (1) Ischemic bowel disease Status: Acute (2) Obesity (BMI 30-39.9) Status: Acute (3) Small bowel obstruction Status: Acute (4) Prophylactic measure Status: Acute Attending/Attestation - Attestation I have personally seen and examined this patient.: Yes I have fully participated in the care of the patient.: Yes I have reviewed all pertinent clinical information, including history, physical exam and plan: Yes Notes (Text): This is a late computer entry for 07/09/2018. Patient seen, examined, and case discussed with medical diagnostic radiographer. Patient seen at bedside this morning. Discussed with nursing staff NG tube appears clogged. residential counselor at bedside will removed prior NG tube and re place. He also discussed with nursing staff all the vitamins including B vitamins, a vitamins, E Byman, D vitamin collected and were sent will need to be followed up in repleted as necessary. Pre-albumin low. I've put in for dietitian referral to see how else we can increase it. vice president network is aware to follow-up with lab for the outpatient vitamin levels. Surgical site no drainage noted on wound VAC and prior drain no drainage noted. Patient has requested for test though she reports no sexual activity during hospitalization. Patient is pending GI reversal surgery. I have spoken with Dr. Harley as of Wednesday evening will coordinate with bariatric surgeon to schedule for optimal surgery given that this is a complicated case. I also spoke with patient at bedside as well.
[2018-07-10] MEDS: Ipratropium 0.02% Inhal Soln (0.5 mg/2.5 ml) UD IH SCH ×4 (02:48→19:34)
[2018-07-10] MEDS: Meropenem 1 GM in Sodium Chloride 0.9% 100 ML IVPB SCH ×2 (07:05→15:24)
[2018-07-10 07:41] LABS: BASO # 0.1 K/uL (0.0-0.2); BASO % 1.2 % (0.0-2.0); EOS # 0.6 K/uL (0.0-0.7); EOS % 10.1 % (0.0-4.0); HEMOGLOBIN 9.3 g/dL (11.0-16.0); LYMPH % 34.5 % (20.0-40.0); MEAN CELL VOLUME 87.3 fL (81.0-99.0); MEAN CORPUSCULAR HEMOGLOBIN 28.4 pg (27.0-31.0); MEAN CORPUSCULAR HGB CONC 32.5 g/dL (33.0-37.0); MEAN PLATELET VOLUME 7.2 fL (7.2-11.7); MONO # 0.3 K/uL (0.0-0.8); MONO % 4.5 % (0.0-10.0); NEUT # 2.9 K/uL (1.8-7.0); NEUT % 49.7 % (50.0-75.0); RBC 3.28 Mil/uL (3.80-5.20); RED CELL DISTRIBUTION WIDTH 18.2 % (11.5-14.5); WHITE BLOOD COUNT 5.9 K/uL (4.8-10.8)
[2018-07-10] MEDS: (Novolin R) Insulin Human Regular 100 units/ml vial SC SCH ×3 (07:47→18:25)
[2018-07-10 08:09] LABS: ALBUMIN 2.7 g/dL (3.5-5.0); ALT/SGPT 25 U/L (9-52); AST/SGOT 17 U/L (14-36); BLOOD UREA NITROGEN 7 mg/dL (7-17); CALCIUM 8.4 mg/dl (8.6-10.4); GFR NON-AFRICAN AMERICAN > 60
[2018-07-10] MEDS ORDERED: Pneumococcal 23-Valent Vaccine IM ONE (10:00)
[2018-07-10] MEDS: Loperamide Hydrochloride 1 mg/5 ml Cup PO PRN ×2 (11:02→18:25)
[2018-07-10] MEDS: Cholestyramine 4 gm/Pkt UD PO SCH ×2 (11:02→18:25)
[2018-07-10] MEDS: guaiFENesin 100 mg/5 ml Syrup UD PO PRN ×2 (11:03→18:31)
[2018-07-10] MEDS: Pantoprazole 40 mg Susp UD PO SCH (11:03)
[2018-07-10] MEDS: Benzocaine/Menthol (Cepacol) Lozenge MT PRN ×2 (11:03→18:30)
[2018-07-10] MEDS: Enoxaparin 40 mg Syringe SC SCH (11:03)
[2018-07-10] MEDS: GENTAMICIN 0.1% TOP SCH ×3 (11:05→18:05)
--- NOTE | 2018-07-10 16:15 | CP.PCM.PN ---
<Morris Connolly - Last Filed: 07/10/18 16:12> Subjective - Date & Time of Evaluation Date of Evaluation: 07/10/18 Time of Evaluation: 08:30 - Subjective Subjective: Medicine Progress Note for Hospitalist Service Pt seen and examined at bedside this am. Denies any acute complaints currently this am. Reports coughing up blood yesterday with replacement of NGT but otherwise denies hemoptysis today. NGT suctioning well, 100 cc reported at bedside. Abd wound vac draining minimal fluid today. Denies fever, chills, chest pain, sob, n/v/d/c, urinary complaints, or other symptoms. Pt reported vaginal spotting over past several days, test neg. Objective - Vital Signs/Intake and Output Vital Signs (last 24 hours): Temp Pulse Resp BP Pulse Ox 98.8 F 80 20 106/78 98 07/10/18 07:00 07/10/18 07:00 07/10/18 07:00 07/10/18 07:00 07/10/18 07:00 Intake and Output: 07/10/18 07/10/18 06:59 18:59 Intake Total 268 600 Output Total 150 100 Balance 118 500 - Medications Medications: Current Medications Acetaminophen (Tylenol 650mg/20.3ml Solution Ud) 975 mg GT Q8H PRN PRN Reason: Pain, Mild (1-3) Benzocaine/Menthol (Cepacol Sore Throat) 1 sravan MT Q2H PRN PRN Reason: Sore Throat Last Admin: 07/10/18 11:03 Dose: 1 sravan Calcium Acetate (Phoslo) 667 mg GT TIDCC [facility] Last Admin: 07/10/18 11:03 Dose: 667 mg Cholestyramine Resin (Questran) 4 gm PO BID [facility] Last Admin: 07/10/18 11:02 Dose: 4 gm Dextrose (Dextrose 50% Inj) 0 ml IV STAT PRN; Protocol PRN Reason: Hypoglycemia Protocol Dextrose (Glutose 15) 0 gm PO ONCE PRN; Protocol PRN Reason: Hypoglycemia Protocol Enoxaparin Sodium (Lovenox) 40 mg SC DAILY [facility] Last Admin: 07/10/18 11:03 Dose: 40 mg Ergocalciferol (Drisdol 50,000 Intl Units Cap) 1 cap PO Q7D [facility] Stop: 07/20/18 10:01 Last Admin: 07/06/18 13:12 Dose: 1 cap Escitalopram Oxalate (Lexapro) 10 mg GT DAILY [facility] Last Admin: 07/10/18 11:03 Dose: 10 mg Gentamicin Sulfate (Gentamicin 0.1%) 0 gm TOP TID [facility] Last Admin: 07/10/18 14:03 Dose: 1 oin Glucagon (Glucagen Diagnostic Kit) 0 mg IM STAT PRN; Protocol PRN Reason: Hypoglycemia Protocol Guaifenesin (Robitussin) 100 mg PO Q4H PRN PRN Reason: Cough Last Admin: 07/10/18 11:03 Dose: 100 mg Hydromorphone HCl (Dilaudid) 1 mg IVP Q3 PRN PRN Reason: Pain, SEVERE (8-10) Last Admin: 07/10/18 14:03 Dose: 1 mg Meropenem 1 gm/ Sodium (Chloride) 100 mls @ 100 mls/hr IVPB Q8H [facility]; Protocol Last Admin: 07/10/18 15:24 Dose: 100 mls/hr Influenza Virus Vaccine (Fluzone Quad [id number]) 60 mcg IM .ONCE ONE Stop: 07/11/18 18:01 Insulin Human Regular (Novolin R) 0 unit SC ACHS [facility]; Protocol Last Admin: 07/10/18 07:47 Dose: Not Given Ipratropium [place] (Atrovent) 0.5 mg IH RQ6 [facility] Last Admin: 07/10/18 13:34 Dose: 0.5 mg Loperamide HCl (Imodium) 1 mg PO Q2H PRN PRN Reason: Diarrhea Last Admin: 07/10/18 11:02 Dose: 1 mg Lorazepam (Ativan) 1 mg IVP BID [facility] Last Admin: 07/10/18 11:04 Dose: 1 mg Metoprolol Tartrate (Lopressor) 12.5 mg PEG BID [facility] Last Admin: 07/10/18 11:03 Dose: 12.5 mg Nicotine (Nicoderm Cq) 1 patch TD DAILY [facility] Last Admin: 07/10/18 11:03 Dose: 1 patch Ondansetron HCl (Zofran Inj) 4 mg IVP Q6H PRN PRN Reason: Nausea/Vomiting Last Admin: 07/10/18 11:03 Dose: 4 mg Pantoprazole Sodium (Protonix Susp) 40 mg PO DAILY [facility] Last Admin: 07/10/18 11:03 Dose: 40 mg Saliva Substitute (Mouth Kote 236 Ml) 0 ml MM Q6 PRN PRN Reason: Dry mouth Vitamin A (Vitamin A & D Oint Ud Foilpak) 1 ea TOP Q8 PRN PRN Reason: dry lips Vitamin E (Vitamin E 400 Units Cap) 400 intlu GT DAILY [facility] Last Admin: 07/10/18 11:03 Dose: 400 intlu - Labs Labs: 07/10/18 07:23 07/10/18 07:23 PT 14.3 SECONDS (9.7-12.2) H 06/10/18 07:05 INR 1.3 06/10/18 07:05 APTT 33 SECONDS (21-34) 05/25/18 06:16 - Constitutional Appears: Non-toxic, No Acute Distress, Chronically Ill - Head Exam Head Exam: ATRAUMATIC, NORMOCEPHALIC - Eye Exam Eye Exam: EOMI, Normal appearance, PERRL - ENT Exam ENT Exam: Mucous Membranes Moist - Respiratory Exam Respiratory Exam: Clear to Ausculation Bilateral, NORMAL BREATHING PATTERN - Cardiovascular Exam Cardiovascular Exam: REGULAR RHYTHM, +S1, +S2. absent: Tachycardia, Gallop, Rubs, Murmur - GI/Abdominal Exam GI & Abdominal Exam: Soft, Normal Bowel Sounds. absent: Distended, Firm, Guar ding, Rigid, Tenderness, Organomegaly Additional comments: Abdominal wound vac and gastrostomy tube in place, c/d/i - Extremities Exam Extremities Exam: Full ROM, Normal Capillary Refill, Normal Inspection. absent: Calf Tenderness, Joint Swelling, Pedal Edema - Neurological Exam Neurological Exam: Alert, Awake, CN II-XII Intact, Oriented x3 - Psychiatric Exam Psychiatric exam: Normal Affect, Normal Mood - Skin Skin Exam: Dry, Intact, Warm Assessment and Plan - Assessment and Plan (Free Text) Assessment: 38 y o female with PMHx HTN, HLD, DM2, asthma, s/p bowel resection (05/14/18, 05/16/18) 2/2 internal hernia s/p Binta-en-Y gastric bypass in 2013, admitted for medical optimization prior to reversal of bypass. Plan: Ischemic bowel disease 2/2 internal hernia producing bowel obstruction Current drains include: NGT (intermittent suction per surgery recs) replaced on 07/09/18 by surgery team, gastrostomy tube (replaced 06/10/18) Latest wound cultures: -Abd incision, Peg incision site => Pseudomonas aeruginosa, sensitive to Meropenem -Per ID: Meropenem 1 g q 8 h, Vancomycin 1.5 g IVPB q 12 h (d/c on 07/05/18) -vanco trough 07/05 -- 15.1 Surgery (Dr. Harley) consulted - awaiting Dr Mccray's response on surgical intervention; f/u with surgical team regarding dispo Wound vac to continuous suction, to be replaced Q72hrs, obtain wound culture on next wound vac change Heme/onc (Dr. Cash) consulted for Fe status - repeat ferritin 185, no need for iron infusion at this time, anemia stable today, continue to monitor Other cultures: 06/22/18: abd incision => Pseudomonas aeruginosa sensitive to Meropenem 06/22/18: Peg site => Pseudomonas aeruginosa sensitive to Meropenem 05/14/18: Peritoneal fluid => Pseudomonas aeruginosa sensitive to Meropenem 05/23/18: Wound cx => Yudith albicans 05/15/18, 05/22/18: Blood cx => no growth 05/22/18: Urine cx => no growth 05/31/18: Incision site => Enterococcus faecalis, Acinetobacter baumannii 06/03/18: Stool cxs => No Salmonella, Shigella, or Campylobacter isolates 06/13/18: Repeat wound cx => Coag-neg Staph, Enterococcus raffinosus Antibiotics: Meropenem 1 g q 8 h IVPB, will f/u with ID regarding duration of tx Vancomycin 1.5 g IV q 12 h (started 06/16 at 12 pm), discontinued as per Dr Rivera on 07/05 Cipro 400 mg IV q 12h d/c'd (started 06/02/18, last day 06/16/18) Flagyl 500 mg IVPB q 8 h completed (active from 05/15/18-06/19/18) Gentamicin 0.1% TOP TID apply cream to peg tube site F/u vitamin levels and replace as needed: Vit D < 12.8, 65145 U q1 wk x 8 wks B12 707, wnl; repeat B12 508 Folate 12.6, wnl Vit A 42, wnl Alpha vit E 5.6, wnl Vit A, B1, B6, E levels reordered on 06/15 Vit B1: inappropriately submitted, 06/01/18 valve acceptable Vit B6: 5.9, wnl Vit A, E collected Repeat Vitamin levels ordered on 07/08, f/u results 07/08: Pre-albumin 11.6, B12 508, 25-OH vit D < 12.8 Will discuss with manager local plan for optimizing tube feed nutrition prior to reversal procedure C/w Tylenol 975 mg liquid q 8h, Dilaudid 1 mg q 3 h prn, Zofran 4 mg IV q 6 h prn Tachycardia, persistent, hx into 110s-130s - possible etiologies include pain, infection, anxiety 07/10 HR - 80, continue to monitor and trend Tx for L G tube fluid infection Ativan prn, Dilaudid prn C/w metoprolol tartrate 12.5 mg bid Diarrhea, acute improving - suspect 2/2 PO intake by patient C. Diff (05/22, 05/24, 05/28) neg Stool ova and parasites (05/25/18) neg Stool leukocytes (05/25/18) neg Flagyl course finished Imodium 1 mg PO q 2h prn Anxiety Corporate Travel Counselor consulted - pt initially refused but then accepted Psych consulted (Dr. Reyez) - managing Ativan, c/w prn Lexapro 10 mg GT daily (started 05/31) Insomnia - Benadryl d/c'd, clinically not indicated Anemia, acute, stable, pt denies blood in stool Total 2 PRBC (on 05/16) and 4 FFP (on 05/15 and 05/16) 07/10 hb 9.3, hct: 28.7 Iron 16, TIBC 205, % sat 4.7, repeat ferritin 185 after Ferrlecit Monitor CBC q2d Per Dr. Cash, consider Procrit supplementation in attempt to avoid further transfusions if Hgb < 9 Thrombocytosis - suspect reactive to pain, surgery; resolved 07/10 platelets: 274 Monitor CBC q2d DM2, controlled From prior note: admittedly non-compliant, has not taken Januvia for 1 y Accuchecks q6h Hypoglycemic protocol ISS regular HgbA1c 5.8 Hx gastric bypass surgery Hypercholesterolemia, untx LDL < 30, HDL < 23, Chol 59, TG 195 (06/03/18) Hx gastric bypass surgery Questran 4 g PO bid Hx HTN, controlled Since gastric bypass has not taken meds Metoprolol 12.5 mg bid Hx Asthma - Chronic Continue to monitor Atrovent prn Not c/o productive cough today, Robitussin prn, defer steroids at this time due to concern for wound healing s/p surgical procedures Nicotine use disorder - Chronic From prior note: 1 ppd x 20 y, 1/2 ppd x 3 y C/w Nicoderm patch Electrolyte imbalance - Hypokalemia, Hypomagnesemia; improving F/u am labs, replete as needed Mg 1.7 on 07/10, K 3.8 PPX, Diet, Dispo Hydrocortisone 1% cream top tid for R upper inner arm macular rash - improved Vitamin A+D top q 8h prn for dry lips Saliva substitute q 6 h prn for dry mouth IVF not indicated at this time VTE ppx: Lovenox 40 subQ d, SCDs, encourage ambulation GI ppx: Protonix 40 mg IV bid, Florastor bid Code status: Full code Continue PT services, follow up recs Dispo: Continue to optimize patient for reversal surgery. Dr. Harley to coordinate with Dr. Mccray plan for intervention. Pt to remain inpatient until reversal procedure performed by surgical team. Pt seen, examined with, and plan discussed with Dr. Turk, attending. Morris Connolly DO PGY-1, Application Developer Pager #[phone] <Doretha Turk V - Last Filed: 07/10/18 18:31> Objective - Vital Signs/Intake and Output Vital Signs (last 24 hours): Temp Pulse Resp BP Pulse Ox 98.4 F 93 H 20 113/77 96 07/10/18 15:45 07/10/18 15:45 07/10/18 15:45 07/10/18 15:45 07/10/18 15:45 Intake and Output: 07/10/18 07/10/18 06:59 18:59 Intake Total 268 600 Output Total 150 100 Balance 118 500 - Medications Medications: Current Medications Acetaminophen (Tylenol 650mg/20.3ml Solution Ud) 975 mg GT Q8H PRN PRN Reason: Pain, Mild (1-3) Benzocaine/Menthol (Cepacol Sore Throat) 1 sravan MT Q2H PRN PRN Reason: Sore Throat Last Admin: 07/10/18 11:03 Dose: 1 sravan Calcium Acetate (Phoslo) 667 mg GT TIDCC [facility] Last Admin: 07/10/18 18:25 Dose: 667 mg Cholestyramine Resin (Questran) 4 gm PO BID [facility] Last Admin: 07/10/18 18:25 Dose: 4 gm Dextrose (Dextrose 50% Inj) 0 ml IV STAT PRN; Protocol PRN Reason: Hypoglycemia Protocol Last Admin: 07/10/18 18:22 Dose: 25 ml Dextrose (Glutose 15) 0 gm PO ONCE PRN; Protocol PRN Reason: Hypoglycemia Protocol Enoxaparin Sodium (Lovenox) 40 mg SC DAILY [facility] Last Admin: 07/10/18 11:03 Dose: 40 mg Ergocalciferol (Drisdol 50,000 Intl Units Cap) 1 cap PO Q7D [facility] Stop: 07/20/18 10:01 Last Admin: 07/06/18 13:12 Dose: 1 cap Escitalopram Oxalate (Lexapro) 10 mg GT DAILY [facility] Last Admin: 07/10/18 11:03 Dose: 10 mg Gentamicin Sulfate (Gentamicin 0.1%) 0 gm TOP TID [facility] Last Admin: 07/10/18 14:03 Dose: 1 oin Glucagon (Glucagen Diagnostic Kit) 0 mg IM STAT PRN; Protocol PRN Reason: Hypoglycemia Protocol Guaifenesin (Robitussin) 100 mg PO Q4H PRN PRN Reason: Cough Last Admin: 07/10/18 11:03 Dose: 100 mg Hydromorphone HCl (Dilaudid) 1 mg IVP Q3 PRN PRN Reason: Pain, SEVERE (8-10) Last Admin: 07/10/18 17:05 Dose: 1 mg Meropenem 1 gm/ Sodium (Chloride) 100 mls @ 100 mls/hr IVPB Q8H [facility]; Protocol Last Admin: 07/10/18 15:24 Dose: 100 mls/hr Influenza Virus Vaccine (Fluzone Quad [id number]) 60 mcg IM .ONCE ONE Stop: 07/11/18 18:01 Insulin Human Regular (Novolin R) 0 unit SC ACHS [facility]; Protocol Last Admin: 07/10/18 18:25 Dose: Not Given Ipratropium [place] (Atrovent) 0.5 mg IH RQ6 [facility] Last Admin: 07/10/18 13:34 Dose: 0.5 mg Loperamide HCl (Imodium) 1 mg PO Q2H PRN PRN Reason: Diarrhea Last Admin: 07/10/18 18:25 Dose: 1 mg Lorazepam (Ativan) 1 mg IVP BID [facility] Last Admin: 07/10/18 17:05 Dose: 1 mg Metoprolol Tartrate (Lopressor) 12.5 mg PEG BID [facility] Last Admin: 07/10/18 18:25 Dose: 12.5 mg Nicotine (Nicoderm Cq) 1 patch TD DAILY [facility] Last Admin: 07/10/18 11:03 Dose: 1 patch Ondansetron HCl (Zofran Inj) 4 mg IVP Q6H PRN PRN Reason: Nausea/Vomiting Last Admin: 07/10/18 11:03 Dose: 4 mg Pantoprazole Sodium (Protonix Susp) 40 mg PO DAILY [facility] Last Admin: 07/10/18 11:03 Dose: 40 mg Saliva Substitute (Mouth Kote 236 Ml) 0 ml MM Q6 PRN PRN Reason: Dry mouth Vitamin A (Vitamin A & D Oint Ud Foilpak) 1 ea TOP Q8 PRN PRN Reason: dry lips Vitamin E (Vitamin E 400 Units Cap) 400 intlu GT DAILY [facility] Last Admin: 07/10/18 11:03 Dose: 400 intlu - Labs Labs: 07/10/18 07:23 07/10/18 07:23 PT 14.3 SECONDS (9.7-12.2) H 06/10/18 07:05 INR 1.3 06/10/18 07:05 APTT 33 SECONDS (21-34) 05/25/18 06:16 Assessment and Plan (1) Ischemic bowel disease Status: Acute (2) Obesity (BMI 30-39.9) Status: Acute (3) Small bowel obstruction Status: Acute (4) Prophylactic measure Status: Acute Attending/Attestation - Attestation I have personally seen and examined this patient.: Yes I have fully participated in the care of the patient.: Yes I have reviewed all pertinent clinical information, including history, physical exam and plan: Yes Notes (Text): Patient seen, examined, case discussed with medical office assistant instructor. Patient seen this morning. Patient is ambulatory and in good spirits. Patient hemoglobin stable in the 9.3. Noted mild trace blood after NG tube placement surgery is aware. will continue to monitor output. Please NG tube on 07/09/2018. Minimal output from wound VAC. Patient is due for wound VAC change tomorrow. Dictation referral pending for improvement pre-albumin. Vitamins were collected yesterday we'll are send outs medical office assistant instructor is aware to call lab to see if any further adjustments need to be made. Patient has been on vitamin E supplementation since 06/12/2018. Patient initially started on vitamin D supplementation as of June 01 she has received total 7 doses 90 we will need 8-12 doses. Patient has a very completed 1 week's worth of Ferrlecit by he month. We will need to follow-up with infectious disease and patient has been presently on meropenem for abdominal wound infections to see when she officially comes off. Surgeon to follow-up with bariatric surgeon to coordinate future surgery. We will continue to monitor.
[2018-07-10] MEDS: Dextrose 50% SYRINGE Inj (50 ml) IV PRN (18:22)
[2018-07-10] MEDS: Acetaminophen 650mg/20.3ml solution UD GT PRN (18:30)
[2018-07-10] MEDS ORDERED: Dextrose 50% SYRINGE Inj (50 ml) ONE (23:55)
[2018-07-11] MEDS: Meropenem 1 GM in Sodium Chloride 0.9% 100 ML IVPB SCH ×3 (00:04→14:42)
[2018-07-11] MEDS: Ipratropium 0.02% Inhal Soln (0.5 mg/2.5 ml) UD IH SCH ×4 (02:00→19:44)
[2018-07-11] MEDS: (Novolin R) Insulin Human Regular 100 units/ml vial SC SCH ×4 (07:56→22:19)
--- NOTE | 2018-07-11 09:31 | CP.PCM.PN ---
<Cathleen,Morris - Last Filed: 07/11/18 14:27> Subjective - Date & Time of Evaluation Date of Evaluation: 07/11/18 Time of Evaluation: 09:05 - Subjective Subjective: Medicine Progress Note for Hospitalist Service Pt seen and examined at bedside this am. Reported abd pain earlier but controlled currently with dilaudid prn. No acute events reported overnight. 50 cc observed in NGT suction. Reporting fewer episodes of diarrhea today. Denies headache, fever, chills, chest pain, sob, n/v/c, abd pain, urinary complaints, or other symptoms. Observed pt ambulating around floor today without issues. Objective - Vital Signs/Intake and Output Vital Signs (last 24 hours): Temp Pulse Resp BP Pulse Ox 97.4 F L 97 H 20 99/66 L 95 07/10/18 23:20 07/10/18 23:20 07/10/18 23:20 07/10/18 23:20 07/10/18 23:20 Intake and Output: 07/11/18 07/11/18 06:59 18:59 Output Total 100 Balance -100 - Medications Medications: Current Medications Acetaminophen (Tylenol 650mg/20.3ml Solution Ud) 975 mg GT Q8H PRN PRN Reason: Pain, Mild (1-3) Last Admin: 07/10/18 18:30 Dose: 975 mg Benzocaine/Menthol (Cepacol Sore Throat) 1 sravan MT Q2H PRN PRN Reason: Sore Throat Last Admin: 07/10/18 18:30 Dose: 1 sravan Calcium Acetate (Phoslo) 667 mg GT TIDCC [facility] Last Admin: 07/11/18 08:18 Dose: 667 mg Cholestyramine Resin (Questran) 4 gm PO BID [facility] Last Admin: 07/10/18 18:25 Dose: 4 gm Dextrose (Dextrose 50% Inj) 0 ml IV STAT PRN; Protocol PRN Reason: Hypoglycemia Protocol Last Admin: 07/10/18 18:22 Dose: 25 ml Dextrose (Glutose 15) 0 gm PO ONCE PRN; Protocol PRN Reason: Hypoglycemia Protocol Enoxaparin Sodium (Lovenox) 40 mg SC DAILY [facility] Last Admin: 07/10/18 11:03 Dose: 40 mg Ergocalciferol (Drisdol 50,000 Intl Units Cap) 1 cap PO Q7D [facility] Stop: 07/20/18 10:01 Last Admin: 07/06/18 13:12 Dose: 1 cap Escitalopram Oxalate (Lexapro) 10 mg GT DAILY [facility] Last Admin: 07/10/18 11:03 Dose: 10 mg Gentamicin Sulfate (Gentamicin 0.1%) 0 gm TOP TID [facility] Last Admin: 07/10/18 18:05 Dose: Not Given Glucagon (Glucagen Diagnostic Kit) 0 mg IM STAT PRN; Protocol PRN Reason: Hypoglycemia Protocol Guaifenesin (Robitussin) 100 mg PO Q4H PRN PRN Reason: Cough Last Admin: 07/10/18 18:31 Dose: 100 mg Hydromorphone HCl (Dilaudid) 1 mg IVP Q3 PRN PRN Reason: Pain, SEVERE (8-10) Last Admin: 07/11/18 08:18 Dose: 1 mg Meropenem 1 gm/ Sodium (Chloride) 100 mls @ 100 mls/hr IVPB Q8H [facility]; Protocol Last Admin: 07/11/18 06:41 Dose: 100 mls/hr Influenza Virus Vaccine (Fluzone Quad [id number]) 60 mcg IM .ONCE ONE Stop: 07/11/18 18:01 Insulin Human Regular (Novolin R) 0 unit SC ACHS [facility]; Protocol Last Admin: 07/11/18 07:56 Dose: Not Given Ipratropium [place] (Atrovent) 0.5 mg IH RQ6 [facility] Last Admin: 07/11/18 08:49 Dose: 0.5 mg Loperamide HCl (Imodium) 1 mg PO Q2H PRN PRN Reason: Diarrhea Last Admin: 07/10/18 18:25 Dose: 1 mg Lorazepam (Ativan) 1 mg IVP BID [facility] Last Admin: 07/10/18 17:05 Dose: 1 mg Metoprolol Tartrate (Lopressor) 12.5 mg PEG BID [facility] Last Admin: 07/10/18 18:25 Dose: 12.5 mg Nicotine (Nicoderm Cq) 1 patch TD DAILY [facility] Last Admin: 07/10/18 11:03 Dose: 1 patch Ondansetron HCl (Zofran Inj) 4 mg IVP Q6H PRN PRN Reason: Nausea/Vomiting Last Admin: 07/10/18 11:03 Dose: 4 mg Pantoprazole Sodium (Protonix Susp) 40 mg PO DAILY [facility] Last Admin: 07/10/18 11:03 Dose: 40 mg Saliva Substitute (Mouth Kote 236 Ml) 0 ml MM Q6 PRN PRN Reason: Dry mouth Vitamin A (Vitamin A & D Oint Ud Foilpak) 1 ea TOP Q8 PRN PRN Reason: dry lips Vitamin E (Vitamin E 400 Units Cap) 400 intlu GT DAILY [facility] Last Admin: 07/10/18 11:03 Dose: 400 intlu - Labs Labs: 07/10/18 07:23 07/10/18 07:23 PT 14.3 SECONDS (9.7-12.2) H 06/10/18 07:05 INR 1.3 06/10/18 07:05 APTT 33 SECONDS (21-34) 05/25/18 06:16 - Constitutional Appears: Non-toxic, No Acute Distress, Chronically Ill - Head Exam Head Exam: ATRAUMATIC, NORMOCEPHALIC Additional comments: NGT in place, not dislodged - Eye Exam Eye Exam: EOMI, Normal appearance, PERRL - ENT Exam ENT Exam: Mucous Membranes Moist - Respiratory Exam Respiratory Exam: Clear to Ausculation Bilateral, NORMAL BREATHING PATTERN. absent: Rales, Rhonchi, Wheezes - Cardiovascular Exam Cardiovascular Exam: REGULAR RHYTHM, +S1, +S2 - GI/Abdominal Exam GI & Abdominal Exam: Soft, Normal Bowel Sounds. absent: Distended, Firm, Guarding, Tenderness, Organomegaly Additional comments: Abdominal wound vac and gastrostomy tube in place, c/d/i - Extremities Exam Extremities Exam: Full ROM, Normal Capillary Refill, Normal Inspection. absent: Calf Tenderness, Joint Swelling - Neurological Exam Neurological Exam: Alert, Awake, CN II-XII Intact, Normal Gait, Oriented x3 - Psychiatric Exam Psychiatric exam: Normal Affect, Normal Mood - Skin Skin Exam: Dry, Intact, Normal Color, Warm Assessment and Plan - Assessment and Plan (Free Text) Assessment: 38 y o female with PMHx HTN, HLD, DM2, asthma, s/p bowel resection (05/14/18, 05/16/18) 2/2 internal hernia s/p Binta-en-Y gastric bypass in 2013, admitted for medical optimization prior to reversal of bypass. Plan: Ischemic bowel disease 2/2 internal hernia producing bowel obstruction Current drains include: NGT (intermittent suction per surgery recs) replaced on 07/09/18 by surgery team, gastrostomy tube (replaced 06/10/18) Latest wound cultures: -Abd incision, Peg incision site => Pseudomonas aeruginosa, sensitive to Kishan penem -Per ID: Meropenem 1 g q 8 h, Vancomycin 1.5 g IVPB q 12 h (d/c on 07/05/18) -vanco trough 07/05 -- 15.1 Surgery (Dr. Harley) consulted - awaiting Dr Mccray's response on surgical i ntervention; f/u with surgical team regarding dispo Wound vac to continuous suction, to be replaced Q72hrs, obtain wound culture on next wound vac change Heme/onc (Dr. Cash) consulted for Fe status - repeat ferritin 185, no need for iron infusion at this time, anemia stable today, continue to monitor Other cultures: 06/22/18: abd incision => Pseudomonas aeruginosa sensitive to Meropenem 06/22/18: Peg site => Pseudomonas aeruginosa sensitive to Meropenem 05/14/18: Peritoneal fluid => Pseudomonas aeruginosa sensitive to Meropenem 05/23/18: Wound cx => Yudith albicans 05/15/18, 05/22/18: Blood cx => no growth 05/22/18: Urine cx => no growth 05/31/18: Incision site => Enterococcus faecalis, Acinetobacter baumannii 06/03/18: Stool cxs => No Salmonella, Shigella, or Campylobacter isolates 06/13/18: Repeat wound cx => Coag-neg Staph, Enterococcus raffinosus Antibiotics: Meropenem 1 g q 8 h IVPB, will f/u with ID regarding duration of tx Vancomycin 1.5 g IV q 12 h (started 06/16 at 12 pm), discontinued as per Dr Rivera on 07/05 Cipro 400 mg IV q 12h d/c'd (started 06/02/18, last day 06/16/18) Flagyl 500 mg IVPB q 8 h completed (active from 05/15/18-06/19/18) Gentamicin 0.1% TOP TID apply cream to peg tube site F/u vitamin levels and replace as needed: Vit D < 12.8, 56271 U q1 wk x 8 wks B12 707, wnl; repeat B12 508 Folate 12.6, wnl Vit A 42, wnl Alpha vit E 5.6, wnl Vit A, B1, B6, E levels reordered on 06/15 Vit B1: inappropriately submitted, 06/01/18 valve acceptable Vit B6: 5.9, wnl Vit A, E collected Repeat Vitamin levels ordered on 07/08, f/u results 07/08: Pre-albumin 11.6, B12 508, 25-OH vit D < 12.8 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 Diff (05/22, 05/24, 05/28) neg Stool ova and parasites (05/25/18) neg Stool leukocytes (05/25/18) neg Flagyl course finished Imodium 1 mg PO q 2h prn Anxiety Egg Packer consulted - pt refusing at this time Psych consulted (Dr. Reyez) - managing Ativan, c/w prn Lexapro 10 mg GT daily (started 05/31) Insomnia - Benadryl d/c'd, clinically not indicated Anemia, acute, stable, pt denies blood in stool Total 2 PRBC (on 05/16) and 4 FFP (on 05/15 and 05/16) 07/10 hb 9.3, hct: 28.7 Iron 16, TIBC 205, % sat 4.7, repeat ferritin 185 after Ferrlecit Monitor CBC q2d Per Dr. Cash, consider Procrit supplementation in attempt to avoid further transfusions if Hgb < 9 Thrombocytosis - suspect reactive to pain, surgery; resolved 07/10 platelets: 274 Monitor CBC q2d DM2, controlled From prior note: admittedly non-compliant, has not taken Januvia for 1 y Accuchecks q6h Hypoglycemic protocol ISS regular HgbA1c 5.8 Hx gastric bypass surgery Hypercholesterolemia, untx LDL < 30, HDL < 23, Chol 59, TG 195 (06/03/18) Hx gastric bypass surgery Questran 4 g PO bid Hx HTN, controlled Since gastric bypass has not taken meds Metoprolol 12.5 mg bid Hx Asthma - Chronic Continue to monitor Atrovent prn C/o productive cough on and off today, Robitussin prn, defer steroids at this time due to concern for wound healing s/p surgical procedures Nicotine use disorder - Chronic From prior note: 1 ppd x 20 y, 1/2 ppd x 3 y C/w Nicoderm patch Electrolyte imbalance - Hypokalemia, Hypomagnesemia; improving F/u am labs, replete as needed Mg 1.7 on 07/10, K 3.8 PPX, Diet, Dispo Hydrocortisone 1% cream top tid for R upper inner arm macular rash - improved Vitamin A+D top q 8h prn for dry lips Saliva substitute q 6 h prn for dry mouth IVF not indicated at this time VTE ppx: Lovenox 40 subQ d, SCDs, encourage ambulation GI ppx: Protonix 40 mg IV bid, Florastor bid Code status: Full code Continue PT services, follow up recs Dispo: Continue to optimize patient for reversal surgery. Dr. Harley to coordinate with Dr. Mccray plan for intervention. Pt to remain inpatient until reversal procedure performed by surgical team. Pt seen, examined with, and plan discussed with Dr. Turk, attending. Morris Connolly DO PGY-1, [employer] Supervisor Pager #[phone] <Doretha Turk V - Last Filed: 07/17/18 20:39> Objective - Vital Signs/Intake and Output Vital Signs (last 24 hours): Temp Pulse Resp BP Pulse Ox 98.5 F 95 H 20 127/89 98 07/17/18 15:08 07/17/18 15:08 07/17/18 15:08 07/17/18 15:08 07/17/18 15:08 Intake and Output: 07/17/18 07/18/18 18:59 06:59 Intake Total 1200 Output Total 100 Balance 1100 - Medications Medications: Current Medications Acetaminophen (Tylenol 650mg/20.3ml Solution Ud) 975 mg GT Q8H PRN PRN Reason: Pain, Mild (1-3) Last Admin: 07/17/18 07:09 Dose: 975 mg Benzocaine/Menthol (Cepacol Sore Throat) 1 sravan MT Q2H PRN PRN Reason: Sore Throat Last Admin: 07/17/18 18:47 Dose: 1 sravan Calcium Acetate (Phoslo) 667 mg GT TIDCC [facility] Last Admin: 07/17/18 18:46 Dose: 667 mg Cholestyramine Resin (Questran) 4 gm PO BID [facility] Last Admin: 07/17/18 18:46 Dose: 4 gm Dextrose (Dextrose 50% Inj) 0 ml IV STAT PRN; Protocol PRN Reason: Hypoglycemia Protocol Last Admin: 07/10/18 18:22 Dose: 25 ml Dextrose (Glutose 15) 0 gm PO ONCE PRN; Protocol PRN Reason: Hypoglycemia Protocol Enoxaparin Sodium (Lovenox) 40 mg SC DAILY [facility] Last Admin: 07/17/18 10:40 Dose: 40 mg Ergocalciferol (Drisdol 50,000 Intl Units Cap) 1 cap PO Q7D [facility] Stop: 07/20/18 10:01 Last Admin: 07/13/18 10:57 Dose: 1 cap Escitalopram Oxalate (Lexapro) 10 mg GT DAILY [facility] Last Admin: 07/17/18 10:39 Dose: 10 mg Gentamicin Sulfate (Gentamicin 0.1%) 0 gm TOP TID [facility] Last Admin: 07/17/18 18:46 Dose: 1 oin Glucagon (Glucagen Diagnostic Kit) 0 mg IM STAT PRN; Protocol PRN Reason: Hypoglycemia Protocol Guaifenesin (Robitussin) 100 mg PO Q4H PRN PRN Reason: Cough Last Admin: 07/16/18 21:51 Dose: 100 mg Hydromorphone HCl (Dilaudid) 1 mg IVP Q3H PRN PRN Reason: Pain, Mild (1-3) Last Admin: 07/17/18 17:42 Dose: 1 mg Meropenem 1 gm/ Sodium (Chloride) 100 mls @ 100 mls/hr IVPB Q8H [facility]; Protocol Last Admin: 07/17/18 08:58 Dose: 100 mls/hr Micafungin Sodium 100 mg/ (Sodium Chloride) 100 mls @ 100 mls/hr IV Q24H [facility]; Protocol Last Admin: 07/17/18 00:01 Dose: 100 mls/hr Sodium Chloride (Sodium Chloride 0.9%) 1,000 mls @ 100 mls/hr IV .Q10H [facility] Last Admin: 07/17/18 13:20 Dose: 100 mls/hr Vancomycin HCl 1,000 mg/ (Sodium Chloride) 200 mls @ 133.333 mls/hr IVPB Q12H [facility]; Protocol Last Admin: 07/17/18 17:42 Dose: 133.333 mls/hr Insulin Human Regular (Novolin R) 0 unit SC ACHS [facility]; Protocol Last Admin: 07/17/18 12:03 Dose: Not Given Ipratropium [place] (Atrovent) 0.5 mg IH RQ6 [facility] Last Admin: 07/17/18 19:30 Dose: 0.5 mg Loperamide HCl (Imodium) 1 mg PO Q2H PRN PRN Reason: Diarrhea Last Admin: 07/17/18 18:46 Dose: 1 mg Loratadine (Claritin) 10 mg PO DAILY [facility] Last Admin: 07/17/18 10:39 Dose: 10 mg Lorazepam (Ativan) 1 mg IVP BID [facility] Last Admin: 07/17/18 18:45 Dose: 1 mg Metoprolol Tartrate (Lopressor) 12.5 mg PEG BID [facility] Last Admin: 07/17/18 18:46 Dose: 12.5 mg Nicotine (Nicoderm Cq) 1 patch TD DAILY [facility] Last Admin: 07/17/18 10:39 Dose: 1 patch Ondansetron HCl (Zofran Inj) 4 mg IVP Q6H PRN PRN Reason: Nausea/Vomiting Last Admin: 07/17/18 18:45 Dose: 4 mg Pantoprazole Sodium (Protonix Susp) 40 mg PO DAILY [facility] Last Admin: 07/17/18 10:39 Dose: 40 mg Saliva Substitute (Mouth Kote 236 Ml) 0 ml MM Q6 PRN PRN Reason: Dry mouth Vitamin A (Vitamin A & D Oint Ud Foilpak) 1 ea TOP Q8 PRN PRN Reason: dry lips Vitamin E (Vitamin E 400 Units Cap) 400 intlu GT DAILY [facility] Last Admin: 07/17/18 10:39 Dose: 400 intlu - Labs Labs: 07/17/18 07:53 07/17/18 07:53 PT 14.3 SECONDS (9.7-12.2) H 06/10/18 07:05 INR 1.3 06/10/18 07:05 APTT 33 SECONDS (21-34) 05/25/18 06:16 Assessment and Plan (1) Ischemic bowel disease Status: Acute (2) Obesity (BMI 30-39.9) Status: Acute (3) Small bowel obstruction Status: Acute (4) Prophylactic measure Status: Acute Attending/Attestation - Attestation I have personally seen and examined this patient.: Yes I have fully participated in the care of the patient.: Yes I have reviewed all pertinent clinical information, including history, physical exam and plan: Yes Notes (Text): This is late computer entry for 07/11/2018. Patient seen, examined, case discussed with medical practice manager. Agree with assessment plan as written by the resident. Patient is officially at 8 weeks from her surgery from 05/16/2018 will need to follow-up with surgery in preparation with bariatric surgeon for future surgery. We are awaiting vitamin levels which were drawn on Wednesday which I confirm with the nurse. NG tube was replaced over the weekend. Patient to continue IV antibiotics per infectious disease. Patient wound dressing change by surgery today.
[2018-07-11] MEDS: Cholestyramine 4 gm/Pkt UD PO SCH ×2 (10:56→19:12)
[2018-07-11] MEDS: Benzocaine/Menthol (Cepacol) Lozenge MT PRN ×2 (10:57→19:34)
[2018-07-11] MEDS: Pantoprazole 40 mg Susp UD PO SCH (10:57)
[2018-07-11] MEDS: Loperamide Hydrochloride 1 mg/5 ml Cup PO PRN ×2 (10:57→19:35)
[2018-07-11] MEDS: guaiFENesin 100 mg/5 ml Syrup UD PO PRN (10:58)
[2018-07-11] MEDS: GENTAMICIN 0.1% TOP SCH ×3 (11:03→19:14)
[2018-07-11] MEDS: Enoxaparin 40 mg Syringe SC SCH (11:04)
[2018-07-11] MEDS ORDERED: Influenza Vaccine 60 MCG/0.5 ML SYR (3 yr & up) IM ONE ×2 (18:00→22:30)
--- NOTE | 2018-07-11 20:53 | CP.PCM.PN ---
Subjective - Date & Time of Evaluation Date of Evaluation: 07/11/18 Time of Evaluation: 16:50 - Subjective Subjective: dictated Objective - Vital Signs/Intake and Output Vital Signs (last 24 hours): Temp Pulse Resp BP Pulse Ox 98.2 F 82 20 132/89 98 07/11/18 16:00 07/11/18 16:00 07/11/18 16:00 07/11/18 16:00 07/11/18 16:00 Intake and Output: 07/11/18 07/12/18 18:59 06:59 Intake Total 138 Output Total 400 Balance -262 - Medications Medications: Current Medications Acetaminophen (Tylenol 650mg/20.3ml Solution Ud) 975 mg GT Q8H PRN PRN Reason: Pain, Mild (1-3) Last Admin: 07/10/18 18:30 Dose: 975 mg Benzocaine/Menthol (Cepacol Sore Throat) 1 sravan MT Q2H PRN PRN Reason: Sore Throat Last Admin: 07/11/18 19:34 Dose: 1 sravan Calcium Acetate (Phoslo) 667 mg GT TIDCC [facility] Last Admin: 07/11/18 19:13 Dose: 667 mg Cholestyramine Resin (Questran) 4 gm PO BID [facility] Last Admin: 07/11/18 19:12 Dose: 4 gm Dextrose (Dextrose 50% Inj) 0 ml IV STAT PRN; Protocol PRN Reason: Hypoglycemia Protocol Last Admin: 07/10/18 18:22 Dose: 25 ml Dextrose (Glutose 15) 0 gm PO ONCE PRN; Protocol PRN Reason: Hypoglycemia Protocol Enoxaparin Sodium (Lovenox) 40 mg SC DAILY [facility] Last Admin: 07/11/18 11:04 Dose: 40 mg Ergocalciferol (Drisdol 50,000 Intl Units Cap) 1 cap PO Q7D [facility] Stop: 07/20/18 10:01 Last Admin: 07/06/18 13:12 Dose: 1 cap Escitalopram Oxalate (Lexapro) 10 mg GT DAILY [facility] Last Admin: 07/11/18 10:58 Dose: 10 mg Gentamicin Sulfate (Gentamicin 0.1%) 0 gm TOP TID [facility] Last Admin: 07/11/18 19:14 Dose: 1 oin Glucagon (Glucagen Diagnostic Kit) 0 mg IM STAT PRN; Protocol PRN Reason: Hypoglycemia Protocol Guaifenesin (Robitussin) 100 mg PO Q4H PRN PRN Reason: Cough Last Admin: 07/11/18 10:58 Dose: 100 mg Hydromorphone HCl (Dilaudid) 1 mg IVP Q3 PRN PRN Reason: Pain, SEVERE (8-10) Last Admin: 07/11/18 17:25 Dose: 1 mg Insulin Human Regular (Novolin R) 0 unit SC ACHS [facility]; Protocol Last Admin: 07/11/18 17:00 Dose: Not Given Ipratropium [place] (Atrovent) 0.5 mg IH RQ6 [facility] Last Admin: 07/11/18 19:44 Dose: Not Given Loperamide HCl (Imodium) 1 mg PO Q2H PRN PRN Reason: Diarrhea Last Admin: 07/11/18 19:35 Dose: 1 mg Lorazepam (Ativan) 1 mg IVP BID [facility] Last Admin: 07/11/18 19:15 Dose: 1 mg Metoprolol Tartrate (Lopressor) 12.5 mg PEG BID [facility] Last Admin: 07/11/18 19:14 Dose: 12.5 mg Nicotine (Nicoderm Cq) 1 patch TD DAILY [facility] Last Admin: 07/11/18 10:56 Dose: 1 patch Ondansetron HCl (Zofran Inj) 4 mg IVP Q6H PRN PRN Reason: Nausea/Vomiting Last Admin: 07/11/18 19:35 Dose: 4 mg Pantoprazole Sodium (Protonix Susp) 40 mg PO DAILY [facility] Last Admin: 07/11/18 10:57 Dose: 40 mg Saliva Substitute (Mouth Kote 236 Ml) 0 ml MM Q6 PRN PRN Reason: Dry mouth Vitamin A (Vitamin A & D Oint Ud Foilpak) 1 ea TOP Q8 PRN PRN Reason: dry lips Vitamin E (Vitamin E 400 Units Cap) 400 intlu GT DAILY [facility] Last Admin: 07/11/18 10:57 Dose: 400 intlu - Labs Labs: 07/10/18 07:23 07/10/18 07:23 PT 14.3 SECONDS (9.7-12.2) H 06/10/18 07:05 INR 1.3 06/10/18 07:05 APTT 33 SECONDS (21-34) 05/25/18 06:16
[2018-07-12] MEDS: Ipratropium 0.02% Inhal Soln (0.5 mg/2.5 ml) UD IH SCH ×4 (01:04→19:55)
--- NOTE | 2018-07-12 03:00 | PN ---
DATE: 07/11/2018 SUBJECTIVE: The patient was seen today. She still has a wound VAC but is not draining much. I had seen the wound before. It has been improving, and currently, she is doing better. She still has the NG tube. No shortness of breath. No nausea, no vomiting. No fever or chills. She has received meropenem for more than 10 days. I have planned to cut it off the jejunostomy tube, they are putting 1% gentamicin and the nurse told me that it is improving. PHYSICAL EXAMINATION: VITAL SIGNS: Stable. T-max is 97.4, pulse 97, blood pressure 99/66, respirations are stable at 20. LUNGS: Clear. HEART: S1, S2 regular. ABDOMEN: Soft. Wound VAC still attached, it probably can come off. EXTREMITIES: Have no edema. Can get her off meropenem at this time, and we will follow. She is awaiting definitive surgery for reconstruction of GI tract as she had ischemic bowel and has been on constant TPN by the PICC line. Guero Rivera MD
[2018-07-12 07:49] LABS: BASO # 0.1 K/uL (0.0-0.2); EOS # 0.6 K/uL (0.0-0.7); EOS % 9.8 % (0.0-4.0); HEMOGLOBIN 10.1 g/dL (11.0-16.0); LYMPH # 2.5 K/uL (1.0-4.3); LYMPH % 39.9 % (20.0-40.0); MEAN CELL VOLUME 87.7 fL (81.0-99.0); MEAN CORPUSCULAR HEMOGLOBIN 28.7 pg (27.0-31.0); MEAN CORPUSCULAR HGB CONC 32.8 g/dL (33.0-37.0); MEAN PLATELET VOLUME 7.3 fL (7.2-11.7); MONO # 0.4 K/uL (0.0-0.8); MONO % 6.1 % (0.0-10.0); NEUT # 2.7 K/uL (1.8-7.0); NEUT % 43.2 % (50.0-75.0); NRBC % 0.1 % (0.0-2.0); RBC 3.51 Mil/uL (3.80-5.20); RED CELL DISTRIBUTION WIDTH 17.8 % (11.5-14.5); WHITE BLOOD COUNT 6.3 K/uL (4.8-10.8)
[2018-07-12] MEDS: (Novolin R) Insulin Human Regular 100 units/ml vial SC SCH ×4 (07:56→21:00)
[2018-07-12 08:35] LABS: ALB/GLOB RATIO 0.9 (1.0-2.1); ALBUMIN 2.8 g/dL (3.5-5.0); ALT/SGPT 33 U/L (9-52); AST/SGOT 29 U/L (14-36); BLOOD UREA NITROGEN 5 mg/dL (7-17); CALCIUM 8.6 mg/dl (8.6-10.4); GFR NON-AFRICAN AMERICAN > 60
[2018-07-12] MEDS: Enoxaparin 40 mg Syringe SC SCH (09:54)
[2018-07-12] MEDS: GENTAMICIN 0.1% TOP SCH ×2 (09:54→18:47)
[2018-07-12] MEDS: Cholestyramine 4 gm/Pkt UD PO SCH ×2 (09:55→18:38)
[2018-07-12] MEDS: Pantoprazole 40 mg Susp UD PO SCH (09:55)
[2018-07-12] MEDS: guaiFENesin 100 mg/5 ml Syrup UD PO PRN ×2 (09:55→18:44)
[2018-07-12] MEDS: Loperamide Hydrochloride 1 mg/5 ml Cup PO PRN ×2 (09:55→18:44)
--- NOTE | 2018-07-12 18:38 | CP.PCM.PN ---
<Humberto Banegas - Last Filed: 07/12/18 19:46> Subjective - Date & Time of Evaluation Date of Evaluation: 07/12/18 Time of Evaluation: 09:30 - Subjective Subjective: PGY-[address] Kirby service Patient is seen and examined sitting in bed. Patient reports no acute events overnight. Patient states feeling nauseous at times, but this is of chronic nature. Patient says medication helps with nausea. Patient admits to feeling nasal congestion lately. Patient denies fevers, chills, chest pain, shortness of breath, abdominal pain. Patient denies pain at this time. Patient reports her wound vac was changed this morning by surgical team. 500 cc observed in NGT suction. Objective - Vital Signs/Intake and Output Vital Signs (last 24 hours): Temp Pulse Resp BP Pulse Ox 98.4 F 90 20 113/78 97 07/12/18 15:00 07/12/18 15:00 07/12/18 15:00 07/12/18 15:00 07/12/18 15:00 Intake and Output: 07/12/18 07/12/18 06:59 18:59 Intake Total 500 274 Output Total 425 1050 Balance 75 -776 - Medications Medications: Current Medications Acetaminophen (Tylenol 650mg/20.3ml Solution Ud) 975 mg GT Q8H PRN PRN Reason: Pain, Mild (1-3) Last Admin: 07/10/18 18:30 Dose: 975 mg Benzocaine/Menthol (Cepacol Sore Throat) 1 sravan MT Q2H PRN PRN Reason: Sore Throat Last Admin: 07/11/18 19:34 Dose: 1 sravan Calcium Acetate (Phoslo) 667 mg GT TIDCC [facility] Last Admin: 07/12/18 12:28 Dose: 667 mg Cholestyramine Resin (Questran) 4 gm PO BID [facility] Last Admin: 07/12/18 09:55 Dose: 4 gm Dextrose (Dextrose 50% Inj) 0 ml IV STAT PRN; Protocol PRN Reason: Hypoglycemia Protocol Last Admin: 07/10/18 18:22 Dose: 25 ml Dextrose (Glutose 15) 0 gm PO ONCE PRN; Protocol PRN Reason: Hypoglycemia Protocol Enoxaparin Sodium (Lovenox) 40 mg SC DAILY [facility] Last Admin: 07/12/18 09:54 Dose: 40 mg Ergocalciferol (Drisdol 50,000 Intl Units Cap) 1 cap PO Q7D [facility] Stop: 07/20/18 10:01 Last Admin: 07/06/18 13:12 Dose: 1 cap Escitalopram Oxalate (Lexapro) 10 mg GT DAILY [facility] Last Admin: 07/12/18 09:55 Dose: 10 mg Gentamicin Sulfate (Gentamicin 0.1%) 0 gm TOP TID [facility] Last Admin: 07/12/18 09:54 Dose: 1 oin Glucagon (Glucagen Diagnostic Kit) 0 mg IM STAT PRN; Protocol PRN Reason: Hypoglycemia Protocol Guaifenesin (Robitussin) 100 mg PO Q4H PRN PRN Reason: Cough Last Admin: 07/12/18 09:55 Dose: 100 mg Hydromorphone HCl (Dilaudid) 1 mg IVP Q3 PRN PRN Reason: Pain, SEVERE (8-10) Last Admin: 07/12/18 16:05 Dose: 1 mg Insulin Human Regular (Novolin R) 0 unit SC [facility]; Protocol Last Admin: 07/12/18 11:49 Dose: Not Given Ipratropium [place] (Atrovent) 0.5 mg IH RQ6 [facility] Last Admin: 07/12/18 08:49 Dose: 0.5 mg Loperamide HCl (Imodium) 1 mg PO Q2H PRN PRN Reason: Diarrhea Last Admin: 07/12/18 09:55 Dose: 1 mg Lorazepam (Ativan) 1 mg IVP BID [facility] Last Admin: 07/12/18 09:54 Dose: 1 mg Metoprolol Tartrate (Lopressor) 12.5 mg PEG BID [facility] Last Admin: 07/12/18 09:55 Dose: 12.5 mg Nicotine (Nicoderm Cq) 1 patch TD DAILY [facility] Last Admin: 07/12/18 09:55 Dose: 1 patch Ondansetron HCl (Zofran Inj) 4 mg IVP Q6H PRN PRN Reason: Nausea/Vomiting Last Admin: 07/12/18 12:28 Dose: 4 mg Pantoprazole Sodium (Protonix Susp) 40 mg PO DAILY [facility] Last Admin: 07/12/18 09:55 Dose: 40 mg Saliva Substitute (Mouth Kote 236 Ml) 0 ml MM Q6 PRN PRN Reason: Dry mouth Vitamin A (Vitamin A & D Oint Ud Foilpak) 1 ea TOP Q8 PRN PRN Reason: dry lips Vitamin E (Vitamin E 400 Units Cap) 400 intlu GT DAILY [facility] Last Admin: 07/12/18 09:55 Dose: 400 intlu - Labs Labs: 07/12/18 07:41 07/12/18 07:41 PT 14.3 SECONDS (9.7-12.2) H 06/10/18 07:05 INR 1.3 06/10/18 07:05 APTT 33 SECONDS (21-34) 05/25/18 06:16 - Constitutional Appears: Non-toxic, No Acute Distress, Chronically Ill - Head Exam Head Exam: ATRAUMATIC, NORMAL INSPECTION, NORMOCEPHALIC - Eye Exam Eye Exam: EOMI, Normal appearance - ENT Exam ENT Exam: Mucous Membranes Moist Additional comments: NGT observed in place - Respiratory Exam Respiratory Exam: Clear to Ausculation Bilateral, NORMAL BREATHING PATTERN. absent: Accessory Muscle Use, Rales, Rhonchi, Wheezes, Respiratory Distress - Cardiovascular Exam Cardiovascular Exam: REGULAR RHYTHM, +S1, +S2 - GI/Abdominal Exam GI & Abdominal Exam: Soft, Normal Bowel Sounds. absent: Distended, Guarding, Tenderness Additional comments: wound vac place over midline abdomen, gastrostomy tube in place, clean/dry/intact - Extremities Exam Extremities Exam: Full ROM, Normal Inspection. absent: Calf Tenderness, Tenderness - Back Exam Back Exam: Full ROM, NORMAL INSPECTION - Neurological Exam Neurological Exam: Alert, Awake, Oriented x3 - Psychiatric Exam Psychiatric exam: Normal Affect, Normal Mood - Skin Skin Exam: Dry, Intact, Normal Color, Warm Assessment and Plan - Assessment and Plan (Free Text) Plan: Ischemic bowel disease 2/2 internal hernia producing bowel obstruction Current drains include: NGT (intermittent suction per surgery recs) replaced on 07/09/18 by surgery team, gastrostomy tube (replaced 06/10/18) Latest wound cultures: -Abd incision, Peg incision site => Pseudomonas aeruginosa, sensitive to Meropenem -Per ID: Meropenem 1 g q 8 h (d/c 07/11), Vancomycin 1.5 g IVPB q 12 h (d/c on 07/05/18) -vanco trough 07/05 -- 15.1 Surgery (Dr. Harley) consulted - awaiting Dr Mccray's response on surgical intervention; f/u with surgical team regarding dispo Wound vac to continuous suction, to be replaced Q72hrs (last change was today 07/12) Heme/onc (Dr. Cash) consulted for Fe status - repeat ferritin 185, no need for iron infusion at this time, continue to monitor Other cultures: 06/22/18: abd incision => Pseudomonas aeruginosa sensitive to Meropenem 06/22/18: Peg site => Pseudomonas aeruginosa sensitive to Meropenem 05/14/18: Peritoneal fluid => Pseudomonas aeruginosa sensitive to Meropenem 05/23/18: Wound cx => Yudith albicans 05/15/18, 05/22/18: Blood cx => no growth 05/22/18: Urine cx => no growth 05/31/18: Incision site => Enterococcus faecalis, Acinetobacter baumannii 06/03/18: Stool cxs => No Salmonella, Shigella, or Campylobacter isolates 06/13/18: Repeat wound cx => Coag-neg Staph, Enterococcus raffinosus 07/12 WBC - 6.3 from previous 5.9 Patient is afebrile at 98.1F Antibiotics: Meropenem 1 g q 8 h IVPB discontinued as per Dr Rivera (07/11/2018) Vancomycin 1.5 g IV q 12 h (started 06/16 at 12 pm), discontinued as per Dr Rivera on 07/05 Cipro 400 mg IV q 12h d/c'd (started 06/02/18, last day 06/16/18) Flagyl 500 mg IVPB q 8 h completed (active from 05/15/18-06/19/18) Continue Gentamicin 0.1% TOP TID apply cream to peg tube site F/u vitamin levels and replace as needed: Vit D < 12.8, 56643 U q1 wk x 8 wks B12 707, wnl; repeat B12 508 Folate 12.6, wnl Vit A 42, wnl Alpha vit E 5.6, wnl Vit A, B1, B6, E levels reordered on 06/15 Vit B1: inappropriately submitted, 06/01/18 valve acceptable Vit B6: 5.9, wnl Vit A, E collected Repeat Vitamin levels ordered on 07/08, f/u results 07/08: Pre-albumin 11.6, B12 508, 25-OH vit D < 12.8 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 Diff (05/22, 05/24, 05/28) neg Stool ova and parasites (05/25/18) neg Stool leukocytes (05/25/18) neg Flagyl course finished Imodium 1 mg PO q 2h prn Anxiety [employer] consulted - pt refusing at this time Psych consulted (Dr. Reyez) - managing Ativan, c/w prn Lexapro 10 mg GT daily (started 05/31) Insomnia - Benadryl d/c'd, clinically not indicated Anemia, acute, stable, pt denies blood in stool Total 2 PRBC (on 05/16) and 4 FFP (on 05/15 and 05/16) 07/10 hb 9.3, hct: 28.7 Iron 16, TIBC 205, % sat 4.7, repeat ferritin 185 after Ferrlecit Monitor CBC q2d Per Dr. Cash, consider Procrit supplementation in attempt to avoid further transfusions if Hgb < 9 Thrombocytosis - suspect reactive to pain, surgery; resolved 07/12 platelets: 309 Monitor CBC q2d DM2, controlled From prior note: admittedly non-compliant, has not taken Januvia for 1 y Accuchecks q6h Hypoglycemic protocol ISS regular HgbA1c 5.8 Hx gastric bypass surgery Hypercholesterolemia, untx LDL < 30, HDL < 23, Chol 59, TG 195 (06/03/18) Hx gastric bypass surgery Questran 4 g PO bid Hx HTN, controlled Since gastric bypass has not taken meds Metoprolol 12.5 mg bid Hx Asthma - Chronic Continue to monitor Atrovent prn C/o productive cough on and off today, Robitussin prn, defer steroids at this time due to concern for wound healing s/p surgical procedures Nicotine use disorder - Chronic From prior note: 1 ppd x 20 y, 1/2 ppd x 3 y C/w Nicoderm patch Electrolyte imbalance - Hypokalemia, Hypomagnesemia; improving F/u am labs, replete as needed Mg 1.8 on 07/12, K 3.9 PPX, Diet, Dispo Hydrocortisone 1% cream top tid for R upper inner arm macular rash - improved Vitamin A+D top q 8h prn for dry lips Saliva substitute q 6 h prn for dry mouth IVF not indicated at this time VTE ppx: Lovenox 40 subQ d, SCDs, encourage ambulation GI ppx: Protonix 40 mg IV bid, Florastor bid Code status: Full code Continue PT services, follow up recs Dispo: Continue to optimize patient for reversal surgery. Dr. Harley to c oordinate with Dr. Mccray plan for intervention. Pt to remain inpatient until reversal procedure performed by surgical team. Plan discussed with Dr Mirta Banegas, PGY-1 <Wesley Kirby - Last Filed: 08/04/18 13:40> Attending/Attestation - Attestation I have personally seen and examined this patient.: Yes I have fully participated in the care of the patient.: Yes I have reviewed all pertinent clinical information, including history, physical exam and plan: Yes Notes (Text): Ischemic bowel disease 2/2 internal hernia producing bowel obstruction Chronic pain syndrome Diarrhea awaiting final decision re surgery to connect stomach with bowel based on nutritional status to be determined by surgery
--- NOTE | 2018-07-12 19:11 | CP.PCM.PN ---
Subjective - Date & Time of Evaluation Date of Evaluation: 07/12/18 Time of Evaluation: 16:00 - Subjective Subjective: Progress note for Dr. Harley Late entry--patient evaluated this afternoon Patient seen and examined at bedside this AM. No adverse events, patient states that she has minimal pain, no fevers, no chills, no nausea or vomiting. Wound vac changed at bedside today with no complications Objective - Vital Signs/Intake and Output Vital Signs (last 24 hours): Temp Pulse Resp BP Pulse Ox 98.4 F 90 20 113/78 97 07/12/18 15:00 07/12/18 15:00 07/12/18 15:00 07/12/18 15:00 07/12/18 15:00 Intake and Output: 07/12/18 07/13/18 18:59 06:59 Intake Total 274 Output Total 1050 Balance -776 - Medications Medications: Current Medications Acetaminophen (Tylenol 650mg/20.3ml Solution Ud) 975 mg GT Q8H PRN PRN Reason: Pain, Mild (1-3) Last Admin: 07/10/18 18:30 Dose: 975 mg Benzocaine/Menthol (Cepacol Sore Throat) 1 sravan MT Q2H PRN PRN Reason: Sore Throat Last Admin: 07/11/18 19:34 Dose: 1 sravan Calcium Acetate (Phoslo) 667 mg GT TIDCC [facility] Last Admin: 07/12/18 18:38 Dose: 667 mg Cholestyramine Resin (Questran) 4 gm PO BID [facility] Last Admin: 07/12/18 18:38 Dose: 4 gm Dextrose (Dextrose 50% Inj) 0 ml IV STAT PRN; Protocol PRN Reason: Hypoglycemia Protocol Last Admin: 07/10/18 18:22 Dose: 25 ml Dextrose (Glutose 15) 0 gm PO ONCE PRN; Protocol PRN Reason: Hypoglycemia Protocol Enoxaparin Sodium (Lovenox) 40 mg SC DAILY [facility] Last Admin: 07/12/18 09:54 Dose: 40 mg Ergocalciferol (Drisdol 50,000 Intl Units Cap) 1 cap PO Q7D [facility] Stop: 07/20/18 10:01 Last Admin: 07/06/18 13:12 Dose: 1 cap Escitalopram Oxalate (Lexapro) 10 mg GT DAILY [facility] Last Admin: 07/12/18 09:55 Dose: 10 mg Gentamicin Sulfate (Gentamicin 0.1%) 0 gm TOP TID [facility] Last Admin: 07/12/18 18:47 Dose: 1 oin Glucagon (Glucagen Diagnostic Kit) 0 mg IM STAT PRN; Protocol PRN Reason: Hypoglycemia Protocol Guaifenesin (Robitussin) 100 mg PO Q4H PRN PRN Reason: Cough Last Admin: 07/12/18 18:44 Dose: 100 mg Hydromorphone HCl (Dilaudid) 1 mg IVP Q3 PRN PRN Reason: Pain, SEVERE (8-10) Last Admin: 07/12/18 16:05 Dose: 1 mg Insulin Human Regular (Novolin R) 0 unit SC ACHS [facility]; Protocol Last Admin: 07/12/18 18:59 Dose: Not Given Ipratropium [place] (Atrovent) 0.5 mg IH RQ6 [facility] Last Admin: 07/12/18 08:49 Dose: 0.5 mg Loperamide HCl (Imodium) 1 mg PO Q2H PRN PRN Reason: Diarrhea Last Admin: 07/12/18 18:44 Dose: 1 mg Lorazepam (Ativan) 1 mg IVP BID [facility] Last Admin: 07/12/18 18:38 Dose: 1 mg Metoprolol Tartrate (Lopressor) 12.5 mg PEG BID [facility] Last Admin: 07/12/18 18:38 Dose: 12.5 mg Nicotine (Nicoderm Cq) 1 patch TD DAILY [facility] Last Admin: 07/12/18 09:55 Dose: 1 patch Ondansetron HCl (Zofran Inj) 4 mg IVP Q6H PRN PRN Reason: Nausea/Vomiting Last Admin: 07/12/18 12:28 Dose: 4 mg Pantoprazole Sodium (Protonix Susp) 40 mg PO DAILY [facility] Last Admin: 07/12/18 09:55 Dose: 40 mg Saliva Substitute (Mouth Kote 236 Ml) 0 ml MM Q6 PRN PRN Reason: Dry mouth Vitamin A (Vitamin A & D Oint Ud Foilpak) 1 ea TOP Q8 PRN PRN Reason: dry lips Vitamin E (Vitamin E 400 Units Cap) 400 intlu GT DAILY [facility] Last Admin: 07/12/18 09:55 Dose: 400 intlu - Labs Labs: 07/12/18 07:41 07/12/18 07:41 PT 14.3 SECONDS (9.7-12.2) H 06/10/18 07:05 INR 1.3 06/10/18 07:05 APTT 33 SECONDS (21-34) 05/25/18 06:16 - Constitutional Appears: Well, Non-toxic, No Acute Distress - Head Exam Head Exam: ATRAUMATIC, NORMOCEPHALIC - Eye Exam Eye Exam: Normal appearance. absent: Conjunctival injection, Scleral icterus - ENT Exam ENT Exam: Mucous Membranes Moist, Normal Exam - Respiratory Exam Respiratory Exam: NORMAL BREATHING PATTERN. absent: Accessory Muscle Use, Respiratory Distress - Cardiovascular Exam Cardiovascular Exam: RRR - GI/Abdominal Exam GI & Abdominal Exam: Soft. absent: Distended, Tenderness Additional comments: wound vac in place with good suction, no leaks, no erythema - Extremities Exam Extremities Exam: absent: Calf Tenderness, Pedal Edema, Tenderness - Neurological Exam Neurological Exam: Alert, Awake - Psychiatric Exam Psychiatric exam: Normal Affect, Normal Mood - Skin Skin Exam: Dry, Normal Color, Warm Assessment and Plan - Assessment and Plan (Free Text) Assessment: 38F w/bowel ischemic 2/2 internal hernia POD#58 s/p ex lap, reduction of internal hernia, DANNI, drainage of abdominal collections, temporary abdominal closure & EGD POD#54 s/p re-exploration, resection of ileum & Binta limb including previous gastrojejunostomy, reversal of bypass, primary anastomosis of ileum-ileum, ileum-ileum, and ileum-jejunum. Gastrostomy tube in bypassed stomach, EGD Wound vac in place over draining midline incision Plan: Wound vac changed at bedside with no complications, continue wound vac to continuous suction Continue current medical management Continue tube feedings Encourage ambulation Discussed with Dr. Cricket Mo, PGY2
--- NOTE | 2018-07-12 19:33 | CP.PCM.PN ---
Subjective - Date & Time of Evaluation Date of Evaluation: 07/09/18 Time of Evaluation: 19:00 - Subjective Subjective: No complaints. Objective - Vital Signs/Intake and Output Vital Signs (last 24 hours): Temp Pulse Resp BP Pulse Ox 98.4 F 90 20 113/78 97 07/12/18 15:00 07/12/18 15:00 07/12/18 15:00 07/12/18 15:00 07/12/18 15:00 Intake and Output: 07/12/18 07/13/18 18:59 06:59 Intake Total 274 Output Total 1050 Balance -776 - Medications Medications: Current Medications Acetaminophen (Tylenol 650mg/20.3ml Solution Ud) 975 mg GT Q8H PRN PRN Reason: Pain, Mild (1-3) Last Admin: 07/10/18 18:30 Dose: 975 mg Benzocaine/Menthol (Cepacol Sore Throat) 1 sravan MT Q2H PRN PRN Reason: Sore Throat Last Admin: 07/11/18 19:34 Dose: 1 sravan Calcium Acetate (Phoslo) 667 mg GT TIDCC [facility] Last Admin: 07/12/18 18:38 Dose: 667 mg Cholestyramine Resin (Questran) 4 gm PO BID [facility] Last Admin: 07/12/18 18:38 Dose: 4 gm Dextrose (Dextrose 50% Inj) 0 ml IV STAT PRN; Protocol PRN Reason: Hypoglycemia Protocol Last Admin: 07/10/18 18:22 Dose: 25 ml Dextrose (Glutose 15) 0 gm PO ONCE PRN; Protocol PRN Reason: Hypoglycemia Protocol Enoxaparin Sodium (Lovenox) 40 mg SC DAILY [facility] Last Admin: 07/12/18 09:54 Dose: 40 mg Ergocalciferol (Drisdol 50,000 Intl Units Cap) 1 cap PO Q7D [facility] Stop: 07/20/18 10:01 Last Admin: 07/06/18 13:12 Dose: 1 cap Escitalopram Oxalate (Lexapro) 10 mg GT DAILY [facility] Last Admin: 07/12/18 09:55 Dose: 10 mg Gentamicin Sulfate (Gentamicin 0.1%) 0 gm TOP TID [facility] Last Admin: 07/12/18 18:47 Dose: 1 oin Glucagon (Glucagen Diagnostic Kit) 0 mg IM STAT PRN; Protocol PRN Reason: Hypoglycemia Protocol Guaifenesin (Robitussin) 100 mg PO Q4H PRN PRN Reason: Cough Last Admin: 07/12/18 18:44 Dose: 100 mg Hydromorphone HCl (Dilaudid) 1 mg IVP Q3 PRN PRN Reason: Pain, SEVERE (8-10) Last Admin: 07/12/18 19:12 Dose: 1 mg Insulin Human Regular (Novolin R) 0 unit SC ACHS [facility]; Protocol Last Admin: 07/12/18 18:59 Dose: Not Given Ipratropium [place] (Atrovent) 0.5 mg IH RQ6 [facility] Last Admin: 07/12/18 08:49 Dose: 0.5 mg Loperamide HCl (Imodium) 1 mg PO Q2H PRN PRN Reason: Diarrhea Last Admin: 07/12/18 18:44 Dose: 1 mg Lorazepam (Ativan) 1 mg IVP BID [facility] Last Admin: 07/12/18 18:38 Dose: 1 mg Metoprolol Tartrate (Lopressor) 12.5 mg PEG BID [facility] Last Admin: 07/12/18 18:38 Dose: 12.5 mg Nicotine (Nicoderm Cq) 1 patch TD DAILY [facility] Last Admin: 07/12/18 09:55 Dose: 1 patch Ondansetron HCl (Zofran Inj) 4 mg IVP Q6H PRN PRN Reason: Nausea/Vomiting Last Admin: 07/12/18 12:28 Dose: 4 mg Pantoprazole Sodium (Protonix Susp) 40 mg PO DAILY [facility] Last Admin: 07/12/18 09:55 Dose: 40 mg Saliva Substitute (Mouth Kote 236 Ml) 0 ml MM Q6 PRN PRN Reason: Dry mouth Vitamin A (Vitamin A & D Oint Ud Foilpak) 1 ea TOP Q8 PRN PRN Reason: dry lips Vitamin E (Vitamin E 400 Units Cap) 400 intlu GT DAILY [facility] Last Admin: 07/12/18 09:55 Dose: 400 intlu - Labs Labs: 07/12/18 07:41 07/12/18 07:41 PT 14.3 SECONDS (9.7-12.2) H 06/10/18 07:05 INR 1.3 06/10/18 07:05 APTT 33 SECONDS (21-34) 05/25/18 06:16 - Head Exam Head Exam: ATRAUMATIC - Eye Exam Eye Exam: Normal appearance - ENT Exam ENT Exam: Mucous Membranes Dry - Respiratory Exam Respiratory Exam: NORMAL BREATHING PATTERN - Cardiovascular Exam Cardiovascular Exam: +S1, +S2 - GI/Abdominal Exam GI & Abdominal Exam: Normal Bowel Sounds - Extremities Exam Extremities Exam: Normal Inspection Assessment and Plan (1) Anemia Assessment & Plan: iron deficiency anemia resolved s/p IV iron anemia of chronic disease; will consider Procrit supplementation in an attempt to avoid further transfusions if hgb < 9 FOBT positive transfuse PRN Status: Acute
--- NOTE | 2018-07-12 19:34 | CP.PCM.PN ---
Subjective - Date & Time of Evaluation Date of Evaluation: 07/10/18 Time of Evaluation: 12:00 - Subjective Subjective: No complaints. Objective - Vital Signs/Intake and Output Vital Signs (last 24 hours): Temp Pulse Resp BP Pulse Ox 98.4 F 90 20 113/78 97 07/12/18 15:00 07/12/18 15:00 07/12/18 15:00 07/12/18 15:00 07/12/18 15:00 Intake and Output: 07/12/18 07/13/18 18:59 06:59 Intake Total 274 Output Total 1050 Balance -776 - Medications Medications: Current Medications Acetaminophen (Tylenol 650mg/20.3ml Solution Ud) 975 mg GT Q8H PRN PRN Reason: Pain, Mild (1-3) Last Admin: 07/10/18 18:30 Dose: 975 mg Benzocaine/Menthol (Cepacol Sore Throat) 1 sravan MT Q2H PRN PRN Reason: Sore Throat Last Admin: 07/11/18 19:34 Dose: 1 sravan Calcium Acetate (Phoslo) 667 mg GT TIDCC [facility] Last Admin: 07/12/18 18:38 Dose: 667 mg Cholestyramine Resin (Questran) 4 gm PO BID [facility] Last Admin: 07/12/18 18:38 Dose: 4 gm Dextrose (Dextrose 50% Inj) 0 ml IV STAT PRN; Protocol PRN Reason: Hypoglycemia Protocol Last Admin: 07/10/18 18:22 Dose: 25 ml Dextrose (Glutose 15) 0 gm PO ONCE PRN; Protocol PRN Reason: Hypoglycemia Protocol Enoxaparin Sodium (Lovenox) 40 mg SC DAILY [facility] Last Admin: 07/12/18 09:54 Dose: 40 mg Ergocalciferol (Drisdol 50,000 Intl Units Cap) 1 cap PO Q7D [facility] Stop: 07/20/18 10:01 Last Admin: 07/06/18 13:12 Dose: 1 cap Escitalopram Oxalate (Lexapro) 10 mg GT DAILY [facility] Last Admin: 07/12/18 09:55 Dose: 10 mg Gentamicin Sulfate (Gentamicin 0.1%) 0 gm TOP TID [facility] Last Admin: 07/12/18 18:47 Dose: 1 oin Glucagon (Glucagen Diagnostic Kit) 0 mg IM STAT PRN; Protocol PRN Reason: Hypoglycemia Protocol Guaifenesin (Robitussin) 100 mg PO Q4H PRN PRN Reason: Cough Last Admin: 07/12/18 18:44 Dose: 100 mg Hydromorphone HCl (Dilaudid) 1 mg IVP Q3 PRN PRN Reason: Pain, SEVERE (8-10) Last Admin: 07/12/18 19:12 Dose: 1 mg Insulin Human Regular (Novolin R) 0 unit SC ACHS [facility]; Protocol Last Admin: 07/12/18 18:59 Dose: Not Given Ipratropium [place] (Atrovent) 0.5 mg IH RQ6 [facility] Last Admin: 07/12/18 08:49 Dose: 0.5 mg Loperamide HCl (Imodium) 1 mg PO Q2H PRN PRN Reason: Diarrhea Last Admin: 07/12/18 18:44 Dose: 1 mg Lorazepam (Ativan) 1 mg IVP BID [facility] Last Admin: 07/12/18 18:38 Dose: 1 mg Metoprolol Tartrate (Lopressor) 12.5 mg PEG BID [facility] Last Admin: 07/12/18 18:38 Dose: 12.5 mg Nicotine (Nicoderm Cq) 1 patch TD DAILY [facility] Last Admin: 07/12/18 09:55 Dose: 1 patch Ondansetron HCl (Zofran Inj) 4 mg IVP Q6H PRN PRN Reason: Nausea/Vomiting Last Admin: 07/12/18 12:28 Dose: 4 mg Pantoprazole Sodium (Protonix Susp) 40 mg PO DAILY [facility] Last Admin: 07/12/18 09:55 Dose: 40 mg Saliva Substitute (Mouth Kote 236 Ml) 0 ml MM Q6 PRN PRN Reason: Dry mouth Vitamin A (Vitamin A & D Oint Ud Foilpak) 1 ea TOP Q8 PRN PRN Reason: dry lips Vitamin E (Vitamin E 400 Units Cap) 400 intlu GT DAILY [facility] Last Admin: 07/12/18 09:55 Dose: 400 intlu - Labs Labs: 07/12/18 07:41 07/12/18 07:41 PT 14.3 SECONDS (9.7-12.2) H 06/10/18 07:05 INR 1.3 06/10/18 07:05 APTT 33 SECONDS (21-34) 05/25/18 06:16 - Head Exam Head Exam: ATRAUMATIC - Eye Exam Eye Exam: Normal appearance - ENT Exam ENT Exam: Mucous Membranes Dry - Respiratory Exam Respiratory Exam: NORMAL BREATHING PATTERN - Cardiovascular Exam Cardiovascular Exam: +S1, +S2 - GI/Abdominal Exam GI & Abdominal Exam: Normal Bowel Sounds Assessment and Plan (1) Anemia Assessment & Plan: iron deficiency anemia resolved s/p IV iron anemia of chronic disease; will consider Procrit supplementation in an attempt to avoid further transfusions if hgb < 9 FOBT positive transfuse PRN Status: Acute
--- NOTE | 2018-07-12 19:35 | CP.PCM.PN ---
Subjective - Date & Time of Evaluation Date of Evaluation: 07/11/18 Time of Evaluation: 19:00 - Subjective Subjective: No complaints. Objective - Vital Signs/Intake and Output Vital Signs (last 24 hours): Temp Pulse Resp BP Pulse Ox 98.4 F 90 20 113/78 97 07/12/18 15:00 07/12/18 15:00 07/12/18 15:00 07/12/18 15:00 07/12/18 15:00 Intake and Output: 07/12/18 07/13/18 18:59 06:59 Intake Total 274 Output Total 1050 Balance -776 - Medications Medications: Current Medications Acetaminophen (Tylenol 650mg/20.3ml Solution Ud) 975 mg GT Q8H PRN PRN Reason: Pain, Mild (1-3) Last Admin: 07/10/18 18:30 Dose: 975 mg Benzocaine/Menthol (Cepacol Sore Throat) 1 sravan MT Q2H PRN PRN Reason: Sore Throat Last Admin: 07/11/18 19:34 Dose: 1 sravan Calcium Acetate (Phoslo) 667 mg GT TIDCC [facility] Last Admin: 07/12/18 18:38 Dose: 667 mg Cholestyramine Resin (Questran) 4 gm PO BID [facility] Last Admin: 07/12/18 18:38 Dose: 4 gm Dextrose (Dextrose 50% Inj) 0 ml IV STAT PRN; Protocol PRN Reason: Hypoglycemia Protocol Last Admin: 07/10/18 18:22 Dose: 25 ml Dextrose (Glutose 15) 0 gm PO ONCE PRN; Protocol PRN Reason: Hypoglycemia Protocol Enoxaparin Sodium (Lovenox) 40 mg SC DAILY [facility] Last Admin: 07/12/18 09:54 Dose: 40 mg Ergocalciferol (Drisdol 50,000 Intl Units Cap) 1 cap PO Q7D [facility] Stop: 07/20/18 10:01 Last Admin: 07/06/18 13:12 Dose: 1 cap Escitalopram Oxalate (Lexapro) 10 mg GT DAILY [facility] Last Admin: 07/12/18 09:55 Dose: 10 mg Gentamicin Sulfate (Gentamicin 0.1%) 0 gm TOP TID [facility] Last Admin: 07/12/18 18:47 Dose: 1 oin Glucagon (Glucagen Diagnostic Kit) 0 mg IM STAT PRN; Protocol PRN Reason: Hypoglycemia Protocol Guaifenesin (Robitussin) 100 mg PO Q4H PRN PRN Reason: Cough Last Admin: 07/12/18 18:44 Dose: 100 mg Hydromorphone HCl (Dilaudid) 1 mg IVP Q3 PRN PRN Reason: Pain, SEVERE (8-10) Last Admin: 07/12/18 19:12 Dose: 1 mg Insulin Human Regular (Novolin R) 0 unit SC ACHS [facility]; Protocol Last Admin: 07/12/18 18:59 Dose: Not Given Ipratropium [place] (Atrovent) 0.5 mg IH RQ6 [facility] Last Admin: 07/12/18 08:49 Dose: 0.5 mg Loperamide HCl (Imodium) 1 mg PO Q2H PRN PRN Reason: Diarrhea Last Admin: 07/12/18 18:44 Dose: 1 mg Lorazepam (Ativan) 1 mg IVP BID [facility] Last Admin: 07/12/18 18:38 Dose: 1 mg Metoprolol Tartrate (Lopressor) 12.5 mg PEG BID [facility] Last Admin: 07/12/18 18:38 Dose: 12.5 mg Nicotine (Nicoderm Cq) 1 patch TD DAILY [facility] Last Admin: 07/12/18 09:55 Dose: 1 patch Ondansetron HCl (Zofran Inj) 4 mg IVP Q6H PRN PRN Reason: Nausea/Vomiting Last Admin: 07/12/18 12:28 Dose: 4 mg Pantoprazole Sodium (Protonix Susp) 40 mg PO DAILY [facility] Last Admin: 07/12/18 09:55 Dose: 40 mg Saliva Substitute (Mouth Kote 236 Ml) 0 ml MM Q6 PRN PRN Reason: Dry mouth Vitamin A (Vitamin A & D Oint Ud Foilpak) 1 ea TOP Q8 PRN PRN Reason: dry lips Vitamin E (Vitamin E 400 Units Cap) 400 intlu GT DAILY [facility] Last Admin: 07/12/18 09:55 Dose: 400 intlu - Labs Labs: 07/12/18 07:41 07/12/18 07:41 PT 14.3 SECONDS (9.7-12.2) H 06/10/18 07:05 INR 1.3 06/10/18 07:05 APTT 33 SECONDS (21-34) 05/25/18 06:16 - Head Exam Head Exam: ATRAUMATIC - Eye Exam Eye Exam: Normal appearance - ENT Exam ENT Exam: Mucous Membranes Dry - Respiratory Exam Respiratory Exam: NORMAL BREATHING PATTERN - Cardiovascular Exam Cardiovascular Exam: +S1, +S2 - GI/Abdominal Exam GI & Abdominal Exam: Normal Bowel Sounds Assessment and Plan (1) Anemia Assessment & Plan: iron deficiency anemia resolved s/p IV iron anemia of chronic disease; will consider Procrit supplementation in an attempt to avoid further transfusions if hgb < 9 FOBT positive transfuse PRN Status: Acute
--- NOTE | 2018-07-12 19:35 | CP.PCM.PN ---
Subjective - Date & Time of Evaluation Date of Evaluation: 07/12/18 Time of Evaluation: 15:00 - Subjective Subjective: No complaints. Objective - Vital Signs/Intake and Output Vital Signs (last 24 hours): Temp Pulse Resp BP Pulse Ox 98.4 F 90 20 113/78 97 07/12/18 15:00 07/12/18 15:00 07/12/18 15:00 07/12/18 15:00 07/12/18 15:00 Intake and Output: 07/12/18 07/13/18 18:59 06:59 Intake Total 274 Output Total 1050 Balance -776 - Medications Medications: Current Medications Acetaminophen (Tylenol 650mg/20.3ml Solution Ud) 975 mg GT Q8H PRN PRN Reason: Pain, Mild (1-3) Last Admin: 07/10/18 18:30 Dose: 975 mg Benzocaine/Menthol (Cepacol Sore Throat) 1 sravan MT Q2H PRN PRN Reason: Sore Throat Last Admin: 07/11/18 19:34 Dose: 1 sravan Calcium Acetate (Phoslo) 667 mg GT TIDCC [facility] Last Admin: 07/12/18 18:38 Dose: 667 mg Cholestyramine Resin (Questran) 4 gm PO BID [facility] Last Admin: 07/12/18 18:38 Dose: 4 gm Dextrose (Dextrose 50% Inj) 0 ml IV STAT PRN; Protocol PRN Reason: Hypoglycemia Protocol Last Admin: 07/10/18 18:22 Dose: 25 ml Dextrose (Glutose 15) 0 gm PO ONCE PRN; Protocol PRN Reason: Hypoglycemia Protocol Enoxaparin Sodium (Lovenox) 40 mg SC DAILY [facility] Last Admin: 07/12/18 09:54 Dose: 40 mg Ergocalciferol (Drisdol 50,000 Intl Units Cap) 1 cap PO Q7D [facility] Stop: 07/20/18 10:01 Last Admin: 07/06/18 13:12 Dose: 1 cap Escitalopram Oxalate (Lexapro) 10 mg GT DAILY [facility] Last Admin: 07/12/18 09:55 Dose: 10 mg Gentamicin Sulfate (Gentamicin 0.1%) 0 gm TOP TID [facility] Last Admin: 07/12/18 18:47 Dose: 1 oin Glucagon (Glucagen Diagnostic Kit) 0 mg IM STAT PRN; Protocol PRN Reason: Hypoglycemia Protocol Guaifenesin (Robitussin) 100 mg PO Q4H PRN PRN Reason: Cough Last Admin: 07/12/18 18:44 Dose: 100 mg Hydromorphone HCl (Dilaudid) 1 mg IVP Q3 PRN PRN Reason: Pain, SEVERE (8-10) Last Admin: 07/12/18 19:12 Dose: 1 mg Insulin Human Regular (Novolin R) 0 unit SC ACHS [facility]; Protocol Last Admin: 07/12/18 18:59 Dose: Not Given Ipratropium [place] (Atrovent) 0.5 mg IH RQ6 [facility] Last Admin: 07/12/18 08:49 Dose: 0.5 mg Loperamide HCl (Imodium) 1 mg PO Q2H PRN PRN Reason: Diarrhea Last Admin: 07/12/18 18:44 Dose: 1 mg Lorazepam (Ativan) 1 mg IVP BID [facility] Last Admin: 07/12/18 18:38 Dose: 1 mg Metoprolol Tartrate (Lopressor) 12.5 mg PEG BID [facility] Last Admin: 07/12/18 18:38 Dose: 12.5 mg Nicotine (Nicoderm Cq) 1 patch TD DAILY [facility] Last Admin: 07/12/18 09:55 Dose: 1 patch Ondansetron HCl (Zofran Inj) 4 mg IVP Q6H PRN PRN Reason: Nausea/Vomiting Last Admin: 07/12/18 12:28 Dose: 4 mg Pantoprazole Sodium (Protonix Susp) 40 mg PO DAILY [facility] Last Admin: 07/12/18 09:55 Dose: 40 mg Saliva Substitute (Mouth Kote 236 Ml) 0 ml MM Q6 PRN PRN Reason: Dry mouth Vitamin A (Vitamin A & D Oint Ud Foilpak) 1 ea TOP Q8 PRN PRN Reason: dry lips Vitamin E (Vitamin E 400 Units Cap) 400 intlu GT DAILY [facility] Last Admin: 07/12/18 09:55 Dose: 400 intlu - Labs Labs: 07/12/18 07:41 07/12/18 07:41 PT 14.3 SECONDS (9.7-12.2) H 06/10/18 07:05 INR 1.3 06/10/18 07:05 APTT 33 SECONDS (21-34) 05/25/18 06:16 - Head Exam Head Exam: ATRAUMATIC - Eye Exam Eye Exam: Normal appearance - ENT Exam ENT Exam: Mucous Membranes Dry - Respiratory Exam Respiratory Exam: NORMAL BREATHING PATTERN - Cardiovascular Exam Cardiovascular Exam: +S1, +S2 - GI/Abdominal Exam GI & Abdominal Exam: Normal Bowel Sounds Assessment and Plan (1) Anemia Assessment & Plan: iron deficiency anemia resolved s/p IV iron anemia of chronic disease; will consider Procrit supplementation in an attempt to avoid further transfusions if hgb < 9 FOBT positive transfuse PRN Status: Acute
--- NOTE | 2018-07-12 22:19 | CP.PCM.PN ---
Subjective - Date & Time of Evaluation Date of Evaluation: 07/12/18 Time of Evaluation: 14:15 - Subjective Subjective: dictated Objective - Vital Signs/Intake and Output Vital Signs (last 24 hours): Temp Pulse Resp BP Pulse Ox 98.4 F 90 20 113/78 97 07/12/18 15:00 07/12/18 15:00 07/12/18 15:00 07/12/18 15:00 07/12/18 15:00 Intake and Output: 07/12/18 07/13/18 18:59 06:59 Intake Total 274 Output Total 1050 Balance -776 - Medications Medications: Current Medications Acetaminophen (Tylenol 650mg/20.3ml Solution Ud) 975 mg GT Q8H PRN PRN Reason: Pain, Mild (1-3) Last Admin: 07/10/18 18:30 Dose: 975 mg Benzocaine/Menthol (Cepacol Sore Throat) 1 sravan MT Q2H PRN PRN Reason: Sore Throat Last Admin: 07/11/18 19:34 Dose: 1 sravan Calcium Acetate (Phoslo) 667 mg GT TIDCC [facility] Last Admin: 07/12/18 18:38 Dose: 667 mg Cholestyramine Resin (Questran) 4 gm PO BID [facility] Last Admin: 07/12/18 18:38 Dose: 4 gm Dextrose (Dextrose 50% Inj) 0 ml IV STAT PRN; Protocol PRN Reason: Hypoglycemia Protocol Last Admin: 07/10/18 18:22 Dose: 25 ml Dextrose (Glutose 15) 0 gm PO ONCE PRN; Protocol PRN Reason: Hypoglycemia Protocol Enoxaparin Sodium (Lovenox) 40 mg SC DAILY [facility] Last Admin: 07/12/18 09:54 Dose: 40 mg Ergocalciferol (Drisdol 50,000 Intl Units Cap) 1 cap PO Q7D [facility] Stop: 07/20/18 10:01 Last Admin: 07/06/18 13:12 Dose: 1 cap Escitalopram Oxalate (Lexapro) 10 mg GT DAILY [facility] Last Admin: 07/12/18 09:55 Dose: 10 mg Gentamicin Sulfate (Gentamicin 0.1%) 0 gm TOP TID [facility] Last Admin: 07/12/18 18:47 Dose: 1 oin Glucagon (Glucagen Diagnostic Kit) 0 mg IM STAT PRN; Protocol PRN Reason: Hypoglycemia Protocol Guaifenesin (Robitussin) 100 mg PO Q4H PRN PRN Reason: Cough Last Admin: 07/12/18 18:44 Dose: 100 mg Hydromorphone HCl (Dilaudid) 1 mg IVP Q3 PRN PRN Reason: Pain, SEVERE (8-10) Last Admin: 07/12/18 19:12 Dose: 1 mg Insulin Human Regular (Novolin R) 0 unit SC ACHS [facility]; Protocol Last Admin: 07/12/18 21:00 Dose: Not Given Ipratropium [place] (Atrovent) 0.5 mg IH RQ6 [facility] Last Admin: 07/12/18 19:55 Dose: 0.5 mg Loperamide HCl (Imodium) 1 mg PO Q2H PRN PRN Reason: Diarrhea Last Admin: 07/12/18 18:44 Dose: 1 mg Lorazepam (Ativan) 1 mg IVP BID [facility] Last Admin: 07/12/18 18:38 Dose: 1 mg Metoprolol Tartrate (Lopressor) 12.5 mg PEG BID [facility] Last Admin: 07/12/18 18:38 Dose: 12.5 mg Nicotine (Nicoderm Cq) 1 patch TD DAILY [facility] Last Admin: 07/12/18 09:55 Dose: 1 patch Ondansetron HCl (Zofran Inj) 4 mg IVP Q6H PRN PRN Reason: Nausea/Vomiting Last Admin: 07/12/18 12:28 Dose: 4 mg Pantoprazole Sodium (Protonix Susp) 40 mg PO DAILY [facility] Last Admin: 07/12/18 09:55 Dose: 40 mg Saliva Substitute (Mouth Kote 236 Ml) 0 ml MM Q6 PRN PRN Reason: Dry mouth Vitamin A (Vitamin A & D Oint Ud Foilpak) 1 ea TOP Q8 PRN PRN Reason: dry lips Vitamin E (Vitamin E 400 Units Cap) 400 intlu GT DAILY [facility] Last Admin: 07/12/18 09:55 Dose: 400 intlu - Labs Labs: 07/12/18 07:41 07/12/18 07:41 PT 14.3 SECONDS (9.7-12.2) H 06/10/18 07:05 INR 1.3 06/10/18 07:05 APTT 33 SECONDS (21-34) 05/25/18 06:16
[2018-07-13] MEDS: Ipratropium 0.02% Inhal Soln (0.5 mg/2.5 ml) UD IH SCH ×4 (01:05→19:50)
--- NOTE | 2018-07-13 03:05 | PN ---
DATE: 07/12/2018 SUBJECTIVE: The patient is afebrile. I have discontinued the meropenem. PHYSICAL EXAMINATION: VITAL SIGNS: Stable. LUNGS: Clear. HEART: S1 and S2 are regular. ABDOMEN: Soft. Nontender. No guarding. No rigidity present. She has a jejunostomy tube. There is a wound VAC, but I had seen the wound. It was closing. Most of it had closed in the midline wound. EXTREMITIES: Have no edema. ASSESSMENT AND PLAN: She is awaiting for a final procedure. She was admitted here with ischemic bowel. She has a gastric bypass surgery in the past and had temporary abdominal closure. She needs reconstruction of her gastrointestinal tract. They are awaiting for final decision from the Surgery at this time to continue others. She is on Hyperal via peripherally inserted central catheter line. Need to be monitored for any fever or sepsis. I will take her back, let me see if she is getting any Hyperal. She is now only with total parenteral nutrition, not with Hyperal. She is not on any Hyperal but getting through the jejunostomy tube. Guero Rivera MD
[2018-07-13] MEDS: (Novolin R) Insulin Human Regular 100 units/ml vial SC SCH ×4 (07:37→22:00)
[2018-07-13] MEDS: Ergocalciferol 50,000 Intl Units Cap PO SCH (10:57)
[2018-07-13] MEDS: Enoxaparin 40 mg Syringe SC SCH (10:57)
[2018-07-13] MEDS: Pantoprazole 40 mg Susp UD PO SCH (10:57)
[2018-07-13] MEDS: Cholestyramine 4 gm/Pkt UD PO SCH ×2 (10:57→18:51)
[2018-07-13] MEDS: GENTAMICIN 0.1% TOP SCH ×3 (10:58→18:53)
[2018-07-13] MEDS: Benzocaine/Menthol (Cepacol) Lozenge MT PRN (11:11)
[2018-07-13] MEDS: Loperamide Hydrochloride 1 mg/5 ml Cup PO PRN ×2 (11:12→18:54)
[2018-07-13] MEDS: guaiFENesin 100 mg/5 ml Syrup UD PO PRN ×2 (11:12→18:52)
--- NOTE | 2018-07-13 13:26 | CP.PCM.PN ---
<Morris Connolly - Last Filed: 07/13/18 17:17> Subjective - Date & Time of Evaluation Date of Evaluation: 07/13/18 Time of Evaluation: 09:05 - Subjective Subjective: Medicine Progress Note for Hospitalist Service Pt seen and examined at bedside this am. Denies any acute complaints, resting comfortably at bedside. No acute events reported overnight. NGT intact, abd wound vac changed yesterday, repeat wound cx sent. Meropenem d/c'd as per ID on 07/11. 12-point ROS obtained, otherwise neg as per pt. Objective - Vital Signs/Intake and Output Vital Signs (last 24 hours): Temp Pulse Resp BP Pulse Ox 98.1 F 91 H 20 117/76 96 07/13/18 07:00 07/13/18 10:58 07/13/18 07:00 07/13/18 10:58 07/13/18 07:00 - Medications Medications: Current Medications Acetaminophen (Tylenol 650mg/20.3ml Solution Ud) 975 mg GT Q8H PRN PRN Reason: Pain, Mild (1-3) Last Admin: 07/10/18 18:30 Dose: 975 mg Benzocaine/Menthol (Cepacol Sore Throat) 1 sravan MT Q2H PRN PRN Reason: Sore Throat Last Admin: 07/13/18 11:11 Dose: 1 sravan Calcium Acetate (Phoslo) 667 mg GT TIDCC [facility] Last Admin: 07/13/18 11:11 Dose: 667 mg Cholestyramine Resin (Questran) 4 gm PO BID [facility] Last Admin: 07/13/18 10:57 Dose: 4 gm Dextrose (Dextrose 50% Inj) 0 ml IV STAT PRN; Protocol PRN Reason: Hypoglycemia Protocol Last Admin: 07/10/18 18:22 Dose: 25 ml Dextrose (Glutose 15) 0 gm PO ONCE PRN; Protocol PRN Reason: Hypoglycemia Protocol Enoxaparin Sodium (Lovenox) 40 mg SC DAILY [facility] Last Admin: 07/13/18 10:57 Dose: 40 mg Ergocalciferol (Drisdol 50,000 Intl Units Cap) 1 cap PO Q7D [facility] Stop: 07/20/18 10:01 Last Admin: 07/13/18 10:57 Dose: 1 cap Escitalopram Oxalate (Lexapro) 10 mg GT DAILY [facility] Last Admin: 07/13/18 10:57 Dose: 10 mg Gentamicin Sulfate (Gentamicin 0.1%) 0 gm TOP TID [facility] Last Admin: 07/13/18 10:58 Dose: 1 oin Glucagon (Glucagen Diagnostic Kit) 0 mg IM STAT PRN; Protocol PRN Reason: Hypoglycemia Protocol Guaifenesin (Robitussin) 100 mg PO Q4H PRN PRN Reason: Cough Last Admin: 07/13/18 11:12 Dose: 100 mg Hydromorphone HCl (Dilaudid) 1 mg IVP Q3 PRN PRN Reason: Pain, SEVERE (8-10) Last Admin: 07/13/18 11:29 Dose: 1 mg Insulin Human Regular (Novolin R) 0 unit SC ACHS [facility]; Protocol Last Admin: 07/13/18 11:28 Dose: Not Given Ipratropium [place] (Atrovent) 0.5 mg IH RQ6 [facility] Last Admin: 07/13/18 07:50 Dose: 0.5 mg Loperamide HCl (Imodium) 1 mg PO Q2H PRN PRN Reason: Diarrhea Last Admin: 07/13/18 11:12 Dose: 1 mg Loratadine (Claritin) 10 mg PO DAILY [facility] Lorazepam (Ativan) 1 mg IVP BID [facility] Last Admin: 07/13/18 10:57 Dose: 1 mg Metoprolol Tartrate (Lopressor) 12.5 mg PEG BID [facility] Last Admin: 07/13/18 10:57 Dose: 12.5 mg Nicotine (Nicoderm Cq) 1 patch TD DAILY [facility] Last Admin: 07/13/18 10:57 Dose: 1 patch Ondansetron HCl (Zofran Inj) 4 mg IVP Q6H PRN PRN Reason: Nausea/Vomiting Last Admin: 07/13/18 11:12 Dose: 4 mg Pantoprazole Sodium (Protonix Susp) 40 mg PO DAILY [facility] Last Admin: 07/13/18 10:57 Dose: 40 mg Saliva Substitute (Mouth Kote 236 Ml) 0 ml MM Q6 PRN PRN Reason: Dry mouth Vitamin A (Vitamin A & D Oint Ud Foilpak) 1 ea TOP Q8 PRN PRN Reason: dry lips Vitamin E (Vitamin E 400 Units Cap) 400 intlu GT DAILY [facility] Last Admin: 10/03/18 10:57 Dose: 400 intlu - Labs Labs: 07/12/18 07:41 07/12/18 07:41 PT 14.3 SECONDS (9.7-12.2) H 06/10/18 07:05 INR 1.3 06/10/18 07:05 APTT 33 SECONDS (21-34) 05/25/18 06:16 - Constitutional Appears: Non-toxic, No Acute Distress, Chronically Ill - Head Exam Head Exam: ATRAUMATIC, NORMOCEPHALIC - Eye Exam Eye Exam: EOMI, Normal appearance, PERRL - ENT Exam ENT Exam: Mucous Membranes Moist Additional comments: NGT intact, not dislodged - Respiratory Exam Respiratory Exam: Clear to Ausculation Bilateral, NORMAL BREATHING PATTERN. absent: Rales, Rhonchi - Cardiovascular Exam Cardiovascular Exam: REGULAR RHYTHM, +S1, +S2. absent: Gallop, Rubs, Murmur - GI/Abdominal Exam GI & Abdominal Exam: Soft, Normal Bowel Sounds. absent: Tenderness, Organomegaly, Rebound Additional comments: Abd wound vac and gastrostomy tube in place, c/d/i - Neurological Exam Neurological Exam: Alert, Awake, CN II-XII Intact, Normal Gait, Oriented x3 - Psychiatric Exam Psychiatric exam: Normal Affect, Normal Mood - Skin Skin Exam: Dry, Intact, Normal Color, Warm Assessment and Plan - Assessment and Plan (Free Text) Assessment: 38 y o female with PMHx HTN, HLD, DM2, asthma, s/p bowel resection (05/14/18, 05/16/18) 2/2 internal hernia s/p [id number] gastric bypass in 2013, admitted for medical optimization prior to reversal of bypass. Plan: Ischemic bowel disease 2/2 internal hernia producing bowel obstruction Current drains include: NGT (intermittent suction per surgery recs) replaced on 07/09/18 by surgery team, gastrostomy tube (replaced 06/10/18) Latest wound cultures: -Abd incision, Peg incision site => Pseudomonas aeruginosa, sensitive to Meropenem -Per ID: Meropenem 1 g q 8 h (d/c 07/11), Vancomycin 1.5 g IVPB q 12 h (d/c on 07/05/18) -vanco trough 07/05 -- 15.1 Surgery (Dr. Harley) consulted - awaiting Dr Mccray's response on surgical intervention; f/u with surgical team regarding dispo Wound vac to continuous suction, to be replaced Q72hrs (last change was today 07/12) Heme/onc (Dr. Cash) consulted for Fe status - repeat ferritin 185, no need for iron infusion at this time, continue to monitor Other cultures: 06/22/18: abd incision => Pseudomonas aeruginosa sensitive to Meropenem 06/22/18: Peg site => Pseudomonas aeruginosa sensitive to Meropenem 05/14/18: Peritoneal fluid => Pseudomonas aeruginosa sensitive to Meropenem 05/23/18: Wound cx => Yudith albicans 05/15/18, 05/22/18: Blood cx => no growth 05/22/18: Urine cx => no growth 05/31/18: Incision site => Enterococcus faecalis, Acinetobacter baumannii 06/03/18: Stool cxs => No Salmonella, Shigella, or Campylobacter isolates 06/13/18: Repeat wound cx => Coag-neg Staph, Enterococcus raffinosus 07/12 WBC - 6.3 from previous 5.9 Patient is afebrile at 98.1F F/u repeat wound cx 07/12, pending Antibiotics: Meropenem 1 g q 8 h IVPB discontinued as per Dr Rivera (07/11/2018) Vancomycin 1.5 g IV q 12 h (started 06/16 at 12 pm), discontinued as per Dr Rivera on 07/05 Cipro 400 mg IV q 12h d/c'd (started 06/02/18, last day 06/16/18) Flagyl 500 mg IVPB q 8 h completed (active from 05/15/18-06/19/18) Continue Gentamicin 0.1% TOP TID apply cream to peg tube site F/u vitamin levels and replace as needed: Vit D < 12.8, 99087 U q1 wk x 8 wks B12 707, wnl; repeat B12 508 Folate 12.6, wnl Vit A 42, wnl Alpha vit E 5.6, wnl Vit A, B1, B6, E levels reordered on 06/15 Vit B1: inappropriately submitted, 06/01/18 valve acceptable Vit B6: 5.9, wnl Vit A, E collected Repeat Vitamin levels ordered on 07/08, f/u results 07/08: Pre-albumin 11.6, B12 508, 25-OH vit D < 12.8 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 Diff (05/22, 05/24, 05/28) neg Stool ova and parasites (05/25/18) neg Stool leukocytes (05/25/18) neg Flagyl course finished Imodium 1 mg PO q 2h prn Anxiety Learning Support Resource Room Teacher consulted - pt refusing at this time Psych consulted (Dr. Reyez) - managing Ativan, c/w prn Lexapro 10 mg GT daily (started 05/31) Insomnia - Benadryl d/c'd, clinically not indicated Anemia, acute, stable, pt denies blood in stool Total 2 PRBC (on 05/16) and 4 FFP (on 05/15 and 05/16) 07/12 hb 10.1, hct: 30.8 Iron 16, TIBC 205, % sat 4.7, repeat ferritin 185 after Ferrlecit Monitor CBC q2d Per Dr. Cash, consider Procrit supplementation in attempt to avoid further transfusions if Hgb < 9 Thrombocytosis - suspect reactive to pain, surgery; resolved 07/12 platelets: 309 Monitor CBC q2d DM2, controlled From prior note: admittedly non-compliant, has not taken Januvia for 1 y Accuchecks q6h Hypoglycemic protocol ISS regular HgbA1c 5.8 Hx gastric bypass surgery Hypercholesterolemia, untx LDL < 30, HDL < 23, Chol 59, TG 195 (06/03/18) Hx gastric bypass surgery Questran 4 g PO bid Hx HTN, controlled Since gastric bypass has not taken meds Metoprolol 12.5 mg bid Hx Asthma - Chronic Continue to monitor Atrovent prn C/o productive cough on and off today, Robitussin prn, defer steroids at this time due to concern for wound healing s/p surgical procedures Added Claritin 10 daily for allergy sxs Nicotine use disorder - Chronic From prior note: 1 ppd x 20 y, 1/2 ppd x 3 y C/w Nicoderm patch Electrolyte imbalance - Hypokalemia, Hypomagnesemia; improving F/u am labs, replete as needed Mg 1.8 on 07/12, K 3.9 PPX, Diet, Dispo Hydrocortisone 1% cream top tid for R upper inner arm macular rash - improved Vitamin A+D top q 8h prn for dry lips Saliva substitute q 6 h prn for dry mouth IVF not indicated at this time VTE ppx: Lovenox 40 subQ d, SCDs, encourage ambulation GI ppx: Protonix 40 mg IV bid, Florastor bid Code status: Full code Continue PT services, follow up recs Dispo: Continue to optimize patient for reversal surgery. Dr. Harley to coordinate with Dr. Mccray plan for intervention. Pt to remain inpatient until reversal procedure performed by surgical team. Pt seen, examined with, and plan discussed with Dr. Kirby, attending. Morris Connolly DO PGY-1, [employer] Pager #[phone] <Wesley Kirby - Last Filed: 08/04/18 13:40> Attending/Attestation - Attestation I have personally seen and examined this patient.: Yes I have fully participated in the care of the patient.: Yes I have reviewed all pertinent clinical information, including history, physical exam and plan: Yes Notes (Text): Ischemic bowel disease 2/2 internal hernia producing bowel obstruction Chronic pain syndrome Diarrhea awaiting final decision re surgery to connect stomach with bowel based on nutritional status to be determined by surgery
--- NOTE | 2018-07-13 23:51 | CP.PCM.PN ---
Subjective - Date & Time of Evaluation Date of Evaluation: 07/13/18 Time of Evaluation: 13:00 - Subjective Subjective: No complaints. Objective - Vital Signs/Intake and Output Vital Signs (last 24 hours): Temp Pulse Resp BP Pulse Ox 98.7 F 118 H 20 118/73 98 07/13/18 15:10 07/13/18 18:57 07/13/18 15:10 07/13/18 18:57 07/13/18 15:10 Intake and Output: 07/13/18 07/14/18 18:59 06:59 Intake Total 400 500 Output Total 450 350 Balance -50 150 - Medications Medications: Current Medications Acetaminophen (Tylenol 650mg/20.3ml Solution Ud) 975 mg GT Q8H PRN PRN Reason: Pain, Mild (1-3) Last Admin: 07/10/18 18:30 Dose: 975 mg Benzocaine/Menthol (Cepacol Sore Throat) 1 sravan MT Q2H PRN PRN Reason: Sore Throat Last Admin: 07/13/18 11:11 Dose: 1 sravan Calcium Acetate (Phoslo) 667 mg GT TIDCC [facility] Last Admin: 07/13/18 18:51 Dose: 667 mg Cholestyramine Resin (Questran) 4 gm PO BID [facility] Last Admin: 07/13/18 18:51 Dose: 4 gm Dextrose (Dextrose 50% Inj) 0 ml IV STAT PRN; Protocol PRN Reason: Hypoglycemia Protocol Last Admin: 07/10/18 18:22 Dose: 25 ml Dextrose (Glutose 15) 0 gm PO ONCE PRN; Protocol PRN Reason: Hypoglycemia Protocol Enoxaparin Sodium (Lovenox) 40 mg SC DAILY [facility] Last Admin: 07/13/18 10:57 Dose: 40 mg Ergocalciferol (Drisdol 50,000 Intl Units Cap) 1 cap PO Q7D [facility] Stop: 07/20/18 10:01 Last Admin: 07/13/18 10:57 Dose: 1 cap Escitalopram Oxalate (Lexapro) 10 mg GT DAILY [facility] Last Admin: 07/13/18 10:57 Dose: 10 mg Gentamicin Sulfate (Gentamicin 0.1%) 0 gm TOP TID [facility] Last Admin: 07/13/18 18:53 Dose: 1 oin Glucagon (Glucagen Diagnostic Kit) 0 mg IM STAT PRN; Protocol PRN Reason: Hypoglycemia Protocol Guaifenesin (Robitussin) 100 mg PO Q4H PRN PRN Reason: Cough Last Admin: 07/13/18 18:52 Dose: 100 mg Hydromorphone HCl (Dilaudid) 1 mg IVP Q3 PRN PRN Reason: Pain, SEVERE (8-10) Last Admin: 07/13/18 23:35 Dose: 1 mg Insulin Human Regular (Novolin R) 0 unit SC ACHS [facility]; Protocol Last Admin: 07/13/18 17:25 Dose: Not Given Ipratropium [place] (Atrovent) 0.5 mg IH RQ6 [facility] Last Admin: 07/13/18 19:50 Dose: 0.5 mg Loperamide HCl (Imodium) 1 mg PO Q2H PRN PRN Reason: Diarrhea Last Admin: 07/13/18 18:54 Dose: 1 mg Loratadine (Claritin) 10 mg PO DAILY [facility] Last Admin: 07/13/18 14:25 Dose: 10 mg Lorazepam (Ativan) 1 mg IVP BID [facility] Last Admin: 07/13/18 18:52 Dose: 1 mg Metoprolol Tartrate (Lopressor) 12.5 mg PEG BID [facility] Last Admin: 07/13/18 18:51 Dose: 12.5 mg Nicotine (Nicoderm Cq) 1 patch TD DAILY [facility] Last Admin: 07/13/18 10:57 Dose: 1 patch Ondansetron HCl (Zofran Inj) 4 mg IVP Q6H PRN PRN Reason: Nausea/Vomiting Last Admin: 07/13/18 18:51 Dose: 4 mg Pantoprazole Sodium (Protonix Susp) 40 mg PO DAILY [facility] Last Admin: 07/13/18 10:57 Dose: 40 mg Saliva Substitute (Mouth Kote 236 Ml) 0 ml MM Q6 PRN PRN Reason: Dry mouth Vitamin A (Vitamin A & D Oint Ud Foilpak) 1 ea TOP Q8 PRN PRN Reason: dry lips Vitamin E (Vitamin E 400 Units Cap) 400 intlu GT DAILY [facility] Last Admin: 07/13/18 10:57 Dose: 400 intlu - Labs Labs: 07/12/18 07:41 07/12/18 07:41 PT 14.3 SECONDS (9.7-12.2) H 06/10/18 07:05 INR 1.3 06/10/18 07:05 APTT 33 SECONDS (21-34) 05/25/18 06:16 - Head Exam Head Exam: ATRAUMATIC - Eye Exam Eye Exam: Normal appearance - ENT Exam ENT Exam: Mucous Membranes Dry - Respiratory Exam Respiratory Exam: NORMAL BREATHING PATTERN - Cardiovascular Exam Cardiovascular Exam: +S1, +S2 - GI/Abdominal Exam GI & Abdominal Exam: Normal Bowel Sounds Assessment and Plan (1) Anemia Assessment & Plan: iron deficiency anemia resolved s/p IV iron anemia of chronic disease; will consider Procrit supplementation in an attempt to avoid further transfusions if hgb < 9 FOBT positive transfuse PRN Status: Acute
[2018-07-14] MEDS: Ipratropium 0.02% Inhal Soln (0.5 mg/2.5 ml) UD IH SCH ×2 (02:25→07:42)
[2018-07-14 08:26] LABS: BASO # 0.1 K/uL (0.0-0.2); BASO % 0.8 % (0.0-2.0); EOS # 0.7 K/uL (0.0-0.7); EOS % 7.3 % (0.0-4.0); HEMOGLOBIN 10.4 g/dL (11.0-16.0); LYMPH # 2.3 K/uL (1.0-4.3); LYMPH % 23.9 % (20.0-40.0); MEAN CELL VOLUME 87.7 fL (81.0-99.0); MEAN CORPUSCULAR HEMOGLOBIN 29.2 pg (27.0-31.0); MEAN CORPUSCULAR HGB CONC 33.3 g/dL (33.0-37.0); MEAN PLATELET VOLUME 7.3 fL (7.2-11.7); MONO # 0.4 K/uL (0.0-0.8); MONO % 4.1 % (0.0-10.0); NEUT # 6.1 K/uL (1.8-7.0); NEUT % 63.9 % (50.0-75.0); RBC 3.57 Mil/uL (3.80-5.20); RED CELL DISTRIBUTION WIDTH 17.7 % (11.5-14.5)
[2018-07-14 08:30] LABS: WHITE BLOOD COUNT 9.5 K/uL (4.8-10.8)
[2018-07-14] MEDS: (Novolin R) Insulin Human Regular 100 units/ml vial SC SCH ×4 (08:35→22:49)
[2018-07-14 08:46] LABS: ALB/GLOB RATIO 1.1 (1.0-2.1); ALBUMIN 3.1 g/dL (3.5-5.0); ALT/SGPT 27 U/L (9-52); AST/SGOT 14 U/L (14-36); BLOOD UREA NITROGEN 9 mg/dL (7-17); CALCIUM 8.6 mg/dl (8.6-10.4); GFR NON-AFRICAN AMERICAN > 60
--- NOTE | 2018-07-14 09:48 | CP.PCM.PN ---
<Morris Connolly - Last Filed: 07/14/18 17:12> Subjective - Date & Time of Evaluation Date of Evaluation: 07/14/18 Time of Evaluation: 07:30 - Subjective Subjective: Medicine Progress Note for Hospitalist Service Pt seen and examined at bedside this am. Denies any acute complaints, reports pain well controlled. States Claritin is helping with her allergy symptoms. No acute events reported overnight. Output from NGT 200 cc. Abd wound vac and gastrostomy tube intact. 12-point ROS obtained, otherwise neg as per pt. Objective - Vital Signs/Intake and Output Vital Signs (last 24 hours): Temp Pulse Resp BP Pulse Ox 98.9 F 98 H 18 110/74 96 07/14/18 07:00 07/14/18 07:00 07/14/18 07:00 07/14/18 07:00 07/14/18 07:00 Intake and Output: 07/14/18 07/14/18 06:59 18:59 Intake Total 900 Output Total 400 Balance 500 - Medications Medications: Current Medications Acetaminophen (Tylenol 650mg/20.3ml Solution Ud) 975 mg GT Q8H PRN PRN Reason: Pain, Mild (1-3) Last Admin: 07/10/18 18:30 Dose: 975 mg Benzocaine/Menthol (Cepacol Sore Throat) 1 sravan MT Q2H PRN PRN Reason: Sore Throat Last Admin: 07/13/18 11:11 Dose: 1 sravan Calcium Acetate (Phoslo) 667 mg GT TIDCC [facility] Last Admin: 07/14/18 08:34 Dose: 667 mg Cholestyramine Resin (Questran) 4 gm PO BID [facility] Last Admin: 07/13/18 18:51 Dose: 4 gm Dextrose (Dextrose 50% Inj) 0 ml IV STAT PRN; Protocol PRN Reason: Hypoglycemia Protocol Last Admin: 07/10/18 18:22 Dose: 25 ml Dextrose (Glutose 15) 0 gm PO ONCE PRN; Protocol PRN Reason: Hypoglycemia Protocol Enoxaparin Sodium (Lovenox) 40 mg SC DAILY [facility] Last Admin: 07/13/18 10:57 Dose: 40 mg Ergocalciferol (Drisdol 50,000 Intl Units Cap) 1 cap PO Q7D [facility] Stop: 07/20/18 10:01 Last Admin: 07/13/18 10:57 Dose: 1 cap Escitalopram Oxalate (Lexapro) 10 mg GT DAILY [facility] Last Admin: 07/13/18 10:57 Dose: 10 mg Gentamicin Sulfate (Gentamicin 0.1%) 0 gm TOP TID [facility] Last Admin: 07/13/18 18:53 Dose: 1 oin Glucagon (Glucagen Diagnostic Kit) 0 mg IM STAT PRN; Protocol PRN Reason: Hypoglycemia Protocol Guaifenesin (Robitussin) 100 mg PO Q4H PRN PRN Reason: Cough Last Admin: 07/13/18 18:52 Dose: 100 mg Hydromorphone HCl (Dilaudid) 1 mg IVP Q3 PRN PRN Reason: Pain, SEVERE (8-10) Last Admin: 07/14/18 07:14 Dose: 1 mg Insulin Human Regular (Novolin R) 0 unit SC ACHS [facility]; Protocol Last Admin: 07/14/18 08:35 Dose: Not Given Ipratropium [place] (Atrovent) 0.5 mg IH RQ6 [facility] Last Admin: 07/14/18 07:42 Dose: Not Given Loperamide HCl (Imodium) 1 mg PO Q2H PRN PRN Reason: Diarrhea Last Admin: 07/13/18 18:54 Dose: 1 mg Loratadine (Claritin) 10 mg PO DAILY [facility] Last Admin: 07/13/18 14:25 Dose: 10 mg Lorazepam (Ativan) 1 mg IVP BID [facility] Last Admin: 07/13/18 18:52 Dose: 1 mg Metoprolol Tartrate (Lopressor) 12.5 mg PEG BID [facility] Last Admin: 07/13/18 18:51 Dose: 12.5 mg Nicotine (Nicoderm Cq) 1 patch TD DAILY [facility] Last Admin: 07/13/18 10:57 Dose: 1 patch Ondansetron HCl (Zofran Inj) 4 mg IVP Q6H PRN PRN Reason: Nausea/Vomiting Last Admin: 07/14/18 08:34 Dose: 4 mg Pantoprazole Sodium (Protonix Susp) 40 mg PO DAILY [facility] Last Admin: 07/13/18 10:57 Dose: 40 mg Saliva Substitute (Mouth Kote 236 Ml) 0 ml MM Q6 PRN PRN Reason: Dry mouth Vitamin A (Vitamin A & D Oint Ud Foilpak) 1 ea TOP Q8 PRN PRN Reason: dry lips Vitamin E (Vitamin E 400 Units Cap) 400 intlu GT DAILY [facility] Last Admin: 07/13/18 10:57 Dose: 400 intlu - Labs Labs: 07/14/18 08:15 07/14/18 08:15 PT 14.3 SECONDS (9.7-12.2) H 06/10/18 07:05 INR 1.3 06/10/18 07:05 APTT 33 SECONDS (21-34) 05/25/18 06:16 - Constitutional Appears: Non-toxic, No Acute Distress, Chronically Ill - Head Exam Head Exam: ATRAUMATIC, NORMOCEPHALIC - Eye Exam Eye Exam: EOMI, Normal appearance, PERRL - ENT Exam ENT Exam: Mucous Membranes Moist, Normal Oropharynx - Neck Exam Neck Exam: Full ROM, Normal Inspection. absent: Lymphadenopathy, Tenderness - Respiratory Exam Respiratory Exam: Clear to Ausculation Bilateral, NORMAL BREATHING PATTERN. absent: Rales, Rhonchi, Wheezes - Cardiovascular Exam Cardiovascular Exam: REGULAR RHYTHM, +S1, +S2. absent: Tachycardia, Gallop, Rubs, Murmur - GI/Abdominal Exam GI & Abdominal Exam: Soft, Normal Bowel Sounds. absent: Distended, Firm, Guarding, Rigid, Tenderness, Organomegaly Additional comments: Abdominal wound vac and gastrostomy tube in place, c/d/i - Extremities Exam Extremities Exam: Full ROM, Normal Capillary Refill, Normal Inspection. absent: Calf Tenderness, Joint Swelling, Pedal Edema - Back Exam Back Exam: Full ROM, NORMAL INSPECTION - Neurological Exam Neurological Exam: Alert, Awake, CN II-XII Intact, Normal Gait, Oriented x3, Reflexes Normal - Psychiatric Exam Psychiatric exam: Normal Affect, Normal Mood - Skin Skin Exam: Dry, Intact, Normal Color, Warm Assessment and Plan - Assessment and Plan (Free Text) Assessment: 38 y o female with PMHx HTN, HLD, DM2, asthma, s/p bowel resection (05/14/18, 05/16/18) 2/2 internal hernia s/p Binta-en-Y gastric bypass in 2013, admitted for medical optimization prior to reversal of bypass. Plan: Ischemic bowel disease 2/2 internal hernia producing bowel obstruction Current drains include: NGT (intermittent suction per surgery recs) replaced on 07/09/18 by surgery team, gastrostomy tube (replaced 06/10/18) Latest wound cultures: -Abd incision, Peg incision site => Pseudomonas aeruginosa, sensitive to Meropenem -Per ID: Meropenem 1 g q 8 h (d/c 07/11), Vancomycin 1.5 g IVPB q 12 h (d/c on 07/05/18) -vanco trough 07/05 -- 15.1 -Repeat abd wound cx 07/12 growing gram-neg wolf and yeast; Dr. Rivera notified, advised to obtain stat blood cxs x2 and restart Meropenem Surgery (Dr. Harley) consulted - awaiting Dr Mccray's response on surgical intervention; f/u with surgical team regarding dispo Wound vac to continuous suction, to be replaced Q72hrs (last change was 07/12) Heme/onc (Dr. Cash) consulted for Fe status - repeat ferritin 185, no need for iron infusion at this time, continue to monitor Other cultures: 06/22/18: abd incision => Pseudomonas aeruginosa sensitive to Meropenem 06/22/18: Peg site => Pseudomonas aeruginosa sensitive to Meropenem 05/14/18: Peritoneal fluid => Pseudomonas aeruginosa sensitive to Meropenem 05/23/18: Wound cx => Yudith albicans 05/15/18, 05/22/18: Blood cx => no growth 05/22/18: Urine cx => no growth 05/31/18: Incision site => Enterococcus faecalis, Acinetobacter baumannii 06/03/18: Stool cxs => No Salmonella, Shigella, or Campylobacter isolates 06/13/18: Repeat wound cx => Coag-neg Staph, Enterococcus raffinosus 07/12/18 Repeat wound cx growing gram-neg wolf + Yeast, repeat blood cxs ordered today, pt restarted on Meropenem as per ID recs 07/14 WBC - 9.5 Patient is afebrile at 98.9F Antibiotics: Meropenem 1 g q 8 h IVPB discontinued as per Dr Rivera (07/11/2018); restarted today as per ID due to pos abd wound cx (07/12) Vancomycin 1.5 g IV q 12 h (started 06/16 at 12 pm), discontinued as per Dr Ra yi on 07/05 Cipro 400 mg IV q 12h d/c'd (started 06/02/18, last day 06/16/18) Flagyl 500 mg IVPB q 8 h completed (active from 05/15/18-06/19/18) Continue Gentamicin 0.1% TOP TID apply cream to peg tube site F/u vitamin levels and replace as needed: Vit D < 12.8, 49510 U q1 wk x 8 wks B12 707, wnl; repeat B12 508 Folate 12.6, wnl Vit A 42, wnl Alpha vit E 5.6, wnl Zinc level wnl Vit A, B1, B6, E levels reordered on 06/15 Vit B1: inappropriately submitted, 06/01/18 valve acceptable Vit B6: 5.9, wnl Vit A, E collected Repeat Vitamin levels ordered on 07/08, f/u results 07/08: Pre-albumin 11.6, B12 508, 25-OH vit D < 12.8 As per top knitter recs on 07/11, will adjust Jevity feeds for pt's updated weight for optimal nutrition C/w Tylenol 975 mg liquid q 8h, Dilaudid 1 mg q 3 h prn, Zofran 4 mg IV q 6 h prn Tachycardia, persistent, hx into 110s-130s - possible etiologies include pain, infection, anxiety Today HR - 90, continue to monitor and trend Ativan prn, Dilaudid prn C/w metoprolol tartrate 12.5 mg bid Diarrhea, acute improving - suspect 2/2 PO intake by patient C. Diff (05/22, 05/24, 05/28) neg Stool ova and parasites (05/25/18) neg Stool leukocytes (05/25/18) neg Flagyl course finished Imodium 1 mg PO q 2h prn Anxiety County Administrator consulted - pt refusing at this time Psych consulted (Dr. Reyez) - managing Ativan, c/w prn Lexapro 10 mg GT daily (started 05/31) Insomnia - Benadryl d/c'd, clinically not indicated Anemia, acute, stable, pt denies blood in stool Total 2 PRBC (on 05/16) and 4 FFP (on 05/15 and 05/16) 10/4 hb 10.4, hct: 31.3 Iron 16, TIBC 205, % sat 4.7, repeat ferritin 185 after Ferrlecit Monitor CBC q2d Per Dr. Cash, consider Procrit supplementation in attempt to avoid further transfusions if Hgb < 9 Thrombocytosis - suspect reactive to pain, surgery; resolved 07/14 platelets: 304 Monitor CBC q2d DM2, controlled From prior note: admittedly non-compliant, has not taken Januvia for 1 y Accuchecks q6h Hypoglycemic protocol ISS regular HgbA1c 5.8 Hx gastric bypass surgery Hypercholesterolemia, untx LDL < 30, HDL < 23, Chol 59, TG 195 (06/03/18) Hx gastric bypass surgery Questran 4 g PO bid Hx HTN, controlled Since gastric bypass has not taken meds Metoprolol 12.5 mg bid Hx Asthma - Chronic Continue to monitor Atrovent prn C/o productive cough on and off today, Robitussin prn, defer steroids at this ti me due to concern for wound healing s/p surgical procedures Added Claritin 10 daily for allergy sxs Nicotine use disorder - Chronic From prior note: 1 ppd x 20 y, 1/2 ppd x 3 y C/w Nicoderm patch Electrolyte imbalance - Hypokalemia, Hypomagnesemia; improving F/u am labs, replete as needed Mg 1.6 on 07/14, K 3.8 PPX, Diet, Dispo Hydrocortisone 1% cream top tid for R upper inner arm macular rash - improved Vitamin A+D top q 8h prn for dry lips Saliva substitute q 6 h prn for dry mouth IVF not indicated at this time VTE ppx: Lovenox 40 subQ d, SCDs, encourage ambulation GI ppx: Protonix 40 mg IV bid, Florastor bid Code status: Full code Continue PT services, follow up recs Dispo: Continue to optimize patient for reversal surgery. Dr. Harley to coordinate with Dr. Mccray plan for intervention. Pt to remain inpatient until reversal procedure performed by surgical team. Pt seen, examined with, and plan discussed with Dr. Kirby, attending. Morris Connolly DO PGY-1, [employer] Pager #[phone] <Wesley Kirby - Last Filed: 08/04/18 13:39> Objective - Vital Signs/Intake and Output Vital Signs (last 24 hours): Temp Pulse Resp BP Pulse Ox 99.2 F 69 20 72/43 L 92 L 10/19/18 23:20 07/29/18 23:20 07/29/18 23:20 07/29/18 23:20 07/29/18 23:20 - Labs Labs: 07/30/18 04:14 07/30/18 04:14 PT 14.3 SECONDS (9.7-12.2) H 06/10/18 07:05 INR 1.3 06/10/18 07:05 APTT 33 SECONDS (21-34) 05/25/18 06:16 Attending/Attestation - Attestation I have personally seen and examined this patient.: Yes I have fully participated in the care of the patient.: Yes I have reviewed all pertinent clinical information, including history, physical exam and plan: Yes Notes (Text): Ischemic bowel disease 2/2 internal hernia producing bowel obstruction Chronic pain syndrome Diarrhea awaiting final decision re surgery to connect stomach with bowel based on nutritional status to be determined by surgery
[2018-07-14] MEDS: GENTAMICIN 0.1% TOP SCH ×2 (11:19→13:22)
[2018-07-14] MEDS: Enoxaparin 40 mg Syringe SC SCH (11:21)
[2018-07-14] MEDS: Pantoprazole 40 mg Susp UD PO SCH (11:23)
[2018-07-14] MEDS: guaiFENesin 100 mg/5 ml Syrup UD PO PRN ×2 (11:29→18:08)
[2018-07-14] MEDS: Benzocaine/Menthol (Cepacol) Lozenge MT PRN ×2 (11:45→18:09)
[2018-07-14] MEDS: Loperamide Hydrochloride 1 mg/5 ml Cup PO PRN ×2 (11:46→18:08)
[2018-07-14] MEDS: Cholestyramine 4 gm/Pkt UD PO SCH ×2 (11:47→18:08)
--- NOTE | 2018-07-14 17:50 | CP.PCM.PN ---
Subjective - Date & Time of Evaluation Date of Evaluation: 07/14/18 Time of Evaluation: 14:00 - Subjective Subjective: NO complaints. Objective - Vital Signs/Intake and Output Vital Signs (last 24 hours): Temp Pulse Resp BP Pulse Ox 98.9 F 98 H 18 110/74 96 07/14/18 07:00 07/14/18 07:00 07/14/18 07:00 07/14/18 07:00 07/14/18 07:00 Intake and Output: 07/14/18 07/14/18 06:59 18:59 Intake Total 900 600 Output Total 400 200 Balance 500 400 - Medications Medications: Current Medications Acetaminophen (Tylenol 650mg/20.3ml Solution Ud) 975 mg GT Q8H PRN PRN Reason: Pain, Mild (1-3) Last Admin: 07/10/18 18:30 Dose: 975 mg Benzocaine/Menthol (Cepacol Sore Throat) 1 sravan MT Q2H PRN PRN Reason: Sore Throat Last Admin: 07/14/18 11:45 Dose: 1 sravan Calcium Acetate (Phoslo) 667 mg GT TIDCC [facility] Last Admin: 07/14/18 11:29 Dose: 667 mg Cholestyramine Resin (Questran) 4 gm PO BID [facility] Last Admin: 07/14/18 11:47 Dose: 4 gm Dextrose (Dextrose 50% Inj) 0 ml IV STAT PRN; Protocol PRN Reason: Hypoglycemia Protocol Last Admin: 07/10/18 18:22 Dose: 25 ml Dextrose (Glutose 15) 0 gm PO ONCE PRN; Protocol PRN Reason: Hypoglycemia Protocol Enoxaparin Sodium (Lovenox) 40 mg SC DAILY [facility] Last Admin: 07/14/18 11:21 Dose: 40 mg Ergocalciferol (Drisdol 50,000 Intl Units Cap) 1 cap PO Q7D [facility] Stop: 07/20/18 10:01 Last Admin: 07/13/18 10:57 Dose: 1 cap Escitalopram Oxalate (Lexapro) 10 mg GT DAILY [facility] Last Admin: 07/14/18 11:46 Dose: 10 mg Gentamicin Sulfate (Gentamicin 0.1%) 0 gm TOP TID [facility] Last Admin: 07/14/18 13:22 Dose: 1 oin Glucagon (Glucagen Diagnostic Kit) 0 mg IM STAT PRN; Protocol PRN Reason: Hypoglycemia Protocol Guaifenesin (Robitussin) 100 mg PO Q4H PRN PRN Reason: Cough Last Admin: 07/14/18 11:29 Dose: 100 mg Hydromorphone HCl (Dilaudid) 1 mg IVP Q3 PRN PRN Reason: Pain, SEVERE (8-10) Last Admin: 07/14/18 16:20 Dose: 1 mg Meropenem 1 gm/ Sodium (Chloride) 100 mls @ 100 mls/hr IVPB Q8H [facility]; Protocol Insulin Human Regular (Novolin R) 0 unit SC ACHS [facility]; Protocol Last Admin: 07/14/18 17:43 Dose: Not Given Ipratropium [place] (Atrovent) 0.5 mg IH RQ6 [facility] Last Admin: 07/14/18 07:42 Dose: Not Given Loperamide HCl (Imodium) 1 mg PO Q2H PRN PRN Reason: Diarrhea Last Admin: 07/14/18 11:46 Dose: 1 mg Loratadine (Claritin) 10 mg PO DAILY [facility] Last Admin: 07/14/18 11:19 Dose: 10 mg Lorazepam (Ativan) 1 mg IVP BID [facility] Last Admin: 07/14/18 11:23 Dose: 1 mg Metoprolol Tartrate (Lopressor) 12.5 mg PEG BID [facility] Last Admin: 07/14/18 11:20 Dose: 12.5 mg Nicotine (Nicoderm Cq) 1 patch TD DAILY [facility] Last Admin: 07/14/18 11:47 Dose: 1 patch Ondansetron HCl (Zofran Inj) 4 mg IVP Q6H PRN PRN Reason: Nausea/Vomiting Last Admin: 07/14/18 08:34 Dose: 4 mg Pantoprazole Sodium (Protonix Susp) 40 mg PO DAILY [facility] Last Admin: 07/14/18 11:23 Dose: 40 mg Saliva Substitute (Mouth Kote 236 Ml) 0 ml MM Q6 PRN PRN Reason: Dry mouth Vitamin A (Vitamin A & D Oint Ud Foilpak) 1 ea TOP Q8 PRN PRN Reason: dry lips Vitamin E (Vitamin E 400 Units Cap) 400 intlu GT DAILY [facility] Last Admin: 07/14/18 11:47 Dose: 400 intlu - Labs Labs: 07/14/18 08:15 10/04/18 08:15 PT 14.3 SECONDS (9.7-12.2) H 06/10/18 07:05 INR 1.3 06/10/18 07:05 APTT 33 SECONDS (21-34) 05/25/18 06:16 - Head Exam Head Exam: ATRAUMATIC - Eye Exam Eye Exam: Normal appearance - ENT Exam ENT Exam: Mucous Membranes Dry - Respiratory Exam Respiratory Exam: NORMAL BREATHING PATTERN - Cardiovascular Exam Cardiovascular Exam: +S1, +S2 - GI/Abdominal Exam GI & Abdominal Exam: Normal Bowel Sounds Assessment and Plan (1) Anemia Assessment & Plan: iron deficiency anemia resolved s/p IV iron anemia of chronic disease; will consider Procrit supplementation in an attempt to avoid further transfusions if hgb < 9 FOBT positive transfuse PRN Status: Acute
[2018-07-14] MEDS: Acetaminophen 650mg/20.3ml solution UD GT PRN (18:07)
[2018-07-14] MEDS: Meropenem 1 GM in Sodium Chloride 0.9% 100 ML IVPB SCH (18:08)
--- NOTE | 2018-07-14 22:47 | CP.PCM.PN ---
Subjective - Date & Time of Evaluation Date of Evaluation: 07/14/18 Time of Evaluation: 14:25 - Subjective Subjective: dictated Objective - Vital Signs/Intake and Output Vital Signs (last 24 hours): Temp Pulse Resp BP Pulse Ox 99.8 F H 101 H 20 112/76 98 07/14/18 19:07 07/14/18 15:15 07/14/18 15:15 07/14/18 15:15 07/14/18 15:15 Intake and Output: 07/14/18 07/15/18 18:59 06:59 Intake Total 600 Output Total 200 Balance 400 - Medications Medications: Current Medications Acetaminophen (Tylenol 650mg/20.3ml Solution Ud) 975 mg GT Q8H PRN PRN Reason: Pain, Mild (1-3) Last Admin: 07/14/18 18:07 Dose: 975 mg Benzocaine/Menthol (Cepacol Sore Throat) 1 sravan MT Q2H PRN PRN Reason: Sore Throat Last Admin: 07/14/18 18:09 Dose: 1 sravan Calcium Acetate (Phoslo) 667 mg GT TIDCC [facility] Last Admin: 07/14/18 18:08 Dose: 667 mg Cholestyramine Resin (Questran) 4 gm PO BID [facility] Last Admin: 07/14/18 18:08 Dose: 4 gm Dextrose (Dextrose 50% Inj) 0 ml IV STAT PRN; Protocol PRN Reason: Hypoglycemia Protocol Last Admin: 07/10/18 18:22 Dose: 25 ml Dextrose (Glutose 15) 0 gm PO ONCE PRN; Protocol PRN Reason: Hypoglycemia Protocol Enoxaparin Sodium (Lovenox) 40 mg SC DAILY [facility] Last Admin: 07/14/18 11:21 Dose: 40 mg Ergocalciferol (Drisdol 50,000 Intl Units Cap) 1 cap PO Q7D [facility] Stop: 07/20/18 10:01 Last Admin: 07/13/18 10:57 Dose: 1 cap Escitalopram Oxalate (Lexapro) 10 mg GT DAILY [facility] Last Admin: 07/14/18 11:46 Dose: 10 mg Gentamicin Sulfate (Gentamicin 0.1%) 0 gm TOP TID [facility] Last Admin: 07/14/18 13:22 Dose: 1 oin Glucagon (Glucagen Diagnostic Kit) 0 mg IM STAT PRN; Protocol PRN Reason: Hypoglycemia Protocol Guaifenesin (Robitussin) 100 mg PO Q4H PRN PRN Reason: Cough Last Admin: 07/14/18 18:08 Dose: 100 mg Hydromorphone HCl (Dilaudid) 1 mg IVP Q3 PRN PRN Reason: Pain, SEVERE (8-10) Last Admin: 07/14/18 22:23 Dose: 1 mg Meropenem 1 gm/ Sodium (Chloride) 100 mls @ 100 mls/hr IVPB Q8H [facility]; Protocol Last Admin: 07/14/18 18:08 Dose: 100 mls/hr Insulin Human Regular (Novolin R) 0 unit SC ACHS [facility]; Protocol Last Admin: 07/14/18 17:43 Dose: Not Given Ipratropium [place] (Atrovent) 0.5 mg IH RQ6 [facility] Last Admin: 07/14/18 07:42 Dose: Not Given Loperamide HCl (Imodium) 1 mg PO Q2H PRN PRN Reason: Diarrhea Last Admin: 07/14/18 18:08 Dose: 1 mg Loratadine (Claritin) 10 mg PO DAILY [facility] Last Admin: 07/14/18 11:19 Dose: 10 mg Lorazepam (Ativan) 1 mg IVP BID [facility] Last Admin: 07/14/18 18:08 Dose: 1 mg Metoprolol Tartrate (Lopressor) 12.5 mg PEG BID [facility] Last Admin: 07/14/18 18:07 Dose: 12.5 mg Nicotine (Nicoderm Cq) 1 patch TD DAILY [facility] Last Admin: 07/14/18 11:47 Dose: 1 patch Ondansetron HCl (Zofran Inj) 4 mg IVP Q6H PRN PRN Reason: Nausea/Vomiting Last Admin: 07/14/18 08:34 Dose: 4 mg Pantoprazole Sodium (Protonix Susp) 40 mg PO DAILY [facility] Last Admin: 07/14/18 11:23 Dose: 40 mg Saliva Substitute (Mouth Kote 236 Ml) 0 ml MM Q6 PRN PRN Reason: Dry mouth Vitamin A (Vitamin A & D Oint Ud Foilpak) 1 ea TOP Q8 PRN PRN Reason: dry lips Vitamin E (Vitamin E 400 Units Cap) 400 intlu GT DAILY [facility] Last Admin: 07/14/18 11:47 Dose: 400 intlu - Labs Labs: 07/14/18 08:15 07/14/18 08:15 PT 14.3 SECONDS (9.7-12.2) H 06/10/18 07:05 INR 1.3 06/10/18 07:05 APTT 33 SECONDS (21-34) 05/25/18 06:16
--- NOTE | 2018-07-15 00:25 | PN ---
DATE: 07/14/2018 SUBJECTIVE: The patient was seen today. Her cultures were still growing gram-negative bacilli. Hence we decided to put her back on meropenem, and she said that there was also yeast going, and I am going to look into the report. She was doing well, otherwise. Her pain was controlled, and she says they put the wound VAC on again, and gastrostomy tube was there, and she remains in isolation in a single room. OBJECTIVE: VITAL SIGNS: She has been having fevers again, it was 100.1 today with a heart rate of 101, blood pressure 112/76, respirations are 20. HEENT: Head is atraumatic, normocephalic. NECK: Supple. SKIN: She is pale. LUNGS: Clear. HEART: S1, S2 regular. ABDOMEN: Soft, nontender. There is a vacuum present, and I tied to the central surgical wound, and there is a jejunostomy tube. She still has a PICC line. EXTREMITIES: Have no edema. Labs are noted. Labs show white count is 9.5, hemoglobin 10.4, hematocrit 31.3, platelet count is 304. BUN is 9, creatinine 0.5. Sodium is 138, potassium is 6. So at this time, microbiology showed Pseudomonas and Yudith so I will put her back on Merrem as well as Mycamine at this time, and we will follow. The patient needs definitive surgery as she is probably leaking or having a connection between the jejunostomy tube and surgical wound, and we are waiting for the definitive procedure. Otherwise, this patient has been on antibiotics for many, many days now, and growing resistant organisms. Guero Rivera MD
[2018-07-15] MEDS: Ipratropium 0.02% Inhal Soln (0.5 mg/2.5 ml) UD IH SCH ×3 (01:20→19:39)
[2018-07-15] MEDS: Meropenem 1 GM in Sodium Chloride 0.9% 100 ML IVPB SCH ×4 (01:30→23:08)
[2018-07-15] MEDS ORDERED: Acetaminophen 650mg/20.3ml solution UD GT STA (04:44)
[2018-07-15] MEDS ORDERED: Albuterol-Ipratrop 3 mg / 0.5 (3 ml) UD INH STA (04:48)
[2018-07-15] MEDS: (Novolin R) Insulin Human Regular 100 units/ml vial SC SCH ×4 (07:54→21:21)
[2018-07-15 08:38] LABS: BASO # 0.1 K/uL (0.0-0.2); BASO % 0.9 % (0.0-2.0); EOS # 0.7 K/uL (0.0-0.7); EOS % 6.9 % (0.0-4.0); LYMPH # 1.9 K/uL (1.0-4.3); LYMPH % 20.2 % (20.0-40.0); MEAN CELL VOLUME 86.6 fL (81.0-99.0); MEAN CORPUSCULAR HEMOGLOBIN 28.7 pg (27.0-31.0); MEAN CORPUSCULAR HGB CONC 33.2 g/dL (33.0-37.0); MEAN PLATELET VOLUME 7.2 fL (7.2-11.7); MONO # 0.6 K/uL (0.0-0.8); NEUT # 6.3 K/uL (1.8-7.0); RBC 3.46 Mil/uL (3.80-5.20); RED CELL DISTRIBUTION WIDTH 17.8 % (11.5-14.5); WHITE BLOOD COUNT 9.6 K/uL (4.8-10.8)
--- NOTE | 2018-07-15 09:05 | RAD ---
Date of service: 07/15/2018 HISTORY: fever, r/o infiltrate COMPARISON: 07/09/2018. FINDINGS: The right PICC line terminates at the cavoatrial junction. The nasogastric tube likely terminates in the distal esophagus. LUNGS: The lungs are well inflated and clear. There is a calcified nodule in the left lower lobe. PLEURA: No significant pleural effusion identified, no pneumothorax apparent. CARDIOVASCULAR: Normal. OSSEOUS STRUCTURES: No significant abnormalities. VISUALIZED UPPER ABDOMEN: Normal. OTHER FINDINGS: There are multiple surgical clips in the epigastrium. IMPRESSION: No acute findings. The nasogastric tube likely terminates in the distal esophagus.
[2018-07-15] MEDS: Benzocaine/Menthol (Cepacol) Lozenge MT PRN (10:35)
[2018-07-15] MEDS: GENTAMICIN 0.1% TOP SCH ×3 (10:36→18:44)
[2018-07-15] MEDS: Enoxaparin 40 mg Syringe SC SCH (10:37)
[2018-07-15] MEDS: guaiFENesin 100 mg/5 ml Syrup UD PO PRN ×2 (10:42→18:43)
[2018-07-15] MEDS: Pantoprazole 40 mg Susp UD PO SCH (10:42)
[2018-07-15] MEDS: Cholestyramine 4 gm/Pkt UD PO SCH ×2 (10:42→18:43)
[2018-07-15] MEDS: Loperamide Hydrochloride 1 mg/5 ml Cup PO PRN (10:44)
--- NOTE | 2018-07-15 11:27 | CP.PCM.PN ---
<Humberto Banegas - Last Filed: 07/15/18 20:14> Subjective - Date & Time of Evaluation Date of Evaluation: 07/15/18 Time of Evaluation: 09:00 - Subjective Subjective: PGY-[address] Kirby Patient is seen and examined at bedside. Patient states having body ache and coughing last night. overnight, Patient had fever of 102.9, as per nurse. Patient was given tylenol, which resolved fever. Patient admits to having chills last night. She states she still is coughing this morning with some phlegm. Patient is tired and falls asleep during encounter. Patient admits to nausea but no vomiting. Denies abdominal pain, diarrhea, constipation or dyuria. output from NGT was 500 cc overnight, and at time of encounter output was 500cc. Objective - Vital Signs/Intake and Output Vital Signs (last 24 hours): Temp Pulse Resp BP Pulse Ox 99.3 F 100 H 18 100/67 97 07/15/18 07:00 07/15/18 07:00 07/15/18 07:00 07/15/18 07:00 07/15/18 07:00 Intake and Output: 07/15/18 07/15/18 06:59 18:59 Intake Total 1200 Output Total 355 Balance 845 - Medications Medications: Current Medications Acetaminophen (Tylenol 650mg/20.3ml Solution Ud) 975 mg GT Q8H PRN PRN Reason: Pain, Mild (1-3) Last Admin: 07/14/18 18:07 Dose: 975 mg Benzocaine/Menthol (Cepacol Sore Throat) 1 sravan MT Q2H PRN PRN Reason: Sore Throat Last Admin: 07/15/18 10:35 Dose: 1 sravan Calcium Acetate (Phoslo) 667 mg GT TIDCC [facility] Last Admin: 07/15/18 07:54 Dose: 667 mg Cholestyramine Resin (Questran) 4 gm PO BID [facility] Last Admin: 07/15/18 10:42 Dose: 4 gm Dextrose (Dextrose 50% Inj) 0 ml IV STAT PRN; Protocol PRN Reason: Hypoglycemia Protocol Last Admin: 07/10/18 18:22 Dose: 25 ml Dextrose (Glutose 15) 0 gm PO ONCE PRN; Protocol PRN Reason: Hypoglycemia Protocol Enoxaparin Sodium (Lovenox) 40 mg SC DAILY [facility] Last Admin: 07/15/18 10:37 Dose: 40 mg Ergocalciferol (Drisdol 50,000 Intl Units Cap) 1 cap PO Q7D [facility] Stop: 07/20/18 10:01 Last Admin: 07/13/18 10:57 Dose: 1 cap Escitalopram Oxalate (Lexapro) 10 mg GT DAILY [facility] Last Admin: 07/15/18 10:36 Dose: 10 mg Gentamicin Sulfate (Gentamicin 0.1%) 0 gm TOP TID [facility] Last Admin: 07/15/18 10:36 Dose: 1 oin Glucagon (Glucagen Diagnostic Kit) 0 mg IM STAT PRN; Protocol PRN Reason: Hypoglycemia Protocol Guaifenesin (Robitussin) 100 mg PO Q4H PRN PRN Reason: Cough Last Admin: 07/15/18 10:42 Dose: 100 mg Hydromorphone HCl (Dilaudid) 1 mg IVP Q3 PRN PRN Reason: Pain, SEVERE (8-10) Last Admin: 07/15/18 10:58 Dose: 1 mg Meropenem 1 gm/ Sodium (Chloride) 100 mls @ 100 mls/hr IVPB Q8H [facility]; Protocol Last Admin: 07/15/18 07:03 Dose: 100 mls/hr Micafungin Sodium 100 mg/ (Sodium Chloride) 100 mls @ 100 mls/hr IV Q24H [facility]; Protocol Last Admin: 07/15/18 00:00 Dose: 100 mls/hr Insulin Human Regular (Novolin R) 0 unit SC ACHS [facility]; Protocol Last Admin: 07/15/18 07:54 Dose: Not Given Ipratropium [place] (Atrovent) 0.5 mg IH RQ6 [facility] Last Admin: 07/15/18 04:55 Dose: Not Given Loperamide HCl (Imodium) 1 mg PO Q2H PRN PRN Reason: Diarrhea Last Admin: 07/15/18 10:44 Dose: 1 mg Loratadine (Claritin) 10 mg PO DAILY [facility] Last Admin: 07/15/18 10:35 Dose: 10 mg Lorazepam (Ativan) 1 mg IVP BID [facility] Last Admin: 07/15/18 10:58 Dose: 1 mg Metoprolol Tartrate (Lopressor) 12.5 mg PEG BID [facility] Last Admin: 07/15/18 10:37 Dose: 12.5 mg Nicotine (Nicoderm Cq) 1 patch TD DAILY [facility] Last Admin: 07/15/18 10:42 Dose: 1 patch Ondansetron HCl (Zofran Inj) 4 mg IVP Q6H PRN PRN Reason: Nausea/Vomiting Last Admin: 07/15/18 04:58 Dose: 4 mg Pantoprazole Sodium (Protonix Susp) 40 mg PO DAILY [facility] Last Admin: 07/15/18 10:42 Dose: 40 mg Saliva Substitute (Mouth Kote 236 Ml) 0 ml MM Q6 PRN PRN Reason: Dry mouth Vitamin A (Vitamin A & D Oint Ud Foilpak) 1 ea TOP Q8 PRN PRN Reason: dry lips Vitamin E (Vitamin E 400 Units Cap) 400 intlu GT DAILY [facility] Last Admin: 07/15/18 10:43 Dose: 400 intlu - Labs Labs: 07/15/18 08:31 07/14/18 08:15 PT 14.3 SECONDS (9.7-12.2) H 06/10/18 07:05 INR 1.3 06/10/18 07:05 APTT 33 SECONDS (21-34) 05/25/18 06:16 - Constitutional Appears: No Acute Distress, Chronically Ill - Head Exam Head Exam: ATRAUMATIC, NORMAL INSPECTION, NORMOCEPHALIC - Eye Exam Eye Exam: EOMI, Normal appearance - ENT Exam ENT Exam: Mucous Membranes Moist, Normal Exam Additional comments: NGT in place - Neck Exam Neck Exam: Full ROM, Normal Inspection - Respiratory Exam Respiratory Exam: Clear to Ausculation Bilateral, NORMAL BREATHING PATTERN. absent: Rales, Rhonchi, Wheezes - Cardiovascular Exam Cardiovascular Exam: REGULAR RHYTHM, +S1, +S2 - GI/Abdominal Exam GI & Abdominal Exam: Soft, Normal Bowel Sounds. absent: Tenderness Additional comments: midline incision with wound vac in place, PEG tube in place - Extremities Exam Extremities Exam: Normal Inspection. absent: Pedal Edema, Tenderness - Back Exam Back Exam: NORMAL INSPECTION - Neurological Exam Neurological Exam: Alert, Oriented x3 - Psychiatric Exam Psychiatric exam: Normal Affect, Normal Mood - Skin Skin Exam: Dry, Intact, Normal Color, Warm Assessment and Plan - Assessment and Plan (Free Text) Plan: Plan: Ischemic bowel disease 2/2 internal hernia producing bowel obstruction Current drains include: NGT (intermittent suction per surgery recs) replaced on 07/09/18 by surgery team, gastrostomy tube (replaced 06/10/18) Latest wound cultures: -Abd incision, Peg incision site => Pseudomonas aeruginosa, sensitive to Meropenem -Per ID: Meropenem 1 g q 8 h (d/c 07/11), Vancomycin 1.5 g IVPB q 12 h (d/c on 07/05/18) -vanco trough 07/05 -- 15.1 -Repeat abd wound cx 07/12 growing gram-neg wolf and yeast; Dr. Rivera notified, advised to obtain stat blood cxs x2 and restart Meropenem Surgery (Dr. Harley) consulted - awaiting Dr Mccray's response on surgical intervention; f/u with surgical team regarding dispo Wound vac to continuous suction, to be replaced Q72hrs (last change was 07/12) Heme/onc (Dr. Cash) consulted for Fe status - repeat ferritin 185, no need for iron infusion at this time, continue to monitor Other cultures: 06/22/18: abd incision => Pseudomonas aeruginosa sensitive to Meropenem 06/22/18: Peg site => Pseudomonas aeruginosa sensitive to Meropenem 05/14/18: Peritoneal fluid => Pseudomonas aeruginosa sensitive to Meropenem 05/23/18: Wound cx => [place]ula albicans 05/15/18, 05/22/18: Blood cx => no growth 05/22/18: Urine cx => no growth 05/31/18: Incision site => Enterococcus faecalis, Acinetobacter baumannii 06/03/18: Stool cxs => No Salmonella, Shigella, or Campylobacter isolates 06/13/18: Repeat wound cx => Coag-neg Staph, Enterococcus raffinosus 07/12/18 Repeat wound cx growing gram-neg wolf + Yeast, repeat blood cxs ordered today, pt restarted on Meropenem as per ID recs 07/15 WBC - 9.6 This morning patient is at 99.1 Antibiotics: Continue Meropenem 1 g q 8 h IVPB ; restarted yesterday as per ID due to pos abd wound cx (07/12) Vancomycin 1.5 g IV q 12 h (started 06/16 at 12 pm), discontinued as per Dr Rivera on 07/05 Cipro 400 mg IV q 12h d/c'd (started 06/02/18, last day 06/16/18) Flagyl 500 mg IVPB q 8 h completed (active from 05/15/18-06/19/18) Micafungin 100mg IV Q24hrs Continue Gentamicin 0.1% TOP TID apply cream to peg tube site F/u vitamin levels and replace as needed: Vit D < 12.8, 75651 U q1 wk x 8 wks B12 707, wnl; repeat B12 508 Folate 12.6, wnl Vit A 42, wnl Alpha vit E 5.6, wnl Zinc level wnl Vit A, B1, B6, E levels reordered on 06/15 Vit B1: inappropriately submitted, 06/01/18 valve acceptable Vit B6: 5.9, wnl Vit A, E collected Repeat Vitamin levels ordered on 07/08, f/u results 07/08: Pre-albumin 11.6, B12 508, 25-OH vit D < 12.8 As per child caregiver recs on 07/11, will adjust Jevity feeds for pt's updated weight for optimal nutrition C/w Tylenol 975 mg liquid q 8h, Dilaudid 1 mg q 3 h prn, Zofran 4 mg IV q 6 h prn Fever possible sepsis - fever 102.9 overnight - tachycardic 114 - abdominal wound culture shows chula and pseudomonas - chest x ray - lungs clear to auscultation b/l, no acute findings - f/u blood cultures from peripheral source and picc line source - picc line might have clots - ordered altaplase (cathflo) 2mg IV once, 2 doses for a double lumen Picc line -f/u sputum cultures -f/u Bl Doppler to rule out DVT -VBG/lactate level - f/u - Normal saline @ 100mls/hr - continue tylenol for fevers Tachycardia, persistent, hx into 110s-130s - possible etiologies include pain, infection, anxiety Today HR - 90, continue to monitor and trend Ativan prn, Dilaudid prn C/w metoprolol tartrate 12.5 mg bid Diarrhea, acute improving - suspect 2/2 PO intake by patient C. Diff (05/22, 05/24, 05/28) neg Stool ova and parasites (05/25/18) neg Stool leukocytes (05/25/18) neg Flagyl course finished Imodium 1 mg PO q 2h prn Anxiety [employer] consulted - pt refusing at this time Psych consulted (Dr. Reyez) - managing Ativan, c/w prn Lexapro 10 mg GT daily (started 05/31) Insomnia - Benadryl d/c'd, clinically not indicated Anemia, acute, stable, pt denies blood in stool Total 2 PRBC (on 05/16) and 4 FFP (on 05/15 and 05/16) 07/14 hb 10.4, hct: 31.3 Iron 16, TIBC 205, % sat 4.7, repeat ferritin 185 after Ferrlecit Monitor CBC q2d Per Dr. Cash, consider Procrit supplementation in attempt to avoid further transfusions if Hgb < 9 Thrombocytosis - suspect reactive to pain, surgery; resolved 07/14 platelets: 304 Monitor CBC q2d DM2, controlled From prior note: admittedly non-compliant, has not taken Januvia for 1 y Accuchecks q6h Hypoglycemic protocol ISS regular HgbA1c 5.8 Hx gastric bypass surgery Hypercholesterolemia, untx LDL < 30, HDL < 23, Chol 59, TG 195 (06/03/18) Hx gastric bypass surgery Questran 4 g PO bid Hx HTN, controlled Since gastric bypass has not taken meds Metoprolol 12.5 mg bid Hx Asthma - Chronic Continue to monitor Atrovent prn C/o productive cough on and off today, Robitussin prn, defer steroids at this time due to concern for wound healing s/p surgical procedures Added Claritin 10 daily for allergy sxs Nicotine use disorder - Chronic From prior note: 1 ppd x 20 y, 1/2 ppd x 3 y C/w Nicoderm patch Electrolyte imbalance - Hypokalemia, Hypomagnesemia; improving F/u am labs, replete as needed Mg 1.6 on 07/14, K 3.8 PPX, Diet, Dispo Hydrocortisone 1% cream top tid for R upper inner arm macular rash - improved Vitamin A+D top q 8h prn for dry lips Saliva substitute q 6 h prn for dry mouth IVF not indicated at this time VTE ppx: Lovenox 40 subQ d, SCDs, encourage ambulation GI ppx: Protonix 40 mg IV bid, Florastor bid Code status: Full code Continue PT services, follow up recs Dispo: Continue to optimize patient for reversal surgery. Dr. Harley to coordinate with Dr. Mccray plan for intervention. Pt to remain inpatient until reversal procedure performed by surgical team. <Wesley Kirby - Last Filed: 08/04/18 13:37> Attending/Attestation - Attestation I have personally seen and examined this patient.: Yes I have fully participated in the care of the patient.: Yes I have reviewed all pertinent clinical information, including history, physical exam and plan: Yes Notes (Text): Ischemic bowel disease 2/2 internal hernia producing bowel obstruction Fever, possible sepsis Chronic pain syndrome blood culture through picc line grew E. faecalis sensitive to vancomycin Tachycardia, persistent, hx into 110s-130s - possible etiologies include pain, infection, anxiety Diarrhea awaiting final decision re surgery to connect stomach with bowel after infection improves
--- NOTE | 2018-07-15 12:07 | CP.PCM.PN ---
Subjective - Date & Time of Evaluation Date of Evaluation: 07/15/18 Time of Evaluation: 14:20 - Subjective Subjective: General surgery progress note for Dr. Harley Pt seen and examined at bedside. Pt had a fever of 102 this AM that resolved with tylenol. Patient denies any pain, or any other symptoms. NGT became disloged last night and was replaced by the overnight medical surgical tech without complication Objective - Vital Signs/Intake and Output Vital Signs (last 24 hours): Temp Pulse Resp BP Pulse Ox 99.3 F 100 H 18 100/67 97 07/15/18 07:00 07/15/18 07:00 07/15/18 07:00 07/15/18 07:00 07/15/18 07:00 Intake and Output: 07/15/18 07/15/18 06:59 18:59 Intake Total 1200 Output Total 355 Balance 845 - Medications Medications: Current Medications Acetaminophen (Tylenol 650mg/20.3ml Solution Ud) 975 mg GT Q8H PRN PRN Reason: Pain, Mild (1-3) Last Admin: 07/14/18 18:07 Dose: 975 mg Benzocaine/Menthol (Cepacol Sore Throat) 1 sravan MT Q2H PRN PRN Reason: Sore Throat Last Admin: 07/15/18 10:35 Dose: 1 sravan Calcium Acetate (Phoslo) 667 mg GT TIDCC [facility] Last Admin: 07/15/18 07:54 Dose: 667 mg Cholestyramine Resin (Questran) 4 gm PO BID [facility] Last Admin: 07/15/18 10:42 Dose: 4 gm Dextrose (Dextrose 50% Inj) 0 ml IV STAT PRN; Protocol PRN Reason: Hypoglycemia Protocol Last Admin: 07/10/18 18:22 Dose: 25 ml Dextrose (Glutose 15) 0 gm PO ONCE PRN; Protocol PRN Reason: Hypoglycemia Protocol Enoxaparin Sodium (Lovenox) 40 mg SC DAILY [facility] Last Admin: 07/15/18 10:37 Dose: 40 mg Ergocalciferol (Drisdol 50,000 Intl Units Cap) 1 cap PO Q7D [facility] Stop: 07/20/18 10:01 Last Admin: 07/13/18 10:57 Dose: 1 cap Escitalopram Oxalate (Lexapro) 10 mg GT DAILY [facility] Last Admin: 07/15/18 10:36 Dose: 10 mg Gentamicin Sulfate (Gentamicin 0.1%) 0 gm TOP TID [facility] Last Admin: 07/15/18 10:36 Dose: 1 oin Glucagon (Glucagen Diagnostic Kit) 0 mg IM STAT PRN; Protocol PRN Reason: Hypoglycemia Protocol Guaifenesin (Robitussin) 100 mg PO Q4H PRN PRN Reason: Cough Last Admin: 07/15/18 10:42 Dose: 100 mg Hydromorphone HCl (Dilaudid) 1 mg IVP Q3 PRN PRN Reason: Pain, SEVERE (8-10) Last Admin: 07/15/18 10:58 Dose: 1 mg Meropenem 1 gm/ Sodium (Chloride) 100 mls @ 100 mls/hr IVPB Q8H [facility]; Protocol Last Admin: 07/15/18 07:03 Dose: 100 mls/hr Micafungin Sodium 100 mg/ (Sodium Chloride) 100 mls @ 100 mls/hr IV Q24H [facility]; Protocol Last Admin: 07/15/18 00:00 Dose: 100 mls/hr Insulin Human Regular (Novolin R) 0 unit SC ACHS [facility]; Protocol Last Admin: 07/15/18 07:54 Dose: Not Given Ipratropium [place] (Atrovent) 0.5 mg IH RQ6 [facility] Last Admin: 07/15/18 04:55 Dose: Not Given Loperamide HCl (Imodium) 1 mg PO Q2H PRN PRN Reason: Diarrhea Last Admin: 07/15/18 10:44 Dose: 1 mg Loratadine (Claritin) 10 mg PO DAILY [facility] Last Admin: 07/15/18 10:35 Dose: 10 mg Lorazepam (Ativan) 1 mg IVP BID [facility] Last Admin: 07/15/18 10:58 Dose: 1 mg Metoprolol Tartrate (Lopressor) 12.5 mg PEG BID [facility] Last Admin: 07/15/18 10:37 Dose: 12.5 mg Nicotine (Nicoderm Cq) 1 patch TD DAILY [facility] Last Admin: 07/15/18 10:42 Dose: 1 patch Ondansetron HCl (Zofran Inj) 4 mg IVP Q6H PRN PRN Reason: Nausea/Vomiting Last Admin: 07/15/18 04:58 Dose: 4 mg Pantoprazole Sodium (Protonix Susp) 40 mg PO DAILY [facility] Last Admin: 07/15/18 10:42 Dose: 40 mg Saliva Substitute (Mouth Kote 236 Ml) 0 ml MM Q6 PRN PRN Reason: Dry mouth Vitamin A (Vitamin A & D Oint Ud Foilpak) 1 ea TOP Q8 PRN PRN Reason: dry lips Vitamin E (Vitamin E 400 Units Cap) 400 intlu GT DAILY [facility] Last Admin: 07/15/18 10:43 Dose: 400 intlu - Labs Labs: 07/15/18 08:31 07/14/18 08:15 PT 14.3 SECONDS (9.7-12.2) H 06/10/18 07:05 INR 1.3 06/10/18 07:05 APTT 33 SECONDS (21-34) 05/25/18 06:16 - Constitutional Appears: Well, Non-toxic, No Acute Distress - Head Exam Head Exam: ATRAUMATIC, NORMOCEPHALIC - Eye Exam Eye Exam: Normal appearance. absent: Conjunctival injection, Scleral icterus - ENT Exam ENT Exam: Mucous Membranes Moist, Normal Oropharynx Additional comments: NGT in place - Respiratory Exam Respiratory Exam: NORMAL BREATHING PATTERN. absent: Accessory Muscle Use, Respiratory Distress - Cardiovascular Exam Cardiovascular Exam: RRR - GI/Abdominal Exam GI & Abdominal Exam: Soft. absent: Distended, Tenderness Additional comments: midline incision with wound vac in place, functioning properly. Wound with no active drainage, surrounding erythema, or fluctuance - Extremities Exam Extremities Exam: absent: Calf Tenderness, Pedal Edema, Tenderness - Neurological Exam Neurological Exam: Alert, Awake, Oriented x3 - Psychiatric Exam Psychiatric exam: Normal Affect, Normal Mood - Skin Skin Exam: Dry, Intact (except as noted above), Normal Color, Warm Assessment and Plan - Assessment and Plan (Free Text) Assessment: 38F with internal hernia POD#62 s/p resection of necrotic bowel, left in discontinuity, and placement of gastrostomy tube, with drainage from midline incision Plan: Continue wound vac to continuous low suction--change 2x/week Continue to F/U ID recs--abx per them Tentative planning for OR in 2-3 weeks for jehovah's witness of continuity with Bariatric surgeon Continue tube feeds Discussed with Dr. Cricket Mo, PGY2
--- NOTE | 2018-07-15 12:50 | CP.PCM.PN ---
Subjective - Date & Time of Evaluation Date of Evaluation: 07/15/18 Time of Evaluation: 12:00 - Subjective Subjective: No complaints. Objective - Vital Signs/Intake and Output Vital Signs (last 24 hours): Temp Pulse Resp BP Pulse Ox 99.3 F 100 H 18 100/67 97 07/15/18 07:00 07/15/18 07:00 07/15/18 07:00 07/15/18 07:00 07/15/18 07:00 Intake and Output: 07/15/18 07/15/18 06:59 18:59 Intake Total 1200 Output Total 355 Balance 845 - Medications Medications: Current Medications Acetaminophen (Tylenol 650mg/20.3ml Solution Ud) 975 mg GT Q8H PRN PRN Reason: Pain, Mild (1-3) Last Admin: 07/14/18 18:07 Dose: 975 mg Benzocaine/Menthol (Cepacol Sore Throat) 1 sravan MT Q2H PRN PRN Reason: Sore Throat Last Admin: 07/15/18 10:35 Dose: 1 sravan Calcium Acetate (Phoslo) 667 mg GT TIDCC [facility] Last Admin: 07/15/18 07:54 Dose: 667 mg Cholestyramine Resin (Questran) 4 gm PO BID [facility] Last Admin: 07/15/18 10:42 Dose: 4 gm Dextrose (Dextrose 50% Inj) 0 ml IV STAT PRN; Protocol PRN Reason: Hypoglycemia Protocol Last Admin: 07/10/18 18:22 Dose: 25 ml Dextrose (Glutose 15) 0 gm PO ONCE PRN; Protocol PRN Reason: Hypoglycemia Protocol Enoxaparin Sodium (Lovenox) 40 mg SC DAILY [facility] Last Admin: 07/15/18 10:37 Dose: 40 mg Ergocalciferol (Drisdol 50,000 Intl Units Cap) 1 cap PO Q7D [facility] Stop: 07/20/18 10:01 Last Admin: 07/13/18 10:57 Dose: 1 cap Escitalopram Oxalate (Lexapro) 10 mg GT DAILY [facility] Last Admin: 07/15/18 10:36 Dose: 10 mg Gentamicin Sulfate (Gentamicin 0.1%) 0 gm TOP TID [facility] Last Admin: 07/15/18 10:36 Dose: 1 oin Glucagon (Glucagen Diagnostic Kit) 0 mg IM STAT PRN; Protocol PRN Reason: Hypoglycemia Protocol Guaifenesin (Robitussin) 100 mg PO Q4H PRN PRN Reason: Cough Last Admin: 07/15/18 10:42 Dose: 100 mg Hydromorphone HCl (Dilaudid) 1 mg IVP Q3 PRN PRN Reason: Pain, SEVERE (8-10) Last Admin: 07/15/18 10:58 Dose: 1 mg Meropenem 1 gm/ Sodium (Chloride) 100 mls @ 100 mls/hr IVPB Q8H [facility]; Protocol Last Admin: 07/15/18 07:03 Dose: 100 mls/hr Micafungin Sodium 100 mg/ (Sodium Chloride) 100 mls @ 100 mls/hr IV Q24H [facility]; Protocol Last Admin: 07/15/18 00:00 Dose: 100 mls/hr Insulin Human Regular (Novolin R) 0 unit SC ACHS [facility]; Protocol Last Admin: 07/15/18 12:31 Dose: Not Given Ipratropium [place] (Atrovent) 0.5 mg IH RQ6 [facility] Last Admin: 07/15/18 04:55 Dose: Not Given Loperamide HCl (Imodium) 1 mg PO Q2H PRN PRN Reason: Diarrhea Last Admin: 07/15/18 10:44 Dose: 1 mg Loratadine (Claritin) 10 mg PO DAILY [facility] Last Admin: 07/15/18 10:35 Dose: 10 mg Lorazepam (Ativan) 1 mg IVP BID [facility] Last Admin: 07/15/18 10:58 Dose: 1 mg Metoprolol Tartrate (Lopressor) 12.5 mg PEG BID [facility] Last Admin: 07/15/18 10:37 Dose: 12.5 mg Nicotine (Nicoderm Cq) 1 patch TD DAILY [facility] Last Admin: 07/15/18 10:42 Dose: 1 patch Ondansetron HCl (Zofran Inj) 4 mg IVP Q6H PRN PRN Reason: Nausea/Vomiting Last Admin: 07/15/18 04:58 Dose: 4 mg Pantoprazole Sodium (Protonix Susp) 40 mg PO DAILY [facility] Last Admin: 07/15/18 10:42 Dose: 40 mg Saliva Substitute (Mouth Kote 236 Ml) 0 ml MM Q6 PRN PRN Reason: Dry mouth Vitamin A (Vitamin A & D Oint Ud Foilpak) 1 ea TOP Q8 PRN PRN Reason: dry lips Vitamin E (Vitamin E 400 Units Cap) 400 intlu GT DAILY [facility] Last Admin: 07/15/18 10:43 Dose: 400 intlu - Labs Labs: 07/15/18 08:31 07/14/18 08:15 PT 14.3 SECONDS (9.7-12.2) H 06/10/18 07:05 INR 1.3 06/10/18 07:05 APTT 33 SECONDS (21-34) 05/25/18 06:16 - Head Exam Head Exam: ATRAUMATIC - Eye Exam Eye Exam: Normal appearance - ENT Exam ENT Exam: Mucous Membranes Dry - Respiratory Exam Respiratory Exam: NORMAL BREATHING PATTERN - Cardiovascular Exam Cardiovascular Exam: +S1, +S2 - GI/Abdominal Exam GI & Abdominal Exam: Normal Bowel Sounds Assessment and Plan (1) Anemia Assessment & Plan: iron deficiency anemia resolved s/p IV iron anemia of chronic disease; will consider Procrit supplementation in an attempt to avoid further transfusions if hgb < 9 FOBT positive transfuse PRN Status: Acute
[2018-07-15] MEDS: Acetaminophen 650mg/20.3ml solution UD GT PRN ×2 (13:59→21:55)
[2018-07-15] MEDS: Sodium Chloride 0.9% 1,000 ML IV SCH (14:01)
[2018-07-15 14:28] LABS: VENOUS BLOOD GAS PCO2 39 mmHg (40-60); VENOUS BLOOD GAS PO2 46 mm/Hg (30-55); VENOUS BLOOD PH 7.45 (7.32-7.43)
--- NOTE | 2018-07-15 17:26 | CP.PCM.PN ---
Subjective - Date & Time of Evaluation Date of Evaluation: 07/15/18 Time of Evaluation: 17:00 - Subjective Subjective: dictated Objective - Vital Signs/Intake and Output Vital Signs (last 24 hours): Temp Pulse Resp BP Pulse Ox 102.2 F H 115 H 20 109/75 94 L 07/15/18 13:59 07/15/18 13:38 07/15/18 13:38 07/15/18 13:38 07/15/18 13:38 Intake and Output: 07/15/18 07/15/18 06:59 18:59 Intake Total 1200 168 Output Total 355 750 Balance 845 -582 - Medications Medications: Current Medications Acetaminophen (Tylenol 650mg/20.3ml Solution Ud) 975 mg GT Q8H PRN PRN Reason: Pain, Mild (1-3) Last Admin: 07/15/18 13:59 Dose: 975 mg Benzocaine/Menthol (Cepacol Sore Throat) 1 sravan MT Q2H PRN PRN Reason: Sore Throat Last Admin: 07/15/18 10:35 Dose: 1 sravan Calcium Acetate (Phoslo) 667 mg GT TIDCC [facility] Last Admin: 07/15/18 14:00 Dose: 667 mg Cholestyramine Resin (Questran) 4 gm PO BID [facility] Last Admin: 07/15/18 10:42 Dose: 4 gm Dextrose (Dextrose 50% Inj) 0 ml IV STAT PRN; Protocol PRN Reason: Hypoglycemia Protocol Last Admin: 07/10/18 18:22 Dose: 25 ml Dextrose (Glutose 15) 0 gm PO ONCE PRN; Protocol PRN Reason: Hypoglycemia Protocol Enoxaparin Sodium (Lovenox) 40 mg SC DAILY [facility] Last Admin: 07/15/18 10:37 Dose: 40 mg Ergocalciferol (Drisdol 50,000 Intl Units Cap) 1 cap PO Q7D [facility] Stop: 07/20/18 10:01 Last Admin: 07/13/18 10:57 Dose: 1 cap Escitalopram Oxalate (Lexapro) 10 mg GT DAILY [facility] Last Admin: 07/15/18 10:36 Dose: 10 mg Gentamicin Sulfate (Gentamicin 0.1%) 0 gm TOP TID [facility] Last Admin: 07/15/18 14:00 Dose: 1 oin Glucagon (Glucagen Diagnostic Kit) 0 mg IM STAT PRN; Protocol PRN Reason: Hypoglycemia Protocol Guaifenesin (Robitussin) 100 mg PO Q4H PRN PRN Reason: Cough Last Admin: 07/15/18 10:42 Dose: 100 mg Hydromorphone HCl (Dilaudid) 1 mg IVP Q3 PRN PRN Reason: Pain, SEVERE (8-10) Last Admin: 07/15/18 17:00 Dose: 1 mg Meropenem 1 gm/ Sodium (Chloride) 100 mls @ 100 mls/hr IVPB Q8H [facility]; Protocol Last Admin: 07/15/18 14:50 Dose: 100 mls/hr Micafungin Sodium 100 mg/ (Sodium Chloride) 100 mls @ 100 mls/hr IV Q24H [facility]; P rotocol Last Admin: 07/15/18 00:00 Dose: 100 mls/hr Sodium Chloride (Sodium Chloride 0.9%) 1,000 mls @ 100 mls/hr IV .Q10H [facility] Last Admin: 07/15/18 14:01 Dose: 100 mls/hr Insulin Human Regular (Novolin R) 0 unit SC ACHS [facility]; Protocol Last Admin: 07/15/18 12:31 Dose: Not Given Ipratropium [place] (Atrovent) 0.5 mg IH RQ6 [facility] Last Admin: 07/15/18 04:55 Dose: Not Given Loperamide HCl (Imodium) 1 mg PO Q2H PRN PRN Reason: Diarrhea Last Admin: 07/15/18 10:44 Dose: 1 mg Loratadine (Claritin) 10 mg PO DAILY [facility] Last Admin: 07/15/18 10:35 Dose: 10 mg Lorazepam (Ativan) 1 mg IVP BID [facility] Last Admin: 07/15/18 10:58 Dose: 1 mg Metoprolol Tartrate (Lopressor) 12.5 mg PEG BID [facility] Last Admin: 07/15/18 10:37 Dose: 12.5 mg Nicotine (Nicoderm Cq) 1 patch TD DAILY [facility] Last Admin: 07/15/18 10:42 Dose: 1 patch Ondansetron HCl (Zofran Inj) 4 mg IVP Q6H PRN PRN Reason: Nausea/Vomiting Last Admin: 07/15/18 14:20 Dose: 4 mg Pantoprazole Sodium (Protonix Susp) 40 mg PO DAILY [facility] Last Admin: 07/15/18 10:42 Dose: 40 mg Saliva Substitute (Mouth Kote 236 Ml) 0 ml MM Q6 PRN PRN Reason: Dry mouth Vitamin A (Vitamin A & D Oint Ud Foilpak) 1 ea TOP Q8 PRN PRN Reason: dry lips Vitamin E (Vitamin E 400 Units Cap) 400 intlu GT DAILY [facility] Last Admin: 07/15/18 10:43 Dose: 400 intlu - Labs Labs: 07/15/18 08:31 07/14/18 08:15 PT 14.3 SECONDS (9.7-12.2) H 06/10/18 07:05 INR 1.3 06/10/18 07:05 APTT 33 SECONDS (21-34) 05/25/18 06:16
[2018-07-15 20:22] LABS: SQUAMOUS EPITHIAL 11 /hpf (0-5); URINE BACTERIA OCC (<OCC); URINE BILIRUBIN NEGATIVE (NEGATIVE); URINE BLOOD NEGATIVE (NEGATIVE); URINE CLARITY Hazy (Clear); URINE COLOR Amber (YELLOW); URINE GLUCOSE (UA) 1+ mg/dL (Normal); URINE LEUKOCYTE ESTERASE TRACE Leu/uL (Negative); URINE PROTEIN 1+ mg/dL (NEGATIVE); URINE UROBILINOGEN NORMAL mg/dL (0.2-1.0)
[2018-07-15] MEDS: Micafungin 100 MG in Sodium Chloride 0.9% 100 ML IV SCH ×2 (22:08)
--- NOTE | 2018-07-15 23:43 | PN ---
DATE: 07/15/2018 SUBJECTIVE: The patient states she ran of fever. She did have 102.2 today. Her heart rate is 112. Blood pressure is 96/61, respirations are 20. She is having this midline wound drained into the vacuum which is still draining. She denies any abdominal pain. NG tube became dislodged and was replaced this morning by the surgical services tech. Had a PICC line. She is status post flushed. Having fevers. PHYSICAL EXAMINATION: HEENT: Head is atraumatic. NECK: Supple. LUNGS: Clear. HEART: S1 and S2, regular. She is tachycardic as usual. ABDOMEN: Has two sets, the jejunostomy tube site which has very minimal drainage and the other VAC is connected to the other wound. EXTREMITIES: Have no edema. LABORATORY DATA: Labs are noted. White count is 9.6, hemoglobin 10, hematocrit 30, and platelet count is 246. ASSESSMENT AND PLAN: Last culture was Pseudomonas and Yudith and I had placed her on Mycamine and meropenem, so she is on two antibiotics and still running fevers. We have to look into peripherally inserted central catheter line infection, abdominal infection. Need again extensive septic workup as she has been on antibiotics. Also to look for Clostridium difficile if she has any diarrhea. Her white count was, however, normal today. I would first think the peripherally inserted central catheter line should be assessed and it could be a peripherally inserted central catheter line infection and to get one blood culture through the peripherally inserted central catheter line and one peripheral, as the blood cultures were not done and will order some septic workup right now. Guero Rivera MD
[2018-07-16] MEDS: Ipratropium 0.02% Inhal Soln (0.5 mg/2.5 ml) UD IH SCH ×4 (01:18→22:11)
[2018-07-16] MEDS: Sodium Chloride 0.9% 1,000 ML IV SCH ×4 (04:15→20:45)
[2018-07-16] MEDS: Acetaminophen 650mg/20.3ml solution UD GT PRN ×3 (05:16→21:50)
[2018-07-16] MEDS: Meropenem 1 GM in Sodium Chloride 0.9% 100 ML IVPB SCH ×2 (06:55→16:22)
[2018-07-16 08:10] LABS: ALB/GLOB RATIO 0.9 (1.0-2.1); ALBUMIN 2.6 g/dL (3.5-5.0); ALT/SGPT 17 U/L (9-52); AST/SGOT 14 U/L (14-36); BLOOD UREA NITROGEN 9 mg/dL (7-17); CALCIUM 7.9 mg/dl (8.6-10.4); GFR NON-AFRICAN AMERICAN > 60
[2018-07-16] MEDS: (Novolin R) Insulin Human Regular 100 units/ml vial SC SCH ×4 (08:19→22:29)
[2018-07-16] MEDS: Pantoprazole 40 mg Susp UD PO SCH (09:14)
[2018-07-16] MEDS: guaiFENesin 100 mg/5 ml Syrup UD PO PRN ×3 (09:14→21:51)
[2018-07-16] MEDS: GENTAMICIN 0.1% TOP SCH ×3 (09:14→18:27)
[2018-07-16] MEDS: Enoxaparin 40 mg Syringe SC SCH (09:14)
[2018-07-16] MEDS: Cholestyramine 4 gm/Pkt UD PO SCH ×2 (09:14→18:12)
--- NOTE | 2018-07-16 11:42 | CP.PCM.PN ---
Subjective - Date & Time of Evaluation Date of Evaluation: 07/16/18 Time of Evaluation: 07:40 - Subjective Subjective: General surgery progress note for Dr. Harley Pt seen and examined this AM. pt had a fever of 102 yesterday afternoon and overnight. Patient denies any abdominal pain, nausea, vomiting, persistent unchanged diarrhea. Patient reports a productive cough but no other symptoms, wound vac functining well Objective - Vital Signs/Intake and Output Vital Signs (last 24 hours): Temp Pulse Resp BP Pulse Ox 98.5 F 62 20 101/70 100 07/16/18 07:00 07/16/18 07:00 07/16/18 07:00 07/16/18 07:00 07/16/18 07:00 Intake and Output: 07/16/18 07/16/18 06:59 18:59 Intake Total 800 Output Total 550 Balance 250 - Medications Medications: Current Medications Acetaminophen (Tylenol 650mg/20.3ml Solution Ud) 975 mg GT Q8H PRN PRN Reason: Pain, Mild (1-3) Last Admin: 07/16/18 05:16 Dose: 975 mg Benzocaine/Menthol (Cepacol Sore Throat) 1 sravan MT Q2H PRN PRN Reason: Sore Throat Last Admin: 07/15/18 10:35 Dose: 1 sravan Calcium Acetate (Phoslo) 667 mg GT TIDCC [facility] Last Admin: 07/16/18 08:31 Dose: 667 mg Cholestyramine Resin (Questran) 4 gm PO BID [facility] Last Admin: 07/16/18 09:14 Dose: 4 gm Dextrose (Dextrose 50% Inj) 0 ml IV STAT PRN; Protocol PRN Reason: Hypoglycemia Protocol Last Admin: 07/10/18 18:22 Dose: 25 ml Dextrose (Glutose 15) 0 gm PO ONCE PRN; Protocol PRN Reason: Hypoglycemia Protocol Enoxaparin Sodium (Lovenox) 40 mg SC DAILY [facility] Last Admin: 07/16/18 09:14 Dose: 40 mg Ergocalciferol (Drisdol 50,000 Intl Units Cap) 1 cap PO Q7D [facility] Stop: 07/20/18 10:01 Last Admin: 07/13/18 10:57 Dose: 1 cap Escitalopram Oxalate (Lexapro) 10 mg GT DAILY [facility] Last Admin: 07/16/18 09:14 Dose: 10 mg Gentamicin Sulfate (Gentamicin 0.1%) 0 gm TOP TID [facility] Last Admin: 07/16/18 09:14 Dose: 1 oin Glucagon (Glucagen Diagnostic Kit) 0 mg IM STAT PRN; Protocol PRN Reason: Hypoglycemia Protocol Guaifenesin (Robitussin) 100 mg PO Q4H PRN PRN Reason: Cough Last Admin: 07/16/18 09:14 Dose: 100 mg Hydromorphone HCl (Dilaudid) 1 mg IVP Q3 PRN PRN Reason: Pain, SEVERE (8-10) Last Admin: 07/16/18 08:31 Dose: 1 mg Meropenem 1 gm/ Sodium (Chloride) 100 mls @ 100 mls/hr IVPB Q8H [facility]; Protocol Last Admin: 07/16/18 06:55 Dose: 100 mls/hr Micafungin Sodium 100 mg/ (Sodium Chloride) 100 mls @ 100 mls/hr IV Q24H [facility]; Protocol Last Admin: 07/15/18 22:08 Dose: 100 mls/hr Sodium Chloride (Sodium Chloride 0.9%) 1,000 mls @ 100 mls/hr IV .Q10H [facility] Last Admin: 07/16/18 09:15 Dose: Not Given Insulin Human Regular (Novolin R) 0 unit SC ACHS [facility]; Protocol Last Admin: 07/16/18 11:38 Dose: Not Given Ipratropium [place] (Atrovent) 0.5 mg IH RQ6 [facility] Last Admin: 07/16/18 08:48 Dose: 0.5 mg Loperamide HCl (Imodium) 1 mg PO Q2H PRN PRN Reason: Diarrhea Last Admin: 07/15/18 10:44 Dose: 1 mg Loratadine (Claritin) 10 mg PO DAILY [facility] Last Admin: 07/16/18 09:13 Dose: 10 mg Lorazepam (Ativan) 1 mg IVP BID [facility] Last Admin: 07/16/18 09:13 Dose: 1 mg Metoprolol Tartrate (Lopressor) 12.5 mg PEG BID [facility] Last Admin: 07/16/18 09:13 Dose: 12.5 mg Nicotine (Nicoderm Cq) 1 patch TD DAILY [facility] Last Admin: 07/16/18 09:15 Dose: 1 patch Ondansetron HCl (Zofran Inj) 4 mg IVP Q6H PRN PRN Reason: Nausea/Vomiting Last Admin: 07/16/18 09:13 Dose: 4 mg Pantoprazole Sodium (Protonix Susp) 40 mg PO DAILY [facility] Last Admin: 07/16/18 09:14 Dose: 40 mg Saliva Substitute (Mouth Kote 236 Ml) 0 ml MM Q6 PRN PRN Reason: Dry mouth Vitamin A (Vitamin A & D Oint Ud Foilpak) 1 ea TOP Q8 PRN PRN Reason: dry lips Vitamin E (Vitamin E 400 Units Cap) 400 intlu GT DAILY [facility] Last Admin: 07/15/18 10:43 Dose: 400 intlu - Labs Labs: 07/15/18 08:31 07/16/18 07:03 PT 14.3 SECONDS (9.7-12.2) H 06/10/18 07:05 INR 1.3 06/10/18 07:05 APTT 33 SECONDS (21-34) 05/25/18 06:16 - Constitutional Appears: Well, Non-toxic, No Acute Distress - Head Exam Head Exam: ATRAUMATIC, NORMOCEPHALIC - Eye Exam Eye Exam: Normal appearance. absent: Conjunctival injection, Scleral icterus - ENT Exam ENT Exam: Mucous Membranes Moist, Normal Oropharynx - Respiratory Exam Respiratory Exam: NORMAL BREATHING PATTERN. absent: Accessory Muscle Use, Respiratory Distress - Cardiovascular Exam Cardiovascular Exam: Tachycardia - GI/Abdominal Exam GI & Abdominal Exam: Soft. 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 diff in addition to blood cul tures/sputum cultures ordered by ID Will F/U ID recs continue antibiotics and PRN tylenol for fevers Continue wound vac to continuous suction Discussed with Dr. Cricket Mo, PGY2
--- NOTE | 2018-07-16 14:24 | CP.PCM.PN ---
Subjective - Date & Time of Evaluation Date of Evaluation: 07/16/18 Time of Evaluation: 14:00 - Subjective Subjective: dictated Objective - Vital Signs/Intake and Output Vital Signs (last 24 hours): Temp Pulse Resp BP Pulse Ox 103.1 F H 62 20 101/70 100 07/16/18 14:04 07/16/18 07:00 07/16/18 07:00 07/16/18 07:00 07/16/18 07:00 Intake and Output: 07/16/18 07/16/18 06:59 18:59 Intake Total 800 Output Total 550 Balance 250 - Medications Medications: Current Medications Acetaminophen (Tylenol 650mg/20.3ml Solution Ud) 975 mg GT Q8H PRN PRN Reason: Pain, Mild (1-3) Last Admin: 07/16/18 14:04 Dose: 975 mg Benzocaine/Menthol (Cepacol Sore Throat) 1 sravan MT Q2H PRN PRN Reason: Sore Throat Last Admin: 07/15/18 10:35 Dose: 1 sravan Calcium Acetate (Phoslo) 667 mg GT TIDCC [facility] Last Admin: 07/16/18 11:46 Dose: 667 mg Cholestyramine Resin (Questran) 4 gm PO BID [facility] Last Admin: 07/16/18 09:14 Dose: 4 gm Dextrose (Dextrose 50% Inj) 0 ml IV STAT PRN; Protocol PRN Reason: Hypoglycemia Protocol Last Admin: 07/10/18 18:22 Dose: 25 ml Dextrose (Glutose 15) 0 gm PO ONCE PRN; Protocol PRN Reason: Hypoglycemia Protocol Enoxaparin Sodium (Lovenox) 40 mg SC DAILY [facility] Last Admin: 07/16/18 09:14 Dose: 40 mg Ergocalciferol (Drisdol 50,000 Intl Units Cap) 1 cap PO Q7D [facility] Stop: 07/20/18 10:01 Last Admin: 07/13/18 10:57 Dose: 1 cap Escitalopram Oxalate (Lexapro) 10 mg GT DAILY [facility] Last Admin: 07/16/18 09:14 Dose: 10 mg Gentamicin Sulfate (Gentamicin 0.1%) 0 gm TOP TID [facility] Last Admin: 07/16/18 14:13 Dose: 1 oin Glucagon (Glucagen Diagnostic Kit) 0 mg IM STAT PRN; Protocol PRN Reason: Hypoglycemia Protocol Guaifenesin (Robitussin) 100 mg PO Q4H PRN PRN Reason: Cough Last Admin: 07/16/18 09:14 Dose: 100 mg Hydromorphone HCl (Dilaudid) 1 mg IVP Q3 PRN PRN Reason: Pain, SEVERE (8-10) Last Admin: 07/16/18 11:46 Dose: 1 mg Meropenem 1 gm/ Sodium (Chloride) 100 mls @ 100 mls/hr IVPB Q8H [facility]; Protocol Last Admin: 07/16/18 06:55 Dose: 100 mls/hr Micafungin Sodium 100 mg/ (Sodium Chloride) 100 mls @ 100 mls/hr IV Q24H [facility]; Protocol Last Admin: 07/15/18 22:08 Dose: 100 mls/hr Sodium Chloride (Sodium Chloride 0.9%) 1,000 mls @ 100 mls/hr IV .Q10H [facility] Last Admin: 07/16/18 14:04 Dose: 100 mls/hr Insulin Human Regular (Novolin R) 0 unit SC ACHS [facility]; Protocol Last Admin: 07/16/18 11:38 Dose: Not Given Ipratropium [place] (Atrovent) 0.5 mg IH RQ6 [facility] Last Admin: 07/16/18 14:01 Dose: 0.5 mg Loperamide HCl (Imodium) 1 mg PO Q2H PRN PRN Reason: Diarrhea Last Admin: 07/15/18 10:44 Dose: 1 mg Loratadine (Claritin) 10 mg PO DAILY [facility] Last Admin: 07/16/18 09:13 Dose: 10 mg Lorazepam (Ativan) 1 mg IVP BID [facility] Last Admin: 07/16/18 09:13 Dose: 1 mg Metoprolol Tartrate (Lopressor) 12.5 mg PEG BID [facility] Last Admin: 07/16/18 09:13 Dose: 12.5 mg Nicotine (Nicoderm Cq) 1 patch TD DAILY [facility] Last Admin: 07/16/18 09:15 Dose: 1 patch Ondansetron HCl (Zofran Inj) 4 mg IVP Q6H PRN PRN Reason: Nausea/Vomiting Last Admin: 07/16/18 09:13 Dose: 4 mg Pantoprazole Sodium (Protonix Susp) 40 mg PO DAILY [facility] Last Admin: 07/16/18 09:14 Dose: 40 mg Saliva Substitute (Mouth Kote 236 Ml) 0 ml MM Q6 PRN PRN Reason: Dry mouth Vitamin A (Vitamin A & D Oint Ud Foilpak) 1 ea TOP Q8 PRN PRN Reason: dry lips Vitamin E (Vitamin E 400 Units Cap) 400 intlu GT DAILY [facility] Last Admin: 07/16/18 11:00 Dose: 400 intlu - Labs Labs: 07/15/18 08:31 07/16/18 07:03 PT 14.3 SECONDS (9.7-12.2) H 06/10/18 07:05 INR 1.3 06/10/18 07:05 APTT 33 SECONDS (21-34) 05/25/18 06:16
--- NOTE | 2018-07-16 17:56 | CP.PCM.PN ---
Subjective - Date & Time of Evaluation Date of Evaluation: 07/16/18 Time of Evaluation: 07:45 - Subjective Subjective: PGY-[address] Weinstein (hospitalist) Patient is seen and examined at bedside. Patient state she had another episode of fever in the evening. Patient continues to feel body aches and coughing. Patient admits to chills. Patient denies chest pain, shortness of breath, abdominal pain, nausea or vomiting. NGT output overnight was 500 cc and wound vac was 200cc. Objective - Vital Signs/Intake and Output Vital Signs (last 24 hours): Temp Pulse Resp BP Pulse Ox 100.9 F H 116 H 20 108/75 96 07/16/18 15:31 07/16/18 15:31 07/16/18 15:31 07/16/18 15:31 07/16/18 15:31 Intake and Output: 07/16/18 07/16/18 06:59 18:59 Intake Total 800 Output Total 550 550 Balance 250 -550 - Medications Medications: Current Medications Acetaminophen (Tylenol 650mg/20.3ml Solution Ud) 975 mg GT Q8H PRN PRN Reason: Pain, Mild (1-3) Last Admin: 07/16/18 14:04 Dose: 975 mg Benzocaine/Menthol (Cepacol Sore Throat) 1 sravan MT Q2H PRN PRN Reason: Sore Throat Last Admin: 07/15/18 10:35 Dose: 1 sravan Calcium Acetate (Phoslo) 667 mg GT TIDCC [facility] Last Admin: 07/16/18 11:46 Dose: 667 mg Cholestyramine Resin (Questran) 4 gm PO BID [facility] Last Admin: 07/16/18 09:14 Dose: 4 gm Dextrose (Dextrose 50% Inj) 0 ml IV STAT PRN; Protocol PRN Reason: Hypoglycemia Protocol Last Admin: 07/10/18 18:22 Dose: 25 ml Dextrose (Glutose 15) 0 gm PO ONCE PRN; Protocol PRN Reason: Hypoglycemia Protocol Enoxaparin Sodium (Lovenox) 40 mg SC DAILY [facility] Last Admin: 07/16/18 09:14 Dose: 40 mg Ergocalciferol (Drisdol 50,000 Intl Units Cap) 1 cap PO Q7D [facility] Stop: 07/20/18 10:01 Last Admin: 07/13/18 10:57 Dose: 1 cap Escitalopram Oxalate (Lexapro) 10 mg GT DAILY [facility] Last Admin: 07/16/18 09:14 Dose: 10 mg Gentamicin Sulfate (Gentamicin 0.1%) 0 gm TOP TID [facility] Last Admin: 07/16/18 14:13 Dose: 1 oin Glucagon (Glucagen Diagnostic Kit) 0 mg IM STAT PRN; Protocol PRN Reason: Hypoglycemia Protocol Guaifenesin (Robitussin) 100 mg PO Q4H PRN PRN Reason: Cough Last Admin: 07/16/18 09:14 Dose: 100 mg Hydromorphone HCl (Dilaudid) 1 mg IVP Q3 PRN PRN Reason: Pain, SEVERE (8-10) Last Admin: 07/16/18 14:46 Dose: 1 mg Meropenem 1 gm/ Sodium (Chloride) 100 mls @ 100 mls/hr IVPB Q8H [facility]; Protocol Last Admin: 07/16/18 16:22 Dose: 100 mls/hr Micafungin Sodium 100 mg/ (Sodium Chloride) 100 mls @ 100 mls/hr IV Q24H [facility]; Protocol Last Admin: 07/15/18 22:08 Dose: 100 mls/hr Sodium Chloride (Sodium Chloride 0.9%) 1,000 mls @ 100 mls/hr IV .Q10H [facility] Last Admin: 07/16/18 14:04 Dose: 100 mls/hr Vancomycin HCl 1,000 mg/ (Sodium Chloride) 200 mls @ 133.333 mls/hr IVPB Q12H [facility]; Protocol Insulin Human Regular (Novolin R) 0 unit SC ACHS [facility]; Protocol Last Admin: 07/16/18 11:38 Dose: Not Given Ipratropium [place] (Atrovent) 0.5 mg IH RQ6 [facility] Last Admin: 07/16/18 14:01 Dose: 0.5 mg Loperamide HCl (Imodium) 1 mg PO Q2H PRN PRN Reason: Diarrhea Last Admin: 07/15/18 10:44 Dose: 1 mg Loratadine (Claritin) 10 mg PO DAILY [facility] Last Admin: 07/16/18 09:13 Dose: 10 mg Lorazepam (Ativan) 1 mg IVP BID [facility] Last Admin: 07/16/18 09:13 Dose: 1 mg Metoprolol Tartrate (Lopressor) 12.5 mg PEG BID [facility] Last Admin: 07/16/18 09:13 Dose: 12.5 mg Nicotine (Nicoderm Cq) 1 patch TD DAILY [facility] Last Admin: 07/16/18 09:15 Dose: 1 patch Ondansetron HCl (Zofran Inj) 4 mg IVP Q6H PRN PRN Reason: Nausea/Vomiting Last Admin: 07/16/18 09:13 Dose: 4 mg Pantoprazole Sodium (Protonix Susp) 40 mg PO DAILY [facility] Last Admin: 07/16/18 09:14 Dose: 40 mg Saliva Substitute (Mouth Kote 236 Ml) 0 ml MM Q6 PRN PRN Reason: Dry mouth Vitamin A (Vitamin A & D Oint Ud Foilpak) 1 ea TOP Q8 PRN PRN Reason: dry lips Vitamin E (Vitamin E 400 Units Cap) 400 intlu GT DAILY [facility] Last Admin: 07/16/18 11:00 Dose: 400 intlu - Labs Labs: 07/15/18 08:31 07/16/18 07:03 PT 14.3 SECONDS (9.7-12.2) H 06/10/18 07:05 INR 1.3 06/10/18 07:05 APTT 33 SECONDS (21-34) 05/25/18 06:16 - Constitutional Appears: No Acute Distress, Chronically Ill - Head Exam Head Exam: ATRAUMATIC, NORMAL INSPECTION, NORMOCEPHALIC - Eye Exam Eye Exam: EOMI, Normal appearance - ENT Exam ENT Exam: Mucous Membranes Moist, Normal Exam Additional comments: NGT in place - Neck Exam Neck Exam: Normal Inspection - Respiratory Exam Respiratory Exam: Clear to Ausculation Bilateral, NORMAL BREATHING PATTERN - Cardiovascular Exam Cardiovascular Exam: Tachycardia, +S1, +S2 - GI/Abdominal Exam GI & Abdominal Exam: Soft, Normal Bowel Sounds. absent: Distended, Firm, Guarding, Rigid, Tenderness Additional comments: wound vac in place over midline incision, no leakage, clean and dry, and functio darrel. - Extremities Exam Extremities Exam: Full ROM, Normal Inspection. 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 Rivera notified, advised to obtain stat blood cxs x2 and restart Meropenem Surgery (Dr. Harley) consulted - awaiting Dr Mccray's response on surgical intervention; f/u with surgical team regarding dispo Wound vac to continuous suction, to be replaced Q72hrs Heme/onc (Dr. Cash) consulted for Fe status - repeat ferritin 185, no need for iron infusion at this time, continue to monitor Other cultures: 06/22/18: abd incision => Pseudomonas aeruginosa sensitive to Meropenem 06/22/18: Peg site => Pseudomonas aeruginosa sensitive to Meropenem 05/14/18: Peritoneal fluid => Pseudomonas aeruginosa sensitive to Meropenem 05/23/18: Wound cx => [place] albicans 05/15/18, 05/22/18: Blood cx => no growth 05/22/18: Urine cx => no growth 05/31/18: Incision site => Enterococcus faecalis, Acinetobacter baumannii 06/03/18: Stool cxs => No Salmonella, Shigella, or Campylobacter isolates 06/13/18: Repeat wound cx => Coag-neg Staph, Enterococcus raffinosus 07/12/18 Repeat wound cx growing gram-neg wolf + Yeast, repeat blood cxs ordered today, pt restarted on Meropenem as per ID recs 07/15 WBC - 9.6 temperature this morning is 98.6 - will continue to monitor temperature Antibiotics: Continue Meropenem 1 g q 8 h IVPB ; restarted yesterday as per ID due to pos abd wound cx (07/12) Vancomycin 1 g IV q 12 h started 07/16 Cipro 400 mg IV q 12h d/c'd (started 06/02/18, last day 06/16/18) Flagyl 500 mg IVPB q 8 h completed (active from 05/15/18-06/19/18) Micafungin 100mg IV Q24hrs Continue Gentamicin 0.1% TOP TID apply cream to peg tube site F/u vitamin levels and replace as needed: Vit D < 12.8, 54468 U q1 wk x 8 wks B12 707, wnl; repeat B12 508 Folate 12.6, wnl Vit A 42, wnl Alpha vit E 5.6, wnl Zinc level wnl Vit A, B1, B6, E levels reordered on 06/15 Vit B1: inappropriately submitted, 06/01/18 valve acceptable Vit B6: 5.9, wnl Vit A, E collected Repeat Vitamin levels ordered on 07/08, f/u results 07/08: Pre-albumin 11.6, B12 508, 25-OH vit D < 12.8 As per monument carver recs on 07/11, will adjust Jevity feeds for pt's updated weight for optimal nutrition C/w Tylenol 975 mg liquid q 8h, Dilaudid 1 mg q 3 h prn, Zofran 4 mg IV q 6 h prn Fever possible sepsis - fever 101.9 overnight, currently afebrile (am) - abdominal wound culture shows chula and pseudomonas - chest x ray - lungs clear to auscultation b/l, no acute findings - f/u blood cultures from peripheral source and picc line source - no growth after 24 hours - picc line might have clots - ordered altaplase (cathflo) 2mg IV once, 2 doses for a double lumen Picc line -f/u sputum cultures - pending - Urine culture - no growth, final -f/u Bl Doppler to rule out DVT - pending official report -VBG/lactate level - ph: 7.45, pCO2: 39, lactate 0.9 - Normal saline @ 100mls/hr - continue tylenol for fevers -abx: Meropenem 1 g q 8 h IVPB Vancomycin 1 g IV q 12 h - follow Dr Rivera recs - possible CT abdomen to assess for source of infection. - Ordered Am lab (CBC with diff) Tachycardia, persistent, hx into 110s-130s - possible etiologies include pain, infection, anxiety Today HR - 62, continue to monitor and trend Ativan prn, Dilaudid prn C/w metoprolol tartrate 12.5 mg bid Diarrhea, acute improving - suspect 2/2 PO intake by patient C. Diff (05/22, 05/24, 05/28) neg Stool ova and parasites (05/25/18) neg Stool leukocytes (05/25/18) neg Imodium 1 mg PO q 2h prn Anxiety Agile Coach consulted - pt refusing at this time Psych consulted (Dr. Reyez) - managing Ativan, c/w prn Lexapro 10 mg GT daily (started 05/31) Insomnia - Benadryl d/c'd, clinically not indicated Anemia, acute, stable, pt denies blood in stool Total 2 PRBC (on 05/16) and 4 FFP (on 05/15 and 05/16) 07/14 hb 10.4, hct: 31.3 Iron 16, TIBC 205, % sat 4.7, repeat ferritin 185 after Ferrlecit Monitor CBC q2d Per Dr. Cash, consider Procrit supplementation in attempt to avoid further transfusions if Hgb < 9 Thrombocytosis - suspect reactive to pain, surgery; resolved 07/14 platelets: 304 follow up am labs tomorrow DM2, controlled From prior note: admittedly non-compliant, has not taken Januvia for 1 y Accuchecks q6h Hypoglycemic protocol ISS regular HgbA1c 5.8 Hx gastric bypass surgery Hypercholesterolemia, untx LDL < 30, HDL < 23, Chol 59, TG 195 (06/03/18) Hx gastric bypass surgery Questran 4 g PO bid Hx HTN, controlled Since gastric bypass has not taken meds Metoprolol 12.5 mg bid Hx Asthma - Chronic Continue to monitor Atrovent prn C/o productive cough on and off today, Robitussin prn, defer steroids at this time due to concern for wound healing s/p surgical procedures Added Claritin 10 daily for allergy sxs Nicotine use disorder - Chronic From prior note: 1 ppd x 20 y, 1/2 ppd x 3 y C/w Nicoderm patch Electrolyte imbalance - Hypokalemia, Hypomagnesemia, resolving F/u am labs, replete as needed Mg 1.5, K 3.4 - monitor and follow am labs tomorrow PPX, Diet, Dispo Hydrocortisone 1% cream top tid for R upper inner arm macular rash - improved Vitamin A+D top q 8h prn for dry lips Saliva substitute q 6 h prn for dry mouth IVF not indicated at this time VTE ppx: Lovenox 40 subQ d, SCDs, encourage ambulation GI ppx: Protonix 40 mg IV bid, Florastor bid Code status: Full code Continue PT services, follow up recs Dispo: Continue to optimize patient for reversal surgery. Dr. Harley to coordinate with Dr. Mccray plan for intervention. Pt to remain inpatient until r eversal procedure performed by surgical team.
[2018-07-16] MEDS: Benzocaine/Menthol (Cepacol) Lozenge MT PRN (18:12)
--- NOTE | 2018-07-16 20:22 | PN ---
DATE: 07/16/2018 SUBJECTIVE: The patient had a fever of 103.1 today. She complains of abdominal pain and she says, it is 9/10 and wants more medication. She also has a PICC line. She was started yesterday on Merrem and Mycamine and now is febrile. It is unclear whether she is still draining from the surgical wound and there is collection in the wound VAC. She is awake, alert, asking for more pain medications. We will order blood cultures through the line and peripheral. Need to rule out line sepsis. She also has problem with abdomen, so if she continues to have fever, we will have to get CAT scan done. PHYSICAL EXAMINATION: VITAL SIGNS: Heart rate is 116, blood pressure 108/75, respirations are 20. HEENT: Head is atraumatic, normocephalic. She has a NG tube present. LUNGS: Clear. HEART: S1 and S2 are tachycardic. ABDOMEN: Remains with a jejunostomy tube and the wound VAC to the central wound. EXTREMITIES: Have no edema. 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 LABORATORY DATA: White count is from yesterday. No new labs were done. CBC is not there from today but potassium is 3.4, they are supplementing it and magnesium is also low which is being supplemented. ASSESSMENT AND PLAN: If she continues to have fever, we will add vancomycin also, I think, I should as she is still febrile. We will follow. Guero Rivera MD
[2018-07-16] MEDS ORDERED: Magnesium Sulfate 1 gm in D5W 1 GM/100 ML BAG IVPB ONE (23:00)
[2018-07-17] MEDS: Micafungin 100 MG in Sodium Chloride 0.9% 100 ML IV SCH ×2 (00:01→22:00)
[2018-07-17] MEDS: Ipratropium 0.02% Inhal Soln (0.5 mg/2.5 ml) UD IH SCH ×4 (01:11→19:30)
[2018-07-17] MEDS: HYDROmorphone 1 mg/ml ISec IVP PRN ×8 (01:19→23:33)
[2018-07-17] MEDS: Meropenem 1 GM in Sodium Chloride 0.9% 100 ML IVPB SCH ×5 (01:52→23:48)
[2018-07-17] MEDS: Acetaminophen 650mg/20.3ml solution UD GT PRN ×2 (07:09→23:47)
[2018-07-17 08:01] LABS: BASO # 0.1 K/uL (0.0-0.2); BASO % 1.1 % (0.0-2.0); EOS # 0.4 K/uL (0.0-0.7); EOS % 4.9 % (0.0-4.0); HEMOGLOBIN 9.1 g/dL (11.0-16.0); LYMPH # 1.6 K/uL (1.0-4.3); LYMPH % 18.6 % (20.0-40.0); MEAN CELL VOLUME 87.3 fL (81.0-99.0); MEAN CORPUSCULAR HEMOGLOBIN 28.6 pg (27.0-31.0); MEAN CORPUSCULAR HGB CONC 32.8 g/dL (33.0-37.0); MEAN PLATELET VOLUME 8.2 fL (7.2-11.7); MONO # 0.6 K/uL (0.0-0.8); MONO % 7.4 % (0.0-10.0); NEUT # 5.9 K/uL (1.8-7.0); RBC 3.18 Mil/uL (3.80-5.20); RED CELL DISTRIBUTION WIDTH 17.5 % (11.5-14.5); WHITE BLOOD COUNT 8.7 K/uL (4.8-10.8)
[2018-07-17] MEDS: (Novolin R) Insulin Human Regular 100 units/ml vial SC SCH ×4 (08:19→21:39)
[2018-07-17 08:30] LABS: ALB/GLOB RATIO 0.9 (1.0-2.1); ALBUMIN 2.5 g/dL (3.5-5.0); ALT/SGPT 16 U/L (9-52); AST/SGOT 15 U/L (14-36); BLOOD UREA NITROGEN 5 mg/dL (7-17); CALCIUM 7.9 mg/dl (8.6-10.4); GFR NON-AFRICAN AMERICAN > 60
--- NOTE | 2018-07-17 09:41 | RAD ---
Date of service: 07/17/2018 HISTORY: r/o pneumonia COMPARISON: No prior. FINDINGS: In situ ETT, tip of which terminates in the distal mediastinum just above the EG junction and must be advanced. No change right-sided PICC line. LUNGS: Elliptical shaped nodular opacity in the overlying the left lower lung base again is again noted of uncertain etiology as this was not present on the prior chest radiograph of 07/09/2018 PLEURA: No significant pleural effusion identified, no pneumothorax apparent. CARDIOVASCULAR: Normal. OSSEOUS STRUCTURES: No significant abnormalities. VISUALIZED UPPER ABDOMEN: Apparent in situ NGT.. Metallic clips left upper quadrant of the abdomen also noted OTHER FINDINGS: None. IMPRESSION: In situ NGT, the tip of which overlies the lower mediastinum and must be advanced. No acute infiltrates. No change nodular density overlying the left lung base when compared with prior chest radiograph 07/15/2018 however this nodular density was not present on the chest radiograph 07/09/2018. Clinical correlation recommended.
[2018-07-17] MEDS: Cholestyramine 4 gm/Pkt UD PO SCH ×2 (10:39→18:46)
[2018-07-17] MEDS: Pantoprazole 40 mg Susp UD PO SCH (10:39)
[2018-07-17] MEDS: Enoxaparin 40 mg Syringe SC SCH (10:40)
[2018-07-17] MEDS: GENTAMICIN 0.1% TOP SCH ×3 (10:41→18:46)
[2018-07-17] MEDS: Sodium Chloride 0.9% 1,000 ML IV SCH (13:20)
[2018-07-17] MEDS: Loperamide Hydrochloride 1 mg/5 ml Cup PO PRN (18:46)
[2018-07-17] MEDS: Benzocaine/Menthol (Cepacol) Lozenge MT PRN (18:47)
--- NOTE | 2018-07-17 20:40 | CP.PCM.PN ---
<Humberto Banegas - Last Filed: 07/17/18 20:34> Subjective - Date & Time of Evaluation Date of Evaluation: 07/17/18 Time of Evaluation: 09:20 - Subjective Subjective: PGY-[address] Turk service Patient is seen and examined at bedside. Patient complains of productive coughing. Patient admits to having clear phlegm. Continues experiencing body aches, headaches, fever and chills. overnight, patient had fever of 103.1. Patient is currently afebrile. Patient admits to unchanged episodes of diarrhea. Patient denies abdominal pain, vomiting, chest pain or shortness of breath. Objective - Vital Signs/Intake and Output Vital Signs (last 24 hours): Temp Pulse Resp BP Pulse Ox 98.5 F 95 H 20 127/89 98 07/17/18 15:08 07/17/18 15:08 07/17/18 15:08 07/17/18 15:08 07/17/18 15:08 Intake and Output: 07/17/18 07/18/18 18:59 06:59 Intake Total 1200 Output Total 100 Balance 1100 - Medications Medications: Current Medications Acetaminophen (Tylenol 650mg/20.3ml Solution Ud) 975 mg GT Q8H PRN PRN Reason: Pain, Mild (1-3) Last Admin: 07/17/18 07:09 Dose: 975 mg Benzocaine/Menthol (Cepacol Sore Throat) 1 sravan MT Q2H PRN PRN Reason: Sore Throat Last Admin: 07/17/18 18:47 Dose: 1 sravan Calcium Acetate (Phoslo) 667 mg GT TIDCC [facility] Last Admin: 07/17/18 18:46 Dose: 667 mg Cholestyramine Resin (Questran) 4 gm PO BID [facility] Last Admin: 07/17/18 18:46 Dose: 4 gm Dextrose (Dextrose 50% Inj) 0 ml IV STAT PRN; Protocol PRN Reason: Hypoglycemia Protocol Last Admin: 07/10/18 18:22 Dose: 25 ml Dextrose (Glutose 15) 0 gm PO ONCE PRN; Protocol PRN Reason: Hypoglycemia Protocol Enoxaparin Sodium (Lovenox) 40 mg SC DAILY [facility] Last Admin: 07/17/18 10:40 Dose: 40 mg Ergocalciferol (Drisdol 50,000 Intl Units Cap) 1 cap PO Q7D [facility] Stop: 07/20/18 10:01 Last Admin: 07/13/18 10:57 Dose: 1 cap Escitalopram Oxalate (Lexapro) 10 mg GT DAILY [facility] Last Admin: 07/17/18 10:39 Dose: 10 mg Gentamicin Sulfate (Gentamicin 0.1%) 0 gm TOP TID [facility] Last Admin: 07/17/18 18:46 Dose: 1 oin Glucagon (Glucagen Diagnostic Kit) 0 mg IM STAT PRN; Protocol PRN Reason: Hypoglycemia Protocol Guaifenesin (Robitussin) 100 mg PO Q4H PRN PRN Reason: Cough Last Admin: 07/16/18 21:51 Dose: 100 mg Hydromorphone HCl (Dilaudid) 1 mg IVP Q3H PRN PRN Reason: Pain, Mild (1-3) Last Admin: 07/17/18 17:42 Dose: 1 mg Meropenem 1 gm/ Sodium (Chloride) 100 mls @ 100 mls/hr IVPB Q8H [facility]; Protocol Last Admin: 07/17/18 08:58 Dose: 100 mls/hr Micafungin Sodium 100 mg/ (Sodium Chloride) 100 mls @ 100 mls/hr IV Q24H [facility]; Protocol Last Admin: 07/17/18 00:01 Dose: 100 mls/hr Sodium Chloride (Sodium Chloride 0.9%) 1,000 mls @ 100 mls/hr IV .Q10H [facility] Last Admin: 07/17/18 13:20 Dose: 100 mls/hr Vancomycin HCl 1,000 mg/ (Sodium Chloride) 200 mls @ 133.333 mls/hr IVPB Q12H [facility]; Protocol Last Admin: 07/17/18 17:42 Dose: 133.333 mls/hr Insulin Human Regular (Novolin R) 0 unit SC ACHS [facility]; Protocol Last Admin: 07/17/18 12:03 Dose: Not Given Ipratropium [place] (Atrovent) 0.5 mg IH RQ6 [facility] Last Admin: 07/17/18 19:30 Dose: 0.5 mg Loperamide HCl (Imodium) 1 mg PO Q2H PRN PRN Reason: Diarrhea Last Admin: 07/17/18 18:46 Dose: 1 mg Loratadine (Claritin) 10 mg PO DAILY [facility] Last Admin: 07/17/18 10:39 Dose: 10 mg Lorazepam (Ativan) 1 mg IVP BID [facility] Last Admin: 07/17/18 18:45 Dose: 1 mg Metoprolol Tartrate (Lopressor) 12.5 mg PEG BID [facility] Last Admin: 07/17/18 18:46 Dose: 12.5 mg Nicotine (Nicoderm Cq) 1 patch TD DAILY [facility] Last Admin: 07/17/18 10:39 Dose: 1 patch Ondansetron HCl (Zofran Inj) 4 mg IVP Q6H PRN PRN Reason: Nausea/Vomiting Last Admin: 07/17/18 18:45 Dose: 4 mg Pantoprazole Sodium (Protonix Susp) 40 mg PO DAILY [facility] Last Admin: 07/17/18 10:39 Dose: 40 mg Saliva Substitute (Mouth Kote 236 Ml) 0 ml MM Q6 PRN PRN Reason: Dry mouth Vitamin A (Vitamin A & D Oint Ud Foilpak) 1 ea TOP Q8 PRN PRN Reason: dry lips Vitamin E (Vitamin E 400 Units Cap) 400 intlu GT DAILY [facility] Last Admin: 07/17/18 10:39 Dose: 400 intlu - Labs Labs: 07/17/18 07:53 07/17/18 07:53 PT 14.3 SECONDS (9.7-12.2) H 06/10/18 07:05 INR 1.3 06/10/18 07:05 APTT 33 SECONDS (21-34) 05/25/18 06:16 - Constitutional Appears: No Acute Distress, Chronically Ill - Head Exam Head Exam: ATRAUMATIC, NORMAL INSPECTION, NORMOCEPHALIC - Eye Exam Eye Exam: EOMI, Normal appearance - ENT Exam ENT Exam: Mucous Membranes Moist, Normal Exam Additional comments: NG tube in place - Neck Exam Neck Exam: Full ROM, Normal Inspection - Respiratory Exam Respiratory Exam: Wheezes, NORMAL BREATHING PATTERN. absent: Accessory Muscle Use, Respiratory Distress - Cardiovascular Exam Cardiovascular Exam: Tachycardia, REGULAR RHYTHM, +S1, +S2 - GI/Abdominal Exam GI & Abdominal Exam: Soft, Normal Bowel Sounds. absent: Distended, Tenderness Additional comments: wound vac in place over midline incision, no leakage, clean and dry, and func tioning. PEG tube in place, covered in dressing. - Extremities Exam Extremities Exam: Full ROM, Normal Inspection. absent: Calf Tenderness, Tenderness - Back Exam Back Exam: NORMAL INSPECTION - Neurological Exam Neurological Exam: Alert, Awake, Oriented x3 - Psychiatric Exam Psychiatric exam: Normal Affect, Normal Mood - Skin Skin Exam: Dry, Intact, Normal Color, Warm Assessment and Plan - Assessment and Plan (Free Text) Plan: Plan: Ischemic bowel disease 2/2 internal hernia producing bowel obstruction Current drains include: NGT (intermittent suction per surgery recs) replaced on 07/09/18 by surgery team, gastrostomy tube (replaced 06/10/18) Latest wound cultures: -Abd incision, Peg incision site => Pseudomonas aeruginosa, sensitive to Meropenem -Per ID: Meropenem 1 g q 8 h (d/c 07/11), Vancomycin 1.5 g IVPB q 12 h (d/c on 07/05/18) -vanco trough 07/05 -- 15.1 -Repeat abd wound cx 07/12 growing gram-neg wolf and yeast; Dr. Rivera notified, advised to obtain stat blood cxs x2 and restart Meropenem Surgery (Dr. Harley) consulted - awaiting Dr Mccray's response on surgical intervention; f/u with surgical team regarding dispo Wound vac to continuous suction, to be replaced Q72hrs Heme/onc (Dr. Cash) consulted for Fe status - repeat ferritin 185, no need for iron infusion at this time, continue to monitor Other cultures: 06/22/18: abd incision => Pseudomonas aeruginosa sensitive to Meropenem 06/22/18: Peg site => Pseudomonas aeruginosa sensitive to Meropenem 05/14/18: Peritoneal fluid => Pseudomonas aeruginosa sensitive to Meropenem 05/23/18: Wound cx => Chula albicans 05/15/18, 05/22/18: Blood cx => no growth 05/22/18: Urine cx => no growth 05/31/18: Incision site => Enterococcus faecalis, Acinetobacter baumannii 06/03/18: Stool cxs => No Salmonella, Shigella, or Campylobacter isolates 06/13/18: Repeat wound cx => Coag-neg Staph, Enterococcus raffinosus 07/12/18 Repeat wound cx growing gram-neg wolf + Yeast, repeat blood cxs ordered today, pt restarted on Meropenem as per ID recs Antibiotics: Continue Meropenem 1 g q 8 h IVPB ; restarted yesterday as per ID due to pos abd wound cx (07/12) Vancomycin 1 g IV q 12 h started 07/16 Cipro 400 mg IV q 12h d/c'd (started 06/02/18, last day 06/16/18) Flagyl 500 mg IVPB q 8 h completed (active from 05/15/18-06/19/18) Micafungin 100mg IV Q24hrs Continue Gentamicin 0.1% TOP TID apply cream to peg tube site F/u vitamin levels and replace as needed: Vit D < 12.8, 19878 U q1 wk x 8 wks B12 707, wnl; repeat B12 508 Folate 12.6, wnl Vit A 42, wnl Alpha vit E 5.6, wnl Zinc level wnl Vit A, B1, B6, E levels reordered on 06/15 Vit B1: inappropriately submitted, 06/01/18 valve acceptable Vit B6: 5.9, wnl Vit A, E collected Repeat Vitamin levels ordered on 07/08, f/u results 07/08: Pre-albumin 11.6, B12 508, 25-OH vit D < 12.8 As per shactor recs on 07/11, will adjust Jevity feeds for pt's updated weight for optimal nutrition C/w Tylenol 975 mg liquid q 8h, Dilaudid 1 mg q 3 h prn, Zofran 4 mg IV q 6 h prn Fever possible sepsis - overnight fever, afebrile this morning - abdominal wound culture shows chula and pseudomonas - chest x ray - lungs clear to auscultation b/l, no acute findings - Repeat portable chest x ray 07/18 - in situ NGT, the tip of which overlies the lower mediastinum and must be advanced. no acute infiltrates. - f/u blood cultures from peripheral source and picc line source - Gram positive Cocci - PICC Line removed today (07/17) - picc line sent for culture - follow up cath culture - f/u sputum cultures - normal renetta - Urine culture - no growth, final - WBC 07/17 - 8.7 -f/u Bl Doppler to rule out DVT - no DVT bilaterally, (pending official report) -VBG/lactate level - ph: 7.45, pCO2: 39, lactate 0.9 - Normal saline @ 100mls/hr - continue tylenol for fevers -abx: Meropenem 1 g q 8 h IVPB Vancomycin 1 g IV q 12 h - follow up vanc trough - follow Dr Nicole leon - continue abx Tachycardia, persistent, hx into 110s-130s - possible etiologies include pain, infection, anxiety Today HR - 62, continue to monitor and trend Ativan prn, Dilaudid prn C/w metoprolol tartrate 12.5 mg bid F/U C.diff toxin A and B Diarrhea- suspect 2/2 PO intake by patient C. Diff (05/22, 05/24, 05/28) neg Stool ova and parasites (05/25/18) neg Stool leukocytes (05/25/18) neg Imodium 1 mg PO q 2h prn Anxiety Vacuum Form Operator consulted - pt refusing at this time Psych consulted (Dr. Reyez) - managing Ativan, c/w prn Lexapro 10 mg GT daily (started 05/31) Insomnia - Benadryl d/c'd, clinically not indicated Anemia, acute, stable, pt denies blood in stool Total 2 PRBC (on 05/16) and 4 FFP (on 05/15 and 05/16) 07/14 hb 10.4, hct: 31.3 Iron 16, TIBC 205, % sat 4.7, repeat ferritin 185 after Ferrlecit Monitor CBC q2d Per Dr. Cash, consider Procrit supplementation in attempt to avoid further transfusions if Hgb < 9 Thrombocytosis - suspect reactive to pain, surgery; resolved 07/14 platelets: 304 follow up am labs tomorrow DM2, controlled From prior note: admittedly non-compliant, has not taken Januvia for 1 y Accuchecks q6h Hypoglycemic protocol ISS regular HgbA1c 5.8 Hx gastric bypass surgery Hypercholesterolemia, untx LDL < 30, HDL < 23, Chol 59, TG 195 (06/03/18) Hx gastric bypass surgery Questran 4 g PO bid Hx HTN, controlled Since gastric bypass has not taken meds Metoprolol 12.5 mg bid Hx Asthma - Chronic Continue to monitor Atrovent prn C/o productive cough on and off today, Robitussin prn, defer steroids at this time due to concern for wound healing s/p surgical procedures Added Claritin 10 daily for allergy sxs Nicotine use disorder - Chronic From prior note: 1 ppd x 20 y, 1/2 ppd x 3 y C/w Nicoderm patch Electrolyte imbalance - Hypokalemia, Hypomagnesemia, resolving F/u am labs, replete as needed Mg 1.7, K 3.7 - monitor and follow am labs tomorrow PPX, Diet, Dispo Hydrocortisone 1% cream top tid for R upper inner arm macular rash - improved Vitamin A+D top q 8h prn for dry lips Saliva substitute q 6 h prn for dry mouth IVF not indicated at this time VTE ppx: Lovenox 40 subQ d, SCDs, encourage ambulation GI ppx: Protonix 40 mg IV bid, Florastor bid Code status: Full code Continue PT services, follow up recs Dispo: Continue to optimize patient for reversal surgery. Dr. Harley to coordinate with Dr. Mccray plan for intervention. Pt to remain inpatient until reversal procedure performed by surgical team. Plan discussed with Dr Burke Banegas, PGY-1 <Doretha Turk V - Last Filed: 07/17/18 21:32> Objective - Vital Signs/Intake and Output Vital Signs (last 24 hours): Temp Pulse Resp BP Pulse Ox 98.5 F 95 H 20 127/89 98 07/17/18 15:08 07/17/18 15:08 07/17/18 15:08 07/17/18 15:08 07/17/18 15:08 Intake and Output: 07/17/18 07/18/18 18:59 06:59 Intake Total 1200 Output Total 100 Balance 1100 - Medications Medications: Current Medications Acetaminophen (Tylenol 650mg/20.3ml Solution Ud) 975 mg GT Q8H PRN PRN Reason: Pain, Mild (1-3) Last Admin: 07/17/18 07:09 Dose: 975 mg Benzocaine/Menthol (Cepacol Sore Throat) 1 sravan MT Q2H PRN PRN Reason: Sore Throat Last Admin: 07/17/18 18:47 Dose: 1 sravan Calcium Acetate (Phoslo) 667 mg GT TIDCC [facility] Last Admin: 07/17/18 18:46 Dose: 667 mg Cholestyramine Resin (Questran) 4 gm PO BID [facility] Last Admin: 07/17/18 18:46 Dose: 4 gm Dextrose (Dextrose 50% Inj) 0 ml IV STAT PRN; Protocol PRN Reason: Hypoglycemia Protocol Last Admin: 07/10/18 18:22 Dose: 25 ml Dextrose (Glutose 15) 0 gm PO ONCE PRN; Protocol PRN Reason: Hypoglycemia Protocol Enoxaparin Sodium (Lovenox) 40 mg SC DAILY [facility] Last Admin: 07/17/18 10:40 Dose: 40 mg Ergocalciferol (Drisdol 50,000 Intl Units Cap) 1 cap PO Q7D [facility] Stop: 07/20/18 10:01 Last Admin: 07/13/18 10:57 Dose: 1 cap Escitalopram Oxalate (Lexapro) 10 mg GT DAILY [facility] Last Admin: 07/17/18 10:39 Dose: 10 mg Gentamicin Sulfate (Gentamicin 0.1%) 0 gm TOP TID [facility] Last Admin: 07/17/18 18:46 Dose: 1 oin Glucagon (Glucagen Diagnostic Kit) 0 mg IM STAT PRN; Protocol PRN Reason: Hypoglycemia Protocol Guaifenesin (Robitussin) 100 mg PO Q4H PRN PRN Reason: Cough Last Admin: 07/16/18 21:51 Dose: 100 mg Hydromorphone HCl (Dilaudid) 1 mg IVP Q3H PRN PRN Reason: Pain, Mild (1-3) Last Admin: 07/17/18 20:39 Dose: 1 mg Meropenem 1 gm/ Sodium (Chloride) 100 mls @ 100 mls/hr IVPB Q8H [facility]; Protocol Last Admin: 07/17/18 08:58 Dose: 100 mls/hr Micafungin Sodium 100 mg/ (Sodium Chloride) 100 mls @ 100 mls/hr IV Q24H [facility]; Protocol Last Admin: 07/17/18 00:01 Dose: 100 mls/hr Sodium Chloride (Sodium Chloride 0.9%) 1,000 mls @ 100 mls/hr IV .Q10H [facility] Last Admin: 07/17/18 13:20 Dose: 100 mls/hr Vancomycin HCl 1,000 mg/ (Sodium Chloride) 200 mls @ 133.333 mls/hr IVPB Q12H [facility]; Protocol Last Admin: 07/17/18 17:42 Dose: 133.333 mls/hr Insulin Human Regular (Novolin R) 0 unit SC ACHS [facility]; Protocol Last Admin: 07/17/18 12:03 Dose: Not Given Ipratropium [place] (Atrovent) 0.5 mg IH RQ6 [facility] Last Admin: 07/17/18 19:30 Dose: 0.5 mg Loperamide HCl (Imodium) 1 mg PO Q2H PRN PRN Reason: Diarrhea Last Admin: 07/17/18 18:46 Dose: 1 mg Loratadine (Claritin) 10 mg PO DAILY [facility] Last Admin: 07/17/18 10:39 Dose: 10 mg Lorazepam (Ativan) 1 mg IVP BID [facility] Last Admin: 07/17/18 18:45 Dose: 1 mg Metoprolol Tartrate (Lopressor) 12.5 mg PEG BID [facility] Last Admin: 07/17/18 18:46 Dose: 12.5 mg Nicotine (Nicoderm Cq) 1 patch TD DAILY [facility] Last Admin: 07/17/18 10:39 Dose: 1 patch Ondansetron HCl (Zofran Inj) 4 mg IVP Q6H PRN PRN Reason: Nausea/Vomiting Last Admin: 07/17/18 18:45 Dose: 4 mg Pantoprazole Sodium (Protonix Susp) 40 mg PO DAILY [facility] Last Admin: 07/17/18 10:39 Dose: 40 mg Saliva Substitute (Mouth Kote 236 Ml) 0 ml MM Q6 PRN PRN Reason: Dry mouth Vitamin A (Vitamin A & D Oint Ud Foilpak) 1 ea TOP Q8 PRN PRN Reason: dry lips Vitamin E (Vitamin E 400 Units Cap) 400 intlu GT DAILY [facility] Last Admin: 07/17/18 10:39 Dose: 400 intlu - Labs Labs: 07/17/18 07:53 07/17/18 07:53 PT 14.3 SECONDS (9.7-12.2) H 06/10/18 07:05 INR 1.3 06/10/18 07:05 APTT 33 SECONDS (21-34) 05/25/18 06:16 Assessment and Plan (1) Ischemic bowel disease Status: Acute (2) Obesity (BMI 30-39.9) Status: Acute (3) Small bowel obstruction Status: Acute (4) Prophylactic measure Status: Acute Attending/Attestation - Attestation I have personally seen and examined this patient.: Yes I have fully participated in the care of the patient.: Yes I have reviewed all pertinent clinical information, including history, physical exam and plan: Yes Notes (Text): Patient seen, examined, case discussed with medical laboratory technician. Patient seen, visibly upset, verbally abusive, noting multiple cursing including many "fucks" to me and nursing staff. Patient is upset that she has not received her Ativan yet. I have indicated to her in light of an acute infection that we do not want her to be lethargic and mask that with medication. I also indicated to her that we will likely have to remove the PICC line that is a source of infection for her first we need to have a peripheral line such that if she needs any medication we have accessible for her. Peripheral line was obtained by nursing staff. PICC line was removed and catheter tip placed for culture we will follow-up to see if the PICC line is source of infection. Given the patient is having cyclic fevers. Also to note blood cultures from 10 5 showing positive gram-positive cocci 2 we will repeat blood cultures tomorrow. Patient started on vancomycin yesterday by infectious disease we'll check a vancomycin trough tomorrow 30 minutes prior to fourth dose. Prelim read of venous Doppler showing no DVT. We will continue IV antibiotic and monitor repeat blood cultures for July 18 to see if bacteremia resolves. I have indicated to patient that in light of an acute infection we do not want to mask her symptoms with Ativan and Dilaudid and though that has made her very upset I believe she is understanding of the fact. Assessment/Plan (1) Ischemic bowel disease Assessment & Plan: * Dr. Harley (surgery) on the case-->help appreciated * Preoperative/intraoperative/postoperative management per surgery * Following Bariatric surgeon (Dr. Mccray) to determine reversal bariatric surgery * Continue wound vac change per surgery * Continue tube feeds for nutrition * Continue NGT to intermittent suction * Continue antibiotics, PRN pain medications * Dr. Alvarado (GI) on the case-->help appreciated * Dr. Rivera (ID) on the case-->help appreciated * Brief summary of: * Patient has had 2 bloody bowel movements started 05/14/18. Patient's rectal: blood. She had reported abdominal pain has worsening since night of admission. Patient required emergent surgical intervention on 05/14/18 and transferred to ICU. Per operative note (05/14/18): Diagnostic laparoscopy, Exploratory laparotomy, Reduction of internal hernia, Lysis of adhesions, Drainage of abdominal collections, temporary abdominal closure, EGD * Ischemia of yenni limb, internal hernia. Bob White drain stitched to distal common limb * Patient underwent surgery again on 05/16/18.Re-exploration, Small bowel resection of ileum, small bowel resection of Yenni limb with gastrojejunostomy, reversal of bypass, primary anastomosis of ileum-ileum, ileum-ileum, and ileum-jejunum, Gastrostomy tube in bypassed stomach, EGD. Patient extubated 05/16/18. Patient is pending surgery intervention to restore GI motility. prior conversation discussed with Dr. Harley who will followup with Dr. Mccray. Measure vitamin levels and replace as needed * Vit D <12.8- vit D 50,000 units q1wk x8 wks: has completed 7 doses will finish this Wednesday. * Prealbumin 18.1 * B12 707 * Folate 12.6 * Vitamin A: 42 * Vitamin E: 5.6 (low)-->replete * Vitamin B6: 11.1 (normal) and Vitamin B1: 93 (from 06/01/18) * Repeat vitamins ordered Jul 09-->f/u result * Drains included: NGT Tube in place replaced setp , gastrostomy tube, left min removed 05/25/18; right min was removed 05/23/18; no ojeda; wound vac on board * IV abx: * Meropenem 1 g IV piggyback every 8hours active since 07/14/2018 * vancomycin 1 g IV piggyback every 12 hours active since 07/16/2018 follow- up vancomycin trough tomorrow * Micafungin 100 mg IV Q24H (active since 07/14/18) * Cultures: * blood cultures from July 16 noting gram-positive cocci via central line * Catheter tip was sent on July 17 will need to follow * Blood cultures from 07/14/2018 no growth for 3 days * Blood cultures from 07/15/2018 via PICC line no growth * Sputum culture no growth * Urine culture no growth * Pending C. difficile which was collected today * PRNS: * Tylenol 975 mg liq q8hrs * Dilaudid 1.5 mg IV q3hrs PRN-->Dilaudid 1mg IV Q3H PRN * Zofran 4mg IV q6hrs PRN * Ativan 1mg IV BID anxiety-->per psych * Diarrhea * Patient is Questran 4gm PO BID Status: Acute (2) Small bowel obstruction Assessment & Plan: * Secondary to hernia * Further details noted in #1 Status: Acute (3) Obesity (BMI 30-39.9) Assessment & Plan: * s/p gastric bypass surgery in 2013 * Operative note (2013): Yenni-en-Y gastric bypass surgery * Given nature of ischemic bowel affecting portioning of the gastric limb, she will need to wait until nutritional status is optimized per surgery Status: Acute (4) Status post gastric bypass for obesity Assessment & Plan: * status post gastric bypass 2013 * Operative note (2013): Yenni-en-Y gastric bypass surgery * Patient noncomplaint with following up postoperative. Status: Acute (5) History of Asthma Assessment & Plan: * Patient not in acute exacerbation prior to OR * Atrovent Q6H (6) Diabetes Mellitus (Type 2); controlled Assessment & Plan: * From prior note: * Admittedly non-compliant - has not taken Januvia for one year * Accuchecks Q6H * Hypoglycemic protocol * HbA1c - 6.3 (03/10/17) * hgba1c: 5.8 * History of gastric bypass surgery (8) Hx of HTN (hypertension) Assessment & Plan: * Since Gastric Bypass has not taken meds (9) Hx of Hypothyroid Assessment & Plan: * From prior note: * Pt admits non-compliance (10) Hypercholesterolemia Assessment & Plan: * From prior note: * Pt not taking meds * LDL 138, HDL 67, Tchol 220, Trig 112 * History of gastric bypass surgery (11) Anxiety Assessment & Plan: * Psychiatry (Dr. 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 Assessment & Plan: * 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 and from my prior note from last hospitalization (13) Smoker Assessment & Plan: * From my prior note: 1ppd x 20 yrs, 1/2 ppd x 3 yrs * Nicoderm 1 patch TD patchy (14) Tachycardia Assessment & Plan: * Lopressor 12.5mg PO BID (15) Prophylactic measure Assessment & Plan: * Bacid Acidophilus 1 cap PEG BID * Lovenox 40mg subqdaily for DVT ppx * PICC line 06/01/18: removed 07/17/2018 * protonix 40mg IV Qdaily * Vitamin A&D ointment 1 each top Q8H * NGT Tube * IR exchange of Ojeda to 24 sami gauge 06/10/18 * Wound vac * Dressing changed per surgery * Feed orders: * Patient is currently on Osmolite via G Tube which has the following components. * MCT Oil (benefits in situations with malabsorption and is low residue) * 1440 calories; 70 gm protein; 914 ml free water * Should at any time the patient require TPN then we can try the following options: * 83 ml/hr: 2100 tete, 100 gm protein * 63 ml/hr: 1575 tete, 75 gm protein * 20% Intrilipid every other day with either one of the TPN rates mentioned above Status: Acute Disposition: Awaiting coordination from surgery and bariatric surgery for reversal since there is GI dysmotility. Patient is on vancomycin and meropenem foror bacteremia suspected secondary to PICC line. We'll need to monitor patient who is Febrile. Blood cultures repeated for tomorro to see if patient is without infect prior to new PICC line placement. we'll need to follow-up with lab in regarding vitamins from July 09 weekend.
--- NOTE | 2018-07-17 21:42 | CP.PCM.PN ---
Subjective - Date & Time of Evaluation Date of Evaluation: 07/16/18 Time of Evaluation: 15:00 - Subjective Subjective: Having fever Objective - Vital Signs/Intake and Output Vital Signs (last 24 hours): Temp Pulse Resp BP Pulse Ox 98.5 F 95 H 20 127/89 98 07/17/18 15:08 07/17/18 15:08 07/17/18 15:08 07/17/18 15:08 07/17/18 15:08 Intake and Output: 07/17/18 07/18/18 18:59 06:59 Intake Total 1200 Output Total 100 Balance 1100 - Medications Medications: Current Medications Acetaminophen (Tylenol 650mg/20.3ml Solution Ud) 975 mg GT Q8H PRN PRN Reason: Pain, Mild (1-3) Last Admin: 07/17/18 07:09 Dose: 975 mg Benzocaine/Menthol (Cepacol Sore Throat) 1 sravan MT Q2H PRN PRN Reason: Sore Throat Last Admin: 07/17/18 18:47 Dose: 1 sravan Calcium Acetate (Phoslo) 667 mg GT TIDCC [facility] Last Admin: 07/17/18 18:46 Dose: 667 mg Cholestyramine Resin (Questran) 4 gm PO BID [facility] Last Admin: 07/17/18 18:46 Dose: 4 gm Dextrose (Dextrose 50% Inj) 0 ml IV STAT PRN; Protocol PRN Reason: Hypoglycemia Protocol Last Admin: 07/10/18 18:22 Dose: 25 ml Dextrose (Glutose 15) 0 gm PO ONCE PRN; Protocol PRN Reason: Hypoglycemia Protocol Enoxaparin Sodium (Lovenox) 40 mg SC DAILY [facility] Last Admin: 07/17/18 10:40 Dose: 40 mg Ergocalciferol (Drisdol 50,000 Intl Units Cap) 1 cap PO Q7D [facility] Stop: 07/20/18 10:01 Last Admin: 07/13/18 10:57 Dose: 1 cap Escitalopram Oxalate (Lexapro) 10 mg GT DAILY [facility] Last Admin: 07/17/18 10:39 Dose: 10 mg Gentamicin Sulfate (Gentamicin 0.1%) 0 gm TOP TID [facility] Last Admin: 07/17/18 18:46 Dose: 1 oin Glucagon (Glucagen Diagnostic Kit) 0 mg IM STAT PRN; Protocol PRN Reason: Hypoglycemia Protocol Guaifenesin (Robitussin) 100 mg PO Q4H PRN PRN Reason: Cough Last Admin: 07/16/18 21:51 Dose: 100 mg Hydromorphone HCl (Dilaudid) 1 mg IVP Q3H PRN PRN Reason: Pain, Mild (1-3) Last Admin: 07/17/18 20:39 Dose: 1 mg Meropenem 1 gm/ Sodium (Chloride) 100 mls @ 100 mls/hr IVPB Q8H [facility]; Protocol Last Admin: 07/17/18 21:17 Dose: 100 mls/hr Micafungin Sodium 100 mg/ (Sodium Chloride) 100 mls @ 100 mls/hr IV Q24H [facility]; Protocol Last Admin: 07/17/18 00:01 Dose: 100 mls/hr Sodium Chloride (Sodium Chloride 0.9%) 1,000 mls @ 100 mls/hr IV .Q10H [facility] Last Admin: 07/17/18 13:20 Dose: 100 mls/hr Vancomycin HCl 1,000 mg/ (Sodium Chloride) 200 mls @ 133.333 mls/hr IVPB Q12H [facility]; Protocol Last Admin: 07/17/18 17:42 Dose: 133.333 mls/hr Insulin Human Regular (Novolin R) 0 unit SC ACHS [facility]; Protocol Last Admin: 07/17/18 21:39 Dose: Not Given Ipratropium [place] (Atrovent) 0.5 mg IH RQ6 [facility] Last Admin: 07/17/18 19:30 Dose: 0.5 mg Loperamide HCl (Imodium) 1 mg PO Q2H PRN PRN Reason: Diarrhea Last Admin: 07/17/18 18:46 Dose: 1 mg Loratadine (Claritin) 10 mg PO DAILY [facility] Last Admin: 07/17/18 10:39 Dose: 10 mg Lorazepam (Ativan) 1 mg IVP BID [facility] Last Admin: 07/17/18 18:45 Dose: 1 mg Metoprolol Tartrate (Lopressor) 12.5 mg PEG BID [facility] Last Admin: 07/17/18 18:46 Dose: 12.5 mg Nicotine (Nicoderm Cq) 1 patch TD DAILY [facility] Last Admin: 07/17/18 10:39 Dose: 1 patch Ondansetron HCl (Zofran Inj) 4 mg IVP Q6H PRN PRN Reason: Nausea/Vomiting Last Admin: 07/17/18 18:45 Dose: 4 mg Pantoprazole Sodium (Protonix Susp) 40 mg PO DAILY [facility] Last Admin: 07/17/18 10:39 Dose: 40 mg Saliva Substitute (Mouth Kote 236 Ml) 0 ml MM Q6 PRN PRN Reason: Dry mouth Vitamin A (Vitamin A & D Oint Ud Foilpak) 1 ea TOP Q8 PRN PRN Reason: dry lips Vitamin E (Vitamin E 400 Units Cap) 400 intlu GT DAILY [facility] Last Admin: 07/17/18 10:39 Dose: 400 intlu - Labs Labs: 07/17/18 07:53 07/17/18 07:53 PT 14.3 SECONDS (9.7-12.2) H 06/10/18 07:05 INR 1.3 06/10/18 07:05 APTT 33 SECONDS (21-34) 05/25/18 06:16 - Head Exam Head Exam: ATRAUMATIC - Eye Exam Eye Exam: Normal appearance - ENT Exam ENT Exam: Mucous Membranes Dry - Respiratory Exam Respiratory Exam: NORMAL BREATHING PATTERN - Cardiovascular Exam Cardiovascular Exam: +S1, +S2 - GI/Abdominal Exam GI & Abdominal Exam: Normal Bowel Sounds Assessment and Plan (1) Anemia Assessment & Plan: iron deficiency anemia resolved s/p IV iron anemia of chronic disease; will consider Procrit supplementation in an attempt to avoid further transfusions if hgb < 9 FOBT positive transfuse PRN Status: Acute
--- NOTE | 2018-07-17 21:43 | CP.PCM.PN ---
Subjective - Date & Time of Evaluation Date of Evaluation: 07/17/18 Time of Evaluation: 20:00 - Subjective Subjective: Has body aches Objective - Vital Signs/Intake and Output Vital Signs (last 24 hours): Temp Pulse Resp BP Pulse Ox 98.5 F 95 H 20 127/89 98 07/17/18 15:08 07/17/18 15:08 07/17/18 15:08 07/17/18 15:08 07/17/18 15:08 Intake and Output: 07/17/18 07/18/18 18:59 06:59 Intake Total 1200 Output Total 100 Balance 1100 - Medications Medications: Current Medications Acetaminophen (Tylenol 650mg/20.3ml Solution Ud) 975 mg GT Q8H PRN PRN Reason: Pain, Mild (1-3) Last Admin: 07/17/18 07:09 Dose: 975 mg Benzocaine/Menthol (Cepacol Sore Throat) 1 sravan MT Q2H PRN PRN Reason: Sore Throat Last Admin: 07/17/18 18:47 Dose: 1 sravan Calcium Acetate (Phoslo) 667 mg GT TIDCC [facility] Last Admin: 07/17/18 18:46 Dose: 667 mg Cholestyramine Resin (Questran) 4 gm PO BID [facility] Last Admin: 07/17/18 18:46 Dose: 4 gm Dextrose (Dextrose 50% Inj) 0 ml IV STAT PRN; Protocol PRN Reason: Hypoglycemia Protocol Last Admin: 07/10/18 18:22 Dose: 25 ml Dextrose (Glutose 15) 0 gm PO ONCE PRN; Protocol PRN Reason: Hypoglycemia Protocol Enoxaparin Sodium (Lovenox) 40 mg SC DAILY [facility] Last Admin: 07/17/18 10:40 Dose: 40 mg Ergocalciferol (Drisdol 50,000 Intl Units Cap) 1 cap PO Q7D [facility] Stop: 07/20/18 10:01 Last Admin: 07/13/18 10:57 Dose: 1 cap Escitalopram Oxalate (Lexapro) 10 mg GT DAILY [facility] Last Admin: 07/17/18 10:39 Dose: 10 mg Gentamicin Sulfate (Gentamicin 0.1%) 0 gm TOP TID [facility] Last Admin: 07/17/18 18:46 Dose: 1 oin Glucagon (Glucagen Diagnostic Kit) 0 mg IM STAT PRN; Protocol PRN Reason: Hypoglycemia Protocol Guaifenesin (Robitussin) 100 mg PO Q4H PRN PRN Reason: Cough Last Admin: 07/16/18 21:51 Dose: 100 mg Hydromorphone HCl (Dilaudid) 1 mg IVP Q3H PRN PRN Reason: Pain, Mild (1-3) Last Admin: 07/17/18 20:39 Dose: 1 mg Meropenem 1 gm/ Sodium (Chloride) 100 mls @ 100 mls/hr IVPB Q8H [facility]; Protocol Last Admin: 07/17/18 21:17 Dose: 100 mls/hr Micafungin Sodium 100 mg/ (Sodium Chloride) 100 mls @ 100 mls/hr IV Q24H [facility]; Protocol Last Admin: 07/17/18 00:01 Dose: 100 mls/hr Sodium Chloride (Sodium Chloride 0.9%) 1,000 mls @ 100 mls/hr IV .Q10H [facility] Last Admin: 07/17/18 13:20 Dose: 100 mls/hr Vancomycin HCl 1,000 mg/ (Sodium Chloride) 200 mls @ 133.333 mls/hr IVPB Q12H [facility]; Protocol Last Admin: 07/17/18 17:42 Dose: 133.333 mls/hr Insulin Human Regular (Novolin R) 0 unit SC ACHS [facility]; Protocol Last Admin: 07/17/18 21:39 Dose: Not Given Ipratropium [place] (Atrovent) 0.5 mg IH RQ6 [facility] Last Admin: 07/17/18 19:30 Dose: 0.5 mg Loperamide HCl (Imodium) 1 mg PO Q2H PRN PRN Reason: Diarrhea Last Admin: 07/17/18 18:46 Dose: 1 mg Loratadine (Claritin) 10 mg PO DAILY [facility] Last Admin: 07/17/18 10:39 Dose: 10 mg Lorazepam (Ativan) 1 mg IVP BID [facility] Last Admin: 07/17/18 18:45 Dose: 1 mg Metoprolol Tartrate (Lopressor) 12.5 mg PEG BID [facility] Last Admin: 07/17/18 18:46 Dose: 12.5 mg Nicotine (Nicoderm Cq) 1 patch TD DAILY [facility] Last Admin: 07/17/18 10:39 Dose: 1 patch Ondansetron HCl (Zofran Inj) 4 mg IVP Q6H PRN PRN Reason: Nausea/Vomiting Last Admin: 07/17/18 18:45 Dose: 4 mg Pantoprazole Sodium (Protonix Susp) 40 mg PO DAILY [facility] Last Admin: 07/17/18 10:39 Dose: 40 mg Saliva Substitute (Mouth Kote 236 Ml) 0 ml MM Q6 PRN PRN Reason: Dry mouth Vitamin A (Vitamin A & D Oint Ud Foilpak) 1 ea TOP Q8 PRN PRN Reason: dry lips Vitamin E (Vitamin E 400 Units Cap) 400 intlu GT DAILY [facility] Last Admin: 07/17/18 10:39 Dose: 400 intlu - Labs Labs: 07/17/18 07:53 07/17/18 07:53 PT 14.3 SECONDS (9.7-12.2) H 06/10/18 07:05 INR 1.3 06/10/18 07:05 APTT 33 SECONDS (21-34) 05/25/18 06:16 - Head Exam Head Exam: ATRAUMATIC - Eye Exam Eye Exam: Normal appearance - ENT Exam ENT Exam: Mucous Membranes Dry - Respiratory Exam Respiratory Exam: NORMAL BREATHING PATTERN - Cardiovascular Exam Cardiovascular Exam: +S1, +S2 - GI/Abdominal Exam GI & Abdominal Exam: Normal Bowel Sounds Assessment and Plan (1) Anemia Assessment & Plan: iron deficiency anemia resolved s/p IV iron anemia of chronic disease; will consider Procrit supplementation in an attempt to avoid further transfusions if hgb < 9 FOBT positive transfuse PRN Status: Acute
[2018-07-17] MEDS: guaiFENesin 100 mg/5 ml Syrup UD PO PRN (23:47)
--- NOTE | 2018-07-18 00:33 | PN ---
DATE: 07/17/2018 SUBJECTIVE: The patient was afebrile today. Her culture came back positive, and they were going to remove the PICC line and put a peripheral IV for the time-being. They are going to repeat the blood cultures tomorrow. Resident discussed the patient with me. PHYSICAL EXAMINATION: VITAL SIGNS: T-max is , heart rate 95, blood pressure 127/89, and respirations are 20. The patient was aware of these findings. LUNGS: Clear. HEART: S1, S2 are regular. ABDOMEN: Remains with a wound vac as well as a jejunostomy tube. EXTREMITIES: Have no edema. LABORATORY DATA: Her white count was 8.7 today, hemoglobin 9.1, hematocrit 27.7. Blood cultures both sides were GPCs, and urine culture is negative. Her wound culture also has been positive for Pseudomonas lately and with Yudith, so she is on antibiotics. ASSESSMENT AND PLAN: She is on vancomycin, and she is on Merrem and Mycamine at this time, and we will need probably IV line again unless they plan for the treatment of this bacteremia which is probably via the PICC line. PICC line has been sent for the culture, and if the patient still remains symptomatic with fevers, we are looking for a CT scan of the abdomen which is probably needed soon. We will follow with the primary physician. Guero Rivera MD
[2018-07-18] MEDS: Ipratropium 0.02% Inhal Soln (0.5 mg/2.5 ml) UD IH SCH ×4 (01:27→19:00)
[2018-07-18] MEDS: HYDROmorphone 1 mg/ml ISec IVP PRN ×7 (02:39→20:47)
[2018-07-18] MEDS: Sodium Chloride 0.9% 1,000 ML IV SCH ×2 (05:31→11:36)
[2018-07-18 07:41] LABS: BASO # 0.1 K/uL (0.0-0.2); EOS # 0.7 K/uL (0.0-0.7); EOS % 12.6 % (0.0-4.0); HEMOGLOBIN 9.6 g/dL (11.0-16.0); LYMPH % 36.3 % (20.0-40.0); MEAN CELL VOLUME 87.6 fL (81.0-99.0); MEAN CORPUSCULAR HEMOGLOBIN 28.8 pg (27.0-31.0); MEAN CORPUSCULAR HGB CONC 32.9 g/dL (33.0-37.0); MEAN PLATELET VOLUME 7.5 fL (7.2-11.7); MONO # 0.8 K/uL (0.0-0.8); MONO % 14.5 % (0.0-10.0); NEUT % 35.6 % (50.0-75.0); RBC 3.32 Mil/uL (3.80-5.20); RED CELL DISTRIBUTION WIDTH 17.7 % (11.5-14.5); WHITE BLOOD COUNT 5.5 K/uL (4.8-10.8)
[2018-07-18 07:56] LABS: ALB/GLOB RATIO 0.9 (1.0-2.1); ALBUMIN 2.6 g/dL (3.5-5.0); ALT/SGPT 13 U/L (9-52); AST/SGOT 12 U/L (14-36); BLOOD UREA NITROGEN 4 mg/dL (7-17); CALCIUM 8.1 mg/dl (8.6-10.4); GFR NON-AFRICAN AMERICAN > 60
[2018-07-18] MEDS: (Novolin R) Insulin Human Regular 100 units/ml vial SC SCH ×4 (08:12→21:13)
[2018-07-18] MEDS: Meropenem 1 GM in Sodium Chloride 0.9% 100 ML IVPB SCH ×2 (08:15→17:36)
--- NOTE | 2018-07-18 09:23 | CP.PCM.PN ---
Objective - Vital Signs/Intake and Output Vital Signs (last 24 hours): Temp Pulse Resp BP Pulse Ox 97.8 F 76 18 139/93 H 97 07/18/18 07:00 07/18/18 07:00 07/18/18 07:00 07/18/18 07:00 07/18/18 07:00 - Medications Medications: Current Medications Acetaminophen (Tylenol 650mg/20.3ml Solution Ud) 975 mg GT Q8H PRN PRN Reason: Pain, Mild (1-3) Last Admin: 07/17/18 23:47 Dose: 975 mg Benzocaine/Menthol (Cepacol Sore Throat) 1 sravan MT Q2H PRN PRN Reason: Sore Throat Last Admin: 07/17/18 18:47 Dose: 1 sravan Calcium Acetate (Phoslo) 667 mg GT TIDCC [facility] Last Admin: 07/18/18 08:15 Dose: 667 mg Cholestyramine Resin (Questran) 4 gm PO BID [facility] Last Admin: 07/17/18 18:46 Dose: 4 gm Dextrose (Dextrose 50% Inj) 0 ml IV STAT PRN; Protocol PRN Reason: Hypoglycemia Protocol Last Admin: 07/10/18 18:22 Dose: 25 ml Dextrose (Glutose 15) 0 gm PO ONCE PRN; Protocol PRN Reason: Hypoglycemia Protocol Enoxaparin Sodium (Lovenox) 40 mg SC DAILY [facility] Last Admin: 07/17/18 10:40 Dose: 40 mg Ergocalciferol (Drisdol 50,000 Intl Units Cap) 1 cap PO Q7D [facility] Stop: 07/20/18 10:01 Last Admin: 07/13/18 10:57 Dose: 1 cap Escitalopram Oxalate (Lexapro) 10 mg GT DAILY [facility] Last Admin: 07/17/18 10:39 Dose: 10 mg Gentamicin Sulfate (Gentamicin 0.1%) 0 gm TOP TID [facility] Last Admin: 07/17/18 18:46 Dose: 1 oin Glucagon (Glucagen Diagnostic Kit) 0 mg IM STAT PRN; Protocol PRN Reason: Hypoglycemia Protocol Guaifenesin (Robitussin) 100 mg PO Q4H PRN PRN Reason: Cough Last Admin: 07/17/18 23:47 Dose: 100 mg Hydromorphone HCl (Dilaudid) 1 mg IVP Q3H PRN PRN Reason: Pain, Mild (1-3) Last Admin: 07/18/18 08:32 Dose: 1 mg Meropenem 1 gm/ Sodium (Chloride) 100 mls @ 100 mls/hr IVPB Q8H [facility]; Protocol Last Admin: 07/18/18 08:15 Dose: 100 mls/hr Micafungin Sodium 100 mg/ (Sodium Chloride) 100 mls @ 100 mls/hr IV Q24H [facility]; Protocol Last Admin: 07/17/18 22:00 Dose: 100 mls/hr Sodium Chloride (Sodium Chloride 0.9%) 1,000 mls @ 100 mls/hr IV .Q10H [facility] Last Admin: 07/18/18 05:31 Dose: 100 mls/hr Vancomycin HCl 1,000 mg/ (Sodium Chloride) 200 mls @ 133.333 mls/hr IVPB Q12H [facility]; Protocol Last Admin: 07/18/18 05:31 Dose: 133.333 mls/hr Potassium Chloride (Potassium Chloride 20 Meq/100 Ml) 20 meq in 100 mls @ 50 mls/hr IVPB ONCE ONE Stop: 07/18/18 10:46 Insulin Human Regular (Novolin R) 0 unit SC ACHS [facility]; Protocol Last Admin: 07/18/18 08:12 Dose: Not Given Ipratropium [place] (Atrovent) 0.5 mg IH RQ6 [facility] Last Admin: 07/18/18 07:24 Dose: Not Given Loperamide HCl (Imodium) 1 mg PO Q2H PRN PRN Reason: Diarrhea Last Admin: 07/17/18 18:46 Dose: 1 mg Loratadine (Claritin) 10 mg PO DAILY [facility] Last Admin: 07/17/18 10:39 Dose: 10 mg Lorazepam (Ativan) 1 mg IVP BID [facility] Last Admin: 07/17/18 18:45 Dose: 1 mg Metoprolol Tartrate (Lopressor) 12.5 mg PEG BID [facility] Last Admin: 07/17/18 18:46 Dose: 12.5 mg Nicotine (Nicoderm Cq) 1 patch TD DAILY [facility] Last Admin: 07/17/18 10:39 Dose: 1 patch Ondansetron HCl (Zofran Inj) 4 mg IVP Q6H PRN PRN Reason: Nausea/Vomiting Last Admin: 07/17/18 23:47 Dose: 4 mg Pantoprazole Sodium (Protonix Susp) 40 mg PO DAILY [facility] Last Admin: 07/17/18 10:39 Dose: 40 mg Saliva Substitute (Mouth Kote 236 Ml) 0 ml MM Q6 PRN PRN Reason: Dry mouth Vitamin A (Vitamin A & D Oint Ud Foilpak) 1 ea TOP Q8 PRN PRN Reason: dry lips Vitamin E (Vitamin E 400 Units Cap) 400 intlu GT DAILY [facility] Last Admin: 07/17/18 10:39 Dose: 400 intlu - Labs Labs: 07/18/18 07:34 07/18/18 07:34 PT 14.3 SECONDS (9.7-12.2) H 06/10/18 07:05 INR 1.3 06/10/18 07:05 APTT 33 SECONDS (21-34) 05/25/18 06:16
--- NOTE | 2018-07-18 09:31 | CP.PCM.PN ---
Subjective - Date & Time of Evaluation Date of Evaluation: 07/18/18 Time of Evaluation: 08:30 - Subjective Subjective: Medicine Progress Note for Hospitalist Service Pt seen and examined at bedside this am. Reports having fever and chills overnight, which made it difficult for her to sleep. PICC line removed yesterday. 200 cc noted in NGT from overnight shift. Pt reports discharge at site of her gastrostomy tube, reports the discharge has been yellowish for the past several days. Denies headache, dizziness, chest pain, sob, n/v/d/c, abd pain, urinary complaints, or other symptoms. Pt reports feeling very tired this am. Objective - Vital Signs/Intake and Output Vital Signs (last 24 hours): Temp Pulse Resp BP Pulse Ox 97.8 F 76 18 139/93 H 97 07/18/18 07:00 07/18/18 07:00 07/18/18 07:00 07/18/18 07:00 07/18/18 07:00 - Medications Medications: Current Medications Acetaminophen (Tylenol 650mg/20.3ml Solution Ud) 975 mg GT Q8H PRN PRN Reason: Pain, Mild (1-3) Last Admin: 07/17/18 23:47 Dose: 975 mg Benzocaine/Menthol (Cepacol Sore Throat) 1 sravan MT Q2H PRN PRN Reason: Sore Throat Last Admin: 07/17/18 18:47 Dose: 1 sravan Calcium Acetate (Phoslo) 667 mg GT TIDCC [facility] Last Admin: 07/18/18 08:15 Dose: 667 mg Cholestyramine Resin (Questran) 4 gm PO BID [facility] Last Admin: 07/17/18 18:46 Dose: 4 gm Dextrose (Dextrose 50% Inj) 0 ml IV STAT PRN; Protocol PRN Reason: Hypoglycemia Protocol Last Admin: 07/10/18 18:22 Dose: 25 ml Dextrose (Glutose 15) 0 gm PO ONCE PRN; Protocol PRN Reason: Hypoglycemia Protocol Enoxaparin Sodium (Lovenox) 40 mg SC DAILY [facility] Last Admin: 07/17/18 10:40 Dose: 40 mg Ergocalciferol (Drisdol 50,000 Intl Units Cap) 1 cap PO Q7D [facility] Stop: 07/20/18 10:01 Last Admin: 07/13/18 10:57 Dose: 1 cap Escitalopram Oxalate (Lexapro) 10 mg GT DAILY [facility] Last Admin: 07/17/18 10:39 Dose: 10 mg Gentamicin Sulfate (Gentamicin 0.1%) 0 gm TOP TID [facility] Last Admin: 07/17/18 18:46 Dose: 1 oin Glucagon (Glucagen Diagnostic Kit) 0 mg IM STAT PRN; Protocol PRN Reason: Hypoglycemia Protocol Guaifenesin (Robitussin) 100 mg PO Q4H PRN PRN Reason: Cough Last Admin: 07/17/18 23:47 Dose: 100 mg Hydromorphone HCl (Dilaudid) 1 mg IVP Q3H PRN PRN Reason: Pain, Mild (1-3) Last Admin: 07/18/18 08:32 Dose: 1 mg Meropenem 1 gm/ Sodium (Chloride) 100 mls @ 100 mls/hr IVPB Q8H [facility]; Protocol Last Admin: 07/18/18 08:15 Dose: 100 mls/hr Micafungin Sodium 100 mg/ (Sodium Chloride) 100 mls @ 100 mls/hr IV Q24H [facility]; Protocol Last Admin: 07/17/18 22:00 Dose: 100 mls/hr Sodium Chloride (Sodium Chloride 0.9%) 1,000 mls @ 100 mls/hr IV .Q10H [facility] Last Admin: 07/18/18 05:31 Dose: 100 mls/hr Vancomycin HCl 1,000 mg/ (Sodium Chloride) 200 mls @ 133.333 mls/hr IVPB Q12H [facility]; Protocol Last Admin: 07/18/18 05:31 Dose: 133.333 mls/hr Potassium Chloride (Potassium Chloride 20 Meq/100 Ml) 20 meq in 100 mls @ 50 mls/hr IVPB ONCE ONE Stop: 07/18/18 10:46 Insulin Human Regular (Novolin R) 0 unit SC ACHS [facility]; Protocol Last Admin: 07/18/18 08:12 Dose: Not Given Ipratropium [place] (Atrovent) 0.5 mg IH RQ6 [facility] Last Admin: 07/18/18 07:24 Dose: Not Given Loperamide HCl (Imodium) 1 mg PO Q2H PRN PRN Reason: Diarrhea Last Admin: 07/17/18 18:46 Dose: 1 mg Loratadine (Claritin) 10 mg PO DAILY [facility] Last Admin: 07/17/18 10:39 Dose: 10 mg Lorazepam (Ativan) 1 mg IVP BID [facility] Last Admin: 07/17/18 18:45 Dose: 1 mg Metoprolol Tartrate (Lopressor) 12.5 mg PEG BID [facility] Last Admin: 07/17/18 18:46 Dose: 12.5 mg Nicotine (Nicoderm Cq) 1 patch TD DAILY [facility] Last Admin: 07/17/18 10:39 Dose: 1 patch Ondansetron HCl (Zofran Inj) 4 mg IVP Q6H PRN PRN Reason: Nausea/Vomiting Last Admin: 07/17/18 23:47 Dose: 4 mg Pantoprazole Sodium (Protonix Susp) 40 mg PO DAILY [facility] Last Admin: 07/17/18 10:39 Dose: 40 mg Saliva Substitute (Mouth Kote 236 Ml) 0 ml MM Q6 PRN PRN Reason: Dry mouth Vitamin A (Vitamin A & D Oint Ud Foilpak) 1 ea TOP Q8 PRN PRN Reason: dry lips Vitamin E (Vitamin E 400 Units Cap) 400 intlu GT DAILY [facility] Last Admin: 07/17/18 10:39 Dose: 400 intlu - Labs Labs: 07/18/18 07:34 07/18/18 07:34 PT 14.3 SECONDS (9.7-12.2) H 06/10/18 07:05 INR 1.3 06/10/18 07:05 APTT 33 SECONDS (21-34) 05/25/18 06:16 - Constitutional Appears: Non-toxic, No Acute Distress, Chronically Ill - Head Exam Head Exam: ATRAUMATIC, NORMOCEPHALIC - Eye Exam Eye Exam: EOMI, Normal appearance, PERRL - ENT Exam ENT Exam: Mucous Membranes Moist Additional comments: NGT in place, not dislodged - Respiratory Exam Respiratory Exam: Clear to Ausculation Bilateral, NORMAL BREATHING PATTERN. absent: Rales, Rhonchi, Wheezes - Cardiovascular Exam Cardiovascular Exam: REGULAR RHYTHM, +S1, +S2. absent: Gallop, Rubs, Murmur - GI/Abdominal Exam GI & Abdominal Exam: Soft, Normal Bowel Sounds. absent: Distended, Firm, Guarding, Rigid, Tenderness, Organomegaly Additional comments: Abdominal wound vac in place c/d/i, yellowish discharge noted at gastrostomy tube site without tenderness to palpation - Extremities Exam Extremities Exam: Full ROM, Normal Capillary Refill, Normal Inspection. 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 Harley) consulted - awaiting Dr Mccray's response on surgical intervention; f/u with surgical team regarding dispo Wound vac to continuous suction, to be replaced Q72hrs Heme/onc (Dr. Cash) consulted for Fe status - repeat ferritin 185, no need for iron infusion at this time, continue to monitor Other cultures: 06/22/18: abd incision => Pseudomonas aeruginosa sensitive to Meropenem 06/22/18: Peg site => Pseudomonas aeruginosa sensitive to Meropenem 05/14/18: Peritoneal fluid => Pseudomonas aeruginosa sensitive to Meropenem 05/23/18: Wound cx => Chula albicans 05/15/18, 05/22/18: Blood cx => no growth 05/22/18: Urine cx => no growth 05/31/18: Incision site => Enterococcus faecalis, Acinetobacter baumannii 06/03/18: Stool cxs => No Salmonella, Shigella, or Campylobacter isolates 06/13/18: Repeat wound cx => Coag-neg Staph, Enterococcus raffinosus 07/12/18 Repeat wound cx growing Pseudomonas and Chula Lusitaniae 07/14/18 repeat blood cxs NG 07/15/18 repeat blood cxs through central line NG 07/15/18 Sputum cx no growth 07/15/18 Urine cx no growth 07/16/18 repeat blood cx through central line growing gram-pos cocci; PICC line removed over weekend Antibiotics: Continue Meropenem 1 g q 8 h IVPB ; restarted as per ID due to pos abd wound cx (07/12) Vancomycin 1 g IV q 12 h started 07/16 Cipro 400 mg IV q 12h d/c'd (started 06/02/18, last day 06/16/18) Flagyl 500 mg IVPB q 8 h completed (active from 05/15/18-06/19/18) Micafungin 100mg IV Q24hrs Continue Gentamicin 0.1% TOP TID apply cream to peg tube site F/u vitamin levels and replace as needed: Vit D < 12.8, 91046 U q1 wk x 8 wks B12 707, wnl; repeat B12 508 Folate 12.6, wnl Vit A 42, wnl Alpha vit E 5.6, wnl Zinc level wnl Vit A, B1, B6, E levels reordered on 06/15 Vit B1: inappropriately submitted, 06/01/18 valve acceptable Vit B6: 5.9, wnl Vit A, E collected Repeat Vitamin levels ordered on 07/08, f/u results 07/08: Pre-albumin 11.6, B12 508, 25-OH vit D < 12.8, vit A 33 As per support manager recs on 07/11, will adjust Jevity feeds for pt's updated weight for optimal nutrition C/w Tylenol 975 mg liquid q 8h, Dilaudid 1 mg q 3 h prn, Zofran 4 mg IV q 6 h prn Fever, possible sepsis - Fever 101 @ 7 am yesterday, afebrile this morning - abdominal wound culture shows chula and pseudomonas - chest x ray - lungs clear to auscultation b/l, no acute findings - Repeat portable chest x ray 07/18 - in situ NGT, the tip of which overlies the lower mediastinum and must be advanced. no acute infiltrates. - f/u blood cultures from peripheral source and picc line source - Gram positive Cocci - PICC Line removed today (07/17) - picc line sent for culture - follow up cath culture - f/u sputum cultures - normal renetta - Urine culture - no growth, final - WBC 07/18 - 5.5 -f/u Bl Doppler to rule out DVT - no DVT bilaterally, (pending official report) -VBG/lactate level - ph: 7.45, pCO2: 39, lactate 0.9 - Normal saline @ 100mls/hr - continue tylenol for fevers -abx: Meropenem 1 g q 8 h IVPB Vancomycin 1 g IV q 12 h - follow up vanc trough - follow Dr Nicole leon - continue abx Tachycardia, persistent, hx into 110s-130s - possible etiologies include pain, infection, anxiety Today HR - 74, continue to monitor and trend Ativan prn, Dilaudid prn C/w metoprolol tartrate 12.5 mg bid F/U C.diff toxin A and B Diarrhea- suspect 2/2 PO intake by patient C. Diff (05/22, 05/24, 05/28) neg Stool ova and parasites (05/25/18) neg Stool leukocytes (05/25/18) neg Imodium 1 mg PO q 2h prn Anxiety [employer] consulted - pt refusing at this time Psych consulted (Dr. Reyez) - managing Ativan, c/w prn Lexapro 10 mg GT daily (started 05/31) Insomnia - Benadryl d/c'd, clinically not indicated Anemia, acute, stable, pt denies blood in stool Total 2 PRBC (on 05/16) and 4 FFP (on 05/15 and 05/16) 07/18 hb 9.6, hct: 29.1 Iron 16, TIBC 205, % sat 4.7, repeat ferritin 185 after Ferrlecit Monitor CBC q2d Per Dr. Cash, consider Procrit supplementation in attempt to avoid further transfusions if Hgb < 9 Thrombocytosis - suspect reactive to pain, surgery; resolved 07/18 platelets: 271 DM2, controlled From prior note: admittedly non-compliant, has not taken Januvia for 1 y Accuchecks q6h Hypoglycemic protocol ISS regular HgbA1c 5.8 Hx gastric bypass surgery Hypercholesterolemia, untx LDL < 30, HDL < 23, Chol 59, TG 195 (06/03/18) Hx gastric bypass surgery Questran 4 g PO bid Hx HTN, controlled Since gastric bypass has not taken meds Metoprolol 12.5 mg bid Hx Asthma - Chronic Continue to monitor Atrovent prn C/o productive cough on and off today, Robitussin prn, defer steroids at this time due to concern for wound healing s/p surgical procedures Added Claritin 10 daily for allergy sxs Nicotine use disorder - Chronic From prior note: 1 ppd x 20 y, 1/2 ppd x 3 y C/w Nicoderm patch Electrolyte imbalance - Hypokalemia, Hypomagnesemia, resolving F/u am labs, replete as needed Mg 1.6, K 3.5 - monitor and follow am labs tomorrow PPX, Diet, Dispo Hydrocortisone 1% cream top tid for R upper inner arm macular rash - improved Vitamin A+D top q 8h prn for dry lips Saliva substitute q 6 h prn for dry mouth IVF not indicated at this time VTE ppx: Lovenox 40 subQ d, SCDs, encourage ambulation GI ppx: Protonix 40 mg IV bid, Florastor bid Code status: Full code Continue PT services, follow up recs Dispo: Continue to optimize patient for reversal surgery. Dr. Harley to coordinate with Dr. Mccray plan for intervention. Pt to remain inpatient until reversal procedure performed by surgical team. Pt seen, examined with, and plan d/w Dr. Turk, attending. Morris Connolly DO PGY-1, [facility] [place] Pager #[phone]
[2018-07-18] MEDS: Pantoprazole 40 mg Susp UD PO SCH (10:10)
[2018-07-18] MEDS: Enoxaparin 40 mg Syringe SC SCH (10:11)
[2018-07-18] MEDS: guaiFENesin 100 mg/5 ml Syrup UD PO PRN ×2 (10:11→18:31)
[2018-07-18] MEDS: Loperamide Hydrochloride 1 mg/5 ml Cup PO PRN ×2 (10:12→18:31)
[2018-07-18] MEDS: GENTAMICIN 0.1% TOP SCH ×3 (10:13→18:32)
[2018-07-18] MEDS: Cholestyramine 4 gm/Pkt UD PO SCH ×2 (10:15→18:31)
[2018-07-18] MEDS: Benzocaine/Menthol (Cepacol) Lozenge MT PRN (10:25)
--- NOTE | 2018-07-18 11:10 | CP.PCM.PN ---
Subjective - Date & Time of Evaluation Date of Evaluation: 07/18/18 Time of Evaluation: 11:00 - Subjective Subjective: dictated Objective - Vital Signs/Intake and Output Vital Signs (last 24 hours): Temp Pulse Resp BP Pulse Ox 97.8 F 76 18 139/93 H 97 07/18/18 07:00 07/18/18 07:00 07/18/18 07:00 07/18/18 07:00 07/18/18 07:00 - Medications Medications: Current Medications Acetaminophen (Tylenol 650mg/20.3ml Solution Ud) 975 mg GT Q8H PRN PRN Reason: Pain, Mild (1-3) Last Admin: 07/17/18 23:47 Dose: 975 mg Benzocaine/Menthol (Cepacol Sore Throat) 1 sravan MT Q2H PRN PRN Reason: Sore Throat Last Admin: 07/18/18 10:25 Dose: 1 sravan Calcium Acetate (Phoslo) 667 mg GT TIDCC [facility] Last Admin: 07/18/18 08:15 Dose: 667 mg Cholestyramine Resin (Questran) 4 gm PO BID [facility] Last Admin: 07/18/18 10:15 Dose: 4 gm Dextrose (Dextrose 50% Inj) 0 ml IV STAT PRN; Protocol PRN Reason: Hypoglycemia Protocol Last Admin: 07/10/18 18:22 Dose: 25 ml Dextrose (Glutose 15) 0 gm PO ONCE PRN; Protocol PRN Reason: Hypoglycemia Protocol Enoxaparin Sodium (Lovenox) 40 mg SC DAILY [facility] Last Admin: 07/18/18 10:11 Dose: 40 mg Ergocalciferol (Drisdol 50,000 Intl Units Cap) 1 cap PO Q7D [facility] Stop: 07/20/18 10:01 Last Admin: 07/13/18 10:57 Dose: 1 cap Escitalopram Oxalate (Lexapro) 10 mg GT DAILY [facility] Last Admin: 07/18/18 10:14 Dose: 10 mg Gentamicin Sulfate (Gentamicin 0.1%) 0 gm TOP TID [facility] Last Admin: 07/18/18 10:13 Dose: 1 oin Glucagon (Glucagen Diagnostic Kit) 0 mg IM STAT PRN; Protocol PRN Reason: Hypoglycemia Protocol Guaifenesin (Robitussin) 100 mg PO Q4H PRN PRN Reason: Cough Last Admin: 07/18/18 10:11 Dose: 100 mg Hydromorphone HCl (Dilaudid) 1 mg IVP Q3H PRN PRN Reason: Pain, Mild (1-3) Last Admin: 07/18/18 08:32 Dose: 1 mg Meropenem 1 gm/ Sodium (Chloride) 100 mls @ 100 mls/hr IVPB Q8H [facility]; Protocol Last Admin: 07/18/18 08:15 Dose: 100 mls/hr Micafungin Sodium 100 mg/ (Sodium Chloride) 100 mls @ 100 mls/hr IV Q24H [facility]; Protocol Last Admin: 07/17/18 22:00 Dose: 100 mls/hr Sodium Chloride (Sodium Chloride 0.9%) 1,000 mls @ 100 mls/hr IV .Q10H [facility] Last Admin: 07/18/18 05:31 Dose: 100 mls/hr Vancomycin HCl 1,000 mg/ (Sodium Chloride) 200 mls @ 133.333 mls/hr IVPB Q12H [facility]; Protocol Last Admin: 07/18/18 05:31 Dose: 133.333 mls/hr Insulin Human Regular (Novolin R) 0 unit SC ACHS [facility]; Protocol Last Admin: 07/18/18 08:12 Dose: Not Given Ipratropium [place] (Atrovent) 0.5 mg IH RQ6 [facility] Last Admin: 07/18/18 07:24 Dose: Not Given Loperamide HCl (Imodium) 1 mg PO Q2H PRN PRN Reason: Diarrhea Last Admin: 07/18/18 10:12 Dose: 1 mg Loratadine (Claritin) 10 mg PO DAILY [facility] Last Admin: 07/18/18 10:11 Dose: 10 mg Lorazepam (Ativan) 1 mg IVP BID [facility] Last Admin: 07/18/18 10:15 Dose: 1 mg Metoprolol Tartrate (Lopressor) 12.5 mg PEG BID [facility] Last Admin: 07/18/18 10:10 Dose: 12.5 mg Nicotine (Nicoderm Cq) 1 patch TD DAILY [facility] Last Admin: 07/18/18 10:13 Dose: 1 patch Ondansetron HCl (Zofran Inj) 4 mg IVP Q6H PRN PRN Reason: Nausea/Vomiting Last Admin: 07/17/18 23:47 Dose: 4 mg Pantoprazole Sodium (Protonix Susp) 40 mg PO DAILY [facility] Last Admin: 07/18/18 10:10 Dose: 40 mg Saliva Substitute (Mouth Kote 236 Ml) 0 ml MM Q6 PRN PRN Reason: Dry mouth Vitamin A (Vitamin A & D Oint Ud Foilpak) 1 ea TOP Q8 PRN PRN Reason: dry lips Vitamin E (Vitamin E 400 Units Cap) 400 intlu GT DAILY [facility] Last Admin: 07/18/18 10:12 Dose: 400 intlu - Labs Labs: 07/18/18 07:34 07/18/18 07:34 PT 14.3 SECONDS (9.7-12.2) H 06/10/18 07:05 INR 1.3 06/10/18 07:05 APTT 33 SECONDS (21-34) 05/25/18 06:16
--- NOTE | 2018-07-18 14:51 | RAD ---
Date of service: 07/18/2018 HISTORY: NGT re-positioned COMPARISON: Comparison chest 07/17/2018 FINDINGS: In situ NGT, the tip of which overlies left upper quadrant of the abdomen. Previous noted right-sided PICC line no longer visible. LUNGS: Minor bibasilar atelectasis PLEURA: No significant pleural effusion identified, no pneumothorax apparent. CARDIOVASCULAR: Cardiomegaly. OSSEOUS STRUCTURES: No significant abnormalities. VISUALIZED UPPER ABDOMEN: Normal. OTHER FINDINGS: None. IMPRESSION: Minor bibasilar atelectasis. In situ NGT again noted as above
--- NOTE | 2018-07-18 15:33 | PN ---
DATE: 07/18/2018 SUBJECTIVE: The patient right now that she is waiting still for the surgery. She got a blood infection and she thinks that she waited too long and she is getting disheartened again, but I tried to console her but now with a positive blood culture we need to treat her. She also needs an echocardiogram. Further ID and sensitivity is pending. PICC line has been discontinued and she has a peripheral IV at this time. PHYSICAL EXAMINATION: GENERAL: She is awake, alert with NG tube and remains in isolation. VITAL SIGNS: T-max was 99.8 yesterday, now it is 97.8, pulse 139/93, respirations are 18 and saturations 97. HEAD: Atraumatic, normocephalic. NECK: Supple. LUNGS: Clear. HEART: S1, S2, regular. ABDOMEN: Soft, nontender, has a wound vac present and ostomy tube present. EXTREMITIES: Have no edema. LABORATORY DATA: White count is 5.5 and platelets are unremarkable. Chemistry shows creatinine is 0.4. Blood cultures are coagulase gram-positive cocci. ASSESSMENT AND PLAN: She is on vancomycin, Merrem, and micafungin for now. She also needs an echocardiogram to rule out endocarditis with this new bacteremia, we will order one and will follow. The patient needs to clear the bacteremia before she gets operated again. The patient did come in with necrotizing, ischemic bowel and she needs the gastrointestinal tract to be reconstructed. We will follow. Guero Rivera MD
--- NOTE | 2018-07-18 16:52 | CARD ---
APPROVED REPORT Date of service: 07/18/2018 EXAM: Two-dimensional and M-mode echocardiogram with Doppler and color Doppler. Other Information Quality : GoodRhythm : INDICATION Infection:Rule out subacute bacterial endocarditis RISK FACTORS Hypertension Hyperlipidemia Diabetes 2D DIMENSIONS IVSd0.9 (0.7-1.1cm)LVDd4.5 (3.9-5.9cm) PWd0.9 (0.7-1.1cm)LA [id number] (18-58mL) LVDs2.9 (2.5-4.0cm)FS (%) 36.8 % LVEF (%)66.8 (>50%)LVEF (Roberts's)56.60 % M-Mode DIMENSIONS Left Atrium (MM)3.96 (2.5-4.0cm)IVSd0.80 (0.7-1.1cm) Aortic Root3.39 (2.2-3.7cm)LVDd4.74 (4.0-5.6cm) Aortic Cusp Exc.2.37 (1.5-2.0cm)PWd0.72 (0.7-1.1cm) FS (%) 33 %LVDs3.18 (2.0-3.8cm) LVEF (%)61 (>50%) Mitral Valve MV E Iizwjzmo03.6cm/sMV A Vgskcqmo53.0cm/sE/A ratio0.9 TDI Lateral E' Peak V7.32cm/sMedial E' Peak V7.58cm/sE/Lateral E'10.3 E/Medial E'10.0 Tricuspid Valve TR Peak [id number]/sTR Peak [id number] LEFT VENTRICLE The left ventricle is normal size. There is normal left ventricular wall thickness. The left ventricular function is normal. The left ventricular ejection fraction is within the normal range. There is normal LV segmental wall motion. Transmitral Doppler flow pattern is Grade I-abnormal relaxation pattern. RIGHT VENTRICLE The right ventricle is normal size. There is normal right ventricular wall thickness. The right ventricular systolic function is normal. ATRIA The left atrium size is normal. The right atrium size is normal. AORTIC VALVE The aortic valve is mildly thickened. No aortic regurgitation is present. There is no aortic valvular stenosis. MITRAL VALVE The mitral valve is moderately thickened. There is no mitral valve stenosis. There is no mitral valve regurgitation noted. TRICUSPID VALVE The tricuspid valve is normal in structure. There is trace tricuspid regurgitation. PULMONIC VALVE The pulmonary valve is normal in structure. There is trace pulmonic valvular regurgitation. GREAT VESSELS The aortic root is normal in size. The IVC is normal in size and collapses >50% with inspiration. <Conclusion> The aortic valve is mildly thickened. The mitral valve is moderately thickened. No vegitation seen
[2018-07-18] MEDS: Micafungin 100 MG in Sodium Chloride 0.9% 100 ML IV SCH (22:00)
[2018-07-18 22:16] LABS: VITAMIN C 0.8 mg/dL (0.3-2.7)
[2018-07-19] MEDS: Meropenem 1 GM in Sodium Chloride 0.9% 100 ML IVPB SCH ×3 (00:49→14:45)
[2018-07-19] MEDS: HYDROmorphone 1 mg/ml ISec IVP PRN ×8 (03:03→22:02)
[2018-07-19] MEDS: (Novolin R) Insulin Human Regular 100 units/ml vial SC SCH ×4 (07:23→22:05)
--- NOTE | 2018-07-19 09:05 | CP.PCM.PN ---
Subjective - Date & Time of Evaluation Date of Evaluation: 07/19/18 Time of Evaluation: 10:00 - Subjective Subjective: Jose Angel Cornelius PGY-1, Medicine progress note Pt seen and examined at bedside this am. No acute events overnight. Pt's diffuse abdominal pain has not changed in nature or quality.Denies headache, dizziness, chest pain, sob, n/v/d/c, abd pain, urinary complaints, or other symptoms. Pt reports 3 epidosde of diarrhea yesterday, nonbloody, nonbilious. Wound vac was changed by surgery team prior to evaluation. Objective - Vital Signs/Intake and Output Vital Signs (last 24 hours): Temp Pulse Resp BP Pulse Ox 98.1 F 76 20 134/89 97 07/19/18 07:00 07/19/18 07:00 07/19/18 07:00 07/19/18 07:00 07/19/18 07:00 Intake and Output: 07/19/18 07/19/18 06:59 18:59 Intake Total 900 Output Total 610 Balance 290 - Medications Medications: Current Medications Acetaminophen (Tylenol 650mg/20.3ml Solution Ud) 975 mg GT Q8H PRN PRN Reason: Pain, Mild (1-3) Last Admin: 07/17/18 23:47 Dose: 975 mg Benzocaine/Menthol (Cepacol Sore Throat) 1 sravan MT Q2H PRN PRN Reason: Sore Throat Last Admin: 07/18/18 10:25 Dose: 1 sravan Calcium Acetate (Phoslo) 667 mg GT TIDCC [facility] Last Admin: 07/19/18 08:13 Dose: 667 mg Cholestyramine Resin (Questran) 4 gm PO BID [facility] Last Admin: 07/18/18 18:31 Dose: 4 gm Dextrose (Dextrose 50% Inj) 0 ml IV STAT PRN; Protocol PRN Reason: Hypoglycemia Protocol Last Admin: 07/10/18 18:22 Dose: 25 ml Dextrose (Glutose 15) 0 gm PO ONCE PRN; Protocol PRN Reason: Hypoglycemia Protocol Enoxaparin Sodium (Lovenox) 40 mg SC DAILY [facility] Last Admin: 07/18/18 10:11 Dose: 40 mg Ergocalciferol (Drisdol 50,000 Intl Units Cap) 1 cap PO Q7D [facility] Stop: 07/20/18 10:01 Last Admin: 07/13/18 10:57 Dose: 1 cap Escitalopram Oxalate (Lexapro) 10 mg GT DAILY [facility] Last Admin: 07/18/18 10:14 Dose: 10 mg Gentamicin Sulfate (Gentamicin 0.1%) 0 gm TOP TID [facility] Last Admin: 07/18/18 18:32 Dose: 1 oin Glucagon (Glucagen Diagnostic Kit) 0 mg IM STAT PRN; Protocol PRN Reason: Hypoglycemia Protocol Guaifenesin (Robitussin) 100 mg PO Q4H PRN PRN Reason: Cough Last Admin: 07/18/18 18:31 Dose: 100 mg Hydromorphone HCl (Dilaudid) 1 mg IVP Q3H PRN PRN Reason: Pain, Mild (1-3) Last Admin: 07/19/18 06:09 Dose: 1 mg Meropenem 1 gm/ Sodium (Chloride) 100 mls @ 100 mls/hr IVPB Q8H [facility]; Protocol Last Admin: 07/19/18 08:13 Dose: 100 mls/hr Micafungin Sodium 100 mg/ (Sodium Chloride) 100 mls @ 100 mls/hr IV Q24H [facility]; Protocol Last Admin: 07/18/18 22:00 Dose: 100 mls/hr Vancomycin HCl 1,000 mg/ (Sodium Chloride) 200 mls @ 133.333 mls/hr IVPB Q12H [facility]; Protocol Last Admin: 07/19/18 05:27 Dose: 133.333 mls/hr Insulin Human Regular (Novolin R) 0 unit SC ACHS [facility]; Protocol Last Admin: 07/19/18 07:23 Dose: Not Given Ipratropium [place] (Atrovent) 0.5 mg IH RQ6 [facility] Last Admin: 07/18/18 19:00 Dose: 0.5 mg Loperamide HCl (Imodium) 1 mg PO Q2H PRN PRN Reason: Diarrhea Last Admin: 07/18/18 18:31 Dose: 1 mg Loratadine (Claritin) 10 mg PO DAILY [facility] Last Admin: 07/18/18 10:11 Dose: 10 mg Lorazepam (Ativan) 1 mg IVP BID [facility] Last Admin: 07/18/18 18:31 Dose: 1 mg Metoprolol Tartrate (Lopressor) 12.5 mg PEG BID [facility] Last Admin: 07/18/18 18:31 Dose: 12.5 mg Nicotine (Nicoderm Cq) 1 patch TD DAILY [facility] Last Admin: 07/18/18 10:13 Dose: 1 patch Ondansetron HCl (Zofran Inj) 4 mg IVP Q6H PRN PRN Reason: Nausea/Vomiting Last Admin: 07/18/18 14:38 Dose: 4 mg Pantoprazole Sodium (Protonix Susp) 40 mg PO DAILY [facility] Last Admin: 07/18/18 10:10 Dose: 40 mg Saliva Substitute (Mouth Kote 236 Ml) 0 ml MM Q6 PRN PRN Reason: Dry mouth Vitamin A (Vitamin A & D Oint Ud Foilpak) 1 ea TOP Q8 PRN PRN Reason: dry lips Vitamin E (Vitamin E 400 Units Cap) 400 intlu GT DAILY [facility] Last Admin: 07/18/18 10:12 Dose: 400 intlu - Labs Labs: 07/18/18 07:34 07/18/18 07:34 PT 14.3 SECONDS (9.7-12.2) H 06/10/18 07:05 INR 1.3 06/10/18 07:05 APTT 33 SECONDS (21-34) 05/25/18 06:16 - Constitutional Appears: Non-toxic, No Acute Distress - Head Exam Head Exam: NORMAL INSPECTION, NORMOCEPHALIC - Eye Exam Eye Exam: EOMI, Normal appearance - ENT Exam ENT Exam: Mucous Membranes Moist Additional comments: (+) NGT in place - Neck Exam Neck Exam: Normal Inspection - Respiratory Exam Respiratory Exam: Clear to Ausculation Bilateral, NORMAL BREATHING PATTERN. absent: Decreased Breath Sounds, Rales, Rhonchi, Wheezes, Respiratory Distress - Cardiovascular Exam Cardiovascular Exam: REGULAR RHYTHM, +S1, +S2 - GI/Abdominal Exam GI & Abdominal Exam: Soft, Normal Bowel Sounds. absent: Distended, Firm, Guarding, Rigid, Tenderness Additional comments: (+) wound vac in place over midline abdominal incision; c/d/i; no tenderness, no signs of bleeding; no erythema or discharge (+) PEG tube in place - Extremities Exam Extremities Exam: Normal Capillary Refill, Normal Inspection, Pedal Edema (trace nonpitting edema) - Neurological Exam Neurological Exam: Alert, Awake, Oriented x3 - Psychiatric Exam Psychiatric exam: Normal Affect, Normal Mood - Skin Skin Exam: Dry, Normal Color, Warm Assessment and Plan - Assessment and Plan (Free Text) Assessment: Ischemic bowel disease 2/2 internal hernia producing bowel obstruction Current drains include: NGT (intermittent suction per surgery recs) replaced on 07/09/18 by surgery team, gastrostomy tube (replaced 06/10/18) Latest wound cultures: -Abd incision, Peg incision site => Pseudomonas aeruginosa, sensitive to Meropenem -Per ID: Meropenem 1 g q 8 h (d/c 07/11; restarted 07/12), Vancomycin 1.5 g IVPB q 12 h (d/c on 07/05/18; restarted Vanco 1 g q 12h on 07/16) -vanco trough 07/05 -- 15.1 -Repeat abd wound cx 07/12 growing Pseudomonas and Chula Lusitaniae Surgery (Dr. Harley) consulted - awaiting Dr Mccray's response on surgical intervention; f/u with surgical team regarding dispo Wound vac to continuous suction, to be replaced Q72hrs Heme/onc (Dr. Cash) consulted for Fe status - repeat ferritin 185, no need for iron infusion at this time, continue to monitor Other cultures: 06/22/18: abd incision => Pseudomonas aeruginosa sensitive to Meropenem 06/22/18: Peg site => Pseudomonas aeruginosa sensitive to Meropenem 05/14/18: Peritoneal fluid => Pseudomonas aeruginosa sensitive to Meropenem 05/23/18: Wound cx => Chula albicans 05/15/18, 05/22/18: Blood cx => no growth 05/22/18: Urine cx => no growth 05/31/18: Incision site => Enterococcus faecalis, Acinetobacter baumannii 06/03/18: Stool cxs => No Salmonella, Shigella, or Campylobacter isolates 06/13/18: Repeat wound cx => Coag-neg Staph, Enterococcus raffinosus 07/12/18 Repeat wound cx growing Pseudomonas and Chula Lusitaniae 07/14/18 repeat blood cxs NG 07/15/18 repeat blood cxs through central line NG 07/15/18 Sputum cx no growth 07/15/18 Urine cx no growth 07/16/18 blood culture x2 via PICC line grew E. faecalis sensitive to vancomycin -Echocardiogram (07/18) shows EF approximately 56%, AV mildly thickened, MV moderately thickened. No vegetation. 07/18/18: Antibiotics: Continue Meropenem 1 g q 8 h IVPB ; restarted as per ID due to pos abd wound cx (07/12) Vancomycin 1 g IV q 12 h started 07/16 Cipro 400 mg IV q 12h d/c'd (started 06/02/18, last day 06/16/18) Flagyl 500 mg IVPB q 8 h completed (active from 05/15/18-06/19/18) Micafungin 100mg IV Q24hrs Continue Gentamicin 0.1% TOP TID apply cream to peg tube site F/u vitamin levels and replace as needed: Vit D < 12.8, 63152 U q1 wk x 8 wks B12 707, wnl; repeat B12 508 Folate 12.6, wnl Vit A 42, wnl Alpha vit E 5.6, wnl Zinc level wnl Vit A, B1, B6, E levels reordered on 06/15 Vit B1: inappropriately submitted, 06/01/18 valve acceptable Vit B6: 5.9, wnl Vit A, E collected Repeat Vitamin levels ordered on 07/08, f/u results 07/08: Pre-albumin 11.6, B12 508, 25-OH vit D < 12.8, vit A 33 As per specimen collector recs on 07/15, feeds changed to Jevity 1.5 with goal rate 50 mL C/w Tylenol 975 mg liquid q 8h, Dilaudid 1 mg q 3 h prn, Zofran 4 mg IV q 6 h prn Fever, possible sepsis - Fever 101 @ 7 am yesterday, afebrile this morning - abdominal wound culture shows chula and pseudomonas - chest x ray - lungs clear to auscultation b/l, no acute findings - Repeat portable chest x ray 07/18 - in situ NGT, the tip of which overlies the lower mediastinum and must be advanced. no acute infiltrates. - PICC Line removed(07/17) - catheter tip culture is negative for growth - f/u sputum cultures - normal renetta - Urine culture - no growth, final - WBC 07/18 - 5.5 -f/u Bl Doppler to rule out DVT - no DVT bilaterally, (pending official report) -VBG/lactate level - ph: 7.45, pCO2: 39, lactate 0.9 - Normal saline @ 100mls/hr - continue tylenol for fevers -abx: Meropenem 1 g q 8 h IVPB Vancomycin 1 g IV q 12 h - random vanc is 11.2 - blood culture through picc line grew E. faecalis sensitive to vancomycin -continue with current abx as per ID Tachycardia, persistent, hx into 110s-130s - possible etiologies include pain, infection, anxiety Today HR - 74, continue to monitor and trend Ativan prn, Dilaudid prn C/w metoprolol tartrate 12.5 mg bid via PEG tube Diarrhea- suspect 2/2 PO intake by patient C. 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 Reyez) - managing Ativan, c/w prn Lexapro 10 mg GT daily (started 05/31) Insomnia - Benadryl d/c'd, clinically not indicated Anemia, acute, stable, pt denies blood in stool Total 2 PRBC (on 05/16) and 4 FFP (on 05/15 and 05/16) H/H is stable Iron 16, TIBC 205, % sat 4.7, repeat ferritin 185 after Ferrlecit Monitor CBC q2d Per Dr. Cash, consider Procrit supplementation in attempt to avoid further transfusions if Hgb < 9; transfuse prn Thrombocytosis - suspect reactive to pain, surgery; resolved 07/19 platelets: 403 DM2, controlled From prior note: admittedly non-compliant, has not taken Januvia for 1 y Accuchecks q6h Hypoglycemic protocol ISS regular HgbA1c 5.8 Hx gastric bypass surgery Hypercholesterolemia, untx LDL < 30, HDL < 23, Chol 59, TG 195 (06/03/18) Hx gastric bypass surgery Questran 4 g PO bid via PEG tube Hx HTN, controlled Metoprolol 12.5 mg bid via PEG tube Hx Asthma - Chronic Continue to monitor Atrovent prn Continue Robitussin prn Continue Claritin 10 daily for allergy sxs Nicotine use disorder - Chronic From prior note: 1 ppd x 20 y, 1/2 ppd x 3 y C/w Nicoderm patch Electrolyte imbalance - Hypokalemia, Hypomagnesemia, resolving F/u am labs, replete as needed Mg 1.6, K 3.5 - monitor and follow am labs tomorrow PPX, Diet, Dispo Hydrocortisone 1% cream top tid for R upper inner arm macular rash - improved Vitamin A+D top q 8h prn for dry lips Saliva substitute q 6 h prn for dry mouth IVF not indicated at this time VTE ppx: Lovenox 40 subQ d, SCDs, encourage ambulation GI ppx: Protonix 40 mg IV bid, Florastor bid Code status: Full code Continue PT services, follow up recs Dispo: Continue to optimize patient for reversal surgery. Dr. Harley to coordinate with Dr. Mccray plan for intervention. Pt to remain inpatient until reversal procedure performed by surgical team. Case was reviewed and discussed with attending physician, Dr. Turk. Jose Angel Cornelius PGY-1
[2018-07-19] MEDS: Ipratropium 0.02% Inhal Soln (0.5 mg/2.5 ml) UD IH SCH ×3 (09:18→20:23)
[2018-07-19] MEDS: Cholestyramine 4 gm/Pkt UD PO SCH ×2 (09:28→18:25)
[2018-07-19] MEDS: Enoxaparin 40 mg Syringe SC SCH (09:28)
[2018-07-19] MEDS: Pantoprazole 40 mg Susp UD PO SCH (09:28)
[2018-07-19] MEDS: GENTAMICIN 0.1% TOP SCH ×3 (09:29→18:27)
[2018-07-19] MEDS: guaiFENesin 100 mg/5 ml Syrup UD PO PRN ×2 (09:31→18:25)
[2018-07-19] MEDS: Benzocaine/Menthol (Cepacol) Lozenge MT PRN ×2 (09:31→18:25)
[2018-07-19] MEDS: Loperamide Hydrochloride 1 mg/5 ml Cup PO PRN ×2 (09:31→18:25)
[2018-07-19 14:22] LABS: BASO # 0.1 K/uL (0.0-0.2); BASO % 1.1 % (0.0-2.0); EOS # 0.7 K/uL (0.0-0.7); EOS % 9.9 % (0.0-4.0); HEMOGLOBIN 11.4 g/dL (11.0-16.0); LYMPH # 3.1 K/uL (1.0-4.3); LYMPH % 44.8 % (20.0-40.0); MEAN CORPUSCULAR HEMOGLOBIN 28.5 pg (27.0-31.0); MEAN CORPUSCULAR HGB CONC 32.7 g/dL (33.0-37.0); MEAN PLATELET VOLUME 7.8 fL (7.2-11.7); MONO # 0.5 K/uL (0.0-0.8); MONO % 6.6 % (0.0-10.0); NEUT # 2.6 K/uL (1.8-7.0); NEUT % 37.6 % (50.0-75.0); NRBC % 0.1 % (0.0-2.0); RBC 4.01 Mil/uL (3.80-5.20); RED CELL DISTRIBUTION WIDTH 17.6 % (11.5-14.5)
[2018-07-19] MEDS: Sodium Chloride 0.9% 1,000 ML IV SCH (14:44)
[2018-07-19 15:13] LABS: ALB/GLOB RATIO 0.9 (1.0-2.1); ALBUMIN 3.3 g/dL (3.5-5.0); ALT/SGPT 17 U/L (9-52); AST/SGOT 15 U/L (14-36); BLOOD UREA NITROGEN 2 mg/dL (7-17); CALCIUM 8.8 mg/dl (8.6-10.4); GFR NON-AFRICAN AMERICAN > 60
[2018-07-19] MEDS ORDERED: Dextrose 50% SYRINGE Inj (50 ml) ONE (16:49)
[2018-07-19] MEDS: Dextrose 50% SYRINGE Inj (50 ml) IV PRN (16:49)
--- NOTE | 2018-07-19 19:45 | CP.PCM.PN ---
Subjective - Date & Time of Evaluation Date of Evaluation: 07/18/18 Time of Evaluation: 19:00 - Subjective Subjective: Feeling better Objective - Vital Signs/Intake and Output Vital Signs (last 24 hours): Temp Pulse Resp BP Pulse Ox 98.5 F 74 20 145/95 H 99 07/19/18 15:59 07/19/18 15:59 07/19/18 15:59 07/19/18 15:59 07/19/18 15:59 Intake and Output: 07/19/18 07/20/18 18:59 06:59 Intake Total 1200 Output Total 150 Balance 1050 - Medications Medications: Current Medications Acetaminophen (Tylenol 650mg/20.3ml Solution Ud) 975 mg GT Q8H PRN PRN Reason: Pain, Mild (1-3) Last Admin: 07/17/18 23:47 Dose: 975 mg Benzocaine/Menthol (Cepacol Sore Throat) 1 sravan MT Q2H PRN PRN Reason: Sore Throat Last Admin: 07/19/18 18:25 Dose: 1 sravan Calcium Acetate (Phoslo) 667 mg GT TIDCC [facility] Last Admin: 07/19/18 18:25 Dose: 667 mg Cholestyramine Resin (Questran) 4 gm PO BID [facility] Last Admin: 07/19/18 18:25 Dose: 4 gm Dextrose (Dextrose 50% Inj) 0 ml IV STAT PRN; Protocol PRN Reason: Hypoglycemia Protocol Last Admin: 07/19/18 16:49 Dose: 50 ml Dextrose (Glutose 15) 0 gm PO ONCE PRN; Protocol PRN Reason: Hypoglycemia Protocol Enoxaparin Sodium (Lovenox) 40 mg SC DAILY [facility] Last Admin: 07/19/18 09:28 Dose: 40 mg Ergocalciferol (Drisdol 50,000 Intl Units Cap) 1 cap PO Q7D [facility] Stop: 09/14/18 10:01 Last Admin: 07/13/18 10:57 Dose: 1 cap Escitalopram Oxalate (Lexapro) 10 mg GT DAILY [facility] Last Admin: 07/19/18 09:27 Dose: 10 mg Gentamicin Sulfate (Gentamicin 0.1%) 0 gm TOP TID [facility] Last Admin: 07/19/18 18:27 Dose: 1 applic Glucagon (Glucagen Diagnostic Kit) 0 mg IM STAT PRN; Protocol PRN Reason: Hypoglycemia Protocol Guaifenesin (Robitussin) 100 mg PO Q4H PRN PRN Reason: Cough Last Admin: 07/19/18 18:25 Dose: 100 mg Hydromorphone HCl (Dilaudid) 1 mg IVP Q3H PRN PRN Reason: Pain, Mild (1-3) Last Admin: 07/19/18 18:59 Dose: 1 mg Meropenem 1 gm/ Sodium (Chloride) 100 mls @ 100 mls/hr IVPB Q8H [facility]; Protocol Last Admin: 07/19/18 14:45 Dose: 100 mls/hr Micafungin Sodium 100 mg/ (Sodium Chloride) 100 mls @ 100 mls/hr IV Q24H [facility]; Protocol Last Admin: 07/18/18 22:00 Dose: 100 mls/hr Vancomycin HCl 1,000 mg/ (Sodium Chloride) 200 mls @ 133.333 mls/hr IVPB Q12H [facility]; Protocol Last Admin: 07/19/18 18:25 Dose: 133.333 mls/hr Insulin Human Regular (Novolin R) 0 unit SC ACHS [facility]; Protocol Last Admin: 07/19/18 18:26 Dose: Not Given Ipratropium [place] (Atrovent) 0.5 mg IH RQ6 [facility] Last Admin: 07/19/18 13:02 Dose: 0.5 mg Loperamide HCl (Imodium) 1 mg PO Q2H PRN PRN Reason: Diarrhea Last Admin: 07/19/18 18:25 Dose: 1 mg Loratadine (Claritin) 10 mg PO DAILY [facility] Last Admin: 07/19/18 09:27 Dose: 10 mg Lorazepam (Ativan) 1 mg IVP BID [facility] Last Admin: 07/19/18 18:24 Dose: 1 mg Metoprolol Tartrate (Lopressor) 12.5 mg PEG BID [facility] Last Admin: 07/19/18 18:25 Dose: 12.5 mg Nicotine (Nicoderm Cq) 1 patch TD DAILY [facility] Last Admin: 07/19/18 09:27 Dose: 1 patch Ondansetron HCl (Zofran Inj) 4 mg IVP Q6H PRN PRN Reason: Nausea/Vomiting Last Admin: 07/19/18 09:31 Dose: 4 mg Pantoprazole Sodium (Protonix Susp) 40 mg PO DAILY [facility] Last Admin: 07/19/18 09:28 Dose: 40 mg Saliva Substitute (Mouth Kote 236 Ml) 0 ml MM Q6 PRN PRN Reason: Dry mouth Vitamin A (Vitamin A & D Oint Ud Foilpak) 1 ea TOP Q8 PRN PRN Reason: dry lips Vitamin E (Vitamin E 400 Units Cap) 400 intlu GT DAILY [facility] Last Admin: 07/19/18 09:28 Dose: 400 intlu - Labs Labs: 07/19/18 14:14 07/19/18 14:14 PT 14.3 SECONDS (9.7-12.2) H 06/10/18 07:05 INR 1.3 06/10/18 07:05 APTT 33 SECONDS (21-34) 05/25/18 06:16 - Head Exam Head Exam: ATRAUMATIC - Eye Exam Eye Exam: Normal appearance - ENT Exam ENT Exam: Mucous Membranes Dry - Respiratory Exam Respiratory Exam: NORMAL BREATHING PATTERN - Cardiovascular Exam Cardiovascular Exam: +S1, +S2 - GI/Abdominal Exam GI & Abdominal Exam: Normal Bowel Sounds Assessment and Plan (1) Anemia Assessment & Plan: iron deficiency anemia resolved s/p IV iron anemia of chronic disease; will consider Procrit supplementation in an attempt to avoid further transfusions if hgb < 9 FOBT positive transfuse PRN Status: Acute
--- NOTE | 2018-07-19 19:46 | CP.PCM.PN ---
Subjective - Date & Time of Evaluation Date of Evaluation: 07/19/18 Time of Evaluation: 19:00 - Subjective Subjective: Feeling better Objective - Vital Signs/Intake and Output Vital Signs (last 24 hours): Temp Pulse Resp BP Pulse Ox 98.5 F 74 20 145/95 H 99 07/19/18 15:59 07/19/18 15:59 07/19/18 15:59 07/19/18 15:59 07/19/18 15:59 Intake and Output: 07/19/18 07/20/18 18:59 06:59 Intake Total 1200 Output Total 150 Balance 1050 - Medications Medications: Current Medications Acetaminophen (Tylenol 650mg/20.3ml Solution Ud) 975 mg GT Q8H PRN PRN Reason: Pain, Mild (1-3) Last Admin: 07/17/18 23:47 Dose: 975 mg Benzocaine/Menthol (Cepacol Sore Throat) 1 sravan MT Q2H PRN PRN Reason: Sore Throat Last Admin: 07/19/18 18:25 Dose: 1 sravan Calcium Acetate (Phoslo) 667 mg GT TIDCC [facility] Last Admin: 07/19/18 18:25 Dose: 667 mg Cholestyramine Resin (Questran) 4 gm PO BID [facility] Last Admin: 07/19/18 18:25 Dose: 4 gm Dextrose (Dextrose 50% Inj) 0 ml IV STAT PRN; Protocol PRN Reason: Hypoglycemia Protocol Last Admin: 07/19/18 16:49 Dose: 50 ml Dextrose (Glutose 15) 0 gm PO ONCE PRN; Protocol PRN Reason: Hypoglycemia Protocol Enoxaparin Sodium (Lovenox) 40 mg SC DAILY [facility] Last Admin: 07/19/18 09:28 Dose: 40 mg Ergocalciferol (Drisdol 50,000 Intl Units Cap) 1 cap PO Q7D [facility] Stop: 09/14/18 10:01 Last Admin: 07/13/18 10:57 Dose: 1 cap Escitalopram Oxalate (Lexapro) 10 mg GT DAILY [facility] Last Admin: 07/19/18 09:27 Dose: 10 mg Gentamicin Sulfate (Gentamicin 0.1%) 0 gm TOP TID [facility] Last Admin: 07/19/18 18:27 Dose: 1 applic Glucagon (Glucagen Diagnostic Kit) 0 mg IM STAT PRN; Protocol PRN Reason: Hypoglycemia Protocol Guaifenesin (Robitussin) 100 mg PO Q4H PRN PRN Reason: Cough Last Admin: 07/19/18 18:25 Dose: 100 mg Hydromorphone HCl (Dilaudid) 1 mg IVP Q3H PRN PRN Reason: Pain, Mild (1-3) Last Admin: 07/19/18 18:59 Dose: 1 mg Meropenem 1 gm/ Sodium (Chloride) 100 mls @ 100 mls/hr IVPB Q8H [facility]; Protocol Last Admin: 07/19/18 14:45 Dose: 100 mls/hr Micafungin Sodium 100 mg/ (Sodium Chloride) 100 mls @ 100 mls/hr IV Q24H [facility]; Protocol Last Admin: 07/18/18 22:00 Dose: 100 mls/hr Vancomycin HCl 1,000 mg/ (Sodium Chloride) 200 mls @ 133.333 mls/hr IVPB Q12H [facility]; Protocol Last Admin: 07/19/18 18:25 Dose: 133.333 mls/hr Insulin Human Regular (Novolin R) 0 unit SC ACHS [facility]; Protocol Last Admin: 07/19/18 18:26 Dose: Not Given Ipratropium [place] (Atrovent) 0.5 mg IH RQ6 [facility] Last Admin: 07/19/18 13:02 Dose: 0.5 mg Loperamide HCl (Imodium) 1 mg PO Q2H PRN PRN Reason: Diarrhea Last Admin: 07/19/18 18:25 Dose: 1 mg Loratadine (Claritin) 10 mg PO DAILY [facility] Last Admin: 07/19/18 09:27 Dose: 10 mg Lorazepam (Ativan) 1 mg IVP BID [facility] Last Admin: 07/19/18 18:24 Dose: 1 mg Metoprolol Tartrate (Lopressor) 12.5 mg PEG BID [facility] Last Admin: 07/19/18 18:25 Dose: 12.5 mg Nicotine (Nicoderm Cq) 1 patch TD DAILY [facility] Last Admin: 07/19/18 09:27 Dose: 1 patch Ondansetron HCl (Zofran Inj) 4 mg IVP Q6H PRN PRN Reason: Nausea/Vomiting Last Admin: 07/19/18 09:31 Dose: 4 mg Pantoprazole Sodium (Protonix Susp) 40 mg PO DAILY [facility] Last Admin: 07/19/18 09:28 Dose: 40 mg Saliva Substitute (Mouth Kote 236 Ml) 0 ml MM Q6 PRN PRN Reason: Dry mouth Vitamin A (Vitamin A & D Oint Ud Foilpak) 1 ea TOP Q8 PRN PRN Reason: dry lips Vitamin E (Vitamin E 400 Units Cap) 400 intlu GT DAILY [facility] Last Admin: 07/19/18 09:28 Dose: 400 intlu - Labs Labs: 07/19/18 14:14 07/19/18 14:14 PT 14.3 SECONDS (9.7-12.2) H 06/10/18 07:05 INR 1.3 06/10/18 07:05 APTT 33 SECONDS (21-34) 05/25/18 06:16 - Head Exam Head Exam: ATRAUMATIC - Eye Exam Eye Exam: Normal appearance - ENT Exam ENT Exam: Mucous Membranes Dry - Respiratory Exam Respiratory Exam: NORMAL BREATHING PATTERN - Cardiovascular Exam Cardiovascular Exam: +S1, +S2 - GI/Abdominal Exam GI & Abdominal Exam: Normal Bowel Sounds Assessment and Plan (1) Anemia Assessment & Plan: iron deficiency anemia resolved s/p IV iron anemia of chronic disease; will consider Procrit supplementation in an attempt to avoid further transfusions if hgb < 9 FOBT positive transfuse PRN Status: Acute
[2018-07-19] MEDS: Micafungin 100 MG in Sodium Chloride 0.9% 100 ML IV SCH (22:03)
[2018-07-19] MEDS: Acetaminophen 650mg/20.3ml solution UD GT PRN (23:04)
[2018-07-20] MEDS: Meropenem 1 GM in Sodium Chloride 0.9% 100 ML IVPB SCH ×4 (00:54→22:58)
[2018-07-20] MEDS: HYDROmorphone 1 mg/ml ISec IVP PRN ×7 (01:00→20:25)
[2018-07-20] MEDS: Ipratropium 0.02% Inhal Soln (0.5 mg/2.5 ml) UD IH SCH ×4 (01:03→19:58)
[2018-07-20 06:58] LABS: ALB/GLOB RATIO 0.9 (1.0-2.1); ALBUMIN 2.7 g/dL (3.5-5.0); ALT/SGPT 16 U/L (9-52); AST/SGOT 12 U/L (14-36); BLOOD UREA NITROGEN 3 mg/dL (7-17); GFR NON-AFRICAN AMERICAN > 60
[2018-07-20 07:19] LABS: BASO % 0.9 % (0.0-2.0); EOS # 0.8 K/uL (0.0-0.7); EOS % 13.3 % (0.0-4.0); HEMOGLOBIN 9.8 g/dL (11.0-16.0); LYMPH # 2.5 K/uL (1.0-4.3); LYMPH % 43.9 % (20.0-40.0); MEAN CELL VOLUME 85.9 fL (81.0-99.0); MEAN CORPUSCULAR HEMOGLOBIN 28.7 pg (27.0-31.0); MEAN CORPUSCULAR HGB CONC 33.4 g/dL (33.0-37.0); MEAN PLATELET VOLUME 7.5 fL (7.2-11.7); MONO # 0.4 K/uL (0.0-0.8); MONO % 6.8 % (0.0-10.0); NEUT % 35.1 % (50.0-75.0); NRBC % 0.1 % (0.0-2.0); RBC 3.42 Mil/uL (3.80-5.20); RED CELL DISTRIBUTION WIDTH 17.5 % (11.5-14.5); WHITE BLOOD COUNT 5.8 K/uL (4.8-10.8)
[2018-07-20] MEDS: (Novolin R) Insulin Human Regular 100 units/ml vial SC SCH ×4 (09:12→22:51)
[2018-07-20] MEDS: Cholestyramine 4 gm/Pkt UD PO SCH ×2 (10:27→17:47)
[2018-07-20] MEDS: Pantoprazole 40 mg Susp UD PO SCH (10:27)
[2018-07-20] MEDS: Enoxaparin 40 mg Syringe SC SCH (10:28)
[2018-07-20] MEDS: GENTAMICIN 0.1% TOP SCH ×2 (10:29→17:49)
[2018-07-20] MEDS: guaiFENesin 100 mg/5 ml Syrup UD PO PRN ×2 (10:30→17:50)
[2018-07-20] MEDS: Loperamide Hydrochloride 1 mg/5 ml Cup PO PRN ×2 (10:31→17:47)
[2018-07-20] MEDS: Benzocaine/Menthol (Cepacol) Lozenge MT PRN ×2 (10:31→17:49)
[2018-07-20] MEDS: Ergocalciferol 50,000 Intl Units Cap PO SCH (10:33)
--- NOTE | 2018-07-20 10:34 | VASCLAB ---
Date of service: 07/15/2018 PROCEDURE: Lower Extremity Venous Duplex Exam. HISTORY: rule out dvt PRIORS: None. TECHNIQUE: Bilateral common femoral, femoral, popliteal and posterior tibial, peroneal and great saphenous veins were evaluated. Flow was assessed with color Doppler, compressibility, assessment of phasic flow and augmentation response. Report prepared by Ren Flores, BS, RVT FINDINGS: RIGHT: 1. Common Femoral Vein: 1.1. Compressibility - Fully compressible: Thrombus - None : Flow - Phasic: Augmentation -Normal: Reflux - None. 2. Femoral Vein: 2.1. Compressibility - Fully compressible: Thrombus - None : Flow - Phasic: Augmentation -Normal: Reflux - None. 3. Popliteal Vein: 3.1. Compressibility - Fully compressible: Thrombus - None : Flow - Phasic: Augmentation -Normal: Reflux - None. 4. Posterior Tibial Vein: 4.1. Compressibility - Fully compressible: Thrombus - None: Flow - Phasic: Augmentation -Normal: Reflux - None. 5. Peroneal Vein: 5.1. Compressibility - Fully compressible: Thrombus - None: Flow - Phasic: Augmentation -Normal: Reflux - None. 6. Great Saphenous Vein: 6.1. Compressibility - Fully compressible: Thrombus - None: Flow - Phasic: Augmentation - Normal: Reflux - None. LEFT: 1. Common Femoral Vein: 1.1. Compressibility - Fully compressible: Thrombus - None: Flow - Phasic: Augmentation -Normal: Reflux - None. 2. Femoral Vein: 2.1. Compressibility - Fully compressible: Thrombus - None: Flow - Phasic: Augmentation -Normal: Reflux - None. 3. Popliteal Vein: 3.1. Compressibility - Fully compressible: Thrombus - None : Flow - Phasic: Augmentation -Normal: Reflux - None. 4. Posterior Tibial Vein: 4.1. Compressibility - Fully compressible: Thrombus - None: Flow - Phasic: Augmentation -Normal: Reflux - None. 5. Peroneal Vein: 5.1. Compressibility - Fully compressible: Thrombus - None: Flow - Phasic: Augmentation -Normal: Reflux - None. 6. Great Saphenous Vein: 6.1. Compressibility - Fully compressible: Thrombus - None: Flow - Phasic: Augmentation - Normal: Reflux - None. OTHER FINDINGS: Right: None significant. Left: None significant. IMPRESSION: Right: No evidence of deep or superficial vein thrombosis of the right lower extremity. Normal valve function noted of the right side. Left: No evidence of deep or superficial vein thrombosis of the left lower extremity. Normal valve function noted of the left side.
--- NOTE | 2018-07-20 14:32 | CP.PCM.PN ---
Subjective - Date & Time of Evaluation Date of Evaluation: 07/20/18 Time of Evaluation: 14:20 - Subjective Subjective: dictated Objective - Vital Signs/Intake and Output Vital Signs (last 24 hours): Temp Pulse Resp BP Pulse Ox 97.7 F 77 20 134/89 99 07/20/18 07:00 07/20/18 07:00 07/20/18 07:00 07/20/18 07:00 07/20/18 07:00 Intake and Output: 07/20/18 07/20/18 06:59 18:59 Intake Total 1300 Output Total 710 Balance 590 - Medications Medications: Current Medications Acetaminophen (Tylenol 650mg/20.3ml Solution Ud) 975 mg GT Q8H PRN PRN Reason: Pain, Mild (1-3) Last Admin: 07/19/18 23:04 Dose: 975 mg Benzocaine/Menthol (Cepacol Sore Throat) 1 sravan MT Q2H PRN PRN Reason: Sore Throat Last Admin: 07/20/18 10:31 Dose: 1 sravan Calcium Acetate (Phoslo) 667 mg GT TIDCC [facility] Last Admin: 07/20/18 11:19 Dose: 667 mg Cholestyramine Resin (Questran) 4 gm PO BID [facility] Last Admin: 07/20/18 10:27 Dose: 4 gm Dextrose (Dextrose 50% Inj) 0 ml IV STAT PRN; Protocol PRN Reason: Hypoglycemia Protocol Last Admin: 07/19/18 16:49 Dose: 50 ml Dextrose (Glutose 15) 0 gm PO ONCE PRN; Protocol PRN Reason: Hypoglycemia Protocol Enoxaparin Sodium (Lovenox) 40 mg SC DAILY [facility] Last Admin: 07/20/18 10:28 Dose: 40 mg Ergocalciferol (Drisdol 50,000 Intl Units Cap) 1 cap PO Q7D [facility] Stop: 09/14/18 10:01 Last Admin: 07/20/18 10:33 Dose: 1 cap Escitalopram Oxalate (Lexapro) 10 mg GT DAILY [facility] Last Admin: 07/20/18 10:27 Dose: 10 mg Gentamicin Sulfate (Gentamicin 0.1%) 0 gm TOP TID [facility] Last Admin: 07/20/18 10:29 Dose: 1 applic Glucagon (Glucagen Diagnostic Kit) 0 mg IM STAT PRN; Protocol PRN Reason: Hypoglycemia Protocol Guaifenesin (Robitussin) 100 mg PO Q4H PRN PRN Reason: Cough Last Admin: 07/20/18 10:30 Dose: 100 mg Hydromorphone HCl (Dilaudid) 1 mg IVP Q3H PRN PRN Reason: Pain, Mild (1-3) Last Admin: 07/20/18 14:17 Dose: 1 mg Meropenem 1 gm/ Sodium (Chloride) 100 mls @ 100 mls/hr IVPB Q8H [facility]; Protocol Last Admin: 07/20/18 09:13 Dose: 100 mls/hr Micafungin Sodium 100 mg/ (Sodium Chloride) 100 mls @ 100 mls/hr IV Q24H [facility]; Protocol Last Admin: 07/19/18 22:03 Dose: 100 mls/hr Vancomycin HCl 1,000 mg/ (Sodium Chloride) 200 mls @ 133.333 mls/hr IVPB Q12H [facility]; Protocol Last Admin: 07/20/18 06:31 Dose: 133.333 mls/hr Potassium Chloride (Potassium Chloride 20 Meq/100 Ml) 20 meq in 100 mls @ 50 mls/hr IVPB ONCE ONE Stop: 07/20/18 15:59 Last Admin: 07/20/18 13:53 Dose: 50 mls/hr Insulin Human Regular (Novolin R) 0 unit SC ACHS [facility]; Protocol Last Admin: 07/20/18 13:48 Dose: Not Given Ipratropium [place] (Atrovent) 0.5 mg IH RQ6 [facility] Last Admin: 07/20/18 13:11 Dose: 0.5 mg Loperamide HCl (Imodium) 1 mg PO Q2H PRN PRN Reason: Diarrhea Last Admin: 07/20/18 10:31 Dose: 1 mg Loratadine (Claritin) 10 mg PO DAILY [facility] Last Admin: 07/20/18 10:27 Dose: 10 mg Lorazepam (Ativan) 1 mg IVP BID [facility] Last Admin: 07/20/18 10:29 Dose: 1 mg Metoprolol Tartrate (Lopressor) 12.5 mg PEG BID [facility] Last Admin: 07/20/18 10:27 Dose: 12.5 mg Nicotine (Nicoderm Cq) 1 patch TD DAILY [facility] Last Admin: 07/20/18 10:27 Dose: 1 patch Ondansetron HCl (Zofran Inj) 4 mg IVP Q6H PRN PRN Reason: Nausea/Vomiting Last Admin: 07/19/18 09:31 Dose: 4 mg Pantoprazole Sodium (Protonix Susp) 40 mg PO DAILY [facility] Last Admin: 07/20/18 10:27 Dose: 40 mg Saliva Substitute (Mouth Kote 236 Ml) 0 ml MM Q6 PRN PRN Reason: Dry mouth Vitamin A (Vitamin A & D Oint Ud Foilpak) 1 ea TOP Q8 PRN PRN Reason: dry lips Vitamin E (Vitamin E 400 Units Cap) 400 intlu GT DAILY [facility] Last Admin: 07/20/18 10:27 Dose: 400 intlu - Labs Labs: 07/20/18 06:30 07/20/18 06:30 PT 14.3 SECONDS (9.7-12.2) H 06/10/18 07:05 INR 1.3 06/10/18 07:05 APTT 33 SECONDS (21-34) 05/25/18 06:16
--- NOTE | 2018-07-20 15:54 | CP.PCM.PN ---
Subjective - Date & Time of Evaluation Date of Evaluation: 07/20/18 Time of Evaluation: 07:30 - Subjective Subjective: Medicine Progress Note for Hospitalist Service Pt seen and examined at bedside this am. Denies any acute complaints. Denies fevers overnight. No acute events reported overnight. Pt to go for placement of PICC line today with Dr. Peraza (IR). Reported 2 episodes of watery diarrhea today. Denies headache, dizziness, chest pain, sob, n/v/c, abd pain, urinary complaints or other symptoms. Objective - Vital Signs/Intake and Output Vital Signs (last 24 hours): Temp Pulse Resp BP Pulse Ox 97.7 F 77 20 134/89 99 07/20/18 07:00 07/20/18 07:00 07/20/18 07:00 07/20/18 07:00 07/20/18 07:00 Intake and Output: 07/20/18 07/20/18 06:59 18:59 Intake Total 1300 Output Total 710 190 Balance 590 -190 - Medications Medications: Current Medications Acetaminophen (Tylenol 650mg/20.3ml Solution Ud) 975 mg GT Q8H PRN PRN Reason: Pain, Mild (1-3) Last Admin: 07/19/18 23:04 Dose: 975 mg Benzocaine/Menthol (Cepacol Sore Throat) 1 sravan MT Q2H PRN PRN Reason: Sore Throat Last Admin: 07/20/18 10:31 Dose: 1 sravan Calcium Acetate (Phoslo) 667 mg GT TIDCC [facility] Last Admin: 07/20/18 11:19 Dose: 667 mg Cholestyramine Resin (Questran) 4 gm PO BID [facility] Last Admin: 07/20/18 10:27 Dose: 4 gm Dextrose (Dextrose 50% Inj) 0 ml IV STAT PRN; Protocol PRN Reason: Hypoglycemia Protocol Last Admin: 07/19/18 16:49 Dose: 50 ml Dextrose (Glutose 15) 0 gm PO ONCE PRN; Protocol PRN Reason: Hypoglycemia Protocol Enoxaparin Sodium (Lovenox) 40 mg SC DAILY [facility] Last Admin: 07/20/18 10:28 Dose: 40 mg Ergocalciferol (Drisdol 50,000 Intl Units Cap) 1 cap PO Q7D [facility] Stop: 09/14/18 10:01 Last Admin: 07/20/18 10:33 Dose: 1 cap Escitalopram Oxalate (Lexapro) 10 mg GT DAILY [facility] Last Admin: 07/20/18 10:27 Dose: 10 mg Gentamicin Sulfate (Gentamicin 0.1%) 0 gm TOP TID [facility] Last Admin: 07/20/18 10:29 Dose: 1 applic Glucagon (Glucagen Diagnostic Kit) 0 mg IM STAT PRN; Protocol PRN Reason: Hypoglycemia Protocol Guaifenesin (Robitussin) 100 mg PO Q4H PRN PRN Reason: Cough Last Admin: 07/20/18 10:30 Dose: 100 mg Hydromorphone HCl (Dilaudid) 1 mg IVP Q3H PRN PRN Reason: Pain, Mild (1-3) Last Admin: 07/20/18 14:17 Dose: 1 mg Meropenem 1 gm/ Sodium (Chloride) 100 mls @ 100 mls/hr IVPB Q8H [facility]; Protocol Last Admin: 07/20/18 09:13 Dose: 100 mls/hr Micafungin Sodium 100 mg/ (Sodium Chloride) 100 mls @ 100 mls/hr IV Q24H [facility]; Protocol Last Admin: 07/19/18 22:03 Dose: 100 mls/hr Vancomycin HCl 1,000 mg/ (Sodium Chloride) 200 mls @ 133.333 mls/hr IVPB Q12H [facility]; Protocol Last Admin: 07/20/18 06:31 Dose: 133.333 mls/hr Potassium Chloride (Potassium Chloride 20 Meq/100 Ml) 20 meq in 100 mls @ 50 mls/hr IVPB ONCE ONE Stop: 07/20/18 15:59 Last Admin: 07/20/18 13:53 Dose: 50 mls/hr Insulin Human Regular (Novolin R) 0 unit SC ACHS [facility]; Protocol Last Admin: 07/20/18 13:48 Dose: Not Given Ipratropium [place] (Atrovent) 0.5 mg IH RQ6 [facility] Last Admin: 07/20/18 13:11 Dose: 0.5 mg Loperamide HCl (Imodium) 1 mg PO Q2H PRN PRN Reason: Diarrhea Last Admin: 07/20/18 10:31 Dose: 1 mg Loratadine (Claritin) 10 mg PO DAILY [facility] Last Admin: 07/20/18 10:27 Dose: 10 mg Lorazepam (Ativan) 1 mg IVP BID [facility] Last Admin: 07/20/18 10:29 Dose: 1 mg Metoprolol Tartrate (Lopressor) 12.5 mg PEG BID [facility] Last Admin: 07/20/18 10:27 Dose: 12.5 mg Nicotine (Nicoderm Cq) 1 patch TD DAILY [facility] Last Admin: 07/20/18 10:27 Dose: 1 patch Ondansetron HCl (Zofran Inj) 4 mg IVP Q6H PRN PRN Reason: Nausea/Vomiting Last Admin: 07/19/18 09:31 Dose: 4 mg Pantoprazole Sodium (Protonix Susp) 40 mg PO DAILY [facility] Last Admin: 07/20/18 10:27 Dose: 40 mg Saliva Substitute (Mouth Kote 236 Ml) 0 ml MM Q6 PRN PRN Reason: Dry mouth Vitamin A (Vitamin A & D Oint Ud Foilpak) 1 ea TOP Q8 PRN PRN Reason: dry lips Vitamin E (Vitamin E 400 Units Cap) 400 intlu GT DAILY [facility] Last Admin: 07/20/18 10:27 Dose: 400 intlu - Labs Labs: 07/20/18 06:30 07/20/18 06:30 PT 14.3 SECONDS (9.7-12.2) H 06/10/18 07:05 INR 1.3 06/10/18 07:05 APTT 33 SECONDS (21-34) 05/25/18 06:16 - Constitutional Appears: Non-toxic, No Acute Distress, Chronically Ill - Head Exam Head Exam: ATRAUMATIC, NORMOCEPHALIC - Eye Exam Eye Exam: EOMI, Normal appearance, PERRL - ENT Exam ENT Exam: Mucous Membranes Moist - Respiratory Exam Respiratory Exam: Clear to Ausculation Bilateral, NORMAL BREATHING PATTERN. absent: Rales, Rhonchi, Wheezes - Cardiovascular Exam Cardiovascular Exam: REGULAR RHYTHM, +S1, +S2. absent: Gallop, Rubs, Murmur - GI/Abdominal Exam GI & Abdominal Exam: Soft, Normal Bowel Sounds. absent: Distended, Firm, Guarding, Tenderness, Organomegaly, Rebound Additional comments: Abd wound vac and gastrostomy tube in place, c/d/i - Extremities Exam Extremities Exam: Full ROM, Normal Capillary Refill, Normal Inspection. absent: Calf Tenderness, Pedal Edema - Neurological Exam Neurological Exam: Alert, Awake, CN II-XII Intact, Normal Gait, Oriented x3 - Psychiatric Exam Psychiatric exam: Normal Affect, Normal Mood - Skin Skin Exam: Dry, Intact, Normal Color, Warm Assessment and Plan - Assessment and Plan (Free Text) Plan: Ischemic bowel disease 2/2 internal hernia producing bowel obstruction Current drains include: NGT (intermittent suction per surgery recs) replaced on 07/09/18 by surgery team, gastrostomy tube (replaced 06/10/18) Latest wound cultures: -Abd incision, Peg incision site => Pseudomonas aeruginosa, sensitive to Meropenem -Per ID: Meropenem 1 g q 8 h (d/c 07/11; restarted 07/12), Vancomycin 1.5 g IVPB q 12 h (d/c on 07/05/18; restarted Vanco 1 g q 12h on 07/16) -vanco trough 07/05 -- 15.1 -Repeat abd wound cx 07/12 growing Pseudomonas and Chula Lusitaniae Surgery (Dr. Harley) consulted - awaiting Dr Mccray's response on surgical intervention; f/u with surgical team regarding dispo Wound vac to continuous suction, to be replaced Q72hrs Heme/onc (Dr. Cash) consulted for Fe status - repeat ferritin 185, no need for iron infusion at this time, continue to monitor Other cultures: 06/22/18: abd incision => Pseudomonas aeruginosa sensitive to Meropenem 06/22/18: Peg site => Pseudomonas aeruginosa sensitive to Meropenem 05/14/18: Peritoneal fluid => Pseudomonas aeruginosa sensitive to Meropenem 05/23/18: Wound cx => Chula albicans 05/15/18, 05/22/18: Blood cx => no growth 05/22/18: Urine cx => no growth 05/31/18: Incision site => Enterococcus faecalis, Acinetobacter baumannii 06/03/18: Stool cxs => No Salmonella, Shigella, or Campylobacter isolates 06/13/18: Repeat wound cx => Coag-neg Staph, Enterococcus raffinosus 07/12/18 Repeat wound cx growing Pseudomonas and Chula Lusitaniae 07/14/18 repeat blood cxs NG 07/15/18 repeat blood cxs through central line NG 07/15/18 Sputum cx no growth 07/15/18 Urine cx no growth 07/16/18 blood culture x2 via PICC line grew E. faecalis sensitive to vancomycin -Echocardiogram (07/18) shows EF approximately 56%, AV mildly thickened, MV moderately thickened. No vegetation. 07/18/18: NG for 48 hrs Antibiotics: Continue Meropenem 1 g q 8 h IVPB ; restarted as per ID due to pos abd wound cx (07/12) Vancomycin 1 g IV q 12 h started 07/16 Cipro 400 mg IV q 12h d/c'd (started 06/02/18, last day 06/16/18) Flagyl 500 mg IVPB q 8 h completed (active from 05/15/18-06/19/18) Micafungin 100mg IV Q24hrs Continue Gentamicin 0.1% TOP TID apply cream to peg tube site F/u vitamin levels and replace as needed: Vit D < 12.8, 78768 U q1 wk x 8 wks B12 707, wnl; repeat B12 508 Folate 12.6, wnl Vit A 42, wnl Alpha vit E 5.6, wnl Zinc level wnl Vit A, B1, B6, E levels reordered on 06/15 Vit B1: inappropriately submitted, 06/01/18 valve acceptable Vit B6: 5.9, wnl Vit A, E collected Repeat Vitamin levels ordered on 07/08, f/u results 07/08: Pre-albumin 11.6, B12 508, 25-OH vit D < 12.8, vit A 33, vit E wnl As per casing in line feeder recs on 07/15, feeds changed to Jevity 1.5 with goal rate 50 mL C/w Tylenol 975 mg liquid q 8h, Dilaudid 1 mg q 3 h prn, Zofran 4 mg IV q 6 h prn Fever, possible sepsis - Afebrile - abdominal wound culture shows chula and pseudomonas - chest x ray - lungs clear to auscultation b/l, no acute findings - Repeat portable chest x ray 07/18 - in situ NGT, the tip of which overlies the lower mediastinum and must be advanced. no acute infiltrates. - PICC Line removed(07/17) - catheter tip culture is negative for growth - New PICC line to be placed today by IR (Dr. Peraza) - f/u sputum cultures - normal renetta - Urine culture - no growth, final - WBC 10/10 - 5.8 -f/u Bl Doppler to rule out DVT - no DVT bilaterally -VBG/lactate level - ph: 7.45, pCO2: 39, lactate 0.9 - Normal saline @ 100mls/hr - continue tylenol for fevers -abx: Meropenem 1 g q 8 h IVPB Vancomycin 1 g IV q 12 h - random vanc is 11.2 - blood culture through picc line grew E. faecalis sensitive to vancomycin -continue with current abx as per ID Tachycardia, persistent, hx into 110s-130s - possible etiologies include pain, infection, anxiety Today HR - 77, continue to monitor and trend Ativan prn, Dilaudid prn C/w metoprolol tartrate 12.5 mg bid via PEG tube Diarrhea- suspect 2/2 PO intake by patient C. Diff (05/22, 05/24, 05/28, 07/17) neg Stool ova and parasites (05/25/18) neg Stool leukocytes (05/25/18) neg Imodium 1 mg PO q 2h prn Anxiety [employer] consulted - pt refusing at this time Psych consulted (Dr. Reyez) - managing Ativan, c/w prn Lexapro 10 mg GT daily (started 05/31) Insomnia - Benadryl d/c'd, clinically not indicated Anemia, acute, stable, pt denies blood in stool Total 2 PRBC (on 05/16) and 4 FFP (on 05/15 and 05/16) H/H is stable Iron 16, TIBC 205, % sat 4.7, repeat ferritin 185 after Ferrlecit Monitor CBC q2d Per Dr. Cash, consider Procrit supplementation in attempt to avoid further transfusions if Hgb < 9; transfuse prn Thrombocytosis - suspect reactive to pain, surgery; resolved 07/20 platelets: 361 DM2, controlled From prior note: admittedly non-compliant, has not taken Januvia for 1 y Accuchecks q6h Hypoglycemic protocol ISS regular HgbA1c 5.8 Hx gastric bypass surgery Hypercholesterolemia, untx LDL < 30, HDL < 23, Chol 59, TG 195 (06/03/18) Hx gastric bypass surgery Questran 4 g PO bid via PEG tube Hx HTN, controlled Metoprolol 12.5 mg bid via PEG tube Hx Asthma - Chronic Continue to monitor Atrovent prn Continue Robitussin prn Continue Claritin 10 daily for allergy sxs Nicotine use disorder - Chronic From prior note: 1 ppd x 20 y, 1/2 ppd x 3 y C/w Nicoderm patch Electrolyte imbalance - Hypokalemia, Hypomagnesemia, resolving F/u am labs, replete as needed Mg 1.4, K 3.2 - repleted, continue to monitor PPX, Diet, Dispo Hydrocortisone 1% cream top tid for R upper inner arm macular rash - improved Vitamin A+D top q 8h prn for dry lips Saliva substitute q 6 h prn for dry mouth IVF not indicated at this time VTE ppx: Lovenox 40 subQ d, SCDs, encourage ambulation GI ppx: Protonix 40 mg IV bid, Florastor bid Code status: Full code Continue PT services, follow up recs Dispo: Continue to optimize patient for reversal surgery. Dr. Harley to coordinate with Dr. Mccray plan for intervention. Pt to remain inpatient until reversal procedure performed by surgical team. Per discussion with Bunker Worker today, pt acquired insurance today. Bunker Worker to discuss with surgical team whether pt can go to LTAC facility prior to reversal procedure. Pt seen, examined with, and plan discussed with Dr. Turk, attending physician. Morris Connolly DO PGY-1, Director And Professor Pager #[phone]
[2018-07-20] MEDS: Magnesium Sulfate 1 gm in D5W 1 GM/100 ML BAG IVPB SCH ×3 (17:29→17:38)
[2018-07-20] MEDS ORDERED: HYDROmorphone 1 mg/ml ISec IVP PRN (20:40)
[2018-07-20] MEDS: Micafungin 100 MG in Sodium Chloride 0.9% 100 ML IV SCH (22:55)
[2018-07-21] MEDS: HYDROmorphone 1 mg/ml ISec IVP PRN ×7 (00:40→22:33)
[2018-07-21] MEDS ORDERED: HYDROmorphone 0.5 mg/0.5 ml ISec IVP PRN (01:00)
[2018-07-21] MEDS: Ipratropium 0.02% Inhal Soln (0.5 mg/2.5 ml) UD IH SCH ×5 (02:05→19:53)
[2018-07-21 07:29] LABS: BASO # 0.1 K/uL (0.0-0.2); BASO % 0.9 % (0.0-2.0); EOS # 0.6 K/uL (0.0-0.7); EOS % 9.4 % (0.0-4.0); HEMOGLOBIN 10.2 g/dL (11.0-16.0); LYMPH # 2.2 K/uL (1.0-4.3); LYMPH % 33.4 % (20.0-40.0); MEAN CORPUSCULAR HEMOGLOBIN 28.9 pg (27.0-31.0); MEAN CORPUSCULAR HGB CONC 33.6 g/dL (33.0-37.0); MEAN PLATELET VOLUME 7.1 fL (7.2-11.7); MONO # 0.4 K/uL (0.0-0.8); NEUT # 3.3 K/uL (1.8-7.0); NEUT % 50.3 % (50.0-75.0); RBC 3.53 Mil/uL (3.80-5.20); RED CELL DISTRIBUTION WIDTH 17.2 % (11.5-14.5); WHITE BLOOD COUNT 6.6 K/uL (4.8-10.8)
[2018-07-21] MEDS: Meropenem 1 GM in Sodium Chloride 0.9% 100 ML IVPB SCH ×3 (08:11→22:45)
[2018-07-21 08:22] LABS: ALB/GLOB RATIO 0.9 (1.0-2.1); ALBUMIN 2.8 g/dL (3.5-5.0); ALT/SGPT 17 U/L (9-52); AST/SGOT 23 U/L (14-36); BLOOD UREA NITROGEN 4 mg/dL (7-17); CALCIUM 8.4 mg/dl (8.6-10.4); GFR NON-AFRICAN AMERICAN > 60
[2018-07-21] MEDS: (Novolin R) Insulin Human Regular 100 units/ml vial SC SCH ×5 (08:31→22:27)
[2018-07-21] MEDS: Pantoprazole 40 mg Susp UD PO SCH (09:38)
[2018-07-21] MEDS: Benzocaine/Menthol (Cepacol) Lozenge MT PRN (09:38)
[2018-07-21] MEDS: Cholestyramine 4 gm/Pkt UD PO SCH ×2 (09:38→22:20)
[2018-07-21] MEDS: guaiFENesin 100 mg/5 ml Syrup UD PO PRN ×2 (09:39→18:12)
[2018-07-21] MEDS: Loperamide Hydrochloride 1 mg/5 ml Cup PO PRN ×2 (09:39→18:12)
[2018-07-21] MEDS: GENTAMICIN 0.1% TOP SCH ×3 (09:40→18:26)
--- NOTE | 2018-07-21 14:42 | RAD ---
HISTORY: PICC Insertion COMPARISON: Chest x-ray performed 07/18/18 TECHNIQUE: Chest, one view. FINDINGS: Paper clip projects over the left upper lobe, likely external to the patient. Right-sided PICC appears coiled at the level the right subclavian vein. LUNGS: No focal consolidation. Bilateral nodular densities at the lung bases, not previously evident. Please note that chest x-ray has limited sensitivity for the detection of pulmonary masses. PLEURA: 1.6 cm on the left and 1.0 cm on the right. CARDIOVASCULAR: Borderline cardiomegaly. OSSEOUS STRUCTURES: Degenerative changes. VISUALIZED UPPER ABDOMEN: Left upper abdominal surgical clips. OTHER FINDINGS: None. IMPRESSION: Right-sided PICC appears coiled at the level the right subclavian vein. Recommend repositioning to extend to the cavoatrial junction. Bilateral lower lobe nodular densities as above not previously evident. Findings discussed with GET Carroll on 07/21/18 at 2:35 p.m.
--- NOTE | 2018-07-21 17:04 | CP.PCM.PN ---
<Morris Connolly - Last Filed: 07/21/18 17:00> Subjective - Date & Time of Evaluation Date of Evaluation: 07/21/18 Time of Evaluation: 02:15 - Subjective Subjective: Medicine Progress Note for Hospitalist Service Pt seen and examined at bedside this am. Denies any acute complaints. Denies headache, fever, chills, chest pain, sob, n/v/d/c, abd pain, urinary complaints, or other symptoms. Pt to have PICC line placed by IR prior to d/c. Objective - Vital Signs/Intake and Output Vital Signs (last 24 hours): Temp Pulse Resp BP Pulse Ox 98.3 F 87 20 111/76 98 07/21/18 15:04 07/21/18 15:04 07/21/18 15:04 07/21/18 15:04 07/21/18 15:04 Intake and Output: 07/21/18 07/21/18 06:59 18:59 Intake Total 1900 Output Total 354 Balance 1546 - Medications Medications: Current Medications Acetaminophen (Tylenol 650mg/20.3ml Solution Ud) 975 mg GT Q8H PRN PRN Reason: Pain, Mild (1-3) Last Admin: 07/19/18 23:04 Dose: 975 mg Benzocaine/Menthol (Cepacol Sore Throat) 1 sravan MT Q2H PRN PRN Reason: Sore Throat Last Admin: 07/21/18 09:38 Dose: 1 sravan Calcium Acetate (Phoslo) 667 mg GT TIDCC [facility] Last Admin: 07/21/18 13:15 Dose: 667 mg Cholestyramine Resin (Questran) 4 gm PO BID [facility] Last Admin: 07/21/18 09:38 Dose: 4 gm Dextrose (Dextrose 50% Inj) 0 ml IV STAT PRN; Protocol PRN Reason: Hypoglycemia Protocol Last Admin: 07/19/18 16:49 Dose: 50 ml Dextrose (Glutose 15) 0 gm PO ONCE PRN; Protocol PRN Reason: Hypoglycemia Protocol Ergocalciferol (Drisdol 50,000 Intl Units Cap) 1 cap PO Q7D [facility] Stop: 09/14/18 10:01 Last Admin: 07/20/18 10:33 Dose: 1 cap Escitalopram Oxalate (Lexapro) 10 mg GT DAILY [facility] Last Admin: 07/21/18 09:38 Dose: 10 mg Gentamicin Sulfate (Gentamicin 0.1%) 0 gm TOP TID [facility] Last Admin: 07/21/18 13:35 Dose: 1 applic Glucagon (Glucagen Diagnostic Kit) 0 mg IM STAT PRN; Protocol PRN Reason: Hypoglycemia Protocol Guaifenesin (Robitussin) 100 mg PO Q4H PRN PRN Reason: Cough Last Admin: 07/21/18 09:39 Dose: 100 mg Hydromorphone HCl (Dilaudid) 1 mg IVP Q3H PRN PRN Reason: Pain, moderate (4-7) Last Admin: 07/21/18 16:30 Dose: 1 mg Meropenem 1 gm/ Sodium (Chloride) 100 mls @ 100 mls/hr IVPB Q8H [facility]; Protocol Last Admin: 07/21/18 16:00 Dose: 100 mls/hr Micafungin Sodium 100 mg/ (Sodium Chloride) 100 mls @ 100 mls/hr IV Q24H [facility]; Protocol Last Admin: 07/20/18 22:55 Dose: 100 mls/hr Insulin Human Regular (Novolin R) 0 unit SC ACHS [facility]; Protocol Last Admin: 07/21/18 12:05 Dose: Not Given Ipratropium [place] (Atrovent) 0.5 mg IH RQ6 [facility] Last Admin: 07/21/18 13:34 Dose: 0.5 mg Loperamide HCl (Imodium) 1 mg PO Q2H PRN PRN Reason: Diarrhea Last Admin: 07/21/18 09:39 Dose: 1 mg Loratadine (Claritin) 10 mg PO DAILY [facility] Last Admin: 07/21/18 09:25 Dose: 10 mg Lorazepam (Ativan) 1 mg IVP BID [facility] Last Admin: 07/21/18 09:25 Dose: 1 mg Metoprolol Tartrate (Lopressor) 12.5 mg PEG BID [facility] Last Admin: 07/21/18 09:38 Dose: 12.5 mg Nicotine (Nicoderm Cq) 1 patch TD DAILY [facility] Last Admin: 07/21/18 09:38 Dose: 1 patch Ondansetron HCl (Zofran Inj) 4 mg IVP Q6H PRN PRN Reason: Nausea/Vomiting Last Admin: 07/21/18 09:39 Dose: 4 mg Oxycodone HCl (Oxycodone Immediate Release Tab) 10 mg PO Q6 PRN PRN Reason: Pain, severe (8-10) Pantoprazole Sodium (Protonix Susp) 40 mg PO DAILY [facility] Last Admin: 07/21/18 09:38 Dose: 40 mg Saliva Substitute (Mouth Kote 236 Ml) 0 ml MM Q6 PRN PRN Reason: Dry mouth Vitamin A (Vitamin A & D Oint Ud Foilpak) 1 ea TOP Q8 PRN PRN Reason: dry lips Vitamin E (Vitamin E 400 Units Cap) 400 intlu GT DAILY [facility] Last Admin: 07/21/18 09:39 Dose: 400 intlu - Labs Labs: 07/21/18 07:22 07/21/18 07:22 PT 14.3 SECONDS (9.7-12.2) H 06/10/18 07:05 INR 1.3 06/10/18 07:05 APTT 33 SECONDS (21-34) 05/25/18 06:16 - Constitutional Appears: Non-toxic, No Acute Distress, Chronically Ill - Head Exam Head Exam: ATRAUMATIC, NORMOCEPHALIC - Eye Exam Eye Exam: EOMI, Normal appearance, PERRL - ENT Exam ENT Exam: Mucous Membranes Moist - Respiratory Exam Respiratory Exam: Clear to Ausculation Bilateral, NORMAL BREATHING PATTERN - Cardiovascular Exam Cardiovascular Exam: REGULAR RHYTHM, +S1, +S2. absent: Gallop, Rubs, Murmur - GI/Abdominal Exam GI & Abdominal Exam: Soft, Normal Bowel Sounds. absent: Distended, Firm, Guarding, Rigid, Tenderness, Organomegaly, Rebound Additional comments: Abd wound vac and gastrostomy tube in place, c/d/i - Extremities Exam Extremities Exam: Full ROM, Normal Capillary Refill, Normal Inspection. absent: Calf Tenderness, Pedal Edema - Back Exam Back Exam: Full ROM, NORMAL INSPECTION, vertebral tenderness - Neurological Exam Neurological Exam: Alert, Awake, CN II-XII Intact, Normal Gait, Oriented x3 - Psychiatric Exam Psychiatric exam: Normal Affect, Normal Mood - Skin Skin Exam: Dry, Intact, Normal Color, Warm Assessment and Plan - Assessment and Plan (Free Text) Plan: Ischemic bowel disease 2/2 internal hernia producing bowel obstruction Current drains include: NGT (intermittent suction per surgery recs) replaced on 07/09/18 by surgery team, gastrostomy tube (replaced 06/10/18) Latest wound cultures: -Abd incision, Peg incision site => Pseudomonas aeruginosa, sensitive to Meropenem -Per ID: Meropenem 1 g q 8 h (d/c 07/11; restarted 07/12), Vancomycin 1.5 g IVPB q 12 h (d/c on 07/05/18; restarted Vanco 1 g q 12h on 07/16) -vanco trough 07/05 -- 15.1 -Repeat abd wound cx 07/12 growing Pseudomonas and Chula Lusitaniae Surgery (Dr. Harley) consulted - awaiting Dr Mccray's response on surgical intervention; f/u with surgical team regarding dispo => per surgery pt cleared to go to LTACH facility and have reversal procedure done electively Wound vac to continuous suction, to be replaced Q72hrs Heme/onc (Dr. Cash) consulted for Fe status - repeat ferritin 185, no need for iron infusion at this time, continue to monitor Other cultures: 06/22/18: abd incision => Pseudomonas aeruginosa sensitive to Meropenem 06/22/18: Peg site => Pseudomonas aeruginosa sensitive to Meropenem 05/14/18: Peritoneal fluid => Pseudomonas aeruginosa sensitive to Meropenem 05/23/18: Wound cx => Chula albicans 05/15/18, 05/22/18: Blood cx => no growth 05/22/18: Urine cx => no growth 05/31/18: Incision site => Enterococcus faecalis, Acinetobacter baumannii 06/03/18: Stool cxs => No Salmonella, Shigella, or Campylobacter isolates 06/13/18: Repeat wound cx => Coag-neg Staph, Enterococcus raffinosus 07/12/18 Repeat wound cx growing Pseudomonas and Chula Lusitaniae 07/14/18 repeat blood cxs NG 07/15/18 repeat blood cxs through central line NG 07/15/18 Sputum cx no growth 07/15/18 Urine cx no growth 07/16/18 blood culture x2 via PICC line grew E. faecalis sensitive to vancomycin -Echocardiogram (07/18) shows EF approximately 56%, AV mildly thickened, MV moderately thickened. No vegetation. 07/18/18: NG for 3 days Antibiotics: Continue Meropenem 1 g q 8 h IVPB ; restarted as per ID due to pos abd wound cx (07/12) Vancomycin 1 g IV q 12 h started 07/16; will discuss with ID if needs to be continued Cipro 400 mg IV q 12h d/c'd (started 06/02/18, last day 06/16/18) Flagyl 500 mg IVPB q 8 h completed (active from 05/15/18-06/19/18) Micafungin 100mg IV Q24hrs Continue Gentamicin 0.1% TOP TID apply cream to peg tube site F/u vitamin levels and replace as needed: Vit D < 12.8, 11137 U q1 wk x 8 wks B12 707, wnl; repeat B12 508 Folate 12.6, wnl Vit A 42, wnl Alpha vit E 5.6, wnl Zinc level wnl Vit A, B1, B6, E levels reordered on 06/15 Vit B1: inappropriately submitted, 06/01/18 valve acceptable Vit B6: 5.9, wnl Vit A, E collected Repeat Vitamin levels ordered on 07/08, f/u results 07/08: Pre-albumin 11.6, B12 508, 25-OH vit D < 12.8, vit A 33, vit E wnl As per cylindrical mixer recs on 07/15, feeds changed to Jevity 1.5 with goal rate 50 mL C/w Tylenol 975 mg liquid q 8h, Dilaudid 1 mg q 3 h prn, Zofran 4 mg IV q 6 h prn; added Oxycodone IR 10 mg q6h prn Fever, possible sepsis - Afebrile - abdominal wound culture shows chula and pseudomonas - chest x ray - lungs clear to auscultation b/l, no acute findings - Repeat portable chest x ray 07/18 - in situ NGT, the tip of which overlies the lower mediastinum and must be advanced. no acute infiltrates. - PICC Line removed(07/17) - catheter tip culture is negative for growth - New PICC line to be placed by IR (Dr. Peraza) - f/u sputum cultures - normal renetta - Urine culture - no growth, final - WBC 07/20 - 5.8 -f/u Bl Doppler to rule out DVT - no DVT bilaterally -VBG/lactate level - ph: 7.45, pCO2: 39, lactate 0.9 - Normal saline @ 100mls/hr - continue tylenol for fevers -abx: Meropenem 1 g q 8 h IVPB Vancomycin 1 g IV q 12 h - random vanc is 11.2 - blood culture through picc line grew E. faecalis sensitive to vancomycin -continue with current abx as per ID Tachycardia, persistent, hx into 110s-130s - possible etiologies include pain, infection, anxiety Today HR - 87, continue to monitor and trend Ativan prn, Dilaudid prn C/w metoprolol tartrate 12.5 mg bid via PEG tube Diarrhea- suspect 2/2 PO intake by patient C. 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 Reyez) - managing Ativan, c/w prn Lexapro 10 mg GT daily (started 05/31) Insomnia - Benadryl d/c'd, clinically not indicated Anemia, acute, stable, pt denies blood in stool Total 2 PRBC (on 05/16) and 4 FFP (on 05/15 and 05/16) H/H is stable Iron 16, TIBC 205, % sat 4.7, repeat ferritin 185 after Ferrlecit Monitor CBC q2d Per Dr. Cash, consider Procrit supplementation in attempt to avoid further graves sfusions if Hgb < 9; transfuse prn Thrombocytosis - suspect reactive to pain, surgery; resolved 07/20 platelets: 361 DM2, controlled From prior note: admittedly non-compliant, has not taken Januvia for 1 y Accuchecks q6h Hypoglycemic protocol ISS regular HgbA1c 5.8 Hx gastric bypass surgery Hypercholesterolemia, untx LDL < 30, HDL < 23, Chol 59, TG 195 (06/03/18) Hx gastric bypass surgery Questran 4 g PO bid via PEG tube Hx HTN, controlled Metoprolol 12.5 mg bid via PEG tube Hx Asthma - Chronic Continue to monitor Atrovent prn Continue Robitussin prn Continue Claritin 10 daily for allergy sxs Nicotine use disorder - Chronic From prior note: 1 ppd x 20 y, 1/2 ppd x 3 y C/w Nicoderm patch Electrolyte imbalance - Hypokalemia, Hypomagnesemia, resolving F/u am labs, replete as needed Mg 1.4, K 3.2 - repleted, continue to monitor PPX, Diet, Dispo Hydrocortisone 1% cream top tid for R upper inner arm macular rash - improved Vitamin A+D top q 8h prn for dry lips Saliva substitute q 6 h prn for dry mouth IVF not indicated at this time VTE ppx: Lovenox 40 subQ d, SCDs, encourage ambulation GI ppx: Protonix 40 mg IV bid, Florastor bid Code status: Full code Continue PT services, follow up recs Dispo: Continue to optimize patient for reversal surgery. Dr. Harley to coordinate with Dr. Mccray plan for intervention. Pt to remain inpatient until reversal procedure performed by surgical team. Per discussion with Dba, pt acquired insurance yesterday. Surgery cleared patient to go to LTACH facility and have reversal procedure done electively. Awaiting official facility for LTACH as per Case Management. Pt to be d/c'd after PICC line placed by IR. Pt seen, examined with, and plan discussed with Dr. Kirby, attending physician. Morris Connolly DO PGY-1, Data Entry Supervisor Pager #[phone] <Wesley Kirby - Last Filed: 08/04/18 13:36> Attending/Attestation - Attestation I have personally seen and examined this patient.: Yes I have fully participated in the care of the patient.: Yes I have reviewed all pertinent clinical information, including history, physical exam and plan: Yes Notes (Text): Ischemic bowel disease 2/2 internal hernia producing bowel obstruction Fever, possible sepsis Bacteremia Chronic pain syndrome Tachycardia, persistent, hx into 110s-130s - possible etiologies include pain, infection, anxiety Diarrhea awaiting final decision re surgery to connect stomach with bowel after infection improves
[2018-07-21] MEDS: oxyCODONE 10 mg Immediate Release Tab PO PRN (18:14)
--- NOTE | 2018-07-21 18:20 | CP.PCM.PN ---
Subjective - Date & Time of Evaluation Date of Evaluation: 07/21/18 Time of Evaluation: 15:00 - Subjective Subjective: dictated Objective - Vital Signs/Intake and Output Vital Signs (last 24 hours): Temp Pulse Resp BP Pulse Ox 98.3 F 87 20 111/76 98 07/21/18 15:04 07/21/18 15:04 07/21/18 15:04 07/21/18 15:04 07/21/18 15:04 Intake and Output: 07/21/18 07/21/18 06:59 18:59 Intake Total 1900 Output Total 354 Balance 1546 - Medications Medications: Current Medications Acetaminophen (Tylenol 650mg/20.3ml Solution Ud) 975 mg GT Q8H PRN PRN Reason: Pain, Mild (1-3) Last Admin: 07/19/18 23:04 Dose: 975 mg Benzocaine/Menthol (Cepacol Sore Throat) 1 sravan MT Q2H PRN PRN Reason: Sore Throat Last Admin: 07/21/18 09:38 Dose: 1 sravan Calcium Acetate (Phoslo) 667 mg GT TIDCC [facility] Last Admin: 07/21/18 18:12 Dose: 667 mg Cholestyramine Resin (Questran) 4 gm PO BID [facility] Last Admin: 07/21/18 09:38 Dose: 4 gm Dextrose (Dextrose 50% Inj) 0 ml IV STAT PRN; Protocol PRN Reason: Hypoglycemia Protocol Last Admin: 07/19/18 16:49 Dose: 50 ml Dextrose (Glutose 15) 0 gm PO ONCE PRN; Protocol PRN Reason: Hypoglycemia Protocol Ergocalciferol (Drisdol 50,000 Intl Units Cap) 1 cap PO Q7D [facility] Stop: 09/14/18 10:01 Last Admin: 07/20/18 10:33 Dose: 1 cap Escitalopram Oxalate (Lexapro) 10 mg GT DAILY [facility] Last Admin: 07/21/18 09:38 Dose: 10 mg Gentamicin Sulfate (Gentamicin 0.1%) 0 gm TOP TID [facility] Last Admin: 07/21/18 13:35 Dose: 1 applic Glucagon (Glucagen Diagnostic Kit) 0 mg IM STAT PRN; Protocol PRN Reason: Hypoglycemia Protocol Guaifenesin (Robitussin) 100 mg PO Q4H PRN PRN Reason: Cough Last Admin: 07/21/18 18:12 Dose: 100 mg Hydromorphone HCl (Dilaudid) 1 mg IVP Q3H PRN PRN Reason: Pain, moderate (4-7) Last Admin: 07/21/18 16:30 Dose: 1 mg Meropenem 1 gm/ Sodium (Chloride) 100 mls @ 100 mls/hr IVPB Q8H [facility]; Protocol Last Admin: 07/21/18 16:00 Dose: 100 mls/hr Micafungin Sodium 100 mg/ (Sodium Chloride) 100 mls @ 100 mls/hr IV Q24H [facility]; Protocol Last Admin: 07/20/18 22:55 Dose: 100 mls/hr Insulin Human Regular (Novolin R) 0 unit SC ACHS [facility]; Protocol Last Admin: 07/21/18 12:05 Dose: Not Given Ipratropium [place] (Atrovent) 0.5 mg IH RQ6 [facility] Last Admin: 07/21/18 13:34 Dose: 0.5 mg Loperamide HCl (Imodium) 1 mg PO Q2H PRN PRN Reason: Diarrhea Last Admin: 07/21/18 18:12 Dose: 1 mg Loratadine (Claritin) 10 mg PO DAILY [facility] Last Admin: 07/21/18 09:25 Dose: 10 mg Lorazepam (Ativan) 1 mg IVP BID [facility] Last Admin: 07/21/18 18:11 Dose: 1 mg Metoprolol Tartrate (Lopressor) 12.5 mg PEG BID [facility] Last Admin: 07/21/18 09:38 Dose: 12.5 mg Nicotine (Nicoderm Cq) 1 patch TD DAILY [facility] Last Admin: 07/21/18 09:38 Dose: 1 patch Ondansetron HCl (Zofran Inj) 4 mg IVP Q6H PRN PRN Reason: Nausea/Vomiting Last Admin: 07/21/18 18:11 Dose: 4 mg Oxycodone HCl (Oxycodone Immediate Release Tab) 10 mg PO Q6 PRN PRN Reason: Pain, severe (8-10) Last Admin: 07/21/18 18:14 Dose: 10 mg Pantoprazole Sodium (Protonix Susp) 40 mg PO DAILY [facility] Last Admin: 07/21/18 09:38 Dose: 40 mg Saliva Substitute (Mouth Kote 236 Ml) 0 ml MM Q6 PRN PRN Reason: Dry mouth Vitamin A (Vitamin A & D Oint Ud Foilpak) 1 ea TOP Q8 PRN PRN Reason: dry lips Vitamin E (Vitamin E 400 Units Cap) 400 intlu GT DAILY [facility] Last Admin: 07/21/18 09:39 Dose: 400 intlu - Labs Labs: 07/21/18 07:22 07/21/18 07:22 PT 14.3 SECONDS (9.7-12.2) H 06/10/18 07:05 INR 1.3 06/10/18 07:05 APTT 33 SECONDS (21-34) 05/25/18 06:16
[2018-07-21] MEDS: Micafungin 100 MG in Sodium Chloride 0.9% 100 ML IV SCH (22:00)
[2018-07-22] MEDS: Ipratropium 0.02% Inhal Soln (0.5 mg/2.5 ml) UD IH SCH ×4 (01:23→19:31)
[2018-07-22] MEDS: HYDROmorphone 1 mg/ml ISec IVP PRN ×8 (01:35→22:56)
[2018-07-22] MEDS: Meropenem 1 GM in Sodium Chloride 0.9% 100 ML IVPB SCH ×2 (06:59→16:45)
[2018-07-22 07:33] LABS: BASO % 0.6 % (0.0-2.0); EOS # 0.6 K/uL (0.0-0.7); EOS % 9.2 % (0.0-4.0); HEMOGLOBIN 10.2 g/dL (11.0-16.0); LYMPH # 2.5 K/uL (1.0-4.3); LYMPH % 37.2 % (20.0-40.0); MEAN CELL VOLUME 86.1 fL (81.0-99.0); MEAN CORPUSCULAR HEMOGLOBIN 28.5 pg (27.0-31.0); MEAN CORPUSCULAR HGB CONC 33.1 g/dL (33.0-37.0); MEAN PLATELET VOLUME 6.9 fL (7.2-11.7); MONO # 0.4 K/uL (0.0-0.8); NEUT # 3.1 K/uL (1.8-7.0); RBC 3.58 Mil/uL (3.80-5.20); RED CELL DISTRIBUTION WIDTH 17.8 % (11.5-14.5); WHITE BLOOD COUNT 6.7 K/uL (4.8-10.8)
[2018-07-22] MEDS: (Novolin R) Insulin Human Regular 100 units/ml vial SC SCH ×7 (07:51→22:09)
[2018-07-22 07:53] LABS: ALB/GLOB RATIO 0.9 (1.0-2.1); ALBUMIN 2.9 g/dL (3.5-5.0); ALT/SGPT 22 U/L (9-52); AST/SGOT 15 U/L (14-36); BLOOD UREA NITROGEN 9 mg/dL (7-17); CALCIUM 8.5 mg/dl (8.6-10.4); GFR NON-AFRICAN AMERICAN > 60
--- NOTE | 2018-07-22 10:32 | PCM.SURG1 ---
Surgeon's Initial Post Op Note - Surgeon's Notes Surgeon: Mehdi Peraza MD Aircraft Ordnance Systems Mechanic: NONE Type of Anesthesia: Local Pre-Operative Diagnosis: Infection Operative Findings: US showed patent right basilic vein Post-Operative Diagnosis: Infection Operation Performed: Single lumen picc placement right arm, 39 CM. Specimen/Specimens Removed: NONE Estimated Blood Loss: EBL {In ML}: 2 Blood Products Given: N/A Drains Used: No Drains Post-Op Condition: Fair Date of Surgery/Procedure: 07/22/18 Time of Surgery/Procedure: 10:25
[2018-07-22] MEDS: GENTAMICIN 0.1% TOP SCH ×3 (10:57→18:18)
[2018-07-22] MEDS: Pantoprazole 40 mg Susp UD PO SCH (10:58)
[2018-07-22] MEDS: Loperamide Hydrochloride 1 mg/5 ml Cup PO PRN ×2 (10:59→18:16)
[2018-07-22] MEDS: Cholestyramine 4 gm/Pkt UD PO SCH ×2 (10:59→18:16)
[2018-07-22] MEDS: guaiFENesin 100 mg/5 ml Syrup UD PO PRN ×2 (11:01→18:16)
--- NOTE | 2018-07-22 11:12 | US ---
Date of procedure: 07/22/2018 Procedure: Ultrasound guidance for vascular access HISTORY: Infection requiring long-term IV antibiotics TECHNIQUE: Following informed consent and procedure time-out, the patient placed supine on the interventional table and the right arm prepped and draped in the usual sterile fashion. Ultrasound showed a patent and compressible basilic vein. After the skin was anesthetized with lidocaine, the basilic vein was accessed with micro micropuncture technique using ultrasound guidance. An image documenting ultrasound guidance for vascular access was permanently saved. IMPRESSION: Ultrasound guidance for vascular access for placement of PICC.
--- NOTE | 2018-07-22 11:13 | RAD ---
PROCEDURE: Date of procedure: 07/22/2018 Procedure: 1. Placement of a right arm PICC with ultrasound and fluoroscopic guidance, CPT 25162 2. PICC tip confirmation with spot radiograph and is in the superior vena cava Medications: 1 percent lidocaine Total Fluoro time: 5.7 Seconds Radiation: 1.1 MGy EBL: 2 cc HISTORY: Infection requiring long-term IV antibiotics TECHNIQUE: Following informed consent and procedure time-out, the patient was placed supine on the interventional table and the right arm prepped and draped in the usual sterile fashion. Ultrasound showed a patent and compressible right basilic vein. After the skin was anesthetized with lidocaine, the basilic vein was accessed with micro micropuncture technique using ultrasound guidance. A guidewire was then advanced under fluoroscopic guidance into the superior vena cava. An image documenting ultrasound guidance for vascular access was permanently saved. The length of the single-lumen 4 Pashto PICC was trimmed to 39 centimeters and advanced through a peel-away sheath. The PICC was position with tip of PICC confirm a spot radiograph the superior vena cava. The PICC was secured to the patient's skin. The PICC was flushed. A biopatch and sterile dressing was applied. IMPRESSION: Placement of a single-lumen 4 Pashto PICC trimmed to 39 centimeters via right basilic vein. The tip of the PICC is confirmed with spot radiograph and is in the superior vena cava.
[2018-07-22] MEDS: Benzocaine/Menthol (Cepacol) Lozenge MT PRN ×2 (11:22→19:14)
--- NOTE | 2018-07-22 12:43 | CP.PCM.PN ---
Subjective - Date & Time of Evaluation Date of Evaluation: 07/20/18 Time of Evaluation: 20:00 - Subjective Subjective: Feeling better Objective - Vital Signs/Intake and Output Vital Signs (last 24 hours): Temp Pulse Resp BP Pulse Ox 98.1 F 78 20 129/83 95 07/22/18 08:00 07/22/18 08:00 07/22/18 08:00 07/22/18 08:00 07/22/18 08:00 Intake and Output: 07/22/18 07/22/18 06:59 18:59 Intake Total 1020 Output Total 300 Balance 720 - Medications Medications: Current Medications Acetaminophen (Tylenol 650mg/20.3ml Solution Ud) 975 mg GT Q8H PRN PRN Reason: Pain, Mild (1-3) Last Admin: 07/19/18 23:04 Dose: 975 mg Benzocaine/Menthol (Cepacol Sore Throat) 1 sravan MT Q2H PRN PRN Reason: Sore Throat Last Admin: 07/22/18 11:22 Dose: 1 sravan Calcium Acetate (Phoslo) 667 mg GT TIDCC [facility] Last Admin: 07/22/18 11:02 Dose: 667 mg Cholestyramine Resin (Questran) 4 gm PO BID [facility] Last Admin: 07/22/18 10:59 Dose: 4 gm Dextrose (Dextrose 50% Inj) 0 ml IV STAT PRN; Protocol PRN Reason: Hypoglycemia Protocol Last Admin: 07/19/18 16:49 Dose: 50 ml Dextrose (Glutose 15) 0 gm PO ONCE PRN; Protocol PRN Reason: Hypoglycemia Protocol Ergocalciferol (Drisdol 50,000 Intl Units Cap) 1 cap PO Q7D [facility] Stop: 09/14/18 10:01 Last Admin: 07/20/18 10:33 Dose: 1 cap Escitalopram Oxalate (Lexapro) 10 mg GT DAILY [facility] Last Admin: 07/22/18 10:59 Dose: 10 mg Gentamicin Sulfate (Gentamicin 0.1%) 0 gm TOP TID [facility] Last Admin: 07/22/18 10:57 Dose: 1 applic Glucagon (Glucagen Diagnostic Kit) 0 mg IM STAT PRN; Protocol PRN Reason: Hypoglycemia Protocol Guaifenesin (Robitussin) 100 mg PO Q4H PRN PRN Reason: Cough Hydromorphone HCl (Dilaudid) 1 mg IVP Q3H PRN PRN Reason: Pain, moderate (4-7) Last Admin: 07/22/18 10:55 Dose: 1 mg Meropenem 1 gm/ Sodium (Chloride) 100 mls @ 100 mls/hr IVPB Q8H [facility]; Protocol Last Admin: 07/22/18 06:59 Dose: 100 mls/hr Micafungin Sodium 100 mg/ (Sodium Chloride) 100 mls @ 100 mls/hr IV Q24H [facility]; Protocol Last Admin: 07/21/18 22:00 Dose: 100 mls/hr Insulin Human Regular (Novolin R) 0 unit SC ACHS [facility]; Protocol Last Admin: 07/22/18 07:51 Dose: Not Given Insulin Human Regular (Novolin R) 0 unit SC ACHS [facility]; Protocol Last Admin: 07/22/18 07:51 Dose: Not Given Ipratropium [place] (Atrovent) 0.5 mg IH RQ6 [facility] Last Admin: 07/22/18 07:35 Dose: Not Given Loperamide HCl (Imodium) 1 mg PO Q2H PRN PRN Reason: Diarrhea Last Admin: 07/22/18 10:59 Dose: 1 mg Loratadine (Claritin) 10 mg PO DAILY [facility] Last Admin: 07/22/18 10:58 Dose: 10 mg Lorazepam (Ativan) 1 mg IVP BID [facility] Last Admin: 07/22/18 11:08 Dose: 1 mg Metoprolol Tartrate (Lopressor) 12.5 mg PEG BID [facility] Last Admin: 07/22/18 10:59 Dose: 12.5 mg Nicotine (Nicoderm Cq) 1 patch TD DAILY [facility] Last Admin: 07/22/18 10:59 Dose: 1 patch Ondansetron HCl (Zofran Inj) 4 mg IVP Q6H PRN PRN Reason: Nausea/Vomiting Last Admin: 07/22/18 11:02 Dose: 4 mg Oxycodone HCl (Oxycodone Immediate Release Tab) 10 mg PO Q6 PRN PRN Reason: Pain, severe (8-10) Last Admin: 07/21/18 18:14 Dose: 10 mg Pantoprazole Sodium (Protonix Susp) 40 mg PO DAILY [facility] Last Admin: 07/22/18 10:58 Dose: 40 mg Saliva Substitute (Mouth Kote 236 Ml) 0 ml MM Q6 PRN PRN Reason: Dry mouth Vitamin A (Vitamin A & D Oint Ud Foilpak) 1 ea TOP Q8 PRN PRN Reason: dry lips Vitamin E (Vitamin E 400 Units Cap) 400 intlu GT DAILY [facility] Last Admin: 07/22/18 10:59 Dose: 400 intlu - Labs Labs: 07/22/18 07:00 07/22/18 07:00 PT 14.3 SECONDS (9.7-12.2) H 06/10/18 07:05 INR 1.3 06/10/18 07:05 APTT 33 SECONDS (21-34) 05/25/18 06:16 - Head Exam Head Exam: ATRAUMATIC - Eye Exam Eye Exam: Normal appearance - ENT Exam ENT Exam: Mucous Membranes Dry - Respiratory Exam Respiratory Exam: NORMAL BREATHING PATTERN - Cardiovascular Exam Cardiovascular Exam: +S1, +S2 - GI/Abdominal Exam GI & Abdominal Exam: Normal Bowel Sounds Assessment and Plan (1) Anemia Assessment & Plan: iron deficiency anemia resolved s/p IV iron anemia of chronic disease; will consider Procrit supplementation in an attempt to avoid further transfusions if hgb < 9 FOBT positive transfuse PRN Status: Acute
--- NOTE | 2018-07-22 12:44 | CP.PCM.PN ---
Subjective - Date & Time of Evaluation Date of Evaluation: 07/21/18 Time of Evaluation: 20:00 - Subjective Subjective: Feeling better Objective - Vital Signs/Intake and Output Vital Signs (last 24 hours): Temp Pulse Resp BP Pulse Ox 98.1 F 78 20 129/83 95 07/22/18 08:00 07/22/18 08:00 07/22/18 08:00 07/22/18 08:00 07/22/18 08:00 Intake and Output: 07/22/18 07/22/18 06:59 18:59 Intake Total 1020 Output Total 300 Balance 720 - Medications Medications: Current Medications Acetaminophen (Tylenol 650mg/20.3ml Solution Ud) 975 mg GT Q8H PRN PRN Reason: Pain, Mild (1-3) Last Admin: 07/19/18 23:04 Dose: 975 mg Benzocaine/Menthol (Cepacol Sore Throat) 1 sravan MT Q2H PRN PRN Reason: Sore Throat Last Admin: 07/22/18 11:22 Dose: 1 sravan Calcium Acetate (Phoslo) 667 mg GT TIDCC [facility] Last Admin: 07/22/18 11:02 Dose: 667 mg Cholestyramine Resin (Questran) 4 gm PO BID [facility] Last Admin: 07/22/18 10:59 Dose: 4 gm Dextrose (Dextrose 50% Inj) 0 ml IV STAT PRN; Protocol PRN Reason: Hypoglycemia Protocol Last Admin: 07/19/18 16:49 Dose: 50 ml Dextrose (Glutose 15) 0 gm PO ONCE PRN; Protocol PRN Reason: Hypoglycemia Protocol Ergocalciferol (Drisdol 50,000 Intl Units Cap) 1 cap PO Q7D [facility] Stop: 09/14/18 10:01 Last Admin: 07/20/18 10:33 Dose: 1 cap Escitalopram Oxalate (Lexapro) 10 mg GT DAILY [facility] Last Admin: 07/22/18 10:59 Dose: 10 mg Gentamicin Sulfate (Gentamicin 0.1%) 0 gm TOP TID [facility] Last Admin: 07/22/18 10:57 Dose: 1 applic Glucagon (Glucagen Diagnostic Kit) 0 mg IM STAT PRN; Protocol PRN Reason: Hypoglycemia Protocol Guaifenesin (Robitussin) 100 mg PO Q4H PRN PRN Reason: Cough Hydromorphone HCl (Dilaudid) 1 mg IVP Q3H PRN PRN Reason: Pain, moderate (4-7) Last Admin: 07/22/18 10:55 Dose: 1 mg Meropenem 1 gm/ Sodium (Chloride) 100 mls @ 100 mls/hr IVPB Q8H [facility]; Protocol Last Admin: 07/22/18 06:59 Dose: 100 mls/hr Micafungin Sodium 100 mg/ (Sodium Chloride) 100 mls @ 100 mls/hr IV Q24H [facility]; Protocol Last Admin: 07/21/18 22:00 Dose: 100 mls/hr Insulin Human Regular (Novolin R) 0 unit SC ACHS [facility]; Protocol Last Admin: 07/22/18 07:51 Dose: Not Given Insulin Human Regular (Novolin R) 0 unit SC ACHS [facility]; Protocol Last Admin: 07/22/18 07:51 Dose: Not Given Ipratropium [place] (Atrovent) 0.5 mg IH RQ6 [facility] Last Admin: 07/22/18 07:35 Dose: Not Given Loperamide HCl (Imodium) 1 mg PO Q2H PRN PRN Reason: Diarrhea Last Admin: 07/22/18 10:59 Dose: 1 mg Loratadine (Claritin) 10 mg PO DAILY [facility] Last Admin: 07/22/18 10:58 Dose: 10 mg Lorazepam (Ativan) 1 mg IVP BID [facility] Last Admin: 07/22/18 11:08 Dose: 1 mg Metoprolol Tartrate (Lopressor) 12.5 mg PEG BID [facility] Last Admin: 07/22/18 10:59 Dose: 12.5 mg Nicotine (Nicoderm Cq) 1 patch TD DAILY [facility] Last Admin: 07/22/18 10:59 Dose: 1 patch Ondansetron HCl (Zofran Inj) 4 mg IVP Q6H PRN PRN Reason: Nausea/Vomiting Last Admin: 07/22/18 11:02 Dose: 4 mg Oxycodone HCl (Oxycodone Immediate Release Tab) 10 mg PO Q6 PRN PRN Reason: Pain, severe (8-10) Last Admin: 07/21/18 18:14 Dose: 10 mg Pantoprazole Sodium (Protonix Susp) 40 mg PO DAILY [facility] Last Admin: 07/22/18 10:58 Dose: 40 mg Saliva Substitute (Mouth Kote 236 Ml) 0 ml MM Q6 PRN PRN Reason: Dry mouth Vitamin A (Vitamin A & D Oint Ud Foilpak) 1 ea TOP Q8 PRN PRN Reason: dry lips Vitamin E (Vitamin E 400 Units Cap) 400 intlu GT DAILY [facility] Last Admin: 07/22/18 10:59 Dose: 400 intlu - Labs Labs: 07/22/18 07:00 07/22/18 07:00 PT 14.3 SECONDS (9.7-12.2) H 06/10/18 07:05 INR 1.3 06/10/18 07:05 APTT 33 SECONDS (21-34) 05/25/18 06:16 - Head Exam Head Exam: ATRAUMATIC - Eye Exam Eye Exam: Normal appearance - ENT Exam ENT Exam: Mucous Membranes Dry - Respiratory Exam Respiratory Exam: NORMAL BREATHING PATTERN - Cardiovascular Exam Cardiovascular Exam: +S1, +S2 - GI/Abdominal Exam GI & Abdominal Exam: Normal Bowel Sounds Assessment and Plan (1) Anemia Assessment & Plan: iron deficiency anemia resolved s/p IV iron anemia of chronic disease; will consider Procrit supplementation in an attempt to avoid further transfusions if hgb < 9 FOBT positive transfuse PRN Status: Acute
--- NOTE | 2018-07-22 12:45 | CP.PCM.PN ---
Subjective - Date & Time of Evaluation Date of Evaluation: 07/22/18 Time of Evaluation: 12:15 - Subjective Subjective: Feeling better Objective - Vital Signs/Intake and Output Vital Signs (last 24 hours): Temp Pulse Resp BP Pulse Ox 98.1 F 78 20 129/83 95 07/22/18 08:00 07/22/18 08:00 07/22/18 08:00 07/22/18 08:00 07/22/18 08:00 Intake and Output: 07/22/18 07/22/18 06:59 18:59 Intake Total 1020 Output Total 300 Balance 720 - Medications Medications: Current Medications Acetaminophen (Tylenol 650mg/20.3ml Solution Ud) 975 mg GT Q8H PRN PRN Reason: Pain, Mild (1-3) Last Admin: 07/19/18 23:04 Dose: 975 mg Benzocaine/Menthol (Cepacol Sore Throat) 1 sravan MT Q2H PRN PRN Reason: Sore Throat Last Admin: 07/22/18 11:22 Dose: 1 sravan Calcium Acetate (Phoslo) 667 mg GT TIDCC [facility] Last Admin: 07/22/18 11:02 Dose: 667 mg Cholestyramine Resin (Questran) 4 gm PO BID [facility] Last Admin: 07/22/18 10:59 Dose: 4 gm Dextrose (Dextrose 50% Inj) 0 ml IV STAT PRN; Protocol PRN Reason: Hypoglycemia Protocol Last Admin: 07/19/18 16:49 Dose: 50 ml Dextrose (Glutose 15) 0 gm PO ONCE PRN; Protocol PRN Reason: Hypoglycemia Protocol Ergocalciferol (Drisdol 50,000 Intl Units Cap) 1 cap PO Q7D [facility] Stop: 09/14/18 10:01 Last Admin: 07/20/18 10:33 Dose: 1 cap Escitalopram Oxalate (Lexapro) 10 mg GT DAILY [facility] Last Admin: 07/22/18 10:59 Dose: 10 mg Gentamicin Sulfate (Gentamicin 0.1%) 0 gm TOP TID [facility] Last Admin: 07/22/18 10:57 Dose: 1 applic Glucagon (Glucagen Diagnostic Kit) 0 mg IM STAT PRN; Protocol PRN Reason: Hypoglycemia Protocol Guaifenesin (Robitussin) 100 mg PO Q4H PRN PRN Reason: Cough Hydromorphone HCl (Dilaudid) 1 mg IVP Q3H PRN PRN Reason: Pain, moderate (4-7) Last Admin: 07/22/18 10:55 Dose: 1 mg Meropenem 1 gm/ Sodium (Chloride) 100 mls @ 100 mls/hr IVPB Q8H [facility]; Protocol Last Admin: 07/22/18 06:59 Dose: 100 mls/hr Micafungin Sodium 100 mg/ (Sodium Chloride) 100 mls @ 100 mls/hr IV Q24H [facility]; Protocol Last Admin: 07/21/18 22:00 Dose: 100 mls/hr Insulin Human Regular (Novolin R) 0 unit SC ACHS [facility]; Protocol Last Admin: 07/22/18 07:51 Dose: Not Given Insulin Human Regular (Novolin R) 0 unit SC ACHS [facility]; Protocol Last Admin: 07/22/18 07:51 Dose: Not Given Ipratropium [place] (Atrovent) 0.5 mg IH RQ6 [facility] Last Admin: 07/22/18 07:35 Dose: Not Given Loperamide HCl (Imodium) 1 mg PO Q2H PRN PRN Reason: Diarrhea Last Admin: 07/22/18 10:59 Dose: 1 mg Loratadine (Claritin) 10 mg PO DAILY [facility] Last Admin: 07/22/18 10:58 Dose: 10 mg Lorazepam (Ativan) 1 mg IVP BID [facility] Last Admin: 07/22/18 11:08 Dose: 1 mg Metoprolol Tartrate (Lopressor) 12.5 mg PEG BID [facility] Last Admin: 07/22/18 10:59 Dose: 12.5 mg Nicotine (Nicoderm Cq) 1 patch TD DAILY [facility] Last Admin: 07/22/18 10:59 Dose: 1 patch Ondansetron HCl (Zofran Inj) 4 mg IVP Q6H PRN PRN Reason: Nausea/Vomiting Last Admin: 07/22/18 11:02 Dose: 4 mg Oxycodone HCl (Oxycodone Immediate Release Tab) 10 mg PO Q6 PRN PRN Reason: Pain, severe (8-10) Last Admin: 07/21/18 18:14 Dose: 10 mg Pantoprazole Sodium (Protonix Susp) 40 mg PO DAILY [facility] Last Admin: 07/22/18 10:58 Dose: 40 mg Saliva Substitute (Mouth Kote 236 Ml) 0 ml MM Q6 PRN PRN Reason: Dry mouth Vitamin A (Vitamin A & D Oint Ud Foilpak) 1 ea TOP Q8 PRN PRN Reason: dry lips Vitamin E (Vitamin E 400 Units Cap) 400 intlu GT DAILY [facility] Last Admin: 07/22/18 10:59 Dose: 400 intlu - Labs Labs: 07/22/18 07:00 07/22/18 07:00 PT 14.3 SECONDS (9.7-12.2) H 06/10/18 07:05 INR 1.3 06/10/18 07:05 APTT 33 SECONDS (21-34) 05/25/18 06:16 - Head Exam Head Exam: ATRAUMATIC - Eye Exam Eye Exam: Normal appearance - ENT Exam ENT Exam: Mucous Membranes Dry - Respiratory Exam Respiratory Exam: NORMAL BREATHING PATTERN - Cardiovascular Exam Cardiovascular Exam: +S1, +S2 - GI/Abdominal Exam GI & Abdominal Exam: Normal Bowel Sounds Assessment and Plan (1) Anemia Assessment & Plan: iron deficiency anemia resolved s/p IV iron anemia of chronic disease; will consider Procrit supplementation in an attempt to avoid further transfusions if hgb < 9 FOBT positive transfuse PRN Status: Acute
--- NOTE | 2018-07-22 13:20 | CP.PCM.PN ---
Addendum entered and electronically signed by Morris Connolly DO 07/22/18 19:37: Was called to bedside this evening after pt requested to speak with me regarding rationale for 1:1 observation placed and psych consult. Pt requested that her mother be involved in the conversation and mother was contacted on patient's cell phone. Explained to patient and patient's mother Conrad Dong the current disposition regarding patient's care and medical management prior to reversal procedure being performed, and how her medical management needed to be optimized prior. Discussed current antibiotic regimen, PICC line that was placed today by Interventional Radiology. Also affirmed and dictated to patient and her mother that if patient decides to personally remove her abdominal wound vac, NG tube, and gastrostomy tube on own and leave tonight to home, she would likely not surv chong at home without parental nutrition and be susceptible to further infections without her wound vac intact. Informed patient that because she threatened to hurt herself, the 1:1 observation is necessary at this time until Psychiatry is able to assess and make a recommendation. Patient was not pleased with this and was observed by staff to bang her fists against the wall of her bedroom. Per staff and attending Dr. Turk, pt was stating earlier this afternoon that she would rather "go home and than be in the hospital any longer"; stat psych consult and 1:1 observation were placed earlier today. Spoke with Dr. Browning (Psychiatry) who was aware of consult, stated that attending Dr. Carbajal is covering for the weekend and would come and evaluate the patient. 1:1 observation to be continued. Discussed with attending, Dr. Turk, who agrees with plan. Original Note: <Morris Connolly - Last Filed: 07/22/18 15:25> Subjective - Date & Time of Evaluation Date of Evaluation: 07/22/18 Time of Evaluation: 07:45 - Subjective Subjective: Progress Note for Hospitalist Service Pt seen and examined at bedside this am. Denies any acute complaints. States that she does not want to go to LTACH facility and would rather stay at the hospital until her reversal procedure is performed. 100 cc noted in NGT this am. Abd wound vac and gastrostomy tube intact. No acute events reported overnight. Pt asking for her pain meds. 12-point ROS obtained, otherwise neg as per pt. Objective - Vital Signs/Intake and Output Vital Signs (last 24 hours): Temp Pulse Resp BP Pulse Ox 98.1 F 78 20 129/83 95 07/22/18 08:00 07/22/18 08:00 07/22/18 08:00 07/22/18 08:00 07/22/18 08:00 Intake and Output: 07/22/18 07/22/18 06:59 18:59 Intake Total 1020 Output Total 300 Balance 720 - Medications Medications: Current Medications Acetaminophen (Tylenol 650mg/20.3ml Solution Ud) 975 mg GT Q8H PRN PRN Reason: Pain, Mild (1-3) Last Admin: 07/19/18 23:04 Dose: 975 mg Benzocaine/Menthol (Cepacol Sore Throat) 1 sravan MT Q2H PRN PRN Reason: Sore Throat Last Admin: 07/22/18 11:22 Dose: 1 sravan Calcium Acetate (Phoslo) 667 mg GT TIDCC [facility] Last Admin: 07/22/18 11:02 Dose: 667 mg Cholestyramine Resin (Questran) 4 gm PO BID [facility] Last Admin: 07/22/18 10:59 Dose: 4 gm Dextrose (Dextrose 50% Inj) 0 ml IV STAT PRN; Protocol PRN Reason: Hypoglycemia Protocol Last Admin: 07/19/18 16:49 Dose: 50 ml Dextrose (Glutose 15) 0 gm PO ONCE PRN; Protocol PRN Reason: Hypoglycemia Protocol Ergocalciferol (Drisdol 50,000 Intl Units Cap) 1 cap PO Q7D [facility] Stop: 09/14/18 10:01 Last Admin: 07/20/18 10:33 Dose: 1 cap Escitalopram Oxalate (Lexapro) 10 mg GT DAILY [facility] Last Admin: 07/22/18 10:59 Dose: 10 mg Gentamicin Sulfate (Gentamicin 0.1%) 0 gm TOP TID [facility] Last Admin: 07/22/18 10:57 Dose: 1 applic Glucagon (Glucagen Diagnostic Kit) 0 mg IM STAT PRN; Protocol PRN Reason: Hypoglycemia Protocol Guaifenesin (Robitussin) 100 mg PO Q4H PRN PRN Reason: Cough Hydromorphone HCl (Dilaudid) 1 mg IVP Q3H PRN PRN Reason: Pain, moderate (4-7) Last Admin: 07/22/18 10:55 Dose: 1 mg Meropenem 1 gm/ Sodium (Chloride) 100 mls @ 100 mls/hr IVPB Q8H [facility]; Protocol Last Admin: 07/22/18 06:59 Dose: 100 mls/hr Micafungin Sodium 100 mg/ (Sodium Chloride) 100 mls @ 100 mls/hr IV Q24H KATELYN; Protocol Last Admin: 07/21/18 22:00 Dose: 100 mls/hr Insulin Human Regular (Novolin R) 0 unit SC ACHS [facility]; Protocol Last Admin: 07/22/18 07:51 Dose: Not Given Insulin Human Regular (Novolin R) 0 unit SC ACHS [facility]; Protocol Last Admin: 07/22/18 07:51 Dose: Not Given Ipratropium [place] (Atrovent) 0.5 mg IH RQ6 [facility] Last Admin: 07/22/18 13:07 Dose: 0.5 mg Loperamide HCl (Imodium) 1 mg PO Q2H PRN PRN Reason: Diarrhea Last Admin: 07/22/18 10:59 Dose: 1 mg Loratadine (Claritin) 10 mg PO DAILY [facility] Last Admin: 07/22/18 10:58 Dose: 10 mg Lorazepam (Ativan) 1 mg IVP BID [facility] Last Admin: 07/22/18 11:08 Dose: 1 mg Metoprolol Tartrate (Lopressor) 12.5 mg PEG BID [facility] Last Admin: 07/22/18 10:59 Dose: 12.5 mg Nicotine (Nicoderm Cq) 1 patch TD DAILY [facility] Last Admin: 07/22/18 10:59 Dose: 1 patch Ondansetron HCl (Zofran Inj) 4 mg IVP Q6H PRN PRN Reason: Nausea/Vomiting Last Admin: 07/22/18 11:02 Dose: 4 mg Oxycodone HCl (Oxycodone Immediate Release Tab) 10 mg PO Q6 PRN PRN Reason: Pain, severe (8-10) Last Admin: 07/21/18 18:14 Dose: 10 mg Pantoprazole Sodium (Protonix Susp) 40 mg PO DAILY [facility] Last Admin: 07/22/18 10:58 Dose: 40 mg Saliva Substitute (Mouth Kote 236 Ml) 0 ml MM Q6 PRN PRN Reason: Dry mouth Vitamin A (Vitamin A & D Oint Ud Foilpak) 1 ea TOP Q8 PRN PRN Reason: dry lips Vitamin E (Vitamin E 400 Units Cap) 400 intlu GT DAILY [facility] Last Admin: 07/22/18 10:59 Dose: 400 intlu - Labs Labs: 07/22/18 07:00 07/22/18 07:00 PT 14.3 SECONDS (9.7-12.2) H 06/10/18 07:05 INR 1.3 06/10/18 07:05 APTT 33 SECONDS (21-34) 05/25/18 06:16 - Constitutional Appears: Non-toxic, No Acute Distress, Chronically Ill - Head Exam Head Exam: ATRAUMATIC, NORMOCEPHALIC - Eye Exam Eye Exam: EOMI, Normal appearance, PERRL - ENT Exam ENT Exam: Mucous Membranes Moist Additional comments: NGT in place, not dislodged - Respiratory Exam Respiratory Exam: Clear to Ausculation Bilateral, NORMAL BREATHING PATTERN. absent: Rales, Rhonchi, Wheezes - Cardiovascular Exam Cardiovascular Exam: REGULAR RHYTHM, +S1, +S2. absent: Gallop, Rubs, Murmur - GI/Abdominal Exam GI & Abdominal Exam: Soft, Normal Bowel Sounds. absent: Distended, Firm, Guarding, Rigid, Tenderness, Organomegaly, Rebound Additional comments: Abd wound vac and gastrostomy tube c/d/i - Extremities Exam Extremities Exam: Full ROM, Normal Capillary Refill, Normal Inspection. absent: Calf Tenderness, Pedal Edema - Neurological Exam Neurological Exam: Alert, Awake, CN II-XII Intact, Normal Gait, Oriented x3 - Skin Skin Exam: Dry, Intact, Warm Assessment and Plan - Assessment and Plan (Free Text) Plan: Ischemic bowel disease 2/2 internal hernia producing bowel obstruction Current drains include: NGT (intermittent suction per surgery recs) replaced on 07/09/18 by surgery team, gastrostomy tube (replaced 06/10/18) Latest wound cultures: -Abd incision, Peg incision site => Pseudomonas aeruginosa, sensitive to Meropenem -Per ID: Meropenem 1 g q 8 h (d/c 07/11; restarted 07/12), Vancomycin 1.5 g IVPB q 12 h (d/c on 07/05/18; restarted Vanco 1 g q 12h on 07/16) -vanco trough 07/05 -- 15.1 -Repeat abd wound cx 07/12 growing Pseudomonas and Chula Lusitaniae Surgery (Dr. Harley) consulted - awaiting Dr Mccray's response on surgical intervention; f/u with surgical team regarding dispo => per surgery pt cleared to go to LTACH facility and have reversal procedure done electively; waiting to hear from surgery regarding time and date for scheduled procedure Wound vac to continuous suction, to be replaced Q72hrs Heme/onc (Dr. Cash) consulted for Fe status - repeat ferritin 185, no need for iron infusion at this time, continue to monitor Other cultures: 06/22/18: abd incision => Pseudomonas aeruginosa sensitive to Meropenem 06/22/18: Peg site => Pseudomonas aeruginosa sensitive to Meropenem 05/14/18: Peritoneal fluid => Pseudomonas aeruginosa sensitive to Meropenem 05/23/18: Wound cx => Chula albicans 05/15/18, 05/22/18: Blood cx => no growth 05/22/18: Urine cx => no growth 05/31/18: Incision site => Enterococcus faecalis, Acinetobacter baumannii 06/03/18: Stool cxs => No Salmonella, Shigella, or Campylobacter isolates 06/13/18: Repeat wound cx => Coag-neg Staph, Enterococcus raffinosus 07/12/18 Repeat wound cx growing Pseudomonas and Chula Lusitaniae 07/14/18 repeat blood cxs NG 07/15/18 repeat blood cxs through central line NG 07/15/18 Sputum cx no growth 07/15/18 Urine cx no growth 07/16/18 blood culture x2 via PICC line grew E. faecalis sensitive to vancomycin -Echocardiogram (07/18) shows EF approximately 56%, AV mildly thickened, MV moderately thickened. No vegetation. 07/18/18: NG for 4 days Antibiotics: Continue Meropenem 1 g q 8 h IVPB ; restarted as per ID due to pos abd wound cx (07/12) Vancomycin 1 g IV q 12 h started 07/16 Cipro 400 mg IV q 12h d/c'd (started 06/02/18, last day 06/16/18) Flagyl 500 mg IVPB q 8 h completed (active from 05/15/18-06/19/18) Micafungin 100mg IV Q24hrs Continue Gentamicin 0.1% TOP TID apply cream to peg tube site F/u vitamin levels and replace as needed: Vit D < 12.8, 22502 U q1 wk x 8 wks B12 707, wnl; repeat B12 508 Folate 12.6, wnl Vit A 42, wnl Alpha vit E 5.6, wnl Zinc level wnl Vit A, B1, B6, E levels reordered on 06/15 Vit B1: inappropriately submitted, 06/01/18 valve acceptable Vit B6: 5.9, wnl Vit A, E collected Repeat Vitamin levels ordered on 07/08, f/u results 07/08: Pre-albumin 11.6, B12 508, 25-OH vit D < 12.8, vit A 33, vit E wnl As per shellfish grower recs on 07/15, feeds changed to Jevity 1.5 with goal rate 50 mL C/w Tylenol 975 mg liquid q 8h, Dilaudid 1 mg q 3 h prn, Zofran 4 mg IV q 6 h prn; Oxycodone IR 10 mg q6h prn Fever, possible sepsis - Afebrile - abdominal wound culture shows chula and pseudomonas - chest x ray - lungs clear to auscultation b/l, no acute findings - Repeat portable chest x ray 07/18 - in situ NGT, the tip of which overlies the lower mediastinum and must be advanced. no acute infiltrates. - PICC Line removed(07/17) - catheter tip culture is negative for growth - New PICC line placed by IR (Dr. Peraza) on 07/22/18 - f/u sputum cultures - normal renetta - Urine culture - no growth, final - WBC 07/22 - 6.7 -F/u Bl Doppler to rule out DVT - no DVT bilaterally -VBG/lactate level - ph: 7.45, pCO2: 39, lactate 0.9 - Normal saline @ 100mls/hr - continue tylenol for fevers -abx: Meropenem 1 g q 8 h IVPB, Vancomycin 1 g IV q 12 h - random vanc is 11.2 - blood culture through picc line grew E. faecalis sensitive to vancomycin -continue with current abx as per ID Tachycardia, persistent, hx into 110s-130s - possible etiologies include pain, infection, anxiety Today HR - 80, continue to monitor and trend Ativan prn, Dilaudid prn C/w metoprolol tartrate 12.5 mg bid via PEG tube Diarrhea- suspect 2/2 PO intake by patient C. Diff (05/22, 05/24, 05/28, 07/17) neg Stool ova and parasites (05/25/18) neg Stool leukocytes (05/25/18) neg Imodium 1 mg PO q 2h prn Anxiety [employer] Liaison Officer consulted - pt refusing at this time Psych consulted (Dr. Reyez) - managing Ativan, c/w prn Lexapro 10 mg GT daily (started 05/31) Insomnia - Benadryl d/c'd, clinically not indicated Anemia, acute, stable, pt denies blood in stool Total 2 PRBC (on 05/16) and 4 FFP (on 05/15 and 05/16) H/H is stable Iron 16, TIBC 205, % sat 4.7, repeat ferritin 185 after Ferrlecit Monitor CBC q2d Per Dr. Cash, consider Procrit supplementation in attempt to avoid further transfusions if Hgb < 9; transfuse prn Thrombocytosis - suspect reactive to pain, surgery; resolved 07/22 platelets: 434 DM2, controlled From prior note: admittedly non-compliant, has not taken Januvia for 1 y Accuchecks q6h Hypoglycemic protocol ISS regular HgbA1c 5.8 Hx gastric bypass surgery Hypercholesterolemia, untx LDL < 30, HDL < 23, Chol 59, TG 195 (06/03/18) Hx gastric bypass surgery Questran 4 g PO bid via PEG tube Hx HTN, controlled Metoprolol 12.5 mg bid via PEG tube Hx Asthma - Chronic Continue to monitor Atrovent prn Continue Robitussin prn Continue Claritin 10 daily for allergy sxs Nicotine use disorder - Chronic From prior note: 1 ppd x 20 y, 1/2 ppd x 3 y C/w Nicoderm patch Electrolyte imbalance - Hypokalemia, Hypomagnesemia, resolving F/u am labs, replete as needed Mg 1.4, K 3.2 - repleted, continue to monitor PPX, Diet, Dispo Hydrocortisone 1% cream top tid for R upper inner arm macular rash - improved Vitamin A+D top q 8h prn for dry lips Saliva substitute q 6 h prn for dry mouth IVF not indicated at this time VTE ppx: Lovenox 40 subQ d, SCDs, encourage ambulation GI ppx: Protonix 40 mg IV bid, Florastor bid Code status: Full code Continue PT services, follow up recs Dispo: Continue to optimize patient for reversal surgery. Dr. Harley to coordinate with Dr. Mccray plan for intervention. Per discussion with Case Jannie hurtado, pt acquired insurance. Surgery cleared patient to go to LTACH facility and have reversal procedure done electively. Spoke with surgery team today, awaiting information regarding scheduled date and time for elective reversal procedure. Awaiting official facility for LTACH as per Case Management. PICC line placed by IR today. Attempted to call pt's mother today, Conrad Dong ([phone]) to update with dispo plan, but family member did not answer. Will continue to follow up. Pt aware that I reached out to her mother. Pt seen, examined with, and plan discussed with Dr. Turk, attending physician. Morris Connolly DO PGY-1, [employer] Operator Pager #[phone] <Doretha Turk V - Last Filed: 07/22/18 20:24> Objective - Vital Signs/Intake and Output Vital Signs (last 24 hours): Temp Pulse Resp BP Pulse Ox 98.2 F 77 20 129/89 95 07/22/18 15:29 07/22/18 15:29 07/22/18 15:29 07/22/18 15:29 07/22/18 15:29 Intake and Output: 07/22/18 07/23/18 18:59 06:59 Intake Total 400 Output Total 0 Balance 400 - Medications Medications: Current Medications Acetaminophen (Tylenol 650mg/20.3ml Solution Ud) 975 mg GT Q8H PRN PRN Reason: Pain, Mild (1-3) Last Admin: 07/19/18 23:04 Dose: 975 mg Benzocaine/Menthol (Cepacol Sore Throat) 1 sravan MT Q2H PRN PRN Reason: Sore Throat Last Admin: 07/22/18 19:14 Dose: 1 sravan Calcium Acetate (Phoslo) 667 mg GT TIDCC [facility] Last Admin: 07/22/18 18:16 Dose: 667 mg Cholestyramine Resin (Questran) 4 gm PO BID [facility] Last Admin: 07/22/18 18:16 Dose: 4 gm Ergocalciferol (Drisdol 50,000 Intl Units Cap) 1 cap PO Q7D [facility] Stop: 09/14/18 10:01 Last Admin: 07/20/18 10:33 Dose: 1 cap Escitalopram Oxalate (Lexapro) 10 mg GT DAILY [facility] Last Admin: 07/22/18 10:59 Dose: 10 mg Gentamicin Sulfate (Gentamicin 0.1%) 0 gm TOP TID [facility] Last Admin: 07/22/18 18:18 Dose: 1 applic Guaifenesin (Robitussin) 100 mg PO Q4H PRN PRN Reason: Cough Last Admin: 07/22/18 18:16 Dose: 100 mg Hydromorphone HCl (Dilaudid) 1 mg IVP Q3H PRN PRN Reason: Pain, moderate (4-7) Last Admin: 07/22/18 16:56 Dose: 1 mg Meropenem 1 gm/ Sodium (Chloride) 100 mls @ 100 mls/hr IVPB Q8H [facility]; Protocol Last Admin: 07/22/18 16:45 Dose: 100 mls/hr Micafungin Sodium 100 mg/ (Sodium Chloride) 100 mls @ 100 mls/hr IV Q24H [facility]; Protocol Last Admin: 07/21/18 22:00 Dose: 100 mls/hr Vancomycin HCl 1,000 mg/ (Sodium Chloride) 250 mls @ 166.6 mls/hr IVPB Q12H S ; Protocol Last Admin: 07/22/18 18:45 Dose: 166.6 mls/hr Insulin Human Regular (Novolin R) 0 unit SC ACHS [facility]; Protocol Last Admin: 07/22/18 17:30 Dose: Not Given Ipratropium [place] (Atrovent) 0.5 mg IH RQ6 [facility] Last Admin: 07/22/18 19:31 Dose: Not Given Loperamide HCl (Imodium) 1 mg PO Q2H PRN PRN Reason: Diarrhea Last Admin: 07/22/18 18:16 Dose: 1 mg Loratadine (Claritin) 10 mg PO DAILY [facility] Last Admin: 07/22/18 10:58 Dose: 10 mg Lorazepam (Ativan) 1 mg IVP BID [facility] Last Admin: 07/22/18 18:16 Dose: 1 mg Metoprolol Tartrate (Lopressor) 12.5 mg PEG BID [facility] Last Admin: 07/22/18 18:17 Dose: 12.5 mg Nicotine (Nicoderm Cq) 1 patch TD DAILY [facility] Last Admin: 07/22/18 10:59 Dose: 1 patch Ondansetron HCl (Zofran Inj) 4 mg IVP Q6H PRN PRN Reason: Nausea/Vomiting Last Admin: 07/22/18 11:02 Dose: 4 mg Oxycodone HCl (Oxycodone Immediate Release Tab) 10 mg PO Q6 PRN PRN Reason: Pain, severe (8-10) Last Admin: 07/22/18 15:08 Dose: 10 mg Pantoprazole Sodium (Protonix Susp) 40 mg PO DAILY [facility] Last Admin: 07/22/18 10:58 Dose: 40 mg Saliva Substitute (Mouth Kote 236 Ml) 0 ml MM Q6 PRN PRN Reason: Dry mouth Vitamin A (Vitamin A & D Oint Ud Foilpak) 1 ea TOP Q8 PRN PRN Reason: dry lips Vitamin E (Vitamin E 400 Units Cap) 400 intlu GT DAILY [facility] Last Admin: 07/22/18 10:59 Dose: 400 intlu - Labs Labs: 07/22/18 07:00 07/22/18 07:00 PT 14.3 SECONDS (9.7-12.2) H 06/10/18 07:05 INR 1.3 06/10/18 07:05 APTT 33 SECONDS (21-34) 05/25/18 06:16 Assessment and Plan (1) Ischemic bowel disease Status: Acute (2) Obesity (BMI 30-39.9) Status: Acute (3) Small bowel obstruction Status: Acute (4) Prophylactic measure Status: Acute Attending/Attestation - Attestation I have personally seen and examined this patient.: Yes I have fully participated in the care of the patient.: Yes I have reviewed all pertinent clinical information, including history, physical exam and plan: Yes Notes (Text): Patient seen, examined, case discussed with medical laboratory technical officer. Patient seen during morning rounds. Patient is clearly frustrated that her surgery cannot happen sooner. Patient did receive replacement PICC line over ri ght upper extremity. Patient is currently due for her nurse next set of pain medications. Patient reports that she is very upset and is demanding for the surgery to happen tomorrow for otherwise she will leave AGAINST MEDICAL ADVICE. i reported to her that I do understand her frustration since she has been here since May was told that she was going to have surgery before the fever spikes. However I have also indicated to her that she needs to be on antibiotic to the fevers secondary to her bacteremia and her repeat cultures from Wednesday or showing that the infection is clearing but she will need to be on antibiotic for at least an unspecified number weeks per determination by infectious disease.. However given that patient is currently receiving IV antibiotics for bacteremia she will need to complete IV antibiotics for treatment of her bacteremia prior to or to reduce risk for peritonitis since her surgery will be quite intensive and will need the assistance of both general and bariatric surgery to reestablish gut motility. Patient is also upset in regards to being eligible to LTAC and refusing to go to LTAC. I have indicated to her that [facility] acts as a mini hospital will complete in terms of the task being completed now in hospital to help reduce her risk for infection and she would come back from the [facility] for her surgery given that the surgery team has indicated to her that she is stable from the standpoint for LTAC and can come back later for the surgery. I did indicate to her that no one is considering sending her home given her multiple medical ailments. Patient continues to be frustrated anxious and is asking for me to speak with her mother. I was overhead paged shortly after this afternoon. I did speak with patient's mother Conrad. Conrad expresses concerns in regards to daughter. She expresses concern that her daughter will AMA from the LTAC and likely in front of her granddaughter at home. I did also explain to Conrad that [facility] would add to be serving as a mini hospital and that no one is rushing to send her daughter home given that she is receiving IV antibiotics for her bacteremia and that we want her to be medically optimize for her next surgery. Conrad did indicate to me that she is concerned that the LTAC will be far away for any of the family to see her daughter and is asking terms of what options of LTAC are available. I did explain to her that would be a better question for case management who is working with patient's insurance. She also then asked me in terms of patient's eligibility for wound care, home physical therapy, and other ancillary services. I did indicate to her patient is awaiting second surgery and then these things in order to prepare her still too early to ask given that she is not medically stable to go home which is why she is recommended for LTAC given that it can accomplish many the task being completed now during hospitalization. I also did indicate to her given that she had been requesting a medical necessity note for extrarenal room to her apartment that at this point I can't determine that the patient needs an extra room or a separate room given that she is not ready to go home. Patient is currently in an isolated room in the hospital for contact for infection but that does not mean that she needs to be an isolated room at home given that she is undergoing treatment for her infection now. The patient is ambulatory at the hospital following the second surgery she may need services but it is yet to be determined. Patient's mother also reports concerns in regards to patient's dependence on the narcotics and Ativan. I did indicate to her if we stop the narcotic and Ativan cold turkey that too can be detrimental to her daughter that pain addiction is a chronic lifelong process and he takes the patient's body chemistry to adjust as she i has been dependent prior to hospitalization for chronic opioid and Ativan use. I also did indicate to her that that her daughter did knee pain medication in light of her first surgery given that it was emergent in nature and that we did taper her off it and able 6 pain to her that I did have a prior conversation during hospitalization with her daughter that we will eventually need to taper her off the pain medication in the Ativan but she is currently weaning the second surgery with a reasonable expectation of pain as well. Conrad though I think she understood also became verbally abusive at the end indicating: "The hospital is filthy and that's why she's sick. That the hospital killed her family members" etc. I was polite and asked if she had any further questions I could help her with her and she said she had no further questions with me as of this afternoon. Given mother's concerns and patient behavior we did ask psych to reevaluate patient given safety concerns. I did speak with [facility] assistant case manager following my conversation with Conrad given that patient could potentially go to LTAC who reports she could follow-up with patient's mother if she calls sixth floor to go over her benefits. I also did indicate [facility] the nature of my conversations with both the daughter and the mother which were at times quite inflammatory and to have the patient advocate come by and see her in a also did speak with soap chipper as well to see if there is anything else that we can do to help with patient. I would like to note the patient is currently receiving IV antibiotics for bacteremia and we are in preparation to medically optimize her prior to surgery. I had a conversation earlier with the surgeon about a week and a half ago that he wants to be able to do the surgery with the best outcome possible and a did indicate to that to the patient as well. The risk of infection if it does not clear could impair the outcome of her surgery. Following these conversations have had, the resident indicated to me in this afternoon patient was quite upset to have a one-to-one given that she was threatening to harm herself which was reason why a one-to-one was placed that she had a conversation again with the patient as well as patient's mother. We did re-consult psych as well. I did speak with him, Dr. Browning who is covering psych today will, to evaluate the patient see if one-to-one is necessary given the concern that why she is on one-to-one is the threatening statements in terms of harming herself and for removing her tubes. Resident has followed up with infectious disease has recommended for at least 2 weeks of IV antibiotics to cover for bacteremia as well. Patient cannot AMA. Patient is awaiting surgery for gut reconnection. Patient is strict history nothing by mouth. Patient's wound VAC in place and wound healing very very well no noted discharge and also noted over IR placed gastrostomy tube some mild leakage where she still receiving antibiotic topical ointment.
[2018-07-22] MEDS: oxyCODONE 10 mg Immediate Release Tab PO PRN ×2 (15:08→21:08)
--- NOTE | 2018-07-22 19:11 | CP.PCM.PN ---
Subjective - Date & Time of Evaluation Date of Evaluation: 07/22/18 Time of Evaluation: 15:00 - Subjective Subjective: dictated Objective - Vital Signs/Intake and Output Vital Signs (last 24 hours): Temp Pulse Resp BP Pulse Ox 98.2 F 77 20 129/89 95 07/22/18 15:29 07/22/18 15:29 07/22/18 15:29 07/22/18 15:29 07/22/18 15:29 Intake and Output: 07/22/18 07/23/18 18:59 06:59 Intake Total 400 Output Total 0 Balance 400 - Medications Medications: Current Medications Acetaminophen (Tylenol 650mg/20.3ml Solution Ud) 975 mg GT Q8H PRN PRN Reason: Pain, Mild (1-3) Last Admin: 07/19/18 23:04 Dose: 975 mg Benzocaine/Menthol (Cepacol Sore Throat) 1 sravan MT Q2H PRN PRN Reason: Sore Throat Last Admin: 07/22/18 11:22 Dose: 1 sravan Calcium Acetate (Phoslo) 667 mg GT TIDCC [facility] Last Admin: 07/22/18 18:16 Dose: 667 mg Cholestyramine Resin (Questran) 4 gm PO BID [facility] Last Admin: 07/22/18 18:16 Dose: 4 gm Ergocalciferol (Drisdol 50,000 Intl Units Cap) 1 cap PO Q7D [facility] Stop: 09/14/18 10:01 Last Admin: 07/20/18 10:33 Dose: 1 cap Escitalopram Oxalate (Lexapro) 10 mg GT DAILY [facility] Last Admin: 07/22/18 10:59 Dose: 10 mg Gentamicin Sulfate (Gentamicin 0.1%) 0 gm TOP TID [facility] Last Admin: 07/22/18 18:18 Dose: 1 applic Guaifenesin (Robitussin) 100 mg PO Q4H PRN PRN Reason: Cough Last Admin: 07/22/18 18:16 Dose: 100 mg Hydromorphone HCl (Dilaudid) 1 mg IVP Q3H PRN PRN Reason: Pain, moderate (4-7) Last Admin: 07/22/18 16:56 Dose: 1 mg Meropenem 1 gm/ Sodium (Chloride) 100 mls @ 100 mls/hr IVPB Q8H [facility]; Protocol Last Admin: 07/22/18 16:45 Dose: 100 mls/hr Micafungin Sodium 100 mg/ (Sodium Chloride) 100 mls @ 100 mls/hr IV Q24H [facility]; Protocol Last Admin: 07/21/18 22:00 Dose: 100 mls/hr Vancomycin HCl 1,000 mg/ (Sodium Chloride) 250 mls @ 166.6 mls/hr IVPB Q12H [facility]; Protocol Last Admin: 07/22/18 18:45 Dose: 166.6 mls/hr Insulin Human Regular (Novolin R) 0 unit SC ACHS [facility]; Protocol Last Admin: 07/22/18 17:30 Dose: Not Given Ipratropium [place] (Atrovent) 0.5 mg IH RQ6 [facility] Last Admin: 07/22/18 13:07 Dose: 0.5 mg Loperamide HCl (Imodium) 1 mg PO Q2H PRN PRN Reason: Diarrhea Last Admin: 07/22/18 18:16 Dose: 1 mg Loratadine (Claritin) 10 mg PO DAILY [facility] Last Admin: 07/22/18 10:58 Dose: 10 mg Lorazepam (Ativan) 1 mg IVP BID [facility] Last Admin: 07/22/18 18:16 Dose: 1 mg Metoprolol Tartrate (Lopressor) 12.5 mg PEG BID [facility] Last Admin: 07/22/18 18:17 Dose: 12.5 mg Nicotine (Nicoderm Cq) 1 patch TD DAILY [facility] Last Admin: 07/22/18 10:59 Dose: 1 patch Ondansetron HCl (Zofran Inj) 4 mg IVP Q6H PRN PRN Reason: Nausea/Vomiting Last Admin: 07/22/18 11:02 Dose: 4 mg Oxycodone HCl (Oxycodone Immediate Release Tab) 10 mg PO Q6 PRN PRN Reason: Pain, severe (8-10) Last Admin: 07/22/18 15:08 Dose: 10 mg Pantoprazole Sodium (Protonix Susp) 40 mg PO DAILY [facility] Last Admin: 07/22/18 10:58 Dose: 40 mg Saliva Substitute (Mouth Kote 236 Ml) 0 ml MM Q6 PRN PRN Reason: Dry mouth Vitamin A (Vitamin A & D Oint Ud Foilpak) 1 ea TOP Q8 PRN PRN Reason: dry lips Vitamin E (Vitamin E 400 Units Cap) 400 intlu GT DAILY [facility] Last Admin: 07/22/18 10:59 Dose: 400 intlu - Labs Labs: 07/22/18 07:00 07/22/18 07:00 PT 14.3 SECONDS (9.7-12.2) H 06/10/18 07:05 INR 1.3 06/10/18 07:05 APTT 33 SECONDS (21-34) 05/25/18 06:16
--- NOTE | 2018-07-22 22:03 | CP.PCM.PN ---
<Marti Mo - Last Filed: 07/22/18 22:15> Subjective - Date & Time of Evaluation Date of Evaluation: 07/22/18 Time of Evaluation: 14:00 - Subjective Subjective: General surgery progress note Pt was seen and examined at bedside and wound vac was changed. Pt is feeling much better since admission. She is eager to get surgery and resistent to the idea of going long-term rehabilitation facility without set surgery date.Pt re ports some persistent nausea and pain, but it well controlled on current regimen. Denies fevers. Objective - Vital Signs/Intake and Output Vital Signs (last 24 hours): Temp Pulse Resp BP Pulse Ox 98.2 F 77 20 129/89 95 07/22/18 15:29 07/22/18 15:29 07/22/18 15:29 07/22/18 15:29 07/22/18 15:29 Intake and Output: 07/22/18 07/23/18 18:59 06:59 Intake Total 400 Output Total 0 Balance 400 - Medications Medications: Current Medications Acetaminophen (Tylenol 650mg/20.3ml Solution Ud) 975 mg GT Q8H PRN PRN Reason: Pain, Mild (1-3) Last Admin: 07/19/18 23:04 Dose: 975 mg Benzocaine/Menthol (Cepacol Sore Throat) 1 sravan MT Q2H PRN PRN Reason: Sore Throat Last Admin: 07/22/18 19:14 Dose: 1 sravan Calcium Acetate (Phoslo) 667 mg GT TIDCC [facility] Last Admin: 07/22/18 18:16 Dose: 667 mg Cholestyramine Resin (Questran) 4 gm PO BID [facility] Last Admin: 07/22/18 18:16 Dose: 4 gm Ergocalciferol (Drisdol 50,000 Intl Units Cap) 1 cap PO Q7D [facility] Stop: 09/14/18 10:01 Last Admin: 07/20/18 10:33 Dose: 1 cap Escitalopram Oxalate (Lexapro) 10 mg GT DAILY [facility] Last Admin: 07/22/18 10:59 Dose: 10 mg Gentamicin Sulfate (Gentamicin 0.1%) 0 gm TOP TID [facility] Last Admin: 07/22/18 18:18 Dose: 1 applic Guaifenesin (Robitussin) 100 mg PO Q4H PRN PRN Reason: Cough Last Admin: 07/22/18 18:16 Dose: 100 mg Hydromorphone HCl (Dilaudid) 1 mg IVP Q3H PRN PRN Reason: Pain, moderate (4-7) Last Admin: 07/22/18 19:56 Dose: 1 mg Meropenem 1 gm/ Sodium (Chloride) 100 mls @ 100 mls/hr IVPB Q8H [facility]; Protocol Last Admin: 07/22/18 16:45 Dose: 100 mls/hr Micafungin Sodium 100 mg/ (Sodium Chloride) 100 mls @ 100 mls/hr IV Q24H [facility]; Protocol Last Admin: 07/21/18 22:00 Dose: 100 mls/hr Vancomycin HCl 1,000 mg/ (Sodium Chloride) 250 mls @ 166.6 mls/hr IVPB Q12H [facility]; Protocol Last Admin: 07/22/18 18:45 Dose: 166.6 mls/hr Insulin Human Regular (Novolin R) 0 unit SC ACHS [facility]; Protocol Last Admin: 07/22/18 17:30 Dose: Not Given Ipratropium [place] (Atrovent) 0.5 mg IH RQ6 [facility] Last Admin: 07/22/18 19:31 Dose: Not Given Loperamide HCl (Imodium) 1 mg PO Q2H PRN PRN Reason: Diarrhea Last Admin: 07/22/18 18:16 Dose: 1 mg Loratadine (Claritin) 10 mg PO DAILY [facility] Last Admin: 07/22/18 10:58 Dose: 10 mg Lorazepam (Ativan) 1 mg IVP BID [facility] Last Admin: 07/22/18 18:16 Dose: 1 mg Lorazepam (Ativan) 1 mg IVP ONCE ONE Stop: 07/22/18 23:01 Metoprolol Tartrate (Lopressor) 12.5 mg PEG BID [facility] Last Admin: 07/22/18 18:17 Dose: 12.5 mg Nicotine (Nicoderm Cq) 1 patch TD DAILY [facility] Last Admin: 07/22/18 10:59 Dose: 1 patch Ondansetron HCl (Zofran Inj) 4 mg IVP Q6H PRN PRN Reason: Nausea/Vomiting Last Admin: 07/22/18 11:02 Dose: 4 mg Oxycodone HCl (Oxycodone Immediate Release Tab) 10 mg PO Q6 PRN PRN Reason: Pain, severe (8-10) Last Admin: 07/22/18 21:08 Dose: 10 mg Pantoprazole Sodium (Protonix Susp) 40 mg PO DAILY [facility] Last Admin: 07/22/18 10:58 Dose: 40 mg Saliva Substitute (Mouth Kote 236 Ml) 0 ml MM Q6 PRN PRN Reason: Dry mouth Vitamin A (Vitamin A & D Oint Ud Foilpak) 1 ea TOP Q8 PRN PRN Reason: dry lips Vitamin E (Vitamin E 400 Units Cap) 400 intlu GT DAILY [facility] Last Admin: 07/22/18 10:59 Dose: 400 intlu - Labs Labs: 07/22/18 07:00 07/22/18 07:00 PT 14.3 SECONDS (9.7-12.2) H 06/10/18 07:05 INR 1.3 06/10/18 07:05 APTT 33 SECONDS (21-34) 05/25/18 06:16 - Constitutional Appears: Well, Non-toxic, No Acute Distress - Head Exam Head Exam: ATRAUMATIC, NORMOCEPHALIC - Eye Exam Eye Exam: Normal appearance. absent: Conjunctival injection, Scleral icterus - ENT Exam ENT Exam: Mucous Membranes Moist, Normal Oropharynx - Respiratory Exam Respiratory Exam: NORMAL BREATHING PATTERN. absent: Accessory Muscle Use, Respiratory Distress - Cardiovascular Exam Cardiovascular Exam: RRR - GI/Abdominal Exam GI & Abdominal Exam: Soft. absent: Distended Additional comments: midline wound is healing with good progression. Skin is intact except for small areas of discharge. - Extremities Exam Extremities Exam: absent: Calf Tenderness, Pedal Edema, Tenderness - Neurological Exam Neurological Exam: Alert, Awake, Oriented x3 - Psychiatric Exam Psychiatric exam: Agitated, Normal Affect - Skin Skin Exam: Dry, Normal Color, Warm Assessment and Plan - Assessment and Plan (Free Text) Assessment: 38F s/p exploratory laparotomies for internal hernia and intestinal resection, now in discontinuity Plan: Continue NPO Continue tube feeds Continue NGT to wall suction Continue wound vac to continuous suction, change 2x/week Further surgical planning pending optimization, adequate healing from prior surgery, and evidence of bacteremia clearance--will continue to discuss with Dr. Mccray, gastric surgeon Discussed with Dr. Cricket Mo, PGY2 <Gómez Harley - Last Filed: 08/01/18 18:14> Objective - Vital Signs/Intake and Output Vital Signs (last 24 hours): Temp Pulse Resp BP Pulse Ox 99.2 F 69 20 72/43 L 92 L 07/29/18 23:20 07/29/18 23:20 07/29/18 23:20 07/29/18 23:20 07/29/18 23:20 - Labs Labs: 07/30/18 04:14 07/30/18 04:14 PT 14.3 SECONDS (9.7-12.2) H 06/10/18 07:05 INR 1.3 06/10/18 07:05 APTT 33 SECONDS (21-34) 05/25/18 06:16 Attending/Attestation - Attestation I have fully participated in the care of the patient.: Yes I have reviewed all pertinent clinical information, including history, physical exam and plan: Yes Notes (Text): Pt stable clinically Awaiting bariatric surgeon in put Possible OR on last week of July C.w current mx get prealbumin Plan d.w pt in detail
--- NOTE | 2018-07-22 22:04 | PN ---
DATE: 07/22/2018 SUBJECTIVE: The patient is afebrile. She is saying she wants the surgery done. Her last blood culture was on , which was positive, so I planned to give her antibiotics for two weeks for that Enterococcus. She got 5 days worth of treatment. She at least needs 7 days more of vancomycin. She is also on medications which are Mycamine and Merrem at this time because of the wound infection. PHYSICAL EXAMINATION: VITAL SIGNS: Her vitals are stable. She got a new PICC line. LUNGS: Clear. HEART: S1, S2 are regular. ABDOMEN: Has abdominal wound vac. Also has a jejunostomy tube. EXTREMITIES: Remain without any edema. ASSESSMENT AND PLAN: She is demanding to get a surgery done, but she needs weeks' worth of antibiotics, so we will follow. I told the resident to resume the vancomycin as it yesterday. Guero Rivera MD
[2018-07-22] MEDS: Micafungin 100 MG in Sodium Chloride 0.9% 100 ML IV SCH (22:56)
[2018-07-23] MEDS: Meropenem 1 GM in Sodium Chloride 0.9% 100 ML IVPB SCH ×3 (00:26→16:01)
[2018-07-23] MEDS: HYDROmorphone 1 mg/ml ISec IVP PRN ×8 (01:22→22:43)
[2018-07-23] MEDS: Ipratropium 0.02% Inhal Soln (0.5 mg/2.5 ml) UD IH SCH ×4 (01:26→19:12)
[2018-07-23] MEDS ORDERED: Dextrose 50% SYRINGE Inj (50 ml) IV PRN (01:56)
[2018-07-23] MEDS ORDERED: Glucagon Recombinant 1 mg Inj IM PRN (01:56)
[2018-07-23] MEDS ORDERED: Dextrose 50% SYRINGE Inj (50 ml) IV STA (01:57)
[2018-07-23] MEDS: oxyCODONE 10 mg Immediate Release Tab PO PRN ×3 (02:38→17:48)
--- NOTE | 2018-07-23 03:20 | CP.PCM.PN ---
<Jose Angel Cornelius - Last Filed: 07/23/18 07:48> Subjective - Date & Time of Evaluation Date of Evaluation: 07/23/18 Time of Evaluation: 07:49 - Subjective Subjective: Jose Angel Cornelius PGY-1, Medicine progress note Pt was seen and examined at bedside. Overnight, pt noted to be hypoglycemic, but asymptomatic, treated with 1/2 amp of D50 with repeat blood sugar being normoglycemic. Pt has no new complaints at this time. Pt still reports diffuse abdominal pain. Pt denies fever, chills, dizziness, headache, chest pain, dyspnea, changes in abdominal pain, n/v/d, homicidal ideations. Pt is walking around the hospital, without problems. Objective - Vital Signs/Intake and Output Vital Signs (last 24 hours): Temp Pulse Resp BP Pulse Ox 98.2 F 92 H 20 102/67 95 07/22/18 23:25 07/23/18 02:37 07/22/18 23:25 07/23/18 02:37 07/22/18 23:25 Intake and Output: 07/22/18 07/23/18 18:59 06:59 Intake Total 400 Output Total 0 Balance 400 - Medications Medications: Current Medications Acetaminophen (Tylenol 650mg/20.3ml Solution Ud) 975 mg GT Q8H PRN PRN Reason: Pain, Mild (1-3) Last Admin: 07/19/18 23:04 Dose: 975 mg Benzocaine/Menthol (Cepacol Sore Throat) 1 sravan MT Q2H PRN PRN Reason: Sore Throat Last Admin: 07/22/18 19:14 Dose: 1 sravan Calcium Acetate (Phoslo) 667 mg GT TIDCC [facility] Last Admin: 07/22/18 18:16 Dose: 667 mg Cholestyramine Resin (Questran) 4 gm PO BID [facility] Last Admin: 07/22/18 18:16 Dose: 4 gm Dextrose (Dextrose 50% Inj) 0 ml IV STAT PRN; Protocol PRN Reason: Hypoglycemia Protocol Ergocalciferol (Drisdol 50,000 Intl Units Cap) 1 cap PO Q7D [facility] Stop: 09/14/18 10:01 Last Admin: 07/20/18 10:33 Dose: 1 cap Escitalopram Oxalate (Lexapro) 10 mg GT DAILY [facility] Last Admin: 07/22/18 10:59 Dose: 10 mg Gentamicin Sulfate (Gentamicin 0.1%) 0 gm TOP TID [facility] Last Admin: 07/22/18 18:18 Dose: 1 applic Glucagon (Glucagen Diagnostic Kit) 0 mg IM STAT PRN; Protocol PRN Reason: Hypoglycemia Protocol Guaifenesin (Robitussin) 100 mg PO Q4H PRN PRN Reason: Cough Last Admin: 07/22/18 18:16 Dose: 100 mg Hydromorphone HCl (Dilaudid) 1 mg IVP Q3H PRN PRN Reason: Pain, moderate (4-7) Last Admin: 07/23/18 01:22 Dose: 1 mg Meropenem 1 gm/ Sodium (Chloride) 100 mls @ 100 mls/hr IVPB Q8H [facility]; Protocol Last Admin: 07/23/18 00:26 Dose: 100 mls/hr Micafungin Sodium 100 mg/ (Sodium Chloride) 100 mls @ 100 mls/hr IV Q24H [facility]; Protocol Last Admin: 07/22/18 22:56 Dose: 100 mls/hr Vancomycin HCl 1,000 mg/ (Sodium Chloride) 250 mls @ 166.6 mls/hr IVPB Q12H [facility]; Protocol Last Admin: 07/22/18 18:45 Dose: 166.6 mls/hr Dextrose (Dextrose 5% In Water 1000 Ml) 1,000 mls @ 0 mls/hr IV .Q0M PRN; Protocol PRN Reason: Hypoglycemia Protocol Insulin Human Regular (Novolin R) 0 unit SC ACHS [facility]; Protocol Last Admin: 07/22/18 22:09 Dose: Not Given Ipratropium [place] (Atrovent) 0.5 mg IH RQ6 [facility] Last Admin: 07/23/18 01:26 Dose: 0.5 mg Loperamide HCl (Imodium) 1 mg PO Q2H PRN PRN Reason: Diarrhea Last Admin: 07/22/18 18:16 Dose: 1 mg Loratadine (Claritin) 10 mg PO DAILY [facility] Last Admin: 07/22/18 10:58 Dose: 10 mg Lorazepam (Ativan) 1 mg IVP BID [facility] Last Admin: 07/22/18 18:16 Dose: 1 mg Metoprolol Tartrate (Lopressor) 12.5 mg PEG BID [facility] Last Admin: 07/22/18 18:17 Dose: 12.5 mg Nicotine (Nicoderm Cq) 1 patch TD DAILY [facility] Last Admin: 07/22/18 10:59 Dose: 1 patch Ondansetron HCl (Zofran Inj) 4 mg IVP Q6H PRN PRN Reason: Nausea/Vomiting Last Admin: 07/22/18 11:02 Dose: 4 mg Oxycodone HCl (Oxycodone Immediate Release Tab) 10 mg PO Q6 PRN PRN Reason: Pain, severe (8-10) Last Admin: 07/23/18 02:38 Dose: 10 mg Pantoprazole Sodium (Protonix Susp) 40 mg PO DAILY [facility] Last Admin: 07/22/18 10:58 Dose: 40 mg Saliva Substitute (Mouth Kote 236 Ml) 0 ml MM Q6 PRN PRN Reason: Dry mouth Vitamin A (Vitamin A & D Oint Ud Foilpak) 1 ea TOP Q8 PRN PRN Reason: dry lips Vitamin E (Vitamin E 400 Units Cap) 400 intlu GT DAILY [facility] Last Admin: 07/22/18 10:59 Dose: 400 intlu - Labs Labs: 07/22/18 07:00 07/22/18 07:00 PT 14.3 SECONDS (9.7-12.2) H 06/10/18 07:05 INR 1.3 06/10/18 07:05 APTT 33 SECONDS (21-34) 05/25/18 06:16 - Head Exam Head Exam: ATRAUMATIC, NORMAL INSPECTION - Eye Exam Eye Exam: EOMI, Normal appearance - ENT Exam ENT Exam: Mucous Membranes Moist Additional comments: (+) NGT in place, on int suction with clear fluid in container - Neck Exam Neck Exam: Full ROM, Normal Inspection - Respiratory Exam Respiratory Exam: Clear to Ausculation Bilateral. absent: Decreased Breath Sounds, Rhonchi, Wheezes, Respiratory Distress - Cardiovascular Exam Cardiovascular Exam: REGULAR RHYTHM, +S1, +S2 - GI/Abdominal Exam GI & Abdominal Exam: Soft, Tenderness (mild diffuse abdominal tenderness), Normal Bowel Sounds. absent: Distended, Firm, Guarding, Rigid, Rebound Additional comments: (+) abdominal wound vac with gastrostomy tube; C/D/I, no erythema, bleeding or swelling. - Extremities Exam Extremities Exam: Normal Capillary Refill, Normal Inspection. absent: Calf Tenderness, Pedal Edema, Tenderness - Back Exam Back Exam: NORMAL INSPECTION - Neurological Exam Neurological Exam: Alert, Awake - Psychiatric Exam Psychiatric exam: Normal Affect, Normal Mood. absent: Suicidal Ideation - Skin Skin Exam: Dry, Normal Color, Warm Assessment and Plan - Assessment and Plan (Free Text) Assessment: Ischemic bowel disease 2/2 internal hernia producing bowel obstruction Current drains include: NGT (intermittent suction per surgery recs) replaced on 07/09/18 by surgery team, gastrostomy tube (replaced 06/10/18) Latest wound cultures: -Abd incision, Peg incision site => Pseudomonas aeruginosa, sensitive to Meropenem -Per ID: Meropenem 1 g q 8 h (d/c 07/11; restarted 07/12), Vancomycin 1.5 g IVPB q 12 h (d/c on 07/05/18; restarted Vanco 1 g q 12h on 07/16) -vanco trough 07/05 -- 15.1 -Repeat abd wound cx 07/12 growing Pseudomonas and Chula Lusitaniae Surgery (Dr. Harley) consulted - awaiting Dr Mccray's response on surgical intervention; f/u with surgical team regarding dispo => per surgery pt cleared to go to LTACH facility and have reversal procedure done electively; waiting to hear from surgery regarding time and date for scheduled procedure Wound vac to continuous suction, to be replaced Q72hrs Heme/onc (Dr. Cash) consulted for Fe status - repeat ferritin 185, no need for iron infusion at this time, continue to monitor Other cultures: 06/22/18: abd incision => Pseudomonas aeruginosa sensitive to Meropenem 06/22/18: Peg site => Pseudomonas aeruginosa sensitive to Meropenem 05/14/18: Peritoneal fluid => Pseudomonas aeruginosa sensitive to Meropenem 05/23/18: Wound cx => Chula albicans 05/15/18, 05/22/18: Blood cx => no growth 05/22/18: Urine cx => no growth 05/31/18: Incision site => Enterococcus faecalis, Acinetobacter baumannii 06/03/18: Stool cxs => No Salmonella, Shigella, or Campylobacter isolates 06/13/18: Repeat wound cx => Coag-neg Staph, Enterococcus raffinosus 07/12/18 Repeat wound cx growing Pseudomonas and Chula Lusitaniae 07/14/18 repeat blood cxs NG 07/15/18 repeat blood cxs through central line NG 07/15/18 Sputum cx no growth 07/15/18 Urine cx no growth 07/16/18 blood culture x2 via PICC line grew E. faecalis sensitive to vancomycin -Echocardiogram (07/18) shows EF approximately 56%, AV mildly thickened, MV moderately thickened. No vegetation. 07/18/18: NG for 5 days. Final. Antibiotics: Continue Meropenem 1 g q 8 h IVPB ; restarted as per ID due to pos abd wound cx (07/12) Vancomycin 1 g IV q 12 h started 07/16 Cipro 400 mg IV q 12h d/c'd (started 06/02/18, last day 06/16/18) Flagyl 500 mg IVPB q 8 h completed (active from 05/15/18-06/19/18) Micafungin 100mg IV Q24hrs Continue Gentamicin 0.1% TOP TID apply cream to peg tube site F/u vitamin levels and replace as needed: Vit D < 12.8, 95889 U q1 wk x 8 wks B12 707, wnl; repeat B12 508 Folate 12.6, wnl Vit A 42, wnl Alpha vit E 5.6, wnl Zinc level wnl Vit A, B1, B6, E levels reordered on 06/15 Vit B1: inappropriately submitted, 06/01/18 valve acceptable Vit B6: 5.9, wnl Vit A, E collected Repeat Vitamin levels ordered on 07/08, f/u results 07/08: Pre-albumin 11.6, B12 508, 25-OH vit D < 12.8, vit A 33, vit E wnl As per before school babysitter recs on 07/15, feeds changed to Jevity 1.5 with goal rate 50 mL C/w Tylenol 975 mg liquid q 8h, Dilaudid 1 mg q 3 h prn, Zofran 4 mg IV q 6 h prn; Oxycodone IR 10 mg q6h prn Fever, possible sepsis - Afebrile - abdominal wound culture shows chula and pseudomonas - chest x ray - lungs clear to auscultation b/l, no acute findings - Repeat portable chest x ray 07/18 - in situ NGT, the tip of which overlies the lower mediastinum and must be advanced. no acute infiltrates. - PICC Line removed(07/17) - catheter tip culture is negative for growth - New PICC line placed by IR (Dr. Peraza) on 07/22/18 - f/u sputum cultures - normal renetta - Urine culture - no growth, final - WBC 07/22 - 6.7 -F/u Bl Doppler to rule out DVT - no DVT bilaterally -VBG/lactate level - ph: 7.45, pCO2: 39, lactate 0.9 - Normal saline @ 100mls/hr - continue tylenol for fevers -abx: Meropenem 1 g q 8 h IVPB, Vancomycin 1 g IV q 12 h - random vanc is 11.2 - blood culture through picc line grew E. faecalis sensitive to vancomycin -continue with current abx as per ID Tachycardia, persistent, hx into 110s-130s - possible etiologies include pain, infection, anxiety Today HR - 80, continue to monitor and trend Ativan prn, Dilaudid prn C/w metoprolol tartrate 12.5 mg bid via PEG tube Diarrhea- suspect 2/2 PO intake by patient C. Diff (05/22, 05/24, 05/28, 07/17) neg Stool ova and parasites (05/25/18) neg Stool leukocytes (05/25/18) neg Imodium 1 mg PO q 2h prn Anxiety Director Of Labor Relations consulted - pt refusing at this time Psych consulted (Dr. Reyez) - managing Ativan, c/w prn Lexapro 10 mg GT daily (started 05/31) Insomnia - Benadryl d/c'd, clinically not indicated Anemia, acute, stable, pt denies blood in stool Total 2 PRBC (on 05/16) and 4 FFP (on 05/15 and 05/16) H/H is stable Iron 16, TIBC 205, % sat 4.7, repeat ferritin 185 after Ferrlecit Monitor CBC q2d Per Dr. Cash, consider Procrit supplementation in attempt to avoid further transfusions if Hgb < 9; transfuse prn Thrombocytosis - suspect reactive to pain, surgery; resolved 07/23 platelets: 450 DM2, controlled From prior note: admittedly non-compliant, has not taken Januvia for 1 y Accuchecks q6h Hypoglycemic protocol ISS regular HgbA1c 5.8 Hx gastric bypass surgery 07/23, pt had hypoglycemic event overnight (asymptomatic), treated with 1/2 amp D50. Resolved Hypercholesterolemia, untx LDL < 30, HDL < 23, Chol 59, TG 195 (06/03/18) Hx gastric bypass surgery Questran 4 g PO bid via PEG tube Hx HTN, controlled Metoprolol 12.5 mg bid via PEG tube Hx Asthma - Chronic Continue to monitor Atrovent prn Continue Robitussin prn Continue Claritin 10 daily for allergy sxs Nicotine use disorder - Chronic From prior note: 1 ppd x 20 y, 1/2 ppd x 3 y C/w Nicoderm patch Electrolyte imbalance - Hypokalemia, Hypomagnesemia, resolved continue to monitor and replete as needed PPX, Diet, Dispo Hydrocortisone 1% cream top tid for R upper inner arm macular rash - improved Vitamin A+D top q 8h prn for dry lips Saliva substitute q 6 h prn for dry mouth IVF not indicated at this time VTE ppx: Lovenox 40 subQ d, SCDs, encourage ambulation GI ppx: Protonix 40 mg IV bid, Florastor bid Code status: Full code Continue PT services, follow up recs Dispo: Continue to optimize patient for reversal surgery. Dr. Harley to coordinate with Dr. Mccray plan for intervention. Per discussion with Assistant Toddler Teacher, pt acquired insurance. Surgery cleared patient to go to LTACH facility and have reversal procedure done electively. Spoke with surgery team today, awaiting information regarding scheduled date and time for elective reversal procedure. Awaiting official facility for LTACH as per Case Management. Case discussed with attending physician <Doretha Turk V - Last Filed: 07/23/18 16:20> Objective - Vital Signs/Intake and Output Vital Signs (last 24 hours): Temp Pulse Resp BP Pulse Ox 98.3 F 79 20 113/77 98 07/23/18 07:30 07/23/18 07:30 07/23/18 07:30 07/23/18 07:30 07/23/18 07:30 Intake and Output: 07/23/18 07/23/18 06:59 18:59 Output Total 25 Balance -25 - Medications Medications: Current Medications Acetaminophen (Tylenol 650mg/20.3ml Solution Ud) 975 mg GT Q8H PRN PRN Reason: Pain, Mild (1-3) Last Admin: 07/19/18 23:04 Dose: 975 mg Benzocaine/Menthol (Cepacol Sore Throat) 1 sravan MT Q2H PRN PRN Reason: Sore Throat Last Admin: 07/23/18 10:30 Dose: 1 sravan Calcium Acetate (Phoslo) 667 mg GT TIDCC [facility] Last Admin: 07/23/18 10:28 Dose: 667 mg Cholestyramine Resin (Questran) 4 gm PO BID [facility] Last Admin: 07/23/18 10:26 Dose: 4 gm Dextrose (Dextrose 50% Inj) 0 ml IV STAT PRN; Protocol PRN Reason: Hypoglycemia Protocol Ergocalciferol (Drisdol 50,000 Intl Units Cap) 1 cap PO Q7D [facility] Stop: 09/14/18 10:01 Last Admin: 07/20/18 10:33 Dose: 1 cap Escitalopram Oxalate (Lexapro) 10 mg GT DAILY [facility] Last Admin: 07/23/18 10:28 Dose: 10 mg Gentamicin Sulfate (Gentamicin 0.1%) 0 gm TOP TID [facility] Last Admin: 07/23/18 10:50 Dose: 1 applic Glucagon (Glucagen Diagnostic Kit) 0 mg IM STAT PRN; Protocol PRN Reason: Hypoglycemia Protocol Guaifenesin (Robitussin) 100 mg PO Q4H PRN PRN Reason: Cough Last Admin: 07/23/18 10:27 Dose: 100 mg Hydromorphone HCl (Dilaudid) 1 mg IVP Q3H PRN PRN Reason: Pain, moderate (4-7) Last Admin: 07/23/18 13:31 Dose: 1 mg Meropenem 1 gm/ Sodium (Chloride) 100 mls @ 100 mls/hr IVPB Q8H [facility]; Protocol Last Admin: 07/23/18 07:09 Dose: 100 mls/hr Micafungin Sodium 100 mg/ (Sodium Chloride) 100 mls @ 100 mls/hr IV Q24H [facility]; Protocol Last Admin: 07/22/18 22:56 Dose: 100 mls/hr Vancomycin HCl 1,000 mg/ (Sodium Chloride) 250 mls @ 166.6 mls/hr IVPB Q12H [facility]; Protocol Last Admin: 07/23/18 04:20 Dose: 166.6 mls/hr Dextrose (Dextrose 5% In Water 1000 Ml) 1,000 mls @ 0 mls/hr IV .Q0M PRN; Protocol PRN Reason: Hypoglycemia Protocol Insulin Human Regular (Novolin R) 0 unit SC ACHS [facility]; Protocol Last Admin: 07/23/18 11:38 Dose: Not Given Ipratropium [place] (Atrovent) 0.5 mg IH RQ6 [facility] Last Admin: 07/23/18 13:17 Dose: 0.5 mg Loperamide HCl (Imodium) 1 mg PO Q2H PRN PRN Reason: Diarrhea Last Admin: 07/23/18 10:27 Dose: 1 mg Loratadine (Claritin) 10 mg PO DAILY [facility] Last Admin: 07/23/18 10:28 Dose: 10 mg Lorazepam (Ativan) 1 mg IVP BID [facility] Last Admin: 07/23/18 10:27 Dose: 1 mg Metoprolol Tartrate (Lopressor) 12.5 mg PEG BID [facility] Last Admin: 07/22/18 18:17 Dose: 12.5 mg Nicotine (Nicoderm Cq) 1 patch TD DAILY [facility] Last Admin: 07/23/18 10:27 Dose: 1 patch Ondansetron HCl (Zofran Inj) 4 mg IVP Q6H PRN PRN Reason: Nausea/Vomiting Last Admin: 07/23/18 10:53 Dose: 4 mg Oxycodone HCl (Oxycodone Immediate Release Tab) 10 mg PO Q6 PRN PRN Reason: Pain, severe (8-10) Last Admin: 07/23/18 11:37 Dose: 10 mg Pantoprazole Sodium (Protonix Susp) 40 mg PO DAILY [facility] Last Admin: 07/23/18 10:27 Dose: 40 mg Saliva Substitute (Mouth Kote 236 Ml) 0 ml MM Q6 PRN PRN Reason: Dry mouth Vitamin A (Vitamin A & D Oint Ud Foilpak) 1 ea TOP Q8 PRN PRN Reason: dry lips Vitamin E (Vitamin E 400 Units Cap) 400 intlu GT DAILY [facility] Last Admin: 07/23/18 10:27 Dose: 400 intlu - Labs Labs: 07/23/18 07:29 07/23/18 07:29 PT 14.3 SECONDS (9.7-12.2) H 06/10/18 07:05 INR 1.3 06/10/18 07:05 APTT 33 SECONDS (21-34) 05/25/18 06:16 Assessment and Plan (1) Ischemic bowel disease Status: Acute (2) Obesity (BMI 30-39.9) Status: Acute (3) Small bowel obstruction Status: Acute (4) Prophylactic measure Status: Acute Attending/Attestation - Attestation I have personally seen and examined this patient.: Yes I have fully participated in the care of the patient.: Yes I have reviewed all pertinent clinical information, including history, physical exam and plan: Yes Notes (Text): Patient seen, examined, case discussed with clinical medical transcriptionist. Patient seen at bedside accompanied by her nurse Aurora. Patient last night was seen by psych one-to-one was discontinue as per psych recommendation. Patient appears woo and still frustrated that her surgery has not happened to her wishes. I did kindly explained to her again that she is on IV antibiotic treatment for bacteremia he would want to reduce any risk of infection prior to her future surgery. Patient refuses to go to LTAC I did describe to the LTAC when asked as many hospital submitted the functions are being performed at the hospitalization at this time. Until she is ready for surgery. Patient reports that she still does not want to go that it's quite far away from her family and that they will not,. I did indicate to her did speak with no cold to supportive employment case manager yesterday and that he would act to provide transportation for the family 2 to the facility but patient did not want to hear that responded to adamantly refuses to go to LTAC. I also did kindly explained to her again that although she is frustrated the optimal goal is to be able to perform the surgery without risk of infection for her to have the best outcome. Patient's repeat cultures from Wednesday showed that no growth for 5 days 2. Medications were renewed prior to expiration. Patchy did speak with Dr. Harley as well given the circumstances from yesterday. He is waiting for final confirmation from Dr. Mccray for surgery to reestablish GI motilityand he himself will tell the patient whenever he receives his state in regards to the future surgery. I did indicate to him that patient does refuse LTAC and that spoken with both the patient and mother yesterday as well. Assessment/Plan (1) Ischemic bowel disease Assessment & Plan: * Dr. Harley (surgery) on the case-->help appreciated * Preoperative/intraoperative/postoperative management per surgery * Following Bariatric surgeon (Dr. Mccray) to determine reversal bariatric surgery * Continue wound vac change per surgery * Continue tube feeds for nutrition * Continue NGT to intermittent suction * Continue antibiotics, PRN pain medications * Dr. Alvarado (GI) on the case-->help appreciated * Dr. Rivera (ID) on the case-->help appreciated * Brief summary of: * Patient has had 2 bloody bowel movements started 05/14/18. Patient's rectal: blood. She had reported abdominal pain has worsening since night of admission. Patient required emergent surgical intervention on 05/14/18 and transferred to ICU. Per operative note (05/14/18): Diagnostic laparoscopy, Exploratory laparotomy, Reduction of internal hernia, Lysis of adhesions, Drainage of abdominal collections, temporary abdominal closure, EGD * Ischemia of yenni limb, internal hernia. [place] drain stitched to distal common limb * Patient underwent surgery again on 05/16/18.Re-exploration, Small bowel resection of ileum, small bowel resection of Yenni limb with gastrojejunostomy, reversal of bypass, primary anastomosis of ileum-ileum, ileum-ileum, and ileum-jejunum, Gastrostomy tube in bypassed stomach, EGD. Patient extubated 05/16/18. Patient is pending surgery intervention to restore GI motility. prior conversation discussed with Dr. Harley who will followup with Dr. Mccray by and give this month Measure vitamin levels and replace as needed * Vit D <12.8- vit D 50,000 units q1wk; patient has completed 8 weeks of vitamin D supplementation. We'll continue vitamin D supplementation * Prealbumin 18.1 * Folate 12.6 * Vitamin A: 42: 39; 33 * Vitamin B12: 797, 707, 508 * Vitamin C: 0.8 * Vitamin E: 5.6 (low)--> patient has been on vitamin E supplementation since 06/12/2018. Vitamin E levels repeated were normal. Vitamin E 11.7 and 13.2 * Vitamin B6: 11.1 (normal) and Vitamin B1: 93 (from 06/01/18) * Drains included: NGT Tube in place replaced jul 09, gastrostomy tube, left min removed 05/25/18; right min was removed 05/23/18; no ojeda; wound vac on board; new PICC line 07/22 * IV abx: * Meropenem 1 g IV piggyback every 8hours active since 07/14/2018 * vancomycin 1 g IV piggyback every 12 hours--> patient to finish her vancomycin on July 27 per infectious disease * Micafungin 100 mg IV Q24H (active since 07/14/18) * Cultures: * Blood cultures from July 16 show Enterococcus faecalis 2 * Blood cultures from July 18 show no growth after 5 days 2 * Catheter tip shows no growth * Blood cultures from 07/14/2018 no growth for 3 days * Blood cultures from 07/15/2018 via PICC line no growth * Sputum culture no growth * Urine culture no growth * Patient remained C. difficile 4 negative * PRNS: * Tylenol 975 mg liq q8hrs * Dilaudid 1.5 mg IV q3hrs PRN-->Dilaudid 1mg IV Q3H PRN * Zofran 4mg IV q6hrs PRN * Ativan 1mg IV BID anxiety-->per psych * Diarrhea * Patient is Questran 4gm PO BID Status: Acute (2) Small bowel obstruction Assessment & Plan: * Secondary to hernia * Further details noted in #1 Status: Acute (3) Obesity (BMI 30-39.9) Assessment & Plan: * s/p gastric bypass surgery in 2013 * Operative note (2013): Yenni-en-Y gastric bypass surgery * Given nature of ischemic bowel affecting portioning of the gastric limb, she will need to wait until nutritional status is optimized per surgery Status: Acute (4) Status post gastric bypass for obesity Assessment & Plan: * status post gastric bypass 2013 * Operative note (2013): Yenni-en-Y gastric bypass surgery * Patient noncomplaint with following up postoperative. Status: Acute (5) History of Asthma Assessment & Plan: * Patient not in acute exacerbation prior to OR * Atrovent Q6H (6) Diabetes Mellitus (Type 2); controlled Assessment & Plan: * From prior note: * Admittedly non-compliant - has not taken Januvia for one year * Accuchecks Q6H * Hypoglycemic protocol * HbA1c - 6.3 (03/10/17) * hgba1c: 5.8 * History of gastric bypass surgery (8) Hx of HTN (hypertension) Assessment & Plan: * Since Gastric Bypass has not taken meds (9) Hx of Hypothyroid Assessment & Plan: * From prior note: * Pt admits non-compliance (10) Hypercholesterolemia Assessment & Plan: * From prior note: * Pt not taking meds * LDL 138, HDL 67, Tchol 220, Trig 112 * History of gastric bypass surgery (11) Anxiety Assessment & Plan: * Psychiatry (Dr. 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 Assessment & Plan: * 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 and from my prior note from last hospitalization (13) Smoker Assessment & Plan: * From my prior note: 1ppd x 20 yrs, 1/2 ppd x 3 yrs * Nicoderm 1 patch TD patchy (14) Tachycardia Assessment & Plan: * Lopressor 12.5mg PO BID * Tachycardia has normalized (15) Prophylactic measure Assessment & Plan: * Bacid Acidophilus 1 cap PEG BID * Lovenox 40mg subqdaily for DVT ppx * PICC line 06/01/18: removed 07/17/2018: Replaced 07/22/2018 * protonix 40mg IV Qdaily * Vitamin A&D ointment 1 each top Q8H * NGT Tube replaced 07/09/2018 * IR exchange of Ojeda to 24 surinamese gauge 06/10/18 * Wound vac * Dressing changed per surgery * Feed orders: * Patient is currently on Jevity. Status: Acute Disposition: Awaiting coordination from surgery and bariatric surgery for reversal since there is GI dysmotility. Patient is on vancomycin and meropenem foror bacteremia suspected secondary to PICC line. P blood culture show clearance of infection. Patient has been without fever since July 17. Patient is refusing LTAC. Patient is anxious and would like surgery. Have come explained to her and her mother in prior visits that the surgeon tends to do reversal surgery however now in light of an acute infection. I have spoken with surgery today awaiting final confirmation date as patient is being treated for bacteremia.
[2018-07-23 07:47] LABS: BASO % 0.5 % (0.0-2.0); EOS # 0.9 K/uL (0.0-0.7); EOS % 12.3 % (0.0-4.0); HEMOGLOBIN 9.7 g/dL (11.0-16.0); LYMPH # 2.8 K/uL (1.0-4.3); LYMPH % 37.2 % (20.0-40.0); MEAN CORPUSCULAR HEMOGLOBIN 28.3 pg (27.0-31.0); MEAN CORPUSCULAR HGB CONC 32.5 g/dL (33.0-37.0); MONO # 0.4 K/uL (0.0-0.8); MONO % 5.6 % (0.0-10.0); NEUT # 3.3 K/uL (1.8-7.0); NEUT % 44.4 % (50.0-75.0); RBC 3.42 Mil/uL (3.80-5.20); RED CELL DISTRIBUTION WIDTH 17.9 % (11.5-14.5); WHITE BLOOD COUNT 7.5 K/uL (4.8-10.8)
[2018-07-23] MEDS: (Novolin R) Insulin Human Regular 100 units/ml vial SC SCH ×4 (07:55→21:55)
[2018-07-23 08:14] LABS: ALBUMIN 2.9 g/dL (3.5-5.0); ALT/SGPT 18 U/L (9-52); AST/SGOT 21 U/L (14-36); BLOOD UREA NITROGEN 10 mg/dL (7-17); CALCIUM 8.4 mg/dl (8.6-10.4); GFR NON-AFRICAN AMERICAN > 60
[2018-07-23] MEDS: Cholestyramine 4 gm/Pkt UD PO SCH ×2 (10:26→18:44)
[2018-07-23] MEDS: Pantoprazole 40 mg Susp UD PO SCH (10:27)
[2018-07-23] MEDS: guaiFENesin 100 mg/5 ml Syrup UD PO PRN ×2 (10:27→17:52)
[2018-07-23] MEDS: Loperamide Hydrochloride 1 mg/5 ml Cup PO PRN ×2 (10:27→17:53)
[2018-07-23] MEDS: Benzocaine/Menthol (Cepacol) Lozenge MT PRN (10:30)
[2018-07-23] MEDS: GENTAMICIN 0.1% TOP SCH ×2 (10:50→18:43)
--- NOTE | 2018-07-23 16:15 | PCM.PYCHPN ---
Psychiatric Progress Note - Psychiatric Progress Note Patient seen today, length of contact: 15 min Patient Chief Complaint: If they will not do my surgery, I will leave AMA. Problems Identified/Issues Discussed: Patient seen, chart reviewed, case discussed with the staff. Issues related to illness and treatment were discussed with the patient and staff. According to staff, before patient said that she will kill herself, she was on one-to-one observation for safety. Psych evaluation was requested. Patient reported that she was misunderstood. According to patient she said that she will leave against AMA and will not worry about the consequences of leaving a gainst AMA. Reported compliant with treatment with no adverse effects. Tolerating treatment very well. Patient reported feeling depressed and anxious, decreased sleep, worried about her transferred to LTAC and calling her back for surgery. Patient also threatened that if they do not do her surgery now she would leave AMA. Patient knows the consequences of leaving against AMA. Discussed with patient about going to LTAC and coming back for surgery later when suitable. Patient refused. Patient also requesting to increase the dose of Ativan frequently. Patient reported decreased sleep. Sleep hygiene discussed with the patient. We will start trazodone 50 mg at bedtime. Patient understood and agreed with the above. Patient was awake, alert and oriented x3. Calm and cooperative. Mood was depressed. Affect appropriate. Denied any delusions, auditory or visual hallucinations, suicidal ideations or homicidal ideations at the time of evaluation. Will remove 1-1 precaution as patient is not suicidal. With increased dose of Lexapro to 20 mg. Patient agreed. Medical Problems: Hypertension Diabetes mellitus Asthma Diagnostic Results: Reviewed DSM 5 Symptoms Update: Some improvement with treatment Medication Change: Yes (Lexapro increased to 20 mg, started trazodone 50 mg at bedtime) Medical Record Reviewed: Yes Consults ordered or reviewed: Reviewed Mental Status Examination - Cognitive Function Orientation: Person, Place, Situation, Time Memory: Intact Attention: WNL Concentration: WNL Association: WNL Fund of Knowledge: [facility] Decription of patient's judgement and insights: Fair - Mood Mood: Depressed - Affect Affect: Depressed - Speech Speech: Appropriate - Formal Thought Process Formal Thought Process: No Impairment Psychotic Thoughts and Behaviors: None - Suicidal Ideation Suicidal Ideation: No - Homicidal Ideation Homicidal Ideation: No Goal/Treatment Plan - Goal/Treatment Plan Need for Continued Stay: Remain at risks for inpatient hospitalization, Discharge may exacerbated symptoms, Severe functional impairment Progress Toward Problem(s) and Goals/Treatment Plan: Patient/staff education. Supportive therapy. Will increase the dose of Lexapro to 20 mg. We will start trazodone 50 mg at bedtime. Continue rest of the treatment as before. - Smoking Cessation Smoking Cessation Initiated: Yes
--- NOTE | 2018-07-23 19:04 | CP.PCM.PN ---
Subjective - Date & Time of Evaluation Date of Evaluation: 07/23/18 Time of Evaluation: 15:20 - Subjective Subjective: dictated Objective - Vital Signs/Intake and Output Vital Signs (last 24 hours): Temp Pulse Resp BP Pulse Ox 99.0 F 95 H 20 129/90 96 07/23/18 15:10 07/23/18 15:10 07/23/18 15:10 07/23/18 15:10 07/23/18 15:10 - Medications Medications: Current Medications Acetaminophen (Tylenol 650mg/20.3ml Solution Ud) 975 mg GT Q8H PRN PRN Reason: Pain, Mild (1-3) Last Admin: 07/19/18 23:04 Dose: 975 mg Benzocaine/Menthol (Cepacol Sore Throat) 1 sravan MT Q2H PRN PRN Reason: Sore Throat Last Admin: 07/23/18 10:30 Dose: 1 sravan Calcium Acetate (Phoslo) 667 mg GT TIDCC [facility] Last Admin: 07/23/18 17:50 Dose: 667 mg Cholestyramine Resin (Questran) 4 gm PO BID [facility] Last Admin: 07/23/18 18:44 Dose: 4 gm Dextrose (Dextrose 50% Inj) 0 ml IV STAT PRN; Protocol PRN Reason: Hypoglycemia Protocol Ergocalciferol (Drisdol 50,000 Intl Units Cap) 1 cap PO Q7D [facility] Stop: 09/14/18 10:01 Last Admin: 07/20/18 10:33 Dose: 1 cap Escitalopram Oxalate (Lexapro) 20 mg GT DAILY [facility] Gentamicin Sulfate (Gentamicin 0.1%) 0 gm TOP TID [facility] Last Admin: 07/23/18 18:43 Dose: 1 applic Glucagon (Glucagen Diagnostic Kit) 0 mg IM STAT PRN; Protocol PRN Reason: Hypoglycemia Protocol Guaifenesin (Robitussin) 100 mg PO Q4H PRN PRN Reason: Cough Last Admin: 07/23/18 17:52 Dose: 100 mg Hydromorphone HCl (Dilaudid) 1 mg IVP Q3H PRN PRN Reason: Pain, moderate (4-7) Last Admin: 07/23/18 16:34 Dose: 1 mg Meropenem 1 gm/ Sodium (Chloride) 100 mls @ 100 mls/hr IVPB Q8H [facility]; Protocol Last Admin: 07/23/18 16:01 Dose: 100 mls/hr Micafungin Sodium 100 mg/ (Sodium Chloride) 100 mls @ 100 mls/hr IV Q24H [facility]; Protocol Last Admin: 07/22/18 22:56 Dose: 100 mls/hr Vancomycin HCl 1,000 mg/ (Sodium Chloride) 250 mls @ 166.6 mls/hr IVPB Q12H [facility]; Protocol Stop: 07/29/18 17:01 Last Admin: 07/23/18 17:49 Dose: 166.6 mls/hr Dextrose (Dextrose 5% In Water 1000 Ml) 1,000 mls @ 0 mls/hr IV .Q0M PRN; Protocol PRN Reason: Hypoglycemia Protocol Insulin Human Regular (Novolin R) 0 unit SC ACHS [facility]; Protocol Last Admin: 07/23/18 18:43 Dose: Not Given Ipratropium [place] (Atrovent) 0.5 mg IH RQ6 [facility] Last Admin: 07/23/18 13:17 Dose: 0.5 mg Loperamide HCl (Imodium) 1 mg PO Q2H PRN PRN Reason: Diarrhea Last Admin: 07/23/18 17:53 Dose: 1 mg Loratadine (Claritin) 10 mg PO DAILY [facility] Last Admin: 07/23/18 10:28 Dose: 10 mg Lorazepam (Ativan) 1 mg IVP BID [facility] Last Admin: 07/23/18 17:50 Dose: 1 mg Metoprolol Tartrate (Lopressor) 12.5 mg PEG BID [facility] Last Admin: 07/23/18 18:43 Dose: 12.5 mg Nicotine (Nicoderm Cq) 1 patch TD DAILY [facility] Last Admin: 07/23/18 10:27 Dose: 1 patch Ondansetron HCl (Zofran Inj) 4 mg IVP Q6H PRN PRN Reason: Nausea/Vomiting Last Admin: 07/23/18 10:53 Dose: 4 mg Oxycodone HCl (Oxycodone Immediate Release Tab) 10 mg PO Q6 PRN PRN Reason: Pain, severe (8-10) Last Admin: 07/23/18 17:48 Dose: 10 mg Pantoprazole Sodium (Protonix Susp) 40 mg PO DAILY [facility] Last Admin: 07/23/18 10:27 Dose: 40 mg Saliva Substitute (Mouth Kote 236 Ml) 0 ml MM Q6 PRN PRN Reason: Dry mouth Trazodone HCl (Desyrel) 50 mg PO HS [facility] Vitamin A (Vitamin A & D Oint Ud Foilpak) 1 ea TOP Q8 PRN PRN Reason: dry lips Vitamin E (Vitamin E 400 Units Cap) 400 intlu GT DAILY [facility] Last Admin: 07/23/18 10:27 Dose: 400 intlu - Labs Labs: 07/23/18 07:29 07/23/18 07:29 PT 14.3 SECONDS (9.7-12.2) H 06/10/18 07:05 INR 1.3 06/10/18 07:05 APTT 33 SECONDS (21-34) 05/25/18 06:16
[2018-07-23] MEDS: Micafungin 100 MG in Sodium Chloride 0.9% 100 ML IV SCH (22:00)
--- NOTE | 2018-07-23 22:52 | CP.PCM.PN ---
Subjective - Date & Time of Evaluation Date of Evaluation: 07/23/18 Time of Evaluation: 17:00 - Subjective Subjective: Feeling better Objective - Vital Signs/Intake and Output Vital Signs (last 24 hours): Temp Pulse Resp BP Pulse Ox 99.0 F 95 H 20 129/90 96 07/23/18 15:10 07/23/18 15:10 07/23/18 15:10 07/23/18 15:10 07/23/18 15:10 - Medications Medications: Current Medications Acetaminophen (Tylenol 650mg/20.3ml Solution Ud) 975 mg GT Q8H PRN PRN Reason: Pain, Mild (1-3) Last Admin: 07/19/18 23:04 Dose: 975 mg Benzocaine/Menthol (Cepacol Sore Throat) 1 sravan MT Q2H PRN PRN Reason: Sore Throat Last Admin: 07/23/18 10:30 Dose: 1 sravan Calcium Acetate (Phoslo) 667 mg GT TIDCC [facility] Last Admin: 07/23/18 17:50 Dose: 667 mg Cholestyramine Resin (Questran) 4 gm PO BID [facility] Last Admin: 07/23/18 18:44 Dose: 4 gm Dextrose (Dextrose 50% Inj) 0 ml IV STAT PRN; Protocol PRN Reason: Hypoglycemia Protocol Ergocalciferol (Drisdol 50,000 Intl Units Cap) 1 cap PO Q7D [facility] Stop: 09/14/18 10:01 Last Admin: 07/20/18 10:33 Dose: 1 cap Escitalopram Oxalate (Lexapro) 20 mg GT DAILY [facility] Gentamicin Sulfate (Gentamicin 0.1%) 0 gm TOP TID [facility] Last Admin: 07/23/18 18:43 Dose: 1 applic Glucagon (Glucagen Diagnostic Kit) 0 mg IM STAT PRN; Protocol PRN Reason: Hypoglycemia Protocol Guaifenesin (Robitussin) 100 mg PO Q4H PRN PRN Reason: Cough Last Admin: 07/23/18 17:52 Dose: 100 mg Hydromorphone HCl (Dilaudid) 1 mg IVP Q3H PRN PRN Reason: Pain, moderate (4-7) Last Admin: 07/23/18 22:43 Dose: 1 mg Meropenem 1 gm/ Sodium (Chloride) 100 mls @ 100 mls/hr IVPB Q8H [facility]; Protocol Last Admin: 07/23/18 16:01 Dose: 100 mls/hr Micafungin Sodium 100 mg/ (Sodium Chloride) 100 mls @ 100 mls/hr IV Q24H [facility]; Protocol Last Admin: 07/23/18 22:00 Dose: 100 mls/hr Vancomycin HCl 1,000 mg/ (Sodium Chloride) 250 mls @ 166.6 mls/hr IVPB Q12H [facility]; Protocol Stop: 07/29/18 17:01 Last Admin: 07/23/18 17:49 Dose: 166.6 mls/hr Dextrose (Dextrose 5% In Water 1000 Ml) 1,000 mls @ 0 mls/hr IV .Q0M PRN; Protocol PRN Reason: Hypoglycemia Protocol Insulin Human Regular (Novolin R) 0 unit SC ACHS [facility]; Protocol Last Admin: 07/23/18 21:55 Dose: Not Given Ipratropium [place] (Atrovent) 0.5 mg IH RQ6 [facility] Last Admin: 07/23/18 19:12 Dose: 0.5 mg Loperamide HCl (Imodium) 1 mg PO Q2H PRN PRN Reason: Diarrhea Last Admin: 07/23/18 17:53 Dose: 1 mg Loratadine (Claritin) 10 mg PO DAILY [facility] Last Admin: 07/23/18 10:28 Dose: 10 mg Lorazepam (Ativan) 1 mg IVP BID [facility] Last Admin: 07/23/18 17:50 Dose: 1 mg Metoprolol Tartrate (Lopressor) 12.5 mg PEG BID [facility] Last Admin: 07/23/18 18:43 Dose: 12.5 mg Nicotine (Nicoderm Cq) 1 patch TD DAILY [facility] Last Admin: 07/23/18 10:27 Dose: 1 patch Ondansetron HCl (Zofran Inj) 4 mg IVP Q6H PRN PRN Reason: Nausea/Vomiting Last Admin: 07/23/18 10:53 Dose: 4 mg Oxycodone HCl (Oxycodone Immediate Release Tab) 10 mg PO Q6 PRN PRN Reason: Pain, severe (8-10) Last Admin: 07/23/18 17:48 Dose: 10 mg Pantoprazole Sodium (Protonix Susp) 40 mg PO DAILY [facility] Last Admin: 07/23/18 10:27 Dose: 40 mg Saliva Substitute (Mouth Kote 236 Ml) 0 ml MM Q6 PRN PRN Reason: Dry mouth Trazodone HCl (Desyrel) 50 mg PO HS [facility] Last Admin: 07/23/18 21:58 Dose: 50 mg Vitamin A (Vitamin A & D Oint Ud Foilpak) 1 ea TOP Q8 PRN PRN Reason: dry lips Vitamin E (Vitamin E 400 Units Cap) 400 intlu GT DAILY [facility] Last Admin: 07/23/18 10:27 Dose: 400 intlu - Labs Labs: 07/23/18 07:29 07/23/18 07:29 PT 14.3 SECONDS (9.7-12.2) H 06/10/18 07:05 INR 1.3 06/10/18 07:05 APTT 33 SECONDS (21-34) 05/25/18 06:16 - Head Exam Head Exam: ATRAUMATIC - Eye Exam Eye Exam: Normal appearance - ENT Exam ENT Exam: Mucous Membranes Dry - Respiratory Exam Respiratory Exam: NORMAL BREATHING PATTERN - Cardiovascular Exam Cardiovascular Exam: +S1, +S2 - Rectal Exam Rectal Exam: NORMAL INSPECTION Assessment and Plan (1) Anemia Assessment & Plan: iron deficiency anemia resolved s/p IV iron anemia of chronic disease; will consider Procrit supplementation in an attempt to avoid further transfusions if hgb < 9 FOBT positive transfuse PRN Status: Acute
--- NOTE | 2018-07-23 23:24 | PN ---
DATE: 07/23/2018 SUBJECTIVE: The patient is afebrile. She is feeling better. She has a PICC line. PHYSICAL EXAMINATION: VITAL SIGNS: T-max is 99, heart rate is 95, blood pressure is 129/90, respirations are 20. HEENT: Head is atraumatic and normocephalic. NECK: Supple. LUNGS: Clear. HEART: S1 and S2 are regular. ABDOMEN: Soft, nontender. No guarding, no rigidity present. ASSESSMENT AND PLAN: She still has a wound vacuum-assisted closure present. Also has a jejunostomy tube. Peripherally inserted central catheter line is unremarkable. Her last culture positive was Enterococcus on 07/16/2018, so she needs 14 days of treatment from this will be done on 07/30/2018 with bacteremia, and she needs a gastrostomy tube. 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 Guero Rivera MD
[2018-07-24] MEDS: Meropenem 1 GM in Sodium Chloride 0.9% 100 ML IVPB SCH ×4 (00:03→22:53)
[2018-07-24] MEDS: oxyCODONE 10 mg Immediate Release Tab PO PRN ×2 (00:10→16:19)
--- NOTE | 2018-07-24 00:23 | CP.PCM.PN ---
<Jose Angel Cornelius - Last Filed: 07/24/18 08:51> Subjective - Date & Time of Evaluation Date of Evaluation: 07/24/18 Time of Evaluation: 06:00 - Subjective Subjective: Jose Angel oCrnelius PGY-1, Medicine progress note Pt was seen and examined at bedside. Pt has no new complaints at this time. Pt still reports mild diffuse abdominal pain. Pt denies fever, chills, dizziness, headache, chest pain, dyspnea, changes in abdominal pain, n/v/d, homicidal ideations. Pt is walking around the hospital, without difficulty breathing. Pt reports that her pain is well controlled with current regimen. Objective - Vital Signs/Intake and Output Vital Signs (last 24 hours): Temp Pulse Resp BP Pulse Ox 99.0 F 95 H 20 129/90 96 07/23/18 15:10 07/23/18 15:10 07/23/18 15:10 07/23/18 15:10 07/23/18 15:10 Intake and Output: 07/23/18 07/24/18 18:59 06:59 Intake Total 450 Balance 450 - Medications Medications: Current Medications Acetaminophen (Tylenol 650mg/20.3ml Solution Ud) 975 mg GT Q8H PRN PRN Reason: Pain, Mild (1-3) Last Admin: 07/19/18 23:04 Dose: 975 mg Benzocaine/Menthol (Cepacol Sore Throat) 1 sarvan MT Q2H PRN PRN Reason: Sore Throat Last Admin: 07/23/18 10:30 Dose: 1 sravan Calcium Acetate (Phoslo) 667 mg GT TIDCC [facility] Last Admin: 07/23/18 17:50 Dose: 667 mg Cholestyramine Resin (Questran) 4 gm PO BID [facility] Last Admin: 07/23/18 18:44 Dose: 4 gm Dextrose (Dextrose 50% Inj) 0 ml IV STAT PRN; Protocol PRN Reason: Hypoglycemia Protocol Ergocalciferol (Drisdol 50,000 Intl Units Cap) 1 cap PO Q7D [facility] Stop: 09/14/18 10:01 Last Admin: 07/20/18 10:33 Dose: 1 cap Escitalopram Oxalate (Lexapro) 20 mg GT DAILY [facility] Gentamicin Sulfate (Gentamicin 0.1%) 0 gm TOP TID [facility] Last Admin: 07/23/18 18:43 Dose: 1 applic Glucagon (Glucagen Diagnostic Kit) 0 mg IM STAT PRN; Protocol PRN Reason: Hypoglycemia Protocol Guaifenesin (Robitussin) 100 mg PO Q4H PRN PRN Reason: Cough Last Admin: 07/23/18 17:52 Dose: 100 mg Hydromorphone HCl (Dilaudid) 1 mg IVP Q3H PRN PRN Reason: Pain, moderate (4-7) Last Admin: 07/23/18 22:43 Dose: 1 mg Meropenem 1 gm/ Sodium (Chloride) 100 mls @ 100 mls/hr IVPB Q8H KATELYN; Protocol Last Admin: 07/24/18 00:03 Dose: 100 mls/hr Micafungin Sodium 100 mg/ (Sodium Chloride) 100 mls @ 100 mls/hr IV Q24H KATELYN; Protocol Last Admin: 07/23/18 22:00 Dose: 100 mls/hr Vancomycin HCl 1,000 mg/ (Sodium Chloride) 250 mls @ 166.6 mls/hr IVPB Q12H KATELYN; Protocol Stop: 07/29/18 17:01 Last Admin: 07/23/18 17:49 Dose: 166.6 mls/hr Dextrose (Dextrose 5% In Water 1000 Ml) 1,000 mls @ 0 mls/hr IV .Q0M PRN; Protocol PRN Reason: Hypoglycemia Protocol Insulin Human Regular (Novolin R) 0 unit SC ACHS [facility]; Protocol Last Admin: 07/23/18 21:55 Dose: Not Given Ipratropium Conner (Atrovent) 0.5 mg IH RQ6 [facility] Last Admin: 07/23/18 19:12 Dose: 0.5 mg Loperamide HCl (Imodium) 1 mg PO Q2H PRN PRN Reason: Diarrhea Last Admin: 07/23/18 17:53 Dose: 1 mg Loratadine (Claritin) 10 mg PO DAILY [facility] Last Admin: 07/23/18 10:28 Dose: 10 mg Lorazepam (Ativan) 1 mg IVP BID [facility] Last Admin: 07/23/18 17:50 Dose: 1 mg Metoprolol Tartrate (Lopressor) 12.5 mg PEG BID [facility] Last Admin: 07/23/18 18:43 Dose: 12.5 mg Nicotine (Nicoderm Cq) 1 patch TD DAILY [facility] Last Admin: 07/23/18 10:27 Dose: 1 patch Ondansetron HCl (Zofran Inj) 4 mg IVP Q6H PRN PRN Reason: Nausea/Vomiting Last Admin: 07/23/18 10:53 Dose: 4 mg Oxycodone HCl (Oxycodone Immediate Release Tab) 10 mg PO Q6 PRN PRN Reason: Pain, severe (8-10) Last Admin: 07/24/18 00:10 Dose: 10 mg Pantoprazole Sodium (Protonix Susp) 40 mg PO DAILY [facility] Last Admin: 07/23/18 10:27 Dose: 40 mg Saliva Substitute (Mouth Kote 236 Ml) 0 ml MM Q6 PRN PRN Reason: Dry mouth Trazodone HCl (Desyrel) 50 mg PO HS [facility] Last Admin: 07/23/18 21:58 Dose: 50 mg Vitamin A (Vitamin A & D Oint Ud Foilpak) 1 ea TOP Q8 PRN PRN Reason: dry lips Vitamin E (Vitamin E 400 Units Cap) 400 intlu GT DAILY [facility] Last Admin: 07/23/18 10:27 Dose: 400 intlu - Labs Labs: 07/23/18 07:29 07/23/18 07:29 PT 14.3 SECONDS (9.7-12.2) H 06/10/18 07:05 INR 1.3 06/10/18 07:05 APTT 33 SECONDS (21-34) 05/25/18 06:16 - Constitutional Appears: Non-toxic, No Acute Distress - Head Exam Head Exam: ATRAUMATIC, NORMAL INSPECTION - Eye Exam Eye Exam: EOMI, Normal appearance - ENT Exam ENT Exam: Mucous Membranes Moist Additional comments: (+) NGT in place, on int suction with clear fluid in container - Neck Exam Neck Exam: Full ROM, Normal Inspection - Respiratory Exam Respiratory Exam: Clear to Ausculation Bilateral, NORMAL BREATHING PATTERN. absent: Rales, Rhonchi, Wheezes, Respiratory Distress - Cardiovascular Exam Cardiovascular Exam: REGULAR RHYTHM, +S1, +S2. absent: Gallop, Rubs, Murmur - GI/Abdominal Exam GI & Abdominal Exam: Soft, Tenderness (mild diffuse tenderdess), Normal Bowel Sounds Additional comments: (+) abdominal wound vac with gastrostomy tube; C/D/I, no erythema, bleeding, discharge or swelling. - Extremities Exam Extremities Exam: Normal Capillary Refill, Normal Inspection. absent: Calf Tenderness, Pedal Edema - Back Exam Back Exam: NORMAL INSPECTION - Neurological Exam Neurological Exam: Alert, Awake - Psychiatric Exam Psychiatric exam: Normal Affect, Normal Mood - Skin Skin Exam: Dry, Normal Color, Warm Assessment and Plan - Assessment and Plan (Free Text) Assessment: Ischemic bowel disease 2/2 internal hernia producing bowel obstruction Current drains include: NGT (intermittent suction per surgery recs) replaced on 07/09/18 by surgery team, gastrostomy tube (replaced 06/10/18) Latest wound cultures: -Abd incision, Peg incision site => Pseudomonas aeruginosa, sensitive to Meropenem -Per ID: Meropenem 1 g q 8 h (d/c 07/11; restarted 07/12), Vancomycin 1.5 g IVPB q 12 h (d/c on 07/05/18; restarted Vanco 1 g q 12h on 07/16) -vanco trough 07/05 -- 15.1 -Repeat abd wound cx 07/12 growing Pseudomonas and Chula Lusitaniae Surgery (Dr. Harley) consulted - awaiting Dr Mccray's response on surgical intervention; f/u with surgical team regarding dispo => per surgery pt cleared to go to LTACH facility and have reversal procedure done electively; waiting to hear from surgery regarding time and date for scheduled procedure Wound vac management as per surgery team Heme/onc (Dr. Cash) consulted for Fe status - repeat ferritin 185, no need for iron infusion at this time, continue to monitor Other cultures: 06/22/18: abd incision => Pseudomonas aeruginosa sensitive to Meropenem 06/22/18: Peg site => Pseudomonas aeruginosa sensitive to Meropenem 05/14/18: Peritoneal fluid => Pseudomonas aeruginosa sensitive to Meropenem 05/23/18: Wound cx => Chula albicans 05/15/18, 05/22/18: Blood cx => no growth 05/22/18: Urine cx => no growth 05/31/18: Incision site => Enterococcus faecalis, Acinetobacter baumannii 06/03/18: Stool cxs => No Salmonella, Shigella, or Campylobacter isolates 06/13/18: Repeat wound cx => Coag-neg Staph, Enterococcus raffinosus 07/12/18 Repeat wound cx growing Pseudomonas and Chula Lusitaniae 07/14/18 repeat blood cxs NG 07/15/18 repeat blood cxs through central line NG 07/15/18 Sputum cx no growth 07/15/18 Urine cx no growth 07/16/18 blood culture x2 via PICC line grew E. faecalis sensitive to vancomycin -Echocardiogram (07/18) shows EF approximately 56%, AV mildly thickened, MV moderately thickened. No vegetation. 07/18/18: NG for 5 days. Final. Antibiotics: Continue Meropenem 1 g q 8 h IVPB ; restarted as per ID due to pos abd wound cx (07/12) Vancomycin 1 g IV q 12 h started 07/16 Cipro 400 mg IV q 12h d/c'd (started 06/02/18, last day 06/16/18) Flagyl 500 mg IVPB q 8 h completed (active from 05/15/18-06/19/18) Micafungin 100mg IV Q24hrs Continue Gentamicin 0.1% TOP TID apply cream to peg tube site F/u vitamin levels and replace as needed: Vit D < 12.8, 08608 U q1 wk x 8 wks B12 707, wnl; repeat B12 508 Folate 12.6, wnl Vit A 42, wnl Alpha vit E 5.6, wnl Zinc level wnl Vit A, B1, B6, E levels reordered on 06/15 Vit B1: inappropriately submitted, 06/01/18 valve acceptable Vit B6: 5.9, wnl Vit A, E collected Repeat Vitamin levels ordered on 07/08, f/u results 07/08: Pre-albumin 11.6, B12 508, 25-OH vit D < 12.8, vit A 33, vit E wnl As per lpn care manager recs on 07/15, feeds changed to Jevity 1.5 with goal rate 50 mL C/w Tylenol 975 mg liquid q 8h, Dilaudid 1 mg q 3 h prn, Zofran 4 mg IV q 6 h prn; Oxycodone IR 10 mg q6h prn Fever, possible sepsis - Afebrile - abdominal wound culture shows chula and pseudomonas - chest x ray - lungs clear to auscultation b/l, no acute findings - Repeat portable chest x ray 07/18 - in situ NGT, the tip of which overlies the lower mediastinum and must be advanced. no acute infiltrates. - PICC Line removed(07/17) - catheter tip culture is negative for growth - New PICC line placed by IR (Dr. Peraza) on 07/22/18 - f/u sputum cultures - normal renetta - Urine culture - no growth, final -F/u Bl Doppler to rule out DVT - no DVT bilaterally - continue tylenol for fevers -abx: Meropenem 1 g q 8 h IVPB, Vancomycin 1 g IV q 12 h - random vanc is 11.2 - blood culture through picc line grew E. faecalis sensitive to vancomycin -continue with current abx as per ID Tachycardia, persistent, hx into 110s-130s (resolved) - possible etiologies include pain, infection, anxiety Today, HR is in the 80s, continue to monitor and trend Ativan prn, Dilaudid prn C/w metoprolol tartrate 12.5 mg bid via PEG tube Diarrhea- suspect 2/2 PO intake by patient C. Diff (05/22, 05/24, 05/28, 07/17) neg Stool ova and parasites (05/25/18) neg Stool leukocytes (05/25/18) neg Imodium 1 mg PO q 2h prn Anxiety Bed Laborer consulted - pt refusing at this time Psych consulted (Dr. Reyez) - managing Ativan, c/w prn Lexapro 10 mg GT daily (started 05/31) Insomnia - Benadryl d/c'd, clinically not indicated Anemia, acute, stable, pt denies blood in stool Total 2 PRBC (on 05/16) and 4 FFP (on 05/15 and 05/16) H/H is stable Iron 16, TIBC 205, % sat 4.7, repeat ferritin 185 after Ferrlecit continue to monitor Per Dr. Cash, consider Procrit supplementation in attempt to avoid further transfusions if Hgb < 9; transfuse prn Thrombocytosis - suspect reactive to pain, surgery; resolved continue to monitor DM2, controlled From prior note: admittedly non-compliant, has not taken Januvia for 1 y Accuchecks q6h Hypoglycemic protocol ISS regular HgbA1c 5.8 Hx gastric bypass surgery 07/23, pt had hypoglycemic event overnight (asymptomatic), treated with 1/2 amp D50. Resolved Hypercholesterolemia, untx LDL < 30, HDL < 23, Chol 59, TG 195 (06/03/18) Hx gastric bypass surgery Questran 4 g PO bid via PEG tube Hx HTN, controlled Metoprolol 12.5 mg bid via PEG tube Hx Asthma - Chronic Continue to monitor Atrovent prn Continue Robitussin prn Continue Claritin 10 daily for allergy sxs Nicotine use disorder - Chronic From prior note: 1 ppd x 20 y, 1/2 ppd x 3 y C/w Nicoderm patch Electrolyte imbalance - Hypokalemia, Hypomagnesemia, resolved continue to monitor and replete as needed PPX, Diet, Dispo Hydrocortisone 1% cream top tid for R upper inner arm macular rash - improved Vitamin A+D top q 8h prn for dry lips Saliva substitute q 6 h prn for dry mouth IVF not indicated at this time VTE ppx: Lovenox 40 subQ d, SCDs, encourage ambulation GI ppx: Protonix 40 mg IV bid, Florastor bid Code status: Full code Continue PT services, follow up recs Dispo: continue to medically optimize prior to reversal of surgery. Pt adamantly refuses LTACH because it would be inconvenient for her family and friends to visit her. I reiterated to the patient the need for medical optimization prior to reversal of surgery, she agrees but would like the reversal done as soon as possible, and states that she would rather go home than go to a LTACH. Case discussed with attending physician. <Doretha Turk V - Last Filed: 07/24/18 14:39> Objective - Vital Signs/Intake and Output Vital Signs (last 24 hours): Temp Pulse Resp BP Pulse Ox 98.7 F 100 H 20 117/80 95 07/24/18 07:00 07/24/18 07:00 07/24/18 07:00 07/24/18 07:00 07/24/18 07:00 Intake and Output: 07/24/18 07/24/18 06:59 18:59 Intake Total 1325 Balance 1325 - Medications Medications: Current Medications Acetaminophen (Tylenol 650mg/20.3ml Solution Ud) 975 mg GT Q8H PRN PRN Reason: Pain, Mild (1-3) Last Admin: 07/19/18 23:04 Dose: 975 mg Benzocaine/Menthol (Cepacol Sore Throat) 1 sravan MT Q2H PRN PRN Reason: Sore Throat Last Admin: 07/24/18 11:34 Dose: 1 sravan Calcium Acetate (Phoslo) 667 mg GT TIDCC [facility] Last Admin: 07/24/18 11:32 Dose: 667 mg Cholestyramine Resin (Questran) 4 gm PO BID [facility] Last Admin: 07/24/18 11:33 Dose: 4 gm Dextrose (Dextrose 50% Inj) 0 ml IV STAT PRN; Protocol PRN Reason: Hypoglycemia Protocol Ergocalciferol (Drisdol 50,000 Intl Units Cap) 1 cap PO Q7D [facility] Stop: 09/14/18 10:01 Last Admin: 07/20/18 10:33 Dose: 1 cap Escitalopram Oxalate (Lexapro) 20 mg GT DAILY [facility] Last Admin: 07/24/18 11:49 Dose: 20 mg Gentamicin Sulfate (Gentamicin 0.1%) 0 gm TOP TID [facility] Last Admin: 07/24/18 11:49 Dose: 1 applic Glucagon (Glucagen Diagnostic Kit) 0 mg IM STAT PRN; Protocol PRN Reason: Hypoglycemia Protocol Guaifenesin (Robitussin) 100 mg PO Q4H PRN PRN Reason: Cough Last Admin: 07/24/18 11:33 Dose: 100 mg Hydromorphone HCl (Dilaudid) 1 mg IVP Q3H PRN PRN Reason: Pain, moderate (4-7) Last Admin: 07/24/18 11:48 Dose: 1 mg Meropenem 1 gm/ Sodium (Chloride) 100 mls @ 100 mls/hr IVPB Q8H KAT[facility]N; Protocol Last Admin: 07/24/18 08:40 Dose: 100 mls/hr Micafungin Sodium 100 mg/ (Sodium Chloride) 100 mls @ 100 mls/hr IV Q24H KATELYN; Protocol Last Admin: 07/23/18 22:00 Dose: 100 mls/hr Vancomycin HCl 1,000 mg/ (Sodium Chloride) 250 mls @ 166.6 mls/hr IVPB Q12H [facility]; Protocol Stop: 07/29/18 17:01 Last Admin: 07/24/18 04:08 Dose: 166.6 mls/hr Dextrose (Dextrose 5% In Water 1000 Ml) 1,000 mls @ 0 mls/hr IV .Q0M PRN; Protocol PRN Reason: Hypoglycemia Protocol Insulin Human Regular (Novolin R) 0 unit SC ACHS [facility]; Protocol Last Admin: 07/24/18 11:50 Dose: Not Given Ipratropium Conner (Atrovent) 0.5 mg IH RQ6 [facility]AT[facility]N Last Admin: 07/24/18 13:43 Dose: 0.5 mg Loperamide HCl (Imodium) 1 mg PO Q2H PRN PRN Reason: Diarrhea Last Admin: 07/24/18 11:33 Dose: 1 mg Loratadine (Claritin) 10 mg PO DAILY [facility] Last Admin: 07/24/18 11:34 Dose: 10 mg Lorazepam (Ativan) 1 mg IVP BID [facility] Last Admin: 07/24/18 11:33 Dose: 1 mg Metoprolol Tartrate (Lopressor) 12.5 mg PEG BID [facility] Last Admin: 07/24/18 11:49 Dose: 12.5 mg Nicotine (Nicoderm Cq) 1 patch TD DAILY [facility] Last Admin: 07/24/18 11:33 Dose: 1 patch Ondansetron HCl (Zofran Inj) 4 mg IVP Q6H PRN PRN Reason: Nausea/Vomiting Last Admin: 07/23/18 10:53 Dose: 4 mg Oxycodone HCl (Oxycodone Immediate Release Tab) 10 mg PO Q6 PRN PRN Reason: Pain, severe (8-10) Last Admin: 07/24/18 00:10 Dose: 10 mg Pantoprazole Sodium (Protonix Susp) 40 mg PO DAILY [facility] Last Admin: 07/24/18 11:32 Dose: 40 mg Saliva Substitute (Mouth Kote 236 Ml) 0 ml MM Q6 PRN PRN Reason: Dry mouth Trazodone HCl (Desyrel) 50 mg PO HS [facility] Last Admin: 07/23/18 21:58 Dose: 50 mg Vitamin A (Vitamin A & D Oint Ud Foilpak) 1 ea TOP Q8 PRN PRN Reason: dry lips Vitamin E (Vitamin E 400 Units Cap) 400 intlu GT DAILY [facility] Last Admin: 07/24/18 11:33 Dose: 400 intlu - Labs Labs: 07/24/18 07:15 07/24/18 07:15 PT 14.3 SECONDS (9.7-12.2) H 08/31/18 07:05 INR 1.3 06/10/18 07:05 APTT 33 SECONDS (21-34) 05/25/18 06:16 Assessment and Plan (1) Ischemic bowel disease Status: Acute (2) Obesity (BMI 30-39.9) Status: Acute (3) Small bowel obstruction Status: Acute (4) Prophylactic measure Status: Acute Attending/Attestation - Attestation I have personally seen and examined this patient.: Yes I have fully participated in the care of the patient.: Yes I have reviewed all pertinent clinical information, including history, physical exam and plan: Yes Notes (Text): Patient seen, examined, case discussed with medical charge entry specialist. Patient seen this afternoon accompanied by his nurse Dylan. Patient denies acute complaints. Patient seen picking up random scraps off the floor is better as being clean. Abdominal wound is clean dry intact with wound VAC on board as well as gastrostomy tube in place small discharge likely feed. Patient remains afebrile patient had mild white count and 12. I did repeat blood culture preemptively however we'll continue the same antibiotics. Per ID patient to continue IV antibiotics until 07/30/2018. I did discuss with patient as well to Dr. Harley himself will come and see the patient when he has secured a surgery date for her primary discussion with him yesterday. Assessment/Plan (1) Ischemic bowel disease Assessment & Plan: * Dr. Harley (surgery) on the case-->help appreciated * Preoperative/intraoperative/postoperative management per surgery * Following Bariatric surgeon (Dr. Mccray) to determine reversal bariatric surgery * Continue wound vac change per surgery * Continue tube feeds for nutrition * Continue NGT to intermittent suction * Continue antibiotics, PRN pain medications * Dr. Alvarado (GI) on the case-->help appreciated * Dr. Rivera (ID) on the case-->help appreciated * Brief summary of: * Patient has had 2 bloody bowel movements started 05/14/18. Patient's rectal: blood. She had reported abdominal pain has worsening since night of admission. Patient required emergent surgical intervention on 05/14/18 and transferred to ICU. Per operative note (05/14/18): Diagnostic laparoscopy, Exploratory laparotomy, Reduction of internal hernia, Lysis of adhesions, Drainage of abdominal collections, temporary abdominal closure, EGD * Ischemia of yenni limb, internal hernia. Naveed drain stitched to distal common limb * Patient underwent surgery again on 05/16/18.Re-exploration, Small bowel resection of ileum, small bowel resection of Yenni limb with arun rojejunostomy, reversal of bypass, primary anastomosis of ileum-ileum, ileum-ileum, and ileum-jejunum, Gastrostomy tube in bypassed stomach, EGD. Patient extubated 05/16/18. Patient is pending surgery intervention to restore GI motility. prior conversation discussed with Dr. Harley who will followup with Dr. Mccray by and give this month Measure vitamin levels and replace as needed * Vit D <12.8- vit D 50,000 units q1wk; patient has completed 8 weeks of vitamin D supplementation. We'll continue vitamin D supplementation * Prealbumin 18.1 * Folate 12.6 * Vitamin A: 42: 39; 33 * Vitamin B12: 797, 707, 508 * Vitamin C: 0.8 * Vitamin E: 5.6 (low)--> patient has been on vitamin E supplementation since 06/12/2018. Vitamin E levels repeated were normal. Vitamin E 11.7 and 13.2 * Vitamin B6: 11.1 (normal) and Vitamin B1: 93 (from 06/01/18) * Drains included: NGT Tube in place replaced jul 09, gastrostomy tube, left min removed 05/25/18; right min was removed 05/23/18; no ojeda; wound vac on board; new PICC line 07/22 * IV abx: * Meropenem 1 g IV piggyback every 8hours active since 07/14/2018 * vancomycin 1 g IV piggyback every 12 hours--> patient to finish her vancomy erwin on July 27 per infectious disease * Micafungin 100 mg IV Q24H (active since 07/14/18) * antibiotics to continue through July 30 for bacteremia * Cultures: * Blood cultures from July 16 show Enterococcus faecalis 2 * Blood cultures from July 18 show no growth after 5 days 2 * Catheter tip shows no growth * Blood cultures from 07/14/2018 no growth for 3 days * Blood cultures from 07/15/2018 via PICC line no growth * Sputum culture no growth * Urine culture no growth * Patient remained C. difficile 4 negative * PRNS: * Tylenol 975 mg liq q8hrs * Dilaudid 1.5 mg IV q3hrs PRN-->Dilaudid 1mg IV Q3H PRN * Zofran 4mg IV q6hrs PRN * Ativan 1mg IV BID anxiety-->per psych * Diarrhea * Patient is Questran 4gm PO BID Status: Acute (2) Small bowel obstruction Assessment & Plan: * Secondary to hernia * Further details noted in #1 Status: Acute (3) Obesity (BMI 30-39.9) Assessment & Plan: * s/p gastric bypass surgery in 2013 * Operative note (2013): Yenni-en-Y gastric bypass surgery * Given nature of ischemic bowel affecting portioning of the gastric limb, she will need to wait until nutritional status is optimized per surgery Status: Acute (4) Status post gastric bypass for obesity Assessment & Plan: * status post gastric bypass 2013 * Operative note (2013): Yenni-en-Y gastric bypass surgery * Patient noncomplaint with following up postoperative. Status: Acute (5) History of Asthma Assessment & Plan: * Patient not in acute exacerbation prior to OR * Atrovent Q6H (6) Diabetes Mellitus (Type 2); controlled Assessment & Plan: * From prior note: * Admittedly non-compliant - has not taken Januvia for one year * Accuchecks Q6H * Hypoglycemic protocol * HbA1c - 6.3 (03/10/17) * hgba1c: 5.8 * History of gastric bypass surgery (8) Hx of HTN (hypertension) Assessment & Plan: * Since Gastric Bypass has not taken meds (9) Hx of Hypothyroid Assessment & Plan: * From prior note: * Pt admits non-compliance (10) Hypercholesterolemia Assessment & Plan: * From prior note: * Pt not taking meds * LDL 138, HDL 67, Tchol 220, Trig 112 * History of gastric bypass surgery (11) Anxiety Assessment & Plan: * Psychiatry (Dr. 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 Assessment & Plan: * 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 and from my prior note from last hospitalization (13) Smoker Assessment & Plan: * From my prior note: 1ppd x 20 yrs, 1/2 ppd x 3 yrs * Nicoderm 1 patch TD patchy (14) Tachycardia Assessment & Plan: * Lopressor 12.5mg PO BID * Tachycardia has normalized (15) Prophylactic measure Assessment & Plan: * Bacid Acidophilus 1 cap PEG BID * Lovenox 40mg subqdaily for DVT ppx * PICC line 06/01/18: removed 07/17/2018: Replaced 07/22/2018 * protonix 40mg IV Qdaily * Vitamin A&D ointment 1 each top Q8H * NGT Tube replaced 07/09/2018 * IR exchange of Ojeda to 24 comoran gauge 06/10/18 * Wound vac * Dressing changed per surgery * Feed orders: * Patient is currently on Jevity. Status: Acute Disposition: Awaiting coordination from surgery and bariatric surgery for rever maria g since there is GI dysmotility. Patient is on vancomycin and meropenem foror bacteremia suspected secondary to PICC line. repeat blood culture show clearance of infection. Patient has been without fever since July 17. Patient is refusing LTAC. Patient is anxious and would like surgery. Have come explained to her and her mother in prior visits that the surgeon tends to do reversal surgery however now in light of an acute infection. I have spoken with surgery yesterday awaiting final confirmation date as patient is being treated for bacteremia. patient to continue IV antibiotic. I have repeated blood cultures in light of elevated white count at 12.
[2018-07-24] MEDS: Ipratropium 0.02% Inhal Soln (0.5 mg/2.5 ml) UD IH SCH ×4 (02:10→19:51)
[2018-07-24] MEDS: HYDROmorphone 1 mg/ml ISec IVP PRN ×7 (02:33→21:10)
[2018-07-24 07:40] LABS: BASO % 0.3 % (0.0-2.0); EOS # 1.1 K/uL (0.0-0.7); EOS % 9.2 % (0.0-4.0); HEMOGLOBIN 9.6 g/dL (11.0-16.0); LYMPH # 2.3 K/uL (1.0-4.3); LYMPH % 19.4 % (20.0-40.0); MEAN CELL VOLUME 85.8 fL (81.0-99.0); MEAN CORPUSCULAR HGB CONC 32.7 g/dL (33.0-37.0); MONO # 0.5 K/uL (0.0-0.8); MONO % 3.8 % (0.0-10.0); NEUT # 8.1 K/uL (1.8-7.0); NEUT % 67.3 % (50.0-75.0); RBC 3.43 Mil/uL (3.80-5.20); RED CELL DISTRIBUTION WIDTH 17.9 % (11.5-14.5)
[2018-07-24] MEDS: (Novolin R) Insulin Human Regular 100 units/ml vial SC SCH ×4 (08:28→21:52)
[2018-07-24 08:34] LABS: ALB/GLOB RATIO 0.9 (1.0-2.1); ALBUMIN 2.7 g/dL (3.5-5.0); ALT/SGPT 25 U/L (9-52); AST/SGOT 29 U/L (14-36); BLOOD UREA NITROGEN 10 mg/dL (7-17); CALCIUM 8.4 mg/dl (8.6-10.4); GFR NON-AFRICAN AMERICAN > 60
[2018-07-24] MEDS: Pantoprazole 40 mg Susp UD PO SCH (11:32)
[2018-07-24] MEDS: guaiFENesin 100 mg/5 ml Syrup UD PO PRN ×2 (11:33→18:16)
[2018-07-24] MEDS: Cholestyramine 4 gm/Pkt UD PO SCH ×2 (11:33→18:17)
[2018-07-24] MEDS: Loperamide Hydrochloride 1 mg/5 ml Cup PO PRN ×2 (11:33→18:16)
[2018-07-24] MEDS: Benzocaine/Menthol (Cepacol) Lozenge MT PRN ×2 (11:34→18:21)
[2018-07-24] MEDS: GENTAMICIN 0.1% TOP SCH ×3 (11:49→18:10)
[2018-07-25] MEDS: Ipratropium 0.02% Inhal Soln (0.5 mg/2.5 ml) UD IH SCH ×3 (02:10→21:20)
[2018-07-25] MEDS: HYDROmorphone 1 mg/ml ISec IVP PRN ×7 (02:33→21:23)
[2018-07-25] MEDS: Meropenem 1 GM in Sodium Chloride 0.9% 100 ML IVPB SCH ×2 (07:03→15:54)
[2018-07-25 07:17] LABS: BASO % 0.4 % (0.0-2.0); EOS # 1.1 K/uL (0.0-0.7); EOS % 12.9 % (0.0-4.0); HEMOGLOBIN 9.4 g/dL (11.0-16.0); LYMPH # 2.4 K/uL (1.0-4.3); LYMPH % 28.1 % (20.0-40.0); MEAN CELL VOLUME 85.3 fL (81.0-99.0); MEAN CORPUSCULAR HEMOGLOBIN 28.4 pg (27.0-31.0); MEAN CORPUSCULAR HGB CONC 33.3 g/dL (33.0-37.0); MEAN PLATELET VOLUME 7.2 fL (7.2-11.7); MONO # 0.4 K/uL (0.0-0.8); MONO % 5.1 % (0.0-10.0); NEUT # 4.6 K/uL (1.8-7.0); NEUT % 53.5 % (50.0-75.0); NRBC % 0.1 % (0.0-2.0); RBC 3.3 Mil/uL (3.80-5.20); RED CELL DISTRIBUTION WIDTH 17.9 % (11.5-14.5); WHITE BLOOD COUNT 8.7 K/uL (4.8-10.8)
[2018-07-25] MEDS: (Novolin R) Insulin Human Regular 100 units/ml vial SC SCH ×4 (07:30→21:37)
[2018-07-25 07:48] LABS: ALB/GLOB RATIO 0.9 (1.0-2.1); ALBUMIN 2.7 g/dL (3.5-5.0); ALT/SGPT 31 U/L (9-52); AST/SGOT 34 U/L (14-36); BLOOD UREA NITROGEN 7 mg/dL (7-17); CALCIUM 8.5 mg/dl (8.6-10.4); GFR NON-AFRICAN AMERICAN > 60
--- NOTE | 2018-07-25 09:19 | CP.PCM.PN ---
<Marti Mo - Last Filed: 07/26/18 06:01> Subjective - Date & Time of Evaluation Date of Evaluation: 07/25/18 Time of Evaluation: 14:00 - Subjective Subjective: surgery progress note for Dr. Harley Pt seen and examined at bedside. patient states her pain is well managed, still has diarrhea, and minimal nausea. Is eager to know the surgical plan Objective - Vital Signs/Intake and Output Vital Signs (last 24 hours): Temp Pulse Resp BP Pulse Ox 97.8 F 83 20 131/87 98 07/25/18 07:00 07/25/18 07:00 07/25/18 07:00 07/25/18 07:00 07/25/18 07:00 Intake and Output: 07/25/18 07/25/18 06:59 18:59 Intake Total 350 Output Total 200 Balance 150 - Medications Medications: Current Medications Acetaminophen (Tylenol 650mg/20.3ml Solution Ud) 975 mg GT Q8H PRN PRN Reason: Pain, Mild (1-3) Last Admin: 07/19/18 23:04 Dose: 975 mg Benzocaine/Menthol (Cepacol Sore Throat) 1 sravan MT Q2H PRN PRN Reason: Sore Throat Last Admin: 07/24/18 18:21 Dose: 1 sravan Calcium Acetate (Phoslo) 667 mg GT TIDCC [facility] Last Admin: 07/25/18 08:39 Dose: 667 mg Cholestyramine Resin (Questran) 4 gm PO BID [facility] Last Admin: 07/24/18 18:17 Dose: 4 gm Dextrose (Dextrose 50% Inj) 0 ml IV STAT PRN; Protocol PRN Reason: Hypoglycemia Protocol Ergocalciferol (Drisdol 50,000 Intl Units Cap) 1 cap PO Q7D [facility] Stop: 09/14/18 10:01 Last Admin: 07/20/18 10:33 Dose: 1 cap Escitalopram Oxalate (Lexapro) 20 mg GT DAILY [facility] Last Admin: 07/24/18 11:49 Dose: 20 mg Gentamicin Sulfate (Gentamicin 0.1%) 0 gm TOP TID [facility] Last Admin: 07/24/18 18:10 Dose: 1 applic Glucagon (Glucagen Diagnostic Kit) 0 mg IM STAT PRN; Protocol PRN Reason: Hypoglycemia Protocol Guaifenesin (Robitussin) 100 mg PO Q4H PRN PRN Reason: Cough Last Admin: 07/24/18 18:16 Dose: 100 mg Hydromorphone HCl (Dilaudid) 1 mg IVP Q3H PRN PRN Reason: Pain, moderate (4-7) Last Admin: 07/25/18 08:38 Dose: 1 mg Meropenem 1 gm/ Sodium (Chloride) 100 mls @ 100 mls/hr IVPB Q8H [facility]; Protocol Last Admin: 07/25/18 07:03 Dose: 100 mls/hr Micafungin Sodium 100 mg/ (Sodium Chloride) 100 mls @ 100 mls/hr IV Q24H [facility]; Protocol Last Admin: 07/23/18 22:00 Dose: 100 mls/hr Vancomycin HCl 1,000 mg/ (Sodium Chloride) 250 mls @ 166.6 mls/hr IVPB Q12H [facility]; Protocol Stop: 07/29/18 17:01 Last Admin: 07/25/18 04:00 Dose: 166.6 mls/hr Dextrose (Dextrose 5% In Water 1000 Ml) 1,000 mls @ 0 mls/hr IV .Q0M PRN; Protocol PRN Reason: Hypoglycemia Protocol Potassium Chloride (Potassium Chloride 20 Meq/100 Ml) 20 meq in 100 mls @ 50 mls/hr IVPB ONCE ONE Stop: 07/25/18 10:58 Insulin Human Regular (Novolin R) 0 unit SC ACHS [facility]; Protocol Last Admin: 07/25/18 07:30 Dose: Not Given Ipratropium [place] (Atrovent) 0.5 mg IH RQ6 [facility] Last Admin: 07/25/18 08:02 Dose: Not Given Loperamide HCl (Imodium) 1 mg PO Q2H PRN PRN Reason: Diarrhea Last Admin: 07/24/18 18:16 Dose: 1 mg Loratadine (Claritin) 10 mg PO DAILY [facility] Last Admin: 07/24/18 11:34 Dose: 10 mg Lorazepam (Ativan) 1 mg IVP BID [facility] Last Admin: 07/24/18 18:16 Dose: 1 mg Metoprolol Tartrate (Lopressor) 12.5 mg PEG BID [facility] Last Admin: 07/24/18 18:00 Dose: 12.5 mg Nicotine (Nicoderm Cq) 1 patch TD DAILY [facility] Last Admin: 10/14/18 11:33 Dose: 1 patch Ondansetron HCl (Zofran Inj) 4 mg IVP Q6H PRN PRN Reason: Nausea/Vomiting Last Admin: 07/25/18 08:46 Dose: 4 mg Oxycodone HCl (Oxycodone Immediate Release Tab) 10 mg PO Q6 PRN PRN Reason: Pain, severe (8-10) Last Admin: 07/24/18 16:19 Dose: 10 mg Pantoprazole Sodium (Protonix Susp) 40 mg PO DAILY [facility] Last Admin: 07/24/18 11:32 Dose: 40 mg Saliva Substitute (Mouth Kote 236 Ml) 0 ml MM Q6 PRN PRN Reason: Dry mouth Trazodone HCl (Desyrel) 50 mg PO HS [facility] Last Admin: 07/24/18 21:10 Dose: 50 mg Vitamin A (Vitamin A & D Oint Ud Foilpak) 1 ea TOP Q8 PRN PRN Reason: dry lips Vitamin E (Vitamin E 400 Units Cap) 400 intlu GT DAILY [facility] Last Admin: 07/24/18 11:33 Dose: 400 intlu - Labs Labs: 07/25/18 06:54 07/25/18 06:54 PT 14.3 SECONDS (9.7-12.2) H 06/10/18 07:05 INR 1.3 06/10/18 07:05 APTT 33 SECONDS (21-34) 05/25/18 06:16 - Constitutional Appears: Well, Non-toxic, No Acute Distress - Head Exam Head Exam: ATRAUMATIC, NORMOCEPHALIC - Eye Exam Eye Exam: Normal appearance. absent: Conjunctival injection, Scleral icterus - ENT Exam ENT Exam: Mucous Membranes Moist, Normal Oropharynx - Respiratory Exam Respiratory Exam: NORMAL BREATHING PATTERN. absent: Accessory Muscle Use, Respiratory Distress - Cardiovascular Exam Cardiovascular Exam: RRR - GI/Abdominal Exam GI & Abdominal Exam: Soft. absent: Distended, Tenderness Additional comments: midline incision healing well with 2 small areas of granulation tissue in the inferior pole of the incision, no surrounding erythema, minimal drainage - Extremities Exam Extremities Exam: absent: Calf Tenderness, Pedal Edema, Tenderness - Neurological Exam Neurological Exam: Alert, Awake, Oriented x3 - Psychiatric Exam Psychiatric exam: Normal Affect, Normal Mood - Skin Skin Exam: Dry, Normal Color, Warm Assessment and Plan - Assessment and Plan (Free Text) Assessment: 38F s/p exploratory laparotomy, gastrict and intestinal resection for internal hernia with bowel ischemia, no in discontinuity Plan: Continue to trend bmp, albumin, supplement electrolytes and protein as needed Continue tube feeds Continue NGT to wall suction Continue wound vac over the inferior midline incision Further surgical planning pending gastric surgeon recs Discussed with Dr. Cricket Mo, PGY2 <Gómez Harley B - Last Filed: 08/01/18 18:17> Objective - Vital Signs/Intake and Output Vital Signs (last 24 hours): Temp Pulse Resp BP Pulse Ox 99.2 F 69 20 72/43 L 92 L 07/29/18 23:20 07/29/18 23:20 07/29/18 23:20 07/29/18 23:20 07/29/18 23:20 - Labs Labs: 07/30/18 04:14 07/30/18 04:14 PT 14.3 SECONDS (9.7-12.2) H 06/10/18 07:05 INR 1.3 06/10/18 07:05 APTT 33 SECONDS (21-34) 05/25/18 06:16 Attending/Attestation - Attestation I have fully participated in the care of the patient.: Yes I have reviewed all pertinent clinical information, including history, physical exam and plan: Yes Notes (Text): Pt is stable clinically Possible OR on last july or first week of August We will d.w Dr. Mccray for approximate time and date of operation c/w current mx Plan d.w pt in detail
--- NOTE | 2018-07-25 09:29 | CP.PCM.PN ---
<Morris Connolly - Last Filed: 07/25/18 18:37> Subjective - Date & Time of Evaluation Date of Evaluation: 07/25/18 Time of Evaluation: 07:45 - Subjective Subjective: Medicine Progress Note for Hospitalist Service Pt seen and examined at bedside this am. Per report from RN pt was discarding her NGT output on own overnight. Pt observed in and out of sleep, denied any acute complaints this am. Denied headache, fever, chills, chest pain, sob, n/v/d/c, abd pain, urinary complaints, or other symptoms. Denies SI/HI currently or being depressed. Objective - Vital Signs/Intake and Output Vital Signs (last 24 hours): Temp Pulse Resp BP Pulse Ox 97.8 F 83 20 131/87 98 07/25/18 07:00 07/25/18 07:00 07/25/18 07:00 07/25/18 07:00 07/25/18 07:00 Intake and Output: 07/25/18 07/25/18 06:59 18:59 Intake Total 350 Output Total 200 Balance 150 - Medications Medications: Current Medications Acetaminophen (Tylenol 650mg/20.3ml Solution Ud) 975 mg GT Q8H PRN PRN Reason: Pain, Mild (1-3) Last Admin: 07/19/18 23:04 Dose: 975 mg Benzocaine/Menthol (Cepacol Sore Throat) 1 sravan MT Q2H PRN PRN Reason: Sore Throat Last Admin: 07/24/18 18:21 Dose: 1 sravan Calcium Acetate (Phoslo) 667 mg GT TIDCC [facility] Last Admin: 07/25/18 08:39 Dose: 667 mg Cholestyramine Resin (Questran) 4 gm PO BID [facility] Last Admin: 07/24/18 18:17 Dose: 4 gm Dextrose (Dextrose 50% Inj) 0 ml IV STAT PRN; Protocol PRN Reason: Hypoglycemia Protocol Ergocalciferol (Drisdol 50,000 Intl Units Cap) 1 cap PO Q7D [facility] Stop: 09/14/18 10:01 Last Admin: 07/20/18 10:33 Dose: 1 cap Escitalopram Oxalate (Lexapro) 20 mg GT DAILY [facility] Last Admin: 07/24/18 11:49 Dose: 20 mg Gentamicin Sulfate (Gentamicin 0.1%) 0 gm TOP TID [facility] Last Admin: 07/24/18 18:10 Dose: 1 applic Glucagon (Glucagen Diagnostic Kit) 0 mg IM STAT PRN; Protocol PRN Reason: Hypoglycemia Protocol Guaifenesin (Robitussin) 100 mg PO Q4H PRN PRN Reason: Cough Last Admin: 07/24/18 18:16 Dose: 100 mg Hydromorphone HCl (Dilaudid) 1 mg IVP Q3H PRN PRN Reason: Pain, moderate (4-7) Last Admin: 07/25/18 08:38 Dose: 1 mg Meropenem 1 gm/ Sodium (Chloride) 100 mls @ 100 mls/hr IVPB Q8H [facility]; Protocol Last Admin: 07/25/18 07:03 Dose: 100 mls/hr Micafungin Sodium 100 mg/ (Sodium Chloride) 100 mls @ 100 mls/hr IV Q24H [facility]; Protocol Last Admin: 07/23/18 22:00 Dose: 100 mls/hr Vancomycin HCl 1,000 mg/ (Sodium Chloride) 250 mls @ 166.6 mls/hr IVPB Q12H [facility]; Protocol Stop: 07/29/18 17:01 Last Admin: 07/25/18 04:00 Dose: 166.6 mls/hr Dextrose (Dextrose 5% In Water 1000 Ml) 1,000 mls @ 0 mls/hr IV .Q0M PRN; Protocol PRN Reason: Hypoglycemia Protocol Potassium Chloride (Potassium Chloride 20 Meq/100 Ml) 20 meq in 100 mls @ 50 mls/hr IVPB ONCE ONE Stop: 07/25/18 10:58 Insulin Human Regular (Novolin R) 0 unit SC ACHS [facility]; Protocol Last Admin: 07/25/18 07:30 Dose: Not Given Ipratropium [place] (Atrovent) 0.5 mg IH RQ6 [facility] Last Admin: 07/25/18 08:02 Dose: Not Given Loperamide HCl (Imodium) 1 mg PO Q2H PRN PRN Reason: Diarrhea Last Admin: 07/24/18 18:16 Dose: 1 mg Loratadine (Claritin) 10 mg PO DAILY [facility] Last Admin: 07/24/18 11:34 Dose: 10 mg Lorazepam (Ativan) 1 mg IVP BID [facility] Last Admin: 07/24/18 18:16 Dose: 1 mg Metoprolol Tartrate (Lopressor) 12.5 mg PEG BID [facility] Last Admin: 07/24/18 18:00 Dose: 12.5 mg Nicotine (Nicoderm Cq) 1 patch TD DAILY [facility] Last Admin: 07/24/18 11:33 Dose: 1 patch Ondansetron HCl (Zofran Inj) 4 mg IVP Q6H PRN PRN Reason: Nausea/Vomiting Last Admin: 07/25/18 08:46 Dose: 4 mg Oxycodone HCl (Oxycodone Immediate Release Tab) 10 mg PO Q6 PRN PRN Reason: Pain, severe (8-10) Last Admin: 07/24/18 16:19 Dose: 10 mg Pantoprazole Sodium (Protonix Susp) 40 mg PO DAILY [facility] Last Admin: 07/24/18 11:32 Dose: 40 mg Saliva Substitute (Mouth Kote 236 Ml) 0 ml MM Q6 PRN PRN Reason: Dry mouth Trazodone HCl (Desyrel) 50 mg PO HS [facility] Last Admin: 07/24/18 21:10 Dose: 50 mg Vitamin A (Vitamin A & D Oint Ud Foilpak) 1 ea TOP Q8 PRN PRN Reason: dry lips Vitamin E (Vitamin E 400 Units Cap) 400 intlu GT DAILY [facility] Last Admin: 07/24/18 11:33 Dose: 400 intlu - Labs Labs: 07/25/18 06:54 07/25/18 06:54 PT 14.3 SECONDS (9.7-12.2) H 06/10/18 07:05 INR 1.3 06/10/18 07:05 APTT 33 SECONDS (21-34) 05/25/18 06:16 - Constitutional Appears: Non-toxic, No Acute Distress, Chronically Ill - Head Exam Head Exam: ATRAUMATIC, NORMOCEPHALIC - Eye Exam Eye Exam: EOMI, Normal appearance, PERRL - ENT Exam ENT Exam: Mucous Membranes Moist - Respiratory Exam Respiratory Exam: Clear to Ausculation Bilateral, NORMAL BREATHING PATTERN. absent: Rales, Rhonchi, Wheezes - Cardiovascular Exam Cardiovascular Exam: REGULAR RHYTHM, +S1, +S2. absent: Gallop, Rubs, Murmur - GI/Abdominal Exam GI & Abdominal Exam: Soft, Normal Bowel Sounds. absent: Distended, Tenderness, Organomegaly, Rebound Additional comments: gastrostomy tube and abd wound vac dry and intact - Extremities Exam Extremities Exam: Full ROM, Normal Capillary Refill, Normal Inspection. absent: Calf Tenderness, Pedal Edema - Neurological Exam Neurological Exam: Alert, Awake, CN II-XII Intact, Normal Gait, Oriented x3 - Psychiatric Exam Psychiatric exam: Normal Affect, Normal Mood - Skin Skin Exam: Dry, Intact, Normal Color, Warm Assessment and Plan - Assessment and Plan (Free Text) Plan: Ischemic bowel disease 2/2 internal hernia producing bowel obstruction Current drains include: NGT (intermittent suction per surgery recs) replaced on 07/09/18 by surgery team, gastrostomy tube (replaced 06/10/18) Latest wound cultures: -Abd incision, Peg incision site => Pseudomonas aeruginosa, sensitive to Meropenem -Per ID: Meropenem 1 g q 8 h (d/c 07/11; restarted 07/12), Vancomycin 1.5 g IVPB q 12 h (d/c on 07/05/18; restarted Vanco 1 g q 12h on 07/16) -vanco trough 07/05 -- 15.1 -Repeat abd wound cx 07/12 growing Pseudomonas and Chula Lusitaniae Surgery (Dr. Harley) consulted - awaiting Dr Mccray's response on surgical intervention; f/u with surgical team regarding dispo => per surgery pt cleared to go to LTACH facility and have reversal procedure done electively; waiting to hear from surgery regarding time and date for scheduled procedure Wound vac to continuous suction, to be replaced Q72hrs Heme/onc (Dr. Cash) consulted for Fe status - repeat ferritin 185, no need for iron infusion at this time, continue to monitor Other cultures: 06/22/18: abd incision => Pseudomonas aeruginosa sensitive to Meropenem 06/22/18: Peg site => Pseudomonas aeruginosa sensitive to Meropenem 05/14/18: Peritoneal fluid => Pseudomonas aeruginosa sensitive to Meropenem 05/23/18: Wound cx => Hcula albicans 05/15/18, 05/22/18: Blood cx => no growth 05/22/18: Urine cx => no growth 05/31/18: Incision site => Enterococcus faecalis, Acinetobacter baumannii 06/03/18: Stool cxs => No Salmonella, Shigella, or Campylobacter isolates 06/13/18: Repeat wound cx => Coag-neg Staph, Enterococcus raffinosus 07/12/18 Repeat wound cx growing Pseudomonas and Chula Lusitaniae 07/14/18 repeat blood cxs NG 07/15/18 repeat blood cxs through central line NG 07/15/18 Sputum cx no growth 07/15/18 Urine cx no growth 07/16/18 blood culture x2 via PICC line grew E. faecalis sensitive to vancomycin -Echocardiogram (07/18) shows EF approximately 56%, AV mildly thickened, MV moderately thickened. No vegetation. 07/18/18: NG for 4 days Repeat cxs drawn yesterday from peripheral and PICC lines, f/u growth Antibiotics: Continue Meropenem 1 g q 8 h IVPB ; restarted as per ID due to pos abd wound cx (07/12) Vancomycin 1 g IV q 12 h started 07/16 Cipro 400 mg IV q 12h d/c'd (started 06/02/18, last day 06/16/18) Flagyl 500 mg IVPB q 8 h completed (active from 05/15/18-06/19/18) Micafungin 100mg IV Q24hrs Continue Gentamicin 0.1% TOP TID apply cream to peg tube site Per ID: c/w antibiotics for total of 2 weeks therapy F/u vitamin levels and replace as needed: Vit D < 12.8, 01755 U q1 wk x 8 wks B12 707, wnl; repeat B12 508 Folate 12.6, wnl Vit A 42, wnl Alpha vit E 5.6, wnl Zinc level wnl Vit A, B1, B6, E levels reordered on 06/15 Vit B1: inappropriately submitted, 06/01/18 valve acceptable Vit B6: 5.9, wnl Vit A, E collected Repeat Vitamin levels ordered on 07/08, f/u results 07/08: Pre-albumin 11.6, B12 508, 25-OH vit D < 12.8, vit A 33, vit E wnl As per progressive care manager recs on 07/15, feeds changed to Jevity 1.5 with goal rate 50 mL C/w Tylenol 975 mg liquid q 8h, Dilaudid 1 mg q 3 h prn, Zofran 4 mg IV q 6 h prn; Oxycodone IR 10 mg q6h prn Fever, possible sepsis - Afebrile - abdominal wound culture shows chula and pseudomonas - chest x ray - lungs clear to auscultation b/l, no acute findings - Repeat portable chest x ray 07/18 - in situ NGT, the tip of which overlies the lower mediastinum and must be advanced. no acute infiltrates. - PICC Line removed(07/17) - catheter tip culture is negative for growth - New PICC line placed by IR (Dr. Peraza) on 07/22/18 - f/u sputum cultures - normal renetta - Urine culture - no growth, final - WBC 07/25 - 13.4 -F/u Bl Doppler to rule out DVT - no DVT bilaterally -VBG/lactate level - ph: 7.45, pCO2: 39, lactate 0.9 - Normal saline @ 100mls/hr - continue tylenol for fevers -abx: Meropenem 1 g q 8 h IVPB, Vancomycin 1 g IV q 12 h - random vanc is 11.2 - blood culture through picc line grew E. faecalis sensitive to vancomycin -continue with current abx as per ID Tachycardia, persistent, hx into 110s-130s - possible etiologies include pain, infection, anxiety Today HR - 84, continue to monitor and trend Ativan prn, Dilaudid prn C/w metoprolol tartrate 12.5 mg bid via PEG tube Diarrhea- suspect 2/2 PO intake by patient C. Diff (05/22, 05/24, 05/28, 07/17) neg Stool ova and parasites (05/25/18) neg Stool leukocytes (05/25/18) neg Imodium 1 mg PO q 2h prn Anxiety Water Resource Engineer consulted - pt refusing at this time Psych consulted (Dr. Reyez) - managing Ativan, c/w prn Lexapro 20 mg GT daily (increased as per psych recs) Insomnia - Benadryl d/c'd, clinically not indicated Anemia, acute, stable, pt denies blood in stool Total 2 PRBC (on 05/16) and 4 FFP (on 05/15 and 05/16) H/H is stable Iron 16, TIBC 205, % sat 4.7, repeat ferritin 185 after Ferrlecit Monitor CBC q2d Per Dr. Cash, consider Procrit supplementation in attempt to avoid further graves sfusions if Hgb < 9; transfuse prn Thrombocytosis - suspect reactive to pain, surgery; resolved 07/25 platelets: 365 DM2, controlled From prior note: admittedly non-compliant, has not taken Januvia for 1 y Accuchecks q6h Hypoglycemic protocol ISS regular HgbA1c 5.8 Hx gastric bypass surgery Hypercholesterolemia, untx LDL < 30, HDL < 23, Chol 59, TG 195 (06/03/18) Hx gastric bypass surgery Questran 4 g PO bid via PEG tube Hx HTN, controlled Metoprolol 12.5 mg bid via PEG tube Hx Asthma - Chronic Continue to monitor Atrovent prn Continue Robitussin prn Continue Claritin 10 daily for allergy sxs Nicotine use disorder - Chronic From prior note: 1 ppd x 20 y, 1/2 ppd x 3 y C/w Nicoderm patch Electrolyte imbalance - Hypokalemia, Hypomagnesemia, resolving F/u am labs, replete as needed Mg 1.6, K 3.4 - repleted, continue to monitor PPX, Diet, Dispo Hydrocortisone 1% cream top tid for R upper inner arm macular rash - improved Vitamin A+D top q 8h prn for dry lips Saliva substitute q 6 h prn for dry mouth IVF not indicated at this time VTE ppx: Lovenox 40 subQ d, SCDs, encourage ambulation GI ppx: Protonix 40 mg IV bid, Florastor bid Code status: Full code Continue PT services, follow up recs Dispo: Continue to optimize patient for reversal surgery. Dr. Harley to coordinate with Dr. Mccray plan for intervention. Pt refusing to go to LTACH facility at this time. F/u Case Mgmt recs. Pt seen, examined with, and plan discussed with Dr. Kirby, attending physician. Morris Connolly, DO PGY-1, Water System Operator Pager #[phone] <Wesley Kirby - Last Filed: 08/04/18 13:35> Attending/Attestation - Attestation I have personally seen and examined this patient.: Yes I have fully participated in the care of the patient.: Yes I have reviewed all pertinent clinical information, including history, physical exam and plan: Yes Notes (Text): Ischemic bowel disease 2/2 internal hernia producing bowel obstruction Fever, possible sepsis Bacteremia Chronic pain syndrome blood culture through picc line grew E. faecalis sensitive to vancomycin Tachycardia, persistent, hx into 110s-130s - possible etiologies include pain, infection, anxiety Diarrhea awaiting final decision re surgery to connect stomach with bowel after infection improves
[2018-07-25] MEDS: Pantoprazole 40 mg Susp UD PO SCH (10:45)
[2018-07-25] MEDS: Cholestyramine 4 gm/Pkt UD PO SCH ×2 (10:45→18:54)
[2018-07-25] MEDS: GENTAMICIN 0.1% TOP SCH ×3 (11:00→18:17)
[2018-07-25] MEDS: Benzocaine/Menthol (Cepacol) Lozenge MT PRN ×2 (12:16→18:59)
[2018-07-25] MEDS: Loperamide Hydrochloride 1 mg/5 ml Cup PO PRN ×2 (12:19→18:58)
--- NOTE | 2018-07-25 13:55 | PCM.PYCHPN ---
Psychiatric Progress Note - Psychiatric Progress Note Patient seen today, length of contact: 15 min Patient Chief Complaint: "I am better today" Problems Identified/Issues Discussed: The pt is seen, chart reviewed, case discussed with staff. Support and psychoeducation given No SEs from medications, risks discussed. After care discussed Not suicidal, smiling, has a friend visiting Medication Change: Yes Medical Record Reviewed: Yes Mental Status Examination - Cognitive Function Orientation: Person, Place, Situation, Time Memory: Intact Attention: WNL Concentration: WNL Association: WNL Fund of Knowledge: WNL - Mood Mood: Depressed - Affect Affect: Depressed - Speech Speech: Appropriate - Formal Thought Process Formal Thought Process: No Impairment - Suicidal Ideation Suicidal Ideation: No - Homicidal Ideation Homicidal Ideation: No Goal/Treatment Plan - Goal/Treatment Plan Need for Continued Stay: Severe functional impairment, Other (medical) Progress Toward Problem(s) and Goals/Treatment Plan: Ativan to 1 mg IVP BID - no need to increase the dose Lexapro for anxiety and depression Support and psychoed Benadryl for insomnia CBT
--- NOTE | 2018-07-25 15:19 | CP.PCM.PN ---
Subjective - Date & Time of Evaluation Date of Evaluation: 07/25/18 Time of Evaluation: 14:45 Objective - Vital Signs/Intake and Output Vital Signs (last 24 hours): Temp Pulse Resp BP Pulse Ox 97.8 F 83 20 131/87 98 07/25/18 07:00 07/25/18 07:00 07/25/18 07:00 07/25/18 07:00 07/25/18 07:00 Intake and Output: 07/25/18 07/25/18 06:59 18:59 Intake Total 350 Output Total 200 Balance 150 - Medications Medications: Current Medications Acetaminophen (Tylenol 650mg/20.3ml Solution Ud) 975 mg GT Q8H PRN PRN Reason: Pain, Mild (1-3) Last Admin: 07/19/18 23:04 Dose: 975 mg Benzocaine/Menthol (Cepacol Sore Throat) 1 sravan MT Q2H PRN PRN Reason: Sore Throat Last Admin: 07/25/18 12:16 Dose: 1 sravan Calcium Acetate (Phoslo) 667 mg GT TIDCC [facility] Last Admin: 07/25/18 12:10 Dose: 667 mg Cholestyramine Resin (Questran) 4 gm PO BID [facility] Last Admin: 07/25/18 10:45 Dose: 4 gm Dextrose (Dextrose 50% Inj) 0 ml IV STAT PRN; Protocol PRN Reason: Hypoglycemia Protocol Ergocalciferol (Drisdol 50,000 Intl Units Cap) 1 cap PO Q7D [facility] Stop: 09/14/18 10:01 Last Admin: 07/20/18 10:33 Dose: 1 cap Escitalopram Oxalate (Lexapro) 20 mg GT DAILY [facility] Last Admin: 07/25/18 10:45 Dose: 20 mg Gentamicin Sulfate (Gentamicin 0.1%) 0 gm TOP TID [facility] Last Admin: 07/25/18 14:23 Dose: Not Given Glucagon (Glucagen Diagnostic Kit) 0 mg IM STAT PRN; Protocol PRN Reason: Hypoglycemia Protocol Guaifenesin (Robitussin) 100 mg PO Q4H PRN PRN Reason: Cough Last Admin: 07/24/18 18:16 Dose: 100 mg Hydromorphone HCl (Dilaudid) 1 mg IVP Q3H PRN PRN Reason: Pain, moderate (4-7) Last Admin: 07/25/18 15:09 Dose: 1 mg Hydroxyzine HCl (Atarax) 25 mg PO Q6H PRN PRN Reason: Anxiety Meropenem 1 gm/ Sodium (Chloride) 100 mls @ 100 mls/hr IVPB Q8H [facility]; Protocol Last Admin: 07/25/18 07:03 Dose: 100 mls/hr Micafungin Sodium 100 mg/ (Sodium Chloride) 100 mls @ 100 mls/hr IV Q24H [facility]; Protocol Last Admin: 07/23/18 22:00 Dose: 100 mls/hr Vancomycin HCl 1,000 mg/ (Sodium Chloride) 250 mls @ 166.6 mls/hr IVPB Q12H [facility]; Protocol Stop: 07/29/18 17:01 Last Admin: 07/25/18 04:00 Dose: 166.6 mls/hr Dextrose (Dextrose 5% In Water 1000 Ml) 1,000 mls @ 0 mls/hr IV .Q0M PRN; Protocol PRN Reason: Hypoglycemia Protocol Insulin Human Regular (Novolin R) 0 unit SC ACHS [facility]; Protocol Last Admin: 07/25/18 12:05 Dose: Not Given Ipratropium [place] (Atrovent) 0.5 mg IH RQ6 [facility] Last Admin: 07/25/18 08:02 Dose: Not Given Loperamide HCl (Imodium) 1 mg PO Q2H PRN PRN Reason: Diarrhea Last Admin: 07/25/18 12:19 Dose: 1 mg Loratadine (Claritin) 10 mg PO DAILY [facility] Last Admin: 07/25/18 10:45 Dose: 10 mg Lorazepam (Ativan) 1 mg IVP BID [facility] Last Admin: 07/25/18 10:45 Dose: 1 mg Metoprolol Tartrate (Lopressor) 12.5 mg PEG BID [facility] Last Admin: 07/25/18 12:11 Dose: 12.5 mg Nicotine (Nicoderm Cq) 1 patch TD DAILY [facility] Last Admin: 07/25/18 10:45 Dose: 1 patch Ondansetron HCl (Zofran Inj) 4 mg IVP Q6H PRN PRN Reason: Nausea/Vomiting Last Admin: 07/25/18 08:46 Dose: 4 mg Oxycodone HCl (Oxycodone Immediate Release Tab) 10 mg PO Q6 PRN PRN Reason: Pain, severe (8-10) Last Admin: 07/24/18 16:19 Dose: 10 mg Pantoprazole Sodium (Protonix Susp) 40 mg PO DAILY [facility] Last Admin: 07/25/18 10:45 Dose: 40 mg Saliva Substitute (Mouth Kote 236 Ml) 0 ml MM Q6 PRN PRN Reason: Dry mouth Trazodone HCl (Desyrel) 50 mg PO HS [facility] Last Admin: 07/24/18 21:10 Dose: 50 mg Vitamin A (Vitamin A & D Oint Ud Foilpak) 1 ea TOP Q8 PRN PRN Reason: dry lips Vitamin E (Vitamin E 400 Units Cap) 400 intlu GT DAILY [facility] Last Admin: 07/25/18 10:45 Dose: 400 intlu - Labs Labs: 07/25/18 06:54 07/25/18 06:54 PT 14.3 SECONDS (9.7-12.2) H 06/10/18 07:05 INR 1.3 06/10/18 07:05 APTT 33 SECONDS (21-34) 05/25/18 06:16
--- NOTE | 2018-07-25 16:02 | CP.PCM.PN ---
Subjective - Date & Time of Evaluation Date of Evaluation: 07/25/18 Time of Evaluation: 15:00 - Subjective Subjective: dictated Objective - Vital Signs/Intake and Output Vital Signs (last 24 hours): Temp Pulse Resp BP Pulse Ox 97.8 F 83 20 131/87 98 07/25/18 07:00 07/25/18 07:00 07/25/18 07:00 07/25/18 07:00 07/25/18 07:00 Intake and Output: 07/25/18 07/25/18 06:59 18:59 Intake Total 350 Output Total 200 Balance 150 - Medications Medications: Current Medications Acetaminophen (Tylenol 650mg/20.3ml Solution Ud) 975 mg GT Q8H PRN PRN Reason: Pain, Mild (1-3) Last Admin: 07/19/18 23:04 Dose: 975 mg Benzocaine/Menthol (Cepacol Sore Throat) 1 sravan MT Q2H PRN PRN Reason: Sore Throat Last Admin: 07/25/18 12:16 Dose: 1 sravan Calcium Acetate (Phoslo) 667 mg GT TIDCC [facility] Last Admin: 07/25/18 12:10 Dose: 667 mg Cholestyramine Resin (Questran) 4 gm PO BID [facility] Last Admin: 07/25/18 10:45 Dose: 4 gm Dextrose (Dextrose 50% Inj) 0 ml IV STAT PRN; Protocol PRN Reason: Hypoglycemia Protocol Ergocalciferol (Drisdol 50,000 Intl Units Cap) 1 cap PO Q7D [facility] Stop: 09/14/18 10:01 Last Admin: 07/20/18 10:33 Dose: 1 cap Escitalopram Oxalate (Lexapro) 20 mg GT DAILY [facility] Last Admin: 07/25/18 10:45 Dose: 20 mg Gentamicin Sulfate (Gentamicin 0.1%) 0 gm TOP TID [facility] Last Admin: 07/25/18 14:23 Dose: Not Given Glucagon (Glucagen Diagnostic Kit) 0 mg IM STAT PRN; Protocol PRN Reason: Hypoglycemia Protocol Guaifenesin (Robitussin) 100 mg PO Q4H PRN PRN Reason: Cough Last Admin: 07/24/18 18:16 Dose: 100 mg Hydromorphone HCl (Dilaudid) 1 mg IVP Q3H PRN PRN Reason: Pain, moderate (4-7) Last Admin: 07/25/18 15:09 Dose: 1 mg Hydroxyzine HCl (Atarax) 25 mg PO Q6H PRN PRN Reason: Anxiety Meropenem 1 gm/ Sodium (Chloride) 100 mls @ 100 mls/hr IVPB Q8H [facility]; Protocol Last Admin: 07/25/18 07:03 Dose: 100 mls/hr Micafungin Sodium 100 mg/ (Sodium Chloride) 100 mls @ 100 mls/hr IV Q24H [facility]; Protocol Last Admin: 07/23/18 22:00 Dose: 100 mls/hr Vancomycin HCl 1,000 mg/ (Sodium Chloride) 250 mls @ 166.6 mls/hr IVPB Q12H [facility]; Protocol Stop: 07/29/18 17:01 Last Admin: 07/25/18 04:00 Dose: 166.6 mls/hr Dextrose (Dextrose 5% In Water 1000 Ml) 1,000 mls @ 0 mls/hr IV .Q0M PRN; Protocol PRN Reason: Hypoglycemia Protocol Insulin Human Regular (Novolin R) 0 unit SC ACHS [facility]; Protocol Last Admin: 07/25/18 12:05 Dose: Not Given Ipratropium [place] (Atrovent) 0.5 mg IH RQ6 [facility] Last Admin: 07/25/18 08:02 Dose: Not Given Loperamide HCl (Imodium) 1 mg PO Q2H PRN PRN Reason: Diarrhea Last Admin: 07/25/18 12:19 Dose: 1 mg Loratadine (Claritin) 10 mg PO DAILY [facility] Last Admin: 07/25/18 10:45 Dose: 10 mg Lorazepam (Ativan) 1 mg IVP BID [facility] Last Admin: 07/25/18 10:45 Dose: 1 mg Metoprolol Tartrate (Lopressor) 12.5 mg PEG BID [facility] Last Admin: 07/25/18 12:11 Dose: 12.5 mg Nicotine (Nicoderm Cq) 1 patch TD DAILY [facility] Last Admin: 07/25/18 10:45 Dose: 1 patch Ondansetron HCl (Zofran Inj) 4 mg IVP Q6H PRN PRN Reason: Nausea/Vomiting Last Admin: 07/25/18 08:46 Dose: 4 mg Oxycodone HCl (Oxycodone Immediate Release Tab) 10 mg PO Q6 PRN PRN Reason: Pain, severe (8-10) Last Admin: 07/24/18 16:19 Dose: 10 mg Pantoprazole Sodium (Protonix Susp) 40 mg PO DAILY [facility] Last Admin: 07/25/18 10:45 Dose: 40 mg Saliva Substitute (Mouth Kote 236 Ml) 0 ml MM Q6 PRN PRN Reason: Dry mouth Trazodone HCl (Desyrel) 50 mg PO HS [facility] Last Admin: 07/24/18 21:10 Dose: 50 mg Vitamin A (Vitamin A & D Oint Ud Foilpak) 1 ea TOP Q8 PRN PRN Reason: dry lips Vitamin E (Vitamin E 400 Units Cap) 400 intlu GT DAILY [facility] Last Admin: 07/25/18 10:45 Dose: 400 intlu - Labs Labs: 07/25/18 06:54 07/25/18 06:54 PT 14.3 SECONDS (9.7-12.2) H 06/10/18 07:05 INR 1.3 06/10/18 07:05 APTT 33 SECONDS (21-34) 05/25/18 06:16
[2018-07-25] MEDS: guaiFENesin 100 mg/5 ml Syrup UD PO PRN (18:58)
[2018-07-25] MEDS: Acetaminophen 650mg/20.3ml solution UD GT PRN (18:58)
--- NOTE | 2018-07-25 22:09 | CP.PCM.PN ---
Subjective - Date & Time of Evaluation Date of Evaluation: 07/25/18 Time of Evaluation: 19:00 - Subjective Subjective: No complaints. Objective - Vital Signs/Intake and Output Vital Signs (last 24 hours): Temp Pulse Resp BP Pulse Ox 98 F 120 H 20 97/61 L 96 07/25/18 17:38 07/25/18 17:38 07/25/18 17:38 07/25/18 17:38 07/25/18 17:38 Intake and Output: 07/25/18 07/26/18 18:59 06:59 Intake Total 550 Output Total 550 Balance 0 - Medications Medications: Current Medications Acetaminophen (Tylenol 650mg/20.3ml Solution Ud) 975 mg GT Q8H PRN PRN Reason: Pain, Mild (1-3) Last Admin: 07/25/18 18:58 Dose: 975 mg Benzocaine/Menthol (Cepacol Sore Throat) 1 sravan MT Q2H PRN PRN Reason: Sore Throat Last Admin: 07/25/18 18:59 Dose: 1 sravan Calcium Acetate (Phoslo) 667 mg GT TIDCC [facility] Last Admin: 07/25/18 17:54 Dose: 667 mg Cholestyramine Resin (Questran) 4 gm PO BID [facility] Last Admin: 07/25/18 18:54 Dose: 4 gm Dextrose (Dextrose 50% Inj) 0 ml IV STAT PRN; Protocol PRN Reason: Hypoglycemia Protocol Ergocalciferol (Drisdol 50,000 Intl Units Cap) 1 cap PO Q7D [facility] Stop: 09/14/18 10:01 Last Admin: 07/20/18 10:33 Dose: 1 cap Escitalopram Oxalate (Lexapro) 20 mg GT DAILY [facility] Last Admin: 07/25/18 10:45 Dose: 20 mg Gentamicin Sulfate (Gentamicin 0.1%) 0 gm TOP TID [facility] Last Admin: 07/25/18 14:23 Dose: Not Given Glucagon (Glucagen Diagnostic Kit) 0 mg IM STAT PRN; Protocol PRN Reason: Hypoglycemia Protocol Guaifenesin (Robitussin) 100 mg PO Q4H PRN PRN Reason: Cough Last Admin: 07/25/18 18:58 Dose: 100 mg Hydromorphone HCl (Dilaudid) 1 mg IVP Q3H PRN PRN Reason: Pain, moderate (4-7) Last Admin: 07/25/18 21:23 Dose: 1 mg Hydroxyzine HCl (Atarax) 25 mg PO Q6H PRN PRN Reason: Anxiety Meropenem 1 gm/ Sodium (Chloride) 100 mls @ 100 mls/hr IVPB Q8H [facility]; Protocol Last Admin: 07/25/18 15:54 Dose: 100 mls/hr Micafungin Sodium 100 mg/ (Sodium Chloride) 100 mls @ 100 mls/hr IV Q24H [facility]; Protocol Last Admin: 07/23/18 22:00 Dose: 100 mls/hr Vancomycin HCl 1,000 mg/ (Sodium Chloride) 250 mls @ 166.6 mls/hr IVPB Q12H [facility]; Protocol Stop: 07/29/18 17:01 Last Admin: 07/25/18 17:55 Dose: 166.6 mls/hr Dextrose (Dextrose 5% In Water 1000 Ml) 1,000 mls @ 0 mls/hr IV .Q0M PRN; Protocol PRN Reason: Hypoglycemia Protocol Insulin Human Regular (Novolin R) 0 unit SC ACHS [facility]; Protocol Last Admin: 07/25/18 21:37 Dose: Not Given Ipratropium [place] (Atrovent) 0.5 mg IH RQ6 [facility] Last Admin: 07/25/18 08:02 Dose: Not Given Loperamide HCl (Imodium) 1 mg PO Q2H PRN PRN Reason: Diarrhea Last Admin: 07/25/18 18:58 Dose: 1 mg Loratadine (Claritin) 10 mg PO DAILY [facility] Last Admin: 07/25/18 10:45 Dose: 10 mg Lorazepam (Ativan) 1 mg IVP BID [facility] Last Admin: 07/25/18 18:54 Dose: 1 mg Metoprolol Tartrate (Lopressor) 12.5 mg PEG BID [facility] Last Admin: 07/25/18 18:54 Dose: 12.5 mg Nicotine (Nicoderm Cq) 1 patch TD DAILY [facility] Last Admin: 07/25/18 10:45 Dose: 1 patch Ondansetron HCl (Zofran Inj) 4 mg IVP Q6H PRN PRN Reason: Nausea/Vomiting Last Admin: 07/25/18 08:46 Dose: 4 mg Oxycodone HCl (Oxycodone Immediate Release Tab) 10 mg PO Q6 PRN PRN Reason: Pain, severe (8-10) Last Admin: 07/24/18 16:19 Dose: 10 mg Pantoprazole Sodium (Protonix Susp) 40 mg PO DAILY [facility] Last Admin: 07/25/18 10:45 Dose: 40 mg Saliva Substitute (Mouth Kote 236 Ml) 0 ml MM Q6 PRN PRN Reason: Dry mouth Trazodone HCl (Desyrel) 50 mg PO HS [facility] Last Admin: 07/24/18 21:10 Dose: 50 mg Vitamin A (Vitamin A & D Oint Ud Foilpak) 1 ea TOP Q8 PRN PRN Reason: dry lips Vitamin E (Vitamin E 400 Units Cap) 400 intlu GT DAILY [facility] Last Admin: 07/25/18 10:45 Dose: 400 intlu - Labs Labs: 07/25/18 06:54 07/25/18 06:54 PT 14.3 SECONDS (9.7-12.2) H 06/10/18 07:05 INR 1.3 06/10/18 07:05 APTT 33 SECONDS (21-34) 05/25/18 06:16 - Head Exam Head Exam: ATRAUMATIC - Eye Exam Eye Exam: Normal appearance - ENT Exam ENT Exam: Mucous Membranes Dry - Respiratory Exam Respiratory Exam: NORMAL BREATHING PATTERN - Cardiovascular Exam Cardiovascular Exam: +S1, +S2 - GI/Abdominal Exam GI & Abdominal Exam: Normal Bowel Sounds Assessment and Plan (1) Anemia Assessment & Plan: iron deficiency anemia resolved s/p IV iron anemia of chronic disease; will consider Procrit supplementation in an attempt to avoid further transfusions if hgb < 9 FOBT positive transfuse PRN Status: Acute
[2018-07-26] MEDS: Micafungin 100 MG in Sodium Chloride 0.9% 100 ML IV SCH ×3 (00:11→22:21)
[2018-07-26] MEDS: HYDROmorphone 1 mg/ml ISec IVP PRN ×8 (00:15→22:22)
--- NOTE | 2018-07-26 00:57 | PN ---
DATE: 07/25/2018 SUBJECTIVE: The patient is awake and alert. She denies any complaints. She said they changed the vacuum as it was not draining, it was obstructed. She is on gentamicin cream, they did not put it, will reorder that. There is some leakage from the GT tube site and that stays there and may get infected. ASSESSMENT AND PLAN: She is still on meropenem and vancomycin and her last dose 07/16/2018 Enterococcus. So, we are going to give until 07/30/2018 to complete two weeks of treatment and then she will be off antibiotics and to continue with the wound VAC and the patient needs surgery. We will follow. She wants to get the gentamicin cream to the area because she thinks it is infected, so we will renew it at this time. Guero Rivera MD
[2018-07-26] MEDS: Meropenem 1 GM in Sodium Chloride 0.9% 100 ML IVPB SCH ×3 (01:33→16:19)
[2018-07-26] MEDS: Ipratropium 0.02% Inhal Soln (0.5 mg/2.5 ml) UD IH SCH ×2 (02:00→13:38)
[2018-07-26 07:22] LABS: BASO # 0.1 K/uL (0.0-0.2); BASO % 0.6 % (0.0-2.0); EOS # 1.2 K/uL (0.0-0.7); EOS % 10.2 % (0.0-4.0); HEMOGLOBIN 10.2 g/dL (11.0-16.0); LYMPH % 16.8 % (20.0-40.0); MEAN CELL VOLUME 86.6 fL (81.0-99.0); MEAN CORPUSCULAR HEMOGLOBIN 28.8 pg (27.0-31.0); MEAN CORPUSCULAR HGB CONC 33.3 g/dL (33.0-37.0); MEAN PLATELET VOLUME 6.8 fL (7.2-11.7); MONO # 0.5 K/uL (0.0-0.8); MONO % 4.6 % (0.0-10.0); NEUT % 67.8 % (50.0-75.0); RBC 3.53 Mil/uL (3.80-5.20); RED CELL DISTRIBUTION WIDTH 18.2 % (11.5-14.5); WHITE BLOOD COUNT 11.8 K/uL (4.8-10.8)
[2018-07-26] MEDS: (Novolin R) Insulin Human Regular 100 units/ml vial SC SCH ×4 (07:37→21:39)
[2018-07-26 07:38] LABS: ALT/SGPT 33 U/L (9-52); AST/SGOT 33 U/L (14-36); BLOOD UREA NITROGEN 11 mg/dL (7-17); CALCIUM 8.4 mg/dl (8.6-10.4); GFR NON-AFRICAN AMERICAN > 60
[2018-07-26] MEDS: GENTAMICIN 0.1% TOP SCH ×3 (10:14→17:49)
[2018-07-26] MEDS: Pantoprazole 40 mg Susp UD PO SCH (10:21)
[2018-07-26] MEDS: Loperamide Hydrochloride 1 mg/5 ml Cup PO PRN ×2 (10:24→17:49)
[2018-07-26] MEDS: guaiFENesin 100 mg/5 ml Syrup UD PO PRN ×2 (10:24→17:35)
[2018-07-26] MEDS: Benzocaine/Menthol (Cepacol) Lozenge MT PRN ×2 (10:24→17:49)
[2018-07-26] MEDS: Cholestyramine 4 gm/Pkt UD PO SCH ×2 (10:40→17:49)
--- NOTE | 2018-07-26 14:58 | CP.PCM.PN ---
Subjective - Date & Time of Evaluation Date of Evaluation: 07/26/18 Time of Evaluation: 14:30 - Subjective Subjective: dictated Objective - Vital Signs/Intake and Output Vital Signs (last 24 hours): Temp Pulse Resp BP Pulse Ox 98.8 F 134 H 18 116/75 99 07/26/18 07:00 07/26/18 07:00 07/26/18 07:00 07/26/18 07:00 07/26/18 07:00 Intake and Output: 07/26/18 07/26/18 06:59 18:59 Intake Total 750 Output Total 250 Balance 500 - Medications Medications: Current Medications Acetaminophen (Tylenol 650mg/20.3ml Solution Ud) 975 mg GT Q8H PRN PRN Reason: Pain, Mild (1-3) Last Admin: 07/25/18 18:58 Dose: 975 mg Benzocaine/Menthol (Cepacol Sore Throat) 1 sravan MT Q2H PRN PRN Reason: Sore Throat Last Admin: 07/26/18 10:24 Dose: 1 sravan Calcium Acetate (Phoslo) 667 mg GT TIDCC [facility] Last Admin: 07/26/18 13:10 Dose: 667 mg Cholestyramine Resin (Questran) 4 gm PO BID [facility] Last Admin: 07/26/18 10:40 Dose: 4 gm Dextrose (Dextrose 50% Inj) 0 ml IV STAT PRN; Protocol PRN Reason: Hypoglycemia Protocol Ergocalciferol (Drisdol 50,000 Intl Units Cap) 1 cap PO Q7D [facility] Stop: 09/14/18 10:01 Last Admin: 07/20/18 10:33 Dose: 1 cap Escitalopram Oxalate (Lexapro) 20 mg GT DAILY [facility] Last Admin: 07/26/18 10:21 Dose: 20 mg Gentamicin Sulfate (Gentamicin 0.1%) 0 gm TOP TID [facility] Last Admin: 07/26/18 13:24 Dose: Not Given Glucagon (Glucagen Diagnostic Kit) 0 mg IM STAT PRN; Protocol PRN Reason: Hypoglycemia Protocol Guaifenesin (Robitussin) 100 mg PO Q4H PRN PRN Reason: Cough Last Admin: 07/26/18 10:24 Dose: 100 mg Hydromorphone HCl (Dilaudid) 1 mg IVP Q3H PRN PRN Reason: Pain, moderate (4-7) Last Admin: 07/26/18 13:10 Dose: 1 mg Hydroxyzine HCl (Atarax) 25 mg PO Q6H PRN PRN Reason: Anxiety Last Admin: 07/26/18 10:20 Dose: 25 mg Meropenem 1 gm/ Sodium (Chloride) 100 mls @ 100 mls/hr IVPB Q8H [facility]; Protocol Last Admin: 07/26/18 10:15 Dose: 100 mls/hr Micafungin Sodium 100 mg/ (Sodium Chloride) 100 mls @ 100 mls/hr IV Q24H [facility]; Protocol Last Admin: 07/26/18 00:12 Dose: 100 mls/hr Vancomycin HCl 1,000 mg/ (Sodium Chloride) 250 mls @ 166.6 mls/hr IVPB Q12H [facility]; Protocol Stop: 07/29/18 17:01 Last Admin: 07/26/18 04:53 Dose: 166.6 mls/hr Dextrose (Dextrose 5% In Water 1000 Ml) 1,000 mls @ 0 mls/hr IV .Q0M PRN; Protocol PRN Reason: Hypoglycemia Protocol Insulin Human Regular (Novolin R) 0 unit SC ACHS [facility]; Protocol Last Admin: 07/26/18 13:24 Dose: Not Given Ipratropium [place] (Atrovent) 0.5 mg IH RQ6 [facility] Last Admin: 07/26/18 13:38 Dose: 0.5 mg Loperamide HCl (Imodium) 1 mg PO Q2H PRN PRN Reason: Diarrhea Last Admin: 07/26/18 10:24 Dose: 1 mg Loratadine (Claritin) 10 mg PO DAILY [facility] Last Admin: 07/26/18 10:13 Dose: 10 mg Lorazepam (Ativan) 1 mg IVP BID [facility] Last Admin: 07/26/18 10:34 Dose: 1 mg Metoprolol Tartrate (Lopressor) 12.5 mg PEG BID [facility] Last Admin: 07/26/18 10:16 Dose: 12.5 mg Nicotine (Nicoderm Cq) 1 patch TD DAILY [facility] Last Admin: 07/26/18 10:20 Dose: 1 patch Ondansetron HCl (Zofran Inj) 4 mg IVP Q6H PRN PRN Reason: Nausea/Vomiting Last Admin: 07/26/18 10:24 Dose: 4 mg Oxycodone HCl (Oxycodone Immediate Release Tab) 10 mg PO Q6 PRN PRN Reason: Pain, severe (8-10) Last Admin: 07/24/18 16:19 Dose: 10 mg Pantoprazole Sodium (Protonix Susp) 40 mg PO DAILY [facility] Last Admin: 07/26/18 10:21 Dose: 40 mg Saliva Substitute (Mouth Kote 236 Ml) 0 ml MM Q6 PRN PRN Reason: Dry mouth Trazodone HCl (Desyrel) 50 mg PO [facility] Last Admin: 07/25/18 22:14 Dose: 50 mg Vitamin A (Vitamin A & D Oint Ud Foilpak) 1 ea TOP Q8 PRN PRN Reason: dry lips Vitamin E (Vitamin E 400 Units Cap) 400 intlu GT DAILY [facility] Last Admin: 07/26/18 10:16 Dose: 400 intlu - Labs Labs: 07/26/18 07:07 07/26/18 07:07 PT 14.3 SECONDS (9.7-12.2) H 06/10/18 07:05 INR 1.3 06/10/18 07:05 APTT 33 SECONDS (21-34) 05/25/18 06:16
--- NOTE | 2018-07-26 15:47 | CP.PCM.PN ---
<Beverly Lee - Last Filed: 07/26/18 16:34> Subjective - Date & Time of Evaluation Date of Evaluation: 07/26/18 Time of Evaluation: 10:10 - Subjective Subjective: Pt examined at bedside. No acute events overnight. Pt is very upset and agitated; threatening to leave because she feels she has not gotten a straight answer from surgery regarding a definitive date for surgical revision. After discussion and a confirmed date of August 08 w/ Dr. Harley and Mahendra, pt agreed to stay. Denies chest pain, SOB, N/V. Objective - Vital Signs/Intake and Output Vital Signs (last 24 hours): Temp Pulse Resp BP Pulse Ox 98.8 F 134 H 18 116/75 99 07/26/18 07:00 07/26/18 07:00 07/26/18 07:00 07/26/18 07:00 07/26/18 07:00 Intake and Output: 07/26/18 07/26/18 06:59 18:59 Intake Total 750 Output Total 250 Balance 500 - Medications Medications: Current Medications Acetaminophen (Tylenol 650mg/20.3ml Solution Ud) 975 mg GT Q8H PRN PRN Reason: Pain, Mild (1-3) Last Admin: 07/25/18 18:58 Dose: 975 mg Benzocaine/Menthol (Cepacol Sore Throat) 1 sravan MT Q2H PRN PRN Reason: Sore Throat Last Admin: 07/26/18 10:24 Dose: 1 sravan Calcium Acetate (Phoslo) 667 mg GT TIDCC [facility] Last Admin: 07/26/18 13:10 Dose: 667 mg Cholestyramine Resin (Questran) 4 gm PO BID [facility] Last Admin: 07/26/18 10:40 Dose: 4 gm Dextrose (Dextrose 50% Inj) 0 ml IV STAT PRN; Protocol PRN Reason: Hypoglycemia Protocol Ergocalciferol (Drisdol 50,000 Intl Units Cap) 1 cap PO Q7D [facility] Stop: 09/14/18 10:01 Last Admin: 07/20/18 10:33 Dose: 1 cap Escitalopram Oxalate (Lexapro) 20 mg GT DAILY [facility] Last Admin: 07/26/18 10:21 Dose: 20 mg Gentamicin Sulfate (Gentamicin 0.1%) 0 gm TOP TID [facility] Last Admin: 07/26/18 13:24 Dose: Not Given Glucagon (Glucagen Diagnostic Kit) 0 mg IM STAT PRN; Protocol PRN Reason: Hypoglycemia Protocol Guaifenesin (Robitussin) 100 mg PO Q4H PRN PRN Reason: Cough Last Admin: 07/26/18 10:24 Dose: 100 mg Hydromorphone HCl (Dilaudid) 1 mg IVP Q3H PRN PRN Reason: Pain, moderate (4-7) Last Admin: 07/26/18 13:10 Dose: 1 mg Hydroxyzine HCl (Atarax) 25 mg PO Q6H PRN PRN Reason: Anxiety Last Admin: 07/26/18 10:20 Dose: 25 mg Meropenem 1 gm/ Sodium (Chloride) 100 mls @ 100 mls/hr IVPB Q8H [facility]; Protocol Last Admin: 07/26/18 10:15 Dose: 100 mls/hr Micafungin Sodium 100 mg/ (Sodium Chloride) 100 mls @ 100 mls/hr IV Q24H [facility]; Protocol Last Admin: 07/26/18 00:12 Dose: 100 mls/hr Vancomycin HCl 1,000 mg/ (Sodium Chloride) 250 mls @ 166.6 mls/hr IVPB Q12H [facility]; Protocol Stop: 07/29/18 17:01 Last Admin: 07/26/18 04:53 Dose: 166.6 mls/hr Dextrose (Dextrose 5% In Water 1000 Ml) 1,000 mls @ 0 mls/hr IV .Q0M PRN; Protocol PRN Reason: Hypoglycemia Protocol Insulin Human Regular (Novolin R) 0 unit SC ACHS [facility]; Protocol Last Admin: 07/26/18 13:24 Dose: Not Given Ipratropium [place] (Atrovent) 0.5 mg IH RQ6 [facility] Last Admin: 07/26/18 13:38 Dose: 0.5 mg Loperamide HCl (Imodium) 1 mg PO Q2H PRN PRN Reason: Diarrhea Last Admin: 07/26/18 10:24 Dose: 1 mg Loratadine (Claritin) 10 mg PO DAILY [facility] Last Admin: 07/26/18 10:13 Dose: 10 mg Lorazepam (Ativan) 1 mg IVP BID [facility] Last Admin: 07/26/18 10:34 Dose: 1 mg Metoprolol Tartrate (Lopressor) 12.5 mg PEG BID [facility] Last Admin: 07/26/18 10:16 Dose: 12.5 mg Nicotine (Nicoderm Cq) 1 patch TD DAILY [facility] Last Admin: 07/26/18 10:20 Dose: 1 patch Ondansetron HCl (Zofran Inj) 4 mg IVP Q6H PRN PRN Reason: Nausea/Vomiting Last Admin: 07/26/18 10:24 Dose: 4 mg Oxycodone HCl (Oxycodone Immediate Release Tab) 10 mg PO Q6 PRN PRN Reason: Pain, severe (8-10) Last Admin: 07/24/18 16:19 Dose: 10 mg Pantoprazole Sodium (Protonix Susp) 40 mg PO DAILY [facility] Last Admin: 07/26/18 10:21 Dose: 40 mg Saliva Substitute (Mouth Kote 236 Ml) 0 ml MM Q6 PRN PRN Reason: Dry mouth Trazodone HCl (Desyrel) 50 mg PO HS [facility] Last Admin: 07/25/18 22:14 Dose: 50 mg Vitamin A (Vitamin A & D Oint Ud Foilpak) 1 ea TOP Q8 PRN PRN Reason: dry lips Vitamin E (Vitamin E 400 Units Cap) 400 intlu GT DAILY [facility] Last Admin: 07/26/18 10:16 Dose: 400 intlu - Labs Labs: 07/26/18 07:07 07/26/18 07:07 PT 14.3 SECONDS (9.7-12.2) H 06/10/18 07:05 INR 1.3 06/10/18 07:05 APTT 33 SECONDS (21-34) 05/25/18 06:16 - Constitutional Appears: No Acute Distress, Agitated - Head Exam Head Exam: ATRAUMATIC, NORMAL INSPECTION, NORMOCEPHALIC - Eye Exam Eye Exam: EOMI, Normal appearance - ENT Exam ENT Exam: Mucous Membranes Moist, Normal Exam Additional comments: NGT right nare - Neck Exam Neck Exam: Normal Inspection - Respiratory Exam Respiratory Exam: Clear to Ausculation Bilateral, NORMAL BREATHING PATTERN - Cardiovascular Exam Cardiovascular Exam: Tachycardia, REGULAR RHYTHM, +S1, +S2 - GI/Abdominal Exam GI & Abdominal Exam: Soft, Normal Bowel Sounds. absent: Tenderness Additional comments: 38 year old female admitted for complications s/p gastric and bowel resection f or internal hernia w/ bowel ischemia Surgical correction/revision s/p resection -Scheduled for August 08 with Jonas -NPO -tube feeds, Jevity 1.5 -NGT, intermittent suction -wound vac -surgery, Dr. Harley Bacteremia/ -blood cx(07/16) Enterococcus Faecalis -treated and repeat cultures negative -echo neg for vegetations -vanco/micafungin/merrem -ID, Dr. Rivera Anemia of chronic disease -hgb 10.2 today -iron deficiency anemia resolved s/p IV iron -monitor and transfuse as needed -procrit if hgb<9 -heme/onc, Dr. Cash Anxiety -lexapro 20mg -ativan 1mg BID -trazodone 50mg hs <Franki Denise - Last Filed: 07/27/18 20:14> Objective - Vital Signs/Intake and Output Vital Signs (last 24 hours): Temp Pulse Resp BP Pulse Ox 98.4 F 112 H 20 120/71 94 L 07/27/18 15:00 07/27/18 15:00 07/27/18 15:00 07/27/18 15:00 07/27/18 15:00 Intake and Output: 07/27/18 07/28/18 18:59 06:59 Intake Total 750 Output Total 200 Balance 550 - Medications Medications: Current Medications Acetaminophen (Tylenol 650mg/20.3ml Solution Ud) 975 mg GT Q8H PRN PRN Reason: Pain, Mild (1-3) Last Admin: 07/25/18 18:58 Dose: 975 mg Benzocaine/Menthol (Cepacol Sore Throat) 1 sravan MT Q2H PRN PRN Reason: Sore Throat Last Admin: 07/27/18 20:07 Dose: 1 sravan Calcium Acetate (Phoslo) 667 mg GT TIDCC [facility] Last Admin: 07/27/18 18:02 Dose: 667 mg Cholestyramine Resin (Questran) 4 gm PO BID [facility] Last Admin: 07/27/18 18:02 Dose: 4 gm Dextrose (Dextrose 50% Inj) 0 ml IV STAT PRN; Protocol PRN Reason: Hypoglycemia Protocol Ergocalciferol (Drisdol 50,000 Intl Units Cap) 1 cap PO Q7D [facility] Stop: 09/14/18 10:01 Last Admin: 07/27/18 11:00 Dose: 1 cap Escitalopram Oxalate (Lexapro) 20 mg GT DAILY [facility] Last Admin: 07/27/18 10:55 Dose: 20 mg Fluticasone Propionate (Flonase) 2 spr BRITTANY DAILY [facility] Last Admin: 07/27/18 15:03 Dose: 2 sprays Gentamicin Sulfate (Gentamicin 0.1%) 0 gm TOP TID [facility] Last Admin: 07/27/18 18:07 Dose: 1 applic Glucagon (Glucagen Diagnostic Kit) 0 mg IM STAT PRN; Protocol PRN Reason: Hypoglycemia Protocol Guaifenesin (Robitussin) 100 mg PO Q4H PRN PRN Reason: Cough Last Admin: 07/27/18 18:09 Dose: 100 mg Hydromorphone HCl (Dilaudid) 1 mg IVP Q3H PRN PRN Reason: Pain, moderate (4-7) Last Admin: 07/27/18 20:08 Dose: 1 mg Hydroxyzine HCl (Atarax) 25 mg PO Q6H PRN PRN Reason: Anxiety Last Admin: 07/26/18 10:20 Dose: 25 mg Meropenem 1 gm/ Sodium (Chloride) 100 mls @ 100 mls/hr IVPB Q8H [facility]; Protocol Last Admin: 07/27/18 15:22 Dose: 100 mls/hr Micafungin Sodium 100 mg/ (Sodium Chloride) 100 mls @ 100 mls/hr IV Q24H [facility]; Protocol Last Admin: 07/26/18 22:21 Dose: 100 mls/hr Vancomycin HCl 1,000 mg/ (Sodium Chloride) 250 mls @ 166.6 mls/hr IVPB Q12H [facility]; Protocol Stop: 07/29/18 17:01 Last Admin: 07/27/18 17:09 Dose: 166.6 mls/hr Dextrose (Dextrose 5% In Water 1000 Ml) 1,000 mls @ 0 mls/hr IV .Q0M PRN; Protocol PRN Reason: Hypoglycemia Protocol Insulin Human Regular (Novolin R) 0 unit SC ACHS [facility]; Protocol Last Admin: 07/27/18 17:25 Dose: Not Given Ipratropium [place] (Atrovent) 0.5 mg IH RQ6 [facility] Last Admin: 07/27/18 13:22 Dose: 0.5 mg Loperamide HCl (Imodium) 1 mg PO Q2H PRN PRN Reason: Diarrhea Last Admin: 07/27/18 20:07 Dose: 1 mg Loratadine (Claritin) 10 mg PO DAILY [facility] Last Admin: 07/27/18 11:04 Dose: 10 mg Lorazepam (Ativan) 1 mg IVP BID [facility] Last Admin: 07/27/18 18:01 Dose: 1 mg Metoprolol Tartrate (Lopressor) 12.5 mg PEG BID [facility] Last Admin: 07/27/18 18:03 Dose: 12.5 mg Nicotine (Nicoderm Cq) 1 patch TD DAILY [facility] Last Admin: 07/27/18 10:55 Dose: 1 patch Ondansetron HCl (Zofran Inj) 4 mg IVP Q6H PRN PRN Reason: Nausea/Vomiting Last Admin: 07/27/18 18:01 Dose: 4 mg Oxycodone HCl (Oxycodone Immediate Release Tab) 10 mg PO Q6 PRN PRN Reason: Pain, severe (8-10) Last Admin: 07/27/18 18:01 Dose: 10 mg Pantoprazole Sodium (Protonix Susp) 40 mg PO DAILY [facility] Last Admin: 07/27/18 11:00 Dose: 40 mg Saliva Substitute (Mouth Kote 236 Ml) 0 ml MM Q6 PRN PRN Reason: Dry mouth Trazodone HCl (Desyrel) 50 mg PO HS [facility] Last Admin: 07/26/18 22:21 Dose: 50 mg Vitamin A (Vitamin A & D Oint Ud Foilpak) 1 ea TOP Q8 PRN PRN Reason: dry lips Vitamin E (Vitamin E 400 Units Cap) 400 intlu GT DAILY [facility] Last Admin: 07/27/18 10:55 Dose: 400 intlu - Labs Labs: 07/27/18 07:25 07/27/18 07:25 PT 14.3 SECONDS (9.7-12.2) H 06/10/18 07:05 INR 1.3 06/10/18 07:05 APTT 33 SECONDS (21-34) 05/25/18 06:16 Attending/Attestation - Attestation I have personally seen and examined this patient.: Yes I have fully participated in the care of the patient.: Yes I have reviewed all pertinent clinical information, including history, physical exam and plan: Yes Notes (Text): 07/27/18 20:11 This is a late entry. Care of this patient was gone over in detail with the resident. Please note on 07/26/18 at time of my exam in the morning 10:00 AM, patient was threatening to sign AMA but decided to stay after Surgery Team scheduled surgery for 08/08/18. Franki Denise D.O.
--- NOTE | 2018-07-26 17:08 | PN ---
DATE: 07/26/2018 SUBJECTIVE: The patient is feeling little better. They have decided about the surgery to begin on 08/08/2018, should be done with her antibiotics on 07/30/2018. So, I am hoping that she remains stable and without any infections and we will follow. PHYSICAL EXAMINATION: VITAL SIGNS: At this time, her vitals are stable. She has a PICC line. T-max is 98, but heart rate is 134, I am not sure why at 134, blood pressure is 116/75, and respirations are 18. HEENT: Head is atraumatic, normocephalic. NECK: Supple. LUNGS: Clear. HEART: S1 and S2 regular. ABDOMEN: There is a small area which remains with drainage. MEDICATIONS: She is on vancomycin 1 g every 12 hours, she is on meropenem, and she is on micafungin. ASSESSMENT AND PLAN: She has been ambulating. So, her meds need to be reconsidered. Primary is following. Guero Rivera MD
[2018-07-26] MEDS: oxyCODONE 10 mg Immediate Release Tab PO PRN (17:47)
[2018-07-27] MEDS: Meropenem 1 GM in Sodium Chloride 0.9% 100 ML IVPB SCH ×3 (00:02→15:22)
[2018-07-27] MEDS: HYDROmorphone 1 mg/ml ISec IVP PRN ×8 (01:18→23:04)
[2018-07-27] MEDS: Ipratropium 0.02% Inhal Soln (0.5 mg/2.5 ml) UD IH SCH ×4 (02:44→20:34)
[2018-07-27 07:43] LABS: BASO # 0.1 K/uL (0.0-0.2); BASO % 0.6 % (0.0-2.0); EOS # 1.3 K/uL (0.0-0.7); EOS % 15.5 % (0.0-4.0); HEMOGLOBIN 8.9 g/dL (11.0-16.0); LYMPH # 2.5 K/uL (1.0-4.3); LYMPH % 30.7 % (20.0-40.0); MEAN CELL VOLUME 85.5 fL (81.0-99.0); MEAN CORPUSCULAR HEMOGLOBIN 28.1 pg (27.0-31.0); MEAN CORPUSCULAR HGB CONC 32.9 g/dL (33.0-37.0); MEAN PLATELET VOLUME 7.1 fL (7.2-11.7); MONO # 0.5 K/uL (0.0-0.8); NEUT # 3.8 K/uL (1.8-7.0); NEUT % 47.2 % (50.0-75.0); RBC 3.18 Mil/uL (3.80-5.20); WHITE BLOOD COUNT 8.1 K/uL (4.8-10.8)
[2018-07-27] MEDS: (Novolin R) Insulin Human Regular 100 units/ml vial SC SCH ×3 (07:43→21:57)
[2018-07-27 08:39] LABS: ALB/GLOB RATIO 0.9 (1.0-2.1); ALBUMIN 2.6 g/dL (3.5-5.0); ALT/SGPT 28 U/L (9-52); AST/SGOT 17 U/L (14-36); BLOOD UREA NITROGEN 10 mg/dL (7-17); CALCIUM 8.3 mg/dl (8.6-10.4); GFR NON-AFRICAN AMERICAN > 60
[2018-07-27] MEDS: Cholestyramine 4 gm/Pkt UD PO SCH ×2 (10:55→18:02)
[2018-07-27] MEDS: Ergocalciferol 50,000 Intl Units Cap PO SCH (11:00)
[2018-07-27] MEDS: GENTAMICIN 0.1% TOP SCH ×3 (11:00→18:07)
[2018-07-27] MEDS: Pantoprazole 40 mg Susp UD PO SCH (11:00)
[2018-07-27] MEDS: guaiFENesin 100 mg/5 ml Syrup UD PO PRN ×2 (11:16→18:09)
[2018-07-27] MEDS: Benzocaine/Menthol (Cepacol) Lozenge MT PRN ×3 (11:17→20:07)
--- NOTE | 2018-07-27 11:55 | CP.PCM.PN ---
Subjective - Date & Time of Evaluation Date of Evaluation: 07/26/18 Time of Evaluation: 18:15 - Subjective Subjective: No complaints. Objective - Vital Signs/Intake and Output Vital Signs (last 24 hours): Temp Pulse Resp BP Pulse Ox 98.3 F 80 20 130/87 93 L 07/27/18 07:00 07/27/18 07:00 07/27/18 07:00 07/27/18 07:00 07/27/18 07:00 Intake and Output: 07/27/18 07/27/18 06:59 18:59 Intake Total 600 Output Total 200 Balance 400 - Medications Medications: Current Medications Acetaminophen (Tylenol 650mg/20.3ml Solution Ud) 975 mg GT Q8H PRN PRN Reason: Pain, Mild (1-3) Last Admin: 07/25/18 18:58 Dose: 975 mg Benzocaine/Menthol (Cepacol Sore Throat) 1 sravan MT Q2H PRN PRN Reason: Sore Throat Last Admin: 07/27/18 11:17 Dose: 1 sravan Calcium Acetate (Phoslo) 667 mg GT TIDCC [facility] Last Admin: 07/27/18 11:31 Dose: 667 mg Cholestyramine Resin (Questran) 4 gm PO BID [facility] Last Admin: 07/27/18 10:55 Dose: 4 gm Dextrose (Dextrose 50% Inj) 0 ml IV STAT PRN; Protocol PRN Reason: Hypoglycemia Protocol Ergocalciferol (Drisdol 50,000 Intl Units Cap) 1 cap PO Q7D [facility] Stop: 09/14/18 10:01 Last Admin: 07/27/18 11:00 Dose: 1 cap Escitalopram Oxalate (Lexapro) 20 mg GT DAILY [facility] Last Admin: 07/27/18 10:55 Dose: 20 mg Fluticasone Propionate (Flonase) 2 spr BRITTANY DAILY [facility] Gentamicin Sulfate (Gentamicin 0.1%) 0 gm TOP TID [facility] Last Admin: 07/26/18 17:49 Dose: 1 applic Glucagon (Glucagen Diagnostic Kit) 0 mg IM STAT PRN; Protocol PRN Reason: Hypoglycemia Protocol Guaifenesin (Robitussin) 100 mg PO Q4H PRN PRN Reason: Cough Last Admin: 07/27/18 11:16 Dose: 100 mg Hydromorphone HCl (Dilaudid) 1 mg IVP Q3H PRN PRN Reason: Pain, moderate (4-7) Last Admin: 07/27/18 10:58 Dose: 1 mg Hydroxyzine HCl (Atarax) 25 mg PO Q6H PRN PRN Reason: Anxiety Last Admin: 07/26/18 10:20 Dose: 25 mg Meropenem 1 gm/ Sodium (Chloride) 100 mls @ 100 mls/hr IVPB Q8H [facility]; Protocol Last Admin: 07/27/18 06:46 Dose: 100 mls/hr Micafungin Sodium 100 mg/ (Sodium Chloride) 100 mls @ 100 mls/hr IV Q24H [facility]; Protocol Last Admin: 07/26/18 22:21 Dose: 100 mls/hr Vancomycin HCl 1,000 mg/ (Sodium Chloride) 250 mls @ 166.6 mls/hr IVPB Q12H [facility]; Protocol Stop: 07/29/18 17:01 Last Admin: 07/27/18 04:35 Dose: 166.6 mls/hr Dextrose (Dextrose 5% In Water 1000 Ml) 1,000 mls @ 0 mls/hr IV .Q0M PRN; Protocol PRN Reason: Hypoglycemia Protocol Insulin Human Regular (Novolin R) 0 unit SC ACHS [facility]; Protocol Last Admin: 07/27/18 07:43 Dose: Not Given Ipratropium [place] (Atrovent) 0.5 mg IH RQ6 [facility] Last Admin: 07/27/18 07:13 Dose: Not Given Loperamide HCl (Imodium) 1 mg PO Q2H PRN PRN Reason: Diarrhea Last Admin: 07/26/18 17:49 Dose: 1 mg Loratadine (Claritin) 10 mg PO DAILY [facility] Last Admin: 07/27/18 11:04 Dose: 10 mg Lorazepam (Ativan) 1 mg IVP BID [facility] Last Admin: 07/27/18 10:57 Dose: 1 mg Metoprolol Tartrate (Lopressor) 12.5 mg PEG BID [facility] Last Admin: 07/26/18 17:49 Dose: 12.5 mg Nicotine (Nicoderm Cq) 1 patch TD DAILY [facility] Last Admin: 07/27/18 10:55 Dose: 1 patch Ondansetron HCl (Zofran Inj) 4 mg IVP Q6H PRN PRN Reason: Nausea/Vomiting Last Admin: 07/27/18 11:12 Dose: 4 mg Oxycodone HCl (Oxycodone Immediate Release Tab) 10 mg PO Q6 PRN PRN Reason: Pain, severe (8-10) Last Admin: 07/26/18 17:47 Dose: 10 mg Pantoprazole Sodium (Protonix Susp) 40 mg PO DAILY [facility] Last Admin: 07/27/18 11:00 Dose: 40 mg Saliva Substitute (Mouth Kote 236 Ml) 0 ml MM Q6 PRN PRN Reason: Dry mouth Trazodone HCl (Desyrel) 50 mg PO HS [facility] Last Admin: 07/26/18 22:21 Dose: 50 mg Vitamin A (Vitamin A & D Oint Ud Foilpak) 1 ea TOP Q8 PRN PRN Reason: dry lips Vitamin E (Vitamin E 400 Units Cap) 400 intlu GT DAILY [facility] Last Admin: 07/27/18 10:55 Dose: 400 intlu - Labs Labs: 07/27/18 07:25 07/27/18 07:25 PT 14.3 SECONDS (9.7-12.2) H 06/10/18 07:05 INR 1.3 06/10/18 07:05 APTT 33 SECONDS (21-34) 05/25/18 06:16 - Head Exam Head Exam: ATRAUMATIC - Eye Exam Eye Exam: Normal appearance - ENT Exam ENT Exam: Mucous Membranes Dry - Respiratory Exam Respiratory Exam: NORMAL BREATHING PATTERN - Cardiovascular Exam Cardiovascular Exam: +S1, +S2 - GI/Abdominal Exam GI & Abdominal Exam: Normal Bowel Sounds Assessment and Plan (1) Anemia Assessment & Plan: iron deficiency anemia resolved s/p IV iron anemia of chronic disease; will consider Procrit supplementation in an attempt to avoid further transfusions if hgb < 9 FOBT positive transfuse PRN Status: Acute
[2018-07-27] MEDS: oxyCODONE 10 mg Immediate Release Tab PO PRN ×2 (12:07→18:01)
--- NOTE | 2018-07-27 12:30 | CP.PCM.PN ---
<Morris Connolly - Last Filed: 07/27/18 13:15> Subjective - Date & Time of Evaluation Date of Evaluation: 07/27/18 Time of Evaluation: 09:10 - Subjective Subjective: Medicine Progress Note for Hospitalist Service Pt seen and examined at bedside this am. Denies any acute complaints. Resting comfortably at bedside. No acute events reported overnight. NGT tube output 200 cc over past 12 hrs. 12-point ROS obtained, otherwise negative as per pt. Pt scheduled for reversal procedure with Surgery on 08/08/18. Objective - Vital Signs/Intake and Output Vital Signs (last 24 hours): Temp Pulse Resp BP Pulse Ox 98.3 F 80 20 130/87 93 L 07/27/18 07:00 07/27/18 07:00 07/27/18 07:00 07/27/18 07:00 07/27/18 07:00 Intake and Output: 07/27/18 07/27/18 06:59 18:59 Intake Total 600 Output Total 200 Balance 400 - Medications Medications: Current Medications Acetaminophen (Tylenol 650mg/20.3ml Solution Ud) 975 mg GT Q8H PRN PRN Reason: Pain, Mild (1-3) Last Admin: 07/25/18 18:58 Dose: 975 mg Benzocaine/Menthol (Cepacol Sore Throat) 1 sravan MT Q2H PRN PRN Reason: Sore Throat Last Admin: 07/27/18 11:17 Dose: 1 sravan Calcium Acetate (Phoslo) 667 mg GT TIDCC [facility] Last Admin: 07/27/18 11:31 Dose: 667 mg Cholestyramine Resin (Questran) 4 gm PO BID [facility] Last Admin: 07/27/18 10:55 Dose: 4 gm Dextrose (Dextrose 50% Inj) 0 ml IV STAT PRN; Protocol PRN Reason: Hypoglycemia Protocol Ergocalciferol (Drisdol 50,000 Intl Units Cap) 1 cap PO Q7D [facility] Stop: 09/14/18 10:01 Last Admin: 07/27/18 11:00 Dose: 1 cap Escitalopram Oxalate (Lexapro) 20 mg GT DAILY [facility] Last Admin: 07/27/18 10:55 Dose: 20 mg Fluticasone Propionate (Flonase) 2 spr BRITTANY DAILY [facility] Gentamicin Sulfate (Gentamicin 0.1%) 0 gm TOP TID [facility] Last Admin: 07/26/18 17:49 Dose: 1 applic Glucagon (Glucagen Diagnostic Kit) 0 mg IM STAT PRN; Protocol PRN Reason: Hypoglycemia Protocol Guaifenesin (Robitussin) 100 mg PO Q4H PRN PRN Reason: Cough Last Admin: 07/27/18 11:16 Dose: 100 mg Hydromorphone HCl (Dilaudid) 1 mg IVP Q3H PRN PRN Reason: Pain, moderate (4-7) Last Admin: 07/27/18 10:58 Dose: 1 mg Hydroxyzine HCl (Atarax) 25 mg PO Q6H PRN PRN Reason: Anxiety Last Admin: 07/26/18 10:20 Dose: 25 mg Meropenem 1 gm/ Sodium (Chloride) 100 mls @ 100 mls/hr IVPB Q8H [facility]; Protocol Last Admin: 07/27/18 06:46 Dose: 100 mls/hr Micafungin Sodium 100 mg/ (Sodium Chloride) 100 mls @ 100 mls/hr IV Q24H [facility]; Protocol Last Admin: 07/26/18 22:21 Dose: 100 mls/hr Vancomycin HCl 1,000 mg/ (Sodium Chloride) 250 mls @ 166.6 mls/hr IVPB Q12H [facility]; Protocol Stop: 07/29/18 17:01 Last Admin: 07/27/18 04:35 Dose: 166.6 mls/hr Dextrose (Dextrose 5% In Water 1000 Ml) 1,000 mls @ 0 mls/hr IV .Q0M PRN; Protocol PRN Reason: Hypoglycemia Protocol Insulin Human Regular (Novolin R) 0 unit SC ACHS [facility]; Protocol Last Admin: 07/27/18 07:43 Dose: Not Given Ipratropium Riga (Atrovent) 0.5 mg IH RQ6 [facility] Last Admin: 07/27/18 07:13 Dose: Not Given Loperamide HCl (Imodium) 1 mg PO Q2H PRN PRN Reason: Diarrhea Last Admin: 07/26/18 17:49 Dose: 1 mg Loratadine (Claritin) 10 mg PO DAILY [facility] Last Admin: 07/27/18 11:04 Dose: 10 mg Lorazepam (Ativan) 1 mg IVP BID [facility] Last Admin: 07/27/18 10:57 Dose: 1 mg Metoprolol Tartrate (Lopressor) 12.5 mg PEG BID [facility] Last Admin: 07/26/18 17:49 Dose: 12.5 mg Nicotine (Nicoderm Cq) 1 patch TD DAILY [facility] Last Admin: 07/27/18 10:55 Dose: 1 patch Ondansetron HCl (Zofran Inj) 4 mg IVP Q6H PRN PRN Reason: Nausea/Vomiting Last Admin: 07/27/18 11:12 Dose: 4 mg Oxycodone HCl (Oxycodone Immediate Release Tab) 10 mg PO Q6 PRN PRN Reason: Pain, severe (8-10) Last Admin: 07/27/18 12:07 Dose: 10 mg Pantoprazole Sodium (Protonix Susp) 40 mg PO DAILY [facility] Last Admin: 07/27/18 11:00 Dose: 40 mg Saliva Substitute (Mouth Kote 236 Ml) 0 ml MM Q6 PRN PRN Reason: Dry mouth Trazodone HCl (Desyrel) 50 mg PO HS [facility] Last Admin: 07/26/18 22:21 Dose: 50 mg Vitamin A (Vitamin A & D Oint Ud Foilpak) 1 ea TOP Q8 PRN PRN Reason: dry lips Vitamin E (Vitamin E 400 Units Cap) 400 intlu GT DAILY [facility] Last Admin: 07/27/18 10:55 Dose: 400 intlu - Labs Labs: 07/27/18 07:25 07/27/18 07:25 PT 14.3 SECONDS (9.7-12.2) H 06/10/18 07:05 INR 1.3 06/10/18 07:05 APTT 33 SECONDS (21-34) 05/25/18 06:16 - Constitutional Appears: Non-toxic, No Acute Distress - Head Exam Head Exam: ATRAUMATIC, NORMOCEPHALIC - Eye Exam Eye Exam: EOMI, Normal appearance, PERRL - ENT Exam ENT Exam: Mucous Membranes Moist Additional comments: NGT in place, not dislodged - Respiratory Exam Respiratory Exam: Clear to Ausculation Bilateral, NORMAL BREATHING PATTERN. absent: Rales, Rhonchi, Wheezes - Cardiovascular Exam Cardiovascular Exam: REGULAR RHYTHM, +S1, +S2. absent: Rubs, Murmur - GI/Abdominal Exam GI & Abdominal Exam: Soft, Normal Bowel Sounds. absent: Distended, Firm, Guarding, Rigid, Tenderness, Organomegaly, Rebound Additional comments: Abdominal wound vac and gastrostomy tube in place, c/d/i - Extremities Exam Extremities Exam: Full ROM, Normal Capillary Refill, Normal Inspection. 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 Harley) consulted - awaiting Dr Mccray's response on surgical intervention; f/u with surgical team regarding dispo => per surgery pt cleared to go to LTACH facility and have reversal procedure done electively; waiting to hear from surgery regarding time and date for scheduled procedure Wound vac to continuous suction, to be replaced Q72hrs Heme/onc (Dr. Cash) consulted for Fe status - repeat ferritin 185, no need for iron infusion at this time, continue to monitor Other cultures: 06/22/18: abd incision => Pseudomonas aeruginosa sensitive to Meropenem 06/22/18: Peg site => Pseudomonas aeruginosa sensitive to Meropenem 05/14/18: Peritoneal fluid => Pseudomonas aeruginosa sensitive to Meropenem 05/23/18: Wound cx => Chula albicans 05/15/18, 05/22/18: Blood cx => no growth 05/22/18: Urine cx => no growth 05/31/18: Incision site => Enterococcus faecalis, Acinetobacter baumannii 06/03/18: Stool cxs => No Salmonella, Shigella, or Campylobacter isolates 06/13/18: Repeat wound cx => Coag-neg Staph, Enterococcus raffinosus 07/12/18 Repeat wound cx growing Pseudomonas and Chula Lusitaniae 07/14/18 repeat blood cxs NG 07/15/18 repeat blood cxs through central line NG 07/15/18 Sputum cx no growth 07/15/18 Urine cx no growth 07/16/18 blood culture x2 via PICC line grew E. faecalis sensitive to vancomycin -Echocardiogram (07/18) shows EF approximately 56%, AV mildly thickened, MV moderately thickened. No vegetation. 07/18/18: NG for 4 days Repeat cxs drawn 07/24/18 from peripheral and PICC lines, no growth to date Antibiotics: Continue Meropenem 1 g q 8 h IVPB ; restarted as per ID due to pos abd wound cx (07/12) Vancomycin 1 g IV q 12 h started 07/16 Cipro 400 mg IV q 12h d/c'd (started 06/02/18, last day 06/16/18) Flagyl 500 mg IVPB q 8 h completed (active from 05/15/18-06/19/18) Micafungin 100mg IV Q24hrs Continue Gentamicin 0.1% TOP TID apply cream to peg tube site Per ID: c/w antibiotics for total of 2 weeks therapy F/u vitamin levels and replace as needed: Vit D < 12.8, 24264 U q1 wk x 8 wks B12 707, wnl; repeat B12 508 Folate 12.6, wnl Vit A 42, wnl Alpha vit E 5.6, wnl Zinc level wnl Vit A, B1, B6, E levels reordered on 06/15 Vit B1: inappropriately submitted, 06/01/18 valve acceptable Vit B6: 5.9, wnl Vit A, E collected Repeat Vitamin levels ordered on 07/08, f/u results 07/08: Pre-albumin 11.6, B12 508, 25-OH vit D < 12.8, vit A 33, vit E wnl As per acidizer recs on 07/15, feeds changed to Jevity 1.5 with goal rate 50 mL C/w Tylenol 975 mg liquid q 8h, Dilaudid 1 mg q 3 h prn, Zofran 4 mg IV q 6 h prn; Oxycodone IR 10 mg q6h prn Fever, possible sepsis - Afebrile - abdominal wound culture shows chula and pseudomonas - chest x ray - lungs clear to auscultation b/l, no acute findings - Repeat portable chest x ray 07/18 - in situ NGT, the tip of which overlies the lower mediastinum and must be advanced. no acute infiltrates. - PICC Line removed(07/17) - catheter tip culture is negative for growth - New PICC line placed by IR (Dr. Peraza) on 07/22/18 - f/u sputum cultures - normal renetta - Urine culture - no growth, final - WBC 07/27 - 8.1 -F/u Bl Doppler to rule out DVT - no DVT bilaterally -VBG/lactate level - ph: 7.45, pCO2: 39, lactate 0.9 - Normal saline @ 100mls/hr - continue tylenol for fevers -abx: Meropenem 1 g q 8 h IVPB, Vancomycin 1 g IV q 12 h - random vanc is 11.2 - blood culture through picc line grew E. faecalis sensitive to vancomycin -continue with current abx as per ID; last day on anbx will be 07/30/18 Tachycardia, persistent, hx into 110s-130s - possible etiologies include pain, infection, anxiety Today HR - 87, continue to monitor and trend Ativan prn, Dilaudid prn C/w metoprolol tartrate 12.5 mg bid via PEG tube Diarrhea- suspect 2/2 PO intake by patient C. Diff (05/22, 05/24, 05/28, 07/17) neg Stool ova and parasites (05/25/18) neg Stool leukocytes (05/25/18) neg Imodium 1 mg PO q 2h prn Anxiety [employer] consulted - pt refusing at this time Psych consulted (Dr. Reyez) - managing Ativan, c/w prn Lexapro 20 mg GT daily (increased as per psych recs) Insomnia - Benadryl d/c'd, clinically not indicated Anemia, acute, stable, pt denies blood in stool Total 2 PRBC (on 05/16) and 4 FFP (on 05/15 and 05/16) H/H is stable Iron 16, TIBC 205, % sat 4.7, repeat ferritin 185 after Ferrlecit Monitor CBC q2d Per Dr. Cash, consider Procrit supplementation in attempt to avoid further transfusions if Hgb < 9; transfuse prn Thrombocytosis - suspect reactive to pain, surgery; resolved 07/27 platelets: 281 DM2, controlled From prior note: admittedly non-compliant, has not taken Januvia for 1 y Accuchecks q6h Hypoglycemic protocol ISS regular HgbA1c 5.8 Hx gastric bypass surgery Hypercholesterolemia, untx LDL < 30, HDL < 23, Chol 59, TG 195 (06/03/18) Hx gastric bypass surgery Questran 4 g PO bid via PEG tube Hx HTN, controlled Metoprolol 12.5 mg bid via PEG tube Hx Asthma - Chronic Continue to monitor Atrovent prn Continue Robitussin prn Continue Claritin 10 daily for allergy sxs Nicotine use disorder - Chronic From prior note: 1 ppd x 20 y, 1/2 ppd x 3 y C/w Nicoderm patch Electrolyte imbalance - Hypokalemia, Hypomagnesemia, resolving F/u am labs, replete as needed Mg 1.7, K 3.8 - continue to monitor PPX, Diet, Dispo Hydrocortisone 1% cream top tid for R upper inner arm macular rash - improved Vitamin A+D top q 8h prn for dry lips Saliva substitute q 6 h prn for dry mouth IVF not indicated at this time VTE ppx: Lovenox 40 subQ d, SCDs, encourage ambulation GI ppx: Protonix 40 mg IV bid, Florastor bid Code status: Full code Continue PT services, follow up recs Dispo: Continue to optimize patient for reversal surgery. Patient scheduled for OR procedure as per surgery on 08/08/18. Pt refusing to go to LTACH facility at this time. F/u Case Mgmt recs. Pt seen, examined with, and plan discussed with Dr. Denise, attending physician. Morris Connolly DO PGY-1, [employer] Pager #[phone] <Franki Denise - Last Filed: 07/27/18 20:11> Objective - Vital Signs/Intake and Output Vital Signs (last 24 hours): Temp Pulse Resp BP Pulse Ox 98.4 F 112 H 20 120/71 94 L 07/27/18 15:00 07/27/18 15:00 07/27/18 15:00 07/27/18 15:00 10/17/18 15:00 Intake and Output: 18 18 18:59 06:59 Intake Total 750 Output Total 200 Balance 550 - Medications Medications: Current Medications Acetaminophen (Tylenol 650mg/20.3ml Solution Ud) 975 mg GT Q8H PRN PRN Reason: Pain, Mild (1-3) Last Admin: 07/25/18 18:58 Dose: 975 mg Benzocaine/Menthol (Cepacol Sore Throat) 1 sravan MT Q2H PRN PRN Reason: Sore Throat Last Admin: 07/27/18 18:06 Dose: 1 sravan Calcium Acetate (Phoslo) 667 mg GT TIDCC [facility] Last Admin: 07/27/18 18:02 Dose: 667 mg Cholestyramine Resin (Questran) 4 gm PO BID [facility] Last Admin: 07/27/18 18:02 Dose: 4 gm Dextrose (Dextrose 50% Inj) 0 ml IV STAT PRN; Protocol PRN Reason: Hypoglycemia Protocol Ergocalciferol (Drisdol 50,000 Intl Units Cap) 1 cap PO Q7D [facility] Stop: 09/14/18 10:01 Last Admin: 07/27/18 11:00 Dose: 1 cap Escitalopram Oxalate (Lexapro) 20 mg GT DAILY [facility] Last Admin: 07/27/18 10:55 Dose: 20 mg Fluticasone Propionate (Flonase) 2 spr BRITTANY DAILY [facility] Last Admin: 07/27/18 15:03 Dose: 2 sprays Gentamicin Sulfate (Gentamicin 0.1%) 0 gm TOP TID [facility] Last Admin: 07/27/18 18:07 Dose: 1 applic Glucagon (Glucagen Diagnostic Kit) 0 mg IM STAT PRN; Protocol PRN Reason: Hypoglycemia Protocol Guaifenesin (Robitussin) 100 mg PO Q4H PRN PRN Reason: Cough Last Admin: 07/27/18 18:09 Dose: 100 mg Hydromorphone HCl (Dilaudid) 1 mg IVP Q3H PRN PRN Reason: Pain, moderate (4-7) Last Admin: 07/27/18 17:10 Dose: 1 mg Hydroxyzine HCl (Atarax) 25 mg PO Q6H PRN PRN Reason: Anxiety Last Admin: 07/26/18 10:20 Dose: 25 mg Meropenem 1 gm/ Sodium (Chloride) 100 mls @ 100 mls/hr IVPB Q8H [facility]; Protocol Last Admin: 07/27/18 15:22 Dose: 100 mls/hr Micafungin Sodium 100 mg/ (Sodium Chloride) 100 mls @ 100 mls/hr IV Q24H [facility]; Protocol Last Admin: 07/26/18 22:21 Dose: 100 mls/hr Vancomycin HCl 1,000 mg/ (Sodium Chloride) 250 mls @ 166.6 mls/hr IVPB Q12H [facility]; Protocol Stop: 07/29/18 17:01 Last Admin: 07/27/18 17:09 Dose: 166.6 mls/hr Dextrose (Dextrose 5% In Water 1000 Ml) 1,000 mls @ 0 mls/hr IV .Q0M PRN; Protocol PRN Reason: Hypoglycemia Protocol Insulin Human Regular (Novolin R) 0 unit SC ACHS [facility]; Protocol Last Admin: 07/27/18 17:25 Dose: Not Given Ipratropium Riga (Atrovent) 0.5 mg IH RQ6 [facility] Last Admin: 07/27/18 13:22 Dose: 0.5 mg Loperamide HCl (Imodium) 1 mg PO Q2H PRN PRN Reason: Diarrhea Last Admin: 07/27/18 18:08 Dose: 1 mg Loratadine (Claritin) 10 mg PO DAILY [facility] Last Admin: 07/27/18 11:04 Dose: 10 mg Lorazepam (Ativan) 1 mg IVP BID [facility] Last Admin: 07/27/18 18:01 Dose: 1 mg Metoprolol Tartrate (Lopressor) 12.5 mg PEG BID [facility] Last Admin: 07/27/18 18:03 Dose: 12.5 mg Nicotine (Nicoderm Cq) 1 patch TD DAILY [facility] Last Admin: 07/27/18 10:55 Dose: 1 patch Ondansetron HCl (Zofran Inj) 4 mg IVP Q6H PRN PRN Reason: Nausea/Vomiting Last Admin: 07/27/18 18:01 Dose: 4 mg Oxycodone HCl (Oxycodone Immediate Release Tab) 10 mg PO Q6 PRN PRN Reason: Pain, severe (8-10) Last Admin: 07/27/18 18:01 Dose: 10 mg Pantoprazole Sodium (Protonix Susp) 40 mg PO DAILY [facility] Last Admin: 07/27/18 11:00 Dose: 40 mg Saliva Substitute (Mouth Kote 236 Ml) 0 ml MM Q6 PRN PRN Reason: Dry mouth Trazodone HCl (Desyrel) 50 mg PO HS [facility] Last Admin: 07/26/18 22:21 Dose: 50 mg Vitamin A (Vitamin A & D Oint Ud Foilpak) 1 ea TOP Q8 PRN PRN Reason: dry lips Vitamin E (Vitamin E 400 Units Cap) 400 intlu GT DAILY [facility] Last Admin: 07/27/18 10:55 Dose: 400 intlu - Labs Labs: 07/27/18 07:25 07/27/18 07:25 PT 14.3 SECONDS (9.7-12.2) H 06/10/18 07:05 INR 1.3 06/10/18 07:05 APTT 33 SECONDS (21-34) 05/25/18 06:16 Attending/Attestation - Attestation I have personally seen and examined this patient.: Yes I have fully participated in the care of the patient.: Yes I have reviewed all pertinent clinical information, including history, physical exam and plan: Yes Notes (Text): 07/27/18 20:01 Patient was seen and examined at 10:45 AM 07/27/18 654 P Care of this patient was discussed with the resident. Upon ROS: 3 nonbloody watery bowel movements since yesterday Clear Rhinorrhea NO soreness in throat Still with generalized abdominal pain Patient continues to be angry and upset at time of exam with planned surgery date on 08/08/18 which she states is still too far away. Also on Exam: NO signs of physical distress on exam HEENT: nasal turbinates are edematous and slightly erythematous, NO cervica l/supraclavicular/submandibular lymphadenopathy, NO pharyngeal erythema/exudate Cardio: NS1, NS2, NO M/R/G Resp: CTA B/L, NO R/R/W GI: BSX4 are present, ND, NT to palpation at the time of my exam, Central abdominal scar appears to be healing well, Wound vac in place, Gtube Ext: Pulses are strong and equal, Capillary Refill is 2 seconds, NO edema Neuro: CN II through XII are grossly intact Flonase has been ordered for the Rhinorrhea Vitals are stable and HR is below 100s at the time of my exam NO fevers noted IV antibiotics (Micofungin, Meropenem, Vancomycin) last dose as per ID on 07/30/18 for treatment of Enterococcus in blood (07/16/18), Pseudomonas at PEG Tube insertion site (07/12/18) and Pseudomonas/Chula at Surgical Site culture (07/12/18): Repeat Blood Culture 07/18/18 showed NO growth at 5 days Repeat Blood Culture 07/24/18 is negative to date Surgery planned for 08/08/18 Franki Denise D.O.
[2018-07-27] MEDS: Fluticasone Nasal 50 mcg/Spray NAS SCH (15:03)
[2018-07-27] MEDS: Loperamide Hydrochloride 1 mg/5 ml Cup PO PRN ×3 (18:06→20:07)
[2018-07-27] MEDS: Micafungin 100 MG in Sodium Chloride 0.9% 100 ML IV SCH (22:59)
[2018-07-28] MEDS: Meropenem 1 GM in Sodium Chloride 0.9% 100 ML IVPB SCH ×4 (00:31→16:38)
[2018-07-28] MEDS: oxyCODONE 10 mg Immediate Release Tab PO PRN ×4 (00:41→21:21)
[2018-07-28] MEDS: Ipratropium 0.02% Inhal Soln (0.5 mg/2.5 ml) UD IH SCH ×3 (02:00→13:15)
[2018-07-28] MEDS: HYDROmorphone 1 mg/ml ISec IVP PRN ×7 (02:01→20:34)
[2018-07-28] MEDS: (Novolin R) Insulin Human Regular 100 units/ml vial SC SCH ×4 (08:15→21:32)
[2018-07-28 08:18] LABS: BASO % 0.4 % (0.0-2.0); EOS % 11.7 % (0.0-4.0); HEMOGLOBIN 8.7 g/dL (11.0-16.0); LYMPH # 2.2 K/uL (1.0-4.3); LYMPH % 25.5 % (20.0-40.0); MEAN CORPUSCULAR HEMOGLOBIN 28.5 pg (27.0-31.0); MEAN CORPUSCULAR HGB CONC 33.1 g/dL (33.0-37.0); MEAN PLATELET VOLUME 7.1 fL (7.2-11.7); MONO # 0.4 K/uL (0.0-0.8); MONO % 4.7 % (0.0-10.0); NEUT % 57.7 % (50.0-75.0); NRBC % 0.1 % (0.0-2.0); RBC 3.04 Mil/uL (3.80-5.20); RED CELL DISTRIBUTION WIDTH 18.3 % (11.5-14.5); WHITE BLOOD COUNT 8.6 K/uL (4.8-10.8)
[2018-07-28 08:39] LABS: ALBUMIN 2.9 g/dL (3.5-5.0); ALT/SGPT 26 U/L (9-52); AST/SGOT 12 U/L (14-36); BLOOD UREA NITROGEN 9 mg/dL (7-17); CALCIUM 8.2 mg/dl (8.6-10.4); GFR NON-AFRICAN AMERICAN > 60
[2018-07-28] MEDS: Pantoprazole 40 mg Susp UD PO SCH (10:47)
[2018-07-28] MEDS: Cholestyramine 4 gm/Pkt UD PO SCH ×2 (10:47→17:25)
[2018-07-28] MEDS: Loperamide Hydrochloride 1 mg/5 ml Cup PO PRN (10:48)
[2018-07-28] MEDS: Benzocaine/Menthol (Cepacol) Lozenge MT PRN (10:49)
[2018-07-28] MEDS: guaiFENesin 100 mg/5 ml Syrup UD PO PRN ×2 (10:52→17:38)
[2018-07-28] MEDS: GENTAMICIN 0.1% TOP SCH ×3 (10:53→17:31)
[2018-07-28] MEDS: Fluticasone Nasal 50 mcg/Spray NAS SCH (11:15)
--- NOTE | 2018-07-28 11:27 | CP.PCM.PN ---
<Morris Connolly - Last Filed: 07/28/18 17:17> Subjective - Date & Time of Evaluation Date of Evaluation: 07/28/18 Time of Evaluation: 07:30 - Subjective Subjective: Medicine Progress Note for Hospitalist Service Pt seen and examined at bedside this am. Denies any acute complaints, resting comfortably at bedside. No acute events reported overnight. 200 cc observed in NG tube canister this am. 12-point ROS obtained, otherwise neg as per pt. Objective - Vital Signs/Intake and Output Vital Signs (last 24 hours): Temp Pulse Resp BP Pulse Ox 98.6 F 97 H 18 114/77 96 07/28/18 07:00 07/28/18 07:00 07/28/18 07:00 07/28/18 07:00 07/28/18 07:00 Intake and Output: 07/28/18 07/28/18 06:59 18:59 Output Total 400 Balance -400 - Medications Medications: Current Medications Acetaminophen (Tylenol 650mg/20.3ml Solution Ud) 975 mg GT Q8H PRN PRN Reason: Pain, Mild (1-3) Last Admin: 07/25/18 18:58 Dose: 975 mg Benzocaine/Menthol (Cepacol Sore Throat) 1 sravan MT Q2H PRN PRN Reason: Sore Throat Last Admin: 07/28/18 10:49 Dose: 1 sravan Calcium Acetate (Phoslo) 667 mg GT TIDCC [facility] Last Admin: 07/28/18 08:09 Dose: 667 mg Cholestyramine Resin (Questran) 4 gm PO BID [facility] Last Admin: 07/28/18 10:47 Dose: 4 gm Dextrose (Dextrose 50% Inj) 0 ml IV STAT PRN; Protocol PRN Reason: Hypoglycemia Protocol Ergocalciferol (Drisdol 50,000 Intl Units Cap) 1 cap PO Q7D [facility] Stop: 09/14/18 10:01 Last Admin: 07/27/18 11:00 Dose: 1 cap Escitalopram Oxalate (Lexapro) 20 mg GT DAILY [facility] Last Admin: 07/28/18 10:46 Dose: 20 mg Fluticasone Propionate (Flonase) 2 spr BRITTANY DAILY [facility] Last Admin: 07/28/18 11:15 Dose: 1 sprays Gentamicin Sulfate (Gentamicin 0.1%) 0 gm TOP TID [facility] Last Admin: 07/28/18 10:53 Dose: 1 applic Glucagon (Glucagen Diagnostic Kit) 0 mg IM STAT PRN; Protocol PRN Reason: Hypoglycemia Protocol Guaifenesin (Robitussin) 100 mg PO Q4H PRN PRN Reason: Cough Last Admin: 07/28/18 10:52 Dose: 100 mg Hydromorphone HCl (Dilaudid) 1 mg IVP Q3H PRN PRN Reason: Pain, moderate (4-7) Last Admin: 07/28/18 08:10 Dose: 1 mg Hydroxyzine HCl (Atarax) 25 mg PO Q6H PRN PRN Reason: Anxiety Last Admin: 07/28/18 08:30 Dose: 25 mg Meropenem 1 gm/ Sodium (Chloride) 100 mls @ 100 mls/hr IVPB Q8H [facility]; Protocol Last Admin: 07/28/18 06:52 Dose: 100 mls/hr Micafungin Sodium 100 mg/ (Sodium Chloride) 100 mls @ 100 mls/hr IV Q24H [facility]; P rotocol Last Admin: 07/27/18 22:59 Dose: 100 mls/hr Vancomycin HCl 1,000 mg/ (Sodium Chloride) 250 mls @ 166.6 mls/hr IVPB Q12H [facility]; Protocol Stop: 07/29/18 17:01 Last Admin: 07/28/18 05:09 Dose: 166.6 mls/hr Dextrose (Dextrose 5% In Water 1000 Ml) 1,000 mls @ 0 mls/hr IV .Q0M PRN; Protocol PRN Reason: Hypoglycemia Protocol Insulin Human Regular (Novolin R) 0 unit SC ACHS [facility]; Protocol Last Admin: 07/28/18 08:15 Dose: Not Given Ipratropium [place] (Atrovent) 0.5 mg IH RQ6 [facility] Last Admin: 07/28/18 07:35 Dose: 0.5 mg Loperamide HCl (Imodium) 1 mg PO Q2H PRN PRN Reason: Diarrhea Last Admin: 07/28/18 10:48 Dose: 1 mg Loratadine (Claritin) 10 mg PO DAILY [facility] Last Admin: 07/28/18 10:47 Dose: 10 mg Lorazepam (Ativan) 1 mg IVP BID [facility] Last Admin: 07/28/18 10:43 Dose: 1 mg Metoprolol Tartrate (Lopressor) 12.5 mg PEG BID [facility] Last Admin: 07/28/18 10:46 Dose: 12.5 mg Mupirocin (Bactroban Ointment) 0 gm TOP BID [facility] Last Admin: 07/28/18 10:52 Dose: 1 oin Nicotine (Nicoderm Cq) 1 patch TD DAILY [facility] Last Admin: 07/28/18 10:47 Dose: 1 patch Ondansetron HCl (Zofran Inj) 4 mg IVP Q6H PRN PRN Reason: Nausea/Vomiting Last Admin: 07/28/18 10:52 Dose: 4 mg Oxycodone HCl (Oxycodone Immediate Release Tab) 10 mg PO Q6 PRN PRN Reason: Pain, severe (8-10) Last Admin: 07/28/18 06:56 Dose: 10 mg Pantoprazole Sodium (Protonix Susp) 40 mg PO DAILY [facility] Last Admin: 07/28/18 10:47 Dose: 40 mg Saliva Substitute (Mouth Kote 236 Ml) 0 ml MM Q6 PRN PRN Reason: Dry mouth Trazodone HCl (Desyrel) 50 mg PO HS [facility] Last Admin: 07/27/18 21:06 Dose: 50 mg Vitamin A (Vitamin A & D Oint Ud Foilpak) 1 ea TOP Q8 PRN PRN Reason: dry lips Vitamin E (Vitamin E 400 Units Cap) 400 intlu GT DAILY [facility] Last Admin: 07/28/18 10:46 Dose: 400 intlu - Labs Labs: 07/28/18 08:09 07/28/18 08:09 PT 14.3 SECONDS (9.7-12.2) H 06/10/18 07:05 INR 1.3 06/10/18 07:05 APTT 33 SECONDS (21-34) 05/25/18 06:16 - Constitutional Appears: Non-toxic, No Acute Distress, Chronically Ill - Head Exam Head Exam: ATRAUMATIC, NORMOCEPHALIC - Eye Exam Eye Exam: EOMI, Normal appearance, PERRL - ENT Exam ENT Exam: Mucous Membranes Moist - Respiratory Exam Respiratory Exam: Clear to Ausculation Bilateral, NORMAL BREATHING PATTERN. absent: Rales, Rhonchi, Wheezes - Cardiovascular Exam Cardiovascular Exam: REGULAR RHYTHM, +S1, +S2. absent: Gallop, Rubs, Murmur - GI/Abdominal Exam GI & Abdominal Exam: Soft, Normal Bowel Sounds. absent: Distended, Firm, Guarding, Rigid, Tenderness, Organomegaly, Rebound Additional comments: Abdominal wound vac and gastrostomy tube in place, c/d/i - Extremities Exam Extremities Exam: Full ROM, Normal Capillary Refill, Normal Inspection. absent: Calf Tenderness, Pedal Edema - Back Exam Back Exam: Full ROM, NORMAL INSPECTION. 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 Harley) consulted - awaiting Dr Mccray's response on surgical intervention; f/u with surgical team regarding dispo => per surgery pt cleared t o go to [facility] facility and have reversal procedure done electively; waiting to hear from surgery regarding time and date for scheduled procedure Wound vac to continuous suction, to be replaced Q72hrs Heme/onc (Dr. Cash) consulted for Fe status - repeat ferritin 185, no need for iron infusion at this time, continue to monitor Other cultures: 06/22/18: abd incision => Pseudomonas aeruginosa sensitive to Meropenem 06/22/18: Peg site => Pseudomonas aeruginosa sensitive to Meropenem 05/14/18: Peritoneal fluid => Pseudomonas aeruginosa sensitive to Meropenem 05/23/18: Wound cx => Chula albicans 05/15/18, 05/22/18: Blood cx => no growth 05/22/18: Urine cx => no growth 05/31/18: Incision site => Enterococcus faecalis, Acinetobacter baumannii 06/03/18: Stool cxs => No Salmonella, Shigella, or Campylobacter isolates 06/13/18: Repeat wound cx => Coag-neg Staph, Enterococcus raffinosus 07/12/18 Repeat wound cx growing Pseudomonas and Chula Lusitaniae 07/14/18 repeat blood cxs NG 07/15/18 repeat blood cxs through central line NG 07/15/18 Sputum cx no growth 07/15/18 Urine cx no growth 07/16/18 blood culture x2 via PICC line grew E. faecalis sensitive to vancomycin -Echocardiogram (07/18) shows EF approximately 56%, AV mildly thickened, MV moderately thickened. No vegetation. 07/18/18: NG for 4 days Repeat cxs drawn 07/24/18 from peripheral and PICC lines, no growth to date Antibiotics: Continue Meropenem 1 g q 8 h IVPB ; restarted as per ID due to pos abd wound cx (07/12) Vancomycin 1 g IV q 12 h started 07/16 Cipro 400 mg IV q 12h d/c'd (started 06/02/18, last day 06/16/18) Flagyl 500 mg IVPB q 8 h completed (active from 05/15/18-06/19/18) Micafungin 100mg IV Q24hrs Continue Gentamicin 0.1% TOP TID apply cream to peg tube site Per ID: c/w antibiotics for total of 2 weeks therapy F/u vitamin levels and replace as needed: Vit D < 12.8, 05797 U q1 wk x 8 wks B12 707, wnl; repeat B12 508 Folate 12.6, wnl Vit A 42, wnl Alpha vit E 5.6, wnl Zinc level wnl Vit A, B1, B6, E levels reordered on 06/15 Vit B1: inappropriately submitted, 06/01/18 valve acceptable Vit B6: 5.9, wnl Vit A, E collected Repeat Vitamin levels ordered on 07/08, f/u results 07/08: Pre-albumin 11.6, B12 508, 25-OH vit D < 12.8, vit A 33, vit E wnl As per slip cover cutter recs on 07/15, feeds changed to Jevity 1.5 with goal rate 50 mL C/w Tylenol 975 mg liquid q 8h, Dilaudid 1 mg q 3 h prn, Zofran 4 mg IV q 6 h prn; Oxycodone IR 10 mg q6h prn Fever, possible sepsis - Afebrile - abdominal wound culture shows chula and pseudomonas - chest x ray - lungs clear to auscultation b/l, no acute findings - Repeat portable chest x ray 07/18 - in situ NGT, the tip of which overlies the lower mediastinum and must be advanced. no acute infiltrates. - PICC Line removed(07/17) - catheter tip culture is negative for growth - New PICC line placed by IR (Dr. Peraza) on 07/22/18 - f/u sputum cultures - normal renetta - Urine culture - no growth, final - WBC 07/28 - 8.3 -F/u Bl Doppler to rule out DVT - no DVT bilaterally -VBG/lactate level - ph: 7.45, pCO2: 39, lactate 0.9 - Normal saline @ 100mls/hr - continue tylenol for fevers -abx: Meropenem 1 g q 8 h IVPB, Vancomycin 1 g IV q 12 h - random vanc is 11.2 - blood culture through picc line grew E. faecalis sensitive to vancomycin -continue with current abx as per ID; last day on anbx will be 07/30/18 Tachycardia, persistent, hx into 110s-130s - possible etiologies include pain, infection, anxiety Today HR - 87, continue to monitor and trend Ativan prn, Dilaudid prn C/w metoprolol tartrate 12.5 mg bid via PEG tube Diarrhea- suspect 2/2 PO intake by patient C. Diff (05/22, 05/24, 05/28, 07/17) neg Stool ova and parasites (05/25/18) neg Stool leukocytes (05/25/18) neg Imodium 1 mg PO q 2h prn Anxiety Scheduling Manager consulted - pt refusing at this time Psych consulted (Dr. Reyez) - managing Ativan, c/w prn Lexapro 20 mg GT daily (increased as per psych recs) Insomnia - Benadryl d/c'd, clinically not indicated Anemia, acute, stable, pt denies blood in stool Total 2 PRBC (on 05/16) and 4 FFP (on 05/15 and 05/16) H/H is stable Iron 16, TIBC 205, % sat 4.7, repeat ferritin 185 after Ferrlecit Monitor CBC Per Dr. Cash, consider Procrit supplementation in attempt to avoid further transfusions if Hgb < 9; transfuse prn Thrombocytosis - suspect reactive to pain, surgery 07/27 platelets: 602 DM2, controlled From prior note: admittedly non-compliant, has not taken Januvia for 1 y Accuchecks q6h Hypoglycemic protocol ISS regular HgbA1c 5.8 Hx gastric bypass surgery Hypercholesterolemia, untx LDL < 30, HDL < 23, Chol 59, TG 195 (06/03/18) Hx gastric bypass surgery Questran 4 g PO bid via PEG tube Hx HTN, controlled Metoprolol 12.5 mg bid via PEG tube Hx Asthma - Chronic Continue to monitor Atrovent prn Continue Robitussin prn Continue Claritin 10 daily for allergy sxs Nicotine use disorder - Chronic From prior note: 1 ppd x 20 y, 1/2 ppd x 3 y C/w Nicoderm patch Electrolyte imbalance - Hypokalemia, Hypomagnesemia, resolving F/u am labs, replete as needed Mg 1.6, K 4.2 - continue to monitor PPX, Diet, Dispo Hydrocortisone 1% cream top tid for R upper inner arm macular rash - improved Vitamin A+D top q 8h prn for dry lips Saliva substitute q 6 h prn for dry mouth IVF not indicated at this time VTE ppx: Lovenox 40 subQ d, SCDs, encourage ambulation GI ppx: Protonix 40 mg IV bid, Florastor bid Code status: Full code Continue PT services, follow up recs Dispo: Continue to optimize patient for reversal surgery. Patient scheduled for OR procedure as per surgery on 08/08/18. Pt refusing to go to [facility] facility at this time. F/u Case Mgmt recs. Pt seen, examined with, and plan discussed with Dr. Denise, attending physician. Morris Connolly DO PGY-1, Lead Software Development Engineer Pager #[phone] <Franki Denise - Last Filed: 07/28/18 19:07> Objective - Vital Signs/Intake and Output Vital Signs (last 24 hours): Temp Pulse Resp BP Pulse Ox 98.4 F 120 H 20 112/76 96 07/28/18 15:30 07/28/18 15:30 07/28/18 15:30 07/28/18 15:30 07/28/18 15:30 Intake and Output: 07/28/18 07/29/18 18:59 06:59 Intake Total 500 Output Total 1 Balance 499 - Medications Medications: Current Medications Acetaminophen (Tylenol 650mg/20.3ml Solution Ud) 975 mg GT Q8H PRN PRN Reason: Pain, Mild (1-3) Last Admin: 07/25/18 18:58 Dose: 975 mg Benzocaine/Menthol (Cepacol Sore Throat) 1 sravan MT Q2H PRN PRN Reason: Sore Throat Last Admin: 07/28/18 10:49 Dose: 1 sravan Calcium Acetate (Phoslo) 667 mg GT TIDCC [facility] Last Admin: 07/28/18 17:24 Dose: 667 mg Cholestyramine Resin (Questran) 4 gm PO BID [facility] Last Admin: 07/28/18 17:25 Dose: 4 gm Dextrose (Dextrose 50% Inj) 0 ml IV STAT PRN; Protocol PRN Reason: Hypoglycemia Protocol Ergocalciferol (Drisdol 50,000 Intl Units Cap) 1 cap PO Q7D [facility] Stop: 09/14/18 10:01 Last Admin: 07/27/18 11:00 Dose: 1 cap Escitalopram Oxalate (Lexapro) 20 mg GT DAILY [facility] Last Admin: 07/28/18 10:46 Dose: 20 mg Fluticasone Propionate (Flonase) 2 spr BRITTANY DAILY [facility] Last Admin: 07/28/18 11:15 Dose: 1 sprays Gentamicin Sulfate (Gentamicin 0.1%) 0 gm TOP TID [facility] Last Admin: 07/28/18 17:31 Dose: 1 applic Glucagon (Glucagen Diagnostic Kit) 0 mg IM STAT PRN; Protocol PRN Reason: Hypoglycemia Protocol Guaifenesin (Robitussin) 100 mg PO Q4H PRN PRN Reason: Cough Last Admin: 07/28/18 17:38 Dose: 100 mg Hydromorphone HCl (Dilaudid) 1 mg IVP Q3H PRN PRN Reason: Pain, moderate (4-7) Last Admin: 07/28/18 17:27 Dose: 1 mg Hydroxyzine HCl (Atarax) 25 mg PO Q6H PRN PRN Reason: Anxiety Last Admin: 07/28/18 17:39 Dose: 25 mg Meropenem 1 gm/ Sodium (Chloride) 100 mls @ 100 mls/hr IVPB Q8H [facility]; Protocol Last Admin: 07/28/18 16:38 Dose: Not Given Micafungin Sodium 100 mg/ (Sodium Chloride) 100 mls @ 100 mls/hr IV Q24H [facility]; Protocol Last Admin: 07/27/18 22:59 Dose: 100 mls/hr Vancomycin HCl 1,000 mg/ (Sodium Chloride) 250 mls @ 166.6 mls/hr IVPB Q12H [facility]; Protocol Stop: 07/29/18 17:01 Last Admin: 07/28/18 17:26 Dose: 166.6 mls/hr Dextrose (Dextrose 5% In Water 1000 Ml) 1,000 mls @ 0 mls/hr IV .Q0M PRN; Protocol PRN Reason: Hypoglycemia Protocol Insulin Human Regular (Novolin R) 0 unit SC ACHS [facility]; Protocol Last Admin: 07/28/18 16:43 Dose: Not Given Ipratropium [place] (Atrovent) 0.5 mg IH RQ6 [facility] Last Admin: 07/28/18 13:15 Dose: Not Given Loperamide HCl (Imodium) 1 mg PO Q2H PRN PRN Reason: Diarrhea Last Admin: 07/28/18 10:48 Dose: 1 mg Loratadine (Claritin) 10 mg PO DAILY [facility] Last Admin: 07/28/18 10:47 Dose: 10 mg Lorazepam (Ativan) 1 mg IVP BID [facility] Last Admin: 07/28/18 17:26 Dose: 1 mg Metoprolol Tartrate (Lopressor) 12.5 mg PEG BID [facility] Last Admin: 07/28/18 17:24 Dose: 12.5 mg Mupirocin (Bactroban Ointment) 0 gm TOP BID [facility] Last Admin: 07/28/18 17:24 Dose: 1 oin Nicotine (Nicoderm Cq) 1 patch TD DAILY [facility] Last Admin: 07/28/18 10:47 Dose: 1 patch Ondansetron HCl (Zofran Inj) 4 mg IVP Q6H PRN PRN Reason: Nausea/Vomiting Last Admin: 07/28/18 17:38 Dose: 4 mg Oxycodone HCl (Oxycodone Immediate Release Tab) 10 mg PO Q6 PRN PRN Reason: Pain, severe (8-10) Last Admin: 07/28/18 15:15 Dose: 10 mg Pantoprazole Sodium (Protonix Susp) 40 mg PO DAILY [facility] Last Admin: 07/28/18 10:47 Dose: 40 mg Saliva Substitute (Mouth Kote 236 Ml) 0 ml MM Q6 PRN PRN Reason: Dry mouth Trazodone HCl (Desyrel) 50 mg PO HS [facility] Last Admin: 07/27/18 21:06 Dose: 50 mg Vitamin A (Vitamin A & D Oint Ud Foilpak) 1 ea TOP Q8 PRN PRN Reason: dry lips Vitamin E (Vitamin E 400 Units Cap) 400 intlu GT DAILY [facility] Last Admin: 07/28/18 10:46 Dose: 400 intlu - Labs Labs: 07/28/18 08:09 07/28/18 08:09 PT 14.3 SECONDS (9.7-12.2) H 06/10/18 07:05 INR 1.3 06/10/18 07:05 APTT 33 SECONDS (21-34) 05/25/18 06:16 Attending/Attestation - Attestation I have personally seen and examined this patient.: Yes I have fully participated in the care of the patient.: Yes I have reviewed all pertinent clinical information, including history, physical exam and plan: Yes Notes (Text): 07/28/18 19:04 Patient was seen and examined at 8:00 AM 07/28/18 654 P Care of this patient was discussed with the resident. Upon ROS: 3 nonbloody watery bowel movements since yesterday Clear Rhinorrhea has improved NO soreness in throat Still with generalized abdominal pain Patient in better spirits today Also on Exam: NO signs of physical distress on exam HEENT: nasal turbinates are less edematous and less erythematous, NO cervi tete/supraclavicular/submandibular lymphadenopathy, NO pharyngeal erythema/exudate Cardio: NS1, NS2, NO M/R/G Resp: CTA B/L, NO R/R/W GI: BSX4 are present, ND, NT to palpation at the time of my exam, Central abdominal scar appears to be healing well, Wound vac in place, Gtube Ext: Pulses are strong and equal, Capillary Refill is 2 seconds, NO edema Neuro: CN II through XII are grossly intact Rhinorrhea has improved with Flonase Mupirocin Topical ordered 2x/day to be applied to the midline surgical scar area as there appears to be a superfical tear in this area without surrounding signs of cellulitis Vitals are stable and HR is below 100s at the time of my exam NO fevers noted IV antibiotics (Micofungin, Meropenem, Vancomycin) last dose as per ID on 07/30/18 for treatment of Enterococcus in blood (07/16/18), Pseudomonas at PEG Tube insertion site (07/12/18) and Pseudomonas/Chula at Surgical Site culture (07/12/18): Repeat Blood Culture 07/18/18 showed NO growth at 5 days Repeat Blood Culture 07/24/18 is negative to date Surgery planned for 08/08/18 Franki Denise D.O.
--- NOTE | 2018-07-28 20:26 | CP.PCM.PN ---
Subjective - Date & Time of Evaluation Date of Evaluation: 07/27/18 Time of Evaluation: 12:00 - Subjective Subjective: No complaints. Objective - Vital Signs/Intake and Output Vital Signs (last 24 hours): Temp Pulse Resp BP Pulse Ox 98.4 F 120 H 20 112/76 96 07/28/18 15:30 07/28/18 15:30 07/28/18 15:30 07/28/18 15:30 07/28/18 15:30 Intake and Output: 07/28/18 07/29/18 18:59 06:59 Intake Total 500 Output Total 1 Balance 499 - Medications Medications: Current Medications Acetaminophen (Tylenol 650mg/20.3ml Solution Ud) 975 mg GT Q8H PRN PRN Reason: Pain, Mild (1-3) Last Admin: 07/25/18 18:58 Dose: 975 mg Benzocaine/Menthol (Cepacol Sore Throat) 1 sravan MT Q2H PRN PRN Reason: Sore Throat Last Admin: 07/28/18 10:49 Dose: 1 sravan Calcium Acetate (Phoslo) 667 mg GT TIDCC [facility] Last Admin: 07/28/18 17:24 Dose: 667 mg Cholestyramine Resin (Questran) 4 gm PO BID [facility] Last Admin: 07/28/18 17:25 Dose: 4 gm Dextrose (Dextrose 50% Inj) 0 ml IV STAT PRN; Protocol PRN Reason: Hypoglycemia Protocol Ergocalciferol (Drisdol 50,000 Intl Units Cap) 1 cap PO Q7D [facility] Stop: 09/14/18 10:01 Last Admin: 07/27/18 11:00 Dose: 1 cap Escitalopram Oxalate (Lexapro) 20 mg GT DAILY [facility] Last Admin: 07/28/18 10:46 Dose: 20 mg Fluticasone Propionate (Flonase) 2 spr BRITTANY DAILY [facility] Last Admin: 07/28/18 11:15 Dose: 1 sprays Gentamicin Sulfate (Gentamicin 0.1%) 0 gm TOP TID [facility] Last Admin: 07/28/18 17:31 Dose: 1 applic Glucagon (Glucagen Diagnostic Kit) 0 mg IM STAT PRN; Protocol PRN Reason: Hypoglycemia Protocol Guaifenesin (Robitussin) 100 mg PO Q4H PRN PRN Reason: Cough Last Admin: 07/28/18 17:38 Dose: 100 mg Hydromorphone HCl (Dilaudid) 1 mg IVP Q3H PRN PRN Reason: Pain, moderate (4-7) Last Admin: 07/28/18 17:27 Dose: 1 mg Hydroxyzine HCl (Atarax) 25 mg PO Q6H PRN PRN Reason: Anxiety Last Admin: 07/28/18 17:39 Dose: 25 mg Meropenem 1 gm/ Sodium (Chloride) 100 mls @ 100 mls/hr IVPB Q8H [facility]; Protocol Last Admin: 07/28/18 16:38 Dose: Not Given Micafungin Sodium 100 mg/ (Sodium Chloride) 100 mls @ 100 mls/hr IV Q24H [facility]; Protocol Last Admin: 07/27/18 22:59 Dose: 100 mls/hr Vancomycin HCl 1,000 mg/ (Sodium Chloride) 250 mls @ 166.6 mls/hr IVPB Q12H [facility]; Protocol Stop: 07/29/18 17:01 Last Admin: 07/28/18 17:26 Dose: 166.6 mls/hr Dextrose (Dextrose 5% In Water 1000 Ml) 1,000 mls @ 0 mls/hr IV .Q0M PRN; Protocol PRN Reason: Hypoglycemia Protocol Insulin Human Regular (Novolin R) 0 unit SC ACHS [facility]; Protocol Last Admin: 07/28/18 16:43 Dose: Not Given Ipratropium [place] (Atrovent) 0.5 mg IH RQ6 [facility] Last Admin: 07/28/18 13:15 Dose: Not Given Loperamide HCl (Imodium) 1 mg PO Q2H PRN PRN Reason: Diarrhea Last Admin: 07/28/18 10:48 Dose: 1 mg Loratadine (Claritin) 10 mg PO DAILY [facility] Last Admin: 07/28/18 10:47 Dose: 10 mg Lorazepam (Ativan) 1 mg IVP BID [facility] Last Admin: 07/28/18 17:26 Dose: 1 mg Metoprolol Tartrate (Lopressor) 12.5 mg PEG BID [facility] Last Admin: 07/28/18 17:24 Dose: 12.5 mg Mupirocin (Bactroban Ointment) 0 gm TOP BID [facility] Last Admin: 07/28/18 17:24 Dose: 1 oin Nicotine (Nicoderm Cq) 1 patch TD DAILY [facility] Last Admin: 07/28/18 10:47 Dose: 1 patch Ondansetron HCl (Zofran Inj) 4 mg IVP Q6H PRN PRN Reason: Nausea/Vomiting Last Admin: 07/28/18 17:38 Dose: 4 mg Oxycodone HCl (Oxycodone Immediate Release Tab) 10 mg PO Q6 PRN PRN Reason: Pain, severe (8-10) Last Admin: 07/28/18 15:15 Dose: 10 mg Pantoprazole Sodium (Protonix Susp) 40 mg PO DAILY [facility] Last Admin: 07/28/18 10:47 Dose: 40 mg Saliva Substitute (Mouth Kote 236 Ml) 0 ml MM Q6 PRN PRN Reason: Dry mouth Trazodone HCl (Desyrel) 50 mg PO HS [facility] Last Admin: 07/27/18 21:06 Dose: 50 mg Vitamin A (Vitamin A & D Oint Ud Foilpak) 1 ea TOP Q8 PRN PRN Reason: dry lips Vitamin E (Vitamin E 400 Units Cap) 400 intlu GT DAILY [facility] Last Admin: 07/28/18 10:46 Dose: 400 intlu - Labs Labs: 07/28/18 08:09 07/28/18 08:09 PT 14.3 SECONDS (9.7-12.2) H 06/10/18 07:05 INR 1.3 06/10/18 07:05 APTT 33 SECONDS (21-34) 05/25/18 06:16 - Head Exam Head Exam: ATRAUMATIC - Eye Exam Eye Exam: Normal appearance - ENT Exam ENT Exam: Mucous Membranes Dry - Respiratory Exam Respiratory Exam: NORMAL BREATHING PATTERN - Cardiovascular Exam Cardiovascular Exam: +S1, +S2 - GI/Abdominal Exam GI & Abdominal Exam: Normal Bowel Sounds Assessment and Plan (1) Anemia Assessment & Plan: iron deficiency anemia resolved s/p IV iron anemia of chronic disease; will consider Procrit supplementation in an attempt to avoid further transfusions if hgb < 9 FOBT positive transfuse PRN Status: Acute
--- NOTE | 2018-07-28 20:26 | CP.PCM.PN ---
Subjective - Date & Time of Evaluation Date of Evaluation: 07/28/18 Time of Evaluation: 13:00 - Subjective Subjective: No complaints. Objective - Vital Signs/Intake and Output Vital Signs (last 24 hours): Temp Pulse Resp BP Pulse Ox 98.4 F 120 H 20 112/76 96 07/28/18 15:30 07/28/18 15:30 07/28/18 15:30 07/28/18 15:30 07/28/18 15:30 Intake and Output: 07/28/18 07/29/18 18:59 06:59 Intake Total 500 Output Total 1 Balance 499 - Medications Medications: Current Medications Acetaminophen (Tylenol 650mg/20.3ml Solution Ud) 975 mg GT Q8H PRN PRN Reason: Pain, Mild (1-3) Last Admin: 07/25/18 18:58 Dose: 975 mg Benzocaine/Menthol (Cepacol Sore Throat) 1 sravan MT Q2H PRN PRN Reason: Sore Throat Last Admin: 07/28/18 10:49 Dose: 1 sravan Calcium Acetate (Phoslo) 667 mg GT TIDCC [facility] Last Admin: 07/28/18 17:24 Dose: 667 mg Cholestyramine Resin (Questran) 4 gm PO BID [facility] Last Admin: 07/28/18 17:25 Dose: 4 gm Dextrose (Dextrose 50% Inj) 0 ml IV STAT PRN; Protocol PRN Reason: Hypoglycemia Protocol Ergocalciferol (Drisdol 50,000 Intl Units Cap) 1 cap PO Q7D [facility] Stop: 09/14/18 10:01 Last Admin: 07/27/18 11:00 Dose: 1 cap Escitalopram Oxalate (Lexapro) 20 mg GT DAILY [facility] Last Admin: 07/28/18 10:46 Dose: 20 mg Fluticasone Propionate (Flonase) 2 spr BRITTANY DAILY [facility] Last Admin: 07/28/18 11:15 Dose: 1 sprays Gentamicin Sulfate (Gentamicin 0.1%) 0 gm TOP TID [facility] Last Admin: 07/28/18 17:31 Dose: 1 applic Glucagon (Glucagen Diagnostic Kit) 0 mg IM STAT PRN; Protocol PRN Reason: Hypoglycemia Protocol Guaifenesin (Robitussin) 100 mg PO Q4H PRN PRN Reason: Cough Last Admin: 07/28/18 17:38 Dose: 100 mg Hydromorphone HCl (Dilaudid) 1 mg IVP Q3H PRN PRN Reason: Pain, moderate (4-7) Last Admin: 07/28/18 17:27 Dose: 1 mg Hydroxyzine HCl (Atarax) 25 mg PO Q6H PRN PRN Reason: Anxiety Last Admin: 07/28/18 17:39 Dose: 25 mg Meropenem 1 gm/ Sodium (Chloride) 100 mls @ 100 mls/hr IVPB Q8H [facility]; Protocol Last Admin: 07/28/18 16:38 Dose: Not Given Micafungin Sodium 100 mg/ (Sodium Chloride) 100 mls @ 100 mls/hr IV Q24H [facility]; Protocol Last Admin: 07/27/18 22:59 Dose: 100 mls/hr Vancomycin HCl 1,000 mg/ (Sodium Chloride) 250 mls @ 166.6 mls/hr IVPB Q12H [facility]; Protocol Stop: 07/29/18 17:01 Last Admin: 07/28/18 17:26 Dose: 166.6 mls/hr Dextrose (Dextrose 5% In Water 1000 Ml) 1,000 mls @ 0 mls/hr IV .Q0M PRN; Protocol PRN Reason: Hypoglycemia Protocol Insulin Human Regular (Novolin R) 0 unit SC ACHS [facility]; Protocol Last Admin: 07/28/18 16:43 Dose: Not Given Ipratropium [place] (Atrovent) 0.5 mg IH RQ6 [facility] Last Admin: 07/28/18 13:15 Dose: Not Given Loperamide HCl (Imodium) 1 mg PO Q2H PRN PRN Reason: Diarrhea Last Admin: 07/28/18 10:48 Dose: 1 mg Loratadine (Claritin) 10 mg PO DAILY [facility] Last Admin: 07/28/18 10:47 Dose: 10 mg Lorazepam (Ativan) 1 mg IVP BID [facility] Last Admin: 07/28/18 17:26 Dose: 1 mg Metoprolol Tartrate (Lopressor) 12.5 mg PEG BID [facility] Last Admin: 07/28/18 17:24 Dose: 12.5 mg Mupirocin (Bactroban Ointment) 0 gm TOP BID [facility] Last Admin: 07/28/18 17:24 Dose: 1 oin Nicotine (Nicoderm Cq) 1 patch TD DAILY [facility] Last Admin: 07/28/18 10:47 Dose: 1 patch Ondansetron HCl (Zofran Inj) 4 mg IVP Q6H PRN PRN Reason: Nausea/Vomiting Last Admin: 07/28/18 17:38 Dose: 4 mg Oxycodone HCl (Oxycodone Immediate Release Tab) 10 mg PO Q6 PRN PRN Reason: Pain, severe (8-10) Last Admin: 07/28/18 15:15 Dose: 10 mg Pantoprazole Sodium (Protonix Susp) 40 mg PO DAILY [facility] Last Admin: 07/28/18 10:47 Dose: 40 mg Saliva Substitute (Mouth Kote 236 Ml) 0 ml MM Q6 PRN PRN Reason: Dry mouth Trazodone HCl (Desyrel) 50 mg PO HS [facility] Last Admin: 07/27/18 21:06 Dose: 50 mg Vitamin A (Vitamin A & D Oint Ud Foilpak) 1 ea TOP Q8 PRN PRN Reason: dry lips Vitamin E (Vitamin E 400 Units Cap) 400 intlu GT DAILY [facility] Last Admin: 07/28/18 10:46 Dose: 400 intlu - Labs Labs: 07/28/18 08:09 07/28/18 08:09 PT 14.3 SECONDS (9.7-12.2) H 06/10/18 07:05 INR 1.3 06/10/18 07:05 APTT 33 SECONDS (21-34) 05/25/18 06:16 - Head Exam Head Exam: ATRAUMATIC - Eye Exam Eye Exam: Normal appearance - ENT Exam ENT Exam: Mucous Membranes Dry - Respiratory Exam Respiratory Exam: NORMAL BREATHING PATTERN - Cardiovascular Exam Cardiovascular Exam: +S1, +S2 - GI/Abdominal Exam GI & Abdominal Exam: Normal Bowel Sounds Assessment and Plan (1) Anemia Assessment & Plan: iron deficiency anemia resolved s/p IV iron anemia of chronic disease; will consider Procrit supplementation in an attempt to avoid further transfusions if hgb < 9 FOBT positive transfuse PRN Status: Acute
--- NOTE | 2018-07-28 22:16 | CP.PCM.PN ---
Subjective - Date & Time of Evaluation Date of Evaluation: 07/28/18 Time of Evaluation: 15:15 - Subjective Subjective: dictated Objective - Vital Signs/Intake and Output Vital Signs (last 24 hours): Temp Pulse Resp BP Pulse Ox 98.4 F 120 H 20 112/76 96 07/28/18 15:30 07/28/18 15:30 07/28/18 15:30 07/28/18 15:30 07/28/18 15:30 Intake and Output: 07/28/18 07/29/18 18:59 06:59 Intake Total 500 Output Total 1 Balance 499 - Medications Medications: Current Medications Acetaminophen (Tylenol 650mg/20.3ml Solution Ud) 975 mg GT Q8H PRN PRN Reason: Pain, Mild (1-3) Last Admin: 07/25/18 18:58 Dose: 975 mg Benzocaine/Menthol (Cepacol Sore Throat) 1 sravan MT Q2H PRN PRN Reason: Sore Throat Last Admin: 07/28/18 10:49 Dose: 1 sravan Calcium Acetate (Phoslo) 667 mg GT TIDCC [facility] Last Admin: 07/28/18 17:24 Dose: 667 mg Cholestyramine Resin (Questran) 4 gm PO BID [facility] Last Admin: 07/28/18 17:25 Dose: 4 gm Dextrose (Dextrose 50% Inj) 0 ml IV STAT PRN; Protocol PRN Reason: Hypoglycemia Protocol Epoetin [place] (Procrit) 10,000 unit SC ONCE ONE Stop: 07/29/18 10:01 Ergocalciferol (Drisdol 50,000 Intl Units Cap) 1 cap PO Q7D [facility] Stop: 09/14/18 10:01 Last Admin: 07/27/18 11:00 Dose: 1 cap Escitalopram Oxalate (Lexapro) 20 mg GT DAILY [facility] Last Admin: 07/28/18 10:46 Dose: 20 mg Fluticasone Propionate (Flonase) 2 spr BRITTANY DAILY [facility] Last Admin: 07/28/18 11:15 Dose: 1 sprays Gentamicin Sulfate (Gentamicin 0.1%) 0 gm TOP TID [facility] Last Admin: 07/28/18 17:31 Dose: 1 applic Glucagon (Glucagen Diagnostic Kit) 0 mg IM STAT PRN; Protocol PRN Reason: Hypoglycemia Protocol Guaifenesin (Robitussin) 100 mg PO Q4H PRN PRN Reason: Cough Last Admin: 07/28/18 17:38 Dose: 100 mg Hydromorphone HCl (Dilaudid) 1 mg IVP Q3H PRN PRN Reason: Pain, moderate (4-7) Last Admin: 07/28/18 20:34 Dose: 1 mg Hydroxyzine HCl (Atarax) 25 mg PO Q6H PRN PRN Reason: Anxiety Last Admin: 07/28/18 17:39 Dose: 25 mg Meropenem 1 gm/ Sodium (Chloride) 100 mls @ 100 mls/hr IVPB Q8H [facility]; Protocol Last Admin: 07/28/18 16:38 Dose: Not Given Micafungin Sodium 100 mg/ (Sodium Chloride) 100 mls @ 100 mls/hr IV Q24H [facility]; Protocol Last Admin: 07/27/18 22:59 Dose: 100 mls/hr Vancomycin HCl 1,000 mg/ (Sodium Chloride) 250 mls @ 166.6 mls/hr IVPB Q12H [facility]; Protocol Stop: 07/29/18 17:01 Last Admin: 07/28/18 17:26 Dose: 166.6 mls/hr Dextrose (Dextrose 5% In Water 1000 Ml) 1,000 mls @ 0 mls/hr IV .Q0M PRN; Protocol PRN Reason: Hypoglycemia Protocol Insulin Human Regular (Novolin R) 0 unit SC ACHS [facility]; Protocol Last Admin: 07/28/18 21:32 Dose: Not Given Ipratropium [place] (Atrovent) 0.5 mg IH RQ6 [facility] Last Admin: 07/28/18 13:15 Dose: Not Given Loperamide HCl (Imodium) 1 mg PO Q2H PRN PRN Reason: Diarrhea Last Admin: 07/28/18 10:48 Dose: 1 mg Loratadine (Claritin) 10 mg PO DAILY [facility] Last Admin: 07/28/18 10:47 Dose: 10 mg Lorazepam (Ativan) 1 mg IVP BID [facility] Last Admin: 07/28/18 17:26 Dose: 1 mg Metoprolol Tartrate (Lopressor) 12.5 mg PEG BID [facility] Last Admin: 07/28/18 17:24 Dose: 12.5 mg Mupirocin (Bactroban Ointment) 0 gm TOP BID [facility] Last Admin: 07/28/18 17:24 Dose: 1 oin Nicotine (Nicoderm Cq) 1 patch TD DAILY [facility] Last Admin: 07/28/18 10:47 Dose: 1 patch Ondansetron HCl (Zofran Inj) 4 mg IVP Q6H PRN PRN Reason: Nausea/Vomiting Last Admin: 07/28/18 17:38 Dose: 4 mg Oxycodone HCl (Oxycodone Immediate Release Tab) 10 mg PO Q6 PRN PRN Reason: Pain, severe (8-10) Last Admin: 07/28/18 21:21 Dose: 10 mg Pantoprazole Sodium (Protonix Susp) 40 mg PO DAILY [facility] Last Admin: 07/28/18 10:47 Dose: 40 mg Saliva Substitute (Mouth Kote 236 Ml) 0 ml MM Q6 PRN PRN Reason: Dry mouth Trazodone HCl (Desyrel) 50 mg PO HS [facility] Last Admin: 07/28/18 21:21 Dose: 50 mg Vitamin A (Vitamin A & D Oint Ud Foilpak) 1 ea TOP Q8 PRN PRN Reason: dry lips Vitamin E (Vitamin E 400 Units Cap) 400 intlu GT DAILY [facility] Last Admin: 07/28/18 10:46 Dose: 400 intlu - Labs Labs: 07/28/18 08:09 07/28/18 08:09 PT 14.3 SECONDS (9.7-12.2) H 06/10/18 07:05 INR 1.3 06/10/18 07:05 APTT 33 SECONDS (21-34) 05/25/18 06:16
[2018-07-28] MEDS: Micafungin 100 MG in Sodium Chloride 0.9% 100 ML IV SCH (22:23)
[2018-07-29] MEDS: HYDROmorphone 1 mg/ml ISec IVP PRN ×7 (00:17→22:04)
[2018-07-29] MEDS: Meropenem 1 GM in Sodium Chloride 0.9% 100 ML IVPB SCH ×3 (00:23→15:57)
[2018-07-29] MEDS: Acetaminophen 650mg/20.3ml solution UD GT PRN (00:38)
--- NOTE | 2018-07-29 01:50 | PN ---
DATE: 07/28/2018 SUBJECTIVE: The patient is afebrile. She feels better. She still had lot of secretions in the in the NG suction, but it was clear. She denies any complaints. PICC line is unremarkable. PHYSICAL EXAMINATION: LUNGS: Clear. HEART: Remains tachycardic. ABDOMEN: Soft. There is a small area which remains with a wound VAC, not much drainage there. Gastrostomy tube is working. EXTREMITIES: Have no edema. ASSESSMENT AND PLAN: We are closely approaching in two more days. I want to discontinue all the antibiotics. She will be waiting for her final surgery. She says which would be in next week, so we are hoping for that. 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 We are hoping her to have the surgery and leave the hospital when stable. Guero Rivera MD
[2018-07-29] MEDS: Ipratropium 0.02% Inhal Soln (0.5 mg/2.5 ml) UD IH SCH ×4 (02:25→20:31)
[2018-07-29 06:39] LABS: BASO # 0.1 K/uL (0.0-0.2); BASO % 0.6 % (0.0-2.0); EOS # 1.1 K/uL (0.0-0.7); EOS % 11.7 % (0.0-4.0); HEMOGLOBIN 8.6 g/dL (11.0-16.0); LYMPH # 2.3 K/uL (1.0-4.3); LYMPH % 23.5 % (20.0-40.0); MEAN CELL VOLUME 85.4 fL (81.0-99.0); MEAN CORPUSCULAR HEMOGLOBIN 28.3 pg (27.0-31.0); MEAN CORPUSCULAR HGB CONC 33.1 g/dL (33.0-37.0); MEAN PLATELET VOLUME 7.2 fL (7.2-11.7); MONO # 0.6 K/uL (0.0-0.8); MONO % 6.5 % (0.0-10.0); NEUT # 5.6 K/uL (1.8-7.0); NEUT % 57.7 % (50.0-75.0); RBC 3.03 Mil/uL (3.80-5.20); RED CELL DISTRIBUTION WIDTH 18.1 % (11.5-14.5); WHITE BLOOD COUNT 9.6 K/uL (4.8-10.8)
[2018-07-29 07:11] LABS: ALB/GLOB RATIO 0.9 (1.0-2.1); ALBUMIN 2.7 g/dL (3.5-5.0); ALT/SGPT 21 U/L (9-52); AST/SGOT 16 U/L (14-36); BLOOD UREA NITROGEN 7 mg/dL (7-17); CALCIUM 8.1 mg/dl (8.6-10.4); GFR NON-AFRICAN AMERICAN > 60
[2018-07-29] MEDS: (Novolin R) Insulin Human Regular 100 units/ml vial SC SCH ×4 (07:57→21:46)
[2018-07-29] MEDS ORDERED: EPOETIN ALFA 10,000 UNIT/ML ML SC ONE (10:00)
--- NOTE | 2018-07-29 10:19 | CP.PCM.PN ---
<Morris Connolly - Last Filed: 07/29/18 17:13> Subjective - Date & Time of Evaluation Date of Evaluation: 07/29/18 Time of Evaluation: 07:20 - Subjective Subjective: Medicine Progress Note for Hospitalist Service Pt seen and examined at bedside this am. States she slept well overnight, but reports profuse sweating. Pt had temp overnight of 100.5. Currently on antibiotic therapy as per ID recs. Denies chest pain, sob, n/v/d/c, abd pain, urinary complaints, or other symptoms. Objective - Vital Signs/Intake and Output Vital Signs (last 24 hours): Temp Pulse Resp BP Pulse Ox 98.4 F 98 H 18 122/86 97 07/29/18 07:20 07/29/18 07:20 07/29/18 07:20 07/29/18 07:20 07/29/18 07:20 Intake and Output: 07/29/18 07/29/18 06:59 18:59 Intake Total 1650 Output Total 500 Balance 1150 - Medications Medications: Current Medications Acetaminophen (Tylenol 650mg/20.3ml Solution Ud) 975 mg GT Q8H PRN PRN Reason: Pain, Mild (1-3) Last Admin: 07/29/18 00:38 Dose: 975 mg Benzocaine/Menthol (Cepacol Sore Throat) 1 sravan MT Q2H PRN PRN Reason: Sore Throat Last Admin: 07/28/18 10:49 Dose: 1 sravan Calcium Acetate (Phoslo) 667 mg GT TIDCC [facility] Last Admin: 07/29/18 08:29 Dose: 667 mg Cholestyramine Resin (Questran) 4 gm PO BID [facility] Last Admin: 07/28/18 17:25 Dose: 4 gm Dextrose (Dextrose 50% Inj) 0 ml IV STAT PRN; Protocol PRN Reason: Hypoglycemia Protocol Ergocalciferol (Drisdol 50,000 Intl Units Cap) 1 cap PO Q7D [facility] Stop: 09/14/18 10:01 Last Admin: 07/27/18 11:00 Dose: 1 cap Escitalopram Oxalate (Lexapro) 20 mg GT DAILY [facility] Last Admin: 07/28/18 10:46 Dose: 20 mg Fluticasone Propionate (Flonase) 2 spr BRITTANY DAILY [facility] Last Admin: 07/28/18 11:15 Dose: 1 sprays Gentamicin Sulfate (Gentamicin 0.1%) 0 gm TOP TID [facility] Last Admin: 07/28/18 17:31 Dose: 1 applic Glucagon (Glucagen Diagnostic Kit) 0 mg IM STAT PRN; Protocol PRN Reason: Hypoglycemia Protocol Guaifenesin (Robitussin) 100 mg PO Q4H PRN PRN Reason: Cough Last Admin: 07/28/18 17:38 Dose: 100 mg Hydromorphone HCl (Dilaudid) 1 mg IVP Q3H PRN PRN Reason: Pain, moderate (4-7) Last Admin: 07/29/18 09:14 Dose: 1 mg Hydroxyzine HCl (Atarax) 25 mg PO Q6H PRN PRN Reason: Anxiety Last Admin: 07/29/18 00:38 Dose: 25 mg Meropenem 1 gm/ Sodium (Chloride) 100 mls @ 100 mls/hr IVPB Q8H [facility]; Protocol Last Admin: 07/29/18 08:29 Dose: 100 mls/hr Micafungin Sodium 100 mg/ (Sodium Chloride) 100 mls @ 100 mls/hr IV Q24H [facility]; Protocol Last Admin: 07/28/18 22:23 Dose: 100 mls/hr Vancomycin HCl 1,000 mg/ (Sodium Chloride) 250 mls @ 166.6 mls/hr IVPB Q12H [facility]; Protocol Stop: 07/29/18 17:01 Last Admin: 07/29/18 04:34 Dose: 166.6 mls/hr Dextrose (Dextrose 5% In Water 1000 Ml) 1,000 mls @ 0 mls/hr IV .Q0M PRN; Protocol PRN Reason: Hypoglycemia Protocol Insulin Human Regular (Novolin R) 0 unit SC ACHS [facility]; Protocol Last Admin: 07/29/18 07:57 Dose: Not Given Ipratropium [place] (Atrovent) 0.5 mg IH RQ6 [facility] Last Admin: 07/29/18 07:37 Dose: 0.5 mg Loperamide HCl (Imodium) 1 mg PO Q2H PRN PRN Reason: Diarrhea Last Admin: 07/28/18 10:48 Dose: 1 mg Loratadine (Claritin) 10 mg PO DAILY [facility] Last Admin: 07/28/18 10:47 Dose: 10 mg Lorazepam (Ativan) 1 mg IVP BID [facility] Last Admin: 07/28/18 17:26 Dose: 1 mg Metoprolol Tartrate (Lopressor) 12.5 mg PEG BID [facility] Last Admin: 07/28/18 17:24 Dose: 12.5 mg Mupirocin (Bactroban Ointment) 0 gm TOP BID [facility] Last Admin: 07/28/18 17:24 Dose: 1 oin Nicotine (Nicoderm Cq) 1 patch TD DAILY [facility] Last Admin: 07/28/18 10:47 Dose: 1 patch Ondansetron HCl (Zofran Inj) 4 mg IVP Q6H PRN PRN Reason: Nausea/Vomiting Last Admin: 07/29/18 00:37 Dose: 4 mg Oxycodone HCl (Oxycodone Immediate Release Tab) 10 mg PO Q6 PRN PRN Reason: Pain, severe (8-10) Last Admin: 07/28/18 21:21 Dose: 10 mg Pantoprazole Sodium (Protonix Susp) 40 mg PO DAILY [facility] Last Admin: 07/28/18 10:47 Dose: 40 mg Saliva Substitute (Mouth Kote 236 Ml) 0 ml MM Q6 PRN PRN Reason: Dry mouth Trazodone HCl (Desyrel) 50 mg PO HS [facility] Last Admin: 07/28/18 21:21 Dose: 50 mg Vitamin A (Vitamin A & D Oint Ud Foilpak) 1 ea TOP Q8 PRN PRN Reason: dry lips Vitamin E (Vitamin E 400 Units Cap) 400 intlu GT DAILY [facility] Last Admin: 07/28/18 10:46 Dose: 400 intlu - Labs Labs: 07/29/18 06:31 07/29/18 06:31 PT 14.3 SECONDS (9.7-12.2) H 06/10/18 07:05 INR 1.3 06/10/18 07:05 APTT 33 SECONDS (21-34) 05/25/18 06:16 - Constitutional Appears: Non-toxic, No Acute Distress, Chronically Ill - Head Exam Head Exam: ATRAUMATIC, NORMOCEPHALIC - Eye Exam Eye Exam: EOMI, Normal appearance, PERRL - ENT Exam ENT Exam: Mucous Membranes Moist, Normal Oropharynx - Respiratory Exam Respiratory Exam: Clear to Ausculation Bilateral, NORMAL BREATHING PATTERN. absent: Rales, Rhonchi, Wheezes - Cardiovascular Exam Cardiovascular Exam: REGULAR RHYTHM, +S1, +S2. absent: Gallop, Rubs, Murmur - GI/Abdominal Exam GI & Abdominal Exam: Soft, Normal Bowel Sounds. absent: Distended, Firm, Guarding, Rigid, Tenderness, Organomegaly, Rebound Additional comments: Abdominal wound vac and gastrostomy tube in place, c/d/i - Extremities Exam Extremities Exam: Full ROM, Normal Capillary Refill, Normal Inspection. absent: Calf Tenderness, Pedal Edema - Back Exam Back Exam: Full ROM, NORMAL INSPECTION. 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 Harley) consulted - pt scheduled for reversal procedure on 08/08/18 Wound vac to continuous suction, to be replaced Q72hrs Heme/onc (Dr. Cash) consulted for Fe status - repeat ferritin 185, no need for iron infusion at this time, continue to monitor Other cultures: 06/22/18: abd incision => Pseudomonas aeruginosa sensitive to Meropenem 06/22/18: Peg site => Pseudomonas aeruginosa sensitive to Meropenem 05/14/18: Peritoneal fluid => Pseudomonas aeruginosa sensitive to Meropenem 05/23/18: Wound cx => Chula albicans 05/15/18, 05/22/18: Blood cx => no growth 05/22/18: Urine cx => no growth 05/31/18: Incision site => Enterococcus faecalis, Acinetobacter baumannii 06/03/18: Stool cxs => No Salmonella, Shigella, or Campylobacter isolates 06/13/18: Repeat wound cx => Coag-neg Staph, Enterococcus raffinosus 07/12/18 Repeat wound cx growing Pseudomonas and Chula [place]us[place]iae 07/14/18 repeat blood cxs NG 07/15/18 repeat blood cxs through central line NG 07/15/18 Sputum cx no growth 07/15/18 Urine cx no growth 07/16/18 blood culture x2 via PICC line grew E. faecalis sensitive to vancomycin -Echocardiogram (07/18) shows EF approximately 56%, AV mildly thickened, MV moderately thickened. No vegetation. 07/18/18: NG for 4 days Repeat cxs drawn 07/24/18 from peripheral and PICC lines, no growth to date Pt spiked temp last evening of 100.5, repeat blood and urine cxs ordered this am, f/u flu Ab PICC line reflushed again with Cath-Artem at bedside, blood return observed this am Antibiotics: Continue Meropenem 1 g q 8 h IVPB ; restarted as per ID due to pos abd wound cx (07/12) Vancomycin 1 g IV q 12 h started 07/16 Cipro 400 mg IV q 12h d/c'd (started 06/02/18, last day 06/16/18) Flagyl 500 mg IVPB q 8 h completed (active from 05/15/18-06/19/18) Micafungin 100mg IV Q24hrs Continue Gentamicin 0.1% TOP TID apply cream to peg tube site Per ID: c/w antibiotics for total of 2 weeks therapy; will notify ID about new temp spike overnight while on anbx F/u vitamin levels and replace as needed: Vit D < 12.8, 85548 U q1 wk x 8 wks B12 707, wnl; repeat B12 508 Folate 12.6, wnl Vit A 42, wnl Alpha vit E 5.6, wnl Zinc level wnl Vit A, B1, B6, E levels reordered on 06/15 Vit B1: inappropriately submitted, 06/01/18 valve acceptable Vit B6: 5.9, wnl Vit A, E collected Repeat Vitamin levels ordered on 07/08, f/u results 07/08: Pre-albumin 11.6, B12 508, 25-OH vit D < 12.8, vit A 33, vit E wnl As per demo event specialist recs on 07/15, feeds changed to Jevity 1.5 with goal rate 50 mL C/w Tylenol 975 mg liquid q 8h, Dilaudid 1 mg q 3 h prn, Zofran 4 mg IV q 6 h prn; Oxycodone IR 10 mg q6h prn Fever, possible sepsis - Temp overnight as discussed above - abdominal wound culture shows chula and pseudomonas - chest x ray - lungs clear to auscultation b/l, no acute findings - Repeat portable chest x ray 07/18 - in situ NGT, the tip of which overlies the lower mediastinum and must be advanced. no acute infiltrates. - PICC Line removed(07/17) - catheter tip culture is negative for growth - New PICC line placed by IR (Dr. Peraza) on 07/22/18 - f/u sputum cultures - normal renetta - Urine culture - no growth, final - WBC 07/28 - 8.3 -F/u Bl Doppler to rule out DVT - no DVT bilaterally -VBG/lactate level - ph: 7.45, pCO2: 39, lactate 0.9 - Normal saline @ 100mls/hr - continue tylenol for fevers -abx: Meropenem 1 g q 8 h IVPB, Vancomycin 1 g IV q 12 h - random vanc is 11.2 - blood culture through picc line grew E. faecalis sensitive to vancomycin -continue with current abx as per ID; last day on anbx will be 07/30/18 -F/u repeat blood and urine cxs ordered today Tachycardia, persistent, hx into 110s-130s - possible etiologies include pain, infection, anxiety Today HR - 98, continue to monitor and trend Ativan prn, Dilaudid prn C/w metoprolol tartrate 12.5 mg bid via PEG tube Diarrhea- suspect 2/2 PO intake by patient C. Diff (05/22, 05/24, 05/28, 07/17) neg Stool ova and parasites (05/25/18) neg Stool leukocytes (05/25/18) neg Imodium 1 mg PO q 2h prn Anxiety Leadership Development Manager consulted - pt refusing at this time Psych consulted (Dr. Reyez) - managing Ativan, c/w prn Lexapro 20 mg GT daily (increased as per psych recs) Insomnia - Benadryl d/c'd, clinically not indicated Anemia, acute, stable, pt denies blood in stool Total 2 PRBC (on 05/16) and 4 FFP (on 05/15 and 05/16) H/H is stable Iron 16, TIBC 205, % sat 4.7, repeat ferritin 185 after Ferrlecit; repeat ferritin this am [address] Cash, consider Procrit supplementation in attempt to avoid further transfusions if Hgb < 9; transfuse prn Thrombocytosis - suspect reactive to pain, surgery 07/28 platelets: 263 DM2, controlled From prior note: admittedly non-compliant, has not taken Januvia for 1 y Accuchecks q6h Hypoglycemic protocol ISS regular HgbA1c 5.8 Hx gastric bypass surgery Hypercholesterolemia, untx LDL < 30, HDL < 23, Chol 59, TG 195 (06/03/18) Hx gastric bypass surgery Questran 4 g PO bid via PEG tube Hx HTN, controlled Metoprolol 12.5 mg bid via PEG tube Hx Asthma - Chronic Continue to monitor Atrovent prn Continue Robitussin prn Continue Claritin 10 daily for allergy sxs Added Flonase for rhinorrhea Nicotine use disorder - Chronic From prior note: 1 ppd x 20 y, 1/2 ppd x 3 y C/w Nicoderm patch Electrolyte imbalance - Hypokalemia, Hypomagnesemia, resolving F/u am labs, replete as needed Mg 1.6, K 3.9 - continue to monitor PPX, Diet, Dispo Hydrocortisone 1% cream top tid for R upper inner arm macular rash - improved Vitamin A+D top q 8h prn for dry lips Saliva substitute q 6 h prn for dry mouth IVF not indicated at this time VTE ppx: Lovenox 40 subQ d, SCDs, encourage ambulation GI ppx: Protonix 40 mg IV bid, Florastor bid Code status: Full code Continue PT services, follow up recs Dispo: Continue to optimize patient for reversal surgery. Patient scheduled for OR procedure as per surgery on 08/08/18. Pt refusing to go to LTACH facility at this time. F/u Case Mgmt recs. If repeat blood cxs today end up being positive, consider removal of PICC line and send tip of catheter for further culture. F/u ID recs, pt currently on Meropenem, Vancomycin, and Micafungin. Pt seen, examined with, and plan discussed with Dr. Denise, attending physician. Morris Connolly DO PGY-1, [employer] Pager #[phone] <Franki Denise - Last Filed: 07/29/18 19:48> Objective - Vital Signs/Intake and Output Vital Signs (last 24 hours): Temp Pulse Resp BP Pulse Ox 98.8 F 112 H 20 136/92 H 95 07/29/18 18:09 07/29/18 18:09 07/29/18 18:09 07/29/18 18:09 07/29/18 15:00 Intake and Output: 07/29/18 07/30/18 18:59 06:59 Output Total 575 Balance -575 - Medications Medications: Current Medications Acetaminophen (Tylenol 650mg/20.3ml Solution Ud) 975 mg GT Q8H PRN PRN Reason: Pain, Mild (1-3) Last Admin: 07/29/18 00:38 Dose: 975 mg Benzocaine/Menthol (Cepacol Sore Throat) 1 sravan MT Q2H PRN PRN Reason: Sore Throat Last Admin: 07/29/18 18:03 Dose: 1 sravan Calcium Acetate (Phoslo) 667 mg GT TIDCC [facility] Last Admin: 07/29/18 18:06 Dose: 667 mg Cholestyramine Resin (Questran) 4 gm PO BID [facility] Last Admin: 07/29/18 18:05 Dose: 4 gm Dextrose (Dextrose 50% Inj) 0 ml IV STAT PRN; Protocol PRN Reason: Hypoglycemia Protocol Ergocalciferol (Drisdol 50,000 Intl Units Cap) 1 cap PO Q7D [facility] Stop: 09/14/18 10:01 Last Admin: 07/27/18 11:00 Dose: 1 cap Escitalopram Oxalate (Lexapro) 20 mg GT DAILY [facility] Last Admin: 07/29/18 10:49 Dose: 20 mg Fluticasone Propionate (Flonase) 2 spr BRITTANY DAILY [facility] Last Admin: 07/29/18 10:51 Dose: 2 sprays Gentamicin Sulfate (Gentamicin 0.1%) 0 gm TOP TID [facility] Last Admin: 07/29/18 18:08 Dose: 1 applic Glucagon (Glucagen Diagnostic Kit) 0 mg IM STAT PRN; Protocol PRN Reason: Hypoglycemia Protocol Guaifenesin (Robitussin) 100 mg PO Q4H PRN PRN Reason: Cough Last Admin: 07/29/18 18:06 Dose: 100 mg Hydromorphone HCl (Dilaudid) 1 mg IVP Q3H PRN PRN Reason: Pain, moderate (4-7) Last Admin: 07/29/18 19:00 Dose: 1 mg Hydroxyzine HCl (Atarax) 25 mg PO Q6H PRN PRN Reason: Anxiety Last Admin: 07/29/18 18:06 Dose: 25 mg Meropenem 1 gm/ Sodium (Chloride) 100 mls @ 100 mls/hr IVPB Q8H [facility]; Protocol Last Admin: 07/29/18 15:57 Dose: 100 mls/hr Micafungin Sodium 100 mg/ (Sodium Chloride) 100 mls @ 100 mls/hr IV Q24H [facility]; Protocol Last Admin: 07/28/18 22:23 Dose: 100 mls/hr Dextrose (Dextrose 5% In Water 1000 Ml) 1,000 mls @ 0 mls/hr IV .Q0M PRN; Protocol PRN Reason: Hypoglycemia Protocol Insulin Human Regular (Novolin R) 0 unit SC ACHS [facility]; Protocol Last Admin: 07/29/18 16:47 Dose: Not Given Ipratropium [place] (Atrovent) 0.5 mg IH RQ6 [facility] Last Admin: 07/29/18 13:38 Dose: Not Given Loperamide HCl (Imodium) 1 mg PO Q2H PRN PRN Reason: Diarrhea Last Admin: 07/29/18 18:07 Dose: 1 mg Loratadine (Claritin) 10 mg PO DAILY [facility] Last Admin: 07/29/18 10:50 Dose: 10 mg Lorazepam (Ativan) 1 mg IVP BID [facility] Last Admin: 07/29/18 18:07 Dose: 1 mg Metoprolol Tartrate (Lopressor) 12.5 mg PEG BID [facility] Last Admin: 07/29/18 18:07 Dose: 12.5 mg Mupirocin (Bactroban Ointment) 0 gm TOP BID [facility] Last Admin: 07/29/18 18:08 Dose: 1 oin Nicotine (Nicoderm Cq) 1 patch TD DAILY [facility] Last Admin: 07/29/18 10:49 Dose: 1 patch Ondansetron HCl (Zofran Inj) 4 mg IVP Q6H PRN PRN Reason: Nausea/Vomiting Last Admin: 07/29/18 10:48 Dose: 4 mg Oseltamivir Phosphate (Tamiflu Cap) 75 mg PO BID [facility]; Protocol Stop: 08/03/18 17:19 Last Admin: 07/29/18 18:06 Dose: 75 mg Oxycodone HCl (Oxycodone Immediate Release Tab) 10 mg PO Q6 PRN PRN Reason: Pain, severe (8-10) Last Admin: 07/29/18 10:48 Dose: 10 mg Pantoprazole Sodium (Protonix Susp) 40 mg PO DAILY [facility] Last Admin: 07/29/18 10:50 Dose: 40 mg Saliva Substitute (Mouth Kote 236 Ml) 0 ml MM Q6 PRN PRN Reason: Dry mouth Trazodone HCl (Desyrel) 50 mg PO HS [facility] Last Admin: 07/28/18 21:21 Dose: 50 mg Vitamin A (Vitamin A & D Oint Ud Foilpak) 1 ea TOP Q8 PRN PRN Reason: dry lips Vitamin E (Vitamin E 400 Units Cap) 400 intlu GT DAILY [facility] Last Admin: 07/29/18 10:49 Dose: 400 intlu - Labs Labs: 07/29/18 06:31 07/29/18 06:31 PT 14.3 SECONDS (9.7-12.2) H 06/10/18 07:05 INR 1.3 06/10/18 07:05 APTT 33 SECONDS (21-34) 05/25/18 06:16 Attending/Attestation - Attestation I have personally seen and examined this patient.: Yes I have fully participated in the care of the patient.: Yes I have reviewed all pertinent clinical information, including history, physical exam and plan: Yes Notes (Text): 07/29/18 19:42 Patient was seen and examined at 7:45 AM 07/29/18 654 P Care of this patient was discussed with the resident. Upon ROS: Sweating during the night Whole body aches Dry nonproductive cough Nausea Clear Rhinorrhea has improved NO soreness in throat Still with generalized abdominal pain Patient continues to be in better spirits today Also on Exam: NO signs of physical distress on exam HEENT: nasal turbinates are less edematous and less erythematous, NO cervical/supraclavicular/submandibular lymphadenopathy, NO pharyngeal erythem a/exudate Cardio: NS1, NS2, NO M/R/G Resp: CTA B/L, NO R/R/W GI: BSX4 are present, ND, NT to palpation at the time of my exam, Central abdominal scar appears to be healing well, Wound vac in place, Gtube Ext: Pulses are strong and equal, Capillary Refill is 2 seconds, NO edema Neuro: CN II through XII are grossly intact Fever of 100 noted last night 07/28/18 and considering complaints on ROS, 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 Therefore Tamiflu started with last dose on 08/03/18. Also follow up Blood Culture and Urine Culture which were again ordered today. IV antibiotics (Micofungin, Meropenem, Vancomycin) for treatment of Enterococcus in blood (07/16/18), Pseudomonas at PEG Tube insertion site (07/12/18) and Pseudo monas/Chula at Surgical Site culture (07/12/18): Repeat Blood Culture 07/18/18 showed NO growth at 5 days Repeat Blood Culture 07/24/18 is negative to date F/U Repeat Blood Culture 07/29/18 F/U Repeat Urine Culture 07/29/18 Consider extending the IV antibiotics (which are planned for discontinuation on 07/30/18) considering the fever on 07/28/18 night: will discuss with ID. Surgery planned for 08/08/18 Franki Denise D.O.
[2018-07-29] MEDS: oxyCODONE 10 mg Immediate Release Tab PO PRN (10:48)
[2018-07-29] MEDS: Benzocaine/Menthol (Cepacol) Lozenge MT PRN ×2 (10:48→18:03)
[2018-07-29] MEDS: Loperamide Hydrochloride 1 mg/5 ml Cup PO PRN ×2 (10:49→18:07)
[2018-07-29] MEDS: guaiFENesin 100 mg/5 ml Syrup UD PO PRN ×2 (10:49→18:06)
[2018-07-29] MEDS: Cholestyramine 4 gm/Pkt UD PO SCH ×2 (10:49→18:05)
[2018-07-29] MEDS: Pantoprazole 40 mg Susp UD PO SCH (10:50)
[2018-07-29] MEDS: Fluticasone Nasal 50 mcg/Spray NAS SCH (10:51)
[2018-07-29] MEDS: GENTAMICIN 0.1% TOP SCH ×3 (10:52→18:08)
[2018-07-29 17:06] VITALS: RESP 20
[2018-07-29] MEDS: Micafungin 100 MG in Sodium Chloride 0.9% 100 ML IV SCH (22:06)
[2018-07-30 00:43] LABS: ARTERIAL BLOOD GAS HCO3 21.5 mmol/L (21-28); ARTERIAL BLOOD GAS O2 SAT 66.5 % (95-98); ARTERIAL BLOOD GAS PCO2 37 mm/Hg (35-45); ARTERIAL BLOOD GAS PH 7.37 (7.35-7.45); ARTERIAL BLOOD GAS PO2 38 mm/Hg (80-100); ARTERIAL BLOOD GAS TCO2 22.5 mmol/L (22-28)
[2018-07-30 00:45] LABS: BASO # 0.1 K/uL (0.0-0.2); BASO % 0.4 % (0.0-2.0); EOS # 0.8 K/uL (0.0-0.7); EOS % 4.9 % (0.0-4.0); HEMOGLOBIN 9.8 g/dL (11.0-16.0); LYMPH # 3.5 K/uL (1.0-4.3); MEAN CELL VOLUME 86.5 fL (81.0-99.0); MEAN CORPUSCULAR HEMOGLOBIN 28.2 pg (27.0-31.0); MEAN CORPUSCULAR HGB CONC 32.6 g/dL (33.0-37.0); MEAN PLATELET VOLUME 7.4 fL (7.2-11.7); MONO # 0.4 K/uL (0.0-0.8); MONO % 2.8 % (0.0-10.0); NEUT # 10.9 K/uL (1.8-7.0); NEUT % 69.9 % (50.0-75.0); RBC 3.47 Mil/uL (3.80-5.20); RED CELL DISTRIBUTION WIDTH 18.3 % (11.5-14.5); WHITE BLOOD COUNT 15.7 K/uL (4.8-10.8)
[2018-07-30] MEDS: Acetaminophen 650mg/20.3ml solution UD GT PRN (00:48)
[2018-07-30] MEDS ORDERED: Sodium Chloride 0.9% 1,000 ML IV ONE ×2 (01:00→02:24)
[2018-07-30] MEDS: Ipratropium 0.02% Inhal Soln (0.5 mg/2.5 ml) UD IH SCH (01:14)
[2018-07-30 01:16] LABS: BLOOD UREA NITROGEN 7 mg/dL (7-17); GFR NON-AFRICAN AMERICAN > 60
[2018-07-30 01:17] LABS: ALB/GLOB RATIO 0.9 (1.0-2.1); ALBUMIN 3.1 g/dL (3.5-5.0); ALT/SGPT 17 U/L (9-52); AST/SGOT 14 U/L (14-36); CALCIUM 8.5 mg/dl (8.6-10.4)
[2018-07-30 01:52] VITALS: BP 72/43; PULSE 69; TEMP 99.2; O2SAT 92
[2018-07-30 01:53] LABS: SQUAMOUS EPITHIAL 4 /hpf (0-5); URINE AMORPHOUS SEDIMENT OCC /ul (<OCC); URINE BACTERIA RARE (<OCC); URINE BILIRUBIN NEGATIVE (NEGATIVE); URINE BLOOD NEGATIVE (NEGATIVE); URINE CLARITY Hazy (Clear); URINE COLOR Yellow (YELLOW); URINE GLUCOSE (UA) NORMAL (Normal); URINE LEUKOCYTE ESTERASE NEG Leu/uL (Negative); URINE PROTEIN NEGATIVE (NEGATIVE); URINE UROBILINOGEN NORMAL mg/dL (0.2-1.0)
--- NOTE | 2018-07-30 02:41 | PCM.RRT ---
PARTITION SETTER Nurses Assessment - Situation Date: 07/29/18 Time PARTITION SETTER was called: 11:43 PARTITION SETTER Responder Arrival Time:: 11:46 PARTITION SETTER Location:: Med/Surg Room Number: 654 PARTITION SETTER Reason for Call: Hypotension PARTITION SETTER Called By: RN - IV IV Inserted during PARTITION SETTER?: No IV Fluids Initiated During PARTITION SETTER?: yes, 1L NS bolus New IV Insertion Tolerance: Good - Respiratory PARTITION SETTER Delivery Method: Room Air Received Nebulizer Treatments: Yes Was the Patient Ventilated with Bag/Mask 100% O2?: No Secretions Suctioned?: No Was the Patient Intubated?: No Was the Patient Placed on a Ventilator?: No - Ventilator Settings SAO2 %: 95 - Medication Medications Administered During PARTITION SETTER: tylenol - Diagnostic Test Ordered EKG: Yes - Stat Labs Ordered PARTITION SETTER Stat Labs Ordered: CBC, BMP, LACTIC ACID, BLOOD C&S X2, ABG CPR started during PARTITION SETTER?: No - Vital Signs Vital Signs: Rapid Response Vital Sign Blood Pressure 51/25 Pulse Rate 143 Respiratory Rate 20 Temperature 98.2 F Oxygen Saturation 98 - [place] Coma Scale Coma Scale Eye Opening: Spontaneous Coma Scale Motor: Obeys Commands Movement Coma Scale Verbal: Oriented Coma Scale Total: 15 - Sepsis Screen Part 1 Sepsis Screen Part 1: Hypotensive, Temperature over 100.6F - Sepsis Screen Part 2 Sepsis Screen Part 2: Glucose elevated, Pt not on steroids, WBC over 12,000 - Time PARTITION SETTER Ended Time PARTITION SETTER Ended: 00:30 - Vital Signs at end of PARTITION SETTER Vital Signs at end of PARTITION SETTER: Rapid Response End Vital Sign Blood Pressure 69/38 Pulse Rate 154 Respiratory Rate 20 Temperature 101.8 F O2 Sat by Pulse Oximetry 93 - Recommendations Notifications: Attending Physician I.Reason for PARTITION SETTER - A) Acute Change in Patient: (Select all that apply): Staff member or family is worried about patient - Neurological Status (Select all that apply): Alert, Responsive, Oriented, Verbal, Follows Commands, Lethargic, Weakness - Respiratory Oxygen Delivery Method: Room Air, Nasal Cannula @L/min Oxygen Flow Rate: 2 - Constitutional Appears: Chronically Ill. absent: Well Additional Comments: lethargic - Head Head Exam: ATRAUMATIC, NORMAL INSPECTION, NORMOCEPHALIC - Eyes Eye Exam: EOMI, Normal appearance - Respiratory Exam Respiratory Exam: Clear to Ausculation Bilateral, NORMAL BREATHING PATTERN. absent: Rales, Rhonchi, Wheezes - Cardiovascular Exam Cardiovascular Exam: Tachycardia, +S1, +S2 - GI/Abdominal Exam GI & Abdominal Exam: Soft, Normal Bowel Sounds - Neurological Exam Neurological Exam: Alert, Awake, Oriented x3 - Extremities Exam Extremities Exam: Normal Capillary Refill, Normal Inspection Plan - Assessment of Findings&Treatment Plan Rapid response was called at 23:43 on room 654P, on Patient Dolores Dong 38 yo female hx of gastric bypass, narcotic dependence and anxiety who is admitted to the hospital for SBO, ischemic bowel. Nurse noticed hypotension on blood pressure read. Medicine team arrival at 23:45. Vitals at time of arrival were the following: T 99.2, Blood pressure 51/25, HR 143, O2 sat 98%, RR 20. Upon encounter, Patient was observed to be lethargic but arousable, felt very weak and stated she felt like this after waking up when nurse came to check on her. Patient was observed to be shivering intensively, saying she felt very cold. The following blood work was ordered, CBC, CMP, arterial blood gas, blood culture, urine culture, drug test gen toxicology stat. As per nurse, blood was not able to be retrieved from PICC line, peripheral line was inserted to obtain blood from patient. EKG was ordered, which showed sinus tachycardia. Echo was ordered stat. 1 bag of 1L of NS was given, with another bag 1L of NS ordered to be given after the first bag. Vitals signs were rechecked with the following readings T: 98.2, blood pressure 85/56 HR 156, O sat 98.2, respiratory rate 20. We checked on patient few minutes later, noticing blood pressure continuing to be on 65/30 and a temperature over 100.6. Patient was ordered a third bag of 1L NS bolus. Patient was given tylenol through PEG tube. On repeat vitals, temperature decreased but blood pressure remained in the 30s/60s. Patient denied any shivering, stating she was feeling better. Patient demanded pain medication dilaudid, which it was explained to her that her blood pressure continued to be low. [employer] general contractor to be contacted for evaluation of transferring patient to ICU to start pressor vs continuing bolus. we will follow up blood culture, urine cultures, and blood tests. Rapid response was called at 03:18. Medicine team arrival at 03:19. Upon arrival, Patient was not responding in bed, in the process to be intubated by ICU physician for air bagging. as per nurse, patient asked to go to the bathroom earlier. Patient left the bathroom and was aided by nurse to return to bed, carrying a small purse, which contained several empty vials of dilaudid, lorazepam, syringes including saline flushed and a bottle with unknown pills. Patient was detected to not have a pulse and code blue was called at 03:20. CPR was started by team members with continuing air bagging. First dose of epinephrine and Narcan given at 03:21. second dose of epinephrine follow 2 minutes later, with calcium gluconate. Third dose of epinephrine given 03:30. Kamar jaimes's femoral pulse was checked multiple times during the code using a portable doppler. accucheck reading was 86 at 03:30. A second dose of narcam was given at 03:30 and fourth dose of epinephrine given a 03:31, followed by an additional dose of narcam at 03:32. Another dose of epinephrine was given at 03:36 and flumazenil given at 03:41. another dose of epinephrine was given at 03:42 along with a dose of bicarbonate. A second dose of bicarbonate added at 03:44. CPR was held subsequently to check for pulse, with no pulse detected, CPR was resumed. epinephrine , narcam, levo and bicarb were given. Patient pulse remained weak, and will not be detected in multiple ocassions, which CPR would be initiated. Narcan drip was given to patient at 04:04. Pulse was still weak or non detectable, CPR was continued, epi dose given at 04:10. CPR continued, holding CPR only to check for pulse. Pulse remained weak. one dose of narcam was given at 04:18. 04:20, no pulse was detected, epinephrine bag was held. Code ended and pronouncement at 04:22am. Attending Dr Davidson notified family by calling terrie who is the person of contact, but there was no answer. two voice messages were left and nurse supervisor asbestos textile will try contacting the family at this time.
[2018-07-30] MEDS ORDERED: Naloxone 0.4 mg/ml Inj (Adult) ONE ×5 (03:06→03:35)
[2018-07-30] MEDS ORDERED: Flumazenil 0.1 mg/ml Inj (5ml) IVP ONE (03:20)
[2018-07-30] MEDS ORDERED: Sodium Bicarbonate (8.4%) 50 Meq Syringe ONE (03:20)
[2018-07-30] MEDS ORDERED: CALCIUM CHLORIDE 100 MG/ML VIAL IV ONE (03:20)
[2018-07-30] MEDS ORDERED: Flumazenil 0.1 mg/ml Inj (5ml) IVP STA (03:38)
[2018-07-30 03:55] LABS: ARTERIAL BLOOD GAS HCO3 19.9 mmol/L (21-28); ARTERIAL BLOOD GAS O2 SAT 88.3 % (95-98); ARTERIAL BLOOD GAS PCO2 88 mm/Hg (35-45); ARTERIAL BLOOD GAS PH 7.08 (7.35-7.45); ARTERIAL BLOOD GAS PO2 71 mm/Hg (80-100); ARTERIAL BLOOD GAS TCO2 28.8 mmol/L (22-28)
[2018-07-30] MEDS ORDERED: Naloxone 4 MG in Sodium Chloride 0.9% 250 ML IVP ONE (04:00)
[2018-07-30 04:17] LABS: HEMOGLOBIN 8.2 g/dL (11.0-16.0); MEAN CELL VOLUME 89.7 fL (81.0-99.0); MEAN CORPUSCULAR HEMOGLOBIN 27.3 pg (27.0-31.0); MEAN CORPUSCULAR HGB CONC 30.4 g/dL (33.0-37.0); MEAN PLATELET VOLUME 7.7 fL (7.2-11.7); PLATELET COUNT 168 K/uL (130-400); RBC 2.99 Mil/uL (3.80-5.20); WHITE BLOOD COUNT 30.2 K/uL (4.8-10.8)
[2018-07-30 04:32] LABS: ALB/GLOB RATIO 0.9 (1.0-2.1); ALBUMIN 2.3 g/dL (3.5-5.0); ALT/SGPT 121 U/L (9-52); AST/SGOT 198 U/L (14-36); BLOOD UREA NITROGEN 8 mg/dL (7-17); CALCIUM 9.2 mg/dl (8.6-10.4); GFR NON-AFRICAN AMERICAN > 60
--- NOTE | 2018-07-30 05:15 | CP.PCM.PRO ---
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 [id number] Additional Comments: Depending on ME decision, for autopsy.
[2018-07-30 05:38] LABS: BANDS 3 % (0-2); EOSINOPHIL 1 % (0-4); LYMPHOCYTE 49 % (20-40); MONOCYTE 3 % (0-10); NEUTROPHIL 41 % (50-75); PLATELET ESTIMATE NORMAL (NORMAL); REACTIVE LYMPHOCYTES 3 % (0-0); TOTAL CELLS COUNTED 100
--- NOTE | 2018-07-30 06:38 | CP.CCUPN ---
CCU Subjective - Physician Review Events Since Last Encounter (Free Text): CCM Asked to see pt by hospitalist Dr. Davidson b/o low BP . Pt found in bathroom claiming to do BM. Pt eventually left bathroom and back to bed with RN assistance. Pt claimed ongoing pains. Became progressiveley more lethargic. Syringes, empty Hydromorphone bottles and pill bottle found in purse she brought from bathroom. Pt developed slowing resp. Pt was given narcan /Ambu bagged and then intubated with bilat bs and DIETARY MANAGER called. Pt apneic then pulseless. CPR /ACLS /Meds given. Multiple doses narcan. Pt was in PEA after >1hour CPR and pronounced . Hospitalist attempting to notify family. 07/30/18 06:30 CCU Objective - Vital Signs / Intake & Output Intake and Output (Last 8hrs): Intake & Output 07/29/18 07/29/18 07/30/18 14:59 22:59 06:59 Intake Total 850 Output Total 575 300 Balance -575 550 Intake: Intake, IV Amount 350 Right Upper arm 350 Tube Feeding 400 Other 100 Output: Gastric Amount 500 300 Right Nares 500 300 Drainage 75 0 Medial Proximal Abdomen 75 0 Other: # Voids Urine, Voided 2 # Bowel Movements 1 - Physical Exam Head: Positive for: Atraumatic, Normocephalic Pupils: Positive for: PERRL Extroacular Muscles: Positive for: EOMI Conjunctiva: Positive for: Normal Mouth: Positive for: Moist Mucous Membranes Nose (External): Positive for: Other ((+) NGT on low int suction) Neck: Positive for: Normal Range of Motion, Other ((+) central line in right IJ) Respiratory/Chest: Positive for: Clear to Auscultation, Good Air Exchange. Negative for: Respiratory Distress, Wheezes, Rales Cardiovascular: Positive for: Normal S1, S2, Tachycardic Abdomen: Positive for: Tenderness (diffuse tenderness; soft abdomen), Other ( (+) large vertical incision with dressing in place, C/D/I; (+) left anali drain with scant amount of serosanguinous fluid, (+) g-tube for feeds). Negative for: Distention, Peritoneal Signs, Rebound Rectal: Positive for: Rectal Tenderness, Normal Rectal Tone, Other ((+) thin dark black liquid on glove after examination; fobt sent). Negative for: Occult Blood, Gross Blood, Hemorrhoids ((-) external hemorrhoids), Fissures Upper Extremity: Positive for: Normal Inspection, NORMAL PULSES Lower Extremity: Positive for: Normal Inspection, NORMAL PULSES. Negative for: CALF TENDERNESS Neurological: Positive for: GCS=15 Skin: Positive for: Warm, Dry Psychiatric: Positive for: Alert, Oriented x 3 - Medications Active Medications: Active Medications Generic Name Dose Route Start Last Admin Trade Name Freq PRN Reason Stop Dose Admin Acetaminophen 975 mg 06/30/18 14:19 07/30/18 00:48 Tylenol 650mg/20.3ml Solution Ud GT 975 mg Q8H PRN Administration Pain, Mild (1-3) Benzocaine/Menthol 1 sravan 07/09/18 11:49 07/29/18 18:03 Cepacol Sore Throat MT 1 sravan Q2H PRN Administration Sore Throat Calcium Acetate 667 mg 06/30/18 17:00 07/29/18 18:06 Phoslo GT 667 mg TIDCC KATELYN Administration Cholestyramine Resin 4 gm 06/30/18 18:00 07/29/18 18:05 Questran PO 4 gm BID KATELYN Administration Dextrose 0 ml 07/23/18 01:56 Dextrose 50% Inj IV STAT PRN Hypoglycemia Protocol Protocol Ergocalciferol 1 cap 06/29/18 10:00 07/27/18 11:00 Drisdol 50,000 Intl Units Cap PO 09/14/18 10:01 1 cap Q7D KATELYN Administration Escitalopram Oxalate 20 mg 07/23/18 16:03 07/29/18 10:49 Lexapro GT 20 mg DAILY KATELYN Administration Fluticasone Propionate 2 spr 07/27/18 12:00 07/29/18 10:51 Flonase BRITTANY 2 sprays DAILY KATELYN Administration Gentamicin Sulfate 0 gm 06/26/18 14:00 07/29/18 18:08 Gentamicin 0.1% TOP 1 applic TID KATELYN Administration Glucagon 0 mg 07/23/18 01:56 Glucagen Diagnostic Kit IM STAT PRN Hypoglycemia Protocol Protocol Guaifenesin 100 mg 07/21/18 21:08 07/29/18 18:06 Robitussin PO 100 mg Q4H PRN Administration Cough Hydromorphone HCl 1 mg 07/21/18 14:12 07/29/18 22:04 Dilaudid IVP 1 mg Q3H PRN Administration Pain, moderate (4-7) Hydroxyzine HCl 25 mg 07/25/18 15:12 07/29/18 18:06 Atarax PO 25 mg Q6H PRN Administration Anxiety Meropenem 1 gm/ Sodium 100 mls @ 100 mls/hr 07/14/18 15:45 07/29/18 15:57 Chloride IVPB 100 mls/hr Q8H KATELYN Administration Protocol Micafungin Sodium 100 mg/ 100 mls @ 100 mls/hr 07/14/18 23:00 07/29/18 22:06 Sodium Chloride IV 100 mls/hr Q24H KATELYN Administration Protocol Dextrose 1,000 mls @ 0 mls/hr 07/23/18 01:56 Dextrose 5% In Water 1000 Ml IV .Q0M PRN Hypoglycemia Protocol Protocol Per Protocol Naloxone HCl 4 mg/ Sodium 260 mls @ 1.18 mls/hr 07/30/18 04:00 Chloride IVP 08/08/18 08:20 ONCE ONE 0.25 MCG/KG/HR Insulin Human Regular 0 unit 07/21/18 22:00 07/29/18 21:46 Novolin R SC Not Given ACHS KATELYN Protocol Ipratropium [place] 0.5 mg 07/15/18 04:46 07/30/18 01:14 Atrovent IH 0.5 mg RQ6 KATELYN Administration Loperamide HCl 1 mg 05/28/18 13:13 07/29/18 18:07 Imodium PO 1 mg Q2H PRN Administration Diarrhea Loratadine 10 mg 07/13/18 13:30 07/29/18 10:50 Claritin PO 10 mg DAILY KATELYN Administration Lorazepam 1 mg 06/30/18 18:00 07/29/18 18:07 Ativan IVP 1 mg BID KATELYN Administration Metoprolol Tartrate 12.5 mg 06/30/18 18:00 07/29/18 18:07 Lopressor PEG 12.5 mg BID KATELYN Administration Mupirocin 0 gm 07/28/18 10:00 07/29/18 18:08 Bactroban Ointment TOP 1 oin BID KATELYN Administration Nicotine 1 patch 05/18/18 10:00 07/29/18 10:49 Nicoderm Cq TD 1 patch DAILY KATELYN Administration Ondansetron HCl 4 mg 06/30/18 14:19 07/29/18 10:48 Zofran Inj IVP 4 mg Q6H PRN Administration Nausea/Vomiting Oseltamivir Phosphate 75 mg 07/29/18 18:00 07/29/18 18:06 Tamiflu Cap PO 08/03/18 17:19 75 mg BID KATELYN Administration Protocol Oxycodone HCl 10 mg 07/21/18 14:13 07/29/18 10:48 Oxycodone Immediate Release Tab PO 10 mg Q6 PRN Administration Pain, severe (8-10) Pantoprazole Sodium 40 mg 07/01/18 10:00 07/29/18 10:50 Protonix Susp PO 40 mg DAILY KATELYN Administration Saliva Substitute 0 ml 05/22/18 21:45 Mouth Kote 236 Ml MM Q6 PRN Dry mouth Trazodone HCl 50 mg 07/23/18 22:00 07/29/18 22:06 Desyrel PO 50 mg HS KATELYN Administration Vitamin A 1 ea 06/30/18 14:19 Vitamin A & D Oint Ud Foilpak TOP Q8 PRN dry lips Vitamin E 400 intlu 06/12/18 10:00 07/29/18 10:49 Vitamin E 400 Units Cap GT 400 intlu DAILY KATELYN Administration - Patient Studies Lab Studies: Microbiology Studies 07/24/18 13:45 Blood Culture - Final Blood NO GROWTH AFTER 5 DAYS Gram Stain - Final TEST NOT PERFORMED 07/24/18 11:31 Blood Culture - Preliminary Blood NO GROWTH AFTER 4 DAYS 07/24/18 11:31 Blood Culture - Preliminary Blood-Thru Central Line NO GROWTH AFTER 4 DAYS 07/24/18 11:31 Blood Culture - Preliminary Blood-Thru Central Line NO GROWTH AFTER 4 DAYS Lab Studies 07/30/18 07/30/18 07/30/18 Range/Units 04:14 04:14 03:52 WBC 30.2 H D (4.8-10.8) K/uL RBC 2.99 L (3.80-5.20) Mil/uL Hgb 8.2 L (11.0-16.0) g/dL Hct 26.8 L (34.0-47.0) % MCV 89.7 D (81.0-99.0) fL MCH 27.3 (27.0-31.0) pg MCHC 30.4 L (33.0-37.0) g/dL RDW 18.0 H (11.5-14.5) % Plt Count 168 (130-400) K/uL MPV 7.7 (7.2-11.7) fL Neut % (Auto) (50.0-75.0) % Lymph % (Auto) (20.0-40.0) % [place] % (Auto) (0.0-10.0) % Eos % (Auto) (0.0-4.0) % Baso % (Auto) (0.0-2.0) % Neut # (Auto) (1.8-7.0) K/uL Lymph # (Auto) (1.0-4.3) K/uL [place] # (Auto) (0.0-0.8) K/uL Eos # (Auto) (0.0-0.7) K/uL Baso # (Auto) (0.0-0.2) K/uL Neutrophils % (Manual) 41 L (50-75) % Band Neutrophils % 3 H (0-2) % Lymphocytes % (Manual) 49 H (20-40) % Reactive Lymphs % 3 H (0-0) % Monocytes % (Manual) 3 (0-10) % Eosinophils % (Manual) 1 (0-4) % Platelet Estimate Normal (NORMAL) Puncture Site L fem by dr davidson pCO2 88 H* (35-45) mm/Hg pO2 71 L (80-100) mm/Hg HCO3 19.9 L (21-28) mmol/L ABG pH 7.08 L* (7.35-7.45) ABG Total CO2 28.8 H (22-28) mmol/L ABG O2 Saturation 88.3 L (95-98) % ABG Base Excess -6.0 L (-2.0-3.0) mmol/L Jonathan Test Na ABG Potassium 5.2 (3.6-5.2) mmol/L A-a O2 Difference mm/Hg Respiratory Index Glucose 180 H (65-105) mg/dl Lactate 15.8 H* (0.7-2.1) mmol/L FiO2 % Crit Value Called To Dr jackson Crit Value Called By Tonny collins rt Crit Value Read Back Y Blood Gas Notified Time 355 Sodium 150 H 150.0 H (132-148) mmol/L Potassium 5.5 H (3.6-5.2) mmol/L Chloride 107 110.0 H (98-107) mmol/L Carbon Dioxide 21 L (22-30) mmol/L Anion Gap 28 H (10-20) BUN 8 (7-17) mg/dL Creatinine 1.0 (0.7-1.2) mg/dL Est GFR ( Amer) > 60 Est GFR (Non-Af Amer) > 60 POC Glucose (mg/dL) (65-110) mg/dL Random Glucose 180 H (65-105) mg/dL Calcium 9.2 (8.6-10.4) mg/dl Phosphorus 6.8 H (2.5-4.5) mg/dL Magnesium 1.8 (1.6-2.3) mg/dL Ferritin ng/mL Total Bilirubin 0.4 (0.2-1.3) mg/dL AST 198 H D (14-36) U/L ALT 121 H D (9-52) U/L Alkaline Phosphatase 108 (38-126) U/L Total Protein 4.8 L (6.3-8.3) g/dL Albumin 2.3 L D (3.5-5.0) g/dL Globulin 2.5 (2.2-3.9) gm/dL Albumin/Globulin Ratio 0.9 L (1.0-2.1) Cortisol AM Sample (4.46-22.7) ug/dL Arterial Blood Potassium 5.2 (3.6-5.2) mmol/L Urine Color (YELLOW) Urine Clarity (Clear) Urine pH (5.0-8.0) Ur Specific [place] (1.003-1.030) Urine Protein (NEGATIVE) mg/dL Urine Glucose (UA) (Normal) mg/dL Urine Ketones (NEGATIVE) mg/dL Urine Blood (NEGATIVE) Urine Nitrate (NEGATIVE) Urine Bilirubin (NEGATIVE) Urine Urobilinogen (0.2-1.0) mg/dL Ur Leukocyte Esterase (Negative) Mauro/uL Urine WBC (Auto) (0-5) /hpf Urine RBC (Auto) (0-3) /hpf Ur Squamous Epith Cells (0-5) /hpf Amorphous Sediment (<OCC) /ul Urine Bacteria (<OCC) Urine Yeast (Budding) (NEGATIVE) /hpf Influenza Typ A,B (EIA) (NEGATIVE) 07/30/18 07/30/18 07/30/18 Range/Units 03:02 01:42 01:15 WBC (4.8-10.8) K/uL RBC (3.80-5.20) Mil/uL Hgb (11.0-16.0) g/dL Hct (34.0-47.0) % MCV (81.0-99.0) fL MCH (27.0-31.0) pg MCHC (33.0-37.0) g/dL RDW (11.5-14.5) % Plt Count (130-400) K/uL MPV (7.2-11.7) fL Neut % (Auto) (50.0-75.0) % Lymph % (Auto) (20.0-40.0) % [place] % (Auto) (0.0-10.0) % Eos % (Auto) (0.0-4.0) % Baso % (Auto) (0.0-2.0) % Neut # (Auto) (1.8-7.0) K/uL Lymph # (Auto) (1.0-4.3) K/uL [place] # (Auto) (0.0-0.8) K/uL Eos # (Auto) (0.0-0.7) K/uL Baso # (Auto) (0.0-0.2) K/uL Neutrophils % (Manual) (50-75) % Band Neutrophils % (0-2) % Lymphocytes % (Manual) (20-40) % Reactive Lymphs % (0-0) % Monocytes % (Manual) (0-10) % Eosinophils % (Manual) (0-4) % Platelet Estimate (NORMAL) Puncture Site pCO2 (35-45) mm/Hg pO2 (80-100) mm/Hg HCO3 (21-28) mmol/L ABG pH (7.35-7.45) ABG Total CO2 (22-28) mmol/L ABG O2 Saturation (95-98) % ABG Base Excess (-2.0-3.0) mmol/L Jonathan Test ABG Potassium (3.6-5.2) mmol/L A-a O2 Difference mm/Hg Respiratory Index Glucose (65-105) mg/dl Lactate (0.7-2.1) mmol/L FiO2 % Crit Value Called To Crit Value Called By Crit Value Read Back Blood Gas Notified Time Sodium 134 (132-148) mmol/L Potassium 5.3 H (3.6-5.2) mmol/L Chloride 101 (98-107) mmol/L Carbon Dioxide 18 L (22-30) mmol/L Anion Gap 20 (10-20) BUN 7 (7-17) mg/dL Creatinine 0.7 (0.7-1.2) mg/dL Est GFR ( Amer) > 60 Est GFR (Non-Af Amer) > 60 POC Glucose (mg/dL) (65-110) mg/dL Random Glucose 220 H (65-105) mg/dL Calcium 8.5 L (8.6-10.4) mg/dl Phosphorus 5.3 H (2.5-4.5) mg/dL Magnesium 1.4 L (1.6-2.3) mg/dL Ferritin ng/mL Total Bilirubin 0.7 (0.2-1.3) mg/dL AST 14 (14-36) U/L ALT 17 (9-52) U/L Alkaline Phosphatase 151 H (38-126) U/L Total Protein 6.4 (6.3-8.3) g/dL Albumin 3.1 L (3.5-5.0) g/dL Globulin 3.4 (2.2-3.9) gm/dL Albumin/Globulin Ratio 0.9 L (1.0-2.1) Cortisol AM Sample 16.4 (4.46-22.7) ug/dL Arterial Blood Potassium (3.6-5.2) mmol/L Urine Color Yellow (YELLOW) Urine Clarity Hazy (Clear) Urine pH 6.0 (5.0-8.0) Ur Specific [place] 1.016 (1.003-1.030) Urine Protein Negative (NEGATIVE) mg/dL Urine Glucose (UA) Normal (Normal) mg/dL Urine Ketones Negative (NEGATIVE) mg/dL Urine Blood Negative (NEGATIVE) Urine Nitrate Negative (NEGATIVE) Urine Bilirubin Negative (NEGATIVE) Urine Urobilinogen Normal (0.2-1.0) mg/dL Ur Leukocyte Esterase Neg (Negative) Mauro/uL Urine WBC (Auto) 1 (0-5) /hpf Urine RBC (Auto) 1 (0-3) /hpf Ur Squamous Epith Cells 4 (0-5) /hpf Amorphous Sediment Occ H (<OCC) /ul Urine Bacteria Rare (<OCC) Urine Yeast (Budding) Occ H (NEGATIVE) /hpf Influenza Typ A,B (EIA) (NEGATIVE) 07/30/18 07/30/18 07/29/18 Range/Units 00:35 00:29 23:44 WBC 15.7 H D (4.8-10.8) K/uL RBC 3.47 L (3.80-5.20) Mil/uL Hgb 9.8 L (11.0-16.0) g/dL Hct 30.0 L (34.0-47.0) % MCV 86.5 (81.0-99.0) fL MCH 28.2 (27.0-31.0) pg MCHC 32.6 L (33.0-37.0) g/dL RDW 18.3 H (11.5-14.5) % Plt Count 264 (130-400) K/uL MPV 7.4 (7.2-11.7) fL Neut % (Auto) 69.9 (50.0-75.0) % Lymph % (Auto) 22.0 (20.0-40.0) % [place] % (Auto) 2.8 (0.0-10.0) % Eos % (Auto) 4.9 H (0.0-4.0) % Baso % (Auto) 0.4 (0.0-2.0) % Neut # (Auto) 10.9 H (1.8-7.0) K/uL Lymph # (Auto) 3.5 (1.0-4.3) K/uL [place] # (Auto) 0.4 (0.0-0.8) K/uL Eos # (Auto) 0.8 H (0.0-0.7) K/uL Baso # (Auto) 0.1 (0.0-0.2) K/uL Neutrophils % (Manual) (50-75) % Band Neutrophils % (0-2) % Lymphocytes % (Manual) (20-40) % Reactive Lymphs % (0-0) % Monocytes % (Manual) (0-10) % Eosinophils % (Manual) (0-4) % Platelet Estimate (NORMAL) Puncture Site Lb pCO2 37 (35-45) mm/Hg pO2 38 L* (80-100) mm/Hg HCO3 21.5 (21-28) mmol/L ABG pH 7.37 (7.35-7.45) ABG Total CO2 22.5 (22-28) mmol/L ABG O2 Saturation 66.5 L (95-98) % ABG Base Excess -3.4 L (-2.0-3.0) mmol/L Jonathan Test Na ABG Potassium 5.0 (3.6-5.2) mmol/L A-a O2 Difference 65.0 mm/Hg Respiratory Index 1.7 Glucose 171 H (65-105) mg/dl Lactate 3.5 H (0.7-2.1) mmol/L FiO2 21.0 % Crit Value Called To Dr davidson Crit Value Called By Roosevelt saini/rt Crit Value Read Back Y Blood Gas Notified Time 45 Sodium 133.0 (132-148) mmol/L Potassium (3.6-5.2) mmol/L Chloride 102.0 (98-107) mmol/L Carbon Dioxide (22-30) mmol/L Anion Gap (10-20) BUN (7-17) mg/dL Creatinine (0.7-1.2) mg/dL Est GFR ( Amer) Est GFR (Non-Af Amer) POC Glucose (mg/dL) 200 H (65-110) mg/dL Random Glucose (65-105) mg/dL Calcium (8.6-10.4) mg/dl Phosphorus (2.5-4.5) mg/dL Magnesium (1.6-2.3) mg/dL Ferritin ng/mL Total Bilirubin (0.2-1.3) mg/dL AST (14-36) U/L ALT (9-52) U/L Alkaline Phosphatase (38-126) U/L Total Protein (6.3-8.3) g/dL Albumin (3.5-5.0) g/dL Globulin (2.2-3.9) gm/dL Albumin/Globulin Ratio (1.0-2.1) Cortisol AM Sample (4.46-22.7) ug/dL Arterial Blood Potassium 5.0 (3.6-5.2) mmol/L Urine Color (YELLOW) Urine Clarity (Clear) Urine pH (5.0-8.0) Ur Specific [place] (1.003-1.030) Urine Protein (NEGATIVE) mg/dL Urine Glucose (UA) (Normal) mg/dL Urine Ketones (NEGATIVE) mg/dL Urine Blood (NEGATIVE) Urine Nitrate (NEGATIVE) Urine Bilirubin (NEGATIVE) Urine Urobilinogen (0.2-1.0) mg/dL Ur Leukocyte Esterase (Negative) Mauro/uL Urine WBC (Auto) (0-5) /hpf Urine RBC (Auto) (0-3) /hpf Ur Squamous Epith Cells (0-5) /hpf Amorphous Sediment (<OCC) /ul Urine Bacteria (<OCC) Urine Yeast (Budding) (NEGATIVE) /hpf Influenza Typ A,B (EIA) (NEGATIVE) 07/29/18 07/29/18 07/29/18 Range/Units 21:31 16:37 12:11 WBC (4.8-10.8) K/uL RBC (3.80-5.20) Mil/uL Hgb (11.0-16.0) g/dL Hct (34.0-47.0) % MCV (81.0-99.0) fL MCH (27.0-31.0) pg MCHC (33.0-37.0) g/dL RDW (11.5-14.5) % Plt Count (130-400) K/uL MPV (7.2-11.7) fL Neut % (Auto) (50.0-75.0) % Lymph % (Auto) (20.0-40.0) % [place] % (Auto) (0.0-10.0) % Eos % (Auto) (0.0-4.0) % Baso % (Auto) (0.0-2.0) % Neut # (Auto) (1.8-7.0) K/uL Lymph # (Auto) (1.0-4.3) K/uL [place] # (Auto) (0.0-0.8) K/uL Eos # (Auto) (0.0-0.7) K/uL Baso # (Auto) (0.0-0.2) K/uL Neutrophils % (Manual) (50-75) % Band Neutrophils % (0-2) % Lymphocytes % (Manual) (20-40) % Reactive Lymphs % (0-0) % Monocytes % (Manual) (0-10) % Eosinophils % (Manual) (0-4) % Platelet Estimate (NORMAL) Puncture Site pCO2 (35-45) mm/Hg pO2 (80-100) mm/Hg HCO3 (21-28) mmol/L ABG pH (7.35-7.45) ABG Total CO2 (22-28) mmol/L ABG O2 Saturation (95-98) % ABG Base Excess (-2.0-3.0) mmol/L Jonathan Test ABG Potassium (3.6-5.2) mmol/L A-a O2 Difference mm/Hg Respiratory Index Glucose (65-105) mg/dl Lactate (0.7-2.1) mmol/L FiO2 % Crit Value Called To Crit Value Called By Crit Value Read Back Blood Gas Notified Time Sodium (132-148) mmol/L Potassium (3.6-5.2) mmol/L Chloride (98-107) mmol/L Carbon Dioxide (22-30) mmol/L Anion Gap (10-20) BUN (7-17) mg/dL Creatinine (0.7-1.2) mg/dL Est GFR ( Amer) Est GFR (Non-Af Amer) POC Glucose (mg/dL) 84 89 (65-110) mg/dL Random Glucose (65-105) mg/dL Calcium (8.6-10.4) mg/dl Phosphorus (2.5-4.5) mg/dL Magnesium (1.6-2.3) mg/dL Ferritin ng/mL Total Bilirubin (0.2-1.3) mg/dL AST (14-36) U/L ALT (9-52) U/L Alkaline Phosphatase (38-126) U/L Total Protein (6.3-8.3) g/dL Albumin (3.5-5.0) g/dL Globulin (2.2-3.9) gm/dL Albumin/Globulin Ratio (1.0-2.1) Cortisol AM Sample (4.46-22.7) ug/dL Arterial Blood Potassium (3.6-5.2) mmol/L Urine Color (YELLOW) Urine Clarity (Clear) Urine pH (5.0-8.0) Ur Specific [place] (1.003-1.030) Urine Protein (NEGATIVE) mg/dL Urine Glucose (UA) (Normal) mg/dL Urine Ketones (NEGATIVE) mg/dL Urine Blood (NEGATIVE) Urine Nitrate (NEGATIVE) Urine Bilirubin (NEGATIVE) Urine Urobilinogen (0.2-1.0) mg/dL Ur Leukocyte Esterase (Negative) Mauro/uL Urine WBC (Auto) (0-5) /hpf Urine RBC (Auto) (0-3) /hpf Ur Squamous Epith Cells (0-5) /hpf Amorphous Sediment (<OCC) /ul Urine Bacteria (<OCC) Urine Yeast (Budding) (NEGATIVE) /hpf Influenza Typ A,B (EIA) Negative for flu a/b (NEGATIVE) 07/29/18 07/29/18 Range/Units 06:31 06:31 WBC 9.6 (4.8-10.8) K/uL RBC 3.03 L (3.80-5.20) Mil/uL Hgb 8.6 L (11.0-16.0) g/dL Hct 25.9 L (34.0-47.0) % MCV 85.4 (81.0-99.0) fL MCH 28.3 (27.0-31.0) pg MCHC 33.1 (33.0-37.0) g/dL RDW 18.1 H (11.5-14.5) % Plt Count 263 (130-400) K/uL MPV 7.2 (7.2-11.7) fL Neut % (Auto) 57.7 (50.0-75.0) % Lymph % (Auto) 23.5 (20.0-40.0) % [place] % (Auto) 6.5 (0.0-10.0) % Eos % (Auto) 11.7 H (0.0-4.0) % Baso % (Auto) 0.6 (0.0-2.0) % Neut # (Auto) 5.6 (1.8-7.0) K/uL Lymph # (Auto) 2.3 (1.0-4.3) K/uL [place] # (Auto) 0.6 (0.0-0.8) K/uL Eos # (Auto) 1.1 H (0.0-0.7) K/uL Baso # (Auto) 0.1 (0.0-0.2) K/uL Neutrophils % (Manual) (50-75) % Band Neutrophils % (0-2) % Lymphocytes % (Manual) (20-40) % Reactive Lymphs % (0-0) % Monocytes % (Manual) (0-10) % Eosinophils % (Manual) (0-4) % Platelet Estimate (NORMAL) Puncture Site pCO2 (35-45) mm/Hg pO2 (80-100) mm/Hg HCO3 (21-28) mmol/L ABG pH (7.35-7.45) ABG Total CO2 (22-28) mmol/L ABG O2 Saturation (95-98) % ABG Base Excess (-2.0-3.0) mmol/L Jonathan Test ABG Potassium (3.6-5.2) mmol/L A-a O2 Difference mm/Hg Respiratory Index Glucose (65-105) mg/dl Lactate (0.7-2.1) mmol/L FiO2 % Crit Value Called To Crit Value Called By Crit Value Read Back Blood Gas Notified Time Sodium 140 (132-148) mmol/L Potassium 3.9 (3.6-5.2) mmol/L Chloride 103 (98-107) mmol/L Carbon Dioxide 28 (22-30) mmol/L Anion Gap 13 (10-20) BUN 7 (7-17) mg/dL Creatinine 0.4 L (0.7-1.2) mg/dL Est GFR ( Amer) > 60 Est GFR (Non-Af Amer) > 60 POC Glucose (mg/dL) (65-110) mg/dL Random Glucose 83 (65-105) mg/dL Calcium 8.1 L (8.6-10.4) mg/dl Phosphorus 4.5 (2.5-4.5) mg/dL Magnesium 1.6 (1.6-2.3) mg/dL Ferritin 106.0 ng/mL Total Bilirubin 0.5 (0.2-1.3) mg/dL AST 16 (14-36) U/L ALT 21 (9-52) U/L Alkaline Phosphatase 141 H (38-126) U/L Total Protein 5.6 L (6.3-8.3) g/dL Albumin 2.7 L (3.5-5.0) g/dL Globulin 2.9 (2.2-3.9) gm/dL Albumin/Globulin Ratio 0.9 L (1.0-2.1) Cortisol AM Sample (4.46-22.7) ug/dL Arterial Blood Potassium (3.6-5.2) mmol/L Urine Color (YELLOW) Urine Clarity (Clear) Urine pH (5.0-8.0) Ur Specific [place] (1.003-1.030) Urine Protein (NEGATIVE) mg/dL Urine Glucose (UA) (Normal) mg/dL Urine Ketones (NEGATIVE) mg/dL Urine Blood (NEGATIVE) Urine Nitrate (NEGATIVE) Urine Bilirubin (NEGATIVE) Urine Urobilinogen (0.2-1.0) mg/dL Ur Leukocyte Esterase (Negative) Mauro/uL Urine WBC (Auto) (0-5) /hpf Urine RBC (Auto) (0-3) /hpf Ur Squamous Epith Cells (0-5) /hpf Amorphous Sediment (<OCC) /ul Urine Bacteria (<OCC) Urine Yeast (Budding) (NEGATIVE) /hpf Influenza Typ A,B (EIA) (NEGATIVE) Laboratory Results - last 24 hr 07/29/18 07/29/18 07/29/18 06:31 06:31 12:11 WBC 9.6 RBC 3.03 L Hgb 8.6 L Hct 25.9 L MCV 85.4 MCH 28.3 MCHC 33.1 RDW 18.1 H Plt Count 263 MPV 7.2 Neut % (Auto) 57.7 Lymph % (Auto) 23.5 [place] % (Auto) 6.5 Eos % (Auto) 11.7 H Baso % (Auto) 0.6 Neut # (Auto) 5.6 Lymph # (Auto) 2.3 [place] # (Auto) 0.6 Eos # (Auto) 1.1 H Baso # (Auto) 0.1 Neutrophils % (Manual) Band Neutrophils % Lymphocytes % (Manual) Reactive Lymphs % Monocytes % (Manual) Eosinophils % (Manual) Platelet Estimate Puncture Site pCO2 pO2 HCO3 ABG pH ABG Total CO2 ABG O2 Saturation ABG Base Excess Jonathan Test ABG Potassium A-a O2 Difference Respiratory Index Glucose Lactate FiO2 Crit Value Called To Crit Value Called By Crit Value Read Back Blood Gas Notified Time Sodium 140 Potassium 3.9 Chloride 103 Carbon Dioxide 28 Anion Gap 13 BUN 7 Creatinine 0.4 L Est GFR ( Amer) > 60 Est GFR (Non-Af Amer) > 60 POC Glucose (mg/dL) Random Glucose 83 Calcium 8.1 L Phosphorus 4.5 Magnesium 1.6 Ferritin 106.0 Total Bilirubin 0.5 AST 16 ALT 21 Alkaline Phosphatase 141 H Total Protein 5.6 L Albumin 2.7 L Globulin 2.9 Albumin/Globulin Ratio 0.9 L Cortisol AM Sample Arterial Blood Potassium Urine Color Urine Clarity Urine pH Ur Specific [place] Urine Protein Urine Glucose (UA) Urine Ketones Urine Blood Urine Nitrate Urine Bilirubin Urine Urobilinogen Ur Leukocyte Esterase Urine WBC (Auto) Urine RBC (Auto) Ur Squamous Epith Cells Amorphous Sediment Urine Bacteria Urine Yeast (Budding) Influenza Typ A,B (EIA) Negative for flu a/b 07/29/18 07/29/18 07/29/18 16:37 21:31 23:44 WBC RBC Hgb Hct MCV MCH MCHC RDW Plt Count MPV Neut % (Auto) Lymph % (Auto) [place] % (Auto) Eos % (Auto) Baso % (Auto) Neut # (Auto) Lymph # (Auto) [place] # (Auto) Eos # (Auto) Baso # (Auto) Neutrophils % (Manual) Band Neutrophils % Lymphocytes % (Manual) Reactive Lymphs % Monocytes % (Manual) Eosinophils % (Manual) Platelet Estimate Puncture Site pCO2 pO2 HCO3 ABG pH ABG Total CO2 ABG O2 Saturation ABG Base Excess Jonathan Test ABG Potassium A-a O2 Difference Respiratory Index Glucose Lactate FiO2 Crit Value Called To Crit Value Called By Crit Value Read Back Blood Gas Notified Time Sodium Potassium Chloride Carbon Dioxide Anion Gap BUN Creatinine Est GFR ( Amer) Est GFR (Non-Af Amer) POC Glucose (mg/dL) 89 84 200 H Random Glucose Calcium Phosphorus Magnesium Ferritin Total Bilirubin AST ALT Alkaline Phosphatase Total Protein Albumin Globulin Albumin/Globulin Ratio Cortisol AM Sample Arterial Blood Potassium Urine Color Urine Clarity Urine pH Ur Specific [place] Urine Protein Urine Glucose (UA) Urine Ketones Urine Blood Urine Nitrate Urine Bilirubin Urine Urobilinogen Ur Leukocyte Esterase Urine WBC (Auto) Urine RBC (Auto) Ur Squamous Epith Cells Amorphous Sediment Urine Bacteria Urine Yeast (Budding) Influenza Typ A,B (EIA) 07/30/18 07/30/18 07/30/18 00:29 00:35 01:15 WBC 15.7 H D RBC 3.47 L Hgb 9.8 L Hct 30.0 L MCV 86.5 MCH 28.2 MCHC 32.6 L RDW 18.3 H Plt Count 264 MPV 7.4 Neut % (Auto) 69.9 Lymph % (Auto) 22.0 [place] % (Auto) 2.8 Eos % (Auto) 4.9 H Baso % (Auto) 0.4 Neut # (Auto) 10.9 H Lymph # (Auto) 3.5 [place] # (Auto) 0.4 Eos # (Auto) 0.8 H Baso # (Auto) 0.1 Neutrophils % (Manual) Band Neutrophils % Lymphocytes % (Manual) Reactive Lymphs % Monocytes % (Manual) Eosinophils % (Manual) Platelet Estimate Puncture Site Lb pCO2 37 pO2 38 L* HCO3 21.5 ABG pH 7.37 ABG Total CO2 22.5 ABG O2 Saturation 66.5 L ABG Base Excess -3.4 L Jonathan Test Na ABG Potassium 5.0 A-a O2 Difference 65.0 Respiratory Index 1.7 Glucose 171 H Lactate 3.5 H FiO2 21.0 Crit Value Called To Dr davidson Crit Value Called By Roosevelt [email or web address] Crit Value Read Back Y Blood Gas Notified Time 45 Sodium 133.0 134 Potassium 5.3 H Chloride 102.0 101 Carbon Dioxide 18 L Anion Gap 20 BUN 7 Creatinine 0.7 Est GFR ( Amer) > 60 Est GFR (Non-Af Amer) > 60 POC Glucose (mg/dL) Random Glucose 220 H Calcium 8.5 L Phosphorus 5.3 H Magnesium 1.4 L Ferritin Total Bilirubin 0.7 AST 14 ALT 17 Alkaline Phosphatase 151 H Total Protein 6.4 Albumin 3.1 L Globulin 3.4 Albumin/Globulin Ratio 0.9 L Cortisol AM Sample Arterial Blood Potassium 5.0 Urine Color Urine Clarity Urine pH Ur Specific [place] Urine Protein Urine Glucose (UA) Urine Ketones Urine Blood Urine Nitrate Urine Bilirubin Urine Urobilinogen Ur Leukocyte Esterase Urine WBC (Auto) Urine RBC (Auto) Ur Squamous Epith Cells Amorphous Sediment Urine Bacteria Urine Yeast (Budding) Influenza Typ A,B (EIA) 07/30/18 07/30/18 07/30/18 01:42 03:02 03:52 WBC RBC Hgb Hct MCV MCH MCHC RDW Plt Count MPV Neut % (Auto) Lymph % (Auto) [place] % (Auto) Eos % (Auto) Baso % (Auto) Neut # (Auto) Lymph # (Auto) [place] # (Auto) Eos # (Auto) Baso # (Auto) Neutrophils % (Manual) Band Neutrophils % Lymphocytes % (Manual) Reactive Lymphs % Monocytes % (Manual) Eosinophils % (Manual) Platelet Estimate Puncture Site L fem by dr davidson pCO2 88 H* pO2 71 L HCO3 19.9 L ABG pH 7.08 L* ABG Total CO2 28.8 H ABG O2 Saturation 88.3 L ABG Base Excess -6.0 L Jonathan Test Na ABG Potassium 5.2 A-a O2 Difference Respiratory Index Glucose 180 H Lactate 15.8 H* FiO2 Crit Value Called To Dr jackson Crit Value Called By Tonny collins rt Crit Value Read Back Y Blood Gas Notified Time 355 Sodium 150.0 H Potassium Chloride 110.0 H Carbon Dioxide Anion Gap BUN Creatinine Est GFR ( Amer) Est GFR (Non-Af Amer) POC Glucose (mg/dL) Random Glucose Calcium Phosphorus Magnesium Ferritin Total Bilirubin AST ALT Alkaline Phosphatase Total Protein Albumin Globulin Albumin/Globulin Ratio Cortisol AM Sample 16.4 Arterial Blood Potassium 5.2 Urine Color Yellow Urine Clarity Hazy Urine pH 6.0 Ur Specific [place] 1.016 Urine Protein Negative Urine Glucose (UA) Normal Urine Ketones Negative Urine Blood Negative Urine Nitrate Negative Urine Bilirubin Negative Urine Urobilinogen Normal Ur Leukocyte Esterase Neg Urine WBC (Auto) 1 Urine RBC (Auto) 1 Ur Squamous Epith Cells 4 Amorphous Sediment Occ H Urine Bacteria Rare Urine Yeast (Budding) Occ H Influenza Typ A,B (EIA) 07/30/18 07/30/18 04:14 04:14 WBC 30.2 H D RBC 2.99 L Hgb 8.2 L Hct 26.8 L MCV 89.7 D MCH 27.3 MCHC 30.4 L RDW 18.0 H Plt Count 168 MPV 7.7 Neut % (Auto) Lymph % (Auto) [place] % (Auto) Eos % (Auto) Baso % (Auto) Neut # (Auto) Lymph # (Auto) [place] # (Auto) Eos # (Auto) Baso # (Auto) Neutrophils % (Manual) 41 L Band Neutrophils % 3 H Lymphocytes % (Manual) 49 H Reactive Lymphs % 3 H Monocytes % (Manual) 3 Eosinophils % (Manual) 1 Platelet Estimate Normal Puncture Site pCO2 pO2 HCO3 ABG pH ABG Total CO2 ABG O2 Saturation ABG Base Excess Jonathan Test ABG Potassium A-a O2 Difference Respiratory Index Glucose Lactate FiO2 Crit Value Called To Crit Value Called By Crit Value Read Back Blood Gas Notified Time Sodium 150 H Potassium 5.5 H Chloride 107 Carbon Dioxide 21 L Anion Gap 28 H BUN 8 Creatinine 1.0 Est GFR ( Amer) > 60 Est GFR (Non-Af Amer) > 60 POC Glucose (mg/dL) Random Glucose 180 H Calcium 9.2 Phosphorus 6.8 H Magnesium 1.8 Ferritin Total Bilirubin 0.4 AST 198 H D ALT 121 H D Alkaline Phosphatase 108 Total Protein 4.8 L Albumin 2.3 L D Globulin 2.5 Albumin/Globulin Ratio 0.9 L Cortisol AM Sample Arterial Blood Potassium Urine Color Urine Clarity Urine pH Ur Specific [place] Urine Protein Urine Glucose (UA) Urine Ketones Urine Blood Urine Nitrate Urine Bilirubin Urine Urobilinogen Ur Leukocyte Esterase Urine WBC (Auto) Urine RBC (Auto) Ur Squamous Epith Cells Amorphous Sediment Urine Bacteria Urine Yeast (Budding) Influenza Typ A,B (EIA) EKG/Cardiology Studies: Cardiology / EKG Studies 07/30/18 00:05 EKG [ELECTROCARDIOGRAM] Stat Comment: Mode Of Transportation: Reason For Exam: rapid response Isolation: Contact Fingerstick Blood Sugar Results: 84 Critical Care Progress Note - Nutrition Nutrition: Nutrition Category Date Time Status NPO Diet [DIET] Diets 05/14/18 Breakfast Active
--- NOTE | 2018-07-30 15:27 | CP.PCM.PCO ---
Physician Communication Note - Physician Communication Note Physician Communication Note: Please see above
--- NOTE | 2018-07-30 19:00 | CP.PCM.DIS ---
<Humberto Banegas - Last Filed: 07/31/18 22:11> Provider - Provider Date of Admission: 05/14/18 03:06 Attending physician: Wesley Kirby MD Primary care physician: Non [facility] Provider Time Spent in preparation of Discharge (in minutes): 180 Diagnosis - Discharge Diagnosis (1) Ischemic bowel disease Status: Acute (2) Small bowel obstruction Status: Acute (3) Asthma Status: Acute (4) Diabetes Status: Acute (5) HTN (hypertension) Status: Acute Hospital Course - Lab Results Lab Results: Micro Results 07/29/18 13:28 Blood-Thru Central Line Blood Culture - Preliminary NO GROWTH AFTER 24 HOURS 07/29/18 12:11 Urine Urine Culture - Final No Growth (<1,000 CFU/ML) 07/29/18 12:11 Blood-Thru Central Line S.aureus & Coag-Neg Staph PNA FISH - Final 07/29/18 12:11 Blood-Thru Central Line Blood Culture - Preliminary Gram Positive Cocci 07/29/18 12:11 Blood-Thru Central Line Gram Stain - Final 07/24/18 11:31 Blood Blood Culture - Final NO GROWTH AFTER 5 DAYS 07/24/18 11:31 Blood-Thru Central Line Blood Culture - Final NO GROWTH AFTER 5 DAYS 07/24/18 11:31 Blood-Thru Central Line Gram Stain - Final TEST NOT PERFORMED 07/24/18 11:31 Blood-Thru Central Line Blood Culture - Final NO GROWTH AFTER 5 DAYS 07/24/18 11:31 Blood-Thru Central Line Gram Stain - Final TEST NOT PERFORMED 07/24/18 13:45 Blood Blood Culture - Final NO GROWTH AFTER 5 DAYS 07/24/18 13:45 Blood Gram Stain - Final TEST NOT PERFORMED 07/18/18 07:54 Blood Blood Culture - Final NO GROWTH AFTER 5 DAYS 07/18/18 07:54 Blood Gram Stain - Final TEST NOT PERFORMED 07/18/18 07:09 Blood Blood Culture - Final NO GROWTH AFTER 5 DAYS 07/18/18 07:09 Blood Gram Stain - Final TEST NOT PERFORMED 07/15/18 14:47 Blood-Thru Central Line Blood Culture - Final NO GROWTH AFTER 5 DAYS 07/15/18 14:47 Blood-Thru Central Line Gram Stain - Final TEST NOT PERFORMED 07/15/18 14:47 Blood-Thru Central Line Blood Culture - Final NO GROWTH AFTER 5 DAYS 07/15/18 14:47 Blood-Thru Central Line Gram Stain - Final TEST NOT PERFORMED 07/14/18 16:16 Blood Blood Culture - Final NO GROWTH AFTER 5 DAYS 07/14/18 16:16 Blood Gram Stain - Final TEST NOT PERFORMED 07/14/18 16:16 Blood Blood Culture - Final NO GROWTH AFTER 5 DAYS 07/14/18 16:16 Blood Gram Stain - Final TEST NOT PERFORMED 07/17/18 21:29 Catheter Tip Catheter Tip Culture - Final No growth. 07/16/18 17:10 Blood-Thru Central Line S.aureus & Coag-Neg Staph PNA FISH - Final 07/16/18 17:10 Blood-Thru Central Line Blood Culture - Final Enterococcus Faecalis 07/16/18 17:10 Blood-Thru Central Line Gram Stain - Final 07/16/18 17:10 Blood-Thru Central Line Blood Culture - Final Enterococcus Faecalis 07/16/18 17:10 Blood-Thru Central Line Gram Stain - Final 07/15/18 19:48 Sputum Gram Stain - Final 07/15/18 19:48 Sputum Sputum Culture - Final NORMAL ORAL CARRILLO 07/15/18 19:48 Urine Urine Culture - Final No Growth (<1,000 CFU/ML) 07/12/18 18:47 Abdomen Gram Stain - Final 07/12/18 18:47 Abdomen Wound Culture - Final Pseudomonas Aeruginosa Yudith Lusitaniae 06/22/18 20:19 Abdomen Gram Stain - Final 06/22/18 20:19 Abdomen Wound Culture - Final Pseudomonas Aeruginosa 06/22/18 20:19 Peg Site Gram Stain - Final 06/22/18 20:19 Peg Site Wound Culture - Final Pseudomonas Aeruginosa 06/13/18 10:48 Abdomen Gram Stain - Final 06/13/18 10:48 Abdomen Wound Culture - Final Coagulase Neg Staphylococcus Enterococcus Raffinosus 06/03/18 21:51 Stool Stool Culture - Final NO SALMONELLA, SHIGELLA OR CAMPYLOBACTER ISOLATED. 05/31/18 07:46 Abdomen Gram Stain - Final 05/31/18 07:46 Abdomen Wound Culture - Final Acinetobacter Baumannii Enterococcus Faecalis 05/28/18 21:48 Stool Ova and Parasite Concentrate Exam - Final 05/22/18 13:30 Blood-Thru Central Line Blood Culture - Final NO GROWTH AFTER 5 DAYS 05/22/18 13:30 Blood-Thru Central Line Gram Stain - Final TEST NOT PERFORMED 05/22/18 14:10 Blood-Venous Blood Culture - Final NO GROWTH AFTER 5 DAYS 05/22/18 14:10 Blood-Venous Gram Stain - Final TEST NOT PERFORMED 05/22/18 14:40 Blood-Venous Blood Culture - Final NO GROWTH AFTER 5 DAYS 05/22/18 14:40 Blood-Venous Gram Stain - Final TEST NOT PERFORMED 05/22/18 14:00 Blood-Thru Central Line Blood Culture - Final NO GROWTH AFTER 5 DAYS 05/22/18 14:00 Blood-Thru Central Line Gram Stain - Final TEST NOT PERFORMED 05/25/18 21:09 Stool Stool Culture - Final NO SALMONELLA, SHIGELLA OR CAMPYLOBACTER ISOLATED. 05/25/18 21:09 Stool Ova and Parasite Concentrate Exam - Final 05/25/18 17:45 Naris MRSA Culture - Final MRSA NOT DETECTED 05/23/18 08:02 Other: Please Indicate Gram Stain - Final 05/23/18 08:02 Other: Please Indicate Wound Culture - Final Yudith Albicans 05/22/18 15:33 Urine,Clean Catch Urine Culture - Final No Growth (<1,000 CFU/ML) 05/15/18 12:51 Blood-Thru Central Line Blood Culture - Final NO GROWTH AFTER 5 DAYS 05/15/18 12:51 Blood-Thru Central Line Gram Stain - Final TEST NOT PERFORMED 05/15/18 12:51 Blood-Thru Central Line Blood Culture - Final NO GROWTH AFTER 5 DAYS 05/15/18 12:51 Blood-Thru Central Line Gram Stain - Final TEST NOT PERFORMED 05/14/18 16:56 Peritoneal Fluid Gram Stain - Final 05/14/18 16:56 Peritoneal Fluid Body Fluid Culture - Final Pseudomonas Aeruginosa 05/14/18 20:37 Naris MRSA Culture (Admit) - Final MRSA NOT DETECTED 05/15/18 17:39 Urine Urine Culture - Final No Growth (<1,000 CFU/ML) Most Recent Lab Values WBC 30.2 K/uL (4.8-10.8) H D 07/30/18 04:14 RBC 2.99 Mil/uL (3.80-5.20) L 07/30/18 04:14 Hgb 8.2 g/dL (11.0-16.0) L 07/30/18 04:14 Hct 26.8 % (34.0-47.0) L 07/30/18 04:14 MCV 89.7 fL (81.0-99.0) D 07/30/18 04:14 MCH 27.3 pg (27.0-31.0) 07/30/18 04:14 MCHC 30.4 g/dL (33.0-37.0) L 07/30/18 04:14 RDW 18.0 % (11.5-14.5) H 07/30/18 04:14 Plt Count 168 K/uL (130-400) 07/30/18 04:14 MPV 7.7 fL (7.2-11.7) 07/30/18 04:14 Neut % (Auto) 69.9 % (50.0-75.0) 07/30/18 00:29 Lymph % (Auto) 22.0 % (20.0-40.0) 07/30/18 00:29 [place] % (Auto) 2.8 % (0.0-10.0) 07/30/18 00:29 Eos % (Auto) 4.9 % (0.0-4.0) H 07/30/18 00:29 Baso % (Auto) 0.4 % (0.0-2.0) 07/30/18 00:29 Neut # (Auto) 10.9 K/uL (1.8-7.0) H 07/30/18 00:29 Lymph # (Auto) 3.5 K/uL (1.0-4.3) 07/30/18 00:29 [place] # (Auto) 0.4 K/uL (0.0-0.8) 07/30/18 00:29 Eos # (Auto) 0.8 K/uL (0.0-0.7) H 07/30/18 00:29 Baso # (Auto) 0.1 K/uL (0.0-0.2) 07/30/18 00:29 Neutrophils % (Manual) 41 % (50-75) L 07/30/18 04:14 Band Neutrophils % 3 % (0-2) H 07/30/18 04:14 Lymphocytes % (Manual) 49 % (20-40) H 07/30/18 04:14 Reactive Lymphs % 3 % (0-0) H 07/30/18 04:14 Monocytes % (Manual) 3 % (0-10) 07/30/18 04:14 Eosinophils % (Manual) 1 % (0-4) 07/30/18 04:14 Basophils % (Manual) 1 % (0-2) 05/14/18 11:56 Metamyelocytes % 1 % (0-0) H 05/17/18 06:27 Myelocytes % 2 % (0-0) H 05/15/18 22:12 Toxic Granulation Present 05/22/18 06:26 Dohle Bodies Present 05/17/18 06:27 Platelet Estimate Normal (NORMAL) 07/30/18 04:14 Plt Clumps, EDTA Present 05/14/18 11:56 Large Platelets Present 05/22/18 06:26 RBC Morphology Normal 05/18/18 06:25 Polychromasia Slight 05/22/18 06:26 Hypochromasia (manual) Slight 05/22/18 06:26 Poikilocytosis (manual Slight 05/16/18 18:57 Anisocytosis (manual) Slight 05/22/18 06:26 Microcytosis (manual) Slight 05/15/18 16:37 Macrocytosis (manual) Slight 05/15/18 16:37 Target Cells Slight 05/16/18 18:57 Tear Drop Cells Slight 05/15/18 09:54 Ovalocytes Slight 05/15/18 22:12 Retic Count 3.2 % (0.5-1.5) H 06/21/18 06:52 PT 14.3 SECONDS (9.7-12.2) H 06/10/18 07:05 INR 1.3 06/10/18 07:05 APTT 33 SECONDS (21-34) 05/25/18 06:16 Puncture Site L fem by dr esqueda 07/30/18 03:52 pCO2 88 mm/Hg (35-45) H* 07/30/18 03:52 pO2 71 mm/Hg (80-100) L 07/30/18 03:52 HCO3 19.9 mmol/L (21-28) L 07/30/18 03:52 ABG pH 7.08 (7.35-7.45) L* 07/30/18 03:52 ABG Total CO2 28.8 mmol/L (22-28) H 07/30/18 03:52 ABG O2 Saturation 88.3 % (95-98) L 07/30/18 03:52 ABG Base Excess -6.0 mmol/L (-2.0-3.0) L 07/30/18 03:52 ABG Hemoglobin 9.2 g/dL (11.7-17.4) L 05/17/18 13:28 ABG Carboxyhemoglobin 0 % (0.5-1.5) L 05/17/18 13:28 POC ABG HHb (Measured) 3.5 % (0.0-5.0) 05/17/18 13:28 ABG Methemoglobin 0.0 % (0.0-3.0) 05/17/18 13:28 Jonathan Test Na 07/30/18 03:52 ABG Potassium 5.2 mmol/L (3.6-5.2) 07/30/18 03:52 VBG pH 7.45 (7.32-7.43) H 07/15/18 14:22 VBG pCO2 39 mmHg (40-60) L 07/15/18 14:22 VBG HCO3 26.9 mmol/L 07/15/18 14:22 VBG Total CO2 28.3 mmol/L (22-28) H 07/15/18 14:22 VBG O2 Sat (Calc) 85.7 % (40-65) H 07/15/18 14:22 VBG Base Excess 3.0 mmol/L (0.0-2.0) H 07/15/18 14:22 VBG Potassium 3.5 mmol/L (3.6-5.2) L 07/15/18 14:22 A-a O2 Difference 65.0 mm/Hg 07/30/18 00:35 Respiratory Index 1.7 07/30/18 00:35 Hgb O2 Saturation 96.5 % (95.0-98.0) 05/17/18 13:28 Sodium 150.0 mmol/l (132-148) H 07/30/18 03:52 Chloride 110.0 mmol/L (98-107) H 07/30/18 03:52 Glucose 180 mg/dl (65-105) H 07/30/18 03:52 Lactate 15.8 mmol/L (0.7-2.1) H* 07/30/18 03:52 Vent Mode Prvc 05/17/18 05:15 Mechanical Rate 20 05/17/18 05:15 FiO2 21.0 % 07/30/18 00:35 Tidal Volume 500 05/17/18 05:15 PEEP 5 05/17/18 05:15 Crit Value Called To Dr jackson 07/30/18 03:52 Crit Value Called By Tonny collins rt 07/30/18 03:52 Crit Value Read Back Y 07/30/18 03:52 Blood Gas Notified Time 355 07/30/18 03:52 Sodium 150 mmol/L (132-148) H 07/30/18 04:14 Potassium 5.5 mmol/L (3.6-5.2) H 07/30/18 04:14 Chloride 107 mmol/L (98-107) 07/30/18 04:14 Carbon Dioxide 21 mmol/L (22-30) L 07/30/18 04:14 Anion Gap 28 (10-20) H 07/30/18 04:14 BUN 8 mg/dL (7-17) 07/30/18 04:14 Creatinine 1.0 mg/dL (0.7-1.2) 07/30/18 04:14 Est GFR ( Amer) > 60 07/30/18 04:14 Est GFR (Non-Af Amer) > 60 07/30/18 04:14 POC Glucose (mg/dL) 86 mg/dL (65-110) 07/30/18 03:30 Random Glucose 180 mg/dL (65-105) H 07/30/18 04:14 Hemoglobin A1c 5.7 % (4.2-6.5) 05/17/18 06:27 Lactic Acid 1.9 mmol/L (0.7-2.1) 05/15/18 09:54 Calcium 9.2 mg/dl (8.6-10.4) 07/30/18 04:14 Phosphorus 6.8 mg/dL (2.5-4.5) H 07/30/18 04:14 Magnesium 1.8 mg/dL (1.6-2.3) 07/30/18 04:14 Iron 17 ug/dL (37-170) L 06/21/18 11:54 TIBC 238 ug/dL (250-450) L 06/21/18 11:54 % Saturation 7 (20-55) L 06/21/18 11:54 Ferritin 106.0 ng/mL 07/29/18 06:31 Total Bilirubin 0.4 mg/dL (0.2-1.3) 07/30/18 04:14 AST 198 U/L (14-36) H D 07/30/18 04:14 ALT 121 U/L (9-52) H D 07/30/18 04:14 Alkaline Phosphatase 108 U/L (38-126) 07/30/18 04:14 Total Protein 4.8 g/dL (6.3-8.3) L 07/30/18 04:14 Albumin 2.3 g/dL (3.5-5.0) L D 07/30/18 04:14 Globulin 2.5 gm/dL (2.2-3.9) 07/30/18 04:14 Albumin/Globulin Ratio 0.9 (1.0-2.1) L 07/30/18 04:14 Prealbumin 11.6 mg/dL (17.6-36.0) L 07/08/18 19:44 Triglycerides 195 mg/dL (0-149) H 06/03/18 06:54 Cholesterol 59 mg/dL (0-199) 06/03/18 06:54 LDL Cholesterol Direct < 30 mg/dL (0-129) 06/03/18 06:54 HDL Cholesterol 23 mg/dL (30-70) L 06/03/18 06:54 Amylase 97 U/L (30-110) 05/14/18 12:12 Lipase 117 U/L (23-300) 05/14/18 12:12 Vitamin A 33 mcg/dL (38-98) L 07/08/18 19:44 Vitamin B12 508 pg/mL (239-931) 07/08/18 19:44 Vitamin C 0.8 mg/dL (0.3-2.7) 07/14/18 13:35 25-OH Vitamin D Total < 12.8 NG/ML (30.0-100.0) L 07/08/18 19:44 Alpha-Tocopherol Vit E 13.2 mg/L (5.7-19.9) 07/08/18 19:44 Gamma-Tocopherol Vit E 0.8 mg/L (<=4.3) 07/08/18 19:44 Folate 12.6 ng/mL 06/01/18 07:14 Procalcitonin 0.15 NG/ML (0.19-0.49) L 07/15/18 07:43 Beta HCG, Quant < 2.39 mIU/ML 07/22/18 07:00 Cortisol AM Sample 16.4 ug/dL (4.46-22.7) 07/30/18 03:02 Arterial Blood Potassium 5.2 mmol/L (3.6-5.2) 07/30/18 03:52 Venous Blood Potassium 3.5 mmol/L (3.6-5.2) L 07/15/18 14:22 Urine Color Yellow (YELLOW) 07/30/18 01:42 Urine Clarity Hazy (Clear) 07/30/18 01:42 Urine pH 6.0 (5.0-8.0) 07/30/18 01:42 Ur Specific [place] 1.016 (1.003-1.030) 07/30/18 01:42 Urine Protein Negative mg/dL (NEGATIVE) 07/30/18 01:42 Urine Glucose (UA) Normal mg/dL (Normal) 07/30/18 01:42 Urine Ketones Negative mg/dL (NEGATIVE) 07/30/18 01:42 Urine Blood Negative (NEGATIVE) 07/30/18 01:42 Urine Nitrate Negative (NEGATIVE) 07/30/18 01:42 Urine Bilirubin Negative (NEGATIVE) 07/30/18 01:42 Urine Urobilinogen Normal mg/dL (0.2-1.0) 07/30/18 01:42 Ur Leukocyte Esterase Neg Mauro/uL (Negative) 07/30/18 01:42 Urine WBC (Auto) 1 /hpf (0-5) 07/30/18 01:42 Urine RBC (Auto) 1 /hpf (0-3) 07/30/18 01:42 Ur Squamous Epith Cells 4 /hpf (0-5) 07/30/18 01:42 Ur Transition Epith Cell < 1 /hpf (0-3) 07/15/18 19:48 Calcium Oxalate Crystal Rare /hpf (<OCC) 05/22/18 13:30 Amorphous Sediment Occ /ul (<OCC) H 07/30/18 01:42 Urine Bacteria Rare (<OCC) 07/30/18 01:42 Urine Yeast (Budding) Occ /hpf (NEGATIVE) H 07/30/18 01:42 Urine HCG, Qual Negative (NEGATIVE) 06/10/18 09:14 Stool Occult Blood Positive (NEGATIVE) H 05/20/18 10:41 Stool Leukocytes, Qual Negative (NEGATIVE) 05/25/18 21:09 Vancomycin Trough 7.8 ug/mL (5.0-10.0) 07/17/18 13:41 Random Vancomycin 11.2 ug/mL 07/19/18 14:14 Urine Opiates Screen Negative (NEGATIVE) 05/14/18 02:43 Urine Methadone Screen Negative (NEGATIVE) 05/14/18 02:43 Ur Barbiturates Screen Negative (NEGATIVE) 05/14/18 02:43 Ur Phencyclidine Scrn Negative (NEGATIVE) 05/14/18 02:43 Ur Amphetamines Screen Negative (NEGATIVE) 05/14/18 02:43 U Benzodiazepines Scrn Positive (NEGATIVE) 05/14/18 02:43 U Oth Cocaine Metabols Negative (NEGATIVE) 05/14/18 02:43 U Cannabinoids Screen Negative (NEGATIVE) 05/14/18 02:43 Zinc 62 mcg/dL (60-130) 07/08/18 19:44 C. difficile Ag & Toxin Negative (NEGATIVE) 07/17/18 13:06 Influenza Typ A,B (EIA) Negative for flu a/b (NEGATIVE) 07/29/18 12:11 Blood Type O POSITIVE 05/14/18 12:56 Antibody Screen Negative 05/14/18 12:56 - Hospital Course Hospital Course: As per H&P, "37 yo F w/ PMHx of chronic abdominal pain and recurrent SBOs s/p gastric bypass(2013), asthma, HTN, HLD, DM2 presents to ED with severe abdominal pain x1 day. Pt states the pain is isolated to the R/L UQ, radiates bilaterally around to her back, and not associated w/ food. Pt states she has had 3 episodes of NBNB emesis, denies chest pain, SOB, diarrhea, constipation; pt states she has been able to pass flatus. Patient admits that she only began having these episodes of abdominal pain requiring frequent hospitalizations after her gastric bypass surgery 4 yrs ago" Hospitalization course: Patient was admitted to hospital for SBO workup. Patient initially placed on NPO and fluids. Surgical team consulted. extensive management by surgical team including diagnostic laparoscopy, explorative laparotomy, Reduction of internal hernia, Lysis of adhesions, Drainage of abdominal collections, temporary abdominal closure, EGD. ICU team was consulted and patient was management at the ICU for close monitoring and post-op care. Patient underwent surgery agan on 05/16/18 Re-exploration, Small bowel resection of ileum, small bowel resection of Binta limb with gastrojejunostomy, reversal of bypass, primary anastomosis of ileum-ileum, ileum-ileum, and ileum-jejunum, Gastrostomy tube in bypassed stomach, EGD. Several drains were placed, such as NGT, gastrostomy tube, wound vac to abdomen, min drains. Surgical team continued to follow for f/u surgery to restore GI. Surgical plans were pending optimization of patient, adequate healing from prior surgery, and evidence of bacteremia clearance. Infectious disease consulted placed during hospital stay, with various courses of antibiotics given to patient based on results of the collection of several cultures from sources including peritoneal fluid, wound culture, blood culture, urine culture, picc line tip. During hospital stay, patient was assessed and managed for acute findings such as anemia, thrombocytosis, diarrhea, tachycardia, anxiety. Hematology oncology was consulted for anemia. GI was consulted for further recs on SBO. IR radiology was consulted and was on case for drain placements and eval, as well as PICC line placement. Psychiatry consult was placed for patient's excessive anxiety and threating to leave AMA. Psych followed patient and evaluated throughout stay for severe depression, anxiety, insomnia as well as threats to leave and to kill herself. Other services involved in the care of patient included Social work, wound care, pastoral care services, physical therapy. Patient history of asthma, hypothryroidsm, hypercholesteremia, HTN, Nicotine use disorder, diabetes were managed extensively by medicine team. electrolytes inbalances were noted and repleted as needed, with monitoring of morning blood work. Patient was placed on DVT and GI prophylaxis. Rapid response was called on 07/29/18 at 23:43 for hypotension. Medicine team arrival at 23:45. initial Blood pressure read at 51/25, HR 143, O2 sat 98%, RR 20. Upon encounter, Patient was observed to be lethargic but arousable. CBC, CMP, arterial blood gas, blood and urne culture, drug test gen toxicology stat. Stat EKG ordered. first, second and third bag of 1 L of NS bolus each given to patient. Vitals were monitoring frequently. tylenol given for fever noticed on vitals. ICU contacted to further evaluate the patient for possible transfer to ICU for pressors. Second rapid response called at 03:18 on 07/30/2018, medicine team arrival at 03:19. as per nurse, patient went to the bathroom for bowel movement, leaving bathroom and back to bed with assistance of nurse and became more lethargic. as per nurse and ICU physician who was in the room during event, patient had a purse with Syringes, empty Hydromorphone and lorazepam bottles and pill bottle. Upon arrival patient was not responding, slowing respiration. Patient was intubated. no pulse was detected. Code blue called at 03:20. CPR, several rounds of medications given to patient. CPR and ACLS continue for more than an hour. Patient in PEA. Code ended and patient pronounced at 04:22 am. EDRS number [id number]. Attending notified family by calling daughter who is the person of contact, but there was no answer. two voice messages were left and nurse speech pathology supervisor continue to try contacting family. Morning attending communicated with Patient's mother about patient's passing. white shoe examiner contacted, autopsy to follow. This is a brief summary of patient' hospitalization course. For more information, please refer to patient's EMR. - Date & Time of H&P Date of H&P: 05/14/18 Time of H&P: 03:25 Discharge Exam - Head Exam Head Exam: ATRAUMATIC, NORMAL INSPECTION, NORMOCEPHALIC Discharge Plan - Follow Up Plan Condition: Disposition: WITH WITHOUT AUTOPSY Referrals: Non [facility] Provider, [Primary Care Provider] - <Franki Denise - Last Filed: 08/07/18 13:38> Provider - Provider Date of Admission: 05/14/18 03:06 Attending physician: Wesley Kirby MD Primary care physician: Non [facility] Provider Hospital Course - Lab Results Lab Results: Micro Results 07/29/18 00:00 Blood-Venous Blood Culture - Final NO GROWTH AFTER 5 DAYS 07/29/18 00:00 Blood-Venous Gram Stain - Final TEST NOT PERFORMED 07/29/18 13:28 Blood-Thru Central Line Blood Culture - Final NO GROWTH AFTER 5 DAYS 07/29/18 13:28 Blood-Thru Central Line Gram Stain - Final TEST NOT PERFORMED 07/29/18 12:11 Blood-Thru Central Line S.aureus & Coag-Neg Staph PNA FISH - Final 07/29/18 12:11 Blood-Thru Central Line Blood Culture - Final Enterococcus Faecalis 07/29/18 12:11 Blood-Thru Central Line Gram Stain - Final 07/30/18 07:01 Urine,Catheterized Urine Culture - Final No Growth (<1,000 CFU/ML) 07/29/18 12:11 Urine Urine Culture - Final No Growth (<1,000 CFU/ML) 07/24/18 11:31 Blood Blood Culture - Final NO GROWTH AFTER 5 DAYS 07/24/18 11:31 Blood-Thru Central Line Blood Culture - Final NO GROWTH AFTER 5 DAYS 07/24/18 11:31 Blood-Thru Central Line Gram Stain - Final TEST NOT PERFORMED 07/24/18 11:31 Blood-Thru Central Line Blood Culture - Final NO GROWTH AFTER 5 DAYS 07/24/18 11:31 Blood-Thru Central Line Gram Stain - Final TEST NOT PERFORMED 07/24/18 13:45 Blood Blood Culture - Final NO GROWTH AFTER 5 DAYS 07/24/18 13:45 Blood Gram Stain - Final TEST NOT PERFORMED 07/18/18 07:54 Blood Blood Culture - Final NO GROWTH AFTER 5 DAYS 07/18/18 07:54 Blood Gram Stain - Final TEST NOT PERFORMED 07/18/18 07:09 Blood Blood Culture - Final NO GROWTH AFTER 5 DAYS 07/18/18 07:09 Blood Gram Stain - Final TEST NOT PERFORMED 07/15/18 14:47 Blood-Thru Central Line Blood Culture - Final NO GROWTH AFTER 5 DAYS 07/15/18 14:47 Blood-Thru Central Line Gram Stain - Final TEST NOT PERFORMED 07/15/18 14:47 Blood-Thru Central Line Blood Culture - Final NO GROWTH AFTER 5 DAYS 07/15/18 14:47 Blood-Thru Central Line Gram Stain - Final TEST NOT PERFORMED 07/14/18 16:16 Blood Blood Culture - Final NO GROWTH AFTER 5 DAYS 07/14/18 16:16 Blood Gram Stain - Final TEST NOT PERFORMED 07/14/18 16:16 Blood Blood Culture - Final NO GROWTH AFTER 5 DAYS 07/14/18 16:16 Blood Gram Stain - Final TEST NOT PERFORMED 07/17/18 21:29 Catheter Tip Catheter Tip Culture - Final No growth. 07/16/18 17:10 Blood-Thru Central Line S.aureus & Coag-Neg Staph PNA FISH - Final 07/16/18 17:10 Blood-Thru Central Line Blood Culture - Final Enterococcus Faecalis 07/16/18 17:10 Blood-Thru Central Line Gram Stain - Final 07/16/18 17:10 Blood-Thru Central Line Blood Culture - Final Enterococcus Faecalis 07/16/18 17:10 Blood-Thru Central Line Gram Stain - Final 07/15/18 19:48 Sputum Gram Stain - Final 07/15/18 19:48 Sputum Sputum Culture - Final NORMAL ORAL CARRILLO 07/15/18 19:48 Urine Urine Culture - Final No Growth (<1,000 CFU/ML) 07/12/18 18:47 Abdomen Gram Stain - Final 07/12/18 18:47 Abdomen Wound Culture - Final Pseudomonas Aeruginosa Yudith Lusitaniae 06/22/18 20:19 Abdomen Gram Stain - Final 06/22/18 20:19 Abdomen Wound Culture - Final Pseudomonas Aeruginosa 06/22/18 20:19 Peg Site Gram Stain - Final 06/22/18 20:19 Peg Site Wound Culture - Final Pseudomonas Aeruginosa 06/13/18 10:48 Abdomen Gram Stain - Final 06/13/18 10:48 Abdomen Wound Culture - Final Coagulase Neg Staphylococcus Enterococcus Raffinosus 06/03/18 21:51 Stool Stool Culture - Final NO SALMONELLA, SHIGELLA OR CAMPYLOBACTER ISOLATED. 05/31/18 07:46 Abdomen Gram Stain - Final 05/31/18 07:46 Abdomen Wound Culture - Final Acinetobacter Baumannii Enterococcus Faecalis 05/28/18 21:48 Stool Ova and Parasite Concentrate Exam - Final 05/22/18 13:30 Blood-Thru Central Line Blood Culture - Final NO GROWTH AFTER 5 DAYS 05/22/18 13:30 Blood-Thru Central Line Gram Stain - Final TEST NOT PERFORMED 05/22/18 14:10 Blood-Venous Blood Culture - Final NO GROWTH AFTER 5 DAYS 05/22/18 14:10 Blood-Venous Gram Stain - Final TEST NOT PERFORMED 05/22/18 14:40 Blood-Venous Blood Culture - Final NO GROWTH AFTER 5 DAYS 05/22/18 14:40 Blood-Venous Gram Stain - Final TEST NOT PERFORMED 05/22/18 14:00 Blood-Thru Central Line Blood Culture - Final NO GROWTH AFTER 5 DAYS 05/22/18 14:00 Blood-Thru Central Line Gram Stain - Final TEST NOT PERFORMED 05/25/18 21:09 Stool Stool Culture - Final NO SALMONELLA, SHIGELLA OR CAMPYLOBACTER ISOLATED. 05/25/18 21:09 Stool Ova and Parasite Concentrate Exam - Final 05/25/18 17:45 Naris MRSA Culture - Final MRSA NOT DETECTED 05/23/18 08:02 Other: Please Indicate Gram Stain - Final 05/23/18 08:02 Other: Please Indicate Wound Culture - Final Yudith Albicans 05/22/18 15:33 Urine,Clean Catch Urine Culture - Final No Growth (<1,000 CFU/ML) 05/15/18 12:51 Blood-Thru Central Line Blood Culture - Final NO GROWTH AFTER 5 DAYS 05/15/18 12:51 Blood-Thru Central Line Gram Stain - Final TEST NOT PERFORMED 05/15/18 12:51 Blood-Thru Central Line Blood Culture - Final NO GROWTH AFTER 5 DAYS 05/15/18 12:51 Blood-Thru Central Line Gram Stain - Final TEST NOT PERFORMED 05/14/18 16:56 Peritoneal Fluid Gram Stain - Final 05/14/18 16:56 Peritoneal Fluid Body Fluid Culture - Final Pseudomonas Aeruginosa 05/14/18 20:37 Naris MRSA Culture (Admit) - Final MRSA NOT DETECTED 05/15/18 17:39 Urine Urine Culture - Final No Growth (<1,000 CFU/ML) Most Recent Lab Values WBC 30.2 K/uL (4.8-10.8) H D 07/30/18 04:14 RBC 2.99 Mil/uL (3.80-5.20) L 07/30/18 04:14 Hgb 8.2 g/dL (11.0-16.0) L 07/30/18 04:14 Hct 26.8 % (34.0-47.0) L 07/30/18 04:14 MCV 89.7 fL (81.0-99.0) D 07/30/18 04:14 MCH 27.3 pg (27.0-31.0) 07/30/18 04:14 MCHC 30.4 g/dL (33.0-37.0) L 07/30/18 04:14 RDW 18.0 % (11.5-14.5) H 07/30/18 04:14 Plt Count 168 K/uL (130-400) 07/30/18 04:14 MPV 7.7 fL (7.2-11.7) 07/30/18 04:14 Neut % (Auto) 69.9 % (50.0-75.0) 07/30/18 00:29 Lymph % (Auto) 22.0 % (20.0-40.0) 07/30/18 00:29 [place] % (Auto) 2.8 % (0.0-10.0) 07/30/18 00:29 Eos % (Auto) 4.9 % (0.0-4.0) H 07/30/18 00:29 Baso % (Auto) 0.4 % (0.0-2.0) 07/30/18 00:29 Neut # (Auto) 10.9 K/uL (1.8-7.0) H 07/30/18 00:29 Lymph # (Auto) 3.5 K/uL (1.0-4.3) 07/30/18 00:29 [place] # (Auto) 0.4 K/uL (0.0-0.8) 07/30/18 00:29 Eos # (Auto) 0.8 K/uL (0.0-0.7) H 07/30/18 00:29 Baso # (Auto) 0.1 K/uL (0.0-0.2) 07/30/18 00:29 Neutrophils % (Manual) 41 % (50-75) L 07/30/18 04:14 Band Neutrophils % 3 % (0-2) H 07/30/18 04:14 Lymphocytes % (Manual) 49 % (20-40) H 07/30/18 04:14 Reactive Lymphs % 3 % (0-0) H 07/30/18 04:14 Monocytes % (Manual) 3 % (0-10) 07/30/18 04:14 Eosinophils % (Manual) 1 % (0-4) 07/30/18 04:14 Basophils % (Manual) 1 % (0-2) 05/14/18 11:56 Metamyelocytes % 1 % (0-0) H 05/17/18 06:27 Myelocytes % 2 % (0-0) H 05/15/18 22:12 Toxic Granulation Present 05/22/18 06:26 Dohle Bodies Present 05/17/18 06:27 Platelet Estimate Normal (NORMAL) 07/30/18 04:14 Plt Clumps, EDTA Present 05/14/18 11:56 Large Platelets Present 05/22/18 06:26 RBC Morphology Normal 05/18/18 06:25 Polychromasia Slight 05/22/18 06:26 Hypochromasia (manual) Slight 05/22/18 06:26 Poikilocytosis (manual Slight 05/16/18 18:57 Anisocytosis (manual) Slight 05/22/18 06:26 Microcytosis (manual) Slight 05/15/18 16:37 Macrocytosis (manual) Slight 05/15/18 16:37 Target Cells Slight 05/16/18 18:57 Tear Drop Cells Slight 05/15/18 09:54 Ovalocytes Slight 05/15/18 22:12 Retic Count 3.2 % (0.5-1.5) H 06/21/18 06:52 PT 14.3 SECONDS (9.7-12.2) H 06/10/18 07:05 INR 1.3 06/10/18 07:05 APTT 33 SECONDS (21-34) 05/25/18 06:16 Puncture Site L fem by dr [email or web address] 07/30/18 03:52 pCO2 88 mm/Hg (35-45) H* 07/30/18 03:52 pO2 71 mm/Hg (80-100) L 07/30/18 03:52 HCO3 19.9 mmol/L (21-28) L 07/30/18 03:52 ABG pH 7.08 (7.35-7.45) L* 07/30/18 03:52 ABG Total CO2 28.8 mmol/L (22-28) H 07/30/18 03:52 ABG O2 Saturation 88.3 % (95-98) L 07/30/18 03:52 ABG Base Excess -6.0 mmol/L (-2.0-3.0) L 07/30/18 03:52 ABG Hemoglobin 9.2 g/dL (11.7-17.4) L 05/17/18 13:28 ABG Carboxyhemoglobin 0 % (0.5-1.5) L 05/17/18 13:28 POC ABG HHb (Measured) 3.5 % (0.0-5.0) 05/17/18 13:28 ABG Methemoglobin 0.0 % (0.0-3.0) 05/17/18 13:28 Jonathan Test Na 07/30/18 03:52 ABG Potassium 5.2 mmol/L (3.6-5.2) 07/30/18 03:52 VBG pH 7.45 (7.32-7.43) H 07/15/18 14:22 VBG pCO2 39 mmHg (40-60) L 07/15/18 14:22 VBG HCO3 26.9 mmol/L 07/15/18 14:22 VBG Total CO2 28.3 mmol/L (22-28) H 07/15/18 14:22 VBG O2 Sat (Calc) 85.7 % (40-65) H 07/15/18 14:22 VBG Base Excess 3.0 mmol/L (0.0-2.0) H 07/15/18 14:22 VBG Potassium 3.5 mmol/L (3.6-5.2) L 07/15/18 14:22 A-a O2 Difference 65.0 mm/Hg 07/30/18 00:35 Respiratory Index 1.7 07/30/18 00:35 Hgb O2 Saturation 96.5 % (95.0-98.0) 05/17/18 13:28 Sodium 150.0 mmol/l (132-148) H 07/30/18 03:52 Chloride 110.0 mmol/L (98-107) H 07/30/18 03:52 Glucose 180 mg/dl (65-105) H 07/30/18 03:52 Lactate 15.8 mmol/L (0.7-2.1) H* 07/30/18 03:52 Vent Mode Prvc 05/17/18 05:15 Mechanical Rate 20 05/17/18 05:15 FiO2 21.0 % 07/30/18 00:35 Tidal Volume 500 05/17/18 05:15 PEEP 5 05/17/18 05:15 Crit Value Called To Dr jackson 07/30/18 03:52 Crit Value Called By Tonny collins rt 07/30/18 03:52 Crit Value Read Back Y 07/30/18 03:52 Blood Gas Notified Time 355 07/30/18 03:52 Sodium 150 mmol/L (132-148) H 07/30/18 04:14 Potassium 5.5 mmol/L (3.6-5.2) H 07/30/18 04:14 Chloride 107 mmol/L (98-107) 07/30/18 04:14 Carbon Dioxide 21 mmol/L (22-30) L 07/30/18 04:14 Anion Gap 28 (10-20) H 07/30/18 04:14 BUN 8 mg/dL (7-17) 07/30/18 04:14 Creatinine 1.0 mg/dL (0.7-1.2) 07/30/18 04:14 Est GFR ( Amer) > 60 07/30/18 04:14 Est GFR (Non-Af Amer) > 60 07/30/18 04:14 POC Glucose (mg/dL) 86 mg/dL (65-110) 07/30/18 03:30 Random Glucose 180 mg/dL (65-105) H 07/30/18 04:14 Hemoglobin A1c 5.7 % (4.2-6.5) 05/17/18 06:27 Lactic Acid 1.9 mmol/L (0.7-2.1) 05/15/18 09:54 Calcium 9.2 mg/dl (8.6-10.4) 07/30/18 04:14 Phosphorus 6.8 mg/dL (2.5-4.5) H 07/30/18 04:14 Magnesium 1.8 mg/dL (1.6-2.3) 07/30/18 04:14 Iron 17 ug/dL (37-170) L 06/21/18 11:54 TIBC 238 ug/dL (250-450) L 06/21/18 11:54 % Saturation 7 (20-55) L 06/21/18 11:54 Ferritin 106.0 ng/mL 07/29/18 06:31 Total Bilirubin 0.4 mg/dL (0.2-1.3) 07/30/18 04:14 AST 198 U/L (14-36) H D 07/30/18 04:14 ALT 121 U/L (9-52) H D 07/30/18 04:14 Alkaline Phosphatase 108 U/L (38-126) 07/30/18 04:14 Total Protein 4.8 g/dL (6.3-8.3) L 07/30/18 04:14 Albumin 2.3 g/dL (3.5-5.0) L D 07/30/18 04:14 Globulin 2.5 gm/dL (2.2-3.9) 07/30/18 04:14 Albumin/Globulin Ratio 0.9 (1.0-2.1) L 07/30/18 04:14 Prealbumin 11.6 mg/dL (17.6-36.0) L 07/08/18 19:44 Triglycerides 195 mg/dL (0-149) H 06/03/18 06:54 Cholesterol 59 mg/dL (0-199) 06/03/18 06:54 LDL Cholesterol Direct < 30 mg/dL (0-129) 06/03/18 06:54 HDL Cholesterol 23 mg/dL (30-70) L 06/03/18 06:54 Amylase 97 U/L (30-110) 05/14/18 12:12 Lipase 117 U/L (23-300) 05/14/18 12:12 Vitamin A 33 mcg/dL (38-98) L 07/08/18 19:44 Vitamin B12 508 pg/mL (239-931) 07/08/18 19:44 Vitamin C 0.8 mg/dL (0.3-2.7) 07/14/18 13:35 25-OH Vitamin D Total < 12.8 NG/ML (30.0-100.0) L 07/08/18 19:44 Alpha-Tocopherol Vit E 13.2 mg/L (5.7-19.9) 07/08/18 19:44 Gamma-Tocopherol Vit E 0.8 mg/L (<=4.3) 07/08/18 19:44 Folate 12.6 ng/mL 06/01/18 07:14 Ethanolamine None detected 07/30/18 04:10 Procalcitonin 0.15 NG/ML (0.19-0.49) L 07/15/18 07:43 Beta HCG, Quant < 2.39 mIU/ML 07/22/18 07:00 Cortisol AM Sample 16.4 ug/dL (4.46-22.7) 07/30/18 03:02 Arterial Blood Potassium 5.2 mmol/L (3.6-5.2) 07/30/18 03:52 Venous Blood Potassium 3.5 mmol/L (3.6-5.2) L 07/15/18 14:22 Urine Color Yellow (YELLOW) 07/30/18 01:42 Urine Clarity Hazy (Clear) 07/30/18 01:42 Urine pH 6.0 (5.0-8.0) 07/30/18 01:42 Ur Specific [place] 1.016 (1.003-1.030) 07/30/18 01:42 Urine Protein Negative mg/dL (NEGATIVE) 07/30/18 01:42 Urine Glucose (UA) Normal mg/dL (Normal) 07/30/18 01:42 Urine Ketones Negative mg/dL (NEGATIVE) 07/30/18 01:42 Urine Blood Negative (NEGATIVE) 07/30/18 01:42 Urine Nitrate Negative (NEGATIVE) 07/30/18 01:42 Urine Bilirubin Negative (NEGATIVE) 07/30/18 01:42 Urine Urobilinogen Normal mg/dL (0.2-1.0) 07/30/18 01:42 Ur Leukocyte Esterase Neg Mauro/uL (Negative) 07/30/18 01:42 Urine WBC (Auto) 1 /hpf (0-5) 07/30/18 01:42 Urine RBC (Auto) 1 /hpf (0-3) 07/30/18 01:42 Ur Squamous Epith Cells 4 /hpf (0-5) 07/30/18 01:42 Ur Transition Epith Cell < 1 /hpf (0-3) 07/15/18 19:48 Calcium Oxalate Crystal Rare /hpf (<OCC) 05/22/18 13:30 Amorphous Sediment Occ /ul (<OCC) H 07/30/18 01:42 Urine Bacteria Rare (<OCC) 07/30/18 01:42 Urine Yeast (Budding) Occ /hpf (NEGATIVE) H 07/30/18 01:42 Urine HCG, Qual Negative (NEGATIVE) 06/10/18 09:14 Stool Occult Blood Positive (NEGATIVE) H 05/20/18 10:41 Stool Leukocytes, Qual Negative (NEGATIVE) 05/25/18 21:09 Vancomycin Trough 7.8 ug/mL (5.0-10.0) 07/17/18 13:41 Random Vancomycin 11.2 ug/mL 07/19/18 14:14 Urine Opiates Screen Negative (NEGATIVE) 05/14/18 02:43 Urine Methadone Screen Negative (NEGATIVE) 05/14/18 02:43 Ur Barbiturates Screen Negative (NEGATIVE) 05/14/18 02:43 Ur Phencyclidine Scrn Negative (NEGATIVE) 05/14/18 02:43 Ur Amphetamines Screen Negative (NEGATIVE) 05/14/18 02:43 U Benzodiazepines Scrn Positive (NEGATIVE) 05/14/18 02:43 U Oth Cocaine Metabols Negative (NEGATIVE) 05/14/18 02:43 U Cannabinoids Screen Negative (NEGATIVE) 05/14/18 02:43 Toxicology Panel see note 07/30/18 04:10 Methyl Alcohol Level None detected 07/30/18 04:10 Isopropanol None detected 07/30/18 04:10 Acetone Level None detected 07/30/18 04:10 Zinc 62 mcg/dL (60-130) 07/08/18 19:44 C. difficile Ag & Toxin Negative (NEGATIVE) 07/17/18 13:06 Influenza Typ A,B (EIA) Negative for flu a/b (NEGATIVE) 07/29/18 12:11 Blood Type O POSITIVE 05/14/18 12:56 Antibody Screen Negative 05/14/18 12:56 Attending/Attestation - Attestation I have personally seen and examined this patient.: No I have fully participated in the care of the patient.: Yes I have reviewed all pertinent clinical information, including history, physical exam and plan: Yes Notes (Text): 08/07/18 13:38 This is a late entry. Please note that the discharge summary was gone over in detail with resident Dr. Banegas. Franki Denise D.O.
--- NOTE | 2018-07-31 22:06 | CP.PCM.PN ---
Subjective - Date & Time of Evaluation Date of Evaluation: 07/29/18 Time of Evaluation: 19:00 - Subjective Subjective: No complaints. Objective - Vital Signs/Intake and Output Vital Signs (last 24 hours): Temp Pulse Resp BP Pulse Ox 99.2 F 69 20 72/43 L 92 L 07/29/18 23:20 07/29/18 23:20 07/29/18 23:20 07/29/18 23:20 07/29/18 23:20 - Labs Labs: 07/30/18 04:14 07/30/18 04:14 PT 14.3 SECONDS (9.7-12.2) H 06/10/18 07:05 INR 1.3 06/10/18 07:05 APTT 33 SECONDS (21-34) 05/25/18 06:16 - Head Exam Head Exam: ATRAUMATIC - Eye Exam Eye Exam: Normal appearance - ENT Exam ENT Exam: Mucous Membranes Dry - Respiratory Exam Respiratory Exam: NORMAL BREATHING PATTERN - Cardiovascular Exam Cardiovascular Exam: +S1, +S2 - GI/Abdominal Exam GI & Abdominal Exam: Normal Bowel Sounds Assessment and Plan (1) Anemia Assessment & Plan: iron deficiency anemia resolved s/p IV iron anemia of chronic disease; will consider Procrit supplementation in an attempt to avoid further transfusions if hgb < 9 FOBT positive transfuse PRN Status: Acute
--- NOTE | 2018-08-02 19:31 | CARD ---
APPROVED REPORT Date of service: 07/30/2018 EKG Measurement Heart [id number] <Conclusion> Sinus tachycardia Nonspecific ST abnormality Abnormal ECG
== END 2018-07-30 07:25 | DRG 220 ==
LOC: SUPCPDRO 23:15 → C.ER 23:15 → C.9E 05-14 03:06 → C.6T 05-14 03:49 → C.9I 05-14 17:19 → UNDODISIN 05-14 19:00 → C.6T 05-25 13:17
PROVIDERS: ADMIT Internal Medicine; ATTEND Internal Medicine
PROC: 0W9J00Z Drainage of Pelvic Cavity with Drainage Device, Open Approach (ICD-10-PCS; 2018-05-14)
PROC: 0DJV4ZZ Inspection of Mesentery, Percutaneous Endoscopic Approach (ICD-10-PCS; 2018-05-14)
PROC: 0DJ08ZZ Inspection of Upper Intestinal Tract, Via Natural or Artificial Opening Endoscopic (ICD-10-PCS; 2018-05-14)
PROC: 05HM33Z Insertion of Infusion Device into Right Internal Jugular Vein, Percutaneous Approach (ICD-10-PCS; 2018-05-14)
PROC: 0DQV0ZZ Repair Mesentery, Open Approach (ICD-10-PCS; principal; 2018-05-14 13:15)
PROC: 0DTB0ZZ Resection of Ileum, Open Approach (ICD-10-PCS; 2018-05-16)
PROC: 0W9J0ZZ Drainage of Pelvic Cavity, Open Approach (ICD-10-PCS; 2018-05-16)
PROC: 0W9G0ZZ Drainage of Peritoneal Cavity, Open Approach (ICD-10-PCS; 2018-05-16)
PROC: 0DB60ZZ Excision of Stomach, Open Approach (ICD-10-PCS; 2018-05-16)
PROC: 0DBA0ZZ Excision of Jejunum, Open Approach (ICD-10-PCS; 2018-05-16)
PROC: 0D1A0ZB Bypass Jejunum to Ileum, Open Approach (ICD-10-PCS; 2018-05-16)
PROC: 0D1A0ZA Bypass Jejunum to Jejunum, Open Approach (ICD-10-PCS; 2018-05-16)
PROC: 0D1B0ZB Bypass Ileum to Ileum, Open Approach (ICD-10-PCS; 2018-05-16)
PROC: 0DTB0ZZ Resection of Ileum, Open Approach (ICD-10-PCS; 2018-05-16)
PROC: 0D9 Gastrointestinal System, Drainage (ICD-10-PCS; 2018-05-16)
PROC: 0D9680Z Drainage of Stomach with Drainage Device, Via Natural or Artificial Opening Endoscopic (ICD-10-PCS; 2018-05-16)
PROC: 0DH60UZ Insertion of Feeding Device into Stomach, Open Approach (ICD-10-PCS; 2018-05-16)
PROC: 3E0G76Z Introduction of Nutritional Substance into Upper GI, Via Natural or Artificial Opening (ICD-10-PCS; 2018-05-17)
PROC: 3E0336Z Introduction of Nutritional Substance into Peripheral Vein, Percutaneous Approach (ICD-10-PCS; 2018-06-05)
PROC: 02HV33Z Insertion of Infusion Device into Superior Vena Cava, Percutaneous Approach (ICD-10-PCS; 2018-07-22)
PROC: B518ZZA Fluoroscopy of Superior Vena Cava, Guidance (ICD-10-PCS; 2018-07-22)
PROC: B54MZZA Ultrasonography of Right Upper Extremity Veins, Guidance (ICD-10-PCS; 2018-07-22)
PROC: 5A12012 Performance of Cardiac Output, Single, Manual (ICD-10-PCS; 2018-07-30)
PROC: 0BH17EZ Insertion of Endotracheal Airway into Trachea, Via Natural or Artificial Opening (ICD-10-PCS; 2018-07-30)
PROC: 5A1935Z Respiratory Ventilation, Less than 24 Consecutive Hours (ICD-10-PCS; 2018-07-30)
DX: K95.89 Other complications of other bariatric procedure (principal); R65.21 Severe sepsis with septic shock; A41.9 Sepsis, unspecified organism; K55.029 Acute infarction of small intestine, extent unspecified; K56.50 Intestinal adhesions [bands], unspecified as to partial versus complete obstruction; I95.9 Hypotension, unspecified; T80.219A Unspecified infection due to central venous catheter, initial encounter; E87.2 Acidosis; E87.5 Hyperkalemia; E87.6 Hypokalemia; F11.20 Opioid dependence, uncomplicated; I46.9 Cardiac arrest, cause unspecified; T81.49XA Infection following a procedure, other surgical site, initial encounter; K62.5 Hemorrhage of anus and rectum; Z98.84 Bariatric surgery status; D63.8 Anemia in other chronic diseases classified elsewhere; E03.9 Hypothyroidism, unspecified; E11.9 Type 2 diabetes mellitus without complications; Z91.14 Patient's other noncompliance with medication regimen; D50.9 Iron deficiency anemia, unspecified; E66.9 Obesity, unspecified; E78.5 Hyperlipidemia, unspecified; E78.00 Pure hypercholesterolemia, unspecified; E83.42 Hypomagnesemia; F17.210 Nicotine dependence, cigarettes, uncomplicated; F41.0 Panic disorder [episodic paroxysmal anxiety]; F32.9 Major depressive disorder, single episode, unspecified; F41.1 Generalized anxiety disorder; G47.00 Insomnia, unspecified; G83.9 Paralytic syndrome, unspecified; I25.10 Atherosclerotic heart disease of native coronary artery without angina pectoris; G47.33 Obstructive sleep apnea (adult) (pediatric); J45.909 Unspecified asthma, uncomplicated; K29.70 Gastritis, unspecified, without bleeding; K46.9 Unspecified abdominal hernia without obstruction or gangrene; K90.9 Intestinal malabsorption, unspecified; K94.23 Gastrostomy malfunction; Y84.8 Other medical procedures as the cause of abnormal reaction of the patient, or of later complication, without mention of misadventure at the time of the procedure; Z79.899 Other long term (current) drug therapy; Z87.442 Personal history of urinary calculi; Z87.19 Personal history of other diseases of the digestive system; Z91.19 Patient's noncompliance with other medical treatment and regimen; Z90.3 Acquired absence of stomach [part of]; Z81.8 Family history of other mental and behavioral disorders; Z68.30 Body mass index [BMI] 30.0-30.9, adult